=== PATIENT | male | born 1950 | race Caucasian/White ===

== ENCOUNTER 2020-03-29 13:19 | Emergency (ER) | payer OTHER, MEDICARE, SELFPAY ==
[2020-03-29 13:42] VITALS: BP 147/87; PULSE 79; RESP 14; TEMP 36.1; O2SAT 95; BMI 33.4
--- NOTE | 2020-03-29 13:48 | XRR_ITS ---
PROCEDURE INFORMATION: Exam: XR Left Shoulder Exam date and time: 03/29/2020 2:06 PM Age: 70 years old Clinical indication: Injury or trauma; Fall; Initial encounter; Blunt trauma (contusions or hematomas; Shoulder; Left; Injury date: Today; Additional info: Fall, shoulder pain TECHNIQUE: Imaging protocol: XR Left shoulder. Views: 2 or more views. COMPARISON: No relevant prior studies available. FINDINGS: Bones/joints: Negative for acute abnormality Soft tissues: Normal. XR/XR shoulder LT min 2V* [id number] IMPRESSION: No acute findings.
--- NOTE | 2020-03-29 13:48 | XRR_ITS ---
PROCEDURE INFORMATION: Exam: XR Chest, 2 Views Exam date and time: 03/29/2020 2:03 PM Age: 70 years old Clinical indication: Injury or trauma; Fall; Initial encounter; Blunt trauma (contusions or hematomas); Injury date: Today TECHNIQUE: Imaging protocol: XR of the chest Views: 2 views. COMPARISON: CR Chest 1 [place] [id number] 05/21/2017 3:52 PM FINDINGS: Lungs: Unremarkable. No consolidation. Pleural space: Unremarkable. No pleural effusion. No pneumothorax. Heart/Mediastinum: Unremarkable. No cardiomegaly. Bones/joints: Unremarkable. XR/XR chest 2V* [id number] IMPRESSION: No acute findings.
--- NOTE | 2020-03-29 14:27 | W.ED.FALL ---
HPI - Fall General: Chief Complaint: Fall Stated Complaint: fall, shoulder pain Time Seen by Provider: 03/29/20 14:27 Source: patient Mode of arrival: ambulatory Limitations: no limitations History of Present Illness: HPI Narrative: Patient fell 2 days ago while [place]. Patient reports landing on his left shoulder area. Patient's had increased pain and discomfort to the left shoulder area. Patient has some difficulty of range of motion of left shoulder. Patient appears well. No obvious deformity is noted. complaint: fall Review of Systems General: Reports: 10 or more systems reviewed and unremarkable except in HPI and below Musc: Reports: joint pain REPLACED BY [facility] ED PFSH: Medical History (Updated 03/29/20 @ 14:52 by WALT Rogers) Anticoagulation adequate with anticoagulant therapy Xarelto Atrial fibrillation Diabetes 1.5, managed as type 2 HTN (hypertension) Family History Grandmother Cancer MATERNAL Diabetes Grandfather Hypertension MATERNAL Diabetes Social History (Updated 11/09/19 @ 19:29 by Vernell Richardson LPN) Smoking and tobacco status: never smoked Alcohol intake: former Household members: children Marital status: service: Yes 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 Exam Const: COMMON NORMALS: no acute distress and patient oriented x3 GENERAL APPEARANCE: cooperative HENMT: COMMON NORMALS: normocephalic and Normal external nose present HEAD & SCALP: normal to inspection and normocephalic NOSE: Normal external nose present MOUTH: Normal oral and palatal mucosa present THROAT: posterior oropharynx normal Eye: GENERAL EYE: appearance normal, both eyes and all related structures Neck/C-Spine: COMMON NORMALS: full ROM Chest: COMMONS NORMALS: normal inspection of the chest Resp: COMMON NORMALS: normal respiratory effort EFFORT & INSPECTION: Yes able to speak in complete sentences Cardio: COMMON NORMALS: regular rate and regular rhythm RATE: regular rate RHYTHM: regular rhythm GI: COMMON NORMALS: non-tender Back/Pelvis: COMMON NORMALS: thoracic and lumbar spine normal to inspection Extremity: NARRATIVE EXTREMITY EXAM: Passive range of motion is normal for left shoulder. Patient has anterior shoulder tenderness on palpation. No crepitus is noted on palpation. No deformity is noted. Neuro: COMMON NORMALS: patient oriented x3 and moves all extremities Psych: COMMON NORMALS: mental status grossly normal and cooperative Skin: COMMON NORMALS: no rashes or lesions noted GENERAL SKIN EXAM: no rashes or lesions noted Course Vital Signs: Vital signs: Vital Signs Temperature 97.0 F L 03/29/20 13:42 Pulse Rate 79 03/29/20 13:42 Respiratory Rate 14 03/29/20 13:42 Blood Pressure 147/87 03/29/20 13:42 Pulse Oximetry 95 03/29/20 13:42 MDM - Fall MDM Narrative: Medical decision making narrative: Patient comes in today for complaints of injury to the left shoulder area. On exam we note no obvious deformity. No crepitus is noted. Respirations are even lungs are clear to auscultation. Differential diagnosis includes but not limited to fracture, sprain,, contusion. X-ray of the shoulder and the chest were negative for any significant abnormality or fractures. Reviewed exam with patient with recommendations for treatment and follow-up. Patient reported understanding agreed to plan. Discharge Plan Discharge Patient Disposition: Home, Self-Care Clinical Impression: Rotator cuff (capsule) sprain Qualifiers: Encounter type: initial encounter Laterality: left Qualified Code(s): S43.422A - Sprain of left rotator cuff capsule, initial encounter Condition: Stable Prescriptions: New celecoxib 200 mg capsule 200 mg PO BID Qty: 20 RF: 0 hydrocodone-acetaminophen 5-325 mg tablet 1 tab PO Q6H PRN (Reason: pain (scale score 7-10)) Qty: 14 RF: 0 No Action omega-3 fatty acids [Fish Oil Concentrate] 1,000 mg capsule 1,000 mg PO DAILY RF: 0 gabapentin 600 mg tablet 1,200 mg PO TID RF: 0 insulin aspart U-100 [Novolog Flexpen U-100 Insulin] 100 unit/mL (3 mL) insulin pen See Rx Instructions SUBCUT TID RF: 0 metformin 500 mg tablet 500 mg PO BID RF: 0 carvedilol 12.5 mg tablet 6.25 mg PO BID RF: 0 digoxin 250 mcg (0.25 mg) tablet 250 mcg PO DAILY RF: 0 diltiazem HCl 180 mg capsule,extended release 24 hr 180 mg PO DAILY RF: 0 insulin glargine 100 unit/mL solution 15 unit SUBCUT .HS RF: 0 metoprolol tartrate 100 mg tablet 100 mg PO BID RF: 0 cholecalciferol (vitamin D3) [Vitamin D3] 25 mcg (1,000 unit) capsule 1,000 unit PO DAILY RF: 0 Xarelto 20 mg tablet 20 mg PO DAILY RF: 0 Discharge Orders: Discharge Order (Routine); Ordered 03/29/20 Ordered By: Jonnathan Mart Referrals: [facility] [Primary Care Provider] - Discharge Diet: Usual diet Discharge Activity: Increase activity as tolerated Patient Instructions: Shoulder Sprain (ED) Activity Restrictions/Additional Instructions: Increase activity as tolerated. Use medications as directed. Follow-up with primary care in 1 week. Return to the ER for high fever increased shortness of breath. Coding Level of Care Code ED Military Equipment Specialist for Say Fwd Exam Comprehensive
--- NOTE | 2020-03-29 14:30 | PC.NURSE ---
Chavez Mart, ANP in room with patient at this time.
[2020-03-29 15:24] VITALS: BP 142/78; PULSE 88; RESP 18; O2SAT 99
== END 2020-03-29 15:27 | disposition home or self-care (01) ==
PROVIDERS: Emergency Provider Nurse Practitioner Family
DX: S43.422A Sprain of left rotator cuff capsule, initial encounter (principal); Z79.4 Long term (current) use of insulin; W19.XXXA Unspecified fall, initial encounter; I48.91 Unspecified atrial fibrillation; I10 Essential (primary) hypertension; E13.9 Other specified diabetes mellitus without complications
CPT/HCPCS: 12345; 71046; 73030; 99281; 99283

== ENCOUNTER 2020-05-07 15:10 | Observation (INO) | payer OTHER, MEDICARE, SELFPAY ==
[2020-05-07] VITALS (7 sets, daily range): BP systolic 86–140; BP diastolic 59–80; PULSE 79–132; RESP 12–24; TEMP 36.7; O2SAT 94–99; BMI 33.4
--- NOTE | 2020-05-07 15:44 | W.ED.ARRPALP ---
Documented by User: Fermin Mijares DO 05/11/20 15:23 HPI - Arrhythmia/Palpitations General: Chief Complaint: Arrhythmia/Palpitations Stated Complaint: afib rvr, CP Time Seen by Provider: 05/07/20 15:34 History of Present Illness: HPI narrative: 70-year-old male presents the emergency room with complaint of rapid heart rate and chest discomfort began earlier today is gotten progressively worse. He has not missed any medicines or changed any medicines really recently does report that he is on several medications for rate control as well as anticoagulation. He is still having a little bit of chest discomfort today. Did not begin until he noticed a rapid heart rate. He has not had any associated radiation of the chest pain or nausea or vomiting he has had some shortness of breath. He states he has taken all of his medications today. MD complaint: rapid heart beat, heart racing , skipped beats and palpitations Onset (ago): hour(s) Duration: constant Severity: severe Context: occurred during rest Arrhythmia history: atrial fibrillation Associated symptoms: Deny anxiety, cough, diaphoresis, nausea, short of breath, syncope or vomiting Review of Systems Const: Denies: diaphoresis Card: Denies: syncope GI: Denies: nausea or vomiting Psych: Denies: anxiety PFSH ED PFSH: Medical History (Updated 05/09/20 @ 00:00 by ) Anticoagulation adequate with anticoagulant therapy Xarelto Atrial fibrillation Chronic anticoagulation Diabetes 1.5, managed as type 2 Diabetic neuropathy H/O prostate cancer HTN (hypertension) Low back pain Obstructive sleep apnea Refuses CPAP Surgical History (Updated 05/07/20 @ 21:13 by Dev Moreno MD) History of pilonidal cyst S/P appendectomy S/P tonsillectomy Family History Grandmother Cancer MATERNAL Diabetes Grandfather Hypertension MATERNAL Diabetes Social History Smoking and tobacco status: never smoked Alcohol intake: former Household members: children Marital status: service: Yes branch: [employer] 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 Exam Const: COMMON NORMALS: no acute distress GENERAL APPEARANCE: cooperative and comfortable ORIENTATION/CONSCIOUSNESS: Yes awake, Yes oriented to person, Yes oriented to place and Yes oriented to time HENMT: COMMON NORMALS: normocephalic and atraumatic HEAD & SCALP: normocephalic and atraumatic Eye: COMMON NORMALS: Equal, round and reactive pupils present, EOMs intact bilaterally, conjunctivae normal and no scleral icterus CONJUNCTIVA: Yes conjunctivae normal PUPIL: Yes Equal, round and reactive pupils present Neck/C-Spine: COMMON NORMALS: full ROM, no lymphadenopathy and supple Lymph: LYMPHATIC: no lymphadenopathy noted and no lymphedema noted Resp: COMMON NORMALS: normal respiratory effort, No retractions, No use of accessory muscles and clear to auscultation bilaterally AUSCULTATION: clear to auscultation bilaterally Cardio: RATE: tachycardic RHYTHM: abnormal rhythm irregularly irregular GI: COMMON NORMALS: Soft to palpation and No hepatosplenomegaly present AUSCULTATION: Yes normoactive bowel sounds PALPATION: Yes Soft to palpation, No Tenderness to palpation present (GI), No Guarding due to palpation present (GI) and Yes No hepatosplenomegaly present Extremity: COMMON NORMALS: normal to inspection, capillary refill normal, no clubbing, cyanosis or edema, no calf tenderness and no pedal edema Neuro: SENSORIUM/ORIENTATION: Yes oriented to person, Yes oriented to place and Yes oriented to time Skin: COMMON NORMALS: no rashes or lesions noted GENERAL SKIN EXAM: no rashes or lesions noted Course Vital Signs: Vital signs: Vital Signs Temperature 97.0 F L 05/08/20 14:44 Pulse Rate 75 05/08/20 14:44 Respiratory Rate 18 05/08/20 14:44 Blood Pressure 147/73 05/08/20 14:44 Pulse Oximetry 95 05/08/20 14:44 MDM - Arrhythmia/Palpitations MDM Narrative: Medical decision making narrative: Care transferred to Dr. Jackman at change of shift Lab Data: Labs: Lab Results 05/07/20 05/07/20 05/07/20 Range/Units 15:45 15:45 15:45 WBC 14.3 H (4.0-10.0) 10^3/ uL RBC 4.69 (4.1-5.3) 10^6/u L Hgb 14.4 (11.7-16.6) g/dL Hct 42.9 (42.0-52.0) % MCV 91.5 (80-94) fL MCH 30.7 (28.0-34.0) pg MCHC 33.6 (30.0-36.0) g/dL RDW 12.9 (12.1-15.1) % Plt Count 291 (130-400) 10^3/c mm MPV 11.3 H (7.4-10.4) fL Neut % (Auto) 67.2 % Lymph % (Auto) 22.8 % Wake % (Auto) 6.6 % Eos % (Auto) 2.2 % Baso % (Auto) 0.9 % Neut # (Auto) 9.62 H (1.8-7.7) 10^3/u L Lymph # (Auto) 3.3 (0.8-4.8) 10^3/u L Wake # (Auto) 1.0 H (0.2-0.9) 10^3/u L Eos # (Auto) 0.3 (0.0-0.8) 10^3/u L Baso # (Auto) 0.1 (0.0-0.1) 10^3/u L Nucleated RBC % (a uto) 0 % Nucleated RBCs # 0.0 /100WBC Sodium 135 L (136-145) mmol/L Potassium 4.5 (3.5-5.1) mmol/L Chloride 98 (98-107) mmol/L Carbon Dioxide 22 (22-29) mmol/L Anion Gap 19.5 H (5-19) BUN 17 (8-23) mg/dL Creatinine 1.0 (0.7-1.2) mg/dL GFR Calculation Not Reportable Glucose 384 H (65-115) mg/dL Calculated Osmolal ity 292 (285-295) mOsm/k g Calcium 9.7 (8.5-10.5) mg/dL Magnesium (1.7-2.3) mg/dL Total Bilirubin 0.4 (0.15-1.2) mg/dL AST 37 (0-40) U/L ALT 32 (0-41) U/L Alkaline Phosphata se 55 (40-130) IU/L Troponin T Baselin e 43 H (0-15) ng/L Troponin T 120 Min [place] (0-15) ng/L Delta Troponin T (0-10) ABS# Total Protein 6.2 L (6.6-8.7) g/dL Albumin 4.2 (3.5-5.2) g/dL Globulin 2.0 (1.3-4.6) g/dL TSH (0.27-4.20) uIU/ mL Digoxin 1.2 (0.6-1.2) ng/mL 05/07/20 05/07/20 Range/Units 17:39 17:39 WBC (4.0-10.0) 10^3/ uL RBC (4.1-5.3) 10^6/u L Hgb (11.7-16.6) g/dL Hct (42.0-52.0) % MCV (80-94) fL MCH (28.0-34.0) pg MCHC (30.0-36.0) g/dL RDW (12.1-15.1) % Plt Count (130-400) 10^3/c mm MPV (7.4-10.4) fL Neut % (Auto) % Lymph % (Auto) % Wake % (Auto) % Eos % (Auto) % Baso % (Auto) % Neut # (Auto) (1.8-7.7) 10^3/u L Lymph # (Auto) (0.8-4.8) 10^3/u L Wake # (Auto) (0.2-0.9) 10^3/u L Eos # (Auto) (0.0-0.8) 10^3/u L Baso # (Auto) (0.0-0.1) 10^3/u L Nucleated RBC % (a uto) % Nucleated RBCs # /100WBC Sodium (136-145) mmol/L Potassium (3.5-5.1) mmol/L Chloride (98-107) mmol/L Carbon Dioxide (22-29) mmol/L Anion Gap (5-19) BUN (8-23) mg/dL Creatinine (0.7-1.2) mg/dL GFR Calculation Glucose (65-115) mg/dL Calculated Osmolal ity (285-295) mOsm/k g Calcium (8.5-10.5) mg/dL Magnesium 1.7 (1.7-2.3) mg/dL Total Bilirubin (0.15-1.2) mg/dL AST (0-40) U/L ALT (0-41) U/L Alkaline Phosphata se (40-130) IU/L Troponin T Baselin e (0-15) ng/L Troponin T 120 Min [place] 46.36 H (0-15) ng/L Delta Troponin T 3.36 (0-10) ABS# Total Protein (6.6-8.7) g/dL Albumin (3.5-5.2) g/dL Globulin (1.3-4.6) g/dL TSH 0.68 (0.27-4.20) uIU/ mL Digoxin (0.6-1.2) ng/mL Discharge Plan Discharge Patient Disposition: Admitted As Inpatient Admit Provider: Dev Moreno Clinical Impression: Chest pain, Atrial fibrillation with RVR Condition: Stable Referrals: Poli Klein MD [Physician] - 1-3 days (You have an follow-up appointment with Marti Bee on May 10 at 3:00p.m. If you have any questions or need to reschedule. Please call ) [facility] [Primary Care Provider] - (You have an follow-up appointment on May 11 at 10:30a.m. If you have any questions or need to reschedule. ) Discharge Diet: Usual diet Discharge Activity: Resume usual activity Patient Instructions: Atrial Fibrillation (DC), Diabetes Mellitus Type 2 in Adults (DC), Hypertension (DC), Chest Pain Stoplight Discharge Date/Time: 05/07/20 20:40 Sign Out Sign Out Data: Patient Sign Out occurred on 05/07/20 at 18:25. Patient's care was discussed, and care was transferred from to Dara Veliz. Coding Level of Care Code ED Deputy Court Clerk for Ynesg Fuadd Documented by User: Dara Veliz 05/07/20 19:48 HPI - Arrhythmia/Palpitations General: Chief Complaint: Arrhythmia/Palpitations Stated Complaint: afib rvr, CP Time Seen by Provider: 05/07/20 15:34 PFSH ED PFSH: Medical History (Updated 05/09/20 @ 00:00 by ) Anticoagulation adequate with anticoagulant therapy Xarelto Atrial fibrillation Chronic anticoagulation Diabetes 1.5, managed as type 2 Diabetic neuropathy H/O prostate cancer HTN (hypertension) Low back pain Obstructive sleep apnea Refuses CPAP Surgical History (Updated 05/07/20 @ 21:13 by Dev Moreno MD) History of pilonidal cyst S/P appendectomy S/P tonsillectomy Family History Grandmother Cancer MATERNAL Diabetes Grandfather Hypertension MATERNAL Diabetes Social History Smoking and tobacco status: never smoked Alcohol intake: former Household members: children Marital status: service: Yes branch: [employer] Current occupational status: retired 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 Moreno, he will come down to see and evaluate the patient. Lab Data: Labs: Lab Results 05/07/20 05/07/20 05/07/20 Range/Units 15:45 15:45 15:45 WBC 14.3 H (4.0-10.0) 10^3/ uL RBC 4.69 (4.1-5.3) 10^6/u L Hgb 14.4 (11.7-16.6) g/dL Hct 42.9 (42.0-52.0) % MCV 91.5 (80-94) fL MCH 30.7 (28.0-34.0) pg MCHC 33.6 (30.0-36.0) g/dL RDW 12.9 (12.1-15.1) % Plt Count 291 (130-400) 10^3/c mm MPV 11.3 H (7.4-10.4) fL Neut % (Auto) 67.2 % Lymph % (Auto) 22.8 % Wake % (Auto) 6.6 % Eos % (Auto) 2.2 % Baso % (Auto) 0.9 % Neut # (Auto) 9.62 H (1.8-7.7) 10^3/u L Lymph # (Auto) 3.3 (0.8-4.8) 10^3/u L Wake # (Auto) 1.0 H (0.2-0.9) 10^3/u L Eos # (Auto) 0.3 (0.0-0.8) 10^3/u L Baso # (Auto) 0.1 (0.0-0.1) 10^3/u L Nucleated RBC % (a uto) 0 % Nucleated RBCs # 0.0 /100WBC Sodium 135 L (136-145) mmol/L Potassium 4.5 (3.5-5.1) mmol/L Chloride 98 (98-107) mmol/L Carbon Dioxide 22 (22-29) mmol/L Anion Gap 19.5 H (5-19) BUN 17 (8-23) mg/dL Creatinine 1.0 (0.7-1.2) mg/dL GFR Calculation Not Reportable Glucose 384 H (65-115) mg/dL Calculated Osmolal ity 292 (285-295) mOsm/k g Calcium 9.7 (8.5-10.5) mg/dL Magnesium (1.7-2.3) mg/dL Total Bilirubin 0.4 (0.15-1.2) mg/dL AST 37 (0-40) U/L ALT 32 (0-41) U/L Alkaline Phosphata se 55 (40-130) IU/L Troponin T Baselin e 43 H (0-15) ng/L Troponin T 120 Min [place] (0-15) ng/L Delta Troponin T (0-10) ABS# Total Protein 6.2 L (6.6-8.7) g/dL Albumin 4.2 (3.5-5.2) g/dL Globulin 2.0 (1.3-4.6) g/dL TSH (0.27-4.20) uIU/ mL Digoxin 1.2 (0.6-1.2) ng/mL 05/07/20 05/07/20 Range/Units 17:39 17:39 WBC (4.0-10.0) 10^3/ uL RBC (4.1-5.3) 10^6/u L Hgb (11.7-16.6) g/dL Hct (42.0-52.0) % MCV (80-94) fL MCH (28.0-34.0) pg MCHC (30.0-36.0) g/dL RDW (12.1-15.1) % Plt Count (130-400) 10^3/c mm MPV (7.4-10.4) fL Neut % (Auto) % Lymph % (Auto) % Wake % (Auto) % Eos % (Auto) % Baso % (Auto) % Neut # (Auto) (1.8-7.7) 10^3/u L Lymph # (Auto) (0.8-4.8) 10^3/u L Wake # (Auto) (0.2-0.9) 10^3/u L Eos # (Auto) (0.0-0.8) 10^3/u L Baso # (Auto) (0.0-0.1) 10^3/u L Nucleated RBC % (a uto) % Nucleated RBCs # /100WBC Sodium (136-145) mmol/L Potassium (3.5-5.1) mmol/L Chloride (98-107) mmol/L Carbon Dioxide (22-29) mmol/L Anion Gap (5-19) BUN (8-23) mg/dL Creatinine (0.7-1.2) mg/dL GFR Calculation Glucose (65-115) mg/dL Calculated Osmolal ity (285-295) mOsm/k g Calcium (8.5-10.5) mg/dL Magnesium 1.7 (1.7-2.3) mg/dL Total Bilirubin (0.15-1.2) mg/dL AST (0-40) U/L ALT (0-41) U/L Alkaline Phosphata se (40-130) IU/L Troponin T Baselin e (0-15) ng/L Troponin T 120 Min [place] band 46.36 H (0-15) ng/L Delta Troponin T 3.36 (0-10) ABS# Total Protein (6.6-8.7) g/dL Albumin (3.5-5.2) g/dL Globulin (1.3-4.6) g/dL TSH 0.68 (0.27-4.20) uIU/ mL Digoxin (0.6-1.2) ng/mL Discharge Plan Discharge Patient Disposition: Admitted As Inpatient Admit Provider: Dev Moreno Clinical Impression: Chest pain, Atrial fibrillation with RVR Condition: Stable Referrals: Poli Klein MD [Physician] - 1-3 days (You have an follow-up appointment with Marti Bee on May 10 at 3:00p.m. If you have any questions or need to reschedule. Please call ) [facility] [Primary Care Provider] - (You have an follow-up appointment on May 11 at 10:30a.m. If you have any questions or need to reschedule. ) Discharge Diet: Usual diet Discharge Activity: Resume usual activity Patient Instructions: Atrial Fibrillation (DC), Diabetes Mellitus Type 2 in Adults (DC), Hypertension (DC), Chest Pain Stoplight Discharge Date/Time: 05/07/20 20:40 Sign Out Sign Out Data: Patient Sign Out occurred on 05/07/20 at 18:25. Patient's care was discussed, and care was transferred from to Dara Veliz. Coding Level of Care Code ED Deputy Court Clerk for Say Muñoz
--- NOTE | 2020-05-07 15:45 | XRR_ITS ---
PROCEDURE INFORMATION: Exam: XR Chest, 1 View Exam date and time: 05/07/2020 3:47 PM Age: 70 years old Clinical indication: Cough and dyspnea; Additional info: Dyspnea/cough TECHNIQUE: Imaging protocol: XR of the chest Views: 1 view. COMPARISON: CR XR chest 2V* [id number] 03/29/2020 2:01 PM FINDINGS: Lungs: Unremarkable. No consolidation. Pleural space: Unremarkable. No pleural effusion. No pneumothorax. Heart/Mediastinum: Unremarkable. No cardiomegaly. Bones/joints: Unremarkable. XR/XR chest 1V portable [id number] IMPRESSION: No acute findings.
--- NOTE | 2020-05-07 15:45 | ECG_ITS ---
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 Measurements Intervals [place] Rate: 132 P: CO: -1 QRS: 101 QRSD: 130 T: -33 QT: 259 QTc: 385 Interpretive Statements ATRIAL FIBRILLATION WITH RAPID VENTRICULAR RESPONSE MARKED RIGHT AXIS DEVIATION [QRS AXIS > 100] POSSIBLE INFERIOR MYOCARDIAL INFARCTION [30 ms Q WAVE IN II/aVF], PROBABLY OLD WARNING: DATA QUALITY MAY AFFECT INTERPRETATION INTERPRETATION BASED ON A DEFAULT AGE OF 40 YEARS Compared to ECG 05/26/2017 06:18:27 Right-axis deviation now present Myocardial infarct finding now present Sinus rhythm no longer present Right bundle-branch block no longer present Lead V1 is missing Electronically Signed On 05-07-2020 20:33:06 CDT by Meghan Valles M.D. [id number]
[2020-05-07] MEDS: metoprolol tartrate 1 mg/1 mL SDV 5 mL 5 MG IV (16:02)
[2020-05-07] MEDS: carvedilol 12.5 mg Tablet PO ×2 (16:02→17:12)
[2020-05-07 16:03] LABS: Basophils # 0.1 10^3/uL (0.0-0.1); Basophils % 0.9 %; Eosinophils # 0.3 10^3/uL (0.0-0.8); Eosinophils % 2.2 %; Hematocrit 42.9 % (42.0-52.0); Hemoglobin 14.4 g/dL (11.7-16.6); Lymphocytes # 3.3 10^3/uL (0.8-4.8); Lymphocytes % 22.8 %; Mean Corpuscular HGB Conc 33.6 g/dL (30.0-36.0); Mean Corpuscular Hemoglobin 30.7 pg (28.0-34.0); Mean Corpuscular Volume 91.5 fL (80-94); Mean Platelet Volume 11.3 fL (7.4-10.4); Monocytes % 6.6 %; Neutrophils # 9.62 10^3/uL (1.8-7.7); Neutrophils % 67.2 %; Nucleated Red Blood Cells % 0 %; Platelet Count 291 10^3/cmm (130-400); Red Blood Count 4.69 10^6/uL (4.1-5.3); Red Cell Distribution Width 12.9 % (12.1-15.1); White Blood Count 14.3 10^3/uL (4.0-10.0)
[2020-05-07 16:25] LABS: Troponin(5th) Baseline 43 ng/L (0-15)
[2020-05-07 16:39] LABS: Alanine Aminotransferase 32 U/L (0-41); Albumin Level 4.2 g/dL (3.5-5.2); Alkaline Phosphatase 55 IU/L (40-130); Aspartate Amino Transferase 37 U/L (0-40); Blood Urea Nitrogen 17 mg/dL (8-23); Calcium 9.7 mg/dL (8.5-10.5); Carbon Dioxide 22 mmol/L (22-29); Chloride 98 mmol/L (98-107); Creatinine Clr Calc Pharmacy 77.5828; Digoxin 1.2 ng/mL (0.6-1.2); Glucose 384 mg/dL (65-115); Osmolality Calculated 292 mOsm/kg (285-295); Sodium 135 mmol/L (136-145); Total Bilirubin 0.4 mg/dL (0.15-1.2); Total Protein 6.2 g/dL (6.6-8.7)
--- NOTE | 2020-05-07 16:48 | PC.NURSE ---
Second EKG performed at this time, given to Dr. Mijares for review, no new orders recieved, updated the doctor on patient's pain
[2020-05-07 17:01] LABS: Anion Gap 19.5 (5-19); Potassium 4.5 mmol/L (3.5-5.1)
[2020-05-07] MEDS: metoprolol tartrate 1 mg/1 mL SDV 5 mL 2.5 MG IV (17:12)
--- NOTE | 2020-05-07 17:45 | ECG_ITS ---
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 Measurements Intervals [place] Rate: 92 P: GA: -1 QRS: 83 QRSD: 129 T: 42 QT: 355 QTc: 439 Interpretive Statements ATRIAL FLUTTER/TACHYCARDIA RIGHT BUNDLE BRANCH BLOCK [120+ ms QRS DURATION, UPRIGHT V1, 40+ ms S IN I/aVL/V4/V5/V6] Compared to ECG 05/07/2020 15:22:55 Right bundle-branch block now present Atrial fibrillation no longer present Right-axis deviation no longer present Myocardial infarct finding no longer present Electronically Signed On 05-07-2020 20:38:11 CDT by Meghan Valles M.D. [id number]
[2020-05-07 18:01] LABS: Troponin 5 2HR 46.36 ng/L (0-15); Troponin 5 2HR Delta 3.36 ABS# (0-10)
--- NOTE | 2020-05-07 20:08 | P.HP_ITS ---
Providers/Chief Complaint Primary Care Provider: [facility] Chief Complaint: CP History of Present Illness Raphael Deal is a 70 year old male that presented with chest discomfort. He reports this was going on for approximately 3 hours prior to coming. He reports it was chest pressure, substernal. This is similar to what he experienced in 2017 when he was admitted for atrial fibrillation. He did not feel palpitations. Originally, he went to the cardiac clinic to try to get a letter for an upcoming surgery. But he mentioned to them that he had chest discomfort he was directed to the emergency department. There his heart rate was found to be 130. Patient reports no chest discomfort currently. He denies any fever, cough, recent exposure to COVID. He reports his heart rate has been under good control for the last 3 years or so, and he follows up in cardiology clinic with Dr. Klein. He denies any nausea, shortness of breath. 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 While in the emergency department, he received metoprolol IV, and then a dose of carvedilol. Blood pressure was somewhat soft following these medications. Review of Systems General: Reports: 10 or more systems reviewed and unremarkable except in HPI and below Const: Denies: fever(s) or chills Eyes: Denies: change in vision ENMT: Denies: throat pain Card: Reports: chest pain; Denies: palpitations Resp: Denies: dyspnea GI: Denies: abdominal pain : Denies: flank pain Musc: Denies: neck pain Skin/Breast: Denies: rash Neuro: Denies: headache(s) Psych: Denies: anxiety or depression Endo: Reports: polyuria (Urinates frequently at night) Felix/Lymph: Denies: easy bruising All/Imm: Denies: urticaria Medications/Allergies Home Medications Medication Instructions Recorded Confirmed Last Taken Type cholecalciferol (vitamin D3) 25 3,000 unit PO DAILY 11/07/19 05/07/20 Unknown History mcg (1,000 unit) capsule digoxin 250 mcg (0.25 mg) tablet 250 mcg PO DAILY 11/07/19 05/07/20 Unknown History insulin aspart U-100 100 unit/mL See Rx Instructions SUBCUT TID 11/07/19 05/07/20 Unknown History (3 mL) subcutaneous pen insulin glargine 100 unit/mL 100 unit SUBCUT BID ml 11/07/19 05/07/20 Unknown History subcutaneous solution metformin 500 mg tablet 1,000 mg PO BID 11/07/19 05/07/20 Unknown History omega-3 fatty acids 1,000 mg 1,000 mg PO BID 11/07/19 05/07/20 Unknown History capsule rivaroxaban 20 mg tablet 20 mg PO DAILY 11/07/19 05/07/20 05/06/20 History celecoxib 200 mg PO BID #20 cap 03/29/20 05/07/20 Unknown Rx albuterol sulfate [ProAir HFA] 2 puff INHALATION QID PRN 05/07/20 05/07/20 Unknown History benzonatate 100 mg PO TID PRN 05/07/20 05/07/20 Unknown History cinnamon bark [Cinnamon] 1,000 mg PO BID 05/07/20 05/07/20 Unknown History fluticasone propionate [Flonase 2 spray INTRANASAL DAILY PRN 05/07/20 05/07/20 Unknown History Allergy Relief] furosemide [Lasix] 20 mg PO QAM 05/07/20 05/07/20 Unknown History gabapentin 800 mg PO TID 05/07/20 05/07/20 Unknown History ibuprofen 600 mg PO PRN 05/07/20 05/07/20 Unknown History lidocaine See Rx Instructions .ROUTE .COMPLEX 05/07/20 05/07/20 Unknown History lisinopril 10 mg PO DAILY 05/07/20 05/07/20 Unknown History methyl salicylate-menthol [Pain See Rx Instructions .ROUTE .COMPLEX 05/07/20 05/07/20 Unknown History Relieving (m-salic-men)] rosuvastatin [Crestor] 20 mg PO QPM 05/07/20 05/07/20 Unknown History sotalol 80 mg PO BID 05/07/20 05/07/20 Unknown History Allergies Allergy/AdvReac Type Severity Reaction Status Date / Time No Known Allergies Allergy Verified 11/09/19 19:23 PFSH Acute PFSH: Medical History (Updated 05/07/20 @ 21:13 by Dev Moreno MD) Anticoagulation adequate with anticoagulant therapy Xarelto Atrial fibrillation Chronic anticoagulation Diabetes 1.5, managed as type 2 Diabetic neuropathy H/O prostate cancer HTN (hypertension) Low back pain Obstructive sleep apnea Refuses CPAP Surgical History (Updated 05/07/20 @ 21:13 by Dev Moreno MD) History of pilonidal cyst S/P appendectomy S/P tonsillectomy Family History Grandmother Cancer MATERNAL Diabetes Grandfather Hypertension MATERNAL Diabetes Social History Smoking and tobacco status: never smoked Alcohol intake: former Household members: children Marital status: service: Yes branch: [employer] 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 Oropharynx clear. Neck is supple no lymphadenopathy or thyromegaly Cardiovascular currently regular rate and rhythm without murmur Lungs clear no wheezing or crackles Abdomen is soft with positive bowel sounds. No obvious organomegaly deferred Extremities no cyanosis clubbing or edema, cap refill brisk Skin no rash Neuro no obvious focal deficits. Data : 05/07/20 15:45 05/07/20 15:45 Other data: Troponin 43 at baseline, 120 minutes at 46 Digoxin level 1.2 Chest x-ray no infiltrate Initial EKG atrial fibrillation, borderline right axis deviation, nonspecific ST-T wave changes. No evidence of ST elevation. Follow-up shows atrial flutter. Nonspecific ST-T wave changes, inferior leads A&P Assessment and plan (1) Chest pain: Minor elevation in troponin. Secondary to possibility of underlying ischemic disease unmasked by elevated heart rate will arrange for nuclear stress testing tomorrow Observation Status: Acute Qualifiers: Chest pain type: unspecified Qualified Code(s): R07.9 - Chest pain, unspecified (2) Atrial fibrillation with RVR: Check echocardiogram Continue Betapace Add metoprolol 12.5 mg twice daily Continue digoxin Observation Telemetry Check magnesium Check TSH Status: Acute Additional A&P Information Mild leukocytosis. Recheck in the morning. Doubt infection. Check urinalysis. Type II diabetes. Sliding scale insulin. Reduce dose of Lantus as he will be n.p.o. in the morning for stress testing. Hypertension Peripheral neuropathy Chronic low back pain Obstructive sleep apnea for which he refuses treatment Full code Anticoagulation with rivaroxaban will suffice for DVT prophylaxis Attestations Medical Necessity Statement*: Will need less than 2 midnight stay for evaluation and treatment of atrial fibrillation and chest discomfort. 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
[2020-05-07 21:27] LABS: Glucose Point of Care 254 mg/dL (70-110)
[2020-05-07 21:32] LABS: Magnesium 1.7 mg/dL (1.7-2.3); Thyroid Stimulating Hormone 0.68 uIU/mL (0.27-4.20)
--- NOTE | 2020-05-07 21:37 | ECG_ITS ---
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 Interpretive Statements NAME OF STUDY: LEXISCAN SESTAMIBI STRESS TEST INDICATION: [Chest Pain] Procedure: At the baseline blood pressure was 130/70 mmHg, oxygen saturation of 92% with a heart rate of 72. The EKG showed normal sinus rhythm with first-degree AV block and right bundle branch block. The Lexiscan was infused over 20 seconds and total of 0.4 mg of Lexiscan was infused. The stress phase was continued for a total of 5 minutes. Heart rate at the end of stress phase was 77. Oxygen saturation of 92% with a blood pressure of 113/85. Sestamibi was injected 20 seconds after the Lexiscan infusion. Pressure at the end of recovery phase was 125/67 with oxygen saturation of 92% and a heart rate of 77. Conclusion: 1) Normal EKG response to Lexiscan infusion 2) No Lexiscan induced chest pain. PVCs were noted during stress phase 3) Normal blood pressure and heart rate response 4) Sestamibi/sestamibi perfusion scan interpreted separately. The separate report. Electronically Signed On 05-08-2020 18:00:13 CDT by Aleks Narvaez M.D. [id number]
[2020-05-07] MEDS: gabapentin 400 mg Capsule 800 MG PO (21:44)
[2020-05-07] MEDS: insulin glargine 100 units/1 mL 50 UNIT SUBCUT (21:44)
--- NOTE | 2020-05-07 21:45 | ECG_ITS ---
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 Measurements Intervals [place] Rate: 79 P: 142 OR: 208 QRS: 118 QRSD: 136 T: 155 QT: 349 QTc: 400 Interpretive Statements SINUS RHYTHM ARM LEADS REVERSED [INVERTED P AND QRS IN I] Right bundle branch block Compared to ECG 05/07/2020 16:44:08 Atrial flutter no longer present Right bundle-branch block no longer present Electronically Signed On 05-08-2020 12:56:03 CDT by June Hernández M.D. [id number]
[2020-05-07] MEDS: sodium chloride 0.9% 1,000 ML 50 ML IV (21:46)
[2020-05-07 22:22] LABS: Troponin 5 6HR 44.88 ng/L (0-15); Troponin 5 6HR Delta 1.88 ng/L (0-12)
[2020-05-08] VITALS (8 sets, daily range): BP systolic 111–148; BP diastolic 63–80; PULSE 65–81; RESP 16–20; TEMP 36.1–37; O2SAT 92–95
--- NOTE | 2020-05-08 00:34 | PC.NURSE ---
PT ARRIVED TO ROOM 112-2. PT AMBULATED TO BED FROM GARCIA. PT WAS ORIENTATED TO ROOM. PT WAS GIVEN PASSWORD BUT PT STATES THAT THEY HAVE A CELL PHONE AND DON'T NEED IT. VS WNL. PT IS IN A SR IN THE 80'S. WILL CONTINUE TO MONITOR.
--- NOTE | 2020-05-08 04:21 | PC.NURSE ---
PT RESTING IN BED. PT DENIES PAIN AT THIS TIME. V/S WNL. NS RUNNING AT 50ML/HR. WILL GIVE REPORT TO ON COMING NURSE.
[2020-05-08 04:41] LABS: Basophils # 0.1 10^3/uL (0.0-0.1); Eosinophils # 0.4 10^3/uL (0.0-0.8); Eosinophils % 3.3 %; Hematocrit 37.6 % (42.0-52.0); Hemoglobin 12.1 g/dL (11.7-16.6); Lymphocytes # 4.1 10^3/uL (0.8-4.8); Lymphocytes % 35.9 %; Mean Corpuscular HGB Conc 32.2 g/dL (30.0-36.0); Mean Corpuscular Volume 93.1 fL (80-94); Mean Platelet Volume 11.2 fL (7.4-10.4); Monocytes # 0.9 10^3/uL (0.2-0.9); Neutrophils # 5.88 10^3/uL (1.8-7.7); Neutrophils % 51.5 %; Nucleated Red Blood Cells % 0 %; Platelet Count 245 10^3/cmm (130-400); Red Blood Count 4.04 10^6/uL (4.1-5.3); Red Cell Distribution Width 12.8 % (12.1-15.1); White Blood Count 11.4 10^3/uL (4.0-10.0)
[2020-05-08 05:11] LABS: Anion Gap 13.7 (5-19); Blood Urea Nitrogen 17 mg/dL (8-23); Calcium 9.1 mg/dL (8.5-10.5); Carbon Dioxide 23 mmol/L (22-29); Chloride 106 mmol/L (98-107); Creatinine Clr Calc Pharmacy 86.2031; Glucose 144 mg/dL (65-115); Osmolality Calculated 287 mOsm/kg (285-295); Potassium 3.7 mmol/L (3.5-5.1); Sodium 139 mmol/L (136-145)
[2020-05-08 06:10] LABS: Glucose Point of Care 151 mg/dL (70-110)
--- NOTE | 2020-05-08 08:00 | NMCV_ITS ---
NM thony perf SPECT r/s* [id number] Raphael Deal Age: 70 Gender: M : 1950 Exam Date: 05/08/2020 07:53 Ordering Phys: Dev Moreno MD Technologist: TWILA Rivera Exam Location: [facility] Indications: Chest pain STRESS TEST Please see separate stress test report in [facility] for full findings IMAGE PROTOCOL Rest/Stress 1 Lexiscan Day Radiopharmaceutical Dose (mCi) Administration Site Administered by Rest: Tc-99m 11.0 IV TWILA Rivera Sestamibi Stress:Tc-99m 32.3 IV TWILA Sadler Sestamibi Rest: 08-May-2020 60 Discovery 630 Stress: 08-May-2020 60 Discovery 630 0.4mg Lexiscan. Supine position only as patient was unable to lay prone. SPECT RESULTS Technical Quality: Good Raw Data Analysis: Normal Image Corrections: No attenuation or motion correction applied Summed Stress Score: 0 Summed Rest Score: 0 Summed Difference Score: 0 PERFUSION FINDINGS SPECT images demonstrate homogeneous tracer distribution throughout the myocardium. FUNCTIONAL RESULTS (calculated via Gated SPECT) Stress Image LV EF (%): 60 Stress EDV (mL):108 TID: 1.11 Stress ESV (mL):43 FUNCTIONAL FINDINGS: There is normal left ventricular systolic function. IMPRESSIONS Myocardial perfusion imaging is normal. EKG portion of the study will be interpreted separately.ina1! Aleks Narvaez MD (Electronically Signed) Final Date: 08 May 2020 11:02 S
[2020-05-08 08:02] LABS: Bilirubin Urine Neg (NEGATIVE); Blood Urine Neg (Negative); Glucose Urine UA 2+ (Normal); Ketones Urine Negative (Negative); Leukocyte Esterase Urine Negative (Negative); Nitrate Urine Negative (Negative); Protein Urine Trace (Negative); Urine Appearance Clear (CLEAR); Urine Color Yellow (Yellow); Urobilinogen Urine Norm (Negative); pH Urine 5 (5-7)
[2020-05-08 08:07] LABS: Add Urine Culture? No; Amorphous Sediment Urine TRACE; Bacteria Urine TRACE; Hyaline Casts Urine 0-4; Mucus Urine TRACE; Other Casts Urine 0-4 /lpf; RBC Urine 0-4 /hpf (0-2); WBC Urine 0-4 /hpf (0-5)
--- NOTE | 2020-05-08 08:41 | SUR.PREOP ---
Patient reports no pain or discomfort prior to the start of the procedure.
[2020-05-08] MEDS: regadenoson 0.4 Mg/5 ml Syringe IVP (08:47)
[2020-05-08] MEDS: lisinopril 20 mg Tablet 10 MG PO (09:05)
[2020-05-08] MEDS: gabapentin 400 mg Capsule 800 MG PO ×2 (09:06→14:12)
[2020-05-08] MEDS: digoxin 250 mcg Tablet PO (09:06)
[2020-05-08] MEDS: sotalol 80 mg Tablet PO (09:06)
[2020-05-08] MEDS: rivaroxaban 10 mg Tablet 20 MG PO (09:10)
[2020-05-08] MEDS: metoprolol tartrate 25 mg Tablet 12.5 MG PO (09:10)
--- NOTE | 2020-05-08 09:27 | PC.NURSE ---
patient off unit for stress test. 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
--- NOTE | 2020-05-08 10:14 | PC.NURSE ---
patient back form stress test.
--- NOTE | 2020-05-08 10:43 | PC.NURSE ---
Patient reports having loose stools, so far 2 loose stools have been reported. Nurse asked patient to continue to report further loose stools will continue to monitor and report further events to provider
[2020-05-08 11:30] LABS: Glucose Point of Care 213 mg/dL (70-110)
--- NOTE | 2020-05-08 11:46 | PC.CHAP ---
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 floor polisher visit [] Patient/Family/Request visit [] Outpatient visit [] Follow-up visit [] Physician referral [] Code/Alert [x] Routine visit [] Staff referral [] Actively dying [] Patient sleeping [] Family support [] [] Out of room [] Palliative care [] [x] Receiving care in room [] Pre-surgical visit [] Trauma [] Long length of stay [] ICU visit [] Other: Relational/Emotional Strength [] Patient feels connected with others/family/visitors/staff [] Distress [] Loneliness/isolation [] Abandonment Spirituality of Patient [x] Person of Melva [] Attends Catholic of their Melva [x] Believes in Prayer [] Reads Bible or Adventist materials [] There are Spiritual issues to be addressed Patient Support Representative Interventions [x] Prayer [x] Active listening [x] Non-anxious presence [x] Spiritual/emotional support [] Crisis/trauma care [x] Spiritual counseling [] Bereavement support [] Provided bereavement packet [] Provided Bible/devotional materials [] Provided toy/stuffed animal, coloring book to patient or family member [] Provided Communion [] Anointing/[place] [] Salvation [x] Completed spiritual assessment [] Other: Impact on Illness or Injury [] Angry [x] Fearful [x] Anxious [] Often cries [] Exhaustion [] Unable to work [] Unable to attend roman catholic [] Unable to walk/stand [] Unable to read [] Unable to drive [] Unable to eat/drink [] Unable to sleep [] Unable to be with family [] Patient intubated [] Other: Summary Dealing with heart, has had tests doesn't know the results, has back problem / pain has a good attititude, doen't know when can go home Time spent with patient 10 mins
--- NOTE | 2020-05-08 12:25 | P.DS_ITS ---
Discharge Providers Date of Admission: 05/07/20 20:05 Date of Discharge: May 08, 2020 Attending Provider at Admission: Dev Moreno MD Attending Provider at Discharge: Suzi Coats MD Primary Care Provider: [facility] Diagnoses at Discharge Discharge Diagnosis (1) Chest pain: Status: Acute Qualifiers: Chest pain type: unspecified Qualified Code(s): R07.9 - Chest pain, unspecified (2) Atrial fibrillation with RVR: Status: Acute Reason for Visit Reason for Visit: CP Hospital Course Discharge Summary: Raphael Deal is a 70 year old male that presented with chest discomfort. He reports this was going on for approximately 3 hours prior to coming. He reports it was chest pressure, substernal. This is similar to what he experienced in 2017 when he was admitted for atrial fibrillation. Upon presentation his HR was 130s, subsequently has been between 60 to 80 bpm. There were no acute ST-T which wave changes noted. Troponins delta not significant. He remains chest pain-free with heart rate control. He did undergo a stress test this morning due to concern for unstable angina and per report is normal. Echocardiogram was also done which shows LVEF of 65% and no diastolic dysfunction. No regional wall motion abnormalities appreciated. 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 Physical Exam Narrative: EXAM NARRATIVE: GEN: Awake, alert and oriented, no acute distress CVS: S1S2 N RS: CTA B/L Abd: Soft, nt/nd , bs+ MANAGER HIGHW[address]: no focal neuro deficits Discharge Data Data Completed and Pending: Completed Studies During Hospitalization Category Date Time Status Sestamibi Stress Test Request Wilfrido ne Exams 05/07/20 21:37 Draft XR chest 1V johnathan ble [id number] Stat Exams 05/07/20 15:45 Completed NM thony perf SPECT r/s* [id number] Routin e Nuc Med 05/08/20 08:00 Completed CV echo complete* [id number] Routine Ultrasound 05/08/20 21:37 Completed Labs from last 24 hours 05/08/20 05/08/20 05/08/20 11:24 07:30 06:05 WBC RBC Hgb Hct MCV MCH MCHC RDW Plt Count MPV Neut % (Auto) Lymph % (Auto) Kings % (Auto) Eos % (Auto) Baso % (Auto) Neut # (Auto) Lymph # (Auto) Kings # (Auto) Eos # (Auto) Baso # (Auto) Nucleated RBC % (a uto) Nucleated RBCs # Sodium Potassium Chloride Carbon Dioxide Anion Gap BUN Creatinine GFR Calculation Glucose POC Glucose 213 151 Calculated Osmolal ity Calcium Magnesium Total Bilirubin AST ALT Alkaline Phosphata se Troponin T Baselin e Troponin T 120 Min [place] Delta Troponin T Troponin T Hi Sens 6Hr Troponin T Hi Sens 6Hr Delta Total Protein Albumin Globulin TSH Urine Color Yellow Urine Appearance Clear Urine pH 5 Ur Specific Gravit y 1.020 Urine Protein Trace Urine Glucose (UA) 2+ Urine Ketones Negative Urine Blood Neg Urine Nitrate Negative Urine Bilirubin Neg Urine Urobilinogen Norm Ur Leukocyte Mary ase Negative Urine RBC 0-4 H Urine WBC 0-4 H Ur Squamous Epith Cells 5-10 H Amorphous Sediment Trace Urine Bacteria Trace Hyaline Casts 0-4 H Other Casts 0-4 Urine Mucus Trace Digoxin 05/08/20 05/08/20 05/07/20 04:12 04:12 21:43 WBC 11.4 H RBC 4.04 L Hgb 12.1 Hct 37.6 L MCV 93.1 MCH 30.0 MCHC 32.2 RDW 12.8 Plt Count 245 MPV 11.2 H Neut % (Auto) 51.5 Lymph % (Auto) 35.9 Kings % (Auto) 8.0 Eos % (Auto) 3.3 Baso % (Auto) 1.0 Neut # (Auto) 5.88 Lymph # (Auto) 4.1 Kings # (Auto) 0.9 Eos # (Auto) 0.4 Baso # (Auto) 0.1 Nucleated RBC % (a uto) 0 Nucleated RBCs # 0.0 Sodium 139 Potassium 3.7 Chloride 106 Carbon Dioxide 23 Anion Gap 13.7 BUN 17 Creatinine 0.9 GFR Calculation Not Reportable Glucose 144 H POC Glucose Calculated Osmolal ity 287 Calcium 9.1 Magnesium Total Bilirubin AST ALT Alkaline Phosphata se Troponin T Baselin e Troponin T 120 Min [place] Delta Troponin T Troponin T Hi Sens 6Hr 44.88 H Troponin T Hi Sens 6Hr Delta 1.88 Total Protein Albumin Globulin TSH Urine Color Urine Appearance Urine pH Ur Specific Gravit y Urine Protein Urine Glucose (UA) Urine Ketones Urine Blood Urine Nitrate Urine Bilirubin Urine Urobilinogen Ur Leukocyte Mary ase Urine RBC Urine WBC Ur Squamous Epith Cells Amorphous Sediment Urine Bacteria Hyaline Casts Other Casts Urine Mucus Digoxin 05/07/20 05/07/20 05/07/20 21:24 17:39 17:39 WBC RBC Hgb Hct MCV MCH MCHC RDW Plt Count MPV Neut % (Auto) Lymph % (Auto) Kings % (Auto) Eos % (Auto) Baso % (Auto) Neut # (Auto) Lymph # (Auto) Kings # (Auto) Eos # (Auto) Baso # (Auto) Nucleated RBC % (a uto) Nucleated RBCs # Sodium Potassium Chloride Carbon Dioxide Anion Gap BUN Creatinine GFR Calculation Glucose POC Glucose 254 Calculated Osmolal ity Calcium Magnesium 1.7 Total Bilirubin AST ALT Alkaline Phosphata se Troponin T Baselin e Troponin T 120 Min [place] 46.36 H Delta Troponin T 3.36 Troponin T Hi Sens 6Hr Troponin T Hi Sens 6Hr Delta Total Protein Albumin Globulin TSH 0.68 Urine Color Urine Appearance Urine pH Ur Specific Gravit y Urine Protein Urine Glucose (UA) Urine Ketones Urine Blood Urine Nitrate Urine Bilirubin Urine Urobilinogen Ur Leukocyte Mary ase Urine RBC Urine WBC Ur Squamous Epith Cells Amorphous Sediment Urine Bacteria Hyaline Casts Other Casts Urine Mucus Digoxin 05/07/20 05/07/20 05/07/20 15:45 15:45 15:45 WBC 14.3 H RBC 4.69 Hgb 14.4 Hct 42.9 MCV 91.5 MCH 30.7 MCHC 33.6 RDW 12.9 Plt Count 291 MPV 11.3 H Neut % (Auto) 67.2 Lymph % (Auto) 22.8 Kings % (Auto) 6.6 Eos % (Auto) 2.2 Baso % (Auto) 0.9 Neut # (Auto) 9.62 H Lymph # (Auto) 3.3 Kings # (Auto) 1.0 H Eos # (Auto) 0.3 Baso # (Auto) 0.1 Nucleated RBC % (a uto) 0 Nucleated RBCs # 0.0 Sodium 135 L Potassium 4.5 Chloride 98 Carbon Dioxide 22 Anion Gap 19.5 H BUN 17 Creatinine 1.0 GFR Calculation Not Reportable Glucose 384 H POC Glucose Calculated Osmolal ity 292 Calcium 9.7 Magnesium Total Bilirubin 0.4 AST 37 ALT 32 Alkaline Phosphata se 55 Troponin T Baselin e 43 H Troponin T 120 Min [place] Delta Troponin T Troponin T Hi Sens 6Hr Troponin T Hi Sens 6Hr Delta Total Protein 6.2 L Albumin 4.2 Globulin 2.0 TSH Urine Color Urine Appearance Urine pH Ur Specific Gravit y Urine Protein Urine Glucose (UA) Urine Ketones Urine Blood Urine Nitrate Urine Bilirubin Urine Urobilinogen Ur Leukocyte Mary ase Urine RBC Urine WBC Ur Squamous Epith Cells Amorphous Sediment Urine Bacteria Hyaline Casts Other Casts Urine Mucus Digoxin 1.2 Vitals: Last Vital Signs Temp 98.1 F 05/08/20 11:25 Pulse 65 05/08/20 11:25 Resp 16 05/08/20 11:25 BP 111/76 05/08/20 11:25 Pulse Ox 93 05/08/20 11:25 Discharge Plan Discharge Patient Disposition: Home Condition: Stable Prescriptions: Continued omega-3 fatty acids [Fish Oil Concentrate] 1,000 mg capsule 1,000 mg PO BID RF: 0 insulin aspart U-100 [Novolog Flexpen U-100 Insulin] 100 unit/mL (3 mL) insulin pen See Rx Instructions SUBCUT TID RF: 0 metformin 500 mg tablet 1,000 mg PO BID RF: 0 digoxin 250 mcg (0.25 mg) tablet 250 mcg PO DAILY RF: 0 Lantus U-100 Insulin 100 unit/mL solution 100 unit SUBCUT BID RF: 0 cholecalciferol (vitamin D3) [Vitamin D3] 25 mcg (1,000 unit) capsule 3,000 unit PO DAILY RF: 0 Xarelto 20 mg tablet 20 mg PO DAILY RF: 0 sotalol 160 mg Tablet 80 mg PO BID RF: 0 lisinopril 20 mg Tablet 10 mg PO DAILY RF: 0 gabapentin 800 mg Tablet 800 mg PO TID RF: 0 benzonatate 100 mg Capsule 100 mg PO TID PRN (Reason: Cough) RF: 0 ibuprofen 200 mg Tablet 600 mg PO PRN RF: 0 Lasix 20 mg Tablet 20 mg PO QAM RF: 0 ProAir HFA 90 mcg/actuation Hfa Aerosol Inhaler 2 puff INHALATION QID PRN (Reason: Shortness Of Breath) RF: 0 Flonase Allergy Relief 50 mcg/actuation [place],Suspension 2 spray INTRANASAL DAILY PRN (Reason: unknown) RF: 0 Crestor 40 mg Tablet 20 mg PO QPM RF: 0 Cinnamon 500 mg Capsule 1,000 mg PO BID RF: 0 lidocaine 5 % ointment See Rx Instructions .ROUTE .COMPLEX RF: 0 Pain Relieving (m-salic-men) 15-1 % cream See Rx Instructions .ROUTE .COMPLEX RF: 0 celecoxib 200 mg capsule 200 mg PO BID Qty: 20 RF: 0 Discharge Orders: Discharge Order (Routine); Ordered 05/08/20 Ordered By: Suzi Coats Referrals: Poli Klein MD [Physician] - 1-3 days [facility] [Primary Care Provider] - Discharge Diet: Usual diet Discharge Activity: Resume usual activity Discharge Attestations Time Spent in Discharge Care*: less than 30 min Quality Metrics Clinical Quality Measures During this hospital stay, did patient experience: None Coding Level of Care Code 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
--- NOTE | 2020-05-08 12:28 | ECG_ITS ---
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 Measurements Intervals [place] Rate: 69 P: 90 [place]: 220 QRS: 77 QRSD: 136 T: 263 QT: 367 QTc: 393 Interpretive Statements SINUS RHYTHM WITH FIRST DEGREE AV BLOCK RIGHT BUNDLE BRANCH BLOCK MODERATE T-WAVE ABNORMALITY, CONSIDER LATERAL ISCHEMIA Compared to ECG 05/07/2020 23:36:08 First degree AV block now present Right bundle-branch block now present T-wave abnormality now present Possible ischemia now present Electronically Signed On 05-08-2020 12:45:41 CDT by June Hernández M.D. [email or web address] specialty hospital [id number]
--- NOTE | 2020-05-08 15:38 | PC.NURSE ---
1530 Patient discharged home at this time. discharge instructions given and explained patient verbalized understanding. discussed all follow up appointments and if symptoms returned what to do. patient verbalized understanding. IV dc cath intact min bleeding noted dressing applied. Patient assisted to wheel chair and accompanied to private vehicle drov by daughter; all belongings and discharge instructions in hands.
--- NOTE | 2020-05-08 21:37 | USCV_ITS ---
Raphael Deal Age: 70 Gender: M : 1950 Exam Date: 05/08/2020 05:58 Ordering Phys: Dev Moreno MD Technologist: Dewey Michael Exam Location: [facility] [place] Indication: afib BP: 140 / 74 HR: 63 Rhythm: Sinus Technical Quality: Fair MEASUREMENTS (Male / Female) Normal Values 2D ECHO LV Diastolic Diameter PLAX 5.6 cm 4.2 - 5.9 / 3.9 - 5.3 cm LV Systolic Diameter PLAX 5.2 cm IVS Diastolic Thickness 1.1 cm 0.6 - 1.0 / 0.6 - 0.9 cm IVS Systolic Thickness 1.8 cm LVPW Diastolic Thickness 1.1 cm 0.6 - 1.0 / 0.6 - 0.9 cm LVPW Systolic Thickness 1.6 cm LVOT Diameter 2.0 cm LV Ejection Fraction 2D Teich 17.1 % LV Ejection Fraction MOD 2C 68.2 % LV Ejection Fraction 2C AL 68.0 % LA Diameter 4.6 cm LA Width 4.2 cm LA Height 5.4 cm RA Width 4.8 cm RA Height 5.3 cm Aorta at Sinotubular Diameter 1.3 cm M-MODE LV Diastolic Diameter MM 5.7 cm 4.2 - 5.9 / 3.9 - 5.3 cm LV Systolic Diameter MM 3.8 cm LV Ejection Fraction MM Teich 60.1 % IVS Diastolic Thickness MM 1.2 cm 0.6 - 1.0 / 0.6 - 0.9 cm IVS Systolic Thickness MM 1.8 cm LVPW Diastolic Thickness MM 1.4 cm 0.6 - 1.0 / 0.6 - 0.9 cm LVPW Systolic Thickness MM 2.2 cm RV Diastolic Diameter MM 1.4 cm Aortic Annulus Diameter 4.2 cm LA Ao Ratio MM 1.1 MV E Point Septal Separation 1.0 cm DOPPLER AV Peak Velocity 155.0 cm/s LVOT Peak Velocity 113.0 cm/s AV Area Cont Eq vti 2.1 cm squared AV Area Cont Eq pk 2.4 cm squared MV Area PHT 2.4 cm squared Mitral E to A Ratio 0.8 MV E' Velocity 8.0 cm/s Mitral E to MV E' Ratio 7.5 Mitral E to LV E' Lateral Ratio 8.1 Mitral E to LV E' Septal Ratio 7.1 TR Peak Velocity 131.0 cm/s TR Peak Gradient 6.9 mmHg TV Peak E Velocity 98.0 cm/s Right Atrial Pressure 3.0 mmHg Pulmonary Artery Systolic Pressu 9.9 mmHg PV Peak Velocity 100.0 cm/s FINDINGS Left Ventricle Normal left ventricular size, systolic function and wall thickness, with no regional wall motion abnormalities. Normal left ventricular wall thickness. Normal diastolic filling pattern. Right Ventricle The right ventricle is normal in size and function. Right Atrium The right atrium is normal in size. Left Atrium The left atrium is normal in size. Mitral Valve Structurally normal mitral valve without significant stenosis or prolapse. There is no mitral regurgitation. Aortic Valve Structurally normal aortic valve without significant sclerosis or stenosis. There is trace aortic regurgitation. Tricuspid Valve Structurally normal tricuspid valve without significant stenosis or regurgitation. There is insufficient TR jet to measure RVSP. Pulmonic Valve Structurally normal pulmonic valve without significant stenosis. There is no pulmonic regurgitation. Pericardium Normal pericardium without effusion. Aorta Normal ascending aorta dimension. CONCLUSIONS Normal LV systolic function with EF of 60- 65% Diastolic function is normal Aleks Narvaez MD (Electronically Signed) Final Date: 08 May 2020 11:25 S
== END 2020-05-08 15:30 | disposition home or self-care (01) ==
LOC: ER 19:48 → CSU 20:25
PROVIDERS: Family Medicine; Admitting Provider Internal Medicine; Visit Provider Student in an Organized Health Care Education/Training Program
DX: R07.89 Other chest pain (principal); I48.91 Unspecified atrial fibrillation; E13.40 Other specified diabetes mellitus with diabetic neuropathy, unspecified; I10 Essential (primary) hypertension; G47.33 Obstructive sleep apnea (adult) (pediatric); M54.5 Low back pain; G89.29 Other chronic pain; D72.829 Elevated white blood cell count, unspecified; R79.89 Other specified abnormal findings of blood chemistry; Z79.4 Long term (current) use of insulin; Z79.01 Long term (current) use of anticoagulants
CPT/HCPCS: 12345; 36415; 36416; 71045; 78452; 80048; 80053; 80162; 81001; 82962; 83735; 84443; 84484; 85025; 93005; 93017; 93306; 96372; 96374; 96376; 99283; 99285; A9500; G0378; J1815 ×2; J2785; J3490; J7030

== ENCOUNTER 2020-07-20 14:21 | Emergency (ER) | payer OTHER, MEDICARE, SELFPAY ==
[2020-07-20 14:21] VITALS: BP 173/98; PULSE 65; PULSE 74; RESP 20; O2SAT 95
[2020-07-20 14:50] VITALS: BP 176/96; PULSE 73; RESP 18; TEMP 36.5; O2SAT 97; BMI 36.3
[2020-07-20 16:11] VITALS: BP 173/98; PULSE 73; RESP 18; O2SAT 95
--- NOTE | 2020-07-20 16:38 | CTR_ITS ---
PROCEDURE INFORMATION: Exam: CT Lumbar Spine Without Contrast Exam date and time: 07/20/2020 4:47 PM Age: 70 years old Clinical indication: Low back pain and other: Leg pain; Patient HX: No known trauma, HX of prostate CA, PT states early this am RT leg became numb/tingling pain has increased since initially began; Additional info: Right leg heaviness TECHNIQUE: Imaging protocol: Computed tomography images of the lumbar spine without contrast. Radiation optimization: All CT scans at this facility use at least one of these dose optimization techniques: automated exposure control; mA and/or kV adjustment per patient size (includes targeted exams where dose is matched to clinical indication); or iterative reconstruction. COMPARISON: [place] [id number] 04/01/2018 10:10 AM RADIATION DOSE METRICS: Total DLP (mGy-cm): 2286.54 FINDINGS: Vertebrae: No fracture is identified. L1-L2: Prominent anterior osteophytes mild degenerative changes in the facet joints without central canal or foraminal stenosis. L2-L3: There is severe disc degeneration with vacuum disc phenomenon and disc space narrowing and cystic degenerative change and sclerosis of the adjacent endplates with approximately 5 mm of retrolisthesis of L2 on L3. There is hypertrophic degenerative change in the facet joints with medial spur formation, hypertrophy of ligamentum flavum and mild central canal stenosis with subarticular and foraminal narrowing on the right. The degenerative changes have progressed from the prior examination. L3-L4: Posterior disc bulging and disc osteophyte complex not significantly changed. There are degenerative changes in the facet joints. There is hypertrophy of ligamentum flavum which is increased from the previous examination and causes mild central canal stenosis narrowing the sagittal diameter canal to approximately 9 mm. L4-L5: There is posterior disc bulging and hypertrophic degenerative changes in the facet joints with medial spur formation and hypertrophy of ligamentum flavum causing moderate central canal stenosis narrowing the sagittal diameter canal to approximately 8 mm. There is foraminal narrowing on both sides more on the right than on the left. L5-S1: Mild posterior but disc bulging. Degenerative changes in the facets bilaterally with mild foraminal narrowing bilaterally. Sacrum/coccyx: Degenerative changes in the sacroiliac joints is unchanged. Vasculature: Atherosclerotic changes are seen in the abdominal aorta without evidence of aneurysm. Soft tissues: Unremarkable. CT/CT lumbar spine wo con* [id number] IMPRESSION: Degenerative changes in the lumbar spine as described. Findings have progressed compared with 03/24/2018 especially the L2-L3 level. Radiation Dose CTDIVOL = (mGy): DLP = 2286.54 (mGy-cm)
--- NOTE | 2020-07-20 16:47 | ED_ITS ---
Documented by User: WALT Beatty 07/21/20 07:02 HPI - Extremity Problem General: Chief complaint: Extremity Problem,Nontraumatic Stated complaint: LEG NUMBNESS AND TINGLING Time Seen by Provider: 07/20/20 16:31 History of Present Illness: HPI Narrative: Patient is a chronic back pain patient just recently had a physical therapy couple days ago had some neck work done I said that his low back is bothering him so I am having heaviness in his right leg it is hard to move it he said is weak and pain goes down the leg not has some pain going up to the upper aspect of the left leg. Does have good sensation he feels that the physical therapy had done the other day for shoulder and when they stretch his neck possibly causes to happen in his leg [facility] Nerve root cauterized MD Complaint: extremity pain Pain Consistency: constant Location: right and lower extremity Quality: aching Radiation: distal Relieving factors: immobilization Exacerbating factors: range of motion and weight bearing Associated symptoms: Reports no associated symptoms; Deny chest pain, fever(s) or rash Review of Systems Const: Denies: fever(s), chills or body aches Eyes: Denies: change in vision or blurry vision ENMT: Denies: throat pain or nasal congestion Card: Denies: chest pain or dyspnea on exertion Resp: Denies: dyspnea, productive cough or non-productive cough GI: Denies: abdominal pain, nausea or vomiting : Denies: difficulty urinating Musc: Reports: extremity pain and limited range of motion Skin/Breast: Denies: rash Neuro: Denies: headache(s) Psych: Denies: anxiety or depression Felix/Lymph: Denies: easy bruising PFSH ED PFSH: Medical History (Updated 07/20/20 @ 17:56 by WALT Rogers) Anticoagulation adequate with anticoagulant therapy Xarelto Atrial fibrillation Chronic anticoagulation Diabetes 1.5, managed as type 2 Diabetic neuropathy H/O prostate cancer HTN (hypertension) Low back pain Obstructive sleep apnea Refuses CPAP Surgical History History of pilonidal cyst S/P appendectomy S/P tonsillectomy Family History Grandmother Cancer MATERNAL Diabetes Grandfather Hypertension MATERNAL Diabetes Social History Smoking and tobacco status: never smoked Alcohol intake: former Household members: children Marital status: service: Yes branch: [employer] 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 Exam Const: COMMON NORMALS: no acute distress, average body habitus and patient oriented x3 HENMT: COMMON NORMALS: normocephalic HEAD & SCALP: normal to inspection and normocephalic FACE & SINUS: normal facial exam Eye: COMMON NORMALS: conjunctivae normal GENERAL EYE: appearance normal, both eyes and all related structures CONJUNCTIVA: Yes conjunctivae normal Neck/C-Spine: COMMON NORMALS: no JVD Chest: COMMONS NORMALS: normal inspection of the chest Resp: COMMON NORMALS: normal respiratory effort and clear to auscultation bilaterally AUSCULTATION: clear to auscultation bilaterally Cardio: COMMON NORMALS: no JVD, regular rate and regular rhythm RATE: regular rate RHYTHM: regular rhythm GI: COMMON NORMALS: Normal to inspection, nondistended, normoactive bowel sounds present Extremity: COMMON NORMALS: normal to inspection OTHER: Patient has good sensation to the right lower extremity is able to move it some able to pull push toes without any difficulty but has some problem lifting the leg says it hurts up through his hip across his abdomen into the left upper thigh with any movement straight leg leak positive at 30 degrees left less than that on the right is able stand but does have weakness in that right leg. Neuro: COMMON NORMALS: patient oriented x3 Course Vital Signs: Vital signs: Vital Signs Temperature 97.8 F 07/20/20 18:23 Pulse Rate 67 07/20/20 18:23 Respiratory Rate 20 H 07/20/20 18:23 Blood Pressure 181/98 07/20/20 18:23 Pulse Oximetry 95 07/20/20 18:23 Discharge Plan Discharge Patient Disposition: Home Clinical Impression: Intervertebral disc disease, Lumbar radicular pain Condition: Stable Prescriptions: New hydrocodone-acetaminophen 7.5-325 mg tablet 1 tab PO Q8H PRN (Reason: pain) Qty: 14 RF: 0 No Action omega-3 fatty acids [Fish Oil Concentrate] 1,000 mg capsule 1,000 mg PO BID RF: 0 insulin aspart U-100 [Novolog Flexpen U-100 Insulin] 100 unit/mL (3 mL) insulin pen See Rx Instructions SUBCUT TID RF: 0 metformin 500 mg tablet 1,000 mg PO BID RF: 0 digoxin 250 mcg (0.25 mg) tablet 250 mcg PO DAILY RF: 0 Lantus U-100 Insulin 100 unit/mL solution 100 unit SUBCUT BID RF: 0 cholecalciferol (vitamin D3) [Vitamin D3] 25 mcg (1,000 unit) capsule 3,000 unit PO DAILY RF: 0 Xarelto 20 mg tablet 20 mg PO DAILY RF: 0 cyclobenzaprine 10 mg tablet 10 mg PO TID PRN (Reason: muscle spasm) Qty: 8 RF: 0 sotalol 160 mg Tablet 80 mg PO BID RF: 0 lisinopril 20 mg Tablet 10 mg PO DAILY RF: 0 gabapentin 800 mg Tablet 800 mg PO TID RF: 0 benzonatate 100 mg Capsule 100 mg PO TID PRN (Reason: Cough) RF: 0 ibuprofen 200 mg Tablet 600 mg PO PRN RF: 0 Lasix 20 mg Tablet 20 mg PO QAM RF: 0 ProAir HFA 90 mcg/actuation Hfa Aerosol Inhaler 2 puff INHALATION QID PRN (Reason: Shortness Of Breath) RF: 0 Flonase Allergy Relief 50 mcg/actuation [place],Suspension 2 spray INTRANASAL DAILY PRN (Reason: unknown) RF: 0 Crestor 40 mg Tablet 20 mg PO QPM RF: 0 Cinnamon 500 mg Capsule 1,000 mg PO BID RF: 0 lidocaine 5 % ointment See Rx Instructions .ROUTE .COMPLEX RF: 0 Pain Relieving (m-salic-men) 15-1 % cream See Rx Instructions .ROUTE .COMPLEX RF: 0 celecoxib 200 mg capsule 200 mg PO BID Qty: 20 RF: 0 Discharge Orders: Discharge Order (Routine); Ordered 07/20/20 Ordered By: Jonnathan Mart Referrals: Trisha Urena MD [Primary Care Provider] - Discharge Diet: Usual diet Discharge Activity: Increase activity as tolerated Patient Instructions: Lumbar Radiculopathy (ED) Activity Restrictions/Additional Instructions: Home and rest. Activity as tolerated. Gentle stretching and range of motion exercises. Ambulation and walking for discomfort. Continue with routine medications. Follow-up with primary care for further treatment and referral to neurology for further care. Return to the emergency department for new concerns. Discharge Date/Time: 07/20/20 18:30 Coding Level of Care Code ED Refrigerator Car Icer for Chg Fwd Exam Comprehensive Documented by User: WALT Rogers 07/20/20 18:00 HPI - Extremity Problem General: Chief complaint: Extremity Problem,Nontraumatic Stated complaint: LEG NUMBNESS AND TINGLING Time Seen by Provider: 07/20/20 16:31 [facility] ED PFSH: Medical History (Updated 07/20/20 @ 17:56 by WALT Rogers) Anticoagulation adequate with anticoagulant therapy Xarelto Atrial fibrillation Chronic anticoagulation Diabetes 1.5, managed as type 2 Diabetic neuropathy H/O prostate cancer HTN (hypertension) Low back pain Obstructive sleep apnea Refuses CPAP Surgical History History of pilonidal cyst S/P appendectomy S/P tonsillectomy Family History Grandmother Cancer MATERNAL Diabetes Grandfather Hypertension MATERNAL Diabetes Social History Smoking and tobacco status: never smoked Alcohol intake: former Household members: children Marital status: service: Yes branch: [employer] 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 wjw Vital Signs: Vital signs: Vital Signs Temperature 97.8 F 07/20/20 18:23 Pulse Rate 67 07/20/20 18:23 Respiratory Rate 20 H 07/20/20 18:23 Blood Pressure 181/98 07/20/20 18:23 Pulse Oximetry 95 07/20/20 18:23 MDM - Extremity (Nontraumatic) MDM Narrative: Medical decision making narrative: CT scan results noted some increase degeneration of the lumbar spine as compared to previous exam and 2018. No significant spinal cord stenosis is noted. Reviewed exam with patient with recommendations for treatment and follow-up with primary care/neurologist for further care. Patient reported understanding and agreed to plan. Discharge Plan Discharge Patient Disposition: Home Clinical Impression: Intervertebral disc disease, Lumbar radicular pain Condition: Stable Prescriptions: New hydrocodone-acetaminophen 7.5-325 mg tablet 1 tab PO Q8H PRN (Reason: pain) Qty: 14 RF: 0 No Action omega-3 fatty acids [Fish Oil Concentrate] 1,000 mg capsule 1,000 mg PO BID RF: 0 insulin aspart U-100 [Novolog Flexpen U-100 Insulin] 100 unit/mL (3 mL) insulin pen See Rx Instructions SUBCUT TID RF: 0 metformin 500 mg tablet 1,000 mg PO BID RF: 0 digoxin 250 mcg (0.25 mg) tablet 250 mcg PO DAILY RF: 0 Lantus U-100 Insulin 100 unit/mL solution 100 unit SUBCUT BID RF: 0 cholecalciferol (vitamin D3) [Vitamin D3] 25 mcg (1,000 unit) capsule 3,000 unit PO DAILY RF: 0 Xarelto 20 mg tablet 20 mg PO DAILY RF: 0 cyclobenzaprine 10 mg tablet 10 mg PO TID PRN (Reason: muscle spasm) Qty: 8 RF: 0 sotalol 160 mg Tablet 80 mg PO BID RF: 0 lisinopril 20 mg Tablet 10 mg PO DAILY RF: 0 gabapentin 800 mg Tablet 800 mg PO TID RF: 0 benzonatate 100 mg Capsule 100 mg PO TID PRN (Reason: Cough) RF: 0 ibuprofen 200 mg Tablet 600 mg PO PRN RF: 0 Lasix 20 mg Tablet 20 mg PO QAM RF: 0 ProAir HFA 90 mcg/actuation Hfa Aerosol Inhaler 2 puff INHALATION QID PRN (Reason: Shortness Of Breath) RF: 0 Flonase Allergy Relief 50 mcg/actuation [place],Suspension 2 spray INTRANASAL DAILY PRN (Reason: unknown) RF: 0 Crestor 40 mg Tablet 20 mg PO QPM RF: 0 Cinnamon 500 mg Capsule 1,000 mg PO BID RF: 0 lidocaine 5 % ointment See Rx Instructions .ROUTE .COMPLEX RF: 0 Pain Relieving (m-salic-men) 15-1 % cream See Rx Instructions .ROUTE .COMPLEX RF: 0 celecoxib 200 mg capsule 200 mg PO BID Qty: 20 RF: 0 Discharge Orders: Discharge Order (Routine); Ordered 07/20/20 Ordered By: Jonnathan Mart Referrals: Trisha Urena MD [Primary Care Provider] - Discharge Diet: Usual diet Discharge Activity: Increase activity as tolerated Patient Instructions: Lumbar Radiculopathy (ED) Activity Restrictions/Additional Instructions: Home and rest. Activity as tolerated. Gentle stretching and range of motion exercises. Ambulation and walking for discomfort. Continue with routine medications. Follow-up with primary care for further treatment and referral to neurology for further care. Return to the emergency department for new concerns. Discharge Date/Time: 07/20/20 18:30 Coding Level of Care Code ED Refrigerator Car Icer for Chg Fwd Exam Comprehensive
[2020-07-20] MEDS: methylPREDNISolone (DEPO) 80 MG/ML INJ 1 mL IM (17:04)
[2020-07-20 17:06] VITALS: BP 164/90; PULSE 74; RESP 18; O2SAT 96
[2020-07-20] MEDS: HYDROcodone-acetaminophen 10-325 mg Tablet 1 TAB PO (18:21)
[2020-07-20 18:23] VITALS: BP 181/98; PULSE 67; RESP 20; TEMP 36.6; O2SAT 95
== END 2020-07-20 18:30 | disposition home or self-care (01) ==
PROVIDERS: Emergency Provider Nurse Practitioner Family; PCP Family Medicine
DX: M51.16 Intervertebral disc disorders with radiculopathy, lumbar region (principal); Z79.4 Long term (current) use of insulin; I48.91 Unspecified atrial fibrillation; E13.40 Other specified diabetes mellitus with diabetic neuropathy, unspecified; Z85.46 Personal history of malignant neoplasm of prostate; I10 Essential (primary) hypertension
CPT/HCPCS: 12345; 72131; 96372; 99281; 99283; J1040

== ENCOUNTER 2020-09-24 13:29 | Emergency (ER) | payer OTHER, MEDICARE, SELFPAY ==
[2020-09-24 13:50] VITALS: BP 147/90; PULSE 77; RESP 14; TEMP 36.5; O2SAT 95; BMI 33.4
--- NOTE | 2020-09-24 13:52 | ECG_ITS ---
[facility] Test Date: 2020-09-24 Pat Name: Raphael Deal Department: Room: Gender: Male Ehs Specialist: tyler SAEEDB: 1950 Requested By: Fermin Chavez Order Number: [id number] Nilay MD: June Hernández M.D. Measurements Intervals [place] Rate: 73 P: 16 MI: 172 QRS: 87 QRSD: 130 T: -35 QT: 399 QTc: 442 Interpretive Statements SINUS RHYTHM WITH OCCASIONAL ECTOPIC PREMATURE COMPLEXES RIGHT BUNDLE BRANCH BLOCK [120+ ms QRS DURATION, UPRIGHT V1, 40+ ms S IN I/aVL/V4/V5/V6] Compared to ECG 05/08/2020 12:37:35 First degree AV block no longer present T-wave abnormality no longer present Possible ischemia no longer present Electronically Signed On 09-24-2020 20:23:28 POLICE OFFICER by June Hernández M.D. [id number]
--- NOTE | 2020-09-24 18:58 | CTR_ITS ---
PROCEDURE INFORMATION: Exam: CT Lumbar Spine Without Contrast Exam date and time: 09/24/2020 7:08 PM Age: 70 years old Clinical indication: Patient HX: Le weakness x 2 months; Additional info: Pain TECHNIQUE: Imaging protocol: Computed tomography images of the lumbar spine without contrast. Total images: 479 Radiation optimization: All CT scans at this facility use at least one of these dose optimization techniques: automated exposure control; mA and/or kV adjustment per patient size (includes targeted exams where dose is matched to clinical indication); or iterative reconstruction. COMPARISON: CT lumbar spine wo con* [id number] 07/20/2020 4:54 PM RADIATION DOSE METRICS: Total DLP (mGy-cm): 2745.72 FINDINGS: Vertebrae: No visible acute osseous abnormality. Facet arthrosis. 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 Discs/Spinal canal/Neural foramina: Advanced degenerative disc disease with disc space height loss and vacuum disc phenomenon L2/L3. Mild central canal narrowing primarily due to ligamentum flavum hypertrophy and facet arthrosis. Mild central canal stenosis L3/L4 secondary to a posterior disc bulge osteophyte complex aggravated by ligamentum flavum hypertrophy and facet arthrosis. Marked central canal stenosis L4/L5 primarily the resulted of ligamentum flavum hypertrophy aggravated by a mild posterior disc bulge osteophyte complex with a left paramedian to left lateral component. Kidneys and ureters: Nonobstructing calyceal nephrolithiasis focus equator left kidney under 3 mm. Soft tissues: Unremarkable for age. CT/CT lumbar spine wo con* [id number] IMPRESSION: No appreciable significant interval change since last evaluation of 07/20/2020. Radiation Dose CTDIVOL = (mGy): DLP = 2745.72 (mGy-cm)
--- NOTE | 2020-09-24 19:19 | ED_ITS ---
HPI - Extremity Problem General: Chief complaint: Extremity Problem,Nontraumatic Stated complaint: Weakness/Numbness in Legs Time Seen by Provider: 09/24/20 18:50 Source: patient Mode of arrival: ambulatory Limitations: no limitations History of Present Illness: HPI Narrative: 70-year-old male states that he had a fall months ago and has been having bilateral lower extremity tingling paresthesias since then. He states that it seems to come and go but got much worse today. He states earlier that he felt like his legs were heavy. He denies any difficulty walking he walked to the bathroom and back in the hallway with no problems. He denies any bowel or bladder incontinence. He denies any pain currently. He states he just has tingling down both legs. Associated symptoms: Deny chest pain, fever(s) or rash Review of Systems Const: Denies: fever(s), chills, body aches or change in appetite Eyes: Denies: blurry vision or eye discomfort ENMT: Denies: throat pain or dental pain Card: Denies: chest pain Resp: Denies: dyspnea GI: Denies: abdominal pain, nausea, vomiting or diarrhea : Denies: dysuria Musc: Denies: neck pain or back pain Skin/Breast: Denies: rash Neuro: Reports: numbness in extremities Psych: Denies: depression Felix/Lymph: Denies: easy bruising All/Imm: Denies: urticaria PFSH ED PFSH: Medical History (Updated 09/24/20 @ 20:44 by Luis Enrique Nolan MD) Anticoagulation adequate with anticoagulant therapy Xarelto Atrial fibrillation Chronic anticoagulation Diabetes 1.5, managed as type 2 Diabetic neuropathy H/O prostate cancer HTN (hypertension) Low back pain Obstructive sleep apnea Refuses CPAP Surgical History History of pilonidal cyst S/P appendectomy S/P tonsillectomy Family History Grandmother Cancer MATERNAL Diabetes Grandfather Hypertension MATERNAL Diabetes Social History Smoking and tobacco status: never smoked Alcohol intake: former Household members: children Marital status: service: Yes branch: [employer] 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 Exam Const: COMMON NORMALS: no acute distress, patient oriented x3 and healthy appearing HENMT: COMMON NORMALS: normocephalic and atraumatic HEAD & SCALP: normocephalic and atraumatic Eye: COMMON NORMALS: Equal, round and reactive pupils present and EOMs intact bilaterally PUPIL: Yes Equal, round and reactive pupils present Neck/C-Spine: COMMON NORMALS: full ROM and supple Chest: COMMONS NORMALS: normal inspection of the chest and normal palpation of entire chest wall Resp: COMMON NORMALS: normal respiratory effort, No retractions, No use of accessory muscles and clear to auscultation bilaterally AUSCULTATION: clear to auscultation bilaterally Cardio: COMMON NORMALS: regular rate, regular rhythm and No murmurs present (Cardio) RATE: regular rate RHYTHM: regular rhythm GI: COMMON NORMALS: Normal to inspection, nondistended, normoactive bowel sounds present, Soft to palpation, non-tender and no masses PALPATION: Yes Soft to palpation Back/Pelvis: OTHER: No midline tenderness on exam. Patient has no sensation loss but does states he just feels tingling in bilateral legs. No saddle anesthesia. Lower extremity strength is 5 out of 5. Extremity: COMMON NORMALS: normal to inspection and full ROM Neuro: COMMON NORMALS: patient oriented x3, moves all extremities and no focal motor deficits Psych: COMMON NORMALS: mental status grossly normal, Normal thought process present and cooperative THOUGHT PROCESS: Normal thought process present Skin: COMMON NORMALS: no rashes or lesions noted and no wounds GENERAL SKIN EXAM: no rashes or lesions noted Course Vital Signs: Vital signs: Vital Signs Temperature 97.7 F 09/24/20 13:50 Pulse Rate 77 09/24/20 13:50 Respiratory Rate 14 09/24/20 13:50 Blood Pressure 147/90 09/24/20 13:50 Pulse Oximetry 95 09/24/20 13:50 MDM - Extremity (Nontraumatic) MDM Narrative: Medical decision making narrative: Patient presents here with paresthesias of both legs that has been chronic and going on for months. CT scan here is normal his neuro exam is normal as well. He has no signs of epidural abscess or cord compression. He is to follow-up with neurology as scheduled. He is to return if worsening. He understands agrees to plan. Lab Data: Labs: Lab Results 09/24/20 09/24/20 Range/Units 20:20 20:20 WBC 10.7 H (4.0-10.0) 10^3/ uL RBC 4.31 (4.1-5.3) 10^6/u L Hgb 13.6 (11.7-16.6) g/dL Hct 43.7 (42.0-52.0) % MCV 101.4 H (80-94) fL MCH 31.6 (28.0-34.0) pg MCHC 31.1 (30.0-36.0) g/dL RDW 14.6 (12.1-15.1) % Plt Count 271 (130-400) 10^3/c mm MPV 10.6 H (7.4-10.4) fL Neut % (Auto) 56.0 % Lymph % (Auto) 31.1 % [place] % (Auto) 7.3 % Eos % (Auto) 4.1 % Baso % (Auto) 0.9 % Neut # (Auto) 6.00 (1.8-7.7) 10^3/u L Lymph # (Auto) 3.3 (0.8-4.8) 10^3/u L [place] # (Auto) 0.8 (0.2-0.9) 10^3/u L Eos # (Auto) 0.4 (0.0-0.8) 10^3/u L Baso # (Auto) 0.1 (0.0-0.1) 10^3/u L Nucleated RBC % (a uto) 0 % Nucleated RBCs # 0.0 /100WBC Sodium 140 (136-145) mmol/L Potassium 4.0 (3.5-5.1) mmol/L Chloride 104 (98-107) mmol/L Carbon Dioxide 26 (22-29) mmol/L Anion Gap 14.0 (5-19) BUN 11 (8-23) mg/dL Creatinine 0.7 (0.7-1.2) mg/dL GFR Calculation Not Reportable Calcium 9.2 (8.5-10.5) mg/dL Total Bilirubin 0.4 (0.15-1.2) mg/dL AST 20 (0-40) U/L ALT 21 (0-41) U/L Alkaline Phosphata se 63 (40-130) IU/L Total Protein 6.7 (6.6-8.7) g/dL Albumin 3.9 (3.5-5.2) g/dL Globulin 2.8 (1.3-4.6) g/dL Imaging Data^: Other CT: Radiologist's impression: [address] [place] [address] CT Scan Report Signed Patient: Raphael Deal Unit #: [id number] : 1950 Acc t#:[id number] Age/Sex: 70 / M ADM Date: 09/24/20 Loc: ER Room/Bed: Attending Dr: Ordering Provider/Ordering MD: Luis Enrique Nolan MD Date of Service: 09/24/20 Procedure(s): CT lumbar spine wo con* [id number] Accession Number(s): [id number] Report Number: [id number] PROCEDURE INFORMATION: Exam: CT Lumbar Spine Without Contrast Exam date and time: 09/24/2020 7:08 PM Age: 70 years old Clinical indication: Patient HX: Le weakness x 2 months; Additional info: Pain TECHNIQUE: Imaging protocol: Computed tomography images of the lumbar spine without contrast. Total images: 479 Radiation optimization: All CT scans at this facility use at least one of these dose optimization techniques: automated exposure control; mA and/or kV adjustment per patient size (includes targeted exams where dose is matched to clinical indication); or iterative reconstruction. COMPARISON: CT lumbar spine wo con* [id number] 07/20/2020 4:54 PM RADIATION DOSE METRICS: Total DLP (mGy-cm): 2745.72 FINDINGS: Vertebrae: No visible acute osseous abnormality. Facet arthrosis. 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 Discs/Spinal canal/Neural foramina: Advanced degenerative disc disease with disc space height loss and vacuum disc phenomenon L2/L3. Mild central canal narrowing primarily due to ligamentum flavum hypertrophy and facet arthrosis. Mild central canal stenosis L3/L4 secondary to a posterior disc bulge osteophyte complex aggravated by ligamentum flavum hypertrophy and facet arthrosis. Marked central canal stenosis L4/L5 primarily the resulted of ligamentum flavum hypertrophy aggravated by a mild posterior disc bulge osteophyte complex with a left paramedian to left lateral component. Kidneys and ureters: Nonobstructing calyceal nephrolithiasis focus equator left kidney under 3 mm. Soft tissues: Unremarkable for age. CT/CT lumbar spine wo con* [id number] IMPRESSION: No appreciable significant interval change since last evaluation of 07/20/2020. Discharge Plan Discharge Patient Disposition: Home Clinical Impression: Bilateral leg paresthesia Condition: Stable Prescriptions: No Action omega-3 fatty acids [Fish Oil Concentrate] 1,000 mg capsule 1,000 mg PO BID RF: 0 insulin aspart U-100 [Novolog Flexpen U-100 Insulin] 100 unit/mL (3 mL) insulin pen See Rx Instructions SUBCUT TID RF: 0 metformin 500 mg tablet 1,000 mg PO BID RF: 0 digoxin 250 mcg (0.25 mg) tablet 250 mcg PO DAILY RF: 0 Lantus U-100 Insulin 100 unit/mL solution 100 unit SUBCUT BID RF: 0 cholecalciferol (vitamin D3) [Vitamin D3] 25 mcg (1,000 unit) capsule 3,000 unit PO DAILY RF: 0 Xarelto 20 mg tablet 20 mg PO DAILY RF: 0 cyclobenzaprine 10 mg tablet 10 mg PO TID PRN (Reason: muscle spasm) Qty: 8 RF: 0 sotalol 160 mg Tablet 80 mg PO BID RF: 0 lisinopril 20 mg Tablet 10 mg PO DAILY RF: 0 gabapentin 800 mg Tablet 800 mg PO TID RF: 0 benzonatate 100 mg Capsule 100 mg PO TID PRN (Reason: Cough) RF: 0 ibuprofen 200 mg Tablet 600 mg PO PRN RF: 0 Lasix 20 mg Tablet 20 mg PO QAM RF: 0 ProAir HFA 90 mcg/actuation Hfa Aerosol Inhaler 2 puff INHALATION QID PRN (Reason: Shortness Of Breath) RF: 0 Flonase Allergy Relief 50 mcg/actuation [place],Suspension 2 spray INTRANASAL DAILY PRN (Reason: unknown) RF: 0 Crestor 40 mg Tablet 20 mg PO QPM RF: 0 Cinnamon 500 mg Capsule 1,000 mg PO BID RF: 0 lidocaine 5 % ointment See Rx Instructions .ROUTE .COMPLEX RF: 0 Pain Relieving (m-salic-men) 15-1 % cream See Rx Instructions .ROUTE .COMPLEX RF: 0 celecoxib 200 mg capsule 200 mg PO BID Qty: 20 RF: 0 hydrocodone-acetaminophen 7.5-325 mg tablet 1 tab PO Q8H PRN (Reason: pain) Qty: 14 RF: 0 Discharge Orders: Discharge ED (Routine); Ordered 09/24/20 Ordered By: Luis Enrique Nolan Referrals: Trisha Urena MD [Primary Care Provider] - 1-3 days Discharge Diet: Advance as tolerated Discharge Activity: Resume usual activity Patient Instructions: Paresthesia (ED) Coding Level of Care Code ED Process Safety Specialist for Chg Fwd Exam Comprehensive
[2020-09-24 20:28] LABS: Basophils # 0.1 10^3/uL (0.0-0.1); Basophils % 0.9 %; Eosinophils # 0.4 10^3/uL (0.0-0.8); Eosinophils % 4.1 %; Hematocrit 43.7 % (42.0-52.0); Hemoglobin 13.6 g/dL (11.7-16.6); Lymphocytes # 3.3 10^3/uL (0.8-4.8); Lymphocytes % 31.1 %; Mean Corpuscular HGB Conc 31.1 g/dL (30.0-36.0); Mean Corpuscular Hemoglobin 31.6 pg (28.0-34.0); Mean Corpuscular Volume 101.4 fL (80-94); Mean Platelet Volume 10.6 fL (7.4-10.4); Monocytes # 0.8 10^3/uL (0.2-0.9); Monocytes % 7.3 %; Nucleated Red Blood Cells % 0 %; Platelet Count 271 10^3/cmm (130-400); Red Blood Count 4.31 10^6/uL (4.1-5.3); Red Cell Distribution Width 14.6 % (12.1-15.1); White Blood Count 10.7 10^3/uL (4.0-10.0)
[2020-09-24 20:41] LABS: Alanine Aminotransferase 21 U/L (0-41); Albumin Level 3.9 g/dL (3.5-5.2); Alkaline Phosphatase 63 IU/L (40-130); Aspartate Amino Transferase 20 U/L (0-40); Blood Urea Nitrogen 11 mg/dL (8-23); Calcium 9.2 mg/dL (8.5-10.5); Carbon Dioxide 26 mmol/L (22-29); Chloride 104 mmol/L (98-107); Creatinine Clr Calc Pharmacy 96.9785; Globulin 2.8 g/dL (1.3-4.6); Glucose 265 mg/dL (65-115); Osmolality Calculated 299 mOsm/kg (285-295); Sodium 140 mmol/L (136-145); Total Bilirubin 0.4 mg/dL (0.15-1.2); Total Protein 6.7 g/dL (6.6-8.7)
[2020-09-24 21:02] VITALS: BP 191/90; PULSE 65; RESP 18; O2SAT 95
== END 2020-09-24 21:02 | disposition home or self-care (01) ==
PROVIDERS: Emergency Provider Emergency Medicine; PCP Family Medicine
DX: R20.2 Paresthesia of skin (principal); Z79.4 Long term (current) use of insulin; I48.91 Unspecified atrial fibrillation; E13.40 Other specified diabetes mellitus with diabetic neuropathy, unspecified; Z85.46 Personal history of malignant neoplasm of prostate; I10 Essential (primary) hypertension
CPT/HCPCS: 12345; 72131; 80053; 85025; 93005; 99282; 99283

== ENCOUNTER → 2020-12-04 09:06 | Outpatient (BNVA) | payer OTHER, SELFPAY | PROVIDERS: PCP Family Medicine; Referring Provider Family Medicine; Visit Provider Specialist | DX: M48.061 Spinal stenosis, lumbar region without neurogenic claudication (principal); M54.2 Cervicalgia; R20.0 Anesthesia of skin; R20.2 Paresthesia of skin; E11.40 Type 2 diabetes mellitus with diabetic neuropathy, unspecified; Z79.4 Long term (current) use of insulin | CPT/HCPCS: 99204 ==

== ENCOUNTER → 2021-01-15 12:34 | Outpatient (BNVA) | payer OTHER, SELFPAY | PROVIDERS: PCP Family Medicine; Visit Provider Psychiatry & Neurology Neurology | DX: R20.0 Anesthesia of skin (principal); E11.40 Type 2 diabetes mellitus with diabetic neuropathy, unspecified; Z79.4 Long term (current) use of insulin; Z79.01 Long term (current) use of anticoagulants | CPT/HCPCS: 95885; 95908 ==

== ENCOUNTER 2021-01-16 15:31 | Outpatient (CLI) | payer OTHER, SELFPAY ==
--- NOTE | 2021-01-16 16:00 | MR_ITS ---
WS: [id number] MRI CERVICAL SPINE NONCONTRAST HISTORY: M54.2 - Cervicalgia COMPARISON: None available. Technique: Multiplanar, multisequence noncontrast imaging of the cervical spine. Quality of examination is limited by motion and patient size. Straightening of the normal cervical lordosis. Advanced degenerative disc disease and osteophytosis t hroughout the cervical spine. Partial fusion at the C5-C6 disc level. Large bridging anterior osteoph yte at C3-4. There is no additional large bridging osteophyte beginning at C6-T1. No marrow edema or fracture. Increased signal in the cervical cord begins at the mid C6 level through C7-T1 disc. There is very mild narrowing of the foramen magnum. Moderate cerebral and cerebellar atrophy. C2-C3: Mild osteophytic ridging. No stenosis. C3-C4: Diffuse osteophytic ridging with very mild narrowing of the central canal and foramen. C4-C5: Diffuse osteophytic ridging and disc bulging. Mild central and bilateral foraminal stenosis pr edominantly due to osteophyte disease. C5-C6: Diffuse osteophytic ridging with mild posterior displacement of the LEFT thecal sac and LEFT e xiting nerve roots. There is a large bony ridge surrounding the disc resulting in moderate central an d mild bilateral foraminal stenosis. Slightly greater stenosis on the LEFT. C6-C7: Osteophytic ridging and facet arthritis. Mild central and bilateral foraminal stenosis. C7-T1: Mild bilateral foraminal stenosis due to facet and osteophyte disease. Paraspinal soft tissue are normal. MR/MR cervical spin wo con* [id number] IMPRESSION: 1. 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 2. Large anterior bridging osteophytes involving a large portion of the cervic al spine. 3. No fracture. 4. Ankylosis at C5-C6 disc level. 5. Moderate central and bilateral foraminal stenosis at C5-6. 6. Mild central and bilateral foraminal stenosis at C3-4, C4-5 and C6-7. 7. Small cervical syrinx from the mid C6 level through C7-T1 disc space.
--- NOTE | 2021-01-16 16:45 | MR_ITS ---
WS: [id number] MRI LUMBAR SPINE NONCONTRAST HISTORY: R20.0 - Anesthesia of skin COMPARISON: 02/09/[address] 09/24/2020 TECHNIQUE: Sagittal and axial multisequence imaging is submitted. Mild scoliosis lumbar spine. Increased lordosis is mild. L2 retrolisthesis by 6 mm, L3 retrolisthesis by 4 mm, L4 anterolisthesis by 4 mm. Marked disc space narrowing and desiccation from L2-3 to L4-5. Most significant degenerative change a t L2-3. No acute marrow edema to suggest fracture. Conus terminates normally at L1. L1-L2: Mild facet disease. No stenosis. L2-L3: There is marked osteophytic ridging and marked annular disc bulging with facet arthritis. Retr olisthesis of L2 is contributing also to the moderate central stenosis. Disc and osteophyte material encroach into the lateral recesses and subarticular foramen. There is an extruded component of the di sc extending just below the disc level. Severe subarticular recess stenosis and RIGHT foraminal steno sis. Moderate LEFT foraminal stenosis. L3-L4: Diffuse annular disc bulging and osteophytic ridging with facet arthritis. Small central disc protrusion. Moderate central, subarticular recess and bilateral foraminal stenosis. L4-L5: Diffuse annular disc bulging and osteophytic ridging. Severe ligamentum flavum disease and fac et arthritis. Severe encroachment upon the subarticular recesses and the L5 nerve roots bilaterally, LEFT greater than RIGHT. There is moderate to severe central stenosis with mild bilateral foraminal s tenosis. L5-S1: Mild osteophytic ridging. No significant stenosis. Calcification within the visualized aorta. MR/MR lumbar spine wo con* [id number] IMPRESSION: 1. No acute lumbar spine fracture. 2. Severe lumbar spondylosis with multiple levels of stenoses. 3. Moderate to severe central stenosis and mild bilateral foraminal stenosis a t L4-5. Significant encroachment upon the L5 nerve roots bilaterally in the sub articular recesses. 4. Moderate central stenosis at L2-3 severe bilateral subarticular recess and RIGHT foraminal stenosis with moderate LEFT foraminal stenosis at L2-3 due to c ombination of disc disease and osteophytic ridging. 5. Moderate central, bilateral subarticular recess and foraminal stenosis at L 3-4. 6. Retrolisthesis of L2 and L3 and anterolisthesis of L4. 7. As compared to the prior MRI from 2018 there is been a moderate progression of spondylitic changes and stenoses.
== END 2021-01-16 15:32 | disposition home or self-care (01) ==
LOC: RADSHAW 15:36
PROVIDERS: PCP Family Medicine; Visit Provider Specialist
DX: M54.2 Cervicalgia (principal); R20.0 Anesthesia of skin; R20.2 Paresthesia of skin; M47.816 Spondylosis without myelopathy or radiculopathy, lumbar region; M48.061 Spinal stenosis, lumbar region without neurogenic claudication
CPT/HCPCS: 72141; 72148

== ENCOUNTER 2021-02-14 20:00 | Outpatient (CLI) | payer OTHER, SELFPAY | END 2021-02-14 20:01 | disposition home or self-care (01) | LOC: SLEEP 02-15 08:57 | PROVIDERS: PCP Family Medicine; Visit Provider Family Medicine | DX: G47.33 Obstructive sleep apnea (adult) (pediatric) (principal) | CPT/HCPCS: 72110; 95810 ==

== ENCOUNTER → 2021-03-15 15:10 | Outpatient (BNVA) | payer OTHER, SELFPAY | PROVIDERS: PCP Family Medicine; Visit Provider Orthopaedic Surgery | DX: Z01.818 Encounter for other preprocedural examination (principal); Z11.52 Encounter for screening for COVID-19; Z20.822 Contact with and (suspected) exposure to COVID-19 | CPT/HCPCS: 87635 ==

== ENCOUNTER 2021-03-20 11:16 | Day surgery (SDC) | payer OTHER, SELFPAY ==
[2021-03-18 14:03] VITALS: BMI 33.4
--- NOTE | 2021-03-18 14:12 | ECG_ITS ---
[facility] Test Date: 2021-03-18 Pat Name: Raphael Deal Department: Room: Gender: Male Research Staff Member: : 1950 Requested By: Jeff Mosquera Order Number: [id number] Nilay MD: June Hernández M.D. Measurements Intervals [place] Rate: 73 P: 29 FL: 200 QRS: 83 QRSD: 134 T: 56 QT: 410 QTc: 452 Interpretive Statements SINUS RHYTHM POSSIBLE LEFT ATRIAL ENLARGEMENT [-0.1mV P WAVE IN V1/V2] RIGHT BUNDLE BRANCH BLOCK POSSIBLE INFERIOR MYOCARDIAL INFARCTION [30 ms Q WAVE IN II/aVF], PROBABLY OLD Compared to ECG 09/24/2020 14:09:21 Intraventricular conduction delay now present Myocardial infarct finding now present Right bundle-branch block no longer present Electronically Signed On 03-18-2021 22:57:10 CDT by June Hernández M.D. [id number]
[2021-03-18 14:42] LABS: Basophils # 0.1 10^3/uL (0.0-0.1); Basophils % 0.8 %; Eosinophils # 0.4 10^3/uL (0.0-0.8); Eosinophils % 3.7 %; Hemoglobin 13.4 g/dL (11.7-16.6); Lymphocytes # 3.5 10^3/uL (0.8-4.8); Lymphocytes % 30.4 %; Mean Corpuscular HGB Conc 34.4 g/dL (30.0-36.0); Mean Corpuscular Hemoglobin 31.3 pg (28.0-34.0); Mean Corpuscular Volume 91.1 fL (80-94); Mean Platelet Volume 10.9 fL (7.4-10.4); Monocytes # 0.9 10^3/uL (0.2-0.9); Monocytes % 7.4 %; Neutrophils # 6.72 10^3/uL (1.8-7.7); Neutrophils % 57.5 %; Nucleated Red Blood Cells % 0 %; Platelet Count 261 10^3/cmm (130-400); Red Blood Count 4.28 10^6/uL (4.1-5.3); Red Cell Distribution Width 12.9 % (12.1-15.1); White Blood Count 11.7 10^3/uL (4.0-10.0)
[2021-03-18 15:00] LABS: Anion Gap 16.4 (5-19); Blood Urea Nitrogen 15 mg/dL (8-23); Calcium 9.1 mg/dL (8.5-10.5); Carbon Dioxide 25 mmol/L (22-29); Chloride 99 mmol/L (98-107); Glucose 283 mg/dL (65-115); Osmolality Calculated 293 mOsm/kg (285-295); Potassium 4.4 mmol/L (3.5-5.1); Sodium 136 mmol/L (136-145)
[2021-03-20] VITALS (8 sets, daily range): BP systolic 148–193; BP diastolic 80–98; PULSE 62–78; RESP 15–20; TEMP 36.1–36.5; O2SAT 95–99
--- NOTE | 2021-03-20 | SCC_ITS ---
Procedure Done: 1. Bilateral L2/3 laminectomy with partial facetectomies 2. Bilateral L3/4 laminectomy with partial facetectomies 3. Bilateral L4/5 laminectomy with partial facetectomies 57.6 seconds of fluoroscopic guidance, for a cumulative dose of 43.08 mGy, was provided to Dr. Smith by the radiology department. C-arm images of the lumbar spine were saved for the patient's permanent record. [facility]
[2021-03-20 11:50] LABS: Glucose Point of Care 223 mg/dL (70-110)
[2021-03-20] MEDS: sodium chloride 0.9% 1,000 ML 30 ML IV (11:50)
--- NOTE | 2021-03-20 12:25 | ANES.PAUD2 ---
Pre-Anesthetic Update Pre-Anesthetic Assessment: Date of Surgery/Procedure: 03/20/21 Preop Diagnosis: lumbar stenosis with neurgenic claudication Proposed Procedure: Operation Date: 03/20/21 13:00 Proposed Procedures p Lumbar Spine Decompression L2/3 L3/4 L4/5 44351 [id number] 19108 M48.061(Not Applicable) - Aldochanel Lewis Caron, DO Any changes to Pre-Anesthetic Assessment?: No Last Intake: Intake Last Liquid Date 03/19/21 Last Liquid Time 23:00 Last Solid Date 03/19/21 Last Solid Time 23:00 Labs Last 48hrs: Laboratory Results - last 48 hr 03/18/21 03/18/21 03/20/21 14:30 14:30 11:46 WBC 11.7 H RBC 4.28 Hgb 13.4 Hct 39.0 L MCV 91.1 MCH 31.3 MCHC 34.4 RDW 12.9 Plt Count 261 MPV 10.9 H Neut % (Auto) 57.5 Lymph % (Auto) 30.4 [place] % (Auto) 7.4 Eos % (Auto) 3.7 Baso % (Auto) 0.8 Neut # (Auto) 6.72 Lymph # (Auto) 3.5 [place] # (Auto) 0.9 Eos # (Auto) 0.4 Baso # (Auto) 0.1 Nucleated RBC % (a uto) 0 Nucleated RBCs # 0.0 Sodium 136 Potassium 4.4 Chloride 99 Carbon Dioxide 25 Anion Gap 16.4 BUN 15 Creatinine 0.8 GFR Calculation Not Reportable Glucose 283 H POC Glucose 223 H Calculated Osmolal ity 293 Calcium 9.1 Vitals: Temperature 97.7 F 03/20/21 11:35 Pulse Rate 74 03/20/21 11:35 Respiratory Rate 18 03/20/21 11:35 Blood Pressure 193/92 03/20/21 11:35 Blood Pressure Funmi n 125 03/20/21 11:35 Pulse Oximetry 98 03/20/21 11:35 Oxygen Delivery Me thod 03/20/21 11:35 Exam: Pre-Anes Outpt Exam: alert, oriented x 3, clear to auscultation bilaterally and regular rate & rhythm Cardiac Studies: No Data to Display
--- NOTE | 2021-03-20 14:26 | W.PM.OPSUD ---
Surgery/Procedure H&P Update DATE OF PROCEDURE: March 20, 2021 DATE H&P PERFORMED: 03/20/21 H&P UPDATE INFORMATION: I have reviewed H&P completed within last 30 days, I have examined patient prior to procedure and No changes to prior documentation PREOP DIAGNOSIS: lumbar stenosis with neurgenic claudication PLANNED PROCEDURE: Operation Date: 03/20/21 13:00 Proposed Procedures p Lumbar Spine Decompression L2/3 L3/4 L4/5 61441 44992 84136 M48.061(Not Applicable) - Aldo Smith DO
--- NOTE | 2021-03-20 14:27 | P.HP_ITS ---
Providers/Chief Complaint Primary Care Provider: Trisha Urena MD Chief Complaint: lumbar stenosis History of Present Illness Raphael Deal is a 71 year old male 71 year old female here for evaluation of low back pain. He is using a walking cane at this visit. Chief Complaint: low back pain Onset: years, worse today Duration: years Characteristics: numbness, sharp, dull ache Severity: 8/10 Location: low back Radiating symptoms: anterior right thigh, right hip, right leg numbness, numbness to left leg from knee down. Aggravating factors: weather, sitting to long Alleviating factors:Ibuprofen 600mg -1000mg at one time with some relief, hydrocodone for break thgouh pain Neuro deficits: denies numbness, tingling, weakness, incontinence of bowel/bladder, saddle anesthesia. Prior tx: ablation x2 with short term relief, possibly one injection but he is unsure. Review of Systems Narrative: General ROS: negative for weight changes, fever ENT ROS: negative for nasal congestion, drainage or bleeding, sore throat, dysphagia or ear pain Eyes: PERRL Hematological and Lymphatic ROS: negative for swollen glands or abnormal bleeding Endocrine ROS: negative for polyuria/polydpsia or new changes in weight Respiratory ROS: negative for cough, shortness of breath, or wheezing Cardiovascular ROS: negative for chest pain or dyspnea on exertion Gastrointestinal ROS: negative for reflux, abdominal pain, change in bowel habits, or black or bloody stools Musculoskeletal ROS: negative for back pain, neck pain, or joint pain or swelling except for current problem Neurological ROS: negative for TIA or stoke symptoms Skin: no rashes Medications/Allergies Home Medications Medication Instructions Recorded Confirmed Last Taken Type cholecalciferol (vitamin D3) 25 3,000 unit PO DAILY 11/07/19 03/20/21 03/19/21 History mcg (1,000 unit) capsule digoxin 250 mcg (0.25 mg) tablet 250 mcg PO DAILY 11/07/19 03/20/21 03/19/21 History insulin aspart U-100 100 unit/mL See Rx Instructions SUBCUT TID 11/07/19 03/20/21 03/19/21 History (3 mL) subcutaneous pen insulin glargine 100 unit/mL 100 unit SUBCUT BID ml 11/07/19 03/20/21 03/19/21 History subcutaneous solution metformin 500 mg tablet 1,000 mg PO BID 11/07/19 03/20/21 03/19/21 History omega-3 fatty acids 1,000 mg 1,000 mg PO BID 11/07/19 03/20/21 03/19/21 History capsule rivaroxaban 20 mg tablet 20 mg PO DAILY 11/07/19 03/18/21 03/16/21 History celecoxib 200 mg PO BID #20 cap 03/29/20 03/18/21 03/19/21 Rx Pain Relieving (m-salic-men) See Rx Instructions .ROUTE .COMPLEX 05/07/20 03/18/21 Unknown History fluticasone propionate [Flonase 2 spray INTRANASAL DAILY PRN 05/07/20 03/20/21 Unknown History Allergy Relief] furosemide [Lasix] 20 mg PO QAM 05/07/20 03/20/21 03/19/21 History gabapentin 800 mg PO TID 05/07/20 03/20/21 03/19/21 History ibuprofen 600 mg PO PRN 05/07/20 03/18/21 Unknown History lidocaine See Rx Instructions .ROUTE .COMPLEX 05/07/20 03/18/21 Unknown History lisinopril 10 mg PO DAILY 05/07/20 03/20/21 03/19/21 History rosuvastatin [Crestor] 20 mg PO QPM 05/07/20 03/20/21 03/19/21 History sotalol 80 mg PO BID 05/07/20 03/20/21 03/19/21 History hydrocodone-acetaminophen 1 tab PO Q8H PRN #14 tab 07/20/20 03/20/21 03/19/21 Rx Allergies Allergy/AdvReac Type Severity Reaction Status Date / Time No Known Allergies Allergy Verified 03/18/21 14:02 PFSH Acute PFSH: Medical History (Updated 03/20/21 @ 14:28 by Aldo Smith DO) Anticoagulation adequate with anticoagulant therapy Xarelto Atrial fibrillation Chronic anticoagulation Diabetes 1.5, managed as type 2 Diabetic neuropathy H/O prostate cancer HTN (hypertension) Low back pain Lumbar stenosis with neurogenic claudication Obstructive sleep apnea Refuses CPAP Surgical History History of pilonidal cyst S/P appendectomy S/P tonsillectomy Family History Grandmother Cancer MATERNAL Diabetes Grandfather Hypertension MATERNAL Diabetes Social History Smoking and tobacco status: never smoked Alcohol intake: former Household members: children Marital status: service: Yes branch: [employer] 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 GENERAL: Patient in no acute distress. CARDIAC: Regular rate and rhythm. CHEST: Normal inspiratory effort, normal respiratory rate. ABDOMEN: Soft and nontender. SKIN: Clear, warm and intact. NEURO?PSYCH: The patient is alert and oriented to person, place and time. Sensorv /SILT Motor StrengthShoulder abduction C5 5/5Wrist extension C6 5/5Elbow extension C7 5/5Hand Staff Climate Scientist C8 5/5Finger abduction T15/5 Radial/ Ulnar/ Median n intact LowerSensory (SILT)Motor StrengthHin flexion L2/3Ant/inner thigh 5/5Hip adduction L2/3 5/5Knee extension L4 Lat thigh, 5/5Toe dorsiflexion L5 5/5Ankle dorsiflexion L5/ B07Upualjk flexion S1 5/5 DTRBleeps 2+Triceps 2+Brachioradialis 2+Patellar 2+Achilles 2+ MUSCULOSKELETAL: [] UPPEREXTREMITIES: The patient had full active ROM in fingers, wrist, elbow, and shoulder. The patient demonstrated ability to fully flex/extend/abduct/adduct fingers, make ok sign, cross 2nd/3rd digits, extend 1st digit fully.. Radial pulse 2+, CR<2 seconds. LOWER EXTREMITIES: Pt has full, active ROM of toes, ankle, knee, and hip. Dorsalis pedis/posterior tibialis pulses 2+, CR<2 seconds. SPINE: Skin warm, dry, intac Data : 03/18/21 14:30 03/18/21 14:30 A&P Assessment and plan (1) Lumbar stenosis with neurogenic claudication: Lumbar decompresion Status: Acute Attestations Medical Necessity Statement*: failed conservative tx Coding Level of Care Code Acute Bench Mechanic for Chg Fwd Diagnoses Lumbar stenosis with neurogenic claudication M48.062
[2021-03-20] MEDS: gelatin 12-7 mm Sponge 1 EACH TOPICAL (15:43)
--- NOTE | 2021-03-20 17:04 | P.OP_ITS ---
Operative Report Date of procedure: March 20, 2021 Pre-op Diagnosis: lumbar stenosis with neurgenic claudication Post-op diagnosis: same Procedure Done: 1. Bilateral L2/3 laminectomy with partial facetectomies 2. Bilateral L3/4 laminectomy with partial facetectomies 3. Bilateral L4/5 laminectomy with partial facetectomies Surgeon: Aldo Smith Anesthesia: General Estimated blood loss (mL): 20 Condition: stable Disposition: PACU Procedure: 1. Bilateral L2/3 laminectomy with partial facetectomies 2. Bilateral L3/4 laminectomy with partial facetectomies 3. Bilateral L4/5 laminectomy with partial facetectomies Patient is brought to the operative suite. After undergoing anesthesia they are placed in the supine position. All areas of impingement are well padded. Patient is then prepped and draped in the normal sterile fashion. A skin incision is made over the L4/5 level. This is confirmed under c-arm guidance. A series of dilators are passed and the tubular retractor is docked on the L4 lamina. A bovie is used to clear the soft tissue off the lamina and t he L 4/5 facet joint. A high speed jazmín is then used to perform the laminectomy and take down the medial aspect of the L 4/5 facet joint. A kerrison rongeure was then used to take down the remaining lamina and smooth the edged of the laminectomy up to the point where the ligamentum flavum attaches. Attention was then brought to the medial aspect of the facet joint. The remaining medial aspect of the superior and inferior aspect of the facet joint were taken down with the kerrison from the pedicle of L4 to L 5. The facet joint had significant hypertrophy. Attention was then brought to the Ligamentum Flavum. The ligament was taken down from the lamina of L4 to L5 and out medially to the remaining facet joint. The ligament was thick. The dura was then exposed. The dura was in good rep air. The L4 nerve was then traced with a curette out the L4/5 foramen and found to be adequately decompressed. The L5 nerve was traced with a curette around the L5 pedicle. The lateral recess was opened with a kerrison helping to further decompress the L5 nerve. The tubular retractor was then tilted to the contralateral side. The bovie was used to take down the soft tissue on the spinous process. The high speed jazmín was used to take down the spinous process and then the contralateral lamina of L4. The kerrison rongeur was used to take down the remaining lamina to the point where the ligamentum flavum attached and the ligamentum flavum was taken down from L4 to L5. The kerrison rongeur was then used to reach across and take down the medial aspect of the contralateral L4/5 facet joint.The currete was used to trace the contralateral L4 nerve out the L4/5 foramen to make sure it was decompressed adequatesly and the L5 was traced around the L5 pedicle. The lateral recess was opened further with the kerrison to ensure the L5 is adequately decompressed. Wound is then irrigated copiously with saline and surgiflo is used to stop any bleeding. Patient had a small dural tear. A piece of Gelfoam was used to stop the leak and then a piece of DuraGen was placed over the hole and then DuraSeal was used to seal off the leak. The tubular retractor is removed A skin incision is made over the L3/4 level. This is confirmed under c-arm guidance. A series of dilators are passed and the tubular retractor is docked on the L4 lamina. A bovie is used to clear the soft tissue off the lamina and the L 3/4 facet joint. A high speed jazmín is then used to perform the laminectomy and take down the medial aspect of the L 3/4 facet joint. A kerrison rongeure was then used to take down the remaining lamina and smooth the edged of the laminectomy up to the point where the ligamentum flavum attaches. Attention was then brought to the medial aspect of the facet joint. The remaining medial aspect of the superior and inferior aspect of the facet joint were taken down with the kerrison from the pedicle of L4 to L 5. The facet joint had significant hypertrophy. Attention was then brought to the Ligamentum Flavum. The ligament was taken down from the lamina of L4 to L5 and out medially to the remaining facet joint. The ligament was thick. The dura was then exposed. The dura was in good repair. The L3 nerve was then traced with a curette out the L3/4 foramen and found to be adequately decompressed. The L4 nerve was traced with a curette around the L4 pedicle. The lateral recess was opened with a kerrison helping to further decompress the L4 nerve. The tubular retractor was then tilted to the contralateral side. The bovie was used to take down the soft tissue on the spinous process. The high speed jazmín was used to take down the spinous process and then the contralateral lamina of L3. The kerrison rongeur was used to take down the remaining lamina to the point where the ligamentum flavum attached and the ligamentum flavum was taken down from L3 to L4. The kerrison rongeur was then used to reach across and take down the medial aspect of the contralateral L3/4 facet joint.The currete was used to trace the contralateral L3 nerve out the L3/4 foramen to make sure it was decompressed adequatesly and the L4 was traced around the L4 pedicle. The lateral recess was opened further with the kerrison to ensure the L4 is adequately decompressed. Wound is then irrigated copiously with saline and surgiflo is used to stop any bleeding. The tubular retractor is removed A skin incision is made over the L2/3 level. This is confirmed under c-arm guidance. A series of dilators are passed and the tubular retractor is docked on the L2 lamina. A bovie is used to clear the soft tissue off the lamina and the L 2/3 facet joint. A high speed jazmín is then used to perform the laminectomy and take down the medial aspect of the L 4/5 facet joint. A kerrison rongeure was then used to take down the remaining lamina and smooth the edged of the laminectomy up to the point where the ligamentum flavum attaches. Attention was then brought to the medial aspect of the facet joint. The remaining medial aspect of the superior and inferior aspect of the facet joint were taken down with the kerrison from the pedicle of L2 to L3. The facet joint had significant hypertrophy. Attention was then brought to the Ligamentum Flavum. The ligament was taken down from the lamina of L4 to L5 and out medially to the remaining facet joint. The ligament was thick. The dura was then exposed. The dura was in good repair. The L2 nerve was then traced with a curette out the L2/3 foramen and found to be adequately decompressed. The L3 nerve was traced with a curette around the L3 pedicle. The lateral recess was opened with a kerrison helping to further decompress the L3 nerve. The tubular retractor was then tilted to the contralateral side. The bovie was used to take down the soft tissue on the spinous process. The high speed jazmín was used to take down the spinous process and then the contralateral lamina of L2. The kerrison rongeur was used to take down the remaining lamina to the point where the ligamentum flavum attached and the ligamentum flavum was taken down from L2 to L3. The kerrison rongeur was then used to reach across and take down the medial aspect of the contralateral L2/3 facet joint.The currete was used to trace the contralateral L2 nerve out the L2/3 foramen to make sure it was decompressed adequatesly and the L3 was traced around the L3 pedicle. The lateral recess was opened further with the kerrison to ensure the L3 is adequately decompressed. Wound is then irrigated copiously with saline and surgiflo is used to stop any bleeding. The tubular retractor is removed and the wound is closed with vicryl and monocryl suture. Glue is then used to protect the wound. A sterile dressing is then placed. Patient was then placed in the supine position and transferred to the PACU in stable condition. Patient had a small dural leak at the L4-5 level midline in the L3-4 level towards the right side. Both had patches placed and the leak stopped.
--- NOTE | 2021-03-20 17:11 | XR_ITS ---
WS: [id number] Exam: XR lumbar spine 1V [id number] Date/Time of Exam: 03/20/2021 5:11 PM Reason For Exam: LUMBAR STENOSIS A single lateral C-arm intraoperative image of the lumbar spine is submitted. A surgical port appears to be positioned in the region of the posterior soft tissues at the L2-3 disc level. No other signif icant finding on this limited study.
--- NOTE | 2021-03-20 17:30 | ANE.PACU2 ---
Inpatient post-anesthesia follow up: Airway intact: Yes Vital signs: Temperature 97.7 F Pulse Rate 74 Respiratory Rate 18 Blood Pressure 193/92 Pulse Oximetry 98 Oxygen Delivery Me thod Room Air Oxygen Flow Rate Fraction of Inspir ed Oxygen Hydration adequate: Yes Nausea and vomiting: No Pain level: 3 Additional Comments: Sedated
[2021-03-20 17:32] LABS: Glucose Point of Care 170 mg/dL (70-110)
== END 2021-03-20 18:14 | disposition home or self-care (01) ==
PROVIDERS: Anesthesiology; PCP Family Medicine; Visit Provider Orthopaedic Surgery
PROC: (CPT 63005; principal; 2021-03-20 12:40)
DX: M48.062 Spinal stenosis, lumbar region with neurogenic claudication (principal); Z79.01 Long term (current) use of anticoagulants; E11.40 Type 2 diabetes mellitus with diabetic neuropathy, unspecified; Z79.84 Long term (current) use of oral hypoglycemic drugs; I10 Essential (primary) hypertension; G47.33 Obstructive sleep apnea (adult) (pediatric); Z85.46 Personal history of malignant neoplasm of prostate
CPT/HCPCS: 63047; 63048 ×2; 36415; 36416; 72020; 76000; 80048; 82962; 85025; 93005; J0690; J2405; J2704; J2710; J3010; J3490; J7030

== ENCOUNTER 2021-03-23 13:44 | Emergency (ER) | payer OTHER, MEDICARE, SELFPAY ==
[2021-03-23 13:54] VITALS: BP 173/86; PULSE 80; RESP 16; O2SAT 96; BMI 33.4
--- NOTE | 2021-03-23 14:45 | W.ED.BACK ---
HPI - Back Pain/Injury General: Chief Complaint: Back Pain/Injury Stated Complaint: BACK PAIN RECENT SURGERY Time Seen by Provider: 03/23/21 13:45 Source: patient and old records reviewed Mode of arrival: EMS Limitations: no limitations History of Present Illness: HPI Narrative: This is a 71-year-old male with a history of lumbar stenosis who had back surgery 3 days ago. Patient presents to the emergency department with continued pain in his back radiating down his right lower extremity. Patient states that he was told that after 2 days he should be walking without difficulty and that his Medicaid so he is here to be evaluated. On further evaluation the patient was unable to feel any of the pain medication that the spine surgeon wrote for him as [facility] did not fill the prescription he received from a spine surgeon. He states that his prescription has been sent by the [facility] but it has not yet arrived. He denies fecal or urinary incontinence. He thinks he may be weak in his right lower extremity but he is not certain. MD elicited complaint: back pain Pertinent past history: prior back pain and back surgery Timing: constant Severity: severe Quality: sharp Location: lumbar spine Radiation: right upper leg Exacerbating factors: movement and sitting upright Relieving factors: none Associated symptoms: Deny abdominal pain, arthralgias, chills, change in bowel habits, difficulty walking, dysuria, fatigue, fecal incontinence, fever(s), hematuria, myalgias, nausea, numbness, syncope, tingling/numbness/burning, urinary frequency, urinary urgency, vomiting or weakness Review of Systems General: Reports: 10 or more systems reviewed and unremarkable except in HPI and below Const: Denies: fever(s), chills or fatigue Card: Denies: syncope GI: Denies: abdominal pain, nausea, vomiting, fecal incontinence or change in bowel habits : Denies: dysuria, urinary urgency or hematuria Neuro: Denies: difficulty walking PFSH ED PFSH: Medical History Anticoagulation adequate with anticoagulant therapy Xarelto Atrial fibrillation Chronic anticoagulation Diabetes 1.5, managed as type 2 Diabetic neuropathy H/O prostate cancer HTN (hypertension) Low back pain Lumbar stenosis with neurogenic claudication Obstructive sleep apnea Refuses CPAP Surgical History History of pilonidal cyst S/P appendectomy S/P tonsillectomy Family History Grandmother Cancer MATERNAL Diabetes Grandfather Hypertension MATERNAL Diabetes Social History Smoking and tobacco status: never smoked Alcohol intake: former Household members: children Marital status: service: Yes branch: [employer] 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 travel: No Financial difficulty paying for basics: Very Hard Physical Exam Const: COMMON NORMALS: no acute distress, average body habitus, patient oriented x3, no limitations, healthy appearing, alert and well nourished HENMT: COMMON NORMALS: normocephalic, atraumatic and moist oral mucous membranes HEAD & SCALP: normocephalic and atraumatic Neck/C-Spine: COMMON NORMALS: no meningeal signs and no JVD Resp: COMMON NORMALS: normal respiratory effort, No retractions, No use of accessory muscles, clear to auscultation bilaterally and percussion normal AUSCULTATION: clear to auscultation bilaterally PERCUSSION: percussion normal Cardio: COMMON NORMALS: no JVD, regular rate, regular rhythm, S1 normal heart sound present, S2 normal heart sound present, No gallops present (Cardio), No clicks present (Cardio), No murmurs present (Cardio), No rub (Cardio) and Peripheral pulses 2+ throughout RATE: regular rate RHYTHM: regular rhythm HEART SOUNDS: S1 normal heart sound present and S2 normal heart sound present PERIPHERAL PULSES: Peripheral pulses 2+ throughout GI: COMMON NORMALS: Normal to inspection, nondistended, normoactive bowel sounds present, Soft to palpation, non-tender, No hepatosplenomegaly present, no masses and no bruits PALPATION: Yes Soft to palpation and Yes No hepatosplenomegaly present Extremity: COMMON NORMALS: normal to inspection, full ROM, capillary refill normal, no calf tenderness and no pedal edema Neuro: COMMON NORMALS: patient oriented x3 SENSORIUM/ORIENTATION: Yes alert MENINGEAL SIGNS: Yes no meningeal signs Course Reevaluation(s): Reevaluation #1: Discussed my conversation with Dr. Smith. I explained that he will be discharged home on oral corticosteroids. Advised that unfortunately there is not much we can do regarding the pharmacy not filling his medications. He will have to wait for his prescription to arrive at his home. He will also be discharged home with a Medrol Dosepak. He voiced understanding and is in agreement with the plan. Time: 14:45 Consultations: Consultation #1: Discussed patient with Dr. Smith, spine surgeon. He advised that the patient be discharged home with his course of corticosteroids and to follow-up with him on Thursday in the clinic. Time: 14:38 Vital Signs: Vital signs: Vital Signs Pulse Rate 81 03/23/21 15:18 Respiratory Rate 17 03/23/21 15:18 Blood Pressure 166/75 03/23/21 15:18 Pulse Oximetry 97 03/23/21 15:18 MDM - Back Pain/Injury MDM Narrative: Medical decision making narrative: 71-year-old male with postop pain. He had spine surgery 3 days ago but unfortunately was not able to feel his pain medication as [facility] but he has not received them. The pharmacy therefore did not fill the prescription that was written out by the spine surgeon. He is discharged home with a prescription for oral Medrol Dosepak pending receipt of his pain medications. He will follow-up with the spine surgeon on Thursday. Medical Records: Attestation: I reviewed the patient's medical records. Discharge Plan Discharge Patient Disposition: Home Clinical Impression: Post-op pain Lumbar stenosis Qualifiers: Neurogenic claudication status: unspecified Qualified Code(s): M48.061 - Spinal stenosis, lumbar region without neurogenic claudication Condition: Stable Prescriptions: New Medrol (Williams) 4 mg tablets,dose pack See Rx Instructions .ROUTE .COMPLEX Qty: 21 RF: 0 Continued omega-3 fatty acids [Fish Oil Concentrate] 1,000 mg capsule 1,000 mg PO BID RF: 0 insulin aspart U-100 [Novolog Flexpen U-100 Insulin] 100 unit/mL (3 mL) insulin pen See Rx Instructions SUBCUT TID RF: 0 metformin 500 mg tablet 1,000 mg PO BID RF: 0 digoxin 250 mcg (0.25 mg) tablet 250 mcg PO DAILY RF: 0 Lantus U-100 Insulin 100 unit/mL solution 100 unit SUBCUT BID RF: 0 cholecalciferol (vitamin D3) [Vitamin D3] 25 mcg (1,000 unit) capsule 3,000 unit PO DAILY RF: 0 Xarelto 20 mg tablet 20 mg PO DAILY RF: 0 sotalol 160 mg Tablet 80 mg PO BID RF: 0 lisinopril 20 mg Tablet 10 mg PO DAILY RF: 0 gabapentin 800 mg Tablet 800 mg PO TID RF: 0 ibuprofen 200 mg Tablet 600 mg PO PRN RF: 0 furosemide [Lasix] 20 mg Tablet 20 mg PO QAM RF: 0 fluticasone propionate [Flonase Allergy Relief] 50 mcg/actuation [place],Suspension 2 spray INTRANASAL DAILY PRN (Reason: Allergy Symptoms) RF: 0 rosuvastatin [Crestor] 40 mg Tablet 20 mg PO QPM RF: 0 lidocaine 5 % ointment See Rx Instructions .ROUTE .COMPLEX RF: 0 Pain Relieving (m-salic-men) 15-1 % cream See Rx Instructions .ROUTE .COMPLEX RF: 0 hydrocodone-acetaminophen 5-325 mg tablet 1 - 2 tab PO .Q4-6H Qty: 40 RF: 0 celecoxib 200 mg capsule 200 mg PO BID Qty: 20 RF: 0 hydrocodone-acetaminophen 7.5-325 mg tablet 1 tab PO Q8H PRN (Reason: pain) Qty: 14 RF: 0 Discharge Orders: Discharge ED (Routine); Ordered 03/23/21 Ordered By: Tiago Umanzor Referrals: Trisha Urena MD [Primary Care Provider] - 1-3 days Discharge Diet: Usual diet Discharge Activity: Increase activity as tolerated Patient Instructions: Lumbar Spinal Stenosis (ED), Chronic Back Pain (ED), Post Operative Pain Activity Restrictions/Additional Instructions: Return for any new or worsening symptoms. Follow-up with your primary care provider within 1 week. Follow-up with Dr. Smith on Thursday in the clinic. When your pain medications arrive please take them as prescribed. Take the steroid as prescribed. Because you are diabetic I want you to check your blood sugar more frequently and adjust your insulin doses if needed as the steroid may increase your blood sugar levels. Coding Level of Care Code ED Artificial Breeding Technician for Say Muñoz
[2021-03-23] MEDS: morphine 4 mg/mL SDV 1 mL 8 MG IM (15:07)
[2021-03-23 15:08] VITALS: BP 166/75; PULSE 80; O2SAT 97
[2021-03-23 15:18] VITALS: BP 166/75; PULSE 81; RESP 17; O2SAT 97
== END 2021-03-23 15:19 | disposition home or self-care (01) ==
PROVIDERS: Emergency Provider Family Medicine; PCP Family Medicine
DX: M48.061 Spinal stenosis, lumbar region without neurogenic claudication (principal); G89.18 Other acute postprocedural pain; Z79.4 Long term (current) use of insulin; I48.91 Unspecified atrial fibrillation; E13.9 Other specified diabetes mellitus without complications; Z85.46 Personal history of malignant neoplasm of prostate; I10 Essential (primary) hypertension
CPT/HCPCS: 96372; 99283; J2270

== ENCOUNTER → 2021-04-11 13:42 | Outpatient (BNVA) | payer OTHER, MEDICARE, SELFPAY | PROVIDERS: PCP Family Medicine; Visit Provider Orthopaedic Surgery | DX: Z01.818 Encounter for other preprocedural examination (principal); M48.061 Spinal stenosis, lumbar region without neurogenic claudication; M48.062 Spinal stenosis, lumbar region with neurogenic claudication; Z98.890 Other specified postprocedural states | CPT/HCPCS: 72100 ==

== ENCOUNTER → 2021-04-15 11:46 | Outpatient (BNVA) | payer OTHER, MEDICARE, SELFPAY | PROVIDERS: PCP Family Medicine; Visit Provider Registered Nurse Neonatal Intensive Care | DX: R39.9 Unspecified symptoms and signs involving the genitourinary system (principal) | CPT/HCPCS: 81000 ==

== ENCOUNTER 2021-05-10 11:41 | Outpatient (CLI) | payer OTHER, SELFPAY ==
--- NOTE | 2021-05-10 11:54 | MR_ITS ---
WS: [id number] MRI LUMBAR SPINE NONCONTRAST TECHNIQUE: Sagittal T1, T2 and STIR imaging. Axial T1 and T2 imaging. CLINICAL INFORMATION: M48.062 - Spinal stenosis, lumbar region with neurogenic ... COMPARISON: MRI January 16, 2021 FINDINGS: Right L2-3, right L3-4, and right L4-5 hemilaminectomies are new from previous. Mild lumbar curve. No acute compression. Slight retrolisthesis L2 on L3 with disc desiccation. Disc b ulging worse at L2-3 and L3-4. Slight anterolisthesis L4 on L5. L1-L2: Mild annular bulging. Tiny annular tear. Mild facet arthropathy. Spinal canal and foramen are patent. Mild facet arthropathy. L2-L3: Retrolisthesis L2 on L3 with degenerative disc disease. Moderate central canal stenosis has im proved with impingement on the traversing L3 nerve roots bilaterally with moderate facet arthropathy. Severe right and no significant left foraminal narrowing. L3-L4: Mild disc bulging with shallow central disc bulging. Impingement traversing L4 nerve roots molina aterally with moderate residual central canal stenosis. New small right synovial cyst impinges the ri ght dorsal thecal sac contributing to residual central canal stenosis. Moderate right and mild left f oraminal narrowing. Moderate to advanced facet arthropathy. Right hemilaminectomy. L4-L5: Slight anterolisthesis L4 on L5. Mild disc bulging with mild central canal stenosis improved f rom previous. Impingement on the traversing left greater than right L5 nerve roots. Advanced facet ar thropathy. Mild right and no significant left foraminal narrowing. L5-S1: No significant disc bulging. Tiny annular fissure. Spinal canal and foramen are patent. Mild f acet arthropathy. Visualized pelvic bony structures: Normal. Paravertebral soft tissues: Normal. MR/MR lumbar spine wo con* [id number] IMPRESSION: 1. Right L2-3, right L3-4, and right L4-5 hemilaminectomies are new from previ ous. 2. Mild lumbar curve. No acute compression. Slight retrolisthesis L2 on L3 wit h disc desiccation. 3. Central canal stenosis L2-L3 appears improved from previous. 4. Moderate residual central canal stenosis L3-4 appears slightly improved fro m previous. However, new small 10 mm right synovial cyst, just below the kimberly ctomy defects, impinges the right dorsal thecal sac contributing to central can al stenosis. 5. Improved mild central canal stenosis L4-5. 6. Severe right L2-3 foraminal narrowing impinges the exiting right L2 nerve r oot. 7. Mild to moderate right L3-4 foraminal narrowing. Mild right L4-5 foraminal narrowing. 8. Moderate to advanced facet arthropathy L2-L3, L3-L4, L4-L5. This is worse a t L4-5.
== END 2021-05-10 11:42 | disposition home or self-care (01) ==
LOC: RADWPI 11:47
PROVIDERS: PCP Family Medicine; Visit Provider Orthopaedic Surgery
DX: M48.062 Spinal stenosis, lumbar region with neurogenic claudication (principal); M47.816 Spondylosis without myelopathy or radiculopathy, lumbar region; M48.061 Spinal stenosis, lumbar region without neurogenic claudication; M96.1 Postlaminectomy syndrome, not elsewhere classified
CPT/HCPCS: 72148

== ENCOUNTER 2021-06-04 10:06 | Outpatient (RCR) | payer OTHER, SELFPAY | END 2021-06-04 23:59 | disposition home or self-care (01) | LOC: SPT 10:06 | PROVIDERS: PCP Family Medicine; Referring Provider Family Medicine; Visit Provider Family Medicine | DX: M48.062 Spinal stenosis, lumbar region with neurogenic claudication (principal) | CPT/HCPCS: 97110; 97162 ==

== ENCOUNTER 2021-06-05 06:00 | Outpatient (RCR) | payer OTHER, SELFPAY | END 2021-07-04 23:59 | disposition home or self-care (01) | LOC: SPT 06:00 | PROVIDERS: PCP Family Medicine; Referring Provider Family Medicine; Visit Provider Family Medicine | DX: M48.062 Spinal stenosis, lumbar region with neurogenic claudication (principal) | CPT/HCPCS: 97110; 97113 ==

== ENCOUNTER 2021-07-05 06:00 | Outpatient (RCR) | payer OTHER, SELFPAY | END 2021-08-04 23:59 | disposition home or self-care (01) | LOC: SPT 06:00 | PROVIDERS: PCP Family Medicine; Referring Provider Family Medicine; Visit Provider Family Medicine | DX: M48.062 Spinal stenosis, lumbar region with neurogenic claudication (principal) | CPT/HCPCS: 97113 ==

== ENCOUNTER 2021-08-05 06:00 | Outpatient (RCR) | payer OTHER, SELFPAY | END 2021-09-03 23:59 | disposition home or self-care (01) | LOC: SPT 06:00 | PROVIDERS: PCP Family Medicine; Referring Provider Family Medicine; Visit Provider Family Medicine | DX: M48.062 Spinal stenosis, lumbar region with neurogenic claudication (principal) | CPT/HCPCS: 97113; 97164 ==

== ENCOUNTER 2021-08-23 11:57 | Inpatient (IN) | payer OTHER, MEDICARE, SELFPAY ==
[2021-08-23 12:42] VITALS: BP 149/78; PULSE 109; RESP 20; TEMP 37.9; O2SAT 92
[2021-08-23 13:01] VITALS: BP 144/75; PULSE 111; RESP 22; TEMP 37.6; O2SAT 93
--- NOTE | 2021-08-23 13:05 | XR_ITS ---
WS: [id number] Exam: XR chest 1V portable [id number] Date/Time of Exam: 08/23/2021 1:10 PM Reason For Exam: sepsis Comparison 05/07/2020. Findings: The lungs are clear and fully expanded. Costophrenic angles are sharp. No infiltrates. Bronchovascula r relief appears normal. Cardiac silhouette is unremarkable. Bony elements are intact. XR/XR chest 1V portable [id number] IMPRESSION: Unremarkable chest radiograph.
--- NOTE | 2021-08-23 13:08 | ECG_ITS ---
[facility] Test Date: 2021-08-23 Pat Name: Raphael Deal Department: Room: Gender: Male Telehealth Case Manager: : 1950 Requested By: Lawrence Winston Order Number: [id number] Nilya MD: June Hernández M.D. Measurements Intervals [place] Rate: 103 P: 86 [place]: 199 QRS: 81 QRSD: 138 T: 21 QT: 328 QTc: 431 Interpretive Statements SINUS TACHYCARDIA RIGHT BUNDLE BRANCH BLOCK [120+ ms QRS DURATION, UPRIGHT V1, 40+ ms S IN I/aVL/V4/V5/V6] Compared to ECG 03/18/2021 14:21:07 Sinus rhythm no longer present Myocardial infarct finding no longer present Electronically Signed On 08-23-2021 16:03:37 PHYSICAL SCIENCE TEACHER by June Hernández M.D. [id number] [place]
--- NOTE | 2021-08-23 13:17 | XR_ITS ---
WS: [id number] Exam: XR ankle LT 2V [id number] Date/Time of Exam: 08/23/2021 1:19 PM Reason For Exam: infectio Findings: Multiple views of the ankle reveal no fracture or displacements of bone. No soft tissue swelling is present. There are no periosteal reactions noted. The talus and calcaneus are in adequate position. The joint space is smooth and equidistant. XR/XR ankle LT 2V [id number] IMPRESSION: Negative left ankle.
--- NOTE | 2021-08-23 13:17 | XR_ITS ---
WS: [id number] Exam: XR foot LT 2V [id number] Date/Time of Exam: 08/23/2021 1:19 PM Reason For Exam: infection No fracture or dislocation. Soft tissue edema of the forefoot. Prominent plantar heel spur. Joint str uctures are well-maintained. No bone destruction. XR/XR foot LT 2V [id number] IMPRESSION: 1. Soft tissue swelling of the forefoot. 2. No fracture or bone destruction.
[2021-08-23 13:40] LABS: Basophils # 0.1 10^3/uL (0.0-0.1); Basophils % 0.3 %; Eosinophils # 0.1 10^3/uL (0.0-0.8); Eosinophils % 0.3 %; Hematocrit 37.7 % (42.0-52.0); Hemoglobin 12.4 g/dL (11.7-16.6); Lymphocytes # 1.7 10^3/uL (0.8-4.8); Lymphocytes % 7.9 %; Mean Corpuscular HGB Conc 32.9 g/dL (30.0-36.0); Mean Corpuscular Hemoglobin 30.6 pg (28.0-34.0); Mean Corpuscular Volume 93.1 fl (80-94); Mean Platelet Volume 10.7 fL (7.4-10.4); Monocytes # 1.5 10^3/uL (0.2-0.9); Monocytes % 7.2 %; Neutrophils # 17.65 10^3/uL (1.8-7.7); Neutrophils % 83.7 %; Nucleated Red Blood Cells % 0 %; Platelet Count 262 10^3/cmm (130-400); Red Blood Count 4.05 10^6/uL (4.1-5.3); Red Cell Distribution Width 13.8 % (12.1-15.1); White Blood Count 21.1 10^3/uL (4.0-10.0)
[2021-08-23 13:43] LABS: ABG PCO2 37.4 mmHg (35-45); ABG PH Result 7.46 (7.35-7.45); Arterial Blood Gas Hematocrit 36.8 % (42-52); Blood Gas Allen Test Pos; Blood Gas Operator Identificat MONRO; Blood Gas Sample Site Radial, right; Blood Gas Sample Type Arterial; HCO3 ABG 26.8 mmol/L (22-26); Oxygen Device ROOM AIR; PO2 ABG 59.6 mmHg (80.0-100.0)
--- NOTE | 2021-08-23 14:14 | W.ED.WOUNDLC ---
HPI - Wound/Laceration General: Chief Complaint: Wound/Laceration Stated Complaint: Infection in Left Foot Time Seen by Provider: 08/23/21 13:04 History of Present Illness: HPI narrative: Patient is a 71-year-old male here with a past medical history of diabetes. He is here accompanied by his daughter. He has a wound on the base of his left foot between his first and second toes. This was first noticed 2 days ago. He has had increasing redness and swelling up to his mid calf on that foot and ankle. Daughter noticed that he had a fever at home as well seem to be somewhat confused and had a rapid heart rate. Was brought here found to be febrile tachycardic. Does appear to have redness or cellulitis on his foot and a nondraining foot wound. Denies chills nausea vomiting diarrhea abdominal pain chest pain rash headache or neck pain Review of Systems General: Reports: 10 or more systems reviewed and unremarkable except in HPI and below PFSH ED PFSH: Medical History Anticoagulation adequate with anticoagulant therapy Xarelto Atrial fibrillation Chronic anticoagulation Diabetes 1.5, managed as type 2 Diabetic neuropathy H/O prostate cancer HTN (hypertension) Low back pain Lumbar stenosis with neurogenic claudication Obstructive sleep apnea Refuses CPAP Surgical History History of pilonidal cyst S/P appendectomy S/P tonsillectomy Family History Grandmother Cancer MATERNAL Diabetes Grandfather Hypertension MATERNAL Diabetes Social History Smoking and tobacco status: former smoker Alcohol intake: never Household members: children Marital status: service: Yes branch: [employer] 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 travel: No Financial difficulty paying for basics: Very Hard Physical Exam Const: COMMON NORMALS: no acute distress, average body habitus, patient oriented x3, no limitations, alert and well nourished HENMT: COMMON NORMALS: normocephalic and atraumatic HEAD & SCALP: normocephalic and atraumatic Eye: COMMON NORMALS: Equal, round and reactive pupils present, EOMs intact bilaterally and conjunctivae normal CONJUNCTIVA: Yes conjunctivae normal PUPIL: Yes Equal, round and reactive pupils present Neck/C-Spine: COMMON NORMALS: no JVD Resp: COMMON NORMALS: normal respiratory effort, No retractions, No use of accessory muscles, clear to auscultation bilaterally and percussion normal AUSCULTATION: clear to auscultation bilaterally PERCUSSION: percussion normal Cardio: COMMON NORMALS: no JVD, regular rate, regular rhythm, S1 normal heart sound present, S2 normal heart sound present and No murmurs present (Cardio) RATE: regular rate RHYTHM: regular rhythm HEART SOUNDS: S1 normal heart sound present and S2 normal heart sound present GI: COMMON NORMALS: Normal to inspection, nondistended, normoactive bowel sounds present, Soft to palpation, non-tender, No hepatosplenomegaly present, no masses and no bruits PALPATION: Yes Soft to palpation and Yes No hepatosplenomegaly present Extremity: NARRATIVE EXTREMITY EXAM: Patient has a what appears to be a puncture wound nondraining with eschar and purulence under the skin the plantar surface of the left foot. Erythema surrounding up to the lower calf. Does have some mild eczema. Neuro: FARRUKH COMA SCALE: document GCS findings [place] coma scale eye opening: Spontaneous Farrukh coma scale verbal response: Orientated [place] coma scale motor response: Obey commands [place] coma scale total score: 15 COMMON NORMALS: patient oriented x3, CN's II-XII intact bilaterally and moves all extremities SENSORIUM/ORIENTATION: Yes alert Psych: COMMON NORMALS: mental status grossly normal, Normal thought process present and cooperative THOUGHT PROCESS: Normal thought process present Skin: NARRATIVE SKIN EXAM: Area of fluctuation and likely. Purulence under the skin with surrounding erythema on the plantar aspect of the left foot Course ED course: Patient remains normotensive x-rays not show any free air or bony destruction. Lactic acid 2.4 rest of his labs do not need immediate correction. Will discuss hospitalization with hospitalist. Attempted I&D of the area of fluctuance on the plantar aspect of his foot with no drainage. Hospitalist to admit. Live Ammunition Inspector be contacted over the weekend Vital Signs: Vital signs: Vital Signs Temperature 99.6 F 08/23/21 13:01 Pulse Rate 111 H 08/23/21 13:01 Respiratory Rate 22 H 08/23/21 13:01 Blood Pressure 144/75 08/23/21 13:01 Pulse Oximetry 93 08/23/21 13:01 MDM - Wound/Laceration MDM Narrative: Medical decision making narrative: Patient is a 71-year-old patient with diabetes and a foot wound with cellulitis Differential includes osteomyelitis, sepsis, cellulitis Patient does meet sepsis criteria. He is normotensive currently tachycardic with a fever and obvious source of infection. Given his diabetes will start vancomycin and atrezanam, fluids. Will get lactic acid ABG CBC CMP x-rays of the area to look for any free air or gas. Will likely need to have podiatry consult and admitted Lab Data: Labs: Lab Results 08/23/21 08/23/21 08/23/21 13:25 13:25 13:25 WBC 21.1 10^3/uL H 10 ^3/uL (4.0-10.0) RBC 4.05 10^6/uL L 10 ^6/uL (4.1-5.3) Hgb 12.4 g/dL g/dL (11.7-16.6) Hct 37.7 % L % (42.0-52.0) MCV 93.1 fl fl (80-94) MCH 30.6 pg pg (28.0-34.0) MCHC 32.9 g/dL g/dL (30.0-36.0) RDW 13.8 % % (12.1-15.1) Plt Count 262 10^3/cmm 10^3 /cmm (130-400) MPV 10.7 fL H fL (7.4-10.4) Neut % (Auto) 83.7 % % Lymph % (Auto) 7.9 % % Collin % (Auto) 7.2 % % Eos % (Auto) 0.3 % % Baso % (Auto) 0.3 % % Neut # (Auto) 17.65 10^3/uL H 1 0^3/uL (1.8-7.7) Lymph # (Auto) 1.7 10^3/uL 10^3/ uL (0.8-4.8) Collin # (Auto) 1.5 10^3/uL H 10^ 3/uL (0.2-0.9) Eos # (Auto) 0.1 10^3/uL 10^3/ uL (0.0-0.8) Baso # (Auto) 0.1 10^3/uL 10^3/ uL (0.0-0.1) Nucleated RBC % (a uto) 0 % % Nucleated RBCs # 0.0 /100WBC /100W BC Specimen Type Sample Site ABG pH ABG pCO2 ABG pO2 ABG HCO3 ABG Base Excess Stevenson Test Hematocrit O2 Delivery Device FiO2 Seed Potato Arranger ID Sodium 132 mmol/L L mmol /L (136-145) Potassium 4.8 mmol/L mmol/L (3.5-5.1) Chloride 92 mmol/L L mmol/ L (98-107) Carbon Dioxide 22 mmol/L mmol/L (22-29) Anion Gap 22.8 H (5-19) BUN 26 mg/dL H mg/dL (8-23) Creatinine 1.3 mg/dL H mg/dL (0.7-1.2) GFR Calculation Not Reportable Glucose 314 mg/dL H mg/dL (65-115) Calculated Osmolal ity 291 mOsm/kg mOsm/ kg (285-295) Lactic Acid 2.4 mmol/L H mmol /L (0.5-2.2) Calcium 8.9 mg/dL mg/dL (8.5-10.5) Total Bilirubin 0.9 mg/dL mg/dL (0.15-1.2) AST 15 U/L U/L (0-40) ALT 12 U/L U/L (0-41) Alkaline Phosphata se 58 IU/L IU/L (40-130) Troponin T Baselin e Troponin T 120 Min [place] Delta Troponin T Total Protein 6.8 g/dL g/dL (6.6-8.7) Albumin 4.0 g/dL g/dL (3.5-5.2) Globulin 2.8 g/dL g/dL (1.3-4.6) 08/23/21 08/23/21 08/23/21 13:25 13:32 15:45 WBC RBC Hgb Hct MCV MCH MCHC RDW Plt Count MPV Neut % (Auto) Lymph % (Auto) Collin % (Auto) Eos % (Auto) Baso % (Auto) Neut # (Auto) Lymph # (Auto) Collin # (Auto) Eos # (Auto) Baso # (Auto) Nucleated RBC % (a uto) Nucleated RBCs # Specimen Type Arterial Sample Site Radial, right ABG pH 7.46 H (7.35-7.45) ABG pCO2 37.4 mmHg mmHg (35-45) ABG pO2 59.6 mmHg L mmHg (80.0-100.0) ABG HCO3 26.8 mmol/L H mmo l/L (22-26) ABG Base Excess 3.0 mmol/L H mmol /L (-2.0-2.0) Stevenson Test Pos Hematocrit 36.8 % L % (42-52) O2 Delivery Device Room air FiO2 21.0 % % Seed Potato Arranger ID [place] Sodium Potassium Chloride Carbon Dioxide Anion Gap BUN Creatinine GFR Calculation Glucose Calculated Osmolal ity Lactic Acid Calcium Total Bilirubin AST ALT Alkaline Phosphata se Troponin T Baselin e 30 ng/L H ng/L (0-15) Troponin T 120 Min [place] 26.00 ng/L H ng/L (0-15) Delta Troponin T -4.00 ABS# L ABS# (0-10) Total Protein Albumin Globulin Discharge Plan Discharge Patient Disposition: Admitted As Inpatient Clinical Impression: Sepsis Qualifiers: Sepsis type: sepsis due to unspecified organism Sepsis acute organ dysfunction status: without acute organ dysfunction Qualified Code(s): A41.9 - Sepsis, unspecified organism Condition: Stable Coding Level of Care Code ED Chemical Compounder Helper for [facility] Fwd Exam Comprehensive
[2021-08-23 14:18] LABS: Alanine Aminotransferase 12 U/L (0-41); Alkaline Phosphatase 58 IU/L (40-130); Aspartate Amino Transferase 15 U/L (0-40); Blood Urea Nitrogen 26 mg/dL (8-23); Calcium 8.9 mg/dL (8.5-10.5); Carbon Dioxide 22 mmol/L (22-29); Chloride 92 mmol/L (98-107); Globulin 2.8 g/dL (1.3-4.6); Glucose 314 mg/dL (65-115); Lactic Sepsis W/Reflex 2.4 mmol/L (0.5-2.2); Osmolality Calculated 291 mOsm/kg (285-295); Sodium 132 mmol/L (136-145); Total Bilirubin 0.9 mg/dL (0.15-1.2); Total Protein 6.8 g/dL (6.6-8.7); Troponin(5th) Baseline 30 ng/L (0-15)
[2021-08-23 14:20] LABS: Anion Gap 22.8 (5-19); Potassium 4.8 mmol/L (3.5-5.1)
[2021-08-23] MEDS: lactated ringers 1,000 ML 999 ML IV (14:47)
--- NOTE | 2021-08-23 15:08 | ECG_ITS ---
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 Measurements Intervals [place] Rate: 106 P: 93 [place]: 211 QRS: 66 QRSD: 133 T: 21 QT: 344 QTc: 458 Interpretive Statements SINUS TACHYCARDIA WITH FIRST DEGREE AV BLOCK RIGHT BUNDLE BRANCH BLOCK [120+ ms QRS DURATION, UPRIGHT V1, 40+ ms S IN I/aVL/V4/V5/V6] Compared to ECG 08/23/2021 13:32:58 First degree AV block now present Electronically Signed On 08-24-2021 22:07:22 RN DOCUMENT IMPROVEMENT by Meghan Valles M.D. [email or web address]
[2021-08-23] MEDS: aztreonam 2,000 MG in sodium chloride 0.9% (plus) 100 ML 200 MG IV (15:15)
[2021-08-23 15:25] LABS: Reflex Lactate Order REFLEX LACTIC ORDERD
[2021-08-23] MEDS: vancomycin 1,500 MG/300 ML PIGGYBACK 200 MG IV (15:55)
--- NOTE | 2021-08-23 16:03 | P.HP_ITS ---
Providers/Chief Complaint Primary Care Provider: Trisha Urena MD Chief Complaint: Infection in Left Foot History of Present Illness Raphael Deal is a 71 year old male who has history of atrial fibrillation, chronic anticoagulation, presented today for worsening of swelling and redness of his left foot. Patient is stating that for last 1 to 2 weeks he has been noticing bilateral lower extremity swelling. This was gradually getting worse. For last 10 days he has been noticing christina hematuria as well. He does carry history of prostate cancer status post radiotherapy. That was roughly 10 years ago. He never experienced any hematuria in last few years. This was the reason he went to the [place] [facility] where his Lasix dose was increased for worsening leg swelling. He was told to get UA to rule out UTI as a cause for hematuria. Today he presented to the hospital for worsening of left-sided redness and swelling. His also noticed blister on plantar surface of left foot. As per the this blister was not present 48 hours ago. He has not stepped on any sharp object. He did not suffer from any trauma. In the ER he was diagnosed with cellulitis, no drainable abscess was noted, imaging consistent with cellulitis. Patient was started on broad-spectrum antibiotics, ER physician did try to drain fluid around the blister however no abscess was noted Sepsis criteria met with tachycardia, leukocytosis hemodynamically stable Patient does have hypogastric tenderness, requested Villanueva catheter placement Review of Systems Const: Reports: fever(s), chills, body aches and fatigue Eyes: Denies: change in vision ENMT: Denies: throat pain Card: Denies: chest pain Resp: Denies: dyspnea GI: Denies: abdominal pain : Reports: hematuria; Denies: flank pain Musc: Denies: neck pain Skin/Breast: Denies: rash Neuro: Reports: numbness in extremities; Denies: headache(s) or weakness in extremities Psych: Denies: anxiety Endo: Denies: polyuria Felix/Lymph: Denies: easy bruising All/Imm: Denies: urticaria Medications/Allergies Home Medications Medication Instructions Recorded Confirmed Last Taken Type cholecalciferol (vitamin D3) 25 3,000 unit PO DAILY 11/07/19 08/23/21 03/19/21 History mcg (1,000 unit) capsule digoxin 250 mcg (0.25 mg) tablet 250 mcg PO DAILY 11/07/19 08/23/21 03/19/21 History insulin aspart U-100 100 unit/mL 30 unit SUBCUT BID 11/07/19 08/23/21 03/19/21 History (3 mL) subcutaneous pen omega-3 fatty acids 1,000 mg 1,000 mg PO BID 11/07/19 08/23/21 03/19/21 History capsule rivaroxaban 20 mg tablet 20 mg PO DAILY 11/07/19 08/23/21 03/16/21 History Pain Relieving (m-salic-men) See Rx Instructions .ROUTE .COMPLEX 05/07/20 08/23/21 Unknown History fluticasone propionate [Flonase 2 spray INTRANASAL DAILY PRN 05/07/20 08/23/21 Unknown History Allergy Relief] furosemide [Lasix] See Rx Instructions .ROUTE .COMPLEX 05/07/20 08/23/21 08/22/21 History gabapentin 800 mg PO TID 05/07/20 08/23/21 03/19/21 History ibuprofen 600 mg PO Q4H PRN 05/07/20 08/23/21 Unknown History rosuvastatin [Crestor] 20 mg PO QPM 05/07/20 08/23/21 03/19/21 History sotalol 80 mg PO BID 05/07/20 08/23/21 03/19/21 History water aerobics #1 ea 05/09/21 08/23/21 Unknown Rx lisinopril 40 mg tablet 40 mg PO DAILY #30 tab 06/12/21 08/23/21 Unknown Rx cinnamon bark [Cinnamon] 1,500 mg PO DAILY 08/23/21 08/23/21 Unknown History hydrocodone-acetaminophen 1 tab PO BID PRN 08/23/21 08/23/21 Unknown History insulin glargine [Lantus Solostar 80 unit SUBCUT BID 08/23/21 08/23/21 08/23/21 09:00 History U-100 Insulin] metformin 1,000 mg PO BID 08/23/21 08/23/21 Unknown History Allergies Allergy/AdvReac Type Severity Reaction Status Date / Time No Known Allergies Allergy Verified 08/23/21 15:26 PFSH Acute PFSH: Medical History (Updated 08/23/21 @ 17:50 by Carol Juarez MD) Anticoagulation adequate with anticoagulant therapy Xarelto Atrial fibrillation Chronic anticoagulation Diabetes 1.5, managed as type 2 Diabetic neuropathy H/O prostate cancer HTN (hypertension) Low back pain Lumbar stenosis with neurogenic claudication Obstructive sleep apnea Refuses CPAP Surgical History (Updated 08/23/21 @ 17:50 by Carol Juarez MD) History of back surgery History of pilonidal cyst S/P appendectomy S/P tonsillectomy Family History Grandmother Cancer MATERNAL Diabetes Grandfather Hypertension MATERNAL Diabetes Social History Smoking and tobacco status: former smoker Alcohol intake: never Household members: children Marital status: service: Yes branch: [employer] 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 travel: No Financial difficulty paying for basics: Very Hard Vitals/I&O/Wt Last Vital Signs Temp 99.6 F 08/23/21 13:01 Pulse 111 H 08/23/21 13:01 Resp 22 H 08/23/21 13:01 BP 144/75 08/23/21 13:01 Pulse Ox 93 08/23/21 13:01 08/23/21 08/23/21 08/23/21 06:59 14:59 22:59 Intake Total 100 / 100 Balance 100 / 100 Weight last 48 hrs Weight 103.873 kg Physical Exam Narrative: EXAM NARRATIVE: elderly male Appears stated age Does look clinically fluid overloaded Bilateral lower extremity edema Left leg cellulitis extending all the way up to anterior carroll No drainable abscess Blister on plantar surface of left foot EOMI, PERRLA Nonfocal neuro exam Saturating well on room air A. fib RVR EOMI, PERRLA nonfocal neuro exam Appropriate mood and affect at the bedside Abdomen is soft however tenderness in hypogastric region noted No penile trauma noted Data : 08/23/21 13:25 08/23/21 13:25 Micro: Microbiology 08/23/21 13:53 Blood Culture - Preliminary Blood SPECIMEN COLLECTED 08/23/21 13:47 Blood Culture - Preliminary Blood SPECIMEN COLLECTED A&P Assessment and plan (1) Sepsis: Status: Acute Qualifiers: Sepsis acute organ dysfunction status: without acute organ dysfunction Sepsis type: sepsis due to unspecified organism Qualified Code(s): A41.9 - Sepsis, unspecified organism (2) Lumbar stenosis with neurogenic claudication: Status: Acute (3) 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 mellitus: Status: Acute (4) Atrial fibrillation with RVR: Status: Acute (5) Abrasion of left lower leg with infection: Status: Acute (6) HTN (hypertension): Status: Acute (7) Diabetic foot ulcer: Status: Acute (8) Cellulitis: Status: Acute (9) RAI (acute kidney injury): Status: Acute (10) Acute exacerbation of CHF (congestive heart failure): Status: Acute Additional A&P Information Sepsis related to cellulitis Sepsis criteria met with tachycardia, leukocytosis No signs of septic shock Continue broad-spectrum antibiotics No drainable abscess as per the imaging Check CRP, ESR no signs of osteomyelitis He is diabetic he would need outpatient podiatry Check arterial duplex and venous Doppler Check A1c level non purulent cellulitis Hematuria We will request CT abdomen pelvis to rule out kidney stone Patient does have history of prostate cancer which was treated with radiotherapy 10 years ago A. fib RVR Continue AV christie blocking agent Hold anticoagulating agent because of hematuria Preserve ejection fraction acute exacerbation Preserved ejection fraction as per the echo, last year stress test negative No active chest pain Secondary to sepsis judicious use of fluids and diuretics RAI related to cardiorenal DVT prophylaxis: SCDs Consistent carb diet Sliding scale with Lantus Full code Attestations Medical Necessity Statement*: >2midnight required for the cellulitis and sepsis Time Spent in Patient Care: Greater than 35 minutes Coding Level of Care Code Acute Coiled Coil Inspector for g Fwd Diagnoses Sepsis A41.9 Sepsis acute organ dysfunction status: without acute organ dysfunction Sepsis type: sepsis due to unspecified organism Lumbar stenosis with neurogenic claudication M48.062 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 mellitus E11.40 Atrial fibrillation with RVR I48.91 Abrasion of left lower leg with infection S80.812A; L08.9 HTN (hypertension) I10 Diabetic foot ulcer E11.621; L97.509 Cellulitis L03.90 RAI (acute kidney injury) N17.9 Acute exacerbation of CHF (congestive heart failure) I50.9
[2021-08-23 16:38] LABS: Procalcitonin 0.47 ng/mL (0-0.5)
[2021-08-23 17:02] LABS: D Dimer 0.51 ug/mIFEU (0-0.59)
[2021-08-23 17:33] LABS: Lactic Acid level (Lactate) 1.8 mmol/L (0.5-2.2)
--- NOTE | 2021-08-23 18:48 | CTR_ITS ---
PROCEDURE INFORMATION: Exam: CT Abdomen And Pelvis Without Contrast Exam date and time: 08/23/2021 6:48 PM Age: 71 years old Clinical indication: Patient HX: HX of prostate CA C/O hematuria TECHNIQUE: Imaging protocol: Computed tomography of the abdomen and pelvis without contrast. Radiation optimization: All CT scans at this facility use at least one of these dose optimization techniques: automated exposure control; mA and/or kV adjustment per patient size (includes targeted exams where dose is matched to clinical indication); or iterative reconstruction. COMPARISON: CR Hip 2-3v RIGHT wwo Pelv* [id number] 02/07/2017 12:21 PM RADIATION DOSE METRICS: Total DLP (mGy-cm): 1854.67 FINDINGS: Lungs: There is mild bronchiectasis and peribronchial thickening that may reflect mild bronchitis. There is subpleural atelectasis of the dependent portions of the lungs. Heart: There is a small pericardial fluid collection present. Liver: There is a diffuse decrease in hepatic parenchymal density, consistent with fatty infiltration. There is a 10 mm hypodensity in the liver image 13 that is not fully characterized on this noncontrast study. The remainder of the liver is homogeneous with mild fatty infiltration and a few scattered calcified granulomata. Gallbladder and bile ducts: The gallbladder demonstrates layering density consistent with noncalcified stones or sludge. There is no common bile duct dilation. There is no wall thickening or pericholecystic fluid to suggest cholecystitis. Pancreas: The pancreas is normal. Spleen: The spleen is normal. Adrenal glands: There is multilobulated benign adenomatous enlargement of the adrenal glands. Kidneys and ureters: There is nonobstructive nephrolithiasis with the largest calculus on the left measuring 11 mm and the largest calculus on the right measuring 2 mm. There is symmetric mild nonspecific perinephric fat stranding. There is no evidence of hydronephrosis. No calculi are identified in the ureters or bladder. Stomach and bowel: There is no evidence of intestinal perforation or obstruction. Extensive diverticulosis is present in the distal colon. There is no evidence of colitis/diverticulitis. Appendix: A normal appendix is identified. Intraperitoneal space: Unremarkable. No free air. No significant fluid collection. Vasculature: The aorta demonstrates moderate atherosclerotic calcification. There are numerous benign phleboliths in the pelvis. Lymph nodes: Unremarkable.No enlarged lymph nodes. Urinary bladder: There is nonspecific bladder wall thickening. This may be related to cystitis and/or incomplete distention. The bladder is also moderately distended. Reproductive: The prostate demonstrates moderate nonspecific enlargement. The seminal vesicles are normal. Postoperative changes of a probable TURP procedure are noted. Bones/joints: There are moderate to severe degenerative changes in the spine. There is marked disc space narrowing with a vacuum disc and retrolisthesis of L2 on L3 and less prominently at L3 on L4. Very mild degenerative anterolisthesis of L4 on L5 is noted. There is no acute bony abnormality. There is moderate to severe stenosis of the spinal canal and foramina at L4-L5 due to marked bony proliferative changes. There is a laminectomy defect at this level. Soft tissues: Small bilateral fat filled inguinal hernias are noted. There is diffuse induration of the subcutaneous fat and mesenteric fat compatible with anasarca type changes. CT/CT abdomen pelvis wo con [id number] IMPRESSION: 1. No calculi are identified in the ureters or bladder. No hydronephrosis. There is bilateral nephrolithiasis. 2. There is prostatomegaly with nonspecific bladder wall thickening that may reflect chronic outlet obstructive type changes and or cystitis. The bladder is moderately distended. Please correlate if the patient is having difficulty voiding. 3. There is diffuse induration of the subcutaneous fat and mesenteric fat compatible with anasarca type changes. Radiation Dose CTDIVOL = (mGy): DLP = 1854.67 (mGy-cm)
--- NOTE | 2021-08-23 19:08 | ECG_ITS ---
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 Measurements Intervals [place] Rate: 99 P: 112 [place]: 205 QRS: 87 QRSD: 136 T: 25 QT: 357 QTc: 460 Interpretive Statements SINUS RHYTHM WITH OCCASIONAL VENTRICULAR PREMATURE COMPLEXES RIGHT BUNDLE BRANCH BLOCK [120+ ms QRS DURATION, UPRIGHT V1, 40+ ms S IN I/aVL/V4/V5/V6] Compared to ECG 08/23/2021 18:00:24 Ventricular premature complex(es) now present Sinus tachycardia no longer present First degree AV block no longer present Electronically Signed On 08-24-2021 22:07:40 A P SUPERVISOR by Meghan Valles M.D. [id number]
[2021-08-23 19:26] VITALS: BP 144/78; PULSE 102; RESP 18; TEMP 37.6; O2SAT 93
--- NOTE | 2021-08-23 19:50 | PC.NURSE ---
Report called to floor, given to RN. Gustavo Hong will be getting pt but was unable to take report
[2021-08-23 20:15] LABS: Troponin 5 6HR 25.22 ng/L (0-15)
[2021-08-23 20:18] LABS: Troponin 5 6HR Delta -4.78 ng/L (0-12)
[2021-08-23 20:30] LABS: Estmated Average Glucose 212
[2021-08-23] MEDS: piperacillin-tazobactam 3.375 GM in sodium chloride 0.9% (plus) 50 ML IV (21:14)
[2021-08-23] MEDS: sodium chloride 0.9% 1,000 ML 75 ML IV (21:14)
[2021-08-23] MEDS: gabapentin 300 mg Capsule 600 MG PO (21:15)
[2021-08-23 21:16] LABS: Bilirubin Urine Neg (Negative); Blood Urine 3+ (Negative); Glucose Urine UA 4+ (Normal); Ketones Urine 1+ (Negative); Nitrate Urine Negative (Negative); Protein Urine 1+ (Negative); Specific Gravity, Urine 1.015 (1.005-1.030); Urine Color Yellow (Yellow); Urobilinogen Urine Norm (Negative); pH Urine 5 (5-7)
[2021-08-23 21:17] LABS: Add Urine Microscopic? YES; Leukocyte Esterase Urine 1+ (Negative)
[2021-08-23 21:30] LABS: Glucose Point of Care 299 mg/dL (70-110)
[2021-08-23 21:36] LABS: Add Urine Culture? Yes; Bacteria Urine 4+ /hpf; RBC Urine TOO NUMEROUS TO CNT /hpf (0-2); WBC Urine TOO NUMEROUS TO CNT /hpf (0-5)
[2021-08-23] MEDS: insulin lispro 100 unit/1 mL SUBCUT (22:28)
[2021-08-23] MEDS: insulin glargine 100 units/1 mL 75 UNIT SUBCUT (22:28)
[2021-08-24] MEDS: piperacillin-tazobactam 3.375 GM in sodium chloride 0.9% (plus) 50 ML IV ×3 (05:51→21:18)
[2021-08-24 06:39] LABS: Basophils # 0.1 10^3/uL (0.0-0.1); Basophils % 0.5 %; Eosinophils # 0.1 10^3/uL (0.0-0.8); Eosinophils % 0.4 %; Hematocrit 34.8 % (42.0-52.0); Hemoglobin 11.2 g/dL (11.7-16.6); Lymphocytes # 2.2 10^3/uL (0.8-4.8); Lymphocytes % 11.9 %; Mean Corpuscular HGB Conc 32.2 g/dL (30.0-36.0); Mean Corpuscular Hemoglobin 30.8 pg (28.0-34.0); Mean Corpuscular Volume 95.6 fl (80-94); Mean Platelet Volume 10.6 fL (7.4-10.4); Monocytes # 1.5 10^3/uL (0.2-0.9); Monocytes % 8.4 %; Neutrophils # 14.28 10^3/uL (1.8-7.7); Nucleated Red Blood Cells % 0 %; Platelet Count 231 10^3/cmm (130-400); Red Blood Count 3.64 10^6/uL (4.1-5.3); Red Cell Distribution Width 13.8 % (12.1-15.1); White Blood Count 18.3 10^3/uL (4.0-10.0)
[2021-08-24 07:00] LABS: Anion Gap 15.8 (5-19); Blood Urea Nitrogen 18 mg/dL (8-23); C Reactive Protein 320.7 mg/L (0.0-4.9); Calcium 8.7 mg/dL (8.5-10.5); Carbon Dioxide 24 mmol/L (22-29); Chloride 97 mmol/L (98-107); Glucose 246 mg/dL (65-115); Magnesium 1.8 mg/dL (1.7-2.3); Osmolality Calculated 286 mOsm/kg (285-295); Potassium 3.8 mmol/L (3.5-5.1); Sodium 133 mmol/L (136-145)
[2021-08-24 07:10] LABS: Glucose Point of Care 252 mg/dL (70-110)
[2021-08-24 08:00] VITALS: BP 159/84; PULSE 87; RESP 16; TEMP 36.6; O2SAT 92
[2021-08-24] MEDS: digoxin 250 mcg Tablet PO (08:44)
[2021-08-24] MEDS: sotalol 80 mg Tablet PO ×2 (08:44→17:45)
[2021-08-24] MEDS: gabapentin 300 mg Capsule 600 MG PO ×3 (08:44→21:16)
[2021-08-24] MEDS: sennosides-docusate Tablet 1 TAB PO (08:44)
[2021-08-24] MEDS: insulin lispro 100 unit/1 mL SUBCUT ×3 (08:45→17:45)
[2021-08-24 11:04] LABS: Glucose Point of Care 315 mg/dL (70-110)
[2021-08-24 11:28] VITALS: BP 140/72; PULSE 82; RESP 18; TEMP 36.9; O2SAT 95
--- NOTE | 2021-08-24 12:11 | CTR_ITS ---
PROCEDURE INFORMATION: Exam: CT Left Lower Extremity With Contrast; Lower Leg Exam date and time: 08/24/2021 12:11 PM Age: 71 years old Clinical indication: Swelling, leg or foot TECHNIQUE: Imaging protocol: CT of the Left lower extremity with intravenous contrast was performed. Exam focused on the lower leg. Radiation optimization: All CT scans at this facility use at least one of these dose optimization techniques: automated exposure control; mA and/or kV adjustment per patient size (includes targeted exams where dose is matched to clinical indication); or iterative reconstruction. Contrast material: OMNI 300; Contrast volume: 95 ml; Contrast route: INTRAVENOUS (IV); COMPARISON: CR XR foot LT 2V [id number] 08/23/2021 2:04 PM RADIATION DOSE METRICS: Total DLP (mGy-cm): 931.26 FINDINGS: Bones/joints: Normal. No acute fracture or dislocation. Soft tissues: Subcutaneous edema. CT/CT lower leg LT w con [id number] IMPRESSION: No acute abnormality. Radiation Dose CTDIVOL = (mGy): DLP = 931.26 (mGy-cm)
--- NOTE | 2021-08-24 12:11 | CTR_ITS ---
PROCEDURE INFORMATION: Exam: CT Left Lower Extremity With Contrast, Foot Exam date and time: 08/24/2021 12:11 PM Age: 71 years old Clinical indication: Swelling, leg or foot TECHNIQUE: Imaging protocol: CT of the Left lower extremity with intravenous contrast was performed. Exam focused on the foot. Radiation optimization: All CT scans at this facility use at least one of these dose optimization techniques: automated exposure control; mA and/or kV adjustment per patient size (includes targeted exams where dose is matched to clinical indication); or iterative reconstruction. Contrast material: OMNI 300; Contrast volume: 95 ml; Contrast route: INTRAVENOUS (IV); COMPARISON: CR XR foot LT 2V [id number] 08/23/2021 2:04 PM RADIATION DOSE METRICS: Total DLP (mGy-cm): 307.01 FINDINGS: Bones/joints: Normal. No acute fracture or dislocation. Soft tissues: Soft tissue emphysema on the plantar aspect of the 1st, 2nd and 3rd digits and around proximal phalanx of the big toe. Soft tissue emphysema extends over the dorsum of the foot up to the tarsal bones. Soft tissue edema. Skin thickening on the plantar aspect of the big toe. No discrete fluid collections. CT/CT foot LT w con [id number] IMPRESSION: Soft tissue edema and emphysema over the plantar aspect of the 1st 3 digits and over the dorsum of the foot. No discrete fluid collections. Radiation Dose CTDIVOL = (mGy): DLP = 307.01 (mGy-cm)
[2021-08-24] MEDS: iohexol 300 mg/mL 100 mL Btl IV (14:14)
[2021-08-24] MEDS: vancomycin 1,500 MG/300 ML PIGGYBACK 200 MG IV (15:09)
--- NOTE | 2021-08-24 15:34 | PM.PN ---
Subjective Subjective: Interval history: Is endorsing feeling better, will request CT foot and leg to rule out osteomyelitis, venous Doppler and arterial Doppler studies are pending CT abdomen pelvis consistent with nephrolithiasis, no recurrence of hematuria Hemoglobin stable Urinalysis consistent with UTI Vitals/I&O/Wt Last Vital Signs Temp 98.4 F 08/24/21 11:28 Pulse 82 08/24/21 11:28 Resp 18 08/24/21 11:28 BP 140/72 08/24/21 11:28 Pulse Ox 95 08/24/21 11:28 08/24/21 08/24/21 08/24/21 06:59 14:59 22:59 Intake Total 290 / 1690 410 / 410 Output Total 1800 / 1800 Balance 290 / 1690 -1390 / -1390 Weight last 48 hrs Weight 103.873 kg Physical Exam Narrative: EXAM NARRATIVE: Patient laying comfortably in his bed Saturating well on room air No audible stridor or wheezing S1, S2 Abdomen soft Lower extremity hyperemia of left leg seems to be improved around ankle and anterior carroll area however left great toe is more swollen no active signs of cyanosis Foot is warm Trace edema of leg Villanueva catheter draining concentrated urine EOMI, PERRLA Urinary Catheter Management^: Villanueva: Cath Placed During This Visit: yes Reason for Continuing Indwelling Catheter: Acute Urinary Retention or Obstruction Urinary Catheter Date of Insertion: 08/23/21 Urinary Catheter Time of Insertion: 20:45 Data : 08/24/21 05:53 08/24/21 05:53 Micro: Microbiology 08/23/21 13:53 Blood Culture - Preliminary Blood NEGATIVE TO DATE 08/23/21 13:47 Blood Culture - Preliminary Blood NEGATIVE TO DATE A&P Assessment and plan (1) Acute exacerbation of CHF (congestive heart failure): Status: Acute (2) RAI (acute kidney injury): Status: Acute (3) Cellulitis: Status: Acute (4) Diabetic foot ulcer: Status: Acute (5) Sepsis: Status: Acute Qualifiers: Sepsis acute organ dysfunction status: without acute organ dysfunction Sepsis type: sepsis due to unspecified organism Qualified Code(s): A41.9 - Sepsis, unspecified organism (6) Lumbar stenosis with neurogenic claudication: Status: Acute (7) 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 mellitus: Status: Acute Additional A&P Information Sepsis Related to nonpurulent cellulitis UTI Nephrolithiasis Continue broad-spectrum antibiotics Afebrile Leukocytosis trending down clinically later will request CT scan of foot and leg CHF exacerbation Discontinue fluids today Edema of legs seems to be improved however I have not used any diuretics since admission, RAI: Creatinine improved with fluid resuscitation Fluids were given due to sepsis Hematuria: Nephrolithiasis, no hydronephrosis no signs of obstruction, no recurrence of hematuria, in case of recurrence of hematuria will request Dr. Paul consult however for now he is afebrile, leukocytosis improving No flank pain, creatinine has normalized History of prostate cancer and radiotherapy about 10 years ago A. 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
[2021-08-24] MEDS: sodium chloride 0.9% 1,000 ML 75 ML IV (15:43)
[2021-08-24 16:00] VITALS: BP 159/88; PULSE 81; RESP 17; TEMP 36.7; O2SAT 92
[2021-08-24 17:14] LABS: Glucose Point of Care 256 mg/dL (70-110)
--- NOTE | 2021-08-24 17:54 | USCV_ITS ---
Raphael Deal Age: 71 Gender: M : 1950 Exam Date: 08/24/2021 07:00 Ordering Phys: Carol Juarez MD Technologist: Neyda Sofia Exam Location: [facility] [place] Indication: Swelling HISTORY: Lower extremity swelling. PROCEDURES: Comparison: none available. Venous duplex imaging was performed in bilateral lower extremities. The following venous structures were evaluated: common femoral vein, profunda vein, proximal portion of the greater saphenous vein, superficial femoral vein, and the popliteal vein. In addition, the posterior tibial and peroneal trunk were evaluated. Serial compression, augmentation maneuvers, and spectral Doppler flow evaluation were performed. FINDINGS: No evidence of DVT seen in any vessel visualized at this time. The veins were found to be easily compressible with spontaneous blood flow. Non pulsatile flow pattern. CONCLUSIONS No evidence of DVT in the above-mentioned identifiable veins. Dr Meghan Valles MD [facility] (Electronically Signed) Final Date: 24 August 2021 19:27 S
[2021-08-24 20:00] VITALS: BP 131/75; PULSE 76; RESP 17; TEMP 37; O2SAT 91
--- NOTE | 2021-08-24 20:29 | USCV_ITS ---
AlonaRaphael acharya Age: 71 Gender: M : 1950 Exam Date: 08/24/2021 07:01 Ordering Phys: Carol Juarez MD Technologist: Neyda Sofia [place] [facility] [place]: Ulcer Risk Factors: Previous Vascular Surgery: RIGHT LEFT Waveform Velocity (cm/s) Velocity (cm/s) Waveform Triphasic 97.3 Iliac Prox 107.3 Triphasic Triphasic 111.7 Iliac Mid 93.5 Triphasic Triphasic 110.4 Iliac Distal 110.6 Triphasic Triphasic 98.6 GUIDANCE SERVICES COORDINATOR 76.2 Triphasic Triphasic 106.5 SFA Prox 106.5 Triphasic Triphasic 123.6 SFA Mid 102.5 Triphasic Triphasic 111.7 SFA Dist 98.6 Triphasic Triphasic 106.5 POP 129.5 Triphasic Triphasic 111.7 SCHEDULING REPRESENTATIVE 197.2 Monophasic Triphasic 57.2 DPA FINDINGS See measurements listed above. Patent femoral, popliteal, and infrapopliteal vessels bilaterally The right dorsalis pedis artery was not visualized, because of the bandages Elevated velocity in the left posterior tibial artery Mild diffuse plaques are noted in the iliac and femoral arteries bilaterally CONCLUSIONS Patent arteries bilaterally in the lower extremities Slightly elevated velocity and abnormal Doppler waveform in the left posterior tibial artery, may suggest less than 60% stenosis. Left dorsalis pedis artery could not be visualized due to bandages Otherwise no significant arterial obstruction, based on the above findings Dr Meghan Valles MD [facility] (Electronically Signed) Final Date: 24 August 2021 19:22 S
[2021-08-24 21:17] LABS: Glucose Point of Care 267 mg/dL (70-110)
[2021-08-24 21:29] VITALS: PULSE 80; RESP 16; O2SAT 92
[2021-08-25] VITALS (7 sets, daily range): BP systolic 151–172; BP diastolic 69–93; PULSE 67–88; RESP 16–24; TEMP 36.7–37.2; O2SAT 91–94
[2021-08-25] MEDS: piperacillin-tazobactam 3.375 GM in sodium chloride 0.9% (plus) 50 ML IV ×2 (05:03→12:43)
[2021-08-25 05:29] LABS: Basophils # 0.1 10^3/uL (0.0-0.1); Basophils % 0.6 %; Eosinophils # 0.7 10^3/uL (0.0-0.8); Eosinophils % 4.2 %; Hematocrit 34.7 % (42.0-52.0); Hemoglobin 11.2 g/dL (11.7-16.6); Lymphocytes # 2.2 10^3/uL (0.8-4.8); Lymphocytes % 13.4 %; Mean Corpuscular HGB Conc 32.3 g/dL (30.0-36.0); Mean Corpuscular Hemoglobin 30.4 pg (28.0-34.0); Mean Corpuscular Volume 94.3 fl (80-94); Mean Platelet Volume 10.9 fL (7.4-10.4); Monocytes # 1.4 10^3/uL (0.2-0.9); Monocytes % 8.1 %; Neutrophils # 12.11 10^3/uL (1.8-7.7); Neutrophils % 73.1 %; Nucleated Red Blood Cells % 0 %; Platelet Count 271 10^3/cmm (130-400); Red Blood Count 3.68 10^6/uL (4.1-5.3); Red Cell Distribution Width 13.5 % (12.1-15.1); White Blood Count 16.6 10^3/uL (4.0-10.0)
[2021-08-25 05:47] LABS: Procalcitonin 0.52 ng/mL (0-0.5)
[2021-08-25 06:01] LABS: Anion Gap 17.9 (5-19); Blood Urea Nitrogen 17 mg/dL (8-23); Calcium 8.6 mg/dL (8.5-10.5); Carbon Dioxide 24 mmol/L (22-29); Chloride 97 mmol/L (98-107); Glucose 255 mg/dL (65-115); Osmolality Calculated 290 mOsm/kg (285-295); Potassium 3.9 mmol/L (3.5-5.1); Sodium 135 mmol/L (136-145)
[2021-08-25 07:08] LABS: Glucose Point of Care 264 mg/dL (70-110)
[2021-08-25] MEDS: gabapentin 300 mg Capsule 600 MG PO ×3 (08:36→21:54)
[2021-08-25] MEDS: insulin lispro 100 unit/1 mL SUBCUT ×3 (08:37→17:36)
[2021-08-25] MEDS: digoxin 250 mcg Tablet PO (08:37)
[2021-08-25] MEDS: sennosides-docusate Tablet 1 TAB PO (08:37)
[2021-08-25] MEDS: sotalol 80 mg Tablet PO ×2 (08:37→17:20)
[2021-08-25 11:21] LABS: Glucose Point of Care 275 mg/dL (70-110)
--- NOTE | 2021-08-25 14:22 | PM.PN ---
Subjective Subjective: Interval history: Was seen and examined this morning he is endorsing feeling better, no signs of osteomyelitis of foot No signs of DVT no signs of arterial ischemia Leukocytosis improving he has stayed afebrile He will need offloading boot before discharge, podiatry follow-up Vitals/I&O/Wt Last Vital Signs Temp 98.3 F 08/25/21 11:27 Pulse 67 08/25/21 11:27 Resp 16 08/25/21 11:27 BP 151/86 08/25/21 11:27 Pulse Ox 92 08/25/21 11:27 08/24/21 08/25/21 08/25/21 22:59 06:59 14:59 Intake Total 670 / 2080 250 / 2330 290 / 290 Balance 670 / 280 250 / 530 290 / 290 Physical Exam Narrative: EXAM NARRATIVE: Patient was laying comfortably in his bed Hyperemia of right leg has improved I have demarcated the area as well Foot looks less swollen No signs of crepitation Nonpurulent cellulitis S1, S2 Abdomen soft Breathing well on saturating well on room air No acute respiratory distress EOMI, PERRLA nonfocal neuro exam Urinary Catheter Management^: Villanueva: Cath Placed During This Visit: yes Reason for Continuing Indwelling Catheter: Other Urinary Catheter Date of Insertion: 08/23/21 Urinary Catheter Time of Insertion: 20:45 Data : 08/25/21 04:04 08/25/21 04:04 Micro: Microbiology 08/23/21 19:00 Urine Culture - Preliminary Urine Catheterized 08/23/21 13:53 Blood Culture - Preliminary Blood NEGATIVE TO DATE 08/23/21 13:47 Blood Culture - Preliminary Blood NEGATIVE TO DATE A&P Assessment and plan (1) Acute exacerbation of CHF (congestive heart failure): Status: Acute (2) RAI (acute kidney injury): Status: Acute (3) Cellulitis: Status: Acute (4) Diabetic foot ulcer: Status: Acute (5) Sepsis: Status: Acute Qualifiers: Sepsis acute organ dysfunction status: without acute organ dysfunction Sepsis type: sepsis due to unspecified organism Qualified Code(s): A41.9 - Sepsis, unspecified organism (6) Lumbar stenosis with neurogenic claudication: Status: Acute (7) 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 mellitus: Status: Acute (8) Atrial fibrillation: Status: Acute (9) HTN (hypertension): Status: Acute Additional A&P Information Sepsis secondary to nonpurulent cellulitis Cultures sterile Afebrile Leukocytosis improving Continue broad-spectrum antibiotics Will need offloading boot No signs of DVT or arterial ischemia CT scan is showing emphysematous changes without any collection of fluid no drainable abscess No signs of crepitation on physical exam Hyperemia seems to be improving Might benefit from podiatry consult on Thursday Acute CHF exacerbation Discontinue IV fluids, start low-dose diuretics today A. fib: Not in RVR, rate controlled, at home he takes Xarelto which I would continue Hematuria No recurrence of hematuria in the hospital, nephrolithiasis nonobstructive no signs of hydronephrosis creatinine improved with IV fluids will need outpatient follow-up Previous history of prostate cancer which was treated with radiotherapy, check PSA level Consistent carb diet DVT prophylaxis: Xarelto Full code Anticipating discharge after podiatry consult on Thursday, may benefit from Augmentin and doxycycline for MRSA and polymicrobial coverage, cultures are sterile Attestations Medical Necessity Statement*: Plan to discharge in next 24 hours Time Spent in Patient Care: less than 15 minutes Coding Level of Care Code 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
[2021-08-25 16:10] LABS: Prostate Specific Antigen 0.507 ng/mL (0-4)
[2021-08-25] MEDS: amoxicillin-clav 875-125 mg Tablet 1 TAB PO (17:20)
[2021-08-25] MEDS: doxycycline 100 mg Tablet PO (17:21)
[2021-08-25 17:23] LABS: Glucose Point of Care 242 mg/dL (70-110)
[2021-08-25 21:07] LABS: Glucose Point of Care 252 mg/dL (70-110)
[2021-08-25] MEDS: insulin glargine 100 units/1 mL 10 UNIT SUBCUT (21:55)
[2021-08-26] VITALS (9 sets, daily range): BP systolic 137–177; BP diastolic 78–91; PULSE 67–78; RESP 16–18; TEMP 36.4–36.9; O2SAT 92–96
[2021-08-26 03:56] LABS: Basophils # 0.1 10^3/uL (0.0-0.1); Basophils % 0.6 %; Eosinophils # 0.9 10^3/uL (0.0-0.8); Eosinophils % 5.3 %; Hematocrit 37.6 % (42.0-52.0); Hemoglobin 11.9 g/dL (11.7-16.6); Lymphocytes # 2.5 10^3/uL (0.8-4.8); Lymphocytes % 15.1 %; Mean Corpuscular HGB Conc 31.6 g/dL (30.0-36.0); Mean Corpuscular Hemoglobin 30.3 pg (28.0-34.0); Mean Corpuscular Volume 95.7 fl (80-94); Mean Platelet Volume 10.5 fL (7.4-10.4); Monocytes # 1.3 10^3/uL (0.2-0.9); Neutrophils # 11.45 10^3/uL (1.8-7.7); Neutrophils % 70.4 %; Nucleated Red Blood Cells % 0 %; Platelet Count 307 10^3/cmm (130-400); Red Blood Count 3.93 10^6/uL (4.1-5.3); Red Cell Distribution Width 13.3 % (12.1-15.1); White Blood Count 16.3 10^3/uL (4.0-10.0)
[2021-08-26 04:25] LABS: Blood Urea Nitrogen 18 mg/dL (8-23); Calcium 8.3 mg/dL (8.5-10.5); Carbon Dioxide 22 mmol/L (22-29); Chloride 99 mmol/L (98-107); Glucose 258 mg/dL (65-115); Osmolality Calculated 293 mOsm/kg (285-295); Sodium 136 mmol/L (136-145)
[2021-08-26 04:30] LABS: Anion Gap 19.2 (5-19); Potassium 4.2 mmol/L (3.5-5.1)
[2021-08-26 06:22] LABS: Glucose Point of Care 262 mg/dL (70-110)
[2021-08-26] MEDS: insulin lispro 100 unit/1 mL SUBCUT ×3 (09:10→18:12)
[2021-08-26] MEDS: digoxin 250 mcg Tablet PO (09:10)
[2021-08-26] MEDS: FUROsemide 20 mg Tablet PO (09:11)
[2021-08-26] MEDS: doxycycline 100 mg Tablet PO (09:11)
[2021-08-26] MEDS: sotalol 80 mg Tablet PO ×2 (09:11→18:12)
[2021-08-26] MEDS: gabapentin 300 mg Capsule 600 MG PO ×3 (09:11→21:37)
[2021-08-26] MEDS: amoxicillin-clav 875-125 mg Tablet 1 TAB PO (09:11)
[2021-08-26] MEDS: rivaroxaban 10 mg Tablet 20 MG PO (09:11)
--- NOTE | 2021-08-26 09:49 | PC.CHAP ---
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 testing engineer visit [] Patient/Family/Request visit [] Outpatient visit [] Follow-up visit [] Physician referral [] Code/Alert [x] Routine visit [] Staff referral [] Actively dying [] Patient sleeping [] Family support [] [] Out of room [] Palliative care [] [] Receiving care in room [] Pre-surgical visit [] Trauma [] Long length of stay [] ICU visit [] Other: Relational/Emotional Strength x[x] Patient feels connected with others/family/visitors/staff [] Distress [] Loneliness/isolation [] Abandonment Spirituality of Patient [x] Person of Melva [] Attends Church of their Melva x[x] Believes in Prayer [] Reads Bible or Shinto materials [] There are Spiritual issues to be addressed Dressing Room Porter Interventions [x] Prayer [x]x Active listening [x] Non-anxious presence [x] Spiritual/emotional support [] Crisis/trauma care [x] Spiritual counseling [] Bereavement support [] Provided bereavement packet [] Provided Bible/devotional materials [] Provided toy/stuffed animal, coloring book to patient or family member [] Provided Communion [] Anointing/[place] [x] Salvation [x] Completed spiritual assessment [] Other: Impact on Illness or Injury [] Angry [] Fearful [] Anxious [] Often cries [] Exhaustion [] Unable to work [] Unable to attend taoism [] Unable to walk/stand [] Unable to read [] Unable to drive [] Unable to eat/drink [] Unable to sleep [] Unable to be with family [] Patient intubated [] Other: Summary patient has stomach pain Time spent with patient 20 min
--- NOTE | 2021-08-26 11:07 | PC.SOCIAL ---
IMM Update IMM updated with patient. Copy Pg 2 provided. Initialled, dated, timed, and placed in chart.
[2021-08-26 11:34] LABS: Erythrocyte Sedimentation Rate 51 mm/hr (0-10)
[2021-08-26 11:34] LABS: Glucose Point of Care 219 mg/dL (70-110)
--- NOTE | 2021-08-26 12:07 | PM.CONSULT ---
Providers/Reason For Consult Consulting Physician/Specialty*: Arnaldo Johns; orthopedic surgery Reason for Consult*: Cellulitis left foot Attending Physician: Carol Juarez MD Primary Care Provider: Trisha Urena MD History of Present Illness History of Present Illness Raphael Deal is a 71 year old male who was admitted on 08/23/2021 with progressive swelling and erythema of the left foot. He has a history of approximately 2 weeks of bilateral lower extremity swelling. He is diabetic with peripheral neuropathy and recalls no trauma. Apparently over the days prior to admission was noted to have increased left foot pain and swelling. He was admitted to our hospital with a diagnoses of cellulitis. Work-ups IV antibiotics consisting of Zosyn and vancomycin. Orthopedics is consulted today. Meds/Allergies Home Medications and Allergies Home Medications Medication Instructions Recorded Confirmed Last Taken Type cholecalciferol (vitamin D3) 25 3,000 unit PO DAILY 11/07/19 08/23/21 03/19/21 History mcg (1,000 unit) capsule digoxin 250 mcg (0.25 mg) tablet 250 mcg PO DAILY 11/07/19 08/23/21 03/19/21 History insulin aspart U-100 100 unit/mL 30 unit SUBCUT BID 11/07/19 08/23/21 03/19/21 History (3 mL) subcutaneous pen omega-3 fatty acids 1,000 mg 1,000 mg PO BID 11/07/19 08/23/21 03/19/21 History capsule rivaroxaban 20 mg tablet 20 mg PO DAILY 11/07/19 08/23/21 03/16/21 History Pain Relieving (m-salic-men) See Rx Instructions .ROUTE .COMPLEX 05/07/20 08/23/21 Unknown History fluticasone propionate [Flonase 2 spray INTRANASAL DAILY PRN 05/07/20 08/23/21 Unknown History Allergy Relief] furosemide [Lasix] See Rx Instructions .ROUTE .COMPLEX 05/07/20 08/23/21 08/22/21 History gabapentin 800 mg PO TID 05/07/20 08/23/21 03/19/21 History ibuprofen 600 mg PO Q4H PRN 05/07/20 08/23/21 Unknown History rosuvastatin [Crestor] 20 mg PO QPM 05/07/20 08/23/21 03/19/21 History sotalol 80 mg PO BID 05/07/20 08/23/21 03/19/21 History water aerobics #1 ea 05/09/21 08/23/21 Unknown Rx lisinopril 40 mg tablet 40 mg PO DAILY #30 tab 06/12/21 08/23/21 Unknown Rx cinnamon bark [Cinnamon] 1,500 mg PO DAILY 08/23/21 08/23/21 Unknown History hydrocodone-acetaminophen 1 tab PO BID PRN 08/23/21 08/23/21 Unknown History insulin glargine [Lantus Solostar 80 unit SUBCUT BID 08/23/21 08/23/21 08/23/21 09:00 History U-100 Insulin] metformin 1,000 mg PO BID 08/23/21 08/23/21 Unknown History Allergies Allergy/AdvReac Type Severity Reaction Status Date / Time No Known Allergies Allergy Verified 08/23/21 15:26 Current Medications Current Medications Generic Name Dose Route Start Last Admin Trade Name Freq PRN Reason Stop Dose Admin Amoxicillin/Clavulanate Potassium 1 tab 08/25/21 18:00 08/26/21 09:11 Amoxicillin-Clav 875-125 Mg Tablet PO 1 tab BID ROSALBA Administration Protocol Digoxin 250 mcg 08/24/21 09:00 08/26/21 09:10 Digoxin 250 Mcg Tablet PO 250 mcg DAILY ROSALBA Administration Doxycycline Monohydrate 100 mg 08/25/21 18:00 08/26/21 09:11 Doxycycline 100 Mg Tablet PO 100 mg BID ROSALBA Administration Protocol Furosemide 20 mg 08/26/21 08:00 08/26/21 09:11 Furosemide 20 Mg Tablet PO 20 mg DAILY@0800 ROSALBA Administration Gabapentin 600 mg 08/23/21 21:00 08/26/21 09:11 Gabapentin 300 Mg Capsule PO 600 mg TID ROSALBA Administration Insulin Glargine 10 unit 08/25/21 21:00 08/25/21 21:55 Insulin Glargine 100 Units/1 Ml SUBCUT 10 unit BEDTIME ROSALBA Administration Insulin Human Lispro 0 unit 08/23/21 20:26 08/26/21 09:10 Insulin Lispro 100 Unit/1 Ml SUBCUT 10 unit TIDWM ROSALBA Administration Protocol Rivaroxaban 20 mg 08/26/21 09:00 08/26/21 09:11 Rivaroxaban 10 Mg Tablet PO 20 mg DAILY ROSALBA Administration Senna/Docusate Sodium 1 tab 08/24/21 09:00 08/26/21 11:35 Sennosides-Docusate Tablet PO Not Given DAILY ROSALBA Sotalol HCl 80 mg 08/24/21 09:00 08/26/21 09:11 Sotalol 80 Mg Tablet PO 80 mg BID ROSALBA Administration PFSH Acute PFSH: Medical History (Updated 08/26/21 @ 12:18 by Arnaldo Johns MD) Anticoagulation adequate with anticoagulant therapy Xarelto Atrial fibrillation Chronic anticoagulation Diabetes 1.5, managed as type 2 Diabetic neuropathy H/O prostate cancer HTN (hypertension) Low back pain Lumbar stenosis with neurogenic claudication Obstructive sleep apnea Refuses CPAP Surgical History (Updated 08/23/21 @ 17:50 by Carol Juarez MD) History of back surgery History of pilonidal cyst S/P appendectomy S/P tonsillectomy Family History Grandmother Cancer MATERNAL Diabetes Grandfather Hypertension MATERNAL Diabetes Social History Smoking and tobacco status: former smoker Alcohol intake: never Household members: children Marital status: service: Yes branch: [employer] 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 He has erythremia and swelling of his first_third toes with swelling and erythema extending up to the hindfoot. There is areas of super Abel blistering about the big toe. He is tender over the plantar aspect of the foot, he has subjective diminished sensation in both feet consistent with his neuropathy. He will flex extend his toes on the left although is somewhat limited due to to pain. Urinary Catheter Management^: Villanueva: Cath Placed During This Visit: yes Reason for Continuing Indwelling Catheter: Other Urinary Catheter Date of Insertion: 08/23/21 Urinary Catheter Time of Insertion: 20:45 Data Micro: Micro: Microbiology 08/23/21 13:47 Blood Culture - Pr eliminary Blood Staphylococcus sp coag neg 08/23/21 19:00 Urine Culture - Fi nal Urine Catheterize d Imaging^: Xray Ortho: My impression: 3 views of the left foot are personally interpreted dated 08/23/2021. I see no destructive processes of bone. Other CT: My impression: I reviewed images of the left foot dated 08/24/2021. There is soft tissue swelling but no bony destruction. Some emphysematous changes seen about the first toe. No focal fluid collections are noted. A&P Assessment and plan (1) Abscess of left foot: The patient has failed to respond appropriate IV antibiotics. There is quite a bit of induration and tenderness over the plantar foot in the area of that blister. I suspect it was to the puncture wound and there is some retained foreign material or even a small abscess. I discussed treatment options with the patient. I think her only choice at this point would go to the operating room and opened this up remove any foreign material or abscess material present. I certainly made aware of the risk of complications with infected feet in diabetics. I discussed possible need for further procedures. I discussed that in some instances infection can be very hard to control and see things have resulted in amputation. Discussed anesthetic risk with him as well. He understands all these and agrees to proceed. Status: Acute Coding Level of Care Code Acute Director Rehabilitation Program for [facility] Wanda Diagnoses Abscess of left foot L02.612
[2021-08-26 12:34] LABS: Uric Acid 4.7 mg/dL (3.4-7.0)
--- NOTE | 2021-08-26 13:35 | PM.PN ---
Subjective Subjective: Interval history: Seen this morning. Patient's left toe still swollen however erythema has decreased. Otherwise patient feels well and has no complaints at this time. He does have a history of peripheral neuropathy and does not remember bumping his toe or having a puncture wound. Vitals/I&O/Wt Last Vital Signs Temp 97.7 F 08/26/21 11:26 Pulse 67 08/26/21 11:26 Resp 16 08/26/21 11:26 BP 137/88 08/26/21 11:26 Pulse Ox 94 08/26/21 11:26 08/25/21 08/26/21 08/26/21 22:59 06:59 14:59 Intake Total 50 / 580 240 / 240 Output Total 1600 / 1600 1100 / 2700 Balance -1600 / -1070 -1050 / -2120 240 / 240 Physical Exam Narrative: EXAM NARRATIVE: General: Alert oriented x3, seen laying in bed appearing comfortable. HEENT: Normocephalic, atraumatic, EOMI, Cardio: Regular rate rhythm, normal S1-S2, Respiratory: Good bilateral air entry, no wheezes no rhonchi appreciated GI: Abdomen soft, nontender, nondistended, bowel sounds + Behavior: Appropriate and cooperative Extremities: Right foot has a blister over the base of the second metatarsal head, erythema and swelling of second and third toes is also present. Plantar aspect of foot is tender. Patient is able to flex his toes but somewhat limited to pain. Urinary Catheter Management^: Villanueva: Cath Placed During This Visit: yes Reason for Continuing Indwelling Catheter: Other Urinary Catheter Date of Insertion: 08/23/21 Urinary Catheter Time of Insertion: 20:45 Data : 08/26/21 02:37 08/26/21 02:37 Micro: Microbiology 08/23/21 13:47 Blood Culture - Preliminary Blood Staphylococcus sp coag neg 08/23/21 19:00 Urine Culture - Final Urine Catheterized A&P Assessment and plan (1) Abscess of left foot: Status: Acute (2) Acute exacerbation of CHF (congestive heart failure): Status: Acute (3) RAI (acute kidney injury): Status: Acute (4) HTN (hypertension): Status: Acute (5) Diabetes 1.5, managed as type 2: Status: Acute (6) Atrial fibrillation: Status: Acute Additional A&P Information #Sepsis secondary to left foot abscess ?Patient afebrile and leukocytosis improving. Continue broad-spectrum antibiotics. No signs of DVT or arterial ischemia. CT scan shows emphysematous changes without any collection of fluid and there is no apparent drainable abscess but due to CT findings I have consulted orthopedic surgery as podiatry is not available. ?Erythema is improving but has not resolved. ?Plan for patient to go to OR in a.m. for debridement with Dr. Johns #A. fib: Rate controlled on Xarelto, continue #Acute on chronic CHF exacerbation -Seems to be resolved. Patient placed on oral diuretics #History of hematuria ?Nephrolithiasis nonobstructive seen. No signs of hydronephrosis. Creatinine improved with IV fluids. Will need outpatient follow-up. Will give patient referral to Dr. Paul at discharge. Consistent carbohydrate diet N.p.o. at midnight for procedure in a.m. DVT prophylaxis on Xarelto Full code. Attestations Medical Necessity Statement*: Greater than 24-hour stay, patient has debridement in a.m. 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
[2021-08-26] MEDS: vancomycin 1,500 MG/300 ML PIGGYBACK 200 MG IV (15:25)
[2021-08-26] MEDS: piperacillin-tazobactam 3.375 GM in sodium chloride 0.9% (plus) 50 ML IV (15:58)
[2021-08-26 16:50] LABS: Vancomycin Trough < 4.0 ug/mL (10-15)
[2021-08-26 17:14] LABS: Glucose Point of Care 271 mg/dL (70-110)
[2021-08-26] MEDS: benzonatate 100 mg Capsule PO (18:15)
[2021-08-26 20:33] LABS: Glucose Point of Care 211 mg/dL (70-110)
[2021-08-26] MEDS: insulin glargine 100 units/1 mL 10 UNIT SUBCUT (21:35)
[2021-08-27] VITALS (13 sets, daily range): BP systolic 151–181; BP diastolic 73–92; PULSE 64–83; RESP 14–25; TEMP 36.1–36.9; O2SAT 93–100
[2021-08-27] MEDS: piperacillin-tazobactam 3.375 GM in sodium chloride 0.9% (plus) 50 ML IV ×2 (02:51→17:35)
[2021-08-27 06:13] LABS: Basophils # 0.1 10^3/uL (0.0-0.1); Basophils % 0.7 %; Eosinophils # 0.8 10^3/uL (0.0-0.8); Eosinophils % 4.6 %; Hematocrit 37.4 % (42.0-52.0); Hemoglobin 12.4 g/dL (11.7-16.6); Lymphocytes # 2.3 10^3/uL (0.8-4.8); Lymphocytes % 12.9 %; Mean Corpuscular HGB Conc 33.2 g/dL (30.0-36.0); Mean Corpuscular Hemoglobin 30.6 pg (28.0-34.0); Mean Corpuscular Volume 92.3 fl (80-94); Mean Platelet Volume 10.2 fL (7.4-10.4); Monocytes # 1.6 10^3/uL (0.2-0.9); Monocytes % 8.7 %; Neutrophils # 12.96 10^3/uL (1.8-7.7); Neutrophils % 72.5 %; Nucleated Red Blood Cells % 0 %; Platelet Count 365 10^3/cmm (130-400); Red Blood Count 4.05 10^6/uL (4.1-5.3); Red Cell Distribution Width 13.2 % (12.1-15.1); White Blood Count 17.9 10^3/uL (4.0-10.0)
[2021-08-27 06:51] LABS: Glucose Point of Care 265 mg/dL (70-110)
[2021-08-27 06:57] LABS: Procalcitonin 0.22 ng/mL (0-0.5)
[2021-08-27 07:09] LABS: Blood Urea Nitrogen 17 mg/dL (8-23); Calcium 8.4 mg/dL (8.5-10.5); Carbon Dioxide 22 mmol/L (22-29); Chloride 96 mmol/L (98-107); Glucose 261 mg/dL (65-115); Osmolality Calculated 291 mOsm/kg (285-295); Sodium 135 mmol/L (136-145)
[2021-08-27] MEDS: sotalol 80 mg Tablet PO ×2 (09:12→17:37)
[2021-08-27] MEDS: rivaroxaban 10 mg Tablet 20 MG PO (09:13)
[2021-08-27] MEDS: insulin lispro 100 unit/1 mL SUBCUT ×2 (09:13→17:37)
[2021-08-27] MEDS: digoxin 250 mcg Tablet PO (09:13)
[2021-08-27] MEDS: sennosides-docusate Tablet 1 TAB PO (09:13)
[2021-08-27] MEDS: FUROsemide 20 mg Tablet PO (09:13)
[2021-08-27] MEDS: gabapentin 300 mg Capsule 600 MG PO ×3 (09:13→22:07)
[2021-08-27 11:02] LABS: Glucose Point of Care 234 mg/dL (70-110)
--- NOTE | 2021-08-27 11:46 | ANES.PREANE2 ---
Pre-Anesthetic Assessment Pre-Anesthetic Assessment: Height/Weight: Height 1.73 m Weight 103.873 kg Temp Pulse Resp BP Pulse Ox 97.4 F L 69 14 161/82 94 08/27/21 11:31 08/27/21 11:31 08/27/21 11:31 08/27/21 11:31 08/27/21 11:31 Preop Diagnosis: lumbar stenosis with neurgenic claudication Proposed Procedure: Operation Date: 08/27/21 12:00 Proposed Procedures p Incision & Drainage left foot(Left) - Arnaldo Johns MD Familial anesthetic complications: none Was Beta Carmelita taken within 24 hours: Yes Was Clonidine taken within 24 hours: N/A Last intake: Intake Last Liquid Date 08/26/21 Last Liquid Time 17:00 Last Solid Date 08/26/21 Last Solid Time 17:00 Social: Social History: No alcohol and No tobacco Exam: Pre-Anes Outpt Exam: alert, oriented x 3, clear to auscultation bilaterally and regular rate & rhythm Airway: Cervical ROM: WNL MP: 3 Dentition: Partials CV/HEM: CV/HEM: Afib, CHF and HTN GI: GI: GERD Anesthetic Plan: ASA status: 3 Anesthesia: General Risk of > 500 ml blood loss (7ml/kg in children): No Meds/Allergies Current Medications: Current Medications Generic Name Dose Route Start Last Admin Trade Name Freq PRN Reason Stop Dose Admin Benzonatate 100 mg 08/26/21 09:57 08/26/21 18:15 Benzonatate 100 Mg Capsule PO 100 mg TID PRN Administration COUGH Digoxin 250 mcg 08/24/21 09:00 08/27/21 09:13 Digoxin 250 Mcg Tablet PO 250 mcg DAILY ROSALBA Administration Furosemide 20 mg 08/26/21 08:00 08/27/21 09:13 Furosemide 20 Mg Tablet PO 20 mg DAILY@0800 ROSALBA Administration Gabapentin 600 mg 08/23/21 21:00 08/27/21 09:13 Gabapentin 300 M g Capsule PO 600 mg TID ROSALBA Administration Piperacillin Sod/T azobactam 50 mls @ 12.5 mls /hr 08/26/21 15:00 08/27/21 02:51 Sod 3.375 gm/ So dium Chloride IV 12.5 mls/hr Q8H ROSALBA Administration Protocol Vancomycin/PEG/NAD A/Lysine/Water 1,500 mg in 300 m ls @ 200 mls/hr 08/26/21 14:00 08/26/21 15:25 Vancocin IV 200 mls/hr Q24H ROSALBA Administration Insulin Glargine 10 unit 08/25/21 21:00 08/26/21 21:35 Insulin Glargine 100 Units/1 Ml SUBCUT 10 unit BEDTIME ROSALBA Administration Insulin Human Lisp ro 0 unit 08/23/21 20:26 08/27/21 09:13 Insulin Lispro 1 00 Unit/1 Ml SUBCUT 10 unit TIDWM ROSALBA Administration Protocol Rivaroxaban 20 mg 08/26/21 09:00 08/27/21 09:13 Rivaroxaban 10 M g Tablet PO 20 mg DAILY ROSALBA Administration Senna/Docusate Sod ium 1 tab 08/24/21 09:00 08/27/21 09:13 Sennosides-Docus ate Tablet PO 1 tab DAILY ROSALBA Administration Sotalol HCl 80 mg 08/24/21 09:00 08/27/21 09:12 Sotalol 80 Mg Ta blet PO 80 mg BID ROSALBA Administration PFSH Anesthesia PFSH: Medical History (Updated 08/26/21 @ 12:18 by Arnaldo Johns MD) Anticoagulation adequate with anticoagulant therapy Xarelto Atrial fibrillation Chronic anticoagulation Diabetes 1.5, managed as type 2 Diabetic neuropathy H/O prostate cancer HTN (hypertension) Low back pain Lumbar stenosis with neurogenic claudication Obstructive sleep apnea Refuses CPAP Surgical History (Updated 08/23/21 @ 17:50 by Carol Juarez MD) History of back surgery History of pilonidal cyst S/P appendectomy S/P tonsillectomy Family History Grandmother Cancer MATERNAL Diabetes Grandfather Hypertension MATERNAL Diabetes Social History Smoking and tobacco status: former smoker Alcohol intake: never Household members: children Marital status: service: Yes 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: [employer] 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 travel: No Financial difficulty paying for basics: Very Hard Data Anesthesia CBC & Chem 7: 08/27/21 05:22 08/27/21 05:22 Other Labs: Laboratory Results - last 48 hr 08/23/21 08/25/21 08/25/21 13:25 04:04 17:18 WBC RBC Hgb Hct MCV MCH MCHC RDW Plt Count MPV Neut % (Auto) Lymph % (Auto) Nobles % (Auto) Eos % (Auto) Baso % (Auto) Neut # (Auto) Lymph # (Auto) Nobles # (Auto) Eos # (Auto) Baso # (Auto) Nucleated RBC % (auto) Nucleated RBCs # ESR 51 H Sodium Potassium Chloride Carbon Dioxide Anion Gap BUN Creatinine GFR Calculation Glucose POC Glucose 242 H Calculated Osmolality Uric Acid Calcium Prostate Specific Ag 0.507 Procalcitonin Vancomycin Trough 08/25/21 08/26/21 08/26/21 21:05 02:33 02:37 WBC 16.3 H RBC 3.93 L Hgb 11.9 Hct 37.6 L MCV 95.7 H MCH 30.3 MCHC 31.6 RDW 13.3 Plt Count 307 MPV 10.5 H Neut % (Auto) 70.4 Lymph % (Auto) 15.1 Nobles % (Auto) 8.0 Eos % (Auto) 5.3 Baso % (Auto) 0.6 Neut # (Auto) 11.45 H Lymph # (Auto) 2.5 Nobles # (Auto) 1.3 H Eos # (Auto) 0.9 H Baso # (Auto) 0.1 Nucleated RBC % (auto) 0 Nucleated RBCs # 0.0 ESR Sodium Potassium Chloride Carbon Dioxide Anion Gap BUN Creatinine GFR Calculation Glucose POC Glucose 252 H Calculated Osmolality Uric Acid 4.7 Calcium Prostate Specific Ag Procalcitonin Vancomycin Trough 08/26/21 08/26/21 08/26/21 02:37 06:16 11:23 WBC RBC Hgb Hct MCV MCH MCHC RDW Plt Count MPV Neut % (Auto) Lymph % (Auto) Nobles % (Auto) Eos % (Auto) Baso % (Auto) Neut # (Auto) Lymph # (Auto) Nobles # (Auto) Eos # (Auto) Baso # (Auto) Nucleated RBC % (auto) Nucleated RBCs # ESR Sodium 136 Potassium 4.2 Chloride 99 Carbon Dioxide 22 Anion Gap 19.2 H BUN 18 Creatinine 0.7 GFR Calculation Not Reportable Glucose 258 H POC Glucose 262 H 219 H Calculated Osmolality 293 Uric Acid Calcium 8.3 L Prostate Specific Ag Procalcitonin Vancomycin Trough 08/26/21 08/26/21 08/26/21 15:57 17:04 20:31 WBC RBC Hgb Hct MCV MCH MCHC RDW Plt Count MPV Neut % (Auto) Lymph % (Auto) Nobles % (Auto) Eos % (Auto) Baso % (Auto) Neut # (Auto) Lymph # (Auto) Nobles # (Auto) Eos # (Auto) Baso # (Auto) Nucleated RBC % (auto) Nucleated RBCs # ESR Sodium Potassium Chloride Carbon Dioxide Anion Gap BUN Creatinine GFR Calculation Glucose POC Glucose 271 H 211 H Calculated Osmolality Uric Acid Calcium Prostate Specific Ag Procalcitonin Vancomycin Trough < 4.0 L 08/27/21 08/27/21 08/27/21 05:22 05:22 06:48 WBC 17.9 H RBC 4.05 L Hgb 12.4 Hct 37.4 L MCV 92.3 MCH 30.6 MCHC 33.2 D RDW 13.2 Plt Count 365 MPV 10.2 Neut % (Auto) 72.5 Lymph % (Auto) 12.9 Nobles % (Auto) 8.7 Eos % (Auto) 4.6 Baso % (Auto) 0.7 Neut # (Auto) 12.96 H Lymph # (Auto) 2.3 Nobles # (Auto) 1.6 H Eos # (Auto) 0.8 Baso # (Auto) 0.1 Nucleated RBC % (auto) 0 Nucleated RBCs # 0.0 ESR Sodium 135 L Potassium 4.0 Chloride 96 L Carbon Dioxide 22 Anion Gap 21.0 H BUN 17 Creatinine 0.7 GFR Calculation Not Reportable Glucose 261 H POC Glucose 265 H Calculated Osmolality 291 Uric Acid Calcium 8.4 L Prostate Specific Ag Procalcitonin 0.22 Vancomycin Trough 08/27/21 10:57 WBC RBC Hgb Hct MCV MCH MCHC RDW Plt Count MPV Neut % (Auto) Lymph % (Auto) Nobles % (Auto) Eos % (Auto) Baso % (Auto) Neut # (Auto) Lymph # (Auto) Nobles # (Auto) Eos # (Auto) Baso # (Auto) Nucleated RBC % (auto) Nucleated RBCs # ESR Sodium Potassium Chloride Carbon Dioxide Anion Gap BUN Creatinine GFR Calculation Glucose POC Glucose 234 H Calculated Osmolality Uric Acid Calcium Prostate Specific Ag Procalcitonin Vancomycin Trough Micro: Microbiology 08/23/21 13:47 Blood Culture - Preliminary Blood Staphylococcus sp coag neg 08/23/21 19:00 Urine Culture - Final Urine Catheterized Cardiac Studies: No Data to Display
--- NOTE | 2021-08-27 12:18 | W.PM.OPSUD ---
Surgery/Procedure H&P Update DATE OF PROCEDURE: August 27, 2021 DATE H&P PERFORMED: 08/26/21 H&P UPDATE INFORMATION: I have reviewed H&P completed within last 30 days PREOP DIAGNOSIS: lumbar stenosis with neurgenic claudication PLANNED PROCEDURE: Operation Date: 08/27/21 12:00 Proposed Procedures p Incision & Drainage left foot(Left) - Arnaldo Johns MD
--- NOTE | 2021-08-27 13:02 | PM.OP ---
Operative Report Date of procedure: August 27, 2021 Pre-op Diagnosis: Abscess left foot Post-op diagnosis: same Post-op Findings: Same Procedure Done: Irrigation and excisional debridement abscess left foot Specimens removed/disposition: routine and anaerobic cultures of purulent material were sent Pathology: none sent Surgeon: Arnaldo Johns Anesthesia: MAC Estimated blood loss (mL): 2 Findings: The patient has left forefoot beneath the second metatarsal head big toe soft tissues extending dorsally along the medial aspect of the big toe extending to the subcutaneous dorsal medial soft tissue Condition: stable Disposition: PACU Procedure: The patient was taken to the operating room patient was taken to the operating room and a conscious sedation provided by anesthesia. The area of the plantar puncture wound was opened up with a 2 cm long incision revealing a volar abscess cavity. Routine and anaerobic cultures were sent. Dissection was then accomplished with a hemostat following the pair of material. This dissected up in the subcutaneous tissues of the big toe very close to the epidermis. A 1 cm long incision was made through the skin of the medial big toe. Utilized a rongeur small amounts of necrotic material were move from the plantar wound. Incisions were then packed with a saline soaked 4 x 4 and covered with dry 4 x 4's and a Kerlix roll. The patient was transferred to recovery room in stable condition.
--- NOTE | 2021-08-27 13:43 | ANE.PACU2 ---
Inpatient post-anesthesia follow up: Airway intact: Yes Vital signs: Temperature 98 F Pulse Rate 64 Respiratory Rate 18 Blood Pressure 158/83 Pulse Oximetry 96 Oxygen Delivery Me thod Room Air Oxygen Flow Rate 4 Fraction of Inspir ed Oxygen Hydration adequate: Yes Nausea and vomiting: No Pain level: 2 Mental status: Baseline
[2021-08-27] MEDS: vancomycin 1,500 MG/300 ML PIGGYBACK 200 MG IV (15:08)
[2021-08-27] MEDS: benzonatate 100 mg Capsule PO (15:08)
--- NOTE | 2021-08-27 16:42 | PM.PN ---
Subjective Subjective: Interval history: Patient seen today. He is status post incision and drainage of left foot abscess. He states he is doing well but is quite sleepy after anesthesia. Offers no complaints at this time. Vitals/I&O/Wt Last Vital Signs Temp 98 F 08/27/21 13:30 Pulse 64 08/27/21 13:30 Resp 18 08/27/21 13:30 BP 158/83 08/27/21 13:30 Pulse Ox 96 08/27/21 13:30 08/27/21 08/27/21 08/27/21 06:59 14:59 22:59 Intake Total 310 / 930 240 / 240 Output Total Balance 310 / -370 220 / 220 Physical Exam Narrative: EXAM NARRATIVE: General: Appears drowsy after anesthesia., seen laying in bed appearing comfortable. HEENT: Normocephalic, atraumatic, EOMI, Cardio: Regular rate rhythm, normal S1-S2, Respiratory: Good bilateral air entry, no wheezes no rhonchi appreciated GI: Abdomen soft, nontender, nondistended, bowel sounds + Extremities: Foot seen postop. Wrapped with Band-Aid. We will not removed today. Urinary Catheter Management^: Villanueva: Cath Placed During This Visit: yes Reason for Continuing Indwelling Catheter: Not indwelling catheter Urinary Catheter Date of Insertion: 08/23/21 Urinary Catheter Time of Insertion: 20:45 Data : 08/28/21 06:02 08/28/21 06:02 Micro: Microbiology 08/23/21 13:47 Blood Culture - Preliminary Blood Staphylococcus sp coag neg A&P Assessment and plan (1) Abscess of left foot: Status: Acute (2) Acute exacerbation of CHF (congestive heart failure): Status: Acute (3) RAI (acute kidney injury): Status: Acute (4) HTN (hypertension): Status: Acute (5) Diabetes 1.5, managed as type 2: Status: Acute (6) Atrial fibrillation: Status: Acute Additional A&P Information #Sepsis secondary to left foot abscess ?Patient afebrile and leukocytosis improving. Continue broad-spectrum antibiotics. No signs of DVT or arterial ischemia. CT scan shows emphysematous changes without any collection of fluid and there is no apparent drainable abscess but due to CT findings I have consulted orthopedic surgery as podiatry is not available. ?Erythema is improving but has not resolved. ?Patient is status post debridement with Dr. Johns. Will follow recommendations. We will keep him on IV antibiotics for another day. #A. fib: Rate controlled on Xarelto, continue #Acute on chronic CHF exacerbation -Seems to be resolved. Patient placed on oral diuretics #History of hematuria ?Nephrolithiasis nonobstructive seen. No signs of hydronephrosis. Creatinine improved with IV fluids. Will need outpatient follow-up. Will give patient referral to Dr. Paul at discharge. Consistent carbohydrate diet May restart diet. DVT prophylaxis on Xarelto Full code. Attestations Medical Necessity Statement*: Greater than 24-hour stay. 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
[2021-08-27 16:57] LABS: Glucose Point of Care 279 mg/dL (70-110)
[2021-08-27] MEDS: insulin glargine 100 units/1 mL 10 UNIT SUBCUT (22:07)
[2021-08-27 22:10] LABS: Glucose Point of Care 215 mg/dL (70-110)
[2021-08-28] VITALS (9 sets, daily range): BP systolic 146–185; BP diastolic 77–92; PULSE 62–79; RESP 16–18; TEMP 36.5–37.1; O2SAT 92–95
[2021-08-28] MEDS: piperacillin-tazobactam 3.375 GM in sodium chloride 0.9% (plus) 50 ML IV ×3 (02:33→18:28)
[2021-08-28 06:26] LABS: Basophils # 0.1 10^3/uL (0.0-0.1); Basophils % 0.7 %; Eosinophils # 0.5 10^3/uL (0.0-0.8); Eosinophils % 2.7 %; Hematocrit 37.5 % (42.0-52.0); Hemoglobin 12.4 g/dL (11.7-16.6); Lymphocytes # 2.8 10^3/uL (0.8-4.8); Lymphocytes % 15.3 %; Mean Corpuscular HGB Conc 33.1 g/dL (30.0-36.0); Mean Corpuscular Hemoglobin 30.7 pg (28.0-34.0); Mean Corpuscular Volume 92.8 fl (80-94); Mean Platelet Volume 9.7 fL (7.4-10.4); Monocytes # 1.6 10^3/uL (0.2-0.9); Monocytes % 8.7 %; Neutrophils # 13.09 10^3/uL (1.8-7.7); Neutrophils % 71.8 %; Nucleated Red Blood Cells % 0 %; Platelet Count 380 10^3/cmm (130-400); Red Blood Count 4.04 10^6/uL (4.1-5.3); Red Cell Distribution Width 13.2 % (12.1-15.1); White Blood Count 18.3 10^3/uL (4.0-10.0)
[2021-08-28 06:33] LABS: Glucose Point of Care 245 mg/dL (70-110)
[2021-08-28 06:50] LABS: Anion Gap 19.9 (5-19); Blood Urea Nitrogen 17 mg/dL (8-23); Calcium 8.5 mg/dL (8.5-10.5); Carbon Dioxide 22 mmol/L (22-29); Chloride 95 mmol/L (98-107); Glucose 241 mg/dL (65-115); Magnesium 1.8 mg/dL (1.7-2.3); Osmolality Calculated 285 mOsm/kg (285-295); Potassium 3.9 mmol/L (3.5-5.1); Sodium 133 mmol/L (136-145)
--- NOTE | 2021-08-28 08:11 | P.PN_ITS ---
Subjective Subjective: Interval history: No interval complaint Vitals/I&O/Wt Last Vital Signs Temp 9705 F H 08/28/21 04:00 Pulse 62 08/28/21 04:00 Resp 18 08/28/21 04:00 BP 185/92 08/28/21 04:00 Pulse Ox 95 08/28/21 04:00 08/27/21 08/28/21 08/28/21 22:59 06:59 14:59 Intake Total 170 / 410 400 / 810 Output Total 1350 / 1370 900 / 2270 Balance -1180 / -960 -500 / -1460 Physical Exam Narrative: EXAM NARRATIVE: Right foot plantar and dorsal wounds appear clean. May be slight decreased swelling. May be slight decrease in proximal erythema. Urinary Catheter Management^: Villanueva: Cath Placed During This Visit: yes Reason for Continuing Indwelling Catheter: Not indwelling catheter Urinary Catheter Date of Insertion: 08/23/21 Urinary Catheter Time of Insertion: 20:45 Data : 08/28/21 06:02 08/28/21 06:02 A&P Assessment and plan (1) Abscess of left foot: Begin wet-to-dry dressing changes. Patient may follow-up in our wound clinic. Cultures and sensitivities pending. Suspect Staphylococcus with clinical appearance of abscess. 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
[2021-08-28] MEDS: sotalol 80 mg Tablet PO ×2 (08:44→17:23)
[2021-08-28] MEDS: rivaroxaban 10 mg Tablet 20 MG PO (08:44)
[2021-08-28] MEDS: digoxin 250 mcg Tablet PO (08:44)
[2021-08-28] MEDS: sennosides-docusate Tablet 1 TAB PO (08:44)
[2021-08-28] MEDS: gabapentin 300 mg Capsule 600 MG PO ×3 (08:45→22:25)
[2021-08-28] MEDS: lisinopril 20 mg Tablet 40 MG PO (08:45)
[2021-08-28] MEDS: FUROsemide 20 mg Tablet PO (08:45)
[2021-08-28] MEDS: insulin lispro 100 unit/1 mL SUBCUT ×3 (08:45→18:18)
[2021-08-28 11:01] LABS: Glucose Point of Care 244 mg/dL (70-110)
[2021-08-28 14:22] LABS: Vancomycin Trough 6.1 ug/mL (10-15)
--- NOTE | 2021-08-28 14:41 | PM.PN ---
Subjective Subjective: Interval history: Seen this morning. Patient state his pain is well controlled and is foot is not hurting. He still has Villanueva catheter in place. We will remove that to the end of voiding trial. Patient's culture sensitivities still pending. Bacteria has been identified as staph aureus so far. Patient does not offer any complaints this morning. Vitals/I&O/Wt Last Vital Signs Temp 97.8 F 08/28/21 12:00 Pulse 63 08/28/21 12:00 Resp 16 08/28/21 12:00 BP 169/83 08/28/21 12:00 Pulse Ox 93 08/28/21 12:00 08/27/21 08/28/21 08/28/21 22:59 06:59 14:59 Intake Total 170 / 410 400 / 810 550 / 550 Output Total 1350 / 1370 900 / 2270 Balance -1180 / -960 -500 / -1460 550 / 550 Physical Exam Narrative: EXAM NARRATIVE: General: Pleasant, alert oriented x3, seen laying comfortably in bed. HEENT: Normocephalic, atraumatic, EOMI, Cardio: Regular rate rhythm, normal S1-S2, Respiratory: Good bilateral air entry, no wheezes no rhonchi appreciated GI: Abdomen soft, nontender, nondistended, bowel sounds + Extremities: Right foot plantar and dorsal wounds appear clean, swelling has decreased a little bit. Urinary Catheter Management^: Villanueva: Cath Placed During This Visit: yes Reason for Continuing Indwelling Catheter: Not indwelling catheter Urinary Catheter Date of Insertion: 08/23/21 Urinary Catheter Time of Insertion: 20:45 Data : 08/28/21 06:02 08/28/21 06:02 Micro: Microbiology 08/23/21 13:53 Blood Culture - Final Blood NO GROWTH AFTER 5 DAYS 08/27/21 12:40 Wound Culture - Preliminary Foot Left Staphylococcus aureus 08/23/21 13:47 Blood Culture - Final Blood Staphylococcus sp coag neg A&P Assessment and plan (1) Abscess of left foot: Status: Acute (2) Acute exacerbation of CHF (congestive heart failure): Status: Acute (3) RAI (acute kidney injury): Status: Acute (4) HTN (hypertension): Status: Acute (5) Diabetes 1.5, managed as type 2: Status: Acute (6) Atrial fibrillation: Status: Acute Additional A&P Information #Sepsis secondary to left foot abscess ?Patient afebrile and leukocytosis improving. Continue broad-spectrum antibiotics. No signs of DVT or arterial ischemia. CT scan shows emphysematous changes without any collection of fluid and there is no apparent drainable abscess but due to CT findings I have consulted orthopedic surgery as podiatry is not available. ?Erythema is improving but has not resolved. ?Patient is status post debridement with Dr. Johns. Will follow recommendations. We will keep him on IV antibiotics for another day. -We will narrow down antibiotics once we have culture sensitivity back It has been recommended not to put weight on his foot. Patient will need a walker at discharge. ?He will follow with wound care clinic outpatient. #A. fib: Rate controlled on Xarelto, continue #Acute on chronic CHF exacerbation -Seems to be resolved. Patient placed on oral diuretics #History of hematuria ?Nephrolithiasis nonobstructive seen. No signs of hydronephrosis. Creatinine improved with IV fluids. Will need outpatient follow-up. Will give patient referral to Dr. Paul at discharge. Remove Villanueva catheter today and a voiding trial. Consistent carbohydrate diet May restart diet. DVT prophylaxis on Xarelto Full code. Attestations Medical Necessity Statement*: Greater than 48 hours day. 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
[2021-08-28] MEDS: vancomycin 1,000 MG in sodium chloride 0.9% 250 ML 250 MG IV (17:23)
[2021-08-28 17:31] LABS: Glucose Point of Care 257 mg/dL (70-110)
[2021-08-28 21:27] LABS: Glucose Point of Care 265 mg/dL (70-110)
[2021-08-28 21:42] LABS: Glucose Point of Care 229 mg/dL (70-110)
[2021-08-28] MEDS: insulin glargine 100 units/1 mL 10 UNIT SUBCUT (22:26)
[2021-08-29] VITALS (7 sets, daily range): BP systolic 124–178; BP diastolic 66–84; PULSE 67–88; RESP 16–18; TEMP 36.4–36.6; O2SAT 93–97
[2021-08-29] MEDS: piperacillin-tazobactam 3.375 GM in sodium chloride 0.9% (plus) 50 ML IV ×3 (02:47→17:35)
[2021-08-29 05:52] LABS: Blood Urea Nitrogen 17 mg/dL (8-23); Calcium 8.4 mg/dL (8.5-10.5); Carbon Dioxide 18 mmol/L (22-29); Glucose 267 mg/dL (65-115); Magnesium 1.7 mg/dL (1.7-2.3); Osmolality Calculated 291 mOsm/kg (285-295); Sodium 135 mmol/L (136-145)
[2021-08-29 06:00] LABS: Basophils # 0.1 10^3/uL (0.0-0.1); Basophils % 0.8 %; Eosinophils # 0.7 10^3/uL (0.0-0.8); Hematocrit 43.5 % (42.0-52.0); Hemoglobin 14.4 g/dL (11.7-16.6); Lymphocytes # 3.1 10^3/uL (0.8-4.8); Lymphocytes % 18.1 %; Mean Corpuscular HGB Conc 33.1 g/dL (30.0-36.0); Mean Corpuscular Hemoglobin 30.7 pg (28.0-34.0); Mean Corpuscular Volume 92.8 fl (80-94); Monocytes # 1.2 10^3/uL (0.2-0.9); Monocytes % 6.8 %; Neutrophils # 11.77 10^3/uL (1.8-7.7); Neutrophils % 69.1 %; Nucleated Red Blood Cells % 0 %; Platelet Count 374 10^3/cmm (130-400); Red Blood Count 4.69 10^6/uL (4.1-5.3); Red Cell Distribution Width 13.3 % (12.1-15.1)
[2021-08-29 06:01] LABS: Anion Gap 118.9 (5-19); Chloride 3 mmol/L (98-107); Potassium 4.9 mmol/L (3.5-5.1)
[2021-08-29] MEDS: vancomycin 1,000 MG in sodium chloride 0.9% 250 ML 250 MG IV ×2 (06:38→15:03)
[2021-08-29 06:42] LABS: Glucose Point of Care 279 mg/dL (70-110)
[2021-08-29] MEDS: sotalol 80 mg Tablet PO ×2 (08:21→17:36)
[2021-08-29] MEDS: rivaroxaban 10 mg Tablet 20 MG PO (08:21)
[2021-08-29] MEDS: lisinopril 20 mg Tablet 40 MG PO (08:21)
[2021-08-29] MEDS: sennosides-docusate Tablet 1 TAB PO (08:21)
[2021-08-29] MEDS: FUROsemide 20 mg Tablet PO (08:21)
[2021-08-29] MEDS: digoxin 250 mcg Tablet PO (08:22)
[2021-08-29] MEDS: gabapentin 300 mg Capsule 600 MG PO ×3 (08:22→20:51)
[2021-08-29] MEDS: insulin lispro 100 unit/1 mL SUBCUT ×3 (08:23→17:36)
[2021-08-29 09:32] LABS: Anion Gap 19.9 (5-19); Blood Urea Nitrogen 17 mg/dL (8-23); Calcium 8.1 mg/dL (8.5-10.5); Carbon Dioxide 20 mmol/L (22-29); Chloride 98 mmol/L (98-107); Glucose 286 mg/dL (65-115); Osmolality Calculated 290 mOsm/kg (285-295); Potassium 3.9 mmol/L (3.5-5.1); Sodium 134 mmol/L (136-145)
[2021-08-29] MEDS: amlodipine 5 mg Tablet PO (09:37)
--- NOTE | 2021-08-29 10:43 | PM.PN ---
Subjective Subjective: Interval history: Seen this AM. Awaiting culture sensitivity for wound culture. He does not offer complaints. Vitals/I&O/Wt Last Vital Signs Temp 97.6 F 08/29/21 07:09 Pulse 72 08/29/21 08:22 Resp 17 08/29/21 07:09 BP 177/83 08/29/21 07:09 Pulse Ox 93 08/29/21 07:09 08/28/21 08/29/21 08/29/21 22:59 06:59 14:59 Intake Total 780 / 1450 100 / 1550 370 / 370 Output Total 600 / 600 700 / 1300 Balance 180 / 850 -600 / 250 370 / 370 Physical Exam Narrative: EXAM NARRATIVE: General: Pleasant, alert oriented x3, seen laying comfortably in bed. HEENT: Normocephalic, atraumatic, EOMI, Cardio: Regular rate rhythm, normal S1-S2, Respiratory: Good bilateral air entry, no wheezes no rhonchi appreciated GI: Abdomen soft, nontender, nondistended, bowel sounds + Extremities: Right foot plantar and dorsal wounds appear clean, swelling has decreased compared to prior. Urinary Catheter Management^: Villanueva: Cath Placed During This Visit: yes Reason for Continuing Indwelling Catheter: Acute Urinary Retention or Obstruction Urinary Catheter Date of Insertion: 08/23/21 Urinary Catheter Time of Insertion: 20:45 Data : 08/29/21 05:18 08/29/21 08:35 Micro: Microbiology 08/27/21 12:40 Wound Culture - Preliminary Foot Left Staphylococcus aureus 08/27/21 12:40 Anaerobic Culture - Preliminary Foot - Left 08/23/21 13:53 Blood Culture - Final Blood NO GROWTH AFTER 5 DAYS 08/23/21 13:47 Blood Culture - Final Blood Staphylococcus sp coag neg A&P Assessment and plan (1) Abscess of left foot: Status: Acute (2) Acute exacerbation of CHF (congestive heart failure): Status: Acute (3) RAI (acute kidney injury): Status: Acute (4) HTN (hypertension): Status: Acute (5) Diabetes 1.5, managed as type 2: Status: Acute (6) Atrial fibrillation: Status: Acute Additional A&P Information #Sepsis secondary to left foot abscess ?Patient afebrile and leukocytosis improving. Continue broad-spectrum antibiotics. No signs of DVT or arterial ischemia. CT scan shows emphysematous changes without any collection of fluid and there is no apparent drainable abscess but due to CT findings I have consulted orthopedic surgery as podiatry is not available. ?Erythema is improving but has not resolved. ?Patient is status post debridement with Dr. Johns. Will follow recommendations. We will keep him on IV antibiotics for another day. -We will narrow down antibiotics once we have culture sensitivity back It has been recommended not to put weight on his foot. Patient will need a walker at discharge. ?He will follow with wound care clinic outpatient. DISCHARGE PT ONCE CULTURE SENSITIVITY IS BACK. #A. fib: Rate controlled on Xarelto, continue #Acute on chronic CHF exacerbation -Seems to be resolved. Patient placed on oral diuretics #History of hematuria ?Nephrolithiasis nonobstructive seen. No signs of hydronephrosis. Creatinine improved with IV fluids. Will need outpatient follow-up. Will give patient referral to Dr. Paul at discharge. Remove Villanueva catheter today and a voiding trial. Consistent carbohydrate diet May restart diet. DVT prophylaxis on Xarelto Full code. Attestations Medical Necessity Statement*: DIscharge in AM. Coding Level of Care Code Acute Physical Education Instructor for g Fwd Diagnoses Abscess of left foot L02.612 Acute exacerbation of CHF (congestive heart failure) I50.9 RAI (acute kidney injury) N17.9 HTN (hypertension) I10 Diabetes 1.5, managed as type 2 E13.9 Atrial fibrillation I48.91
[2021-08-29 11:24] LABS: Glucose Point of Care 274 mg/dL (70-110)
[2021-08-29 17:23] LABS: Glucose Point of Care 405 mg/dL (70-110)
[2021-08-29] MEDS: insulin glargine 100 units/1 mL 10 UNIT SUBCUT (20:51)
[2021-08-29 21:07] LABS: Glucose Point of Care 206 mg/dL (70-110)
[2021-08-30] VITALS: BP 160/74; PULSE 76; RESP 17; TEMP 36.9; O2SAT 97
[2021-08-30] MEDS: piperacillin-tazobactam 3.375 GM in sodium chloride 0.9% (plus) 50 ML IV ×2 (02:51→12:25)
[2021-08-30 04:00] VITALS: BP 132/78; PULSE 79; RESP 17; TEMP 36.5; O2SAT 95
[2021-08-30 04:25] LABS: Vancomycin Trough 10.2 ug/mL (10-15)
[2021-08-30] MEDS: vancomycin 1,000 MG in sodium chloride 0.9% 250 ML 250 MG IV (04:45)
[2021-08-30 07:13] LABS: Glucose Point of Care 261 mg/dL (70-110)
[2021-08-30 08:00] VITALS: BP 173/82; PULSE 66; RESP 17; TEMP 36.6; O2SAT 95
[2021-08-30 08:15] LABS: Basophils # 0.2 10^3/uL (0.0-0.1); Eosinophils # 1.1 10^3/uL (0.0-0.8); Eosinophils % 6.8 %; Hematocrit 40.9 % (42.0-52.0); Lymphocytes # 3.2 10^3/uL (0.8-4.8); Lymphocytes % 20.6 %; Mean Corpuscular HGB Conc 31.8 g/dL (30.0-36.0); Mean Corpuscular Volume 94.5 fl (80-94); Mean Platelet Volume 9.8 fL (7.4-10.4); Monocytes # 1.1 10^3/uL (0.2-0.9); Monocytes % 6.8 %; Neutrophils # 9.93 10^3/uL (1.8-7.7); Neutrophils % 64.1 %; Nucleated Red Blood Cells % 0 %; Platelet Count 533 10^3/cmm (130-400); Red Blood Count 4.33 10^6/uL (4.1-5.3); Red Cell Distribution Width 13.2 % (12.1-15.1); White Blood Count 15.5 10^3/uL (4.0-10.0)
[2021-08-30] MEDS: gabapentin 300 mg Capsule 600 MG PO ×2 (08:46→15:17)
[2021-08-30] MEDS: rivaroxaban 10 mg Tablet 20 MG PO (08:46)
[2021-08-30] MEDS: FUROsemide 20 mg Tablet PO (08:46)
[2021-08-30 08:47] VITALS: PULSE 79
[2021-08-30] MEDS: digoxin 250 mcg Tablet PO (08:47)
[2021-08-30] MEDS: sotalol 80 mg Tablet PO (08:47)
[2021-08-30] MEDS: sennosides-docusate Tablet 1 TAB PO (08:47)
[2021-08-30] MEDS: amlodipine 5 mg Tablet PO (08:47)
[2021-08-30] MEDS: insulin lispro 100 unit/1 mL SUBCUT ×2 (08:48→12:24)
[2021-08-30] MEDS: lisinopril 20 mg Tablet 40 MG PO (08:49)
[2021-08-30 11:03] LABS: Glucose Point of Care 273 mg/dL (70-110)
[2021-08-30 11:48] VITALS: BP 133/75; PULSE 67; RESP 18; TEMP 36.8; O2SAT 94
--- NOTE | 2021-08-30 11:51 | PC.CHAP ---
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 director business management visit [] Patient/Family/Request visit [] Outpatient visit [xx] Follow-up visit [] Physician referral [] Code/Alert [xx] Routine visit [] Staff referral [] Actively dying [] Patient sleeping [] Family support [] [] Out of room [] Palliative care [] [] Receiving care in room [] Pre-surgical visit [] Trauma [xx] Long length of stay [] ICU visit [] Other: Relational/Emotional Strength [xx] Patient feels connected with others/family/visitors/staff [] Distress [] Loneliness/isolation [] Abandonment Spirituality of Patient [] Person of Melva [] Attends Temple of their Melva [] Believes in Prayer [] Reads Bible or Cheondoism materials [] There are Spiritual issues to be addressed Electroneurodiagnostic Technologist Interventions [xx] Prayer [xx] Active listening [xx] Non-anxious presence [] Spiritual/emotional support [] Crisis/trauma care [] Spiritual counseling [] Bereavement support [] Provided bereavement packet [] Provided Bible/devotional materials [] Provided toy/stuffed animal, coloring book to patient or family member [] Provided Communion [] Anointing/[place] [] Salvation [xx] Completed spiritual assessment [] Other: Impact on Illness or Injury [] Angry [] Fearful [] Anxious [] Often cries [] Exhaustion [] Unable to work [] Unable to attend spiritism [] Unable to walk/stand [] Unable to read [] Unable to drive [] Unable to eat/drink [] Unable to sleep [] Unable to be with family [] Patient intubated [] Other: Summary Patient feeling much better but he does not want to visit much. He fell asleep while director business management was praying. Time spent with patient 4 minutes
--- NOTE | 2021-08-30 15:08 | PM.DCS ---
Discharge Providers Date of Admission: 08/23/21 20:26 Date of Discharge: August 30, 2021 Attending Provider at Admission: Carol Juarez MD Attending Provider at Discharge: Lillian Pascal MD Primary Care Provider: Trisha Urena MD Diagnoses at Discharge Discharge Diagnosis (1) Abscess of left foot: Status: Resolved (2) Acute exacerbation of CHF (congestive heart failure): Status: Resolved (3) RAI (acute kidney injury): Status: Resolved (4) HTN (hypertension): Status: Acute (5) Diabetes 1.5, managed as type 2: Status: Acute (6) Atrial fibrillation: Status: Acute Reason for Visit Reason for Visit: Infection in Left Foot Hospital Course Hospital Course HPI as per Dr. Juarez Raphael Deal is a 71 year old male who has history of atrial fibrillation, chronic anticoagulation, presented today for worsening of swelling and redness of his left foot. Patient is stating that for last 1 to 2 weeks he has been noticing bilateral lower extremity swelling. This was gradually getting worse. For last 10 days he has been noticing christina hematuria as well. He does carry history of prostate cancer status post radiotherapy. That was roughly 10 years ago. He never experienced any hematuria in last few years. This [facility] for worsening leg swelling. He was told to get UA to rule out UTI as a cause for hematuria. Today he presented to the hospital for worsening of left-sided redness and swelling. His also noticed blister on plantar surface of left foot. As per the this blister was not present 48 hours ago. He has not stepped on any sharp object. He did not suffer from any trauma. In the ER he was diagnosed with cellulitis, no drainable abscess was noted, imaging consistent with cellulitis. Patient was started on broad-spectrum antibiotics, ER physician did try to drain fluid around the blister however no abscess was noted Sepsis criteria met with tachycardia, leukocytosis hemodynamically stable Patient does have hypogastric tenderness, requested Villanueva catheter placement Course Patient was admitted for sepsis secondary to left foot abscess. CT scan showed emphysematous changes without any collection of fluid. Orthopedic surgery was consulted. Patient was debrided by Dr. Johns. He was given IV antibiotics during hospital stay. Once final culture sensitivity was back patient was discharged home with follow-up with wound care clinic outpatient and Dr. Johns. It was recommended not to put weight on his foot and he was set up with a walker at discharge. He did receive a Villanueva during hospital stay but that was removed prior to discharge and he was able to void on his own. Patient was a patient [facility] and was on Lantus 80 units twice daily previously but in the hospital he was getting 20 units daily. Also he was getting a very high amount of premeal insulin. Insulin dose was adjusted at discharge. [facility] also called [facility] to let [facility] care provider know regarding the insulin regimen. They said they will follow up with him in the clinic next week. Physical Exam Narrative: EXAM NARRATIVE: General: Pleasant, alert oriented x3, seen laying comfortably in bed. HEENT: Normocephalic, atraumatic, EOMI, Cardio: Regular rate rhythm, normal S1-S2, Respiratory: Good bilateral air entry, no wheezes no rhonchi appreciated GI: Abdomen soft, nontender, nondistended, bowel sounds + Extremities: Right foot plantar and dorsal wounds appear clean, swelling has decreased compared to prior. Urinary Catheter Management^: Villanueva: Cath Placed During This Visit: yes, but has since been removed by the nurse Reason for Continuing Indwelling Catheter: Decision to DC Catheter Urinary Catheter Date of Insertion: 08/23/21 Urinary Catheter Time of Insertion: 20:45 Date Urinary Catheter Removed: 08/29/21 Time Urinary Catheter Discontinued: 09:30 Discharge Data Data Completed and Pending: Completed Studies During Hospitalization Category Date Time Status CT abdomen pelvis wo con [id number] Urge nt Cat Scan 08/23/21 18:[address] foot LT w con [id number] Stat Cat Scan 08/24/21 12:[address] lower leg LT w con [id number] Stat Cat Scan 08/24/21 12:11 Completed XR ankle LT 2V 73 600 Stat Exams 08/23/21 13:17 Completed XR chest 1V johnathan ble [id number] Stat Exams 08/23/21 13:05 Completed XR foot LT 2V 736 20 Stat Exams 08/23/21 13:17 [place] [id number] Rout ine Ultrasound 08/24/21 20:29 [place] [id number] Routin e Ultrasound 08/24/21 17:54 Completed Pending at discharge Category Date Time Status Anaerobic Culture Routine Lab 08/27/21 12:40 Results Labs from last 24 hours 08/30/21 08/30/21 08/30/21 10:56 07:10 03:38 WBC 15.5 H RBC 4.33 Hgb 13.0 Hct 40.9 L MCV 94.5 H MCH 30.0 MCHC 31.8 RDW 13.2 Plt Count 533 H D MPV 9.8 Neut % (Auto) 64.1 Lymph % (Auto) 20.6 [place] % (Auto) 6.8 Eos % (Auto) 6.8 Baso % (Auto) 1.0 Neut # (Auto) 9.93 H Lymph # (Auto) 3.2 [place] # (Auto) 1.1 H Eos # (Auto) 1.1 H Baso # (Auto) 0.2 H Nucleated RBC % (a uto) 0 Nucleated RBCs # 0.0 POC Glucose 273 H 261 H Vancomycin Trough 08/30/21 08/29/21 08/29/21 03:38 20:49 16:54 WBC RBC Hgb Hct MCV MCH MCHC RDW Plt Count MPV Neut % (Auto) Lymph % (Auto) [place] % (Auto) Eos % (Auto) Baso % (Auto) Neut # (Auto) Lymph # (Auto) [place] # (Auto) Eos # (Auto) Baso # (Auto) Nucleated RBC % (a uto) Nucleated RBCs # POC Glucose 206 H 405 H Vancomycin Trough 10.2 Vitals: Last Vital Signs Temp 98.2 F 08/30/21 11:48 Pulse 67 08/30/21 11:48 Resp 18 08/30/21 11:48 BP 133/75 08/30/21 11:48 Pulse Ox 94 08/30/21 11:48 Discharge Plan Discharge Patient Disposition: Home Condition: Stable Prescriptions: New amlodipine 5 mg Tablet 5 mg PO DAILY 30 Days Qty: 30 RF: 0 Novolog Flexpen U-100 Insulin 100 unit/mL (3 mL) insulin pen See Rx Instructions .ROUTE .COMPLEX Qty: 15 RF: 2 Continued omega-3 fatty acids [Fish Oil Concentrate] 1,000 mg capsule 1,000 mg PO BID RF: 0 digoxin 250 mcg (0.25 mg) tablet 250 mcg PO DAILY RF: 0 cholecalciferol (vitamin D3) [Vitamin D3] 25 mcg (1,000 unit) capsule 3,000 unit PO DAILY RF: 0 Xarelto 20 mg tablet 20 mg PO DAILY RF: 0 lisinopril 40 mg tablet 40 mg PO DAILY Qty: 30 RF: 3 sotalol 160 mg Tablet 80 mg PO BID RF: 0 gabapentin 800 mg Tablet 800 mg PO TID RF: 0 ibuprofen 200 mg Tablet 600 mg PO Q4H PRN (Reason: Pain) RF: 0 fluticasone propionate [Flonase Allergy Relief] 50 mcg/actuation Early,Suspension 2 spray INTRANASAL DAILY PRN (Reason: Allergy Symptoms) RF: 0 rosuvastatin [Crestor] 40 mg Tablet 20 mg PO QPM RF: 0 Pain Relieving (m-salic-men) 15-1 % cream See Rx Instructions .ROUTE .COMPLEX RF: 0 hydrocodone-acetaminophen 5-325 mg tablet 1 tab PO BID PRN (Reason: PT STATES HAS BEEN OUT OF THIS MED FOR 3-4 WEEKS) RF: 0 metformin 1,000 mg tablet 1,000 mg PO BID RF: 0 Cinnamon 500 mg Capsule 1,500 mg PO DAILY RF: 0 Changed Lasix 20 mg Tablet 40 mg PO DAILY Qty: 0 RF: 0 Lantus Solostar U-100 Insulin 100 unit/mL (3 mL) insulin pen 20 unit SUBCUT DAILY 30 Days Qty: 20 RF: 0 Discontinued insulin aspart U-100 [Novolog Flexpen U-100 Insulin] 100 unit/mL (3 mL) insulin pen 30 unit SUBCUT BID RF: 0 No Action (DME) water aerobics See Rx Instructions .Route .MEDSUPPLY Qty: 1 RF: 0 Discharge Orders: Discharge Order (Routine); Ordered 08/30/21 Ordered By: Lillian Pascal Referrals: [employer]. [Other] ([facility] is open Thursday- from 8:00 a.m. to 4:30 p.m. and Thursday 8:00 a.m. to 12:00 p.m. (by appointment only). Please contact them at [phone] to see if they can assist you about the ramp for your house.) Trisha Urena MD [Primary Care Provider] - 09/10/21 2:30 pm (Please call on Thursday to schedule an appointment to be seen in one week.) Arnaldo Johns MD [Physician] - 09/10/21 11:15 am (Please call on Thursday to schedule an appointment to be seen in one week.) [facility], [Staff Physician] - 1 week (Please call on Thursday to schedule an appointment to be seen in one week.) Discharge Diet: Cardiac, Diabetic and Low Salt Discharge Activity: Use walker/crutches as instructed and As per PT/OT instructions Patient Instructions: Amoxicillin/Clavulanate Potassium (By mouth) (Augmentin, Augmentin..., Amlodipine (By mouth) (Hypertenipine-2.5, Norvasc), Insulin Aspart, Recombinant (By injection) (NovoLOG, NovoLOG FlexPen), Cellulitis (ED), Opioid Safety Activity Restrictions/Additional Instructions: Blood Glucose Sliding Scale (mg/dL)MODERATE DOSE DOSE 70 - 139 0 units 0 units 140 - 180 3 units subcut 181 - 240 4 units subcut 241 - 300 6 units subcut 301 - 350 8 units subcut 351 - 400 10 units subcut Discharge Attestations Time Spent in Discharge Care*: greater than 30 min Quality Metrics Clinical Quality Measures During this hospital stay, did patient experience: None Coding Level of Care Code Acute [facility] note Diagnoses Abscess of left foot L02.612 Acute exacerbation of CHF (congestive heart failure) I50.9 RAI (acute kidney injury) N17.9 HTN (hypertension) I10 Diabetes 1.5, managed as type 2 E13.9 Atrial fibrillation I48.91
--- NOTE | 2021-08-30 16:17 | PC.SOCIAL ---
IMM updated IMM dated and initialed and copy given to patient
[2021-08-30 17:12] VITALS: BP 133/75; PULSE 67; RESP 18; TEMP 36.8; O2SAT 94
--- NOTE | 2021-09-04 09:23 | PC.SOCIAL ---
discharge summary faxed to wound care for follow up appointment.
== END 2021-08-30 16:45 | disposition home or self-care (01) | DRG 853 ==
LOC: ER 18:05 → MEDSURG 19:16
PROVIDERS: Orthopaedic Surgery; Admitting Provider Internal Medicine; Emergency Provider Family Medicine; PCP Family Medicine; Visit Provider Internal Medicine
PROC: 0JBR0ZZ Excision of Left Foot Subcutaneous Tissue and Fascia, Open Approach (ICD-10-PCS; principal; 2021-08-27 12:00)
DX: A41.9 Sepsis, unspecified organism (principal); I50.33 Acute on chronic diastolic (congestive) heart failure; L97.429 Non-pressure chronic ulcer of left heel and midfoot with unspecified severity; L03.116 Cellulitis of left lower limb; N17.9 Acute kidney failure, unspecified; N39.0 Urinary tract infection, site not specified; L02.612 Cutaneous abscess of left foot; E13.621 Other specified diabetes mellitus with foot ulcer; I48.91 Unspecified atrial fibrillation; E11.42 Type 2 diabetes mellitus with diabetic polyneuropathy; Z85.46 Personal history of malignant neoplasm of prostate; I11.0 Hypertensive heart disease with heart failure; M48.062 Spinal stenosis, lumbar region with neurogenic claudication; G47.33 Obstructive sleep apnea (adult) (pediatric); Z87.891 Personal history of nicotine dependence; Z92.3 Personal history of irradiation; R31.9 Hematuria, unspecified; N20.0 Calculus of kidney; Z79.84 Long term (current) use of oral hypoglycemic drugs; Z79.891 Long term (current) use of opiate analgesic; Z79.01 Long term (current) use of anticoagulants
CPT/HCPCS: 36415; 36416; 36600; 51702; 71045; 73600; 73620; 73701; 74176; 80048; 80053; 80202; 81001; 82803; 82962; 83036; 83605; 83735; 84145; 84153; 84484; 84550; 85025; 85378; 85651; 86140; 87040; 87070; 87075; 87077; 87086; 87186; 87205; 93005; 93926; 93970; 96365; 96366; 96367; 96372; 99291; J1815 ×2; J2543; J2704; J3010; J3370; J3490; J7030; J7050; Q9967

== ENCOUNTER 2021-09-11 13:04 | Outpatient (CLI) | payer OTHER, SELFPAY | END 2021-09-11 13:05 | disposition home or self-care (01) | LOC: WOUND 13:05 | PROVIDERS: PCP Family Medicine; Visit Provider Thoracic Surgery (Cardiothoracic Vascular Surgery) | DX: I96 Gangrene, not elsewhere classified (principal); E11.621 Type 2 diabetes mellitus with foot ulcer; L97.422 Non-pressure chronic ulcer of left heel and midfoot with fat layer exposed; L97.522 Non-pressure chronic ulcer of other part of left foot with fat layer exposed | CPT/HCPCS: 11042; G0463 ==

== ENCOUNTER 2021-09-18 14:48 | Outpatient (CLI) | payer OTHER, SELFPAY | END 2021-09-18 14:49 | disposition home or self-care (01) | LOC: WOUND 14:53 | PROVIDERS: PCP Family Medicine; Visit Provider Thoracic Surgery (Cardiothoracic Vascular Surgery) | DX: E11.621 Type 2 diabetes mellitus with foot ulcer (principal); L97.422 Non-pressure chronic ulcer of left heel and midfoot with fat layer exposed; L97.522 Non-pressure chronic ulcer of other part of left foot with fat layer exposed | CPT/HCPCS: 11042 ==

== ENCOUNTER 2021-09-25 10:15 | Outpatient (CLI) | payer OTHER, SELFPAY | END 2021-09-25 10:16 | disposition home or self-care (01) | LOC: WOUND 10:15 | PROVIDERS: PCP Family Medicine; Visit Provider Nurse Practitioner Family | DX: I96 Gangrene, not elsewhere classified (principal); E11.621 Type 2 diabetes mellitus with foot ulcer; L97.422 Non-pressure chronic ulcer of left heel and midfoot with fat layer exposed | CPT/HCPCS: 11042 ==

== ENCOUNTER 2021-10-02 10:01 | Emergency (ER) | payer OTHER, MEDICARE, SELFPAY ==
[2021-10-02 10:02] VITALS: BP 202/105; PULSE 107; RESP 20; O2SAT 97; BMI 36.5
--- NOTE | 2021-10-02 10:18 | CT_ITS ---
WS: [id number] CT HEAD TECHNIQUE: Noncontrast CT of the head obtained from the skullbase to the vertex. CLINICAL INFORMATION: trauma COMPARISON: None. DLP: 790.[address] scans at [facility] use at least one of these dose optimization techniques: automated e xposure control; mA and/or kV adjustment per patient size (includes targeted exams where dose is matc hed to clinical indication); or iterative reconstruction. FINDINGS: No evidence of intracranial hemorrhage or mass effect. Ventricular system and basal cisterns are sood nt. Mild small vessel changes with moderate parenchymal volume loss. No extra-axial fluid collections . No evidence of mass or mass effect. Normal lazar-white differentiation. Paranasal sinuses and mastoid air cells are well aerated. Mild mucosal thickening ethmoid air cells. Polypoid mucosal thickening right maxillary sinus.. CT/CT head wo con* [id number] IMPRESSION: 1. No evidence of intracranial hemorrhage or mass effect. 2. Mild small vessel changes. Moderate parenchymal volume loss. 3. No acute intracranial findings.
--- NOTE | 2021-10-02 10:18 | XR_ITS ---
WS: [id number] Portable AP upright chest, 10/02/2021 Clinical Data: trauma Comparison: Portable chest, 08/23/2021. Findings: No nodules, masses or effusions are seen. The heart is normal. The pulmonary vascularity is not increased. No pneumonia or pneumothorax is seen. XR/XR chest 1V portable [id number] Impression: Negative chest.
--- NOTE | 2021-10-02 10:18 | XR_ITS ---
WS: [id number] Right hip, 2 views, AP pelvis, 10/02/2021 Clinical Data: trauma Comparison: None. Findings: No fractures or dislocations are seen. The right hip joint is intact. There is a right acetabular lip . The soft tissues are not remarkable. The adjacent pelvis is normal. No left hip fractures are seen. There is a left acetabular lip. The SI joints and pubic symphysis are unremarkable. There is contrast material in the bladder. XR/XR hip RT 2-3V wo/w pel* [id number] Impression: 1. Negative right hip. 2. Negative pelvis.
--- NOTE | 2021-10-02 10:18 | CT_ITS ---
WS: [id number] CT CHEST, ABDOMEN, AND PELVIS TECHNIQUE: Contrast-enhanced CT of the chest, abdomen, and pelvis with coronal and sagittal reformatt ed images. CLINICAL INFORMATION: trauma COMPARISON: CT abdomen pelvis August 23, 2021 DLP: 2208.[address] scans at [facility] use at least one of these dose optimization techniques: automated e xposure control; mA and/or kV adjustment per patient size (includes targeted exams where dose is matc hed to clinical indication); or iterative reconstruction. CT CHEST: The lungs are well aerated. No acute pulmonary infiltrates. Slight bibasilar atelectasis. No pneumoth orax. No focal pneumonia or pleural fluid. Small right lower pole thyroid nodule measuring 10 mm. Normal caliber thoracic aorta. No evidence of acute aortic injury. Normal caliber descending thoracic aorta. No mediastinal or hilar lymphadenopath y. No axillary lymphadenopathy. CT ABDOMEN AND PELVIS: Enlarged right hepatic lobe. Diffuse fatty infiltration of the liver. Incidental small hepatic cysts. Gallbladder is contracted. Normal GE junction. Normal stomach and duodenal C-loop. Normal spleen. Pancreas appears normal. Adrenal glands are normal. Normal renal parenchymal enhanceme nt. No hydronephrosis in the right kidney. Obstructing left proximal ureteral calculus measuring 6.4 mm. Mild left pelvocaliectasis and ureterectasis. Distal left ureter is decompressed. Mild prostate enlargement. Mild diffuse bladder wall thickening likely due to bladder outlet obstruct ion.Sigmoid diverticulosis. No free fluid in the abdomen or pelvis. Normal caliber abdominal aorta. No abdominal or pelvic lymphadenopathy. No inguinal lymphadenopathy. Grade 1 anterolisthesis L4 on L5. Disc space narrowing worse at L2-3 with slight retrolisthesis. Ante rior hypertrophic changes throughout the thoracic spine. Right posterior 10th chronic appearing rib f racture with callus formation. CT/CT chest abd pel w con* IMPRESSION: 1. No pneumothorax. 2. No evidence of acute aortic injury or mediastinal hematoma. 3. No evidence of solid organ injury in the abdomen or pelvis. No free fluid i n the abdomen or pelvis. 4. Obstructing left proximal ureteral calculus measuring 6.4 mm with mild left pelvocaliectasis and ureterectasis. This is new compared to August 23, 2021. 5. Mild prostate enlargement. Notified Cayetano Oropeza MD at 10/02/2021 11:25 AM.
--- NOTE | 2021-10-02 10:21 | CT_ITS ---
WS: [id number] CT CERVICAL TRAUMA TECHNIQUE: Noncontrast CT of the cervical spine with coronal and sagittal reformatted images. CLINICAL INFORMATION: trauma COMPARISON: MRI January 16, 2021 DLP: 872.[address] scans at [facility] use at least one of these dose optimization techniques: automated e xposure control; mA and/or kV adjustment per patient size (includes targeted exams where dose is matc hed to clinical indication); or iterative reconstruction. FINDINGS: Some images degraded by patient motion. Straightening of the normal cervical lordosis. 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 Alignment appe ars unchanged the prior MRI. Mild disc osteophyte complexes worse at C3-C4 and C5-C6. Mild central ca nal stenosis at these levels. Normal craniocervical junction. Normal C1-C2 articulation. Dens is norm al in appearance. Normal occipital condyles. Normal C1 ring. No evidence of acute fracture or disloca tion. Normal prevertebral soft tissues. Mastoids air cells are well aerated. CT/CT cervical spin wo con* [id number] IMPRESSION: No evidence of acute fracture or dislocation.
--- NOTE | 2021-10-02 10:22 | W.ED.FALL ---
HPI - Fall General: Chief Complaint: Fall Stated Complaint: FALL, PAIN LOWER EXT. HIP & SHOULDER Time Seen by Provider: 10/02/21 10:03 History of Present Illness: HPI Narrative: Patient comes in by EMS after a fall this morning. The patient is somewhat somnolent on exam secondary to the fentanyl he received in route. He states that he lost his balance and fell landing on his right hip. He complains of low back pain, right hip pain, and some mild abdominal pain. States he is on a blood thinner but does not know what it is. He denies hitting his head or passing out. Associated symptoms-after fall: Reports abdominal pain; Denies chest pain, headache(s) or neck pain Review of Systems Const: Denies: fever(s) or body aches Eyes: Denies: change in vision or blurry vision ENMT: Denies: throat pain or odynophagia Card: Denies: chest pain or palpitations Resp: Reports: dyspnea; Denies: productive cough GI: Reports: abdominal pain; Denies: nausea or vomiting : Denies: flank pain Musc: Reports: back pain; Denies: neck pain Skin/Breast: Denies: rash or pruritus Neuro: Denies: headache(s) or numbness in extremities Psych: Denies: anxiety or change in appetite Endo: Denies: polyuria or excessive sweating PFSH ED PFSH: Medical History (Updated 10/02/21 @ 15:29 by Cayetano Oropeza MD) Anticoagulation adequate with anticoagulant therapy Xarelto Atrial fibrillation Chronic anticoagulation Diabetes 1.5, managed as type 2 Diabetic neuropathy H/O prostate cancer HTN (hypertension) Low back pain Lumbar stenosis with neurogenic claudication Obstructive sleep apnea Refuses CPAP Surgical History History of back surgery History of pilonidal cyst S/P appendectomy S/P tonsillectomy Family History Grandmother Cancer MATERNAL Diabetes Grandfather Hypertension MATERNAL Diabetes Social History (Updated 10/01/21 @ 11:25 by Linnea Belle LPN) Alcohol intake: never Marital status: service: Yes branch: [employer] 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 travel: No Financial difficulty paying for basics: Very Hard Physical Exam Const: COMMON NORMALS: no acute distress and healthy appearing; negative for alert (Patient is somnolent throughout exam after getting fentanyl in the ambulanc) HENMT: COMMON NORMALS: normocephalic and atraumatic HEAD & SCALP: normocephalic and atraumatic Eye: COMMON NORMALS: Equal, round and reactive pupils present and EOMs intact bilaterally PUPIL: Yes Equal, round and reactive pupils present Neck/C-Spine: CERVICAL SPINE: No pain with cervical ROM and No Cervical spine tenderness Chest: COMMONS NORMALS: normal inspection of the chest Resp: COMMON NORMALS: normal respiratory effort, No retractions and No use of accessory muscles Cardio: COMMON NORMALS: regular rate and regular rhythm RATE: regular rate RHYTHM: regular rhythm GI: COMMON NORMALS: Normal to inspection, nondistended, normoactive bowel sounds present, Soft to palpation and non-tender PALPATION: Yes Soft to palpation Back/Pelvis: LUMBAR SPINE/LOWER BACK: Yes lumbar spinal tenderness PELVIS: Yes Other pelvic findings (Tenderness of right hip to palpation) COCCYX: Other pelvic findings (Tenderness of right hip to palpation) Extremity: COMMON NORMALS: normal to inspection and full ROM Neuro: SENSORIUM/ORIENTATION: No alert (Patient is somnolent throughout exam after getting fentanyl in the ambulanc) Skin: COMMON NORMALS: no rashes or lesions noted and no wounds GENERAL SKIN EXAM: no rashes or lesions noted Course ED course: Patient comes in with pain in his right hip and back after a fall. Upon arrival here the patient had received fentanyl in route and is somewhat somnolent so review of systems and history are difficult to obtain. He does awaken to voice and answers questions mostly. On physical exam he has tenderness to palpation of his right hip and his lower back. According to his chart he is on rivaroxaban. The patient agrees that he is on a blood thinner but does not know which one. Will check labs, x-ray, CT, and reassess. Reevaluation(s): Reevaluation #1: On reassessment I talked to the patient about the test results. He is more awake at this time and states that he has been having worsening back pain. He states he has chronic back pain, however his back pain has been worse recently. Reevaluation #2: On reassessment I talked to the patient about my discussion with urology. I talked him at length about his kidney stone and symptoms which prompt immediate return to the emergency department. Will discharge at this time with urology follow-up. Will encourage him to return to the emergency department for any worsening or changing symptoms. Vital Signs: Vital signs: Vital Signs Pulse Rate 107 H 10/02/21 10:02 Respiratory Rate 20 H 10/02/21 10:02 Blood Pressure 202/105 10/02/21 10:02 Pulse Oximetry 97 10/02/21 10:02 MDM - Fall Lab Data: Labs: Lab Results 10/02/21 10/02/21 10/02/21 11:25 11:25 12:33 WBC 20.4 10^3/uL H 10 ^3/uL (4.0-10.0) RBC 3.65 10^6/uL L 10 ^6/uL (4.1-5.3) Hgb 11.3 g/dL L g/dL (11.7-16.6) Hct 33.9 % L % (42.0-52.0) MCV 92.9 fl fl (80-94) MCH 31.0 pg pg (28.0-34.0) MCHC 33.3 g/dL g/dL (30.0-36.0) RDW 14.4 % % (12.1-15.1) Plt Count 288 10^3/cmm 10^3 /cmm (130-400) MPV 10.6 fL H fL (7.4-10.4) Neut % (Auto) 83.5 % % Lymph % (Auto) 7.1 % % [place] % (Auto) 7.4 % % Eos % (Auto) 0.5 % % Baso % (Auto) 0.5 % % Neut # (Auto) 17.03 10^3/uL H 1 0^3/uL (1.8-7.7) Lymph # (Auto) 1.5 10^3/uL 10^3/ uL (0.8-4.8) [place] # (Auto) 1.5 10^3/uL H 10^ 3/uL (0.2-0.9) Eos # (Auto) 0.1 10^3/uL 10^3/ uL (0.0-0.8) Baso # (Auto) 0.1 10^3/uL 10^3/ uL (0.0-0.1) Nucleated RBC % (a uto) 0 % % Nucleated RBCs # 0.0 /100WBC /100W BC Sodium 135 mmol/L L mmol /L (136-145) Potassium 4.5 mmol/L mmol/L (3.5-5.1) Chloride 98 mmol/L mmol/L (98-107) Carbon Dioxide 22 mmol/L mmol/L (22-29) Anion Gap 19.5 H (5-19) BUN 32 mg/dL H mg/dL (8-23) Creatinine 1.5 mg/dL H mg/dL (0.7-1.2) GFR Calculation Not Reportable Glucose 360 mg/dL H mg/dL (65-115) Calculated Osmolal ity 301 mOsm/kg H mOs m/kg (285-295) Calcium 8.9 mg/dL mg/dL (8.5-10.5) Magnesium 1.6 mg/dL L mg/dL (1.7-2.3) Total Bilirubin 0.6 mg/dL mg/dL (0.15-1.2) AST 11 U/L U/L (0-40) ALT 8 U/L U/L (0-41) Alkaline Phosphata se 60 IU/L IU/L (40-130) Creatine Kinase 161 U/L U/L (39-308) Total Protein 6.4 g/dL L g/dL (6.6-8.7) Albumin 3.6 g/dL g/dL (3.5-5.2) Globulin 2.8 g/dL g/dL (1.3-4.6) Urine Color Red (Yellow) Urine Appearance Cloudy (CLEAR) Urine pH 5 (5-7) Ur Specific Gravit y 1.020 (1.005-1.030) Urine Protein 3+ H (Negative) Urine Glucose (UA) 4+ H (Normal) Urine Ketones 1+ H (Negative) Urine Blood 3+ H (Negative) Urine Nitrate Negative (Negative) Urine Bilirubin Neg (Negative) Urine Urobilinogen Norm mg/dL mg/dL (Negative) Ur Leukocyte [place] Trace H (Negative) Urine RBC Too numerous to c nt /hpf H /hpf (0-2) Urine WBC 0-4 /hpf H /hpf (0-5) Ur Squamous Epith Cells 15-25 /hpf H /hpf (0-5) Amorphous Sediment Not Reportable Urine Bacteria Trace /hpf /hpf (NONE) Discharge Plan Discharge Patient Disposition: Home Clinical Impression: Kidney stone on left side Condition: Stable Prescriptions: New hydrocodone-acetaminophen 5-325 mg tablet 1 tab PO Q6H PRN (Reason: pain) Qty: 20 RF: 0 No Action omega-3 fatty acids [Fish Oil Concentrate] 1,000 mg capsule 1,000 mg PO BID RF: 0 digoxin 250 mcg (0.25 mg) tablet 250 mcg PO DAILY RF: 0 cholecalciferol (vitamin D3) [Vitamin D3] 25 mcg (1,000 unit) capsule 3,000 unit PO DAILY RF: 0 Xarelto 20 mg tablet 20 mg PO DAILY RF: 0 (DME) water aerobics See Rx Instructions .Route .MEDSUPPLY Qty: 1 RF: 0 lisinopril 40 mg tablet 40 mg PO DAILY Qty: 30 RF: 3 sotalol 160 mg Tablet 80 mg PO BID RF: 0 gabapentin 800 mg Tablet 800 mg PO TID RF: 0 ibuprofen 200 mg Tablet 600 mg PO Q4H PRN (Reason: Pain) RF: 0 fluticasone propionate [Flonase Allergy Relief] 50 mcg/actuation [place],Suspension 2 spray INTRANASAL DAILY PRN (Reason: Allergy Symptoms) RF: 0 rosuvastatin [Crestor] 40 mg Tablet 20 mg PO QPM RF: 0 Pain Relieving (m-salic-men) 15-1 % cream See Rx Instructions .ROUTE .COMPLEX RF: 0 hydrocodone-acetaminophen 5-325 mg tablet 1 tab PO BID PRN (Reason: PT STATES HAS BEEN OUT OF THIS MED FOR 3-4 WEEKS) RF: 0 metformin 1,000 mg tablet 1,000 mg PO BID RF: 0 Cinnamon 500 mg Capsule 1,500 mg PO DAILY RF: 0 Lasix 20 mg Tablet 40 mg PO DAILY Qty: 0 RF: 0 Novolog Flexpen U-100 Insulin 100 unit/mL (3 mL) insulin pen See Rx Instructions .ROUTE .COMPLEX Qty: 15 RF: 2 Lantus Solostar U-100 Insulin 100 unit/mL (3 mL) insulin pen 20 unit SUBCUT DAILY 30 Days Qty: 20 RF: 0 Discharge Orders: Discharge ED (Routine); Ordered 10/02/21 Ordered By: Cayetano Oropeza Referrals: Trisha Urena MD [Primary Care Provider] - Patient Instructions: Opioid Safety Activity Restrictions/Additional Instructions: Return to the emergency department for uncontrolled vomiting, difficulty breathing, or uncontrolled pain. Coding Level of Care Code ED Fruit Buyer for Chg Fwd Exam Comprehensive
[2021-10-02] MEDS: iodixanol 320 mg/mL 100mL Btl IV (10:45)
[2021-10-02 11:30] LABS: Basophils # 0.1 10^3/uL (0.0-0.1); Basophils % 0.5 %; Eosinophils # 0.1 10^3/uL (0.0-0.8); Eosinophils % 0.5 %; Hematocrit 33.9 % (42.0-52.0); Hemoglobin 11.3 g/dL (11.7-16.6); Lymphocytes # 1.5 10^3/uL (0.8-4.8); Lymphocytes % 7.1 %; Mean Corpuscular HGB Conc 33.3 g/dL (30.0-36.0); Mean Corpuscular Volume 92.9 fl (80-94); Mean Platelet Volume 10.6 fL (7.4-10.4); Monocytes # 1.5 10^3/uL (0.2-0.9); Monocytes % 7.4 %; Neutrophils # 17.03 10^3/uL (1.8-7.7); Neutrophils % 83.5 %; Nucleated Red Blood Cells % 0 %; Platelet Count 288 10^3/cmm (130-400); Red Blood Count 3.65 10^6/uL (4.1-5.3); Red Cell Distribution Width 14.4 % (12.1-15.1); White Blood Count 20.4 10^3/uL (4.0-10.0)
[2021-10-02 11:47] LABS: Alanine Aminotransferase 8 U/L (0-41); Albumin Level 3.6 g/dL (3.5-5.2); Alkaline Phosphatase 60 IU/L (40-130); Anion Gap 19.5 (5-19); Aspartate Amino Transferase 11 U/L (0-40); Blood Urea Nitrogen 32 mg/dL (8-23); Calcium 8.9 mg/dL (8.5-10.5); Carbon Dioxide 22 mmol/L (22-29); Chloride 98 mmol/L (98-107); Creatine Phosphokinase 161 U/L (39-308); Globulin 2.8 g/dL (1.3-4.6); Glucose 360 mg/dL (65-115); Magnesium 1.6 mg/dL (1.7-2.3); Osmolality Calculated 301 mOsm/kg (285-295); Potassium 4.5 mmol/L (3.5-5.1); Sodium 135 mmol/L (136-145); Total Bilirubin 0.6 mg/dL (0.15-1.2); Total Protein 6.4 g/dL (6.6-8.7)
[2021-10-02 13:10] LABS: Add Urine Microscopic? YES; Bilirubin Urine Neg (Negative); Blood Urine 3+ (Negative); Glucose Urine UA 4+ (Normal); Ketones Urine 1+ (Negative); Leukocyte Esterase Urine Trace (Negative); Nitrate Urine Negative (Negative); Protein Urine 3+ (Negative); Urine Appearance Cloudy (CLEAR); Urine Color Red (Yellow); Urobilinogen Urine Norm (Negative); pH Urine 5 (5-7)
[2021-10-02 13:25] LABS: RBC Urine TOO NUMEROUS TO CNT /hpf (0-2); Squamous Epithelial Cell Urine 15-25 /hpf (0-5); WBC Urine 0-4 /hpf (0-5)
[2021-10-02 13:26] LABS: Add Urine Culture? No; Bacteria Urine TRACE /hpf
[2021-10-02 15:56] VITALS: BP 135/86; PULSE 97; RESP 18; O2SAT 92
--- NOTE | 2021-10-03 07:56 | DCPLANNER ---
Addendum entered by Omaira Vasquez 10/18/21 06:04: Patient had an appointment scheduled with Dr. Paul, appointment was cancelled due to patient having surgery. Original Note: client delivery manager had message to schedule a follow up appointment for patient with Dr. Paul. client delivery manager emailed patients information to Phill Singh and Marti in the office of Dr. Paul. Patients information will be printed and reviewed. Clinic will call patient with appointment information.
== END 2021-10-02 16:09 | disposition home or self-care (01) ==
PROVIDERS: Emergency Provider Emergency Medicine; PCP Family Medicine
DX: N20.0 Calculus of kidney (principal); Z79.4 Long term (current) use of insulin; E13.9 Other specified diabetes mellitus without complications; Z85.46 Personal history of malignant neoplasm of prostate; I10 Essential (primary) hypertension
CPT/HCPCS: 51701; 70450; 71045; 71260; 72125; 73502; 74177; 80053; 81001; 82550; 83735; 85025; 99283; Q9967

== ENCOUNTER 2021-10-03 10:18 | Inpatient (IN) | payer OTHER, MEDICARE, SELFPAY ==
[2021-10-03] VITALS (20 sets, daily range): BP systolic 106–193; BP diastolic 56–88; PULSE 80–100; RESP 15–44; TEMP 37.6–39.2; O2SAT 85–99; BMI 33.4
--- NOTE | 2021-10-03 | SCC_ITS ---
Procedure Done: 1. Cystoscopy with left ureteral stent placement (7 Japanese by 28 cm double-pigtail no string 12.2 seconds of fluoroscopic guidance, for a cumulative dose of 4.49 mGy, was provided to Dr. Paul by the radiology department. C-arm images of the abdomen were saved for the patient's permanent record. [facility]
--- NOTE | 2021-10-03 10:21 | W.ED.MALEGU ---
HPI - Male Genitourinary General: Chief complaint: Shortness of Breath/Dyspnea Stated complaint: KIDNEY STONE, SOB, CONFUSION Time Seen by Provider: 10/03/21 10:20 History of Present Illness: HPI Narrative: 69-year-old male presents to the emergency room via EMS. He is having acute delirium. He was seen yesterday after a fall essentially had castano scan done was found to have a 6.8 mm proximally ureteral stone on the left. He is really not able to give any helpful history he mumbles different responses most of which do not make any sense. Onset (ago): hour(s) Duration: constant Context: other ( left nephrollihiasis) Associated symptoms: Reports fevers/chills Review of Systems General: Reports: ROS unobtainable due to medical condition and ROS unobtainable due to mental status [facility] ED PFSH: Medical History Anticoagulation adequate with anticoagulant therapy Xarelto Atrial fibrillation Chronic anticoagulation Diabetes 1.5, managed as type 2 Diabetic neuropathy H/O prostate cancer HTN (hypertension) Low back pain Lumbar stenosis with neurogenic claudication Obstructive pyelonephritis Obstructive sleep apnea Refuses CPAP Surgical History History of back surgery History of pilonidal cyst S/P appendectomy S/P tonsillectomy Family History Grandmother Cancer MATERNAL Diabetes Grandfather Hypertension MATERNAL Diabetes Social History Smoking and tobacco status: former smoker Alcohol intake: never Marital status: service: Yes branch: [employer] 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 travel: No Financial difficulty paying for basics: Very Hard Physical Exam Const: ORIENTATION/CONSCIOUSNESS: Yes oriented to person, Yes oriented to place and Yes oriented to time HENMT: COMMON NORMALS: normocephalic, atraumatic, hearing grossly normal bilaterally, external ears normal, EAC's normal, TM's normal bilaterally, Normal nasal mucous membranes and turbinates present, moist oral mucous membranes and oropharynx normal HEAD & SCALP: normocephalic and atraumatic NOSE: Normal nasal mucous membranes and turbinates present EXTERNAL EAR: Yes external ears normal EXTERNAL AUDITORY CANAL: EAC's normal TYMPANIC MEMBRANE: TM's normal bilaterally Eye: COMMON NORMALS: Equal, round and reactive pupils present, EOMs intact bilaterally, conjunctivae normal and no scleral icterus CONJUNCTIVA: Yes conjunctivae normal PUPIL: Yes Equal, round and reactive pupils present Neck/C-Spine: COMMON NORMALS: full ROM, no lymphadenopathy, supple and no JVD Lymph: LYMPHATIC: no lymphadenopathy noted and no lymphedema noted Resp: AUSCULTATION: rhonchi and wheezes Cardio: COMMON NORMALS: no JVD GI: COMMON NORMALS: Soft to palpation and No hepatosplenomegaly present AUSCULTATION: Yes normoactive bowel sounds PALPATION: Yes Soft to palpation, No Tenderness to palpation present (GI), No Guarding due to palpation present (GI) and Yes No hepatosplenomegaly present Extremity: COMMON NORMALS: normal to inspection, capillary refill normal, no clubbing, cyanosis or edema, no calf tenderness and no pedal edema Neuro: SENSORIUM/ORIENTATION: Yes oriented to person, Yes oriented to place and Yes oriented to time Skin: COMMON NORMALS: no rashes or lesions noted GENERAL SKIN EXAM: no rashes or lesions noted Course Vital Signs: Vital signs: Vital Signs Temperature 100.5 F H 10/03/21 10:36 Pulse Rate 90 10/03/21 12:04 Respiratory Rate 37 H 10/03/21 12:04 Blood Pressure 140/75 10/03/21 12:04 Pulse Oximetry 95 10/03/21 13:20 MDM - Male [facility] Narrative: Medical decision making narrative: Sepsis secondary to obstructive pyelonephritis. Discussed with Dr. Paul. Patient will proceed directly to the OR from here he is on anticoagulation however given circumstances they will need to proceed regardless. Also discussed with hospitalist they will admit postoperatively to the floor. Antibiotics cultures have not been initiated. Lab Data: Labs: Lab Results 10/03/21 10/03/21 10/03/21 10:36 10:46 10:46 WBC 21.8 10^3/uL H 10 ^3/uL (4.0-10.0) RBC 3.91 10^6/uL L 10 ^6/uL (4.1-5.3) Hgb 12.0 g/dL g/dL (11.7-16.6) Hct 36.2 % L % (42.0-52.0) MCV 92.6 fl fl (80-94) MCH 30.7 pg pg (28.0-34.0) MCHC 33.1 g/dL g/dL (30.0-36.0) RDW 14.6 % % (12.1-15.1) Plt Count 296 10^3/cmm 10^3 /cmm (130-400) MPV 10.7 fL H fL (7.4-10.4) Neut % (Auto) 84.3 % % Lymph % (Auto) 5.7 % % [place] % (Auto) 8.5 % % Eos % (Auto) 0.1 % % Baso % (Auto) 0.4 % % Neut # (Auto) 18.35 10^3/uL H 1 0^3/uL (1.8-7.7) Lymph # (Auto) 1.2 10^3/uL 10^3/ uL (0.8-4.8) [place] # (Auto) 1.9 10^3/uL H 10^ 3/uL (0.2-0.9) Eos # (Auto) 0.0 10^3/uL 10^3/ uL (0.0-0.8) Baso # (Auto) 0.1 10^3/uL 10^3/ uL (0.0-0.1) Nucleated RBC % (a uto) 0 % % Nucleated RBCs # 0.0 /100WBC /100W BC Specimen Type Sample Site ABG pH ABG pCO2 ABG pO2 ABG HCO3 ABG O2 Saturation ABG Base Excess [place] Test A-a O2 Gradient Hematocrit Hgb O2 Saturation Carboxyhemoglobin Methemoglobin Total Hemoglobin Ionized Calcium O2 Delivery Device O2 Liters/Min Package Crimper ID Sodium 134 mmol/L L mmol /L (136-145) Potassium 4.3 mmol/L mmol/L (3.5-5.1) Chloride 96 mmol/L L mmol/ L (98-107) Carbon Dioxide 24 mmol/L mmol/L (22-29) Anion Gap 18.3 (5-19) BUN 35 mg/dL H mg/dL (8-23) Creatinine 1.5 mg/dL H mg/dL (0.7-1.2) GFR Calculation Not Reportable Glucose 437 mg/dL H mg/dL (65-115) POC Glucose 478 mg/dL H mg/dL (70-110) Calculated Osmolal ity 305 mOsm/kg H mOs m/kg (285-295) Lactic Acid Calcium 9.3 mg/dL mg/dL (8.5-10.5) Magnesium 1.9 mg/dL mg/dL (1.7-2.3) Troponin T Baselin e Troponin T 120 Min [place] Troponin T NT-Pro-B Natriuret Pep 3018 pg/mL H pg/m L (0-125) Lipase 56 U/L U/L (13-60) Urine Color Urine Appearance Urine pH Ur Specific Gravit y Urine Protein Urine Glucose (UA) Urine Ketones Urine Blood Urine Nitrate Urine Bilirubin Urine Urobilinogen Ur Leukocyte Mary [place] Urine RBC Urine WBC Ur Squamous Epith Cells Amorphous Sediment Urine Bacteria Urine Yeast Serum Ketones SARS-CoV-2 Ag (Rap id) 10/03/21 10/03/21 10/03/21 10:46 10:46 10:46 WBC RBC Hgb Hct MCV MCH MCHC RDW Plt Count MPV Neut % (Auto) Lymph % (Auto) [place] % (Auto) Eos % (Auto) Baso % (Auto) Neut # (Auto) Lymph # (Auto) [place] # (Auto) Eos # (Auto) Baso # (Auto) Nucleated RBC % (a uto) Nucleated RBCs # Specimen Type Sample Site ABG pH ABG pCO2 ABG pO2 ABG HCO3 ABG O2 Saturation ABG Base Excess [place] Test A-a O2 Gradient Hematocrit Hgb O2 Saturation Carboxyhemoglobin Methemoglobin Total Hemoglobin Ionized Calcium O2 Delivery Device O2 Liters/Min Package Crimper ID Sodium Potassium Chloride Carbon Dioxide Anion Gap BUN Creatinine GFR Calculation Glucose POC Glucose Calculated Osmolal ity Lactic Acid 2.0 mmol/L mmol/L (0.5-2.2) Calcium Magnesium Troponin T Baselin e 54 ng/L H ng/L (0-15) Troponin T 120 Min [place] Troponin T NT-Pro-B Natriuret Pep Lipase Urine Color Urine Appearance Urine pH Ur Specific Gravit y Urine Protein Urine Glucose (UA) Urine Ketones Urine Blood Urine Nitrate Urine Bilirubin Urine Urobilinogen Ur Leukocyte [place] Urine RBC Urine WBC Ur Squamous Epith Cells Amorphous Sediment Urine Bacteria Urine Yeast Serum Ketones Negative (Negative) SARS-CoV-2 Ag (Rap id) 10/03/21 10/03/21 10/03/21 10:52 11:00 11:50 WBC RBC Hgb Hct MCV MCH MCHC RDW Plt Count MPV Neut % (Auto) Lymph % (Auto) [place] % (Auto) Eos % (Auto) Baso % (Auto) Neut # (Auto) Lymph # (Auto) [place] # (Auto) Eos # (Auto) Baso # (Auto) Nucleated RBC % (a uto) Nucleated RBCs # Specimen Type Arterial Sample Site Brachial, right ABG pH 7.32 L (7.35-7.45) ABG pCO2 54.9 mmHg H mmHg (35-45) ABG pO2 283.0 mmHg H mmHg (80.0-100.0) ABG HCO3 28.0 mmol/L H mmo l/L (22-26) ABG O2 Saturation > 100.0 ABG Base Excess 0.9 mmol/L mmol/L (-2.0-2.0) [place] Test Pos A-a O2 Gradient Not Reportable Hematocrit 36.5 % L % (42-52) Hgb O2 Saturation > 100.0 % H % (95-100) Carboxyhemoglobin 1.2 %THgb %THgb (0.4-20.1) Methemoglobin < 0.0 % L % (0.4-1.5) Total Hemoglobin 11.9 g/dL L g/dL (14-18) Ionized Calcium 1.2 mmol/L mmol/L (1.1-1.4) O2 Delivery Device Nrb O2 Liters/Min 15.0 % % Package Crimper ID [place] Sodium 139.0 mmol/L mmol /L (131-143) Potassium 4.3 mmol/L mmol/L (3.5-5.0) Chloride Carbon Dioxide Anion Gap BUN Creatinine GFR Calculation Glucose 467.0 mg/dL H mg/ dL (70-115) POC Glucose Calculated Osmolal ity Lactic Acid Calcium Magnesium Troponin T Baselin e Troponin T 120 Min [place] Troponin T NT-Pro-B Natriuret Pep Lipase Urine Color Yellow (Yellow) Urine Appearance Hazy A (CLEAR) Urine pH 5 (5-7) Ur Specific Gravit y 1.015 (1.005-1.030) Urine Protein 2+ H (Negative) Urine Glucose (UA) 4+ H (Normal) Urine Ketones Negative (Negative) Urine Blood 3+ H (Negative) Urine Nitrate Negative (Negative) Urine Bilirubin Neg (Negative) Urine Urobilinogen Norm mg/dL mg/dL (Negative) Ur Leukocyte [place] Negative (Negative) Urine RBC None /hpf /hpf (0-2) Urine WBC 15-25 /hpf H /hpf (0-5) Ur Squamous Epith Cells 0-4 /hpf H /hpf (0-5) Amorphous Sediment Trace /hpf /hpf Urine Bacteria Trace /hpf /hpf (NONE) Urine Yeast 3+ /hpf H /hpf Serum Ketones SARS-CoV-2 Ag (Rap id) Negative (Negative) 10/03/21 10/03/21 12:47 13:52 WBC RBC Hgb Hct MCV MCH MCHC RDW Plt Count MPV Neut % (Auto) Lymph % (Auto) [place] % (Auto) Eos % (Auto) Baso % (Auto) Neut # (Auto) Lymph # (Auto) [place] # (Auto) Eos # (Auto) Baso # (Auto) Nucleated RBC % (a uto) Nucleated RBCs # Specimen Type Sample Site ABG pH ABG pCO2 ABG pO2 ABG HCO3 ABG O2 Saturation ABG Base Excess [place] Test A-a O2 Gradient Hematocrit Hgb O2 Saturation Carboxyhemoglobin Methemoglobin Total Hemoglobin Ionized Calcium O2 Delivery Device O2 Liters/Min Package Crimper ID Sodium Potassium Chloride Carbon Dioxide Anion Gap BUN Creatinine GFR Calculation Glucose POC Glucose 426 mg/dL H mg/dL (70-110) Calculated Osmolal ity Lactic Acid Calcium Magnesium Troponin T Baselin e Troponin T 120 Min [place] 55.13 ng/L H ng/L (0-15) [place] Troponin T 1.13 ABS# ABS# (0-10) NT-Pro-B Natriuret Pep Lipase Urine Color Urine Appearance Urine pH Ur Specific Gravit y Urine Protein Urine Glucose (UA) Urine Ketones Urine Blood Urine Nitrate Urine Bilirubin Urine Urobilinogen Ur Leukocyte [place] Urine RBC Urine WBC Ur Squamous Epith Cells Amorphous Sediment Urine Bacteria Urine Yeast Serum Ketones SARS-CoV-2 Ag (Rap id) Discharge Plan Discharge Patient Disposition: Admitted As Inpatient Admit Provider: Misael Paul Clinical Impression: Obstructive pyelonephritis, Atrial fibrillation, 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 mellitus, HTN (hypertension), Left ureteral calculus, Anticoagulation adequate with anticoagulant therapy Condition: Stable Coding Level of Care Code ED Mental Health Social Worker for Say Muñoz
--- NOTE | 2021-10-03 10:29 | ECG_ITS ---
[facility] Test Date: 2021-10-03 Pat Name: Raphael Deal Department: Room: Gender: Male Sample Sewer: : 1950 Requested By: Fermin Chavez Order Number: [id number] Nilay MD: Aleks Narvaez M.D. Measurements Intervals Roff Rate: 95 P: 93 MD: 194 QRS: 81 QRSD: 137 T: 14 QT: 418 QTc: 527 Interpretive Statements SINUS RHYTHM RIGHT BUNDLE BRANCH BLOCK [120+ ms QRS DURATION, UPRIGHT V1, 40+ ms S IN I/aVL/V4/V5/V6] Compared to ECG 08/23/2021 21:32:01 Ventricular premature complex(es) no longer present Electronically Signed On 10-03-2021 22:00:58 SUPERVISOR MAINTENANCE by Aleks Narvaez M.D. [email or web address] [facility].[employer]/store/[id number] f
--- NOTE | 2021-10-03 10:29 | XR_ITS ---
WS: [id number] Portable AP upright chest, 10/03/2021 Clinical Data: dyspnea/cough Comparison: Portable chest, 10/02/2021. Findings: No nodules, masses or effusions are seen. The heart is normal. The pulmonary vascularity is not increased. No pneumothorax is seen. Minimal patchy basilar opacities have developed since yester day. The aortic arch and descending aorta show mild tortuosity. XR/XR chest 1V portable [id number] Impression: 1. Minimal basilar patchy opacities recently developed. 2. Atherosclerosis.
--- NOTE | 2021-10-03 10:34 | CT_ITS ---
WS: [id number] CT HEAD TECHNIQUE: Noncontrast CT of the head obtained from the skullbase to the vertex. CLINICAL INFORMATION: Fall anticoagulants COMPARISON: CT September 22, 2021 DLP: 757.[address] scans at [facility] use at least one of these dose optimization techniques: automated e xposure control; mA and/or kV adjustment per patient size (includes targeted exams where dose is matc hed to clinical indication); or iterative reconstruction. FINDINGS: No evidence of intracranial hemorrhage or mass effect. Ventricular system and basal cisterns are sood nt. Mild small vessel changes with moderate parenchymal volume loss. No extra-axial fluid collections . No evidence of mass or mass effect. Normal lazar-white differentiation. Retention cysts right maxillary sinus. Mastoid air cells are well aerated. CT/CT head wo con* [id number] IMPRESSION: 1. No evidence of intracranial hemorrhage or mass effect. 2. Mild small vessel changes. Moderate parenchymal volume loss. 3. No acute intracranial findings.
--- NOTE | 2021-10-03 10:35 | CT_ITS ---
WS: [id number] CT ABDOMEN PELVIS TECHNIQUE: Noncontrast CT of the abdomen and pelvis with coronal and sagittal reformatted images. CLINICAL INFORMATION: L proximal ureterolithiasis - appears septic COMPARISON: CT October 02, 2021 DLP: 1902.[address] scans at [facility] use at least one of these dose optimization techniques: automated e xposure control; mA and/or kV adjustment per patient size (includes targeted exams where dose is matc hed to clinical indication); or iterative reconstruction. FINDINGS: Persistent left renal nephrogram with no significant contrast distal to the left proximal ureteral ca lculus previously described measuring 6.4 mm. Mild left ureterectasis and pelvocaliectasis. Striated left renal parenchymal enhancement consistent with pyelonephritis. Normal excretion of the right kidn ey. No hydronephrosis in right kidney. No other significant changes from October 02, 2021. Slight patchy atelectasis right lower lobe. Hepa tomegaly. Normal GE junction. Adrenal glands are normal. Sigmoid diverticulosis. Normal caliber abdominal aorta. No free fluid in the abdomen or pelvis. Hyper trophic changes thoracic and lumbar spine. CT/CT kidney stone [id number] IMPRESSION: 1. Persistent left renal nephrogram with high-grade obstruction from the 6.4 m m proximal ureteral calculus. Mild ureterectasis and mild hydronephrosis. Stria carmen nephrogram compatible with pyelonephritis. 2. No hydronephrosis in right kidney. 3. No other significant changes since October 02, 2021. Notified Fermin Mijares DO at 10/03/2021 11:36 AM.
[2021-10-03 10:39] LABS: Glucose Point of Care 478 mg/dL (70-110)
[2021-10-03 10:57] LABS: Basophils # 0.1 10^3/uL (0.0-0.1); Basophils % 0.4 %; Eosinophils % 0.1 %; Hematocrit 36.2 % (42.0-52.0); Lymphocytes # 1.2 10^3/uL (0.8-4.8); Lymphocytes % 5.7 %; Mean Corpuscular HGB Conc 33.1 g/dL (30.0-36.0); Mean Corpuscular Hemoglobin 30.7 pg (28.0-34.0); Mean Corpuscular Volume 92.6 fl (80-94); Mean Platelet Volume 10.7 fL (7.4-10.4); Monocytes # 1.9 10^3/uL (0.2-0.9); Monocytes % 8.5 %; Neutrophils # 18.35 10^3/uL (1.8-7.7); Neutrophils % 84.3 %; Nucleated Red Blood Cells % 0 %; Platelet Count 296 10^3/cmm (130-400); Red Blood Count 3.91 10^6/uL (4.1-5.3); Red Cell Distribution Width 14.6 % (12.1-15.1); White Blood Count 21.8 10^3/uL (4.0-10.0)
[2021-10-03 11:12] LABS: Ketone (Acetest) Serum Negative (Negative)
[2021-10-03 11:16] LABS: ABG PCO2 54.9 mmHg (35-45); ABG PH Result 7.32 (7.35-7.45); Arterial Blood Gas Hematocrit 36.5 % (42-52); Base Excess ABG 0.9 mmol/L (-2.0-2.0); Blood Gas Allen Test Pos; Blood Gas Sample Site Brachial, right; Blood Gas Sample Type Arterial; Carboxyhemoglobin 1.2 %THgb (0.4-20.1); HGB O2 Sat > 100.0 % (95-100); Ionized Calcium Level - ABG 1.2 mmol/L (1.1-1.4); Methemoglobin < 0.0 % (0.4-1.5); Oxygen Device NRB; Oxygen Saturation ABG > 100.0; Potassium Level - ABG 4.3 mmol/L (3.5-5.0); Total Hemoglobin 11.9 g/dL (14-18)
[2021-10-03 11:21] LABS: Troponin(5th) Baseline 54 ng/L (0-15)
[2021-10-03 11:29] LABS: SARS Covid-2 Antigen Negative (Negative)
[2021-10-03 11:30] LABS: Anion Gap 18.3 (5-19); Blood Urea Nitrogen 35 mg/dL (8-23); Calcium 9.3 mg/dL (8.5-10.5); Carbon Dioxide 24 mmol/L (22-29); Chloride 96 mmol/L (98-107); Glucose 437 mg/dL (65-115); Lipase 56 U/L (13-60); Magnesium 1.9 mg/dL (1.7-2.3); NT Pro B Type Natriuretic Pept 3018 pg/mL (0-125); Osmolality Calculated 305 mOsm/kg (285-295); Potassium 4.3 mmol/L (3.5-5.1); Sodium 134 mmol/L (136-145)
[2021-10-03] MEDS: cefTRIAXone 1,000 MG in sodium chloride 0.9% (plus) 50 ML 100 MG IV (11:43)
[2021-10-03] MEDS: insulin regular-human 100 units/1 mL 15 UNIT IVP (11:43)
--- NOTE | 2021-10-03 11:59 | P.CONIM_ITS ---
Providers/Reason For Consult Consulting Physician/Specialty*: Paul/urology Reason for Consult*: Evidence of obstructive pyelonephritis Primary Care Provider: Trisha Urena MD History of Present Illness History of Present Illness Raphael Deal is a 71 year old male who was seen in the emergency department yesterday and was found to have an obstructing 6.4 mm left proximal ureteral stone. He had multiple other symptoms that were not directly related to the stone but abdominal pain was present and probably coming from the stone. Did have a mildly elevated white count. Was not septic. Treated conservatively and discharged home but presented back again today with more obtunded status with appearance of sepsis. White count had increased from [address] to over 20,000[address] CT SCAN WITHOUT CONTRAST SHOWED PERSISTENCE OF HIGH-GRADE OBSTRUCTION FROM THE STONE IN THE left proximal ureter. Based on concern for obstructive pyelonephritis I was consulted and have recommended emergency left ureteral stent placement. He looks actually very frail. He will be placed on the hospitalist service likely ICU. Review of Systems Const: Reports: chills and malaise Eyes: Denies: change in vision ENMT: Denies: odynophagia or hoarseness Card: Denies: chest pain or palpitations Resp: Reports: dyspnea, productive cough and stridor GI: Reports: abdominal pain and nausea : Reports: flank pain Musc: Denies: joint redness Skin/Breast: Denies: rash or pruritus Neuro: Reports: weakness in extremities Psych: Denies: anxiety or depression Felix/Lymph: Denies: easy bruising or easy bleeding All/Imm: Denies: urticaria Meds/Allergies Home Medications and Allergies Home Medications Medication Instructions Recorded Confirmed Last Taken Type cholecalciferol (vitamin D3) 25 3,000 unit PO DAILY 11/07/19 10/03/21 03/19/21 History mcg (1,000 unit) capsule digoxin 250 mcg (0.25 mg) tablet 250 mcg PO DAILY 11/07/19 10/03/21 03/19/21 History omega-3 fatty acids 1,000 mg 1,000 mg PO TID 11/07/19 10/03/21 03/19/21 History capsule rivaroxaban 20 mg tablet 20 mg PO DAILY 11/07/19 10/03/21 03/16/21 History fluticasone propionate [Flonase 2 spray INTRANASAL DAILY PRN 05/07/20 10/03/21 Unknown History Allergy Relief] gabapentin 800 mg PO TID 05/07/20 10/03/21 10/03/21 History ibuprofen 600 mg PO Q4H PRN 05/07/20 10/03/21 Unknown History rosuvastatin [Crestor] 20 mg PO QPM 05/07/20 10/03/21 03/19/21 History sotalol 80 mg PO BID 05/07/20 10/03/21 03/19/21 History water aerobics #1 ea 05/09/21 10/03/21 Unknown Rx metformin 1,000 mg PO BID 08/23/21 10/03/21 Unknown History Lantus Solostar U-100 Insulin 20 unit SUBCUT DAILY 30 Days #20 ml 08/30/21 10/03/21 10/03/21 09:00 Rx insulin aspart U-100 [Novolog See Rx Instructions .ROUTE 08/30/21 10/03/21 10/03/21 09:00 Rx Flexpen U-100 Insulin] .COMPLEX #15 ml 6 units hydrocodone-acetaminophen 1 tab PO Q6H PRN #20 tab 10/02/21 10/03/21 Unknown Rx Lasix See Rx Instructions .ROUTE .COMPLEX 10/03/21 10/03/21 Unknown History albuterol sulfate [ProAir HFA] 2 puff INHALATION Q4H PRN 10/03/21 10/03/21 Unknown History amlodipine 5 mg PO DAILY 10/03/21 10/03/21 Unknown History fluticasone propion-salmeterol 1 inh INHALATION BID 10/03/21 10/03/21 Unknown History [Wixela Inhub] lisinopril 40 mg PO QAM 10/03/21 10/03/21 Unknown History sodium chloride See Rx Instructions .ROUTE .COMPLEX 10/03/21 10/03/21 Unknown History tamsulosin 0.4 mg PO QPM 10/03/21 10/03/21 Unknown History Allergies Allergy/AdvReac Type Severity Reaction Status Date / Time No Known Allergies Allergy Verified 10/03/21 11:09 Current Medications Current Medications Generic Name Dose Route Start Last Admin Trade Name Freq PRN Reason Stop Dose Admin Ceftriaxone Sodium 1,000 mg/ 50 mls @ 100 mls/hr 10/03/21 11:31 10/03/21 11:43 Sodium Chloride IV 10/03/21 12:00 100 mls/hr ONCE ONE Administration Protocol PFSH Acute PFSH: Medical History Anticoagulation adequate with anticoagulant therapy Xarelto Atrial fibrillation Chronic anticoagulation Diabetes 1.5, managed as type 2 Diabetic neuropathy H/O prostate cancer HTN (hypertension) Low back pain Lumbar stenosis with neurogenic claudication Obstructive pyelonephritis Obstructive sleep apnea Refuses CPAP Surgical History History of back surgery History of pilonidal cyst S/P appendectomy S/P tonsillectomy Family History Grandmother Cancer MATERNAL Diabetes Grandfather Hypertension MATERNAL Diabetes Social History Alcohol intake: never Marital status: service: Yes branch: [employer] 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 travel: No Financial difficulty paying for basics: Very Hard Vitals/I&O/Wt Last Vital Signs Temp 100.5 F H 10/03/21 10:36 Pulse 93 10/03/21 11:38 Resp 36 H 10/03/21 10:50 BP 193/88 10/03/21 10:50 Pulse Ox 96 10/03/21 11:38 Weight last 48 hrs Weight 220 lb Physical Exam Const: COMMON NORMALS: apparent distress, negative for patient oriented x3 and negative for healthy appearing GENERAL APPEARANCE: cooperative and in distress HENMT: COMMON NORMALS: normocephalic and atraumatic HEAD & SCALP: normocephalic and atraumatic Neck/C-Spine: COMMON NORMALS: full ROM Lymph: LYMPHATIC: no lymphadenopathy noted Resp: COMMON NORMALS: negative for normal respiratory effort and negative for No use of accessory muscles Cardio: COMMON NORMALS: regular rate and regular rhythm RATE: regular rate RHYTHM: regular rhythm GI: PALPATION: Yes Firmness to palpation present (GI) and Yes Tenderness to palpation present (GI) : MALE GROIN/PERINEUM EXAM: Yes other (Poor hygiene) PENIS: normal penis MEATUS: meatus normal SCROTUM: Yes testes descended bilaterally TESTES: Yes testicular lie normal Back/Pelvis: SACRUM: erythema Extremity: OTHER: Open wound sole of left foot Neuro: COMMON NORMALS: negative for patient oriented x3 Psych: APPEARANCE: No grossly normal and Yes disheveled ATTITUDE: Yes calm A&P Assessment and plan (1) Left ureteral calculus: Approximately 8 mm left proximal ureteral stone with high-grade obstruction complicated by UTI. Status: Acute (2) Obstructive pyelonephritis: Left ureteral stone and pyelonephritis. Status: Acute (3) Diabetes 1.5, managed as type 2: Status: Acute (4) HTN (hypertension): Status: Acute (5) Anticoagulation adequate with anticoagulant therapy: Status: Acute (6) 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 mellitus: Status: Acute Consult Attestations Medical Necessity Statement: Critically ill requires surgical intervention with ureteral stent on the left Coding Level of Care Code Acute Frame Table Operator for [facility] Fwd Exam Detailed Diagnoses Left ureteral calculus N20.1 Obstructive pyelonephritis N11.1 Diabetes 1.5, managed as type 2 E13.9 HTN (hypertension) I10 Anticoagulation adequate with anticoagulant therapy Z79.01 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 mellitus E11.40
--- NOTE | 2021-10-03 12:01 | PC.PHAR ---
pts daughter yared [phone] verified pts medications-pt states yared helps him with his medications
--- NOTE | 2021-10-03 12:29 | ECG_ITS ---
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 Measurements Intervals [place] Rate: 89 P: -7 ME: 180 QRS: 78 QRSD: 135 T: 52 QT: 381 QTc: 464 Interpretive Statements SINUS RHYTHM WITH OCCASIONAL SUPRAVENTRICULAR PREMATURE COMPLEXES RIGHT BUNDLE BRANCH BLOCK [120+ ms QRS DURATION, UPRIGHT V1, 40+ ms S IN I/aVL/V4/V5/V6] Compared to ECG 10/03/2021 10:31:56 No significant changes Electronically Signed On 10-03-2021 22:06:31 HOSPITAL MANAGER by Aleks Narvaez M.D. [email or web address]
--- NOTE | 2021-10-03 12:32 | PC.NURSE ---
NURSE TO CHECK ON PATIENT. PATIENT HAD REMOVED BIPAP MASK, PULLED OUT IV LINE, AND REMOVED CARDIAC MONITORING. PATIENT APPEARED TO BE CONFUSED, STATING THAT HE DIDN'T HAVE A URINARY ISSUE, BUT HIS BROTHER DID. 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 IV LINE TO BE RESTARTED.
[2021-10-03 12:35] LABS: Add Urine Microscopic? YES; Bilirubin Urine Neg (Negative); Blood Urine 3+ (Negative); Glucose Urine UA 4+ (Normal); Ketones Urine Negative (Negative); Leukocyte Esterase Urine Negative (Negative); Nitrate Urine Negative (Negative); Protein Urine 2+ (Negative); Specific Gravity, Urine 1.015 (1.005-1.030); Urine Appearance Hazy (CLEAR); Urine Color Yellow (Yellow); Urobilinogen Urine Norm (Negative); pH Urine 5 (5-7)
[2021-10-03 12:36] LABS: Add Urine Culture? Yes; Amorphous Sediment Urine TRACE /hpf; Bacteria Urine TRACE /hpf; Squamous Epithelial Cell Urine 0-4 /hpf (0-5); WBC Urine 15-25 /hpf (0-5)
--- NOTE | 2021-10-03 12:45 | PM.HP ---
Providers/Chief Complaint Primary Care Provider: Trisha Urena MD Chief Complaint: KIDNEY STONE, SOB, CONFUSION History of Present Illness Raphael Deal is a 71 year old male who has multiple comorbid conditions such as A. fib, chronic anticoagulation, recently he was discharged after debridement of left foot abscess by Dr. Johns, he is also diabetic, presented today for chief complaint of not feeling well. Patient was evaluated 10/02 after sustaining a fall at home, at that time no fractures were identified however 6 mm obstructing stone was detected, he was discharged home, presented today with worsening of leukocytosis, he is more somnolent, oriented to himself, not able to provide any history regarding his last dose of Xarelto. I tried to call his daughters. 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 Previous ejection fraction is preserved, no diastolic heart failure, albumin is low he does have third spacing in his legs, will repeat echo in the morning, no preoperative cardiac work-up indicated considering sepsis, obstructive pyelonephritis and urgent nature of urological intervention. I spoke with Dr. Paul and Dr. Vazquez. Review of Systems General: Reports: ROS unobtainable due to medical condition (Hypoactive delirium secondary to obstructive pyelonephritis) Medications/Allergies Home Medications Medication Instructions Recorded Confirmed Last Taken Type cholecalciferol (vitamin D3) 25 3,000 unit PO DAILY 11/07/19 10/03/21 03/19/21 History mcg (1,000 unit) capsule digoxin 250 mcg (0.25 mg) tablet 250 mcg PO DAILY 11/07/19 10/03/21 03/19/21 History omega-3 fatty acids 1,000 mg 1,000 mg PO TID 11/07/19 10/03/21 03/19/21 History capsule rivaroxaban 20 mg tablet 20 mg PO DAILY 11/07/19 10/03/21 03/16/21 History fluticasone propionate [Flonase 2 spray INTRANASAL DAILY PRN 05/07/20 10/03/21 Unknown History Allergy Relief] gabapentin 800 mg PO TID 05/07/20 10/03/21 10/03/21 History ibuprofen 600 mg PO Q4H PRN 05/07/20 10/03/21 Unknown History rosuvastatin [Crestor] 20 mg PO QPM 05/07/20 10/03/21 03/19/21 History sotalol 80 mg PO BID 05/07/20 10/03/21 03/19/21 History water aerobics #1 ea 05/09/21 10/03/21 Unknown Rx metformin 1,000 mg PO BID 08/23/21 10/03/21 Unknown History Lantus Solostar U-100 Insulin 20 unit SUBCUT DAILY 30 Days #20 ml 08/30/21 10/03/21 10/03/21 09:00 Rx insulin aspart U-100 [Novolog See Rx Instructions .ROUTE 08/30/21 10/03/21 10/03/21 09:00 Rx Flexpen U-100 Insulin] .COMPLEX #15 ml 6 units hydrocodone-acetaminophen 1 tab PO Q6H PRN #20 tab 10/02/21 10/03/21 Unknown Rx Lasix See Rx Instructions .ROUTE .COMPLEX 10/03/21 10/03/21 Unknown History albuterol sulfate [ProAir HFA] 2 puff INHALATION Q4H PRN 10/03/21 10/03/21 Unknown History amlodipine 5 mg PO DAILY 10/03/21 10/03/21 Unknown History fluticasone propion-salmeterol 1 inh INHALATION BID 10/03/21 10/03/21 Unknown History [Wixela Inhub] lisinopril 40 mg PO QAM 10/03/21 10/03/21 Unknown History sodium chloride See Rx Instructions .ROUTE .COMPLEX 10/03/21 10/03/21 Unknown History tamsulosin 0.4 mg PO QPM 10/03/21 10/03/21 Unknown History Allergies Allergy/AdvReac Type Severity Reaction Status Date / Time No Known Allergies Allergy Verified 10/03/21 11:09 PFSH Acute PFSH: Medical History Anticoagulation adequate with anticoagulant therapy Xarelto Atrial fibrillation Chronic anticoagulation Diabetes 1.5, managed as type 2 Diabetic neuropathy H/O prostate cancer HTN (hypertension) Low back pain Lumbar stenosis with neurogenic claudication Obstructive pyelonephritis Obstructive sleep apnea Refuses CPAP Surgical History History of back surgery History of pilonidal cyst S/P appendectomy S/P tonsillectomy Family History Grandmother Cancer MATERNAL Diabetes Grandfather Hypertension MATERNAL Diabetes Social History Alcohol intake: never Marital status: service: Yes branch: [employer] 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 travel: No Financial difficulty paying for basics: Very Hard Vitals/I&O/Wt Last Vital Signs Temp 100.5 F H 10/03/21 10:36 Pulse 90 10/03/21 12:04 Resp 37 H 10/03/21 12:04 BP 140/75 10/03/21 12:04 Pulse Ox 95 10/03/21 12:04 Weight last 48 hrs Weight 99.79 kg Physical Exam Narrative: EXAM NARRATIVE: Patient was on BiPAP Oriented to himself Clinically looks dehydrated however signs of third spacing in his legs Left foot plantar wound looks dry no active drainage Assisted bilateral breath sounds S1, S2 variable Abdomen soft with multiple red papules on skin Oriented to himself Nonfocal neuro exam Urinary Catheter Management^: Villanueva: Cath Placed During This Visit: yes Urinary Catheter Date of Insertion: 10/03/21 Urinary Catheter Time of Insertion: 12:00 Data : 10/03/21 10:46 10/03/21 10:46 A&P Assessment and plan (1) Obstructive pyelonephritis: Status: Acute (2) Left ureteral calculus: Status: Acute (3) Kidney stone on left side: Status: Acute (4) Diabetic foot ulcer: Status: Acute (5) 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 mellitus: Status: Acute (6) Cervicalgia of ledfztdi-zbfcqeg-sylkb region: Status: Acute (7) Anticoagulation adequate with anticoagulant therapy: Status: Acute (8) HTN (hypertension): Status: Acute (9) Atrial fibrillation: Status: Acute Additional A&P Information Sepsis Leukocytosis, heart rate 90s, respiratory rate above 20 Creatinine 1.5 Patient is somnolent Septic induced encephalopathy Will need ICU after his intervention will go for urological intervention No need of preop operative work-up considering urgency EF preserved, Urine and blood culture obtained in the ER Continue Zosyn for now Obstructive pyelonephritis going for left ureteral emergency stent placement 10/03 A. fib without RVR not sure when he took his last anticoagulating agent dose Type 2 diabetes: We will keep him on sliding scale after surgery Full code Diet to be advanced after surgery as per Dr. Paul' further recommendations Tried to get in touch with his daughters, no answer Attestations Medical Necessity Statement*: More than 2 midnights anticipated Time Spent in Patient Care: Greater than 35 minutes Coding Level of Care Code Acute Contact Lens Assistant for [facility] Fwd Diagnoses Obstructive pyelonephritis N11.1 Left ureteral calculus N20.1 Kidney stone on left side N20.0 Diabetic foot ulcer E11.621; L97.509 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 mellitus E11.40 Cervicalgia of jhdstlyh-ndbzfka-avjfv region M54.2 Anticoagulation adequate with anticoagulant therapy Z79.01 HTN (hypertension) I10 Atrial fibrillation I48.91
--- NOTE | 2021-10-03 12:56 | SC_ITS ---
WS: [id number] C-arm fluoroscopy for ureteral stent placement, 10/03/2021 Clinical Data: ureteral stent placement Comparison: None. Findings: Dr. Paul placed a left ureteral stent. SC/C-arm FL for Urology Impression: Left ureteral stent.
[2021-10-03] MEDS: LORazepam 2 mg/mL INJ 1 mL 1 MG IM (13:20)
[2021-10-03 13:24] LABS: Troponin 5 2HR 55.13 ng/L (0-15); Troponin 5 2HR Delta 1.13 ABS# (0-10)
--- NOTE | 2021-10-03 13:49 | ANES.PREANE2 ---
Pre-Anesthetic Assessment Pre-Anesthetic Assessment: Height/Weight: Height 1.73 m Weight 99.79 kg Temp Pulse Resp BP Pulse Ox 100.5 F H 90 37 H 140/75 95 10/03/21 10:36 10/03/21 12:04 10/03/21 12:04 10/03/21 12:04 10/03/21 13:20 Preop Diagnosis: Abscess left foot Proposed Procedure: Operation Date: 10/03/21 14:10 Proposed Procedures p Cystoscopy(Not Applicable) - Misael Paul MD s Retrograde Pyelogram(Not Applicable) - MD patsy Beasley Ureteroscopy(Not Applicable) - MD patsy Beasley Ureteral Stent Placement(Not Applicable) - Misael Paul MD Pulmonary: Pulmonary: Sleep apnea CV/HEM: CV/HEM: Afib Comments: 05/08/20 ECHO US CONCLUSIONS Normal LV systolic function with EF of 60- 65% Diastolic function is normal 05/08/20 LEXISCAN STRESS TEST Conclusion: 1) Normal EKG response to Lexiscan infusion 2) No Lexiscan induced chest pain. PVCs were noted during stress phase 3) Normal blood pressure and heart rate response 4) Sestamibi/sestamibi perfusion scan interpreted separately. The separate report. IMPRESSIONS Myocardial perfusion imaging is normal. EKG portion of the study will be interpreted separately.ina1! Metabolic: Metabolic: DM and Morbid obesity Anesthetic Plan: ASA status: 4E Anesthesia: General Risk of > 500 ml blood loss (7ml/kg in children): No Other Pertinent Information: Patient confused, not answering questions appropriately. unable to contact family over phone for consent PFSH Anesthesia PFSH: Medical History Anticoagulation adequate with anticoagulant therapy Xarelto Atrial fibrillation Chronic anticoagulation Diabetes 1.5, managed as type 2 Diabetic neuropathy H/O prostate cancer HTN (hypertension) Low back pain Lumbar stenosis with neurogenic claudication Obstructive pyelonephritis Obstructive sleep apnea Refuses CPAP Surgical History History of back surgery History of pilonidal cyst S/P appendectomy S/P tonsillectomy Family History Grandmother Cancer MATERNAL Diabetes Grandfather Hypertension MATERNAL Diabetes Social History Alcohol intake: never Marital status: service: Yes branch: [employer] 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 travel: No Financial difficulty paying for basics: Very Hard Data Anesthesia CBC & Chem 7: 10/03/21 10:46 10/03/21 10:46 Other Labs: Laboratory Results - last 48 hr 10/03/21 10/03/21 10/03/21 10:36 10:46 10:46 WBC 21.8 H RBC 3.91 L Hgb 12.0 Hct 36.2 L MCV 92.6 MCH 30.7 MCHC 33.1 RDW 14.6 Plt Count 296 MPV 10.7 H Neut % (Auto) 84.3 Lymph % (Auto) 5.7 [place] % (Auto) 8.5 Eos % (Auto) 0.1 Baso % (Auto) 0.4 Neut # (Auto) 18.35 H Lymph # (Auto) 1.2 [place] # (Auto) 1.9 H Eos # (Auto) 0.0 Baso # (Auto) 0.1 Nucleated RBC % (auto) 0 Nucleated RBCs # 0.0 Specimen Type Sample Site ABG pH ABG pCO2 ABG pO2 ABG HCO3 ABG O2 Saturation ABG Base Excess [place] Test A-a O2 Gradient Hematocrit Hgb O2 Saturation Carboxyhemoglobin Methemoglobin Total Hemoglobin Ionized Calcium O2 Delivery Device O2 Liters/Min Receiving Dock Checker ID Sodium 134 L Potassium 4.3 Chloride 96 L Carbon Dioxide 24 Anion Gap 18.3 BUN 35 H Creatinine 1.5 H GFR Calculation Not Reportable Glucose 437 H POC Glucose 478 H Calculated Osmolality 305 H Lactic Acid Calcium 9.3 Magnesium 1.9 Troponin T Baseline Troponin T 120 Minute Delta Troponin T NT-Pro-B Natriuret Pep 3018 H Lipase 56 Urine Color Urine Appearance Urine pH Ur Specific [place] Urine Protein Urine Glucose (UA) Urine Ketones Urine Blood Urine Nitrate Urine Bilirubin Urine Urobilinogen Ur Leukocyte Esterase Urine RBC Urine WBC Ur Squamous Epith Cells Amorphous Sediment Urine Bacteria Urine Yeast Serum Ketones SARS-CoV-2 Ag (Rapid) 10/03/21 10/03/21 10/03/21 10:46 10:46 10:46 WBC RBC Hgb Hct MCV MCH MCHC RDW Plt Count MPV Neut % (Auto) Lymph % (Auto) [place] % (Auto) Eos % (Auto) Baso % (Auto) Neut # (Auto) Lymph # (Auto) [place] # (Auto) Eos # (Auto) Baso # (Auto) Nucleated RBC % (auto) Nucleated RBCs # Specimen Type Sample Site ABG pH ABG pCO2 ABG pO2 ABG HCO3 ABG O2 Saturation ABG Base Excess [place] Test A-a O2 Gradient Hematocrit Hgb O2 Saturation Carboxyhemoglobin Methemoglobin Total Hemoglobin Ionized Calcium O2 Delivery Device O2 Liters/Min Receiving Dock Checker ID Sodium Potassium Chloride Carbon Dioxide Anion Gap BUN Creatinine GFR Calculation Glucose POC Glucose Calculated Osmolality Lactic Acid 2.0 Calcium Magnesium Troponin T Baseline 54 H Troponin T 120 Minute Delta Troponin T NT-Pro-B Natriuret Pep Lipase Urine Color Urine Appearance Urine pH Ur Specific [place] Urine Protein Urine Glucose (UA) Urine Ketones Urine Blood Urine Nitrate Urine Bilirubin Urine Urobilinogen Ur Leukocyte Esterase Urine RBC Urine WBC Ur Squamous Epith Cells Amorphous Sediment Urine Bacteria Urine Yeast Serum Ketones Negative SARS-CoV-2 Ag (Rapid) 10/03/21 10/03/21 10/03/21 10:52 11:00 11:50 WBC RBC Hgb Hct MCV MCH MCHC RDW Plt Count MPV Neut % (Auto) Lymph % (Auto) [place] % (Auto) Eos % (Auto) Baso % (Auto) Neut # (Auto) Lymph # (Auto) [place] # (Auto) Eos # (Auto) Baso # (Auto) Nucleated RBC % (auto) Nucleated RBCs # Specimen Type Arterial Sample Site Brachial, right ABG pH 7.32 L ABG pCO2 54.9 H ABG pO2 283.0 H ABG HCO3 28.0 H ABG O2 Saturation > 100.0 ABG Base Excess 0.9 [place] Test Pos A-a O2 Gradient Not Reportable Hematocrit 36.5 L Hgb O2 Saturation > 100.0 H Carboxyhemoglobin 1.2 Methemoglobin < 0.0 L Total Hemoglobin 11.9 L Ionized Calcium 1.2 O2 Delivery Device Nrb O2 Liters/Min 15.0 Receiving Dock Checker ID Hensa Sodium 139.0 Potassium 4.3 Chloride Carbon Dioxide Anion Gap BUN Creatinine GFR Calculation Glucose 467.0 H POC Glucose Calculated Osmolality Lactic Acid Calcium Magnesium Troponin T Baseline Troponin T 120 Minute Delta Troponin T NT-Pro-B Natriuret Pep Lipase Urine Color Yellow Urine Appearance Hazy A Urine pH 5 Ur Specific [place] 1.015 Urine Protein 2+ H Urine Glucose (UA) 4+ H Urine Ketones Negative Urine Blood 3+ H Urine Nitrate Negative Urine Bilirubin Neg Urine Urobilinogen Norm Ur Leukocyte Esterase Negative Urine RBC None Urine WBC 15-25 H Ur Squamous Epith Cells 0-4 H Amorphous Sediment Trace Urine Bacteria Trace Urine Yeast 3+ H Serum Ketones SARS-CoV-2 Ag (Rapid) Negative 10/03/21 12:47 WBC RBC Hgb Hct MCV MCH MCHC RDW Plt Count MPV Neut % (Auto) Lymph % (Auto) [place] % (Auto) Eos % (Auto) Baso % (Auto) Neut # (Auto) Lymph # (Auto) [place] # (Auto) Eos # (Auto) Baso # (Auto) Nucleated RBC % (auto) Nucleated RBCs # Specimen Type Sample Site ABG pH ABG pCO2 ABG pO2 ABG HCO3 ABG O2 Saturation ABG Base Excess [place] Test A-a O2 Gradient Hematocrit Hgb O2 Saturation Carboxyhemoglobin Methemoglobin Total Hemoglobin Ionized Calcium O2 Delivery Device O2 Liters/Min Receiving Dock Checker ID Sodium Potassium Chloride Carbon Dioxide Anion Gap BUN Creatinine GFR Calculation Glucose POC Glucose Calculated Osmolality Lactic Acid Calcium Magnesium Troponin T Baseline Troponin T 120 Minute 55.13 H Delta Troponin T 1.13 NT-Pro-B Natriuret Pep Lipase Urine Color Urine Appearance Urine pH Ur Specific [place] Urine Protein Urine Glucose (UA) Urine Ketones Urine Blood Urine Nitrate Urine Bilirubin Urine Urobilinogen Ur Leukocyte Esterase Urine RBC Urine WBC Ur Squamous Epith Cells Amorphous Sediment Urine Bacteria Urine Yeast Serum Ketones SARS-CoV-2 Ag (Rapid) Cardiac Studies: Echocardiogram Ultrasound 05/08/20 Sestamibi Stress Test (Cardiology) 05/07/20
[2021-10-03 13:56] LABS: Glucose Point of Care 426 mg/dL (70-110)
[2021-10-03] MEDS: insulin regular-human 100 units/1 mL 10 UNIT IVP (13:59)
[2021-10-03] MEDS: piperacillin-tazobactam 3.375 GM in sodium chloride 0.9% (plus) 50 ML IV ×2 (14:02→21:36)
--- NOTE | 2021-10-03 14:37 | P.OP_ITS ---
Operative Report Date of procedure: October 03, 2021 Pre-op Diagnosis: Left obstructive pyelonephritis Post-op diagnosis: same Procedure Done: 1. Cystoscopy with left ureteral stent placement (7 Mozambican by 28 cm double-pigtail no string Implants: Left ureteral stent, Villanueva catheter Pathology: none sent Surgeon: Humberto Anesthesia: MAC Estimated blood loss: None Urine output: Not measured Complications: None, he remained hemodynamically stable throughout the procedure. Findings: Stone was easily visualized on fluoroscopy. The wire bypassed the stone without difficulty and stent as well was passed bypassing the stone and curling in the collecting system. A lot of purulent drainage immediately efflux from the left ureteral orifice with passage of the wire and more so with the stent. Condition: stable Disposition: ICU Brief History: Raphael is a 71-year-old white male who I evaluated for the first time today in the emergency department for what appeared to be obstructive pyelonephritis. He was seen yesterday in the emergency department with complaints of generalized pain and a CT scan of the abdomen looking for source revealed a 6 mm stone plus in the left proximal ureter. The urine did not look infected he did not look septic and it was felt that he can be managed on outpatient basis. Today he presented back to the ER with an elevated white count above 20,000, septic appearance, shortness of breath, and with increased confusion. Repeat CT scan without contrast showed the stone was in the same position and was resulting in high-grade obstruction given that there was a column of contrast from the kidney down to the stone from the CT scan yesterday and there was still a large amount of contrast within the parenchyma of the left kidney. Urine looked infected. It was recommended to go to the operating room emergently and he was brought to the operating room after evaluation by the hospitalist service for appropriateness to proceed with surgery. Procedure: After emergent evaluation examination and obtaining of informed consent he was taken to the operating suite on 10/03/2021 where general anesthesia was administered without difficulty after appropriate timeout was performed, SCDs confirmed to be functioning, preoperative antibiotics administered, beta-vineet protocol confirmed. Prepped and draped in the usual sterile fashion in dorsolithotomy position paying careful attention to avoiding pressure points. 21 Mozambican cystoscope with 30 degree lens was introduced into the urethral meatus and advanced into the bladder to videoscopy. Enlarged prostate, moderate trabeculation of bladder, normally identified left ureteral orifice. Fluoroscopy easily identified the stone that was seen on the CT scan. The flexible tip guidewire was then advanced up the left ureter easily bypassing the stone and curling in the area the upper pole calyx. Again there was some contrast remaining in the proximal ureter and collecting system from the CT scan performed yesterday. A 7 Mozambican by 28 cm double-pigtail stent was then advanced over the guidewire through the cystoscope into appropriate position as confirmed via fluoroscopy and cystoscopy. The stent was confirmed to be draining purulent material. The bladder was drained with a Villanueva catheter and the procedure was completed. He tolerated the procedure well without complications and was transferred directly from the operating room to ICU for further medical care. I communicated with the hospitalist regarding the findings and that the patient was being transported to ICU.
[2021-10-03] MEDS: sodium chloride 0.9% 1,000 ML 75 ML IV (15:30)
--- NOTE | 2021-10-03 16:22 | ANE.PACU2 ---
Inpatient post-anesthesia follow up: Airway intact: Yes Vital signs: Temperature 100.5 F Pulse Rate 90 Respiratory Rate 37 Blood Pressure 140/75 Pulse Oximetry 95 Oxygen Delivery Me thod Non-Rebreather Oxygen Flow Rate 15 Fraction of Inspir ed Oxygen 30 Hydration adequate: Yes Nausea and vomiting: No Pain level: 3 Mental status: Baseline
--- NOTE | 2021-10-03 16:29 | ECG_ITS ---
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 Measurements Intervals [place] Rate: 94 P: -17 WA: 179 QRS: 61 QRSD: 137 T: 20 QT: 369 QTc: 462 Interpretive Statements SINUS RHYTHM RIGHT BUNDLE BRANCH BLOCK [120+ ms QRS DURATION, UPRIGHT V1, 40+ ms S IN I/aVL/V4/V5/V6] Compared to ECG 10/03/2021 12:37:03 No significant changes Electronically Signed On 10-03-2021 22:04:45 INSURANCE AGENCY MANAGER by Aleks Narvaez M.D. [id number]
[2021-10-03 16:52] LABS: ABG PCO2 45.4 mmHg (35-45); ABG PH Result 7.39 (7.35-7.45); Arterial Blood Gas Hematocrit 36.7 % (42-52); Base Excess ABG 2.1 mmol/L (-2.0-2.0); Blood Gas Operator Identificat GD; Blood Gas Sample Site Brachial, right; Blood Gas Sample Type Arterial; HCO3 ABG 27.5 mmol/L (22-26); Oxygen Device NC; PO2 ABG 68.8 mmHg (80.0-100.0)
[2021-10-03 18:17] LABS: Troponin 5 6HR 51.51 ng/L (0-15)
[2021-10-03 18:20] LABS: Troponin 5 6HR Delta -2.49 ng/L (0-12)
[2021-10-03 18:20] LABS: Glucose Point of Care 362 mg/dL (70-110)
[2021-10-03] MEDS: insulin lispro 100 unit/1 mL SUBCUT (18:33)
[2021-10-03] MEDS: acetaminophen 1,000 MG/100 ML PIGGYBACK 400 MG IV (19:58)
[2021-10-03 22:09] LABS: Glucose Point of Care 351 mg/dL (70-110)
[2021-10-04] VITALS (45 sets, daily range): BP systolic 115–181; BP diastolic 70–114; PULSE 74–105; RESP 0–42; TEMP 36.7–37.7; O2SAT 91–100
[2021-10-04] MEDS: piperacillin-tazobactam 3.375 GM in sodium chloride 0.9% (plus) 50 ML IV ×3 (04:07→22:35)
[2021-10-04 04:19] LABS: Basophils # 0.1 10^3/uL (0.0-0.1); Basophils % 0.5 %; Eosinophils # 0.1 10^3/uL (0.0-0.8); Eosinophils % 0.5 %; Hematocrit 34.2 % (42.0-52.0); Lymphocytes # 1.2 10^3/uL (0.8-4.8); Lymphocytes % 6.6 %; Mean Corpuscular HGB Conc 32.2 g/dL (30.0-36.0); Mean Corpuscular Hemoglobin 30.5 pg (28.0-34.0); Mean Corpuscular Volume 94.7 fl (80-94); Mean Platelet Volume 11.3 fL (7.4-10.4); Monocytes % 10.9 %; Neutrophils # 14.78 10^3/uL (1.8-7.7); Neutrophils % 80.7 %; Nucleated Red Blood Cells % 0 %; Platelet Count 277 10^3/cmm (130-400); Red Blood Count 3.61 10^6/uL (4.1-5.3); Red Cell Distribution Width 14.6 % (12.1-15.1); White Blood Count 18.3 10^3/uL (4.0-10.0)
[2021-10-04 04:33] LABS: Anion Gap 19.1 (5-19); Blood Urea Nitrogen 53 mg/dL (8-23); Calcium 8.9 mg/dL (8.5-10.5); Carbon Dioxide 22 mmol/L (22-29); Chloride 102 mmol/L (98-107); Glucose 393 mg/dL (65-115); Magnesium 2.2 mg/dL (1.7-2.3); Osmolality Calculated 319 mOsm/kg (285-295); Potassium 4.1 mmol/L (3.5-5.1); Sodium 139 mmol/L (136-145)
[2021-10-04 04:47] LABS: C Reactive Protein 468.8 mg/L (0.0-4.9)
[2021-10-04 07:02] LABS: Glucose Point of Care 460 mg/dL (70-110)
[2021-10-04] MEDS: insulin lispro 100 unit/1 mL SUBCUT ×3 (07:05→17:14)
[2021-10-04] MEDS: sodium chloride 0.9% 1,000 ML 75 ML IV ×2 (09:03→22:34)
[2021-10-04] MEDS: insulin glargine 100 units/1 mL 20 UNIT SUBCUT (09:04)
--- NOTE | 2021-10-04 09:32 | PC.NURSE ---
[address] Juarez. Reported elevated blood sugar. Reviewed labs, medications, vital signs, mental status, UOP, and plan of care. Orders received.
--- NOTE | 2021-10-04 10:50 | PM.PN ---
Subjective Subjective: Interval history: Patient is more awake and alert able to follow my commands, still not oriented to time place or person Leukocytosis trending down, low-grade fever overnight Creatinine worsened clinically looks dehydrated Continue normal saline for now Blood pressure stable Currently on 3 L nasal cannula High anion gap hyperglycemia Lantus today, he was able to take a sip of water without any aspiration or choking PCO2 improved yesterday after surgery He did not require BiPAP overnight Vitals/I&O/Wt Last Vital Signs Temp 99.9 F H 10/04/21 07:00 Pulse 93 10/04/21 09:00 Resp 41 H 10/04/21 09:00 BP 156/91 10/04/21 09:00 Pulse Ox 94 10/04/21 09:00 10/03/21 10/04/21 10/04/21 22:59 06:59 14:59 Intake Total 150 / 200 1530.00 / 1730.00 510 / 510 Output Total 650 / 650 1005 / 1655 700 / 700 Balance -500 / -450 525.00 / 75.00 -190 / -190 Weight last 48 hrs Weight 102.058 kg Weight 99.79 kg Physical Exam Narrative: EXAM NARRATIVE: Patient is saturating well on 2 L nasal cannula Clinically looks dehydrated Abdomen soft Bilateral breath sound with mild rhonchi at the bases Awake and alert following commands nonfocal neuro exam however oriented to himself only S1, S2 variable No acute respiratory distress No signs of edema Villanueva catheter draining concentrated urine Urinary Catheter Management^: Villanueva: Cath Placed During This Visit: yes, but has since been removed by the nurse Urinary Catheter Date of Insertion: 10/03/21 Urinary Catheter Time of Insertion: 12:00 Date Urinary Catheter Removed: 10/03/21 Time Urinary Catheter Discontinued: 14:15 Villanueva Latex: Cath Placed During This Visit: yes Reason for Continuing Indwelling Catheter: Acute Urinary Retention or Obstruction Urinary Catheter Date of Insertion: 10/03/21 Urinary Catheter Time of Insertion: 14:44 Data : 10/04/21 03:18 10/04/21 03:18 Micro: Microbiology 10/03/21 11:50 Urine Culture - Preliminary Urine,Clean Catch Yeast 10/03/21 10:46 Blood Culture - Preliminary Blood SPECIMEN COLLECTED 10/03/21 Unknown Blood Culture - Preliminary Blood SPECIMEN COLLECTED A&P Assessment and plan (1) Obstructive pyelonephritis: Status: Acute (2) Left ureteral calculus: Status: Acute (3) Kidney stone on left side: Status: Acute (4) Diabetic foot ulcer: Status: Acute (5) 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 mellitus: Status: Acute (6) Lumbar stenosis: Status: Acute Qualifiers: Neurogenic claudication status: unspecified Qualified Code(s): M48.061 - Spinal stenosis, lumbar region without neurogenic claudication (7) Anticoagulation adequate with anticoagulant therapy: Status: Acute (8) HTN (hypertension): Status: Acute (9) Atrial fibrillation: Status: Acute (10) RAI (acute kidney injury): Status: Acute Additional A&P Information Sepsis related to obstructive pyelonephritis status post intervention on 10/03 Urine culture positive for yeast Concentrated urine Creatinine worsening Clinically dehydrated Hyperglycemia We will give him 500 mL bolus and continue normal saline Added Lantus for hyperglycemia We will do speech evaluation Hypercapnia: Resolved Diabetic foot ulcer no acute worsening A. fib without RVR: Start anticoagulating agent today hemoglobin stable Acute hypoxia: To hypoventilation, post surgery he has history of sleep apnea uses oxygen at night Full code Would use dysphagia diet and advance once he is more awake and alert RAI related to obstructive pyonephritis: I do believe secondary to dehydration there is worsening of creatinine Monitor urine output patient is also on nephrotoxic agents such as antibiotics, plan to change to cefepime after final culture results Attestations Medical Necessity Statement*: Can be transferred out of ICU once mentally more awake and alert Time Spent in Patient Care: 16 - 35 minutes Coding Level of Care Code Acute Insurance Agent for [facility] Fwd Diagnoses Obstructive pyelonephritis N11.1 Left ureteral calculus N20.1 Kidney stone on left side N20.0 Diabetic foot ulcer E11.621; L97.509 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 mellitus E11.40 Lumbar stenosis M48.061 Neurogenic claudication status: unspecified Anticoagulation adequate with anticoagulant therapy Z79.01 HTN (hypertension) I10 Atrial fibrillation I48.91 RAI (acute kidney injury) N17.9
[2021-10-04 11:12] LABS: Glucose Point of Care 410 mg/dL (70-110)
[2021-10-04] MEDS: fluconazole premix 200 MG/100 ML PREMIX 100 MG IV (11:22)
[2021-10-04] MEDS: sodium chloride 0.9% 500 ML 999 ML IV (11:22)
[2021-10-04] MEDS: rivaroxaban 10 mg Tablet 20 MG PO (11:22)
[2021-10-04 17:01] LABS: Glucose Point of Care 332 mg/dL (70-110)
[2021-10-04 20:42] LABS: Glucose Point of Care 342 mg/dL (70-110)
[2021-10-04] MEDS: insulin lispro 100 unit/1 mL 6 UNIT SUBCUT (22:36)
[2021-10-05] VITALS (57 sets, daily range): BP systolic 86–188; BP diastolic 52–97; PULSE 82–163; RESP 0–44; TEMP 36.7–37.7; O2SAT 94–100
[2021-10-05 00:28] LABS: Glucose Point of Care 329 mg/dL (70-110)
[2021-10-05] MEDS: piperacillin-tazobactam 3.375 GM in sodium chloride 0.9% (plus) 50 ML IV (04:12)
[2021-10-05 06:05] LABS: Basophils # 0.1 10^3/uL (0.0-0.1); Basophils % 0.5 %; Eosinophils # 0.3 10^3/uL (0.0-0.8); Eosinophils % 1.6 %; Hematocrit 33.2 % (42.0-52.0); Hemoglobin 10.6 g/dL (11.7-16.6); Lymphocytes # 1.5 10^3/uL (0.8-4.8); Lymphocytes % 8.6 %; Mean Corpuscular HGB Conc 31.9 g/dL (30.0-36.0); Mean Corpuscular Hemoglobin 30.2 pg (28.0-34.0); Mean Corpuscular Volume 94.6 fl (80-94); Mean Platelet Volume 11.3 fL (7.4-10.4); Monocytes # 1.5 10^3/uL (0.2-0.9); Monocytes % 8.5 %; Neutrophils # 14.11 10^3/uL (1.8-7.7); Nucleated Red Blood Cells % 0 %; Platelet Count 335 10^3/cmm (130-400); Red Blood Count 3.51 10^6/uL (4.1-5.3); Red Cell Distribution Width 14.6 % (12.1-15.1); White Blood Count 17.6 10^3/uL (4.0-10.0)
[2021-10-05 06:40] LABS: Glucose Point of Care 385 mg/dL (70-110)
[2021-10-05 08:09] LABS: Anion Gap 22.4 (5-19); Blood Urea Nitrogen 54 mg/dL (8-23); Calcium 8.9 mg/dL (8.5-10.5); Carbon Dioxide 19 mmol/L (22-29); Chloride 106 mmol/L (98-107); Glucose 360 mg/dL (65-115); Lactate Dehydrogenase 333 U/L (135-225); Osmolality Calculated 325 mOsm/kg (285-295); Potassium 4.4 mmol/L (3.5-5.1); Sodium 143 mmol/L (136-145)
[2021-10-05 08:30] LABS: C Reactive Protein 420.2 mg/L (0.0-4.9)
[2021-10-05 09:41] LABS: ABG PCO2 47.9 mmHg (35-45); ABG PH Result 7.33 (7.35-7.45); Arterial Blood Gas Hematocrit 31.9 % (42-52); Base Excess ABG -1.2 mmol/L (-2.0-2.0); Blood Gas Allen Test Pos; Blood Gas Operator Identificat MONRO; Blood Gas Sample Site Radial, left; Blood Gas Sample Type Arterial; HCO3 ABG 25.1 mmol/L (22-26); Oxygen Device NC
[2021-10-05] MEDS: cefepime 2,000 MG in sodium chloride 0.9% (plus) 50 ML 100 MG IV (09:43)
[2021-10-05] MEDS: insulin lispro 100 unit/1 mL SUBCUT (09:43)
[2021-10-05] MEDS: insulin glargine 100 units/1 mL 20 UNIT SUBCUT ×2 (10:33→19:19)
--- NOTE | 2021-10-05 10:52 | PM.PN ---
Subjective Subjective: Interval history: Patient was agitated overnight De-escalate antibiotics to cefepime Creatinine improved with fluid boluses Leukocytosis trending down, afebrile Patient is very drowsy, did not receive any opioids or Ativan overnight,, requested ABG which showed mild hypercapnia and acidosis Positive ketone level, rule out DKA, started on BiPAP I will give him IV thiamine as well Vitals/I&O/Wt Last Vital Signs Temp 98.6 F 10/05/21 07:22 Pulse 110 H 10/05/21 10:39 Resp 22 H 10/05/21 08:14 BP 188/91 10/05/21 07:22 Pulse Ox 96 10/05/21 10:39 10/04/21 10/05/21 10/05/21 22:59 06:59 14:59 Intake Total 1050 / 2360 470 / 2830 Output Total 200 / 1600 1600 / 3200 700 / 700 Balance 850 / 760 -1130 / -370 -700 / -700 Weight last 48 hrs Weight 98.928 kg Weight 102.058 kg Physical Exam Narrative: EXAM NARRATIVE: Patient is oriented to himself Currently on 3 L nasal cannula He is tachypneic He does open his eyes to verbal command, moving his upper and lower extremities No signs of stroke Abdomen is soft Pupils are equal and reactive to light Patient looks dehydrated Villanueva catheter draining concentrated urine with blood-tinged color No signs of edema Urinary Catheter Management^: Villanueva: Cath Placed During This Visit: yes, but has since been removed by the nurse Urinary Catheter Date of Insertion: 10/03/21 Urinary Catheter Time of Insertion: 12:00 Date Urinary Catheter Removed: 10/03/21 Time Urinary Catheter Discontinued: 14:15 Villanueva Latex: Cath Placed During This Visit: yes Reason for Continuing Indwelling Catheter: Acute Urinary Retention or Obstruction Urinary Catheter Date of Insertion: 10/03/21 Urinary Catheter Time of Insertion: 14:44 Data : 10/05/21 04:20 10/05/21 04:20 Micro: Microbiology 10/03/21 10:46 Blood Culture - Preliminary Blood NEGATIVE TO DATE 10/03/21 Unknown Blood Culture - Preliminary Blood NEGATIVE TO DATE 10/03/21 11:50 Urine Culture - Preliminary Urine,Clean Catch Yeast A&P Assessment and plan (1) RAI (acute kidney injury): Status: Acute (2) Obstructive pyelonephritis: Status: Acute (3) Left ureteral calculus: Status: Acute (4) Kidney stone on left side: Status: Acute (5) Diabetic foot ulcer: Status: Acute (6) 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 mellitus: Status: Acute (7) Anticoagulation adequate with anticoagulant therapy: Status: Acute (8) HTN (hypertension): Status: Acute (9) Atrial fibrillation: Status: Acute (10) Delirium: Status: Acute Additional A&P Information Obstructive pyelonephritis Status post intervention on day of admission No perioperative complications He was on BiPAP before going to the surgery for hypercapnia Is been very drowsy since his surgery CT head unremarkable No active neurological focal signs Rule out DKA requested ketone level, ABG does show acidosis, mild hypercapnia, will start him on BiPAP, give IV thiamine for now Uremia has not significant improved Antibiotics deescalated as he has been afebrile, leukocytosis trending down 1 dose of fluconazole was given IV 200 mg yesterday A. fib RVR start AV christie blocking agent, blood-tinged urine, hemodynamically stable Start anticoagulating agent once hematuria improves Still noting clots in his urine RAI related to obstructive pyelonephritis Creatinine is improving, received multiple boluses of fluids yesterday BMP is high however clinically he is extremely dry left Diabetic foot ulcer no acute worsening Acute delirium Due to hypoglycemia, uremia, hypercapnia, multifactorial Does not have active neurological focal deficits Able to open eyes on verbal command moving all of his extremities pupils are equal and reactive to light Full code Advance diet once he is more awake and alert Holding Xarelto because of hematuria SCDs for now Attestations Medical Necessity Statement*: Continue medical management Time Spent in Patient Care: 16 - 35 minutes Coding Level of Care Code Acute Enterprise Analyst for [facility] Fwd Diagnoses RAI (acute kidney injury) N17.9 Obstructive pyelonephritis N11.1 Left ureteral calculus N20.1 Kidney stone on left side N20.0 Diabetic foot ulcer E11.621; L97.509 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 mellitus E11.40 Anticoagulation adequate with anticoagulant therapy Z79.01 HTN (hypertension) I10 Atrial fibrillation I48.91 Delirium R41.0
[2021-10-05 11:01] LABS: Ketone (Acetest) Serum Positive (Negative)
--- NOTE | 2021-10-05 11:01 | CTR_ITS ---
PROCEDURE INFORMATION: Exam: CT Head Without Contrast Exam date and time: 10/05/2021 11:01 AM Age: 71 years old Clinical indication: Altered mental status/memory loss; Confusion or disorientation; Additional info: Drowsy, AMS TECHNIQUE: Imaging protocol: Computed tomography of the head without contrast. Radiation optimization: All CT scans at this facility use at least one of these dose optimization techniques: automated exposure control; mA and/or kV adjustment per patient size (includes targeted exams where dose is matched to clinical indication); or iterative reconstruction. COMPARISON: CT head wo con* [id number] 10/03/2021 11:20 AM RADIATION DOSE METRICS: Total DLP (mGy-cm): 1183.2 FINDINGS: Brain: No hemorrhage. No edema or mass effect. Cerebral ventricles: No ventriculomegaly. Paranasal sinuses: Visualized sinuses are unremarkable. No fluid levels. Mastoid air cells: Unremarkable. Bones/joints: Unremarkable. No acute fracture. Soft tissues: Unremarkable. CT/CT head wo con* [id number] IMPRESSION: No interval change or acute finding.
[2021-10-05 11:29] LABS: Glucose Point of Care 375 mg/dL (70-110)
[2021-10-05 12:01] LABS: Digoxin 0.8 ng/mL (0.6-1.2)
[2021-10-05] MEDS: fluconazole premix 200 MG/100 ML PREMIX 100 MG IV (12:34)
[2021-10-05] MEDS: insulin regular-human 250 UNIT in sodium chloride 0.9% 250 ML 6.36 UNIT IV (14:06)
[2021-10-05] MEDS: sodium chloride 0.9% 1,000 ML 125 ML IV (14:07)
[2021-10-05 15:12] LABS: Blood Gas Allen Test Pos; Blood Gas Operator Identificat BD; Blood Gas Sample Site VEIN; Blood Gas Sample Type Venous; HCO3 VBG 25.2 mmol/L (24-28); Oxygen Device BIPAP; PCO2 VBG 42.4 mmHg (41-51); PO2 VBG 78.9 mmHg (25-40); Venous Blood Gas Hematocrit 29.8 % (42-52); pH VBG 7.38 (7.32-7.42)
[2021-10-05 15:57] LABS: Blood Urea Nitrogen 60 mg/dL (8-23); Calcium 8.4 mg/dL (8.5-10.5); Carbon Dioxide 21 mmol/L (22-29); Chloride 112 mmol/L (98-107); Glucose 324 mg/dL (65-115); Osmolality Calculated 329 mOsm/kg (285-295); Sodium 145 mmol/L (136-145)
--- NOTE | 2021-10-05 18:16 | CTR_ITS ---
PROCEDURE INFORMATION: Exam: CT Angiography Head With Contrast, Arteriography Exam date and time: 10/05/2021 6:16 PM Age: 71 years old Clinical indication: Cognitive deficit; Altered mental status; Prior surgery; Surgery type: Tonsillectomy; Patient HX: Severe confusion and lethargy. ; Additional info: Confused TECHNIQUE: Imaging protocol: Computed tomography angiography of the head with contrast. Exam focused on the arteries. 3D rendering (Not supervised by radiologist): MIP and/or 3D reconstructed images were created by the technologist. Radiation optimization: All CT scans at this facility use at least one of these dose optimization techniques: automated exposure control; mA and/or kV adjustment per patient size (includes targeted exams where dose is matched to clinical indication); or iterative reconstruction. Contrast material: VISI 320; Contrast volume: 95 ml; Contrast route: INTRAVENOUS (IV); COMPARISON: 1. CT head con* [id number] 2021-10-05 13:[address] head con* [id number] 2021-10-03 11:20 RADIATION DOSE METRICS: Total DLP (mGy-cm): 2344.81 FINDINGS: ANTERIOR CIRCULATION: Right internal carotid artery: Mild cavernous and supraclinoid right internal carotid artery atherosclerotic plaque and stenosis. Right middle cerebral artery: Unremarkable. No occlusion or significant stenosis. No aneurysm. Right anterior cerebral artery: Unremarkable. No occlusion or significant stenosis. No aneurysm. Left internal carotid artery: Mild cavernous and supraclinoid left internal carotid artery atherosclerotic plaque and stenosis. Left middle cerebral artery: Unremarkable. No occlusion or significant stenosis. No aneurysm. Left anterior cerebral artery: Unremarkable. No occlusion or significant stenosis. No aneurysm. POSTERIOR CIRCULATION: Right vertebral artery: Minimal right vertebral artery V4 segment stenosis. Left vertebral artery: Mild left vertebral artery V4 segment stenosis. Basilar artery: Unremarkable. No occlusion or significant stenosis. No aneurysm. Right posterior cerebral artery: Unremarkable. No occlusion or significant stenosis. No aneurysm. Left posterior cerebral artery: Unremarkable. No occlusion or significant stenosis. No aneurysm. Brain: Moderate cerebral volume loss and chronic white matter disease. Cerebral ventricles: No ventriculomegaly. Bones/joints: Unremarkable. No acute fracture. Soft tissues: Unremarkable. PROCEDURE INFORMATION: Exam: CT Angiography Neck With Contrast Exam date and time: 10/05/2021 6:16 PM Age: 71 years old Clinical indication: Cognitive deficit; Altered mental status; Prior surgery; Surgery type: Tonsillectomy; Patient HX: Severe confusion and lethargy. ; Additional info: Confused TECHNIQUE: Imaging protocol: Computed tomography angiography of the neck with contrast. 3D rendering (Not supervised by radiologist): MIP and/or 3D reconstructed images were created by the technologist. Radiation optimization: All CT scans at this facility use at least one of these dose optimization techniques: automated exposure control; mA and/or kV adjustment per patient size (includes targeted exams where dose is matched to clinical indication); or iterative reconstruction. Contrast material: VISI 320; Contrast volume: 95 ml; Contrast route: INTRAVENOUS (IV); COMPARISON: 1. CT head wo con* [id number] 2021-10-05 13:[address] head wo con* [id number] 2021-10-03 11:20 RADIATION DOSE METRICS: Total DLP (mGy-cm): 2344.81 FINDINGS: Limitations: Motion artifact does moderately limit the sensitivity of this examination. Right common carotid artery: Mild atherosclerotic plaque in the predominately distal right common carotid artery and the bifurcation. Right internal carotid artery: No stenosis of the extracranial segment. No dissection or occlusion. Right external carotid artery: No occlusion or stenosis of the origin. Left common carotid artery: No stenosis. No dissection or occlusion. Left internal carotid artery: No stenosis of the extracranial segment. No dissection or occlusion. Left external carotid artery: No occlusion or stenosis of the origin. Right vertebral artery: No stenosis. No dissection or occlusion. Left vertebral artery: No stenosis. No dissection or occlusion. Aorta: Patent left vertebral artery arising from the aortic arch. Soft tissues: Normal. No significant soft tissue swelling. Bones/joints: Bulky bridging ventral cervical osteophytes. Multilevel moderate spinal stenosis. CT/CT angio headneck* [id number] IMPRESSION: No large vessel stenosis or occlusion. IMPRESSION: No significant internal carotid or vertebral artery stenosis. REFERENCES: NASCET CRITERIA. The degree of internal carotid artery stenosis is based on NASCET criteria. Normal is no stenosis. Mild is less than 50% stenosis. Moderate is 50-69% stenosis. Severe is 70% to 99% stenosis. Total occlusion is no detectable patent lumen.
[2021-10-05 18:58] LABS: Glucose Point of Care 269 mg/dL (70-110)
[2021-10-05 18:58] LABS: Glucose Point of Care 361 mg/dL (70-110)
[2021-10-05 18:58] LABS: Glucose Point of Care 193 mg/dL (70-110)
[2021-10-05 18:58] LABS: Glucose Point of Care 262 mg/dL (70-110)
[2021-10-05 18:58] LABS: Glucose Point of Care 294 mg/dL (70-110)
[2021-10-05] MEDS: tamsulosin 0.4 mg Capsule PO (19:00)
[2021-10-05] MEDS: sotalol 80 mg Tablet PO (19:00)
--- NOTE | 2021-10-05 19:00 | PC.NURSE ---
Shift Note: Pt to ICU early afternoon. Pt has been lethargic and somnolent throughout the shift. He did wake up at end of shift and ask for a drink of water. He had difficulty understanding how to work a straw. Insulin gtt and Increase in IV fluids started once he reached ICU. Anion gap closed, insulin gtt now off. Lantus admin. He remains on BiPAp at 35 % FIO2. Afebrile and VSS. His urine is pink with sediment. 1240ml output, most of that after Lasix admin around 1700. Frequent safety and comfort rounds continue. Orders and/or nursing care completed as indicated. Patient monitored for response to intervention and treatment(s). Education provided includes insulin gtt, AMS and sepsis, Patient's sales development representative,his daughter, verbalized understanding of pt's progress and continuing plan of care. . Will continue to monitor.
[2021-10-05 19:01] LABS: Blood Urea Nitrogen 58 mg/dL (8-23); Calcium 8.5 mg/dL (8.5-10.5); Carbon Dioxide 21 mmol/L (22-29); Chloride 115 mmol/L (98-107); Glucose 197 mg/dL (65-115); Osmolality Calculated 330 mOsm/kg (285-295); Sodium 149 mmol/L (136-145)
[2021-10-05 19:10] LABS: Anion Gap 16.9 (5-19); Potassium 3.9 mmol/L (3.5-5.1)
[2021-10-05 19:37] LABS: Glucose Point of Care 175 mg/dL (70-110)
[2021-10-05] MEDS: digoxin 250 mcg Tablet PO (21:46)
[2021-10-05 21:58] LABS: Glucose Point of Care 279 mg/dL (70-110)
[2021-10-05] MEDS: pantoprazole 40 mg SDV IVP (22:58)
[2021-10-05] MEDS: iodixanol 320 mg/mL 100mL Btl IV (23:41)
[2021-10-06] VITALS (54 sets, daily range): BP systolic 73–160; BP diastolic 49–133; PULSE 83–168; RESP 9–46; TEMP 36.2–37.4; O2SAT 95–100
[2021-10-06] MEDS: sodium chloride 0.9% 1,000 ML 75 ML IV (01:35)
[2021-10-06 02:46] LABS: Basophils # 0.1 10^3/uL (0.0-0.1); Basophils % 0.3 %; Eosinophils # 0.3 10^3/uL (0.0-0.8); Eosinophils % 1.9 %; Hematocrit 29.2 % (42.0-52.0); Hemoglobin 9.3 g/dL (11.7-16.6); Lymphocytes # 1.8 10^3/uL (0.8-4.8); Lymphocytes % 10.5 %; Mean Corpuscular HGB Conc 31.8 g/dL (30.0-36.0); Mean Corpuscular Hemoglobin 30.1 pg (28.0-34.0); Mean Corpuscular Volume 94.5 fl (80-94); Mean Platelet Volume 10.8 fL (7.4-10.4); Monocytes # 1.5 10^3/uL (0.2-0.9); Monocytes % 8.8 %; Neutrophils % 77.6 %; Nucleated Red Blood Cells % 0 %; Platelet Count 343 10^3/cmm (130-400); Red Blood Count 3.09 10^6/uL (4.1-5.3); Red Cell Distribution Width 14.8 % (12.1-15.1); White Blood Count 16.9 10^3/uL (4.0-10.0)
[2021-10-06 03:04] LABS: Anion Gap 18.2 (5-19); Blood Urea Nitrogen 62 mg/dL (8-23); Calcium 8.2 mg/dL (8.5-10.5); Carbon Dioxide 20 mmol/L (22-29); Chloride 116 mmol/L (98-107); Glucose 334 mg/dL (65-115); Osmolality Calculated 341 mOsm/kg (285-295); Potassium 4.2 mmol/L (3.5-5.1); Sodium 150 mmol/L (136-145)
[2021-10-06] MEDS: metoprolol tartrate 1 mg/1 mL SDV 5 mL 5 MG IVP (03:12)
[2021-10-06 03:39] LABS: ABG PCO2 35.5 mmHg (35-45); Arterial Blood Gas Hematocrit 33.4 % (42-52); Base Excess ABG -2.6 mmol/L (-2.0-2.0); Blood Gas Allen Test Pos; Blood Gas Sample Site Radial, left; Blood Gas Sample Type Arterial; HCO3 ABG 21.8 mmol/L (22-26); Oxygen Device NC
[2021-10-06 06:04] LABS: Glucose Point of Care 334 mg/dL (70-110)
--- NOTE | 2021-10-06 06:08 | PC.NURSE ---
Shift Note Frequent safety and comfort rounds continue. Orders and/or nursing care completed as indicated. Patient monitored for response to intervention and treatment(s). Education provided includes interventions, goals of care, swallow precautions, medications with side effects. Patient not alert or oriented enough at this time to understand education. Patient will answer questions with yes or no but not always appropriately. He will move all extremities but not always to command. Patient with diarrhea, black tarry stools, this was report to covering MD and PPI orders. Patient also developed Afib, notified, see new orders. Will continue to monitor.
[2021-10-06 07:41] LABS: Glucose Point of Care 315 mg/dL (70-110)
[2021-10-06] MEDS: insulin lispro 100 unit/1 mL SUBCUT ×4 (07:44→21:06)
[2021-10-06] MEDS: dextrose 5%-sod chloride 0.45% 1,000 ML 75 ML IV (07:44)
[2021-10-06] MEDS: cefepime 2,000 MG in sodium chloride 0.9% (plus) 50 ML 100 MG IV (07:44)
[2021-10-06] MEDS: digoxin 250 mcg Tablet PO (09:01)
[2021-10-06] MEDS: lactated ringers 500 ML 999 ML IV (09:01)
[2021-10-06] MEDS: sotalol 80 mg Tablet PO ×2 (09:01→17:32)
[2021-10-06] MEDS: insulin glargine 100 units/1 mL 20 UNIT SUBCUT (09:51)
--- NOTE | 2021-10-06 10:23 | PC.SOCIAL ---
IMM update IMM updated with patient's daughter as patient was resting in bed with eyes closed. Daughter verbalized an understanding. Copy Pg 2 left at bedside. Initialled, dated, timed, and placed in chart.
[2021-10-06 10:39] LABS: Hematocrit 29.2 % (42.0-52.0); Hemoglobin 9.3 g/dL (11.7-16.6)
[2021-10-06 11:22] LABS: Glucose Point of Care 347 mg/dL (70-110)
[2021-10-06] MEDS: pantoprazole 40 mg SDV IVP (11:33)
[2021-10-06] MEDS: fluconazole premix 200 MG/100 ML PREMIX 100 MG IV (11:37)
--- NOTE | 2021-10-06 11:40 | PC.NURSE ---
Cardizem gtt off due to hypotension
--- NOTE | 2021-10-06 15:33 | P.PN_ITS ---
Subjective Subjective: Interval history: ADequate UO UC+ carolyn BC prelim GNR WBC trending down DKA resolved Pt is awake and alert and has been asking for water since yesterday Overnight melanotic stool noticed by the nurse w BM CR 1.5 Na 150 : he has not eaten well in last 3 days Today I gave him 2 glasses of water which he drank without any aspiration Vitals/I&O/Wt Last Vital Signs Temp 97.2 F L 10/06/21 07:30 Pulse 101 H 10/06/21 14:00 Resp 46 H 10/06/21 12:30 BP 144/86 10/06/21 12:30 Pulse Ox 97 10/06/21 12:30 10/06/21 10/06/21 10/06/21 06:59 14:59 22:59 Intake Total 364.583 / 2283.831 1808.249 / 1808.249 Output Total 1200 / 2990 675 / 675 Balance -835.417 / -704.582 4534.249 / 1133.249 Weight last 48 hrs Weight 98.928 kg Physical Exam Narrative: EXAM NARRATIVE: Today he is much more awake and alert OAx3 GCS15 Dehydrated facial flusing abd soft BS+ no oedema urine color has improved NON focal neuro exam still fatigues ptosis PERRLA S1,s2 rvr doing well on 3 L NC Urinary Catheter Management^: Villanueva: Cath Placed During This Visit: yes, but has since been removed by the nurse Urinary Catheter Date of Insertion: 10/03/21 Urinary Catheter Time of Insertion: 12:00 Date Urinary Catheter Removed: 10/03/21 Time Urinary Catheter Discontinued: 14:15 Villanueva Latex: Cath Placed During This Visit: yes Reason for Continuing Indwelling Catheter: Accurate Measurement of Urinary Output in Critically Ill Patients Urinary Catheter Date of Insertion: 10/03/21 Urinary Catheter Time of Insertion: 14:44 Data : 10/06/21 09:41 10/06/21 02:26 Micro: Microbiology 10/03/21 11:50 Urine Culture - Final Urine,Clean Catch Carolyn tropicalis 10/06/21 02:26 Blood Culture - Preliminary Blood SPECIMEN COLLECTED 10/06/21 02:26 Blood Culture - Preliminary Blood SPECIMEN COLLECTED 10/03/21 Unknown Blood Culture - Preliminary Blood A&P Assessment and plan (1) Delirium: Status: Acute (2) RAI (acute kidney injury): Status: Acute (3) Obstructive pyelonephritis: Status: Acute (4) Left ureteral calculus: Status: Acute (5) Kidney stone on left side: Status: Acute (6) Diabetic foot ulcer: Status: Acute (7) 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 mellitus: Status: Acute (8) Anticoagulation adequate with anticoagulant therapy: Status: Acute (9) Atrial fibrillation: Status: Acute (10) Dehydration: Status: Acute (11) Hypernatremia: Status: Acute Additional A&P Information PLAN:- S/p stent placement UC+ carolyn BC+ prelim GNR On cefepime Wbc trending down afebirle Delirium DKa related and septic encephalopathy ' Improved on 09/04 CTA head and neck done which is unremarkable Repeat ct head neg B/l Ptosis facial anhydrosis no carotid dissection Dehydration on bipap on and off since admission dec input dec fluid intake today he is asking for water having dysphagia diet Speech eval needed one more time Recheck Na level Type 2 DM DKA resolved Hyperglycemia High SSI and inc lantus continue d5 for now and monitor BG Afib rbr Cardizem tuned off this am keep digoxin and sotalol held AC agent melanotic stool h&H stilghly low Bp stable Full code SPeech eval needed Attestations Medical Necessity Statement*: transfer out of icu tomorrow Time Spent in Patient Care: 16 - 35 minutes Coding Level of Care Code Acute 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
[2021-10-06 16:17] LABS: Sodium 151 mmol/L (136-145)
[2021-10-06 17:25] LABS: Glucose Point of Care 319 mg/dL (70-110)
[2021-10-06] MEDS: tamsulosin 0.4 mg Capsule PO (17:32)
[2021-10-06] MEDS: dextrose 5% 1,000 ML 100 ML IV (17:33)
--- NOTE | 2021-10-06 19:05 | PC.NURSE ---
Shift Note: Pt rested in bed throughout shift. He is becoming more alert. He will answer his date, name, and his daughter's name. He has ate at least 50% of all his meals, he has drank over 1000ml in fluids today. He started the shift off with Cardizem infusing, with a heart rate 130's. He was able to take his PO meds today., Heart rate controlled and Cardizem gtt off at 1130. Urine out put of 1400 ml noted, it is faintly pink tinged at end of shift. Frequent safety and comfort rounds continue. Orders and/or nursing care completed as indicated. Patient monitored for response to intervention and treatment(s). Education provided includes antibiotics, Cardizem, dehydration and drinking fluids, insulin Patient's b2b outside sales representative verbalized understanding of plan of care and medications. . Will continue to monitor.
[2021-10-06 19:40] LABS: Glucose Point of Care 378 mg/dL (70-110)
[2021-10-07] VITALS (47 sets, daily range): BP systolic 105–161; BP diastolic 65–104; PULSE 74–137; RESP 16–37; TEMP 35.8–37; O2SAT 88–100
[2021-10-07] MEDS: pantoprazole 40 mg SDV IVP ×3 (02:16→23:40)
[2021-10-07 04:06] LABS: Basophils # 0.1 10^3/uL (0.0-0.1); Basophils % 0.6 %; Eosinophils # 0.9 10^3/uL (0.0-0.8); Eosinophils % 5.7 %; Hematocrit 34.3 % (42.0-52.0); Hemoglobin 10.1 g/dL (11.7-16.6); Lymphocytes # 2.5 10^3/uL (0.8-4.8); Lymphocytes % 16.6 %; Mean Corpuscular HGB Conc 29.4 g/dL (30.0-36.0); Mean Corpuscular Hemoglobin 29.8 pg (28.0-34.0); Mean Corpuscular Volume 101.2 fl (80-94); Mean Platelet Volume 11.5 fL (7.4-10.4); Monocytes # 1.2 10^3/uL (0.2-0.9); Neutrophils % 67.9 %; Nucleated Red Blood Cells % 0 %; Platelet Count 210 10^3/cmm (130-400); Red Blood Count 3.39 10^6/uL (4.1-5.3); Red Cell Distribution Width 15.3 % (12.1-15.1)
[2021-10-07 04:26] LABS: Blood Urea Nitrogen 43 mg/dL (8-23); Calcium 8.1 mg/dL (8.5-10.5); Carbon Dioxide 18 mmol/L (22-29); Chloride 117 mmol/L (98-107); Glucose 280 mg/dL (65-115); Osmolality Calculated 327 mOsm/kg (285-295); Sodium 148 mmol/L (136-145)
[2021-10-07 04:35] LABS: Anion Gap 16.8 (5-19); Potassium 3.8 mmol/L (3.5-5.1)
[2021-10-07 04:40] LABS: Slide Review Slide Review Perform
[2021-10-07] MEDS: dextrose 5% 1,000 ML 100 ML IV (04:49)
--- NOTE | 2021-10-07 06:02 | PC.NURSE ---
Shift Note Frequent safety and comfort rounds continue. Orders and/or nursing care completed as indicated. Patient monitored for response to intervention and treatment(s). Education provided includes medications with side effects, fall precautions, swallow precautions, rankin care, importance of turning in bed. Patient with confusion but able comprehend education and verbalizes understanding of education. Patients mental status has greatly improved, following commands, speech clear, answering questions appropriately, moving all extremities in bed, adjusting self in bed. Lines and tubes patent. Will continue to monitor.
[2021-10-07 07:45] LABS: Glucose Point of Care 325 mg/dL (70-110)
[2021-10-07] MEDS: digoxin 250 mcg Tablet PO (08:15)
[2021-10-07] MEDS: sotalol 80 mg Tablet PO ×2 (08:15→17:45)
[2021-10-07] MEDS: cefepime 2,000 MG in sodium chloride 0.9% (plus) 50 ML 100 MG IV (08:15)
[2021-10-07] MEDS: amlodipine 5 mg Tablet PO (08:15)
[2021-10-07] MEDS: insulin lispro 100 unit/1 mL SUBCUT ×4 (08:17→21:03)
[2021-10-07] MEDS: insulin glargine 100 units/1 mL 25 UNIT SUBCUT (09:17)
--- NOTE | 2021-10-07 10:07 | PC.CHAP ---
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 finding fastener visit [] Patient/Family/Request visit [] Outpatient visit [] Follow-up visit [] Physician referral [] Code/Alert [x] Routine visit [] Staff referral [] Actively dying [] Patient sleeping [] Family support [] [] Out of room [] Palliative care [] [x] Receiving care in room [] Pre-surgical visit [] Trauma [] Long length of stay [x] ICU visit [] Other: Relational/Emotional Strength [] Patient feels connected with others/family/visitors/staff [] Distress [] Loneliness/isolation [] Abandonment Spirituality of Patient [] Person of Melva [] Attends Faith of their Melva [] Believes in Prayer [] Reads Bible or Congregational materials [] There are Spiritual issues to be addressed Tig Welder Interventions [x] Prayer [x] Active listening [x] Non-anxious presence [x] Spiritual/emotional support [] Crisis/trauma care [] Spiritual counseling [] Bereavement support [] Provided bereavement packet [] Provided Bible/devotional materials [] Provided toy/stuffed animal, coloring book to patient or family member [] Provided Communion [] Anointing/[place] [] Salvation [x] Completed spiritual assessment [] Other: Impact on Illness or Injury [] Angry [] Fearful [] Anxious [] Often cries [] Exhaustion [] Unable to work [] Unable to attend alevism [] Unable to walk/stand [] Unable to read [] Unable to drive [] Unable to eat/drink [] Unable to sleep [] Unable to be with family [] Patient intubated [] Other: Summary patient more alert than usual... eating some food.. staff assisting in feeding.. Time spent with patient 15 min
[2021-10-07] MEDS: insulin glargine 100 units/1 mL 15 UNIT SUBCUT (10:39)
[2021-10-07] MEDS: fluconazole premix 200 MG/100 ML PREMIX 100 MG IV (10:40)
[2021-10-07] MEDS: acetaminophen 500 mg Tablet PO (10:40)
[2021-10-07 11:32] LABS: Glucose Point of Care 379 mg/dL (70-110)
[2021-10-07] MEDS: dextrose 5% 1,000 ML 75 ML IV ×2 (12:34→23:39)
--- NOTE | 2021-10-07 14:26 | P.PN_ITS ---
Subjective Subjective: Interval history: Patient was seen and examined this morning, currently is alert awake, hypernatremia Is improving, leukocyte count is also trending down, serum creatinine is improved, BUN is improving, heart rate is better controlled today. Medications: Medication Review Details: Generic Name Dose Route Start Last Admin Trade Name Freq PRN Reason Stop Dose Admin Acetaminophen 500 mg 10/03/21 12:47 10/07/21 10:40 Acetaminophen 50 0 Mg Tablet PO 500 mg Q4H PRN Administration fever/pain Amlodipine Besylat e 5 mg 10/05/21 09:00 10/07/21 08:15 Amlodipine 5 Mg Tablet PO 5 mg DAILY ROSALBA Administration Digoxin 250 mcg 10/05/21 09:00 10/07/21 08:15 Digoxin 250 Mcg Tablet PO 250 mcg DAILY ROSALBA Administration Cefepime HCl 2,000 mg/ Sodium 50 mls @ 100 mls/ hr 10/05/21 07:45 10/07/21 09:15 Chloride IV Infused Q24H ROSALBA Infusion Protocol Fluconazole 200 mg in 100 mls @ 100 mls/hr 10/05/21 11:15 10/07/21 10:40 Diflucan Premix IV 100 mls/hr Q24H ROSALBA Administration Diltiazem HCl 125 mg/ Sodium 125 mls @ 0 mls/h r 10/06/21 05:45 10/07/21 09:16 Chloride IV Infused .Q0M ROSALBA Titration Protocol Per Protocol Dextrose 1,000 mls @ 75 ml s/hr 10/06/21 16:45 10/07/21 12:34 D5w IV 75 mls/hr .[id number] ROSALBA Administration Insulin Glargine 25 unit 10/07/21 09:00 10/07/21 09:17 Insulin Glargine 100 Units/1 Ml SUBCUT 25 unit DAILY ROSALBA Administration Insulin Human Lisp ro 0 unit 10/06/21 08:00 10/07/21 12:34 Insulin Lispro 1 00 Unit/1 Ml SUBCUT 16 unit WM&BEDTIME ROSALBA Administration Protocol Metoprolol Tartrat e 5 mg 10/05/21 21:02 10/06/21 03:12 Metoprolol Tartr ate 1 Mg/1 Ml Sdv 5 Ml IVP 5 mg Q4H PRN Administration tachycardia >140 Pantoprazole Sodiu m 40 mg 10/05/21 23:00 10/07/21 10:39 Pantoprazole 40 Mg Sdv IVP 40 mg Q12H ROSALBA Administration Rivaroxaban 20 mg 10/04/21 11:00 10/05/21 10:55 Rivaroxaban 10 M g Tablet PO Not Given DAILY [facility] Senna/Docusate Sod ium 1 tab 10/04/21 09:00 10/07/21 08:18 Sennosides-Docus ate Tablet PO Not Given DAILY [facility] Sotalol HCl 80 mg 10/05/21 07:40 10/07/21 08:15 Sotalol 80 Mg Ta blet PO 80 mg BID ROSALBA Administration Tamsulosin HCl 0.4 mg 10/05/21 18:00 10/06/21 17:32 Tamsulosin 0.4 M g Capsule PO 0.4 mg QPM ROSALBA Administration Vitals/I&O/Wt Last Vital Signs Temp 96.4 F L 10/07/21 07:30 Pulse 100 10/07/21 14:00 Resp 16 10/07/21 14:00 BP 135/75 10/07/21 14:00 Pulse Ox 98 10/07/21 14:00 10/06/21 10/07/21 10/07/21 22:59 06:59 14:59 Intake Total 365 / 2273.249 1500 / 3773.249 2637.5 / 2637.5 Output Total 800 / 1475 1275 / 2750 Balance -435 / 798.249 225 / 7914.258 6041.5 / 2637.5 Physical Exam Const: COMMON NORMALS: patient oriented x3 HENMT: COMMON NORMALS: normocephalic and atraumatic HEAD & SCALP: normocephalic and atraumatic Resp: COMMON NORMALS: clear to auscultation bilaterally AUSCULTATION: clear to auscultation bilaterally Cardio: COMMON NORMALS: regular rate, regular rhythm, S1 normal heart sound present, S2 normal heart sound present, No gallops present (Cardio), No murmurs present (Cardio), No rub (Cardio) and Peripheral pulses 2+ throughout RATE: regular rate RHYTHM: regular rhythm HEART SOUNDS: S1 normal heart sound present and S2 normal heart sound present PERIPHERAL PULSES: Peripheral pulses 2+ throughout GI: COMMON NORMALS: Normal to inspection, nondistended, normoactive bowel sounds present, Soft to palpation, non-tender, No hepatosplenomegaly present and no masses AUSCULTATION: Yes normoactive bowel sounds PALPATION: Yes Soft to palpation and Yes No hepatosplenomegaly present RECTAL EXAM: Yes deferred Extremity: COMMON NORMALS: no clubbing, cyanosis or edema and no pedal edema Neuro: COMMON NORMALS: patient oriented x3 Urinary Catheter Management^: Villanueva: Cath Placed During This Visit: yes, but has since been removed by the nurse Urinary Catheter Date of Insertion: 10/03/21 Urinary Catheter Time of Insertion: 12:00 Date Urinary Catheter Removed: 10/03/21 Time Urinary Catheter Discontinued: 14:15 Villanueva Latex: Cath Placed During This Visit: yes Reason for Continuing Indwelling Catheter: Accurate Measurement of Urinary Output in Critically Ill Patients Urinary Catheter Date of Insertion: 10/03/21 Urinary Catheter Time of Insertion: 14:44 Data : 10/07/21 03:33 10/07/21 03:33 Micro: Microbiology 10/05/21 18:55 Urine Culture - Final Urine Catheterized Carolyn tropicalis 10/06/21 02:26 Blood Culture - Preliminary Blood NEGATIVE TO DATE 10/06/21 02:26 Blood Culture - Preliminary Blood NEGATIVE TO DATE 10/03/21 11:50 Urine Culture - Final Urine,Clean Catch Carolyn tropicalis A&P Assessment and plan (1) Acute encephalopathy: Acute metabolic encephalopathy: Secondary to sepsis and DKA CT head without contrast: No acute intracranial pathology CT head and neck: No flow-limiting stenosis. DKA has resolved. Urine culture: Carolyn tropicalis Blood culture:10/07:GNR Repeat blood culture: Xray chest: Minimal basilar patchy opacities CT abdomen and pelvis:persistent left renal nephrogram with high-grade obstruction from the 6.4 mm proximal ureteral calculus. Mild ureterectasis and mild hydronephrosis. Striated nephrogram compatible with pyelonephritis. No hydronephrosis in right kidney. Follow procalcitonin. Continue cefepime and fluconazole for now. Currently on: Status: Acute (2) Sepsis: Sepsis secondary to obstructive pyelonephritis. Antibiotic as above Status: Acute (3) RAI (acute kidney injury): RAI: Secondary to obstructive uropathy, sepsis, as well as prerenal RAI secondary to dehydration. Baseline serum creatinine: 0.8-1 Current serum creatinine:1.3 Need to monitor BMP Avoid nephrotoxic Continue IV hydration Monitor intake output charting Status: Acute (4) Atrial fibrillation: Cardizem tuned off On Sotalol and digoxin Anticoagulation on hold, due to concern for hematuria Follow a.m. serum digoxin level Status: Acute (5) Obstructive pyelonephritis: Status: Acute (6) Left ureteral calculus: Status: Acute (7) Kidney stone on left side: Status: Acute (8) Diabetic foot ulcer: Status: Acute (9) 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 mellitus: Status: Acute (10) Anticoagulation adequate with anticoagulant therapy: Status: Acute (11) Dehydration: Status: Acute (12) Hypernatremia: Status: Acute Additional A&P Information PLAN:- S/p stent placement UC+ carolyn BC+ prelim GNR On cefepime Wbc trending down afebirle Dehydration on bipap on and off since admission dec input dec fluid intake today he is asking for water having dysphagia diet Speech eval needed one more time Recheck Na level Type 2 DM DKA resolved Hyperglycemia High SSI and inc lantus continue d5 for now and monitor BG Afib rbr melanotic stool h&H stilghly low Bp stable Full code SPeech eval needed Attestations Medical Necessity Statement*: Patient needs to be in hospital for management of above defined problems Time Spent in Patient Care: Greater than 35 minutes (>than 50% of time spent in counselling and/or direct pt care on unit) . Critical Care Time: Critical Care Time (min): 40 Other Attestations: The high probability of a clinically significant, sudden or life threatening deterioration of the patient's [] system(s) required my full and direct attention, intervention and personal management. The critical care time is as shown. 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
[2021-10-07 17:04] LABS: Glucose Point of Care 246 mg/dL (70-110)
[2021-10-07] MEDS: tamsulosin 0.4 mg Capsule PO (17:45)
--- NOTE | 2021-10-07 18:43 | PC.NURSE ---
Shift Note Pt much more alert today. Knows he is in the hospital at [place]. He complained of back pain , acetaminophen admin once. He complains at position changes, he does not appreciate that. He still has D5 infusing rate has decreased to 75ml/hr this shift. He received an additional 15 units of Lantus this am. He has had adequate oral fluid intake but has refused most of the meals with a Yuck . He has been up to BSC once this am. PT worked with him this afternoon. pale yellow with a slight pink tinge, 1250 output today. Frequent safety and comfort rounds continue. Orders and/or nursing care completed as indicated. Patient monitored for response to intervention and treatment(s). Education provided includes drinking and eating, Glucerna, working with PT, and Lantus, . Patient and/or high school admissions representative verbalized understanding of medications, progress and plan of care. Pt needs re-enforcement as he is still slightly confused. Will continue to monitor.
[2021-10-07 21:31] LABS: Glucose Point of Care 288 mg/dL (70-110)
[2021-10-08] VITALS (13 sets, daily range): BP systolic 106–128; BP diastolic 56–86; PULSE 72–105; RESP 18–21; TEMP 36.3–36.6; O2SAT 95–98
[2021-10-08 04:44] LABS: Digoxin 0.8 ng/mL (0.6-1.2)
[2021-10-08 04:52] LABS: Hematocrit 29.9 % (42.0-52.0); Hemoglobin 9.5 g/dL (11.7-16.6); Mean Corpuscular HGB Conc 31.8 g/dL (30.0-36.0); Mean Corpuscular Hemoglobin 30.5 pg (28.0-34.0); Mean Corpuscular Volume 96.1 fl (80-94); Mean Platelet Volume 10.9 fL (7.4-10.4); Platelet Count 381 10^3/cmm (130-400); Red Blood Count 3.11 10^6/uL (4.1-5.3); Red Cell Distribution Width 14.9 % (12.1-15.1); White Blood Count 17.5 10^3/uL (4.0-10.0)
[2021-10-08 04:58] LABS: Procalcitonin 0.42 ng/mL (0-0.5)
[2021-10-08 05:10] LABS: Alanine Aminotransferase 52 U/L (0-41); Albumin Level 2.6 g/dL (3.5-5.2); Alkaline Phosphatase 83 IU/L (40-130); Anion Gap 16.4 (5-19); Aspartate Amino Transferase 42 U/L (0-40); Blood Urea Nitrogen 31 mg/dL (8-23); Calcium 7.8 mg/dL (8.5-10.5); Carbon Dioxide 21 mmol/L (22-29); Chloride 107 mmol/L (98-107); Globulin 3.3 g/dL (1.3-4.6); Glucose 209 mg/dL (65-115); Osmolality Calculated 305 mOsm/kg (285-295); Potassium 3.4 mmol/L (3.5-5.1); Sodium 141 mmol/L (136-145); Total Bilirubin 0.3 mg/dL (0.15-1.2); Total Protein 5.9 g/dL (6.6-8.7)
[2021-10-08 07:18] LABS: Slide Review Slide Review Perform
[2021-10-08 07:20] LABS: Eosinophils 5 %; Lymphocytes 16 %; Segmented Neutrophils 60 %
[2021-10-08 07:21] LABS: Platelet Estimate Normal (Normal); Poikilocytosis 1+
[2021-10-08 07:23] LABS: Total Cells Counted 100 (0-100)
[2021-10-08 08:03] LABS: Glucose Point of Care 300 mg/dL (70-110)
[2021-10-08] MEDS: cefepime 2,000 MG in sodium chloride 0.9% (plus) 50 ML 100 MG IV (09:13)
[2021-10-08] MEDS: sodium chloride 0.9% 1,000 ML 100 ML IV ×2 (09:14→21:59)
[2021-10-08] MEDS: insulin lispro 100 unit/1 mL SUBCUT ×3 (09:14→18:00)
[2021-10-08] MEDS: digoxin 250 mcg Tablet PO (09:15)
[2021-10-08] MEDS: sotalol 80 mg Tablet PO ×2 (09:15→18:00)
[2021-10-08] MEDS: lidocaine 1% 5 ML in potassium chloride premix 100 ML 25 ML IV (09:15)
[2021-10-08] MEDS: amlodipine 5 mg Tablet PO (09:15)
[2021-10-08] MEDS: insulin glargine 100 units/1 mL 25 UNIT SUBCUT (09:16)
[2021-10-08] MEDS: acetaminophen 500 mg Tablet PO (11:16)
[2021-10-08] MEDS: pantoprazole 40 mg SDV IVP ×2 (11:16→21:55)
[2021-10-08] MEDS: collagenase oint 30 gm 1 APPLIC TOPICAL (11:17)
[2021-10-08] MEDS: fluconazole premix 200 MG/100 ML PREMIX 100 MG IV (11:17)
[2021-10-08 12:05] LABS: Glucose Point of Care 262 mg/dL (70-110)
--- NOTE | 2021-10-08 13:16 | P.PN_ITS ---
Subjective Subjective: Interval history: Patient was seen and examined this morning, much more alert awake oriented today, Says that he feels slightly weak, hypernatremia has resolved, continue to have robust urine output, is in polyuric phase of ATN, serum creatinine is improving, heart rate is well controlled, continue to remain afebrile. His other vitals and labs have been reviewed. Medications: Medication Review Details: Generic Name Dose Route Start Last Admin Trade Name Janq PRN Reason Stop Dose Admin Acetaminophen 500 mg 10/03/21 12:47 10/07/21 10:40 Acetaminophen 50 0 Mg Tablet PO 500 mg Q4H PRN Administration fever/pain Amlodipine Besylat e 5 mg 10/05/21 09:00 10/07/21 08:15 Amlodipine 5 Mg Tablet PO 5 mg DAILY ROSALBA Administration Digoxin 250 mcg 10/05/21 09:00 10/07/21 08:15 Digoxin 250 Mcg Tablet PO 250 mcg DAILY ROSALBA Administration Cefepime HCl 2,000 mg/ Sodium 50 mls @ 100 mls/ hr 10/05/21 07:45 10/07/21 09:15 Chloride IV Infused Q24H ROSALBA Infusion Protocol Fluconazole 200 mg in 100 mls @ 100 mls/hr 10/05/21 11:15 10/07/21 10:40 Diflucan Premix IV 100 mls/hr Q24H ROSALBA Administration Diltiazem HCl 125 mg/ Sodium 125 mls @ 0 mls/h r 10/06/21 05:45 10/07/21 09:16 Chloride IV Infused .Q0M ROSALBA Titration Protocol Per Protocol Dextrose 1,000 mls @ 75 ml s/hr 10/06/21 16:45 10/07/21 12:34 D5w IV 75 mls/hr .[id number] ROSALBA Administration Insulin Glargine 25 unit 10/07/21 09:00 10/07/21 09:17 Insulin Glargine 100 Units/1 Ml SUBCUT 25 unit DAILY ROSALBA Administration Insulin Human Lisp ro 0 unit 10/06/21 08:00 10/07/21 12:34 Insulin Lispro 1 00 Unit/1 Ml SUBCUT 16 unit WM&BEDTIME ROSALBA Administration Protocol Metoprolol Tartrat e 5 mg 10/05/21 21:02 10/06/21 03:12 Metoprolol Tartr ate 1 Mg/1 Ml Sdv 5 Ml IVP 5 mg Q4H PRN Administration tachycardia >140 Pantoprazole Sodiu m 40 mg 10/05/21 23:00 10/07/21 10:39 Pantoprazole 40 Mg Sdv IVP 40 mg Q12H ROSALBA Administration Rivaroxaban 20 mg 10/04/21 11:00 10/05/21 10:55 Rivaroxaban 10 M g Tablet PO Not Given DAILY [facility] Senna/Docusate Sod ium 1 tab 10/04/21 09:00 10/07/21 08:18 Sennosides-Docus ate Tablet PO Not Given DAILY ROSALBA Sotalol HCl 80 mg 10/05/21 07:40 10/07/21 08:15 Sotalol 80 Mg Ta blet PO 80 mg BID ROSALBA Administration Tamsulosin HCl 0.4 mg 10/05/21 18:00 10/06/21 17:32 Tamsulosin 0.4 M g Capsule PO 0.4 mg QPM ROSALBA Administration Vitals/I&O/Wt Last Vital Signs Temp 97.4 F L 10/08/21 11:20 Pulse 72 10/08/21 11:59 Resp 20 H 10/08/21 11:59 BP 120/80 10/08/21 11:20 Pulse Ox 97 10/08/21 11:59 10/07/21 10/08/21 10/08/21 22:59 06:59 14:59 Intake Total 800 / 3467.5 2150 / 5617.5 Output Total 2350 / 3350 5150 / 8500 Balance -1550 / 117.5 -3000 / -2882.5 Physical Exam Const: COMMON NORMALS: patient oriented x3 HENMT: COMMON NORMALS: normocephalic and atraumatic HEAD & SCALP: normocephalic and atraumatic Resp: COMMON NORMALS: clear to auscultation bilaterally AUSCULTATION: clear to auscultation bilaterally Cardio: COMMON NORMALS: regular rate, regular rhythm, S1 normal heart sound present, S2 normal heart sound present, No gallops present (Cardio), No murmurs present (Cardio), No rub (Cardio) and Peripheral pulses 2+ throughout RATE: regular rate RHYTHM: regular rhythm HEART SOUNDS: S1 normal heart sound present and S2 normal heart sound present PERIPHERAL PULSES: Peripheral pulses 2+ throughout GI: COMMON NORMALS: Normal to inspection, nondistended, normoactive bowel sounds present, Soft to palpation, non-tender, No hepatosplenomegaly present and no masses AUSCULTATION: Yes normoactive bowel sounds PALPATION: Yes Soft to palpation and Yes No hepatosplenomegaly present RECTAL EXAM: Yes deferred Extremity: COMMON NORMALS: no clubbing, cyanosis or edema and no pedal edema Neuro: COMMON NORMALS: patient oriented x3 Urinary Catheter Management^: Villanueva: Cath Placed During This Visit: yes, but has since been removed by the nurse Urinary Catheter Date of Insertion: 10/03/21 Urinary Catheter Time of Insertion: 12:00 Date Urinary Catheter Removed: 10/03/21 Time Urinary Catheter Discontinued: 14:15 Villanueva Latex: Cath Placed During This Visit: yes Reason for Continuing Indwelling Catheter: Accurate Measurement of Urinary Output in Critically Ill Patients Urinary Catheter Date of Insertion: 10/03/21 Urinary Catheter Time of Insertion: 14:44 Data : 10/08/21 03:40 10/08/21 03:40 Micro: Microbiology 10/05/21 18:55 Urine Culture - Final Urine Catheterized Marci tropicalis A&P Assessment and plan (1) Acute encephalopathy: Acute metabolic encephalopathy: Secondary to sepsis and DKA CT head without contrast: No acute intracranial pathology CT head and neck: No flow-limiting stenosis. DKA has resolved. Urine culture: Marci tropicalis Blood culture:10/07:GNR Repeat blood culture: Xray chest: Minimal basilar patchy opacities CT abdomen and pelvis:persistent left renal nephrogram with high-grade obstruction from the 6.4 mm proximal ureteral calculus. Mild ureterectasis and mild hydronephrosis. Striated nephrogram compatible with pyelonephritis. No hydronephrosis in right kidney. Follow procalcitonin. Continue cefepime and fluconazole for now. Currently on: Status: Acute (2) Sepsis: Sepsis secondary to obstructive pyelonephritis. Antibiotic as above Status: Acute (3) RAI (acute kidney injury): RAI: Secondary to obstructive uropathy, sepsis, as well as prerenal RAI secondary to dehydration. Baseline serum creatinine: 0.8-1 Current serum creatinine:1.1 Need to monitor BMP Avoid nephrotoxic Continue IV hydration Monitor intake output charting Status: Acute (4) Atrial fibrillation: Cardizem tuned off On Sotalol and digoxin serum digoxin level : Normal Anticoagulation on hold, due to concern for hematuria, as well as melanotic stool. Monitor H&H FOBT Status: Acute (5) Obstructive pyelonephritis: S/p stent placement Status: Acute (6) Left ureteral calculus: Status: Acute (7) Kidney stone on left side: Status: Acute (8) Diabetic foot ulcer: Status: Acute (9) 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 mellitus: Status: Acute (10) Anticoagulation adequate with anticoagulant therapy: Status: Acute (11) Dehydration: Status: Acute (12) Hypernatremia: Status: Acute Additional A&P Information PLAN:- S/p stent placement UC+ marci BC+ prelim GNR On cefepime Wbc trending down afebirle Dehydration on bipap on and off since admission dec input dec fluid intake today he is asking for water having dysphagia diet Speech eval needed one more time Recheck Na level Type 2 DM DKA resolved Hyperglycemia High SSI and inc lantus continue d5 for now and monitor BG Afib rbr melanotic stool h&H stilghly low Bp stable Full code SPeech eval needed Attestations Medical Necessity Statement*: Patient is to be in hospital for management of sepsis. Coding Level of Care Code Acute Digital Advisor for Chg Fwd Exam Detailed Diagnoses Acute encephalopathy G93.40 Sepsis A41.9 RAI (acute kidney injury) N17.9 Atrial fibrillation I48.91 Obstructive pyelonephritis N11.1 Left ureteral calculus N20.1 Kidney stone on left side N20.0 Diabetic foot ulcer E11.621; L97.509 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 mellitus E11.40 Anticoagulation adequate with anticoagulant therapy Z79.01 Dehydration E86.0 Hypernatremia E87.0
--- NOTE | 2021-10-08 16:20 | PC.NURSE ---
0800 Patient assessed. Alert to self and place, disoriented to time. Speech clear, facial movements symmetrical. Lungs clear. Heart tones normal. Patient swallow am meds without difficulty. Vitals at 0700 BP 107/78, HR 95, and O2 97% on room air; 0800 BP126/70, HR 99, O2 96%; 0900 BP 125/76, HR 94, O2 96%. Patient transferred to the medical floor without any issues.
[2021-10-08 17:17] LABS: Glucose Point of Care 196 mg/dL (70-110)
[2021-10-08] MEDS: tamsulosin 0.4 mg Capsule PO (18:00)
--- NOTE | 2021-10-08 18:38 | PC.NURSE ---
SHIFT SUMMARY PATIENT HAS DONE WELL TODAY. NEW IV PLACED. 900ML OF URINE OUTPUT. PATIENT HAS HAD A SMALL BOWEL MOVEMENT. UP TO BEDSIDE COMMODE WITH ONE PERSON ASSIST. CURRENTLY RESTING IN BED WITH DAUGHTER AT BEDSIDE.
[2021-10-08 21:07] LABS: Glucose Point of Care 300 mg/dL (70-110)
[2021-10-09] VITALS (11 sets, daily range): BP systolic 115–136; BP diastolic 70–85; PULSE 64–89; RESP 16–20; TEMP 36.4–37.1; O2SAT 92–98
[2021-10-09 06:14] LABS: Basophils # 0.1 10^3/uL (0.0-0.1); Basophils % 0.5 %; Eosinophils # 0.7 10^3/uL (0.0-0.8); Eosinophils % 4.1 %; Hematocrit 29.7 % (42.0-52.0); Hemoglobin 9.4 g/dL (11.7-16.6); Lymphocytes # 3.4 10^3/uL (0.8-4.8); Lymphocytes % 19.3 %; Mean Corpuscular HGB Conc 31.6 g/dL (30.0-36.0); Mean Corpuscular Hemoglobin 30.4 pg (28.0-34.0); Mean Corpuscular Volume 96.1 fl (80-94); Mean Platelet Volume 10.7 fL (7.4-10.4); Monocytes # 0.9 10^3/uL (0.2-0.9); Monocytes % 5.2 %; Neutrophils # 12.04 10^3/uL (1.8-7.7); Neutrophils % 69.2 %; Nucleated Red Blood Cells % 0 %; Platelet Count 445 10^3/cmm (130-400); Red Blood Count 3.09 10^6/uL (4.1-5.3); Red Cell Distribution Width 14.6 % (12.1-15.1); White Blood Count 17.4 10^3/uL (4.0-10.0)
[2021-10-09 06:32] LABS: Alanine Aminotransferase 30 U/L (0-41); Albumin Level 2.5 g/dL (3.5-5.2); Alkaline Phosphatase 88 IU/L (40-130); Anion Gap 15.5 (5-19); Aspartate Amino Transferase 17 U/L (0-40); Blood Urea Nitrogen 23 mg/dL (8-23); Calcium 7.6 mg/dL (8.5-10.5); Carbon Dioxide 20 mmol/L (22-29); Chloride 108 mmol/L (98-107); Globulin 3.2 g/dL (1.3-4.6); Glucose 230 mg/dL (65-115); Osmolality Calculated 301 mOsm/kg (285-295); Potassium 3.5 mmol/L (3.5-5.1); Sodium 140 mmol/L (136-145); Total Bilirubin 0.3 mg/dL (0.15-1.2); Total Protein 5.7 g/dL (6.6-8.7)
[2021-10-09 06:43] LABS: Glucose Point of Care 267 mg/dL (70-110)
[2021-10-09 07:05] LABS: Slide Review Slide Review Perform
[2021-10-09] MEDS: sodium chloride 0.9% 1,000 ML 100 ML IV (07:56)
[2021-10-09] MEDS: cefepime 2,000 MG in sodium chloride 0.9% (plus) 50 ML 100 MG IV ×2 (07:56→19:56)
[2021-10-09] MEDS: sennosides-docusate Tablet 1 TAB PO (07:57)
[2021-10-09] MEDS: insulin lispro 100 unit/1 mL SUBCUT ×3 (07:57→17:33)
[2021-10-09] MEDS: digoxin 250 mcg Tablet PO (07:59)
[2021-10-09] MEDS: insulin glargine 100 units/1 mL 25 UNIT SUBCUT (07:59)
[2021-10-09] MEDS: sotalol 80 mg Tablet PO ×2 (08:00→17:25)
[2021-10-09] MEDS: amlodipine 5 mg Tablet PO (08:00)
[2021-10-09] MEDS: collagenase oint 30 gm 1 APPLIC TOPICAL (10:56)
[2021-10-09] MEDS: pantoprazole 40 mg SDV IVP ×2 (10:56→22:04)
[2021-10-09 12:10] LABS: Glucose Point of Care 234 mg/dL (70-110)
[2021-10-09] MEDS: fluconazole premix 200 MG/100 ML PREMIX 100 MG IV (13:46)
--- NOTE | 2021-10-09 14:32 | PC.SOCIAL ---
IMM Update: pg 2 of IMM updated and reviewed w/ patient. Copy provided.
--- NOTE | 2021-10-09 15:22 | P.PN_ITS ---
Subjective Subjective: Interval history: Patient was seen and examined this morning,no acute events overnight, serum sodium and serum creatinine has normalized, WBC count has : Remains high , the patient has continued to remain afebrile, hemodynamically stable.Blood cultures have remained negative. Cefepime dose has been readjusted based on his improved renal function. Currently patient has not passed any stool, hemoglobin has been stable around 9.5. Will plan to resume Xarelto and monitor Hb. Medications: Medication Review Details: Generic Name Dose Route Start Last Admin Trade Name Janq PRN Reason Stop Dose Admin Acetaminophen 500 mg 10/03/21 12:47 10/07/21 10:40 Acetaminophen 50 0 Mg Tablet PO 500 mg Q4H PRN Administration fever/pain Amlodipine Besylat e 5 mg 10/05/21 09:00 10/07/21 08:15 Amlodipine 5 Mg Tablet PO 5 mg DAILY ROSALBA Administration Digoxin 250 mcg 10/05/21 09:00 10/07/21 08:15 Digoxin 250 Mcg Tablet PO 250 mcg DAILY ROSALBA Administration Cefepime HCl 2,000 mg/ Sodium 50 mls @ 100 mls/ hr 10/05/21 07:45 10/07/21 09:15 Chloride IV Infused Q24H ROSALBA Infusion Protocol Fluconazole 200 mg in 100 mls @ 100 mls/hr 10/05/21 11:15 10/07/21 10:40 Diflucan Premix IV 100 mls/hr Q24H ROSALBA Administration Diltiazem HCl 125 mg/ Sodium 125 mls @ 0 mls/h r 10/06/21 05:45 10/07/21 09:16 Chloride IV Infused .Q0M ROSALBA Titration Protocol Per Protocol Dextrose 1,000 mls @ 75 ml s/hr 10/06/21 16:45 10/07/21 12:34 D5w IV 75 mls/hr .[id number] ROSALBA Administration Insulin Glargine 25 unit 10/07/21 09:00 10/07/21 09:17 Insulin Glargine 100 Units/1 Ml SUBCUT 25 unit DAILY ROSALBA Administration Insulin Human Lisp ro 0 unit 10/06/21 08:00 10/07/21 12:34 Insulin Lispro 1 00 Unit/1 Ml SUBCUT 16 unit WM&BEDTIME ROSALBA Administration Protocol Metoprolol Tartrat e 5 mg 10/05/21 21:02 10/06/21 03:12 Metoprolol Tartr ate 1 Mg/1 Ml Sdv 5 Ml IVP 5 mg Q4H PRN Administration tachycardia >140 Pantoprazole Sodiu m 40 mg 10/05/21 23:00 10/07/21 10:39 Pantoprazole 40 Mg Sdv IVP 40 mg Q12H ROSALBA Administration Rivaroxaban 20 mg 10/04/21 11:00 10/05/21 10:55 Rivaroxaban 10 M g Tablet PO Not Given DAILY [facility] Senna/Docusate Sod ium 1 tab 10/04/21 09:00 10/07/21 08:18 Sennosides-Docus ate Tablet PO Not Given DAILY [facility] Sotalol HCl 80 mg 10/05/21 07:40 10/07/21 08:15 Sotalol 80 Mg Ta blet PO 80 mg BID ROSALBA Administration Tamsulosin HCl 0.4 mg 10/05/21 18:00 10/06/21 17:32 Tamsulosin 0.4 M g Capsule PO 0.4 mg QPM ROSALBA Administration Vitals/I&O/Wt Last Vital Signs Temp 98 F 10/09/21 11:56 Pulse 89 10/09/21 11:56 Resp 16 10/09/21 11:56 BP 122/83 10/09/21 11:56 Pulse Ox 96 10/09/21 11:56 10/09/21 10/09/21 10/09/21 06:59 14:59 22:59 Intake Total 1306.667 / 1306.667 Output Total 800 / 1700 Balance -800 / 515 1306.667 / 1306.667 Physical Exam Const: COMMON NORMALS: patient oriented x3 HENMT: COMMON NORMALS: normocephalic and atraumatic HEAD & SCALP: normocephalic and atraumatic Resp: COMMON NORMALS: clear to auscultation bilaterally AUSCULTATION: clear to auscultation bilaterally Cardio: COMMON NORMALS: regular rate, regular rhythm, S1 normal heart sound present, S2 normal heart sound present, No gallops present (Cardio), No murmurs present (Cardio), No rub (Cardio) and Peripheral pulses 2+ throughout RATE: regular rate RHYTHM: regular rhythm HEART SOUNDS: S1 normal heart sound present and S2 normal heart sound present PERIPHERAL PULSES: Peripheral pulses 2+ throughout GI: COMMON NORMALS: Normal to inspection, nondistended, normoactive bowel sounds present, Soft to palpation, non-tender, No hepatosplenomegaly present and no masses AUSCULTATION: Yes normoactive bowel sounds PALPATION: Yes Soft to palpation and Yes No hepatosplenomegaly present RECTAL EXAM: Yes deferred Extremity: COMMON NORMALS: no clubbing, cyanosis or edema and no pedal edema Neuro: COMMON NORMALS: patient oriented x3 Urinary Catheter Management^: Villanueva: Cath Placed During This Visit: yes, but has since been removed by the nurse Urinary Catheter Date of Insertion: 10/03/21 Urinary Catheter Time of Insertion: 12:00 Date Urinary Catheter Removed: 10/03/21 Time Urinary Catheter Discontinued: 14:15 Villanueva Latex: Cath Placed During This Visit: yes Reason for Continuing Indwelling Catheter: Other Urinary Catheter Date of Insertion: 10/03/21 Urinary Catheter Time of Insertion: 14:44 Data : 10/09/21 04:38 10/09/21 04:38 Micro: Microbiology 10/03/21 Unknown Blood Culture - Preliminary Blood 10/03/21 10:46 Blood Culture - Final Blood NO GROWTH AFTER 5 DAYS A&P Assessment and plan (1) Acute encephalopathy: Acute metabolic encephalopathy: Secondary to sepsis and DKA CT head without contrast: No acute intracranial pathology CT head and neck: No flow-limiting stenosis. DKA has resolved. Urine culture: Marci tropicalis Blood culture:10/07:GNR Repeat blood culture: Xray chest: Minimal basilar patchy opacities CT abdomen and pelvis:persistent left renal nephrogram with high-grade obstruction from the 6.4 mm proximal ureteral calculus. Mild ureterectasis and mild hydronephrosis. Striated nephrogram compatible with pyelonephritis. No hydronephrosis in right kidney. Follow procalcitonin. Continue cefepime and fluconazole for now. Currently on: Status: Acute (2) Sepsis: Sepsis secondary to obstructive pyelonephritis. Antibiotic as above Status: Acute (3) RAI (acute kidney injury): RAI: Secondary to obstructive uropathy, sepsis, as well as prerenal RAI secondary to dehydration. Baseline serum creatinine: 0.8-1 Current serum creatinine:1.1 Need to monitor BMP Avoid nephrotoxic Continue IV hydration Monitor intake output charting Status: Acute (4) Atrial fibrillation: Cardizem tuned off On Sotalol and digoxin serum digoxin level : Normal Anticoagulation on hold, due to concern for hematuria, as well as melanotic stool. Monitor H&H FOBT Status: Acute (5) Obstructive pyelonephritis: S/p stent placement Status: Acute (6) Left ureteral calculus: Status: Acute (7) Kidney stone on left side: Status: Acute (8) Diabetic foot ulcer: Status: Acute (9) 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 mellitus: Status: Acute (10) Anticoagulation adequate with anticoagulant therapy: Status: Acute (11) Dehydration: Status: Acute (12) Hypernatremia: Status: Acute Additional A&P Information PLAN:- S/p stent placement UC+ marci BC+ prelim GNR On cefepime Wbc trending down afebirle Dehydration on bipap on and off since admission dec input dec fluid intake today he is asking for water having dysphagia diet Speech eval needed one more time Recheck Na level Type 2 DM DKA resolved Hyperglycemia High SSI and inc lantus continue d5 for now and monitor BG Afib rbr melanotic stool h&H stilghly low Bp stable Full code SPeech eval needed Attestations Medical Necessity Statement*: Patient is to be in hospital for management of sepsis. Coding Level of Care Code Acute Box Office Clerk for Chg Fwd Exam Detailed Diagnoses Acute encephalopathy G93.40 Sepsis A41.9 RAI (acute kidney injury) N17.9 Atrial fibrillation I48.91 Obstructive pyelonephritis N11.1 Left ureteral calculus N20.1 Kidney stone on left side N20.0 Diabetic foot ulcer E11.621; L97.509 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 mellitus E11.40 Anticoagulation adequate with anticoagulant therapy Z79.01 Dehydration E86.0 Hypernatremia E87.0
--- NOTE | 2021-10-09 15:52 | PM.PN ---
Subjective Subjective: Interval history: UROLOGY follow-up: Have followed the chart since intervention on admission. Clearly much better now. Introduced myself to him and reviewed the findings intraoperatively of the stone and the infection. Also reviewed the importance of follow-up since he has a stent in place and the stone will need to be definitively treated with either ESWL or endoscopy. Will need to make plans for him at discharge for follow-up on outpatient basis to assess for readiness to undergo a second procedure to treat the stone. Vitals/I&O/Wt Last Vital Signs Temp 98 F 10/09/21 11:56 Pulse 89 10/09/21 11:56 Resp 16 10/09/21 11:56 BP 122/83 10/09/21 11:56 Pulse Ox 96 10/09/21 11:56 10/09/21 10/09/21 10/09/21 06:59 14:59 22:59 Intake Total 1306.667 / 1306.667 100 / 1406.667 Output Total 800 / 1700 Balance -800 / 515 1306.667 / 1306.667 100 / 1406.667 Physical Exam Narrative: EXAM NARRATIVE: Alert. Appropriate. Cooperative No acute distress. Abdomen is soft without bloating. No labored respiration. Still seems to be a little confused but much better. Urinary Catheter Management^: Villanueva: Cath Placed During This Visit: yes, but has since been removed by the nurse Urinary Catheter Date of Insertion: 10/03/21 Urinary Catheter Time of Insertion: 12:00 Date Urinary Catheter Removed: 10/03/21 Time Urinary Catheter Discontinued: 14:15 Villanueva Latex: Cath Placed During This Visit: yes Reason for Continuing Indwelling Catheter: Other Urinary Catheter Date of Insertion: 10/03/21 Urinary Catheter Time of Insertion: 14:44 Data : 10/09/21 04:38 10/09/21 04:38 Micro: Microbiology 10/03/21 Unknown Blood Culture - Preliminary Blood 10/03/21 10:46 Blood Culture - Final Blood NO GROWTH AFTER 5 DAYS A&P Assessment and plan (1) Left ureteral calculus: Status: Acute (2) Obstructive pyelonephritis: Status: Acute (3) Retained ureteral stent: Status: Acute (4) Sepsis: Status: Acute Attestations Medical Necessity Statement*: See attending Coding Level of Care Code Acute Middle School Music Teacher for Chg Fwd Diagnoses Left ureteral calculus N20.1 Obstructive pyelonephritis N11.1 Retained ureteral stent Z96.0 Sepsis A41.9
[2021-10-09] MEDS: tamsulosin 0.4 mg Capsule PO (17:25)
[2021-10-09 17:26] LABS: Glucose Point of Care 152 mg/dL (70-110)
[2021-10-09 20:03] LABS: Glucose Point of Care 139 mg/dL (70-110)
[2021-10-10 03:46] VITALS: BP 121/74; PULSE 96; RESP 20; TEMP 36.5; O2SAT 96
[2021-10-10 06:40] LABS: Glucose Point of Care 181 mg/dL (70-110)
[2021-10-10 07:22] LABS: Basophils # 0.1 10^3/uL (0.0-0.1); Basophils % 0.6 %; Eosinophils # 0.6 10^3/uL (0.0-0.8); Eosinophils % 3.8 %; Hematocrit 28.9 % (42.0-52.0); Hemoglobin 8.9 g/dL (11.7-16.6); Lymphocytes # 3.2 10^3/uL (0.8-4.8); Lymphocytes % 20.3 %; Mean Corpuscular HGB Conc 30.8 g/dL (30.0-36.0); Mean Corpuscular Hemoglobin 30.3 pg (28.0-34.0); Mean Corpuscular Volume 98.3 fl (80-94); Mean Platelet Volume 10.1 fL (7.4-10.4); Monocytes # 0.8 10^3/uL (0.2-0.9); Monocytes % 5.3 %; Neutrophils # 10.81 10^3/uL (1.8-7.7); Neutrophils % 68.5 %; Nucleated Red Blood Cells % 0 %; Platelet Count 449 10^3/cmm (130-400); Red Blood Count 2.94 10^6/uL (4.1-5.3); Red Cell Distribution Width 14.9 % (12.1-15.1); White Blood Count 15.8 10^3/uL (4.0-10.0)
[2021-10-10 07:35] LABS: Alanine Aminotransferase 20 U/L (0-41); Albumin Level 2.5 g/dL (3.5-5.2); Alkaline Phosphatase 77 IU/L (40-130); Anion Gap 16.7 (5-19); Aspartate Amino Transferase 12 U/L (0-40); Blood Urea Nitrogen 17 mg/dL (8-23); Calcium 7.6 mg/dL (8.5-10.5); Carbon Dioxide 20 mmol/L (22-29); Chloride 109 mmol/L (98-107); Glucose 188 mg/dL (65-115); Osmolality Calculated 301 mOsm/kg (285-295); Potassium 3.7 mmol/L (3.5-5.1); Sodium 142 mmol/L (136-145); Total Bilirubin 0.2 mg/dL (0.15-1.2); Total Protein 5.5 g/dL (6.6-8.7)
[2021-10-10 07:50] VITALS: BP 156/82; PULSE 84; RESP 18; TEMP 36.3; O2SAT 98
[2021-10-10 07:54] VITALS: PULSE 75; RESP 18; O2SAT 96
[2021-10-10] MEDS: sennosides-docusate Tablet 1 TAB PO (08:22)
[2021-10-10] MEDS: cefepime 2,000 MG in sodium chloride 0.9% (plus) 50 ML 100 MG IV ×2 (08:22→19:37)
[2021-10-10] MEDS: digoxin 250 mcg Tablet PO (08:22)
[2021-10-10] MEDS: amlodipine 5 mg Tablet PO (08:30)
[2021-10-10] MEDS: sotalol 80 mg Tablet PO ×2 (08:31→17:22)
[2021-10-10] MEDS: insulin lispro 100 unit/1 mL SUBCUT ×3 (08:40→17:22)
[2021-10-10] MEDS: insulin glargine 100 units/1 mL 25 UNIT SUBCUT (08:42)
[2021-10-10] MEDS: fluconazole premix 200 MG/100 ML PREMIX 100 MG IV (10:06)
[2021-10-10 11:03] LABS: Glucose Point of Care 301 mg/dL (70-110)
[2021-10-10 11:52] VITALS: BP 142/86; PULSE 78; RESP 18; TEMP 36.4; O2SAT 98
[2021-10-10] MEDS: pantoprazole 40 mg SDV IVP ×2 (12:33→22:07)
[2021-10-10 15:47] VITALS: BP 146/89; PULSE 76; RESP 18; TEMP 36.3; O2SAT 99
--- NOTE | 2021-10-10 15:55 | PC.SOCIAL ---
IMM update IMM updated with patient. Verbalized an understanding. Copy Pg 2 provided. Initialled, dated, timed, and placed in chart.
[2021-10-10 17:09] LABS: Glucose Point of Care 189 mg/dL (70-110)
[2021-10-10] MEDS: tamsulosin 0.4 mg Capsule PO (17:22)
[2021-10-10] MEDS: collagenase oint 30 gm 1 APPLIC TOPICAL (17:26)
--- NOTE | 2021-10-10 19:04 | PM.PN ---
Subjective Subjective: Interval history: Patient was seen and examined this morning,Hb has trended down to 8.9, patient is also complaining of dark stool, FOBT is pending, will continue to hold anticoagulation. WBC count is slowly improving. Medications: Medication Review Details: Generic Name Dose Route Start Last Admin Trade Name Freq PRN Reason Stop Dose Admin Acetaminophen 500 mg 10/03/21 12:47 10/07/21 10:40 Acetaminophen 50 0 Mg Tablet PO 500 mg Q4H PRN Administration fever/pain Amlodipine Besylat e 5 mg 10/05/21 09:00 10/07/21 08:15 Amlodipine 5 Mg Tablet PO 5 mg DAILY ROSALBA Administration Digoxin 250 mcg 10/05/21 09:00 10/07/21 08:15 Digoxin 250 Mcg Tablet PO 250 mcg DAILY ROSALBA Administration Cefepime HCl 2,000 mg/ Sodium 50 mls @ 100 mls/ hr 10/05/21 07:45 10/07/21 09:15 Chloride IV Infused Q24H ROSALBA Infusion Protocol Fluconazole 200 mg in 100 mls @ 100 mls/hr 10/05/21 11:15 10/07/21 10:40 Diflucan Premix IV 100 mls/hr Q24H ROSALBA Administration Diltiazem HCl 125 mg/ Sodium 125 mls @ 0 mls/h r 10/06/21 05:45 10/07/21 09:16 Chloride IV Infused .Q0M ROSALBA Titration Protocol Per Protocol Dextrose 1,000 mls @ 75 ml s/hr 10/06/21 16:45 10/07/21 12:34 D5w IV 75 mls/hr .[id number] ROSALBA Administration Insulin Glargine 25 unit 10/07/21 09:00 10/07/21 09:17 Insulin Glargine 100 Units/1 Ml SUBCUT 25 unit DAILY ROSALBA Administration Insulin Human Lisp ro 0 unit 10/06/21 08:00 10/07/21 12:34 Insulin Lispro 1 00 Unit/1 Ml SUBCUT 16 unit WM&BEDTIME ROSALBA Administration Protocol Metoprolol Tartrat e 5 mg 10/05/21 21:02 10/06/21 03:12 Metoprolol Tartr ate 1 Mg/1 Ml Sdv 5 Ml IVP 5 mg Q4H PRN Administration tachycardia >140 Pantoprazole Sodiu m 40 mg 10/05/21 23:00 10/07/21 10:39 Pantoprazole 40 Mg Sdv IVP 40 mg Q12H ROSALBA Administration Rivaroxaban 20 mg 10/04/21 11:00 10/05/21 10:55 Rivaroxaban 10 M g Tablet PO Not Given DAILY [facility] Senna/Docusate Sod ium 1 tab 10/04/21 09:00 10/07/21 08:18 Sennosides-Docus ate Tablet PO Not Given DAILY [facility] Sotalol HCl 80 mg 10/05/21 07:40 10/07/21 08:15 Sotalol 80 Mg Ta blet PO 80 mg BID ROSALBA Administration Tamsulosin HCl 0.4 mg 10/05/21 18:00 10/06/21 17:32 Tamsulosin 0.4 M g Capsule PO 0.4 mg QPM ROSALBA Administration Vitals/I&O/Wt Last Vital Signs Temp 97.4 F L 10/10/21 15:47 Pulse 76 10/10/21 15:47 Resp 18 10/10/21 15:47 BP 146/89 10/10/21 15:47 Pulse Ox 99 10/10/21 15:47 10/10/21 10/10/21 10/10/21 06:59 14:59 22:59 Intake Total 100 / 1556.667 240 / 240 150 / 390 Output Total 750 / 1750 1100 / 1100 Balance -650 / -193.333 240 / 240 -950 / -710 Weight last 48 hrs Weight 101.106 kg Physical Exam Const: COMMON NORMALS: patient oriented x3 HENMT: COMMON NORMALS: normocephalic and atraumatic HEAD & SCALP: normocephalic and atraumatic Resp: COMMON NORMALS: clear to auscultation bilaterally AUSCULTATION: clear to auscultation bilaterally Cardio: COMMON NORMALS: regular rate, regular rhythm, S1 normal heart sound present, S2 normal heart sound present, No gallops present (Cardio), No murmurs present (Cardio), No rub (Cardio) and Peripheral pulses 2+ throughout RATE: regular rate RHYTHM: regular rhythm HEART SOUNDS: S1 normal heart sound present and S2 normal heart sound present PERIPHERAL PULSES: Peripheral pulses 2+ throughout GI: COMMON NORMALS: Normal to inspection, nondistended, normoactive bowel sounds present, Soft to palpation, non-tender, No hepatosplenomegaly present and no masses AUSCULTATION: Yes normoactive bowel sounds PALPATION: Yes Soft to palpation and Yes No hepatosplenomegaly present RECTAL EXAM: Yes deferred Extremity: COMMON NORMALS: no clubbing, cyanosis or edema and no pedal edema Neuro: COMMON NORMALS: patient oriented x3 Urinary Catheter Management^: Villanueva: Cath Placed During This Visit: yes, but has since been removed by the nurse Urinary Catheter Date of Insertion: 10/03/21 Urinary Catheter Time of Insertion: 12:00 Date Urinary Catheter Removed: 10/03/21 Time Urinary Catheter Discontinued: 14:15 Villanueva Latex: Cath Placed During This Visit: yes Reason for Continuing Indwelling Catheter: Acute Urinary Retention or Obstruction Urinary Catheter Date of Insertion: 10/03/21 Urinary Catheter Time of Insertion: 14:44 Data : 10/10/21 07:05 10/10/21 07:05 A&P Assessment and plan (1) Acute encephalopathy: Acute metabolic encephalopathy: Secondary to sepsis and DKA: Resolved CT head without contrast: No acute intracranial pathology CT head and neck: No flow-limiting stenosis. DKA has resolved. Urine culture: Carolyn tropicalis Blood culture:10/07:GNR Repeat blood culture:NTD Xray chest: Minimal basilar patchy opacities CT abdomen and pelvis:persistent left renal nephrogram with high-grade obstruction from the 6.4 mm proximal ureteral calculus. Mild ureterectasis and mild hydronephrosis. Striated nephrogram compatible with pyelonephritis. No hydronephrosis in right kidney. Procalcitonin:0.42 Continue cefepime and fluconazole for now. Will complete 7-10 -days course of antibiotics and then discontinue. Status: Acute (2) Sepsis: Sepsis secondary to obstructive pyelonephritis. Antibiotic as above Status: Acute (3) RAI (acute kidney injury): RAI: Secondary to obstructive uropathy, sepsis, as well as prerenal RAI secondary to dehydration. Baseline serum creatinine: 0.8-1 Current serum creatinine:1.1 Need to monitor BMP Avoid nephrotoxic Continue IV hydration Monitor intake output charting Status: Acute (4) Atrial fibrillation: Cardizem tuned off On Sotalol and digoxin serum digoxin level : Normal Anticoagulation on hold Monitor H&H Status: Acute (5) Anemia: Currently hemoglobin is trending down, there is concern for possible GI bleed. As the patient is complaining of black stool. FOBT Continue to monitor H&H Continue to hold anticoagulation Patient may need EGD Status: Acute (6) Obstructive pyelonephritis: S/p stent placement Status: Acute (7) Left ureteral calculus: Status: Acute (8) Kidney stone on left side: Status: Inactive (9) Diabetic foot ulcer: Status: Acute (10) 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 mellitus: Status: Acute (11) Anticoagulation adequate with anticoagulant therapy: Status: Acute (12) Dehydration: Status: Acute (13) Hypernatremia: Status: Acute Additional A&P Information PLAN:- S/p stent placement UC+ carolyn BC+ prelim GNR On cefepime Wbc trending down afebirle Dehydration on bipap on and off since admission dec input dec fluid intake today he is asking for water having dysphagia diet Speech eval needed one more time Recheck Na level Type 2 DM DKA resolved Hyperglycemia High SSI and inc lantus continue d5 for now and monitor BG Afib rbr melanotic stool h&H stilghly low Bp stable Full code SPeech eval needed Attestations Medical Necessity Statement*: For management of sepsis, waiting mcfp placement. Coding Level of Care Code Acute Java Developer Architect for Chg Fwd Diagnoses Acute encephalopathy G93.40 Sepsis A41.9 RAI (acute kidney injury) N17.9 Atrial fibrillation I48.91 Anemia D64.9 Obstructive pyelonephritis N11.1 Left ureteral calculus N20.1 Kidney stone on left side N20.0 Diabetic foot ulcer E11.621; L97.509 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 mellitus E11.40 Anticoagulation adequate with anticoagulant therapy Z79.01 Dehydration E86.0 Hypernatremia E87.0
[2021-10-10 20:00] VITALS: BP 126/72; PULSE 74; RESP 19; TEMP 37; O2SAT 97
[2021-10-10 21:08] LABS: Glucose Point of Care 148 mg/dL (70-110)
[2021-10-11] VITALS (7 sets, daily range): BP systolic 118–133; BP diastolic 64–79; PULSE 74–103; RESP 16–18; TEMP 36.5–36.9; O2SAT 94–97
[2021-10-11 07:04] LABS: Basophils # 0.1 10^3/uL (0.0-0.1); Basophils % 0.6 %; Eosinophils # 0.5 10^3/uL (0.0-0.8); Eosinophils % 3.3 %; Hematocrit 27.9 % (42.0-52.0); Hemoglobin 8.9 g/dL (11.7-16.6); Lymphocytes # 3.1 10^3/uL (0.8-4.8); Lymphocytes % 18.4 %; Mean Corpuscular HGB Conc 31.9 g/dL (30.0-36.0); Mean Corpuscular Hemoglobin 30.6 pg (28.0-34.0); Mean Corpuscular Volume 95.9 fl (80-94); Mean Platelet Volume 10.2 fL (7.4-10.4); Monocytes # 0.7 10^3/uL (0.2-0.9); Monocytes % 4.5 %; Neutrophils # 11.94 10^3/uL (1.8-7.7); Neutrophils % 71.9 %; Nucleated Red Blood Cells % 0 %; Platelet Count 462 10^3/cmm (130-400); Red Blood Count 2.91 10^6/uL (4.1-5.3); White Blood Count 16.6 10^3/uL (4.0-10.0)
[2021-10-11 07:22] LABS: Anion Gap 16.5 (5-19); Blood Urea Nitrogen 18 mg/dL (8-23); Calcium 8.5 mg/dL (8.5-10.5); Carbon Dioxide 18 mmol/L (22-29); Chloride 110 mmol/L (98-107); Glucose 160 mg/dL (65-115); Osmolality Calculated 297 mOsm/kg (285-295); Potassium 3.5 mmol/L (3.5-5.1); Sodium 141 mmol/L (136-145)
[2021-10-11 07:45] LABS: Glucose Point of Care 169 mg/dL (70-110)
[2021-10-11] MEDS: sennosides-docusate Tablet 1 TAB PO (08:06)
[2021-10-11] MEDS: sotalol 80 mg Tablet PO ×2 (08:06→17:08)
[2021-10-11] MEDS: digoxin 250 mcg Tablet PO (08:06)
[2021-10-11] MEDS: amlodipine 5 mg Tablet PO (08:06)
[2021-10-11] MEDS: cefepime 2,000 MG in sodium chloride 0.9% (plus) 50 ML 100 MG IV ×2 (08:07→21:30)
[2021-10-11] MEDS: collagenase oint 30 gm 1 APPLIC TOPICAL (08:12)
[2021-10-11] MEDS: insulin glargine 100 units/1 mL 25 UNIT SUBCUT (08:26)
[2021-10-11] MEDS: insulin lispro 100 unit/1 mL SUBCUT ×3 (08:26→17:08)
[2021-10-11 11:05] LABS: Glucose Point of Care 216 mg/dL (70-110)
[2021-10-11] MEDS: fluconazole premix 200 MG/100 ML PREMIX 100 MG IV (11:14)
[2021-10-11] MEDS: pantoprazole 40 mg SDV IVP ×2 (11:15→23:05)
--- NOTE | 2021-10-11 16:24 | P.PN_ITS ---
Subjective Subjective: Interval history: Patient was seen and examined this morning,Hb has remained stable at 8.9,deny any other complain. His vitals and labs have been reviewed. WBC has persistently remained elevated.Currently patient has been afebrile and hemodynamically stable. Medications: Medication Review Details: Generic Name Dose Route Start Last Admin Trade Name Janq PRN Reason Stop Dose Admin Acetaminophen 500 mg 10/03/21 12:47 10/07/21 10:40 Acetaminophen 50 0 Mg Tablet PO 500 mg Q4H PRN Administration fever/pain Amlodipine Besylat e 5 mg 10/05/21 09:00 10/07/21 08:15 Amlodipine 5 Mg Tablet PO 5 mg DAILY ROSALBA Administration Digoxin 250 mcg 10/05/21 09:00 10/07/21 08:15 Digoxin 250 Mcg Tablet PO 250 mcg DAILY ROSALBA Administration Cefepime HCl 2,000 mg/ Sodium 50 mls @ 100 mls/ hr 10/05/21 07:45 10/07/21 09:15 Chloride IV Infused Q24H ROSALBA Infusion Protocol Fluconazole 200 mg in 100 mls @ 100 mls/hr 10/05/21 11:15 10/07/21 10:40 Diflucan Premix IV 100 mls/hr Q24H ROSALBA Administration Diltiazem HCl 125 mg/ Sodium 125 mls @ 0 mls/h r 10/06/21 05:45 10/07/21 09:16 Chloride IV Infused .Q0M ROSALBA Titration Protocol Per Protocol Dextrose 1,000 mls @ 75 ml s/hr 10/06/21 16:45 10/07/21 12:34 D5w IV 75 mls/hr .[id number] ROSALBA Administration Insulin Glargine 25 unit 10/07/21 09:00 10/07/21 09:17 Insulin Glargine 100 Units/1 Ml SUBCUT 25 unit DAILY ROSALBA Administration Insulin Human Lisp ro 0 unit 10/06/21 08:00 10/07/21 12:34 Insulin Lispro 1 00 Unit/1 Ml SUBCUT 16 unit WM&BEDTIME ROSALBA Administration Protocol Metoprolol Tartrat e 5 mg 10/05/21 21:02 10/06/21 03:12 Metoprolol Tartr ate 1 Mg/1 Ml Sdv 5 Ml IVP 5 mg Q4H PRN Administration tachycardia >140 Pantoprazole Sodiu m 40 mg 10/05/21 23:00 10/07/21 10:39 Pantoprazole 40 Mg Sdv IVP 40 mg Q12H ROSALBA Administration Rivaroxaban 20 mg 10/04/21 11:00 10/05/21 10:55 Rivaroxaban 10 M g Tablet PO Not Given DAILY [facility] Senna/Docusate Sod ium 1 tab 10/04/21 09:00 10/07/21 08:18 Sennosides-Docus ate Tablet PO Not Given DAILY ROSALBA Sotalol HCl 80 mg 10/05/21 07:40 10/07/21 08:15 Sotalol 80 Mg Ta blet PO 80 mg BID ROSALBA Administration Tamsulosin HCl 0.4 mg 10/05/21 18:00 10/06/21 17:32 Tamsulosin 0.4 M g Capsule PO 0.4 mg QPM ROSALBA Administration Vitals/I&O/Wt Last Vital Signs Temp 98.4 F 10/11/21 16:00 Pulse 76 10/11/21 16:00 Resp 18 10/11/21 16:00 BP 118/65 10/11/21 16:00 Pulse Ox 94 10/11/21 16:00 10/11/21 10/11/21 10/11/21 06:59 14:59 22:59 Intake Total 600 / 600 Balance 600 / 600 Weight last 48 hrs Weight 101.106 kg Physical Exam Const: COMMON NORMALS: patient oriented x3 HENMT: COMMON NORMALS: normocephalic and atraumatic HEAD & SCALP: normocephalic and atraumatic Resp: COMMON NORMALS: clear to auscultation bilaterally AUSCULTATION: clear to auscultation bilaterally Cardio: COMMON NORMALS: regular rate, regular rhythm, S1 normal heart sound present, S2 normal heart sound present, No gallops present (Cardio), No murmurs present (Cardio), No rub (Cardio) and Peripheral pulses 2+ throughout RATE: regular rate RHYTHM: regular rhythm HEART SOUNDS: S1 normal heart sound present and S2 normal heart sound present PERIPHERAL PULSES: Peripheral pulses 2+ throughout GI: COMMON NORMALS: Normal to inspection, nondistended, normoactive bowel sounds present, Soft to palpation, non-tender, No hepatosplenomegaly present and no masses AUSCULTATION: Yes normoactive bowel sounds PALPATION: Yes Soft to palpation and Yes No hepatosplenomegaly present RECTAL EXAM: Yes deferred Extremity: COMMON NORMALS: no clubbing, cyanosis or edema and no pedal edema Neuro: COMMON NORMALS: patient oriented x3 Urinary Catheter Management^: Villanueva: Cath Placed During This Visit: yes, but has since been removed by the nurse Urinary Catheter Date of Insertion: 10/03/21 Urinary Catheter Time of Insertion: 12:00 Date Urinary Catheter Removed: 10/03/21 Time Urinary Catheter Discontinued: 14:15 Villanueva Latex: Cath Placed During This Visit: yes Reason for Continuing Indwelling Catheter: Other Urinary Catheter Date of Insertion: 10/03/21 Urinary Catheter Time of Insertion: 14:44 Data : 10/11/21 06:36 10/11/21 06:36 Micro: Microbiology 10/06/21 02:26 Blood Culture - Final Blood NO GROWTH AFTER 5 DAYS 10/06/21 02:26 Blood Culture - Final Blood NO GROWTH AFTER 5 DAYS A&P Assessment and plan (1) Acute encephalopathy: Acute metabolic encephalopathy: Secondary to sepsis and DKA: Resolved CT head without contrast: No acute intracranial pathology CT head and neck: No flow-limiting stenosis. DKA has resolved. Urine culture: Marci tropicalis Blood culture:10/07:GNR Repeat blood culture:NTD Xray chest: Minimal basilar patchy opacities CT abdomen and pelvis:persistent left renal nephrogram with high-grade obstruction from the 6.4 mm proximal ureteral calculus. Mild ureterectasis and mild hydronephrosis. Striated nephrogram compatible with pyelonephritis. No hydronephrosis in right kidney. Procalcitonin:0.42 Continue cefepime and fluconazole for now. Will complete 7-10 -days course of antibiotics and then discontinue. Status: Acute (2) Sepsis: Sepsis secondary to obstructive pyelonephritis. Antibiotic as above Status: Acute (3) RAI (acute kidney injury): RAI: Secondary to obstructive uropathy, sepsis, as well as prerenal RAI secondary to dehydration. Baseline serum creatinine: 0.8-1 Current serum creatinine:1.1 Need to monitor BMP Avoid nephrotoxic Continue IV hydration Monitor intake output charting Status: Acute (4) Atrial fibrillation: Cardizem tuned off On Sotalol and digoxin serum digoxin level : Normal Anticoagulation on hold Monitor H&H Status: Acute (5) Anemia: Currently hemoglobin is trending down, there is concern for possible GI bleed. As the patient is complaining of black stool. Given that H& H has been around 9. Wll resume xaralto and Continue to monitor H&H. Pending FOBT Patient may need EGD if h&h drops. Status: Acute (6) Obstructive pyelonephritis: S/p stent placement Status: Acute (7) Left ureteral calculus: Status: Acute (8) Kidney stone on left side: Status: Inactive (9) Diabetic foot ulcer: Status: Acute (10) 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 mellitus: Status: Acute (11) Anticoagulation adequate with anticoagulant therapy: Status: Acute (12) Dehydration: Status: Acute (13) Hypernatremia: Status: Acute Additional A&P Information PLAN:- S/p stent placement UC+ marci BC+ prelim GNR On cefepime Wbc trending down afebirle Dehydration on bipap on and off since admission dec input dec fluid intake today he is asking for water having dysphagia diet Speech eval needed one more time Recheck Na level Type 2 DM DKA resolved Hyperglycemia High SSI and inc lantus continue d5 for now and monitor BG Afib rbr melanotic stool h&H stilghly low Bp stable Full code SPeech eval needed Attestations Medical Necessity Statement*: Patient needs to be in hospital for the management of sepsis. anemia. Coding Level of Care Code Acute Public Speaking Instructor for Chg Fwd Exam Detailed Diagnoses Acute encephalopathy G93.40 Sepsis A41.9 RAI (acute kidney injury) N17.9 Atrial fibrillation I48.91 Anemia D64.9 Obstructive pyelonephritis N11.1 Left ureteral calculus N20.1 Kidney stone on left side N20.0 Diabetic foot ulcer E11.621; L97.509 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 mellitus E11.40 Anticoagulation adequate with anticoagulant therapy Z79.01 Dehydration E86.0 Hypernatremia E87.0
[2021-10-11 16:30] LABS: Adenovirus Not Detected (NOT DETECT); Chlamydia Pneumoniae Not Detected (NOT DETECT); Coronavirus 229E,HKU1,NL63,OC4 Not Detected (NOT DETECT); Human Metapneumovirus Not Detected (NOT DETECT); Human Rhinovirus/Enterovirus Not Detected (NOT DETECT); Influenza A Not Detected (NOT DETECT); Influenza A H1 Not Detected (NOT DETECT); Influenza A H1-2009 Not Detected (NOT DETECT); Influenza A H3 Not Detected (NOT DETECT); Influenza B Not Detected (NOT DETECT); Mycoplasma Pneumoniae Not Detected (NOT DETECT); Parainfluenza Virus Type 1 Not Detected (NOT DETECT); Parainfluenza Virus Type 2 Not Detected (NOT DETECT); Parainfluenza Virus Type 3 Not Detected (NOT DETECT); Parainfluenza Virus Type 4 Not Detected (NOT DETECT); Respiratory Syncytial Virus A Not Detected (NOT DETECT); Respiratory Syncytial Virus B Not Detected (NOT DETECT); SARS-COV-2 Not Detected (NOT DETECT)
[2021-10-11 17:00] LABS: Glucose Point of Care 180 mg/dL (70-110)
[2021-10-11] MEDS: tamsulosin 0.4 mg Capsule PO (17:08)
[2021-10-11] MEDS: rivaroxaban 10 mg Tablet 20 MG PO (17:08)
[2021-10-11 21:24] LABS: Glucose Point of Care 141 mg/dL (70-110)
[2021-10-12] VITALS: BP 113/78; PULSE 80; RESP 18; TEMP 36.6; O2SAT 97
[2021-10-12 03:37] VITALS: BP 122/76; PULSE 78; RESP 20; TEMP 36.6; O2SAT 97
[2021-10-12 06:04] LABS: Basophils # 0.1 10^3/uL (0.0-0.1); Basophils % 0.3 %; Eosinophils # 0.4 10^3/uL (0.0-0.8); Eosinophils % 2.8 %; Hematocrit 25.3 % (42.0-52.0); Hemoglobin 8.3 g/dL (11.7-16.6); Lymphocytes # 2.7 10^3/uL (0.8-4.8); Lymphocytes % 17.7 %; Mean Corpuscular HGB Conc 32.8 g/dL (30.0-36.0); Mean Corpuscular Volume 94.4 fl (80-94); Mean Platelet Volume 10.4 fL (7.4-10.4); Monocytes # 0.9 10^3/uL (0.2-0.9); Monocytes % 6.1 %; Neutrophils # 10.79 10^3/uL (1.8-7.7); Neutrophils % 72.3 %; Nucleated Red Blood Cells % 0 %; Platelet Count 440 10^3/cmm (130-400); Red Blood Count 2.68 10^6/uL (4.1-5.3); Red Cell Distribution Width 15.3 % (12.1-15.1); White Blood Count 14.9 10^3/uL (4.0-10.0)
[2021-10-12 06:28] LABS: Anion Gap 16.5 (5-19); Blood Urea Nitrogen 16 mg/dL (8-23); Calcium 7.8 mg/dL (8.5-10.5); Carbon Dioxide 19 mmol/L (22-29); Chloride 110 mmol/L (98-107); Glucose 157 mg/dL (65-115); Osmolality Calculated 298 mOsm/kg (285-295); Potassium 3.5 mmol/L (3.5-5.1); Sodium 142 mmol/L (136-145)
[2021-10-12 08:00] VITALS: BP 126/72; PULSE 69; RESP 18; TEMP 36.8; O2SAT 96
[2021-10-12] MEDS: sennosides-docusate Tablet 1 TAB PO (08:39)
[2021-10-12] MEDS: digoxin 250 mcg Tablet PO (08:39)
[2021-10-12] MEDS: sotalol 80 mg Tablet PO (08:39)
[2021-10-12] MEDS: amlodipine 5 mg Tablet PO (08:39)
[2021-10-12] MEDS: cefepime 2,000 MG in sodium chloride 0.9% (plus) 50 ML 100 MG IV (08:39)
[2021-10-12 08:49] VITALS: PULSE 81; RESP 16; O2SAT 96
[2021-10-12] MEDS: insulin lispro 100 unit/1 mL SUBCUT (08:54)
[2021-10-12] MEDS: insulin glargine 100 units/1 mL 25 UNIT SUBCUT (08:55)
[2021-10-12] MEDS: collagenase oint 30 gm 1 APPLIC TOPICAL (08:56)
[2021-10-12] MEDS: rivaroxaban 10 mg Tablet 20 MG PO (09:55)
--- NOTE | 2021-10-12 11:25 | P.DS_ITS ---
Discharge Providers Date of Admission: 10/03/21 14:20 Date of Discharge: October 12, 2021 Attending Provider at Admission: Misael Paul MD Attending Provider at Discharge: Sarwat Lopez MD Primary Care Provider: Trisha Urena MD Diagnoses at Discharge Discharge Diagnosis (1) Acute encephalopathy: Status: Acute (2) Sepsis: Status: Acute (3) RAI (acute kidney injury): Status: Acute (4) Atrial fibrillation: Status: Acute (5) Anemia: Status: Acute (6) Obstructive pyelonephritis: Status: Acute (7) Left ureteral calculus: Status: Acute (8) Kidney stone on left side: Status: Inactive (9) Diabetic foot ulcer: Status: Acute (10) 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 mellitus: Status: Acute (11) Anticoagulation adequate with anticoagulant therapy: Status: Acute Permanent problem details: Xarelto (12) Dehydration: Status: Acute (13) Hypernatremia: Status: Acute Reason for Visit Reason for Visit: KIDNEY STONE, SOB, CONFUSION Hospital Course Hospital Course 71 year old male who has multiple comorbid conditions presented with chief complaint of not feeling well, upon further work-up he was admitted for the management of sepsis secondary to obstructive pyelonephritis, s/p Cystoscopy with left ureteral stent placement, during the hospital stay was also managed for acute metabolic encephalopathy secondary to sepsis DKA,CT head without contrast: No acute intracranial pathology, CT head and neck: No flow-limiting stenosis. CT abdomen and pelvis:persistent left renal nephrogram with high-grade obstruction from the 6.4 mm proximal ureteral calculus. Mild ureterectasis and mild hydronephrosis. Striated nephrogram compatible with pyelonephritis. No hydronephrosis in right kidney. Urine culture: Carolyn tropicalis , Blood culture:10/07:GNR , Repeat blood culture:NTD. Procalcitonin:0.42. He was kept on broad-spectrum antibiotics, and was discharged on levofloxacin p.o. for additional 7 days, as well as fluconazole 200 mg p.o. daily for additional 7 days.Hospital course was also complicated by development of RAI, secondary to obstructive uropathy as well as prerenal, responded well to IV hydration At the time of discharge serum creatinine was at baseline, he also went into A. fib with RVR during the hospital stay For which she was kept on initially Cardizem drip, but later he was transitioned to home sotalol and digoxin, Anticoagulation was briefly held during the hospital stay due to down trending hemoglobin, but was resumed on discharge, as FOBT was negative, hemoglobin on discharge was 8.3.He Will do repeat CBC in a week to monitor the hemoglobin closely, and if hemoglobin is low, he might need further work-up. Patient responded well to above medical management and is being discharged in stable condition to intermediate due to weakness and further recovery. Patient will continue to follow with Dr. Paul as an outpatient , will also follow-up with his PCP as well as Dr. Jose David Myers if needed for any EGD or colonoscopy. Physical Exam Const: COMMON NORMALS: patient oriented x3 HENMT: COMMON NORMALS: normocephalic and atraumatic HEAD & SCALP: normocephalic and atraumatic Resp: COMMON NORMALS: clear to auscultation bilaterally AUSCULTATION: clear to auscultation bilaterally Cardio: COMMON NORMALS: regular rate, regular rhythm, S1 normal heart sound present, S2 normal heart sound present, No gallops present (Cardio), No murmurs present (Cardio), No rub (Cardio) and Peripheral pulses 2+ throughout RATE: regular rate RHYTHM: regular rhythm HEART SOUNDS: S1 normal heart sound present and S2 normal heart sound present PERIPHERAL PULSES: Peripheral pulses 2+ throughout GI: COMMON NORMALS: Normal to inspection, nondistended, normoactive bowel sounds present, Soft to palpation, non-tender, No hepatosplenomegaly present and no masses AUSCULTATION: Yes normoactive bowel sounds PALPATION: Yes Soft to palpation and Yes No hepatosplenomegaly present RECTAL EXAM: Yes deferred Extremity: COMMON NORMALS: no clubbing, cyanosis or edema and no pedal edema Neuro: COMMON NORMALS: patient oriented x3 Urinary Catheter Management^: Villanueva: Cath Placed During This Visit: yes, but has since been removed by the nurse Urinary Catheter Date of Insertion: 10/03/21 Urinary Catheter Time of Insertion: 12:00 Date Urinary Catheter Removed: 10/03/21 Time Urinary Catheter Discontinued: 14:15 Villanueva Latex: Cath Placed During This Visit: yes Reason for Continuing Indwelling Catheter: Acute Urinary Retention or Obstruction Urinary Catheter Date of Insertion: 10/03/21 Urinary Catheter Time of Insertion: 14:44 Discharge Data Data Completed and Pending: Completed Studies During Hospitalization Category Date Time Status CT angio headneck * 96664/42677 Rout ine Cat Scan 10/05/21 18:[address] head wo con* 7 0450 Routine Cat Scan 10/05/21 11:[address] head wo con* 7 0450 Stat Cat Scan 10/03/21 10:[address] kidney stone 7 5859 Stat Cat Scan 10/03/21 10:35 Completed XR chest 1V johnathan ble 13351 Stat Exams 10/03/21 10:29 Completed Pending at discharge Category Date Time Status Basic Metabolic P lg AM LABS Lab 10/13/21 04:00 Ordered Blood Culture Sta t Lab 10/03/21 10:46 Results Complete Blood Co unt w/Auto AM LABS Lab 10/13/21 04:00 Ordered Immunochemical Fe natalia OCB Routine Lab 10/10/21 10:00 Uncollected Miscellaneous Larua t Routine Lab 10/09/21 08:00 Received Labs from last 24 hours 10/12/21 10/12/21 10/11/21 05:22 05:22 21:07 WBC 14.9 H RBC 2.68 L Hgb 8.3 L Hct 25.3 L MCV 94.4 H MCH 31.0 MCHC 32.8 RDW 15.3 H Plt Count 440 H MPV 10.4 Neut % (Auto) 72.3 Lymph % (Auto) 17.7 Stevens % (Auto) 6.1 Eos % (Auto) 2.8 Baso % (Auto) 0.3 Neut # (Auto) 10.79 H Lymph # (Auto) 2.7 Stevens # (Auto) 0.9 Eos # (Auto) 0.4 Baso # (Auto) 0.1 Nucleated RBC % (a uto) 0 Nucleated RBCs # 0.0 Sodium 142 Potassium 3.5 Chloride 110 H Carbon Dioxide 19 L Anion Gap 16.5 BUN 16 Creatinine 0.8 GFR Calculation Not Reportable Glucose 157 H POC Glucose 141 H Calculated Osmolal ity 298 H Calcium 7.8 L Coronavirus 229E ( PCR) SARS-CoV-2 (PCR) 10/11/21 10/11/21 16:56 14:20 WBC RBC Hgb Hct MCV MCH MCHC RDW Plt Count MPV Neut % (Auto) Lymph % (Auto) Stevens % (Auto) Eos % (Auto) Baso % (Auto) Neut # (Auto) Lymph # (Auto) Stevens # (Auto) Eos # (Auto) Baso # (Auto) Nucleated RBC % (a uto) Nucleated RBCs # Sodium Potassium Chloride Carbon Dioxide Anion Gap BUN Creatinine GFR Calculation Glucose POC Glucose 180 H Calculated Osmolal ity Calcium Coronavirus 229E ( PCR) Not detected SARS-CoV-2 (PCR) Not detected Vitals: Last Vital Signs Temp 98.2 F 10/12/21 08:00 Pulse 81 10/12/21 08:49 Resp 16 10/12/21 08:49 BP 126/72 10/12/21 08:00 Pulse Ox 96 10/12/21 08:49 Discharge Plan Discharge Patient Disposition: Home Condition: Stable Prescriptions: New levofloxacin 750 mg tablet 750 mg PO DAILY 7 Days Qty: 7 RF: 0 fluconazole 200 mg tablet 200 mg PO DAILY 7 Days Qty: 7 RF: 0 Continued omega-3 fatty acids [Fish Oil Concentrate] 1,000 mg capsule 1,000 mg PO TID RF: 0 digoxin 250 mcg (0.25 mg) tablet 250 mcg PO DAILY RF: 0 cholecalciferol (vitamin D3) [Vitamin D3] 25 mcg (1,000 unit) capsule 3,000 unit PO DAILY RF: 0 Xarelto 20 mg tablet 20 mg PO DAILY RF: 0 (DME) water aerobics See Rx Instructions .Route .MEDSUPPLY Qty: 1 RF: 0 sotalol 160 mg Tablet 80 mg PO BID RF: 0 gabapentin 800 mg Tablet 800 mg PO TID RF: 0 fluticasone propionate [Flonase Allergy Relief] 50 mcg/actuation Monon,Suspension 2 spray INTRANASAL DAILY PRN (Reason: Allergy Symptoms) RF: 0 rosuvastatin [Crestor] 40 mg Tablet 20 mg PO QPM RF: 0 amlodipine 5 mg tablet 5 mg PO DAILY RF: 0 sodium chloride 0.9 % solution See Rx Instructions .ROUTE .COMPLEX RF: 0 tamsulosin 0.4 mg capsule 0.4 mg PO QPM RF: 0 Wixela Inhub 100-50 mcg/dose Blister With Device 1 inh INHALATION BID RF: 0 ProAir HFA 90 mcg/actuation HFA aerosol inhaler 2 puff INHALATION Q4H PRN (Reason: Shortness Of Breath) RF: 0 lisinopril 40 mg tablet 40 mg PO QAM RF: 0 metformin 1,000 mg tablet 1,000 mg PO BID RF: 0 insulin aspart U-100 [Novolog Flexpen U-100 Insulin] 100 unit/mL (3 mL) insulin pen See Rx Instructions .ROUTE .COMPLEX Qty: 15 RF: 2 Lantus Solostar U-100 Insulin 100 unit/mL (3 mL) insulin pen 20 unit SUBCUT DAILY 30 Days Qty: 20 RF: 0 hydrocodone-acetaminophen 5-325 mg tablet 1 tab PO Q6H PRN (Reason: pain) Qty: 20 RF: 0 Held Lasix 20 mg tablet See Rx Instructions .ROUTE .COMPLEX RF: 0 Hold Instructions: Resume on 10/26/21. Discontinued ibuprofen 200 mg Tablet 600 mg PO Q4H PRN (Reason: Pain) RF: 0 Discharge Orders: Discharge Order (Routine); Ordered 10/12/21 Ordered By: Sarwat Lopez Other Ambulatory Orders: Complete Blood Count w/Auto (Routine) Timeframe: 1 Week Location: Determined by Patient Ordered By: Sarwat Lopez Referrals: Misael Paul MD [Physician] - 1 week Herman Myers MD [Physician] - 1 week Trisha Urena MD [Primary Care Provider] - 1 week Discharge Diet: Diabetic Discharge Activity: Increase activity as tolerated Patient Instructions: Fluconazole (By mouth), Levofloxacin (By mouth), Anemia (GEN), Opioid Safety Discharge Attestations Time Spent in Discharge Care*: less than 30 min Specific Discharge Activities: educating patient, educating and/or supporting family/caregiver, discussing with pcp/other providers, discussing with block and case maker/social workers/dc planners, documenting/other paperwork and evaluating patient/reviewing data Status at Discharge: Cognitive status at discharge: cognitively intact , Behavioral status at discharge: cooperative , Functional status at discharge: other assisted ambulation Overall status at discharge: patient is back to baseline Quality Metrics Clinical Quality Measures During this hospital stay, did patient experience: None Coding Level of Care Code Acute g FW DC note Exam Detailed Diagnoses Acute encephalopathy G93.40 Sepsis A41.9 RAI (acute kidney injury) N17.9 Atrial fibrillation I48.91 Anemia D64.9 Obstructive pyelonephritis N11.1 Left ureteral calculus N20.1 Kidney stone on left side N20.0 Diabetic foot ulcer E11.621; L97.509 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 mellitus E11.40 Anticoagulation adequate with anticoagulant therapy Z79.01 Dehydration E86.0 Hypernatremia E87.0
[2021-10-12 12:00] VITALS: BP 95/50; PULSE 80; RESP 18; TEMP 36.4; O2SAT 90
--- NOTE | 2021-10-12 13:07 | PC.SOCIAL ---
IMM update IMM updated with patient. Verbalized an understanding. Copy Pg 2 provided. Initialled, dated, timed, and placed in chart.
[2021-10-12 17:25] LABS: Glucose Point of Care 200 mg/dL (70-110)
[2021-10-12 17:25] LABS: Glucose Point of Care 270 mg/dL (70-110)
== END 2021-10-12 14:37 | disposition skilled nursing facility (03) | DRG 853 ==
LOC: ER 11:47 → OPS 12:07 → ICU 14:20 → MEDSURG 10-04 14:24 → ICU 10-05 12:53 → MEDSURG 10-08 10:01
PROVIDERS: Internal Medicine; Admitting Provider Urology; Emergency Provider Family Medicine; PCP Family Medicine; Visit Provider Internal Medicine
PROC: 0TJB8ZZ Inspection of Bladder, Via Natural or Artificial Opening Endoscopic (ICD-10-PCS; CPT 52000; principal; 2021-10-03 13:50)
PROC: 0T778DZ Dilation of Left Ureter with Intraluminal Device, Via Natural or Artificial Opening Endoscopic (ICD-10-PCS; CPT 50605; 2021-10-03 13:50)
DX: A41.9 Sepsis, unspecified organism (principal); E11.10 Type 2 diabetes mellitus with ketoacidosis without coma; G93.41 Metabolic encephalopathy; N20.2 Calculus of kidney with calculus of ureter; F05 Delirium due to known physiological condition; N17.9 Acute kidney failure, unspecified; B37.49 Other urogenital candidiasis; E87.0 Hyperosmolality and hypernatremia; K92.1 Melena; I48.91 Unspecified atrial fibrillation; Z79.01 Long term (current) use of anticoagulants; E11.42 Type 2 diabetes mellitus with diabetic polyneuropathy; Z85.46 Personal history of malignant neoplasm of prostate; I10 Essential (primary) hypertension; M54.50 Low back pain, unspecified; M48.062 Spinal stenosis, lumbar region with neurogenic claudication; G47.33 Obstructive sleep apnea (adult) (pediatric); E11.621 Type 2 diabetes mellitus with foot ulcer; L97.529 Non-pressure chronic ulcer of other part of left foot with unspecified severity; M54.2 Cervicalgia; Z79.4 Long term (current) use of insulin; Z79.84 Long term (current) use of oral hypoglycemic drugs; D64.9 Anemia, unspecified; E86.0 Dehydration
CPT/HCPCS: 36415; 36416; 36600; 51702; 70450; 70496; 70498; 71045; 74176; 76000; 80048; 80051; 80053; 80162; 81001; 82009; 82274; 82330; 82803; 82805; 82962; 83605; 83615; 83690; 83735; 83880; 84145; 84295; 84484; 85007; 85014; 85018; 85025; 86140; 87040; 87077; 87086; 87106; 87205; 87426; 87635; 92507; 92523; 92526; 92610; 93005; 94660; 96365; 96367; 96372; 96375; 97110; 97116; 97162; 97530; 99291; C2625; C9113; J0692; J0696; J1100; J1450; J1815 ×2; J2060; J2405; J2543; J2704; J3010; J3411; J3480; J3490; J7030; J7040; J7050; J7799; Q9967

== ENCOUNTER 2021-10-18 15:59 | Outpatient (CLI) | payer OTHER, MEDICARE, SELFPAY ==
[2021-10-18 16:59] LABS: Basophils # 0.1 10^3/uL (0.0-0.1); Basophils % 0.5 %; Eosinophils # 0.2 10^3/uL (0.0-0.8); Eosinophils % 2.1 %; Hematocrit 24.8 % (42.0-52.0); Hemoglobin 7.7 g/dL (11.7-16.6); Lymphocytes # 2.1 10^3/uL (0.8-4.8); Lymphocytes % 21.6 %; Mean Corpuscular Hemoglobin 29.5 pg (28.0-34.0); Mean Platelet Volume 11.1 fL (7.4-10.4); Monocytes # 0.7 10^3/uL (0.2-0.9); Monocytes % 6.9 %; Neutrophils # 6.73 10^3/uL (1.8-7.7); Neutrophils % 68.5 %; Nucleated Red Blood Cells % 0 %; Platelet Count 398 10^3/cmm (130-400); Red Blood Count 2.61 10^6/uL (4.1-5.3); Red Cell Distribution Width 15.5 % (12.1-15.1); White Blood Count 9.8 10^3/uL (4.0-10.0)
== END 2021-10-18 16:00 | disposition home or self-care (01) ==
LOC: LAB 16:03
PROVIDERS: PCP Family Medicine; Visit Provider Nurse Practitioner Family
DX: D64.9 Anemia, unspecified (principal)
CPT/HCPCS: 85025

== ENCOUNTER 2021-10-22 10:51 | Outpatient (CLI) | payer OTHER, MEDICARE, SELFPAY ==
[2021-10-22 11:12] LABS: Basophils # 0.1 10^3/uL (0.0-0.1); Basophils % 0.9 %; Eosinophils # 0.4 10^3/uL (0.0-0.8); Hematocrit 26.8 % (42.0-52.0); Hemoglobin 8.3 g/dL (11.7-16.6); Lymphocytes % 32.2 %; Mean Corpuscular Hemoglobin 29.4 pg (28.0-34.0); Mean Platelet Volume 11.6 fL (7.4-10.4); Monocytes # 0.7 10^3/uL (0.2-0.9); Monocytes % 7.2 %; Neutrophils # 5.21 10^3/uL (1.8-7.7); Neutrophils % 55.4 %; Nucleated Red Blood Cells % 0 %; Platelet Count 316 10^3/cmm (130-400); Red Blood Count 2.82 10^6/uL (4.1-5.3); White Blood Count 9.4 10^3/uL (4.0-10.0)
== END 2021-10-22 10:52 | disposition home or self-care (01) ==
LOC: LAB 10:53
PROVIDERS: PCP Family Medicine; Visit Provider Family Medicine
DX: D64.9 Anemia, unspecified (principal)
CPT/HCPCS: 85025

== ENCOUNTER → 2021-10-28 14:19 | Outpatient (BNVA) | payer OTHER, SELFPAY | PROVIDERS: PCP Family Medicine; Visit Provider Surgery | DX: D50.9 Iron deficiency anemia, unspecified (principal); Z20.822 Contact with and (suspected) exposure to COVID-19 | CPT/HCPCS: 87635 ==

== ENCOUNTER 2021-10-30 09:49 | Day surgery (SDC) | payer OTHER, SELFPAY ==
[2021-10-29 10:31] VITALS: BMI 16.9
--- NOTE | 2021-10-30 11:22 | ANES.PREANE2 ---
Pre-Anesthetic Assessment Height/Weight: Height 1.73 m Weight 50.349 kg Preop Diagnosis: diagnostic Operation Date: 10/30/21 11:00 Proposed Procedures p EGD 66813/57629(Not Applicable) - Herman Myers MD s Colonoscopy(Not Applicable) - Herman Myers MD Familial anesthetic complications: None Was Beta Carmelita taken within 24 hours: Yes Was Clonidine taken within 24 hours: N/A Social No alcohol and No tobacco Exam alert, oriented x 3, clear to auscultation bilaterally and regular rate & rhythm Airway Submandibular: within normal limits Cervical ROM: within normal limits Mallampati: Class I Dentition: chipped Pulmonary Exertional Dyspnea and Sleep Apnea CV/HEM Atrial Fibrillation, Anemia and Hypertension METS < 4 EKG 09/24 SINUS RHYTHM RIGHT BUNDLE BRANCH BLOCK? [120+ ms QRS DURATION, UPRIGHT V1, 40+ ms S IN I/aVL/V4/V5/V6] Compared to ECG 10/03/2021 12:37:03 No significant changes Electronically Signed On 10-03-2021 22:04:45 DYNAMIC ETCHING PROCESSOR by Aleks Narvaez M.D. [email or web address] 09/23 Stress test Conclusion: 1) Normal EKG response to Lexiscan infusion 2) No Lexiscan induced chest pain.? PVCs were noted during stress phase 3) Normal blood pressure and heart rate response 4) Sestamibi/sestamibi perfusion scan interpreted separately.? The separate report. Nephrolithiasis GI Gastroesophageal Reflux Disease Metabolic Diabetes Mellitus [facility] [place] Lower Back Pain Neuropsych None reported Anesthetic Plan ASA status: 3 (71 year old w/ recent GI bleed, anemia, atrial fibrillation w/ limited functional capacity. ) Anesthesia: Anesthesia Evaluation and MAC Other: I discussed with the patient risks, goals, and benefits of MAC and general anesthesia. We discussed spectrum of MAC anesthesia including conversion to general as well as possibility of recall of intraoperative stimuli including discomfort/pain. Patient agrees to proceed with MAC. Risk of > 500 ml blood loss (7ml/kg in children): No Medications/Allergies Home Medications Medication Instructions Recorded Confirmed Last Taken Type cholecalciferol (vitamin D3) 25 3,000 unit PO DAILY 11/07/19 10/29/21 03/19/21 History mcg (1,000 unit) capsule (Vitamin D3) digoxin 250 mcg (0.25 mg) tablet 250 mcg PO DAILY 11/07/19 10/29/21 03/19/21 History omega-3 fatty acids 1,000 mg 1,000 mg PO TID 11/07/19 10/29/21 03/19/21 History capsule (Fish Oil Concentrate) fluticasone propionate 50 2 spray INTRANASAL DAILY PRN 05/07/20 10/29/21 Unknown History mcg/actuation nasal spray,suspension (Flonase Allergy Relief) gabapentin 800 mg tablet 800 mg PO TID 05/07/20 10/29/21 10/03/21 History sotalol 160 mg tablet 80 mg PO BID 05/07/20 10/29/21 03/19/21 History water aerobics #1 ea 05/09/21 10/28/21 Unknown Rx metformin 1,000 mg tablet 1,000 mg PO BID 08/23/21 10/29/21 Unknown History insulin aspart U-100 100 unit/mL See Rx Instructions .ROUTE 08/30/21 10/29/21 10/03/21 09:00 Rx (3 mL) subcutaneous pen (Novolog .COMPLEX #15 ml 6 units Flexpen U-100 Insulin aspart) insulin glargine 100 unit/mL (3 20 unit (0.2 mL) SUBCUT DAILY 30 08/30/21 10/29/21 10/03/21 09:00 Rx mL) subcutaneous pen (Lantus Days #20 ml Solostar U-100 Insulin) hydrocodone 5 mg-acetaminophen 325 1 tab PO Q6H PRN #20 tab 10/02/21 10/29/21 Unknown Rx mg tablet albuterol sulfate 90 mcg/actuation 2 puff INHALATION Q4H PRN 10/03/21 10/29/21 Unknown History aerosol inhaler (ProAir HFA) amlodipine 5 mg tablet 5 mg PO DAILY 10/03/21 10/29/21 Unknown History fluticasone 100 mcg-salmeterol 50 1 inh INHALATION BID 10/03/21 10/29/21 Unknown History mcg/dose blistr powdr for inhalation (Wixela Inhub) lisinopril 40 mg tablet 40 mg PO QAM 10/03/21 10/29/21 Unknown History sodium chloride 0.9 % irrigation See Rx Instructions .ROUTE .COMPLEX 10/03/21 10/28/21 Unknown History solution tamsulosin 0.4 mg capsule 0.4 mg PO QPM 10/03/21 10/29/21 Unknown History acetaminophen 325 mg tablet 325 mg PO QID PRN 10/29/21 10/29/21 Unknown History (Tylenol) fluconazole 200 mg tablet 200 mg PO DAILY 10/29/21 10/29/21 Unknown History Allergies Allergy/AdvReac Type Severity Reaction Status Date / Time No Known Allergies Allergy Verified 10/29/21 10:20 [facility] Anesthesia Medical History (Updated 10/28/21 @ 13:50 by Herman Myers MD) Anticoagulation adequate with anticoagulant therapy Xarelto Atrial fibrillation Cervicalgia of odqzdsbn-[id number]-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, 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 mellitus H/O prostate cancer HTN (hypertension) Left ureteral calculus Lumbar stenosis Lumbar stenosis with neurogenic claudication Obstructive pyelonephritis Obstructive sleep apnea Refuses CPAP Surgical History (Updated 10/28/21 @ 13:50 by Herman Myers MD) History of back surgery History of colonoscopy History of pilonidal cyst S/P appendectomy S/P tonsillectomy Family History Grandmother Cancer MATERNAL Diabetes Grandfather Hypertension MATERNAL Diabetes Social History Smoking and tobacco status: never smoked Alcohol intake: never Marital status: service: Yes branch: [employer] 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
[2021-10-30 11:38] VITALS: BP 96/52; PULSE 62; RESP 16; TEMP 36.7; O2SAT 98
[2021-10-30] MEDS: sodium chloride 0.9% 1,000 ML 30 ML IV (11:48)
--- NOTE | 2021-10-30 12:37 | P.HP_ITS ---
Same Day Surgery H&P Indication for Procedure/HPI DATE OF PROCEDURE: October 30, 2021 CHIEF COMPLAINT/INDICATIONFOR SURGICAL PROCEDURE: egd/colonoscopy PREOP DIAGNOSIS: diagnostic PLANNED PROCEDURE: Operation Date: 10/30/21 11:00 Proposed Procedures p EGD [id number](Not Applicable) - Herman Myers MD s Colonoscopy(Not Applicable) - Herman Myers MD Medications/Allergies* Home Medications Medication Instructions Recorded Confirmed Type cholecalciferol (vitamin D3) 25 3,000 unit PO DAILY 11/07/19 10/29/21 History mcg (1,000 unit) capsule (Vitamin D3) digoxin 250 mcg (0.25 mg) tablet 250 mcg PO DAILY 11/07/19 10/29/21 History omega-3 fatty acids 1,000 mg 1,000 mg PO TID 11/07/19 10/29/21 History capsule (Fish Oil Concentrate) fluticasone propionate 50 2 spray INTRANASAL DAILY PRN 05/07/20 10/29/21 History mcg/actuation nasal spray,suspension (Flonase Allergy Relief) gabapentin 800 mg tablet 800 mg PO TID 05/07/20 10/29/21 History sotalol 160 mg tablet 80 mg PO BID 05/07/20 10/29/21 History metformin 1,000 mg tablet 1,000 mg PO BID 08/23/21 10/29/21 History albuterol sulfate 90 mcg/actuation 2 puff INHALATION Q4H PRN 10/03/21 10/29/21 History aerosol inhaler (ProAir HFA) amlodipine 5 mg tablet 5 mg PO DAILY 10/03/21 10/29/21 History fluticasone 100 mcg-salmeterol 50 1 inh INHALATION BID 10/03/21 10/29/21 History mcg/dose blistr powdr for inhalation (Wixela Inhub) lisinopril 40 mg tablet 40 mg PO QAM 10/03/21 10/29/21 History sodium chloride 0.9 % irrigation See Rx Instructions .ROUTE .COMPLEX 10/03/21 10/28/21 History solution tamsulosin 0.4 mg capsule 0.4 mg PO QPM 10/03/21 10/29/21 History acetaminophen 325 mg tablet 325 mg PO QID PRN 10/29/21 10/29/21 History (Tylenol) fluconazole 200 mg tablet 200 mg PO DAILY 10/29/21 10/29/21 History Allergies/Adverse Reactions Allergy/AdvReac Type Severity Reaction Status Date / Time No Known Allergies Allergy Verified 10/30/21 11:31 Current Medications: Generic Name Dose Route Start Last Admin Trade Name Tatyana PRN Reason Stop Dose Admin Sodium Chloride 1,000 mls @ 30 mls/hr 10/30/21 10:00 10/30/21 11:48 Sodium Chloride 0.9% IV 10/31/21 09:59 30 mls/hr .Q24H ROSALBA Administration Pertinent History/Comorbid Conditions* Medical History (Updated 10/28/21 @ 13:50 by Herman Myers MD) Anticoagulation adequate with anticoagulant therapy Xarelto Atrial fibrillation Cervicalgia of gxiiqhzh-pipfvkh-girqh region Diabetes 1.5, 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 mellitus H/O prostate cancer HTN (hypertension) Left ureteral calculus Lumbar stenosis Lumbar stenosis with neurogenic claudication Obstructive pyelonephritis Obstructive sleep apnea Refuses CPAP Surgical History (Updated 10/28/21 @ 13:50 by Herman Myers MD) History of back surgery History of colonoscopy History of pilonidal cyst S/P appendectomy S/P tonsillectomy Family History (Updated 11/07/19 @ 15:57 by Estefanía Parrish RN) Diabetes Grandmother Grandfather Cancer Grandmother MATERNAL Hypertension Grandfather MATERNAL Social History Smoking and tobacco status: never smoked Alcohol intake: never Marital status: service: Yes branch: [employer] 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
[2021-10-30 13:18] VITALS: BP 107/50; PULSE 60; RESP 18; TEMP 37; O2SAT 100
--- NOTE | 2021-10-30 13:23 | ANE.PACU2 ---
Documented by User: Lionel Andesron CRNA 10/30/21 13:23 Inpatient post-anesthesia follow up: Airway intact: Yes Vital signs: Temperature 98.1 F Pulse Rate 62 Respiratory Rate 16 Blood Pressure 96/52 Pulse Oximetry 98 Oxygen Delivery Me thod Room Air Oxygen Flow Rate Fraction of Inspir ed Oxygen Hydration adequate: Yes Nausea and vomiting: No Pain level: 1 Mental status: Baseline
[2021-10-30 13:30] VITALS: BP 116/70; PULSE 59; RESP 20; O2SAT 99
== END 2021-10-30 13:00 | disposition home or self-care (01) ==
PROVIDERS: PCP Family Medicine; Visit Provider Surgery
PROC: 0DJ08ZZ Inspection of Upper Intestinal Tract, Via Natural or Artificial Opening Endoscopic (ICD-10-PCS; CPT 43235; principal; 2021-10-30 11:00)
PROC: 0DJD8ZZ Inspection of Lower Intestinal Tract, Via Natural or Artificial Opening Endoscopic (ICD-10-PCS; CPT 45378; 2021-10-30 11:00)
DX: D50.9 Iron deficiency anemia, unspecified (principal); K31.7 Polyp of stomach and duodenum; D12.5 Benign neoplasm of sigmoid colon; D12.8 Benign neoplasm of rectum; K64.8 Other hemorrhoids; I48.91 Unspecified atrial fibrillation; I10 Essential (primary) hypertension; E11.9 Type 2 diabetes mellitus without complications; Z79.4 Long term (current) use of insulin; Z79.84 Long term (current) use of oral hypoglycemic drugs; Z79.01 Long term (current) use of anticoagulants; Z85.46 Personal history of malignant neoplasm of prostate; G47.33 Obstructive sleep apnea (adult) (pediatric)
CPT/HCPCS: 43251; 45380; 88305; J2704; J7030

== ENCOUNTER 2021-11-01 07:12 | Outpatient (CLI) | payer OTHER, SELFPAY ==
--- NOTE | 2021-11-01 07:20 | XRR_ITS ---
PROCEDURE INFORMATION: Exam: XR Abdomen Exam date and time: 11/01/2021 7:20 AM Age: 71 years old Clinical indication: Device placement; Urinary device; Other: Urinary stent; Additional info: Ureteral stent, rojelio amador 11/01/21 @ 7:00 am appt to follow TECHNIQUE: Imaging protocol: XR of the abdomen. Views: Frontal supine view of the abdomen. 1 View. Total images: 2 COMPARISON: CT chest abd pel w con* 10/02/2021 10:51 AM FINDINGS: Gastrointestinal tract: Bowel gas pattern is nondistended and nonobstructive. Organs: A double-J left ureteral stent is visualized and appears appropriately positioned within the left renal pelvis and urinary bladder. 1.3 cm left UPJ stone unchanged from prior CT. Vasculature: Atherosclerosis is evident. Incidental venous phlebolith noted. Bones/joints: Enthesophytes extending off the iliac wings, ischial tuberosities, and greater trochanters. Spinal degenerative changes are evident. Other findings: Mild stool burden. XR/XR KUB [id number] IMPRESSION: 1. A double-J left ureteral stent is visualized and appears appropriately positioned within the left renal pelvis and urinary bladder. 2. Normal bowel gas pattern 3. Mild stool burden. 4. 1.3 cm left UPJ stone unchanged from prior CT.
== END 2021-11-01 07:13 | disposition home or self-care (01) ==
LOC: RAD 07:15
PROVIDERS: PCP Family Medicine; Visit Provider Urology
DX: Z96.0 Presence of urogenital implants (principal); N20.1 Calculus of ureter
CPT/HCPCS: 74018; 87635

== ENCOUNTER 2021-11-06 01:23 | Emergency (ER) | payer OTHER, MEDICARE, SELFPAY ==
[2021-11-06 01:25] VITALS: BP 132/92; PULSE 93; RESP 19; TEMP 36.8; O2SAT 98; BMI 32.1
--- NOTE | 2021-11-06 01:35 | XRR_ITS ---
PROCEDURE INFORMATION: Exam: XR Right Hip Exam date and time: 11/06/2021 1:35 AM Age: 71 years old Clinical indication: Injury or trauma; Blunt trauma (contusions or hematomas); Right; Prior surgery; Surgery type: Ureteral stent. ; Patient HX: Fall last night at home. C/O RT hip pain. ; Additional info: With pelvis, fall injury TECHNIQUE: Imaging protocol: XR Right hip. Views: 1 view hip with pelvis when performed. COMPARISON: CT chest abd pel w con* 10/02/2021 10:51 AM FINDINGS: Tubes, catheters and devices: Visualized portion of left ureteral stent is well positioned. Bones/joints: Unremarkable. No acute fracture. Soft tissues: Unremarkable. XR/XR hip RT 2-3V wo/w pel* [id number] IMPRESSION: No acute findings.
--- NOTE | 2021-11-06 01:38 | W.ED.FALL ---
HPI - Fall General: Chief Complaint: Fall Stated Complaint: FALL/HIP PAIN Time Seen by Provider: 11/06/21 01:32 History of Present Illness: 69-year-old male patient comes in today with injury to the right hip. Injury occurred about 6 hours ago. Patient reports that he went to let his dog out and when he turned to come back from letting his dog out his right leg went out from under him causing him to fall to the side. Patient denies falling hard against the floor. The patient was unable to get himself up off the floor and waited about an hour until his daughter came home to help him up. Patient has a history of diabetes mellitus, BPH, ureteral calculi, cardiac disease, hypertension. Review of Systems : Reports: difficulty urinating (Poor draining Villanueva catheter) Musc: Reports: joint pain (Right hip) PFSH ED PFSH: Medical History Anticoagulation adequate with anticoagulant therapy Xarelto Atrial fibrillation BPH loc w urin obs/LUTS Cervicalgia of uznalyzs-evqtbnb-fnxlk region Diabetes 1.5, 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 mellitus H/O prostate cancer HTN (hypertension) Left ureteral calculus Lumbar stenosis Lumbar stenosis with neurogenic claudication Obstructive pyelonephritis Obstructive sleep apnea Refuses CPAP Surgical History H/O esophagogastroduodenoscopy (10/30/21) History of back surgery History of colonoscopy (10/30/21) History of pilonidal cyst S/P appendectomy S/P tonsillectomy Family History Grandmother Cancer MATERNAL Diabetes Grandfather Hypertension MATERNAL Diabetes Mother Lupus Heart disease Stroke Social History Smoking and tobacco status: never smoked Alcohol intake: current Alcohol intake frequency: few times a month Marital status: service: Yes branch: [employer] 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 travel: No Financial difficulty paying for basics: Very Hard Physical Exam Const: COMMON NORMALS: alert HENMT: COMMON NORMALS: normocephalic and atraumatic HEAD & SCALP: normocephalic and atraumatic Neck/C-Spine: COMMON NORMALS: full ROM Resp: COMMON NORMALS: clear to auscultation bilaterally AUSCULTATION: clear to auscultation bilaterally Cardio: COMMON NORMALS: regular rate and regular rhythm RATE: regular rate RHYTHM: regular rhythm GI: COMMON NORMALS: Soft to palpation and non-tender PALPATION: Yes Soft to palpation : COMMON NORMALS: Yes no CVA tenderness BLADDER/KIDNEY EXAM: Yes no CVA tenderness OTHER: Draining Villanueva catheter Back/Pelvis: COMMON NORMALS: no CVA tenderness Extremity: RIGHT LOWER EXTREMITY: Yes hip joint (Palpable right lateral hip tenderness. Decreased range of motion) Right hip: Yes inspection, Yes palpation, Yes ROM and Yes neurovascular exam Neuro: SENSORIUM/ORIENTATION: Yes alert Course ED course: 249, reviewed x-ray with Dr. Nolan he did not see any signs of fracture at this time recommend we ambulate patient prior to discharge. 0, patient was able to ambulate within room with some pain but was able to tolerate it. Vital Signs: Vital signs: Vital Signs Temperature 98.2 F 11/06/21 01:25 Pulse Rate 93 11/06/21 01:25 Respiratory Rate 14 11/06/21 02:54 Blood Pressure 132/92 11/06/21 01:25 Pulse Oximetry 97 11/06/21 02:14 MDM - Fall Medical Decision Making Patient came in for evaluation of fall at home with injury to the right hip. On exam there is no sign of shortening or rotation of the hip. Patient is able to lift leg off the bed minimally but with complaints of pain with movement. Differential diagnosis includes right hip fracture, contusion, degenerative disc disease. X-rays of the hip showed degenerative changes of the joint but no obvious fracture. Patient was able ambulates with minimal to moderate discomfort. Patient's Villanueva catheter was restarted due to concern of displacement during fall. CBC showed a 12,000 white count, glucose of 279, urinalysis did have a trace of blood and trace of white blood cells. Reviewed exam with patient with recommendations for continuing routine care and follow-up with primary care as needed for worsening or persistent symptoms. Lab Data : 11/06/21 02:30 11/06/21 02:30 Laboratory Results WBC 12.3 10^3/uL (4.0-10.0) H 11/06/21 02:30 RBC 3.63 10^6/uL (4.1-5.3) L 11/06/21 02:30 Hgb 10.2 g/dL (11.7-16.6) L 11/06/21 02:30 Hct 32.0 % (42.0-52.0) L 11/06/21 02:30 MCV 88.2 fl (80-94) 11/06/21 02:30 MCH 28.1 pg (28.0-34.0) 11/06/21 02: MCHC 31.9 g/dL (30.0-36.0) 11/06/21 02: RDW 14.5 % (12.1-15.1) 11/06/21 02: Plt Count 354 10^3/cmm (130-400) 11/06/21 02: MPV 10.2 fL (7.4-10.4) 11/06/21 02: Neut % (Auto) 70.5 % 11/06/21 02:30 Lymph % (Auto) 19.8 % 11/06/21 02:30 [place] % (Auto) 5.5 % 11/06/21 02:30 Eos % (Auto) 3.5 % 11/06/21 02:30 Baso % (Auto) 0.4 % 11/06/21 02:30 Neut # (Auto) 8.69 10^3/uL (1.8-7.7) H 11/06/21 02: Lymph # (Auto) 2.4 10^3/uL (0.8-4.8) 11/06/21 02:30 [place] # (Auto) 0.7 10^3/uL (0.2-0.9) 11/06/21 02:30 Eos # (Auto) 0.4 10^3/uL (0.0-0.8) 11/06/21 02:30 Baso # (Auto) 0.1 10^3/uL (0.0-0.1) 11/06/21 02:30 Nucleated RBC % (auto) 0 % 11/06/21 02:30 Nucleated RBCs # 0.0 /100WBC 11/06/21 02:30 Sodium 137 mmol/L (136-145) 11/06/21 02:30 Potassium 3.5 mmol/L (3.5-5.1) 11/06/21 02:30 Chloride 95 mmol/L (98-107) L 11/06/21 02:30 Carbon Dioxide 25 mmol/L (22-29) 11/06/21 02:30 Anion Gap 20.5 (5-19) H 11/06/21 02:30 BUN 12 mg/dL (8-23) 11/06/21 02:30 Creatinine 1.0 mg/dL (0.7-1.2) 11/06/21 02:30 GFR Calculation Not Reportable 11/06/21 02:30 Glucose 279 mg/dL (65-115) H 11/06/21 02:30 Calculated Osmolality 294 mOsm/kg (285-295) 11/06/21 02:30 Calcium 9.0 mg/dL (8.5-10.5) 11/06/21 02:30 Total Bilirubin 0.5 mg/dL (0.15-1.2) 11/06/21 02:30 AST 9 U/L (0-40) 11/06/21 02:30 ALT 6 U/L (0-41) 11/06/21 02:30 Alkaline Phosphatase 96 IU/L (40-130) 11/06/21 02:30 Total Protein 7.2 g/dL (6.6-8.7) 11/06/21 02:30 Albumin 3.7 g/dL (3.5-5.2) 11/06/21 02:30 Globulin 3.5 g/dL (1.3-4.6) 11/06/21 02:30 Urine Color Yellow (Yellow) 11/06/21 02:12 Urine Appearance Turbid (CLEAR) 11/06/21 02:12 Urine pH 7 (5-7) 11/06/21 02:12 Ur Specific [place] 1.010 (1.005-1.030) 11/06/21 02:12 Urine Protein 2+ (Negative) H 11/06/21 02:12 Urine Glucose (UA) 4+ (Normal) H 11/06/21 02:12 Urine Ketones 2+ (Negative) H 11/06/21 02:12 Urine Blood 3+ (Negative) H 11/06/21 02:12 Urine Nitrate Negative (Negative) 11/06/21 02:12 Urine Bilirubin Neg (Negative) 11/06/21 02:12 Urine Urobilinogen Norm mg/dL (Negative) 11/06/21 02:12 Ur Leukocyte Esterase 2+ (Negative) H 11/06/21 02:12 Urine RBC 40-50 /hpf (0-2) H 11/06/21 02:12 Urine WBC 10-15 /hpf (0-5) H 11/06/21 02:12 Ur Squamous Epith Cells 0-4 /hpf (0-5) H 11/06/21 02:12 Amorphous Sediment Not Reportable 11/06/21 02:12 Urine Bacteria Trace /hpf (NONE) 11/06/21 02:12 Discharge Plan Discharge Patient Disposition: Home Clinical Impression: Contusion of right hip Qualifiers: Encounter type: initial encounter Qualified Code(s): S70.01XA - Contusion of right hip, initial encounter Condition: Stable Prescriptions: No Action omega-3 fatty acids [Fish Oil Concentrate] 1,000 mg capsule 1,000 mg PO TID 0RF digoxin 250 mcg (0.25 mg) tablet 250 mcg PO DAILY 0RF cholecalciferol (vitamin D3) [Vitamin D3] 25 mcg (1,000 unit) capsule 3,000 unit PO DAILY 0RF (DME) water aerobics See Rx Instructions .Route .MEDSUPPLY Qty: 1 0RF Rx Instructions: As directed tamsulosin 0.4 mg capsule 0.4 mg PO .at bedtime Qty: 30 12RF levofloxacin 500 mg tablet 500 mg PO DAILY Qty: 14 1RF hydrocodone-acetaminophen 5-325 mg tablet 1 tab PO Q6H PRN (Reason: pain) 4 Days Qty: 15 0RF sotalol 160 mg Tablet 80 mg PO BID 0RF gabapentin 800 mg Tablet 800 mg PO TID 0RF fluticasone propionate [Flonase Allergy Relief] 50 mcg/actuation [place],Suspension 2 spray INTRANASAL DAILY PRN (Reason: Allergy Symptoms) 0RF fluticasone propion-salmeterol [Wixela Inhub] 100-50 mcg/dose Blister With Device 1 inh INHALATION BID 0RF albuterol sulfate [ProAir HFA] 90 mcg/actuation HFA aerosol inhaler 2 puff INHALATION Q4H PRN (Reason: Shortness Of Breath) 0RF lisinopril 40 mg tablet 40 mg PO QAM 0RF metformin 1,000 mg tablet 1,000 mg PO BID 0RF insulin aspart U-100 [Novolog Flexpen U-100 Insulin] 100 unit/mL (3 mL) insulin pen See Rx Instructions .ROUTE .COMPLEX Qty: 15 2RF Rx Instructions: Sliding scale medium dose Lantus Solostar U-100 Insulin 100 unit/mL (3 mL) insulin pen 20 unit SUBCUT DAILY 30 Days Qty: 20 0RF furosemide 20 mg tablet 20 mg PO BID 0RF Vitamin D3 25 mcg (1,000 unit) Tablet 1 mcg PO DAILY 0RF Discharge Orders: Discharge ED (Routine); Ordered 11/06/21 Ordered By: Jonnathan Mart Referrals: Trisha Urena MD [Primary Care Provider] - Discharge Diet: Usual diet Discharge Activity: Increase activity as tolerated Patient Instructions: Hip Pain (ED) Activity Restrictions/Additional Instructions: Activity as tolerated. Use acetaminophen for pain. Follow-up with primary care for further instruction. Return to the ER for new concerns. Coding Level of Care Code ED Cartography Teacher for Say Fwd Exam Comprehensive
[2021-11-06 02:14] VITALS: O2SAT 97
--- NOTE | 2021-11-06 02:16 | PC.NURSE ---
patient received with pain to hip and is concerned about the rankin being in the wrong place since the fall.
[2021-11-06 02:21] LABS: Urine Appearance Turbid (CLEAR); Urine Color Yellow (Yellow)
[2021-11-06 02:22] LABS: Add Urine Culture? Yes; Bacteria Urine TRACE /hpf; Bilirubin Urine Neg (Negative); Blood Urine 3+ (Negative); Glucose Urine UA 4+ (Normal); Ketones Urine 2+ (Negative); Leukocyte Esterase Urine 2+ (Negative); Nitrate Urine Negative (Negative); Protein Urine 2+ (Negative); RBC Urine 40-50 /hpf (0-2); Squamous Epithelial Cell Urine 0-4 /hpf (0-5); Urobilinogen Urine Norm (Negative); pH Urine 7 (5-7)
[2021-11-06 02:38] LABS: Basophils # 0.1 10^3/uL (0.0-0.1); Basophils % 0.4 %; Eosinophils # 0.4 10^3/uL (0.0-0.8); Eosinophils % 3.5 %; Hemoglobin 10.2 g/dL (11.7-16.6); Lymphocytes # 2.4 10^3/uL (0.8-4.8); Lymphocytes % 19.8 %; Mean Corpuscular HGB Conc 31.9 g/dL (30.0-36.0); Mean Corpuscular Hemoglobin 28.1 pg (28.0-34.0); Mean Corpuscular Volume 88.2 fl (80-94); Mean Platelet Volume 10.2 fL (7.4-10.4); Monocytes # 0.7 10^3/uL (0.2-0.9); Monocytes % 5.5 %; Neutrophils # 8.69 10^3/uL (1.8-7.7); Neutrophils % 70.5 %; Nucleated Red Blood Cells % 0 %; Platelet Count 354 10^3/cmm (130-400); Red Blood Count 3.63 10^6/uL (4.1-5.3); Red Cell Distribution Width 14.5 % (12.1-15.1); White Blood Count 12.3 10^3/uL (4.0-10.0)
[2021-11-06 02:51] LABS: Add Urine Microscopic? YES
[2021-11-06 02:54] VITALS: RESP 14
[2021-11-06] MEDS: morphine 4 mg/mL SDV 1 mL 2 MG IVP (02:54)
[2021-11-06 03:06] LABS: Alanine Aminotransferase 6 U/L (0-41); Albumin Level 3.7 g/dL (3.5-5.2); Alkaline Phosphatase 96 IU/L (40-130); Anion Gap 20.5 (5-19); Aspartate Amino Transferase 9 U/L (0-40); Blood Urea Nitrogen 12 mg/dL (8-23); Carbon Dioxide 25 mmol/L (22-29); Chloride 95 mmol/L (98-107); Creatinine Clr Calc Pharmacy 74.9961; Globulin 3.5 g/dL (1.3-4.6); Glucose 279 mg/dL (65-115); Osmolality Calculated 294 mOsm/kg (285-295); Potassium 3.5 mmol/L (3.5-5.1); Sodium 137 mmol/L (136-145); Total Bilirubin 0.5 mg/dL (0.15-1.2); Total Protein 7.2 g/dL (6.6-8.7)
[2021-11-06 03:58] VITALS: BP 154/79; PULSE 79; RESP 16; TEMP 36.8; O2SAT 98
== END 2021-11-06 03:59 | disposition home or self-care (01) ==
PROVIDERS: Emergency Provider Nurse Practitioner Family; PCP Family Medicine
DX: S70.01XA Contusion of right hip, initial encounter (principal); Z79.4 Long term (current) use of insulin; Z79.84 Long term (current) use of oral hypoglycemic drugs; E13.9 Other specified diabetes mellitus without complications; Z85.46 Personal history of malignant neoplasm of prostate; I10 Essential (primary) hypertension; W01.0XXA Fall on same level from slipping, tripping and stumbling without subsequent striking against object, initial encounter
CPT/HCPCS: 51702; 73502; 80053; 81001; 85025; 87086; 96374; 99284; J0330; J2270; J2405; J2704; J2710; J3010; J3490

== ENCOUNTER 2021-11-06 05:33 | Day surgery (SDC) | payer OTHER, SELFPAY ==
[2021-11-05 14:52] VITALS: BMI 32.1
[2021-11-06] VITALS (7 sets, daily range): BP systolic 105–132; BP diastolic 65–78; PULSE 84–99; RESP 15–20; TEMP 36.4–36.7; O2SAT 97–100
--- NOTE | 2021-11-06 | SCC_ITS ---
1. Cystoscopy, removal of left ureteral stent 2. Left ureteroscopy, laser lithotripsy stent placement 63.5 seconds of fluoroscopic guidance, for a cumulative dose of 12.76 mGy, was provided to Dr. Paul by the radiology department. C-arm images of the abdomen were saved for the patient's permanent record. [facility]
--- NOTE | 2021-11-06 05:52 | SC_ITS ---
WS: [id number] REASON FOR EXAM: Left ureteral stone FINDINGS: Preprocedure abdomen film demonstrated left ureteral stent with angular calculus at the L3 level in t he mid left ureter. Intraprocedural images demonstrate passage of wire from the bladder retrograde through the left urete r into the left kidney. Previously identified calculus is noted on the initial images at 10:30. Calcu sagar not identified on the final image 11:29. [facility] IMPRESSION: Removal of proximal left ureteral calculus as above.
[2021-11-06 07:10] LABS: Glucose Point of Care 308 mg/dL (70-110)
[2021-11-06] MEDS: sodium chloride 0.9% 1,000 ML 30 ML IV (07:25)
[2021-11-06] MEDS: insulin regular-human 100 units/1 mL 4 UNIT IVP (07:30)
--- NOTE | 2021-11-06 08:15 | ANES.PREANE2 ---
Pre-Anesthetic Assessment Height/Weight: Height 1.73 m Weight 95.708 kg Preop Diagnosis: Left ureteral stone Operation Date: 11/06/21 08:35 Proposed Procedures p Cystoscopy 97077/n20.1(Not Applicable) - MD patsy Beasley Ureteral Stent Exchange(Left) - MD patsy Beasley Retrograde Pyelogram(Left) - MD patsy Beasley Laser Lithotripsy(Left) - Misael Paul MD Was Beta Carmelita taken within 24 hours: Yes Was Clonidine taken within 24 hours: N/A Last intake: Intake Last Liquid Date 11/05/21 Last Liquid Time 22:00 Last Solid Date 11/05/21 Last Solid Time 08:00 Social No alcohol and No tobacco Exam alert, oriented x 3 and clear to auscultation bilaterally irregular rate Airway Submandibular: within normal limits Cervical ROM: within normal limits Mallampati: Class II Dentition: chipped Pulmonary Sleep Apnea CV/HEM Atrial Fibrillation, Anemia and Hypertension NSR w/ RBB 2019 TTE Normal EF 2019 Stress test Normal BPH Nephrolithiasis Hepatic None reported GI Gastroesophageal Reflux Disease Metabolic Diabetes Mellitus Musc/skel Lower Back Pain and Osteoarthritis/DJD Cervicalgia Spinal stenosis Neuropsych None reported We discussed risk and benefits of general anesthesia including PONV, sore throat (sometimes severe), corneal abrasion, positioning and peripheral nerve injuries, life threatening allergic reaction, post operative ICU admission requiring prolonged intubation, stroke, heart attack, , and rare incidences of recall. Patient consents to proceed with general anesthesia. Anesthetic Plan ASA status: 3 (71 year old male with uncontrolled diabetes and atrial fibrillation) Anesthesia: Anesthesia Evaluation and General Medications/Allergies Home Medications Medication Instructions Recorded Confirmed Last Taken Type cholecalciferol (vitamin D3) 25 3,000 unit PO DAILY 11/07/19 11/06/21 11/05/21 History mcg (1,000 unit) capsule (Vitamin D3) digoxin 250 mcg (0.25 mg) tablet 250 mcg PO DAILY 11/07/19 11/06/21 11/05/21 History omega-3 fatty acids 1,000 mg 1,000 mg PO TID 11/07/19 11/05/21 03/19/21 History capsule (Fish Oil Concentrate) fluticasone propionate 50 2 spray INTRANASAL DAILY PRN 05/07/20 11/05/21 Unknown History mcg/actuation nasal spray,suspension (Flonase Allergy Relief) gabapentin 800 mg tablet 800 mg PO TID 05/07/20 11/06/21 11/05/21 History sotalol 160 mg tablet 80 mg PO BID 05/07/20 11/05/21 03/19/21 History water aerobics #1 ea 05/09/21 11/01/21 Unknown Rx metformin 1,000 mg tablet 1,000 mg PO BID 08/23/21 11/06/21 11/05/21 08:00 History insulin aspart U-100 100 unit/mL See Rx Instructions .ROUTE 08/30/21 11/06/21 11/05/21 Rx (3 mL) subcutaneous pen (Novolog .COMPLEX #15 ml Flexpen U-100 Insulin aspart) insulin glargine 100 unit/mL (3 20 unit (0.2 mL) SUBCUT DAILY 30 08/30/21 11/06/21 11/04/21 Rx mL) subcutaneous pen (Lantus Days #20 ml Solostar U-100 Insulin) albuterol sulfate 90 mcg/actuation 2 puff INHALATION Q4H PRN 10/03/21 11/05/21 Unknown History aerosol inhaler (ProAir HFA) fluticasone 100 mcg-salmeterol 50 1 inh INHALATION BID 10/03/21 11/05/21 Unknown History mcg/dose blistr powdr for inhalation (Teressaela Inhub) lisinopril 40 mg tablet 40 mg PO QAM 10/03/21 11/06/21 11/05/21 History hydrocodone 5 mg-acetaminophen 325 1 tab PO Q6H PRN 4 Days #15 tab 11/01/21 11/05/21 Unknown Rx mg tablet levofloxacin 500 mg tablet 500 mg PO DAILY #14 tab 11/01/21 11/06/21 11/04/21 Rx tamsulosin 0.4 mg capsule 0.4 mg PO .at bedtime #30 cap 11/01/21 11/05/21 Unknown Rx cholecalciferol (vitamin D3) 25 1 mcg PO DAILY 11/05/21 11/05/21 Unknown History mcg (1,000 unit) tablet (Vitamin D3) furosemide 20 mg tablet 20 mg PO BID 11/05/21 11/06/21 11/05/21 History \ Allergies Allergy/AdvReac Type Severity Reaction Status Date / Time No Known Allergies Allergy Verified 11/05/21 14:42 Current Medications Generic Name Dose Route Start Last Admin Trade Name Janq PRN Reason Stop Dose Admin Sodium Chloride 1,000 mls @ 30 mls/hr 11/06/21 07:00 11/06/21 07:25 Sodium Chloride 0.9% IV 11/07/21 06:59 30 mls/hr .Q24H ROSALBA Administration PFSH Anesthesia Medical History Anticoagulation adequate with anticoagulant therapy Xarelto Atrial fibrillation BPH loc w urin obs/LUTS Cervicalgia of gbvfqgam-zdmhqzw-mzyma region Diabetes 1.5, 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 mellitus H/O prostate cancer HTN (hypertension) Left ureteral calculus Lumbar stenosis Lumbar stenosis with neurogenic claudication Obstructive pyelonephritis Obstructive sleep apnea Refuses CPAP Surgical History H/O esophagogastroduodenoscopy (10/30/21) History of back surgery History of colonoscopy (10/30/21) History of pilonidal cyst S/P appendectomy S/P tonsillectomy Family History Grandmother Cancer MATERNAL Diabetes Grandfather Hypertension MATERNAL Diabetes Mother Lupus Heart disease Stroke Social History Smoking and tobacco status: never smoked Alcohol intake: current Alcohol intake frequency: few times a month Marital status: service: Yes branch: [employer] 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
[2021-11-06 08:27] LABS: Glucose Point of Care 294 mg/dL (70-110)
[2021-11-06] MEDS: insulin regular-human 100 units/1 mL 6 UNIT IVP (08:48)
--- NOTE | 2021-11-06 09:39 | W.PM.OPSUD ---
Surgery/Procedure H&P Update DATE OF PROCEDURE: November 06, 2021 DATE H&P PERFORMED: 11/01/20 H&P UPDATE INFORMATION: I have reviewed H&P completed within last 30 days, I have examined patient prior to procedure, No changes to prior documentation and H&P is in [facility] [place] on date indicated CHANGES TO PREVIOUS DOCUMENTATION: He was seen in the emergency department early this morning after a fall where he fell on his left side. No fractures noted on imaging studies. He was discharged from the ED ambulatory. PREOP DIAGNOSIS: Left ureteral stone PRIMARY INDICATION FOR PROCEDURE: Residual left proximal ureteral stone identified during work-up for obstructive pyelonephritis with emergency stenting. Now back for definitive treatment of the stone. PLANNED PROCEDURE: Operation Date: 11/06/21 08:35 Proposed Procedures p Cystoscopy 86813/n20.1(Not Applicable) - Misael Paul MD s Ureteral Stent Exchange(Left) - Misael Paul MD s Retrograde Pyelogram(Left) - MD patsy Beasley Laser Lithotripsy(Left) - Misael Paul MD
[2021-11-06 09:41] LABS: Glucose Point of Care 294 mg/dL (70-110)
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
[2021-11-06] MEDS: insulin regular-human 100 units/1 mL 10 UNIT IVP (09:58)
[2021-11-06] MEDS: levofloxacin-dextrose 5 % 500 MG/100 ML PREMIX 100 MG IV (10:05)
[2021-11-06 12:07] LABS: Glucose Point of Care 244 mg/dL (70-110)
--- NOTE | 2021-11-06 12:59 | ANE.PACU2 ---
Inpatient post-anesthesia follow up: Airway intact: Yes Vital signs: Temperature 98 F Pulse Rate 84 Respiratory Rate 16 Blood Pressure 114/77 Pulse Oximetry 99 Oxygen Delivery Me thod Room Air Oxygen Flow Rate 8 Fraction of Inspir ed Oxygen Hydration adequate: Yes Nausea and vomiting: No Pain level: 2 Mental status: Baseline
[2021-11-11 14:54] LABS: Stone Source LEFT URETERAL STONE
== END 2021-11-06 12:45 | disposition home or self-care (01) ==
PROVIDERS: PCP Family Medicine; Visit Provider Urology
PROC: 0TJB8ZZ Inspection of Bladder, Via Natural or Artificial Opening Endoscopic (ICD-10-PCS; CPT 52000; principal; 2021-11-06 08:25)
PROC: (CPT 52356; 2021-11-06 08:25)
PROC: (CPT 74420; 2021-11-06 08:25)
PROC: (CPT 52356; 2021-11-06 08:25)
DX: N20.1 Calculus of ureter (principal); G47.30 Sleep apnea, unspecified; I48.91 Unspecified atrial fibrillation; I10 Essential (primary) hypertension; E11.40 Type 2 diabetes mellitus with diabetic neuropathy, unspecified; N40.1 Benign prostatic hyperplasia with lower urinary tract symptoms; N13.8 Other obstructive and reflux uropathy; Z79.4 Long term (current) use of insulin; Z79.01 Long term (current) use of anticoagulants; Z85.46 Personal history of malignant neoplasm of prostate; G47.33 Obstructive sleep apnea (adult) (pediatric); Z82.49 Family history of ischemic heart disease and other diseases of the circulatory system; Z83.3 Family history of diabetes mellitus
CPT/HCPCS: 52356; 36416; 76000; 82365; 82962; 88300; 96365; 96374; 96376; C2625; J1815; J1956; J7030

== ENCOUNTER 2021-11-13 10:05 | Outpatient (CLI) | payer OTHER, SELFPAY | END 2021-11-13 10:06 | disposition home or self-care (01) | LOC: WOUND 10:06 | PROVIDERS: PCP Family Medicine; Visit Provider Thoracic Surgery (Cardiothoracic Vascular Surgery) | DX: I96 Gangrene, not elsewhere classified (principal); E11.621 Type 2 diabetes mellitus with foot ulcer; L97.421 Non-pressure chronic ulcer of left heel and midfoot limited to breakdown of skin | CPT/HCPCS: 97597; 99213 ==

== ENCOUNTER 2021-11-17 19:40 | Emergency (ER) | payer OTHER, MEDICARE, SELFPAY ==
[2021-11-17 19:44] VITALS: BP 122/72; PULSE 74; RESP 18; TEMP 36.6; O2SAT 96; BMI 28.1
--- NOTE | 2021-11-17 20:18 | ED_ITS ---
HPI - General Adult General: Chief complaint: General Medical Stated complaint: HYPOGLYCEMIC COMA Time Seen by Provider: 11/17/21 19:51 Source: patient and family History of Present Illness: 71-year-old diabetic male. Insulin-dependent. He presents after a blood sugar of 29 at home. states he was not responding, and twitching. Sugar improved after administration of D50 in the field. He is up and eating currently. They note that he has had significant decrease in oral intake lately. He says he can eat much at a time. His recent history includes ureteral stone intervention with stenting. No fever, no cough, no diarrhea. Patient states he may be constipated. Onset (ago): minute(s) Radiation: non-radiation Quality: other Relieving factors: other (Glucose) Exacerbating factors: other Associated symptoms: Reports confusion, diaphoresis, decreased appetite and weakness (Generalized); Deny chest pain, cough, dyspnea, fevers/chills, headache(s), nausea, short of br eath or vomiting Treatments prior to arrival: other (D50) Review of Systems Const: Reports: diaphoresis ENMT: Denies: throat pain Card: Denies: chest pain Resp: Denies: dyspnea GI: Denies: nausea or vomiting : Reports: urinary frequency; Denies: dysuria Neuro: Reports: confusion; Denies: headache(s) [facility] PFSH: Medical History Anticoagulation adequate with anticoagulant therapy Xarelto Atrial fibrillation BPH loc w urin obs/LUTS Cervicalgia of osykamfh-yecsvsr-vsjto region Diabetes 1.5, 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 mellitus H/O prostate cancer HTN (hypertension) Left ureteral calculus Lumbar stenosis Lumbar stenosis with neurogenic claudication Obstructive pyelonephritis Obstructive sleep apnea Refuses CPAP Surgical History H/O esophagogastroduodenoscopy (10/30/21) History of back surgery History of colonoscopy (10/30/21) History of pilonidal cyst S/P appendectomy S/P tonsillectomy S/P ureteral stent placement Status post laser lithotripsy of ureteral calculus Family History Grandmother Cancer MATERNAL Diabetes Grandfather Hypertension MATERNAL Diabetes Mother Lupus Heart disease Stroke Social History Smoking and tobacco status: never smoked Alcohol intake: current Alcohol intake frequency: few times a month Marital status: service: Yes branch: [employer] 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 travel: No Financial difficulty paying for basics: Very Hard Physical Exam Const: COMMON NORMALS: no acute distress HENMT: COMMON NORMALS: normocephalic, atraumatic and Normal external nose p resent HEAD & SCALP: normocephalic and atraumatic FACE & SINUS: normal facial exam NOSE: Normal external nose present and Normal nares present MOUTH: Normal oral and palatal mucosa present Eye: COMMON NORMALS: Equal, round and reactive pupils present and EOMs intact bilaterally PUPIL: Yes Equal, round and reactive pupils present Chest: COMMONS NORMALS: normal inspection of the chest Resp: COMMON NORMALS: normal respiratory effort, No use of accessory muscles and clear to auscultation bilaterally AUSCULTATION: clear to auscultation bilaterally Cardio: COMMON NORMALS: regular rate and regular rhythm RATE: regular rate RHYTHM: regular rhythm GI: COMMON NORMALS: Normal to inspection, nondistended, normoactive bowel sounds present, Soft to palpation and non-tender PALPATION: Yes Soft to palpation : COMMON NORMALS: Yes no CVA tenderness BLADDER/KIDNEY EXAM: Yes no CVA tenderness Back/Pelvis: COMMON NORMALS: no CVA tenderness Course Vital Signs: Vital signs: Vital Signs Temperature 97.8 F 11/17/21 19:44 Pulse Rate 74 11/17/21 19:44 Respiratory Rate 18 11/17/21 19:44 Blood Pressure 122/72 11/17/21 19:44 Pulse Oximetry 96 11/17/21 19:44 MDM - General Adult Medical Decision Making White blood cell count is 12.4. No significant left shift. Hemoglobin 10.4. Creatinine is 1. Blood sugar has stayed up so far. Patient has eaten some. Chest x-ray shows a focal airspace opacity in the left lung base according to radiology. He also has what appears to be urinary tract infection on urinalysis. All could be causes of hypoglycemia, along with his decreased intake. pt now has a temp of 100.8. will treat as such. levaquin for both uti and pneumonia. counsleed on 12ing long acting insulin for next 24-48 hours and watching sugar and intake closely to prevent hypoglycemia. will allow home. will test for covid 19 as well given temp. Lab Data : 11/17/21 22:10 11/17/21 22:10 Radiology Impressions Chest X-Ray 11/17/21 20:18 IMPRESSION: 1. Focal airspace opacity in the left lung base is most likely pneumonia. Radiographic follow-up to document resolution recommended. Laboratory Results WBC 12.4 10^3/uL (4.0-10.0) H 11/17/21 22:10 RBC 3.78 10^6/uL (4.1-5.3) L 11/17/21 22:10 Hgb 10.4 g/dL (11.7-16.6) L 11/17/21 22:10 Hct 33.0 % (42.0-52.0) L 11/17/21 22:10 MCV 87.3 fl (80-94) 11/17/21 22:10 MCH 27.5 pg (28.0-34.0) L 11/17/21 22:10 MCHC 31.5 g/dL (30.0-36.0) 11/17/21 22:10 RDW 14.6 % (12.1-15.1) 11/17/21 22:10 Plt Count 468 10^3/cmm (130-400) H 11/17/21 22:10 MPV 9.8 fL (7.4-10.4) 11/17/21 22:10 Neut % (Auto) 75.0 % 11/17/21 22:10 Lymph % (Auto) 14.3 % 11/17/21 22:10 [place] % (Auto) 9.4 % 11/17/21 22:10 Eos % (Auto) 0.5 % 11/17/21 22:10 Baso % (Auto) 0.2 % 11/17/21 22:10 Neut # (Auto) 9.30 10^3/uL (1.8-7.7) H 11/17/21 22:10 Lymph # (Auto) 1.8 10^3/uL (0.8-4.8) 11/17/21 22:10 [place] # (Auto) 1.2 10^3/uL (0.2-0.9) H 11/17/21 22:10 Eos # (Auto) 0.1 10^3/uL (0.0-0.8) 11/17/21 22:10 Baso # (Auto) 0.0 10^3/uL (0.0-0.1) 11/17/21 22:10 Nucleated RBC % (auto) 0 % 11/17/21 22:10 Nucleated RBCs # 0.0 /100WBC 11/17/21 22:10 Sodium 136 mmol/L (136-145) 11/17/21 22:10 Potassium 3.5 mmol/L (3.5-5.1) 11/17/21 22:10 Chloride 96 mmol/L (98-107) L 11/17/21 22:10 Carbon Dioxide 26 mmol/L (22-29) 11/17/21 22:10 Anion Gap 17.5 (5-19) 11/17/21 22:10 BUN 20 mg/dL (8-23) 11/17/21 22:10 Creatinine 1.0 mg/dL (0.7-1.2) 11/17/21 22:10 GFR Calculation Not Reportable 11/17/21 22:10 Glucose 96 mg/dL (65-115) 11/17/21 22:10 Calculated Osmolality 284 mOsm/kg (285-295) L 11/17/21 22:10 Calcium 9.4 mg/dL (8.5-10.5) 11/17/21 22:10 Magnesium 1.4 mg/dL (1.7-2.3) L 11/17/21 22:10 Total Bilirubin 0.3 mg/dL (0.15-1.2) 11/17/21 22:10 AST 56 U/L (0-40) H 11/17/21 22:10 ALT 31 U/L (0-41) 11/17/21 22:10 Alkaline Phosphatase 102 IU/L (40-130) 11/17/21 22:10 Total Protein 7.4 g/dL (6.6-8.7) 11/17/21 22:10 Albumin 3.4 g/dL (3.5-5.2) L 11/17/21 22:10 Globulin 4.0 g/dL (1.3-4.6) 11/17/21 22:10 Urine Color Yellow (Yellow) 11/17/21 21:00 Urine Appearance Clear (CLEAR) 11/17/21 21:00 Urine pH 5 (5-7) 11/17/21 21:00 Ur Specific [place] 1.010 (1.005-1.030) 11/17/21 21:00 Urine Protein 1+ (Negative) H 11/17/21 21:00 Urine Glucose (UA) Trace (Normal) H 11/17/21 21:00 Urine Ketones Negative (Negative) 11/17/21 21:00 Urine Blood Neg (Negative) 11/17/21 21:00 Urine Nitrate Negative (Negative) 11/17/21 21:00 Urine Bilirubin Neg (Negative) 11/17/21 21:00 Urine Urobilinogen Norm mg/dL (Negative) 11/17/21 21:00 Ur Leukocyte Esterase 1+ (Negative) H 11/17/21 21:00 Urine RBC 0-4 /hpf (0-2) H 11/17/21 21:00 Urine WBC 55-80 /hpf (0-5) H 11/17/21 21:00 Ur Squamous Epith Cells 0-4 /hpf (0-5) H 11/17/21 21:00 Amorphous Sediment 1+ /hpf 11/17/21 21:00 Urine Bacteria Trace /hpf (NONE) 11/17/21 21:00 Hyaline Casts 0-4 /lpf H 11/17/21 21:00 Discharge Plan Discharge Patient Disposition: Home Clinical Impression: Hypoglycemia, Urinary tract infection, Pneumonia Condition: Stable Prescriptions: New levofloxacin 750 mg tablet 750 mg PO DAILY 7 Days Qty: 7 0RF Discontinued levofloxacin 500 mg tablet 500 mg PO DAILY Qty: 14 1RF No Action omega-3 fatty acids [Fish Oil Concentrate] 1,000 mg capsule 1,000 mg PO TID 0RF digoxin 250 mcg (0.25 mg) tablet 250 mcg PO DAILY 0RF cholecalciferol (vitamin D3) [Vitamin D3] 25 mcg (1,000 unit) capsule 3,000 unit PO DAILY 0RF (DME) water aerobics See Rx Instructions .Route .MEDSUPPLY Qty: 1 0RF Rx Instructions: As directed tamsulosin 0.4 mg capsule 0.4 mg PO .at bedtime Qty: 30 12RF hydrocodone-acetaminophen 5-325 mg tablet 1 tab PO Q6H PRN (Reason: pain) 4 Days Qty: 15 0RF sotalol 160 mg Tablet 80 mg PO BID 0RF gabapentin 800 mg Tablet 800 mg PO TID 0RF fluticasone propionate [Flonase Allergy Relief] 50 mcg/actuation [place],Suspension 2 spray INTRANASAL DAILY PRN (Reason: Allergy Symptoms) 0RF fluticasone propion-salmeterol [Wixela Inhub] 100-50 mcg/dose Blister With Device 1 inh INHALATION BID 0RF albuterol sulfate [ProAir HFA] 90 mcg/actuation HFA aerosol inhaler 2 puff INHALATION Q4H PRN (Reason: Shortness Of Breath) 0RF lisinopril 40 mg tablet 40 mg PO QAM 0RF metformin 1,000 mg tablet 1,000 mg PO BID 0RF insulin aspart U-100 [Novolog Flexpen U-100 Insulin] 100 unit/mL (3 mL) insulin pen See Rx Instructions .ROUTE .COMPLEX Qty: 15 2RF Rx Instructions: Sliding scale medium dose Lantus Solostar U-100 Insulin 100 unit/mL (3 mL) insulin pen 20 unit SUBCUT DAILY 30 Days Qty: 20 0RF furosemide 20 mg tablet 20 mg PO BID 0RF Vitamin D3 25 mcg (1,000 unit) Tablet 1 mcg PO DAILY 0RF Discharge Orders: Discharge ED (Routine); Ordered 11/17/21 Ordered By: Joaquim Beard Referrals: Trisha Urena MD [Primary Care Provider] - 4-7 days Patient Instructions: Urinary Tract Infection in Men (ED), Hypoglycemia in a Person with Diabetes (ED), Pneumonia (ED) Activity Restrictions/Additional Instructions: Take one half your long-acting insulin dose tomorrow. Watch your blood sugar every 2-3 hours for the next 12 hours or so. Set an alarm to wake you to do so. Antibiotics as directed. Keep your oral intake up. Return for worsening mental status, fever greater than 100 despite 2-3 doses of antibiotics, vomiting liquids or medications, shortness of breath, any other concerning symptoms. Coding Level of Care Code ED Chief Radiology for Chg Fwd Exam Comprehensive
--- NOTE | 2021-11-17 20:18 | XRR_ITS ---
PROCEDURE INFORMATION: Exam: XR Chest Exam date and time: 11/17/2021 8:18 PM Age: 71 years old Clinical indication: Patient HX: Coughing congestion x 2 weeks; Additional info: Altered mental status TECHNIQUE: Imaging protocol: XR of the chest. Views: 1 view. COMPARISON: CR XR chest 1V portable [id number] 10/03/2021 11:13 AM FINDINGS: Lungs: Focal airspace opacity in the left lung base abutting the diaphragm. Right lung is clear. Pleural spaces: Unremarkable. No pleural effusion. No pneumothorax. Heart/Mediastinum: Unremarkable. No cardiomegaly. Bones/joints: Unremarkable. XR/XR chest 1V portable [id number] IMPRESSION: 1. Focal airspace opacity in the left lung base is most likely pneumonia. Radiographic follow-up to document resolution recommended.
[2021-11-17] MEDS: lactated ringers 1,000 ML 999 ML IV (20:29)
[2021-11-17 21:22] LABS: Add Urine Culture? Yes; Add Urine Microscopic? YES; Amorphous Sediment Urine 1+ /hpf; Bacteria Urine TRACE /hpf; Bilirubin Urine Neg (Negative); Blood Urine Neg (Negative); Glucose Urine UA Trace (Normal); Hyaline Casts Urine 0-4 /lpf; Ketones Urine Negative (Negative); Leukocyte Esterase Urine 1+ (Negative); Nitrate Urine Negative (Negative); Protein Urine 1+ (Negative); RBC Urine 0-4 /hpf (0-2); Squamous Epithelial Cell Urine 0-4 /hpf (0-5); Urine Appearance Clear (CLEAR); Urine Color Yellow (Yellow); Urobilinogen Urine Norm (Negative); WBC Urine 55-80 /hpf (0-5); pH Urine 5 (5-7)
[2021-11-17 22:13] LABS: Basophils % 0.2 %; Eosinophils # 0.1 10^3/uL (0.0-0.8); Eosinophils % 0.5 %; Hemoglobin 10.4 g/dL (11.7-16.6); Lymphocytes # 1.8 10^3/uL (0.8-4.8); Lymphocytes % 14.3 %; Mean Corpuscular HGB Conc 31.5 g/dL (30.0-36.0); Mean Corpuscular Hemoglobin 27.5 pg (28.0-34.0); Mean Corpuscular Volume 87.3 fl (80-94); Mean Platelet Volume 9.8 fL (7.4-10.4); Monocytes # 1.2 10^3/uL (0.2-0.9); Monocytes % 9.4 %; Nucleated Red Blood Cells % 0 %; Platelet Count 468 10^3/cmm (130-400); Red Blood Count 3.78 10^6/uL (4.1-5.3); Red Cell Distribution Width 14.6 % (12.1-15.1); White Blood Count 12.4 10^3/uL (4.0-10.0)
[2021-11-17 22:29] LABS: Alanine Aminotransferase 31 U/L (0-41); Albumin Level 3.4 g/dL (3.5-5.2); Alkaline Phosphatase 102 IU/L (40-130); Anion Gap 17.5 (5-19); Aspartate Amino Transferase 56 U/L (0-40); Blood Urea Nitrogen 20 mg/dL (8-23); Calcium 9.4 mg/dL (8.5-10.5); Carbon Dioxide 26 mmol/L (22-29); Chloride 96 mmol/L (98-107); Glucose 96 mg/dL (65-115); Magnesium 1.4 mg/dL (1.7-2.3); Osmolality Calculated 284 mOsm/kg (285-295); Potassium 3.5 mmol/L (3.5-5.1); Sodium 136 mmol/L (136-145); Total Bilirubin 0.3 mg/dL (0.15-1.2); Total Protein 7.4 g/dL (6.6-8.7)
[2021-11-17] MEDS: acetaminophen 500 mg Tablet 1000 MG PO (23:48)
[2021-11-17] MEDS: levoFLOXacin 750 mg Tablet PO (23:48)
[2021-11-18 02:49] LABS: Adenovirus Not Detected (NOT DETECT); Chlamydia Pneumoniae Not Detected (NOT DETECT); Coronavirus 229E,HKU1,NL63,OC4 Not Detected (NOT DETECT); Human Metapneumovirus Not Detected (NOT DETECT); Human Rhinovirus/Enterovirus Not Detected (NOT DETECT); Influenza A Not Detected (NOT DETECT); Influenza A H1 Not Detected (NOT DETECT); Influenza A H1-2009 Not Detected (NOT DETECT); Influenza A H3 Not Detected (NOT DETECT); Influenza B Not Detected (NOT DETECT); Mycoplasma Pneumoniae Not Detected (NOT DETECT); Parainfluenza Virus Type 1 Not Detected (NOT DETECT); Parainfluenza Virus Type 2 Not Detected (NOT DETECT); Parainfluenza Virus Type 3 Not Detected (NOT DETECT); Parainfluenza Virus Type 4 Not Detected (NOT DETECT); Respiratory Syncytial Virus A Not Detected (NOT DETECT); Respiratory Syncytial Virus B Not Detected (NOT DETECT); SARS-COV-2 Detected (NOT DETECT)
[2021-11-18 16:59] LABS: Glucose Point of Care 84 mg/dL (70-110)
[2021-11-18 16:59] LABS: Glucose Point of Care 79 mg/dL (70-110)
[2021-11-18 17:00] LABS: Glucose Point of Care 106 mg/dL (70-110)
== END 2021-11-18 00:22 | disposition home or self-care (01) ==
PROVIDERS: Emergency Provider Emergency Medicine; PCP Family Medicine
DX: E11.649 Type 2 diabetes mellitus with hypoglycemia without coma (principal); N39.0 Urinary tract infection, site not specified; J18.9 Pneumonia, unspecified organism; Z79.4 Long term (current) use of insulin; Z85.46 Personal history of malignant neoplasm of prostate; I10 Essential (primary) hypertension; U07.1 COVID-19
CPT/HCPCS: 36415; 36416; 71045; 80053; 81001; 82962; 83735; 85025; 87086; 87635; 96360; 99283

== ENCOUNTER 2021-12-04 09:45 | Outpatient (CLI) | payer OTHER, SELFPAY | END 2021-12-04 09:46 | disposition home or self-care (01) | LOC: WOUND 09:46 | PROVIDERS: PCP Family Medicine; Visit Provider Thoracic Surgery (Cardiothoracic Vascular Surgery) | DX: I96 Gangrene, not elsewhere classified (principal); L98.499 Non-pressure chronic ulcer of skin of other sites with unspecified severity; E11.621 Type 2 diabetes mellitus with foot ulcer | CPT/HCPCS: 99212 ==

== ENCOUNTER 2021-12-04 10:27 | Inpatient (IN) | payer OTHER, MEDICARE, SELFPAY ==
[2021-12-04] VITALS (9 sets, daily range): BP systolic 95–145; BP diastolic 56–84; PULSE 64–83; RESP 14–20; TEMP 36.3–36.5; O2SAT 94–99; BMI 29.6
--- NOTE | 2021-12-04 11:07 | ED_ITS ---
HPI - Weakness General: Chief complaint: Weakness Stated complaint: HYPOTENSION Time Seen by Provider: 12/04/21 10:37 Source: patient and EMS Mode of arrival: EMS Limitations: no limitations History of Present Illness: See nursing assessment. Patient states that he was at wound care today checking out a wound to his left plantar foot when he had low blood pressure of 90s over 50s. He states he got dizzy when he sat up. He states he normally is able to transfer from bed to motorized wheelchair with assistance. However, when he went to transfer he became dizzy and felt like he might pass out. Denies any fever chills or sweats. He denies any abdominal pain or chest pain. He denies any shortness of breath or cough. He denies any dysuria. He has had problems with hypotension recently has had his blood pressure medication cut in half. Patient states he used to have hypertension but no longer has hypertension. He did test positive for COVID on November 17, 2021. Patient denies any fever cough or shortness of breath at this time. Patient is insulin-dependent diabetic. He states the wound to his left foot has healed. He does have possible history of anemia also. Denies any allergies to medications. Associated symptoms: Reports other (Left foot wound has healed.); Denies chest pain, chills, confusion, melena, decreased appetite, diaphoresis, dysuria, easy bruising, fever(s), headache(s), myalgias, nausea, rash, short of breath, syncope or vomiting Review of Systems Const: Denies: fever(s), chills or diaphoresis Eyes: Denies: change in vision ENMT: Denies: throat pain Card: Reports: lightheadedness; Denies: chest pain, palpitations, edema or syncope Resp: Denies: dyspnea, productive cough, non-productive cough or wheezing GI: Denies: abdominal pain, nausea, vomiting or melena : Denies: flank pain, difficulty urinating or dysuria Musc: Denies: neck pain or back pain Skin/Breast: Denies: rash or pruritus Neuro: Reports: dizziness (Near syncopal); Denies: headache(s) or confusion Psych: Denies: anxiety Felix/Lymph: Denies: easy bruising PFS ED PFSH: Medical History Anticoagulation adequate with anticoagulant therapy Xarelto Atrial fibrillation BPH loc w urin obs/LUTS Cervicalgia of [id number]-[id number]-[id number] region Diabetes 1.5, 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 mellitus H/O prostate cancer HTN (hypertension) Left ureteral calculus Lumbar stenosis Lumbar stenosis with neurogenic claudication Obstructive pyelonephritis Obstructive sleep apnea Refuses CPAP Surgical History H/O esophagogastroduodenoscopy (10/30/21) History of back surgery History of colonoscopy (10/30/21) History of pilonidal cyst S/P appendectomy S/P tonsillectomy S/P ureteral stent placement Status post laser lithotripsy of ureteral calculus Family History Grandmother Cancer MATERNAL Diabetes Grandfather Hypertension MATERNAL Diabetes Mother Lupus Heart disease Stroke Social History Smoking and tobacco status: never smoked Alcohol intake: current Alcohol intake frequency: few times a month Marital status: service: Yes branch: [employer] 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 travel: No Financial difficulty paying for basics: Very Hard Physical Exam Const: COMMON NORMALS: no acute distress, patient oriented x3, no limitations and well nourished GENERAL APPEARANCE: cooperative HENMT: COMMON NORMALS: normocephalic and atraumatic HEAD & SCALP: normocephalic and atraumatic FACE & SINUS: normal facial exam Eye: COMMON NORMALS: EOMs intact bilaterally Neck/C-Spine: COMMON NORMALS: full ROM, no lymphadenopathy, supple and no meningeal signs GENERAL: Yes normal visual inspection Lymph: LYMPHATIC: no lymphadenopathy noted Chest: COMMONS NORMALS: normal inspection of the chest and normal palpation of entire chest wall CHEST: No Ecchymosis present and No rash Resp: COMMON NORMALS: normal respiratory effort, No retractions and clear to auscultation bilaterally EFFORT & INSPECTION: No respiratory distress AUSCULTATION: clear to auscultation bilaterally Cardio: COMMON NORMALS: regular rate, regular rhythm and Peripheral pulses 2+ throughout JUGULAR VENOUS DISTENTION: no JVD RATE: regular rate RHYTHM: regular rhythm PERIPHERAL PULSES: Peripheral pulses 2+ throughout GI: COMMON NORMALS: Normal to inspection, nondistended, normoactive bowel sounds present and non-tender : COMMON NORMALS: Yes no CVA tenderness BLADDER/KIDNEY EXAM: Yes no CVA tenderness Back/Pelvis: COMMON NORMALS: no CVA tenderness Extremity: COMMON NORMALS: normal to inspection, full ROM and capillary refill normal Neuro: COMMON NORMALS: patient oriented x3, CN's II-XII intact bilaterally, no focal motor deficits and no sensory deficits noted MENINGEAL SIGNS: Yes no meningeal signs Psych: COMMON NORMALS: mental status grossly normal and Normal thought process present THOUGHT PROCESS: Normal thought process present Skin: COMMON NORMALS: no rashes or lesions noted GENERAL SKIN EXAM: no rashes or lesions noted OTHER: Well-healed puncture wound to dorsum of left wrist first and second toes. No in creased warmth or cellulitis. No soft tissue swelling. Wound appears well- healed Course Vital Signs: Vital signs: Vital Signs Temperature 97.7 F 12/04/21 10:28 Pulse Rate 69 12/04/21 14:29 Respiratory Rate 16 12/04/21 14:29 Blood Pressure 110/66 12/04/21 14:29 Pulse Oximetry 95 12/04/21 14:29 MDM - Weakness Medical Decision Making generalized fatigue, hypotension, anemia, possible hypothyroidism Lab Data I reviewed the patient's lab results. : 12/04/21 11:48 12/04/21 11:48 Radiology Impressions Chest X-Ray 12/04/21 11:08 Impression: Significant clearing of patchy left lower lobe opacity. Laboratory Results WBC 12.0 10^3/uL (4.0-10.0) H 12/04/21 11:48 RBC 3.96 10^6/uL (4.1-5.3) L 12/04/21 11:48 Hgb 10.8 g/dL (11.7-16.6) L 12/04/21 11:48 Hct 35.4 % (42.0-52.0) L 12/04/21 11:48 MCV 89.4 fl (80-94) 12/04/21 11:48 MCH 27.3 pg (28.0-34.0) L 12/04/21 11:48 MCHC 30.5 g/dL (30.0-36.0) 12/04/21 11:48 RDW 16.2 % (12.1-15.1) H 12/04/21 11:48 Plt Count 251 10^3/cmm (130-400) 12/04/21 11:48 MPV 10.6 fL (7.4-10.4) H 12/04/21 11:48 Neut % (Auto) 62.5 % 12/04/21 11:48 Lymph % (Auto) 27.0 % 12/04/21 11:48 Josephine % (Auto) 5.8 % 12/04/21 11:48 Eos % (Auto) 3.7 % 12/04/21 11:48 Baso % (Auto) 0.7 % 12/04/21 11:48 Neut # (Auto) 7.50 10^3/uL (1.8-7.7) 12/04/21 11:48 Lymph # (Auto) 3.2 10^3/uL (0.8-4.8) 12/04/21 11:48 Josephine # (Auto) 0.7 10^3/uL (0.2-0.9) 12/04/21 11:48 Eos # (Auto) 0.4 10^3/uL (0.0-0.8) 12/04/21 11:48 Baso # (Auto) 0.1 10^3/uL (0.0-0.1) 12/04/21 11:48 Nucleated RBC % (auto) 0 % 12/04/21 11:48 Nucleated RBCs # 0.0 /100WBC 12/04/21 11:48 Sodium 138 mmol/L (136-145) 12/04/21 11:48 Potassium 5.0 mmol/L (3.5-5.1) 12/04/21 11:48 Chloride 97 mmol/L (98-107) L 12/04/21 11:48 Carbon Dioxide 23 mmol/L (22-29) 12/04/21 11:48 Anion Gap 23.0 (5-19) H 12/04/21 11:48 BUN 25 mg/dL (8-23) H 12/04/21 11:48 Creatinine 1.2 mg/dL (0.7-1.2) 12/04/21 11:48 GFR Calculation Not Reportable 12/04/21 11:48 Glucose 209 mg/dL (65-115) H 12/04/21 11:48 Calculated Osmolality 297 mOsm/kg (285-295) H 12/04/21 11:48 Lactate 4.7 mmol/L (0.5-2.2) H* 12/04/21 11:48 Calcium 10.0 mg/dL (8.5-10.5) 12/04/21 11:48 Total Bilirubin 0.4 mg/dL (0.15-1.2) 12/04/21 11:48 AST 18 U/L (0-40) 12/04/21 11:48 ALT 8 U/L (0-41) 12/04/21 11:48 Alkaline Phosphatase 75 IU/L (40-130) 12/04/21 11:48 Troponin T Baseline 49 ng/L (0-15) H 12/04/21 11:48 Troponin T 120 Minute 46.98 ng/L (0-15) H 12/04/21 13:43 Delta Troponin T -2.02 ABS# (0-10) L 12/04/21 13:43 NT-Pro-B Natriuret Pep 482 pg/mL (0-125) H 12/04/21 11:48 Total Protein 6.6 g/dL (6.6-8.7) 12/04/21 11:48 Albumin 3.9 g/dL (3.5-5.2) 12/04/21 11:48 Globulin 2.7 g/dL (1.3-4.6) 12/04/21 11:48 TSH 0.95 uIU/mL (0.27-4.20) 12/04/21 11:48 Urine Color Yellow (Yellow) 12/04/21 13:19 Urine Appearance Cloudy (CLEAR) 12/04/21 13:19 Urine pH 5 (5-7) 12/04/21 13:19 Ur Specific [place] 1.015 (1.005-1.030) 12/04/21 13:19 Urine Protein 1+ (Negative) H 12/04/21 13:19 Urine Glucose (UA) Norm (Normal) 12/04/21 13:19 Urine Ketones Negative (Negative) 12/04/21 13:19 Urine Blood Trace (Negative) H 12/04/21 13:19 Urine Nitrate Negative (Negative) 12/04/21 13:19 Urine Bilirubin Neg (Negative) 12/04/21 13:19 Urine Urobilinogen Norm mg/dL (Negative) 12/04/21 13:19 Ur Leukocyte Esterase 2+ (Negative) H 12/04/21 13:19 Urine RBC None /hpf (0-2) 12/04/21 13:19 Urine WBC 80-100 /hpf (0-5) H 12/04/21 13:19 Ur Squamous Epith Cells None /hpf (0-5) 12/04/21 13:19 Amorphous Sediment Not Reportable 12/04/21 13:19 Urine Bacteria 1+ /hpf (NONE) H 12/04/21 13:19 Digoxin 1.6 ng/mL (0.6-1.2) H 12/04/21 11:48 SARS-CoV-2 Ag (Rapid) Negative (Negative) 12/04/21 11:50 Imaging Data CXR: My impression: Mild atelectasis in the left base Radiologist's impression: Date of Service: 12/04/21 Procedure(s): XR chest 1V portable [id number] Accession Number(s): [id number] Report Number: [id number] WS: [id number] Portable AP upright chest, 12/04/2021 Clinical Data: hypotension; covid 2 wks ago Comparison: Portable chest, 11/17/2021. Findings: No nodules, masses or effusions are seen. The heart is normal. The pulmonary vascularity is not increased. No pneumothorax is seen. There is minimal patchy opacity in the left lower lobe which may represent residual atelectasis or clearing pneumonia. XR/XR chest 1V portable [id number] Impression: Significant clearing of patchy left lower lobe opacity. ? Dictated By: Maryellen Watts MD Signed By: Maryellen Watts MD Signed Date/Time: 12/04/21 1123 EKG Data EKG 1: I personally reviewed and interpreted this EKG as follows: EKG interpretation date: 12/04/21 EKG interpretation time: 11:36 Interpretation: EKG shows normal sinus rhythm with right bundle branch block. Borderline first- degree AV block. Nonspecific ST-T changes. Normal axis. Normal P waves. Normal T waves. Low voltage. No change from previous EKG on 10/03/2021 Other Data 1440: Discussed with hospitalist Dr. Colon. Place patient in observation te lemetry bed. Discharge Plan Discharge Patient Disposition: Placed in Observation Clinical Impression: Chronic hypotension, Acidosis, lactic, Acute UTI (urinary tract infection) Coding Level of Care Code ED Tunnel Heading Inspector for Chg Fwd Exam Comprehensive
--- NOTE | 2021-12-04 11:07 | ECG_ITS ---
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 Measurements Intervals [place] Rate: 76 P: 21 AL: 186 QRS: 66 QRSD: 126 T: 30 QT: 380 QTc: 429 Interpretive Statements SINUS RHYTHM RIGHT BUNDLE BRANCH BLOCK [120+ ms QRS DURATION, UPRIGHT V1, 40+ ms S IN I/aVL/V4/V5/V6] Compared to ECG 10/03/2021 18:26:30 No significant changes Electronically Signed On 12-04-2021 15:59:50 HEMSTITCHER by Aleks Narvaez M.D. [id number]
[2021-12-04] MEDS: sodium chloride 0.9% 1,000 ML 999 ML IV (11:45)
[2021-12-04 12:08] LABS: Basophils # 0.1 10^3/uL (0.0-0.1); Basophils % 0.7 %; Eosinophils # 0.4 10^3/uL (0.0-0.8); Eosinophils % 3.7 %; Hematocrit 35.4 % (42.0-52.0); Hemoglobin 10.8 g/dL (11.7-16.6); Lymphocytes # 3.2 10^3/uL (0.8-4.8); Mean Corpuscular HGB Conc 30.5 g/dL (30.0-36.0); Mean Corpuscular Hemoglobin 27.3 pg (28.0-34.0); Mean Corpuscular Volume 89.4 fl (80-94); Mean Platelet Volume 10.6 fL (7.4-10.4); Monocytes # 0.7 10^3/uL (0.2-0.9); Monocytes % 5.8 %; Neutrophils % 62.5 %; Nucleated Red Blood Cells % 0 %; Platelet Count 251 10^3/cmm (130-400); Red Blood Count 3.96 10^6/uL (4.1-5.3); Red Cell Distribution Width 16.2 % (12.1-15.1)
[2021-12-04 12:35] LABS: Lactate (Lactic Acid level) 4.7 mmol/L (0.5-2.2); Troponin(5th) Baseline 49 ng/L (0-15)
[2021-12-04 12:38] LABS: SARS Covid-2 Antigen Negative (Negative)
[2021-12-04 12:45] LABS: Alanine Aminotransferase 8 U/L (0-41); Albumin Level 3.9 g/dL (3.5-5.2); Alkaline Phosphatase 75 IU/L (40-130); Blood Urea Nitrogen 25 mg/dL (8-23); Carbon Dioxide 23 mmol/L (22-29); Chloride 97 mmol/L (98-107); Globulin 2.7 g/dL (1.3-4.6); Glucose 209 mg/dL (65-115); NT Pro B Type Natriuretic Pept 482 pg/mL (0-125); Osmolality Calculated 297 mOsm/kg (285-295); Sodium 138 mmol/L (136-145); Thyroid Stimulating Hormone 0.95 uIU/mL (0.27-4.20); Total Bilirubin 0.4 mg/dL (0.15-1.2); Total Protein 6.6 g/dL (6.6-8.7)
[2021-12-04 12:48] LABS: Aspartate Amino Transferase 18 U/L (0-40)
[2021-12-04 13:02] LABS: Digoxin 1.6 ng/mL (0.6-1.2)
[2021-12-04 13:33] LABS: Bilirubin Urine Neg (Negative); Blood Urine Trace (Negative); Glucose Urine UA Norm (Normal); Ketones Urine Negative (Negative); Leukocyte Esterase Urine 2+ (Negative); Nitrate Urine Negative (Negative); Protein Urine 1+ (Negative); Specific Gravity, Urine 1.015 (1.005-1.030); Urine Appearance Cloudy (CLEAR); Urine Color Yellow (Yellow); Urobilinogen Urine Norm (Negative); pH Urine 5 (5-7)
[2021-12-04] MEDS: cefTRIAXone 2,000 MG in sodium chloride 0.9% (plus) 50 ML 100 MG IV (13:52)
[2021-12-04 13:53] LABS: Add Urine Culture? Yes; Bacteria Urine 1+ /hpf; WBC Urine 80-100 /hpf (0-5)
[2021-12-04] MEDS: sodium chloride 0.9% 1,000 ML 500 ML IV (13:53)
[2021-12-04] MEDS: sodium chloride 0.9% 250 ML IV (13:53)
[2021-12-04] MEDS: sodium chloride 0.9% 500 ML IV (13:53)
[2021-12-04 14:29] LABS: Troponin 5 2HR 46.98 ng/L (0-15)
[2021-12-04 14:30] LABS: Troponin 5 2HR Delta -2.02 ABS# (0-10)
--- NOTE | 2021-12-04 15:09 | P.HP_ITS ---
Providers/Chief Complaint Admitting Physician: Itzel Colon MD Primary Care Provider: Trisha Urena MD Chief Complaint: HYPOTENSION History of Present Illness Raphael Deal is a 71 year old male who presented to the emergency room directly from wound care clinic because of dizziness and a blood pressure 90s over 50s. He was moving from table to wheelchair or wheelchair to table when he became dizzy. He says that he has problems with dizziness not infrequently and that it has progressively worsened over the last few months. Dizziness is a sensation of the room spinning. He does have frequent falls if he attempts to get up and reports that his legs will not hold him. The symptoms have also been progressively worsening over the last 6 to 9 months ever since he started having problems with his back by his description. Beyond the dizziness today, he does not have any other specific complaints. When specifically questioned he does say that he has some pain in his right hip but it is a chronic pain to some degree, exacerbated by a fall either yesterday or today. If wound care clinic had not directed him to go to the emergency room for evaluation, he does not th ink that he would have come. On arrival to the emergency room heart rate was in the low 100s briefly. Blood pressure was 90s over 50s. Work-up ensued that identified leukocytosis without left shift, stable hemoglobin, elevated digoxin level, elevated lactic acid level, normal blood sugars and elevated BUN and creatinine from recent values, as well as an abnormal urinalysis with leukocytosis and bacteriuria described. It should be noted that patient was hospitalized here from end of September to October with obstructive pyelonephritis. He was identified as having an obstructive stone and had left ureteral stent placement. This was subsequently removed and lithotripsy was performed by Dr. Paul at the beginning of November. Patient had had a Villanueva catheter for a while that appears to been placed for urinary retention at skilled facility, but was transitioned to self-catheterization every 6 hours at home and reports doing well with that over the last month. He has been on Levaquin and fluconazole a couple of times over the last 2 months for urinary coverage. He does have a known history of BPH and takes Flomax. In mid November after being found with decreased responsiveness at home, patient was seen in the emergency room. At the time was noted to have blood sugar as cause for decreased responsiveness. While in the emergency room was noted to have low-grade temperatures and complained of some weakness. COVID PCR was done and ended up coming back positive from a 11/17/2021 swab. Patient denies any respiratory symptoms to speak of and denies having had ongoing fever or other issues. He self isolated. He has not had COVID vaccine. He is on chronic anticoagulation due to history of atrial fibrillation and reports compliant with this medication along with others. His blood sugars were not low today. He is pretty sure he took his antihypertensives that include Lasix and lisinopril and also took his antiarrhythmic sotalol today though a little difficult to get specifics. With recent history and abnormalities found, patient is being admitted for fur ther evaluation and treatment. He received fluid bolus and empiric Rocephin in the ER. Review of Systems Const: Reports: fatigue; Denies: fever(s) or chills Eyes: Denies: change in vision ENMT: Reports: throat pain (Sometimes, not currently, thinks due to dry mouth) and dry mouth; Denies: nasal congestion Card: Reports: edema (Sometimes has swelling in his legs but not recently) and lightheadedness; Denies: chest pain or palpitations Resp: Denies: dyspnea, productive cough, non-productive cough, pain on inspiration or chest congestion GI: Reports: diarrhea (After taking something for constipation), constipation and other (Describes his stool as always red but denies blood in stool); Denies: abdominal pain, nausea or vomiting : Reports: urinary incontinence (None currently but had had for a while before catheter placed) and other (Self-catheterization); Denies: flank pain, urinary dribbling or hematuria Musc: Reports: back pain, extremity pain (Right hip and leg more so than left), muscle cramps, muscle weakness and decrease in muscle mass Skin/Breast: Reports: other (Wound to left foot has healed up); Denies: rash, pruritus or sores (Denies other ulcers or pressure injuries) Neuro: Reports: headache(s), numbness in extremities, weakness in extremities, lack of coordination, difficulty walking, frequent falls and dizziness Psych: Denies: anxiety or depression Felix/Lymph: Reports: easy bruising Medications/Allergies Home Medications Medication Instructions Recorded Confirmed Last Taken Type cholecalciferol (vitamin D3) 25 See Rx Instructions .ROUTE .COMPLEX 0212/04/21 12/04/21 History mcg (1,000 unit) capsule (Vitamin D3) digoxin 250 mcg (0.25 mg) tablet 250 mcg PO QAM 11/07/19 12/04/21 12/04/21 History omega-3 fatty acids 1,000 mg 1,000 mg PO BID 11/07/19 12/04/21 03/19/21 History capsule (Fish Oil Concentrate) fluticasone propionate 50 2 spray INTRANASAL DAILY PRN 05/07/20 12/04/21 Unknown History mcg/actuation nasal spray,suspension (Flonase Allergy Relief) gabapentin 800 mg tablet 800 mg PO TID 05/07/20 12/04/21 12/04/21 08:00 History sotalol 160 mg tablet 80 mg PO BID 05/07/20 12/04/21 12/04/21 History water aerobics #1 ea 05/09/21 12/04/21 Unknown Rx metformin 1,000 mg tablet 1,000 mg PO BID 08/23/21 12/04/21 12/04/21 History insulin aspart U-100 100 unit/mL See Rx Instructions .ROUTE 08/30/21 12/04/21 12/03/21 23:00 Rx (3 mL) subcutaneous pen (Novolog .COMPLEX #15 ml 20 units Flexpen U-100 Insulin aspart) albuterol sulfate 90 mcg/actuation 2 puff INHALATION Q4H PRN 10/03/21 12/04/21 Unknown History aerosol inhaler (ProAir HFA) fluticasone 100 mcg-salmeterol 50 1 inh INHALATION BID 10/03/21 12/04/21 Unknown History mcg/dose blistr powdr for inhalation (Wixela Inhub) lisinopril 40 mg tablet 20 mg PO QAM 10/03/21 12/04/21 12/04/21 History hydrocodone 5 mg-acetaminophen 325 1 tab PO Q6H PRN 4 Days #15 tab 11/01/21 12/04/21 12/03/21 21:00 Rx mg tablet furosemide 20 mg tablet 20 mg PO BID 11/05/21 12/04/21 12/04/21 History cranberry 2 cap PO DAILY 12/04/21 12/04/21 Unknown History insulin glargine 100 unit/mL (3 20 unit SUBCUT BEDTIME PRN 12/04/21 12/04/21 12/03/21 History mL) subcutaneous pen (Lantus Solostar U-100 Insulin) rivaroxaban 15 mg tablet (Xarelto) 15 mg PO BEDTIME 12/04/21 12/04/21 12/03/21 History rosuvastatin 40 mg tablet 20 mg PO BEDTIME 12/04/21 12/04/21 12/03/21 History tamsulosin 0.4 mg capsule 0.4 mg PO BEDTIME 12/04/21 12/04/21 12/03/21 History Allergies Allergy/AdvReac Type Severity Reaction Status Date / Time No Known Allergies Allergy Verified 11/17/21 19:51 PFSH Acute PFSH: Medical History (Updated 12/04/21 @ 19:40 by Itzel Colon MD) Anemia Atrial fibrillation BPH loc w urin obs/LUTS Cervicalgia of zhdcaftx-wsiubuq-bhvyc region Chronic anticoagulation Xarelto secondary to atrial fibrillation Diabetes mellitus, type II Diabetic foot ulcer 08/2021 - treated with I&D, antibiotics and wound care clinic management 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 mellitus H/O prostate cancer History of cardiovascular stress test 05/2021 normal EKG response, perfusion study without findings of ischemia History of Doppler ultrasound 08/2021 venous no DVT BLE 08/2021 arterial patent vessels, left posterior tibial may be less than 60% stenosis, left dorsalis pedis not visualized History of echocardiogram 05/2021 EF 65% History of electromyography 01/23 Interpretation: The study provides electrodiagnostic evidence for an axonal sensorimotor polyneuropathy based on small or absent CMAPs and SNAPs with denervation seen distally on EMG. The study is limited for evaluation of lumbar radiculopathy related to the patient's anticoagulated state. History of sleep study 02/22 limited sleep, no apnea noted but did have nocturnal hypoxemia, recommended to use nocturnal oxygen HTN (hypertension) previously on treatment for high blood pressure Intermittent self-catheterization of bladder due to urinary retention Left ureteral calculus Lumbar stenosis L2/3, L3/4, L4/L5, with radiculopathy right lower extremity Lumbar stenosis with neurogenic claudication Obstructive pyelonephritis 09/2021 required ureteral stent placement Obstructive sleep apnea Refuses CPAP SARS-CoV-2 positive positive test 11/17/2021 symptoms weakness, hypoglycemia, altered mental status and low grade fever Surgical History (Updated 12/04/21 @ 18:18 by Itzel Colon MD) H/O esophagogastroduodenoscopy (10/30/21) 10/2021 pedunculated polyps removed from first portion of duodenum, otherwise normal History of back surgery History of colonoscopy (10/30/21) 11/2021 diverticulosis of sigmoid colon and internal hemorrhoids, sessile polyps removed History of laminectomy 03/25 bilateral with partial facetectomies at L2-3, L3-4, L4-[address] Smith History of pilonidal cyst Other postprocedural status history of radiofrequency ablation for back pain x 2 S/P appendectomy S/P tonsillectomy S/P ureteral stent placement (09/2021) subsequent removal Status post excisional debridement 08/2021 left foot Status post laser lithotripsy of ureteral calculus (11/06/21) Family History (Updated 12/04/21 @ 18:20 by Itzel Colon MD) Grandmother Heart disease Hypertension Grandfather Hypertension MATERNAL Diabetes Mother No problems noted. 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 Financial difficulty paying for basics: Very Hard Vitals/I&O/Wt Last Vital Signs Temp 97.7 F 12/04/21 10:28 Pulse 69 12/04/21 14:29 Resp 16 12/04/21 14:29 BP 110/66 12/04/21 14:29 Pulse Ox 95 12/04/21 14:29 12/04/21 12/04/21 12/04/21 06:59 14:59 22:59 Intake Total 1000 / 1000 Balance 1000 / 1000 Weight last 48 hrs Weight 88.451 kg Physical Exam Narrative: Constitutional: Awake and alert, chronic ill appearance, cooperative HEENT: Normocephalic, atraumatic, extraocular movements intact, nasopharynx is clear, oropharynx with very dry mucous membranes but otherwise clear Neck: Supple Respiratory: Clear to auscultation bilaterally without any rales rhonchi or wheezes noted Cardiovascular: Regular rate and rhythm, no JVD, 1+ distal pulses in the feet, 2+ in the wrist, no murmurs gallops or rubs Abdomen: Soft, nontender, positive but decreased bowel sounds : Inconsistent right flank tenderness, mild erythema in the groin, normal external genitalia Extremities: No pitting edema, no cyanosis or mottling, no calf tenderness, musculature not painful to palpation in the large muscles, tenderness to palpation of the right greater trochanter region, less so on the left Skin: Dry, abrasions in different stages of healing along with some older bruising to lower extremities most notable in the right carroll Neuro: Speech is clear, face symmetric, handgrip is equal, strength is equal but decreased in both lower extremities compared to upper extremities, right more so than left, toes downgoing, no abnormal movements noted, muscle wasting appreciated Psych: Normal affect, poor recall of finer details Data : 12/04/21 11:48 12/04/21 11:48 Other Labs: Radiology Impressions Chest X-Ray 12/04/21 11:08 Impression: Significant clearing of patchy left lower lobe opacity. Laboratory Results WBC 12.0 10^3/uL (4.0-10.0) H 12/04/21 11:48 RBC 3.96 10^6/uL (4.1-5.3) L 12/04/21 11:48 Hgb 10.8 g/dL (11.7-16.6) L 12/04/21 11:48 Hct 35.4 % (42.0-52.0) L 12/04/21 11:48 MCV 89.4 fl (80-94) 12/04/21 11:48 MCH 27.3 pg (28.0-34.0) L 12/04/21 11:48 MCHC 30.5 g/dL (30.0-36.0) 12/04/21 11:48 RDW 16.2 % (12.1-15.1) H 12/04/21 11:48 Plt Count 251 10^3/cmm (130-400) 12/04/21 11:48 MPV 10.6 fL (7.4-10.4) H 12/04/21 11:48 Neut % (Auto) 62.5 % 12/04/21 11:48 Lymph % (Auto) 27.0 % 12/04/21 11:48 Edmunds % (Auto) 5.8 % 12/04/21 11:48 Eos % (Auto) 3.7 % 12/04/21 11:48 Baso % (Auto) 0.7 % 12/04/21 11:48 Neut # (Auto) 7.50 10^3/uL (1.8-7.7) 12/04/21 11:48 Lymph # (Auto) 3.2 10^3/uL (0.8-4.8) 12/04/21 11:48 Edmunds # (Auto) 0.7 10^3/uL (0.2-0.9) 12/04/21 11:48 Eos # (Auto) 0.4 10^3/uL (0.0-0.8) 12/04/21 11:48 Baso # (Auto) 0.1 10^3/uL (0.0-0.1) 12/04/21 11:48 Nucleated RBC % (auto) 0 % 12/04/21 11:48 Nucleated RBCs # 0.0 /100WBC 12/04/21 11:48 Sodium 138 mmol/L (136-145) 12/04/21 11:48 Potassium 5.0 mmol/L (3.5-5.1) 12/04/21 11:48 Chloride 97 mmol/L (98-107) L 12/04/21 11:48 Carbon Dioxide 23 mmol/L (22-29) 12/04/21 11:48 Anion Gap 23.0 (5-19) H 12/04/21 11:48 BUN 25 mg/dL (8-23) H 12/04/21 11:48 Creatinine 1.2 mg/dL (0.7-1.2) 12/04/21 11:48 GFR Calculation Not Reportable 12/04/21 11:48 Glucose 209 mg/dL (65-115) H 12/04/21 11:48 Calculated Osmolality 297 mOsm/kg (285-295) H 12/04/21 11:48 Lactate 4.7 mmol/L (0.5-2.2) H* 12/04/21 11:48 Calcium 10.0 mg/dL (8.5-10.5) 12/04/21 11:48 Total Bilirubin 0.4 mg/dL (0.15-1.2) 12/04/21 11:48 AST 18 U/L (0-40) 12/04/21 11:48 ALT 8 U/L (0-41) 12/04/21 11:48 Alkaline Phosphatase 75 IU/L (40-130) 12/04/21 11:48 Troponin T Baseline 49 ng/L (0-15) H 12/04/21 11:48 Troponin T 120 Minute 46.98 ng/L (0-15) H 12/04/21 13:43 Delta Troponin T -2.02 ABS# (0-10) L 12/04/21 13:43 NT-Pro-B Natriuret Pep 482 pg/mL (0-125) H 12/04/21 11:48 Total Protein 6.6 g/dL (6.6-8.7) 12/04/21 11:48 Albumin 3.9 g/dL (3.5-5.2) 12/04/21 11:48 Globulin 2.7 g/dL (1.3-4.6) 12/04/21 11:48 TSH 0.95 uIU/mL (0.27-4.20) 12/04/21 11:48 Urine Color Yellow (Yellow) 12/04/21 13:19 Urine Appearance Cloudy (CLEAR) 12/04/21 13:19 Urine pH 5 (5-7) 12/04/21 13:19 Ur Specific Somers 1.015 (1.005-1.030) 12/04/21 13:19 Urine Protein 1+ (Negative) H 12/04/21 13:19 Urine Glucose (UA) Norm (Normal) 12/04/21 13:19 Urine Ketones Negative (Negative) 12/04/21 13:19 Urine Blood Trace (Negative) H 12/04/21 13:19 Urine Nitrate Negative (Negative) 12/04/21 13:19 Urine Bilirubin Neg (Negative) 12/04/21 13:19 Urine Urobilinogen Norm mg/dL (Negative) 12/04/21 13:19 Ur Leukocyte Esterase 2+ (Negative) H 12/04/21 13:19 Urine RBC None /hpf (0-2) 12/04/21 13:19 Urine WBC 80-100 /hpf (0-5) H 12/04/21 13:19 Ur Squamous Epith Cells None /hpf (0-5) 12/04/21 13:19 Amorphous Sediment Not Reportable 12/04/21 13:19 Urine Bacteria 1+ /hpf (NONE) H 12/04/21 13:19 Digoxin 1.6 ng/mL (0.6-1.2) H 12/04/21 11:48 SARS-CoV-2 Ag (Rapid) Negative (Negative) 12/04/21 11:50 Micro: Microbiology 12/04/21 13:43 Blood Culture - Preliminary Blood SPECIMEN COLLECTED 12/04/21 12:39 Blood Culture - Preliminary Blood SPECIMEN COLLECTED A&P Assessment and plan (1) Dizziness: Associated with position change. Found to have associated blood pressures around 90/50. From what I can gather this has been a progressively worsening problem over time. There are notations with similar complaints as far back as early 2019 and mentions of adjustment in medications likely contributing. Sounds like it has been difficult to get a clear idea due to patient having [place] [facility] provider [place] and specialist providers here. This has been further challenged by the fact that he has had recurrent medical issues necessitating hospitalization and additional specialty care for the last 6 to 9 months. He has significant weakness and gait instability and activity level has progressively worsened. He is a known diabetic. Suspect that there is both an autonomic component as well as potential medication component causing positional orthostasis. If things have been left to the patient he does not think that he would have come to the emergency room because his symptoms have become something that he is just accustomed to. Challenge with work-up today is that he was found to have associated white count at 12,000, lactic acid at 4.7, digoxin level at 1.6 and a creatinine at 25 which is about double his baseline. He denies recent new urinary symptoms. He describes some diarrhea though it appears it was after being constipated for a bit and taking some medication to relieve that. He denies any upper respiratory symptoms. He did have a positive Covid test in mid November with short duration of symptoms that appeared more related to hypoglycemia at the time. He is chronically on anticoagulation because of a known history of atrial fibrillation but no acute arrhythmia beyond shortly transitive tachycardia has been noted today. He is chronically on sotalol. QT interval is not significantly prolonged on EKG today. There are some nonspecific EKG changes on initial EKG. Serial troponins with downward trending delta. Medications that might contribute to dizziness include digoxin, particularly with toxic level, Flomax, pain medication and antihypertensives including diuretics. Status: Acute (2) Hypotension: Orthostatic and appears to be a progressively worsening problem over the last 6 to 9 months as his ability to ambulate or even stand upright has lessened over time Status: Acute Qualifiers: Hypotension type: orthostatic hypotension Qualified Code(s): I95.1 - Orthostatic hypotension (3) Acidosis, lactic: Noted on initial work-up in the emergency room, repeat values not ordered at presentation, while could be elevated due to infectious process, patient is not that acutely ill-appearing, more chronically ill appearing and without significant new complaints today making interpretation more challenging at this single point in time. Differential includes infection, medications, renal failure, decreased tissue perfusion among others. Status: Acute (4) Abnormal urinalysis: In a patient with a history of recent ureteral stent placement, subsequent removal and lithotripsy for large obstructing stone. He had obstructive p yelonephritis in October of this year. In the past month or so he has been treated with Levaquin and Diflucan for urinary issues according to records reviewed. Last appointment with Dr. Paul was on 11/06/2021. Review of culture specimens lately shows the followin11/17/2021: urine no growth final 11/06/2021: urine with diphtheroids >100,000 cfus 10/06/2021: blood no growth final 10/05/2021: urine marci tropicalis > 100,000 cfus 10/03/2021: urine marci tropicalis > 100,000 cfus 10/03/2021: blood culture 10/07 bottles, when he had the obstructive pyelonephritis grew out a gram-negative emlissa that was identified by [facility] as [place] SP, closely related to [place] varians (resisitent to aztreonam but sensitive to other antibiotics tested, CAMILO for amikacin and zosyn </=8, for rocephin </= 0.5) Status: Acute (5) Intermittent self-catheterization of bladder: Appears to have been started in the last couple of months based on my review of records, patient denies any difficulties, does increased risk of infection Status: Chronic (6) BPH loc w urin obs/LUTS: On flomax chronically Status: Chronic (7) Diabetes mellitus, type II: Chronically on Lantus and sliding scale plus Metformin Chronically on gabapentin for neuropathy Status: Chronic Qualifiers: Diabetes mellitus intermediate teacher insulin use: with fci use Diabetes mellitus complication status: with neurologic complications Diabetes mellitus complication detail: with polyneuropathy Qualified Code(s): E11.42 - Type 2 diabetes mellitus with diabetic polyneuropathy; Z79.4 - intermediate teacher (current) use of insulin (8) Atrial fibrillation: On chronic sotalol and digoxin, in sinus rhythm, is on chronic anticoagulation Status: Chronic Qualifiers: Atrial fibrillation type: paroxysmal Qualified Code(s): I48.0 - Paroxysmal atrial fibrillation (9) Chronic anticoagulation: On Xarelto due to above Status: Chronic (10) Anemia: Stable hemoglobin Status: Chronic Qualifiers: Anemia type: other cause Other causes of anemia: chronic disease, other Qualified Code(s): D63.8 - Anemia in other chronic diseases classified elsewhere (11) Lumbar stenosis: L2-3?4?5, status post laminectomy with partial facetectomy in the summer 2020, never regained ability to walk or noted much improvement in paresthesias/numbness to the lower extremities by his report Qualifiers: Neurogenic claudication status: unspecified Qualified Code(s): M48.061 - Spinal stenosis, lumbar region without neurogenic claudication (12) Gait instability: Has access to a walker and wheelchair, legs do not support him in a standing position much at all at his current baseline. Multifactorial from neuropathy, lumbar spine issues, deconditioning. Status: Acute Plan Patient has some inhaled medications for diagnosis but I am uncertain of at this time, denies tobacco use, does have known nocturnal hypoxemia and sleep apnea but has declined use of CPAP or oxygen at night. Hyperipidemia on statin therapy Healed diabetic foot ulcer Observation admission Continue IV fluids Recheck lactic acid, check CRP and pro calcitonin Received empiric Rocephin in the emergency room Blood and urine cultures have been collected Check KUB Self catheterization as needed Check stool for c diff Continue home sotalol Telemetry monitoring Complete serial cardiac enzymes Repeat EKG Hold home Lasix and lisinopril, would recommend decrease in dose of lisinopril to 2.5 or 5 mg daily, either once daily dosing of Lasix or a trial of holding diuretics Hold home digoxin, it is not clear to me that he definitively needs this medication resumed based on presently available information in the chart and from history, he had been on this prior to introduction of sotalol by Dr. Klein Patient is strongly encouraged to bring his actual medications with him to all appointments and emergency visits both [facility] and [facility] in the future to help ensure the accuracy of documentation of current medication list in all care areas and minimize unintended mediation effect contributing to medical conditions Continue home Xarelto which covers VTE prophylaxis Continue statin therapy Check CK level Continue home gabapentin and hydrocodone Continue home flomax at night, may have to consider alternatives if dizziness and orthostasis continue to be significant problem PT/OT eval and treat Of care otherwise Findings, concerns and plans were discussed with patient and he was given opportunity to ask questions Currently anticipate discharge back home with his daughter Full code per discussion with patient, although he would not want life- sustaining measures for more than 30 days by his description Attestations Medical Necessity Statement*: Currently anticipate a stay less than two midnights in a patient presenting with dizziness/orthostasis at wound care clinic today that was primarily positional in nature. He has had issues with similar symptoms for quite some time that are documented in the medical record. Difficult to ascertain exactly what is new today versus previous. Work-up in the emergency room revealed elevated lactic acid, some increase in white count, elevated digoxin level and elevated BUN from baseline. Patient does not currently appear septic though it is within the differential, particularly given his recent kidney stones and obstructive pyelonephritis necessitating ureteral stent, subsequent removal and lithotripsy within the past couple of months. Also increasing the potential for infection is the fact that he does do self-catheterization regularly. Arrhythmia within the differential but seems less likely to me at this time. Primary consideration is likely medication effect plus progressive autonomic dysfunction in a known diabetic with limited mobility as described. Plan is to monitor him overnight, follow serial labs, treat with IV fluids and empiric antibiotics watching response. Other plans are as noted above. Given comorbid conditions and recent history at high risk of rapid clinical decline without close monito ring and care in the hospital setting at this point in time. 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 [employer] Diagnoses Dizziness R42 Hypotension I95.1 Hypotension type: orthostatic hypotension Acidosis, lactic E87.2 Abnormal urinalysis R82.90 Intermittent self-catheterization of bladder Z78.9 Diabetes mellitus, type II E11.42; Z79.4 Diabetes mellitus fci insulin use: with fci use Diabetes mellitus complication status: with neurologic complications Diabetes mellitus complication detail: with polyneuropathy Atrial fibrillation I48.0 Atrial fibrillation type: paroxysmal Chronic anticoagulation Z79.01 Lumbar stenosis M48.061 Neurogenic claudication status: unspecified BPH loc w urin obs/LUTS N40.1 Gait instability R26.81 Anemia D63.8 Anemia type: other cause Other causes of anemia: chronic disease, other
--- NOTE | 2021-12-04 17:03 | PC.NURSE ---
Patient AAOx4, weak, uses walker at home as a wheelchair. Patient has scabs and bruises on legs and scaly skin, blanchable erythrema on coccyx. C/o diarrhea some pain in legs. Daughter caths patient Q6H.
[2021-12-04 18:00] LABS: Glucose Point of Care 160 mg/dL (70-110)
--- NOTE | 2021-12-04 18:30 | XR_ITS ---
WS: [email or web address] KUB, AP view, 12/04/2021 Clinical Data: history of stone/stent recently Comparison: KUB, 11/01/2021 Findings: No abnormal intraabdominal masses or calcifications are seen. There is no dilatated small bowel or ev idence of obstruction. The left ureteral stent is no longer in position. The proximal left ureteral calculus is not seen. Th ere is osteoarthritis at the L2-L3 level. XR/XR KUB [id number] Impression: Negative KUB.
--- NOTE | 2021-12-04 18:30 | XR_ITS ---
WS: [email or web address] Pelvis, AP view, 12/04/2021 Clinical Data: pain right hip Comparison: Pelvis and right hip, 11/06/2021. Findings: No fractures or dislocations are seen. The SI joints and pubic symphysis are intact. The soft tissues are not remarkable. The right hip shows osteoarthritic change with a prominent acetabular spur. Ther e is minimal osteoarthritis left hip with an acetabular spur. The left urinary/ureteral catheter is no longer present. XR/XR pelvis 1-2V* [id number] Impression: 1. Negative for pelvic or hip fracture. 2. Osteoarthritis of both hips.
[2021-12-04] MEDS: sodium chloride 0.9% 1,000 ML 100 ML IV (18:32)
[2021-12-04 20:34] LABS: Platelet Count 251 10^3/cmm (130-400)
[2021-12-04 20:35] LABS: Glucose Point of Care 164 mg/dL (70-110)
[2021-12-04 20:48] LABS: Ketone (Acetest) Serum Positive (Negative)
[2021-12-04 20:51] LABS: Lactate (Lactic Acid level) 1.8 mmol/L (0.5-2.2)
[2021-12-04 20:55] LABS: Troponin 5 6HR 52.42 ng/L (0-15)
[2021-12-04 20:56] LABS: Troponin 5 6HR Delta 3.42 ng/L (0-12)
[2021-12-04 20:57] LABS: C Reactive Protein 10.7 mg/L (0.0-4.9)
[2021-12-04 20:59] LABS: INR 1.38 (0.8-1.2)
[2021-12-04 21:00] LABS: Partial Thromboplastin Time 33.6 SECONDS (23.9-36.7)
[2021-12-04 21:06] LABS: Fibrinogen 469 mg/dL (174-498)
[2021-12-04 21:14] LABS: Vitamin B12 339 pg/mL (232-1245)
[2021-12-04] MEDS: pyridostigmine 60 mg Tablet 30 MG PO (21:55)
[2021-12-04] MEDS: atorvastatin 40 mg Tablet 80 MG PO (21:56)
[2021-12-04] MEDS: rivaroxaban 10 mg Tablet 15 MG PO (21:57)
[2021-12-04] MEDS: tamsulosin 0.4 mg Capsule PO (21:57)
[2021-12-04] MEDS: gabapentin 300 mg Capsule 600 MG PO (21:57)
[2021-12-04] MEDS: sotalol 80 mg Tablet PO (21:59)
[2021-12-04] MEDS: insulin glargine 100 units/1 mL 10 UNIT SUBCUT (22:09)
[2021-12-04] MEDS: insulin lispro 100 unit/1 mL SUBCUT (22:09)
[2021-12-05] VITALS (8 sets, daily range): BP systolic 113–138; BP diastolic 71–81; PULSE 59–73; RESP 16–22; TEMP 36.4–37.2; O2SAT 95–98
[2021-12-05 03:35] LABS: Basophils # 0.1 10^3/uL (0.0-0.1); Basophils % 0.9 %; Eosinophils # 0.4 10^3/uL (0.0-0.8); Hematocrit 31.1 % (42.0-52.0); Hemoglobin 9.5 g/dL (11.7-16.6); Lymphocytes # 2.1 10^3/uL (0.8-4.8); Lymphocytes % 25.2 %; Mean Corpuscular HGB Conc 30.5 g/dL (30.0-36.0); Mean Corpuscular Volume 88.4 fl (80-94); Mean Platelet Volume 10.7 fL (7.4-10.4); Monocytes # 0.6 10^3/uL (0.2-0.9); Monocytes % 7.4 %; Neutrophils # 5.02 10^3/uL (1.8-7.7); Neutrophils % 61.3 %; Nucleated Red Blood Cells % 0 %; Platelet Count 177 10^3/cmm (130-400); Red Blood Count 3.52 10^6/uL (4.1-5.3); Red Cell Distribution Width 16.2 % (12.1-15.1); White Blood Count 8.2 10^3/uL (4.0-10.0)
[2021-12-05 03:58] LABS: Anion Gap 13.9 (5-19); Blood Urea Nitrogen 21 mg/dL (8-23); Calcium 8.5 mg/dL (8.5-10.5); Carbon Dioxide 26 mmol/L (22-29); Chloride 105 mmol/L (98-107); Glucose 184 mg/dL (65-115); Osmolality Calculated 300 mOsm/kg (285-295); Potassium 3.9 mmol/L (3.5-5.1); Sodium 141 mmol/L (136-145)
[2021-12-05 03:59] LABS: Digoxin 1.6 ng/mL (0.6-1.2); Magnesium 1.5 mg/dL (1.7-2.3); Phosphorus 3.5 mg/dL (2.5-4.5)
[2021-12-05 04:02] LABS: Creatine Phosphokinase 36 U/L (39-308)
[2021-12-05 07:46] LABS: Glucose Point of Care 176 mg/dL (70-110)
[2021-12-05] MEDS: insulin lispro 100 unit/1 mL SUBCUT ×3 (09:57→17:24)
[2021-12-05] MEDS: gabapentin 300 mg Capsule 600 MG PO ×3 (09:58→21:33)
[2021-12-05] MEDS: sotalol 80 mg Tablet PO ×2 (09:58→21:37)
[2021-12-05] MEDS: pyridostigmine 60 mg Tablet 30 MG PO ×3 (09:58→21:34)
--- NOTE | 2021-12-05 11:43 | PC.CHAP ---
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 [] Patient/Family/Request visit [] Outpatient visit [] Follow-up visit [] Physician referral [] Code/Alert [x] Routine visit [] Staff referral [] Actively dying [] Patient sleeping [] Family support [] [] Out of room [] Palliative care [] [x] Receiving care in room [] Pre-surgical visit [] Trauma [x] Long length of stay [] ICU visit [] Other: Relational/Emotional Strength [x] Patient feels connected with others/family/visitors/staff [x] Distress [] Loneliness/isolation [] Abandonment Spirituality of Patient [] Person of Melva [] Attends Roman Catholic of their Melva [] Believes in Prayer [] Reads Bible or Mosque materials [] There are Spiritual issues to be addressed 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 [] Prayer [] Active listening [] Non-anxious presence [] Spiritual/emotional support [] Crisis/trauma care [] Spiritual counseling [] Bereavement support [] Provided bereavement packet [] Provided Bible/devotional materials [] Provided toy/stuffed animal, coloring book to patient or family member [] Provided Communion [] Anointing/[place] [] Salvation [] Completed spiritual assessment [] Other: Impact on Illness or Injury [] Angry [] Fearful [] Anxious [] Often cries [] Exhaustion [x] Unable to work [] Unable to attend orthodox [] Unable to walk/stand [] Unable to read [] Unable to drive [] Unable to eat/drink [] Unable to sleep [] Unable to be with family [] Patient intubated [] Other: Summary feeling better not sure about his health or what needs to be done Time spent with patient 10 mins
[2021-12-05 12:19] LABS: Glucose Point of Care 269 mg/dL (70-110)
--- NOTE | 2021-12-05 14:04 | PM.PN ---
Subjective Subjective: H&P reviewed, my concern is related to Metformin toxicity and myasthenia gravis Patient is stating that after taking few steps his right leg feels like a jelly, floppy leg which gets better at rest He has been experiencing dysphagia and feels like food gets stuck in his throat, he gets tired chewing food I have started pyridostigmine Ketones positive however does not meet criteria for DKA Most likely this is Metformin related toxicity with high ketones however he does not need any active charcoal treatment or dialysis He is hemodynamically stable Please note he did get hypoglycemic event in the past I would definitely recommend discontinuing Metformin My concerns were conveyed to the patient in clear terms I also told him that myasthenia gravis antibodies will not come back in a day or two we have started him on pyridostigmine and he can follow-up with neurology outpatient while waiting for the test results Vitals/I&O/Wt Last Vital Signs Temp 98.1 F 12/05/21 12:00 Pulse 67 12/05/21 12:00 Resp 16 12/05/21 12:00 BP 113/71 12/05/21 12:00 Pulse Ox 96 12/05/21 12:00 12/04/21 12/05/21 12/05/21 22:59 06:59 14:59 Intake Total 1800 / 2800 1240 / 4040 120 / 120 Balance 1800 / 2800 1240 / 4040 120 / 120 Weight last 48 hrs Weight 88.451 kg Physical Exam Narrative: Patient was laying supine I did not appreciate any focal deficits He has good strength of upper and lower extremities Hyperactive reflexes of deep tendon Sensation intact Decreased sensation of right leg No signs of ptosis S1, S2 Abdomen soft Saturating well on room air Looks euvolemic Awake and alert Nonfocal neuro exam Appropriate mood and affect Data : 12/05/21 03:11 12/05/21 03:11 Micro: Microbiology 12/04/21 13:43 Blood Culture - Preliminary Blood NEGATIVE TO DATE 12/04/21 12:39 Blood Culture - Preliminary Blood NEGATIVE TO DATE A&P Assessment and plan (1) Atrial fibrillation: Status: Chronic Qualifiers: Atrial fibrillation type: paroxysmal Qualified Code(s): I48.0 - Paroxysmal atrial fibrillation (2) Acidosis, lactic: Status: Acute (3) BPH loc w urin obs/LUTS: Status: Chronic (4) Retained ureteral stent: Status: Acute (5) Diabetes mellitus, type II: Status: Chronic Qualifiers: Diabetes mellitus shelter insulin use: with shelter use Diabetes mellitus complication status: with neurologic complications Diabetes mellitus complication detail: with polyneuropathy Qualified Code(s): E11.42 - Type 2 diabetes mellitus with diabetic polyneuropathy; 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 (6) Chronic anticoagulation: Status: Chronic (7) Intermittent self-catheterization of bladder: Status: Chronic (8) Dizziness: Status: Acute (9) Hypotension: Status: Acute Qualifiers: Hypotension type: orthostatic hypotension Qualified Code(s): I95.1 - Orthostatic hypotension (10) Gait instability: Status: Acute Plan Patient current symptoms Ataxia Dizziness Orthostatic hypotension Right leg weakness Weakness getting worse after some activity Dysphagia Differential diagnosis myasthenia gravis Metformin toxicity Plan We will send antibody test have him follow-up outpatient with neurology Continue pyridostigmine for possible myasthenia gravis and orthostatic hypotension treatment For Metformin toxicity he does not need any active topical treatment or dialysis Ketones positive, not acidotic This most likely is consistent with Metformin related toxicity He should not take Metformin anymore Metformin is not related to hypotension however with toxicity metabolism changes and patient does show positive ketones and hypoglycemia which he has been doing in last few months Nonfocal neuro deficit Right leg weakness after walking a few steps We can do a cold ice challenge test to see if his weakness would improve that would be diagnostic for myasthenia My other differential would be diabetic neuropathy Sliding scale Consistent carb diet Added pyridostigmine for orthostasis Leukocytosis, lactic acidosis, transaminases: Improved with IV fluid hydration Full code Can be discharged tomorrow Attestations Medical Necessity Statement*: Discharge tomorrow after PT evaluation Time Spent in Patient Care: 30mijn Coding Level of Care Code Acute Compliance Testing Analyst for g Fwd Diagnoses Atrial fibrillation I48.0 Atrial fibrillation type: paroxysmal Acidosis, lactic E87.2 BPH loc w urin obs/LUTS N40.1 Retained ureteral stent Z96.0 Diabetes mellitus, type II E11.42; Z79.4 Diabetes mellitus shelter insulin use: with shelter use Diabetes mellitus complication status: with neurologic complications Diabetes mellitus complication detail: with polyneuropathy Chronic anticoagulation Z79.01 Intermittent self-catheterization of bladder Z78.9 Dizziness R42 Hypotension I95.1 Hypotension type: orthostatic hypotension Gait instability R26.81
[2021-12-05 17:20] LABS: Glucose Point of Care 168 mg/dL (70-110)
[2021-12-05 20:59] LABS: Glucose Point of Care 226 mg/dL (70-110)
[2021-12-05] MEDS: insulin glargine 100 units/1 mL 10 UNIT SUBCUT (21:31)
[2021-12-05] MEDS: rivaroxaban 10 mg Tablet 15 MG PO (21:34)
[2021-12-05] MEDS: tamsulosin 0.4 mg Capsule PO (21:38)
[2021-12-05] MEDS: atorvastatin 40 mg Tablet 80 MG PO (21:38)
[2021-12-06] VITALS (8 sets, daily range): BP systolic 118–150; BP diastolic 66–83; PULSE 59–91; RESP 16–18; TEMP 36.5–36.9; O2SAT 92–98
[2021-12-06 03:02] LABS: Basophils % 0.6 %; Eosinophils # 0.3 10^3/uL (0.0-0.8); Eosinophils % 4.3 %; Hematocrit 33.7 % (42.0-52.0); Hemoglobin 10.4 g/dL (11.7-16.6); Lymphocytes # 1.7 10^3/uL (0.8-4.8); Mean Corpuscular HGB Conc 30.9 g/dL (30.0-36.0); Mean Corpuscular Hemoglobin 27.5 pg (28.0-34.0); Mean Corpuscular Volume 89.2 fl (80-94); Mean Platelet Volume 10.9 fL (7.4-10.4); Monocytes # 0.4 10^3/uL (0.2-0.9); Monocytes % 5.7 %; Neutrophils # 4.13 10^3/uL (1.8-7.7); Neutrophils % 63.1 %; Nucleated Red Blood Cells % 0 %; Platelet Count 220 10^3/cmm (130-400); Red Blood Count 3.78 10^6/uL (4.1-5.3); Red Cell Distribution Width 16.6 % (12.1-15.1); White Blood Count 6.5 10^3/uL (4.0-10.0)
[2021-12-06 03:21] LABS: Alanine Aminotransferase 7 U/L (0-41); Albumin Level 3.5 g/dL (3.5-5.2); Alkaline Phosphatase 81 IU/L (40-130); Anion Gap 16.6 (5-19); Aspartate Amino Transferase 13 U/L (0-40); Blood Urea Nitrogen 16 mg/dL (8-23); Calcium 9.9 mg/dL (8.5-10.5); Carbon Dioxide 25 mmol/L (22-29); Chloride 103 mmol/L (98-107); Globulin 3.4 g/dL (1.3-4.6); Glucose 221 mg/dL (65-115); Osmolality Calculated 300 mOsm/kg (285-295); Potassium 3.6 mmol/L (3.5-5.1); Sodium 141 mmol/L (136-145); Total Bilirubin 0.3 mg/dL (0.15-1.2); Total Protein 6.9 g/dL (6.6-8.7)
[2021-12-06] MEDS: HYDROcodone-acetaminophen 5-325 mg Tablet 1 TAB PO (03:39)
[2021-12-06 06:38] LABS: Glucose Point of Care 240 mg/dL (70-110)
[2021-12-06] MEDS: gabapentin 300 mg Capsule 600 MG PO ×3 (08:49→20:42)
[2021-12-06] MEDS: insulin lispro 100 unit/1 mL SUBCUT ×3 (08:49→17:33)
[2021-12-06] MEDS: sotalol 80 mg Tablet PO (08:49)
[2021-12-06] MEDS: pyridostigmine 60 mg Tablet 30 MG PO ×3 (08:49→20:42)
[2021-12-06] MEDS: cefTRIAXone 1,000 MG in sodium chloride 0.9% (plus) 50 ML 100 MG IV (10:12)
[2021-12-06 10:56] LABS: Add Urine Microscopic? YES; Bilirubin Urine Neg (Negative); Blood Urine 2+ (Negative); Glucose Urine UA 2+ (Normal); Ketones Urine Negative (Negative); Leukocyte Esterase Urine 2+ (Negative); Nitrate Urine Negative (Negative); Protein Urine 1+ (Negative); Specific Gravity, Urine 1.015 (1.005-1.030); Urine Appearance Clear (CLEAR); Urine Color Yellow (Yellow); Urobilinogen Urine Norm (Negative); pH Urine 5 (5-7)
[2021-12-06 11:02] LABS: Glucose Point of Care 218 mg/dL (70-110)
[2021-12-06 11:24] LABS: RBC Urine 15-25 /hpf (0-2); Squamous Epithelial Cell Urine RARE /hpf (0-5); WBC Urine 25-40 /hpf (0-5)
[2021-12-06 11:25] LABS: Add Urine Culture? Yes; Bacteria Urine TRACE /hpf
--- NOTE | 2021-12-06 14:05 | CT_ITS ---
WS: [id number] CT ABDOMEN PELVIS TECHNIQUE: Noncontrast CT of the abdomen and pelvis with coronal and sagittal reformatted images. CLINICAL INFORMATION: renal stone COMPARISON: CT October 03, 2021 DLP: 1399.[address] scans at [facility] use at least one of these dose optimization techniques: automated e xposure control; mA and/or kV adjustment per patient size (includes targeted exams where dose is matc hed to clinical indication); or iterative reconstruction. FINDINGS: Noncontrast liver is normal. Gallbladder is normal. Normal GE junction. Normal spleen. Lung bases are well aerated. Slight atelectasis/fibrosis in the LEFT greater than RIGHT lower lobe. Normal noncontr ast pancreas. Adrenal glands are normal. No hydronephrosis in either kidney. Both ureters are decompressed. No obstructing renal or ureteral calculi. Tiny nonobstructing RIGHT ca lyceal tip calculi. No periaortic or retroperitoneal lymphadenopathy. Normal caliber abdominal aorta. Enlarged prostate measuring 4.2 CM. Sigmoid diverticulosis. No evidence of acute diverticulitis. No e vidence of high-grade small or large bowel obstruction. Normal appendix in the RIGHT lower quadrant. Tiny fat-containing umbilical hernia. Retrolisthesis L2 on L3 and slight anterolisthesis L4 on L5. Disc space narrowing worse at L2-L3. Ant erior hypertrophic changes and ankylosis lower thoracic and lumbar spine. Advanced facet arthropathy lower lumbar spine. Osteopenia pelvic bony structures with a few patchy areas of lucency unchanged fr 2018 CT/CT kidney stone [id number] IMPRESSION: 1. No obstructing renal or ureteral calculi. No hydronephrosis. 2. Sigmoid diverticulosis. No evidence of acute diverticulitis. 3. Prostate enlargement.Correlation PSA. 4. No other acute findings.
--- NOTE | 2021-12-06 14:06 | PM.PN ---
Subjective Subjective: Patient was seen this morning: -He tells me at home his daughter takes care of him, but she is less able to take care of him now, she typically walks behind him wherever he needs to ambulate, has had a few falls in the last few weeks -He tells me that he has a bad back, has had multiple back surgeries, and he thinks that his back is the reason why he is so unsteady on his feet -He tells me that his right leg is more weak than the left, he thinks is from his back surgery, but he has fallen, but his back is no more painful than it usually is -He also tells me that he feels weak in his arms, and he feels weak in his legs -He thinks that it is because he stopped using them, because he is here in the hospital -He thinks that he would benefit from a usp and rehab -Denies any dysuria, any hematuria, any flank pain but does have a history of nephrolithiasis Vitals/I&O/Wt Last Vital Signs Temp 98.2 F 12/06/21 11:23 Pulse 84 12/06/21 11:23 Resp 18 12/06/21 11:23 BP 134/75 12/06/21 11:23 Pulse Ox 97 12/06/21 11:23 12/05/21 12/06/21 12/06/21 22:59 06:59 14:59 Intake Total 300 / 420 50 / 50 Output Total 250 / 600 0 / 0 Balance 50 / -180 50 / 50 Physical Exam Const: COMMON NORMALS: no acute distress and patient oriented x3 Resp: COMMON NORMALS: normal respiratory effort, No retractions, No use of accessory muscles and clear to auscultation bilaterally AUSCULTATION: clear to auscultation bilaterally Cardio: COMMON NORMALS: regular rate, regular rhythm, S1 normal heart sound present and S2 normal heart sound present RATE: regular rate RHYTHM: regular rhythm HEART SOUNDS: S1 normal heart sound present and S2 normal heart sound present GI: COMMON NORMALS: Normal to inspection, nondistended, normoactive bowel sounds present, Soft to palpation, non-tender and No hepatosplenomegaly present PALPATION: Yes Soft to palpation and Yes No hepatosplenomegaly present Extremity: COMMON NORMALS: no pedal edema Neuro: COMMON NORMALS: patient oriented x3 OTHER: Bilateral upper extremity strength 5 out of 5 bilaterally Left shoulder, significant pain with range of motion, No significant flexion contracture that I can notice Right lower extremity strength 4 out of 5 Left lower extremity strength 4 out of 5 Psych: COMMON NORMALS: mental status grossly normal Data : 12/06/21 01:55 12/06/21 01:55 Micro: Microbiology 12/06/21 11:41 Blood Culture - Preliminary Blood SPECIMEN COLLECTED 12/06/21 11:39 Blood Culture - Preliminary Blood SPECIMEN COLLECTED 12/04/21 13:19 Urine Culture - Final Urine,Clean Catch 12/04/21 13:43 Blood Culture - Preliminary Blood NEGATIVE TO DATE 12/04/21 12:39 Blood Culture - Preliminary Blood NEGATIVE TO DATE A&P Assessment and plan (1) Atrial fibrillation: Status: Chronic Qualifiers: Atrial fibrillation type: paroxysmal Qualified Code(s): I48.0 - Paroxysmal atrial fibrillation (2) Acidosis, lactic: Status: Acute (3) BPH loc w urin obs/LUTS: Status: Chronic (4) Retained ureteral stent: Status: Acute (5) Diabetes mellitus, type II: Status: Chronic Qualifiers: Diabetes mellitus 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 Diabetes mellitus complication status: with neurologic complications Diabetes mellitus complication detail: with polyneuropathy Qualified Code(s): E11.42 - Type 2 diabetes mellitus with diabetic polyneuropathy; 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 (6) Chronic anticoagulation: Status: Chronic (7) Intermittent self-catheterization of bladder: Status: Chronic (8) Dizziness: Status: Acute (9) Hypotension: Status: Acute Qualifiers: Hypotension type: orthostatic hypotension Qualified Code(s): I95.1 - Orthostatic hypotension (10) Gait instability: Status: Acute Plan Patient current symptoms Ataxia Dizziness Orthostatic hypotension Right leg weakness Weakness getting worse after some activity Dysphagia Differential diagnosis myasthenia gravis Metformin toxicity Plan We will send antibody test have him follow-up outpatient with neurology Continue pyridostigmine for possible myasthenia gravis and orthostatic hypotension treatment For Metformin toxicity he does not need any active topical treatment or dialysis Ketones positive, not acidotic This most likely is consistent with Metformin related toxicity He should not take Metformin anymore Metformin is not related to hypotension however with toxicity metabolism changes and patient does show positive ketones and hypoglycemia which he has been doing in last few months Nonfocal neuro deficit Right leg weakness after walking a few steps Lumbar MRI shows 1.? Right L2-3, right L3-4, and right L4-5 hemilaminectomies are new from previous. 2.? Mild lumbar curve. No acute compression. Slight retrolisthesis L2 on L3 with disc desiccation. 3.? Central canal stenosis L2-L3 appears improved from previous. 4.? Moderate residual central canal stenosis L3-4 appears slightly improved from previous. However, new small 10 mm right synovial cyst, just below the laminectomy defects, impinges the right dorsal thecal sac contributing to central canal stenosis. 5.? Improved mild central canal stenosis L4-5. 6.? Severe right L2-3 foraminal narrowing impinges the exiting right L2 nerve root. 7.? Mild to moderate right L3-4 foraminal narrowing. Mild right L4-5 foraminal narrowing. 8.? Moderate to advanced facet arthropathy L2-L3, L3-L4, L4-L5. This is worse at L4-5. Likely patient's right lower extremity weakness is from severe nerve impingement on the right He does tell me that he is fallen multiple times, will do a CT of the lumbar spine No urinary incontinence, no bowel incontinence, no saddle or perineal anesthesia We will do CT of the head UA does show significant leukocytosis, RBC, history of stent placement then removal, instructed Adam, will do CT renal stone protocol Sliding scale Consistent carb diet Added pyridostigmine for orthostasis Leukocytosis, lactic acidosis, transaminases: Improved with IV fluid hydration Full code PT OT, speech therapy eval Proceeding with usp placement Attestations Medical Necessity Statement*: Patient requires hospitalization for UTI, right lower extremity weakness Coding Level of Care Code Acute Emergency Management System Director for Chg Fwd Diagnoses Atrial fibrillation I48.0 Atrial fibrillation type: paroxysmal Acidosis, lactic E87.2 BPH loc w urin obs/LUTS N40.1 Retained ureteral stent Z96.0 Diabetes mellitus, type II E11.42; Z79.4 Diabetes mellitus 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
--- NOTE | 2021-12-06 14:12 | CT_ITS ---
WS: [email or web address] CT LUMBAR SPINE TECHNIQUE: Noncontrast CT of the lumbar spine with coronal and sagittal reformatted images. CLINICAL INFORMATION: fall COMPARISON: MRI May 10, 2021 DLP: 2181.[address] scans at [facility] use at least one of these dose optimization techniques: automated e xposure control; mA and/or kV adjustment per patient size (includes targeted exams where dose is matc hed to clinical indication); or iterative reconstruction. FINDINGS: Mild lumbar curve. No acute compression fractures. Prominent anterior hypertrophic changes lumbar spi ne with advanced spondylitic changes. Disc space narrowing worse at L2-L3. Slight retrolisthesis L2 o n L3. Slight anterolisthesis L4 on L5. Small lucent lesions in the lumbar spine appear unchanged sinc e September 24, 2020. Disc osteophyte complexes worse at L2-L3 and L3-L4. L1-L2: Moderate facet arthropathy. Spinal canal and foramen are patent. L2-L3: Slight retrolisthesis L2 on L3 with mild to moderate central canal stenosis. Impingement on th e traversing RIGHT greater than LEFT L3 nerve roots. Advanced facet arthropathy. Severe RIGHT foramin al narrowing. LEFT foramen is patent. L3-L4: Disc osteophyte complex endplate ridging. Moderate central canal stenosis. Narrowing subarticu lar recess bilaterally. Advanced facet arthropathy with ligamentum flavum flavum hypertrophy. Moderat e RIGHT and mild LEFT foraminal narrowing. Impingement on the exiting RIGHT L3 nerve root. L4-L5: Slight anterolisthesis L4 on L5. Moderate central canal stenosis. Advanced facet arthropathy. Mild to moderate RIGHT and mild LEFT foraminal narrowing. L5-S1: No significant disc bulging. Spinal canal and foramen are patent. Moderate facet arthropathy. Patchy lucent lesions within the pelvis about the sacroiliac joints unchanged. Osteopenia. CT/CT lumbar spine wo con* [id number] IMPRESSION: 1. Overall no significant changes compared to the MRI May 10, 2021 2. No acute fractures. 3. Slight anterolisthesis L4 on L5 and retrolisthesis L2 on L3 unchanged from prior studies. Disc space narrowing worse at L2-L3 with endplate degenerative c hanges. 4. Moderate residual central canal stenosis L2-L3 L3-L4 and L4-L5 unchanged si nce the prior MRI 03/25. Prior hemilaminectomies at these levels. 5. Severe RIGHT L2-L3 foraminal narrowing impinges the exiting RIGHT L2 nerve root. Impingement on the traversing RIGHT L3 nerve root. 6. Moderate RIGHT L3-L4 and mild to moderate RIGHT L4-L5 foraminal narrowing. 7. Advanced facet arthropathy L2-L3, L3-L4, and L4-L5.
--- NOTE | 2021-12-06 14:15 | CT_ITS ---
WS: [id number] CT HEAD TECHNIQUE: Noncontrast CT of the head obtained from the skullbase to the vertex. CLINICAL INFORMATION: right lower extrmity strength COMPARISON: October 05, 2021 DLP: 819.[address] scans at [facility] use at least one of these dose optimization techniques: automated e xposure control; mA and/or kV adjustment per patient size (includes targeted exams where dose is matc hed to clinical indication); or iterative reconstruction. FINDINGS: No evidence of intracranial hemorrhage or mass effect. Ventricular system and basal cisterns are sood nt. Mild small vessel changes with mild parenchymal volume loss. Intracranial vascular calcification. No extra-axial fluid collections. No evidence of mass or mass effect. Paranasal sinuses and mastoid air cells are well aerated. .Normal visualized soft tissues. CT/CT head wo con* [id number] IMPRESSION: 1. No evidence of intracranial hemorrhage or mass effect. 2. Mild small vessel changes with moderate parenchymal volume loss. 3. Intracranial vascular calcification. 4. No acute intracranial findings.
[2021-12-06 17:04] LABS: Glucose Point of Care 207 mg/dL (70-110)
[2021-12-06] MEDS: rivaroxaban 10 mg Tablet 15 MG PO (20:41)
[2021-12-06] MEDS: atorvastatin 40 mg Tablet 80 MG PO (20:42)
[2021-12-06] MEDS: tamsulosin 0.4 mg Capsule PO (20:42)
[2021-12-06] MEDS: insulin glargine 100 units/1 mL 10 UNIT SUBCUT (20:43)
[2021-12-07] VITALS: BP 150/82; PULSE 54; RESP 18; TEMP 36.4; O2SAT 98
[2021-12-07 04:00] VITALS: BP 155/82; PULSE 55; RESP 16; TEMP 36.6; O2SAT 96
[2021-12-07 05:59] LABS: Basophils # 0.1 10^3/uL (0.0-0.1); Basophils % 0.8 %; Eosinophils # 0.4 10^3/uL (0.0-0.8); Eosinophils % 5.6 %; Hematocrit 32.3 % (42.0-52.0); Lymphocytes # 2.2 10^3/uL (0.8-4.8); Lymphocytes % 31.3 %; Mean Corpuscular Hemoglobin 27.6 pg (28.0-34.0); Mean Corpuscular Volume 89.2 fl (80-94); Mean Platelet Volume 10.7 fL (7.4-10.4); Monocytes # 0.5 10^3/uL (0.2-0.9); Monocytes % 6.5 %; Neutrophils # 3.95 10^3/uL (1.8-7.7); Neutrophils % 55.5 %; Nucleated Red Blood Cells % 0 %; Platelet Count 192 10^3/cmm (130-400); Red Blood Count 3.62 10^6/uL (4.1-5.3); Red Cell Distribution Width 16.6 % (12.1-15.1); White Blood Count 7.1 10^3/uL (4.0-10.0)
[2021-12-07 06:16] LABS: Alanine Aminotransferase 6 U/L (0-41); Albumin Level 3.3 g/dL (3.5-5.2); Alkaline Phosphatase 75 IU/L (40-130); Anion Gap 14.6 (5-19); Aspartate Amino Transferase 12 U/L (0-40); Blood Urea Nitrogen 13 mg/dL (8-23); Calcium 9.4 mg/dL (8.5-10.5); Carbon Dioxide 26 mmol/L (22-29); Chloride 105 mmol/L (98-107); Glucose 223 mg/dL (65-115); Magnesium 1.6 mg/dL (1.7-2.3); Osmolality Calculated 301 mOsm/kg (285-295); Phosphorus 3.3 mg/dL (2.5-4.5); Potassium 3.6 mmol/L (3.5-5.1); Sodium 142 mmol/L (136-145); Total Bilirubin 0.4 mg/dL (0.15-1.2); Total Protein 6.3 g/dL (6.6-8.7)
[2021-12-07 08:00] VITALS: BP 152/78; PULSE 60; RESP 18; TEMP 36.4; O2SAT 94
[2021-12-07 08:15] LABS: Glucose Point of Care 214 mg/dL (70-110)
[2021-12-07] MEDS: sotalol 80 mg Tablet PO ×2 (08:21→19:42)
[2021-12-07] MEDS: pyridostigmine 60 mg Tablet 30 MG PO ×3 (08:21→19:40)
[2021-12-07] MEDS: gabapentin 300 mg Capsule 600 MG PO ×3 (08:21→19:39)
[2021-12-07] MEDS: insulin lispro 100 unit/1 mL SUBCUT ×3 (08:21→17:51)
[2021-12-07] MEDS: cefTRIAXone 1,000 MG in sodium chloride 0.9% (plus) 50 ML 100 MG IV (09:17)
[2021-12-07 11:05] LABS: Glucose Point of Care 247 mg/dL (70-110)
[2021-12-07 11:37] VITALS: BP 157/76; PULSE 62; RESP 18; TEMP 36.4; O2SAT 95
--- NOTE | 2021-12-07 13:17 | PM.CONSULT ---
Providers/Reason For Consult Consulting Physician/Specialty*: Ortho Spine Reason for Consult*: Leg weakness Attending Physician: Omari Lopez MD Primary Care Provider: Trisha Urena MD History of Present Illness History of Present Illness Raphael Deal is a 71 year old male C/O back pain with Leg weakness. Reports this weakness has been getting worse over the last few months. Denies any recent falls. He reports being able to walk only a few steps before he has the feeling of jelly in my legs . reports back pain for years but his leg weakness has been the biggest problem, Rest gives him some relief but standing, walking make his symptoms much worse. Denies Loss of Bowel or Bladder control. He has had a previous Decompression L2-3,L3-4,L4-5 on 03/[address] Smith. His leg pain has returned with inability to walk more than a few steps. Review of Systems Const: Reports: fatigue; Denies: fever(s) or chills Eyes: Denies: change in vision ENMT: Reports: throat pain (Sometimes, not currently, thinks due to dry mouth) and dry mouth; Denies: nasal congestion Card: Reports: edema (Sometimes has swelling in his legs but not recently) and lightheadedness; Denies: chest pain or palpitations Resp: Denies: dyspnea, productive cough, non-productive cough, pain on inspiration or chest congestion GI: Reports: diarrhea (After taking something for constipation), constipation and other (Describes his stool as always red but denies blood in stool); Denies: abdominal pain, nausea or vomiting : Reports: urinary incontinence (None currently but had had for a while before catheter placed) and other (Self-catheterization); Denies: flank pain, urinary dribbling or hematuria Musc: Reports: back pain, extremity pain (Right hip and leg more so than left), muscle cramps, muscle weakness and decrease in muscle mass Skin/Breast: Reports: other (Wound to left foot has healed up); Denies: rash, pruritus or sores (Denies other ulcers or pressure injuries) Neuro: Reports: headache(s), numbness in extremities, weakness in extremities, lack of coordination, difficulty walking, frequent falls and dizziness Psych: Denies: anxiety or depression Felix/Lymph: Reports: easy bruising Medications/Allergies Home Medications Medication Instructions Recorded Confirmed Last Taken Type cholecalciferol (vitamin D3) 25 See Rx Instructions .ROUTE .COMPLEX 11/07/19 12/04/21 12/04/21 History mcg (1,000 unit) capsule (Vitamin D3) digoxin 250 mcg (0.25 mg) tablet 250 mcg PO QAM 11/07/19 12/04/21 12/04/21 History omega-3 fatty acids 1,000 mg 1,000 mg PO BID 11/07/19 12/04/21 03/19/21 History capsule (Fish Oil Concentrate) fluticasone propionate 50 2 spray INTRANASAL DAILY PRN 05/07/20 12/04/21 Unknown History mcg/actuation nasal spray,suspension (Flonase Allergy Relief) gabapentin 800 mg tablet 800 mg PO TID 05/07/20 12/04/21 12/04/21 08:00 History sotalol 160 mg tablet 80 mg PO BID 05/07/20 12/04/21 12/04/21 History water aerobics #1 ea 05/09/21 12/04/21 Unknown Rx metformin 1,000 mg tablet 1,000 mg PO BID 08/23/21 12/04/21 12/04/21 History insulin aspart U-100 100 unit/mL See Rx Instructions .ROUTE 08/30/21 12/04/21 12/03/21 23:00 Rx (3 mL) subcutaneous pen (Novolog .COMPLEX #15 ml 20 units Flexpen U-100 Insulin aspart) albuterol sulfate 90 mcg/actuation 2 puff INHALATION Q4H PRN 10/03/21 12/04/21 Unknown History aerosol inhaler (ProAir HFA) fluticasone 100 mcg-salmeterol 50 1 inh INHALATION BID 10/03/21 12/04/21 Unknown History mcg/dose blistr powdr for inhalation (Wixela Inhub) lisinopril 40 mg tablet 20 mg PO QAM 10/03/21 12/04/21 12/04/21 History hydrocodone 5 mg-acetaminophen 325 1 tab PO Q6H PRN 4 Days #15 tab 11/01/21 12/04/21 12/03/21 21:00 Rx mg tablet furosemide 20 mg tablet 20 mg PO BID 11/05/21 12/04/21 12/04/21 History cranberry 2 cap PO DAILY 12/04/21 12/04/21 Unknown History insulin glargine 100 unit/mL (3 20 unit SUBCUT BEDTIME PRN 12/04/21 12/04/21 12/03/21 History mL) subcutaneous pen (Lantus Solostar U-100 Insulin) rivaroxaban 15 mg tablet (Xarelto) 15 mg PO BEDTIME 12/04/21 12/04/21 12/03/21 History rosuvastatin 40 mg tablet 20 mg PO BEDTIME 12/04/21 12/04/21 12/03/21 History tamsulosin 0.4 mg capsule 0.4 mg PO BEDTIME 12/04/21 12/04/21 12/03/21 History Allergies Allergy/AdvReac Type Severity Reaction Status Date / Time No Known Allergies Allergy Verified 11/17/21 19:51 Current Medications Generic Name Dose Route Start Last Admin Trade Name Freq PRN Reason Stop Dose Admin Hydrocodone Bitart/Acetaminophen 1 tab 12/04/21 18:23 12/06/21 03:39 Hydrocodone-Acetaminophen 5-325 Mg Tablet PO 1 tab Q6H PRN Administration MODERATE TO SEVERE PAIN Atorvastatin Calcium 80 mg 12/04/21 21:00 12/06/21 20:42 Atorvastatin 40 Mg Tablet PO 80 mg BEDTIME ROSALBA Administration Gabapentin 600 mg 12/04/21 21:00 12/07/21 08:21 Gabapentin 300 Mg Capsule PO 600 mg TID ROSALBA Administration Ceftriaxone Sodium 1,000 mg/ 50 mls @ 100 mls/hr 12/06/21 09:45 12/07/21 10:11 Sodium Chloride IV Infused Q24H ROSALBA Infusion Protocol Insulin Glargine 10 unit 12/04/21 21:00 12/06/21 20:43 Insulin Glargine 100 Units/1 Ml SUBCUT 10 unit BEDTIME ROSALBA Administration Insulin Human Lispro 0 unit 12/04/21 21:00 12/04/21 22:09 Insulin Lispro 100 Unit/1 Ml SUBCUT 1 unit BEDTIME ROSALBA Administration Protocol Insulin Human Lispro 0 unit 12/05/21 08:00 12/07/21 08:21 Insulin Lispro 100 Unit/1 Ml SUBCUT 4 unit TIDWM ROSALBA Administration Protocol Pyridostigmine Clark 30 mg 12/04/21 19:25 12/07/21 08:21 Pyridostigmine 60 Mg Tablet PO 30 mg TID ROSALBA Administration Rivaroxaban 15 mg 12/04/21 21:00 12/06/21 20:41 Rivaroxaban 10 Mg Tablet PO 15 mg BEDTIME ROSALBA Administration Sotalol HCl 80 mg 12/04/21 21:00 12/07/21 08:21 Sotalol 80 Mg Tablet PO 80 mg BID@0900,2100 ROSALBA Administration Tamsulosin HCl 0.4 mg 12/04/21 21:00 12/06/21 20:42 Tamsulosin 0.4 Mg Capsule PO 0.4 mg BEDTIME ROSALBA Administration PFSH Acute PFSH: Medical History (Updated 12/07/21 @ 13:53 by Haider Brown PA-C) Anemia Atrial fibrillation BPH loc w urin obs/LUTS Cervicalgia of ijvsfgog-ooyibws-sazdm region Chronic anticoagulation Xarelto secondary to atrial fibrillation Diabetes mellitus, type II Diabetic foot ulcer 08/2021 - treated with I&D, antibiotics and wound care clinic management 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 mellitus H/O prostate cancer History of cardiovascular stress test 05/2021 normal EKG response, perfusion study without findings of ischemia History of Doppler ultrasound 08/2021 venous no DVT BLE 08/2021 arterial patent vessels, left posterior tibial may be less than 60% stenosis, left dorsalis pedis not visualized History of echocardiogram 05/2021 EF 65% History of electromyography 01/23 Interpretation: The study provides electrodiagnostic evidence for an axonal sensorimotor polyneuropathy based on small or absent CMAPs and SNAPs with denervation seen distally on EMG. The study is limited for evaluation of lumbar radiculopathy related to the patient's anticoagulated state. History of sleep study 02/22 limited sleep, no apnea noted but did have nocturnal hypoxemia, recommended to use nocturnal oxygen HTN (hypertension) previously on treatment for high blood pressure Intermittent self-catheterization of bladder due to urinary retention Left ureteral calculus Lumbar stenosis L2/3, L3/4, L4/L5, with radiculopathy right lower extremity Lumbar stenosis with neurogenic claudication Obstructive pyelonephritis 09/2021 required ureteral stent placement Obstructive sleep apnea Refuses CPAP SARS-CoV-2 positive positive test 11/17/2021 symptoms weakness, hypoglycemia, altered mental status and low grade fever Surgical History (Updated 12/04/21 @ 18:18 by Itzel Colon MD) H/O esophagogastroduodenoscopy (10/30/21) 10/2021 pedunculated polyps removed from first portion of duodenum, otherwise normal History of back surgery History of colonoscopy (10/30/21) 11/2021 diverticulosis of sigmoid colon and internal hemorrhoids, sessile polyps removed History of laminectomy 03/25 bilateral with partial facetectomies at L2-3, L3-4, L4-[address] Smith History of pilonidal cyst Other postprocedural status history of radiofrequency ablation for back pain x 2 S/P appendectomy S/P tonsillectomy S/P ureteral stent placement (09/2021) subsequent removal Status post excisional debridement 08/2021 left foot Status post laser lithotripsy of ureteral calculus (11/06/21) Family History (Updated 12/04/21 @ 18:20 by Itzel Colon MD) Grandmother Heart disease Hypertension Grandfather Hypertension MATERNAL Diabetes Mother No problems noted. 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 Financial difficulty paying for basics: Very Hard Vitals/I&O/Wt Last Vital Signs Temp 97.5 F L 12/07/21 11:37 Pulse 62 12/07/21 11:37 Resp 18 12/07/21 11:37 BP 157/76 12/07/21 11:37 Pulse Ox 95 12/07/21 11:37 12/06/21 12/07/21 12/07/21 22:59 06:59 14:59 Intake Total 290 / 290 Output Total 0 / 0 / Balance 0 / 290 -1 / 289 290 / 290 Physical Exam Const: COMMON NORMALS: no acute distress and patient oriented x3 HENMT: COMMON NORMALS: normocephalic and hearing grossly normal bilaterally HEAD & SCALP: normocephalic Resp: COMMON NORMALS: normal respiratory effort Cardio: COMMON NORMALS: regular rate and regular rhythm RATE: regular rate RHYTHM: regular rhythm GI: COMMON NORMALS: Soft to palpation and non-tender PALPATION: Yes Soft to palpation : COMMON NORMALS: Yes no CVA tenderness BLADDER/KIDNEY EXAM: Yes no CVA tenderness Back/Pelvis: COMMON NORMALS: no CVA tenderness Extremity: NARRATIVE EXTREMITY EXAM: Fires in BLE, feet warm with good cap refill, Calves supple, Neuro: COMMON NORMALS: patient oriented x3 Psych: COMMON NORMALS: mental status grossly normal and cooperative Skin: OTHER: Well healed incision in Midline of Lumbar region from previous Surgery. Data : 12/07/21 05:07 12/07/21 05:07 Micro: Microbiology 12/06/21 11:41 Blood Culture - Preliminary Blood NEGATIVE TO DATE 12/06/21 11:39 Blood Culture - Preliminary Blood NEGATIVE TO DATE 12/06/21 10:42 Urine Culture - Preliminary Urine,Clean Catch 12/04/21 13:19 Urine Culture - Final Urine,Clean Catch Other CT: Radiologist's impression: 1.? Overall no significant changes compared to the MRI May 10, 2021 2.? No acute fractures. 3.? Slight anterolisthesis L4 on L5 and retrolisthesis L2 on L3 unchanged from prior studies. Disc space narrowing worse at L2-L3 with endplate degenerative changes. 4.? Moderate residual central canal stenosis L2-L3 L3-L4 and L4-L5 unchanged since the prior MRI 03/25. Prior hemilaminectomies at these levels. 5.? Severe RIGHT L2-L3 foraminal narrowing impinges the exiting RIGHT L2 nerve root. Impingement on the traversing RIGHT L3 nerve root. 6.? Moderate RIGHT L3-L4 and mild to moderate RIGHT L4-L5 foraminal narrowing. 7.? Advanced facet arthropathy L2-L3, L3-L4, and L4-L5. ? A&P Assessment and plan (1) DDD (degenerative disc disease), lumbar: Compared MRI lumbar spine from 03/[address] L Spine stenosis is severe and causing Neurogenic Claudication. Due to previous decomp next step needs to be Lumbar Fusion with open decompression for stabilization. Will discuss with Dr. Smith and have further discussion with patient to determine treatment options. If medically stable an optiion would be Thursday12/09/21. Status: Acute (2) Spinal stenosis, lumbar region, with neurogenic claudication: Status: Acute Coding Level of Care Code Established Pt Acute Chemical Operations Specialist for Chg Fwd Patient Type Established History Expanded Problem Focused Exam Expanded Problem Focused Medical Decision Making Moderate Complexity Diagnoses DDD (degenerative disc disease), lumbar M51.36 Spinal stenosis, lumbar region, with neurogenic claudication M48.062 Time Spent (min) 45
--- NOTE | 2021-12-07 13:56 | PM.PN ---
Subjective Subjective: Patient was seen this morning, he tells me that he is feeling better this morning, continues to have right lower extremity pain, some back pain, Vitals/I&O/Wt Last Vital Signs Temp 97.5 F L 12/07/21 11:37 Pulse 62 12/07/21 11:37 Resp 18 12/07/21 11:37 BP 157/76 12/07/21 11:37 Pulse Ox 95 12/07/21 11:37 12/06/21 12/07/21 12/07/21 22:59 06:59 14:59 Intake Total 290 / 290 Output Total 0 / 0 Balance 0 / 290 -1 / 289 290 / 290 Physical Exam Const: COMMON NORMALS: no acute distress and patient oriented x3 Resp: COMMON NORMALS: normal respiratory effort, No retractions, No use of accessory muscles and clear to auscultation bilaterally AUSCULTATION: clear to auscultation bilaterally Cardio: COMMON NORMALS: regular rate, regular rhythm, S1 normal heart sound present and S2 normal heart sound present RATE: regular rate RHYTHM: regular rhythm HEART SOUNDS: S1 normal heart sound present and S2 normal heart sound present GI: COMMON NORMALS: Normal to inspection, nondistended, normoactive bowel sounds present, Soft to palpation, non-tender and No hepatosplenomegaly present PALPATION: Yes Soft to palpation and Yes No hepatosplenomegaly present Extremity: COMMON NORMALS: no pedal edema Neuro: COMMON NORMALS: patient oriented x3 Psych: COMMON NORMALS: mental status grossly normal Data : 12/07/21 05:07 12/07/21 05:07 Micro: Microbiology 12/06/21 11:41 Blood Culture - Preliminary Blood NEGATIVE TO DATE 12/06/21 11:39 Blood Culture - Preliminary Blood NEGATIVE TO DATE 12/06/21 10:42 Urine Culture - Preliminary Urine,Clean Catch 12/04/21 13:19 Urine Culture - Final Urine,Clean Catch A&P Assessment and plan (1) Spinal stenosis, lumbar region, with neurogenic claudication: Status: Acute (2) DDD (degenerative disc disease), lumbar: Status: Acute (3) Atrial fibrillation: Status: Chronic Qualifiers: Atrial fibrillation type: paroxysmal Qualified Code(s): I48.0 - Paroxysmal atrial fibrillation (4) Chronic anticoagulation: Status: Chronic (5) Diabetes mellitus, type II: Status: Chronic Qualifiers: Diabetes mellitus ad terminal makeup operator insulin use: with ad terminal makeup operator use Diabetes mellitus complication status: with neurologic complications Diabetes mellitus complication detail: with polyneuropathy Qualified Code(s): E11.42 - Type 2 diabetes mellitus with diabetic polyneuropathy; Z79.4 - shelter (current) use of insulin (6) Intermittent self-catheterization of bladder: Status: Chronic (7) Anemia: Status: Chronic Qualifiers: Anemia type: other cause Other causes of anemia: chronic disease, other Qualified Code(s): D63.8 - Anemia in other chronic diseases classified elsewhere (8) Dizziness: Status: Acute Plan Patient current symptoms Ataxia Dizziness Orthostatic hypotension Right leg weakness Weakness getting worse after some activity Dysphagia Differential diagnosis myasthenia gravis Metformin toxicity Plan We will send antibody test have him follow-up outpatient with neurology Continue pyridostigmine for possible myasthenia gravis and orthostatic hypotension treatment For Metformin toxicity he does not need any active topical treatment or dialysis Ketones positive, not acidotic This most likely is consistent with Metformin related toxicity He should not take Metformin anymore Metformin is not related to hypotension however with toxicity metabolism changes and patient does show positive ketones and hypoglycemia which he has been doing in last few months Nonfocal neuro deficit Right leg weakness after walking a few steps Lumbar MRI shows 1.? Right L2-3, right L3-4, and right L4-5 hemilaminectomies are new from previous. 2.? Mild lumbar curve. No acute compression. Slight retrolisthesis L2 on L3 with disc desiccation. 3.? Central canal stenosis L2-L3 appears improved from previous. 4.? Moderate residual central canal stenosis L3-4 appears slightly improved from previous. However, new small 10 mm right synovial cyst, just below the laminectomy defects, impinges the right dorsal thecal sac contributing to central canal stenosis. 5.? Improved mild central canal stenosis L4-5. 6.? Severe right L2-3 foraminal narrowing impinges the exiting right L2 nerve root. 7.? Mild to moderate right L3-4 foraminal narrowing. Mild right L4-5 foraminal narrowing. 8.? Moderate to advanced facet arthropathy L2-L3, L3-L4, L4-L5. This is worse at L4-5. Likely patient's right lower extremity weakness is from severe nerve impingement on the right He does tell me that he is fallen multiple times, Lumbar spinal CT shows 1.? Overall no significant changes compared to the MRI May 10, 2021 2.? No acute fractures. 3.? Slight anterolisthesis L4 on L5 and retrolisthesis L2 on L3 unchanged from prior studies. Disc space narrowing worse at L2-L3 with endplate degenerative changes. 4.? Moderate residual central canal stenosis L2-L3 L3-L4 and L4-L5 unchanged since the prior MRI 03/25. Prior hemilaminectomies at these levels. 5.? Severe RIGHT L2-L3 foraminal narrowing impinges the exiting RIGHT L2 nerve root. Impingement on the traversing RIGHT L3 nerve root. 6.? Moderate RIGHT L3-L4 and mild to moderate RIGHT L4-L5 foraminal narrowing. 7.? Advanced facet arthropathy L2-L3, L3-L4, and L4-L5. -Likely cause of patient's right leg weakness is severe impingement on the right -Consult Dr. Smith No urinary incontinence, no bowel incontinence, no saddle or perineal anesthesia CT of the head no acute stroke, UA does show significant leukocytosis, RBC, history of stent placement then removal, instructed Adam, CT abdomen negative for renal stone stone, continue Rocephin for antibiotic coverage Atrial fibrillation continue Betapace, continue Xarelto Sliding scale Consistent carb diet Added pyridostigmine for orthostasis Leukocytosis, lactic acidosis, transaminases: Improved with IV fluid hydration, continue to monitor Full code PT OT, speech therapy eval Self-catheterization, continue Proceeding with mcc placement Attestations Medical Necessity Statement*: Patient requires hospitalization for generalized weakness, right lower extremity pain, L1-L5 disease, nerve impingement, Coding Level of Care Code Acute Academic Intern for Chg Fwd Diagnoses Spinal stenosis, lumbar region, with neurogenic claudication M48.062 DDD (degenerative disc disease), lumbar M51.36 Atrial fibrillation I48.0 Atrial fibrillation type: paroxysmal Chronic anticoagulation Z79.01 Diabetes mellitus, type II E11.42; Z79.4 Diabetes mellitus usp insulin use: with usp use Diabetes mellitus complication status: with neurologic complications Diabetes mellitus complication detail: with polyneuropathy Intermittent self-catheterization of bladder Z78.9 Anemia D63.8 Anemia type: other cause Other causes of anemia: chronic disease, other Dizziness R42
--- NOTE | 2021-12-07 15:40 | PC.SOCIAL ---
Pg 2 IMM Explained to pt Pg 2 IMM. No questions voiced. Provided pt a copy. Initialed, dated, & timed a copy & placed in chart.
[2021-12-07 15:58] VITALS: BP 160/78; PULSE 64; RESP 18; TEMP 36.6; O2SAT 97
[2021-12-07 19:23] VITALS: BP 144/76; PULSE 62; RESP 18; TEMP 36.5; O2SAT 97
[2021-12-07] MEDS: atorvastatin 40 mg Tablet 80 MG PO (19:38)
[2021-12-07] MEDS: rivaroxaban 10 mg Tablet 15 MG PO (19:42)
[2021-12-07] MEDS: tamsulosin 0.4 mg Capsule PO (19:44)
[2021-12-07 20:23] LABS: Glucose Point of Care 161 mg/dL (70-110)
[2021-12-07] MEDS: insulin glargine 100 units/1 mL 10 UNIT SUBCUT (20:41)
[2021-12-08] VITALS (9 sets, daily range): BP systolic 127–160; BP diastolic 69–83; PULSE 55–72; RESP 16–19; TEMP 36.4–37; O2SAT 91–98
[2021-12-08 04:51] LABS: Basophils # 0.1 10^3/uL (0.0-0.1); Eosinophils # 0.4 10^3/uL (0.0-0.8); Eosinophils % 5.5 %; Hematocrit 30.7 % (42.0-52.0); Hemoglobin 9.5 g/dL (11.7-16.6); Lymphocytes # 2.2 10^3/uL (0.8-4.8); Lymphocytes % 29.5 %; Mean Corpuscular HGB Conc 30.9 g/dL (30.0-36.0); Mean Corpuscular Hemoglobin 27.2 pg (28.0-34.0); Mean Platelet Volume 10.6 fL (7.4-10.4); Monocytes # 0.5 10^3/uL (0.2-0.9); Monocytes % 6.2 %; Neutrophils # 4.19 10^3/uL (1.8-7.7); Neutrophils % 57.5 %; Nucleated Red Blood Cells % 0 %; Platelet Count 210 10^3/cmm (130-400); Red Blood Count 3.49 10^6/uL (4.1-5.3); Red Cell Distribution Width 16.8 % (12.1-15.1); White Blood Count 7.3 10^3/uL (4.0-10.0)
[2021-12-08 05:07] LABS: Alanine Aminotransferase 7 U/L (0-41); Alkaline Phosphatase 69 IU/L (40-130); Blood Urea Nitrogen 11 mg/dL (8-23); Calcium 8.2 mg/dL (8.5-10.5); Carbon Dioxide 26 mmol/L (22-29); Chloride 105 mmol/L (98-107); Globulin 2.6 g/dL (1.3-4.6); Glucose 212 mg/dL (65-115); Magnesium 1.5 mg/dL (1.7-2.3); Osmolality Calculated 302 mOsm/kg (285-295); Phosphorus 3.8 mg/dL (2.5-4.5); Sodium 143 mmol/L (136-145); Total Bilirubin 0.4 mg/dL (0.15-1.2); Total Protein 5.6 g/dL (6.6-8.7)
[2021-12-08 05:41] LABS: Anion Gap 15.8 (5-19); Aspartate Amino Transferase 19 U/L (0-40); Potassium 3.8 mmol/L (3.5-5.1)
[2021-12-08 06:42] LABS: Glucose Point of Care 213 mg/dL (70-110)
--- NOTE | 2021-12-08 09:11 | P.PN_ITS ---
Subjective Subjective: Pt resting comfortably. Leg pain has improved. Vitals/I&O/Wt Last Vital Signs Temp 98.6 F 12/08/21 07:34 Pulse 72 12/08/21 08:02 Resp 16 12/08/21 08:02 BP 160/79 12/08/21 07:34 Pulse Ox 98 12/08/21 08:02 12/07/21 12/08/21 12/08/21 22:59 06:59 14:59 Intake Total 480 / 1010 Balance 480 / 1010 Physical Exam Narrative: Moves BLE, wiggles toes and fires in all motor groups with 4/5 strength. Feet warm, calves supple, good sensation to light touch. back with mild discomfort to palpation. HENMT: COMMON NORMALS: normocephalic HEAD & SCALP: normocephalic Resp: COMMON NORMALS: normal respiratory effort Cardio: COMMON NORMALS: regular rate and regular rhythm RATE: regular rate RHYTHM: regular rhythm GI: COMMON NORMALS: Soft to palpation PALPATION: Yes Soft to palpation : COMMON NORMALS: Yes no CVA tenderness BLADDER/KIDNEY EXAM: Yes no CVA tenderness Back/Pelvis: COMMON NORMALS: no CVA tenderness Neuro: COMMON NORMALS: moves all extremities Psych: COMMON NORMALS: mental status grossly normal and cooperative Data : 12/08/21 04:24 12/08/21 04:24 Micro: Microbiology 12/06/21 11:41 Blood Culture - Preliminary Blood NEGATIVE TO DATE 12/06/21 11:39 Blood Culture - Preliminary Blood NEGATIVE TO DATE 12/06/21 10:42 Urine Culture - Preliminary Urine,Clean Catch A&P Assessment and plan (1) Spinal stenosis, lumbar region, with neurogenic claudication: Discussed treatment options which involved Injections or Surgical Fusion. Patient would like to discuss with family. Dr shore called [email or web address] to discuss as well. F/U in the office orthopedic spinne office in 1-2 wks to further discuss options. Physical Therapy to Eval. Status: Acute (2) DDD (degenerative disc disease), lumbar: Status: Acute Attestations Medical Necessity Statement*: defer to medical team Coding Level of Care Code Established Pt Acute Senior Technical Manager for [facility] Fwd Patient Type Established History Problem Focused Exam Problem Focused Medical Decision Making Moderate Complexity Diagnoses Spinal stenosis, lumbar region, with neurogenic claudication M48.062 DDD (degenerative disc disease), lumbar M51.36 Time Spent (min) 30
[2021-12-08] MEDS: gabapentin 300 mg Capsule 600 MG PO ×3 (10:35→20:20)
[2021-12-08] MEDS: sotalol 80 mg Tablet PO ×2 (10:35→20:44)
[2021-12-08] MEDS: insulin lispro 100 unit/1 mL SUBCUT ×3 (10:35→18:19)
[2021-12-08] MEDS: pyridostigmine 60 mg Tablet 30 MG PO ×3 (10:36→20:20)
[2021-12-08] MEDS: magnesium sulfate premix 2 GM/50 ML PIGGYBACK IV (10:38)
[2021-12-08 11:11] LABS: Glucose Point of Care 305 mg/dL (70-110)
[2021-12-08] MEDS: cefTRIAXone 1,000 MG in sodium chloride 0.9% (plus) 50 ML 100 MG IV (13:49)
--- NOTE | 2021-12-08 14:23 | P.PN_ITS ---
Subjective Subjective: Patient was seen this morning, he sitting up beside the bed, enjoying breakfast, he is unsure about doing back surgery, he will talk to his daughter, he tells me that he is working well with physical therapy Vitals/I&O/Wt Last Vital Signs Temp 98.6 F 12/08/21 07:34 Pulse 72 12/08/21 08:02 Resp 16 12/08/21 08:02 BP 160/79 12/08/21 07:34 Pulse Ox 98 12/08/21 08:02 12/07/21 12/08/21 12/08/21 22:59 06:59 14:59 Intake Total 480 / 1010 Balance 480 / 1010 Physical Exam Const: COMMON NORMALS: no acute distress and patient oriented x3 Resp: COMMON NORMALS: normal respiratory effort, No retractions, No use of accessory muscles and clear to auscultation bilaterally AUSCULTATION: clear to auscultation bilaterally Cardio: COMMON NORMALS: regular rate, regular rhythm, S1 normal heart sound present and S2 normal heart sound present RATE: regular rate RHYTHM: regular rhythm HEART SOUNDS: S1 normal heart sound present and S2 normal heart sound present GI: COMMON NORMALS: Normal to inspection, nondistended, normoactive bowel sounds present, Soft to palpation, non-tender and No hepatosplenomegaly present PALPATION: Yes Soft to palpation and Yes No hepatosplenomegaly present Extremity: COMMON NORMALS: no pedal edema Neuro: COMMON NORMALS: patient oriented x3 Psych: COMMON NORMALS: mental status grossly normal Data : 12/08/21 04:24 12/08/21 04:24 Micro: Microbiology 12/06/21 10:42 Urine Culture - Final Urine,Clean Catch 12/06/21 11:41 Blood Culture - Preliminary Blood NEGATIVE TO DATE 12/06/21 11:39 Blood Culture - Preliminary Blood NEGATIVE TO DATE A&P Assessment and plan (1) Spinal stenosis, lumbar region, with neurogenic claudication: Status: Acute (2) DDD (degenerative disc disease), lumbar: Status: Acute (3) Atrial fibrillation: Status: Chronic Qualifiers: Atrial fibrillation type: paroxysmal Qualified Code(s): I48.0 - Paroxysmal atrial fibrillation (4) Chronic anticoagulation: Status: Chronic (5) Diabetes mellitus, type II: Status: Chronic Qualifiers: Diabetes mellitus intermediate designer insulin use: with intermediate designer use Diabetes mellitus complication status: with neurologic complications Diabetes mellitus complication detail: with polyneuropathy Qualified Code(s): E11.42 - Type 2 diabetes mellitus with diabetic polyneuropathy; 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 of insulin (6) Intermittent self-catheterization of bladder: Status: Chronic (7) Anemia: Status: Chronic Qualifiers: Anemia type: other cause Other causes of anemia: chronic disease, other Qualified Code(s): D63.8 - Anemia in other chronic diseases classified elsewhere (8) Dizziness: Status: Acute Plan Patient current symptoms Ataxia Dizziness Orthostatic hypotension Right leg weakness Weakness getting worse after some activity Dysphagia Differential diagnosis myasthenia gravis Metformin toxicity Plan We will send antibody test have him follow-up outpatient with neurology Continue pyridostigmine for possible myasthenia gravis and orthostatic hy potension treatment For Metformin toxicity he does not need any active topical treatment or dialysis Ketones positive, not acidotic This most likely is consistent with Metformin related toxicity He should not take Metformin anymore Metformin is not related to hypotension however with toxicity metabolism changes and patient does show positive ketones and hypoglycemia which he has been doing in last few months Nonfocal neuro deficit Right leg weakness after walking a few steps Lumbar MRI shows 1.? Right L2-3, right L3-4, and right L4-5 hemilaminectomies are new from previous. 2.? Mild lumbar curve. No acute compression. Slight retrolisthesis L2 on L3 with disc desiccation. 3.? Central canal stenosis L2-L3 appears improved from previous. 4.? Moderate residual central canal stenosis L3-4 appears slightly improved from previous. However, new small 10 mm right synovial cyst, just below the l aminectomy defects, impinges the right dorsal thecal sac contributing to central canal stenosis. 5.? Improved mild central canal stenosis L4-5. 6.? Severe right L2-3 foraminal narrowing impinges the exiting right L2 nerve root. 7.? Mild to moderate right L3-4 foraminal narrowing. Mild right L4-5 foraminal narrowing. 8.? Moderate to advanced facet arthropathy L2-L3, L3-L4, L4-L5. This is worse at L4-5. Likely patient's right lower extremity weakness is from severe nerve impingement on the right He does tell me that he is fallen multiple times, Lumbar spinal CT shows 1.? Overall no significant changes compared to the MRI May 10, 2021 2.? No acute fractures. 3.? Slight anterolisthesis L4 on L5 and retrolisthesis L2 on L3 unchanged from prior studies. Disc space narrowing worse at L2-L3 with endplate degenerative changes. 4.? Moderate residual central canal stenosis L2-L3 L3-L4 and L4-L5 unchanged since the prior MRI 03/25. Prior hemilaminectomies at these levels. 5.? Severe RIGHT L2-L3 foraminal narrowing impinges the exiting RIGHT L2 nerve root. Impingement on the traversing RIGHT L3 nerve root. 6.? Moderate RIGHT L3-L4 and mild to moderate RIGHT L4-L5 foraminal narrowing. 7.? Advanced facet arthropathy L2-L3, L3-L4, and L4-L5. -Likely cause of patient's right leg weakness is severe impingement on the right -Consult Dr. Smith, medical management will, will consider outpatient surgery No urinary incontinence, no bowel incontinence, no saddle or perineal anesthesia CT of the head no acute stroke, UA does show significant leukocytosis, RBC, history of stent placement then rem oval, instructed Adam, CT abdomen negative for renal stone stone, continue Rocephin for antibiotic coverage Atrial fibrillation continue Betapace, continue Xarelto Sliding scale Consistent carb diet Added pyridostigmine for orthostasis Leukocytosis, lactic acidosis, transaminases: Improved with IV fluid hydration, continue to monitor Full code PT OT, speech therapy eval Self-catheterization, continue Proceeding with prison placement Attestations Medical Necessity Statement*: Patient requires hospitalization for generalized weakness, right lower extremity weakness Coding Level of Care Code Acute Manager Interventional for [facility] Fwd Diagnoses Spinal stenosis, lumbar region, with neurogenic claudication M48.062 DDD (degenerative disc disease), lumbar M51.36 Atrial fibrillation I48.0 Atrial fibrillation type: paroxysmal Chronic anticoagulation Z79.01 Diabetes mellitus, type II E11.42; Z79.4 Diabetes mellitus usp insulin use: with intermediate designer use Diabetes mellitus complication status: with neurologic complications Diabetes mellitus complication detail: with polyneuropathy Intermittent self-catheterization of bladder Z78.9 Anemia D63.8 Anemia type: other cause Other causes of anemia: chronic disease, other Dizziness R42
[2021-12-08 17:05] LABS: Glucose Point of Care 257 mg/dL (70-110)
[2021-12-08 19:17] LABS: Glucose Point of Care 234 mg/dL (70-110)
[2021-12-08] MEDS: tamsulosin 0.4 mg Capsule PO (20:19)
[2021-12-08] MEDS: atorvastatin 40 mg Tablet 80 MG PO (20:19)
[2021-12-08] MEDS: insulin glargine 100 units/1 mL 10 UNIT SUBCUT (20:20)
[2021-12-08] MEDS: rivaroxaban 10 mg Tablet 15 MG PO (20:21)
[2021-12-08 21:34] LABS: Glucose Point of Care 254 mg/dL (70-110)
[2021-12-09] VITALS (7 sets, daily range): BP systolic 113–171; BP diastolic 66–82; PULSE 57–83; RESP 16–20; TEMP 36.4–37.1; O2SAT 95–98
[2021-12-09 04:57] LABS: Basophils # 0.1 10^3/uL (0.0-0.1); Basophils % 0.9 %; Eosinophils # 0.4 10^3/uL (0.0-0.8); Eosinophils % 5.3 %; Hematocrit 29.6 % (42.0-52.0); Hemoglobin 9.1 g/dL (11.7-16.6); Lymphocytes # 2.1 10^3/uL (0.8-4.8); Lymphocytes % 27.8 %; Mean Corpuscular HGB Conc 30.7 g/dL (30.0-36.0); Mean Corpuscular Volume 87.8 fl (80-94); Mean Platelet Volume 10.5 fL (7.4-10.4); Monocytes # 0.6 10^3/uL (0.2-0.9); Monocytes % 7.4 %; Neutrophils # 4.49 10^3/uL (1.8-7.7); Neutrophils % 58.2 %; Nucleated Red Blood Cells % 0 %; Platelet Count 217 10^3/cmm (130-400); Red Blood Count 3.37 10^6/uL (4.1-5.3); White Blood Count 7.7 10^3/uL (4.0-10.0)
[2021-12-09 05:20] LABS: Alanine Aminotransferase 7 U/L (0-41); Albumin Level 3.1 g/dL (3.5-5.2); Alkaline Phosphatase 75 IU/L (40-130); Anion Gap 13.7 (5-19); Aspartate Amino Transferase 11 U/L (0-40); Blood Urea Nitrogen 12 mg/dL (8-23); Calcium 7.9 mg/dL (8.5-10.5); Carbon Dioxide 27 mmol/L (22-29); Chloride 104 mmol/L (98-107); Globulin 2.4 g/dL (1.3-4.6); Glucose 269 mg/dL (65-115); Magnesium 1.8 mg/dL (1.7-2.3); Osmolality Calculated 301 mOsm/kg (285-295); Phosphorus 3.5 mg/dL (2.5-4.5); Potassium 3.7 mmol/L (3.5-5.1); Sodium 141 mmol/L (136-145); Total Bilirubin 0.3 mg/dL (0.15-1.2); Total Protein 5.5 g/dL (6.6-8.7)
[2021-12-09] MEDS: HYDROcodone-acetaminophen 5-325 mg Tablet 1 TAB PO (06:42)
[2021-12-09] MEDS: insulin lispro 100 unit/1 mL SUBCUT ×2 (08:44→19:23)
[2021-12-09] MEDS: pyridostigmine 60 mg Tablet 30 MG PO ×3 (08:45→20:47)
[2021-12-09] MEDS: sotalol 80 mg Tablet PO ×2 (08:45→20:51)
[2021-12-09] MEDS: gabapentin 300 mg Capsule 600 MG PO ×3 (08:45→20:47)
--- NOTE | 2021-12-09 08:54 | PC.SOCIAL ---
Pg 2 IMM. Explained to pt Pg 2 IMM. No questions voiced. Provided pt a copy. Initialed, dated, & timed a copy & placed in chart.
[2021-12-09 11:37] LABS: Glucose Point of Care 266 mg/dL (70-110)
--- NOTE | 2021-12-09 14:33 | P.PN_ITS ---
Subjective Subjective: Patient was seen this morning, sitting up in bed, enjoying breakfast, he tells me that he is doing better with physical therapy, he is awaiting jail placement Vitals/I&O/Wt Last Vital Signs Temp 98.2 F 12/09/21 12:00 Pulse 83 12/09/21 12:00 Resp 18 12/09/21 12:00 BP 113/66 12/09/21 12:00 Pulse Ox 98 12/09/21 12:00 12/08/21 12/09/21 12/09/21 22:59 06:59 14:59 Intake Total 550 / 770 600 / 1370 240 / 240 Balance 550 / 770 600 / 1370 240 / 240 Physical Exam Const: COMMON NORMALS: no acute distress and patient oriented x3 Resp: COMMON NORMALS: normal respiratory effort, No retractions, No use of accessory muscles and clear to auscultation bilaterally AUSCULTATION: clear to auscultation bilaterally Cardio: COMMON NORMALS: regular rate, regular rhythm, S1 normal heart sound present and S2 normal heart sound present RATE: regular rate RHYTHM: re gular rhythm HEART SOUNDS: S1 normal heart sound present and S2 normal heart sound present GI: COMMON NORMALS: Normal to inspection, nondistended, normoactive bowel sounds present, Soft to palpation, non-tender and No hepatosplenomegaly present PALPATION: Yes Soft to palpation and Yes No hepatosplenomegaly present Extremity: COMMON NORMALS: no pedal edema Neuro: COMMON NORMALS: patient oriented x3 Psych: COMMON NORMALS: mental status grossly normal Data : 12/09/21 04:20 12/09/21 04:20 Micro: Microbiology 12/04/21 13:43 Blood Culture - Final Blood NO GROWTH AFTER 5 DAYS 12/04/21 12:39 Blood Culture - Final Blood NO GROWTH AFTER 5 DAYS 12/08/21 01:45 C.difficile Toxin B Gene (PCR) - Final Stool 12/06/21 10:42 Urine Culture - Final Urine,Clean Catch A&P Assessment and plan (1) Spinal stenosis, lumbar region, with neurogenic claudication: Status: Acute (2) DDD (degenerative disc disease), lumbar: Status: Acute (3) Atrial fibrillation: Status: Chronic Qualifiers: Atrial fibrillation type: paroxysmal Qualified Code(s): I48.0 - Paroxysmal atrial fibrillation (4) Chronic anticoagulation: Status: Chronic (5) Diabetes mellitus, type II: Status: Chronic Qualifiers: 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 mellitus 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 insulin use: with 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 use Diabetes mellitus complication status: with neurologic complications Diabetes mellitus complication detail: with polyneuropathy Qualified Code(s): E11.42 - Type 2 diabetes mellitus with diabetic polyneuropathy; Z79.4 - detention (current) use of insulin (6) Intermittent self-catheterization of bladder: Status: Chronic (7) Anemia: Status: Chronic Qualifiers: Anemia type: other cause Other causes of anemia: chronic disease, other Qualified Code(s): D63.8 - Anemia in other chronic diseases classified elsewhere (8) Dizziness: Status: Acute Plan Patient current symptoms Ataxia Dizziness Orthostatic hypotension Right leg weakness Weakness getting worse after some activity Dysphagia Differential diagnosis myasthenia gravis Metformin toxicity Plan We will send antibody test have him follow-up outpatient with neurology Continue pyridostigmine for possible myasthenia gravis and orthostatic hypotension treatment, although I feel unlikely For Metformin toxicity he does not need any active topical treatment or dialysis Ketones positive, not acidotic This most likely is consistent with Metformin related toxicity He should not take Metformin anymore Metformin is not related to hypotension however with toxicity metabolism changes and patient does show positive ketones and hypoglycemia which he has been doing in last few months Nonfocal neuro deficit Right leg weakness after walking a few steps Lumbar MRI shows 1.? Right L2-3, right L3-4, and right L4-5 hemilaminectomies are new from previous. 2.? Mild lumbar curve. No acute compression. Slight retrolisthesis L2 on L3 with disc desiccation. 3.? Central canal stenosis L2-L3 appears improved from previous. 4.? Moderate residual central canal stenosis L3-4 appears slightly improved from previous. However, new small 10 mm right synovial cyst, just below the laminectomy defects, impinges the right dorsal thecal sac contributing to central canal stenosis. 5.? Improved mild central canal stenosis L4-5. 6.? Severe right L2-3 foraminal narrowing impinges the exiting right L2 nerve root. 7.? Mild to moderate right L3-4 foraminal narrowing. Mild right L4-5 foraminal narrowing. 8.? Moderate to advanced facet arthropathy L2-L3, L3-L4, L4-L5. This is worse at L4-5. Likely patient's right lower extremity weakness is from severe nerve impingement on the right He does tell me that he is fallen multiple times, Lumbar spinal CT shows 1.? Overall no significant changes compared to the MRI May 10, 2021 2.? No acute fractures. 3.? Slight anterolisthesis L4 on L5 and retrolisthesis L2 on L3 unchanged from prior studies. Disc space narrowing worse at L2-L3 with endplate degenerative changes. 4.? Moderate residual central canal stenosis L2-L3 L3-L4 and L4-L5 unchanged sin ce the prior MRI 03/25. Prior hemilaminectomies at these levels. 5.? Severe RIGHT L2-L3 foraminal narrowing impinges the exiting RIGHT L2 nerve root. Impingement on the traversing RIGHT L3 nerve root. 6.? Moderate RIGHT L3-L4 and mild to moderate RIGHT L4-L5 foraminal narrowing. 7.? Advanced facet arthropathy L2-L3, L3-L4, and L4-L5. -Likely cause of patient's right leg weakness is severe impingement on the right -Consult Dr. Smith, medical management will, will consider outpatient surgery No urinary incontinence, no bowel incontinence, no saddle or perineal anesthesia CT of the head no acute stroke, UA does show significant leukocytosis, RBC, history of stent placement then removal, instructed Adam, CT abdomen negative for renal stone stone, continue Rocephin for antibiotic coverage has been discontinued as cultures are negative Atrial fibrillation continue Betapace, continue Xarelto Sliding scale Consistent carb diet Added pyridostigmine for orthostasis Leukocytosis, lactic acidosis, transaminases: Improved with IV fluid hydration, continue to monitor Full code PT OT, speech therapy eval Self-catheterization, continue Proceeding with jail placement Attestations Medical Necessity Statement*: Patient requires hospitalization for lower extremity weakness Coding Level of Care Code 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 [employer] Fwd Diagnoses Spinal stenosis, lumbar region, with neurogenic claudication M48.062 DDD (degenerative disc disease), lumbar M51.36 Atrial fibrillation I48.0 Atrial fibrillation type: paroxysmal Chronic anticoagulation Z79.01 Diabetes mellitus, type II E11.42; Z79.4 Diabetes mellitus 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 insulin use: with 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 use Diabetes mellitus complication status: with neurologic complications Diabetes mellitus complication detail: with polyneuropathy Intermittent self-catheterization of bladder Z78.9 Anemia D63.8 Anemia type: other cause Other causes of anemia: chronic disease, other Dizziness R42
[2021-12-09 17:03] LABS: Glucose Point of Care 337 mg/dL (70-110)
[2021-12-09] MEDS: tamsulosin 0.4 mg Capsule PO (20:47)
[2021-12-09] MEDS: atorvastatin 40 mg Tablet 80 MG PO (20:47)
[2021-12-09] MEDS: rivaroxaban 10 mg Tablet 15 MG PO (20:48)
[2021-12-09 21:23] LABS: Glucose Point of Care 236 mg/dL (70-110)
[2021-12-09] MEDS: insulin glargine 100 units/1 mL 10 UNIT SUBCUT (21:49)
[2021-12-10 00:39] VITALS: BP 126/73; PULSE 62; RESP 18; TEMP 37.1; O2SAT 93
[2021-12-10 03:25] LABS: Basophils % 0.4 %; Eosinophils # 0.5 10^3/uL (0.0-0.8); Eosinophils % 5.3 %; Hematocrit 28.8 % (42.0-52.0); Hemoglobin 8.9 g/dL (11.7-16.6); Lymphocytes # 2.6 10^3/uL (0.8-4.8); Lymphocytes % 27.9 %; Mean Corpuscular HGB Conc 30.9 g/dL (30.0-36.0); Mean Corpuscular Hemoglobin 26.9 pg (28.0-34.0); Mean Platelet Volume 10.4 fL (7.4-10.4); Monocytes # 0.7 10^3/uL (0.2-0.9); Monocytes % 7.3 %; Neutrophils # 5.39 10^3/uL (1.8-7.7); Neutrophils % 58.9 %; Nucleated Red Blood Cells % 0 %; Platelet Count 214 10^3/cmm (130-400); Red Blood Count 3.31 10^6/uL (4.1-5.3); White Blood Count 9.2 10^3/uL (4.0-10.0)
[2021-12-10 03:44] LABS: Alanine Aminotransferase 7 U/L (0-41); Albumin Level 3.3 g/dL (3.5-5.2); Alkaline Phosphatase 77 IU/L (40-130); Anion Gap 14.4 (5-19); Aspartate Amino Transferase 10 U/L (0-40); Blood Urea Nitrogen 10 mg/dL (8-23); Calcium 8.7 mg/dL (8.5-10.5); Carbon Dioxide 26 mmol/L (22-29); Chloride 104 mmol/L (98-107); Globulin 2.3 g/dL (1.3-4.6); Glucose 217 mg/dL (65-115); Osmolality Calculated 298 mOsm/kg (285-295); Potassium 3.4 mmol/L (3.5-5.1); Sodium 141 mmol/L (136-145); Total Bilirubin 0.4 mg/dL (0.15-1.2); Total Protein 5.6 g/dL (6.6-8.7)
[2021-12-10 03:58] VITALS: BP 137/68; PULSE 60; RESP 23; TEMP 37.2; O2SAT 97
[2021-12-10 06:38] LABS: Glucose Point of Care 218 mg/dL (70-110)
[2021-12-10 07:43] VITALS: BP 155/72; PULSE 55; RESP 18; TEMP 36.7; O2SAT 97
[2021-12-10 08:00] VITALS: BP 155/72; PULSE 55; RESP 18; TEMP 36.7
[2021-12-10] MEDS: pyridostigmine 60 mg Tablet 30 MG PO (08:26)
[2021-12-10] MEDS: gabapentin 300 mg Capsule 600 MG PO (08:26)
[2021-12-10] MEDS: sotalol 80 mg Tablet PO (08:26)
[2021-12-10] MEDS: insulin lispro 100 unit/1 mL SUBCUT ×2 (08:26→11:06)
[2021-12-10 10:52] VITALS: PULSE 63; RESP 16; O2SAT 96
--- NOTE | 2021-12-10 11:09 | PM.DCS ---
Discharge Providers Date of Admission: 12/06/21 14:06 Date of Discharge: December 10, 2021 Attending Provider at Admission: Itzel Colon MD Attending Provider at Discharge: Omari Lopez MD Primary Care Provider: Trisha Urena MD Diagnoses at Discharge Discharge Diagnosis (1) Spinal stenosis, lumbar region, with neurogenic claudication: Status: Acute (2) DDD (degenerative disc disease), lumbar: Status: Acute (3) Atrial fibrillation: Status: Chronic Qualifiers: Atrial fibrillation type: paroxysmal Qualified Code(s): I48.0 - Paroxysmal atrial fibrillation (4) Chronic anticoagulation: Status: Chronic Permanent problem details: Xarelto secondary to atrial fibrillation (5) Diabetes mellitus, type II: Status: Chronic Qualifiers: Diabetes mellitus 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 renewal inspector insulin use: with termite renewal inspector use Diabetes mellitus complication status: with neurologic complications Diabetes mellitus complication detail: with polyneuropathy Qualified Code(s): E11.42 - Type 2 diabetes mellitus with diabetic polyneuropathy; Z79.4 - senior care (current) use of insulin (6) Intermittent self-catheterization of bladder: Status: Chronic Permanent problem details: due to urinary retention (7) Anemia: Status: Chronic Qualifiers: Anemia type: other cause Other causes of anemia: chronic disease, other Qualified Code(s): D63.8 - Anemia in other chronic diseases classified elsewhere (8) Dizziness: Status: Acute Reason for Visit Reason for Visit: HYPOTENSION Hospital Course Hospital Course This is a 71-year-old male with a past medical history of type 2 diabetes mellitus, atrial fibrillation on anticoagulation Xarelto, degenerative disc disease of the lumbar spine, BPH, who self caths himself, who presents to [facility] due to dizziness and low blood pressures Patient was admitted to [facility] for multiple reasons: -Elevated lactic acidosis, likely secondary to Metformin, ketones positive, not acidotic, likely Metformin related toxicity, Metformin discontinued on discharge Dizziness, low blood pressure, likely secondary to peripheral neuropathy, from severe lumbar disc disease, will need to follow-up with Dr. Glaser as outpatient. He was initially treated for a UTI, urine cultures have been unremarkable, blood cultures unremarkable, CT scan abdomen pelvis shows no obstructive uropathy, CT of the head negative for acute CVA Patient did have complaints of acute on chronic right lower extremity weakness, and in bilateral lower extremity weakness. Also reports chronic falls, related to his weakness, unsteadiness, his daughter ambulates with him with a gait belt Nonfocal neuro deficit Right leg weakness after walking a few steps Lumbar MRI shows 1.? Right L2-3, right L3-4, and right L4-5 hemilaminectomies are new from previous. 2.? Mild lumbar curve. No acute compression. Slight retrolisthesis L2 on L3 with disc desiccation. 3.? Central canal stenosis L2-L3 appears improved from previous. 4.? Moderate residual central canal stenosis L3-4 appears slightly improved from previous. However, new small 10 mm right synovial cyst, just below the laminectomy defects, impinges the right dorsal thecal sac contributing to central canal stenosis. 5.? Improved mild central canal stenosis L4-5. 6.? Severe right L2-3 foraminal narrowing impinges the exiting right L2 nerve root. 7.? Mild to moderate right L3-4 foraminal narrowing. Mild right L4-5 foraminal narrowing. 8.? Moderate to advanced facet arthropathy L2-L3, L3-L4, L4-L5. This is worse at L4-5. Likely patient's right lower extremity weakness is from severe nerve impingement on the right He does tell me that he is fallen multiple times, Lumbar spinal CT shows 1.? Overall no significant changes compared to the MRI May 10, 2021 2.? No acute fractures. 3.? Slight anterolisthesis L4 on L5 and retrolisthesis L2 on L3 unchanged from prior studies. Disc space narrowing worse at L2-L3 with endplate degenerative changes. 4.? Moderate residual central canal stenosis L2-L3 L3-L4 and L4-L5 unchanged since the prior MRI 03/25. Prior hemilaminectomies at these levels. 5.? Severe RIGHT L2-L3 foraminal narrowing impinges the exiting RIGHT L2 nerve root. Impingement on the traversing RIGHT L3 nerve root. 6.? Moderate RIGHT L3-L4 and mild to moderate RIGHT L4-L5 foraminal narrowing. 7.? Advanced facet arthropathy L2-L3, L3-L4, and L4-L5. -Likely cause of patient's right leg weakness is severe impingement on the right -Consult Dr. Smith, after discussion with patient, patient would like to elect for medical management, physical therapy, follow-up with Dr. Smith as outpatient for consideration of surgery No urinary incontinence, no bowel incontinence, no saddle or perineal anesthesia CT of the head no acute stroke, We will discharge patient senior living for PT OT, rehab, with follow-up with Dr. Smith as outpatient During his hospitalization there were concerns for possible myasthenia gravis playing a role in patient's weakness and hypotension. Although I feel unlikely he was nonetheless started on p.o. pyridostigmine, which I will discharge him on a month supply, he will follow-up with Dr. Glaser for consideration of continuing pyridostigmine. He also had myasthenia antibodies ordered, follow-up with Dr. Glaser as outpatient for test results. Physical Exam Const: COMMON NORMALS: no acute distress and patient oriented x3 Resp: COMMON NORMALS: normal respiratory effort, No retractions, No use of accessory muscles and clear to auscultation bilaterally AUSCULTATION: clear to auscultation bilaterally Cardio: COMMON NORMALS: regular rate, regular rhythm, S1 normal heart sound present and S2 normal heart sound present RATE: regular rate RHYTHM: regular rhythm HEART SOUNDS: S1 normal heart sound present and S2 normal heart sound present GI: COMMON NORMALS: Normal to inspection, nondistended, normoactive bowel sounds present, Soft to palpation, non-tender and No hepatosplenomegaly present PALPATION: Yes Soft to palpation and Yes No hepatosplenomegaly present Extremity: COMMON NORMALS: no pedal edema Neuro: COMMON NORMALS: patient oriented x3 Psych: COMMON NORMALS: mental status grossly normal Discharge Data Studies Completed and Pending Completed Studies During Hospitalization Category Date Time Status CT abdomen renal stone [CT kidney stone [id number]] Routine Cat Scan 12/06/21 14:[address] head wo con* [id number] Routine Cat Scan 12/06/21 14:[address] lumbar spine wo con* [id number] Routine Cat Scan 12/06/21 14:12 Completed XR KUB [id number] Routine Exams 12/04/21 18:30 Completed XR chest 1V portable [id number] Urgent Exams 12/04/21 11:08 Completed XR pelvis 1-2V* [id number] Routine Exams 12/04/21 18:30 Completed Pending at discharge Category Date Time Status Acetylcholine Recept Modulatin Routine Lab 12/05/21 15:13 Received Acetylcholine Receptor Binding Routine Lab 12/05/21 15:13 Received Acetylcholine Receptor Block Routine Lab 12/05/21 15:13 Received Beta-Hydroxybutyrate Routine Lab 12/04/21 20:14 Received Blood Culture Stat Lab 12/06/21 11:41 Results COVID [SARS Covid-2 Antigen] Routine Lab 12/10/21 10:50 Uncollected Complete Blood Count w/Auto AM LABS Lab 12/11/21 04:00 Ordered Complete Blood Count w/Auto AM LABS Lab 12/12/21 04:00 Ordered Comprehensive Metabolic Panel AM LABS Lab 12/11/21 04:00 Ordered Comprehensive Metabolic Panel AM LABS Lab 12/12/21 04:00 Ordered Radiology Impressions Chest X-Ray 12/04/21 11:08 Impression: Significant clearing of patchy left lower lobe opacity. KUB X-Ray 12/04/21 18:30 Impression: Negative KUB. Pelvis X-Ray 12/04/21 18:30 Impression: 1. Negative for pelvic or hip fracture. 2. Osteoarthritis of both hips. Abdomen/Pelvis CT 12/06/21 14:05 IMPRESSION: 1. No obstructing renal or ureteral calculi. No hydronephrosis. 2. Sigmoid diverticulosis. No evidence of acute diverticulitis. 3. Prostate enlargement.Correlation PSA. 4. No other acute findings. Lumbar Spine CT 12/06/21 14:12 IMPRESSION: 1. Overall no significant changes compared to the MRI May 10, 2021 2. No acute fractures. 3. Slight anterolisthesis L4 on L5 and retrolisthesis L2 on L3 unchanged from prior studies. Disc space narrowing worse at L2-L3 with endplate degenerative changes. 4. Moderate residual central canal stenosis L2-L3 L3-L4 and L4-L5 unchanged since the prior MRI 03/25. Prior hemilaminectomies at these levels. 5. Severe RIGHT L2-L3 foraminal narrowing impinges the exiting RIGHT L2 nerve root. Impingement on the traversing RIGHT L3 nerve root. 6. Moderate RIGHT L3-L4 and mild to moderate RIGHT L4-L5 foraminal narrowing. 7. Advanced facet arthropathy L2-L3, L3-L4, and L4-L5. Head CT 12/06/21 14:15 IMPRESSION: 1. No evidence of intracranial hemorrhage or mass effect. 2. Mild small vessel changes with moderate parenchymal volume loss. 3. Intracranial vascular calcification. 4. No acute intracranial findings. Laboratory Results WBC 9.2 10^3/uL (4.0-10.0) 12/10/21 03:10 RBC 3.31 10^6/uL (4.1-5.3) L 12/10/21 03:10 Hgb 8.9 g/dL (11.7-16.6) L 12/10/21 03:10 Hct 28.8 % (42.0-52.0) L 12/10/21 03:10 MCV 87.0 fl (80-94) 12/10/21 03:10 MCH 26.9 pg (28.0-34.0) L 12/10/21 03:10 MCHC 30.9 g/dL (30.0-36.0) 12/10/21 03:10 RDW 17.0 % (12.1-15.1) H 12/10/21 03:10 Plt Count 214 10^3/cmm (130-400) 12/10/21 03:10 MPV 10.4 fL (7.4-10.4) 12/10/21 03:10 Neut % (Auto) 58.9 % 12/10/21 03:10 Lymph % (Auto) 27.9 % 12/10/21 03:10 [place] % (Auto) 7.3 % 12/10/21 03:10 Eos % (Auto) 5.3 % 12/10/21 03:10 Baso % (Auto) 0.4 % 12/10/21 03:10 Neut # (Auto) 5.39 10^3/uL (1.8-7.7) 12/10/21 03:10 Lymph # (Auto) 2.6 10^3/uL (0.8-4.8) 12/10/21 03:10 [place] # (Auto) 0.7 10^3/uL (0.2-0.9) 12/10/21 03:10 Eos # (Auto) 0.5 10^3/uL (0.0-0.8) 12/10/21 03:10 Baso # (Auto) 0.0 10^3/uL (0.0-0.1) 12/10/21 03:10 Nucleated RBC % (auto) 0 % 12/10/21 03:10 Nucleated RBCs # 0.0 /100WBC 12/10/21 03:10 PT 17.30 SECONDS (12.1-14.9) H 12/04/21 20:14 INR 1.38 (0.8-1.2) H 12/04/21 20:14 APTT 33.6 SECONDS (23.9-36.7) 12/04/21 20:14 Fibrinogen 469 mg/dL (174-498) 12/04/21 20:14 Sodium 141 mmol/L (136-145) 12/10/21 03:10 Potassium 3.4 mmol/L (3.5-5.1) L 12/10/21 03:10 Chloride 104 mmol/L (98-107) 12/10/21 03:10 Carbon Dioxide 26 mmol/L (22-29) 12/10/21 03:10 Anion Gap 14.4 (5-19) 12/10/21 03:10 BUN 10 mg/dL (8-23) 12/10/21 03:10 Creatinine 0.6 mg/dL (0.7-1.2) L 12/10/21 03:10 GFR Calculation Not Reportable 12/10/21 03:10 Glucose 217 mg/dL (65-115) H 12/10/21 03:10 POC Glucose 218 mg/dL (70-110) H 12/10/21 06:34 Calculated Osmolality 298 mOsm/kg (285-295) H 12/10/21 03:10 Lactate 1.8 mmol/L (0.5-2.2) 12/04/21 20:14 Calcium 8.7 mg/dL (8.5-10.5) 12/10/21 03:10 Phosphorus 3.5 mg/dL (2.5-4.5) 12/09/21 04:20 Magnesium 1.8 mg/dL (1.7-2.3) 12/09/21 04:20 Total Bilirubin 0.4 mg/dL (0.15-1.2) 12/10/21 03:10 AST 10 U/L (0-40) 12/10/21 03:10 ALT 7 U/L (0-41) 12/10/21 03:10 Alkaline Phosphatase 77 IU/L (40-130) 12/10/21 03:10 Creatine Kinase 36 U/L (39-308) L 12/05/21 03:11 Troponin T Baseline 49 ng/L (0-15) H 12/04/21 11:48 Troponin T 120 Minute 46.98 ng/L (0-15) H 12/04/21 13:43 Delta Troponin T -2.02 ABS# (0-10) L 12/04/21 13:43 Troponin T Hi Sens 6Hr 52.42 ng/L (0-15) H 12/04/21 20:14 Troponin T Hi Sens 6Hr Delta 3.42 ng/L (0-12) 12/04/21 20:14 C-Reactive Protein 17.0 mg/L (0.0-4.9) H 12/05/21 03:11 NT-Pro-B Natriuret Pep 482 pg/mL (0-125) H 12/04/21 11:48 Total Protein 5.6 g/dL (6.6-8.7) L 12/10/21 03:10 Albumin 3.3 g/dL (3.5-5.2) L 12/10/21 03:10 Globulin 2.3 g/dL (1.3-4.6) 12/10/21 03:10 Vitamin B12 339 pg/mL (232-1245) 12/04/21 20:14 Procalcitonin 0.10 ng/mL (0-0.5) 12/04/21 20:14 TSH 0.95 uIU/mL (0.27-4.20) 12/04/21 11:48 Urine Color Yellow (Yellow) 12/06/21 10:42 Urine Appearance Clear (CLEAR) 12/06/21 10:42 Urine pH 5 (5-7) 12/06/21 10:42 Ur Specific [place] 1.015 (1.005-1.030) 12/06/21 10:42 Urine Protein 1+ (Negative) H 12/06/21 10:42 Urine Glucose (UA) 2+ (Normal) H 12/06/21 10:42 Urine Ketones Negative (Negative) 12/06/21 10:42 Urine Blood 2+ (Negative) H 12/06/21 10:42 Urine Nitrate Negative (Negative) 12/06/21 10:42 Urine Bilirubin Neg (Negative) 12/06/21 10:42 Urine Urobilinogen Norm mg/dL (Negative) 12/06/21 10:42 Ur Leukocyte Esterase 2+ (Negative) H 12/06/21 10:42 Urine RBC 15-25 /hpf (0-2) H 12/06/21 10:42 Urine WBC 25-40 /hpf (0-5) H 12/06/21 10:42 Ur Squamous Epith Cells Rare /hpf (0-5) 12/06/21 10:42 Amorphous Sediment Not Reportable 12/06/21 10:42 Urine Bacteria Trace /hpf (NONE) 12/06/21 10:42 Digoxin 1.6 ng/mL (0.6-1.2) H 12/05/21 03:11 Serum Ketones Positive (Negative) H 12/04/21 20:14 SARS-CoV-2 Ag (Rapid) Negative (Negative) 12/04/21 11:50 Vitals Last Vital Signs Temp 98.1 F 12/10/21 08:00 Pulse 63 12/10/21 10:52 Resp 16 12/10/21 10:52 BP 155/72 12/10/21 08:00 Pulse Ox 96 12/10/21 10:52 Discharge Plan Discharge Patient Disposition: Xfer SNF Condition: Stable Prescriptions: New pyridostigmine bromide 60 mg Tablet 30 mg PO TID 30 Days Qty: 45 0RF Continued omega-3 fatty acids [Fish Oil Concentrate] 1,000 mg capsule 1,000 mg PO BID 0RF cholecalciferol (vitamin D3) [Vitamin D3] 25 mcg (1,000 unit) capsule See Rx Instructions .ROUTE .COMPLEX 0RF Rx Instructions: 2000 units po qam and 1000 units at bedtime (DME) water aerobics See Rx Instructions .Route .MEDSUPPLY Qty: 1 0RF Rx Instructions: As directed hydrocodone-acetaminophen 5-325 mg tablet 1 tab PO Q6H PRN (Reason: pain) 4 Days Qty: 15 0RF sotalol 160 mg Tablet 80 mg PO BID 0RF gabapentin 800 mg Tablet 800 mg PO TID 0RF fluticasone propionate [Flonase Allergy Relief] 50 mcg/actuation [place],Suspension 2 spray INTRANASAL DAILY PRN (Reason: Allergy Symptoms) 0RF fluticasone propion-salmeterol [Wixela Inhub] 100-50 mcg/dose Blister With Device 1 inh INHALATION BID 0RF albuterol sulfate [ProAir HFA] 90 mcg/actuation HFA aerosol inhaler 2 puff INHALATION Q4H PRN (Reason: Shortness Of Breath) 0RF lisinopril 40 mg tablet 20 mg PO QAM 0RF rosuvastatin 40 mg tablet 20 mg PO BEDTIME 0RF Xarelto 15 mg tablet 15 mg PO BEDTIME 0RF cranberry 2 cap PO DAILY 0RF tamsulosin 0.4 mg capsule 0.4 mg PO BEDTIME 0RF insulin aspart U-100 [Novolog Flexpen U-100 Insulin] 100 unit/mL (3 mL) insulin pen See Rx Instructions .ROUTE .COMPLEX Qty: 15 2RF Rx Instructions: Sliding scale medium dose prn furosemide 20 mg tablet 20 mg PO BID 0RF Changed Lantus Solostar U-100 Insulin 100 unit/mL (3 mL) insulin pen 10 unit SUBCUT BEDTIME PRN (Reason: if blood sugar is above 200) Qty: 0 0RF Discontinued digoxin 250 mcg (0.25 mg) tablet 250 mcg PO QAM 0RF metformin 1,000 mg tablet 1,000 mg PO BID 0RF Discharge Orders: Discharge Order (Routine); Ordered 12/10/21 Ordered By: Omari Lopez Referrals: Gisselle Glaser MD [Physician] - 4-7 days Aldo Smith DO [Physician] - 1 week Trisha Urena MD [Primary Care Provider] - Discharge Diet: Advance as tolerated Discharge Activity: Resume usual activity Patient Instructions: Opioid Safety Activity Restrictions/Additional Instructions: -Needs PTOT at senior living -monitor blood sugars with type 2 diabetes Discharge Attestations Time Spent in Discharge Care*: less than 30 min Status at Discharge: Cognitive status at discharge: cognitively intact, Behavioral status at discharge: cooperative, Quality Metrics Clinical Quality Measures [ No reported AMI, CVA or VTE this stay] Coding Level of Care Code Acute g FW DC note Diagnoses Spinal stenosis, lumbar region, with neurogenic claudication M48.062 DDD (degenerative disc disease), lumbar M51.36 Atrial fibrillation I48.0 Atrial fibrillation type: paroxysmal Chronic anticoagulation Z79.01 Diabetes mellitus, type II E11.42; Z79.4 Diabetes mellitus half-way insulin use: with termite renewal inspector use Diabetes mellitus complication status: with neurologic complications Diabetes mellitus complication detail: with polyneuropathy Intermittent self-catheterization of bladder Z78.9 Anemia D63.8 Anemia type: other cause Other causes of anemia: chronic disease, other Dizziness R42
[2021-12-10 11:17] LABS: Glucose Point of Care 290 mg/dL (70-110)
[2021-12-10 11:19] VITALS: BP 143/78; PULSE 63; RESP 18; TEMP 36.5; O2SAT 96
--- NOTE | 2021-12-10 12:31 | PC.NURSE ---
Called report to [facility]. Awaiting transportation.
--- NOTE | 2021-12-10 14:07 | PC.NURSE ---
SARA mcadams. Pt transferred to , tolerated well. Taken to waiting NH van. Narcotics signed for and sent home with daughter.
[2021-12-11 01:27] LABS: Beta-Hydroxybutyrate 1.18 mmol/L
[2021-12-12 00:03] LABS: Acetylcholine Receptor Block <15 (<15)
[2021-12-12 01:46] LABS: Acetylcholine Receptor Binding <0.30 nmol/L
[2021-12-12 16:48] LABS: Acetylcholine Recept Modulatin 21
== END 2021-12-10 14:08 | disposition skilled nursing facility (03) | DRG 312 ==
LOC: ER 14:41 → MEDSURG 16:13 → ICU 12-06 02:45 → MEDSURG 12-06 02:47
PROVIDERS: Internal Medicine; Admitting Provider Hospitalist; Emergency Provider Family Medicine; PCP Family Medicine; Visit Provider Family Medicine
DX: I95.1 Orthostatic hypotension (principal); E11.42 Type 2 diabetes mellitus with diabetic polyneuropathy; M48.062 Spinal stenosis, lumbar region with neurogenic claudication; M51.36 Other intervertebral disc degeneration, lumbar region; I48.0 Paroxysmal atrial fibrillation; Z79.01 Long term (current) use of anticoagulants; Z79.4 Long term (current) use of insulin; D63.8 Anemia in other chronic diseases classified elsewhere; R42 Dizziness and giddiness; Z79.891 Long term (current) use of opiate analgesic; N40.1 Benign prostatic hyperplasia with lower urinary tract symptoms; I95.9 Hypotension, unspecified; R29.6 Repeated falls; G70.00 Myasthenia gravis without (acute) exacerbation; R33.9 Retention of urine, unspecified; Z86.16 Personal history of COVID-19; E78.5 Hyperlipidemia, unspecified; R26.81 Unsteadiness on feet; Z96.0 Presence of urogenital implants; T38.3X5A Adverse effect of insulin and oral hypoglycemic [antidiabetic] drugs, initial encounter
CPT/HCPCS: 36415; 36416; 51702; 70450; 71045; 72131; 72170; 74018; 74176; 80048; 80053; 80162; 81001; 82009; 82010; 82550; 82607; 82962; 83516; 83519; 83605; 83735; 83880; 84100; 84145; 84443; 84484; 85025; 85049; 85384; 85610; 85730; 86140; 87040; 87086; 87426; 87493; 93005; 96361; 96365; 96372; 96375; 97110; 97116; 97162; 97167; 97530; 97535; 99285; G0378; J0696; J1815 ×2; J3475; J7030; J7040; J7050

== ENCOUNTER → 2021-12-18 14:16 | Outpatient (BNVA) | payer OTHER, SELFPAY | PROVIDERS: PCP Family Medicine; Visit Provider Internal Medicine | DX: E11.42 Type 2 diabetes mellitus with diabetic polyneuropathy (principal); E78.2 Mixed hyperlipidemia; Z79.4 Long term (current) use of insulin | CPT/HCPCS: 99204 ==

== ENCOUNTER → 2022-01-06 11:57 | Outpatient (BNVA) | payer OTHER, MEDICARE, SELFPAY | PROVIDERS: PCP Family Medicine; Visit Provider Specialist | DX: E11.40 Type 2 diabetes mellitus with diabetic neuropathy, unspecified (principal); Z79.4 Long term (current) use of insulin; M48.062 Spinal stenosis, lumbar region with neurogenic claudication; G30.9 Alzheimer's disease, unspecified; F02.80 Dementia in other diseases classified elsewhere, unspecified severity, without behavioral disturbance, psychotic disturbance, mood disturbance, and anxiety; I95.9 Hypotension, unspecified; N40.1 Benign prostatic hyperplasia with lower urinary tract symptoms; N39.41 Urge incontinence; N99.89 Other postprocedural complications and disorders of genitourinary system | CPT/HCPCS: 81003; 87077; 87086; 87184; 99214; 99215 ==

== ENCOUNTER → 2022-01-15 13:02 | Outpatient (BNVA) | payer OTHER, SELFPAY | PROVIDERS: PCP Family Medicine; Visit Provider Nurse Practitioner Family | DX: I95.9 Hypotension, unspecified (principal); I48.0 Paroxysmal atrial fibrillation; Z87.891 Personal history of nicotine dependence; Z79.01 Long term (current) use of anticoagulants | CPT/HCPCS: 99213; 99214 ==

== ENCOUNTER → 2022-01-21 14:53 | Outpatient (BNVA) | payer OTHER, SELFPAY | PROVIDERS: PCP Family Medicine; Visit Provider Internal Medicine | DX: E11.40 Type 2 diabetes mellitus with diabetic neuropathy, unspecified (principal); E11.42 Type 2 diabetes mellitus with diabetic polyneuropathy; E78.2 Mixed hyperlipidemia; Z79.4 Long term (current) use of insulin; Z87.891 Personal history of nicotine dependence | CPT/HCPCS: 99214 ==

== ENCOUNTER → 2022-01-22 09:57 | Outpatient (BNVA) | payer OTHER, SELFPAY | PROVIDERS: PCP Family Medicine; Visit Provider Nurse Practitioner Family | DX: N99.89 Other postprocedural complications and disorders of genitourinary system (principal); R33.8 Other retention of urine; R82.71 Bacteriuria; N39.41 Urge incontinence; N40.1 Benign prostatic hyperplasia with lower urinary tract symptoms | CPT/HCPCS: 81003; 87077; 87086; 87184 ==

== ENCOUNTER → 2022-01-30 15:00 | Outpatient (BNVA) | payer OTHER, SELFPAY | PROVIDERS: PCP Family Medicine; Visit Provider Physician Assistant | DX: M48.062 Spinal stenosis, lumbar region with neurogenic claudication (principal); M51.36 Other intervertebral disc degeneration, lumbar region | CPT/HCPCS: 99213; 99999 ==

== ENCOUNTER 2022-02-13 06:00 | Outpatient (RCR) | payer OTHER, SELFPAY | END 2022-03-04 23:59 | disposition home or self-care (01) | LOC: SPT 06:00 | PROVIDERS: PCP Family Medicine; Referring Provider Family Medicine; Visit Provider Family Medicine | DX: M25.512 Pain in left shoulder (principal) | CPT/HCPCS: 97110; 97161; 99212 ==

== ENCOUNTER → 2022-02-13 07:50 | Outpatient (BNVA) | payer OTHER, SELFPAY | PROVIDERS: PCP Family Medicine; Visit Provider Nurse Practitioner Family | DX: Z09 Encounter for follow-up examination after completed treatment for conditions other than malignant neoplasm (principal) | CPT/HCPCS: 99212 ==

== ENCOUNTER 2022-02-13 10:19 | Outpatient (RCR) | payer OTHER, SELFPAY | END 2022-03-04 23:59 | disposition home or self-care (01) | LOC: SPT 10:19 | PROVIDERS: PCP Family Medicine; Referring Provider Family Medicine; Visit Provider Family Medicine | DX: R26.9 Unspecified abnormalities of gait and mobility (principal) | CPT/HCPCS: 97110; 97161 ==

== ENCOUNTER 2022-03-05 06:00 | Outpatient (RCR) | payer OTHER, SELFPAY | END 2022-04-03 23:59 | disposition home or self-care (01) | LOC: SPT 06:00 | PROVIDERS: PCP Family Medicine; Referring Provider Family Medicine; Visit Provider Family Medicine | DX: R26.9 Unspecified abnormalities of gait and mobility (principal) | CPT/HCPCS: 97110 ==

== ENCOUNTER 2022-03-05 06:00 | Outpatient (RCR) | payer OTHER, SELFPAY | END 2022-04-03 23:59 | disposition home or self-care (01) | LOC: SPT 06:00 | PROVIDERS: PCP Family Medicine; Referring Provider Family Medicine; Visit Provider Family Medicine | DX: M25.512 Pain in left shoulder (principal) | CPT/HCPCS: 97110 ==

== ENCOUNTER → 2022-03-13 08:23 | Outpatient (BNVA) | payer OTHER, SELFPAY | PROVIDERS: PCP Family Medicine; Visit Provider Physician Assistant | DX: M48.062 Spinal stenosis, lumbar region with neurogenic claudication (principal) | CPT/HCPCS: 99213 ==

== ENCOUNTER → 2022-03-18 14:08 | Outpatient (BNVA) | payer OTHER, SELFPAY | PROVIDERS: PCP Family Medicine; Visit Provider Internal Medicine | DX: E11.42 Type 2 diabetes mellitus with diabetic polyneuropathy (principal); E78.2 Mixed hyperlipidemia; Z79.4 Long term (current) use of insulin | CPT/HCPCS: 99214 ==

== ENCOUNTER → 2022-04-01 10:02 | Outpatient (BNVA) | payer OTHER, SELFPAY | PROVIDERS: PCP Family Medicine; Visit Provider Urology | DX: N40.1 Benign prostatic hyperplasia with lower urinary tract symptoms (principal); N99.89 Other postprocedural complications and disorders of genitourinary system; R33.8 Other retention of urine; N39.41 Urge incontinence; R82.71 Bacteriuria | CPT/HCPCS: 51741; 51798; 81003; 87086; 99213 ==

== ENCOUNTER → 2022-04-03 08:38 | Outpatient (BNVA) | payer OTHER, SELFPAY | PROVIDERS: PCP Family Medicine; Visit Provider Anesthesiology Pain Medicine | DX: M48.062 Spinal stenosis, lumbar region with neurogenic claudication (principal); M51.16 Intervertebral disc disorders with radiculopathy, lumbar region; M47.816 Spondylosis without myelopathy or radiculopathy, lumbar region; M79.604 Pain in right leg; M79.605 Pain in left leg; Z79.891 Long term (current) use of opiate analgesic | CPT/HCPCS: 99204 ==

== ENCOUNTER 2022-04-04 06:00 | Outpatient (RCR) | payer OTHER, SELFPAY | END 2022-05-04 23:59 | disposition home or self-care (01) | LOC: SPT 06:00 | PROVIDERS: PCP Family Medicine; Referring Provider Family Medicine; Visit Provider Family Medicine | DX: R26.9 Unspecified abnormalities of gait and mobility (principal) | CPT/HCPCS: 97110 ==

== ENCOUNTER → 2022-04-23 13:51 | Outpatient (BNVA) | payer OTHER, SELFPAY | PROVIDERS: PCP Family Medicine; Visit Provider Anesthesiology Pain Medicine | DX: M54.16 Radiculopathy, lumbar region (principal); M48.062 Spinal stenosis, lumbar region with neurogenic claudication; Z79.891 Long term (current) use of opiate analgesic | CPT/HCPCS: 64483; 64484; J1100; J3490 ==

== ENCOUNTER 2022-05-05 06:00 | Outpatient (RCR) | payer OTHER, SELFPAY | END 2022-06-04 23:59 | disposition home or self-care (01) | LOC: SPT 06:00 | PROVIDERS: PCP Family Medicine; Referring Provider Family Medicine; Visit Provider Family Medicine | DX: G31.84 Mild cognitive impairment of uncertain or unknown etiology (principal); M51.16 Intervertebral disc disorders with radiculopathy, lumbar region; E11.40 Type 2 diabetes mellitus with diabetic neuropathy, unspecified; Z79.4 Long term (current) use of insulin | CPT/HCPCS: 97110; 99213; 99214 ==

== ENCOUNTER → 2022-05-06 10:31 | Outpatient (BNVA) | payer OTHER, SELFPAY | PROVIDERS: PCP Family Medicine; Visit Provider Anesthesiology Pain Medicine | DX: M79.604 Pain in right leg (principal); M79.605 Pain in left leg; Z79.891 Long term (current) use of opiate analgesic; M48.062 Spinal stenosis, lumbar region with neurogenic claudication; M51.16 Intervertebral disc disorders with radiculopathy, lumbar region; M47.816 Spondylosis without myelopathy or radiculopathy, lumbar region; E11.40 Type 2 diabetes mellitus with diabetic neuropathy, unspecified; E11.42 Type 2 diabetes mellitus with diabetic polyneuropathy; E78.2 Mixed hyperlipidemia; Z79.4 Long term (current) use of insulin; Z79.84 Long term (current) use of oral hypoglycemic drugs; Z87.440 Personal history of urinary (tract) infections | CPT/HCPCS: 99214 ==

== ENCOUNTER 2022-06-05 06:00 | Outpatient (RCR) | payer OTHER, SELFPAY | END 2022-07-01 23:59 | disposition home or self-care (01) | LOC: SPT 06:00 | PROVIDERS: PCP Family Medicine; Visit Provider Family Medicine | DX: R26.9 Unspecified abnormalities of gait and mobility (principal) | CPT/HCPCS: 97110; 97112; 97116; 97530 ==

== ENCOUNTER → 2022-06-10 11:05 | Outpatient (BNVA) | payer OTHER, SELFPAY | PROVIDERS: PCP Family Medicine; Visit Provider Anesthesiology Pain Medicine | DX: M48.062 Spinal stenosis, lumbar region with neurogenic claudication (principal); M51.16 Intervertebral disc disorders with radiculopathy, lumbar region; M47.816 Spondylosis without myelopathy or radiculopathy, lumbar region; M79.604 Pain in right leg; M79.605 Pain in left leg | CPT/HCPCS: 99214 ==

== ENCOUNTER → 2022-06-30 12:54 | Outpatient (BNVA) | payer OTHER, SELFPAY | PROVIDERS: PCP Family Medicine; Visit Provider Anesthesiology Pain Medicine | DX: M47.816 Spondylosis without myelopathy or radiculopathy, lumbar region (principal); M48.062 Spinal stenosis, lumbar region with neurogenic claudication | CPT/HCPCS: 64493; 64494; 64495; J3490 ==

== ENCOUNTER → 2022-07-14 10:33 | Outpatient (BNVA) | payer OTHER, SELFPAY | PROVIDERS: PCP Family Medicine; Visit Provider Anesthesiology Pain Medicine | DX: M48.062 Spinal stenosis, lumbar region with neurogenic claudication (principal); M51.16 Intervertebral disc disorders with radiculopathy, lumbar region; M47.816 Spondylosis without myelopathy or radiculopathy, lumbar region; M16.0 Bilateral primary osteoarthritis of hip; Z87.891 Personal history of nicotine dependence; E11.40 Type 2 diabetes mellitus with diabetic neuropathy, unspecified; E11.42 Type 2 diabetes mellitus with diabetic polyneuropathy; E78.2 Mixed hyperlipidemia; Z79.4 Long term (current) use of insulin | CPT/HCPCS: 99214 ==

== ENCOUNTER → 2022-07-23 14:10 | Outpatient (BNVA) | payer OTHER, SELFPAY | PROVIDERS: PCP Family Medicine; Visit Provider Internal Medicine | DX: I48.0 Paroxysmal atrial fibrillation (principal); Z79.01 Long term (current) use of anticoagulants; I10 Essential (primary) hypertension; Z87.891 Personal history of nicotine dependence | CPT/HCPCS: 99213; 99214 ==

== ENCOUNTER 2022-07-27 15:38 | Emergency (ER) | payer OTHER, SELFPAY ==
[2022-07-27] VITALS (14 sets, daily range): BP systolic 169–191; BP diastolic 79–99; PULSE 67–75; RESP 18–20; TEMP 36.7; O2SAT 93–95; BMI 33.4
--- NOTE | 2022-07-27 18:24 | PC.NURSE ---
pt c/o productive cough with green phelgm, and associated sore throat that started today. pt reports today his cough started to have a blood tinge to it. Pt denies recent illnesses or fevers. oral mucosa pink and moist. no swelling or excudate visualized. pt able to swallow own secretions.
--- NOTE | 2022-07-27 18:30 | XRR_ITS ---
PROCEDURE INFORMATION: Exam: XR Chest Exam date and time: 07/27/2022 6:42 PM Age: 72 years old Clinical indication: Cough and shortness of breath TECHNIQUE: Imaging protocol: Radiologic exam of the chest. Views: 1 view. COMPARISON: CR XR chest 1V portable [id number] 12/04/2021 11:18 AM FINDINGS: Lungs: Unremarkable. No consolidation. Pleural spaces: Unremarkable. No pleural effusion. No pneumothorax. Heart/Mediastinum: Unremarkable. No cardiomegaly. Bones/joints: Unremarkable. XR/XR chest 1V portable [id number] IMPRESSION: No acute findings.
--- NOTE | 2022-07-27 18:30 | ED_ITS ---
HPI - SOB/Dyspnea General: Chief Complaint: Shortness of Breath/Dyspnea Stated Complaint: SOB, sore throat Time Seen by Provider: 07/27/22 18:11 Source: patient History of Present Illness: HPI Narrative: 72-year-old male here with 24 hours of sore throat, congestion, and cough. He is mildly short of breath. Unknown if fever. He had some chills last night. He states that pain in his throat makes it hard to swallow. MD elicited complaint: shortness of breath and cough Pertinent past history: other Exacerbating factors: coughing Relieving factors: nothing Associated symptoms: Reports chest congestion and cough; Deny abdominal pain, chest pain, dizziness, fever(s), hemoptysis, nausea or vomiting Treatment prior to arrival: none Review of Systems Const: Denies: fever(s) ENMT: Reports: throat pain, odynophagia and hoarseness Card: Denies: chest pain Resp: Reports: chest congestion; Denies: hemoptysis GI: Denies: abdominal pain, nausea or vomiting Neuro: Denies: dizziness PFSH ED 2 PFSH: Medical History Anemia Atrial fibrillation BPH loc w urin obs/LUTS Cervicalgia of ffvsqizp-mwoaahv-ekhde region Chronic anticoagulation Xarelto secondary to atrial fibrillation Diabetes mellitus, type II Diabetic foot ulcer 08/2021 - treated with I&D, antibiotics and wound care clinic management 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 mellitus H/O prostate cancer History of cardiovascular stress test 05/2021 normal EKG response, perfusion study without findings of ischemia History of Doppler ultrasound 08/2021 venous no DVT BLE 08/2021 arterial patent vessels, left posterior tibial may be less than 60% stenosis, left dorsalis pedis not visualized History of echocardiogram 05/2021 EF 65% History of electromyography 01/23 Interpretation: The study provides electrodiagnostic evidence for an axonal sensorimotor polyneuropathy based on small or absent CMAPs and SNAPs with denervation seen distally on EMG. The study is limited for evaluation of lumbar radiculopathy related to the patient's anticoagulated state. History of sleep study 02/22 limited sleep, no apnea noted but did have nocturnal hypoxemia, recommended to use nocturnal oxygen HTN (hypertension) previously on treatment for high blood pressure Intermittent self-catheterization of bladder due to urinary retention Left ureteral calculus Lumbar stenosis L2/3, L3/4, L4/L5, with radiculopathy right lower extremity Lumbar stenosis with neurogenic claudication Obstructive pyelonephritis 09/2021 required ureteral stent placement Obstructive sleep apnea Refuses CPAP SARS-CoV-2 positive positive test 11/17/2021 symptoms weakness, hypoglycemia, altered mental status and low grade fever Surgical History H/O esophagogastroduodenoscopy (10/30/21) 10/2021 pedunculated polyps removed from first portion of duodenum, otherwise normal History of back surgery History of colonoscopy (10/30/21) 11/2021 diverticulosis of sigmoid colon and internal hemorrhoids, sessile polyps removed History of laminectomy 03/25 bilateral with partial facetectomies at L2-3, L3-4, L4-[address] Smith History of pilonidal cyst Other postprocedural status history of radiofrequency ablation for back pain x 2 S/P appendectomy S/P tonsillectomy S/P ureteral stent placement (09/2021) subsequent removal Status post excisional debridement 08/2021 left foot Status post laser lithotripsy of ureteral calculus (11/06/21) Family History Grandmother Heart disease Hypertension Grandfather Hypertension MATERNAL Diabetes Mother No problems noted. 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 History of recent travel: No Financial difficulty paying for basics: Very Hard Physical Exam Const: COMMON NORMALS: no acute distress GENERAL APPEARANCE: cooperative; not in distress HENMT: COMMON NORMALS: normocephalic, atraumatic and Normal external nose present HEAD & SCALP: normocephalic and atraumatic FACE & SINUS: normal facial exam NOSE: Normal external nose present and Normal nares present MOUTH: Normal oral and palatal mucosa present; no muffled voice THROAT: uvula midline and posterior oropharynx abnormal erythema (Minimal); no cobblstoning, no edema and no exudates; no peritonsillar mass Eye: COMMON NORMALS: Equal, round and reactive pupils present and EOMs intact bilaterally PUPIL: Yes Equal, round and reactive pupils present Neck/C-Spine: COMMON NORMALS: full ROM GENERAL: Yes trachea midline Chest: CHEST: Yes Symmetrical chest wall rise Resp: COMMON NORMALS: normal respiratory effort, No use of accessory muscles and clear to auscultation bilaterally AUSCULTATION: clear to auscultation bilaterally Cardio: COMMON NORMALS: regular rate and regular rhythm RATE: regular rate RHYTHM: regular rhythm GI: COMMON NORMALS: Normal to inspection, nondistended, normoactive bowel sounds present Course Vital Signs: Vital signs: Vital Signs Temperature 98.1 F 07/27/22 16:27 Pulse Rate 70 07/27/22 20:30 Respiratory Rate 18 07/27/22 20:30 Blood Pressure 191/99 07/27/22 20:30 Pulse Oximetry 95 07/27/22 20:30 Oxygen Delivery Me thod 07/27/22 16:27 MDM - SOB/Dyspnea Medical Decision Making Swabs are negative. Patient is improved after GI cocktail. We will treat him symptomatically, will also cover with antibiotics given his advanced age Lab Data Labs/Radiology: Radiology Impressions Chest X-Ray 07/27/22 18:30 IMPRESSION: No acute findings. Laboratory Results Influenza Type A Ag negative (Negative) 07/27/22 19:22 Influenza Type B Ag negative (Negative) 07/27/22 19:22 SARS-CoV-2 Ag (Rapid) negative (Negative) 07/27/22 19:22 Group A Strep Rapid Negative (Negative) 07/27/22 19:22 Discharge Plan Discharge Patient Disposition: Home Clinical Impression: Pharyngitis Condition: Stable Prescriptions: New cephalexin 500 mg capsule 500 mg PO Q6H 7 Days Qty: 28 0RF hydrocodone-guaifenesin 2.5-200 mg/5 mL solution 10 ml PO Q6H Qty: 118 0RF No Action omega-3 fatty acids [Fish Oil Concentrate] 1,000 mg capsule 1,000 mg PO BID cholecalciferol (vitamin D3) [Vitamin D3] 25 mcg (1,000 unit) capsule See Rx Instructions .ROUTE .COMPLEX Rx Instructions: 2000 units po qam and 1000 units at bedtime (DME) Dexcom G6 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 (DME) water aerobics See Rx Instructions .Route .MEDSUPPLY Qty: 1 0RF Rx Instructions: As directed bisacodyl 10 mg suppository 10 mg LA DAILY PRN furosemide 20 mg tablet 10 mg PO BID pyridostigmine bromide 30 mg tablet 30 mg PO TID dexamethasone sodium phos (PF) 10 mg/mL solution 8 mg Infiltration ONCE Qty: 0.8 0RF bupivacaine (PF) 0.25 % (2.5 mg/mL) solution 1 ml Infiltration ONCE Qty: 1 0RF tramadol 50 mg tablet 50 mg PO BID PRN (Reason: pain) Qty: 45 0RF galantamine 4 mg tablet 4 mg PO BID Qty: 90 3RF Rx Instructions: administer with AM and PM meals metformin 1,000 mg tablet extended release 24hr 1,000 mg PO BID (DME) Dexcom G6 Sensor Device See Rx Instructions .Route Qty: 3 3RF Rx Instructions: Change every 10 days. (DME) Dexcom G6 Transmitter Device See Rx Instructions .Route Qty: 1 3RF Rx Instructions: Change every 90 days. lisinopril 40 mg tablet 20 mg PO QAM Qty: 90 3RF insulin aspart U-100 [Novolog Flexpen U-100 Insulin] 100 unit/mL (3 mL) insulin pen 35 unit .ROUTE TID Qty: 30 3RF Rx Instructions: 35 units three times daily; Lantus Solostar U-100 Insulin 100 unit/mL (3 mL) insulin pen 85 unit SUBCUT BEDTIME Qty: 75 3RF sotalol 160 mg Tablet 80 mg PO BID gabapentin 800 mg Tablet 800 mg PO TID fluticasone propionate [Flonase Allergy Relief] 50 mcg/actuation [place],Suspension 2 spray INTRANASAL DAILY PRN (Reason: Allergy Symptoms) fluticasone propion-salmeterol [Wixela Inhub] 100-50 mcg/dose Blister With Device 1 inh INHALATION BID albuterol sulfate [ProAir HFA] 90 mcg/actuation HFA aerosol inhaler 2 puff INHALATION Q4H PRN (Reason: Shortness Of Breath) rosuvastatin 40 mg tablet 20 mg PO BEDTIME Xarelto 15 mg tablet 15 mg PO BEDTIME tamsulosin 0.4 mg capsule 0.4 mg PO BEDTIME Discharge Orders: Discharge ED (Routine); Ordered 07/27/22 Ordered By: Joaquim Beard Referrals: Trisha Urena MD [Primary Care Provider] - 1-3 days Patient Instructions: Pharyngitis (ED), Opioid Safety, Pain Management Activity Restrictions/Additional Instructions: Return for fever despite 3-4 doses of antibiotics, worsening pain despite treatment, worsening shortness of breath, other concerning symptoms Coding Level of Care Code ED Hourly Sales Staff for Chg Fwd Exam Comprehensive
[2022-07-27] MEDS: lidocaine 2% viscous 15 ML, aluminum-mag hydrox-simethicon 30 ML, sucralfate oral liq 1 GM PO (18:57)
--- NOTE | 2022-07-27 19:20 | PC.NURSE ---
report given to SHELLY Pope to assume care
[2022-07-27 19:42] LABS: Rapid Strep A Test Negative (Negative)
[2022-07-27 19:46] LABS: Influenza A by IFA negative (Negative); Influenza B by IFA negative (Negative)
[2022-07-27 19:47] LABS: SARS Covid-2 Antigen negative (Negative)
[2022-07-27] MEDS: cephALEXin 500 mg Capsule PO (20:04)
[2022-07-27] MEDS: dexamethasone 4 mg Tablet 8 MG PO (20:04)
[2022-07-27] MEDS: oxyCODONE-APAP 5-325 mg Tablet 1 TAB PO (20:05)
== END 2022-07-27 20:31 | disposition home or self-care (01) ==
PROVIDERS: Emergency Provider Emergency Medicine; PCP Family Medicine
DX: J02.9 Acute pharyngitis, unspecified (principal); Z79.84 Long term (current) use of oral hypoglycemic drugs; Z79.4 Long term (current) use of insulin; Z20.822 Contact with and (suspected) exposure to COVID-19; Z87.891 Personal history of nicotine dependence; E11.40 Type 2 diabetes mellitus with diabetic neuropathy, unspecified; Z85.46 Personal history of malignant neoplasm of prostate; I10 Essential (primary) hypertension
CPT/HCPCS: 71045; 87081; 87426; 87804; 87880; 99284; J8540

== ENCOUNTER → 2022-08-04 11:47 | Outpatient (BNVA) | payer OTHER, SELFPAY | PROVIDERS: PCP Family Medicine; Visit Provider Anesthesiology Pain Medicine | DX: M47.816 Spondylosis without myelopathy or radiculopathy, lumbar region (principal); M48.062 Spinal stenosis, lumbar region with neurogenic claudication; Z87.891 Personal history of nicotine dependence | CPT/HCPCS: 64635; 64636; J1030 ==

== ENCOUNTER 2022-08-12 06:00 | Outpatient (RCR) | payer OTHER, SELFPAY | END 2022-09-03 23:59 | disposition home or self-care (01) | LOC: MPT 06:00 | PROVIDERS: PCP Family Medicine; Visit Provider Family Medicine | DX: M54.50 Low back pain, unspecified (principal) | CPT/HCPCS: 97110; 97162 ==

== ENCOUNTER → 2022-08-21 09:54 | Outpatient (BNVA) | payer OTHER, SELFPAY | PROVIDERS: PCP Family Medicine; Visit Provider Anesthesiology Pain Medicine | DX: M48.062 Spinal stenosis, lumbar region with neurogenic claudication (principal); M51.16 Intervertebral disc disorders with radiculopathy, lumbar region; M47.816 Spondylosis without myelopathy or radiculopathy, lumbar region; M16.0 Bilateral primary osteoarthritis of hip; Z87.891 Personal history of nicotine dependence | CPT/HCPCS: 99214 ==

== ENCOUNTER 2022-09-04 06:00 | Outpatient (RCR) | payer OTHER, SELFPAY | END 2022-10-04 23:59 | disposition home or self-care (01) | LOC: MPT 06:00 | PROVIDERS: PCP Family Medicine; Visit Provider Family Medicine | DX: M54.50 Low back pain, unspecified (principal) | CPT/HCPCS: 97110; 97113 ==

== ENCOUNTER → 2022-09-29 11:33 | Outpatient (BNVA) | payer MEDICARE, SELFPAY | PROVIDERS: PCP Family Medicine; Visit Provider Family Medicine Adult Medicine | DX: N39.0 Urinary tract infection, site not specified (principal); N30.01 Acute cystitis with hematuria | CPT/HCPCS: 81000 ==

== ENCOUNTER 2022-10-05 06:00 | Outpatient (RCR) | payer OTHER, SELFPAY | END 2022-11-04 23:59 | disposition home or self-care (01) | LOC: MPT 06:00 | PROVIDERS: PCP Family Medicine; Visit Provider Family Medicine | DX: M54.50 Low back pain, unspecified (principal) | CPT/HCPCS: 97110; 97113 ==

== ENCOUNTER 2022-11-05 06:00 | Outpatient (RCR) | payer OTHER, SELFPAY | END 2022-11-21 23:59 | disposition home or self-care (01) | LOC: MPT 06:00 | PROVIDERS: PCP Family Medicine; Visit Provider Family Medicine | DX: M54.50 Low back pain, unspecified (principal) | CPT/HCPCS: 97110 ==

== ENCOUNTER → 2022-11-18 13:58 | Outpatient (BNVA) | payer OTHER, SELFPAY | PROVIDERS: PCP Family Medicine; Visit Provider Emergency Medicine | DX: N39.0 Urinary tract infection, site not specified (principal) | CPT/HCPCS: 81000; 87086 ==

== ENCOUNTER → 2022-11-20 14:13 | Outpatient (BNVA) | payer OTHER, SELFPAY | PROVIDERS: PCP Family Medicine; Visit Provider Anesthesiology Pain Medicine | DX: G89.29 Other chronic pain (principal); M16.11 Unilateral primary osteoarthritis, right hip | CPT/HCPCS: 20610; 77002; J1030; J3490 ==

== ENCOUNTER 2022-11-25 11:09 | Emergency (ER) | payer OTHER, SELFPAY ==
[2022-11-25 11:11] VITALS: BP 156/75; PULSE 63; RESP 18; TEMP 37.1; O2SAT 97; BMI 34.8
--- NOTE | 2022-11-25 13:30 | CT_ITS ---
WS: [id number] CT ABDOMEN PELVIS TECHNIQUE: Contrast-enhanced CT of the abdomen and pelvis with coronal and sagittal reformatted image s. CLINICAL INFORMATION: Hematuria COMPARISON: CT December 06, 2021 DLP: 902.[address] scans at [facility] use at least one of these dose optimization techniques: automated e xposure control; mA and/or kV adjustment per patient size (includes targeted exams where dose is matc hed to clinical indication); or iterative reconstruction. FINDINGS: Lung bases are well aerated. Hepatomegaly. Diffuse fatty infiltration liver. Small hepatic cyst is un changed. Enlarged RIGHT hepatic lobe. Portal vein and splenic vein are patent. Normal spleen. Normal GE junction. Normal gallbladder. Lung bases are well aerated. Adrenal glands are normal. Normal renal parenchymal enhancement. No hydronephrosis. Normal pancreatic parenchymal enhancement. Normal calibe r abdominal aorta. Aortic calcification. Celiac and SMA are patent. Adrenal glands are normal. No obstructing renal or ureteral calculi. No hydronephrosis in either kidn ey. Villanueva catheter with air-fluid level in the bladder. Enlarged prostate measuring 4.5 cm. Diffuse b ladder wall thickening with enhancement suspicious for cystitis. Sigmoid diverticulosis. No evidence of acute diverticulitis. Advanced spondylitic changes lumbar spine. CT/CT abdomen pelvis w con* [id number] IMPRESSION: 1. Sigmoid diverticulosis. No evidence of acute diverticulitis. 2. Diffuse bladder wall thickening with enhancement suspicious for cystitis. F oley catheter in place. Recommend correlation for UTI. 3. No hydronephrosis in either kidney. Normal renal parenchymal enhancement. N o obstructing renal or ureteral calculi. 4. Hepatomegaly with diffuse fatty infiltration liver. 5. Enlarged prostate measuring 4.5 cm. Correlation PSA.
[2022-11-25 13:34] LABS: Basophils # 0.1 10^3/uL (0.0-0.1); Basophils % 0.5 %; Eosinophils # 0.6 10^3/uL (0.0-0.8); Eosinophils % 4.9 %; Hematocrit 40.5 % (42.0-52.0); Hemoglobin 13.7 g/dL (11.7-16.6); Lymphocytes % 23.7 %; Mean Corpuscular HGB Conc 33.8 g/dL (30.0-36.0); Mean Corpuscular Hemoglobin 31.6 pg (28.0-34.0); Mean Corpuscular Volume 93.5 fl (80-94); Mean Platelet Volume 10.8 fL (7.4-10.4); Monocytes # 0.9 10^3/uL (0.2-0.9); Monocytes % 6.8 %; Neutrophils # 8.12 10^3/uL (1.8-7.7); Neutrophils % 63.6 %; Nucleated Red Blood Cells % 0 %; Platelet Count 238 10^3/cmm (130-400); Red Blood Count 4.33 10^6/uL (4.1-5.3); Red Cell Distribution Width 13.5 % (12.1-15.1); White Blood Count 12.8 10^3/uL (4.0-10.0)
[2022-11-25 13:51] VITALS: BP 148/76; PULSE 65; RESP 16; O2SAT 95
--- NOTE | 2022-11-25 13:54 | ED_ITS ---
HPI - Male Genitourinary General: Chief complaint: Urogenital-Male Stated complaint: urinating blood Time Seen by Provider: 11/25/22 13:12 History of Present Illness: This 72-year-old male with a history of A-fib (on Xarelto) presents to the ER with blood in urine. He had gone to see his primary care provider at the [facility] who subsequently sent him to the ER for evaluation. Patient notes that he has been experiencing blood in urine for the last 6 days. However in the last 2 days, blood has been present with every urination. He has no fever, nausea or vomiting. He appears clinically stable. He is on Xarelto for A-fib and has never bled from any orifice before. Associated symptoms: Reports hematuria Review of Systems General: Reports: 10 or more systems reviewed and unremarkable except in HPI and below : Reports: hematuria PFSH ED PFSH: Medical History Anemia Atrial fibrillation BPH loc w urin obs/LUTS Cervicalgia of scmpjgnm-lukonqj-lsdwj region Chronic anticoagulation Xarelto secondary to atrial fibrillation Diabetes mellitus, type II Diabetic foot ulcer 08/2021 - treated with I&D, antibiotics and wound care clinic management 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 mellitus H/O prostate cancer Hematuria due to acute cystitis History of cardiovascular stress test 05/2021 normal EKG response, perfusion study without findings of ischemia History of Doppler ultrasound 08/2021 venous no DVT BLE 08/2021 arterial patent vessels, left posterior tibial may be less than 60% stenosis, left dorsalis pedis not visualized History of echocardiogram 05/2021 EF 65% History of electromyography 01/23 Interpretation: The study provides electrodiagnostic evidence for an axonal sensorimotor polyneuropathy based on small or absent CMAPs and SNAPs with denervation seen distally on EMG. The study is limited for evaluation of lumbar radiculopathy related to the patient's anticoagulated state. History of sleep study 02/22 limited sleep, no apnea noted but did have nocturnal hypoxemia, recommended to use nocturnal oxygen HTN (hypertension) previously on treatment for high blood pressure Intermittent self-catheterization of bladder due to urinary retention Left ureteral calculus Lumbar stenosis L2/3, L3/4, L4/L5, with radiculopathy right lower extremity Lumbar stenosis with neurogenic claudication Obstructive pyelonephritis 09/2021 required ureteral stent placement Obstructive sleep apnea Refuses CPAP SARS-CoV-2 positive positive test 11/17/2021 symptoms weakness, hypoglycemia, altered mental status and low grade fever Surgical History H/O esophagogastroduodenoscopy (10/30/21) 10/2021 pedunculated polyps removed from first portion of duodenum, otherwise normal History of back surgery History of colonoscopy (10/30/21) 11/2021 diverticulosis of sigmoid colon and internal hemorrhoids, sessile polyps removed History of laminectomy 03/25 bilateral with partial facetectomies at L2-3, L3-4, L4-[address] Smith History of pilonidal cyst Other postprocedural status history of radiofrequency ablation for back pain x 2 S/P appendectomy S/P tonsillectomy S/P ureteral stent placement (09/2021) subsequent removal Status post excisional debridement 08/2021 left foot Status post laser lithotripsy of ureteral calculus (11/06/21) Family History Grandmother Heart disease Hypertension Grandfather Hypertension MATERNAL Diabetes Mother No problems noted. 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 Financial difficulty paying for basics: Very Hard Physical Exam Const: COMMON NORMALS: no acute distress, patient oriented x3, no limitations and alert HENMT: COMMON NORMALS: normocephalic HEAD & SCALP: normocephalic Neck/C-Spine: COMMON NORMALS: full ROM and supple Chest: COMMONS NORMALS: normal inspection of the chest Resp: COMMON NORMALS: normal respiratory effort, No retractions, No use of accessory muscles and clear to auscultation bilaterally AUSCULTATION: clear to auscultation bilaterally Cardio: COMMON NORMALS: regular rate, regular rhythm and No murmurs present (Cardio) RATE: regular rate RHYTHM: regular rhythm GI: COMMON NORMALS: Normal to inspection, nondistended, normoactive bowel sounds present OTHER: suprapubic tenderness Extremity: GENERAL: Yes normal exam except as noted Neuro: COMMON NORMALS: patient oriented x3 and no focal motor deficits SENSORIUM/ORIENTATION: Yes alert Course Vital Signs: Vital signs: Vital Signs Temperature 98.7 F 11/25/22 11:11 Pulse Rate 71 11/25/22 17:47 Respiratory Rate 14 11/25/22 17:47 Blood Pressure 148/76 11/25/22 13:51 Pulse Oximetry 93 11/25/22 17:47 Oxygen Delivery Me thod 11/25/22 17:47 MDM - Male Medical Decision Making Medical decision making: Patient presents to the ER with hematuria that has been persistent for the last 2 days. He has been having it off and on for the last 6 days. Villanueva catheter was inserted and after initially evacuating bloody urine, urine cleared up. Hemoglobin is normal (13.7) and his vital signs are stable. Patient is in no acute distress. Case was discussed with Dr. Paul who had initially wanted a three-way catheter and bladder irrigation. However since the urine cleared, he recomm ended that patient be discharged home with an indwelling Villanueva catheter and a leg bag. He will follow-up with patient in the clinic. In the meantime patient should stop taking his Xarelto for the next 3 to 4 days or until the bleeding completely stops. Order entered for case management to schedule a urology follow-up for patient. This was explained to patient who verbalized understanding and agrees with the plan. Reasons to return were discussed. Lab Data 11/25/22 13:23 11/25/22 13:23 Radiology Impressions Abdomen/Pelvis CT 11/25/22 13:30 IMPRESSION: 1. Sigmoid diverticulosis. No evidence of acute diverticulitis. 2. Diffuse bladder wall thickening with enhancement suspicious for cystitis. Villanueva catheter in place. Recommend correlation for UTI. 3. No hydronephrosis in either kidney. Normal renal parenchymal enhancement. No obstructing renal or ureteral calculi. 4. Hepatomegaly with diffuse fatty infiltration liver. 5. Enlarged prostate measuring 4.5 cm. Correlation PSA. Laboratory Results WBC 12.8 10^3/uL (4.0-10.0) H 11/25/22 13:23 RBC 4.33 10^6/uL (4.1-5.3) 11/25/22 13:23 Hgb 13.7 g/dL (11.7-16.6) 11/25/22 13:23 Hct 40.5 % (42.0-52.0) L 11/25/22 13:23 MCV 93.5 fl (80-94) 11/25/22 13:23 MCH 31.6 pg (28.0-34.0) 11/25/22 13:23 MCHC 33.8 g/dL (30.0-36.0) 11/25/22 13:23 RDW 13.5 % (12.1-15.1) 11/25/22 13:23 Plt Count 238 10^3/cmm (130-400) 11/25/22 13:23 MPV 10.8 fL (7.4-10.4) H 11/25/22 13:23 Neut % (Auto) 63.6 % 11/25/22 13:23 Lymph % (Auto) 23.7 % 11/25/22 13:23 [place] % (Auto) 6.8 % 11/25/22 13:23 Eos % (Auto) 4.9 % 11/25/22 13:23 Baso % (Auto) 0.5 % 11/25/22 13:23 Neut # (Auto) 8.12 10^3/uL (1.8-7.7) H 11/25/22 13:23 Lymph # (Auto) 3.0 10^3/uL (0.8-4.8) 11/25/22 13:23 [place] # (Auto) 0.9 10^3/uL (0.2-0.9) 11/25/22 13:23 Eos # (Auto) 0.6 10^3/uL (0.0-0.8) 11/25/22 13:23 Baso # (Auto) 0.1 10^3/uL (0.0-0.1) 11/25/22:23 Nucleated RBC % (auto) 0 % 11/25/22 13:23 Nucleated RBCs # 0.0 /100WBC 11/25/22 13:23 Sodium 134 mmol/L (136-145) L 11/25/22 13:23 Potassium 4.8 mmol/L (3.5-5.1) 11/25/22 13:23 Chloride 98 mmol/L (98-107) 11/25/22 13:23 Carbon Dioxide 25 mmol/L (22-29) 11/25/22 13:23 Anion Gap 15.8 (5-19) 11/25/22 13:23 BUN 32 mg/dL (8-23) H 11/25/22 13:23 Creatinine 1.5 mg/dL (0.7-1.2) H 11/25/22 13:23 GFR Calculation Not Reportable 11/25/22 13:23 Glucose 249 mg/dL (65-115) H 11/25/22 13:23 Calculated Osmolality 293 mOsm/kg (285-295) 11/25/22 13:23 Calcium 9.5 mg/dL (8.5-10.5) 11/25/22 13:23 Total Bilirubin 0.2 mg/dL (0.15-1.2) 11/25/22 13:23 AST 19 U/L (0-40) 11/25/22 13:23 ALT 17 U/L (0-41) 11/25/22 13:23 Alkaline Phosphatase 68 U/L (40-130) 11/25/22 13:23 Total Protein 7.0 g/dL (6.6-8.7) 11/25/22 13:23 Albumin 3.9 g/dL (3.5-5.2) 11/25/22 13:23 Globulin 3.1 g/dL (1.3-4.6) 11/25/22 13:23 Urine Color Red (Yellow) 11/25/22 13:12 Urine Appearance Turbid (CLEAR) A 11/25/22 13:12 Urine pH 5 (5-7) 11/25/22 13:12 Ur Specific [place] 1.015 (1.005-1.030) 11/25/22 13:12 Urine Protein 3+ (Negative) H 11/25/22 13:12 Urine Glucose (UA) Trace (Normal) H 11/25/22 13:12 Urine Ketones 1+ (Negative) H 11/25/22 13:12 Urine Blood 3+ (Negative) H 11/25/22 13:12 Urine Nitrate Positive (Negative) H 11/25/22 13:12 Urine Bilirubin 1+ (Negative) H 11/25/22 13:12 Urine Urobilinogen 1 mg/dL (Negative) H 11/25/22 13:12 Ur Leukocyte Esterase 2+ (Negative) H 11/25/22 13:12 Urine RBC Too numerous to cnt /hpf (0-2) H 11/25/22 13:12 Urine WBC >100 /hpf (0-5) H 11/25/22 13:12 Ur Squamous Epith Cells 0-4 /hpf (0-5) H 11/25/22 13:12 Amorphous Sediment Not Reportable 11/25/22 13:12 Urine Bacteria Trace /hpf (NONE) 11/25/22 13:12 Discharge Plan Discharge Patient Disposition: Home Clinical Impression: Hematuria, Chronic anticoagulation, Atrial fibrillation Condition: Stable Prescriptions: No Action omega-3 fatty acids [Fish Oil Concentrate] 1,000 mg capsule 1,000 mg PO BID (DME) Dexcom G6 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 (DME) water aerobics See Rx Instructions .Route .MEDSUPPLY Qty: 1 0RF Rx Instructions: As directed bisacodyl 10 mg suppository 10 mg [place] DAILY PRN (Reason: Constipation) furosemide 20 mg tablet 20 mg PO BID sulfamethoxazole-trimethoprim [Bactrim DS] 800-160 mg tablet 1 tab PO BID 7 Days Qty: 14 0RF (DME) Dexcom G6 Transmitter Device See Rx Instructions .Route Qty: 1 3RF Rx Instructions: Change every 90 days. insulin aspart U-100 [Novolog FlexPen U-100 Insulin] 100 unit/mL (3 mL) insulin pen 35 unit .ROUTE TID Qty: 30 3RF Rx Instructions: 35 units three times daily; Lantus Solostar U-100 Insulin 100 unit/mL (3 mL) insulin pen 85 unit SUBCUT BEDTIME Qty: 75 3RF (DME) Dexcom G6 Sensor Device See Rx Instructions .Route Qty: 3 3RF Rx Instructions: Change every 10 days. galantamine 4 mg tablet 4 mg PO BID Qty: 90 3RF Rx Instructions: administer with AM and PM meals sotalol 160 mg Tablet 80 mg PO BID gabapentin 800 mg Tablet 800 mg PO TID fluticasone propionate [Flonase Allergy Relief] 50 mcg/actuation [place],Suspension 2 spray INTRANASAL DAILY PRN (Reason: Allergy Symptoms) fluticasone propion-salmeterol [Wixela Inhub] 100-50 mcg/dose Blister With Device 1 inh INHALATION BID albuterol sulfate [ProAir HFA] 90 mcg/actuation HFA aerosol inhaler 2 puff INHALATION Q4H PRN (Reason: Shortness Of Breath) rosuvastatin 40 mg tablet 20 mg PO BEDTIME Xarelto 15 mg tablet 15 mg PO BEDTIME tamsulosin 0.4 mg capsule 0.4 mg PO BEDTIME digoxin 250 mcg (0.25 mg) Tablet 250 mcg PO DAILY methocarbamol 750 mg tablet 750 mg PO QID PRN (Reason: Muscle Spasm) lisinopril 5 mg Tablet 2.5 mg PO DAILY metformin 500 mg tablet extended release 24 hr 500 mg PO BID Vitamin D3 25 mcg (1,000 unit) Tablet 25 mcg PO DAILY Discharge Orders: Discharge ED (Routine); Ordered 11/25/22 Ordered By: Barb Kumar Referrals: Trisha Urena MD [Primary Care Provider] - Discharge Diet: Usual diet Discharge Activity: Resume usual activity Patient Instructions: Opioid Safety, Pain Management Activity Restrictions/Additional Instructions: * Be careful not to pull or tug on your Villanueva catheter. * Drink lots of fluids. Follow-up with Dr. Paul (urology) in the clinic. manager [employer] will set up an appointment for you. * Stop taking Xarelto for the next 3 to 4 days or until the bleeding completely stops. * Return to the ER if bleeding resumes or worsens. Coding Level of Care Code ED Senior Information Systems Architect for Say Muñoz
[2022-11-25 13:57] LABS: Alanine Aminotransferase 17 U/L (0-41); Albumin Level 3.9 g/dL (3.5-5.2); Alkaline Phosphatase 68 U/L (40-130); Anion Gap 15.8 (5-19); Aspartate Amino Transferase 19 U/L (0-40); Blood Urea Nitrogen 32 mg/dL (8-23); Calcium 9.5 mg/dL (8.5-10.5); Carbon Dioxide 25 mmol/L (22-29); Chloride 98 mmol/L (98-107); Globulin 3.1 g/dL (1.3-4.6); Glucose 249 mg/dL (65-115); Osmolality Calculated 293 mOsm/kg (285-295); Potassium 4.8 mmol/L (3.5-5.1); Sodium 134 mmol/L (136-145); Total Bilirubin 0.2 mg/dL (0.15-1.2)
[2022-11-25 14:14] LABS: Bilirubin Urine 1+ (Negative); Blood Urine 3+ (Negative); Glucose Urine UA Trace (Normal); Ketones Urine 1+ (Negative); Leukocyte Esterase Urine 2+ (Negative); Nitrate Urine Positive (Negative); Protein Urine 3+ (Negative); Specific Gravity, Urine 1.015 (1.005-1.030); Urine Appearance Turbid (CLEAR); Urine Color Red (Yellow); Urobilinogen Urine 1 mg/dL (Negative); pH Urine 5 (5-7)
[2022-11-25 14:15] LABS: Add Urine Microscopic? YES
[2022-11-25 14:16] LABS: Bacteria Urine TRACE /hpf; RBC Urine TOO NUMEROUS TO CNT /hpf (0-2); Squamous Epithelial Cell Urine 0-4 /hpf (0-5); WBC Urine >100 /hpf (0-5)
[2022-11-25 14:17] LABS: Add Urine Culture? Yes
[2022-11-25] MEDS: iohexol 350 mg/mL 500 mL Btl (per mL) IV (14:42)
--- NOTE | 2022-11-25 15:00 | PC.PHAR ---
pt states he still takes xarelto 15mg at bedtime- medication not [facility] current [facility] and external shows last filled 03/10/2022 90ds 15mg once daily
[2022-11-25 17:47] VITALS: PULSE 71; RESP 14; O2SAT 93
== END 2022-11-25 18:43 | disposition home or self-care (01) ==
PROVIDERS: Nurse Practitioner Family; Emergency Provider Family Medicine; PCP Family Medicine
DX: R31.9 Hematuria, unspecified (principal); I48.91 Unspecified atrial fibrillation; Z79.01 Long term (current) use of anticoagulants; Z79.4 Long term (current) use of insulin; Z79.84 Long term (current) use of oral hypoglycemic drugs; K57.30 Diverticulosis of large intestine without perforation or abscess without bleeding; K76.0 Fatty (change of) liver, not elsewhere classified; Z87.891 Personal history of nicotine dependence; E11.9 Type 2 diabetes mellitus without complications; Z85.46 Personal history of malignant neoplasm of prostate; I10 Essential (primary) hypertension
CPT/HCPCS: 51798; 74177; 80053; 81001; 85025; 87086; 99285; Q9967

== ENCOUNTER → 2022-12-03 12:08 | Outpatient (BNVA) | payer OTHER, SELFPAY | PROVIDERS: PCP Family Medicine; Visit Provider Urology | DX: N30.01 Acute cystitis with hematuria (principal); R33.8 Other retention of urine | CPT/HCPCS: 52000; 87086; 87106; 99213 ==

== ENCOUNTER → 2023-01-06 09:42 | Outpatient (BNVA) | payer OTHER, SELFPAY | PROVIDERS: PCP Family Medicine; Visit Provider Urology | DX: R33.8 Other retention of urine (principal); R82.71 Bacteriuria; N30.20 Other chronic cystitis without hematuria; N39.41 Urge incontinence | CPT/HCPCS: 51798; 52000; 81003; 87086; 99213 ==

== ENCOUNTER 2023-01-14 10:33 | Outpatient (CLI) | payer OTHER, SELFPAY ==
--- NOTE | 2023-01-14 10:48 | USCV_ITS ---
Raphael Deal Age: 72 Gender: M : 1950 Exam Date: 01/14/2023 11:08 Ordering Phys: Trisha Urena MD Technologist: WILLIS Exam Location: [facility] [place] Indication: AAA Screening HISTORY: Diameter (cm) AP x Transverse x Length Velocity (cm/s) Waveform Prox Aorta: 1.32 x 1.33 x 63.90 Mid Aorta: 1.68 x 2.00 x 41.40 Distal Aorta: 1.44 x 1.81 x 40.80 Right Iliac Prox: 1.00 x 1.30 x 46.70 Left Iliac Prox: 1.08 x 1.27 x 44.00 Stent Prox Landing x x Aneurysmal Sac Max x x Lt Lat Sac Dim Rt Lat Sac Dim Stent Dist Landing x x Right Iliac Stent x x Left Iliac Stent x x Right Renal Art Left Renal Art FINDINGS: CONCLUSIONS No evidence of abdominal aortic or bilateral iliac aneurysm. Dar Chi MD (Electronically Signed) Final Date: 14 January 2023 12:01 S
== END 2023-01-14 10:34 | disposition home or self-care (01) ==
LOC: RAD 10:41
PROVIDERS: PCP Family Medicine; Visit Provider Family Medicine
DX: Z13.6 Encounter for screening for cardiovascular disorders (principal)
CPT/HCPCS: 76706

== ENCOUNTER → 2023-01-21 12:13 | Outpatient (BNVA) | payer OTHER, SELFPAY | PROVIDERS: PCP Family Medicine; Visit Provider Urology | DX: N39.41 Urge incontinence (principal); R33.9 Retention of urine, unspecified; R33.8 Other retention of urine; N30.01 Acute cystitis with hematuria; N30.20 Other chronic cystitis without hematuria; Z78.9 Other specified health status | CPT/HCPCS: 51798; 81003; 87077; 87086; 87186; 99213 ==

== ENCOUNTER 2023-01-27 12:42 | Observation (INO) | payer OTHER, SELFPAY ==
[2023-01-27] VITALS (17 sets, daily range): BP systolic 105–178; BP diastolic 64–90; PULSE 63–86; RESP 14–22; TEMP 36.3–36.4; O2SAT 95–98; BMI 34.2
--- NOTE | 2023-01-27 16:05 | W.ED.MALEGU ---
HPI - Male Genitourinary General: Chief complaint: Urogenital-Male Stated complaint: urinary pain Time Seen by Provider: 01/27/23 16:03 History of Present Illness: Mr. Hernandes is a 72-year-old gentleman with history of urinary retention with intermittent self cath at home and current recurrent UTI presenting to the emergency department for concern over increased pain with catheter use, suprapubic pain, and possible hallucinations. His daughter at bedside reports that he had hallucinations last night though the patient himself does not remember this. Patient denies fevers, headache, nausea, vomiting, other GI symptoms. Overall course of genital symptoms have worsened. Intensity is moderate. No other specific changes in health, exacerbating, or alleviating factors identified. Onset (ago): hour(s) Severity: moderate Exacerbating factors: urination and other Review of Systems General: Reports: 10 or more systems reviewed and unremarkable except in HPI and below PFSH ED PFSH: Medical History Anemia Atrial fibrillation BPH loc w urin obs/LUTS Cervicalgia of sdizvloz-hsmhlgm-qobmn region Chronic anticoagulation Xarelto secondary to atrial fibrillation Diabetes mellitus, type II Diabetic foot ulcer 08/2021 - treated with I&D, antibiotics and wound care clinic management 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 mellitus H/O prostate cancer Hematuria due to acute cystitis History of cardiovascular stress test 05/2021 normal EKG response, perfusion study without findings of ischemia History of Doppler ultrasound 08/2021 venous no DVT BLE 08/2021 arterial patent vessels, left posterior tibial may be less than 60% stenosis, left dorsalis pedis not visualized History of echocardiogram 05/2021 EF 65% History of electromyography 01/23 Interpretation: The study provides electrodiagnostic evidence for an axonal sensorimotor polyneuropathy based on small or absent CMAPs and SNAPs with denervation seen distally on EMG. The study is limited for evaluation of lumbar radiculopathy related to the patient's anticoagulated state. History of sleep study 02/22 limited sleep, no apnea noted but did have nocturnal hypoxemia, recommended to use nocturnal oxygen HTN (hypertension) previously on treatment for high blood pressure Intermittent self-catheterization of bladder due to urinary retention Left ureteral calculus Lumbar stenosis L2/3, L3/4, L4/L5, with radiculopathy right lower extremity Lumbar stenosis with neurogenic claudication Obstructive pyelonephritis 09/2021 required ureteral stent placement Obstructive sleep apnea Refuses CPAP SARS-CoV-2 positive positive test 11/17/2021 symptoms weakness, hypoglycemia, altered mental status and low grade fever Surgical History H/O esophagogastroduodenoscopy (10/30/21) 10/2021 pedunculated polyps removed from first portion of duodenum, otherwise normal History of back surgery History of colonoscopy (10/30/21) 11/2021 diverticulosis of sigmoid colon and internal hemorrhoids, sessile polyps removed History of laminectomy 03/25 bilateral with partial facetectomies at L2-3, L3-4, L4-[address] Smith History of pilonidal cyst Other postprocedural status history of radiofrequency ablation for back pain x 2 S/P appendectomy S/P tonsillectomy S/P ureteral stent placement (09/2021) subsequent removal Status post excisional debridement 08/2021 left foot Status post laser lithotripsy of ureteral calculus (11/06/21) Family History Grandmother Heart disease Hypertension Grandfather Hypertension MATERNAL Diabetes Mother No problems noted. Father No problems noted. 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 Financial difficulty paying for basics: Very Hard Physical Exam Const: COMMON NORMALS: alert GENERAL APPEARANCE: cooperative and well developed HENMT: COMMON NORMALS: normocephalic and atraumatic HEAD & SCALP: normocephalic and atraumatic THROAT: posterior oropharynx normal Eye: COMMON NORMALS: conjunctivae normal CONJUNCTIVA: Yes conjunctivae normal SCLERA: sclerae normal Neck/C-Spine: COMMON NORMALS: supple GENERAL: Yes trachea midline Resp: COMMON NORMALS: normal respiratory effort EFFORT & INSPECTION: Yes able to speak in complete sentences Cardio: COMMON NORMALS: regular rate and regular rhythm RATE: regular rate RHYTHM: regular rhythm GI: COMMON NORMALS: Soft to palpation PALPATION: Yes Soft to palpation, No Tenderness to palpation present (GI), No Guarding due to palpation present (GI) and No Rigid due to palpation : OTHER: Mild amount of blood without active bleeding about the meatus, no other abnormality identified Extremity: GENERAL: Yes normal exam except as noted and No edema Neuro: COMMON NORMALS: moves all extremities SENSORIUM/ORIENTATION: Yes alert and No Orientation impaired Psych: COMMON NORMALS: mental status grossly normal and Normal thought process present THOUGHT PROCESS: Normal thought process present Course Vital Signs: Vital signs: Vital Signs Temperature 98.3 F 01/29/23 15:44 Pulse Rate 75 01/29/23 15:44 Respiratory Rate 17 01/29/23 15:44 Blood Pressure 161/79 01/29/23 15:44 Pulse Oximetry 94 01/29/23 15:44 Oxygen Delivery Me thod Room Air 01/27/23 20:35 MDM - Male Medical Decision Making 73-year-old gentleman with history of intermittent self cath presenting with urinary symptoms and possible complex UTI symptoms. No focal neurologic deficits appreciated on exam. Exam otherwise as above, patient is nontoxic. Labs notable for leukocytosis, normal hemoglobin and platelet count. Metabolic panel with mild dehydration and elevated creatinine. Lactic acid is elevated with improvement on repeat. Urinalysis is concerning for urinary tract infection. CT head negative for acute pathology to explain symptoms. Chest x-ray with no lobar consolidation or pneumothorax. Patient treated with antibiotics and IV fluids. Is likely etiology of patient's symptoms is complicated UTI with RAI and elevated lactic acid. The results of ED evaluation were discussed with the patient including plan for admission due to requirement for level of care not available if discharged to prevent significant worsening/deterioration. Patient agreeable with plan. Discussed with hospitalist service who was agreeable to admit patient. Medical Records I reviewed the patient's medical records. Lab Data I reviewed the patient's lab results. 01/28/23 04:41 01/29/23 09:11 Radiology Impressions Chest X-Ray 01/27/23 16:16 IMPRESSION: No acute findings. Head CT 01/27/23 16:16 IMPRESSION: No acute intracranial abnormality. Laboratory Results WBC 12.3 10^3/uL (4.0-10.0) H 01/27/23 17: RBC 4.38 10^6/uL (4.1-5.3) 01/27/23 17: Hgb 13.5 g/dL (11.7-16.6) 01/27/23 17: Hct 40.1 % (42.0-52.0) L 01/27/23 17: MCV 91.6 fl (80-94) 01/27/23 17: MCH 30.8 pg (28.0-34.0) 01/27/23 17: MCHC 33.7 g/dL (30.0-36.0) 01/27/23 17: RDW 13.3 % (12.1-15.1) 01/27/23 17: Plt Count 366 10^3/cmm (130-400) 01/27/23 17: MPV 10.2 fL (7.4-10.4) 01/27/23 17: Neut % (Auto) 62.7 % 01/27/23 17: Lymph % (Auto) 21.4 % 01/27/23 17: Ness % (Auto) 10.3 % 01/27/23 17: Eos % (Auto) 4.2 % 01/27/23 17: Baso % (Auto) 0.7 % 01/27/23 17: Neut # (Auto) 7.68 10^3/uL (1.8-7.7) 01/27/23 17: Lymph # (Auto) 2.6 10^3/uL (0.8-4.8) 01/27/23 17: Ness # (Auto) 1.3 10^3/uL (0.2-0.9) H 01/27/23 17: Eos # (Auto) 0.5 10^3/uL (0.0-0.8) 01/27/23 17: Baso # (Auto) 0.1 10^3/uL (0.0-0.1) 01/27/23 17: Nucleated RBC % (auto) 0 % 01/27/23 17: Nucleated RBCs # 0.0 /100WBC 01/27/23 17: Sodium 133 mmol/L (136-145) L 01/27/23 17:01 Potassium 4.2 mmol/L (3.5-5.1) 01/27/23 17:01 Chloride 96 mmol/L (98-107) L 01/27/23 17:01 Carbon Dioxide 22 mmol/L (22-29) 01/27/23 17:01 Anion Gap 19.2 (5-19) H 01/27/23 17:01 BUN 52 mg/dL (8-23) H 01/27/23 17:01 Creatinine 1.8 mg/dL (0.7-1.2) H 01/27/23 17:01 GFR Calculation Not Reportable 01/27/23 17: Glucose 288 mg/dL (65-115) H 01/27/23 17:01 Calculated Osmolality 301 mOsm/kg (285-295) H 01/27/23 17:01 Lactic Acid 2.2 mmol/L (0.5-2.2) 01/27/23 19:04 Lactate 2.6 mmol/L (0.5-2.2) H 01/27/23 17:01 Calcium 9.3 mg/dL (8.5-10.5) 01/27/23 17:01 Total Bilirubin 0.3 mg/dL (0.15-1.2) 01/27/23 17:01 AST 11 U/L (0-40) 01/27/23 17:01 ALT 12 U/L (0-41) 01/27/23 17:01 Alkaline Phosphatase 115 U/L (40-130) 01/27/23 17:01 Total Protein 8.0 g/dL (6.6-8.7) 01/27/23 17:01 Albumin 4.1 g/dL (3.5-5.2) 01/27/23 17:01 Globulin 3.9 g/dL (1.3-4.6) 01/27/23 17:01 Procalcitonin 0.16 ng/mL (0-0.5) 01/27/23 17:01 TSH 0.73 uIU/mL (0.27-4.20) 01/27/23 17:01 Urine Color [place] (Yellow) 01/27/23 16:26 Urine Appearance Cloudy (CLEAR) A 01/27/23 16:26 Urine pH 6 (5-7) 01/27/23 16:26 Ur Specific [place] 1.015 (1.005-1.030) 01/27/23 16:26 Urine Protein 3+ (Negative) H 01/27/23 16:26 Urine Glucose (UA) 4+ (Normal) H 01/27/23 16:26 Urine Ketones Negative (Negative) 01/27/23 16:26 Urine Blood 3+ (Negative) H 01/27/23 16:26 Urine Nitrate Positive (Negative) H 01/27/23 16:26 Urine Bilirubin 1+ (Negative) H 01/27/23 16:26 Urine Urobilinogen 1 mg/dL (Negative) H 01/27/23 16:26 Ur Leukocyte Esterase 2+ (Negative) H 01/27/23 16:26 Urine RBC Too numerous to cnt /hpf (0-2) H 01/27/23 16:26 Urine WBC Too numerous to cnt /hpf (0-5) H 01/27/23 16:26 Ur Squamous Epith Cells None /hpf (0-5) 01/27/23 16:26 Amorphous Sediment Not Reportable 01/27/23 16:26 Urine Bacteria 1+ /hpf (NONE) H 01/27/23 16:26 Discharge Plan Discharge Patient Disposition: Placed in Observation Admit Provider: César Price Clinical Impression: Acute UTI, Sepsis, RAI (acute kidney injury) Discharge Diet: Diabetic and Low Salt Discharge Activity: Resume usual activity and Increase activity as tolerated Coding Level of Care Code ED 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
--- NOTE | 2023-01-27 16:16 | XRR_ITS ---
PROCEDURE INFORMATION: Exam: XR Chest Exam date and time: 01/27/2023 4:29 PM Age: 72 years old Clinical indication: Shortness of breath; Additional info: SOB TECHNIQUE: Imaging protocol: Radiologic exam of the chest. Views: 1 view. COMPARISON: CR XR chest 1V portable [id number] 07/27/2022 6:42 PM FINDINGS: Lungs: Unremarkable. No consolidation. Pleural spaces: Unremarkable. No pleural effusion. No pneumothorax. Heart/Mediastinum: Unremarkable. No cardiomegaly. Bones/joints: Unremarkable. XR/XR chest 1V portable [id number] IMPRESSION: No acute findings.
--- NOTE | 2023-01-27 16:16 | CTR_ITS ---
PROCEDURE INFORMATION: Exam: CT Head Without Contrast Exam date and time: 01/27/2023 5:18 PM Age: 72 years old Clinical indication: Altered mental status/memory loss and other: Hallucinations; Additional info: Episode of hallucinations TECHNIQUE: Imaging protocol: Computed tomography of the head without contrast. Radiation optimization: All CT scans at this facility use at least one of these dose optimization techniques: automated exposure control; mA and/or kV adjustment per patient size (includes targeted exams where dose is matched to clinical indication); or iterative reconstruction. REPORTING DATA: Count of CT and Cardiac NM exams in prior 12 months: This patient has received [address] and 0 known cardiac nuclear medicine studies in the 12 months prior to the current study. COMPARISON: CT head wo con* [id number] 12/06/2021 3:12 PM RADIATION DOSE METRICS: Total DLP (mGy-cm): 1170 FINDINGS: Brain: Normal. No hemorrhage. Unremarkable white matter. No mass effect. Cerebral ventricles: No ventriculomegaly. Paranasal sinuses: Visualized sinuses are unremarkable. No fluid levels. Mastoid air cells: Visualized mastoid air cells are well aerated. Bones/joints: Unremarkable. No acute fracture. Soft tissues: Unremarkable. CT/CT head wo con* [id number] IMPRESSION: No acute intracranial abnormality.
[2023-01-27 17:10] LABS: Bilirubin Urine 1+ (Negative); Blood Urine 3+ (Negative); Glucose Urine UA 4+ (Normal); Ketones Urine Negative (Negative); Nitrate Urine Positive (Negative); Protein Urine 3+ (Negative); Specific Gravity, Urine 1.015 (1.005-1.030); Urine Appearance Cloudy (CLEAR); Urine Color Orange (Yellow); Urobilinogen Urine 1 mg/dL (Negative); pH Urine 6 (5-7)
[2023-01-27 17:11] LABS: Add Urine Culture? Yes; Add Urine Microscopic? YES; Bacteria Urine 1+ /hpf; Leukocyte Esterase Urine 2+ (Negative); RBC Urine TOO NUMEROUS TO CNT /hpf (0-2); WBC Urine TOO NUMEROUS TO CNT /hpf (0-5)
[2023-01-27 17:13] LABS: Basophils # 0.1 10^3/uL (0.0-0.1); Basophils % 0.7 %; Eosinophils # 0.5 10^3/uL (0.0-0.8); Eosinophils % 4.2 %; Hematocrit 40.1 % (42.0-52.0); Hemoglobin 13.5 g/dL (11.7-16.6); Lymphocytes # 2.6 10^3/uL (0.8-4.8); Lymphocytes % 21.4 %; Mean Corpuscular HGB Conc 33.7 g/dL (30.0-36.0); Mean Corpuscular Hemoglobin 30.8 pg (28.0-34.0); Mean Corpuscular Volume 91.6 fl (80-94); Mean Platelet Volume 10.2 fL (7.4-10.4); Monocytes # 1.3 10^3/uL (0.2-0.9); Monocytes % 10.3 %; Neutrophils # 7.68 10^3/uL (1.8-7.7); Neutrophils % 62.7 %; Nucleated Red Blood Cells % 0 %; Platelet Count 366 10^3/cmm (130-400); Red Blood Count 4.38 10^6/uL (4.1-5.3); Red Cell Distribution Width 13.3 % (12.1-15.1); White Blood Count 12.3 10^3/uL (4.0-10.0)
[2023-01-27] MEDS: piperacillin-tazobactam 4.5 GM in sodium chloride 0.9% (plus) 50 ML IV (17:28)
[2023-01-27 17:35] LABS: Lactate (Lactic Acid level) 2.6 mmol/L (0.5-2.2)
[2023-01-27 17:45] LABS: Alanine Aminotransferase 12 U/L (0-41); Albumin Level 4.1 g/dL (3.5-5.2); Alkaline Phosphatase 115 U/L (40-130); Aspartate Amino Transferase 11 U/L (0-40); Blood Urea Nitrogen 52 mg/dL (8-23); Calcium 9.3 mg/dL (8.5-10.5); Carbon Dioxide 22 mmol/L (22-29); Chloride 96 mmol/L (98-107); Globulin 3.9 g/dL (1.3-4.6); Glucose 288 mg/dL (65-115); Osmolality Calculated 301 mOsm/kg (285-295); Sodium 133 mmol/L (136-145); Thyroid Stimulating Hormone 0.73 uIU/mL (0.27-4.20); Total Bilirubin 0.3 mg/dL (0.15-1.2)
[2023-01-27 17:47] LABS: Anion Gap 19.2 (5-19); Potassium 4.2 mmol/L (3.5-5.1)
--- NOTE | 2023-01-27 18:13 | P.HP_ITS ---
Providers/Chief Complaint Primary Care Provider: Trisha Urena MD Chief Complaint: urinary pain History of Present Illness Raphael Deal is a 72 year old male with a past medical history significant for atrial fibrillation, BPH, type 2 diabetes mellitus, anemia, spinal stenosis, neuropathy, hyperlipidemia, and urgency incontinence who self caths at home who presents to the emergency department with suprapubic pain and hallucinations, found to have urinary tract infection. He rates the pain as moderate. Palpation worsens the pain. Rest improves the pain. Per family, patient reportedly had hallucinations last night. Patient does not remember this. He does have a history of prior urinary tract infections. He denies other alleviating or aggravating factors. He denies any known fevers, chills, nausea or emesis. Review of Systems Narrative: A complete review of systems was obtained and is negative except as stated in HPI. Medications/Allergies Home Medications Medication Instructions Recorded Confirmed Last Taken Type omega-3 fatty acids 1,000 mg 1,000 mg PO BID 11/07/19 01/21/23 11/25/22 History capsule (Fish Oil Concentrate) fluticasone propionate 50 2 spray intranasal DAILY PRN 05/07/20 01/21/23 Unknown History mcg/actuation nasal Allergy Symptoms spray,suspension (Flonase Allergy Relief) gabapentin 800 mg tablet 800 mg PO TID 05/07/20 01/21/23 11/25/22 History sotalol 160 mg tablet 80 mg PO BID 05/07/20 01/21/23 11/25/22 History water aerobics #1 ea 05/09/21 01/21/23 Unknown Rx albuterol sulfate 90 mcg/actuation 2 puff inhalation Q4H PRN 10/03/21 01/21/23 Unknown History aerosol inhaler (ProAir HFA) Shortness Of Breath fluticasone 100 mcg-salmeterol 50 1 inh inhalation BID 10/03/21 01/21/23 11/25/22 History mcg/dose blistr powdr for inhalation (Wixela Inhub) rivaroxaban 15 mg tablet (Xarelto) 15 mg PO BEDTIME 12/04/21 01/21/23 11/24/22 History rosuvastatin 40 mg tablet 20 mg PO BEDTIME 12/04/21 01/21/23 11/25/22 History tamsulosin 0.4 mg capsule 0.4 mg PO BEDTIME 12/04/21 01/21/23 11/25/22 History blood-glucose meter,continuous #1 ea 12/18/21 01/21/23 Unknown Rx (Dexcom G6 Faculty Support Coordinator) bisacodyl 10 mg rectal suppository 10 mg CO DAILY PRN Constipation 01/22/22 01/21/23 Unknown History furosemide 20 mg tablet 20 mg PO BID 01/22/22 01/21/23 11/25/22 History insulin aspart U-100 100 unit/mL 35 unit (0.35 mL) .Route TID #30 mL 03/25/22 01/21/23 11/25/22 Rx (3 mL) subcutaneous pen (Novolog FlexPen U-100 Insulin aspart) insulin glargine 100 unit/mL (3 85 unit (0.85 mL) SUBCUT BEDTIME 03/25/22 01/21/23 11/24/22 Rx mL) subcutaneous pen (Lantus #75 mL Solostar U-100 Insulin) galantamine 4 mg tablet 4 mg PO BID #90 tabs 09/30/22 01/21/23 11/25/22 Rx cholecalciferol (vitamin D3) 25 25 mcg PO DAILY 11/25/22 01/21/23 Unknown History mcg (1,000 unit) tablet (Vitamin D3) digoxin 250 mcg (0.25 mg) tablet 250 mcg PO DAILY 11/25/22 01/21/23 11/25/22 History lisinopril 5 mg tablet 2.5 mg PO DAILY 11/25/22 01/21/23 11/25/22 History metformin 500 mg tablet,extended 500 mg PO BID 11/25/22 01/21/23 11/25/22 History release 24 hr methocarbamol 750 mg tablet 750 mg PO QID PRN Muscle Spasm 11/25/22 01/21/23 Unknown History blood-glucose sensor (Dexcom G6 #3 ea 12/04/22 01/21/23 Unknown Rx Sensor device) blood-glucose transmitter (Dexcom #1 ea 12/04/22 01/21/23 Unknown Rx G6 Transmitter device) fluconazole 100 mg tablet 100 mg PO DAILY 10 days #10 tabs 12/09/22 01/21/23 Unknown Rx cefuroxime axetil 500 mg tablet 500 mg PO BID #60 tabs 01/06/23 01/21/23 Unknown Rx levofloxacin 500 mg tablet 500 mg PO DAILY #20 tabs 01/27/23 Unknown Rx Allergies Allergy/AdvReac Type Severity Reaction Status Date / Time No Known Allergies Allergy Verified 01/21/23 12:18 PFSH Acute PFSH: Medical History Anemia Atrial fibrillation BPH loc w urin obs/LUTS Cervicalgia of nipcrxrp-oqsnvst-jxhnw region Chronic anticoagulation Xarelto secondary to atrial fibrillation Diabetes mellitus, type II Diabetic foot ulcer 08/2021 - treated with I&D, antibiotics and wound care clinic management 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 mellitus H/O prostate cancer Hematuria due to acute cystitis History of cardiovascular stress test 05/2021 normal EKG response, perfusion study without findings of ischemia History of Doppler ultrasound 08/2021 venous no DVT BLE 08/2021 arterial patent vessels, left posterior tibial may be less than 60% stenosis, left dorsalis pedis not visualized History of echocardiogram 05/2021 EF 65% History of electromyography 01/23 Interpretation: The study provides electrodiagnostic evidence for an axonal sensorimotor polyneuropathy based on small or absent CMAPs and SNAPs with denervation seen distally on EMG. The study is limited for evaluation of lumbar radiculopathy related to the patient's anticoagulated state. History of sleep study 02/22 limited sleep, no apnea noted but did have nocturnal hypoxemia, recommended to use nocturnal oxygen HTN (hypertension) previously on treatment for high blood pressure Intermittent self-catheterization of bladder due to urinary retention Left ureteral calculus Lumbar stenosis L2/3, L3/4, L4/L5, with radiculopathy right lower extremity Lumbar stenosis with neurogenic claudication Obstructive pyelonephritis 09/2021 required ureteral stent placement Obstructive sleep apnea Refuses CPAP SARS-CoV-2 positive positive test 11/17/2021 symptoms weakness, hypoglycemia, altered mental status and low grade fever Surgical History H/O esophagogastroduodenoscopy (10/30/21) 10/2021 pedunculated polyps removed from first portion of duodenum, otherwise normal History of back surgery History of colonoscopy (10/30/21) 11/2021 diverticulosis of sigmoid colon and internal hemorrhoids, sessile polyps removed History of laminectomy 03/25 bilateral with partial facetectomies at L2-3, L3-4, L4-[address] Smith History of pilonidal cyst Other postprocedural status history of radiofrequency ablation for back pain x 2 S/P appendectomy S/P tonsillectomy S/P ureteral stent placement (09/2021) subsequent removal Status post excisional debridement 08/2021 left foot Status post laser lithotripsy of ureteral calculus (11/06/21) Family History Grandmother Heart disease Hypertension Grandfather Hypertension MATERNAL Diabetes Mother No problems noted. Father No problems noted. 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 Appears stated age. Appears fatigued. Head: Normocephalic. Atraumatic. EOM intact. Neck: No JVD. Cardiovascular: RRR. No gallops. No murmurs. No peripheral edema. Lungs: Clear to auscultation, no use of accessory muscles, no crackles or wheezes. Skin: No jaundice. No rashes. Abdomen: Normal bowel sounds, abdomen soft and nontender. Genito Urinary: Genital exam not performed since complaints not related. Rectal: Rectal exam not performed since no symptoms indicated blood loss. Extremities: No cyanosis or clubbing. Musculoskeletal: 5/5 strength, normal range of motion, no swollen or erythematous joints. Neurological: Moves all 4 extremities. No myoclonus. Data 01/27/23 17:01 01/27/23 17:01 A&P Assessment and plan (1) Acute UTI: Prior urine cultures reviewed Urine culture ordered Start Zosyn (2) RAI (acute kidney injury): Suspect to be prerenal in the setting of infection versus ATN Start IV fluids Avoid nephrotoxins Trend renal function Strict I's and O's (3) Atrial fibrillation: Continue Xarelto Continue sotalol (4) BPH loc w urin obs/LUTS: Patient may continue to self intermittent cath Continue Flomax (5) Diabetes mellitus, type II: Continue Lantus at reduced home dose Continue scheduled lispro at reduced home dose Sliding-scale insulin correction Avoid hypoglycemia Qualifiers: Diabetes mellitus intermediate insulin use: with terminal make up operator use Diabetes mellitus complication status: with neurologic complications Diabetes mellitus complication detail: with polyneuropathy Qualified Code(s): E11.42 - Type 2 diabetes mellitus with diabetic polyneuropathy; Z79.4 - [facility] (current) use of insulin (6) 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 mellitus: Continue gabapentin Plan DVT prophylaxis: Xarelto CODE STATUS: Full code Attestations Medical Necessity Statement*: Patient presents with suprapubic pain in the setting of hallucinations, found to have urinary tract infection with expected hospitalization to require cultures, IV fluids, supportive care and IV antibiotics with expected hospitalization not to cross 2 midnights. Coding Level of Care Code Acute Code for [facility] Diagnoses Acute UTI N39.0 RAI (acute kidney injury) N17.9 Atrial fibrillation I48.91 BPH loc w urin obs/LUTS N40.1 Diabetes mellitus, type II E11.42; Z79.4 Diabetes mellitus terminal make up operator insulin use: with terminal make up operator use Diabetes mellitus complication status: with neurologic complications Diabetes mellitus complication detail: with polyneuropathy 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 mellitus E11.40
[2023-01-27 19:41] LABS: Lactic Sepsis W/Reflex 2.2 mmol/L (0.5-2.2)
[2023-01-27 20:58] LABS: Reflex Lactate Order REFLEX LACTIC ORDERD
[2023-01-27 21:17] LABS: Procalcitonin 0.16 ng/mL (0-0.5)
--- NOTE | 2023-01-27 21:20 | PC.NURSE ---
Dr. Pascal notified that patient takes Xarelto at home for A-fib and that it is ordered to give now. Notified of hematuria. Ordered to hold this dose.
[2023-01-27] MEDS: gabapentin 400 mg Capsule 800 MG PO (21:25)
[2023-01-27] MEDS: atorvastatin 40 mg Tablet PO (21:25)
[2023-01-27] MEDS: tamsulosin 0.4 mg Capsule PO (21:25)
[2023-01-27 21:32] LABS: Glucose Point of Care 264 mg/dL (70-110)
[2023-01-27] MEDS: insulin glargine 100 units/1 mL 50 UNIT SUBCUT (21:33)
[2023-01-27] MEDS: sodium chloride 0.9% 1,000 ML 100 ML IV (21:34)
[2023-01-27 22:27] LABS: Lactic Acid level (Lactate) 1.4 mmol/L (0.5-2.2)
[2023-01-28] VITALS (7 sets, daily range): BP systolic 136–168; BP diastolic 62–78; PULSE 71–94; RESP 16–20; TEMP 36.6–37.7; O2SAT 92–98
[2023-01-28] MEDS: HYDROcodone-acetaminophen 5-325 mg Tablet 1 TAB PO (02:17)
--- NOTE | 2023-01-28 05:26 | PC.NURSE ---
Dr. Pascal notified that hematuria has improved.
[2023-01-28 05:28] LABS: Basophils # 0.1 10^3/uL (0.0-0.1); Basophils % 0.6 %; Eosinophils # 0.4 10^3/uL (0.0-0.8); Eosinophils % 3.5 %; Hematocrit 32.9 % (42.0-52.0); Hemoglobin 11.1 g/dL (11.7-16.6); Lymphocytes # 1.3 10^3/uL (0.8-4.8); Lymphocytes % 10.6 %; Mean Corpuscular HGB Conc 33.7 g/dL (30.0-36.0); Mean Corpuscular Hemoglobin 31.3 pg (28.0-34.0); Mean Corpuscular Volume 92.7 fl (80-94); Mean Platelet Volume 10.1 fL (7.4-10.4); Monocytes # 1.2 10^3/uL (0.2-0.9); Monocytes % 9.5 %; Neutrophils # 9.52 10^3/uL (1.8-7.7); Neutrophils % 75.1 %; Nucleated Red Blood Cells % 0 %; Platelet Count 312 10^3/cmm (130-400); Red Blood Count 3.55 10^6/uL (4.1-5.3); Red Cell Distribution Width 13.2 % (12.1-15.1); White Blood Count 12.7 10^3/uL (4.0-10.0)
[2023-01-28 05:46] LABS: Alanine Aminotransferase 9 U/L (0-41); Alkaline Phosphatase 87 U/L (40-130); Anion Gap 17.2 (5-19); Aspartate Amino Transferase 9 U/L (0-40); Blood Urea Nitrogen 41 mg/dL (8-23); Calcium 8.8 mg/dL (8.5-10.5); Carbon Dioxide 17 mmol/L (22-29); Chloride 104 mmol/L (98-107); Globulin 2.9 g/dL (1.3-4.6); Glucose 334 mg/dL (65-115); Magnesium 1.9 mg/dL (1.7-2.3); Osmolality Calculated 301 mOsm/kg (285-295); Phosphorus 2.8 mg/dL (2.5-4.5); Potassium 4.2 mmol/L (3.5-5.1); Sodium 134 mmol/L (136-145); Total Bilirubin 0.3 mg/dL (0.15-1.2); Total Protein 5.9 g/dL (6.6-8.7)
[2023-01-28 06:23] LABS: Glucose Point of Care 366 mg/dL (70-110)
[2023-01-28] MEDS: sodium chloride 0.9% 1,000 ML 100 ML IV ×2 (07:48→17:57)
[2023-01-28] MEDS: sotalol 80 mg Tablet PO ×2 (07:51→17:17)
[2023-01-28] MEDS: gabapentin 400 mg Capsule 800 MG PO ×3 (07:51→20:21)
[2023-01-28] MEDS: digoxin 250 mcg Tablet PO (07:52)
--- NOTE | 2023-01-28 09:11 | PC.PHAR ---
[facility]ed [facility] at [facility]:45- pts contacts are unreachable
--- NOTE | 2023-01-28 09:32 | PC.CHAP ---
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 experiential therapist visit [] Patient/Family/Request visit [] Outpatient visit [] Follow-up visit [] Physician referral [] Code/Alert [x] Routine visit [] Staff referral [] Actively dying [] Patient sleeping [] Family support [] [] Out of room [] Palliative care [] [] Receiving care in room [] Pre-surgical visit [] Trauma [] Long length of stay [] ICU visit [] Other: Relational/Emotional Strength [] Patient feels connected with others/family/visitors/staff [] Distress [] Loneliness/isolation [] Abandonment Spirituality of Patient [] Person of Melva [] Attends Voodoo of their Melva [] Believes in Prayer [] Reads Bible or Amish materials [x] There are Spiritual issues to be addressed Press Set Up Interventions [] Prayer [x] Active listening [x] Non-anxious presence [x] Spiritual/emotional support [] Crisis/trauma care [] Spiritual counseling [] Bereavement support [] Provided bereavement packet [] Provided Bible/devotional materials [] Provided toy/stuffed animal, coloring book to patient or family member [] Provided Communion [] Anointing/[place] [] Salvation [x] Completed spiritual assessment [] Other: Impact on Illness or Injury [] Angry [] Fearful [] Anxious [] Often cries [] Exhaustion [] Unable to work [] Unable to attend anglican [] Unable to walk/stand [] Unable to read [] Unable to drive [] Unable to eat/drink [] Unable to sleep [] Unable to be with family [] Patient intubated [] Other: Summary Pt was sitting on edge of bed trying to eat breakfast but he did not feel well at all. Press Set Up assisted with getting some of his containers on his tray open and also located his phone for him. Time spent with patient 5m
[2023-01-28] MEDS: insulin lispro 100 unit/1 mL SUBCUT ×3 (09:56→17:57)
[2023-01-28 12:06] LABS: Glucose Point of Care 328 mg/dL (70-110)
--- NOTE | 2023-01-28 15:45 | PM.PN ---
Subjective Subjective: Patient endorses generalized malaise and fatigue. Villanueva catheter has been placed. Sediment noted in catheter. He denies fevers or chills. He is unsure about any confusion or hallucinations overnight. Medications: Reviewed: Yes Vitals/I&O/Wt Last Vital Signs Temp 98.0 F 01/28/23 12:00 Pulse 73 01/28/23 12:00 Resp 18 01/28/23 12:00 BP 168/77 01/28/23 12:00 Pulse Ox 93 01/28/23 12:00 O2 Del Method Room Air 01/27/23 20:35 01/28/23 01/28/23 01/28/23 06:59 14:59 22:59 Intake Total 1240 / 1240 Output Total 2200 / 2800 1999 / 1999 Balance -2200 / -578 -760 / -760 Weight last 48 hrs Weight 102.058 kg Weight 99.79 kg Physical Exam Narrative: General: Patient is awake.? Lying in bed. Head:? Normocephalic. Atraumatic. EOM intact. Neck: No JVD. Cardiovascular: RRR. No gallops. No murmurs. Lungs: Clear to auscultation, no use of accessory muscles, no crackles or wheezes. Skin: No jaundice. No rashes. Abdomen: Normal bowel sounds, abdomen soft and nontender. Genito Urinary: Villanueva catheter with sediment present. Rectal: Rectal exam not performed since no symptoms indicated blood loss. Extremities: No cyanosis or clubbing. Musculoskeletal: 5/5 strength, normal range of motion, no swollen or erythematous joints. Neurological: Moves all 4 extremities. No myoclonus. Urinary Catheter Management: Villanueva: Cath Placed During This Visit: no Reason for Continuing Indwelling Catheter: Other Data 01/28/23 04:41 01/28/23 04:41 A&P Assessment and plan (1) Acute UTI: Urine cultures reviewed Continue Zosyn (01/27-P) (2) RAI (acute kidney injury): Associated with metabolic acidosis Patient remains in renal failure Continue normal saline Avoid nephrotoxins Trend renal function Strict I's and O's (3) Atrial fibrillation: Continue Xarelto Continue sotalol (4) BPH loc w urin obs/LUTS: Status post catheter placement Continue Flomax (5) Diabetes mellitus, type II: Continue Lantus at reduced home dose Continue scheduled lispro at reduced home dose Sliding-scale insulin correction Avoid hypoglycemia Qualifiers: Diabetes mellitus long term acute care registered nurse insulin use: with long term acute care registered nurse use Diabetes mellitus complication status: with neurologic complications Diabetes mellitus complication detail: with polyneuropathy Qualified Code(s): E11.42 - Type 2 diabetes mellitus with diabetic polyneuropathy; Z79.4 - FDC (current) use of insulin (6) 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 mellitus: Continue gabapentin Plan DVT prophylaxis: Xarelto CODE STATUS: Full code Attestations Medical Necessity Statement*: Patient requires ongoing care for urine culture, IV antibiotics, IV fluids for renal injury and supportive care. Coding Level of Care Code Acute Code for [facility] Fwd Diagnoses Acute UTI N39.0 RAI (acute kidney injury) N17.9 Atrial fibrillation I48.91 BPH loc w urin obs/LUTS N40.1 Diabetes mellitus, type II E11.42; Z79.4 Diabetes mellitus long term acute care registered nurse insulin use: with long term acute care registered nurse use Diabetes mellitus complication status: with neurologic complications Diabetes mellitus complication detail: with polyneuropathy 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 mellitus E11.40
[2023-01-28 16:35] LABS: Glucose Point of Care 322 mg/dL (70-110)
[2023-01-28] MEDS: atorvastatin 40 mg Tablet PO (20:21)
[2023-01-28] MEDS: rivaroxaban 10 mg Tablet 15 MG PO (20:21)
[2023-01-28] MEDS: tamsulosin 0.4 mg Capsule PO (20:22)
[2023-01-28] MEDS: insulin glargine 100 units/1 mL 50 UNIT SUBCUT (20:23)
[2023-01-29] VITALS: BP 145/75; PULSE 70; RESP 16; TEMP 36.7; O2SAT 96
[2023-01-29 04:00] VITALS: BP 135/73; PULSE 71; RESP 16; TEMP 37; O2SAT 94
[2023-01-29] MEDS: sodium chloride 0.9% 1,000 ML 100 ML IV (04:21)
[2023-01-29 06:22] LABS: Glucose Point of Care 246 mg/dL (70-110)
[2023-01-29 08:00] VITALS: BP 142/64; PULSE 75; RESP 17; TEMP 37; O2SAT 94
[2023-01-29 10:08] LABS: Albumin Level 3.1 g/dL (3.5-5.2); Blood Urea Nitrogen 25 mg/dL (8-23); Calcium 8.2 mg/dL (8.5-10.5); Carbon Dioxide 21 mmol/L (22-29); Chloride 108 mmol/L (98-107); Glucose 238 mg/dL (65-115); Phosphorus 2.7 mg/dL (2.5-4.5); Sodium 139 mmol/L (136-145)
[2023-01-29 10:21] VITALS: PULSE 75
[2023-01-29] MEDS: gabapentin 400 mg Capsule 800 MG PO (10:21)
[2023-01-29] MEDS: digoxin 250 mcg Tablet PO (10:21)
[2023-01-29] MEDS: sotalol 80 mg Tablet PO (10:22)
[2023-01-29] MEDS: insulin lispro 100 unit/1 mL SUBCUT ×2 (10:22→13:34)
[2023-01-29 12:00] VITALS: BP 161/79; PULSE 75; RESP 17; TEMP 36.8; O2SAT 94
--- NOTE | 2023-01-29 12:54 | PM.DCS ---
Discharge Providers Date of Admission: 01/27/23 19:17 Date of Discharge: January 29, 2023 Attending Provider at Admission: César Price MD Attending Provider at Discharge: César Price MD Primary Care Provider: Trisha Urena MD Diagnoses at Discharge Discharge Diagnosis (1) Acute UTI: Status: Acute (2) RAI (acute kidney injury): Status: Acute (3) Atrial fibrillation: Status: Chronic (4) BPH loc w urin obs/LUTS: Status: Chronic (5) Diabetes mellitus, type II: Status: Chronic Qualifiers: Diabetes mellitus intermediate insulin use: with intermediate use Diabetes mellitus complication status: with neurologic complications Diabetes mellitus complication detail: with polyneuropathy Qualified Code(s): E11.42 - Type 2 diabetes mellitus with diabetic polyneuropathy; Z79.4 - skilled nursing (current) use of insulin (6) 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 mellitus: Status: Acute Reason for Visit Reason for Visit: urinary pain Hospital Course Hospital Course Raphael Deal is a 72 year old male with a past medical history significant for atrial fibrillation, BPH, type 2 diabetes mellitus, anemia, spinal stenosis, neuropathy, hyperlipidemia, and urgency incontinence who self caths at home who presents to the emergency department with suprapubic pain and hallucinations, found to have Pseudomonal aureginosa urinary tract infection and acute kidney injury. Villanueva catheter placed. Patient treated with IV levofloxacin and IV fluids resuscitation. Hallucinations resolved. Renal function improved. Patient discussed with Dr Paul who recommended discharge with Villanueva catheter. Patient will follow up with Dr Paul and his PCP in clinic for further management. Physical Exam Narrative: General: Patient is awake.? Alert. Pleasant. Head:? Normocephalic. Atraumatic. EOM intact. Neck: No JVD. Cardiovascular: RRR. No gallops. No murmurs. Lungs: Clear to auscultation, no use of accessory muscles, no crackles or wheezes. Skin: No jaundice. No rashes. Abdomen: Normal bowel sounds, abdomen soft and nontender. Genito Urinary: Villanueva catheter. Rectal: Rectal exam not performed since no symptoms indicated blood loss. Extremities: No cyanosis or clubbing. Musculoskeletal: No swollen or erythematous joints. Neurological: Moves all 4 extremities. No myoclonus. Urinary Catheter Management: Villanueva: Cath Placed During This Visit: no Reason for Continuing Indwelling Catheter: Acute Urinary Retention or Obstruction Discharge Data Studies Completed and Pending Completed Studies During Hospitalization Category Date Time Status CT head wo con* [id number] Stat Cat Scan 01/27/23 16:16 Completed XR chest 1V portable [id number] Stat Exams 01/27/23 16:16 Completed Pending at discharge Category Date Time Status Urine Culture Stat Lab 01/27/23 16:26 Results Radiology Impressions Chest X-Ray 01/27/23 16:16 IMPRESSION: No acute findings. Head CT 01/27/23 16:16 IMPRESSION: No acute intracranial abnormality. Laboratory Results WBC 12.7 10^3/uL (4.0-10.0) H 01/28/23 04:41 RBC 3.55 10^6/uL (4.1-5.3) L 01/28/23 04:41 Hgb 11.1 g/dL (11.7-16.6) L 01/28/23 04:41 Hct 32.9 % (42.0-52.0) L 01/28/23 04:41 MCV 92.7 fl (80-94) 01/28/23 04:41 MCH 31.3 pg (28.0-34.0) 01/28/23 04:41 MCHC 33.7 g/dL (30.0-36.0) 01/28/23 04:41 RDW 13.2 % (12.1-15.1) 01/28/23 04:41 Plt Count 312 10^3/cmm (130-400) 01/28/23 04:41 MPV 10.1 fL (7.4-10.4) 01/28/23 04:41 Neut % (Auto) 75.1 % 01/28/23 04:41 Lymph % (Auto) 10.6 % 01/28/23 04:41 [place] % (Auto) 9.5 % 01/28/23 04:41 Eos % (Auto) 3.5 % 01/28/23 04:41 Baso % (Auto) 0.6 % 01/28/23 04:41 Neut # (Auto) 9.52 10^3/uL (1.8-7.7) H 01/28/23 04:41 Lymph # (Auto) 1.3 10^3/uL (0.8-4.8) 01/28/23 04:41 [place] # (Auto) 1.2 10^3/uL (0.2-0.9) H 01/28/23 04:41 Eos # (Auto) 0.4 10^3/uL (0.0-0.8) 01/28/23 04:41 Baso # (Auto) 0.1 10^3/uL (0.0-0.1) 01/28/23 04:41 Nucleated RBC % (auto) 0 % 01/28/23 04:41 Nucleated RBCs # 0.0 /100WBC 01/28/23 04:41 Sodium 139 mmol/L (136-145) 01/29/23 09:11 Potassium 4.0 mmol/L (3.5-5.1) 01/29/23 09:11 Chloride 108 mmol/L (98-107) H 01/29/23 09:11 Carbon Dioxide 21 mmol/L (22-29) L 01/29/23 09:11 Anion Gap 14.0 (5-19) 01/29/23 09:11 BUN 25 mg/dL (8-23) H 01/29/23 09:11 Creatinine 1.1 mg/dL (0.7-1.2) 01/29/23 09:11 GFR Calculation Not Reportable 01/29/23 09:11 Glucose 238 mg/dL (65-115) H 01/29/23 09:11 POC Glucose 246 mg/dL (70-110) H 01/29/23 06:12 Calculated Osmolality 301 mOsm/kg (285-295) H 01/28/23 04:41 Lactic Acid 2.2 mmol/L (0.5-2.2) 01/27/23 19:04 Lactic Acid (Sepsis) 1.4 mmol/L (0.5-2.2) 01/27/23 22:06 Lactate 2.6 mmol/L (0.5-2.2) H 01/27/23 17:01 Calcium 8.2 mg/dL (8.5-10.5) L 01/29/23 09:11 Phosphorus 2.7 mg/dL (2.5-4.5) 01/29/23 09:11 Magnesium 1.9 mg/dL (1.7-2.3) 01/28/23 04:41 Total Bilirubin 0.3 mg/dL (0.15-1.2) 01/28/23 04:41 AST 9 U/L (0-40) 01/28/23 04:41 ALT 9 U/L (0-41) 01/28/23 04:41 Alkaline Phosphatase 87 U/L (40-130) 01/28/23 04:41 Total Protein 5.9 g/dL (6.6-8.7) L D 01/28/23 04:41 Albumin 3.1 g/dL (3.5-5.2) L 01/29/23 09:11 Globulin 2.9 g/dL (1.3-4.6) 01/28/23 04:41 Procalcitonin 0.16 ng/mL (0-0.5) 01/27/23 17:01 TSH 0.73 uIU/mL (0.27-4.20) 01/27/23 17:01 Urine Color [place] (Yellow) 01/27/23 16:26 Urine Appearance Cloudy (CLEAR) A 01/27/23 16:26 Urine pH 6 (5-7) 01/27/23 16:26 Ur Specific [place] 1.015 (1.005-1.030) 01/27/23 16:26 Urine Protein 3+ (Negative) H 01/27/23 16:26 Urine Glucose (UA) 4+ (Normal) H 01/27/23 16:26 Urine Ketones Negative (Negative) 01/27/23 16:26 Urine Blood 3+ (Negative) H 01/27/23 16:26 Urine Nitrate Positive (Negative) H 01/27/23 16:26 Urine Bilirubin 1+ (Negative) H 01/27/23 16:26 Urine Urobilinogen 1 mg/dL (Negative) H 01/27/23 16:26 Ur Leukocyte Esterase 2+ (Negative) H 01/27/23 16:26 Urine RBC Too numerous to cnt /hpf (0-2) H 01/27/23 16:26 Urine WBC Too numerous to cnt /hpf (0-5) H 01/27/23 16:26 Ur Squamous Epith Cells None /hpf (0-5) 01/27/23 16:26 Amorphous Sediment Not Reportable 01/27/23 16:26 Urine Bacteria 1+ /hpf (NONE) H 01/27/23 16:26 Procedures Performed None Vitals Last Vital Signs Temp 98.3 F 01/29/23 12:00 Pulse 75 01/29/23 12:00 Resp 17 01/29/23 12:00 BP 161/79 01/29/23 12:00 Pulse Ox 94 01/29/23 12:00 O2 Del Method Room Air 01/27/23 20:35 Discharge Plan Discharge Condition: Stable Prescriptions: New levofloxacin 750 mg tablet 750 mg PO DAILY 12 Days Qty: 12 0RF Continued omega-3 fatty acids [Fish Oil Concentrate] 1,000 mg capsule 1,000 mg PO BID (DME) Dexcom G6 [employer] [place] Misc See Rx Instructions .Route Qty: 1 0RF Rx Instructions: Check BS 4-6 times a day. (DME) water aerobics See Rx Instructions .Route .MEDSUPPLY Qty: 1 0RF Rx Instructions: As directed furosemide 20 mg tablet 20 mg PO BID insulin aspart U-100 [Novolog FlexPen U-100 Insulin] 100 unit/mL (3 mL) insulin pen 35 unit .ROUTE TID Qty: 30 3RF Rx Instructions: 35 units three times daily; Lantus Solostar U-100 Insulin 100 unit/mL (3 mL) insulin pen 85 unit SUBCUT BEDTIME Qty: 75 3RF galantamine 4 mg tablet 4 mg PO BID Qty: 90 3RF Rx Instructions: administer with AM and PM meals (DME) Dexcom G6 Sensor Device See Rx Instructions .Route Qty: 3 3RF Rx Instructions: Change every 10 days. (DME) Dexcom G6 Transmitter Device See Rx Instructions .Route Qty: 1 3RF Rx Instructions: Change every 90 days. sotalol 160 mg Tablet 80 mg PO BID gabapentin 800 mg Tablet 800 mg PO TID fluticasone propionate [Flonase Allergy Relief] 50 mcg/actuation [place],Suspension 2 spray INTRANASAL DAILY PRN (Reason: Allergy Symptoms) fluticasone propion-salmeterol [Wixela Inhub] 100-50 mcg/dose Blister With Device 1 inh INHALATION BID albuterol sulfate [ProAir HFA] 90 mcg/actuation HFA aerosol inhaler 2 puff INHALATION Q4H PRN (Reason: Shortness Of Breath) rosuvastatin 40 mg tablet 20 mg PO BEDTIME tamsulosin 0.4 mg capsule 0.4 mg PO BEDTIME digoxin 250 mcg (0.25 mg) Tablet 250 mcg PO DAILY methocarbamol 750 mg tablet 750 mg PO QID PRN (Reason: Muscle Spasm) lisinopril 5 mg Tablet 2.5 mg PO DAILY metformin 500 mg tablet extended release 24 hr 500 mg PO BID cholecalciferol (vitamin D3) [Vitamin D3] 25 mcg (1,000 unit) Tablet 25 mcg PO DAILY phenazopyridine 100 mg Tablet 100 mg PO BID PRN (Reason: Pain) Discontinued cefuroxime axetil 500 mg tablet 500 mg PO BID Qty: 60 1RF levofloxacin 500 mg tablet 500 mg PO DAILY Qty: 20 1RF Discharge Orders: Discharge Order (Routine); Ordered 01/29/23 Ordered By: César Price Referrals: Misael Paul MD [Physician] - 2 weeks Trisha Urena MD [Primary Care Provider] - 4-7 days Discharge Diet: Diabetic and Low Salt Discharge Activity: Resume usual activity and Increase activity as tolerated Patient Instructions: Opioid Safety Activity Restrictions/Additional Instructions: 1. Take medications as prescribed. 2. Follow up with PCP. 3. Follow up with Urology. 4. Routine Villanueva catheter care Discharge Attestations Time Spent in Discharge Care*: greater than 30 min Status at Discharge: Cognitive status at discharge: cognitively intact, Behavioral status at discharge: cooperative, Overall status at discharge: patient is progressing back to baseline Quality Metrics Clinical Quality Measures [ No reported AMI, CVA or VTE this stay] Coding Level of Care Code Acute Code for g Fwd Diagnoses Acute UTI N39.0 RAI (acute kidney injury) N17.9 Atrial fibrillation I48.91 BPH loc w urin obs/LUTS N40.1 Diabetes mellitus, type II E11.42; Z79.4 Diabetes mellitus intermediate insulin use: with rat exterminator use Diabetes mellitus complication status: with neurologic complications Diabetes mellitus complication detail: with polyneuropathy 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 mellitus E11.40
[2023-01-29 14:26] LABS: Glucose Point of Care 273 mg/dL (70-110)
[2023-01-29 15:44] VITALS: BP 161/79; PULSE 75; RESP 17; TEMP 36.8; O2SAT 94
== END 2023-01-29 15:15 | disposition home health service (06) ==
LOC: ER 18:30 → MEDSURG 19:37 → CSU 01-29 12:59 → MEDSURG 01-29 12:59
PROVIDERS: Physician Assistant; Admitting Provider Internal Medicine; Emergency Provider Emergency Medicine; PCP Family Medicine; Visit Provider Internal Medicine
DX: N39.0 Urinary tract infection, site not specified (principal); B96.5 Pseudomonas (aeruginosa) (mallei) (pseudomallei) as the cause of diseases classified elsewhere; A41.9 Sepsis, unspecified organism; R65.20 Severe sepsis without septic shock; N17.9 Acute kidney failure, unspecified; E11.42 Type 2 diabetes mellitus with diabetic polyneuropathy; I10 Essential (primary) hypertension; E78.5 Hyperlipidemia, unspecified; G47.33 Obstructive sleep apnea (adult) (pediatric); I48.20 Chronic atrial fibrillation, unspecified; N40.1 Benign prostatic hyperplasia with lower urinary tract symptoms; Z86.16 Personal history of COVID-19; Z87.891 Personal history of nicotine dependence; Z79.4 Long term (current) use of insulin; Z79.84 Long term (current) use of oral hypoglycemic drugs; Z79.01 Long term (current) use of anticoagulants; Z79.899 Other long term (current) drug therapy; N13.8 Other obstructive and reflux uropathy
CPT/HCPCS: 36415; 36416; 70450; 71045; 80053; 80069; 81001; 82962; 83605; 83735; 84100; 84145; 84443; 85025; 87086; 96361; 96365; 96372; 97110; 97116; 97161; 97530; 99285; G0378; J1815; J2543; J7030

== ENCOUNTER 2023-02-03 16:00 | Emergency (ER) | payer OTHER, SELFPAY ==
[2023-02-03 16:14] VITALS: BP 128/69; PULSE 76; RESP 14; TEMP 36.8; O2SAT 95; BMI 32.8
--- NOTE | 2023-02-03 16:17 | ECG_ITS ---
[facility] Test Date: 2023-02-03 Pat Name: Raphael Deal Department: Room: Gender: Male Certified Travel Counselor: : 1950 Requested By: Fermin Chavez Order Number: [id number] Nilay MD: Meghan Valles M.D. Measurements Intervals [place] Rate: 72 P: 103 NC: 213 QRS: 53 QRSD: 143 T: 29 QT: 432 QTc: 473 Interpretive Statements SINUS RHYTHM WITH FIRST DEGREE AV BLOCK WITH FREQUENT SUPRAVENTRICULAR PREMATURE COMPLEXES RIGHT BUNDLE BRANCH BLOCK [120+ ms QRS DURATION, UPRIGHT V1, 40+ ms S IN I/aVL/V4/V5/V6] Compared to ECG 12/04/2021 11:30:48 First degree AV block now present Electronically Signed On 02-04-2023 0:22:10 CDT by Meghan Valles M.D. [email or web address]
--- NOTE | 2023-02-03 16:19 | W.ED.WEAKNES ---
Documented by User: Fermin Mijares DO 02/05/23 06:29 HPI - Weakness General: Chief complaint: Weakness Time Seen by Provider: 02/03/23 16:17 Source: patient Mode of arrival: ambulatory History of Present Illness: 72-year-old male presents emergency room with complaints of dizziness when he sits up or walks. Its better when he lays down and rest. He is also complaining of low back pain. He has no fever sweats or chills. He was recently hospitalized and discharged 1 week ago at that time he had urinary retention and discharged home with a Villanueva catheter. He denies any vomiting or diarrhea. MD Complaint: generalized weakness Onset (ago): day(s) Location: generalized Severity: moderate Relieving factors: none Exacerbating factors: none Associated symptoms: Reports headache(s) and nausea; Denies chest pain, chills, confusion, melena, decreased appetite, diaphoresis, dysuria, easy bruising, fever(s), myalgias, rash, short of breath, syncope or vomiting Review of Systems Const: Denies: fever(s), chills or diaphoresis ENMT: Denies: throat pain, ear or mastoid pain, nasal discharge or nasal congestion Card: Denies: chest pain or syncope Resp: Denies: dyspnea, productive cough or non-productive cough GI: Reports: nausea; Denies: vomiting or melena : Denies: dysuria Musc: Denies: neck pain or back pain Skin/Breast: Denies: rash or pruritus Neuro: Reports: headache(s); Denies: confusion Psych: Reports: other (Dizziness) Felix/Lymph: Denies: easy bruising [facility] ED PFSH: Medical History Anemia Atrial fibrillation BPH loc w urin obs/LUTS Cervicalgia of xjfaigav-rgpaavb-cxsdd region Chronic anticoagulation Xarelto secondary to atrial fibrillation Diabetes mellitus, type II Diabetic foot ulcer 08/2021 - treated with I&D, antibiotics and wound care clinic management 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 mellitus H/O prostate cancer Hematuria due to acute cystitis History of cardiovascular stress test 05/2021 normal EKG response, perfusion study without findings of ischemia History of Doppler ultrasound 08/2021 venous no DVT BLE 08/2021 arterial patent vessels, left posterior tibial may be less than 60% stenosis, left dorsalis pedis not visualized History of echocardiogram 05/2021 EF 65% History of electromyography 01/23 Interpretation: The study provides electrodiagnostic evidence for an axonal sensorimotor polyneuropathy based on small or absent CMAPs and SNAPs with denervation seen distally on EMG. The study is limited for evaluation of lumbar radiculopathy related to the patient's anticoagulated state. History of sleep study 02/22 limited sleep, no apnea noted but did have nocturnal hypoxemia, recommended to use nocturnal oxygen HTN (hypertension) previously on treatment for high blood pressure Intermittent self-catheterization of bladder due to urinary retention Left ureteral calculus Lumbar stenosis L2/3, L3/4, L4/L5, with radiculopathy right lower extremity Lumbar stenosis with neurogenic claudication Obstructive pyelonephritis 09/2021 required ureteral stent placement Obstructive sleep apnea Refuses CPAP SARS-CoV-2 positive positive test 11/17/2021 symptoms weakness, hypoglycemia, altered mental status and low grade fever Surgical History H/O esophagogastroduodenoscopy (10/30/21) 10/2021 pedunculated polyps removed from first portion of duodenum, otherwise normal History of back surgery History of colonoscopy (10/30/21) 11/2021 diverticulosis of sigmoid colon and internal hemorrhoids, sessile polyps removed History of laminectomy 03/25 bilateral with partial facetectomies at L2-3, L3-4, L4-[address] Smith History of pilonidal cyst Other postprocedural status history of radiofrequency ablation for back pain x 2 S/P appendectomy S/P tonsillectomy S/P ureteral stent placement (09/2021) subsequent removal Status post excisional debridement 08/2021 left foot Status post laser lithotripsy of ureteral calculus (11/06/21) Family History Grandmother Heart disease Hypertension Grandfather Hypertension MATERNAL Diabetes Mother No problems noted. Father No problems noted. 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 Financial difficulty paying for basics: Very Hard Physical Exam Const: GENERAL APPEARANCE: cooperative and comfortable ORIENTATION/CONSCIOUSNESS: Yes awake, Yes oriented to person, Yes oriented to place and Yes oriented to time HENMT: COMMON NORMALS: normocephalic, atraumatic and hearing grossly normal bilaterally HEAD & SCALP: normocephalic and atraumatic Resp: COMMON NORMALS: normal respiratory effort, No retractions, No use of accessory muscles and clear to auscultation bilaterally AUSCULTATION: clear to auscultation bilaterally Cardio: COMMON NORMALS: regular rate, regular rhythm and No murmurs present (Cardio) RATE: regular rate RHYTHM: regular rhythm GI: COMMON NORMALS: Soft to palpation and No hepatosplenomegaly present AUSCULTATION: Yes normoactive bowel sounds PALPATION: Yes Soft to palpation, No Tenderness to palpation present (GI), No Guarding due to palpation present (GI) and Yes No hepatosplenomegaly present Extremity: COMMON NORMALS: normal to inspection, capillary refill normal, no clubbing, cyanosis or edema, no calf tenderness and no pedal edema Neuro: SENSORIUM/ORIENTATION: Yes oriented to person, Yes oriented to place and Yes oriented to time Skin: COMMON NORMALS: no rashes or lesions noted GENERAL SKIN EXAM: no rashes or lesions noted Course Vital Signs: Vital signs: Vital Signs Temperature 98.3 F 02/03/23 16:14 Pulse Rate 71 02/03/23 18:34 Respiratory Rate 16 02/03/23 18:34 Blood Pressure 130/67 02/03/23 18:34 Pulse Oximetry 96 02/03/23 18:34 Oxygen Delivery Me thod Room Air 02/03/23 17:30 MDM - Weakness Medical Decision Making Care signed out to Dr. Nolan at change of shift. See final notes for diagnosis and disposition. Patient presents here with some generalized weakness he is feeling improved here patient's care was turned to Dr. Vazquez following CT scan of his head with likely discharge of normal head CT is normal blood work is normal we will culture his urine he is to follow-up his PCP and return if worsening he understands agrees to plan. Medical Records I reviewed the patient's medical records. Lab Data 02/03/23 16:40 02/03/23 16:[address] 02/03/23 16:32 IMPRESSION: No acute intracranial abnormality. Laboratory Results WBC 14.6 10^3/uL (4.0-10.0) H 02/03/23 16:40 RBC 3.54 10^6/uL (4.1-5.3) L 02/03/23 16:40 Hgb 10.9 g/dL (11.7-16.6) L 02/03/23 16:40 Hct 32.3 % (42.0-52.0) L 02/03/23 16:40 MCV 91.2 fl (80-94) 02/03/23 16:40 MCH 30.8 pg (28.0-34.0) 02/03/23 16:40 MCHC 33.7 g/dL (30.0-36.0) 02/03/23 16:40 RDW 13.3 % (12.1-15.1) 02/03/23 16:40 Plt Count 347 10^3/cmm (130-400) 02/03/23 16:40 MPV 9.6 fL (7.4-10.4) 02/03/23 16:40 Neut % (Auto) 70.6 % 02/03/23 16:40 Lymph % (Auto) 17.0 % 02/03/23 16:40 [place] % (Auto) 6.8 % 02/03/23 16:40 Eos % (Auto) 4.2 % 02/03/23 16:40 Baso % (Auto) 0.5 % 02/03/23 16:40 Neut # (Auto) 10.33 10^3/uL (1.8-7.7) H 02/03/23 16:40 Lymph # (Auto) 2.5 10^3/uL (0.8-4.8) 02/03/23 16:40 [place] # (Auto) 1.0 10^3/uL (0.2-0.9) H 02/03/23 16:40 Eos # (Auto) 0.6 10^3/uL (0.0-0.8) 02/03/23 16:40 Baso # (Auto) 0.1 10^3/uL (0.0-0.1) 02/03/23 16:40 Nucleated RBC % (auto) 0 % 02/03/23 16:40 Nucleated RBCs # 0.0 /100WBC 02/03/23 16:40 Sodium 137 mmol/L (136-145) 02/03/23 16:40 Potassium 3.5 mmol/L (3.5-5.1) 02/03/23 16:40 Chloride 99 mmol/L (98-107) 02/03/23 16:40 Carbon Dioxide 21 mmol/L (22-29) L 02/03/23 16:40 Anion Gap 20.5 (5-19) H 02/03/23 16:40 BUN 31 mg/dL (8-23) H 02/03/23 16:40 Creatinine 1.7 mg/dL (0.7-1.2) H 02/03/23 16:40 GFR Calculation Not Reportable 02/03/23 16:40 Glucose 172 mg/dL (65-115) H 02/03/23 16:40 Calculated Osmolality 295 mOsm/kg (285-295) 02/03/23 16:40 Calcium 9.4 mg/dL (8.5-10.5) 02/03/23 16:40 Total Bilirubin 0.3 mg/dL (0.15-1.2) 02/03/23 16:40 AST 12 U/L (0-40) 02/03/23 16:40 ALT 11 U/L (0-41) 02/03/23 16:40 Alkaline Phosphatase 91 U/L (40-130) 02/03/23 16:40 Total Protein 6.2 g/dL (6.6-8.7) L 02/03/23 16:40 Albumin 3.4 g/dL (3.5-5.2) L 02/03/23 16:40 Globulin 2.8 g/dL (1.3-4.6) 02/03/23 16:40 Urine Color [place] (Yellow) 02/03/23 16:21 Urine Appearance Cloudy (CLEAR) A 02/03/23 16:21 Urine pH TNP 02/03/23 16:21 Ur Specific [place] TNP 02/03/23 16:21 Urine Protein TNP 02/03/23 16:21 Urine Glucose (UA) TNP 02/03/23 16:21 Urine Ketones TNP 02/03/23 16:21 Urine Blood TNP 02/03/23 16:21 Urine Nitrate TNP 02/03/23 16:21 Urine Bilirubin TNP 02/03/23 16:21 Urine Urobilinogen TNP 02/03/23 16:21 Ur Leukocyte Esterase TNP 02/03/23 16:21 Urine RBC 10-15 /hpf (0-2) H 02/03/23 16:21 Urine WBC >100 /hpf (0-5) H 02/03/23 16:21 Ur Squamous Epith Cells 0-4 /hpf (0-5) H 02/03/23 16:21 Amorphous Sediment Not Reportable 02/03/23 16:21 Urine Bacteria 1+ /hpf (NONE) H 02/03/23 16:21 Urine Yeast 1+ /hpf H 02/03/23 16:21 Discharge Plan Discharge Patient Disposition: Home Clinical Impression: Weakness Condition: Stable Prescriptions: No Action omega-3 fatty acids [Fish Oil Concentrate] 1,000 mg capsule 1,000 mg PO BID (DME) Dexcom G6 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 (DME) water aerobics See Rx Instructions .Route .MEDSUPPLY Qty: 1 0RF Rx Instructions: As directed furosemide 20 mg tablet 20 mg PO BID insulin aspart U-100 [Novolog FlexPen U-100 Insulin] 100 unit/mL (3 mL) insulin pen 35 unit .ROUTE TID Qty: 30 3RF Rx Instructions: 35 units three times daily; galantamine 4 mg tablet 4 mg PO BID Qty: 90 3RF Rx Instructions: administer with AM and PM meals (DME) Dexcom G6 Sensor Device See Rx Instructions .Route Qty: 3 3RF Rx Instructions: Change every 10 days. (DME) Dexcom G6 Transmitter Device See Rx Instructions .Route Qty: 1 3RF Rx Instructions: Change every 90 days. sotalol 160 mg Tablet 80 mg PO BID gabapentin 800 mg Tablet 800 mg PO TID fluticasone propionate [Flonase Allergy Relief] 50 mcg/actuation [place],Suspension 2 spray INTRANASAL DAILY PRN (Reason: Allergy Symptoms) fluticasone propion-salmeterol [Wixela Inhub] 100-50 mcg/dose Blister With Device 1 inh INHALATION BID albuterol sulfate [ProAir HFA] 90 mcg/actuation HFA aerosol inhaler 2 puff INHALATION Q4H PRN (Reason: Shortness Of Breath) rosuvastatin 40 mg tablet 20 mg PO BEDTIME tamsulosin 0.4 mg capsule 0.4 mg PO BEDTIME digoxin 250 mcg (0.25 mg) Tablet 250 mcg PO DAILY methocarbamol 750 mg tablet 750 mg PO QID PRN (Reason: Muscle Spasm) lisinopril 5 mg Tablet 2.5 mg PO DAILY metformin 500 mg tablet extended release 24 hr 500 mg PO BID cholecalciferol (vitamin D3) [Vitamin D3] 25 mcg (1,000 unit) Tablet 25 mcg PO DAILY phenazopyridine 100 mg Tablet 100 mg PO BID PRN (Reason: Pain) levofloxacin 750 mg tablet 750 mg PO DAILY 12 Days Qty: 12 0RF multivitamin Tablet 1 tab PO DAILY coenzyme Q10 10 mg Capsule 10 mg PO DAILY cyanocobalamin (vitamin B-12) 1,000 mcg/mL Solution 1,000 mcg IM Q30D cranberry 500 mg Capsule 500 mg PO DAILY Rx Instructions: administer with meals Glucerna Liquid 1 ea PO DAILY Lantus Solostar U-100 Insulin 100 unit/mL (3 mL) insulin pen 80 unit SUBCUT BEDTIME Discharge Orders: Discharge ED (Routine); Ordered 02/03/23 Ordered By: Luis Enrique Nolan Referrals: Trisha Urena MD [Primary Care Provider] - 1-3 days Discharge Diet: Advance as tolerated Discharge Activity: Resume usual activity Patient Instructions: Weakness (ED) Coding Level of Care Code ED Meal Attendant for Chg Fwd Documented by User: Luis Enrique Nolan MD 02/03/23 18:24 HPI - Weakness General: Chief complaint: Weakness Time Seen by Provider: 02/03/23 16:17 PFS ED PFSH: Medical History Anemia Atrial fibrillation BPH loc w urin obs/LUTS Cervicalgia of lphpudmw-wdrubiw-aljnp region Chronic anticoagulation Xarelto secondary to atrial fibrillation Diabetes mellitus, type II Diabetic foot ulcer 08/2021 - treated with I&D, antibiotics and wound care clinic management 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 mellitus H/O prostate cancer Hematuria due to acute cystitis History of cardiovascular stress test 05/2021 normal EKG response, perfusion study without findings of ischemia History of Doppler ultrasound 08/2021 venous no DVT BLE 08/2021 arterial patent vessels, left posterior tibial may be less than 60% stenosis, left dorsalis pedis not visualized History of echocardiogram 05/2021 EF 65% History of electromyography 01/23 Interpretation: The study provides electrodiagnostic evidence for an axonal sensorimotor polyneuropathy based on small or absent CMAPs and SNAPs with denervation seen distally on EMG. The study is limited for evaluation of lumbar radiculopathy related to the patient's anticoagulated state. History of sleep study 02/22 limited sleep, no apnea noted but did have nocturnal hypoxemia, recommended to use nocturnal oxygen HTN (hypertension) previously on treatment for high blood pressure Intermittent self-catheterization of bladder due to urinary retention Left ureteral calculus Lumbar stenosis L2/3, L3/4, L4/L5, with radiculopathy right lower extremity Lumbar stenosis with neurogenic claudication Obstructive pyelonephritis 09/2021 required ureteral stent placement Obstructive sleep apnea Refuses CPAP SARS-CoV-2 positive positive test 11/17/2021 symptoms weakness, hypoglycemia, altered mental status and low grade fever Surgical History H/O esophagogastroduodenoscopy (10/30/21) 10/2021 pedunculated polyps removed from first portion of duodenum, otherwise normal History of back surgery History of colonoscopy (10/30/21) 11/2021 diverticulosis of sigmoid colon and internal hemorrhoids, sessile polyps removed History of laminectomy 03/25 bilateral with partial facetectomies at L2-3, L3-4, L4-[address] Smith History of pilonidal cyst Other postprocedural status history of radiofrequency ablation for back pain x 2 S/P appendectomy S/P tonsillectomy S/P ureteral stent placement (09/2021) subsequent removal Status post excisional debridement 08/2021 left foot Status post laser lithotripsy of ureteral calculus (11/06/21) Family History Grandmother Heart disease Hypertension Grandfather Hypertension MATERNAL Diabetes Mother No problems noted. Father No problems noted. 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 Vazquez following CT scan of his head with likely discharge of normal head CT is normal blood work is normal we will culture his urine he is to follow-up his PCP and return if worsening he understands agrees to plan. Lab Data 02/03/23 16:40 02/03/23 16:[address] 02/03/23 16:32 IMPRESSION: No acute intracranial abnormality. Laboratory Results WBC 14.6 10^3/uL (4.0-10.0) H 02/03/23 16:40 RBC 3.54 10^6/uL (4.1-5.3) L 02/03/23 16:40 Hgb 10.9 g/dL (11.7-16.6) L 02/03/23 16:40 Hct 32.3 % (42.0-52.0) L 02/03/23 16:40 MCV 91.2 fl (80-94) 02/03/23 16:40 MCH 30.8 pg (28.0-34.0) 02/03/23 16:40 MCHC 33.7 g/dL (30.0-36.0) 02/03/23 16:40 RDW 13.3 % (12.1-15.1) 02/03/23 16:40 Plt Count 347 10^3/cmm (130-400) 02/03/23 16:40 MPV 9.6 fL (7.4-10.4) 02/03/23 16:40 Neut % (Auto) 70.6 % 02/03/23 16:40 Lymph % (Auto) 17.0 % 02/03/23 16:40 [place] % (Auto) 6.8 % 02/03/23 16:40 Eos % (Auto) 4.2 % 02/03/23 16:40 Baso % (Auto) 0.5 % 02/03/23 16:40 Neut # (Auto) 10.33 10^3/uL (1.8-7.7) H 02/03/23 16:40 Lymph # (Auto) 2.5 10^3/uL (0.8-4.8) 02/03/23 16:40 [place] # (Auto) 1.0 10^3/uL (0.2-0.9) H 02/03/23 16:40 Eos # (Auto) 0.6 10^3/uL (0.0-0.8) 02/03/23 16:40 Baso # (Auto) 0.1 10^3/uL (0.0-0.1) 02/03/23 16:40 Nucleated RBC % (auto) 0 % 02/03/23 16:40 Nucleated RBCs # 0.0 /100WBC 02/03/23 16:40 Sodium 137 mmol/L (136-145) 02/03/23 16:40 Potassium 3.5 mmol/L (3.5-5.1) 02/03/23 16:40 Chloride 99 mmol/L (98-107) 02/03/23 16:40 Carbon Dioxide 21 mmol/L (22-29) L 02/03/23 16:40 Anion Gap 20.5 (5-19) H 02/03/23 16:40 BUN 31 mg/dL (8-23) H 02/03/23 16:40 Creatinine 1.7 mg/dL (0.7-1.2) H 02/03/23 16:40 GFR Calculation Not Reportable 02/03/23 16:40 Glucose 172 mg/dL (65-115) H 02/03/23 16:40 Calculated Osmolality 295 mOsm/kg (285-295) 02/03/23 16:40 Calcium 9.4 mg/dL (8.5-10.5) 02/03/23 16:40 Total Bilirubin 0.3 mg/dL (0.15-1.2) 02/03/23 16:40 AST 12 U/L (0-40) 02/03/23 16:40 ALT 11 U/L (0-41) 02/03/23 16:40 Alkaline Phosphatase 91 U/L (40-130) 02/03/23 16:40 Total Protein 6.2 g/dL (6.6-8.7) L 02/03/23 16:40 Albumin 3.4 g/dL (3.5-5.2) L 02/03/23 16:40 Globulin 2.8 g/dL (1.3-4.6) 02/03/23 16:40 Urine Color [place] (Yellow) 02/03/23 16:21 Urine Appearance Cloudy (CLEAR) A 02/03/23 16:21 Urine pH TNP 02/03/23 16:21 Ur Specific [place] TNP 02/03/23 16:21 Urine Protein TNP 02/03/23 16:21 Urine Glucose (UA) TNP 02/03/23 16:21 Urine Ketones TNP 02/03/23 16:21 Urine Blood TNP 02/03/23 16:21 Urine Nitrate TNP 02/03/23 16:21 Urine Bilirubin TNP 02/03/23 16:21 Urine Urobilinogen TNP 02/03/23 16:21 Ur Leukocyte Esterase TNP 02/03/23 16:21 Urine RBC 10-15 /hpf (0-2) H 02/03/23 16:21 Urine WBC >100 /hpf (0-5) H 02/03/23 16:21 Ur Squamous Epith Cells 0-4 /hpf (0-5) H 02/03/23 16:21 Amorphous Sediment Not Reportable 02/03/23 16:21 Urine Bacteria 1+ /hpf (NONE) H 02/03/23 16:21 Urine Yeast 1+ /hpf H 02/03/23 16:21 Discharge Plan Discharge Patient Disposition: Home Clinical Impression: Weakness Condition: Stable Prescriptions: No Action omega-3 fatty acids [Fish Oil Concentrate] 1,000 mg capsule 1,000 mg PO BID (DME) Dexcom G6 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 (DME) water aerobics See Rx Instructions .Route .MEDSUPPLY Qty: 1 0RF Rx Instructions: As directed furosemide 20 mg tablet 20 mg PO BID insulin aspart U-100 [Novolog FlexPen U-100 Insulin] 100 unit/mL (3 mL) insulin pen 35 unit .ROUTE TID Qty: 30 3RF Rx Instructions: 35 units three times daily; galantamine 4 mg tablet 4 mg PO BID Qty: 90 3RF Rx Instructions: administer with AM and PM meals (DME) Dexcom G6 Sensor Device See Rx Instructions .Route Qty: 3 3RF Rx Instructions: Change every 10 days. (DME) Dexcom G6 Transmitter Device See Rx Instructions .Route Qty: 1 3RF Rx Instructions: Change every 90 days. sotalol 160 mg Tablet 80 mg PO BID gabapentin 800 mg Tablet 800 mg PO TID fluticasone propionate [Flonase Allergy Relief] 50 mcg/actuation [place],Suspension 2 spray INTRANASAL DAILY PRN (Reason: Allergy Symptoms) fluticasone propion-salmeterol [Wixela Inhub] 100-50 mcg/dose Blister With Device 1 inh INHALATION BID albuterol sulfate [ProAir HFA] 90 mcg/actuation HFA aerosol inhaler 2 puff INHALATION Q4H PRN (Reason: Shortness Of Breath) rosuvastatin 40 mg tablet 20 mg PO BEDTIME tamsulosin 0.4 mg capsule 0.4 mg PO BEDTIME digoxin 250 mcg (0.25 mg) Tablet 250 mcg PO DAILY methocarbamol 750 mg tablet 750 mg PO QID PRN (Reason: Muscle Spasm) lisinopril 5 mg Tablet 2.5 mg PO DAILY metformin 500 mg tablet extended release 24 hr 500 mg PO BID cholecalciferol (vitamin D3) [Vitamin D3] 25 mcg (1,000 unit) Tablet 25 mcg PO DAILY phenazopyridine 100 mg Tablet 100 mg PO BID PRN (Reason: Pain) levofloxacin 750 mg tablet 750 mg PO DAILY 12 Days Qty: 12 0RF multivitamin Tablet 1 tab PO DAILY coenzyme Q10 10 mg Capsule 10 mg PO DAILY cyanocobalamin (vitamin B-12) 1,000 mcg/mL Solution 1,000 mcg IM Q30D cranberry 500 mg Capsule 500 mg PO DAILY Rx Instructions: administer with meals Glucerna Liquid 1 ea PO DAILY Lantus Solostar U-100 Insulin 100 unit/mL (3 mL) insulin pen 80 unit SUBCUT BEDTIME Discharge Orders: Discharge ED (Routine); Ordered 02/03/23 Ordered By: Luis Enrique Nolan Referrals: Trisha Urena MD [Primary Care Provider] - 1-3 days Discharge Diet: Advance as tolerated Discharge Activity: Resume usual activity Patient Instructions: Weakness (ED) Coding Level of Care Code ED Meal Attendant for Say Muñoz
--- NOTE | 2023-02-03 16:32 | CTR_ITS ---
PROCEDURE INFORMATION: Exam: CT Head Without Contrast Exam date and time: 02/03/2023 5:21 PM Age: 72 years old Clinical indication: Dizziness TECHNIQUE: Imaging protocol: Computed tomography of the head without contrast. Radiation optimization: All CT scans at this facility use at least one of these dose optimization techniques: automated exposure control; mA and/or kV adjustment per patient size (includes targeted exams where dose is matched to clinical indication); or iterative reconstruction. REPORTING DATA: Count of CT and Cardiac NM exams in prior 12 months: This patient has received 2 known CTs and 0 known cardiac nuclear medicine studies in the 12 months prior to the current study. COMPARISON: CT head wo con* [id number] 01/27/2023 5:18 PM RADIATION DOSE METRICS: Total DLP (mGy-cm): 1244.99 FINDINGS: Brain: Chronic lacunar-type infarct right basal ganglia is unchanged. No acute infarct. No hemorrhage. Stable involutional changes of the brain. No mass effect. Cerebral ventricles: Stable ventricular size. No ventriculomegaly. Paranasal sinuses: Visualized sinuses are unremarkable. No fluid levels. Mastoid air cells: Visualized mastoid air cells are well aerated. Bones/joints: Unremarkable. No acute fracture. Soft tissues: Unremarkable. CT/CT head wo con* [id number] IMPRESSION: No acute intracranial abnormality.
[2023-02-03 16:47] LABS: Basophils # 0.1 10^3/uL (0.0-0.1); Basophils % 0.5 %; Eosinophils # 0.6 10^3/uL (0.0-0.8); Eosinophils % 4.2 %; Hematocrit 32.3 % (42.0-52.0); Hemoglobin 10.9 g/dL (11.7-16.6); Lymphocytes # 2.5 10^3/uL (0.8-4.8); Mean Corpuscular HGB Conc 33.7 g/dL (30.0-36.0); Mean Corpuscular Hemoglobin 30.8 pg (28.0-34.0); Mean Corpuscular Volume 91.2 fl (80-94); Mean Platelet Volume 9.6 fL (7.4-10.4); Monocytes % 6.8 %; Neutrophils # 10.33 10^3/uL (1.8-7.7); Neutrophils % 70.6 %; Nucleated Red Blood Cells % 0 %; Platelet Count 347 10^3/cmm (130-400); Red Blood Count 3.54 10^6/uL (4.1-5.3); Red Cell Distribution Width 13.3 % (12.1-15.1); White Blood Count 14.6 10^3/uL (4.0-10.0)
[2023-02-03 16:48] LABS: Add Urine Microscopic? YES; Urine Appearance Cloudy (CLEAR); Urine Color Orange (Yellow)
[2023-02-03] MEDS: sodium chloride 0.9% 1,000 ML 999 ML IV (16:49)
[2023-02-03 16:50] LABS: Bacteria Urine 1+ /hpf; Squamous Epithelial Cell Urine 0-4 /hpf (0-5); WBC Urine >100 /hpf (0-5)
[2023-02-03 16:51] LABS: Add Urine Culture? Yes; Other Sediment, Urine BUD YEAST W/HYPHAE
[2023-02-03 17:00] VITALS: BP 110/63; BP 110/68; BP 112/60; PULSE 76; PULSE 79; PULSE 84
[2023-02-03 17:06] LABS: Alanine Aminotransferase 11 U/L (0-41); Albumin Level 3.4 g/dL (3.5-5.2); Alkaline Phosphatase 91 U/L (40-130); Anion Gap 20.5 (5-19); Aspartate Amino Transferase 12 U/L (0-40); Blood Urea Nitrogen 31 mg/dL (8-23); Calcium 9.4 mg/dL (8.5-10.5); Carbon Dioxide 21 mmol/L (22-29); Chloride 99 mmol/L (98-107); Globulin 2.8 g/dL (1.3-4.6); Glucose 172 mg/dL (65-115); Osmolality Calculated 295 mOsm/kg (285-295); Potassium 3.5 mmol/L (3.5-5.1); Sodium 137 mmol/L (136-145); Total Bilirubin 0.3 mg/dL (0.15-1.2); Total Protein 6.2 g/dL (6.6-8.7)
[2023-02-03 17:30] VITALS: BP 133/68; PULSE 73; RESP 16; O2SAT 95
[2023-02-03 18:34] VITALS: BP 130/67; PULSE 71; RESP 16; O2SAT 96
== END 2023-02-03 18:40 | disposition home or self-care (01) ==
PROVIDERS: Family Medicine; Emergency Provider Emergency Medicine; PCP Family Medicine
DX: R53.1 Weakness (principal); Z79.4 Long term (current) use of insulin; Z79.84 Long term (current) use of oral hypoglycemic drugs; Z87.891 Personal history of nicotine dependence; E11.9 Type 2 diabetes mellitus without complications; Z85.46 Personal history of malignant neoplasm of prostate; I10 Essential (primary) hypertension
CPT/HCPCS: 36415; 70450; 80053; 81001; 85025; 87086; 87106; 93005; 96360; 99285; J7030

== ENCOUNTER → 2023-02-12 08:03 | Outpatient (BNVA) | payer OTHER, SELFPAY | PROVIDERS: PCP Family Medicine; Visit Provider Urology | DX: R33.9 Retention of urine, unspecified (principal); N30.20 Other chronic cystitis without hematuria; B37.49 Other urogenital candidiasis; Z78.9 Other specified health status | CPT/HCPCS: 52000; 87086; 99213 ==

== ENCOUNTER → 2023-03-10 16:14 | Outpatient (BNVA) | payer OTHER, SELFPAY | PROVIDERS: PCP Family Medicine; Visit Provider Urology | DX: N13.8 Other obstructive and reflux uropathy (principal); R33.9 Retention of urine, unspecified; N39.41 Urge incontinence; B37.49 Other urogenital candidiasis; N30.20 Other chronic cystitis without hematuria; Z90.49 Acquired absence of other specified parts of digestive tract; N40.1 Benign prostatic hyperplasia with lower urinary tract symptoms | CPT/HCPCS: 51798; 81003; 87086; 99213 ==

== ENCOUNTER → 2023-03-26 13:55 | Outpatient (BNVA) | payer OTHER, SELFPAY | PROVIDERS: PCP Family Medicine; Visit Provider Internal Medicine | DX: E11.42 Type 2 diabetes mellitus with diabetic polyneuropathy (principal); E11.40 Type 2 diabetes mellitus with diabetic neuropathy, unspecified; E78.2 Mixed hyperlipidemia; Z79.84 Long term (current) use of oral hypoglycemic drugs; Z79.4 Long term (current) use of insulin | CPT/HCPCS: 99214 ==

== ENCOUNTER → 2023-03-31 09:33 | Outpatient (BNVA) | payer OTHER, SELFPAY | PROVIDERS: PCP Family Medicine; Visit Provider Urology | DX: N40.1 Benign prostatic hyperplasia with lower urinary tract symptoms (principal); N30.20 Other chronic cystitis without hematuria; N32.89 Other specified disorders of bladder | CPT/HCPCS: 81003; 99213 ==

== ENCOUNTER → 2023-04-21 10:03 | Outpatient (BNVA) | payer OTHER, SELFPAY | PROVIDERS: PCP Family Medicine; Visit Provider Anesthesiology Pain Medicine | DX: M48.062 Spinal stenosis, lumbar region with neurogenic claudication (principal); M51.16 Intervertebral disc disorders with radiculopathy, lumbar region; M47.816 Spondylosis without myelopathy or radiculopathy, lumbar region; M16.0 Bilateral primary osteoarthritis of hip | CPT/HCPCS: 99214 ==

== ENCOUNTER 2023-05-14 00:21 | Inpatient (IN) | payer OTHER, SELFPAY ==
[2023-05-14] VITALS (11 sets, daily range): BP systolic 112–169; BP diastolic 63–104; PULSE 81–97; RESP 16–37; TEMP 36.6–38; O2SAT 92–96; BMI 31.7
--- NOTE | 2023-05-14 00:34 | ECG_ITS ---
[facility] Test Date: 2023-05-14 Pat Name: Raphael Deal Department: Room: Gender: Male Kitchen Steward: : 1950 Requested By: Jonnathan Romero Order Number: [id number] Nilay MD: Aleks Narvaez M.D. Measurements Intervals [place] Rate: 95 P: 105 NE: 206 QRS: 83 QRSD: 129 T: 67 QT: 354 QTc: 447 Interpretive Statements SINUS RHYTHM RIGHT BUNDLE BRANCH BLOCK [120+ ms QRS DURATION, UPRIGHT V1, 40+ ms S IN I/aVL/V4/V5/V6] Compared to ECG 02/03/2023 17:04:00 First degree AV block no longer present Electronically Signed On 05-15-2023 9:28:13 CDT by Aleks Narvaez M.D. [id number] f
--- NOTE | 2023-05-14 00:45 | XRR_ITS ---
PROCEDURE INFORMATION: Exam: XR Chest Exam date and time: 05/14/2023 2:06 AM Age: 73 years old Clinical indication: Fever TECHNIQUE: Imaging protocol: Radiologic exam of the chest. Views: 1 view. COMPARISON: CR XR chest 1V portable [id number] 01/27/2023 4:29 PM FINDINGS: Lungs: Unremarkable. No consolidation. Pleural spaces: Unremarkable. No pleural effusion. No pneumothorax. Heart/Mediastinum: Unremarkable. No cardiomegaly. Bones/joints: Unremarkable. XR/XR chest 1V portable [id number] IMPRESSION: No acute findings.
--- NOTE | 2023-05-14 00:47 | W.ED.FEVER ---
HPI - Fever General: Chief Complaint: Fever Stated Complaint: high bp, fever Time Seen by Provider: 05/14/23 00:39 History of Present Illness: 73-year-old male patient was brought in by his spouse for concerns of high fever and altered mental status. Spouse said that she went to bean pick[employer] groceries at 8:00 when she got off work and had talked to him and at that time he seemed normal. After picking up the groceries and leaving she had called him again and he seemed out of it . When she arrived home she checked his blood sugar and noted that he had a blood glucose above 400 and gave him his insulin about 35 units. She then checked his temperature and noted it was over 101. She believes he had taken some ibuprofen because he said he had. Patient reports generalized body pain. Patient does have a history of recurrent urinary tract infections. Patient has been taking a antibiotic levofloxacin for the last 20 days along with Diflucan. Patient has a history of diabetes mellitus, atrial fibs, chronic back pain, BPH, anemia, ALONSO, hypertension. Patient is only answering yes or no. Respirations are even. Patient is warm to the touch. Associated symptoms: Reports vomiting (1 episode); Deny chest pain, diarrhea or nausea Review of Systems General: Reports: 10 or more systems reviewed and unremarkable except in HPI and below Const: Reports: fever(s) and body aches Eyes: Denies: change in vision ENMT: Denies: throat pain Card: Denies: chest pain Resp: Denies: dyspnea GI: Reports: vomiting (1 episode); Denies: nausea, diarrhea or excessive flatus : Reports: other (History of urinary stones and severe urinary tract infection) Musc: Denies: neck pain or back pain Skin/Breast: Denies: rash Neuro: Reports: other (Altered mental status) Endo: Reports: other (Elevated blood glucose) PFS ED PFSH: Medical History Anemia Atrial fibrillation BPH loc w urin obs/LUTS Cervicalgia of xskntqae-zbykccd-fhmjt region Chronic anticoagulation Xarelto secondary to atrial fibrillation Diabetes mellitus, type II Diabetic foot ulcer 08/2021 - treated with I&D, antibiotics and wound care clinic management 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 mellitus H/O prostate cancer Hematuria due to acute cystitis History of cardiovascular stress test 05/2021 normal EKG response, perfusion study without findings of ischemia History of Doppler ultrasound 08/2021 venous no DVT BLE 08/2021 arterial patent vessels, left posterior tibial may be less than 60% stenosis, left dorsalis pedis not visualized History of echocardiogram 05/2021 EF 65% History of electromyography 01/23 Interpretation: The study provides electrodiagnostic evidence for an axonal sensorimotor polyneuropathy based on small or absent CMAPs and SNAPs with denervation seen distally on EMG. The study is limited for evaluation of lumbar radiculopathy related to the patient's anticoagulated state. History of sleep study 02/22 limited sleep, no apnea noted but did have nocturnal hypoxemia, recommended to use nocturnal oxygen HTN (hypertension) previously on treatment for high blood pressure Intermittent self-catheterization of bladder due to urinary retention Left ureteral calculus Lumbar stenosis L2/3, L3/4, L4/L5, with radiculopathy right lower extremity Lumbar stenosis with neurogenic claudication Obstructive pyelonephritis 09/2021 required ureteral stent placement Obstructive sleep apnea Refuses CPAP SARS-CoV-2 positive positive test 11/17/2021 symptoms weakness, hypoglycemia, altered mental status and low grade fever Surgical History H/O esophagogastroduodenoscopy (10/30/21) 10/2021 pedunculated polyps removed from first portion of duodenum, otherwise normal History of back surgery History of colonoscopy (10/30/21) 11/2021 diverticulosis of sigmoid colon and internal hemorrhoids, sessile polyps removed History of laminectomy 03/25 bilateral with partial facetectomies at L2-3, L3-4, L4-[address] Smith History of pilonidal cyst Other postprocedural status history of radiofrequency ablation for back pain x 2 S/P appendectomy S/P tonsillectomy S/P ureteral stent placement (09/2021) subsequent removal Status post excisional debridement 08/2021 left foot Status post laser lithotripsy of ureteral calculus (11/06/21) Family History Grandmother Heart disease Hypertension Grandfather Hypertension MATERNAL Diabetes Mother No problems noted. Father No problems noted. 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 Financial difficulty paying for basics: Very Hard Physical Exam Const: COMMON NORMALS: alert HENMT: COMMON NORMALS: normocephalic HEAD & SCALP: normocephalic MOUTH: Normal oral and palatal mucosa present Eye: GENERAL EYE: appearance normal, both eyes and all related structures Neck/C-Spine: COMMON NORMALS: full ROM Chest: COMMONS NORMALS: normal inspection of the chest Resp: COMMON NORMALS: clear to auscultation bilaterally EFFORT & INSPECTION: Yes tachypneic AUSCULTATION: clear to auscultation bilaterally Cardio: COMMON NORMALS: regular rate and regular rhythm RATE: regular rate RHYTHM: regular rhythm GI: COMMON NORMALS: Soft to palpation and non-tender PALPATION: Yes Soft to palpation Back/Pelvis: COMMON NORMALS: thoracic and lumbar spine normal to inspection Extremity: COMMON NORMALS: no pedal edema Neuro: SENSORIUM/ORIENTATION: Yes alert Skin: COMMON NORMALS: turgor normal GENERAL SKIN EXAM: turgor normal Course ED course: 0247, patient is more alert and responds to questions. Patient was able to state that he was in the hospital report his name. Patient did not know the year and cannot recall the president's name. Patient complained of some right hip pain but it is his normal pain. Vital Signs: Vital signs: Vital Signs Temperature 98.4 F 05/14/23 02:29 Pulse Rate 91 05/14/23 02:55 Respiratory Rate 28 H 05/14/23 02:55 Blood Pressure 130/75 05/14/23 02:55 Pulse Oximetry 94 05/14/23 02:55 Oxygen Delivery Me thod Room Air 05/14/23 02:55 MDM - Fever Medical Decision Making Patient was brought in by spouse for concerns of fever and altered mental status. On exam patient has clear lung sounds with tachypneic breathing. Abdomen soft nontender. Vital signs noted 99.7 temperature respirations in the 30s and blood pressure 136/104. No edema is noted in extremities. Abdomen soft nontender. Skin is dry and face is flushed. Differential diagnosis includes diabetic ketoacidosis, hyperosmolar acidosis, urinary sepsis, pneumonia, viral syndrome. CBC had a leukocytosis of 15,000, CMP had a 133 sodium, creatinine was stable at 1.7, glucose was high at 409. Chest x-ray was unremarkable. CT of the chest abdomen pelvis noted hydro ureteral nephrothis and bladder wall thickening. Urinalysis had increased white blood cells. Patient was treated for urinary tract infection and altered mental status. Reviewed exam with Dr. Nolan who agreed with plan. Patient was discussed with Dr Juarez who agreed to admit patient to inpatient services for treatment. Patient was started on antibiotics including vancomycin 1 g and Zosyn . Patient needs admission for repeat labs, antibiotic therapy, and reassessment of mental status. Lab Data 05/14/23 01:10 05/14/23 01:10 Radiology Impressions Chest X-Ray 05/14/23 00:45 IMPRESSION: No acute findings. Chest/Abdomen/Pelvis CT 05/14/23 00:55 IMPRESSION: Negative CT chest. IMPRESSION: 1. Bilateral hydroureteronephrosis new from comparison imaging. Consider UVJ strictures given the bladder wall thickening. Consider chronic bladder outlet obstruction. 2. Consider cystitis given the perivesical fat stranding changes. Head CT 05/14/23 00:55 IMPRESSION: 1. No evidence of acute intracranial hemorrhage, mass effect, or midline shift. 2. Please note that CT is insensitive to nonhemorrhagic strokes and MRI of the brain should be considered if there is clinical concern for acute cerebral infarction. Laboratory Results WBC 14.9 10^3/uL (4.0-10.0) H 05/14/23 01:10 RBC 3.92 10^6/uL (4.1-5.3) L 05/14/23 01:10 Hgb 12.0 g/dL (11.7-16.6) 05/14/23 01:10 Hct 35.3 % (42.0-52.0) L 05/14/23 01:10 MCV 90.1 fl (80-94) 05/14/23 01:10 MCH 30.6 pg (28.0-34.0) 05/14/23 01:10 MCHC 34.0 g/dL (30.0-36.0) 05/14/23 01:10 RDW 13.6 % (12.1-15.1) 05/14/23 01:10 Plt Count 361 10^3/cmm (130-400) 05/14/23 01:10 MPV 9.3 fL (7.4-10.4) 05/14/23 01:10 Neut % (Auto) 82.2 % 05/14/23 01:10 Lymph % (Auto) 6.0 % 05/14/23 01:10 [place] % (Auto) 7.2 % 05/14/23 01:10 Eos % (Auto) 3.0 % 05/14/23 01:10 Baso % (Auto) 0.7 % 05/14/23 01:10 Neut # (Auto) 12.25 10^3/uL (1.8-7.7) H 05/14/23 01:10 Lymph # (Auto) 0.9 10^3/uL (0.8-4.8) 05/14/23 01:10 [place] # (Auto) 1.1 10^3/uL (0.2-0.9) H 05/14/23 01:10 Eos # (Auto) 0.5 10^3/uL (0.0-0.8) 05/14/23 01:10 Baso # (Auto) 0.1 10^3/uL (0.0-0.1) 05/14/23 01:10 Nucleated RBC % (auto) 0 % 05/14/23 01:10 Nucleated RBCs # 0.0 /100WBC 05/14/23 01:10 Specimen Type Arterial 05/14/23 00:49 Sample Site Radial, right 05/14/23 00:49 ABG pH 7.43 (7.35-7.45) 05/14/23 00:49 ABG pCO2 32.7 mmHg (35-45) L 05/14/23 00:49 ABG pO2 63.4 mmHg (80.0-100.0) L 05/14/23 00:49 ABG HCO3 21.6 mmol/L (22-26) L 05/14/23 00:49 ABG Base Excess -2.1 mmol/L (-2.0-2.0) L 05/14/23 00:49 Stevenson Test Pos 05/14/23 00:49 Hematocrit 35.0 % (42-52) L 05/14/23 00:49 O2 Delivery Device Room air 08 00:49 FiO2 21.0 % 05/14/23 00:49 Hearing Consultant ID [place] 05/14/23 00:49 Sodium 133 mmol/L (136-145) L 05/14/23 01:10 Potassium 4.8 mmol/L (3.5-5.1) 05/14/23 01:10 Chloride 97 mmol/L (98-107) L 05/14/23 01:10 Carbon Dioxide 23 mmol/L (22-29) 05/14/23 01:10 Anion Gap 17.8 (5-19) 05/14/23 01:10 BUN 33 mg/dL (8-23) H 05/14/23 01:10 Creatinine 1.7 mg/dL (0.7-1.2) H 05/14/23 01:10 GFR Calculation Not Reportable 05/14/23 01:10 Glucose 409 mg/dL (65-115) H 05/14/23 01:10 Calculated Osmolality 301 mOsm/kg (285-295) H 05/14/23 01:10 Lactic Acid 2.2 mmol/L (0.5-2.2) 05/14/23 01:10 Calcium 9.2 mg/dL (8.5-10.5) 05/14/23 01:10 Total Bilirubin 0.2 mg/dL (0.15-1.2) 05/14/23 01:10 AST 13 U/L (0-40) 05/14/23 01:10 ALT 11 U/L (0-41) 05/14/23 01:10 Alkaline Phosphatase 114 U/L (40-130) 05/14/23 01:10 Troponin T Baseline 40 ng/L (0-15) H 05/14/23 01:10 Total Protein 7.2 g/dL (6.6-8.7) 05/14/23 01:10 Albumin 3.8 g/dL (3.5-5.2) 05/14/23 01:10 Globulin 3.4 g/dL (1.3-4.6) 05/14/23 01:10 Urine Color Yellow (Yellow) 05/14/23 01:46 Urine Appearance Sl hazy (CLEAR) A 05/14/23 01:46 Urine pH 6 (5-7) 05/14/23 01:46 Ur Specific Igo 1.010 (1.005-1.030) 05/14/23 01:46 Urine Protein 2+ (Negative) H 05/14/23 01:46 Urine Glucose (UA) 4+ (Normal) H 05/14/23 01:46 Urine Ketones Negative (Negative) 05/14/23 01:46 Urine Blood 3+ (Negative) H 05/14/23 01:46 Urine Nitrate Negative (Negative) 05/14/23 01:46 Urine Bilirubin Neg (Negative) 05/14/23 01:46 Urine Urobilinogen Neg mg/dL (Negative) 05/14/23 01:46 Ur Leukocyte Esterase 2+ (Negative) H 05/14/23 01:46 Urine RBC 10-15 /hpf (0-2) H 05/14/23 01:46 Urine WBC 15-25 /hpf (0-5) H 05/14/23 01:46 Ur Squamous Epith Cells None /hpf (0-5) 05/14/23 01:46 Amorphous Sediment Not Reportable 05/14/23 01:46 Urine Bacteria 3+ /hpf (NONE) H 05/14/23 01:46 Serum Ketones Negative (Negative) 05/14/23 01:10 EKG Data EKG 1: EKG interpretation date: 05/14/23 EKG interpretation time: 00:50 Prior EKG tracings: not available for review Interpretation: EKG shows a sinus rhythm with a regular rate of [address] elevation or ectopy otherwise as noted. Computer generated interpretation: Sinus rhythm, right bundle branch block, compared to EKG of 02-03-2023 first-degree AV block is no longer present. EKG 2: EKG interpretation date: 05/14/23 EKG interpretation time: 02:41 Prior EKG tracings: available for review Interpretation: SinusEKG shows him with a first-degree AV block, regular rate at 92 bpm. No ectopy or ST elevation is noted at this time. Computer generated interpretation: Sinus rhythm first-degree AV block, right bundle branch block, abnormal EKG, unconfirmed report. 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
--- NOTE | 2023-05-14 00:55 | CTR_ITS ---
PROCEDURE INFORMATION: Exam: CT Head Without Contrast Exam date and time: 05/14/2023 2:16 AM Age: 73 years old Clinical indication: Altered mental status/memory loss; Other: Unsure; Additional info: AMS, fever TECHNIQUE: Imaging protocol: Computed tomography of the head without contrast. Radiation optimization: All CT scans at this facility use at least one of these dose optimization techniques: automated exposure control; mA and/or kV adjustment per patient size (includes targeted exams where dose is matched to clinical indication); or iterative reconstruction. REPORTING DATA: Count of CT and Cardiac NM exams in prior 12 months: This patient has received 3 known CTs and 0 known cardiac nuclear medicine studies in the 12 months prior to the current study. COMPARISON: CT head wo con* [id number] 02/03/2023 5:21 PM RADIATION DOSE METRICS: Total DLP (mGy-cm): 1295.88 FINDINGS: Brain: No acute intra- or extra axial fluid collections are identified. The basal cisterns are patent. No mass effect or midline shift is seen. The lazar-white matter differentiation is normal. Periventricular hypoattenuation are nonspecific but likely the sequela of chronic small vessel ischemic disease. Cerebral ventricles: Mild cerebral volume loss and ex vacuo dilation of the ventricles and mild dilation of the subarachnoid spaces. Mild cerebellar volume loss is also noted. Paranasal sinuses: Impacted tooth within the anterior nasal septum. The nasal septum is deviated to the left with a septal spur in contact with the medial wall of the left maxillary sinus. There is mild paranasal sinus disease. Mastoid air cells: The mastoid air cells appear grossly clear. Orbital cavities: The patient is status post cataract extraction.. Bones/joints: No acute calvarial fracture is identified. Soft tissues: No soft tissue abnormalities identified. Vasculature: There are atherosclerotic calcifications of the carotid siphons and the V4 segments of the vertebral arteries. CT/CT head wo con* [id number] IMPRESSION: 1. No evidence of acute intracranial hemorrhage, mass effect, or midline shift. 2. Please note that CT is insensitive to nonhemorrhagic strokes and MRI of the brain should be considered if there is clinical concern for acute cerebral infarction.
--- NOTE | 2023-05-14 00:55 | CTR_ITS ---
PROCEDURE INFORMATION: Exam: CT Chest Without Contrast; Diagnostic Exam date and time: 05/14/2023 2:17 AM Age: 73 years old Clinical indication: Fever; Other: AMS; Additional info: AMS, fever TECHNIQUE: Imaging protocol: Diagnostic computed tomography of the chest without contrast. Radiation optimization: All CT scans at this facility use at least one of these dose optimization techniques: automated exposure control; mA and/or kV adjustment per patient size (includes targeted exams where dose is matched to clinical indication); or iterative reconstruction. REPORTING DATA: Count of CT and Cardiac NM exams in prior 12 months: This patient has received 3 known CTs and 0 known cardiac nuclear medicine studies in the 12 months prior to the current study. COMPARISON: CT chest abdpel w/*[id number] 10/02/2021 10:51 AM RADIATION DOSE METRICS: Total DLP (mGy-cm): 0.01 FINDINGS: Thyroid: Unremarkable thyroid lobes. Lungs: Unremarkable. No consolidation. No masses. Pleural spaces: Unremarkable. No pneumothorax. No pleural effusion. Heart: Unremarkable. No cardiomegaly. No pericardial effusion. Coronary arteries: Large volume coronary artery calcifications. Mediastinal space: Unremarkable thoracic esophagus. Lymph nodes: Unremarkable. No enlarged lymph nodes. Vasculature: Unremarkable. No aortic aneurysm. Bones/joints: Unremarkable. No acute fracture. Soft tissues: Unremarkable. PROCEDURE INFORMATION: Exam: CT Abdomen And Pelvis Without Contrast Exam date and time: 05/14/2023 2:17 AM Age: 73 years old Clinical indication: Fever; Other: AMS; Additional info: AMS, fever TECHNIQUE: Imaging protocol: Computed tomography of the abdomen and pelvis without contrast. Radiation optimization: All CT scans at this facility use at least one of these dose optimization techniques: automated exposure control; mA and/or kV adjustment per patient size (includes targeted exams where dose is matched to clinical indication); or iterative reconstruction. REPORTING DATA: Count of CT and Cardiac NM exams in prior 12 months: This patient has received 3 known CTs and 0 known cardiac nuclear medicine studies in the 12 months prior to the current study. COMPARISON: 1. CT abdomen pelvis w con* [id number] 11/25/2022 2:[address] kidney stone [id number] 12/06/2021 3:17 PM RADIATION DOSE METRICS: Total DLP (mGy-cm): 1299.78 FINDINGS: Liver: Normal. No mass. Gallbladder and bile ducts: Normal. No calcified stones. No ductal dilation. Pancreas: Normal. No ductal dilation. Spleen: Normal. No splenomegaly. Adrenal glands: Normal. No mass. Kidneys and ureters: Small nonobstructing right renal lower pole stones. Moderate severity diffuse bilateral hydroureteronephrosis. Stomach and bowel: Diverticulosis coli. Negative for focal bowel wall inflammatory changes. Negative for bowel obstruction. Negative for bowel perforation. Appendix: Normal appendix. Intraperitoneal space: Unremarkable. No free air. No significant fluid collection. Vasculature: Unremarkable. No abdominal aortic aneurysm. Lymph nodes: Unremarkable. No enlarged lymph nodes. Urinary bladder: Diffuse bladder wall thickening. Perivesical fat stranding. Reproductive: Mild severity prostatomegaly. Bones/joints: The lumbar spine demonstrates marked discogenic and apophyseal joint degenerative changes at multiple levels. Negative for acute lumbar spine fracture. Negative for acute pelvic fracture. Soft tissues: Unremarkable. CT/CT chest abdpel [id number] IMPRESSION: Negative CT chest. IMPRESSION: 1. Bilateral hydroureteronephrosis new from comparison imaging. Consider UVJ strictures given the bladder wall thickening. Consider chronic bladder outlet obstruction. 2. Consider cystitis given the perivesical fat stranding changes.
[2023-05-14 01:04] LABS: ABG PCO2 32.7 mmHg (35-45); ABG PH Result 7.43 (7.35-7.45); Base Excess ABG -2.1 mmol/L (-2.0-2.0); Blood Gas Allen Test Pos; Blood Gas Operator Identificat MONRO; Blood Gas Sample Site Radial, right; Blood Gas Sample Type Arterial; HCO3 ABG 21.6 mmol/L (22-26); Oxygen Device ROOM AIR; PO2 ABG 63.4 mmHg (80.0-100.0)
[2023-05-14 01:26] LABS: Basophils # 0.1 10^3/uL (0.0-0.1); Basophils % 0.7 %; Eosinophils # 0.5 10^3/uL (0.0-0.8); Hematocrit 35.3 % (42.0-52.0); Lymphocytes # 0.9 10^3/uL (0.8-4.8); Mean Corpuscular Hemoglobin 30.6 pg (28.0-34.0); Mean Corpuscular Volume 90.1 fl (80-94); Mean Platelet Volume 9.3 fL (7.4-10.4); Monocytes # 1.1 10^3/uL (0.2-0.9); Monocytes % 7.2 %; Neutrophils # 12.25 10^3/uL (1.8-7.7); Neutrophils % 82.2 %; Nucleated Red Blood Cells % 0 %; Platelet Count 361 10^3/cmm (130-400); Red Blood Count 3.92 10^6/uL (4.1-5.3); Red Cell Distribution Width 13.6 % (12.1-15.1); White Blood Count 14.9 10^3/uL (4.0-10.0)
[2023-05-14 01:41] LABS: Ketone (Acetest) Serum Negative (Negative)
[2023-05-14] MEDS: acetaminophen 1,000 MG/100 ML PIGGYBACK 400 MG IV (01:47)
[2023-05-14] MEDS: sodium chloride 0.9% 500 ML 999 ML IV (01:47)
[2023-05-14 01:48] LABS: Troponin(5th) Baseline 40 ng/L (0-15)
[2023-05-14 01:49] LABS: Alanine Aminotransferase 11 U/L (0-41); Albumin Level 3.8 g/dL (3.5-5.2); Alkaline Phosphatase 114 U/L (40-130); Anion Gap 17.8 (5-19); Aspartate Amino Transferase 13 U/L (0-40); Blood Urea Nitrogen 33 mg/dL (8-23); Calcium 9.2 mg/dL (8.5-10.5); Carbon Dioxide 23 mmol/L (22-29); Chloride 97 mmol/L (98-107); Globulin 3.4 g/dL (1.3-4.6); Glucose 409 mg/dL (65-115); Osmolality Calculated 301 mOsm/kg (285-295); Potassium 4.8 mmol/L (3.5-5.1); Sodium 133 mmol/L (136-145); Total Bilirubin 0.2 mg/dL (0.15-1.2); Total Protein 7.2 g/dL (6.6-8.7)
[2023-05-14 01:50] LABS: Lactic Sepsis W/Reflex 2.2 mmol/L (0.5-2.2)
[2023-05-14] MEDS: piperacillin-tazobactam 3.375 GM in sodium chloride 0.9% (plus) 50 ML IV ×4 (02:09→22:45)
[2023-05-14 02:24] LABS: Bilirubin Urine Neg (Negative); Blood Urine 3+ (Negative); Glucose Urine UA 4+ (Normal); Ketones Urine Negative (Negative); Leukocyte Esterase Urine 2+ (Negative); Nitrate Urine Negative (Negative); Protein Urine 2+ (Negative); Urine Appearance SL Hazy (CLEAR); Urine Color Yellow (Yellow); Urobilinogen Urine Neg (Negative); pH Urine 6 (5-7)
[2023-05-14 02:25] LABS: Add Urine Culture? Yes; Add Urine Microscopic? YES; Bacteria Urine 3+ /hpf; WBC Urine 15-25 /hpf (0-5)
--- NOTE | 2023-05-14 02:34 | ECG_ITS ---
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 Measurements Intervals [place] Rate: 92 P: 100 MS: 211 QRS: 87 QRSD: 134 T: 67 QT: 370 QTc: 458 Interpretive Statements SINUS RHYTHM WITH FIRST DEGREE AV BLOCK RIGHT BUNDLE BRANCH BLOCK [120+ ms QRS DURATION, UPRIGHT V1, 40+ ms S IN I/aVL/V4/V5/V6] Compared to ECG 05/14/2023 00:40:22 First degree AV block now present Electronically Signed On 05-15-2023 9:31:40 CDT by Aleks Narvaez M.D. [id number]
[2023-05-14] MEDS: vancomycin 1,000 MG in sodium chloride 0.9% 250 ML 250 MG IV (02:39)
[2023-05-14 02:56] LABS: C Reactive Protein 63.2 mg/L (0.0-4.9)
[2023-05-14 03:08] LABS: Reflex Lactate Order REFLEX LACTIC ORDERD
[2023-05-14 03:17] LABS: Erythrocyte Sedimentation Rate 23 mm/hr (0-10)
[2023-05-14 03:51] LABS: Adenovirus Not Detected (NOT DETECT); Chlamydia Pneumoniae Not Detected (NOT DETECT); Coronavirus 229E,HKU1,NL63,OC4 Not Detected (NOT DETECT); Human Metapneumovirus Not Detected (NOT DETECT); Human Rhinovirus/Enterovirus Not Detected (NOT DETECT); Influenza A Not Detected (NOT DETECT); Influenza A H1 Not Detected (NOT DETECT); Influenza A H1-2009 Not Detected (NOT DETECT); Influenza A H3 Not Detected (NOT DETECT); Influenza B Not Detected (NOT DETECT); Mycoplasma Pneumoniae Not Detected (NOT DETECT); Parainfluenza Virus Type 1 Not Detected (NOT DETECT); Parainfluenza Virus Type 2 Not Detected (NOT DETECT); Parainfluenza Virus Type 3 Not Detected (NOT DETECT); Parainfluenza Virus Type 4 Not Detected (NOT DETECT); Respiratory Syncytial Virus A Not Detected (NOT DETECT); Respiratory Syncytial Virus B Not Detected (NOT DETECT); SARS-COV-2 Not Detected (NOT DETECT)
[2023-05-14 05:13] LABS: Glucose Point of Care 419 mg/dL (70-110)
[2023-05-14 06:21] LABS: Glucose Point of Care 366 mg/dL (70-110)
[2023-05-14 06:26] LABS: Lactic Acid level (Lactate) 1.6 mmol/L (0.5-2.2)
--- NOTE | 2023-05-14 06:34 | ECG_ITS ---
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 Measurements Intervals [place] Rate: 87 P: 92 HI: 213 QRS: 69 QRSD: 132 T: 58 QT: 378 QTc: 456 Interpretive Statements SINUS RHYTHM WITH FIRST DEGREE AV BLOCK WITH OCCASIONAL VENTRICULAR PREMATURE COMPLEXES RIGHT BUNDLE BRANCH BLOCK [120+ ms QRS DURATION, UPRIGHT V1, 40+ ms S IN I/aVL/V4/V5/V6] Compared to ECG 05/14/2023 02:35:11 Ventricular premature complex(es) now present Electronically Signed On 05-15-2023 9:31:34 CDT by Aleks Narvaez M.D. [id number]
--- NOTE | 2023-05-14 06:36 | P.HP_ITS ---
Providers/Chief Complaint Admitting Physician: Carol Juarez MD Primary Care Provider: Trisha Urena MD Chief Complaint: high bp, fever History of Present Illness Raphael Deal is a 73 year old male with history of type 2 diabetes, BPH, previous history of ureteral stent removed by Dr. Paul, presented to hospital with chief complaint of fever and altered mental status. Patient lives with his daughter. Patient also has history of A-fib not on anticoagulation for hematuria in the past. Patient at the time of evaluation is awake and alert however not able to recall events at home. As per the ER physician daughter sent him here when he was concern for confusion with fever of 101 despite antifungal and levofloxacin for last 20 days for recurrent UTIs. In the ER his white count is 14, he is afebrile no signs of sepsis however there is bilateral hydronephrosis with concern for ureterovesical junction stricture creatinine 1.7 Patient is awake and alert without any signs of stroke He is complaining of burning sensation in his feet asking for ibuprofen Review of Systems Narrative: Endorsing fatigue and lethargy Endorsing fever No active chest pain Loose stools today Burning sensation in feet No abdominal pain No chest pain No shortness of breath No weakness of extremities No skin rash Swelling of extremities positive No vision change No dysuria Medications/Allergies Home Medications Medication Instructions Recorded Confirmed Last Taken Type omega-3 fatty acids 1,000 mg 1,000 mg PO BID 11/07/19 04/21/23 02/03/23 History capsule (Fish Oil Concentrate) fluticasone propionate 50 2 spray intranasal DAILY PRN 05/07/20 04/21/23 Unknown History mcg/actuation nasal Allergy Symptoms spray,suspension (Flonase Allergy Relief) gabapentin 800 mg tablet 800 mg PO TID 05/07/20 04/21/23 02/03/23 History sotalol 160 mg tablet 80 mg PO BID 05/07/20 04/21/23 02/03/23 History water aerobics #1 ea 05/09/21 04/21/23 Unknown Rx albuterol sulfate 90 mcg/actuation 2 puff inhalation Q4H PRN 10/03/21 04/21/23 Unknown History aerosol inhaler (ProAir HFA) Shortness Of Breath fluticasone 100 mcg-salmeterol 50 1 inh inhalation BID 10/03/21 04/21/2311/25/2 3 History mcg/dose blistr powdr for inhalation (Zaidaxela Inhub) rosuvastatin 40 mg tablet 20 mg PO BEDTIME 12/04/21 04/21/23 02/02/23 History tamsulosin 0.4 mg capsule 0.4 mg PO BEDTIME 12/04/21 04/21/23 02/02/23 History blood-glucose meter,continuous #1 ea 12/18/21 04/21/23 Unknown Rx (Dexcom G6 Automatic Glove Turner And Former) furosemide 20 mg tablet 20 mg PO BID 01/22/22 04/21/23 02/03/23 History insulin aspart U-100 100 unit/mL 35 unit (0.35 mL) .Route TID #30 mL 03/25/22 04/21/23 02/03/23 Rx (3 mL) subcutaneous pen (Novolog FlexPen U-100 Insulin aspart) cholecalciferol (vitamin D3) 25 25 mcg PO DAILY 11/25/22 04/21/23 02/03/23 History mcg (1,000 unit) tablet (Vitamin D3) digoxin 250 mcg (0.25 mg) tablet 250 mcg PO DAILY 11/25/22 04/21/23 02/03/23 History lisinopril 5 mg tablet 2.5 mg PO DAILY 11/25/22 04/21/23 02/03/23 History metformin 500 mg tablet,extended 500 mg PO BID 11/25/22 04/21/23 02/03/23 History release 24 hr methocarbamol 750 mg tablet 750 mg PO QID PRN Muscle Spasm 11/25/22 04/21/23 Unknown History blood-glucose transmitter (Dexcom #1 ea 12/04/22 04/21/23 Unknown Rx G6 Transmitter device) phenazopyridine 100 mg tablet 100 mg PO BID PRN Pain 01/28/23 04/21/23 02/03/23 History coenzyme Q10 10 mg capsule 10 mg PO DAILY 02/03/23 04/21/23 02/03/23 History cranberry 500 mg capsule 500 mg PO DAILY 02/03/23 04/21/23 02/03/23 History cyanocobalamin (vitamin B-12) 1,000 mcg IM Q30D 02/03/23 04/21/23 Unknown H istory 1,000 mcg/mL injection solution insulin glargine 100 unit/mL (3 80 unit SUBCUT BEDTIME 02/03/23 04/21/23 02/02/23 History mL) subcutaneous pen (Lantus Solostar U-100 Insulin) multivitamin 1 tab PO DAILY 02/03/23 04/21/23 02/03/23 History nut.tx.gluc.intol,lac-free,soy 1 ea PO DAILY 02/03/23 04/21/23 Unknown History (Glucerna oral liquid) fluconazole 100 mg tablet 100 mg PO DAILY 21 days #21 tabs 02/12/23 04/21/23 Unknown Rx krill oil 500 mg capsule mg PO DAILY 03/10/23 04/21/23 Unknown History methenamine hippurate 1 gram tablet 1 g PO BID Recurrent UTI #60 tabs 03/10/23 04/21/23 Unknown Rx levofloxacin 500 mg tablet 500 mg PO DAILY #20 tabs 03/26/23 04/21/23 Unknown Rx galantamine 4 mg tablet See Rx Instructions .Route 04/14/23 04/21/23 Unknown Rx .COMPLEX #90 tabs blood-glucose sensor (Dexcom G6 #9 ea 05/01/23 Unknown Rx Sensor device) Allergies Allergy/AdvReac Type Severity Reaction Status Date / Time No Known Allergies Allergy Verified 05/14/23 00:44 PFSH Acute PFSH: Medical History (Updated 05/14/23 @ 07:03 by Carol Juarez MD) Anemia Atrial fibrillation BPH loc w urin obs/LUTS Cervicalgia of giprfuim-jnrkusu-idmcv region Chronic anticoagulation Taken off Xarelto secondary to hematuria Diabetes mellitus, type II Diabetic foot ulcer 08/2021 - treated with I&D, antibiotics and wound care clinic management 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 mellitus H/O prostate cancer Hematuria due to acute cystitis History of cardiovascular stress test 05/2021 normal EKG response, perfusion study without findings of ischemia History of Doppler ultrasound 08/2021 venous no DVT BLE 08/2021 arterial patent vessels, left posterior tibial may be less than 60% stenosis, left dorsalis pedis not visualized History of echocardiogram 05/2021 EF 65% History of electromyography 01/23 Interpretation: The study provides electrodiagnostic evidence for an axonal sensorimotor polyneuropathy based on small or absent CMAPs and SNAPs with denervation seen distally on EMG. The study is limited for evaluation of lumbar radiculopathy related to the patient's anticoagulated state. History of sleep study 02/22 limited sleep, no apnea noted but did have nocturnal hypoxemia, recommended to use nocturnal oxygen HTN (hypertension) previously on treatment for high blood pressure Intermittent self-catheterization of bladder due to urinary retention Left ureteral calculus Lumbar stenosis L2/3, L3/4, L4/L5, with radiculopathy right lower extremity Lumbar stenosis with neurogenic claudication Obstructive pyelonephritis 09/2021 required ureteral stent placement Obstructive sleep apnea Refuses CPAP SARS-CoV-2 positive positive test 11/17/2021 symptoms weakness, hypoglycemia, altered mental status and low grade fever Surgical History H/O esophagogastroduodenoscopy (10/30/21) 10/2021 pedunculated polyps removed from first portion of duodenum, otherwise normal History of back surgery History of colonoscopy (10/30/21) 11/2021 diverticulosis of sigmoid colon and internal hemorrhoids, sessile polyps removed History of laminectomy 03/25 bilateral with partial facetectomies at L2-3, L3-4, L4-[address] Smith History of pilonidal cyst Other postprocedural status history of radiofrequency ablation for back pain x 2 S/P appendectomy S/P tonsillectomy S/P ureteral stent placement (09/2021) subsequent removal Status post excisional debridement 08/2021 left foot Status post laser lithotripsy of ureteral calculus (11/06/21) Family History Grandmother Heart disease Hypertension Grandfather Hypertension MATERNAL Diabetes Mother No problems noted. Father No problems noted. 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 Financial difficulty paying for basics: Very Hard Vitals/I&O/Wt Last Vital Signs Temp 98.1 F 05/14/23 04:02 Pulse 87 05/14/23 04:02 Resp 16 05/14/23 04:02 BP 130/76 05/14/23 04:02 Pulse Ox 92 05/14/23 04:02 O2 Del Method Room Air 05/14/23 04:02 05/13/23 05/13/23 05/14/23 14:59 22:59 06:59 Intake Total 900 / 900 Balance 900 / 900 Weight last 48 hrs Weight 94.801 kg Physical Exam Narrative: Patient has signs of fluid overload Currently on room air GCS 15 S1, S2 regular Abdomen soft Pleasant and cooperative Nonfocal neuroexam Lower extremity edema, pedal edema Appears stated age Patient is not confused AOx3 Data 05/14/23 01:10 05/14/23 01:10 Micro: Microbiology 05/14/23 01:10 Blood Culture - Preliminary Blood SPECIMEN COLLECTED 05/14/23 01:00 Blood Culture - Preliminary Blood SPECIMEN COLLECTED A&P Assessment and plan (1) Atrial fibrillation: (2) BPH loc w urin obs/LUTS: (3) Chronic anticoagulation: (4) Diabetes mellitus, type II: Qualifiers: 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 mellitus filler leaf cutter long insulin use: with filler leaf cutter long use Diabetes mellitus complication status: with neurologic complications Diabetes mellitus complication detail: with polyneuropathy Qualified Code(s): E11.42 - Type 2 diabetes mellitus with diabetic polyneuropathy; Z79.4 - [employer] (current) use of insulin (5) Intermittent self-catheterization of bladder: (6) Gait instability: (7) 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 mellitus: (8) AMS (altered mental status): Qualifiers: Altered mental status type: somnolence Qualified Code(s): R40.0 - Somnolence (9) Bladder spasms: (10) Yeast UTI: (11) RAI (acute kidney injury): (12) Acute UTI: (13) Chronic cystitis: (14) Mild cognitive impairment with memory loss: (15) Bacteriuria: (16) Alzheimer disease: Plan Recurrent UTIs Chronic suppressive therapy Levaquin for chronic cystitis Patient was encouraged for self cath at home by Dr. Paul Previous urine culture showed cryptococcus, Pseudomonas, Patient has been taking fluconazole and levofloxacin for last [address] Paul in the past patient stating that he has not seen any new urologist I will put him on Zosyn, he has received enough days of antifungal outpatient He has unusual growth of cryptococcus neoformans in his urine, at the time of my evaluation I am not seeing any signs of stroke or meningitis my concern for cryptococcal dissemination is low at this point Patient is not septic, afebrile however noticed leukocytosis Blood cultures obtained Bilateral hydronephrosis which is new, in case of further worsening he may need urology inpatient RAI related to worsening bilateral hydronephrosis and ibuprofen, hold lisinopril patient may need urology inpatient in case of further worsening persistent fever or worsening of kidney function A-fib without RVR Patient takes digoxin and sotalol Considering worsening of kidney function I will hold digoxin continue sotalol Xarelto was held secondary to hematuria hemoglobin is stable I will put him on therapeutic Lovenox once a day regimen Type 2 diabetes: Neuropathy: I will slightly reduce the dose of gabapentin due to RAI Continue Lantus 60 units patient takes glargine 80 units at home I will keep him on high intensity sliding scale Patient seems to have Alzheimer's, experiences hallucinations as well Patient lives with his daughter at home, does have home health Full code Previous history of ureteral stent Attestations Medical Necessity Statement*: More than 2 midnights anticipated Diagnoses Atrial fibrillation I48.91 BPH loc w urin obs/LUTS N40.1 Chronic anticoagulation Z79.01 Diabetes mellitus, type II E11.42; Z79.4 Diabetes mellitus longterm insulin use: with longterm use Diabetes mellitus complication status: with neurologic complications Diabetes mellitus complication detail: with polyneuropathy Intermittent self-catheterization of bladder Z78.9 Gait instability R26.81 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 mellitus E11.40 AMS (altered mental status) R40.0 Altered mental status type: somnolence Bladder spasms N32.89 Yeast UTI B37.49 RAI (acute kidney injury) N17.9 Acute UTI N39.0 Chronic cystitis N30.20 Mild cognitive impairment with memory loss G31.84 Bacteriuria R82.71 Alzheimer disease G30.9; F02.80
--- NOTE | 2023-05-14 06:43 | PC.NURSE ---
Checked pts glucose at approx 0630 and it was 366. No orders since tx to floor from ER. Called Larry and made aware; no new orders at this time.
[2023-05-14 07:02] LABS: D Dimer 0.76 ug/mIFEU (0-0.59)
[2023-05-14] MEDS: lactated ringers 500 ML 999 ML IV (07:38)
[2023-05-14] MEDS: gabapentin 300 mg Capsule 600 MG PO ×4 (07:42→21:22)
[2023-05-14] MEDS: enoxaparin 100 mg/mL Syringe 90 MG SUBCUT ×2 (07:42→17:40)
--- NOTE | 2023-05-14 08:04 | PC.PHAR ---
FAXED [facility] AT 7:40 AM FOR MED LIST
[2023-05-14 08:06] LABS: Troponin 5 6HR 38.98 ng/L (0-15)
[2023-05-14 08:16] LABS: Troponin 5 6HR Delta -1.02 ng/L (0-12)
[2023-05-14] MEDS: sennosides-docusate Tablet 1 TAB PO (08:19)
[2023-05-14] MEDS: insulin lispro 100 unit/1 mL SUBCUT ×4 (08:19→21:22)
[2023-05-14] MEDS: sotalol 80 mg Tablet PO ×2 (08:19→17:40)
[2023-05-14] MEDS: sodium chloride 0.9% 1,000 ML 75 ML IV ×2 (08:19→21:20)
[2023-05-14] MEDS: morphine IR 15 mg Tablet PO (08:34)
[2023-05-14 10:53] LABS: Iron 20 ug/dL (59-158); Percent Saturation 6.6 % (20-50); Total Iron Binding Capacity 302 mcg/dl; Unsaturated Iron Binding 282 ug/dL (112-347)
[2023-05-14 11:04] LABS: HIV 1 & 2 Antibody Non-Reactive (Non-Reactiv); HIV 1 & 2 Antigen Non-Reactive (Non-Reactiv)
[2023-05-14 11:08] LABS: Vitamin B12 288 pg/mL (232-1245)
[2023-05-14 11:42] LABS: Glucose Point of Care 238 mg/dL (70-110)
--- NOTE | 2023-05-14 11:54 | W.PM.EVENTAC ---
Event Note Event Note: Admitted overnight. H&P and labs appreciated. Admitted with complaint of nausea and vomiting along with difficulty in urination and symptoms of dysuria ongoing for last 1 week with fevers for last 3 days while patient was taking outpatient Levaquin and fluconazole. In the ER found to have bilateral hydroureteronephrosis with acute kidney injury and creatinine of 1.7. CT abdomen pelvis concerning for UVJ stricture versus bladder outlet obstruction. Villanueva catheter placed. Minimal urine output since placement of Villanueva catheterization. Old urine cultures appreciated for a possible Enterobacter VRE, Pseudomonas, Carolyn and cryptococcus neoformans one-time. Plan: Questionable cryptococcus seen in the past. Cannot rule out misidentification of Carolyn. Patient not showing symptoms of disseminated cryptococcus for now. Check HIV, cryptococcus antigen. Continue Villanueva catheterization for now. Check BMP daily. Will plan for KUB ultrasound within next 48 hours for further monitoring of hydroureteronephrosis. If BMP does not improve within next 48 hours or does not improve on ultrasound patient would most likely need a urology consultation for possible stricture workup with cystoscopy. Follow-up blood culture and urine culture. Patient having on and off hematuria ongoing for last couple of months. Patient has not taking his Xarelto for last 2 weeks and now his hematuria has resolved. Discussed in detail that unfortunately patient is always at a risk of hematuria given his friable urinary bladder in setting of chronic cystitis. Discussed risk of stroke given history of A-fib. After lengthy discussion patient wants to continue anticoagulation for now. For now continue with Lovenox twice daily started on admission. Moderate MDM (Prolonged discussion regarding anticoagulation, etiology of presentation requiring Villanueva catheterization and antibiotics.) includes number and complexity of problems actively addressed during encounter, amount and/or complexity of data reviewed/ordered [ previous or external records, resulted lab(s)/test(s), ordered lab(s)/test(s), independent test interpretation and other healthcare professional discussion] and described risk of complication, morbidity or mortality of management as documented
[2023-05-14] MEDS: cyanocobalamin 1,000 mcg/mL SDV 1000 MCG IM (12:20)
[2023-05-14] MEDS: acetaminophen 500 mg Tablet PO (15:37)
[2023-05-14 16:39] LABS: Glucose Point of Care 225 mg/dL (70-110)
[2023-05-14 20:52] LABS: Glucose Point of Care 236 mg/dL (70-110)
[2023-05-14] MEDS: insulin glargine 100 units/1 mL 60 UNIT SUBCUT (21:23)
[2023-05-15] VITALS (9 sets, daily range): BP systolic 122–167; BP diastolic 71–90; PULSE 71–78; RESP 16–20; TEMP 36.7–37.3; O2SAT 93–98
[2023-05-15 05:00] LABS: Basophils # 0.1 10^3/uL (0.0-0.1); Basophils % 0.6 %; Eosinophils # 0.4 10^3/uL (0.0-0.8); Eosinophils % 2.6 %; Hematocrit 31.5 % (42.0-52.0); Lymphocytes # 2.8 10^3/uL (0.8-4.8); Lymphocytes % 18.3 %; Mean Corpuscular HGB Conc 31.7 g/dL (30.0-36.0); Mean Corpuscular Hemoglobin 29.5 pg (28.0-34.0); Mean Corpuscular Volume 92.9 fl (80-94); Mean Platelet Volume 9.4 fL (7.4-10.4); Monocytes # 1.4 10^3/uL (0.2-0.9); Monocytes % 9.4 %; Neutrophils # 10.38 10^3/uL (1.8-7.7); Neutrophils % 68.4 %; Nucleated Red Blood Cells % 0 %; Platelet Count 304 10^3/cmm (130-400); Red Blood Count 3.39 10^6/uL (4.1-5.3); Red Cell Distribution Width 13.7 % (12.1-15.1); White Blood Count 15.2 10^3/uL (4.0-10.0)
[2023-05-15 05:09] LABS: Estmated Average Glucose 240
[2023-05-15 05:15] LABS: Alanine Aminotransferase 11 U/L (0-41); Albumin Level 3.3 g/dL (3.5-5.2); Alkaline Phosphatase 74 U/L (40-130); Anion Gap 15.5 (5-19); Aspartate Amino Transferase 29 U/L (0-40); Blood Urea Nitrogen 22 mg/dL (8-23); Calcium 8.5 mg/dL (8.5-10.5); Carbon Dioxide 25 mmol/L (22-29); Chloride 104 mmol/L (98-107); Globulin 2.3 g/dL (1.3-4.6); Glucose 217 mg/dL (65-115); Osmolality Calculated 300 mOsm/kg (285-295); Potassium 4.5 mmol/L (3.5-5.1); Sodium 140 mmol/L (136-145); Total Bilirubin 0.3 mg/dL (0.15-1.2); Total Protein 5.6 g/dL (6.6-8.7)
[2023-05-15 05:17] LABS: Chol HDL Ratio 4.55 mg/dL (1.0-5.00); Cholesterol 141 mg/dL (0-200); HDL Cholesterol 31 mg/dL (60-100); LDL Cholesterol Calculated 34 mg/dL (50-129); Triglycerides 382 mg/dL (0-150); VLDL Cholestrol Calculation 76 mg/dL (0-30)
[2023-05-15 05:20] LABS: Magnesium 1.7 mg/dL (1.7-2.3); Phosphorus 3.2 mg/dL (2.5-4.5)
[2023-05-15 05:33] LABS: Folate Level 13.5 ng/mL (4.5-32.2)
[2023-05-15] MEDS: enoxaparin 100 mg/mL Syringe 90 MG SUBCUT ×2 (06:21→17:22)
[2023-05-15] MEDS: piperacillin-tazobactam 3.375 GM in sodium chloride 0.9% (plus) 50 ML IV (06:23)
[2023-05-15 06:46] LABS: Glucose Point of Care 209 mg/dL (70-110)
[2023-05-15] MEDS: insulin lispro 100 unit/1 mL SUBCUT ×4 (08:39→22:01)
[2023-05-15] MEDS: gabapentin 300 mg Capsule 600 MG PO ×3 (08:40→22:02)
[2023-05-15] MEDS: cyanocobalamin 1,000 mcg/mL SDV 1000 MCG IM (08:40)
[2023-05-15] MEDS: sennosides-docusate Tablet 1 TAB PO (08:40)
[2023-05-15] MEDS: sotalol 80 mg Tablet PO ×2 (08:40→17:22)
[2023-05-15] MEDS: sodium chloride 0.9% 1,000 ML 75 ML IV (10:38)
[2023-05-15] MEDS: meropenem 1,000 MG in sodium chloride 0.9% (plus) 50 ML 100 MG IV ×2 (10:59→18:58)
[2023-05-15 11:56] LABS: Glucose Point of Care 184 mg/dL (70-110)
--- NOTE | 2023-05-15 14:56 | P.PN_ITS ---
Subjective Subjective: No acute events overnight. Patient clinically improving. Today morning sitting up in chair. More awake and alert. Denies any nausea vomiting, headache. Blood work consistent with worsening of leukocytosis mildly to 15.2, hemoglobin down to 10 from 12, no hematuria, BMP showing sodium of 140, creatinine improving to 1.3, A1c of 10, CRP worsening to 221. Vitals/I&O/Wt Last Vital Signs Temp 98.6 F 05/15/23 11:13 Pulse 74 05/15/23 11:13 Resp 18 05/15/23 11:13 BP 153/83 05/15/23 11:13 Pulse Ox 94 05/15/23 11:13 O2 Del Method Room Air 05/15/23 11:13 05/14/23 05/15/23 05/15/23 22:59 06:59 14:59 Intake Total 1026.25 / 1576.25 50 / 1626.25 1580 / 1580 Output Total 1125 / 1125 650 / 1775 400 / 400 Balance -98.75 / 451.25 -600 / -148.75 1180 / 1180 Weight last 48 hrs Weight 94.801 kg Physical Exam Narrative: General: No acute distress, AO x3, mildly anemic HEENT: PERRLA, pupils bilaterally equal and reactive Chest: Normal vesicular breath sounds, no added sounds, equal good air entry bilaterally CVS: S1-S2 regular, no murmurs, no tachycardia, no gallops, no rubs Abdomen: Soft, nontender, no organomegaly, bowel sounds present Neuro: No focal deficits, no facial deformity, AO x3, power 5/5 in all limbs Urinary Catheter Management: Villanueva: Cath Placed During This Visit: yes Reason for Continuing Indwelling Catheter: Acute Urinary Retention or Obstruction Urinary Catheter Date of Insertion: 05/14/23 Urinary Catheter Time of Insertion: 09:00 Data 05/15/23 04:36 05/15/23 04:36 Micro: Microbiology 05/14/23 18:12 MRSA Culture - Final Nose 05/14/23 01:10 Blood Culture - Preliminary Blood NEGATIVE TO DATE 05/14/23 01:00 Blood Culture - Preliminary Blood NEGATIVE TO DATE A&P Assessment and plan (1) AMS (altered mental status): Qualifiers: Altered mental status type: somnolence Qualified Code(s): R40.0 - Somnolence (2) Acute UTI: (3) Bilateral hydronephrosis: (4) ARI (acute kidney injury): (5) Atrial fibrillation: (6) Chronic anticoagulation: (7) BPH loc w urin obs/LUTS: (8) Intermittent self-catheterization of bladder: (9) Diabetes mellitus, type II: Qualifiers: Diabetes mellitus 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 Cystitis: Patient with history of recurrent UTIs along with hematuria with past history of ureteral stent placement and removal. Appreciate CT abdomen pelvis results with bilateral hydroureteronephrosis with concerns of possible bladder outlet obstruction versus UPJ stricture. Urine culture in past growing possible Enterobacter VRE, Pseudomonas, Carolyn a nd cryptococcus neoformans 1 time. Follow-up urine culture, cryptococcus antigen. HIV negative. Patient has persistent leukocytosis. For now switch from Zosyn to meropenem given history of pneumonitis and Enterobacter VRE. MRSA negative, blood cultures so far negative. Acute kidney injury: With worsening bilateral hydroureteronephrosis. Medical reconciliation done for nephrotoxic drugs. Creatinine improving. Plan for KUB ultrasound in a.m. to monitor hydroureteronephrosis. Hoping for improvement in the ureter nephrosis with Villanueva catheterization. If worsening or persistent might have to look for transfer to hospital with urology in place for possible stent placement. Monitor BMP daily for now. No record normality. Continue with IV fluids. Atrial fibrillation: Rate controlled. Continue on home dose of digoxin and sotalol. Patient having on and off hematuria ongoing for last couple of months.? Patient has not taking his Xarelto for last 2 weeks and now his hematuria has resolved.? Discussed in detail that unfortunately patient is always at a risk of hematuria given his friable urinary bladder in setting of chronic cystitis.? Discussed risk of stroke given history of A-fib.? After lengthy discussion patient wants to continue anticoagulation for now. For now continue with Lovenox twice daily started on admission. Type 2 diabetes: Neuropathy: HbA1c 10. I will slightly reduce the dose of gabapentin due to RAI Continue Lantus 60 units along with insulin sliding scale high-dose protocol. Patient seems to have Alzheimer's, experiences hallucinations as well Patient lives with his daughter at home, does have home health Full code Full dose Lovenox will suffice as DVT prophylaxis. Cardiac carb consistent diet. Attestations Medical Necessity Statement*: Require further hospitalization for management of altered mental status in setting of cystitis, acute kidney injury in a patient with bilateral hydroureteronephrosis in setting of possible bladder outlet obstruction while renal functions are monitored Diagnoses AMS (altered mental status) R40.0 Altered mental status type: somnolence Acute UTI N39.0 Bilateral hydronephrosis N13.30 RAI (acute kidney injury) N17.9 Atrial fibrillation I48.91 Chronic anticoagulation Z79.01 BPH loc w urin obs/LUTS N40.1 Intermittent self-catheterization of bladder Z78.9 Diabetes mellitus, type II E11.42; Z79.4 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
[2023-05-15 16:38] LABS: Glucose Point of Care 157 mg/dL (70-110)
[2023-05-15 21:31] LABS: Glucose Point of Care 194 mg/dL (70-110)
[2023-05-15] MEDS: insulin glargine 100 units/1 mL 60 UNIT SUBCUT (22:02)
[2023-05-16] VITALS (9 sets, daily range): BP systolic 158–188; BP diastolic 69–102; PULSE 67–75; RESP 16–20; TEMP 36.1–37.2; O2SAT 94–97
[2023-05-16] MEDS: sodium chloride 0.9% 1,000 ML 75 ML IV (00:42)
[2023-05-16] MEDS: meropenem 1,000 MG in sodium chloride 0.9% (plus) 50 ML 100 MG IV ×3 (02:53→18:02)
[2023-05-16 05:00] LABS: Basophils # 0.1 10^3/uL (0.0-0.1); Basophils % 0.5 %; Eosinophils # 0.4 10^3/uL (0.0-0.8); Eosinophils % 3.3 %; Hemoglobin 9.9 g/dL (11.7-16.6); Lymphocytes # 2.4 10^3/uL (0.8-4.8); Lymphocytes % 18.1 %; Mean Corpuscular HGB Conc 31.9 g/dL (30.0-36.0); Mean Corpuscular Hemoglobin 29.2 pg (28.0-34.0); Mean Corpuscular Volume 91.4 fl (80-94); Mean Platelet Volume 9.5 fL (7.4-10.4); Monocytes % 7.6 %; Neutrophils # 9.22 10^3/uL (1.8-7.7); Neutrophils % 69.8 %; Nucleated Red Blood Cells % 0 %; Platelet Count 309 10^3/cmm (130-400); Red Blood Count 3.39 10^6/uL (4.1-5.3); Red Cell Distribution Width 13.6 % (12.1-15.1); White Blood Count 13.2 10^3/uL (4.0-10.0)
[2023-05-16 05:23] LABS: Alanine Aminotransferase 16 U/L (0-41); Albumin Level 2.6 g/dL (3.5-5.2); Alkaline Phosphatase 69 U/L (40-130); Anion Gap 14.7 (5-19); Aspartate Amino Transferase 34 U/L (0-40); Blood Urea Nitrogen 17 mg/dL (8-23); Calcium 8.2 mg/dL (8.5-10.5); Carbon Dioxide 21 mmol/L (22-29); Chloride 105 mmol/L (98-107); Globulin 3.5 g/dL (1.3-4.6); Glucose 155 mg/dL (65-115); Osmolality Calculated 289 mOsm/kg (285-295); Potassium 3.7 mmol/L (3.5-5.1); Sodium 137 mmol/L (136-145); Total Bilirubin 0.3 mg/dL (0.15-1.2); Total Protein 6.1 g/dL (6.6-8.7)
[2023-05-16] MEDS: enoxaparin 100 mg/mL Syringe 90 MG SUBCUT ×2 (06:14→17:40)
[2023-05-16 06:55] LABS: Glucose Point of Care 162 mg/dL (70-110)
[2023-05-16] MEDS: sennosides-docusate Tablet 1 TAB PO (08:16)
[2023-05-16] MEDS: gabapentin 300 mg Capsule 600 MG PO ×3 (08:17→21:45)
[2023-05-16] MEDS: insulin lispro 100 unit/1 mL SUBCUT ×4 (08:17→21:44)
[2023-05-16] MEDS: cyanocobalamin 1,000 mcg/mL SDV 1000 MCG IM (08:17)
[2023-05-16] MEDS: sotalol 80 mg Tablet PO ×2 (08:17→17:40)
[2023-05-16] MEDS: morphine IR 15 mg Tablet PO (10:57)
[2023-05-16 11:33] LABS: Glucose Point of Care 245 mg/dL (70-110)
[2023-05-16] MEDS: digoxin 250 mcg Tablet PO (13:32)
[2023-05-16] MEDS: amlodipine 5 mg Tablet PO (13:32)
--- NOTE | 2023-05-16 15:38 | PM.PN ---
Subjective Subjective: No acute event overnight. Today morning examination patient comfortably in bed. States he is feeling a lot better. Denies any nausea, and, headache. Has remained afebrile. Blood pressures trending up. Blood work done today shows leukocytosis of 13.2 which is trending down, stable hemoglobin of 9.9, CMP showing creatinine back to baseline of 1.1, no electrolyte abnormality, urine culture showing superficial negrito. Blood sugars trending up. Overall received 6 units of Lantus and 30 units of Humalog in last 24 hours. Vitals/I&O/Wt Last Vital Signs Temp 98.5 F 05/16/23 12:00 Pulse 75 05/16/23 13:32 Resp 16 05/16/23 12:00 BP 158/69 05/16/23 12:00 Pulse Ox 96 05/16/23 12:00 O2 Del Method Room Air 05/16/23 08:00 05/16/23 05/16/23 05/16/23 06:59 14:59 22:59 Intake Total 1050 / 2920 1417.5 / 1417.5 240 / 1657.5 Output Total 1850 / 2650 900 / 900 Balance -800 / 270 517.5 / 517.5 240 / 757.5 Physical Exam Narrative: General: No acute distress, AO x3, mildly anemic, Villanueva catheter in place HEENT: PERRLA, pupils bilaterally equal and reactive Chest: Normal vesicular breath sounds, no added sounds, equal good air entry bilaterally CVS: S1-S2 regular, no murmurs, no tachycardia, no gallops, no rubs Abdomen: Soft, nontender, no organomegaly, bowel sounds present Neuro: No focal deficits, no facial deformity, AO x3, power 5/5 in all limbs Urinary Catheter Management: Villanueva: Cath Placed During This Visit: yes Reason for Continuing Indwelling Catheter: Other Urinary Catheter Date of Insertion: 05/14/23 Urinary Catheter Time of Insertion: 09:00 Data 05/16/23 04:34 05/16/23 04:34 Micro: Microbiology 05/15/23 09:30 Sputum Culture - Preliminary Sputum - Expectorated Sputum 05/16/23 04:34 Cryptococcal Antigen (Serum) - Final Blood 05/14/23 01:46 Urine Culture - Final Urine,Clean Catch 05/14/23 18:12 MRSA Culture - Final Nose A&P Assessment and plan (1) AMS (altered mental status): Qualifiers: Altered mental status type: somnolence Qualified Code(s): R40.0 - Somnolence (2) Acute UTI: (3) Bilateral hydronephrosis: (4) RAI (acute kidney injury): (5) Atrial fibrillation: (6) Chronic anticoagulation: (7) BPH loc w urin obs/LUTS: (8) Intermittent self-catheterization of bladder: (9) Diabetes mellitus, type II: Qualifiers: Diabetes mellitus intermodal customer service insulin use: with residential use Diabetes mellitus complication status: with neurologic complications Diabetes mellitus complication detail: with polyneuropathy Qualified Code(s): E11.42 - Type 2 diabetes mellitus with diabetic polyneuropathy; 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 Cystitis: Patient with history of recurrent UTIs along with hematuria with past history of ureteral stent placement and removal. Appreciate CT abdomen pelvis results with bilateral hydroureteronephrosis with concerns of possible bladder outlet obstruction versus UPJ stricture. Urine culture in past growing possible Enterobacter VRE, Pseudomonas, Carolyn and cryptococcus neoformans 1 time. Follow-up urine culture, cryptococcus antigen. HIV negative. Patient has persistent leukocytosis. For now switch from Zosyn to meropenem given history of pneumonitis and Enterobacter VRE. MRSA negative, blood cultures so far negative. Acute kidney injury: With worsening bilateral hydroureteronephrosis. Medical reconciliation done for nephrotoxic drugs. Creatinine improving. Plan for KUB ultrasound in a.m. to monitor hydroureteronephrosis. Hoping for improvement in the ureter nephrosis with Villanueva catheterization. If worsening or persistent might have to look for transfer to hospital with urology in place for possible stent placement. Monitor BMP daily for now. No record normality. Continue with IV fluids. Atrial fibrillation: Rate controlled. Continue on home dose of digoxin and sotalol. Patient having on and off hematuria ongoing for last couple of months.? Patient has not taking his Xarelto for last 2 weeks and now his hematuria has resolved.? Discussed in detail that unfortunately patient is always at a risk of hematuria given his friable urinary bladder in setting of chronic cystitis.? Discussed risk of stroke given history of A-fib.? After lengthy discussion patient wants to continue anticoagulation for now. For now continue with Lovenox twice daily started on admission. Type 2 diabetes: Neuropathy: HbA1c 10. I will slightly reduce the dose of gabapentin due to RAI Continue Lantus 60 units along with insulin sliding scale high-dose protocol. Patient seems to have Alzheimer's, experiences hallucinations as well Patient lives with his daughter at home, does have home health Full code Full dose Lovenox will suffice as DVT prophylaxis. Cardiac carb consistent diet. Plan for the day: Urine culture negative most likely in setting of oral antibiotic as an outpatient along with fluconazole. For now plan to continue antibiotics to overall finish a 5-day course. Day 3 today. Follow-up cryptococcal antigen serology. Kidney functions back to baseline. Stop IV fluids. Continue with Villanueva catheterization. Repeat ultrasound KUB for further evaluation and monitoring of hydroureteronephrosis. Increase Lantus to home dose of 80 units. Continue sliding scale. Goal blood pressure less than 140/90 mmHg. Blood pressures trending up. Continue with home dose of sotalol. Add amlodipine 5 mg oral daily. Stopping IV fluids as above which would also help. Discharge planning: If KUB shows improvement in hydroureteronephrosis plan to discharge with Villanueva catheterization within next 24 hours. Attestations Medical Necessity Statement*: Requires further hospitalization for management of cystitis, acute kidney injury in setting of bilateral hydroureteronephrosis with concerns for bladder outlet obstruction versus UVJ stricture Diagnoses AMS (altered mental status) R40.0 Altered mental status type: somnolence Acute UTI N39.0 Bilateral hydronephrosis N13.30 RAI (acute kidney injury) N17.9 Atrial fibrillation I48.91 Chronic anticoagulation Z79.01 BPH loc w urin obs/LUTS N40.1 Intermittent self-catheterization of bladder Z78.9 Diabetes mellitus, type II E11.42; Z79.4 Diabetes mellitus intermodal customer service insulin use: with intermodal customer service use Diabetes mellitus complication status: with neurologic complications Diabetes mellitus complication detail: with polyneuropathy Bladder spasms N32.89 Yeast UTI B37.49 Mild cognitive impairment with memory loss G31.84 Alzheimer disease G30.9; F02.80
[2023-05-16 17:23] LABS: Glucose Point of Care 215 mg/dL (70-110)
[2023-05-16 20:51] LABS: Glucose Point of Care 248 mg/dL (70-110)
[2023-05-16] MEDS: insulin glargine 100 units/1 mL 80 UNIT SUBCUT (21:44)
[2023-05-16] MEDS: atorvastatin 40 mg Tablet 80 MG PO (21:45)
[2023-05-16] MEDS: tamsulosin 0.4 mg Capsule PO (21:45)
[2023-05-17] VITALS (8 sets, daily range): BP systolic 137–181; BP diastolic 74–91; PULSE 67–82; RESP 16–18; TEMP 36.4–36.9; O2SAT 94–98
[2023-05-17] MEDS: meropenem 1,000 MG in sodium chloride 0.9% (plus) 50 ML 100 MG IV ×2 (02:07→10:16)
[2023-05-17 06:05] LABS: Basophils # 0.1 10^3/uL (0.0-0.1); Basophils % 0.7 %; Eosinophils # 0.6 10^3/uL (0.0-0.8); Eosinophils % 5.5 %; Hematocrit 32.2 % (42.0-52.0); Hemoglobin 10.3 g/dL (11.7-16.6); Lymphocytes # 2.2 10^3/uL (0.8-4.8); Lymphocytes % 19.6 %; Mean Corpuscular Hemoglobin 29.3 pg (28.0-34.0); Mean Corpuscular Volume 91.7 fl (80-94); Mean Platelet Volume 9.5 fL (7.4-10.4); Monocytes # 0.8 10^3/uL (0.2-0.9); Monocytes % 7.4 %; Neutrophils # 7.45 10^3/uL (1.8-7.7); Neutrophils % 66.2 %; Nucleated Red Blood Cells % 0 %; Platelet Count 329 10^3/cmm (130-400); Red Blood Count 3.51 10^6/uL (4.1-5.3); Red Cell Distribution Width 13.6 % (12.1-15.1); White Blood Count 11.3 10^3/uL (4.0-10.0)
[2023-05-17] MEDS: enoxaparin 100 mg/mL Syringe 90 MG SUBCUT (06:20)
[2023-05-17 06:28] LABS: Alanine Aminotransferase 15 U/L (0-41); Albumin Level 2.9 g/dL (3.5-5.2); Alkaline Phosphatase 81 U/L (40-130); Anion Gap 14.9 (5-19); Aspartate Amino Transferase 21 U/L (0-40); Blood Urea Nitrogen 18 mg/dL (8-23); Calcium 8.8 mg/dL (8.5-10.5); Carbon Dioxide 24 mmol/L (22-29); Chloride 102 mmol/L (98-107); Globulin 3.3 g/dL (1.3-4.6); Glucose 257 mg/dL (65-115); Osmolality Calculated 295 mOsm/kg (285-295); Potassium 3.9 mmol/L (3.5-5.1); Sodium 137 mmol/L (136-145); Total Bilirubin 0.2 mg/dL (0.15-1.2); Total Protein 6.2 g/dL (6.6-8.7)
[2023-05-17 06:41] LABS: Glucose Point of Care 228 mg/dL (70-110)
[2023-05-17] MEDS: amlodipine 5 mg Tablet PO ×2 (08:50→12:39)
[2023-05-17] MEDS: gabapentin 300 mg Capsule 600 MG PO (08:50)
[2023-05-17] MEDS: cyanocobalamin 1,000 mcg/mL SDV 1000 MCG IM (08:50)
[2023-05-17] MEDS: digoxin 250 mcg Tablet PO (08:50)
[2023-05-17] MEDS: sotalol 80 mg Tablet PO (08:50)
[2023-05-17] MEDS: sennosides-docusate Tablet 1 TAB PO (08:50)
[2023-05-17] MEDS: insulin lispro 100 unit/1 mL SUBCUT ×2 (08:51→12:03)
[2023-05-17] MEDS: losartan 50 mg Tablet PO (10:16)
[2023-05-17 11:00] LABS: Glucose Point of Care 392 mg/dL (70-110)
--- NOTE | 2023-05-17 11:45 | USR_ITS ---
PROCEDURE INFORMATION: Exam: US Retroperitoneal; Complete; Kidneys and Bladder Exam date and time: 05/17/2023 11:41 AM Age: 73 years old Clinical indication: Condition or disease; Kidney or ureter condition; Hydroureter; Additional info: Hydrouretronephrosis TECHNIQUE: Imaging protocol: Real-time ultrasound of the retroperitoneum with image documentation. Complete exam focused on the kidneys and bladder. COMPARISON: [place] [id number] 05/14/2023 2:17 AM FINDINGS: Right kidney: Measures 12 x 6.7 x 6.2 cm. No stones. No hydronephrosis. Left kidney: Measures 10.6 x 5.6 x 4.7 cm. No stones. No hydronephrosis. Urinary bladder: There is a Villanueva catheter in a decompressed bladder. US/US renal BI* [id number] IMPRESSION: Unremarkable kidneys and bladder.
--- NOTE | 2023-05-17 12:18 | PM.DCS ---
Discharge Providers Date of Admission: 05/14/23 03:10 Date of Discharge: May 17, 2023 Attending Provider at Admission: Carol Juarez MD Attending Provider at Discharge: Mike Tipton MD Primary Care Provider: Trisha Urena MD Diagnoses at Discharge Discharge Diagnosis (1) AMS (altered mental status): Status: Acute Qualifiers: Altered mental status type: somnolence Qualified Code(s): R40.0 - Somnolence (2) Acute UTI: Status: Acute (3) Bilateral hydronephrosis: Status: Acute (4) RAI (acute kidney injury): Status: Acute (5) Atrial fibrillation: Status: Chronic (6) Chronic anticoagulation: Status: Chronic Permanent problem details: Taken off Xarelto secondary to hematuria (7) BPH loc w urin obs/LUTS: Status: Chronic (8) Intermittent self-catheterization of bladder: Status: Chronic Permanent problem details: due to urinary retention (9) Diabetes mellitus, type II: Status: Chronic Qualifiers: Diabetes mellitus complication detail: with polyneuropathy Diabetes mellitus complication status: with neurologic complications Diabetes mellitus usp insulin use: with usp use Qualified Code(s): E11.42 - Type 2 diabetes mellitus with diabetic polyneuropathy; Z79.4 - intermission coordinator (current) use of insulin (10) Bladder spasms: Status: Acute (11) Yeast UTI: Status: Acute (12) Mild cognitive impairment with memory loss: Status: Acute (13) Alzheimer disease: Status: Acute Reason for Visit Reason for Visit: high bp, fever Brief History: History as per HPI: Raphael Deal is a 73 year old male with history of type 2 diabetes, BPH, previous history of ureteral stent removed by Dr. Paul, presented to hospital with chief complaint of fever and altered mental status.? Patient lives with his daughter.? Patient also has history of A-fib not on anticoagulation for hematuria in the past.? Patient at the time of evaluation is awake and alert however not able to recall events at home.? As per the ER physician daughter sent him here when he was concern for confusion with fever of 101 despite antifungal and levofloxacin for last 20 days for recurrent UTIs. In the ER his white count is 14, he is afebrile no signs of sepsis however there is bilateral hydronephrosis with concern for ureterovesical junction stricture creatinine 1.7 Patient is awake and alert without any signs of stroke He is complaining of burning sensation in his feet asking for ibuprofen Hospital Course Hospital Course Patient was admitted to the hospital for further evaluation and management of bilateral hydroureteronephrosis with concern for possible bladder outlet obstruction UVJ stricture, acute kidney injury, cystitis. Started on broad-spectrum antibiotics as per old cultures history. Started on IV fluid for patient along with Villanueva catheter placement. He responded well to the treatment and his RAI resolved with improvement in urine output. Repeat renal ultrasound was done which showed resolution of hydroureteronephrosis. Given the clinical improvement in both RAI and hydronephrosis etiology is most likely in setting of bladder outlet obstruction which was treated with Villanueva catheterization. During hospitalization his blood cultures remain negative and urine culture also remained negative which is most likely because of patient being on fluconazole prior to admission. Patient has been having on and off hematuria ongoing for last couple of months.? Patient has not taking his Xarelto for last 2 weeks and now his hematuria has resolved.? Discussed in detail that unfortunately patient is always at a risk of hematuria given his friable urinary bladder in setting of chronic cystitis.? Discussed risk of stroke given history of A-fib.? After lengthy discussion patient wants to continue anticoagulation for now. During hospitalization he was found to have an elevated blood pressure for which he was started on 10 mg of amlodipine along with continuation of home dose of losartan, sotalol and digoxin. He has been discharged with a Villanueva catheter in place on oral Keflex for 5 more days. He is to follow-up with urology as an outpatient. A Villanueva catheter remains in place for more than 1 month and should be replaced. Physical Exam Narrative: General: No acute distress, AO x3, mildly anemic, Villanueva catheter in place HEENT: PERRLA, pupils bilaterally equal and reactive Chest: Normal vesicular breath sounds, no added sounds, equal good air entry bilaterally CVS: S1-S2 regular, no murmurs, no tachycardia, no gallops, no rubs Abdomen: Soft, nontender, no organomegaly, bowel sounds present Neuro: No focal deficits, no facial deformity, AO x3, power 5/5 in all limbs Urinary Catheter Management: Villanueva: Cath Placed During This Visit: yes Reason for Continuing Indwelling Catheter: Other Urinary Catheter Date of Insertion: 05/14/23 Urinary Catheter Time of Insertion: 09:00 Discharge Data Studies Completed and Pending Completed Studies During Hospitalization Category [place] [id number] Stat Cat Scan 05/14/23 00:[address] head wo con* [id number] Stat Cat Scan 05/14/23 00:55 Completed XR chest 1V portable [id number] Stat Exams 05/14/23 00:45 Completed Pending at discharge Category Date Time Status Blood Culture Stat Lab 05/14/23 01:10 Results Cryptococcal Antigen w/ Reflex Routine Lab 05/14/23 01:10 Received Sputum Culture Routine Lab 05/15/23 09:30 Results US renal BI* [id number] Routine Ultrasound 05/17/23 11:45 Taken Radiology Impressions Chest X-Ray 05/14/23 00:45 IMPRESSION: No acute findings. Chest/Abdomen/Pelvis CT 05/14/23 00:55 IMPRESSION: Negative CT chest. IMPRESSION: 1. Bilateral hydroureteronephrosis new from comparison imaging. Consider UVJ strictures given the bladder wall thickening. Consider chronic bladder outlet obstruction. 2. Consider cystitis given the perivesical fat stranding changes. Head CT 05/14/23 00:55 IMPRESSION: 1. No evidence of acute intracranial hemorrhage, mass effect, or midline shift. 2. Please note that CT is insensitive to nonhemorrhagic strokes and MRI of the brain should be considered if there is clinical concern for acute cerebral infarction. Renal ultrasound: FINDINGS: Right kidney:? Measures 12 x 6.7 x 6.2 cm.? No stones. No hydronephrosis.? Left kidney:? Measures 10.6 x 5.6 x 4.7 cm.? No stones. No hydronephrosis.? Urinary bladder:? There is a Villanueva catheter in a decompressed bladder. US/US renal BI* [id number] IMPRESSION: Unremarkable kidneys and bladder. Microbiology 05/15/23 09:30 Sputum - Expectorated Sputum Sputum Culture - Preliminary 05/16/23 04:34 Blood Cryptococcal Antigen (Serum) - Final 05/14/23 01:46 Urine,Clean Catch Urine Culture - Final 05/14/23 18:12 Nose MRSA Culture - Final 05/14/23 01:10 Blood Blood Culture - Preliminary NEGATIVE TO DATE 05/14/23 01:00 Blood Blood Culture - Preliminary NEGATIVE TO DATE Laboratory Results WBC 11.3 10^3/uL (4.0-10.0) H 05/17/23 05:52 RBC 3.51 10^6/uL (4.1-5.3) L 05/17/23 05:52 Hgb 10.3 g/dL (11.7-16.6) L 05/17/23 05:52 Hct 32.2 % (42.0-52.0) L 05/17/23 05:52 MCV 91.7 fl (80-94) 05/17/23 05:52 MCH 29.3 pg (28.0-34.0) 05/17/23 05:52 MCHC 32.0 g/dL (30.0-36.0) 05/17/23 05:52 RDW 13.6 % (12.1-15.1) 05/17/23 05:52 Plt Count 329 10^3/cmm (130-400) 05/17/23 05:52 MPV 9.5 fL (7.4-10.4) 05/17/23 05:52 Neut % (Auto) 66.2 % 05/17/23 05:52 Lymph % (Auto) 19.6 % 05/17/23 05:52 [place] % (Auto) 7.4 % 05/17/23 05:52 Eos % (Auto) 5.5 % 05/17/23 05:52 Baso % (Auto) 0.7 % 05/17/23 05:52 Neut # (Auto) 7.45 10^3/uL (1.8-7.7) 05/17/23 05:52 Lymph # (Auto) 2.2 10^3/uL (0.8-4.8) 05/17/23 05:52 [place] # (Auto) 0.8 10^3/uL (0.2-0.9) 05/17/23 05:52 Eos # (Auto) 0.6 10^3/uL (0.0-0.8) 05/17/23 05:52 Baso # (Auto) 0.1 10^3/uL (0.0-0.1) 05/17/23 05:52 Nucleated RBC % (auto) 0 % 05/17/23 05:52 Nucleated RBCs # 0.0 /100WBC 05/17/23 05:52 ESR 23 mm/hr (0-10) H 05/14/23 01:10 D-Dimer 0.76 ug/mIFEU (0-0.59) H 05/14/23 01:10 Specimen Type Arterial 05/14/23 00:49 Sample Site Radial, right 05/14/23 00:49 ABG pH 7.43 (7.35-7.45) 05/14/23 00:49 ABG pCO2 32.7 mmHg (35-45) L 05/14/23 00:49 ABG pO2 63.4 mmHg (80.0-100.0) L 05/14/23 00:49 ABG HCO3 21.6 mmol/L (22-26) L 05/14/23 00:49 ABG Base Excess -2.1 mmol/L (-2.0-2.0) L 05/14/23 00:49 [place] Test Pos 05/14/23 00:49 Hematocrit 35.0 % (42-52) L 05/14/23 00:49 O2 Delivery Device Room air 05/14/23 00:49 FiO2 21.0 % 05/14/23 00:49 Spring Clipper ID [place] 05/14/23 00:49 Sodium 137 mmol/L (136-145) 05/17/23 05:52 Potassium 3.9 mmol/L (3.5-5.1) 05/17/23 05:52 Chloride 102 mmol/L (98-107) 05/17/23 05:52 Carbon Dioxide 24 mmol/L (22-29) 05/17/23 05:52 Anion Gap 14.9 (5-19) 05/17/23 05:52 BUN 18 mg/dL (8-23) 05/17/23 05:52 Creatinine 1.0 mg/dL (0.7-1.2) 05/17/23 05:52 GFR Calculation Not Reportable 05/17/23 05:52 Glucose 257 mg/dL (65-115) H 05/17/23 05:52 POC Glucose 392 mg/dL (70-110) H 05/17/23 10:51 Estimat Average Glucose 240 05/15/23 04:36 Hemoglobin A1c 10.0 % (4.0-6.0) H 05/15/23 04:36 Calculated Osmolality 295 mOsm/kg (285-295) 05/17/23 05:52 Lactic Acid 2.2 mmol/L (0.5-2.2) 05/14/23 01:10 Lactic Acid (Sepsis) 1.6 mmol/L (0.5-2.2) 05/14/23 06:00 Calcium 8.8 mg/dL (8.5-10.5) 05/17/23 05:52 Phosphorus 3.2 mg/dL (2.5-4.5) 05/15/23 04:36 Magnesium 1.7 mg/dL (1.7-2.3) 05/15/23 04:36 Iron 20 ug/dL (59-158) L 05/14/23 01:10 TIBC 302 mcg/dl 05/14/23 01:10 % Saturation 6.6 % (20-50) L 05/14/23 01:10 Unsat Iron Binding 282 ug/dL (112-347) 05/14/23 01:10 Total Bilirubin 0.2 mg/dL (0.15-1.2) 05/17/23 05:52 AST 21 U/L (0-40) 05/17/23 05:52 ALT 15 U/L (0-41) 05/17/23 05:52 Alkaline Phosphatase 81 U/L (40-130) 05/17/23 05:52 Troponin T Baseline 40 ng/L (0-15) H 05/14/23 01:10 Troponin T 120 Minute 42.00 ng/L (0-15) H 05/14/23 03:00 Delta Troponin T 2.00 ABS# (0-10) 05/14/23 03:00 Troponin T Hi Sens 6Hr 38.98 ng/L (0-15) H 05/14/23 07:25 Troponin T Hi Sens 6Hr Delta -1.02 ng/L (0-12) L 05/14/23 07:25 C-Reactive Protein 221.0 mg/L (0.0-4.9) H 05/15/23 04:36 Total Protein 6.2 g/dL (6.6-8.7) L 05/17/23 05:52 Albumin 2.9 g/dL (3.5-5.2) L 05/17/23 05:52 Globulin 3.3 g/dL (1.3-4.6) 05/17/23 05:52 Triglycerides 382 mg/dL (0-150) H 05/15/23 04:36 Cholesterol 141 mg/dL (0-200) 05/15/23 04:36 LDL Cholesterol, Calc 34 mg/dL (50-129) L 05/15/23 04:36 Total VLDL Cholesterol 76 mg/dL (0-30) H 05/15/23 04:36 HDL Cholesterol 31 mg/dL (60-100) L 05/15/23 04:36 Cholesterol/HDL Ratio 4.55 mg/dL (1.0-5.00) 05/15/23 04:36 Vitamin B12 288 pg/mL (232-1245) 05/14/23 01:10 Folate 13.5 ng/mL (4.5-32.2) 05/15/23 04:36 Urine Color Yellow (Yellow) 05/14/23 01:46 Urine Appearance Sl hazy (CLEAR) A 05/14/23 01:46 Urine pH 6 (5-7) 05/14/23 01:46 Ur Specific [place] 1.010 (1.005-1.030) 05/14/23 01:46 Urine Protein 2+ (Negative) H 05/14/23 01:46 Urine Glucose (UA) 4+ (Normal) H 05/14/23 01:46 Urine Ketones Negative (Negative) 05/14/23 01:46 Urine Blood 3+ (Negative) H 05/14/23 01:46 Urine Nitrate Negative (Negative) 05/14/23 01:46 Urine Bilirubin Neg (Negative) 05/14/23 01:46 Urine Urobilinogen Neg mg/dL (Negative) 05/14/23 01:46 Ur Leukocyte Esterase 2+ (Negative) H 05/14/23 01:46 Urine RBC 10-15 /hpf (0-2) H 05/14/23 01:46 Urine WBC 15-25 /hpf (0-5) H 05/14/23 01:46 Ur Squamous Epith Cells None /hpf (0-5) 05/14/23 01:46 Amorphous Sediment Not Reportable 05/14/23 01:46 Urine Bacteria 3+ /hpf (NONE) H 05/14/23 01:46 Nasal Influ A H1 2009 PCR Not detected (NOT DETECT) 05/14/23 02:03 Serum Ketones Negative (Negative) 05/14/23 01:10 Adenovirus (PCR) Not detected (NOT DETECT) 05/14/23 02:03 C. pneumoniae DNA (PCR) Not detected (NOT DETECT) 05/14/23 02:03 Coronavirus 229E (PCR) Not detected (NOT DETECT) 05/14/23 02:03 HIV 1&2 Ab & HIV 1 Ag Non-reactive (Non-Reactiv) 05/14/23 01:10 HIV 1&2 Antibody Non-reactive (Non-Reactiv) 05/14/23 01:10 Human Metapneumovir PCR Not detected (NOT DETECT) 05/14/23 02:03 Influenza A (H1) PCR Not detected (NOT DETECT) 05/14/23 02:03 Influenza A (H3) PCR Not detected (NOT DETECT) 05/14/23 02:03 Influenza Type A (PCR) Not detected (NOT DETECT) 05/14/23 02:03 Influenza Type B (PCR) Not detected (NOT DETECT) 05/14/23 02:03 M. pneumoniae (PCR) Not detected (NOT DETECT) 05/14/23 02:03 Parainfluenza 1 (PCR) Not detected (NOT DETECT) 05/14/23 02:03 Parainfluenza 2 (PCR) Not detected (NOT DETECT) 05/14/23 02:03 Parainfluenza 3 (PCR) Not detected (NOT DETECT) 05/14/23 02:03 Parainfluenza 4 (PCR) Not detected (NOT DETECT) 05/14/23 02:03 RSV Type A (PCR) Not detected (NOT DETECT) 05/14/23 02:03 RSV Type B (PCR) Not detected (NOT DETECT) 05/14/23 02:03 Entero/Rhino (PCR) Not detected (NOT DETECT) 05/14/23 02:03 SARS-CoV-2 (PCR) Not detected (NOT DETECT) 05/14/23 02:03 Vitals Last Vital Signs Temp 98.5 F 05/17/23 08:00 Pulse 82 05/17/23 08:50 Resp 18 05/17/23 08:00 BP 149/80 05/17/23 10:16 Pulse Ox 95 05/17/23 08:00 O2 Del Method Room Air 05/17/23 08:00 Discharge Plan Discharge Patient Disposition: Home Condition: Stable Prescriptions: New cephalexin 500 mg capsule 500 mg PO BID Qty: 6 0RF losartan 50 mg Tablet 50 mg PO DAILY Qty: 30 0RF amlodipine 10 mg Tablet 10 mg PO DAILY Qty: 30 0RF Xarelto 15 mg tablet 15 mg PO QPM Qty: 30 0RF Rx Instructions: must administer with evening meal Continued (DME) Dexcom G6 Service Desk Agent Misc See Rx Instructions .Route Qty: 1 0RF Rx Instructions: Check BS 4-6 times a day. (DME) water aerobics See Rx Instructions .Route .MEDSUPPLY Qty: 1 0RF Rx Instructions: As directed krill oil 500 mg capsule 500 mg PO DAILY insulin aspart U-100 [Novolog FlexPen U-100 Insulin] 100 unit/mL (3 mL) insulin pen 35 unit .ROUTE TID Qty: 30 3RF Rx Instructions: 35 units three times daily; (DME) Dexcom G6 Transmitter Device See Rx Instructions .Route Qty: 1 3RF Rx Instructions: Change every 90 days. galantamine 4 mg tablet See Rx Instructions .ROUTE .COMPLEX Qty: 90 0RF Dose Instruction: TAKE ONE TABLET BY MOUTH TWICE A DAY TAKE MORNING AND EVENING WITH FOOD AND WATER. Rx Instructions: TAKE ONE TABLET BY MOUTH TWICE A DAY TAKE MORNING AND EVENING WITH FOOD AND WATER. (DME) Dexcom G6 Sensor Device See Rx Instructions .ROUTE .COMPLEX Qty: 9 0RF Dose Instruction: USE 1 SENSOR UNDER THE SKIN EVERY 10 DAYS CHANGE SENSOR/SITE EVERY 10 DAYS. CONTACT [facility] CUST[facility]ER [facility] AT FOR REPLACEMENT OF DAMAGED/MALFUNCTIONING SENSORS. Rx Instructions: Change every 10 days gabapentin 800 mg Tablet 800 mg PO TID fluticasone propionate [Flonase Allergy Relief] 50 mcg/actuation [place],Suspension 2 spray INTRANASAL DAILY PRN (Reason: Allergy Symptoms) fluticasone propion-salmeterol [Wixela Inhub] 100-50 mcg/dose Blister With Device 1 inh INHALATION BID albuterol sulfate [ProAir HFA] 90 mcg/actuation HFA aerosol inhaler 2 puff INHALATION Q4H PRN (Reason: Shortness Of Breath) rosuvastatin 40 mg tablet 20 mg PO BEDTIME tamsulosin 0.4 mg capsule 0.4 mg PO BEDTIME digoxin 250 mcg (0.25 mg) Tablet 250 mcg PO DAILY methocarbamol 750 mg tablet 750 mg PO QID PRN (Reason: Muscle Spasm) metformin 500 mg tablet extended release 24 hr 500 mg PO BID cholecalciferol (vitamin D3) [Vitamin D3] 25 mcg (1,000 unit) Tablet 25 mcg PO DAILY multivitamin Tablet 1 tab PO DAILY coenzyme Q10 10 mg Capsule 10 mg PO DAILY cyanocobalamin (vitamin B-12) 1,000 mcg/mL Solution 1,000 mcg IM Q30D cranberry 500 mg Capsule 500 mg PO DAILY Rx Instructions: administer with meals Glucerna Liquid 1 ea PO DAILY Changed furosemide 20 mg tablet 20 mg PO BID PRN (Reason: Edema) Qty: 10 0RF Lantus Solostar U-100 Insulin 100 unit/mL (3 mL) insulin pen 45 unit SUBCUT BID Qty: 15 0RF Discontinued fluconazole 100 mg tablet 100 mg PO DAILY 21 Days Qty: 21 1RF Discharge Orders: Discharge Order (Routine); Ordered 05/17/23 Ordered By: Mike Tipton Referrals: Padilla Matthews [Referring] - 7-10 days (Fax sent to office for referral.) Trisha Urena MD [Primary Care Provider] - 7-10 days (Please call Thursday to schedule an appointment with Dr. Urena.) Discharge Diet: Regular, Cardiac and Diabetic Discharge Activity: Resume usual activity and Increase activity as tolerated Patient Instructions: Cephalexin (By mouth), Amlodipine (By mouth), Losartan (By mouth), Villanueva Catheter Care, Hydronephrosis (DC), Opioid Safety Activity Restrictions/Additional Instructions: Amlodipine and losartan has been added to your medication list for high blood pressure. Please check your blood pressures daily at home and maintain a blood pressure diary and follow-up with your primary care provider within the next 10 days for further adjustment of antihypertensives. He should have a repeat BMP in 1 week. Continue antibiotic which you should take for the next 5 days. Please keep Villanueva catheter in place. Follow-up with urology within the next 2 weeks for a voiding trial. If Villanueva catheter remains in place for more than 1 month which will be replaced. Discharge Attestations Time Spent in Discharge Care*: greater than 30 min Specific Discharge Activities: educating patient, educating and/or supporting family/caregiver, discussing with pcp/other providers, discussing with case technician/social workers/dc planners, documenting/other paperwork and evaluating patient/reviewing data Status at Discharge: Cognitive status at discharge: cognitively intact, Behavioral status at discharge: cooperative, Quality Metrics Clinical Quality Measures [ No reported AMI, CVA or VTE this stay] Coding Level of Care Code 52922 Total time (in minutes) for Discharge: 60 Diagnoses AMS (altered mental status) R40.0 Altered mental status type: somnolence Acute UTI N39.0 Bilateral hydronephrosis N13.30 RAI (acute kidney injury) N17.9 Atrial fibrillation I48.91 Chronic anticoagulation Z79.01 BPH loc w urin obs/LUTS N40.1 Intermittent self-catheterization of bladder Z78.9 Diabetes mellitus, type II E11.42; Z79.4 Diabetes mellitus complication detail: with polyneuropathy Diabetes mellitus complication status: with neurologic complications Diabetes mellitus usp insulin use: with director long term care use Bladder spasms N32.89 Yeast UTI B37.49 Mild cognitive impairment with memory loss G31.84 Alzheimer disease G30.9; F02.80
--- NOTE | 2023-05-17 14:51 | PC.NURSE ---
Patient and family education provided regarding rankin catheter leg bag and main drainage bag. Education provided on hygiene, catheter care, emptying, and exchanging the bag. Patient and family verbalized understanding.
[2023-05-20 14:44] LABS: Cryptococcal Source SERUM
== END 2023-05-17 15:13 | disposition home or self-care (01) | DRG 683 ==
LOC: ER 03:03 → MEDSURG 03:10
PROVIDERS: Admitting Provider Internal Medicine; Emergency Provider Nurse Practitioner Family; PCP Family Medicine; Visit Provider Student in an Organized Health Care Education/Training Program
DX: N17.9 Acute kidney failure, unspecified (principal); B37.49 Other urogenital candidiasis; N13.8 Other obstructive and reflux uropathy; N30.21 Other chronic cystitis with hematuria; E11.42 Type 2 diabetes mellitus with diabetic polyneuropathy; N40.1 Benign prostatic hyperplasia with lower urinary tract symptoms; R33.8 Other retention of urine; I48.91 Unspecified atrial fibrillation; Z87.440 Personal history of urinary (tract) infections; N13.30 Unspecified hydronephrosis; I10 Essential (primary) hypertension; Z79.4 Long term (current) use of insulin; Z79.51 Long term (current) use 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; Z79.84 Long term (current) use of oral hypoglycemic drugs; Z87.891 Personal history of nicotine dependence; Z85.46 Personal history of malignant neoplasm of prostate; G47.33 Obstructive sleep apnea (adult) (pediatric); Z86.16 Personal history of COVID-19; G30.9 Alzheimer's disease, unspecified; F02.80 Dementia in other diseases classified elsewhere, unspecified severity, without behavioral disturbance, psychotic disturbance, mood disturbance, and anxiety; R26.89 Other abnormalities of gait and mobility; N32.89 Other specified disorders of bladder
CPT/HCPCS: 36415; 36416; 36600; 51701; 51702; 70450; 71045; 71250; 74176; 76770; 80053; 80061; 81001; 82009; 82607; 82746; 82803; 82962; 83036; 83540; 83550; 83605; 83735; 84100; 84484; 85025; 85378; 85651; 86140; 86403; 87040; 87070; 87086; 87486; 87581; 87633; 87641; 87806; 93005; 96365; 96367; 96372; 96375; 99285; J0131; J1650; J1815; J2185; J2543; J3370; J3420; J7030; J7040; J7050; J7120

== ENCOUNTER 2023-05-20 13:57 | Emergency (ER) | payer OTHER, SELFPAY ==
[2023-05-20] VITALS (84 sets, daily range): BP systolic 87–153; BP diastolic 41–106; PULSE 88–163; RESP 18–36; TEMP 36.8; O2SAT 68–98; BMI 32.6
--- NOTE | 2023-05-20 14:50 | PC.PHAR ---
FAXED NM FOR MED LIST 2:50 PM 05/20/23
--- NOTE | 2023-05-20 15:01 | ECG_ITS ---
[facility] Test Date: 2023-05-20 Pat Name: Raphael Deal Department: Room: Gender: Male [employer]: : 1950 Requested By: Rob Johnson Order Number: [id number] Nilay MD: Aleks Narvaez M.D. Measurements Intervals [place] Rate: 148 P: 0 AR: 0 QRS: 96 QRSD: 126 T: -43 QT: 262 QTc: 411 Interpretive Statements ATRIAL FIBRILLATION WITH RAPID VENTRICULAR RESPONSE RIGHT BUNDLE BRANCH BLOCK [120+ ms QRS DURATION, UPRIGHT V1, 40+ ms S IN I/aVL/V4/V5/V6] ST DEPRESSION, CONSIDER SUBENDOCARDIAL INJURY [0.1+ mV ST DEPRESSION] Compared to ECG 05/14/2023 06:08:49 ST (T wave) deviation now present Sinus rhythm no longer present First degree AV block no longer present Electronically Signed On 05-21-2023 8:00:37 CDT by Aleks Narvaez M.D. [email or web address]
[2023-05-20] MEDS: dilTIAZem 5 mg/mL SDV 5 mL 10 MG IVP (15:16)
[2023-05-20] MEDS: sodium chloride 0.9% 1,000 ML 999 ML IV ×3 (15:19→18:02)
[2023-05-20 15:23] LABS: Basophils # 0.1 10^3/uL (0.0-0.1); Basophils % 0.5 %; Eosinophils # 0.2 10^3/uL (0.0-0.8); Eosinophils % 0.8 %; Hematocrit 39.3 % (42.0-52.0); Hemoglobin 12.7 g/dL (11.7-16.6); Lymphocytes % 7.6 %; Mean Corpuscular HGB Conc 32.3 g/dL (30.0-36.0); Mean Corpuscular Hemoglobin 29.2 pg (28.0-34.0); Mean Corpuscular Volume 90.3 fl (80-94); Mean Platelet Volume 9.6 fL (7.4-10.4); Monocytes % 7.8 %; Neutrophils # 21.67 10^3/uL (1.8-7.7); Neutrophils % 82.6 %; Nucleated Red Blood Cells % 0 %; Platelet Count 586 10^3/cmm (130-400); Red Blood Count 4.35 10^6/uL (4.1-5.3); Red Cell Distribution Width 13.7 % (12.1-15.1); White Blood Count 26.2 10^3/uL (4.0-10.0)
--- NOTE | 2023-05-20 15:29 | W.ED.GENADLT ---
HPI - General Adult General: Chief complaint: General Medical Stated complaint: sent by ia bp fluct Time Seen by Provider: 05/20/23 14:42 History of Present Illness: Patient presents to the ER with complaints of increased confusion. states he woke up this morning and he kept forgetting how he was. Patient is currently alert and oriented x4 at 1 moment the next moment he is alert to 0. Patient was sent here from the [facility] for low blood pressure. Blood pressure at the [facility] was reportedly in the 60s. Upon arrival here was 90/54 with a pulse 115 bpm. Patient was recently in his hospital for UTI per the . Review of Systems General: Reports: 10 or more systems reviewed and unremarkable except in HPI and below PFSH ED PFSH: Medical History Alzheimer disease Anemia Atrial fibrillation Bacteriuria BPH loc w urin obs/LUTS Cervicalgia of pzcbdinz-visdxtr-tgdbc region Chronic anticoagulation Taken off Xarelto secondary to hematuria Diabetes mellitus, type II Diabetic foot ulcer 08/2021 - treated with I&D, antibiotics and wound care clinic management 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 mellitus 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 mellitus Gait instability H/O prostate cancer Hematuria due to acute cystitis History of cardiovascular stress test 05/2021 normal EKG response, perfusion study without findings of ischemia History of Doppler ultrasound 08/2021 venous no DVT BLE 08/2021 arterial patent vessels, left posterior tibial may be less than 60% stenosis, left dorsalis pedis not visualized History of echocardiogram 05/2021 EF 65% History of electromyography 01/23 Interpretation: The study provides electrodiagnostic evidence for an axonal sensorimotor polyneuropathy based on small or absent CMAPs and SNAPs with denervation seen distally on EMG. The study is limited for evaluation of lumbar radiculopathy related to the patient's anticoagulated state. History of sleep study 02/22 limited sleep, no apnea noted but did have nocturnal hypoxemia, recommended to use nocturnal oxygen HTN (hypertension) previously on treatment for high blood pressure Intermittent self-catheterization of bladder due to urinary retention Left ureteral calculus Lumbar stenosis L2/3, L3/4, L4/L5, with radiculopathy right lower extremity Lumbar stenosis with neurogenic claudication Mild cognitive impairment with memory loss Obstructive pyelonephritis 09/2021 required ureteral stent placement Obstructive sleep apnea Refuses CPAP SARS-CoV-2 positive positive test 11/17/2021 symptoms weakness, hypoglycemia, altered mental status and low grade fever Yeast UTI Surgical History H/O esophagogastroduodenoscopy (10/30/21) 10/2021 pedunculated polyps removed from first portion of duodenum, otherwise normal History of back surgery History of colonoscopy (10/30/21) 11/2021 diverticulosis of sigmoid colon and internal hemorrhoids, sessile polyps removed History of laminectomy 03/25 bilateral with partial facetectomies at L2-3, L3-4, L4-[address] Smith History of pilonidal cyst Other postprocedural status history of radiofrequency ablation for back pain x 2 S/P appendectomy S/P tonsillectomy S/P ureteral stent placement (09/2021) subsequent removal Status post excisional debridement 08/2021 left foot Status post laser lithotripsy of ureteral calculus (11/06/21) Family History Grandmother Heart disease Hypertension Grandfather Hypertension MATERNAL Diabetes Mother No problems noted. Father No problems noted. 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 Financial difficulty paying for basics: Very Hard Physical Exam Const: COMMON NORMALS: no acute distress, average body habitus, healthy appearing, alert and well nourished HENMT: COMMON NORMALS: normocephalic, atraumatic, hearing grossly normal bilaterally, external ears normal, Normal external nose present and moist oral mucous membranes HEAD & SCALP: normocephalic and atraumatic NOSE: Normal external nose present EXTERNAL EAR: Yes external ears normal Eye: COMMON NORMALS: Equal, round and reactive pupils present, EOMs intact bilaterally, conjunctivae normal and no scleral icterus CONJUNCTIVA: Yes conjunctivae normal PUPIL: Yes Equal, round and reactive pupils present Neck/C-Spine: COMMON NORMALS: full ROM, no lymphadenopathy, supple, no meningeal signs, no JVD and Thyroid normal THYROID: Thyroid normal Chest: COMMONS NORMALS: normal inspection of the chest and normal palpation of entire chest wall Resp: COMMON NORMALS: normal respiratory effort, No retractions, No use of accessory muscles and clear to auscultation bilaterally AUSCULTATION: clear to auscultation bilaterally Cardio: COMMON NORMALS: no JVD; negative for regular rate (Irregularly irregular rhythm) RATE: abnormal rate (Irregularly irregular rhythm) GI: COMMON NORMALS: Normal to inspection, nondistended, normoactive bowel sounds present, Soft to palpation, non-tender, No hepatosplenomegaly present and no masses PALPATION: Yes Soft to palpation and Yes No hepatosplenomegaly present : COMMON NORMALS: Yes no CVA tenderness BLADDER/KIDNEY EXAM: Yes no CVA tenderness Back/Pelvis: COMMON NORMALS: no CVA tenderness Neuro: SENSORIUM/ORIENTATION: Yes alert MENINGEAL SIGNS: Yes no meningeal signs Course Vital Signs: Vital signs: Vital Signs Temperature 98.2 F 05/20/23 14:11 Pulse Rate 95 05/20/23 19:25 Respiratory Rate 35 H 05/20/23 19:25 Blood Pressure 102/72 05/20/23 19:25 Pulse Oximetry 94 05/20/23 19:25 Oxygen Delivery Me thod Room Air 05/20/23 14:11 [facility] - General Adult Medical Decision Making Presented to the ER with complaints of altered mental status hypotension and tachycardia. Upon further work-up patient was found to be in A-fib with RVR and eventually was put on a Cardizem drip maxed out at 15 mg, urine was obtained which showed too numerous white cells to count lab work was obtained which showed a a white blood cell count of 26 a creatinine of 2.3 and an elevated lactic acid of 3.2. Patient was bolused 30 L/kg normal saline. Patient was given 3.[address] scan of the abdomen pelvis was obtained which showed bilateral hydroureter process. Dr. Navarro was consulted and he has seen this patient before and remembered the patient has a ureteral stricture and since we do not have urology he he suggested that we transfer him due to his urosepsis and possible need for stent. Bety Hardy was called Dr. Dowling hospitalist was consulted who agreed to accept the patient in transfer for further evaluation and treatment. Differential Diagnosis UTI, A-fib with RVR, pneumonia, altered mental status, Medical Records I reviewed the patient's medical records. Lab Data I reviewed the patient's lab results. 05/20/23 15:18 05/20/23 15:18 Radiology Impressions Chest X-Ray 05/20/23 16:30 IMPRESSION: No acute findings. Abdomen/Pelvis CT 05/20/23 16:49 IMPRESSION: 1. Continued findings of bilateral hydroureteronephrosis when correlated with previous exam, with presence Villanueva catheter within the urinary bladder with today's exam with decompressed urinary bladder with continued mild perivesical stranding. 2. Zfru-ar-pzhardjo prostate enlargement again noted. 3. Couple of small nonobstructing right renal calculi again noted. No ureteral calculus. 4. Diverticulosis coli again noted, without findings of diverticulitis. Laboratory Results WBC 26.2 10^3/uL (4.0-10.0) H 05/20/23 15:18 RBC 4.35 10^6/uL (4.1-5.3) 05/20/23 15:18 Hgb 12.7 g/dL (11.7-16.6) 05/20/23 15:18 Hct 39.3 % (42.0-52.0) L 05/20/23 15:18 MCV 90.3 fl (80-94) 05/20/23 15:18 MCH 29.2 pg (28.0-34.0) 05/20/23 15:18 MCHC 32.3 g/dL (30.0-36.0) 05/20/23 15:18 RDW 13.7 % (12.1-15.1) 05/20/23 15:18 Plt Count 586 10^3/cmm (130-400) H 05/20/23 15:18 MPV 9.6 fL (7.4-10.4) 05/20/23 15:18 Neut % (Auto) 82.6 % 05/20/23 15:18 Lymph % (Auto) 7.6 % 05/20/23 15:18 [place] % (Auto) 7.8 % 05/20/23 15:18 Eos % (Auto) 0.8 % 05/20/23 15:18 Baso % (Auto) 0.5 % 05/20/23 15:18 Neut # (Auto) 21.67 10^3/uL (1.8-7.7) H 05/20/23 15:18 Lymph # (Auto) 2.0 10^3/uL (0.8-4.8) 05/20/23 15:18 [place] # (Auto) 2.0 10^3/uL (0.2-0.9) H 05/20/23 15:18 Eos # (Auto) 0.2 10^3/uL (0.0-0.8) 05/20/23 15:18 Baso # (Auto) 0.1 10^3/uL (0.0-0.1) 05/20/23 15:18 Nucleated RBC % (auto) 0 % 05/20/23 15:18 Nucleated RBCs # 0.0 /100WBC 05/20/23 15:18 Sodium 131 mmol/L (136-145) L 05/20/23 15:18 Potassium 4.2 mmol/L (3.5-5.1) 05/20/23 15:18 Chloride 94 mmol/L (98-107) L 05/20/23 15:18 Carbon Dioxide 20 mmol/L (22-29) L 05/20/23 15:18 Anion Gap 21.2 (5-19) H 05/20/23 15:18 BUN 30 mg/dL (8-23) H 05/20/23 15:18 Creatinine 2.3 mg/dL (0.7-1.2) H 05/20/23 15:18 GFR Calculation Not Reportable 05/20/23 15:18 Glucose 290 mg/dL (65-115) H 05/20/23 15:18 Calculated Osmolality 289 mOsm/kg (285-295) 05/20/23 15:18 Lactic Acid 3.2 mmol/L (0.5-2.2) H 05/20/23 17:50 Calcium 9.5 mg/dL (8.5-10.5) 05/20/23 15:18 Magnesium 1.9 mg/dL (1.7-2.3) 05/20/23 15:18 Total Bilirubin 0.4 mg/dL (0.15-1.2) 05/20/23 15:18 AST 15 U/L (0-40) 05/20/23 15:18 ALT 15 U/L (0-41) 05/20/23 15:18 Alkaline Phosphatase 98 U/L (40-130) 05/20/23 15:18 Troponin T Baseline 56 ng/L (0-15) H 05/20/23 15:18 Troponin T 120 Minute 44.08 ng/L (0-15) H 05/20/23 18:00 Delta Troponin T -11.92 ABS# (0-10) L 05/20/23 18:00 C-Reactive Protein 96.7 mg/L (0.0-4.9) H 05/20/23 15:18 Total Protein 6.7 g/dL (6.6-8.7) 05/20/23 15:18 Albumin 3.8 g/dL (3.5-5.2) 05/20/23 15:18 Globulin 2.9 g/dL (1.3-4.6) 05/20/23 15:18 Procalcitonin 0.35 ng/mL (0-0.5) 05/20/23 15:18 TSH 0.86 uIU/mL (0.27-4.20) 05/20/23 15:18 Urine Color Yellow (Yellow) 05/20/23 17:52 Urine Appearance Cloudy (CLEAR) A 05/20/23 17:52 Urine pH 5 (5-7) 05/20/23 17:52 Ur Specific [place] 1.015 (1.005-1.030) 05/20/23 17:52 Urine Protein 3+ (Negative) H 05/20/23 17:52 Urine Glucose (UA) 1+ (Normal) H 05/20/23 17:52 Urine Ketones Negative (Negative) 05/20/23 17:52 Urine Blood 3+ (Negative) H 05/20/23 17:52 Urine Nitrate Negative (Negative) 05/20/23 17:52 Urine Bilirubin Neg (Negative) 05/20/23 17:52 Urine Urobilinogen Norm mg/dL (Negative) 05/20/23 17:52 Ur Leukocyte Esterase 2+ (Negative) H 05/20/23 17:52 Urine RBC 0-4 /hpf (0-2) H 05/20/23 17:52 Urine WBC Too numerous to cnt /hpf (0-5) H 05/20/23 17:52 Ur Squamous Epith Cells None /hpf (0-5) 05/20/23 17:52 Amorphous Sediment Not Reportable 05/20/23 17:52 Urine Bacteria Trace /hpf (NONE) 05/20/23 17:52 Digoxin 0.9 ng/mL (0.6-1.2) 05/20/23 15:18 EKG Data EKG 1: I personally reviewed and interpreted this EKG as follows: EKG interpretation date: 05/20/23 EKG interpretation time: 14:44 Prior EKG tracings: not available for review Interpretation: EKG showed atrial fibrillation with RVR with a rate of 117 beats a minute, possible right bundle branch block, moderate T wave abnormality, QRS duration 130, QTc of 369 Computer generated interpretation: Chest X-Ray 05/20/23 16:30 IMPRESSION: No acute findings. Abdomen/Pelvis CT 05/20/23 16:49 IMPRESSION: 1. Continued findings of bilateral hydroureteronephrosis when correlated with previous exam, with presence Villanueva catheter within the urinary bladder with today's exam with decompressed urinary bladder with continued mild perivesical stranding. 2. Zxrt-xt-urhgekpu prostate enlargement again noted. 3. Couple of small nonobstructing right renal calculi again noted. No ureteral calculus. 4. Diverticulosis coli again noted, without findings of diverticulitis. EKG 2: I personally reviewed and interpreted this EKG as follows: EKG interpretation date: 05/20/23 EKG interpretation time: 15:01 Prior EKG tracings: available for review Interpretation: EKG showed A-fib with an RVR type pattern with a ventricular rate 148 beats a minute, right bundle branch block, QRS duration 126, QTc 347 Computer generated interpretation: Chest X-Ray 05/20/23 16:30 IMPRESSION: No acute findings. Abdomen/Pelvis CT 05/20/23 16:49 IMPRESSION: 1. Continued findings of bilateral hydroureteronephrosis when correlated with previous exam, with presence Villanueva catheter within the urinary bladder with today's exam with decompressed urinary bladder with continued mild perivesical stranding. 2. Dzjb-xd-cgaeeyfb prostate enlargement again noted. 3. Couple of small nonobstructing right renal calculi again noted. No ureteral calculus. 4. Diverticulosis coli again noted, without findings of diverticulitis. Discharge Plan Discharge Patient Disposition: Xfer Short-Term Hosp Clinical Impression: Atrial fibrillation with rapid ventricular response, Acute kidney injury, Acute alteration in mental status Leukocytosis Qualifiers: Leukocytosis type: unspecified Qualified Code(s): D72.829 - Elevated white blood cell count, unspecified Sepsis Qualifiers: Sepsis type: sepsis due to unspecified organism Sepsis acute organ dysfunction status: with acute organ dysfunction Severe sepsis acute organ dysfunction type: acute renal failure Acute renal failure type: with other specified pathological lesion Severe sepsis shock status: unspecified Qualified Code(s): A41.9 - Sepsis, unspecified organism Condition: Stable Referrals: Trisha Urena MD [Primary Care Provider] - Coding Level of Care Code ED Instrument Repair Specialist for Say Muñoz
[2023-05-20 15:39] LABS: Lactic Sepsis W/Reflex 3.2 mmol/L (0.5-2.2)
[2023-05-20] MEDS: dilTIAZem 100 MG in sodium chloride 0.9% (add-van) 100 ML IV (15:48)
[2023-05-20 15:52] LABS: Troponin(5th) Baseline 56 ng/L (0-15)
[2023-05-20 16:02] LABS: Alanine Aminotransferase 15 U/L (0-41); Albumin Level 3.8 g/dL (3.5-5.2); Alkaline Phosphatase 98 U/L (40-130); Aspartate Amino Transferase 15 U/L (0-40); Blood Urea Nitrogen 30 mg/dL (8-23); Calcium 9.5 mg/dL (8.5-10.5); Carbon Dioxide 20 mmol/L (22-29); Chloride 94 mmol/L (98-107); Globulin 2.9 g/dL (1.3-4.6); Glucose 290 mg/dL (65-115); Magnesium 1.9 mg/dL (1.7-2.3); Osmolality Calculated 289 mOsm/kg (285-295); Sodium 131 mmol/L (136-145); Thyroid Stimulating Hormone 0.86 uIU/mL (0.27-4.20); Total Bilirubin 0.4 mg/dL (0.15-1.2); Total Protein 6.7 g/dL (6.6-8.7)
[2023-05-20 16:05] LABS: Anion Gap 21.2 (5-19); Potassium 4.2 mmol/L (3.5-5.1)
--- NOTE | 2023-05-20 16:13 | PC.PHAR ---
PT BROUGHT IN BIG BAG OF MEDICATIONS- MEDS VERIFIED USING HOME MED LIST, [facility] MED LIST, BAG OF MEDICATIONS AND PT RELATIVE
[2023-05-20 16:16] LABS: Digoxin 0.9 ng/mL (0.6-1.2)
--- NOTE | 2023-05-20 16:30 | XRR_ITS ---
PROCEDURE INFORMATION: Exam: XR Chest Exam date and time: 05/20/2023 4:35 PM Age: 73 years old Clinical indication: Other: Leukocytosis, tachycardia TECHNIQUE: Imaging protocol: Radiologic exam of the chest. Views: 1 view. COMPARISON: CT chest abdpel [id number] 05/14/2023 2:17 AM FINDINGS: Lungs: Unremarkable. No consolidation. Pleural spaces: Unremarkable. No pleural effusion. No pneumothorax. Heart/Mediastinum: Unremarkable. No cardiomegaly. Bones/joints: Unremarkable. XR/XR chest 1V portable [id number] IMPRESSION: No acute findings.
--- NOTE | 2023-05-20 16:31 | PC.NURSE ---
CARDIAZEM TITRATED BY NATANAEL BRAVO AND DOCUMENTED ON MY COMPUTER
[2023-05-20] MEDS: rivaroxaban 10 mg Tablet 15 MG PO (16:44)
--- NOTE | 2023-05-20 16:49 | CTR_ITS ---
PROCEDURE INFORMATION: Exam: CT Abdomen And Pelvis Without Contrast Exam date and time: 05/20/2023 5:04 PM Age: 73 years old Clinical indication: Abdominal tenderness and bloating; Additional info: Leukocytosis, alfreda, sepsis, possible obstructive uropathy TECHNIQUE: Imaging protocol: Computed tomography of the abdomen and pelvis without contrast. Radiation optimization: All CT scans at this facility use at least one of these dose optimization techniques: automated exposure control; mA and/or kV adjustment per patient size (includes targeted exams where dose is matched to clinical indication); or iterative reconstruction. REPORTING DATA: Count of CT and Cardiac NM exams in prior 12 months: This patient has received 5 known CTs and 0 known cardiac nuclear medicine studies in the 12 months prior to the current study. COMPARISON: [place] [id number] 05/14/2023 2:17 AM RADIATION DOSE METRICS: Total DLP (mGy-cm): 1018.53 FINDINGS: Lungs: No significant infiltrate or effusion is seen within the visualized lung bases. Coronary arteries: Coronary artery calcification. Tiny pericardial effusion. Liver: Right lobe of the liver measures borderline. Small right hepatic cyst appears unchanged with prior exam. Liver appears unremarkable for unenhanced exam otherwise. Next spleen appears unremarkable unenhanced exam. Gallbladder and bile ducts: Question of minimal gallbladder sludge. Gallbladder appears unremarkable otherwise. No biliary ductal dilatation. Pancreas: Normal. No ductal dilation. Spleen: See Liver finding. Adrenal glands: Normal. No mass. Kidneys and ureters: A couple of small nonobstructing right renal calculi, as seen with prior exam. Bilateral moderate severity hydroureteronephrosis, as seen with prior exam. Stomach and bowel: Unremarkable. No obstruction. No mucosal thickening. Diverticulosis coli, particularly left and sigmoid colon. Inflammatory change or focal mesenteric stranding. Appendix: No evidence of appendicitis. Intraperitoneal space: Unremarkable. No free air. No significant fluid collection. Vasculature: Atherosclerotic vascular disease without significant aneurysmal dilatation of the abdominal aorta. Lymph nodes: Unremarkable. No enlarged lymph nodes. Urinary bladder: A Villanueva catheter seen within the urinary bladder which is suboptimally distended. Mild perivesical stranding as noted with. Reproductive: Kyav-zk-kresqlyu prostate enlargement, as noted with prior exam. Bones/joints: Degenerative bony changes particularly lumbar spine, as noted with prior exam. Soft tissues: Unremarkable. CT/CT abdomen pelvis wo con [id number] IMPRESSION: 1. Continued findings of bilateral hydroureteronephrosis when correlated with previous exam, with presence Villanueva catheter within the urinary bladder with today's exam with decompressed urinary bladder with continued mild perivesical stranding. 2. Wdtn-aa-mkjnsqhn prostate enlargement again noted. 3. Couple of small nonobstructing right renal calculi again noted. No ureteral calculus. 4. Diverticulosis coli again noted, without findings of diverticulitis.
[2023-05-20 17:09] LABS: Reflex Lactate Order REFLEX LACTIC ORDERD
[2023-05-20] MEDS: piperacillin-tazobactam 3.375 GM in sodium chloride 0.9% (plus) 50 ML IV (18:02)
--- NOTE | 2023-05-20 18:07 | P.HP_ITS ---
Providers/Chief Complaint Primary Care Provider: Trisha Urena MD Chief Complaint: sent by ri bp fluct History of Present Illness Raphael Deal is a 73 year old male type 2 diabetes mellitus, insulin- dependent type 2 diabetes mellitus BPH, history of urinary stent, history of atrial fibrillation who was recently admitted to [facility] for concerns for bladder outlet obstruction, concerns for UVJ stricture, RAI, cystitis, atrial fibrillation on Xarelto, on sotalol and digoxin who presents to [facility] due to low blood pressures, altered mental status, tachycardia. Currently patient is alert to person, not to place, not to time, he is able to follow some commands, such as smiling for me, wiggling his toes squeezing my fingers, but he is not able to provide a history he tells me he is feeling fine, most of the history was obtained by at bedside, who tells me that since his hospital discharge he has been doing well, before his hospital discharge his Villanueva catheter was changed, nothing out of the ordinary, but this morning, he was confused, was not acting appropriately, so she brought him to [facility] for evaluation and his blood pressures were in the 70s over 40s so patient was sent over to [facility] for evaluation. On admission patient was hypotensive, pale, diaphoretic, with altered mentation, found to have A-fib with RVR, placed on Cardizem drip, chronically at 15, heart rates in the 110's, has received a 2 L fluid bolus, blood pressures 110s over 40s, currently is on room air, afebrile, tachypneic respiratory rate 20. Patient does tell me that he was complaining of chills yesterday possible fevers, no nausea, no vomiting, he does tell me that his abdomen is hurting him, and he points to both sides of his abdomen. His DP PT pulses are diminished bilaterally, does have 2+ pitting edema, looks pale, diaphoretic, cap refill greater than 4 seconds, has mild mot tling of both feet, patient appears to be in septic shock on blood work his white blood cell count is 26,000, creatinine is 2.3, sodium 131, lactic acid 3.[address] Johnson as patient's chest x-ray does not show any evidence of pneumonia, and he is on room air, given his chronic Villanueva, and his recent hospitalization for concerns for bladder outlet obstruction I was highly concerned for the possibility of obstructive uropathy, UTI, possible pyelonephritis, possible nephrolithiasis as an etiology behind his septic shock. Advised Dr. Johnson to order a CT of the abdomen pelvis. Patient had a CT ordered, when patient returned back from CT I had extensive discussion with patient's family. Currently he is in A-fib, on Cardizem drip appears as if he is in septic shock I think the source is the urine, the question is is that does he have a component of obstructive uropathy if so he needs to have urology evaluation which we do not have here in the hospital. Given the morbidity and mortality associate with obstructive uropathy, and not having urology backup I would recommend for him to transfer to tertiary level center, patient's family voiced understanding, all questions answered, agreed to proceed. CAT scan findings as below 1. Continued findings of bilateral hydroureteronephrosis when correlated with previous exam, with presence Villanueva catheter within the urinary bladder with today's exam with decompressed urinary bladder with continued mild perivesical stranding. 2. Ckem-eb-urglbnur prostate enlargement again noted. 3. Couple of small nonobstructing right renal calculi again noted.? No ureteral calculus. 4. Diverticulosis coli again noted, without findings of diverticulitis.? -Given findings of bilateral hydroureteronephrosis, especially as his Villanueva catheter has been changed, and chronic bladder outlet obstruction has been ruled out as a possibility I am worried as possibly UVJ strictures or obstructive uropathy playing a role in patient's septic shock. -I concerning admit him here at [facility] place him on IV antibiotic therapy and monitor him -However if this truly is an obstructive process, I do not have urology backup and he has a significant risk of morbidity and mortality here in the hospital without urology backup -Thus in the best interest of the patient, I have recommended Dr. Johnson for patient to be transferred to tertiary level center 1 with urology backup and urology evaluation as this is patient's second hospitalization in the last week, there is been concerns for obstructive uropathy -Blood work also shows metabolic acidosis -Shows NSTEMI baseline troponin 56 likely type II, no complains of chest pain -And as his CAT scan shows bilateral moderate severity hydroureteronephrosis without a good etiology and has a Villanueva catheter has been changed in its role has been essentially ruled out -After discussing the risk and benefits of transfer, patient's family voiced understanding, all questions are, great to proceed -As he is here in the ER, Zosyn has been ordered -Continue Cardizem, he was given a dose of Xarelto -We will consider Levophed based on clinical progress -Order Pro-Vik, CRP -Order blood cultures -Order urine cultures ? Medications/Allergies Home Medications Medication Instructions Recorded Confirmed Last Taken Type gabapentin 800 mg tablet 800 mg PO TID 05/07/20 05/20/23 05/20/23 History water aerobics #1 ea 05/09/21 05/20/23 Unknown Rx albuterol sulfate 90 mcg/actuation 2 puff inhalation Q4H PRN 10/03/21 05/20/23 Unknown History aerosol inhaler (ProAir HFA) Shortness Of Breath fluticasone 100 mcg-salmeterol 50 1 inh inhalation BID 10/03/21 05/20/23 11/25/22 History mcg/dose blistr powdr for inhalation (Wixela Inhub) rosuvastatin 40 mg tablet 20 mg PO BEDTIME 12/04/21 05/20/23 05/19/23 History tamsulosin 0.4 mg capsule 0.4 mg PO BEDTIME 12/04/21 05/20/23 05/19/23 History blood-glucose meter,continuous #1 ea 12/18/21 05/20/23 Unknown Rx (Dexcom G6 [employer] 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) insulin aspart U-100 100 unit/mL 35 unit (0.35 mL) .Route TID #30 mL 03/25/22 05/20/23 05/20/23 Rx (3 mL) subcutaneous pen (Novolog FlexPen U-100 Insulin aspart) cholecalciferol (vitamin D3) 25 25 mcg PO DAILY 11/25/22 05/20/23 05/19/23 History mcg (1,000 unit) tablet (Vitamin D3) digoxin 250 mcg (0.25 mg) tablet 250 mcg PO DAILY 11/25/22 05/20/23 05/20/23 History metformin 500 mg tablet,extended 500 mg PO BID 11/25/22 05/20/23 05/20/23 History release 24 hr methocarbamol 750 mg tablet 750 mg PO QID PRN Muscle Spasm 11/25/22 05/20/23 05/20/23 History blood-glucose transmitter (Dexcom #1 ea 12/04/22 05/20/23 Unknown Rx G6 Transmitter device) coenzyme Q10 10 mg capsule 10 mg PO DAILY 02/03/23 05/20/23 05/19/23 History cranberry 500 mg capsule 500 mg PO DAILY 02/03/23 05/20/23 05/19/23 History cyanocobalamin (vitamin B-12) 1,000 mcg IM Q30D 02/03/23 05/20/23 Unknown History 1,000 mcg/mL injection solution multivitamin 1 tab PO DAILY 02/03/23 05/20/23 05/19/23 History nut.tx.gluc.intol,lac-free,soy 1 ea PO DAILY 02/03/23 05/20/23 05/20/23 History (Glucerna oral liquid) krill oil 500 mg capsule 500 mg PO DAILY 03/10/23 05/20/23 05/20/23 History amlodipine 10 mg tablet 10 mg PO DAILY #30 tabs 05/17/23 05/20/23 05/20/23 Rx cephalexin 500 mg capsule 500 mg PO BID #6 caps 05/17/23 05/20/23 05/20/23 Rx furosemide 20 mg tablet 20 mg PO BID PRN Edema #10 tabs 05/17/23 05/20/23 05/20/23 Rx insulin glargine 100 unit/mL (3 45 unit (0.45 mL) SUBCUT BID #15 mL 05/17/23 05/20/23 05/20/23 Rx mL) subcutaneous pen (Lantus Solostar U-100 Insulin) losartan 50 mg tablet 50 mg PO DAILY #30 tabs 05/17/23 05/20/23 05/20/23 Rx rivaroxaban 15 mg tablet (Xarelto) 15 mg PO QPM #30 tabs 05/17/23 05/20/23 05/19/23 Rx blood-glucose sensor (Dexcom G6 #9 ea 05/18/23 05/20/23 Unknown Rx Sensor device) galantamine 4 mg tablet 4 mg PO BID 05/20/23 05/20/23 05/19/23 History sotalol 160 mg tablet 80 mg PO BID 05/20/23 05/20/23 05/20/23 History Allergies Allergy/AdvReac Type Severity Reaction Status Date / Time No Known Allergies Allergy Verified 05/14/23 00:44 PFSH Acute PFSH: Medical History Alzheimer disease Anemia Atrial fibrillation Bacteriuria BPH loc w urin obs/LUTS Cervicalgia of oimhcvki-owjfvke-xukap region Chronic anticoagulation Taken off Xarelto secondary to hematuria Diabetes mellitus, type II Diabetic foot ulcer 08/2021 - treated with I&D, antibiotics and wound care clinic management 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 mellitus 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 mellitus Gait instability H/O prostate cancer Hematuria due to acute cystitis History of cardiovascular stress test 05/2021 normal EKG response, perfusion study without findings of ischemia History of Doppler ultrasound 08/2021 venous no DVT BLE 08/2021 arterial patent vessels, left posterior tibial may be less than 60% stenosis, left dorsalis pedis not visualized History of echocardiogram 05/2021 EF 65% History of electromyography 01/23 Interpretation: The study provides electrodiagnostic evidence for an axonal sensorimotor polyneuropathy based on small or absent CMAPs and SNAPs with denervation seen distally on EMG. The study is limited for evaluation of lumbar radiculopathy related to the patient's anticoagulated state. History of sleep study 02/22 limited sleep, no apnea noted but did have nocturnal hypoxemia, recommended to use nocturnal oxygen HTN (hypertension) previously on treatment for high blood pressure Intermittent self-catheterization of bladder due to urinary retention Left ureteral calculus Lumbar stenosis L2/3, L3/4, L4/L5, with radiculopathy right lower extremity Lumbar stenosis with neurogenic claudication Mild cognitive impairment with memory loss Obstructive pyelonephritis 09/2021 required ureteral stent placement Obstructive sleep apnea Refuses CPAP SARS-CoV-2 positive positive test 11/17/2021 symptoms weakness, hypoglycemia, altered mental status and low grade fever Yeast UTI Surgical History H/O esophagogastroduodenoscopy (10/30/21) 10/2021 pedunculated polyps removed from first portion of duodenum, otherwise normal History of back surgery History of colonoscopy (10/30/21) 11/2021 diverticulosis of sigmoid colon and internal hemorrhoids, sessile polyps removed History of laminectomy 03/25 bilateral with partial facetectomies at L2-3, L3-4, L4-[address] Smith History of pilonidal cyst Other postprocedural status history of radiofrequency ablation for back pain x 2 S/P appendectomy S/P tonsillectomy S/P ureteral stent placement (09/2021) subsequent removal Status post excisional debridement 08/2021 left foot Status post laser lithotripsy of ureteral calculus (11/06/21) Family History Grandmother Heart disease Hypertension Grandfather Hypertension MATERNAL Diabetes Mother No problems noted. Father No problems noted. 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 Weight last 48 hrs Weight 97.522 kg Physical Exam Const: COMMON NORMALS: no acute distress EXAM LIMITATIONS: altered mental status ORIENTATION/CONSCIOUSNESS: Yes awake and Yes oriented to person; not oriented to place and not oriented to time Resp: COMMON NORMALS: normal respiratory effort, No retractions, No use of accessory muscles and clear to auscultation bilaterally AUSCULTATION: clear to auscultation bilaterally Cardio: COMMON NORMALS: regular rate, regular rhythm, S1 normal heart sound present and S2 normal heart sound present RATE: regular rate RHYTHM: regular rhythm HEART SOUNDS: S1 normal heart sound present and S2 normal heart sound present GI: COMMON NORMALS: Normal to inspection, nondistended, normoactive bowel sounds present, Soft to palpation and non-tender : OTHER: Bilateral CVA tenderness Extremity: NARRATIVE EXTREMITY EXAM: 1+ pitting edema Data 05/20/23 15:18 05/20/23 15:18 A&P Assessment and plan (1) Atrial fibrillation with rapid ventricular response: (2) AMS (altered mental status): Qualifiers: Altered mental status type: somnolence Qualified Code(s): R40.0 - Somnolence (3) Septic shock: (4) Urinary tract infection: (5) Acute bilateral obstructive uropathy: (6) NSTEMI (non-ST elevated myocardial infarction): (7) Hydroureteronephrosis: (8) Metabolic acidosis: Attestations Medical Necessity Statement*: Patient requires transfer to tertiary level center for concerns for UTI, septic shock, bilateral hydroureteronephrosis, concerns for obstructive uropathy, metabolic acidosis, need for urology, A-fib with RVR, encephalopathy Coding Level of Care Code Critical Care >/= 30 minutes Critical care time (in minutes): 30 The high probability of a clinically significant, sudden or life threatening deterioration, as referenced in this documentation, required my full and direct attention, intervention and personal management. The critical care time shown is in addition to time spent performing any reported separately billable procedures and includes the following: [x] Data and vital sign review and interpretation [x ] Patient assessment, examination and intervention [x] Medication orders and management [x] Patient/Family updates as able [x] Care Coordination and Documentation. Diagnoses Atrial fibrillation with rapid ventricular response I48.91 AMS (altered mental status) R40.0 Altered mental status type: somnolence Septic shock A41.9; R65.21 Urinary tract infection N39.0 Acute bilateral obstructive uropathy N13.9 NSTEMI (non-ST elevated myocardial infarction) I21.4 Hydroureteronephrosis N13.30 Metabolic acidosis E87.20
[2023-05-20 18:27] LABS: Add Urine Microscopic? YES; Bilirubin Urine Neg (Negative); Blood Urine 3+ (Negative); Glucose Urine UA 1+ (Normal); Ketones Urine Negative (Negative); Leukocyte Esterase Urine 2+ (Negative); Nitrate Urine Negative (Negative); Protein Urine 3+ (Negative); Specific Gravity, Urine 1.015 (1.005-1.030); Urine Appearance Cloudy (CLEAR); Urine Color Yellow (Yellow); Urobilinogen Urine Norm (Negative); pH Urine 5 (5-7)
[2023-05-20 18:28] LABS: Add Urine Culture? Yes; Bacteria Urine TRACE /hpf; RBC Urine 0-4 /hpf (0-2); WBC Urine TOO NUMEROUS TO CNT /hpf (0-5)
[2023-05-20 18:30] LABS: Troponin 5 2HR 44.08 ng/L (0-15)
[2023-05-20 19:06] LABS: Lactic Sepsis W/Reflex 3.2 mmol/L (0.5-2.2)
[2023-05-20 19:09] LABS: C Reactive Protein 96.7 mg/L (0.0-4.9)
[2023-05-20 19:15] LABS: Procalcitonin 0.35 ng/mL (0-0.5)
[2023-05-20 20:33] LABS: Reflex Lactate Order REFLEX LACTIC ORDERD
--- NOTE | 2023-05-20 20:51 | ECG_ITS ---
[facility] Test Date: 2023-05-20 Pat Name: Raphael Deal Department: Room: Gender: Male Alterations Supervisor: : 1950 Requested By: Rob Johnson Order Number: [id number] Nilay MD: Aleks Narvaez M.D. Measurements Intervals [place] Rate: 107 P: 0 GA: 0 QRS: 86 QRSD: 128 T: 267 QT: 340 QTc: 455 Interpretive Statements ATRIAL FIBRILLATION WITH RAPID VENTRICULAR RESPONSE RIGHT BUNDLE BRANCH BLOCK [120+ ms QRS DURATION, UPRIGHT V1, 40+ ms S IN I/aVL/V4/V5/V6] MODERATE T-WAVE ABNORMALITY, CONSIDER INFERIOR ISCHEMIA [-0.1+ mV T-WAVE IN II/aVF] Compared to ECG 05/20/2023 15:01:00 T-wave abnormality now present Possible ischemia now present ST (T wave) deviation no longer present Electronically Signed On 05-21-2023 7:59:52 CDT by Aleks Narvaez M.D. [id number]
[2023-05-20 22:00] LABS: Lactic Acid level (Lactate) 1.8 mmol/L (0.5-2.2)
[2023-05-20 22:02] LABS: Troponin 5 6HR 47.91 ng/L (0-15)
[2023-05-20 22:09] LABS: Troponin 5 6HR Delta -8.09 ng/L (0-12)
[2023-05-20] MEDS: sodium chloride 0.9% 1,000 ML 150 ML IV (22:25)
--- NOTE | 2023-05-20 22:25 | PC.NURSE ---
CARDIZEM SWITCHED TO LEFT AC IV AND MAINTENANCE FLUIDS STARTED ON RIGHT AC IV
== END 2023-05-20 23:26 | disposition short-term general hospital (02) ==
PROVIDERS: Family Medicine; Emergency Provider Emergency Medicine; PCP Family Medicine
DX: A41.9 Sepsis, unspecified organism (principal); I48.20 Chronic atrial fibrillation, unspecified; N17.9 Acute kidney failure, unspecified; N20.0 Calculus of kidney; Z87.891 Personal history of nicotine dependence; G30.9 Alzheimer's disease, unspecified; F02.80 Dementia in other diseases classified elsewhere, unspecified severity, without behavioral disturbance, psychotic disturbance, mood disturbance, and anxiety; E11.9 Type 2 diabetes mellitus without complications; Z85.46 Personal history of malignant neoplasm of prostate; I10 Essential (primary) hypertension; Z87.442 Personal history of urinary calculi
CPT/HCPCS: 36415; 71045; 74176; 80053; 80162; 81001; 83605; 83735; 84145; 84443; 84484; 85025; 86140; 87040; 87086; 87106; 93005; 96365; 96366; 96367; 96375; 99285; J2543; J3490; J7030

== ENCOUNTER 2023-07-02 13:02 | Emergency (ER) | payer OTHER, SELFPAY ==
[2023-07-02 13:12] VITALS: BP 116/79; PULSE 116; RESP 18; TEMP 36.6; O2SAT 99; BMI 34.3
[2023-07-02 13:20] VITALS: BP 116/79; PULSE 107; RESP 18; O2SAT 98
[2023-07-02 13:33] LABS: Basophils # 0.1 10^3/uL (0.0-0.1); Basophils % 0.6 %; Eosinophils # 0.5 10^3/uL (0.0-0.8); Eosinophils % 4.4 %; Hematocrit 29.5 % (37-53); Lymphocytes # 2.3 10^3/uL (0.8-4.8); Lymphocytes % 19.4 %; Mean Corpuscular HGB Conc 31.5 g/dL (30-55); Mean Corpuscular Hemoglobin 28.5 pg (27-33); Mean Corpuscular Volume 90.5 fl (82-101); Mean Platelet Volume 9.6 fL (7.4-10.4); Monocytes # 0.8 10^3/uL (0.2-0.9); Monocytes % 6.4 %; Neutrophils % 68.9 %; Nucleated Red Blood Cells % 0 %; Platelet Count 400 10^3/cmm (157-399); Red Blood Count 3.26 10^6/uL (3.85-5.65); White Blood Count 12.04 10^3/uL (3.29-11.43)
[2023-07-02 13:50] LABS: Alanine Aminotransferase 9 U/L (0-41); Albumin Level 3.6 g/dL (3.5-5.2); Alkaline Phosphatase 81 U/L (40-130); Anion Gap 16.3 (5-19); Aspartate Amino Transferase 11 U/L (0-40); Blood Urea Nitrogen 32 mg/dL (8-23); Carbon Dioxide 25 mmol/L (22-29); Chloride 101 mmol/L (98-107); Globulin 3.1 g/dL (1.3-4.6); Glucose 271 mg/dL (65-115); Osmolality Calculated 302 mOsm/kg (285-295); Potassium 4.3 mmol/L (3.5-5.1); Sodium 138 mmol/L (136-145); Total Bilirubin 0.2 mg/dL (0.15-1.2); Total Protein 6.7 g/dL (6.6-8.7)
[2023-07-02 14:21] VITALS: BP 112/78; PULSE 124; RESP 18; O2SAT 99
--- NOTE | 2023-07-02 14:43 | PC.PHAR ---
pt is from [facility]-mar has gabapentin 800mg tid dced 06/18/23,lasix 40mg daily dced 06/30/23,robaxin 750mg qid dced 06/18/23,kcl er 20meq daily dced on 06/30/23-medications entered are from the pts mar from [facility]
[2023-07-02 15:15] LABS: Protein Urine 1+ (Negative); Urine Appearance Cloudy (CLEAR); Urine Color Amber (Yellow); pH Urine 6.5 (5-7)
[2023-07-02 15:16] LABS: Add Urine Microscopic? YES; Bilirubin Urine Neg (Negative); Blood Urine 3+ (Negative); Glucose Urine UA 4+ (Normal); Ketones Urine Negative (Negative); Leukocyte Esterase Urine 2+ (Negative); Nitrate Urine Positive (Negative); Urobilinogen Urine Norm (Negative)
[2023-07-02 15:22] LABS: Add Urine Culture? Yes; Bacteria Urine TRACE /hpf; Oval Fat Bodies Urine RARE /hpf; RBC Urine 40-50 /hpf (0-2); Squamous Epithelial Cell Urine 0-4 /hpf (0-5); WBC Urine 15-25 /hpf (0-5)
[2023-07-02 15:33] VITALS: BP 109/85; PULSE 107; RESP 18; O2SAT 97
--- NOTE | 2023-07-02 15:43 | ED_ITS ---
Documented by User: Stella Padilla, KNITTER MACHINE-C 07/02/23 15:56 HPI - Male Genitourinary General: Chief complaint: Urogenital-Male Stated complaint: uti Time Seen by Provider: 07/02/23 13:14 History of Present Illness: Patient is in today for concerns of urinary tract infection. Patient is brought in by his daughter. They report that patient was hospitalized at the end of May for septic shock. They report that just prior to that hospitalization the patient had been hospitalized and had been given a urinary catheter. They stated that then they were hospitalized at the end of May for the second time and transferred to [place] where they had a urologist. They reported that the urologist told them that he needed surgery on his prostate however they did not want to do it at that time because he had just started blood thinning medications for the A-fib. They report that the urologist told him he would need surgery within the next couple of weeks. The patient's daughter states that the patient went back to the skilled nursing and had his follow-up appointment with urology in [place] today however when they arrived the appointments have been messed up and they were not seen. She reports [facility] and his lab work showed that he is septic and he needed to go to the hospital. She reports that the skilled nursing physician said that they would just start him on antibiotics and he did not need to go to the hospital at this time. Patient's daughter reports that he completed the round of antibiotics but the patient is still reporting some discomfort with the catheter and some bloody looking urine. Patient states that he had tripped on the bag approximately 2 weeks ago and had blood in his urine and then it cleared up a few days ago and now it is back to bloody again. He denies fever but states that he has had chills. After they went to the urology appointment today and was not seen they decided to just come to the ER because they are very uncomfortable. Associated symptoms: Reports hematuria; Deny nausea or vomiting Review of Systems Const: Reports: chills; Denies: fever(s) Card: Reports: irregular heart rhythm; Denies: chest pain or palpitations Resp: Denies: dyspnea, productive cough or non-productive cough GI: Denies: abdominal pain, nausea or vomiting : Reports: hematuria and other (Indwelling catheter with some pain) [facility] Medical History Alzheimer disease Anemia Atrial fibrillation Bacteriuria BPH loc w urin obs/LUTS Cervicalgia of nabrumto-lidhgdl-otldl region Chronic anticoagulation Taken off Xarelto secondary to hematuria Diabetes mellitus, type II Diabetic foot ulcer 08/2021 - treated with I&D, antibiotics and wound care clinic management 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 mellitus 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 mellitus Gait instability H/O prostate cancer Hematuria due to acute cystitis History of cardiovascular stress test 05/2021 normal EKG response, perfusion study without findings of ischemia History of Doppler ultrasound 08/2021 venous no DVT BLE 08/2021 arterial patent vessels, left posterior tibial may be less than 60% stenosis, left dorsalis pedis not visualized History of echocardiogram 05/2021 EF 65% History of electromyography 01/23 Interpretation: The study provides electrodiagnostic evidence for an axonal sensorimotor polyneuropathy based on small or absent CMAPs and SNAPs with denervation seen distally on EMG. The study is limited for evaluation of lumbar radiculopathy related to the patient's anticoagulated state. History of sleep study 02/22 limited sleep, no apnea noted but did have nocturnal hypoxemia, recommended to use nocturnal oxygen HTN (hypertension) previously on treatment for high blood pressure Intermittent self-catheterization of bladder due to urinary retention Left ureteral calculus Lumbar stenosis L2/3, L3/4, L4/L5, with radiculopathy right lower extremity Lumbar stenosis with neurogenic claudication Mild cognitive impairment with memory loss Obstructive pyelonephritis 09/2021 required ureteral stent placement Obstructive sleep apnea Refuses CPAP SARS-CoV-2 positive positive test 11/17/2021 symptoms weakness, hypoglycemia, altered mental status and low grade fever Yeast UTI Surgical History H/O esophagogastroduodenoscopy (10/30/21) 10/2021 pedunculated polyps removed from first portion of duodenum, otherwise normal History of back surgery History of colonoscopy (10/30/21) 11/2021 diverticulosis of sigmoid colon and internal hemorrhoids, sessile polyps removed History of laminectomy 03/25 bilateral with partial facetectomies at L2-3, L3-4, L4-[address] Smith History of pilonidal cyst Other postprocedural status history of radiofrequency ablation for back pain x 2 S/P appendectomy S/P tonsillectomy S/P ureteral stent placement (09/2021) subsequent removal Status post excisional debridement 08/2021 left foot Status post laser lithotripsy of ureteral calculus (11/06/21) Family History Grandmother Heart disease Hypertension Grandfather Hypertension MATERNAL Diabetes Mother No problems noted. Father No problems noted. 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 Financial difficulty paying for basics: Very Hard Physical Exam Const: COMMON NORMALS: no acute distress, patient oriented x3 and alert Neck/C-Spine: COMMON NORMALS: no JVD Resp: COMMON NORMALS: normal respiratory effort, No use of accessory muscles and clear to auscultation bilaterally AUSCULTATION: clear to auscultation bilaterally Cardio: COMMON NORMALS: no JVD RATE: tachycardic RHYTHM: abnormal rhythm irregularly irregular GI: COMMON NORMALS: Normal to inspection, nondistended, normoactive bowel sounds present, Soft to palpation and non-tender PALPATION: Yes Soft to palpation : COMMON NORMALS: Yes no CVA tenderness BLADDER/KIDNEY EXAM: Yes catheter in place Catheter type (Male): urethral and Yes no CVA tenderness Back/Pelvis: COMMON NORMALS: no CVA tenderness Neuro: COMMON NORMALS: patient oriented x3 SENSORIUM/ORIENTATION: Yes alert Course Vital Signs: Vital signs: Vital Signs Temperature 97.8 F 07/02/23 13:12 Pulse Rate 107 H 07/02/23 15:33 Respiratory Rate 18 07/02/23 15:33 Blood Pressure 109/85 07/02/23 15:33 Pulse Oximetry 97 07/02/23 15:33 Oxygen Delivery Me thod Room Air 07/02/23 15:33 MDM - Male Medical Decision Making Patient was diagnosed with septic shock at the end of May and transferred to [place] for urine outlet obstruction concerns. White blood cell count at that time was 26,000. Also, at that time the patient was noted to be altered mental status. Today patient is alert and oriented x3. White blood cell count is 12,000 and he is afebrile with stable vital signs. Patient appears in no acute distress. He and his daughter are mostly concerned and feel like they are not getting to urology as they are supposed to. Urine does still show bacteria, hematuria. Positive glucose urea patient reports that his sugar is high he just had a very large lunch before coming here. Patient brings in previous labs in which his hemoglobin A1c was 9.5%. Patient recently completed a round of Augmentin antibiotic I am not sure what his last urine culture showed as it was done at an outside facility. Patient on adjusted creatinine clearance based on his weight is greater than 30 so no dose adjustment needs to be made to the Bactrim at this time. Placed patient on Bactrim twice a day x14 days. Await urine culture and sensitivity. Message to case management to help facilitate patient getting in with urology for ongoing monitoring and evaluation. Advised patient to return to the ER for new or worsening symptoms. Patient and daughter verbalized understanding and are agreeable with plan of care. Discharged home in stable condition Lab Data 07/02/23 13:25 07/02/23 13:25 Laboratory Results WBC 12.04 10^3/uL (3.29-11.43) H 07/02/23 13:25 RBC 3.26 10^6/uL (3.85-5.65) L 07/02/23 13:25 Hgb 9.30 g/dL (11.27-16.99) L 07/02/23 13:25 Hct 29.5 % (37-53) L 07/02/23 13:25 MCV 90.5 fl (82-101) 07/02/23 13:25 MCH 28.5 pg (27-33) 07/02/23 13:25 MCHC 31.5 g/dL (30-55) 07/02/23 13:25 RDW 15.0 % (12.1-15.1) 07/02/23 13:25 Plt Count 400 10^3/cmm (157-399) H 07/02/23 13:25 MPV 9.6 fL (7.4-10.4) 07/02/23 13:25 Neut % (Auto) 68.9 % 07/02/23 13:25 Lymph % (Auto) 19.4 % 07/02/23 13:25 [place] % (Auto) 6.4 % 07/02/23 13:25 Eos % (Auto) 4.4 % 07/02/23 13:25 Baso % (Auto) 0.6 % 07/02/23 13:25 Neut # (Auto) 8.30 10^3/uL (1.8-7.7) H 07/02/23 13:25 Lymph # (Auto) 2.3 10^3/uL (0.8-4.8) 07/02/23 13:25 [place] # (Auto) 0.8 10^3/uL (0.2-0.9) 07/02/23 13:25 Eos # (Auto) 0.5 10^3/uL (0.0-0.8) 07/02/23 13:25 Baso # (Auto) 0.1 10^3/uL (0.0-0.1) 07/02/23 13:25 Nucleated RBC % (auto) 0 % 07/02/23 13:25 Nucleated RBCs # 0.0 /100WBC 07/02/23 13:25 Sodium 138 mmol/L (136-145) 07/02/23 13:25 Potassium 4.3 mmol/L (3.5-5.1) 07/02/23 13:25 Chloride 101 mmol/L (98-107) 07/02/23 13:25 Carbon Dioxide 25 mmol/L (22-29) 07/02/23 13:25 Anion Gap 16.3 (5-19) 07/02/23 13:25 BUN 32 mg/dL (8-23) H 07/02/23 13:25 Creatinine 1.7 mg/dL (0.7-1.2) H 07/02/23 13:25 GFR Calculation Not Reportable 07/02/23 13:25 Glucose 271 mg/dL (65-115) H 07/02/23 13:25 Calculated Osmolality 302 mOsm/kg (285-295) H 07/02/23 13:25 Calcium 9.0 mg/dL (8.5-10.5) 07/02/23 13:25 Total Bilirubin 0.2 mg/dL (0.15-1.2) 07/02/23 13:25 AST 11 U/L (0-40) 07/02/23 13:25 ALT 9 U/L (0-41) 07/02/23 13:25 Alkaline Phosphatase 81 U/L (40-130) 07/02/23 13:25 Total Protein 6.7 g/dL (6.6-8.7) 07/02/23 13:25 Albumin 3.6 g/dL (3.5-5.2) 07/02/23 13:25 Globulin 3.1 g/dL (1.3-4.6) 07/02/23 13:25 Urine Color Radha (Yellow) 07/02/23 14:20 Urine Appearance Cloudy (CLEAR) A 07/02/23 14:20 Urine pH 6.5 (5-7) 07/02/23 14:20 Ur Specific [place] 1.010 (1.005-1.030) 07/02/23 14:20 Urine Protein 1+ (Negative) H 07/02/23 14:20 Urine Glucose (UA) 4+ (Normal) H 07/02/23 14:20 Urine Ketones Negative (Negative) 07/02/23 14:20 Urine Blood 3+ (Negative) H 07/02/23 14:20 Urine Nitrate Positive (Negative) H 07/02/23 14:20 Urine Bilirubin Neg (Negative) 07/02/23 14:20 Urine Urobilinogen Norm mg/dL (Negative) 07/02/23 14:20 Ur Leukocyte Esterase 2+ (Negative) H 07/02/23 14:20 Urine RBC 40-50 /hpf (0-2) H 07/02/23 14:20 Urine WBC 15-25 /hpf (0-5) H 07/02/23 14:20 Ur Squamous Epith Cells 0-4 /hpf (0-5) H 07/02/23 14:20 Amorphous Sediment Not Reportable 07/02/23 14:20 Urine Bacteria Trace /hpf (NONE) 07/02/23 14:20 Urine Mucus None /hpf 07/02/23 14:20 Ur Oval Fat Bodies Rare /hpf 07/02/23 14:20 No radiology studies performed this visit Discharge Plan Discharge Patient Disposition: Home Clinical Impression: Urinary tract infection Condition: Stable Prescriptions: New Bactrim 400-80 mg tablet 1 tab PO Q12H 14 Days Qty: 28 0RF No Action (DME) Dexcom G6 Helicopter Repairer Misc See Rx Instructions .Route Qty: 1 0RF Rx Instructions: Check BS 4-6 times a day. (DME) water aerobics See Rx Instructions .Route .MEDSUPPLY Qty: 1 0RF Rx Instructions: As directed (DME) Dexcom G6 Sensor Device See Rx Instructions .ROUTE .COMPLEX Qty: 9 0RF Dose Instruction: USE 1 SENSOR UNDER THE SKIN EVERY 10 DAYS CHANGE SENSOR/SITE EVERY 10 DAYS. CONTACT [employer] AT FOR REPLACEMENT OF DAMAGED/MALFUNCTIONING SENSORS. Rx Instructions: as directed (DME) Dexcom G6 Transmitter Device See Rx Instructions .Route Qty: 1 3RF Rx Instructions: Change every 90 days. fluticasone propion-salmeterol [Wixela Inhub] 100-50 mcg/dose Blister With Device 1 inh INHALATION BID albuterol sulfate [ProAir HFA] 90 mcg/actuation HFA aerosol inhaler 2 puff INHALATION Q4H PRN (Reason: Shortness Of Breath) rosuvastatin 40 mg tablet 40 mg PO BEDTIME@19 tamsulosin 0.4 mg capsule 0.4 mg PO BEDTIME@19 methocarbamol 750 mg tablet 750 mg PO BID Coricidin HBP Chest Theron-Cough 10-200 mg Capsule 1 cap PO DAILY@07 gabapentin 400 mg Capsule 400 mg PO TID Vitamin B-12 1,000 mcg Tablet 1,000 mcg PO DAILY@07 Dulcolax (bisacodyl) 10 mg Suppository [address] DAILY PRN (Reason: Constipation) Rx Instructions: if no bm x 3 days Colace 100 mg Capsule 100 mg PO BID PRN (Reason: Constipation) diltiazem HCl 60 mg tablet 60 mg PO Q8H Flonase 50 mcg/actuation [place],Suspension 2 spray INTRANASAL DAILY@07 Rx Instructions: administer into each nostril finasteride 5 mg Tablet 5 mg PO DAILY@07 coenzyme Q10 30 mg Capsule 30 mg PO DAILY@07 menthol-zinc oxide [Calmoseptine] 0.44-20.6 % ointment See Rx Instructions .ROUTE .COMPLEX Rx Instructions: apply to bilateral buttocks every shift for prevention Tylenol 325 mg Tablet 650 mg PO Q6H PRN (Reason: Pain) metoprolol tartrate 100 mg Tablet 100 mg PO BID@07,19 Thera Tablet 1 tab PO DAILY@07 melatonin 1 mg Tablet 1 mg PO BEDTIME@1930 Vitamin D3 25 mcg (1,000 unit) Tablet 25 mcg PO DAILY@07 Xarelto 20 mg Tablet 20 mg PO DAILY@16 Rx Instructions: must administer with evening meal losartan 50 mg tablet 50 mg PO DAILY@07 Novolog FlexPen U-100 Insulin 100 unit/mL (3 mL) insulin pen 35 unit SUBCUT TID Rx Instructions: before meals insulin glargine [Lantus Solostar U-100 Insulin] 100 unit/mL (3 mL) insulin pen 45 unit SUBCUT BID Qty: 15 0RF galantamine 4 mg tablet 4 mg PO BID Discharge Orders: Discharge ED (Routine); Ordered 07/02/23 Ordered By: Stella Padilla Referrals: Trisha Urena MD [Primary Care Provider] - Discharge Diet: Usual diet Discharge Activity: Resume usual activity Patient Instructions: Opioid Safety, Pain Management Activity Restrictions/Additional Instructions: Follow-up with urology. Take antibiotics as directed. Return to the emergency department for any new or worsening symptoms. Coding Level of Care Code ED [employer] for [employer] Wanda Documented by User: Fermin Mijares DO 07/03/23 06:30 HPI - Male Genitourinary General: Chief complaint: Urogenital-Male Stated complaint: uti Time Seen by Provider: 07/02/23 13:14 PFSH ED PFSH: Medical History Alzheimer disease Anemia Atrial fibrillation Bacteriuria BPH loc w urin obs/LUTS Cervicalgia of icshskdp-iocbbft-mqnfv region Chronic anticoagulation Taken off Xarelto secondary to hematuria Diabetes mellitus, type II Diabetic foot ulcer 08/2021 - treated with I&D, antibiotics and wound care clinic management 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 mellitus 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 mellitus Gait instability H/O prostate cancer Hematuria due to acute cystitis History of cardiovascular stress test 05/2021 normal EKG response, perfusion study without findings of ischemia History of Doppler ultrasound 08/2021 venous no DVT BLE 08/2021 arterial patent vessels, left posterior tibial may be less than 60% stenosis, left dorsalis pedis not visualized History of echocardiogram 05/2021 EF 65% History of electromyography 01/23 Interpretation: The study provides electrodiagnostic evidence for an axonal sensorimotor polyneuropathy based on small or absent CMAPs and SNAPs with denervation seen distally on EMG. The study is limited for evaluation of lumbar radiculopathy related to the patient's anticoagulated state. History of sleep study 02/22 limited sleep, no apnea noted but did have nocturnal hypoxemia, recommended to use nocturnal oxygen HTN (hypertension) previously on treatment for high blood pressure Intermittent self-catheterization of bladder due to urinary retention Left ureteral calculus Lumbar stenosis L2/3, L3/4, L4/L5, with radiculopathy right lower extremity Lumbar stenosis with neurogenic claudication Mild cognitive impairment with memory loss Obstructive pyelonephritis 09/2021 required ureteral stent placement Obstructive sleep apnea Refuses CPAP SARS-CoV-2 positive positive test 11/17/2021 symptoms weakness, hypoglycemia, altered mental status and low grade fever Yeast UTI Surgical History H/O esophagogastroduodenoscopy (10/30/21) 10/2021 pedunculated polyps removed from first portion of duodenum, otherwise normal History of back surgery History of colonoscopy (10/30/21) 11/2021 diverticulosis of sigmoid colon and internal hemorrhoids, sessile polyps removed History of laminectomy 03/25 bilateral with partial facetectomies at L2-3, L3-4, L4-[address] Smith History of pilonidal cyst Other postprocedural status history of radiofrequency ablation for back pain x 2 S/P appendectomy S/P tonsillectomy S/P ureteral stent placement (09/2021) subsequent removal Status post excisional debridement 08/2021 left foot Status post laser lithotripsy of ureteral calculus (02/02/22) Family History Grandmother Heart disease Hypertension Grandfather Hypertension MATERNAL Diabetes Mother No problems noted. Father No problems noted. 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 White blood cell count at t hat time was 26,000. Also, at that time the patient was noted to be altered mental status. Today patient is alert and oriented x3. White blood cell count is 12,000 and he is afebrile with stable vital signs. Patient appears in no acute distress. He and his daughter are mostly concerned and feel like they are not getting to urology as they are supposed to. Urine does still show bacteria, hematuria. Positive glucose urea patient reports that his sugar is high he just had a very large lunch before coming here. Patient brings in previous labs in which his hemoglobin A1c was 9.5%. Patient recently completed a round of Augmentin antibiotic I am not sure what his last urine culture showed as it was done at an outside facility. Patient on adjusted creatinine clearance based on his weight is greater than 30 so no dose adjustment needs to be made to the Bactrim at this time. Placed patient on Bactrim twice a day x14 days. Await urine culture and sensitivity. Message to case management to help facilitate patient getting in with urology for ongoing monitoring and evaluation. Advised patient to return to the ER for new or worsening symptoms. Patient and daughter verbalized understanding and are agreeable with plan of care. Discharged home in stable condition Chart reviewed and patient discussed with midlevel. creatinine 1.7. Nursing staff has been asked to contact the patient DC Bactrim and instead placed on Cipro 500 twice daily for 7 days Medical Records I reviewed the patient's medical records. Lab Data I reviewed the patient's lab results. 07/02/23 13:25 07/02/23 13:25 Laboratory Results WBC 12.04 10^3/uL (3.29-11.43) H 07/02/23 13:25 RBC 3.26 10^6/uL (3.85-5.65) L 07/02/23 13:25 Hgb 9.30 g/dL (11.27-16.99) L 07/02/23 13:25 Hct 29.5 % (37-53) L 07/02/23 13:25 MCV 90.5 fl (82-101) 07/02/23 13:25 MCH 28.5 pg (27-33) 07/02/23 13:25 MCHC 31.5 g/dL (30-55) 07/02/23 13:25 RDW 15.0 % (12.1-15.1) 07/02/23 13:25 Plt Count 400 10^3/cmm (157-399) H 07/02/23 13:25 MPV 9.6 fL (7.4-10.4) 07/02/23 13:25 Neut % (Auto) 68.9 % 07/02/23 13:25 Lymph % (Auto) 19.4 % 07/02/23 13:25 [place] % (Auto) 6.4 % 07/02/23 13:25 Eos % (Auto) 4.4 % 07/02/23 13:25 Baso % (Auto) 0.6 % 07/02/23 13:25 Neut # (Auto) 8.30 10^3/uL (1.8-7.7) H 07/02/23 13:25 Lymph # (Auto) 2.3 10^3/uL (0.8-4.8) 07/02/23 13:25 [place] # (Auto) 0.8 10^3/uL (0.2-0.9) 07/02/23 13:25 Eos # (Auto) 0.5 10^3/uL (0.0-0.8) 07/02/23 13:25 Baso # (Auto) 0.1 10^3/uL (0.0-0.1) 07/02/23 13:25 Nucleated RBC % (auto) 0 % 07/02/23 13:25 Nucleated RBCs # 0.0 /100WBC 07/02/23 13:25 Sodium 138 mmol/L (136-145) 07/02/23 13:25 Potassium 4.3 mmol/L (3.5-5.1) 07/02/23 13:25 Chloride 101 mmol/L (98-107) 07/02/23 13:25 Carbon Dioxide 25 mmol/L (22-29) 07/02/23 13:25 Anion Gap 16.3 (5-19) 07/02/23 13:25 BUN 32 mg/dL (8-23) H 07/02/23 13:25 Creatinine 1.7 mg/dL (0.7-1.2) H 07/02/23 13:25 GFR Calculation Not Reportable 07/02/23 13:25 Glucose 271 mg/dL (65-115) H 07/02/23 13:25 Calculated Osmolality 302 mOsm/kg (285-295) H 07/02/23 13:25 Calcium 9.0 mg/dL (8.5-10.5) 07/02/23 13:25 Total Bilirubin 0.2 mg/dL (0.15-1.2) 07/02/23 13:25 AST 11 U/L (0-40) 07/02/23 13:25 ALT 9 U/L (0-41) 07/02/23 13:25 Alkaline Phosphatase 81 U/L (40-130) 07/02/23 13:25 Total Protein 6.7 g/dL (6.6-8.7) 07/02/23 13:25 Albumin 3.6 g/dL (3.5-5.2) 07/02/23 13:25 Globulin 3.1 g/dL (1.3-4.6) 07/02/23 13:25 Urine Color Radha (Yellow) 07/02/23 14:20 Urine Appearance Cloudy (CLEAR) A 07/02/23 14:20 Urine pH 6.5 (5-7) 07/02/23 14:20 Ur Specific [place] 1.010 (1.005-1.030) 07/02/23 14:20 Urine Protein 1+ (Negative) H 07/02/23 14:20 Urine Glucose (UA) 4+ (Normal) H 07/02/23 14:20 Urine Ketones Negative (Negative) 07/02/23 14:20 Urine Blood 3+ (Negative) H 07/02/23 14:20 Urine Nitrate Positive (Negative) H 07/02/23 14:20 Urine Bilirubin Neg (Negative) 07/02/23 14:20 Urine Urobilinogen Norm mg/dL (Negative) 07/02/23 14:20 Ur Leukocyte Esterase 2+ (Negative) H 07/02/23 14:20 Urine RBC 40-50 /hpf (0-2) H 07/02/23 14:20 Urine WBC 15-25 /hpf (0-5) H 07/02/23 14:20 Ur Squamous Epith Cells 0-4 /hpf (0-5) H 07/02/23 14:20 Amorphous Sediment Not Reportable 07/02/23 14:20 Urine Bacteria Trace /hpf (NONE) 07/02/23 14:20 Urine Mucus None /hpf 07/02/23 14:20 Ur Oval Fat Bodies Rare /hpf 07/02/23 14:20 Discharge Plan Discharge Patient Disposition: Home Clinical Impression: Urinary tract infection Condition: Stable Prescriptions: New Bactrim 400-80 mg tablet 1 tab PO Q12H 14 Days Qty: 28 0RF No Action (DME) SeamBLiSS G6 Helicopter Repairer Misc See Rx Instructions .Route Qty: 1 0RF Rx Instructions: Check BS 4-6 times a day. (DME) water aerobics See Rx Instructions .Route .MEDSUPPLY Qty: 1 0RF Rx Instructions: As directed (DME) SeamBLiSS G6 Sensor Device See Rx Instructions .ROUTE .COMPLEX Qty: 9 0RF Dose Instruction: USE 1 SENSOR UNDER THE SKIN EVERY 10 DAYS CHANGE SENSOR/SITE EVERY 10 DAYS. CONTACT [employer] AT FOR REPLACEMENT OF DAMAGED/MALFUNCTIONING SENSORS. Rx Instructions: as directed (DME) SeamBLiSS G6 Transmitter Device See Rx Instructions .Route Qty: 1 3RF Rx Instructions: Change every 90 days. fluticasone propion-salmeterol [Wixela Inhub] 100-50 mcg/dose Blister With Device 1 inh INHALATION BID albuterol sulfate [ProAir HFA] 90 mcg/actuation HFA aerosol inhaler 2 puff INHALATION Q4H PRN (Reason: Shortness Of Breath) rosuvastatin 40 mg tablet 40 mg PO BEDTIME@19 tamsulosin 0.4 mg capsule 0.4 mg PO BEDTIME@19 methocarbamol 750 mg tablet 750 mg PO BID Coricidin HBP Chest Theron-Cough 10-200 mg Capsule 1 cap PO DAILY@07 gabapentin 400 mg Capsule 400 mg PO TID Vitamin B-12 1,000 mcg Tablet 1,000 mcg PO DAILY@07 Dulcolax (bisacodyl) 10 mg Suppository [address] DAILY PRN (Reason: Constipation) Rx Instructions: if no bm x 3 days Colace 100 mg Capsule 100 mg PO BID PRN (Reason: Constipation) diltiazem HCl 60 mg tablet 60 mg PO Q8H Flonase 50 mcg/actuation [place],Suspension 2 spray INTRANASAL DAILY@07 Rx Instructions: administer into each nostril finasteride 5 mg Tablet 5 mg PO DAILY@07 coenzyme Q10 30 mg Capsule 30 mg PO DAILY@07 menthol-zinc oxide [Calmoseptine] 0.44-20.6 % ointment See Rx Instructions .ROUTE .COMPLEX Rx Instructions: apply to bilateral buttocks every shift for prevention Tylenol 325 mg Tablet 650 mg PO Q6H PRN (Reason: Pain) metoprolol tartrate 100 mg Tablet 100 mg PO BID@07, Thera Tablet 1 tab PO DAILY@07 melatonin 1 mg Tablet 1 mg PO BEDTIME@1930 Vitamin D3 25 mcg (1,000 unit) Tablet 25 mcg PO DAILY@07 Xarelto 20 mg Tablet 20 mg PO DAILY@16 Rx Instructions: must administer with evening meal losartan 50 mg tablet 50 mg PO DAILY@07 Novolog FlexPen U-100 Insulin 100 unit/mL (3 mL) insulin pen 35 unit SUBCUT TID Rx Instructions: before meals insulin glargine [Lantus Solostar U-100 Insulin] 100 unit/mL (3 mL) insulin pen 45 unit SUBCUT BID Qty: 15 0RF galantamine 4 mg tablet 4 mg PO BID Discharge Orders: Discharge ED (Routine); Ordered 07/02/23 Ordered By: Stella Padilla Referrals: Trisha Urena MD [Primary Care Provider] - Discharge Diet: Usual diet Discharge Activity: Resume usual activity Patient Instructions: Opioid Safety, Pain Management Activity Restrictions/Additional Instructions: Follow-up with urology. Take antibiotics as directed. Return to the emergency department for any new or worsening symptoms. 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
--- NOTE | 2023-07-05 16:30 | PC.SOCIAL ---
Urology Referral. Referral faxed to [facility] in [place]. Clinic will contact patient with appt date/time. Clinic phone number [phone].
== END 2023-07-02 16:07 | disposition home or self-care (01) ==
PROVIDERS: Emergency Provider Nurse Practitioner Family; PCP Family Medicine
DX: N39.0 Urinary tract infection, site not specified (principal); Z79.4 Long term (current) use of insulin; Z87.891 Personal history of nicotine dependence; G30.9 Alzheimer's disease, unspecified; F02.80 Dementia in other diseases classified elsewhere, unspecified severity, without behavioral disturbance, psychotic disturbance, mood disturbance, and anxiety; E11.9 Type 2 diabetes mellitus without complications; Z85.46 Personal history of malignant neoplasm of prostate; Z87.440 Personal history of urinary (tract) infections; I10 Essential (primary) hypertension
CPT/HCPCS: 36415; 80053; 81001; 85025; 87077; 87086; 87186; 99283

== ENCOUNTER 2023-07-05 23:32 | Emergency (ER) | payer OTHER, SELFPAY ==
[2023-07-05 23:36] VITALS: BP 95/56; PULSE 103; RESP 30; TEMP 37.4; O2SAT 96
--- NOTE | 2023-07-05 23:41 | XRR_ITS ---
PROCEDURE INFORMATION: Exam: XR Chest Exam date and time: 07/05/2023 11:48 PM Age: 73 years old Clinical indication: Fever; Additional info: Fever, hypotension TECHNIQUE: Imaging protocol: Radiologic exam of the chest. Views: 1 view. COMPARISON: CR XR chest 1V portable [id number] 05/20/2023 4:35 PM FINDINGS: Lungs: No consolidation, mass, or pulmonary edema. Pleural spaces: Unremarkable. No pleural effusion. No pneumothorax. Heart/Mediastinum: Cardiomediastinal silhouette is stable and unremarkable. Bones/joints: No acute osseous abnormality. XR/XR chest 1V portable [id number] IMPRESSION: No acute findings.
--- NOTE | 2023-07-05 23:44 | ECG_ITS ---
[facility] Test Date: 2023-07-05 Pat Name: Raphael Deal Department: Room: Gender: Male Sap Senior Developer: : 1950 Requested By: Joaquim Lindsey Order Number: [id number] Nilay MD: Aleks Narvaez M.D. Measurements Intervals [place] Rate: 105 P: 0 [place]: 0 QRS: 95 QRSD: 119 T: 34 QT: 336 QTc: 445 Interpretive Statements ATRIAL FIBRILLATION WITH RAPID VENTRICULAR RESPONSE WITH ABERRANT CONDUCTION OR VENTRICULAR PREMATURE COMPLEXES BORDERLINE RIGHT AXIS DEVIATION [QRS AXIS > 90] LOW QRS VOLTAGE IN PRECORDIAL LEADS [QRS DEFLECTION < 1.0 mV IN CHEST LEADS] INCOMPLETE RIGHT BUNDLE BRANCH BLOCK [90+ ms QRS DURATION, TERMINAL R IN V1/V2, 40+ ms S IN I/aVL/V4/V5/V6] Compared to ECG 05/20/2023 20:55:25 Ventricular premature complex(es) now present Aberrant conduction of supraventricular beat(s) now present Low QRS voltage now present Incomplete right bundle-branch block now present Right bundle-branch block no longer present T-wave abnormality no longer present Possible ischemia no longer present Electronically Signed On 07-06-2023 8:20:33 CDT by Aleks Narvaez M.D. [id number]
[2023-07-06] VITALS (8 sets, daily range): BP systolic 92–126; BP diastolic 55–81; PULSE 101–114; RESP 20–33; TEMP 36.5; O2SAT 93–100
[2023-07-06] MEDS: cefTRIAXone 1,000 MG in sodium chloride 0.9% (plus) 50 ML 100 MG IV (00:14)
[2023-07-06] MEDS: sodium chloride 0.9% 1,000 ML 999 ML IV ×3 (00:14→02:20)
--- NOTE | 2023-07-06 00:18 | CTR_ITS ---
PROCEDURE INFORMATION: Exam: CT Abdomen And Pelvis Without Contrast Exam date and time: 07/06/2023 1:08 AM Age: 73 years old Clinical indication: Other: UTI; Additional info: UTI HX of hydronephrosis TECHNIQUE: Imaging protocol: Computed tomography of the abdomen and pelvis without contrast. Radiation optimization: All CT scans at this facility use at least one of these dose optimization techniques: automated exposure control; mA and/or kV adjustment per patient size (includes targeted exams where dose is matched to clinical indication); or iterative reconstruction. REPORTING DATA: Count of CT and Cardiac NM exams in prior 12 months: This patient has received 6 known CTs and 0 known cardiac nuclear medicine studies in the 12 months prior to the current study. COMPARISON: CT abdomen pelvis wo con [id number] 05/20/2023 5:04 PM RADIATION DOSE METRICS: Total DLP (mGy-cm): 1070.16 FINDINGS: Lungs: Minimal right basilar atelectasis. Coronary arteries: Severe coronary artery calcifications. Liver: Hepatic steatosis. Tiny calcified granuloma in the right lobe of the liver. Gallbladder and bile ducts: A few small calcified gallstones with new gallbladder wall edema. No biliary dilatation. Pancreas: Normal pancreas. No ductal dilation. Spleen: Normal spleen. No splenomegaly. Adrenal glands: Adrenal glands are normal. Kidneys and ureters: Mild right hydronephrosis and cwfw-ts-sqhbgstb hydroureter, slightly improved from 05/20/2023. Moderate left hydronephrosis and hydroureter, slightly increased from 05/20/2023. Couple of stable small nonobstructive calculi in the right kidney. No obstructive calculi on either side. Stomach and bowel: Colonic diverticulosis without evidence of diverticulitis. No bowel wall thickening. No evidence of bowel obstruction. Appendix: Normal appendix. Intraperitoneal space: Trace free fluid. No free air. Vasculature: No abdominal aortic aneurysm. Scattered atherosclerotic calcifications. Lymph nodes: No adenopathy. Urinary bladder: Urinary bladder completely decompressed, with a Villanueva catheter present. Reproductive: Unremarkable as visualized. Bones/joints: No acute fracture. Stable chronic degenerative changes in the lumbar spine. Soft tissues: Mild diffuse subcutaneous edema. Small fat containing bilateral inguinal hernias. CT/CT kidney stone [id number] IMPRESSION: 1. A few small calcified gallstones with new gallbladder wall edema. Correlate for acute cholecystitis. 2. No biliary dilatation. 3. Mild right hydronephrosis and msaq-ji-lcdwwmtb hydroureter, slightly improved from 05/20/2023. 4. Moderate left hydronephrosis and hydroureter, slightly increased from 05/20/2023. 5. Couple of stable small nonobstructive calculi in the right kidney. No obstructive calculi on either side. 6. Urinary bladder completely decompressed, with a Villanueva catheter present. 7. Hepatic steatosis. 8. Colonic diverticulosis without evidence of diverticulitis. 9. Trace free fluid. 10. Small fat containing bilateral inguinal hernias.
[2023-07-06 00:30] LABS: Basophils # 0.1 10^3/uL (0.0-0.1); Basophils % 0.4 %; Eosinophils # 0.4 10^3/uL (0.0-0.8); Eosinophils % 2.3 %; Hematocrit 29.7 % (37-53); Lymphocytes # 2.3 10^3/uL (0.8-4.8); Lymphocytes % 14.4 %; Mean Corpuscular Hemoglobin 27.8 pg (27-33); Mean Corpuscular Volume 89.7 fl (82-101); Mean Platelet Volume 10.1 fL (7.4-10.4); Monocytes # 1.7 10^3/uL (0.2-0.9); Monocytes % 10.6 %; Neutrophils # 11.26 10^3/uL (1.8-7.7); Neutrophils % 71.9 %; Nucleated Red Blood Cells % 0 %; Platelet Count 329 10^3/cmm (157-399); Red Blood Count 3.31 10^6/uL (3.85-5.65); Red Cell Distribution Width 15.4 % (12.1-15.1); White Blood Count 15.67 10^3/uL (3.29-11.43)
--- NOTE | 2023-07-06 00:44 | XRR_ITS ---
PROCEDURE INFORMATION: Exam: XR Chest Exam date and time: 07/06/2023 12:58 AM Age: 73 years old Clinical indication: Other vascular access device placement or adjustment; Central line, non-tunnelled; Additional info: Line placement TECHNIQUE: Imaging protocol: Radiologic exam of the chest. Views: 1 view. COMPARISON: CR (CHEST, ) 07/05/2023 11:48 PM FINDINGS: Tubes, catheters and devices: Status post right IJ central venous line placement, with tip projecting near the cavoatrial junction. Lungs: Unremarkable. No consolidation. Pleural spaces: Unremarkable. No pleural effusion. No pneumothorax. Heart/Mediastinum: Unremarkable. No cardiomegaly. Bones/joints: Unremarkable. XR/XR chest 1V portable [id number] IMPRESSION: Status post right IJ central venous line placement, with tip projecting near the cavoatrial junction.
--- NOTE | 2023-07-06 00:52 | W.ED.MALEGU ---
HPI - Male Genitourinary General: Chief complaint: Urogenital-Male Stated complaint: possible sepsis Time Seen by Provider: 07/05/23 23:36 History of Present Illness: 73-year-old male with an indwelling Rankin catheter. He has a history of urosepsis last month. He also has a history of atrial fibrillation. He has been in [facility] recovering from urosepsis. He presents with a fever that started today. Mom mental status changes. He is having chills and body aches. Associated symptoms: Deny nausea or vomiting Review of Systems Const: Reports: fever(s), chills and body aches Eyes: Denies: change in vision ENMT: Denies: throat pain Card: Denies: chest pain or swelling of feet/ankles Resp: Denies: dyspnea, productive cough or non-productive cough GI: Denies: abdominal pain, nausea or vomiting : Reports: difficulty urinating Neuro: Reports: confusion; Denies: headache(s) PFS ED PFSH: Medical History Alzheimer disease Anemia Atrial fibrillation Bacteriuria BPH loc w urin obs/LUTS Cervicalgia of ahkyqrho-bybqcks-dvzeb region Chronic anticoagulation Taken off Xarelto secondary to hematuria Diabetes mellitus, type II Diabetic foot ulcer 08/2021 - treated with I&D, antibiotics and wound care clinic management 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 mellitus 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 mellitus Gait instability H/O prostate cancer Hematuria due to acute cystitis History of cardiovascular stress test 05/2021 normal EKG response, perfusion study without findings of ischemia History of Doppler ultrasound 08/2021 venous no DVT BLE 08/2021 arterial patent vessels, left posterior tibial may be less than 60% stenosis, left dorsalis pedis not visualized History of echocardiogram 05/2021 EF 65% History of electromyography 01/23 Interpretation: The study provides electrodiagnostic evidence for an axonal sensorimotor polyneuropathy based on small or absent CMAPs and SNAPs with denervation seen distally on EMG. The study is limited for evaluation of lumbar radiculopathy related to the patient's anticoagulated state. History of sleep study 02/22 limited sleep, no apnea noted but did have nocturnal hypoxemia, recommended to use nocturnal oxygen HTN (hypertension) previously on treatment for high blood pressure Intermittent self-catheterization of bladder due to urinary retention Left ureteral calculus Lumbar stenosis L2/3, L3/4, L4/L5, with radiculopathy right lower extremity Lumbar stenosis with neurogenic claudication Mild cognitive impairment with memory loss Obstructive pyelonephritis 09/2021 required ureteral stent placement Obstructive sleep apnea Refuses CPAP SARS-CoV-2 positive positive test 11/17/2021 symptoms weakness, hypoglycemia, altered mental status and low grade fever Yeast UTI Surgical History H/O esophagogastroduodenoscopy (10/30/21) 10/2021 pedunculated polyps removed from first portion of duodenum, otherwise normal History of back surgery History of colonoscopy (10/30/21) 11/2021 diverticulosis of sigmoid colon and internal hemorrhoids, sessile polyps removed History of laminectomy 03/25 bilateral with partial facetectomies at L2-3, L3-4, L4-[address] Smith History of pilonidal cyst Other postprocedural status history of radiofrequency ablation for back pain x 2 S/P appendectomy S/P tonsillectomy S/P ureteral stent placement (09/2021) subsequent removal Status post excisional debridement 08/2021 left foot Status post laser lithotripsy of ureteral calculus (11/06/21) Family History Grandmother Heart disease Hypertension Grandfather Hypertension MATERNAL Diabetes Mother No problems noted. Father No problems noted. 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 Financial difficulty paying for basics: Very Hard Physical Exam Const: GENERAL APPEARANCE: cooperative, ill appearing and frail appearing HENMT: COMMON NORMALS: normocephalic, atraumatic and Normal external nose present HEAD & SCALP: normocephalic and atraumatic NOSE: Normal external nose present and Normal nares present MOUTH: Abnormal oral and palatal mucosa present (dry) Eye: COMMON NORMALS: Equal, round and reactive pupils present and EOMs intact bilaterally PUPIL: Yes Equal, round and reactive pupils present Neck/C-Spine: GENERAL: Yes trachea midline Chest: COMMONS NORMALS: normal inspection of the chest CHEST: Yes Symmetrical chest wall rise Resp: COMMON NORMALS: clear to auscultation bilaterally EFFORT & INSPECTION: Yes tachypneic and No respiratory distress AUSCULTATION: clear to auscultation bilaterally Cardio: RATE: tachycardic RHYTHM: abnormal rhythm irregularly irregular GI: COMMON NORMALS: Normal to inspection, nondistended, normoactive bowel sounds present and Soft to palpation PALPATION: Yes Soft to palpation and Yes Tenderness to palpation present (GI) Details: LLQ : OTHER: rankin in place Extremity: GENERAL: Yes edema (2-3+ bilateral) Neuro: FARRKUH COMA SCALE: document GCS findings Farrukh coma scale eye opening: Spontaneous [place] coma scale verbal response: Confused Farrukh coma scale motor response: Obey commands [place] coma scale total score: 14 Skin: COMMON NORMALS: no mottling Course Vital Signs: Vital signs: Vital Signs Temperature 99.3 F 07/05/23 23:36 Pulse Rate 114 H 07/06/23 05:13 Respiratory Rate 24 H 07/06/23 05:13 Blood Pressure 110/81 07/06/23 05:13 Pulse Oximetry 98 07/06/23 05:13 Oxygen Delivery Me thod Room Air 07/06/23 05:13 [facility] - Male Medical Decision Making 73-year-old gentleman presenting febrile and tachycardic. He has a history of urosepsis. He was seen 3 days ago with urinary tract infection symptoms. He was placed on Cipro at that point. Looking back, it appears his urine grew ESBL E. coli from the other day. He is given a 30 mL/kg bolus in the ER Central line is placed he is receiving IV meropenem and Zosyn. Rocephin was Ordered but not administered. White blood cell count is 16. Hemoglobin is 9.2 which is stable from prior heart rate currently 107, blood pressure 102/61. Patient has bilateral hydronephrosis, still. Right side is worse than it was last month. Still no evidence of obstructing stones. No urology service here. Clinical significance of the hydronephrosis at this point from urological standpoint is unknown. Patient's blood pressure is marginal currently 92/55 with a MAP of 67. If MAP falls below 65, pressors will be needed. Because of questionable need for urology, the patient will be transferred to [facility], where he was seen last month. Spoke with hospitalist there, and they have agreed to take in transfer to stepdown provided the patient does not end up on pressors. No beds available currently, but they anticipate he will be able to go in the morning. Lab Data 07/06/23 00:22 07/06/23:22 Radiology Impressions Abdomen/Pelvis CT 07/06/23:18 IMPRESSION: 1. A few small calcified gallstones with new gallbladder wall edema. Correlate for acute cholecystitis. 2. No biliary dilatation. 3. Mild right hydronephrosis and iqgu-go-yayajjcq hydroureter, slightly improved from 05/20/2023. 4. Moderate left hydronephrosis and hydroureter, slightly increased from 05/20/2023. 5. Couple of stable small nonobstructive calculi in the right kidney. No obstructive calculi on either side. 6. Urinary bladder completely decompressed, with a Rankin catheter present. 7. Hepatic steatosis. 8. Colonic diverticulosis without evidence of diverticulitis. 9. Trace free fluid. 10. Small fat containing bilateral inguinal hernias. Chest X-Ray 07/06/23 00:44 IMPRESSION: Status post right IJ central venous line placement, with tip projecting near the cavoatrial junction. Laboratory Results WBC 15.67 10^3/uL (3.29-11.43) H 07/06/23: RBC 3.31 10^6/uL (3.85-5.65) L 07/06/23:22 Hgb 9.20 g/dL (11.27-16.99) L 07/06/23: Hct 29.7 % (37-53) L 07/06/23: MCV 89.7 fl (82-101) 07/06/23: MCH 27.8 pg (27-33) 07/06/23: MCHC 31.0 g/dL (30-55) 07/06/23: RDW 15.4 % (12.1-15.1) H 10/02/23 00:22 Plt Count 329 10^3/cmm (157-399) 07/06/23 00: MPV 10.1 fL (7.4-10.4) 07/06/23 00: Neut % (Auto) 71.9 % 07/06/23 00:22 Lymph % (Auto) 14.4 % 07/06/23 00:22 Noble % (Auto) 10.6 % 07/06/23 00: Eos % (Auto) 2.3 % 07/06/23 00:22 Baso % (Auto) 0.4 % 07/06/23 00:22 Neut # (Auto) 11.26 10^3/uL (1.8-7.7) H 07/06/23 00:22 Lymph # (Auto) 2.3 10^3/uL (0.8-4.8) 07/06/23 00:22 Noble # (Auto) 1.7 10^3/uL (0.2-0.9) H 07/06/23 00:22 Eos # (Auto) 0.4 10^3/uL (0.0-0.8) 07/06/23 00:22 Baso # (Auto) 0.1 10^3/uL (0.0-0.1) 07/06/23 00: Nucleated RBC % (auto) 0 % 07/06/23 00: Nucleated RBCs # 0.0 /100WBC 07/06/23 00:22 Sodium 137 mmol/L (136-145) 07/06/23 00: Potassium 4.8 mmol/L (3.5-5.1) 07/06/23 00: Chloride 101 mmol/L (98-107) 07/06/23 00:22 Carbon Dioxide 22 mmol/L (22-29) 07/06/23 00:22 Anion Gap 18.8 (5-19) 07/06/23 00:22 BUN 43 mg/dL (8-23) H 07/06/23 00:22 Creatinine 2.7 mg/dL (0.7-1.2) H 07/06/23 00:22 GFR Calculation Not Reportable 07/06/23 00:22 Glucose 116 mg/dL (65-115) H 07/06/23 00:22 POC Glucose 106 mg/dL (70-110) 07/06/23 05:10 Calculated Osmolality 296 mOsm/kg (285-295) H 07/06/23 00:22 Lactic Acid 1.1 mmol/L (0.5-2.2) 07/06/23 00:22 Calcium 9.2 mg/dL (8.5-10.5) 07/06/23 00:22 Total Bilirubin 0.3 mg/dL (0.15-1.2) 07/06/23 00:22 AST 14 U/L (0-40) 07/06/23 00:22 ALT 11 U/L (0-41) 07/06/23 00:22 Alkaline Phosphatase 89 U/L (40-130) 07/06/23 00:22 C-Reactive Protein 107.6 mg/L (0.0-4.9) H 07/06/23 00:22 NT-Pro-B Natriuret Pep 3295 pg/mL (0-125) H 07/06/23 00:22 Total Protein 7.3 g/dL (6.6-8.7) 07/06/23 00:22 Albumin 4.1 g/dL (3.5-5.2) 07/06/23 00:22 Globulin 3.2 g/dL (1.3-4.6) 07/06/23 00:22 Lipase 46 U/L (13-60) 07/06/23 00:22 Procalcitonin 0.13 ng/mL (0-0.5) 07/06/23 00:22 Urine Color Red (Yellow) A 07/06/23 01:19 Urine Appearance Cloudy (CLEAR) A 07/06/23 01:19 Urine pH 5 (5-7) 07/06/23 01:19 Ur Specific [place] 1.015 (1.005-1.030) 07/06/23 01:19 Urine Protein 3+ (Negative) H 07/06/23 01:19 Urine Glucose (UA) Norm (Normal) 07/06/23 01:19 Urine Ketones 1+ (Negative) H 07/06/23 01:19 Urine Blood 3+ (Negative) H 07/06/23 01:19 Urine Nitrate Positive (Negative) H 07/06/23 01:19 Urine Bilirubin Neg (Negative) 07/06/23 01:19 Urine Urobilinogen Neg mg/dL (Negative) 07/06/23 01:19 Ur Leukocyte Esterase 2+ (Negative) H 07/06/23 01:19 Urine RBC Too numerous to cnt /hpf (0-2) H 07/06/23 01:19 Urine WBC Too numerous to cnt /hpf (0-5) H 07/06/23 01:19 Ur Squamous Epith Cells None /hpf (0-5) 07/06/23 01:19 Amorphous Sediment Not Reportable 07/06/23 01:19 Urine Bacteria 1+ /hpf (NONE) H 07/06/23 01:19 All radiology interpretation(s) finalized by discharge Critical Care Time Critical Care Time: Critical Care Time: Yes Total Critical Care Time: 40 Attestation: This case had a high probability of a clinically significant, sudden, or life threatening deterioration of this patient's condition which required my full and direct attention, intervention and personal management. Time is independent of any procedures performed. Discharge Plan Discharge Patient Disposition: Xfer Short-Term Hosp Clinical Impression: Acute UTI, Sepsis, Hydronephrosis, Atrial fibrillation with RVR Condition: Fair Referrals: Trisha Urena MD [Primary Care Provider] - Coding Level of Care Code ED Optoelectronic Technician for Say Muñoz
[2023-07-06 00:56] LABS: Lactic Sepsis W/Reflex 1.1 mmol/L (0.5-2.2)
[2023-07-06] MEDS: meropenem 1,000 MG in sodium chloride 0.9% (plus) 50 ML 100 MG IV (01:01)
[2023-07-06 01:06] LABS: NT Pro B Type Natriuretic Pept 3295 pg/mL (0-125); Procalcitonin 0.13 ng/mL (0-0.5)
[2023-07-06 01:17] LABS: Alanine Aminotransferase 11 U/L (0-41); Albumin Level 4.1 g/dL (3.5-5.2); Alkaline Phosphatase 89 U/L (40-130); Anion Gap 18.8 (5-19); Aspartate Amino Transferase 14 U/L (0-40); Blood Urea Nitrogen 43 mg/dL (8-23); C Reactive Protein 107.6 mg/L (0.0-4.9); Calcium 9.2 mg/dL (8.5-10.5); Carbon Dioxide 22 mmol/L (22-29); Chloride 101 mmol/L (98-107); Globulin 3.2 g/dL (1.3-4.6); Glucose 116 mg/dL (65-115); Lipase 46 U/L (13-60); Osmolality Calculated 296 mOsm/kg (285-295); Potassium 4.8 mmol/L (3.5-5.1); Sodium 137 mmol/L (136-145); Total Bilirubin 0.3 mg/dL (0.15-1.2); Total Protein 7.3 g/dL (6.6-8.7)
[2023-07-06] MEDS: piperacillin-tazobactam 4.5 GM in sodium chloride 0.9% (plus) 50 ML IV (01:31)
[2023-07-06 01:47] LABS: Bilirubin Urine Neg (Negative); Blood Urine 3+ (Negative); Glucose Urine UA Norm (Normal); Ketones Urine 1+ (Negative); Leukocyte Esterase Urine 2+ (Negative); Nitrate Urine Positive (Negative); Protein Urine 3+ (Negative); Specific Gravity, Urine 1.015 (1.005-1.030); Urine Appearance Cloudy (CLEAR); Urine Color Red (Yellow); Urobilinogen Urine Neg (Negative); pH Urine 5 (5-7)
[2023-07-06 01:48] LABS: Add Urine Culture? Yes; Add Urine Microscopic? YES; Bacteria Urine 1+ /hpf; RBC Urine TOO NUMEROUS TO CNT /hpf (0-2); WBC Urine TOO NUMEROUS TO CNT /hpf (0-5)
[2023-07-06] MEDS: sodium chloride 0.9% 1,000 ML 100 ML IV (04:57)
[2023-07-06 05:14] LABS: Glucose Point of Care 106 mg/dL (70-110)
--- NOTE | 2023-07-06 07:18 | DCPLANNER ---
Called transfer center at [facility] and spoke with Mike for an update for a room. Mike advised still on the waitlist, but should have something available closer to noon. Call was placed at 07:19.
[2023-07-06] MEDS: piperacillin-tazobactam 3.375 GM in sodium chloride 0.9% (plus) 50 ML IV (07:22)
--- NOTE | 2023-07-06 07:24 | PC.PHAR ---
pt is from pending sale to [facility] [phone] banuelos nurse will fax mar and tar-mar and tar was not in chart this am-pt is being transferred [facility] will try to get fax soon
--- NOTE | 2023-07-06 07:27 | PC.NURSE ---
pt resting in room 11, in no acute distress at this time.
[2023-07-06 09:32] LABS: SARS Covid-2 Antigen negative (Negative)
[2023-07-06 09:33] LABS: Influenza A by IFA negative (Negative); Influenza B by IFA negative (Negative)
== END 2023-07-06 11:35 | disposition short-term general hospital (02) ==
PROVIDERS: Family Medicine; Emergency Provider Emergency Medicine; PCP Family Medicine
DX: A41.9 Sepsis, unspecified organism (principal); N39.0 Urinary tract infection, site not specified; I48.20 Chronic atrial fibrillation, unspecified; K80.20 Calculus of gallbladder without cholecystitis without obstruction; N13.2 Hydronephrosis with renal and ureteral calculous obstruction; K57.30 Diverticulosis of large intestine without perforation or abscess without bleeding; Z87.891 Personal history of nicotine dependence; G30.9 Alzheimer's disease, unspecified; F02.80 Dementia in other diseases classified elsewhere, unspecified severity, without behavioral disturbance, psychotic disturbance, mood disturbance, and anxiety; E11.9 Type 2 diabetes mellitus without complications; Z85.46 Personal history of malignant neoplasm of prostate; I10 Essential (primary) hypertension; Z87.440 Personal history of urinary (tract) infections; Z11.52 Encounter for screening for COVID-19
CPT/HCPCS: 36416; 71045; 74176; 80053; 81001; 82962; 83605; 83690; 83880; 84145; 85025; 86140; 87040; 87086; 87186; 87426; 87804; 93005; 96365; 96367; 99285; C1751; J0696; J2185; J2543; J7030

== ENCOUNTER → 2023-07-22 13:36 | Outpatient (BNVA) | payer OTHER, SELFPAY | PROVIDERS: PCP Family Medicine; Visit Provider Internal Medicine | DX: I10 Essential (primary) hypertension (principal); I48.91 Unspecified atrial fibrillation; Z79.01 Long term (current) use of anticoagulants; Z87.891 Personal history of nicotine dependence | CPT/HCPCS: 99214 ==

== ENCOUNTER 2023-08-03 07:45 | Outpatient (CLI) | payer OTHER, SELFPAY ==
--- NOTE | 2023-08-03 08:00 | USCV_ITS ---
Raphael Deal Age: 73 Gender: M : 1950 Exam Date: 08/03/2023 08:22 Ordering Phys: Aleks Narvaez M.D ([email or web address]) Technologist: RENA [place] [facility] [place]: afib sob, cp BP: 140 / 90 HR: 89 Rhythm: Atrial fibrillation Technical Quality: Adequate MEASUREMENTS (Male / Female) Normal Values 2D ECHO LV Diastolic Diameter PLAX 4.0 cm 4.2 - 5.9 / 3.9 - 5.3 cm LV Systolic Diameter PLAX 2.4 cm IVS Diastolic Thickness 1.7 cm 0.6 - 1.0 / 0.6 - 0.9 cm IVS Systolic Thickness 2.0 cm LVPW Diastolic Thickness 1.6 cm 0.6 - 1.0 / 0.6 - 0.9 cm LVPW Systolic Thickness 2.0 cm LVOT Diameter 2.1 cm LV Ejection Fraction 2D Teich 72.7 % LV Ejection Fraction MOD 2C 72.3 % LV Ejection Fraction 2C AL 76.9 % LA Diameter 3.7 cm LA Width 4.7 cm LA Height 5.7 cm RA Width 4.3 cm RA Height 4.3 cm Aorta at Sinotubular Diameter 3.7 cm IVC Diameter 1.7 cm M-MODE Aortic Annulus Diameter 4.4 cm LA Ao Ratio MM 0.9 MV E Point Septal Separation 0.3 cm DOPPLER AV Peak Velocity 127.0 cm/s LVOT Peak Velocity 106.0 cm/s AV Area Cont Eq vti 2.8 cm squared AV Area Cont Eq pk 2.9 cm squared MV Peak Velocity 132.0 cm/s MV Area PHT 4.5 cm squared Mitral E to A Ratio 11.4 MV E' Velocity 100.0 cm/s TR Peak Velocity 213.3 cm/s TR Peak Gradient 18.2 mmHg Right Atrial Pressure 5.0 mmHg Pulmonary Artery Systolic Pressu 23.2 mmHg PV Peak Velocity 88.0 cm/s RV Acceleration Time 0.1 s RV Ejection Time 0.3 s RV AcT/ET 0.4 FINDINGS Left Ventricle Left ventricle is normal in size. LV systolic function is normal with EF of 55 to 60%. No regional wall motion abnormalities are seen. Diastolic function is indeterminate. Right Ventricle Normal in size and function Right Atrium Normal in size Left Atrium Dilated Mitral Valve Structurally normal mitral valve. Mild mitral regurgitation. Aortic Valve Aortic valve is thickened. No significant stenosis Tricuspid Valve Trace tricuspid regurgitation. RVSP is 35 to 40 mmHg. This is consistent with mild pulmonary hypertension. Pulmonic Valve Not well-visualized Pericardium Normal Aorta Mildly dilated aortic root. IVC Appears to be normal CONCLUSIONS Technically limited quality echocardiogram because of poor ultrasonic windows. LV systolic function is normal with EF of 55 to 60%. Diastolic function is indeterminate because of atrial fibrillation. Left atrial dilation. Mild mitral regurgitation. Trace tricuspid regurgitation. Mild pulmonary hypertension. Mildly dilated aortic root. Compared to prior echocardiogram from 2019, patient now has dilated left atrium and mild pulmonary hypertension Aleks Narvaez MD (Electronically Signed) Final Date: 03 August 2023 09:51 S
== END 2023-08-03 07:46 | disposition home or self-care (01) ==
LOC: RAD 07:45
PROVIDERS: PCP Family Medicine; Visit Provider Internal Medicine
DX: R06.02 Shortness of breath (principal); R07.9 Chest pain, unspecified; I48.91 Unspecified atrial fibrillation; I34.0 Nonrheumatic mitral (valve) insufficiency; I27.20 Pulmonary hypertension, unspecified; I77.810 Thoracic aortic ectasia; I51.7 Cardiomegaly
CPT/HCPCS: 93306

== ENCOUNTER 2023-08-03 19:36 | Inpatient (IN) | payer OTHER, SELFPAY ==
[2023-08-03] VITALS (10 sets, daily range): BP systolic 94–162; BP diastolic 66–92; PULSE 127–174; RESP 23–37; TEMP 36.9–39.4; O2SAT 92–98; BMI 34.9
--- NOTE | 2023-08-03 19:46 | ECG_ITS ---
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 Measurements Intervals [place] Rate: 152 P: 0 HI: 0 QRS: 110 QRSD: 113 T: 43 QT: 293 QTc: 466 Interpretive Statements ATRIAL FIBRILLATION WITH RAPID VENTRICULAR RESPONSE WITH ABERRANT CONDUCTION OR VENTRICULAR PREMATURE COMPLEXES LOW QRS VOLTAGE IN PRECORDIAL LEADS [QRS DEFLECTION < 1.0 mV IN CHEST LEADS] RIGHT BUNDLE BRANCH BLOCK [120+ ms QRS DURATION, UPRIGHT V1, 40+ ms S IN I/aVL/V4/V5/V6] LEFT POSTERIOR FASCICULAR BLOCK [QRS AXIS > 109, INFERIOR Q] Compared to ECG 07/05/2023 23:44:49 Right bundle-branch block now present Left posterior fascicular block now present Incomplete right bundle-branch block no longer present Electronically Signed On 08-03-2023 23:32:00 CDT by Aleks Narvaez M.D. [id number]
--- NOTE | 2023-08-03 19:46 | XRR_ITS ---
PROCEDURE INFORMATION: Exam: XR Chest Exam date and time: 08/03/2023 8:15 PM Age: 73 years old Clinical indication: Fever TECHNIQUE: Imaging protocol: Radiologic exam of the chest. Views: 1 view. COMPARISON: CR (CHEST, ) 07/06/2023 12:58 AM FINDINGS: Lungs: See Heart/Mediastinum finding. Pleural spaces: Unremarkable. No pleural effusion. No pneumothorax. Heart/Mediastinum: Cardiomegaly and minimal pulmonary vascular congestion. Bones/joints: Unremarkable. XR/XR chest 1V portable [id number] IMPRESSION: Cardiomegaly and minimal pulmonary vascular congestion.
--- NOTE | 2023-08-03 19:48 | CTR_ITS ---
PROCEDURE INFORMATION: Exam: CT Head Without Contrast Exam date and time: 08/03/2023 9:32 PM Age: 73 years old Clinical indication: Altered mental status/memory loss; Patient HX: Lethargy with sepsis. ; Additional info: AMS TECHNIQUE: Imaging protocol: Computed tomography of the head without contrast. Radiation optimization: All CT scans at this facility use at least one of these dose optimization techniques: automated exposure control; mA and/or kV adjustment per patient size (includes targeted exams where dose is matched to clinical indication); or iterative reconstruction. REPORTING DATA: Count of CT and Cardiac NM exams in prior 12 months: This patient has received 7 known CTs and 0 known cardiac nuclear medicine studies in the 12 months prior to the current study. COMPARISON: CT head wo con* [id number] 05/14/2023 2:16 AM RADIATION DOSE METRICS: Total DLP (mGy-cm): 687.21 FINDINGS: Brain: Moderate diffuse white matter disease likely reflecting chronic microvascular ischemic changes. Cerebral ventricles: No ventriculomegaly. Paranasal sinuses: Paranasal sinus opacifications. Mastoid air cells: Visualized mastoid air cells are well aerated. Bones/joints: Unremarkable. No acute fracture. Soft tissues: Unremarkable. CT/CT head wo con* [id number] IMPRESSION: Negative for intracranial hemorrhage or mass effect.
--- NOTE | 2023-08-03 19:48 | CTR_ITS ---
PROCEDURE INFORMATION: Exam: CT Abdomen And Pelvis Without Contrast Exam date and time: 08/03/2023 9:35 PM Age: 73 years old Clinical indication: Patient HX: Vomiting with sepsis. Villanueva in place. TECHNIQUE: Imaging protocol: Computed tomography of the abdomen and pelvis without contrast. Radiation optimization: All CT scans at this facility use at least one of these dose optimization techniques: automated exposure control; mA and/or kV adjustment per patient size (includes targeted exams where dose is matched to clinical indication); or iterative reconstruction. REPORTING DATA: Count of CT and Cardiac NM exams in prior 12 months: This patient has received 7 known CTs and 0 known cardiac nuclear medicine studies in the 12 months prior to the current study. COMPARISON: CT kidney stone [id number] 07/06/2023 1:08 AM RADIATION DOSE METRICS: Total DLP (mGy-cm): 730.86 FINDINGS: Lungs: Right lower lobe atelectasis versus minimal infiltrate. Pleural spaces: Small bilateral right greater than left pleural effusions. Heart: Small pericardial effusion measuring 6.6 mm in thickness. Coronary arteries: Coronary artery atherosclerotic calcifications. Liver: Hepatic steatosis. Gallbladder and bile ducts: Cholelithiasis. Pancreas: Normal. No ductal dilation. Spleen: Normal. No splenomegaly. Adrenal glands: Normal. No mass. Kidneys and ureters: Perinephric edema bilaterally may reflect renal sufficiency, please correlate for pyelonephritis. Right kidney nonobstructing calyceal stone. Stomach and bowel: Diverticulosis without diverticulitis. Appendix: No evidence of appendicitis. Intraperitoneal space: Unremarkable. No free air. No significant fluid collection. Vasculature: Unremarkable. No abdominal aortic aneurysm. Lymph nodes: Unremarkable. No enlarged lymph nodes. Urinary bladder: Urinary bladder wall thickening with surrounding edema may reflect a cystitis, nondistention is also a consideration. Villanueva catheter in the urinary bladder. Reproductive: Unremarkable as visualized. Bones/joints: Unremarkable. No acute fracture. Soft tissues: Anasarca. CT/CT abdomen pelvis wo con [id number] IMPRESSION: 1. Perinephric edema bilaterally may reflect renal sufficiency, please correlate for pyelonephritis. 2. Right kidney nonobstructing calyceal stone. 3. Urinary bladder wall thickening with surrounding edema may reflect a cystitis, nondistention is also a consideration. 4. Villanueva catheter in the urinary bladder. 5. Diverticulosis without diverticulitis. 6. Anasarca. 7. Small bilateral right greater than left pleural effusions. 8. Small pericardial effusion measuring 6.6 mm in thickness. 9. Coronary artery atherosclerotic calcifications. 10. Right lower lobe atelectasis versus minimal infiltrate. 11. Hepatic steatosis. 12. Cholelithiasis.
[2023-08-03] MEDS: acetaminophen 1,000 MG/100 ML PIGGYBACK 400 MG IV (20:05)
[2023-08-03] MEDS: ondansetron 2 mg/ML SDV 2 mL 4 MG IVP (20:05)
[2023-08-03] MEDS: piperacillin-tazobactam 3.375 GM in sodium chloride 0.9% (plus) 50 ML IV (20:13)
[2023-08-03 20:24] LABS: Basophils # 0.1 10^3/uL (0.0-0.1); Basophils % 0.4 %; Eosinophils # 0.3 10^3/uL (0.0-0.8); Eosinophils % 1.5 %; Hematocrit 29.4 % (37-53); Lymphocytes % 5.9 %; Mean Corpuscular HGB Conc 31.3 g/dL (30-55); Mean Corpuscular Hemoglobin 27.3 pg (27-33); Mean Corpuscular Volume 87.2 fl (82-101); Monocytes % 5.6 %; Neutrophils % 86.2 %; Nucleated Red Blood Cells % 0 %; Platelet Count 378 10^3/cmm (157-399); Red Blood Count 3.37 10^6/uL (3.85-5.65); Red Cell Distribution Width 15.9 % (12.1-15.1); White Blood Count 17.41 10^3/uL (3.29-11.43)
[2023-08-03 20:37] LABS: Urine Appearance Cloudy (CLEAR); Urine Color Yellow (Yellow); pH Urine 5 (5-7)
[2023-08-03 20:38] LABS: Add Urine Microscopic? YES; Bilirubin Urine Neg (Negative); Blood Urine 3+ (Negative); Glucose Urine UA Norm (Normal); Ketones Urine 1+ (Negative); Leukocyte Esterase Urine 2+ (Negative); Nitrate Urine Negative (Negative); Protein Urine 3+ (Negative); Urobilinogen Urine Neg (Negative)
[2023-08-03 20:39] LABS: RBC Urine 40-50 /hpf (0-2); WBC Urine 80-100 /hpf (0-5)
[2023-08-03 20:40] LABS: Add Urine Culture? Yes; Bacteria Urine 2+ /hpf
[2023-08-03 20:42] LABS: INR 2.49 (0.8-1.2)
--- NOTE | 2023-08-03 20:42 | W.ED.FEVER ---
HPI - Fever General: Chief Complaint: Fever Stated Complaint: possible sepsis Time Seen by Provider: 08/03/23 19:38 Source: EMS Mode of arrival: EMS Limitations: altered mental status History of Present Illness: 73-year-old male is here from long-term with a fever he states that today at the long-term he had some increased confusion he did have a temperature 103. Said history of urinary tract infections in the past he is also had a slight cough as well. Per EMS he was answering their questions but here he is quite confused with me he is able to tell me his name but is not aware of the year or where he lives. He denies any pain anywhere he has had vomiting today as well. Does have a history of A-fib he is in A-fib with RVR his blood pressure here has been normal Review of Systems General: Reports: ROS unobtainable due to mental status PFS ED PFSH: Medical History Alzheimer disease Anemia Atrial fibrillation Bacteriuria BPH loc w urin obs/LUTS Cervicalgia of [id number] region Chronic anticoagulation Taken off Xarelto secondary to hematuria Diabetes mellitus, type II Diabetic foot ulcer 08/2021 - treated with I&D, antibiotics and wound care clinic management 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 mellitus 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 mellitus Gait instability H/O prostate cancer Hematuria due to acute cystitis History of cardiovascular stress test 05/2021 normal EKG response, perfusion study without findings of ischemia History of Doppler ultrasound 08/2021 venous no DVT BLE 08/2021 arterial patent vessels, left posterior tibial may be less than 60% stenosis, left dorsalis pedis not visualized History of echocardiogram 05/2021 EF 65% History of electromyography 01/23 Interpretation: The study provides electrodiagnostic evidence for an axonal sensorimotor polyneuropathy based on small or absent CMAPs and SNAPs with denervation seen distally on EMG. The study is limited for evaluation of lumbar radiculopathy related to the patient's anticoagulated state. History of sleep study 02/22 limited sleep, no apnea noted but did have nocturnal hypoxemia, recommended to use nocturnal oxygen HTN (hypertension) previously on treatment for high blood pressure Intermittent self-catheterization of bladder due to urinary retention Left ureteral calculus Lumbar stenosis L2/3, L3/4, L4/L5, with radiculopathy right lower extremity Lumbar stenosis with neurogenic claudication Mild cognitive impairment with memory loss Obstructive pyelonephritis 09/2021 required ureteral stent placement Obstructive sleep apnea Refuses CPAP SARS-CoV-2 positive positive test 11/17/2021 symptoms weakness, hypoglycemia, altered mental status and low grade fever Yeast UTI Surgical History H/O esophagogastroduodenoscopy (10/30/21) 10/2021 pedunculated polyps removed from first portion of duodenum, otherwise normal History of back surgery History of colonoscopy (10/30/21) 11/2021 diverticulosis of sigmoid colon and internal hemorrhoids, sessile polyps removed History of laminectomy 03/25 bilateral with partial facetectomies at L2-3, L3-4, L4-[address] Smith History of pilonidal cyst Other postprocedural status history of radiofrequency ablation for back pain x 2 S/P appendectomy S/P tonsillectomy S/P ureteral stent placement (09/2021) subsequent removal Status post excisional debridement 08/2021 left foot Status post laser lithotripsy of ureteral calculus (11/06/21) Family History Grandmother Heart disease Hypertension Grandfather Hypertension MATERNAL Diabetes Mother No problems noted. Father No problems noted. 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 Exam Const: COMMON NORMALS: negative for patient oriented x3 GENERAL APPEARANCE: ill appearing ORIENTATION/CONSCIOUSNESS: Yes oriented to person; not oriented to place HENMT: COMMON NORMALS: normocephalic and atraumatic HEAD & SCALP: normocephalic and atraumatic Eye: COMMON NORMALS: Equal, round and reactive pupils present and EOMs intact bilaterally PUPIL: Yes Equal, round and reactive pupils present Neck/C-Spine: COMMON NORMALS: full ROM and supple Chest: COMMONS NORMALS: normal inspection of the chest and normal palpation of entire chest wall Resp: COMMON NORMALS: normal respiratory effort, No retractions, No use of accessory muscles and clear to auscultation bilaterally AUSCULTATION: clear to auscultation bilaterally Cardio: COMMON NORMALS: No murmurs present (Cardio) RATE: tachycardic RHYTHM: abnormal rhythm irregularly irregular GI: COMMON NORMALS: Normal to inspection, nondistended, normoactive bowel sounds present, Soft to palpation, non-tender and no masses PALPATION: Yes Soft to palpation Extremity: COMMON NORMALS: normal to inspection and full ROM Neuro: COMMON NORMALS: moves all extremities and no focal motor deficits; negative for patient oriented x3 SENSORIUM/ORIENTATION: Yes oriented to person and No oriented to place Psych: COMMON NORMALS: mental status grossly normal, Normal thought process present and cooperative THOUGHT PROCESS: Normal thought process present Skin: COMMON NORMALS: no rashes or lesions noted and no wounds GENERAL SKIN EXAM: no rashes or lesions noted Course Vital Signs: Vital signs: Vital Signs Temperature 98.5 F 08/03/23 21:20 Pulse Rate 130 H 08/03/23 22:44 Respiratory Rate 37 H 08/03/23 19:45 Blood Pressure 112/84 08/03/23 22:44 Pulse Oximetry 95 08/03/23 22:44 Oxygen Delivery Me thod Room Air 08/03/23 22:44 MDM - Fever Medical Decision Making Patient presents for long-term with a fever he is found to have a cystitis possible pyelonephritis. Does have elevated white count and lactate consistent with sepsis. Did give him 2 L of IV fluids his blood pressure here has been normal did not give him the full sepsis bolus as he appears to be fluid overloaded and does have a BNP that is elevated as well believe that more fluids will cause more harm. Did started on amiodarone his heart rate is improving as well give him IV antibiotics spoke to the hospitalist will admit the ICU Medical Records I reviewed the patient's medical records. Lab Data I reviewed the patient's lab results. 08/03/23 20:05 08/03/23 20:05 Radiology Impressions Chest X-Ray 08/03/23 19:46 IMPRESSION: Cardiomegaly and minimal pulmonary vascular congestion. Abdomen/Pelvis CT 08/03/23 19:48 IMPRESSION: 1. Perinephric edema bilaterally may reflect renal sufficiency, please correlate for pyelonephritis. 2. Right kidney nonobstructing calyceal stone. 3. Urinary bladder wall thickening with surrounding edema may reflect a cystitis, nondistention is also a consideration. 4. Villanueva catheter in the urinary bladder. 5. Diverticulosis without diverticulitis. 6. Anasarca. 7. Small bilateral right greater than left pleural effusions. 8. Small pericardial effusion measuring 6.6 mm in thickness. 9. Coronary artery atherosclerotic calcifications. 10. Right lower lobe atelectasis versus minimal infiltrate. 11. Hepatic steatosis. 12. Cholelithiasis. Head CT 08/03/23 19:48 IMPRESSION: Negative for intracranial hemorrhage or mass effect. Laboratory Results WBC 17.41 10^3/uL (3.29-11.43) H 08/03/23 20:05 RBC 3.37 10^6/uL (3.85-5.65) L 08/03/23 20:05 Hgb 9.20 g/dL (11.27-16.99) L 08/03/23 20:05 Hct 29.4 % (37-53) L 08/03/23 20:05 MCV 87.2 fl (82-101) 08/03/23 20:05 MCH 27.3 pg (27-33) 08/03/23 20:05 MCHC 31.3 g/dL (30-55) 08/03/23 20:05 RDW 15.9 % (12.1-15.1) H 08/03/23 20:05 Plt Count 378 10^3/cmm (157-399) 08/03/23 20:05 MPV 10.0 fL (7.4-10.4) 08/03/23 20:05 Neut % (Auto) 86.2 % 08/03/23 20:05 Lymph % (Auto) 5.9 % 08/03/23 20:05 Irwin % (Auto) 5.6 % 08/03/23 20:05 Eos % (Auto) 1.5 % 08/03/23 20:05 Baso % (Auto) 0.4 % 08/03/23 20:05 Neut # (Auto) 15.00 10^3/uL (1.8-7.7) H 08/03/23 20:05 Lymph # (Auto) 1.0 10^3/uL (0.8-4.8) 08/03/23 20:05 Irwin # (Auto) 1.0 10^3/uL (0.2-0.9) H 08/03/23 20:05 Eos # (Auto) 0.3 10^3/uL (0.0-0.8) 08/03/23 20:05 Baso # (Auto) 0.1 10^3/uL (0.0-0.1) 08/03/23 20:05 Nucleated RBC % (auto) 0 % 08/03/23 20:05 Nucleated RBCs # 0.0 /100WBC 08/03/23 20:05 PT 27.80 SECONDS (12.1-14.9) H 08/03/23 20:05 INR 2.49 (0.8-1.2) H 08/03/23 20:05 Sodium 139 mmol/L (136-145) 08/03/23 20:05 Potassium 4.7 mmol/L (3.5-5.1) 08/03/23 20:05 Chloride 106 mmol/L (98-107) 08/03/23 20:05 Carbon Dioxide 20 mmol/L (22-29) L 08/03/23 20:05 Anion Gap 17.7 (5-19) 08/03/23 20:05 BUN 25 mg/dL (8-23) H 08/03/23 20:05 Creatinine 1.7 mg/dL (0.7-1.2) H 08/03/23 20:05 GFR Calculation Not Reportable 08/03/23 20:05 Glucose 210 mg/dL (65-115) H 08/03/23 20:05 Calculated Osmolality 299 mOsm/kg (285-295) H 08/03/23 20:05 Lactic Acid 2.8 mmol/L (0.5-2.2) H 08/03/23 20:05 Lactic Acid (Sepsis) 1.7 mmol/L (0.5-2.2) 08/03/23 22:18 Calcium 9.0 mg/dL (8.5-10.5) 08/03/23 20:05 Total Bilirubin 0.3 mg/dL (0.15-1.2) 08/03/23 20:05 AST 12 U/L (0-40) 08/03/23 20:05 ALT 8 U/L (0-41) 08/03/23 20:05 Alkaline Phosphatase 82 U/L (40-130) 08/03/23 20:05 NT-Pro-B Natriuret Pep 2619 pg/mL (0-125) H 08/03/23 20:05 Total Protein 6.7 g/dL (6.6-8.7) 08/03/23 20:05 Albumin 3.8 g/dL (3.5-5.2) 08/03/23 20:05 Globulin 2.9 g/dL (1.3-4.6) 08/03/23 20:05 Urine Color Yellow (Yellow) 08/03/23 20:24 Urine Appearance Cloudy (CLEAR) A 08/03/23 20:24 Urine pH 5 (5-7) 08/03/23 20:24 Ur Specific Kress 1.010 (1.005-1.030) 08/03/23 20:24 Urine Protein 3+ (Negative) H 08/03/23 20:24 Urine Glucose (UA) Norm (Normal) 08/03/23 20:24 Urine Ketones 1+ (Negative) H 08/03/23 20:24 Urine Blood 3+ (Negative) H 08/03/23 20:24 Urine Nitrate Negative (Negative) 08/03/23 20:24 Urine Bilirubin Neg (Negative) 08/03/23 20:24 Urine Urobilinogen Neg mg/dL (Negative) 08/03/23 20:24 Ur Leukocyte Esterase 2+ (Negative) H 08/03/23 20:24 Urine RBC 40-50 /hpf (0-2) H 08/03/23 20:24 Urine WBC 80-100 /hpf (0-5) H 08/03/23 20:24 Ur Squamous Epith Cells None /hpf (0-5) 08/03/23 20:24 Amorphous Sediment Not Reportable 08/03/23 20:24 Urine Bacteria 2+ /hpf (NONE) H 08/03/23 20:24 Urine Yeast 2+ /hpf H 08/03/23 20:24 Influenza Type A Ag Negative (Negative) 08/03/23 20:24 Influenza Type B Ag Negative (Negative) 10/30/23 20:24 SARS-CoV-2 Ag (Rapid) Negative (Negative) 08/03/23 20:24 All radiology interpretation(s) finalized by discharge Critical Care Time Critical Care Time: Critical Care Time: Yes Total Critical Care Time: 50 Attestation: The high probability of a clinically significant, sudden or life threatening deterioration of the patient's cv/gu system(s) required my full and direct attention, intervention and personal management. The critical care time is as shown. This time is in addition to time spent performing any reported procedures but includes the following: [x] Data and vital sign review and interpretation [x] Patient assessment, examination and intervention [x] Documentation [x] Medication orders and management Discharge Plan Discharge Patient Disposition: Admitted As Inpatient Admit Provider: Suzi Coats Clinical Impression: Acute UTI, Sepsis, Atrial fibrillation with rapid ventricular response Condition: Stable Coding Level of Care Code ED Hot Kettle Tender for Say Muñoz
[2023-08-03 20:48] LABS: Lactic Sepsis W/Reflex 2.8 mmol/L (0.5-2.2)
[2023-08-03] MEDS: vancomycin 1,000 MG in sodium chloride 0.9% 250 ML 250 MG IV (20:50)
[2023-08-03 20:57] LABS: Alanine Aminotransferase 8 U/L (0-41); Albumin Level 3.8 g/dL (3.5-5.2); Alkaline Phosphatase 82 U/L (40-130); Anion Gap 17.7 (5-19); Aspartate Amino Transferase 12 U/L (0-40); Blood Urea Nitrogen 25 mg/dL (8-23); Carbon Dioxide 20 mmol/L (22-29); Chloride 106 mmol/L (98-107); Globulin 2.9 g/dL (1.3-4.6); Glucose 210 mg/dL (65-115); NT Pro B Type Natriuretic Pept 2619 pg/mL (0-125); Osmolality Calculated 299 mOsm/kg (285-295); Potassium 4.7 mmol/L (3.5-5.1); Sodium 139 mmol/L (136-145); Total Bilirubin 0.3 mg/dL (0.15-1.2); Total Protein 6.7 g/dL (6.6-8.7)
[2023-08-03 20:58] LABS: Influenza A by IFA Negative (Negative); Influenza B by IFA Negative (Negative); SARS Covid-2 Antigen Negative (Negative)
--- NOTE | 2023-08-03 21:13 | PC.NURSE ---
Patient was cleaned up per request of patient's daughter. Patient's bedding was changed; depends were changed. Patient was also given socks per request of daughter.
[2023-08-03 22:08] LABS: Reflex Lactate Order REFLEX LACTIC ORDERD
[2023-08-03] MEDS: ketorolac 30 mg/mL INJ 15 MG IVP (22:36)
[2023-08-03 22:53] LABS: Lactic Acid level (Lactate) 1.7 mmol/L (0.5-2.2)
--- NOTE | 2023-08-03 23:00 | PC.NURSE ---
Report called to Rosamaria BRAVO. All questions and concerns addressed at time of report.
--- NOTE | 2023-08-03 23:42 | PM.HP ---
Providers/Chief Complaint Admitting Physician: Suzi Coats MD Primary Care Provider: Trisha Urena MD Chief Complaint: possible sepsis History of Present Illness Raphael Deal is a 73 year old male with history of type 2 diabetes, BPH, previous history of ureteral stent removed by Dr. Paul, presented to hospital from [facility] with chief complaint of fever and altered mental status.? No direct history is available from the patient as he is currently confused. Per report from EMS, patient has been having fever for the last 2 to 3 days, he has had a slight cough and has overall been appearing unwell. Upon presentation to the ER he had temperature up to 103 Fahrenheit. He was also noted to be in A-fib with RVR with a heart rate of 160/min. He was started on amiodarone infusion after receiving a 150 mg bolus in the ER. He is pleasantly confused. Denies any pain at this time. He is able to correctly state his name and the fact that he is in a hospital but not much else. Review of Systems General: Reports: ROS unobtainable due to mental status Medications/Allergies Home Medications Medication Instructions Recorded Confirmed Last Taken Type albuterol sulfate 90 mcg/actuation 2 puff inhalation Q4H PRN 10/03/21 08/04/23 06/22/23 12:00 History aerosol inhaler (ProAir HFA) Shortness Of Breath fluticasone 100 mcg-salmeterol 50 1 inh inhalation BID 10/03/21 08/04/23 08/03/23 12:05 History mcg/dose blistr powdr for inhalation (Wixela Inhub) rosuvastatin 40 mg tablet 40 mg PO BEDTIME@12/04/21 08/04/23 08/02/23 23:00 History tamsulosin 0.4 mg capsule 0.4 mg PO BEDTIME@12/04/21 08/04/23 08/02/23 22:55 History blood-glucose meter,continuous #1 ea 12/18/21 07/06/23 Unknown Rx (Dexcom G6 Chief Operator Lock Tender) methocarbamol 750 mg tablet 750 mg PO QID 11/25/22 08/04/23 08/03/23 17:50 History insulin glargine 100 unit/mL (3 45 unit (0.45 mL) SUBCUT BID #15 mL 05/17/23 07/22/23 07/02/23 07:16 Rx mL) subcutaneous pen (Lantus Solostar U-100 Insulin) blood-glucose sensor (Dexcom G6 #9 ea 05/18/23 07/06/23 Unknown Rx Sensor device) galantamine 4 mg tablet 4 mg PO BID 05/20/23 08/04/23 08/03/23 12:05 History blood-glucose transmitter (Dexcom #1 ea 05/25/23 07/06/23 Unknown Rx G6 Transmitter device) acetaminophen 325 mg tablet 650 mg PO Q6H PRN Pain 07/02/23 08/04/23 07/31/23 07:00 History (Tylenol) bisacodyl 10 mg rectal suppository 10 mg [place] DAILY PRN Constipation 07/02/23 08/04/23 Unknown History (Dulcolax (bisacodyl)) cholecalciferol (vitamin D3) 25 25 mcg PO DAILY@07/02/23 08/04/23 08/03/23 11:59 History mcg (1,000 unit) tablet (Vitamin D3) coenzyme Q10 30 mg capsule 30 mg PO DAILY@07/02/23 08/04/23 08/03/23 12:05 History cyanocobalamin (vitamin B-12) 1,000 mcg PO DAILY@07/02/23 08/04/23 08/03/23 12:05 History 1,000 mcg tablet (Vitamin B-12) diltiazem HCl 60 mg tablet 60 mg PO Q8H 07/02/23 08/04/23 08/03/23 14:00 History finasteride 5 mg tablet 5 mg PO DAILY@07/02/23 08/04/23 08/03/23 12:05 History fluticasone propionate 50 2 spray intranasal DAILY@07/02/23 08/04/23 08/03/23 12:05 History mcg/actuation nasal spray,suspension gabapentin 400 mg capsule 400 mg PO TID 07/02/23 08/04/23 07/30/23 04:00 History insulin aspart U-100 100 unit/mL 35 unit SUBCUT TID 07/02/23 07/22/23 07/02/23 History (3 mL) subcutaneous pen (Novolog FlexPen U-100 Insulin aspart) melatonin 1 mg tablet 1 mg PO BEDTIME@1930 07/02/23 08/04/23 08/03/23 10:55 History menthol 0.44 %-zinc oxide 20.6 % See Rx Instructions .Route .COMPLEX 07/02/23 08/04/23 08/03/23 12:05 History topical ointment (Calmoseptine) metoprolol tartrate 100 mg tablet 100 mg PO BID@07,19 07/02/23 08/04/23 08/03/23 12:05 History rivaroxaban 20 mg tablet (Xarelto) 20 mg PO DAILY@16 07/02/23 08/04/23 08/03/23 17:50 History therapeutic multivitamin 1 tab PO DAILY@07 07/02/23 07/06/23 07/02/23 History metformin 500 mg tablet 500 mg PO DAILY 07/22/23 08/04/23 08/03/23 12:05 History mometasone 50 mcg/actuation nasal 1 spray intranasal BID 08/04/23 08/04/23 08/03/23 12:05 History spray Allergies Allergy/AdvReac Type Severity Reaction Status Date / Time No Known Allergies Allergy Verified 07/22/23 14:01 PFSH Acute PFSH: Medical History Alzheimer disease Anemia Atrial fibrillation Bacteriuria BPH loc w urin obs/LUTS Cervicalgia of [place] region Chronic anticoagulation Taken off Xarelto secondary to hematuria Diabetes mellitus, type II Diabetic foot ulcer 08/2021 - treated with I&D, antibiotics and wound care clinic management 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 mellitus 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 mellitus Gait instability H/O prostate cancer Hematuria due to acute cystitis History of cardiovascular stress test 05/2021 normal EKG response, perfusion study without findings of ischemia History of Doppler ultrasound 08/2021 venous no DVT BLE 08/2021 arterial patent vessels, left posterior tibial may be less than 60% stenosis, left dorsalis pedis not visualized History of echocardiogram 05/2021 EF 65% History of electromyography 01/23 Interpretation: The study provides electrodiagnostic evidence for an axonal sensorimotor polyneuropathy based on small or absent CMAPs and SNAPs with denervation seen distally on EMG. The study is limited for evaluation of lumbar radiculopathy related to the patient's anticoagulated state. History of sleep study 02/22 limited sleep, no apnea noted but did have nocturnal hypoxemia, recommended to use nocturnal oxygen HTN (hypertension) previously on treatment for high blood pressure Intermittent self-catheterization of bladder due to urinary retention Left ureteral calculus Lumbar stenosis L2/3, L3/4, L4/L5, with radiculopathy right lower extremity Lumbar stenosis with neurogenic claudication Mild cognitive impairment with memory loss Obstructive pyelonephritis 09/2021 required ureteral stent placement Obstructive sleep apnea Refuses CPAP SARS-CoV-2 positive positive test 11/17/2021 symptoms weakness, hypoglycemia, altered mental status and low grade fever Yeast UTI Surgical History H/O esophagogastroduodenoscopy (10/30/21) 10/2021 pedunculated polyps removed from first portion of duodenum, otherwise normal History of back surgery History of colonoscopy (10/30/21) 11/2021 diverticulosis of sigmoid colon and internal hemorrhoids, sessile polyps removed History of laminectomy 03/25 bilateral with partial facetectomies at L2-3, L3-4, L4-[address] Smith History of pilonidal cyst Other postprocedural status history of radiofrequency ablation for back pain x 2 S/P appendectomy S/P tonsillectomy S/P ureteral stent placement (09/2021) subsequent removal Status post excisional debridement 08/2021 left foot Status post laser lithotripsy of ureteral calculus (11/06/21) Family History Grandmother Heart disease Hypertension Grandfather Hypertension MATERNAL Diabetes Mother No problems noted. Father No problems noted. 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 Vitals/I&O/Wt Last Vital Signs Temp 98.5 F 08/03/23 21:20 Pulse 130 H 08/03/23 22:44 Resp 37 H 08/03/23 19:45 BP 112/84 08/03/23 22:44 Pulse Ox 95 08/03/23 22:44 O2 Del Method Room Air 08/03/23 22:44 08/03/23 08/03/23 08/04/23 14:59 22:59 06:59 Intake Total 400 / 400 Balance 400 / 400 Weight last 48 hrs Weight 104.326 kg Physical Exam Narrative: General: No acute distress, AO x1 HEENT: PERRLA, pupils bilaterally equal and reactive, pallors not present Chest: Normal vesicular breath sounds, no added sounds, equal good air entry bilaterally CVS: S1-S2 regular, no murmurs, no tachycardia, no gallops, no rubs Abdomen: Soft, nontender, no organomegaly, bowel sounds present Neuro: No focal deficits, no facial deformity, AO x1-2 Data 08/03/23 20:05 08/03/23 20:05 Micro: Microbiology 08/03/23 20:06 Blood Culture - Preliminary Blood SPECIMEN COLLECTED 08/03/23 20:05 Blood Culture - Preliminary Blood SPECIMEN COLLECTED Other data: Radiology Impressions Chest X-Ray 08/03/23 19:46 IMPRESSION: Cardiomegaly and minimal pulmonary vascular congestion. Abdomen/Pelvis CT 08/03/23 19:48 IMPRESSION: 1. Perinephric edema bilaterally may reflect renal sufficiency, please correlate for pyelonephritis. 2. Right kidney nonobstructing calyceal stone. 3. Urinary bladder wall thickening with surrounding edema may reflect a cystitis, nondistention is also a consideration. 4. Villanueva catheter in the urinary bladder. 5. Diverticulosis without diverticulitis. 6. Anasarca. 7. Small bilateral right greater than left pleural effusions. 8. Small pericardial effusion measuring 6.6 mm in thickness. 9. Coronary artery atherosclerotic calcifications. 10. Right lower lobe atelectasis versus minimal infiltrate. 11. Hepatic steatosis. 12. Cholelithiasis. Head CT 08/03/23 19:48 IMPRESSION: Negative for intracranial hemorrhage or mass effect. Laboratory Results WBC 17.41 10^3/uL (3.29-11.43) H 08/03/23 20:05 RBC 3.37 10^6/uL (3.85-5.65) L 08/03/23 20:05 Hgb 9.20 g/dL (11.27-16.99) L 08/03/23 20:05 Hct 29.4 % (37-53) L 08/03/23 20:05 MCV 87.2 fl (82-101) 08/03/23 20:05 MCH 27.3 pg (27-33) 08/03/23 20:05 MCHC 31.3 g/dL (30-55) 08/03/23 20:05 RDW 15.9 % (12.1-15.1) H 08/03/23 20:05 Plt Count 378 10^3/cmm (157-399) 08/03/23 20:05 MPV 10.0 fL (7.4-10.4) 08/03/23 20:05 Neut % (Auto) 86.2 % 08/03/23 20:05 Lymph % (Auto) 5.9 % 08/03/23 20:05 Bacon % (Auto) 5.6 % 08/03/23 20:05 Eos % (Auto) 1.5 % 08/03/23 20:05 Baso % (Auto) 0.4 % 08/03/23 20:05 Neut # (Auto) 15.00 10^3/uL (1.8-7.7) H 08/03/23 20:05 Lymph # (Auto) 1.0 10^3/uL (0.8-4.8) 08/03/23 20:05 Bacon # (Auto) 1.0 10^3/uL (0.2-0.9) H 08/03/23 20:05 Eos # (Auto) 0.3 10^3/uL (0.0-0.8) 08/03/23 20:05 Baso # (Auto) 0.1 10^3/uL (0.0-0.1) 08/03/23 20:05 Nucleated RBC % (auto) 0 % 08/03/23 20:05 Nucleated RBCs # 0.0 /100WBC 08/03/23 20:05 PT 27.80 SECONDS (12.1-14.9) H 08/03/23 20:05 INR 2.49 (0.8-1.2) H 08/03/23 20:05 Sodium 139 mmol/L (136-145) 08/03/23 20:05 Potassium 4.7 mmol/L (3.5-5.1) 08/03/23 20:05 Chloride 106 mmol/L (98-107) 08/03/23 20:05 Carbon Dioxide 20 mmol/L (22-29) L 08/03/23 20:05 Anion Gap 17.7 (5-19) 08/03/23 20:05 BUN 25 mg/dL (8-23) H 08/03/23 20:05 Creatinine 1.7 mg/dL (0.7-1.2) H 08/03/23 20:05 GFR Calculation Not Reportable 08/03/23 20:05 Glucose 210 mg/dL (65-115) H 08/03/23 20:05 Calculated Osmolality 299 mOsm/kg (285-295) H 08/03/23 20:05 Lactic Acid 2.8 mmol/L (0.5-2.2) H 08/03/23 20:05 Lactic Acid (Sepsis) 1.7 mmol/L (0.5-2.2) 08/03/23 22:18 Calcium 9.0 mg/dL (8.5-10.5) 08/03/23 20:05 Total Bilirubin 0.3 mg/dL (0.15-1.2) 08/03/23 20:05 AST 12 U/L (0-40) 08/03/23 20:05 ALT 8 U/L (0-41) 08/03/23 20:05 Alkaline Phosphatase 82 U/L (40-130) 08/03/23 20:05 NT-Pro-B Natriuret Pep 2619 pg/mL (0-125) H 08/03/23 20:05 Total Protein 6.7 g/dL (6.6-8.7) 08/03/23 20:05 Albumin 3.8 g/dL (3.5-5.2) 08/03/23 20:05 Globulin 2.9 g/dL (1.3-4.6) 08/03/23 20:05 Urine Color Yellow (Yellow) 08/03/23 20:24 Urine Appearance Cloudy (CLEAR) A 08/03/23 20:24 Urine pH 5 (5-7) 08/03/23 20:24 Ur Specific [place] 1.010 (1.005-1.030) 08/03/23 20:24 Urine Protein 3+ (Negative) H 08/03/23 20:24 Urine Glucose (UA) Norm (Normal) 08/03/23 20:24 Urine Ketones 1+ (Negative) H 08/03/23 20:24 Urine Blood 3+ (Negative) H 08/03/23 20:24 Urine Nitrate Negative (Negative) 08/03/23 20:24 Urine Bilirubin Neg (Negative) 08/03/23 20:24 Urine Urobilinogen Neg mg/dL (Negative) 08/03/23 20:24 Ur Leukocyte Esterase 2+ (Negative) H 08/03/23 20:24 Urine RBC 40-50 /hpf (0-2) H 08/03/23 20:24 Urine WBC 80-100 /hpf (0-5) H 08/03/23 20:24 Ur Squamous Epith Cells None /hpf (0-5) 08/03/23 20:24 Amorphous Sediment Not Reportable 08/03/23 20:24 Urine Bacteria 2+ /hpf (NONE) H 08/03/23 20:24 Urine Yeast 2+ /hpf H 08/03/23 20:24 Influenza Type A Ag Negative (Negative) 08/03/23 20:24 Influenza Type B Ag Negative (Negative) 08/03/23 20:24 SARS-CoV-2 Ag (Rapid) Negative (Negative) 08/03/23 20:24 A&P Assessment and plan (1) Sepsis: Sepsis as evidenced by leukocytosis, fever of 103 Fahrenheit and source of infection by way of likely UTI. Complicated by metabolic encephalopathy. Lactate upon admission at 2.8. Resolved at 1.7 after fluid bolus. Received 2 L IV fluid bolus in the emergency room. Further fluids have not been continued due to elevated BNP, concern for precipitating heart failure with rapid A-fib RVR. He has received piperacillin/tazobactam and vancomycin in the ER. We will change antibiotic coverage to meropenem 1 g IV every 8 hours in keeping with prior urine culture results with ESBL E. coli, Pseudomonas aeruginosa and Klebsiella pneumonia. Blood cultures taken prior to initiating antibiotics. Perfusion status is adequate. CT of the abdomen and pelvis without any obstruction along the urinary tract. Echocardiogram taken earlier today showing EF of 55 to 60%, indeterminant diastolic dysfunction. Compared to prior patient has in the interim developed a dilated left atrium and mild pulmonary hypertension. Tricuspid valve regurgitation noted. Qualifiers: Sepsis type: sepsis due to unspecified organism Sepsis acute organ dysfunction status: with acute organ dysfunction Severe sepsis acute organ dysfunction type: encephalopathy Severe sepsis shock status: without septic shock Qualified Code(s): A41.9 - Sepsis, unspecified organism; R65.20 - Severe sepsis without septic shock; G93.41 - Metabolic encephalopathy (2) Atrial fibrillation with rapid ventricular response: A-fib with RVR, with heart rate ranging between 1 60-1 80 upon admission. Thereafter has been started on amiodarone infusion which is continued at this time. Denies any chest pain. Continue Xarelto (3) Acute UTI: Urinary tract infection as evidenced by positive UA, awaiting urine culture. Background history of recurrent chronic cystitis. Currently on empiric coverage with meropenem as above. Await urine and blood cultures. (4) AMS (altered mental status): Suspect metabolic encephalopathy from sepsis as a result of UTI. Continue other home medications including statins, finasteride galantamine All antihypertensives and Cardizem due to soft blood pressure. Qualifiers: Altered mental status type: somnolence Qualified Code(s): R40.0 - Somnolence Plan Diabetes mellitus: Insulin sliding scale DVT prophylaxis: On Xarelto which will suffice Full code PUD prophylaxis: Protonix Attestations Medical Necessity Statement*: Greater than 2 midnight admission is anticipated for management of sepsis, UTI, A-fib RVR needing amiodarone infusion, IV antibiotics Coding Level of Care Code Acute Code for Chg Fwd High MDM includes number and complexity of problems actively addressed during encounter, amount and/or complexity of data reviewed/ordered and described risk of complication, morbidity or mortality of management as documented Diagnoses Sepsis A41.9; R65.20; G93.41 Sepsis type: sepsis due to unspecified organism Sepsis acute organ dysfunction status: with acute organ dysfunction Severe sepsis acute organ dysfunction type: encephalopathy Severe sepsis shock status: without septic shock Atrial fibrillation with rapid ventricular response I48.91 Acute UTI N39.0 AMS (altered mental status) R40.0 Altered mental status type: somnolence
[2023-08-04] VITALS (22 sets, daily range): BP systolic 88–138; BP diastolic 66–100; PULSE 88–154; RESP 21–54; TEMP 36.6–38.4; O2SAT 89–100
[2023-08-04] MEDS: metoprolol tartrate 1 mg/1 mL SDV 5 mL 2.5 MG IVP (00:14)
[2023-08-04] MEDS: meropenem 1,000 MG in sodium chloride 0.9% (plus) 50 ML 100 MG IV ×3 (00:14→20:17)
[2023-08-04 05:13] LABS: Basophils # 0.1 10^3/uL (0.0-0.1); Basophils % 0.6 %; Eosinophils # 0.1 10^3/uL (0.0-0.8); Eosinophils % 0.7 %; Hematocrit 28.7 % (37-53); Lymphocytes % 5.4 %; Mean Corpuscular HGB Conc 29.3 g/dL (30-55); Mean Corpuscular Hemoglobin 27.1 pg (27-33); Mean Corpuscular Volume 92.6 fl (82-101); Mean Platelet Volume 10.2 fL (7.4-10.4); Monocytes # 1.2 10^3/uL (0.2-0.9); Monocytes % 6.2 %; Neutrophils # 16.16 10^3/uL (1.8-7.7); Neutrophils % 86.6 %; Nucleated Red Blood Cells % 0 %; Platelet Count 277 10^3/cmm (157-399); Red Cell Distribution Width 16.1 % (12.1-15.1); White Blood Count 18.67 10^3/uL (3.29-11.43)
[2023-08-04 05:32] LABS: Alanine Aminotransferase 6 U/L (0-41); Albumin Level 3.2 g/dL (3.5-5.2); Alkaline Phosphatase 65 U/L (40-130); Anion Gap 14.7 (5-19); Aspartate Amino Transferase 11 U/L (0-40); Blood Urea Nitrogen 29 mg/dL (8-23); Calcium 8.6 mg/dL (8.5-10.5); Carbon Dioxide 20 mmol/L (22-29); Chloride 105 mmol/L (98-107); Globulin 2.9 g/dL (1.3-4.6); Glucose 196 mg/dL (65-115); Osmolality Calculated 291 mOsm/kg (285-295); Potassium 4.7 mmol/L (3.5-5.1); Sodium 135 mmol/L (136-145); Total Bilirubin 0.4 mg/dL (0.15-1.2); Total Protein 6.1 g/dL (6.6-8.7)
[2023-08-04] MEDS: finasteride 5 mg Tablet PO (06:37)
[2023-08-04] MEDS: metoprolol tartrate 50 mg Tablet 100 MG PO ×2 (06:37→18:30)
[2023-08-04 07:51] LABS: Glucose Point of Care 161 mg/dL (70-110)
[2023-08-04] MEDS: insulin lispro 100 unit/1 mL SUBCUT ×2 (08:13→22:00)
[2023-08-04] MEDS: pantoprazole DR 40 mg Tablet PO (08:13)
[2023-08-04 11:48] LABS: Glucose Point of Care 168 mg/dL (70-110)
[2023-08-04] MEDS: FUROsemide 10 mg/mL SDV 4mL 40 MG IVP (11:58)
--- NOTE | 2023-08-04 11:59 | XRR_ITS ---
PROCEDURE INFORMATION: Exam: XR Chest Exam date and time: 08/04/2023 12:31 PM Age: 73 years old Clinical indication: Shortness of breath; Additional info: SOB TECHNIQUE: Imaging protocol: Radiologic exam of the chest. Views: 1 view. COMPARISON: CR (CHEST, ) 08/03/2023 8:15 PM FINDINGS: Lungs: Unremarkable. No consolidation. Pleural spaces: Unremarkable. No pleural effusion. No pneumothorax. Heart/Mediastinum: Cardiac silhouette appears mildly enlarged on this portable chest. Bones/joints: Unremarkable for age. XR/XR chest 1V portable [id number] IMPRESSION: Mild cardiomegaly otherwise negative chest.
[2023-08-04 12:18] LABS: ABG PCO2 37.6 mmHg (35-45); ABG PH Result 7.37 (7.35-7.45); Alveolar-Arterial Oxygen Gradi 3.4 mmHg (5-10); Arterial Blood Gas Hematocrit 24.9 % (42-52); Base Excess ABG -3.5 mmol/L (-2.0-2.0); Blood Gas Allen Test Pos; Blood Gas Operator Identificat CAK; Blood Gas Sample Site Radial, left; Blood Gas Sample Type Arterial; Carboxyhemoglobin 2.3 %THgb (0.4-20.1); HCO3 ABG 21.5 mmol/L (22-26); HGB O2 Sat 93.8 % (95-100); Ionized Calcium Level - ABG 1.2 mmol/L (1.1-1.4); Methemoglobin 0.3 % (0.4-1.5); Oxygen Device ROOM AIR; Oxygen Saturation ABG 96.3; PO2 ABG 77.7 mmHg (80.0-100.0); Potassium Level - ABG 4.6 mmol/L (3.5-5.0); Total Hemoglobin 8.1 g/dL (14-18)
--- NOTE | 2023-08-04 13:18 | ECG_ITS ---
[facility] Test Date: 2023-08-04 Pat Name: Raphael Deal Department: Room: ICU06 Gender: Male Inspector Tubes: : 1950 Requested By: Omari Lopez Order Number: [id number] Nilay MD: June Hernández M.D. Measurements Intervals [place] Rate: 105 P: 0 NV: 0 QRS: 82 QRSD: 134 T: 38 QT: 371 QTc: 490 Interpretive Statements ATRIAL FIBRILLATION WITH RAPID VENTRICULAR RESPONSE RIGHT BUNDLE BRANCH BLOCK [120+ ms QRS DURATION, UPRIGHT V1, 40+ ms S IN I/aVL/V4/V5/V6] Compared to ECG 08/03/2023 19:46:21 Aberrant conduction of supraventricular beat(s) no longer present Ventricular premature complex(es) no longer present Left posterior fascicular block no longer present Electronically Signed On 08-04-2023 16:31:05 CDT by June Hernández M.D. [id number]
[2023-08-04 14:31] LABS: Troponin(5th) Baseline 57 ng/L (0-15)
[2023-08-04 14:41] LABS: NT Pro B Type Natriuretic Pept 4215 pg/mL (0-125)
--- NOTE | 2023-08-04 15:02 | P.PN_ITS ---
Subjective Subjective: Patient was seen this morning, he is alert to person, to place, not to time, denies any fevers, no chills, no flank pain, I had a discussion about his transfer to [facility] few months ago, for similar UTI and sepsis like picture, he was found to have bilateral hydronephrosis, which on today CT scan is not evident, he does not tell me that he had any surgery, or any specific evaluation, but they kept him for a few days and he received antibiotics, currently denying any fevers or chills or have a nonproductive cough, Vitals/I&O/Wt Last Vital Signs Temp 101.1 F H 08/04/23 08:00 Pulse 105 H 08/04/23 13:34 Resp 29 H 08/04/23 12:00 BP 119/76 08/04/23 12:00 Pulse Ox 99 08/04/23 13:34 O2 Del Method Room Air 08/04/23 06:40 FiO2 24 08/04/23 13:34 08/04/23 08/04/23 08/04/23 06:59 14:59 22:59 Intake Total 254.303 / 538.091 8332.78 / 3522.78 Output Total 400 / 400 Balance -145.697 / 858.830 0484.78 / 3522.78 Weight last 48 hrs Weight 104.326 kg Physical Exam Const: COMMON NORMALS: no acute distress ORIENTATION/CONSCIOUSNESS: Yes awake, Yes oriented to person and Yes oriented to place; not oriented to time Resp: COMMON NORMALS: normal respiratory effort, No retractions and No use of accessory muscles AUSCULTATION: crackles OTHER: Crackles in lung parikh bilaterally Cardio: COMMON NORMALS: S1 normal heart sound present and S2 normal heart sound present RATE: tachycardic RHYTHM: abnormal rhythm irregularly irregular HEART SOUNDS: S1 normal heart sound present and S2 normal heart sound present GI: COMMON NORMALS: Normal to inspection, nondistended, normoactive bowel sounds present and non-tender Extremity: COMMON NORMALS: no pedal edema Neuro: SENSORIUM/ORIENTATION: Yes oriented to person, Yes oriented to place and No oriented to time Psych: COMMON NORMALS: mental status grossly normal Data 08/04/23 04:47 08/04/23 04:47 Micro: Microbiology 08/03/23 20:06 Blood Culture - Preliminary Blood SPECIMEN COLLECTED 08/03/23 20:05 Blood Culture - Preliminary Blood SPECIMEN COLLECTED A&P Assessment and plan (1) Sepsis: Qualifiers: Sepsis acute organ dysfunction status: with acute organ dysfunction Sepsis type: sepsis due to unspecified organism Severe sepsis acute organ dysfunction type: encephalopathy Severe sepsis shock status: without septic s hock Qualified Code(s): A41.9 - Sepsis, unspecified organism; R65.20 - Severe sepsis without septic shock; G93.41 - Metabolic encephalopathy (2) Atrial fibrillation with rapid ventricular response: (3) Acute UTI: Urinary tract infection as evidenced by positive UA, awaiting urine culture. Background history of recurrent chronic cystitis. Currently on empiric coverage with meropenem as above. Await urine and blood cultures. (4) AMS (altered mental status): Qualifiers: Altered mental status type: somnolence Qualified Code(s): R40.0 - Somnolence (5) Urinary tract infection: (6) Systolic CHF, acute: (7) Acute exacerbation of CHF (congestive heart failure): (8) NSTEMI (non-ST elevated myocardial infarction): (9) BPH loc w urin obs/LUTS: (10) Diabetes mellitus, type II: Qualifiers: Diabetes mellitus intermediate designer insulin use: with intermediate designer use Diabetes mellitus complication status: with neurologic complications Diabetes mellitus complication detail: with polyneuropathy Qualified Code(s): E11.42 - Type 2 diabetes mellitus with diabetic polyneuropathy; Z79.4 - terminal makeup operator (current) use of insulin (11) Hyperlipemia, mixed: (12) Hyperlipemia, mixed: (13) Acidosis, lactic: (14) Pyelonephritis: Plan Altered mental status ? Secondary to urinary tract infection, ?, Neurochecks, aspiration precautions -will keep n.p.o., speech therapy eval Sepsis secondary to UTI ? Patient meets sepsis criteria given creatinine 2.0, A-fib with RVR, elevated lactic acid, febrile 101.1, CRP 151, Pro-Vik 12.3, white blood cell count 18.67 UTI/bilateral pyelonephritis ? History of bilateral hydroureteronephrosis ? History of urinary retention ? History of ESBL infections ?1. ? Perinephric edema bilaterally may reflect renal sufficiency, please correlate for pyelonephritis. 2. ? Right kidney nonobstructing calyceal stone. 3. ? Urinary bladder wall thickening with surrounding edema may reflect a cystitis, nondistention is also a consideration. 4. ? Villanueva catheter in the urinary bladder. 5. ? Diverticulosis without diverticulitis. 6. ? Anasarca. 7. ? Small bilateral right greater than left pleural effusions. 8. ? Small pericardial effusion measuring 6.6 mm in thickness. 9. ? Coronary artery atherosclerotic calcifications. 10. ? Right lower lobe atelectasis versus minimal infiltrate. 11. ? Hepatic steatosis. 12. ? Cholelithiasis. Plan ? Fever control ? Follow urine culture, blood cultures, ? Continue meropenem, ? Add vancomycin A-fib with RVR, ? Continue Xarelto -Continue metoprolol ? Continue amiodarone drip Systolic CHF exacerbation, pulmonary edema, fluid overload, ? ABG ? BiPAP therapy ? Monitor respiratory status closely ? 1 dose of Lasix IV, monitor urine output, NSTEMI ? Type I versus type II, likely associate with sepsis, ? Serial EKGs, troponins, telemetry monitoring Lactic acidosis, secondary to sepsis as above, History of BPH, Diabetes mellitus: Insulin sliding scale DVT prophylaxis: On Xarelto which will suffice Full code PUD prophylaxis: Protonix Attestations Medical Necessity Statement*: Patient requires hospitalization, for UTI, pyelonephritis, sepsis, A-fib, NSTEMI, systolic CHF, ICU admission, acute encephalopathy, Diagnoses Sepsis A41.9; R65.20; G93.41 Sepsis acute organ dysfunction status: with acute organ dysfunction Sepsis type: sepsis due to unspecified organism Severe sepsis acute organ dysfunction type: encephalopathy Severe sepsis shock status: without septic shock Atrial fibrillation with rapid ventricular response I48.91 Acute UTI N39.0 AMS (altered mental status) R40.0 Altered mental status type: somnolence Urinary tract infection N39.0 Systolic CHF, acute I50.21 Acute exacerbation of CHF (congestive heart failure) I50.9 NSTEMI (non-ST elevated myocardial infarction) I21.4 BPH loc w urin obs/LUTS N40.1 Diabetes mellitus, type II E11.42; Z79.4 Diabetes mellitus intermediate designer insulin use: with mcc use Diabetes mellitus complication status: with neurologic complications Diabetes mellitus complication detail: with polyneuropathy Hyperlipemia, mixed E78.2 Acidosis, lactic E87.2 Pyelonephritis N12
--- NOTE | 2023-08-04 15:21 | ECG_ITS ---
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 Measurements Intervals [place] Rate: 98 P: 0 MI: 0 QRS: 85 QRSD: 132 T: 45 QT: 363 QTc: 465 Interpretive Statements ATRIAL FIBRILLATION RIGHT BUNDLE BRANCH BLOCK [120+ ms QRS DURATION, UPRIGHT V1, 40+ ms S IN I/aVL/V4/V5/V6] SEPTAL MYOCARDIAL INFARCTION , OF INDETERMINATE AGE [40+ ms Q WAVE IN V1/V2] Compared to ECG 08/04/2023 13:39:21 Myocardial infarct finding now present Electronically Signed On 08-04-2023 16:32:31 CDT by June Hernández M.D. [id number]
[2023-08-04 17:08] LABS: Glucose Point of Care 149 mg/dL (70-110)
[2023-08-04 17:13] LABS: Troponin 5 2HR 51.44 ng/L (0-15)
[2023-08-04 17:15] LABS: Troponin 5 2HR Delta -5.56 ABS# (0-10)
[2023-08-04] MEDS: rivaroxaban 10 mg Tablet 20 MG PO (17:29)
[2023-08-04] MEDS: vancomycin 1,500 MG/300 ML PIGGYBACK 200 MG IV (17:29)
[2023-08-04] MEDS: tamsulosin 0.4 mg Capsule PO (18:30)
[2023-08-04] MEDS: atorvastatin 40 mg Tablet PO (18:30)
[2023-08-04 21:50] LABS: Glucose Point of Care 143 mg/dL (70-110)
--- NOTE | 2023-08-04 22:37 | PC.NURSE ---
Contacted hospitalist on duty regarding ICU 6 Raphael Deal Amiodarone infusion. We are at the 18 hr rocio of the 0.5 mg infusion. Patient is not on oral amiodarone. He was given oral metoprolol today. He is now NPO based on speech therapy eval. HR 96-102 BP 130/84. Dr. Coats, hospitalist stated to continue amiodarone infusion overnight.
--- NOTE | 2023-08-04 22:53 | ECG_ITS ---
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 Measurements Intervals [place] Rate: 102 P: 0 NM: 0 QRS: 68 QRSD: 90 T: 30 QT: 365 QTc: 476 Interpretive Statements ATRIAL FIBRILLATION WITH RAPID VENTRICULAR RESPONSE WITH ABERRANT CONDUCTION OR VENTRICULAR PREMATURE COMPLEXES LOW QRS VOLTAGE [QRS DEFLECTION < 0.5/1.0 mV IN LIMB/CHEST LEADS] POSSIBLE RIGHT VENTRICULAR CONDUCTION DELAY [RSR (QR) IN V1/V2] JUNCTIONAL ST DEPRESSION, CONSIDER NORMAL VARIANT [0.1+ mV JUNCTIONAL DEPRESSION] Compared to ECG 08/04/2023 15:21:43 Ventricular premature complex(es) now present Aberrant conduction of supraventricular beat(s) now present Low QRS voltage now present ST (T wave) deviation now present Right bundle-branch block no longer present Myocardial infarct finding no longer present Electronically Signed On 08-04-2023 22:56:58 CDT by June Hernández M.D. [id number]
[2023-08-05] VITALS (75 sets, daily range): BP systolic 102–128; BP diastolic 57–91; PULSE 92–128; RESP 18–53; TEMP 36.8–37; O2SAT 93–100
[2023-08-05] MEDS: morphine 4 mg/mL SDV 1 mL 2 MG IVP ×3 (01:26→16:37)
[2023-08-05 05:52] LABS: Basophils # 0.1 10^3/uL (0.0-0.1); Basophils % 0.5 %; Eosinophils # 0.3 10^3/uL (0.0-0.8); Eosinophils % 2.2 %; Hematocrit 25.6 % (37-53); Lymphocytes # 1.8 10^3/uL (0.8-4.8); Lymphocytes % 12.7 %; Mean Corpuscular HGB Conc 29.3 g/dL (30-55); Mean Corpuscular Hemoglobin 27.2 pg (27-33); Mean Corpuscular Volume 92.8 fl (82-101); Mean Platelet Volume 10.5 fL (7.4-10.4); Monocytes # 1.1 10^3/uL (0.2-0.9); Monocytes % 7.8 %; Neutrophils # 10.69 10^3/uL (1.8-7.7); Neutrophils % 76.4 %; Nucleated Red Blood Cells % 0 %; Platelet Count 247 10^3/cmm (157-399); Red Blood Count 2.76 10^6/uL (3.85-5.65); Red Cell Distribution Width 16.1 % (12.1-15.1); White Blood Count 13.99 10^3/uL (3.29-11.43)
[2023-08-05 06:18] LABS: Alanine Aminotransferase 9 U/L (0-41); Albumin Level 3.1 g/dL (3.5-5.2); Alkaline Phosphatase 62 U/L (40-130); Aspartate Amino Transferase 16 U/L (0-40); Blood Urea Nitrogen 32 mg/dL (8-23); C Reactive Protein 169.1 mg/L (0.0-4.9); Calcium 8.5 mg/dL (8.5-10.5); Carbon Dioxide 19 mmol/L (22-29); Chloride 107 mmol/L (98-107); Globulin 3.1 g/dL (1.3-4.6); Glucose 117 mg/dL (65-115); Magnesium 1.8 mg/dL (1.7-2.3); Osmolality Calculated 292 mOsm/kg (285-295); Phosphorus 3.7 mg/dL (2.5-4.5); Sodium 137 mmol/L (136-145); Total Bilirubin 0.4 mg/dL (0.15-1.2); Total Protein 6.2 g/dL (6.6-8.7)
[2023-08-05 06:23] LABS: Anion Gap 15.6 (5-19); Potassium 4.6 mmol/L (3.5-5.1)
[2023-08-05 06:31] LABS: NT Pro B Type Natriuretic Pept 3450 pg/mL (0-125); Procalcitonin 8.38 ng/mL (0-0.5)
[2023-08-05 06:51] LABS: Creatine Phosphokinase 55 U/L (39-308)
--- NOTE | 2023-08-05 07:00 | XRR_ITS ---
PROCEDURE INFORMATION: Exam: XR Chest Exam date and time: 08/05/2023 6:59 AM Age: 73 years old Clinical indication: Shortness of breath; Additional info: SOB TECHNIQUE: Imaging protocol: Radiologic exam of the chest. Views: 1 view. COMPARISON: CR (CHEST, ) 08/04/2023 12:31 PM FINDINGS: Lungs: Ground-glass densities in the right lung base concerning for possible pneumonia. Pleural spaces: No pneumothorax. No pleural effusion. Heart/Mediastinum: The cardiomediastinal silhouette is within normal limits. Bones/joints: Unremarkable. XR/XR chest 1V portable [id number] IMPRESSION: Ground-glass densities in the right lung base concerning for possible pneumonia.
[2023-08-05] MEDS: meropenem 1,000 MG in sodium chloride 0.9% (plus) 50 ML 100 MG IV ×2 (07:43→19:13)
[2023-08-05 08:40] LABS: Ferritin 103 ng/mL (30-400); Iron 20 ug/dL (59-158); Percent Saturation 9.1 % (20-50); Total Iron Binding Capacity 218 mcg/dl; Unsaturated Iron Binding 198 ug/dL (112-347)
[2023-08-05] MEDS: amiodarone 200 mg Tablet 400 MG PO ×2 (08:41→17:35)
[2023-08-05] MEDS: pantoprazole DR 40 mg Tablet PO (08:41)
[2023-08-05 09:24] LABS: Hematocrit 25.3 % (37-53)
--- NOTE | 2023-08-05 09:55 | PC.NURSE ---
Upon arrival, patient appears pale, HGB has dropped from 9.2 on arrival to 7.5 this morning. Radial and dorsal pedalis pulses are faint. Nurse alerted Dr artis and received orders to hold Xarelto.
[2023-08-05 11:43] LABS: Glucose Point of Care 141 mg/dL (70-110)
[2023-08-05 12:01] LABS: Glucose Point of Care 118 mg/dL (70-110)
[2023-08-05 12:16] LABS: Hematocrit 25.4 % (37-53)
[2023-08-05] MEDS: insulin lispro 100 unit/1 mL SUBCUT ×2 (12:23→17:36)
--- NOTE | 2023-08-05 12:33 | PC.SOCIAL ---
Pg 2 IMM Explained to pt Pg 2 IMM. No questions voiced. Provided pt a copy. Initialed, dated, & timed a copy & placed in chart.
--- NOTE | 2023-08-05 16:38 | P.PN_ITS ---
Subjective Subjective: Patient was seen this morning, patient is alert to person, to place, to time he follows commands, does report generalized weakness, he reports repeated coughing, I am worried that he is aspirated, as his chest x-ray shows right lower lobe infiltrate, concerning for aspiration pneumonitis, will can have speech therapy take a look at him, he is still on amiodarone drip, heart rate in the 120s, A-fib, he is not on any pressors, he is responding well to Lasix therapy, does not look fluid overloaded we will hold off on Lasix therapy, his hemoglobin has gone down to 7.5, we discussed holding his anticoagulant therapy he is agreeable Vitals/I&O/Wt Last Vital Signs Temp 98.6 F 08/05/23 12:15 Pulse 113 H 08/05/23 16:00 Resp 25 H 08/05/23 16:00 BP 109/78 08/05/23 16:00 Pulse Ox 100 08/05/23 16:00 O2 Del Method Room Air 08/05/23 12:15 O2 Flow Rate 2 08/04/23 20:32 FiO2 24 08/04/23 16:36 08/05/23 08/05/23 08/05/23 06:59 14:59 22:59 Intake Total 313.697 / 4186.477 671.275 / 671.275 Output Total 920 / 2420 750 / 750 Balance -606.303 / 1766.477 -78.725 / -78.725 Weight last 48 hrs Weight 104.326 kg Physical Exam Const: COMMON NORMALS: no acute distress and patient oriented x3 Resp: COMMON NORMALS: normal respiratory effort, No retractions, No use of accessory muscles and clear to auscultation bilaterally AUSCULTATION: clear to auscultation bilaterally Cardio: COMMON NORMALS: regular rate, regular rhythm, S1 normal heart sound present and S2 normal heart sound present RATE: regular rate RHYTHM: regular rhythm HEART SOUNDS: S1 normal heart sound present and S2 normal heart sound present GI: COMMON NORMALS: Normal to inspection, nondistended, normoactive bowel sounds present and non-tender Extremity: COMMON NORMALS: no pedal edema Neuro: COMMON NORMALS: patient oriented x3 Psych: COMMON NORMALS: mental status grossly normal Urinary Catheter Management: Villanueva: Cath Placed During This Visit: no Reason for Continuing Indwelling Catheter: Accurate Measurement of Urinary Output in Critically Ill Patients Data 08/05/23 12:08 08/05/23 03:00 Micro: Microbiology 08/03/23 20:24 Urine Culture - Preliminary Urine,Clean Catch Gram Negative Rods 08/03/23 20:06 Blood Culture - Preliminary Blood NEGATIVE TO DATE 08/03/23 20:05 Blood Culture - Preliminary Blood NEGATIVE TO DATE A&P Assessment and plan (1) Sepsis: Qualifiers: Sepsis acute organ dysfunction status: with acute organ dysfunction Sepsis type: sepsis due to unspecified organism Severe sepsis acute organ dysfunction type: encephalopathy Severe sepsis shock status: without septic shock Qualified Code(s): A41.9 - Sepsis, unspecified organism; R65.20 - Severe sepsis without septic shock; G93.41 - Metabolic encephalopathy (2) Atrial fibrillation with rapid ventricular response: (3) Acute UTI: Urinary tract infection as evidenced by positive UA, awaiting urine culture. Background history of recurrent chronic cystitis. Currently on empiric coverage with meropenem as above. Await urine and blood cultures. (4) AMS (altered mental status): Qualifiers: Altered mental status type: somnolence Qualified Code(s): R40.0 - Somnolence (5) Urinary tract infection: (6) Systolic CHF, acute: (7) Acute exacerbation of CHF (congestive heart failure): (8) NSTEMI (non-ST elevated myocardial infarction): (9) BPH loc w urin obs/LUTS: (10) Diabetes mellitus, type II: Qualifiers: Diabetes mellitus prison insulin use: with prison use Diabetes mellitus complication status: with neurologic complications Diabetes mellitus complication detail: with polyneuropathy Qualified Code(s): E11.42 - Type 2 diabetes mellitus with diabetic polyneuropathy; 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 Secondary to urinary tract infection, ? Neurochecks, aspiration precautions -will keep n.p.o., speech therapy eval Right lower lobe pneumonia -Continue broad-spectrum antibiotic therapy -Aspiration precautions -Speech therapy eval Sepsis secondary to UTI ? Patient meets sepsis criteria given creatinine 2.0, A-fib with RVR, elevated lactic acid, febrile 101.1, CRP 151, Pro-Vik 12.3, white blood cell count 18.67 UTI/bilateral pyelonephritis ? History of bilateral hydroureteronephrosis ? History of urinary retention ? History of ESBL infections ?1. ? Perinephric edema bilaterally may reflect renal sufficiency, please correlate for pyelonephritis. 2. ? Right kidney nonobstructing calyceal stone. 3. ? Urinary bladder wall thickening with surrounding edema may reflect a cystitis, nondistention is also a consideration. 4. ? Villanueva catheter in the urinary bladder. 5. ? Diverticulosis without diverticulitis. 6. ? Anasarca. 7. ? Small bilateral right greater than left pleural effusions. 8. ? Small pericardial effusion measuring 6.6 mm in thickness. 9. ? Coronary artery atherosclerotic calcifications. 10. ? Right lower lobe atelectasis versus minimal infiltrate. 11. ? Hepatic steatosis. 12. ? Cholelithiasis. Plan ? Fever control ? Follow urine culture, blood cultures, ? Continue meropenem, ? Add vancomycin A-fib with RVR, ? Anemia Xarelto on hold -Continue metoprolol ? Continue amiodarone drip, wean off to p.o. amiodarone Systolic CHF exacerbation, pulmonary edema, fluid overload, ? ABG ? BiPAP therapy ? Monitor respiratory status closely ? Monitor fluid status NSTEMI ? Type I versus type II, likely associate with sepsis, ? Serial EKGs, troponins, telemetry monitoring Lactic acidosis, secondary to sepsis as above, History of BPH, Diabetes mellitus: Insulin sliding scale Acute anemia ? Monitor hemoglobin closely ? Iron studies, ?, Hold Xarelto ? DVT prophylaxis: SCDs, Xarelto on hold Full code PUD prophylaxis: Protonix Attestations Medical Necessity Statement*: Patient with hospitalization secondary to A-fib remains on amiodarone drip, now with right lower lobe pneumonia aspiration on antibiotics, UTI, on antibiotics, hold off on further Lasix therapy Coding Level of Care Code Acute Code for Chg Fwd Diagnoses Sepsis A41.9; R65.20; G93.41 Sepsis acute organ dysfunction status: with acute organ dysfunction Sepsis type: sepsis due to unspecified organism Severe sepsis acute organ dysfunction type: encephalopathy Severe sepsis shock status: without septic shock Atrial fibrillation with rapid ventricular response I48.91 Acute UTI N39.0 AMS (altered mental status) R40.0 Altered mental status type: somnolence Urinary tract infection N39.0 Systolic CHF, acute I50.21 Acute exacerbation of CHF (congestive heart failure) I50.9 NSTEMI (non-ST elevated myocardial infarction) I21.4 BPH loc w urin obs/LUTS N40.1 Diabetes mellitus, type II E11.42; Z79.4 Diabetes mellitus 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
[2023-08-05 16:46] LABS: Glucose Point of Care 188 mg/dL (70-110)
--- NOTE | 2023-08-05 16:49 | PC.NURSE ---
SHift SUmmary: uneventful shift. Patient rested in bed for about half of the day, up to a chair for other half. Started on Dysphagia level 6 diet which he tolerated well. Amiodarone drip discontinued, continues to have a heart rhythm varying between afib and normal sinus, mostly normal sinus. Heart rate usually between 105-115. 1300 mL of urine output. Urine has had varying appearance, usually brown and purulent, occasionally clear and blood tinged.
[2023-08-05 16:51] LABS: Hematocrit 25.2 % (37-53)
[2023-08-05] MEDS: vancomycin 1,500 MG/300 ML PIGGYBACK 200 MG IV (17:37)
[2023-08-05] MEDS: tamsulosin 0.4 mg Capsule PO (19:12)
[2023-08-05] MEDS: atorvastatin 40 mg Tablet PO (19:13)
[2023-08-05] MEDS: metoprolol tartrate 50 mg Tablet 100 MG PO (19:13)
[2023-08-05] MEDS: acetaminophen 325 mg Tablet 650 MG PO (19:29)
[2023-08-05 20:03] LABS: Glucose Point of Care 115 mg/dL (70-110)
[2023-08-05 20:07] LABS: Hematocrit 25.3 % (37-53)
--- NOTE | 2023-08-05 20:22 | NUR.SHIFT ---
0-- Assumed care of patient. Resting in bed, reporting pain to bilat feel. Elevated on pillow and will give pain medication as ordered. Patient reports that he is feeling a little hungry because he was unable to eat his tray that was brought to him earlier because he was not feeling hungry at that time. V/S stable. Villanueva patent with dark cloudy urine noted.
--- NOTE | 2023-08-05 20:25 | PC.NURSE ---
Milton and chocolate glucerna given to patient. Blood glucose .
[2023-08-06] VITALS (19 sets, daily range): BP systolic 105–156; BP diastolic 72–103; PULSE 88–124; RESP 16–28; TEMP 36.8–37; O2SAT 94–98
[2023-08-06] MEDS: morphine 4 mg/mL SDV 1 mL 2 MG IVP ×2 (00:08→13:04)
[2023-08-06 00:24] LABS: Hematocrit 24.6 % (37-53)
[2023-08-06 05:21] LABS: Basophils # 0.1 10^3/uL (0.0-0.1); Basophils % 0.6 %; Eosinophils # 0.5 10^3/uL (0.0-0.8); Eosinophils % 4.9 %; Hematocrit 25.2 % (37-53); Lymphocytes # 1.7 10^3/uL (0.8-4.8); Lymphocytes % 16.3 %; Mean Corpuscular HGB Conc 30.6 g/dL (30-55); Mean Corpuscular Hemoglobin 27.3 pg (27-33); Mean Corpuscular Volume 89.4 fl (82-101); Mean Platelet Volume 10.4 fL (7.4-10.4); Monocytes % 8.9 %; Neutrophils # 7.37 10^3/uL (1.8-7.7); Neutrophils % 68.9 %; Nucleated Red Blood Cells % 0 %; Platelet Count 258 10^3/cmm (157-399); Red Blood Count 2.82 10^6/uL (3.85-5.65); White Blood Count 10.68 10^3/uL (3.29-11.43)
[2023-08-06 05:47] LABS: Alanine Aminotransferase 9 U/L (0-41); Albumin Level 3.2 g/dL (3.5-5.2); Alkaline Phosphatase 74 U/L (40-130); Anion Gap 13.3 (5-19); Aspartate Amino Transferase 11 U/L (0-40); Blood Urea Nitrogen 34 mg/dL (8-23); Calcium 8.8 mg/dL (8.5-10.5); Carbon Dioxide 22 mmol/L (22-29); Chloride 105 mmol/L (98-107); Globulin 2.8 g/dL (1.3-4.6); Glucose 171 mg/dL (65-115); Magnesium 1.9 mg/dL (1.7-2.3); NT Pro B Type Natriuretic Pept 2551 pg/mL (0-125); Osmolality Calculated 294 mOsm/kg (285-295); Phosphorus 3.6 mg/dL (2.5-4.5); Potassium 4.3 mmol/L (3.5-5.1); Procalcitonin 5.23 ng/mL (0-0.5); Sodium 136 mmol/L (136-145); Total Bilirubin 0.2 mg/dL (0.15-1.2)
[2023-08-06 05:58] LABS: Creatine Phosphokinase 28 U/L (39-308)
[2023-08-06] MEDS: finasteride 5 mg Tablet PO (06:07)
[2023-08-06] MEDS: metoprolol tartrate 50 mg Tablet 100 MG PO ×2 (06:07→18:17)
[2023-08-06] MEDS: pantoprazole DR 40 mg Tablet PO (08:59)
[2023-08-06] MEDS: amiodarone 200 mg Tablet 400 MG PO ×2 (08:59→16:55)
[2023-08-06] MEDS: meropenem 1,000 MG in sodium chloride 0.9% (plus) 50 ML 100 MG IV ×2 (08:59→20:15)
[2023-08-06 09:13] LABS: Glucose Point of Care 185 mg/dL (70-110)
[2023-08-06] MEDS: insulin lispro 100 unit/1 mL SUBCUT ×3 (09:59→21:24)
[2023-08-06] MEDS: FUROsemide 10 mg/mL SDV 4mL 40 MG IVP (12:12)
[2023-08-06] MEDS: gabapentin 400 mg Capsule PO ×2 (12:12→18:18)
[2023-08-06 12:27] LABS: Glucose Point of Care 225 mg/dL (70-110)
--- NOTE | 2023-08-06 14:03 | PM.PN ---
Subjective Subjective: Patient was seen this morning, he denies any fevers, no chills, no nausea, no vomiting, his appetite is improving, continues to complain of a cough, off amiodarone, not on any pressors, Vitals/I&O/Wt Last Vital Signs Temp 98.3 F 08/06/23 09:00 Pulse 108 H 08/06/23 13:00 Resp 20 H 08/06/23 13:04 BP 130/90 08/06/23 13:00 Pulse Ox 97 08/06/23 13:00 O2 Del Method Room Air 08/06/23 09:00 O2 Flow Rate 2 08/04/23 20:32 FiO2 21 08/05/23 20:26 08/05/23 08/06/23 08/06/23 22:59 06:59 14:59 Intake Total 650 / 1321.275 250 / 1571.275 50 / 50 Output Total 550 / 1300 1350 / 2650 1600 / 1600 Balance 100 / 21.275 -1100 / -1078.725 -1550 / -1550 Weight last 48 hrs Weight 103.782 kg Physical Exam Const: COMMON NORMALS: no acute distress and patient oriented x3 Resp: COMMON NORMALS: normal respiratory effort, No retractions, No use of accessory muscles and clear to auscultation bilaterally AUSCULTATION: clear to auscultation bilaterally Cardio: COMMON NORMALS: regular rate, regular rhythm, S1 normal heart sound present and S2 normal heart sound present RATE: regular rate RHYTHM: regular rhythm HEART SOUNDS: S1 normal heart sound present and S2 normal heart sound present GI: COMMON NORMALS: Normal to inspection, nondistended, normoactive bowel sounds present and non-tender Extremity: COMMON NORMALS: no pedal edema Neuro: COMMON NORMALS: patient oriented x3 Psych: COMMON NORMALS: mental status grossly normal Urinary Catheter Management: Villanueva: Cath Placed During This Visit: no Reason for Continuing Indwelling Catheter: Accurate Measurement of Urinary Output in Critically Ill Patients Data 08/06/23 04:30 08/06/23 04:30 Micro: Microbiology 08/03/23 20:24 Urine Culture - Final Urine,Clean Catch Escherichia coli esbl A&P Assessment and plan (1) Sepsis: Qualifiers: Sepsis acute organ dysfunction status: with acute organ dysfunction Sepsis type: sepsis due to unspecified organism Severe sepsis acute organ dysfunction type: encephalopathy Severe sepsis shock status: without septic shock Qualified Code(s): A41.9 - Sepsis, unspecified organism; R65.20 - Severe sepsis without septic shock; G93.41 - Metabolic encephalopathy (2) Atrial fibrillation with rapid ventricular response: (3) Acute UTI: Urinary tract infection as evidenced by positive UA, awaiting urine culture. Background history of recurrent chronic cystitis. Currently on empiric coverage with meropenem as above. Await urine and blood cultures. (4) AMS (altered mental status): Qualifiers: Altered mental status type: somnolence Qualified Code(s): R40.0 - Somnolence (5) Urinary tract infection: (6) Systolic CHF, acute: (7) Acute exacerbation of CHF (congestive heart failure): (8) NSTEMI (non-ST elevated myocardial infarction): (9) BPH loc w urin obs/LUTS: (10) Diabetes mellitus, type II: Qualifiers: Diabetes mellitus residential insulin use: with residential use Diabetes mellitus complication status: with neurologic complications Diabetes mellitus complication detail: with polyneuropathy Qualified Code(s): E11.42 - Type 2 diabetes mellitus with diabetic polyneuropathy; 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 Secondary to urinary tract infection, ? Neurochecks, aspiration precautions -Advance diet as tolerated Right lower lobe pneumonia -Continue broad-spectrum antibiotic therapy -Aspiration precautions -Speech therapy eval Sepsis secondary to UTI, resolved ? Patient meets sepsis criteria given creatinine 2.0, A-fib with RVR, elevated lactic acid, febrile 101.1, CRP 151, Pro-Vik 12.3, white blood cell count 18.67 UTI/bilateral pyelonephritis ? History of bilateral hydroureteronephrosis ? History of urinary retention ? History of ESBL infections ?1. ? Perinephric edema bilaterally may reflect renal sufficiency, please correlate for pyelonephritis. 2. ? Right kidney nonobstructing calyceal stone. 3. ? Urinary bladder wall thickening with surrounding edema may reflect a cystitis, nondistention is also a consideration. 4. ? Villanueva catheter in the urinary bladder. 5. ? Diverticulosis without diverticulitis. 6. ? Anasarca. 7. ? Small bilateral right greater than left pleural effusions. 8. ? Small pericardial effusion measuring 6.6 mm in thickness. 9. ? Coronary artery atherosclerotic calcifications. 10. ? Right lower lobe atelectasis versus minimal infiltrate. 11. ? Hepatic steatosis. 12. ? Cholelithiasis. Plan ? Fever control ? Follow urine culture, blood cultures, ? Continue meropenem, ? Continue vancomycin A-fib with RVR, ? Anemia Xarelto on hold -Continue metoprolol ? Continue amiodarone drip, wean off to p.o. amiodarone Systolic CHF exacerbation, pulmonary edema, fluid overload, ? ABG ? BiPAP therapy ? Monitor respiratory status closely ? Monitor fluid status NSTEMI ? Type I versus type II, likely associate with sepsis, ? Serial EKGs, troponins, telemetry monitoring Lactic acidosis, secondary to sepsis as above, History of BPH, Diabetes mellitus: Insulin sliding scale Acute anemia ? Monitor hemoglobin closely ? Iron studies, evidence of early iron deficiency anemia ?, Hold Xarelto ? DVT prophylaxis: SCDs, Xarelto on hold Full code PUD prophylaxis: Protonix Attestations Medical Necessity Statement*: Patient requires hospitalization for altered mental status, UTI, NSTEMI, bilateral pyelonephritis, pneumonia, afib Diagnoses Sepsis A41.9; R65.20; G93.41 Sepsis acute organ dysfunction status: with acute organ dysfunction Sepsis type: sepsis due to unspecified organism Severe sepsis acute organ dysfunction type: encephalopathy Severe sepsis shock status: without septic shock Atrial fibrillation with rapid ventricular response I48.91 Acute UTI N39.0 AMS (altered mental status) R40.0 Altered mental status type: somnolence Urinary tract infection N39.0 Systolic CHF, acute I50.21 Acute exacerbation of CHF (congestive heart failure) I50.9 NSTEMI (non-ST elevated myocardial infarction) I21.4 BPH loc w urin obs/LUTS N40.1 Diabetes mellitus, type II E11.42; Z79.4 Diabetes mellitus residential insulin use: with residential use Diabetes mellitus complication status: with neurologic complications Diabetes mellitus complication detail: with polyneuropathy Hyperlipemia, mixed E78.2 Acidosis, lactic E87.2 Pyelonephritis N12 Right lower lobe pneumonia J18.9
--- NOTE | 2023-08-06 16:50 | PC.NURSE ---
Transfer Note Patient transferred to med-surg room 252-2 from ICU via wheelchair. Handoff report given to SHELLY Little. Patient oriented to environment and equipment. Covering service notified. Orders reviewed and will continue to monitor. Family notified.
[2023-08-06] MEDS: vancomycin 1,500 MG/300 ML PIGGYBACK 200 MG IV (16:55)
[2023-08-06 17:05] LABS: Glucose Point of Care 138 mg/dL (70-110)
[2023-08-06] MEDS: tamsulosin 0.4 mg Capsule PO (18:17)
[2023-08-06] MEDS: atorvastatin 40 mg Tablet PO (18:18)
[2023-08-06 20:55] LABS: Glucose Point of Care 199 mg/dL (70-110)
[2023-08-06] MEDS: benzonatate 100 mg Capsule 200 MG PO (22:15)
[2023-08-07 03:11] VITALS: BP 142/97; PULSE 107; RESP 14; TEMP 36.9; O2SAT 96
[2023-08-07] MEDS: gabapentin 400 mg Capsule PO ×2 (03:37→13:09)
[2023-08-07 04:54] LABS: Basophils # 0.1 10^3/uL (0.0-0.1); Basophils % 0.6 %; Eosinophils # 0.5 10^3/uL (0.0-0.8); Eosinophils % 5.2 %; Hematocrit 24.3 % (37-53); Lymphocytes % 19.8 %; Mean Corpuscular HGB Conc 31.7 g/dL (30-55); Mean Corpuscular Hemoglobin 27.1 pg (27-33); Mean Corpuscular Volume 85.6 fl (82-101); Monocytes # 0.9 10^3/uL (0.2-0.9); Monocytes % 8.6 %; Neutrophils # 6.55 10^3/uL (1.8-7.7); Neutrophils % 65.4 %; Nucleated Red Blood Cells % 0 %; Platelet Count 282 10^3/cmm (157-399); Red Blood Count 2.84 10^6/uL (3.85-5.65); Red Cell Distribution Width 15.9 % (12.1-15.1); White Blood Count 10.01 10^3/uL (3.29-11.43)
[2023-08-07 05:13] LABS: Lactate (Lactic Acid level) 0.7 mmol/L (0.5-2.2)
[2023-08-07 05:14] LABS: Alanine Aminotransferase 8 U/L (0-41); Albumin Level 3.3 g/dL (3.5-5.2); Alkaline Phosphatase 66 U/L (40-130); Anion Gap 15.9 (5-19); Aspartate Amino Transferase 9 U/L (0-40); Blood Urea Nitrogen 29 mg/dL (8-23); C Reactive Protein 64.6 mg/L (0.0-4.9); Calcium 9.2 mg/dL (8.5-10.5); Carbon Dioxide 22 mmol/L (22-29); Chloride 103 mmol/L (98-107); Globulin 3.1 g/dL (1.3-4.6); Glucose 148 mg/dL (65-115); Magnesium 1.9 mg/dL (1.7-2.3); Osmolality Calculated 293 mOsm/kg (285-295); Phosphorus 3.4 mg/dL (2.5-4.5); Potassium 3.9 mmol/L (3.5-5.1); Sodium 137 mmol/L (136-145); Total Bilirubin 0.3 mg/dL (0.15-1.2); Total Protein 6.4 g/dL (6.6-8.7)
[2023-08-07 05:27] LABS: NT Pro B Type Natriuretic Pept 3320 pg/mL (0-125)
[2023-08-07 05:44] LABS: Creatine Phosphokinase 29 U/L (39-308)
[2023-08-07] MEDS: metoprolol tartrate 50 mg Tablet 100 MG PO (06:08)
[2023-08-07] MEDS: finasteride 5 mg Tablet PO (06:08)
[2023-08-07 06:35] LABS: Procalcitonin 2.62 ng/mL (0-0.5)
[2023-08-07 06:56] LABS: Glucose Point of Care 161 mg/dL (70-110)
[2023-08-07 07:22] VITALS: BP 116/76; PULSE 102; RESP 18; TEMP 36.8; O2SAT 95
[2023-08-07] MEDS: benzonatate 100 mg Capsule 200 MG PO (08:26)
[2023-08-07] MEDS: pantoprazole DR 40 mg Tablet PO (08:26)
[2023-08-07] MEDS: amiodarone 200 mg Tablet 400 MG PO (08:26)
[2023-08-07] MEDS: insulin lispro 100 unit/1 mL SUBCUT ×2 (08:26→13:09)
[2023-08-07] MEDS: methocarbamol 750 mg Tablet PO (08:26)
[2023-08-07] MEDS: acetaminophen 325 mg Tablet 650 MG PO (08:27)
[2023-08-07] MEDS: meropenem 1,000 MG in sodium chloride 0.9% (plus) 50 ML 100 MG IV (08:27)
[2023-08-07 08:40] VITALS: PULSE 100; O2SAT 95
--- NOTE | 2023-08-07 08:50 | PC.SOCIAL ---
IMM Updated Updated pt on IMM. No questions voiced. Provided pt a copy. Initialed, dated, & timed copy in chart.
--- NOTE | 2023-08-07 10:14 | XR_ITS ---
WS: [id number] CHEST XRAY TECHNIQUE: Portable chest. CLINICAL INFORMATION: post PICC insertion COMPARISON: 08/05/2023 FINDINGS: RIGHT PICC line with tip in the distal SVC. Heart: Normal cardiac silhouette. Lungs: Lungs are clear. No consolidation or pleural effusion. Bones: Normal visualized bony structures. IMPRESSION: RIGHT PICC line with tip in the distal SVC. No pneumothorax.
--- NOTE | 2023-08-07 11:00 | PC.NURSE ---
Single lumen PICC placed to right basilic vein. Referred for PICC placement due to need for IV antibiotics greater than 14 days. Risks and benefits discussed and informed consent obtained from patient. Right arm assessed with right basilic vein measuring 6.0 mm, straight, and apparent best choice for placement. Using sterile technique and MST, right basilic vein accessed x 1 stick. Mid-arm circumference measured 10 cm from right AC 30.5 cm. Trimmed cath 45 cm with 0 cm external length noted. CXR shows tip in distal SVC, in good position for use per radiologist. Line secured with stat-lock. Insertion site covered with Biopatch and TSM. Report given to bedside nurseEle.
[2023-08-07 11:37] LABS: Glucose Point of Care 203 mg/dL (70-110)
[2023-08-07 12:21] VITALS: BP 127/68; PULSE 78; RESP 18; TEMP 36.6; O2SAT 96
--- NOTE | 2023-08-07 12:27 | PM.DCS ---
Discharge Providers Date of Admission: 08/03/23 22:45 Date of Discharge: August 07, 2023 Attending Provider at Admission: Suzi Coats MD Attending Provider at Discharge: Omari Lopez MD Primary Care Provider: Trisha Urena MD Diagnoses at Discharge Discharge Diagnosis (1) Sepsis: Status: Acute Qualifiers: Sepsis acute organ dysfunction status: with acute organ dysfunction Sepsis type: sepsis due to unspecified organism Severe sepsis acute organ dysfunction type: encephalopathy Severe sepsis shock status: without septic shock Qualified Code(s): A41.9 - Sepsis, unspecified organism; R65.20 - Severe sepsis without septic shock; G93.41 - Metabolic encephalopathy (2) Atrial fibrillation with rapid ventricular response: Status: Acute (3) Acute UTI: Status: Acute (4) AMS (altered mental status): Status: Acute Qualifiers: Altered mental status type: somnolence Qualified Code(s): R40.0 - Somnolence (5) Urinary tract infection: Status: Inactive (6) Systolic CHF, acute: Status: Acute (7) Acute exacerbation of CHF (congestive heart failure): Status: Resolved (8) NSTEMI (non-ST elevated myocardial infarction): Status: Acute (9) BPH loc w urin obs/LUTS: Status: Chronic (10) Diabetes mellitus, type II: Status: Chronic Qualifiers: Diabetes mellitus complication detail: with polyneuropathy Diabetes mellitus complication status: with neurologic complications Diabetes mellitus iron molder helper insulin use: with iron molder helper use Qualified Code(s): E11.42 - Type 2 diabetes mellitus with diabetic polyneuropathy; Z79.4 - intermediate (current) use of insulin (11) Hyperlipemia, mixed: Status: Acute (12) Acidosis, lactic: Status: Resolved (13) Pyelonephritis: Status: Acute (14) Right lower lobe pneumonia: Status: Acute Reason for Visit Reason for Visit: possible sepsis Hospital Course Hospital Course Raphael Deal is a 73 year old male with history of type 2 diabetes, BPH, previous history of ureteral stent removed by Dr. Paul, presented to hospital from SNF with chief complaint of fever and altered mental status.? No direct history is available from the patient as he is currently confused.? Per report from EMS, patient has been having fever for the last 2 to 3 days, he has had a slight cough and has overall been appearing unwell.? Upon presentation to the ER he had temperature up to 103 Fahrenheit.? He was also noted to be in A-fib with RVR with a heart rate of 160/min.? He was started on amiodarone infusion after receiving a 150 mg bolus in the ER. He is pleasantly confused.? Denies any pain at this time.? He is able to correctly state his name and the fact that he is in a hospital but not much else.? Patient requires hospitalization for altered mental status secondary to UTI, pneumonia, resolved on discharge Right lower lobe pneumonia, managed with antibiotic therapy, For sepsis secondary to UTI, pyelonephritis, history of ESBL infections, had ESBL E. coli in urine, managed with meropenem as inpatient, blood cultures so far negative, discharged on Invanz for 10 days, A-fib with RVR, went in to A-fib with RVR during hospitalization required amiodarone drip, discharged on amiodarone taper as outpatient For patient's lactic acidosis secondary sepsis, resolved Patient had anemia during his hospitalization hemoglobin down to 7.5, no blood required, he is on Xarelto, this has been held on discharge, could be multifactorial from bone marrow suppression from his sepsis secondary to UTI, meropenem, denies any bloody or black stools, no hemodynamic compromise, nonetheless I have held his Xarelto for at least a week, follow-up with primary care as outpatient or cardiology to repeat hemoglobin, decision to resume anticoagulation is based on shared decision making between patient and cardiology or primary care, at discharge, Protonix, Carafate, nonetheless recheck hemoglobin in 1 week, I had extensive discussion with patient about his risk of strokes not on anticoagulation, shared decision making, after discussing risk and benefits, he boisterously, all consents are, agreed to hold Xarelto given his acute anemia, decision to resume again based upon consultation and discussion with cardiology and primary care. I have also have had an appointment general surgery to consider EGD colonoscopy in 1 month. NSTEMI, likely secondary to sepsis, resolved CHF exacerbation during his hospitalization pulm edema fluid overload requiring BiPAP therapy, received diuresis as inpatient, overall improved Physical Exam Const: COMMON NORMALS: no acute distress and patient oriented x3 Resp: COMMON NORMALS: normal respiratory effort, No retractions, No use of accessory muscles and clear to auscultation bilaterally AUSCULTATION: clear to auscultation bilaterally Cardio: COMMON NORMALS: regular rate, regular rhythm, S1 normal heart sound present and S2 normal heart sound present RATE: regular rate RHYTHM: regular rhythm HEART SOUNDS: S1 normal heart sound present and S2 normal heart sound present GI: COMMON NORMALS: Normal to inspection, nondistended, normoactive bowel sounds present and non-tender Extremity: COMMON NORMALS: no pedal edema Neuro: COMMON NORMALS: patient oriented x3 Psych: COMMON NORMALS: mental status grossly normal Urinary Catheter Management: Villanueva: Cath Placed During This Visit: no Reason for Continuing Indwelling Catheter: Chronic Indwelling Urinary Catheter on Admission Discharge Data Studies Completed and Pending Completed Studies During Hospitalization Category Date Time Status CT abdomen pelvis wo con [id number] Stat Cat Scan 08/03/23 19:[address] head wo con* [id number] Stat Cat Scan 08/03/23 19:48 Completed CXRP [XR chest 1V portable [id number]] Routine Exams 08/07/23 10:14 Completed XR chest 1V portable [id number] Routine Exams 08/04/23 11:59 Completed XR chest 1V portable [id number] Routine Exams 08/05/23 07:00 Completed XR chest 1V portable [id number] Stat Exams 08/03/23 19:46 Completed Pending at discharge Category Date Time Status Blood Culture Stat Lab 08/03/23 20:06 Results Occult Blood Stool [Immunochemical Fecal OCB] Routine Lab 08/05/23 08:14 Uncollected Radiology Impressions Abdomen/Pelvis CT 08/03/23 19:48 IMPRESSION: 1. Perinephric edema bilaterally may reflect renal sufficiency, please correlate for pyelonephritis. 2. Right kidney nonobstructing calyceal stone. 3. Urinary bladder wall thickening with surrounding edema may reflect a cystitis, nondistention is also a consideration. 4. Villanueva catheter in the urinary bladder. 5. Diverticulosis without diverticulitis. 6. Anasarca. 7. Small bilateral right greater than left pleural effusions. 8. Small pericardial effusion measuring 6.6 mm in thickness. 9. Coronary artery atherosclerotic calcifications. 10. Right lower lobe atelectasis versus minimal infiltrate. 11. Hepatic steatosis. 12. Cholelithiasis. Head CT 08/03/23 19:48 IMPRESSION: Negative for intracranial hemorrhage or mass effect. Laboratory Results WBC 10.01 10^3/uL (3.29-11.43) 08/07/23 04:47 RBC 2.84 10^6/uL (3.85-5.65) L 08/07/23 04:47 Hgb 7.70 g/dL (11.27-16.99) L 08/07/23 04:47 Hct 24.3 % (37-53) L 08/07/23 04:47 MCV 85.6 fl (82-101) 08/07/23 04:47 MCH 27.1 pg (27-33) 08/07/23 04:47 MCHC 31.7 g/dL (30-55) 08/07/23 04:47 RDW 15.9 % (12.1-15.1) H 08/07/23 04:47 Plt Count 282 10^3/cmm (157-399) 08/07/23 04:47 MPV 10.0 fL (7.4-10.4) 08/07/23 04:47 Neut % (Auto) 65.4 % 08/07/23 04:47 Lymph % (Auto) 19.8 % 08/07/23 04:47 [place] % (Auto) 8.6 % 08/07/23 04:47 Eos % (Auto) 5.2 % 08/07/23 04:47 Baso % (Auto) 0.6 % 08/07/23 04:47 Neut # (Auto) 6.55 10^3/uL (1.8-7.7) 08/07/23 04:47 Lymph # (Auto) 2.0 10^3/uL (0.8-4.8) 08/07/23 04:47 [place] # (Auto) 0.9 10^3/uL (0.2-0.9) 08/07/23 04:47 Eos # (Auto) 0.5 10^3/uL (0.0-0.8) 08/07/23 04:47 Baso # (Auto) 0.1 10^3/uL (0.0-0.1) 08/07/23 04:47 Nucleated RBC % (auto) 0 % 08/07/23 04:47 Nucleated RBCs # 0.0 /100WBC 08/07/23 04:47 PT 27.80 SECONDS (12.1-14.9) H 08/03/23 20:05 INR 2.49 (0.8-1.2) H 08/03/23 20:05 Specimen Type Arterial 08/04/23 12:07 Sample Site Radial, left 08/04/23 12:07 ABG pH 7.37 (7.35-7.45) 08/04/23 12:07 ABG pCO2 37.6 mmHg (35-45) 08/04/23 12:07 ABG pO2 77.7 mmHg (80.0-100.0) L 08/04/23 12:07 ABG HCO3 21.5 mmol/L (22-26) L 08/04/23 12:07 ABG O2 Saturation 96.3 08/04/23 12:07 ABG Base Excess -3.5 mmol/L (-2.0-2.0) L 08/04/23 12:07 Stevenson Test Pos 08/04/23 12:07 A-a O2 Gradient 3.4 mmHg (5-10) L 08/04/23 12:07 Hematocrit 24.9 % (42-52) L 08/04/23 12:07 Hgb O2 Saturation 93.8 % (95-100) L 08/04/23 12:07 Carboxyhemoglobin 2.3 %THgb (0.4-20.1) 08/04/23 12:07 Methemoglobin 0.3 % (0.4-1.5) L 08/04/23 12:07 Total Hemoglobin 8.1 g/dL (14-18) L 08/04/23 12:07 Sodium 138.0 mmol/L (131-143) 08/04/23 12:07 Potassium 4.6 mmol/L (3.5-5.0) 08/04/23 12:07 Glucose 159.0 mg/dL (70-115) H 08/04/23 12:07 Ionized Calcium 1.2 mmol/L (1.1-1.4) 08/04/23 12:07 O2 Delivery Device Room air 08/04/23 12:07 FiO2 21.0 % 08/04/23 12:07 Correctional Officer Lieutenant ID Cak 08/04/23 12:07 Sodium 137 mmol/L (136-145) 08/07/23 04:47 Potassium 3.9 mmol/L (3.5-5.1) 08/07/23 04:47 Chloride 103 mmol/L (98-107) 08/07/23 04:47 Carbon Dioxide 22 mmol/L (22-29) 08/07/23 04:47 Anion Gap 15.9 (5-19) 08/07/23 04:47 BUN 29 mg/dL (8-23) H 08/07/23 04:47 Creatinine 1.5 mg/dL (0.7-1.2) H 08/07/23 04:47 GFR Calculation Not Reportable 08/07/23 04:47 Glucose 148 mg/dL (65-115) H 08/07/23 04:47 POC Glucose 203 mg/dL (70-110) H 08/07/23 11:26 Calculated Osmolality 293 mOsm/kg (285-295) 08/07/23 04:47 Lactic Acid 2.8 mmol/L (0.5-2.2) H 08/03/23 20:05 Lactic Acid (Sepsis) 1.7 mmol/L (0.5-2.2) 08/03/23 22:18 Lactate 0.7 mmol/L (0.5-2.2) 08/07/23 04:47 Calcium 9.2 mg/dL (8.5-10.5) 08/07/23 04:47 Phosphorus 3.4 mg/dL (2.5-4.5) 08/07/23 04:47 Magnesium 1.9 mg/dL (1.7-2.3) 08/07/23 04:47 Iron 20 ug/dL (59-158) L 08/05/23 05:00 TIBC 218 mcg/dl 08/05/23 05:00 % Saturation 9.1 % (20-50) L 08/05/23 05:00 Unsat Iron Binding 198 ug/dL (112-347) 08/05/23 05:00 Ferritin 103 ng/mL (30-400) 08/05/23 05:00 Total Bilirubin 0.3 mg/dL (0.15-1.2) 08/07/23 04:47 AST 9 U/L (0-40) 08/07/23 04:47 ALT 8 U/L (0-41) 08/07/23 04:47 Alkaline Phosphatase 66 U/L (40-130) 08/07/23 04:47 Creatine Kinase 29 U/L (39-308) L 08/07/23 04:47 Troponin T Baseline 57 ng/L (0-15) H 08/04/23 13:35 Troponin T 120 Minute 51.44 ng/L (0-15) H 08/04/23 16:00 Delta Troponin T -5.56 ABS# (0-10) L 08/04/23 16:00 Troponin T Hi Sens 6Hr 49.50 ng/L (0-15) H 08/04/23 20:00 Troponin T Hi Sens 6Hr Delta -7.50 ng/L (0-12) L 08/04/23 20:00 C-Reactive Protein 64.6 mg/L (0.0-4.9) H 08/07/23 04:47 NT-Pro-B Natriuret Pep 3320 pg/mL (0-125) H 08/07/23 04:47 Total Protein 6.4 g/dL (6.6-8.7) L 08/07/23 04:47 Albumin 3.3 g/dL (3.5-5.2) L 08/07/23 04:47 Globulin 3.1 g/dL (1.3-4.6) 08/07/23 04:47 Procalcitonin 2.62 ng/mL (0-0.5) H 08/07/23 04:47 Urine Color Yellow (Yellow) 08/03/23 20:24 Urine Appearance Cloudy (CLEAR) A 08/03/23 20:24 Urine pH 5 (5-7) 08/03/23 20:24 Ur Specific [place] 1.010 (1.005-1.030) 08/03/23 20:24 Urine Protein 3+ (Negative) H 08/03/23 20:24 Urine Glucose (UA) Norm (Normal) 08/03/23 20:24 Urine Ketones 1+ (Negative) H 08/03/23 20:24 Urine Blood 3+ (Negative) H 08/03/23 20:24 Urine Nitrate Negative (Negative) 08/03/23 20:24 Urine Bilirubin Neg (Negative) 08/03/23 20:24 Urine Urobilinogen Neg mg/dL (Negative) 08/03/23 20:24 Ur Leukocyte Esterase 2+ (Negative) H 08/03/23 20:24 Urine RBC 40-50 /hpf (0-2) H 08/03/23 20:24 Urine WBC 80-100 /hpf (0-5) H 08/03/23 20:24 Ur Squamous Epith Cells None /hpf (0-5) 08/03/23 20:24 Amorphous Sediment Not Reportable 08/03/23 20:24 Urine Bacteria 2+ /hpf (NONE) H 08/03/23 20:24 Urine Yeast 2+ /hpf H 08/03/23 20:24 Influenza Type A Ag Negative (Negative) 08/03/23 20:24 Influenza Type B Ag Negative (Negative) 08/03/23 20:24 SARS-CoV-2 Ag (Rapid) Negative (Negative) 08/03/23 20:24 Vitals Last Vital Signs Temp 97.8 F 08/07/23 12:21 Pulse 78 08/07/23 12:21 Resp 18 08/07/23 12:21 BP 127/68 08/07/23 12:21 Pulse Ox 96 08/07/23 12:21 O2 Del Method Room Air 08/07/23 12:21 O2 Flow Rate 2 08/04/23 20:32 FiO2 21 08/05/23 20:26 Discharge Plan Discharge Patient Disposition: Xfer SNF Condition: Stable Prescriptions: New pantoprazole 40 mg Tablet,Delayed Release (Dr/Ec) 40 mg PO BIDWM 30 Days Qty: 60 0RF amiodarone [Pacerone] 200 mg Tablet See Rx Instructions .ROUTE .COMPLEX Qty: 60 0RF Rx Instructions: 1 tab bid for 15 days, then 1 tab daily ertapenem 1 gram recon soln 1 g IV DAILY 10 Days Qty: 10 0RF Continued (DME) Dexcom G6 Supervisory Investigative Specialist Misc See Rx Instructions .Route Qty: 1 0RF Rx Instructions: Check BS 4-6 times a day. metformin 500 mg tablet 500 mg PO DAILY (DME) Dexcom G6 Sensor Device See Rx Instructions .ROUTE .COMPLEX Qty: 9 0RF Dose Instruction: USE 1 SENSOR UNDER THE SKIN EVERY 10 DAYS CHANGE SENSOR/SITE EVERY 10 DAYS. CONTACT [facility] AT FOR REPLACEMENT OF DAMAGED/MALFUNCTIONING SENSORS. Rx Instructions: as directed (DME) Dexcom G6 Transmitter Device See Rx Instructions .Route Qty: 1 3RF Rx Instructions: Change every 90 days. fluticasone propion-salmeterol [Wixela Inhub] 100-50 mcg/dose Blister With Device 1 inh INHALATION BID albuterol sulfate [ProAir HFA] 90 mcg/actuation HFA aerosol inhaler 2 puff INHALATION Q4H PRN (Reason: Shortness Of Breath) rosuvastatin 40 mg tablet 40 mg PO BEDTIME@19 tamsulosin 0.4 mg capsule 0.4 mg PO BEDTIME@19 gabapentin 400 mg Capsule 400 mg PO TID cyanocobalamin (vitamin B-12) [Vitamin B-12] 1,000 mcg Tablet 1,000 mcg PO DAILY@07 bisacodyl [Dulcolax (bisacodyl)] 10 mg Suppository 10 mg CA DAILY PRN (Reason: Constipation) Rx Instructions: if no bm x 3 days fluticasone propionate [Flonase] 50 mcg/actuation [place],Suspension 2 spray INTRANASAL DAILY@07 Rx Instructions: administer into each nostril finasteride 5 mg Tablet 5 mg PO DAILY@07 coenzyme Q10 30 mg Capsule 30 mg PO DAILY@07 menthol-zinc oxide [Calmoseptine] 0.44-20.6 % ointment See Rx Instructions .ROUTE .COMPLEX Rx Instructions: apply to bilateral buttocks every shift for prevention acetaminophen [Tylenol] 325 mg Tablet 650 mg PO Q6H PRN (Reason: Pain) metoprolol tartrate 100 mg Tablet 100 mg PO BID@07, Thera Tablet 1 tab PO DAILY@07 melatonin 1 mg Tablet 1 mg PO BEDTIME@1930 cholecalciferol (vitamin D3) [Vitamin D3] 25 mcg (1,000 unit) Tablet 25 mcg PO DAILY@07 galantamine 4 mg tablet 4 mg PO BID mometasone 50 mcg/actuation [place],Non-Aerosol 1 spray INTRANASAL BID Rx Instructions: administer into each nostril Changed methocarbamol 750 mg tablet 750 mg PO Q12H PRN (Reason: muscle spasm) 5 Days Qty: 10 0RF insulin aspart U-100 [Novolog FlexPen U-100 Insulin] 100 unit/mL (3 mL) insulin pen See Rx Instructions .ROUTE .COMPLEX Qty: 15 0RF Rx Instructions: inject, subcut, tid after meals, based on insulin sliding scale insulin glargine [Lantus Solostar U-100 Insulin] 100 unit/mL (3 mL) insulin pen 5 unit SUBCUT Q24H 30 Days Qty: 15 0RF Held Xarelto 20 mg Tablet 20 mg PO DAILY@16 Hold Instructions: Resume on 08/17/23. hold for at least 1 week, resume once hgb resonable, ofllo wup with crdilogy Rx Instructions: must administer with evening meal Discontinued diltiazem HCl 60 mg tablet 60 mg PO Q8H Discharge Orders: Discharge Order (Routine); Ordered 08/07/23 Ordered By: Omari Lopez Referrals: Jose May MD [Physician] - 1 month (anemia, egd and colonsocpy) Aleks Narvaez M.D [Physician] - 1 week Trisha Urena MD [Primary Care Provider] - Discharge Diet: Cardiac Discharge Activity: Resume usual activity Patient Instructions: Opioid Safety Activity Restrictions/Additional Instructions: -Ertapenem, 1 g every 24 hours, for the 10 remaining days, thereafter remove PICC line, ? Recheck CBC and CMP in 7 days -Please monitor your blood sugars closely -Monitor your blood sugars 3 times daily as after meals -Please record your blood sugars, and a blood sugar log -For your NovoLog -Please inject blood sugar after meals based on sliding scale provided -Do not inject insulin if you do not eat as hypoglycemia kills -This is a NovoLog sliding scale -Insulin sliding ?fingerstick? Insulin ?141-180?0 units/sq 181-220?2 units/sq ?221-260?4 units/sq ?261-300 6 units/sq ?301-350?8 units/sq ?351-400 10 units/sq ?401-450?12 units/sq >450? 14units/sq -If your blood sugar is greater than 500 go to the emergency room -If your blood sugar is less than 60 or at anytime you feel lightheaded or dizzy or diaphoretic or have chest palpitations check your blood sugar, and eat a hard candy or drink orange juice and go immediately to the emergency room -Remember hypoglycemia kills, so?if his blood sugar is less than 60 we have to increase it by taking in a sugary meal such as a hard candy or orange juice and go to the emergency room -If you have any questions please call us where here to help -Hold Xarelto, for at least 1 week, recheck hemoglobin in 1 week, have patient follow-up with cardiology, decision when to resume anticoagulation based on shared decision making with patient and cardiology based on hemoglobin ? Follow-up with general surgery in 2 weeks Discharge Attestations Time Spent in Discharge Care*: greater than 30 min Status at Discharge: Cognitive status at discharge: cognitively intact, Behavioral status at discharge: cooperative, Quality Metrics Clinical Quality Measures [ No reported AMI, CVA or VTE this stay] Coding Level of Care Code Acute Code for Chg Fwd Diagnoses Sepsis A41.9; R65.20; G93.41 Sepsis acute organ dysfunction status: with acute organ dysfunction Sepsis type: sepsis due to unspecified organism Severe sepsis acute organ dysfunction type: encephalopathy Severe sepsis shock status: without septic shock Atrial fibrillation with rapid ventricular response I48.91 Acute UTI N39.0 AMS (altered mental status) R40.0 Altered mental status type: somnolence Urinary tract infection N39.0 Systolic CHF, acute I50.21 Acute exacerbation of CHF (congestive heart failure) I50.9 NSTEMI (non-ST elevated myocardial infarction) I21.4 BPH loc w urin obs/LUTS N40.1 Diabetes mellitus, type II E11.42; Z79.4 Diabetes mellitus complication detail: with polyneuropathy Diabetes mellitus complication status: with neurologic complications Diabetes mellitus iron molder helper insulin use: with chcf use Hyperlipemia, mixed E78.2 Acidosis, lactic E87.2 Pyelonephritis N12 Right lower lobe pneumonia J18.9
[2023-08-07] MEDS: FUROsemide 10 mg/mL SDV 4mL 40 MG IVP (13:09)
[2023-08-07 16:13] VITALS: BP 127/68; PULSE 78; RESP 18; TEMP 36.6; O2SAT 96
== END 2023-08-07 15:20 | disposition skilled nursing facility (03) | DRG 871 ==
LOC: ER 22:27 → ICU 22:46 → MEDSURG 08-06 17:20
PROVIDERS: Admitting Provider Student in an Organized Health Care Education/Training Program; Emergency Provider Emergency Medicine; PCP Family Medicine; Visit Provider Family Medicine
DX: A41.9 Sepsis, unspecified organism (principal); G93.41 Metabolic encephalopathy; J18.9 Pneumonia, unspecified organism; I21.4 Non-ST elevation (NSTEMI) myocardial infarction; I50.23 Acute on chronic systolic (congestive) heart failure; N12 Tubulo-interstitial nephritis, not specified as acute or chronic; E87.20 Acidosis, unspecified; N13.8 Other obstructive and reflux uropathy; R65.20 Severe sepsis without septic shock; D64.9 Anemia, unspecified; Z86.16 Personal history of COVID-19; G47.33 Obstructive sleep apnea (adult) (pediatric); I11.0 Hypertensive heart disease with heart failure; E11.42 Type 2 diabetes mellitus with diabetic polyneuropathy; Z79.4 Long term (current) use of insulin; N40.1 Benign prostatic hyperplasia with lower urinary tract symptoms; G30.9 Alzheimer's disease, unspecified; F02.80 Dementia in other diseases classified elsewhere, unspecified severity, without behavioral disturbance, psychotic disturbance, mood disturbance, and anxiety; I48.91 Unspecified atrial fibrillation
CPT/HCPCS: 36415; 36416; 36573; 36600; 70450; 71045; 74176; 80051; 80053; 81001; 82330; 82550; 82728; 82805; 82962; 83540; 83550; 83605; 83735; 83880; 84100; 84145; 84484; 85014; 85018; 85025; 85610; 86140; 87040; 87077; 87086; 87186; 87426; 87804; 92526; 92610; 93005; 94660; 96365; 96366; 96367; 96372; 96375; 96376; 97110; 97116; 97161; 97167; 97530; 99291; A4222; J0131; J0282; J1815; J1885; J1940; J2185; J2270; J2405; J2543; J3370; J3490; J7030; J7050; J7060

== ENCOUNTER 2023-09-18 20:52 | Emergency (ER) | payer OTHER, SELFPAY ==
[2023-09-18 20:56] VITALS: BP 112/74; PULSE 113; RESP 25; TEMP 37.2; O2SAT 95; BMI 33.4
[2023-09-18 21:01] LABS: Glucose Point of Care 395 mg/dL (70-110)
--- NOTE | 2023-09-18 21:04 | XRR_ITS ---
PROCEDURE INFORMATION: Exam: XR Chest Exam date and time: 09/18/2023 9:18 PM Age: 73 years old Clinical indication: Patient HX: AMS; Cough; Diabetes TECHNIQUE: Imaging protocol: Radiologic exam of the chest. Views: 1 view. COMPARISON: CR XR chest 1V portable [id number] 08/07/2023 10:59 AM FINDINGS: Lungs: Unremarkable. No consolidation. Pleural spaces: Unremarkable. No pleural effusion. No pneumothorax. Heart/Mediastinum: Mild cardiomegaly. Bones/joints: Unremarkable. XR/XR chest 1V portable [id number] IMPRESSION: 1. No acute findings. 2. Mild cardiomegaly.
--- NOTE | 2023-09-18 21:12 | ED_ITS ---
HPI - Altered Mental Status 2 General: Chief Complaint: Altered Mental Status Stated Complaint: AMS Time Seen by Provider: 09/18/23 21:04 History of Present Illness: 73-year-old male presents to the emergen cy department from his long-term care facility via EMS personnel. The long-term care facility staff state that he appears to be slightly more confused than usual they state that he is just finished an antibiotic for urinary tract infection. He does appear to have an indwelling Villanueva catheter and the urine does appear to be significantly cloudy. He does appear to be pleasantly confused and is following commands appropriately. He denies pain. He denies nausea vomiting fevers chills or night sweats. He states he feels fine and is unsure as to why he is here in the emergency department. Review of Systems 2 General: Reports: 10 or more systems reviewed and unremarkable except in HPI and below Const: Reports: malaise : Reports: other (Cloudy urine in his Villanueva); Denies: difficulty urinating, dysuria or urinary frequency PFSH ED 2 PFSH: Medical History Alzheimer disease Anemia Atrial fibrillation Bacteriuria BPH loc w urin obs/LUTS Cervicalgia of svotrcid-gktozbs-unbyx region Chronic anticoagulation Taken off Xarelto secondary to hematuria Diabetes mellitus, type II Diabetic foot ulcer 08/2021 - treated with I&D, antibiotics and wound care clinic management 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 mellitus 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 mellitus Gait instability H/O prostate cancer Hematuria due to acute cystitis History of cardiovascular stress test 05/2021 normal EKG response, perfusion study without findings of ischemia History of Doppler ultrasound 08/2021 venous no DVT BLE 08/2021 arterial patent vessels, left posterior tibial may be less than 60% stenosis, left dorsalis pedis not visualized History of echocardiogram 05/2021 EF 65% History of electromyography 01/23 Interpretation: The study provides electrodiagnostic evidence for an axonal sensorimotor polyneuropathy based on small or absent CMAPs and SNAPs with denervation seen distally on EMG. The study is limited for evaluation of lumbar radiculopathy related to the patient's anticoagulated state. History of sleep study 02/22 limited sleep, no apnea noted but did have nocturnal hypoxemia, recommended to use nocturnal oxygen HTN (hypertension) previously on treatment for high blood pressure Intermittent self-catheterization of bladder due to urinary retention Left ureteral calculus Lumbar stenosis L2/3, L3/4, L4/L5, with radiculopathy right lower extremity Lumbar stenosis with neurogenic claudication Mild cognitive impairment with memory loss Obstructive pyelonephritis 09/2021 required ureteral stent placement Obstructive sleep apnea Refuses CPAP SARS-CoV-2 positive positive test 11/17/2021 symptoms weakness, hypoglycemia, altered mental status and low grade fever Yeast UTI Surgical History H/O esophagogastroduodenoscopy (10/30/21) 10/2021 pedunculated polyps removed from first portion of duodenum, otherwise normal History of back surgery History of colonoscopy (10/30/21) 11/2021 diverticulosis of sigmoid colon and internal hemorrhoids, sessile polyps removed History of laminectomy 03/25 bilateral with partial facetectomies at L2-3, L3-4, L4-[address] Smith History of pilonidal cyst Other postprocedural status history of radiofrequency ablation for back pain x 2 S/P appendectomy S/P tonsillectomy S/P ureteral stent placement (09/2021) subsequent removal Status post excisional debridement 08/2021 left foot Status post laser lithotripsy of ureteral calculus (11/06/21) Family History Grandmother Heart disease Hypertension Grandfather Hypertension MATERNAL Diabetes Mother No problems noted. Father No problems noted. 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 Vital signs as documented. No acute distress at present. Alert and oriented-to person, place, and situation. He is very pleasant and cooperative Head, eyes, ears, nose, mouth, throat: Normocephalic, atraumatic. Pupils-equal, round, reactive to light. No scleral icterus. Normal-appearing external ears. Normal appearing nasal turbinates, no drainage. No obvious oral lesions, posterior oropharynx without erythema or exudates. Neck: Supple, trachea is midline, no lymphadenopathy, no jugular venous distension, thyromegaly, or carotid bruits. Carotid upstrokes are brisk bilaterally. Lungs: clear to auscultation to all lung parikh. Symmetrical rise and fall of chest, no obvious signs of increased work of breathing at present. Cardiac: Regular rate and rhythm, positive S1, S2. No murmurs, rubs or gallops that I can appreciate Abdomen: Soft, non-tender to palpation, normal active bowel sounds to all quadrants. No palpable masses, no organomegaly and abdominal bruits. He does have an indwelling Villanueva catheter that has significantly cloudy urine with sediment noted. Extremities: 2+ pulses in the upper extremities that are equal bilaterally, 2+ pulses in the lower extremities that are equal bilaterally. Non-edematous. Moves all extremities well, sensation to all extremities are noted. Skin: Warm, dry, intact. Course 2 Vital Signs: Vital signs: Vital Signs Temperature 99 F 09/18/23 20:56 Pulse Rate 102 H 09/19/23 00:00 Respiratory Rate 26 H 09/18/23 22:32 Blood Pressure 142/84 09/19/23 00:00 Pulse Oximetry 97 09/19/23 00:00 Oxygen Delivery Me thod Room Air 09/19/23 00:00 MDM - Altered Mental Status Medical Decision Making Physical exam completed and documented, I will obtain a CBC, CMP, urinalysis and request that we change the Villanueva catheter out for this patient I suspect that most likely some of his decreased mentation per the long-term care facility staff is from a residual urinary tract infection. Medical Records I reviewed the patient's medical records. Lab Data I reviewed the patient's lab results. 09/18/23 21:06 09/18/23 21:06 Radiology Impressions Chest X-Ray 09/18/23 21:04 IMPRESSION: 1. No acute findings. 2. Mild cardiomegaly. Laboratory Results WBC 15.71 10^3/uL (3.29-11.43) H 09/18/23 21:06 RBC 4.30 10^6/uL (3.85-5.65) 09/18/23 21:06 Hgb 10.90 g/dL (11.27-16.99) L 09/18/23 21:06 Hct 35.1 % (37-53) L 09/18/23 21:06 MCV 81.6 fl (82-101) L 09/18/23 21:06 MCH 25.3 pg (27-33) L 09/18/23 21:06 MCHC 31.1 g/dL (30-55) 09/18/23 21:06 RDW 16.7 % (12.1-15.1) H 09/18/23 21:06 Plt Count 299 10^3/cmm (157-399) 09/18/23 21:06 MPV 10.0 fL (7.4-10.4) 09/18/23 21:06 Neut % (Auto) 77.5 % 09/18/23 21:06 Lymph % (Auto) 12.7 % 09/18/23 21:06 [place] % (Auto) 8.5 % 09/18/23 21:06 Eos % (Auto) 0.5 % 09/18/23 21:06 Baso % (Auto) 0.4 % 09/18/23 21:06 Neut # (Auto) 12.17 10^3/uL (1.8-7.7) H 09/18/23 21:06 Lymph # (Auto) 2.0 10^3/uL (0.8-4.8) 09/18/23 21:06 [place] # (Auto) 1.3 10^3/uL (0.2-0.9) H 09/18/23 21:06 Eos # (Auto) 0.1 10^3/uL (0.0-0.8) 09/18/23 21:06 Baso # (Auto) 0.1 10^3/uL (0.0-0.1) 09/18/23 21:06 Nucleated RBC % (auto) 0 % 09/18/23 21:06 Nucleated RBCs # 0.0 /100WBC 09/18/23 21:06 PT 15.40 SECONDS (12.1-14.9) H 09/18/23 21:06 INR 1.18 (0.8-1.2) 12/15/23 21:06 APTT 29.6 SECONDS (23.9-36.7) 09/18/23 21:06 Sodium 132 mmol/L (136-145) L 09/18/23 21:06 Potassium 4.1 mmol/L (3.5-5.1) 09/18/23 21:06 Chloride 96 mmol/L (98-107) L 09/18/23 21:06 Carbon Dioxide 25 mmol/L (22-29) 09/18/23 21:06 Anion Gap 15.1 (5-19) 09/18/23 21:06 BUN 26 mg/dL (8-23) H 09/18/23 21:06 Creatinine 2.1 mg/dL (0.7-1.2) H 09/18/23 21:06 GFR Calculation Not Reportable 09/18/23 21:06 Glucose 376 mg/dL (65-115) H 09/18/23 21:06 POC Glucose 395 mg/dL (70-110) H 09/18/23 20:59 Calculated Osmolality 294 mOsm/kg (285-295) 09/18/23 21:06 Lactic Acid 1.9 mmol/L (0.5-2.2) 09/18/23 21:06 Calcium 9.5 mg/dL (8.5-10.5) 09/18/23 21:06 Total Bilirubin 0.6 mg/dL (0.15-1.2) 09/18/23 21:06 AST 10 U/L (0-40) 09/18/23 21:06 ALT 7 U/L (0-41) 09/18/23 21:06 Alkaline Phosphatase 77 U/L (40-130) 09/18/23 21:06 NT-Pro-B Natriuret Pep 3216 pg/mL (0-125) H 09/18/23 21:06 Total Protein 7.5 g/dL (6.6-8.7) 09/18/23 21:06 Albumin 3.9 g/dL (3.5-5.2) 09/18/23 21:06 Globulin 3.6 g/dL (1.3-4.6) 09/18/23 21:06 Procalcitonin 0.35 ng/mL (0-0.5) 09/18/23 21:06 Urine Color Yellow (Yellow) 09/18/23 21:19 Urine Appearance Cloudy (CLEAR) A 09/18/23 21:19 Urine pH 6.5 (5-7) 09/18/23 21:19 Ur Specific [place] 1.005 (1.005-1.030) 09/18/23 21:19 Urine Protein 3+ (Negative) H 09/18/23 21:19 Urine Glucose (UA) 4+ (Normal) H 09/18/23 21:19 Urine Ketones Negative (Negative) 09/18/23 21:19 Urine Blood 3+ (Negative) H 09/18/23 21:19 Urine Nitrate Positive (Negative) H 09/18/23 21:19 Urine Bilirubin Neg (Negative) 09/18/23 21: Urine Urobilinogen Norm mg/dL (Negative) 09/18/23 21:19 Ur Leukocyte Esterase 2+ (Negative) H 09/18/23 21:19 Urine RBC 25-40 /hpf (0-2) H 09/18/23 21:19 Urine WBC 40-55 /hpf (0-5) H 09/18/23 21:19 Ur Squamous Epith Cells 0-4 /hpf (0-5) H 09/18/23 21:19 Amorphous Sediment Not Reportable 09/18/23 21:19 Urine Bacteria 2+ /hpf (NONE) H 09/18/23 21:19 All radiology interpretation(s) finalized by discharge Discharge Plan Discharge Patient Disposition: Home Clinical Impression: Altered mental status, Bacterial UTI Condition: Stable Prescriptions: No Action (DME) Dexcom G6 Face Painter Misc See Rx Instructions .Route Qty: 1 0RF Rx Instructions: Check BS 4-6 times a day. metformin 500 mg tablet 500 mg PO DAILY (DME) FreeStyle Jimi 2 Sensor Kit See Rx Instructions .ROUTE .MEDSUPPLY Qty: 6 0RF Rx Instructions: change every 14 days (DME) FreeStyle Jimi 2 [place] Misc See Rx Instructions .Route Qty: 1 0RF Rx Instructions: As directed (DME) Dexcom G6 Sensor Device See Rx Instructions .ROUTE .COMPLEX Qty: 9 0RF Dose Instruction: USE 1 SENSOR UNDER THE SKIN EVERY 10 DAYS CHANGE SENSOR/SITE EVERY 10 DAYS. CONTACT [facility] AT FOR REPLACEMENT OF DAMAGED/MALFUNCTIONING SENSORS. Rx Instructions: as directed (DME) Dexcom G6 Transmitter Device See Rx Instructions .Route Qty: 1 3RF Rx Instructions: Change every 90 days. fluticasone propion-salmeterol [Wixela Inhub] 100-50 mcg/dose Blister With Device 1 inh INHALATION BID albuterol sulfate [ProAir HFA] 90 mcg/actuation HFA aerosol inhaler 2 puff INHALATION Q4H PRN (Reason: Shortness Of Breath) rosuvastatin 40 mg tablet 40 mg PO BEDTIME@19 tamsulosin 0.4 mg capsule 0.4 mg PO BEDTIME@19 gabapentin 400 mg Capsule 400 mg PO TID cyanocobalamin (vitamin B-12) [Vitamin B-12] 1,000 mcg Tablet 1,000 mcg PO DAILY@07 bisacodyl [Dulcolax (bisacodyl)] 10 mg Suppository 10 mg IA DAILY PRN (Reason: Constipation) Rx Instructions: if no bm x 3 days fluticasone propionate 50 mcg/actuation [place],Suspension 2 spray INTRANASAL DAILY@07 Rx Instructions: administer into each nostril finasteride 5 mg Tablet 5 mg PO DAILY@07 coenzyme Q10 30 mg Capsule 30 mg PO DAILY@07 menthol-zinc oxide [Calmoseptine] 0.44-20.6 % ointment See Rx Instructions .ROUTE .COMPLEX Rx Instructions: apply to bilateral buttocks every shift for prevention acetaminophen [Tylenol] 325 mg Tablet 650 mg PO Q6H PRN (Reason: Pain) metoprolol tartrate 100 mg Tablet 100 mg PO BID@07,19 therapeutic multivitamin Tablet 1 tab PO DAILY@07 melatonin 1 mg Tablet 1 mg PO BEDTIME@1930 cholecalciferol (vitamin D3) [Vitamin D3] 25 mcg (1,000 unit) Tablet 25 mcg PO DAILY@07 Xarelto 20 mg Tablet 20 mg PO DAILY@16 Hold Instructions: Resume on 08/17/23. hold for at least 1 week, resume once hgb resonable, ofllo wup with crdilogy Rx Instructions: must administer with evening meal galantamine 4 mg tablet 4 mg PO BID mometasone 50 mcg/actuation [place],Non-Aerosol 1 spray INTRANASAL BID Rx Instructions: administer into each nostril Pacerone 200 mg Tablet See Rx Instructions .ROUTE .COMPLEX Qty: 60 0RF Rx Instructions: 1 tab bid for 15 days, then 1 tab daily methocarbamol 750 mg tablet 750 mg PO Q12H PRN (Reason: muscle spasm) 5 Days Qty: 10 0RF Lantus Solostar U-100 Insulin 100 unit/mL (3 mL) insulin pen 5 unit SUBCUT Q24H 30 Days Qty: 15 0RF Novolog FlexPen U-100 Insulin 100 unit/mL (3 mL) insulin pen See Rx Instructions .ROUTE .COMPLEX Qty: 15 0RF Rx Instructions: inject, subcut, tid after meals, based on insulin sliding scale Discharge Orders: Discharge ED (Routine); Ordered 09/19/23 Ordered By: Darwin Chun Referrals: Trisha Urena MD [Primary Care Provider] - Discharge Diet: Advance as tolerated Discharge Activity: Resume usual activity Patient Instructions: Altered Mental Status (ED), Opioid Safety, Pain Management Coding Level of Care Code ED 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
[2023-09-18 21:15] LABS: Basophils # 0.1 10^3/uL (0.0-0.1); Basophils % 0.4 %; Eosinophils # 0.1 10^3/uL (0.0-0.8); Eosinophils % 0.5 %; Hematocrit 35.1 % (37-53); Lymphocytes % 12.7 %; Mean Corpuscular HGB Conc 31.1 g/dL (30-55); Mean Corpuscular Hemoglobin 25.3 pg (27-33); Mean Corpuscular Volume 81.6 fl (82-101); Monocytes # 1.3 10^3/uL (0.2-0.9); Monocytes % 8.5 %; Neutrophils # 12.17 10^3/uL (1.8-7.7); Neutrophils % 77.5 %; Nucleated Red Blood Cells % 0 %; Platelet Count 299 10^3/cmm (157-399); Red Cell Distribution Width 16.7 % (12.1-15.1); White Blood Count 15.71 10^3/uL (3.29-11.43)
[2023-09-18] MEDS: sodium chloride 0.9% 1,000 ML 999 ML IV (21:24)
[2023-09-18 21:33] VITALS: PULSE 115; RESP 25; O2SAT 94
[2023-09-18 21:34] LABS: INR 1.18 (0.8-1.2); Partial Thromboplastin Time 29.6 SECONDS (23.9-36.7)
[2023-09-18 21:38] LABS: Lactic Sepsis W/Reflex 1.9 mmol/L (0.5-2.2)
[2023-09-18 21:48] LABS: NT Pro B Type Natriuretic Pept 3216 pg/mL (0-125); Procalcitonin 0.35 ng/mL (0-0.5)
[2023-09-18 21:58] LABS: Bilirubin Urine Neg (Negative); Blood Urine 3+ (Negative); Glucose Urine UA 4+ (Normal); Ketones Urine Negative (Negative); Nitrate Urine Positive (Negative); Protein Urine 3+ (Negative); Specific Gravity, Urine 1.005 (1.005-1.030); Urine Appearance Cloudy (CLEAR); Urine Color Yellow (Yellow); pH Urine 6.5 (5-7)
[2023-09-18 21:59] LABS: Alanine Aminotransferase 7 U/L (0-41); Albumin Level 3.9 g/dL (3.5-5.2); Alkaline Phosphatase 77 U/L (40-130); Anion Gap 15.1 (5-19); Aspartate Amino Transferase 10 U/L (0-40); Blood Urea Nitrogen 26 mg/dL (8-23); Calcium 9.5 mg/dL (8.5-10.5); Carbon Dioxide 25 mmol/L (22-29); Chloride 96 mmol/L (98-107); Globulin 3.6 g/dL (1.3-4.6); Glucose 376 mg/dL (65-115); Osmolality Calculated 294 mOsm/kg (285-295); Potassium 4.1 mmol/L (3.5-5.1); Sodium 132 mmol/L (136-145); Total Bilirubin 0.6 mg/dL (0.15-1.2); Total Protein 7.5 g/dL (6.6-8.7)
[2023-09-18 21:59] LABS: Add Urine Culture? Yes; Add Urine Microscopic? YES; Bacteria Urine 2+ /hpf; Leukocyte Esterase Urine 2+ (Negative); RBC Urine 25-40 /hpf (0-2); Squamous Epithelial Cell Urine 0-4 /hpf (0-5); Urobilinogen Urine Norm (Negative); WBC Urine 40-55 /hpf (0-5)
[2023-09-18] MEDS: insulin regular-human 100 units/1 mL 10 UNIT IVP (22:00)
[2023-09-18 22:32] VITALS: BP 141/89; PULSE 116; RESP 26; O2SAT 96
[2023-09-18 23:00] VITALS: BP 149/79; PULSE 105; O2SAT 95
[2023-09-18 23:31] VITALS: BP 137/82; PULSE 108; O2SAT 95
[2023-09-19] VITALS: BP 142/84; PULSE 102; O2SAT 97
[2023-09-19] MEDS: piperacillin-tazobactam 3.375 GM in sodium chloride 0.9% (plus) 50 ML IV (00:53)
== END 2023-09-19 01:31 | disposition home or self-care (01) ==
PROVIDERS: Emergency Provider Internal Medicine; PCP Family Medicine
DX: R41.82 Altered mental status, unspecified (principal); N39.0 Urinary tract infection, site not specified; B96.89 Other specified bacterial agents as the cause of diseases classified elsewhere; Z79.84 Long term (current) use of oral hypoglycemic drugs; Z79.4 Long term (current) use of insulin; I11.9 Hypertensive heart disease without heart failure; G30.9 Alzheimer's disease, unspecified; F02.80 Dementia in other diseases classified elsewhere, unspecified severity, without behavioral disturbance, psychotic disturbance, mood disturbance, and anxiety; E11.40 Type 2 diabetes mellitus with diabetic neuropathy, unspecified; Z85.46 Personal history of malignant neoplasm of prostate; Z87.440 Personal history of urinary (tract) infections; Z87.891 Personal history of nicotine dependence
CPT/HCPCS: 36415; 36416; 51702; 71045; 80053; 81001; 82962; 83605; 83880; 84145; 85025; 85610; 85730; 87040; 87077; 87086; 87186; 96361; 96374; 96375; 99284; J1815; J2543; J7030

== ENCOUNTER → 2023-11-05 08:02 | Outpatient (BNVA) | payer OTHER, SELFPAY | PROVIDERS: PCP Family Medicine; Visit Provider Internal Medicine | DX: E11.42 Type 2 diabetes mellitus with diabetic polyneuropathy (principal); Z79.4 Long term (current) use of insulin; E78.2 Mixed hyperlipidemia; Z79.84 Long term (current) use of oral hypoglycemic drugs | CPT/HCPCS: 99214 ==

== ENCOUNTER 2023-11-15 16:24 | Emergency (ER) | payer OTHER, SELFPAY ==
[2023-11-15 16:26] VITALS: BP 127/88; PULSE 121; TEMP 36.8; O2SAT 95; BMI 33.0
--- NOTE | 2023-11-15 16:32 | XRR_ITS ---
PROCEDURE INFORMATION: Exam: XR Chest Exam date and time: 11/15/2023 5:07 PM Age: 73 years old Clinical indication: Cough TECHNIQUE: Imaging protocol: Radiologic exam of the chest. Views: 1 view. COMPARISON: CR XR chest 1V portable [id number] 09/18/2023 9:18 PM FINDINGS: Lungs: No focal consolidation. Moderate-severe emphysematous changes. Right basilar hazy opacities compatible with atelectasis or developing infection in the proper clinical setting. Pleural spaces: No evidence of pneumothorax. No evidence of pleural effusion. Heart/Mediastinum: Cardiomediastinal silhouette is within normal limits. Bones/joints: No evidence of acute osseous abnormality. XR/XR chest 1V portable [id number] IMPRESSION: 1. Right basilar hazy opacities compatible with atelectasis or developing infection in the proper clinical setting. 2. Emphysematous changes.
--- NOTE | 2023-11-15 16:36 | ED_ITS ---
Documented by User: Torres Hernandez MD 11/15/23 18:04 HPI - Altered Mental Status 2 General: Chief Complaint: Altered Mental Status Stated Complaint: AMS Time Seen by Provider: 11/15/23 16:28 History of Present Illness: This patient is a 73-year-old white male who presents to the emergency department stating that he has been coughing up green phlegm. He has not noticed a fever. Is not having any chest pain or shortness of breath. He has been having some hallucinations over the past couple of days. He does have a history of Alzheimer's dementia, diabetes and atrial fibrillation. Associated symptoms: Reports visual hallucinations Review of Systems 2 General: Reports: 10 or more systems reviewed and unremarkable except in HPI and below Resp: Reports: productive cough Psych: Reports: visual hallucinations PFSH ED 2 PFSH: Medical History Yeast UTI Hematuria due to acute cystitis Mild cognitive impairment with memory loss Bacteriuria Alzheimer disease 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 mellitus History of Doppler ultrasound 08/2021 venous no DVT BLE 08/2021 arterial patent vessels, left posterior tibial may be less than 60% stenosis, left dorsalis pedis not visualized Gait instability SARS-CoV-2 positive positive test 11/17/2021 symptoms weakness, hypoglycemia, altered mental status and low grade fever Anemia Intermittent self-catheterization of bladder due to urinary retention History of sleep study 02/22 limited sleep, no apnea noted but did have nocturnal hypoxemia, recommended to use nocturnal oxygen History of electromyography 01/23 Interpretation: The study provides electrodiagnostic evidence for an axonal sensorimotor polyneuropathy based on small or absent CMAPs and SNAPs with denervation seen distally on EMG. The study is limited for evaluation of lumbar radiculopathy related to the patient's anticoagulated state. History of echocardiogram 05/2021 EF 65% History of cardiovascular stress test 05/2021 normal EKG response, perfusion study without findings of ischemia Diabetes mellitus, type II Chronic anticoagulation Taken off Xarelto secondary to hematuria BPH loc w urin obs/LUTS Obstructive pyelonephritis 09/2021 required ureteral stent placement Left ureteral calculus Diabetic foot ulcer 08/2021 - treated with I&D, antibiotics and wound care clinic management Lumbar stenosis with neurogenic claudication 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 mellitus Cervicalgia of aipwzprk-lywkafc-hmlnd region Lumbar stenosis L2/3, L3/4, L4/L5, with radiculopathy right lower extremity H/O prostate cancer Obstructive sleep apnea Refuses CPAP HTN (hypertension) previously on treatment for high blood pressure Atrial fibrillation Surgical History Status post excisional debridement 08/2021 left foot History of laminectomy 03/25 bilateral with partial facetectomies at L2-3, L3-4, L4-[address] Smith Other postprocedural status history of radiofrequency ablation for back pain x 2 Status post laser lithotripsy of ureteral calculus (11/06/21) S/P ureteral stent placement (09/2021) subsequent removal H/O esophagogastroduodenoscopy (10/30/21) 10/2021 pedunculated polyps removed from first portion of duodenum, otherwise normal History of colonoscopy (10/30/21) 11/2021 diverticulosis of sigmoid colon and internal hemorrhoids, sessile polyps removed History of back surgery S/P tonsillectomy S/P appendectomy History of pilonidal cyst Family History Grandmother Heart disease Hypertension Grandfather Hypertension MATERNAL Diabetes Mother No problems noted. Father No problems noted. 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 Exam 2 Const: COMMON NORMALS: no acute distress, patient oriented x3 and no limitations GENERAL APPEARANCE: cooperative and comfortable HENMT: COMMON NORMALS: normocephalic, atraumatic, Normal nasal mucous membranes and turbinates present, moist oral mucous membranes and oropharynx normal HEAD & SCALP: normal to inspection, normocephalic and atraumatic F GEO & SINUS: normal facial exam NOSE: Normal nasal mucous membranes and turbinates present Eye: COMMON NORMALS: Equal, round and reactive pupils present, EOMs intact bilaterally and conjunctivae normal GENERAL EYE: appearance normal, both eyes and all related structures CONJUNCTIVA: Yes conjunctivae normal PUPIL: Yes Equal, round and reactive pupils present Neck/C-Spine: COMMON NORMALS: supple and no JVD Chest: COMMONS NORMALS: normal inspection of the chest Resp: COMMON NORMALS: normal respiratory effort and clear to auscultation bilaterally AUSCULTATION: clear to auscultation bilaterally Cardio: COMMON NORMALS: no JVD, regular rate, regular rhythm, No gallops present (Cardio), No murmurs present (Cardio) and No rub (Cardio) RATE: r egular rate RHYTHM: regular rhythm GI: COMMON NORMALS: Normal to inspection, nondistended, normoactive bowel sounds present, Soft to palpation and non-tender AUSCULTATION: Yes normoactive bowel sounds PALPATION: Yes Soft to palpation : COMMON NORMALS: Yes no CVA tenderness BLADDER/KIDNEY EXAM: Yes no CVA tenderness Back/Pelvis: COMMON NORMALS: no CVA tenderness and thoracic and lumbar spine normal to inspection Extremity: COMMON NORMALS: normal to inspection Neuro: COMMON NORMALS: patient oriented x3 and CN's II-XII intact bilaterally Psych: COMMON NORMALS: mental status grossly normal, Normal thought process present and cooperative THOUGHT PROCESS: Normal thought process present Skin: COMMON NORMALS: no rashes or lesions noted, turgor normal and no jaundice GENERAL SKIN EXAM: no rashes or lesions noted and turgor normal Course 2 Vital Signs: Vital signs: Vital Signs Temperature 98.2 F 11/15/23 16:26 Pulse Rate 117 H 11/15/23 18:32 Blood Pressure 117/89 11/15/23 17:32 Pulse Oximetry 93 11/15/23 18:32 Oxygen Delivery Me thod Room Air 11/15/23 17:02 MDM - Altered Mental Status Medical Decision Making EKG revealed atrial fibrillation with a rapid ventricular response. Ventricular rate was 123. Patient does have history of atrial fibrillation. CBC reveals a white blood cell count of 11.9 and hemoglobin of 10.2. CMP was normal. Urinalysis is pending. Influenza and COVID-negative. Chest x-ray was read by the radiologist. There are right basilar opacities consistent with either atelectasis or developing infection. Patient is currently getting a bolus of normal saline to see if that brings his heart rate down. Patient care will be transferred to Dr. Beard at shift change. He is stable. Lab Data 11/15/23 16:41 11/15/23 16:41 Radiology Impressions Chest X-Ray 11/15/23 16:32 IMPRESSION: 1. Right basilar hazy opacities compatible with atelectasis or developing infection in the proper clinical setting. 2. Emphysematous changes. Laboratory Results WBC 11.86 10^3/uL (3.29-11.43) H 11/15/23 16:41 RBC 4.05 10^6/uL (3.85-5.65) 11/15/23 16:41 Hgb 10.20 g/dL (11.27-16.99) L 11/15/23 16:41 Hct 33.1 % (37-53) L 11/15/23 16:41 MCV 81.7 fl (82-101) L 11/15/23 16:41 MCH 25.2 pg (27-33) L 11/15/23 16:41 MCHC 30.8 g/dL (30-55) 11/15/23 16:41 RDW 17.7 % (12.1-15.1) H 11/15/23 16:41 Plt Count 448 10^3/cmm (157-399) H 11/15/23 16:41 MPV 9.5 fL (7.4-10.4) 11/15/23 16:41 Neut % (Auto) 68.3 % 11/15/23 16:41 Lymph % (Auto) 18.0 % 11/15/23 16:41 [place] % (Auto) 9.7 % 11/15/23 16:41 Eos % (Auto) 3.1 % 11/15/23 16:41 Baso % (Auto) 0.5 % 11/15/23 16:41 Neut # (Auto) 8.10 10^3/uL (1.8-7.7) H 11/15/23 16:41 Lymph # (Auto) 2.1 10^3/uL (0.8-4.8) 11/15/23 16:41 [place] # (Auto) 1.2 10^3/uL (0.2-0.9) H 11/15/23 16:41 Eos # (Auto) 0.4 10^3/uL (0.0-0.8) 11/15/23 16:41 Baso # (Auto) 0.1 10^3/uL (0.0-0.1) 11/15/23 16:41 Nucleated RBC % (auto) 0 % 11/15/23 16:41 Nucleated RBCs # 0.0 /100WBC 11/15/23 16:41 Sodium 137 mmol/L (136-145) 11/15/23 16:41 Potassium 3.8 mmol/L (3.5-5.1) 11/15/23 16:41 Chloride 98 mmol/L (98-107) 11/15/23 16:41 Carbon Dioxide 24 mmol/L (22-29) 11/15/23 16:41 Anion Gap 18.8 (5-19) 11/15/23 16:41 BUN 27 mg/dL (8-23) H 11/15/23 16:41 Creatinine 2.0 mg/dL (0.7-1.2) H 11/15/23 16:41 GFR Calculation Not Reportable 11/15/23 16:41 Glucose 267 mg/dL (65-115) H 11/15/23 16:41 Calculated Osmolality 298 mOsm/kg (285-295) H 11/15/23 16:41 Calcium 8.9 mg/dL (8.5-10.5) 11/15/23 16:41 Total Bilirubin 0.4 mg/dL (0.15-1.2) 11/15/23 16:41 AST 50 U/L (0-40) H 11/15/23 16:41 ALT 38 U/L (0-41) 11/15/23 16:41 Alkaline Phosphatase 113 U/L (40-130) 11/15/23 16:41 Total Protein 7.7 g/dL (6.6-8.7) 11/15/23 16:41 Albumin 3.5 g/dL (3.5-5.2) 11/15/23 16:41 Globulin 4.2 g/dL (1.3-4.6) 11/15/23 16:41 Urine Color Yellow (Yellow) 11/15/23 18:03 Urine Appearance Cloudy (CLEAR) A 11/15/23 18:03 Urine pH 6 (5-7) 11/15/23 18:03 Ur Specific [place] 1.010 (1.005-1.030) 11/15/23 18:03 Urine Protein 2+ (Negative) H 11/15/23 18:03 Urine Glucose (UA) 2+ (Normal) H 11/15/23 18:03 Urine Ketones 1+ (Negative) H 11/15/23 18:03 Urine Blood 3+ (Negative) H 11/15/23 18:03 Urine Nitrate Negative (Negative) 11/15/23 18:03 Urine Bilirubin Neg (Negative) 11/15/23 18:03 Urine Urobilinogen Norm mg/dL (Negative) 11/15/23 18:03 Ur Leukocyte Esterase 2+ (Negative) H 11/15/23 18:03 Urine RBC 10-15 /hpf (0-2) H 11/15/23 18:03 Urine WBC Too numerous to cnt /hpf (0-5) H 11/15/23 18:03 Ur Squamous Epith Cells None /hpf (0-5) 11/15/23 18:03 Amorphous Sediment Not Reportable 11/15/23 18:03 Urine Bacteria 1+ /hpf (NONE) H 11/15/23 18:03 Influenza Type A Ag negative (Negative) 11/15/23 16:42 Influenza Type B Ag negative (Negative) 11/15/23 16:42 SARS-CoV-2 Ag (Rapid) negative (Negative) 11/15/23 16:42 All radiology interpretation(s) finalized by discharge Discharge Plan Discharge Patient Disposition: Home Clinical Impression: Acute UTI, Pneumonia Condition: Stable Prescriptions: New levofloxacin 500 mg tablet 500 mg PO DAILY 7 Days Qty: 7 0RF No Action metformin 500 mg tablet 500 mg PO DAILY (DME) FreeStyle Jimi 2 Sensor Kit See Rx Instructions .ROUTE .MEDSUPPLY Qty: 6 0RF Rx Instructions: change every 14 days (DME) FreeStyle Jimi 2 Stacy Misc See Rx Instructions .Route Qty: 1 0RF Rx Instructions: As directed fluticasone propion-salmeterol [Wixela Inhub] 100-50 mcg/dose Blister With Device 1 inh INHALATION BID albuterol sulfate [ProAir HFA] 90 mcg/actuation HFA aerosol inhaler 2 puff INHALATION Q4H PRN (Reason: Shortness Of Breath) rosuvastatin 40 mg tablet 40 mg PO BEDTIME@19 tamsulosin 0.4 mg capsule 0.4 mg PO BEDTIME@19 gabapentin 400 mg Capsule 400 mg PO TID cyanocobalamin (vitamin B-12) [Vitamin B-12] 1,000 mcg Tablet 1,000 mcg PO DAILY@07 bisacodyl [Dulcolax (bisacodyl)] 10 mg Suppository 10 mg NM DAILY PRN (Reason: Constipation) Rx Instructions: if no bm x 3 days fluticasone propionate 50 mcg/actuation [place],Suspension 2 spray INTRANASAL DAILY@07 Rx Instructions: administer into each nostril finasteride 5 mg Tablet 5 mg PO DAILY@07 coenzyme Q10 30 mg Capsule 30 mg PO DAILY@07 menthol-zinc oxide [Calmoseptine] 0.44-20.6 % ointment See Rx Instructions .ROUTE .COMPLEX Rx Instructions: apply to bilateral buttocks every shift for prevention acetaminophen [Tylenol] 325 mg Tablet 650 mg PO Q6H PRN (Reason: Pain) metoprolol tartrate 100 mg Tablet 100 mg PO BID@07,19 therapeutic multivitamin Tablet 1 tab PO DAILY@07 melatonin 1 mg Tablet 1 mg PO BEDTIME@1930 cholecalciferol (vitamin D3) [Vitamin D3] 25 mcg (1,000 unit) Tablet 25 mcg PO DAILY@07 Xarelto 20 mg Tablet 20 mg PO DAILY@16 Hold Instructions: Resume on 08/17/23. hold for at least 1 week, resume once hgb resonable, ofllo wup with crdilogy Rx Instructions: must administer with evening meal galantamine 4 mg tablet 4 mg PO BID mometasone 50 mcg/actuation [place],Non-Aerosol 1 spray INTRANASAL BID Rx Instructions: administer into each nostril Pacerone 200 mg Tablet See Rx Instructions .ROUTE .COMPLEX Qty: 60 0RF Rx Instructions: 1 tab bid for 15 days, then 1 tab daily methocarbamol 750 mg tablet 750 mg PO Q12H PRN (Reason: muscle spasm) 5 Days Qty: 10 0RF Lantus Solostar U-100 Insulin 100 unit/mL (3 mL) insulin pen 5 unit SUBCUT Q24H 30 Days Qty: 15 0RF Novolog FlexPen U-100 Insulin 100 unit/mL (3 mL) insulin pen See Rx Instructions .ROUTE .COMPLEX Qty: 15 0RF Rx Instructions: inject, subcut, tid after meals, based on insulin sliding scale Discharge Orders: Discharge ED (Routine); Ordered 11/15/23 Ordered By: Joaquim Beard Referrals: Trisha Urena MD [Primary Care Provider] - 1-3 days Patient Instructions: Altered Mental Status (ED), Pneumonia (ED), Urinary Tract Infection in Older Adults (ED), Opioid Safety, Pain Management Activity Restrictions/Additional Instructions: Return for fever despite 2-3 doses of antibiotics, worsening mental status, worsening shortness of breath, any other concerning symptoms. Coding Level of Care Code ED Fur Dry Cleaner for Chg Fwd Documented by User: Joaquim Beard, 11/15/23 20:00 HPI - Altered Mental Status 2 General: Chief Complaint: Altered Mental Status Stated Complaint: AMS Time Seen by Provider: 11/15/23 16:28 [facility] ED 2 PFSH: Medical History Yeast UTI Hematuria due to acute cystitis Mild cognitive impairment with memory loss Bacteriuria Alzheimer disease 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 mellitus History of Doppler ultrasound 08/2021 venous no DVT BLE 08/2021 arterial patent vessels, left posterior tibial may be less than 60% stenosis, left dorsalis pedis not visualized Gait instability SARS-CoV-2 positive positive test 11/17/2021 symptoms weakness, hypoglycemia, altered mental status and low grade fever Anemia Intermittent self-catheterization of bladder due to urinary retention History of sleep study 02/22 limited sleep, no apnea noted but did have nocturnal hypoxemia, recommended to use nocturnal oxygen History of electromyography 01/23 Interpretation: The study provides electrodiagnostic evidence for an axonal sensorimotor polyneuropathy based on small or absent CMAPs and SNAPs with denervation seen distally on EMG. The study is limited for evaluation of lumbar radiculopathy related to the patient's anticoagulated state. History of echocardiogram 05/2021 EF 65% History of cardiovascular stress test 05/2021 normal EKG response, perfusion study without findings of ischemia Diabetes mellitus, type II Chronic anticoagulation Taken off Xarelto secondary to hematuria BPH loc w urin obs/LUTS Obstructive pyelonephritis 09/2021 required ureteral stent placement Left ureteral calculus Diabetic foot ulcer 08/2021 - treated with I&D, antibiotics and wound care clinic management Lumbar stenosis with neurogenic claudication 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 mellitus Cervicalgia of orgmetxy-qjwotii-gekyx region Lumbar stenosis L2/3, L3/4, L4/L5, with radiculopathy right lower extremity H/O prostate cancer Obstructive sleep apnea Refuses CPAP HTN (hypertension) previously on treatment for high blood pressure Atrial fibrillation Surgical History Status post excisional debridement 08/2021 left foot History of laminectomy 03/25 bilateral with partial facetectomies at L2-3, L3-4, L4-[address] Smith Other postprocedural status history of radiofrequency ablation for back pain x 2 Status post laser lithotripsy of ureteral calculus (11/06/21) S/P ureteral stent placement (09/2021) subsequent removal H/O esophagogastroduodenoscopy (10/30/21) 10/2021 pedunculated polyps removed from first portion of duodenum, otherwise normal History of colonoscopy (10/30/21) 11/2021 diverticulosis of sigmoid colon and internal hemorrhoids, sessile polyps removed History of back surgery S/P tonsillectomy S/P appendectomy History of pilonidal cyst Family History Grandmother Heart disease Hypertension Grandfather Hypertension MATERNAL Diabetes Mother No problems noted. Father No problems noted. 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 Ventricular rate was 123. Patient does have history of atrial fibrillation. CBC reveals a white blood cell count of 11.9 and hemoglobin of 10.2. CMP was normal. Urinalysis is pending. Influenza and COVID-negative. Chest x-ray was read by the radiologist. There are right basilar opacities consistent with either atelectasis or developing infection. Patient is currently getting a bolus of normal saline to see if that brings his heart rate down. Patient care will be transferred to Dr. Beard at shift change. He is stable. Heart rate has improved significantly after fluids. Urinalysis shows significant urinary tract infection. Likely the cause of mental status changes. He is given Levaquin here after fluids. He has been up and walked to the bathroom with a walker. He feels improved. Mental status is improved. He will be allowed back to the snf on antibiotics to cover UTI plus or minus early pneumonia. To return for worsening. Lab Data 11/15/23 16:41 11/15/23 16:41 Radiology Impressions Chest X-Ray 11/15/23 16:32 IMPRESSION: 1. Right basilar hazy opacities compatible with atelectasis or developing infection in the proper clinical setting. 2. Emphysematous changes. Laboratory Results WBC 11.86 10^3/uL (3.29-11.43) H 11/15/23 16:41 RBC 4.05 10^6/uL (3.85-5.65) 11/15/23 16:41 Hgb 10.20 g/dL (11.27-16.99) L 11/15/23 16:41 Hct 33.1 % (37-53) L 11/15/23 16:41 MCV 81.7 fl (82-101) L 11/15/23 16:41 MCH 25.2 pg (27-33) L 11/15/23 16:41 MCHC 30.8 g/dL (30-55) 11/15/23 16:41 RDW 17.7 % (12.1-15.1) H 11/15/23 16:41 Plt Count 448 10^3/cmm (157-399) H 11/15/23 16:41 MPV 9.5 fL (7.4-10.4) 11/15/23 16:41 Neut % (Auto) 68.3 % 11/15/23 16:41 Lymph % (Auto) 18.0 % 11/15/23 16:41 [place] % (Auto) 9.7 % 11/15/23 16:41 Eos % (Auto) 3.1 % 11/15/23 16:41 Baso % (Auto) 0.5 % 11/15/23 16:41 Neut # (Auto) 8.10 10^3/uL (1.8-7.7) H 11/15/23 16:41 Lymph # (Auto) 2.1 10^3/uL (0.8-4.8) 11/15/23 16:41 [place] # (Auto) 1.2 10^3/uL (0.2-0.9) H 11/15/23 16:41 Eos # (Auto) 0.4 10^3/uL (0.0-0.8) 11/15/23 16:41 Baso # (Auto) 0.1 10^3/uL (0.0-0.1) 11/15/23 16:41 Nucleated RBC % (auto) 0 % 11/15/23 16:41 Nucleated RBCs # 0.0 /100WBC 11/15/23 16:41 Sodium 137 mmol/L (136-145) 11/15/23 16:41 Potassium 3.8 mmol/L (3.5-5.1) 11/15/23 16:41 Chloride 98 mmol/L (98-107) 11/15/23 16:41 Carbon Dioxide 24 mmol/L (22-29) 11/15/23 16:41 Anion Gap 18.8 (5-19) 11/15/23 16:41 BUN 27 mg/dL (8-23) H 11/15/23 16:41 Creatinine 2.0 mg/dL (0.7-1.2) H 11/15/23 16:41 GFR Calculation Not Reportable 11/15/23 16:41 Glucose 267 mg/dL (65-115) H 11/15/23 16:41 Calculated Osmolality 298 mOsm/kg (285-295) H 11/15/23 16:41 Calcium 8.9 mg/dL (8.5-10.5) 11/15/23 16:41 Total Bilirubin 0.4 mg/dL (0.15-1.2) 11/15/23 16:41 AST 50 U/L (0-40) H 11/15/23 16:41 ALT 38 U/L (0-41) 11/15/23 16:41 Alkaline Phosphatase 113 U/L (40-130) 11/15/23 16:41 Total Protein 7.7 g/dL (6.6-8.7) 11/15/23 16:41 Albumin 3.5 g/dL (3.5-5.2) 11/15/23 16:41 Globulin 4.2 g/dL (1.3-4.6) 11/15/23 16:41 Urine Color Yellow (Yellow) 11/15/23 18:03 Urine Appearance Cloudy (CLEAR) A 11/15/23 18:03 Urine pH 6 (5-7) 11/15/23 18:03 Ur Specific [place] 1.010 (1.005-1.030) 11/15/23 18:03 Urine Protein 2+ (Negative) H 11/15/23 18:03 Urine Glucose (UA) 2+ (Normal) H 11/15/23 18:03 Urine Ketones 1+ (Negative) H 11/15/23 18:03 Urine Blood 3+ (Negative) H 11/15/23 18:03 Urine Nitrate Negative (Negative) 11/15/23 18: Urine Bilirubin Neg (Negative) 11/15/23 18:03 Urine Urobilinogen Norm mg/dL (Negative) 11/15/23 18:03 Ur Leukocyte Esterase 2+ (Negative) H 11/15/23 18:03 Urine RBC 10-15 /hpf (0-2) H 11/15/23 18:03 Urine WBC Too numerous to cnt /hpf (0-5) H 11/15/23 18:03 Ur Squamous Epith Cells None /hpf (0-5) 11/15/23 18:03 Amorphous Sediment Not Reportable 11/15/23 18:03 Urine Bacteria 1+ /hpf (NONE) H 11/15/23 18:03 Influenza Type A Ag negative (Negative) 11/15/23 16:42 Influenza Type B Ag negative (Negative) 11/15/23 16:42 SARS-CoV-2 Ag (Rapid) negative (Negative) 11/15/23 16:42 Discharge Plan Discharge Patient Disposition: Home Clinical Impression: Acute UTI, Pneumonia Condition: Stable Prescriptions: New levofloxacin 500 mg tablet 500 mg PO DAILY 7 Days Qty: 7 0RF No Action metformin 500 mg tablet 500 mg PO DAILY (DME) FreeStyle Jimi 2 Sensor Kit See Rx Instructions .ROUTE .MEDSUPPLY Qty: 6 0RF Rx Instructions: change every 14 days (DME) FreeStyle Jimi 2 Stacy Misc See Rx Instructions .Route Qty: 1 0RF Rx Instructions: As directed fluticasone propion-salmeterol [Wixela Inhub] 100-50 mcg/dose Blister With Device 1 inh INHALATION BID albuterol sulfate [ProAir HFA] 90 mcg/actuation HFA aerosol inhaler 2 puff INHALATION Q4H PRN (Reason: Shortness Of Breath) rosuvastatin 40 mg tablet 40 mg PO BEDTIME@19 tamsulosin 0.4 mg capsule 0.4 mg PO BEDTIME@19 gabapentin 400 mg Capsule 400 mg PO TID cyanocobalamin (vitamin B-12) [Vitamin B-12] 1,000 mcg Tablet 1,000 mcg PO DAILY@07 bisacodyl [Dulcolax (bisacodyl)] 10 mg Suppository 10 mg NM DAILY PRN (Reason: Constipation) Rx Instructions: if no bm x 3 days fluticasone propionate 50 mcg/actuation [place],Suspension 2 spray INTRANASAL DAILY@07 Rx Instructions: administer into each nostril finasteride 5 mg Tablet 5 mg PO DAILY@07 coenzyme Q10 30 mg Capsule 30 mg PO DAILY@07 menthol-zinc oxide [Calmoseptine] 0.44-20.6 % ointment See Rx Instructions .ROUTE .COMPLEX Rx Instructions: apply to bilateral buttocks every shift for prevention acetaminophen [Tylenol] 325 mg Tablet 650 mg PO Q6H PRN (Reason: Pain) metoprolol tartrate 100 mg Tablet 100 mg PO BID@07,19 therapeutic multivitamin Tablet 1 tab PO DAILY@07 melatonin 1 mg Tablet 1 mg PO BEDTIME@1930 cholecalciferol (vitamin D3) [Vitamin D3] 25 mcg (1,000 unit) Tablet 25 mcg PO DAILY@07 Xarelto 20 mg Tablet 20 mg PO DAILY@16 Hold Instructions: Resume on 08/17/23. hold for at least 1 week, resume once hgb resonable, ofllo wup with crdilogy Rx Instructions: must administer with evening meal galantamine 4 mg tablet 4 mg PO BID mometasone 50 mcg/actuation [place],Non-Aerosol 1 spray INTRANASAL BID Rx Instructions: administer into each nostril Pacerone 200 mg Tablet See Rx Instructions .ROUTE .COMPLEX Qty: 60 0RF Rx Instructions: 1 tab bid for 15 days, then 1 tab daily methocarbamol 750 mg tablet 750 mg PO Q12H PRN (Reason: muscle spasm) 5 Days Qty: 10 0RF Lantus Solostar U-100 Insulin 100 unit/mL (3 mL) insulin pen 5 unit SUBCUT Q24H 30 Days Qty: 15 0RF Novolog FlexPen U-100 Insulin 100 unit/mL (3 mL) insulin pen See Rx Instructions .ROUTE .COMPLEX Qty: 15 0RF Rx Instructions: inject, subcut, tid after meals, based on insulin sliding scale Discharge Orders: Discharge ED (Routine); Ordered 11/15/23 Ordered By: Joaquim Beard Referrals: Trisha Urena MD [Primary Care Provider] - 1-3 days Patient Instructions: Altered Mental Status (ED), Pneumonia (ED), Urinary Tract Infection in Older Adults (ED), Opioid Safety, Pain Management Activity Restrictions/Additional Instructions: Return for fever despite 2-3 doses of antibiotics, worsening mental status, worsening shortness of breath, any other concerning symptoms. Coding Level of Care Code ED Fur Dry Cleaner for Say Muñoz
[2023-11-15 16:46] LABS: Basophils # 0.1 10^3/uL (0.0-0.1); Basophils % 0.5 %; Eosinophils # 0.4 10^3/uL (0.0-0.8); Eosinophils % 3.1 %; Hematocrit 33.1 % (37-53); Lymphocytes # 2.1 10^3/uL (0.8-4.8); Mean Corpuscular HGB Conc 30.8 g/dL (30-55); Mean Corpuscular Hemoglobin 25.2 pg (27-33); Mean Corpuscular Volume 81.7 fl (82-101); Mean Platelet Volume 9.5 fL (7.4-10.4); Monocytes # 1.2 10^3/uL (0.2-0.9); Monocytes % 9.7 %; Neutrophils % 68.3 %; Nucleated Red Blood Cells % 0 %; Platelet Count 448 10^3/cmm (157-399); Red Blood Count 4.05 10^6/uL (3.85-5.65); Red Cell Distribution Width 17.7 % (12.1-15.1); White Blood Count 11.86 10^3/uL (3.29-11.43)
[2023-11-15 17:02] VITALS: PULSE 115; O2SAT 89
[2023-11-15 17:07] LABS: Alanine Aminotransferase 38 U/L (0-41); Albumin Level 3.5 g/dL (3.5-5.2); Alkaline Phosphatase 113 U/L (40-130); Anion Gap 18.8 (5-19); Aspartate Amino Transferase 50 U/L (0-40); Blood Urea Nitrogen 27 mg/dL (8-23); Calcium 8.9 mg/dL (8.5-10.5); Carbon Dioxide 24 mmol/L (22-29); Chloride 98 mmol/L (98-107); Globulin 4.2 g/dL (1.3-4.6); Glucose 267 mg/dL (65-115); Osmolality Calculated 298 mOsm/kg (285-295); Potassium 3.8 mmol/L (3.5-5.1); Sodium 137 mmol/L (136-145); Total Bilirubin 0.4 mg/dL (0.15-1.2); Total Protein 7.7 g/dL (6.6-8.7)
[2023-11-15] MEDS: sodium chloride 0.9% 1,000 ML 999 ML IV (17:07)
[2023-11-15 17:13] LABS: Influenza A by IFA negative (Negative); Influenza B by IFA negative (Negative); SARS Covid-2 Antigen negative (Negative)
[2023-11-15 17:32] VITALS: BP 117/89; PULSE 114; O2SAT 91
[2023-11-15 18:02] VITALS: PULSE 113; O2SAT 93
[2023-11-15 18:16] LABS: Bilirubin Urine Neg (Negative); Blood Urine 3+ (Negative); Glucose Urine UA 2+ (Normal); Ketones Urine 1+ (Negative); Nitrate Urine Negative (Negative); Protein Urine 2+ (Negative); Urine Appearance Cloudy (CLEAR); Urine Color Yellow (Yellow); Urobilinogen Urine Norm (Negative); pH Urine 6 (5-7)
[2023-11-15 18:17] LABS: Add Urine Culture? Yes; Add Urine Microscopic? YES; Bacteria Urine 1+ /hpf; Leukocyte Esterase Urine 2+ (Negative); WBC Urine TOO NUMEROUS TO CNT /hpf (0-5)
[2023-11-15 18:32] VITALS: PULSE 117; O2SAT 93
[2023-11-15] MEDS: levoFLOXacin 500 mg Tablet PO (19:48)
[2023-11-15 20:03] VITALS: BP 125/84; RESP 18; O2SAT 94
== END 2023-11-15 20:06 | disposition home or self-care (01) ==
PROVIDERS: Emergency Medicine; Emergency Provider Emergency Medicine; PCP Family Medicine
DX: N39.0 Urinary tract infection, site not specified (principal); J18.9 Pneumonia, unspecified organism; Z79.4 Long term (current) use of insulin; Z79.84 Long term (current) use of oral hypoglycemic drugs; Z11.52 Encounter for screening for COVID-19; Z87.891 Personal history of nicotine dependence; Z87.440 Personal history of urinary (tract) infections; G30.9 Alzheimer's disease, unspecified; F02.80 Dementia in other diseases classified elsewhere, unspecified severity, without behavioral disturbance, psychotic disturbance, mood disturbance, and anxiety; E11.42 Type 2 diabetes mellitus with diabetic polyneuropathy; I10 Essential (primary) hypertension; Z85.46 Personal history of malignant neoplasm of prostate
CPT/HCPCS: 36415; 71045; 80053; 81001; 85025; 87086; 87426; 87804; 96360; 96361; 99284; J7030

== ENCOUNTER → 2023-11-18 10:39 | Outpatient (BNVA) | payer OTHER, SELFPAY | PROVIDERS: PCP Family Medicine; Visit Provider Anesthesiology Pain Medicine | DX: M48.062 Spinal stenosis, lumbar region with neurogenic claudication (principal); M51.16 Intervertebral disc disorders with radiculopathy, lumbar region; M47.816 Spondylosis without myelopathy or radiculopathy, lumbar region; M16.0 Bilateral primary osteoarthritis of hip | CPT/HCPCS: 99214 ==

== ENCOUNTER → 2024-02-08 11:45 | Outpatient (BNVA) | payer OTHER, SELFPAY | PROVIDERS: PCP Family Medicine; Visit Provider Internal Medicine | DX: E11.42 Type 2 diabetes mellitus with diabetic polyneuropathy (principal); Z79.4 Long term (current) use of insulin; E78.2 Mixed hyperlipidemia; E11.65 Type 2 diabetes mellitus with hyperglycemia; Z79.84 Long term (current) use of oral hypoglycemic drugs | CPT/HCPCS: 99214 ==

== ENCOUNTER 2024-03-09 04:29 | Emergency (ER) | payer OTHER, MEDICARE, SELFPAY ==
[2024-03-09] VITALS (29 sets, daily range): BP systolic 69–101; BP diastolic 46–67; PULSE 82–126; RESP 14–33; TEMP 36.4–39.6; O2SAT 95–99; BMI 31.7
--- NOTE | 2024-03-09 04:32 | XRR_ITS ---
PROCEDURE INFORMATION: Exam: XR Chest Exam date and time: 03/09/2024 4:43 AM Age: 74 years old Clinical indication: Shortness of breath; Patient HX: Renal stent placed yesterday TECHNIQUE: Imaging protocol: Radiologic exam of the chest. Views: 1 view. COMPARISON: CR XR chest 1V portable [id number] 11/15/2023 5:07 PM FINDINGS: Lungs: Ill-defined opacity of the right lung apex. Bibasilar, yirj-okbgpxw-tmjw-right atelectasis. Pleural spaces: Unremarkable. No pleural effusion. No pneumothorax. Heart/Mediastinum: Unremarkable. No cardiomegaly. Bones/joints: Diffuse degenerative change of the visualized osseous structures. XR/XR chest 1V portable [id number] IMPRESSION: 1. Ill-defined opacity in the right lung apex. Recommend CT of the chest for further assessment. 2. Bibasilar atelectasis, superimposed infection cannot be excluded by imaging.
--- NOTE | 2024-03-09 04:33 | ECG_ITS ---
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 Measurements Intervals [place] Rate: 92 P: 0 CA: 0 QRS: 106 QRSD: 141 T: 29 QT: 408 QTc: 506 Interpretive Statements ATRIAL FIBRILLATION RIGHT AXIS DEVIATION [QRS AXIS > 100] RIGHT BUNDLE BRANCH BLOCK [120+ ms QRS DURATION, UPRIGHT V1, 40+ ms S IN I/aVL/V4/V5/V6] Compared to ECG 08/04/2023 22:53:21 Right-axis deviation now present Right bundle-branch block now present Aberrant conduction of supraventricular beat(s) no longer present Ventricular premature complex(es) no longer present ST (T wave) deviation no longer present Electronically Signed On 03-09-2024 18:15:23 CDT by Aleks Narvaez M.D. [id number]
[2024-03-09 04:39] LABS: ABG PCO2 44.2 mmHg (35-45); ABG PH Result 7.31 (7.35-7.45); Base Excess ABG -4.2 mmol/L (-2.0-2.0); Blood Gas Allen Test Pos; Blood Gas Sample Site Radial, left; Blood Gas Sample Type Arterial; Carboxyhemoglobin 1.5 %THgb (0.4-20.1); HGB O2 Sat 98.6 % (95-100); Ionized Calcium Level - ABG 1.2 mmol/L (1.1-1.4); Methemoglobin 0.3 % (0.4-1.5); Oxygen Saturation ABG > 100.0; Potassium Level - ABG 4.1 mmol/L (3.5-5.0); Total Hemoglobin 9.8 g/dL (14-18)
--- NOTE | 2024-03-09 04:40 | ED_ITS ---
HPI - Altered Mental Status 2 General: Chief Complaint: Altered Mental Status Stated Complaint: resp distress Time Seen by Provider: 03/09/24 04:31 History of Present Illness: 74-year-old man with a history of A-fib on Xarelto, type 2 diabetes, COPD, congestive heart failure, hyperlipidemia, obesity, and chronic urinary retention and urinary problems that have required urinary stents. He follows with urology in [place]. Apparently yesterday he had gone and had 1 stent replaced and it was discussion of having a nephrostomy tube placed as they could not get a stent in the other side. With talking to family at I am unclear what the cause of his need for stents are. She says he does have a small bladder. This morning he presents by ambulance as he was found unresponsive. He was hypoxemic. On presentation here he is febrile and was brought on a nonrebreather. He is no longer requiring that is his blood gas on presentation has an oxygen saturation of over 300. He is a bit more responsive on presentation here and will tell me his name had will follow some commands. He does not have any apparent focal motor deficits. He does have a temp of 103. He is also hypotensive. [facility] ED 2 PFSH: Medical History Yeast UTI Hematuria due to acute cystitis Mild cognitive impairment with memory loss Bacteriuria Alzheimer disease 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 mellitus History of Doppler ultrasound 08/2021 venous no DVT BLE 08/2021 arterial patent vessels, left posterior tibial may be less than 60% stenosis, left dorsalis pedis not visualized Gait instability SARS-CoV-2 positive positive test 11/17/2021 symptoms weakness, hypoglycemia, altered mental status and low grade fever Anemia Intermittent self-catheterization of bladder due to urinary retention History of sleep study 02/22 limited sleep, no apnea noted but did have nocturnal hypoxemia, recommended to use nocturnal oxygen History of electromyography 01/23 Interpretation: The study provides electrodiagnostic evidence for an axonal sensorimotor polyneuropathy based on small or absent CMAPs and SNAPs with denervation seen distally on EMG. The study is limited for evaluation of lumbar radiculopathy related to the patient's anticoagulated state. History of echocardiogram 05/2021 EF 65% History of cardiovascular stress test 05/2021 normal EKG response, perfusion study without findings of ischemia Diabetes mellitus, type II Chronic anticoagulation Taken off Xarelto secondary to hematuria BPH loc w urin obs/LUTS Obstructive pyelonephritis 09/2021 required ureteral stent placement Left ureteral calculus Diabetic foot ulcer 08/2021 - treated with I&D, antibiotics and wound care clinic management Lumbar stenosis with neurogenic claudication 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 mellitus Cervicalgia of ettccibq-rzpuymb-rorhs region Lumbar stenosis L2/3, L3/4, L4/L5, with radiculopathy right lower extremity H/O prostate cancer Obstructive sleep apnea Refuses CPAP HTN (hypertension) previously on treatment for high blood pressure Atrial fibrillation Surgical History Status post excisional debridement 08/2021 left foot History of laminectomy 03/25 bilateral with partial facetectomies at L2-3, L3-4, L4-[address] Smith Other postprocedural status history of radiofrequency ablation for back pain x 2 Status post laser lithotripsy of ureteral calculus (11/06/21) S/P ureteral stent placement (09/2021) subsequent removal H/O esophagogastroduodenoscopy (10/30/21) 10/2021 pedunculated polyps removed from first portion of duodenum, otherwise normal History of colonoscopy (10/30/21) 11/2021 diverticulosis of sigmoid colon and internal hemorrhoids, sessile polyps removed History of back surgery S/P tonsillectomy S/P appendectomy History of pilonidal cyst Family History Grandmother Heart disease Hypertension Grandfather Hypertension MATERNAL Diabetes Mother No problems noted. Father No problems noted. 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 Patient does appear to be more awake than he was described when he was at the alf. He is febrile with a temp of 103. Skin: Warm, dry Head: Normocephalic, atraumatic. Neck: Supple, trachea midline. Eye: Extraocular movements are intact. Ears, nose, mouth and throat: Dry oral mucosa. Cardiovascular: Regular rate and rhythm, Normal peripheral perfusion. Respiratory: Lungs are coarse, slight tachypnea. Gastrointestinal: Soft, Nontender, Non distended, Normal bowel sounds. Musculoskeletal: no deformity. Neurological: Somnolent but oriented when awakened, No obvious focal neurological deficit observed. Psychiatric: unable to assess. Course 2 Vital Signs: Vital signs: Vital Signs Temperature 101.4 F H 03/09/24 05:50 Pulse Rate 112 H 03/09/24 05:55 Respiratory Rate 26 H 03/09/24 05:47 Blood Pressure 85/53 03/09/24 05:46 Pulse Oximetry 96 03/09/24 05:47 Oxygen Delivery Me thod Nasal Cannula 03/09/24 05:47 Oxygen Flow Rate 3 03/09/24 05:47 MDM - Altered Mental Status Medical Decision Making Medical decision making: Differential diagnosis including but not limited to and based on the above HPI, review of systems and physical exam: In this patient with altered mental status: Stroke. Hypoglycemia. Metabolic encephalopathy. Infections such as pneumonia, urinary tract infection, Covid-19, Influenza. Electrolyte abnormalities such as hypernatremia. Renal failure / uremia. Hepatic encephalopathy. Hypoxemia. Hypercapnic respiratory failure. Psychosis. Drug or alcohol intoxication. Medication overdose. Orders placed to evaluate differential diagnosis based on the above differential, HPI and physical exam ABG ordered upon arrival: 7.3 /258 on a nonrebreather. No CO2 retention. pO2 was elevated and so his oxygen has been decreased. Lab Review: Laboratory results were reviewed and interpreted by myself the emergency room physician. Patient with leukocytosis with a white count of 28,000. Acute on chronic renal failure with BUN and creatinine of 32 and 4.1. His baseline is usually around 2-3. Urine has not yet been collected. X-ray of the chest: No obvious focal infiltrates, however his heart size does appear a bit bigger than previous I have concern he has some acute heart failure. This was reviewed and interpreted by myself the emergency room physician. I reviewed the patient's medical record. Consultation: I initially spoke with Dr. Cartwright with urology at [place]. He recommended a noncontrast CT if there is any hydronephrosis which she had. However after further discussion we decided was best just to send the patient. Patient likely will need nephrostomy tube. We discussed no placement of a Villanueva catheter. Consultation: I spoke with Dr. Damon with the hospitalist service at [place] [facility]. At this time he recommends transfer to the ICU in case the patient needs emergent surgical intervention. Consultation: I spoke with Dr. Liao in the emergency room at [facility]. He is excepted the patient to the emergency room. Assessment and plan: Severe sepsis Septic shock Hypotension Fever Tachycardia Presumed source is urinary tract infection. - -3 L normal saline bolus. Fluid volumes based on ideal body weight. -Broad-spectrum antibiotics were administered. Zyvox and meropenem -Sepsis quality measures. -Lactic acid with a reflex was ordered. -Blood cultures were ordered. - Discussed findings and plan with patient. Answered any questions. - All laboratory values were reviewed and interpreted personally by myself, the ER physician - All imaging was reviewed and interpreted personally by myself, the ER physician. - Evaluation and treatment of this problem were appropriate in the emergency setting -I spent a total of >35 minutes of critical care time managing the patient, independent of any other practitioner. -The time involved in the performance of separately reportable procedures was not counted towards critical care time. Lab Data 03/09/24 04:38 03/09/24 04:38 Radiology Impressions Chest X-Ray 03/09/24 04:32 IMPRESSION: 1. Ill-defined opacity in the right lung apex. Recommend CT of the chest for further assessment. 2. Bibasilar atelectasis, superimposed infection cannot be excluded by imaging. Laboratory Results WBC 28.00 10^3/uL (3.29-11.43) H 03/09/24 04:38 RBC 4.01 10^6/uL (3.85-5.65) 03/09/24 04:38 Hgb 10.10 g/dL (11.27-16.99) L 03/09/24 04:38 Hct 34.1 % (37-53) L 03/09/24 04:38 MCV 85.0 fl (82-101) 03/09/24 04:38 MCH 25.2 pg (27-33) L 03/09/24 04:38 MCHC 29.6 g/dL (30-55) L 03/09/24 04:38 RDW 17.5 % (12.1-15.1) H 03/09/24 04:38 Plt Count 359 10^3/cmm (157-399) 03/09/24 04:38 MPV 10.5 fL (7.4-10.4) H 03/09/24 04:38 Neut % (Auto) 93.2 % 03/09/24 04:38 Lymph % (Auto) 1.0 % 03/09/24 04:38 [place] % (Auto) 3.9 % 03/09/24 04:38 Eos % (Auto) 0.3 % 03/09/24 04:38 Baso % (Auto) 0.3 % 03/09/24 04:38 Neut # (Auto) 26.10 10^3/uL (1.8-7.7) H 03/09/24 04:38 Lymph # (Auto) 0.3 10^3/uL (0.8-4.8) L 03/09/24 04:38 [place] # (Auto) 1.1 10^3/uL (0.2-0.9) H 03/09/24 04:38 Eos # (Auto) 0.1 10^3/uL (0.0-0.8) 03/09/24 04:38 Baso # (Auto) 0.1 10^3/uL (0.0-0.1) 03/09/24 04:38 Nucleated RBC % (auto) 0 % 03/09/24 04:38 Nucleated RBCs # 0.0 /100WBC 03/09/24 04:38 Specimen Type Arterial 03/09/24 04:27 Sample Site Radial, left 03/09/24 04:27 ABG pH 7.31 (7.35-7.45) L 03/09/24 04:27 ABG pCO2 44.2 mmHg (35-45) 03/09/24 04:27 ABG pO2 258.0 mmHg (80.0-100.0) H 03/09/24 04:27 ABG PO2/FiO2 Ratio 0 03/09/24 04:27 ABG HCO3 22.0 mmol/L (22-26) 03/09/24 04:27 ABG O2 Saturation > 100.0 03/09/24 04:27 ABG Base Excess -4.2 mmol/L (-2.0-2.0) L 03/09/24 04:27 Stevenson Test Pos 03/09/24 04:27 A-a O2 Gradient 50.3 mmHg (5-10) H 03/09/24 04:27 Hematocrit 30.0 % (42-52) L 03/09/24 04:27 Hgb O2 Saturation 98.6 % (95-100) 03/09/24 04:27 Carboxyhemoglobin 1.5 %THgb (0.4-20.1) 03/09/24 04:27 Methemoglobin 0.3 % (0.4-1.5) L 03/09/24 04:27 Total Hemoglobin 9.8 g/dL (14-18) L 03/09/24 04:27 Sodium 139.0 mmol/L (131-143) 03/09/24 04:27 Potassium 4.1 mmol/L (3.5-5.0) 03/09/24 04:27 Glucose 191.0 mg/dL (70-115) H 03/09/24 04:27 Ionized Calcium 1.2 mmol/L (1.1-1.4) 03/09/24 04:27 O2 Delivery Device Nrb 03/09/24 04:27 O2 Liters/Min 15.0 % 03/09/24 04:27 FiO2 100.0 % 03/09/24 04:27 [employer] [place] 03/09/24 04:27 Sodium 140 mmol/L (136-145) 03/09/24 04:38 Potassium 4.4 mmol/L (3.5-5.1) 03/09/24 04:38 Chloride 102 mmol/L (98-107) 03/09/24 04:38 Carbon Dioxide 19 mmol/L (22-29) L 03/09/24 04:38 Anion Gap 23.4 (5-19) H 03/09/24 04:38 BUN 32 mg/dL (8-23) H 03/09/24 04:38 Creatinine 4.1 mg/dL (0.7-1.2) H 03/09/24 04:38 GFR Calculation Not Reportable 03/09/24 04:38 Glucose 187 mg/dL (65-115) H 03/09/24 04:38 POC Glucose 199 mg/dL (70-110) H 03/09/24 04:39 Calculated Osmolality 302 mOsm/kg (285-295) H 03/09/24 04:38 Lactic Acid 3.1 mmol/L (0.5-2.2) H 03/09/24 04:38 Calcium 8.6 mg/dL (8.5-10.5) 03/09/24 04:38 Total Bilirubin 0.5 mg/dL (0.15-1.2) 03/09/24 04:38 AST 22 U/L (0-40) 03/09/24 04:38 ALT 10 U/L (0-41) 03/09/24 04:38 Alkaline Phosphatase 64 U/L (40-130) 03/09/24 04:38 Troponin T Baseline 64 ng/L (0-15) H 03/09/24 04:38 C-Reactive Protein 116.4 mg/L (0.0-4.9) H 03/09/24 04:38 NT-Pro-B Natriuret Pep 32176 pg/mL (0-450) H 03/09/24 04:38 Total Protein 6.7 g/dL (6.6-8.7) 03/09/24 04:38 Albumin 3.6 g/dL (3.5-5.2) 03/09/24 04:38 Globulin 3.1 g/dL (1.3-4.6) 03/09/24 04:38 Procalcitonin 82.58 ng/mL (0-0.5) H 03/09/24 04:38 All radiology interpretation(s) finalized by discharge Discharge Plan Discharge Patient Disposition: Xfer Short-Term Hosp Clinical Impression: Acute metabolic encephalopathy Sepsis Qualifiers: Sepsis type: sepsis due to unspecified organism Sepsis acute organ dysfunction status: with acute organ dysfunction Severe sepsis acute organ dysfunction type: acute renal failure Acute renal failure type: unspecified Severe sepsis shock status: with septic shock Qualified Code(s): A41.9 - Sepsis, unspecified organism Urinary tract infection Qualifiers: Urinary tract infection type: site unspecified Hematuria presence: without hematuria Qualified Code(s): N39.0 - Urinary tract infection, site not specified Condition: Stable Referrals: Trisha Urena MD [Primary Care Provider] - Patient Instructions: Altered Mental Status (ED) Coding Level of Care Code ED Warehouse Supervisor 3Rd Shift for Say Muñoz
[2024-03-09 04:41] LABS: Alveolar-Arterial Oxygen Gradi 50.3 mmHg (5-10); Blood Gas Operator Identificat MONRO; Oxygen Device NRB; PO2 FiO2 Ratio Arterial Blood 0
[2024-03-09] MEDS: sodium chloride 0.9% 1,000 ML 999 ML IV ×2 (04:41→05:48)
[2024-03-09] MEDS: methylPREDNISolone sod succ 125 mg/2 mL INJ IVP (04:41)
[2024-03-09 04:42] LABS: Glucose Point of Care 199 mg/dL (70-110)
[2024-03-09] MEDS: meropenem 500 MG in sodium chloride 0.9% (plus) 50 ML 100 MG IV (04:42)
[2024-03-09] MEDS: sodium chloride 0.9% 500 ML 999 ML IV (04:42)
[2024-03-09 04:47] LABS: Basophils # 0.1 10^3/uL (0.0-0.1); Basophils % 0.3 %; Eosinophils # 0.1 10^3/uL (0.0-0.8); Eosinophils % 0.3 %; Hematocrit 34.1 % (37-53); Lymphocytes # 0.3 10^3/uL (0.8-4.8); Mean Corpuscular HGB Conc 29.6 g/dL (30-55); Mean Corpuscular Hemoglobin 25.2 pg (27-33); Mean Platelet Volume 10.5 fL (7.4-10.4); Monocytes # 1.1 10^3/uL (0.2-0.9); Monocytes % 3.9 %; Neutrophils % 93.2 %; Nucleated Red Blood Cells % 0 %; Platelet Count 359 10^3/cmm (157-399); Red Blood Count 4.01 10^6/uL (3.85-5.65); Red Cell Distribution Width 17.5 % (12.1-15.1)
[2024-03-09] MEDS: linezolid premix 600 MG/300 ML PREMIX 300 MG IV (04:48)
[2024-03-09] MEDS: acetaminophen 650 mg Supp PR (04:54)
[2024-03-09 05:06] LABS: Lactic Sepsis W/Reflex 3.1 mmol/L (0.5-2.2)
[2024-03-09 05:08] LABS: Troponin(5th) Baseline 64 ng/L (0-15)
[2024-03-09 05:17] LABS: NT Pro B Type Natriuretic Pept 10649 pg/mL (0-450); Procalcitonin 82.58 ng/mL (0-0.5)
[2024-03-09 05:28] LABS: Alanine Aminotransferase 10 U/L (0-41); Albumin Level 3.6 g/dL (3.5-5.2); Alkaline Phosphatase 64 U/L (40-130); Anion Gap 23.4 (5-19); Aspartate Amino Transferase 22 U/L (0-40); Blood Urea Nitrogen 32 mg/dL (8-23); C Reactive Protein 116.4 mg/L (0.0-4.9); Calcium 8.6 mg/dL (8.5-10.5); Carbon Dioxide 19 mmol/L (22-29); Chloride 102 mmol/L (98-107); Globulin 3.1 g/dL (1.3-4.6); Glucose 187 mg/dL (65-115); Osmolality Calculated 302 mOsm/kg (285-295); Potassium 4.4 mmol/L (3.5-5.1); Sodium 140 mmol/L (136-145); Total Bilirubin 0.5 mg/dL (0.15-1.2); Total Protein 6.7 g/dL (6.6-8.7)
--- NOTE | 2024-03-09 05:28 | CTR_ITS ---
PROCEDURE INFORMATION: Exam: CT Abdomen And Pelvis Without Contrast Exam date and time: 03/09/2024 5:38 AM Age: 74 years old Clinical indication: Other: Renal failure; Prior surgery; Surgery date: Post-operative (0-2 days); Surgery type: Renal stent; Additional info: Renal failure, R/O obstructive uropathy per hospitalist TECHNIQUE: Imaging protocol: Computed tomography of the abdomen and pelvis without contrast. Radiation optimization: All CT scans at this facility use at least one of these dose optimization techniques: automated exposure control; mA and/or kV adjustment per patient size (includes targeted exams where dose is matched to clinical indication); or iterative reconstruction. COMPARISON: CT abdomen pelvis wo con [id number] 08/03/2023 9:35 PM RADIATION DOSE METRICS: Total DLP (mGy-cm): 1132.8 FINDINGS: Lungs: Lung bases are clear as visualized. Heart: Small volume pericardial effusion. Coronary arteries: Severe calcified atherosclerotic disease of the visualized coronary vasculature. Liver: Normal. No mass. Gallbladder and bile ducts: Vicarious excretion of the contrast in the gallbladder. Pancreas: Normal. No ductal dilation. Spleen: Normal. No splenomegaly. Adrenal glands: Normal. No mass. Kidneys and ureters: Double J stent present within the right ureter. Small volume air is present within the right renal collecting system. Nonobstructive punctate right nephrolithiasis is present in the posterior calices of the lower renal pole. Redemonstrated and unchanged diffuse left ureterectasis. Unchanged moderate to severe left hydronephrosis. Symmetric bilateral perinephric stranding. Stomach and bowel: Diverticulosis without evidence of diverticulitis. Appendix: No evidence of appendicitis. Intraperitoneal space: Unremarkable. No free air. No significant fluid collection. Vasculature: Moderate to severe calcified atherosclerotic disease of the visualized aorta and its major branches. Lymph nodes: Unremarkable. No enlarged lymph nodes. Urinary bladder: Urinary bladder is decompressed. Reproductive: Unremarkable as visualized. Bones/joints: Unremarkable. No acute fracture. Soft tissues: Unremarkable. CT/CT abdomen pelvis wo con [id number] IMPRESSION: 1. Patient is status post right ureteral stent placement without obvious evidence for acute surgical complication. Small volume of air is present within the right renal collecting system and urinary bladder, urinary tract infection cannot be entirely excluded, correlate with laboratory and clinical findings. 2. Redemonstrated left ureterectasis and left moderate to severe hydronephrosis of similar caliber to prior comparisons, no obvious obstructing mass or lesion. 3. Additional findings as above.
[2024-03-09 05:30] LABS: Creatinine Clr Calc Pharmacy 19.6005
[2024-03-09] MEDS: ipratropium-albuterol 3 mL Neb INHALATION (05:46)
[2024-03-09] MEDS: albuterol 2.5 mg/3 mL Neb INHALATION (05:46)
[2024-03-09 06:31] LABS: Reflex Lactate Order REFLEX LACTIC ORDERD
[2024-03-09 06:41] LABS: Adenovirus Not Detected (NOT DETECT); Chlamydia Pneumoniae Not Detected (NOT DETECT); Coronavirus 229E,HKU1,NL63,OC4 Not Detected (NOT DETECT); Human Metapneumovirus Not Detected (NOT DETECT); Human Rhinovirus/Enterovirus Not Detected (NOT DETECT); Influenza A Not Detected (NOT DETECT); Influenza A H1 Not Detected (NOT DETECT); Influenza A H1-2009 Not Detected (NOT DETECT); Influenza A H3 Not Detected (NOT DETECT); Influenza B Not Detected (NOT DETECT); Mycoplasma Pneumoniae Not Detected (NOT DETECT); Parainfluenza Virus Type 1 Not Detected (NOT DETECT); Parainfluenza Virus Type 2 Not Detected (NOT DETECT); Parainfluenza Virus Type 3 Not Detected (NOT DETECT); Parainfluenza Virus Type 4 Not Detected (NOT DETECT); Respiratory Syncytial Virus A Not Detected (NOT DETECT); Respiratory Syncytial Virus B Not Detected (NOT DETECT); SARS-COV-2 Not Detected (NOT DETECT)
[2024-03-09 07:03] LABS: Troponin 5 2HR 49.42 ng/L (0-15)
[2024-03-09 07:09] LABS: Troponin 5 2HR Delta -14.58 ABS# (0-10)
--- NOTE | 2024-03-09 07:09 | PC.NURSE ---
Vital Signs: b/p 69/51, Dr. Maxwell notified and at bedside.
[2024-03-09 08:26] LABS: Lactic Acid level (Lactate) 3.1 mmol/L (0.5-2.2)
--- NOTE | 2024-03-09 08:38 | NUR.SHIFT ---
Report given to [facility] @[phone]
--- NOTE | 2024-03-09 08:55 | PC.NURSE ---
pt left facility at approx [phone]
== END 2024-03-09 08:50 | disposition short-term general hospital (02) ==
PROVIDERS: Emergency Provider Emergency Medicine; PCP Family Medicine
DX: A41.9 Sepsis, unspecified organism (principal); N39.0 Urinary tract infection, site not specified; R65.21 Severe sepsis with septic shock; N17.9 Acute kidney failure, unspecified; G93.41 Metabolic encephalopathy; Z87.891 Personal history of nicotine dependence; G30.9 Alzheimer's disease, unspecified; F02.80 Dementia in other diseases classified elsewhere, unspecified severity, without behavioral disturbance, psychotic disturbance, mood disturbance, and anxiety; Z87.440 Personal history of urinary (tract) infections; E11.40 Type 2 diabetes mellitus with diabetic neuropathy, unspecified; I10 Essential (primary) hypertension; Z85.46 Personal history of malignant neoplasm of prostate
CPT/HCPCS: 36415; 36416; 36600; 71045; 74176; 80051; 80053; 82330; 82805; 82962; 83605; 83880; 84145; 84484; 85025; 86140; 87486; 87581; 87633; 93005; 94640; 96365; 96366; 96367; 96375; 99285; J2020; J2185; J2919; J7030; J7040; J7613

== ENCOUNTER 2024-03-26 21:27 | Emergency (ER) | payer OTHER, MEDICARE, SELFPAY ==
[2024-03-26 21:31] VITALS: BP 103/63; PULSE 91; RESP 16; TEMP 37.4; O2SAT 96; BMI 36.3
--- NOTE | 2024-03-26 22:09 | XRR_ITS ---
PROCEDURE INFORMATION: Exam: XR Chest Exam date and time: 03/26/2024 10:16 PM Age: 74 years old Clinical indication: Fever; Additional info: AMS; Fever; Nephrostomy tube TECHNIQUE: Imaging protocol: Radiologic exam of the chest. Views: 1 view. COMPARISON: CR (CHEST, ) 03/09/2024 4:43 AM FINDINGS: Tubes, catheters and devices: Left-sided PICC line with tip at the atrial caval junction. Lungs: Unremarkable. No consolidation. Pleural spaces: Unremarkable. No pleural effusion. No pneumothorax. Heart/Mediastinum: Unremarkable. No cardiomegaly. Bones/joints: Unremarkable. XR/XR chest 1V portable [id number] IMPRESSION: Left-sided PICC line with tip at the atrial caval junction.
--- NOTE | 2024-03-26 22:10 | CTR_ITS ---
PROCEDURE INFORMATION: Exam: CT Abdomen And Pelvis Without Contrast Exam date and time: 03/26/2024 10:23 PM Age: 74 years old Clinical indication: Prior surgery; Surgery date: 6+ months; Surgery type: RT ureteral stent. Left nephrostomy. Appy. Patient HX: EMS arrival from [facility] with fever. History of recurrent nephrolithiasis and UTI. Prostate cancer. ; Additional info: AMS, fever, nephrostomy tube TECHNIQUE: Imaging protocol: Computed tomography of the abdomen and pelvis without contrast. Radiation optimization: All CT scans at this facility use at least one of these dose optimization techniques: automated exposure control; mA and/or kV adjustment per patient size (includes targeted exams where dose is matched to clinical indication); or iterative reconstruction. COMPARISON: CT abdomen pelvis wo con [id number] 03/09/2024 5:38 AM RADIATION DOSE METRICS: Total DLP (mGy-cm): 1030.03 FINDINGS: Tubes, catheters and devices: Left percutaneous nephrostomy to seen in place. Lungs: Emphysematous changes. Bibasilar right greater left atelectasis versus minimal infiltrate. Heart: Trace pericardial effusion. Coronary arteries: Coronary artery atherosclerotic calcifications. Liver: Normal. No mass. Gallbladder and biliary ducts: Normal. No calcified stones. No ductal dilation. Pancreas: Normal. No ductal dilation. Spleen: Normal. No splenomegaly. Adrenal glands: Normal. No mass. Kidneys and ureters: Bilateral perinephric edema bilaterally likely reflecting renal insufficiency, please correlate pyelonephritis. Right ureteral stent place. Right kidney nonobstructing calyceal stone. Stomach and bowel: Diverticulosis without diverticulitis. Appendix: No evidence of appendicitis. Intraperitoneal space: Unremarkable. No free air. No significant fluid collection. Vasculature: Unremarkable. No abdominal aortic aneurysm. Lymph nodes: Unremarkable. No enlarged lymph nodes. Urinary bladder: Unremarkable as visualized. Reproductive: Unremarkable as visualized. Bones/joints: Multilevel degenerative changes throughout the spine with few sclerosis of the vertebral bodies, likely related to degenerative changes and possibly associated chronic renal disease. Soft tissues: Small bilateral fat containing inguinal hernias without bowel or inflammation. CT/CT kidney stone [id number] IMPRESSION: 1. Bilateral perinephric edema bilaterally likely reflecting renal insufficiency, please correlate pyelonephritis. 2. Multilevel degenerative changes throughout the spine with few sclerosis of the vertebral bodies, likely related to degenerative changes and possibly associated chronic renal disease. 3. Diverticulosis without diverticulitis. 4. Emphysematous changes. 5. Bibasilar right greater left atelectasis versus minimal infiltrate. 6. Trace pericardial effusion. 7. Coronary artery atherosclerotic calcifications. 8. Right ureteral stent place. 9. Right kidney nonobstructing calyceal stone. 10. Left percutaneous nephrostomy to seen in place. 11. Small bilateral fat containing inguinal hernias without bowel or inflammation.
[2024-03-26 22:36] LABS: Basophils # 0.1 10^3/uL (0.0-0.1); Basophils % 0.9 %; Eosinophils # 0.4 10^3/uL (0.0-0.8); Eosinophils % 3.9 %; Hematocrit 30.9 % (37-53); Lymphocytes # 2.4 10^3/uL (0.8-4.8); Lymphocytes % 22.8 %; Mean Corpuscular HGB Conc 29.8 g/dL (30-55); Mean Corpuscular Hemoglobin 24.5 pg (27-33); Mean Corpuscular Volume 82.4 fl (82-101); Mean Platelet Volume 10.1 fL (7.4-10.4); Monocytes # 0.9 10^3/uL (0.2-0.9); Monocytes % 9.1 %; Neutrophils # 6.52 10^3/uL (1.8-7.7); Neutrophils % 63.1 %; Nucleated Red Blood Cells % 0 %; Platelet Count 400 10^3/cmm (157-399); Red Blood Count 3.75 10^6/uL (3.85-5.65); Red Cell Distribution Width 17.3 % (12.1-15.1); White Blood Count 10.32 10^3/uL (3.29-11.43)
[2024-03-26 22:51] LABS: Lactic Sepsis W/Reflex 1.2 mmol/L (0.5-2.2)
[2024-03-26 22:52] LABS: Alanine Aminotransferase 19 U/L (0-41); Albumin Level 3.1 g/dL (3.5-5.2); Alkaline Phosphatase 123 U/L (40-130); Anion Gap 17.4 (5-19); Aspartate Amino Transferase 25 U/L (0-40); Blood Urea Nitrogen 27 mg/dL (8-23); C Reactive Protein 106.4 mg/L (0.0-4.9); Calcium 9.6 mg/dL (8.5-10.5); Carbon Dioxide 27 mmol/L (22-29); Chloride 100 mmol/L (98-107); Creatinine Clr Calc Pharmacy 47.7395; Glucose 129 mg/dL (65-115); Magnesium 1.9 mg/dL (1.7-2.3); Osmolality Calculated 297 mOsm/kg (285-295); Potassium 4.4 mmol/L (3.5-5.1); Sodium 140 mmol/L (136-145); Total Bilirubin 0.4 mg/dL (0.15-1.2); Total Protein 7.1 g/dL (6.6-8.7)
[2024-03-26] MEDS: piperacillin-tazobactam 3.375 GM in sodium chloride 0.9% (plus) 50 ML IV (22:56)
[2024-03-26] MEDS: MEROPENEM 2,000 MG in sodium chloride 0.9% (plus) 50 ML 100 MG IV (22:56)
[2024-03-26] MEDS: sodium chloride 0.9% 1,000 ML 999 ML IV (22:57)
[2024-03-27] VITALS (16 sets, daily range): BP systolic 98–131; BP diastolic 64–96; PULSE 82–106; RESP 14–18; O2SAT 93–100
--- NOTE | 2024-03-27 00:46 | ED_ITS ---
HPI - Altered Mental Status 2 General: Chief Complaint: Altered Mental Status Stated Complaint: AMS Time Seen by Provider: 03/26/24 21:42 History of Present Illness: 74-year-old male with a history of multi ple episodes of urinary tract infection. He has had bladder tumor removal in the past. Currently, he has a right ureteral stent in place, and a left nephrostomy tube. He has been on antibiotics through a PICC line. Usually, his first sign of infection is confusion. [facility] staff noted he was more confused today. He was running a temperature around 99-100. The patient himself says that he has had some chills today. He feels as if he may be more confused than normal today. Review of Systems 2 Const: Reports: fever(s) and chills ENMT: Denies: throat pain Card: Denies: chest pain Resp: Denies: dyspnea GI: Denies: abdominal pain, nausea or vomiting Musc: Reports: back pain PFSH ED 2 PFSH: Medical History Yeast UTI Hematuria due to acute cystitis Mild cognitive impairment with memory loss Bacteriuria Alzheimer disease 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 mellitus History of Doppler ultrasound 08/2021 venous no DVT BLE 08/2021 arterial patent vessels, left posterior tibial may be less than 60% stenosis, left dorsalis pedis not visualized Gait instability SARS-CoV-2 positive positive test 11/17/2021 symptoms weakness, hypoglycemia, altered mental status and low grade fever Anemia Intermittent self-catheterization of bladder due to urinary retention History of sleep study 02/22 limited sleep, no apnea noted but did have nocturnal hypoxemia, recommended to use nocturnal oxygen History of electromyography 01/23 Interpretation: The study provides electrodiagnostic evidence for an axonal sensorimotor polyneuropathy based on small or absent CMAPs and SNAPs with denervation seen distally on EMG. The study is limited for evaluation of lumbar radiculopathy related to the patient's anticoagulated state. History of echocardiogram 05/2021 EF 65% History of cardiovascular stress test 05/2021 normal EKG response, perfusion study without findings of ischemia Diabetes mellitus, type II Chronic anticoagulation Taken off Xarelto secondary to hematuria BPH loc w urin obs/LUTS Obstructive pyelonephritis 09/2021 required ureteral stent placement Left ureteral calculus Diabetic foot ulcer 08/2021 - treated with I&D, antibiotics and wound care clinic management Lumbar stenosis with neurogenic claudication 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 mellitus Cervicalgia of ywzmnvgo-[id number]-xeftg region Lumbar stenosis L2/3, L3/4, L4/L5, with radiculopathy right lower extremity H/O prostate cancer Obstructive sleep apnea Refuses CPAP HTN (hypertension) previously on treatment for high blood pressure Atrial fibrillation Surgical History Status post excisional debridement 08/2021 left foot History of laminectomy 03/25 bilateral with partial facetectomies at L2-3, L3-4, L4-[address] Smith Other postprocedural status history of radiofrequency ablation for back pain x 2 Status post laser lithotripsy of ureteral calculus (11/06/21) S/P ureteral stent placement (09/2021) subsequent removal H/O esophagogastroduodenoscopy (10/30/21) 10/2021 pedunculated polyps removed from first portion of duodenum, otherwise normal History of colonoscopy (10/30/21) 11/2021 diverticulosis of sigmoid colon and internal hemorrhoids, sessile polyps removed History of back surgery S/P tonsillectomy S/P appendectomy History of pilonidal cyst Family History Grandmother Heart disease Hypertension Grandfather Hypertension MATERNAL Diabetes Mother No problems noted. Father No problems noted. 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 Exam 2 Const: GENERAL APPEARANCE: ill appearing (Mildly) and frail appearing (Mildly) HENMT: COMMON NORMALS: normocephalic, atraumatic and Normal external nose present HEAD & SCALP: normocephalic and atraumatic NOSE: Normal external nose present Eye: COMMON NORMALS: EOMs intact bilaterally Neck/C-Spine: GENERAL: Yes trachea midline Chest: COMMONS NORMALS: normal inspection of the chest CHEST: Yes Symmetrical chest wall rise Resp: COMMON NORMALS: normal respiratory effort, No use of accessory muscles and clear to auscultation bilaterally AUSCULTATION: clear to auscultation bilaterally Cardio: COMMON NORMALS: regular rate and regular rhythm RATE: regular rate RHYTHM: regular rhythm GI: COMMON NORMALS: Normal to inspection, nondistended, normoactive bowel sounds present Neuro: FARRUKH COMA SCALE: document GCS findings Aurora coma scale eye opening: Spontaneous Aurora coma scale verbal response: Confused Aurora coma scale motor response: Obey commands Farrukh coma scale total score: 14 Skin: COMMON NORMALS: no rashes or lesions noted GENERAL SKIN EXAM: no rashes or lesions noted Course 2 Vital Signs: Vital signs: Vital Signs Temperature 99.3 F 03/26/24 21:31 Pulse Rate 91 03/26/24 21:31 Respiratory Rate 18 03/27/24 01:18 Blood Pressure 103/63 03/26/24 21:31 Pulse Oximetry 94 03/27/24 01:18 MDM - Altered Mental Status Medical Decision Making 74-year-old male with ureter stent on the right, and nephrostomy tube on the left. He has had multiple urological problems, with urinary tract infections to grow resistant organisms such as ESBL E. coli. He is running a fever, and having delusions despite being on IV antibiotics through his PICC line in the intermediate. He is afebrile here, although his temperature is mildly elevated. His hemoglobin is 9.2, white blood cell count 10.3. His lactic acid is normal. His CRP is elevated at 106. Chest x-ray is nonacute. Belly CT shows perinephric edema bilaterally. He has received Zosyn and meropenem here. We do not have urology services here. He was treated at [facility] by his urologist and the hospitalist team on his last hospitalization a couple of weeks ago for this. We have spoken with them, and they do not have urological coverage until 7 AM. They are requesting we call back at that time to speak to urology. He will go by ground ambulance to [facility] once accepted. Lab Data 03/26/24 21:45 03/26/24 21:45 Radiology Impressions Chest X-Ray 03/26/24 22:09 IMPRESSION: Left-sided PICC line with tip at the atrial caval junction. Abdomen/Pelvis CT 03/26/24 22:10 IMPRESSION: 1. Bilateral perinephric edema bilaterally likely reflecting renal insufficiency, please correlate pyelonephritis. 2. Multilevel degenerative changes throughout the spine with few sclerosis of the vertebral bodies, likely related to degenerative changes and possibly associated chronic renal disease. 3. Diverticulosis without diverticulitis. 4. Emphysematous changes. 5. Bibasilar right greater left atelectasis versus minimal infiltrate. 6. Trace pericardial effusion. 7. Coronary artery atherosclerotic calcifications. 8. Right ureteral stent place. 9. Right kidney nonobstructing calyceal stone. 10. Left percutaneous nephrostomy to seen in place. 11. Small bilateral fat containing inguinal hernias without bowel or inflammation. Laboratory Results WBC 10.32 10^3/uL (3.29-11.43) 03/26/24 21:45 RBC 3.75 10^6/uL (3.85-5.65) L 03/26/24 21:45 Hgb 9.20 g/dL (11.27-16.99) L 03/26/24 21:45 Hct 30.9 % (37-53) L 03/26/24 21:45 MCV 82.4 fl (82-101) 03/26/24 21:45 MCH 24.5 pg (27-33) L 03/26/24 21:45 MCHC 29.8 g/dL (30-55) L 03/26/24 21:45 RDW 17.3 % (12.1-15.1) H 03/26/24 21:45 Plt Count 400 10^3/cmm (157-399) H 03/26/24 21:45 MPV 10.1 fL (7.4-10.4) 03/26/24 21:45 Neut % (Auto) 63.1 % 03/26/24 21:45 Lymph % (Auto) 22.8 % 03/26/24 21:45 Mcpherson % (Auto) 9.1 % 03/26/24 21:45 Eos % (Auto) 3.9 % 03/26/24 21:45 Baso % (Auto) 0.9 % 03/26/24 21:45 Neut # (Auto) 6.52 10^3/uL (1.8-7.7) 03/26/24 21:45 Lymph # (Auto) 2.4 10^3/uL (0.8-4.8) 03/26/24 21:45 Mcpherson # (Auto) 0.9 10^3/uL (0.2-0.9) 03/26/24 21:45 Eos # (Auto) 0.4 10^3/uL (0.0-0.8) 03/26/24 21:45 Baso # (Auto) 0.1 10^3/uL (0.0-0.1) 03/26/24 21:45 Nucleated RBC % (auto) 0 % 03/26/24 21:45 Nucleated RBCs # 0.0 /100WBC 03/26/24 21:45 Sodium 140 mmol/L (136-145) 03/26/24 21:45 Potassium 4.4 mmol/L (3.5-5.1) 03/26/24 21:45 Chloride 100 mmol/L (98-107) 03/26/24 21:45 Carbon Dioxide 27 mmol/L (22-29) 03/26/24 21:45 Anion Gap 17.4 (5-19) 03/26/24 21:45 BUN 27 mg/dL (8-23) H 03/26/24 21:45 Creatinine 1.8 mg/dL (0.7-1.2) H 03/26/24 21:45 GFR Calculation Not Reportable 03/26/24 21:45 Glucose 129 mg/dL (65-115) H 03/26/24 21:45 Calculated Osmolality 297 mOsm/kg (285-295) H 03/26/24 21:45 Lactic Acid 1.2 mmol/L (0.5-2.2) 03/26/24 21:45 Calcium 9.6 mg/dL (8.5-10.5) 03/26/24 21:45 Magnesium 1.9 mg/dL (1.7-2.3) 03/26/24 21:45 Total Bilirubin 0.4 mg/dL (0.15-1.2) 03/26/24 21:45 AST 25 U/L (0-40) 03/26/24 21:45 ALT 19 U/L (0-41) 03/26/24 21:45 Alkaline Phosphatase 123 U/L (40-130) 03/26/24 21:45 C-Reactive Protein 106.4 mg/L (0.0-4.9) H 03/26/24 21:45 Total Protein 7.1 g/dL (6.6-8.7) 03/26/24 21:45 Albumin 3.1 g/dL (3.5-5.2) L 03/26/24 21:45 Globulin 4.0 g/dL (1.3-4.6) 03/26/24 21:45 Urine Color Yellow (Yellow) 03/27/24 01:05 Urine Appearance Cloudy (CLEAR) A 03/27/24 01:05 Urine pH 9 (5-7) H 03/27/24 01:05 Ur Specific [place] 1.010 (1.005-1.030) 03/27/24 01:05 Urine Protein 1+ (Negative) H 03/27/24 01:05 Urine Glucose (UA) Norm (Normal) 03/27/24 01:05 Urine Ketones Negative (Negative) 03/27/24 01:05 Urine Blood 3+ (Negative) H 03/27/24 01:05 Urine Nitrate Negative (Negative) 03/27/24 01:05 Urine Bilirubin Neg (Negative) 03/27/24 01:05 Prot Sulfosalicylic Acd Positive (Negative) 03/27/24 01:05 Urine Urobilinogen Neg mg/dL (Negative) 03/27/24 01:05 Ur Leukocyte Esterase 2+ (Negative) H 03/27/24 01:05 Urine RBC 15-25 /hpf (0-2) H 03/27/24 01:05 Urine WBC 25-40 /hpf (0-5) H 03/27/24 01:05 Ur Squamous Epith Cells 0-4 /hpf (0-5) H 03/27/24 01:05 Amorphous Sediment Not Reportable 03/27/24 01:05 Urine Bacteria 2+ /hpf (NONE) H 03/27/24 01:05 All radiology interpretation(s) finalized by discharge Discharge Plan Discharge Patient Disposition: Xfer Short-Term Hosp Clinical Impression: Bilateral hydronephrosis, Urinary tract infection Condition: Serious Prescriptions: No Action (DME) Dexcom G7 Sensor Device See Rx Instructions .Route Qty: 3 1RF Rx Instructions: As directed (DME) Dexcom G7 [address] Magistrate Misc See Rx Instructions .ROUTE Qty: 1 0RF Rx Instructions: As directed metformin 500 mg tablet 500 mg PO DAILY (DME) FreeStyle Jimi 2 [place] Misc See Rx Instructions .Route Qty: 1 0RF Rx Instructions: As directed (DME) FreeStyle Jimi 2 Sensor Kit See Rx Instructions .ROUTE .MEDSUPPLY Qty: 6 1RF Rx Instructions: change every 14 days fluticasone propion-salmeterol [Wixela Inhub] 100-50 mcg/dose Blister With Device 1 inh INHALATION BID albuterol sulfate [ProAir HFA] 90 mcg/actuation HFA aerosol inhaler 2 puff INHALATION Q4H PRN (Reason: Shortness Of Breath) rosuvastatin 40 mg tablet 40 mg PO BEDTIME@19 tamsulosin 0.4 mg capsule 0.4 mg PO BEDTIME@19 gabapentin 400 mg Capsule 400 mg PO TID cyanocobalamin (vitamin B-12) [Vitamin B-12] 1,000 mcg Tablet 1,000 mcg PO DAILY@07 bisacodyl [Dulcolax (bisacodyl)] 10 mg Suppository 10 mg MS DAILY PRN (Reason: Constipation) Rx Instructions: if no bm x 3 days fluticasone propionate 50 mcg/actuation [place],Suspension 2 spray INTRANASAL DAILY@07 Rx Instructions: administer into each nostril finasteride 5 mg Tablet 5 mg PO DAILY@07 coenzyme Q10 30 mg Capsule 30 mg PO DAILY@07 menthol-zinc oxide [Calmoseptine] 0.44-20.6 % ointment See Rx Instructions .ROUTE .COMPLEX Rx Instructions: apply to bilateral buttocks every shift for prevention acetaminophen [Tylenol] 325 mg Tablet 650 mg PO Q6H PRN (Reason: Pain) metoprolol tartrate 100 mg Tablet 100 mg PO BID@07,19 therapeutic multivitamin Tablet 1 tab PO DAILY@07 melatonin 1 mg Tablet 1 mg PO BEDTIME@1930 cholecalciferol (vitamin D3) [Vitamin D3] 25 mcg (1,000 unit) Tablet 25 mcg PO DAILY@07 Xarelto 20 mg Tablet 20 mg PO DAILY@16 Hold Instructions: Resume on 08/17/23. hold for at least 1 week, resume once hgb resonable, ofllo wup with crdilogy Rx Instructions: must administer with evening meal galantamine 4 mg tablet 4 mg PO BID mometasone 50 mcg/actuation [place],Non-Aerosol 1 spray INTRANASAL BID Rx Instructions: administer into each nostril amiodarone [Pacerone] 200 mg Tablet See Rx Instructions .ROUTE .COMPLEX Qty: 60 0RF Rx Instructions: 1 tab bid for 15 days, then 1 tab daily methocarbamol 750 mg tablet 750 mg PO Q12H PRN (Reason: muscle spasm) 5 Days Qty: 10 0RF insulin glargine [Lantus Solostar U-100 Insulin] 100 unit/mL (3 mL) insulin pen 5 unit SUBCUT Q24H 30 Days Qty: 15 0RF insulin aspart U-100 [Novolog FlexPen U-100 Insulin] 100 unit/mL (3 mL) insulin pen See Rx Instructions .ROUTE .COMPLEX Qty: 15 0RF Rx Instructions: inject, subcut, tid after meals, based on insulin sliding scale Referrals: Trisha Urena MD [Primary Care Provider] - Patient Instructions: Altered Mental Status (ED) Coding Level of Care Code ED [employer] Consult[employer] for [employer]
[2024-03-27] MEDS: morphine 4 mg/mL SDV 1 mL 2 MG IVP (01:18)
[2024-03-27] MEDS: ondansetron 2 mg/ML SDV 2 mL 4 MG IVP (01:19)
[2024-03-27 01:33] LABS: Bilirubin Urine Neg (Negative); Blood Urine 3+ (Negative); Glucose Urine UA Norm (Normal); Ketones Urine Negative (Negative); Nitrate Urine Negative (Negative); Protein Urine 1+ (Negative); Urine Appearance Cloudy (CLEAR); Urine Color Yellow (Yellow); pH Urine 9 (5-7)
[2024-03-27 01:34] LABS: Add Urine Microscopic? YES; Bacteria Urine 2+ /hpf; Leukocyte Esterase Urine 2+ (Negative); RBC Urine 15-25 /hpf (0-2); Squamous Epithelial Cell Urine 0-4 /hpf (0-5); Sulfosalicylic Acid Urine Positive (Negative); Urobilinogen Urine Neg (Negative); WBC Urine 25-40 /hpf (0-5)
[2024-03-27 01:35] LABS: Add Urine Culture? Yes
[2024-03-27] MEDS: haloperidol inj 5 mg/mL INJ 1 mL 3 MG IVP (03:33)
[2024-03-27] MEDS: MEROPENEM 2,000 MG in sodium chloride 0.9% (plus) 50 ML 100 MG IV (06:10)
[2024-03-27] MEDS: piperacillin-tazobactam 3.375 GM in sodium chloride 0.9% (plus) 50 ML IV (06:11)
[2024-03-27] MEDS: sodium chloride 0.9% 1,000 ML 75 ML IV (08:58)
== END 2024-03-27 11:49 | disposition short-term general hospital (02) ==
PROVIDERS: Emergency Provider Emergency Medicine; PCP Family Medicine
DX: N39.0 Urinary tract infection, site not specified (principal); N13.2 Hydronephrosis with renal and ureteral calculous obstruction; Z79.4 Long term (current) use of insulin; Z79.84 Long term (current) use of oral hypoglycemic drugs; Z87.891 Personal history of nicotine dependence; G30.9 Alzheimer's disease, unspecified; F02.80 Dementia in other diseases classified elsewhere, unspecified severity, without behavioral disturbance, psychotic disturbance, mood disturbance, and anxiety; E11.40 Type 2 diabetes mellitus with diabetic neuropathy, unspecified; Z87.442 Personal history of urinary calculi; I10 Essential (primary) hypertension; Z85.46 Personal history of malignant neoplasm of prostate
CPT/HCPCS: 71045; 74176; 80053; 81001; 83605; 83735; 85025; 86140; 87040; 87086; 96365; 96366; 96367; 96375; 99285; J1630; J2185; J2270; J2405; J2543; J7030

== ENCOUNTER 2024-04-01 15:57 | Emergency (ER) | payer OTHER, MEDICARE, SELFPAY ==
[2024-04-01] VITALS (8 sets, daily range): BP systolic 103–153; BP diastolic 78–92; PULSE 71–88; RESP 13–18; O2SAT 95–100
--- NOTE | 2024-04-01 16:00 | CTR_ITS ---
PROCEDURE INFORMATION: Exam: CT Head Without Contrast Exam date and time: 04/01/2024 4:30 PM Age: 74 years old Clinical indication: Altered mental status/memory loss; Confusion or disorientation; Additional info: Encephalopathy, altered mental status TECHNIQUE: Imaging protocol: Computed tomography of the head without contrast. COMPARISON: CT head wo con* [id number] 08/03/2023 9:32 PM RADIATION DOSE METRICS: Total DLP (mGy-cm): 1008.5 FINDINGS: Brain: Mild cerebral atrophy. Mild areas of low-attenuation in the white matter most likely representing small vessel ischemic change. No evidence of mass effect, intracranial hemorrhage or extra-axial collection. No acute infarct. Cerebral ventricles: Unremarkable for age. Paranasal sinuses: No significant pathology. Mastoid air cells: Mastoids are within normal limits. Orbital cavities: Orbits are within normal limits. Nasal cavity: Nasal septal deviation to the left. Left nasal septal spur also noted. Bones: Unremarkable. No acute fracture. Soft tissues: No significant pathology. CT/CT head wo con* [id number] IMPRESSION: No acute pathology or significant interval change.
--- NOTE | 2024-04-01 16:00 | XRR_ITS ---
PROCEDURE INFORMATION: Exam: XR Chest Exam date and time: 04/01/2024 4:21 PM Age: 74 years old Clinical indication: Shortness of breath; Additional info: Weakness TECHNIQUE: Imaging protocol: Radiologic exam of the chest. Views: 1 view. COMPARISON: CR (CHEST, ) 03/26/2024 10:16 PM FINDINGS: Tubes, catheters and devices: Interval removal of the left-sided PICC line. Lungs: No active pulmonary pathology. Pleural spaces: No pleural effusion. Heart/Mediastinum: Cardiomediastinal contours accentuated by AP technique. Bones/joints: No significant pathology. XR/XR chest 1V portable [id number] IMPRESSION: No acute pathology. Interval PICC line removal.
[2024-04-01 16:04] LABS: Glucose Point of Care 168 mg/dL (70-110)
--- NOTE | 2024-04-01 16:08 | ECG_ITS ---
[facility] Test Date: 2024-04-01 Pat Name: Raphael Deal Department: Room: Gender: Male Corsetier: : 1950 Requested By: Ricarda Chavez Order Number: [id number] Nilay MD: Meghan Valles M.D. Measurements Intervals [place] Rate: 83 P: 0 [place]: 0 QRS: 91 QRSD: 155 T: 31 QT: 447 QTc: 526 Interpretive Statements ATRIAL FIBRILLATION RIGHT BUNDLE BRANCH BLOCK [120+ ms QRS DURATION, UPRIGHT V1, 40+ ms S IN I/aVL/V4/V5/V6] Compared to ECG 03/09/2024 04:46:27 Right-axis deviation no longer present Electronically Signed On 04-01-2024 20:44:13 CDT by Meghan Valles M.D. [email or web address]
--- NOTE | 2024-04-01 16:12 | W.ED.AMS ---
HPI - Altered Mental Status General: Chief Complaint: Altered Mental Status Stated Complaint: hypoglycemic, ams Time Seen by Provider: 04/01/24 15:59 History of Present Illness: 74-year-old man with a history of a suprapubic catheter Alzheimer's disease, type 2 diabetes, BPH, hypertension, A-fib, who presents to the emergency room by ambulance from the care home with altered mental status and hypoglycemia. They report a glucose of 41. This was treated at the care home and EMS reports that their blood glucose level was 190s. Confrontation here he is able to answer some questions but remains fairly somnolent at times. Unclear if this is his baseline. Nursing saw him earlier in the week and say that this was similar to his presentation at that time as well. Review of Systems General: Reports: ROS unobtainable due to medical condition and ROS unobtainable due to mental status [facility] PFSH: Medical History Yeast UTI Hematuria due to acute cystitis Mild cognitive impairment with memory loss Bacteriuria Alzheimer disease 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 mellitus History of Doppler ultrasound 08/2021 venous no DVT BLE 08/2021 arterial patent vessels, left posterior tibial may be less than 60% stenosis, left dorsalis pedis not visualized Gait instability SARS-CoV-2 positive positive test 11/17/2021 symptoms weakness, hypoglycemia, altered mental status and low grade fever Anemia Intermittent self-catheterization of bladder due to urinary retention History of sleep study 02/22 limited sleep, no apnea noted but did have nocturnal hypoxemia, recommended to use nocturnal oxygen History of electromyography 01/23 Interpretation: The study provides electrodiagnostic evidence for an axonal sensorimotor polyneuropathy based on small or absent CMAPs and SNAPs with denervation seen distally on EMG. The study is limited for evaluation of lumbar radiculopathy related to the patient's anticoagulated state. History of echocardiogram 05/2021 EF 65% History of cardiovascular stress test 05/2021 normal EKG response, perfusion study without findings of ischemia Diabetes mellitus, type II Chronic anticoagulation Taken off Xarelto secondary to hematuria BPH loc w urin obs/LUTS Obstructive pyelonephritis 09/2021 required ureteral stent placement Left ureteral calculus Diabetic foot ulcer 08/2021 - treated with I&D, antibiotics and wound care clinic management Lumbar stenosis with neurogenic claudication 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 mellitus Cervicalgia of nrgwpsgt-hbdktol-hyvhj region Lumbar stenosis L2/3, L3/4, L4/L5, with radiculopathy right lower extremity H/O prostate cancer Obstructive sleep apnea Refuses CPAP HTN (hypertension) previously on treatment for high blood pressure Atrial fibrillation Surgical History Status post excisional debridement 08/2021 left foot History of laminectomy 03/25 bilateral with partial facetectomies at L2-3, L3-4, L4-[address] Smith Other postprocedural status history of radiofrequency ablation for back pain x 2 Status post laser lithotripsy of ureteral calculus (11/06/21) S/P ureteral stent placement (09/2021) subsequent removal H/O esophagogastroduodenoscopy (10/30/21) 10/2021 pedunculated polyps removed from first portion of duodenum, otherwise normal History of colonoscopy (10/30/21) 11/2021 diverticulosis of sigmoid colon and internal hemorrhoids, sessile polyps removed History of back surgery S/P tonsillectomy S/P appendectomy History of pilonidal cyst Family History Grandmother Heart disease Hypertension Grandfather Hypertension MATERNAL Diabetes Mother No problems noted. Father No problems noted. 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 Skin: Warm, dry. Head: Normocephalic, atraumatic. Neck: Supple, trachea midline. Eye: Extraocular movements are intact. Ears, nose, mouth and throat: mucosa moist. Cardiovascular: Regular, Normal peripheral perfusion. Respiratory: Lungs are clear to auscultation, respirations are non-labored, breath sounds are equal, Symmetrical chest wall expansion. Gastrointestinal: Soft, Nontender, Non distended Musculoskeletal: Normal ROM, no deformity. Neurological: Somnolent but arousable, no focal neurological deficit observed. Psychiatric: Cooperative Course Vital Signs: Vital signs: Vital Signs Pulse Rate 71 04/01/24 18:16 Respiratory Rate 17 04/01/24 18:16 Blood Pressure 139/92 04/01/24 17:42 Pulse Oximetry 98 04/01/24 18:16 MDM - Altered Mental Status Medical Decision Making Medical decision making: Differential diagnosis for the patient with hyperglycemia would include but not be limited to and would be based on the above HPI review of systems and physical exam: DKA. Dehydration. Renal failure. Concern for electrolyte abnormalities. Concern for underlying infection that might result in hyperglycemia. Medical non-compliance Orders placed to evaluate differential diagnosis of the patient with hyperglycemia are based on the above differential, HPI and physical exam. Lab Review: Laboratory results were reviewed and interpreted by myself the emergency room physician. Lab work is fairly unremarkable. No leukocytosis. White count is 8. Hemoglobin stable at 9. Initial glucose is 153. He dropped again 1 more time. Was given some insulin and now has remained stable around 140. Creatinine is 1.7 today which is actually low for him recently. As low as it has been in about a year. Usually hovering in the mid twos. I reviewed the patient's medical record. Reexamination: Patient still a bit somnolent but he awakens and can tell me his name. No increased work of breathing. No focal motor deficits. Assessment and plan: Hypoglycemia Dehydration Urinary tract infection ?Blood sugar now stable after receiving a 250 mill bolus of D10. -Will advised to hold metformin and I am going to go ahead and treat him for urinary tract infection although this is likely just colonization of his suprapubic catheter. ? Normal saline bolus ? IV Rocephin - Discharged home - Discussed findings and plan with patient. Answered any questions. - All laboratory values were reviewed and interpreted personally by myself, the ER physician - All imaging was reviewed and interpreted personally by myself, the ER physician. - Evaluation and treatment of this problem were appropriate in the emergency setting Lab Data 04/01/24 16:06 04/01/24 16:06 Radiology Impressions Chest X-Ray 04/01/24 16:00 IMPRESSION: No acute pathology. Interval PICC line removal. Head CT 04/01/24 16:00 IMPRESSION: No acute pathology or significant interval change. Laboratory Results WBC 8.39 10^3/uL (3.29-11.43) 04/01/24 16:06 RBC 3.77 10^6/uL (3.85-5.65) L 04/01/24 16:06 Hgb 9.10 g/dL (11.27-16.99) L 04/01/24 16:06 Hct 31.2 % (37-53) L 04/01/24 16:06 MCV 82.8 fl (82-101) 04/01/24 16:06 MCH 24.1 pg (27-33) L 04/01/24 16:06 MCHC 29.2 g/dL (30-55) L 04/01/24 16:06 RDW 17.1 % (12.1-15.1) H 04/01/24 16:06 Plt Count 408 10^3/cmm (157-399) H 04/01/24 16:06 MPV 9.6 fL (7.4-10.4) 04/01/24 16:06 Neut % (Auto) 68.0 % 04/01/24 16:06 Lymph % (Auto) 16.7 % 04/01/24 16:06 [place] % (Auto) 8.6 % 04/01/24 16:06 Eos % (Auto) 5.1 % 04/01/24 16:06 Baso % (Auto) 1.2 % 04/01/24 16:06 Neut # (Auto) 5.71 10^3/uL (1.8-7.7) 04/01/24 16:06 Lymph # (Auto) 1.4 10^3/uL (0.8-4.8) 04/01/24 16:06 [place] # (Auto) 0.7 10^3/uL (0.2-0.9) 04/01/24 16:06 Eos # (Auto) 0.4 10^3/uL (0.0-0.8) 04/01/24 16:06 Baso # (Auto) 0.1 10^3/uL (0.0-0.1) 04/01/24 16:06 Nucleated RBC % (auto) 0 % 04/01/24 16:06 Nucleated RBCs # 0.0 /100WBC 04/01/24 16:06 Specimen Type Arterial 04/01/24 16:16 Sample Site Radial, right 04/01/24 16:16 ABG pH 7.43 (7.35-7.45) 04/01/24 16:16 ABG pCO2 41.7 mmHg (35-45) 04/01/24 16:16 ABG pO2 77.8 mmHg (80.0-100.0) L 04/01/24 16:16 ABG PO2/FiO2 Ratio 370 04/01/24 16:16 ABG HCO3 28.0 mmol/L (22-26) H 04/01/24 16:16 ABG O2 Saturation 96.2 04/01/24 16:16 ABG Base Excess 3.4 mmol/L (-2.0-2.0) H 04/01/24 16:16 [place] Test Pos 04/01/24 16:16 A-a O2 Gradient 2.5 mmHg (5-10) L 04/01/24 16:16 Hematocrit 33.9 % (42-52) L 04/01/24 16:16 Hgb O2 Saturation 94.5 % (95-100) L 04/01/24 16:16 Carboxyhemoglobin 1.6 %THgb (0.4-20.1) 04/01/24 16:16 Methemoglobin 0.2 % (0.4-1.5) L 04/01/24 16:16 Total Hemoglobin 11.1 g/dL (14-18) L 04/01/24 16:16 Sodium 141.0 mmol/L (131-143) 04/01/24 16:16 Potassium 3.9 mmol/L (3.5-5.0) 04/01/24 16:16 Glucose 132.0 mg/dL (70-115) H 04/01/24 16:16 Ionized Calcium 1.2 mmol/L (1.1-1.4) 04/01/24 16:16 O2 Delivery Device Room air 04/01/24 16:16 FiO2 21.0 % 04/01/24 16:16 Human Anatomy Teacher ID glc 04/01/24 16:16 Sodium 140 mmol/L (136-145) 04/01/24 16:06 Potassium 4.0 mmol/L (3.5-5.1) 04/01/24 16:06 Chloride 100 mmol/L (98-107) 04/01/24 16:06 Carbon Dioxide 29 mmol/L (22-29) 04/01/24 16:06 Anion Gap 15.0 (5-19) 04/01/24 16:06 BUN 33 mg/dL (8-23) H 04/01/24 16:06 Creatinine 1.7 mg/dL (0.7-1.2) H 04/01/24 16:06 GFR Calculation Not Reportable 04/01/24 16:06 Glucose 153 mg/dL (65-115) H 04/01/24 16:06 POC Glucose 125 mg/dL (70-110) H 04/01/24 19:55 Calculated Osmolality 300 mOsm/kg (285-295) H 04/01/24 16:06 Lactic Acid 1.0 mmol/L (0.5-2.2) 04/01/24 16:06 Calcium 8.6 mg/dL (8.5-10.5) 04/01/24 16:06 Total Bilirubin 0.3 mg/dL (0.15-1.2) 04/01/24 16:06 AST 22 U/L (0-40) 04/01/24 16:06 ALT 17 U/L (0-41) 04/01/24 16:06 Alkaline Phosphatase 128 U/L (40-130) 04/01/24 16:06 C-Reactive Protein 82.2 mg/L (0.0-4.9) H 04/01/24 16:06 Total Protein 7.0 g/dL (6.6-8.7) 04/01/24 16:06 Albumin 3.2 g/dL (3.5-5.2) L 04/01/24 16:06 Globulin 3.8 g/dL (1.3-4.6) 04/01/24 16:06 Urine Color Yellow (Yellow) 04/01/24 16:08 Urine Appearance Clear (CLEAR) 04/01/24 16:08 Urine pH 7 (5-7) 04/01/24 16:08 Ur Specific [place] 1.005 (1.005-1.030) 04/01/24 16:08 Urine Protein 1+ (Negative) H 04/01/24 16:08 Urine Glucose (UA) Norm (Normal) 04/01/24 16:08 Urine Ketones Negative (Negative) 04/01/24 16:08 Urine Blood 2+ (Negative) H 04/01/24 16:08 Urine Nitrate Negative (Negative) 04/01/24 16:08 Urine Bilirubin Neg (Negative) 04/01/24 16:08 Urine Urobilinogen Norm mg/dL (Negative) 04/01/24 16:08 Ur Leukocyte Esterase 2+ (Negative) H 04/01/24 16:08 Urine RBC 10-15 /hpf (0-2) H 04/01/24 16:08 Urine WBC 15-25 /hpf (0-5) H 04/01/24 16:08 Ur Squamous Epith Cells None /hpf (0-5) 04/01/24 16:08 Amorphous Sediment Not Reportable 04/01/24 16:08 Urine Bacteria 1+ /hpf (NONE) H 04/01/24 16:08 All radiology interpretation(s) finalized by discharge Discharge Plan Discharge Patient Disposition: Home Clinical Impression: Hypoglycemia Condition: Stable Prescriptions: New cefdinir 300 mg capsule 300 mg PO BID 10 Days Qty: 20 0RF No Action (DME) Dexcom G7 Sensor Device See Rx Instructions .Route Qty: 3 1RF Rx Instructions: As directed (DME) Dexcom G7 Medical Record Specialist Misc See Rx Instructions .ROUTE Qty: 1 0RF Rx Instructions: As directed metformin 500 mg tablet 500 mg PO DAILY (DME) FreeStyle Jimi 2 [place] Misc See Rx Instructions .Route Qty: 1 0RF Rx Instructions: As directed (DME) FreeStyle Jimi 2 Sensor Kit See Rx Instructions .ROUTE .MEDSUPPLY Qty: 6 1RF Rx Instructions: change every 14 days fluticasone propion-salmeterol [Wixela Inhub] 100-50 mcg/dose Blister With Device 1 inh INHALATION BID albuterol sulfate [ProAir HFA] 90 mcg/actuation HFA aerosol inhaler 2 puff INHALATION Q4H PRN (Reason: Shortness Of Breath) rosuvastatin 40 mg tablet 40 mg PO BEDTIME@19 tamsulosin 0.4 mg capsule 0.4 mg PO BEDTIME@19 gabapentin 400 mg Capsule 400 mg PO TID cyanocobalamin (vitamin B-12) [Vitamin B-12] 1,000 mcg Tablet 1,000 mcg PO DAILY@07 bisacodyl [Dulcolax (bisacodyl)] 10 mg Suppository 10 mg IN DAILY PRN (Reason: Constipation) Rx Instructions: if no bm x 3 days fluticasone propionate 50 mcg/actuation [place],Suspension 2 spray INTRANASAL DAILY@07 Rx Instructions: administer into each nostril finasteride 5 mg Tablet 5 mg PO DAILY@07 coenzyme Q10 30 mg Capsule 30 mg PO DAILY@07 menthol-zinc oxide [Calmoseptine] 0.44-20.6 % ointment See Rx Instructions .ROUTE .COMPLEX Rx Instructions: apply to bilateral buttocks every shift for prevention acetaminophen [Tylenol] 325 mg Tablet 650 mg PO Q6H PRN (Reason: Pain) metoprolol tartrate 100 mg Tablet 100 mg PO BID@07,19 therapeutic multivitamin Tablet 1 tab PO DAILY@07 melatonin 1 mg Tablet 1 mg PO BEDTIME@1930 cholecalciferol (vitamin D3) [Vitamin D3] 25 mcg (1,000 unit) Tablet 25 mcg PO DAILY@07 Xarelto 20 mg Tablet 20 mg PO DAILY@16 Hold Instructions: Resume on 08/17/23. hold for at least 1 week, resume once hgb resonable, ofllo wup with crdilogy Rx Instructions: must administer with evening meal galantamine 4 mg tablet 4 mg PO BID mometasone 50 mcg/actuation [place],Non-Aerosol 1 spray INTRANASAL BID Rx Instructions: administer into each nostril amiodarone [Pacerone] 200 mg Tablet See Rx Instructions .ROUTE .COMPLEX Qty: 60 0RF Rx Instructions: 1 tab bid for 15 days, then 1 tab daily methocarbamol 750 mg tablet 750 mg PO Q12H PRN (Reason: muscle spasm) 5 Days Qty: 10 0RF insulin glargine [Lantus Solostar U-100 Insulin] 100 unit/mL (3 mL) insulin pen 5 unit SUBCUT Q24H 30 Days Qty: 15 0RF insulin aspart U-100 [Novolog FlexPen U-100 Insulin] 100 unit/mL (3 mL) insulin pen See Rx Instructions .ROUTE .COMPLEX Qty: 15 0RF Rx Instructions: inject, subcut, tid after meals, based on insulin sliding scale Discharge Orders: Discharge ED (Routine); Ordered 04/01/24 Ordered By: Ricarda Elias Referrals: Trisha Urena MD [Primary Care Provider] - 4-7 days Discharge Diet: Usual diet Discharge Activity: Increase activity as tolerated Patient Instructions: Hypoglycemia in a Person with Diabetes (DC), Altered Mental Status (ED) Activity Restrictions/Additional Instructions: Hold either the patient's metformin for the next couple of days until his sugars improved. Or until his primary provider reinstate the medication Thank you for choosing [facility] for your healthcare needs today. Please realize this is an emergency room and that we are providing you with a medical screening exam and this may not be complete and all inclusive of all the testing and or work up that you may need to determine your ailment or severity of your illness. You have been screened and evaluated and felt safe for discharge. Health conditions do change or evolve sometimes and as such it is important that you follow up with your Primary Doctor to be re checked, 3-5 days is a general good time frame for follow up. You are always welcome to return to the ED for re assessment if your symptoms are worsening or you have new concerns Coding Level of Care Code ED Bell Clerk for Say Muñoz
[2024-04-01 16:26] LABS: Basophils # 0.1 10^3/uL (0.0-0.1); Basophils % 1.2 %; Eosinophils # 0.4 10^3/uL (0.0-0.8); Eosinophils % 5.1 %; Hematocrit 31.2 % (37-53); Lymphocytes # 1.4 10^3/uL (0.8-4.8); Lymphocytes % 16.7 %; Mean Corpuscular HGB Conc 29.2 g/dL (30-55); Mean Corpuscular Hemoglobin 24.1 pg (27-33); Mean Corpuscular Volume 82.8 fl (82-101); Mean Platelet Volume 9.6 fL (7.4-10.4); Monocytes # 0.7 10^3/uL (0.2-0.9); Monocytes % 8.6 %; Neutrophils # 5.71 10^3/uL (1.8-7.7); Nucleated Red Blood Cells % 0 %; Platelet Count 408 10^3/cmm (157-399); Red Blood Count 3.77 10^6/uL (3.85-5.65); Red Cell Distribution Width 17.1 % (12.1-15.1); White Blood Count 8.39 10^3/uL (3.29-11.43)
[2024-04-01 16:28] LABS: ABG PCO2 41.7 mmHg (35-45); ABG PH Result 7.43 (7.35-7.45); Alveolar-Arterial Oxygen Gradi 2.5 mmHg (5-10); Arterial Blood Gas Hematocrit 33.9 % (42-52); Base Excess ABG 3.4 mmol/L (-2.0-2.0); Blood Gas Allen Test Pos; Blood Gas Operator Identificat glc; Blood Gas Sample Site Radial, right; Blood Gas Sample Type Arterial; Carboxyhemoglobin 1.6 %THgb (0.4-20.1); HGB O2 Sat 94.5 % (95-100); Ionized Calcium Level - ABG 1.2 mmol/L (1.1-1.4); Methemoglobin 0.2 % (0.4-1.5); Oxygen Device ROOM AIR; Oxygen Saturation ABG 96.2; PO2 ABG 77.8 mmHg (80.0-100.0); PO2 FiO2 Ratio Arterial Blood 370; Potassium Level - ABG 3.9 mmol/L (3.5-5.0); Total Hemoglobin 11.1 g/dL (14-18)
[2024-04-01 16:53] LABS: Bilirubin Urine Neg (Negative); Blood Urine 2+ (Negative); Glucose Urine UA Norm (Normal); Ketones Urine Negative (Negative); Leukocyte Esterase Urine 2+ (Negative); Nitrate Urine Negative (Negative); Protein Urine 1+ (Negative); Specific Gravity, Urine 1.005 (1.005-1.030); Urine Appearance Clear (CLEAR); Urine Color Yellow (Yellow); Urobilinogen Urine Norm (Negative); pH Urine 7 (5-7)
[2024-04-01 16:54] LABS: Alanine Aminotransferase 17 U/L (0-41); Albumin Level 3.2 g/dL (3.5-5.2); Alkaline Phosphatase 128 U/L (40-130); Aspartate Amino Transferase 22 U/L (0-40); Blood Urea Nitrogen 33 mg/dL (8-23); C Reactive Protein 82.2 mg/L (0.0-4.9); Calcium 8.6 mg/dL (8.5-10.5); Carbon Dioxide 29 mmol/L (22-29); Chloride 100 mmol/L (98-107); Globulin 3.8 g/dL (1.3-4.6); Glucose 153 mg/dL (65-115); Osmolality Calculated 300 mOsm/kg (285-295); Sodium 140 mmol/L (136-145); Total Bilirubin 0.3 mg/dL (0.15-1.2)
[2024-04-01 16:55] LABS: Add Urine Culture? Yes; Bacteria Urine 1+ /hpf; WBC Urine 15-25 /hpf (0-5)
[2024-04-01 16:57] LABS: Glucose Point of Care 104 mg/dL (70-110)
--- NOTE | 2024-04-01 16:57 | PC.NURSE ---
Glucose via Fingerstick 104, decreased 64 points in approx [address] Elias notified.
[2024-04-01] MEDS: dextrose 10% 250 ML 1000 ML IV (17:18)
--- NOTE | 2024-04-01 18:00 | PC.NURSE ---
Glucose via Fingerstick 148 @1800
[2024-04-01 18:02] LABS: Glucose Point of Care 148 mg/dL (70-110)
--- NOTE | 2024-04-01 18:44 | PC.NURSE ---
Glucose via Fingerstick 138 @1840
[2024-04-01 18:45] LABS: Glucose Point of Care 138 mg/dL (70-110)
[2024-04-01] MEDS: sodium chloride 0.9% 1,000 ML 999 ML IV (19:46)
[2024-04-01] MEDS: cefTRIAXone 1,000 MG in sodium chloride 0.9% (plus) 50 ML 100 MG IV (19:51)
[2024-04-01 20:02] LABS: Glucose Point of Care 125 mg/dL (70-110)
== END 2024-04-01 22:33 | disposition home or self-care (01) ==
PROVIDERS: Emergency Provider Emergency Medicine; PCP Family Medicine
DX: E11.649 Type 2 diabetes mellitus with hypoglycemia without coma (principal); G30.9 Alzheimer's disease, unspecified; F02.80 Dementia in other diseases classified elsewhere, unspecified severity, without behavioral disturbance, psychotic disturbance, mood disturbance, and anxiety; Z85.46 Personal history of malignant neoplasm of prostate; I10 Essential (primary) hypertension; E11.40 Type 2 diabetes mellitus with diabetic neuropathy, unspecified; Z79.84 Long term (current) use of oral hypoglycemic drugs; Z79.4 Long term (current) use of insulin; Z87.891 Personal history of nicotine dependence
CPT/HCPCS: 36416; 36600; 70450; 71045; 80051; 80053; 81001; 82330; 82805; 82962; 83605; 85025; 86140; 87040; 87086; 93005; 96361; 96365; 99285; J0696; J7030; J7799

== ENCOUNTER → 2024-04-20 11:41 | Outpatient (BNVA) | payer OTHER, SELFPAY | PROVIDERS: PCP Family Medicine; Visit Provider Internal Medicine | DX: I10 Essential (primary) hypertension (principal); I48.91 Unspecified atrial fibrillation | CPT/HCPCS: 99214 ==

== ENCOUNTER 2024-04-27 10:03 | Inpatient (IN) | payer OTHER, SELFPAY ==
[2024-04-27] VITALS (12 sets, daily range): BP systolic 90–122; BP diastolic 50–77; PULSE 70–84; RESP 15–21; TEMP 36.3–36.6; O2SAT 95–99; BMI 32.5
--- NOTE | 2024-04-27 10:22 | CT_ITS ---
WS: [id number] CT ABDOMEN AND PELVIS WITH CONTRAST HISTORY: flank pain TECHNIQUE: Imaging performed of the abdomen and pelvis with IV contrast. Single phase imaging of the abdomen. Coronal and sagittal reformats are submitted. All CT scans at [facility] use at [address] one of these dose optimization techniques: automated exposure control; mA and/or kV adjustment per patient size (includes targeted exams where dose is matched to clinical indication); or iterative re construction. IV CONTRAST: Omnipaque 350; 100 mL IV. Oral contrast: No DLP: 824.10 mGy.cm COMPARISON: 03/26/2024 Lower thorax: Improved aeration at the lung bases. No pneumonia. Heart is normal size. No hiatal iggy ia. Liver/biliary system: Normal size with no intrahepatic dilatation. Gallbladder: Well-distended gallbladder. There is slight increased attenuation within the gallbladder which may be a small amount of sludge. No adjacent inflammation. Pancreas: Normal size pancreas and pancreatic duct. No adjacent inflammation. Spleen: Normal size spleen. No mass or infarct. Adrenal glands: Normal. Right kidney: No hydronephrosis. RIGHT percutaneous nephrostomy tube has been inserted since the prio r study. There is also a RIGHT ureteral stent. Distal stent is coiled in the renal pelvis. Mild perin ephric stranding. Nonobstructing renal calcifications. Left kidney: Percutaneous nephrostomy tube with pigtail coiled in the renal pelvis. No obstruction. V brett slight dilatation of the distal ureter. Mild perinephric stranding. Aorta: Mild atherosclerosis with no aneurysm. Lymphadenopathy: None. Free fluid: None. GI tract: Nondistended stomach. No small bowel obstruction. Moderate diffuse constipation. Moderate d iverticular burden in the distal colon. No acute diverticulitis. Abdominal wall: Unremarkable abdominal wall. No hernia. Pelvis: Nondistended urinary bladder. Distal RIGHT pigtail catheter is coiled in the bladder. Bones: Advanced degenerative changes throughout the lumbar spine and lower thoracic spine. Mild loss of vertebral body endplates at L3 and L4 similar to the most recent study. Slow progression of lytic changes and destruction involving the endplates of L3 and L4. There is significant muscle atrophy. Psoas muscles are atrophied, RIGHT greater than LEFT. CT/CT abdomen pelvis w con* [id number] IMPRESSION: 1. Status post bilateral percutaneous nephrostomy tubes with no residual hydro nephrosis. 2. RIGHT ureteral pigtail stent is also noted in good position. 3. Mild perinephric stranding. 4. Improved aeration at the lung bases. 5. Diffuse constipation. 6. Moderate diverticular disease without acute diverticulitis. 7. Mild progressive loss of the the normal endplates at L3 and L4. This could represent an indolent osteomyelitis. Increasing lucency and lytic changes. Mild paravertebral soft tissue stranding. MRI lumbar spine with and without contras t would provide additional information concerning acute discitis/osteomyelitis. Notified Luis Enrique Nolan MD at 04/27/2024 12:20 PM.
--- NOTE | 2024-04-27 10:41 | W.ED.BACK ---
HPI - Back Pain/Injury General: Chief Complaint: Back Pain/Injury Stated Complaint: back pain Time Seen by Provider: 04/27/24 10:04 Source: patient Mode of arrival: ambulatory Limitations: no limitations History of Present Illness: 74-year-old male has had a history of kidney stones 1 month ago he had bilateral nephrostomy tubes placed at [place] he has a urology appointment tomorrow [place]. He states he had back pain for months states it has been worse since he had his nephrostomy tubes placed. He states that he had generalized weakness for months as well and is he states he is practically bedbound at the [facility]. He denies any fevers he had good urine output out of the nephrostomies. He had no bowel incontinence Associated symptoms: Deny abdominal pain, chills, fever(s), nausea or vomiting Review of Systems Const: Denies: fever(s), chills, body aches or change in appetite ENMT: Denies: throat pain or dental pain Card: Denies: chest pain Resp: Denies: dyspnea GI: Denies: abdominal pain, nausea, vomiting or diarrhea Musc: Reports: back pain; Denies: neck pain Skin/Breast: Denies: rash Neuro: Denies: headache(s) PFSH ED PFSH: Medical History Yeast UTI Hematuria due to acute cystitis Mild cognitive impairment with memory loss Bacteriuria Alzheimer disease 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 mellitus History of Doppler ultrasound 08/2021 venous no DVT BLE 08/2021 arterial patent vessels, left posterior tibial may be less than 60% stenosis, left dorsalis pedis not visualized Gait instability SARS-CoV-2 positive positive test 11/17/2021 symptoms weakness, hypoglycemia, altered mental status and low grade fever Anemia Intermittent self-catheterization of bladder due to urinary retention History of sleep study 02/22 limited sleep, no apnea noted but did have nocturnal hypoxemia, recommended to use nocturnal oxygen History of electromyography 01/23 Interpretation: The study provides electrodiagnostic evidence for an axonal sensorimotor polyneuropathy based on small or absent CMAPs and SNAPs with denervation seen distally on EMG. The study is limited for evaluation of lumbar radiculopathy related to the patient's anticoagulated state. History of echocardiogram 05/2021 EF 65% History of cardiovascular stress test 05/2021 normal EKG response, perfusion study without findings of ischemia Diabetes mellitus, type II Chronic anticoagulation Taken off Xarelto secondary to hematuria BPH loc w urin obs/LUTS Obstructive pyelonephritis 09/2021 required ureteral stent placement Left ureteral calculus Diabetic foot ulcer 08/2021 - treated with I&D, antibiotics and wound care clinic management Lumbar stenosis with neurogenic claudication 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 mellitus Cervicalgia of ighoxebb-gybtqcd-lxoki region Lumbar stenosis L2/3, L3/4, L4/L5, with radiculopathy right lower extremity H/O prostate cancer Obstructive sleep apnea Refuses CPAP HTN (hypertension) previously on treatment for high blood pressure Atrial fibrillation Surgical History Status post excisional debridement 08/2021 left foot History of laminectomy 03/25 bilateral with partial facetectomies at L2-3, L3-4, L4-[address] Smith Other postprocedural status history of radiofrequency ablation for back pain x 2 Status post laser lithotripsy of ureteral calculus (11/06/21) S/P ureteral stent placement (09/2021) subsequent removal H/O esophagogastroduodenoscopy (10/30/21) 10/2021 pedunculated polyps removed from first portion of duodenum, otherwise normal History of colonoscopy (10/30/21) 11/2021 diverticulosis of sigmoid colon and internal hemorrhoids, sessile polyps removed History of back surgery S/P tonsillectomy S/P appendectomy History of pilonidal cyst Family History Grandmother Heart disease Hypertension Grandfather Hypertension MATERNAL Diabetes Mother No problems noted. Father No problems noted. 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 Physical Exam Const: COMMON NORMALS: no acute distress, patient oriented x3 and healthy appearing HENMT: COMMON NORMALS: normocephalic and atraumatic HEAD & SCALP: normocephalic and atraumatic Neck/C-Spine: COMMON NORMALS: full ROM and supple Chest: COMMONS NORMALS: normal inspection of the chest Resp: COMMON NORMALS: normal respiratory effort, No retractions, No use of accessory muscles and clear to auscultation bilaterally AUSCULTATION: clear to auscultation bilaterally Cardio: COMMON NORMALS: regular rate, regular rhythm and No murmurs present (Cardio) RATE: regular rate RHYTHM: regular rhythm GI: COMMON NORMALS: Normal to inspection, nondistended, normoactive bowel sounds present, Soft to palpation, non-tender and no masses PALPATION: Yes Soft to palpation Extremity: COMMON NORMALS: normal to inspection and full ROM Neuro: COMMON NORMALS: patient oriented x3, moves all extremities and no focal motor deficits Psych: COMMON NORMALS: mental status grossly normal, Normal thought process present and cooperative THOUGHT PROCESS: Normal thought process present Skin: COMMON NORMALS: no rashes or lesions noted and no wounds GENERAL SKIN EXAM: no rashes or lesions noted Course Vital Signs: Vital signs: Vital Signs Temperature 97.7 F 04/27/24 10:05 Pulse Rate 76 04/27/24 15:11 Respiratory Rate 15 04/27/24 10:59 Blood Pressure 109/62 04/27/24 12:30 Pulse Oximetry 99 04/27/24 15:11 Oxygen Delivery Me thod Room Air 04/27/24 15:11 MDM - Back Pain/Injury Medical Decision Making Patient presents with back pain CT MRI show discitis with an osteomyelitis I have spoke to our spine surgeon Dr. Viramontes who is consulted spoke to the hospitalist and will admit at this time patient started on IV antibiotics and have blood cultures. Medical Records I reviewed the patient's medical records. Labs I reviewed the patient's lab results. 04/27/24 10:48 04/27/24 10:48 Radiology Impressions Abdomen/Pelvis CT 04/27/24 10:22 IMPRESSION: 1. Status post bilateral percutaneous nephrostomy tubes with no residual hydronephrosis. 2. RIGHT ureteral pigtail stent is also noted in good position. 3. Mild perinephric stranding. 4. Improved aeration at the lung bases. 5. Diffuse constipation. 6. Moderate diverticular disease without acute diverticulitis. 7. Mild progressive loss of the the normal endplates at L3 and L4. This could represent an indolent osteomyelitis. Increasing lucency and lytic changes. Mild paravertebral soft tissue stranding. MRI lumbar spine with and without contrast would provide additional information concerning acute discitis/osteomyelitis. Notified Luis Enrique Nolan MD at 04/27/2024 12:20 PM. Lumbar Spine MRI 04/27/24 12:16 IMPRESSION: 1. Interval development of discitis centered at the L3-4 level with endplate osteomyelitis described above. 2. Diffuse paravertebral soft tissue enhancement worse at the L3-4 levels. 3. Small amount of thin ventral epidural enhancement and thickening likely due to developing phlegmon/abscess at the L3-4 levels. No high-grade central canal stenosis. 4. Chronic disc space narrowing L2-3 is unchanged. Notified Luis Enrique Nolan MD at 04/27/2024 2:27 PM. Laboratory Results WBC 14.84 10^3/uL (3.29-11.43) H 04/27/24 10:48 RBC 4.19 10^6/uL (3.85-5.65) 04/27/24 10:48 Hgb 10.10 g/dL (11.27-16.99) L 04/27/24 10:48 Hct 33.6 % (37-53) L 04/27/24 10:48 MCV 80.2 fl (82-101) L 04/27/24 10:48 MCH 24.1 pg (27-33) L 04/27/24 10:48 MCHC 30.1 g/dL (30-55) 04/27/24 10:48 RDW 17.2 % (12.1-15.1) H 04/27/24 10:48 Plt Count 553 10^3/cmm (157-399) H 04/27/24 10:48 MPV 9.5 fL (7.4-10.4) 04/27/24 10:48 Neut % (Auto) 70.3 % 04/27/24 10:48 Lymph % (Auto) 17.3 % 04/27/24 10:48 [place] % (Auto) 7.1 % 04/27/24 10:48 Eos % (Auto) 4.2 % 04/27/24 10:48 Baso % (Auto) 0.6 % 04/27/24 10:48 Neut # (Auto) 10.43 10^3/uL (1.8-7.7) H 04/27/24 10:48 Lymph # (Auto) 2.6 10^3/uL (0.8-4.8) 04/27/24 10:48 [place] # (Auto) 1.1 10^3/uL (0.2-0.9) H 04/27/24 10:48 Eos # (Auto) 0.6 10^3/uL (0.0-0.8) 04/27/24 10:48 Baso # (Auto) 0.1 10^3/uL (0.0-0.1) 04/27/24 10:48 Nucleated RBC % (auto) 0 % 04/27/24 10:48 Nucleated RBCs # 0.0 /100WBC 04/27/24 10:48 ESR 42 mm/hr (0-10) H 04/27/24 10:48 Sodium 138 mmol/L (136-145) 04/27/24 10:48 Potassium 4.4 mmol/L (3.5-5.1) 04/27/24 10:48 Chloride 103 mmol/L (98-107) 04/27/24 10:48 Carbon Dioxide 25 mmol/L (22-29) 04/27/24 10:48 Anion Gap 14.4 (5-19) 04/27/24 10:48 BUN 21 mg/dL (8-23) 04/27/24 10:48 Creatinine 1.6 mg/dL (0.7-1.2) H 04/27/24 10:48 GFR Calculation Not Reportable 04/27/24 10:48 Glucose 135 mg/dL (65-115) H 04/27/24 10:48 Calculated Osmolality 291 mOsm/kg (285-295) 04/27/24 10:48 Calcium 9.1 mg/dL (8.5-10.5) 04/27/24 10:48 Total Bilirubin 0.4 mg/dL (0.15-1.2) 04/27/24 10:48 AST 20 U/L (0-40) 04/27/24 10:48 ALT 30 U/L (0-41) 04/27/24 10:48 Alkaline Phosphatase 163 U/L (40-130) H 04/27/24 10:48 C-Reactive Protein 86.9 mg/L (0.0-4.9) H 04/27/24 10:48 Total Protein 7.4 g/dL (6.6-8.7) 04/27/24 10:48 Albumin 3.2 g/dL (3.5-5.2) L 04/27/24 10:48 Globulin 4.2 g/dL (1.3-4.6) 04/27/24 10:48 Lipase 56 U/L (13-60) 04/27/24 10:48 All radiology interpretation(s) finalized by discharge Discharge Plan Discharge Patient Disposition: Admitted As Inpatient Clinical Impression: Discitis of lumbar region, Acute osteomyelitis of lumbar spine, Back pain Condition: Stable Prescriptions: No Action (DME) Dexcom G7 Sensor Device See Rx Instructions .Route Qty: 3 1RF Rx Instructions: As directed (DME) Dexcom G7 Assisted Living Assistant Misc See Rx Instructions .ROUTE Qty: 1 0RF Rx Instructions: As directed (DME) FreeStyle Jimi 2 Rebuck Misc See Rx Instructions .Route Qty: 1 0RF Rx Instructions: As directed (DME) FreeStyle Jimi 2 Sensor Kit See Rx Instructions .ROUTE .MEDSUPPLY Qty: 6 1RF Rx Instructions: change every 14 days fluticasone propion-salmeterol [Wixela Inhub] 100-50 mcg/dose Blister With Device 1 inh INHALATION BID rosuvastatin 40 mg tablet 40 mg PO BEDTIME@19 tamsulosin 0.4 mg capsule 0.4 mg PO BEDTIME@19 gabapentin 400 mg Capsule 400 mg PO TID bisacodyl [Dulcolax (bisacodyl)] 10 mg Suppository 10 mg NM DAILY PRN (Reason: Constipation) Rx Instructions: if no bm x 3 days finasteride 5 mg Tablet 5 mg PO DAILY@07 menthol-zinc oxide [Calmoseptine] 0.44-20.6 % ointment See Rx Instructions .ROUTE .COMPLEX Rx Instructions: apply to bilateral buttocks every shift for prevention acetaminophen [Tylenol] 325 mg Tablet 650 mg PO Q6H PRN (Reason: Pain) therapeutic multivitamin Tablet 1 tab PO DAILY@07 hydrocodone-acetaminophen 5-325 mg tablet 1 tab PO Q6H PRN (Reason: Pain) buspirone 10 mg tablet 10 mg PO BID PRN (Reason: Anxiety) metoprolol tartrate 50 mg Tablet 100 mg PO BID Colace 100 mg Capsule 100 mg PO BID furosemide 20 mg tablet 20 mg PO DAILY albuterol sulfate 90 mcg/actuation HFA aerosol inhaler 2 puff INHALATION Q4H PRN (Reason: Dyspnea) potassium chloride 10 mEq tablet extended release 10 meq PO DAILY tramadol 50 mg tablet 50 mg PO Q6H PRN (Reason: Pain) pantoprazole 40 mg tablet,delayed release (DR/EC) 40 mg PO BID Pacerone 200 mg tablet 200 mg PO DAILY Lantus Solostar U-100 Insulin 100 unit/mL (3 mL) insulin pen 60 unit SUBCUT Q24H galantamine 4 mg tablet 4 mg PO BID mometasone 50 mcg/actuation [place],Non-Aerosol 1 spray INTRANASAL BID Rx Instructions: administer into each nostril insulin aspart U-100 [Novolog FlexPen U-100 Insulin] 100 unit/mL (3 mL) insulin pen See Rx Instructions .ROUTE .COMPLEX Qty: 15 0RF Rx Instructions: , INJECT 24 UNITS BY SUBCUTANEOUS INJECTION BEFORE MEALS PLUS SLIDING SCALE: BS 141-180=0 UNITS, 181-220=2 UNITS, 221-260=4 UNITS, 261-300=6 UNITS, 301-350=8 UNITS, 351-400=10 UNITS, 401-450=12 UNITS. IF BS GREATER THAN 450 GIVE 14 UNITS, IF BS GREATER THAN 500 CALL MD AND SEND TO ER IF LOWER THAN 60 AT ANY TIME. Referrals: Trisha Urena MD [Primary Care Provider] - Coding Level of Care Code ED Psychological Operations Specialist for Say Muñoz
[2024-04-27] MEDS: ondansetron 2 mg/ML SDV 2 mL 4 MG IVP (10:59)
[2024-04-27] MEDS: morphine 4 mg/mL SDV 1 mL IVP (10:59)
[2024-04-27] MEDS: sodium chloride 0.9% 500 ML 999 ML IV (10:59)
[2024-04-27 11:12] LABS: Basophils # 0.1 10^3/uL (0.0-0.1); Basophils % 0.6 %; Eosinophils # 0.6 10^3/uL (0.0-0.8); Eosinophils % 4.2 %; Hematocrit 33.6 % (37-53); Lymphocytes # 2.6 10^3/uL (0.8-4.8); Lymphocytes % 17.3 %; Mean Corpuscular HGB Conc 30.1 g/dL (30-55); Mean Corpuscular Hemoglobin 24.1 pg (27-33); Mean Corpuscular Volume 80.2 fl (82-101); Mean Platelet Volume 9.5 fL (7.4-10.4); Monocytes # 1.1 10^3/uL (0.2-0.9); Monocytes % 7.1 %; Neutrophils # 10.43 10^3/uL (1.8-7.7); Neutrophils % 70.3 %; Nucleated Red Blood Cells % 0 %; Platelet Count 553 10^3/cmm (157-399); Red Blood Count 4.19 10^6/uL (3.85-5.65); Red Cell Distribution Width 17.2 % (12.1-15.1); White Blood Count 14.84 10^3/uL (3.29-11.43)
[2024-04-27 11:21] LABS: Alanine Aminotransferase 30 U/L (0-41); Albumin Level 3.2 g/dL (3.5-5.2); Alkaline Phosphatase 163 U/L (40-130); Anion Gap 14.4 (5-19); Aspartate Amino Transferase 20 U/L (0-40); Blood Urea Nitrogen 21 mg/dL (8-23); Calcium 9.1 mg/dL (8.5-10.5); Carbon Dioxide 25 mmol/L (22-29); Chloride 103 mmol/L (98-107); Globulin 4.2 g/dL (1.3-4.6); Glucose 135 mg/dL (65-115); Lipase 56 U/L (13-60); Osmolality Calculated 291 mOsm/kg (285-295); Potassium 4.4 mmol/L (3.5-5.1); Sodium 138 mmol/L (136-145); Total Bilirubin 0.4 mg/dL (0.15-1.2); Total Protein 7.4 g/dL (6.6-8.7)
[2024-04-27 11:22] LABS: Creatinine Clr Calc Pharmacy 50.8404
[2024-04-27] MEDS: iohexol 350 mg/mL 500 mL Btl (per mL) IV (11:43)
--- NOTE | 2024-04-27 12:16 | MR_ITS ---
WS: [id number] MRI LUMBAR SPINE WITH CONTRAST TECHNIQUE: Sagittal T1, T2 and STIR imaging. Axial T1 and T2 imaging. Post gadolinium imaging was obt ained. CLINICAL INFORMATION: back pain COMPARISON: CT 12/06/2021 and MRI 05/10/2021 FINDINGS: Interval development of discitis at the L3-4 level with destructive endplate type changes and phlegmo n in the displace. This is new since the prior MRI and CT. Endplate edema with enhancement compatible with osteomyelitis at the L3-4 abutting endplates. Associated paravertebral soft tissue enhancement extending into the psoas LEFT greater than RIGHT. No drainable psoas abscess visualized. Small amount of epidural phlegmon or developing abscess at the L3 and L4 levels with prominent ventra l epidural enhancement. Epidural enhancement extends up to the L2 level although no signal abnormalit y in the L2-3 interspace. Chronic space narrowing L2-3 is unchanged in appearance. Chronic appearing hemilaminectomies at RIGHT L3-4 and L4-5. L1-L2: Mild facet arthropathy. Spinal canal and foramen are patent. L2-L3: Slight retrolisthesis. Chronic disc space narrowing. Mild central canal stenosis. Moderate fac et arthropathy. Mild RIGHT foraminal narrowing. L3-L4: Evidence of discitis with endplate osteomyelitis at this level. Prior RIGHT hemilaminectomy. M oderate facet arthropathy. Mild central canal stenosis. Paravertebral soft tissue enhancement. Mild b ilateral foraminal narrowing. L4-L5: Slight anterolisthesis. Mild disc bulging with osteophytic ridging. Moderate facet arthropathy . Foramen are patent. L5-S1: Mild facet arthropathy. Spinal canal and foramina are patent. Visualized pelvic bony structures: Normal. Paravertebral soft tissues: Normal. MR/MR lumbar spine wo/w con [id number] IMPRESSION: 1. Interval development of discitis centered at the L3-4 level with endplate o steomyelitis described above. 2. Diffuse paravertebral soft tissue enhancement worse at the L3-4 levels. 3. Small amount of thin ventral epidural enhancement and thickening likely due to developing phlegmon/abscess at the L3-4 levels. No high-grade central canal stenosis. 4. Chronic disc space narrowing L2-3 is unchanged. Notified Luis Enrique Nolan MD at 04/27/2024 2:27 PM.
[2024-04-27 12:30] LABS: Erythrocyte Sedimentation Rate 42 mm/hr (0-10)
[2024-04-27 12:44] LABS: C Reactive Protein 86.9 mg/L (0.0-4.9)
[2024-04-27] MEDS: gadobenate dimeglumine 20 mL vial IV (13:29)
[2024-04-27] MEDS: piperacillin-tazobactam 3.375 GM in sodium chloride 0.9% (plus) 50 ML IV (15:05)
--- NOTE | 2024-04-27 15:13 | P.HP_ITS ---
Providers/Chief Complaint 2 Primary Care Provider: Trisha Urena MD Chief Complaint: back pain History of Present Illness Raphael Deal is a 74 year old male with a past medical history of type 2 diabetes mellitus, history of recurrent UTIs, history of bilateral nephrostomy tubes currently in place, managed by urology in [place], chronic pain, systolic CHF, BPH, atrial fibrillation, on Xarelto, which currently is on hold due to his nephrostomy tube placement? Who presents [facility] due to acute low back pain. Patient had nephrostomy tubes placed at [facility] about [facility], he was reporting increased back pain, after his nephrostomy tube placement, does report bilateral lower extremity weakness, he has not been able to walk for the last month he tells me, no urinary incontinence, no bowel incontinence, no saddle or perianal anesthesia, no fevers, no chills, no falls, no injuries Review of Systems 2 Const: Reports: fatigue and malaise Card: Denies: chest pain Resp: Denies: dyspnea GI: Denies: abdominal pain : Denies: flank pain Medications/Allergies Home Medications Medication Instructions Recorded Confirmed Last Taken Type fluticasone 100 mcg-salmeterol 50 1 inh inhalation BID 10/03/21 04/27/24 04/27/24 History mcg/dose blistr powdr for inhalation (Wixela Inhub) rosuvastatin 40 mg tablet 40 mg PO BEDTIME@12/04/21 04/27/24 04/26/24 History tamsulosin 0.4 mg capsule 0.4 mg PO BEDTIME@12/04/21 04/27/24 04/26/24 History galantamine 4 mg tablet 4 mg PO BID 05/20/23 04/27/24 04/27/24 History acetaminophen 325 mg tablet 650 mg PO Q6H PRN Pain 07/02/23 04/27/24 04/20/24 History (Tylenol) bisacodyl 10 mg rectal suppository 10 mg [place] DAILY PRN Constipation 07/02/23 04/27/24 03/31/24 History (Dulcolax (bisacodyl)) finasteride 5 mg tablet 5 mg PO DAILY@07/02/23 04/27/24 04/27/24 History gabapentin 400 mg capsule 400 mg PO TID 07/02/23 04/27/24 04/27/24 History menthol 0.44 %-zinc oxide 20.6 % See Rx Instructions .Route .COMPLEX 07/02/23 04/27/24 04/26/24 History topical ointment (Calmoseptine) therapeutic multivitamin 1 tab PO DAILY@07 07/02/23 04/27/24 04/27/24 History mometasone 50 mcg/actuation nasal 1 spray intranasal BID 08/04/23 04/27/24 04/27/24 History spray insulin aspart U-100 100 unit/mL See Rx Instructions .Route 08/07/23 04/27/24 04/26/24 Rx (3 mL) subcutaneous pen (Novolog .COMPLEX #15 mL FlexPen U-100 Insulin aspart) flash glucose scanning reader #1 ea 08/25/23 04/27/24 Unknown Rx (FreeStyle Jimi 2 [place]) FreeStyle Jimi 2 Sensor (flash #6 ea 12/11/23 04/27/24 Unknown Rx glucose sensor) blood-glucose meter,continuous #1 ea 02/08/24 04/27/24 Unknown Rx (Dexcom G7 Big Data Hadoop Developer) blood-glucose sensor (Dexcom G7 #3 ea 02/08/24 04/27/24 Unknown Rx Sensor device) albuterol sulfate 90 mcg/actuation 2 puff inhalation Q4H PRN Dyspnea 04/27/24 04/27/24 06/22/23 History aerosol inhaler amiodarone 200 mg tablet (Pacerone) 200 mg PO DAILY 04/27/24 04/27/24 04/27/24 History buspirone 10 mg tablet 10 mg PO BID PRN Anxiety 04/27/24 04/27/24 04/26/24 History docusate sodium 100 mg capsule 100 mg PO BID 04/27/24 04/27/24 04/27/24 History (Colace) furosemide 20 mg tablet 20 mg PO DAILY 04/27/24 04/27/24 04/27/24 History hydrocodone 5 mg-acetaminophen 325 1 tab PO Q6H PRN Pain 04/27/24 04/27/24 04/26/24 History mg tablet insulin glargine 100 unit/mL (3 60 unit SUBCUT Q24H 04/27/24 04/27/24 04/26/24 History mL) subcutaneous pen (Lantus Solostar U-100 Insulin) metoprolol tartrate 50 mg tablet 100 mg PO BID 04/27/24 04/27/24 04/27/24 History pantoprazole 40 mg tablet,delayed 40 mg PO BID 04/27/24 04/27/24 04/27/24 History release potassium chloride 10 mEq 10 meq PO DAILY 04/27/24 04/27/24 04/27/24 History tablet,extended release tramadol 50 mg tablet 50 mg PO Q6H PRN Pain 04/27/24 04/27/24 04/26/24 History Allergies Allergy/AdvReac Type Severity Reaction Status Date / Time pollen extracts Allergy Unknown Verified 04/27/24 10:20 PFSH Acute 2 PFSH: Medical History Yeast UTI Hematuria due to acute cystitis Mild cognitive impairment with memory loss Bacteriuria Alzheimer disease 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 mellitus History of Doppler ultrasound 08/2021 venous no DVT BLE 08/2021 arterial patent vessels, left posterior tibial may be less than 60% stenosis, left dorsalis pedis not visualized Gait instability SARS-CoV-2 positive positive test 11/17/2021 symptoms weakness, hypoglycemia, altered mental status and low grade fever Anemia Intermittent self-catheterization of bladder due to urinary retention History of sleep study 02/22 limited sleep, no apnea noted but did have nocturnal hypoxemia, recommended to use nocturnal oxygen History of electromyography 01/23 Interpretation: The study provides electrodiagnostic evidence for an axonal sensorimotor polyneuropathy based on small or absent CMAPs and SNAPs with denervation seen distally on EMG. The study is limited for evaluation of lumbar radiculopathy related to the patient's anticoagulated state. History of echocardiogram 05/2021 EF 65% History of cardiovascular stress test 05/2021 normal EKG response, perfusion study without findings of ischemia Diabetes mellitus, type II Chronic anticoagulation Taken off Xarelto secondary to hematuria BPH loc w urin obs/LUTS Obstructive pyelonephritis 09/2021 required ureteral stent placement Left ureteral calculus Diabetic foot ulcer 08/2021 - treated with I&D, antibiotics and wound care clinic management Lumbar stenosis with neurogenic claudication 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 mellitus Cervicalgia of qmlwhstb-lenqtek-bvzsl region Lumbar stenosis L2/3, L3/4, L4/L5, with radiculopathy right lower extremity H/O prostate cancer Obstructive sleep apnea Refuses CPAP HTN (hypertension) previously on treatment for high blood pressure Atrial fibrillation Surgical History Status post excisional debridement 08/2021 left foot History of laminectomy 03/25 bilateral with partial facetectomies at L2-3, L3-4, L4-[address] Smith Other postprocedural status history of radiofrequency ablation for back pain x 2 Status post laser lithotripsy of ureteral calculus (11/06/21) S/P ureteral stent placement (09/2021) subsequent removal H/O esophagogastroduodenoscopy (10/30/21) 10/2021 pedunculated polyps removed from first portion of duodenum, otherwise normal History of colonoscopy (10/30/21) 11/2021 diverticulosis of sigmoid colon and internal hemorrhoids, sessile polyps removed History of back surgery S/P tonsillectomy S/P appendectomy History of pilonidal cyst Family History Grandmother Heart disease Hypertension Grandfather Hypertension MATERNAL Diabetes Mother No problems noted. Father No problems noted. 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/Wt Last Vital Signs Temp 97.7 F 04/27/24 10:05 Pulse 76 04/27/24 15:11 Resp 15 04/27/24 10:59 BP 109/62 04/27/24 12:30 Pulse Ox 99 04/27/24 15:11 O2 Del Method Room Air 04/27/24 15:11 Weight last 48 hrs Weight 108.862 kg Physical Exam 2 Const: COMMON NORMALS: no acute distress and patient oriented x3 HENMT: COMMON NORMALS: normocephalic HEAD & SCALP: normocephalic Eye: COMMON NORMALS: Equal, round and reactive pupils present Neck/C-Spine: COMMON NORMALS: full ROM and no lymphadenopathy Resp: COMMON NORMALS: normal respiratory effort, No retractions, No use of accessory muscles and clear to auscultation bilaterally AUSCULTATION: clear to auscultation bilaterally Cardio: COMMON NORMALS: regular rate, regular rhythm, S1 normal heart sound present and S2 normal heart sound present RATE: regular rate RHYTHM: r egular rhythm HEART SOUNDS: S1 normal heart sound present and S2 normal heart sound present GI: COMMON NORMALS: Normal to inspection, nondistended, normoactive bowel sounds present, Soft to palpation and non-tender Extremity: COMMON NORMALS: no calf tenderness and no pedal edema Neuro: COMMON NORMALS: patient oriented x3, CN's II-XII intact bilaterally and moves all extremities OTHER: bilateral lower extremity weakness, 3/5 bilaterally, has bilateral inversion, eversion of foot, dorsi and plantar flexion Psych: COMMON NORMALS: mental status grossly normal Data 04/27/24 10:48 04/27/24 10:48 A&P Assessment and plan (1) Discitis of lumbar region: (2) Vertebral osteomyelitis, acute: (3) Intractable back pain: Plan Lumbar vertebral discitis, with vertebral osteomyelitis MR/MR lumbar spine wo/w con [id number] IMPRESSION: 1. Interval development of discitis centered at the L3-4 level with endplate osteomyelitis described above. 2. Diffuse paravertebral soft tissue enhancement worse at the L3-4 levels. 3. Small amount of thin ventral epidural enhancement and thickening likely due to developing phlegmon/abscess at the L3-4 levels. No high-grade central canal stenosis. 4. Chronic disc space narrowing L2-3 is unchanged. Plan ? Orthopedic spine service has been consulted by ER ? Will speak to infectious disease ? Start vancomycin -Start meropenem ? Monitor inflammatory markers ? Blood cultures -Type 2 diabetes mellitus, monitor moderate dose scale, Lantus 30 units every 24 hours -Pain control Dilaudid 1 mg IV push every 4 hours -Continue gabapentin -Bilateral nephrostomy tubes, history of UTIs will get urinalysis, urine culture ? Has a history of atrial fibrillation, Xarelto currently on hold due to nephrostomy tube placement after procedures? Will have to get further records from [facility], will hold Xarelto for now ?full code -lovenox for dvt prophylaxis Attestations 2 Medical Necessity Statement*: Patient requires hospitalization, inpatient, greater than 2 minutes, discitis, vertebral osteomyelitis, requiring IV antibiotics, evaluation by orthopedic spine Diagnoses Discitis of lumbar region M46.46 Vertebral osteomyelitis, acute M46.20 Intractable back pain M54.9
[2024-04-27 15:35] LABS: Lactic Sepsis W/Reflex 0.9 mmol/L (0.5-2.2)
[2024-04-27 16:00] LABS: Bilirubin Urine Neg (Negative); Blood Urine 2+ (Negative); Glucose Urine UA Norm (Normal); Ketones Urine Negative (Negative); Leukocyte Esterase Urine 2+ (Negative); Nitrate Urine Positive (Negative); Protein Urine 1+ (Negative); Specific Gravity, Urine 1.005 (1.005-1.030); Urine Appearance Slightly Cloudy (CLEAR); Urine Color Yellow (Yellow); Urobilinogen Urine Norm (Negative); pH Urine 6 (5-7)
[2024-04-27 16:01] LABS: Add Urine Microscopic? YES; Bacteria Urine 1+ /hpf; RBC Urine 0-4 /hpf (0-2); WBC Urine 55-80 /hpf (0-5)
[2024-04-27 16:03] LABS: Add Urine Culture? No
[2024-04-27 16:47] LABS: Glucose Point of Care 88 mg/dL (70-110)
[2024-04-27 17:23] LABS: Thyroid Stimulating Hormone 1.29 uIU/mL (0.27-4.20)
[2024-04-27 17:25] LABS: INR 1.19 (0.8-1.2)
[2024-04-27] MEDS: enoxaparin 40 mg/0.4 mL Syringe SUBCUT (17:28)
[2024-04-27] MEDS: sodium chloride 0.9% 1,000 ML 50 ML IV (17:30)
--- NOTE | 2024-04-27 17:30 | P.CONIM_ITS ---
Providers/Reason For Consult 2 Consulting Physician/Specialty*: Hospitalist Reason for Consult*: Discitis Attending Physician: Omari Lopez MD Primary Care Provider: Trisha Urena MD History of Present Illness History of Present Illness Raphael Deal is a 74 year old male presents the ER today with back pain and discitis. I did surgery on this patient back in March 2021. He had a minimally invasive decompression at L2-L5. At this point when patient lays flat the pain is controlled when he sits up the pain is intense does not radiate into his legs. Review of Systems 2 Const: Reports: fatigue and malaise Card: Denies: chest pain Resp: Denies: dyspnea GI: Denies: abdominal pain : Denies: flank pain Medications/Allergies Home Medications Medication Instructions Recorded Confirmed Last Taken Type fluticasone 100 mcg-salmeterol 50 1 inh inhalation BID 10/03/21 04/27/24 04/27/24 History mcg/dose blistr powdr for inhalation (Wixela Inhub) rosuvastatin 40 mg tablet 40 mg PO BEDTIME@12/04/21 04/27/24 04/26/24 History tamsulosin 0.4 mg capsule 0.4 mg PO BEDTIME@12/04/21 04/27/24 04/26/24 History galantamine 4 mg tablet 4 mg PO BID 05/20/23 04/27/24 04/27/24 History acetaminophen 325 mg tablet 650 mg PO Q6H PRN Pain 07/02/23 04/27/24 04/20/24 History (Tylenol) bisacodyl 10 mg rectal suppository 10 mg [place] DAILY PRN Constipation 07/02/23 04/27/24 03/31/24 History (Dulcolax (bisacodyl)) finasteride 5 mg tablet 5 mg PO DAILY@07/02/23 04/27/24 04/27/24 History gabapentin 400 mg capsule 400 mg PO TID 07/02/23 04/27/24 04/27/24 History menthol 0.44 %-zinc oxide 20.6 % See Rx Instructions .Route .COMPLEX 07/02/23 04/27/24 04/26/24 History topical ointment (Calmoseptine) therapeutic multivitamin 1 tab PO DAILY@07/02/23 04/27/2424/24 History mometasone 50 mcg/actuation nasal 1 spray intranasal BID 08/04/23 04/27/24 04/27/24 History spray insulin aspart U-100 100 unit/mL See Rx Instructions .Route 08/07/23 04/27/24 04/26/24 Rx (3 mL) subcutaneous pen (Novolog .COMPLEX #15 mL FlexPen U-100 Insulin aspart) flash glucose scanning reader #1 ea 08/25/23 04/27/24 Unknown Rx (FreeStyle Jimi 2 [place]) FreeStyle Jimi 2 Sensor (flash #6 ea 12/11/23 04/27/24 Unknown Rx glucose sensor) blood-glucose meter,continuous #1 ea 02/08/24 04/27/24 Unknown Rx (Dexcom G7 Carpentry Supervisor) blood-glucose sensor (Dexcom G7 #3 ea 02/08/24 04/27/24 Unknown Rx Sensor device) albuterol sulfate 90 mcg/actuation 2 puff inhalation Q4H PRN Dyspnea 04/27/24 04/27/24 06/22/23 History aerosol inhaler amiodarone 200 mg tablet (Pacerone) 200 mg PO DAILY 04/27/24 04/27/24 04/27/24 History buspirone 10 mg tablet 10 mg PO BID PRN Anxiety 04/27/24 04/27/24 04/26/24 History docusate sodium 100 mg capsule 100 mg PO BID 04/27/24 04/27/24 04/27/24 History (Colace) furosemide 20 mg tablet 20 mg PO DAILY 04/27/24 04/27/24 04/27/24 History hydrocodone 5 mg-acetaminophen 325 1 tab PO Q6H PRN Pain 04/27/24 04/27/24 04/26/24 History mg tablet insulin glargine 100 unit/mL (3 60 unit SUBCUT Q24H 04/27/24 04/27/24 04/26/24 History mL) subcutaneous pen (Lantus Solostar U-100 Insulin) metoprolol tartrate 50 mg tablet 100 mg PO BID 04/27/24 04/27/24 04/27/24 History pantoprazole 40 mg tablet,delayed 40 mg PO BID 04/27/24 04/27/24 04/27/24 History release potassium chloride 10 mEq 10 meq PO DAILY 04/27/24 04/27/24 04/27/24 History tablet,extended release tramadol 50 mg tablet 50 mg PO Q6H PRN Pain 04/27/24 04/27/24 04/26/24 History Allergies Allergy/AdvReac Type Severity Reaction Status Date / Time pollen extracts Allergy Unknown Verified 04/27/24 10:20 PFSH Acute 2 PFSH: Medical History Yeast UTI Hematuria due to acute cystitis Mild cognitive impairment with memory loss Bacteriuria Alzheimer disease 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 mellitus History of Doppler ultrasound 08/2021 venous no DVT BLE 08/2021 arterial patent vessels, left posterior tibial may be less than 60% stenosis, left dorsalis pedis not visualized Gait instability SARS-CoV-2 positive positive test 11/17/2021 symptoms weakness, hypoglycemia, altered mental status and low grade fever Anemia Intermittent self-catheterization of bladder due to urinary retention History of sleep study 02/22 limited sleep, no apnea noted but did have nocturnal hypoxemia, recommended to use nocturnal oxygen History of electromyography 01/23 Interpretation: The study provides electrodiagnostic evidence for an axonal sensorimotor polyneuropathy based on small or absent CMAPs and SNAPs with denervation seen distally on EMG. The study is limited for evaluation of lumbar radiculopathy related to the patient's anticoagulated state. History of echocardiogram 05/2021 EF 65% History of cardiovascular stress test 05/2021 normal EKG response, perfusion study without findings of ischemia Diabetes mellitus, type II Chronic anticoagulation Taken off Xarelto secondary to hematuria BPH loc w urin obs/LUTS Obstructive pyelonephritis 09/2021 required ureteral stent placement Left ureteral calculus Diabetic foot ulcer 08/2021 - treated with I&D, antibiotics and wound care clinic management Lumbar stenosis with neurogenic claudication 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 mellitus Cervicalgia of msnwezdo-wffwdgf-pxyyr region Lumbar stenosis L2/3, L3/4, L4/L5, with radiculopathy right lower extremity H/O prostate cancer Obstructive sleep apnea Refuses CPAP HTN (hypertension) previously on treatment for high blood pressure Atrial fibrillation Surgical History Status post excisional debridement 08/2021 left foot History of laminectomy 03/25 bilateral with partial facetectomies at L2-3, L3-4, L4-[address] Smith Other postprocedural status history of radiofrequency ablation for back pain x 2 Status post laser lithotripsy of ureteral calculus (11/06/21) S/P ureteral stent placement (09/2021) subsequent removal H/O esophagogastroduodenoscopy (10/30/21) 10/2021 pedunculated polyps removed from first portion of duodenum, otherwise normal History of colonoscopy (10/30/21) 11/2021 diverticulosis of sigmoid colon and internal hemorrhoids, sessile polyps removed History of back surgery S/P tonsillectomy S/P appendectomy History of pilonidal cyst Family History Grandmother Heart disease Hypertension Grandfather Hypertension MATERNAL Diabetes Mother No problems noted. Father No problems noted. 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 Patient's sensation is intact. MRI is reviewed mostly shows discitis at L2-3 L3-4. Do not see any epidural abscess. Data 04/27/24 10:48 04/27/24 10:48 Micro: Microbiology 04/27/24 14:56 Blood Culture - Preliminary Blood SPECIMEN COLLECTED 04/27/24 15:05 Blood Culture - Preliminary Blood SPECIMEN COLLECTED A&P Assessment and plan (1) Discitis of lumbar region: Do not see any significant epidural abscess. At this point we will treat with antibiotics. And continue to monitor. Consult Attestations 2 Medical Necessity Statement: Per primary service Coding Level of Care Code Acute Code for [facility] Diagnoses Discitis of lumbar region M46.46
[2024-04-27] MEDS: metoprolol tartrate 50 mg Tablet 100 MG PO (17:36)
[2024-04-27] MEDS: docusate sodium 100 mg Capsule PO (17:36)
[2024-04-27] MEDS: pantoprazole DR 40 mg Tablet PO (17:37)
[2024-04-27] MEDS: vancomycin 1,000 MG in sodium chloride 0.9% 250 ML 250 MG IV (18:10)
[2024-04-27] MEDS: atorvastatin 40 mg Tablet PO (18:12)
[2024-04-27] MEDS: tamsulosin 0.4 mg Capsule PO (18:12)
[2024-04-27 20:25] LABS: Glucose Point of Care 144 mg/dL (70-110)
[2024-04-27 21:01] LABS: Estmated Average Glucose 157; Hemoglobin A1C 7.1 % (4.0-6.0)
[2024-04-27] MEDS: gabapentin 400 mg Capsule PO (21:10)
[2024-04-27] MEDS: insulin lispro 100 unit/1 mL SUBCUT (21:10)
[2024-04-27] MEDS: sodium chloride 0.9% 250 ML IV (21:11)
[2024-04-27] MEDS: meropenem 500 mg SDV IVP (22:51)
[2024-04-28] VITALS (10 sets, daily range): BP systolic 85–104; BP diastolic 61–69; PULSE 67–93; RESP 16–18; TEMP 36.3–36.8; O2SAT 90–95
--- NOTE | 2024-04-28 03:25 | PC.NURSE ---
1999 VS pt bp was 90/50 manual, Dr. juarez notified, order recieved for 250 ML NS bolus and recheck Bp, bolus given rechecked bp 93/60, Dr. Juarez notified, and message received that as long as map is 65 and above we are okay.
[2024-04-28 05:06] LABS: Basophils # 0.1 10^3/uL (0.0-0.1); Eosinophils # 0.7 10^3/uL (0.0-0.8); Eosinophils % 5.9 %; Hematocrit 30.3 % (37-53); Lymphocytes # 2.3 10^3/uL (0.8-4.8); Lymphocytes % 20.2 %; Mean Corpuscular HGB Conc 29.4 g/dL (30-55); Mean Corpuscular Hemoglobin 23.9 pg (27-33); Mean Corpuscular Volume 81.5 fl (82-101); Mean Platelet Volume 9.6 fL (7.4-10.4); Monocytes # 0.9 10^3/uL (0.2-0.9); Monocytes % 7.4 %; Neutrophils # 7.51 10^3/uL (1.8-7.7); Neutrophils % 65.2 %; Nucleated Red Blood Cells % 0 %; Platelet Count 452 10^3/cmm (157-399); Red Blood Count 3.72 10^6/uL (3.85-5.65); Red Cell Distribution Width 17.2 % (12.1-15.1); White Blood Count 11.51 10^3/uL (3.29-11.43)
[2024-04-28 05:29] LABS: Anion Gap 15.3 (5-19); Blood Urea Nitrogen 22 mg/dL (8-23); Calcium 8.7 mg/dL (8.5-10.5); Carbon Dioxide 23 mmol/L (22-29); Chloride 106 mmol/L (98-107); Creatinine Clr Calc Pharmacy 51.4124; Glucose 85 mg/dL (65-115); Osmolality Calculated 293 mOsm/kg (285-295); Potassium 4.3 mmol/L (3.5-5.1); Sodium 140 mmol/L (136-145)
[2024-04-28 06:38] LABS: Glucose Point of Care 76 mg/dL (70-110)
[2024-04-28] MEDS: meropenem 500 mg SDV IVP ×3 (06:39→22:30)
[2024-04-28] MEDS: multivitamin therapeutic Tablet 1 TAB PO (06:40)
[2024-04-28] MEDS: finasteride 5 mg Tablet PO (06:40)
[2024-04-28] MEDS: FUROsemide 20 mg Tablet PO (09:03)
[2024-04-28] MEDS: potassium chloride ER 10 mEq Tablet PO (09:03)
[2024-04-28] MEDS: docusate sodium 100 mg Capsule PO ×2 (09:03→18:21)
[2024-04-28] MEDS: gabapentin 400 mg Capsule PO ×3 (09:03→21:22)
[2024-04-28] MEDS: pantoprazole DR 40 mg Tablet PO ×2 (09:03→18:21)
--- NOTE | 2024-04-28 09:36 | PC.CHAP ---
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 chicken buyer visit [] Patient/Family/Request visit [] Outpatient visit [] Follow-up visit [] Physician referral [] Code/Alert [] Routine visit [] Staff referral [] Actively dying [x] Patient sleeping [] Family support [] [] Out of room [] Palliative care [] [] Receiving care in room [] Pre-surgical visit [] Trauma [] Long length of stay [] ICU visit [] Other: Relational/Emotional Strength [] Patient feels connected with others/family/visitors/staff [] Distress [] Loneliness/isolation [] Abandonment Spirituality of Patient [] Person of Melva [] Attends Tenriism of their Melva [] Believes in Prayer [] Reads Bible or Yazidi materials [] There are Spiritual issues to be addressed Case Management Rn Interventions [] Prayer [] Active listening [] Non-anxious presence [] Spiritual/emotional support [] Crisis/trauma care [] Spiritual counseling [] Bereavement support [] Provided bereavement packet [] Provided Bible/devotional materials [] Provided toy/stuffed animal, coloring book to patient or family member [] Provided Communion [] Anointing/Heber [] Salvation [] Completed spiritual assessment [] Other: Impact on Illness or Injury [] Angry [] Fearful [] Anxious [] Often cries [] Exhaustion [] Unable to work [] Unable to attend cheondoism [] Unable to walk/stand [] Unable to read [] Unable to drive [] Unable to eat/drink [] Unable to sleep [] Unable to be with family [] Patient intubated [] Other: Summary Time spent with patient
[2024-04-28] MEDS: amiodarone 200 mg Tablet PO (10:54)
[2024-04-28 11:10] LABS: Glucose Point of Care 123 mg/dL (70-110)
--- NOTE | 2024-04-28 13:27 | P.PN_ITS ---
Subjective 2 Subjective: Patient was seen this morning, continues to complain of back pain, but no well- controlled with IV medications, no nausea, no vomiting, no fevers, no chills, he tells me that the mobility in his bilateral extremities is improving, but remains reduced denies any lack of sensation in bilateral legs, he tells me that about a month ago he was ambulating, but over the last month his ambulation is to increase due to back pain and weakness in both his legs, no urinary incontinence, no bowel incontinence Vitals/I&O/Wt Last Vital Signs Temp 97.9 F 04/28/24 11:35 Pulse 86 04/28/24 11:35 Resp 16 04/28/24 11:35 BP 102/66 04/28/24 11:35 Pulse Ox 92 04/28/24 11:35 O2 Del Method Room Air 04/28/24 11:35 04/27/24 04/28/24 04/28/24 22:59 06:59 14:59 Intake Total 1050 / 1050 0 / 1050 490 / 490 Output Total 450 / 450 400 / 850 Balance 600 / 600 -400 / 200 490 / 490 Weight last 48 hrs Weight 97.159 kg Weight 108.862 kg Physical Exam 2 Const: COMMON NORMALS: no acute distress and patient oriented x3 Resp: COMMON NORMALS: normal respiratory effort, No retractions, No use of accessory muscles and clear to auscultation bilaterally AUSCULTATION: clear to auscultation bilaterally Cardio: COMMON NORMALS: regular rate, regular rhythm, S1 normal heart sound present and S2 normal heart sound present RATE: regular rate RHYTHM: r egular rhythm HEART SOUNDS: S1 normal heart sound present and S2 normal heart sound present GI: COMMON NORMALS: Normal to inspection, nondistended, normoactive bowel sounds present and non-tender Extremity: COMMON NORMALS: no pedal edema Neuro: COMMON NORMALS: patient oriented x3 Psych: COMMON NORMALS: mental status grossly normal Data 04/28/24 04:39 04/28/24 04:39 Micro: Microbiology 04/27/24 15:09 Urine Culture - Preliminary Urine Kidney Gram Negative Rods 04/27/24 14:56 Blood Culture - Preliminary Blood SPECIMEN COLLECTED 04/27/24 15:05 Blood Culture - Preliminary Blood SPECIMEN COLLECTED A&P Assessment and plan (1) Discitis of lumbar region: (2) Vertebral osteomyelitis, acute: (3) Intractable back pain: Plan Lumbar vertebral discitis, with vertebral osteomyelitis MR/MR lumbar spine wo/w con [id number] IMPRESSION: 1. Interval development of discitis centered at the L3-4 level with endplate osteomyelitis described above. 2. Diffuse paravertebral soft tissue enhancement worse at the L3-4 levels. 3. Small amount of thin ventral epidural enhancement and thickening likely due to developing phlegmon/abscess at the L3-4 levels. No high-grade central canal stenosis. 4. Chronic disc space narrowing L2-3 is unchanged. Plan ? Orthopedic spine service has been consulted by ER ? Will speak to infectious disease, will speak to Dr. Smith/IR about potential biopsy to guide antibiotic regimen ? Start vancomycin -Start meropenem ? Monitor inflammatory markers ? Blood cultures -Type 2 diabetes mellitus, monitor moderate dose scale, Lantus 30 units every 24 hours -Pain control Dilaudid 1 mg IV push every 4 hours -Continue gabapentin -Bilateral nephrostomy tubes, history of UTIs will get urinalysis, urine culture pending ? Has a history of atrial fibrillation, -Will hold Xarelto for now, will resume after procedure ?full code -lovenox for dvt prophylaxis, SCDs -Plan for today ? Spoke to Dr. Cartwright's urology's, nurse, about patient's nephrostomy tube, clinical left nephrostomy tube, April 05, he had a right nephrostomy tube placed, for reasons possibly secondary to chronic hydronephrosis, but it is not exactly clear, he was supposed to follow-up 2 weeks after, no plans on changing out, no plans on removal, he is set to follow-up with Dr. Cartwright in May, unfortunately Dr. Cartwright is on vacation, and there is no urologist covering for him, and he is no longer associated with [facility], I provided my number, so once he is back from vacation, I can get more information, from him directly, requested medical records -Spoke to infectious disease, recommend tissue biopsy to guide antibiotic regimen, -Spoke to Dr. Smith, he recommended to reach out to IR, however if IR cannot do biopsy he will certainly be available -Waiting for callback from Dr. Chi ? Plan for today continue IV antibiotics ? Hold Lovenox DVT prophylaxis, last dose yesterday Attestations 2 Medical Necessity Statement*: Patient requires hospitalization for routine osteomyelitis, discitis, inpatient, greater than 2 minutes, requiring IV antibiotics, surgical consultation for tissue sampling Coding Level of Care Code Acute Code for [facility] Diagnoses Discitis of lumbar region M46.46 Vertebral osteomyelitis, acute M46.20 Intractable back pain M54.9
[2024-04-28] MEDS: sodium chloride 0.9% 1,000 ML 50 ML IV (15:13)
--- NOTE | 2024-04-28 16:05 | PC.OT ---
OT EVALUATION ATTEMPTED. PATIENT WILLING TO PERFORM BUT STATES TOO MUCH BACK PAIN AT THIS TIME. REQUESTS EVALUATION TOMORROW WITH P.T. AND PRE-MEDICATION WITH PAIN MEDS.
[2024-04-28 17:25] LABS: Glucose Point of Care 170 mg/dL (70-110)
--- NOTE | 2024-04-28 17:59 | P.CONIM_ITS ---
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 He is currently admitted to the hospital since April 27, 2024 after presenting here with back pain. He has a previous history of L1-L5 decompression performed by Dr. Smith in 2020. Review of chart shows he has followed with Dr. Duke from pain management previously due to difficulty ambulating and back pain. He underwent lumbar spine MRI on admission which showed development of discitis centered at the L3-L4 level with endplate osteomyelitis along with diffuse paravertebral soft tissue enhancement worse at the L3-L4 levels. There was a small amount of ventral epidural enhancement likely due to developing phlegmon/abscess. These findings appear to be new compared to CT and MRIs dated 2020 and 2021. ESR 42, CRP 86, comparative CRP values from March 2024 at 82, from August 2023 at 64, July 2023 at 151, May 2023 at 221, from 2020 as high as 468. He has leukocytosis 14.8. Patient had bilateral nephrostomies placed about 1 month ago at [facility]. Records are currently awaited from this hospital admission. Patient states he was admitted for about a week and had IV antibiotics. As far as he is aware he did not have any bacteremia at that time. He was not discharged with any long-term antibiotics. He went to [facility] afterwards for rehab until being sent here with worsening back pain. Review of Systems 2 General: Reports: 10 or more systems reviewed and unremarkable except in HPI and below Const: Denies: fever(s), chills or body aches Eyes: Denies: change in vision, blurry vision or photophobia ENMT: Reports: hoarseness; Denies: throat pain, enlarged tonsils, odynophagia or nasal congestion Card: Denies: chest pain, palpitations, irregular heart rhythm, edema, swelling of feet/ankles, lightheadedness, pre-syncope, dyspnea on exertion or orthopnea Resp: Denies: dyspnea, productive cough, non-productive cough, wheezing, stridor, pain on inspiration, change in phlegm color, hemoptysis or chest congestion GI: Denies: abdominal pain, nausea, vomiting, hematemesis, coffee ground emesis, dysphagia, heartburn, diarrhea, constipation, GI cramping, change in stool character, hematochezia or melena : Denies: flank pain, dysuria, urinary frequency, urinary urgency, urinary hesitancy or hematuria Musc: Denies: neck pain, back pain, extremity pain, joint swelling, joint warmth or deformity Neuro: Denies: headache(s), numbness in extremities, weakness in extremities, sensory changes, difficulty walking, frequent falls, dizziness, vertigo, behavioral changes, Slurred speech present or seizure-like activity Psych: Denies: anxiety, depression, suicidal ideation or homicidal ideation Endo: Denies: polyuria, polydipsia, tired all the time, cold intolerance or hot flashes Felix/Lymph: Denies: easy bruising or easy bleeding Medications/Allergies Home Medications Medication Instructions Recorded Confirmed Last Taken Type fluticasone 100 mcg-salmeterol 50 1 inh inhalation BID 10/03/21 04/27/24 04/27/24 History mcg/dose blistr powdr for inhalation (Wixela Inhub) rosuvastatin 40 mg tablet 40 mg PO BEDTIME@12/04/21 04/27/24 04/26/24 History tamsulosin 0.4 mg capsule 0.4 mg PO BEDTIME@12/04/21 04/27/24 04/26/24 History galantamine 4 mg tablet 4 mg PO BID 05/20/23 04/27/24 04/27/24 History acetaminophen 325 mg tablet 650 mg PO Q6H PRN Pain 07/02/23 04/27/24 04/20/24 History (Tylenol) bisacodyl 10 mg rectal suppository 10 mg UT DAILY PRN Constipation 07/02/23 04/27/24 03/31/24 History (Dulcolax (bisacodyl)) finasteride 5 mg tablet 5 mg PO DAILY@07/02/23 04/27/24 04/27/24 History gabapentin 400 mg capsule 400 mg PO TID 07/02/23 04/27/24 04/27/24 History menthol 0.44 %-zinc oxide 20.6 % See Rx Instructions .Route .COMPLEX 07/02/23 04/27/24 04/26/24 History topical ointment (Calmoseptine) therapeutic multivitamin 1 tab PO DAILY@07 07/02/23 04/27/24 04/27/24 History mometasone 50 mcg/actuation nasal 1 spray intranasal BID 08/04/23 04/27/24 04/27/24 History spray insulin aspart U-100 100 unit/mL See Rx Instructions .Route 08/07/23 04/27/24 04/26/24 Rx (3 mL) subcutaneous pen (Novolog .COMPLEX #15 mL FlexPen U-100 Insulin aspart) flash glucose scanning reader #1 ea 08/25/23 04/27/24 Unknown Rx (FreeStyle Jimi 2 [place]) FreeStyle Jimi 2 Sensor (flash #6 ea 12/11/23 04/27/24 Unknown Rx glucose sensor) blood-glucose meter,continuous #1 ea 02/08/24 04/27/24 Unknown Rx (Dexcom G7 [facility]inator) blood-glucose sensor (Dexcom G7 #3 ea 02/08/24 04/27/24 Unknown Rx Sensor device) albuterol sulfate 90 mcg/actuation 2 puff inhalation Q4H PRN Dyspnea 04/27/24 04/27/24 06/22/23 History aerosol inhaler amiodarone 200 mg tablet (Pacerone) 200 mg PO DAILY 04/27/24 04/27/24 04/27/24 History buspirone 10 mg tablet 10 mg PO BID PRN Anxiety 04/27/24 04/27/24 04/26/24 History docusate sodium 100 mg capsule 100 mg PO BID 04/27/24 04/27/24 04/27/24 History (Colace) furosemide 20 mg tablet 20 mg PO DAILY 04/27/24 04/27/24 04/27/24 History hydrocodone 5 mg-acetaminophen 325 1 tab PO Q6H PRN Pain 04/27/24 04/27/24 04/26/24 History mg tablet insulin glargine 100 unit/mL (3 60 unit SUBCUT Q24H 04/27/24 04/27/24 04/26/24 History mL) subcutaneous pen (Lantus Solostar U-100 Insulin) metoprolol tartrate 50 mg tablet 100 mg PO BID 04/27/24 04/27/24 04/27/24 History pantoprazole 40 mg tablet,delayed 40 mg PO BID 04/27/24 04/27/24 04/27/24 History release potassium chloride 10 mEq 10 meq PO DAILY 04/27/24 04/27/24 04/27/24 History tablet,extended release tramadol 50 mg tablet 50 mg PO Q6H PRN Pain 04/27/24 04/27/24 04/26/24 History Allergies Allergy/AdvReac Type Severity Reaction Status Date / Time pollen extracts Allergy Unknown Verified 04/27/24 10:20 Current Medications Generic Name Dose Route Start Last Admin Trade Name Freq PRN Reason Stop Dose Admin Amiodarone HCl 200 mg 04/28/24 09:00 04/28/24 10:54 Amiodarone 200 Mg Tablet PO 200 mg DAILY ROSALBA Administration Atorvastatin Calcium 40 mg 04/27/24 19:00 04/27/24 18:12 Atorvastatin 40 Mg Tablet PO 40 mg BEDTIME@19 ROSALBA Administration Docusate Sodium 100 mg 04/27/24 18:00 04/28/24 09:03 Docusate Sodium 100 Mg Capsule PO 100 mg BID ROSALBA Administration Finasteride 5 mg 04/28/24 07:00 04/28/24 06:40 Finasteride 5 Mg Tablet PO 5 mg DAILY@07 ROSALBA Administration Furosemide 20 mg 04/28/24 09:00 04/28/24 09:03 Furosemide 20 Mg Tablet PO 20 mg DAILY ROSALBA Administration Gabapentin 400 mg 04/27/24 21:00 04/28/24 15:13 Gabapentin 400 Mg Capsule PO 400 mg TID ROSALBA Administration Sodium Chloride 1,000 mls @ 50 mls/hr 04/27/24 16:30 04/28/24 15:13 Sodium Chloride 0.9% IV 50 mls/hr .Q20H ROSALBA Administration Insulin Human Lispro 0 unit 04/27/24 18:00 04/28/24 12:36 Insulin Lispro 100 Unit/1 Ml SUBCUT Not Given WM&BEDTIME ROSALBA Protocol Meropenem 500 mg 04/27/24 23:00 04/28/24 15:12 Meropenem 500 Mg Sdv IVP 500 mg Q8H ROSALBA Administration Protocol Multivitamins Therapeutic 1 tab 04/28/24 07:00 04/28/24 06:40 Multivitamin Therapeutic Tablet PO 1 tab DAILY@07 ROSALBA Administration Pantoprazole Sodium 40 mg 04/27/24 18:00 04/28/24 09:[address] 40 Mg Tablet PO 40 mg BID ROSALBA Administration Potassium Chloride 10 meq 04/28/24 09:00 04/28/24 09:03 Potassium Chloride Er 10 Meq Tablet PO 10 meq DAILY ROSALBA Administration Tamsulosin HCl 0.4 mg 04/27/24 19:00 04/27/24 18:12 Tamsulosin 0.4 Mg Capsule PO 0.4 mg BEDTIME@19 ROSALBA Administration PFSH Acute 2 PFSH: Medical History Yeast UTI Hematuria due to acute cystitis Mild cognitive impairment with memory loss Bacteriuria Alzheimer disease 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 mellitus History of Doppler ultrasound 08/2021 venous no DVT BLE 08/2021 arterial patent vessels, left posterior tibial may be less than 60% stenosis, left dorsalis pedis not visualized Gait instability SARS-CoV-2 positive positive test 11/17/2021 symptoms weakness, hypoglycemia, altered mental status and low grade fever Anemia Intermittent self-catheterization of bladder due to urinary retention History of sleep study 02/22 limited sleep, no apnea noted but did have nocturnal hypoxemia, recommended to use nocturnal oxygen History of electromyography 01/23 Interpretation: The study provides electrodiagnostic evidence for an axonal sensorimotor polyneuropathy based on small or absent CMAPs and SNAPs with denervation seen distally on EMG. The study is limited for evaluation of lumbar radiculopathy related to the patient's anticoagulated state. History of echocardiogram 05/2021 EF 65% History of cardiovascular stress test 05/2021 normal EKG response, perfusion study without findings of ischemia Diabetes mellitus, type II Chronic anticoagulation Taken off Xarelto secondary to hematuria BPH loc w urin obs/LUTS Obstructive pyelonephritis 09/2021 required ureteral stent placement Left ureteral calculus Diabetic foot ulcer 08/2021 - treated with I&D, antibiotics and wound care clinic management Lumbar stenosis with neurogenic claudication 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 mellitus Cervicalgia of [id number]-[id number] region Lumbar stenosis L2/3, L3/4, L4/L5, with radiculopathy right lower extremity H/O prostate cancer Obstructive sleep apnea Refuses CPAP HTN (hypertension) previously on treatment for high blood pressure Atrial fibrillation Surgical History Status post excisional debridement 08/2021 left foot History of laminectomy 03/25 bilateral with partial facetectomies at L2-3, L3-4, L4-[address] Smith Other postprocedural status history of radiofrequency ablation for back pain x 2 Status post laser lithotripsy of ureteral calculus (11/06/21) S/P ureteral stent placement (09/2021) subsequent removal H/O esophagogastroduodenoscopy (10/30/21) 10/2021 pedunculated polyps removed from first portion of duodenum, otherwise normal History of colonoscopy (10/30/21) 11/2021 diverticulosis of sigmoid colon and internal hemorrhoids, sessile polyps removed History of back surgery S/P tonsillectomy S/P appendectomy History of pilonidal cyst Family History Grandmother Heart disease Hypertension Grandfather Hypertension MATERNAL Diabetes Mother No problems noted. Father No problems noted. 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/Wt Last Vital Signs Temp 97.9 F 04/28/24 15:24 Pulse 87 04/28/24 15:24 Resp 16 04/28/24 15:24 BP 104/68 04/28/24 15:24 Pulse Ox 93 04/28/24 15:24 O2 Del Method Room Air 04/28/24 15:24 04/28/24 04/28/24 04/28/24 06:59 14:59 22:59 Intake Total 0 / 1050 490 / 490 1000 / 1490 Output Total 400 / 850 1100 / 1100 Balance -400 / 200 -610 / -610 1000 / 390 Weight last 48 hrs Weight 97.159 kg Weight 108.862 kg Physical Exam 2 Narrative: General: No acute distress, AO x3 HEENT: PERRLA, pupils bilaterally equal and reactive, pallors not present Chest: Normal vesicular breath sounds, no added sounds, equal good air entry bilaterally CVS: S1-S2 regular, no murmurs, no tachycardia, no gallops, no rubs Abdomen: Soft, nontender, no organomegaly, bowel sounds present; B/L nephrostomies in place. Neuro: No focal deficits, no facial deformity, AO x3, power 5/5 in all limbs Data 04/29/24 05:25 04/29/24 05:25 Micro: Microbiology 04/27/24 15:05 Blood Culture - Preliminary Blood NEGATIVE TO DATE 04/27/24 14:56 Blood Culture - Preliminary Blood NEGATIVE TO DATE 04/27/24 15:09 Urine Culture - Preliminary Urine Kidney Gram Negative Rods Other data: Date of Service: 04/27/24 Procedure(s): MR lumbar spine wo/w con [id number] MR/MR lumbar spine wo/w con [id number] IMPRESSION: 1. Interval development of discitis centered at the L3-4 level with endplate osteomyelitis described above. 2. Diffuse paravertebral soft tissue enhancement worse at the L3-4 levels. 3. Small amount of thin ventral epidural enhancement and thickening likely due to developing phlegmon/abscess at the L3-4 levels. No high-grade central canal stenosis. 4. Chronic disc space narrowing L2-3 is unchanged. A&P Assessment and plan (1) Discitis of lumbar region: 74-year-old male with past medical history as above, recent history of pyelonephritis with bilateral nephrostomies in place. Records have been requested from [facility] where patient underwent the procedure Uncertain if patient may have been bacteremic around the time of the procedure which would explain the lumbar discitis. Currently admitted here with worsening back pain and found to have interval development of discitis at the L3-L4 level with endplate osteomyelitis. There is diffuse paravertebral soft tissue enhancement at the L3-L4 level. Question of ventral epidural enhancement and thickening due to developing phlegmon/abscess. Patient CRP is noted to be elevated, however it is actually lower when trended over the past several years. Review of chart shows that patient has a history of chronic back pain and neuropathic pain for which she has followed with pain management in the past. He denies any recent trauma or any injections into the spine. History of Bilateral L2/3 L3/4 L4/5laminectomy with partial facetectomies DOS: 03/20/21 Plan: Discitis and osteomyelitis as noted above. Elevated inflammatory markers, however these are actually lower than what they have been previously over several years. Recommend biopsy and cultures from the spine to confirm diagnosis of osteomyelitis and guide further antibiotic treatment. Will request recent records from [facility], potentially if patient had been bacteremic at some point during his recent hospitalization, hematogenous dissemination and osteomyelitis would be a strong consideration. Blood cultures taken on April 27 currently pending. Reviewed spine surgery consult. Discontinue vancomycin, minimize risk of compromising cultures. Can continue meropenem for now given gram-negative rods seen on urine culture, concern for UTI. follow urine cx Will follow Consult Attestations 2 Medical Necessity Statement: per admitting Coding Level of Care Code Acute Code for Chg Fwd High MDM includes number and complexity of problems actively addressed during encounter, amount and/or complexity of data reviewed/ordered and described risk of complication, morbidity or mortality of management as documented Diagnoses Discitis of lumbar region M46.46
[2024-04-28] MEDS: insulin lispro 100 unit/1 mL SUBCUT ×2 (18:21→21:22)
[2024-04-28 21:14] LABS: Glucose Point of Care 195 mg/dL (70-110)
[2024-04-28] MEDS: acetaminophen 325 mg Tablet 650 MG PO (21:21)
[2024-04-28] MEDS: atorvastatin 40 mg Tablet PO (21:22)
[2024-04-28] MEDS: tamsulosin 0.4 mg Capsule PO (21:22)
[2024-04-29] VITALS (20 sets, daily range): BP systolic 94–125; BP diastolic 62–86; PULSE 93–123; RESP 16–20; TEMP 36.1–36.9; O2SAT 92–100
[2024-04-29 05:48] LABS: Basophils # 0.1 10^3/uL (0.0-0.1); Basophils % 1.1 %; Eosinophils # 0.7 10^3/uL (0.0-0.8); Eosinophils % 7.1 %; Hematocrit 32.5 % (37-53); Lymphocytes # 2.1 10^3/uL (0.8-4.8); Lymphocytes % 20.5 %; Mean Corpuscular HGB Conc 29.2 g/dL (30-55); Mean Corpuscular Volume 82.1 fl (82-101); Mean Platelet Volume 9.4 fL (7.4-10.4); Monocytes # 0.7 10^3/uL (0.2-0.9); Monocytes % 6.7 %; Neutrophils # 6.57 10^3/uL (1.8-7.7); Neutrophils % 64.3 %; Nucleated Red Blood Cells % 0 %; Platelet Count 487 10^3/cmm (157-399); Red Blood Count 3.96 10^6/uL (3.85-5.65); Red Cell Distribution Width 17.1 % (12.1-15.1); White Blood Count 10.21 10^3/uL (3.29-11.43)
[2024-04-29 06:10] LABS: Anion Gap 16.2 (5-19); Blood Urea Nitrogen 23 mg/dL (8-23); Calcium 8.9 mg/dL (8.5-10.5); Carbon Dioxide 23 mmol/L (22-29); Chloride 103 mmol/L (98-107); Creatinine Clr Calc Pharmacy 51.4124; Glucose 162 mg/dL (65-115); Osmolality Calculated 293 mOsm/kg (285-295); Potassium 4.2 mmol/L (3.5-5.1); Sodium 138 mmol/L (136-145)
[2024-04-29] MEDS: finasteride 5 mg Tablet PO (06:10)
[2024-04-29] MEDS: multivitamin therapeutic Tablet 1 TAB PO (06:10)
[2024-04-29] MEDS: meropenem 500 mg SDV IVP ×3 (06:10→22:58)
[2024-04-29 08:23] LABS: Glucose Point of Care 173 mg/dL (70-110)
[2024-04-29] MEDS: potassium chloride ER 10 mEq Tablet PO (09:22)
[2024-04-29] MEDS: amiodarone 200 mg Tablet PO (09:22)
[2024-04-29] MEDS: sodium chloride 0.9% 1,000 ML 50 ML IV (09:22)
[2024-04-29] MEDS: gabapentin 400 mg Capsule PO ×2 (09:22→21:22)
[2024-04-29] MEDS: FUROsemide 20 mg Tablet PO (09:22)
[2024-04-29] MEDS: docusate sodium 100 mg Capsule PO (09:22)
[2024-04-29] MEDS: pantoprazole DR 40 mg Tablet PO (09:22)
--- NOTE | 2024-04-29 09:23 | W.PM.OPSUD ---
Surgery/Procedure H&P Update DATE OF PROCEDURE: April 29, 2024 DATE H&P PERFORMED: 04/28/24 H&P UPDATE INFORMATION: I have reviewed H&P completed within last 30 days, I have examined patient prior to procedure and No changes to prior documentation PLANNED PROCEDURE: Operation Date: 04/29/24 14:45 Proposed Procedures p Lumbar Biopsy - L4(Not Applicable) - Aldo Smith DO
[2024-04-29] MEDS: HYDROmorphone 1 mg/mL INJ 1 mL 0.5 MG IVP ×2 (09:29→22:58)
--- NOTE | 2024-04-29 09:44 | PC.SOCIAL ---
IMM Update pg 2 of IMM Updated and reviewed w/ patient. Copy provided and copy dated, initialed and placed in chart.
--- NOTE | 2024-04-29 11:04 | PC.CHAP ---
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 cripple cutter visit [] Patient/Family/Request visit [] Outpatient visit [] Follow-up visit [] Physician referral [] Code/Alert [] Routine visit [] Staff referral [] Actively dying [x] Patient sleeping [] Family support [] [] Out of room [] Palliative care [] [] Receiving care in room [] Pre-surgical visit [] Trauma [] Long length of stay [] ICU visit [] Other: Relational/Emotional Strength [] Patient feels connected with others/family/visitors/staff [] Distress [] Loneliness/isolation [] Abandonment Spirituality of Patient [] Person of Melva [] Attends Quaker of their Melva [] Believes in Prayer [] Reads Bible or Moravian materials [] There are Spiritual issues to be addressed Inside Technical Sales Representative Interventions [] Prayer [] Active listening [] Non-anxious presence [] Spiritual/emotional support [] Crisis/trauma care [] Spiritual counseling [] Bereavement support [] Provided bereavement packet [] Provided Bible/devotional materials [] Provided toy/stuffed animal, coloring book to patient or family member [] Provided Communion [] Anointing/[place] [] Salvation [] Completed spiritual assessment [] Other: Impact on Illness or Injury [] Angry [] Fearful [] Anxious [] Often cries [] Exhaustion [] Unable to work [] Unable to attend mosque [] Unable to walk/stand [] Unable to read [] Unable to drive [] Unable to eat/drink [] Unable to sleep [] Unable to be with family [] Patient intubated [] Other: Summary x 2 Time spent with patient
[2024-04-29 11:14] LABS: Glucose Point of Care 174 mg/dL (70-110)
--- NOTE | 2024-04-29 11:42 | PC.OT ---
OT EVALUATION ATTEMPTED WITH PATIENT SLEEPING SOUNDLY; WILL ATTEMPT AGAIN AT LATER TIME.
--- NOTE | 2024-04-29 13:53 | P.PN_ITS ---
Subjective 2 Subjective: Patient was seen this morning, he is alert oriented x 3, following all commands, he has worked with physical therapy, no fevers overnight, he does report that his lower extremity weakness is improving, he is able to with the help of physical therapy and me, move up in bed, Vitals/I&O/Wt Last Vital Signs Temp 98.3 F 04/29/24 11:38 Pulse 100 04/29/24 13:38 Resp 16 04/29/24 11:38 BP 114/78 04/29/24 11:38 Pulse Ox 95 04/29/24 11:38 O2 Del Method Room Air 04/29/24 11:38 04/28/24 04/29/24 04/29/24 22:59 06:59 14:59 Intake Total 1120 / 1610 907.5 / 907.5 Output Total 1000 / 2100 350 / 2450 550 / 550 Balance 120 / -490 -350 / -840 357.5 / 357.5 Weight last 48 hrs Weight 97.664 kg Weight 97.159 kg Physical Exam 2 Const: COMMON NORMALS: no acute distress and patient oriented x3 Resp: COMMON NORMALS: normal respiratory effort, No retractions, No use of accessory muscles and clear to auscultation bilaterally AUSCULTATION: clear to auscultation bilaterally Cardio: COMMON NORMALS: regular rate, regular rhythm, S1 normal heart sound present and S2 normal heart sound present RATE: regular rate RHYTHM: r egular rhythm HEART SOUNDS: S1 normal heart sound present and S2 normal heart sound present GI: COMMON NORMALS: Normal to inspection, nondistended, normoactive bowel sounds present and non-tender Extremity: COMMON NORMALS: no pedal edema Neuro: COMMON NORMALS: patient oriented x3 Psych: COMMON NORMALS: mental status grossly normal Data 04/29/24 05:25 04/29/24 05:25 Micro: Microbiology 04/27/24 15:05 Blood Culture - Preliminary Blood NEGATIVE TO DATE 04/27/24 14:56 Blood Culture - Preliminary Blood NEGATIVE TO DATE 04/27/24 15:09 Urine Culture - Preliminary Urine Kidney Gram Negative Rods A&P Assessment and plan (1) Discitis of lumbar region: (2) Vertebral osteomyelitis, acute: (3) Intractable back pain: Plan Lumbar vertebral discitis, with vertebral osteomyelitis MR/MR lumbar spine wo/w con [id number] IMPRESSION: 1. Interval development of discitis centered at the L3-4 level with endplate osteomyelitis described above. 2. Diffuse paravertebral soft tissue enhancement worse at the L3-4 levels. 3. Small amount of thin ventral epidural enhancement and thickening likely due to developing phlegmon/abscess at the L3-4 levels. No high-grade central canal stenosis. 4. Chronic disc space narrowing L2-3 is unchanged. Plan ? Orthopedic spine service, plan on OR today for biopsy/cultures ?Infectious disease consultation -Continue meropenem ? Monitor inflammatory markers ? Blood cultures, so far negative ? Urine cultures gram-negative rods -Type 2 diabetes mellitus, monitor moderate dose scale, Lantus 30 units every 24 hours -Pain control Dilaudid 1 mg IV push every 4 hours -Continue gabapentin -Bilateral nephrostomy tubes, history of UTIs will get urinalysis, urine culture pending ? Has a history of atrial fibrillation, -Will hold Xarelto for now, will resume after procedure ?full code -lovenox for dvt prophylaxis, SCDs -Plan for today ? Will monitor closely, continue meropenem, continue Dilaudid for pain control, plan on surgical biopsy for cultures today Attestations 2 Medical Necessity Statement*: Patient requires hospitalization for discitis/vertebral osteomyelitis Diagnoses Discitis of lumbar region M46.46 Vertebral osteomyelitis, acute M46.20 Intractable back pain M54.9
[2024-04-29 16:35] LABS: Glucose Point of Care 148 mg/dL (70-110)
[2024-04-29] MEDS: sodium chloride 0.9% 1,000 ML 30 ML IV (16:35)
--- NOTE | 2024-04-29 17:00 | XR_ITS ---
WS: [id number] C-ARM RADIOGRAPHS LUMBAR SPINE; 6 IMAGES HISTORY: L4 BONE BIOPSY; OR PICS COMPARISON: 04/27/2024 Intraoperative imaging during biopsy of the L4 vertebral body. There is a marker at the site of the b iopsy at the L4 level. Images are not labeled LEFT or RIGHT. XR/XR lumbar spine 2-3V* [id number] IMPRESSION: Intraoperative imaging during biopsy at L4.
--- NOTE | 2024-04-29 17:18 | ANES.PREANE2 ---
Pre-Anesthetic Assessment Height/Weight: Height 1.83 m Weight 97.664 kg Temp Pulse Resp BP Pulse Ox O2 Del Method 97.0 F L 118 H 18 107/79 96 Room Air 04/29/24 16:24 04/29/24 16:24 04/29/24 16:24 04/29/24 16:24 04/29/24 16:24 04/29/24 16:24 Operation Date: 04/29/24 12:55 Proposed Procedures p Lumbar Biopsy - L4(Not Applicable) - Aldo Smith DO Familial anesthetic complications: None Was Beta Carmelita taken within 24 hours: N/A Was Clonidine taken within 24 hours: N/A Last intake: Intake Last Liquid Date 04/28/24 Last Liquid Time 18:00 Last Solid Date 04/28/24 Last Solid Time 12:00 Social No alcohol and No tobacco Exam alert, oriented x 3, clear to auscultation bilaterally and regular rate & rhythm Airway Mallampati: Class II Dentition: chipped CV/HEM Atrial Fibrillation Chronic Renal Insufficiency Metabolic Diabetes Mellitus Anesthetic Plan ASA status: 3 Anesthesia: General Risk of > 500 ml blood loss (7ml/kg in children): No Medications/Allergies Home Medications Medication Instructions Recorded Confirmed Last Taken Type fluticasone 100 mcg-salmeterol 50 1 inh inhalation BID 10/03/21 04/27/24 04/27/24 History mcg/dose blistr powdr for inhalation (Wixela Inhub) rosuvastatin 40 mg tablet 40 mg PO BEDTIME@12/04/21 04/27/24 04/26/24 History tamsulosin 0.4 mg capsule 0.4 mg PO BEDTIME@12/04/21 04/27/24 04/26/24 History galantamine 4 mg tablet 4 mg PO BID 05/20/23 04/27/24 04/27/24 History acetaminophen 325 mg tablet 650 mg PO Q6H PRN Pain 07/02/23 04/27/24 04/20/24 History (Tylenol) bisacodyl 10 mg rectal suppository 10 mg MS DAILY PRN Constipation 07/02/23 04/27/24 03/31/24 History (Dulcolax (bisacodyl)) finasteride 5 mg tablet 5 mg PO DAILY@07/02/23 04/27/24 04/27/24 History gabapentin 400 mg capsule 400 mg PO TID 07/02/23 04/27/24 04/27/24 History menthol 0.44 %-zinc oxide 20.6 % See Rx Instructions .Route .COMPLEX 07/02/23 04/27/24 04/26/24 History topical ointment (Calmoseptine) therapeutic multivitamin 1 tab PO DAILY@07 07/02/23 04/27/24 04/27/24 History mometasone 50 mcg/actuation nasal 1 spray intranasal BID 08/04/23 04/27/24 04/27/24 History spray insulin aspart U-100 100 unit/mL See Rx Instructions .Route 08/07/23 04/27/24 04/26/24 Rx (3 mL) subcutaneous pen (Novolog .COMPLEX #15 mL FlexPen U-100 Insulin aspart) flash glucose scanning reader #1 ea 08/25/23 04/27/24 Unknown Rx (FreeStyle Jimi 2 [place]) FreeStyle Jimi 2 Sensor (flash #6 ea 12/11/23 04/27/24 Unknown Rx glucose sensor) blood-glucose meter,continuous #1 ea 02/08/24 04/27/24 Unknown Rx (Dexcom G7 [employer]) blood-glucose sensor (Dexcom G7 #3 ea 02/08/24 04/27/24 Unknown Rx Sensor device) albuterol sulfate 90 mcg/actuation 2 puff inhalation Q4H PRN Dyspnea 04/27/24 04/27/24 06/22/23 History aerosol inhaler amiodarone 200 mg tablet (Pacerone) 200 mg PO DAILY 04/27/24 04/27/24 04/27/24 History buspirone 10 mg tablet 10 mg PO BID PRN Anxiety 04/27/24 04/27/24 04/26/24 History docusate sodium 100 mg capsule 100 mg PO BID 04/27/24 04/27/24 04/27/24 History (Colace) furosemide 20 mg tablet 20 mg PO DAILY 04/27/24 04/27/24 04/27/24 History hydrocodone 5 mg-acetaminophen 325 1 tab PO Q6H PRN Pain 04/27/24 04/27/24 04/26/24 History mg tablet insulin glargine 100 unit/mL (3 60 unit SUBCUT Q24H 04/27/24 04/27/24 04/26/24 History mL) subcutaneous pen (Lantus Solostar U-100 Insulin) metoprolol tartrate 50 mg tablet 100 mg PO BID 04/27/24 04/27/24 04/27/24 History pantoprazole 40 mg tablet,delayed 40 mg PO BID 04/27/24 04/27/24 04/27/24 History release potassium chloride 10 mEq 10 meq PO DAILY 04/27/24 04/27/24 04/27/24 History tablet,extended release tramadol 50 mg tablet 50 mg PO Q6H PRN Pain 04/27/24 04/27/24 04/26/24 History Allergies Allergy/AdvReac Type Severity Reaction Status Date / Time pollen extracts Allergy Unknown Verified 04/27/24 10:20 Current Medications Generic Name Dose Route Start Last Admin Trade Name Freq PRN Reason Stop Dose Admin Acetaminophen 650 mg 04/27/24 16:30 04/28/24 21:21 Acetaminophen 325 Mg Tablet PO 650 mg Q6H PRN Administration Pain Amiodarone HCl 200 mg 04/28/24 09:00 04/29/24 09:22 Amiodarone 200 Mg Tablet PO 200 mg DAILY ROSALBA Administration Atorvastatin Calcium 40 mg 04/27/24 19:00 04/28/24 21:22 Atorvastatin 40 Mg Tablet PO 40 mg BEDTIME@19 ROSALBA Administration Docusate Sodium 100 mg 04/27/24 18:00 04/29/24 09:22 Docusate Sodium 100 Mg Capsule PO 100 mg BID ROSALBA Administration Finasteride 5 mg 04/28/24 07:00 04/29/24 06:10 Finasteride 5 Mg Tablet PO 5 mg DAILY@07 ROSALBA Administration Furosemide 20 mg 04/28/24 09:00 04/29/24 09:22 Furosemide 20 Mg Tablet PO 20 mg DAILY ROSALBA Administration Gabapentin 400 mg 04/27/24 21:00 04/29/24 15:12 Gabapentin 400 Mg Capsule PO Not Given TID ROSALBA Hydromorphone HCl 0.5 mg 04/29/24 08:31 04/29/24 09:29 Hydromorphone 1 Mg/Ml Inj 1 Ml IVP 0.5 mg Q4H PRN Administration PAIN Sodium Chloride 1,000 mls @ 30 mls/hr 04/29/24 16:30 04/29/24 16:35 Sodium Chloride 0.9% IV 04/30/24 16:29 30 mls/hr .Q24H ROSALBA Administration Insulin Human Lispro 0 unit 04/27/24 18:00 04/29/24 12:24 Insulin Lispro 100 Unit/1 Ml SUBCUT Not Given WM&BEDTIME ROSALBA Protocol Meropenem 500 mg 04/27/24 23:00 04/29/24 15:11 Meropenem 500 Mg Sdv IVP 500 mg Q8H ROSALBA Administration Protocol Multivitamins Therapeutic 1 tab 04/28/24 07:00 04/29/24 06:10 Multivitamin Therapeutic Tablet PO 1 tab DAILY@07 ROSALBA Administration Pantoprazole Sodium 40 mg 04/27/24 18:00 04/29/24 09:[address] 40 Mg Tablet PO 40 mg BID ROSALBA Administration Potassium Chloride 10 meq 04/28/24 09:00 04/29/24 09:22 Potassium Chloride Er 10 Meq Tablet PO 10 meq DAILY ROSALBA Administration Tamsulosin HCl 0.4 mg 04/27/24 19:00 04/28/24 21:22 Tamsulosin 0.4 Mg Capsule PO 0.4 mg BEDTIME@19 ROSALBA Administration [facility] Anesthesia Medical History Yeast UTI Hematuria due to acute cystitis Mild cognitive impairment with memory loss Bacteriuria Alzheimer disease 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 mellitus History of Doppler ultrasound 08/2021 venous no DVT BLE 08/2021 arterial patent vessels, left posterior tibial may be less than 60% stenosis, left dorsalis pedis not visualized Gait instability SARS-CoV-2 positive positive test 11/17/2021 symptoms weakness, hypoglycemia, altered mental status and low grade fever Anemia Intermittent self-catheterization of bladder due to urinary retention History of sleep study 02/22 limited sleep, no apnea noted but did have nocturnal hypoxemia, recommended to use nocturnal oxygen History of electromyography 01/23 Interpretation: The study provides electrodiagnostic evidence for an axonal sensorimotor polyneuropathy based on small or absent CMAPs and SNAPs with denervation seen distally on EMG. The study is limited for evaluation of lumbar radiculopathy related to the patient's anticoagulated state. History of echocardiogram 05/2021 EF 65% History of cardiovascular stress test 05/2021 normal EKG response, perfusion study without findings of ischemia Diabetes mellitus, type II Chronic anticoagulation Taken off Xarelto secondary to hematuria BPH loc w urin obs/LUTS Obstructive pyelonephritis 09/2021 required ureteral stent placement Left ureteral calculus Diabetic foot ulcer 08/2021 - treated with I&D, antibiotics and wound care clinic management Lumbar stenosis with neurogenic claudication 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 mellitus Cervicalgia of veprglqw-vrmavya-tjpzw region Lumbar stenosis L2/3, L3/4, L4/L5, with radiculopathy right lower extremity H/O prostate cancer Obstructive sleep apnea Refuses CPAP HTN (hypertension) previously on treatment for high blood pressure Atrial fibrillation Surgical History Status post excisional debridement 08/2021 left foot History of laminectomy 03/25 bilateral with partial facetectomies at L2-3, L3-4, L4-[address] Other postprocedural status history of radiofrequency ablation for back pain x 2 Status post laser lithotripsy of ureteral calculus (11/06/21) S/P ureteral stent placement (09/2021) subsequent removal H/O esophagogastroduodenoscopy (10/30/21) 10/2021 pedunculated polyps removed from first portion of duodenum, otherwise normal History of colonoscopy (10/30/21) 11/2021 diverticulosis of sigmoid colon and internal hemorrhoids, sessile polyps removed History of back surgery S/P tonsillectomy S/P appendectomy History of pilonidal cyst Family History Grandmother Heart disease Hypertension Grandfather Hypertension MATERNAL Diabetes Mother No problems noted. Father No problems noted. 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 Data Anesthesia 04/29/24 05:25 04/29/24 05:25 Short CBC 04/28/24 04/29/24 Range/Units 04:39 05:25 WBC 11.51 H 10.21 (3.29-11.43) 10^3/uL Hgb 8.90 L 9.50 L (11.27-16.99) g/dL Hct 30.3 L 32.5 L (37-53) % MCV 81.5 L 82.1 (82-101) fl Plt Count 452 H 487 H (157-399) 10^3/cmm Neut % (Auto) 65.2 64.3 % Neut # (Auto) 7.51 6.57 (1.8-7.7) 10^3/uL BMP 04/28/24 04/29/24 04:39 05:25 Sodium 140 138 Potassium 4.3 4.2 Chloride 106 103 Carbon Dioxide 23 23 BUN 22 23 Creatinine 1.5 H 1.5 H Glucose 85 162 H Calcium 8.7 8.9 Coags 04/27/24 16:26 PT 15.50 H INR 1.19 Microbiology 04/27/24 15:09 Urine Culture - Final Urine Kidney Pseudomonas aeruginosa 04/27/24 15:05 Blood Culture - Preliminary Blood NEGATIVE TO DATE 04/27/24 14:56 Blood Culture - Preliminary Blood NEGATIVE TO DATE Cardiac Studies: Echocardiogram 08/03/23 Echocardiogram Ultrasound 05/08/20 Sestamibi Stress Test (Cardiology) 05/07/20
[2024-04-29] MEDS: lidocaine-epi 2% PF 1:200,000 20 mL SDV XX (17:19)
--- NOTE | 2024-04-29 18:10 | PM.OP ---
Operative Report Date of procedure: April 29, 2024 Pre-op diagnosis: Osteomyelitis of the L4 endplate Post-op diagnosis: same Procedure done: Biopsy of the L4 endplate Pathology: Culture sent Surgeon: Aldo Smith DO Estimated blood loss (mL): 5 Procedure: Biopsy of the L4 endplate Patient will demonstrate after going anesthesia patient was placed in the prone position. All areas impingement well-padded. Patient's prepped draped also fashion. Skin incision made over the L4 pedicle. The awl was inserted the lateral edge of the L4 pedicle on the left side. The awl was malleted into the pedicle. This was followed on AP and lateral fluoroscopy. Once the awl was already into the vertebral body a biopsy call was taken from the L4 endplate. The scope was then taken for cultures and sensitivity. Blood was aspirated from this area as well this was also sent and aerobic and anaerobic cultures were taken as well. Wounds were irrigated and closed with nylon suture. Sterile dressings applied patient transferred to the PACU in stable condition.
--- NOTE | 2024-04-29 18:36 | SUR.OPER ---
dressing changed on bilateral stomas.
--- NOTE | 2024-04-29 18:55 | ANE.PACU2 ---
Inpatient post-anesthesia follow up: Airway intact: Yes Vital signs: Temperature 97.6 F Pulse Rate 106 Respiratory Rate 18 Blood Pressure 126/81 Pulse Oximetry 94 Oxygen Delivery Me thod Room Air Oxygen Flow Rate 2 Fraction of Inspir ed Oxygen Hydration adequate: Yes Nausea and vomiting: No Pain level: 1 Mental status: Baseline
[2024-04-29] MEDS: lactated ringers 1,000 ML 90 ML IV (19:28)
[2024-04-29] MEDS: ceFAZolin 2,000 mg SDV 2000 MG IVP (19:30)
[2024-04-29 21:28] LABS: Glucose Point of Care 224 mg/dL (70-110)
[2024-04-29] MEDS: insulin lispro 100 unit/1 mL SUBCUT (22:01)
[2024-04-29] MEDS: water for injection-sterile 10 ML (22:58)
[2024-04-30] VITALS (18 sets, daily range): BP systolic 98–128; BP diastolic 62–79; PULSE 85–112; RESP 16–18; TEMP 36.6–36.9; O2SAT 91–96
[2024-04-30] MEDS: ceFAZolin 2,000 mg SDV 2000 MG IVP ×2 (02:27→10:07)
[2024-04-30 03:45] LABS: Basophils % 0.1 %; Hematocrit 30.8 % (37-53); Lymphocytes # 0.7 10^3/uL (0.8-4.8); Lymphocytes % 10.1 %; Mean Corpuscular HGB Conc 29.2 g/dL (30-55); Mean Corpuscular Hemoglobin 23.9 pg (27-33); Mean Corpuscular Volume 81.9 fl (82-101); Mean Platelet Volume 10.1 fL (7.4-10.4); Monocytes # 0.1 10^3/uL (0.2-0.9); Neutrophils # 6.15 10^3/uL (1.8-7.7); Neutrophils % 87.5 %; Nucleated Red Blood Cells % 0 %; Platelet Count 431 10^3/cmm (157-399); Red Blood Count 3.76 10^6/uL (3.85-5.65); White Blood Count 7.03 10^3/uL (3.29-11.43)
[2024-04-30 04:16] LABS: Anion Gap 17.5 (5-19); Blood Urea Nitrogen 24 mg/dL (8-23); Calcium 8.4 mg/dL (8.5-10.5); Carbon Dioxide 22 mmol/L (22-29); Chloride 100 mmol/L (98-107); Creatinine Clr Calc Pharmacy 55.2149; Glucose 268 mg/dL (65-115); Osmolality Calculated 293 mOsm/kg (285-295); Potassium 4.5 mmol/L (3.5-5.1); Sodium 135 mmol/L (136-145)
[2024-04-30] MEDS: multivitamin therapeutic Tablet 1 TAB PO (06:23)
[2024-04-30] MEDS: finasteride 5 mg Tablet PO (06:23)
[2024-04-30] MEDS: meropenem 500 mg SDV IVP ×2 (06:24→15:02)
[2024-04-30] MEDS: lactated ringers 1,000 ML 90 ML IV (06:24)
[2024-04-30 06:30] LABS: Glucose Point of Care 267 mg/dL (70-110)
[2024-04-30] MEDS: docusate sodium 100 mg Capsule PO ×2 (08:40→17:47)
[2024-04-30] MEDS: pantoprazole DR 40 mg Tablet PO ×2 (08:40→17:47)
[2024-04-30] MEDS: amiodarone 200 mg Tablet PO (08:40)
[2024-04-30] MEDS: potassium chloride ER 10 mEq Tablet PO (08:40)
[2024-04-30] MEDS: FUROsemide 20 mg Tablet PO (08:40)
[2024-04-30] MEDS: gabapentin 400 mg Capsule PO ×3 (08:40→20:24)
[2024-04-30] MEDS: insulin lispro 100 unit/1 mL SUBCUT ×4 (08:44→20:50)
[2024-04-30] MEDS: HYDROmorphone 1 mg/mL INJ 1 mL 0.5 MG IVP ×2 (08:46→22:59)
--- NOTE | 2024-04-30 10:14 | P.PN_ITS ---
Subjective 2 Subjective: Patient's resting bed comfortably. Low back pain is sore. Vitals/I&O/Wt Last Vital Signs Temp 98.1 F 04/30/24 07:42 Pulse 90 04/30/24 07:42 Resp 18 04/30/24 07:42 BP 117/74 04/30/24 07:42 Pulse Ox 91 04/30/24 07:42 O2 Del Method Room Air 04/30/24 07:42 O2 Flow Rate 2 04/29/24 19:39 04/29/24 04/30/24 04/30/24 22:59 06:59 14:59 Intake Total 50 / 957.5 994 / 1951.5 240 / 240 Output Total 2302 / 2852 200 / 3052 Balance -2252 / -1894.5 794 / -1100.5 240 / 240 Weight last 48 hrs Weight 221 lb 8 oz Weight 215 lb 5 oz Physical Exam 2 Narrative: Resting in bed comfortably. Data 04/30/24 02:37 04/30/24 02:37 Micro: Microbiology 04/27/24 15:09 Urine Culture - Final Urine Kidney Pseudomonas aeruginosa A&P Assessment and plan (1) Vertebral osteomyelitis, acute: Postop day #1 from biopsy of the L4 vertebra superior endplate. Follow-up Ortho clinic in 2 weeks Await cultures and sensitivity Attestations 2 Medical Necessity Statement*: Per primary service Coding Level of Care Code Acute Code for [facility] Fwd Diagnoses Vertebral osteomyelitis, acute M46.20
--- NOTE | 2024-04-30 10:30 | PC.NURSE ---
Patient had 300 ml from right urostomy and 200 ml from left urostomy
[2024-04-30 11:32] LABS: Glucose Point of Care 266 mg/dL (70-110)
--- NOTE | 2024-04-30 16:13 | P.PN_ITS ---
Subjective 2 Subjective: Patient was seen this morning, he does report pain but it is under control with Dilaudid, no fevers overnight, no chills Vitals/I&O/Wt Last Vital Signs Temp 98.2 F 04/30/24 15:42 Pulse 93 04/30/24 15:42 Resp 17 04/30/24 15:42 BP 128/79 04/30/24 15:42 Pulse Ox 95 04/30/24 15:42 O2 Del Method Room Air 04/30/24 11:56 O2 Flow Rate 2 04/29/24 19:39 04/30/24 04/30/24 04/30/24 06:59 14:59 22:59 Intake Total 994 / 1951.5 480 / 480 Output Total 200 / 3052 500 / 500 Balance 794 / -1100.5 -20 / -20 Weight last 48 hrs Weight 100.471 kg Weight 97.664 kg Physical Exam 2 Const: COMMON NORMALS: no acute distress and patient oriented x3 Resp: COMMON NORMALS: normal respiratory effort, No retractions, No use of accessory muscles and clear to auscultation bilaterally AUSCULTATION: clear to auscultation bilaterally Cardio: COMMON NORMALS: regular rate, regular rhythm, S1 normal heart sound present and S2 normal heart sound present RATE: regular rate RHYTHM: r egular rhythm HEART SOUNDS: S1 normal heart sound present and S2 normal heart sound present GI: COMMON NORMALS: Normal to inspection, nondistended, normoactive bowel sounds present, Soft to palpation and non-tender PALPATION: Yes Soft to palpation Extremity: COMMON NORMALS: no pedal edema Neuro: COMMON NORMALS: patient oriented x3 Psych: COMMON NORMALS: mental status grossly normal Data 04/30/24 02:37 04/30/24 02:37 Micro: Microbiology 04/29/24 17:55 Gram Stain - Final Back Anaerobic Culture - Preliminary Wound Culture - Preliminary Tissue Culture - Preliminary 04/27/24 15:09 Urine Culture - Final Urine Kidney Pseudomonas aeruginosa A&P Assessment and plan (1) Discitis of lumbar region: (2) Vertebral osteomyelitis, acute: (3) Intractable back pain: Plan Lumbar vertebral discitis, with vertebral osteomyelitis MR/MR lumbar spine wo/w con [id number] IMPRESSION: 1. Interval development of discitis centered at the L3-4 level with endplate osteomyelitis described above. 2. Diffuse paravertebral soft tissue enhancement worse at the L3-4 levels. 3. Small amount of thin ventral epidural enhancement and thickening likely due to developing phlegmon/abscess at the L3-4 levels. No high-grade central canal stenosis. 4. Chronic disc space narrowing L2-3 is unchanged. Plan ? Orthopedic spine service, status post biopsy ? Gram stain and cultures pending ?Infectious disease consultation -Continue meropenem ? Monitor inflammatory markers ? Blood cultures, so far negative ? Urine cultures gram-negative rods -Type 2 diabetes mellitus, monitor moderate dose scale, Lantus 30 units every 24 hours -Pain control Dilaudid 1 mg IV push every 4 hours -Continue gabapentin -Bilateral nephrostomy tubes, history of UTIs will get urinalysis, urine culture pending ? Has a history of atrial fibrillation, -Resume Xarelto tonight ?full code -lovenox for dvt prophylaxis, SCDs -Plan for today ? Will monitor closely, continue meropenem, continue Dilaudid for pain control, follow surgical cultures Attestations 2 Medical Necessity Statement*: Patient requires hospitalization for lumbar vertebral discitis, vertebral osteomyelitis Diagnoses Discitis of lumbar region M46.46 Vertebral osteomyelitis, acute M46.20 Intractable back pain M54.9
[2024-04-30 16:43] LABS: Glucose Point of Care 205 mg/dL (70-110)
[2024-04-30] MEDS: cefepime 2,000 MG in sodium chloride 0.9% (plus) 50 ML 100 MG IV (17:46)
[2024-04-30] MEDS: rivaroxaban 10 mg Tablet 20 MG PO (17:47)
[2024-04-30] MEDS: atorvastatin 40 mg Tablet PO (20:24)
[2024-04-30] MEDS: tamsulosin 0.4 mg Capsule PO (20:25)
[2024-04-30] MEDS: oxyCODONE 5 mg IR Tab/Cap PO (20:28)
[2024-04-30 20:47] LABS: Glucose Point of Care 307 mg/dL (70-110)
[2024-05-01] VITALS (14 sets, daily range): BP systolic 100–111; BP diastolic 66–73; PULSE 86–116; RESP 16–19; TEMP 36.4–36.8; O2SAT 93–95
[2024-05-01] MEDS: cefepime 2,000 MG in sodium chloride 0.9% (plus) 50 ML 100 MG IV ×2 (05:00→18:28)
[2024-05-01] MEDS: oxyCODONE 5 mg IR Tab/Cap PO ×2 (05:11→09:41)
[2024-05-01 05:17] LABS: Basophils # 0.1 10^3/uL (0.0-0.1); Basophils % 0.6 %; Eosinophils # 0.4 10^3/uL (0.0-0.8); Eosinophils % 3.7 %; Hematocrit 31.3 % (37-53); Lymphocytes # 2.8 10^3/uL (0.8-4.8); Lymphocytes % 23.7 %; Mean Corpuscular Volume 80.1 fl (82-101); Mean Platelet Volume 9.3 fL (7.4-10.4); Monocytes % 8.3 %; Neutrophils # 7.35 10^3/uL (1.8-7.7); Neutrophils % 63.2 %; Nucleated Red Blood Cells % 0 %; Platelet Count 482 10^3/cmm (157-399); Red Blood Count 3.91 10^6/uL (3.85-5.65); Red Cell Distribution Width 17.2 % (12.1-15.1); White Blood Count 11.64 10^3/uL (3.29-11.43)
[2024-05-01 05:58] LABS: Anion Gap 16.7 (5-19); Blood Urea Nitrogen 24 mg/dL (8-23); C Reactive Protein 25.1 mg/L (0.0-4.9); Calcium 8.6 mg/dL (8.5-10.5); Carbon Dioxide 25 mmol/L (22-29); Chloride 100 mmol/L (98-107); Glucose 192 mg/dL (65-115); Osmolality Calculated 295 mOsm/kg (285-295); Potassium 3.7 mmol/L (3.5-5.1); Sodium 138 mmol/L (136-145)
[2024-05-01] MEDS: finasteride 5 mg Tablet PO (06:14)
[2024-05-01] MEDS: multivitamin therapeutic Tablet 1 TAB PO (06:14)
[2024-05-01 06:35] LABS: Glucose Point of Care 215 mg/dL (70-110)
[2024-05-01] MEDS: amiodarone 200 mg Tablet PO (08:04)
[2024-05-01] MEDS: pantoprazole DR 40 mg Tablet PO ×2 (08:04→18:28)
[2024-05-01] MEDS: docusate sodium 100 mg Capsule PO ×2 (08:05→18:28)
[2024-05-01] MEDS: insulin lispro 100 unit/1 mL SUBCUT ×4 (08:05→22:46)
[2024-05-01] MEDS: FUROsemide 20 mg Tablet PO (08:05)
[2024-05-01] MEDS: potassium chloride ER 10 mEq Tablet PO (08:05)
[2024-05-01] MEDS: gabapentin 400 mg Capsule PO ×3 (08:05→20:22)
[2024-05-01] MEDS: metoprolol tartrate 25 mg Tablet PO (10:33)
[2024-05-01 11:05] LABS: Glucose Point of Care 253 mg/dL (70-110)
--- NOTE | 2024-05-01 15:50 | P.PN_ITS ---
Subjective 2 Subjective: Patient was seen this morning, denies any fevers, no chills, his strength in his lower extremities is improving Vitals/I&O/Wt Last Vital Signs Temp 97.8 F 05/01/24 12:00 Pulse 103 H 05/01/24 12:00 Resp 17 05/01/24 12:00 BP 111/73 05/01/24 12:00 Pulse Ox 94 05/01/24 11:38 O2 Del Method Room Air 05/01/24 08:02 O2 Flow Rate 2 04/29/24 19:39 05/01/24 05/01/24 05/01/24 06:59 14:59 22:59 Intake Total 50 / 1700 200 / 200 Output Total 250 / 1900 450 / 450 Balance -200 / -200 -250 / -250 Weight last 48 hrs Weight 101.208 kg Weight 100.471 kg Physical Exam 2 Const: COMMON NORMALS: no acute distress and patient oriented x3 Resp: COMMON NORMALS: normal respiratory effort, No retractions, No use of accessory muscles and clear to auscultation bilaterally AUSCULTATION: clear to auscultation bilaterally Cardio: COMMON NORMALS: regular rate, regular rhythm, S1 normal heart sound present and S2 normal heart sound present RATE: regular rate RHYTHM: r egular rhythm HEART SOUNDS: S1 normal heart sound present and S2 normal heart sound present GI: COMMON NORMALS: Normal to inspection, nondistended, normoactive bowel sounds present and non-tender Extremity: COMMON NORMALS: no pedal edema Neuro: COMMON NORMALS: patient oriented x3 Psych: COMMON NORMALS: mental status grossly normal Data 05/01/24 04:47 05/01/24 04:47 Micro: Microbiology 04/29/24 17:55 Gram Stain - Final Back Anaerobic Culture - Preliminary Wound Culture - Preliminary Tissue Culture - Preliminary A&P Assessment and plan (1) Discitis of lumbar region: (2) Vertebral osteomyelitis, acute: (3) Intractable back pain: Plan Lumbar vertebral discitis, with vertebral osteomyelitis MR/MR lumbar spine wo/w con [id number] IMPRESSION: 1. Interval development of discitis centered at the L3-4 level with endplate osteomyelitis described above. 2. Diffuse paravertebral soft tissue enhancement worse at the L3-4 levels. 3. Small amount of thin ventral epidural enhancement and thickening likely due to developing phlegmon/abscess at the L3-4 levels. No high-grade central canal stenosis. 4. Chronic disc space narrowing L2-3 is unchanged. Plan ? Orthopedic spine service, status post biopsy ? Gram stain and cultures pending ?Infectious disease consultation -Switch to cefepime ? Monitor inflammatory markers ? Blood cultures, so far negative ? Urine cultures gram-negative rods, Pseudomonas, resistant to meropenem, switch to cefepime -Type 2 diabetes mellitus, monitor moderate dose scale, Lantus 30 units every 24 hours -Pain control Dilaudid 1 mg IV push every 4 hours -Continue gabapentin -Bilateral nephrostomy tubes, history of UTIs will get urinalysis, urine culture pending ? Has a history of atrial fibrillation, -Resume Xarelto tonight ?full code -lovenox for dvt prophylaxis, SCDs -Plan for today ? Will monitor closely, continue meropenem, follow surgical cultures Attestations 2 Medical Necessity Statement*: Patient requires hospitalization for lumbar vertebral discitis, vertebral osteomyelitis, status post surgical invention, on IV antibiotics, with UTI Pseudomonas Diagnoses Discitis of lumbar region M46.46 Vertebral osteomyelitis, acute M46.20 Intractable back pain M54.9
[2024-05-01 17:23] LABS: Glucose Point of Care 241 mg/dL (70-110)
[2024-05-01] MEDS: rivaroxaban 10 mg Tablet 20 MG PO (18:28)
[2024-05-01] MEDS: tamsulosin 0.4 mg Capsule PO (20:22)
[2024-05-01] MEDS: atorvastatin 40 mg Tablet PO (20:22)
[2024-05-01 21:21] LABS: Glucose Point of Care 265 mg/dL (70-110)
[2024-05-02] VITALS (11 sets, daily range): BP systolic 102–126; BP diastolic 68–82; PULSE 96–119; RESP 15–20; TEMP 36.4–37; O2SAT 91–94
[2024-05-02] MEDS: cefepime 2,000 MG in sodium chloride 0.9% (plus) 50 ML 100 MG IV ×2 (04:41→17:24)
[2024-05-02 05:11] LABS: Basophils # 0.1 10^3/uL (0.0-0.1); Basophils % 0.9 %; Eosinophils # 0.7 10^3/uL (0.0-0.8); Eosinophils % 6.2 %; Hematocrit 29.8 % (37-53); Lymphocytes # 2.7 10^3/uL (0.8-4.8); Lymphocytes % 25.9 %; Mean Corpuscular HGB Conc 29.5 g/dL (30-55); Mean Corpuscular Hemoglobin 23.8 pg (27-33); Mean Corpuscular Volume 80.8 fl (82-101); Monocytes # 0.9 10^3/uL (0.2-0.9); Monocytes % 8.2 %; Neutrophils # 6.15 10^3/uL (1.8-7.7); Neutrophils % 58.3 %; Nucleated Red Blood Cells % 0 %; Platelet Count 414 10^3/cmm (157-399); Red Blood Count 3.69 10^6/uL (3.85-5.65); Red Cell Distribution Width 17.2 % (12.1-15.1); White Blood Count 10.55 10^3/uL (3.29-11.43)
[2024-05-02 05:29] LABS: Anion Gap 14.8 (5-19); Blood Urea Nitrogen 26 mg/dL (8-23); Calcium 8.2 mg/dL (8.5-10.5); Carbon Dioxide 25 mmol/L (22-29); Chloride 104 mmol/L (98-107); Creatinine Clr Calc Pharmacy 71.2098; Glucose 128 mg/dL (65-115); Osmolality Calculated 296 mOsm/kg (285-295); Potassium 3.8 mmol/L (3.5-5.1); Sodium 140 mmol/L (136-145)
[2024-05-02 05:35] LABS: Procalcitonin 0.13 ng/mL (0-0.5)
[2024-05-02 05:44] LABS: C Reactive Protein 24.9 mg/L (0.0-4.9)
[2024-05-02] MEDS: multivitamin therapeutic Tablet 1 TAB PO (06:04)
[2024-05-02] MEDS: finasteride 5 mg Tablet PO (06:04)
[2024-05-02 07:28] LABS: Glucose Point of Care 152 mg/dL (70-110)
[2024-05-02] MEDS: pantoprazole DR 40 mg Tablet PO ×2 (08:51→17:25)
[2024-05-02] MEDS: insulin lispro 100 unit/1 mL SUBCUT ×4 (08:51→21:29)
[2024-05-02] MEDS: oxyCODONE 5 mg IR Tab/Cap PO ×3 (08:52→21:29)
[2024-05-02] MEDS: gabapentin 400 mg Capsule PO ×3 (08:52→20:40)
[2024-05-02] MEDS: amiodarone 200 mg Tablet PO (08:53)
[2024-05-02] MEDS: FUROsemide 20 mg Tablet PO (08:53)
[2024-05-02] MEDS: potassium chloride ER 10 mEq Tablet PO (08:53)
[2024-05-02] MEDS: docusate sodium 100 mg Capsule PO ×2 (08:54→17:24)
--- NOTE | 2024-05-02 09:58 | PC.CHAP ---
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 tennis court attendant visit [] Patient/Family/Request visit [] Outpatient visit [] Follow-up visit [] Physician referral [] Code/Alert [x] Routine visit [] Staff referral [] Actively dying [] Patient sleeping [] Family support [] [] Out of room [] Palliative care [] [] Receiving care in room [] Pre-surgical visit [] Trauma [] Long length of stay [] ICU visit [] Other: Relational/Emotional Strength [] Patient feels connected with others/family/visitors/staff [] Distress [] Loneliness/isolation [] Abandonment Spirituality of Patient [x] Person of Melva [] Attends Holiness of their Melva [x] Believes in Prayer [] Reads Bible or Druze materials [] There are Spiritual issues to be addressed 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 Driver Interventions [x] Prayer [x] Active listening [] Non-anxious presence [] Spiritual/emotional support [] Crisis/trauma care [] Spiritual counseling [] Bereavement support [] Provided bereavement packet [x] Provided Bible/devotional materials [] Provided toy/stuffed animal, coloring book to patient or family member [] Provided Communion [] Anointing/[place] [] Salvation [x] Completed spiritual assessment [] Other: Impact on Illness or Injury [] Angry [] Fearful [] Anxious [] Often cries [] Exhaustion [] Unable to work [] Unable to attend uatsdin [] Unable to walk/stand [] Unable to read [] Unable to drive [] Unable to eat/drink [] Unable to sleep [] Unable to be with family [] Patient intubated [] Other: Summary Time spent with patient 10 min
[2024-05-02 10:58] LABS: Glucose Point of Care 234 mg/dL (70-110)
--- NOTE | 2024-05-02 13:32 | XR_ITS ---
WS: [id number] PORTABLE CHEST HISTORY: Post PICC insertion COMPARISON: 04/01/2024 Right-sided PICC line with tip terminating at the caval atrial junction. Lungs are clear and well expanded. No pleural effusion or pneumothorax. Cardiac size: Normal. Mediastinum/Aorta: Normal mediastinum. No osseous abnormality seen. XR/XR chest 1V portable [id number] IMPRESSION: Satisfactory position RIGHT PICC line.
--- NOTE | 2024-05-02 13:48 | P.PN_ITS ---
Subjective 2 Subjective: Patient was seen this morning, has no complaints, no fevers, chills, does have blood-tinged output from urostomy, is on Xarelto, he tells me that this was an issue in the past with Xarelto had to be held, we discussed continued monitoring, he has an increased risk of DVTs and PEs, hypercoagulable events, as he remains bedbound with concerns for discitis and vertebral osteomyelitis, will continue to monitor closely Vitals/I&O/Wt Last Vital Signs Temp 98.2 F 05/02/24 12:00 Pulse 105 H 05/02/24 12:00 Resp 16 05/02/24 12:00 BP 108/79 05/02/24 12:00 Pulse Ox 93 05/02/24 12:00 O2 Del Method Room Air 05/02/24 08:55 O2 Flow Rate 2 04/29/24 19:39 05/01/24 05/02/24 05/02/24 22:59 06:59 14:59 Intake Total 290 / 490 50 / 540 480 / 480 Output Total 850 / 1300 600 / 1900 Balance -560 / -810 -550 / -1360 480 / 480 Weight last 48 hrs Weight 100.516 kg Weight 101.208 kg Physical Exam 2 Const: COMMON NORMALS: no acute distress and patient oriented x3 Resp: COMMON NORMALS: normal respiratory effort, No retractions, No use of accessory muscles and clear to auscultation bilaterally AUSCULTATION: clear to auscultation bilaterally Cardio: COMMON NORMALS: regular rate, regular rhythm, S1 normal heart sound present and S2 normal heart sound present RATE: regular rate RHYTHM: r egular rhythm HEART SOUNDS: S1 normal heart sound present and S2 normal heart sound present GI: COMMON NORMALS: Normal to inspection, nondistended, normoactive bowel sounds present and non-tender Extremity: COMMON NORMALS: no pedal edema Neuro: COMMON NORMALS: patient oriented x3 Psych: COMMON NORMALS: mental status grossly normal Skin: NARRATIVE SKIN EXAM: Bilateral urostomy is in place Data 05/02/24 04:10 05/02/24 04:10 Micro: Microbiology 04/29/24 17:55 Gram Stain - Final Back Anaerobic Culture - Preliminary Wound Culture - Final Tissue Culture - Final A&P Assessment and plan (1) Discitis of lumbar region: (2) Vertebral osteomyelitis, acute: (3) Intractable back pain: Plan Lumbar vertebral discitis, with vertebral osteomyelitis MR/MR lumbar spine wo/w con [id number] IMPRESSION: 1. Interval development of discitis centered at the L3-4 level with endplate osteomyelitis described above. 2. Diffuse paravertebral soft tissue enhancement worse at the L3-4 levels. 3. Small amount of thin ventral epidural enhancement and thickening likely due to developing phlegmon/abscess at the L3-4 levels. No high-grade central canal stenosis. 4. Chronic disc space narrowing L2-3 is unchanged. Plan ? Orthopedic spine service, status post biopsy ? Gram stain and cultures pending ?Infectious disease consultation -Switch to cefepime ? Monitor inflammatory markers ? Blood cultures, so far negative ? Urine cultures gram-negative rods, Pseudomonas, resistant to meropenem, switch to cefepime, 2 g IV push every 12 hours 6 weeks, stop date June 06, 2024 -Type 2 diabetes mellitus, monitor moderate dose scale, Lantus 30 units every 24 hours -Pain control oxycodone 5 mg p.o. every 4 hours. -Continue gabapentin -Bilateral nephrostomy tubes, history of UTIs will get urinalysis, urine culture as above ? Has a history of atrial fibrillation, -Resume Xarelto, monitor hematuria ?full code -lovenox for dvt prophylaxis, SCDs -Plan for today ? Follow surgical cultures PICC line to be placed, cefepime to be arranged, monitor for urine/hematuria, Attestations 2 Medical Necessity Statement*: Patient requires hospitalization for lumbar vertebral discitis, vertebral osteomyelitis Diagnoses Discitis of lumbar region M46.46 Vertebral osteomyelitis, acute M46.20 Intractable back pain M54.9
--- NOTE | 2024-05-02 14:58 | PICC.NOTE ---
Double lumen PICC placed to right basilic vein. Referred to vascular access nurse for PICC placement due to IV Vancomycin and Ertapenem x 6 weeks for osteo. Risks and benefits discussed and informed consent obtained from patient. Right arm assessed with right basilic vein measuring 3.3 mm, straight, and apparent best choice for placement. Using sterile technique and MST, right basilic vein accessed x 1 stick. Mid-arm circumference measured 10 cm from right AC 29 cm. Trimmed cath 47 cm with 1 cm external length noted. CXR shows tip in cavoatrial junction, in good position for use per radiologist. Line secured with stat-lock. Insertion site covered with Biopatch and TSM. Report given to bedside nurseLisa.
--- NOTE | 2024-05-02 16:31 | PC.OT ---
OT TREATMENT ATTEMPTED. PATIENT IS SLEEPING SOUNDLY.
[2024-05-02 16:54] LABS: Glucose Point of Care 255 mg/dL (70-110)
[2024-05-02] MEDS: rivaroxaban 10 mg Tablet 20 MG PO (17:25)
[2024-05-02] MEDS: tamsulosin 0.4 mg Capsule PO (20:39)
[2024-05-02] MEDS: atorvastatin 40 mg Tablet PO (20:39)
[2024-05-02 21:15] LABS: Glucose Point of Care 333 mg/dL (70-110)
[2024-05-03] VITALS (7 sets, daily range): BP systolic 113–129; BP diastolic 67–81; PULSE 105–113; RESP 16–20; TEMP 33.9–37.1; O2SAT 92–95
[2024-05-03 04:56] LABS: Basophils # 0.1 10^3/uL (0.0-0.1); Basophils % 0.8 %; Eosinophils # 0.7 10^3/uL (0.0-0.8); Eosinophils % 5.6 %; Hematocrit 28.4 % (37-53); Lymphocytes # 2.8 10^3/uL (0.8-4.8); Lymphocytes % 22.4 %; Mean Corpuscular HGB Conc 29.9 g/dL (30-55); Mean Corpuscular Hemoglobin 24.1 pg (27-33); Mean Corpuscular Volume 80.5 fl (82-101); Mean Platelet Volume 9.7 fL (7.4-10.4); Monocytes % 8.2 %; Neutrophils # 7.67 10^3/uL (1.8-7.7); Neutrophils % 62.6 %; Nucleated Red Blood Cells % 0 %; Platelet Count 389 10^3/cmm (157-399); Red Blood Count 3.53 10^6/uL (3.85-5.65); Red Cell Distribution Width 17.4 % (12.1-15.1); White Blood Count 12.27 10^3/uL (3.29-11.43)
[2024-05-03] MEDS: cefepime 2,000 MG in sodium chloride 0.9% (plus) 50 ML 100 MG IV (05:07)
[2024-05-03 05:18] LABS: C Reactive Protein 30.3 mg/L (0.0-4.9)
[2024-05-03 05:19] LABS: Blood Urea Nitrogen 26 mg/dL (8-23); Calcium 8.4 mg/dL (8.5-10.5); Carbon Dioxide 26 mmol/L (22-29); Chloride 103 mmol/L (98-107); Creatinine Clr Calc Pharmacy 71.2098; Glucose 182 mg/dL (65-115); Osmolality Calculated 297 mOsm/kg (285-295); Sodium 139 mmol/L (136-145)
[2024-05-03 05:24] LABS: Procalcitonin 0.12 ng/mL (0-0.5)
[2024-05-03 05:26] LABS: Anion Gap 14.8 (5-19); Potassium 4.8 mmol/L (3.5-5.1)
[2024-05-03 05:43] LABS: SARS Covid-2 Antigen negative (Negative)
[2024-05-03 06:06] LABS: Glucose Point of Care 197 mg/dL (70-110)
[2024-05-03] MEDS: multivitamin therapeutic Tablet 1 TAB PO (06:15)
[2024-05-03] MEDS: finasteride 5 mg Tablet PO (06:15)
--- NOTE | 2024-05-03 08:00 | PM.DCS ---
Discharge Providers Date of Admission: 04/27/24 15:24 Date of Discharge: May 03, 2024 Attending Provider at Admission: Omari Lopez MD Attending Provider at Discharge: Omari Lopez MD Primary Care Provider: Trisha Urena MD Diagnoses at Discharge Discharge Diagnosis (1) Discitis of lumbar region: Status: Acute (2) Vertebral osteomyelitis, acute: Status: Acute (3) Intractable back pain: Status: Acute Reason for Visit Reason for Visit: back pain Hospital Course Hospital Course Raphael Deal is a 74 year old male with a past medical history of type 2 diabetes mellitus, history of recurrent UTIs, history of bilateral nephrostomy tubes currently in place, managed by urology in [place], chronic pain, systolic CHF, BPH, atrial fibrillation, on Xarelto, which currently is on hold due to his nephrostomy tube placement? Who presents [facility] due to acute low back pain. Patient had nephrostomy tubes placed at [facility] about [facility], he was reporting increased back pain, after his nephrostomy tube placement, does report bilateral lower extremity weakness, he has not been able to walk for the last month he tells me, no urinary incontinence, no bowel incontinence, no saddle or perianal anesthesia, no fevers, no chills, no falls, no injuries Patient was admitted for Lumbar vertebral discitis, with vertebral osteomyelitis MR/MR lumbar spine wo/w con [id number] IMPRESSION: 1. Interval development of discitis centered at the L3-4 level with endplate osteomyelitis described above. 2. Diffuse paravertebral soft tissue enhancement worse at the L3-4 levels. 3. Small amount of thin ventral epidural enhancement and thickening likely due to developing phlegmon/abscess at the L3-4 levels. No high-grade central canal stenosis. 4. Chronic disc space narrowing L2-3 is unchanged. ? Orthopedic spine service consulted, status post biopsy, biopsy results so far no growth ? Gram stain and cultures so far no growth ?Infectious disease consultation ? Blood cultures, so far negative ? Urine cultures gram-negative rods, Pseudomonas, resistant to meropenem -switch to cefepime, 2 g IV push every 12 hours 6 weeks, stop date June 06, 2024 -Will have patient follow-up with Dr. Smith in 2 weeks, follow-up with infectious disease in 2 weeks, repeat CBC and CMP in 1 week, weekly CBCs and CMP ? Continue home Xarelto for DVT prophylaxis ? For his bilateral nephrostomy tubes, follow-up with Dr. Pederson, in 1 week -Patient did have intermittent hematuria from nephrostomy tubes we will have to monitor this, hemoglobin has remained stable, I discussed this in detail with patient, as his risk of developing hypercoagulable events DVTs/PEs is quite high given that he is relatively bedbound after his lumbar vertebral discitis, on the other hand he does develop to see him intermittent hematuria and his hemoglobin has been monitored closely. Certainly this is a difficult situation, for now continue Xarelto monitor hemoglobin as outpatient monitor hematuria from nephrostomy tubes, follow with Dr. Cartwright Physical Exam Const: COMMON NORMALS: no acute distress and patient oriented x3 Resp: COMMON NORMALS: normal respiratory effort, No retractions, No use of accessory muscles and clear to auscultation bilaterally AUSCULTATION: clear to auscultation bilaterally Cardio: COMMON NORMALS: regular rate, regular rhythm, S1 normal heart sound present and S2 normal heart sound present RATE: regular rate RHYTHM: regular rhythm HEART SOUNDS: S1 normal heart sound present and S2 normal heart sound present GI: COMMON NORMALS: Normal to inspection, nondistended, normoactive bowel sounds present and non-tender Extremity: COMMON NORMALS: no pedal edema Neuro: COMMON NORMALS: patient oriented x3 Psych: COMMON NORMALS: mental status grossly normal Discharge Data Studies Completed and Pending Completed Studies During Hospitalization Category Date Time Status CT abdomen pelvis w con* [id number] Stat Cat Scan 04/27/24 10:22 Completed CXRP [XR chest 1V portable [id number]] Routine Exams 05/02/24 13:32 Completed XR lumbar spine 2-3V* [id number] Routine Exams 04/29/24 17:00 Completed MR lumbar spine wo/w con [id number] Stat MRI 04/27/24 12:16 Completed Pending at discharge Category Date Time Status Anaerobic Culture Routine Lab 04/29/24 17:55 Results Tissue Culture and Gram Stain Routine Lab 04/29/24 17:55 Results Wound Culture Routine Lab 04/29/24 17:55 Results Pathology: Surgical [PTH] Routine Pth 04/29/24 18:39 Received Radiology Impressions Abdomen/Pelvis CT 04/27/24 10:22 IMPRESSION: 1. Status post bilateral percutaneous nephrostomy tubes with no residual hydronephrosis. 2. RIGHT ureteral pigtail stent is also noted in good position. 3. Mild perinephric stranding. 4. Improved aeration at the lung bases. 5. Diffuse constipation. 6. Moderate diverticular disease without acute diverticulitis. 7. Mild progressive loss of the the normal endplates at L3 and L4. This could represent an indolent osteomyelitis. Increasing lucency and lytic changes. Mild paravertebral soft tissue stranding. MRI lumbar spine with and without contrast would provide additional information concerning acute discitis/osteomyelitis. Notified Luis Enrique Nolan MD at 04/27/2024 12:20 PM. Lumbar Spine MRI 04/27/24 12:16 IMPRESSION: 1. Interval development of discitis centered at the L3-4 level with endplate osteomyelitis described above. 2. Diffuse paravertebral soft tissue enhancement worse at the L3-4 levels. 3. Small amount of thin ventral epidural enhancement and thickening likely due to developing phlegmon/abscess at the L3-4 levels. No high-grade central canal stenosis. 4. Chronic disc space narrowing L2-3 is unchanged. Notified Luis Enrique Nolan MD at 04/27/2024 2:27 PM. Lumbar Spine X-Ray 04/29/24 17:00 IMPRESSION: Intraoperative imaging during biopsy at L4. Chest X-Ray 05/02/24 13:32 IMPRESSION: Satisfactory position RIGHT PICC line. Laboratory Results WBC 12.27 10^3/uL (3.29-11.43) H 05/03/24 04:27 RBC 3.53 10^6/uL (3.85-5.65) L 05/03/24 04:27 Hgb 8.50 g/dL (11.27-16.99) L 05/03/24 04:27 Hct 28.4 % (37-53) L 05/03/24 04:27 MCV 80.5 fl (82-101) L 05/03/24 04:27 MCH 24.1 pg (27-33) L 05/03/24 04:27 MCHC 29.9 g/dL (30-55) L 05/03/24 04:27 RDW 17.4 % (12.1-15.1) H 05/03/24 04:27 Plt Count 389 10^3/cmm (157-399) 05/03/24 04:27 MPV 9.7 fL (7.4-10.4) 05/03/24 04:27 Neut % (Auto) 62.6 % 05/03/24 04:27 Lymph % (Auto) 22.4 % 05/03/24 04:27 [place] % (Auto) 8.2 % 05/03/24 04:27 Eos % (Auto) 5.6 % 05/03/24 04:27 Baso % (Auto) 0.8 % 05/03/24 04:27 Neut # (Auto) 7.67 10^3/uL (1.8-7.7) 05/03/24 04:27 Lymph # (Auto) 2.8 10^3/uL (0.8-4.8) 05/03/24 04:27 [place] # (Auto) 1.0 10^3/uL (0.2-0.9) H 05/03/24 04:27 Eos # (Auto) 0.7 10^3/uL (0.0-0.8) 05/03/24 04:27 Baso # (Auto) 0.1 10^3/uL (0.0-0.1) 05/03/24 04:27 Nucleated RBC % (auto) 0 % 05/03/24 04:27 Nucleated RBCs # 0.0 /100WBC 05/03/24 04:27 ESR 42 mm/hr (0-10) H 04/27/24 10:48 PT 15.50 SECONDS (12.1-14.9) H 04/27/24 16:26 INR 1.19 (0.8-1.2) 04/27/24 16:26 Sodium 139 mmol/L (136-145) 05/03/24 04:27 Potassium 4.8 mmol/L (3.5-5.1) 05/03/24 04:27 Chloride 103 mmol/L (98-107) 05/03/24 04:27 Carbon Dioxide 26 mmol/L (22-29) 05/03/24 04:27 Anion Gap 14.8 (5-19) 05/03/24 04:27 BUN 26 mg/dL (8-23) H 05/03/24 04:27 Creatinine 1.1 mg/dL (0.7-1.2) 05/03/24 04:27 GFR Calculation Not Reportable 05/03/24 04:27 Glucose 182 mg/dL (65-115) H 05/03/24 04:27 POC Glucose 197 mg/dL (70-110) H 05/03/24 06:03 Estimat Average Glucose 157 04/27/24 10:48 Hemoglobin A1c 7.1 % (4.0-6.0) H 04/27/24 10:48 Calculated Osmolality 297 mOsm/kg (285-295) H 05/03/24 04:27 Lactic Acid 0.9 mmol/L (0.5-2.2) 04/27/24 14:56 Calcium 8.4 mg/dL (8.5-10.5) L 05/03/24 04:27 Total Bilirubin 0.4 mg/dL (0.15-1.2) 04/27/24 10:48 AST 20 U/L (0-40) 04/27/24 10:48 ALT 30 U/L (0-41) 04/27/24 10:48 Alkaline Phosphatase 163 U/L (40-130) H 04/27/24 10:48 C-Reactive Protein 30.3 mg/L (0.0-4.9) H 05/03/24 04:27 Total Protein 7.4 g/dL (6.6-8.7) 04/27/24 10:48 Albumin 3.2 g/dL (3.5-5.2) L 04/27/24 10:48 Globulin 4.2 g/dL (1.3-4.6) 04/27/24 10:48 Lipase 56 U/L (13-60) 04/27/24 10:48 Procalcitonin 0.12 ng/mL (0-0.5) 05/03/24 04:27 TSH 1.29 uIU/mL (0.27-4.20) 04/27/24 10:48 Urine Color Yellow (Yellow) 04/27/24 15:09 Urine Appearance Slightly cloudy (CLEAR) 04/27/24 15:09 Urine pH 6 (5-7) 04/27/24 15:09 Ur Specific [place] 1.005 (1.005-1.030) 04/27/24 15:09 Urine Protein 1+ (Negative) H 04/27/24 15:09 Urine Glucose (UA) Norm (Normal) 04/27/24 15:09 Urine Ketones Negative (Negative) 04/27/24 15:09 Urine Blood 2+ (Negative) H 04/27/24 15:09 Urine Nitrate Positive (Negative) A 04/27/24 15:09 Urine Bilirubin Neg (Negative) 04/27/24 15:09 Urine Urobilinogen Norm mg/dL (Negative) 04/27/24 15:09 Ur Leukocyte Esterase 2+ (Negative) H 04/27/24 15:09 Urine RBC 0-4 /hpf (0-2) H 04/27/24 15:09 Urine WBC 55-80 /hpf (0-5) H 04/27/24 15:09 Ur Squamous Epith Cells None /hpf (0-5) 04/27/24 15:09 Amorphous Sediment Not Reportable 04/27/24 15:09 Urine Bacteria 1+ /hpf (NONE) H 04/27/24 15:09 Urine Yeast 1+ /hpf H 04/27/24 15:09 SARS-CoV-2 Ag (Rapid) negative (Negative) 05/03/24 05:12 Vitals Last Vital Signs Temp 98.8 F 05/03/24 07:14 Pulse 109 H 05/03/24 07:14 Resp 17 05/03/24 07:14 BP 121/81 05/03/24 07:14 Pulse Ox 92 05/03/24 07:14 O2 Del Method Room Air 05/03/24 07:14 O2 Flow Rate 2 04/29/24 19:39 Discharge Plan Discharge Patient Disposition: Xfer SNF Condition: Stable Prescriptions: New Xarelto 10 mg Tablet 20 mg PO QPM 30 Days Qty: 60 0RF cefepime 2 gram recon soln 2 g IV Q12H 34 Days oxycodone 5 mg tablet 5 mg PO Q4H PRN (Reason: pain) 7 Days Qty: 42 0RF Continued (DME) Dexcom G7 Sensor Device See Rx Instructions .Route Qty: 3 1RF Rx Instructions: As directed (DME) 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 See Rx Instructions .ROUTE Qty: 1 0RF Rx Instructions: As directed (DME) FreeStyle Jimi 2 [place] Misc See Rx Instructions .Route Qty: 1 0RF Rx Instructions: As directed (DME) FreeStyle Jimi 2 Sensor Kit See Rx Instructions .ROUTE .MEDSUPPLY Qty: 6 1RF Rx Instructions: change every 14 days fluticasone propion-salmeterol [Wixela Inhub] 100-50 mcg/dose Blister With Device 1 inh INHALATION BID rosuvastatin 40 mg tablet 40 mg PO BEDTIME@19 tamsulosin 0.4 mg capsule 0.4 mg PO BEDTIME@19 gabapentin 400 mg Capsule 400 mg PO TID bisacodyl [Dulcolax (bisacodyl)] 10 mg Suppository 10 mg DC DAILY PRN (Reason: Constipation) Rx Instructions: if no bm x 3 days finasteride 5 mg Tablet 5 mg PO DAILY@07 menthol-zinc oxide [Calmoseptine] 0.44-20.6 % ointment See Rx Instructions .ROUTE .COMPLEX Rx Instructions: apply to bilateral buttocks every shift for prevention acetaminophen [Tylenol] 325 mg Tablet 650 mg PO Q6H PRN (Reason: Pain) therapeutic multivitamin Tablet 1 tab PO DAILY@07 buspirone 10 mg tablet 10 mg PO BID PRN (Reason: Anxiety) Colace 100 mg Capsule 100 mg PO BID furosemide 20 mg tablet 20 mg PO DAILY albuterol sulfate 90 mcg/actuation HFA aerosol inhaler 2 puff INHALATION Q4H PRN (Reason: Dyspnea) potassium chloride 10 mEq tablet extended release 10 meq PO DAILY pantoprazole 40 mg tablet,delayed release (DR/EC) 40 mg PO BID Pacerone 200 mg tablet 200 mg PO DAILY galantamine 4 mg tablet 4 mg PO BID mometasone 50 mcg/actuation Cardinal,Non-Aerosol 1 spray INTRANASAL BID Rx Instructions: administer into each nostril Changed metoprolol tartrate 50 mg Tablet 12.5 mg PO BID 30 Days Qty: 15 0RF Novolog FlexPen U-100 Insulin 100 unit/mL (3 mL) insulin pen See Rx Instructions .ROUTE .COMPLEX Qty: 15 0RF Rx Instructions: Inject, subcut, 3 times daily, after meals based on sliding scale BS 141-180=0 UNITS, 181-220=2 UNITS, 221-260=4 UNITS, 261-300=6 UNITS, 301-350=8 UNITS, 351-400=10 UNITS, 401-450=12 UNITS. IF BS GREATER THAN 450 GIVE 14 UNITS, IF BS GREATER THAN 500 CALL MD AND SEND TO ER IF LOWER THAN 60 AT ANY TIME. Lantus Solostar U-100 Insulin 100 unit/mL (3 mL) insulin pen 30 unit SUBCUT Q24H Qty: 15 0RF Discontinued hydrocodone-acetaminophen 5-325 mg tablet 1 tab PO Q6H PRN (Reason: Pain) tramadol 50 mg tablet 50 mg PO Q6H PRN (Reason: Pain) Discharge Orders: Discharge Order (Routine); Ordered 05/03/24 Ordered By: Omari Lopez Referrals: Aldo Smith DO [Physician] - 05/17/24 10:30 am () Suzi Coats MD [Hospitalist] - 2 weeks (We have notified your physician's clinic of the need for a follow-up appointment to be scheduled. If you have not heard from them within the next 2 business days, please call them directly. ) Trisha Urena MD [Primary Care Provider] - Frankie Pederson MD [Referring] - 05/10/24 2:10 pm () Discharge Diet: Cardiac Discharge Activity: As per PT/OT instructions Patient Instructions: Oxycodone, Rapid Release (By mouth), Cefepime (By injection), Rivaroxaban (By mouth), Acute Wound Care (DC), PICC (Peripherally Inserted Central Catheter) (GEN), Opioid Safety, Post Anesthesia Care Activity Restrictions/Additional Instructions: -Please use oxycodone sparingly for pain -Cefepime 2 g IV every 12 hours, for a total of 6 weeks, stop date June 06, 2024, remove PICC line thereafter -Monitor blood sugars closely -For patient's bilateral Nephrostomy tubes, please follow-up with, Dr. Cartwright from [place], please call for appointment Thank you for [facility] for your care! The following is a list of instructions, from your provider, to follow upon your discharge to ensure you have the optimal recovery from your recent injury orsurgery. Follow-up care is a ramsey part of your treatment and safety. Be sure to make and go to all appointments, and call your doctor if you are having problems. If you do not already have a follow-up appointment made, call Dr. Smith office in the next 1-3 days to make follow up appointment for 2 weeks at [phone]. It is also a good idea to know your test results and keep a list of the medicines you take. Medications will be prescribed for you at your provider's discretion. These medications are to be used as instructed; if they are taken more often that prescribed they will not be refilled early and in most cases will not be refilled at all. > When a refill is needed,you should contact [facility] 2-3 business days before your prescription runs out. Medications will NOT be refilled by sales assistant institutional sales providers after hours! > Many pain medications contain Tylenol (Acetaminophen). Do not consume more than 4,000 mg of Tylenol per day in total with any combination ofmedications. > Pain medications can cause constipation. Please use an over the counter stool softener as directed, while taking pain medications. Consulty our local pharmacist with questions or recommendations on stool softeners. If constipation persists, contact our office or your primary care provider. > While under our care,you are not to receive pain medications or other controlled substances from any other provider unless our office is notified and approves. Any attempts to do so will result in refusal to prescribe any further pain medications and possible dismissal from our practice. ? Your wound and/or dressing should remain clean and dry for 2 days after surgery. On postoperative day 2 (48 hours after your surgery) the dressing (if present) should be removed and it is okay to shower and get the incision wet. Pad dry afterwards. No further dressing should be required from that point on. Do not put any creams or ointments on theincision > It is normal for there to be a small amount of discharge (bloody or blood tinged) present from a surgical wound for the first 1-3days. > The wound should be examined twice a day for signs of infection. Mild redness or bruising is to be expected but indications that an infection maybe starting would include; An increase in redness, swelling, or discharge, a foul odor present around the incision, and/or a fever greater than 101 ?F ? Showering is permitted, however we ask that you do not take a bath, sit in a whirlpool / Jacuzzi, or go swimming for 1 month. For only the first 2 days after surgery, lt wilt be necessary for you to cover your wound/dressing with plastic and tape to keep it dry. ? Walking is essential for the healing process after surgery. We would like you to slowly advance your walking. This should be done on relatively flat clear ground (inside or out) or can be done on a treadmill. Remember this goal does not have to happen all at once, slowly increase your distance and duration. This can be broken into more more than one walk per day as tolerated. Patients who walk as directed after surgery rarely require Physical Therapy. In the unlikely event this issue arises your provider will direct hospital staff to make the appropriate arrangements. ? No lifting over 5 pounds {a gallon of milk) or bending/twisting until further notice. Each of these activities places an unnecessary amount of stress onto the body and can impede the delicate healing process. > Instead of bending at the waist, keep your back straight and bend at the knees. > Instead of twisting your torso, keep your back straight and turn your entire body with your feet. ? You may sleep in any position which makes you comfortable. Many patients find comfort sleeping in a reclining chair. It is not abnormal to have difficulty sleeping for the first several weeks following your surgery. We recommend trying Benadry! or Tylenol PM as directed to help with your sleeping difficulties. Both medications are over the counter and available withoutprescription. ? NO SMOKING!!! Smoking dramatically increases the probability of developing postoperative wound infections. ? Common complaints after lumbar and/or thoracic spine surgery include, but are not limited to: numbness and/or tingling in the legs, pain around the incision and surrounding tissues, muscle spasms, or stiffness of the middle to low back. Contact our office if these symptoms persist or if an acute change occurs. ? No driving for the first 3-5days, and not while taking narcotics until seen at your follow-up appointment and cleared. There are no restrictions for riding on short trips, however if you take a longer trip, arrangements should be made to make regular stops to get out of the vehicle and stretch . ? Swelling is an unfortunate event that will take place with any surgery and is the primary source of your postoperative discomfort. While walking and regular approved activities helps control inflammation, there are additional steps you can take to minimizeswelling. > Place ice over the surgical site and surrounding tissue for twenty minutes, followed by applying a low/medium heat (heating pad) for an additional twenty minutes every 1-2 hours as needed for painrelief. > You may use of over the counter anti-inflammatory medications (Ibuprofen, Motrin, Aleve, Advil, etc) as directed on the package label. These types of medicines wm significantly reduce the amount of discomfort you experience after surgery from swelling. It should be noted that if you have and allergy to any of these medications, or a history of ulcers or kidney disease you should consult you primary care provider prior to starting these medications. Discharge Attestations Time Spent in Discharge Care*: greater than 30 min Status at Discharge: Cognitive status at discharge: cognitively intact, Behavioral status at discharge: cooperative, Quality Metrics Clinical Quality Measures [ No reported AMI, CVA or VTE this stay] Coding Level of Care Code 02099 Total time (in minutes) for Discharge: 45 Diagnoses Discitis of lumbar region M46.46 Vertebral osteomyelitis, acute M46.20 Intractable back pain M54.9
[2024-05-03] MEDS: potassium chloride ER 10 mEq Tablet PO (08:26)
[2024-05-03] MEDS: FUROsemide 20 mg Tablet PO (08:26)
[2024-05-03] MEDS: insulin lispro 100 unit/1 mL SUBCUT (08:26)
[2024-05-03] MEDS: amiodarone 200 mg Tablet PO (08:27)
[2024-05-03] MEDS: pantoprazole DR 40 mg Tablet PO (08:27)
[2024-05-03] MEDS: docusate sodium 100 mg Capsule PO (08:27)
[2024-05-03] MEDS: gabapentin 400 mg Capsule PO (08:27)
[2024-05-03] MEDS: oxyCODONE 5 mg IR Tab/Cap PO (08:28)
== END 2024-05-03 10:50 | disposition skilled nursing facility (03) | DRG 478 ==
LOC: ER 15:14 → MEDSURG 15:24
PROVIDERS: Orthopaedic Surgery; Admitting Provider Family Medicine; Emergency Provider Emergency Medicine; PCP Family Medicine; Visit Provider Family Medicine
PROC: 0QB03ZX Excision of Lumbar Vertebra, Percutaneous Approach, Diagnostic (ICD-10-PCS; CPT 20251; principal; 2024-04-29 12:45)
DX: M46.26 Osteomyelitis of vertebra, lumbar region (principal); I50.22 Chronic systolic (congestive) heart failure; N39.0 Urinary tract infection, site not specified; M46.46 Discitis, unspecified, lumbar region; Z11.52 Encounter for screening for COVID-19; E11.40 Type 2 diabetes mellitus with diabetic neuropathy, unspecified; Z96.0 Presence of urogenital implants; G89.29 Other chronic pain; I11.0 Hypertensive heart disease with heart failure; N40.0 Benign prostatic hyperplasia without lower urinary tract symptoms; I48.91 Unspecified atrial fibrillation; G30.9 Alzheimer's disease, unspecified; F06.70 Mild neurocognitive disorder due to known physiological condition without behavioral disturbance; G47.33 Obstructive sleep apnea (adult) (pediatric); R31.9 Hematuria, unspecified; B96.5 Pseudomonas (aeruginosa) (mallei) (pseudomallei) as the cause of diseases classified elsewhere; Z79.4 Long term (current) use of insulin; Z79.01 Long term (current) use of anticoagulants; Z93.50 Unspecified cystostomy status; Z86.16 Personal history of COVID-19; Z87.440 Personal history of urinary (tract) infections
CPT/HCPCS: 36415; 36416; 36573; 71045; 72100; 72158; 74177; 76000; 80048; 80053; 81001; 82962; 83036; 83605; 83690; 84145; 84443; 85025; 85610; 85651; 86140; 87040; 87070; 87075; 87077; 87086; 87176; 87186; 87205; 87426; 88307; 88311; 94664; 96365; 96367; 96372; 96375; 97110; 97161; 97165; 97530; 97535; 99285; A9577; C1751; J0330; J0690; J0692; J1100; J1170; J1650; J1815; J2185; J2270; J2405; J2543; J2704; J3010; J3370; J7030; J7040; J7050; J7120; Q9967

== ENCOUNTER 2024-05-15 22:45 | Emergency (ER) | payer OTHER, MEDICARE, SELFPAY ==
[2024-05-15 22:47] VITALS: BP 120/71; PULSE 98; RESP 16; TEMP 36.5; O2SAT 97; BMI 25.0
--- NOTE | 2024-05-15 22:54 | ED_ITS ---
Documented by User: WALT Rogers 05/16/24 00:56 HPI - Back Pain/Injury 2 General: Chief Complaint: Back Pain/Injury Stated Complaint: back pain Time Seen by Provider: 05/15/24 22:48 History of Present Illness: 74-year-old male patient was [facility] in by EMS [facility] for concerns of hallucinations. Patient has a history of bilateral nephrostomy tubes and osteomyelitis of the spine. Patient at this time is on cefepime for the next 34 days. Daughter was visiting with father franki and noticed that he seemed in more pain and had episodes of hallucination. Daughter was concerned that there was something being missed and that he may have a new infection. Patient is alert and reports concerns of back pain and difficulty with activity level. Related Data Home Medications Medication Instructions Recorded Confirmed fluticasone 100 mcg-salmeterol 50 1 inh inhalation BID 10/03/21 04/27/24 mcg/dose blistr powdr for inhalation (Wixela Inhub) rosuvastatin 40 mg tablet 40 mg PO BEDTIME@12/04/21 04/27/24 tamsulosin 0.4 mg capsule 0.4 mg PO BEDTIME@12/04/21 04/27/24 galantamine 4 mg tablet 4 mg PO BID 05/20/23 04/27/24 acetaminophen 325 mg tablet 650 mg PO Q6H PRN Pain 07/02/23 04/27/24 (Tylenol) bisacodyl 10 mg rectal suppository 10 mg SD DAILY PRN Constipation 07/02/23 04/27/24 (Dulcolax (bisacodyl)) finasteride 5 mg tablet 5 mg PO DAILY@07/02/23 04/27/24 gabapentin 400 mg capsule 400 mg PO TID 07/02/23 04/27/24 menthol 0.44 %-zinc oxide 20.6 % See Rx Instructions .Route .COMPLEX 07/02/23 04/27/24 topical ointment (Calmoseptine) therapeutic multivitamin 1 tab PO DAILY@07/02/23 04/27/24 mometasone 50 mcg/actuation nasal 1 spray intranasal BID 08/04/23 04/27/24 spray albuterol sulfate 90 mcg/actuation 2 puff inhalation Q4H PRN Dyspnea 04/27/24 04/27/24 aerosol inhaler amiodarone 200 mg tablet (Pacerone) 200 mg PO DAILY 04/27/24 04/27/24 buspirone 10 mg tablet 10 mg PO BID PRN Anxiety 04/27/24 04/27/24 docusate sodium 100 mg capsule 100 mg PO BID 04/27/24 04/27/24 (Colace) furosemide 20 mg tablet 20 mg PO DAILY 04/27/24 04/27/24 pantoprazole 40 mg tablet,delayed 40 mg PO BID 04/27/24 04/27/24 release potassium chloride 10 mEq 10 meq PO DAILY 04/27/24 04/27/24 tablet,extended release Previous Rx's Medication Instructions Recorded flash glucose scanning reader #1 ea 08/25/23 (FreeStyle Jimi 2 [place]) FreeStyle Jimi 2 Sensor (flash #6 ea 12/11/23 glucose sensor) blood-glucose meter,continuous #1 ea 02/08/24 (Dexcom G7 Fur Clipper) blood-glucose sensor (Dexcom G7 #3 ea 02/08/24 Sensor device) cefepime 2 gram solution for 2 g IV Q12H 34 days 05/03/24 injection insulin aspart U-100 100 unit/mL See Rx Instructions .Route 05/03/24 (3 mL) subcutaneous pen (Novolog .COMPLEX #15 mL FlexPen U-100 Insulin aspart) insulin glargine 100 unit/mL (3 30 unit (0.3 mL) SUBCUT Q24H #15 mL 05/03/24 mL) subcutaneous pen (Lantus Solostar U-100 Insulin) metoprolol tartrate 50 mg tablet 12.5 mg (1/4 x 50 mg) PO BID 30 05/03/24 days #15 tabs rivaroxaban 10 mg tablet (Xarelto) 20 mg (2 x 10 mg) PO QPM 30 days 05/03/24 #60 tabs magnesium hydroxide 400 mg/5 mL 20 ml PO BID PRN constipation #355 05/16/24 oral suspension (Milk of Magnesia) mL Allergies Allergy/AdvReac Type Severity Reaction Status Date / Time pollen extracts Allergy Unknown Verified 04/27/24 10:20 Review of Systems 2 General: Reports: 10 or more systems reviewed and unremarkable except in HPI and below Musc: Reports: back pain Neuro: Reports: other (Altered mental status) PFSH ED 2 PFSH: Medical History Yeast UTI Hematuria due to acute cystitis Mild cognitive impairment with memory loss Bacteriuria Alzheimer disease 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 mellitus History of Doppler ultrasound 08/2021 venous no DVT BLE 08/2021 arterial patent vessels, left posterior tibial may be less than 60% stenosis, left dorsalis pedis not visualized Gait instability SARS-CoV-2 positive positive test 11/17/2021 symptoms weakness, hypoglycemia, altered mental status and low grade fever Anemia Intermittent self-catheterization of bladder due to urinary retention History of sleep study 02/22 limited sleep, no apnea noted but did have nocturnal hypoxemia, recommended to use nocturnal oxygen History of electromyography 01/23 Interpretation: The study provides electrodiagnostic evidence for an axonal sensorimotor polyneuropathy based on small or absent CMAPs and SNAPs with denervation seen distally on EMG. The study is limited for evaluation of lumbar radiculopathy related to the patient's anticoagulated state. History of echocardiogram 05/2021 EF 65% History of cardiovascular stress test 05/2021 normal EKG response, perfusion study without findings of ischemia Diabetes mellitus, type II Chronic anticoagulation Taken off Xarelto secondary to hematuria BPH loc w urin obs/LUTS Obstructive pyelonephritis 09/2021 required ureteral stent placement Left ureteral calculus Diabetic foot ulcer 08/2021 - treated with I&D, antibiotics and wound care clinic management Lumbar stenosis with neurogenic claudication 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 mellitus Cervicalgia of jdomropx-wiwmtjz-hakre region Lumbar stenosis L2/3, L3/4, L4/L5, with radiculopathy right lower extremity H/O prostate cancer Obstructive sleep apnea Refuses CPAP HTN (hypertension) previously on treatment for high blood pressure Atrial fibrillation Surgical History Status post excisional debridement 08/2021 left foot History of laminectomy 03/25 bilateral with partial facetectomies at L2-3, L3-4, L4-[address] Smith Other postprocedural status history of radiofrequency ablation for back pain x 2 Status post laser lithotripsy of ureteral calculus (11/06/21) S/P ureteral stent placement (09/2021) subsequent removal H/O esophagogastroduodenoscopy (10/30/21) 10/2021 pedunculated polyps removed from first portion of duodenum, otherwise normal History of colonoscopy (10/30/21) 11/2021 diverticulosis of sigmoid colon and internal hemorrhoids, sessile polyps removed History of back surgery S/P tonsillectomy S/P appendectomy History of pilonidal cyst Family History Grandmother Heart disease Hypertension Grandfather Hypertension MATERNAL Diabetes Mother No problems noted. Father No problems noted. 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 Const: COMMON NORMALS: alert HENMT: COMMON NORMALS: normocephalic HEAD & SCALP: normocephalic Neck/C-Spine: COMMON NORMALS: full ROM Resp: COMMON NORMALS: normal respiratory effort and clear to auscultation bilaterally AUSCULTATION: clear to auscultation bilaterally Cardio: COMMON NORMALS: regular rate and regular rhythm RATE: regular rate RHYTHM: regular rhythm GI: COMMON NORMALS: Soft to palpation and non-tender PALPATION: Yes Soft to palpation Neuro: SENSORIUM/ORIENTATION: Yes alert Skin: NARRATIVE SKIN EXAM: Skin is dry and flaking Course 2 Vital Signs: Vital signs: Vital Signs Temperature 97.7 F 05/15/24 22:47 Pulse Rate 97 05/16/24 03:00 Respiratory Rate 16 05/15/24 22:47 Blood Pressure 97/63 05/16/24 03:00 Pulse Oximetry 95 05/16/24 03:00 Oxygen Delivery Me thod Room Air 05/16/24 03:00 MDM - Back Pain/Injury Medical Decision Making Patient was brought in by EMS from jail for concerns of of altered mental status and increased back pain. Patient at this time is not hallucinating and is alert and appropriate. Patient does admit that he has had increased back pain that does not seem to be well-controlled. Patient at this time is being treated for osteomyelitis and has bilateral nephrostomy tubes. Vital signs are normal. Differential diagnosis includes but not limited to worsening osteomyelitis of the spine, urinary tract infection, dehydration, anxiety. CBC and CMP unremarkable. Urine sent for culture. CT showed no worsening of renal system or spine infection. CT did not rectal wall thickening with large amount of stool. Recommended Milk of Mag for constipation. Recommend more fluids. F/U otherwise, family and patient report understanding. Labs 05/15/24 23:05 05/15/24 23:05 Radiology Impressions Abdomen/Pelvis CT 05/15/24 23:01 IMPRESSION: 1. Similar appearance of bilateral percutaneous nephrostomy tubes with a double-J catheter within the right kidney. Mild bilateral hydroureter without hydronephrosis. Mild nonspecific bilateral perinephric fat stranding. Punctate nonobstructive calculus within lower pole of the right kidney. 2. There is rectal wall thickening with surrounding fat stranding concerning for stercoral colitis. Diverticulosis without evidence diverticulitis. 3. Mild pericystic fat stranding concerning for cystitis in the appropriate clinical setting. 4. Advanced degenerative changes of the lumbar spine. Laboratory Results WBC 15.51 10^3/uL (3.29-11.43) H 05/15/24 23:05 RBC 3.70 10^6/uL (3.85-5.65) L 05/15/24 23:05 Hgb 9.00 g/dL (11.27-16.99) L 05/15/24 23:05 Hct 30.4 % (37-53) L 05/15/24 23:05 MCV 82.2 fl (82-101) 05/15/24 23:05 MCH 24.3 pg (27-33) L 05/15/24 23:05 MCHC 29.6 g/dL (30-55) L 05/15/24 23:05 RDW 18.5 % (12.1-15.1) H 05/15/24 23:05 Plt Count 370 10^3/cmm (157-399) 05/15/24 23:05 MPV 9.8 fL (7.4-10.4) 05/15/24 23:05 Neut % (Auto) 69.3 % 05/15/24 23:05 Lymph % (Auto) 15.8 % 05/15/24 23:05 [place] % (Auto) 8.7 % 05/15/24 23:05 Eos % (Auto) 5.2 % 05/15/24 23:05 Baso % (Auto) 0.6 % 05/15/24 23:05 Neut # (Auto) 10.75 10^3/uL (1.8-7.7) H 05/15/24 23:05 Lymph # (Auto) 2.5 10^3/uL (0.8-4.8) 05/15/24 23:05 [place] # (Auto) 1.4 10^3/uL (0.2-0.9) H 05/15/24 23:05 Eos # (Auto) 0.8 10^3/uL (0.0-0.8) 05/15/24 23:05 Baso # (Auto) 0.1 10^3/uL (0.0-0.1) 05/15/24 23:05 Nucleated RBC % (auto) 0 % 05/15/24 23:05 Nucleated RBCs # 0.0 /100WBC 05/15/24 23:05 Sodium 134 mmol/L (136-145) L 05/15/24 23:05 Potassium 4.3 mmol/L (3.5-5.1) 05/15/24 23:05 Chloride 100 mmol/L (98-107) 05/15/24 23:05 Carbon Dioxide 23 mmol/L (22-29) 05/15/24 23:05 Anion Gap 15.3 (5-19) 05/15/24 23:05 BUN 29 mg/dL (8-23) H 05/15/24 23:05 Creatinine 1.4 mg/dL (0.7-1.2) H 05/15/24 23:05 GFR Calculation Not Reportable 05/15/24 23:05 Glucose 161 mg/dL (65-115) H 05/15/24 23:05 Calculated Osmolality 287 mOsm/kg (285-295) 05/15/24 23:05 Lactic Acid 1.1 mmol/L (0.5-2.2) 05/15/24 23:05 Calcium 8.4 mg/dL (8.5-10.5) L 05/15/24 23:05 Total Bilirubin 0.3 mg/dL (0.15-1.2) 05/15/24 23:05 AST 16 U/L (0-40) 05/15/24 23:05 ALT 12 U/L (0-41) 05/15/24 23:05 Alkaline Phosphatase 132 U/L (40-130) H 05/15/24 23:05 Total Protein 6.6 g/dL (6.6-8.7) 05/15/24 23:05 Albumin 2.9 g/dL (3.5-5.2) L 05/15/24 23:05 Globulin 3.7 g/dL (1.3-4.6) 05/15/24 23:05 Urine Color Red (Yellow) A 05/16/24 00:49 Urine Appearance Turbid (CLEAR) A 05/16/24 00:49 Urine pH 6.5 (5-7) 05/16/24 00:49 Ur Specific [place] 1.025 (1.005-1.030) 05/16/24 00:49 Urine Protein 3+ (Negative) A 05/16/24 00:49 Urine Glucose (UA) Negative (Normal) 05/16/24 00:49 Urine Ketones Negative (Negative) 05/16/24 00:49 Urine Blood 3+ (Negative) A 05/16/24 00:49 Urine Nitrate Negative (Negative) 05/16/24 00:49 Urine Bilirubin Negative (Negative) 05/16/24 00:49 Urine Urobilinogen 1.0 mg/dL (Negative) 08 00:49 Ur Leukocyte Esterase 3+ (Negative) A 05/16/24 00:49 Urine RBC >100 /hpf (0-2) H 05/16/24 00:49 Urine WBC >100 /hpf (0-5) H 05/16/24 00:49 Ur Squamous Epith Cells 0-5 /hpf (0-5) 05/16/24 00:49 Amorphous Sediment Not Reportable 05/16/24 00:49 Urine Bacteria 1+ /hpf (NONE) H 05/16/24 00:49 Hyaline Casts 16.96 /lpf 05/16/24 00:49 Urine Yeast Trace /hpf 05/16/24 00:49 Serum Ketones Negative (Negative) 05/15/24 23:05 All radiology interpretation(s) finalized by discharge Discharge Plan Discharge Patient Disposition: Home Clinical Impression: Constipation Qualifiers: Constipation type: unspecified constipation type Qualified Code(s): K59.00 - Constipation, unspecified Condition: Stable Prescriptions: New Milk of Magnesia 400 mg/5 mL suspension 20 ml PO BID PRN (Reason: constipation) Qty: 355 0RF No Action (DME) Dexcom G7 Sensor Device See Rx Instructions .Route Qty: 3 1RF Rx Instructions: As directed (DME) Dexcom G7 Fur Clipper Misc See Rx Instructions .ROUTE Qty: 1 0RF Rx Instructions: As directed (DME) FreeStyle Jimi 2 [place] Misc See Rx Instructions .Route Qty: 1 0RF Rx Instructions: As directed (DME) FreeStyle Jimi 2 Sensor Kit See Rx Instructions .ROUTE .MEDSUPPLY Qty: 6 1RF Rx Instructions: change every 14 days fluticasone propion-salmeterol [Wixela Inhub] 100-50 mcg/dose Blister With Device 1 inh INHALATION BID rosuvastatin 40 mg tablet 40 mg PO BEDTIME@19 tamsulosin 0.4 mg capsule 0.4 mg PO BEDTIME@19 gabapentin 400 mg Capsule 400 mg PO TID bisacodyl [Dulcolax (bisacodyl)] 10 mg Suppository 10 mg SD DAILY PRN (Reason: Constipation) Rx Instructions: if no bm x 3 days finasteride 5 mg Tablet 5 mg PO DAILY@07 menthol-zinc oxide [Calmoseptine] 0.44-20.6 % ointment See Rx Instructions .ROUTE .COMPLEX Rx Instructions: apply to bilateral buttocks every shift for prevention acetaminophen [Tylenol] 325 mg Tablet 650 mg PO Q6H PRN (Reason: Pain) therapeutic multivitamin Tablet 1 tab PO DAILY@07 buspirone 10 mg tablet 10 mg PO BID PRN (Reason: Anxiety) Colace 100 mg Capsule 100 mg PO BID furosemide 20 mg tablet 20 mg PO DAILY albuterol sulfate 90 mcg/actuation HFA aerosol inhaler 2 puff INHALATION Q4H PRN (Reason: Dyspnea) potassium chloride 10 mEq tablet extended release 10 meq PO DAILY pantoprazole 40 mg tablet,delayed release (DR/EC) 40 mg PO BID Pacerone 200 mg tablet 200 mg PO DAILY Xarelto 10 mg Tablet 20 mg PO QPM 30 Days Qty: 60 0RF metoprolol tartrate 50 mg Tablet 12.5 mg PO BID 30 Days Qty: 15 0RF Novolog FlexPen U-100 Insulin 100 unit/mL (3 mL) insulin pen See Rx Instructions .ROUTE .COMPLEX Qty: 15 0RF Rx Instructions: Inject, subcut, 3 times daily, after meals based on sliding scale BS 141-180=0 UNITS, 181-220=2 UNITS, 221-260=4 UNITS, 261-300=6 UNITS, 301- 350=8 UNITS, 351-400=10 UNITS, 401-450=12 UNITS. IF BS GREATER THAN 450 GIVE 14 UNITS, IF BS GREATER THAN 500 CALL MD AND SEND TO ER IF LOWER THAN 60 AT ANY TIME. Lantus Solostar U-100 Insulin 100 unit/mL (3 mL) insulin pen 30 unit SUBCUT Q24H Qty: 15 0RF cefepime 2 gram [place] 2 g IV Q12H 34 Days galantamine 4 mg tablet 4 mg PO BID mometasone 50 mcg/actuation [place],Non-Aerosol 1 spray INTRANASAL BID Rx Instructions: administer into each nostril Discharge Orders: Discharge ED (Routine); Ordered 05/16/24 Ordered By: Jonnathan Mart Referrals: Trisha Urena MD [Primary Care Provider] - Discharge Diet: Usual diet Discharge Activity: Increase activity as tolerated Patient Instructions: Constipation (ED) Activity Restrictions/Additional Instructions: Drink plenty of fluids, Return to ER for Fever greater than 100.4 or new concerns. Coding Level of Care Code ED [place] [employer]r for Chg Fwd Documented by User: Joaquim Beard DO 05/16/24 04:03 HPI - Back Pain/Injury 2 General: Chief Complaint: Back Pain/Injury Stated Complaint: back pain Time Seen by Provider: 05/15/24 22:48 Related Data Home Medications Medication Instructions Recorded Confirmed fluticasone 100 mcg-salmeterol 50 1 inh inhalation BID 10/03/21 04/27/24 mcg/dose blistr powdr for inhalation (Wixela Inhub) rosuvastatin 40 mg tablet 40 mg PO BEDTIME@19 12/04/21 04/27/24 tamsulosin 0.4 mg capsule 0.4 mg PO BEDTIME@12/04/21 04/27/24 galantamine 4 mg tablet 4 mg PO BID 05/20/23 04/27/24 acetaminophen 325 mg tablet 650 mg PO Q6H PRN Pain 07/02/23 04/27/24 (Tylenol) bisacodyl 10 mg rectal suppository 10 mg SD DAILY PRN Constipation 07/02/23 04/27/24 (Dulcolax (bisacodyl)) finasteride 5 mg tablet 5 mg PO DAILY@07/02/23 04/27/24 gabapentin 400 mg capsule 400 mg PO TID 07/02/23 04/27/24 menthol 0.44 %-zinc oxide 20.6 % See Rx Instructions .Route .COMPLEX 07/02/23 04/27/24 topical ointment (Calmoseptine) therapeutic multivitamin 1 tab PO DAILY@07/02/23 04/27/24 mometasone 50 mcg/actuation nasal 1 spray intranasal BID 08/04/23 04/27/24 spray albuterol sulfate 90 mcg/actuation 2 puff inhalation Q4H PRN Dyspnea 04/27/24 04/27/24 aerosol inhaler amiodarone 200 mg tablet (Pacerone) 200 mg PO DAILY 04/27/24 04/27/24 buspirone 10 mg tablet 10 mg PO BID PRN Anxiety 04/27/24 04/27/24 docusate sodium 100 mg capsule 100 mg PO BID 04/27/24 04/27/24 (Colace) furosemide 20 mg tablet 20 mg PO DAILY 04/27/24 04/27/24 pantoprazole 40 mg tablet,delayed 40 mg PO BID 04/27/24 04/27/24 release potassium chloride 10 mEq 10 meq PO DAILY 04/27/24 04/27/24 tablet,extended release Previous Rx's Medication Instructions Recorded flash glucose scanning reader #1 ea 08/25/23 (FreeStyle Jimi 2 [place]) FreeStyle Jimi 2 Sensor (flash #6 ea 12/11/23 glucose sensor) blood-glucose meter,continuous #1 ea 02/08/24 (Dexcom G7 Fur Clipper) blood-glucose sensor (Dexcom G7 #3 ea 02/08/24 Sensor device) cefepime 2 gram solution for 2 g IV Q12H 34 days 05/03/24 injection insulin aspart U-100 100 unit/mL See Rx Instructions .Route 05/03/24 (3 mL) subcutaneous pen (Novolog .COMPLEX #15 mL FlexPen U-100 Insulin aspart) insulin glargine 100 unit/mL (3 30 unit (0.3 mL) SUBCUT Q24H #15 mL 05/03/24 mL) subcutaneous pen (Lantus Solostar U-100 Insulin) metoprolol tartrate 50 mg tablet 12.5 mg (1/4 x 50 mg) PO BID 30 05/03/24 days #15 tabs rivaroxaban 10 mg tablet (Xarelto) 20 mg (2 x 10 mg) PO QPM 30 days 05/03/24 #60 tabs magnesium hydroxide 400 mg/5 mL 20 ml PO BID PRN constipation #355 05/16/24 oral suspension (Milk of Magnesia) mL Allergies Allergy/AdvReac Type Severity Reaction Status Date / Time pollen extracts Allergy Unknown Verified 04/27/24 10:20 [facility] ED 2 PFSH: Medical History Yeast UTI Hematuria due to acute cystitis Mild cognitive impairment with memory loss Bacteriuria Alzheimer disease 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 mellitus History of Doppler ultrasound 08/2021 venous no DVT BLE 08/2021 arterial patent vessels, left posterior tibial may be less than 60% stenosis, left dorsalis pedis not visualized Gait instability SARS-CoV-2 positive positive test 11/17/2021 symptoms weakness, hypoglycemia, altered mental status and low grade fever Anemia Intermittent self-catheterization of bladder due to urinary retention History of sleep study 02/22 limited sleep, no apnea noted but did have nocturnal hypoxemia, recommended to use nocturnal oxygen History of electromyography 01/23 Interpretation: The study provides electrodiagnostic evidence for an axonal sensorimotor polyneuropathy based on small or absent CMAPs and SNAPs with denervation seen distally on EMG. The study is limited for evaluation of lumbar radiculopathy related to the patient's anticoagulated state. History of echocardiogram 05/2021 EF 65% History of cardiovascular stress test 05/2021 normal EKG response, perfusion study without findings of ischemia Diabetes mellitus, type II Chronic anticoagulation Taken off Xarelto secondary to hematuria BPH loc w urin obs/LUTS Obstructive pyelonephritis 09/2021 required ureteral stent placement Left ureteral calculus Diabetic foot ulcer 08/2021 - treated with I&D, antibiotics and wound care clinic management Lumbar stenosis with neurogenic claudication 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 mellitus Cervicalgia of gcfrpnbt-khjvkua-imrpz region Lumbar stenosis L2/3, L3/4, L4/L5, with radiculopathy right lower extremity H/O prostate cancer Obstructive sleep apnea Refuses CPAP HTN (hypertension) previously on treatment for high blood pressure Atrial fibrillation Surgical History Status post excisional debridement 08/2021 left foot History of laminectomy 03/25 bilateral with partial facetectomies at L2-3, L3-4, L4-[address] Smith Other postprocedural status history of radiofrequency ablation for back pain x 2 Status post laser lithotripsy of ureteral calculus (11/06/21) S/P ureteral stent placement (09/2021) subsequent removal H/O esophagogastroduodenoscopy (10/30/21) 10/2021 pedunculated polyps removed from first portion of duodenum, otherwise normal History of colonoscopy (10/30/21) 11/2021 diverticulosis of sigmoid colon and internal hemorrhoids, sessile polyps removed History of back surgery S/P tonsillectomy S/P appendectomy History of pilonidal cyst Family History Grandmother Heart disease Hypertension Grandfather Hypertension MATERNAL Diabetes Mother No problems noted. Father No problems noted. 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 Patient at this time is not hallucinating and is alert and appropriate. Patient does admit that he has had increased back pain that does not seem to be well-controlled. Patient at this time is being treated for osteomyelitis and has bilateral nephrostomy tubes. Vital signs are normal. Differential diagnosis includes but not limited to worsening osteomyelitis of the spine, urinary tract infection, dehydration, anxiety. CBC and CMP unremarkable. Urine sent for culture. CT showed no worsening of renal system or spine infection. CT did not rectal wall thickening with large amount of stool. Recommended Milk of Mag for constipation. Recommend more fluids. F/U otherwise, family and patient report understanding. This patient was originally seen by WALT Roberts.? I agree with his history, evaluation, and treatment. Labs 05/15/24 23:05 05/15/24 23:05 Radiology Impressions Abdomen/Pelvis CT 05/15/24 23:01 IMPRESSION: 1. Similar appearance of bilateral percutaneous nephrostomy tubes with a double-J catheter within the right kidney. Mild bilateral hydroureter without hydronephrosis. Mild nonspecific bilateral perinephric fat stranding. Punctate nonobstructive calculus within lower pole of the right kidney. 2. There is rectal wall thickening with surrounding fat stranding concerning for stercoral colitis. Diverticulosis without evidence diverticulitis. 3. Mild pericystic fat stranding concerning for cystitis in the appropriate clinical setting. 4. Advanced degenerative changes of the lumbar spine. Laboratory Results WBC 15.51 10^3/uL (3.29-11.43) H 05/15/24 23:05 RBC 3.70 10^6/uL (3.85-5.65) L 05/15/24 23:05 Hgb 9.00 g/dL (11.27-16.99) L 05/15/24 23:05 Hct 30.4 % (37-53) L 05/15/24 23:05 MCV 82.2 fl (82-101) 05/15/24 23:05 MCH 24.3 pg (27-33) L 05/15/24 23:05 MCHC 29.6 g/dL (30-55) L 05/15/24 23:05 RDW 18.5 % (12.1-15.1) H 05/15/24 23:05 Plt Count 370 10^3/cmm (157-399) 05/15/24 23:05 MPV 9.8 fL (7.4-10.4) 05/15/24 23:05 Neut % (Auto) 69.3 % 05/15/24 23:05 Lymph % (Auto) 15.8 % 05/15/24 23:05 [place] % (Auto) 8.7 % 05/15/24 23:05 Eos % (Auto) 5.2 % 05/15/24 23:05 Baso % (Auto) 0.6 % 05/15/24 23:05 Neut # (Auto) 10.75 10^3/uL (1.8-7.7) H 05/15/24 23:05 Lymph # (Auto) 2.5 10^3/uL (0.8-4.8) 05/15/24 23:05 [place] # (Auto) 1.4 10^3/uL (0.2-0.9) H 05/15/24 23:05 Eos # (Auto) 0.8 10^3/uL (0.0-0.8) 05/15/24 23:05 Baso # (Auto) 0.1 10^3/uL (0.0-0.1) 05/15/24 23:05 Nucleated RBC % (auto) 0 % 05/15/24 23:05 Nucleated RBCs # 0.0 /100WBC 05/15/24 23:05 Sodium 134 mmol/L (136-145) L 05/15/24 23:05 Potassium 4.3 mmol/L (3.5-5.1) 05/15/24 23:05 Chloride 100 mmol/L (98-107) 05/15/24 23:05 Carbon Dioxide 23 mmol/L (22-29) 05/15/24 23:05 Anion Gap 15.3 (5-19) 05/15/24 23:05 BUN 29 mg/dL (8-23) H 05/15/24 23:05 Creatinine 1.4 mg/dL (0.7-1.2) H 05/15/24 23:05 GFR Calculation Not Reportable 05/15/24 23:05 Glucose 161 mg/dL (65-115) H 05/15/24 23:05 Calculated Osmolality 287 mOsm/kg (285-295) 05/15/24 23:05 Lactic Acid 1.1 mmol/L (0.5-2.2) 05/15/24 23:05 Calcium 8.4 mg/dL (8.5-10.5) L 05/15/24 23:05 Total Bilirubin 0.3 mg/dL (0.15-1.2) 05/15/24 23:05 AST 16 U/L (0-40) 05/15/24 23:05 ALT 12 U/L (0-41) 05/15/24 23:05 Alkaline Phosphatase 132 U/L (40-130) H 05/15/24 23:05 Total Protein 6.6 g/dL (6.6-8.7) 05/15/24 23:05 Albumin 2.9 g/dL (3.5-5.2) L 05/15/24 23:05 Globulin 3.7 g/dL (1.3-4.6) 05/15/24 23:05 Urine Color Red (Yellow) A 05/16/24 00:49 Urine Appearance Turbid (CLEAR) A 05/16/24 00:49 Urine pH 6.5 (5-7) 05/16/24 00:49 Ur Specific [place] 1.025 (1.005-1.030) 05/16/24 00:49 Urine Protein 3+ (Negative) A 05/16/24 00:49 Urine Glucose (UA) Negative (Normal) 05/16/24 00:49 Urine Ketones Negative (Negative) 05/16/24 00:49 Urine Blood 3+ (Negative) A 05/16/24 00:49 Urine Nitrate Negative (Negative) 05/16/24 00:49 Urine Bilirubin Negative (Negative) 05/16/24 00:49 Urine Urobilinogen 1.0 mg/dL (Negative) 05/16/24 00:49 Ur Leukocyte Esterase 3+ (Negative) A 05/16/24 00:49 Urine RBC >100 /hpf (0-2) H 05/16/24 00:49 Urine WBC >100 /hpf (0-5) H 05/16/24 00:49 Ur Squamous Epith Cells 0-5 /hpf (0-5) 05/16/24 00:49 Amorphous Sediment Not Reportable 05/16/24 00:49 Urine Bacteria 1+ /hpf (NONE) H 05/16/24 00:49 Hyaline Casts 16.96 /lpf 05/16/24 00:49 Urine Yeast Trace /hpf 05/16/24 00:49 Serum Ketones Negative (Negative) 05/15/24 23:05 Discharge Plan Discharge Patient Disposition: Home Clinical Impression: Constipation Qualifiers: Constipation type: unspecified constipation type Qualified Code(s): K59.00 - Constipation, unspecified Condition: Stable Prescriptions: New Milk of Magnesia 400 mg/5 mL suspension 20 ml PO BID PRN (Reason: constipation) Qty: 355 0RF No Action (DME) Dexcom G7 Sensor Device See Rx Instructions .Route Qty: 3 1RF Rx Instructions: As directed (DME) Dexcom G7 Fur Clipper Misc See Rx Instructions .ROUTE Qty: 1 0RF Rx Instructions: As directed (DME) FreeStyle Jimi 2 [place] Misc See Rx Instructions .Route Qty: 1 0RF Rx Instructions: As directed (DME) FreeStyle Jimi 2 Sensor Kit See Rx Instructions .ROUTE .MEDSUPPLY Qty: 6 1RF Rx Instructions: change every 14 days fluticasone propion-salmeterol [Wixela Inhub] 100-50 mcg/dose Blister With Device 1 inh INHALATION BID rosuvastatin 40 mg tablet 40 mg PO BEDTIME@19 tamsulosin 0.4 mg capsule 0.4 mg PO BEDTIME@19 gabapentin 400 mg Capsule 400 mg PO TID bisacodyl [Dulcolax (bisacodyl)] 10 mg Suppository 10 mg SD DAILY PRN (Reason: Constipation) Rx Instructions: if no bm x 3 days finasteride 5 mg Tablet 5 mg PO DAILY@07 menthol-zinc oxide [Calmoseptine] 0.44-20.6 % ointment See Rx Instructions .ROUTE .COMPLEX Rx Instructions: apply to bilateral buttocks every shift for prevention acetaminophen [Tylenol] 325 mg Tablet 650 mg PO Q6H PRN (Reason: Pain) therapeutic multivitamin Tablet 1 tab PO DAILY@07 buspirone 10 mg tablet 10 mg PO BID PRN (Reason: Anxiety) Colace 100 mg Capsule 100 mg PO BID furosemide 20 mg tablet 20 mg PO DAILY albuterol sulfate 90 mcg/actuation HFA aerosol inhaler 2 puff INHALATION Q4H PRN (Reason: Dyspnea) potassium chloride 10 mEq tablet extended release 10 meq PO DAILY pantoprazole 40 mg tablet,delayed release (DR/EC) 40 mg PO BID Pacerone 200 mg tablet 200 mg PO DAILY Xarelto 10 mg Tablet 20 mg PO QPM 30 Days Qty: 60 0RF metoprolol tartrate 50 mg Tablet 12.5 mg PO BID 30 Days Qty: 15 0RF Novolog FlexPen U-100 Insulin 100 unit/mL (3 mL) insulin pen See Rx Instructions .ROUTE .COMPLEX Qty: 15 0RF Rx Instructions: Inject, subcut, 3 times daily, after meals based on sliding scale BS 141-180=0 UNITS, 181-220=2 UNITS, 221-260=4 UNITS, 261-300=6 UNITS, 301- 350=8 UNITS, 351-400=10 UNITS, 401-450=12 UNITS. IF BS GREATER THAN 450 GIVE 14 UNITS, IF BS GREATER THAN 500 CALL MD AND SEND TO ER IF LOWER THAN 60 AT ANY TIME. Lantus Solostar U-100 Insulin 100 unit/mL (3 mL) insulin pen 30 unit SUBCUT Q24H Qty: 15 0RF cefepime 2 gram [place] 2 g IV Q12H 34 Days galantamine 4 mg tablet 4 mg PO BID mometasone 50 mcg/actuation [place],Non-Aerosol 1 spray INTRANASAL BID Rx Instructions: administer into each nostril Discharge Orders: Discharge ED (Routine); Ordered 05/16/24 Ordered By: Jonnathan Mart Referrals: Trisha Urena MD [Primary Care Provider] - Discharge Diet: Usual diet Discharge Activity: Increase activity as tolerated Patient Instructions: Constipation (ED) Activity Restrictions/Additional Instructions: Drink plenty of fluids, Return to ER for Fever greater than 100.4 or new concerns. Coding Level of Care Code ED [place] [employer] for Say Muñoz
[2024-05-15 23:00] VITALS: BP 108/72; PULSE 108; O2SAT 95
--- NOTE | 2024-05-15 23:01 | CTR_ITS ---
PROCEDURE INFORMATION: Exam: CT Abdomen And Pelvis With Contrast Exam date and time: 05/15/2024 11:54 PM Age: 74 years old Clinical indication: Abdominal pain; Generalized; Prior surgery; Surgery date: 6+ months; Surgery type: Appy. Lumbar laminectomy. Bilat nephrostomy. Ureteral stent. Patient HX: C/O abd and worsening low back pain. History of osteomyelitis and prostate cancer. ; Additional info: Increased back pain, HX of osteomyelitis TECHNIQUE: Imaging protocol: Computed tomography of the abdomen and pelvis with contrast. Radiation optimization: All CT scans at this facility use at least one of these dose optimization techniques: automated exposure control; mA and/or kV adjustment per patient size (includes targeted exams where dose is matched to clinical indication); or iterative reconstruction. Contrast material: OMNI 350; Contrast volume: 80 ml; Contrast route: INTRAVENOUS (IV); COMPARISON: CT abdomen pelvis w con* [id number] 04/27/2024 11:39 AM RADIATION DOSE METRICS: Total DLP (mGy-cm): 1918.64 FINDINGS: Heart: Cardiomegaly. Small pericardial effusion. Coronary arteries: Coronary artery calcifications. Liver: Normal. No mass. Gallbladder and biliary ducts: Normal. No calcified stones. No ductal dilation. Pancreas: Normal. No ductal dilation. Spleen: Normal. No splenomegaly. Adrenal glands: Normal. No mass. Kidneys and ureters: Bilateral percutaneous nephrostomy tubes in place. There is a double-J catheter within the right kidney. Mild bilateral hydroureter. No hydronephrosis bilaterally. Mild nonspecific bilateral perinephric fat stranding. Punctate nonobstructive calculus within lower pole of the right kidney. Stomach and bowel: Diverticulosis without evidence diverticulitis. There is rectal wall thickening with surrounding fat stranding concerning for stercoral colitis. Appendix: Status post appendectomy. Intraperitoneal space: Unremarkable. No free air. No significant fluid collection. Vasculature: Moderate atherosclerotic calcifications. No abdominal aortic aneurysm. Lymph nodes: Unremarkable. No enlarged lymph nodes. Urinary bladder: Pigtail catheter in place. Mild pericystic fat stranding concerning for cystitis in the appropriate clinical setting. Reproductive: Unremarkable as visualized. Bones/joints: Advanced degenerative changes throughout the lumbar spine and lower thoracic spine. Mild loss. of vertebral body endplates at L3 and L4 similar to the most recent study. Slow progression of lytic. changes and destruction involving the endplates of L3 and L4. Soft tissues: Anasarca most pronounced along the flanks. CT/CT abdomen pelvis w con* [id number] IMPRESSION: 1. Similar appearance of bilateral percutaneous nephrostomy tubes with a double-J catheter within the right kidney. Mild bilateral hydroureter without hydronephrosis. Mild nonspecific bilateral perinephric fat stranding. Punctate nonobstructive calculus within lower pole of the right kidney. 2. There is rectal wall thickening with surrounding fat stranding concerning for stercoral colitis. Diverticulosis without evidence diverticulitis. 3. Mild pericystic fat stranding concerning for cystitis in the appropriate clinical setting. 4. Advanced degenerative changes of the lumbar spine.
[2024-05-15 23:09] LABS: Basophils # 0.1 10^3/uL (0.0-0.1); Basophils % 0.6 %; Eosinophils # 0.8 10^3/uL (0.0-0.8); Eosinophils % 5.2 %; Hematocrit 30.4 % (37-53); Lymphocytes # 2.5 10^3/uL (0.8-4.8); Lymphocytes % 15.8 %; Mean Corpuscular HGB Conc 29.6 g/dL (30-55); Mean Corpuscular Hemoglobin 24.3 pg (27-33); Mean Corpuscular Volume 82.2 fl (82-101); Mean Platelet Volume 9.8 fL (7.4-10.4); Monocytes # 1.4 10^3/uL (0.2-0.9); Monocytes % 8.7 %; Neutrophils # 10.75 10^3/uL (1.8-7.7); Neutrophils % 69.3 %; Nucleated Red Blood Cells % 0 %; Platelet Count 370 10^3/cmm (157-399); Red Cell Distribution Width 18.5 % (12.1-15.1); White Blood Count 15.51 10^3/uL (3.29-11.43)
[2024-05-15 23:18] LABS: Ketone (Acetest) Serum Negative (Negative)
[2024-05-15 23:26] LABS: Alanine Aminotransferase 12 U/L (0-41); Albumin Level 2.9 g/dL (3.5-5.2); Alkaline Phosphatase 132 U/L (40-130); Anion Gap 15.3 (5-19); Aspartate Amino Transferase 16 U/L (0-40); Blood Urea Nitrogen 29 mg/dL (8-23); Calcium 8.4 mg/dL (8.5-10.5); Carbon Dioxide 23 mmol/L (22-29); Chloride 100 mmol/L (98-107); Creatinine Clr Calc Pharmacy 51.6686; Globulin 3.7 g/dL (1.3-4.6); Glucose 161 mg/dL (65-115); Osmolality Calculated 287 mOsm/kg (285-295); Potassium 4.3 mmol/L (3.5-5.1); Sodium 134 mmol/L (136-145); Total Bilirubin 0.3 mg/dL (0.15-1.2); Total Protein 6.6 g/dL (6.6-8.7)
[2024-05-15 23:27] LABS: Lactic Sepsis W/Reflex 1.1 mmol/L (0.5-2.2)
[2024-05-15] MEDS: iohexol 350 mg/mL 500 mL Btl (per mL) IV (23:58)
[2024-05-16] VITALS (7 sets, daily range): BP systolic 96–107; BP diastolic 63–72; PULSE 92–97; O2SAT 94–97
[2024-05-16 00:55] LABS: Charge for UA Resulting for Rev
[2024-05-16 00:56] LABS: Bilirubin Urine Negative (Negative); Blood Urine 3+ (Negative); Glucose Urine UA Negative (Normal); Ketones Urine Negative (Negative); Leukocyte Esterase Urine 3+ (Negative); Nitrate Urine Negative (Negative); Protein Urine 3+ (Negative); Specific Gravity, Urine 1.025 (1.005-1.030); Urine Appearance Turbid (CLEAR); pH Urine 6.5 (5-7)
[2024-05-16 01:01] LABS: Bacteria Urine 1+ /hpf; Hyaline Casts Urine 16.96 /lpf; Squamous Epithelial Cell Urine 0-5 /hpf (0-5); WBC Urine >100 /hpf (0-5)
[2024-05-16 01:03] LABS: Urine Color Red (Yellow)
[2024-05-16 01:11] LABS: Add Urine Culture? Yes; RBC Urine >100 /hpf (0-2)
[2024-05-16] MEDS: magnesium hydroxide 30 mL UDC PO (01:20)
== END 2024-05-16 03:32 | disposition home or self-care (01) ==
PROVIDERS: Emergency Provider Nurse Practitioner Family; PCP Family Medicine
DX: K59.00 Constipation, unspecified (principal); Z79.4 Long term (current) use of insulin; G30.9 Alzheimer's disease, unspecified; F02.80 Dementia in other diseases classified elsewhere, unspecified severity, without behavioral disturbance, psychotic disturbance, mood disturbance, and anxiety; E11.40 Type 2 diabetes mellitus with diabetic neuropathy, unspecified; Z85.46 Personal history of malignant neoplasm of prostate; I10 Essential (primary) hypertension
CPT/HCPCS: 74177; 80053; 81003; 81015; 82009; 83605; 85025; 87077; 87086; 87186; 99285; Q9967

== ENCOUNTER → 2024-05-17 10:09 | Outpatient (BNVA) | payer OTHER, MEDICARE, SELFPAY | PROVIDERS: PCP Family Medicine; Visit Provider Orthopaedic Surgery | DX: M48.062 Spinal stenosis, lumbar region with neurogenic claudication (principal) | CPT/HCPCS: 99024 ==

== ENCOUNTER 2024-05-21 01:12 | Emergency (ER) | payer OTHER, MEDICARE, SELFPAY ==
[2024-05-21 01:13] VITALS: BP 118/76; PULSE 113; RESP 18; TEMP 36.7; O2SAT 97; BMI 29.5
--- NOTE | 2024-05-21 01:16 | XRR_ITS ---
PROCEDURE INFORMATION: Exam: XR Chest Exam date and time: 05/21/2024 1:20 AM Age: 74 years old Clinical indication: Patient HX: EMS arrival for general weakness. PT has picc in place. TECHNIQUE: Imaging protocol: Radiologic exam of the chest. Views: 1 view. COMPARISON: CR XR chest 1V portable [id number] 05/02/2024 2:12 PM FINDINGS: Tubes, catheters and devices: PICC line is seen on the right with its tip overlying the SVC. Lungs: Unremarkable. No consolidation. Pleural spaces: Unremarkable. No pleural effusion. No pneumothorax. Heart/Mediastinum: Heart size is normal. There is calcified plaque involving the aorta. Bones/joints: Unremarkable. XR/XR chest 1V portable [id number] IMPRESSION: 1. No acute cardiopulmonary findings.
--- NOTE | 2024-05-21 01:17 | W.ED.WEAKNES ---
HPI - Weakness General: Chief complaint: Back Pain/Injury Stated complaint: Sepsis Time Seen by Provider: 05/21/24 01:13 History of Present Illness: 74-year-old man with a history of vertebral osteomyelitis and a recent cyst removal off of his spine (about 2 weeks ago, difficulty walking, A-fib, chronic urinary obstruction, pressure ulcers, hypertension, and chronic anticoagulation on Xarelto who presents emergency room by ambulance. half-way and reported that he seemed cold and sweaty and was refusing to take his meds. Upon arrival here he is completely awake alert and oriented and says he thinks that he double ordered his [place] and that basically he had been overdosed on it. No fevers. No abdominal pain. No chest pain. No nausea or vomiting. Review of Systems Narrative: Constitutional symptoms: Negative except as documented in HPI. Skin symptoms: Negative except as documented in HPI. Eye symptoms: Negative except as documented in HPI. ENMT symptoms: Negative except as documented in HPI. Respiratory symptoms: Negative except as documented in HPI. Cardiovascular symptoms: Negative except as documented in HPI. Gastrointestinal symptoms: Negative except as documented in HPI. Genitourinary symptoms: Negative except as documented in HPI. Musculoskeletal symptoms: Negative except as documented in HPI. Neurologic symptoms: Negative except as documented in HPI. Psychiatric symptoms: Negative except as documented in HPI. Endocrine symptoms: Negative except as documented in HPI. [facility] PFSH: Medical History Yeast UTI Hematuria due to acute cystitis Mild cognitive impairment with memory loss Bacteriuria Alzheimer disease 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 mellitus History of Doppler ultrasound 08/2021 venous no DVT BLE 08/2021 arterial patent vessels, left posterior tibial may be less than 60% stenosis, left dorsalis pedis not visualized Gait instability SARS-CoV-2 positive positive test 11/17/2021 symptoms weakness, hypoglycemia, altered mental status and low grade fever Anemia Intermittent self-catheterization of bladder due to urinary retention History of sleep study 02/22 limited sleep, no apnea noted but did have nocturnal hypoxemia, recommended to use nocturnal oxygen History of electromyography 01/23 Interpretation: The study provides electrodiagnostic evidence for an axonal sensorimotor polyneuropathy based on small or absent CMAPs and SNAPs with denervation seen distally on EMG. The study is limited for evaluation of lumbar radiculopathy related to the patient's anticoagulated state. History of echocardiogram 05/2021 EF 65% History of cardiovascular stress test 05/2021 normal EKG response, perfusion study without findings of ischemia Diabetes mellitus, type II Chronic anticoagulation Taken off Xarelto secondary to hematuria BPH loc w urin obs/LUTS Obstructive pyelonephritis 09/2021 required ureteral stent placement Left ureteral calculus Diabetic foot ulcer 08/2021 - treated with I&D, antibiotics and wound care clinic management Lumbar stenosis with neurogenic claudication 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 mellitus Cervicalgia of bdfemkka-[place]tm[place]-kixpu region Lumbar stenosis L2/3, L3/4, L4/L5, with radiculopathy right lower extremity H/O prostate cancer Obstructive sleep apnea Refuses CPAP HTN (hypertension) previously on treatment for high blood pressure Atrial fibrillation Surgical History Status post excisional debridement 08/2021 left foot History of laminectomy 03/25 bilateral with partial facetectomies at L2-3, L3-4, L4-[address] Smith Other postprocedural status history of radiofrequency ablation for back pain x 2 Status post laser lithotripsy of ureteral calculus (11/06/21) S/P ureteral stent placement (09/2021) subsequent removal H/O esophagogastroduodenoscopy (10/30/21) 10/2021 pedunculated polyps removed from first portion of duodenum, otherwise normal History of colonoscopy (10/30/21) 11/2021 diverticulosis of sigmoid colon and internal hemorrhoids, sessile polyps removed History of back surgery S/P tonsillectomy S/P appendectomy History of pilonidal cyst Family History Grandmother Heart disease Hypertension Grandfather Hypertension MATERNAL Diabetes Mother No problems noted. Father No problems noted. 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 Skin: Warm, dry. Head: Normocephalic, atraumatic. Neck: Supple, trachea midline. Eye: Extraocular movements are intact. Ears, nose, mouth and throat: mucosa moist. Cardiovascular: Regular, Normal peripheral perfusion. Respiratory: Lungs are clear to auscultation, respirations are non-labored, breath sounds are equal, Symmetrical chest wall expansion. Gastrointestinal: Soft, Nontender, Non distended. He has bilateral nephrostomy tubes. Musculoskeletal: Normal ROM, no deformity. Neurological: Alert and oriented, No focal neurological deficit observed. Psychiatric: Cooperative, appropriate mood & affect. Course Vital Signs: Vital signs: Vital Signs Temperature 98.0 F 05/21/24 01:13 Pulse Rate 113 H 05/21/24 01:13 Respiratory Rate 18 05/21/24 01:13 Blood Pressure 118/76 05/21/24 01:13 Pulse Oximetry 97 05/21/24 01:13 Oxygen Delivery Me thod Room Air 05/21/24 01:13 MDM - Weakness Medical Decision Making Medical decision making: Differential diagnosis for patient presenting with generalized weakness including but not limited to and based on the above HPI, review of systems and physical exam: Sepsis. Dehydration. Renal failure. Electrolyte abnormalities. Anemia. Congestive heart failure. Hypotension. Coronary syndrome. Hepatitis. Cirrhosis. Infections such as pneumonia, urinary tract infection, [place] illness, Cellulitis, Viral infections including influenza and Covid-19. Workup: labwork and lab/exam driven imaging ordered to evaluate, rule in and rule out above pathologies. Chest x-ray: No acute process. No infiltrate. No pneumothorax. This was reviewed and interpreted by myself the ER physician. Lab Review: Laboratory results were reviewed and interpreted by myself the emergency room physician. Patient has no leukocytosis. Stable anemia. BUN and creatinine are 27 and 1.4 which are at or slightly above his baseline. He does appear a little bit dehydrated and was a little tachycardic initially so fluids are being given. Unable to obtain a urinalysis but given that he is having some back pain and he has nephrostomy tubes we are going to treat him empirically for urinary tract infection. Again patient does not appear septic. No leukocytosis. No elevation in his lactate. I reviewed the patient's medical record. Reexamination: Patient remained stable. No increased work of breathing. No altered mental status. No focal motor deficits. Assessment and plan: Urinary tract infection Dehydration - Discharged home - Discussed findings and plan with patient. Answered any questions. - All laboratory values were reviewed and interpreted personally by myself, the ER physician - All imaging was reviewed and interpreted personally by myself, the ER physician. - Evaluation and treatment of this problem were appropriate in the emergency setting Lab Data 05/21/24 01:20 05/21/24 01:20 Laboratory Results WBC 11.04 10^3/uL (3.29-11.43) 05/21/24 01:20 RBC 3.76 10^6/uL (3.85-5.65) L 05/21/24 01:20 Hgb 9.00 g/dL (11.27-16.99) L 05/21/24 01:20 Hct 30.3 % (37-53) L 05/21/24 01:20 MCV 80.6 fl (82-101) L 05/21/24 01:20 MCH 23.9 pg (27-33) L 05/21/24 01:20 MCHC 29.7 g/dL (30-55) L 05/21/24 01:20 RDW 18.3 % (12.1-15.1) H 05/21/24 01:20 Plt Count 373 10^3/cmm (157-399) 05/21/24 01:20 MPV 9.9 fL (7.4-10.4) 05/21/24 01:20 Neut % (Auto) 61.9 % 05/21/24 01:20 Lymph % (Auto) 17.3 % 05/21/24 01:20 [place] % (Auto) 9.1 % 05/21/24 01:20 Eos % (Auto) 10.1 % 05/21/24 01:20 Baso % (Auto) 1.1 % 05/21/24 01:20 Neut # (Auto) 6.83 10^3/uL (1.8-7.7) 05/21/24 01:20 Lymph # (Auto) 1.9 10^3/uL (0.8-4.8) 05/21/24 01:20 [place] # (Auto) 1.0 10^3/uL (0.2-0.9) H 05/21/24 01:20 Eos # (Auto) 1.1 10^3/uL (0.0-0.8) H 05/21/24 01:20 Baso # (Auto) 0.1 10^3/uL (0.0-0.1) 05/21/24 01:20 Nucleated RBC % (auto) 0 % 05/21/24 01:20 Nucleated RBCs # 0.0 /100WBC 05/21/24 01:20 Sodium 138 mmol/L (136-145) 05/21/24 01:20 Potassium 4.2 mmol/L (3.5-5.1) 05/21/24 01:20 Chloride 103 mmol/L (98-107) 05/21/24 01:20 Carbon Dioxide 22 mmol/L (22-29) 05/21/24 01:20 Anion Gap 17.2 (5-19) 05/21/24 01:20 BUN 27 mg/dL (8-23) H 05/21/24 01:20 Creatinine 1.4 mg/dL (0.7-1.2) H 05/21/24 01:20 GFR Calculation Not Reportable 05/21/24 01:20 Glucose 191 mg/dL (65-115) H 05/21/24 01:20 Calculated Osmolality 296 mOsm/kg (285-295) H 05/21/24 01:20 Lactic Acid 1.4 mmol/L (0.5-2.2) 05/21/24 01:20 Calcium 8.7 mg/dL (8.5-10.5) 05/21/24 01:20 Total Bilirubin 0.3 mg/dL (0.15-1.2) 05/21/24 01:20 AST 18 U/L (0-40) 05/21/24 01:20 ALT 13 U/L (0-41) 05/21/24 01:20 Alkaline Phosphatase 122 U/L (40-130) 05/21/24 01:20 C-Reactive Protein 33.0 mg/L (0.0-4.9) H 05/21/24 01:20 Total Protein 6.6 g/dL (6.6-8.7) 05/21/24 01:20 Albumin 3.1 g/dL (3.5-5.2) L 05/21/24 01:20 Globulin 3.5 g/dL (1.3-4.6) 05/21/24 01:20 Procalcitonin 0.19 ng/mL (0-0.5) 05/21/24 01:20 XR interpretation done by ED provider, pending radiology final review Discharge Plan Discharge Patient Disposition: Home Clinical Impression: Urinary tract infection, Dehydration Condition: Stable Prescriptions: New cefdinir 300 mg capsule 300 mg PO BID 7 Days Qty: 14 0RF No Action (DME) Dexcom G7 Sensor Device See Rx Instructions .Route Qty: 3 1RF Rx Instructions: As directed (DME) Dexcom G7 Bending Frame Operator Misc See Rx Instructions .Route Qty: 1 0RF Rx Instructions: As directed (DME) FreeStyle Jimi 2 Hi Hat Misc See Rx Instructions .Route Qty: 1 0RF Rx Instructions: As directed (DME) FreeStyle Jimi 2 Sensor Kit See Rx Instructions .ROUTE .MEDSUPPLY Qty: 6 1RF Rx Instructions: change every 14 days fluticasone propion-salmeterol [Wixela Inhub] 100-50 mcg/dose Blister With Device 1 inh INHALATION BID rosuvastatin 40 mg tablet 40 mg PO BEDTIME@19 tamsulosin 0.4 mg capsule 0.4 mg PO BEDTIME@19 gabapentin 400 mg Capsule 400 mg PO TID bisacodyl [Dulcolax (bisacodyl)] 10 mg Suppository 10 mg [place] DAILY PRN (Reason: Constipation) Rx Instructions: if no bm x 3 days finasteride 5 mg Tablet 5 mg PO DAILY@07 menthol-zinc oxide [Calmoseptine] 0.44-20.6 % ointment See Rx Instructions .ROUTE .COMPLEX Rx Instructions: apply to bilateral buttocks every shift for prevention acetaminophen [Tylenol] 325 mg Tablet 650 mg PO Q6H PRN (Reason: Pain) therapeutic multivitamin Tablet 1 tab PO DAILY@07 buspirone 10 mg tablet 10 mg PO BID PRN (Reason: Anxiety) Colace 100 mg Capsule 100 mg PO BID furosemide 20 mg tablet 20 mg PO DAILY albuterol sulfate 90 mcg/actuation HFA aerosol inhaler 2 puff INHALATION Q4H PRN (Reason: Dyspnea) potassium chloride 10 mEq tablet extended release 10 meq PO DAILY pantoprazole 40 mg tablet,delayed release (DR/EC) 40 mg PO BID Pacerone 200 mg tablet 200 mg PO DAILY Xarelto 10 mg Tablet 20 mg PO QPM 30 Days Qty: 60 0RF metoprolol tartrate 50 mg Tablet 12.5 mg PO BID 30 Days Qty: 15 0RF Novolog FlexPen U-100 Insulin 100 unit/mL (3 mL) insulin pen See Rx Instructions .ROUTE .COMPLEX Qty: 15 0RF Rx Instructions: Inject, subcut, 3 times daily, after meals based on sliding scale BS 141-180=0 UNITS, 181-220=2 UNITS, 221-260=4 UNITS, 261-300=6 UNITS, 301-350=8 UNITS, 351-400=10 UNITS, 401-450=12 UNITS. IF BS GREATER THAN 450 GIVE 14 UNITS, IF BS GREATER THAN 500 CALL MD AND SEND TO ER IF LOWER THAN 60 AT ANY TIME. Lantus Solostar U-100 Insulin 100 unit/mL (3 mL) insulin pen 30 unit SUBCUT Q24H Qty: 15 0RF cefepime 2 gram recon soln 2 g IV Q12H 34 Days galantamine 4 mg tablet 4 mg PO BID mometasone 50 mcg/actuation [place],Non-Aerosol 1 spray INTRANASAL BID Rx Instructions: administer into each nostril Milk of Magnesia 400 mg/5 mL suspension 20 ml PO BID PRN (Reason: constipation) Qty: 355 0RF Discharge Orders: Discharge ED (Routine); Ordered 05/21/24 Ordered By: Ricarda Elias Referrals: Trisha Urena MD [Primary Care Provider] - Discharge Diet: Usual diet Patient Instructions: Urinary Tract Infection in Men (ED) Activity Restrictions/Additional Instructions: Thank you for choosing [facility] for your healthcare needs today. Please realize this is an emergency room and that we are providing you with a medical screening exam and this may not be complete and all inclusive of all the testing and or work up that you may need to determine your ailment or severity of your illness. You have been screened and evaluated and felt safe for discharge. Health conditions do change or evolve sometimes and as such it is important that you follow up with your Primary Doctor to be re checked, 3-5 days is a general good time frame for follow up. You are always welcome to return to the ED for re assessment if your symptoms are worsening or you have new concerns Coding Level of Care Code ED Brazing Machine Operator Helper for Chg Fwd Related Data Home Medications Medication Instructions Recorded Confirmed fluticasone 100 mcg-salmeterol 50 1 inh inhalation BID 10/03/21 05/17/24 mcg/dose blistr powdr for inhalation (Wixela Inhub) rosuvastatin 40 mg tablet 40 mg PO BEDTIME@12/04/21 05/17/24 tamsulosin 0.4 mg capsule 0.4 mg PO BEDTIME@12/04/21 05/17/24 galantamine 4 mg tablet 4 mg PO BID 05/20/23 05/17/24 acetaminophen 325 mg tablet 650 mg PO Q6H PRN Pain 07/02/23 05/17/24 (Tylenol) bisacodyl 10 mg rectal suppository 10 mg [place] DAILY PRN Constipation 07/02/23 05/17/24 (Dulcolax (bisacodyl)) finasteride 5 mg tablet 5 mg PO DAILY@07/02/23 05/17/24 gabapentin 400 mg capsule 400 mg PO TID 07/02/23 05/17/24 menthol 0.44 %-zinc oxide 20.6 % See Rx Instructions .Route .COMPLEX 07/02/23 05/17/24 topical ointment (Calmoseptine) therapeutic multivitamin 1 tab PO DAILY@07/02/23 05/17/24 mometasone 50 mcg/actuation nasal 1 spray intranasal BID 08/04/23 05/17/24 spray albuterol sulfate 90 mcg/actuation 2 puff inhalation Q4H PRN Dyspnea 04/27/24 05/17/24 aerosol inhaler amiodarone 200 mg tablet (Pacerone) 200 mg PO DAILY 04/27/24 05/17/24 buspirone 10 mg tablet 10 mg PO BID PRN Anxiety 04/27/24 05/17/24 docusate sodium 100 mg capsule 100 mg PO BID 04/27/24 05/17/24 (Colace) furosemide 20 mg tablet 20 mg PO DAILY 04/27/24 05/17/24 pantoprazole 40 mg tablet,delayed 40 mg PO BID 04/27/24 05/17/24 release potassium chloride 10 mEq 10 meq PO DAILY 04/27/24 05/17/24 tablet,extended release Previous Rx's Medication Instructions Recorded flash glucose scanning reader #1 ea 08/25/23 (FreeStyle Jimi 2 Hi Hat) FreeStyle Jimi 2 Sensor (flash #6 ea 12/11/23 glucose sensor) blood-glucose meter,continuous #1 ea 02/08/24 (Dexcom G7 Bending Frame Operator) blood-glucose sensor (Dexcom G7 #3 ea 02/08/24 Sensor device) cefepime 2 gram solution for 2 g IV Q12H 34 days 05/03/24 injection insulin aspart U-100 100 unit/mL See Rx Instructions .Route 05/03/24 (3 mL) subcutaneous pen (Novolog .COMPLEX #15 mL FlexPen U-100 Insulin aspart) insulin glargine 100 unit/mL (3 30 unit (0.3 mL) SUBCUT Q24H #15 mL 05/03/24 mL) subcutaneous pen (Lantus Solostar U-100 Insulin) metoprolol tartrate 50 mg tablet 12.5 mg (1/4 x 50 mg) PO BID 30 05/03/24 days #15 tabs rivaroxaban 10 mg tablet (Xarelto) 20 mg (2 x 10 mg) PO QPM 30 days 05/03/24 #60 tabs magnesium hydroxide 400 mg/5 mL 20 ml PO BID PRN constipation #355 05/16/24 oral suspension (Milk of Magnesia) mL cefdinir 300 mg capsule 300 mg PO BID 7 days #14 caps 05/21/24 Allergies Allergy/AdvReac Type Severity Reaction Status Date / Time pollen extracts Allergy Unknown Verified 04/27/24 10:20
[2024-05-21 01:31] LABS: Basophils # 0.1 10^3/uL (0.0-0.1); Basophils % 1.1 %; Eosinophils # 1.1 10^3/uL (0.0-0.8); Eosinophils % 10.1 %; Hematocrit 30.3 % (37-53); Lymphocytes # 1.9 10^3/uL (0.8-4.8); Lymphocytes % 17.3 %; Mean Corpuscular HGB Conc 29.7 g/dL (30-55); Mean Corpuscular Hemoglobin 23.9 pg (27-33); Mean Corpuscular Volume 80.6 fl (82-101); Mean Platelet Volume 9.9 fL (7.4-10.4); Monocytes % 9.1 %; Neutrophils # 6.83 10^3/uL (1.8-7.7); Neutrophils % 61.9 %; Nucleated Red Blood Cells % 0 %; Platelet Count 373 10^3/cmm (157-399); Red Blood Count 3.76 10^6/uL (3.85-5.65); Red Cell Distribution Width 18.3 % (12.1-15.1); White Blood Count 11.04 10^3/uL (3.29-11.43)
[2024-05-21 01:58] LABS: Alanine Aminotransferase 13 U/L (0-41); Albumin Level 3.1 g/dL (3.5-5.2); Alkaline Phosphatase 122 U/L (40-130); Anion Gap 17.2 (5-19); Aspartate Amino Transferase 18 U/L (0-40); Blood Urea Nitrogen 27 mg/dL (8-23); Calcium 8.7 mg/dL (8.5-10.5); Carbon Dioxide 22 mmol/L (22-29); Chloride 103 mmol/L (98-107); Creatinine Clr Calc Pharmacy 49.1619; Globulin 3.5 g/dL (1.3-4.6); Glucose 191 mg/dL (65-115); Lactic Sepsis W/Reflex 1.4 mmol/L (0.5-2.2); Osmolality Calculated 296 mOsm/kg (285-295); Potassium 4.2 mmol/L (3.5-5.1); Sodium 138 mmol/L (136-145); Total Bilirubin 0.3 mg/dL (0.15-1.2); Total Protein 6.6 g/dL (6.6-8.7)
[2024-05-21 02:03] LABS: Procalcitonin 0.19 ng/mL (0-0.5)
[2024-05-21] MEDS: cefTRIAXone 1,000 mg SDV 1000 MG IVP (02:30)
[2024-05-21] MEDS: sodium chloride 0.9% 1,000 ML 999 ML IV (02:32)
[2024-05-21 02:33] VITALS: BP 111/60; PULSE 106; O2SAT 99
[2024-05-21 04:08] VITALS: BP 114/78; PULSE 99; O2SAT 100
--- NOTE | 2024-05-21 04:21 | PC.NURSE ---
Report given to Elke Lopez at [facility]. Nurse informed of discharge instruction and new medication.
[2024-05-21 06:02] VITALS: BP 123/85; PULSE 100; O2SAT 94
--- NOTE | 2024-05-21 06:05 | PC.NURSE ---
Patient's depends soiled; nursing staff removed soiled depends, cleaned patient, and patient was placed in clean dry depends and repositioned in bed.
== END 2024-05-21 08:59 | disposition home or self-care (01) ==
PROVIDERS: Emergency Provider Emergency Medicine; PCP Family Medicine
DX: N39.0 Urinary tract infection, site not specified (principal); E86.0 Dehydration; Z79.4 Long term (current) use of insulin; E11.40 Type 2 diabetes mellitus with diabetic neuropathy, unspecified; G30.9 Alzheimer's disease, unspecified; F02.80 Dementia in other diseases classified elsewhere, unspecified severity, without behavioral disturbance, psychotic disturbance, mood disturbance, and anxiety; Z85.46 Personal history of malignant neoplasm of prostate; I10 Essential (primary) hypertension
CPT/HCPCS: 71045; 80053; 83605; 84145; 85025; 86140; 87040; 87150; 87205; 96361; 96374; 99284; J0696; J7030

== ENCOUNTER 2024-06-01 13:14 | Emergency (ER) | payer OTHER, MEDICARE, SELFPAY ==
[2024-06-01] VITALS (10 sets, daily range): BP systolic 97–147; BP diastolic 65–89; PULSE 68–115; RESP 16–25; TEMP 36.8; O2SAT 90–100; BMI 33.4
--- NOTE | 2024-06-01 13:20 | CT_ITS ---
WS: [id number] CT ABDOMEN PELVIS TECHNIQUE: Noncontrast CT of the abdomen and pelvis with coronal and sagittal reformatted images. CLINICAL INFORMATION: Abdominal pain, bilateral nephrostomy tubes COMPARISON: CT 05/15/2024 DLP: 973.[address] scans at [facility] use at least one of these dose optimization techniques: automated e xposure control; mA and/or kV adjustment per patient size (includes targeted exams where dose is matc hed to clinical indication); or iterative reconstruction. FINDINGS: Bilateral percutaneous nephrostomy tubes are similar in appearance compared to previous. RIGHT double -J ureteral stent with tip in the bladder appears stable. Mild dilatation of the RIGHT renal pelvis i s new compared to previous. Recommend correlation with RIGHT nephrostomy drainage. Bladder appears de compressed. Noncontrast liver is normal. Normal GE junction. Noncontrast spleen is normal. Lung bases are well ae rated. Noncontrast pancreas appears normal. Adrenal glands are normal. Normal caliber abdominal aorta . Aortic calcification. Few sigmoid diverticuli. No evidence of acute diverticulitis. Transverse colo n constipation. Normal appendix in the RIGHT lower quadrant. Erosion of the endplates at L3-4 similar to previous suspicious for discitis. Recommend correlation with clinical history. This is unchanged since the recent study but progressed compared to 03/09/2024. Stable appearance of previously described rectal wall thickening with surrounding induration which ca n be seen with stercoral proctocolitis Small pericardial effusion. CT/CT abdomen pelvis wo con [id number] IMPRESSION: 1. Increased dilatation the RIGHT renal pelvis compared to previous. Recommend correlation with RIGHT nephrostomy tube drainage. Double-J ureteral stent appe ars in place. 2. No hydronephrosis in the LEFT kidney. 3. Destruction of the endplates at L3-4 suspicious for discitis. This is progr essed since 03/09/2024 and is unchanged since 05/15/2024. Recommend correlation wi th history of infection and back pain. Notified Ricarda Elias MD at 06/01/2024 2:35 PM.
--- NOTE | 2024-06-01 13:56 | W.ED.MALEGU ---
HPI - Male Genitourinary General: Chief complaint: Urogenital-Male Stated complaint: Urinary Time Seen by Provider: 06/01/24 13:18 History of Present Illness: 74-year-old man with a history ofHypertension, diabetes, A-fib on Xarelto, chronic nephrostomy tubes secondary to a chronic bladder problem. Apparently has a very small bladder that does not drain so has had to have nephrostomy tubes. The last couple of times he has been areas been transferred to [facility] in [place]. However there is plans for specialist and urology to do some sort of procedure that we will eliminate the nephrostomy tubes but the last couple of times he has not been able to secondary to complications. Most recently he developed discitis and has been on cefepime at the care home. Today he presents from the care home by ambulance with decreased urine output from his right nephrostomy tube and the presence of blood in that nephrostomy bag. He is complaining of worsening back pain. Initially on presentation his vitals are stable.. No altered mental status. No focal motor deficits. No chest pain. No shortness of breath. Related Data Home Medications Medication Instructions Recorded Confirmed fluticasone 100 mcg-salmeterol 50 1 inh inhalation BID 10/03/21 06/01/24 mcg/dose blistr powdr for inhalation (Wixela Inhub) rosuvastatin 40 mg tablet 40 mg PO BEDTIME@19 12/04/21 06/01/24 galantamine 4 mg tablet 4 mg PO BID 05/20/23 06/01/24 acetaminophen 325 mg tablet 650 mg PO Q6H PRN Pain 07/02/23 06/01/24 (Tylenol) bisacodyl 10 mg rectal suppository 10 mg ND DAILY PRN Constipation 07/02/23 06/01/24 (Dulcolax (bisacodyl)) menthol 0.44 %-zinc oxide 20.6 % See Rx Instructions .Route .COMPLEX 07/02/23 06/01/24 topical ointment (Calmoseptine) therapeutic multivitamin 1 tab PO DAILY@07 07/02/23 06/01/24 mometasone 50 mcg/actuation nasal 1 spray intranasal BID 08/04/23 06/01/24 spray albuterol sulfate 90 mcg/actuation 2 puff inhalation Q4H PRN Dyspnea 04/27/24 06/01/24 aerosol inhaler amiodarone 200 mg tablet (Pacerone) 200 mg PO DAILY 04/27/24 06/01/24 buspirone 10 mg tablet 10 mg PO BID PRN Anxiety 04/27/24 06/01/24 docusate sodium 100 mg capsule 100 mg PO BID 04/27/24 06/01/24 (Colace) furosemide 20 mg tablet 20 mg PO DAILY 04/27/24 06/01/24 pantoprazole 40 mg tablet,delayed 40 mg PO BID 04/27/24 06/01/24 release potassium chloride 10 mEq 10 meq PO DAILY 04/27/24 06/01/24 tablet,extended release insulin glargine 100 unit/mL (3 33 unit SUBCUT Q24H 06/01/24 06/01/24 mL) subcutaneous pen (Lantus Solostar U-100 Insulin) oxycodone 5 mg tablet 5 mg PO BID PRN Pain 06/01/24 06/01/24 Previous Rx's Medication Instructions Recorded flash glucose scanning reader #1 ea 08/25/23 (FreeStyle Jimi 2 Ettrick) FreeStyle Jimi 2 Sensor (flash #6 ea 12/11/23 glucose sensor) blood-glucose meter,continuous #1 ea 02/08/24 (Dexcom G7 [employer]) blood-glucose sensor (Dexcom G7 #3 ea 02/08/24 Sensor device) cefepime 2 gram solution for 2 g IV Q12H 34 days 05/03/24 injection insulin aspart U-100 100 unit/mL See Rx Instructions .Route 05/03/24 (3 mL) subcutaneous pen (Novolog .COMPLEX #15 mL FlexPen U-100 Insulin aspart) metoprolol tartrate 50 mg tablet 12.5 mg (1/4 x 50 mg) PO BID 30 05/03/24 days #15 tabs rivaroxaban 10 mg tablet (Xarelto) 20 mg (2 x 10 mg) PO QPM 30 days 05/03/24 #60 tabs magnesium hydroxide 400 mg/5 mL 20 ml PO BID PRN constipation #355 05/16/24 oral suspension (Milk of Magnesia) mL Allergies Allergy/AdvReac Type Severity Reaction Status Date / Time pollen extracts Allergy Unknown Verified 04/27/24 10:20 Review of Systems Narrative: Constitutional symptoms: Negative except as documented in HPI. Skin symptoms: Negative except as documented in HPI. Eye symptoms: Negative except as documented in HPI. ENMT symptoms: Negative except as documented in HPI. Respiratory symptoms: Negative except as documented in HPI. Cardiovascular symptoms: Negative except as documented in HPI. Gastrointestinal symptoms: Negative except as documented in HPI. Genitourinary symptoms: Negative except as documented in HPI. Musculoskeletal symptoms: Negative except as documented in HPI. Neurologic symptoms: Negative except as documented in HPI. Psychiatric symptoms: Negative except as documented in HPI. Endocrine symptoms: Negative except as documented in HPI. PFSH ED PFSH: Medical History Yeast UTI Hematuria due to acute cystitis Mild cognitive impairment with memory loss Bacteriuria Alzheimer disease 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 mellitus History of Doppler ultrasound 08/2021 venous no DVT BLE 08/2021 arterial patent vessels, left posterior tibial may be less than 60% stenosis, left dorsalis pedis not visualized Gait instability SARS-CoV-2 positive positive test 11/17/2021 symptoms weakness, hypoglycemia, altered mental status and low grade fever Anemia Intermittent self-catheterization of bladder due to urinary retention History of sleep study 02/22 limited sleep, no apnea noted but did have nocturnal hypoxemia, recommended to use nocturnal oxygen History of electromyography 01/23 Interpretation: The study provides electrodiagnostic evidence for an axonal sensorimotor polyneuropathy based on small or absent CMAPs and SNAPs with denervation seen distally on EMG. The study is limited for evaluation of lumbar radiculopathy related to the patient's anticoagulated state. History of echocardiogram 05/2021 EF 65% History of cardiovascular stress test 05/2021 normal EKG response, perfusion study without findings of ischemia Diabetes mellitus, type II Chronic anticoagulation Taken off Xarelto secondary to hematuria BPH loc w urin obs/LUTS Obstructive pyelonephritis 09/2021 required ureteral stent placement Left ureteral calculus Diabetic foot ulcer 08/2021 - treated with I&D, antibiotics and wound care clinic management Lumbar stenosis with neurogenic claudication 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 mellitus Cervicalgia of miobqgtx-lhdiswx-tdsvw region Lumbar stenosis L2/3, L3/4, L4/L5, with radiculopathy right lower extremity H/O prostate cancer Obstructive sleep apnea Refuses CPAP HTN (hypertension) previously on treatment for high blood pressure Atrial fibrillation Surgical History Status post excisional debridement 08/2021 left foot History of laminectomy 03/25 bilateral with partial facetectomies at L2-3, L3-4, L4-[address] Smith Other postprocedural status history of radiofrequency ablation for back pain x 2 Status post laser lithotripsy of ureteral calculus (11/06/21) S/P ureteral stent placement (09/2021) subsequent removal H/O esophagogastroduodenoscopy (10/30/21) 10/2021 pedunculated polyps removed from first portion of duodenum, otherwise normal History of colonoscopy (10/30/21) 11/2021 diverticulosis of sigmoid colon and internal hemorrhoids, sessile polyps removed History of back surgery S/P tonsillectomy S/P appendectomy History of pilonidal cyst Family History Grandmother Heart disease Hypertension Grandfather Hypertension MATERNAL Diabetes Mother No problems noted. Father No problems noted. 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 Head: Normocephalic, atraumatic. Neck: Supple, trachea midline. Eye: Extraocular movements are intact. Ears, nose, mouth and throat: Tacky oral mucosa Cardiovascular: Regular, Normal peripheral perfusion. Respiratory: Lungs are clear to auscultation, respirations are non-labored, breath sounds are equal, Symmetrical chest wall expansion. Gastrointestinal: Soft, Nontender, Non distended bilateral nephrostomy tubes. The right has blood in the bag. Musculoskeletal: Normal ROM, no deformity. Neurological: Alert and oriented, No focal neurological deficit observed. Psychiatric: Cooperative, appropriate mood & affect. Course Vital Signs: Vital signs: Vital Signs Temperature 98.2 F 06/01/24 13:18 Pulse Rate 111 H 06/01/24 18:24 Respiratory Rate 16 06/01/24 18:24 Blood Pressure 105/78 06/01/24 18:24 Pulse Oximetry 100 06/01/24 17:43 MDM - Male Medical Decision Making Medical decision making: Differential diagnosis including but not limited to and based on the above HPI, review of systems and physical exam: Would have concern for nephrostomy tube displacement, worsening urinary tract infection, renal failure. Sepsis. Orders placed to evaluate differential diagnosis based on the above differential, HPI and physical exam Lab Review: Laboratory results were reviewed and interpreted by myself the emergency room physician. Patient has moderate leukocytosis. Renal function is elevated over his baseline at 31 and 1.8. Sugars elevated at 347. CT of the abdomen pelvis without contrast: Increased dilatation of the right renal pelvis compared to previous. He does have decreased drainage in that right urostomy and increased blood. No left hydronephrosis. Destruction of the endplate of L3-L4 this suspicious for discitis. He is currently being treated for discitis. This was reviewed and interpreted by myself the emergency room physician. I also reviewed the radiology report. Consultation: I initially consulted Dr. Cartwright and he agrees that attempt at transfer to [place] if patient needs admitted. At the time patient's vitals were normal. However shortly after he became more septic appearing. I spoke again with Dr. Cartwright after attempting to have the patient transferred without success. There was a 1 week wait. He does recommend transfer to the hospitalist service and treatment for sepsis. Consultation: I spoke with Dr. Funez with the hospitalist service at [facility]. He accepts the patient to his service. I reviewed the patient's medical record. Reexamination: Went back to speak with patient and he had become more hypotensive and tachycardic. He seems like his pain is getting worse. He appears more ill. I believe he is becoming septic. Reexamination: Patient has stabilized some. His heart rate has come down quite a bit. He is less ill-appearing. He has responded to fluids and antibiotics. Assessment and plan: Chronic urinary obstruction/bladder issues Urinary tract infection Sepsis Malfunctioning nephrostomy tube Discitis ?Patient has become septic and has overtly infected appearing urine with leukocytosis. He is already on cephalosporin. I have advanced his antibiotic coverage to -2.5 L normal saline bolus. Fluid volumes based on ideal body weight. -Broad-spectrum antibiotics were administered. -Sepsis quality measures. -Lactic acid with a reflex was ordered. -Blood cultures were ordered. -I discussed the patient with the hospitalist on-call who is admitting the patient. - Discussed findings and plan with patient. Answered any questions. - All laboratory values were reviewed and interpreted personally by myself, the ER physician - All imaging was reviewed and interpreted personally by myself, the ER physician. - Evaluation and treatment of this problem were appropriate in the emergency setting -I spent a total of >35 minutes of critical care time managing the patient, independent of any other practitioner. -The time involved in the performance of separately reportable procedures was not counted towards critical care time. Lab Data 06/01/24 14:30 06/01/24 14:30 Radiology Impressions Abdomen/Pelvis CT 06/01/24 13:20 IMPRESSION: 1. Increased dilatation the RIGHT renal pelvis compared to previous. Recommend correlation with RIGHT nephrostomy tube drainage. Double-J ureteral stent appears in place. 2. No hydronephrosis in the LEFT kidney. 3. Destruction of the endplates at L3-4 suspicious for discitis. This is progressed since 03/09/2024 and is unchanged since 05/15/2024. Recommend correlation with history of infection and back pain. Notified Ricarda Elias MD at 06/01/2024 2:35 PM. Laboratory Results WBC 14.46 10^3/uL (3.29-11.43) H 06/01/24 14:30 RBC 4.39 10^6/uL (3.85-5.65) 06/01/24 14:30 Hgb 10.90 g/dL (11.27-16.99) L 06/01/24 14:30 Hct 36.9 % (37-53) L 06/01/24 14:30 MCV 84.1 fl (82-101) 06/01/24 14:30 MCH 24.8 pg (27-33) L 06/01/24 14:30 MCHC 29.5 g/dL (30-55) L 06/01/24 14:30 RDW 20.2 % (12.1-15.1) H 06/01/24 14:30 Plt Count 303 10^3/cmm (157-399) 06/01/24 14:30 MPV 10.0 fL (7.4-10.4) 06/01/24 14:30 Neut % (Auto) 69.5 % 06/01/24 14:30 Lymph % (Auto) 15.6 % 06/01/24 14:30 Carroll % (Auto) 7.6 % 06/01/24 14:30 Eos % (Auto) 5.8 % 06/01/24 14:30 Baso % (Auto) 0.9 % 06/01/24 14:30 Neut # (Auto) 10.05 10^3/uL (1.8-7.7) H 06/01/24 14:30 Lymph # (Auto) 2.3 10^3/uL (0.8-4.8) 06/01/24 14:30 Carroll # (Auto) 1.1 10^3/uL (0.2-0.9) H 06/01/24 14:30 Eos # (Auto) 0.8 10^3/uL (0.0-0.8) 06/01/24 14:30 Baso # (Auto) 0.1 10^3/uL (0.0-0.1) 06/01/24 14:30 Nucleated RBC % (auto) 0 % 06/01/24 14:30 Nucleated RBCs # 0.0 /100WBC 06/01/24 14:30 Sodium 132 mmol/L (136-145) L 06/01/24 14:30 Potassium 4.2 mmol/L (3.5-5.1) 06/01/24 14:30 Chloride 97 mmol/L (98-107) L 06/01/24 14:30 Carbon Dioxide 18 mmol/L (22-29) L 06/01/24 14:30 Anion Gap 21.2 (5-19) H 06/01/24 14:30 BUN 31 mg/dL (8-23) H 06/01/24 14:30 Creatinine 1.8 mg/dL (0.7-1.2) H 06/01/24 14:30 GFR Calculation Not Reportable 06/01/24 14:30 Glucose 347 mg/dL (65-115) H 06/01/24 14:30 POC Glucose 222 mg/dL (70-110) H 06/01/24 19:31 Calculated Osmolality 294 mOsm/kg (285-295) 06/01/24 14:30 Lactic Acid 3.8 mmol/L (0.5-2.2) H 06/01/24 14:30 Lactic Acid (Sepsis) 2.9 mmol/L (0.5-2.2) H 06/01/24 16:43 Calcium 9.0 mg/dL (8.5-10.5) 06/01/24 14:30 Total Bilirubin 0.3 mg/dL (0.15-1.2) 06/01/24 14:30 AST 17 U/L (0-40) 06/01/24 14:30 ALT 13 U/L (0-41) 06/01/24 14:30 Alkaline Phosphatase 137 U/L (40-130) H 06/01/24 14:30 C-Reactive Protein 29.5 mg/L (0.0-4.9) H 06/01/24 14:30 Total Protein 7.4 g/dL (6.6-8.7) 06/01/24 14:30 Albumin 3.1 g/dL (3.5-5.2) L 06/01/24 14:30 Globulin 4.3 g/dL (1.3-4.6) 06/01/24 14:30 Procalcitonin 0.21 ng/mL (0-0.5) 06/01/24 14:30 Urine Color Red (Yellow) A 06/01/24 17:16 Urine Color Yellow (Yellow) 06/01/24 17:16 Urine Appearance Cloudy (CLEAR) A 06/01/24 17:16 Urine Appearance Turbid (CLEAR) A 06/01/24 17:16 Urine pH 6.5 (5-7) 06/01/24 17:16 Urine pH 7.5 (5-7) 06/01/24 17:16 Ur Specific Sargeant 1.011 (1.005-1.030) 06/01/24 17:16 Ur Specific Sargeant 1.012 (1.005-1.030) 06/01/24 17:16 Urine Protein 2+ (Negative) A 06/01/24 17:16 Urine Protein 2+ (Negative) A 06/01/24 17:16 Urine Glucose (UA) 2+ (Normal) H 06/01/24 17:16 Urine Glucose (UA) 2+ (Normal) H 06/01/24 17:16 Urine Ketones Negative (Negative) 06/01/24 17:16 Urine Ketones Negative (Negative) 06/01/24 17:16 Urine Blood 3+ (Negative) A 06/01/24 17:16 Urine Blood 3+ (Negative) A 06/01/24 17:16 Urine Nitrate Negative (Negative) 06/01/24 17:16 Urine Nitrate Positive (Negative) A 06/01/24 17:16 Urine Bilirubin Negative (Negative) 06/01/24 17:16 Urine Bilirubin Negative (Negative) 06/01/24 17:16 Urine Urobilinogen 0.2 mg/dL (Negative) 06/01/24 17:16 Urine Urobilinogen 1.0 mg/dL (Negative) 06/01/24 17:16 Ur Leukocyte Esterase 3+ (Negative) A 06/01/24 17:16 Ur Leukocyte Esterase 3+ (Negative) A 06/01/24 17:16 Urine RBC 51-100 /hpf (0-2) H 06/01/24 17:16 Urine RBC >100 /hpf (0-2) H 06/01/24 17:16 Urine WBC >100 /hpf (0-5) H 06/01/24 17:16 Urine WBC >100 /hpf (0-5) H 06/01/24 17:16 Ur Squamous Epith Cells 0-4 /hpf (0-5) H 06/01/24 17:16 Ur Squamous Epith Cells 0-4 /hpf (0-5) H 06/01/24 17:16 Amorphous Sediment Not Reportable 06/01/24 17:16 Amorphous Sediment Not Reportable 06/01/24 17:16 Urine Bacteria 1+ /hpf (NONE) H 06/01/24 17:16 Urine Bacteria None /hpf (NONE) 06/01/24 17:16 Hyaline Casts 0-4 /lpf H 06/01/24 17:16 Hyaline Casts 5-10 /lpf H 06/01/24 17:16 Urine Mucus None /hpf 06/01/24 17:16 Urine Mucus Trace /hpf 06/01/24 17:16 Urine Yeast 3+ /hpf H 06/01/24 17:16 Urine Yeast Trace /hpf 06/01/24 17:16 All radiology interpretation(s) finalized by discharge Discharge Plan Discharge Patient Disposition: Xfer Short-Term Hosp Clinical Impression: Urinary tract infection, Sepsis, Malfunction of nephrostomy tube, Acute on chronic urinary retention, Discitis Condition: Stable Referrals: Trisha Urena MD [Primary Care Provider] - Coding 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
--- NOTE | 2024-06-01 14:20 | PC.PHAR ---
[facility] faxing med list-Gabriella stated she sent it but it is not in room and not in pt chart. 2:21pm
[2024-06-01 14:37] LABS: Basophils # 0.1 10^3/uL (0.0-0.1); Basophils % 0.9 %; Eosinophils # 0.8 10^3/uL (0.0-0.8); Eosinophils % 5.8 %; Hematocrit 36.9 % (37-53); Lymphocytes # 2.3 10^3/uL (0.8-4.8); Lymphocytes % 15.6 %; Mean Corpuscular HGB Conc 29.5 g/dL (30-55); Mean Corpuscular Hemoglobin 24.8 pg (27-33); Mean Corpuscular Volume 84.1 fl (82-101); Monocytes # 1.1 10^3/uL (0.2-0.9); Monocytes % 7.6 %; Neutrophils # 10.05 10^3/uL (1.8-7.7); Neutrophils % 69.5 %; Nucleated Red Blood Cells % 0 %; Platelet Count 303 10^3/cmm (157-399); Red Blood Count 4.39 10^6/uL (3.85-5.65); Red Cell Distribution Width 20.2 % (12.1-15.1); White Blood Count 14.46 10^3/uL (3.29-11.43)
[2024-06-01 14:59] LABS: Alanine Aminotransferase 13 U/L (0-41); Albumin Level 3.1 g/dL (3.5-5.2); Alkaline Phosphatase 137 U/L (40-130); Aspartate Amino Transferase 17 U/L (0-40); Blood Urea Nitrogen 31 mg/dL (8-23); C Reactive Protein 29.5 mg/L (0.0-4.9); Carbon Dioxide 18 mmol/L (22-29); Chloride 97 mmol/L (98-107); Creatinine Clr Calc Pharmacy 40.6029; Globulin 4.3 g/dL (1.3-4.6); Glucose 347 mg/dL (65-115); Lactic Sepsis W/Reflex 3.8 mmol/L (0.5-2.2); Osmolality Calculated 294 mOsm/kg (285-295); Sodium 132 mmol/L (136-145); Total Bilirubin 0.3 mg/dL (0.15-1.2); Total Protein 7.4 g/dL (6.6-8.7)
[2024-06-01 15:00] LABS: Anion Gap 21.2 (5-19); Potassium 4.2 mmol/L (3.5-5.1)
[2024-06-01 15:06] LABS: Procalcitonin 0.21 ng/mL (0-0.5)
[2024-06-01] MEDS: sodium chloride 0.9% 1,000 ML 999 ML IV ×2 (15:39→17:00)
[2024-06-01] MEDS: meropenem 500 mg SDV IVP (15:40)
[2024-06-01] MEDS: linezolid premix 600 MG/300 ML PREMIX 300 MG IV (15:42)
[2024-06-01 16:22] LABS: Reflex Lactate Order REFLEX LACTIC ORDERD
[2024-06-01] MEDS: sodium chloride 0.9% 500 ML 999 ML IV (17:07)
[2024-06-01 17:08] LABS: Lactic Acid level (Lactate) 2.9 mmol/L (0.5-2.2)
[2024-06-01 17:40] LABS: Bilirubin Urine Negative (Negative); Blood Urine 3+ (Negative); Glucose Urine UA 2+ (Normal); Ketones Urine Negative (Negative); Leukocyte Esterase Urine 3+ (Negative); Nitrate Urine Negative (Negative); Nitrate Urine Positive (Negative); Protein Urine 2+ (Negative); Specific Gravity, Urine 1.011 (1.005-1.030); Specific Gravity, Urine 1.012 (1.005-1.030); Urine Appearance Cloudy (CLEAR); Urine Appearance Turbid (CLEAR); Urine Color Yellow (Yellow); Urobilinogen Urine 0.2 mg/dL (Negative); pH Urine 6.5 (5-7); pH Urine 7.5 (5-7)
[2024-06-01 18:04] LABS: Urine Color Red (Yellow)
[2024-06-01 18:05] LABS: UA Manual Slide Review YES; UA Slide Review UA Slide Review Perf
[2024-06-01 18:06] LABS: Add Urine Culture? Yes; Bacteria Urine 1+ /hpf; Hyaline Casts Urine 0-4 /lpf; Mucus Urine TRACE /hpf; RBC Urine >100 /hpf (0-2); Squamous Epithelial Cell Urine 0-4 /hpf (0-5); WBC Urine >100 /hpf (0-5)
[2024-06-01 18:10] LABS: UA Manual Slide Review YES; UA Slide Review UA Slide Review Perf
[2024-06-01 18:11] LABS: Add Urine Culture? Yes; RBC Urine 51-100 /hpf (0-2); Squamous Epithelial Cell Urine 0-4 /hpf (0-5); WBC Urine >100 /hpf (0-5)
[2024-06-01] MEDS: HYDROcodone-acetaminophen 5-325 mg Tablet 1 TAB PO (19:27)
[2024-06-01 19:34] LABS: Glucose Point of Care 222 mg/dL (70-110)
[2024-06-01] MEDS: sodium chloride 0.9% 1,000 ML 75 ML IV (20:03)
[2024-06-01] MEDS: morphine 4 mg/mL SDV 1 mL 2 MG IVP (21:21)
== END 2024-06-01 22:07 | disposition short-term general hospital (02) ==
PROVIDERS: Emergency Provider Emergency Medicine; PCP Family Medicine
DX: N39.0 Urinary tract infection, site not specified (principal); A41.9 Sepsis, unspecified organism; M46.40 Discitis, unspecified, site unspecified; R33.8 Other retention of urine; N99.522 Malfunction of incontinent external stoma of urinary tract; G30.9 Alzheimer's disease, unspecified; F02.80 Dementia in other diseases classified elsewhere, unspecified severity, without behavioral disturbance, psychotic disturbance, mood disturbance, and anxiety; E11.40 Type 2 diabetes mellitus with diabetic neuropathy, unspecified; Z85.46 Personal history of malignant neoplasm of prostate; I10 Essential (primary) hypertension
CPT/HCPCS: 36415; 36416; 74176; 80053; 81001; 82962; 83605; 84145; 85025; 86140; 87040; 87086; 87106; 96361; 96365; 96375; 99285; J2020; J2185; J2270; J7030; J7040

== ENCOUNTER 2024-11-25 22:08 | Inpatient (IN) | payer OTHER, SELFPAY ==
[2024-11-25 22:19] VITALS: BP 99/60; PULSE 113; RESP 20; TEMP 37.2; O2SAT 99; BMI 27.3
--- NOTE | 2024-11-25 22:20 | XRR_ITS ---
PROCEDURE INFORMATION: Exam: XR Chest Exam date and time: 11/25/2024 10:22 PM Age: 74 years old Clinical indication: Other: Altered mental status TECHNIQUE: Imaging protocol: Radiologic exam of the chest. Views: 1 view. COMPARISON: CR XR chest 1V portable [id number] 06/21/2024 8:21 PM FINDINGS: Tubes, catheters and devices: Partially visualized catheter overlying the right hemidiaphragm. Lungs: Unremarkable. Pleural spaces: Unremarkable. Heart/Mediastinum: Nonenlarged heart. Bones/joints: No acute fracture. XR/XR chest 1V portable [id number] IMPRESSION: No acute abnormality.
--- NOTE | 2024-11-25 22:21 | W.ED.AMS ---
HPI - Altered Mental Status General: Chief Complaint: Altered Mental Status Stated Complaint: AMS, confusion Time Seen by Provider: 11/25/24 22:11 Source: EMS Mode of arrival: EMS Limitations: altered mental status History of Present Illness: Patient presents from [facility] with altered mental status and confusion. Patient is very poor historian and cannot give us any history. Related Data Home Medications ?Medication ?Instructions ?Recorded ?Confirmed fluticasone 100 mcg-salmeterol 50 1 inh inhalation BID 10/03/21 06/22/24 mcg/dose blistr powdr for inhalation (Wixela Inhub) rosuvastatin 40 mg tablet 40 mg PO BEDTIME@12/04/21 06/22/24 galantamine 4 mg tablet 4 mg PO BID 05/20/23 06/22/24 acetaminophen 325 mg tablet 650 mg PO Q6H PRN Pain 07/02/23 06/22/24 (Tylenol) bisacodyl 10 mg rectal suppository 10 mg RI DAILY PRN Constipation 07/02/23 06/22/24 (Dulcolax (bisacodyl)) menthol 0.44 %-zinc oxide 20.6 % See Rx Instructions .Route .COMPLEX 07/02/23 06/22/24 topical ointment (Calmoseptine) therapeutic multivitamin 1 tab PO DAILY@07/02/23 06/22/24 mometasone 50 mcg/actuation nasal 1 spray intranasal BID 08/04/23 06/22/24 spray albuterol sulfate 90 mcg/actuation 2 puff inhalation Q4H PRN Dyspnea 04/27/24 06/22/24 aerosol inhaler amiodarone 200 mg tablet (Pacerone) 200 mg PO DAILY 04/27/24 06/22/24 buspirone 10 mg tablet 10 mg PO BID PRN Anxiety 04/27/24 06/22/24 docusate sodium 100 mg capsule 100 mg PO BID 04/27/24 06/22/24 (Colace) furosemide 20 mg tablet 20 mg PO DAILY 04/27/24 06/22/24 pantoprazole 40 mg tablet,delayed 40 mg PO BID 04/27/24 06/22/24 release potassium chloride 10 mEq 10 meq PO DAILY 04/27/24 06/22/24 tablet,extended release insulin glargine 100 unit/mL (3 33 unit SUBCUT Q24H 06/01/24 06/22/24 mL) subcutaneous pen (Lantus Solostar U-100 Insulin) oxycodone 5 mg tablet 5 mg PO BID PRN Pain 06/01/24 06/22/24 Previous Rx's ?Medication ?Instructions ?Recorded flash glucose scanning reader #1 ea 08/25/23 (FreeStyle Jimi 2 Bland) FreeStyle Jimi 2 Sensor (flash #6 ea 12/11/23 glucose sensor) blood-glucose meter,continuous #1 ea 02/08/24 (Dexcom G7 Firefighter Type One) blood-glucose sensor (Dexcom G7 #3 ea 02/08/24 Sensor device) insulin aspart U-100 100 unit/mL See Rx Instructions .Route 05/03/24 (3 mL) subcutaneous pen (Novolog .COMPLEX #15 mL FlexPen U-100 Insulin aspart) metoprolol tartrate 50 mg tablet 12.5 mg (1/4 x 50 mg) PO BID 30 05/03/24 days #15 tabs magnesium hydroxide 400 mg/5 mL 20 ml PO BID PRN constipation #355 05/16/24 oral suspension (Milk of Magnesia) mL Allergies Allergy/AdvReac Type Severity Reaction Status Date / Time pollen extracts Allergy Unknown Verified 06/21/24 20:10 Review of Systems General: Reports: 10 or more systems reviewed and unremarkable except in HPI and below PFSH ED PFSH: Medical History Yeast UTI Hematuria due to acute cystitis Mild cognitive impairment with memory loss Bacteriuria Alzheimer disease 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 mellitus History of Doppler ultrasound 08/2021 venous no DVT BLE 08/2021 arterial patent vessels, left posterior tibial may be less than 60% stenosis, left dorsalis pedis not visualized Gait instability SARS-CoV-2 positive positive test 11/17/2021 symptoms weakness, hypoglycemia, altered mental status and low grade fever Anemia Intermittent self-catheterization of bladder due to urinary retention History of sleep study 02/22 limited sleep, no apnea noted but did have nocturnal hypoxemia, recommended to use nocturnal oxygen History of electromyography 01/23 Interpretation: The study provides electrodiagnostic evidence for an axonal sensorimotor polyneuropathy based on small or absent CMAPs and SNAPs with denervation seen distally on EMG. The study is limited for evaluation of lumbar radiculopathy related to the patient's anticoagulated state. History of echocardiogram 05/2021 EF 65% History of cardiovascular stress test 05/2021 normal EKG response, perfusion study without findings of ischemia Diabetes mellitus, type II Chronic anticoagulation Taken off Xarelto secondary to hematuria BPH loc w urin obs/LUTS Obstructive pyelonephritis 09/2021 required ureteral stent placement Left ureteral calculus Diabetic foot ulcer 08/2021 - treated with I&D, antibiotics and wound care clinic management Lumbar stenosis with neurogenic claudication 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 mellitus Cervicalgia of riskkjkl-nfugzms-spxid region Lumbar stenosis L2/3, L3/4, L4/L5, with radiculopathy right lower extremity H/O prostate cancer Obstructive sleep apnea Refuses CPAP HTN (hypertension) previously on treatment for high blood pressure Atrial fibrillation Surgical History Status post excisional debridement 08/2021 left foot History of laminectomy 03/25 bilateral with partial facetectomies at L2-3, L3-4, L4-[address] Smith Other postprocedural status history of radiofrequency ablation for back pain x 2 Status post laser lithotripsy of ureteral calculus (11/06/21) S/P ureteral stent placement (09/2021) subsequent removal H/O esophagogastroduodenoscopy (10/30/21) 10/2021 pedunculated polyps removed from first portion of duodenum, otherwise normal History of colonoscopy (10/30/21) 11/2021 diverticulosis of sigmoid colon and internal hemorrhoids, sessile polyps removed History of back surgery S/P tonsillectomy S/P appendectomy History of pilonidal cyst Family History Grandmother Heart disease Hypertension Grandfather Hypertension MATERNAL Diabetes Mother No problems noted. Father No problems noted. 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 Physical Exam Const: COMMON NORMALS: no acute distress, average body habitus, healthy appearing, alert and well nourished HENMT: COMMON NORMALS: normocephalic, atraumatic, hearing grossly normal bilaterally, external ears normal, Normal external nose present, moist oral mucous membranes and oropharynx normal HEAD & SCALP: normocephalic and atraumatic NOSE: Normal external nose present EXTERNAL EAR: Yes external ears normal Neck/C-Spine: COMMON NORMALS: no JVD Chest: COMMONS NORMALS: normal inspection of the chest and normal palpation of entire chest wall Resp: COMMON NORMALS: normal respiratory effort, No retractions, No use of accessory muscles and clear to auscultation bilaterally AUSCULTATION: clear to auscultation bilaterally Cardio: COMMON NORMALS: no JVD, regular rate, regular rhythm, S1 normal heart sound present, S2 normal heart sound present, No gallops present (Cardio), No clicks present (Cardio), No murmurs present (Cardio) and No rub (Cardio) RATE: regular rate RHYTHM: regular rhythm HEART SOUNDS: S1 normal heart sound present and S2 normal heart sound present GI: COMMON NORMALS: Normal to inspection, nondistended, normoactive bowel sounds present, Soft to palpation, non-tender, No hepatosplenomegaly present and no masses PALPATION: Yes Soft to palpation and Yes No hepatosplenomegaly present Neuro: SENSORIUM/ORIENTATION: Yes alert Course Vital Signs: Vital signs: Vital Signs Temperature 99 F 11/25/24 22:19 Pulse Rate 97 11/26/24 04:00 Respiratory Rate 18 11/26/24 04:00 Blood Pressure 107/70 11/26/24 03:45 Pulse Oximetry 93 11/26/24 04:00 MDM - Altered Mental Status Medical Decision Making Patient presents with altered mental status, white blood cell count 16.9, BUN/creatinine 21 and 1.3, chest x-ray no acute abnormality, baseline troponin 83, 2-hour troponin 81, CRP 121, initial lactic 5.0, repeat lactic 2.9, patient was given sepsis bolus and Zosyn. Urinalysis showed 2+ blood, 3+ leukocyte esterase, greater than 100 red cells and too numerous to count white cells, Dr. Juarez was consulted and requested to abdomen pelvis CT to rule out renal stones. Medical Records I reviewed the patient's medical records. Lab Data I reviewed the patient's lab results. 11/26/24 00:14 11/26/24 00:14 Radiology Impressions Chest X-Ray 11/25/24 22:20 IMPRESSION: No acute abnormality. Laboratory Results WBC 16.90 10^3/uL (3.29-11.43) H 11/26/24 00:14 Corrected WBC Cancelled 11/25/24 00:14 RBC 4.91 10^6/uL (3.85-5.65) 11/26/24 00:14 Hgb 13.30 g/dL (11.27-16.99) 11/26/24 00:14 Hct 41.5 % (37-53) 11/26/24 00:14 MCV 84.5 fl (82-101) 11/26/24 00:14 MCH 27.1 pg (27-33) 11/26/24 00:14 MCHC 32.0 g/dL (30-55) 11/26/24 00:14 RDW 17.8 % (12.1-15.1) H 11/26/24 00:14 Plt Count 427 10^3/cmm (157-399) H 11/26/24 00:14 MPV 10.1 fL (7.4-10.4) 11/26/24 00:14 Gran % Cancelled 11/25/24 00:14 Neut % (Auto) 74.2 % 11/26/24 00:14 Lymph % (Auto) 17.8 % 11/26/24 00:14 [place] % (Auto) 6.0 % 11/26/24 00:14 Eos % (Auto) 1.1 % 11/26/24 00:14 Baso % (Auto) 0.5 % 11/26/24 00:14 Neut # (Auto) 12.54 10^3/uL (1.8-7.7) H 11/26/24 00:14 Lymph # (Auto) 3.0 10^3/uL (0.8-4.8) 11/26/24 00:14 [place] # (Auto) 1.0 10^3/uL (0.2-0.9) H 11/26/24 00:14 Eos # (Auto) 0.2 10^3/uL (0.0-0.8) 11/26/24 00:14 Baso # (Auto) 0.1 10^3/uL (0.0-0.1) 11/26/24 00:14 Absolute Gran (auto) Cancelled 11/25/24 00:14 Nucleated RBC % (auto) 0 % 11/26/24 00:14 Nucleated RBCs # 0.0 /100WBC 11/26/24 00:14 Sodium 138 mmol/L (136-145) 11/26/24 00:14 Potassium 3.8 mmol/L (3.5-5.1) 11/26/24 00:14 Chloride 97 mmol/L (98-107) L 11/26/24 00:14 Carbon Dioxide 23 mmol/L (22-29) 11/26/24 00:14 Anion Gap 21.8 (5-19) H 11/26/24 00:14 BUN 21 mg/dL (8-23) 11/26/24 00:14 Creatinine 1.3 mg/dL (0.7-1.2) H 11/26/24 00:14 GFR Calculation Not Reportable 11/26/24 00:14 Glucose 187 mg/dL (65-115) H 11/26/24 00:14 Calculated Osmolality 294 mOsm/kg (285-295) 11/26/24 00:14 Lactic Acid 5.0 mmol/L (0.5-2.2) H* 11/26/24 00:14 Lactic Acid (Sepsis) 2.9 mmol/L (0.5-2.2) H 11/26/24 02:51 Calcium 9.5 mg/dL (8.5-10.5) 11/26/24 00:14 Magnesium 1.7 mg/dL (1.7-2.3) 11/26/24 00:14 Total Bilirubin 1.0 mg/dL (0.15-1.2) 11/26/24 00:14 AST 13 U/L (0-40) 11/26/24 00:14 ALT 9 U/L (0-41) 11/26/24 00:14 Alkaline Phosphatase 136 U/L (40-130) H 11/26/24 00:14 Troponin T Baseline 83 ng/L (0-15) H 11/26/24 00:14 Troponin T 120 Minute 81.79 ng/L (0-15) H 11/26/24 02:51 Delta Troponin T -1.21 ABS# (0-10) L 11/26/24 02:51 C-Reactive Protein 121.7 mg/L (0.0-4.9) H 11/26/24 00:14 Total Protein 6.6 g/dL (6.6-8.7) 11/26/24 00:14 Albumin 3.4 g/dL (3.5-5.2) L 11/26/24 00:14 Globulin 3.2 g/dL (1.3-4.6) 11/26/24 00:14 Lipase 27 U/L (13-60) 11/26/24 00:14 Procalcitonin 0.50 ng/mL (0-0.5) 11/26/24 00:14 Urine Color Yellow (Yellow) 11/26/24 03:38 Urine Appearance Turbid (CLEAR) A 11/26/24 03:38 Urine pH 8.0 (5-7) A 11/26/24 03:38 Ur Specific [place] 1.019 (1.005-1.030) 11/26/24 03:38 Urine Protein 3+ (Negative) A 11/26/24 03:38 Urine Glucose (UA) Negative (Normal) 11/26/24 03:38 Urine Ketones Trace (Negative) 11/26/24 03:38 Urine Blood 2+ (Negative) A 11/26/24 03:38 Urine Nitrate Negative (Negative) 11/26/24 03:38 Urine Bilirubin Negative (Negative) 11/26/24 03:38 Urine Urobilinogen 1.0 mg/dL (Negative) 11/26/24 03:38 Ur Leukocyte Esterase 3+ (Negative) A 11/26/24 03:38 Urine RBC >100 /hpf (0-2) H 11/26/24 03:38 Urine WBC Too numerous to cnt /hpf (0-5) H 11/26/24 03:38 Ur Squamous Epith Cells 0-4 /hpf (0-5) H 11/26/24 03:38 Amorphous Sediment Not Reportable 11/26/24 03:38 Urine Bacteria 1+ /hpf (NONE) H 11/26/24 03:38 Influenza A (PCR) Negative (Negative) 11/25/24 23:03 Influenza Type B (PCR) Negative (Negative) 11/25/24 23:03 RSV (PCR) Negative (Negative) 11/25/24 23:03 SARS-CoV-2 (PCR) Negative (Negative) 11/25/24 23:03 All radiology interpretation(s) finalized by discharge Discharge Plan Discharge Condition: Stable Prescriptions: No Action (DME) Dexcom G7 Sensor Device See Rx Instructions .Route Qty: 3 1RF Rx Instructions: As directed (DME) Dexcom G7 Firefighter Type One Misc See Rx Instructions .Route Qty: 1 0RF Rx Instructions: As directed (DME) FreeStyle Jimi 2 Bland Misc See Rx Instructions .Route Qty: 1 0RF Rx Instructions: As directed (DME) FreeStyle Jimi 2 Sensor Kit See Rx Instructions .ROUTE .MEDSUPPLY Qty: 6 1RF Rx Instructions: change every 14 days fluticasone propion-salmeterol [Wixela Inhub] 100-50 mcg/dose Blister With Device 1 inh INHALATION BID rosuvastatin 40 mg tablet 40 mg PO BEDTIME@19 bisacodyl [Dulcolax (bisacodyl)] 10 mg Suppository 10 mg RI DAILY PRN (Reason: Constipation) Rx Instructions: if no bm x 3 days menthol-zinc oxide [Calmoseptine] 0.44-20.6 % ointment See Rx Instructions .ROUTE .COMPLEX Rx Instructions: apply to bilateral buttocks every shift for prevention acetaminophen [Tylenol] 325 mg Tablet 650 mg PO Q6H PRN (Reason: Pain) therapeutic multivitamin Tablet 1 tab PO DAILY@07 buspirone 10 mg tablet 10 mg PO BID PRN (Reason: Anxiety) docusate sodium [Colace] 100 mg Capsule 100 mg PO BID furosemide 20 mg tablet 20 mg PO DAILY albuterol sulfate 90 mcg/actuation HFA aerosol inhaler 2 puff INHALATION Q4H PRN (Reason: Dyspnea) potassium chloride 10 mEq tablet extended release 10 meq PO DAILY pantoprazole 40 mg tablet,delayed release (DR/EC) 40 mg PO BID amiodarone [Pacerone] 200 mg tablet 200 mg PO DAILY metoprolol tartrate 50 mg Tablet 12.5 mg PO BID 30 Days Qty: 15 0RF insulin aspart U-100 [Novolog FlexPen U-100 Insulin] 100 unit/mL (3 mL) insulin pen See Rx Instructions .ROUTE .COMPLEX Qty: 15 0RF Rx Instructions: Inject, subcut, 3 times daily, after meals based on sliding scale BS 141-180=0 UNITS, 181-220=2 UNITS, 221-260=4 UNITS, 261-300=6 UNITS, 301-350=8 UNITS, 351-400=10 UNITS, 401-450=12 UNITS. IF BS GREATER THAN 450 GIVE 14 UNITS, IF BS GREATER THAN 500 CALL MD AND SEND TO ER IF LOWER THAN 60 AT ANY TIME. 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
[2024-11-25 22:49] VITALS: O2SAT 100
[2024-11-25 23:00] VITALS: PULSE 98; RESP 21; O2SAT 99
--- NOTE | 2024-11-25 23:00 | ECG_ITS ---
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1950 Requested By: Rob Johnson Order Number: [id number] Nilay MD: RAMANDEEP HYLTON Measurements Intervals [place] Rate: 100 P: 0 SC: 0 QRS: 112 QRSD: 123 T: 22 QT: 350 QTc: 452 Interpretive Statements ATRIAL FIBRILLATION WITH RAPID VENTRICULAR RESPONSE RIGHT BUNDLE BRANCH BLOCK [120+ ms QRS DURATION, UPRIGHT V1, 40+ ms S IN I/aVL/V4/V5/V6] LEFT POSTERIOR FASCICULAR BLOCK [QRS AXIS > 109, INFERIOR Q] Compared to ECG 06/22/2024 02:16:03 Left posterior fascicular block now present Atrial flutter no longer present Electronically Signed On 11-29-2024 23:42:13 HAND HEEL SEAT FITTER by RAMANDEEP HYLTON [id number]
[2024-11-25 23:15] VITALS: BP 112/77; RESP 19
[2024-11-25 23:46] VITALS: PULSE 95; RESP 19
[2024-11-26] VITALS (141 sets, daily range): BP systolic 87–169; BP diastolic 57–107; PULSE 70–126; RESP 12–31; TEMP 36.7; O2SAT 87–100
[2024-11-26 00:04] LABS: Influenza A NEGATIVE (Negative); Influenza B NEGATIVE (Negative); Respiratory Syncytial Virus Ce NEGATIVE (Negative); SARS-CoV-2 PCR NEGATIVE (Negative)
--- NOTE | 2024-11-26 00:20 | ECG_ITS ---
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1950 Requested By: Rob Johnson Order Number: [id number] Nilay MD: RAMANDEEP HYLTON Measurements Intervals [place] Rate: 113 P: 0 NV: 0 QRS: 83 QRSD: 110 T: 47 QT: 334 QTc: 459 Interpretive Statements ATRIAL FIBRILLATION WITH RAPID VENTRICULAR RESPONSE LOW QRS VOLTAGE IN PRECORDIAL LEADS [QRS DEFLECTION < 1.0 mV IN CHEST LEADS] RIGHT BUNDLE BRANCH BLOCK [120+ ms QRS DURATION, UPRIGHT V1, 40+ ms S IN I/aVL/V4/V5/V6] Compared to ECG 06/22/2024 02:16:03 Low QRS voltage now present Atrial flutter no longer present Electronically Signed On 11-29-2024 23:51:38 MANAGER LAB by RAMANDEEP HYLTON [id number]
--- NOTE | 2024-11-26 00:34 | PC.NURSE ---
Patient altered and becoming agitated. Patient repeatedly states to this RN You don't understand they're trying to kill me with visual hallucination as well. This nurse attempted to redirect patient. Dr. Johnson notified. Patient also refusing blood pressure at this time.
--- NOTE | 2024-11-26 00:44 | PC.NURSE ---
Attempted to call patient's daughter for an update with no answer.
[2024-11-26 01:04] LABS: Troponin(5th) Baseline 83 ng/L (0-15)
[2024-11-26 01:05] LABS: Alanine Aminotransferase 9 U/L (0-41); Albumin Level 3.4 g/dL (3.5-5.2); Alkaline Phosphatase 136 U/L (40-130); Anion Gap 21.8 (5-19); Aspartate Amino Transferase 13 U/L (0-40); Basophils # 0.1 10^3/uL (0.0-0.1); Basophils % 0.5 %; Blood Urea Nitrogen 21 mg/dL (8-23); C Reactive Protein 121.7 mg/L (0.0-4.9); Calcium 9.5 mg/dL (8.5-10.5); Carbon Dioxide 23 mmol/L (22-29); Chloride 97 mmol/L (98-107); Creatinine Clr Calc Pharmacy 51.1797; Eosinophils # 0.2 10^3/uL (0.0-0.8); Eosinophils % 1.1 %; Globulin 3.2 g/dL (1.3-4.6); Glucose 187 mg/dL (65-115); Hematocrit 41.5 % (37-53); Lipase 27 U/L (13-60); Lymphocytes % 17.8 %; Magnesium 1.7 mg/dL (1.7-2.3); Mean Corpuscular Hemoglobin 27.1 pg (27-33); Mean Corpuscular Volume 84.5 fl (82-101); Mean Platelet Volume 10.1 fL (7.4-10.4); Neutrophils # 12.54 10^3/uL (1.8-7.7); Neutrophils % 74.2 %; Nucleated Red Blood Cells % 0 %; Osmolality Calculated 294 mOsm/kg (285-295); Platelet Count 427 10^3/cmm (157-399); Potassium 3.8 mmol/L (3.5-5.1); Red Blood Count 4.91 10^6/uL (3.85-5.65); Red Cell Distribution Width 17.8 % (12.1-15.1); Reflex Lactate Order REFLEX LACTIC ORDERD; Sodium 138 mmol/L (136-145); Total Protein 6.6 g/dL (6.6-8.7)
[2024-11-26 03:21] LABS: Lactic Acid level (Lactate) 2.9 mmol/L (0.5-2.2); Troponin 5 2HR 81.79 ng/L (0-15)
[2024-11-26] MEDS: piperacillin-tazobactam 3.375 GM in sodium chloride 0.9% (plus) 50 ML IV ×3 (03:24→19:37)
[2024-11-26 03:27] LABS: Troponin 5 2HR Delta -1.21 ABS# (0-10)
--- NOTE | 2024-11-26 04:02 | PC.NURSE ---
0130: Patient pulled his IV out, Lactic 5. Dr. Johnson notified with no new orders.
--- NOTE | 2024-11-26 04:12 | PC.NURSE ---
0352: Purulent drainage and scant amounts blood coming from urethra after placement of straight catheter for urine sample. Catheter removed, lori care preformed and Dr. Johnson notified with no new orders.
[2024-11-26 04:20] LABS: Bilirubin Urine Negative (Negative); Blood Urine 2+ (Negative); Glucose Urine UA Negative (Normal); Ketones Urine Trace (Negative); Leukocyte Esterase Urine 3+ (Negative); Nitrate Urine Negative (Negative); Protein Urine 3+ (Negative); Specific Gravity, Urine 1.019 (1.005-1.030); Urine Appearance Turbid (CLEAR); Urine Color Yellow (Yellow)
[2024-11-26 04:47] LABS: Add Urine Culture? Yes; Add Urine Microscopic? YES; Bacteria Urine 1+ /hpf; RBC Urine >100 /hpf (0-2); Squamous Epithelial Cell Urine 0-4 /hpf (0-5); UA Manual Slide Review YES; WBC Urine TOO NUMEROUS TO CNT /hpf (0-5)
--- NOTE | 2024-11-26 04:57 | CTR_ITS ---
PROCEDURE INFORMATION: Exam: CT Abdomen And Pelvis Without Contrast Exam date and time: 11/26/2024 5:49 AM Age: 74 years old Clinical indication: Other: Hematuria/uti; Prior surgery; Surgery date: 1-6 months; Surgery type: Bilat nephrostomy. Appy; Hematuria with UTI; Additional info: Hematuria, UTI, altered mental status TECHNIQUE: Imaging protocol: Computed tomography of the abdomen and pelvis without contrast. Radiation optimization: All CT scans at this facility use at least one of these dose optimization techniques: automated exposure control; mA and/or kV adjustment per patient size (includes targeted exams where dose is matched to clinical indication); or iterative reconstruction. COMPARISON: CT abdomen pelvis wo con [id number] 06/22/2024 1:31 AM RADIATION DOSE METRICS: Total DLP (mGy-cm): 793.68 FINDINGS: Tubes, catheters and devices: Bilateral nephrostomy tubes are appropriately positioned. Heart: Trace pericardial effusion not significantly changed. Liver: Normal. No mass. Gallbladder and biliary ducts: Gallstones are noted. Pancreas: There is new stranding and induration about the pancreatic head concerning for pancreatitis and less likely duodenitis. Please correlate clinically. Spleen: Normal. No splenomegaly. Adrenal glands: Normal. No mass. Kidneys and ureters: No hydronephrosis. There is new mild stranding in the right renal hilum. This may represent scarring versus inflammatory changes possibly from urinary tract infection. Small nonobstructive right renal stone. Stomach and bowel: The rectum is moderately Appendix: No evidence of appendicitis. Intraperitoneal space: Unremarkable. No free air. No significant fluid collection. Vasculature: Calcified atherosclerotic plaque noted. Lymph nodes: Unremarkable. No enlarged lymph nodes. Urinary bladder: Bladder appears contracted very small and is not well-visualized. This is not significantly changed. Reproductive: Unremarkable as visualized. 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 This is unchanged. distended with retained stool. Soft tissues: Unremarkable. CT/CT kidney stone [id number] IMPRESSION: 1. There is new stranding and induration about the pancreatic head concerning for pancreatitis and less likely duodenitis. Please correlate clinically. 2. There is new mild stranding in the right renal hilum. This may represent scarring versus inflammatory changes possibly from urinary tract infection. 3. Bladder appears contracted very small and is not well-visualized. This is not significantly changed. 4. 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 This is unchanged. 5. The rectum is moderately distended with retained stool. Please correlate clinically for impaction.
[2024-11-26] MEDS: morphine 4 mg/mL SDV 1 mL 2 MG IVP (07:43)
[2024-11-26 07:58] LABS: Troponin 5 6HR 74.06 ng/L (0-15)
[2024-11-26 08:10] LABS: Troponin 5 6HR Delta -8.94 ng/L (0-12)
[2024-11-26 09:19] LABS: Erythrocyte Sedimentation Rate 23 mm/hr (0-10)
[2024-11-26 09:46] LABS: Thyroid Stimulating Hormone 1.17 uIU/mL (0.27-4.20)
[2024-11-26 09:57] LABS: Chol HDL Ratio 2.97 mg/dL (1.0-5.00); Cholesterol 98 mg/dL (0-200); HDL Cholesterol 33 mg/dL (60-100); LDL Cholesterol Calculated 32 mg/dL (50-129); LDL HDL Ratio 0.97 RATIO (0.00-3.22); Triglycerides 165 mg/dL (0-150)
[2024-11-26] MEDS: enoxaparin 40 mg/0.4 mL Syringe SUBCUT (10:00)
[2024-11-26] MEDS: acetaminophen 325 mg Tablet 650 MG PO (10:01)
[2024-11-26] MEDS: linezolid premix 600 MG/300 ML PREMIX 300 MG IV ×2 (10:01→22:17)
[2024-11-26] MEDS: pantoprazole 40 mg SDV IVP (10:01)
[2024-11-26 10:47] LABS: Estmated Average Glucose 203; Hemoglobin A1C 8.7 % (4.0-6.0)
[2024-11-26 11:17] LABS: Glucose Point of Care 250 mg/dL (70-110)
[2024-11-26] MEDS: HYDROMORPHONE HCL 0.5 MG/0.5 ML INJ 1 MG IVP ×3 (11:17→20:59)
--- NOTE | 2024-11-26 12:15 | CTR_ITS ---
PROCEDURE INFORMATION: Exam: CT Lumbar Spine Without Contrast Exam date and time: 11/26/2024 2:42 PM Age: 74 years old Clinical indication: Low back pain; Additional info: Discitis TECHNIQUE: Imaging protocol: Computed tomography of the lumbar spine without contrast. Radiation optimization: All CT scans at this facility use at least one of these dose optimization techniques: automated exposure control; mA and/or kV adjustment per patient size (includes targeted exams where dose is matched to clinical indication); or iterative reconstruction. COMPARISON: CT lumbar spine wo con* [id number] 06/22/2024 1:34 AM RADIATION DOSE METRICS: Total DLP (mGy-cm): 901.78 FINDINGS: Tubes, catheters and devices: Bilateral nephrostomy tubes are observed. Bones/joints: No acute fracture. Mild retrolisthesis of L3 onto L4 with multilevel anterior osteophyte bridging. Fusion of L2 and L3 vertebral bodies. Destructive endplate changes at inferior L3 and superior L4 with widening of the intervertebral space, raising concern for active discitis; osteomyelitis cannot be excluded. Diffuse sclerotic changes of L2-L5 vertebral bodies. Grade 1 anterolisthesis of L4 onto L5. Mild disc bulging at L1-L2 with mild central canal stenosis and bilateral neural foramina narrowing. Posterior osteophyte bridging at L3-L4 with ligamentous thickening and facet arthropathy, resulting in moderate stenosis and bilateral moderate neural foramina narrowing. Diffuse disc bulging at L3-L4 causing chrzhfyr-[id number]-drhqix central canal stenosis and marked bilateral neural foramina narrowing. Pancreas: Mild soft tissue stranding along the head of the pancreas; correlate with lipase levels to exclude acute pancreatitis. Soft tissues: Significant soft tissue stranding along L3-L4. CT/CT lumbar spine wo con* [id number] IMPRESSION: 1. Findings concerning for discitis/osteomyelitis at L3-L4 with destructive endplate changes, Advanced degenerative lumbar disease is present with retrolisthesis, anterolisthesis, fusion, and severe stenosis at L3-L4. Consider lumbar MRI with and without contrast for further evaluation. 2. Incidental mild pancreatic head stranding concerning for acute pancreatitis; correlate with lipase levels to exclude acute pancreatitis.
[2024-11-26] MEDS: insulin lispro 100 unit/1 mL SUBCUT ×2 (12:29→22:17)
--- NOTE | 2024-11-26 12:51 | PM.HP ---
Providers/Chief Complaint Admitting Physician: Omari Lopez MD Primary Care Provider: Trisha Urena MD Chief Complaint: AMS, confusion History of Present Illness Raphael Deal is a 74 year old male with a past medical history of bilateral nephrostomy tubes, history of recurrent UTIs, type 2 diabetes, history of atrial fibrillation not on anticoagulant therapy, due to history of hematuria/bleeding, history of vertebral osteomyelitis, who presents [facility] for altered mental status. Currently patient is alert to person, not to place, not to time, can follow commands at times but is easily confused. His only complaint is abdominal pain Review of Systems Const: Reports: fever(s) Resp: Denies: dyspnea GI: Reports: abdominal pain Medications/Allergies Home Medications ?Medication ?Instructions ?Recorded ?Confirmed ?Last Taken ?Type fluticasone 100 mcg-salmeterol 50 1 inh inhalation BID 10/03/21 11/26/24 11/25/24 06:00 History mcg/dose blistr powdr for inhalation (Wixela Inhub) acetaminophen 325 mg tablet 650 mg PO Q6H PRN Pain 07/02/23 11/26/24 11/21/24 19:45 History (Tylenol) bisacodyl 10 mg rectal suppository 10 mg AR DAILY PRN Constipation 07/02/23 11/26/24 03/31/24 History (Dulcolax (bisacodyl)) flash glucose scanning reader #1 ea 08/25/23 11/26/24 Unknown Rx (FreeStyle Jimi 2 [place]) FreeStyle Jimi 2 Sensor (flash #6 ea 12/11/23 11/26/24 Unknown Rx glucose sensor) blood-glucose meter,continuous #1 ea 02/08/24 11/26/24 Unknown Rx (Dexcom G7 Mononitrotoluene Operator) blood-glucose sensor (Dexcom G7 #3 ea 02/08/24 11/26/24 Unknown Rx Sensor device) albuterol sulfate 90 mcg/actuation 2 puff inhalation Q4H PRN Dyspnea 04/27/24 11/26/24 06/22/23 History aerosol inhaler docusate sodium 100 mg capsule 100 mg PO BID 04/27/24 11/26/24 06/01/24 History (Colace) furosemide 20 mg tablet 20 mg PO DAILY 04/27/24 11/26/24 11/25/24 06:00 History magnesium hydroxide 400 mg/5 mL 20 ml PO BID PRN constipation #355 05/16/24 11/26/24 Unknown Rx oral suspension (Milk of Magnesia) mL insulin glargine 100 unit/mL (3 15 unit SUBCUT DAILY 06/01/24 11/26/24 11/25/24 06:00 History mL) subcutaneous pen (Lantus Solostar U-100 Insulin) atorvastatin 80 mg tablet 80 mg PO DAILY 11/26/24 11/26/24 11/25/24 06:00 History cholecalciferol (vitamin D3) 25 25 mcg PO DAILY 11/26/24 11/26/24 11/25/24 06:05 History mcg (1,000 unit) tablet cyanocobalamin (vitamin B-12) 1,000 mcg PO DAILY 11/26/24 11/26/24 11/25/24 06:05 History 1,000 mcg tablet dextromethorphan-guaifenesin 10 5 - 10 ml PO Q6H PRN Congestion 11/26/24 11/26/24 Unknown History mg-100 mg/5 mL oral liquid digoxin 125 mcg (0.125 mg) tablet 125 mcg PO DAILY 11/26/24 11/26/24 11/25/24 06:00 History donepezil 5 mg tablet 5 mg PO DAILY 11/26/24 11/26/24 11/25/24 06:00 History ferrous sulfate 325 mg (65 mg 325 mg PO DAILY 11/26/24 11/26/24 11/25/24 06:00 History iron) tablet (FeroSul) finasteride 5 mg tablet 5 mg PO DAILY 11/26/24 11/26/24 11/25/24 06:00 History fluticasone propionate 50 1 spray intranasal DAILY 11/26/24 11/26/24 11/25/24 06:00 History mcg/actuation nasal spray,suspension hydrocodone 7.5 mg-acetaminophen 1 tab PO Q4H PRN Pain 11/26/24 11/26/24 11/25/24 11:45 History 325 mg tablet insulin lispro 100 unit/mL See Rx Instructions .Route .COMPLEX 11/26/24 11/26/24 11/25/24 16:00 History subcutaneous pen melatonin 1 mg tablet 1 mg PO DAILY PRN Sleep 11/26/24 11/26/24 11/24/24 18:50 History metformin 500 mg tablet 500 mg PO DAILY 11/26/24 11/26/24 11/25/24 06:00 History metoprolol tartrate 25 mg tablet 25 mg PO BID 11/26/24 11/26/24 11/25/24 06:00 History multivitamin with folic acid 400 1 tab PO DAILY 11/26/24 11/26/24 11/25/24 06:05 History mcg tablet (Daily-Marylou (with folic acid)) omeprazole 20 mg capsule,delayed 20 mg PO DAILY 11/26/24 11/26/24 11/25/24 06:00 History release ondansetron HCl 4 mg tablet 4 mg PO .BEFORE MEALS PRN Nausea 11/26/24 11/26/24 11/25/24 16:00 History And Vomiting silver sulfadiazine 1 % topical See Rx Instructions .Route .COMPLEX 11/26/24 11/26/24 11/25/24 07:00 History cream tamsulosin 0.4 mg capsule 0.4 mg PO BEDTIME 11/26/24 11/26/24 11/25/24 18:55 History Allergies Allergy/AdvReac Type Severity Reaction Status Date / Time pollen extracts Allergy Unknown Verified 06/21/24 20:10 PFSH Acute PFSH: Medical History Yeast UTI Hematuria due to acute cystitis Mild cognitive impairment with memory loss Bacteriuria Alzheimer disease 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 mellitus History of Doppler ultrasound 08/2021 venous no DVT BLE 08/2021 arterial patent vessels, left posterior tibial may be less than 60% stenosis, left dorsalis pedis not visualized Gait instability SARS-CoV-2 positive positive test 11/17/2021 symptoms weakness, hypoglycemia, altered mental status and low grade fever Anemia Intermittent self-catheterization of bladder due to urinary retention History of sleep study 02/22 limited sleep, no apnea noted but did have nocturnal hypoxemia, recommended to use nocturnal oxygen History of electromyography 01/23 Interpretation: The study provides electrodiagnostic evidence for an axonal sensorimotor polyneuropathy based on small or absent CMAPs and SNAPs with denervation seen distally on EMG. The study is limited for evaluation of lumbar radiculopathy related to the patient's anticoagulated state. History of echocardiogram 05/2021 EF 65% History of cardiovascular stress test 05/2021 normal EKG response, perfusion study without findings of ischemia Diabetes mellitus, type II Chronic anticoagulation Taken off Xarelto secondary to hematuria BPH loc w urin obs/LUTS Obstructive pyelonephritis 09/2021 required ureteral stent placement Left ureteral calculus Diabetic foot ulcer 08/2021 - treated with I&D, antibiotics and wound care clinic management Lumbar stenosis with neurogenic claudication 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 mellitus Cervicalgia of nuefvraq-wunzqkn-cwkys region Lumbar stenosis L2/3, L3/4, L4/L5, with radiculopathy right lower extremity H/O prostate cancer Obstructive sleep apnea Refuses CPAP HTN (hypertension) previously on treatment for high blood pressure Atrial fibrillation Surgical History Status post excisional debridement 08/2021 left foot History of laminectomy 03/25 bilateral with partial facetectomies at L2-3, L3-4, L4-[address] Smith Other postprocedural status history of radiofrequency ablation for back pain x 2 Status post laser lithotripsy of ureteral calculus (11/06/21) S/P ureteral stent placement (09/2021) subsequent removal H/O esophagogastroduodenoscopy (10/30/21) 10/2021 pedunculated polyps removed from first portion of duodenum, otherwise normal History of colonoscopy (10/30/21) 11/2021 diverticulosis of sigmoid colon and internal hemorrhoids, sessile polyps removed History of back surgery S/P tonsillectomy S/P appendectomy History of pilonidal cyst Family History Grandmother Heart disease Hypertension Grandfather Hypertension MATERNAL Diabetes Mother No problems noted. Father No problems noted. 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 Vitals/I&O/Wt Last Vital Signs Temp 99 F 11/25/24 22:19 Pulse 99 11/26/24 10:45 Resp 19 H 11/26/24 10:45 BP 129/68 11/26/24 10:45 Pulse Ox 97 11/26/24 12:13 O2 Del Method Room Air 11/26/24 12:13 11/25/24 11/26/24 11/26/24 22:59 06:59 14:59 Intake Total 0 / 0 50 / 50 300 / 300 Balance 0 / 0 50 / 50 300 / 300 Weight last 48 hrs Weight 81.647 kg Physical Exam Const: COMMON NORMALS: no acute distress HENMT: COMMON NORMALS: normocephalic HEAD & SCALP: normocephalic Eye: COMMON NORMALS: Equal, round and reactive pupils present Neck/C-Spine: COMMON NORMALS: no JVD Resp: COMMON NORMALS: normal respiratory effort, No retractions, No use of accessory muscles and clear to auscultation bilaterally AUSCULTATION: clear to auscultation bilaterally Cardio: COMMON NORMALS: regular rate, regular rhythm, S1 normal heart sound present and S2 normal heart sound present RATE: regular rate RHYTHM: regular rhythm HEART SOUNDS: S1 normal heart sound present and S2 normal heart sound present GI: COMMON NORMALS: Normal to inspection, nondistended, normoactive bowel sounds present, Soft to palpation and non-tender Back/Pelvis: OTHER: Bilateral nephrostomy tubes Extremity: COMMON NORMALS: no pedal edema Neuro: COMMON NORMALS: patient oriented x3, CN's II-XII intact bilaterally and moves all extremities Psych: COMMON NORMALS: mental status grossly normal Data 11/26/24 00:14 11/26/24 00:14 Micro: Microbiology 11/26/24 02:51 Blood Culture - Preliminary Blood SPECIMEN COLLECTED 11/26/24 01:52 Blood Culture - Preliminary Blood SPECIMEN COLLECTED A&P Assessment and plan (1) Acute encephalopathy: (2) ARI (acute kidney injury): (3) Acidosis, lactic: (4) Complicated UTI (urinary tract infection): Plan Sepsis -Sepsis features met given evidence of urinary tract infection, elevated lactic acid, encephalopathy, leukocytosis -Source is likely UTI Complicated UTI -With history of bilateral nephrostomy tubes - CT/CT kidney stone 90840 IMPRESSION: 1. There is new stranding and induration about the pancreatic head concerning for pancreatitis and less likely duodenitis. Please correlate clinically. 2. There is new mild stranding in the right renal hilum. This may represent scarring versus inflammatory changes possibly from urinary tract infection. 3. Bladder appears contracted very small and is not well-visualized. This is not significantly changed. 4. 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 This is unchanged. 5. The rectum is moderately distended with retained stool. Please correlate clinically for impaction. 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 -Orders sed rate, CRP, Pro-Vik -Does complain of back pain, CT lumbar spine -Broad-spectrum antibiotic therapy Atrial fibrillation, continue digoxin History of anemia, hematuria, not on anticoagulant therapy elevated troponins, serial EKGs, troponins, telemetry monitoring Full code Lovenox for DVT prophylaxis PDMP PDMP Reviewed: Not Reviewed Attestations Medical Necessity Statement*: Patient requires hospitalization, inpatient, greater than 2 midnights, for acute encephalopathy, recurrent UTI, lactic acidosis, NSTEMI Diagnoses Acute encephalopathy G93.40 RAI (acute kidney injury) N17.9 Acidosis, lactic E87.2 Complicated UTI (urinary tract infection) N39.0
[2024-11-26] MEDS: lactated ringers 500 ML 999 ML IV (15:50)
[2024-11-26 17:20] LABS: Lactate (Lactic Acid level) 1.3 mmol/L (0.5-2.2)
--- OUTSIDE RECORDS SUMMARY | 2024-11-26 18:45 | XMS_ITS | Continuity of Care Document ---
Author Organization [facility] Address [address] [place] [address] Care Team Providers Care Processing Manager Name Role Phone Omar ROBIN, Dr. Mckeon Attending Physician Medications Medication Frequency Instructions Diagnosis Start Date End Date Last Administered albuterol sulfate 90 mcg/actuation HFA aerosol inhaler Every 4 Hours - PRN 2 puffs, inhalation, Every 4 Hours - PRN, SOB OR WHEEZING atorvastatin 80 mg tablet Once A Day 1 tab, oral, Once A Day, TI for rosuvastatin 025 10/30/2024 10:04 AM cholecalciferol (vitamin D3) 25 mcg (1,000 unit) tablet Once A Day 1 tab, oral, Once A Day 025 10/30/2024 10:04 AM cyanocobalamin (vitamin B-12) 1,000 mcg tablet Once A Day 1 tab, oral, Once A Day 025 10/30/2024 10:04 AM digoxin 125 mcg (0.125 mg) tablet Once A Day 1 tab, oral, Once A Day 025 10/30/2024 10:04 AM donepezil 5 mg tablet Once A Day 1 tab, oral, Once A Day, TI for galantamine 025 10/30/2024 10:04 AM ferrous sulfate 325 mg (65 mg iron) tablet Once A Day Every Other Day 1 tab, oral, Once A Day Every Other Day, Dosing per TI 025 10/27/2024 09:41 AM finasteride 5 mg tablet Once A Day 1 tab, oral, Once A Day 10/30/2024 10:04 AM fluticasone propion-salmeterol 100-50 mcg/dose blister with device Twice A Day 1 inhalation, inhalation, Twice A Day, rinse mouth with water and spit after use 10/29/2024 09:19 PM fluticasone propionate 50 mcg/actuation spray,suspension Once A Day 1 spray both nostrils, nasal, Once A Day, TI for mometasone 10/28/2024 09:39 AM furosemide 20 mg tablet Twice A Day - PRN 1 tab, oral, Twice A Day - PRN, for edema Gemini-Tussin DM (dextromethorphan- guaifenesin) 10-100 mg/5 mL liquid Every 6 Hours - PRN 1-2 tsp, oral, Every 6 Hours - PRN 025 hydrocodone-acetam inophen 7.5-325 mg tablet Every 4 Hours - PRN 1 tab, oral, Every 4 Hours - PRN, for pain exempt R52 10/30/2024 09:07 AM insulin glargine-yfgn 100 unit/mL (3 mL) insulin pen Once A Day 12 units, subcutaneous, Once A Day 10/30/2024 07:34 AM insulin lispro 100 unit/mL insulin pen Before Meals and At Bedtime Per Sliding Scale, subcutaneous, Before Meals and At Bedtime, If Blood Sugar is 150 to 200, give 2 Units.If Blood Sugar is 201 to 250, give 4 Units.If Blood Sugar is 251 to 300, give 6 Units.If Blood Sugar is 301 to 350, give 8 Units.If Blood Sugar is 351 to 400, give 10 Units.If Blood Sugar is greater than 400, call MD. 10/30/2024 04:00 PM melatonin 1 mg tablet At Bedtime 1 tab, oral, At Bedtime 025 10/29/2024 09:19 PM metformin 500 mg tablet Once A Day 1 tab, oral, Once A Day, 8am 10/30/2024 10:04 AM metoprolol tartrate 25 mg tablet Twice A Day 1 tab, oral, Twice A Day 10/30/2024 10:04 AM omeprazole 20 mg capsule,delayed release(DR/EC) Once A Day 1 cap, oral, Once A Day, TI for pantoprazole 10/30/2024 05:53 AM tamsulosin 0.4 mg capsule At Bedtime 1 cap, oral, At Bedtime 10/29/2024 09:19 PM Thera-M (tlevkhlc-qaw-xgyl fum-folic ac) 19 mg iron- 400 mcg tablet Once A Day 1 tab, oral, Once A Day, TI for MVI with folic acid 10/30/2024 10:04 AM Advair Diskus (fluticasone propion-salmeterol ) 100-50 mcg/dose blister with device Twice A Day 1 puff, inhalation, Twice A Day 202410/04/2024 08:49 PM albuterol sulfate 90 mcg/actuation HFA aerosol inhaler As Needed 2 puffs, inhalation, As Needed, PRN Q 4 hrs. SOB 2024 cholecalciferol (vitamin D3) 25 mcg (1,000 unit) tablet Once A Day 1 tab, oral, Once A Day 202410/04/2024 09:42 AM coenzyme Q10 30 mg capsule Once A Day 1, oral, Once A Day 202410/04/2024 09:42 AM cyanocobalamin (vitamin B-12) 1,000 mcg tablet Once A Day 1 tab, oral, Once A Day 202410/04/2024 09:42 AM Daily-Marylou (with folic acid) (multivitamin with folic acid) 400 mcg tablet Once A Day 1 tab, oral, Once A Day 202410/04/2024 09:42 AM ertapenem 1 gram recon soln Once A Day 1 gram, intravenous, Once A Day, 5 day auto stop per TI 025 202410/18/2024 09:50 AM finasteride 5 mg tablet Once A Day 1 tab, oral, Once A Day N40.1 : Benign prostatic hyperplasia with lower urinary tract symptoms 202410/04/2024 09:42 AM furosemide 20 mg tablet As Needed 1 tab, oral, As Needed, PRN BID Edema 2024 gabapentin 400 mg capsule Three Times A Day 1, oral, Three Times A Day 202410/04/2024 08:49 PM galantamine 4 mg tablet Twice A Day 1 tab, oral, Twice A Day 202410/04/2024 08:49 PM hydrocodone-acetam inophen 7.5-325 mg tablet As Needed 1 tab, oral, As Needed, Q 4 hours PRN pain 202410/05/2024 06:44 AM insulin glargine-yfgn 100 unit/mL (3 mL) insulin pen Once A Morning 12 units, subcutaneous, Once A Morning 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 202410/04/2024 09:42 AM methocarbamol 750 mg tablet Every 6 Hours 1 tab, oral, Every 6 Hours 202410/05/2024 06:41 AM metoprolol tartrate 100 mg tablet Twice A Day 1 tab, oral, Twice A Day I12.9 : Hypertensive chronic kidney disease with stage 1 through stage 4 chronic kidney disease, or unspecified chronic kidney disease 202410/04/2024 08:49 PM pantoprazole 40 mg tablet,delayed release (DR/EC) Once A Day 1 tab, oral, Once A Day 202410/05/2024 06:41 AM rosuvastatin 40 mg tablet At Bedtime 1 tab, oral, At Bedtime 202410/04/2024 08:49 PM Tab-A-Marylou Multivitamin w-iron (multivitamin-iron -folic acid) 18-400 mg-mcg tablet Once A Day 1 tab, oral, Once A Day, TI for MVI with folic acid 025 202410/14/2024 09:52 AM tamsulosin 0.4 mg capsule At Bedtime 1 tab, oral, At Bedtime N40.1 : Benign prostatic hyperplasia with lower urinary tract symptoms 024 202410/04/2024 08:49 PM Problems Code Type Problem ICD Code Effective Date Status ICD-10 Osteomyelitis of vertebra, lumbar region M46.26 07/08/2024 Active ICD-10 Retention of urine, unspecified R33.9 06/2025 Active ICD-10 Anemia, unspecified D64.9 10/13/2024 Activ e ICD-10 Unspecified diastoli c (congestive) heart failure I50.30 10/13/2024 Active ICD-10 Urinary tract infection, site not specified N39 .0 10/13/2024 Active ICD-10 Personal history of malignant neoplasm of prostate Z85.46 10/13/2024 Active ICD-10 Unspecified urethral stricture, male, unspecified site N35.919 10/13/2024 Active ICD-10 Chronic obstructive pulmonary disease, unspecified J44.9 10/13/2024 Active ICD-10 Methicillin resistan t Staphylococcus aureus infection as the cause of diseases classified elsewhere B95.62 10/13/2024 Active ICD-10 Unspecified Escheric hia coli [E. 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 10/13/2024 Active ICD-10 Chronic kidney disease, unspecified N18.9 08/23/2024 Active ICD-10 Muscle weakness (generalized) M62.81 2023 Active ICD-10 Discitis, unspecified, lumbar region M46.46 07/08/2024 Active ICD-10 Enterocolitis due to Clostridium difficile, not specified as recurrent A04.72 07/08/2024 Active ICD-10 Paroxysmal atrial fibrillation I48.0 07/08 Active ICD-10 Benign prostatic hyp erplasia with lower urinary tract symptoms N40.1 07/08/2024 Active ICD-10 Unspecified hydronephrosis N13.30 Active ICD-10 Alzheimer's disease, unspecified G30.9 01/2024 Active ICD-10 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 07/08/2024 Active ICD-10 Hypertensive chronic kidney disease with stage 1 through stage 4 chronic kidney disease, or unspecified chronic kidney disease I12.9 07/08/2024 Active ICD-10 Other low back pain M54.59 07/08/2024 Activ e ICD-10 [facility]FP (current) use of insulin Z79.4 1 Active ICD-10 [employer] (current) use of oral hypoglycemic drugs Z79.84 07/08/2024 Active Current Allergies and Intolerances No known allergies Vital Signs Height: 68.0 in Date / Time Temperature Pulse (per minute) Respirations (per minute) Systolic BP (mmHg) Diastolic BP (mmHg) O2 Saturation (%) Weight BMI 2024 10:29 AM 180.0 lbs 27.3 7 2024 02:50 PM 95.9 F 78 18 130 72 98.0 186.8 lbs 28.4 2023 09:40 AM 90 128 62 2023 11:37 PM 88 134 74 2023 09:04 PM 87 145 73 2023 09:17 AM 84 124 64 2023 08:53 PM 80 130 76 2023 09:40 AM 77 126 77 2023 08:07 PM 64 110 72 2023 10:17 AM 61 102 67 2023 09:14 PM 88 123 64 2023 07:39 AM 97.9 F 20 95.0 200.8 lbs 30.5 3 2023 10:42 AM 203.8 lbs 30.9 8 2023 11:33 AM 200.8 lbs 30.5 3 2023 10:38 AM 97.3 F 18 94.0 2023 09:36 AM 198.8 lbs 30.2 2 2023 02:41 PM 97.6 F 16 97.0 2023 10:29 AM 98.3 F 18 97.0 2023 10:13 AM 195.8 lbs 29.7 7 2023 06:40 PM 98.0 F 14 99.0 2023 12:23 PM 98.5 F 18 96.0 2023 02:25 PM 97.5 F 16 98.0 2023 10:59 PM 98.3 F 17 96.0 2023 12:29 PM 98.7 F 2023 10:56 AM 18 97.0 Advance Directives Directive Note Full Code Insurance Providers Payer Policy type Group Name Group number Policy ID Address one [facility] [employer] [id number] Phone: Fax: Private Private Phone: Fax: Private Interest Private Phone: Fax: Immunizations No Immunizations are on file for this resident Procedures Not available for this record Results Name Date Time Positive/Negative Value Unit Range Blood Sugar 10/30/2024 04:00 PM 176.0 mg/dL Blood Sugar 10/30/2024 10:33 AM 204.0 mg/dL Blood Sugar 10/30/2024 06:48 AM 210.0 mg/dL Blood Sugar 10/29/2024 04:07 PM 180.0 mg/dL Blood Sugar 10/29/2024 10:46 AM 252.0 mg/dL Blood Sugar 10/29/2024 05:29 AM 249.0 mg/dL Blood Sugar 10/28/2024 11:01 PM 224.0 mg/dL Blood Sugar 10/28/2024 04:46 PM 245.0 mg/dL Blood Sugar 10/28/2024 11:44 AM 285.0 mg/dL Blood Sugar 10/28/2024 05:54 AM 240.0 mg/dL Blood Sugar 10/27/2024 11:28 PM 318.0 mg/dL Blood Sugar 10/27/2024 04:22 PM 234.0 mg/dL Blood Sugar 10/27/2024 11:12 AM 344.0 mg/dL Blood Sugar 10/27/2024 05:43 AM 245.0 mg/dL Blood Sugar 10/26/2024 10:02 PM 241.0 mg/dL Blood Sugar 10/26/2024 04:41 PM 216.0 mg/dL Blood Sugar 10/26/2024 11:22 AM 228.0 mg/dL Blood Sugar 10/26/2024 08:09 AM 225.0 mg/dL Blood Sugar 10/25/2024 04:34 PM 210.0 mg/dL Blood Sugar 10/25/2024 11:08 AM 253.0 mg/dL Blood Sugar 10/25/2024 06:53 AM 268.0 mg/dL Blood Sugar 10/24/2024 04:35 PM 265.0 mg/dL Blood Sugar 10/24/2024 11:01 AM 204.0 mg/dL Blood Sugar 10/24/2024 06:24 AM 237.0 mg/dL Blood Sugar 10/23/2024 08:04 PM 199.0 mg/dL Blood Sugar 10/23/2024 04:36 PM 228.0 mg/dL Blood Sugar 10/23/2024 10:17 AM 287.0 mg/dL Blood Sugar 10/23/2024 06:11 AM 224.0 mg/dL Blood Sugar 10/22/2024 08:51 PM 297.0 mg/dL Blood Sugar 10/22/2024 04:13 PM 244.0 mg/dL Blood Sugar 10/22/2024 11:55 AM 244.0 mg/dL Blood Sugar 10/22/2024 07:11 AM 178.0 mg/dL Blood Sugar 10/22/2024 01:56 AM 149.0 mg/dL Blood Sugar 10/21/2024 04:20 PM 210.0 mg/dL Blood Sugar 10/21/2024 10:57 AM 267.0 mg/dL Blood Sugar 10/21/2024 08:35 AM 94.0 mg/dL Blood Sugar 10/21/2024 12:16 AM 150.0 mg/dL Blood Sugar 10/20/2024 04:02 PM 165.0 mg/dL Blood Sugar 10/20/2024 10:56 AM 267.0 mg/dL Blood Sugar 10/20/2024 06:27 AM 158.0 mg/dL Blood Sugar 10/19/2024 08:34 PM 266.0 mg/dL Blood Sugar 10/19/2024 04:07 PM 321.0 mg/dL Blood Sugar 10/19/2024 10:53 AM 261.0 mg/dL Blood Sugar 10/19/2024 06:05 AM 144.0 mg/dL Blood Sugar 10/18/2024 04:52 PM 220.0 mg/dL Blood Sugar 10/18/2024 11:54 AM 264.0 mg/dL Blood Sugar 10/18/2024 06:06 AM 255.0 mg/dL Blood Sugar 10/17/2024 10:20 PM 192.0 mg/dL Blood Sugar 10/17/2024 04:33 PM 218.0 mg/dL Blood Sugar 10/17/2024 11:22 AM 227.0 mg/dL Blood Sugar 10/17/2024 11:22 AM 178.0 mg/dL Blood Sugar 10/17/2024 01:18 AM 267.0 mg/dL Blood Sugar 10/16/2024 04:30 PM 197.0 mg/dL Blood Sugar 10/16/2024 12:54 PM 216.0 mg/dL Blood Sugar 10/16/2024 06:10 AM 166.0 mg/dL Blood Sugar 10/15/2024 10:38 PM 229.0 mg/dL Blood Sugar 10/15/2024 03:20 PM 223.0 mg/dL Blood Sugar 10/15/2024 10:55 AM 221.0 mg/dL Blood Sugar 10/15/2024 06:37 AM 202.0 mg/dL Blood Sugar 10/14/2024 09:20 PM 289.0 mg/dL Blood Sugar 10/14/2024 04:15 PM 87.0 mg/dL Blood Sugar 10/14/2024 01:09 PM 270.0 mg/dL Blood Sugar 10/14/2024 10:17 AM 176.0 mg/dL Blood Sugar 10/13/2024 10:29 PM 229.0 mg/dL Blood Sugar 10/13/2024 06:53 PM 164.0 mg/dL Blood Sugar 10/05/2024 08:49 AM 257.0 mg/dL Blood Sugar 10/04/2024 08:48 PM 245.0 mg/dL Blood Sugar 10/04/2024 06:18 PM 235.0 mg/dL Blood Sugar 10/04/2024 11:31 AM 287.0 mg/dL Blood Sugar 10/04/2024 06:08 AM 286.0 mg/dL Blood Sugar 10/04/2024 06:08 AM 286.0 mg/dL Blood Sugar 10/03/2024 09:13 PM 250.0 mg/dL Blood Sugar 10/03/2024 04:58 PM 312.0 mg/dL Blood Sugar 10/03/2024 05:27 AM 190.0 mg/dL Blood Sugar 10/02/2024 11:03 PM 210.0 mg/dL Blood Sugar 10/02/2024 04:10 PM 252.0 mg/dL Blood Sugar 10/02/2024 12:32 PM 293.0 mg/dL Blood Sugar 10/02/2024 07:58 AM 339.0 mg/dL Blood Sugar 10/01/2024 10:44 PM 295.0 mg/dL Blood Sugar 10/01/2024 04:14 PM 301.0 mg/dL Blood Sugar 10/01/2024 11:12 AM 343.0 mg/dL Blood Sugar 10/01/2024 08:03 AM 252.0 mg/dL Blood Sugar 09/30/2024 07:47 PM 300.0 mg/dL Blood Sugar 09/30/2024 07:46 PM 300.0 mg/dL Blood Sugar 09/30/2024 06:51 PM 399.0 mg/dL Blood Sugar 09/30/2024 11:36 AM 255.0 mg/dL Blood Sugar 09/30/2024 05:36 AM 275.0 mg/dL Blood Sugar 09/29/2024 09:14 PM 292.0 mg/dL Blood Sugar 09/29/2024 09:13 PM 292.0 mg/dL Blood Sugar 09/29/2024 04:22 PM 227.0 mg/dL Blood Sugar 09/29/2024 11:27 AM 340.0 mg/dL Blood Sugar 09/29/2024 06:24 AM 328.0 mg/dL Blood Sugar 09/28/2024 10:49 PM 287.0 mg/dL Blood Sugar 09/28/2024 07:02 PM 199.0 mg/dL Blood Sugar 09/28/2024 12:47 PM 286.0 mg/dL Blood Sugar 09/28/2024 06:18 AM 254.0 mg/dL Blood Sugar 09/28/2024 03:06 AM 220.0 mg/dL Blood Sugar 09/27/2024 03:42 PM 320.0 mg/dL Blood Sugar 09/27/2024 11:20 AM 299.0 mg/dL Blood Sugar 09/27/2024 06:04 AM 174.0 mg/dL Blood Sugar 09/26/2024 10:47 PM 257.0 mg/dL Blood Sugar 09/26/2024 04:16 PM 233.0 mg/dL Blood Sugar 09/26/2024 11:33 AM 267.0 mg/dL Blood Sugar 09/26/2024 08:09 AM 293.0 mg/dL Blood Sugar 09/25/2024 08:35 PM 263.0 mg/dL Blood Sugar 09/25/2024 06:41 PM 335.0 mg/dL Blood Sugar 09/25/2024 11:28 AM 246.0 mg/dL Blood Sugar 09/25/2024 08:34 AM 242.0 mg/dL Blood Sugar 09/25/2024 08:34 AM 242.0 mg/dL Blood Sugar 09/24/2024 09:47 PM 239.0 mg/dL Blood Sugar 09/24/2024 06:48 PM 226.0 mg/dL Blood Sugar 09/24/2024 06:35 PM 239.0 mg/dL Blood Sugar 09/24/2024 12:50 PM 333.0 mg/dL Blood Sugar 09/24/2024 07:52 AM 306.0 mg/dL Blood Sugar 09/23/2024 10:18 PM 292.0 mg/dL Blood Sugar 09/23/2024 04:28 PM 216.0 mg/dL Blood Sugar 09/23/2024 11:09 AM 309.0 mg/dL Blood Sugar 09/23/2024 06:02 AM 271.0 mg/dL Blood Sugar 09/22/2024 10:58 PM 294.0 mg/dL Blood Sugar 09/22/2024 04:30 PM 207.0 mg/dL Blood Sugar 09/22/2024 12:02 PM 279.0 mg/dL Blood Sugar 09/22/2024 06:41 AM 170.0 mg/dL Blood Sugar 09/21/2024 10:01 PM 218.0 mg/dL Blood Sugar 09/21/2024 04:53 PM 262.0 mg/dL Blood Sugar 09/21/2024 11:41 AM 333.0 mg/dL Blood Sugar 09/21/2024 05:18 AM 263.0 mg/dL Blood Sugar 09/21/2024 05:17 AM 263.0 mg/dL Blood Sugar 09/20/2024 08:34 PM 300.0 mg/dL Blood Sugar 09/20/2024 08:32 PM 300.0 mg/dL Blood Sugar 09/20/2024 07:35 PM 352.0 mg/dL Blood Sugar 09/20/2024 07:34 PM 171.0 mg/dL Blood Sugar 09/20/2024 06:33 AM 220.0 mg/dL Blood Sugar 09/19/2024 11:21 PM 228.0 mg/dL Blood Sugar 09/19/2024 09:24 PM 228.0 mg/dL Blood Sugar 09/19/2024 07:58 PM 240.0 mg/dL Blood Sugar 09/19/2024 12:44 PM 284.0 mg/dL Blood Sugar 09/19/2024 05:43 AM 154.0 mg/dL Blood Sugar 09/18/2024 08:45 PM 246.0 mg/dL Blood Sugar 09/18/2024 04:29 PM 260.0 mg/dL Blood Sugar 09/18/2024 11:00 AM 252.0 mg/dL Blood Sugar 09/18/2024 07:35 AM 99.0 mg/dL Blood Sugar 09/18/2024 05:56 AM 99.0 mg/dL Blood Sugar 09/17/2024 08:31 PM 293.0 mg/dL Blood Sugar 09/17/2024 04:36 PM 240.0 mg/dL Blood Sugar 09/17/2024 11:07 AM 203.0 mg/dL Blood Sugar 09/17/2024 08:12 AM 193.0 mg/dL Blood Sugar 09/17/2024 06:01 AM 193.0 mg/dL Blood Sugar 09/16/2024 08:42 PM 220.0 mg/dL Blood Sugar 09/16/2024 06:40 PM 164.0 mg/dL Blood Sugar 09/16/2024 12:20 PM 235.0 mg/dL Blood Sugar 09/16/2024 05:41 AM 183.0 mg/dL Blood Sugar 09/15/2024 08:33 PM 221.0 mg/dL Blood Sugar 09/15/2024 04:06 PM 212.0 mg/dL Blood Sugar 09/15/2024 11:43 AM 297.0 mg/dL Blood Sugar 09/15/2024 06:19 AM 213.0 mg/dL Blood Sugar 09/14/2024 10:02 PM 177.0 mg/dL Blood Sugar 09/14/2024 03:59 PM 234.0 mg/dL Blood Sugar 09/14/2024 10:43 AM 183.0 mg/dL Blood Sugar 09/14/2024 07:40 AM 186.0 mg/dL Blood Sugar 09/13/2024 08:33 PM 158.0 mg/dL Blood Sugar 09/13/2024 03:36 PM 324.0 mg/dL Blood Sugar 09/13/2024 10:52 AM 309.0 mg/dL Blood Sugar 09/13/2024 07:35 AM 441.0 mg/dL Blood Sugar 09/12/2024 08:13 PM 180.0 mg/dL Blood Sugar 09/12/2024 06:16 PM 174.0 mg/dL Blood Sugar 09/12/2024 11:23 AM 313.0 mg/dL Blood Sugar 09/12/2024 05:21 AM 191.0 mg/dL Blood Sugar 09/11/2024 09:06 PM 308.0 mg/dL Blood Sugar 09/11/2024 03:43 PM 288.0 mg/dL Blood Sugar 09/11/2024 03:43 PM 288.0 mg/dL Blood Sugar 09/11/2024 11:03 AM 237.0 mg/dL Blood Sugar 09/11/2024 11:02 AM 237.0 mg/dL Blood Sugar 09/11/2024 07:50 AM 199.0 mg/dL Blood Sugar 09/11/2024 07:49 AM 199.0 mg/dL Blood Sugar 09/10/2024 08:31 PM 299.0 mg/dL Blood Sugar 09/10/2024 04:27 PM 271.0 mg/dL Blood Sugar 09/10/2024 11:25 AM 357.0 mg/dL Blood Sugar 09/10/2024 07:55 AM 120.0 mg/dL Blood Sugar 09/09/2024 08:39 PM 240.0 mg/dL Blood Sugar 09/09/2024 04:28 PM 265.0 mg/dL Blood Sugar 09/09/2024 08:18 AM 189.0 mg/dL Blood Sugar 09/09/2024 08:17 AM 189.0 mg/dL Blood Sugar 09/08/2024 08:43 PM 227.0 mg/dL Blood Sugar 09/08/2024 04:35 PM 203.0 mg/dL Blood Sugar 09/08/2024 10:33 AM 225.0 mg/dL Blood Sugar 09/08/2024 07:17 AM 242.0 mg/dL Blood Sugar 09/07/2024 08:24 PM 281.0 mg/dL Blood Sugar 09/07/2024 03:40 PM 308.0 mg/dL Blood Sugar 09/07/2024 11:01 AM 292.0 mg/dL Blood Sugar 09/07/2024 06:19 AM 184.0 mg/dL Blood Sugar 09/06/2024 09:52 PM 241.0 mg/dL Blood Sugar 09/06/2024 04:22 PM 189.0 mg/dL Blood Sugar 09/06/2024 11:30 AM 305.0 mg/dL Blood Sugar 09/06/2024 06:19 AM 216.0 mg/dL Blood Sugar 09/05/2024 08:33 PM 255.0 mg/dL Blood Sugar 09/05/2024 06:58 PM 234.0 mg/dL Blood Sugar 09/05/2024 12:50 PM 251.0 mg/dL Blood Sugar 09/05/2024 06:01 AM 285.0 mg/dL Blood Sugar 09/04/2024 07:58 PM 300.0 mg/dL Blood Sugar 09/04/2024 04:26 PM 299.0 mg/dL Blood Sugar 09/04/2024 04:26 PM 299.0 mg/dL Blood Sugar 09/04/2024 11:19 AM 210.0 mg/dL Blood Sugar 09/04/2024 11:18 AM 210.0 mg/dL Blood Sugar 09/04/2024 08:16 AM 184.0 mg/dL Blood Sugar 09/04/2024 08:16 AM 184.0 mg/dL Blood Sugar 09/03/2024 05:09 PM 141.0 mg/dL Blood Sugar 09/03/2024 11:25 AM 207.0 mg/dL Blood Sugar 09/03/2024 11:25 AM 203.0 mg/dL Blood Sugar 09/03/2024 07:24 AM 207.0 mg/dL Blood Sugar 09/02/2024 06:20 PM 169.0 mg/dL Blood Sugar 09/02/2024 12:12 PM 222.0 mg/dL Blood Sugar 09/02/2024 05:40 AM 176.0 mg/dL Blood Sugar 09/01/2024 08:43 PM 249.0 mg/dL Blood Sugar 09/01/2024 04:46 PM 240.0 mg/dL Blood Sugar 09/01/2024 04:46 PM 240.0 mg/dL Blood Sugar 09/01/2024 04:45 PM 275.0 mg/dL Blood Sugar 09/01/2024 05:16 AM 154.0 mg/dL Blood Sugar 08/31/2024 08:49 PM 231.0 mg/dL Blood Sugar 08/31/2024 08:49 PM 231.0 mg/dL Blood Sugar 08/31/2024 04:43 PM 234.0 mg/dL Blood Sugar 08/31/2024 11:51 AM 194.0 mg/dL Blood Sugar 08/31/2024 07:20 AM 239.0 mg/dL Blood Sugar 08/30/2024 08:59 PM 178.0 mg/dL Blood Sugar 08/30/2024 06:44 PM 219.0 mg/dL Blood Sugar 08/30/2024 12:57 PM 228.0 mg/dL Blood Sugar 08/30/2024 06:12 AM 180.0 mg/dL Blood Sugar 08/29/2024 08:33 PM 170.0 mg/dL Blood Sugar 08/29/2024 06:30 PM 273.0 mg/dL Blood Sugar 08/29/2024 11:57 AM 300.0 mg/dL Blood Sugar 08/29/2024 08:27 AM 274.0 mg/dL Blood Sugar 08/28/2024 09:44 PM 194.0 mg/dL Blood Sugar 08/28/2024 04:37 PM 275.0 mg/dL Blood Sugar 08/28/2024 11:36 AM 227.0 mg/dL Blood Sugar 08/28/2024 04:54 AM 275.0 mg/dL Blood Sugar 08/27/2024 08:49 PM 232.0 mg/dL Blood Sugar 08/27/2024 04:21 PM 199.0 mg/dL Blood Sugar 08/27/2024 11:21 AM 214.0 mg/dL Blood Sugar 08/27/2024 08:05 AM 272.0 mg/dL Blood Sugar 08/26/2024 09:06 PM 218.0 mg/dL Blood Sugar 08/26/2024 04:01 PM 277.0 mg/dL Blood Sugar 08/26/2024 11:24 AM 225.0 mg/dL Blood Sugar 08/26/2024 06:41 AM 204.0 mg/dL Blood Sugar 08/25/2024 08:59 PM 220.0 mg/dL Blood Sugar 08/25/2024 07:48 PM 277.0 mg/dL Blood Sugar 08/25/2024 11:05 AM 280.0 mg/dL Blood Sugar 08/25/2024 05:05 AM 197.0 mg/dL Blood Sugar 08/25/2024 03:48 AM 199.0 mg/dL Blood Sugar 08/25/2024 03:47 AM 199.0 mg/dL Blood Sugar 08/24/2024 04:50 PM 201.0 mg/dL Blood Sugar 08/24/2024 11:38 AM 231.0 mg/dL Blood Sugar 08/24/2024 06:38 AM 145.0 mg/dL Blood Sugar 08/23/2024 08:00 PM 0.0 mg/dL Blood Sugar 08/23/2024 08:00 PM 139.0 mg/dL Blood Sugar 08/23/2024 11:10 AM 216.0 mg/dL Blood Sugar 08/23/2024 06:49 AM 158.0 mg/dL Blood Sugar 08/22/2024 09:51 PM 275.0 mg/dL Blood Sugar 08/22/2024 03:51 PM 200.0 mg/dL Blood Sugar 08/22/2024 03:50 PM 200.0 mg/dL Blood Sugar 08/22/2024 11:47 AM 205.0 mg/dL Blood Sugar 08/22/2024 11:47 AM 205.0 mg/dL Blood Sugar 08/22/2024 08:08 AM 156.0 mg/dL Blood Sugar 08/22/2024 07:13 AM 156.0 mg/dL Blood Sugar 08/22/2024 07:13 AM 156.0 mg/dL Blood Sugar 08/21/2024 08:42 PM 224.0 mg/dL Blood Sugar 08/21/2024 04:21 PM 218.0 mg/dL Blood Sugar 08/21/2024 10:40 AM 251.0 mg/dL Blood Sugar 08/21/2024 05:40 AM 160.0 mg/dL Blood Sugar 08/20/2024 09:34 PM 201.0 mg/dL Blood Sugar 08/20/2024 04:34 PM 208.0 mg/dL Blood Sugar 08/20/2024 03:37 PM 143.0 mg/dL Blood Sugar 08/20/2024 06:40 AM 184.0 mg/dL Blood Sugar 08/19/2024 08:16 PM 286.0 mg/dL Blood Sugar 08/19/2024 07:20 PM 192.0 mg/dL Blood Sugar 08/19/2024 07:20 PM 192.0 mg/dL Blood Sugar 08/19/2024 02:34 PM 185.0 mg/dL Blood Sugar 08/19/2024 06:02 AM 155.0 mg/dL Blood Sugar 08/18/2024 10:54 PM 262.0 mg/dL Blood Sugar 08/18/2024 04:47 PM 256.0 mg/dL Blood Sugar 08/18/2024 11:14 AM 227.0 mg/dL Blood Sugar 08/18/2024 05:22 AM 224.0 mg/dL Blood Sugar 08/17/2024 08:46 PM 249.0 mg/dL Blood Sugar 08/17/2024 05:56 PM 233.0 mg/dL Blood Sugar 08/17/2024 11:52 AM 150.0 mg/dL Blood Sugar 08/17/2024 11:50 AM 150.0 mg/dL Blood Sugar 08/17/2024 06:02 AM 195.0 mg/dL Blood Sugar 08/16/2024 07:36 PM 253.0 mg/dL Blood Sugar 08/16/2024 04:36 PM 241.0 mg/dL Blood Sugar 08/16/2024 11:04 AM 284.0 mg/dL Blood Sugar 08/16/2024 11:02 AM 284.0 mg/dL Blood Sugar 08/16/2024 07:19 AM 275.0 mg/dL Blood Sugar 08/16/2024 05:27 AM 275.0 mg/dL Blood Sugar 08/15/2024 11:11 PM 265.0 mg/dL Blood Sugar 08/15/2024 11:00 PM 265.0 mg/dL Blood Sugar 08/15/2024 07:09 PM 299.0 mg/dL Blood Sugar 08/15/2024 11:28 AM 233.0 mg/dL Blood Sugar 08/15/2024 06:34 AM 169.0 mg/dL Blood Sugar 08/14/2024 10:55 PM 280.0 mg/dL Blood Sugar 08/14/2024 04:07 PM 281.0 mg/dL Blood Sugar 08/14/2024 11:21 AM 230.0 mg/dL Blood Sugar 08/14/2024 06:40 AM 168.0 mg/dL Blood Sugar 08/13/2024 11:25 PM 253.0 mg/dL Blood Sugar 08/13/2024 05:51 PM 220.0 mg/dL Blood Sugar 08/13/2024 04:51 PM 279.0 mg/dL Blood Sugar 08/13/2024 05:55 AM 259.0 mg/dL Blood Sugar 08/12/2024 10:15 PM 299.0 mg/dL Blood Sugar 08/12/2024 04:59 PM 262.0 mg/dL Blood Sugar 08/12/2024 11:12 AM 217.0 mg/dL Blood Sugar 08/12/2024 06:15 AM 184.0 mg/dL Blood Sugar 08/11/2024 10:58 PM 290.0 mg/dL Blood Sugar 08/11/2024 03:19 PM 251.0 mg/dL Blood Sugar 08/11/2024 11:32 AM 236.0 mg/dL Blood Sugar 08/11/2024 05:47 AM 222.0 mg/dL Blood Sugar 08/10/2024 10:11 PM 281.0 mg/dL Blood Sugar 08/10/2024 07:32 PM 273.0 mg/dL Blood Sugar 08/10/2024 01:11 PM 255.0 mg/dL Blood Sugar 08/10/2024 06:35 AM 218.0 mg/dL Blood Sugar 08/09/2024 11:19 PM 209.0 mg/dL Blood Sugar 08/09/2024 04:04 PM 342.0 mg/dL Blood Sugar 08/09/2024 10:51 AM 311.0 mg/dL Blood Sugar 08/09/2024 06:16 AM 282.0 mg/dL Blood Sugar 08/08/2024 07:29 PM 276.0 mg/dL Blood Sugar 08/08/2024 03:37 PM 258.0 mg/dL Blood Sugar 08/08/2024 06:41 AM 196.0 mg/dL Blood Sugar 08/07/2024 08:09 PM 237.0 mg/dL Blood Sugar 08/07/2024 04:27 PM 265.0 mg/dL Blood Sugar 08/07/2024 10:58 AM 256.0 mg/dL Blood Sugar 08/07/2024 05:14 AM 286.0 mg/dL Blood Sugar 08/06/2024 09:10 PM 300.0 mg/dL Blood Sugar 08/06/2024 09:08 PM 300.0 mg/dL Blood Sugar 08/06/2024 03:08 PM 258.0 mg/dL Blood Sugar 08/06/2024 10:18 AM 253.0 mg/dL Blood Sugar 08/06/2024 05:46 AM 199.0 mg/dL Blood Sugar 08/05/2024 08:30 PM 300.0 mg/dL Blood Sugar 08/05/2024 04:38 PM 276.0 mg/dL Blood Sugar 08/05/2024 12:28 PM 251.0 mg/dL Blood Sugar 08/05/2024 06:20 AM 226.0 mg/dL Blood Sugar 08/05/2024 06:17 AM 226.0 mg/dL Blood Sugar 08/04/2024 08:20 PM 337.0 mg/dL Blood Sugar 08/04/2024 06:24 PM 326.0 mg/dL Blood Sugar 08/04/2024 11:55 AM 290.0 mg/dL Blood Sugar 08/04/2024 06:18 AM 202.0 mg/dL Blood Sugar 08/03/2024 10:39 PM 305.0 mg/dL Blood Sugar 08/03/2024 10:39 PM 195.0 mg/dL Blood Sugar 08/03/2024 04:51 PM 256.0 mg/dL Blood Sugar 08/03/2024 11:41 AM 221.0 mg/dL Blood Sugar 08/03/2024 06:38 AM 217.0 mg/dL Blood Sugar 08/02/2024 09:05 PM 334.0 mg/dL Blood Sugar 08/02/2024 10:48 AM 250.0 mg/dL Blood Sugar 08/02/2024 05:08 AM 191.0 mg/dL Blood Sugar 08/01/2024 09:05 PM 221.0 mg/dL Goals Goal Date Raphael will maintain adequate nutrition al concerns through next review. 10/18/2024 Will be able to express simp le wants/needs to staff daily for 120 days from update/last review AND/OR Will continue to make eye contact when spoken to daily thru 120 days from update/last review AND/OR Will continue to respond verbally to others daily thru 120 days from update/last review AND/OR Will have needs anticipated by staff daily thru 120days from update/last review AND/OR Will make simple choices daily thru 120 days from update/last review AND/OR Will not exhibit complications r/t s/sx of delirium thru 120days from update/last review AND/OR Will not express distress r/t hallucinations/delusions thru 120 days from update/last review AND/OR Will participate in at least one out of room activity daily thru 120days from update/last review AND/OR Will remain oriented to self thru 120 days from update/last review 10/18/2024 Will have a BM at least ever y 3 days for 120 days since update/last review AND/OR will not experience any complications r/t to colostomy for 120 days from update/ last review 01/14/2025 Wish for resuscitation will be honored thru 120days from update/last review 01/14/2025 Will continue to gain indepe ndence with therapy to perform mobility, self-care. Will have clean, neat appearance daily. Will participate in self-care as able daily thru 120days from update/last review 01/14/2025 Will have urinary diversion managed appropriately as evidence by: drainage appropriate amount/ type/ color/ odor; stoma the correct size, pink, free of breakdown, or infection; surrounding skin remaining free of breakdown, rash, or infection. 01/14/2025 Will not exhibit any s/sx of UTI thru 120 days from update/ last review AND/OR Will not exhibit s/sx sepsis r/t UTI thru 120 days from update/last review 01/14/2025 Raphael will have blood gluc ose ranging WNL and absence of signs of hypoglycemia or hyperglycemia. 01/14/2025 Raphael 's ulcer will heal without compl ications. 01/14/2025 Raphael will verbalize reduction of pain . 01/14/2025 Raphael will not exhibit respiratory dis tress. 01/14/2025 Raphael will get rest and sleep at night 01/14/2025 Social History Subject Status Smoking status Never smoker Encounters Admission Date Discharge Date Description MRN Visit Count 07/08/2024 13:35 LTPAC Admission [id number]
--- OUTSIDE RECORDS SUMMARY | 2024-11-26 18:46 | XMS_ITS | Continuity of Care Document ---
Author Organization [facility] Address [address] [place] [address] Care Team Providers Care Spice Room Worker Name Role Phone Dr. Vinnie Garcia DO Attending Physician Medications Medication Frequency Instructions Diagnosis Start Date End Date Last Administered albuterol sulfate 90 mcg/actuation HFA aerosol inhaler Every 4 Hours - PRN 2 puff, inhalation, Every 4 Hours - PRN, for shortness of breath or wheezing 11/18/19 atorvastatin 80 mg tablet Once A Day 1 tab, oral, Once A Day 11/18/1911/20/2024 07:58 AM cholecalciferol (vitamin D3) 25 mcg (1,000 unit) tablet Once A Day 1 tab, oral, Once A Day 11/18/1911/20/2024 07:58 AM cyanocobalamin (vitamin B-12) 1,000 mcg tablet Once A Day 1 tab, oral, Once A Day 11/18/19 25 11/20/2024 07:58 AM Daily-Marylou (with folic acid) (multivitamin with folic acid) 400 mcg tablet Once A Day 1 tab, oral, Once A Day 11/18/1911/20/2024 07:58 AM dextromethorphan-g uaifenesin 10-100 mg/5 mL liquid Every 6 Hours - PRN 5-10 mL, oral, Every 6 Hours - PRN, for congestion 11/18/19 digoxin 125 mcg (0.125 mg) tablet Once A Day 1 tab, oral, Once A Day 11/18/1911/20/2024 07:58 AM donepezil 5 mg tablet Once A Day 1 tab, oral, Once A Day 11/18/1911/20/2024 07:58 AM Dulcolax (bisacodyl) (bisacodyl) 10 mg suppository Once A Day - PRN 1 suppository, rectal, Once A Day - PRN, Give rectally if can't take p/o, if no results from MOM 11/17/19 ferrous sulfate 325 mg (65 mg iron) tablet Once A Day Every Other Day 1 tab, oral, Once A Day Every Other Day 11/19/1911/19/2024 08:56 AM finasteride 5 mg tablet Once A Day 1 tab, oral, Once A Day 11/18/1911/20/2024 07:58 AM fluticasone propion-salmeterol 100-50 mcg/dose blister with device Twice A Day 1 inhalation, inhalation, Twice A Day, rinse mouth with water and spit after use 11/18/1911/20/2024 07:58 AM fluticasone propionate 50 mcg/actuation spray,suspension Once A Day 1 spray, nasal, Once A Day, in each nostril 11/18/1911/20/2024 07:58 AM furosemide 20 mg tablet Twice A Day - PRN 1 tab, oral, Twice A Day - PRN, for edema 11/18/19 hydrocodone-acetam inophen 7.5-325 mg tablet Every 4 Hours - PRN 1 tab, oral, Every 4 Hours - PRN, for pain Exempt [id number] 11/18/1911/20/2024 08:21 AM insulin glargine-yfgn 100 unit/mL (3 mL) insulin pen Once A Day 12 units, subcutaneous, Once A Day 11/18/1911/20/2024 07:20 AM insulin lispro 100 unit/mL insulin pen Before Meals and At Bedtime Per Sliding Scale, subcutaneous, Before Meals and At Bedtime, If Blood Sugar is less than 60, call MD.If Blood Sugar is 201 to 250, give 2 Units.If Blood Sugar is 251 to 300, give 4 Units.If Blood Sugar is 301 to 350, give 6 Units.If Blood Sugar is 351 to 400, give 8 Units. 11/18/1911/20/2024 01:30 PM melatonin 1 mg tablet At Bedtime 1 tab, oral, At Bedtime 11/18/1911/19/2024 09:34 PM metformin 500 mg tablet Once A Day 1 tab, oral, Once A Day 11/18/1911/20/2024 07:58 AM metoprolol tartrate 25 mg tablet Twice A Day 1 tab, oral, Twice A Day 11/18/1911/20/2024 07:58 AM omeprazole 20 mg capsule,delayed release(DR/EC) Once A Day 1 cap, oral, Once A Day 11/18/1911/20/2024 07:54 AM silver sulfadiazine 1 % cream Every Shift as directed, topical, Every Shift, Right buttock: Apply to right buttock open area q shift and saji 11/18/1911/19/2024 09:48 PM tamsulosin 0.4 mg capsule At Bedtime 1 cap, oral, At Bedtime 11/18/1911/19/2024 09:34 PM Tylenol (acetaminophen) 325 mg tablet Every 6 Hours - PRN 2 tabs/650mg, oral, Every 6 Hours - PRN, as needed for PRN pain/increased temp May give rectally if necessary 11/17/19 insulin lispro 100 unit/mL insulin pen Before Meals and At Bedtime Per Sliding Scale, subcutaneous, Before Meals and At Bedtime, If Blood Sugar is less than 60, call MD.If Blood Sugar is 201 to 250, give 2 Units.If Blood Sugar is 251 to 300, give 4 Units.If Blood Sugar is 301 to 350, give 6 Units.If Blood Sugar is 351 to 400, give 0 Units.If Blood Sugar is greater than 400, call MD. 11/18/19 025 11/18/2024 04:21 PM Problems No ICD problems have been recorded Current Allergies and Intolerances Category Substance Type Reaction Severity Begin Date Status Drug Allergy No known drug allergies Allergy 05/2022 Active Vital Signs Height: 68.0 in Date / Time Temperature Pulse (per minute) Respirations (per minute) Systolic BP (mmHg) Diastolic BP (mmHg) O2 Saturation (%) Weight BMI 2024 01:08 PM 184.2 lbs 28.0 2024 07:57 AM 97.3 F 96 18 106 73 97.0 2024 09:48 PM 98.0 F 70 16 136 78 95.0 2024 03:05 PM 185.8 lbs 28.2 5 2024 10:46 AM 98.0 F 79 18 104 46 98.0 2024 04:19 AM 98.0 F 70 16 112 80 95.0 2024 03:03 PM 97.7 F 91 20 159 97 99.0 186.4 lbs 28.3 4 2023 07:40 AM 97.6 F 105 18 107 69 99.0 2023 07:31 PM 98.2 F 105 20 104 69 95.0 2023 07:54 AM 97.4 F 86 16 120 74 97.0 2023 10:46 PM 97.0 F 70 16 112 78 95.0 2023 07:18 AM 97.3 F 68 19 109 63 94.0 Advance Directives Directive Note Full Code Insurance Providers Payer Policy type Group Name Group number Policy ID Address Ph one Medicare Part A Medicare Part A [id number] Phone: Fax: [facility] Like Medicare Part A [id number] Phone: Fax: Private Private Phone: Fax: Private Interest Private Phone: Fax: Private Co A Private Phone: Fax: Immunizations Vaccine Histotechnician Date Status Dose Series Complete COVID-19 Vaccine 11/18/2024 Refused Influenza Vaccine Alfuria Quadrivalent 07/29/2023 Completed Influenza Vaccine 11/17/2024 Refused Pneumococcal Vaccine 07/30/2023 Completed RSV Vaccine Pfizer 07/30/2023 Completed Procedures Not available for this record Results Name Date Time Positive/Negative Value Unit Range Blood Sugar 11/20/2024 10:41 AM 250.0 mg/dL Blood Sugar 11/20/2024 06:21 AM 268.0 mg/dL Blood Sugar 11/19/2024 09:47 PM 181.0 mg/dL Blood Sugar 11/19/2024 03:40 PM 249.0 mg/dL Blood Sugar 11/19/2024 11:30 AM 208.0 mg/dL Blood Sugar 11/19/2024 06:22 AM 292.0 mg/dL Blood Sugar 11/18/2024 07:02 PM 374.0 mg/dL Blood Sugar 11/18/2024 04:21 PM 232.0 mg/dL Goals Goal Date ADL approaches will meet the resident?s needs to enhance ability, maintain abilities, or provide quality. 09/14/2024 Will have positive responses to activities of my choice weekly through next assessment. 09/14/2024 Raphael will remain safe and happy withi n the facility. 09/14/2024 Comfort needs will be met thru 120 days from update/last review 09/14/2024 Raphael will have no in faci lity falls through next lookback period/ review. 09/14/2024 Advanced directives will be honored as outlined by patient/family on daily basis thru 120days from update/last review 09/14/2024 Will adjust to change in rel ationships and accept support from staff for 120days from update/last review AND/OR Will be at ease interacting with others, expressing preferences daily for 120days from update/last review 09/14/2024 Resident will improve muscle tone and st rength of BLE's. 09/14/2024 Will have a BM at least ever y 3 days for 120 days since update/last review AND/OR will not experience any complications r/t to colostomy for 120 days from update/ last review AND/OR Will not experience any GI complications for 120 days since update/last review AND/OR Will remain clean, dry between incontinent episodes thru 120days from update/last review 09/14/2024 Raphael will maintain nutritional status through next review 09/14/2024 Resident will return to pre-delirium sta tus. 09/14/2024 Resident's skin will remain intact. 09/04 Encounters Admission Date Discharge Date Description MRN Visit Count 11/18/2024 13:03 LTPAC Admission [id number]
--- OUTSIDE RECORDS SUMMARY | 2024-11-26 18:46 | XMS_ITS | Clinical Summary ---
Author Organization [facility] [address] [place] [address] Drive Address [address] [place] [address] [place] [address] Care Team Providers Care Saw Edge Fuser Circular Name Role Phone Unavailable Primary Care Provider Unavailabl e Allergies No known active allergies Medications antipyrine-farrukh ocaine (AURODEX) 5.4-1.4 % DropsIndication s:Allergic rhinitis Administer 3 Drops in both ears every 3 hours as needed for Pain. 10 mL 0 5 Active mometasone (NASONEX) 50 mcg/actuation [place], Non-AerosolIndi cations:Allergi c rhinitis Administer 1 [place] in each nostril 2 times daily. 17 Gram 0 5 Active Active Problems No known active problems Social History Tobacco Use Types Packs/Day Years Used Date Smoking Tobacco: Never Assessed Sex and Gender Information Value Date Recorded Sex Assigned at Not on file Legal Sex Male 5:52 PM [employer] Gender Identity Not on file Sexual Orientation Not on file Last Filed Vital Signs Vital Sign Reading Time Taken Comments Blood Pressure 111/73 10/17/2014 5:38 PM [employer] Pulse 107 10/17/2014 5:38 PM [employer] Temperature 37.1 ??C (98.8 ??F) 10/17/2014 5:38 PM CS T Respiratory Rate 18 10/17/2014 5:38 PM [employer] Oxygen Saturation 99% 10/17/2014 5:38 PM [employer] Inhaled Oxygen Concentration - - Weight 108.6 kg (239 lb 6.4 oz) 10/17/2014 5:38 PM [employer] Height 172.7 cm (5' 8 ) 10/17/2014 5:38 PM [employer] Body Mass Index 36.4 10/17/2014 5:38 PM [employer] Plan of Treatment Health Maintenance Due Date Last Done Comments DTAP/TDAP/TD VACCINES (1 - Tdap) 02/10/1968 COLORECTAL SCREENING 1994 Colorectal Cancer Screening 1994 FIT-DNA Q 3 years 1994 FIT/FOBT Q 1 year 1994 Flex Sig/CT Colonography Q 5 years 1994 PNEUMOCOCCAL VACCINE 65+ YEARS (1 of 1 - PCV) 02/09/19 99 ZOSTER VACCINE (1 of 2) 1999 RSV VACCINE (60+ or ) (1 - 1-dose 75+ series) 02/10/2024 INFLUENZA VACCINE (#1) 2024 Insurance MEDICARE PART A AND B
--- OUTSIDE RECORDS SUMMARY | 2024-11-26 18:46 | XMS_ITS | Encounter Summary ---
Author Organization [facility] Address [address] [place] [address] Care Team Providers Care Rougher For Cement Name Role Phone Unavailable Primary Care Provider Unavailabl e Encounter Details Date Type Department Care Team (Late st Contact Info) Description 11/22/2024 External Device Data [facility] ABSTRACTION Provider, Abstract NO ADDRESS ON FILE Social History Tobacco Use Types Packs/Day Years Used Date Smoking Tobacco: Never Smokeless Tobacco: Never Alcohol Use Standard Drinks/Week Comments Never 0 (1 standard drink = 0.6 oz pur e alcohol) Feeling Safe Answer Date Recorded Are you in a relationship wi th someone who hurts you emotionally and/or physically? 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
--- OUTSIDE RECORDS SUMMARY | 2024-11-26 18:46 | XMS_ITS ---
Author Organization Unknown Medications Date Medication Dosage DosageUnit StartDate StopDate StopReason Active DoseQuantity DoseUnit Dispense DispenseUnit Refills NdcCode DrugCode PharmacyId IsPrescription MappedMedication Srcstatus 05/26 00:00 :00 Galantamine Hydrobromid e 4 MG Tablet 1 [id number] 0 406 Taking 04/04 00:00 :00 Galantamine Hydrobromid e 4 MG Tablet 1 [id number] 0 406 Taking 03/23 00:00 :00 Galantamine Hydrobromid e 4 MG Tablet 1 [id number] 0 406 Taking 05/26 00:00 :00 MiraLax 17 GM/SCOO P Powder 1 [id number] 454 Not Taking 04/04 00:00 :00 MiraLax 17 GM/SCOO P Powder 1 [id number] 454 Taking 03/23 00:00 :00 MiraLax 17 GM/SCOO P Powder 1 [id number] 454 Taking 05/26 00:00 :00 traMADol HCl 50 MG Tablet 03/23/2024 00:00:00 1 [id number] 0 101 P Not Taking 04/04 00:00 :00 traMADol HCl 50 MG Tablet 03/23/2024 00:00:00 1 [id number] 0 101 P Taking 03/23 00:00 :00 traMADol HCl 50 MG Tablet 03/23/2024 00:00:00 1 [id number] 0 101 P Taking
--- OUTSIDE RECORDS SUMMARY | 2024-11-26 18:46 | XMS_ITS | Continuity of Care Document ---
Author Organization [employer] ([facility]) Address [address] [place] [address] Insurance Providers Payer Plan Claims Address Claims Phone Policy Number Group Number Relation Employer Guarantor Name Guarantor Guarantor Address Guarantor Phone MEDIC ARE tel:[phone] Self Raphael Deal [address] [place] [id number] [facility] ARE MEDIC ARE [place]IN [place]ANDAE [address] [address], [place] [address] tel:[phone] [id number] Self Raphael Deal [address] [place] [id number] [employer] [address], [place] [address] [id number] Self Raphael Deal [address] [place] [id number] Problems Condition ICD9 code ICD10 code SNOMED code Start Date End Date S tatus Paroxysmal atrial fibrillation I48.0 05/27/2023 Active oil heaterman (current) use of anticoagulants Z79.01 06/14/2024 Active Muscle weakness (generalized) M62.81 05/04/2024 Active Difficulty in walking, not elsewhere classified R26.2 05/04/2024 Active Need for assistance with personal care Z74.1 05/04/2024 Active Pressure ulcer of right buttock, stage 3 L89.313 06/04/2024 Active Acute pyelonephritis N10 03/15/2024 Active Encounter for attention to other artificial openings of urinary tract Z43.6 03/15/2024 Active Hydronephrosis with ureteral stricture, not elsewhere classified N13.1 10/15/2023 Acti ve Other specified disorders of bladder N32.89 10/15/2023 Active Presence of urogenital implants Z96.0 10/15/2023 Active Tubulo-interstitial nephritis, not specified as acute or chronic N12 08/07/2023 Activ e Hypertensive heart and chronic kidney disease with heart failure and stage 1 through stage 4 chronic kidney disease, or unspecified chronic kidney disease I13.0 05/27/2023 Active Nonrheumatic mitral (valve) insufficiency I34.0 03/29/2024 Act arsenio Nonrheumatic tricuspid (valve) insufficiency I36.1 03/29/2024 Act arsenio Other hypertrophic cardiomyopathy I42.2 03/29/2024 Active 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 05/03/2024 Active Chronic obstructive pulmonary disease, unspecified J44.9 06/02/2023 Active oil heaterman (current) use 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 Z79.51 05/27/2023 Activ e Obstructive sleep apnea (adult) (pediatric) G47.33 05/27/2023 Activ e Chronic kidney disease, stage 3 unspecified N18.30 03/15/2024 Activ e Urinary tract infection, site not specified N39.0 05/21/2024 Active Alzheimer's disease, unspecified G30.9 03/15/2024 Active Dementia in other diseases classified elsewhere without behavioral disturbance F02.80 03/15/2024 Ac tive Type 2 diabetes mellitus with hyperglycemia E11.65 05/27/2023 Active Type 2 diabetes mellitus with 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 05/27/2023 Active Type 2 diabetes mellitus with diabetic neuropathy, unspecified E11.40 06/02/2023 Active oil heaterman (current) use of insulin Z79.4 05/27/2023 Active oil heaterman (current) use of oral hypoglycemic drugs Z79.84 07/17/2023 Active Spinal stenosis, lumbar region with neurogenic claudication M48.062 05/28/2023 Active Mixed hyperlipidemia E78.2 08/07/2023 Active Anemia, unspecified D64.9 07/17/2023 A ctive Insomnia, unspecified G47.00 06/04/2023 Active Obesity, unspecified E66.9 05/27/2023 Active Body mass index (BMI) 34.0-34.9, adult Z68.34 02/06/2024 Active Neuromuscular dysfunction of bladder, 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 05/28/2023 A ctive Personal history of urinary (tract) infections Z87.440 07/17/2023 Active Benign prostatic hyperplasia with lower urinary tract symptoms N40.1 05/27/2023 Ac tive Other obstructive and reflux uropathy N13.8 05/27/2023 Active Other muscle spasm M62.838 07/08/2023 Ac tive Mild cognitive impairment, so stated G31.84 07/08/2023 Act arsenio Constipation, unspecified K59.00 05/15/2024 Active Gastro-esophageal reflux disease without esophagitis K21.9 11/05/2023 Active Other seasonal allergic rhinitis J30.2 07/08/2023 Active Paroxysmal atrial fibrillation I48.0 11/18/2024 Active Malignant neoplasm of prostate C61 11/18/2024 Active Benign prostatic hyperplasia without lower urinary tract symptoms N40.0 11/18/2024 Ac tive Presence of urogenital implants Z96.0 11/18/2024 Active Pressure ulcer of right buttock, stage 2 L89.312 11/18/2024 Active Type 2 diabetes mellitus with 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 11/18/2024 Active oil heaterman (current) use of insulin Z79.4 11/18/2024 Active oil heaterman (current) use of oral hypoglycemic drugs Z79.84 11/18/2024 Active Hypertensive heart and chronic kidney disease with heart failure and stage 1 through stage 4 chronic kidney disease, or unspecified chronic kidney disease I13.0 11/18/2024 Active Heart failure, unspecified I50.9 11/18/2024 Active Chronic kidney disease, stage 3 unspecified N18.30 11/18/2024 Activ e Chronic obstructive pulmonary disease, unspecified J44.9 11/18/2024 Active detention (current) use 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 Z79.51 11/18/2024 Activ e Alzheimer's disease, unspecified G30.9 11/18/2024 Active Other iron deficiency anemias D50.8 11/18/2024 Active Mixed hyperlipidemia E78.2 11/18/2024 Active Insomnia, unspecified G47.00 11/18/2024 Active Moderate protein-calorie malnutrition E44.0 11/18/2024 Active Gastro-esophageal reflux disease without esophagitis K21.9 11/18/2024 Active Type 2 diabetes mellitus with hyperglycemia E11.65 11/21/2024 Active Results Test Value / Unit Interpretation Reference Ran ge Blood chemistry[[id number]]? Glucose [Mass/volume] in Ser um or Plasma [2345-7] 385 mg/dL N Blood chemistry[[id number]]? Glucose [Mass/volume] in Ser um or Plasma [2345-7] 267 mg/dL N Blood chemistry[[id number]]? Glucose [Mass/volume] in Ser um or Plasma [2345-7] 222 mg/dL N Blood chemistry[[id number]]? Glucose [Mass/volume] in Ser um or Plasma [2345-7] 215 mg/dL N Blood chemistry[[id number]]? Glucose [Mass/volume] in Ser um or Plasma [2345-7] 213 mg/dL N Blood chemistry[[id number]]? Glucose [Mass/volume] in Ser um or Plasma [2345-7] 395 mg/dL N Blood chemistry[[id number]]? Glucose [Mass/volume] in Ser um or Plasma [2345-7] 222 mg/dL N Blood chemistry[[id number]]? Glucose [Mass/volume] in Ser um or Plasma [2345-7] 275 mg/dL N Blood chemistry[[id number]]? Glucose [Mass/volume] in Ser um or Plasma [2345-7] 248 mg/dL N Blood chemistry[[id number]]? Glucose [Mass/volume] in Ser um or Plasma [2345-7] 193 mg/dL N Blood chemistry[[id number]]? Glucose [Mass/volume] in Ser um or Plasma [2345-7] 218 mg/dL N Blood chemistry[[id number]]? Glucose [Mass/volume] in Ser um or Plasma [2345-7] 256 mg/dL N Blood chemistry[[id number]]? Glucose [Mass/volume] in Ser um or Plasma [2345-7] 359 mg/dL N Blood chemistry[[id number]]? Glucose [Mass/volume] in Ser um or Plasma [2345-7] 312 mg/dL N Blood chemistry[[id number]]? Glucose [Mass/volume] in Ser um or Plasma [2345-7] 294 mg/dL N Blood chemistry[[id number]]? Glucose [Mass/volume] in Ser um or Plasma [2345-7] 258 mg/dL N Blood chemistry[[id number]]? Glucose [Mass/volume] in Ser um or Plasma [2345-7] 246 mg/dL N Blood chemistry[[id number]]? Glucose [Mass/volume] in Ser um or Plasma [2345-7] 335 mg/dL N Blood chemistry[[id number]]? Glucose [Mass/volume] in Ser um or Plasma [2345-7] 227 mg/dL N Blood chemistry[[id number]]? Glucose [Mass/volume] in Ser um or Plasma [2345-7] 156 mg/dL N Blood chemistry[[id number]]? Glucose [Mass/volume] in Ser um or Plasma [2345-7] 364 mg/dL N Blood chemistry[[id number]]? Glucose [Mass/volume] in Ser um or Plasma [2345-7] 338 mg/dL N Blood chemistry[[id number]]? Glucose [Mass/volume] in Ser um or Plasma [2345-7] 250 mg/dL N Blood chemistry[[id number]]? Glucose [Mass/volume] in Ser um or Plasma [2345-7] 268 mg/dL N Blood chemistry[[id number]]? Glucose [Mass/volume] in Ser um or Plasma [2345-7] 208 mg/dL N Blood chemistry[[id number]]? Glucose [Mass/volume] in Ser um or Plasma [2345-7] 181 mg/dL N Blood chemistry[[id number]]? Glucose [Mass/volume] in Ser um or Plasma [2345-7] 292 mg/dL N Blood chemistry[[id number]]? Glucose [Mass/volume] in Ser um or Plasma [2345-7] 249 mg/dL N Blood chemistry[[id number]]? Glucose [Mass/volume] in Ser um or Plasma [2345-7] 374 mg/dL N Blood chemistry[[id number]]? Glucose [Mass/volume] in Ser um or Plasma [2345-7] 232 mg/dL N Allergies, adverse reactions, alerts No known allergies and adverse reactions Immunizations Vaccine Route Date Status Influenza Vaccine Unassigned Route of Administration 1 Completed Pneumococcal Vaccine Unassigned Route of Administratio n 07/30/2023 Completed Influenza Vaccine Unassigned Route of Administration 0 11/17/2024 Refused COVID-19 Vaccine Unassigned Route of Administration Refused Medications Medication Instructions Route Dosage Frequency Start Date Stop Date Indications Status Abrysvo (rsv vac, pref a and pref b(pf)) 120 mcg/0.5 mL recon soln (Abrysvo (rsv vac, pref a and pref b(pf))) 0.5ml, intramuscular , Once - One Time, Clinical indication: RSV vaccination intramuscu lar 1.0 06/21 Active Afluria Qd 2022-(3yr up)(PF) (flu vac [id number] 36mos up(pf)) 60 mcg (15 mcg x 4)/0.5 mL syringe (Afluria Qd 2022-(3yr up)(PF) (flu vac [id number] 36mos up(pf))) 0.5ml, intramuscular , Once - One Time, clinical indication: flu vaccination intramuscu lar 1.0 06/21 Active albuterol sulfate 90 mcg/actuation HFA aerosol inhaler (albuterol sulfate) 2 puffs, inhalation, Every 4 Hours - PRN, clinical indication: dyspnea inhalation 1.0 4.0 h 07/08 Active albuterol sulfate 0.63 mg/3 mL solution for nebulization (albuterol sulfate) 1 vial, inhalation, Three Times A Day, clinical indication: wheezing inhalation 1.0 8.0 h 06/21 Active amiodarone 200 mg tablet (amiodarone) 1 tab, oral, Twice A Day oral 1.0 12.0 h 06/21 Active amiodarone 200 mg tablet (amiodarone) 1 tab, oral, Once A Day oral 1.0 1.0 d 07/08 Active amoxicillin 500 mg capsule (amoxicillin) 1, oral, Three Times A Day oral 1.0 8.0 h 06/21 Active amoxicillin-pot clavulanate 875-125 mg tablet (amoxicillin-po t clavulanate) 1, oral, Twice A Day oral 1.0 12.0 h 06/21 Active Augmentin (amoxicillin-po t clavulanate) 500-125 mg tablet (Augmentin (amoxicillin-po t clavulanate)) 1, oral, Twice A Day oral 1.0 12.0 h 06/21 Active augmentin 875mg 875mg tablet (augmentin 875mg) 875mg, oral, Twice A Day, clinical indication: UTI oral 1.0 12.0 h 06/21 Other obstructive and reflux uropathy Active Bactoshield CHG (chlorhexidine gluconate) 4 % liquid (Bactoshield CHG (chlorhexidine gluconate)) as directed, topical, Every Shift, shower evening before surgery and morning of surgery, wash hair per usual, and use the chg from jaw down topical 1.0 8.0 h 06/21 Active buspirone 10 mg tablet (buspirone) 1, oral, As Needed, Given 1 tab BID PRN as needed for anxiety oral 1.0 1.0 d 06/21 Active cefdinir 300 mg capsule (cefdinir) 1, oral, Twice A Day oral 1.0 12.0 h 06/21 Active cefdinir 300 mg capsule (cefdinir) 1, oral, Twice A Day, Cefdinir 300 mg PO BID X 10 days for UTI oral 1.0 12.0 h 06/21 Active cefdinir 300 mg capsule (cefdinir) 1, oral, Twice A Day oral 1.0 12.0 h 06/21 Active cefepime 2 gram recon soln (cefepime) 2 gram, intravenous, Every 12 Hours intravenou s 1.0 12.0 h 06/21 Active Cipro (ciprofloxacin hcl) 500 mg tablet (Cipro (ciprofloxacin hcl)) 1, oral, Twice A Day oral 1.0 12.0 h 06/21 Active Colace (docusate sodium) 100 mg capsule (Colace (docusate sodium)) 1 cap, oral, Twice A Day, administer 1 cap BID oral 1.0 12.0 h 07/08 Active Diflucan (fluconazole) 100 mg tablet (Diflucan (fluconazole)) 1, oral, Once A Day oral 1.0 1.0 d 06/21 Active doxycycline monohydrate 100 mg tablet (doxycycline monohydrate) 1, oral, Twice A Day oral 1.0 12.0 h 06/21 Active Dulcolax (bisacodyl) (bisacodyl) 10 mg suppository (Dulcolax (bisacodyl) (bisacodyl)) 1 suppository, rectal, Once A Day - PRN, if no BM x 3 days rectal 1.0 1.0 d 07/08 Active ertapenem 1 gram recon soln (ertapenem) 1 gram, intravenous, Once A Day, clinical indication: esbl Urine intravenou s 1.0 1.0 d 06/21 Active ertapenem 1 gram recon soln (ertapenem) 1 gram, intravenous, Once A Day intravenou s 1.0 1.0 d 06/21 Active finasteride 5 mg tablet (finasteride) 1 tab, oral, Once A Day oral 1.0 1.0 d 05/26 Active fluconazole 150 mg tablet (fluconazole) 1 tab, oral, Once A Day, x 2 days oral 1.0 1.0 d 06/21 Active fluconazole 150 mg tablet (fluconazole) 1, oral, Once A Day oral 1.0 1.0 d 06/21 Active fluconazole 200 mg tablet (fluconazole) 1, oral, Once A Day oral 1.0 1.0 d 06/21 Active fluconazole 200 mg tablet (fluconazole) 2, oral, Once A Day oral 1.0 1.0 d 06/21 Active fluticasone propion-salmete rol 100-50 mcg/dose blister with device (fluticasone propion-salmete rol) 1 puff, inhalation, Twice A Day, rinse mouth after use inhalation 1.0 12.0 h 07/08 Active galantamine 4 mg tablet (galantamine) 1 tab, oral, Twice A Day oral 1.0 12.0 h 07/08 Active Gas Relief (simethicone) (simethicone) 80 mg tablet,chewable (Gas Relief (simethicone) (simethicone)) 1, oral, After Meals, Take one tablet after meals oral 1.0 07/08 Active Glutose-15 (dextrose) 40 % gel (Glutose-15 (dextrose)) 1, oral, Once - One Time oral 1.0 06/21 Active Heparin LockFlush(Porci ne)(PF) (heparin, porcine (pf)) 100 unit/mL syringe (Heparin LockFlush(Porci ne)(PF) (heparin, porcine (pf))) 5ml, intravenous, Every Shift, Flush johnathan-cath with Heparinized NS before and after each use intravenou s 1.0 8.0 h 06/21 Active insulin glargine-yfgn 100 unit/mL solution (insulin glargine-yfgn) 30 units, subcutaneous, Once A Day subcutaneo us 1.0 1.0 d 05/24 Active insulin glargine-yfgn 100 unit/mL solution (insulin glargine-yfgn) 33 units, subcutaneous, Once A Day subcutaneo us 1.0 1.0 d 07/08 Active Lasix (furosemide) 40 mg tablet (Lasix (furosemide)) 1, oral, Once A Day oral 1.0 1.0 d 06/21 Active Lasix (furosemide) 20 mg tablet (Lasix (furosemide)) 1 tab, oral, Once A Day, Take one tablet daily oral 1.0 1.0 d 07/08 Active levofloxacin 500 mg tablet (levofloxacin) 1, oral, Once A Day oral 1.0 1.0 d 06/21 Active linezolid 600 mg tablet (linezolid) 1, oral, Twice A Day oral 1.0 12.0 h 06/21 Active Macrobid (nitrofurantoin monohyd/m-cryst ) 100 mg capsule (Macrobid (nitrofurantoin monohyd/m-cryst )) 1, oral, Twice A Day oral 1.0 12.0 h 06/21 Active melatonin 1 mg tablet (melatonin) 1 tab, oral, At Bedtime - PRN, clinical indication: insomnia oral 1.0 06/21 Active melatonin 1 mg tablet (melatonin) 1 tab, oral, At Bedtime oral 1.0 07/08 Active menthol-zinc oxide 0.44-20.6 % ointment (menthol-zinc oxide) 1 application, topical, Twice A Day, to L buttocks topical 1.0 12.0 h 07/08 Active metoprolol tartrate 25 mg tablet (metoprolol tartrate) 1/2 tab, oral, Twice A Day oral 1.0 12.0 h 07/08 Active Miralax (polyethylene glycol 3350) 17 gram/dose powder (Miralax (polyethylene glycol 3350)) 17 gram, oral, Once A Day, hold if lose stools oral 1.0 1.0 d 06/21 Active mometasone 50 mcg/actuation spray,non-aeros ol (mometasone) 1 spray, nasal, Twice A Day, Each nostril nasal 1.0 12.0 h 07/08 Active Normal Saline Flush (sodium chloride 0.9 %) - syringe (Normal Saline Flush (sodium chloride 0.9 %)) 10 ml, injection, Every Shift - PRN, Flush johnathan-cath before and after use 1.0 8.0 h 06/21 Active Normal Saline Flush (sodium chloride 0.9 %) - syringe (Normal Saline Flush (sodium chloride 0.9 %)) 5ml, injection, Every Shift, Flush picc with 5ml NS before and after use(SASH) 1.0 8.0 h 06/14 Active Novolog FlexPen U-100 Insulin (insulin aspart u-100) 100 unit/mL (3 mL) insulin pen (Novolog FlexPen U-100 Insulin (insulin aspart u-100)) 24 units, subcutaneous, With Meals subcutaneo us 1.0 05/24 Active Novolog FlexPen U-100 Insulin (insulin aspart u-100) 100 unit/mL (3 mL) insulin pen (Novolog FlexPen U-100 Insulin (insulin aspart u-100)) 26 units, subcutaneous, With Meals subcutaneo us 1.0 06/14 Active Novolog FlexPen U-100 Insulin (insulin aspart u-100) 100 unit/mL (3 mL) insulin pen (Novolog FlexPen U-100 Insulin (insulin aspart u-100)) 26 units, subcutaneous, With Meals subcutaneo us 1.0 07/08 Active Novolog U-100 Insulin aspart (insulin aspart u-100) 100 unit/mL solution (Novolog U-100 Insulin aspart (insulin aspart u-100)) Per Sliding Scale, subcutaneous, Before Meals, If Blood Sugar is 141 to 180, give 0 Units.If Blood Sugar is 181 to 220, give 2 Units.If Blood Sugar is 221 to 260, give 4 Units.If Blood Sugar is 261 to 300, give 6 Units.If Blood Sugar is 301 to 350, give 8 Units.If Blood Sugar is 351 to 400, give 10 Units.If Blood Sugar is 401 to 450, give 12 Units.If Blood Sugar is greater than 450, give 14 Units.If Blood Sugar is greater than 500, call MD., if blood sugar is greater than 500 call for order to ship to ER if lower than 60 at any time lightheaded dizzy or diaphoretic or have chest palpitations eat hard candy or drink orange juice and recheck if not rising and call pcp for er order [facility] us 1.0 05/24 Active oxycodone 5 mg capsule (oxycodone) 1, oral, Twice A Day - PRN, Clinical indication: pain oral 1.0 12.0 h 07/08 Active pantoprazole 40 mg tablet,delayed release (DR/EC) (pantoprazole) 1 tab, oral, Twice A Day oral 1.0 12.0 h 07/08 Active potassium chloride 20 mEq tablet extended release (potassium chloride) 1, oral, Once A Day oral 1.0 1.0 d 06/21 Active potassium chloride 10 mEq tablet extended release (potassium chloride) 1 tab, oral, Once A Day oral 1.0 1.0 d 06/21 Active potassium CL ER 10 meq tablet, extended release (potassium CL ER) 10meq, oral, Once A Day, Potassium CL ER 10 meq take one by mouth daily oral 1.0 1.0 d 07/08 Acute systolic (congestive) heart failure Active Prevnar 20 (PF) (pneumoc 20-zenon conj-dip cr(pf)) 0.5 mL syringe (Prevnar 20 (PF) (pneumoc 20-zenon conj-dip cr(pf))) 0.5ml, intramuscular , Once - One Time, clinical indication: PNU vaccination intramuscu lar 1.0 06/21 Active Probiotic (lactobacillus acidophilus) 10 billion cell capsule (Probiotic (lactobacillus acidophilus)) 1, oral, Twice A Day oral 1.0 12.0 h 06/21 Active rosuvastatin 40 mg tablet (rosuvastatin) 1 tab, oral, At Bedtime oral 1.0 07/08 Active Silvadene (silver sulfadiazine) 1 % cream (Silvadene (silver sulfadiazine)) as directed, topical, Once A Day, rt buttock: Cleanse with ns ang gauze, apply Silvadene cream to open area and cover with bordered foam daily and prn topical 1.0 1.0 d 06/20 Active Silvadene (silver sulfadiazine) 1 % cream (Silvadene (silver sulfadiazine)) as directed, topical, Once A Day, rt buttock: Cleanse with ns and gauze, apply Silvadene cream to open area and cover with loose abd daily and prn topical 1.0 1.0 d 07/08 Active tamsulosin 0.4 mg capsule (tamsulosin) 1 capsule, oral, At Bedtime oral 1.0 05/26 Active Thera (multivitamin with folic acid) 400 mcg tablet (Thera (multivitamin with folic acid)) 1 tab, oral, Once A Day oral 1.0 1.0 d 07/08 Active Triad Wound Dressing (wound dressings) - paste (Triad Wound Dressing (wound dressings)) as directed, topical, Every Shift, Rt Buttock: Remove old triad with baby oil and gauze, cleanse with NS and gauze, apply triad and saji topical 1.0 8.0 h 06/03 Active Tubersol (tuberculin ppd) 5 tub. unit /0.1 mL solution (Tubersol (tuberculin ppd)) 0.1ml, intradermal, Once - One Time, Administer the morning after admission intraderma l 1.0 06/21 Active Tubersol (tuberculin ppd) 5 tub. unit /0.1 mL solution (Tubersol (tuberculin ppd)) 0.1ml, intradermal, Once - One Time, Administer on the day shift intraderma l 1.0 06/21 Active Tylenol (acetaminophen) 325 mg tablet (Tylenol (acetaminophen) ) 2 tabs/650mg, oral, Every 6 Hours - PRN, as needed for PRN pain/increase d tempMay give rectally if necessary oral 1.0 6.0 h 07/08 Active Xarelto (rivaroxaban) 20 mg tablet (Xarelto (rivaroxaban)) 1, oral, Once An Evening oral 1.0 06/09 Active Xarelto (rivaroxaban) 20 mg tablet (Xarelto (rivaroxaban)) 1, oral, Once An Evening oral 1.0 07/08 Active Xtampza ER (oxycodone myristate) 9 mg cap,sprinkl,ER1 2hr(DONT CRUSH) (Xtampza ER (oxycodone myristate)) 1, oral, Twice A Day oral 1.0 12.0 h 07/08 Active albuterol sulfate 90 mcg/actuation HFA aerosol inhaler (albuterol sulfate) 2 puff, inhalation, Every 4 Hours - PRN, for shortness of breath or wheezing inhalation 1.0 4.0 h 2024 Active atorvastatin 80 mg tablet (atorvastatin) 1 tab, oral, Once A Day oral 1.0 1.0 d 2024 Active cholecalciferol (vitamin D3) 25 mcg (1,000 unit) tablet (cholecalcifero l (vitamin D3)) 1 tab, oral, Once A Day oral 1.0 1.0 d 2024 Active cyanocobalamin (vitamin B-12) 1,000 mcg tablet (cyanocobalamin (vitamin B-12)) 1 tab, oral, Once A Day oral 1.0 1.0 d 2024 Active Daily-Marylou (with folic acid) (multivitamin with folic acid) 400 mcg tablet (Daily-Marylou (with folic acid) (multivitamin with folic acid)) 1 tab, oral, Once A Day oral 1.0 1.0 d 2024 Active dextromethorpha n-guaifenesin 10-100 mg/5 mL liquid (dextromethorph an-guaifenesin) 5-10 mL, oral, Every 6 Hours - PRN, for congestion oral 1.0 6.0 h 2024 Active digoxin 125 mcg (0.125 mg) tablet (digoxin) 1 tab, oral, Once A Day oral 1.0 1.0 d 2024 Active donepezil 5 mg tablet (donepezil) 1 tab, oral, Once A Day oral 1.0 1.0 d 2024 Active Dulcolax (bisacodyl) (bisacodyl) 10 mg suppository (Dulcolax (bisacodyl) (bisacodyl)) 1 suppository, rectal, Once A Day - PRN, Give rectally if can't take p/o, if no results from MOM rectal 1.0 1.0 d 2024 Active finasteride 5 mg tablet (finasteride) 1 tab, oral, Once A Day oral 1.0 1.0 d 2024 Active fluticasone propion-salmete rol 100-50 mcg/dose blister with device (fluticasone propion-salmete rol) 1 inhalation, inhalation, Twice A Day, rinse mouth with water and spit after use inhalation 1.0 12.0 h 2024 Active fluticasone propionate 50 mcg/actuation spray,suspensio n (fluticasone propionate) 1 spray, nasal, Once A Day, in each nostril nasal 1.0 1.0 d 2024 Active furosemide 20 mg tablet (furosemide) 1 tab, oral, Twice A Day - PRN, for edema oral 1.0 12.0 h 11/21 Active hydrocodone-delphine taminophen 7.5-325 mg tablet (hydrocodone-ac etaminophen) 1 tab, oral, Every 4 Hours - PRN, for pain Exempt R52 oral 1.0 4.0 h 2024 Active insulin glargine-yfgn 100 unit/mL (3 mL) insulin pen (insulin glargine-yfgn) 12 units, subcutaneous, Once A Day subcutaneo us 1.0 1.0 d 11/21 Active insulin lispro 100 unit/mL insulin pen (insulin lispro) Per Sliding Scale, subcutaneous, Before Meals and At Bedtime, If Blood Sugar is less than 60, call MD.If Blood Sugar is 201 to 250, give 2 Units.If Blood Sugar is 251 to 300, give 4 Units.If Blood Sugar is 301 to 350, give 6 Units.If Blood Sugar is 351 to 400, give 0 Units.If Blood Sugar is greater than 400, call MD. subcutaneo us 1.0 11/18 Active melatonin 1 mg tablet (melatonin) 1 tab, oral, At Bedtime oral 1.0 2024 Active metformin 500 mg tablet (metformin) 1 tab, oral, Once A Day oral 1.0 1.0 d 2024 Active metoprolol tartrate 25 mg tablet (metoprolol tartrate) 1 tab, oral, Twice A Day oral 1.0 12.0 h 2024 Active omeprazole 20 mg capsule,delayed release(DR/EC) (omeprazole) 1 cap, oral, Once A Day oral 1.0 1.0 d 2024 Active tamsulosin 0.4 mg capsule (tamsulosin) 1 cap, oral, At Bedtime oral 1.0 2024 Active Tylenol (acetaminophen) 325 mg tablet (Tylenol (acetaminophen) ) 2 tabs/650mg, oral, Every 6 Hours - PRN, as needed for PRN pain/increase d tempMay give rectally if necessary oral 1.0 6.0 h 2024 Active ferrous sulfate 325 mg (65 mg iron) tablet (ferrous sulfate) 1 tab, oral, Once A Day Every Other Day oral 1.0 1.0 d 2024 Active silver sulfadiazine 1 % cream (silver sulfadiazine) as directed, topical, Every Shift, Right buttock: Apply to right buttock open area q shift and saji topical 1.0 8.0 h 2024 Active furosemide 20 mg tablet (furosemide) 1 tab, oral, Once A Day, for edema oral 1.0 1.0 d 2024 Active insulin glargine-yfgn 100 unit/mL (3 mL) insulin pen (insulin glargine-yfgn) 15 units, subcutaneous, Once A Day subcutaneo us 1.0 1.0 d 2024 Active ondansetron 4 mg tablet,disinteg rating (ondansetron) 1 tab, oral, Before Meals, 1 tab before meals to prevent nausea oral 1.0 2024 Active Vital Signs Date Vital Result Comment 06/21/2024 07:40 AM Temperature 97.6 [degF] Oxygen Saturation 99 % Respiratory Rate 18 /min Heart Rate 105 /min Blood Pressure Systolic 107 mm[Hg] Blood Pressure Diastolic 69 mm[Hg] 06/20/2024 07:31 PM Temperature 98.2 [degF] Oxygen Saturation 95 % Respiratory Rate 20 /min Heart Rate 105 /min Blood Pressure Systolic 104 mm[Hg] Blood Pressure Diastolic 69 mm[Hg] 06/20/2024 07:54 AM Temperature 97.4 [degF] Oxygen Saturation 97 % Respiratory Rate 16 /min Heart Rate 86 /min Blood Pressure Systolic 120 mm[Hg] Blood Pressure Diastolic 74 mm[Hg] 06/19/2024 10:46 PM Temperature 97 [degF] Oxygen Saturation 95 % Respiratory Rate 16 /min Heart Rate 70 /min Blood Pressure Systolic 112 mm[Hg] Blood Pressure Diastolic 78 mm[Hg] 06/19/2024 07:18 AM Temperature 97.3 [degF] Oxygen Saturation 94 % Respiratory Rate 19 /min Heart Rate 68 /min Blood Pressure Systolic 109 mm[Hg] Blood Pressure Diastolic 63 mm[Hg] 06/18/2024 11:55 PM Temperature 98 [degF] Oxygen Saturation 95 % Respiratory Rate 18 /min Heart Rate 70 /min Blood Pressure Systolic 130 mm[Hg] Blood Pressure Diastolic 78 mm[Hg] 06/18/2024 07:37 AM Temperature 98 [degF] Oxygen Saturation 100 % Respiratory Rate 18 /min Heart Rate 97 /min Blood Pressure Systolic 102 mm[Hg] Blood Pressure Diastolic 61 mm[Hg] 06/17/2024 10:05 PM Temperature 98 [degF] Oxygen Saturation 96 % Respiratory Rate 16 /min Heart Rate 76 /min Blood Pressure Systolic 132 mm[Hg] Blood Pressure Diastolic 88 mm[Hg] 06/17/2024 06:57 AM Temperature 97.4 [degF] Oxygen Saturation 93 % Respiratory Rate 16 /min Heart Rate 82 /min Blood Pressure Systolic 108 mm[Hg] Blood Pressure Diastolic 71 mm[Hg] 06/16/2024 08:22 PM Temperature 98.4 [degF] Oxygen Saturation 94 % Respiratory Rate 20 /min Heart Rate 92 /min Blood Pressure Systolic 110 mm[Hg] Blood Pressure Diastolic 79 mm[Hg] 06/14/2024 11:04 PM Body Height 68 [in_us] Body Weight 202 [lb_av] Body Mass Index 30.71 kg/m2 05/25/2024 10:58 AM Body Weight 202.4 [lb_av] Body Mass Index 30.77 kg/m2 04/20/2024 11:06 AM Body Weight 201 [lb_av] Body Mass Index 30.56 kg/m2 04/13/2024 09:23 AM Body Weight 210.4 [lb_av] Body Mass Index 31.99 kg/m2 05/04/2024 10:54 AM Body Weight 204 [lb_av] Body Mass Index 31.01 kg/m2 06/16/2024 06:33 AM Body Weight 198 [lb_av] Body Mass Index 30.1 kg/m2 05/05/2024 10:28 AM Body Weight 204 [lb_av] Body Mass Index 31.01 kg/m2 04/04/2024 02:53 PM Body Weight 215 [lb_av] Body Mass Index 32.69 kg/m2 05/18/2024 07:21 AM Body Weight 202.8 [lb_av] Body Mass Index 30.83 kg/m2 04/12/2024 12:14 PM Body Weight 210 [lb_av] Body Mass Index 31.93 kg/m2 06/05/2024 12:53 PM Body Weight 202.2 [lb_av] Body Mass Index 30.74 kg/m2 06/15/2024 10:07 AM Body Weight 198.2 [lb_av] Body Mass Index 30.13 kg/m2 05/08/2024 02:35 PM Body Weight 208.2 [lb_av] Body Mass Index 31.65 kg/m2 06/17/2024 11:18 AM Body Weight 198 [lb_av] Body Mass Index 30.1 kg/m2 05/10/2024 09:17 AM Body Weight 204.6 [lb_av] Body Mass Index 31.11 kg/m2 05/07/2024 09:36 AM Body Weight 203.2 [lb_av] Body Mass Index 30.89 kg/m2 04/27/2024 10:11 AM Body Weight 204.4 [lb_av] Body Mass Index 31.08 kg/m2 04/08/2024 08:13 PM Body Weight 216 [lb_av] Body Mass Index 32.84 kg/m2 04/01/2024 11:23 AM Body Weight 216 [lb_av] Body Mass Index 32.84 kg/m2 03/30/2024 10:08 AM Body Weight 218.4 [lb_av] Body Mass Index 33.2 kg/m2 04/02/2024 04:15 PM Body Weight 216 [lb_av] Body Mass Index 32.84 kg/m2 11/18/2024 03:03 PM Temperature 97.7 [degF] Oxygen Saturation 99 % Respiratory Rate 20 /min Heart Rate 91 /min Blood Pressure Systolic 159 mm[Hg] Blood Pressure Diastolic 97 mm[Hg] Body Weight 186.4 [lb_av] Body Mass Index 28.34 kg/m2 11/19/2024 04:19 AM Temperature 98 [degF] Oxygen Saturation 95 % Respiratory Rate 16 /min Heart Rate 70 /min Blood Pressure Systolic 112 mm[Hg] Blood Pressure Diastolic 80 mm[Hg] 11/19/2024 09:48 PM Temperature 98 [degF] Oxygen Saturation 95 % Respiratory Rate 16 /min Heart Rate 70 /min Blood Pressure Systolic 136 mm[Hg] Blood Pressure Diastolic 78 mm[Hg] 11/19/2024 03:05 PM Body Weight 185.8 [lb_av] Body Mass Index 28.25 kg/m2 11/19/2024 10:46 AM Temperature 98 [degF] Oxygen Saturation 98 % Respiratory Rate 18 /min Heart Rate 79 /min Blood Pressure Systolic 104 mm[Hg] Blood Pressure Diastolic 46 mm[Hg] 11/20/2024 01:08 PM Body Weight 184.2 [lb_av] Body Mass Index 28 kg/m2 11/20/2024 07:57 AM Temperature 97.3 [degF] Oxygen Saturation 97 % Respiratory Rate 18 /min Heart Rate 96 /min Blood Pressure Systolic 106 mm[Hg] Blood Pressure Diastolic 73 mm[Hg] 11/21/2024 02:24 AM Temperature 97 [degF] Oxygen Saturation 96 % Respiratory Rate 16 /min Heart Rate 80 /min Blood Pressure Systolic 120 mm[Hg] Blood Pressure Diastolic 88 mm[Hg] 11/21/2024 09:25 PM Temperature 97.7 [degF] Oxygen Saturation 93 % Respiratory Rate 20 /min Heart Rate 79 /min Blood Pressure Systolic 104 mm[Hg] Blood Pressure Diastolic 66 mm[Hg] 11/21/2024 05:39 PM Temperature 98.2 [degF] Oxygen Saturation 93 % Respiratory Rate 20 /min Heart Rate 72 /min Blood Pressure Systolic 140 mm[Hg] Blood Pressure Diastolic 68 mm[Hg] 11/22/2024 09:55 AM Temperature 98.1 [degF] Oxygen Saturation 96 % Respiratory Rate 18 /min Heart Rate 67 /min Blood Pressure Systolic 98 mm[Hg] Blood Pressure Diastolic 62 mm[Hg] 11/23/2024 05:54 AM Temperature 96.9 [degF] Oxygen Saturation 96 % Respiratory Rate 18 /min Heart Rate 94 /min Blood Pressure Systolic 120 mm[Hg] Blood Pressure Diastolic 71 mm[Hg] 11/22/2024 06:42 PM Temperature 97.1 [degF] Oxygen Saturation 97 % Respiratory Rate 22 /min Heart Rate 95 /min Blood Pressure Systolic 100 mm[Hg] Blood Pressure Diastolic 52 mm[Hg] 11/24/2024 07:06 AM Temperature 98 [degF] Oxygen Saturation 98 % Respiratory Rate 20 /min Heart Rate 62 /min Blood Pressure Systolic 145 mm[Hg] Blood Pressure Diastolic 65 mm[Hg] 11/23/2024 07:50 PM Temperature 97.1 [degF] Oxygen Saturation 99 % Respiratory Rate 19 /min Heart Rate 60 /min Blood Pressure Systolic 160 mm[Hg] Blood Pressure Diastolic 58 mm[Hg] 11/25/2024 07:04 AM Temperature 97.6 [degF] Oxygen Saturation 96 % Respiratory Rate 18 /min Heart Rate 72 /min Blood Pressure Systolic 142 mm[Hg] Blood Pressure Diastolic 76 mm[Hg] 11/24/2024 08:50 PM Temperature 97 [degF] Oxygen Saturation 95 % Respiratory Rate 16 /min Heart Rate 80 /min Blood Pressure Systolic 130 mm[Hg] Blood Pressure Diastolic 80 mm[Hg] 11/25/2024 10:07 PM Temperature 99.9 [degF] Oxygen Saturation 98 % Respiratory Rate 18 /min Heart Rate 88 /min Blood Pressure Systolic 96 mm[Hg] Blood Pressure Diastolic 70 mm[Hg] Social History No smoking Hx information available Encounters Type CPT Code Date Location Provider Indication s encounter report 11/03/2024 05:4 4 PM - 11/03/2024 05:47 PM Vinnie Garcia DO 03 encounter report 05/27/2023 10:5 3 PM - 06/21/2024 07:38 PM Vinnie Garcia DO 02 encounter report 11/18/2024 01:0 3 PM - 11/25/2024 10:08 PM Vinnie Garcia DO 03 Advance Directives Directive Description Verification Date Supporting Document(s) Other Directive
--- OUTSIDE RECORDS SUMMARY | 2024-11-26 18:46 | XMS_ITS | Encounter Summary ---
Author Organization [facility] [employer] Address 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
--- OUTSIDE RECORDS SUMMARY | 2024-11-26 18:46 | XMS_ITS | Encounter Summary ---
Author Organization [facility] Address [address] [place] [address] Care Team Providers Care Painter And Grader Cork Name Role Phone Unavailable Primary Care Provider Unavailabl e Encounter Details Date Type Department Care Team (Latest Contact Info) Description 12/10/2017 Ancillary Orders [facility] Centralized Scheduling [address] [place] [address] Jose Luis Chavez MD [address] [place] [id number] Radiculopathy, lumbar region Social History Tobacco Use Types Packs/Day Years Used Date Smoking Tobacco: Never Assessed Sex and Gender Information Value Date Recorded Sex Assigned at Not on file 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
--- OUTSIDE RECORDS SUMMARY | 2024-11-26 18:46 | XMS_ITS | Encounter Summary ---
Author Organization [employer] Address 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
--- OUTSIDE RECORDS SUMMARY | 2024-11-26 18:47 | XMS_ITS | Patient Health Record ---
Author Organization [employer] [facility] Address [address] [place] [address] Care Team Providers Care Food Preservation Scientist Name Role Phone Trisha Maxwell MD Primary Care Provider Unavaila ble Reason For Referral No Information Plan Of Treatment No Information
--- OUTSIDE RECORDS SUMMARY | 2024-11-26 18:48 | XMS_ITS | Data Portability ---
Author Organization [facility] Fang [place] [facility] Kayla Marr [facility] Address [address] [place] [phone] Assessment No assessment recorded. Plan of Treatment Reminders Order Date Submit Date Provider Last Modified By Organization Details Last Modified Time Details Appointments None record ed. Lab None record ed. Referral None record ed. Procedures None record ed. Surgeries None record ed. Imaging None record ed. Medication Orders None record ed. Patient TargetsNo targets recorded. Patient Instructions Encounter Date Encounter Id Patient Instructions Last Modified By Organization Details Last Modified Time 05/31/2024 [id number] decreased urinar y output and blood in nephrostomy tubes. will encourage hydration and monitor staff to discuss with daughter [email or web address] Not available 06/01/2024 08:50:35 06/07/2024 [id number] Difficulty sleeping, will start melatonin 1mg at hs. Talking with daughter about possibly moving to [place]. [email or web address] Not available 06/07/2024 13:37:04 06/16/2024 [id number] Pain improved on xtampza, discussed buspar, agreed not to re-start. Blood pressure on the lower side, staff to monitor. 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 d/c prn lasix. schedule lasix 20mg daily. schedule cbc,bmp,a1c q 3 monhts. [email or web address] Not available 11/22/2024 14:18:52 Reason for Referral None Reported. Problems Name Problem SNOMED Code Status Onset Date Resolution Date Notes Provider Name and Address Organization Details Recorded Time Hospital inpatient stay within past 30 days 5701932872037 Active 2022 EVENS TODD [place], [facility] 3 12:23:24 Spinal stenosis of lumbar region 97249433 Active 2022 EVENS TODD [place], [facility] 3 12:23:25 Atrial fibrillati on 34262052 Active 2022 EVENS TODD [place], [facility] 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 3 12:23:27 Neurogenic urinary bladder 040069855 Active 2022 EVENS TODD [place], [facility] 3 12:23:29 Essential hypertensi on 44369866 Active 2022 EVENS TODD [place], [facility] 3 12:23:30 Difficulty sleeping 413425424 Active 2022 EVENS TODD [place], [facility] 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 3 12:10:22 Uncontroll ed type 2 diabetes mellitus 832267350 Active 2022 EVENS TODD [place], [facility] 3 12:10:23 Acute urinary tract infection 608137167 Active 2022 EVENS TODD [facility] 3 12:10:26 Sepsis 08344835 Active 2022 EVENS TODD [place], [facility] 3 15:15:01 Metabolic encephalop athy 80955754 Active 2022 EVENS TODD [place], [facility] 3 15:15:02 Pneumonia 032720287 Active 2022 EVENS TODD [facility] 3 15:15:02 Acute pyelonephr itis 44650636 Active 2022 EVENS TODD [place], [facility] 3 15:15:04 Anemia due to blood loss 232847993 Active 2022 EVENS TODD [place], [facility] 3 15:15:06 Need for personal care assistance 5607553191171 9106 Active 2023 EVENS TODD [facility] 4 13:09:05 Chronic pain 04035800 Active 2023 EVENS TODD [facility] 4 15:47:08 Osteomyeli tis 43770402 Active 2023 EVENS TODD [facility] 4 12:18:14 Lumbar discitis 661735891 Active 2023 EVENS TODD [facility] 4 12:18:29 Problem Notes None recorded. Medical Equipment None Reported. Medications Name Sig Start Date Stop Date Status Note LastModified by Organization Details LastModified Time losartan 50 mg tablet active Not Available Not Available Not Available amoxicill in 500 mg capsule active Not Available Not Available Not Available furosemid e 40 mg tablet active Not Available Not Available Not Available fluconazo le 100 mg tablet TAKE 1 TABLET BY MOUTH ONCE DAILY FOR 21 DAYS active Not Available Not Available No t Available silver sulfadiaz ine 1 % topical cream active Not Available Not Available Not Available metformin 500 mg tablet active Not Available Not Available Not Available albuterol sulfate 0.63 mg/3 mL solution for nebulizat ion active Not Available Not Available Not Available cefepime 1 gram solution for injection active Not Available Not Available No t Available Normal Saline Flush 0.9 % injection syringe active Not Available Not Available Not Available cetirizin e 10 mg tablet active Not Available Not Available Not Available metoprolo l tartrate 100 mg tablet active Not Available Not Available Not Available fluconazo le 150 mg tablet TAKE 1 TABLET BY MOUTH ONCE DAILY FOR 14 DAYS active Not Available Not Available No t Available amiodaron e 200 mg tablet active Not Available Not Available Not Available benzonata te 200 mg capsule active Not Available Not Available Not Available sulfameth oxazole 400 mg-trimet hoprim 80 mg tablet active Not Available Not Available No t Available hydrocodo ne 5 mg-acetam inophen 325 mg tablet every four hours, as needed active Not Available Not Available No t Available fluconazo le 200 mg tablet active Not Available Not Available Not Available dextromet horphan-g uaifenesi n 10 mg-100 mg/5 mL oral liquid active Not Available Not Available Not Available cefepime 2 gram solution for injection active Not Available Not Available No t Available polyvinyl alcohol 1.4 % eye drops active Not Available Not Available Not Available gabapenti n 400 mg capsule active Not Available Not Available Not Available galantami ne 4 mg tablet active Not Available Not Available Not Available Lantus U-100 Insulin 100 unit/mL subcutane ous solution at bedtime 2021 active recorded , not sent to pharmacy . *dose increase *; 98418; Recorded 01/22/20 12:43PM by Catalino Todd RN (Authori zed through Vinnie Garcia DO), Office Visit; Refill Quantity : 0; Not Available Not Available Not Available cyanocoba neema (vit B-12) 1,000 mcg tablet active Not Available Not Available Not Available potassium chloride ER 10 mEq tablet,ex tended release active Not Available Not Available Not Available levofloxa neel 250 mg tablet active Not Available Not Available No t Available digoxin 250 mcg (0.25 mg) tablet active Not Available Not Available Not Available ciproflox acin 500 mg tablet TAKE 1 TABLET BY MOUTH TWICE DAILY FOR UTI active Not Available Not Available No t Available sulfameth oxazole 800 mg-trimet hoprim 160 mg tablet TAKE 1 TABLET BY MOUTH TWICE DAILY FOR 7 DAYS active Not Available Not Available No t Available aspirin 81 mg tablet,de layed release daily active 0; Recorded 01/22/20 22 8:07AM by Catalino Todd, SHELLY, Office Visit; Not Available Not Available Not Available tramadol 50 mg tablet Take 1 tablet every 6 hours by oral route as needed for 30 days. active Not Available Not Available No t Available acetamino phen 500 mg tablet active Not Available Not Available No t Available potassium chloride ER 20 mEq tablet,ex tended release(p art/cryst ) active Not Available Not Available Not Available methocarb rehan 750 mg tablet active Not Available Not Available No t Available Co Q-10 30 mg capsule active Not Available Not Available Not Available Triad Wound Dressing paste active Not Available Not Available Not Available tamsulosi n 0.4 mg capsule active Not Available Not Available Not Available gabapenti n 800 mg tablet active Not Available Not Available Not Available linezolid 600 mg tablet active Not Available Not Available Not Available Humalog U-100 Insulin 100 unit/mL subcutane ous solution active Not Available Not Available Not Available amlodipin e 10 mg tablet active Not Available Not Available Not Available doxycycli ne monohydra te 100 mg capsule active Not Available Not Available Not Available insulin aspart U-100 100 unit/mL subcutane ous solution active Not Available Not Available Not Available hydrocodo ne 7.5 mg-acetam inophen 325 mg tablet active Not Available Not Available Not Available bisacodyl 10 mg rectal supposito ry active Not Available Not Available Not Available cephalexi n 500 mg capsule TAKE 1 CAPSULE BY MOUTH EVERY 6 HOURS active Not Available Not Available No t Available pantopraz ole 40 mg tablet,de layed release active Not Available Not Available Not Available cyanocoba neema (vit B-12) 1,000 mcg/mL injection solution active Not Available Not Available Not Available fluconazo le 50 mg tablet active Not Available Not Available Not Available buspirone 10 mg tablet active Not Available Not Available Not Available metoprolo l tartrate 50 mg tablet active Not Available Not Available Not Available docusate sodium 100 mg capsule active Not Available Not Available Not Available mometason e 50 mcg/actua tion nasal spray active Not Available Not Available Not Available amoxicill in 250 mg capsule active Not Available Not Available Not Available furosemid e 20 mg tablet active Not Available Not Available Not Available sodium chloride 0.9 % intraveno us solution active Not Available Not Available Not Available fluticaso ne 100 mcg-salme terol 50 mcg/dose blistr powdr for inhalatio n active Not Available Not Available Not Available cefuroxim e axetil 500 mg tablet TAKE 1 TABLET BY MOUTH TWICE DAILY active Not Available Not Available No t Available levofloxa neel 500 mg tablet TAKE 1 TABLET BY MOUTH ONCE DAILY FOR 10 DAYS active Not Available Not Available No t Available levofloxa neel 750 mg tablet TAKE 1 TABLET BY MOUTH ONCE DAILY FOR 12 DAYS active Not Available Not Available No t Available albuterol sulfate HFA 90 mcg/actua tion aerosol inhaler active Not Available Not Available Not Available lisinopri l 40 mg tablet active Not Available Not Available Not Available cefdinir 300 mg capsule active Not Available Not Available Not Available losartan 100 mg tablet active Not Available Not Available Not Available diltiazem 60 mg tablet active Not Available Not Available Not Available fluticaso ne propionat e 50 mcg/actua tion nasal spray,sanchez pension active Not Available Not Available Not Available metformin ER 500 mg tablet,ex tended release 24 hr active Not Available Not Available Not Available chlorhexi dine gluconate 4 % topical liquid active Not Available Not Available Not Available finasteri de 5 mg tablet active Not Available Not Available Not Available galantami ne 8 mg tablet active Not Available Not Available Not Available amoxicill in 875 mg-potass ium clavulana te 125 mg tablet active Not Available Not Available Not Available amoxicill in 500 mg-potass ium clavulana te 125 mg tablet 03/23 completed Not Available Not Available Not Available simethico ne 80 mg chewable tablet active Not Available Not Available Not Available oxycodone 5 mg tablet Take 1 tablet twice a day by oral route as needed for 30 days. active Not Available Not Available No t Available ertapenem 1 gram solution for injection active Not Available Not Available No t Available insulin lispro (U-100) 100 unit/mL subcutane ous pen active Not Available Not Available Not Available Novolog FlexPen U-100 Insulin aspart 100 unit/mL (3 mL) subcutane ous active Not Available Not Available Not Available rosuvasta tin 40 mg tablet active Not Available Not Available Not Available melatonin 1 mg tablet active Not Available Not Available Not Available metoprolo l tartrate 25 mg tablet active Not Available Not Available Not Available nitrofura ntoin monohydra te/macroc rystals 100 mg capsule active Not Available Not Available Not Available carvedilo l two times daily active 0; Recorded 01/22/20 22 8:07AM by Catalino Todd RN, Office Visit; Not Available Not Available Not Available lisinopri l daily active 0; Recorded 01/22/20 22 8:07AM by Catalino Todd RN, Office Visit; Not Available Not Available Not Available metformin two times daily active 0; Recorded 01/22/20 22 8:07AM by Catalino Todd RN, Office Visit; Not Available Not Available Not Available Novolog FlexPen U-100 Insulin active 0; Recorded 01/22/20 22 8:07AM by Catalino Todd RN, Office Visit; Not Available Not Available Not Available heparin, porcine (PF) 100 unit/mL intraveno us syringe active Not Available Not Available Not Available cholecalc iferol (vitamin D3) 25 mcg (1,000 unit) tablet active Not Available Not Available Not Available Lantus Solostar U-100 Insulin 100 unit/mL (3 mL) subcutane ous pen active Not Available Not Available Not Available Coricidin HBP Chest Congestio n-Cough 10 mg-200 mg capsule active Not Available Not Available Not Available Culturell e Digestive Health 10 billion cell-200 mg sprinkle capsule active Not Available Not Available Not Available Calmosept ine 0.44 %-20.6 % topical ointment active Not Available Not Available Not Available Xarelto 15 mg tablet active Not Available Not Available Not Available Xarelto 20 mg tablet active Not Available Not Available Not Available Xtampza ER 9 mg capsule sprinkle Take 1 capsule every 12 hours by oral route for 30 days. active Not Available Not Available No t Available ferrous sulfate 220 mg (44 mg iron)/5 mL oral elixir active Not Available Not Available Not Available Daily-Vit e (with folic acid) 400 mcg tablet active Not Available Not Available Not Available insulin glargine- yfgn (U-100) 100 unit/mL (3 mL) subcutane ous pen active Not Available Not Available Not Available insulin glargine- yfgn (U-100) 100 unit/mL subcutane ous solution active Not Available Not Available Not Available Paxlovid 300 mg (150 mg x 2)-100 mg tablets in a dose pack active Not Available Not Available Not Available metronida zole, micronize d (bulk) 100 % powder active Not Available Not Available Not Available Thera-M 19 mg iron-400 mcg tablet active Not Available Not Available Not Available Vitals Date Recorded Body height Body mass index (BMI) Body weight Heart rate Respiratory rate Body temperature Oxygen saturation Oxygen saturation in Arterial blood by Pulse oximetry Systolic blood pressure Diastolic blood pressure Provider Name and Address Organization Details Last Updated DateTime 4 172.72 cm 30.7 kg/m2 19586.6 6 g 77 /min 21 /min 97.8 [degF] 98 % 98 % 112 mm[Hg] 72 mm[Hg] [facility] 4 15:15:38 Date Recorded Body height Body mass index (BMI) Body weight Heart rate Respiratory rate Body temperature Oxygen saturation Oxygen saturation in Arterial blood by Pulse oximetry Systolic blood pressure Diastolic blood pressure Provider Name and Address Organization Details Last Updated DateTime 4 172.72 cm 30.7 kg/m2 40369.6 6 g 78 /min 18 /min 98.1 [degF] 95 % 95 % 110 mm[Hg] 62 mm[Hg] [facility] 4 13:35:29 Date Recorded Body height Body mass index (BMI) Body weight Heart rate Respiratory rate Body temperature Oxygen saturation Oxygen saturation in Arterial blood by Pulse oximetry Systolic blood pressure Diastolic blood pressure Provider Name and Address Organization Details Last Updated DateTime 4 172.72 cm 30.1 kg/m2 02562.2 9 g 89 /min 19 /min 97.6 [degF] 94 % 94 % 102 mm[Hg] 59 mm[Hg] [facility] 4 14:24:47 Date Recorded Body height Body mass index (BMI) Body weight Heart rate Respiratory rate Body temperature Oxygen saturation Oxygen saturation in Arterial blood by Pulse oximetry Systolic blood pressure Diastolic blood pressure Provider Name and Address Organization Details Last Updated DateTime 5 172.72 cm 28 kg/m2 26573 g 67 /min 18 /min 98.1 [degF] 96 % 96 % 98 mm[Hg] 62 mm[Hg] CATALINO TODD [facility] 5 13:50:44 Social History None recorded. Functional Status None recorded. Mental Status None recorded. Family History Nothing Reported. Medical History No medical history recorded. Immunizations Vaccine Type Date Status Note Provider Nam e and Address Organization Details Recorded Time Influenza, split virus, trivalent, preservative 0 completed Not Available [facility] 05/02/2023 02:33:15 Past Encounters Encounter ID Performer Location Encounter Start Date Encounter Closed Date Diagnosis/Indication Diagnosis SNOMED-CT Code Diagnosis ICD10 Code Diagnosis Note [id number] Vinnie Garcia DO [facility]) [address] [place] [id number] 05/28/2023 12:14:45 05/28/2023 12:32:08 Hospital inpatient stay within past 30 days [id number] 106 Z76.89 Spinal marga nosis of lumbar region 84311425 M48.062 Atrial fibrillation 4943 6004 I48.91 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 5495470001 67798 E11.65 Neurogenic urinary bladder 183120713 N31.9 Essential hypertension 60785007 I10 [id number] Vinnie Garcia DO [facility]) [address] [place] [id number] 5 06/04/2023 09:49:04 06/14/2023 17:41:25 Difficulty sleeping 861463967 Z72.883 [id number] Vinnie Garcia DO [facility] ([facility]) [address] [place] [id number] 5 06/23/2023 08:28:47 06/25/2023 15:01:57 Spinal stenosis of lumbar region 11839195 M48.062 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 0872200725 71141 E11.65 Atrial fibrillation 4943 6004 I48.91 Neurogenic urinary bladder 464155584 N31.9 [id number] Vinnie Garcia DO [facility] ([facility]) [address] [place] [phone] 5 07/21/2023 09:10:19 08/02/2023 19:30:15 Hospital inpatient stay within past 30 days 1726835826 106 Z76.89 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 8393351 I11.0 Uncontroll ed type 2 diabetes mellitus 897406654 E11.65 Atrial fibrillation 4943 6004 I48.91 Acute urin viola tract infection 436529853 N39.0 [id number] Vinnie Garcia DO [facility] ([facility]) [address] [place] [id number] 08/04/2023 13:51:30 08/05/2023 08:38:35 Spinal stenosis of lumbar region 42857613 M48.062 Difficulty sleeping 3013 98911 Z72.322 [id number] Vinnie Garcia DO [facility] ([facility]) [address] [place] [id number] 5 08/11/2023 08:12:12 08/17/2023 15:36:55 Hospital inpatient stay within past 30 days [id number] 106 Z76.89 Sepsis 09669166 A41.9 Metabolic encephalopathy 60529130 G93.41 Pneumonia 020540632 J18. 9 Acute pyelonephritis 366 29994 N10 Anemia due to blood loss 408647693 D50.0 [id number] Vinnie Garcia DO [facility] ([facility]) [address] [place] [id number] 5 08/13/2023 08:23:16 08/23/2023 20:29:11 Spinal stenosis of lumbar region 08832754 M48.062 Difficulty sleeping 3013 51432 Z72.820 Acute pyelonephritis 366 26091 N10 Atrial fibrillation 4943 6004 I48.91 [id number] Vinnie Garcia DO [facility] ([facility]) [address] [place] [id number] 5 09/08/2023 08:20:56 09/11/2023 13:25:11 Spinal stenosis of lumbar region 46049029 M48.062 Neurogenic urinary bladder 500220457 N31.9 Atrial fibrillation 4943 6004 I48.91 Essential hypertension 42466118 I10 [id number] Vinnie Garcia DO [facility] ([facility]) [address] [place] [address] 09/22/2023 08:49:25 10/11/2023 20:20:29 Acute urinary tract infection 294221506 N39.0 [id number] Vinnie Garcia DO [facility] ([facility]) [address] [place] [id number] 5 10/13/2023 07:55:28 10/14/2023 09:02:24 [id number] Vinnie Garcia DO [facility] ([facility]) [address] [place] [phone] 5 10/20/2023 12:08:00 10/21/2023 14:19:12 Hospital inpatient stay within past 30 days [id number] 106 Z76.89 Acute pyelonephritis 366 86338 N10 Essential hypertension 70947475 I10 Neurogenic urinary bladder 469313986 N31.9 Jose Luis hematuria 04682567 5 R31.0 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 7545751284 19286 E11.65 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 6251058 I11.0 Atrial fibrillation 4943 6004 I48.91 Need for [facility] care assistance [id number] Z74.1 [id number] Vinnie Garcia DO [facility] ([facility]) [address] [place] [id number] 5 11/03/2023 08:40:18 11/17/2023 08:02:09 Spinal stenosis of lumbar region 28946939 M48.062 Difficulty sleeping 3013 31612 Z72.820 Atrial fibrillation 4943 6004 I48.91 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 3155035 I11.0 Metabolic encephalopathy 27940430 G93.41 [id number] Vinnie Garcia DO [facility] ([facility]) [address] [place] [id number] 5 11/17/2023 08:11:46 11/23/2023 12:00:37 Acute urinary tract infection 765146929 N39.0 [id number] Vinnie Garcia DO [facility] ([facility]) [address] [place] [address] 12/22/2023 08:17:30 12/24/2023 10:58:55 Uncontrolled type 2 diabetes mellitus 397445755 E11.65 Atrial fibrillation 4943 6004 I48.91 [id number] Vinnie Garcia DO [facility] ([facility]) [address] [place] [address] 12/31/2023 08:25:54 12/31/2023 14:23:43 [id number] Vinnie Garcia DO [facility] ([facility]) [address] [place] [address] 01/12/2024 08:56:47 01/13/2024 10:08:49 [id number] Vinnie Garcia DO [facility] ([facility]) [address] [place] [address] 01/12/2024 11:36:10 01/14/2024 10:54:27 Need for personal care assistance [id number] 4885136 Z74.1 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 1822512048 70943 E11.65 Atrial fibrillation 4943 6004 I48.91 Neurogenic urinary bladder 508085443 N31.9 [id number] Vinnie Garcia DO [facility] ([facility]) [address] [place] [address] 02/16/2024 08:06:58 02/17/2024 08:34:42 [id number] Vinnie Garcia DO [facility] ([facility]) [address] [place] [id number] 5 03/03/2024 14:43:36 03/08/2024 10:00:49 Hypertensive heart disease with congestive heart failure 3969538 I11.0 [id number] Vinnie Garcia DO [facility] ([facility]) [address] [place] [address] 03/17/2024 09:35:21 03/21/2024 11:43:22 [id number] Vinnie Garcia DO [facility] ([facility]) [address] [place] [address] 03/22/2024 13:32:15 08/17/2024 12:52:07 [id number] [facility] ([facility]) [address] [place] [address] 03/23/2024 12:47:26 04/10/2024 22:57:16 Sepsis 02653686 A41.9 etapenem and fluconazol e Acute urin viola tract infection 411093184 N39.0 hospital records reviewed and meds reconciled . pt is doing well. continue current meds and therapy [id number] Vinnie Garcia DO [facility] ([facility]) [address] [place] [address] 03/29/2024 08:20:20 03/30/2024 08:39:55 [id number] Vinnie Garcia DO [facility] ([facility]) [address] [place] [address] 03/31/2024 11:01:06 03/31/2024 17:44:40 Hospital inpatient stay within past 30 days 0678220285 106 Z76.89 Metabolic encephalopathy 92382245 G93.41 Acute urin viola tract infection 510209772 N39.0 [id number] Vinnie Garcia DO [facility] ([facility]) [address] [place] [address] 04/12/2024 08:14:54 04/12/2024 18:01:31 Hospital inpatient stay within past 30 days [id number] 106 Z76.89 Acute pyelonephritis 366 84088 N10 Acute urin viola tract infection 271882054 N39.0 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 8152968 I11.0 [id number] Vinnie Garcia DO [facility] ([facility]) [address] [place] [address] 04/26/2024 12:28:28 04/26/2024 15:48:19 Neurogenic urinary bladder 546739854 N31.9 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 0882303439 16513 E11.65 Atrial fibrillation 4943 6004 I48.91 Essential hypertension 89774604 I10 [id number] Vinnie Garcia DO [facility] ([facility]) [address] [place] [address] 05/03/2024 08:14:45 05/04/2024 08:41:49 [id number] Vinnie Garcia DO [facility] ([facility]) [address] [place] [address] 05/05/2024 08:27:21 05/05/2024 15:42:04 Hospital inpatient stay within past 30 days 3910730412 106 Z76.89 Osteomyelitis 05808173 M 86.9 Lumbar discitis 54831701 2 M46.46 Neurogenic urinary bladder 602049659 N31.9 [id number] Vinnie Garcia DO [facility] ([facility]) [address] [place] [address] 05/17/2024 08:30:30 05/17/2024 15:38:29 Hyperglycemia due to type 2 diabetes mellitus 2607373363 63795 E11.65 Lumbar discitis 77235760 2 M46.46 Atrial fibrillation 4943 6004 I48.91 [id number] Vinnie Garcia DO [facility] ([facility]) [address] [place] [address] 05/24/2024 08:53:24 05/24/2024 17:01:30 Acute urinary tract infection 832683871 N39.0 Atrial fibrillation 4943 6004 I48.91 Chronic pain 05255120 G8 9.29 [id number] Vinnie Garcia DO [facility] ([facility]) [address] [place] [address] 05/31/2024 13:56:48 05/31/2024 16:31:26 Neurogenic urinary bladder 894360442 N31.9 [id number] Vinnie Garcia DO [facility] ([facility]) [address] [place] [address] 06/07/2024 12:03:54 06/07/2024 16:23:12 Lumbar discitis 959416443 M46.46 Difficulty sleeping 3013 74798 Z72.820 Atrial fibrillation 4943 6004 I48.91 [id number] Vinnie Garcia DO [facility] ([facility]) [address] [place] [address] 06/16/2024 08:27:14 06/16/2024 16:12:57 Neurogenic urinary bladder 320993745 N31.9 [id number] Vinnie DO Jose [facility] ([facility]) [address] [place] [address] 06/30/2024 08:12:55 07/03/2024 13:51:10 [id number] Vinnie GarciaDO [facility] ([facility]) [address] [place] [address] 11/21/2024 14:33:52 11/22/2024 14:19:13 Hospital inpatient stay within past 30 days 5184198553 106 Z76.89 Essential hypertension 35049364 I10 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 0912558329 53161 E11.65 Health Concerns Section Related Observation LastModified by Organization Detai ls LastModified Time None Recorded Concern Status LastModified by Organization Details LastModified Time None Recorded Advance Directives Directive None Recorded Payers Encounter Date Sequence Insurance Name Policy Number Policy Mueller Covered Member ID Mueller Member ID Guarantor Name 05/31/2024 [facility] Raphael Deal [id number] Raphael Deal 06/07/2024 [facility] Raphael Deal [id number] Raphael Deal 06/16/2024 [facility] Raphael Deal [id number] Raphael Deal 06/30/2024 [facility] Raphael Deal [id number] Raphael Deal 11/21/2024 1 [employer] (MEDICARE REPLACEMENT/ ADVANTAGE - PPO) Raphael Deal [id number] Raphael Deal Notes Date Note Type Note Provider Name and Address Organization Details Recorded Time 4 text/html HypertensionReported bypatient.Severity:Grade 1 (130-139/80-89) Duration:has noted for years Alleviating Factors:medication Vinnie Garcia DO [address] [place] [address], [phone], [facility] Leoncio Pascual [facility]/01/2024 08:51:11 4 text/html HypertensionReported bypatient.Severity:Grade 1 (130-139/80-89) Duration:has noted for years Alleviating Factors:medication Vinnie Garcia DO [address] [place] [address], [phone], [facility], Kayla 06/08/2024 08:46:05 4 text/html HypertensionReported bypatient.Severity:Grade 1 (130-139/80-89) Duration:has noted for years Alleviating Factors:medication Vinnie Garcia [address], [address], [facility] Tejinder, Kayla 06/20/2024 14:43:04 5 text/html HypertensionReported bypatient.Severity:Grade 1 (130-139/80-89) Duration:has noted for years Alleviating Factors:medication Vinnie Garcia DO [address] [place] [address], [address], [facility], Kayla 11/22/2024 14:19:10
--- OUTSIDE RECORDS SUMMARY | 2024-11-26 18:49 | XMS_ITS | Continuity of Care Document ---
Author Organization [facility] Tejinder, Kayla, [facility] ([facility]) Address [address] [address] Assessment No assessment recorded. Plan of Treatment [...] Modified By Organization Details Last Modified Time 11/21/2024 [id number] transferred back from outside facility; continue to [place] wounds; sugars too high; increase glargine to 15 units. d/c prn lasix. schedule lasix 20mg daily. schedule cbc,bmp,a1c q 3 monhts. Not available 11/22/2024 14:18:52 Reason for Referral None Reported. 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 3 12:23:27 Neurogenic urinary bladder 984891311 Active 2022 [facility], [facility] 3 12:23:29 Essential hypertensi on 89294385 Active 2022 [facility], [facility] 3 12:23:30 Difficulty sleeping 817596914 Active 2022 [facility], [facility] 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 3 12:10:22 Uncontroll ed type 2 diabetes mellitus 273603650 Active 2022 [facility], [facility] 3 12:10:23 Acute urinary tract infection 680772312 Active 2022 [facility], [facility] 3 12:10:26 Sepsis 41572079 Active 2022 [facility], [facility] 3 15:15:01 Metabolic encephalop athy 95904612 Active 2022 [facility], [facility] 3 15:15:02 Pneumonia 223047876 Active 2022 [facility], [facility] 3 15:15:02 Acute pyelonephr itis 47151840 Active 2022 [facility], [facility] 3 15:15:04 Anemia due to blood loss 272244836 Active 2022 [facility], [facility] 3 15:15:06 Need for personal care assistance 5293839729971 9106 Active 2023 [facility], [facility] 4 13:09:05 Chronic pain 59199378 Active 2023 [facility], [facility] 4 15:47:08 Osteomyeli tis 93732308 [facility] 12:18:14 Lumbar discitis 870740140 [facility] 12:18:29 Problem Notes None recorded. [...] sent to pharmacy . *dose increase *; 96524; Recorded 01/22/20 22 12:43PM by Jackeline Todd, RN (Authori zed through Vinnie Garcia DO), [...] active 0; Recorded 01/22/20 22 8:07AM by Jackeline Todd RN, Office Visit; Not Available Not [...] active 0; Recorded 01/22/20 22 8:07AM by Jackeline Todd RN, Office Visit; Not Available Not Available Not Available lisinopri l daily active 0; Recorded 01/22/20 22 8:07AM by Jackeline Todd RN, Office Visit; Not Available Not Available Not Available metformin two times daily active 0; Recorded 01/22/20 22 8:07AM by Jackeline Todd RN, Office Visit; Not Available Not Available Not Available Novolog FlexPen U-100 Insulin active 0; Recorded 01/22/20 22 8:07AM by Jackeline Todd RN, Office Visit; Not Available Not [...] Updated DateTime 5 172.72 cm 28 kg/m2 41739 g 67 /min 18 /min 98.1 [degF] 96 % 96 % 98 mm[Hg] 62 mm[Hg] JACKELINE Arnett TODD [facility] 13:50:44 Social History None recorded. Functional Status None recorded. Mental Status None recorded. Family History Nothing Reported. Medical History No medical history recorded. Immunizations Vaccine Type Date Status Note Provider Nam e and Address Organization Details Recorded Time Influenza, split virus, trivalent, preservative 0 completed Not Available [facility] 02:33:15 Past Encounters Encounter ID Performer Location Encounter Start Date Encounter Closed Date Diagnosis/Indication Diagnosis SNOMED-CT Code Diagnosis ICD10 Code Diagnosis Note [id number] Vinnie Garcia DO [facility] ([facility]) [address] [place] [address] 11/21/2024 14:33:52 11/22/2024 14:19:13 Hospital inpatient stay within past 30 days 3794352304 106 Z76.89 Essential hypertension 30629581 I10 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 9614756008 12356 E11.65 Health Concerns Section Related Observation LastModified by Organization Detai ls LastModified Time None Recorded Concern Status LastModified by Organization Details LastModified Time None Recorded Payers Encounter Date Sequence Insurance Name Policy Number Policy Mueller Covered Member ID Mueller Member ID Guarantor Name 11/21/2024 1 [employer] (MEDICARE REPLACEMENT/ ADVANTAGE - PPO) Raphael Deal [id number] Raphael Deal Notes Date Note Type Note Provider Name and Address Organization Details Recorded Time text/html HypertensionReported bypatient.Severity:Grade 1 (130-139/80-89) Duration:has noted for years Alleviating Factors:medication Vinnie Garcia DO [address] [place] [address], [phone], [facility] 11/22/2024 14:19:10
--- OUTSIDE RECORDS SUMMARY | 2024-11-26 18:50 | XMS_ITS | Clinical Summary ---
Author Organization [facility] Address [address] [facility] Attn: Epic Prelude ADT WILLEM PAUL [address] Care Team Providers Care Last Sawyer Name Role Phone Unavailable Primary Care Provider Unavailabl e Allergies No known active allergies Medications mometasone (NASONEX) 50 mcg/actuation Union, Non-AerosolIndi cations:Allergi c rhinitis Administer 1 Union in each nostril 2 times daily. 17 Gram 0 5 Active albuterol sulfate HFA 90 mcg/actuation aerosol inhaler Take 2 Puffs by inhalation every 4 hours as needed for Shortness of Breath. Active cholecalciferol , vitamin D3, 1,000 unit Take 1,000 Units by mouth daily. Active coenzyme Q10 Capsule Take 10 mg by mouth daily. Active Cranberry 500 mg Capsule Take 500 mg by mouth daily. Active cyanocobalamin 1,000 mcg Tablet Take 1,000 mcg by mouth daily. Active fluticasone propion-salmete roL (ADVAIR DISKUS,WIXELA INHUB) 100-50 mcg/dose disk inhaler Take 1 Puff by inhalation 2 times daily. Active fluticasone propionate (FLONASE) 50 mcg/spray Union, Suspension nasal inhaler Administer 2 Sprays in each nostril daily. Active gabapentin (NEURONTIN) 800 mg tablet Take 400 mg by mouth 3 times daily. Active galantamine (RAZADYNE) 4 mg tablet Take 4 mg by mouth 2 times daily. Active metFORMIN (GLUCOPHAGE XR) 500 mg Extended Release 24 hour tablet Take 500 mg by mouth daily. Active methocarbamoL (ROBAXIN) 750 mg tablet Take 750 mg by mouth 4 times daily. Active multivitamin (DAILY-ANA) tablet Take 1 Tablet by mouth daily. Active rosuvastatin (CRESTOR) 40 mg tablet Take 40 mg by mouth daily at bedtime. Active tamsulosin (FLOMAX) 0.4 mg capsule Take 0.4 mg by mouth daily. At bedtime Active furosemide (LASIX) 20 mg tablet Take 20 mg by mouth 2 times daily. PRN Active finasteride (Proscar) 5 mg tablet Take 1 Tablet (5 mg) by mouth daily. 3 Active metoprolol tartrate (LOPRESSOR) 100 mg tablet Take 1 Tablet (100 mg) by mouth 2 times daily. 3 Active Menthol-Zinc Oxide (CALMOSEPTINE) 0.44-20.6 % Ointment Apply to affected area daily. Apply to bilateral buttocks for prevention of skin breakdown Active melatonin 1 mg Tablet Take 1 mg by mouth daily at bedtime. Active pantoprazole (PROTONIX) 40 mg Tablet, Delayed Release (E.C.) Take 1 Tablet (40 mg) by mouth daily. 4 Active insulin glargine-yfgn 100 unit/mL pen syringe Inject 12 Units by subcutaneous injection daily with breakfast. 4 Active insulin lispro (HumaLOG,ADMELO G) 100 unit/mL pen syringe Inject 0-12 Units by subcutaneous injection 3 times daily with meals. 4 Active insulin lispro (HumaLOG,ADMELO G) 100 unit/mL pen syringe Inject 0-6 Units by subcutaneous injection daily at bedtime. 4 Active HYDROcodone-delphine taminophen (NORCO) 7.5-325 mg TabletIndicatio ns:Lumbar discitis Take 1 Tablet by mouth every 4 hours as needed for Pain, Pain, Moderate or Pain, Severe. Max Daily Amount: 6 Tablets 4 Active Active Problems Problem Noted Date Diagnosed Date Lumbar discitis 06/24/2024 Protein-calorie malnutrition, moderate 4 Nephrostomy status 06/22/2024 C. difficile colitis 06/22/2024 Acute kidney injury superimposed on CKD 07/08/20 23 Sepsis without acute organ dysfunction 3 Acute on chronic diastolic heart failure 023 Persistent atrial fibrillation 05/25/2023 Paroxysmal atrial fibrillation 05/24/2023 Severe sepsis with septic shock 05/21/2023 UTI (urinary tract infection) 05/21/2023 Atrial fibrillation with RVR 05/21/2023 CKD (chronic kidney disease) 05/21/2023 Type 2 diabetes mellitus with hyperglycemia 05/05 Congestive heart failure 05/21/2023 Essential hypertension 05/21/2023 Urinary obstruction 05/21/2023 Acute metabolic encephalopathy 05/21/[address] prior to arrival 023 Bilateral hydronephrosis 05/21/2023 BPH with obstruction/lower urinary tract symptom s 05/21/2023 H/O prostate cancer 05/21/2023 ALONSO (obstructive sleep apnea) 05/21/2023 Class 2 severe obesity with serious comorbidity in adult 05/21/2023 Encounters Date Type Department Care Team Description 11/22/2024 External Device Data [facility] Provider, Abstract 11/15/2024 External Device Data [facility] Provider, Abstract 10/27/2024 External Device Data [facility] Provider, Abstract 10/25/2024 External Device Data [facility] Provider, Abstract 10/18/2024 External Device Data [facility] Provider, Abstract 09/12/2024 Orders Only [facility] [address] [place] [id number] Provider, Abstract 08/30/2024 External Device Data [facility] Provider, Abstract 08/29/2024 10:45 AM RESPITE COORDINATOR Video Visit [facility] [address] [place] [phone] Teri Gonzláes, RACIEL Encounter for medication management (Primary Dx); Nephrostomy status ([facility]); Lumbar discitis; Urinary tract infection associated with catheterization of urinary tract, unspecified indwelling urinary catheter type, subsequent encounter from Last 3 Months Family History Medical History Relation Name Comments Cancer Maternal Grandmother Heart Disease Mother Stroke Mother Relation Name Status Comments Maternal Grandmother Mother Social History Tobacco Use Types Packs/Day Years Used Date Smoking Tobacco: Never Smokeless Tobacco: Never Tobacco Cessation:Counseling Given: Not Answered Alcohol Use Standard Drinks/Week Comments Never 0 [...] on file Legal Sex Male 2:43 AM RESPITE COORDINATOR Gender Identity Not on file Sexual Orientation Not on file Last Filed Vital Signs Vital Sign Reading Time Taken Comments Blood Pressure 126/89 07/08/2024 9:39 AM CDT Pulse 98 07/08/2024 9:39 AM CDT Temperature 36.2 ??C (97.1 ??F) 07/08/2024 7:13 AM CD T Respiratory Rate 15 07/08/2024 7:13 AM CDT Oxygen Saturation 96% 07/08/2024 7:13 AM CDT Inhaled Oxygen Concentration - - Weight 86.6 kg (191 lb) 08/29/2024 10:31 AM RESPITE COORDINATOR Height 172.7 cm (5' 8 ) 08/29/2024 10:31 AM RESPITE COORDINATOR Body Mass Index 29.04 08/29/2024 10:31 AM RESPITE COORDINATOR Plan of Treatment Health Maintenance Due Date Last Done Comments DIABETES ANNUAL FOOT EXAM 1967 DIABETES ANNUAL RETINAL EXAM 1967 DIABETES MICROALBUMIN ANNUAL SCREEN 1967 LDL CHOLESTEROL ANNUAL 1967 COLORECTAL SCREENING 1994 Colorectal Cancer Screening 1994 FIT-DNA Q 3 years 1994 FIT/FOBT Q 1 year 1994 Flex Sig/CT Colonography Q 5 years 1994 RSV VACCINE (60+ or ) (1 - 1-dose 75+ series) 02/10/2024 INFLUENZA VACCINE (#1) 2024 3, 06/27/2021, 07/13/2020, Additional history exists DIABETES HBA1C Q 6 MONTHS 12/23/2024 06/25/2024, 11/2022 DTAP/TDAP/TD VACCINES (5 - T d or Tdap) 11/11/2031 11/11/2021, 05/04/2014, 08/05/2007, Additional history exists PNEUMOCOCCAL VACCINE 65+ YEARS Completed 0 03/13/2016, 08/14/2015, 05/04/2014, Additional history exists ZOSTER VACCINE Completed 11/25/2022, 05/2022, 07/17/2009 Medical Devices Implanted Type Area Flight Technician Device Identifier Shelf Expiration Date Model / Serial / Lot 8f Flexima Nephrostomy- Implanted:Qty: 1 on 06/24/2024 by Delvin Everett MD Catheter Right: Kidney 02/24/2027 / / [id number] Flexima Nephrostomy- Implanted:Qty: 1 on 06/24/2024 by Delvin Everett MD Catheter Left: Kidney 04/04/2027 / / [id number] Procedures Procedure Name Priority Date/Time Associated Diagnosis Comments HEMOGLOBIN A1C Routine 06/25/2024 5:01 AM CDT from Last 3 Months or Most Recently Relevant to Health Maintenance Results * (ABNORMAL) HEMOGLOBIN A1C (06/25/2024 5:01 AM CDT) HEMOGLOBIN A1C 7.0(H) <=5.6 % 06/27/2024 11:[address] [facility] [email or web address] [facility] EST. AVG GLUCOSE, A1C 154 mg/dL 06/27/2024 11:01 AM CDT [facility] Blood Venipuncture / Unknown 06/25/2024 5:01 AM CDT 06/25/2024 5:[address] [facility] - 06/27/2024 11:01 AM CDT HGB A1C INTERPRETATION NORMAL: ? <5.7% PRE-DIABETES: 5.7 - 6.4% DIABETES: ? 6.5% OR GREATER us Michael White MD CHEMISTRY ORDERABLES Final Resul t [facility] [email or web address] [facility] CLIA # [id number] [facility] [address] from Last 3 Months or Most Recently Relevant to Health Maintenance [facility] [employer] [facility] [employer] Advance Directives For more information, please contact: [phone] Documents on File Type Date Recorded Patient Supervisor Taping Expl anation Advance Directive POA 05/22/2023 3:04 PM A dvance Directive POA * Full Code (Latest Code Status on File) Date Activated Date Inactivated Comments 06/22/2024 10:50 AM 07/08/2024 1:13 PM * Full Code Date Activated Date Inactivated Comments 07/06/2023 3:06 PM 07/17/2023 1:09 AM * Full Code Date Activated Date Inactivated Comments 05/21/2023 1:51 AM 05/27/2023 7:43 PM
--- OUTSIDE RECORDS SUMMARY | 2024-11-26 18:51 | XMS_ITS ---
Author Organization [facility] Address [address] [place] [address] Care Team Providers Care Hot Oiler Name Role Phone Trisha Maxwell MD Primary Care Provider ALISA Hernandez Unavailable [phone] REASON FOR VISIT Referral- Urinary Outlet Obstruction Encounters Encounter Location Date Provider Diagnosis [facility] [address] [place] [facility] [place] [address] 07/07/2023 ALISA MANZANO Plan Of Treatment No Information Progress Notes * LOBITO RaphaelDOB:[birth year] (73 yo M)Acc No.[id number]:07/07/2023 Patient:?ALONARaphael GÓMEZ :1950???Age:73 Y???Sex:Male Address:[address] [place] [address], [place] [address] * true * Date:? Generated for Nai irwin/Cyndie/eTransmitting on:?11/26/2024 06:50 PM PEOPLESOFT ANALYST
--- OUTSIDE RECORDS SUMMARY | 2024-11-26 18:51 | XMS_ITS ---
Author Organization [facility] Address Unknown Problems Problem Status Start Date End Date CANDIDIASIS, UNSPECIFIED (B37.9 - ICD-10-CM) ACTIVE 10/15/2021 ENCEPHALOPATHY, UNSPECIFIED (G93.40 - ICD-10-CM) ACTIV E 10/11/2021 SEPSIS, UNSPECIFIED ORGANISM (A41.9 - ICD-10-CM) ACTIV E 10/11/2021 NON-PRESSURE CHRONIC ULCER O F OTHER PART OF LEFT FOOT WITH UNSPECIFIED SEVERITY (L97.529 - ICD-10-CM) ACTIVE 10/11/2021 TYPE 2 DIABETES MELLITUS WIT H FOOT ULCER (E11.621 - ICD-10-CM) ACTIVE 10/11/2021 CHRONIC OBSTRUCTIVE PYELONEPHRITIS (N11.1 - ICD-10-CM) ACTIVE 10/11/2021 TYPE 2 DIABETES MELLITUS WIT H DIABETIC NEUROPATHY, UNSPECIFIED (E11.40 - ICD-10-CM) ACTIVE 10/11/2021 ESSENTIAL (PRIMARY) HYPERTENSION (I10 - ICD-10-CM) ACT MARITZA 10/11/2021 UNSPECIFIED ATRIAL FIBRILLATION (I48.91 - ICD-10-CM) A CTIVE 10/11/2021 CALCULUS OF KIDNEY (N20.0 - ICD-10-CM) ACTIVE CERVICALGIA (M54.2 - ICD-10-CM) ACTIVE 2 DEHYDRATION (E86.0 - ICD-10-CM) ACTIVE 2 HYPEROSMOLALITY AND HYPERNATREMIA (E87.0 - ICD-10-CM) ACTIVE 10/11/2021 ANEMIA, UNSPECIFIED (D64.9 - ICD-10-CM) ACTIVE 0 10/11/2021 OBSTRUCTIVE SLEEP APNEA (RUDI LT) (PEDIATRIC) (G47.33 - ICD-10-CM) ACTIVE 10/03/2021 SPINAL STENOSIS, LUMBAR CALLI ON WITH NEUROGENIC CLAUDICATION (M48.062 - ICD-10-CM) ACTIVE 10/03/2021 CHRONIC PAIN SYNDROME (G89.4 - ICD-10-CM) ACTIVE 10/03/2021 HYPERLIPIDEMIA, UNSPECIFIED (E78.5 - ICD-10-CM) ACTIVE 10/03/2021 PENITENTIARY (CURRENT) USE OF A NTICOAGULANTS (Z79.01 - ICD-10-CM) ACTIVE 10/03/2021 OTHER SPECIFIED DISEASES OF THE DIGESTIVE SYSTEM (K92.89 - ICD-10-CM) ACTIVE 10/03/2021 DELIRIUM DUE TO KNOWN PHYSIO LOGICAL CONDITION (F05 - ICD-10-CM) ACTIVE 10/03/2021 HISTORY OF FALLING (Z91.81 - ICD-10-CM) ACTIVE 1 OTHER SPECIFIED DISORDERS OF WHITE BLOOD CELLS (D72.89 - ICD-10-CM) ACTIVE 10/03/2021 ALLERGIC RHINITIS, UNSPECIFIED (J30.9 - ICD-10-CM) ACT MARITZA 10/03/2021 ACUTE KIDNEY FAILURE, UNSPECIFIED (N17.9 - ICD-10-CM) ACTIVE 10/03/2021 ANOREXIA (R63.0 - ICD-10-CM) ACTIVE 10/03/2021 Encounters Encounter Performer Performer Role Encounter Diagnoses Location Date Discharge - Discharged to home or self care [facility] 10/12/2021 01:00 am EST - 11/01/2021 11:00 am EST Social History
--- OUTSIDE RECORDS SUMMARY | 2024-11-26 18:51 | XMS_ITS | Continuity of Care Document ---
Author Organization [facility] ([facility]) Address [address] [place] [id number] Insurance Providers Payer Plan Claims Address Claims Phone Policy Number Group Number Relation Employer Guarantor Name Guarantor Guarantor Address Guarantor Phone [facility] [employer] [address] [address], [place] [address] tel:[phone] [id number] Self Raphael Deal [address] [place] [id number] [employer] [address] [address] [id number] Self Raphael Deal [address] [place] [id number] [facility] [address] [address] tel:[phone] Self Raphael Deal [address] [place] [address] Problems Condition ICD9 code ICD10 code SNOMED code Start Date End Date S tatus Osteomyelitis of vertebra, lumbar region M46.26 07/08/2024 A ctive Muscle weakness (generalized) M62.81 07/22/2024 Active Alzheimer's disease, unspecified G30.9 07/08/2024 Active Type 2 diabetes mellitus with 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 07/08/2024 Active Hypertensive chronic kidney disease with stage 1 through stage 4 chronic kidney disease, or unspecified chronic kidney disease I12.9 07/08/2024 Active Other low back pain M54.59 07/08/2024 A ctive nursing home (current) use of insulin Z79.4 07/08/2024 Active nursing home (current) use of oral hypoglycemic drugs Z79.84 07/08/2024 Active Retention of urine, unspecified R33.9 10/13/2024 Active Anemia, unspecified D64.9 10/13/2024 A ctive Unspecified diastolic (congestive) heart failure I50.30 10/13/2024 Active Urinary tract infection, site not specified N39.0 10/13/2024 Active Personal history of malignant neoplasm of prostate Z85.46 10/13/2024 Active Unspecified urethral stricture, male, unspecified site N35.919 10/13/2024 Active Chronic obstructive pulmonary disease, unspecified J44.9 10/13/2024 Active Methicillin resistant Staphylococcus aureus infection as the cause of diseases classified elsewhere B95.62 10/13/2024 Active Unspecified Escherichia coli [E. 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 10/13/2024 Active Urinary tract infection, site not specified N39.0 10/13/2024 Active Personal history of malignant neoplasm of prostate Z85.46 10/13/2024 Active Chronic kidney disease, unspecified N18.9 08/23/2024 Active Discitis, unspecified, lumbar region M46.46 07/08/2024 Active Enterocolitis due to Clostridium difficile, not specified as recurrent A04.72 07/08/2024 Active Paroxysmal atrial fibrillation I48.0 07/08/2024 Active Benign prostatic hyperplasia with lower urinary tract symptoms N40.1 07/08/2024 Ac tive Unspecified hydronephrosis N13.30 07/08/2024 Active Type 2 diabetes mellitus with 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 07/08/2024 Active Results Test Value / Unit Interpretation Reference Ran ge Blood chemistry[[id number]]? Glucose [Mass/volume] in Ser um or Plasma [2345-7] 273 mg/dL N Blood chemistry[[id number]]? Glucose [Mass/volume] in Ser um or Plasma [2345-7] 204 mg/dL N Blood chemistry[[id number]]? Glucose [Mass/volume] in Ser um or Plasma [2345-7] 260 mg/dL N Blood chemistry[[id number]]? Glucose [Mass/volume] in Ser um or Plasma [2345-7] 220 mg/dL N Blood chemistry[[id number]]? Glucose [Mass/volume] in Ser um or Plasma [2345-7] 253 mg/dL N Blood chemistry[[id number]]? Glucose [Mass/volume] in Ser um or Plasma [2345-7] 174 mg/dL N Blood chemistry[[id number]]? Glucose [Mass/volume] in Ser um or Plasma [2345-7] 229 mg/dL N Blood chemistry[[id number]]? Glucose [Mass/volume] in Ser um or Plasma [2345-7] 229 mg/dL N Blood chemistry[[id number]]? Glucose [Mass/volume] in Ser um or Plasma [2345-7] 227 mg/dL N Blood chemistry[[id number]]? Glucose [Mass/volume] in Ser um or Plasma [2345-7] 372 mg/dL N Blood chemistry[[id number]]? Glucose [Mass/volume] in Ser um or Plasma [2345-7] 280 mg/dL N Blood chemistry[[id number]]? Glucose [Mass/volume] in Ser um or Plasma [2345-7] 239 mg/dL N Blood chemistry[[id number]]? Glucose [Mass/volume] in Ser um or Plasma [2345-7] 252 mg/dL N Blood chemistry[[id number]]? Glucose [Mass/volume] in Ser um or Plasma [2345-7] 340 mg/dL N Blood chemistry[[id number]]? Glucose [Mass/volume] in Ser um or Plasma [2345-7] 304 mg/dL N Blood chemistry[[id number]]? Glucose [Mass/volume] in Ser um or Plasma [2345-7] 375 mg/dL N Blood chemistry[[id number]]? Glucose [Mass/volume] in Ser um or Plasma [2345-7] 302 mg/dL N Blood chemistry[[id number]]? Glucose [Mass/volume] in Ser um or Plasma [2345-7] 264 mg/dL N Blood chemistry[[id number]]? Glucose [Mass/volume] in Ser um or Plasma [2345-7] 217 mg/dL N Blood chemistry[[id number]]? Glucose [Mass/volume] in Ser um or Plasma [2345-7] 363 mg/dL N Blood chemistry[[id number]]? Glucose [Mass/volume] in Ser um or Plasma [2345-7] 252 mg/dL N Blood chemistry[[id number]]? Glucose [Mass/volume] in Ser um or Plasma [2345-7] 325 mg/dL N Blood chemistry[[id number]]? Glucose [Mass/volume] in Ser um or Plasma [2345-7] 249 mg/dL N Blood chemistry[[id number]]? Glucose [Mass/volume] in Ser um or Plasma [2345-7] 227 mg/dL N Blood chemistry[[id number]]? Glucose [Mass/volume] in Ser um or Plasma [2345-7] 217 mg/dL N Blood chemistry[[id number]]? Glucose [Mass/volume] in Ser um or Plasma [2345-7] 267 mg/dL N Blood chemistry[[id number]]? Glucose [Mass/volume] in Ser um or Plasma [2345-7] 200 mg/dL N Blood chemistry[[id number]]? Glucose [Mass/volume] in Ser um or Plasma [2345-7] 266 mg/dL N Blood chemistry[[id number]]? Glucose [Mass/volume] in Ser um or Plasma [2345-7] 180 mg/dL N Blood chemistry[[id number]]? Glucose [Mass/volume] in Ser um or Plasma [2345-7] 252 mg/dL N Blood chemistry[[id number]]? Glucose [Mass/volume] in Ser um or Plasma [2345-7] 251 mg/dL N Blood chemistry[[id number]]? Glucose [Mass/volume] in Ser um or Plasma [2345-7] 222 mg/dL N Blood chemistry[[id number]]? Glucose [Mass/volume] in Ser um or Plasma [2345-7] 230 mg/dL N Blood chemistry[[id number]]? Glucose [Mass/volume] in Ser um or Plasma [2345-7] 265 mg/dL N Blood chemistry[[id number]]? Glucose [Mass/volume] in Ser um or Plasma [2345-7] 251 mg/dL N Blood chemistry[[id number]]? Glucose [Mass/volume] in Ser um or Plasma [2345-7] 230 mg/dL N Blood chemistry[[id number]]? Glucose [Mass/volume] in Ser um or Plasma [2345-7] 191 mg/dL N Blood chemistry[[id number]]? Glucose [Mass/volume] in Ser um or Plasma [2345-7] 182 mg/dL N Blood chemistry[[id number]]? Glucose [Mass/volume] in Ser um or Plasma [2345-7] 180 mg/dL N Blood chemistry[[id number]]? Glucose [Mass/volume] in Ser um or Plasma [2345-7] 295 mg/dL N Blood chemistry[[id number]]? Glucose [Mass/volume] in Ser um or Plasma [2345-7] 193 mg/dL N Blood chemistry[[id number]]? Glucose [Mass/volume] in Ser um or Plasma [2345-7] 233 mg/dL N Blood chemistry[[id number]]? Glucose [Mass/volume] in Ser um or Plasma [2345-7] 291 mg/dL N Blood chemistry[[id number]]? Glucose [Mass/volume] in Ser um or Plasma [2345-7] 177 mg/dL N Blood chemistry[[id number]]? Glucose [Mass/volume] in Ser um or Plasma [2345-7] 190 mg/dL N Blood chemistry[[id number]]? Glucose [Mass/volume] in Ser um or Plasma [2345-7] 200 mg/dL N Blood chemistry[[id number]]? Glucose [Mass/volume] in Ser um or Plasma [2345-7] 223 mg/dL N Blood chemistry[[id number]]? Glucose [Mass/volume] in Ser um or Plasma [2345-7] 351 mg/dL N Blood chemistry[[id number]]? Glucose [Mass/volume] in Ser um or Plasma [2345-7] 251 mg/dL N Blood chemistry[[id number]]? Glucose [Mass/volume] in Ser um or Plasma [2345-7] 285 mg/dL N Blood chemistry[[id number]]? Glucose [Mass/volume] in Ser um or Plasma [2345-7] 298 mg/dL N Blood chemistry[[id number]]? Glucose [Mass/volume] in Ser um or Plasma [2345-7] 296 mg/dL N Blood chemistry[[id number]]? Glucose [Mass/volume] in Ser um or Plasma [2345-7] 107 mg/dL N Blood chemistry[[id number]]? Glucose [Mass/volume] in Ser um or Plasma [2345-7] 273 mg/dL N Blood chemistry[[id number]]? Glucose [Mass/volume] in Ser um or Plasma [2345-7] 327 mg/dL N Blood chemistry[[id number]]? Glucose [Mass/volume] in Ser um or Plasma [2345-7] 176 mg/dL N Blood chemistry[[id number]]? Glucose [Mass/volume] in Ser um or Plasma [2345-7] 278 mg/dL N Blood chemistry[[id number]]? Glucose [Mass/volume] in Ser um or Plasma [2345-7] 199 mg/dL N Blood chemistry[[id number]]? Glucose [Mass/volume] in Ser um or Plasma [2345-7] 253 mg/dL N Blood chemistry[[id number]]? Glucose [Mass/volume] in Ser um or Plasma [2345-7] 241 mg/dL N Blood chemistry[[id number]]? Glucose [Mass/volume] in Ser um or Plasma [2345-7] 258 mg/dL N Blood chemistry[[id number]]? Glucose [Mass/volume] in Ser um or Plasma [2345-7] 169 mg/dL N Blood chemistry[[id number]]? Glucose [Mass/volume] in Ser um or Plasma [2345-7] 223 mg/dL N Blood chemistry[[id number]]? Glucose [Mass/volume] in Ser um or Plasma [2345-7] 227 mg/dL N Blood chemistry[[id number]]? Glucose [Mass/volume] in Ser um or Plasma [2345-7] 263 mg/dL N Blood chemistry[[id number]]? Glucose [Mass/volume] in Ser um or Plasma [2345-7] 239 mg/dL N Blood chemistry[[id number]]? Glucose [Mass/volume] in Ser um or Plasma [2345-7] 276 mg/dL N Blood chemistry[[id number]]? Glucose [Mass/volume] in Ser um or Plasma [2345-7] 214 mg/dL N Blood chemistry[[id number]]? Glucose [Mass/volume] in Ser um or Plasma [2345-7] 313 mg/dL N Blood chemistry[[id number]]? Glucose [Mass/volume] in Ser um or Plasma [2345-7] 256 mg/dL N Blood chemistry[[id number]]? Glucose [Mass/volume] in Ser um or Plasma [2345-7] 86 mg/dL N Blood chemistry[[id number]]? Glucose [Mass/volume] in Ser um or Plasma [2345-7] 181 mg/dL N Blood chemistry[[id number]]? Glucose [Mass/volume] in Ser um or Plasma [2345-7] 205 mg/dL N Blood chemistry[[id number]]? Glucose [Mass/volume] in Ser um or Plasma [2345-7] 204 mg/dL N Blood chemistry[[id number]]? Glucose [Mass/volume] in Ser um or Plasma [2345-7] 210 mg/dL N Blood chemistry[[id number]]? Glucose [Mass/volume] in Ser um or Plasma [2345-7] 176 mg/dL N Blood chemistry[[id number]]? Glucose [Mass/volume] in Ser um or Plasma [2345-7] 180 mg/dL N Blood chemistry[[id number]]? Glucose [Mass/volume] in Ser um or Plasma [2345-7] 252 mg/dL N Blood chemistry[[id number]]? Glucose [Mass/volume] in Ser um or Plasma [2345-7] 249 mg/dL N Blood chemistry[[id number]]? Glucose [Mass/volume] in Ser um or Plasma [2345-7] 224 mg/dL N Blood chemistry[[id number]]? Glucose [Mass/volume] in Ser um or Plasma [2345-7] 245 mg/dL N Blood chemistry[[id number]]? Glucose [Mass/volume] in Ser um or Plasma [2345-7] 285 mg/dL N Blood chemistry[[id number]]? Glucose [Mass/volume] in Ser um or Plasma [2345-7] 240 mg/dL N Blood chemistry[[id number]]? Glucose [Mass/volume] in Ser um or Plasma [2345-7] 318 mg/dL N Blood chemistry[[id number]]? Glucose [Mass/volume] in Ser um or Plasma [2345-7] 234 mg/dL N Blood chemistry[[id number]]? Glucose [Mass/volume] in Ser um or Plasma [2345-7] 344 mg/dL N Blood chemistry[[id number]]? Glucose [Mass/volume] in Ser um or Plasma [2345-7] 245 mg/dL N Blood chemistry[[id number]]? Glucose [Mass/volume] in Ser um or Plasma [2345-7] 241 mg/dL N Blood chemistry[[id number]]? Glucose [Mass/volume] in Ser um or Plasma [2345-7] 216 mg/dL N Blood chemistry[[id number]]? Glucose [Mass/volume] in Ser um or Plasma [2345-7] 228 mg/dL N Blood chemistry[[id number]]? Glucose [Mass/volume] in Ser um or Plasma [2345-7] 225 mg/dL N Blood chemistry[[id number]]? Glucose [Mass/volume] in Ser um or Plasma [2345-7] 210 mg/dL N Blood chemistry[[id number]]? Glucose [Mass/volume] in Ser um or Plasma [2345-7] 253 mg/dL N Blood chemistry[[id number]]? Glucose [Mass/volume] in Ser um or Plasma [2345-7] 268 mg/dL N Blood chemistry[[id number]]? Glucose [Mass/volume] in Ser um or Plasma [2345-7] 204 mg/dL N Blood chemistry[[id number]]? Glucose [Mass/volume] in Ser um or Plasma [2345-7] 237 mg/dL N Blood chemistry[[id number]]? Glucose [Mass/volume] in Ser um or Plasma [2345-7] 265 mg/dL N Blood chemistry[[id number]]? Glucose [Mass/volume] in Ser um or Plasma [2345-7] 199 mg/dL N Blood chemistry[[id number]]? Glucose [Mass/volume] in Ser um or Plasma [2345-7] 228 mg/dL N Blood chemistry[[id number]]? Glucose [Mass/volume] in Ser um or Plasma [2345-7] 287 mg/dL N Blood chemistry[[id number]]? Glucose [Mass/volume] in Ser um or Plasma [2345-7] 224 mg/dL N Blood chemistry[[id number]]? Glucose [Mass/volume] in Ser um or Plasma [2345-7] 244 mg/dL N Blood chemistry[[id number]]? Glucose [Mass/volume] in Ser um or Plasma [2345-7] 297 mg/dL N Blood chemistry[[id number]]? Glucose [Mass/volume] in Ser um or Plasma [2345-7] 178 mg/dL N Blood chemistry[[id number]]? Glucose [Mass/volume] in Ser um or Plasma [2345-7] 244 mg/dL N Blood chemistry[[id number]]? Glucose [Mass/volume] in Ser um or Plasma [2345-7] 149 mg/dL N Blood chemistry[[id number]]? Glucose [Mass/volume] in Ser um or Plasma [2345-7] 210 mg/dL N Blood chemistry[[id number]]? Glucose [Mass/volume] in Ser um or Plasma [2345-7] 150 mg/dL N Blood chemistry[[id number]]? Glucose [Mass/volume] in Ser um or Plasma [2345-7] 267 mg/dL N Blood chemistry[[id number]]? Glucose [Mass/volume] in Ser um or Plasma [2345-7] 94 mg/dL N Blood chemistry[[id number]]? Glucose [Mass/volume] in Ser um or Plasma [2345-7] 165 mg/dL N Blood chemistry[[id number]]? Glucose [Mass/volume] in Ser um or Plasma [2345-7] 267 mg/dL N Blood chemistry[[id number]]? Glucose [Mass/volume] in Ser um or Plasma [2345-7] 158 mg/dL N Blood chemistry[[id number]]? Glucose [Mass/volume] in Ser um or Plasma [2345-7] 266 mg/dL N Blood chemistry[[id number]]? Glucose [Mass/volume] in Ser um or Plasma [2345-7] 321 mg/dL N Blood chemistry[[id number]]? Glucose [Mass/volume] in Ser um or Plasma [2345-7] 261 mg/dL N Blood chemistry[[id number]]? Glucose [Mass/volume] in Ser um or Plasma [2345-7] 144 mg/dL N Blood chemistry[[id number]]? Glucose [Mass/volume] in Ser um or Plasma [2345-7] 220 mg/dL N Blood chemistry[[id number]]? Glucose [Mass/volume] in Ser um or Plasma [2345-7] 264 mg/dL N Blood chemistry[[id number]]? Glucose [Mass/volume] in Ser um or Plasma [2345-7] 255 mg/dL N Blood chemistry[[id number]]? Glucose [Mass/volume] in Ser um or Plasma [2345-7] 192 mg/dL N Blood chemistry[[id number]]? Glucose [Mass/volume] in Ser um or Plasma [2345-7] 218 mg/dL N Blood chemistry[[id number]]? Glucose [Mass/volume] in Ser um or Plasma [2345-7] 227 mg/dL N Glucose [Mass/volume] in Ser um or Plasma [2345-7] 178 mg/dL N Blood chemistry[[id number]]? Glucose [Mass/volume] in Ser um or Plasma [2345-7] 267 mg/dL N Blood chemistry[[id number]]? Glucose [Mass/volume] in Ser um or Plasma [2345-7] 216 mg/dL N Blood chemistry[[id number]]? Glucose [Mass/volume] in Ser um or Plasma [2345-7] 166 mg/dL N Blood chemistry[[id number]]? Glucose [Mass/volume] in Ser um or Plasma [2345-7] 197 mg/dL N Blood chemistry[[id number]]? Glucose [Mass/volume] in Ser um or Plasma [2345-7] 229 mg/dL N Blood chemistry[[id number]]? Glucose [Mass/volume] in Ser um or Plasma [2345-7] 223 mg/dL N Blood chemistry[[id number]]? Glucose [Mass/volume] in Ser um or Plasma [2345-7] 221 mg/dL N Blood chemistry[[id number]]? Glucose [Mass/volume] in Ser um or Plasma [2345-7] 202 mg/dL N Blood chemistry[[id number]]? Glucose [Mass/volume] in Ser um or Plasma [2345-7] 289 mg/dL N Blood chemistry[[id number]]? Glucose [Mass/volume] in Ser um or Plasma [2345-7] 87 mg/dL N Blood chemistry[[id number]]? Glucose [Mass/volume] in Ser um or Plasma [2345-7] 176 mg/dL N Blood chemistry[[id number]]? Glucose [Mass/volume] in Ser um or Plasma [2345-7] 270 mg/dL N Blood chemistry[[id number]]? Glucose [Mass/volume] in Ser um or Plasma [2345-7] 229 mg/dL N Blood chemistry[[id number]]? Glucose [Mass/volume] in Ser um or Plasma [2345-7] 164 mg/dL N Blood chemistry[[id number]]? Glucose [Mass/volume] in Ser um or Plasma [2345-7] 257 mg/dL N Blood chemistry[[id number]]? Glucose [Mass/volume] in Ser um or Plasma [2345-7] 245 mg/dL N Blood chemistry[[id number]]? Glucose [Mass/volume] in Ser um or Plasma [2345-7] 235 mg/dL N Blood chemistry[[id number]]? Glucose [Mass/volume] in Ser um or Plasma [2345-7] 287 mg/dL N Blood chemistry[[id number]]? Glucose [Mass/volume] in Ser um or Plasma [2345-7] 286 mg/dL N Glucose [Mass/volume] in Ser um or Plasma [2345-7] 286 mg/dL N Blood chemistry[[id number]]? Glucose [Mass/volume] in Ser um or Plasma [2345-7] 250 mg/dL N Blood chemistry[[id number]]? Glucose [Mass/volume] in Ser um or Plasma [2345-7] 312 mg/dL N Blood chemistry[[id number]]? Glucose [Mass/volume] in Ser um or Plasma [2345-7] 190 mg/dL N Blood chemistry[[id number]]? Glucose [Mass/volume] in Ser um or Plasma [2345-7] 210 mg/dL N Blood chemistry[[id number]]? Glucose [Mass/volume] in Ser um or Plasma [2345-7] 293 mg/dL N Blood chemistry[[id number]]? Glucose [Mass/volume] in Ser um or Plasma [2345-7] 339 mg/dL N Blood chemistry[[id number]]? Glucose [Mass/volume] in Ser um or Plasma [2345-7] 252 mg/dL N Blood chemistry[[id number]]? Glucose [Mass/volume] in Ser um or Plasma [2345-7] 295 mg/dL N Blood chemistry[[id number]]? Glucose [Mass/volume] in Ser um or Plasma [2345-7] 301 mg/dL N Blood chemistry[[id number]]? Glucose [Mass/volume] in Ser um or Plasma [2345-7] 343 mg/dL N Blood chemistry[[id number]]? Glucose [Mass/volume] in Ser um or Plasma [2345-7] 252 mg/dL N Blood chemistry[[id number]]? Glucose [Mass/volume] in Ser um or Plasma [2345-7] 300 mg/dL N Blood chemistry[[id number]]? Glucose [Mass/volume] in Ser um or Plasma [2345-7] 300 mg/dL N Blood chemistry[[id number]]? Glucose [Mass/volume] in Ser um or Plasma [2345-7] 399 mg/dL N Blood chemistry[[id number]]? Glucose [Mass/volume] in Ser um or Plasma [2345-7] 255 mg/dL N Blood chemistry[[id number]]? Glucose [Mass/volume] in Ser um or Plasma [2345-7] 275 mg/dL N Blood chemistry[[id number]]? Glucose [Mass/volume] in Ser um or Plasma [2345-7] 340 mg/dL N Blood chemistry[[id number]]? Glucose [Mass/volume] in Ser um or Plasma [2345-7] 292 mg/dL N Blood chemistry[[id number]]? Glucose [Mass/volume] in Ser um or Plasma [2345-7] 292 mg/dL N Blood chemistry[[id number]]? Glucose [Mass/volume] in Ser um or Plasma [2345-7] 328 mg/dL N Blood chemistry[[id number]]? Glucose [Mass/volume] in Ser um or Plasma [2345-7] 227 mg/dL N Blood chemistry[[id number]]? Glucose [Mass/volume] in Ser um or Plasma [2345-7] 287 mg/dL N Blood chemistry[[id number]]? Glucose [Mass/volume] in Ser um or Plasma [2345-7] 199 mg/dL N Blood chemistry[[id number]]? Glucose [Mass/volume] in Ser um or Plasma [2345-7] 286 mg/dL N Blood chemistry[[id number]]? Glucose [Mass/volume] in Ser um or Plasma [2345-7] 254 mg/dL N Blood chemistry[[id number]]? Glucose [Mass/volume] in Ser um or Plasma [2345-7] 220 mg/dL N Blood chemistry[[id number]]? Glucose [Mass/volume] in Ser um or Plasma [2345-7] 320 mg/dL N Blood chemistry[[id number]]? Glucose [Mass/volume] in Ser um or Plasma [2345-7] 299 mg/dL N Blood chemistry[[id number]]? Glucose [Mass/volume] in Ser um or Plasma [2345-7] 174 mg/dL N Blood chemistry[[id number]]? Glucose [Mass/volume] in Ser um or Plasma [2345-7] 257 mg/dL N Blood chemistry[[id number]]? Glucose [Mass/volume] in Ser um or Plasma [2345-7] 233 mg/dL N Blood chemistry[[id number]]? Glucose [Mass/volume] in Ser um or Plasma [2345-7] 267 mg/dL N Blood chemistry[[id number]]? Glucose [Mass/volume] in Ser um or Plasma [2345-7] 293 mg/dL N Blood chemistry[[id number]]? Glucose [Mass/volume] in Ser um or Plasma [2345-7] 263 mg/dL N Blood chemistry[[id number]]? Glucose [Mass/volume] in Ser um or Plasma [2345-7] 246 mg/dL N Blood chemistry[[id number]]? Glucose [Mass/volume] in Ser um or Plasma [2345-7] 242 mg/dL N Glucose [Mass/volume] in Ser um or Plasma [2345-7] 242 mg/dL N Blood chemistry[[id number]]? Glucose [Mass/volume] in Ser um or Plasma [2345-7] 335 mg/dL N Blood chemistry[[id number]]? Glucose [Mass/volume] in Ser um or Plasma [2345-7] 333 mg/dL N Blood chemistry[[id number]]? Glucose [Mass/volume] in Ser um or Plasma [2345-7] 239 mg/dL N Blood chemistry[[id number]]? Glucose [Mass/volume] in Ser um or Plasma [2345-7] 226 mg/dL N Blood chemistry[[id number]]? Glucose [Mass/volume] in Ser um or Plasma [2345-7] 239 mg/dL N Blood chemistry[[id number]]? Glucose [Mass/volume] in Ser um or Plasma [2345-7] 306 mg/dL N Blood chemistry[[id number]]? Glucose [Mass/volume] in Ser um or Plasma [2345-7] 292 mg/dL N Blood chemistry[[id number]]? Glucose [Mass/volume] in Ser um or Plasma [2345-7] 309 mg/dL N Blood chemistry[[id number]]? Glucose [Mass/volume] in Ser um or Plasma [2345-7] 271 mg/dL N Blood chemistry[[id number]]? Glucose [Mass/volume] in Ser um or Plasma [2345-7] 216 mg/dL N Blood chemistry[[id number]]? Glucose [Mass/volume] in Ser um or Plasma [2345-7] 279 mg/dL N Blood chemistry[[id number]]? Glucose [Mass/volume] in Ser um or Plasma [2345-7] 294 mg/dL N Blood chemistry[[id number]]? Glucose [Mass/volume] in Ser um or Plasma [2345-7] 170 mg/dL N Blood chemistry[[id number]]? Glucose [Mass/volume] in Ser um or Plasma [2345-7] 207 mg/dL N Blood chemistry[[id number]]? Glucose [Mass/volume] in Ser um or Plasma [2345-7] 333 mg/dL N Blood chemistry[[id number]]? Glucose [Mass/volume] in Ser um or Plasma [2345-7] 218 mg/dL N Blood chemistry[[id number]]? Glucose [Mass/volume] in Ser um or Plasma [2345-7] 263 mg/dL N Blood chemistry[[id number]]? Glucose [Mass/volume] in Ser um or Plasma [2345-7] 263 mg/dL N Blood chemistry[[id number]]? Glucose [Mass/volume] in Ser um or Plasma [2345-7] 262 mg/dL N Blood chemistry[[id number]]? Glucose [Mass/volume] in Ser um or Plasma [2345-7] 300 mg/dL N Blood chemistry[[id number]]? Glucose [Mass/volume] in Ser um or Plasma [2345-7] 300 mg/dL N Blood chemistry[[id number]]? Glucose [Mass/volume] in Ser um or Plasma [2345-7] 352 mg/dL N Blood chemistry[[id number]]? Glucose [Mass/volume] in Ser um or Plasma [2345-7] 171 mg/dL N Blood chemistry[[id number]]? Glucose [Mass/volume] in Ser um or Plasma [2345-7] 220 mg/dL N Blood chemistry[[id number]]? Glucose [Mass/volume] in Ser um or Plasma [2345-7] 284 mg/dL N Blood chemistry[[id number]]? Glucose [Mass/volume] in Ser um or Plasma [2345-7] 228 mg/dL N Blood chemistry[[id number]]? Glucose [Mass/volume] in Ser um or Plasma [2345-7] 228 mg/dL N Blood chemistry[[id number]]? Glucose [Mass/volume] in Ser um or Plasma [2345-7] 240 mg/dL N Blood chemistry[[id number]]? Glucose [Mass/volume] in Ser um or Plasma [2345-7] 154 mg/dL N Blood chemistry[[id number]]? Glucose [Mass/volume] in Ser um or Plasma [2345-7] 246 mg/dL N Blood chemistry[[id number]]? Glucose [Mass/volume] in Ser um or Plasma [2345-7] 260 mg/dL N Blood chemistry[[id number]]? Glucose [Mass/volume] in Ser um or Plasma [2345-7] 252 mg/dL N Blood chemistry[[id number]]? Glucose [Mass/volume] in Ser um or Plasma [2345-7] 99 mg/dL N Blood chemistry[[id number]]? Glucose [Mass/volume] in Ser um or Plasma [2345-7] 99 mg/dL N Blood chemistry[[id number]]? Glucose [Mass/volume] in Ser um or Plasma [2345-7] 293 mg/dL N Blood chemistry[[id number]]? Glucose [Mass/volume] in Ser um or Plasma [2345-7] 240 mg/dL N Blood chemistry[[id number]]? Glucose [Mass/volume] in Ser um or Plasma [2345-7] 203 mg/dL N Blood chemistry[[id number]]? Glucose [Mass/volume] in Ser um or Plasma [2345-7] 193 mg/dL N Blood chemistry[[id number]]? Glucose [Mass/volume] in Ser um or Plasma [2345-7] 193 mg/dL N Blood chemistry[[id number]]? Glucose [Mass/volume] in Ser um or Plasma [2345-7] 220 mg/dL N Blood chemistry[[id number]]? Glucose [Mass/volume] in Ser um or Plasma [2345-7] 164 mg/dL N Blood chemistry[[id number]]? Glucose [Mass/volume] in Ser um or Plasma [2345-7] 235 mg/dL N Blood chemistry[[id number]]? Glucose [Mass/volume] in Ser um or Plasma [2345-7] 183 mg/dL N Blood chemistry[[id number]]? Glucose [Mass/volume] in Ser um or Plasma [2345-7] 297 mg/dL N Blood chemistry[[id number]]? Glucose [Mass/volume] in Ser um or Plasma [2345-7] 221 mg/dL N Blood chemistry[[id number]]? Glucose [Mass/volume] in Ser um or Plasma [2345-7] 213 mg/dL N Blood chemistry[[id number]]? Glucose [Mass/volume] in Ser um or Plasma [2345-7] 212 mg/dL N Blood chemistry[[id number]]? Glucose [Mass/volume] in Ser um or Plasma [2345-7] 177 mg/dL N Blood chemistry[[id number]]? Glucose [Mass/volume] in Ser um or Plasma [2345-7] 234 mg/dL N Blood chemistry[[id number]]? Glucose [Mass/volume] in Ser um or Plasma [2345-7] 183 mg/dL N Blood chemistry[[id number]]? Glucose [Mass/volume] in Ser um or Plasma [2345-7] 186 mg/dL N Blood chemistry[[id number]]? Glucose [Mass/volume] in Ser um or Plasma [2345-7] 309 mg/dL N Blood chemistry[[id number]]? Glucose [Mass/volume] in Ser um or Plasma [2345-7] 158 mg/dL N Blood chemistry[[id number]]? Glucose [Mass/volume] in Ser um or Plasma [2345-7] 441 mg/dL N Blood chemistry[[id number]]? Glucose [Mass/volume] in Ser um or Plasma [2345-7] 324 mg/dL N Blood chemistry[[id number]]? Glucose [Mass/volume] in Ser um or Plasma [2345-7] 313 mg/dL N Blood chemistry[[id number]]? Glucose [Mass/volume] in Ser um or Plasma [2345-7] 180 mg/dL N Blood chemistry[[id number]]? Glucose [Mass/volume] in Ser um or Plasma [2345-7] 174 mg/dL N Blood chemistry[[id number]]? Glucose [Mass/volume] in Ser um or Plasma [2345-7] 191 mg/dL N Blood chemistry[[id number]]? Glucose [Mass/volume] in Ser um or Plasma [2345-7] 237 mg/dL N Blood chemistry[[id number]]? Glucose [Mass/volume] in Ser um or Plasma [2345-7] 237 mg/dL N Blood chemistry[[id number]]? Glucose [Mass/volume] in Ser um or Plasma [2345-7] 308 mg/dL N Blood chemistry[[id number]]? Glucose [Mass/volume] in Ser um or Plasma [2345-7] 199 mg/dL N Blood chemistry[[id number]]? Glucose [Mass/volume] in Ser um or Plasma [2345-7] 199 mg/dL N Blood chemistry[[id number]]? Glucose [Mass/volume] in Ser um or Plasma [2345-7] 288 mg/dL N Glucose [Mass/volume] in Ser um or Plasma [2345-7] 288 mg/dL N Blood chemistry[[id number]]? Glucose [Mass/volume] in Ser um or Plasma [2345-7] 357 mg/dL N Blood chemistry[[id number]]? Glucose [Mass/volume] in Ser um or Plasma [2345-7] 299 mg/dL N Blood chemistry[[id number]]? Glucose [Mass/volume] in Ser um or Plasma [2345-7] 120 mg/dL N Blood chemistry[[id number]]? Glucose [Mass/volume] in Ser um or Plasma [2345-7] 271 mg/dL N Blood chemistry[[id number]]? Glucose [Mass/volume] in Ser um or Plasma [2345-7] 240 mg/dL N Blood chemistry[[id number]]? Glucose [Mass/volume] in Ser um or Plasma [2345-7] 189 mg/dL N Blood chemistry[[id number]]? Glucose [Mass/volume] in Ser um or Plasma [2345-7] 189 mg/dL N Blood chemistry[[id number]]? Glucose [Mass/volume] in Ser um or Plasma [2345-7] 265 mg/dL N Blood chemistry[[id number]]? Glucose [Mass/volume] in Ser um or Plasma [2345-7] 225 mg/dL N Blood chemistry[[id number]]? Glucose [Mass/volume] in Ser um or Plasma [2345-7] 227 mg/dL N Blood chemistry[[id number]]? Glucose [Mass/volume] in Ser um or Plasma [2345-7] 242 mg/dL N Blood chemistry[[id number]]? Glucose [Mass/volume] in Ser um or Plasma [2345-7] 203 mg/dL N Blood chemistry[[id number]]? Glucose [Mass/volume] in Ser um or Plasma [2345-7] 292 mg/dL N Blood chemistry[[id number]]? Glucose [Mass/volume] in Ser um or Plasma [2345-7] 281 mg/dL N Blood chemistry[[id number]]? Glucose [Mass/volume] in Ser um or Plasma [2345-7] 184 mg/dL N Blood chemistry[[id number]]? Glucose [Mass/volume] in Ser um or Plasma [2345-7] 308 mg/dL N Blood chemistry[[id number]]? Glucose [Mass/volume] in Ser um or Plasma [2345-7] 305 mg/dL N Blood chemistry[[id number]]? Glucose [Mass/volume] in Ser um or Plasma [2345-7] 241 mg/dL N Blood chemistry[[id number]]? Glucose [Mass/volume] in Ser um or Plasma [2345-7] 216 mg/dL N Blood chemistry[[id number]]? Glucose [Mass/volume] in Ser um or Plasma [2345-7] 189 mg/dL N Blood chemistry[[id number]]? Glucose [Mass/volume] in Ser um or Plasma [2345-7] 251 mg/dL N Blood chemistry[[id number]]? Glucose [Mass/volume] in Ser um or Plasma [2345-7] 255 mg/dL N Blood chemistry[[id number]]? Glucose [Mass/volume] in Ser um or Plasma [2345-7] 234 mg/dL N Blood chemistry[[id number]]? Glucose [Mass/volume] in Ser um or Plasma [2345-7] 285 mg/dL N Blood chemistry[[id number]]? Glucose [Mass/volume] in Ser um or Plasma [2345-7] 210 mg/dL N Blood chemistry[[id number]]? Glucose [Mass/volume] in Ser um or Plasma [2345-7] 210 mg/dL N Blood chemistry[[id number]]? Glucose [Mass/volume] in Ser um or Plasma [2345-7] 184 mg/dL N Glucose [Mass/volume] in Ser um or Plasma [2345-7] 184 mg/dL N Blood chemistry[[id number]]? Glucose [Mass/volume] in Ser um or Plasma [2345-7] 300 mg/dL N Blood chemistry[[id number]]? Glucose [Mass/volume] in Ser um or Plasma [2345-7] 299 mg/dL N Glucose [Mass/volume] in Ser um or Plasma [2345-7] 299 mg/dL N Blood chemistry[[id number]]? Glucose [Mass/volume] in Ser um or Plasma [2345-7] 207 mg/dL N Glucose [Mass/volume] in Ser um or Plasma [2345-7] 203 mg/dL N Blood chemistry[[id number]]? Glucose [Mass/volume] in Ser um or Plasma [2345-7] 207 mg/dL N Blood chemistry[[id number]]? Glucose [Mass/volume] in Ser um or Plasma [2345-7] 141 mg/dL N Blood chemistry[[id number]]? Glucose [Mass/volume] in Ser um or Plasma [2345-7] 222 mg/dL N Blood chemistry[[id number]]? Glucose [Mass/volume] in Ser um or Plasma [2345-7] 169 mg/dL N Blood chemistry[[id number]]? Glucose [Mass/volume] in Ser um or Plasma [2345-7] 176 mg/dL N Blood chemistry[[id number]]? Glucose [Mass/volume] in Ser um or Plasma [2345-7] 249 mg/dL N Blood chemistry[[id number]]? Glucose [Mass/volume] in Ser um or Plasma [2345-7] 154 mg/dL N Blood chemistry[[id number]]? Glucose [Mass/volume] in Ser um or Plasma [2345-7] 240 mg/dL N Glucose [Mass/volume] in Ser um or Plasma [2345-7] 240 mg/dL N Blood chemistry[[id number]]? Glucose [Mass/volume] in Ser um or Plasma [2345-7] 275 mg/dL N Blood chemistry[[id number]]? Glucose [Mass/volume] in Ser um or Plasma [2345-7] 194 mg/dL N Blood chemistry[[id number]]? Glucose [Mass/volume] in Ser um or Plasma [2345-7] 231 mg/dL N Glucose [Mass/volume] in Ser um or Plasma [2345-7] 231 mg/dL N Blood chemistry[[id number]]? Glucose [Mass/volume] in Ser um or Plasma [2345-7] 239 mg/dL N Blood chemistry[[id number]]? Glucose [Mass/volume] in Ser um or Plasma [2345-7] 234 mg/dL N Blood chemistry[[id number]]? Glucose [Mass/volume] in Ser um or Plasma [2345-7] 228 mg/dL N Blood chemistry[[id number]]? Glucose [Mass/volume] in Ser um or Plasma [2345-7] 178 mg/dL N Blood chemistry[[id number]]? Glucose [Mass/volume] in Ser um or Plasma [2345-7] 219 mg/dL N Blood chemistry[[id number]]? Glucose [Mass/volume] in Ser um or Plasma [2345-7] 180 mg/dL N Blood chemistry[[id number]]? Glucose [Mass/volume] in Ser um or Plasma [2345-7] 300 mg/dL N Blood chemistry[[id number]]? Glucose [Mass/volume] in Ser um or Plasma [2345-7] 170 mg/dL N Blood chemistry[[id number]]? Glucose [Mass/volume] in Ser um or Plasma [2345-7] 274 mg/dL N Blood chemistry[[id number]]? Glucose [Mass/volume] in Ser um or Plasma [2345-7] 273 mg/dL N Blood chemistry[[id number]]? Glucose [Mass/volume] in Ser um or Plasma [2345-7] 227 mg/dL N Blood chemistry[[id number]]? Glucose [Mass/volume] in Ser um or Plasma [2345-7] 194 mg/dL N Blood chemistry[[id number]]? Glucose [Mass/volume] in Ser um or Plasma [2345-7] 275 mg/dL N Blood chemistry[[id number]]? Glucose [Mass/volume] in Ser um or Plasma [2345-7] 275 mg/dL N Blood chemistry[[id number]]? Glucose [Mass/volume] in Ser um or Plasma [2345-7] 214 mg/dL N Blood chemistry[[id number]]? Glucose [Mass/volume] in Ser um or Plasma [2345-7] 232 mg/dL N Blood chemistry[[id number]]? Glucose [Mass/volume] in Ser um or Plasma [2345-7] 272 mg/dL N Blood chemistry[[id number]]? Glucose [Mass/volume] in Ser um or Plasma [2345-7] 199 mg/dL N Blood chemistry[[id number]]? Glucose [Mass/volume] in Ser um or Plasma [2345-7] 225 mg/dL N Blood chemistry[[id number]]? Glucose [Mass/volume] in Ser um or Plasma [2345-7] 218 mg/dL N Blood chemistry[[id number]]? Glucose [Mass/volume] in Ser um or Plasma [2345-7] 204 mg/dL N Blood chemistry[[id number]]? Glucose [Mass/volume] in Ser um or Plasma [2345-7] 277 mg/dL N Blood chemistry[[id number]]? Glucose [Mass/volume] in Ser um or Plasma [2345-7] 280 mg/dL N Blood chemistry[[id number]]? Glucose [Mass/volume] in Ser um or Plasma [2345-7] 220 mg/dL N Blood chemistry[[id number]]? Glucose [Mass/volume] in Ser um or Plasma [2345-7] 277 mg/dL N Blood chemistry[[id number]]? Glucose [Mass/volume] in Ser um or Plasma [2345-7] 197 mg/dL N Blood chemistry[[id number]]? Glucose [Mass/volume] in Ser um or Plasma [2345-7] 199 mg/dL N Blood chemistry[[id number]]? Glucose [Mass/volume] in Ser um or Plasma [2345-7] 199 mg/dL N Blood chemistry[[id number]]? Glucose [Mass/volume] in Ser um or Plasma [2345-7] 231 mg/dL N Blood chemistry[[id number]]? Glucose [Mass/volume] in Ser um or Plasma [2345-7] 145 mg/dL N Blood chemistry[[id number]]? Glucose [Mass/volume] in Ser um or Plasma [2345-7] 201 mg/dL N Blood chemistry[[id number]]? Glucose [Mass/volume] in Ser um or Plasma [2345-7] 216 mg/dL N Blood chemistry[[id number]]? Glucose [Mass/volume] in Ser um or Plasma [2345-7] 0 mg/dL N Glucose [Mass/volume] in Ser um or Plasma [2345-7] 139 mg/dL N Blood chemistry[[id number]]? Glucose [Mass/volume] in Ser um or Plasma [2345-7] 158 mg/dL N Blood chemistry[[id number]]? Glucose [Mass/volume] in Ser um or Plasma [2345-7] 205 mg/dL N Glucose [Mass/volume] in Ser um or Plasma [2345-7] 205 mg/dL N Blood chemistry[[id number]]? Glucose [Mass/volume] in Ser um or Plasma [2345-7] 275 mg/dL N Blood chemistry[[id number]]? Glucose [Mass/volume] in Ser um or Plasma [2345-7] 156 mg/dL N Blood chemistry[[id number]]? Glucose [Mass/volume] in Ser um or Plasma [2345-7] 156 mg/dL N Glucose [Mass/volume] in Ser um or Plasma [2345-7] 156 mg/dL N Blood chemistry[[id number]]? Glucose [Mass/volume] in Ser um or Plasma [2345-7] 200 mg/dL N Blood chemistry[[id number]]? Glucose [Mass/volume] in Ser um or Plasma [2345-7] 200 mg/dL N Blood chemistry[[id number]]? Glucose [Mass/volume] in Ser um or Plasma [2345-7] 251 mg/dL N Blood chemistry[[id number]]? Glucose [Mass/volume] in Ser um or Plasma [2345-7] 224 mg/dL N Blood chemistry[[id number]]? Glucose [Mass/volume] in Ser um or Plasma [2345-7] 160 mg/dL N Blood chemistry[[id number]]? Glucose [Mass/volume] in Ser um or Plasma [2345-7] 218 mg/dL N Blood chemistry[[id number]]? Glucose [Mass/volume] in Ser um or Plasma [2345-7] 201 mg/dL N Blood chemistry[[id number]]? Glucose [Mass/volume] in Ser um or Plasma [2345-7] 184 mg/dL N Blood chemistry[[id number]]? Glucose [Mass/volume] in Ser um or Plasma [2345-7] 208 mg/dL N Blood chemistry[[id number]]? Glucose [Mass/volume] in Ser um or Plasma [2345-7] 143 mg/dL N Blood chemistry[[id number]]? Glucose [Mass/volume] in Ser um or Plasma [2345-7] 286 mg/dL N Blood chemistry[[id number]]? Glucose [Mass/volume] in Ser um or Plasma [2345-7] 192 mg/dL N Glucose [Mass/volume] in Ser um or Plasma [2345-7] 192 mg/dL N Blood chemistry[[id number]]? Glucose [Mass/volume] in Ser um or Plasma [2345-7] 155 mg/dL N Blood chemistry[[id number]]? Glucose [Mass/volume] in Ser um or Plasma [2345-7] 185 mg/dL N Blood chemistry[[id number]]? Glucose [Mass/volume] in Ser um or Plasma [2345-7] 227 mg/dL N Blood chemistry[[id number]]? Glucose [Mass/volume] in Ser um or Plasma [2345-7] 262 mg/dL N Blood chemistry[[id number]]? Glucose [Mass/volume] in Ser um or Plasma [2345-7] 224 mg/dL N Blood chemistry[[id number]]? Glucose [Mass/volume] in Ser um or Plasma [2345-7] 256 mg/dL N Blood chemistry[[id number]]? Glucose [Mass/volume] in Ser um or Plasma [2345-7] 150 mg/dL N Blood chemistry[[id number]]? Glucose [Mass/volume] in Ser um or Plasma [2345-7] 150 mg/dL N Blood chemistry[[id number]]? Glucose [Mass/volume] in Ser um or Plasma [2345-7] 249 mg/dL N Blood chemistry[[id number]]? Glucose [Mass/volume] in Ser um or Plasma [2345-7] 195 mg/dL N Blood chemistry[[id number]]? Glucose [Mass/volume] in Ser um or Plasma [2345-7] 233 mg/dL N Blood chemistry[[id number]]? Glucose [Mass/volume] in Ser um or Plasma [2345-7] 284 mg/dL N Blood chemistry[[id number]]? Glucose [Mass/volume] in Ser um or Plasma [2345-7] 284 mg/dL N Blood chemistry[[id number]]? Glucose [Mass/volume] in Ser um or Plasma [2345-7] 253 mg/dL N Blood chemistry[[id number]]? Glucose [Mass/volume] in Ser um or Plasma [2345-7] 275 mg/dL N Blood chemistry[[id number]]? Glucose [Mass/volume] in Ser um or Plasma [2345-7] 275 mg/dL N Blood chemistry[[id number]]? Glucose [Mass/volume] in Ser um or Plasma [2345-7] 241 mg/dL N Blood chemistry[[id number]]? Glucose [Mass/volume] in Ser um or Plasma [2345-7] 233 mg/dL N Blood chemistry[[id number]]? Glucose [Mass/volume] in Ser um or Plasma [2345-7] 265 mg/dL N Blood chemistry[[id number]]? Glucose [Mass/volume] in Ser um or Plasma [2345-7] 265 mg/dL N Blood chemistry[[id number]]? Glucose [Mass/volume] in Ser um or Plasma [2345-7] 299 mg/dL N Blood chemistry[[id number]]? Glucose [Mass/volume] in Ser um or Plasma [2345-7] 169 mg/dL N Blood chemistry[[id number]]? Glucose [Mass/volume] in Ser um or Plasma [2345-7] 230 mg/dL N Blood chemistry[[id number]]? Glucose [Mass/volume] in Ser um or Plasma [2345-7] 280 mg/dL N Blood chemistry[[id number]]? Glucose [Mass/volume] in Ser um or Plasma [2345-7] 168 mg/dL N Blood chemistry[[id number]]? Glucose [Mass/volume] in Ser um or Plasma [2345-7] 281 mg/dL N Blood chemistry[[id number]]? Glucose [Mass/volume] in Ser um or Plasma [2345-7] 253 mg/dL N Blood chemistry[[id number]]? Glucose [Mass/volume] in Ser um or Plasma [2345-7] 259 mg/dL N Blood chemistry[[id number]]? Glucose [Mass/volume] in Ser um or Plasma [2345-7] 220 mg/dL N Blood chemistry[[id number]]? Glucose [Mass/volume] in Ser um or Plasma [2345-7] 279 mg/dL N Blood chemistry[[id number]]? Glucose [Mass/volume] in Ser um or Plasma [2345-7] 217 mg/dL N Blood chemistry[[id number]]? Glucose [Mass/volume] in Ser um or Plasma [2345-7] 299 mg/dL N Blood chemistry[[id number]]? Glucose [Mass/volume] in Ser um or Plasma [2345-7] 184 mg/dL N Blood chemistry[[id number]]? Glucose [Mass/volume] in Ser um or Plasma [2345-7] 262 mg/dL N Blood chemistry[[id number]]? Glucose [Mass/volume] in Ser um or Plasma [2345-7] 236 mg/dL N Blood chemistry[[id number]]? Glucose [Mass/volume] in Ser um or Plasma [2345-7] 290 mg/dL N Blood chemistry[[id number]]? Glucose [Mass/volume] in Ser um or Plasma [2345-7] 222 mg/dL N Blood chemistry[[id number]]? Glucose [Mass/volume] in Ser um or Plasma [2345-7] 251 mg/dL N Blood chemistry[[id number]]? Glucose [Mass/volume] in Ser um or Plasma [2345-7] 281 mg/dL N Blood chemistry[[id number]]? Glucose [Mass/volume] in Ser um or Plasma [2345-7] 273 mg/dL N Blood chemistry[[id number]]? Glucose [Mass/volume] in Ser um or Plasma [2345-7] 218 mg/dL N Blood chemistry[[id number]]? Glucose [Mass/volume] in Ser um or Plasma [2345-7] 255 mg/dL N Blood chemistry[[id number]]? Glucose [Mass/volume] in Ser um or Plasma [2345-7] 209 mg/dL N Blood chemistry[[id number]]? Glucose [Mass/volume] in Ser um or Plasma [2345-7] 311 mg/dL N Blood chemistry[[id number]]? Glucose [Mass/volume] in Ser um or Plasma [2345-7] 282 mg/dL N Blood chemistry[[id number]]? Glucose [Mass/volume] in Ser um or Plasma [2345-7] 342 mg/dL N Blood chemistry[[id number]]? Glucose [Mass/volume] in Ser um or Plasma [2345-7] 276 mg/dL N Blood chemistry[[id number]]? Glucose [Mass/volume] in Ser um or Plasma [2345-7] 196 mg/dL N Blood chemistry[[id number]]? Glucose [Mass/volume] in Ser um or Plasma [2345-7] 258 mg/dL N Blood chemistry[[id number]]? Glucose [Mass/volume] in Ser um or Plasma [2345-7] 256 mg/dL N Blood chemistry[[id number]]? Glucose [Mass/volume] in Ser um or Plasma [2345-7] 237 mg/dL N Blood chemistry[[id number]]? Glucose [Mass/volume] in Ser um or Plasma [2345-7] 286 mg/dL N Blood chemistry[[id number]]? Glucose [Mass/volume] in Ser um or Plasma [2345-7] 265 mg/dL N Blood chemistry[[id number]]? Glucose [Mass/volume] in Ser um or Plasma [2345-7] 253 mg/dL N Blood chemistry[[id number]]? Glucose [Mass/volume] in Ser um or Plasma [2345-7] 300 mg/dL N Blood chemistry[[id number]]? Glucose [Mass/volume] in Ser um or Plasma [2345-7] 300 mg/dL N Blood chemistry[[id number]]? Glucose [Mass/volume] in Ser um or Plasma [2345-7] 199 mg/dL N Blood chemistry[[id number]]? Glucose [Mass/volume] in Ser um or Plasma [2345-7] 258 mg/dL N Blood chemistry[[id number]]? Glucose [Mass/volume] in Ser um or Plasma [2345-7] 251 mg/dL N Blood chemistry[[id number]]? Glucose [Mass/volume] in Ser um or Plasma [2345-7] 300 mg/dL N Blood chemistry[[id number]]? Glucose [Mass/volume] in Ser um or Plasma [2345-7] 226 mg/dL N Blood chemistry[[id number]]? Glucose [Mass/volume] in Ser um or Plasma [2345-7] 226 mg/dL N Blood chemistry[[id number]]? Glucose [Mass/volume] in Ser um or Plasma [2345-7] 276 mg/dL N Blood chemistry[[id number]]? Glucose [Mass/volume] in Ser um or Plasma [2345-7] 290 mg/dL N Blood chemistry[[id number]]? Glucose [Mass/volume] in Ser um or Plasma [2345-7] 337 mg/dL N Blood chemistry[[id number]]? Glucose [Mass/volume] in Ser um or Plasma [2345-7] 326 mg/dL N Blood chemistry[[id number]]? Glucose [Mass/volume] in Ser um or Plasma [2345-7] 202 mg/dL N Blood chemistry[[id number]]? Glucose [Mass/volume] in Ser um or Plasma [2345-7] 221 mg/dL N Blood chemistry[[id number]]? Glucose [Mass/volume] in Ser um or Plasma [2345-7] 305 mg/dL N Glucose [Mass/volume] in Ser um or Plasma [2345-7] 195 mg/dL N Blood chemistry[[id number]]? Glucose [Mass/volume] in Ser um or Plasma [2345-7] 217 mg/dL N Blood chemistry[[id number]]? Glucose [Mass/volume] in Ser um or Plasma [2345-7] 256 mg/dL N Blood chemistry[[id number]]? Glucose [Mass/volume] in Ser um or Plasma [2345-7] 250 mg/dL N Blood chemistry[[id number]]? Glucose [Mass/volume] in Ser um or Plasma [2345-7] 334 mg/dL N Blood chemistry[[id number]]? Glucose [Mass/volume] in Ser um or Plasma [2345-7] 191 mg/dL N Blood chemistry[[id number]]? Glucose [Mass/volume] in Ser um or Plasma [2345-7] 186 mg/dL N Blood chemistry[[id number]]? Glucose [Mass/volume] in Ser um or Plasma [2345-7] 221 mg/dL N Blood chemistry[[id number]]? Glucose [Mass/volume] in Ser um or Plasma [2345-7] 226 mg/dL N Blood chemistry[[id number]]? Glucose [Mass/volume] in Ser um or Plasma [2345-7] 281 mg/dL N Blood chemistry[[id number]]? Glucose [Mass/volume] in Ser um or Plasma [2345-7] 246 mg/dL N Blood chemistry[[id number]]? Glucose [Mass/volume] in Ser um or Plasma [2345-7] 300 mg/dL N Blood chemistry[[id number]]? Glucose [Mass/volume] in Ser um or Plasma [2345-7] 182 mg/dL N Blood chemistry[[id number]]? Glucose [Mass/volume] in Ser um or Plasma [2345-7] 192 mg/dL N Blood chemistry[[id number]]? Glucose [Mass/volume] in Ser um or Plasma [2345-7] 244 mg/dL N Blood chemistry[[id number]]? Glucose [Mass/volume] in Ser um or Plasma [2345-7] 191 mg/dL N Glucose [Mass/volume] in Ser um or Plasma [2345-7] 191 mg/dL N Blood chemistry[[id number]]? Glucose [Mass/volume] in Ser um or Plasma [2345-7] 216 mg/dL N Blood chemistry[[id number]]? Glucose [Mass/volume] in Ser um or Plasma [2345-7] 306 mg/dL N Blood chemistry[[id number]]? Glucose [Mass/volume] in Ser um or Plasma [2345-7] 253 mg/dL N Blood chemistry[[id number]]? Glucose [Mass/volume] in Ser um or Plasma [2345-7] 294 mg/dL N Blood chemistry[[id number]]? Glucose [Mass/volume] in Ser um or Plasma [2345-7] 399 mg/dL N Blood chemistry[[id number]]? Glucose [Mass/volume] in Ser um or Plasma [2345-7] 300 mg/dL N Blood chemistry[[id number]]? Glucose [Mass/volume] in Ser um or Plasma [2345-7] 266 mg/dL N Blood chemistry[[id number]]? Glucose [Mass/volume] in Ser um or Plasma [2345-7] 174 mg/dL N Blood chemistry[[id number]]? Glucose [Mass/volume] in Ser um or Plasma [2345-7] 254 mg/dL N Blood chemistry[[id number]]? Glucose [Mass/volume] in Ser um or Plasma [2345-7] 258 mg/dL N Blood chemistry[[id number]]? Glucose [Mass/volume] in Ser um or Plasma [2345-7] 295 mg/dL N Blood chemistry[[id number]]? Glucose [Mass/volume] in Ser um or Plasma [2345-7] 292 mg/dL N Blood chemistry[[id number]]? Glucose [Mass/volume] in Ser um or Plasma [2345-7] 221 mg/dL N Blood chemistry[[id number]]? Glucose [Mass/volume] in Ser um or Plasma [2345-7] 293 mg/dL N Blood chemistry[[id number]]? Glucose [Mass/volume] in Ser um or Plasma [2345-7] 355 mg/dL N Blood chemistry[[id number]]? Glucose [Mass/volume] in Ser um or Plasma [2345-7] 263 mg/dL N Blood chemistry[[id number]]? Glucose [Mass/volume] in Ser um or Plasma [2345-7] 290 mg/dL N Blood chemistry[[id number]]? Glucose [Mass/volume] in Ser um or Plasma [2345-7] 253 mg/dL N Blood chemistry[[id number]]? Glucose [Mass/volume] in Ser um or Plasma [2345-7] 313 mg/dL N Blood chemistry[[id number]]? Glucose [Mass/volume] in Ser um or Plasma [2345-7] 297 mg/dL N Blood chemistry[[id number]]? Glucose [Mass/volume] in Ser um or Plasma [2345-7] 214 mg/dL N Blood chemistry[[id number]]? Glucose [Mass/volume] in Ser um or Plasma [2345-7] 271 mg/dL N Blood chemistry[[id number]]? Glucose [Mass/volume] in Ser um or Plasma [2345-7] 232 mg/dL N Blood chemistry[[id number]]? Glucose [Mass/volume] in Ser um or Plasma [2345-7] 271 mg/dL N Blood chemistry[[id number]]? Glucose [Mass/volume] in Ser um or Plasma [2345-7] 210 mg/dL N Blood chemistry[[id number]]? Glucose [Mass/volume] in Ser um or Plasma [2345-7] 238 mg/dL N Blood chemistry[[id number]]? Glucose [Mass/volume] in Ser um or Plasma [2345-7] 266 mg/dL N Blood chemistry[[id number]]? Glucose [Mass/volume] in Ser um or Plasma [2345-7] 300 mg/dL N Blood chemistry[[id number]]? Glucose [Mass/volume] in Ser um or Plasma [2345-7] 345 mg/dL N Blood chemistry[[id number]]? Glucose [Mass/volume] in Ser um or Plasma [2345-7] 278 mg/dL N Blood chemistry[[id number]]? Glucose [Mass/volume] in Ser um or Plasma [2345-7] 265 mg/dL N Blood chemistry[[id number]]? Glucose [Mass/volume] in Ser um or Plasma [2345-7] 225 mg/dL N Blood chemistry[[id number]]? Glucose [Mass/volume] in Ser um or Plasma [2345-7] 295 mg/dL N Blood chemistry[[id number]]? Glucose [Mass/volume] in Ser um or Plasma [2345-7] 225 mg/dL N Blood chemistry[[id number]]? Glucose [Mass/volume] in Ser um or Plasma [2345-7] 321 mg/dL N Blood chemistry[[id number]]? Glucose [Mass/volume] in Ser um or Plasma [2345-7] 218 mg/dL N Blood chemistry[[id number]]? Glucose [Mass/volume] in Ser um or Plasma [2345-7] 200 mg/dL N Blood chemistry[[id number]]? Glucose [Mass/volume] in Ser um or Plasma [2345-7] 294 mg/dL N Blood chemistry[[id number]]? Glucose [Mass/volume] in Ser um or Plasma [2345-7] 315 mg/dL N Blood chemistry[[id number]]? Glucose [Mass/volume] in Ser um or Plasma [2345-7] 226 mg/dL N Blood chemistry[[id number]]? Glucose [Mass/volume] in Ser um or Plasma [2345-7] 300 mg/dL N Glucose [Mass/volume] in Ser um or Plasma [2345-7] 375 mg/dL N Blood chemistry[[id number]]? Glucose [Mass/volume] in Ser um or Plasma [2345-7] 205 mg/dL N Blood chemistry[[id number]]? Glucose [Mass/volume] in Ser um or Plasma [2345-7] 170 mg/dL N Blood chemistry[[id number]]? Glucose [Mass/volume] in Ser um or Plasma [2345-7] 256 mg/dL N Blood chemistry[[id number]]? Glucose [Mass/volume] in Ser um or Plasma [2345-7] 461 mg/dL N Blood chemistry[[id number]]? Glucose [Mass/volume] in Ser um or Plasma [2345-7] 203 mg/dL N Blood chemistry[[id number]]? Glucose [Mass/volume] in Ser um or Plasma [2345-7] 220 mg/dL N Blood chemistry[[id number]]? Glucose [Mass/volume] in Ser um or Plasma [2345-7] 250 mg/dL N Blood chemistry[[id number]]? Glucose [Mass/volume] in Ser um or Plasma [2345-7] 247 mg/dL N Blood chemistry[[id number]]? Glucose [Mass/volume] in Ser um or Plasma [2345-7] 174 mg/dL N Blood chemistry[[id number]]? Glucose [Mass/volume] in Ser um or Plasma [2345-7] 246 mg/dL N Blood chemistry[[id number]]? Glucose [Mass/volume] in Ser um or Plasma [2345-7] 192 mg/dL N Blood chemistry[[id number]]? Glucose [Mass/volume] in Ser um or Plasma [2345-7] 199 mg/dL N Blood chemistry[[id number]]? Glucose [Mass/volume] in Ser um or Plasma [2345-7] 206 mg/dL N Blood chemistry[[id number]]? Glucose [Mass/volume] in Ser um or Plasma [2345-7] 288 mg/dL N Blood chemistry[[id number]]? Glucose [Mass/volume] in Ser um or Plasma [2345-7] 222 mg/dL N Blood chemistry[[id number]]? Glucose [Mass/volume] in Ser um or Plasma [2345-7] 180 mg/dL N Glucose [Mass/volume] in Ser um or Plasma [2345-7] 180 mg/dL N Blood chemistry[[id number]]? Glucose [Mass/volume] in Ser um or Plasma [2345-7] 273 mg/dL N Blood chemistry[[id number]]? Glucose [Mass/volume] in Ser um or Plasma [2345-7] 340 mg/dL N Blood chemistry[[id number]]? Glucose [Mass/volume] in Ser um or Plasma [2345-7] 218 mg/dL N Blood chemistry[[id number]]? Glucose [Mass/volume] in Ser um or Plasma [2345-7] 387 mg/dL N Blood chemistry[[id number]]? Glucose [Mass/volume] in Ser um or Plasma [2345-7] 387 mg/dL N Blood chemistry[[id number]]? Glucose [Mass/volume] in Ser um or Plasma [2345-7] 226 mg/dL N Blood chemistry[[id number]]? Glucose [Mass/volume] in Ser um or Plasma [2345-7] 269 mg/dL N Blood chemistry[[id number]]? Glucose [Mass/volume] in Ser um or Plasma [2345-7] 187 mg/dL N Blood chemistry[[id number]]? Glucose [Mass/volume] in Ser um or Plasma [2345-7] 314 mg/dL N Blood chemistry[[id number]]? Glucose [Mass/volume] in Ser um or Plasma [2345-7] 314 mg/dL N Blood chemistry[[id number]]? Glucose [Mass/volume] in Ser um or Plasma [2345-7] 221 mg/dL N Blood chemistry[[id number]]? Glucose [Mass/volume] in Ser um or Plasma [2345-7] 204 mg/dL N Blood chemistry[[id number]]? Glucose [Mass/volume] in Ser um or Plasma [2345-7] 254 mg/dL N Blood chemistry[[id number]]? Glucose [Mass/volume] in Ser um or Plasma [2345-7] 256 mg/dL N Glucose [Mass/volume] in Ser um or Plasma [2345-7] 256 mg/dL N Blood chemistry[[id number]]? Glucose [Mass/volume] in Ser um or Plasma [2345-7] 381 mg/dL N Blood chemistry[[id number]]? Glucose [Mass/volume] in Ser um or Plasma [2345-7] 381 mg/dL N Blood chemistry[[id number]]? Glucose [Mass/volume] in Ser um or Plasma [2345-7] 227 mg/dL N Blood chemistry[[id number]]? Glucose [Mass/volume] in Ser um or Plasma [2345-7] 286 mg/dL N Blood chemistry[[id number]]? Glucose [Mass/volume] in Ser um or Plasma [2345-7] 225 mg/dL N Blood chemistry[[id number]]? Glucose [Mass/volume] in Ser um or Plasma [2345-7] 205 mg/dL N Glucose [Mass/volume] in Ser um or Plasma [2345-7] 205 mg/dL N Blood chemistry[[id number]]? Glucose [Mass/volume] in Ser um or Plasma [2345-7] 315 mg/dL N Glucose [Mass/volume] in Ser um or Plasma [2345-7] 315 mg/dL N Blood chemistry[[id number]]? Glucose [Mass/volume] in Ser um or Plasma [2345-7] 287 mg/dL N Blood chemistry[[id number]]? Glucose [Mass/volume] in Ser um or Plasma [2345-7] 287 mg/dL N Blood chemistry[[id number]]? Glucose [Mass/volume] in Ser um or Plasma [2345-7] 343 mg/dL N Blood chemistry[[id number]]? Glucose [Mass/volume] in Ser um or Plasma [2345-7] 225 mg/dL N Blood chemistry[[id number]]? Glucose [Mass/volume] in Ser um or Plasma [2345-7] 169 mg/dL N Tuberculosis reaction wheal[ 87268-1]? Tuberculosis reaction wheal [82918-4] 0 mm NEG Blood chemistry[[id number]]? Glucose [Mass/volume] in Ser um or Plasma [2345-7] 285 mg/dL N Blood chemistry[[id number]]? Glucose [Mass/volume] in Ser um or Plasma [2345-7] 322 mg/dL N Blood chemistry[[id number]]? Glucose [Mass/volume] in Ser um or Plasma [2345-7] 182 mg/dL N Blood chemistry[[id number]]? Glucose [Mass/volume] in Ser um or Plasma [2345-7] 286 mg/dL N Blood chemistry[[id number]]? Glucose [Mass/volume] in Ser um or Plasma [2345-7] 247 mg/dL N Blood chemistry[[id number]]? Glucose [Mass/volume] in Ser um or Plasma [2345-7] 218 mg/dL N Blood chemistry[[id number]]? Glucose [Mass/volume] in Ser um or Plasma [2345-7] 218 mg/dL N Tuberculosis reaction wheal[ 98424-9]? Tuberculosis reaction wheal [76481-9] 0 mm NEG Blood chemistry[[id number]]? Glucose [Mass/volume] in Ser um or Plasma [2345-7] 216 mg/dL N Glucose [Mass/volume] in Ser um or Plasma [2345-7] 216 mg/dL N Blood chemistry[[id number]]? Glucose [Mass/volume] in Ser um or Plasma [2345-7] 267 mg/dL N Blood chemistry[[id number]]? Glucose [Mass/volume] in Ser um or Plasma [2345-7] 299 mg/dL N Blood chemistry[[id number]]? Glucose [Mass/volume] in Ser um or Plasma [2345-7] 337 mg/dL N Allergies, adverse reactions, alerts No known allergies and adverse reactions Medications Medication Instructions Route Dosage Frequency Start Date Stop Date Indications Status Advair Diskus (fluticasone propion-salmete rol) 100-50 mcg/dose blister with device (Advair Diskus (fluticasone propion-salmete rol)) 1 puff, inhalation, Twice A Day inhalatio n 1.0 12.0 h 10/06 Active albuterol sulfate 90 mcg/actuation HFA aerosol inhaler (albuterol sulfate) 2 puffs, inhalation, As Needed, PRN Q 4 hrs. SOB inhalatio n 1.0 1.0 d 10/06 Active cholecalciferol (vitamin D3) 25 mcg (1,000 unit) tablet (cholecalcifero l (vitamin D3)) 1 tab, oral, Once A Day oral 1.0 1.0 d 10/06 Active coenzyme Q10 30 mg capsule (coenzyme Q10) 1, oral, Once A Day oral 1.0 1.0 d 10/06 Active cyanocobalamin (vitamin B-12) 1,000 mcg tablet (cyanocobalamin (vitamin B-12)) 1 tab, oral, Once A Day oral 1.0 1.0 d 10/06 Active Daily-Marylou (with folic acid) (multivitamin with folic acid) 400 mcg tablet (Daily-Marylou (with folic acid) (multivitamin with folic acid)) 1 tab, oral, Once A Day oral 1.0 1.0 d 10/06 Active finasteride 5 mg tablet (finasteride) 1 tab, oral, Once A Day oral 1.0 1.0 d 10/06 Benign prostatic hyperplasia with lower urinary tract symptoms Active furosemide 20 mg tablet (furosemide) 1 tab, oral, As Needed, PRN BID Edema oral 1.0 1.0 d 10/06 Active gabapentin 400 mg capsule (gabapentin) 1, oral, Three Times A Day oral 1.0 8.0 h 10/06 Active galantamine 4 mg tablet (galantamine) 1 tab, oral, Twice A Day oral 1.0 12.0 h 10/06 Active hydrocodone-delphine taminophen 7.5-325 mg tablet (hydrocodone-ac etaminophen) 1 tab, oral, As Needed, Q 4 hours PRN pain oral 1.0 1.0 d 10/06 Active insulin glargine-yfgn 100 unit/mL (3 mL) insulin pen (insulin glargine-yfgn) 12 units, subcutaneous, Once A Morning subcutane ous 1.0 10/06 Type 2 diabetes mellitus with diabetic chronic kidney disease Active insulin lispro 100 unit/mL insulin pen (insulin lispro) Per Sliding Scale, subcutaneous, Before Meals, If [...] Blood Sugar is greater than 450, call MD. subcutane ous 1.0 10/06 Type 2 diabetes mellitus with diabetic chronic kidney disease Active Iron (ferrous sulfate) (ferrous sulfate) 325 mg (65 mg iron) tablet (Iron (ferrous sulfate) (ferrous sulfate)) 1 tab, oral, Twice A Day oral 1.0 12.0 h 10/06 Active melatonin 1 mg tablet (melatonin) 1 tab, oral, At Bedtime oral 1.0 10/06 Active metformin 500 mg tablet extended release 24 hr (metformin) 1 tab, oral, Once A Day oral 1.0 1.0 d 10/06 Type 2 diabetes mellitus with diabetic chronic kidney disease Active methocarbamol 750 mg tablet (methocarbamol) 1 tab, oral, Every 6 Hours oral 1.0 6.0 h 10/06 Active metoprolol tartrate 100 mg tablet (metoprolol tartrate) 1 tab, oral, Twice A Day oral 1.0 12.0 h 10/06 Hypertensive chronic kidney disease with stage 1 through stage 4 chronic kidney disease, or unspecified chronic kidney disease Active mometasone 50 mcg/actuation spray,non-aeros ol (mometasone) 1 spray each nare, nasal, Twice A Day nasal 1.0 12.0 h 09/22 Active pantoprazole 40 mg tablet,delayed release (DR/EC) (pantoprazole) 1 tab, oral, Once A Day oral 1.0 1.0 d 10/06 Active rosuvastatin 40 mg tablet (rosuvastatin) 1 tab, oral, At Bedtime oral 1.0 10/06 Active tamsulosin 0.4 mg capsule (tamsulosin) 1 tab, oral, At Bedtime oral 1.0 10/06 Benign prostatic hyperplasia with lower urinary tract symptoms Active Advair Diskus (fluticasone propion-salmete rol) 100-50 mcg/dose blister with device (Advair Diskus (fluticasone propion-salmete rol)) 1 puff, inhalation, Twice A Day inhalatio n 1.0 12.0 h 08/23 Active albuterol sulfate 90 mcg/actuation HFA aerosol inhaler (albuterol sulfate) 2 puffs, inhalation, As Needed, PRN Q 4 hrs. SOB inhalatio n 1.0 1.0 d 08/23 Active Aplisol (tuberculin ppd) 5 tub. unit /0.1 mL solution (Aplisol (tuberculin ppd)) 0.1ml, intradermal, Once - One Time, Administer on day shift intraderm al 1.0 08/23 Active cefepime 100 gram recon soln (cefepime) 2000 MG, intravenous, Every 12 Hours intraveno us 1.0 12.0 h 08/23 Active cholecalciferol (vitamin D3) 25 mcg (1,000 unit) tablet (cholecalcifero l (vitamin D3)) 1 tab, oral, Once A Day oral 1.0 1.0 d 08/23 Active coenzyme Q10 30 mg capsule (coenzyme Q10) 1, oral, Once A Day oral 1.0 1.0 d 08/23 Active cranberry 450 mg tablet (cranberry) 1, oral, Once A Day oral 1.0 1.0 d 08/23 Active cyanocobalamin (vitamin B-12) 1,000 mcg tablet (cyanocobalamin (vitamin B-12)) 1 tab, oral, Once A Day oral 1.0 1.0 d 08/23 Active Daily Multi-Vitamin (multivitamin) - tablet (Daily Multi-Vitamin (multivitamin)) 1 tab, oral, Once A Day oral 1.0 1.0 d 08/23 Active Daily Multi-Vitamin (multivitamin) - tablet (Daily Multi-Vitamin (multivitamin)) 1 tab, oral, Once A Day oral 1.0 1.0 d 08/24 Active finasteride 5 mg tablet (finasteride) 1 tab, oral, Once A Day oral 1.0 1.0 d 08/23 Active Flonase Allergy Relief (fluticasone propionate) 50 mcg/actuation spray,suspensio n (Flonase Allergy Relief (fluticasone propionate)) 2 sprays, nasal, Once A Day, each nare nasal 1.0 1.0 d 08/23 Active Flonase Allergy Relief (fluticasone propionate) 50 mcg/actuation spray,suspensio n (Flonase Allergy Relief (fluticasone propionate)) 2 sprays, nasal, Once A Day, each nare nasal 1.0 1.0 d 08/24 Active furosemide 20 mg tablet (furosemide) 1 tab, oral, As Needed, PRN BID Edema oral 1.0 1.0 d 08/23 Active gabapentin 400 mg capsule (gabapentin) 1, oral, Three Times A Day oral 1.0 8.0 h 08/23 Active gabapentin 400 mg capsule (gabapentin) 1, oral, Three Times A Day oral 1.0 8.0 h 08/24 Active galantamine 4 mg tablet (galantamine) 1 tab, oral, Twice A Day oral 1.0 12.0 h 08/234 Active galantamine 4 mg tablet (galantamine) 1 tab, oral, Twice A Day oral 1.0 12.0 h 08/24 Active Heparin LockFlush(Porci ne)(PF) (heparin, porcine (pf)) 100 unit/mL syringe (Heparin LockFlush(Porci ne)(PF) (heparin, porcine (pf))) 5ml, intravenous, Every Shift, Flush with Heparinized NS after each use intraveno us 1.0 8.0 h 08/17 Active Heparin LockFlush(Porci ne)(PF) (heparin, porcine (pf)) 100 unit/mL syringe (Heparin LockFlush(Porci ne)(PF) (heparin, porcine (pf))) 5ml, intravenous, Every Shift, Flush every shift with NS then Heparin until PICC line is removed intraveno us 1.0 8.0 h 08/19 Active Humalog U-100 Insulin (insulin lispro) 100 unit/mL solution (Humalog U-100 Insulin (insulin lispro)) Per Sliding Scale, subcutaneous, Before Meals, If [...] Blood Sugar is greater than 450, call MD. rajan goldman 1.0 08/23 Active Humalog U-100 Insulin (insulin lispro) 100 unit/mL solution (Humalog U-100 Insulin (insulin lispro)) Per Sliding Scale, subcutaneous, Before Meals, If [...] Blood Sugar is greater than 450, call MD. subcutane ous 1.0 08/24 Type 2 diabetes mellitus with diabetic chronic kidney disease Active hydrocodone-delphine taminophen 7.5-325 mg tablet (hydrocodone-ac etaminophen) 1 tab, oral, As Needed, Q 4 hours PRN pain oral 1.0 1.0 d 08/23 Active Hydrogel (gel base no.41 (bulk)) - gel (Hydrogel (gel base no.41 (bulk))) small amount, miscellaneous , Once A Day Give 3 Days Hold 1 Day, Sacral area- Cleanse with wound cleanser, apply skin prep to lori- wound. Apply hydrogel to wound bed. Cover with bordered dressing Q 3 days and PRN 1.0 1.0 d 08/15 Active insulin glargine-yfgn 100 unit/mL (3 mL) insulin pen (insulin glargine-yfgn) 12 units, subcutaneous, Once A Morning subcutane ous 1.0 08/23 Active Iron (ferrous sulfate) (ferrous sulfate) 325 mg (65 mg iron) tablet (Iron (ferrous sulfate) (ferrous sulfate)) 1 tab, oral, Twice A Day oral 1.0 12.0 h 08/23 Active levofloxacin 750 mg tablet (levofloxacin) 1 tab, oral, Once A Day, X 14 daysDx of Wound infection oral 1.0 1.0 d 08/23 Active levofloxacin 750 mg tablet (levofloxacin) 1 tab, oral, Once A Day, X 14 daysDx of Wound infection oral 1.0 1.0 d 08/24 Active levofloxacin 750 mg tablet (levofloxacin) 1 tab, oral, Once A Day, X 14 daysDx of Wound infection oral 1.0 1.0 d 08/25 Active melatonin 1 mg tablet (melatonin) 1 tab, oral, At Bedtime oral 1.0 08/23 Active metformin 500 mg tablet extended release 24 hr (metformin) 1 tab, oral, Once A Day oral 1.0 1.0 d 08/23 Active methocarbamol 750 mg tablet (methocarbamol) 1 tab, oral, Every 6 Hours oral 1.0 6.0 h 08/23 Active metoprolol tartrate 100 mg tablet (metoprolol tartrate) 1 tab, oral, Twice A Day oral 1.0 12.0 h 08/23 Active micafungin 100 mg recon soln (micafungin) 1 infusion, intravenous, Once A Day intraveno us 1.0 1.0 d 08/23 Active mometasone 50 mcg/actuation spray,non-aeros ol (mometasone) 1 spray each nare, nasal, Twice A Day nasal 1.0 12.0 h 08/23 Active mometasone 50 mcg/actuation spray,non-aeros ol (mometasone) 1 spray each nare, nasal, Twice A Day nasal 1.0 12.0 h 08/24 Active Normal Saline Flush (sodium chloride 0.9 %) - syringe (Normal Saline Flush (sodium chloride 0.9 %)) 3ml, injection, Every Shift, Flush IV with 3ml NS before and after use 1.0 8.0 h 08/17 Active Normal Saline Flush (sodium chloride 0.9 %) - syringe (Normal Saline Flush (sodium chloride 0.9 %)) 10 ml, injection, As Needed, Flush before and after use 1.0 1.0 d 08/18 Active Normal Saline Flush (sodium chloride 0.9 %) - syringe (Normal Saline Flush (sodium chloride 0.9 %)) 10 ml, injection, Every Shift, Flush before and after use 1.0 8.0 h 08/19 Active pantoprazole 40 mg tablet,delayed release (DR/EC) (pantoprazole) 1 tab, oral, Once A Day oral 1.0 1.0 d 08/23 Active rosuvastatin 40 mg tablet (rosuvastatin) 1 tab, oral, At Bedtime oral 1.0 08/23 Active tamsulosin 0.4 mg capsule (tamsulosin) 1 tab, oral, At Bedtime oral 1.0 08/23 Active levofloxacin 750 mg tablet (levofloxacin) 1 tab, oral, Once A Day, X 14 daysDx of Wound infection oral 1.0 1.0 d 10/05 Active albuterol sulfate 90 mcg/actuation HFA aerosol inhaler (albuterol sulfate) 2 puffs, inhalation, Every 4 Hours - PRN, SOB OR WHEEZING inhalatio n 1.0 4.0 h 11/19 Active atorvastatin 80 mg tablet (atorvastatin) 1 tab, oral, Once A Day, TI for rosuvastatin oral 1.0 1.0 d 11/19 Active cholecalciferol (vitamin D3) 25 mcg (1,000 unit) tablet (cholecalcifero l (vitamin D3)) 1 tab, oral, Once A Day oral 1.0 1.0 d 11/19 Active cyanocobalamin (vitamin B-12) 1,000 mcg tablet (cyanocobalamin (vitamin B-12)) 1 tab, oral, Once A Day oral 1.0 1.0 d 11/19 Active digoxin 125 mcg (0.125 mg) tablet (digoxin) 1 tab, oral, Once A Day oral 1.0 1.0 d 11/19 Active donepezil 5 mg tablet (donepezil) 1 tab, oral, Once A Day, TI for galantamine oral 1.0 1.0 d 11/19 Active ertapenem 1 gram recon soln (ertapenem) 1 gram, intravenous, Once A Day, 5 day auto stop per TI intraveno us 1.0 1.0 d 10/18 Active ferrous sulfate 325 mg (65 mg iron) tablet (ferrous sulfate) 1 tab, oral, Once A Day Every Other Day, Dosing per TI oral 1.0 1.0 d 11/19 Active finasteride 5 mg tablet (finasteride) 1 tab, oral, Once A Day oral 1.0 1.0 d 11/19 Active fluticasone propion-salmete rol 100-50 mcg/dose blister with device (fluticasone propion-salmete rol) 1 inhalation, inhalation, Twice A Day, rinse mouth with water and spit after use inhalatio n 1.0 12.0 h 11/19 Active fluticasone propionate 50 mcg/actuation spray,suspensio n (fluticasone propionate) 1 spray both nostrils, nasal, Once A Day, TI for mometasone nasal 1.0 1.0 d 11/19 Active furosemide 20 mg tablet (furosemide) 1 tab, oral, Twice A Day - PRN, for edema oral 1.0 12.0 h 11/19 Active hydrocodone-delphine taminophen 7.5-325 mg tablet (hydrocodone-ac etaminophen) 1 tab, oral, Every 4 Hours - PRN, for painexempt R52 oral 1.0 4.0 h 11/19 Active insulin glargine-yfgn 100 unit/mL (3 mL) insulin pen (insulin glargine-yfgn) 12 units, subcutaneous, Once A Day subcutane ous 1.0 1.0 d 11/19 Active insulin lispro 100 unit/mL insulin pen [...] Sugar is greater than 400, call MD. subcutane ous 1.0 11/19 Active melatonin 1 mg tablet (melatonin) 1 tab, oral, At Bedtime oral 1.0 11/19 Active metformin 500 mg tablet (metformin) 1 tab, oral, Once A Day, 8am oral 1.0 1.0 d 11/19 Active metoprolol tartrate 25 mg tablet (metoprolol tartrate) 1 tab, oral, Twice A Day oral 1.0 12.0 h 11/19 Active omeprazole 20 mg capsule,delayed release(DR/EC) (omeprazole) 1 cap, oral, Once A Day, TI for pantoprazole oral 1.0 1.0 d 11/19 Active tamsulosin 0.4 mg capsule (tamsulosin) 1 cap, oral, At Bedtime oral 1.0 11/19 Active Thera-M (pqvpnctu-dqj-a dennise fum-folic ac) 19 mg iron- 400 mcg tablet (Thera-M (jxrtqlhh-jqs-n dennise fum-folic ac)) 1 tab, oral, Once A Day, TI for MVI with folic acid oral 1.0 1.0 d 11/19 Active Tab-A-Marylou Multivitamin w-iron (multivitamin-i dennise-folic acid) 18-400 mg-mcg tablet (Tab-A-Marylou Multivitamin w-iron (multivitamin-i dennise-folic acid)) 1 tab, oral, Once A Day, TI for MVI with folic acid oral 1.0 1.0 d 10/14 Active Gemini-Tussin DM (dextromethorph an-guaifenesin) 10-100 mg/5 mL liquid (Gemini-Tussin DM (dextromethorph an-guaifenesin) ) 1-2 tsp, oral, Every 6 Hours - PRN oral 1.0 6.0 h 11/19 Active Acidophilus (lactobacillus acidophilus) - capsule (Acidophilus (lactobacillus acidophilus)) 1 cap, oral, Once A Day oral 1.0 1.0 d 11/14 Active Lactobacillus acidophilus 500 million cell capsule (Lactobacillus acidophilus) 1 cap, oral, Once A Day oral 1.0 1.0 d 11/14 Active Acidophilus (lactobacillus acidophilus) - capsule (Acidophilus (lactobacillus acidophilus)) 1 cap, oral, Once A Day oral 1.0 1.0 d 11/08 Active ertapenem 1 gram recon soln (ertapenem) 1 gram, intravenous, Once A Day, 5 day auto stop per TI intraveno us 1.0 1.0 d 11/18 Active Lactobacillus acidophilus 500 million cell capsule (Lactobacillus acidophilus) 1 cap, oral, Once A Day oral 1.0 1.0 d 11/18 Active Vital Signs Date Vital Result Comment 09/13/2024 08:35 PM Heart Rate 110 /min Blood Pressure Systolic 102 mm[Hg] Blood Pressure Diastolic 62 mm[Hg] 09/13/2024 11:09 AM Heart Rate 116 /min Blood Pressure Systolic 98 mm[Hg] Blood Pressure Diastolic 48 mm[Hg] 09/12/2024 08:19 PM Heart Rate 94 /min Blood Pressure Systolic 134 mm[Hg] Blood Pressure Diastolic 82 mm[Hg] 09/12/2024 10:36 AM Heart Rate 102 /min Blood Pressure Systolic 125 mm[Hg] Blood Pressure Diastolic 81 mm[Hg] 09/11/2024 09:09 PM Heart Rate 86 /min Blood Pressure Systolic 132 mm[Hg] Blood Pressure Diastolic 72 mm[Hg] 09/11/2024 10:01 AM Heart Rate 100 /min Blood Pressure Systolic 120 mm[Hg] Blood Pressure Diastolic 78 mm[Hg] 09/10/2024 09:55 AM Heart Rate 104 /min Blood Pressure Systolic 117 mm[Hg] Blood Pressure Diastolic 85 mm[Hg] 09/09/2024 08:59 PM Heart Rate 88 /min Blood Pressure Systolic 124 mm[Hg] Blood Pressure Diastolic 71 mm[Hg] 09/09/2024 10:29 AM Heart Rate 76 /min Blood Pressure Systolic 118 mm[Hg] Blood Pressure Diastolic 65 mm[Hg] 09/08/2024 08:57 PM Heart Rate 89 /min Blood Pressure Systolic 128 mm[Hg] Blood Pressure Diastolic 71 mm[Hg] 09/08/2024 07:39 AM Temperature 97.9 [degF] Oxygen Saturation 95 % Respiratory Rate 20 /min Body Weight 200.8 [lb_av] Body Mass Index 30.53 kg/m2 08/30/2024 10:42 AM Body Weight 203.8 [lb_av] Body Mass Index 30.98 kg/m2 08/23/2024 11:33 AM Body Weight 200.8 [lb_av] Body Mass Index 30.53 kg/m2 08/16/2024 10:38 AM Temperature 97.3 [degF] Oxygen Saturation 94 % Respiratory Rate 18 /min 08/16/2024 09:36 AM Body Weight 198.8 [lb_av] Body Mass Index 30.22 kg/m2 08/14/2024 02:41 PM Temperature 97.6 [degF] Oxygen Saturation 97 % Respiratory Rate 16 /min 08/11/2024 10:29 AM Temperature 98.3 [degF] Oxygen Saturation 97 % Respiratory Rate 18 /min 08/09/2024 10:13 AM Body Weight 195.8 [lb_av] Body Mass Index 29.77 kg/m2 08/07/2024 06:40 PM Temperature 98 [degF] Oxygen Saturation 99 % Respiratory Rate 14 /min 08/01/2024 12:23 PM Temperature 98.5 [degF] Oxygen Saturation 96 % Respiratory Rate 18 /min 07/30/2024 02:25 PM Temperature 97.5 [degF] Oxygen Saturation 98 % Respiratory Rate 16 /min 07/28/2024 10:59 PM Temperature 98.3 [degF] Oxygen Saturation 96 % Respiratory Rate 17 /min 07/27/2024 12:29 PM Temperature 98.7 [degF] 07/27/2024 03:06 AM Temperature 97.1 [degF] 07/24/2024 10:56 AM Oxygen Saturation 97 % Respiratory Rate 18 /min 07/20/2024 01:46 AM Oxygen Saturation 96 % Respiratory Rate 16 /min 07/08/2024 09:27 PM Body Height 68 [in_us] 07/08/2024 07:20 PM Body Weight 185 [lb_av] Body Mass Index 28.13 kg/m2 09/14/2024 10:02 AM Heart Rate 102 /min Blood Pressure Systolic 119 mm[Hg] Blood Pressure Diastolic 86 mm[Hg] 09/14/2024 09:36 PM Heart Rate 88 /min Blood Pressure Systolic 122 mm[Hg] Blood Pressure Diastolic 76 mm[Hg] 09/16/2024 09:49 AM Heart Rate 90 /min Blood Pressure Systolic 89 mm[Hg] Blood Pressure Diastolic 58 mm[Hg] 09/15/2024 08:28 PM Heart Rate 81 /min Blood Pressure Systolic 120 mm[Hg] Blood Pressure Diastolic 74 mm[Hg] 09/15/2024 10:37 AM Heart Rate 84 /min Blood Pressure Systolic 126 mm[Hg] Blood Pressure Diastolic 78 mm[Hg] 09/17/2024 09:58 AM Heart Rate 116 /min Blood Pressure Systolic 112 mm[Hg] Blood Pressure Diastolic 77 mm[Hg] 09/16/2024 08:45 PM Heart Rate 88 /min Blood Pressure Systolic 102 mm[Hg] Blood Pressure Diastolic 62 mm[Hg] 09/18/2024 09:46 AM Heart Rate 95 /min Blood Pressure Systolic 115 mm[Hg] Blood Pressure Diastolic 74 mm[Hg] 09/17/2024 08:34 PM Heart Rate 102 /min Blood Pressure Systolic 108 mm[Hg] Blood Pressure Diastolic 74 mm[Hg] 09/18/2024 08:47 PM Heart Rate 86 /min Blood Pressure Systolic 110 mm[Hg] Blood Pressure Diastolic 63 mm[Hg] 09/19/2024 09:51 PM Heart Rate 100 /min Blood Pressure Systolic 113 mm[Hg] Blood Pressure Diastolic 73 mm[Hg] 09/19/2024 09:47 AM Heart Rate 78 /min Blood Pressure Systolic 122 mm[Hg] Blood Pressure Diastolic 58 mm[Hg] 09/20/2024 09:30 PM Heart Rate 104 /min Blood Pressure Systolic 88 mm[Hg] Blood Pressure Diastolic 50 mm[Hg] 09/20/2024 09:58 AM Heart Rate 91 /min Blood Pressure Systolic 123 mm[Hg] Blood Pressure Diastolic 55 mm[Hg] 09/21/2024 08:42 PM Heart Rate 98 /min Blood Pressure Systolic 121 mm[Hg] Blood Pressure Diastolic 64 mm[Hg] 09/21/2024 09:41 AM Heart Rate 110 /min Blood Pressure Systolic 106 mm[Hg] Blood Pressure Diastolic 68 mm[Hg] 09/22/2024 09:31 PM Heart Rate 102 /min Blood Pressure Systolic 129 mm[Hg] Blood Pressure Diastolic 70 mm[Hg] 09/22/2024 10:08 AM Heart Rate 112 /min Blood Pressure Systolic 102 mm[Hg] Blood Pressure Diastolic 61 mm[Hg] 09/23/2024 09:00 PM Heart Rate 82 /min Blood Pressure Systolic 113 mm[Hg] Blood Pressure Diastolic 65 mm[Hg] 09/23/2024 10:21 AM Heart Rate 81 /min Blood Pressure Systolic 110 mm[Hg] Blood Pressure Diastolic 60 mm[Hg] 09/24/2024 09:37 AM Heart Rate 78 /min Blood Pressure Systolic 122 mm[Hg] Blood Pressure Diastolic 68 mm[Hg] 09/24/2024 09:47 PM Heart Rate 78 /min Blood Pressure Systolic 127 mm[Hg] Blood Pressure Diastolic 74 mm[Hg] 09/25/2024 09:12 AM Heart Rate 76 /min Blood Pressure Systolic 132 mm[Hg] Blood Pressure Diastolic 78 mm[Hg] 09/26/2024 09:37 AM Heart Rate 78 /min Blood Pressure Systolic 116 mm[Hg] Blood Pressure Diastolic 60 mm[Hg] 09/25/2024 08:36 PM Heart Rate 83 /min Blood Pressure Systolic 99 mm[Hg] Blood Pressure Diastolic 40 mm[Hg] 09/27/2024 09:30 AM Heart Rate 76 /min Blood Pressure Systolic 132 mm[Hg] Blood Pressure Diastolic 74 mm[Hg] 09/26/2024 09:01 PM Blood Pressure Systolic 127 mm[Hg] Blood Pressure Diastolic 69 mm[Hg] 09/28/2024 10:12 AM Heart Rate 99 /min Blood Pressure Systolic 115 mm[Hg] Blood Pressure Diastolic 73 mm[Hg] 09/27/2024 08:48 PM Heart Rate 107 /min Blood Pressure Systolic 126 mm[Hg] Blood Pressure Diastolic 80 mm[Hg] 09/28/2024 09:33 PM Heart Rate 97 /min Blood Pressure Systolic 114 mm[Hg] Blood Pressure Diastolic 76 mm[Hg] 09/29/2024 09:14 PM Heart Rate 88 /min Blood Pressure Systolic 123 mm[Hg] Blood Pressure Diastolic 64 mm[Hg] 09/29/2024 09:58 AM Heart Rate 98 /min Blood Pressure Systolic 117 mm[Hg] Blood Pressure Diastolic 75 mm[Hg] 09/30/2024 10:17 AM Heart Rate 61 /min Blood Pressure Systolic 102 mm[Hg] Blood Pressure Diastolic 67 mm[Hg] 10/01/2024 09:40 AM Heart Rate 77 /min Blood Pressure Systolic 126 mm[Hg] Blood Pressure Diastolic 77 mm[Hg] 09/30/2024 08:07 PM Heart Rate 64 /min Blood Pressure Systolic 110 mm[Hg] Blood Pressure Diastolic 72 mm[Hg] 10/01/2024 08:53 PM Heart Rate 80 /min Blood Pressure Systolic 130 mm[Hg] Blood Pressure Diastolic 76 mm[Hg] 10/02/2024 09:17 AM Heart Rate 84 /min Blood Pressure Systolic 124 mm[Hg] Blood Pressure Diastolic 64 mm[Hg] 10/02/2024 09:04 PM Heart Rate 87 /min Blood Pressure Systolic 145 mm[Hg] Blood Pressure Diastolic 73 mm[Hg] 10/04/2024 09:40 AM Heart Rate 90 /min Blood Pressure Systolic 128 mm[Hg] Blood Pressure Diastolic 62 mm[Hg] 10/03/2024 11:37 PM Heart Rate 88 /min Blood Pressure Systolic 134 mm[Hg] Blood Pressure Diastolic 74 mm[Hg] 10/13/2024 02:50 PM Temperature 95.9 [degF] Oxygen Saturation 98 % Respiratory Rate 18 /min Heart Rate 78 /min Blood Pressure Systolic 130 mm[Hg] Blood Pressure Diastolic 72 mm[Hg] Body Weight 186.8 [lb_av] Body Mass Index 28.4 kg/m2 10/26/2024 10:29 AM Body Weight 180 [lb_av] Body Mass Index 27.37 kg/m2 10/31/2024 09:32 AM Body Weight 175.8 [lb_av] Body Mass Index 26.73 kg/m2 11/18/2024 10:23 AM Oxygen Saturation 98 % 11/18/2024 10:00 AM Temperature 98.2 [degF] Respiratory Rate 17 /min Heart Rate 74 /min Blood Pressure Systolic 128 mm[Hg] Blood Pressure Diastolic 72 mm[Hg] Social History No smoking Hx information available Encounters Type CPT Code Date Location Provider Indication s encounter report 07/08/2024 01:3 5 PM - 10/05/2024 10:15 AM Mike Nelson MD encounter report 07/08/2024 01:3 5 PM - 11/18/2024 10:00 AM Mike Nelson MD Advance Directives Directive Description Verification Date Supporting Document(s) Other Directive
[2024-11-26] MEDS: simethicone 40 mg/0.6 mL Bottle 30mL PO (19:05)
[2024-11-26] MEDS: docusate sodium 100 mg Capsule PO (19:37)
[2024-11-26 19:51] LABS: Glucose Point of Care 158 mg/dL (70-110)
[2024-11-26 21:07] LABS: Glucose Point of Care 191 mg/dL (70-110)
[2024-11-26] MEDS: budesonide 0.5 mg/2 mL Neb INHALATION (21:31)
[2024-11-26] MEDS: tamsulosin 0.4 mg Capsule PO (22:17)
[2024-11-27] VITALS (14 sets, daily range): BP systolic 107–155; BP diastolic 68–77; PULSE 68–108; RESP 14–19; TEMP 36.5–37.7; O2SAT 90–100
[2024-11-27] MEDS: HYDROMORPHONE HCL 0.5 MG/0.5 ML INJ 1 MG IVP ×5 (01:12→19:49)
[2024-11-27] MEDS: piperacillin-tazobactam 3.375 GM in sodium chloride 0.9% (plus) 50 ML IV ×3 (01:12→17:35)
[2024-11-27 04:28] LABS: Basophils # 0.1 10^3/uL (0.0-0.1); Basophils % 0.7 %; Eosinophils # 0.6 10^3/uL (0.0-0.8); Eosinophils % 3.9 %; Hematocrit 37.7 % (37-53); Lymphocytes # 1.7 10^3/uL (0.8-4.8); Lymphocytes % 12.1 %; Mean Corpuscular HGB Conc 30.5 g/dL (30-55); Mean Corpuscular Hemoglobin 27.1 pg (27-33); Mean Corpuscular Volume 88.9 fl (82-101); Mean Platelet Volume 10.2 fL (7.4-10.4); Monocytes # 0.8 10^3/uL (0.2-0.9); Monocytes % 5.4 %; Neutrophils # 11.04 10^3/uL (1.8-7.7); Neutrophils % 77.3 %; Nucleated Red Blood Cells % 0 %; Platelet Count 255 10^3/cmm (157-399); Red Blood Count 4.24 10^6/uL (3.85-5.65); Red Cell Distribution Width 17.6 % (12.1-15.1); White Blood Count 14.26 10^3/uL (3.29-11.43)
[2024-11-27 05:00] LABS: Blood Urea Nitrogen 16 mg/dL (8-23); Calcium 8.6 mg/dL (8.5-10.5); Carbon Dioxide 24 mmol/L (22-29); Chloride 104 mmol/L (98-107); Creatinine Clr Calc Pharmacy 66.5539; Glucose 167 mg/dL (65-115); Lipase 18 U/L (13-60); Magnesium 1.6 mg/dL (1.7-2.3); NT Pro B Type Natriuretic Pept 5482 pg/mL (0-450); Osmolality Calculated 297 mOsm/kg (285-295); Phosphorus 3.4 mg/dL (2.5-4.5); Sodium 141 mmol/L (136-145)
[2024-11-27 05:03] LABS: Anion Gap 16.9 (5-19); Potassium 3.9 mmol/L (3.5-5.1)
[2024-11-27 06:24] LABS: Glucose Point of Care 173 mg/dL (70-110)
[2024-11-27] MEDS: insulin lispro 100 unit/1 mL SUBCUT ×4 (08:19→20:33)
[2024-11-27] MEDS: pantoprazole 40 mg SDV IVP (08:19)
[2024-11-27] MEDS: enoxaparin 40 mg/0.4 mL Syringe SUBCUT (08:19)
[2024-11-27] MEDS: finasteride 5 mg Tablet PO (08:20)
[2024-11-27] MEDS: docusate sodium 100 mg Capsule PO ×2 (08:20→17:35)
[2024-11-27] MEDS: cyanocobalamin 1,000 mcg Tablet 1000 MCG PO (08:20)
[2024-11-27] MEDS: digoxin 125 mcg Tablet PO (08:20)
[2024-11-27] MEDS: donepezil 5 MG Tablet PO (08:20)
[2024-11-27] MEDS: atorvastatin 40 mg Tablet 80 MG PO (08:21)
[2024-11-27] MEDS: linezolid premix 600 MG/300 ML PREMIX 300 MG IV ×2 (08:21→20:33)
[2024-11-27] MEDS: budesonide 0.5 mg/2 mL Neb INHALATION ×2 (08:26→20:19)
--- NOTE | 2024-11-27 11:00 | MRR_ITS ---
PROCEDURE INFORMATION: Exam: MR Lumbar Spine Without and With Contrast Exam date and time: 11/27/2024 11:28 AM Age: 74 years old Clinical indication: Low back pain. Abnormal CT scan suspicious for L3-L4 discitis/osteomyelitis. Pain and abnormal findings; Abnormal xray or scan of thoracolumbar spine; Low back pain; Prior surgery; Surgery date: <1 month; Surgery type: Bilateral nephrostomy tubes; Additional info: Discitis? TECHNIQUE: Imaging protocol: Magnetic resonance imaging of the lumbar spine without and with contrast. Contrast material: MULTIHANCE; Contrast volume: 20 ml; Contrast route: INTRAVENOUS (IV); COMPARISON: CT lumbar spine 11/26/2024 2:42 PM FINDINGS: Bones/joints: Enhancing marrow edema is present in the posterior aspe there is L2-L3 interbody fusion with fixed grade 1 retrolisthesis. Trace anterolisthesis of L4 relative to L3 and L5. ct of the L4 vertebral body. There is extensive enhancement of the L3-L4 disc space, but no significant enhancement of the L3 vertebral marrow. Spinal cord: Grossly normal size and contour of the conus medullaris. No abnormal intradural enhancement. L1-L2: No significant disc bulge or herniation. No severe spinal canal stenosis. No significant neural foraminal narrowing. L2-L3: The retrolisthesis reduces hbzz-he-[id number] ventral impression on thecal sac and contributes to narrowing of L2 foramina, greater on right than left. L3-L4: Concentric central canal stenosis secondary to posterior disc osteophyte complex and facet arthropathy. There is moderate compression of the thecal sac there is bilateral L3 foraminal stenosis. L4-L5: Borderline central canal stenosis secondary to mild disc bulge and severe facet hypertrophy. Moderate L4 foraminal narrowing bilaterally. L5-S1: Tiny tear of the posterior annulus without significant bulge or focal disc protrusion. No central canal or foraminal stenosis at this level. Soft tissues: There is a paucity of inflammatory reaction in the soft tissues at the L3-L4 level, but there is a small rim enhancing fluid collection at the lateral margin of the L3-L4 disc space (series [id number], image 23) that might be amenable to image guided aspiration, if warranted. MR/MR lumbar spine wo/w con [id number] IMPRESSION: Possibility of infectious discitis at L3-L4 and posterior L4 osteomyelitis is not excluded with certainty. However, given very similar appearance of findings on CT exam of 11/26/[address] exam 5 months earlier on 06/22/2024, aggressive infection is highly unlikely. Indolent infection, or noninfectious etiology for spondylodiscitis should be considered. In the absence of a history of chronic renal failure/dialysis, consider CPPD spondyloarthropathy or chronically increased stress at the L3-L4 level resulting from L2-L3 ankylosis.
[2024-11-27 11:10] LABS: Glucose Point of Care 214 mg/dL (70-110)
[2024-11-27] MEDS: gadobenate dimeglumine 20 mL vial IV (12:25)
[2024-11-27 17:15] LABS: Glucose Point of Care 198 mg/dL (70-110)
--- NOTE | 2024-11-27 17:43 | P.PN_ITS ---
Subjective 2 Subjective: Patient was seen this morning he is alert to person, to place, not to time he follows commands continues to complain of abdominal pain, back pain no fevers, no chills, Vitals/I&O/Wt Last Vital Signs Temp 98.5 F 11/27/24 16:00 Pulse 68 11/27/24 16:00 Resp 14 11/27/24 16:00 BP 155/68 11/27/24 16:00 Pulse Ox 95 11/27/24 16:00 O2 Del Method Room Air 11/27/24 16:00 11/27/24 11/27/24 11/27/24 06:59 14:59 22:59 Intake Total 350 / 1250.0 750 / 750 Output Total 400 / 850 Balance -50 / 400.0 750 / 750 Weight last 48 hrs Weight 87.589 kg Weight 81.703 kg Weight 81.647 kg Physical Exam 2 Const: COMMON NORMALS: no acute distress ORIENTATION/CONSCIOUSNESS: Yes awake, Yes oriented to person and Yes oriented to place; not oriented to time Resp: COMMON NORMALS: normal respiratory effort, No retractions, No use of accessory muscles and clear to auscultation bilaterally AUSCULTATION: clear to auscultation bilaterally Cardio: COMMON NORMALS: regular rate, regular rhythm, S1 normal heart sound present and S2 normal heart sound present RATE: regular rate RHYTHM: r egular rhythm HEART SOUNDS: S1 normal heart sound present and S2 normal heart sound present GI: COMMON NORMALS: Normal to inspection, nondistended, normoactive bowel sounds present and non-tender Extremity: COMMON NORMALS: no pedal edema Neuro: SENSORIUM/ORIENTATION: Yes oriented to person, Yes oriented to place and No oriented to time Psych: COMMON NORMALS: mental status grossly normal Data 11/27/24 04:13 11/27/24 04:13 Micro: Microbiology 11/26/24 03:38 Urine Culture - Preliminary Urine,Clean Catch Gram Negative Rods 11/26/24 02:51 Blood Culture - Preliminary Blood NEGATIVE TO DATE 11/26/24 01:52 Blood Culture - Preliminary Blood NEGATIVE TO DATE A&P Assessment and plan (1) Acute encephalopathy: (2) RAI (acute kidney injury): (3) Acidosis, lactic: (4) Complicated UTI (urinary tract infection): Plan Sepsis -Sepsis features met given evidence of urinary tract infection, elevated lactic acid, encephalopathy, leukocytosis -Source is likely UTI -However does have history of vertebral osteomyelitis, recurrent evidence seen on CT scan Complicated UTI -With history of bilateral nephrostomy tubes - CT/CT kidney stone [id number] IMPRESSION: 1. There is new stranding and induration about the pancreatic head concerning for pancreatitis and less likely duodenitis. Please correlate clinically. 2. There is new mild stranding in the right renal hilum. This may represent scarring versus inflammatory changes possibly from urinary tract infection. 3. Bladder appears contracted very small and is not well-visualized. This is not significantly changed. 4. 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 This is unchanged. 5. The rectum is moderately distended with retained stool. Please correlate clinically for impaction. Plan -Follow urine cultures -Follow blood cultures -Continue Zyvox -Continue meropenem Acute encephalopathy, resolving -Likely secondary UTI -Monitor mentation closely Elevated lactic acid -Likely from sepsis, History of vertebral osteomyelitis -CT scan shows bone loss about the L3-L4 disc likely from chronic discitis osteomyelitis CT/CT lumbar spine wo con* [id number] IMPRESSION: 1. Findings concerning for discitis/osteomyelitis at L3-L4 with destructive endplate changes, Advanced degenerative lumbar disease is present with retrolisthesis, anterolisthesis, fusion, and severe stenosis at L3-L4. Consider lumbar MRI with and without contrast for further evaluation. 2. Incidental mild pancreatic head stranding concerning for acute pancreatitis; correlate with lipase levels to exclude acute pancreatitis. -Sed rate 23 -Blood cultures -MRI lumbar spine ordered -Broad-spectrum antibiotic therapy Atrial fibrillation, continue digoxin History of anemia, hematuria, not on anticoagulant therapy elevated troponins, serial EKGs, troponins, telemetry monitoring Full code Lovenox for DVT prophylaxis PDMP PDMP Reviewed: Not Reviewed Attestations 2 Medical Necessity Statement*: Patient requires hospitalization for altered mental status, UTI, concern for acute cardiac vertebral osteomyelitis Diagnoses Acute encephalopathy G93.40 RAI (acute kidney injury) N17.9 Acidosis, lactic E87.2 Complicated UTI (urinary tract infection) N39.0
[2024-11-27 20:26] LABS: Glucose Point of Care 169 mg/dL (70-110)
[2024-11-27] MEDS: tamsulosin 0.4 mg Capsule PO (20:33)
[2024-11-28] VITALS (10 sets, daily range): BP systolic 95–120; BP diastolic 59–67; PULSE 72–92; RESP 15–18; TEMP 36.6–37; O2SAT 94–97
[2024-11-28] MEDS: HYDROMORPHONE HCL 0.5 MG/0.5 ML INJ 1 MG IVP ×5 (00:46→21:23)
[2024-11-28] MEDS: piperacillin-tazobactam 3.375 GM in sodium chloride 0.9% (plus) 50 ML IV ×3 (00:46→16:20)
[2024-11-28 04:28] LABS: Basophils # 0.1 10^3/uL (0.0-0.1); Basophils % 0.7 %; Eosinophils # 0.7 10^3/uL (0.0-0.8); Eosinophils % 4.9 %; Lymphocytes # 2.1 10^3/uL (0.8-4.8); Lymphocytes % 15.7 %; Mean Corpuscular HGB Conc 30.6 g/dL (30-55); Mean Corpuscular Hemoglobin 27.7 pg (27-33); Mean Corpuscular Volume 90.4 fl (82-101); Mean Platelet Volume 10.1 fL (7.4-10.4); Monocytes # 0.9 10^3/uL (0.2-0.9); Monocytes % 6.5 %; Neutrophils # 9.57 10^3/uL (1.8-7.7); Neutrophils % 71.6 %; Nucleated Red Blood Cells % 0 %; Platelet Count 265 10^3/cmm (157-399); Red Blood Count 3.76 10^6/uL (3.85-5.65); Red Cell Distribution Width 17.4 % (12.1-15.1); White Blood Count 13.37 10^3/uL (3.29-11.43)
[2024-11-28 04:44] LABS: Anion Gap 14.4 (5-19); Blood Urea Nitrogen 12 mg/dL (8-23); Calcium 8.2 mg/dL (8.5-10.5); Carbon Dioxide 22 mmol/L (22-29); Chloride 104 mmol/L (98-107); Creatinine Clr Calc Pharmacy 85.8492; Glucose 167 mg/dL (65-115); Magnesium 1.7 mg/dL (1.7-2.3); Osmolality Calculated 288 mOsm/kg (285-295); Potassium 3.4 mmol/L (3.5-5.1); Sodium 137 mmol/L (136-145)
[2024-11-28 05:47] LABS: Glucose Point of Care 173 mg/dL (70-110)
[2024-11-28] MEDS: enoxaparin 40 mg/0.4 mL Syringe SUBCUT (07:52)
[2024-11-28] MEDS: insulin lispro 100 unit/1 mL SUBCUT ×4 (07:52→21:23)
[2024-11-28] MEDS: finasteride 5 mg Tablet PO (07:55)
[2024-11-28] MEDS: pantoprazole 40 mg SDV IVP (07:55)
[2024-11-28] MEDS: docusate sodium 100 mg Capsule PO ×2 (07:55→17:23)
[2024-11-28] MEDS: donepezil 5 MG Tablet PO (07:56)
[2024-11-28] MEDS: cyanocobalamin 1,000 mcg Tablet 1000 MCG PO (07:56)
[2024-11-28] MEDS: digoxin 125 mcg Tablet PO (07:56)
[2024-11-28] MEDS: atorvastatin 40 mg Tablet 80 MG PO (07:56)
[2024-11-28] MEDS: linezolid premix 600 MG/300 ML PREMIX 300 MG IV ×2 (08:35→21:24)
--- NOTE | 2024-11-28 09:47 | PC.CHAP ---
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 cable rigger visit [] Patient/Family/Request visit [] Outpatient visit [] Follow-up visit [] Physician referral [] Code/Alert [x] Routine visit [] Staff referral [] Actively dying [] Patient sleeping [] Family support [] [] Out of room [] Palliative care [] [] Receiving care in room [] Pre-surgical visit [] Trauma [] Long length of stay [] ICU visit [] Other: Relational/Emotional Strength [] Patient feels connected with others/family/visitors/staff [] Distress [] Loneliness/isolation [] Abandonment Spirituality of Patient [x] Person of Melva [] Attends Congregational of their Melva [x] Believes in Prayer [] Reads Bible or Caodaism materials [] There are Spiritual issues to be addressed Management Professionals Interventions [x] Prayer [x] Active listening [] Non-anxious presence [] Spiritual/emotional support [] Crisis/trauma care [] Spiritual counseling [] Bereavement support [] Provided bereavement packet [] Provided Bible/devotional materials [] Provided toy/stuffed animal, coloring book to patient or family member [] Provided Communion [] Anointing/Traer [] Salvation [x] Completed spiritual assessment [] Other: Impact on Illness or Injury [] Angry [] Fearful [] Anxious [] Often cries [] Exhaustion [] Unable to work [] Unable to attend cheondoism [] Unable to walk/stand [] Unable to read [] Unable to drive [] Unable to eat/drink [] Unable to sleep [] Unable to be with family [] Patient intubated [] Other: Summary Time spent with patient 5 min
[2024-11-28] MEDS: ondansetron 2 mg/ML SDV 2 mL 4 MG IVP (10:49)
[2024-11-28 11:42] LABS: Glucose Point of Care 185 mg/dL (70-110)
--- NOTE | 2024-11-28 12:41 | PC.NURSE ---
Per patients daughter, Keerthi, he last had his nephrostomy tubes replaced [address] Cortés at [facility].
[2024-11-28 15:53] LABS: Glucose Point of Care 179 mg/dL (70-110)
--- NOTE | 2024-11-28 16:07 | PC.SOCIAL ---
IMM Update pg 2 of IMM Updated and reviewed w/ patient. Copy provided and copy dated, initialed and placed in chart.
--- NOTE | 2024-11-28 17:08 | PM.CONSULT ---
Providers/Reason For Consult Consulting Physician/Specialty*: Hospitalist Reason for Consult*: History of discitis osteomyelitis of the lumbar spine Attending Physician: Omari Lopez MD Primary Care Provider: Trisha Urena MD History of Present Illness History of Present Illness Raphael Deal is a 74 year old male presented the hospital 2 days ago for confusion. I was consulted for the history of his infection. Patient is not complaining of back pain when laying in bed however when he gets up he has severe pain in his back and weakness in his legs. Patient is now alert and oriented x 3 Review of Systems Const: Reports: fever(s) Resp: Denies: dyspnea GI: Reports: abdominal pain Medications/Allergies Home Medications ?Medication ?Instructions ?Recorded ?Confirmed ?Last Taken ?Type fluticasone 100 mcg-salmeterol 50 1 inh inhalation BID 10/03/21 11/26/24 11/25/24 06:00 History mcg/dose blistr powdr for inhalation (Wixela Inhub) acetaminophen 325 mg tablet 650 mg PO Q6H PRN Pain 07/02/23 11/26/24 11/21/24 19:45 History (Tylenol) bisacodyl 10 mg rectal suppository 10 mg MD DAILY PRN Constipation 07/02/23 11/26/24 03/31/24 History (Dulcolax (bisacodyl)) flash glucose scanning reader #1 ea 08/25/23 11/26/24 Unknown Rx (FreeStyle Jimi 2 [place]) FreeStyle Jimi 2 Sensor (flash #6 ea 12/11/23 11/26/24 Unknown Rx glucose sensor) blood-glucose meter,continuous #1 ea 02/08/24 11/26/24 Unknown Rx (Dexcom G7 Orthopedic Nurse Practitioner) blood-glucose sensor (Dexcom G7 #3 ea 02/08/24 11/26/24 Unknown Rx Sensor device) albuterol sulfate 90 mcg/actuation 2 puff inhalation Q4H PRN Dyspnea 04/27/24 11/26/24 06/22/23 History aerosol inhaler docusate sodium 100 mg capsule 100 mg PO BID 04/27/24 11/26/24 06/01/24 History (Colace) furosemide 20 mg tablet 20 mg PO DAILY 04/27/24 11/26/24 11/25/24 06:00 History magnesium hydroxide 400 mg/5 mL 20 ml PO BID PRN constipation #355 05/16/24 11/26/24 Unknown Rx oral suspension (Milk of Magnesia) mL insulin glargine 100 unit/mL (3 15 unit SUBCUT DAILY 06/01/24 11/26/24 11/25/24 06:00 History mL) subcutaneous pen (Lantus Solostar U-100 Insulin) atorvastatin 80 mg tablet 80 mg PO DAILY 11/26/24 11/26/24 11/25/24 06:00 History cholecalciferol (vitamin D3) 25 25 mcg PO DAILY 11/26/24 11/26/24 11/25/24 06:05 History mcg (1,000 unit) tablet cyanocobalamin (vitamin B-12) 1,000 mcg PO DAILY 11/26/24 11/26/24 11/25/24 06:05 History 1,000 mcg tablet dextromethorphan-guaifenesin 10 5 - 10 ml PO Q6H PRN Congestion 11/26/24 11/26/24 Unknown History mg-100 mg/5 mL oral liquid digoxin 125 mcg (0.125 mg) tablet 125 mcg PO DAILY 11/26/24 11/26/24 11/25/24 06:00 History donepezil 5 mg tablet 5 mg PO DAILY 11/26/24 11/26/24 11/25/24 06:00 History ferrous sulfate 325 mg (65 mg 325 mg PO DAILY 11/26/24 11/26/24 11/25/24 06:00 History iron) tablet (FeroSul) finasteride 5 mg tablet 5 mg PO DAILY 11/26/24 11/26/24 11/25/24 06:00 History fluticasone propionate 50 1 spray intranasal DAILY 11/26/24 11/26/24 11/25/24 06:00 History mcg/actuation nasal spray,suspension hydrocodone 7.5 mg-acetaminophen 1 tab PO Q4H PRN Pain 11/26/24 11/26/24 11/25/24 11:45 History 325 mg tablet insulin lispro 100 unit/mL See Rx Instructions .Route .COMPLEX 11/26/24 11/26/24 11/25/24 16:00 History subcutaneous pen melatonin 1 mg tablet 1 mg PO DAILY PRN Sleep 11/26/24 11/26/24 11/24/24 18:50 History metformin 500 mg tablet 500 mg PO DAILY 11/26/24 11/26/24 11/25/24 06:00 History metoprolol tartrate 25 mg tablet 25 mg PO BID 11/26/24 11/26/24 11/25/24 06:00 History multivitamin with folic acid 400 1 tab PO DAILY 11/26/24 11/26/24 11/25/24 06:05 History mcg tablet (Daily-Marylou (with folic acid)) omeprazole 20 mg capsule,delayed 20 mg PO DAILY 11/26/24 11/26/24 11/25/24 06:00 History release ondansetron HCl 4 mg tablet 4 mg PO .BEFORE MEALS PRN Nausea 11/26/24 11/26/24 11/25/24 16:00 History And Vomiting silver sulfadiazine 1 % topical See Rx Instructions .Route .COMPLEX 11/26/24 11/26/24 11/25/24 07:00 History cream tamsulosin 0.4 mg capsule 0.4 mg PO BEDTIME 11/26/24 11/26/24 11/25/24 18:55 History Allergies Allergy/AdvReac Type Severity Reaction Status Date / Time pollen extracts Allergy Unknown Verified 11/27/24 02:06 Current Medications Generic Name Dose Route Start Last Admin Trade Name Freq PRN Reason Stop Dose Admin Acetaminophen 650 mg 11/26/24 08:54 11/26/24 10:01 Acetaminophen 325 Mg Tablet PO 650 mg Q6H PRN Administration Mild/Mod Pain Or Temp >/= 101 Atorvastatin Calcium 80 mg 11/27/24 09:00 11/28/24 07:56 Atorvastatin 40 Mg Tablet PO 80 mg DAILY ROSALBA Administration Budesonide 0.5 mg 11/26/24 20:00 11/28/24 09:55 Budesonide 0.5 Mg/2 Ml Neb INHALATION Not Given BID.RESPIRATORY ROSALBA Cyanocobalamin 1,000 mcg 11/27/24 09:00 11/28/24 07:56 Cyanocobalamin 1,000 Mcg Tablet PO 1,000 mcg DAILY ROSALBA Administration Digoxin 125 mcg 11/27/24 09:00 11/28/24 07:56 Digoxin 125 Mcg Tablet PO 125 mcg DAILY ROSALBA Administration Docusate Sodium 100 mg 11/26/24 18:00 11/28/24 07:55 Docusate Sodium 100 Mg Capsule PO 100 mg BID ROSALBA Administration Donepezil HCl 5 mg 11/27/24 09:00 11/28/24 07:56 Donepezil 5 Mg Tablet PO 5 mg DAILY ROSALBA Administration Enoxaparin Sodium 40 mg 11/26/24 09:00 11/28/24 07:52 Enoxaparin 40 Mg/0.4 Ml Syringe SUBCUT 40 mg Q24H ROSALBA Administration Finasteride 5 mg 11/27/24 09:00 11/28/24 07:55 Finasteride 5 Mg Tablet PO 5 mg DAILY ROSALBA Administration Hydromorphone HCl 1 mg 11/26/24 10:56 11/28/24 16:19 Hydromorphone Hcl 0.5 Mg/0.5 Ml Inj IVP 1 mg Q4H PRN Administration PAIN Linezolid 600 mg in 300 mls @ 300 mls/hr 11/26/24 09:00 11/28/24 09:40 Zyvox Premix IV Infused Q12H ROSALBA Infusion Protocol Piperacillin Sod/Tazobactam 50 mls @ 12.5 mls/hr 11/26/24 09:30 11/28/24 16:20 Sod 3.375 gm/ Sodium Chloride IV 12.5 mls/hr Q8H ROSALBA Administration Insulin Human Lispro 0 unit 11/26/24 12:00 11/28/24 12:03 Insulin Lispro 100 Unit/1 Ml SUBCUT 6 unit WM&BEDTIME ROSALBA Administration Protocol Ondansetron HCl 4 mg 11/26/24 08:54 11/28/24 10:49 Ondansetron 2 Mg/Ml Sdv 2 Ml IVP 4 mg Q8H PRN Administration vomiting, or N/V if npo Pantoprazole Sodium 40 mg 11/26/24 09:00 11/28/24 07:55 Pantoprazole 40 Mg Sdv IVP 40 mg Q24H ROSALBA Administration Simethicone 40 mg 11/26/24 15:24 11/26/24 19:05 Simethicone 40 Mg/0.6 Ml Bottle 30ml PO 40 mg QID PRN Administration FLATULENCE Tamsulosin HCl 0.4 mg 11/26/24 21:00 11/27/24 20:33 Tamsulosin 0.4 Mg Capsule PO 0.4 mg BEDTIME ROSALBA Administration PFSH Acute PFSH: Medical History Yeast UTI Hematuria due to acute cystitis Mild cognitive impairment with memory loss Bacteriuria Alzheimer disease 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 mellitus History of Doppler ultrasound 08/2021 venous no DVT BLE 08/2021 arterial patent vessels, left posterior tibial may be less than 60% stenosis, left dorsalis pedis not visualized Gait instability SARS-CoV-2 positive positive test 11/17/2021 symptoms weakness, hypoglycemia, altered mental status and low grade fever Anemia Intermittent self-catheterization of bladder due to urinary retention History of sleep study 02/22 limited sleep, no apnea noted but did have nocturnal hypoxemia, recommended to use nocturnal oxygen History of electromyography 01/23 Interpretation: The study provides electrodiagnostic evidence for an axonal sensorimotor polyneuropathy based on small or absent CMAPs and SNAPs with denervation seen distally on EMG. The study is limited for evaluation of lumbar radiculopathy related to the patient's anticoagulated state. History of echocardiogram 05/2021 EF 65% History of cardiovascular stress test 05/2021 normal EKG response, perfusion study without findings of ischemia Diabetes mellitus, type II Chronic anticoagulation Taken off Xarelto secondary to hematuria BPH loc w urin obs/LUTS Obstructive pyelonephritis 09/2021 required ureteral stent placement Left ureteral calculus Diabetic foot ulcer 08/2021 - treated with I&D, antibiotics and wound care clinic management Lumbar stenosis with neurogenic claudication 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 mellitus Cervicalgia of onfangzy-jgmlymp-auoyh region Lumbar stenosis L2/3, L3/4, L4/L5, with radiculopathy right lower extremity H/O prostate cancer Obstructive sleep apnea Refuses CPAP HTN (hypertension) previously on treatment for high blood pressure Atrial fibrillation Surgical History Status post excisional debridement 08/2021 left foot History of laminectomy 03/25 bilateral with partial facetectomies at L2-3, L3-4, L4-[address] Smith Other postprocedural status history of radiofrequency ablation for back pain x 2 Status post laser lithotripsy of ureteral calculus (11/06/21) S/P ureteral stent placement (09/2021) subsequent removal H/O esophagogastroduodenoscopy (10/30/21) 10/2021 pedunculated polyps removed from first portion of duodenum, otherwise normal History of colonoscopy (10/30/21) 11/2021 diverticulosis of sigmoid colon and internal hemorrhoids, sessile polyps removed History of back surgery S/P tonsillectomy S/P appendectomy History of pilonidal cyst Family History Grandmother Heart disease Hypertension Grandfather Hypertension MATERNAL Diabetes Mother No problems noted. Father No problems noted. 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 Vitals/I&O/Wt Last Vital Signs Temp 97.9 F 11/28/24 16:00 Pulse 77 11/28/24 16:00 Resp 16 11/28/24 16:00 BP 118/67 11/28/24 16:00 Pulse Ox 96 11/28/24 16:00 O2 Del Method Room Air 11/28/24 16:00 11/28/24 11/28/24 11/28/24 06:59 14:59 22:59 Intake Total 50 / 1730 830.000 / 830.000 Output Total 300 / 1100 Balance -250 / 630 830.000 / 830.000 Weight last 48 hrs Weight 196 lb 3.2 oz Weight 193 lb 1.6 oz Weight 180 lb 2 oz Physical Exam Narrative: Alert and oriented x 3 Head is normocephalic atraumatic Respirations are intact No evidence of any rashes or infection Moving bilateral lower extremities Sensation intact in all extremities MRI reviewed:Possibility of infectious discitis at L3-L4 and posterior L4 osteomyelitis is not excluded with certainty. However, given very similar appearance of findings on CT exam of 11/26/[address] exam 5 months earlier on 06/22/2024, aggressive infection is highly unlikely. Indolent infection, or noninfectious etiology for spondylodiscitis should be considered. In the absence of a history of chronic renal failure/dialysis, consider CPPD spondyloarthropathy or chronically increased stress at the L3-L4 level resulting from L2-L3 ankylosis. Data 11/28/24 03:20 11/28/24 03:20 Micro: Microbiology 11/26/24 03:38 Urine Culture - Final Urine,Clean Catch Proteus mirabilis A&P Assessment and plan (1) Spinal stenosis, lumbar region, with neurogenic claudication: L3-4 discitis patient has lumbar stenosis well at this point continue to treat medically. No indication for surgery at this point. PDMP PDMP Reviewed: Not Reviewed Coding Level of Care Code Acute Code for Chg Fwd Diagnoses Spinal stenosis, lumbar region, with neurogenic claudication M48.062
--- NOTE | 2024-11-28 18:56 | P.PN_ITS ---
Subjective 2 Subjective: Patient was seen this morning, he is alert oriented x 2, following all commands, denies any fevers, chills, no cough, does complain of flank pain -Patient does not remember where he had his nephrostomy tubes placed -We discussed his UTI, discussed his george dence of vertebral osteomyelitis -I spoke to patient's daughter, she tell s me that nephrostomy tubes were placed placed at [facility], he was supposed to follow-up, however he ended up in the hospital -He also has a bit intermittently follow ing with Dr. Cartwright in [place], but has not seen him in approximately a year -He followed up with Vinnie tracy of [facility] -His vertebral osteomyelitis, he followe d up with infectious disease in [place], ? I reached out to infectious disease at [facility], have not heard back as of yet -Spoke to Dr. 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 Vinnie Cortés [place] spoke to his nurse, left them my contact Vitals/I&O/Wt Last Vital Signs Temp 97.9 F 11/28/24 16:00 Pulse 77 11/28/24 16:00 Resp 16 11/28/24 16:00 BP 118/67 11/28/24 16:00 Pulse Ox 96 11/28/24 16:00 O2 Del Method Room Air 11/28/24 16:00 11/28/24 11/28/24 11/28/24 06:59 14:59 22:59 Intake Total 50 / 1730 830.000 / 830.000 Output Total 300 / 1100 Balance -250 / 630 830.000 / 830.000 Weight last 48 hrs Weight 88.995 kg Weight 87.589 kg Weight 81.703 kg Physical Exam 2 Const: COMMON NORMALS: no acute distress ORIENTATION/CONSCIOUSNESS: Yes awake, Yes oriented to person and Yes oriented to place; not oriented to time Resp: COMMON NORMALS: normal respiratory effort, No retractions, No use of accessory muscles and clear to auscultation bilaterally AUSCULTATION: clear to auscultation bilaterally Cardio: COMMON NORMALS: regular rate, regular rhythm, S1 normal heart sound present and S2 normal heart sound present RATE: regular rate RHYTHM: r egular rhythm HEART SOUNDS: S1 normal heart sound present and S2 normal heart sound present GI: COMMON NORMALS: Normal to inspection, nondistended, normoactive bowel sounds present and non-tender Extremity: COMMON NORMALS: no pedal edema Neuro: SENSORIUM/ORIENTATION: Yes oriented to person, Yes oriented to place and No oriented to time Psych: COMMON NORMALS: mental status grossly normal Data 11/28/24 03:20 11/28/24 03:20 Micro: Microbiology 11/26/24 03:38 Urine Culture - Final Urine,Clean Catch Proteus mirabilis A&P Assessment and plan (1) Acute encephalopathy: (2) RAI (acute kidney injury): (3) Acidosis, lactic: (4) Complicated UTI (urinary tract infection): Plan Sepsis -Sepsis features met given evidence of urinary tract infection, elevated lactic acid, encephalopathy, leukocytosis -Source is likely UTI -However does have history of vertebral osteomyelitis, recurrent evidence seen on CT scan Complicated UTI -With history of bilateral nephrostomy tubes - CT/CT kidney stone [id number] IMPRESSION: 1. There is new stranding and induration about the pancreatic head concerning for pancreatitis and less likely duodenitis. Please correlate clinically. 2. There is new mild stranding in the right renal hilum. This may represent scarring versus inflammatory changes possibly from urinary tract infection. 3. Bladder appears contracted very small and is not well-visualized. This is not significantly changed. 4. 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 This is unchanged. 5. The rectum is moderately distended with retained stool. Please correlate clinically for impaction. Plan -Follow urine cultures -Follow blood cultures -Continue Zyvox -Continue meropenem Acute encephalopathy, resolving -Likely secondary UTI -Monitor mentation closely Elevated lactic acid -Likely from sepsis, History of vertebral osteomyelitis -Concerns for acute on chronic osteomyelitis -CT scan shows bone loss about the L3-L4 disc likely from chronic discitis osteomyelitis CT/CT lumbar spine wo con* [id number] IMPRESSION: 1. Findings concerning for discitis/osteomyelitis at L3-L4 with destructive endplate changes, Advanced degenerative lumbar disease is present with retrolisthesis, anterolisthesis, fusion, and severe stenosis at L3-L4. Consider lumbar MRI with and without contrast for further evaluation. 2. Incidental mild pancreatic head stranding concerning for acute pancreatitis; correlate with lipase levels to exclude acute pancreatitis. -MRI spine MR/MR lumbar spine wo/w con [id number] IMPRESSION: Possibility of infectious discitis at L3-L4 and posterior L4 osteomyelitis is not excluded with certainty. However, given very similar appearance of findings on CT exam of 11/26/[address] exam 5 months earlier on 06/22/2024, aggressive infection is highly unlikely. Indolent infection, or noninfectious etiology for spondylodiscitis should be considered. In the absence of a history of chronic renal failure/dialysis, consider CPPD spondyloarthropathy or chronically increased stress at the L3-L4 level resulting from L2-L3 ankylosis. -Sed rate 23 -Blood cultures -Broad-spectrum antibiotic therapy Atrial fibrillation, continue digoxin History of anemia, hematuria, not on anticoagulant therapy elevated troponins, serial EKGs, troponins, telemetry monitoring Full code Lovenox for DVT prophylaxis Plan for today create antibiotics, consult Dr. Smith, reached out to urology, infectious disease PDMP PDMP Reviewed: Not Reviewed Attestations 2 Medical Necessity Statement*: Patient requires hospitalization for urinary tract infection complicated with bilateral nephrostomy tube, with evidence of lumbar discitis Diagnoses Acute encephalopathy G93.40 RAI (acute kidney injury) N17.9 Acidosis, lactic E87.2 Complicated UTI (urinary tract infection) N39.0
[2024-11-28 20:18] LABS: Glucose Point of Care 181 mg/dL (70-110)
[2024-11-28] MEDS: budesonide 0.5 mg/2 mL Neb INHALATION (20:27)
[2024-11-28] MEDS: tamsulosin 0.4 mg Capsule PO (21:24)
--- NOTE | 2024-11-28 21:49 | PC.NURSE ---
250ml dark yellow, cloudy urine out of right nephrostomy tube, 200ml dark yellow, cloudy urine out of left nephrostomy tube.
[2024-11-29] VITALS (13 sets, daily range): BP systolic 102–128; BP diastolic 59–76; PULSE 72–112; RESP 16–20; TEMP 36.4–36.7; O2SAT 93–97; BMI 29.8
[2024-11-29] MEDS: acetaminophen 325 mg Tablet 650 MG PO (00:41)
[2024-11-29] MEDS: piperacillin-tazobactam 3.375 GM in sodium chloride 0.9% (plus) 50 ML IV ×3 (00:41→17:02)
[2024-11-29] MEDS: HYDROMORPHONE HCL 0.5 MG/0.5 ML INJ 1 MG IVP ×5 (02:17→21:07)
[2024-11-29 04:51] LABS: Basophils # 0.1 10^3/uL (0.0-0.1); Basophils % 0.5 %; Eosinophils # 0.4 10^3/uL (0.0-0.8); Eosinophils % 3.7 %; Hematocrit 31.7 % (37-53); Lymphocytes # 1.8 10^3/uL (0.8-4.8); Lymphocytes % 15.2 %; Mean Corpuscular HGB Conc 31.5 g/dL (30-55); Mean Corpuscular Hemoglobin 27.2 pg (27-33); Mean Corpuscular Volume 86.1 fl (82-101); Mean Platelet Volume 9.5 fL (7.4-10.4); Monocytes # 0.8 10^3/uL (0.2-0.9); Monocytes % 6.9 %; Neutrophils # 8.58 10^3/uL (1.8-7.7); Neutrophils % 73.2 %; Nucleated Red Blood Cells % 0 %; Platelet Count 296 10^3/cmm (157-399); Red Blood Count 3.68 10^6/uL (3.85-5.65); Red Cell Distribution Width 17.1 % (12.1-15.1); White Blood Count 11.74 10^3/uL (3.29-11.43)
[2024-11-29 05:07] LABS: Anion Gap 15.1 (5-19); Blood Urea Nitrogen 10 mg/dL (8-23); Calcium 7.8 mg/dL (8.5-10.5); Carbon Dioxide 21 mmol/L (22-29); Chloride 105 mmol/L (98-107); Creatinine Clr Calc Pharmacy 76.8745; Glucose 192 mg/dL (65-115); Magnesium 1.6 mg/dL (1.7-2.3); Osmolality Calculated 290 mOsm/kg (285-295); Phosphorus 2.6 mg/dL (2.5-4.5); Potassium 3.1 mmol/L (3.5-5.1); Sodium 138 mmol/L (136-145)
[2024-11-29 05:47] LABS: Glucose Point of Care 184 mg/dL (70-110)
[2024-11-29] MEDS: budesonide 0.5 mg/2 mL Neb INHALATION ×2 (07:52→22:04)
[2024-11-29] MEDS: atorvastatin 40 mg Tablet 80 MG PO (08:09)
[2024-11-29] MEDS: donepezil 5 MG Tablet PO (08:09)
[2024-11-29] MEDS: docusate sodium 100 mg Capsule PO (08:09)
[2024-11-29] MEDS: cyanocobalamin 1,000 mcg Tablet 1000 MCG PO (08:09)
[2024-11-29] MEDS: finasteride 5 mg Tablet PO (08:09)
[2024-11-29] MEDS: enoxaparin 40 mg/0.4 mL Syringe SUBCUT (08:09)
[2024-11-29] MEDS: digoxin 125 mcg Tablet PO (08:09)
[2024-11-29] MEDS: linezolid premix 600 MG/300 ML PREMIX 300 MG IV (08:10)
[2024-11-29] MEDS: insulin lispro 100 unit/1 mL SUBCUT ×3 (08:10→17:01)
[2024-11-29] MEDS: pantoprazole 40 mg SDV IVP (08:10)
[2024-11-29] MEDS: potassium chloride ER 20 mEq Tablet 40 MEQ PO (08:16)
[2024-11-29 11:21] LABS: Glucose Point of Care 187 mg/dL (70-110)
[2024-11-29 16:04] LABS: Glucose Point of Care 166 mg/dL (70-110)
--- NOTE | 2024-11-29 17:31 | PM.PN ---
Subjective Subjective: Patient was seen this morning, he is alert awake following all commands, denies any fevers, chills, no cough, he does complain of nausea, we discussed trying a scopolamine patch -I spoke to patient's urologist [facility] Dr. Lamine Cortés, he recommended patient's nephrostomy tubes to be exchanged however he does not do them, and it was IR in [facility] that was doing exchanges -I reached out to the interventional radiology team at [facility] however have not heard back -I have reached out to Dr. Cartwright's office however his office is closed but did leave a message for him on Thursday have not heard back -I reached out to infectious disease?[facility] however her back Vitals/I&O/Wt Last Vital Signs Temp 97.9 F 11/29/24 16:00 Pulse 72 11/29/24 16:00 Resp 17 11/29/24 16:00 BP 128/76 11/29/24 16:00 Pulse Ox 96 11/29/24 16:00 O2 Del Method Room Air 11/29/24 16:00 11/29/24 11/29/24 11/29/24 06:59 14:59 22:59 Intake Total 170 / 1350.000 710 / 710 Output Total 200 / 650 800 / 800 Balance -30 / 700.000 710 / 710 -800 / -90 Weight last 48 hrs Weight 88.989 kg Weight 88.995 kg Physical Exam Const: COMMON NORMALS: no acute distress and patient oriented x3 Resp: COMMON NORMALS: normal respiratory effort, No retractions, No use of accessory muscles and clear to auscultation bilaterally AUSCULTATION: clear to auscultation bilaterally Cardio: COMMON NORMALS: regular rate, regular rhythm, S1 normal heart sound present and S2 normal heart sound present RATE: regular rate RHYTHM: regular rhythm HEART SOUNDS: S1 normal heart sound present and S2 normal heart sound present GI: COMMON NORMALS: Normal to inspection, nondistended, normoactive bowel sounds present and non-tender Extremity: COMMON NORMALS: no pedal edema Neuro: COMMON NORMALS: patient oriented x3 and CN's II-XII intact bilaterally Psych: COMMON NORMALS: mental status grossly normal Data 11/29/24 04:36 11/29/24 04:36 Micro: Microbiology 11/26/24 03:38 Urine Culture - Final Urine,Clean Catch Proteus mirabilis A&P Assessment and plan (1) Acute encephalopathy: (2) RAI (acute kidney injury): (3) Acidosis, lactic: (4) Complicated UTI (urinary tract infection): (5) Vertebral osteomyelitis: Plan Sepsis -Sepsis features met given evidence of urinary tract infection, elevated lactic acid, encephalopathy, leukocytosis -Source is likely UTI -However does have history of vertebral osteomyelitis, recurrent evidence seen on CT scan Complicated UTI -With history of bilateral nephrostomy tubes - CT/CT kidney stone [id number] IMPRESSION: 1. There is new stranding and induration about the pancreatic head concerning for pancreatitis and less likely duodenitis. Please correlate clinically. 2. There is new mild stranding in the right renal hilum. This may represent scarring versus inflammatory changes possibly from urinary tract infection. 3. Bladder appears contracted very small and is not well-visualized. This is not significantly changed. 4. 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 This is unchanged. 5. The rectum is moderately distended with retained stool. Please correlate clinically for impaction. Plan -Follow urine cultures -Follow blood cultures -Continue Zyvox -Continue meropenem Acute encephalopathy, resolving -Likely secondary UTI -Monitor mentation closely Elevated lactic acid -Likely from sepsis, History of vertebral osteomyelitis -Concerns for acute on chronic osteomyelitis -CT scan shows bone loss about the L3-L4 disc likely from chronic discitis osteomyelitis CT/CT lumbar spine wo con* [id number] IMPRESSION: 1. Findings concerning for discitis/osteomyelitis at L3-L4 with destructive endplate changes, Advanced degenerative lumbar disease is present with retrolisthesis, anterolisthesis, fusion, and severe stenosis at L3-L4. Consider lumbar MRI with and without contrast for further evaluation. 2. Incidental mild pancreatic head stranding concerning for acute pancreatitis; correlate with lipase levels to exclude acute pancreatitis. -MRI spine MR/MR lumbar spine wo/w con [id number] IMPRESSION: Possibility of infectious discitis at L3-L4 and posterior L4 osteomyelitis is not excluded with certainty. However, given very similar appearance of findings on CT exam of 11/26/[address] exam 5 months earlier on 06/22/2024, aggressive infection is highly unlikely. Indolent infection, or noninfectious etiology for spondylodiscitis should be considered. In the absence of a history of chronic renal failure/dialysis, consider CPPD spondyloarthropathy or chronically increased stress at the L3-L4 level resulting from L2-L3 ankylosis. -Sed rate 23 -Blood cultures -Broad-spectrum antibiotic therapy Atrial fibrillation, continue digoxin History of anemia, hematuria, not on anticoagulant therapy elevated troponins, serial EKGs, troponins, telemetry monitoring Full code Lovenox for DVT prophylaxis Plan for today create antibiotics, consult Dr. Smith, reached out to urology, infectious disease PDMP PDMP Reviewed: Not Reviewed Attestations Medical Necessity Statement*: Patient requires hospitalization for complicated UTI with bilateral nephrostomy tubes, requiring IV antibiotics, vertebral osteomyelitis requiring IV antibiotics Diagnoses Acute encephalopathy G93.40 RAI (acute kidney injury) N17.9 Acidosis, lactic E87.2 Complicated UTI (urinary tract infection) N39.0 Vertebral osteomyelitis M46.20
--- NOTE | 2024-11-29 17:42 | PHA.VACGOAL ---
Vancomycin Goal - Goal Vancomycin Goal:: 15-20 mg/L Vancomycin Indication:: Other (Vertebral osteomyelitis) - Therapy Day of therpy:: Day []of [] . Actual body weight (kg): 88.989 kg - Data Labs: WBC 11.74 10^3/uL (3.29-11.43) H 11/29/24 04:36 Corrected WBC Cancelled 11/25/24 00:14 RBC 3.68 10^6/uL (3.85-5.65) L 11/29/24 04:36 Hgb 10.00 g/dL (11.27-16.99) L 11/29/24 04:36 Hct 31.7 % (37-53) L 11/29/24 04:36 MCV 86.1 fl (82-101) 11/29/24 04:36 MCH 27.2 pg (27-33) 11/29/24 04:36 MCHC 31.5 g/dL (30-55) 11/29/24 04:36 RDW 17.1 % (12.1-15.1) H 11/29/24 04:36 Sodium 138 mmol/L (136-145) 11/29/24 04:36 Potassium 3.1 mmol/L (3.5-5.1) L 11/29/24 04:36 Chloride 105 mmol/L (98-107) 11/29/24 04:36 Carbon Dioxide 21 mmol/L (22-29) L 11/29/24 04:36 Anion Gap 15.1 (5-19) 11/29/24 04:36 BUN 10 mg/dL (8-23) 11/29/24 04:36 Creatinine 0.9 mg/dL (0.7-1.2) 11/29/24 04:36 GFR Calculation Not Reportable 11/29/24 04:36 Treatment plan:: new consult Regimen:: New start vancomycin for Vertebral osteomyelitis. No history of vancomycin found. Received 2000 mg load dose. Started on maintenance dose of 1000 mg q12h based on population based pharmacokinetic nomogram.
[2024-11-29] MEDS: scopolamine 1 mg PATCH 1 PATCH TRANSDERMA (17:53)
[2024-11-29] MEDS: cefTRIAXone 1,000 mg SDV 1000 MG IVP (17:54)
[2024-11-29] MEDS: vancomycin 2,000 MG/400 ML PIGGYBACK 200 MG IV (17:55)
[2024-11-29] MEDS: tamsulosin 0.4 mg Capsule PO (20:48)
[2024-11-29 21:00] LABS: Glucose Point of Care 133 mg/dL (70-110)
[2024-11-30] VITALS (14 sets, daily range): BP systolic 102–135; BP diastolic 66–84; PULSE 65–94; RESP 16–20; TEMP 36.3–36.9; O2SAT 94–99; BMI 29.7
[2024-11-30 05:20] LABS: Basophils # 0.1 10^3/uL (0.0-0.1); Basophils % 0.5 %; Eosinophils # 0.5 10^3/uL (0.0-0.8); Eosinophils % 3.9 %; Hematocrit 32.8 % (37-53); Lymphocytes # 1.8 10^3/uL (0.8-4.8); Mean Corpuscular HGB Conc 30.8 g/dL (30-55); Mean Corpuscular Hemoglobin 26.9 pg (27-33); Mean Corpuscular Volume 87.2 fl (82-101); Mean Platelet Volume 9.6 fL (7.4-10.4); Monocytes # 0.7 10^3/uL (0.2-0.9); Monocytes % 5.7 %; Neutrophils # 9.59 10^3/uL (1.8-7.7); Neutrophils % 75.4 %; Nucleated Red Blood Cells % 0 %; Platelet Count 299 10^3/cmm (157-399); Red Blood Count 3.76 10^6/uL (3.85-5.65); Red Cell Distribution Width 17.2 % (12.1-15.1); White Blood Count 12.74 10^3/uL (3.29-11.43)
[2024-11-30 05:40] LABS: Alanine Aminotransferase < 5 U/L (0-41); Albumin Level 2.5 g/dL (3.5-5.2); Alkaline Phosphatase 91 U/L (40-130); Anion Gap 15.5 (5-19); Aspartate Amino Transferase 10 U/L (0-40); Blood Urea Nitrogen 9 mg/dL (8-23); Calcium 8.1 mg/dL (8.5-10.5); Carbon Dioxide 23 mmol/L (22-29); Chloride 106 mmol/L (98-107); Creatinine Clr Calc Pharmacy 76.8721; Glucose 183 mg/dL (65-115); Osmolality Calculated 295 mOsm/kg (285-295); Potassium 3.5 mmol/L (3.5-5.1); Sodium 141 mmol/L (136-145); Total Bilirubin 0.3 mg/dL (0.15-1.2); Total Protein 5.5 g/dL (6.6-8.7)
[2024-11-30] MEDS: VANCOMYCIN ADD-Vantage 1,000 MG in 0.9% NaCl ADD-Vantage 250 ML 250 MG IV ×2 (06:05→17:17)
[2024-11-30] MEDS: HYDROMORPHONE HCL 0.5 MG/0.5 ML INJ 1 MG IVP ×3 (06:08→23:10)
[2024-11-30 08:01] LABS: Glucose Point of Care 165 mg/dL (70-110)
[2024-11-30] MEDS: finasteride 5 mg Tablet PO (09:16)
[2024-11-30] MEDS: digoxin 125 mcg Tablet PO (09:16)
[2024-11-30] MEDS: atorvastatin 40 mg Tablet 80 MG PO (09:16)
[2024-11-30] MEDS: donepezil 5 MG Tablet PO (09:17)
[2024-11-30] MEDS: docusate sodium 100 mg Capsule PO (09:17)
[2024-11-30] MEDS: cyanocobalamin 1,000 mcg Tablet 1000 MCG PO (09:17)
[2024-11-30] MEDS: insulin lispro 100 unit/1 mL SUBCUT ×4 (09:18→21:09)
[2024-11-30] MEDS: enoxaparin 40 mg/0.4 mL Syringe SUBCUT (09:19)
[2024-11-30] MEDS: pantoprazole 40 mg SDV IVP (09:19)
[2024-11-30 11:29] LABS: Glucose Point of Care 186 mg/dL (70-110)
--- NOTE | 2024-11-30 11:55 | XR_ITS ---
WS: [id number] Portable AP upright chest, 11/30/2024 Clinical Data: PICC PLACEMENT Comparison: Portable chest, 11/25/2024 Findings: The right PICC line shows no pneumothorax and ends in the superior vena cava. XR/XR chest 1V portable [id number] Impression: Satisfactory insertion of right PICC line.
--- NOTE | 2024-11-30 13:21 | PC.SLP ---
[employer] F[employer] attempted to assess, however, the patient is not in his room at the present time. Patient's bed is not in the room.
--- NOTE | 2024-11-30 13:26 | PC.SOCIAL ---
IMM Update pg 2 of IMM updated and reviewed w/ patient. Copy provided and copy dated, initialed and placed in chart.
--- NOTE | 2024-11-30 15:42 | P.PN_ITS ---
Subjective 2 Subjective: Patient was seen this morning, he is alert to person, to place, not to time but follows all commands, has complaints of back pain, no fevers, no chills, PICC line to be placed today, continue IV antibiotics -Spoke to Dr. Cartwright office in [facility] spoke to his nurse, they are agreeable to see patient in [place] for change out of his bilateral nephrostomy tube, they will communicate with patient's senior care -I also communicated with infectious dis ease at [facility], Dr. Man potentially they are agreeable to follow patient's IV antibiotics, pulm will have to confirm with Dr. Man awaiting a call callback Vitals/I&O/Wt Last Vital Signs Temp 98.2 F 11/30/24 11:57 Pulse 94 11/30/24 14:00 Resp 16 11/30/24 11:57 BP 119/72 11/30/24 11:57 Pulse Ox 99 11/30/24 11:57 O2 Del Method Room Air 11/30/24 11:57 11/30/24 11/30/24 11/30/24 06:59 14:59 22:59 Intake Total 450 / 1691.667 730 / 730 Output Total 414 / 1614 Balance 36 / 77.667 730 / 730 Weight last 48 hrs Weight 88.904 kg Weight 88.989 kg Physical Exam 2 Const: COMMON NORMALS: no acute distress and patient oriented x3 Resp: COMMON NORMALS: normal respiratory effort, No retractions, No use of accessory muscles and clear to auscultation bilaterally AUSCULTATION: clear to auscultation bilaterally Cardio: COMMON NORMALS: regular rate, regular rhythm, S1 normal heart sound present and S2 normal heart sound present RATE: regular rate RHYTHM: r egular rhythm HEART SOUNDS: S1 normal heart sound present and S2 normal heart sound present GI: COMMON NORMALS: Normal to inspection, nondistended, normoactive bowel sounds present and non-tender Back/Pelvis: OTHER: Bilateral nephrostomy tubes in place Extremity: COMMON NORMALS: no pedal edema Neuro: COMMON NORMALS: patient oriented x3 Psych: COMMON NORMALS: mental status grossly normal Data 11/30/24 04:01 11/30/24 04:01 A&P Assessment and plan (1) Acute encephalopathy: (2) RAI (acute kidney injury): (3) Acidosis, lactic: (4) Complicated UTI (urinary tract infection): (5) Vertebral osteomyelitis: Plan Sepsis, resolved -Sepsis features met given evidence of urinary tract infection, elevated lactic acid, encephalopathy, leukocytosis -Source is likely UTI -However does have history of vertebral osteomyelitis, recurrent evidence seen on CT scan Complicated UTI -With history of bilateral nephrostomy tubes - CT/CT kidney stone [id number] IMPRESSION: 1. There is new stranding and induration about the pancreatic head concerning for pancreatitis and less likely duodenitis. Please correlate clinically. 2. There is new mild stranding in the right renal hilum. This may represent scarring versus inflammatory changes possibly from urinary tract infection. 3. Bladder appears contracted very small and is not well-visualized. This is not significantly changed. 4. 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 This is unchanged. 5. The rectum is moderately distended with retained stool. Please correlate clinically for impaction. Plan -Follow urine cultures showing Proteus species sensitive to Rocephin -Follow blood cultures, so far negative -De-escalate to Rocephin -Spoke to Dr. Cartwright nurse in [place], she will set up an appointment with senior care for patient to follow-up for change out of bilateral nephrostomy tubes Acute encephalopathy, resolving -Likely secondary UTI -Monitor mentation closely Elevated lactic acid, resolving -Likely from sepsis, History of vertebral osteomyelitis -Concerns for acute on chronic osteomyelitis -CT scan shows bone loss about the L3-L4 disc likely from chronic discitis osteomyelitis CT/CT lumbar spine wo con* [id number] IMPRESSION: 1. Findings concerning for discitis/osteomyelitis at L3-L4 with destructive endplate changes, Advanced degenerative lumbar disease is present with retrolisthesis, anterolisthesis, fusion, and severe stenosis at L3-L4. Consider lumbar MRI with and without contrast for further evaluation. 2. Incidental mild pancreatic head stranding concerning for acute pancreatitis; correlate with lipase levels to exclude acute pancreatitis. -MRI spine MR/MR lumbar spine wo/w con [id number] IMPRESSION: Possibility of infectious discitis at L3-L4 and posterior L4 osteomyelitis is not excluded with certainty. However, given very similar appearance of findings on CT exam of 11/26/[address] exam 5 months earlier on 06/22/2024, aggressive infection is highly unlikely. Indolent infection, or noninfectious etiology for spondylodiscitis should be considered. In the absence of a history of chronic renal failure/dialysis, consider CPPD spondyloarthropathy or chronically increased stress at the L3-L4 level resulting from L2-L3 ankylosis. -Sed rate 23 -Blood cultures -Broad-spectrum antibiotic therapy -Will need 6 weeks of IV vancomycin -Will need 6 weeks of IV Rocephin -PICC line placed -Reached out to Dr. Hood office to follow IV antibiotics, will await callback for confirmation Atrial fibrillation, continue digoxin History of anemia, hematuria, not on anticoagulant therapy elevated troponins, serial EKGs, troponins, telemetry monitoring Full code Lovenox for DVT prophylaxis Plan for today IV antibiotics, IV PICC line, arrange follow-up with specialist PDMP PDMP Reviewed: Not Reviewed Attestations 2 Medical Necessity Statement*: Patient requires hospitalization for complicated UTI, vertebral osteomyelitis, requiring IV antibiotics Diagnoses Acute encephalopathy G93.40 RAI (acute kidney injury) N17.9 Acidosis, lactic E87.2 Complicated UTI (urinary tract infection) N39.0 Vertebral osteomyelitis M46.20
--- NOTE | 2024-11-30 15:54 | PC.NURSE ---
nephrostomy urine output 300 each side
[2024-11-30 17:17] LABS: Glucose Point of Care 177 mg/dL (70-110)
[2024-11-30] MEDS: cefTRIAXone 1,000 mg SDV 1000 MG IVP (17:17)
[2024-11-30 20:26] LABS: Glucose Point of Care 244 mg/dL (70-110)
[2024-11-30] MEDS: tamsulosin 0.4 mg Capsule PO (21:09)
[2024-12-01] VITALS (8 sets, daily range): BP systolic 101–126; BP diastolic 64–76; PULSE 66–80; RESP 15–19; TEMP 36.8–36.9; O2SAT 96–98
[2024-12-01] MEDS: HYDROMORPHONE HCL 0.5 MG/0.5 ML INJ 1 MG IVP ×3 (03:56→23:13)
[2024-12-01 04:44] LABS: Basophils # 0.1 10^3/uL (0.0-0.1); Basophils % 0.4 %; Eosinophils # 0.4 10^3/uL (0.0-0.8); Eosinophils % 3.2 %; Hematocrit 27.5 % (37-53); Lymphocytes # 2.1 10^3/uL (0.8-4.8); Lymphocytes % 18.5 %; Mean Corpuscular HGB Conc 31.3 g/dL (30-55); Mean Corpuscular Hemoglobin 27.3 pg (27-33); Mean Corpuscular Volume 87.3 fl (82-101); Mean Platelet Volume 9.4 fL (7.4-10.4); Monocytes # 0.7 10^3/uL (0.2-0.9); Monocytes % 6.1 %; Neutrophils # 7.95 10^3/uL (1.8-7.7); Neutrophils % 71.4 %; Nucleated Red Blood Cells % 0 %; Platelet Count 255 10^3/cmm (157-399); Red Blood Count 3.15 10^6/uL (3.85-5.65); Red Cell Distribution Width 17.3 % (12.1-15.1); White Blood Count 11.16 10^3/uL (3.29-11.43)
[2024-12-01 05:09] LABS: Alanine Aminotransferase < 5 U/L (0-41); Albumin Level 2.3 g/dL (3.5-5.2); Alkaline Phosphatase 78 U/L (40-130); Aspartate Amino Transferase 11 U/L (0-40); Blood Urea Nitrogen 10 mg/dL (8-23); Calcium 7.3 mg/dL (8.5-10.5); Carbon Dioxide 21 mmol/L (22-29); Chloride 108 mmol/L (98-107); Creatinine Clr Calc Pharmacy 86.4017; Globulin 2.5 g/dL (1.3-4.6); Glucose 178 mg/dL (65-115); Osmolality Calculated 289 mOsm/kg (285-295); Sodium 138 mmol/L (136-145); Total Bilirubin 0.2 mg/dL (0.15-1.2); Total Protein 4.8 g/dL (6.6-8.7)
[2024-12-01] MEDS: VANCOMYCIN ADD-Vantage 1,000 MG in 0.9% NaCl ADD-Vantage 250 ML 250 MG IV ×2 (05:09→16:57)
[2024-12-01 05:13] LABS: Anion Gap 12.4 (5-19); Potassium 3.4 mmol/L (3.5-5.1)
[2024-12-01 06:35] LABS: Glucose Point of Care 184 mg/dL (70-110)
[2024-12-01] MEDS: albuterol 2.5 mg/3 mL Neb INHALATION (08:31)
[2024-12-01] MEDS: budesonide 0.5 mg/2 mL Neb INHALATION (08:31)
[2024-12-01] MEDS: enoxaparin 40 mg/0.4 mL Syringe SUBCUT (08:51)
[2024-12-01] MEDS: insulin lispro 100 unit/1 mL SUBCUT ×4 (08:51→21:29)
[2024-12-01] MEDS: docusate sodium 100 mg Capsule PO (08:52)
[2024-12-01] MEDS: digoxin 125 mcg Tablet PO (08:52)
[2024-12-01] MEDS: cyanocobalamin 1,000 mcg Tablet 1000 MCG PO (08:52)
[2024-12-01] MEDS: donepezil 5 MG Tablet PO (08:52)
[2024-12-01] MEDS: finasteride 5 mg Tablet PO (08:52)
[2024-12-01] MEDS: atorvastatin 40 mg Tablet 80 MG PO (08:52)
[2024-12-01] MEDS: pantoprazole 40 mg SDV IVP (08:54)
[2024-12-01 11:11] LABS: Glucose Point of Care 195 mg/dL (70-110)
--- NOTE | 2024-12-01 16:16 | PM.PN ---
Subjective Subjective: Patient was seen this morning, he denies any fevers, no chills, no cough, discussed the positive IV antibiotics for 6 weeks, he is in agreement, Vitals/I&O/Wt Last Vital Signs Temp 98.2 F 12/01/24 11:48 Pulse 80 12/01/24 11:48 Resp 19 H 12/01/24 11:48 BP 101/64 12/01/24 11:48 Pulse Ox 98 12/01/24 11:48 O2 Del Method Room Air 12/01/24 11:48 12/01/24 12/01/24 12/01/24 06:59 14:59 22:59 Intake Total 610 / 2070 480 / 480 Balance 610 / 1170 480 / 480 Weight last 48 hrs Weight 88.813 kg Weight 88.904 kg Physical Exam Const: COMMON NORMALS: no acute distress and patient oriented x3 Resp: COMMON NORMALS: normal respiratory effort, No retractions, No use of accessory muscles and clear to auscultation bilaterally AUSCULTATION: clear to auscultation bilaterally Cardio: COMMON NORMALS: regular rate, regular rhythm, S1 normal heart sound present and S2 normal heart sound present RATE: regular rate RHYTHM: regular rhythm HEART SOUNDS: S1 normal heart sound present and S2 normal heart sound present GI: COMMON NORMALS: Normal to inspection, nondistended, normoactive bowel sounds present and non-tender Extremity: COMMON NORMALS: no pedal edema Neuro: COMMON NORMALS: patient oriented x3 Psych: COMMON NORMALS: mental status grossly normal Data 12/01/24 04:35 12/01/24 04:35 Micro: Microbiology 11/26/24 02:51 Blood Culture - Final Blood NO GROWTH AFTER 5 DAYS 11/26/24 01:52 Blood Culture - Final Blood NO GROWTH AFTER 5 DAYS A&P Assessment and plan (1) Acute encephalopathy: (2) RAI (acute kidney injury): (3) Acidosis, lactic: (4) Complicated UTI (urinary tract infection): (5) Vertebral osteomyelitis: Plan Sepsis, resolved -Sepsis features met given evidence of urinary tract infection, elevated lactic acid, encephalopathy, leukocytosis -Source is likely UTI -However does have history of vertebral osteomyelitis, recurrent evidence seen on CT scan Complicated UTI -With history of bilateral nephrostomy tubes - CT/CT kidney stone [id number] IMPRESSION: 1. There is new stranding and induration about the pancreatic head concerning for pancreatitis and less likely duodenitis. Please correlate clinically. 2. There is new mild stranding in the right renal hilum. This may represent scarring versus inflammatory changes possibly from urinary tract infection. 3. Bladder appears contracted very small and is not well-visualized. This is not significantly changed. 4. 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 This is unchanged. 5. The rectum is moderately distended with retained stool. Please correlate clinically for impaction. Plan -Follow urine cultures showing Proteus species sensitive to Rocephin -Follow blood cultures, so far negative -De-escalate to Rocephin -Spoke to Dr. Cartwright nurse in [place], she will set up an appointment with senior care for patient to follow-up for change out of bilateral nephrostomy tubes Acute encephalopathy, resolving -Likely secondary UTI -Monitor mentation closely Elevated lactic acid, resolving -Likely from sepsis, History of vertebral osteomyelitis -Concerns for acute on chronic osteomyelitis -CT scan shows bone loss about the L3-L4 disc likely from chronic discitis osteomyelitis CT/CT lumbar spine wo con* [id number] IMPRESSION: 1. Findings concerning for discitis/osteomyelitis at L3-L4 with destructive endplate changes, Advanced degenerative lumbar disease is present with retrolisthesis, anterolisthesis, fusion, and severe stenosis at L3-L4. Consider lumbar MRI with and without contrast for further evaluation. 2. Incidental mild pancreatic head stranding concerning for acute pancreatitis; correlate with lipase levels to exclude acute pancreatitis. -MRI spine MR/MR lumbar spine wo/w con [id number] IMPRESSION: Possibility of infectious discitis at L3-L4 and posterior L4 osteomyelitis is not excluded with certainty. However, given very similar appearance of findings on CT exam of 11/26/[address] exam 5 months earlier on 06/22/2024, aggressive infection is highly unlikely. Indolent infection, or noninfectious etiology for spondylodiscitis should be considered. In the absence of a history of chronic renal failure/dialysis, consider CPPD spondyloarthropathy or chronically increased stress at the L3-L4 level resulting from L2-L3 ankylosis. -Sed rate 23 -Blood cultures -Broad-spectrum antibiotic therapy -Will need 6 weeks of IV vancomycin -Will need 6 weeks of IV Rocephin -PICC line placed -Reached out to Dr. Hood office to follow IV antibiotics, will await callback for confirmation versus infectious disease here at [facility] Atrial fibrillation, continue digoxin History of anemia, hematuria, not on anticoagulant therapy elevated troponins, serial EKGs, troponins, telemetry monitoring Full code Lovenox for DVT prophylaxis Plan for today IV antibiotics, arrange follow-up with specialist PDMP PDMP Reviewed: Not Reviewed Attestations Medical Necessity Statement*: Patient requires hospitalization for vertebral osteomyelitis, complicated UTI Diagnoses Acute encephalopathy G93.40 RAI (acute kidney injury) N17.9 Acidosis, lactic E87.2 Complicated UTI (urinary tract infection) N39.0 Vertebral osteomyelitis M46.20
[2024-12-01 16:27] LABS: Glucose Point of Care 195 mg/dL (70-110)
[2024-12-01] MEDS: cefTRIAXone 1,000 mg SDV 1000 MG IVP (16:57)
[2024-12-01 18:35] LABS: Vancomycin Trough 26.2 ug/mL (10-15)
[2024-12-01 20:54] LABS: Glucose Point of Care 244 mg/dL (70-110)
[2024-12-01] MEDS: tamsulosin 0.4 mg Capsule PO (21:29)
[2024-12-02] VITALS: BP 115/71; PULSE 70; RESP 17; TEMP 36.5; O2SAT 96
[2024-12-02 04:00] VITALS: BP 123/72; PULSE 68; RESP 18; TEMP 36.1; O2SAT 98
[2024-12-02 05:45] LABS: Basophils # 0.1 10^3/uL (0.0-0.1); Basophils % 0.5 %; Eosinophils # 0.5 10^3/uL (0.0-0.8); Eosinophils % 3.5 %; Hematocrit 30.1 % (37-53); Lymphocytes # 2.2 10^3/uL (0.8-4.8); Lymphocytes % 17.2 %; Mean Corpuscular HGB Conc 31.6 g/dL (30-55); Mean Corpuscular Hemoglobin 27.8 pg (27-33); Mean Platelet Volume 9.4 fL (7.4-10.4); Monocytes % 7.3 %; Neutrophils # 9.22 10^3/uL (1.8-7.7); Neutrophils % 70.9 %; Nucleated Red Blood Cells % 0 %; Platelet Count 278 10^3/cmm (157-399); Red Blood Count 3.42 10^6/uL (3.85-5.65); Red Cell Distribution Width 17.3 % (12.1-15.1); White Blood Count 13.01 10^3/uL (3.29-11.43)
[2024-12-02 06:00] VITALS: BMI 29.9
[2024-12-02 06:19] LABS: Vancomycin Trough 23.5 ug/mL (10-15)
[2024-12-02 06:21] LABS: Alanine Aminotransferase < 5 U/L (0-41); Albumin Level 2.6 g/dL (3.5-5.2); Alkaline Phosphatase 92 U/L (40-130); Anion Gap 13.4 (5-19); Aspartate Amino Transferase 11 U/L (0-40); Blood Urea Nitrogen 9 mg/dL (8-23); Calcium 7.9 mg/dL (8.5-10.5); Carbon Dioxide 22 mmol/L (22-29); Chloride 106 mmol/L (98-107); Creatinine Clr Calc Pharmacy 86.7244; Globulin 2.3 g/dL (1.3-4.6); Glucose 177 mg/dL (65-115); Osmolality Calculated 289 mOsm/kg (285-295); Potassium 3.4 mmol/L (3.5-5.1); Sodium 138 mmol/L (136-145); Total Bilirubin 0.2 mg/dL (0.15-1.2); Total Protein 4.9 g/dL (6.6-8.7)
[2024-12-02 06:32] LABS: Glucose Point of Care 184 mg/dL (70-110)
[2024-12-02] MEDS: insulin lispro 100 unit/1 mL SUBCUT ×2 (08:06→11:35)
[2024-12-02] MEDS: pantoprazole 40 mg SDV IVP (08:06)
[2024-12-02] MEDS: docusate sodium 100 mg Capsule PO (08:07)
[2024-12-02] MEDS: digoxin 125 mcg Tablet PO (08:07)
[2024-12-02] MEDS: donepezil 5 MG Tablet PO (08:07)
[2024-12-02] MEDS: cyanocobalamin 1,000 mcg Tablet 1000 MCG PO (08:07)
[2024-12-02] MEDS: atorvastatin 40 mg Tablet 80 MG PO (08:07)
[2024-12-02] MEDS: finasteride 5 mg Tablet PO (08:07)
[2024-12-02] MEDS: enoxaparin 40 mg/0.4 mL Syringe SUBCUT (08:08)
[2024-12-02] MEDS: HYDROMORPHONE HCL 0.5 MG/0.5 ML INJ 1 MG IVP (08:28)
[2024-12-02 08:29] VITALS: BP 115/74; PULSE 74; RESP 18; TEMP 36.5; O2SAT 97
--- NOTE | 2024-12-02 10:22 | PC.SOCIAL ---
IMM Update pg 2 of IMM updated and reviewed w/ patient. Copy provided and copy dated, initialed and placed in chart.
[2024-12-02 10:57] LABS: Glucose Point of Care 173 mg/dL (70-110)
--- NOTE | 2024-12-02 11:06 | PM.DCS ---
Discharge Providers Date of Admission: 11/26/24 07:31 Date of Discharge: December 02, 2024 Attending Provider at Admission: Omari Lopez MD Attending Provider at Discharge: Omari Lopez MD Primary Care Provider: Trisha Urena MD Diagnoses at Discharge Discharge Diagnosis (1) Acute encephalopathy: Status: Resolved (2) RAI (acute kidney injury): Status: Acute (3) Acidosis, lactic: Status: Resolved (4) Complicated UTI (urinary tract infection): Status: Acute (5) Vertebral osteomyelitis: Status: Acute Reason for Visit Reason for Visit: AMS, confusion Hospital Course Hospital Course Raphael Deal is a 74 year old male with a past medical history of bilateral nephrostomy tubes, history of recurrent UTIs, type 2 diabetes, history of atrial fibrillation not on anticoagulant therapy, due to history of hematuria/bleeding, history of vertebral osteomyelitis, who presents [facility] for altered mental status. Currently patient is alert to person, not to place, not to time, can follow commands at times but is easily confused. His only complaint is abdominal pain Patient was admitted to [facility] for sepsis multifactorial from UTI, acute osteomyelitis, For his encephalopathy, resolved on discharge For his complicated UTI, with history of bilateral nephrostomy tubes, is receiving antibiotic therapy as inpatient, will receive antibiotic therapy as outpatient, follow-up with Dr. Cartwright in [place] for exchange of nephrostomy tubes. I have reached out to Dr. Cartwright's team, who will be in touch with patient's longterm to arrange follow-up For his history of vertebral osteomyelitis, with a history of osteomyelitis in the past, he was managed with broad-spectrum antibiotic therapy MRI performed, orthopedic service was consulted. Patient will be managed with 6 weeks of IV vancomycin, IV Rocephin, discharged to shelter facility, follow-up with Dr. Man infectious disease in [place]. I spoke to Dr. Man's team in [place], will have patient follow-up Atrial fibrillation continue digoxin History of anemia, thrombocytopenia, not on anticoagulant therapy. Discussed with patient has increased risk of hypercoagulable events, continue mobility at shelter facility Physical Exam Const: COMMON NORMALS: no acute distress and patient oriented x3 Resp: COMMON NORMALS: normal respiratory effort, No retractions, No use of accessory muscles and clear to auscultation bilaterally AUSCULTATION: clear to auscultation bilaterally Cardio: COMMON NORMALS: regular rate, regular rhythm, S1 normal heart sound present and S2 normal heart sound present RATE: regular rate RHYTHM: regular rhythm HEART SOUNDS: S1 normal heart sound present and S2 normal heart sound present GI: COMMON NORMALS: Normal to inspection, nondistended, normoactive bowel sounds present and non-tender Extremity: COMMON NORMALS: no pedal edema Neuro: COMMON NORMALS: patient oriented x3 Psych: COMMON NORMALS: mental status grossly normal Discharge Data Studies Completed and Pending Completed Studies During Hospitalization Category Date Time Status CT abdomen renal stone [CT kidney stone [id number]] Stat Cat Scan 11/26/24 04:[address] lumbar spine wo con* [id number] Routine Cat Scan 11/26/24 12:15 Completed CXRP [XR chest 1V portable [id number]] Routine Exams 11/30/24 11:55 Completed XR chest 1V portable [id number] Stat Exams 11/25/24 22:20 Completed MR lumbar spine wo/w con [id number] Routine MRI 11/27/24 11:00 Completed Pending at discharge Category Date Time Status SARS Covid-2 Antigen Routine Lab 12/02/24 10:36 Uncollected Radiology Impressions Abdomen/Pelvis CT 11/26/24 04:57 IMPRESSION: 1. There is new stranding and induration about the pancreatic head concerning for pancreatitis and less likely duodenitis. Please correlate clinically. 2. There is new mild stranding in the right renal hilum. This may represent scarring versus inflammatory changes possibly from urinary tract infection. 3. Bladder appears contracted very small and is not well-visualized. This is not significantly changed. 4. 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 This is unchanged. 5. The rectum is moderately distended with retained stool. Please correlate clinically for impaction. Lumbar Spine CT 11/26/24 12:15 IMPRESSION: 1. Findings concerning for discitis/osteomyelitis at L3-L4 with destructive endplate changes, Advanced degenerative lumbar disease is present with retrolisthesis, anterolisthesis, fusion, and severe stenosis at L3-L4. Consider lumbar MRI with and without contrast for further evaluation. 2. Incidental mild pancreatic head stranding concerning for acute pancreatitis; correlate with lipase levels to exclude acute pancreatitis. Lumbar Spine MRI 11/27/24 11:00 IMPRESSION: Possibility of infectious discitis at L3-L4 and posterior L4 osteomyelitis is not excluded with certainty. However, given very similar appearance of findings on CT exam of 11/26/[address] exam 5 months earlier on 06/22/2024, aggressive infection is highly unlikely. Indolent infection, or noninfectious etiology for spondylodiscitis should be considered. In the absence of a history of chronic renal failure/dialysis, consider CPPD spondyloarthropathy or chronically increased stress at the L3-L4 level resulting from L2-L3 ankylosis. Chest X-Ray 11/30/24 11:55 Impression: Satisfactory insertion of right PICC line. Laboratory Results WBC 13.01 10^3/uL (3.29-11.43) H 12/02/24 05:16 Corrected WBC Cancelled 11/25/24 00:14 RBC 3.42 10^6/uL (3.85-5.65) L 12/02/24 05:16 Hgb 9.50 g/dL (11.27-16.99) L 12/02/24 05:16 Hct 30.1 % (37-53) L 12/02/24 05:16 MCV 88.0 fl (82-101) 12/02/24 05:16 MCH 27.8 pg (27-33) 12/02/24 05:16 MCHC 31.6 g/dL (30-55) 12/02/24 05:16 RDW 17.3 % (12.1-15.1) H 12/02/24 05:16 Plt Count 278 10^3/cmm (157-399) 12/02/24 05:16 MPV 9.4 fL (7.4-10.4) 12/02/24 05:16 Gran % Cancelled 11/25/24 00:14 Neut % (Auto) 70.9 % 12/02/24 05:16 Lymph % (Auto) 17.2 % 12/02/24 05:16 Garfield % (Auto) 7.3 % 12/02/24 05:16 Eos % (Auto) 3.5 % 12/02/24 05:16 Baso % (Auto) 0.5 % 12/02/24 05:16 Neut # (Auto) 9.22 10^3/uL (1.8-7.7) H 12/02/24 05:16 Lymph # (Auto) 2.2 10^3/uL (0.8-4.8) 12/02/24 05:16 Garfield # (Auto) 1.0 10^3/uL (0.2-0.9) H 12/02/24 05:16 Eos # (Auto) 0.5 10^3/uL (0.0-0.8) 12/02/24 05:16 Baso # (Auto) 0.1 10^3/uL (0.0-0.1) 12/02/24 05:16 Absolute Gran (auto) Cancelled 11/25/24 00:14 Nucleated RBC % (auto) 0 % 12/02/24 05:16 Nucleated RBCs # 0.0 /100WBC 12/02/24 05:16 ESR 23 mm/hr (0-10) H 11/26/24 00:14 Sodium 138 mmol/L (136-145) 12/02/24 05:16 Potassium 3.4 mmol/L (3.5-5.1) L 12/02/24 05:16 Chloride 106 mmol/L (98-107) 12/02/24 05:16 Carbon Dioxide 22 mmol/L (22-29) 12/02/24 05:16 Anion Gap 13.4 (5-19) 12/02/24 05:16 BUN 9 mg/dL (8-23) 12/02/24 05:16 Creatinine 0.7 mg/dL (0.7-1.2) 12/02/24 05:16 GFR Calculation Not Reportable 12/02/24 05:16 Glucose 177 mg/dL (65-115) H 12/02/24 05:16 POC Glucose 173 mg/dL (70-110) H 12/02/24 10:49 Estimat Average Glucose 203 11/26/24 00:14 Hemoglobin A1c 8.7 % (4.0-6.0) H 11/26/24 00:14 Calculated Osmolality 289 mOsm/kg (285-295) 12/02/24 05:16 Lactic Acid 5.0 mmol/L (0.5-2.2) H* 11/26/24 00:14 Lactic Acid (Sepsis) 2.9 mmol/L (0.5-2.2) H 11/26/24 02:51 Lactate 1.3 mmol/L (0.5-2.2) 11/26/24 16:59 Calcium 7.9 mg/dL (8.5-10.5) L 12/02/24 05:16 Phosphorus 2.6 mg/dL (2.5-4.5) 11/29/24 04:36 Magnesium 1.6 mg/dL (1.7-2.3) L 11/29/24 04:36 Total Bilirubin 0.2 mg/dL (0.15-1.2) 12/02/24 05:16 AST 11 U/L (0-40) 12/02/24 05:16 ALT < 5 U/L (0-41) 12/02/24 05:16 Alkaline Phosphatase 92 U/L (40-130) 12/02/24 05:16 Troponin T Baseline 83 ng/L (0-15) H 11/26/24 00:14 Troponin T 120 Minute 81.79 ng/L (0-15) H 11/26/24 02:51 Delta Troponin T -1.21 ABS# (0-10) L 11/26/24 02:51 Troponin T Hi Sens 6Hr 74.06 ng/L (0-15) H 11/26/24 07:31 Troponin T Hi Sens 6Hr Delta -8.94 ng/L (0-12) L 11/26/24 07:31 C-Reactive Protein 122.0 mg/L (0.0-4.9) H 11/26/24 07:31 NT-Pro-B Natriuret Pep 5482 pg/mL (0-450) H 11/27/24 04:13 Total Protein 4.9 g/dL (6.6-8.7) L 12/02/24 05:16 Albumin 2.6 g/dL (3.5-5.2) L 12/02/24 05:16 Globulin 2.3 g/dL (1.3-4.6) 12/02/24 05:16 Triglycerides 165 mg/dL (0-150) H 11/26/24 07:31 Cholesterol 98 mg/dL (0-200) 11/26/24 07:31 LDL Cholesterol, Calc 32 mg/dL (50-129) L 11/26/24 07:31 HDL Cholesterol 33 mg/dL (60-100) L 11/26/24 07:31 LDL/HDL Ratio 0.97 RATIO (0.00-3.22) 11/26/24 07:31 Cholesterol/HDL Ratio 2.97 mg/dL (1.0-5.00) 11/26/24 07:31 Lipase 18 U/L (13-60) 11/27/24 04:13 Procalcitonin 0.40 ng/mL (0-0.5) 11/26/24 07: TSH 1.17 uIU/mL (0.27-4.20) 11/26/24 07:31 Urine Color Yellow (Yellow) 11/26/24 03:38 Urine Appearance Turbid (CLEAR) A 11/26/24 03:38 Urine pH 8.0 (5-7) A 11/26/24 03:38 Ur Specific [place] 1.019 (1.005-1.030) 11/26/24 03:38 Urine Protein 3+ (Negative) A 11/26/24 03:38 Urine Glucose (UA) Negative (Normal) 11/26/24 03:38 Urine Ketones Trace (Negative) 11/26/24 03:38 Urine Blood 2+ (Negative) A 11/26/24 03:38 Urine Nitrate Negative (Negative) 11/26/24 03:38 Urine Bilirubin Negative (Negative) 11/26/24 03:38 Urine Urobilinogen 1.0 mg/dL (Negative) 11/26/24 03:38 Ur Leukocyte Esterase 3+ (Negative) A 11/26/24 03:38 Urine RBC >100 /hpf (0-2) H 11/26/24 03:38 Urine WBC Too numerous to cnt /hpf (0-5) H 11/26/24 03:38 Ur Squamous Epith Cells 0-4 /hpf (0-5) H 11/26/24 03:38 Amorphous Sediment Not Reportable 11/26/24 03:38 Urine Bacteria 1+ /hpf (NONE) H 11/26/24 03:38 Vancomycin Trough 23.5 ug/mL (10-15) H 12/02/24 05:16 Influenza A (PCR) Negative (Negative) 11/25/24 23:03 Influenza Type B (PCR) Negative (Negative) 11/25/24 23:03 RSV (PCR) Negative (Negative) 11/25/24 23:03 SARS-CoV-2 (PCR) Negative (Negative) 11/25/24 23:03 Vitals Last Vital Signs Temp 97.7 F 12/02/24 08:29 Pulse 74 12/02/24 08:29 Resp 18 12/02/24 08:29 BP 115/74 12/02/24 08:29 Pulse Ox 97 12/02/24 08:29 O2 Del Method Room Air 12/02/24 08:29 Discharge Plan Discharge Patient Disposition: Xfer SNF Condition: Stable Prescriptions: New ceftriaxone 1 gram recon soln 1 g IV DAILY 42 Days Rx Instructions: stop 01/10/2025 vancomycin 1,000 mg recon soln 1,000 mg IV Q18H 42 Days Qty: 10 0RF Continued (DME) Dexcom G7 Sensor Device See Rx Instructions .Route Qty: 3 1RF Rx Instructions: As directed (DME) Dexcom G7 Director Speech And Hearing Misc See Rx Instructions .Route Qty: 1 0RF Rx Instructions: As directed (DME) FreeStyle Jimi 2 [place] Misc See Rx Instructions .Route Qty: 1 0RF Rx Instructions: As directed (DME) FreeStyle Jimi 2 Sensor Kit See Rx Instructions .ROUTE .MEDSUPPLY Qty: 6 1RF Rx Instructions: change every 14 days fluticasone propion-salmeterol [Wixela Inhub] 100-50 mcg/dose Blister With Device 1 inh INHALATION BID bisacodyl [Dulcolax (bisacodyl)] 10 mg Suppository 10 mg WI DAILY PRN (Reason: Constipation) Rx Instructions: if no bm x 3 days acetaminophen [Tylenol] 325 mg Tablet 650 mg PO Q6H PRN (Reason: Pain) docusate sodium [Colace] 100 mg Capsule 100 mg PO BID furosemide 20 mg tablet 20 mg PO DAILY albuterol sulfate 90 mcg/actuation HFA aerosol inhaler 2 puff INHALATION Q4H PRN (Reason: Dyspnea) magnesium hydroxide [Milk of Magnesia] 400 mg/5 mL suspension 20 ml PO BID PRN (Reason: constipation) Qty: 355 0RF atorvastatin 80 mg tablet 80 mg PO DAILY donepezil 5 mg tablet 5 mg PO DAILY dextromethorphan-guaifenesin 10-100 mg/5 mL liquid 5 - 10 ml PO Q6H PRN (Reason: Congestion) cyanocobalamin (vitamin B-12) 1,000 mcg tablet 1,000 mcg PO DAILY hydrocodone-acetaminophen 7.5-325 mg tablet 1 tab PO Q4H PRN (Reason: Pain) ferrous sulfate [FeroSul] 325 mg (65 mg iron) tablet 325 mg PO DAILY digoxin 125 mcg (0.125 mg) tablet 125 mcg PO DAILY fluticasone propionate 50 mcg/actuation spray,suspension 1 spray INTRANASAL DAILY finasteride 5 mg tablet 5 mg PO DAILY insulin lispro 100 unit/mL insulin pen See Rx Instructions .ROUTE .COMPLEX Rx Instructions: Per sliding scale; Before meals and at bedtime ;if blood sugar is less than 60 call md; 201-250 give 2 units ;251-300 =4units ; [id number] ;350-400 =8units cholecalciferol (vitamin D3) 25 mcg (1,000 unit) tablet 25 mcg PO DAILY multivitamin with folic acid [Daily-Marylou (with folic acid)] 400 mcg tablet 1 tab PO DAILY silver sulfadiazine 1 % cream See Rx Instructions .ROUTE .COMPLEX Rx Instructions: apply to right buttock open area at every shift . metformin 500 mg tablet 500 mg PO DAILY ondansetron HCl [Zofran] 4 mg Tablet 4 mg PO .BEFORE MEALS PRN (Reason: Nausea And Vomiting) tamsulosin 0.4 mg capsule 0.4 mg PO BEDTIME omeprazole 20 mg capsule,delayed release(DR/EC) 20 mg PO DAILY melatonin 1 mg tablet 1 mg PO DAILY PRN (Reason: Sleep) Changed insulin glargine [Lantus Solostar U-100 Insulin] 100 unit/mL (3 mL) insulin pen 5 unit SUBCUT DAILY Qty: 15 0RF Discontinued metoprolol tartrate 25 mg tablet 25 mg PO BID Discharge Orders: Discharge Order (Routine); Ordered 12/02/24 Ordered By: Omari Lopez Referrals: [facility] [Outside] Trisha Urena MD [Primary Care Provider] - Frankie Hendrix MD [Referring] - (Dr Lopez had spoke to Dr Hendrix who agreed to change patients nephrostomy tubes next week. Patient is a resident at [facility]. Phone number to facility is [phone] and address is [address] [place] [address] [place] [address]. If there is anything you need from us please call [phone] or fax [phone].) John Man [Referring] - 1-3 days (discitis) Discharge Diet: Cardiac Discharge Activity: Resume usual activity Patient Instructions: Altered Mental Status (ED), Opioid Safety Activity Restrictions/Additional Instructions: - Follow-up with Dr. Man in [place] in 1 to 3 days -Follow-up with Dr. Cartwright next week for change out of bilateral nephrostomy tubes -Weekly CBC, CMP, bank trough -Rocephin 1 g IV every 24 hours for total of 6 weeks, stop date 01/10/2025 -Vancomycin 1 g IV every 18 hours for total 6 weeks, stop date 01/10/2025, dosing based upon vancomycin trough -Remove PICC line after patient has completed IV antibiotics Discharge Attestations Time Spent in Discharge Care*: greater than 30 min Status at Discharge: Cognitive status at discharge: cognitively intact, Behavioral status at discharge: cooperative, Quality Metrics Clinical Quality Measures [ No reported AMI, CVA or VTE this stay] Coding Level of Care Code 10897 Total time (in minutes) for Discharge: 45 Diagnoses Acute encephalopathy G93.40 RAI (acute kidney injury) N17.9 Acidosis, lactic E87.2 Complicated UTI (urinary tract infection) N39.0 Vertebral osteomyelitis M46.20
[2024-12-02 11:59] LABS: SARS Covid-2 Antigen Negative (Negative)
[2024-12-02 12:06] VITALS: BP 106/72; PULSE 74; RESP 18; TEMP 36.5; O2SAT 97
--- NOTE | 2024-12-02 12:32 | PC.NURSE ---
Report called to Yoselin at [facility]. PCS form completed.
--- NOTE | 2024-12-02 13:56 | PC.NURSE ---
[facility] notified of need of ride.
[2024-12-02 14:43] VITALS: BP 106/72; PULSE 74; RESP 18; TEMP 36.5; O2SAT 97
== END 2024-12-02 14:44 | disposition skilled nursing facility (03) | DRG 872 ==
LOC: ER 11-26 06:18 → ER IP 11-26 08:26 → MEDSURG 11-26 18:43
PROVIDERS: Emergency Medicine; Admitting Provider Family Medicine; Emergency Provider Family Medicine; PCP Family Medicine; Visit Provider Family Medicine
DX: A41.9 Sepsis, unspecified organism (principal); N39.0 Urinary tract infection, site not specified; N17.9 Acute kidney failure, unspecified; E87.20 Acidosis, unspecified; M46.26 Osteomyelitis of vertebra, lumbar region; M86.9 Osteomyelitis, unspecified; G93.40 Encephalopathy, unspecified; R65.20 Severe sepsis without septic shock; E11.69 Type 2 diabetes mellitus with other specified complication; Z79.4 Long term (current) use of insulin; Z79.84 Long term (current) use of oral hypoglycemic drugs; I48.91 Unspecified atrial fibrillation; I10 Essential (primary) hypertension; G47.33 Obstructive sleep apnea (adult) (pediatric); N40.0 Benign prostatic hyperplasia without lower urinary tract symptoms; G30.9 Alzheimer's disease, unspecified; F02.80 Dementia in other diseases classified elsewhere, unspecified severity, without behavioral disturbance, psychotic disturbance, mood disturbance, and anxiety; M48.062 Spinal stenosis, lumbar region with neurogenic claudication; R79.89 Other specified abnormal findings of blood chemistry; Z87.440 Personal history of urinary (tract) infections; Z93.6 Other artificial openings of urinary tract status
CPT/HCPCS: 36415; 36416; 36573; 36592; 51701; 71045; 72131; 72158; 74176; 80048; 80053; 80061; 80202; 81001; 82962; 83036; 83605; 83690; 83735; 83880; 84100; 84145; 84443; 84484; 85025; 85651; 86140; 87040; 87077; 87086; 87186; 87426; 87637; 92507; 92523; 92526; 92610; 93005; 94640; 94664; 96372; 99285; J0696; J1171; J1650; J1815; J2020; J2270; J2405; J2470; J2543; J3370; J3372; J7030; J7050; J7120; J7613; J7626

== ENCOUNTER → 2025-02-24 09:15 | Outpatient (BNVA) | payer OTHER, SELFPAY | PROVIDERS: PCP Family Medicine; Visit Provider Nurse Practitioner Family | DX: I48.0 Paroxysmal atrial fibrillation (principal); I10 Essential (primary) hypertension | CPT/HCPCS: 99213 ==

== ENCOUNTER 2025-03-02 12:09 | Outpatient (CLI) | payer OTHER, SELFPAY ==
--- NOTE | 2025-03-02 12:17 | CTR_ITS ---
PROCEDURE INFORMATION: Exam: CT Abdomen And Pelvis Without And With Contrast Exam date and time: 03/02/2025 12:42 PM Age: 75 years old Clinical indication: Abdominal pain; Prior surgery; Surgery date: 6+ months; Surgery type: Appy, bilateral nephrostomy; HX of prostate cancer, generalized abd pain and bloating TECHNIQUE: Imaging protocol: Computed tomography of the abdomen and pelvis without and with contrast. 3D rendering (Not supervised by radiologist): MIP and/or 3D reconstructed images were created by the technologist. Radiation optimization: All CT scans at this facility use at least one of these dose optimization techniques: automated exposure control; mA and/or kV adjustment per patient size (includes targeted exams where dose is matched to clinical indication); or iterative reconstruction. Contrast material: OMNI 350; Contrast volume: 100 ml; Contrast route: INTRAVENOUS (IV); COMPARISON: CT kidney stone [id number] 11/26/2024 5:49 AM RADIATION DOSE METRICS: Total DLP (mGy-cm): 1795.35 FINDINGS: Tubes, catheters and devices: Bilateral percutaneous nephrostomy drains are stable in position. Stable mild bilateral hydroureteronephrosis. Stable persistent mild inflammation around the right renal pelvis concerning for right pyelitis. Lungs: Visualized lungs are clear. Pleural spaces: No pleural effusion. Heart: Stable small pericardial effusion. Stable mild enlargement of the visualized portions of the heart. Coronary arteries: Stable moderate atherosclerotic calcification in the visualized coronary arteries. Liver: Single calcified granuloma in the liver. Gallbladder and biliary ducts: Multiple stones in the gallbladder. Findings are stable. No gallbladder wall thickening. No biliary ductal dilatation. Pancreas: The pancreas is unremarkable. No pancreatic ductal dilatation. Spleen: The spleen is unremarkable. Adrenal glands: The right and left adrenal glands are unremarkable. Kidneys and ureters: Stable non-obstructing stone in the right kidney measuring 2.9 mm. Subcentimeter hypodense foci in both right and left kidneys that are too small to characterize, however likely represent small cysts. 1.2 x 1.1 cm enhancing focus at the lower pole of the right kidney is stable in size compared with 05/15/2024 (series 8, image 47). Stomach and bowel: Numerous diverticula in the sigmoid colon. No evidence for diverticulitis. No acute abnormality in the stomach. No acute abnormality in the small bowel. Stable wall thickening with surrounding inflammation involving the rectum suspicious for colitis. Appendix: The appendix is visualized and is unremarkable. No findings to suggest acute appendicitis. Intraperitoneal space: No free intraperitoneal air. No ascites. No loculated fluid collections to suggest an abscess. Vasculature: No evidence for aortic aneurysm or aortic dissection. Moderate atherosclerotic changes in the visualized arteries. Hepatic veins are poorly opacified and not well-visualized. Portal veins, splenic vein, and SMV are patent. Lymph nodes: No lymphadenopathy. Urinary bladder: The bladder is unremarkable for the degree of distension. Reproductive: The prostate gland is mildly enlarged. Bones/joints: Stable marked changes in the spine, sacroiliac joints, and hips with grade 1 retrolisthesis of L2 on L3 and grade 1 anterolisthesis of L4 on L5.. Stable destructive endplate changes at L3-L4 suspicious for discitis/osteomyelitis. Soft tissues: Mild body wall edema. CT/CT abdomen pelvis wo/w [id number] IMPRESSION: 1. Bilateral percutaneous nephrostomy drains are stable in position. Stable mild bilateral hydroureteronephrosis. Stable persistent mild inflammation around the right renal pelvis concerning for right pyelitis. 2. Stable destructive endplate changes at L3-L4 suspicious for discitis/osteomyelitis. 3. Stable wall thickening with surrounding inflammation involving the rectum suspicious for colitis. 4. Stable small pericardial effusion. 5. Stable cholelithiasis. 6. Stable nonobstructing right renal stone. 7. 1.2 x 1.1 cm enhancing focus at the lower pole of the right kidney is stable in size compared with 05/15/2024. Recommend further evaluation with prompt nonemergent MRI of the kidneys without and with contrast, if the patient has no contraindication 2 MRI. 8. Sigmoid diverticulosis. No evidence for diverticulitis. 9. Mild body wall edema. 10. Incidental/nonacute findings are listed in the report. COMMENTS: Consistent with the [place] [employer]'s Incidental Findings Committee white paper (J Am Kevin Radiol 2018): Any incidental renal lesion less than 1 cm or classified as too small to characterize, or any incidental cystic renal lesion characterized as simple-appearing, is likely benign. No follow-up imaging is recommended for these lesions per consensus recommendations based on imaging criteria.
[2025-03-02] MEDS: iohexol 350 mg/mL 500 mL Btl (per mL) IV (12:49)
[2025-03-02 15:06] LABS: Blood Urea Nitrogen 13 mg/dL (8-23)
== END 2025-03-02 12:10 | disposition home or self-care (01) ==
PROVIDERS: Radiology Neuroradiology; PCP Family Medicine; Visit Provider Nurse Practitioner Family
DX: I48.0 Paroxysmal atrial fibrillation (principal); I31.39 Other pericardial effusion (noninflammatory); K80.20 Calculus of gallbladder without cholecystitis without obstruction; N20.0 Calculus of kidney; K57.30 Diverticulosis of large intestine without perforation or abscess without bleeding
CPT/HCPCS: 74178; 82565; 84520

== ENCOUNTER 2025-04-10 15:07 | Emergency (ER) | payer OTHER, SELFPAY ==
--- OUTSIDE RECORDS SUMMARY | 2025-03-22 05:00 | XMS_ITS ---
Author Organization [facility] Address [address] [place] [address] Care Team Providers Care Help Desk Rep Name Role Phone Vinnie Garcia DO Primary Care Provider UnavailFrankie Gaines Unavailable [phone] Ila Fischer Unavailable REASON FOR VISIT 3m f/u w Christelle Encounters Encounter Location Date Provider Diagnosis [facility] [address] [place] [address] [facility] [address] [place] [address] 03/22/2025 Ila Fischer Plan Of Treatment Next Appt Details Provider Name:Ila Godwin, 06/28/2025 02:10:00 PM, [address] , [facility] 100, [place], [address], Progress Notes * WISAMRaphael ALMENDAREZDOB:[birth year] (75 yo M)Acc No.[id number]:03/22/2025 Progress Notes Patient: Raphael BANKS Provider: WALT Rod :1950 A ge:75 Y S ex:Male Date:03/22/2025 Address:[address], [id number] Pcp:Vinnie Garcia DO Subjective: * Chief Complaints: * 1 . 3m f/u w Christelle. * HPI: P tom Note: 74 year old male who presents to the clinic for follow up Last seen in December [address] 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 He was referred to [facility]. He was told he was not medically [...] nephrostomy tube exchange with interventional radiology at [facility]. He was to have CBC, CMP, [...] hospital and will be added to visit. * Medical History: Objective: * Vitals: Assessment: Plan: * Treatment: * Billing Information: * Visit Code: * Procedure Codes: * Electronic signature of WALT Wall on 04/10/2025 at 03:16 PM CDT Sign off status: Pending * Provider: WALT Rod Date: 03/22/2025 Generated for Nai López/Yann on: 04/10/2025 03:16 PM CDT History and Physical Notes * HPI (History [...] June 13, 2024. He was referred to [facility]. He was told he was not medically [...] nephrostomy tube exchange with interventional radiology at [facility]. He was to have CBC, CMP, [...]
[2025-04-10 15:16] VITALS: TEMP 36.7; BMI 27.3
--- OUTSIDE RECORDS SUMMARY | 2025-04-10 15:16 | XMS_ITS | Patient Health Record ---
Author Organization [facility] Address [address] [place] [address] Care Team Providers Care Scientific Database Curator Name Role Phone Vinnie Garcia DO Primary Care Provider Unavaila Frankie Devi Unavailable [phone] Migration, Provider Unavailable Unavailable John Man JR Unavailable [phone] Nury Flores Unavailable [phone] Ila Fischer Unavailable [phone] Allergies Allergen (clinical drug ingredient) Drug/Non Drug Allergy documented on EMR Reaction Allergy Type Onset Date Status atorvastatin Lipitor Unknown Drug Allergy Acti ve pravastatin Pravachol Unknown Drug Allergy Activ e gemfibrozil Gemfibrozil Unknown Drug Allergy Act arsenio pravastatin Pravastatin Unknown Drug Allergy Act arsenio Results Component Value Reference Range Notes Culture Urine [id number] Reviewed date:05/30/2024 07:43:36 AM Interpretation: Performing Lab: Notes/Report: Culture Urine AYUSH Kelly AEL D Culture Urine t: Culture Urine Culture Urine Access [id number] Culture Urine n: Culture Urine Microbiology Culture Urine PROCEDURE: Culture Urine [] Culture Urine SOURCE: Urine BODY SITE: Kidney L Culture Urine COLLECTED DATE/TIME: 05/26/2024 13:01 CDT RECEIVED DATE/TIME: 05/26/2024 19:36 CDT Culture Urine START DATE/TIME: 05/26/2024 19:36 CDT FREE TEXT SOURCE: l kidney nephrastomy Culture Urine tube Culture Urine FINAL REPORT Culture Urine Final Report [] Culture Urine Verified Date/Time: 05/28/2024 05:11 CDT Culture Urine > 10,000 cfu/ml mixe d superficial negrito Culture Urine Multiple microorgani sms present Culture Urine Probable contamination UA W/O Microscopic [id number] Reviewed date:05/26/2024 11:37:35 AM Interpretation: Performing Lab: Notes/Report: Color UA red Clarity UA poor Specific gravity UA 1.025 Urine pH 6.0 Urine Glucose 0 Urine Bilirubin 0 Urine Ketone 0 Urine Blood 3+ Urine Protein 3+ Urobilinogen 0 Urine Nitrite + Urine Leukocyte 3+ CBC w\ Auto Diff [id number] Reviewed date:01/26/2025 02:23:47 PM Interpretation: Performing Lab: Notes/Report: Diagnosis Description: Tubulo-interstitial nephritis, not specified as acute or chronic WBC 10.3 4.5-11.0 X10'3 RBC 4.23 4.50-5.90 X10'6 Hgb 12.0 13.5-17.5 G/DL Hct 39.1 41.0-53.0 % MCV 92.4 80.0-100.0 FL MCH 28.4 27.0-31.0 PG MCHC 30.7 31.0-37.0 G/DL Platelet 365 150-400 X10'3 RDW-SD 56.7 35.0-49.0 FL RDW-CV 16.6 12.2-15.6 % MPV 10.9 9.2-12.0 FL Neutro Auto% 64.9 40.0-70.0 % Lymph Auto% 23.9 22.0-44.0 % Winn Auto% 6.4 3.0-7.0 % Eos Auto% 3.7 2.0-4.0 % Baso Auto% 0.8 0.0-1.0 % Imm Gran% .3 .0-.4 % Neutro Abs 6.70 .80-7.70 Absolute Neutrophil Count 6700 Lymph Abs 2.47 .10-4.10 Winn Abs .66 .20-1.00 Eos Abs .38 .00-.40 Baso Abs .08 .00-.20 Imm Gran Abs .03 .00-.10 NRBC# .00 .00-.20 NRBC% .00 .00-.20 /100 intact WBC's Comprehensive Metabolic Pane l (CMP) [id number] Reviewed date:01/26/2025 02:23:47 PM Interpretation: Performing Lab: Notes/Report: Diagnosis Description: Tubulo-interstitial nephritis, not specified as acute or chronic Glucose Serum 280 71-110 MG/DL Testing perfor med at [facility], [address] [place] [address] [place] [address]. CLIA ID#: [id number] BUN 14 7-21 MG/DL Creat .77 .57-1.17 MG/DL E-ohxukd-l-benzoquino ne imine (NAPQI) is a metabolite of acetaminophen, NAPQI concentrations of apparoximately 10 mg/L correlation to toxic levels of acetaminophen demonstrates a greater than or equil to 10% change in results. NAPQI concentrations greater than this may lead to falsely depressed results for patient samples. Use of this assay is not recommended for patients undergoing treatment with phenindione, due to the potential for falsely depressed results. GFR 92.7 Calculation per formed from GFR calculator provided by the National Kid[employer]. Glomerular Filtration rate(GRF) is the best overall index of kidney function. Normal GFR varies according to age,sex, body size, and declines with age. The National Kidney Foundation recommends using the CKD-EPI Creatinine Equation(2020) to estimate GFR. BUN/Creat Ratio 18.2 12.0-20.0 % Total Protein 6.0 5.8-8.0 G/DL Albumin 3.6 3.2-4.8 G/DL Globulin 2.4 2.3-3.5 G/DL Alb/Glob 1.5 0.8-2.2 Calcium 8.8 8.7-10.4 MG/DL Sodium 142 136-145 MMOL/L Potassium 2.5 3.5-5.1 MMOL/L Chloride 107 98-107 MMOL/L CO2 21.7 20.0-31.0 MMOL/L Anion Gap 16 5-15 Alk Phos 114 46-116 Bili Total <.2 .3-1.2 MG/DL Use of this ass ay is not recommended for patients undergoing treatment with eltrombopag due to the potential for falsely elevated results. AST/SGOT 10 15-37 UNIT/L ALT/SGPT <7 12-78 UNIT/L Osmo Serum,Calculated 304 280-300 MOSM/KG CRP 41331 Reviewed date:01/26/2025 02:23:47 PM Interpretation: Performing Lab: Notes/Report: Diagnosis Description: Tubulo-interstitial nephritis, not specified as acute or chronic CRP .83 .40-1.00 MG/DL Glucometer WBG--[id number] Reviewed date:06/17/2024 08:04:54 PM Interpretation: Performing Lab: Notes/Report: Glucometer WBG 161 65-110 MG/DL Asymptomatic~ Meter: [id number]~Merchandising Stock Associate: [id number] KIKI ELIZALDE Glucometer WBG--48869 Reviewed date:06/17/2024 08:05:05 PM Interpretation: Performing Lab: Notes/Report: Glucometer WBG 338 65-110 MG/DL Sliding Scale Given~Meter: [id number]~Merchandising Stock Associate: [id number] HOLOWELL BRIELLE Glucometer WBG--17941 Reviewed date:06/17/2024 08:05:05 PM Interpretation: Performing Lab: Notes/Report: Glucometer WBG 351 65-110 MG/DL Sliding Scale Given~Meter: [id number]~Merchandising Stock Associate: [id number] HOLOWELL BRIELLE Glucometer WBG--35855 Reviewed date:06/17/2024 08:05:05 PM Interpretation: Performing Lab: Notes/Report: Glucometer WBG 240 65-110 MG/DL See Documentation~Meter: [id number]~Merchandising Stock Associate: [id number] YEIMY KATHARINA Glucometer WBG--00181 Reviewed date:06/17/2024 08:05:05 PM Interpretation: Performing Lab: Notes/Report: Glucometer WBG 245 65-110 MG/DL Notify SHELLY~Met er: [id number]~Merchandising Stock Associate: [id number] BIANCA ROSALES Prothrombin Time 21196 Reviewed date:12/23/2024 08:46:20 PM Interpretation: Performing Lab: Notes/Report: 5407 @ 2045; Report attempt @2049 5407 @ 2045 ProTime 11.8 9.1-11.9 SEC Normal Range: 9 .1-11.9 INR 1.12 .90-1.20 Therapeutic Range: 2.0-3.0 Therapaeutic Range for heart valve replacement: 2.5-3.50 Partial Thromboplastin Time 49870 Reviewed date:12/23/2024 08:46:50 PM Interpretation: Performing Lab: Notes/Report: 5407 @ 2045; Report attempt @2049 540 @ 2045 PTT 28.9 22.6-31.8 SEC Therapeutic Range: 60-100. Critical Value Starting at > 100. MRI Lumbar Spine w/ + w/o Co nt-[id number] Reviewed date:02/01/2025 08:19:31 AM Interpretation: Performing Lab: Notes/Report: qwr=[id number]&org=iSite MRI Lumbar Spine w/ + w/o Co nt-[id number] Reviewed date:01/31/2025 08:29:45 AM Interpretation: Performing Lab: Notes/Report: See Below For Report Technique: Sagittal and axial T2 and pre and post contrast T1 and 5407 @ 2045; Report attempt @2049 Read See Below For Report Urinalysis--51503 Reviewed date:01/31/2025 08:27:55 AM Interpretation: Performing Lab: Notes/Report: need microscopic 5407 @ 2045; Report attempt @2049 5407 @ 2045 Color UA Yellow Clarity UA Turbid Specific gravity UA 1.021 1.005-1.030 Urine pH 5.5 5.0-8.0 Urine Glucose Trace Urine Bilirubin Negative Urine Ketone Negative Urine Blood 3+ Urine Protein 2+ Urobilinogen 0.2 0.1-1.0 Urine Nitrite Negative Urine Leukocyte 3+ Normal UA No UA Microscopic--[id number] Reviewed date:01/31/2025 08:27:52 AM Interpretation: Performing Lab: Notes/Report: Micro UA ordered by [employer] Rules system. 5407 @ 2045; Report attempt @2049 5407 @ 2045 RBC U 655 WBC U >999 0-5 /HPF Bacteria 1+ Hyaline Casts 3 Granular Casts Present SQ EPI 1 Budding Yeast Present Urinalysis--73790 Reviewed date:01/05/2025 11:46:37 AM Interpretation: Performing Lab: Notes/Report: need repeat urine for microscopic, thanks ELIZABETH ROBIN 5407 @ 2045; Report attempt @2049 5407 @ 2045 Color UA Yellow Clarity UA Cloudy Specific gravity UA 1.013 1.005-1.030 Urine pH 7.5 5.0-8.0 Urine Glucose 1+ Urine Bilirubin Negative Urine Ketone Negative Urine Blood 1+ Urine Protein 1+ Urobilinogen 0.2 0.1-1.0 Urine Nitrite Negative Urine Leukocyte 3+ Normal UA No UA Microscopic--85603 Reviewed date:01/05/2025 11:46:34 AM Interpretation: Performing Lab: Notes/Report: Micro UA ordered by [employer] Rules system. 5407 @ 2045; Report attempt @20497 @ 2045 RBC U 3 WBC U 375 0-5 /HPF Bacteria None Seen Hyaline Casts 3 SQ EPI <1 Culture Urine 48717 Reviewed date:01/05/2025 11:43:08 AM Interpretation: Performing Lab: Notes/Report: Culture Urine Lei DEAL, AYUSH AEL D Culture Urine t: Culture Urine Culture Urine Accessio [id number] Culture Urine n: Culture Urine Microbiology Culture Urine PROCEDURE: Culture Urine [] Culture Urine SOURCE: U CC BODY SITE: Culture Urine COLLECTED DATE/TIME: 12/25/2024 05:24 CDT RECEIVED DATE/TIME: 12/25/2024 08:17 CDT Culture Urine START DATE/TIME: 12/25/2024 08:17 CDT FREE TEXT SOURCE: Culture Urine FINAL REPORT Culture Urine Final Report [] Culture Urine Verified Date/Time: 12/27/2024 08:41 CDT Culture Urine 900 CFU/ML of yeast Culture Urine [place] [address] Reviewed date:01/05/2025 11:43:12 AM Interpretation: Performing Lab: Notes/Report: 5407 @ 2045; Report attempt @2049 5406 @ 2045 CRP 1.44 .40-1.00 MG/DL CRP 33698 Reviewed date:01/05/2025 11:41:55 AM Interpretation: Performing Lab: Notes/Report: LINE 5407 @ 2045; Report attempt @20497 @ 2045 CRP .94 .40-1.00 MG/DL Basic Metabolic Panel (BMP) 21438 Reviewed date:01/02/2025 09:13:51 AM Interpretation: Performing Lab: Notes/Report: 5407 @ 2045; Report attempt @2049 5406 @ 2045 Sodium 138 136-145 MMOL/L Potassium 4.5 3.5-5.1 MMOL/L Chloride 105 98-107 MMOL/L CO2 28.0 20.0-31.0 MMOL/L Glucose Serum 147 71-110 MG/DL Testing perfor med at [address] [place] [address]. CLIA ID#: [id number] BUN 24 7-21 MG/DL Creat .84 .57-1.17 MG/DL W-cxhaow-t-benzoquino ne imine (NAPQI) is a metabolite of acetaminophen, NAPQI concentrations of apparoximately 10 mg/L correlation to toxic levels of acetaminophen demonstrates a greater than or equil to 10% change in results. NAPQI concentrations greater than this may lead to falsely depressed results for patient samples. Use of this assay is not recommended for patients undergoing treatment with phenindione, due to the potential for falsely depressed results. GFR 90.6 Calculation per formed from GFR calculator provided by the National Kidney Foundation. Glomerular Filtration rate(GRF) is the best overall index of kidney function. Normal GFR varies according to age,sex, body size, and declines with age. The National Kidney Foundation recommends using the CKD-EPI Creatinine Equation(2020) to estimate GFR. Anion Gap 10 5-15 BUN/Creat Ratio 28.6 12.0-20.0 % Calcium 8.9 8.7-10.4 MG/DL Osmo Serum,Calculated 293 280-300 MOSM/KG Phosphorus (B) 12516 Reviewed date:01/02/2025 09:13:47 AM Interpretation: Performing Lab: Notes/Report: 5407 @ 2045; Report attempt @2049 5407 @ 2045 Phos 3.2 2.4-5.1 MG/DL CRP 34244 Reviewed date:01/02/2025 09:12:14 AM Interpretation: Performing Lab: Notes/Report: 5407 @ 6; Report attempt @2049 5407 @ 2045 CRP .62 .40-1.00 MG/DL Culture Urine 60358 Reviewed date:12/23/2024 09:25:47 AM Interpretation: Performing Lab: Notes/Report: Culture Urine AYUSH Kelly AEL D Culture Urine t: Culture Urine Culture Urine [facility] [id number] Culture Urine n: Culture Urine Microbiology Culture Urine PROCEDURE: Culture Urine [O1] Culture Urine SOURCE: Urine BODY SITE: Culture Urine COLLECTED DATE/TIME: 12/20/2024 11:11 CDT RECEIVED DATE/TIME: 12/20/2024 14:59 CDT Culture Urine START DATE/TIME: 12/20/2024 14:59 CDT FREE TEXT SOURCE: Right perc tube Culture Urine FINAL REPORT Culture Urine Final Report [] Culture Urine Verified Date/Time: 12/23/2024 09:02 CDT Culture Urine >10,000 cfu/ml Laurie da tropicalis Culture Urine No further work-up i s indicated Culture Urine Order Comments Culture Urine O1: Culture Urine (Culture Urine 07016) Culture Urine Diagnosis Descriptio n: Other abnormal findings in urine Culture Urine 92432 Reviewed date:12/23/2024 09:24:51 AM Interpretation: Performing Lab: Notes/Report: Culture Urine Lei DEAL, AYUSH AEL D Culture Urine t: Culture Urine Culture Urine Accessio [id number] Culture Urine n: Culture Urine Microbiology Culture Urine PROCEDURE: Culture Urine [O1] Culture Urine SOURCE: Urine BODY SITE: Culture Urine COLLECTED DATE/TIME: 12/20/2024 11:10 CDT RECEIVED DATE/TIME: 12/20/2024 14:59 CDT Culture Urine START DATE/TIME: 12/20/2024 14:59 CDT FREE TEXT SOURCE: Left perc tube Culture Urine FINAL REPORT Culture Urine Final Report [] Culture Urine Verified Date/Time: 12/23/2024 09:02 CDT Culture Urine >10,000 cfu/ml Laurie da tropicalis Culture Urine No further work-up i s indicated Culture Urine Order Comments Culture Urine O1: Culture Urine (Culture Urine 06839) Culture Urine Right perc tube Culture Urine Diagnosis Descriptio n: Other abnormal findings in urine CRP [id number] Reviewed date:01/02/2025 09:13:54 AM Interpretation: Performing Lab: Notes/Report: Pt is a line draw 12/26/2024 23:09:44 chutson 5407 @ 2045; Report attempt @2049 5407 @ 2045 CRP .79 .40-1.00 MG/DL CRP 04348 Reviewed date:01/05/2025 11:54:59 AM Interpretation: Performing Lab: Notes/Report: 5407 @ 2045; Report attempt @2049 5407 @ 2045 CRP 5.22 .40-1.00 MG/DL Culture Urine 76815 Reviewed date:01/31/2025 08:27:40 AM Interpretation: Performing Lab: Notes/Report: Culture Urine AYUSH Kelly D Culture Urine t: Culture Urine Culture Urine Accessio [id number] Culture Urine n: Culture Urine Microbiology Culture Urine PROCEDURE: Culture Urine [] Culture Urine SOURCE: Urine BODY SITE: Culture Urine COLLECTED DATE/TIME: 12/22/2024 09:20 CDT RECEIVED DATE/TIME: 12/22/2024 10:11 CDT Culture Urine START DATE/TIME: 12/22/2024 10:11 CDT FREE TEXT SOURCE: Culture Urine FINAL REPORT Culture Urine Final Report [] Culture Urine Verified Date/Time: 12/24/2024 08:12 CDT Culture Urine >100,000 cfu/ml. Marci tropicalis Culture Urine No further work-up i s indicated Vancomycin Trough 38322 Reviewed date:02/01/2025 08:19:38 AM Interpretation: Performing Lab: Notes/Report: Vanco Tr 36.4 8.0-20.0 MCG/ML called to elena freeman 12/21/2024 13:23:48 dg Glucometer WBG--40313 Reviewed date:06/17/2024 08:05:05 PM Interpretation: Performing Lab: Notes/Report: Glucometer WBG 315 65-110 MG/DL Notify SHELLY~Met er: [id number]~Merchandising Stock Associate: [id number] BIANCA BOBBY Glucometer WBG--80659 Reviewed date:06/17/2024 08:04:54 PM Interpretation: Performing Lab: Notes/Report: Glucometer WBG 179 65-110 MG/DL Notify ~Met er: [id number]~Merchandising Stock Associate: [id number] EFRA BREWER Culture Urine 65713 Reviewed date:05/30/2024 07:43:09 AM Interpretation: Performing Lab: Notes/Report: Culture Urine AYUSH Kelly AEScott D Culture Urine t: Culture Urine Culture Urine Accessio [id number] Culture Urine n: Culture Urine Microbiology Culture Urine PROCEDURE: Culture Urine [O1] Culture Urine SOURCE: Urine BODY SITE: Culture Urine COLLECTED DATE/TIME: 05/26/2024 13:01 CDT RECEIVED DATE/TIME: 05/26/2024 19:36 CDT Culture Urine START DATE/TIME: 05/26/2024 19:36 CDT FREE TEXT SOURCE: Right Nephrostomy Tube Culture Urine FINAL REPORT Culture Urine Final Report [] Culture Urine Verified Date/Time: 05/28/2024 05:10 CDT Culture Urine > 10,000 cfu/ml mixe d superficial negrito Culture Urine Multiple microorgani sms present Culture Urine Probable contamination Culture Urine Order Comments Culture Urine O1: Culture Urine (Culture Urine 11780) Culture Urine Diagnosis Descriptio n: Personal history of malignant neoplasm of prostate Reason For Referral Reason Personal history of prostate cancer Referring Provider First Name Carla bettencourt Referring Provider Last Name [place] Referring Provider [facility] Referred Organization [facility] Referred Provider Frankie Hendrix Referred Address [address],[place], [place],[address], Referred Provider Specialty Urology Referral Priority Routine Reason UTI (Expires 6) 12/20 Diagnosis 1 UTI symptoms (R39.9) Referring Provider First Name Judy Referring Provider Last Name Ernestine [facility] Referred Provider Nury Flores Referred Address [address] [place] [address],[place], [place],[address],[place] Referred Provider Specialty Nurse Tolu elizalde Referral Priority Routine Reason Urinary tract infect ion Diagnosis 1 Urinary tract infect ion (N39.0) Referring Provider First Name Carla bettencourt Referring Provider Last Name [place] Referring Provider [facility] Referred Organization [facility] Referred Provider Frankie Hendrix Referred Address [address],[place],[address],[place] Referred Provider Specialty Urology Referral Priority Routine Reason Nephrostomy tubes Diagnosis 1 Nephrostomy status ( Z93.6) Referring Provider First Name Trisha Referring Provider Last Name [facility] Referring Provider [facility] icine Referred Organization [facility] Referred Provider Frankie Hendrix Referred Address [address],[place],[address],[place] Referred Provider Specialty Urology Referral Priority Routine Medications Medication SIG (Take, Route, Frequency, Duration) Notes Start Date End Date Status Galantamine Hydrobromide 4 MG 1 tablet with meals Orally Twice a day Active Linezolid Active Insulin Glargine 100 UNIT/ML as directed Subcutaneous Active menthol 0.0044 MG/MG / zinc oxide 0.206 MG/MG Topical Ointment *Reorder from [facility] for eRx and Interaction Alerts* 09/25/2023 Active Melatonin 1 MG Oral Tablet ORAL *Reorder from [facility] for eRx and Interaction Alerts* 07/23/2023 Active Cranberry 250 MG as directed Orally Active Dulcolax 10 MG 1 suppository as needed Rectal Once a day Not-Taking Coenzyme Q10 10 MG as directed Orally Active Diltiazem Hydrochloride 60 MG Oral Tablet ORAL *Reorder from [facility] for eRx and Interaction Alerts* 07/23/2023 Not-Taking Fish Oil 1000 MG 1 capsule Orally Three times a day Active fluticasone propionate 0.1 MG/ACTUAT / salmeterol 0.05 MG/ACTUAT Dry Powder Inhaler INTRAPULMONARY *Reorder from [facility] for eRx and Interaction Alerts* 07/23/2023 Not-Taking traMADol HCl 50 MG 1 tablet as needed Orally every 6 hours 03/23/2024 Not-Taking Finasteride 5 MG Oral 07/23/2023 Ac tive Fluconazole 200 MG 1 tablet Orally 03/23/2024 Not-Taking Furosemide 20 MG Oral Tablet ORAL *Reorder from [facility] for eRx and Interaction Alerts* 07/23/2023 Active vitamin B12 1 MG Sublingual Tablet *Reorder from [facility] for eRx and Interaction Alerts* 07/23/2023 Not-Taking Fosfomycin Tromethamine 3 GM as directed Orally 02/01/2025 Acti ve ubidecarenone 30 MG Oral Capsule ORAL *Reorder from [facility] for eRx and Interaction Alerts* 07/23/2023 Not-Taking Rosuvastatin Calcium 40 MG Oral Tablet ORAL *Reorder from [facility] for eRx and Interaction Alerts* 07/23/2023 Active rivaroxaban 20 MG Oral Tablet [Xarelto] ORAL *Reorder from [facility] for eRx and Interaction Alerts* 07/23/2023 Active Amiodarone HCl 200 MG 1 tablet Orally Once a day Active Tylenol 325 MG 1 tablet as needed Orally every 6 hrs 03/23/2024 Active Albuterol Sulfate 108 (90 Base) MCG/ACT 1 puff as needed Inhalation every 4 hrs Active Tamsulosin HCl 0.4 MG 1 capsule Orally Once a day Active Carvedilol 6.25 MG 1 tablet with food Orally Twice a day Active Colace 100 MG 1 capsule as needed Orally Once a day Not-Taking bisacodyl 10 MG Rectal Suppository [Dulcolax] RECTAL *Reorder from [email or web address] for eRx and Interaction Alerts* 07/23/2023 Active cholecalciferol 1.25 MG Oral Tablet ORAL *Reorder from [email or web address] for eRx and Interaction Alerts* 07/23/2023 Not-Taking NovoLOG 100 UNIT/ML as directed Injection Active Metoprolol Tartrate 50 MG 1 tablet with food Orally Twice a day Active Pantoprazole Sodium 40 MG 1 tablet Orally BID 03/23/2024 Active oxyCODONE HCl 5 mg Active insulin aspart, human 100 UNT/ML Injectable Solution [NovoLog] *Reorder from [email or web address] for eRx and Interaction Alerts* 09/25/2023 Not-Taking Potassium Chloride ER 10 MEQ 1 tablet with food Orally once daily Active Gabapentin 400 MG 1 capsule Orally Once a day Not-Taking Melatonin 1 MG/4ML 4 mL at bedtime as needed Orally Once a day Not-Taking Losartan Potassium 50 MG Oral Tablet ORAL *Reorder from [email or web address] for eRx and Interaction Alerts* 07/23/2023 Not-Taking Methocarbamol 750 MG Oral Tablet ORAL *Reorder from [email or web address] for eRx and Interaction Alerts* 07/23/2023 Not-Taking metFORMIN HCl 500 MG Oral 07/23/2023 Not-Taking Mometasone Furoate 50 MCG/ACT 4 sprays (2 sprays in each nostril) Nasally Once a day Not-Taking MiraLax 17 GM/SCOOP 1 scoop mixed with 8 ounces of fluid Orally Once a day Not-Taking Tamsulosin HCl 0.4 MG Oral 07/23/2023 Not-Taking mometasone furoate 0.05 MG/ACTUAT Metered Dose Nasal Rolfe *Reorder from [email or web address] for eRx and Interaction Alerts* 07/23/2023 Not-Taking Problems Problem Type SNOMED Code ICD Code Onset Dates Problem Status W/U Status Risk Notes Problem Malignant tumor of prostate (396651675) Malignant neoplasm of prostate (C61) Active confirmed Problem 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 Problem 84101993 Type 2 diabetes mellitus with diabetic chronic kidney disease (E11.22) Active confirmed Problem 865073340 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 Problem Chronic kidney disease (861232483) Chronic kidney disease, unspecified (N18.9) Active confirmed Problem 68661907 Other specified disorders of bladder (N32.89) Active confirmed Problem Disorder of urinary bladder (70896672) Bladder disorder, unspecified (N32.9) Active confirmed Problem 9294447 Hallucinations, unspecified (R44.3) Active confirmed Problem 849469093 Personal history of malignant neoplasm of prostate (Z85.46) Active confirmed Problem 712335871 Other artificial openings of urinary tract status (Z93.6) Active confirmed Problem Urogenital implant (051300874) Presence of urogenital implants (Z96.0) Active confirmed Problem 629411127 Altered mental status, unspecified altered mental status type (R41.82) Active confirmed Problem History of malignant neoplasm of prostate (814892514) Personal history of prostate cancer (Z85.46) Active confirmed Problem History of radiation therapy (279011282) History of radiation therapy (Z92.3) Active confirmed Problem 043349994 Nephrostomy status (Z93.6) Active confirmed Problem 609682604 Chronic kidney disease, stage 3 unspecified (N18.30) Active confirmed Problem History of external beam radiation therapy (66879766291444) History of external beam radiation therapy (Z92.3) Active confirmed Problem 846944385 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) Active confirmed Problem Ureteral stent present (Z96.0) Active confirmed Problem Obstructive pyelonephritis (4200566936482) Obstructive pyelonephritis (N11.1) Active confirmed Problem 87644882948984 Nephrostomy present (Z93.6) Active confirmed Vital Signs Heart Rate 81 /min 03/31/2025 Temperature 98.3 degrees Fahrenheit 03/31/2025 Oximetry 99 % 02/01/2025 Height-cm 172.72 cm 03/31/2025 Blood pressure diastolic 66 mm Hg 03/31/2025 Weight-kg 44.57 kg 12/20/2024 Height 68.00 in 03/31/2025 Blood pressure systolic 111 mm Hg 03/31/2025 Weight 98.26 lbs 12/20/2024 BMI 14.94 kg/m2 12/20/2024 Encounters Encounter Location Date Provider Diagnosis Migrated_Facility 0 0 07/30/2024 Provider Migration Migrated_Facility 0 0 07/31/2024 Provider Migration [facility] [address] [place] [address] 05/26/2024 [facility] [address] [place] [address] 05/26/2024 [facility] [facility] [address] [place] [address] 05/26/2024 [facility] [address] [place] [address] 05/26/2024 Frankie Jacksay Elevated prostate specific antigen [PSA] R97.20 [facility] [address] [place] [address] 05/30/2024 [facility] [address] [place] [address] 06/01/2024 [facility] [address] [place] [address] 06/07/2024 [facility] [address] [place] [address] 07/19/2024 [facility] [address] [place] [address] 07/25/2024 [facility] [address] [place] [address] 10/14/2024 [facility] [address] [place] [address] 12/02/2024 [facility] [address] [place] [address] 12/07/2024 Frankie Jacksay [facility] [address] [place] [address] 12/19/2024 Frankie Jacksay [facility] [address] [place] [address] 12/20/2024 Frankie Hendrix [facility] [address] [place] [address] 12/20/2024 Frankie Hendrix Other abnormal findings in urine R82.998 [facility] [address] [place] [address] 12/20/2024 Frankie Jacksay [facility] [address] [place] [address] 12/21/2024 Frankie Jacksay [facility] [address] [place] [address] 12/22/2024 [facility] [address] [place] [address] 01/09/2025 Nury Flores [facility] [address] [place] [address] 03/21/2025 Frankie Jacksay [facility] [address] [place] [address] 03/22/2025 Frankie Jacksay [facility] [address] [place] [address] 03/31/2025 Frankie Hendrix 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46 ; Bladder disorder N32.9 ; Other abnormal findings in urine R82.998 and Unspecified abnormal findings in urine R82.90 [facility] [address] [place] [address] [place] [address] 03/31/2025 Ila Fischer Nephrostomy status Z93.6 ; Hydronephrosis, unspecified hydronephrosis type N13.30 ; Personal history of malignant neoplasm of prostate Z85.46 ; History of external beam radiation therapy Z92.3 and 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 coli] as the cause of diseases classified elsewhere (ICD-10 - B96.20) 1. R ureter obstruction, severe hydronephrosis , chronic contracted bladder - s/p Right ureteral stent exchange on March 08, 2024. - to be seen this week at [facility] for ileal conduit and urinary diversion 2. Last seen here in clinic April 2024 Patient [place] [facility] [place] to [place], per patient and daughter UTI sepsis and back infection I will request records 3. Nephrostomy tubes in place bilaterally, seen by Dr. Hendrix today Per patient report seen by [facility], not stable for ileal conduit surgery at this time 4. Intractable back pain abdominal pain hip pain, will refer patient to the emergency room for evaluation He will need close follow-up in the clinic 12/20/2024 Bilateral hydronephrosis (ICD-10 - N13.30) 12/20/2024 Personal history of prostate cancer (ICD-10 - Z85.46) 12/20/2024 Pyelonephritis (ICD-10 - N12) 1. R ureter obstruction, severe hydronephrosis , chronic contracted bladder - s/p Right ureteral stent exchange on March 08, 2024. - to be seen this week at [facility] for ileal conduit and urinary diversion 2. Last seen here in clinic April 2024 Patient recently [place] [facility] [place] medical records to review, per patient and daughter UTI sepsis and back infection I will request records 3. Nephrostomy tubes in place bilaterally, seen by Dr. Hendrix today Per patient report seen by [facility], not stable for ileal conduit surgery at this time 4. Intractable back pain abdominal pain hip pain, will refer patient to the emergency room for evaluation He will need close follow-up in the clinic 01/25/2025 Pyelonephritis (ICD-10 - N12) 1. 74 yo white male with a history of T2DM, COPD, HTN, GERD, HLD, neuropathy, PTSD 2. End-stage contracted bladder and right hydronephrosis , secondary to radiation therapy for prostate cancer - He had placement of nephrostomy tube 6-02-25- 12-21-24; Exchange of bilateral percutaneous nephrostomy tubes 3. History of complicated UTI's - ESBL E coli, urine and blood with marci tropicalis -12-20-24; UC with Yeast- 12-20-24 U WBC >999 - the combination of obstruction, nephrostomy tubes, marked pyuria, and symptomatic complicated UTI symptoms requires therapy 4. Discitis, L3,4- 12-22-24; MRI progressive discitis L3,4 5. Antibiotics: Vancomycin, Fortaz, Micagungin (began 12-22-24) day #35 - duration Discitis 6 weeks IV - duration complicated marci UTI 3 weeks 6. U WBC down now to 375 in patient, an indication of therapeutic effectiveness Nursing facility records reviewed, medication list reviewed and reconciled Check labs in house today follow-up in 1 week 02/01/2025 Pyelonephritis (ICD-10 - N12) 1. 74 yo white male with a history of T2DM, COPD, HTN, GERD, HLD, neuropathy, PTSD 2. End-stage contracted bladder and right hydronephrosis , secondary to radiation therapy for prostate cancer [...] complicated marci UTI 3 weeks 6. 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 coli] as the cause of diseases classified elsewhere (ICD-10 - B96.20) 1. 74 yo white male with a history of T2DM, COPD, HTN, GERD, HLD, neuropathy, PTSD 2. End-stage contracted bladder and right hydronephrosis , secondary to radiation therapy for prostate cancer - He had placement of nephrostomy tube 03-09-24- 12-21-24; Exchange of bilateral percutaneous nephrostomy tubes 3. History of complicated UTI's - ESBL E coli, urine and blood with marci tropicalis -12-20-24; UC with Yeast- 12-20-24 U WBC >999 - the combination of obstruction, nephrostomy tubes, marked pyuria, and symptomatic complicated UTI symptoms requires therapy 4. Discitis, L3,4- 12-22-24; MRI progressive discitis L3,4 5. Antibiotics: Vancomycin, Fortaz, Micagungin (began 12-22-24) day #35 - duration Discitis 6 weeks IV - duration complicated marci UTI 3 weeks 6. U WBC down now to 375 in patient, an indication of therapeutic effectiveness Nursing facility records reviewed, medication list reviewed and reconciled Check labs in house today follow-up in 1 week 02/01/2025 Unspecified Escherichia coli [E. coli] as the cause of diseases classified elsewhere (ICD-10 - B96.20) 1. 74 yo white male with a history of T2DM, COPD, HTN, GERD, HLD, neuropathy, PTSD 2. End-stage contracted bladder and right hydronephrosis , secondary to radiation therapy for prostate cancer [...] complicated marci UTI 3 weeks 6. 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 R ureter obstruction, severe hydronephrosis , chronic contracted bladder - s/p Right ureteral stent exchange on March 08, 2024. - to be seen this week at [facility] for ileal conduit and urinary diversion 2. Last seen here in clinic April 2024 Patient recently [place] [facility] [place] medical [place] to review, per patient and daughter UTI sepsis and back infection I will request records 3. Nephrostomy tubes in place bilaterally, seen by Dr. Hendrix today Per patient report seen by [facility], not stable for ileal conduit surgery at this time 4. Intractable back pain abdominal pain hip pain, will refer patient to the emergency room for evaluation He will need close follow-up in the clinic 05/26/2024 Bladder disorder, unspecified (ICD-10 - N32.9) 12/20/2024 Hydronephrosis, unspecified hydronephrosis type (ICD-10 - N13.30) 1. R ureter obstruction, severe hydronephrosis , chronic contracted bladder - s/p Right ureteral stent exchange on March 08, 2024. - to be seen this week at [facility] for ileal conduit and urinary diversion 2. Last seen here in clinic April 2024 Patient recently released [place] [facility] [place] medical records to review, per patient and daughter UTI sepsis and back infection I will request records 3. Nephrostomy tubes in place bilaterally, seen by Dr. Hendrix today Per patient report seen by [facility], not stable for ileal conduit surgery at this time 4. 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 74 yo white male with a history of T2DM, COPD, HTN, GERD, HLD, neuropathy, PTSD 2. End-stage contracted bladder and right hydronephrosis , secondary to radiation therapy for prostate cancer [...] complicated marci UTI 3 weeks 6. 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 74 yo white male with a history of T2DM, COPD, HTN, GERD, HLD, neuropathy, PTSD 2. End-stage contracted bladder and right hydronephrosis , secondary to radiation therapy for prostate cancer - He had placement of nephrostomy tube 03-09-24- 12-21-24; Exchange of bilateral percutaneous nephrostomy tubes 3. History of complicated UTI's - ESBL E coli, urine and blood with marci tropicalis -12-20-24; UC with Yeast- 12-20-24 U WBC >999 - the combination of obstruction, nephrostomy tubes, marked pyuria, and symptomatic complicated UTI symptoms requires therapy 4. Discitis, L3,4- 12-22-24; MRI progressive discitis L3,4 5. Antibiotics: Vancomycin, Fortaz, Micagungin (began 12-22-24) day #35 - duration Discitis 6 weeks IV - duration complicated marci UTI 3 weeks 6. U WBC down now to 375 in patient, an indication of therapeutic effectiveness Nursing facility records reviewed, medication list reviewed and reconciled Check labs in house today follow-up in 1 week 03/31/2025 History of external beam radiation therapy (ICD-10 - Z92.3) SEE ABOVE NOTE 03/31/2025 Ureteral stent present (ICD-10 - Z96.0) 03/31/2025 Malignant neoplasm of right ureter (ICD-10 - C66.1) SMALL 12 MM MASS FOUND IN RIGHT URETER AND LOWER RIGHT KIDNEY 12/20/2024 Ureteral stent present (ICD-10 - Z96.0) 1. R ureter obstruction, severe hydronephrosis , chronic contracted bladder - s/p Right ureteral stent exchange on March 08, 2024. - to be seen this week at [facility] for ileal conduit and urinary diversion 2. Last seen here in clinic April 2024 Patient recently released [place] [facility] [place] medical records to review, per patient and daughter UTI sepsis and back infection I will request records 3. Nephrostomy tubes in place bilaterally, seen by Dr. Hendrix today Per patient report seen by [facility], not stable for ileal conduit surgery at this time 4. Intractable back pain abdominal pain hip pain, will refer patient to the emergency room for evaluation He will need close follow-up in the clinic 01/25/2025 Hydronephrosis, unspecified hydronephrosis type (ICD-10 - N13.30) 1. 74 yo white male with a history of T2DM, COPD, HTN, GERD, HLD, neuropathy, PTSD 2. End-stage contracted bladder and right hydronephrosis , secondary to radiation therapy for prostate cancer - He had placement of nephrostomy tube -02-25- 12-21-24; Exchange of bilateral percutaneous nephrostomy tubes 3. History of complicated UTI's - ESBL E coli, urine and blood with marci tropicalis -12-20-24; UC with Yeast- 12-20-24 U WBC >999 - the combination of obstruction, nephrostomy tubes, marked pyuria, and symptomatic complicated UTI symptoms requires therapy 4. Discitis, L3,4- 12-22-24; MRI progressive discitis L3,4 5. Antibiotics: Vancomycin, Fortaz, Micagungin (began 12-22-24) day #35 - duration Discitis 6 weeks IV - duration complicated marci UTI 3 weeks 6. U WBC down now to 375 in patient, an indication of therapeutic effectiveness Nursing facility records reviewed, medication list reviewed and reconciled Check labs in house today follow-up in 1 week 02/01/2025 Hydronephrosis, unspecified hydronephrosis type (ICD-10 - N13.30) 1. 74 yo white male with a history of T2DM, COPD, HTN, GERD, HLD, neuropathy, PTSD 2. End-stage contracted bladder and right hydronephrosis , secondary to radiation therapy for prostate cancer [...] complicated marci UTI 3 weeks 6. Prophylaxis; -02-01-25 begin Fosfomycin 1 packet weekly (start date 02-01-25) Labs 01-25-25 W 10.3, Technical Data Analyst .77, CRP .83 Follow up; 1 month Maria Alejandra Degroot 12/20/2024 Other abnormal findings in urine (ICD-10 - R82.998) 12/20/2024 Unspecified abnormal findings in urine (ICD-10 - R82.90) 12/20/2024 Intractable pain (ICD-10 - R52) 1. R ureter obstruction, severe hydronephrosis , chronic contracted bladder - s/p Right ureteral stent exchange on March 08, 2024. - to be seen this week at [facility] for ileal conduit and urinary diversion 2. Last seen here in clinic April 2024 Patient recently released [place] [facility] [place] medical [place] to review, per patient and daughter UTI sepsis and back infection I will request records 3. Nephrostomy tubes in place bilaterally, seen by Dr. Hendrix today Per patient report seen by [facility], not stable for ileal conduit surgery at this time 4. Intractable back pain abdominal pain hip pain, will refer patient to the emergency room for evaluation He will need close follow-up in the clinic 01/25/2025 Ureteral stent present (ICD-10 - Z96.0) 1. 74 yo white male with a history of T2DM, COPD, HTN, GERD, HLD, neuropathy, PTSD 2. End-stage contracted bladder and right hydronephrosis , secondary to radiation therapy for prostate cancer - He had placement of nephrostomy tube 03-09-24- 12-21-24; Exchange of bilateral percutaneous nephrostomy tubes 3. History of complicated UTI's - ESBL E coli, urine and blood with marci tropicalis -12-20-24; UC with Yeast- 12-20-24 U WBC >999 - the combination of obstruction, nephrostomy tubes, marked pyuria, and symptomatic complicated UTI symptoms requires therapy 4. Discitis, L3,4- 12-22-24; MRI progressive discitis L3,4 5. Antibiotics: Vancomycin, Fortaz, Micagungin (began 12-22-24) day #35 - duration Discitis 6 weeks IV - duration complicated marci UTI 3 weeks 6. U WBC down now to 375 in patient, an indication of therapeutic effectiveness Nursing facility records reviewed, medication list reviewed and reconciled Check labs in house today follow-up in 1 week 02/01/2025 Ureteral stent present (ICD-10 - Z96.0) 1. 74 yo white male with a history of T2DM, COPD, HTN, GERD, HLD, neuropathy, PTSD 2. End-stage contracted bladder and right hydronephrosis , secondary to radiation therapy for prostate cancer [...] complicated marci UTI 3 weeks 6. Prophylaxis; -02-01-25 begin Fosfomycin 1 packet weekly (start date 02-01-25) Labs 01-25-25 W 10.3, Technical Data Analyst .77, CRP .83 [facility] Intractable pain (ICD-10 - R52) 1. 74 yo white male with a history of T2DM, COPD, HTN, GERD, HLD, neuropathy, PTSD 2. End-stage contracted bladder and right hydronephrosis , secondary to radiation therapy for prostate cancer [...] complicated marci UTI 3 weeks 6. Prophylaxis; -02-01-25 begin Fosfomycin 1 packet weekly (start date 02-01-25) Labs 01-25-25 W 10.3, Technical Data Analyst .77, CRP .83 [facility]; [facility] Intractable pain (ICD-10 - R52) 1. 74 yo white male with a history of T2DM, COPD, HTN, GERD, HLD, neuropathy, PTSD 2. End-stage contracted bladder and right hydronephrosis , secondary to radiation therapy for prostate cancer - He had placement of nephrostomy tube 03-09-2412-21-24; Exchange of bilateral percutaneous nephrostomy tubes 3. History of complicated UTI's - ESBL E coli, urine and blood with marci tropicalis -12-20-24; UC with Yeast- 12-20-24 U WBC >999 - the combination of obstruction, nephrostomy tubes, marked pyuria, and symptomatic complicated UTI symptoms requires therapy 4. Discitis, L3,4- 12-22-24; MRI progressive discitis L3,4 5. Antibiotics: Vancomycin, Fortaz, Micagungin (began 12-22-24) day #35 - duration Discitis 6 weeks IV - duration complicated marci UTI 3 weeks 6. U WBC down now to 375 in patient, an indication of therapeutic effectiveness Nursing facility records reviewed, medication list reviewed and reconciled Check labs in house today follow-up in 1 week 12/20/2024 Nephrostomy status (ICD-10 - Z93.6) 1. R ureter obstruction, severe hydronephrosis , chronic contracted bladder - s/p Right ureteral stent exchange on March 08, 2024. - to be seen this week at [facility] for ileal conduit and urinary diversion 2. Last seen here in clinic April 2024 Patient recently [place] [facility] [place] medical [place] to review, per patient and daughter UTI sepsis and back infection I will request records 3. Nephrostomy tubes in place bilaterally, seen by Dr. Hendrix today Per patient report seen by [facility], not stable for ileal conduit surgery at this time 4. Intractable back pain abdominal pain hip pain, will refer patient to the emergency room for evaluation He will need close follow-up in the clinic 02/01/2025 Nephrostomy status (ICD-10 - Z93.6) 1. 74 yo white male with a history of T2DM, COPD, HTN, GERD, HLD, neuropathy, PTSD 2. End-stage contracted bladder and right hydronephrosis , secondary to radiation therapy for prostate cancer [...] complicated marci UTI 3 weeks 6. Prophylaxis; -02-01-25 begin Fosfomycin 1 packet weekly (start date 02-01-25) Labs 01-25-25 W 10.3, Technical Data Analyst .77, CRP .83 Follow up; 1 month Maria Alejandra Degroot 01/25/2025 Nephrostomy status (ICD-10 - Z93.6) 1. 74 yo white male with a history of T2DM, COPD, HTN, GERD, HLD, neuropathy, PTSD 2. End-stage contracted bladder and right hydronephrosis , secondary to radiation therapy for prostate cancer - He had placement of nephrostomy tube 03-09-2412-21-24; Exchange of bilateral percutaneous nephrostomy tubes 3. History of complicated UTI's - ESBL E coli, urine and blood with marci tropicalis -12-20-24; UC with Yeast- 12-20-24 U WBC >999 - the combination of obstruction, nephrostomy tubes, marked pyuria, and symptomatic complicated UTI symptoms requires therapy 4. Discitis, L3,4- 12-22-24; MRI progressive discitis L3,4 5. Antibiotics: Vancomycin, Fortaz, Micagungin (began 12-22-24) day #35 - duration Discitis 6 weeks IV - duration complicated marci UTI 3 weeks 6. U WBC down now to 375 in patient, an indication of therapeutic effectiveness Nursing facility records reviewed, medication list reviewed and reconciled Check labs in house today follow-up in 1 week 05/26/2024 Other culture urine from each perc tube stop finasteride stop tamsulosin continue follow up with Dr. Hood for IV antibiotics. Schedule cysto with right ureteral stent removal in the main OR [facility]. current PSA. Schedule bilateral perc tube exchange in 2-3 weeks. 12/20/2024 Other Schedule bilateral percutaneous nephrostomy tube exchange with interventional radiology at [facility]. These will need to be changed every 3 months. cbc, bmp, PSA now. [facility] today. Please obtain and if it is that is fine. follow up 3 months with nurse pracdtitioner. Cutlure urine from each PCNL. 12/20/[address] Man, referring patient to the emergency room for intractable pain evaluation No medical records [place] [facility] [place] 1. R ureter obstruction, severe hydronephrosis , chronic contracted bladder - s/p Right ureteral stent exchange on March 08, 2024. - to be seen this week at [facility] for ileal conduit and urinary diversion 2. Last seen here in clinic April 2024 Patient recently released from [facility] [place] medical records to review, per patient and daughter UTI sepsis and back infection I will request records 3. Nephrostomy tubes in place bilaterally, seen by Dr. Hendrix today Per patient report seen by [facility], not stable for ileal conduit surgery at this time 4. Intractable back pain abdominal pain hip pain, will refer patient to the emergency room for evaluation He will need close follow-up in the clinic 01/25/2025 Other 1. 74 yo white male with a history of T2DM, COPD, HTN, GERD, HLD, neuropathy, PTSD 2. End-stage contracted bladder and right hydronephrosis , secondary to radiation therapy for prostate cancer - He had placement of nephrostomy tube 03-09-24- 12-21-24; Exchange of bilateral percutaneous nephrostomy tubes 3. History of complicated UTI's - ESBL E coli, urine and blood with marci tropicalis -12-20-24; UC with Yeast- 12-20-24 U WBC >999 - the combination of obstruction, nephrostomy tubes, marked pyuria, and symptomatic complicated UTI symptoms requires therapy 4. Discitis, L3,4- 12-22-24; MRI progressive discitis L3,4 5. Antibiotics: Vancomycin, Fortaz, Micagungin (began 12-22-24) day #35 - duration Discitis 6 weeks IV - duration complicated marci UTI 3 weeks 6. U WBC down now to 375 in patient, an indication of therapeutic effectiveness Nursing facility records reviewed, medication list reviewed and reconciled Check labs in house today follow-up in 1 week 03/31/2025 Other FOLLOW UP IN 3 MONTHS UA, CT ABDOMEN NO CONTRAST, CBC, CMP - IMAGING MUST BE DONE AT [facility], [facility] SEND ORDER FOR NEPHROSTOMY TUBE EXCHANGE OUTPATIENT TO BE COMPLETED IN EARLY MAY TO RADIOLOGY FOR DR CAMACHO OR DR HOUSER 12/22/2024 1. R ureter obstruction, severe hydronephrosis , chronic contracted bladder - s/p Right ureteral stent exchange on March 08, 2024. - to be seen this week at [facility] for ileal conduit and urinary diversion 2. Last seen here in clinic April 2024 [place] [facility] [place] to review, per patient and daughter UTI sepsis and back infection I will request records 3. Nephrostomy tubes in place bilaterally, seen by Dr. Hendrix today Per patient report seen by [facility], not stable for ileal conduit surgery at this time 4. Intractable back pain abdominal pain hip pain, will refer patient to the emergency room for evaluation He will need close follow-up in the clinic 03/01/2025 1. 74 yo white male with a history of T2DM, COPD, HTN, GERD, HLD, neuropathy, PTSD 2. End-stage contracted bladder and right hydronephrosis , secondary to radiation therapy for prostate cancer - He had placement of nephrostomy tube 03-09-24 12-21-24; Exchange of bilateral percutaneous nephrostomy tubes [...] (start date 02-01-25) Labs 01-25-25 W 10.3, Technical Data Analyst .77, CRP .83 Follow up; Maria Alejandra Degroot Plan Of Treatment Pending Test Test Name Order Date PSA Diagnostic--[id number] 05/26/2024 Next Appt Details Provider Name:Ila Godwin, 06/28/2025 02:10:00 PM, [address], [place], [address], Insurance Providers Payer Name Payer Address Payer Phone Subscriber Number Group Number Insured Name Patient Relationship to Insured Coverage Start Date Coverage End Date [employer] [address] [place] [phone] [id number] Raphael Deal Self - patient is the insured Out of Network [facility] Medicare Replacement [address] [address] [place] [address] [id number] Raphael Deal Self - patient is the insured Medical (General) History Medical History History ICD Code osteomyelitis Muscle weakness Paroxysmal a-fib acute pyelonephritis hydronephrosis w/ urethral stricture pressure ulcer of right buttock HTN Chronic kidney disease Heart faliure Nonrheumatic mitral valve insufficiency other hypertrophic cardiomyopathy COPD Obstructive Sleep apnea Alzheimer's Dementia Psychotic disturbance mood disturbance anxiety Diabetes Type 2 Diabetic Neuropathy Anemia Insomnia Obesity Neuromuscular dysfunction of bladder BPH w/ LUTS GERD Surgical History Surgery Date(Month/Year) Unable to obtain
--- OUTSIDE RECORDS SUMMARY | 2025-04-10 15:16 | XMS_ITS | Continuity of Care Document ---
Author Organization [employer] ([facility]) Address [address] [place] [id number] Insurance Providers Payer Plan Claims Address Claims Phone Policy Number Group Number Relation Employer Guarantor Name Guarantor Guarantor Address Guarantor Phone MED[employer] RE MEDIC ARE tel:[phone] [employer] RE ADVANT AGE [facility] ARE MEDIC ARE [employer] TAGE [address] [address], [place] [address] tel:[phone] [id number] TRICAR E TRICA RE [address] [address] [id number] Problems Condition ICD9 code ICD10 code SNOMED code Start Date End Date S tatus Paroxysmal atrial fibrillation I48.0 05/27/2023 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 06/14/2024 Active [...] obstructive pulmonary disease, unspecified J44.9 06/02/2023 Active 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 Z79.51 05/27/2023 [...] with diabetic neuropathy, unspecified E11.40 06/02/2023 Active [facility] (current) use of insulin Z79.4 05/27/2023 Active [facility] (current) use of oral hypoglycemic drugs Z79.84 [...] 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 11/18/2024 Active [facility] (current) use of insulin Z79.4 11/18/2024 Active [facility] (current) use of oral hypoglycemic drugs Z79.84 11/18/2024 Active Hypertensive heart and chronic kidney disease with heart failure and stage 1 through stage 4 chronic kidney disease, or unspecified chronic kidney disease I13.0 11/18/2024 Active Heart failure, unspecified I50.9 11/18/2024 Active Chronic kidney disease, stage 3 unspecified N18.30 11/18/2024 Activ e Chronic obstructive pulmonary disease, unspecified J44.9 11/18/2024 Active 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 Z79.51 11/18/2024 Activ e Alzheimer's disease, unspecified G30.9 11/18/2024 Active Other iron deficiency anemias D50.8 11/18/2024 Active Mixed hyperlipidemia E78.2 11/18/2024 Active Insomnia, unspecified G47.00 11/18/2024 Active Moderate protein-calorie malnutrition E44.0 11/18/2024 Active Gastro-esophageal reflux disease without esophagitis K21.9 11/18/2024 Active Type 2 diabetes mellitus with hyperglycemia E11.65 11/21/2024 Active Crossing vessel and stricture of ureter without hydronephrosis N13.5 11/18/2024 Ac tive Other artificial openings of urinary tract status Z93.6 11/18/2024 A ctive Osteomyelitis of vertebra, lumbar region M46.26 12/02/2024 A ctive Urinary tract infection, site not specified N39.0 12/02/2024 Active Encounter for adjustment and management of vascular access device Z45.2 12/02/2024 Ac tive Spinal stenosis, lumbar region with neurogenic claudication M48.062 12/02/2024 Active Muscle weakness (generalized) M62.81 12/09/2024 Active Pressure ulcer of sacral region, stage 2 L89.152 12/06/2024 Active Personal history of malignant neoplasm of prostate Z85.46 11/18/2024 Active Personal history of irradiation Z92.3 12/28/2024 Active Other specified disorders of bladder N32.89 12/28/2024 Active Hydronephrosis with ureteral stricture, not elsewhere classified N13.1 12/28/2024 Acti ve Other chronic pain G89.29 12/28/2024 Ac tive Chronic diastolic (congestive) heart failure I50.32 12/28/2024 Active Dementia 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 Refere nce Range Blood chemistry[[id number]] Glucose [Mass/volume] in Serum or Plasma [2345-7] 02/06/2025 05:39 PM 204 mg/dL N Blood chemistry[] Glucose [Mass/volume] in Serum or Plasma [5-7] 02/06/2025 09:47 AM 199 mg/dL N Blood chemistry[[id number]] Glucose [Mass/volume] in Serum or Plasma [2345-7] 02/06/2025 01:18 PM 147 mg/dL N Blood chemistry[[id number]] Glucose [Mass/volume] in Serum or Plasma [2345-7] 02/05/2025 01:07 PM 264 mg/dL N Blood chemistry[[id number]] Glucose [Mass/volume] in Serum or Plasma [2345-7] 02/05/2025 03:58 PM 251 mg/dL N Blood chemistry[[id number]] Glucose [Mass/volume] in Serum or Plasma [2345-7] 02/05/2025 09:28 AM 231 mg/dL N Blood chemistry[[id number]] Glucose [Mass/volume] in Serum or Plasma [2345-7] 02/05/2025 11:24 AM 207 mg/dL N Blood chemistry[[id number]] Glucose [Mass/volume] in Serum or Plasma [2345-7] 02/04/2025 12:58 PM 255 mg/dL N Blood chemistry[[id number]] Glucose [Mass/volume] in Serum or Plasma [2345-7] 02/04/2025 04:34 PM 280 mg/dL N Blood chemistry[[id number]] Glucose [Mass/volume] in Serum or Plasma [2345-7] 02/04/2025 09:16 AM 252 mg/dL N Blood chemistry[[id number]] Glucose [Mass/volume] in Serum or Plasma [2345-7] 02/04/2025 11:47 AM 177 mg/dL N Blood chemistry[[id number]] Glucose [Mass/volume] in Serum or Plasma [2345-7] 02/03/2025 12:37 PM 274 mg/dL N Blood chemistry[[id number]] Glucose [Mass/volume] in Serum or Plasma [2345-7] 02/03/2025 04:21 PM 265 mg/dL N Blood chemistry[[id number]] Glucose [Mass/volume] in Serum or Plasma [2345-7] 02/03/2025 09:29 AM 262 mg/dL N Blood chemistry[[id number]] Glucose [Mass/volume] in Serum or Plasma [2345-7] 02/03/2025 11:12 AM 263 mg/dL N Blood chemistry[[id number]] Glucose [Mass/volume] in Serum or Plasma [2345-7] 02/02/2025 01:06 PM 279 mg/dL N Blood chemistry[[id number]] Glucose [Mass/volume] in Serum or Plasma [2345-7] 02/02/2025 04:15 PM 229 mg/dL N Blood chemistry[[id number]] Glucose [Mass/volume] in Serum or Plasma [2345-7] 02/02/2025 09:47 AM 306 mg/dL N Blood chemistry[[id number]] Glucose [Mass/volume] in Serum or Plasma [2345-7] 02/02/2025 11:22 AM 208 mg/dL N Blood chemistry[[id number]] Glucose [Mass/volume] in Serum or Plasma [2345-7] 02/01/2025 12:17 PM 223 mg/dL N Blood chemistry[[id number]] Glucose [Mass/volume] in Serum or Plasma [2345-7] 02/01/2025 04:44 PM 268 mg/dL N Blood chemistry[[id number]] Glucose [Mass/volume] in Serum or Plasma [2345-7] 02/01/2025 11:03 AM 212 mg/dL N Blood chemistry[[id number]] Glucose [Mass/volume] in Serum or Plasma [2345-7] 01/31/2025 02:13 PM 243 mg/dL N Blood chemistry[[id number]] Glucose [Mass/volume] in Serum or Plasma [2345-7] 01/31/2025 04:50 PM 270 mg/dL N Blood chemistry[[id number]] Glucose [Mass/volume] in Serum or Plasma [2345-7] 01/31/2025 09:30 AM 252 mg/dL N Blood chemistry[[id number]] Glucose [Mass/volume] in Serum or Plasma [2345-7] 01/31/2025 12:47 PM 182 mg/dL N Blood chemistry[[id number]] Glucose [Mass/volume] in Serum or Plasma [2345-7] 01/31/2025 08:01 AM 196 mg/dL N Blood chemistry[[id number]] Glucose [Mass/volume] in Serum or Plasma [2345-7] 01/30/2025 04:31 PM 230 mg/dL N Blood chemistry[[id number]] Glucose [Mass/volume] in Serum or Plasma [2345-7] 01/30/2025 09:23 AM 243 mg/dL N Blood chemistry[[id number]] Glucose [Mass/volume] in Serum or Plasma [2345-7] 01/30/2025 12:05 PM 213 mg/dL N Blood chemistry[[id number]] Glucose [Mass/volume] in Serum or Plasma [2345-7] 01/29/2025 01:49 PM 278 mg/dL N Blood chemistry[[id number]] Glucose [Mass/volume] in Serum or Plasma [2345-7] 01/29/2025 10:40 AM 201 mg/dL N Blood chemistry[[id number]] Glucose [Mass/volume] in Serum or Plasma [2345-7] 01/29/2025 05:07 PM 287 mg/dL N Blood chemistry[[id number]] Glucose [Mass/volume] in Serum or Plasma [2345-7] 01/29/2025 01:36 PM 199 mg/dL N Blood chemistry[[id number]] Glucose [Mass/volume] in Serum or Plasma [2345-7] 01/28/2025 02:28 PM 204 mg/dL N Blood chemistry[[id number]] Glucose [Mass/volume] in Serum or Plasma [2345-7] 01/28/2025 04:35 PM 293 mg/dL N Blood chemistry[[id number]] Glucose [Mass/volume] in Serum or Plasma [2345-7] 01/28/2025 10:07 AM 232 mg/dL N Blood chemistry[[id number]] Glucose [Mass/volume] in Serum or Plasma [2345-7] 01/28/2025 01:30 PM 231 mg/dL N Blood chemistry[[id number]] Glucose [Mass/volume] in Serum or Plasma [2345-7] 01/27/2025 01:57 PM 289 mg/dL N Blood chemistry[[id number]] Glucose [Mass/volume] in Serum or Plasma [2345-7] 01/27/2025 05:11 PM 320 mg/dL N Blood chemistry[[id number]] Glucose [Mass/volume] in Serum or Plasma [2345-7] 01/27/2025 09:50 AM 211 mg/dL N Blood chemistry[[id number]] Glucose [Mass/volume] in Serum or Plasma [2345-7] 01/27/2025 12:50 PM 256 mg/dL N Blood chemistry[[id number]] Glucose [Mass/volume] in Serum or Plasma [2345-7] 01/26/2025 12:40 PM 292 mg/dL N Blood chemistry[[id number]] Glucose [Mass/volume] in Serum or Plasma [2345-7] 01/26/2025 04:26 PM 262 mg/dL N Blood chemistry[[id number]] Glucose [Mass/volume] in Serum or Plasma [2345-7] 01/26/2025 09:09 AM 263 mg/dL N Blood chemistry[[id number]] Glucose [Mass/volume] in Serum or Plasma [2345-7] 01/26/2025 11:30 AM 232 mg/dL N Blood chemistry[[id number]] Glucose [Mass/volume] in Serum or Plasma [2345-7] 01/25/2025 02:51 PM 261 mg/dL N Blood chemistry[[id number]] Glucose [Mass/volume] in Serum or Plasma [2345-7] 01/25/2025 04:20 PM 290 mg/dL N Blood chemistry[[id number]] Glucose [Mass/volume] in Serum or Plasma [2345-7] 01/25/2025 09:17 AM 250 mg/dL N Blood chemistry[[id number]] Glucose [Mass/volume] in Serum or Plasma [2345-7] 01/25/2025 11:24 AM 286 mg/dL N Blood chemistry[[id number]] Glucose [Mass/volume] in Serum or Plasma [2345-7] 01/24/2025 12:59 PM 232 mg/dL N Blood chemistry[[id number]] Glucose [Mass/volume] in Serum or Plasma [2345-7] 01/24/2025 04:09 PM 220 mg/dL N Blood chemistry[[id number]] Glucose [Mass/volume] in Serum or Plasma [2345-7] 01/24/2025 09:13 AM 236 mg/dL N Blood chemistry[[id number]] Glucose [Mass/volume] in Serum or Plasma [2345-7] 01/24/2025 12:02 PM 200 mg/dL N Blood chemistry[[id number]] Glucose [Mass/volume] in Serum or Plasma [2345-7] 01/23/2025 11:57 AM 235 mg/dL N Blood chemistry[[id number]] Glucose [Mass/volume] in Serum or Plasma [2345-7] 01/23/2025 04:32 PM 204 mg/dL N Blood chemistry[[id number]] Glucose [Mass/volume] in Serum or Plasma [2345-7] 01/23/2025 09:27 AM 193 mg/dL N Blood chemistry[[id number]] Glucose [Mass/volume] in Serum or Plasma [2345-7] 01/23/2025 12:33 PM 199 mg/dL N Blood chemistry[[id number]] Glucose [Mass/volume] in Serum or Plasma [2345-7] 01/22/2025 01:42 PM 180 mg/dL N Blood chemistry[[id number]] Glucose [Mass/volume] in Serum or Plasma [2345-7] 01/22/2025 04:08 PM 246 mg/dL N Blood chemistry[[id number]] Glucose [Mass/volume] in Serum or Plasma [2345-7] 01/22/2025 09:01 AM 193 mg/dL N Blood chemistry[[id number]] Glucose [Mass/volume] in Serum or Plasma [2345-7] 01/22/2025 11:26 AM 194 mg/dL N Blood chemistry[[id number]] Glucose [Mass/volume] in Serum or Plasma [2345-7] 01/21/2025 01:27 PM 226 mg/dL N Blood chemistry[[id number]] Glucose [Mass/volume] in Serum or Plasma [2345-7] 01/21/2025 04:16 PM 212 mg/dL N Blood chemistry[[id number]] Glucose [Mass/volume] in Serum or Plasma [2345-7] 01/21/2025 09:12 AM 187 mg/dL N Blood chemistry[[id number]] Glucose [Mass/volume] in Serum or Plasma [2345-7] 01/21/2025 11:24 AM 181 mg/dL N Blood chemistry[[id number]] Glucose [Mass/volume] in Serum or Plasma [2345-7] 01/20/2025 01:15 PM 209 mg/dL N Blood chemistry[[id number]] Glucose [Mass/volume] in Serum or Plasma [2345-7] 01/20/2025 04:17 PM 250 mg/dL N Blood chemistry[[id number]] Glucose [Mass/volume] in Serum or Plasma [2345-7] 01/20/2025 09:23 AM 228 mg/dL N Blood chemistry[[id number]] Glucose [Mass/volume] in Serum or Plasma [2345-7] 01/20/2025 11:38 AM 179 mg/dL N Blood chemistry[[id number]] Glucose [Mass/volume] in Serum or Plasma [2345-7] 01/19/2025 01:30 PM 335 mg/dL N Blood chemistry[[id number]] Glucose [Mass/volume] in Serum or Plasma [2345-7] 01/19/2025 04:32 PM 222 mg/dL N Blood chemistry[[id number]] Glucose [Mass/volume] in Serum or Plasma [2345-7] 01/19/2025 09:24 AM 284 mg/dL N Blood chemistry[[id number]] Glucose [Mass/volume] in Serum or Plasma [2345-7] 01/19/2025 11:36 AM 166 mg/dL N Blood chemistry[[id number]] Glucose [Mass/volume] in Serum or Plasma [2345-7] 01/18/2025 03:56 PM 194 mg/dL N Blood chemistry[[id number]] Glucose [Mass/volume] in Serum or Plasma [2345-7] 01/18/2025 05:21 PM 178 mg/dL N Blood chemistry[[id number]] Glucose [Mass/volume] in Serum or Plasma [2345-7] 01/18/2025 09:43 AM 183 mg/dL N Blood chemistry[[id number]] Glucose [Mass/volume] in Serum or Plasma [2345-7] 01/18/2025 11:25 AM 156 mg/dL N Blood chemistry[[id number]] Glucose [Mass/volume] in Serum or Plasma [2345-7] 01/17/2025 01:33 PM 169 mg/dL N Blood chemistry[[id number]] Glucose [Mass/volume] in Serum or Plasma [2345-7] 01/17/2025 04:53 PM 200 mg/dL N Blood chemistry[[id number]] Glucose [Mass/volume] in Serum or Plasma [2345-7] 01/17/2025 09:01 AM 229 mg/dL N Blood chemistry[[id number]] Glucose [Mass/volume] in Serum or Plasma [2345-7] 01/17/2025 01:40 PM 180 mg/dL N Blood chemistry[[id number]] Glucose [Mass/volume] in Serum or Plasma [2345-7] 01/16/2025 11:40 AM 173 mg/dL N Blood chemistry[[id number]] Glucose [Mass/volume] in Serum or Plasma [2345-7] 01/16/2025 05:58 PM 198 mg/dL N Blood chemistry[[id number]] Glucose [Mass/volume] in Serum or Plasma [2345-7] 01/16/2025 09:41 AM 199 mg/dL N Blood chemistry[[id number]] Glucose [Mass/volume] in Serum or Plasma [2345-7] 01/16/2025 12:20 PM 187 mg/dL N Blood chemistry[[id number]] Glucose [Mass/volume] in Serum or Plasma [2345-7] 01/15/2025 01:57 PM 171 mg/dL N Blood chemistry[[id number]] Glucose [Mass/volume] in Serum or Plasma [2345-7] 01/15/2025 04:33 PM 220 mg/dL N Blood chemistry[[id number]] Glucose [Mass/volume] in Serum or Plasma [2345-7] 01/15/2025 09:24 AM 204 mg/dL N Blood chemistry[[id number]] Glucose [Mass/volume] in Serum or Plasma [2345-7] 01/15/2025 11:49 AM 170 mg/dL N Blood chemistry[[id number]] Glucose [Mass/volume] in Serum or Plasma [2345-7] 01/14/2025 02:42 PM 174 mg/dL N Blood chemistry[[id number]] Glucose [Mass/volume] in Serum or Plasma [2345-7] 01/14/2025 03:57 PM 233 mg/dL N Blood chemistry[[id number]] Glucose [Mass/volume] in Serum or Plasma [2345-7] 01/14/2025 09:21 AM 232 mg/dL N Blood chemistry[[id number]] Glucose [Mass/volume] in Serum or Plasma [2345-7] 01/14/2025 12:00 PM 126 mg/dL N Blood chemistry[[id number]] Glucose [Mass/volume] in Serum or Plasma [2345-7] 01/13/2025 04:03 PM 151 mg/dL N Blood chemistry[[id number]] Glucose [Mass/volume] in Serum or Plasma [2345-7] 01/13/2025 04:04 PM 233 mg/dL N Blood chemistry[[id number]] Glucose [Mass/volume] in Serum or Plasma [2345-7] 01/13/2025 09:33 AM 166 mg/dL N Blood chemistry[[id number]] Glucose [Mass/volume] in Serum or Plasma [2345-7] 01/13/2025 12:55 PM 179 mg/dL N Blood chemistry[[id number]] Glucose [Mass/volume] in Serum or Plasma [2345-7] 01/12/2025 01:41 PM 271 mg/dL N Blood chemistry[[id number]] Glucose [Mass/volume] in Serum or Plasma [2345-7] 01/12/2025 04:28 PM 239 mg/dL N Blood chemistry[[id number]] Glucose [Mass/volume] in Serum or Plasma [2345-7] 01/12/2025 09:00 AM 248 mg/dL N Blood chemistry[[id number]] Glucose [Mass/volume] in Serum or Plasma [2345-7] 01/12/2025 11:26 AM 237 mg/dL N Blood chemistry[[id number]] Glucose [Mass/volume] in Serum or Plasma [2345-7] 01/11/2025 01:44 PM 217 mg/dL N Blood chemistry[[id number]] Glucose [Mass/volume] in Serum or Plasma [2345-7] 01/11/2025 03:59 PM 312 mg/dL N Blood chemistry[[id number]] Glucose [Mass/volume] in Serum or Plasma [2345-7] 01/11/2025 09:09 AM 250 mg/dL N Blood chemistry[[id number]] Glucose [Mass/volume] in Serum or Plasma [2345-7] 01/11/2025 11:35 AM 243 mg/dL N Blood chemistry[[id number]] Glucose [Mass/volume] in Serum or Plasma [2345-7] 01/10/2025 01:11 PM 263 mg/dL N Blood chemistry[[id number]] Glucose [Mass/volume] in Serum or Plasma [2345-7] 01/10/2025 04:07 PM 311 mg/dL N Blood chemistry[[id number]] Glucose [Mass/volume] in Serum or Plasma [2345-7] 01/10/2025 09:31 AM 322 mg/dL N Blood chemistry[[id number]] Glucose [Mass/volume] in Serum or Plasma [2345-7] 01/10/2025 11:30 AM 252 mg/dL N Blood chemistry[[id number]] Glucose [Mass/volume] in Serum or Plasma [2345-7] 01/09/2025 03:34 PM 323 mg/dL N Blood chemistry[[id number]] Glucose [Mass/volume] in Serum or Plasma [2345-7] 01/09/2025 10:48 AM 359 mg/dL N Blood chemistry[[id number]] Glucose [Mass/volume] in Serum or Plasma [2345-7] 01/09/2025 04:56 PM 332 mg/dL N Blood chemistry[[id number]] Glucose [Mass/volume] in Serum or Plasma [2345-7] 01/09/2025 12:39 PM 242 mg/dL N Blood chemistry[[id number]] Glucose [Mass/volume] in Serum or Plasma [2345-7] 01/08/2025 01:51 PM 217 mg/dL N Blood chemistry[[id number]] Glucose [Mass/volume] in Serum or Plasma [2345-7] 01/08/2025 04:12 PM 234 mg/dL N Blood chemistry[[id number]] Glucose [Mass/volume] in Serum or Plasma [2345-7] 01/08/2025 09:05 AM 283 mg/dL N Blood chemistry[[id number]] Glucose [Mass/volume] in Serum or Plasma [2345-7] 01/08/2025 11:37 AM 210 mg/dL N Blood chemistry[[id number]] Glucose [Mass/volume] in Serum or Plasma [2345-7] 01/07/2025 02:34 PM 241 mg/dL N Blood chemistry[[id number]] Glucose [Mass/volume] in Serum or Plasma [2345-7] 01/07/2025 04:09 PM 213 mg/dL N Blood chemistry[[id number]] Glucose [Mass/volume] in Serum or Plasma [2345-7] 01/07/2025 09:13 AM 267 mg/dL N Blood chemistry[[id number]] Glucose [Mass/volume] in Serum or Plasma [2345-7] 01/06/2025 04:18 PM 323 mg/dL N Blood chemistry[[id number]] Glucose [Mass/volume] in Serum or Plasma [2345-7] 01/06/2025 11:50 AM 217 mg/dL N Blood chemistry[[id number]] Glucose [Mass/volume] in Serum or Plasma [2345-7] 01/05/2025 01:21 PM 228 mg/dL N Blood chemistry[[id number]] Glucose [Mass/volume] in Serum or Plasma [2345-7] 01/05/2025 04:15 PM 270 mg/dL N Blood chemistry[[id number]] Glucose [Mass/volume] in Serum or Plasma [2345-7] 01/05/2025 09:14 AM 216 mg/dL N Blood chemistry[[id number]] Glucose [Mass/volume] in Serum or Plasma [2345-7] 01/05/2025 11:31 AM 265 mg/dL N Blood chemistry[[id number]] Glucose [Mass/volume] in Serum or Plasma [2345-7] 01/04/2025 12:39 PM 270 mg/dL N Blood chemistry[[id number]] Glucose [Mass/volume] in Serum or Plasma [2345-7] 01/04/2025 03:56 PM 188 mg/dL N Blood chemistry[[id number]] Glucose [Mass/volume] in Serum or Plasma [2345-7] 01/04/2025 10:39 AM 289 mg/dL N Blood chemistry[[id number]] Glucose [Mass/volume] in Serum or Plasma [2345-7] 01/04/2025 01:15 PM 190 mg/dL N Blood chemistry[[id number]] Glucose [Mass/volume] in Serum or Plasma [2345-7] 01/04/2025 05:09 PM 234 mg/dL N Blood chemistry[[id number]] Glucose [Mass/volume] in Serum or Plasma [2345-7] 01/03/2025 04:36 PM 223 mg/dL N Blood chemistry[[id number]] Glucose [Mass/volume] in Serum or Plasma [2345-7] 01/03/2025 08:58 AM 219 mg/dL N Blood chemistry[[id number]] Glucose [Mass/volume] in Serum or Plasma [2345-7] 01/03/2025 11:28 AM 222 mg/dL N Blood chemistry[[id number]] Glucose [Mass/volume] in Serum or Plasma [2345-7] 01/02/2025 12:03 PM 267 mg/dL N Blood chemistry[[id number]] Glucose [Mass/volume] in Serum or Plasma [2345-7] 01/02/2025 04:39 PM 292 mg/dL N Blood chemistry[[id number]] Glucose [Mass/volume] in Serum or Plasma [2345-7] 01/02/2025 09:14 AM 137 mg/dL N Blood chemistry[[id number]] Glucose [Mass/volume] in Serum or Plasma [2345-7] 01/02/2025 02:11 PM 103 mg/dL N Blood chemistry[[id number]] Glucose [Mass/volume] in Serum or Plasma [2345-7] 01/01/2025 12:42 PM 200 mg/dL N Blood chemistry[[id number]] Glucose [Mass/volume] in Serum or Plasma [2345-7] 01/01/2025 05:13 PM 282 mg/dL N Blood chemistry[[id number]] Glucose [Mass/volume] in Serum or Plasma [2345-7] 01/01/2025 12:11 PM 225 mg/dL N Blood chemistry[[id number]] Glucose [Mass/volume] in Serum or Plasma [2345-7] 01/01/2025 09:59 AM 311 mg/dL N Blood chemistry[[id number]] Glucose [Mass/volume] in Serum or Plasma [2345-7] 12/31/2024 01:45 PM 241 mg/dL N Blood chemistry[[id number]] Glucose [Mass/volume] in Serum or Plasma [2345-7] 12/31/2024 12:03 PM 295 mg/dL N Blood chemistry[[id number]] Glucose [Mass/volume] in Serum or Plasma [2345-7] 12/31/2024 09:29 AM 286 mg/dL N Blood chemistry[[id number]] Glucose [Mass/volume] in Serum or Plasma [2345-7] 12/31/2024 06:39 AM 368 mg/dL N Tuberculosis reaction wheal[ 48285-2] Tuberculosis reaction wheal [60288-3] 12/29/2024 01:55 PM 0 mm NEG Blood chemistry[[id number]] Glucose [Mass/volume] in Serum or Plasma [2345-7] 12/30/2024 11:47 AM 299 mg/dL N Blood chemistry[[id number]] Glucose [Mass/volume] in Serum or Plasma [2345-7] 12/30/2024 03:33 PM 391 mg/dL N Blood chemistry[[id number]] Glucose [Mass/volume] in Serum or Plasma [2345-7] 12/30/2024 09:14 AM 394 mg/dL N Blood chemistry[[id number]] Glucose [Mass/volume] in Serum or Plasma [2345-7] 12/30/2024 11:36 AM 248 mg/dL N Blood chemistry[[id number]] Glucose [Mass/volume] in Serum or Plasma [2345-7] 12/29/2024 01:19 PM 299 mg/dL N Blood chemistry[[id number]] Glucose [Mass/volume] in Serum or Plasma [2345-7] 12/29/2024 04:17 PM 311 mg/dL N Blood chemistry[[id number]] Glucose [Mass/volume] in Serum or Plasma [2345-7] 12/29/2024 09:16 AM 335 mg/dL N Tuberculosis reaction wheal[ 32626-9] Tuberculosis reaction wheal [09155-6] 12/29/2024 01:55 PM See note TB test Blood chemistry[[id number]] Glucose [Mass/volume] in Serum or Plasma [2345-7] 12/29/2024 10:21 AM 311 mg/dL N Blood chemistry[[id number]] Glucose [Mass/volume] in Serum or Plasma [2345-7] 12/20/2024 11:30 AM 245 mg/dL N Blood chemistry[[id number]] Glucose [Mass/volume] in Serum or Plasma [2345-7] 12/19/2024 01:23 PM 249 mg/dL N Blood chemistry[[id number]] Glucose [Mass/volume] in Serum or Plasma [2345-7] 12/19/2024 04:13 PM 286 mg/dL N Blood chemistry[[id number]] Glucose [Mass/volume] in Serum or Plasma [2345-7] 12/19/2024 08:24 AM 193 mg/dL N Blood chemistry[[id number]] Glucose [Mass/volume] in Serum or Plasma [2345-7] 12/19/2024 01:16 PM 200 mg/dL N Blood chemistry[[id number]] Glucose [Mass/volume] in Serum or Plasma [2345-7] 12/18/2024 12:48 PM 288 mg/dL N Blood chemistry[[id number]] Glucose [Mass/volume] in Serum or Plasma [2345-7] 12/18/2024 10:35 AM 194 mg/dL N Blood chemistry[[id number]] Glucose [Mass/volume] in Serum or Plasma [2345-7] 12/18/2024 04:18 PM 238 mg/dL N Blood chemistry[[id number]] Glucose [Mass/volume] in Serum or Plasma [2345-7] 12/18/2024 12:56 PM 214 mg/dL N Blood chemistry[[id number]] Glucose [Mass/volume] in Serum or Plasma [2345-7] 12/17/2024 12:58 PM 200 mg/dL N Blood chemistry[[id number]] Glucose [Mass/volume] in Serum or Plasma [2345-7] 12/17/2024 04:59 PM 235 mg/dL N Blood chemistry[[id number]] Glucose [Mass/volume] in Serum or Plasma [2345-7] 12/17/2024 10:19 AM 228 mg/dL N Blood chemistry[[id number]] Glucose [Mass/volume] in Serum or Plasma [2345-7] 12/17/2024 11:45 AM 198 mg/dL N Blood chemistry[[id number]] Glucose [Mass/volume] in Serum or Plasma [2345-7] 12/17/2024 06:47 AM 189 mg/dL N Blood chemistry[[id number]] Glucose [Mass/volume] in Serum or Plasma [2345-7] 12/16/2024 04:49 PM 152 mg/dL N Blood chemistry[[id number]] Glucose [Mass/volume] in Serum or Plasma [2345-7] 12/16/2024 09:26 AM 172 mg/dL N Blood chemistry[[id number]] Glucose [Mass/volume] in Serum or Plasma [2345-7] 12/16/2024 11:56 AM 227 mg/dL N Blood chemistry[[id number]] Glucose [Mass/volume] in Serum or Plasma [2345-7] 12/15/2024 01:02 PM 235 mg/dL N Blood chemistry[[id number]] Glucose [Mass/volume] in Serum or Plasma [2345-7] 12/15/2024 04:51 PM 202 mg/dL N Blood chemistry[[id number]] Glucose [Mass/volume] in Serum or Plasma [2345-7] 12/15/2024 09:10 AM 209 mg/dL N Blood chemistry[[id number]] Glucose [Mass/volume] in Serum or Plasma [2345-7] 12/15/2024 11:44 AM 200 mg/dL N Blood chemistry[[id number]] Glucose [Mass/volume] in Serum or Plasma [2345-7] 12/14/2024 03:10 PM 191 mg/dL N Blood chemistry[[id number]] Glucose [Mass/volume] in Serum or Plasma [2345-7] 12/14/2024 04:16 PM 159 mg/dL N Blood chemistry[[id number]] Glucose [Mass/volume] in Serum or Plasma [2345-7] 12/14/2024 09:12 AM 188 mg/dL N Blood chemistry[[id number]] Glucose [Mass/volume] in Serum or Plasma [2345-7] 12/14/2024 11:48 AM 256 mg/dL N Blood chemistry[[id number]] Glucose [Mass/volume] in Serum or Plasma [2345-7] 12/13/2024 11:12 AM 201 mg/dL N Blood chemistry[[id number]] Glucose [Mass/volume] in Serum or Plasma [2345-7] 12/13/2024 09:03 AM 242 mg/dL N Blood chemistry[[id number]] Glucose [Mass/volume] in Serum or Plasma [2345-7] 12/13/2024 04:04 PM 281 mg/dL N Blood chemistry[[id number]] Glucose [Mass/volume] in Serum or Plasma [2345-7] 12/13/2024 11:54 AM 212 mg/dL N Blood chemistry[[id number]] Glucose [Mass/volume] in Serum or Plasma [2345-7] 12/13/2024 09:06 AM 305 mg/dL N Blood chemistry[[id number]] Glucose [Mass/volume] in Serum or Plasma [2345-7] 12/12/2024 04:42 PM 269 mg/dL N Blood chemistry[[id number]] Glucose [Mass/volume] in Serum or Plasma [2345-7] 12/12/2024 11:33 AM 203 mg/dL N Blood chemistry[[id number]] Glucose [Mass/volume] in Serum or Plasma [2345-7] 12/12/2024 09:04 AM 275 mg/dL N Blood chemistry[[id number]] Glucose [Mass/volume] in Serum or Plasma [2345-7] 12/11/2024 03:02 PM 278 mg/dL N Blood chemistry[[id number]] Glucose [Mass/volume] in Serum or Plasma [2345-7] 12/11/2024 09:17 AM 248 mg/dL N Blood chemistry[[id number]] Glucose [Mass/volume] in Serum or Plasma [2345-7] 12/11/2024 04:53 PM 250 mg/dL N Blood chemistry[[id number]] Glucose [Mass/volume] in Serum or Plasma [2345-7] 12/11/2024 11:52 AM 259 mg/dL N Blood chemistry[[id number]] Glucose [Mass/volume] in Serum or Plasma [2345-7] 12/10/2024 05:50 PM 263 mg/dL N Blood chemistry[[id number]] Glucose [Mass/volume] in Serum or Plasma [2345-7] 12/10/2024 03:17 PM 284 mg/dL N Blood chemistry[[id number]] Glucose [Mass/volume] in Serum or Plasma [2345-7] 12/10/2024 12:38 PM 221 mg/dL N Blood chemistry[[id number]] Glucose [Mass/volume] in Serum or Plasma [2345-7] 12/10/2024 10:54 AM 245 mg/dL N Blood chemistry[[id number]] Glucose [Mass/volume] in Serum or Plasma [2345-7] 12/09/2024 02:23 PM 214 mg/dL N Blood chemistry[[id number]] Glucose [Mass/volume] in Serum or Plasma [2345-7] 12/09/2024 09:57 AM 223 mg/dL N Blood chemistry[[id number]] Glucose [Mass/volume] in Serum or Plasma [2345-7] 12/09/2024 05:07 PM 225 mg/dL N Blood chemistry[[id number]] Glucose [Mass/volume] in Serum or Plasma [2345-7] 12/09/2024 12:42 PM 233 mg/dL N Blood chemistry[[id number]] Glucose [Mass/volume] in Serum or Plasma [2345-7] 12/08/2024 12:54 PM 297 mg/dL N Blood chemistry[[id number]] Glucose [Mass/volume] in Serum or Plasma [2345-7] 12/08/2024 10:19 AM 234 mg/dL N Blood chemistry[[id number]] Glucose [Mass/volume] in Serum or Plasma [2345-7] 12/08/2024 06:40 PM 229 mg/dL N Blood chemistry[[id number]] Glucose [Mass/volume] in Serum or Plasma [2345-7] 12/08/2024 05:22 PM 189 mg/dL N Blood chemistry[[id number]] Glucose [Mass/volume] in Serum or Plasma [2345-7] 12/08/2024 12:40 PM 227 mg/dL N Blood chemistry[[id number]] Glucose [Mass/volume] in Serum or Plasma [2345-7] 12/07/2024 11:23 AM 199 mg/dL N Blood chemistry[[id number]] Glucose [Mass/volume] in Serum or Plasma [2345-7] 12/07/2024 06:30 PM 186 mg/dL N Blood chemistry[[id number]] Glucose [Mass/volume] in Serum or Plasma [2345-7] 12/07/2024 02:55 PM 306 mg/dL N Blood chemistry[[id number]] Glucose [Mass/volume] in Serum or Plasma [2345-7] 12/06/2024 02:00 PM 316 mg/dL N Blood chemistry[[id number]] Glucose [Mass/volume] in Serum or Plasma [2345-7] 12/06/2024 10:16 AM 317 mg/dL N Blood chemistry[[id number]] Glucose [Mass/volume] in Serum or Plasma [2345-7] 12/06/2024 05:22 PM 205 mg/dL N Blood chemistry[[id number]] Glucose [Mass/volume] in Serum or Plasma [2345-7] 12/06/2024 01:56 PM 281 mg/dL N Blood chemistry[[id number]] Glucose [Mass/volume] in Serum or Plasma [2345-7] 12/05/2024 06:08 PM 217 mg/dL N Blood chemistry[[id number]] Glucose [Mass/volume] in Serum or Plasma [2345-7] 12/05/2024 03:22 PM 326 mg/dL N Blood chemistry[[id number]] Glucose [Mass/volume] in Serum or Plasma [2345-7] 12/05/2024 01:52 PM 188 mg/dL N Blood chemistry[[id number]] Glucose [Mass/volume] in Serum or Plasma [2345-7] 12/05/2024 11:03 AM 288 mg/dL N Blood chemistry[[id number]] Glucose [Mass/volume] in Serum or Plasma [2345-7] 12/04/2024 03:22 PM 378 mg/dL N Blood chemistry[[id number]] Glucose [Mass/volume] in Serum or Plasma [2345-7] 12/04/2024 11:50 AM 326 mg/dL N Blood chemistry[[id number]] Glucose [Mass/volume] in Serum or Plasma [2345-7] 12/04/2024 06:03 PM 318 mg/dL N Blood chemistry[[id number]] Glucose [Mass/volume] in Serum or Plasma [2345-7] 12/04/2024 01:47 PM 346 mg/dL N Blood chemistry[[id number]] Glucose [Mass/volume] in Serum or Plasma [2345-7] 12/03/2024 02:46 PM 300 mg/dL N Blood chemistry[[id number]] Glucose [Mass/volume] in Serum or Plasma [2345-7] 12/03/2024 11:02 AM 398 mg/dL N Blood chemistry[[id number]] Glucose [Mass/volume] in Serum or Plasma [2345-7] 12/03/2024 06:00 PM 400 mg/dL N Blood chemistry[[id number]] Glucose [Mass/volume] in Serum or Plasma [2345-7] 12/03/2024 02:45 PM 270 mg/dL N Blood chemistry[[id number]] Glucose [Mass/volume] in Serum or Plasma [2345-7] 12/02/2024 01:49 PM 281 mg/dL N Blood chemistry[[id number]] Glucose [Mass/volume] in Serum or Plasma [2345-7] 11/25/2024 04:06 PM 385 mg/dL N Blood chemistry[[id number]] Glucose [Mass/volume] in Serum or Plasma [2345-7] 11/25/2024 10:03 AM 267 mg/dL N Blood chemistry[[id number]] Glucose [Mass/volume] in Serum or Plasma [2345-7] 11/25/2024 05:14 PM 222 mg/dL N Blood chemistry[[id number]] Glucose [Mass/volume] in Serum or Plasma [2345-7] 11/25/2024 11:57 AM 215 mg/dL N Blood chemistry[[id number]] Glucose [Mass/volume] in Serum or Plasma [2345-7] 11/24/2024 12:53 PM 213 mg/dL N Blood chemistry[[id number]] Glucose [Mass/volume] in Serum or Plasma [2345-7] 11/24/2024 10:16 AM 395 mg/dL N Blood chemistry[[id number]] Glucose [Mass/volume] in Serum or Plasma [2345-7] 11/24/2024 05:39 PM 222 mg/dL N Blood chemistry[[id number]] Glucose [Mass/volume] in Serum or Plasma [2345-7] 11/24/2024 12:52 PM 275 mg/dL N Blood chemistry[[id number]] Glucose [Mass/volume] in Serum or Plasma [2345-7] 11/23/2024 02:43 PM 248 mg/dL N Blood chemistry[[id number]] Glucose [Mass/volume] in Serum or Plasma [2345-7] 11/23/2024 09:57 AM 193 mg/dL N Blood chemistry[[id number]] Glucose [Mass/volume] in Serum or Plasma [2345-7] 11/23/2024 04:28 PM 218 mg/dL N Blood chemistry[[id number]] Glucose [Mass/volume] in Serum or Plasma [2345-7] 11/23/2024 11:36 AM 256 mg/dL N Blood chemistry[[id number]] Glucose [Mass/volume] in Serum or Plasma [2345-7] 11/22/2024 01:06 PM 359 mg/dL N Blood chemistry[[id number]] Glucose [Mass/volume] in Serum or Plasma [2345-7] 11/22/2024 11:07 AM 312 mg/dL N Blood chemistry[[id number]] Glucose [Mass/volume] in Serum or Plasma [2345-7] 11/22/2024 06:11 PM 294 mg/dL N Blood chemistry[[id number]] Glucose [Mass/volume] in Serum or Plasma [2345-7] 11/22/2024 03:53 PM 258 mg/dL N Blood chemistry[[id number]] Glucose [Mass/volume] in Serum or Plasma [2345-7] 11/21/2024 06:03 PM 246 mg/dL N Blood chemistry[[id number]] Glucose [Mass/volume] in Serum or Plasma [2345-7] 11/21/2024 04:01 PM 335 mg/dL N Blood chemistry[[id number]] Glucose [Mass/volume] in Serum or Plasma [2345-7] 11/21/2024 01:48 PM 227 mg/dL N Blood chemistry[[id number]] Glucose [Mass/volume] in Serum or Plasma [2345-7] 11/21/2024 11:39 AM 156 mg/dL N Blood chemistry[[id number]] Glucose [Mass/volume] in Serum or Plasma [2345-7] 11/20/2024 01:20 PM 364 mg/dL N Blood chemistry[[id number]] Glucose [Mass/volume] in Serum or Plasma [2345-7] 11/20/2024 10:11 AM 338 mg/dL N Blood chemistry[[id number]] Glucose [Mass/volume] in Serum or Plasma [2345-7] 11/20/2024 04:41 PM 250 mg/dL N Blood chemistry[[id number]] Glucose [Mass/volume] in Serum or Plasma [2345-7] 11/20/2024 12:21 PM 268 mg/dL N Blood chemistry[[id number]] Glucose [Mass/volume] in Serum or Plasma [2345-7] 11/19/2024 05:30 PM 208 mg/dL N Blood chemistry[[id number]] Glucose [Mass/volume] in Serum or Plasma [2345-7] 11/19/2024 03:47 PM 181 mg/dL N Blood chemistry[[id number]] Glucose [Mass/volume] in Serum or Plasma [2345-7] 11/19/2024 12:22 PM 292 mg/dL N Blood chemistry[[id number]] Glucose [Mass/volume] in Serum or Plasma [2345-7] 11/19/2024 09:40 AM 249 mg/dL N Blood chemistry[[id number]] Glucose [Mass/volume] in Serum or Plasma [2345-7] 11/18/2024 01:02 PM 374 mg/dL N Blood chemistry[[id number]] Glucose [Mass/volume] in Serum or Plasma [2345-7] 11/18/2024 10:21 AM 232 mg/dL N Allergies, adverse reactions, alerts [...] Active Afluria Qd 2022-(3yr up)(PF) (flu vac [id number] 36mos up(pf)) 60 mcg (15 mcg x 4)/0.5 mL syringe (Afluria Qd (3yr up)(PF) (flu vac [id number] 36mos up(pf))) 0.5ml, intramuscular , Once - [...] rising and call pcp for er order subcutaneo us 1.0 05/24 Active oxycodone 5 mg [...] breath or wheezing inhalation 1.0 4.0 h 11/27 Active atorvastatin 80 mg tablet (atorvastatin) 1 tab, oral, Once A Day oral 1.0 1.0 d 11/27 Active cholecalciferol (vitamin D3) 25 mcg (1,000 unit) tablet (cholecalcifero l (vitamin D3)) 1 tab, oral, Once A Day oral 1.0 1.0 d 11/27 Active cyanocobalamin (vitamin B-12) 1,000 mcg tablet (cyanocobalamin (vitamin B-12)) 1 tab, oral, Once A Day oral 1.0 1.0 d 11/27 Active Daily-Marylou (with folic acid) (multivitamin with folic acid) 400 mcg tablet (Daily-Marylou (with folic acid) (multivitamin with folic acid)) 1 tab, oral, Once A Day oral 1.0 1.0 d 11/27 Active dextromethorpha n-guaifenesin 10-100 mg/5 mL liquid (dextromethorph an-guaifenesin) 5-10 mL, oral, Every 6 Hours - PRN, for congestion oral 1.0 6.0 h 11/27 Active digoxin 125 mcg (0.125 mg) tablet (digoxin) 1 tab, oral, Once A Day oral 1.0 1.0 d 11/27 Active donepezil 5 mg tablet (donepezil) 1 tab, oral, Once A Day oral 1.0 1.0 d 11/27 Active Dulcolax (bisacodyl) (bisacodyl) 10 mg suppository (Dulcolax (bisacodyl) (bisacodyl)) 1 suppository, rectal, Once A Day - PRN, Give rectally if can't take p/o, if no results from MOM rectal 1.0 1.0 d 11/27 Active finasteride 5 mg tablet (finasteride) 1 tab, oral, Once A Day oral 1.0 1.0 d 11/27 Active fluticasone propion-salmete rol 100-50 mcg/dose blister with device (fluticasone propion-salmete rol) 1 inhalation, inhalation, Twice A Day, rinse mouth with water and spit after use inhalation 1.0 12.0 h 11/27 Active fluticasone propionate 50 mcg/actuation spray,suspensio n (fluticasone propionate) 1 spray, nasal, Once A Day, in each nostril nasal 1.0 1.0 d 11/27 Active furosemide 20 mg tablet (furosemide) 1 tab, oral, Twice A Day - PRN, for edema oral 1.0 12.0 h 11/21 Active hydrocodone-delphine taminophen 7.5-325 mg tablet (hydrocodone-ac etaminophen) 1 tab, oral, Every 4 Hours - PRN, for pain Exempt R52 oral 1.0 4.0 h 11/27 Active insulin glargine-yfgn 100 unit/mL (3 mL) [...] Sugar is greater than 400, [facility] 11/18 Active melatonin 1 mg tablet (melatonin) 1 tab, oral, At Bedtime oral 1.0 11/27 Active metformin 500 mg tablet (metformin) 1 tab, oral, Once A Day oral 1.0 1.0 d 11/27 Active metoprolol tartrate 25 mg tablet (metoprolol tartrate) 1 tab, oral, Twice A Day oral 1.0 12.0 h 11/27 Active omeprazole 20 mg capsule,delayed release(DR/EC) (omeprazole) 1 cap, oral, Once A Day oral 1.0 1.0 d 11/27 Active tamsulosin 0.4 mg capsule (tamsulosin) 1 cap, oral, At Bedtime oral 1.0 11/27 Active Tylenol (acetaminophen) 325 mg tablet (Tylenol (acetaminophen) ) 2 tabs/650mg, oral, Every 6 Hours - PRN, as needed for PRN pain/increase d tempMay give rectally if necessary oral 1.0 6.0 h 11/27 Active ferrous sulfate 325 mg (65 mg iron) tablet (ferrous sulfate) 1 tab, oral, Once A Day Every Other Day oral 1.0 1.0 d 11/27 Active silver sulfadiazine 1 % cream (silver sulfadiazine) as directed, topical, Every Shift, Right buttock: Apply to right buttock open area q shift and saji topical 1.0 8.0 h 11/27 Active furosemide 20 mg tablet (furosemide) 1 tab, oral, Once A Day, for edema oral 1.0 1.0 d 11/27 Active insulin glargine-yfgn 100 unit/mL (3 mL) insulin pen (insulin glargine-yfgn) 15 units, subcutaneous, Once A Day subcutaneo us 1.0 1.0 d 11/27 Active ondansetron 4 mg tablet,disinteg rating (ondansetron) 1 tab, oral, Before Meals, 1 tab before meals to prevent nausea oral 1.0 11/27 Active insulin lispro 100 unit/mL insulin pen (insulin lispro) Per Sliding Scale, subcutaneous, Before Meals and At Bedtime, If Blood Sugar is less than 60, call MD.If Blood Sugar is 201 to 250, give 2 Units.If Blood Sugar is 251 to 300, give 4 Units.If Blood Sugar is 301 to 350, give 6 Units.If Blood Sugar is 351 to 400, give 8 Units. subcutaneo us 1.0 11/27 Active acetaminophen 325 mg tablet (acetaminophen) 2 tabs (650mg), oral, Every 6 Hours - PRN, For pain/fever oral 1.0 6.0 h 12/21 Active albuterol sulfate 90 mcg/actuation HFA aerosol inhaler (albuterol sulfate) 2 inhalations, inhalation, Every 4 Hours - PRN, For Dyspnea inhalation 1.0 4.0 h 12/21 Active atorvastatin 80 mg tablet (atorvastatin) 1 tab, oral, Once A Day oral 1.0 1.0 d 12/21 Active ceftriaxone 1 gram recon soln (ceftriaxone) 1 gram, intravenous, Once A Day, Through 01/10/2025 intravenou s 1.0 1.0 d 01/10 Active cholecalciferol (vitamin D3) 25 mcg (1,000 unit) tablet (cholecalcifero l (vitamin D3)) 1 tab, oral, Once A Day oral 1.0 1.0 d 12/21 Active cyanocobalamin (vitamin B-12) 1,000 mcg tablet (cyanocobalamin (vitamin B-12)) 1 tab, oral, Once A Day oral 1.0 1.0 d 12/21 Active dextromethorpha n-guaifenesin 10-100 mg/5 mL liquid (dextromethorph an-guaifenesin) 5-10mL, oral, Every 6 Hours - PRN, For congestion oral 1.0 6.0 h 12/21 Active digoxin 125 mcg (0.125 mg) tablet (digoxin) 1 tab, oral, Once A Day oral 1.0 1.0 d 12/21 Active docusate sodium 100 mg tablet (docusate sodium) 1 tab, oral, Twice A Day oral 1.0 12.0 h 12/21 Active donepezil 5 mg tablet (donepezil) 1 tab, oral, Once A Day oral 1.0 1.0 d 12/19 Active ferrous sulfate 325 mg (65 mg iron) tablet (ferrous sulfate) 1 tab, oral, Once A Day Every Other Day, TI for ferrous sulfate oral 1.0 1.0 d 12/19 Active finasteride 5 mg tablet (finasteride) 1 tab, oral, Once A Day oral 1.0 1.0 d 12/21 Active fluticasone propion-salmete rol 100-50 mcg/dose blister with device (fluticasone propion-salmete rol) 1 inhalation, inhalation, Twice A Day, rinse mouth with water and spit after use inhalation 1.0 12.0 h 12/21 Active fluticasone propionate 50 mcg/actuation spray,suspensio n (fluticasone propionate) 1 spray each nostril, nasal, Once A Day nasal 1.0 1.0 d 12/21 Active furosemide 20 mg tablet (furosemide) 1 tab, oral, Once A Day oral 1.0 1.0 d 12/21 Active hydrocodone-delphine taminophen 7.5-325 mg tablet (hydrocodone-ac etaminophen) 1 tab, oral, Every 4 Hours - PRN, For pain, Exempt R52 oral 1.0 4.0 h 12/21 Active insulin glargine-yfgn 100 unit/mL (3 mL) insulin pen (insulin glargine-yfgn) 5 units, subcutaneous, Once A Day, [facility].0 1.0 d 12/21 Active insulin lispro 100 unit/mL insulin pen [...] than 400, call MD. subcutaneo us 1.0 12/06 Active melatonin 1 mg tablet (melatonin) 1 tab, oral, At Bedtime - PRN, For sleep with a 14 day auto stop per TI oral 1.0 12/16 Active metformin 500 mg tablet (metformin) 1 tab, oral, Once A Day oral 1.0 1.0 d 12/21 Active omeprazole 20 mg capsule,delayed release(DR/EC) (omeprazole) 1 cap, oral, Once A Day oral 1.0 1.0 d 12/21 Active ondansetron HCl 4 mg tablet (ondansetron HCl) 1 tab, oral, Before Meals - PRN, For n/v oral 1.0 12/21 Active silver sulfadiazine 1 % cream (silver sulfadiazine) 1 application, topical, Twice A Day, Apply to right buttocks open area topical 1.0 12.0 h 12/06 Active tamsulosin 0.4 mg capsule (tamsulosin) 1 cap, oral, At Bedtime oral 1.0 12/21 Active Thera-M (multivitamin,t n-uhxu-pb-fa-mi n) 27-0.4 mg tablet (Thera-M (multivitamin,t y-lpsy-hl-fa-mi n)) 1 tab, oral, Once A Day, TI for multivitamin with folic acid oral 1.0 1.0 d 12/05 Active vancomycin 1,000 mg recon soln (vancomycin) 1000mg, intravenous, Every 18 Hours, For 42 days, [facility] to dose. intravenou s 1.0 18.0 h 12/13 Active ceftriaxone 1 gram recon soln (ceftriaxone) 1 gm, intravenous, Once A Day, through 01/10/25 intravenou s 1.0 1.0 d 12/01 Active Dulcolax (bisacodyl) (bisacodyl) 10 mg suppository (Dulcolax (bisacodyl) (bisacodyl)) 1 suppository, rectal, Once A Day - PRN, Give rectally if can't take p/o, if no results from MOM rectal 1.0 1.0 d 12/01 Active Heparin LockFlush(Porci ne)(PF) (heparin, porcine (pf)) 100 unit/mL syringe (Heparin LockFlush(Porci ne)(PF) (heparin, porcine (pf))) 5ml, intravenous, Every Shift, Flush johnathan-cath with Heparinized NS before and after each use intravenou s 1.0 8.0 h 12/01 Active Normal Saline Flush (sodium chloride 0.9 %) - syringe (Normal Saline Flush (sodium chloride 0.9 %)) 10 ml, injection, Every Shift - PRN, Flush johnathan-cath before and after use 1.0 8.0 h 12/01 Active silver sulfadiazine 1 % cream (silver sulfadiazine) as directed, topical, Every Shift, Right buttock: Apply to right buttock open area q shift and saji topical 1.0 8.0 h 12/01 Active Tylenol (acetaminophen) 325 mg tablet (Tylenol (acetaminophen) ) 2 tabs/650mg, oral, Every 6 Hours - PRN, as needed for PRN pain/increase d tempMay give rectally if necessary oral 1.0 6.0 h 12/01 Active vancomycin 1,000 mg recon soln (vancomycin) 1 gm, intravenous, Every 12 Hours, through 01/10/25, [facility] to dose intravenou s 1.0 12.0 h 12/01 Active Thera-M (amdemvfg-wyf-c dennise fum-folic ac) 19 mg iron- 400 mcg tablet (Thera-M (vkkobrle-unw-t dennise fum-folic ac)) 1 tab, oral, Once A Day, TI for multivitamin with folic acid oral 1.0 1.0 d 12/21 Active insulin lispro 100 unit/mL insulin pen (insulin lispro) Per Sliding Scale, subcutaneous, Before Meals and At Bedtime, If Blood Sugar is less than 60, call MD.If Blood Sugar is 201 to 250, give 2 Units.If Blood Sugar is 251 to 300, give 4 Units.If Blood Sugar is 301 to 350, give 8 Units. subcutaneo us 1.0 12/21 Active nystatin 100,000 unit/gram powder (nystatin) as directed, topical, Every Shift, Apply to lori-area q shift till healed then dc topical 1.0 8.0 h 12/21 Active silver sulfadiazine 1 % cream (silver sulfadiazine) 1 application, topical, Twice A Day, Apply to sacrum open area and saji topical 1.0 12.0 h 12/06 Active vancomycin 1,000 mg recon soln (vancomycin) 1000mg, intravenous, Every 18 Hours, For 42 days, [facility] to dose. intravenou s 1.0 18.0 h 01/13 Active vancomycin 1,000 mg recon soln (vancomycin) 1000mg, intravenous, Every 18 Hours, For 42 days, [facility] to dose. intravenou s 1.0 18.0 h 12/09 Active sucralfate 1 gram tablet (sucralfate) 1, oral, Three Times A Day, 1 tablet AC TID oral 1.0 8.0 h 12/21 Active vancomycin 1,000 mg recon soln (vancomycin) 1000mg, intravenous, Every 24 Hours, For 42 days, [facility] to dose. intravenou s 1.0 24.0 h 01/13 Active silver sulfadiazine 1 % cream (silver sulfadiazine) 1 application, topical, Twice A Day, Apply to sacrum open area and saji topical 1.0 12.0 h 12/20 Active vancomycin 1,000 mg recon soln (vancomycin) 1000mg, intravenous, Every 18 Hours, For 42 days, [facility] to dose. intravenou s 1.0 18.0 h 12/20 Active ceftriaxone 1 gram recon soln (ceftriaxone) 1 gram, intravenous, Once A Day, Through 01/10/2025 intravenou s 1.0 1.0 d 12/21 Active melatonin 1 mg tablet (melatonin) 1 tab, oral, At Bedtime - PRN, For sleep with a 14 day auto stop per TI oral 1.0 12/20 Active vancomycin 1,000 mg recon soln (vancomycin) 1000mg, intravenous, Every 24 Hours, For 42 days, [facility] to dose. intravenou s 1.0 24.0 h 12/21 Active albuterol sulfate 90 mcg/actuation HFA aerosol inhaler (albuterol sulfate) 2 puffs, inhalation, Every 4 Hours - PRN, for SOB or wheezing inhalation 1.0 4.0 h 2024 Active amiodarone 200 mg tablet (amiodarone) 1 tab, oral, Once A Day oral 1.0 1.0 d 2024 Active atorvastatin 80 mg tablet (atorvastatin) 1 tab, oral, Once A Day oral 1.0 1.0 d 2024 Active buspirone 10 mg tablet (buspirone) 1 tab, oral, Every 12 Hours - PRN, for anxiety auto stop for 14 days per TI oral 1.0 12.0 h 01/11 Active ceftazidime 2 gram recon soln (ceftazidime) 2 Gm, intravenous, Every 8 Hours, for 34 days intravenou s 1.0 8.0 h 01/31 Active cholecalciferol (vitamin D3) 25 mcg (1,000 [...] Once A Day oral 1.0 1.0 d 12/29 Active dextromethorpha n-guaifenesin 10-100 mg/5 mL liquid (dextromethorph an-guaifenesin) 5mL, oral, Every 4 Hours - PRN, for cough oral 1.0 4.0 h 2024 Active digoxin 125 mcg (0.125 mg) tablet (digoxin) 1 tab, oral, Once A Day oral 1.0 1.0 d 2024 Active docusate sodium 100 mg tablet (docusate sodium) 1 tab, oral, Twice A Day oral 1.0 12.0 h 2024 Active donepezil 5 mg tablet (donepezil) 1 tab, oral, Once A Day, TI for galantmine oral 1.0 1.0 d 2024 Active Dulcolax (bisacodyl) (bisacodyl) 5 mg tablet,delayed release (DR/EC) (Dulcolax (bisacodyl) (bisacodyl)) 2 tabs/10mg, oral, Once A Day - PRN, Give if no results from MOM oral 1.0 1.0 d 2024 Active Dulcolax (bisacodyl) (bisacodyl) 10 mg suppository (Dulcolax (bisacodyl) (bisacodyl)) 1 suppository, rectal, Once A Day - PRN, Give rectally if can't take p/o, if no results from MOM rectal 1.0 1.0 d 2024 Active finasteride 5 mg tablet (finasteride) 1 tab, oral, Once A Day oral 1.0 1.0 d 2024 Active Fleet Enema (sodium phosphates) 19-7 gram/118 mL enema (Fleet Enema (sodium phosphates)) 1 application, rectal, Once A Day - PRN, Give fleets if no results from MOM and Dulcolax rectal 1.0 1.0 d 2024 Active fluconazole 200 mg tablet (fluconazole) 1 tab, oral, Once A Day, for 14 days oral 1.0 1.0 d 01/11 Active fluticasone propion-salmete rol 100-50 mcg/dose blister with device (fluticasone propion-salmete rol) 1 inhalation, inhalation, Twice A Day, rinse mouth with water and spit after use inhalation 1.0 12.0 h 2024 Active fluticasone propionate 50 mcg/actuation spray,suspensio n (fluticasone propionate) 1 spray, nasal, Once A Day, both nostrils. TI for mometasone nasal 1.0 1.0 d 2024 Active furosemide 20 mg tablet (furosemide) 1 tab, oral, Once A Day oral 1.0 1.0 d 2024 Active hydrocodone-delphine taminophen 7.5-325 mg tablet (hydrocodone-ac etaminophen) 1 tab, oral, Every 4 Hours - PRN, for pain exempt R52 oral 1.0 4.0 h 2024 Active insulin glargine-yfgn 100 unit/mL (3 mL) insulin pen (insulin glargine-yfgn) 5 units, subcutaneous, Once A Day subcutaneo us 1.0 1.0 d 2024 Active insulin lispro 100 unit/mL insulin pen [...] than 400, call MD. subcutaneo us 1.0 2024 Active metformin 500 mg tablet (metformin) 1 tab, oral, Once A Day oral 1.0 1.0 d 2024 Active Milk of Magnesia (magnesium hydroxide) 400 mg/5 mL suspension (Milk of Magnesia (magnesium hydroxide)) 30 ml, oral, Every 72 Hours - PRN, if no BM in 3 daysDO NOT GIVE TO RENAL PATIENTS--GO TO [facility] ORDERS oral 1.0 72.0 h 2024 Active Normal Saline Flush (sodium chloride 0.9 %) - syringe (Normal Saline Flush (sodium chloride 0.9 %)) 10 ml, injection, Twice A Day, Flush johnathan-cath before and after use 1.0 12.0 h 02/01 Active nystatin 100,000 unit/gram powder (nystatin) 1 tab, topical, Three Times A Day, apply to affected area topical 1.0 8.0 h 12/30 Active omeprazole 20 mg capsule,delayed release(DR/EC) (omeprazole) 1 cap, oral, Once A Day oral 1.0 1.0 d 2024 Active ondansetron HCl 4 mg tablet (ondansetron HCl) 1 tab, oral, Every 6 Hours - PRN, for nausea/vomiti ng oral 1.0 6.0 h 2024 Active silver sulfadiazine 1 % cream (silver sulfadiazine) 1 ana, topical, Twice A Day, apply to affected area topical 1.0 12.0 h 2024 Active sucralfate 1 gram tablet (sucralfate) 1 tab, oral, Before Meals oral 1.0 2024 Active tamsulosin 0.4 mg capsule (tamsulosin) 1 cap, oral, Once A Day oral 1.0 1.0 d 2024 Active Tylenol (acetaminophen) 325 mg tablet (Tylenol (acetaminophen) ) 2 tabs/650mg, oral, Every 6 Hours - PRN, as needed for PRN pain/increase d tempMay give rectally if necessary oral 1.0 6.0 h 2024 Active vancomycin 1,000 mg recon soln (vancomycin) 750 mg, intravenous, Once A Day, for 34 days, [facility] to Dose intravenou s 1.0 1.0 d 01/31 Active Tubersol (tuberculin ppd) 5 tub. unit /0.1 mL solution (Tubersol (tuberculin ppd)) 0.1ml, intradermal, Once - One Time, Administer the morning after admission intraderma l 1.0 12/29 Active Thera-M (ddskqnej-dtz-g dennise fum-folic ac) 19 mg iron- 400 mcg tablet (Thera-M (hnsqalpq-hpc-j dennise fum-folic ac)) 1 tab, oral, Once A Day oral 1.0 1.0 d 2024 Active nystatin 100,000 unit/gram powder (nystatin) 1 tab, topical, Every Shift, apply to affected area topical 1.0 8.0 h 2024 Active Tubersol (tuberculin ppd) 5 tub. unit /0.1 mL solution (Tubersol (tuberculin ppd)) 0.1ml, intradermal, Once - One Time - PRN, Administer on the day shift intraderma l 1.0 01/06 Active vancomycin 1,000 mg recon soln (vancomycin) 1000mg, intravenous, Once A Day, [facility] Dose intravenou s 1.0 1.0 d 01/31 Active vancomycin 1,000 mg recon soln (vancomycin) 750 mg, intravenous, Once A Day, for 34 days, [facility] Dose intravenou s 1.0 1.0 d 01/13 Active Probiotic (lactobacillus acidophilus) 10 billion cell capsule (Probiotic (lactobacillus acidophilus)) 1, oral, Once A Day oral 1.0 1.0 d 01/17 Active [facility] (lactobac. rhamnosus gg-inulin) 10 billion cell -200 mg capsule, sprinkle ([facility] (lactobac. rhamnosus gg-inulin)) 1 cap, oral, Once A Day oral 1.0 1.0 d 2024 Active ceftazidime 2 gram recon soln (ceftazidime) 2 Gm, intravenous, Every 8 Hours intravenou s 1.0 8.0 h 02/01 Active vancomycin 1,000 mg recon soln (vancomycin) 1000mg, intravenous, Once A Day, [facility] Dose intravenou s 1.0 1.0 d 02/01 Active ceftazidime 2 gram recon soln (ceftazidime) 2 Gm, intravenous, Every 8 Hours, for 34 days intravenou s 1.0 8.0 h 01/25 Active vancomycin 1,000 mg recon soln (vancomycin) 1000mg, intravenous, Once A Day, [facility] Dose intravenou s 1.0 1.0 d 01/25 Active fosfomycin tromethamine 3 gram packet (fosfomycin tromethamine) 3 gram, oral, Once a Day on Thu oral 1.0 1.0 d 2024 Active potassium chloride 20 mEq tablet extended release (potassium chloride) 2 tab= 40 meq b, oral, Once A Day oral 1.0 1.0 d 02/02 Active potassium chloride 20 mEq tablet extended release (potassium chloride) 1 tab, oral, At Bedtime oral 1.0 1.0 d 2024 Active Vital Signs Date Vital Result Comment 06/21/2024 07:40 AM Temperature (8310-5) 97.6 [degF] Oxygen Saturation (08489-3) 99 % Respiratory Rate (9279-1) 18 /min Heart Rate (8867-4) 105 /min Blood Pressure Systolic (8480-6) 107 mm[Hg] Blood Pressure Diastolic (8462-4) 69 mm[Hg] 06/20/2024 07:31 PM Temperature (8310-5) 98.2 [degF] Oxygen Saturation (57116-2) 95 % Respiratory Rate (9279-1) 20 /min Heart Rate (8867-4) 105 /min Blood Pressure Systolic (8480-6) 104 mm[Hg] Blood Pressure Diastolic (8462-4) 69 mm[Hg] 06/20/2024 07:54 AM Temperature (8310-5) 97.4 [degF] Oxygen Saturation (49279-2) 97 % Respiratory Rate (9279-1) 16 /min Heart Rate (8867-4) 86 /min Blood Pressure Systolic (8480-6) 120 mm[Hg] Blood Pressure Diastolic (8462-4) 74 mm[Hg] 06/19/2024 10:46 PM Temperature (8310-5) 97 [degF] Oxygen Saturation (59186-7) 95 % Respiratory Rate (9279-1) 16 /min Heart Rate (8867-4) 70 /min Blood Pressure Systolic (8480-6) 112 mm[Hg] Blood Pressure Diastolic (8462-4) 78 mm[Hg] 06/19/2024 07:18 AM Temperature (8310-5) 97.3 [degF] Oxygen Saturation (47168-3) 94 % Respiratory Rate (9279-1) 19 /min Heart Rate (8867-4) 68 /min Blood Pressure Systolic (8480-6) 109 mm[Hg] Blood Pressure Diastolic (8462-4) 63 mm[Hg] 06/18/2024 11:55 PM Temperature (8310-5) 98 [degF] Oxygen Saturation (12064-7) 95 % Respiratory Rate (9279-1) 18 /min Heart Rate (8867-4) 70 /min Blood Pressure Systolic (8480-6) 130 mm[Hg] Blood Pressure Diastolic (8462-4) 78 mm[Hg] 06/18/2024 07:37 AM Temperature (8310-5) 98 [degF] Oxygen Saturation (98854-0) 100 % Respiratory Rate (9279-1) 18 /min Heart Rate (8867-4) 97 /min Blood Pressure Systolic (8480-6) 102 mm[Hg] Blood Pressure Diastolic (8462-4) 61 mm[Hg] 06/17/2024 10:05 PM Temperature (8310-5) 98 [degF] Oxygen Saturation (28813-4) 96 % Respiratory Rate (9279-1) 16 /min Heart Rate (8867-4) 76 /min Blood Pressure Systolic (8480-6) 132 mm[Hg] Blood Pressure Diastolic (8462-4) 88 mm[Hg] 06/17/2024 06:57 AM Temperature (8310-5) 97.4 [degF] Oxygen Saturation (66122-2) 93 % Respiratory Rate (9279-1) 16 /min Heart Rate (8867-4) 82 /min Blood Pressure Systolic (8480-6) 108 mm[Hg] Blood Pressure Diastolic (8462-4) 71 mm[Hg] 06/16/2024 08:22 PM Temperature (8310-5) 98.4 [degF] Oxygen Saturation (72597-7) 94 % Respiratory Rate (9279-1) 20 /min Heart Rate (8867-4) 92 /min Blood Pressure Systolic (8480-6) 110 mm[Hg] Blood Pressure Diastolic (8462-4) 79 mm[Hg] 06/14/2024 11:04 PM Body Height (8302-2) 68 [in_us] Body Weight (34645-2) 202 [lb_av] Body Mass Index (16925-2) 30.71 kg/m2 05/25/2024 10:58 AM Body Weight (61991-6) 202.4 [lb_av ] Body Mass Index (84596-9) 30.77 kg/m2 04/20/2024 11:06 AM Body Weight (47533-2) 201 [lb_av] Body Mass Index (09047-8) 30.56 kg/m2 04/13/2024 09:23 AM Body Weight (29559-2) 210.4 [lb_av ] Body Mass Index (52028-7) 31.99 kg/m2 05/04/2024 10:54 AM Body Weight (81892-1) 204 [lb_av] Body Mass Index (64206-9) 31.01 kg/m2 06/16/2024 06:33 AM Body Weight (82236-9) 198 [lb_av] Body Mass Index (13417-6) 30.1 kg/m2 05/05/2024 10:28 AM Body Weight (65630-9) 204 [lb_av] Body Mass Index (91539-7) 31.01 kg/m2 04/04/2024 02:53 PM Body Weight (42634-3) 215 [lb_av] Body Mass Index (22304-3) 32.69 kg/m2 05/18/2024 07:21 AM Body Weight (58106-2) 202.8 [lb_av ] Body Mass Index (63029-8) 30.83 kg/m2 04/12/2024 12:14 PM Body Weight (89245-6) 210 [lb_av] Body Mass Index (33010-1) 31.93 kg/m2 06/05/2024 12:53 PM Body Weight (24073-0) 202.2 [lb_av ] Body Mass Index (03049-5) 30.74 kg/m2 06/15/2024 10:07 AM Body Weight (42820-9) 198.2 [lb_av ] Body Mass Index (99663-9) 30.13 kg/m2 05/08/2024 02:35 PM Body Weight (24117-1) 208.2 [lb_av ] Body Mass Index (90023-9) 31.65 kg/m2 06/17/2024 11:18 AM Body Weight (15799-0) 198 [lb_av] Body Mass Index (08237-1) 30.1 kg/m2 05/10/2024 09:17 AM Body Weight (86539-3) 204.6 [lb_av ] Body Mass Index (81279-8) 31.11 kg/m2 05/07/2024 09:36 AM Body Weight (76920-7) 203.2 [lb_av ] Body Mass Index (97018-8) 30.89 kg/m2 04/27/2024 10:11 AM Body Weight (28709-2) 204.4 [lb_av ] Body Mass Index (49865-8) 31.08 kg/m2 04/08/2024 08:13 PM Body Weight (99119-2) 216 [lb_av] Body Mass Index (09196-0) 32.84 kg/m2 04/01/2024 11:23 AM Body Weight (75200-8) 216 [lb_av] Body Mass Index (98665-2) 32.84 kg/m2 03/30/2024 10:08 AM Body Weight (96575-4) 218.4 [lb_av ] Body Mass Index (62258-7) 33.2 kg/m2 04/02/2024 04:15 PM Body Weight (08265-3) 216 [lb_av] Body Mass Index (34254-6) 32.84 kg/m2 11/18/2024 03:03 PM Temperature (8310-5) 97.7 [degF] Oxygen Saturation (60982-5) 99 % Respiratory Rate (9279-1) 20 /min Heart Rate (8867-4) 91 /min Blood Pressure Systolic (8480-6) 159 mm[Hg] Blood Pressure Diastolic (8462-4) 97 mm[Hg] Body Weight (64056-3) 186.4 [lb_av] Body Mass Index (14289-7) 28.34 kg/m2 11/19/2024 04:19 AM Temperature (8310-5) 98 [degF] Oxygen Saturation (63166-4) 95 % Respiratory Rate (9279-1) 16 /min Heart Rate (8867-4) 70 /min Blood Pressure Systolic (8480-6) 112 mm[Hg] Blood Pressure Diastolic (8462-4) 80 mm[Hg] 11/19/2024 09:48 PM Temperature (8310-5) 98 [degF] Oxygen Saturation (62723-7) 95 % Respiratory Rate (9279-1) 16 /min Heart Rate (8867-4) 70 /min Blood Pressure Systolic (8480-6) 136 mm[Hg] Blood Pressure Diastolic (8462-4) 78 mm[Hg] 11/19/2024 03:05 PM Body Weight (42687-3) 185.8 [lb_av ] Body Mass Index (12122-5) 28.25 kg/m2 11/19/2024 10:46 AM Temperature (8310-5) 98 [degF] Oxygen Saturation (48360-2) 98 % Respiratory Rate (9279-1) 18 /min Heart Rate (8867-4) 79 /min Blood Pressure Systolic (8480-6) 104 mm[Hg] Blood Pressure Diastolic (8462-4) 46 mm[Hg] 11/20/2024 01:08 PM Body Weight (92736-6) 184.2 [lb_av ] Body Mass Index (55126-7) 28 kg/m2 11/20/2024 07:57 AM Temperature (8310-5) 97.3 [degF] Oxygen Saturation (44606-1) 97 % Respiratory Rate (9279-1) 18 /min Heart Rate (8867-4) 96 /min Blood Pressure Systolic (8480-6) 106 mm[Hg] Blood Pressure Diastolic (8462-4) 73 mm[Hg] 11/21/2024 02:24 AM Temperature (8310-5) 97 [degF] Oxygen Saturation (94501-3) 96 % Respiratory Rate (9279-1) 16 /min Heart Rate (8867-4) 80 /min Blood Pressure Systolic (8480-6) 120 mm[Hg] Blood Pressure Diastolic (8462-4) 88 mm[Hg] 11/21/2024 09:25 PM Temperature (8310-5) 97.7 [degF] Oxygen Saturation (71291-8) 93 % Respiratory Rate (9279-1) 20 /min Heart Rate (8867-4) 79 /min Blood Pressure Systolic (8480-6) 104 mm[Hg] Blood Pressure Diastolic (8462-4) 66 mm[Hg] 11/21/2024 05:39 PM Temperature (8310-5) 98.2 [degF] Oxygen Saturation (13962-5) 93 % Respiratory Rate (9279-1) 20 /min Heart Rate (8867-4) 72 /min Blood Pressure Systolic (8480-6) 140 mm[Hg] Blood Pressure Diastolic (8462-4) 68 mm[Hg] 11/22/2024 09:55 AM Temperature (8310-5) 98.1 [degF] Oxygen Saturation (71830-2) 96 % Respiratory Rate (9279-1) 18 /min Heart Rate (8867-4) 67 /min Blood Pressure Systolic (8480-6) 98 mm[Hg] Blood Pressure Diastolic (8462-4) 62 mm[Hg] 11/23/2024 05:54 AM Temperature (8310-5) 96.9 [degF] Oxygen Saturation (05102-6) 96 % Respiratory Rate (9279-1) 18 /min Heart Rate (8867-4) 94 /min Blood Pressure Systolic (8480-6) 120 mm[Hg] Blood Pressure Diastolic (8462-4) 71 mm[Hg] 11/22/2024 06:42 PM Temperature (8310-5) 97.1 [degF] Oxygen Saturation (77123-9) 97 % Respiratory Rate (9279-1) 22 /min Heart Rate (8867-4) 95 /min Blood Pressure Systolic (8480-6) 100 mm[Hg] Blood Pressure Diastolic (8462-4) 52 mm[Hg] 11/24/2024 07:06 AM Temperature (8310-5) 98 [degF] Oxygen Saturation (68627-6) 98 % Respiratory Rate (9279-1) 20 /min Heart Rate (8867-4) 62 /min Blood Pressure Systolic (8480-6) 145 mm[Hg] Blood Pressure Diastolic (8462-4) 65 mm[Hg] 11/23/2024 07:50 PM Temperature (8310-5) 97.1 [degF] Oxygen Saturation (43125-7) 99 % Respiratory Rate (9279-1) 19 /min Heart Rate (8867-4) 60 /min Blood Pressure Systolic (8480-6) 160 mm[Hg] Blood Pressure Diastolic (8462-4) 58 mm[Hg] 11/25/2024 07:04 AM Temperature (8310-5) 97.6 [degF] Oxygen Saturation (17261-9) 96 % Respiratory Rate (9279-1) 18 /min Heart Rate (8867-4) 72 /min Blood Pressure Systolic (8480-6) 142 mm[Hg] Blood Pressure Diastolic (8462-4) 76 mm[Hg] 11/24/2024 08:50 PM Temperature (8310-5) 97 [degF] Oxygen Saturation (91219-4) 95 % Respiratory Rate (9279-1) 16 /min Heart Rate (8867-4) 80 /min Blood Pressure Systolic (8480-6) 130 mm[Hg] Blood Pressure Diastolic (8462-4) 80 mm[Hg] 11/25/2024 10:07 PM Temperature (8310-5) 99.9 [degF] Oxygen Saturation (56993-3) 98 % Respiratory Rate (9279-1) 18 /min Heart Rate (8867-4) 88 /min Blood Pressure Systolic (8480-6) 96 mm[Hg] Blood Pressure Diastolic (8462-4) 70 mm[Hg] 12/03/2024 09:56 AM Temperature (8310-5) 98.1 [degF] Oxygen Saturation (99020-0) 97 % Respiratory Rate (9279-1) 19 /min Heart Rate (8867-4) 83 /min Blood Pressure Systolic (8480-6) 112 mm[Hg] Blood Pressure Diastolic (8462-4) 68 mm[Hg] 12/02/2024 11:39 PM Temperature (8310-5) 97 [degF] Oxygen Saturation (34059-7) 95 % Respiratory Rate (9279-1) 16 /min Heart Rate (8867-4) 70 /min Blood Pressure Systolic (8480-6) 112 mm[Hg] Blood Pressure Diastolic (8462-4) 80 mm[Hg] 12/04/2024 09:15 AM Temperature (8310-5) 98.2 [degF] Oxygen Saturation (56828-9) 98 % Respiratory Rate (9279-1) 20 /min Heart Rate (8867-4) 84 /min Blood Pressure Systolic (8480-6) 138 mm[Hg] Blood Pressure Diastolic (8462-4) 73 mm[Hg] 12/03/2024 09:53 PM Temperature (8310-5) 97 [degF] Oxygen Saturation (40382-6) 95 % Respiratory Rate (9279-1) 16 /min Heart Rate (8867-4) 64 /min Blood Pressure Systolic (8480-6) 138 mm[Hg] Blood Pressure Diastolic (8462-4) 70 mm[Hg] 12/04/2024 09:21 PM Oxygen Saturation (57623-7) 98 % 12/04/2024 09:20 PM Blood Pressure Systolic (8480-6) 1 24 mm[Hg] Blood Pressure Diastolic (8462-4) 80 mm[Hg] 12/04/2024 09:18 PM Temperature (8310-5) 97 [degF] Respiratory Rate (9279-1) 18 /min Heart Rate (8867-4) 80 /min 12/05/2024 06:51 PM Temperature (8310-5) 97.1 [degF] Oxygen Saturation (12011-5) 99 % Respiratory Rate (9279-1) 14 /min Heart Rate (8867-4) 84 /min Blood Pressure Systolic (8480-6) 88 mm[Hg] Blood Pressure Diastolic (8462-4) 53 mm[Hg] 12/05/2024 09:58 AM Temperature (8310-5) 98 [degF] Oxygen Saturation (16912-6) 97 % Respiratory Rate (9279-1) 17 /min Heart Rate (8867-4) 98 /min Blood Pressure Systolic (8480-6) 117 mm[Hg] Blood Pressure Diastolic (8462-4) 78 mm[Hg] 12/06/2024 11:21 AM Temperature (8310-5) 98.1 [degF] Oxygen Saturation (97091-2) 97 % Respiratory Rate (9279-1) 16 /min Heart Rate (8867-4) 70 /min Blood Pressure Systolic (8480-6) 128 mm[Hg] Blood Pressure Diastolic (8462-4) 70 mm[Hg] 12/06/2024 07:51 PM Temperature (8310-5) 97.2 [degF] Oxygen Saturation (49598-3) 97 % Respiratory Rate (9279-1) 16 /min Heart Rate (8867-4) 78 /min Blood Pressure Systolic (8480-6) 88 mm[Hg] Blood Pressure Diastolic (8462-4) 52 mm[Hg] 12/08/2024 10:40 AM Temperature (8310-5) 97.8 [degF] Oxygen Saturation (89798-2) 97 % Respiratory Rate (9279-1) 18 /min Heart Rate (8867-4) 88 /min Blood Pressure Systolic (8480-6) 124 mm[Hg] Blood Pressure Diastolic (8462-4) 66 mm[Hg] 12/08/2024 12:40 AM Temperature (8310-5) 96.8 [degF] Oxygen Saturation (96742-7) 98 % Respiratory Rate (9279-1) 16 /min Heart Rate (8867-4) 85 /min Blood Pressure Systolic (8480-6) 103 mm[Hg] Blood Pressure Diastolic (8462-4) 78 mm[Hg] 12/07/2024 05:24 PM Temperature (8310-5) 97.7 [degF] Oxygen Saturation (47677-5) 92 % Respiratory Rate (9279-1) 20 /min Heart Rate (8867-4) 72 /min Blood Pressure Systolic (8480-6) 114 mm[Hg] Blood Pressure Diastolic (8462-4) 63 mm[Hg] 12/09/2024 07:31 AM Temperature (8310-5) 97.2 [degF] Oxygen Saturation (06076-9) 96 % Respiratory Rate (9279-1) 18 /min Heart Rate (8867-4) 62 /min Blood Pressure Systolic (8480-6) 136 mm[Hg] Blood Pressure Diastolic (8462-4) 72 mm[Hg] 12/09/2024 12:00 AM Temperature (8310-5) 98 [degF] Oxygen Saturation (92265-9) 95 % Respiratory Rate (9279-1) 16 /min Heart Rate (8867-4) 80 /min Blood Pressure Systolic (8480-6) 132 mm[Hg] Blood Pressure Diastolic (8462-4) 87 mm[Hg] 12/09/2024 10:44 PM Temperature (8310-5) 98 [degF] Oxygen Saturation (62518-8) 96 % Respiratory Rate (9279-1) 16 /min Heart Rate (8867-4) 80 /min Blood Pressure Systolic (8480-6) 134 mm[Hg] Blood Pressure Diastolic (8462-4) 80 mm[Hg] 12/10/2024 09:46 PM Temperature (8310-5) 97 [degF] Oxygen Saturation (34732-6) 95 % Respiratory Rate (9279-1) 16 /min Heart Rate (8867-4) 80 /min Blood Pressure Systolic (8480-6) 122 mm[Hg] Blood Pressure Diastolic (8462-4) 70 mm[Hg] 12/10/2024 07:05 AM Temperature (8310-5) 97.6 [degF] Oxygen Saturation (28790-1) 95 % Respiratory Rate (9279-1) 18 /min Heart Rate (8867-4) 62 /min Blood Pressure Systolic (8480-6) 118 mm[Hg] Blood Pressure Diastolic (8462-4) 72 mm[Hg] 12/11/2024 07:29 AM Temperature (8310-5) 97.2 [degF] Oxygen Saturation (27549-8) 96 % Respiratory Rate (9279-1) 18 /min Heart Rate (8867-4) 74 /min Blood Pressure Systolic (8480-6) 118 mm[Hg] Blood Pressure Diastolic (8462-4) 62 mm[Hg] 12/11/2024 10:03 PM Temperature (8310-5) 98 [degF] Oxygen Saturation (08788-2) 95 % Respiratory Rate (9279-1) 16 /min Heart Rate (8867-4) 80 /min Blood Pressure Systolic (8480-6) 132 mm[Hg] Blood Pressure Diastolic (8462-4) 80 mm[Hg] 12/12/2024 08:23 PM Temperature (8310-5) 97.1 [degF] Oxygen Saturation (50463-9) 97 % Respiratory Rate (9279-1) 18 /min Heart Rate (8867-4) 74 /min Blood Pressure Systolic (8480-6) 120 mm[Hg] Blood Pressure Diastolic (8462-4) 80 mm[Hg] 12/12/2024 09:41 AM Temperature (8310-5) 97 [degF] Oxygen Saturation (19340-3) 99 % Respiratory Rate (9279-1) 19 /min Heart Rate (8867-4) 84 /min Blood Pressure Systolic (8480-6) 102 mm[Hg] Blood Pressure Diastolic (8462-4) 73 mm[Hg] 12/13/2024 07:26 AM Temperature (8310-5) 97.1 [degF] Oxygen Saturation (31710-0) 93 % Respiratory Rate (9279-1) 17 /min Heart Rate (8867-4) 80 /min Blood Pressure Systolic (8480-6) 118 mm[Hg] Blood Pressure Diastolic (8462-4) 77 mm[Hg] 12/13/2024 06:27 PM Temperature (8310-5) 97.7 [degF] Oxygen Saturation (91909-3) 97 % Respiratory Rate (9279-1) 17 /min Heart Rate (8867-4) 80 /min Blood Pressure Systolic (8480-6) 115 mm[Hg] Blood Pressure Diastolic (8462-4) 83 mm[Hg] 12/14/2024 08:07 AM Temperature (8310-5) 97.9 [degF] Oxygen Saturation (88424-7) 95 % Respiratory Rate (9279-1) 16 /min Heart Rate (8867-4) 90 /min Blood Pressure Systolic (8480-6) 127 mm[Hg] Blood Pressure Diastolic (8462-4) 62 mm[Hg] 12/14/2024 10:11 PM Temperature (8310-5) 97.5 [degF] Oxygen Saturation (00614-7) 98 % Respiratory Rate (9279-1) 16 /min Heart Rate (8867-4) 85 /min Blood Pressure Systolic (8480-6) 131 mm[Hg] Blood Pressure Diastolic (8462-4) 66 mm[Hg] 12/15/2024 07:10 AM Temperature (8310-5) 98.1 [degF] Oxygen Saturation (84866-3) 97 % Respiratory Rate (9279-1) 18 /min Heart Rate (8867-4) 73 /min Blood Pressure Systolic (8480-6) 145 mm[Hg] Blood Pressure Diastolic (8462-4) 99 mm[Hg] 12/15/2024 09:00 PM Temperature (8310-5) 97 [degF] Oxygen Saturation (19292-8) 99 % Respiratory Rate (9279-1) 20 /min Heart Rate (8867-4) 91 /min Blood Pressure Systolic (8480-6) 118 mm[Hg] Blood Pressure Diastolic (8462-4) 80 mm[Hg] 12/16/2024 12:12 PM Temperature (8310-5) 97.3 [degF] Oxygen Saturation (87510-5) 99 % Respiratory Rate (9279-1) 21 /min Heart Rate (8867-4) 86 /min Blood Pressure Systolic (8480-6) 120 mm[Hg] Blood Pressure Diastolic (8462-4) 78 mm[Hg] 12/17/2024 08:59 AM Temperature (8310-5) 97.6 [degF] Oxygen Saturation (97320-2) 99 % Respiratory Rate (9279-1) 18 /min Heart Rate (8867-4) 66 /min Blood Pressure Systolic (8480-6) 148 mm[Hg] Blood Pressure Diastolic (8462-4) 84 mm[Hg] 12/17/2024 01:51 AM Temperature (8310-5) 97 [degF] Oxygen Saturation (17433-7) 95 % Respiratory Rate (9279-1) 16 /min Heart Rate (8867-4) 70 /min Blood Pressure Systolic (8480-6) 132 mm[Hg] Blood Pressure Diastolic (8462-4) 78 mm[Hg] 12/17/2024 07:59 PM Temperature (8310-5) 98 [degF] Oxygen Saturation (34501-6) 95 % Respiratory Rate (9279-1) 16 /min Heart Rate (8867-4) 70 /min Blood Pressure Systolic (8480-6) 122 mm[Hg] Blood Pressure Diastolic (8462-4) 80 mm[Hg] 12/18/2024 08:44 AM Temperature (8310-5) 97.5 [degF] Oxygen Saturation (56189-0) 99 % Respiratory Rate (9279-1) 14 /min Heart Rate (8867-4) 80 /min Blood Pressure Systolic (8480-6) 111 mm[Hg] Blood Pressure Diastolic (8462-4) 57 mm[Hg] 12/19/2024 05:02 AM Temperature (8310-5) 98 [degF] Oxygen Saturation (62865-3) 98 % Respiratory Rate (9279-1) 16 /min Heart Rate (8867-4) 80 /min Blood Pressure Systolic (8480-6) 120 mm[Hg] Blood Pressure Diastolic (8462-4) 78 mm[Hg] 12/19/2024 01:04 PM Temperature (8310-5) 98.2 [degF] Oxygen Saturation (85329-4) 97 % Respiratory Rate (9279-1) 20 /min Heart Rate (8867-4) 76 /min Blood Pressure Systolic (8480-6) 126 mm[Hg] Blood Pressure Diastolic (8462-4) 76 mm[Hg] 12/19/2024 08:24 PM Temperature (8310-5) 97.5 [degF] Oxygen Saturation (55431-2) 98 % Respiratory Rate (9279-1) 18 /min Heart Rate (8867-4) 82 /min Blood Pressure Systolic (8480-6) 92 mm[Hg] Blood Pressure Diastolic (8462-4) 56 mm[Hg] 12/20/2024 08:20 AM Temperature (8310-5) 97.1 [degF] Oxygen Saturation (29632-7) 97 % Respiratory Rate (9279-1) 16 /min Heart Rate (8867-4) 71 /min Blood Pressure Systolic (8480-6) 113 mm[Hg] Blood Pressure Diastolic (8462-4) 67 mm[Hg] 12/29/2024 12:26 AM Temperature (8310-5) 98.2 [degF] Oxygen Saturation (76854-3) 97 % Respiratory Rate (9279-1) 17 /min Heart Rate (8867-4) 101 /min Blood Pressure Systolic (8480-6) 127 mm[Hg] Blood Pressure Diastolic (8462-4) 84 mm[Hg] Body Weight (86002-0) 185 [lb_av] Body Mass Index (72589-5) 28.13 kg/m2 12/29/2024 06:31 AM Temperature (8310-5) 98.4 [degF] Oxygen Saturation (79240-2) 98 % Respiratory Rate (9279-1) 18 /min Heart Rate (8867-4) 96 /min Blood Pressure Systolic (8480-6) 132 mm[Hg] Blood Pressure Diastolic (8462-4) 58 mm[Hg] 12/29/2024 08:19 PM Temperature (8310-5) 98.3 [degF] Oxygen Saturation (05237-8) 95 % Respiratory Rate (9279-1) 15 /min Heart Rate (8867-4) 104 /min Blood Pressure Systolic (8480-6) 121 mm[Hg] Blood Pressure Diastolic (8462-4) 78 mm[Hg] 12/30/2024 10:28 AM Temperature (8310-5) 97.2 [degF] Oxygen Saturation (61191-4) 98 % Respiratory Rate (9279-1) 20 /min Heart Rate (8867-4) 85 /min Blood Pressure Systolic (8480-6) 113 mm[Hg] Blood Pressure Diastolic (8462-4) 62 mm[Hg] 12/30/2024 10:52 PM Heart Rate (8867-4) 78 /min 12/30/2024 10:51 PM Temperature (8310-5) 97 [degF] Oxygen Saturation (03080-6) 95 % Respiratory Rate (9279-1) 16 /min Blood Pressure Systolic (8480-6) 112 mm[Hg] Blood Pressure Diastolic (8462-4) 80 mm[Hg] 12/31/2024 03:52 PM Temperature (8310-5) 98 [degF] Oxygen Saturation (89646-1) 96 % Respiratory Rate (9279-1) 20 /min Heart Rate (8867-4) 109 /min Blood Pressure Systolic (8480-6) 90 mm[Hg] Blood Pressure Diastolic (8462-4) 71 mm[Hg] 12/31/2024 01:40 PM Body Weight (53600-2) 186 [lb_av] Body Mass Index (46508-3) 28.28 kg/m2 12/31/2024 08:46 PM Temperature (8310-5) 98 [degF] Oxygen Saturation (69695-9) 95 % Respiratory Rate (9279-1) 18 /min Heart Rate (8867-4) 70 /min Blood Pressure Systolic (8480-6) 114 mm[Hg] Blood Pressure Diastolic (8462-4) 80 mm[Hg] 01/01/2025 10:36 AM Temperature (8310-5) 97.8 [degF] Oxygen Saturation (43426-5) 97 % Respiratory Rate (9279-1) 19 /min Heart Rate (8867-4) 95 /min Blood Pressure Systolic (8480-6) 111 mm[Hg] Blood Pressure Diastolic (8462-4) 70 mm[Hg] 01/01/2025 07:41 PM Temperature (8310-5) 98 [degF] Oxygen Saturation (90218-1) 95 % Respiratory Rate (9279-1) 16 /min Heart Rate (8867-4) 88 /min Blood Pressure Systolic (8480-6) 122 mm[Hg] Blood Pressure Diastolic (8462-4) 80 mm[Hg] 01/02/2025 12:59 PM Oxygen Saturation (49909-1) 97 % 01/02/2025 12:57 PM Temperature (8310-5) 97.3 [degF] Respiratory Rate (9279-1) 16 /min Heart Rate (8867-4) 96 /min Blood Pressure Systolic (8480-6) 90 mm[Hg] Blood Pressure Diastolic (8462-4) 60 mm[Hg] 01/02/2025 07:07 PM Temperature (8310-5) 98.6 [degF] Oxygen Saturation (30029-8) 98 % Respiratory Rate (9279-1) 16 /min Heart Rate (8867-4) 111 /min Blood Pressure Systolic (8480-6) 114 mm[Hg] Blood Pressure Diastolic (8462-4) 64 mm[Hg] 01/03/2025 06:28 AM Temperature (8310-5) 97.7 [degF] Oxygen Saturation (52529-7) 96 % Respiratory Rate (9279-1) 19 /min Heart Rate (8867-4) 111 /min Blood Pressure Systolic (8480-6) 116 mm[Hg] Blood Pressure Diastolic (8462-4) 88 mm[Hg] 01/03/2025 11:35 AM Body Weight (11680-1) 182.4 [lb_av ] Body Mass Index (01100-3) 27.73 kg/m2 01/04/2025 12:10 AM Temperature (8310-5) 97.6 [degF] Oxygen Saturation (59507-2) 97 % Respiratory Rate (9279-1) 15 /min Heart Rate (8867-4) 114 /min Blood Pressure Systolic (8480-6) 121 mm[Hg] Blood Pressure Diastolic (8462-4) 82 mm[Hg] 01/04/2025 09:26 AM Temperature (8310-5) 97.3 [degF] Oxygen Saturation (05171-3) 100 % Respiratory Rate (9279-1) 18 /min Heart Rate (8867-4) 84 /min Blood Pressure Systolic (8480-6) 115 mm[Hg] Blood Pressure Diastolic (8462-4) 71 mm[Hg] 01/04/2025 11:29 PM Temperature (8310-5) 98.1 [degF] Oxygen Saturation (49795-3) 96 % Respiratory Rate (9279-1) 14 /min Heart Rate (8867-4) 87 /min Blood Pressure Systolic (8480-6) 118 mm[Hg] Blood Pressure Diastolic (8462-4) 70 mm[Hg] 01/05/2025 06:32 AM Temperature (8310-5) 98.6 [degF] Oxygen Saturation (81166-0) 95 % Respiratory Rate (9279-1) 19 /min Heart Rate (8867-4) 72 /min Blood Pressure Systolic (8480-6) 122 mm[Hg] Blood Pressure Diastolic (8462-4) 66 mm[Hg] 01/06/2025 12:39 AM Temperature (8310-5) 98.6 [degF] Oxygen Saturation (10190-3) 97 % Respiratory Rate (9279-1) 18 /min Heart Rate (8867-4) 88 /min Blood Pressure Systolic (8480-6) 110 mm[Hg] Blood Pressure Diastolic (8462-4) 69 mm[Hg] 01/06/2025 06:50 AM Temperature (8310-5) 98.2 [degF] Oxygen Saturation (07853-2) 98 % Respiratory Rate (9279-1) 16 /min Heart Rate (8867-4) 80 /min Blood Pressure Systolic (8480-6) 118 mm[Hg] Blood Pressure Diastolic (8462-4) 58 mm[Hg] 01/07/2025 11:02 AM Temperature (8310-5) 98 [degF] Oxygen Saturation (47645-3) 97 % Respiratory Rate (9279-1) 18 /min Heart Rate (8867-4) 65 /min Blood Pressure Systolic (8480-6) 128 mm[Hg] Blood Pressure Diastolic (8462-4) 60 mm[Hg] 01/07/2025 09:35 PM Temperature (8310-5) 98 [degF] Oxygen Saturation (73297-2) 95 % Respiratory Rate (9279-1) 16 /min Heart Rate (8867-4) 78 /min Blood Pressure Systolic (8480-6) 120 mm[Hg] Blood Pressure Diastolic (8462-4) 78 mm[Hg] 01/08/2025 06:38 AM Temperature (8310-5) 98.2 [degF] Oxygen Saturation (76597-6) 96 % Respiratory Rate (9279-1) 18 /min Heart Rate (8867-4) 88 /min Blood Pressure Systolic (8480-6) 132 mm[Hg] Blood Pressure Diastolic (8462-4) 72 mm[Hg] 01/08/2025 08:53 PM Temperature (8310-5) 97 [degF] Oxygen Saturation (39570-8) 95 % Respiratory Rate (9279-1) 16 /min Heart Rate (8867-4) 88 /min Blood Pressure Systolic (8480-6) 132 mm[Hg] Blood Pressure Diastolic (8462-4) 70 mm[Hg] 01/09/2025 10:35 PM Temperature (8310-5) 98.6 [degF] Oxygen Saturation (37696-3) 96 % Respiratory Rate (9279-1) 20 /min Heart Rate (8867-4) 77 /min Blood Pressure Systolic (8480-6) 92 mm[Hg] Blood Pressure Diastolic (8462-4) 71 mm[Hg] 01/09/2025 06:26 PM Temperature (8310-5) 98 [degF] Oxygen Saturation (76371-8) 95 % Respiratory Rate (9279-1) 18 /min Heart Rate (8867-4) 94 /min Blood Pressure Systolic (8480-6) 117 mm[Hg] Blood Pressure Diastolic (8462-4) 89 mm[Hg] 01/10/2025 06:31 AM Temperature (8310-5) 98 [degF] Oxygen Saturation (51082-9) 97 % Respiratory Rate (9279-1) 16 /min Heart Rate (8867-4) 68 /min Blood Pressure Systolic (8480-6) 112 mm[Hg] Blood Pressure Diastolic (8462-4) 68 mm[Hg] 01/10/2025 10:10 PM Temperature (8310-5) 98.1 [degF] Oxygen Saturation (27587-8) 96 % Respiratory Rate (9279-1) 16 /min Heart Rate (8867-4) 75 /min Blood Pressure Systolic (8480-6) 98 mm[Hg] Blood Pressure Diastolic (8462-4) 63 mm[Hg] 01/11/2025 06:36 AM Temperature (8310-5) 97.4 [degF] Oxygen Saturation (93806-9) 97 % Respiratory Rate (9279-1) 19 /min Heart Rate (8867-4) 83 /min Blood Pressure Systolic (8480-6) 120 mm[Hg] Blood Pressure Diastolic (8462-4) 73 mm[Hg] 01/11/2025 08:44 PM Temperature (8310-5) 98.2 [degF] Oxygen Saturation (93589-8) 98 % Respiratory Rate (9279-1) 15 /min Heart Rate (8867-4) 76 /min Blood Pressure Systolic (8480-6) 110 mm[Hg] Blood Pressure Diastolic (8462-4) 62 mm[Hg] 01/12/2025 06:27 AM Temperature (8310-5) 98 [degF] Oxygen Saturation (97936-4) 96 % Respiratory Rate (9279-1) 18 /min Heart Rate (8867-4) 80 /min Blood Pressure Systolic (8480-6) 118 mm[Hg] Blood Pressure Diastolic (8462-4) 66 mm[Hg] 01/12/2025 08:41 PM Temperature (8310-5) 98.2 [degF] Oxygen Saturation (55326-8) 97 % Respiratory Rate (9279-1) 18 /min Heart Rate (8867-4) 95 /min Blood Pressure Systolic (8480-6) 117 mm[Hg] Blood Pressure Diastolic (8462-4) 77 mm[Hg] 01/14/2025 07:48 AM Temperature (8310-5) 97.3 [degF] Oxygen Saturation (67643-4) 96 % Respiratory Rate (9279-1) 19 /min Heart Rate (8867-4) 74 /min Blood Pressure Systolic (8480-6) 111 mm[Hg] Blood Pressure Diastolic (8462-4) 60 mm[Hg] 01/14/2025 02:18 AM Temperature (8310-5) 97 [degF] Oxygen Saturation (73913-3) 96 % Respiratory Rate (9279-1) 16 /min Heart Rate (8867-4) 80 /min Blood Pressure Systolic (8480-6) 132 mm[Hg] Blood Pressure Diastolic (8462-4) 80 mm[Hg] 01/14/2025 09:43 PM Temperature (8310-5) 98 [degF] Oxygen Saturation (61234-3) 95 % Respiratory Rate (9279-1) 16 /min Heart Rate (8867-4) 80 /min Blood Pressure Systolic (8480-6) 124 mm[Hg] Blood Pressure Diastolic (8462-4) 78 mm[Hg] 01/15/2025 07:52 AM Temperature (8310-5) 97.7 [degF] Oxygen Saturation (77711-7) 95 % Respiratory Rate (9279-1) 18 /min Heart Rate (8867-4) 90 /min Blood Pressure Systolic (8480-6) 134 mm[Hg] Blood Pressure Diastolic (8462-4) 70 mm[Hg] 01/15/2025 08:59 PM Temperature (8310-5) 97 [degF] Oxygen Saturation (11626-4) 96 % Respiratory Rate (9279-1) 18 /min Heart Rate (8867-4) 88 /min Blood Pressure Systolic (8480-6) 120 mm[Hg] Blood Pressure Diastolic (8462-4) 78 mm[Hg] 01/16/2025 01:34 PM Temperature (8310-5) 97.1 [degF] Oxygen Saturation (50974-2) 96 % Respiratory Rate (9279-1) 16 /min Heart Rate (8867-4) 77 /min Blood Pressure Systolic (8480-6) 140 mm[Hg] Blood Pressure Diastolic (8462-4) 71 mm[Hg] 01/16/2025 11:40 PM Temperature (8310-5) 98.1 [degF] Oxygen Saturation (84629-9) 94 % Respiratory Rate (9279-1) 15 /min Heart Rate (8867-4) 74 /min Blood Pressure Systolic (8480-6) 107 mm[Hg] Blood Pressure Diastolic (8462-4) 66 mm[Hg] 01/17/2025 10:22 AM Temperature (8310-5) 97.7 [degF] Oxygen Saturation (09963-5) 99 % Respiratory Rate (9279-1) 18 /min Heart Rate (8867-4) 90 /min Blood Pressure Systolic (8480-6) 129 mm[Hg] Blood Pressure Diastolic (8462-4) 87 mm[Hg] 01/18/2025 02:50 AM Temperature (8310-5) 96.8 [degF] Oxygen Saturation (65703-8) 95 % Respiratory Rate (9279-1) 16 /min Heart Rate (8867-4) 90 /min Blood Pressure Systolic (8480-6) 120 mm[Hg] Blood Pressure Diastolic (8462-4) 59 mm[Hg] 01/18/2025 01:05 PM Temperature (8310-5) 97 [degF] Oxygen Saturation (49095-3) 98 % Respiratory Rate (9279-1) 16 /min Heart Rate (8867-4) 86 /min Blood Pressure Systolic (8480-6) 98 mm[Hg] Blood Pressure Diastolic (8462-4) 61 mm[Hg] 01/18/2025 10:57 PM Temperature (8310-5) 97.8 [degF] Oxygen Saturation (82454-3) 90 % Respiratory Rate (9279-1) 17 /min Heart Rate (8867-4) 57 /min Blood Pressure Systolic (8480-6) 103 mm[Hg] Blood Pressure Diastolic (8462-4) 89 mm[Hg] 01/19/2025 06:34 AM Temperature (8310-5) 97.9 [degF] Oxygen Saturation (54276-8) 95 % Respiratory Rate (9279-1) 18 /min Heart Rate (8867-4) 68 /min Blood Pressure Systolic (8480-6) 116 mm[Hg] Blood Pressure Diastolic (8462-4) 61 mm[Hg] 01/19/2025 11:39 PM Temperature (8310-5) 98 [degF] Oxygen Saturation (24643-9) 95 % Respiratory Rate (9279-1) 18 /min Heart Rate (8867-4) 78 /min Blood Pressure Systolic (8480-6) 122 mm[Hg] Blood Pressure Diastolic (8462-4) 88 mm[Hg] 01/20/2025 06:39 AM Temperature (8310-5) 97.5 [degF] Oxygen Saturation (09899-4) 94 % Respiratory Rate (9279-1) 16 /min Heart Rate (8867-4) 66 /min Blood Pressure Systolic (8480-6) 132 mm[Hg] Blood Pressure Diastolic (8462-4) 64 mm[Hg] 01/20/2025 08:18 PM Temperature (8310-5) 98 [degF] Oxygen Saturation (48280-3) 96 % Respiratory Rate (9279-1) 16 /min Heart Rate (8867-4) 70 /min Blood Pressure Systolic (8480-6) 114 mm[Hg] Blood Pressure Diastolic (8462-4) 80 mm[Hg] 01/21/2025 09:27 AM Temperature (8310-5) 97.9 [degF] Oxygen Saturation (22961-7) 100 % Respiratory Rate (9279-1) 20 /min Heart Rate (8867-4) 79 /min Blood Pressure Systolic (8480-6) 109 mm[Hg] Blood Pressure Diastolic (8462-4) 58 mm[Hg] 01/21/2025 08:29 PM Temperature (8310-5) 98.2 [degF] Oxygen Saturation (76814-4) 95 % Respiratory Rate (9279-1) 16 /min Heart Rate (8867-4) 70 /min Blood Pressure Systolic (8480-6) 132 mm[Hg] Blood Pressure Diastolic (8462-4) 80 mm[Hg] 01/22/2025 09:20 AM Temperature (8310-5) 98 [degF] Oxygen Saturation (37408-1) 96 % Respiratory Rate (9279-1) 18 /min Heart Rate (8867-4) 85 /min Blood Pressure Systolic (8480-6) 176 mm[Hg] Blood Pressure Diastolic (8462-4) 85 mm[Hg] 01/22/2025 08:43 PM Temperature (8310-5) 97 [degF] Oxygen Saturation (78519-0) 95 % Respiratory Rate (9279-1) 16 /min Heart Rate (8867-4) 68 /min Blood Pressure Systolic (8480-6) 126 mm[Hg] Blood Pressure Diastolic (8462-4) 80 mm[Hg] 01/23/2025 09:40 AM Temperature (8310-5) 97.8 [degF] Oxygen Saturation (53213-3) 99 % Respiratory Rate (9279-1) 18 /min Heart Rate (8867-4) 76 /min Blood Pressure Systolic (8480-6) 116 mm[Hg] Blood Pressure Diastolic (8462-4) 68 mm[Hg] 01/23/2025 08:02 PM Temperature (8310-5) 97.6 [degF] Oxygen Saturation (37252-4) 98 % Respiratory Rate (9279-1) 18 /min Heart Rate (8867-4) 71 /min Blood Pressure Systolic (8480-6) 151 mm[Hg] Blood Pressure Diastolic (8462-4) 105 mm[Hg] 01/24/2025 07:03 AM Temperature (8310-5) 98 [degF] Oxygen Saturation (70714-3) 97 % Respiratory Rate (9279-1) 16 /min Heart Rate (8867-4) 70 /min Blood Pressure Systolic (8480-6) 132 mm[Hg] Blood Pressure Diastolic (8462-4) 66 mm[Hg] 01/24/2025 07:58 PM Temperature (8310-5) 98.3 [degF] Oxygen Saturation (03336-1) 97 % Respiratory Rate (9279-1) 15 /min Heart Rate (8867-4) 74 /min Blood Pressure Systolic (8480-6) 138 mm[Hg] Blood Pressure Diastolic (8462-4) 93 mm[Hg] 01/25/2025 06:28 AM Temperature (8310-5) 98 [degF] Oxygen Saturation (14898-3) 97 % Respiratory Rate (9279-1) 17 /min Heart Rate (8867-4) 65 /min Blood Pressure Systolic (8480-6) 141 mm[Hg] Blood Pressure Diastolic (8462-4) 85 mm[Hg] 01/25/2025 01:45 PM Body Weight (04756-6) 179.6 [lb_av ] Body Mass Index (43584-2) 27.31 kg/m2 01/25/2025 09:52 PM Temperature (8310-5) 98.3 [degF] Oxygen Saturation (62587-6) 97 % Respiratory Rate (9279-1) 15 /min Heart Rate (8867-4) 77 /min Blood Pressure Systolic (8480-6) 93 mm[Hg] Blood Pressure Diastolic (8462-4) 55 mm[Hg] 01/26/2025 06:34 AM Temperature (8310-5) 98 [degF] Oxygen Saturation (90778-6) 95 % Respiratory Rate (9279-1) 16 /min Heart Rate (8867-4) 70 /min Blood Pressure Systolic (8480-6) 118 mm[Hg] Blood Pressure Diastolic (8462-4) 62 mm[Hg] 01/27/2025 03:23 AM Temperature (8310-5) 97.8 [degF] Oxygen Saturation (10576-2) 94 % Respiratory Rate (9279-1) 18 /min Heart Rate (8867-4) 73 /min Blood Pressure Systolic (8480-6) 120 mm[Hg] Blood Pressure Diastolic (8462-4) 69 mm[Hg] 01/27/2025 09:14 AM Temperature (8310-5) 98.2 [degF] Oxygen Saturation (48330-5) 99 % Respiratory Rate (9279-1) 18 /min Heart Rate (8867-4) 78 /min Blood Pressure Systolic (8480-6) 105 mm[Hg] Blood Pressure Diastolic (8462-4) 60 mm[Hg] 01/27/2025 09:08 PM Temperature (8310-5) 98 [degF] Oxygen Saturation (57127-7) 95 % Respiratory Rate (9279-1) 18 /min Heart Rate (8867-4) 88 /min Blood Pressure Systolic (8480-6) 132 mm[Hg] Blood Pressure Diastolic (8462-4) 78 mm[Hg] 01/28/2025 11:34 AM Temperature (8310-5) 97.7 [degF] Oxygen Saturation (41244-7) 92 % Respiratory Rate (9279-1) 16 /min Heart Rate (8867-4) 70 /min Blood Pressure Systolic (8480-6) 109 mm[Hg] Blood Pressure Diastolic (8462-4) 55 mm[Hg] 01/28/2025 10:17 PM Temperature (8310-5) 97 [degF] Oxygen Saturation (73846-2) 95 % Respiratory Rate (9279-1) 16 /min Heart Rate (8867-4) 88 /min Blood Pressure Systolic (8480-6) 132 mm[Hg] Blood Pressure Diastolic (8462-4) 88 mm[Hg] 01/29/2025 10:28 AM Temperature (8310-5) 97.6 [degF] Oxygen Saturation (94590-8) 94 % Respiratory Rate (9279-1) 22 /min Heart Rate (8867-4) 62 /min Blood Pressure Systolic (8480-6) 122 mm[Hg] Blood Pressure Diastolic (8462-4) 67 mm[Hg] 01/29/2025 08:55 PM Temperature (8310-5) 98 [degF] Oxygen Saturation (27186-2) 96 % Respiratory Rate (9279-1) 18 /min Heart Rate (8867-4) 80 /min Blood Pressure Systolic (8480-6) 132 mm[Hg] Blood Pressure Diastolic (8462-4) 88 mm[Hg] 01/30/2025 10:00 AM Temperature (8310-5) 96.8 [degF] Oxygen Saturation (93127-0) 99 % Respiratory Rate (9279-1) 20 /min Heart Rate (8867-4) 64 /min Blood Pressure Systolic (8480-6) 100 mm[Hg] Blood Pressure Diastolic (8462-4) 68 mm[Hg] 01/31/2025 01:20 AM Temperature (8310-5) 97 [degF] Oxygen Saturation (14263-3) 98 % Respiratory Rate (9279-1) 15 /min Heart Rate (8867-4) 85 /min Blood Pressure Systolic (8480-6) 123 mm[Hg] Blood Pressure Diastolic (8462-4) 62 mm[Hg] 01/31/2025 05:21 PM Temperature (8310-5) 98 [degF] Oxygen Saturation (23989-4) 96 % Respiratory Rate (9279-1) 16 /min Heart Rate (8867-4) 73 /min Blood Pressure Systolic (8480-6) 129 mm[Hg] Blood Pressure Diastolic (8462-4) 68 mm[Hg] 02/01/2025 04:22 AM Respiratory Rate (9279-1) 17 /min Blood Pressure Systolic (8480-6) 128 mm[Hg] Blood Pressure Diastolic (8462-4) 72 mm[Hg] 02/01/2025 04:17 AM Temperature (8310-5) 96.8 [degF] 02/01/2025 05:47 AM Temperature (8310-5) 97 [degF] Oxygen Saturation (43335-9) 96 % Respiratory Rate (9279-1) 18 /min Heart Rate (8867-4) 63 /min Blood Pressure Systolic (8480-6) 115 mm[Hg] Blood Pressure Diastolic (8462-4) 69 mm[Hg] 02/01/2025 04:23 AM Oxygen Saturation (50753-9) 98 % 02/01/2025 04:21 AM Heart Rate (8867-4) 65 /min 02/01/2025 09:44 PM Temperature (8310-5) 97.3 [degF] Heart Rate (8867-4) 65 /min 02/01/2025 09:48 PM Oxygen Saturation (78700-3) 97 % 02/01/2025 09:45 PM Respiratory Rate (9279-1) 17 /min 02/01/2025 09:46 PM Blood Pressure Systolic (8480-6) 1 18 mm[Hg] Blood Pressure Diastolic (8462-4) 67 mm[Hg] 02/02/2025 07:18 AM Body Weight (23517-3) 184.8 [lb_av ] Body Mass Index (28149-9) 28.1 kg/m2 02/02/2025 06:23 AM Temperature (8310-5) 98 [degF] Oxygen Saturation (46264-2) 97 % Respiratory Rate (9279-1) 18 /min Heart Rate (8867-4) 60 /min Blood Pressure Systolic (8480-6) 120 mm[Hg] Blood Pressure Diastolic (8462-4) 62 mm[Hg] 02/02/2025 08:06 PM Temperature (8310-5) 98.3 [degF] Oxygen Saturation (18217-9) 94 % Respiratory Rate (9279-1) 20 /min Heart Rate (8867-4) 62 /min Blood Pressure Systolic (8480-6) 107 mm[Hg] Blood Pressure Diastolic (8462-4) 56 mm[Hg] 02/03/2025 06:12 AM Temperature (8310-5) 98 [degF] Oxygen Saturation (68674-9) 96 % Respiratory Rate (9279-1) 16 /min Heart Rate (8867-4) 66 /min Blood Pressure Systolic (8480-6) 118 mm[Hg] Blood Pressure Diastolic (8462-4) 66 mm[Hg] 02/03/2025 07:26 PM Temperature (8310-5) 98.1 [degF] Oxygen Saturation (38945-9) 95 % Respiratory Rate (9279-1) 14 /min Heart Rate (8867-4) 66 /min Blood Pressure Systolic (8480-6) 112 mm[Hg] Blood Pressure Diastolic (8462-4) 62 mm[Hg] 02/04/2025 06:48 AM Temperature (8310-5) 98.2 [degF] Oxygen Saturation (56408-1) 96 % Respiratory Rate (9279-1) 16 /min Heart Rate (8867-4) 70 /min Blood Pressure Systolic (8480-6) 120 mm[Hg] Blood Pressure Diastolic (8462-4) 68 mm[Hg] 02/04/2025 07:54 PM Temperature (8310-5) 97.1 [degF] Oxygen Saturation (64488-7) 98 % Respiratory Rate (9279-1) 18 /min Heart Rate (8867-4) 62 /min Blood Pressure Systolic (8480-6) 135 mm[Hg] Blood Pressure Diastolic (8462-4) 77 mm[Hg] 02/05/2025 06:25 AM Temperature (8310-5) 97.5 [degF] Oxygen Saturation (60325-2) 94 % Respiratory Rate (9279-1) 16 /min Heart Rate (8867-4) 66 /min Blood Pressure Systolic (8480-6) 120 mm[Hg] Blood Pressure Diastolic (8462-4) 68 mm[Hg] 02/05/2025 08:01 PM Temperature (8310-5) 96.8 [degF] Oxygen Saturation (37832-6) 97 % Respiratory Rate (9279-1) 16 /min Heart Rate (8867-4) 70 /min Blood Pressure Systolic (8480-6) 98 mm[Hg] Blood Pressure Diastolic (8462-4) 61 mm[Hg] 02/06/2025 05:11 PM Temperature (8310-5) 97.1 [degF] Oxygen Saturation (75281-5) 97 % Respiratory Rate (9279-1) 19 /min Heart Rate (8867-4) 70 /min Blood Pressure Systolic (8480-6) 106 mm[Hg] Blood Pressure Diastolic (8462-4) 66 mm[Hg] Social History No smoking Hx information available Encounters Type CPT Code Date Location Provider Indication s encounter report 11/03/2024 05:4 4 PM - 11/03/2024 05:47 PM Vinnie N Garcia DO 03 encounter report 05/27/2023 10:5 3 PM - 06/21/2024 07:38 PM Vinnie N Garcia DO 02 encounter report 11/18/2024 01:0 3 PM - 11/25/2024 10:08 PM Vinnie N Garcia DO 03 encounter report 11/18/2024 01:0 3 PM - 12/20/2024 11:25 PM Vinnie N Garcia DO 03 encounter report 11/18/2024 01:0 3 PM - 01/06/2025 12:42 PM Vinnie N Garcia DO 03 Advance Directives Directive Description Verification Date Supporting Document(s) Other Directive
--- OUTSIDE RECORDS SUMMARY | 2025-04-10 15:16 | XMS_ITS ---
Author Organization Unknown Medications Date Medication Dosage DosageUnit StartDate StopDate StopReason Active DoseQuantity DoseUnit Dispense DispenseUnit Refills NdcCode DrugCode PharmacyId IsPrescription MappedMedication Srcstatus Custom 03/31 00:00 :00 Albuterol Sulfate 108 (90 Base) MCG/ACT Aerosol Powder Breath Activated 1 Taking 03/01 00:00 :00 Albuterol Sulfate 108 (90 Base) MCG/ACT Aerosol Powder Breath Activated 1 Taking 02/01 00:00 :00 Albuterol Sulfate 108 (90 Base) MCG/ACT Aerosol Powder Breath Activated 1 Taking 01/25 00:00 :00 Albuterol Sulfate 108 (90 Base) MCG/ACT Aerosol Powder Breath Activated 1 Taking 12/20 00:00 :00 Albuterol Sulfate 108 (90 Base) MCG/ACT Aerosol Powder Breath Activated 1 Taking 12/20 00:00 :00 Albuterol Sulfate 108 (90 Base) MCG/ACT Aerosol Powder Breath Activated 1 Taking 05/26 00:00 :00 Albuterol Sulfate 108 (90 Base) MCG/ACT Aerosol Powder Breath Activated 1 Taking 03/31 00:00 :00 Amiodarone HCl 200 MG Tablet 1 [id number] 20 392 Taking 03/01 00:00 :00 Amiodarone HCl 200 MG Tablet 1 [id number] 20 392 Taking 02/01 00:00 :00 Amiodarone HCl 200 MG Tablet 1 778041 20 392 Taking 01/25 00:00 :00 Amiodarone HCl 200 MG Tablet 1 [id number] 20 392 Taking 12/20 00:00 :00 Amiodarone HCl 200 MG Tablet 1 [id number] 20 392 Taking 12/20 00:00 :00 Amiodarone HCl 200 MG Tablet 1 001998 20 392 Taking 05/26 00:00 :00 Amiodarone HCl 200 MG Tablet 1 [id number] 20 392 Taking 03/31 00:00 :00 bisacodyl 10 MG Rectal Suppository [Dulcolax] 07/23/2023 00:00:00 1 0 Taking 03/01 00:00 :00 bisacodyl 10 MG Rectal Suppository [Dulcolax] 07/23/2023 00:00:00 1 0 Taking 02/01 00:00 :00 bisacodyl 10 MG Rectal Suppository [Dulcolax] 07/23/2023 00:00:00 1 0 Taking 01/25 00:00 :00 bisacodyl 10 MG Rectal Suppository [Dulcolax] 07/23/2023 00:00:00 1 0 Taking 12/20 00:00 :00 bisacodyl 10 MG Rectal Suppository [Dulcolax] 07/23/2023 00:00:00 1 0 Taking 12/20 00:00 :00 bisacodyl 10 MG Rectal Suppository [Dulcolax] 07/23/2023 00:00:00 1 0 Taking 05/26 00:00 :00 bisacodyl 10 MG Rectal Suppository [Dulcolax] 07/23/2023 00:00:00 1 0 Taking 03/31 00:00 :00 Carvedilol 6.25 MG Tablet 1 0009 3013 501 Taking 03/01 00:00 :00 Carvedilol 6.25 MG Tablet 1 0009 3013 501 Taking 02/01 00:00 :00 Carvedilol 6.25 MG Tablet 1 0009 3013 501 Taking 01/25 00:00 :00 Carvedilol 6.25 MG Tablet 1 0009 3013 501 Taking 12/20 00:00 :00 Carvedilol 6.25 MG Tablet 1 0009 3013 501 Taking 03/31 00:00 :00 cholecalcif pricilla 1.25 MG Oral Tablet 07/23/2023 00:00:00 0 0 [facility] 03/01 00:00 :00 cholecalcif pricilla 1.25 MG Oral Tablet 07/23/2023 00:00:00 0 0 Not [facility] 02/01 00:00 :00 cholecalcif pricilla 1.25 MG Oral Tablet 07/23/2023 00:00:00 0 0 Not [facility] 01/25 00:00 :00 cholecalcif pricilla 1.25 MG Oral Tablet 07/23/2023 00:00:00 0 0 Not [facility] 12/20 00:00 :00 cholecalcif pricilla 1.25 MG Oral Tablet 07/23/2023 00:00:00 0 0 Not [facility] 12/20 00:00 :00 cholecalcif pricilla 1.25 MG Oral Tablet 07/23/2023 00:00:00 0 0 Not [facility] 05/26 00:00 :00 cholecalcif pricilla 1.25 MG Oral Tablet 07/23/2023 00:00:00 0 0 Not [facility] 03/31 00:00 :00 Coenzyme Q10 10 MG Capsule 1 [id number] 80 042 Taking 03/01 00:00 :00 Coenzyme Q10 10 MG Capsule 1 762487 80 042 Taking 02/01 00:00 :00 Coenzyme Q10 10 MG Capsule 1 228031 80 042 Taking 01/25 00:00 :00 Coenzyme Q10 10 MG Capsule 1 341718 80 042 Taking 12/20 00:00 :00 Coenzyme Q10 10 MG Capsule 1 442758 80 042 Taking 03/31 00:00 :00 Colace 100 MG Capsule 0 [id number] 101 Not Taking 03/01 00:00 :00 Colace 100 MG Capsule 0 94361822 101 Not Taking 02/01 00:00 :00 Colace 100 MG Capsule 0 97117584 101 Not Taking 01/25 00:00 :00 Colace 100 MG Capsule 0 [id number] 101 Not Taking 12/20 00:00 :00 Colace 100 MG Capsule 0 45052084 101 Not Taking 12/20 00:00 :00 Colace 100 MG Capsule 0 [id number] 101 Not Taking 05/26 00:00 :00 Colace 100 MG Capsule 0 [id number] 101 Not Taking 03/31 00:00 :00 Cranberry 250 MG Tablet 1 Taking 03/01 00:00 :00 Cranberry 250 MG Tablet 1 Taking 02/01 00:00 :00 Cranberry 250 MG Tablet 1 Taking 01/25 00:00 :00 Cranberry 250 MG Tablet 1 Taking 12/20 00:00 :00 Cranberry 250 MG Tablet 1 Taking 03/31 00:00 :00 Diltiazem Hydrochlori de 60 MG Oral Tablet 07/23/2023 00:00:00 0 0 Not [facility] 03/01 00:00 :00 Diltiazem Hydrochlori de 60 MG Oral Tablet 07/23/2023 00:00:00 0 0 Not [facility] 02/01 00:00 :00 Diltiazem Hydrochlori de 60 MG Oral Tablet 07/23/2023 00:00:00 0 0 [facility] 01/25 00:00 :00 Diltiazem Hydrochlori de 60 MG Oral Tablet 07/23/2023 00:00:00 0 0 [facility] 12/20 00:00 :00 Diltiazem Hydrochlori de 60 MG Oral Tablet 07/23/2023 00:00:00 0 0 My [facility] 12/20 00:00 :00 Diltiazem Hydrochlori de 60 MG Oral Tablet 07/23/2023 00:00:00 0 0 [facility] 05/26 00:00 :00 Diltiazem Hydrochlori de 60 MG Oral Tablet 07/23/2023 00:00:00 0 0 [facility] 03/31 00:00 :00 Dulcolax 10 MG Suppository 0 814 46343 101 Not Taking 03/01 00:00 :00 Dulcolax 10 MG Suppository 0 814 61454 101 Not Taking 02/01 00:00 :00 Dulcolax 10 MG Suppository 0 814 74034 101 Not Taking 01/25 00:00 :00 Dulcolax 10 MG Suppository 0 814 20844 101 Not Taking 12/20 00:00 :00 Dulcolax 10 MG Suppository 0 814 36652 101 Not Taking 12/20 00:00 :00 Dulcolax 10 MG Suppository 0 814 27779 101 Not Taking 05/26 00:00 :00 Dulcolax 10 MG Suppository 0 814 12155 101 Not Taking 12/20 00:00 :00 Ertapenem Sodium 1 GM Solution Reconstitut ed 03/23/2024 00:00:00 0 1089401 9 801 P Discontinu ed 12/20 00:00 :00 Ertapenem Sodium 1 GM Solution Reconstitut ed 03/23/2024 00:00:00 1 6843096 9 801 P Taking 05/26 00:00 :00 Ertapenem Sodium 1 GM Solution Reconstitut ed 03/23/2024 00:00:00 1 [id number] 9 801 P Taking 03/31 00:00 :00 Finasteride 5 MG Tablet 07/23/2023 00:00:00 1 0 5960554 6 105 Taking 03/01 00:00 :00 Finasteride 5 MG Tablet 07/23/2023 00:00:00 1 0 [id number] 6 105 Taking 02/01 00:00 :00 Finasteride 5 MG Tablet 07/23/2023 00:00:00 1 0 [id number] 6 105 Taking 01/25 00:00 :00 Finasteride 5 MG Tablet 07/23/2023 00:00:00 1 0 [id number] 6 105 Taking 12/20 00:00 :00 Finasteride 5 MG Tablet 07/23/2023 00:00:00 1 0 5652627 6 105 Taking 12/20 00:00 :00 Finasteride 5 MG Tablet 07/23/2023 00:00:00 1 0 [id number] 6 105 Taking 05/26 00:00 :00 Finasteride 5 MG Tablet 07/23/2023 00:00:00 1 0 [id number] 6 105 Taking 03/31 00:00 :00 Fish Oil 1000 MG Capsule 1 50146 017 140 Taking 03/01 00:00 :00 Fish Oil 1000 MG Capsule 1 72196 017 140 Taking 02/01 00:00 :00 Fish Oil 1000 MG Capsule 1 56005 017 140 Taking 01/25 00:00 :00 Fish Oil 1000 MG Capsule 1 35649 017 140 Taking 12/20 00:00 :00 Fish Oil 1000 MG Capsule 1 62759 017 140 Taking 03/31 00:00 :00 Fluconazole 200 MG Tablet 03/23/2024 00:00:00 0 [id number] 0 106 P Not Taking 03/01 00:00 :00 Fluconazole 200 MG Tablet 03/23/2024 00:00:00 0 [id number] 0 106 P Not Taking 02/01 00:00 :00 Fluconazole 200 MG Tablet 03/23/2024 00:00:00 0 [id number] 0 106 P Not Taking 01/25 00:00 :00 Fluconazole 200 MG Tablet 03/23/2024 00:00:00 0 [id number] 0 106 P Not Taking 12/20 00:00 :00 Fluconazole 200 MG Tablet 03/23/2024 00:00:00 0 [id number] 0 106 P Not Taking 12/20 00:00 :00 Fluconazole 200 MG Tablet 03/23/2024 00:00:00 0 [id number] 0 106 P Not Taking 05/26 00:00 :00 Fluconazole 200 MG Tablet 03/23/2024 00:00:00 0 [id number] 0 106 P Not Taking 03/31 00:00 :00 fluticasone propionate 0.1 MG/ACTUAT / salmeterol 0.05 MG/ACTUAT Dry Powder Inhaler 07/23/2023 00:00:00 0 0 [facility] 03/01 00:00 :00 fluticasone propionate 0.1 MG/ACTUAT / salmeterol 0.05 MG/ACTUAT Dry Powder Inhaler 07/23/2023 00:00:00 0 0 [facility] 02/01 00:00 :00 fluticasone propionate 0.1 MG/ACTUAT / salmeterol 0.05 MG/ACTUAT Dry Powder Inhaler 07/23/2023 00:00:00 0 0 [facility] 01/25 00:00 :00 fluticasone propionate 0.1 MG/ACTUAT / salmeterol 0.05 MG/ACTUAT Dry Powder Inhaler 07/23/2023 00:00:00 0 0 My [facility] 12/20 00:00 :00 fluticasone propionate 0.1 MG/ACTUAT / salmeterol 0.05 MG/ACTUAT Dry Powder Inhaler 07/23/2023 00:00:00 0 0 My [facility] 12/20 00:00 :00 fluticasone propionate 0.1 MG/ACTUAT / salmeterol 0.05 MG/ACTUAT Dry Powder Inhaler 07/23/2023 00:00:00 0 0 My [facility] 05/26 00:00 :00 fluticasone propionate 0.1 MG/ACTUAT / salmeterol 0.05 MG/ACTUAT Dry Powder Inhaler 07/23/2023 00:00:00 0 0 My [facility] 03/31 00:00 :00 Fosfomycin Tromethamin e 3 GM Packet 02/01/2025 00:00:00 1 [id number] 5 501 P Taking 03/01 00:00 :00 Fosfomycin Tromethamin e 3 GM Packet 02/01/2025 00:00:00 1 [id number] 5 501 P Taking 02/01 00:00 :00 Fosfomycin Tromethamin e 3 GM Packet 02/01/2025 00:00:00 1 [id number] 5 501 P Start 03/31 00:00 :00 Furosemide 20 MG Oral Tablet 07/23/2023 00:00:00 1 0 Taking 03/01 00:00 :00 Furosemide 20 MG Oral Tablet 07/23/2023 00:00:00 1 0 Taking 02/01 00:00 :00 Furosemide 20 MG Oral Tablet 07/23/2023 00:00:00 1 0 Taking 01/25 00:00 :00 Furosemide 20 MG Oral Tablet 07/23/2023 00:00:00 1 0 Taking 12/20 00:00 :00 Furosemide 20 MG Oral Tablet 07/23/2023 00:00:00 1 0 Taking 12/20 00:00 :00 Furosemide 20 MG Oral Tablet 07/23/2023 00:00:00 1 0 Taking 05/26 00:00 :00 Furosemide 20 MG Oral Tablet 07/23/2023 00:00:00 1 0 Taking 03/31 00:00 :00 Gabapentin 400 MG Capsule 0 0090 4666 761 Not Taking 03/01 00:00 :00 Gabapentin 400 MG Capsule 0 0090 4666 761 Not Taking 02/01 00:00 :00 Gabapentin 400 MG Capsule 0 0090 4666 761 Not Taking 01/25 00:00 :00 Gabapentin 400 MG Capsule 0 0090 4666 761 Not Taking 12/20 00:00 :00 Gabapentin 400 MG Capsule 0 0090 4666 761 Not Taking 12/20 00:00 :00 Gabapentin 400 MG Capsule 0 0090 4666 761 Not Taking 05/26 00:00 :00 Gabapentin 400 MG Capsule 0 0090 4666 761 Not Taking 03/31 00:00 :00 Galantamine Hydrobromid e 4 MG Tablet 1 8349893 0 406 Taking 03/01 00:00 :00 Galantamine Hydrobromid e 4 MG Tablet 1 0299391 0 406 Taking 02/01 00:00 :00 Galantamine Hydrobromid e 4 MG Tablet 1 0451272 0 406 Taking 01/25 00:00 :00 Galantamine Hydrobromid e 4 MG Tablet 1 6523256 0 406 Taking 12/20 00:00 :00 Galantamine Hydrobromid e 4 MG Tablet 1 7076520 0 406 Taking 12/20 00:00 :00 Galantamine Hydrobromid e 4 MG Tablet 1 7158680 0 406 Taking 05/26 00:00 :00 Galantamine Hydrobromid e 4 MG Tablet 1 8864053 0 406 Taking 03/31 00:00 :00 insulin aspart, human 100 UNT/ML Injectable Solution [NovoLog] 09/25/2023 00:00:00 8 00:00:00 0 0 Not Taking 03/01 00:00 :00 insulin aspart, human 100 UNT/ML Injectable Solution [NovoLog] 09/25/2023 00:00:00 8 00:00:00 0 0 Not Taking 02/01 00:00 :00 insulin aspart, human 100 UNT/ML Injectable Solution [NovoLog] 09/25/2023 00:00:00 8 00:00:00 0 0 Not Taking 01/25 00:00 :00 insulin aspart, human 100 UNT/ML Injectable Solution [NovoLog] 09/25/2023 00:00:00 8 00:00:00 0 0 Not Taking 12/20 00:00 :00 insulin aspart, human 100 UNT/ML Injectable Solution [NovoLog] 09/25/2023 00:00:00 8 00:00:00 0 0 Not Taking 12/20 00:00 :00 insulin aspart, human 100 UNT/ML Injectable Solution [NovoLog] 09/25/2023 00:00:00 8 00:00:00 0 0 Not Taking 05/26 00:00 :00 insulin aspart, human 100 UNT/ML Injectable Solution [NovoLog] 09/25/2023 00:00:00 8 00:00:00 0 0 Not Taking 03/31 00:00 :00 Insulin Glargine 100 UNIT/ML Solution Pen-injecto r 1 Taking 03/01 00:00 :00 Insulin Glargine 100 UNIT/ML Solution Pen-injecto r 1 Taking 02/01 00:00 :00 Insulin Glargine 100 UNIT/ML Solution Pen-injecto r 1 Taking 01/25 00:00 :00 Insulin Glargine 100 UNIT/ML Solution Pen-injecto r 1 Taking 12/20 00:00 :00 Insulin Glargine 100 UNIT/ML Solution Pen-injecto r 1 Taking 12/20 00:00 :00 Insulin Glargine 100 UNIT/ML Solution Pen-injecto r 1 Taking 05/26 00:00 :00 Insulin Glargine 100 UNIT/ML Solution Pen-injecto r 1 Taking 03/31 00:00 :00 Linezolid 1 [facility] 03/01 00:00 :00 Linezolid 1 [facility] 02/01 00:00 :00 Linezolid 1 [facility] 01/25 00:00 :00 Linezolid 1 [facility] 12/20 00:00 :00 Linezolid 1 [facility] 12/20 00:00 :00 Linezolid 1 Yao [facility] 05/26 00:00 :00 Linezolid 1 Y[facility] 03/31 00:00 :00 Losartan Potassium 50 MG Oral Tablet 07/23/2023 00:00:00 0 0 Not [facility] 03/01 00:00 :00 Losartan Potassium 50 MG Oral Tablet 07/23/2023 00:00:00 0 0 Not [facility] 02/01 00:00 :00 Losartan Potassium 50 MG Oral Tablet 07/23/2023 00:00:00 0 0 Not [facility] 01/25 00:00 :00 Losartan Potassium 50 MG Oral Tablet 07/23/2023 00:00:00 0 0 Not [facility] 12/20 00:00 :00 Losartan Potassium 50 MG Oral Tablet 07/23/2023 00:00:00 0 0 Not [facility] 12/20 00:00 :00 Losartan Potassium 50 MG Oral Tablet 07/23/2023 00:00:00 0 0 Not [facility] 05/26 00:00 :00 Losartan Potassium 50 MG Oral Tablet 07/23/2023 00:00:00 0 0 Not [facility] 03/31 00:00 :00 Melatonin 1 MG/4ML Liquid 0 [id number] 402 Not Taking 03/01 00:00 :00 Melatonin 1 MG/4ML Liquid 0 40255696 402 Not Taking 02/01 00:00 :00 Melatonin 1 MG/4ML Liquid 0 [id number] 402 Not Taking 01/25 00:00 :00 Melatonin 1 MG/4ML Liquid 0 51284056 402 Not Taking 12/20 00:00 :00 Melatonin 1 MG/4ML Liquid 0 [id number] 402 Not Taking 12/20 00:00 :00 Melatonin 1 MG/4ML Liquid 0 [id number] 402 Not Taking 05/26 00:00 :00 Melatonin 1 MG/4ML Liquid 0 [id number] 402 Not Taking 03/31 00:00 :00 Melatonin 1 MG Oral Tablet 07/23/2023 00:00:00 1 0 Taking 03/01 00:00 :00 Melatonin 1 MG Oral Tablet 07/23/2023 00:00:00 1 0 Taking 02/01 00:00 :00 Melatonin 1 MG Oral Tablet 07/23/2023 00:00:00 1 0 Taking 01/25 00:00 :00 Melatonin 1 MG Oral Tablet 07/23/2023 00:00:00 1 0 Taking 12/20 00:00 :00 Melatonin 1 MG Oral Tablet 07/23/2023 00:00:00 1 0 Taking 12/20 00:00 :00 Melatonin 1 MG Oral Tablet 07/23/2023 00:00:00 0 0 My [facility] 05/26 00:00 :00 Melatonin 1 MG Oral Tablet 07/23/2023 00:00:00 0 0 My [facility] 03/31 00:00 :00 menthol 0.0044 MG/MG / zinc oxide 0.206 MG/MG Topical Ointment 09/25/2023 00:00:00 00:00:00 0 0 Taking 03/01 00:00 :00 menthol 0.0044 MG/MG / zinc oxide 0.206 MG/MG Topical Ointment 09/25/2023 00:00:00 00:00:00 0 0 Taking 02/01 00:00 :00 menthol 0.0044 MG/MG / zinc oxide 0.206 MG/MG Topical Ointment 09/25/2023 00:00:00 00:00:00 0 0 Taking 01/25 00:00 :00 menthol 0.0044 MG/MG / zinc oxide 0.206 MG/MG Topical Ointment 09/25/2023 00:00:00 00:00:00 0 0 Taking 12/20 00:00 :00 menthol 0.0044 MG/MG / zinc oxide 0.206 MG/MG Topical Ointment 09/25/2023 00:00:00 00:00:00 0 0 Taking 12/20 00:00 :00 menthol 0.0044 MG/MG / zinc oxide 0.206 MG/MG Topical Ointment 09/25/2023 00:00:00 00:00:00 0 0 Taking 05/26 00:00 :00 menthol 0.0044 MG/MG / zinc oxide 0.206 MG/MG Topical Ointment 09/25/2023 00:00:00 00:00:00 0 0 Taking 03/31 00:00 :00 metFORMIN HCl 500 MG Tablet 07/23/2023 00:00:00 0 0 [id number] 0 803 Not Taking 03/01 00:00 :00 metFORMIN HCl 500 MG Tablet 07/23/2023 00:00:00 0 0 [id number] 0 803 Not Taking 02/01 00:00 :00 metFORMIN HCl 500 MG Tablet 07/23/2023 00:00:00 0 0 [id number] 0 803 Not Taking 01/25 00:00 :00 metFORMIN HCl 500 MG Tablet 07/23/2023 00:00:00 0 0 [id number] 0 803 Not Taking 12/20 00:00 :00 metFORMIN HCl 500 MG Tablet 07/23/2023 00:00:00 0 0 [id number] 0 803 Not Taking 12/20 00:00 :00 metFORMIN HCl 500 MG Tablet 07/23/2023 00:00:00 0 0 [id number] 0 803 Not Taking 05/26 00:00 :00 metFORMIN HCl 500 MG Tablet 07/23/2023 00:00:00 0 0 [id number] 0 803 Not Taking 03/31 00:00 :00 Methocarbam ol 750 MG Oral Tablet 07/23/2023 00:00:00 0 0 My [facility] 03/01 00:00 :00 Methocarbam ol 750 MG Oral Tablet 07/23/2023 00:00:00 0 0 My [facility] 02/01 00:00 :00 Methocarbam ol 750 MG Oral Tablet 07/23/2023 00:00:00 0 0 My [facility] 01/25 00:00 :00 Methocarbam ol 750 MG Oral Tablet 07/23/2023 00:00:00 0 0 My [facility] 12/20 00:00 :00 Methocarbam ol 750 MG Oral Tablet 07/23/2023 00:00:00 0 0 My [facility] 12/20 00:00 :00 Methocarbam ol 750 MG Oral Tablet 07/23/2023 00:00:00 0 0 My [facility] 05/26 00:00 :00 Methocarbam ol 750 MG Oral Tablet 07/23/2023 00:00:00 0 0 My [facility] 03/31 00:00 :00 Metoprolol Tartrate 50 MG Tablet 1 0037 8003 201 Taking 03/01 00:00 :00 Metoprolol Tartrate 50 MG Tablet 1 7 8003 201 Taking 02/01 00:00 :00 Metoprolol Tartrate 50 MG Tablet 1 7 800 201 Taking 01/25 00:00 :00 Metoprolol Tartrate 50 MG Tablet 1 7 800 201 Taking 12/20 00:00 :00 Metoprolol Tartrate 50 MG Tablet 1 7 8003 201 Taking 12/20 00:00 :00 Metoprolol Tartrate 50 MG Tablet 1 7 8003 201 Taking 05/26 00:00 :00 Metoprolol Tartrate 50 MG Tablet 1 7 8003 201 Taking 03/31 00:00 :00 MiraLax 17 GM/SCOO P Powder 0 [id number] 454 Not Taking 03/01 00:00 :00 MiraLax 17 GM/SCOO P Powder 0 49773415 454 Not Taking 02/01 00:00 :00 MiraLax 17 GM/SCOO P Powder 0 81042585 454 Not Taking 01/25 00:00 :00 MiraLax 17 GM/SCOO P Powder 0 82393547 454 Not Taking 12/20 00:00 :00 MiraLax 17 GM/SCOO P Powder 0 [id number] 454 Not Taking 12/20 00:00 :00 MiraLax 17 GM/SCOO P Powder 0 35085365 454 Not Taking 05/26 00:00 :00 MiraLax 17 GM/SCOO P Powder 0 94557867 454 Not Taking 03/31 00:00 :00 Mometasone Furoate 50 MCG/ACT Suspension 0 8604699 8 130 Not Taking 03/01 00:00 :00 Mometasone Furoate 50 MCG/ACT Suspension 0 4583845 8 130 Not Taking 02/01 00:00 :00 Mometasone Furoate 50 MCG/ACT Suspension 0 5147140 8 130 Not Taking 01/25 00:00 :00 Mometasone Furoate 50 MCG/ACT Suspension 0 8881820 8 130 Not Taking 12/20 00:00 :00 Mometasone Furoate 50 MCG/ACT Suspension 0 6259774 8 130 Not Taking 12/20 00:00 :00 Mometasone Furoate 50 MCG/ACT Suspension 0 9414639 8 130 Not Taking 05/26 00:00 :00 Mometasone Furoate 50 MCG/ACT Suspension 0 1448951 8 130 Not Taking 03/31 00:00 :00 mometasone furoate 0.05 MG/ACTUAT Metered Dose Nasal [place] 07/23/2023 00:00:00 0 0 Not [facility] 03/01 00:00 :00 mometasone furoate 0.05 MG/ACTUAT Metered Dose Nasal [place] 07/23/2023 00:00:00 0 0 My [facility] 02/01 00:00 :00 mometasone furoate 0.05 MG/ACTUAT Metered Dose Nasal [place] 07/23/2023 00:00:00 0 0 My [facility] 01/25 00:00 :00 mometasone furoate 0.05 MG/ACTUAT Metered Dose Nasal [place] 07/23/2023 00:00:00 0 0 My [facility] 12/20 00:00 :00 mometasone furoate 0.05 MG/ACTUAT Metered Dose Nasal [place] 07/23/2023 00:00:00 0 0 My [facility] 12/20 00:00 :00 mometasone furoate 0.05 MG/ACTUAT Metered Dose Nasal [place] 07/23/2023 00:00:00 0 0 My [facility] 05/26 00:00 :00 mometasone furoate 0.05 MG/ACTUAT Metered Dose Nasal [place] 07/23/2023 00:00:00 0 0 My [facility] 03/31 00:00 :00 NovoLOG 100 UNIT/ML Solution 1 [id number] 111 Taking 03/01 00:00 :00 NovoLOG 100 UNIT/ML Solution 1 [id number] 111 Taking 02/01 00:00 :00 NovoLOG 100 UNIT/ML Solution 1 [id number] 111 Taking 01/25 00:00 :00 NovoLOG 100 UNIT/ML Solution 1 [id number] 111 Taking 12/20 00:00 :00 NovoLOG 100 UNIT/ML Solution 1 [id number] 111 Taking 12/20 00:00 :00 NovoLOG 100 UNIT/ML Solution 1 [id number] 111 Taking 05/26 00:00 :00 NovoLOG 100 UNIT/ML Solution 1 [id number] 111 Taking 03/31 00:00 :00 oxyCODONE HCl 1 Taking 03/01 00:00 :00 oxyCODONE HCl 1 Taking 02/01 00:00 :00 oxyCODONE HCl 1 Taking 01/25 00:00 :00 oxyCODONE HCl 1 Taking 12/20 00:00 :00 oxyCODONE HCl 1 Taking 12/20 00:00 :00 oxyCODONE HCl 1 Taking 05/26 00:00 :00 oxyCODONE HCl 1 Taking 03/31 00:00 :00 Pantoprazol e Sodium 40 MG Tablet Delayed Release 03/23/2024 00:00:00 1 [id number] 8 910 P Taking 03/01 00:00 :00 Pantoprazol e Sodium 40 MG Tablet Delayed Release 03/23/2024 00:00:00 1 [id number] 8 910 P Taking 02/01 00:00 :00 Pantoprazol e Sodium 40 MG Tablet Delayed Release 03/23/2024 00:00:00 1 9710899 8 910 P Taking 01/25 00:00 :00 Pantoprazol e Sodium 40 MG Tablet Delayed Release 03/23/2024 00:00:00 1 4554066 8 910 P Taking 12/20 00:00 :00 Pantoprazol e Sodium 40 MG Tablet Delayed Release 03/23/2024 00:00:00 1 [id number] 8 910 P Taking 12/20 00:00 :00 Pantoprazol e Sodium 40 MG Tablet Delayed Release 03/23/2024 00:00:00 1 [id number] 8 910 P Taking 05/26 00:00 :00 Pantoprazol e Sodium 40 MG Tablet Delayed Release 03/23/2024 00:00:00 1 5320753 8 910 P Taking 03/31 00:00 :00 Potassium Chloride ER 10 MEQ Tablet Extended Release 1 [id number] 105 Taking 03/01 00:00 :00 Potassium Chloride ER 10 MEQ Tablet Extended Release 1 [id number] 105 Taking 02/01 00:00 :00 Potassium Chloride ER 10 MEQ Tablet Extended Release 1 [id number] 105 Taking 01/25 00:00 :00 Potassium Chloride ER 10 MEQ Tablet Extended Release 1 [id number] 105 Taking 12/20 00:00 :00 Potassium Chloride ER 10 MEQ Tablet Extended Release 1 [id number] 105 Taking 12/20 00:00 :00 Potassium Chloride ER 10 MEQ Tablet Extended Release 1 [id number] 105 Taking 05/26 00:00 :00 Potassium Chloride ER 10 MEQ Tablet Extended Release 1 [id number] 105 Taking 03/31 00:00 :00 rivaroxaban 20 MG Oral Tablet [Xarelto] 07/23/2023 00:00:00 1 0 Taking 03/01 00:00 :00 rivaroxaban 20 MG Oral Tablet [Xarelto] 07/23/2023 00:00:00 1 0 Taking 02/01 00:00 :00 rivaroxaban 20 MG Oral Tablet [Xarelto] 07/23/2023 00:00:00 1 0 Taking 01/25 00:00 :00 rivaroxaban 20 MG Oral Tablet [Xarelto] 07/23/2023 00:00:00 1 0 Taking 12/20 00:00 :00 rivaroxaban 20 MG Oral Tablet [Xarelto] 07/23/2023 00:00:00 1 0 Taking 12/20 00:00 :00 rivaroxaban 20 MG Oral Tablet [Xarelto] 07/23/2023 00:00:00 0 0 My [facility] 05/26 00:00 :00 rivaroxaban 20 MG Oral Tablet [Xarelto] 07/23/2023 00:00:00 0 0 My [facility] 03/31 00:00 :00 Rosuvastati n Calcium 40 MG Oral Tablet 07/23/2023 00:00:00 1 0 Taking 03/01 00:00 :00 Rosuvastati n Calcium 40 MG Oral Tablet 07/23/2023 00:00:00 1 0 Taking 02/01 00:00 :00 Rosuvastati n Calcium 40 MG Oral Tablet 07/23/2023 00:00:00 1 0 Taking 01/25 00:00 :00 Rosuvastati n Calcium 40 MG Oral Tablet 07/23/2023 00:00:00 1 0 Taking 12/20 00:00 :00 Rosuvastati n Calcium 40 MG Oral Tablet 07/23/2023 00:00:00 1 0 Taking 12/20 00:00 :00 Rosuvastati n Calcium 40 MG Oral Tablet 07/23/2023 00:00:00 1 0 Taking 05/26 00:00 :00 Rosuvastati n Calcium 40 MG Oral Tablet 07/23/2023 00:00:00 1 0 Taking 03/31 00:00 :00 Tamsulosin HCl 0.4 MG Capsule 1 85400 207 601 Taking 03/31 00:00 :00 Tamsulosin HCl 0.4 MG Capsule 07/23/2023 00:00:00 0 0 [id number] 2 510 Not Taking 03/01 00:00 :00 Tamsulosin HCl 0.4 MG Capsule 1 15906 207 601 Taking 03/01 00:00 :00 Tamsulosin HCl 0.4 MG Capsule 07/23/2023 00:00:00 0 0 [id number] 2 510 Not Taking 02/01 00:00 :00 Tamsulosin HCl 0.4 MG Capsule 1 17483 207 601 Taking 02/01 00:00 :00 Tamsulosin HCl 0.4 MG Capsule 07/23/2023 00:00:00 0 0 [id number] 2 510 Not Taking 01/25 00:00 :00 Tamsulosin HCl 0.4 MG Capsule 1 14846 207 601 Taking 01/25 00:00 :00 Tamsulosin HCl 0.4 MG Capsule 07/23/2023 00:00:00 0 0 [id number] 2 510 Not Taking 12/20 00:00 :00 Tamsulosin HCl 0.4 MG Capsule 1 04207 207 601 Taking 12/20 00:00 :00 Tamsulosin HCl 0.4 MG Capsule 07/23/2023 00:00:00 0 0 [id number] 2 510 Not Taking 12/20 00:00 :00 Tamsulosin HCl 0.4 MG Capsule 1 95584 207 601 Taking 12/20 00:00 :00 Tamsulosin HCl 0.4 MG Capsule 07/23/2023 00:00:00 0 0 [id number] 2 510 Not Taking 05/26 00:00 :00 Tamsulosin HCl 0.4 MG Capsule 1 47165 207 601 Taking 05/26 00:00 :00 Tamsulosin HCl 0.4 MG Capsule 07/23/2023 00:00:00 0 0 [id number] 2 510 Not Taking 03/31 00:00 :00 traMADol HCl 50 MG Tablet 03/23/2024 00:00:00 0 [id number] 0 101 P Not Taking 03/01 00:00 :00 traMADol HCl 50 MG Tablet 03/23/2024 00:00:00 0 [id number] 0 101 P Not Taking 02/01 00:00 :00 traMADol HCl 50 MG Tablet 03/23/2024 00:00:00 0 [id number] 0 101 P Not Taking 01/25 00:00 :00 traMADol HCl 50 MG Tablet 03/23/2024 00:00:00 0 [id number] 0 101 P Not Taking 12/20 00:00 :00 traMADol HCl 50 MG Tablet 03/23/2024 00:00:00 0 [id number] 0 101 P Not Taking 12/20 00:00 :00 traMADol HCl 50 MG Tablet 03/23/2024 00:00:00 0 [id number] 0 101 P Not Taking 05/26 00:00 :00 traMADol HCl 50 MG Tablet 03/23/2024 00:00:00 0 [id number] 0 101 P Not Taking 03/31 00:00 :00 Tylenol 325 MG Tablet 03/23/2024 00:00:00 1 [id number] 5 810 P Taking 03/01 00:00 :00 Tylenol 325 MG Tablet 03/23/2024 00:00:00 1 [id number] 5 810 P Taking 02/01 00:00 :00 Tylenol 325 MG Tablet 03/23/2024 00:00:00 1 [id number] 5 810 P Taking 01/25 00:00 :00 Tylenol 325 MG Tablet 03/23/2024 00:00:00 1 [id number] 5 810 P Taking 12/20 00:00 :00 Tylenol 325 MG Tablet 03/23/2024 00:00:00 1 [id number] 5 810 P Taking 12/20 00:00 :00 Tylenol 325 MG Tablet 03/23/2024 00:00:00 1 [id number] 5 810 P Taking 05/26 00:00 :00 Tylenol 325 MG Tablet 03/23/2024 00:00:00 1 [id number] 5 810 P Taking 03/31 00:00 :00 ubidecareno ne 30 MG Oral Capsule 07/23/2023 00:00:00 0 0 Not Yao maldonado 03/01 00:00 :00 ubidecareno ne 30 MG Oral Capsule 07/23/2023 00:00:00 0 0 My maldonado 02/01 00:00 :00 ubidecareno ne 30 MG Oral Capsule 07/23/2023 00:00:00 0 0 My maldonado 01/25 00:00 :00 ubidecareno ne 30 MG Oral Capsule 07/23/2023 00:00:00 0 0 My maldonado 12/20 00:00 :00 ubidecareno ne 30 MG Oral Capsule 07/23/2023 00:00:00 0 0 My maldonado 12/20 00:00 :00 ubidecareno ne 30 MG Oral Capsule 07/23/2023 00:00:00 0 0 My maldonado 05/26 00:00 :00 ubidecareno ne 30 MG Oral Capsule 07/23/2023 00:00:00 0 0 My maldonado 03/31 00:00 :00 vitamin B12 1 MG Sublingual Tablet 07/23/2023 00:00:00 0 0 Not Yao maldonado 03/01 00:00 :00 vitamin B12 1 MG Sublingual Tablet 07/23/2023 00:00:00 0 0 My maldonado 02/01 00:00 :00 vitamin B12 1 MG Sublingual Tablet 07/23/2023 00:00:00 0 0 My maldonado 01/25 00:00 :00 vitamin B12 1 MG Sublingual Tablet 07/23/2023 00:00:00 0 0 My maldonado 12/20 00:00 :00 vitamin B12 1 MG Sublingual Tablet 07/23/2023 00:00:00 0 0 My maldonado 12/20 00:00 :00 vitamin B12 1 MG Sublingual Tablet 07/23/2023 00:00:00 0 0 My maldonado 05/26 00:00 :00 vitamin B12 1 MG Sublingual Tablet 07/23/2023 00:00:00 0 0 My maldonado
--- OUTSIDE RECORDS SUMMARY | 2025-04-10 15:17 | XMS_ITS | Continuity of Care Document ---
Author Organization [employer] ([facility]) Address [address] [place] [id number] Insurance Providers Payer Plan Claims Address Claims Phone Policy Number Group Number Relation Employer Guarantor Name Guarantor Guarantor Address Guarantor Phone [id number] [employer] [address] [address], [place] [address] tel:[phone] Self Raphael Deal [address] [place] [phone] [employer]ICA RE [address], [place] [address] [id number] Self Raphael Deal [address] [place] [phone] [email or web address] [address] [address] tel:[phone] Self Raphael Deal [address] [place] [phone] Problems Condition ICD9 code ICD10 code SNOMED [...] low back pain M54.59 07/08/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 Z79.84 [...] / Unit Interpretation Reference Ran ge Blood chemistry[[id number]] Glucose [Mass/volume] in Ser um or Plasma [2345-7] 273 mg/dL N Blood chemistry[[id number]] Glucose [Mass/volume] in Ser um or Plasma [2345-7] 204 mg/dL N Blood chemistry[[id number]] Glucose [Mass/volume] in Ser um or Plasma [2345-7] 260 mg/dL N Blood chemistry[[id number]] Glucose [Mass/volume] in Ser um or Plasma [2345-7] 220 mg/dL N Blood chemistry[] Glucose [Mass/volume] in Ser um or Plasma [2345-7] 253 mg/dL N Blood chemistry[] Glucose [Mass/volume] in Ser um or Plasma [2345-7] 174 mg/dL N Blood chemistry[] Glucose [Mass/volume] in Ser um or Plasma [2345-7] 229 mg/dL N Blood chemistry[] Glucose [Mass/volume] in Ser um or Plasma [2345-7] 229 mg/dL N Blood chemistry[] Glucose [Mass/volume] in Ser um or Plasma [2345-7] 227 mg/dL N Blood chemistry[] Glucose [Mass/volume] in Ser um or Plasma [2345-7] 372 mg/dL N Blood chemistry[] Glucose [Mass/volume] in Ser um or Plasma [2345-7] 280 mg/dL N Blood chemistry[] Glucose [Mass/volume] in Ser um or Plasma [2345-7] 239 mg/dL N Blood chemistry[] Glucose [Mass/volume] in Ser um or Plasma [2345-7] 252 mg/dL N Blood chemistry[] Glucose [Mass/volume] in Ser um or Plasma [2345-7] 340 mg/dL N Blood chemistry[] Glucose [Mass/volume] in Ser um or Plasma [2345-7] 304 mg/dL N Blood chemistry[] Glucose [Mass/volume] in Ser um or Plasma [2345-7] 375 mg/dL N Blood chemistry[] Glucose [Mass/volume] in Ser um or Plasma [2345-7] 302 mg/dL N Blood chemistry[[id number]] Glucose [Mass/volume] in Ser um or Plasma [2345-7] 264 mg/dL N Blood chemistry[] Glucose [Mass/volume] in Ser um or Plasma [2345-7] 217 mg/dL N Blood chemistry[] Glucose [Mass/volume] in Ser um or Plasma [2345-7] 363 mg/dL N Blood chemistry[] Glucose [Mass/volume] in Ser um or Plasma [2345-7] 252 mg/dL N Blood chemistry[] Glucose [Mass/volume] in Ser um or Plasma [2345-7] 325 mg/dL N Blood chemistry[] Glucose [Mass/volume] in Ser um or Plasma [2345-7] 249 mg/dL N Blood chemistry[] Glucose [Mass/volume] in Ser um or Plasma [2345-7] 227 mg/dL N Blood chemistry[] Glucose [Mass/volume] in Ser um or Plasma [2345-7] 217 mg/dL N Blood chemistry[] Glucose [Mass/volume] in Ser um or Plasma [2345-7] 267 mg/dL N Blood chemistry[] Glucose [Mass/volume] in Ser um or Plasma [2345-7] 200 mg/dL N Blood chemistry[] Glucose [Mass/volume] in Ser um or Plasma [2345-7] 266 mg/dL N Blood chemistry[] Glucose [Mass/volume] in Ser um or Plasma [2345-7] 180 mg/dL N Blood chemistry[] Glucose [Mass/volume] in Ser um or Plasma [2345-7] 252 mg/dL N Blood chemistry[] Glucose [Mass/volume] in Ser um or Plasma [2345-7] 251 mg/dL N Blood chemistry[] Glucose [Mass/volume] in Ser um or Plasma [2345-7] 222 mg/dL N Blood chemistry[] Glucose [Mass/volume] in Ser um or Plasma [2345-7] 230 mg/dL N Blood chemistry[] Glucose [Mass/volume] in Ser um or Plasma [2345-7] 265 mg/dL N Blood chemistry[[id number]] Glucose [Mass/volume] in Ser um or Plasma [2345-7] 251 mg/dL N Blood chemistry[] Glucose [Mass/volume] in Ser um or Plasma [2345-7] 230 mg/dL N Blood chemistry[] Glucose [Mass/volume] in Ser um or Plasma [2345-7] 191 mg/dL N Blood chemistry[] Glucose [Mass/volume] in Ser um or Plasma [2345-7] 182 mg/dL N Blood chemistry[] Glucose [Mass/volume] in Ser um or Plasma [2345-7] 180 mg/dL N Blood chemistry[] Glucose [Mass/volume] in Ser um or Plasma [2345-7] 295 mg/dL N Blood chemistry[] Glucose [Mass/volume] in Ser um or Plasma [2345-7] 193 mg/dL N Blood chemistry[] Glucose [Mass/volume] in Ser um or Plasma [2345-7] 233 mg/dL N Blood chemistry[] Glucose [Mass/volume] in Ser um or Plasma [2345-7] 291 mg/dL N Blood chemistry[] Glucose [Mass/volume] in Ser um or Plasma [2345-7] 177 mg/dL N Blood chemistry[] Glucose [Mass/volume] in Ser um or Plasma [2345-7] 190 mg/dL N Blood chemistry[] Glucose [Mass/volume] in Ser um or Plasma [2345-7] 200 mg/dL N Blood chemistry[] Glucose [Mass/volume] in Ser um or Plasma [2345-7] 223 mg/dL N Blood chemistry[] Glucose [Mass/volume] in Ser um or Plasma [2345-7] 351 mg/dL N Blood chemistry[] Glucose [Mass/volume] in Ser um or Plasma [2345-7] 251 mg/dL N Blood chemistry[] Glucose [Mass/volume] in Ser um or Plasma [2345-7] 285 mg/dL N Blood chemistry[] Glucose [Mass/volume] in Ser um or Plasma [2345-7] 298 mg/dL N Blood chemistry[] Glucose [Mass/volume] in Ser um or Plasma [2345-7] 296 mg/dL N Blood chemistry[] Glucose [Mass/volume] in Ser um or Plasma [2345-7] 107 mg/dL N Blood chemistry[] Glucose [Mass/volume] in Ser um or Plasma [2345-7] 273 mg/dL N Blood chemistry[] Glucose [Mass/volume] in Ser um or Plasma [2345-7] 327 mg/dL N Blood chemistry[] Glucose [Mass/volume] in Ser um or Plasma [2345-7] 176 mg/dL N Blood chemistry[] Glucose [Mass/volume] in Ser um or Plasma [2345-7] 278 mg/dL N Blood chemistry[] Glucose [Mass/volume] in Ser um or Plasma [2345-7] 199 mg/dL N Blood chemistry[] Glucose [Mass/volume] in Ser um or Plasma [2345-7] 253 mg/dL N Blood chemistry[] Glucose [Mass/volume] in Ser um or Plasma [2345-7] 241 mg/dL N Blood chemistry[] Glucose [Mass/volume] in Ser um or Plasma [2345-7] 258 mg/dL N Blood chemistry[] Glucose [Mass/volume] in Ser um or Plasma [2345-7] 169 mg/dL N Blood chemistry[] Glucose [Mass/volume] in Ser um or Plasma [2345-7] 223 mg/dL N Blood chemistry[] Glucose [Mass/volume] in Ser um or Plasma [2345-7] 227 mg/dL N Blood chemistry[] Glucose [Mass/volume] in Ser um or Plasma [2345-7] 263 mg/dL N Blood chemistry[] Glucose [Mass/volume] in Ser um or Plasma [2345-7] 239 mg/dL N Blood chemistry[] Glucose [Mass/volume] in Ser um or Plasma [2345-7] 276 mg/dL N Blood chemistry[] Glucose [Mass/volume] in Ser um or Plasma [2345-7] 214 mg/dL N Blood chemistry[] Glucose [Mass/volume] in Ser um or Plasma [2345-7] 313 mg/dL N Blood chemistry[] Glucose [Mass/volume] in Ser um or Plasma [2345-7] 256 mg/dL N Blood chemistry[] Glucose [Mass/volume] in Ser um or Plasma [2345-7] 86 mg/dL N Blood chemistry[] Glucose [Mass/volume] in Ser um or Plasma [2345-7] 181 mg/dL N Blood chemistry[] Glucose [Mass/volume] in Ser um or Plasma [2345-7] 205 mg/dL N Blood chemistry[] Glucose [Mass/volume] in Ser um or Plasma [2345-7] 204 mg/dL N Blood chemistry[] Glucose [Mass/volume] in Ser um or Plasma [2345-7] 210 mg/dL N Blood chemistry[] Glucose [Mass/volume] in Ser um or Plasma [2345-7] 176 mg/dL N Blood chemistry[] Glucose [Mass/volume] in Ser um or Plasma [2345-7] 180 mg/dL N Blood chemistry[] Glucose [Mass/volume] in Ser um or Plasma [2345-7] 252 mg/dL N Blood chemistry[] Glucose [Mass/volume] in Ser um or Plasma [2345-7] 249 mg/dL N Blood chemistry[] Glucose [Mass/volume] in Ser um or Plasma [2345-7] 224 mg/dL N Blood chemistry[] Glucose [Mass/volume] in Ser um or Plasma [2345-7] 245 mg/dL N Blood chemistry[] Glucose [Mass/volume] in Ser um or Plasma [2345-7] 285 mg/dL N Blood chemistry[] Glucose [Mass/volume] in Ser um or Plasma [2345-7] 240 mg/dL N Blood chemistry[[id number]] Glucose [Mass/volume] in Ser um or Plasma [2345-7] 318 mg/dL N Blood chemistry[[id number]] Glucose [Mass/volume] in Ser um or Plasma [2345-7] 234 mg/dL N Blood chemistry[] Glucose [Mass/volume] in Ser um or Plasma [2345-7] 344 mg/dL N Blood chemistry[[id number]] Glucose [Mass/volume] in Ser um or Plasma [2345-7] 245 mg/dL N Blood chemistry[] Glucose [Mass/volume] in Ser um or Plasma [2345-7] 241 mg/dL N Blood chemistry[] Glucose [Mass/volume] in Ser um or Plasma [2345-7] 216 mg/dL N Blood chemistry[] Glucose [Mass/volume] in Ser um or Plasma [2345-7] 228 mg/dL N Blood chemistry[] Glucose [Mass/volume] in Ser um or Plasma [2345-7] 225 mg/dL N Blood chemistry[] Glucose [Mass/volume] in Ser um or Plasma [2345-7] 210 mg/dL N Blood chemistry[] Glucose [Mass/volume] in Ser um or Plasma [2345-7] 253 mg/dL N Blood chemistry[] Glucose [Mass/volume] in Ser um or Plasma [2345-7] 268 mg/dL N Blood chemistry[] Glucose [Mass/volume] in Ser um or Plasma [2345-7] 204 mg/dL N Blood chemistry[] Glucose [Mass/volume] in Ser um or Plasma [2345-7] 237 mg/dL N Blood chemistry[] Glucose [Mass/volume] in Ser um or Plasma [2345-7] 265 mg/dL N Blood chemistry[] Glucose [Mass/volume] in Ser um or Plasma [2345-7] 199 mg/dL N Blood chemistry[] Glucose [Mass/volume] in Ser um or Plasma [2345-7] 228 mg/dL N Blood chemistry[] Glucose [Mass/volume] in Ser um or Plasma [2345-7] 287 mg/dL N Blood chemistry[] Glucose [Mass/volume] in Ser um or Plasma [2345-7] 224 mg/dL N Blood chemistry[] Glucose [Mass/volume] in Ser um or Plasma [2345-7] 244 mg/dL N Blood chemistry[] Glucose [Mass/volume] in Ser um or Plasma [2345-7] 297 mg/dL N Blood chemistry[] Glucose [Mass/volume] in Ser um or Plasma [2345-7] 178 mg/dL N Blood chemistry[[id number]] Glucose [Mass/volume] in Ser um or Plasma [2345-7] 244 mg/dL N Blood chemistry[] Glucose [Mass/volume] in Ser um or Plasma [2345-7] 149 mg/dL N Blood chemistry[] Glucose [Mass/volume] in Ser um or Plasma [2345-7] 210 mg/dL N Blood chemistry[] Glucose [Mass/volume] in Ser um or Plasma [2345-7] 150 mg/dL N Blood chemistry[] Glucose [Mass/volume] in Ser um or Plasma [2345-7] 267 mg/dL N Blood chemistry[] Glucose [Mass/volume] in Ser um or Plasma [2345-7] 94 mg/dL N Blood chemistry[] Glucose [Mass/volume] in Ser um or Plasma [2345-7] 165 mg/dL N Blood chemistry[] Glucose [Mass/volume] in Ser um or Plasma [2345-7] 267 mg/dL N Blood chemistry[[id number]] Glucose [Mass/volume] in Ser um or Plasma [2345-7] 158 mg/dL N Blood chemistry[[id number]] Glucose [Mass/volume] in Ser um or Plasma [2345-7] 266 mg/dL N Blood chemistry[[id number]] Glucose [Mass/volume] in Ser um or Plasma [2345-7] 321 mg/dL N Blood chemistry[] Glucose [Mass/volume] in Ser um or Plasma [2345-7] 261 mg/dL N Blood chemistry[[id number]] Glucose [Mass/volume] in Ser um or Plasma [2345-7] 144 mg/dL N Blood chemistry[[id number]] Glucose [Mass/volume] in Ser um or Plasma [2345-7] 220 mg/dL N Blood chemistry[] Glucose [Mass/volume] in Ser um or Plasma [2345-7] 264 mg/dL N Blood chemistry[[id number]] Glucose [Mass/volume] in Ser um or Plasma [2345-7] 255 mg/dL N Blood chemistry[] Glucose [Mass/volume] in Ser um or Plasma [2345-7] 192 mg/dL N Blood chemistry[] Glucose [Mass/volume] in Ser um or Plasma [2345-7] 218 mg/dL N Blood chemistry[] Glucose [Mass/volume] in Ser um or Plasma [2345-7] 227 mg/dL N Glucose [Mass/volume] in Ser um or Plasma [2345-7] 178 mg/dL N Blood chemistry[] Glucose [Mass/volume] in Ser um or Plasma [2345-7] 267 mg/dL N Blood chemistry[] Glucose [Mass/volume] in Ser um or Plasma [2345-7] 216 mg/dL N Blood chemistry[] Glucose [Mass/volume] in Ser um or Plasma [2345-7] 166 mg/dL N Blood chemistry[] Glucose [Mass/volume] in Ser um or Plasma [2345-7] 197 mg/dL N Blood chemistry[] Glucose [Mass/volume] in Ser um or Plasma [2345-7] 229 mg/dL N Blood chemistry[] Glucose [Mass/volume] in Ser um or Plasma [2345-7] 223 mg/dL N Blood chemistry[[id number]] Glucose [Mass/volume] in Ser um or Plasma [2345-7] 221 mg/dL N Blood chemistry[] Glucose [Mass/volume] in Ser um or Plasma [2345-7] 202 mg/dL N Blood chemistry[] Glucose [Mass/volume] in Ser um or Plasma [2345-7] 289 mg/dL N Blood chemistry[[id number]] Glucose [Mass/volume] in Ser um or Plasma [2345-7] 87 mg/dL N Blood chemistry[[id number]] Glucose [Mass/volume] in Ser um or Plasma [2345-7] 176 mg/dL N Blood chemistry[] Glucose [Mass/volume] in Ser um or Plasma [2345-7] 270 mg/dL N Blood chemistry[[id number]] Glucose [Mass/volume] in Ser um or Plasma [2345-7] 229 mg/dL N Blood chemistry[[id number]] Glucose [Mass/volume] in Ser um or Plasma [2345-7] 164 mg/dL N Blood chemistry[] Glucose [Mass/volume] in Ser um or Plasma [2345-7] 257 mg/dL N Blood chemistry[] Glucose [Mass/volume] in Ser um or Plasma [2345-7] 245 mg/dL N Blood chemistry[] Glucose [Mass/volume] in Ser um or Plasma [2345-7] 235 mg/dL N Blood chemistry[] Glucose [Mass/volume] in Ser um or Plasma [2345-7] 287 mg/dL N Blood chemistry[] Glucose [Mass/volume] in Ser um or Plasma [2345-7] 286 mg/dL N Glucose [Mass/volume] in Ser um or Plasma [2345-7] 286 mg/dL N Blood chemistry[] Glucose [Mass/volume] in Ser um or Plasma [2345-7] 250 mg/dL N Blood chemistry[] Glucose [Mass/volume] in Ser um or Plasma [2345-7] 312 mg/dL N Blood chemistry[] Glucose [Mass/volume] in Ser um or Plasma [2345-7] 190 mg/dL N Blood chemistry[] Glucose [Mass/volume] in Ser um or Plasma [2345-7] 210 mg/dL N Blood chemistry[] Glucose [Mass/volume] in Ser um or Plasma [2345-7] 293 mg/dL N Blood chemistry[] Glucose [Mass/volume] in Ser um or Plasma [2345-7] 339 mg/dL N Blood chemistry[] Glucose [Mass/volume] in Ser um or Plasma [2345-7] 252 mg/dL N Blood chemistry[] Glucose [Mass/volume] in Ser um or Plasma [2345-7] 295 mg/dL N Blood chemistry[] Glucose [Mass/volume] in Ser um or Plasma [2345-7] 301 mg/dL N Blood chemistry[] Glucose [Mass/volume] in Ser um or Plasma [2345-7] 343 mg/dL N Blood chemistry[] Glucose [Mass/volume] in Ser um or Plasma [2345-7] 252 mg/dL N Blood chemistry[] Glucose [Mass/volume] in Ser um or Plasma [2345-7] 300 mg/dL N Blood chemistry[] Glucose [Mass/volume] in Ser um or Plasma [2345-7] 300 mg/dL N Blood chemistry[] Glucose [Mass/volume] in Ser um or Plasma [2345-7] 399 mg/dL N Blood chemistry[] Glucose [Mass/volume] in Ser um or Plasma [2345-7] 255 mg/dL N Blood chemistry[] Glucose [Mass/volume] in Ser um or Plasma [2345-7] 275 mg/dL N Blood chemistry[] Glucose [Mass/volume] in Ser um or Plasma [2345-7] 340 mg/dL N Blood chemistry[] Glucose [Mass/volume] in Ser um or Plasma [2345-7] 292 mg/dL N Blood chemistry[] Glucose [Mass/volume] in Ser um or Plasma [2345-7] 292 mg/dL N Blood chemistry[] Glucose [Mass/volume] in Ser um or Plasma [2345-7] 328 mg/dL N Blood chemistry[] Glucose [Mass/volume] in Ser um or Plasma [2345-7] 227 mg/dL N Blood chemistry[] Glucose [Mass/volume] in Ser um or Plasma [2345-7] 287 mg/dL N Blood chemistry[] Glucose [Mass/volume] in Ser um or Plasma [2345-7] 199 mg/dL N Blood chemistry[] Glucose [Mass/volume] in Ser um or Plasma [2345-7] 286 mg/dL N Blood chemistry[] Glucose [Mass/volume] in Ser um or Plasma [2345-7] 254 mg/dL N Blood chemistry[] Glucose [Mass/volume] in Ser um or Plasma [2345-7] 220 mg/dL N Blood chemistry[] Glucose [Mass/volume] in Ser um or Plasma [2345-7] 320 mg/dL N Blood chemistry[] Glucose [Mass/volume] in Ser um or Plasma [2345-7] 299 mg/dL N Blood chemistry[] Glucose [Mass/volume] in Ser um or Plasma [2345-7] 174 mg/dL N Blood chemistry[] Glucose [Mass/volume] in Ser um or Plasma [2345-7] 257 mg/dL N Blood chemistry[] Glucose [Mass/volume] in Ser um or Plasma [2345-7] 233 mg/dL N Blood chemistry[] Glucose [Mass/volume] in Ser um or Plasma [2345-7] 267 mg/dL N Blood chemistry[] Glucose [Mass/volume] in Ser um or Plasma [2345-7] 293 mg/dL N Blood chemistry[] Glucose [Mass/volume] in Ser um or Plasma [2345-7] 263 mg/dL N Blood chemistry[] Glucose [Mass/volume] in Ser um or Plasma [2345-7] 246 mg/dL N Blood chemistry[] Glucose [Mass/volume] in Ser um or Plasma [2345-7] 242 mg/dL N Glucose [Mass/volume] in Ser um or Plasma [2345-7] 242 mg/dL N Blood chemistry[] Glucose [Mass/volume] in Ser um or Plasma [2345-7] 335 mg/dL N Blood chemistry[] Glucose [Mass/volume] in Ser um or Plasma [2345-7] 333 mg/dL N Blood chemistry[] Glucose [Mass/volume] in Ser um or Plasma [2345-7] 239 mg/dL N Blood chemistry[] Glucose [Mass/volume] in Ser um or Plasma [2345-7] 226 mg/dL N Blood chemistry[] Glucose [Mass/volume] in Ser um or Plasma [2345-7] 239 mg/dL N Blood chemistry[] Glucose [Mass/volume] in Ser um or Plasma [2345-7] 306 mg/dL N Blood chemistry[] Glucose [Mass/volume] in Ser um or Plasma [2345-7] 292 mg/dL N Blood chemistry[] Glucose [Mass/volume] in Ser um or Plasma [2345-7] 309 mg/dL N Blood chemistry[] Glucose [Mass/volume] in Ser um or Plasma [2345-7] 271 mg/dL N Blood chemistry[] Glucose [Mass/volume] in Ser um or Plasma [2345-7] 216 mg/dL N Blood chemistry[] Glucose [Mass/volume] in Ser um or Plasma [2345-7] 279 mg/dL N Blood chemistry[] Glucose [Mass/volume] in Ser um or Plasma [2345-7] 294 mg/dL N Blood chemistry[] Glucose [Mass/volume] in Ser um or Plasma [2345-7] 170 mg/dL N Blood chemistry[] Glucose [Mass/volume] in Ser um or Plasma [2345-7] 207 mg/dL N Blood chemistry[] Glucose [Mass/volume] in Ser um or Plasma [2345-7] 333 mg/dL N Blood chemistry[] Glucose [Mass/volume] in Ser um or Plasma [2345-7] 218 mg/dL N Blood chemistry[] Glucose [Mass/volume] in Ser um or Plasma [2345-7] 263 mg/dL N Blood chemistry[] Glucose [Mass/volume] in Ser um or Plasma [2345-7] 263 mg/dL N Blood chemistry[] Glucose [Mass/volume] in Ser um or Plasma [2345-7] 262 mg/dL N Blood chemistry[] Glucose [Mass/volume] in Ser um or Plasma [2345-7] 300 mg/dL N Blood chemistry[] Glucose [Mass/volume] in Ser um or Plasma [2345-7] 300 mg/dL N Blood chemistry[] Glucose [Mass/volume] in Ser um or Plasma [2345-7] 352 mg/dL N Blood chemistry[] Glucose [Mass/volume] in Ser um or Plasma [2345-7] 171 mg/dL N Blood chemistry[] Glucose [Mass/volume] in Ser um or Plasma [2345-7] 220 mg/dL N Blood chemistry[] Glucose [Mass/volume] in Ser um or Plasma [2345-7] 284 mg/dL N Blood chemistry[] Glucose [Mass/volume] in Ser um or Plasma [2345-7] 228 mg/dL N Blood chemistry[] Glucose [Mass/volume] in Ser um or Plasma [2345-7] 228 mg/dL N Blood chemistry[] Glucose [Mass/volume] in Ser um or Plasma [2345-7] 240 mg/dL N Blood chemistry[] Glucose [Mass/volume] in Ser um or Plasma [2345-7] 154 mg/dL N Blood chemistry[] Glucose [Mass/volume] in Ser um or Plasma [2345-7] 246 mg/dL N Blood chemistry[] Glucose [Mass/volume] in Ser um or Plasma [2345-7] 260 mg/dL N Blood chemistry[] Glucose [Mass/volume] in Ser um or Plasma [2345-7] 252 mg/dL N Blood chemistry[] Glucose [Mass/volume] in Ser um or Plasma [2345-7] 99 mg/dL N Blood chemistry[] Glucose [Mass/volume] in Ser um or Plasma [2345-7] 99 mg/dL N Blood chemistry[] Glucose [Mass/volume] in Ser um or Plasma [2345-7] 293 mg/dL N Blood chemistry[] Glucose [Mass/volume] in Ser um or Plasma [2345-7] 240 mg/dL N Blood chemistry[] Glucose [Mass/volume] in Ser um or Plasma [2345-7] 203 mg/dL N Blood chemistry[] Glucose [Mass/volume] in Ser um or Plasma [2345-7] 193 mg/dL N Blood chemistry[] Glucose [Mass/volume] in Ser um or Plasma [2345-7] 193 mg/dL N Blood chemistry[] Glucose [Mass/volume] in Ser um or Plasma [2345-7] 220 mg/dL N Blood chemistry[] Glucose [Mass/volume] in Ser um or Plasma [2345-7] 164 mg/dL N Blood chemistry[] Glucose [Mass/volume] in Ser um or Plasma [2345-7] 235 mg/dL N Blood chemistry[] Glucose [Mass/volume] in Ser um or Plasma [2345-7] 183 mg/dL N Blood chemistry[] Glucose [Mass/volume] in Ser um or Plasma [2345-7] 297 mg/dL N Blood chemistry[] Glucose [Mass/volume] in Ser um or Plasma [2345-7] 221 mg/dL N Blood chemistry[] Glucose [Mass/volume] in Ser um or Plasma [2345-7] 213 mg/dL N Blood chemistry[] Glucose [Mass/volume] in Ser um or Plasma [2345-7] 212 mg/dL N Blood chemistry[] Glucose [Mass/volume] in Ser um or Plasma [2345-7] 177 mg/dL N Blood chemistry[] Glucose [Mass/volume] in Ser um or Plasma [2345-7] 234 mg/dL N Blood chemistry[] Glucose [Mass/volume] in Ser um or Plasma [2345-7] 183 mg/dL N Blood chemistry[] Glucose [Mass/volume] in Ser um or Plasma [2345-7] 186 mg/dL N Blood chemistry[] Glucose [Mass/volume] in Ser um or Plasma [2345-7] 309 mg/dL N Blood chemistry[] Glucose [Mass/volume] in Ser um or Plasma [2345-7] 158 mg/dL N Blood chemistry[] Glucose [Mass/volume] in Ser um or Plasma [2345-7] 441 mg/dL N Blood chemistry[] Glucose [Mass/volume] in Ser um or Plasma [2345-7] 324 mg/dL N Blood chemistry[] Glucose [Mass/volume] in Ser um or Plasma [2345-7] 313 mg/dL N Blood chemistry[] Glucose [Mass/volume] in Ser um or Plasma [2345-7] 180 mg/dL N Blood chemistry[] Glucose [Mass/volume] in Ser um or Plasma [2345-7] 174 mg/dL N Blood chemistry[] Glucose [Mass/volume] in Ser um or Plasma [2345-7] 191 mg/dL N Blood chemistry[] Glucose [Mass/volume] in Ser um or Plasma [2345-7] 237 mg/dL N Blood chemistry[] Glucose [Mass/volume] in Ser um or Plasma [2345-7] 237 mg/dL N Blood chemistry[] Glucose [Mass/volume] in Ser um or Plasma [2345-7] 308 mg/dL N Blood chemistry[] Glucose [Mass/volume] in Ser um or Plasma [2345-7] 199 mg/dL N Blood chemistry[] Glucose [Mass/volume] in Ser um or Plasma [2345-7] 199 mg/dL N Blood chemistry[] Glucose [Mass/volume] in Ser um or Plasma [2345-7] 288 mg/dL N Glucose [Mass/volume] in Ser um or Plasma [2345-7] 288 mg/dL N Blood chemistry[] Glucose [Mass/volume] in Ser um or Plasma [2345-7] 357 mg/dL N Blood chemistry[] Glucose [Mass/volume] in Ser um or Plasma [2345-7] 299 mg/dL N Blood chemistry[] Glucose [Mass/volume] in Ser um or Plasma [2345-7] 120 mg/dL N Blood chemistry[] Glucose [Mass/volume] in Ser um or Plasma [2345-7] 271 mg/dL N Blood chemistry[] Glucose [Mass/volume] in Ser um or Plasma [2345-7] 240 mg/dL N Blood chemistry[] Glucose [Mass/volume] in Ser um or Plasma [2345-7] 189 mg/dL N Blood chemistry[] Glucose [Mass/volume] in Ser um or Plasma [2345-7] 189 mg/dL N Blood chemistry[] Glucose [Mass/volume] in Ser um or Plasma [2345-7] 265 mg/dL N Blood chemistry[] Glucose [Mass/volume] in Ser um or Plasma [2345-7] 225 mg/dL N Blood chemistry[] Glucose [Mass/volume] in Ser um or Plasma [2345-7] 227 mg/dL N Blood chemistry[] Glucose [Mass/volume] in Ser um or Plasma [2345-7] 242 mg/dL N Blood chemistry[] Glucose [Mass/volume] in Ser um or Plasma [2345-7] 203 mg/dL N Blood chemistry[] Glucose [Mass/volume] in Ser um or Plasma [2345-7] 292 mg/dL N Blood chemistry[] Glucose [Mass/volume] in Ser um or Plasma [2345-7] 281 mg/dL N Blood chemistry[] Glucose [Mass/volume] in Ser um or Plasma [2345-7] 184 mg/dL N Blood chemistry[] Glucose [Mass/volume] in Ser um or Plasma [2345-7] 308 mg/dL N Blood chemistry[] Glucose [Mass/volume] in Ser um or Plasma [2345-7] 305 mg/dL N Blood chemistry[] Glucose [Mass/volume] in Ser um or Plasma [2345-7] 241 mg/dL N Blood chemistry[] Glucose [Mass/volume] in Ser um or Plasma [2345-7] 216 mg/dL N Blood chemistry[] Glucose [Mass/volume] in Ser um or Plasma [2345-7] 189 mg/dL N Blood chemistry[] Glucose [Mass/volume] in Ser um or Plasma [2345-7] 251 mg/dL N Blood chemistry[] Glucose [Mass/volume] in Ser um or Plasma [2345-7] 255 mg/dL N Blood chemistry[] Glucose [Mass/volume] in Ser um or Plasma [2345-7] 234 mg/dL N Blood chemistry[] Glucose [Mass/volume] in Ser um or Plasma [2345-7] 285 mg/dL N Blood chemistry[] Glucose [Mass/volume] in Ser um or Plasma [2345-7] 210 mg/dL N Blood chemistry[] Glucose [Mass/volume] in Ser um or Plasma [2345-7] 210 mg/dL N Blood chemistry[] Glucose [Mass/volume] in Ser um or Plasma [2345-7] 184 mg/dL N Glucose [Mass/volume] in Ser um or Plasma [2345-7] 184 mg/dL N Blood chemistry[] Glucose [Mass/volume] in Ser um or Plasma [2345-7] 300 mg/dL N Blood chemistry[] Glucose [Mass/volume] in Ser um or Plasma [2345-7] 299 mg/dL N Glucose [Mass/volume] in Ser um or Plasma [2345-7] 299 mg/dL N Blood chemistry[] Glucose [Mass/volume] in Ser um or Plasma [2345-7] 207 mg/dL N Glucose [Mass/volume] in Ser um or Plasma [2345-7] 203 mg/dL N Blood chemistry[] Glucose [Mass/volume] in Ser um or Plasma [2345-7] 207 mg/dL N Blood chemistry[] Glucose [Mass/volume] in Ser um or Plasma [2345-7] 141 mg/dL N Blood chemistry[] Glucose [Mass/volume] in Ser um or Plasma [2345-7] 222 mg/dL N Blood chemistry[] Glucose [Mass/volume] in Ser um or Plasma [2345-7] 169 mg/dL N Blood chemistry[] Glucose [Mass/volume] in Ser um or Plasma [2345-7] 176 mg/dL N Blood chemistry[] Glucose [Mass/volume] in Ser um or Plasma [2345-7] 249 mg/dL N Blood chemistry[] Glucose [Mass/volume] in Ser um or Plasma [2345-7] 154 mg/dL N Blood chemistry[] Glucose [Mass/volume] in Ser um or Plasma [2345-7] 240 mg/dL N Glucose [Mass/volume] in Ser um or Plasma [2345-7] 240 mg/dL N Blood chemistry[] Glucose [Mass/volume] in Ser um or Plasma [2345-7] 275 mg/dL N Blood chemistry[] Glucose [Mass/volume] in Ser um or Plasma [2345-7] 194 mg/dL N Blood chemistry[] Glucose [Mass/volume] in Ser um or Plasma [2345-7] 231 mg/dL N Glucose [Mass/volume] in Ser um or Plasma [2345-7] 231 mg/dL N Blood chemistry[] Glucose [Mass/volume] in Ser um or Plasma [2345-7] 239 mg/dL N Blood chemistry[] Glucose [Mass/volume] in Ser um or Plasma [2345-7] 234 mg/dL N Blood chemistry[] Glucose [Mass/volume] in Ser um or Plasma [2345-7] 228 mg/dL N Blood chemistry[] Glucose [Mass/volume] in Ser um or Plasma [2345-7] 178 mg/dL N Blood chemistry[] Glucose [Mass/volume] in Ser um or Plasma [2345-7] 219 mg/dL N Blood chemistry[] Glucose [Mass/volume] in Ser um or Plasma [2345-7] 180 mg/dL N Blood chemistry[] Glucose [Mass/volume] in Ser um or Plasma [2345-7] 300 mg/dL N Blood chemistry[] Glucose [Mass/volume] in Ser um or Plasma [2345-7] 170 mg/dL N Blood chemistry[] Glucose [Mass/volume] in Ser um or Plasma [2345-7] 274 mg/dL N Blood chemistry[] Glucose [Mass/volume] in Ser um or Plasma [2345-7] 273 mg/dL N Blood chemistry[] Glucose [Mass/volume] in Ser um or Plasma [2345-7] 227 mg/dL N Blood chemistry[] Glucose [Mass/volume] in Ser um or Plasma [2345-7] 194 mg/dL N Blood chemistry[] Glucose [Mass/volume] in Ser um or Plasma [2345-7] 275 mg/dL N Blood chemistry[] Glucose [Mass/volume] in Ser um or Plasma [2345-7] 275 mg/dL N Blood chemistry[] Glucose [Mass/volume] in Ser um or Plasma [2345-7] 214 mg/dL N Blood chemistry[] Glucose [Mass/volume] in Ser um or Plasma [2345-7] 232 mg/dL N Blood chemistry[] Glucose [Mass/volume] in Ser um or Plasma [2345-7] 272 mg/dL N Blood chemistry[] Glucose [Mass/volume] in Ser um or Plasma [2345-7] 199 mg/dL N Blood chemistry[] Glucose [Mass/volume] in Ser um or Plasma [2345-7] 225 mg/dL N Blood chemistry[] Glucose [Mass/volume] in Ser um or Plasma [2345-7] 218 mg/dL N Blood chemistry[] Glucose [Mass/volume] in Ser um or Plasma [2345-7] 204 mg/dL N Blood chemistry[] Glucose [Mass/volume] in Ser um or Plasma [2345-7] 277 mg/dL N Blood chemistry[] Glucose [Mass/volume] in Ser um or Plasma [2345-7] 280 mg/dL N Blood chemistry[] Glucose [Mass/volume] in Ser um or Plasma [2345-7] 220 mg/dL N Blood chemistry[] Glucose [Mass/volume] in Ser um or Plasma [2345-7] 277 mg/dL N Blood chemistry[] Glucose [Mass/volume] in Ser um or Plasma [2345-7] 197 mg/dL N Blood chemistry[] Glucose [Mass/volume] in Ser um or Plasma [2345-7] 199 mg/dL N Blood chemistry[] Glucose [Mass/volume] in Ser um or Plasma [2345-7] 199 mg/dL N Blood chemistry[] Glucose [Mass/volume] in Ser um or Plasma [2345-7] 231 mg/dL N Blood chemistry[] Glucose [Mass/volume] in Ser um or Plasma [2345-7] 145 mg/dL N Blood chemistry[] Glucose [Mass/volume] in Ser um or Plasma [2345-7] 201 mg/dL N Blood chemistry[] Glucose [Mass/volume] in Ser um or Plasma [2345-7] 216 mg/dL N Blood chemistry[] Glucose [Mass/volume] in Ser um or Plasma [2345-7] 0 mg/dL N Glucose [Mass/volume] in Ser um or Plasma [2345-7] 139 mg/dL N Blood chemistry[] Glucose [Mass/volume] in Ser um or Plasma [2345-7] 158 mg/dL N Blood chemistry[] Glucose [Mass/volume] in Ser um or Plasma [2345-7] 205 mg/dL N Glucose [Mass/volume] in Ser um or Plasma [2345-7] 205 mg/dL N Blood chemistry[] Glucose [Mass/volume] in Ser um or Plasma [2345-7] 275 mg/dL N Blood chemistry[] Glucose [Mass/volume] in Ser um or Plasma [2345-7] 156 mg/dL N Blood chemistry[] Glucose [Mass/volume] in Ser um or Plasma [2345-7] 156 mg/dL N Glucose [Mass/volume] in Ser um or Plasma [2345-7] 156 mg/dL N Blood chemistry[] Glucose [Mass/volume] in Ser um or Plasma [2345-7] 200 mg/dL N Blood chemistry[] Glucose [Mass/volume] in Ser um or Plasma [2345-7] 200 mg/dL N Blood chemistry[] Glucose [Mass/volume] in Ser um or Plasma [2345-7] 251 mg/dL N Blood chemistry[] Glucose [Mass/volume] in Ser um or Plasma [2345-7] 224 mg/dL N Blood chemistry[] Glucose [Mass/volume] in Ser um or Plasma [2345-7] 160 mg/dL N Blood chemistry[] Glucose [Mass/volume] in Ser um or Plasma [2345-7] 218 mg/dL N Blood chemistry[] Glucose [Mass/volume] in Ser um or Plasma [2345-7] 201 mg/dL N Blood chemistry[] Glucose [Mass/volume] in Ser um or Plasma [2345-7] 184 mg/dL N Blood chemistry[] Glucose [Mass/volume] in Ser um or Plasma [2345-7] 208 mg/dL N Blood chemistry[] Glucose [Mass/volume] in Ser um or Plasma [2345-7] 143 mg/dL N Blood chemistry[] Glucose [Mass/volume] in Ser um or Plasma [2345-7] 286 mg/dL N Blood chemistry[] Glucose [Mass/volume] in Ser um or Plasma [2345-7] 192 mg/dL N Glucose [Mass/volume] in Ser um or Plasma [2345-7] 192 mg/dL N Blood chemistry[] Glucose [Mass/volume] in Ser um or Plasma [2345-7] 155 mg/dL N Blood chemistry[] Glucose [Mass/volume] in Ser um or Plasma [2345-7] 185 mg/dL N Blood chemistry[] Glucose [Mass/volume] in Ser um or Plasma [2345-7] 227 mg/dL N Blood chemistry[] Glucose [Mass/volume] in Ser um or Plasma [2345-7] 262 mg/dL N Blood chemistry[] Glucose [Mass/volume] in Ser um or Plasma [2345-7] 224 mg/dL N Blood chemistry[] Glucose [Mass/volume] in Ser um or Plasma [2345-7] 256 mg/dL N Blood chemistry[] Glucose [Mass/volume] in Ser um or Plasma [2345-7] 150 mg/dL N Blood chemistry[] Glucose [Mass/volume] in Ser um or Plasma [2345-7] 150 mg/dL N Blood chemistry[] Glucose [Mass/volume] in Ser um or Plasma [2345-7] 249 mg/dL N Blood chemistry[] Glucose [Mass/volume] in Ser um or Plasma [2345-7] 195 mg/dL N Blood chemistry[] Glucose [Mass/volume] in Ser um or Plasma [2345-7] 233 mg/dL N Blood chemistry[] Glucose [Mass/volume] in Ser um or Plasma [2345-7] 284 mg/dL N Blood chemistry[] Glucose [Mass/volume] in Ser um or Plasma [2345-7] 284 mg/dL N Blood chemistry[] Glucose [Mass/volume] in Ser um or Plasma [2345-7] 253 mg/dL N Blood chemistry[] Glucose [Mass/volume] in Ser um or Plasma [2345-7] 275 mg/dL N Blood chemistry[] Glucose [Mass/volume] in Ser um or Plasma [2345-7] 275 mg/dL N Blood chemistry[] Glucose [Mass/volume] in Ser um or Plasma [2345-7] 241 mg/dL N Blood chemistry[] Glucose [Mass/volume] in Ser um or Plasma [2345-7] 233 mg/dL N Blood chemistry[] Glucose [Mass/volume] in Ser um or Plasma [2345-7] 265 mg/dL N Blood chemistry[] Glucose [Mass/volume] in Ser um or Plasma [2345-7] 265 mg/dL N Blood chemistry[] Glucose [Mass/volume] in Ser um or Plasma [2345-7] 299 mg/dL N Blood chemistry[] Glucose [Mass/volume] in Ser um or Plasma [2345-7] 169 mg/dL N Blood chemistry[] Glucose [Mass/volume] in Ser um or Plasma [2345-7] 230 mg/dL N Blood chemistry[] Glucose [Mass/volume] in Ser um or Plasma [2345-7] 280 mg/dL N Blood chemistry[] Glucose [Mass/volume] in Ser um or Plasma [2345-7] 168 mg/dL N Blood chemistry[] Glucose [Mass/volume] in Ser um or Plasma [2345-7] 281 mg/dL N Blood chemistry[] Glucose [Mass/volume] in Ser um or Plasma [2345-7] 253 mg/dL N Blood chemistry[] Glucose [Mass/volume] in Ser um or Plasma [2345-7] 259 mg/dL N Blood chemistry[] Glucose [Mass/volume] in Ser um or Plasma [2345-7] 220 mg/dL N Blood chemistry[] Glucose [Mass/volume] in Ser um or Plasma [2345-7] 279 mg/dL N Blood chemistry[] Glucose [Mass/volume] in Ser um or Plasma [2345-7] 217 mg/dL N Blood chemistry[] Glucose [Mass/volume] in Ser um or Plasma [2345-7] 299 mg/dL N Blood chemistry[] Glucose [Mass/volume] in Ser um or Plasma [2345-7] 184 mg/dL N Blood chemistry[] Glucose [Mass/volume] in Ser um or Plasma [2345-7] 262 mg/dL N Blood chemistry[] Glucose [Mass/volume] in Ser um or Plasma [2345-7] 236 mg/dL N Blood chemistry[] Glucose [Mass/volume] in Ser um or Plasma [2345-7] 290 mg/dL N Blood chemistry[] Glucose [Mass/volume] in Ser um or Plasma [2345-7] 222 mg/dL N Blood chemistry[] Glucose [Mass/volume] in Ser um or Plasma [2345-7] 251 mg/dL N Blood chemistry[] Glucose [Mass/volume] in Ser um or Plasma [2345-7] 281 mg/dL N Blood chemistry[] Glucose [Mass/volume] in Ser um or Plasma [2345-7] 273 mg/dL N Blood chemistry[] Glucose [Mass/volume] in Ser um or Plasma [2345-7] 218 mg/dL N Blood chemistry[] Glucose [Mass/volume] in Ser um or Plasma [2345-7] 255 mg/dL N Blood chemistry[] Glucose [Mass/volume] in Ser um or Plasma [2345-7] 209 mg/dL N Blood chemistry[] Glucose [Mass/volume] in Ser um or Plasma [2345-7] 311 mg/dL N Blood chemistry[] Glucose [Mass/volume] in Ser um or Plasma [2345-7] 282 mg/dL N Blood chemistry[] Glucose [Mass/volume] in Ser um or Plasma [2345-7] 342 mg/dL N Blood chemistry[] Glucose [Mass/volume] in Ser um or Plasma [2345-7] 276 mg/dL N Blood chemistry[] Glucose [Mass/volume] in Ser um or Plasma [2345-7] 196 mg/dL N Blood chemistry[] Glucose [Mass/volume] in Ser um or Plasma [2345-7] 258 mg/dL N Blood chemistry[] Glucose [Mass/volume] in Ser um or Plasma [2345-7] 256 mg/dL N Blood chemistry[] Glucose [Mass/volume] in Ser um or Plasma [2345-7] 237 mg/dL N Blood chemistry[] Glucose [Mass/volume] in Ser um or Plasma [2345-7] 286 mg/dL N Blood chemistry[] Glucose [Mass/volume] in Ser um or Plasma [2345-7] 265 mg/dL N Blood chemistry[] Glucose [Mass/volume] in Ser um or Plasma [2345-7] 253 mg/dL N Blood chemistry[] Glucose [Mass/volume] in Ser um or Plasma [2345-7] 300 mg/dL N Blood chemistry[] Glucose [Mass/volume] in Ser um or Plasma [2345-7] 300 mg/dL N Blood chemistry[] Glucose [Mass/volume] in Ser um or Plasma [2345-7] 199 mg/dL N Blood chemistry[] Glucose [Mass/volume] in Ser um or Plasma [2345-7] 258 mg/dL N Blood chemistry[] Glucose [Mass/volume] in Ser um or Plasma [2345-7] 251 mg/dL N Blood chemistry[] Glucose [Mass/volume] in Ser um or Plasma [2345-7] 300 mg/dL N Blood chemistry[] Glucose [Mass/volume] in Ser um or Plasma [2345-7] 226 mg/dL N Blood chemistry[] Glucose [Mass/volume] in Ser um or Plasma [2345-7] 226 mg/dL N Blood chemistry[] Glucose [Mass/volume] in Ser um or Plasma [2345-7] 276 mg/dL N Blood chemistry[] Glucose [Mass/volume] in Ser um or Plasma [2345-7] 290 mg/dL N Blood chemistry[] Glucose [Mass/volume] in Ser um or Plasma [2345-7] 337 mg/dL N Blood chemistry[] Glucose [Mass/volume] in Ser um or Plasma [2345-7] 326 mg/dL N Blood chemistry[] Glucose [Mass/volume] in Ser um or Plasma [2345-7] 202 mg/dL N Blood chemistry[] Glucose [Mass/volume] in Ser um or Plasma [2345-7] 221 mg/dL N Blood chemistry[] Glucose [Mass/volume] in Ser um or Plasma [2345-7] 305 mg/dL N Glucose [Mass/volume] in Ser um or Plasma [2345-7] 195 mg/dL N Blood chemistry[] Glucose [Mass/volume] in Ser um or Plasma [2345-7] 217 mg/dL N Blood chemistry[] Glucose [Mass/volume] in Ser um or Plasma [2345-7] 256 mg/dL N Blood chemistry[] Glucose [Mass/volume] in Ser um or Plasma [2345-7] 250 mg/dL N Blood chemistry[] Glucose [Mass/volume] in Ser um or Plasma [2345-7] 334 mg/dL N Blood chemistry[] Glucose [Mass/volume] in Ser um or Plasma [2345-7] 191 mg/dL N Blood chemistry[] Glucose [Mass/volume] in Ser um or Plasma [2345-7] 186 mg/dL N Blood chemistry[] Glucose [Mass/volume] in Ser um or Plasma [2345-7] 221 mg/dL N Blood chemistry[] Glucose [Mass/volume] in Ser um or Plasma [2345-7] 226 mg/dL N Blood chemistry[] Glucose [Mass/volume] in Ser um or Plasma [2345-7] 281 mg/dL N Blood chemistry[] Glucose [Mass/volume] in Ser um or Plasma [2345-7] 246 mg/dL N Blood chemistry[] Glucose [Mass/volume] in Ser um or Plasma [2345-7] 300 mg/dL N Blood chemistry[] Glucose [Mass/volume] in Ser um or Plasma [2345-7] 182 mg/dL N Blood chemistry[] Glucose [Mass/volume] in Ser um or Plasma [2345-7] 192 mg/dL N Blood chemistry[] Glucose [Mass/volume] in Ser um or Plasma [2345-7] 244 mg/dL N Blood chemistry[] Glucose [Mass/volume] in Ser um or Plasma [2345-7] 191 mg/dL N Glucose [Mass/volume] in Ser um or Plasma [2345-7] 191 mg/dL N Blood chemistry[] Glucose [Mass/volume] in Ser um or Plasma [2345-7] 216 mg/dL N Blood chemistry[] Glucose [Mass/volume] in Ser um or Plasma [2345-7] 306 mg/dL N Blood chemistry[] Glucose [Mass/volume] in Ser um or Plasma [2345-7] 253 mg/dL N Blood chemistry[] Glucose [Mass/volume] in Ser um or Plasma [2345-7] 294 mg/dL N Blood chemistry[] Glucose [Mass/volume] in Ser um or Plasma [2345-7] 399 mg/dL N Blood chemistry[] Glucose [Mass/volume] in Ser um or Plasma [2345-7] 300 mg/dL N Blood chemistry[] Glucose [Mass/volume] in Ser um or Plasma [2345-7] 266 mg/dL N Blood chemistry[] Glucose [Mass/volume] in Ser um or Plasma [2345-7] 174 mg/dL N Blood chemistry[] Glucose [Mass/volume] in Ser um or Plasma [2345-7] 254 mg/dL N Blood chemistry[] Glucose [Mass/volume] in Ser um or Plasma [2345-7] 258 mg/dL N Blood chemistry[] Glucose [Mass/volume] in Ser um or Plasma [2345-7] 295 mg/dL N Blood chemistry[] Glucose [Mass/volume] in Ser um or Plasma [2345-7] 292 mg/dL N Blood chemistry[] Glucose [Mass/volume] in Ser um or Plasma [2345-7] 221 mg/dL N Blood chemistry[] Glucose [Mass/volume] in Ser um or Plasma [2345-7] 293 mg/dL N Blood chemistry[] Glucose [Mass/volume] in Ser um or Plasma [2345-7] 355 mg/dL N Blood chemistry[] Glucose [Mass/volume] in Ser um or Plasma [2345-7] 263 mg/dL N Blood chemistry[] Glucose [Mass/volume] in Ser um or Plasma [2345-7] 290 mg/dL N Blood chemistry[] Glucose [Mass/volume] in Ser um or Plasma [2345-7] 253 mg/dL N Blood chemistry[] Glucose [Mass/volume] in Ser um or Plasma [2345-7] 313 mg/dL N Blood chemistry[] Glucose [Mass/volume] in Ser um or Plasma [2345-7] 297 mg/dL N Blood chemistry[] Glucose [Mass/volume] in Ser um or Plasma [2345-7] 214 mg/dL N Blood chemistry[] Glucose [Mass/volume] in Ser um or Plasma [2345-7] 271 mg/dL N Blood chemistry[] Glucose [Mass/volume] in Ser um or Plasma [2345-7] 232 mg/dL N Blood chemistry[] Glucose [Mass/volume] in Ser um or Plasma [2345-7] 271 mg/dL N Blood chemistry[] Glucose [Mass/volume] in Ser um or Plasma [2345-7] 210 mg/dL N Blood chemistry[] Glucose [Mass/volume] in Ser um or Plasma [2345-7] 238 mg/dL N Blood chemistry[] Glucose [Mass/volume] in Ser um or Plasma [2345-7] 266 mg/dL N Blood chemistry[] Glucose [Mass/volume] in Ser um or Plasma [2345-7] 300 mg/dL N Blood chemistry[] Glucose [Mass/volume] in Ser um or Plasma [2345-7] 345 mg/dL N Blood chemistry[] Glucose [Mass/volume] in Ser um or Plasma [2345-7] 278 mg/dL N Blood chemistry[] Glucose [Mass/volume] in Ser um or Plasma [2345-7] 265 mg/dL N Blood chemistry[] Glucose [Mass/volume] in Ser um or Plasma [2345-7] 225 mg/dL N Blood chemistry[] Glucose [Mass/volume] in Ser um or Plasma [2345-7] 295 mg/dL N Blood chemistry[] Glucose [Mass/volume] in Ser um or Plasma [2345-7] 225 mg/dL N Blood chemistry[] Glucose [Mass/volume] in Ser um or Plasma [2345-7] 321 mg/dL N Blood chemistry[] Glucose [Mass/volume] in Ser um or Plasma [2345-7] 218 mg/dL N Blood chemistry[] Glucose [Mass/volume] in Ser um or Plasma [2345-7] 200 mg/dL N Blood chemistry[] Glucose [Mass/volume] in Ser um or Plasma [2345-7] 294 mg/dL N Blood chemistry[] Glucose [Mass/volume] in Ser um or Plasma [2345-7] 315 mg/dL N Blood chemistry[] Glucose [Mass/volume] in Ser um or Plasma [2345-7] 226 mg/dL N Blood chemistry[] Glucose [Mass/volume] in Ser um or Plasma [2345-7] 300 mg/dL N Glucose [Mass/volume] in Ser um or Plasma [2345-7] 375 mg/dL N Blood chemistry[[id number]] Glucose [Mass/volume] in Ser um or Plasma [2345-7] 205 mg/dL N Blood chemistry[] Glucose [Mass/volume] in Ser um or Plasma [2345-7] 170 mg/dL N Blood chemistry[] Glucose [Mass/volume] in Ser um or Plasma [2345-7] 256 mg/dL N Blood chemistry[] Glucose [Mass/volume] in Ser um or Plasma [2345-7] 461 mg/dL N Blood chemistry[] Glucose [Mass/volume] in Ser um or Plasma [2345-7] 203 mg/dL N Blood chemistry[] Glucose [Mass/volume] in Ser um or Plasma [2345-7] 220 mg/dL N Blood chemistry[] Glucose [Mass/volume] in Ser um or Plasma [2345-7] 250 mg/dL N Blood chemistry[] Glucose [Mass/volume] in Ser um or Plasma [2345-7] 247 mg/dL N Blood chemistry[] Glucose [Mass/volume] in Ser um or Plasma [2345-7] 174 mg/dL N Blood chemistry[] Glucose [Mass/volume] in Ser um or Plasma [2345-7] 246 mg/dL N Blood chemistry[] Glucose [Mass/volume] in Ser um or Plasma [2345-7] 192 mg/dL N Blood chemistry[] Glucose [Mass/volume] in Ser um or Plasma [2345-7] 199 mg/dL N Blood chemistry[] Glucose [Mass/volume] in Ser um or Plasma [2345-7] 206 mg/dL N Blood chemistry[] Glucose [Mass/volume] in Ser um or Plasma [2345-7] 288 mg/dL N Blood chemistry[] Glucose [Mass/volume] in Ser um or Plasma [2345-7] 222 mg/dL N Blood chemistry[] Glucose [Mass/volume] in Ser um or Plasma [2345-7] 180 mg/dL N Glucose [Mass/volume] in Ser um or Plasma [2345-7] 180 mg/dL N Blood chemistry[] Glucose [Mass/volume] in Ser um or Plasma [2345-7] 273 mg/dL N Blood chemistry[] Glucose [Mass/volume] in Ser um or Plasma [2345-7] 340 mg/dL N Blood chemistry[] Glucose [Mass/volume] in Ser um or Plasma [2345-7] 218 mg/dL N Blood chemistry[] Glucose [Mass/volume] in Ser um or Plasma [2345-7] 387 mg/dL N Blood chemistry[] Glucose [Mass/volume] in Ser um or Plasma [2345-7] 387 mg/dL N Blood chemistry[] Glucose [Mass/volume] in Ser um or Plasma [2345-7] 226 mg/dL N Blood chemistry[] Glucose [Mass/volume] in Ser um or Plasma [2345-7] 269 mg/dL N Blood chemistry[] Glucose [Mass/volume] in Ser um or Plasma [2345-7] 187 mg/dL N Blood chemistry[] Glucose [Mass/volume] in Ser um or Plasma [2345-7] 314 mg/dL N Blood chemistry[] Glucose [Mass/volume] in Ser um or Plasma [2345-7] 314 mg/dL N Blood chemistry[] Glucose [Mass/volume] in Ser um or Plasma [2345-7] 221 mg/dL N Blood chemistry[] Glucose [Mass/volume] in Ser um or Plasma [2345-7] 204 mg/dL N Blood chemistry[] Glucose [Mass/volume] in Ser um or Plasma [2345-7] 254 mg/dL N Blood chemistry[] Glucose [Mass/volume] in Ser um or Plasma [2345-7] 256 mg/dL N Glucose [Mass/volume] in Ser um or Plasma [2345-7] 256 mg/dL N Blood chemistry[] Glucose [Mass/volume] in Ser um or Plasma [2345-7] 381 mg/dL N Blood chemistry[] Glucose [Mass/volume] in Ser um or Plasma [2345-7] 381 mg/dL N Blood chemistry[[id number]] Glucose [Mass/volume] in Ser um or Plasma [2345-7] 227 mg/dL N Blood chemistry[] Glucose [Mass/volume] in Ser um or Plasma [2345-7] 286 mg/dL N Blood chemistry[[id number]] Glucose [Mass/volume] in Ser um or Plasma [2345-7] 225 mg/dL N Blood chemistry[] Glucose [Mass/volume] in Ser um or Plasma [2345-7] 205 mg/dL N Glucose [Mass/volume] in Ser um or Plasma [2345-7] 205 mg/dL N Blood chemistry[] Glucose [Mass/volume] in Ser um or Plasma [2345-7] 315 mg/dL N Glucose [Mass/volume] in Ser um or Plasma [2345-7] 315 mg/dL N Blood chemistry[[id number]] Glucose [Mass/volume] in Ser um or Plasma [2345-7] 287 mg/dL N Blood chemistry[[id number]] Glucose [Mass/volume] in Ser um or Plasma [2345-7] 287 mg/dL N Blood chemistry[[id number]] Glucose [Mass/volume] in Ser um or Plasma [2345-7] 343 mg/dL N Blood chemistry[[id number]] Glucose [Mass/volume] in Ser um or Plasma [2345-7] 225 mg/dL N Blood chemistry[[id number]] Glucose [Mass/volume] in Ser um or Plasma [2345-7] 169 mg/dL N Tuberculosis reaction wheal[ 57180-9] Tuberculosis reaction wheal [23329-7] 0 mm NEG Blood chemistry[[id number]] Glucose [Mass/volume] in Ser um or Plasma [2345-7] 285 mg/dL N Blood chemistry[[id number]] Glucose [Mass/volume] in Ser um or Plasma [2345-7] 322 mg/dL N Blood chemistry[[id number]] Glucose [Mass/volume] in Ser um or Plasma [2345-7] 182 mg/dL N Blood chemistry[[id number]] Glucose [Mass/volume] in Ser um or Plasma [2345-7] 286 mg/dL N Blood chemistry[[id number]] Glucose [Mass/volume] in Ser um or Plasma [2345-7] 247 mg/dL N Blood chemistry[[id number]] Glucose [Mass/volume] in Ser um or Plasma [2345-7] 218 mg/dL N Blood chemistry[[id number]] Glucose [Mass/volume] in Ser um or Plasma [2345-7] 218 mg/dL N Tuberculosis reaction wheal[ 47694-5] Tuberculosis reaction wheal [51515-1] 0 mm NEG Blood chemistry[[id number]] Glucose [Mass/volume] in Ser um or Plasma [2345-7] 216 mg/dL N Glucose [Mass/volume] in Ser um or Plasma [2345-7] 216 mg/dL N Blood chemistry[[id number]] Glucose [Mass/volume] in Ser um or Plasma [2345-7] 267 mg/dL N Blood chemistry[[id number]] Glucose [Mass/volume] in Ser um or Plasma [2345-7] 299 mg/dL N Blood chemistry[[id number]] Glucose [Mass/volume] in Ser um or Plasma [...] Blood Sugar is greater than 450, call subcutaeliot ous 1.0 10/06 Type 2 diabetes mellitus [...] Day oral 1.0 12.0 h 08/23 Active galantamine 4 mg tablet (galantamine) 1 [...] Sugar is greater than 450, call MD. tolentino ous 1.0 08/23 Active Humalog U-100 Insulin (insulin [...] Sugar is greater than 450, call MD. tolentino ous 1.0 08/24 Type 2 diabetes mellitus [...] At Bedtime oral 1.0 11/19 Active Thera-M (hrnnvyhk-ilo-j dennise fum-folic ac) 19 mg iron- 400 mcg tablet (Thera-M (bzzbzilf-dzc-w dennise fum-folic ac)) 1 tab, oral, Once A Day, TI for MVI with folic acid oral 1.0 1.0 d 11/19 Active Tab-A-Marylou Multivitamin w-iron (multivitamin-i dennsie-folic acid) 18-400 mg-mcg tablet (Tab-A-Marylou Multivitamin w-iron [...]
[2025-04-10 15:18] VITALS: BP 141/75; PULSE 84; RESP 16; TEMP 36.7; O2SAT 99
[2025-04-10 15:21] LABS: Hematocrit 36.2 % (37-53); Hemoglobin 11.60 g/dL (11.27-16.99); Mean Corpuscular HGB Conc 32.0 g/dL (30-55); Mean Corpuscular Hemoglobin 28.9 pg (27-33); Mean Corpuscular Volume 90.0 fl (82-101); Nucleated Red Blood Cells % 0 %; Platelet Count 360 10^3/cmm (157-399); Red Blood Count 4.02 10^6/uL (3.85-5.65); White Blood Count 12.73 10^3/uL (3.29-11.43)
--- NOTE | 2025-04-10 15:26 | CT_ITS ---
WS: [id number] Exam: CT kidney stone [id number] Date/Time of Exam: 04/10/2025 3:36 PM Reason For Exam: flank pain DLP: 726.[address] scans at [facility] use at least one of these dose optimization techniques: automated exposure control; mA and/or kV adjustment per patient size (includes targeted exams where dose is matched to clinical indication); or iterative reconstruction. Comparison 03/02/2025. Bronchiectasis noted in the bilateral lower lung zones. Small pericardial effusion noted. Coronary artery calcifications. There are percutaneous bilateral nephrostomy tubes in place both in satisfactory location. There is new mild dilatation of the LEFT renal pelvis and LEFT ureter no obstructing calculus is seen. The right renal collecting system is nondilated. Inflammatory changes about the RIGHT renal hilum that may represent chronic pyelonephritis. This is stable in appearance. Small nonobstructing calculus again noted in the RIGHT kidney. The liver, spleen and stomach are unremarkable. The pancreas appears normal. There is sludge and/or small stones in the gallbladder. No sign of acute cholecystitis. The abdominal aorta is normal in caliber. Normal adrenal glands. No lymphadenopathy or free air. Nondilated small bowel loops. Normal appendix. Diverticulosis of the sigmoid and LEFT colon. No sign of acute diverticulitis. No pelvic mass or lymphadenopathy. The urinary bladder appears almost totally collapsed and difficult to define. Again noted are advanced degenerative and destructive changes in the lumbar spine which are stable. Marked degenerative changes in the hips. CT/CT kidney stone [id number] IMPRESSION: 1. Interim dilatation of the LEFT renal pelvis and LEFT ureter however no defin ite obstructing stone is identified. The ureter is dilated to the urinary bladd er. 2. Bilateral percutaneous nephrostomy tubes remain in good position. 3. Small nonobstructing RIGHT renal stone. Inflammatory change about the RIGHT renal pelvis that may indicate chronic pyelonephritis. 4. Advanced degenerative changes of the lumbar spine. Stable appearing osseous destructive changes at L3-4 which might represent discitis or osteomyelitis. 5. Additional nonacute chronic findings.
--- NOTE | 2025-04-10 15:26 | W.ED.ABDPA2 ---
HPI - Abdominal Pain General: Chief Complaint: Abdominal Pain Stated Complaint: abd pain Time Seen by Provider: 04/10/25 15:15 History of Present Illness: 75-year-old male presents to the emergency room complaining of left flank pain. Patient has bilateral nephrostomy tubes these were placed because he developed a neurogenic bladder after prostate cancer his bladder was contracted with no longer expanded he had a ureteral stent in for a time that did not help the issue and he ultimately had the nephrostomy tubes placed. He has had several exchanges in the past. Currently he has been being seen in [place]. He is a resident of a local group home. Associated Symptoms: Denies chills, dysuria and fever(s) Related Data Home Medications ?Medication ?Instructions ?Recorded ?Confirmed fluticasone 100 mcg-salmeterol 50 1 inh inhalation BID 10/03/21 02/24/25 mcg/dose blistr powdr for inhalation (Wixela Inhub) acetaminophen 325 mg tablet 650 mg PO Q6H PRN Pain 07/02/23 02/24/25 (Tylenol) bisacodyl 10 mg rectal suppository 10 mg PA DAILY PRN Constipation 07/02/23 02/24/25 (Dulcolax (bisacodyl)) albuterol sulfate 90 mcg/actuation 2 puff inhalation Q4H PRN Dyspnea 04/27/24 02/24/25 aerosol inhaler docusate sodium 100 mg capsule 100 mg PO BID 04/27/24 02/24/25 (Colace) furosemide 20 mg tablet 20 mg PO DAILY 04/27/24 02/24/25 atorvastatin 80 mg tablet 80 mg PO DAILY 11/26/24 02/24/25 cholecalciferol (vitamin D3) 25 25 mcg PO DAILY 11/26/24 02/24/25 mcg (1,000 unit) tablet cyanocobalamin (vitamin B-12) 1,000 mcg PO DAILY 11/26/24 02/24/25 1,000 mcg tablet dextromethorphan-guaifenesin 10 5 - 10 ml PO Q6H PRN Congestion 11/26/24 02/24/25 mg-100 mg/5 mL oral liquid digoxin 125 mcg (0.125 mg) tablet 125 mcg PO DAILY 11/26/24 02/24/25 donepezil 5 mg tablet 5 mg PO DAILY 11/26/24 02/24/25 ferrous sulfate 325 mg (65 mg 325 mg PO DAILY 11/26/24 02/24/25 iron) tablet (FeroSul) finasteride 5 mg tablet 5 mg PO DAILY 11/26/24 02/24/25 fluticasone propionate 50 1 spray intranasal DAILY 11/26/24 02/24/25 mcg/actuation nasal spray,suspension hydrocodone 7.5 mg-acetaminophen 1 tab PO Q4H PRN Pain 11/26/24 02/24/25 325 mg tablet insulin lispro 100 unit/mL See Rx Instructions .Route .COMPLEX 11/26/24 02/24/25 subcutaneous pen melatonin 1 mg tablet 1 mg PO DAILY PRN Sleep 11/26/24 02/24/25 metformin 500 mg tablet 500 mg PO DAILY 11/26/24 02/24/25 multivitamin with folic acid 400 1 tab PO DAILY 11/26/24 02/24/25 mcg tablet (Daily-Marylou (with folic acid)) omeprazole 20 mg capsule,delayed 20 mg PO DAILY 11/26/24 02/24/25 release ondansetron HCl 4 mg tablet 4 mg PO .BEFORE MEALS PRN Nausea 11/26/24 02/24/25 And Vomiting silver sulfadiazine 1 % topical See Rx Instructions .Route .COMPLEX 11/26/24 02/24/25 cream tamsulosin 0.4 mg capsule 0.4 mg PO BEDTIME 11/26/24 02/24/25 amiodarone 200 mg tablet 200 mg PO DAILY 02/24/25 02/24/25 potassium chloride 10 mEq 10 meq PO DAILY 02/24/25 02/24/25 tablet,extended release(part/cryst) (Klor-Con M) Previous Rx's ?Medication ?Instructions ?Recorded flash glucose scanning reader #1 ea 08/25/23 (FreeStyle Jimi 2 Pedro) FreeStyle Jimi 2 Sensor (flash #6 ea 12/11/23 glucose sensor) blood-glucose sensor (Dexcom G7 #3 ea 02/08/24 Sensor device) blood-glucose,wafer batter mixer,cont #1 ea 02/08/24 (Dexcom G7 Lens Grinder Rough) magnesium hydroxide 400 mg/5 mL 20 ml PO BID PRN constipation #355 05/16/24 oral suspension (Milk of Magnesia) mL insulin glargine 100 unit/mL (3 5 unit (0.05 mL) SUBCUT DAILY #15 12/02/24 mL) subcutaneous pen (Lantus mL Solostar U-100 Insulin) Allergies Allergy/AdvReac Type Severity Reaction Status Date / Time pollen extracts Allergy Unknown Verified 02/24/25 09:23 Review of Systems Const: Denies: fever(s) or chills Card: Denies: chest pain Resp: Denies: dyspnea GI: Denies: abdominal pain : Reports: flank pain; Denies: dysuria, urinary frequency or urinary urgency Musc: Denies: neck pain or back pain Skin/Breast: Denies: rash PFSH ED PFSH: Medical History Yeast UTI Hematuria due to acute cystitis Mild cognitive impairment with memory loss Bacteriuria Alzheimer disease 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 mellitus History of Doppler ultrasound 08/2021 venous no DVT BLE 08/2021 arterial patent vessels, left posterior tibial may be less than 60% stenosis, left dorsalis pedis not visualized Gait instability SARS-CoV-2 positive positive test 11/17/2021 symptoms weakness, hypoglycemia, altered mental status and low grade fever Anemia Intermittent self-catheterization of bladder due to urinary retention History of sleep study 02/22 limited sleep, no apnea noted but did have nocturnal hypoxemia, recommended to use nocturnal oxygen History of electromyography 01/23 Interpretation: The study provides electrodiagnostic evidence for an axonal sensorimotor polyneuropathy based on small or absent CMAPs and SNAPs with denervation seen distally on EMG. The study is limited for evaluation of lumbar radiculopathy related to the patient's anticoagulated state. History of echocardiogram 05/2021 EF 65% History of cardiovascular stress test 05/2021 normal EKG response, perfusion study without findings of ischemia Diabetes mellitus, type II Chronic anticoagulation Taken off Xarelto secondary to hematuria BPH loc w urin obs/LUTS Obstructive pyelonephritis 09/2021 required ureteral stent placement Left ureteral calculus Diabetic foot ulcer 08/2021 - treated with I&D, antibiotics and wound care clinic management Lumbar stenosis with neurogenic claudication 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 mellitus Cervicalgia of [id number] region Lumbar stenosis L2/3, L3/4, L4/L5, with radiculopathy right lower extremity H/O prostate cancer Obstructive sleep apnea Refuses CPAP HTN (hypertension) previously on treatment for high blood pressure Atrial fibrillation Surgical History Status post excisional debridement 08/2021 left foot History of laminectomy 03/25 bilateral with partial facetectomies at L2-3, L3-4, L4-[address] Smith Other postprocedural status history of radiofrequency ablation for back pain x 2 Status post laser lithotripsy of ureteral calculus (11/06/21) S/P ureteral stent placement (09/2021) subsequent removal H/O esophagogastroduodenoscopy (10/30/21) 10/2021 pedunculated polyps removed from first portion of duodenum, otherwise normal History of colonoscopy (10/30/21) 11/2021 diverticulosis of sigmoid colon and internal hemorrhoids, sessile polyps removed History of back surgery S/P tonsillectomy S/P appendectomy History of pilonidal cyst Family History Grandmother Heart disease Hypertension Grandfather Hypertension MATERNAL Diabetes Mother No problems noted. Father No problems noted. 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 Physical Exam Const: COMMON NORMALS: no acute distress GENERAL APPEARANCE: cooperative and comfortable ORIENTATION/CONSCIOUSNESS: Yes awake, Yes oriented to person, Yes oriented to place and Yes oriented to time HENMT: COMMON NORMALS: normocephalic, atraumatic and hearing grossly normal bilaterally HEAD & SCALP: normocephalic and atraumatic Resp: COMMON NORMALS: normal respiratory effort, No retractions, No use of accessory muscles and clear to auscultation bilaterally AUSCULTATION: clear to auscultation bilaterally Cardio: COMMON NORMALS: regular rate, regular rhythm and No murmurs present (Cardio) RATE: regular rate RHYTHM: regular rhythm GI: COMMON NORMALS: Soft to palpation and No hepatosplenomegaly present AUSCULTATION: Yes normoactive bowel sounds PALPATION: Yes Soft to palpation, No Tenderness to palpation present (GI), No Guarding due to palpation present (GI) and Yes No hepatosplenomegaly present : BLADDER/KIDNEY EXAM: Yes CVA tenderness Back/Pelvis: GENERAL BACK: Yes CVA tenderness CVA tenderness: left Extremity: COMMON NORMALS: normal to inspection, capillary refill normal, no clubbing, cyanosis or edema, no calf tenderness and no pedal edema Neuro: SENSORIUM/ORIENTATION: Yes oriented to person, Yes oriented to place and Yes oriented to time Skin: COMMON NORMALS: no rashes or lesions noted GENERAL SKIN EXAM: no rashes or lesions noted Course Vital Signs: Vital signs: Vital Signs Temperature 98.1 F 04/10/25 15:18 Pulse Rate 66 04/10/25 23:30 Respiratory Rate 17 04/10/25 23:30 Blood Pressure 135/66 04/10/25 23:30 Pulse Oximetry 96 04/10/25 23:30 Oxygen Delivery Me thod Room Air 04/10/25 20:03 MDM - Abdominal Pain Medical Decision Making CT shows dilated left renal pelvis which is new corresponding to his decreased output and flank pain. Urine shows signs of infection antibiotics started. Patient remained stable. [facility] does not have urology coverage making arrangements for other potential transfer. Patient accepted by Dr. Mitchell at [facility]. Transfer by [facility] ambulance. Medical Records I reviewed the patient's medical records. Lab Data I reviewed the patient's lab results. 04/10/25 15:00 04/10/25 15:00 Labs/Radiology: Radiology Impressions Abdomen/Pelvis CT 04/10/25 15:26 IMPRESSION: 1. Interim dilatation of the LEFT renal pelvis and LEFT ureter however no definite obstructing stone is identified. The ureter is dilated to the urinary bladder. 2. Bilateral percutaneous nephrostomy tubes remain in good position. 3. Small nonobstructing RIGHT renal stone. Inflammatory change about the RIGHT renal pelvis that may indicate chronic pyelonephritis. 4. Advanced degenerative changes of the lumbar spine. Stable appearing osseous destructive changes at L3-4 which might represent discitis or osteomyelitis. 5. Additional nonacute chronic findings. Laboratory Results WBC 12.73 10^3/uL (3.29-11.43) H 04/10/25 15:00 RBC 4.02 10^6/uL (3.85-5.65) 04/10/25 15:00 Hgb 11.60 g/dL (11.27-16.99) 04/10/25 15:00 Hct 36.2 % (37-53) L 04/10/25 15:00 MCV 90.0 fl (82-101) 04/10/25 15:00 MCH 28.9 pg (27-33) 04/10/25 15:00 MCHC 32.0 g/dL (30-55) 04/10/25 15:00 RDW 15.1 % (12.1-15.1) 04/10/25 15:00 Plt Count 360 10^3/cmm (157-399) 04/10/25 15:00 MPV 10.1 fL (7.4-10.4) 04/10/25 15:00 Neut % (Auto) 72.8 % 04/10/25 15:00 Lymph % (Auto) 16.6 % 04/10/25 15:00 [place] % (Auto) 5.7 % 04/10/25 15:00 Eos % (Auto) 3.7 % 04/10/25 15:00 Baso % (Auto) 0.7 % 04/10/25 15:00 Neut # (Auto) 9.27 10^3/uL (1.8-7.7) H 04/10/25 15:00 Lymph # (Auto) 2.1 10^3/uL (0.8-4.8) 04/10/25 15:00 [place] # (Auto) 0.7 10^3/uL (0.2-0.9) 04/10/25 15:00 Eos # (Auto) 0.5 10^3/uL (0.0-0.8) 04/10/25 15:00 Baso # (Auto) 0.1 10^3/uL (0.0-0.1) 04/10/25 15:00 Nucleated RBC % (auto) 0 % 04/10/25 15:00 Nucleated RBCs # 0.0 /100WBC 04/10/25 15:00 Sodium 139 mmol/L (136-145) 04/10/25 15:00 Potassium 3.9 mmol/L (3.5-5.1) 04/10/25 15:00 Chloride 101 mmol/L (98-107) 04/10/25 15:00 Carbon Dioxide 25 mmol/L (22-29) 04/10/25 15:00 Anion Gap 16.9 (5-19) 04/10/25 15:00 BUN 15 mg/dL (8-23) 04/10/25 15:00 Creatinine 0.9 mg/dL (0.7-1.2) 04/10/25 15:00 GFR Calculation Not Reportable 04/10/25 15:00 Glucose 185 mg/dL (65-115) H 04/10/25 15:00 Calculated Osmolality 294 mOsm/kg (285-295) 04/10/25 15:00 Lactic Acid 2.4 mmol/L (0.5-2.2) H 04/10/25 16:26 Lactic Acid (Sepsis) 1.6 mmol/L (0.5-2.2) 04/10/25 19:20 Calcium 9.2 mg/dL (8.5-10.5) 04/10/25 15:00 Total Bilirubin 0.4 mg/dL (0.15-1.2) 04/10/25 15:00 AST 15 U/L (0-40) 04/10/25 15:00 ALT 12 U/L (0-41) 04/10/25 15:00 Alkaline Phosphatase 108 U/L (40-130) 04/10/25 15:00 Total Protein 6.9 g/dL (6.6-8.7) 04/10/25 15:00 Albumin 3.6 g/dL (3.5-5.2) 04/10/25 15:00 Globulin 3.3 g/dL (1.3-4.6) 04/10/25 15:00 Lipase 41 U/L (13-60) 04/10/25 15:00 Urine Color Yellow (Yellow) 04/10/25 17:18 Urine Appearance Cloudy (CLEAR) A 04/10/25 17:18 Urine pH 6.5 (5-7) 04/10/25 17:18 Ur Specific [place] 1.010 (1.005-1.030) 04/10/25 17:18 Urine Protein 1+ (Negative) A 04/10/25 17:18 Urine Glucose (UA) Trace (Normal) H 04/10/25 17:18 Urine Ketones Negative (Negative) 04/10/25 17:18 Urine Blood 2+ (Negative) A 04/10/25 17:18 Urine Nitrate Negative (Negative) 04/10/25 17:18 Urine Bilirubin Negative (Negative) 04/10/25 17:18 Urine Urobilinogen 1.0 mg/dL (Negative) 04/10/25 17:18 Ur Leukocyte Esterase 3+ (Negative) A 04/10/25 17:18 Urine RBC 21-50 /hpf (0-2) H 04/10/25 17:18 Urine WBC >100 /hpf (0-5) H 04/10/25 17:18 Ur Squamous Epith Cells 0-5 /hpf (0-5) 04/10/25 17:18 Amorphous Sediment Not Reportable 04/10/25 17:18 Urine Bacteria None seen /hpf (NONE) 04/10/25 17:18 Hyaline Casts 2.46 /lpf 04/10/25 17:18 Digoxin 1.8 ng/mL (0.6-1.2) H 04/10/25 15:00 All radiology interpretation(s) finalized by discharge Discharge Plan Discharge Patient Disposition: Xfer Short-Term Hosp Clinical Impression: Complication of nephrostomy, Acute UTI Condition: Stable Referrals: Trisha Urena MD [Primary Care Provider, [facility]] Print Language: Maori Coding Level of Care Code ED Popped Corn Oven Attendant for Say Muñoz
[2025-04-10 15:47] LABS: Alanine Aminotransferase 12 U/L (0-41); Albumin Level 3.6 g/dL (3.5-5.2); Alkaline Phosphatase 108 U/L (40-130); Anion Gap 16.9 (5-19); Aspartate Amino Transferase 15 U/L (0-40); Blood Urea Nitrogen 15 mg/dL (8-23); Calcium 9.2 mg/dL (8.5-10.5); Carbon Dioxide 25 mmol/L (22-29); Chloride 101 mmol/L (98-107); Creatinine Clr Calc Pharmacy 72.7889; Globulin 3.3 g/dL (1.3-4.6); Glucose 185 mg/dL (65-115); Lipase 41 U/L (13-60); Osmolality Calculated 294 mOsm/kg (285-295); Potassium 3.9 mmol/L (3.5-5.1); Sodium 139 mmol/L (136-145); Total Protein 6.9 g/dL (6.6-8.7)
[2025-04-10 16:54] LABS: Lactic Sepsis W/Reflex 2.4 mmol/L (0.5-2.2)
[2025-04-10 17:11] VITALS: BP 144/73; PULSE 73; RESP 16; O2SAT 99
[2025-04-10 17:25] LABS: Glucose Urine UA Trace (Normal); Nitrate Urine Negative (Negative); Specific Gravity, Urine 1.010 (1.005-1.030)
[2025-04-10 17:30] LABS: Add Urine Microscopic? YES
[2025-04-10] MEDS: piperacillin-tazobactam 3.375 GM in sodium chloride 0.9% (plus) 50 ML IV (17:38)
[2025-04-10 18:00] VITALS: BP 127/75; PULSE 78; RESP 16; O2SAT 99
[2025-04-10 18:22] LABS: Reflex Lactate Order REFLEX LACTIC ORDERD
[2025-04-10 19:49] LABS: Lactic Acid level (Lactate) 1.6 mmol/L (0.5-2.2)
[2025-04-10] MEDS: HYDROmorphone 0.5 MG/0.5 ML INJ IVP ×2 (20:01→23:22)
[2025-04-10 20:03] VITALS: BP 120/71; PULSE 67; RESP 17; O2SAT 98
--- NOTE | 2025-04-10 20:04 | PC.NURSE ---
1944- called to patients room for call light. pt requesting to have brief changed. per myself and Korina Chen patients rolled and cleaned and linens and breif changed. pt bilateral nephrostomys emptied with left producing approx 75 ml and right side approx 450 ml of urine drained with no difficulties.
[2025-04-10 21:27] LABS: Digoxin 1.8 ng/mL (0.6-1.2)
[2025-04-10 23:30] VITALS: BP 135/66; PULSE 66; RESP 17; O2SAT 96
== END 2025-04-10 23:30 | disposition short-term general hospital (02) ==
PROVIDERS: Emergency Provider Family Medicine; PCP Family Medicine
DX: T83.512A Infection and inflammatory reaction due to nephrostomy catheter, initial encounter (principal); X58.XXXA Exposure to other specified factors, initial encounter; E11.40 Type 2 diabetes mellitus with diabetic neuropathy, unspecified; I10 Essential (primary) hypertension
CPT/HCPCS: 36415; 74176; 80053; 80162; 81001; 83605; 83690; 85025; 87040; 87077; 87086; 87106; 87186; 96365; 96366; 96375; 99285; J1171; J2543

== ENCOUNTER 2025-06-05 22:33 | Inpatient (IN) | payer OTHER, SELFPAY ==
[2025-06-05 22:33] VITALS: BP 126/85; PULSE 82; RESP 18; TEMP 37.3; O2SAT 100; BMI 27.2
--- NOTE | 2025-06-05 22:52 | CTR_ITS ---
PROCEDURE INFORMATION: Exam: CT Abdomen And Pelvis Without Contrast Exam date and time: 06/05/2025 11:00 PM Age: 75 years old Clinical indication: Abdominal pain; Localized; Left lower quadrant (llq); Prior surgery; Surgery date: 6+ months; Surgery type: Appy. Bilateral nephrostomy; EMS arrival from [facility] for llq pain. TECHNIQUE: Imaging protocol: Computed tomography of the abdomen and pelvis without contrast. Radiation optimization: All CT scans at this facility use at least one of these dose optimization techniques: automated exposure control; mA and/or kV adjustment per patient size (includes targeted exams where dose is matched to clinical indication); or iterative reconstruction. COMPARISON: CT kidney stone [id number] 04/10/2025 3:35 PM RADIATION DOSE METRICS: Total DLP (mGy-cm): 1319.63 FINDINGS: Tubes, catheters and devices: Bilateral antegrade percutaneous nephrostomy catheter positioning is unremarkable. Liver: Normal. No mass. Gallbladder and biliary ducts: Cholelithiasis. Negative for gallbladder wall thickening. Negative for biliary system dilation. Pancreas: Normal. No ductal dilation. Spleen: Normal. No splenomegaly. Adrenal glands: Normal. No mass. Kidneys and ureters: Bilateral renal cortical thinning redemonstrated. Mild severity bilateral hydronephrosis reduced from comparison. Minimal gas present bilaterally in the proximal collecting systems. 3 mm diameter nonobstructing right inferior kidney stone. Stomach and bowel: Scattered diverticulosis coli. Moderate colonic fecal volume. Negative for bowel wall inflammatory changes. Negative for pneumatosis intestinalis. Negative for bowel obstruction. Negative for bowel perforation. Appendix: Normal appendix. Intraperitoneal space: Unremarkable. No free air. No significant fluid collection. Vasculature: Unremarkable. No abdominal aortic aneurysm. Lymph nodes: Unremarkable. No enlarged lymph nodes. Urinary bladder: Unremarkable as visualized. Reproductive: Unremarkable as visualized. Bones/joints: Extensive pre-existing degenerative changes throughout the lumbar spine. Erosive vertebral endplate changes across L3-L4 with widening of the disc space without interval change. Negative for acute fractures. Soft tissues: Unremarkable. CT/CT abdomen pelvis wo con [id number] IMPRESSION: Negative for acute abdominopelvic pathology.
--- NOTE | 2025-06-05 22:52 | W.ED.ABDPA2 ---
Documented by User: DESIREE Edwards 06/06/25 01:02 HPI - Abdominal Pain General: Chief Complaint: Abdominal Pain Stated Complaint: possible uti Time Seen by Provider: 06/05/25 22:34 History of Present Illness: Patient is a 75-year-old male with h/o prostate cancer, inability to empty bladder, ultimately bilateral nephrostomy tubes for several years, resides at [facility], frequent UTIs, presents to the emergency room with seeing green leprechaun's, sediment in his urine, and question of temperature. Patient does admit to seeing things. Denies any auditory hallucinations only visual. This has happened in the past and is typically associated with UTI and/or renal colic. He does have a history of nephrolithiasis. This has been dealt with in the past by [facility], which patient has been transferred to multiple times. Associated Symptoms: Denies chills, fever(s), nausea and vomiting Related Data Home Medications ?Medication ?Instructions ?Recorded ?Confirmed fluticasone 100 mcg-salmeterol 50 1 inh inhalation BID 10/03/21 02/24/25 mcg/dose blistr powdr for inhalation (Wixela Inhub) acetaminophen 325 mg tablet 650 mg PO Q6H PRN Pain 07/02/23 02/24/25 (Tylenol) bisacodyl 10 mg rectal suppository 10 mg KS DAILY PRN Constipation 07/02/23 02/24/25 (Dulcolax (bisacodyl)) albuterol sulfate 90 mcg/actuation 2 puff inhalation Q4H PRN Dyspnea 04/27/24 02/24/25 aerosol inhaler docusate sodium 100 mg capsule 100 mg PO BID 04/27/24 02/24/25 (Colace) furosemide 20 mg tablet 20 mg PO DAILY 04/27/24 02/24/25 atorvastatin 80 mg tablet 80 mg PO DAILY 11/26/24 02/24/25 cholecalciferol (vitamin D3) 25 25 mcg PO DAILY 11/26/24 02/24/25 mcg (1,000 unit) tablet cyanocobalamin (vitamin B-12) 1,000 mcg PO DAILY 11/26/24 02/24/25 1,000 mcg tablet dextromethorphan-guaifenesin 10 5 - 10 ml PO Q6H PRN Congestion 11/26/24 02/24/25 mg-100 mg/5 mL oral liquid digoxin 125 mcg (0.125 mg) tablet 125 mcg PO DAILY 11/26/24 02/24/25 donepezil 5 mg tablet 5 mg PO DAILY 11/26/24 02/24/25 ferrous sulfate 325 mg (65 mg 325 mg PO DAILY 11/26/24 02/24/25 iron) tablet (FeroSul) finasteride 5 mg tablet 5 mg PO DAILY 11/26/24 02/24/25 fluticasone propionate 50 1 spray intranasal DAILY 11/26/24 02/24/25 mcg/actuation nasal spray,suspension hydrocodone 7.5 mg-acetaminophen 1 tab PO Q4H PRN Pain 11/26/24 02/24/25 325 mg tablet insulin lispro 100 unit/mL See Rx Instructions .Route .COMPLEX 11/26/24 02/24/25 subcutaneous pen melatonin 1 mg tablet 1 mg PO DAILY PRN Sleep 11/26/24 02/24/25 metformin 500 mg tablet 500 mg PO DAILY 11/26/24 02/24/25 multivitamin with folic acid 400 1 tab PO DAILY 11/26/24 02/24/25 mcg tablet (Daily-Marylou (with folic acid)) omeprazole 20 mg capsule,delayed 20 mg PO DAILY 11/26/24 02/24/25 release ondansetron HCl 4 mg tablet 4 mg PO .BEFORE MEALS PRN Nausea 11/26/24 02/24/25 And Vomiting silver sulfadiazine 1 % topical See Rx Instructions .Route .COMPLEX 11/26/24 02/24/25 cream tamsulosin 0.4 mg capsule 0.4 mg PO BEDTIME 11/26/24 02/24/25 amiodarone 200 mg tablet 200 mg PO DAILY 02/24/25 02/24/25 potassium chloride 10 mEq 10 meq PO DAILY 02/24/25 02/24/25 tablet,extended release(part/cryst) (Klor-Con M) Previous Rx's ?Medication ?Instructions ?Recorded flash glucose scanning reader #1 ea 08/25/23 (FreeStyle Jimi 2 [place]) FreeStyle Jimi 2 Sensor (flash #6 ea 12/11/23 glucose sensor) blood-glucose sensor (Track G7 #3 ea 02/08/24 Sensor device) blood-glucose,science liaison,cont #1 ea 02/08/24 (Dexcom G7 Commercial Pest Control Technician) magnesium hydroxide 400 mg/5 mL 20 ml PO BID PRN constipation #355 05/16/24 oral suspension (Milk of Magnesia) mL insulin glargine 100 unit/mL (3 5 unit (0.05 mL) SUBCUT DAILY #15 12/02/24 mL) subcutaneous pen (Lantus mL Solostar U-100 Insulin) Allergies Allergy/AdvReac Type Severity Reaction Status Date / Time pollen extracts Allergy Unknown Verified 02/24/25 09:23 Review of Systems General: Reports: 10 or more systems reviewed and unremarkable except in HPI and below and ROS unobtainable due to medical condition Const: Denies: fever(s) or chills Eyes: Denies: change in vision or blurry vision ENMT: Denies: throat pain or dry mouth Card: Denies: chest pain or palpitations Resp: Denies: dyspnea or non-productive cough GI: Denies: abdominal pain, nausea or vomiting : Denies: flank pain or difficulty urinating Musc: Denies: neck pain, back pain or extremity pain Skin/Breast: Denies: rash or pruritus Neuro: Denies: headache(s), numbness in extremities or weakness in extremities Psych: Reports: visual hallucinations PFSH ED PFSH: Medical History (Updated 06/06/25 @ 00:44 by DESIREE Edwards) Yeast UTI Hematuria due to acute cystitis Mild cognitive impairment with memory loss Bacteriuria Alzheimer disease 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 mellitus History of Doppler ultrasound 08/2021 venous no DVT BLE 08/2021 arterial patent vessels, left posterior tibial may be less than 60% stenosis, left dorsalis pedis not visualized Gait instability SARS-CoV-2 positive positive test 11/17/2021 symptoms weakness, hypoglycemia, altered mental status and low grade fever Anemia Intermittent self-catheterization of bladder due to urinary retention History of sleep study 02/22 limited sleep, no apnea noted but did have nocturnal hypoxemia, recommended to use nocturnal oxygen History of electromyography 01/23 Interpretation: The study provides electrodiagnostic evidence for an axonal sensorimotor polyneuropathy based on small or absent CMAPs and SNAPs with denervation seen distally on EMG. The study is limited for evaluation of lumbar radiculopathy related to the patient's anticoagulated state. History of echocardiogram 05/2021 EF 65% History of cardiovascular stress test 05/2021 normal EKG response, perfusion study without findings of ischemia Diabetes mellitus, type II Chronic anticoagulation Taken off Xarelto secondary to hematuria BPH loc w urin obs/LUTS Obstructive pyelonephritis 09/2021 required ureteral stent placement Left ureteral calculus Diabetic foot ulcer 08/2021 - treated with I&D, antibiotics and wound care clinic management Lumbar stenosis with neurogenic claudication 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 mellitus Cervicalgia of kwwqntin-bvxpxen-csvlc region Lumbar stenosis L2/3, L3/4, L4/L5, with radiculopathy right lower extremity H/O prostate cancer Obstructive sleep apnea Refuses CPAP HTN (hypertension) previously on treatment for high blood pressure Atrial fibrillation Surgical History Status post excisional debridement 08/2021 left foot History of laminectomy 03/25 bilateral with partial facetectomies at L2-3, L3-4, L4-[address] Smith Other postprocedural status history of radiofrequency ablation for back pain x 2 Status post laser lithotripsy of ureteral calculus (11/06/21) S/P ureteral stent placement (09/2021) subsequent removal H/O esophagogastroduodenoscopy (10/30/21) 10/2021 pedunculated polyps removed from first portion of duodenum, otherwise normal History of colonoscopy (10/30/21) 11/2021 diverticulosis of sigmoid colon and internal hemorrhoids, sessile polyps removed History of back surgery S/P tonsillectomy S/P appendectomy History of pilonidal cyst Family History Grandmother Heart disease Hypertension Grandfather Hypertension MATERNAL Diabetes Mother No problems noted. Father No problems noted. 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 Physical Exam Const: COMMON NORMALS: no acute distress, average body habitus, patient oriented x3 and no limitations HENMT: COMMON NORMALS: normocephalic and atraumatic HEAD & SCALP: normocephalic and atraumatic Neck/C-Spine: COMMON NORMALS: full ROM, no lymphadenopathy, supple and no meningeal signs Lymph: LYMPHATIC: no lymphadenopathy noted Chest: COMMONS NORMALS: normal inspection of the chest and normal palpation of entire chest wall Resp: COMMON NORMALS: normal respiratory effort, No retractions and clear to auscultation bilaterally AUSCULTATION: clear to auscultation bilaterally Cardio: COMMON NORMALS: regular rate and regular rhythm RATE: regular rate RHYTHM: regular rhythm GI: COMMON NORMALS: Normal to inspection, nondistended, normoactive bowel sounds present, Soft to palpation, non-tender and No hepatosplenomegaly present PALPATION: Yes Soft to palpation and Yes No hepatosplenomegaly present : COMMON NORMALS: Yes no CVA tenderness BLADDER/KIDNEY EXAM: Yes no CVA tenderness Back/Pelvis: COMMON NORMALS: no CVA tenderness Extremity: COMMON NORMALS: normal to inspection, full ROM and capillary refill normal Neuro: COMMON NORMALS: patient oriented x3 MENINGEAL SIGNS: Yes no meningeal signs Psych: COMMON NORMALS: mental status grossly normal, Normal thought process present, cooperative, normal affect, speech normal and activity/motor behavior normal APPEARANCE: Yes grossly normal ATTITUDE: Yes calm SPEECH: Yes normal speech THOUGHT PROCESS: Normal thought process present Course Reevaluation(s): Reevaluation #1: No change at bedside. Patient is calm and oriented to events at this time Consultations: Consultation #1: Discussed with Dr. Curtis, hospitalist, that excepted admission. Vital Signs: Vital signs: Vital Signs Temperature 99.1 F 06/05/25 22:33 Pulse Rate 90 06/06/25 00:42 Respiratory Rate 16 06/06/25 00:42 Blood Pressure 130/62 06/06/25 00:42 Pulse Oximetry 95 06/06/25 00:42 Oxygen Delivery Me thod Room Air 06/05/25 22:33 MDM - Abdominal Pain Medical Decision Making Patient is a 75-year-old male with bilateral nephrostomy tubes, sediment in his urine, hallucinations, that presents to the ED. He has a longstanding history of multiple UTIs, as well as renal colic. Last biogram was reviewed, Enterococcus faecalis, however only 40,000 CFU/mL which is most likely a colonization, as well as Carolyn. This was however drug-resistant, and sensitive to penicillin, for which I added Zosyn. Will await CT of the abdomen pelvis for further decision-making. Patient does have elevation lactic acid at 2.8, WBC of 19, however his vital signs have remained stable, and he did not have obstructive uropathy. Will obtain a consultation from hospitalist for possible admission. He does not have sepsis by criteria, and does not have acute organ failure.. Updated daughter regarding admission Medical Records I reviewed the patient's medical records. Lab Data I reviewed the patient's lab results. 06/05/25 22:56 06/05/25 22:56 Labs/Radiology: Radiology Impressions Abdomen/Pelvis CT 06/05/25 22:52 IMPRESSION: Negative for acute abdominopelvic pathology. Laboratory Results WBC 19.21 10^3/uL (3.29-11.43) H 06/05/25 22:56 RBC 4.30 10^6/uL (3.85-5.65) 06/05/25 22:56 Hgb 11.90 g/dL (11.27-16.99) 06/05/25 22:56 Hct 37.2 % (37-53) 06/05/25 22:56 MCV 86.5 fl (82-101) 06/05/25 22:56 MCH 27.7 pg (27-33) 06/05/25 22:56 MCHC 32.0 g/dL (30-55) 06/05/25 22:56 RDW 15.5 % (12.1-15.1) H 06/05/25 22:56 Plt Count 370 10^3/cmm (157-399) 06/05/25 22:56 MPV 9.9 fL (7.4-10.4) 06/05/25 22:56 Neut % (Auto) 82.2 % 06/05/25 22:56 Lymph % (Auto) 8.7 % 06/05/25 22:56 [place] % (Auto) 7.0 % 06/05/25 22:56 Eos % (Auto) 1.1 % 06/05/25 22:56 Baso % (Auto) 0.6 % 06/05/25 22:56 Neut # (Auto) 15.79 10^3/uL (1.8-7.7) H 06/05/25 22:56 Lymph # (Auto) 1.7 10^3/uL (0.8-4.8) 06/05/25 22:56 [place]inn # (Auto) 1.4 10^3/uL (0.2-0.9) H 06/05/25 22:56 Eos # (Auto) 0.2 10^3/uL (0.0-0.8) 06/05/25 22:56 Baso # (Auto) 0.1 10^3/uL (0.0-0.1) 06/05/25 22:56 Nucleated RBC % (auto) 0 % 06/05/25 22:56 Nucleated RBCs # 0.0 /100WBC 06/05/25 22:56 Sodium 136 mmol/L (136-145) 06/05/25 22:56 Potassium 4.0 mmol/L (3.5-5.1) 06/05/25 22:56 Chloride 98 mmol/L (98-107) 06/05/25 22:56 Carbon Dioxide 24 mmol/L (22-29) 06/05/25 22:56 Anion Gap 18.0 (5-19) 06/05/25 22:56 BUN 18 mg/dL (8-23) 06/05/25 22:56 Creatinine 1.2 mg/dL (0.7-1.2) 06/05/25 22:56 GFR Calculation Not Reportable 06/05/25 22:56 Glucose 167 mg/dL (65-115) H 06/05/25 22:56 Calculated Osmolality 288 mOsm/kg (285-295) 06/05/25 22:56 Lactic Acid 2.8 mmol/L (0.5-2.2) H 06/05/25 22:56 Calcium 9.1 mg/dL (8.5-10.5) 06/05/25 22:56 Total Bilirubin 1.0 mg/dL (0.15-1.2) 06/05/25 22:56 AST 16 U/L (0-40) 06/05/25 22:56 ALT 15 U/L (0-41) 06/05/25 22:56 Alkaline Phosphatase 119 U/L (40-130) 06/05/25 22:56 C-Reactive Protein 99.3 mg/L (0.0-4.9) H 06/05/25 22:56 Total Protein 7.1 g/dL (6.6-8.7) 06/05/25 22:56 Albumin 3.3 g/dL (3.5-5.2) L 06/05/25 22:56 Globulin 3.8 g/dL (1.3-4.6) 06/05/25 22:56 Urine Color Yellow (Yellow) 06/06/25 00:01 Urine Appearance Turbid (CLEAR) A 06/06/25 00:01 Urine pH 6.5 (5-7) 06/06/25 00:01 Ur Specific Baldwin 1.015 (1.005-1.030) 06/06/25 00:01 Urine Protein 2+ (Negative) A 06/06/25 00:01 Urine Glucose (UA) Negative (Normal) 06/06/25 00:01 Urine Ketones Trace (Negative) 06/06/25 00:01 Urine Blood 3+ (Negative) A 06/06/25 00:01 Urine Nitrate Positive (Negative) A 06/06/25 00:01 Urine Bilirubin Negative (Negative) 06/06/25 00:01 Urine Urobilinogen 1.0 mg/dL (Negative) 06/06/25 00:01 Ur Leukocyte Esterase 3+ (Negative) A 06/06/25 00:01 Urine RBC >100 /hpf (0-2) H 06/06/25 00:01 Urine WBC >100 /hpf (0-5) H 06/06/25 00:01 Ur Squamous Epith Cells 0-5 /hpf (0-5) 06/06/25 00:01 Amorphous Sediment Not Reportable 06/06/25 00:01 Urine Bacteria 4+ /hpf (NONE) H 06/06/25 00:01 Hyaline Casts 63.22 /lpf 06/06/25 00:01 All radiology interpretation(s) finalized by discharge Discharge Plan Discharge Patient Disposition: Admitted As Inpatient Clinical Impression: Acute encephalopathy, Pyuria, Acute lactic acidosis Condition: Stable Coding Level of Care Code ED Media Analytics Manager for Chg Fwd Documented by User: Fermin Mijares DO 06/06/25 01:38 HPI - Abdominal Pain General: Chief Complaint: Abdominal Pain Stated Complaint: possible uti Time Seen by Provider: 06/05/25 22:34 Related Data Home Medications ?Medication ?Instructions ?Recorded ?Confirmed fluticasone 100 mcg-salmeterol 50 1 inh inhalation BID 10/03/21 02/24/25 mcg/dose blistr powdr for inhalation (Wixela Inhub) acetaminophen 325 mg tablet 650 mg PO Q6H PRN Pain 07/02/23 02/24/25 (Tylenol) bisacodyl 10 mg rectal suppository 10 mg KS DAILY PRN Constipation 07/02/23 02/24/25 (Dulcolax (bisacodyl)) albuterol sulfate 90 mcg/actuation 2 puff inhalation Q4H PRN Dyspnea 04/27/24 02/24/25 aerosol inhaler docusate sodium 100 mg capsule 100 mg PO BID 04/27/24 02/24/25 (Colace) furosemide 20 mg tablet 20 mg PO DAILY 04/27/24 02/24/25 atorvastatin 80 mg tablet 80 mg PO DAILY 11/26/24 02/24/25 cholecalciferol (vitamin D3) 25 25 mcg PO DAILY 11/26/24 02/24/25 mcg (1,000 unit) tablet cyanocobalamin (vitamin B-12) 1,000 mcg PO DAILY 11/26/24 02/24/25 1,000 mcg tablet dextromethorphan-guaifenesin 10 5 - 10 ml PO Q6H PRN Congestion 11/26/24 02/24/25 mg-100 mg/5 mL oral liquid digoxin 125 mcg (0.125 mg) tablet 125 mcg PO DAILY 11/26/24 02/24/25 donepezil 5 mg tablet 5 mg PO DAILY 11/26/24 02/24/25 ferrous sulfate 325 mg (65 mg 325 mg PO DAILY 11/26/24 02/24/25 iron) tablet (FeroSul) finasteride 5 mg tablet 5 mg PO DAILY 11/26/24 02/24/25 fluticasone propionate 50 1 spray intranasal DAILY 11/26/24 02/24/25 mcg/actuation nasal spray,suspension hydrocodone 7.5 mg-acetaminophen 1 tab PO Q4H PRN Pain 11/26/24 02/24/25 325 mg tablet insulin lispro 100 unit/mL See Rx Instructions .Route .COMPLEX 11/26/24 02/24/25 subcutaneous pen melatonin 1 mg tablet 1 mg PO DAILY PRN Sleep 11/26/24 02/24/25 metformin 500 mg tablet 500 mg PO DAILY 11/26/24 02/24/25 multivitamin with folic acid 400 1 tab PO DAILY 11/26/24 02/24/25 mcg tablet (Daily-Marylou (with folic acid)) omeprazole 20 mg capsule,delayed 20 mg PO DAILY 11/26/24 02/24/25 release ondansetron HCl 4 mg tablet 4 mg PO .BEFORE MEALS PRN Nausea 11/26/24 02/24/25 And Vomiting silver sulfadiazine 1 % topical See Rx Instructions .Route .COMPLEX 11/26/24 02/24/25 cream tamsulosin 0.4 mg capsule 0.4 mg PO BEDTIME 11/26/24 02/24/25 amiodarone 200 mg tablet 200 mg PO DAILY 02/24/25 02/24/25 potassium chloride 10 mEq 10 meq PO DAILY 02/24/25 02/24/25 tablet,extended release(part/cryst) (Klor-Con M) Previous Rx's ?Medication ?Instructions ?Recorded flash glucose scanning reader #1 ea 08/25/23 (FreeStyle Jimi 2 [place]) FreeStyle Jimi 2 Sensor (flash #6 ea 12/11/23 glucose sensor) blood-glucose sensor (Dexcom G7 #3 ea 02/08/24 Sensor device) blood-glucose,science liaison,cont #1 ea 02/08/24 (Dexcom G7 Commercial Pest Control Technician) magnesium hydroxide 400 mg/5 mL 20 ml PO BID PRN constipation #355 05/16/24 oral suspension (Milk of Magnesia) mL insulin glargine 100 unit/mL (3 5 unit (0.05 mL) SUBCUT DAILY #15 12/02/24 mL) subcutaneous pen (Lantus mL Solostar U-100 Insulin) Allergies Allergy/AdvReac Type Severity Reaction Status Date / Time pollen extracts Allergy Unknown Verified 02/24/25 09:23 [facility] Medical History (Updated 06/06/25 @ 00:44 by DESIREE Edwards) Yeast UTI Hematuria due to acute cystitis Mild cognitive impairment with memory loss Bacteriuria Alzheimer disease 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 mellitus History of Doppler ultrasound 08/2021 venous no DVT BLE 08/2021 arterial patent vessels, left posterior tibial may be less than 60% stenosis, left dorsalis pedis not visualized Gait instability SARS-CoV-2 positive positive test 11/17/2021 symptoms weakness, hypoglycemia, altered mental status and low grade fever Anemia Intermittent self-catheterization of bladder due to urinary retention History of sleep study 02/22 limited sleep, no apnea noted but did have nocturnal hypoxemia, recommended to use nocturnal oxygen History of electromyography 01/23 Interpretation: The study provides electrodiagnostic evidence for an axonal sensorimotor polyneuropathy based on small or absent CMAPs and SNAPs with denervation seen distally on EMG. The study is limited for evaluation of lumbar radiculopathy related to the patient's anticoagulated state. History of echocardiogram 05/2021 EF 65% History of cardiovascular stress test 05/2021 normal EKG response, perfusion study without findings of ischemia Diabetes mellitus, type II Chronic anticoagulation Taken off Xarelto secondary to hematuria BPH loc w urin obs/LUTS Obstructive pyelonephritis 09/2021 required ureteral stent placement Left ureteral calculus Diabetic foot ulcer 08/2021 - treated with I&D, antibiotics and wound care clinic management Lumbar stenosis with neurogenic claudication 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 mellitus Cervicalgia of osbqxady-qlbvcsx-cqyap region Lumbar stenosis L2/3, L3/4, L4/L5, with radiculopathy right lower extremity H/O prostate cancer Obstructive sleep apnea Refuses CPAP HTN (hypertension) previously on treatment for high blood pressure Atrial fibrillation Surgical History Status post excisional debridement 08/2021 left foot History of laminectomy 03/25 bilateral with partial facetectomies at L2-3, L3-4, L4-[address] Smith Other postprocedural status history of radiofrequency ablation for back pain x 2 Status post laser lithotripsy of ureteral calculus (11/06/21) S/P ureteral stent placement (09/2021) subsequent removal H/O esophagogastroduodenoscopy (10/30/21) 10/2021 pedunculated polyps removed from first portion of duodenum, otherwise normal History of colonoscopy (10/30/21) 11/2021 diverticulosis of sigmoid colon and internal hemorrhoids, sessile polyps removed History of back surgery S/P tonsillectomy S/P appendectomy History of pilonidal cyst Family History Grandmother Heart disease Hypertension Grandfather Hypertension MATERNAL Diabetes Mother No problems noted. Father No problems noted. 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 He has a longstanding history of multiple UTIs, as well as renal colic. Last biogram was reviewed, Enterococcus faecalis, however only 40,000 CFU/mL which is most likely a colonization, as well as Carolyn. This was however drug-resistant, and sensitive to penicillin, for which I added Zosyn. Will await CT of the abdomen pelvis for further decision-making. Patient does have elevation lactic acid at 2.8, WBC of 19, however his vital signs have remained stable, and he did not have obstructive uropathy. Will obtain a consultation from hospitalist for possible admission. He does not have sepsis by criteria, and does not have acute organ failure.. Updated daughter regarding admission Chart reviewed and patient discussed with midlevel. Agree with assessment and plan. Lab Data 06/05/25 22:56 06/05/25 22:56 Labs/Radiology: Radiology Impressions Abdomen/Pelvis CT 06/05/25 22:52 IMPRESSION: Negative for acute abdominopelvic pathology. Laboratory Results WBC 19.21 10^3/uL (3.29-11.43) H 06/05/25 22:56 RBC 4.30 10^6/uL (3.85-5.65) 06/05/25 22:56 Hgb 11.90 g/dL (11.27-16.99) 06/05/25 22:56 Hct 37.2 % (37-53) 06/05/25 22:56 MCV 86.5 fl (82-101) 06/05/25 22:56 MCH 27.7 pg (27-33) 06/05/25 22:56 MCHC 32.0 g/dL (30-55) 06/05/25 22:56 RDW 15.5 % (12.1-15.1) H 06/05/25 22:56 Plt Count 370 10^3/cmm (157-399) 06/05/25 22:56 MPV 9.9 fL (7.4-10.4) 06/05/25 22:56 Neut % (Auto) 82.2 % 06/05/25 22:56 Lymph % (Auto) 8.7 % 06/05/25 22:56 [place] % (Auto) 7.0 % 06/05/25 22:56 Eos % (Auto) 1.1 % 06/05/25 22:56 Baso % (Auto) 0.6 % 06/05/25 22:56 Neut # (Auto) 15.79 10^3/uL (1.8-7.7) H 06/05/25 22:56 Lymph # (Auto) 1.7 10^3/uL (0.8-4.8) 06/05/25 22:56 [place] # (Auto) 1.4 10^3/uL (0.2-0.9) H 06/05/25 22:56 Eos # (Auto) 0.2 10^3/uL (0.0-0.8) 06/05/25 22:56 Baso # (Auto) 0.1 10^3/uL (0.0-0.1) 06/05/25 22:56 Nucleated RBC % (auto) 0 % 06/05/25 22:56 Nucleated RBCs # 0.0 /100WBC 06/05/25 22:56 Sodium 136 mmol/L (136-145) 06/05/25 22:56 Potassium 4.0 mmol/L (3.5-5.1) 06/05/25 22:56 Chloride 98 mmol/L (98-107) 06/05/25 22:56 Carbon Dioxide 24 mmol/L (22-29) 06/05/25 22:56 Anion Gap 18.0 (5-19) 06/05/25 22:56 BUN 18 mg/dL (8-23) 06/05/25 22:56 Creatinine 1.2 mg/dL (0.7-1.2) 06/05/25 22:56 GFR Calculation Not Reportable 06/05/25 22:56 Glucose 167 mg/dL (65-115) H 06/05/25 22:56 Calculated Osmolality 288 mOsm/kg (285-295) 06/05/25 22:56 Lactic Acid 2.8 mmol/L (0.5-2.2) H 06/05/25 22:56 Calcium 9.1 mg/dL (8.5-10.5) 06/05/25 22:56 Total Bilirubin 1.0 mg/dL (0.15-1.2) 06/05/25 22:56 AST 16 U/L (0-40) 06/05/25 22:56 ALT 15 U/L (0-41) 06/05/25 22:56 Alkaline Phosphatase 119 U/L (40-130) 06/05/25 22:56 C-Reactive Protein 99.3 mg/L (0.0-4.9) H 06/05/25 22:56 Total Protein 7.1 g/dL (6.6-8.7) 06/05/25 22:56 Albumin 3.3 g/dL (3.5-5.2) L 06/05/25 22:56 Globulin 3.8 g/dL (1.3-4.6) 06/05/25 22:56 Urine Color Yellow (Yellow) 06/06/25 00:01 Urine Appearance Turbid (CLEAR) A 06/06/25 00:01 Urine pH 6.5 (5-7) 06/06/25 00:01 Ur Specific [place] 1.015 (1.005-1.030) 06/06/25 00: Urine Protein 2+ (Negative) A 06/06/25 00: Urine Glucose (UA) Negative (Normal) 06/06/25 00: Urine Ketones Trace (Negative) 06/06/25 00: Urine Blood 3+ (Negative) A 06/06/25 00: Urine Nitrate Positive (Negative) A 06/06/25 00: Urine Bilirubin Negative (Negative) 06/06/25 00: Urine Urobilinogen 1.0 mg/dL (Negative) 06/06/25 00: Ur Leukocyte Esterase 3+ (Negative) A 06/06/25 00: Urine RBC >100 /hpf (0-2) H 06/06/25 00:01 Urine WBC >100 /hpf (0-5) H 06/06/25 00: Ur Squamous Epith Cells 0-5 /hpf (0-5) 06/06/25 00: Amorphous Sediment Not Reportable 06/06/25 00: Urine Bacteria 4+ /hpf (NONE) H 06/06/25 00: Hyaline Casts 63.22 /lpf 06/06/25 00: Discharge Plan Discharge Patient Disposition: Admitted As Inpatient Clinical Impression: Acute encephalopathy, Pyuria, Acute lactic acidosis Condition: Stable Coding Level of Care Code ED [employer] for [employer]
--- OUTSIDE RECORDS SUMMARY | 2025-06-05 22:57 | XMS_ITS | Continuity of Care Document ---
Author Organization [facility] ([facility]) Address [address] [place] [id number] Insurance Providers Payer Plan Claims Address Claims Phone Policy Number Group Number Relation Employer Guarantor Name Guarantor Guarantor Address Guarantor Phone MEDICA RE MEDIC ARE tel:[phone] [employer] MEDICA RE ADVANT AGE [facility] ARE MEDIC ARE ADVAN TAGE [address] [address], [place] [address] tel:[phone] TRICAR E [place] RE [address] [address] [id number] Problems Condition ICD9 code ICD10 code SNOMED code Start Date End Date S tatus Paroxysmal atrial fibrillation I48.0 05/27/2023 Active [facility] (current) use of anticoagulants Z79.01 06/14/2024 Active [...] obstructive pulmonary disease, unspecified J44.9 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 05/27/2023 [...] (current) use of insulin Z79.4 05/27/2023 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 Z79.84 [...] 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 11/18/2024 Active 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 11/18/2024 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 Z79.84 11/18/2024 Active Hypertensive heart and chronic kidney disease with heart failure and stage 1 through stage 4 chronic kidney disease, or unspecified chronic kidney disease I13.0 11/18/2024 Active Heart failure, unspecified I50.9 11/18/2024 Active Chronic kidney disease, stage 3 unspecified N18.30 11/18/2024 Activ e Chronic obstructive pulmonary disease, unspecified J44.9 11/18/2024 Active [facility] (current) use 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 Z79.51 11/18/2024 [...] Active Anxiety disorder, unspecified F41.9 12/28/2024 Active [facility] (current) use of antibiotics Z79.2 02/02/2025 Active Results Test Result Date/Time Value / Unit Interp. Refere nce Range Blood chemistry[[id number]] Glucose [Mass/volume] in Serum or Plasma [2345-7] 02/06/2025 05:39 PM 204 mg/dL N Blood chemistry[] Glucose [Mass/volume] in Serum or Plasma [5-7] 02/06/2025 09:47 AM 199 mg/dL N Blood chemistry[[id number]] Glucose [Mass/volume] in Serum or Plasma [2345-7] 02/06/2025 01:18 PM 147 mg/dL N Blood chemistry[[id number]] Glucose [Mass/volume] in Serum or Plasma [2345-7] 02/05/2025 01:07 PM 264 mg/dL N Blood chemistry[[id number]] Glucose [Mass/volume] in Serum or Plasma [2345-7] 02/05/2025 03:58 PM 251 mg/dL N Blood chemistry[[id number]] Glucose [Mass/volume] in Serum or Plasma [2345-7] 02/05/2025 09:28 AM 231 mg/dL N Blood chemistry[[id number]] Glucose [Mass/volume] in Serum or Plasma [2345-7] 02/05/2025 11:24 AM 207 mg/dL N Blood chemistry[[id number]] Glucose [Mass/volume] in Serum or Plasma [2345-7] 02/04/2025 12:58 PM 255 mg/dL N Blood chemistry[[id number]] Glucose [Mass/volume] in Serum or Plasma [2345-7] 02/04/2025 04:34 PM 280 mg/dL N Blood chemistry[[id number]] Glucose [Mass/volume] in Serum or Plasma [2345-7] 02/04/2025 09:16 AM 252 mg/dL N Blood chemistry[[id number]] Glucose [Mass/volume] in Serum or Plasma [2345-7] 02/04/2025 11:47 AM 177 mg/dL N Blood chemistry[[id number]] Glucose [Mass/volume] in Serum or Plasma [2345-7] 02/03/2025 12:37 PM 274 mg/dL N Blood chemistry[[id number]] Glucose [Mass/volume] in Serum or Plasma [2345-7] 02/03/2025 04:21 PM 265 mg/dL N Blood chemistry[[id number]] Glucose [Mass/volume] in Serum or Plasma [2345-7] 02/03/2025 09:29 AM 262 mg/dL N Blood chemistry[[id number]] Glucose [Mass/volume] in Serum or Plasma [2345-7] 02/03/2025 11:12 AM 263 mg/dL N Blood chemistry[[id number]] Glucose [Mass/volume] in Serum or Plasma [2345-7] 02/02/2025 01:06 PM 279 mg/dL N Blood chemistry[[id number]] Glucose [Mass/volume] in Serum or Plasma [2345-7] 02/02/2025 04:15 PM 229 mg/dL N Blood chemistry[[id number]] Glucose [Mass/volume] in Serum or Plasma [2345-7] 02/02/2025 09:47 AM 306 mg/dL N Blood chemistry[[id number]] Glucose [Mass/volume] in Serum or Plasma [2345-7] 02/02/2025 11:22 AM 208 mg/dL N Blood chemistry[[id number]] Glucose [Mass/volume] in Serum or Plasma [2345-7] 02/01/2025 12:17 PM 223 mg/dL N Blood chemistry[[id number]] Glucose [Mass/volume] in Serum or Plasma [2345-7] 02/01/2025 04:44 PM 268 mg/dL N Blood chemistry[[id number]] Glucose [Mass/volume] in Serum or Plasma [2345-7] 02/01/2025 11:03 AM 212 mg/dL N Blood chemistry[[id number]] Glucose [Mass/volume] in Serum or Plasma [2345-7] 01/31/2025 02:13 PM 243 mg/dL N Blood chemistry[[id number]] Glucose [Mass/volume] in Serum or Plasma [2345-7] 01/31/2025 04:50 PM 270 mg/dL N Blood chemistry[[id number]] Glucose [Mass/volume] in Serum or Plasma [2345-7] 01/31/2025 09:30 AM 252 mg/dL N Blood chemistry[[id number]] Glucose [Mass/volume] in Serum or Plasma [2345-7] 01/31/2025 12:47 PM 182 mg/dL N Blood chemistry[[id number]] Glucose [Mass/volume] in Serum or Plasma [2345-7] 01/31/2025 08:01 AM 196 mg/dL N Blood chemistry[[id number]] Glucose [Mass/volume] in Serum or Plasma [2345-7] 01/30/2025 04:31 PM 230 mg/dL N Blood chemistry[[id number]] Glucose [Mass/volume] in Serum or Plasma [2345-7] 01/30/2025 09:23 AM 243 mg/dL N Blood chemistry[[id number]] Glucose [Mass/volume] in Serum or Plasma [2345-7] 01/30/2025 12:05 PM 213 mg/dL N Blood chemistry[[id number]] Glucose [Mass/volume] in Serum or Plasma [2345-7] 01/29/2025 01:49 PM 278 mg/dL N Blood chemistry[[id number]] Glucose [Mass/volume] in Serum or Plasma [2345-7] 01/29/2025 10:40 AM 201 mg/dL N Blood chemistry[[id number]] Glucose [Mass/volume] in Serum or Plasma [2345-7] 01/29/2025 05:07 PM 287 mg/dL N Blood chemistry[[id number]] Glucose [Mass/volume] in Serum or Plasma [2345-7] 01/29/2025 01:36 PM 199 mg/dL N Blood chemistry[[id number]] Glucose [Mass/volume] in Serum or Plasma [2345-7] 01/28/2025 02:28 PM 204 mg/dL N Blood chemistry[[id number]] Glucose [Mass/volume] in Serum or Plasma [2345-7] 01/28/2025 04:35 PM 293 mg/dL N Blood chemistry[[id number]] Glucose [Mass/volume] in Serum or Plasma [2345-7] 01/28/2025 10:07 AM 232 mg/dL N Blood chemistry[[id number]] Glucose [Mass/volume] in Serum or Plasma [2345-7] 01/28/2025 01:30 PM 231 mg/dL N Blood chemistry[[id number]] Glucose [Mass/volume] in Serum or Plasma [2345-7] 01/27/2025 01:57 PM 289 mg/dL N Blood chemistry[[id number]] Glucose [Mass/volume] in Serum or Plasma [2345-7] 01/27/2025 05:11 PM 320 mg/dL N Blood chemistry[[id number]] Glucose [Mass/volume] in Serum or Plasma [2345-7] 01/27/2025 09:50 AM 211 mg/dL N Blood chemistry[[id number]] Glucose [Mass/volume] in Serum or Plasma [2345-7] 01/27/2025 12:50 PM 256 mg/dL N Blood chemistry[[id number]] Glucose [Mass/volume] in Serum or Plasma [2345-7] 01/26/2025 12:40 PM 292 mg/dL N Blood chemistry[[id number]] Glucose [Mass/volume] in Serum or Plasma [2345-7] 01/26/2025 04:26 PM 262 mg/dL N Blood chemistry[[id number]] Glucose [Mass/volume] in Serum or Plasma [2345-7] 01/26/2025 09:09 AM 263 mg/dL N Blood chemistry[[id number]] Glucose [Mass/volume] in Serum or Plasma [2345-7] 01/26/2025 11:30 AM 232 mg/dL N Blood chemistry[[id number]] Glucose [Mass/volume] in Serum or Plasma [2345-7] 01/25/2025 02:51 PM 261 mg/dL N Blood chemistry[[id number]] Glucose [Mass/volume] in Serum or Plasma [2345-7] 01/25/2025 04:20 PM 290 mg/dL N Blood chemistry[[id number]] Glucose [Mass/volume] in Serum or Plasma [2345-7] 01/25/2025 09:17 AM 250 mg/dL N Blood chemistry[[id number]] Glucose [Mass/volume] in Serum or Plasma [2345-7] 01/25/2025 11:24 AM 286 mg/dL N Blood chemistry[[id number]] Glucose [Mass/volume] in Serum or Plasma [2345-7] 01/24/2025 12:59 PM 232 mg/dL N Blood chemistry[[id number]] Glucose [Mass/volume] in Serum or Plasma [2345-7] 01/24/2025 04:09 PM 220 mg/dL N Blood chemistry[[id number]] Glucose [Mass/volume] in Serum or Plasma [2345-7] 01/24/2025 09:13 AM 236 mg/dL N Blood chemistry[[id number]] Glucose [Mass/volume] in Serum or Plasma [2345-7] 01/24/2025 12:02 PM 200 mg/dL N Blood chemistry[[id number]] Glucose [Mass/volume] in Serum or Plasma [2345-7] 01/23/2025 11:57 AM 235 mg/dL N Blood chemistry[[id number]] Glucose [Mass/volume] in Serum or Plasma [2345-7] 01/23/2025 04:32 PM 204 mg/dL N Blood chemistry[[id number]] Glucose [Mass/volume] in Serum or Plasma [2345-7] 01/23/2025 09:27 AM 193 mg/dL N Blood chemistry[[id number]] Glucose [Mass/volume] in Serum or Plasma [2345-7] 01/23/2025 12:33 PM 199 mg/dL N Blood chemistry[[id number]] Glucose [Mass/volume] in Serum or Plasma [2345-7] 01/22/2025 01:42 PM 180 mg/dL N Blood chemistry[[id number]] Glucose [Mass/volume] in Serum or Plasma [2345-7] 01/22/2025 04:08 PM 246 mg/dL N Blood chemistry[[id number]] Glucose [Mass/volume] in Serum or Plasma [2345-7] 01/22/2025 09:01 AM 193 mg/dL N Blood chemistry[[id number]] Glucose [Mass/volume] in Serum or Plasma [2345-7] 01/22/2025 11:26 AM 194 mg/dL N Blood chemistry[[id number]] Glucose [Mass/volume] in Serum or Plasma [2345-7] 01/21/2025 01:27 PM 226 mg/dL N Blood chemistry[[id number]] Glucose [Mass/volume] in Serum or Plasma [2345-7] 01/21/2025 04:16 PM 212 mg/dL N Blood chemistry[[id number]] Glucose [Mass/volume] in Serum or Plasma [2345-7] 01/21/2025 09:12 AM 187 mg/dL N Blood chemistry[[id number]] Glucose [Mass/volume] in Serum or Plasma [2345-7] 01/21/2025 11:24 AM 181 mg/dL N Blood chemistry[[id number]] Glucose [Mass/volume] in Serum or Plasma [2345-7] 01/20/2025 01:15 PM 209 mg/dL N Blood chemistry[[id number]] Glucose [Mass/volume] in Serum or Plasma [2345-7] 01/20/2025 04:17 PM 250 mg/dL N Blood chemistry[[id number]] Glucose [Mass/volume] in Serum or Plasma [2345-7] 01/20/2025 09:23 AM 228 mg/dL N Blood chemistry[[id number]] Glucose [Mass/volume] in Serum or Plasma [2345-7] 01/20/2025 11:38 AM 179 mg/dL N Blood chemistry[[id number]] Glucose [Mass/volume] in Serum or Plasma [2345-7] 01/19/2025 01:30 PM 335 mg/dL N Blood chemistry[[id number]] Glucose [Mass/volume] in Serum or Plasma [2345-7] 01/19/2025 04:32 PM 222 mg/dL N Blood chemistry[[id number]] Glucose [Mass/volume] in Serum or Plasma [2345-7] 01/19/2025 09:24 AM 284 mg/dL N Blood chemistry[[id number]] Glucose [Mass/volume] in Serum or Plasma [2345-7] 01/19/2025 11:36 AM 166 mg/dL N Blood chemistry[[id number]] Glucose [Mass/volume] in Serum or Plasma [2345-7] 01/18/2025 03:56 PM 194 mg/dL N Blood chemistry[[id number]] Glucose [Mass/volume] in Serum or Plasma [2345-7] 01/18/2025 05:21 PM 178 mg/dL N Blood chemistry[[id number]] Glucose [Mass/volume] in Serum or Plasma [2345-7] 01/18/2025 09:43 AM 183 mg/dL N Blood chemistry[[id number]] Glucose [Mass/volume] in Serum or Plasma [2345-7] 01/18/2025 11:25 AM 156 mg/dL N Blood chemistry[[id number]] Glucose [Mass/volume] in Serum or Plasma [2345-7] 01/17/2025 01:33 PM 169 mg/dL N Blood chemistry[[id number]] Glucose [Mass/volume] in Serum or Plasma [2345-7] 01/17/2025 04:53 PM 200 mg/dL N Blood chemistry[[id number]] Glucose [Mass/volume] in Serum or Plasma [2345-7] 01/17/2025 09:01 AM 229 mg/dL N Blood chemistry[[id number]] Glucose [Mass/volume] in Serum or Plasma [2345-7] 01/17/2025 01:40 PM 180 mg/dL N Blood chemistry[[id number]] Glucose [Mass/volume] in Serum or Plasma [2345-7] 01/16/2025 11:40 AM 173 mg/dL N Blood chemistry[[id number]] Glucose [Mass/volume] in Serum or Plasma [2345-7] 01/16/2025 05:58 PM 198 mg/dL N Blood chemistry[[id number]] Glucose [Mass/volume] in Serum or Plasma [2345-7] 01/16/2025 09:41 AM 199 mg/dL N Blood chemistry[[id number]] Glucose [Mass/volume] in Serum or Plasma [2345-7] 01/16/2025 12:20 PM 187 mg/dL N Blood chemistry[[id number]] Glucose [Mass/volume] in Serum or Plasma [2345-7] 01/15/2025 01:57 PM 171 mg/dL N Blood chemistry[[id number]] Glucose [Mass/volume] in Serum or Plasma [2345-7] 01/15/2025 04:33 PM 220 mg/dL N Blood chemistry[[id number]] Glucose [Mass/volume] in Serum or Plasma [2345-7] 01/15/2025 09:24 AM 204 mg/dL N Blood chemistry[[id number]] Glucose [Mass/volume] in Serum or Plasma [2345-7] 01/15/2025 11:49 AM 170 mg/dL N Blood chemistry[[id number]] Glucose [Mass/volume] in Serum or Plasma [2345-7] 01/14/2025 02:42 PM 174 mg/dL N Blood chemistry[[id number]] Glucose [Mass/volume] in Serum or Plasma [2345-7] 01/14/2025 03:57 PM 233 mg/dL N Blood chemistry[[id number]] Glucose [Mass/volume] in Serum or Plasma [2345-7] 01/14/2025 09:21 AM 232 mg/dL N Blood chemistry[[id number]] Glucose [Mass/volume] in Serum or Plasma [2345-7] 01/14/2025 12:00 PM 126 mg/dL N Blood chemistry[[id number]] Glucose [Mass/volume] in Serum or Plasma [2345-7] 01/13/2025 04:03 PM 151 mg/dL N Blood chemistry[[id number]] Glucose [Mass/volume] in Serum or Plasma [2345-7] 01/13/2025 04:04 PM 233 mg/dL N Blood chemistry[[id number]] Glucose [Mass/volume] in Serum or Plasma [2345-7] 01/13/2025 09:33 AM 166 mg/dL N Blood chemistry[[id number]] Glucose [Mass/volume] in Serum or Plasma [2345-7] 01/13/2025 12:55 PM 179 mg/dL N Blood chemistry[[id number]] Glucose [Mass/volume] in Serum or Plasma [2345-7] 01/12/2025 01:41 PM 271 mg/dL N Blood chemistry[[id number]] Glucose [Mass/volume] in Serum or Plasma [2345-7] 01/12/2025 04:28 PM 239 mg/dL N Blood chemistry[[id number]] Glucose [Mass/volume] in Serum or Plasma [2345-7] 01/12/2025 09:00 AM 248 mg/dL N Blood chemistry[[id number]] Glucose [Mass/volume] in Serum or Plasma [2345-7] 01/12/2025 11:26 AM 237 mg/dL N Blood chemistry[[id number]] Glucose [Mass/volume] in Serum or Plasma [2345-7] 01/11/2025 01:44 PM 217 mg/dL N Blood chemistry[[id number]] Glucose [Mass/volume] in Serum or Plasma [2345-7] 01/11/2025 03:59 PM 312 mg/dL N Blood chemistry[[id number]] Glucose [Mass/volume] in Serum or Plasma [2345-7] 01/11/2025 09:09 AM 250 mg/dL N Blood chemistry[[id number]] Glucose [Mass/volume] in Serum or Plasma [2345-7] 01/11/2025 11:35 AM 243 mg/dL N Blood chemistry[[id number]] Glucose [Mass/volume] in Serum or Plasma [2345-7] 01/10/2025 01:11 PM 263 mg/dL N Blood chemistry[[id number]] Glucose [Mass/volume] in Serum or Plasma [2345-7] 01/10/2025 04:07 PM 311 mg/dL N Blood chemistry[[id number]] Glucose [Mass/volume] in Serum or Plasma [2345-7] 01/10/2025 09:31 AM 322 mg/dL N Blood chemistry[[id number]] Glucose [Mass/volume] in Serum or Plasma [2345-7] 01/10/2025 11:30 AM 252 mg/dL N Blood chemistry[[id number]] Glucose [Mass/volume] in Serum or Plasma [2345-7] 01/09/2025 03:34 PM 323 mg/dL N Blood chemistry[[id number]] Glucose [Mass/volume] in Serum or Plasma [2345-7] 01/09/2025 10:48 AM 359 mg/dL N Blood chemistry[[id number]] Glucose [Mass/volume] in Serum or Plasma [2345-7] 01/09/2025 04:56 PM 332 mg/dL N Blood chemistry[[id number]] Glucose [Mass/volume] in Serum or Plasma [2345-7] 01/09/2025 12:39 PM 242 mg/dL N Blood chemistry[[id number]] Glucose [Mass/volume] in Serum or Plasma [2345-7] 01/08/2025 01:51 PM 217 mg/dL N Blood chemistry[[id number]] Glucose [Mass/volume] in Serum or Plasma [2345-7] 01/08/2025 04:12 PM 234 mg/dL N Blood chemistry[[id number]] Glucose [Mass/volume] in Serum or Plasma [2345-7] 01/08/2025 09:05 AM 283 mg/dL N Blood chemistry[[id number]] Glucose [Mass/volume] in Serum or Plasma [2345-7] 01/08/2025 11:37 AM 210 mg/dL N Blood chemistry[[id number]] Glucose [Mass/volume] in Serum or Plasma [2345-7] 01/07/2025 02:34 PM 241 mg/dL N Blood chemistry[[id number]] Glucose [Mass/volume] in Serum or Plasma [2345-7] 01/07/2025 04:09 PM 213 mg/dL N Blood chemistry[[id number]] Glucose [Mass/volume] in Serum or Plasma [2345-7] 01/07/2025 09:13 AM 267 mg/dL N Blood chemistry[[id number]] Glucose [Mass/volume] in Serum or Plasma [2345-7] 01/06/2025 04:18 PM 323 mg/dL N Blood chemistry[[id number]] Glucose [Mass/volume] in Serum or Plasma [2345-7] 01/06/2025 11:50 AM 217 mg/dL N Blood chemistry[[id number]] Glucose [Mass/volume] in Serum or Plasma [2345-7] 01/05/2025 01:21 PM 228 mg/dL N Blood chemistry[[id number]] Glucose [Mass/volume] in Serum or Plasma [2345-7] 01/05/2025 04:15 PM 270 mg/dL N Blood chemistry[[id number]] Glucose [Mass/volume] in Serum or Plasma [2345-7] 01/05/2025 09:14 AM 216 mg/dL N Blood chemistry[[id number]] Glucose [Mass/volume] in Serum or Plasma [2345-7] 01/05/2025 11:31 AM 265 mg/dL N Blood chemistry[[id number]] Glucose [Mass/volume] in Serum or Plasma [2345-7] 01/04/2025 12:39 PM 270 mg/dL N Blood chemistry[[id number]] Glucose [Mass/volume] in Serum or Plasma [2345-7] 01/04/2025 03:56 PM 188 mg/dL N Blood chemistry[[id number]] Glucose [Mass/volume] in Serum or Plasma [2345-7] 01/04/2025 10:39 AM 289 mg/dL N Blood chemistry[[id number]] Glucose [Mass/volume] in Serum or Plasma [2345-7] 01/04/2025 01:15 PM 190 mg/dL N Blood chemistry[[id number]] Glucose [Mass/volume] in Serum or Plasma [2345-7] 01/04/2025 05:09 PM 234 mg/dL N Blood chemistry[[id number]] Glucose [Mass/volume] in Serum or Plasma [2345-7] 01/03/2025 04:36 PM 223 mg/dL N Blood chemistry[[id number]] Glucose [Mass/volume] in Serum or Plasma [2345-7] 01/03/2025 08:58 AM 219 mg/dL N Blood chemistry[[id number]] Glucose [Mass/volume] in Serum or Plasma [2345-7] 01/03/2025 11:28 AM 222 mg/dL N Blood chemistry[[id number]] Glucose [Mass/volume] in Serum or Plasma [2345-7] 01/02/2025 12:03 PM 267 mg/dL N Blood chemistry[[id number]] Glucose [Mass/volume] in Serum or Plasma [2345-7] 01/02/2025 04:39 PM 292 mg/dL N Blood chemistry[[id number]] Glucose [Mass/volume] in Serum or Plasma [2345-7] 01/02/2025 09:14 AM 137 mg/dL N Blood chemistry[[id number]] Glucose [Mass/volume] in Serum or Plasma [2345-7] 01/02/2025 02:11 PM 103 mg/dL N Blood chemistry[[id number]] Glucose [Mass/volume] in Serum or Plasma [2345-7] 01/01/2025 12:42 PM 200 mg/dL N Blood chemistry[[id number]] Glucose [Mass/volume] in Serum or Plasma [2345-7] 01/01/2025 05:13 PM 282 mg/dL N Blood chemistry[[id number]] Glucose [Mass/volume] in Serum or Plasma [2345-7] 01/01/2025 12:11 PM 225 mg/dL N Blood chemistry[[id number]] Glucose [Mass/volume] in Serum or Plasma [2345-7] 01/01/2025 09:59 AM 311 mg/dL N Blood chemistry[[id number]] Glucose [Mass/volume] in Serum or Plasma [2345-7] 12/31/2024 01:45 PM 241 mg/dL N Blood chemistry[[id number]] Glucose [Mass/volume] in Serum or Plasma [2345-7] 12/31/2024 12:03 PM 295 mg/dL N Blood chemistry[[id number]] Glucose [Mass/volume] in Serum or Plasma [2345-7] 12/31/2024 09:29 AM 286 mg/dL N Blood chemistry[[id number]] Glucose [Mass/volume] in Serum or Plasma [2345-7] 12/31/2024 06:39 AM 368 mg/dL N Tuberculosis reaction wheal[ 72825-7] Tuberculosis reaction wheal [82840-5] 12/29/2024 01:55 PM 0 mm NEG Blood chemistry[[id number]] Glucose [Mass/volume] in Serum or Plasma [2345-7] 12/30/2024 11:47 AM 299 mg/dL N Blood chemistry[[id number]] Glucose [Mass/volume] in Serum or Plasma [2345-7] 12/30/2024 03:33 PM 391 mg/dL N Blood chemistry[[id number]] Glucose [Mass/volume] in Serum or Plasma [2345-7] 12/30/2024 09:14 AM 394 mg/dL N Blood chemistry[[id number]] Glucose [Mass/volume] in Serum or Plasma [2345-7] 12/30/2024 11:36 AM 248 mg/dL N Blood chemistry[[id number]] Glucose [Mass/volume] in Serum or Plasma [2345-7] 12/29/2024 01:19 PM 299 mg/dL N Blood chemistry[[id number]] Glucose [Mass/volume] in Serum or Plasma [2345-7] 12/29/2024 04:17 PM 311 mg/dL N Blood chemistry[[id number]] Glucose [Mass/volume] in Serum or Plasma [2345-7] 12/29/2024 09:16 AM 335 mg/dL N Tuberculosis reaction wheal[ 75474-9] Tuberculosis reaction wheal [57669-3] 12/29/2024 01:55 PM See note TB test Blood chemistry[[id number]] Glucose [Mass/volume] in Serum or Plasma [2345-7] 12/29/2024 10:21 AM 311 mg/dL N Blood chemistry[[id number]] Glucose [Mass/volume] in Serum or Plasma [2345-7] 12/20/2024 11:30 AM 245 mg/dL N Blood chemistry[[id number]] Glucose [Mass/volume] in Serum or Plasma [2345-7] 12/19/2024 01:23 PM 249 mg/dL N Blood chemistry[[id number]] Glucose [Mass/volume] in Serum or Plasma [2345-7] 12/19/2024 04:13 PM 286 mg/dL N Blood chemistry[[id number]] Glucose [Mass/volume] in Serum or Plasma [2345-7] 12/19/2024 08:24 AM 193 mg/dL N Blood chemistry[[id number]] Glucose [Mass/volume] in Serum or Plasma [2345-7] 12/19/2024 01:16 PM 200 mg/dL N Blood chemistry[[id number]] Glucose [Mass/volume] in Serum or Plasma [2345-7] 12/18/2024 12:48 PM 288 mg/dL N Blood chemistry[[id number]] Glucose [Mass/volume] in Serum or Plasma [2345-7] 12/18/2024 10:35 AM 194 mg/dL N Blood chemistry[[id number]] Glucose [Mass/volume] in Serum or Plasma [2345-7] 12/18/2024 04:18 PM 238 mg/dL N Blood chemistry[[id number]] Glucose [Mass/volume] in Serum or Plasma [2345-7] 12/18/2024 12:56 PM 214 mg/dL N Blood chemistry[[id number]] Glucose [Mass/volume] in Serum or Plasma [2345-7] 12/17/2024 12:58 PM 200 mg/dL N Blood chemistry[[id number]] Glucose [Mass/volume] in Serum or Plasma [2345-7] 12/17/2024 04:59 PM 235 mg/dL N Blood chemistry[[id number]] Glucose [Mass/volume] in Serum or Plasma [2345-7] 12/17/2024 10:19 AM 228 mg/dL N Blood chemistry[[id number]] Glucose [Mass/volume] in Serum or Plasma [2345-7] 12/17/2024 11:45 AM 198 mg/dL N Blood chemistry[[id number]] Glucose [Mass/volume] in Serum or Plasma [2345-7] 12/17/2024 06:47 AM 189 mg/dL N Blood chemistry[[id number]] Glucose [Mass/volume] in Serum or Plasma [2345-7] 12/16/2024 04:49 PM 152 mg/dL N Blood chemistry[[id number]] Glucose [Mass/volume] in Serum or Plasma [2345-7] 12/16/2024 09:26 AM 172 mg/dL N Blood chemistry[[id number]] Glucose [Mass/volume] in Serum or Plasma [2345-7] 12/16/2024 11:56 AM 227 mg/dL N Blood chemistry[[id number]] Glucose [Mass/volume] in Serum or Plasma [2345-7] 12/15/2024 01:02 PM 235 mg/dL N Blood chemistry[[id number]] Glucose [Mass/volume] in Serum or Plasma [2345-7] 12/15/2024 04:51 PM 202 mg/dL N Blood chemistry[[id number]] Glucose [Mass/volume] in Serum or Plasma [2345-7] 12/15/2024 09:10 AM 209 mg/dL N Blood chemistry[[id number]] Glucose [Mass/volume] in Serum or Plasma [2345-7] 12/15/2024 11:44 AM 200 mg/dL N Blood chemistry[[id number]] Glucose [Mass/volume] in Serum or Plasma [2345-7] 12/14/2024 03:10 PM 191 mg/dL N Blood chemistry[[id number]] Glucose [Mass/volume] in Serum or Plasma [2345-7] 12/14/2024 04:16 PM 159 mg/dL N Blood chemistry[[id number]] Glucose [Mass/volume] in Serum or Plasma [2345-7] 12/14/2024 09:12 AM 188 mg/dL N Blood chemistry[[id number]] Glucose [Mass/volume] in Serum or Plasma [2345-7] 12/14/2024 11:48 AM 256 mg/dL N Blood chemistry[[id number]] Glucose [Mass/volume] in Serum or Plasma [2345-7] 12/13/2024 11:12 AM 201 mg/dL N Blood chemistry[[id number]] Glucose [Mass/volume] in Serum or Plasma [2345-7] 12/13/2024 09:03 AM 242 mg/dL N Blood chemistry[[id number]] Glucose [Mass/volume] in Serum or Plasma [2345-7] 12/13/2024 04:04 PM 281 mg/dL N Blood chemistry[[id number]] Glucose [Mass/volume] in Serum or Plasma [2345-7] 12/13/2024 11:54 AM 212 mg/dL N Blood chemistry[[id number]] Glucose [Mass/volume] in Serum or Plasma [2345-7] 12/13/2024 09:06 AM 305 mg/dL N Blood chemistry[[id number]] Glucose [Mass/volume] in Serum or Plasma [2345-7] 12/12/2024 04:42 PM 269 mg/dL N Blood chemistry[[id number]] Glucose [Mass/volume] in Serum or Plasma [2345-7] 12/12/2024 11:33 AM 203 mg/dL N Blood chemistry[[id number]] Glucose [Mass/volume] in Serum or Plasma [2345-7] 12/12/2024 09:04 AM 275 mg/dL N Blood chemistry[[id number]] Glucose [Mass/volume] in Serum or Plasma [2345-7] 12/11/2024 03:02 PM 278 mg/dL N Blood chemistry[[id number]] Glucose [Mass/volume] in Serum or Plasma [2345-7] 12/11/2024 09:17 AM 248 mg/dL N Blood chemistry[[id number]] Glucose [Mass/volume] in Serum or Plasma [2345-7] 12/11/2024 04:53 PM 250 mg/dL N Blood chemistry[[id number]] Glucose [Mass/volume] in Serum or Plasma [2345-7] 12/11/2024 11:52 AM 259 mg/dL N Blood chemistry[[id number]] Glucose [Mass/volume] in Serum or Plasma [2345-7] 12/10/2024 05:50 PM 263 mg/dL N Blood chemistry[[id number]] Glucose [Mass/volume] in Serum or Plasma [2345-7] 12/10/2024 03:17 PM 284 mg/dL N Blood chemistry[[id number]] Glucose [Mass/volume] in Serum or Plasma [2345-7] 12/10/2024 12:38 PM 221 mg/dL N Blood chemistry[[id number]] Glucose [Mass/volume] in Serum or Plasma [2345-7] 12/10/2024 10:54 AM 245 mg/dL N Blood chemistry[[id number]] Glucose [Mass/volume] in Serum or Plasma [2345-7] 12/09/2024 02:23 PM 214 mg/dL N Blood chemistry[[id number]] Glucose [Mass/volume] in Serum or Plasma [2345-7] 12/09/2024 09:57 AM 223 mg/dL N Blood chemistry[[id number]] Glucose [Mass/volume] in Serum or Plasma [2345-7] 12/09/2024 05:07 PM 225 mg/dL N Blood chemistry[[id number]] Glucose [Mass/volume] in Serum or Plasma [2345-7] 12/09/2024 12:42 PM 233 mg/dL N Blood chemistry[[id number]] Glucose [Mass/volume] in Serum or Plasma [2345-7] 12/08/2024 12:54 PM 297 mg/dL N Blood chemistry[[id number]] Glucose [Mass/volume] in Serum or Plasma [2345-7] 12/08/2024 10:19 AM 234 mg/dL N Blood chemistry[[id number]] Glucose [Mass/volume] in Serum or Plasma [2345-7] 12/08/2024 06:40 PM 229 mg/dL N Blood chemistry[[id number]] Glucose [Mass/volume] in Serum or Plasma [2345-7] 12/08/2024 05:22 PM 189 mg/dL N Blood chemistry[[id number]] Glucose [Mass/volume] in Serum or Plasma [2345-7] 12/08/2024 12:40 PM 227 mg/dL N Blood chemistry[[id number]] Glucose [Mass/volume] in Serum or Plasma [2345-7] 12/07/2024 11:23 AM 199 mg/dL N Blood chemistry[[id number]] Glucose [Mass/volume] in Serum or Plasma [2345-7] 12/07/2024 06:30 PM 186 mg/dL N Blood chemistry[[id number]] Glucose [Mass/volume] in Serum or Plasma [2345-7] 12/07/2024 02:55 PM 306 mg/dL N Blood chemistry[[id number]] Glucose [Mass/volume] in Serum or Plasma [2345-7] 12/06/2024 02:00 PM 316 mg/dL N Blood chemistry[[id number]] Glucose [Mass/volume] in Serum or Plasma [2345-7] 12/06/2024 10:16 AM 317 mg/dL N Blood chemistry[[id number]] Glucose [Mass/volume] in Serum or Plasma [2345-7] 12/06/2024 05:22 PM 205 mg/dL N Blood chemistry[[id number]] Glucose [Mass/volume] in Serum or Plasma [2345-7] 12/06/2024 01:56 PM 281 mg/dL N Blood chemistry[[id number]] Glucose [Mass/volume] in Serum or Plasma [2345-7] 12/05/2024 06:08 PM 217 mg/dL N Blood chemistry[[id number]] Glucose [Mass/volume] in Serum or Plasma [2345-7] 12/05/2024 03:22 PM 326 mg/dL N Blood chemistry[[id number]] Glucose [Mass/volume] in Serum or Plasma [2345-7] 12/05/2024 01:52 PM 188 mg/dL N Blood chemistry[[id number]] Glucose [Mass/volume] in Serum or Plasma [2345-7] 12/05/2024 11:03 AM 288 mg/dL N Blood chemistry[[id number]] Glucose [Mass/volume] in Serum or Plasma [2345-7] 12/04/2024 03:22 PM 378 mg/dL N Blood chemistry[[id number]] Glucose [Mass/volume] in Serum or Plasma [2345-7] 12/04/2024 11:50 AM 326 mg/dL N Blood chemistry[[id number]] Glucose [Mass/volume] in Serum or Plasma [2345-7] 12/04/2024 06:03 PM 318 mg/dL N Blood chemistry[[id number]] Glucose [Mass/volume] in Serum or Plasma [2345-7] 12/04/2024 01:47 PM 346 mg/dL N Blood chemistry[[id number]] Glucose [Mass/volume] in Serum or Plasma [2345-7] 12/03/2024 02:46 PM 300 mg/dL N Blood chemistry[[id number]] Glucose [Mass/volume] in Serum or Plasma [2345-7] 12/03/2024 11:02 AM 398 mg/dL N Blood chemistry[[id number]] Glucose [Mass/volume] in Serum or Plasma [2345-7] 12/03/2024 06:00 PM 400 mg/dL N Blood chemistry[[id number]] Glucose [Mass/volume] in Serum or Plasma [2345-7] 12/03/2024 02:45 PM 270 mg/dL N Blood chemistry[[id number]] Glucose [Mass/volume] in Serum or Plasma [2345-7] 12/02/2024 01:49 PM 281 mg/dL N Blood chemistry[[id number]] Glucose [Mass/volume] in Serum or Plasma [2345-7] 11/25/2024 04:06 PM 385 mg/dL N Blood chemistry[[id number]] Glucose [Mass/volume] in Serum or Plasma [2345-7] 11/25/2024 10:03 AM 267 mg/dL N Blood chemistry[[id number]] Glucose [Mass/volume] in Serum or Plasma [2345-7] 11/25/2024 05:14 PM 222 mg/dL N Blood chemistry[[id number]] Glucose [Mass/volume] in Serum or Plasma [2345-7] 11/25/2024 11:57 AM 215 mg/dL N Blood chemistry[[id number]] Glucose [Mass/volume] in Serum or Plasma [2345-7] 11/24/2024 12:53 PM 213 mg/dL N Blood chemistry[[id number]] Glucose [Mass/volume] in Serum or Plasma [2345-7] 11/24/2024 10:16 AM 395 mg/dL N Blood chemistry[[id number]] Glucose [Mass/volume] in Serum or Plasma [2345-7] 11/24/2024 05:39 PM 222 mg/dL N Blood chemistry[[id number]] Glucose [Mass/volume] in Serum or Plasma [2345-7] 11/24/2024 12:52 PM 275 mg/dL N Blood chemistry[[id number]] Glucose [Mass/volume] in Serum or Plasma [2345-7] 11/23/2024 02:43 PM 248 mg/dL N Blood chemistry[[id number]] Glucose [Mass/volume] in Serum or Plasma [2345-7] 11/23/2024 09:57 AM 193 mg/dL N Blood chemistry[[id number]] Glucose [Mass/volume] in Serum or Plasma [2345-7] 11/23/2024 04:28 PM 218 mg/dL N Blood chemistry[[id number]] Glucose [Mass/volume] in Serum or Plasma [2345-7] 11/23/2024 11:36 AM 256 mg/dL N Blood chemistry[[id number]] Glucose [Mass/volume] in Serum or Plasma [2345-7] 11/22/2024 01:06 PM 359 mg/dL N Blood chemistry[[id number]] Glucose [Mass/volume] in Serum or Plasma [2345-7] 11/22/2024 11:07 AM 312 mg/dL N Blood chemistry[[id number]] Glucose [Mass/volume] in Serum or Plasma [2345-7] 11/22/2024 06:11 PM 294 mg/dL N Blood chemistry[[id number]] Glucose [Mass/volume] in Serum or Plasma [2345-7] 11/22/2024 03:53 PM 258 mg/dL N Blood chemistry[[id number]] Glucose [Mass/volume] in Serum or Plasma [2345-7] 11/21/2024 06:03 PM 246 mg/dL N Blood chemistry[[id number]] Glucose [Mass/volume] in Serum or Plasma [2345-7] 11/21/2024 04:01 PM 335 mg/dL N Blood chemistry[[id number]] Glucose [Mass/volume] in Serum or Plasma [2345-7] 11/21/2024 01:48 PM 227 mg/dL N Blood chemistry[[id number]] Glucose [Mass/volume] in Serum or Plasma [2345-7] 11/21/2024 11:39 AM 156 mg/dL N Blood chemistry[[id number]] Glucose [Mass/volume] in Serum or Plasma [2345-7] 11/20/2024 01:20 PM 364 mg/dL N Blood chemistry[[id number]] Glucose [Mass/volume] in Serum or Plasma [2345-7] 11/20/2024 10:11 AM 338 mg/dL N Blood chemistry[[id number]] Glucose [Mass/volume] in Serum or Plasma [2345-7] 11/20/2024 04:41 PM 250 mg/dL N Blood chemistry[[id number]] Glucose [Mass/volume] in Serum or Plasma [2345-7] 11/20/2024 12:21 PM 268 mg/dL N Blood chemistry[[id number]] Glucose [Mass/volume] in Serum or Plasma [2345-7] 11/19/2024 05:30 PM 208 mg/dL N Blood chemistry[[id number]] Glucose [Mass/volume] in Serum or Plasma [2345-7] 11/19/2024 03:47 PM 181 mg/dL N Blood chemistry[[id number]] Glucose [Mass/volume] in Serum or Plasma [2345-7] 11/19/2024 12:22 PM 292 mg/dL N Blood chemistry[[id number]] Glucose [Mass/volume] in Serum or Plasma [2345-7] 11/19/2024 09:40 AM 249 mg/dL N Blood chemistry[[id number]] Glucose [Mass/volume] in Serum or Plasma [2345-7] 11/18/2024 01:02 PM 374 mg/dL N Blood chemistry[[id number]] Glucose [Mass/volume] in Serum or Plasma [2345-7] [...] Active Afluria Qd 2022-(3yr up)(PF) (flu vac [id number] 36mos up(pf)) 60 mcg (15 mcg x 4)/0.5 mL syringe (Afluria Qd (3yr up)(PF) (flu vac gy4211-49 36mos up(pf))) 0.5ml, intramuscular , Once - [...] Sugar is greater than 400, [facility]18 Active melatonin 1 mg [...] subcutaneous, Once A Day, [facility].0 1.0 d 12/21 Active insulin [...] Bedtime oral 1.0 12/21 Active Thera-M (multivitamin,t g-oqdh-vu-fa-mi n) 27-0.4 mg tablet (Thera-M (multivitamin,t o-dfhh-yk-fa-mi n)) 1 tab, oral, Once A Day, [...] s 1.0 12.0 h 12/01 Active Thera-M (aeywyjgj-wbm-v dennise fum-folic ac) 19 mg iron- 400 mcg tablet (Thera-M (kqswsgao-rts-u dennise fum-folic ac)) 1 tab, oral, Once [...] daysDO NOT GIVE TO RENAL PATIENTS--GO TO [facility] ORDERS oral 1.0 72.0 h 2024 Active [...] admission intraderma l 1.0 12/29 Active Thera-M (hmgbsxgo-fiv-z dennise fum-folic ac) 19 mg iron- 400 mcg tablet (Thera-M (zllgrcnq-aub-z dennise fum-folic ac)) 1 tab, oral, Once [...] Day oral 1.0 1.0 d 01/17 Active CultureQuikly (lactobac. rhamnosus gg-inulin) 10 billion cell -200 [...] AM Temperature (8310-5) 97.6 [degF] Oxygen Saturation (39795-8) 99 % Respiratory Rate (9279-1) 18 /min Heart Rate (8867-4) 105 /min Blood Pressure Systolic (8480-6) 107 mm[Hg] Blood Pressure Diastolic (8462-4) 69 mm[Hg] 06/20/2024 07:31 PM Temperature (8310-5) 98.2 [degF] Oxygen Saturation (31475-8) 95 % Respiratory Rate (9279-1) 20 /min Heart Rate (8867-4) 105 /min Blood Pressure Systolic (8480-6) 104 mm[Hg] Blood Pressure Diastolic (8462-4) 69 mm[Hg] 06/20/2024 07:54 AM Temperature (8310-5) 97.4 [degF] Oxygen Saturation (33838-5) 97 % Respiratory Rate (9279-1) 16 /min Heart Rate (8867-4) 86 /min Blood Pressure Systolic (8480-6) 120 mm[Hg] Blood Pressure Diastolic (8462-4) 74 mm[Hg] 06/19/2024 10:46 PM Temperature (8310-5) 97 [degF] Oxygen Saturation (22994-4) 95 % Respiratory Rate (9279-1) 16 /min Heart Rate (8867-4) 70 /min Blood Pressure Systolic (8480-6) 112 mm[Hg] Blood Pressure Diastolic (8462-4) 78 mm[Hg] 06/19/2024 07:18 AM Temperature (8310-5) 97.3 [degF] Oxygen Saturation (71806-9) 94 % Respiratory Rate (9279-1) 19 /min Heart Rate (8867-4) 68 /min Blood Pressure Systolic (8480-6) 109 mm[Hg] Blood Pressure Diastolic (8462-4) 63 mm[Hg] 06/18/2024 11:55 PM Temperature (8310-5) 98 [degF] Oxygen Saturation (17602-4) 95 % Respiratory Rate (9279-1) 18 /min Heart Rate (8867-4) 70 /min Blood Pressure Systolic (8480-6) 130 mm[Hg] Blood Pressure Diastolic (8462-4) 78 mm[Hg] 06/18/2024 07:37 AM Temperature (8310-5) 98 [degF] Oxygen Saturation (83110-3) 100 % Respiratory Rate (9279-1) 18 /min Heart Rate (8867-4) 97 /min Blood Pressure Systolic (8480-6) 102 mm[Hg] Blood Pressure Diastolic (8462-4) 61 mm[Hg] 06/17/2024 10:05 PM Temperature (8310-5) 98 [degF] Oxygen Saturation (75633-6) 96 % Respiratory Rate (9279-1) 16 /min Heart Rate (8867-4) 76 /min Blood Pressure Systolic (8480-6) 132 mm[Hg] Blood Pressure Diastolic (8462-4) 88 mm[Hg] 06/17/2024 06:57 AM Temperature (8310-5) 97.4 [degF] Oxygen Saturation (58523-1) 93 % Respiratory Rate (9279-1) 16 /min Heart Rate (8867-4) 82 /min Blood Pressure Systolic (8480-6) 108 mm[Hg] Blood Pressure Diastolic (8462-4) 71 mm[Hg] 06/16/2024 08:22 PM Temperature (8310-5) 98.4 [degF] Oxygen Saturation (47929-4) 94 % Respiratory Rate (9279-1) 20 /min Heart Rate (8867-4) 92 /min Blood Pressure Systolic (8480-6) 110 mm[Hg] Blood Pressure Diastolic (8462-4) 79 mm[Hg] 06/14/2024 11:04 PM Body Height (8302-2) 68 [in_us] Body Weight (13552-7) 202 [lb_av] Body Mass Index (83327-3) 30.71 kg/m2 05/25/2024 10:58 AM Body Weight (81275-2) 202.4 [lb_av ] Body Mass Index (88286-0) 30.77 kg/m2 04/20/2024 11:06 AM Body Weight (57758-1) 201 [lb_av] Body Mass Index (27032-8) 30.56 kg/m2 04/13/2024 09:23 AM Body Weight (12269-3) 210.4 [lb_av ] Body Mass Index (92577-8) 31.99 kg/m2 05/04/2024 10:54 AM Body Weight (39187-9) 204 [lb_av] Body Mass Index (65615-1) 31.01 kg/m2 06/16/2024 06:33 AM Body Weight (74325-4) 198 [lb_av] Body Mass Index (23428-8) 30.1 kg/m2 05/05/2024 10:28 AM Body Weight (60007-4) 204 [lb_av] Body Mass Index (47800-1) 31.01 kg/m2 04/04/2024 02:53 PM Body Weight (35112-7) 215 [lb_av] Body Mass Index (54938-3) 32.69 kg/m2 05/18/2024 07:21 AM Body Weight (35907-7) 202.8 [lb_av ] Body Mass Index (25866-3) 30.83 kg/m2 04/12/2024 12:14 PM Body Weight (24333-0) 210 [lb_av] Body Mass Index (36021-6) 31.93 kg/m2 06/05/2024 12:53 PM Body Weight (76364-7) 202.2 [lb_av ] Body Mass Index (00313-0) 30.74 kg/m2 06/15/2024 10:07 AM Body Weight (91858-9) 198.2 [lb_av ] Body Mass Index (91173-3) 30.13 kg/m2 05/08/2024 02:35 PM Body Weight (84109-9) 208.2 [lb_av ] Body Mass Index (61398-7) 31.65 kg/m2 06/17/2024 11:18 AM Body Weight (81608-8) 198 [lb_av] Body Mass Index (80735-2) 30.1 kg/m2 05/10/2024 09:17 AM Body Weight (47996-9) 204.6 [lb_av ] Body Mass Index (53561-3) 31.11 kg/m2 05/07/2024 09:36 AM Body Weight (06178-5) 203.2 [lb_av ] Body Mass Index (18359-0) 30.89 kg/m2 04/27/2024 10:11 AM Body Weight (88846-2) 204.4 [lb_av ] Body Mass Index (74826-6) 31.08 kg/m2 04/08/2024 08:13 PM Body Weight (64096-1) 216 [lb_av] Body Mass Index (25944-6) 32.84 kg/m2 04/01/2024 11:23 AM Body Weight (75713-0) 216 [lb_av] Body Mass Index (45213-6) 32.84 kg/m2 03/30/2024 10:08 AM Body Weight (86496-2) 218.4 [lb_av ] Body Mass Index (21058-1) 33.2 kg/m2 04/02/2024 04:15 PM Body Weight (68871-4) 216 [lb_av] Body Mass Index (60916-3) 32.84 kg/m2 11/18/2024 03:03 PM Temperature (8310-5) 97.7 [degF] Oxygen Saturation (88153-4) 99 % Respiratory Rate (9279-1) 20 /min Heart Rate (8867-4) 91 /min Blood Pressure Systolic (8480-6) 159 mm[Hg] Blood Pressure Diastolic (8462-4) 97 mm[Hg] Body Weight (94611-8) 186.4 [lb_av] Body Mass Index (11406-5) 28.34 kg/m2 11/19/2024 04:19 AM Temperature (8310-5) 98 [degF] Oxygen Saturation (75603-5) 95 % Respiratory Rate (9279-1) 16 /min Heart Rate (8867-4) 70 /min Blood Pressure Systolic (8480-6) 112 mm[Hg] Blood Pressure Diastolic (8462-4) 80 mm[Hg] 11/19/2024 09:48 PM Temperature (8310-5) 98 [degF] Oxygen Saturation (59796-1) 95 % Respiratory Rate (9279-1) 16 /min Heart Rate (8867-4) 70 /min Blood Pressure Systolic (8480-6) 136 mm[Hg] Blood Pressure Diastolic (8462-4) 78 mm[Hg] 11/19/2024 03:05 PM Body Weight (40311-7) 185.8 [lb_av ] Body Mass Index (87499-7) 28.25 kg/m2 11/19/2024 10:46 AM Temperature (8310-5) 98 [degF] Oxygen Saturation (91073-6) 98 % Respiratory Rate (9279-1) 18 /min Heart Rate (8867-4) 79 /min Blood Pressure Systolic (8480-6) 104 mm[Hg] Blood Pressure Diastolic (8462-4) 46 mm[Hg] 11/20/2024 01:08 PM Body Weight (70249-1) 184.2 [lb_av ] Body Mass Index (17288-1) 28 kg/m2 11/20/2024 07:57 AM Temperature (8310-5) 97.3 [degF] Oxygen Saturation (11283-6) 97 % Respiratory Rate (9279-1) 18 /min Heart Rate (8867-4) 96 /min Blood Pressure Systolic (8480-6) 106 mm[Hg] Blood Pressure Diastolic (8462-4) 73 mm[Hg] 11/21/2024 02:24 AM Temperature (8310-5) 97 [degF] Oxygen Saturation (91365-0) 96 % Respiratory Rate (9279-1) 16 /min Heart Rate (8867-4) 80 /min Blood Pressure Systolic (8480-6) 120 mm[Hg] Blood Pressure Diastolic (8462-4) 88 mm[Hg] 11/21/2024 09:25 PM Temperature (8310-5) 97.7 [degF] Oxygen Saturation (17021-6) 93 % Respiratory Rate (9279-1) 20 /min Heart Rate (8867-4) 79 /min Blood Pressure Systolic (8480-6) 104 mm[Hg] Blood Pressure Diastolic (8462-4) 66 mm[Hg] 11/21/2024 05:39 PM Temperature (8310-5) 98.2 [degF] Oxygen Saturation (50874-7) 93 % Respiratory Rate (9279-1) 20 /min Heart Rate (8867-4) 72 /min Blood Pressure Systolic (8480-6) 140 mm[Hg] Blood Pressure Diastolic (8462-4) 68 mm[Hg] 11/22/2024 09:55 AM Temperature (8310-5) 98.1 [degF] Oxygen Saturation (16830-0) 96 % Respiratory Rate (9279-1) 18 /min Heart Rate (8867-4) 67 /min Blood Pressure Systolic (8480-6) 98 mm[Hg] Blood Pressure Diastolic (8462-4) 62 mm[Hg] 11/23/2024 05:54 AM Temperature (8310-5) 96.9 [degF] Oxygen Saturation (55505-0) 96 % Respiratory Rate (9279-1) 18 /min Heart Rate (8867-4) 94 /min Blood Pressure Systolic (8480-6) 120 mm[Hg] Blood Pressure Diastolic (8462-4) 71 mm[Hg] 11/22/2024 06:42 PM Temperature (8310-5) 97.1 [degF] Oxygen Saturation (61332-5) 97 % Respiratory Rate (9279-1) 22 /min Heart Rate (8867-4) 95 /min Blood Pressure Systolic (8480-6) 100 mm[Hg] Blood Pressure Diastolic (8462-4) 52 mm[Hg] 11/24/2024 07:06 AM Temperature (8310-5) 98 [degF] Oxygen Saturation (94583-9) 98 % Respiratory Rate (9279-1) 20 /min Heart Rate (8867-4) 62 /min Blood Pressure Systolic (8480-6) 145 mm[Hg] Blood Pressure Diastolic (8462-4) 65 mm[Hg] 11/23/2024 07:50 PM Temperature (8310-5) 97.1 [degF] Oxygen Saturation (29105-1) 99 % Respiratory Rate (9279-1) 19 /min Heart Rate (8867-4) 60 /min Blood Pressure Systolic (8480-6) 160 mm[Hg] Blood Pressure Diastolic (8462-4) 58 mm[Hg] 11/25/2024 07:04 AM Temperature (8310-5) 97.6 [degF] Oxygen Saturation (03805-0) 96 % Respiratory Rate (9279-1) 18 /min Heart Rate (8867-4) 72 /min Blood Pressure Systolic (8480-6) 142 mm[Hg] Blood Pressure Diastolic (8462-4) 76 mm[Hg] 11/24/2024 08:50 PM Temperature (8310-5) 97 [degF] Oxygen Saturation (86081-2) 95 % Respiratory Rate (9279-1) 16 /min Heart Rate (8867-4) 80 /min Blood Pressure Systolic (8480-6) 130 mm[Hg] Blood Pressure Diastolic (8462-4) 80 mm[Hg] 11/25/2024 10:07 PM Temperature (8310-5) 99.9 [degF] Oxygen Saturation (42220-3) 98 % Respiratory Rate (9279-1) 18 /min Heart Rate (8867-4) 88 /min Blood Pressure Systolic (8480-6) 96 mm[Hg] Blood Pressure Diastolic (8462-4) 70 mm[Hg] 12/03/2024 09:56 AM Temperature (8310-5) 98.1 [degF] Oxygen Saturation (81064-7) 97 % Respiratory Rate (9279-1) 19 /min Heart Rate (8867-4) 83 /min Blood Pressure Systolic (8480-6) 112 mm[Hg] Blood Pressure Diastolic (8462-4) 68 mm[Hg] 12/02/2024 11:39 PM Temperature (8310-5) 97 [degF] Oxygen Saturation (14159-7) 95 % Respiratory Rate (9279-1) 16 /min Heart Rate (8867-4) 70 /min Blood Pressure Systolic (8480-6) 112 mm[Hg] Blood Pressure Diastolic (8462-4) 80 mm[Hg] 12/04/2024 09:15 AM Temperature (8310-5) 98.2 [degF] Oxygen Saturation (51994-1) 98 % Respiratory Rate (9279-1) 20 /min Heart Rate (8867-4) 84 /min Blood Pressure Systolic (8480-6) 138 mm[Hg] Blood Pressure Diastolic (8462-4) 73 mm[Hg] 12/03/2024 09:53 PM Temperature (8310-5) 97 [degF] Oxygen Saturation (07005-1) 95 % Respiratory Rate (9279-1) 16 /min Heart Rate (8867-4) 64 /min Blood Pressure Systolic (8480-6) 138 mm[Hg] Blood Pressure Diastolic (8462-4) 70 mm[Hg] 12/04/2024 09:21 PM Oxygen Saturation (60493-8) 98 % 12/04/2024 09:20 PM Blood Pressure Systolic (8480-6) 1 24 mm[Hg] Blood Pressure Diastolic (8462-4) 80 mm[Hg] 12/04/2024 09:18 PM Temperature (8310-5) 97 [degF] Respiratory Rate (9279-1) 18 /min Heart Rate (8867-4) 80 /min 12/05/2024 06:51 PM Temperature (8310-5) 97.1 [degF] Oxygen Saturation (92267-6) 99 % Respiratory Rate (9279-1) 14 /min Heart Rate (8867-4) 84 /min Blood Pressure Systolic (8480-6) 88 mm[Hg] Blood Pressure Diastolic (8462-4) 53 mm[Hg] 12/05/2024 09:58 AM Temperature (8310-5) 98 [degF] Oxygen Saturation (24172-8) 97 % Respiratory Rate (9279-1) 17 /min Heart Rate (8867-4) 98 /min Blood Pressure Systolic (8480-6) 117 mm[Hg] Blood Pressure Diastolic (8462-4) 78 mm[Hg] 12/06/2024 11:21 AM Temperature (8310-5) 98.1 [degF] Oxygen Saturation (67273-3) 97 % Respiratory Rate (9279-1) 16 /min Heart Rate (8867-4) 70 /min Blood Pressure Systolic (8480-6) 128 mm[Hg] Blood Pressure Diastolic (8462-4) 70 mm[Hg] 12/06/2024 07:51 PM Temperature (8310-5) 97.2 [degF] Oxygen Saturation (93090-1) 97 % Respiratory Rate (9279-1) 16 /min Heart Rate (8867-4) 78 /min Blood Pressure Systolic (8480-6) 88 mm[Hg] Blood Pressure Diastolic (8462-4) 52 mm[Hg] 12/08/2024 10:40 AM Temperature (8310-5) 97.8 [degF] Oxygen Saturation (85604-5) 97 % Respiratory Rate (9279-1) 18 /min Heart Rate (8867-4) 88 /min Blood Pressure Systolic (8480-6) 124 mm[Hg] Blood Pressure Diastolic (8462-4) 66 mm[Hg] 12/08/2024 12:40 AM Temperature (8310-5) 96.8 [degF] Oxygen Saturation (33086-1) 98 % Respiratory Rate (9279-1) 16 /min Heart Rate (8867-4) 85 /min Blood Pressure Systolic (8480-6) 103 mm[Hg] Blood Pressure Diastolic (8462-4) 78 mm[Hg] 12/07/2024 05:24 PM Temperature (8310-5) 97.7 [degF] Oxygen Saturation (43641-6) 92 % Respiratory Rate (9279-1) 20 /min Heart Rate (8867-4) 72 /min Blood Pressure Systolic (8480-6) 114 mm[Hg] Blood Pressure Diastolic (8462-4) 63 mm[Hg] 12/09/2024 07:31 AM Temperature (8310-5) 97.2 [degF] Oxygen Saturation (06731-6) 96 % Respiratory Rate (9279-1) 18 /min Heart Rate (8867-4) 62 /min Blood Pressure Systolic (8480-6) 136 mm[Hg] Blood Pressure Diastolic (8462-4) 72 mm[Hg] 12/09/2024 12:00 AM Temperature (8310-5) 98 [degF] Oxygen Saturation (62931-0) 95 % Respiratory Rate (9279-1) 16 /min Heart Rate (8867-4) 80 /min Blood Pressure Systolic (8480-6) 132 mm[Hg] Blood Pressure Diastolic (8462-4) 87 mm[Hg] 12/09/2024 10:44 PM Temperature (8310-5) 98 [degF] Oxygen Saturation (52117-7) 96 % Respiratory Rate (9279-1) 16 /min Heart Rate (8867-4) 80 /min Blood Pressure Systolic (8480-6) 134 mm[Hg] Blood Pressure Diastolic (8462-4) 80 mm[Hg] 12/10/2024 09:46 PM Temperature (8310-5) 97 [degF] Oxygen Saturation (72006-6) 95 % Respiratory Rate (9279-1) 16 /min Heart Rate (8867-4) 80 /min Blood Pressure Systolic (8480-6) 122 mm[Hg] Blood Pressure Diastolic (8462-4) 70 mm[Hg] 12/10/2024 07:05 AM Temperature (8310-5) 97.6 [degF] Oxygen Saturation (84014-1) 95 % Respiratory Rate (9279-1) 18 /min Heart Rate (8867-4) 62 /min Blood Pressure Systolic (8480-6) 118 mm[Hg] Blood Pressure Diastolic (8462-4) 72 mm[Hg] 12/11/2024 07:29 AM Temperature (8310-5) 97.2 [degF] Oxygen Saturation (50895-4) 96 % Respiratory Rate (9279-1) 18 /min Heart Rate (8867-4) 74 /min Blood Pressure Systolic (8480-6) 118 mm[Hg] Blood Pressure Diastolic (8462-4) 62 mm[Hg] 12/11/2024 10:03 PM Temperature (8310-5) 98 [degF] Oxygen Saturation (77475-3) 95 % Respiratory Rate (9279-1) 16 /min Heart Rate (8867-4) 80 /min Blood Pressure Systolic (8480-6) 132 mm[Hg] Blood Pressure Diastolic (8462-4) 80 mm[Hg] 12/12/2024 08:23 PM Temperature (8310-5) 97.1 [degF] Oxygen Saturation (94206-8) 97 % Respiratory Rate (9279-1) 18 /min Heart Rate (8867-4) 74 /min Blood Pressure Systolic (8480-6) 120 mm[Hg] Blood Pressure Diastolic (8462-4) 80 mm[Hg] 12/12/2024 09:41 AM Temperature (8310-5) 97 [degF] Oxygen Saturation (89591-2) 99 % Respiratory Rate (9279-1) 19 /min Heart Rate (8867-4) 84 /min Blood Pressure Systolic (8480-6) 102 mm[Hg] Blood Pressure Diastolic (8462-4) 73 mm[Hg] 12/13/2024 07:26 AM Temperature (8310-5) 97.1 [degF] Oxygen Saturation (14108-7) 93 % Respiratory Rate (9279-1) 17 /min Heart Rate (8867-4) 80 /min Blood Pressure Systolic (8480-6) 118 mm[Hg] Blood Pressure Diastolic (8462-4) 77 mm[Hg] 12/13/2024 06:27 PM Temperature (8310-5) 97.7 [degF] Oxygen Saturation (12491-7) 97 % Respiratory Rate (9279-1) 17 /min Heart Rate (8867-4) 80 /min Blood Pressure Systolic (8480-6) 115 mm[Hg] Blood Pressure Diastolic (8462-4) 83 mm[Hg] 12/14/2024 08:07 AM Temperature (8310-5) 97.9 [degF] Oxygen Saturation (78334-6) 95 % Respiratory Rate (9279-1) 16 /min Heart Rate (8867-4) 90 /min Blood Pressure Systolic (8480-6) 127 mm[Hg] Blood Pressure Diastolic (8462-4) 62 mm[Hg] 12/14/2024 10:11 PM Temperature (8310-5) 97.5 [degF] Oxygen Saturation (31998-0) 98 % Respiratory Rate (9279-1) 16 /min Heart Rate (8867-4) 85 /min Blood Pressure Systolic (8480-6) 131 mm[Hg] Blood Pressure Diastolic (8462-4) 66 mm[Hg] 12/15/2024 07:10 AM Temperature (8310-5) 98.1 [degF] Oxygen Saturation (09370-3) 97 % Respiratory Rate (9279-1) 18 /min Heart Rate (8867-4) 73 /min Blood Pressure Systolic (8480-6) 145 mm[Hg] Blood Pressure Diastolic (8462-4) 99 mm[Hg] 12/15/2024 09:00 PM Temperature (8310-5) 97 [degF] Oxygen Saturation (43126-5) 99 % Respiratory Rate (9279-1) 20 /min Heart Rate (8867-4) 91 /min Blood Pressure Systolic (8480-6) 118 mm[Hg] Blood Pressure Diastolic (8462-4) 80 mm[Hg] 12/16/2024 12:12 PM Temperature (8310-5) 97.3 [degF] Oxygen Saturation (39936-8) 99 % Respiratory Rate (9279-1) 21 /min Heart Rate (8867-4) 86 /min Blood Pressure Systolic (8480-6) 120 mm[Hg] Blood Pressure Diastolic (8462-4) 78 mm[Hg] 12/17/2024 08:59 AM Temperature (8310-5) 97.6 [degF] Oxygen Saturation (33866-6) 99 % Respiratory Rate (9279-1) 18 /min Heart Rate (8867-4) 66 /min Blood Pressure Systolic (8480-6) 148 mm[Hg] Blood Pressure Diastolic (8462-4) 84 mm[Hg] 12/17/2024 01:51 AM Temperature (8310-5) 97 [degF] Oxygen Saturation (28333-8) 95 % Respiratory Rate (9279-1) 16 /min Heart Rate (8867-4) 70 /min Blood Pressure Systolic (8480-6) 132 mm[Hg] Blood Pressure Diastolic (8462-4) 78 mm[Hg] 12/17/2024 07:59 PM Temperature (8310-5) 98 [degF] Oxygen Saturation (89133-0) 95 % Respiratory Rate (9279-1) 16 /min Heart Rate (8867-4) 70 /min Blood Pressure Systolic (8480-6) 122 mm[Hg] Blood Pressure Diastolic (8462-4) 80 mm[Hg] 12/18/2024 08:44 AM Temperature (8310-5) 97.5 [degF] Oxygen Saturation (91697-3) 99 % Respiratory Rate (9279-1) 14 /min Heart Rate (8867-4) 80 /min Blood Pressure Systolic (8480-6) 111 mm[Hg] Blood Pressure Diastolic (8462-4) 57 mm[Hg] 12/19/2024 05:02 AM Temperature (8310-5) 98 [degF] Oxygen Saturation (35756-0) 98 % Respiratory Rate (9279-1) 16 /min Heart Rate (8867-4) 80 /min Blood Pressure Systolic (8480-6) 120 mm[Hg] Blood Pressure Diastolic (8462-4) 78 mm[Hg] 12/19/2024 01:04 PM Temperature (8310-5) 98.2 [degF] Oxygen Saturation (80514-2) 97 % Respiratory Rate (9279-1) 20 /min Heart Rate (8867-4) 76 /min Blood Pressure Systolic (8480-6) 126 mm[Hg] Blood Pressure Diastolic (8462-4) 76 mm[Hg] 12/19/2024 08:24 PM Temperature (8310-5) 97.5 [degF] Oxygen Saturation (88600-9) 98 % Respiratory Rate (9279-1) 18 /min Heart Rate (8867-4) 82 /min Blood Pressure Systolic (8480-6) 92 mm[Hg] Blood Pressure Diastolic (8462-4) 56 mm[Hg] 12/20/2024 08:20 AM Temperature (8310-5) 97.1 [degF] Oxygen Saturation (51418-1) 97 % Respiratory Rate (9279-1) 16 /min Heart Rate (8867-4) 71 /min Blood Pressure Systolic (8480-6) 113 mm[Hg] Blood Pressure Diastolic (8462-4) 67 mm[Hg] 12/29/2024 12:26 AM Temperature (8310-5) 98.2 [degF] Oxygen Saturation (89255-2) 97 % Respiratory Rate (9279-1) 17 /min Heart Rate (8867-4) 101 /min Blood Pressure Systolic (8480-6) 127 mm[Hg] Blood Pressure Diastolic (8462-4) 84 mm[Hg] Body Weight (88567-7) 185 [lb_av] Body Mass Index (73817-2) 28.13 kg/m2 12/29/2024 06:31 AM Temperature (8310-5) 98.4 [degF] Oxygen Saturation (37725-2) 98 % Respiratory Rate (9279-1) 18 /min Heart Rate (8867-4) 96 /min Blood Pressure Systolic (8480-6) 132 mm[Hg] Blood Pressure Diastolic (8462-4) 58 mm[Hg] 12/29/2024 08:19 PM Temperature (8310-5) 98.3 [degF] Oxygen Saturation (31704-1) 95 % Respiratory Rate (9279-1) 15 /min Heart Rate (8867-4) 104 /min Blood Pressure Systolic (8480-6) 121 mm[Hg] Blood Pressure Diastolic (8462-4) 78 mm[Hg] 12/30/2024 10:28 AM Temperature (8310-5) 97.2 [degF] Oxygen Saturation (31949-4) 98 % Respiratory Rate (9279-1) 20 /min Heart Rate (8867-4) 85 /min Blood Pressure Systolic (8480-6) 113 mm[Hg] Blood Pressure Diastolic (8462-4) 62 mm[Hg] 12/30/2024 10:52 PM Heart Rate (8867-4) 78 /min 12/30/2024 10:51 PM Temperature (8310-5) 97 [degF] Oxygen Saturation (97511-2) 95 % Respiratory Rate (9279-1) 16 /min Blood Pressure Systolic (8480-6) 112 mm[Hg] Blood Pressure Diastolic (8462-4) 80 mm[Hg] 12/31/2024 03:52 PM Temperature (8310-5) 98 [degF] Oxygen Saturation (44718-3) 96 % Respiratory Rate (9279-1) 20 /min Heart Rate (8867-4) 109 /min Blood Pressure Systolic (8480-6) 90 mm[Hg] Blood Pressure Diastolic (8462-4) 71 mm[Hg] 12/31/2024 01:40 PM Body Weight (43772-3) 186 [lb_av] Body Mass Index (43266-5) 28.28 kg/m2 12/31/2024 08:46 PM Temperature (8310-5) 98 [degF] Oxygen Saturation (60170-8) 95 % Respiratory Rate (9279-1) 18 /min Heart Rate (8867-4) 70 /min Blood Pressure Systolic (8480-6) 114 mm[Hg] Blood Pressure Diastolic (8462-4) 80 mm[Hg] 01/01/2025 10:36 AM Temperature (8310-5) 97.8 [degF] Oxygen Saturation (62012-4) 97 % Respiratory Rate (9279-1) 19 /min Heart Rate (8867-4) 95 /min Blood Pressure Systolic (8480-6) 111 mm[Hg] Blood Pressure Diastolic (8462-4) 70 mm[Hg] 01/01/2025 07:41 PM Temperature (8310-5) 98 [degF] Oxygen Saturation (42300-4) 95 % Respiratory Rate (9279-1) 16 /min Heart Rate (8867-4) 88 /min Blood Pressure Systolic (8480-6) 122 mm[Hg] Blood Pressure Diastolic (8462-4) 80 mm[Hg] 01/02/2025 12:59 PM Oxygen Saturation (21545-8) 97 % 01/02/2025 12:57 PM Temperature (8310-5) 97.3 [degF] Respiratory Rate (9279-1) 16 /min Heart Rate (8867-4) 96 /min Blood Pressure Systolic (8480-6) 90 mm[Hg] Blood Pressure Diastolic (8462-4) 60 mm[Hg] 01/02/2025 07:07 PM Temperature (8310-5) 98.6 [degF] Oxygen Saturation (06946-7) 98 % Respiratory Rate (9279-1) 16 /min Heart Rate (8867-4) 111 /min Blood Pressure Systolic (8480-6) 114 mm[Hg] Blood Pressure Diastolic (8462-4) 64 mm[Hg] 01/03/2025 06:28 AM Temperature (8310-5) 97.7 [degF] Oxygen Saturation (09682-3) 96 % Respiratory Rate (9279-1) 19 /min Heart Rate (8867-4) 111 /min Blood Pressure Systolic (8480-6) 116 mm[Hg] Blood Pressure Diastolic (8462-4) 88 mm[Hg] 01/03/2025 11:35 AM Body Weight (45019-0) 182.4 [lb_av ] Body Mass Index (00077-2) 27.73 kg/m2 01/04/2025 12:10 AM Temperature (8310-5) 97.6 [degF] Oxygen Saturation (75737-0) 97 % Respiratory Rate (9279-1) 15 /min Heart Rate (8867-4) 114 /min Blood Pressure Systolic (8480-6) 121 mm[Hg] Blood Pressure Diastolic (8462-4) 82 mm[Hg] 01/04/2025 09:26 AM Temperature (8310-5) 97.3 [degF] Oxygen Saturation (95713-1) 100 % Respiratory Rate (9279-1) 18 /min Heart Rate (8867-4) 84 /min Blood Pressure Systolic (8480-6) 115 mm[Hg] Blood Pressure Diastolic (8462-4) 71 mm[Hg] 01/04/2025 11:29 PM Temperature (8310-5) 98.1 [degF] Oxygen Saturation (82260-5) 96 % Respiratory Rate (9279-1) 14 /min Heart Rate (8867-4) 87 /min Blood Pressure Systolic (8480-6) 118 mm[Hg] Blood Pressure Diastolic (8462-4) 70 mm[Hg] 01/05/2025 06:32 AM Temperature (8310-5) 98.6 [degF] Oxygen Saturation (70720-2) 95 % Respiratory Rate (9279-1) 19 /min Heart Rate (8867-4) 72 /min Blood Pressure Systolic (8480-6) 122 mm[Hg] Blood Pressure Diastolic (8462-4) 66 mm[Hg] 01/06/2025 12:39 AM Temperature (8310-5) 98.6 [degF] Oxygen Saturation (00345-8) 97 % Respiratory Rate (9279-1) 18 /min Heart Rate (8867-4) 88 /min Blood Pressure Systolic (8480-6) 110 mm[Hg] Blood Pressure Diastolic (8462-4) 69 mm[Hg] 01/06/2025 06:50 AM Temperature (8310-5) 98.2 [degF] Oxygen Saturation (07030-7) 98 % Respiratory Rate (9279-1) 16 /min Heart Rate (8867-4) 80 /min Blood Pressure Systolic (8480-6) 118 mm[Hg] Blood Pressure Diastolic (8462-4) 58 mm[Hg] 01/07/2025 11:02 AM Temperature (8310-5) 98 [degF] Oxygen Saturation (86163-8) 97 % Respiratory Rate (9279-1) 18 /min Heart Rate (8867-4) 65 /min Blood Pressure Systolic (8480-6) 128 mm[Hg] Blood Pressure Diastolic (8462-4) 60 mm[Hg] 01/07/2025 09:35 PM Temperature (8310-5) 98 [degF] Oxygen Saturation (72094-7) 95 % Respiratory Rate (9279-1) 16 /min Heart Rate (8867-4) 78 /min Blood Pressure Systolic (8480-6) 120 mm[Hg] Blood Pressure Diastolic (8462-4) 78 mm[Hg] 01/08/2025 06:38 AM Temperature (8310-5) 98.2 [degF] Oxygen Saturation (71095-2) 96 % Respiratory Rate (9279-1) 18 /min Heart Rate (8867-4) 88 /min Blood Pressure Systolic (8480-6) 132 mm[Hg] Blood Pressure Diastolic (8462-4) 72 mm[Hg] 01/08/2025 08:53 PM Temperature (8310-5) 97 [degF] Oxygen Saturation (00033-0) 95 % Respiratory Rate (9279-1) 16 /min Heart Rate (8867-4) 88 /min Blood Pressure Systolic (8480-6) 132 mm[Hg] Blood Pressure Diastolic (8462-4) 70 mm[Hg] 01/09/2025 10:35 PM Temperature (8310-5) 98.6 [degF] Oxygen Saturation (28131-6) 96 % Respiratory Rate (9279-1) 20 /min Heart Rate (8867-4) 77 /min Blood Pressure Systolic (8480-6) 92 mm[Hg] Blood Pressure Diastolic (8462-4) 71 mm[Hg] 01/09/2025 06:26 PM Temperature (8310-5) 98 [degF] Oxygen Saturation (52775-6) 95 % Respiratory Rate (9279-1) 18 /min Heart Rate (8867-4) 94 /min Blood Pressure Systolic (8480-6) 117 mm[Hg] Blood Pressure Diastolic (8462-4) 89 mm[Hg] 01/10/2025 06:31 AM Temperature (8310-5) 98 [degF] Oxygen Saturation (20579-2) 97 % Respiratory Rate (9279-1) 16 /min Heart Rate (8867-4) 68 /min Blood Pressure Systolic (8480-6) 112 mm[Hg] Blood Pressure Diastolic (8462-4) 68 mm[Hg] 01/10/2025 10:10 PM Temperature (8310-5) 98.1 [degF] Oxygen Saturation (29679-5) 96 % Respiratory Rate (9279-1) 16 /min Heart Rate (8867-4) 75 /min Blood Pressure Systolic (8480-6) 98 mm[Hg] Blood Pressure Diastolic (8462-4) 63 mm[Hg] 01/11/2025 06:36 AM Temperature (8310-5) 97.4 [degF] Oxygen Saturation (47051-4) 97 % Respiratory Rate (9279-1) 19 /min Heart Rate (8867-4) 83 /min Blood Pressure Systolic (8480-6) 120 mm[Hg] Blood Pressure Diastolic (8462-4) 73 mm[Hg] 01/11/2025 08:44 PM Temperature (8310-5) 98.2 [degF] Oxygen Saturation (47223-5) 98 % Respiratory Rate (9279-1) 15 /min Heart Rate (8867-4) 76 /min Blood Pressure Systolic (8480-6) 110 mm[Hg] Blood Pressure Diastolic (8462-4) 62 mm[Hg] 01/12/2025 06:27 AM Temperature (8310-5) 98 [degF] Oxygen Saturation (46847-5) 96 % Respiratory Rate (9279-1) 18 /min Heart Rate (8867-4) 80 /min Blood Pressure Systolic (8480-6) 118 mm[Hg] Blood Pressure Diastolic (8462-4) 66 mm[Hg] 01/12/2025 08:41 PM Temperature (8310-5) 98.2 [degF] Oxygen Saturation (02085-6) 97 % Respiratory Rate (9279-1) 18 /min Heart Rate (8867-4) 95 /min Blood Pressure Systolic (8480-6) 117 mm[Hg] Blood Pressure Diastolic (8462-4) 77 mm[Hg] 01/14/2025 07:48 AM Temperature (8310-5) 97.3 [degF] Oxygen Saturation (85078-0) 96 % Respiratory Rate (9279-1) 19 /min Heart Rate (8867-4) 74 /min Blood Pressure Systolic (8480-6) 111 mm[Hg] Blood Pressure Diastolic (8462-4) 60 mm[Hg] 01/14/2025 02:18 AM Temperature (8310-5) 97 [degF] Oxygen Saturation (49876-3) 96 % Respiratory Rate (9279-1) 16 /min Heart Rate (8867-4) 80 /min Blood Pressure Systolic (8480-6) 132 mm[Hg] Blood Pressure Diastolic (8462-4) 80 mm[Hg] 01/14/2025 09:43 PM Temperature (8310-5) 98 [degF] Oxygen Saturation (37787-9) 95 % Respiratory Rate (9279-1) 16 /min Heart Rate (8867-4) 80 /min Blood Pressure Systolic (8480-6) 124 mm[Hg] Blood Pressure Diastolic (8462-4) 78 mm[Hg] 01/15/2025 07:52 AM Temperature (8310-5) 97.7 [degF] Oxygen Saturation (19621-8) 95 % Respiratory Rate (9279-1) 18 /min Heart Rate (8867-4) 90 /min Blood Pressure Systolic (8480-6) 134 mm[Hg] Blood Pressure Diastolic (8462-4) 70 mm[Hg] 01/15/2025 08:59 PM Temperature (8310-5) 97 [degF] Oxygen Saturation (38155-0) 96 % Respiratory Rate (9279-1) 18 /min Heart Rate (8867-4) 88 /min Blood Pressure Systolic (8480-6) 120 mm[Hg] Blood Pressure Diastolic (8462-4) 78 mm[Hg] 01/16/2025 01:34 PM Temperature (8310-5) 97.1 [degF] Oxygen Saturation (20548-7) 96 % Respiratory Rate (9279-1) 16 /min Heart Rate (8867-4) 77 /min Blood Pressure Systolic (8480-6) 140 mm[Hg] Blood Pressure Diastolic (8462-4) 71 mm[Hg] 01/16/2025 11:40 PM Temperature (8310-5) 98.1 [degF] Oxygen Saturation (77313-2) 94 % Respiratory Rate (9279-1) 15 /min Heart Rate (8867-4) 74 /min Blood Pressure Systolic (8480-6) 107 mm[Hg] Blood Pressure Diastolic (8462-4) 66 mm[Hg] 01/17/2025 10:22 AM Temperature (8310-5) 97.7 [degF] Oxygen Saturation (52077-5) 99 % Respiratory Rate (9279-1) 18 /min Heart Rate (8867-4) 90 /min Blood Pressure Systolic (8480-6) 129 mm[Hg] Blood Pressure Diastolic (8462-4) 87 mm[Hg] 01/18/2025 02:50 AM Temperature (8310-5) 96.8 [degF] Oxygen Saturation (85799-1) 95 % Respiratory Rate (9279-1) 16 /min Heart Rate (8867-4) 90 /min Blood Pressure Systolic (8480-6) 120 mm[Hg] Blood Pressure Diastolic (8462-4) 59 mm[Hg] 01/18/2025 01:05 PM Temperature (8310-5) 97 [degF] Oxygen Saturation (11397-1) 98 % Respiratory Rate (9279-1) 16 /min Heart Rate (8867-4) 86 /min Blood Pressure Systolic (8480-6) 98 mm[Hg] Blood Pressure Diastolic (8462-4) 61 mm[Hg] 01/18/2025 10:57 PM Temperature (8310-5) 97.8 [degF] Oxygen Saturation (05277-5) 90 % Respiratory Rate (9279-1) 17 /min Heart Rate (8867-4) 57 /min Blood Pressure Systolic (8480-6) 103 mm[Hg] Blood Pressure Diastolic (8462-4) 89 mm[Hg] 01/19/2025 06:34 AM Temperature (8310-5) 97.9 [degF] Oxygen Saturation (54635-7) 95 % Respiratory Rate (9279-1) 18 /min Heart Rate (8867-4) 68 /min Blood Pressure Systolic (8480-6) 116 mm[Hg] Blood Pressure Diastolic (8462-4) 61 mm[Hg] 01/19/2025 11:39 PM Temperature (8310-5) 98 [degF] Oxygen Saturation (33928-2) 95 % Respiratory Rate (9279-1) 18 /min Heart Rate (8867-4) 78 /min Blood Pressure Systolic (8480-6) 122 mm[Hg] Blood Pressure Diastolic (8462-4) 88 mm[Hg] 01/20/2025 06:39 AM Temperature (8310-5) 97.5 [degF] Oxygen Saturation (64619-4) 94 % Respiratory Rate (9279-1) 16 /min Heart Rate (8867-4) 66 /min Blood Pressure Systolic (8480-6) 132 mm[Hg] Blood Pressure Diastolic (8462-4) 64 mm[Hg] 01/20/2025 08:18 PM Temperature (8310-5) 98 [degF] Oxygen Saturation (10745-3) 96 % Respiratory Rate (9279-1) 16 /min Heart Rate (8867-4) 70 /min Blood Pressure Systolic (8480-6) 114 mm[Hg] Blood Pressure Diastolic (8462-4) 80 mm[Hg] 01/21/2025 09:27 AM Temperature (8310-5) 97.9 [degF] Oxygen Saturation (01797-9) 100 % Respiratory Rate (9279-1) 20 /min Heart Rate (8867-4) 79 /min Blood Pressure Systolic (8480-6) 109 mm[Hg] Blood Pressure Diastolic (8462-4) 58 mm[Hg] 01/21/2025 08:29 PM Temperature (8310-5) 98.2 [degF] Oxygen Saturation (22856-7) 95 % Respiratory Rate (9279-1) 16 /min Heart Rate (8867-4) 70 /min Blood Pressure Systolic (8480-6) 132 mm[Hg] Blood Pressure Diastolic (8462-4) 80 mm[Hg] 01/22/2025 09:20 AM Temperature (8310-5) 98 [degF] Oxygen Saturation (88475-9) 96 % Respiratory Rate (9279-1) 18 /min Heart Rate (8867-4) 85 /min Blood Pressure Systolic (8480-6) 176 mm[Hg] Blood Pressure Diastolic (8462-4) 85 mm[Hg] 01/22/2025 08:43 PM Temperature (8310-5) 97 [degF] Oxygen Saturation (11571-9) 95 % Respiratory Rate (9279-1) 16 /min Heart Rate (8867-4) 68 /min Blood Pressure Systolic (8480-6) 126 mm[Hg] Blood Pressure Diastolic (8462-4) 80 mm[Hg] 01/23/2025 09:40 AM Temperature (8310-5) 97.8 [degF] Oxygen Saturation (00394-3) 99 % Respiratory Rate (9279-1) 18 /min Heart Rate (8867-4) 76 /min Blood Pressure Systolic (8480-6) 116 mm[Hg] Blood Pressure Diastolic (8462-4) 68 mm[Hg] 01/23/2025 08:02 PM Temperature (8310-5) 97.6 [degF] Oxygen Saturation (46070-5) 98 % Respiratory Rate (9279-1) 18 /min Heart Rate (8867-4) 71 /min Blood Pressure Systolic (8480-6) 151 mm[Hg] Blood Pressure Diastolic (8462-4) 105 mm[Hg] 01/24/2025 07:03 AM Temperature (8310-5) 98 [degF] Oxygen Saturation (93108-3) 97 % Respiratory Rate (9279-1) 16 /min Heart Rate (8867-4) 70 /min Blood Pressure Systolic (8480-6) 132 mm[Hg] Blood Pressure Diastolic (8462-4) 66 mm[Hg] 01/24/2025 07:58 PM Temperature (8310-5) 98.3 [degF] Oxygen Saturation (02767-2) 97 % Respiratory Rate (9279-1) 15 /min Heart Rate (8867-4) 74 /min Blood Pressure Systolic (8480-6) 138 mm[Hg] Blood Pressure Diastolic (8462-4) 93 mm[Hg] 01/25/2025 06:28 AM Temperature (8310-5) 98 [degF] Oxygen Saturation (28775-4) 97 % Respiratory Rate (9279-1) 17 /min Heart Rate (8867-4) 65 /min Blood Pressure Systolic (8480-6) 141 mm[Hg] Blood Pressure Diastolic (8462-4) 85 mm[Hg] 01/25/2025 01:45 PM Body Weight (65426-8) 179.6 [lb_av ] Body Mass Index (37244-2) 27.31 kg/m2 01/25/2025 09:52 PM Temperature (8310-5) 98.3 [degF] Oxygen Saturation (86758-1) 97 % Respiratory Rate (9279-1) 15 /min Heart Rate (8867-4) 77 /min Blood Pressure Systolic (8480-6) 93 mm[Hg] Blood Pressure Diastolic (8462-4) 55 mm[Hg] 01/26/2025 06:34 AM Temperature (8310-5) 98 [degF] Oxygen Saturation (79178-4) 95 % Respiratory Rate (9279-1) 16 /min Heart Rate (8867-4) 70 /min Blood Pressure Systolic (8480-6) 118 mm[Hg] Blood Pressure Diastolic (8462-4) 62 mm[Hg] 01/27/2025 03:23 AM Temperature (8310-5) 97.8 [degF] Oxygen Saturation (81315-7) 94 % Respiratory Rate (9279-1) 18 /min Heart Rate (8867-4) 73 /min Blood Pressure Systolic (8480-6) 120 mm[Hg] Blood Pressure Diastolic (8462-4) 69 mm[Hg] 01/27/2025 09:14 AM Temperature (8310-5) 98.2 [degF] Oxygen Saturation (72545-1) 99 % Respiratory Rate (9279-1) 18 /min Heart Rate (8867-4) 78 /min Blood Pressure Systolic (8480-6) 105 mm[Hg] Blood Pressure Diastolic (8462-4) 60 mm[Hg] 01/27/2025 09:08 PM Temperature (8310-5) 98 [degF] Oxygen Saturation (98586-0) 95 % Respiratory Rate (9279-1) 18 /min Heart Rate (8867-4) 88 /min Blood Pressure Systolic (8480-6) 132 mm[Hg] Blood Pressure Diastolic (8462-4) 78 mm[Hg] 01/28/2025 11:34 AM Temperature (8310-5) 97.7 [degF] Oxygen Saturation (81478-5) 92 % Respiratory Rate (9279-1) 16 /min Heart Rate (8867-4) 70 /min Blood Pressure Systolic (8480-6) 109 mm[Hg] Blood Pressure Diastolic (8462-4) 55 mm[Hg] 01/28/2025 10:17 PM Temperature (8310-5) 97 [degF] Oxygen Saturation (67123-1) 95 % Respiratory Rate (9279-1) 16 /min Heart Rate (8867-4) 88 /min Blood Pressure Systolic (8480-6) 132 mm[Hg] Blood Pressure Diastolic (8462-4) 88 mm[Hg] 01/29/2025 10:28 AM Temperature (8310-5) 97.6 [degF] Oxygen Saturation (16652-3) 94 % Respiratory Rate (9279-1) 22 /min Heart Rate (8867-4) 62 /min Blood Pressure Systolic (8480-6) 122 mm[Hg] Blood Pressure Diastolic (8462-4) 67 mm[Hg] 01/29/2025 08:55 PM Temperature (8310-5) 98 [degF] Oxygen Saturation (62113-8) 96 % Respiratory Rate (9279-1) 18 /min Heart Rate (8867-4) 80 /min Blood Pressure Systolic (8480-6) 132 mm[Hg] Blood Pressure Diastolic (8462-4) 88 mm[Hg] 01/30/2025 10:00 AM Temperature (8310-5) 96.8 [degF] Oxygen Saturation (53519-1) 99 % Respiratory Rate (9279-1) 20 /min Heart Rate (8867-4) 64 /min Blood Pressure Systolic (8480-6) 100 mm[Hg] Blood Pressure Diastolic (8462-4) 68 mm[Hg] 01/31/2025 01:20 AM Temperature (8310-5) 97 [degF] Oxygen Saturation (88094-9) 98 % Respiratory Rate (9279-1) 15 /min Heart Rate (8867-4) 85 /min Blood Pressure Systolic (8480-6) 123 mm[Hg] Blood Pressure Diastolic (8462-4) 62 mm[Hg] 01/31/2025 05:21 PM Temperature (8310-5) 98 [degF] Oxygen Saturation (86056-7) 96 % Respiratory Rate (9279-1) 16 /min Heart Rate (8867-4) 73 /min Blood Pressure Systolic (8480-6) 129 mm[Hg] Blood Pressure Diastolic (8462-4) 68 mm[Hg] 02/01/2025 04:22 AM Respiratory Rate (9279-1) 17 /min Blood Pressure Systolic (8480-6) 128 mm[Hg] Blood Pressure Diastolic (8462-4) 72 mm[Hg] 02/01/2025 04:17 AM Temperature (8310-5) 96.8 [degF] 02/01/2025 05:47 AM Temperature (8310-5) 97 [degF] Oxygen Saturation (87166-0) 96 % Respiratory Rate (9279-1) 18 /min Heart Rate (8867-4) 63 /min Blood Pressure Systolic (8480-6) 115 mm[Hg] Blood Pressure Diastolic (8462-4) 69 mm[Hg] 02/01/2025 04:23 AM Oxygen Saturation (93906-3) 98 % 02/01/2025 04:21 AM Heart Rate (8867-4) 65 /min 02/01/2025 09:44 PM Temperature (8310-5) 97.3 [degF] Heart Rate (8867-4) 65 /min 02/01/2025 09:48 PM Oxygen Saturation (07798-1) 97 % 02/01/2025 09:45 PM Respiratory Rate (9279-1) 17 /min 02/01/2025 09:46 PM Blood Pressure Systolic (8480-6) 1 18 mm[Hg] Blood Pressure Diastolic (8462-4) 67 mm[Hg] 02/02/2025 07:18 AM Body Weight (27078-9) 184.8 [lb_av ] Body Mass Index (66488-5) 28.1 kg/m2 02/02/2025 06:23 AM Temperature (8310-5) 98 [degF] Oxygen Saturation (94239-7) 97 % Respiratory Rate (9279-1) 18 /min Heart Rate (8867-4) 60 /min Blood Pressure Systolic (8480-6) 120 mm[Hg] Blood Pressure Diastolic (8462-4) 62 mm[Hg] 02/02/2025 08:06 PM Temperature (8310-5) 98.3 [degF] Oxygen Saturation (62131-2) 94 % Respiratory Rate (9279-1) 20 /min Heart Rate (8867-4) 62 /min Blood Pressure Systolic (8480-6) 107 mm[Hg] Blood Pressure Diastolic (8462-4) 56 mm[Hg] 02/03/2025 06:12 AM Temperature (8310-5) 98 [degF] Oxygen Saturation (52748-1) 96 % Respiratory Rate (9279-1) 16 /min Heart Rate (8867-4) 66 /min Blood Pressure Systolic (8480-6) 118 mm[Hg] Blood Pressure Diastolic (8462-4) 66 mm[Hg] 02/03/2025 07:26 PM Temperature (8310-5) 98.1 [degF] Oxygen Saturation (03892-5) 95 % Respiratory Rate (9279-1) 14 /min Heart Rate (8867-4) 66 /min Blood Pressure Systolic (8480-6) 112 mm[Hg] Blood Pressure Diastolic (8462-4) 62 mm[Hg] 02/04/2025 06:48 AM Temperature (8310-5) 98.2 [degF] Oxygen Saturation (05627-3) 96 % Respiratory Rate (9279-1) 16 /min Heart Rate (8867-4) 70 /min Blood Pressure Systolic (8480-6) 120 mm[Hg] Blood Pressure Diastolic (8462-4) 68 mm[Hg] 02/04/2025 07:54 PM Temperature (8310-5) 97.1 [degF] Oxygen Saturation (76669-8) 98 % Respiratory Rate (9279-1) 18 /min Heart Rate (8867-4) 62 /min Blood Pressure Systolic (8480-6) 135 mm[Hg] Blood Pressure Diastolic (8462-4) 77 mm[Hg] 02/05/2025 06:25 AM Temperature (8310-5) 97.5 [degF] Oxygen Saturation (08278-2) 94 % Respiratory Rate (9279-1) 16 /min Heart Rate (8867-4) 66 /min Blood Pressure Systolic (8480-6) 120 mm[Hg] Blood Pressure Diastolic (8462-4) 68 mm[Hg] 02/05/2025 08:01 PM Temperature (8310-5) 96.8 [degF] Oxygen Saturation (33399-3) 97 % Respiratory Rate (9279-1) 16 /min Heart Rate (8867-4) 70 /min Blood Pressure Systolic (8480-6) 98 mm[Hg] Blood Pressure Diastolic (8462-4) 61 mm[Hg] 02/06/2025 05:11 PM Temperature (8310-5) 97.1 [degF] Oxygen Saturation (06518-4) 97 % Respiratory Rate (9279-1) 19 /min [...]
[2025-06-05 23:05] LABS: Hematocrit 37.2 % (37-53); Hemoglobin 11.90 g/dL (11.27-16.99); Mean Corpuscular HGB Conc 32.0 g/dL (30-55); Mean Corpuscular Hemoglobin 27.7 pg (27-33); Mean Corpuscular Volume 86.5 fl (82-101); Nucleated Red Blood Cells % 0 %; Platelet Count 370 10^3/cmm (157-399); Red Blood Count 4.30 10^6/uL (3.85-5.65); White Blood Count 19.21 10^3/uL (3.29-11.43)
[2025-06-05 23:20] LABS: Alanine Aminotransferase 15 U/L (0-41); Albumin Level 3.3 g/dL (3.5-5.2); Alkaline Phosphatase 119 U/L (40-130); Anion Gap 18.0 (5-19); Aspartate Amino Transferase 16 U/L (0-40); Blood Urea Nitrogen 18 mg/dL (8-23); Calcium 9.1 mg/dL (8.5-10.5); Carbon Dioxide 24 mmol/L (22-29); Chloride 98 mmol/L (98-107); Creatinine Clr Calc Pharmacy 54.4572; Globulin 3.8 g/dL (1.3-4.6); Glucose 167 mg/dL (65-115); Osmolality Calculated 288 mOsm/kg (285-295); Potassium 4.0 mmol/L (3.5-5.1); Sodium 136 mmol/L (136-145); Total Protein 7.1 g/dL (6.6-8.7)
[2025-06-05 23:21] LABS: Lactic Sepsis W/Reflex 2.8 mmol/L (0.5-2.2)
[2025-06-06] VITALS (12 sets, daily range): BP systolic 114–130; BP diastolic 62–71; PULSE 67–90; RESP 16–20; TEMP 36.6–37.1; O2SAT 95–100
[2025-06-06 00:08] LABS: Glucose Urine UA Negative (Normal); Nitrate Urine Positive (Negative); Specific Gravity, Urine 1.015 (1.005-1.030)
[2025-06-06 00:11] LABS: Add Urine Microscopic? YES
[2025-06-06] MEDS: piperacillin-tazobactam 4.5 GM in sodium chloride 0.9% (plus) 50 ML IV (00:22)
[2025-06-06 00:24] LABS: UA Slide Review UA Slide Review Perf
[2025-06-06 00:46] LABS: Reflex Lactate Order REFLEX LACTIC ORDERD
[2025-06-06] MEDS: morphine 4 mg/mL SDV 1 mL IVP ×2 (02:26→08:32)
[2025-06-06 02:46] LABS: Lactic Acid level (Lactate) 1.8 mmol/L (0.5-2.2)
--- NOTE | 2025-06-06 03:17 | PM.HP ---
Providers/Chief Complaint Admitting Physician: Nadia Valdes MD--- patient seen and evaluated after 12 midnight Primary Care Provider: Trisha Urena MD Chief Complaint: possible uti History of Present Illness Raphael Deal is a 75 year old male with medical history significant for prostate cancer with bilateral nephrostomy coming in because of confusion being encephalopathic patient has UTI. Patient lives at the shelter and comes from shelter because he was noted to be confused. A review of medical items white count was 19,000 urinalysis significant for urinary tract infection. Patient had had UTI in the recent past and it was significant for Enterococcus faecalis VRE. He does not have fever does not have any pneumonia does not have anything. Patient does have Villanueva to gravity chronically. And nurse just called me that this patient said he feels like jumping in front of a truck and killing himself. I feel that this is a suicidal ideation and the psychiatric will have to talk with him and evaluate him and see what they need to do. The Zosyn for UTI to cover the gram-negative and gram-positive. And follow culture and optimize accordingly. All other like Review of Systems Narrative: System review upon 10 organ review we are significant for systemic illness with confusion in the setting of UTI. Medications/Allergies Home Medications ?Medication ?Instructions ?Recorded ?Confirmed ?Last Taken ?Type fluticasone 100 mcg-salmeterol 50 1 inh inhalation BID 10/03/21 06/06/25 06/05/25 20:04 History mcg/dose blistr powdr for inhalation (Wixela Inhub) acetaminophen 325 mg tablet 650 mg PO Q6H PRN Pain 07/02/23 06/06/25 06/05/25 06:34 History (Tylenol) flash glucose scanning reader #1 ea 08/25/23 02/24/25 Unknown Rx (FreeStyle Jimi 2 [place]) FreeStyle Jimi 2 Sensor (flash #6 ea 12/11/23 02/24/25 Unknown Rx glucose sensor) blood-glucose sensor (Dexcom G7 #3 ea 02/08/24 02/24/25 Unknown Rx Sensor device) blood-glucose,natural resources instructor,cont #1 ea 02/08/24 02/24/25 Unknown Rx (Dexcom G7 Culinary Director) albuterol sulfate 90 mcg/actuation 2 puff inhalation Q4H PRN Dyspnea 04/27/24 06/06/25 06/22/23 History aerosol inhaler furosemide 20 mg tablet 20 mg PO DAILY 04/27/24 06/06/25 06/05/25 06:37 History atorvastatin 80 mg tablet 80 mg PO DAILY 11/26/24 06/06/25 06/05/25 06:37 History digoxin 125 mcg (0.125 mg) tablet 125 mcg PO DAILY 11/26/24 06/06/25 06/05/25 06:37 History fluticasone propionate 50 1 spray intranasal DAILY 11/26/24 06/06/25 06/05/25 06:37 History mcg/actuation nasal spray,suspension hydrocodone 7.5 mg-acetaminophen 1 tab PO BID PRN Pain 11/26/24 06/06/25 06/04/25 19:18 History 325 mg tablet insulin lispro 100 unit/mL See Rx Instructions .Route .COMPLEX 11/26/24 06/06/25 1 Day Ago History subcutaneous pen ~06/05/25 metformin 500 mg tablet 500 mg PO DAILY 11/26/24 06/06/25 06/05/25 06:37 History omeprazole 20 mg capsule,delayed 20 mg PO DAILY 11/26/24 06/06/25 06/05/25 06:37 History release ondansetron HCl 4 mg tablet 4 mg PO TID PRN Nausea And Vomiting 11/26/24 06/06/25 05/26/25 21:25 History silver sulfadiazine 1 % topical 1 applic topical BID 11/26/24 06/06/25 06/05/25 08:00 History cream amiodarone 200 mg tablet 200 mg PO DAILY 02/24/25 06/06/25 06/05/25 06:37 History fentanyl 100 mcg/hr transdermal 100 mcg transdermal 3XD 06/06/25 06/06/25 06/04/25 13:09 History patch fosfomycin tromethamine 3 gram See Rx Instructions .Route .COMPLEX 06/06/25 06/06/25 06/05/25 06:37 History oral packet insulin glargine 100 unit/mL (3 25 unit SUBCUT DAILY 06/06/25 06/06/25 06/05/25 06:37 History mL) subcutaneous pen (Lantus Solostar U-100 Insulin) insulin lispro 100 unit/mL 10 unit SUBCUT TIDWM 06/06/25 06/06/25 Unknown History subcutaneous pen nystatin 100,000 unit/gram topical 1 applic topical TID 06/06/25 06/06/25 06/05/25 20:04 History powder simethicone 125 mg capsule See Rx Instructions .Route 06/06/25 06/06/25 Unknown History .COMPLEX PRN Gas Allergies Allergy/AdvReac Type Severity Reaction Status Date / Time pollen extracts Allergy Unknown Verified 02/24/25 09:23 PFSH Acute PFSH: Medical History Yeast UTI Hematuria due to acute cystitis Mild cognitive impairment with memory loss Bacteriuria Alzheimer disease 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 mellitus History of Doppler ultrasound 08/2021 venous no DVT BLE 08/2021 arterial patent vessels, left posterior tibial may be less than 60% stenosis, left dorsalis pedis not visualized Gait instability SARS-CoV-2 positive positive test 11/17/2021 symptoms weakness, hypoglycemia, altered mental status and low grade fever Anemia Intermittent self-catheterization of bladder due to urinary retention History of sleep study 02/22 limited sleep, no apnea noted but did have nocturnal hypoxemia, recommended to use nocturnal oxygen History of electromyography 01/23 Interpretation: The study provides electrodiagnostic evidence for an axonal sensorimotor polyneuropathy based on small or absent CMAPs and SNAPs with denervation seen distally on EMG. The study is limited for evaluation of lumbar radiculopathy related to the patient's anticoagulated state. History of echocardiogram 05/2021 EF 65% History of cardiovascular stress test 05/2021 normal EKG response, perfusion study without findings of ischemia Diabetes mellitus, type II Chronic anticoagulation Taken off Xarelto secondary to hematuria BPH loc w urin obs/LUTS Obstructive pyelonephritis 09/2021 required ureteral stent placement Left ureteral calculus Diabetic foot ulcer 08/2021 - treated with I&D, antibiotics and wound care clinic management Lumbar stenosis with neurogenic claudication 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 mellitus Cervicalgia of [id number]-[id number] region Lumbar stenosis L2/3, L3/4, L4/L5, with radiculopathy right lower extremity H/O prostate cancer Obstructive sleep apnea Refuses CPAP HTN (hypertension) previously on treatment for high blood pressure Atrial fibrillation Surgical History Status post excisional debridement 08/2021 left foot History of laminectomy 03/25 bilateral with partial facetectomies at L2-3, L3-4, L4-[address] Smith Other postprocedural status history of radiofrequency ablation for back pain x 2 Status post laser lithotripsy of ureteral calculus (11/06/21) S/P ureteral stent placement (09/2021) subsequent removal H/O esophagogastroduodenoscopy (10/30/21) 10/2021 pedunculated polyps removed from first portion of duodenum, otherwise normal History of colonoscopy (10/30/21) 11/2021 diverticulosis of sigmoid colon and internal hemorrhoids, sessile polyps removed History of back surgery S/P tonsillectomy S/P appendectomy History of pilonidal cyst Family History Grandmother Heart disease Hypertension Grandfather Hypertension MATERNAL Diabetes Mother No problems noted. Father No problems noted. 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 Data 06/06/25 04:12 06/06/25 04:12 Micro: Microbiology 06/05/25 23:50 Blood Culture - Preliminary Blood SPECIMEN COLLECTED 06/05/25 23:42 Blood Culture - Preliminary Blood SPECIMEN COLLECTED A&P Assessment and plan 1. Acute lactic acidosis: 2. Pyuria: 3. Acute encephalopathy: 4. Vertebral osteomyelitis: 5. Complicated UTI (urinary tract infection): 6. Metabolic acidosis: 7. Hydroureteronephrosis: Plan: Acute cystitis with encephalopathy Sent urine and blood for cultures and follow-up cultures and optimize accordingly - Gentle hydration of fluid - Must continue to monitor - Antibiotics with Zosyn had been ordered for care to cover broad-spectrum with UTI and any other microorganism in this line Because of infection patient has lactic acidosis - Will repeat lactate make sure that is coming down Mental illness - Will consult psychiatry because of suicidal ideation Continue to follow through. Patient needs counseling and medication optimization most likely. And patient is actually overdosing on his medicine he is on Depakote he is on propranolol he is on all this medicine that he is overdosing and these are not medicine that can be very lethal he just does not know what to do he is frustrated. PDMP PDMP Reviewed: Last Reviewed 06/06/25 08:25 by Nadia Valdes MD Attestations Medical Necessity Statement*: Patient is with UTI and has encephalopathy with confusion. Will need at least 2 midnights for optimization of care. Patient is a constipation as well. Coding Level of Care Code 19975 Diagnoses Acute lactic acidosis E87.21 Pyuria R82.81 Acute encephalopathy G93.40 Vertebral osteomyelitis M46.20 Complicated UTI (urinary tract infection) N39.0 Metabolic acidosis E87.20 Hydroureteronephrosis N13.30 Time Spent (min) 60
--- NOTE | 2025-06-06 03:18 | PC.NURSE ---
pt resides in intermediate
--- NOTE | 2025-06-06 03:46 | PC.NURSE ---
Admission questions completed to the best of this nurse's ability. Pt presents fairly altered in mentation and making suicidal comments including, I want to jump off a bridge, I can't take this pain anymore Upon further questioning, pt states if his pain was away he would not have those thoughts. Pt also states I currently do not have a plan and you do not need to worry about me hurting myself was contacted for SI and psych consult. Lucio verbalized understanding and stated she will order a consult for psych to evaluate pt.
[2025-06-06 04:43] LABS: Hematocrit 32.7 % (37-53); Hemoglobin 10.50 g/dL (11.27-16.99); Mean Corpuscular HGB Conc 32.1 g/dL (30-55); Mean Corpuscular Hemoglobin 27.8 pg (27-33); Mean Corpuscular Volume 86.5 fl (82-101); Nucleated Red Blood Cells % 0 %; Platelet Count 294 10^3/cmm (157-399); Red Blood Count 3.78 10^6/uL (3.85-5.65); White Blood Count 17.16 10^3/uL (3.29-11.43)
[2025-06-06 05:06] LABS: Alanine Aminotransferase 13 U/L (0-41); Albumin Level 3.2 g/dL (3.5-5.2); Alkaline Phosphatase 107 U/L (40-130); Anion Gap 14.0 (5-19); Aspartate Amino Transferase 15 U/L (0-40); Blood Urea Nitrogen 18 mg/dL (8-23); Calcium 8.5 mg/dL (8.5-10.5); Carbon Dioxide 26 mmol/L (22-29); Chloride 103 mmol/L (98-107); Creatinine Clr Calc Pharmacy 65.6711; Globulin 3.1 g/dL (1.3-4.6); Glucose 189 mg/dL (65-115); Magnesium 1.6 mg/dL (1.7-2.3); Osmolality Calculated 295 mOsm/kg (285-295); Potassium 4.0 mmol/L (3.5-5.1); Sodium 139 mmol/L (136-145); Total Protein 6.3 g/dL (6.6-8.7)
--- NOTE | 2025-06-06 09:04 | PC.CHAP ---
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 vp of technology visit [] Patient/Family/Request visit [] Outpatient visit [] Follow-up visit [] Physician referral [] Code/Alert [] Routine visit [] Staff referral [] Actively dying [] Patient sleeping [] Family support [] [] Out of room [] Palliative care [] [] Receiving care in room [] Pre-surgical visit [] Trauma [] Long length of stay [] ICU visit [] Other: Relational/Emotional Strength [] Patient feels connected with others/family/visitors/staff [] Distress [] Loneliness/isolation [] Abandonment Spirituality of Patient [] Person of Melva [] Attends Congregational of their Melva [] Believes in Prayer [] Reads Bible or Hinduism materials [] There are Spiritual issues to be addressed 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 [] Prayer [] Active listening [] Non-anxious presence [] Spiritual/emotional support [] Crisis/trauma care [] Spiritual counseling [] Bereavement support [] Provided bereavement packet [] Provided Bible/devotional materials [] Provided toy/stuffed animal, coloring book to patient or family member [] Provided Communion [] Anointing/[place] [] Salvation [] Completed spiritual assessment [] Other: Impact on Illness or Injury [] Angry [] Fearful [] Anxious [] Often cries [] Exhaustion [] Unable to work [] Unable to attend orthodox [] Unable to walk/stand [] Unable to read [] Unable to drive [] Unable to eat/drink [] Unable to sleep [] Unable to be with family [] Patient intubated [] Other: Summary Time spent with patient
--- NOTE | 2025-06-06 10:12 | PC.PHAR ---
Pt is from [facility]. Pt has 2 orders for short acting insulin: 1st is 10 units tid, 2nd is Sliding scale dosing.
[2025-06-06] MEDS: piperacillin-tazobactam 3.375 GM in sodium chloride 0.9% (plus) 50 ML IV ×2 (11:35→18:03)
--- NOTE | 2025-06-06 14:23 | PM.MISC ---
Miscellaneous Note Note: Patient resting comfortably in bed at this time. WBC count 17,000, hemoglobin 10.5, creatinine 1.0. Magnesium 1.6 this morning. Nephrostomy tubes draining urine. Patient states he had a really high fever at home and that is the reason of his visit. He generally knows why he is in the hospital and was going home however has difficulty remembering dates. He states he last time had his nephrostomy tubes exchanged at [facility]. He is unable to tell me the name of his urologist.
--- NOTE | 2025-06-06 15:06 | W.PM.PSYCONS ---
Providers/Reason for Consult Consulting Physican/Specialty*: [facility]/Psychiatry Reason for Consult*: suicidal ideation Attending Physician: Lillian Pascal MD Primary Care Provider: Trisha Urena MD Psych Consult HPI History of Present Illness Raphael Deal is a 75 year old male admitted with acute cystitis with encephalopathy who had been residing at a halfway and has had a recent urinary tract infection. The patient had acknowledged that he is in substantial pain and reported that when he had arrived here he had stated that the pain was bad enough that he had felt like jumping in front of a truck and killing himself. On interview today, the patient reports that his pain has been better managed and states that he does not have any thoughts of hurting himself or others. He reports that he has never seen a psychiatrist before. He indicates that he has problems with his memory. He reports that he is in the halfway because of his problems with being able to care for himself as he had stated that his daughter was no longer able to help him. He denied any drug or alcohol use. The patient had denied any past history of having any PTSD symptoms. He had denied any psychotic symptoms. Previous records indicate that the patient has had a history of acute mental status changes at times when hospitalized. He denied any feelings of hopelessness or worthlessness. He denied any history of taylor. He had reported no prior history of suicide attempts. Psychiatric history: None reported Substance abuse history: None reported history: Patient reported having served 21 years in the [employer] with an honorable discharge. Legal history: None Medical history: As stated Surgical history: As stated Medications: See below Family psychiatric history: None reported Social history: Patient reports that he had grown up living in multiple states. He had served in the [employer] and states that he had graduated high school. 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 He reports that he is and has children. He states that he is currently in a halfway. Meds Home Medications and Allergies Home Medications ?Medication ?Instructions ?Recorded ?Confirmed ?Last Taken ?Type fluticasone 100 mcg-salmeterol 50 1 inh inhalation BID 10/03/21 06/06/25 06/05/25 20:04 History mcg/dose blistr powdr for inhalation (Wixela Inhub) acetaminophen 325 mg tablet 650 mg PO Q6H PRN Pain 07/02/23 06/06/25 06/05/25 06:34 History (Tylenol) flash glucose scanning reader #1 ea 08/25/23 06/06/25 Unknown Rx (FreeStyle Jimi 2 [place]) FreeStyle Jimi 2 Sensor (flash #6 ea 12/11/23 06/06/25 Unknown Rx glucose sensor) blood-glucose sensor (Dexcom G7 #3 ea 02/08/24 06/06/25 Unknown Rx Sensor device) blood-glucose,ham pumper,cont #1 ea 02/08/24 06/06/25 Unknown Rx (Dexcom G7 [facility] [place]) albuterol sulfate 90 mcg/actuation 2 puff inhalation Q4H PRN Dyspnea 04/27/24 06/06/25 06/22/23 History aerosol inhaler furosemide 20 mg tablet 20 mg PO DAILY 04/27/24 06/06/25 06/05/25 06:37 History atorvastatin 80 mg tablet 80 mg PO DAILY 11/26/24 06/06/25 06/05/25 06:37 History digoxin 125 mcg (0.125 mg) tablet 125 mcg PO DAILY 11/26/24 06/06/25 06/05/25 06:37 History fluticasone propionate 50 1 spray intranasal DAILY 11/26/24 06/06/25 06/05/25 06:37 History mcg/actuation nasal spray,suspension hydrocodone 7.5 mg-acetaminophen 1 tab PO BID PRN Pain 11/26/24 06/06/25 06/04/25 19:18 History 325 mg tablet insulin lispro 100 unit/mL See Rx Instructions .Route .COMPLEX 11/26/24 06/06/25 1 Day Ago History subcutaneous pen ~06/05/25 metformin 500 mg tablet 500 mg PO DAILY 11/26/24 06/06/25 06/05/25 06:37 History omeprazole 20 mg capsule,delayed 20 mg PO DAILY 11/26/24 06/06/25 06/05/25 06:37 History release ondansetron HCl 4 mg tablet 4 mg PO TID PRN Nausea And Vomiting 11/26/24 06/06/25 05/26/25 21:25 History amiodarone 200 mg tablet 200 mg PO DAILY 02/24/25 06/06/25 06/05/25 06:37 History fentanyl 100 mcg/hr transdermal 100 mcg transdermal 3XD 06/06/25 06/06/25 06/04/25 13:09 History patch fosfomycin tromethamine 3 gram See Rx Instructions .Route .COMPLEX 06/06/25 06/06/25 06/05/25 06:37 History oral packet insulin glargine 100 unit/mL (3 25 unit SUBCUT DAILY 06/06/25 06/06/25 06/05/25 06:37 History mL) subcutaneous pen (Lantus Solostar U-100 Insulin) insulin lispro 100 unit/mL 10 unit SUBCUT TIDWM 06/06/25 06/06/25 06/05/25 History subcutaneous pen nystatin 100,000 unit/gram topical 1 applic topical TID 06/06/25 06/06/25 06/05/25 20:04 History powder polyethylene glycol 3350 17 17 g PO DAILY PRN Constipation 06/06/25 06/06/25 04/22/25 History gram/dose oral powder (Miralax) simethicone 125 mg capsule See Rx Instructions .Route 06/06/25 06/06/25 Unknown History .COMPLEX PRN Gas Allergies Allergy/AdvReac Type Severity Reaction Status Date / Time pollen extracts Allergy Unknown Verified 02/24/25 09:23 Current Medications Current Medications Generic Name Dose Route Start Last Admin Trade Name Freq PRN Reason Stop Dose Admin Docusate Sodium 100 mg 06/06/25 09:00 06/06/25 08:32 Docusate Sodium 100 Mg Capsule PO 100 mg BID ROSALBA Administration Fondaparinux 2.5 mg 06/06/25 12:15 06/06/25 13:58 Fondaparinux 2.5 Mg/0.5 Ml Syringe SUBCUT 2.5 mg DAILY ROSALBA Administration Sodium Chloride 1,000 mls @ 100 mls/hr 06/06/25 03:16 06/06/25 13:58 Sodium Chloride 0.9% IV 100 mls/hr .Q10H ROSALBA Administration Piperacillin Sod/Tazobactam 50 mls @ 12.5 mls/hr 06/06/25 11:00 06/06/25 13:58 Sod 3.375 gm/ Sodium Chloride IV Infused Q8H ROSALBA Infusion Protocol Morphine Sulfate 4 mg 06/06/25 03:16 06/06/25 08:32 Morphine 4 Mg/Ml Sdv 1 Ml IVP 4 mg Q4H PRN Administration SEVERE PAIN Pantoprazole Sodium 40 mg 06/06/25 09:00 06/06/25 08:[address] 40 Mg Tablet PO 40 mg DAILY ROSALBA Administration PFSH NPU PFSH: Medical History (Updated 06/06/25 @ 15:26 by Abdiel Pettit MD) Yeast UTI Hematuria due to acute cystitis Mild cognitive impairment with memory loss Bacteriuria Alzheimer disease 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 mellitus History of Doppler ultrasound 08/2021 venous no DVT BLE 08/2021 arterial patent vessels, left posterior tibial may be less than 60% stenosis, left dorsalis pedis not visualized Gait instability SARS-CoV-2 positive positive test 11/17/2021 symptoms weakness, hypoglycemia, altered mental status and low grade fever Anemia Intermittent self-catheterization of bladder due to urinary retention History of sleep study 02/22 limited sleep, no apnea noted but did have nocturnal hypoxemia, recommended to use nocturnal oxygen History of electromyography 01/23 Interpretation: The study provides electrodiagnostic evidence for an axonal sensorimotor polyneuropathy based on small or absent CMAPs and SNAPs with denervation seen distally on EMG. The study is limited for evaluation of lumbar radiculopathy related to the patient's anticoagulated state. History of echocardiogram 05/2021 EF 65% History of cardiovascular stress test 05/2021 normal EKG response, perfusion study without findings of ischemia Diabetes mellitus, type II Chronic anticoagulation Taken off Xarelto secondary to hematuria BPH loc w urin obs/LUTS Obstructive pyelonephritis 09/2021 required ureteral stent placement Left ureteral calculus Diabetic foot ulcer 08/2021 - treated with I&D, antibiotics and wound care clinic management Lumbar stenosis with neurogenic claudication 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 mellitus Cervicalgia of tunfytwe-gpgfsjp-elgjy region Lumbar stenosis L2/3, L3/4, L4/L5, with radiculopathy right lower extremity H/O prostate cancer Obstructive sleep apnea Refuses CPAP HTN (hypertension) previously on treatment for high blood pressure Atrial fibrillation Surgical History Status post excisional debridement 08/2021 left foot History of laminectomy 03/25 bilateral with partial facetectomies at L2-3, L3-4, L4-[address] Sarah Other postprocedural status history of radiofrequency ablation for back pain x 2 Status post laser lithotripsy of ureteral calculus (11/06/21) S/P ureteral stent placement (09/2021) subsequent removal H/O esophagogastroduodenoscopy (10/30/21) 10/2021 pedunculated polyps removed from first portion of duodenum, otherwise normal History of colonoscopy (10/30/21) 11/2021 diverticulosis of sigmoid colon and internal hemorrhoids, sessile polyps removed History of back surgery S/P tonsillectomy S/P appendectomy History of pilonidal cyst Family History Grandmother Heart disease Hypertension Grandfather Hypertension MATERNAL Diabetes Mother No problems noted. Father No problems noted. 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 He had stated that the pain was under better control with medications currently. He was alert and oriented to person and place but not date. He thought today's date was May 21, 2013. His speech was somewhat slowed with normal volume and some word finding difficulties. His mood was described as better. His affect appeared somewhat restricted as he appeared to be in some noticeable difficulty discomfort particularly described in his back. His attention span was variable. He is immediate recall of words was 2 out of 3. He had 0 out of 3 words recalled after 5 minutes. There was no evidence of delusional thinking. He did not appear to be responding to internal stimuli. He denied any homicidal or suicidal ideation. His insight is limited. His judgment appeared guarded. His impulse control appeared fair. Vitals/I&O/Wt Last Vital Signs Temp 97.8 F 06/06/25 11:34 Pulse 80 06/06/25 11:34 Resp 17 06/06/25 11:34 BP 115/71 06/06/25 11:34 Pulse Ox 95 06/06/25 11:34 O2 Del Method Room Air 06/06/25 11:34 06/06/25 06/06/25 06/06/25 06:59 14:59 22:59 Intake Total 1050 / 1050 1770 / 1770 Output Total 1700 / 1700 500 / 500 Balance -650 / -650 1270 / 1270 Weight last 48 hrs Weight 82.1 kg Weight 82.1 kg Weight 81.193 kg Data NPU 06/06/25 04:12 06/06/25 04:12 Micro: Microbiology 06/05/25 23:50 Blood Culture - Preliminary Blood SPECIMEN COLLECTED 06/05/25 23:42 Blood Culture - Preliminary Blood SPECIMEN COLLECTED Microbiology 06/05/25 23:50 Blood Blood Culture - Preliminary SPECIMEN COLLECTED 06/05/25 23:42 Blood Blood Culture - Preliminary SPECIMEN COLLECTED A&P Assessment and plan 1. Dementia: 2. Anxiety disorder: Plan: 75-year-old male with no psychiatric history reported who reports that he may have felt suicidal initially when arriving here with pain but states that he is currently feeling better and is no longer suicidal with no prior history of suicidal attempts. The patient may have a dementia process as well as possible encephalopathy. #1. Will continue to follow but hold on any addition of any medications at this time as I do not feel like the patient is an acute threat to harm himself. #2. Hopefully the patient's confusion will resolve. Evaluate dementia versus delirium. #3. Will attempt to gather collateral information. PDMP PDMP Reviewed: Not Reviewed Attestations NPU Medical Necessity Statement*: Continue medical stay here, inpatient hospitalization not medically necessary. Coding Level of Care Code Acute Code for g Fwd Diagnoses Dementia F03.90 Anxiety disorder F41.9
[2025-06-06 20:47] LABS: Bacillus cereus group Not Detected (NOT DETECT); Bacillus subtillis group Not Detected (NOT DETECT); Corynebacterium Not Detected (NOT DETECT); Cutibacterium acnes (P.acnes) Not Detected (NOT DETECT); Enterococcus faecalis Not Detected (NOT DETECT); Enterococcus faecium Not Detected (NOT DETECT); Listeria Not Detected (NOT DETECT); Micrococcus Not Detected (NOT DETECT); Pan Candida Not Detected (NOT DETECT); Pan Gram-Negative Not Detected (NOT DETECT); Staphylococcus epidermidis Detected (NOT DETECT); Staphylococcus lugdunensis Not Detected (NOT DETECT); Staphylococcus species Detected (NOT DETECT); Streptococcus anginosus group Not Detected (NOT DETECT); Streptococcus pyogenes Not Detected (NOT DETECT); Streptococcus species Not Detected (NOT DETECT); mecA Detected (NOT DETECT); mecC Not Detected (NOT DETECT)
[2025-06-07] VITALS (10 sets, daily range): BP systolic 101–128; BP diastolic 50–74; PULSE 66–79; RESP 16–18; TEMP 36.4–37.3; O2SAT 95–99
[2025-06-07] MEDS: piperacillin-tazobactam 3.375 GM in sodium chloride 0.9% (plus) 50 ML IV ×3 (02:44→17:39)
[2025-06-07 05:06] LABS: Hematocrit 29.7 % (37-53); Hemoglobin 9.40 g/dL (11.27-16.99); Mean Corpuscular HGB Conc 31.6 g/dL (30-55); Mean Corpuscular Hemoglobin 27.7 pg (27-33); Mean Corpuscular Volume 87.6 fl (82-101); Nucleated Red Blood Cells % 0 %; Platelet Count 270 10^3/cmm (157-399); Red Blood Count 3.39 10^6/uL (3.85-5.65); White Blood Count 14.10 10^3/uL (3.29-11.43)
[2025-06-07 05:33] LABS: Anion Gap 14.8 (5-19); Blood Urea Nitrogen 19 mg/dL (8-23); Calcium 8.0 mg/dL (8.5-10.5); Carbon Dioxide 23 mmol/L (22-29); Chloride 104 mmol/L (98-107); Creatinine Clr Calc Pharmacy 65.6711; Glucose 203 mg/dL (65-115); Osmolality Calculated 294 mOsm/kg (285-295); Potassium 3.8 mmol/L (3.5-5.1); Sodium 138 mmol/L (136-145)
[2025-06-07 05:34] LABS: Magnesium 1.6 mg/dL (1.7-2.3)
[2025-06-07] MEDS: ondansetron 2 mg/ML SDV 2 mL 4 MG IVP (08:34)
[2025-06-07] MEDS: morphine 4 mg/mL SDV 1 mL IVP ×3 (08:37→17:36)
--- NOTE | 2025-06-07 08:39 | PC.NURSE ---
Patient has a Fentanyl patch to right chest and is dated 06/04/25. Will talk to physician about continuing order.
--- NOTE | 2025-06-07 11:53 | MR_ITS ---
WS: [id number] MRI LUMBAR SPINE WITH CONTRAST TECHNIQUE: Sagittal T1, T2 and STIR imaging. Axial T1 and T2 imaging. Post gadolinium imaging was obtained. CLINICAL INFORMATION: r/o osteomyelitis , bacteremia COMPARISON: Multiple prior MRIs dating back to 2018. FINDINGS: Some images limited due to motion artifact Mild lumbar curve. No acute compression. Endplate edema with enhancement at L3-4 with suspected phlegmon in the disc space. Findings suspicious for discitis/osteomyelitis. Associated paravertebral soft tissue edema and enhancement extending into the psoas LEFT greater than RIGHT. No drainable fluid collections. Chronic disc desiccation at L2-3 with a small amount of endplate enhancement suspicious for discitis/osteomyelitis at this level. This has a similar appearance compared to the prior examinations and may be partially treated. L1-L2: Normal. L2-L3: Chronic disc space narrowing. Moderate facet arthropathy. Moderate RIGHT and mild LEFT foraminal narrowing. L3-L4: Mild to moderate central canal stenosis. Shallow central protrusion impinges the subarticular recess. Moderate facet arthropathy. Moderate bilateral foraminal narrowing. L4-L5: Grade 1 anterolisthesis. Mild central canal stenosis. Impingement on the traversing LEFT L5 nerve root. Moderate facet arthropathy. Mild LEFT greater than RIGHT foraminal narrowing. L5-S1: Mild annular bulging. Small annular fissure. Mild facet arthropathy. Narrowing of the RIGHT subarticular recess. Foramen are patent. Visualized pelvic bony structures: Normal. Paravertebral soft tissues: Normal. Small bilateral renal cysts. MR/MR lumbar spine wo/w con [id number] IMPRESSION: Some images are limited due to motion artifact 1. Endplate edema with paravertebral soft tissue edema and enhancement suspici ous for discitis/osteomyelitis at the L3-4 level. 2. Small amount of enhancement at the L2-3 level also suspicious for discitis/ osteomyelitis although similar in appearance to the prior studies at this level . 3. No drainable abscess or drainable fluid collection. 4. Chronic mild to moderate central canal stenosis L3-4 due to disc bulging wi th facet arthropathy and ligamentum flavum hypertrophy.
--- NOTE | 2025-06-07 11:55 | MR_ITS ---
WS: [id number] MRI HEAD WITHOUT CONTRAST TECHNIQUE: Sagittal T1, T2 axial, T2 axial FLAIR, axial and coronal T1 images, axial susceptibility weighted imaging, axial diffusion weighted images, and coronal T2 images were obtained. CLINICAL INFORMATION: encephalopathy COMPARISON: None. FINDINGS: No evidence of restricted diffusion to suggest acute ischemia. Minimal small vessel changes. Mild parenchymal volume loss. Tiny chronic lacunar infarct RIGHT cerebellum. Normal vascular flow voids at the skull base. No extra-axial fluid collections. Paranasal sinuses and mastoid air cells are well aerated. No hemosiderin. Moderate symmetric atrophy temporal lobes and hippocampal formations. No other acute findings. MR/MR head wo con* [id number] IMPRESSION: 1. No evidence of restricted diffusion to suggest acute ischemia. 2. Minimal small vessel changes. Mild parenchymal volume loss. 3. Tiny chronic lacunar infarct RIGHT cerebellum. 4. No other acute findings
--- NOTE | 2025-06-07 12:40 | P.PN_ITS ---
Subjective 2 Subjective: seen today able to answer more questions today, mental status improving Vitals/I&O/Wt Last Vital Signs Temp 98.2 F 06/08/25 15:36 Pulse 57 L 06/08/25 15:36 Resp 17 06/08/25 15:48 BP 128/75 06/08/25 15:36 Pulse Ox 96 06/08/25 15:36 O2 Del Method Room Air 06/08/25 15:36 O2 Flow Rate 2 06/08/25 00:00 06/08/25 06/09/25 06/09/25 22:59 06:59 14:59 Intake Total 50 / 160.833 Output Total 700 / 1575 Balance -650 / -1414.167 Weight last 48 hrs Weight 84.425 kg Physical Exam 2 Narrative: AO x2-3, mental status improved, able to answer more questions today, knows where he is HEENT normocephalic/atraumatic neck neck is supple cardiovascular heart rate is regular lungs are pretty much clear abdomen soft nontender nondistended unremarkable extremities are intact no edema has good pulses neurology has no focality lab studies lab studies reviewed and noted. Nephrostomy tubes draining urine bilaterally. Abdomen soft nontender. Data 06/08/25 02:24 06/08/25 02:24 Micro: Microbiology 06/05/25 23:50 Blood Culture - Final Blood Staphylococcus epidermidis Klebsiella pneumonia esbl 06/06/25 00:01 Urine Culture - Final Urine,Clean Catch Klebsiella pneumoniae A&P Assessment and plan 1. Acute lactic acidosis: Resolved 2. Pyuria: 3. Acute encephalopathy: 4. Vertebral osteomyelitis: 5. Complicated UTI (urinary tract infection): 6. Metabolic acidosis: 7. Hydroureteronephrosis: 8. Bacteremia: 9. Discitis: Plan: Acute cystitis with encephalopathy Sent urine and blood for cultures and follow-up cultures and optimize accordingly - Gentle hydration of fluid - Must continue to monitor - Antibiotics with Zosyn had been ordered for care to cover broad-spectrum with UTI and any other microorganism in this line Because of infection patient has lactic acidosis - Will repeat lactate make sure that is coming down Mental illness - Will consult psychiatry because of suicidal ideation Continue to follow through. Patient needs counseling and medication optimization most likely. And patient is actually overdosing on his medicine he is on Depakote he is on propranolol he is on all this medicine that he is overdosing and these are not medicine that can be very lethal he just does not know what to do he is frustrated. 06/07/2025 urine culture positive for gram neg rods blood culture positive but sensitivity pending complains of chronic back pain today mental status improving . Appreciate psychiatry recommendations. Patient is not suicidal. Continue sliding scale insulin. Continue on vancomycin at this time. Continue amiodarone atorvastatin digoxin. Continue Lasix 20 daily. consult ID may need urology referral/transfer to higher level of care PDMP PDMP Reviewed: Not Reviewed Attestations 2 Medical Necessity Statement*: bacteremia, UTI Diagnoses Acute lactic acidosis E87.21 Pyuria R82.81 Acute encephalopathy G93.40 Vertebral osteomyelitis M46.20 Complicated UTI (urinary tract infection) N39.0 Metabolic acidosis E87.20 Hydroureteronephrosis N13.30 Bacteremia R78.81 Discitis M46.40
[2025-06-07] MEDS: gadobenate dimeglumine 20 mL vial 18 ML IV (14:16)
--- NOTE | 2025-06-07 17:12 | PC.NURSE ---
Patient s asks that patient be sent to [facility] Pro[facility] because his stomach hurts a lot after antibiotic's and he will not eat Dr. Pascal notified.
[2025-06-08] VITALS (9 sets, daily range): BP systolic 112–132; BP diastolic 66–78; PULSE 57–79; RESP 16–18; TEMP 36.3–36.8; O2SAT 93–97
[2025-06-08] MEDS: piperacillin-tazobactam 3.375 GM in sodium chloride 0.9% (plus) 50 ML IV ×2 (03:45→11:10)
[2025-06-08 04:19] LABS: Hematocrit 28.8 % (37-53); Hemoglobin 9.00 g/dL (11.27-16.99); Mean Corpuscular HGB Conc 31.3 g/dL (30-55); Mean Corpuscular Hemoglobin 27.4 pg (27-33); Mean Corpuscular Volume 87.5 fl (82-101); Nucleated Red Blood Cells % 0 %; Platelet Count 280 10^3/cmm (157-399); Red Blood Count 3.29 10^6/uL (3.85-5.65); White Blood Count 11.82 10^3/uL (3.29-11.43)
[2025-06-08 04:51] LABS: Anion Gap 14.6 (5-19); Blood Urea Nitrogen 18 mg/dL (8-23); Calcium 8.1 mg/dL (8.5-10.5); Carbon Dioxide 23 mmol/L (22-29); Chloride 103 mmol/L (98-107); Creatinine Clr Calc Pharmacy 55.6667; Glucose 264 mg/dL (65-115); Magnesium 1.6 mg/dL (1.7-2.3); Osmolality Calculated 295 mOsm/kg (285-295); Potassium 3.6 mmol/L (3.5-5.1); Sodium 137 mmol/L (136-145)
[2025-06-08] MEDS: morphine 4 mg/mL SDV 1 mL IVP ×3 (05:17→15:48)
[2025-06-08] MEDS: polyethylene glycol 3350 Pkt 17 gm PO (12:47)
--- NOTE | 2025-06-08 13:00 | P.PN_ITS ---
Subjective 2 Subjective: Seen this morning.. Does complain of mild abdominal pain which he says is chronic for him. Also states he has back pain which is also chronic. Afebrile overnight. White count 11,000 this morning. Nephrostomy tubes draining clear yellow urine. Vitals/I&O/Wt Last Vital Signs Temp 97.9 F 06/08/25 11:41 Pulse 67 06/08/25 11:41 Resp 17 06/08/25 11:41 BP 132/71 06/08/25 11:41 Pulse Ox 96 06/08/25 11:41 O2 Del Method Room Air 06/08/25 11:41 O2 Flow Rate 2 06/08/25 00:00 06/07/25 06/08/25 06/08/25 22:59 06:59 14:59 Intake Total 340 / 1970 110.833 / 110.833 Output Total 1350 / 1350 1000 / 2350 875 / 875 Balance -1010 / 620 -1000 / -380 -764.167 / -764.167 Weight last 48 hrs Weight 84.425 kg Weight 85.275 kg Physical Exam 2 Narrative: Patient is not ill-appearing HEENT normocephalic/atraumatic neck neck is supple cardiovascular heart rate is regular lungs are pretty much clear abdomen soft nontender nondistended unremarkable extremities are intact no edema has good pulses neurology has no focality lab studies lab studies reviewed and noted. Nephrostomy tubes draining urine bilaterally. Abdomen soft nontender. Data 06/08/25 02:24 06/08/25 02:24 Micro: Microbiology 06/06/25 00:01 Urine Culture - Final Urine,Clean Catch Klebsiella pneumoniae 06/05/25 23:50 Blood Culture - Preliminary Blood Staphylococcus epidermidis Staphylococcus species 06/07/25 04:53 Blood Culture - Preliminary Blood NEGATIVE TO DATE 06/07/25 04:48 Blood Culture - Preliminary Blood NEGATIVE TO DATE A&P Assessment and plan 1. Acute lactic acidosis: Resolved 2. Pyuria: 3. Acute encephalopathy: 4. Vertebral osteomyelitis: 5. Complicated UTI (urinary tract infection): 6. Metabolic acidosis: 7. Hydroureteronephrosis: 8. Bacteremia: 9. Discitis: Plan: Acute cystitis with encephalopathy Sent urine and blood for cultures and follow-up cultures and optimize accordingly - Gentle hydration of fluid - Must continue to monitor - Antibiotics with Zosyn had been ordered for care to cover broad-spectrum with UTI and any other microorganism in this line Because of infection patient has lactic acidosis - Will repeat lactate make sure that is coming down Mental illness - Will consult psychiatry because of suicidal ideation Continue to follow through. Patient needs counseling and medication optimization most likely. And patient is actually overdosing on his medicine he is on Depakote he is on propranolol he is on all this medicine that he is overdosing and these are not medicine that can be very lethal he just does not know what to do he is frustrated. 06/08/2025 Patient has bacteremia in 2 out of 4 bottles positive blood cultures Urine culture positive Klebsiella pneumonia sensitivities pending Consult ID. MRI spine shows discitis osteomyelitis as well. Await recommendations from ID. Nephrostomy tubes draining freely. Patient mental status has improved Appreciate psychiatry recommendations. Patient is not suicidal. Continue sliding scale insulin. Continue on vancomycin at this time. Continue amiodarone atorvastatin digoxin. Continue Lasix 20 daily. Will require continued hospitalization and eventually possibly IV antibiotics depending upon ID recommendations. PDMP PDMP Reviewed: Not Reviewed Attestations 2 Medical Necessity Statement*: Active infection discitis, bacteremia, UTI Diagnoses Acute lactic acidosis E87.21 Pyuria R82.81 Acute encephalopathy G93.40 Vertebral osteomyelitis M46.20 Complicated UTI (urinary tract infection) N39.0 Metabolic acidosis E87.20 Hydroureteronephrosis N13.30 Bacteremia R78.81 Discitis M46.40
--- NOTE | 2025-06-08 14:18 | P.TS_ITS ---
Transfer Summary Providers Date of Admission: 06/06/25 01:31 Date of Discharge/Transfer: 06/08/25 Attending Provider at Admission: Nadia Valdes MD Attending Provider at Transfer: Lillian Pascal MD Primary Care Provider: Trisha Urena MD Transfer Plans: Anticipated date of transfer: 06/08/25 . Receiving Facility: [facility] . Receiving Provider: Dr. Mccartney . Diagnoses at Discharge Discharge Diagnosis 1. Acute lactic acidosis: 2. Pyuria: 3. Acute encephalopathy: 4. Vertebral osteomyelitis: 5. Complicated UTI (urinary tract infection): 6. Metabolic acidosis: 7. Hydroureteronephrosis: 8. Bacteremia: 9. Discitis: Reason for Visit Reason for Visit possible uti Brief History: Per Dr. Gonzales Raphael Deal is a 75 year old male with medical history significant for prostate cancer with bilateral nephrostomy coming in because of confusion being encephalopathic patient has UTI. [facility] and comes [facility] prison because he was noted to be confused. A review of medical items white count was 19,000 urinalysis significant for urinary tract infection. Patient had had UTI in the recent past and it was significant for Enterococcus faecalis VRE. He does not have fever does not have any pneumonia does not have anything. Patient does have Villanueva to gravity chronically. And nurse just called me that this patient said he feels like jumping in front of a truck and killing himself. I feel that this is a suicidal ideation and the psychiatric will have to talk with him and evaluate him and see what they need to do. The Zosyn for UTI to cover the gram-negative and gram-positive. And follow culture and optimize accordingly. All other like Hospital Course Hospital Course Patient was admitted for UTI altered mental status. Altered mental status is improved. Initially when he first came in he also threatened to commit suicide. He was seen by psychiatry and cleared from that standpoint. Was complaining of back pain. MRI lumbar spine was done which showed 1. Endplate edema with paravertebral soft tissue edema and enhancement suspicious for discitis/osteomyelitis at the L3-4 level. 2. Small amount of enhancement at the L2-3 level also suspicious for discitis/osteomyelitis although similar in appearance to the prior studies at this level. 3. No drainable abscess or drainable fluid collection. 4. Chronic mild to moderate central canal stenosis L3-4 due to disc bulging with facet arthropathy and ligamentum flavum hypertrophy. ID was consulted. They recommend transfer to higher level of care for placement of nephrostomy tubes, urological evaluation, ID. Will also need spine surgery evaluation. Patient is bacteremic. Urine culture growing Klebsiella pneumonia. Case discussed with hospitalist at [facility]. Patient accepted to hospitalist service. Physical Exam Narrative: AO x 3 HEENT normocephalic/atraumatic neck neck is supple cardiovascular heart rate is regular lungs are pretty much clear abdomen soft nontender nondistended unremarkable extremities are intact no edema has good pulses neurology has no focality lab studies lab studies reviewed and noted. Nephrostomy tubes draining urine bilaterally. mild crusting noted at left nephrostomy insertion site Abdomen soft nontender. TS Data Studies Completed and Pending Pending at discharge Category Date Time Status Basic Metabolic Panel AM LABS Lab 06/09/25 04:00 Ordered Blood Culture Stat Lab 06/05/25 23:50 Results Blood Culture Timed Lab 06/07/25 04:53 Results Complete Blood Count w/Auto AM LABS Lab 06/09/25 04:00 Ordered Magnesium AM LABS Lab 06/09/25 04:00 Ordered Completed Studies During Hospitalization Category Date Time Status CT abdomen pelvis wo con [id number] Stat Cat Scan 06/05/25 22:52 Completed MR head wo con* [id number] Routine MRI 06/07/25 11:55 Completed MR lumbar spine wo/w con [id number] Routine MRI 06/07/25 11:53 Completed Laboratory Last Values WBC 11.82 10^3/uL (3.29-11.43) H 06/08/25 02:24 RBC 3.29 10^6/uL (3.85-5.65) L 06/08/25 02:24 Hgb 9.00 g/dL (11.27-16.99) L 06/08/25 02:24 Hct 28.8 % (37-53) L 06/08/25 02:24 MCV 87.5 fl (82-101) 06/08/25 02:24 MCH 27.4 pg (27-33) 06/08/25 02:24 MCHC 31.3 g/dL (30-55) 06/08/25 02:24 RDW 15.2 % (12.1-15.1) H 06/08/25 02:24 Plt Count 280 10^3/cmm (157-399) 06/08/25 02:24 MPV 10.9 fL (7.4-10.4) H 06/08/25 02:24 Neut % (Auto) 69.4 % 06/08/25 02:24 Lymph % (Auto) 19.0 % 06/08/25 02:24 [place] % (Auto) 6.8 % 06/08/25 02:24 Eos % (Auto) 3.9 % 06/08/25 02:24 Baso % (Auto) 0.6 % 06/08/25 02:24 Neut # (Auto) 8.20 10^3/uL (1.8-7.7) H 06/08/25 02:24 Lymph # (Auto) 2.3 10^3/uL (0.8-4.8) 06/08/25 02:24 [place] # (Auto) 0.8 10^3/uL (0.2-0.9) 06/08/25 02:24 Eos # (Auto) 0.5 10^3/uL (0.0-0.8) 06/08/25 02:24 Baso # (Auto) 0.1 10^3/uL (0.0-0.1) 06/08/25 02:24 Nucleated RBC % (auto) 0 % 06/08/25 02:24 Nucleated RBCs # 0.0 /100WBC 06/08/25 02:24 Sodium 137 mmol/L (136-145) 06/08/25 02:24 Potassium 3.6 mmol/L (3.5-5.1) 06/08/25 02:24 Chloride 103 mmol/L (98-107) 06/08/25 02:24 Carbon Dioxide 23 mmol/L (22-29) 06/08/25 02:24 Anion Gap 14.6 (5-19) 06/08/25 02:24 BUN 18 mg/dL (8-23) 06/08/25 02:24 Creatinine 1.2 mg/dL (0.7-1.2) 06/08/25 02:24 GFR Calculation Not Reportable 06/08/25 02:24 Glucose 264 mg/dL (65-115) H 06/08/25 02:24 POC Glucose 165 mg/dL (70-110) H 06/06/25 06:27 Calculated Osmolality 295 mOsm/kg (285-295) 06/08/25 02:24 Lactic Acid 2.8 mmol/L (0.5-2.2) H 06/05/25 22:56 Lactic Acid (Sepsis) 1.8 mmol/L (0.5-2.2) 06/06/25 02:22 Calcium 8.1 mg/dL (8.5-10.5) L 06/08/25 02:24 Phosphorus 3.1 mg/dL (2.5-4.5) 06/06/25 04:12 Magnesium 1.6 mg/dL (1.7-2.3) L 06/08/25 02:24 Total Bilirubin 0.9 mg/dL (0.15-1.2) 06/06/25 04:12 AST 15 U/L (0-40) 06/06/25 04:12 ALT 13 U/L (0-41) 06/06/25 04:12 Alkaline Phosphatase 107 U/L (40-130) 06/06/25 04:12 C-Reactive Protein 99.3 mg/L (0.0-4.9) H 06/05/25 22:56 Total Protein 6.3 g/dL (6.6-8.7) L 06/06/25 04:12 Albumin 3.2 g/dL (3.5-5.2) L 06/06/25 04:12 Globulin 3.1 g/dL (1.3-4.6) 06/06/25 04:12 Urine Color Yellow (Yellow) 06/06/25 00:01 Urine Appearance Turbid (CLEAR) A 06/06/25 00:01 Urine pH 6.5 (5-7) 06/06/25 00:01 Ur Specific [place] 1.015 (1.005-1.030) 06/06/25 00:01 Urine Protein 2+ (Negative) A 06/06/25 00:01 Urine Glucose (UA) Negative (Normal) 06/06/25 00:01 Urine Ketones Trace (Negative) 06/06/25 00:01 Urine Blood 3+ (Negative) A 06/06/25 00:01 Urine Nitrate Positive (Negative) A 06/06/25 00:01 Urine Bilirubin Negative (Negative) 06/06/25 00:01 Urine Urobilinogen 1.0 mg/dL (Negative) 06/06/25 00:01 Ur Leukocyte Esterase 3+ (Negative) A 06/06/25 00:01 Urine RBC >100 /hpf (0-2) H 06/06/25 00:01 Urine WBC >100 /hpf (0-5) H 06/06/25 00:01 Ur Squamous Epith Cells 0-5 /hpf (0-5) 06/06/25 00:01 Amorphous Sediment Not Reportable 06/06/25 00:01 Urine Bacteria 4+ /hpf (NONE) H 06/06/25 00:01 Hyaline Casts 63.22 /lpf 06/06/25 00:01 Radiology Impressions Abdomen/Pelvis CT 06/05/25 22:52 IMPRESSION: Negative for acute abdominopelvic pathology. Lumbar Spine MRI 06/07/25 11:53 IMPRESSION: Some images are limited due to motion artifact 1. Endplate edema with paravertebral soft tissue edema and enhancement suspicious for discitis/osteomyelitis at the L3-4 level. 2. Small amount of enhancement at the L2-3 level also suspicious for discitis/osteomyelitis although similar in appearance to the prior studies at this level. 3. No drainable abscess or drainable fluid collection. 4. Chronic mild to moderate central canal stenosis L3-4 due to disc bulging with facet arthropathy and ligamentum flavum hypertrophy. Head MRI 06/07/25 11:55 IMPRESSION: 1. No evidence of restricted diffusion to suggest acute ischemia. 2. Minimal small vessel changes. Mild parenchymal volume loss. 3. Tiny chronic lacunar infarct RIGHT cerebellum. 4. No other acute findings Recent Clincial Data Last Vital Signs Temp 97.9 F 06/08/25 11:41 Pulse 67 06/08/25 11:41 Resp 17 06/08/25 11:41 BP 132/71 06/08/25 11:41 Pulse Ox 96 06/08/25 11:41 O2 Del Method Room Air 06/08/25 11:41 O2 Flow Rate 2 06/08/25 00:00 Vital Signs Temp Pulse Resp BP Pulse Ox O2 Del Method 06/08/25 11:41 97.9 F 67 17 132/71 96 Room Air 06/08/25 09:13 17 06/08/25 09:03 64 06/08/25 07:29 97.4 F L 64 16 124/75 94 Room Air 06/08/25 05:17 18 06/08/25 04:00 97.7 F 76 16 128/78 97 Room Air Intake & Output/Weight 06/06/25 06/07/25 06/08/25 06/09/25 06:59 06:59 06:59 06:59 Intake Total 1050 / 1050 3230.000 / 3230.000 1970 / 1970 110.833 / 110.833 Output Total 1700 / 1700 1900 / 1900 2350 / 2350 875 / 875 Balance -650 / -650 1330.000 / 1330.000 -380 / -380 -764.167 / -764.167 Weight 82.1 kg 85.275 kg 84.425 kg Vitals Last Vital Signs Temp 97.9 F 06/08/25 11:41 Pulse 67 06/08/25 11:41 Resp 17 06/08/25 11:41 BP 132/71 06/08/25 11:41 Pulse Ox 96 06/08/25 11:41 O2 Del Method Room Air 06/08/25 11:41 O2 Flow Rate 2 06/08/25 00:00 TS Medications Medications Acetaminophen (Acetaminophen 325 Mg Tablet) 650 mg PO Q6H PRN PRN Reason: Mild/Mod Pain Or Temp >/= 101 Last Admin: 06/08/25 12:47 Dose: 650 mg Acetaminophen (Acetaminophen 325 Mg Tablet) 650 mg PO Q6H PRN PRN Reason: PAIN Amiodarone HCl (Amiodarone 200 Mg Tablet) 200 mg PO DAILY [facility] Last Admin: 06/08/25 09:03 Dose: 200 mg Atorvastatin Calcium (Atorvastatin 40 Mg Tablet) 80 mg PO BEDTIME [facility] Last Admin: 06/07/25 20:17 Dose: 80 mg Digoxin (Digoxin 125 Mcg Tablet) 125 mcg PO DAILY [facility] Last Admin: 06/08/25 09:03 Dose: 125 mcg Docusate Sodium (Docusate Sodium 100 Mg Capsule) 100 mg PO BID@0500,1700 [facility] Last Admin: 06/08/25 05:17 Dose: 100 mg Fentanyl (Fentanyl 25 Mcg Patch) 1 patch TRANSDERMA Q72H [facility] Last Admin: 06/07/25 10:56 Dose: 1 patch Fondaparinux (Fondaparinux 2.5 Mg/0.5 Ml Syringe) 2.5 mg SUBCUT DAILY [facility] Last Admin: 06/08/25 09:06 Dose: 2.5 mg Furosemide (Furosemide 20 Mg Tablet) 20 mg PO DAILY [facility] Last Admin: 06/08/25 09:03 Dose: 20 mg Piperacillin Sod/Tazobactam (Sod 3.375 gm/ Sodium Chloride) 50 mls @ 12.5 mls/hr IV Q8H [facility]; Protocol Last Infusion: 06/08/25 11:32 Dose: 12.5 mls/hr Morphine Sulfate (Morphine 4 Mg/Ml Sdv 1 Ml) 4 mg IVP Q4H PRN PRN Reason: SEVERE PAIN Last Admin: 06/08/25 09:13 Dose: 4 mg Ondansetron HCl (Ondansetron 2 Mg/Ml Sdv 2 Ml) 4 mg IVP Q6H PRN PRN Reason: NAUSEA AND VOMITING Last Admin: 06/07/25 08:34 Dose: 4 mg Pantoprazole Sodium (Pantoprazole Dr 40 Mg Tablet) 40 mg PO DAILY [facility] Last Admin: 06/08/25 09:03 Dose: 40 mg Pantoprazole Sodium (Pantoprazole Dr 40 Mg Tablet) 40 mg PO DAILY [facility] Last Admin: 06/08/25 09:16 Dose: Not Given Polyethylene Glycol (Polyethylene Glycol 3350 Pkt 17 Gm) 17 gm PO DAILY PRN PRN Reason: Constipation Last Admin: 06/08/25 12:47 Dose: 17 gm Discontinued Medications Docusate Sodium (Docusate Sodium 100 Mg Capsule) 100 mg PO BID [facility] Last Admin: 06/07/25 08:24 Dose: 100 mg Gadobenate Dimeglumine (Gadobenate Dimeglumine 20 Ml Vial) 18 ml IV ONCE ONE Stop: 06/07/25 14:16 Last Admin: 06/07/25 14:16 Dose: 18 ml Heparin Sodium (Porcine) (Heparin 5,000 Unit/Ml Inj 1 Ml) 5,000 unit SUBCUT Q12H [facility] Last Admin: 06/06/25 13:36 Dose: Not Given Sodium Chloride (Sodium Chloride 0.9%) 1,000 mls @ 999 mls/hr IV .Q1H1M ONE Stop: 06/06/25 00:22 Last Infusion: 06/06/25 03:42 Dose: Infused Piperacillin Sod/Tazobactam (Sod 4.5 gm/ Sodium Chloride) 50 mls @ 100 mls/hr IV 3D DESIGNER ONE; Protocol Stop: 06/05/25 23:56 Last Infusion: 06/06/25 03:20 Dose: Infused Sodium Chloride (Sodium Chloride 0.9%) 1,000 mls @ 100 mls/hr IV .Q10H [facility] Last Admin: 06/06/25 03:53 Dose: Not Given Sodium Chloride (Sodium Chloride 0.9%) 1,000 mls @ 100 mls/hr IV .Q10H [facility] Last Infusion: 06/07/25 12:26 Dose: Infused Morphine Sulfate (Morphine 4 Mg/Ml Sdv 1 Ml) 4 mg IVP ONCE ONE Stop: 06/06/25 02:20 Last Admin: 06/06/25 02:26 Dose: 4 mg Ondansetron HCl (Ondansetron 2 Mg/Ml Sdv 2 Ml) 4 mg IVP Q4H PRN PRN Reason: vomiting, or N/V if npo Allergies pollen extracts Allergy (Verified 02/24/25 09:23) Unknown Home Medications fluticasone 100 mcg-salmeterol 50 mcg/dose blistr powdr for inhalation (Wixela Inhub) 1 inh inhalation BID 10/03/21 [History Confirmed 06/06/25] acetaminophen 325 mg tablet (Tylenol) 650 mg PO Q6H PRN Pain 07/02/23 [History Confirmed 06/06/25] flash glucose scanning reader (HexaditeStyle Jimi 2 [place]) #1 ea 08/25/23 [Rx Confirmed 06/06/25] FreeStyle Jimi 2 Sensor (flash glucose sensor) #6 ea 12/11/23 [Rx Confirmed 06/06/25] blood-glucose sensor (Dexcom G7 Sensor device) #3 ea 02/08/24 [Rx Confirmed 06/06/25] blood-glucose,librarian special collections,cont (Dexcom G7 Predatory Animal Hunter) #1 ea 02/08/24 [Rx Confirmed 06/06/25] albuterol sulfate 90 mcg/actuation aerosol inhaler 2 puff inhalation Q4H PRN Dyspnea 04/27/24 [History Confirmed 06/06/25] furosemide 20 mg tablet 20 mg PO DAILY 04/27/24 [History Confirmed 06/06/25] atorvastatin 80 mg tablet 80 mg PO DAILY 11/26/24 [History Confirmed 06/06/25] digoxin 125 mcg (0.125 mg) tablet 125 mcg PO DAILY 11/26/24 [History Confirmed 06/06/25] fluticasone propionate 50 mcg/actuation nasal spray,suspension 1 spray intranasal DAILY 11/26/24 [History Confirmed 06/06/25] hydrocodone 7.5 mg-acetaminophen 325 mg tablet 1 tab PO BID PRN Pain 11/26/24 [History Confirmed 06/06/25] insulin lispro 100 unit/mL subcutaneous pen See Rx Instructions .Route .COMPLEX 11/26/24 [History Confirmed 06/06/25] metformin 500 mg tablet 500 mg PO DAILY 11/26/24 [History Confirmed 06/06/25] omeprazole 20 mg capsule,delayed release 20 mg PO DAILY 11/26/24 [History Confirmed 06/06/25] ondansetron HCl 4 mg tablet 4 mg PO TID PRN Nausea And Vomiting 11/26/24 [History Confirmed 06/06/25] amiodarone 200 mg tablet 200 mg PO DAILY 02/24/25 [History Confirmed 06/06/25] fentanyl 100 mcg/hr transdermal patch 100 mcg transdermal 3XD 06/06/25 [History Confirmed 06/06/25] fosfomycin tromethamine 3 gram oral packet See Rx Instructions .Route .COMPLEX 06/06/25 [History Confirmed 06/06/25] insulin glargine 100 unit/mL (3 mL) subcutaneous pen (Lantus Solostar U-100 Insulin) 25 unit SUBCUT DAILY 06/06/25 [History Confirmed 06/06/25] insulin lispro 100 unit/mL subcutaneous pen 10 unit SUBCUT TIDWM 06/06/25 [History Confirmed 06/06/25] nystatin 100,000 unit/gram topical powder 1 applic topical TID 06/06/25 [History Confirmed 06/06/25] polyethylene glycol 3350 17 gram/dose oral powder (Miralax) 17 g PO DAILY PRN Constipation 06/06/25 [History Confirmed 06/06/25] simethicone 125 mg capsule See Rx Instructions .Route .COMPLEX PRN Gas 06/06/25 [History Confirmed 06/06/25] Discharge Plan Discharge Patient Disposition: Xfer Short-Term Hosp Condition: Stable Prescriptions: No Action (DME) Dexcom G7 Sensor Device See Rx Instructions .Route Qty: 3 1RF Rx Instructions: As directed (DME) Dexcom G7 Predatory Animal Hunter Misc See Rx Instructions .Route Qty: 1 0RF Rx Instructions: As directed amiodarone 200 mg tablet 200 mg PO DAILY (DME) FreeStyle Jimi 2 [place] Misc See Rx Instructions .Route Qty: 1 0RF Rx Instructions: As directed (DME) FreeStyle Jimi 2 Sensor Kit See Rx Instructions .ROUTE .MEDSUPPLY Qty: 6 1RF Rx Instructions: change every 14 days fluticasone propion-salmeterol [Wixela Inhub] 100-50 mcg/dose Blister With Device 1 inh INHALATION BID acetaminophen [Tylenol] 325 mg Tablet 650 mg PO Q6H PRN (Reason: Pain) furosemide 20 mg tablet 20 mg PO DAILY albuterol sulfate 90 mcg/actuation HFA aerosol inhaler 2 puff INHALATION Q4H PRN (Reason: Dyspnea) insulin glargine [Lantus Solostar U-100 Insulin] 100 unit/mL (3 mL) insulin pen 25 unit SUBCUT DAILY fentanyl 100 mcg/hr patch 72 hour 100 mcg transdermal 3XD fosfomycin tromethamine 3 gram packet See Rx Instructions .ROUTE .COMPLEX Rx Instructions: 3 g orally on Thursday nystatin 100,000 unit/gram powder 1 applic TOPICAL TID simethicone 125 mg Capsule See Rx Instructions .ROUTE .COMPLEX PRN (Reason: Gas) Rx Instructions: Give 1-2 capsules by mouth four times daily after meals and at bedtime as needed for gas. No more than 4 in 24 hours. insulin lispro 100 unit/mL Insulin Pen 10 unit SUBCUT TIDWM polyethylene glycol 3350 [Miralax] 17 gram/dose Powder 17 g PO DAILY PRN (Reason: Constipation) atorvastatin 80 mg tablet 80 mg PO DAILY hydrocodone-acetaminophen 7.5-325 mg tablet 1 tab PO BID PRN (Reason: Pain) digoxin 125 mcg (0.125 mg) tablet 125 mcg PO DAILY fluticasone propionate 50 mcg/actuation spray,suspension 1 spray INTRANASAL DAILY insulin lispro 100 unit/mL insulin pen See Rx Instructions .ROUTE .COMPLEX Rx Instructions: Injecr per sliding scale: bs<60, call MD. Bs 201-250=2 units, 251-300=4 units, 301-350=6 units, 351-400=8 units, bs greater than 400=8 units. Bs less than 60 or greater than 400x 3 consecutive times or symptomatic, call MD. metformin 500 mg tablet 500 mg PO DAILY ondansetron HCl 4 mg Tablet 4 mg PO TID PRN (Reason: Nausea And Vomiting) omeprazole 20 mg capsule,delayed release(DR/EC) 20 mg PO DAILY Referrals: Trisha Urena MD [Primary Care Provider, [facility]] Transfer Attestations Time Spent in Transfer Care: greater than 30 min Status at Transfer: Cognitive status at transfer: cognitively intact ; Behavioral status at transfer: cooperative ; Quality Metrics Clinical Quality Measures [ No reported AMI, CVA or VTE this stay] Coding Level of Care Code Acute Code for g Fwd Diagnoses Acute lactic acidosis E87.21 Pyuria R82.81 Acute encephalopathy G93.40 Vertebral osteomyelitis M46.20 Complicated UTI (urinary tract infection) N39.0 Metabolic acidosis E87.20 Hydroureteronephrosis N13.30 Bacteremia R78.81 Discitis M46.40
--- NOTE | 2025-06-08 15:46 | PM.CONSULT ---
Providers/Reason For Consult Consulting Physician/Specialty*: Suzi Coats MD/Infectious Disease Reason for Consult*: pyelonephritis, discitis Requesting Physician: Lillian Pascal MD Attending Physician: Lillian Pascal MD Primary Care Provider: Trisha Urena MD History of Present Illness History of Present Illness Raphael Deal is a 75 year old male history of type 2 diabetes, BPH, history of prostate cancer with radiation treatment that led to bladder scarring. Patient reports that he has bilateral nephrostomies at least for the past 3 to 4 years as a result of having anatomical issues with his urinary bladder. He has been assessed for neobladder surgery in the past however has not had surgery as he has been deemed to be a high risk candidate. Additionally patient has a history of discitis at the L3-L4 level and endplate osteomyelitis 1 year ago in April 2024. He was treated with 6 weeks of IV cefepime and ? Vancomycin at that time.He is followed by Dr. Cartwright at [place] for urology and undergoes nephrostomy exchanges anywhere between 1 to 3 months. He was previously treated by Dr. Man from infectious disease at [place] for his discitis. Patient is currently admitted here on June 06, 2025 with chief complaints of altered mental status and metabolic encephalopathy. He was noted to have an elevated WBC count of 19,000. His blood cultures have been reported positive for Staph epidermidis. Per discussion with [employer] there is also an additional gram-negative melissa that has been identified on his blood culture today. It is awaiting further identification at this time. Urine culture is with Klebsiella pneumoniae. On examination the site of his right nephrostomy has puslike discharge and crusting along the insertion site. Area at the insertion site is tender I am concerned he may have a small abscess in this area. Lumbar spine MRI has shown endplate edema with paravertebral soft tissue edema and enhancement suspicious for discitis/osteomyelitis at the L3-L4 level. Small amount of enhancement is also encountered at the L2-L3 level suspicious for discitis osteomyelitis, though the latter is appearing similar to prior studies. Review of Systems General: Reports: 10 or more systems reviewed and unremarkable except in HPI and below Const: Denies: fever(s), chills or body aches Eyes: Denies: change in vision, blurry vision or photophobia ENMT: Reports: hoarseness; Denies: throat pain, enlarged tonsils, odynophagia or nasal congestion Card: Denies: chest pain, palpitations, irregular heart rhythm, edema, swelling of feet/ankles, lightheadedness, pre-syncope, dyspnea on exertion or orthopnea Resp: Denies: dyspnea, productive cough, non-productive cough, wheezing, stridor, pain on inspiration, change in phlegm color, hemoptysis or chest congestion GI: Denies: abdominal pain, nausea, vomiting, hematemesis, coffee ground emesis, dysphagia, heartburn, diarrhea, constipation, GI cramping, change in stool character, hematochezia or melena : Denies: flank pain, dysuria, urinary frequency, urinary urgency, urinary hesitancy or hematuria Musc: Denies: neck pain, back pain, extremity pain, joint swelling, joint warmth or deformity Neuro: Denies: headache(s), numbness in extremities, weakness in extremities, sensory changes, difficulty walking, frequent falls, dizziness, vertigo, behavioral changes, Slurred speech present or seizure-like activity Psych: Denies: anxiety, depression, suicidal ideation or homicidal ideation Endo: Denies: polyuria, polydipsia, tired all the time, cold intolerance or hot flashes Felix/Lymph: Denies: easy bruising or easy bleeding Medications/Allergies Home Medications ?Medication ?Instructions ?Recorded ?Confirmed ?Last Taken ?Type fluticasone 100 mcg-salmeterol 50 1 inh inhalation BID 10/03/21 06/06/25 06/05/25 20:04 History mcg/dose blistr powdr for inhalation (Wixela Inhub) acetaminophen 325 mg tablet 650 mg PO Q6H PRN Pain 07/02/23 06/06/25 06/05/25 06:34 History (Tylenol) flash glucose scanning reader #1 ea 08/25/23 06/06/25 Unknown Rx (FreeStyle Jimi 2 [place]) FreeStyle Jimi 2 Sensor (flash #6 ea 12/11/23 06/06/25 Unknown Rx glucose sensor) blood-glucose sensor (Dexcom G7 #3 ea 02/08/24 06/06/25 Unknown Rx Sensor device) blood-glucose,marine photographer,cont #1 ea 02/08/24 06/06/25 Unknown Rx (Dexcom G7 [employer]) albuterol sulfate 90 mcg/actuation 2 puff inhalation Q4H PRN Dyspnea 04/27/24 06/06/25 06/22/23 History aerosol inhaler furosemide 20 mg tablet 20 mg PO DAILY 04/27/24 06/06/25 06/05/25 06:37 History atorvastatin 80 mg tablet 80 mg PO DAILY 11/26/24 06/06/25 06/05/25 06:37 History digoxin 125 mcg (0.125 mg) tablet 125 mcg PO DAILY 11/26/24 06/06/25 06/05/25 06:37 History fluticasone propionate 50 1 spray intranasal DAILY 11/26/24 06/06/25 06/05/25 06:37 History mcg/actuation nasal spray,suspension hydrocodone 7.5 mg-acetaminophen 1 tab PO BID PRN Pain 11/26/24 06/06/25 06/04/25 19:18 History 325 mg tablet insulin lispro 100 unit/mL See Rx Instructions .Route .COMPLEX 11/26/24 06/06/25 1 Day Ago History subcutaneous pen ~06/05/25 metformin 500 mg tablet 500 mg PO DAILY 11/26/24 06/06/25 06/05/25 06:37 History omeprazole 20 mg capsule,delayed 20 mg PO DAILY 11/26/24 06/06/25 06/05/25 06:37 History release ondansetron HCl 4 mg tablet 4 mg PO TID PRN Nausea And Vomiting 11/26/24 06/06/25 05/26/25 21:25 History amiodarone 200 mg tablet 200 mg PO DAILY 02/24/25 06/06/25 06/05/25 06:37 History fentanyl 100 mcg/hr transdermal 100 mcg transdermal 3XD 06/06/25 06/06/25 06/04/25 13:09 History patch fosfomycin tromethamine 3 gram See Rx Instructions .Route .COMPLEX 06/06/25 06/06/25 06/05/25 06:37 History oral packet insulin glargine 100 unit/mL (3 25 unit SUBCUT DAILY 06/06/25 06/06/25 06/05/25 06:37 History mL) subcutaneous pen (Lantus Solostar U-100 Insulin) insulin lispro 100 unit/mL 10 unit SUBCUT TIDWM 06/06/25 06/06/2506/05/25 History subcutaneous pen nystatin 100,000 unit/gram topical 1 applic topical TID 06/06/25 06/06/25 06/05/25 20:04 History powder polyethylene glycol 3350 17 17 g PO DAILY PRN Constipation 06/06/25 06/06/25 04/22/25 History gram/dose oral powder (Miralax) simethicone 125 mg capsule See Rx Instructions .Route 06/06/25 06/06/25 Unknown History .COMPLEX PRN Gas Allergies Allergy/AdvReac Type Severity Reaction Status Date / Time pollen extracts Allergy Unknown Verified 02/24/25 09:23 Current Medications Generic Name Dose Route Start Last Admin Trade Name Freq PRN Reason Stop Dose Admin Acetaminophen 650 mg 06/06/25 03:16 06/08/25 12:47 Acetaminophen 325 Mg Tablet PO 650 mg Q6H PRN Administration Mild/Mod Pain Or Temp >/= 101 Amiodarone HCl 200 mg 06/07/25 12:00 06/08/25 09:03 Amiodarone 200 Mg Tablet PO 200 mg DAILY ROSALBA Administration Atorvastatin Calcium 80 mg 06/07/25 21:00 06/07/25 20:17 Atorvastatin 40 Mg Tablet PO 80 mg BEDTIME ROSALBA Administration Digoxin 125 mcg 06/07/25 12:00 06/08/25 09:03 Digoxin 125 Mcg Tablet PO 125 mcg DAILY ROSALBA Administration Docusate Sodium 100 mg 06/07/25 17:00 06/08/25 05:17 Docusate Sodium 100 Mg Capsule PO 100 mg BID@0500,1700 ROSALBA Administration Fentanyl 1 patch 06/07/25 10:45 06/07/25 10:56 Fentanyl 25 Mcg Patch TRANSDERMA 1 patch Q72H ROSALBA Administration Fondaparinux 2.5 mg 06/06/25 12:15 06/08/25 09:06 Fondaparinux 2.5 Mg/0.5 Ml Syringe SUBCUT 2.5 mg DAILY ROSALBA Administration Furosemide 20 mg 06/07/25 12:00 06/08/25 09:03 Furosemide 20 Mg Tablet PO 20 mg DAILY ROSALBA Administration Piperacillin Sod/Tazobactam 50 mls @ 12.5 mls/hr 06/06/25 11:00 06/08/25 15:37 Sod 3.375 gm/ Sodium Chloride IV Infused Q8H ROSALBA Infusion Protocol Morphine Sulfate 4 mg 06/06/25 03:16 06/08/25 09:13 Morphine 4 Mg/Ml Sdv 1 Ml IVP 4 mg Q4H PRN Administration SEVERE PAIN Ondansetron HCl 4 mg 06/06/25 03:16 06/07/25 08:34 Ondansetron 2 Mg/Ml Sdv 2 Ml IVP 4 mg Q6H PRN Administration NAUSEA AND VOMITING Pantoprazole Sodium 40 mg 06/06/25 09:00 06/08/25 09:[address] 40 Mg Tablet PO 40 mg DAILY ROSALBA Administration Pantoprazole Sodium 40 mg 06/08/25 09:00 06/08/25 09:[address] 40 Mg Tablet PO Not Given DAILY ROSALBA Polyethylene Glycol 17 gm 06/07/25 12:32 06/08/25 12:47 Polyethylene Glycol 3350 Pkt 17 Gm PO 17 gm DAILY PRN Administration Constipation PFSH Acute PFSH: Medical History Yeast UTI Hematuria due to acute cystitis Mild cognitive impairment with memory loss Bacteriuria Alzheimer disease 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 mellitus History of Doppler ultrasound 08/2021 venous no DVT BLE 08/2021 arterial patent vessels, left posterior tibial may be less than 60% stenosis, left dorsalis pedis not visualized Gait instability SARS-CoV-2 positive positive test 11/17/2021 symptoms weakness, hypoglycemia, altered mental status and low grade fever Anemia Intermittent self-catheterization of bladder due to urinary retention History of sleep study 02/22 limited sleep, no apnea noted but did have nocturnal hypoxemia, recommended to use nocturnal oxygen History of electromyography 01/23 Interpretation: The study provides electrodiagnostic evidence for an axonal sensorimotor polyneuropathy based on small or absent CMAPs and SNAPs with denervation seen distally on EMG. The study is limited for evaluation of lumbar radiculopathy related to the patient's anticoagulated state. History of echocardiogram 05/2021 EF 65% History of cardiovascular stress test 05/2021 normal EKG response, perfusion study without findings of ischemia Diabetes mellitus, type II Chronic anticoagulation Taken off Xarelto secondary to hematuria BPH loc w urin obs/LUTS Obstructive pyelonephritis 09/2021 required ureteral stent placement Left ureteral calculus Diabetic foot ulcer 08/2021 - treated with I&D, antibiotics and wound care clinic management Lumbar stenosis with neurogenic claudication 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 mellitus Cervicalgia of vajov[place]qh-llfcoyd-[place] region Lumbar stenosis L2/3, L3/4, L4/L5, with radiculopathy right lower extremity H/O prostate cancer Obstructive sleep apnea Refuses CPAP HTN (hypertension) previously on treatment for high blood pressure Atrial fibrillation Surgical History Status post excisional debridement 08/2021 left foot History of laminectomy 03/25 bilateral with partial facetectomies at L2-3, L3-4, L4-[address] Smith Other postprocedural status history of radiofrequency ablation for back pain x 2 Status post laser lithotripsy of ureteral calculus (11/06/21) S/P ureteral stent placement (09/2021) subsequent removal H/O esophagogastroduodenoscopy (10/30/21) 10/2021 pedunculated polyps removed from first portion of duodenum, otherwise normal History of colonoscopy (10/30/21) 11/2021 diverticulosis of sigmoid colon and internal hemorrhoids, sessile polyps removed History of back surgery S/P tonsillectomy S/P appendectomy History of pilonidal cyst Family History Grandmother Heart disease Hypertension Grandfather Hypertension MATERNAL Diabetes Mother No problems noted. Father No problems noted. 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/Wt Last Vital Signs Temp 98.2 F 06/08/25 15:36 Pulse 57 L 06/08/25 15:36 Resp 16 06/08/25 15:36 BP 128/75 06/08/25 15:36 Pulse Ox 96 06/08/25 15:36 O2 Del Method Room Air 06/08/25 15:36 O2 Flow Rate 2 06/08/25 00:00 06/08/25 06/08/25 06/08/25 06:59 14:59 22:59 Intake Total 110.833 / 110.833 50 / 160.833 Output Total 1000 / 2350 875 / 875 700 / 1575 Balance -1000 / -380 -764.167 / -764.167 -650 / -1414.167 Weight last 48 hrs Weight 84.425 kg Weight 85.275 kg Physical Exam Narrative: General: No acute distress, AO x3 HEENT: PERRLA, pupils bilaterally equal and reactive, pallors not present Chest: Normal vesicular breath sounds, no added sounds, equal good air entry bilaterally CVS: S1-S2 regular, no murmurs, no tachycardia, no gallops, no rubs Abdomen: Soft, nontender, no organomegaly, bowel sounds present Neuro: No focal deficits, no facial deformity, AO x3, power 5/5 in all limbs Data 06/08/25 02:24 06/08/25 02:24 Other Labs: Ordering Provider/Ordering MD: Lillian Pascal MD Date of Service: 06/07/25 Procedure(s): MR head wo con* [id number] Accession Number(s): [id number] Report Number: [id number] WS: [id number] MRI HEAD WITHOUT CONTRAST TECHNIQUE: Sagittal T1, T2 axial, T2 axial FLAIR, axial and coronal T1 images, axial susceptibility weighted imaging, axial diffusion weighted images, and coronal T2 images were obtained. CLINICAL INFORMATION: encephalopathy COMPARISON: None. FINDINGS: No evidence of restricted diffusion to suggest acute ischemia. Minimal small vessel changes. Mild parenchymal volume loss. Tiny chronic lacunar infarct RIGHT cerebellum. Normal vascular flow voids at the skull base. No extra-axial fluid collections. Paranasal sinuses and mastoid air cells are well aerated. No hemosiderin. Moderate symmetric atrophy temporal lobes and hippocampal formations. No other acute findings. MR/MR head wo con* [id number] IMPRESSION: 1. No evidence of restricted diffusion to suggest acute ischemia. 2. Minimal small vessel changes. Mild parenchymal volume loss. 3. Tiny chronic lacunar infarct RIGHT cerebellum. 4. No other acute findings Ordering Provider/Ordering MD: Lillian Pascal MD Date of Service: 06/07/25 Procedure(s): MR lumbar spine wo/w con [id number] Accession Number(s): [id number] Report Number: [id number] WS: [id number] MRI LUMBAR SPINE WITH CONTRAST TECHNIQUE: Sagittal T1, T2 and STIR imaging. Axial T1 and T2 imaging. Post gadolinium imaging was obtained. CLINICAL INFORMATION: r/o osteomyelitis , bacteremia COMPARISON: Multiple prior MRIs dating back to 2018. FINDINGS: Some images limited due to motion artifact Mild lumbar curve. No acute compression. Endplate edema with enhancement at L3-4 with suspected phlegmon in the disc space. Findings suspicious for discitis/osteomyelitis. Associated paravertebral soft tissue edema and enhancement extending into the psoas LEFT greater than RIGHT. No drainable fluid collections. Chronic disc desiccation at L2-3 with a small amount of endplate enhancement suspicious for discitis/osteomyelitis at this level. This has a similar appearance compared to the prior examinations and may be partially treated. L1-L2: Normal. L2-L3: Chronic disc space narrowing. Moderate facet arthropathy. Moderate RIGHT and mild LEFT foraminal narrowing. L3-L4: Mild to moderate central canal stenosis. Shallow central protrusion impinges the subarticular recess. Moderate facet arthropathy. Moderate bilateral foraminal narrowing. L4-L5: Grade 1 anterolisthesis. Mild central canal stenosis. Impingement on the traversing LEFT L5 nerve root. Moderate facet arthropathy. Mild LEFT greater than RIGHT foraminal narrowing. L5-S1: Mild annular bulging. Small annular fissure. Mild facet arthropathy. Narrowing of the RIGHT subarticular recess. Foramen are patent. Visualized pelvic bony structures: Normal. Paravertebral soft tissues: Normal. Small bilateral renal cysts. MR/MR lumbar spine wo/w con [id number] IMPRESSION: Some images are limited due to motion artifact 1. Endplate edema with paravertebral soft tissue edema and enhancement suspicious for discitis/osteomyelitis at the L3-4 level. 2. Small amount of enhancement at the L2-3 level also suspicious for discitis/osteomyelitis although similar in appearance to the prior studies at this level. 3. No drainable abscess or drainable fluid collection. 4. Chronic mild to moderate central canal stenosis L3-4 due to disc bulging with facet arthropathy and ligamentum flavum hypertrophy. Ordering Provider/Ordering MD: Daphne Meyer Date of Service: 06/05/25 Procedure(s): CT abdomen pelvis wo con [id number] Accession Number(s): [id number] Report Number: [id number] PROCEDURE INFORMATION: Exam: CT Abdomen And Pelvis Without Contrast Exam date and time: 06/05/2025 11:00 PM Age: 75 years old Clinical indication: Abdominal pain; Localized; Left lower quadrant (llq); Prior surgery; Surgery date: 6+ months; Surgery type: Appy. Bilateral nephrostomy; EMS arrival from residential for llq pain. TECHNIQUE: Imaging protocol: Computed tomography of the abdomen and pelvis without contrast. Radiation optimization: All CT scans at this facility use at least one of these dose optimization techniques: automated exposure control; mA and/or kV adjustment per patient size (includes targeted exams where dose is matched to clinical indication); or iterative reconstruction. COMPARISON: CT kidney stone [id number] 04/10/2025 3:35 PM RADIATION DOSE METRICS: Total DLP (mGy-cm): 1319.63 FINDINGS: Tubes, catheters and devices: Bilateral antegrade percutaneous nephrostomy catheter positioning is unremarkable. Liver: Normal. No mass. Gallbladder and biliary ducts: Cholelithiasis. Negative for gallbladder wall thickening. Negative for biliary system dilation. Pancreas: Normal. No ductal dilation. Spleen: Normal. No splenomegaly. Adrenal glands: Normal. No mass. Kidneys and ureters: Bilateral renal cortical thinning redemonstrated. Mild severity bilateral hydronephrosis reduced from comparison. Minimal gas present bilaterally in the proximal collecting systems. 3 mm diameter nonobstructing right inferior kidney stone. Stomach and bowel: Scattered diverticulosis coli. Moderate colonic fecal volume. Negative for bowel wall inflammatory changes. Negative for pneumatosis intestinalis. Negative for bowel obstruction. Negative for bowel perforation. Appendix: Normal appendix. Intraperitoneal space: Unremarkable. No free air. No significant fluid collection. Vasculature: Unremarkable. No abdominal aortic aneurysm. Lymph nodes: Unremarkable. No enlarged lymph nodes. Urinary bladder: Unremarkable as visualized. Reproductive: Unremarkable as visualized. Bones/joints: Extensive pre-existing degenerative changes throughout the lumbar spine. Erosive vertebral endplate changes across L3-L4 with widening of the disc space without interval change. Negative for acute fractures. Soft tissues: Unremarkable. CT/CT abdomen pelvis wo con [id number] IMPRESSION: Negative for acute abdominopelvic pathology. Micro: Microbiology 06/05/25 23:50 Blood Culture - Preliminary Blood Staphylococcus epidermidis Staphylococcus species Gram Negative Rods 06/06/25 00:01 Urine Culture - Final Urine,Clean Catch Klebsiella pneumoniae Urine Culture Final 06/08/25-0958 Organism 1 Klebsiella pneumoniae [place] Count >100,000 CFU/ml DAY 2 Kleb pneum M.I.C. RX --------- ------ * Amikacin <=16 S * Amoxicillin/Clavulanate <=8/4 S * Ampicillin/Sulbactam <=8/4 S * Aztreonam <=4 S * Cefepime <=8 S * Ceftriaxone <=1 S * Cefuroxime <=4 S * Ciprofloxacin <=1 S * Gentamicin <=2 S * Imipenem <=1 S * Levofloxacin <=2 S * Nitrofurantoin 64 I * Tetracycline <=4 S * Trimethoprim/Sulfamethoxazole <=2/38 S * Piperacillin/Tazobactam <=16 S Urine Culture Preliminary (changed) 06/07/25-1124 Organism 1 Gram Negative Rods [place] Count >100,000 CFU/ml 06/07/25 04:53 Blood Culture - Preliminary Blood NEGATIVE TO DATE 06/07/25 04:48 Blood Culture - Preliminary Blood NEGATIVE TO DATE A&P Assessment and plan 1. Vertebral osteomyelitis: 2. Gram-negative bacteremia: 3. Coag negative Staphylococcus bacteremia: Plan: 75 year old with PMH as above Blood cx positive for staphylococcus sp which has been identified as staph epidermidis Per discussion with [employer], additional GNR identified on blood cx today pending further identification Cx from nephrostomy tube is with Klebsiella Pneumoniae With crusting and tenderness around the nephrostomy insertion site, recommend that nephrostomy be exchanged, assess for abscess around insertion site With noted crusting as above and Discitis as noted on Spinal imaging, would consider CoNs to be true pathogen in this scenario and not a contaminant Recommend to continue iv abx Zosyn. Add iv vancomycin. Consider transfer for urology/nephrostomy exchange. PDMP PDMP Reviewed: Not Reviewed Consult Attestations Medical Necessity Statement: per admitting Coding Level of Care Code Acute Code for Chg Fwd High MDM includes number and complexity of problems actively addressed during encounter, amount and/or complexity of data reviewed/ordered and described risk of complication, morbidity or mortality of management as documented Diagnoses Vertebral osteomyelitis M46.20 Gram-negative bacteremia R78.81 Coag negative Staphylococcus bacteremia R78.81; B95.7
--- NOTE | 2025-06-08 17:54 | PC.NURSE ---
Report was called to Ana Spencer RN at [facility].
== END 2025-06-08 17:54 | disposition short-term general hospital (02) | DRG 689 ==
LOC: ER 06-06 01:42 → MEDSURG 06-06 02:00
PROVIDERS: Admitting Provider Internal Medicine; Emergency Provider Physician Assistant; PCP Family Medicine; Visit Provider Internal Medicine
DX: N30.00 Acute cystitis without hematuria (principal); G93.41 Metabolic encephalopathy; E87.21 Acute metabolic acidosis; M46.26 Osteomyelitis of vertebra, lumbar region; N13.30 Unspecified hydronephrosis; R78.81 Bacteremia; R45.851 Suicidal ideations; B96.1 Klebsiella pneumoniae [K. pneumoniae] as the cause of diseases classified elsewhere; M46.46 Discitis, unspecified, lumbar region; G47.33 Obstructive sleep apnea (adult) (pediatric); G30.9 Alzheimer's disease, unspecified; F02.80 Dementia in other diseases classified elsewhere, unspecified severity, without behavioral disturbance, psychotic disturbance, mood disturbance, and anxiety; E11.9 Type 2 diabetes mellitus without complications; I48.91 Unspecified atrial fibrillation; F41.9 Anxiety disorder, unspecified; Z85.46 Personal history of malignant neoplasm of prostate; Z92.3 Personal history of irradiation; Z87.440 Personal history of urinary (tract) infections; Z79.4 Long term (current) use of insulin; Z79.84 Long term (current) use of oral hypoglycemic drugs; Z93.6 Other artificial openings of urinary tract status
CPT/HCPCS: 36415; 36416; 70551; 72158; 74176; 80048; 80053; 81001; 82962; 83605; 83735; 84100; 85025; 86140; 87040; 87077; 87086; 87150; 87186; 87205; 96365; 96372; 99285; J1652; J2270; J2405; J2543; J7030; J9999

== ENCOUNTER 2025-06-20 00:40 | Emergency (ER) | payer OTHER, SELFPAY ==
--- OUTSIDE RECORDS SUMMARY | 2025-03-01 08:30 | XMS_ITS ---
Author Organization [facility] Address [address] [place] [address] Care Team Providers Care Ground Water Technician Name Role Phone Vinnie Garcia DO Primary Care Provider John Andrews JR [phone] REASON FOR VISIT [id number] WEEK F/U - UTI Medications Medication [...] MG Rectal Suppository [Dulcolax] RECTAL *Reorder from [employer] for eRx and Interaction Alerts* 07/23/2023 Active Carvedilol 6.25 MG Tablet 1 tablet with food Orally Twice a day Active traMADol HCl 50 MG Tablet 1 tablet as needed Orally every 6 hours 03/23/2024 Not-Taking ubidecarenone 30 MG Oral Capsule ORAL *Reorder from [employer] for eRx and Interaction Alerts* 07/23/2023 Not-Taking vitamin B12 1 MG Sublingual Tablet *Reorder from [employer] for eRx and Interaction Alerts* 07/23/2023 Not-Taking mometasone furoate 0.05 MG/ACTUAT Metered Dose Nasal [place] *Reorder from [employer] for eRx and Interaction Alerts* 07/23/2023 Not-Taking Tamsulosin HCl 0.4 MG Capsule Oral 07/23/2023 Not-Taking Melatonin 1 MG/4ML Liquid 4 mL at bedtime as needed Orally Once a day Not-Taking metFORMIN HCl 500 MG Tablet Oral 07/23/2023 Not-Taking Methocarbamol 750 MG Oral Tablet ORAL *Reorder from [employer] for eRx and Interaction Alerts* 07/23/2023 Not-Taking MiraLax 17 GM/SCOOP Powder 1 scoop mixed with 8 ounces of fluid Orally Once a day Not-Taking Mometasone Furoate 50 MCG/ACT Suspension 4 sprays (2 sprays in each nostril) Nasally Once a day Not-Taking Gabapentin 400 MG Capsule 1 capsule Orally Once a day Not-Taking insulin aspart, human 100 UNT/ML Injectable Solution [NovoLog] *Reorder from [employer] for eRx and Interaction Alerts* 09/25/2023 Not-Taking Losartan Potassium 50 MG Oral Tablet ORAL *Reorder from [employer] for eRx and Interaction Alerts* 07/23/2023 Not-Taking Fluconazole 200 MG Tablet 1 tablet Orally 03/23/2024 Not-Taking fluticasone propionate 0.1 MG/ACTUAT / salmeterol 0.05 MG/ACTUAT Dry Powder Inhaler INTRAPULMONARY *Reorder from [employer] for eRx and Interaction Alerts* 07/23/2023 Not-Taking Tylenol 325 MG Tablet 1 tablet as needed Orally every 6 hrs 03/23/2024 Active cholecalciferol 1.25 MG Oral Tablet ORAL *Reorder from [employer] for eRx and Interaction Alerts* 07/23/2023 Not-Taking Colace 100 MG Capsule 1 capsule as needed Orally Once a day Not-Taking Diltiazem Hydrochloride 60 MG Oral Tablet ORAL *Reorder from [employer] for eRx and Interaction Alerts* 07/23/2023 Not-Taking Dulcolax 10 MG Suppository 1 suppository as needed Rectal Once a day Not-Taking rivaroxaban 20 MG Oral Tablet [Xarelto] ORAL *Reorder from [employer] for eRx and Interaction Alerts* 07/23/2023 Active Rosuvastatin Calcium 40 MG Oral Tablet ORAL *Reorder from [employer] for eRx and Interaction Alerts* 07/23/2023 Active Tamsulosin HCl 0.4 MG Capsule 1 capsule Orally Once a day Active Pantoprazole Sodium 40 MG Tablet Delayed Release 1 tablet Orally BID 03/23/2024 Active Potassium Chloride ER 10 MEQ Tablet Extended Release 1 tablet with food Orally once daily Active Melatonin 1 MG Oral Tablet ORAL *Reorder from [facility] for eRx and Interaction Alerts* 07/23/2023 Active menthol 0.0044 MG/MG / zinc oxide 0.206 MG/MG Topical Ointment *Reorder from [facility] for eRx and Interaction Alerts* 09/25/2023 Active Metoprolol Tartrate 50 MG Tablet 1 tablet with food Orally Twice a day Active NovoLOG 100 UNIT/ML Solution as directed Injection Active oxyCODONE HCl 5 mg Active Furosemide 20 MG Oral Tablet ORAL *Reorder from [facility] for eRx and Interaction Alerts* 07/23/2023 Active [...] Active Encounters Encounter Location Date Provider Diagnosis [facility] [address] [place] [id number] 03/01/2025 Johncecile aMn Pyelonephritis N12 ; Unspecified Escherichia coli [E. [...] - He had placement of nephrostomy tube --24- 12-21-24; Exchange of bilateral percutaneous nephrostomy tubes [...] (start date 02-01-25) Labs 01-25-25 W 10.3, Home Appliance Tech .77, CRP .83 [facility] 03/01/2025 Unspecified Escherichia coli [E. coli] as [...] (start date 02-01-25) Labs 01-25-25 W 10.3, Home Appliance Tech .77, CRP .83 Follow up; [facility] 03/01/2025 Extended spectrum beta lactamase (ESBL) resistance [...] (start date 02-01-25) Labs 01-25-25 W 10.3, Home Appliance Tech .77, CRP .83 Follow up; [facility] 03/01/2025 Hydronephrosis, unspecified hydronephrosis type (ICD-10 - [...] (start date 02-01-25) Labs 01-25-25 W 10.3, Home Appliance Tech .77, CRP .83 Follow up; [facility] 03/01/2025 Ureteral stent present (ICD-10 - Z96.0) [...] (start date 02-01-25) Labs 01-25-25 W 10.3, Home Appliance Tech .77, CRP .83 Follow up; [facility] 03/01/2025 Intractable pain (ICD-10 - R52) 1. [...] (start date 02-01-25) Labs 01-25-25 W 10.3, Home Appliance Tech .77, CRP .83 [facility] 03/01/2025 Nephrostomy status (ICD-10 - Z93.6) 1. [...] (start date 02-01-25) Labs 01-25-25 W 10.3, Home Appliance Tech .77, CRP .83 Follow up; [facility] Plan Of Treatment Next Appt Details Provider Name:Ila Sabiha Godwin, 06/28/2025 02:10:00 PM, [address], [place] [address], [place], [address], Progress Notes * Raphael DEALDOB:[birth year] (75 yo M)Acc No.[id number]:03/01/2025 Progress Notes Patient: Raphael Meyer Provider: Lavern Man MD :1950 A ge:75 Y S ex:Male Date:03/01/2025 Address:Formerly named [facility] [address], [facility] [place], [id number] Pcp:Vinnie Garcia DO Subjective: * Chief Complaints: * [id number] WEEK F/U - UTI * HPI: P rovider Note: HFU 74-year-old male who was admitted for urosepsis at [place] 03/2024, history of COPD, BPH, 2DM, GRC, [...] reports he has recently been released from [facility] for sepsis reports he had infection [...] RECTAL , Notes to Pharmacist: *Reorder from [employer] for eRx and Interaction Alerts*Carvedilol 6.25 MG Tablet 1 tablet with food Orally Twice a day Coenzyme Q10 10 MG Capsule as directed Orally Cranberry 250 MG Tablet as directed Orally Finasteride 5 MG Tablet Oral Fish Oil 1000 MG Capsule 1 capsule Orally Three times a day Furosemide 20 MG Oral Tablet ORAL , Notes to Pharmacist: *Reorder from [employer] for eRx and Interaction Alerts*Galantamine Hydrobromide 4 MG Tablet 1 tablet with meals Orally Twice a day Insulin Glargine 100 UNIT/ML Solution Pen-injector as directed Subcutaneous Linezolid Melatonin 1 MG Oral Tablet ORAL , Notes to Pharmacist: *Reorder from [employer] for eRx and Interaction Alerts*menthol 0.0044 MG/MG / zinc oxide 0.206 MG/MG Topical Ointment , stop date 06/30/2025, Notes to Pharmacist: *Reorder from [facility] for eRx and Interaction Alerts*Metoprolol Tartrate 50 [...] ORAL , Notes to Pharmacist: *Reorder from [facility] for eRx and Interaction Alerts*Rosuvastatin Calcium 40 MG Oral Tablet ORAL , Notes to Pharmacist: *Reorder from [facility] for eRx and Interaction Alerts*Tamsulosin HCl 0.4 [...] RECTAL , Notes to Pharmacist: *Reorder from [facility] for eRx and Interaction Alerts*Taking Carvedilol 6.25 [...] ORAL , Notes to Pharmacist: *Reorder from [facility] for eRx and Interaction Alerts*Taking Galantamine Hydrobromide 4 MG Tablet 1 tablet with meals Orally Twice a day Taking Insulin Glargine 100 UNIT/ML Solution Pen-injector as directed Subcutaneous Taking Linezolid Taking Melatonin 1 MG Oral Tablet ORAL , Notes to Pharmacist: *Reorder from [facility] for eRx and Interaction Alerts*Taking menthol 0.0044 MG/MG / zinc oxide 0.206 MG/MG Topical Ointment , stop date 06/30/2025, Notes to Pharmacist: *Reorder from [facility] for eRx and Interaction Alerts*Taking Metoprolol Tartrate [...] ORAL , Notes to Pharmacist: *Reorder from [facility] for eRx and Interaction Alerts*Taking Rosuvastatin Calcium 40 MG Oral Tablet ORAL , Notes to Pharmacist: *Reorder from [facility] for eRx and Interaction Alerts*Taking Tamsulosin HCl 0.4 MG Capsule 1 capsule Orally Once a day Taking Tylenol 325 MG Tablet 1 tablet as needed Orally every 6 hrs Taking Fosfomycin Tromethamine 3 GM Packet as directed Orally Not-Takingcholecalciferol 1.25 MG Oral Tablet ORAL , Notes to Pharmacist: *Reorder from [facility] for eRx and Interaction Alerts*Colace 100 MG Capsule 1 capsule as needed Orally Once a day Diltiazem Hydrochloride 60 MG Oral Tablet ORAL , Notes to Pharmacist: *Reorder from [facility] for eRx and Interaction Alerts*Dulcolax 10 MG Suppository 1 suppository as needed Rectal Once a day Fluconazole 200 MG Tablet 1 tablet Orally fluticasone propionate 0.1 MG/ACTUAT / salmeterol 0.05 MG/ACTUAT Dry Powder Inhaler INTRAPULMONARY , Notes to Pharmacist: *Reorder from [facility] for eRx and Interaction Alerts*Gabapentin 400 MG Capsule 1 capsule Orally Once a day insulin aspart, human 100 UNT/ML Injectable Solution [NovoLog] , stop date 11/03/2027, Notes to Pharmacist: *Reorder from [facility] for eRx and Interaction Alerts*Losartan Potassium 50 MG Oral Tablet ORAL , Notes to Pharmacist: *Reorder from [facility] for eRx and Interaction Alerts*Melatonin 1 MG/4ML Liquid 4 mL at bedtime as needed Orally Once a day metFORMIN HCl 500 MG Tablet Oral Methocarbamol 750 MG Oral Tablet ORAL , Notes to Pharmacist: *Reorder from [facility] for eRx and Interaction Alerts*MiraLax 17 GM/SCOOP Powder 1 scoop mixed with 8 ounces of fluid Orally Once a day Mometasone Furoate 50 MCG/ACT Suspension 4 sprays (2 sprays in each nostril) Nasally Once a day mometasone furoate 0.05 MG/ACTUAT Metered Dose Nasal [place] , Notes to Pharmacist: *Reorder from [facility] for eRx and Interaction Alerts*Tamsulosin HCl 0.4 MG Capsule Oral traMADol HCl 50 MG Tablet 1 tablet as needed Orally every 6 hours ubidecarenone 30 MG Oral Capsule ORAL , Notes to Pharmacist: *Reorder from [facility] for eRx and Interaction Alerts*vitamin B12 1 MG Sublingual Tablet , Notes to Pharmacist: *Reorder from [facility] for eRx and Interaction Alerts*Not-Taking cholecalciferol 1.25 MG Oral Tablet ORAL , Notes to Pharmacist: *Reorder from [facility] for eRx and Interaction Alerts*Not-Taking Colace 100 MG Capsule 1 capsule as needed Orally Once a day Not-Taking Diltiazem Hydrochloride 60 MG Oral Tablet ORAL , Notes to Pharmacist: *Reorder from [facility] for eRx and Interaction Alerts*Not-Taking Dulcolax 10 MG Suppository 1 suppository as needed Rectal Once a day Not-Taking Fluconazole 200 MG Tablet 1 tablet Orally Not-Taking fluticasone propionate 0.1 MG/ACTUAT / salmeterol 0.05 MG/ACTUAT Dry Powder Inhaler INTRAPULMONARY , Notes to Pharmacist: *Reorder from [facility] for eRx and Interaction Alerts*Not-Taking Gabapentin 400 MG Capsule 1 capsule Orally Once a day Not-Taking insulin aspart, human 100 UNT/ML Injectable Solution [NovoLog] , stop date 11/03/2027, Notes to Pharmacist: *Reorder from [facility] for eRx and Interaction Alerts*Not-Taking Losartan Potassium 50 MG Oral Tablet ORAL , Notes to Pharmacist: *Reorder from [facility] for eRx and Interaction Alerts*Not-Taking Melatonin 1 MG/4ML Liquid 4 mL at bedtime as needed Orally Once a day Not-Taking metFORMIN HCl 500 MG Tablet Oral Not-Taking Methocarbamol 750 MG Oral Tablet ORAL , Notes to Pharmacist: *Reorder from [facility] for eRx and Interaction Alerts*Not-Taking MiraLax 17 GM/SCOOP Powder 1 scoop mixed with 8 ounces of fluid Orally Once a day Not-Taking Mometasone Furoate 50 MCG/ACT Suspension 4 sprays (2 sprays in each nostril) Nasally Once a day Not-Taking mometasone furoate 0.05 MG/ACTUAT Metered Dose Nasal [place] , Notes to Pharmacist: *Reorder from [facility] for eRx and Interaction Alerts*Not-Taking Tamsulosin HCl 0.4 MG Capsule Oral Not- Taking traMADol HCl 50 MG Tablet 1 tablet as needed Orally every 6 hours Not-Taking ubidecarenone 30 MG Oral Capsule ORAL , Notes to Pharmacist: *Reorder from [facility] for eRx and Interaction Alerts*Not-Taking vitamin B12 1 MG Sublingual Tablet , Notes to Pharmacist: *Reorder from [facility] for eRx and Interaction Alerts* Assessment: * [...] (start date 02-01-25) Labs 01-25-25 W 10.3, Home Appliance Tech .77, CRP .83 Follow up; [facility] Billing Information: * Procedure Codes: Care Plan Details* * Electronic signature of Lisa Man JR, MD on 06/20/2025 at 12:54 AM CDT Sign off status: Pending * Provider: Lavern Man MD Date: 0 03/01/2025 Generated for Nai irwin/Cyndie/Yann on: 0 06/20/2025 12:54 AM CDT
--- OUTSIDE RECORDS SUMMARY | 2025-03-22 05:00 | XMS_ITS ---
Author Organization [facility] Address [address] [place] [address] Care Team Providers Care Sericulturist Name Role Phone Vinnie Garcia DO Primary Care Provider John Andrews JR Unavailable [phone] Ila Fischer Unavailable [phone] REASON FOR VISIT 3m f/u w Christelle Encounters Encounter Location Date Provider Diagnosis [facility] [address] [place] [address] [address] 03/22/2025 Ila Fischer Plan Of Treatment Next Appt Details Provider Name:Ila Godwin, 06/28/2025 02:10:00 PM, [address] , [facility] [address], [place], [address], History and Physical Notes * HPI (History [...] June 13, 2024. He was referred to [facility]. He was told he was not medically [...] exchange with interventional radiology at [facility]. He was to have CBC, CMP, PSA [...] added to visit. Progress Notes * Raphael ROBINDOB:[birth year] (75 yo M)Acc No.[id number]:03/22/2025 Progress Notes Patient: Raphael Meyer Provider: WALT Rod :1950 A ge:75 Y S ex:Male Date:03/22/2025 Address:[address], [facility] [place], [id number] Pcp:Vinnie Garcia, Subjective: * Chief Complaints: * [...] June 13, 2024. He was referred to [facility]. He was told he was not medically [...] exchange with interventional radiology at [facility]. He was to have CBC, CMP, PSA [...] * Electronic signature of WALT Wall on 06/20/2025 at 12:55 AM CDT Sign off status: Pending * Provider: WALT Rod Date: 03/22/2025 Generated for Nai irwin/Cyndie/Abdonitting on: 06/20/2025 12:55 AM CDT
--- NOTE | 2025-06-20 00:41 | XRR_ITS ---
PROCEDURE INFORMATION: Exam: XR Chest Exam date and time: 06/20/2025 12:41 AM Age: 75 years old Clinical indication: Device placement; Picc; Prior surgery; Surgery date: 6+ months; Additional info: Picc issues TECHNIQUE: Imaging protocol: Radiologic exam of the chest. Views: 1 view. COMPARISON: CR XR chest 1V portable [id number] 11/30/2024 1:45 PM FINDINGS: Tubes, catheters and devices: A right upper extremity approach peripherally inserted central catheter is identified. The tip terminates at the superior cavoatrial junction. Lungs: No acute pulmonary process is identified. Pleural spaces: Unremarkable. No pleural effusion. No pneumothorax. Heart/Mediastinum: The heart is normal in size. Vasculature: Atherosclerotic changes of the aorta are noted. Bones/joints: Unremarkable. XR/XR chest 1V portable [id number] IMPRESSION: No acute pulmonary process.
[2025-06-20 00:51] VITALS: BP 127/63; PULSE 66; RESP 18; TEMP 36.5; O2SAT 100; BMI 27.3
--- NOTE | 2025-06-20 00:51 | ED_ITS ---
HPI - General Adult General: Stated complaint: PICC LINE Time Seen by Provider: 06/20/25 00:41 History of Present Illness: 75-year-old man who presents emergency r oom by ambulance from al[place] with PICC line problems. PICC line was occluded and they could not get it to flush. He has no complaints at this time. Related Data Home Medications ?Medication ?Instructions ?Recorded ?Confirmed fluticasone 100 mcg-salmeterol 50 1 inh inhalation BID 10/03/21 06/06/25 mcg/dose blistr powdr for inhalation (Wixela Inhub) acetaminophen 325 mg tablet 650 mg PO Q6H PRN Pain 06/06/25 (Tylenol) albuterol sulfate 90 mcg/actuation 2 puff inhalation Q 4H PRN Dyspnea 04/27/24 06/06/25 aerosol inhaler furosemide 20 mg tablet 20 mg PO DAILY 04/27/2411/29 atorvastatin 80 mg tablet 80 mg PO DAILY 11/26/2411/29 digoxin 125 mcg (0.125 mg) tablet 125 mcg PO DAILY 06/06/25 fluticasone propionate 50 1 spray intranasal DAILY 06/06/25 mcg/actuation nasal spray,suspension hydrocodone 7.5 mg-acetaminophen 1 tab PO BID PRN Pain 11/26/24 06/06/25 325 mg tablet insulin lispro 100 unit/mL See Rx Instructions .Route .COMPLEX 11/26/24 06/06/25 subcutaneous pen metformin 500 mg tablet 500 mg PO DAILY 11/26/2411/29 omeprazole 20 mg capsule,delayed 20 mg PO DAILY 06/06/25 release ondansetron HCl 4 mg tablet 4 mg PO TID PRN Nausea And Vomiting 11/26/24 06/06/25 amiodarone 200 mg tablet 200 mg PO DAILY 02/24/2511/29 fentanyl 100 mcg/hr transdermal 100 mcg transdermal 3X D 06/06/25 06/06/25 patch fosfomycin tromethamine 3 gram See Rx Instructions .Ro deann .COMPLEX 06/06/25 06/06/25 oral packet insulin glargine 100 unit/mL (3 25 unit SUBCUT DAILY 0 06/06/25 06/06/25 mL) subcutaneous pen (Lantus Solostar U-100 Insulin) insulin lispro 100 unit/mL 10 unit SUBCUT TIDWM 06/06/25 subcutaneous pen nystatin 100,000 unit/gram topical 1 applic topical TI D 06/06/25 06/06/25 powder polyethylene glycol 3350 17 17 g PO DAILY PRN Constipa tion 06/06/25 06/06/25 gram/dose oral powder (Miralax) simethicone 125 mg capsule See Rx Instructions .Route 06/06/25 06/06/25 .COMPLEX PRN Gas Previous Rx's ?Medication ?Instructions ?Recorded flash glucose scanning reader #1 ea 08/25/23 (FreeStyle Jimi 2 [place]) FreeStyle Jimi 2 Sensor (flash #6 ea 12/11/23 glucose sensor) blood-glucose sensor (Dexcom G7 #3 ea 02/08/24 Sensor device) 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 Skin symptoms: Negative except as documented in HPI. Eye symptoms: Negative except as documented in HPI. ENMT symptoms: Negative except as documented in HPI. Respiratory symptoms: Negative except as documented in HPI. Cardiovascular symptoms: Negative except as documented in HPI. Gastrointestinal symptoms: Negative except as documented in HPI. Genitourinary symptoms: Negative except as documented in HPI. Musculoskeletal symptoms: Negative except as documented in HPI. Neurologic symptoms: Negative except as documented in HPI. Psychiatric symptoms: Negative except as documented in HPI. Endocrine symptoms: Negative except as documented in HPI. [facility] ED PFSH: Medical History (Updated 06/20/25 @ 00:51 by Ricarda Elias MD) Yeast UTI Hematuria due to acute cystitis Mild cognitive impairment with memory loss Bacteriuria Alzheimer disease 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 mellitus History of Doppler ultrasound 08/2021 venous no DVT BLE 08/2021 arterial patent vessels, left posterior tibial may be less than 60% stenosis, left dorsalis pedis not visualized Gait instability SARS-CoV-2 positive positive test 11/17/2021 symptoms weakness, hypoglycemia, altered mental status and low grade fever Anemia Intermittent self-catheterization of bladder due to urinary retention History of sleep study 02/22 limited sleep, no apnea noted but did have nocturnal hypoxemia, recommended to use nocturnal oxygen History of electromyography 01/23 Interpretation: The study provides electrodiagnostic evidence for an axonal sensorimotor polyneuropathy based on small or absent CMAPs and SNAPs with denervation seen distally on EMG. The study is limited for evaluation of lumbar radiculopathy related to the patient's anticoagulated state. History of echocardiogram 05/2021 EF 65% History of cardiovascular stress test 05/2021 normal EKG response, perfusion study without findings of ischemia Diabetes mellitus, type II Chronic anticoagulation Taken off Xarelto secondary to hematuria BPH loc w urin obs/LUTS Obstructive pyelonephritis 09/2021 required ureteral stent placement Left ureteral calculus Diabetic foot ulcer 08/2021 - treated with I&D, antibiotics and wound care clinic management Lumbar stenosis with neurogenic claudication 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 mellitus Cervicalgia of [id number] region Lumbar stenosis L2/3, L3/4, L4/L5, with radiculopathy right lower extremity H/O prostate cancer Obstructive sleep apnea Refuses CPAP HTN (hypertension) previously on treatment for high blood pressure Atrial fibrillation Surgical History Status post excisional debridement 08/2021 left foot History of laminectomy 03/25 bilateral with partial facetectomies at L2-3, L3-4, L4-[address] Smith Other postprocedural status history of radiofrequency ablation for back pain x 2 Status post laser lithotripsy of ureteral calculus (11/06/21) S/P ureteral stent placement (09/2021) subsequent removal H/O esophagogastroduodenoscopy (10/30/21) 10/2021 pedunculated polyps removed from first portion of duodenum, otherwise normal History of colonoscopy (10/30/21) 11/2021 diverticulosis of sigmoid colon and internal hemorrhoids, sessile polyps removed History of back surgery S/P tonsillectomy S/P appendectomy History of pilonidal cyst Family History Grandmother Heart disease Hypertension Grandfather Hypertension MATERNAL Diabetes Mother No problems noted. Father No problems noted. 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 Skin: warm and dry. PICC line is in place in the right arm. Head: Normocephalic Neck: Trachea midline Eye: Extraocular movements are intact. Ears, nose, mouth and throat: Oral mucosa moist Respiratory: Respirations are non-labored Musculoskeletal: Normal ROM Gastrointestinal: Abdomen does not appear distended Neurological: Alert and oriented, No focal neurological deficit observed. Psychiatric: Cooperative, appropriate mood & affect. MDM - General Adult Medical Decision Making Medical decision making: Differential diagnosis including but not limited to and based on the above HPI, review of systems and physical exam: Either clot occlusion or mechanical occlusion. Orders placed to evaluate differential diagnosis based on the above differential, HPI and physical exam. Chest x-ray was ordered to evaluate PICC line placement. Chest x-ray: PICC line in place and appears normal. No acute process. No infiltrate. No pneumothorax. Films were interpreted by myself the emergency room provider and pending final radiology review. Assessment and plan: PICC line occlusion ?Heparin and line was flushed. - Discharged home - Discussed plan with patient. Answered any questions. - Evaluation and treatment of this problem were appropriate in the emergency setting. 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 [employer] Services Misc See Rx Instructions .Route Qty: 1 0RF Rx Instructions: As directed amiodarone 200 mg tablet 200 mg PO DAILY (DME) FreeStyle Jimi 2 [place] Misc See Rx Instructions .Route Qty: 1 0RF Rx Instructions: As directed (DME) FreeStyle Jimi 2 Sensor Kit See Rx Instructions .ROUTE .MEDSUPPLY Qty: 6 1RF Rx Instructions: change every 14 days fluticasone propion-salmeterol [Wixela Inhub] 100-50 mcg/dose Blister With Device 1 inh INHALATION BID acetaminophen [Tylenol] 325 mg Tablet 650 mg PO Q6H PRN (Reason: Pain) furosemide 20 mg tablet 20 mg PO DAILY albuterol sulfate 90 mcg/actuation HFA aerosol inhaler 2 puff INHALATION Q4H PRN (Reason: Dyspnea) insulin glargine [Lantus Solostar U-100 Insulin] 100 unit/mL (3 mL) insulin pen 25 unit SUBCUT DAILY fentanyl 100 mcg/hr patch 72 hour 100 mcg transdermal 3XD fosfomycin tromethamine 3 gram packet See Rx Instructions .ROUTE .COMPLEX Rx Instructions: 3 g orally on Thursday nystatin 100,000 unit/gram powder 1 applic TOPICAL TID simethicone 125 mg Capsule See Rx Instructions .ROUTE .COMPLEX PRN (Reason: Gas) Rx Instructions: Give 1-2 capsules by mouth four times daily after meals and at bedtime as needed for gas. No more than 4 in 24 hours. insulin lispro 100 unit/mL Insulin Pen 10 unit SUBCUT TIDWM polyethylene glycol 3350 [Miralax] 17 gram/dose Powder 17 g PO DAILY PRN (Reason: Constipation) atorvastatin 80 mg tablet 80 mg PO DAILY hydrocodone-acetaminophen 7.5-325 mg tablet 1 tab PO BID PRN (Reason: Pain) digoxin 125 mcg (0.125 mg) tablet 125 mcg PO DAILY fluticasone propionate 50 mcg/actuation spray,suspension 1 spray INTRANASAL DAILY insulin lispro 100 unit/mL insulin pen See Rx Instructions .ROUTE .COMPLEX Rx Instructions: Injecr per sliding scale: bs<60, call MD. Bs 201-250=2 units, 251-300=4 units, 301-350=6 units, 351-400=8 units, bs greater than 400=8 units. Bs less than 60 or greater than 400x 3 consecutive times or symptomatic, call MD. metformin 500 mg tablet 500 mg PO DAILY ondansetron HCl 4 mg Tablet 4 mg PO TID PRN (Reason: Nausea And Vomiting) omeprazole 20 mg capsule,delayed release(DR/EC) 20 mg PO DAILY Discharge Orders: Discharge ED (Routine); Ordered 06/20/25 Ordered By: Ricarda Elias Referrals: Trisha Urena MD [Primary Care Provider, [facility]] Discharge Diet: Usual diet Discharge Activity: Increase activity as tolerated Patient Instructions: How to Flush Your PICC (Peripherally Inserted Central Catheter) (ED), Opioid Safety, Pain Management, Patient Portal & Jamie Instructions Activity Restrictions/Additional Instructions: Thank you for choosing [facility] for your healthcare needs today. You have been screened and evaluated and felt safe for discharge. Health conditions do change or evolve sometimes and as such it is important that you follow up with your Primary Doctor to be re checked, 3-5 days is a general good time frame for follow up. 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
--- OUTSIDE RECORDS SUMMARY | 2025-06-20 00:53 | XMS_ITS | Patient Health Record ---
Author Organization [facility] Address [address] [place] [address] Care Team Providers Care Anthropology Faculty Member Name Role Phone Garcia Vinnie SAEED Primary Care Provider UnavailJohn Good JR Unavailable [phone] Migration, Provider Unavailable Unavailable Nury Flores Unavailable [phone] Frankie Hendrix Unavailable [phone] Ila Fischer Unavailable [phone] Allergies Allergen (clinical drug ingredient) Drug/Non Drug Allergy documented on EMR Reaction Allergy Type Onset Date Status atorvastatin Lipitor Unknown Drug Allergy Acti ve pravastatin Pravachol Unknown Drug Allergy Activ e gemfibrozil Gemfibrozil Unknown Drug Allergy Act arsenio pravastatin Pravastatin Unknown Drug Allergy Act arsenio Results Component Value Reference Range Flag Notes Prothrombin Time [id number] Reviewed date:12/23/2024 08:46:20 PM Interpretation: Performing Lab: Notes/Report: 5407 @ 2045; Report attempt @2049 5407 @ 2045 ProTime 11.8 9.1-11.9 SEC Normal Range : 9.1-11.9 INR 1.12 .90-1.20 Therapeutic Range: 2.0-3.0 Therapaeutic Range for heart valve replacement: 2.5-3.50 Culture Urine [id number] Reviewed date:12/23/2024 09:24:51 AM Interpretation: Performing Lab: Notes/Report: Culture Urine AKI Kelly Culture Urine t: Culture Urine Culture Urine Accessio [id number] Culture Urine n: Culture Urine Microbiology Culture Urine PROCEDURE: Culture Urine [O1] Culture Urine SOURCE: Urine BODY SITE: Culture Urine COLLECTED DATE/TIME: 12/20/2024 11:10 CDT RECEIVED DATE/TIME: 12/20/2024 14:59 CDT Culture Urine START DATE/TIME: 12/20/2024 14:59 CDT FREE TEXT SOURCE: Left perc tube Culture Urine FINAL REPORT Culture Urine Final Report [] Culture Urine Verified Date/Time: 12/23/2024 09:02 CDT Culture Urine >10,000 cfu/ml Marci tropicalis Culture Urine No further work-up is indicated Culture Urine Order Comments Culture Urine O1: Culture Urine (Culture Urine [id number]) Culture Urine Right perc tube Culture Urine Diagnosis Description: Other abnormal findings in urine Culture Urine [id number] Reviewed date:12/23/2024 09:25:47 AM Interpretation: Performing Lab: Notes/Report: Culture Urine AKI Kelly Culture Urine t: Culture Urine Culture Urine Accessio [id number] Culture Urine n: Culture Urine Microbiology Culture Urine PROCEDURE: Culture Urine [O1] Culture Urine SOURCE: Urine BODY SITE: Culture Urine COLLECTED DATE/TIME: 12/20/2024 11:11 CDT RECEIVED DATE/TIME: 12/20/2024 14:59 CDT Culture Urine START DATE/TIME: 12/20/2024 14:59 CDT FREE TEXT SOURCE: Right perc tube Culture Urine FINAL REPORT Culture Urine Final Report [] Culture Urine Verified Date/Time: 12/23/2024 09:02 CDT Culture Urine >10,000 cfu/ml Marci tropicalis Culture Urine No further work-up is indicated Culture Urine Order Comments Culture Urine O1: Culture Urine (Culture Urine [id number]) Culture Urine Diagnosis Description: Other abnormal findings in urine Culture Urine [id number] (Not yet reviewed by provider) Interpretation: Performing Lab: Notes/Report: Culture Urine AKI Kelly Culture Urine t: Culture Urine Culture Urine Accessio [id number] Culture Urine n: Culture Urine Microbiology Culture Urine PROCEDURE: Culture Urine [] Culture Urine SOURCE: U Cath BODY SITE: Culture Urine COLLECTED DATE/TIME: 06/11/2025 12:10 CDT RECEIVED DATE/TIME: 06/11/2025 13:59 CDT Culture Urine START DATE/TIME: 06/11/2025 13:59 CDT FREE TEXT SOURCE: Culture Urine FINAL REPORT Culture Urine Final Report [] Culture Urine Verified Date/Time: 06/14/2025 08:31 CDT Culture Urine >10,000 cfu/ml Marci tropicalis Culture Urine No further work-up is indicated Culture Urine [id number] Reviewed date:01/31/2025 08:27:40 AM Interpretation: Performing Lab: Notes/Report: Culture Urine AKI Kelly Culture Urine t: Culture Urine Culture Urine Accessio [id number] Culture Urine n: Culture Urine Microbiology Culture [...] Marci tropicalis Culture Urine No further work-up is indicated Culture Urine 73145 Reviewed date:01/05/2025 11:43:08 AM Interpretation: Performing Lab: Notes/Report: Culture Urine AKI Kelly Culture Urine t: Culture Urine Culture Urine Accessio [id number] Culture Urine n: Culture Urine Microbiology Culture [...] of yeast Culture Urine No further work-up is indicated Basic Metabolic Panel (BMP) 86293 Reviewed date:01/02/2025 09:13:51 AM Interpretation: Performing Lab: Notes/Report: 5407 @ 2045; Report attempt @2049 5407 @ 2045 Sodium 138 136-145 MMOL/L Potassium 4.5 3.5-5.1 MMOL/L Chloride 105 98-107 MMOL/L CO2 28.0 20.0-31.0 MMOL/L Glucose Serum 147 71-110 MG/DL HI Testing p erformed at [facility], [address] [place] [address] [place] [address]. CLIA ID#: [id number] BUN 24 7-21 MG/DL HI Creat .84 .57-1.17 MG/DL Use of this assay is not recommended for patients undergoing treatment with phenindione, due to the potential for falsely depressed results. H-aofpck-i-benzoquin one imine (NAPQI) is a metabolite of acetaminophen, NAPQI concentrations of apparoximately 10 mg/L correlation to toxic levels of acetaminophen demonstrates a greater than or equil to 10% change in results. NAPQI concentrations greater than this may lead to falsely depressed results for patient samples. GFR 90.6 NA Calculation pe rformed from GFR calculator provided by the [employer]. Glomerular Filtration rate(GRF) is the best overall index of kidney function. Normal GFR varies according to age,sex, body size, and declines with age. The National [employer] recommends using the CKD-EPI Creatinine Equation(2020) to estimate GFR. Anion Gap 10 5-15 BUN/Creat Ratio 28.6 12.0-20.0 % HI Calcium 8.9 8.7-10.4 MG/DL Osmo Serum,Calculated 293 280-300 MOSM/KG CBC w\ Auto Diff [id number] Reviewed date:06/14/2025 08:10:19 AM Interpretation: Performing Lab: Notes/Report: WBC 11.6 4.5-11.0 X10'3 HI RBC 3.39 4.50-5.90 X10'6 LOW Hgb 9.2 13.5-17.5 G/DL LOW Hct 28.9 41.0-53.0 % LOW MCV 85.3 80.0-100.0 FL MCH 27.1 27.0-31.0 PG MCHC 31.8 31.0-37.0 G/DL Platelet 383 150-400 X10'3 RDW-SD 47.8 35.0-49.0 FL RDW-CV 15.6 12.2-15.6 % MPV 9.8 9.2-12.0 FL Neutro Auto% 63.5 40.0-70.0 % Lymph Auto% 25.3 22.0-44.0 % [place] Auto% 5.9 3.0-7.0 % Eos Auto% 4.0 2.0-4.0 % Baso Auto% 0.8 0.0-1.0 % Imm Gran% .5 .0-.4 % HI Neutro Abs 7.35 .80-7.70 Absolute Neutrophil Count 7350 NA Lymph Abs 2.93 .10-4.10 [place] Abs .68 .20-1.00 Eos Abs .46 .00-.40 HI Baso Abs .09 .00-.20 Imm Gran Abs .06 .00-.10 NRBC# .00 .00-.20 NRBC% .00 .00-.20 /100 intact WBC's CBC w\ Auto Diff [id number] Reviewed date:01/26/2025 02:23:47 PM Interpretation: Performing Lab: Notes/Report: Diagnosis Description: Tubulo-interstitial nephritis, not specified as acute or chronic WBC 10.3 4.5-11.0 X10'3 RBC 4.23 4.50-5.90 X10'6 LOW Hgb 12.0 13.5-17.5 G/DL LOW Hct 39.1 41.0-53.0 % LOW MCV 92.4 80.0-100.0 FL MCH 28.4 27.0-31.0 PG MCHC 30.7 31.0-37.0 G/DL LOW Platelet 365 150-400 X10'3 RDW-SD 56.7 35.0-49.0 FL HI RDW-CV 16.6 12.2-15.6 % HI MPV 10.9 9.2-12.0 FL Neutro Auto% 64.9 40.0-70.0 % Lymph Auto% 23.9 22.0-44.0 % [place] Auto% 6.4 3.0-7.0 % Eos Auto% 3.7 2.0-4.0 % Baso Auto% 0.8 0.0-1.0 % Imm Gran% .3 .0-.4 % Neutro Abs 6.70 .80-7.70 Absolute Neutrophil Count 6700 NA Lymph Abs 2.47 .10-4.10 [place] Abs .66 .20-1.00 Eos Abs .38 .00-.40 Baso Abs .08 .00-.20 Imm Gran Abs .03 .00-.10 NRBC# .00 .00-.20 NRBC% .00 .00-.20 /100 intact WBC's CBC w\ Auto Diff [id number] Reviewed date:06/14/2025 08:10:19 AM Interpretation: Performing Lab: Notes/Report: WBC 13.1 4.5-11.0 X10'3 HI RBC 3.34 4.50-5.90 X10'6 LOW Hgb 9.1 13.5-17.5 G/DL LOW Hct 29.6 41.0-53.0 % LOW MCV 88.6 80.0-100.0 FL MCH 27.2 27.0-31.0 PG MCHC 30.7 31.0-37.0 G/DL LOW Platelet 390 150-400 X10'3 RDW-SD 50.3 35.0-49.0 FL HI RDW-CV 15.5 12.2-15.6 % MPV 10.3 9.2-12.0 FL Neutro Auto% 68.8 40.0-70.0 % Lymph Auto% 19.7 22.0-44.0 % LOW [place] Auto% 6.9 3.0-7.0 % Eos Auto% 3.4 2.0-4.0 % Baso Auto% 0.8 0.0-1.0 % Imm Gran% .4 .0-.4 % Neutro Abs 8.99 .80-7.70 HI Absolute Neutrophil Count 8990 NA Lymph Abs 2.58 .10-4.10 [place] Abs .90 .20-1.00 Eos Abs .44 .00-.40 HI Baso Abs .11 .00-.20 Imm Gran Abs .05 .00-.10 NRBC# .00 .00-.20 NRBC% .00 .00-.20 /100 intact WBC's Comprehensive Metabolic Pane l (CMP) 73549 Reviewed date:01/26/2025 02:23:47 PM Interpretation: Performing Lab: Notes/Report: Diagnosis Description: Tubulo-interstitial nephritis, not specified as acute or chronic Glucose Serum 280 71-110 MG/DL HI Testing p erformed at [facility], [address] [place] [address] Dr. Edi [place], [place] [address]. CLIA ID#: [id number] BUN 14 7-21 MG/DL Creat .77 .57-1.17 MG/DL Y-apbmni-u-benzoquin one imine (NAPQI) is a metabolite of acetaminophen, [...] potential for falsely depressed results. GFR 92.7 NA Calculation pe rformed from GFR calculator provided by the National [...] 142 136-145 MMOL/L Potassium 2.5 3.5-5.1 MMOL/L LOW Chloride 107 98-107 MMOL/L CO2 21.7 20.0-31.0 MMOL/L Anion Gap 16 5-15 HI Alk Phos 114 46-116 Bili Total <.2 .3-1.2 MG/DL LOW Use of this assay is not recommended for patients undergoing treatment with eltrombopag due to the potential for falsely elevated results. AST/SGOT 10 15-37 UNIT/L LOW ALT/SGPT <7 12-78 UNIT/L LOW Osmo Serum,Calculated 304 280-300 MOSM/KG HI Partial Thromboplastin Time 31501 Reviewed date:12/23/2024 08:46:50 PM Interpretation: Performing Lab: Notes/Report: 5407 @ 2045; Report attempt @2049 5406 @ 2045 PTT 28.9 22.6-31.8 SEC Critical Value Starting at > 100. Therapeutic Range: 60-100. Phosphorus (B) 18934 Reviewed date:01/02/2025 09:13:47 AM Interpretation: Performing Lab: Notes/Report: 5407 @ 2045; Report attempt @2049 5406 @ 2045 Phos 3.2 2.4-5.1 MG/DL Vancomycin Trough 98231 Reviewed date:02/01/2025 08:19:38 AM Interpretation: Performing Lab: Notes/Report: Vanco Tr 36.4 8.0-20.0 MCG/ML CRIT called to belen freeman 12/21/2024 13:23:48 dg CRP 74454 Reviewed date:01/05/2025 11:54:59 AM Interpretation: Performing Lab: Notes/Report: 5407 @ 2045; Report attempt @2049 5406 @ 2045 CRP 5.22 .40-1.00 MG/DL HI CRP 26928 Reviewed date:01/26/2025 02:23:47 PM Interpretation: Performing Lab: Notes/Report: Diagnosis Description: Tubulo-interstitial nephritis, not specified as acute or chronic CRP .83 .40-1.00 MG/DL CRP 13074 Reviewed date:06/14/2025 08:10:19 AM Interpretation: Performing Lab: Notes/Report: CRP 4.79 .40-1.00 MG/DL HI CRP 56267 Reviewed date:01/02/2025 09:12:14 AM Interpretation: Performing Lab: Notes/Report: 5407 @ 2045; Report attempt @2049 5406 @ 2045 CRP .62 .40-1.00 MG/DL CRP 22230 Reviewed date:01/02/2025 09:13:54 AM Interpretation: Performing Lab: Notes/Report: Pt is a line draw 12/26/2024 23:09:44 chutson 5407 @ 2045; Report attempt @2049 5406 @ 2045 CRP .79 .40-1.00 MG/DL CRP 33461 Reviewed date:01/05/2025 11:41:55 AM Interpretation: Performing Lab: Notes/Report: LINE 5407 @ 2045; Report attempt @2049 5406 @ 2045 CRP .94 .40-1.00 MG/DL CRP 54033 Reviewed date:01/05/2025 11:43:12 AM Interpretation: Performing Lab: Notes/Report: 5407 @ 2045; Report attempt @2049 5406 @ 2045 CRP 1.44 .40-1.00 MG/DL [place] MRI Lumbar Spine w/ + w/o Co nt-[id number] Reviewed date:02/01/2025 08:19:31 AM Interpretation: Performing Lab: Notes/Report: iai=[id number]&org=[facility] MRI Lumbar Spine w/ + w/o Co nt-[id number] Reviewed date:01/31/2025 08:29:45 AM Interpretation: Performing Lab: Notes/Report: See Below For Report Technique: Sagittal and axial T2 and pre and post contrast T1 and 5406 @ 2045; Report attempt @2049 Read See Below For Report Urinalysis--09521 Reviewed date:06/14/2025 08:10:19 AM Interpretation: Performing Lab: Notes/Report: Color UA Yellow NA Clarity UA Clear NA Specific gravity UA 1.009 1.005-1.030 Urine pH 6.5 5.0-8.0 NA Urine Glucose Trace NA Urine Bilirubin Negative NA Urine Ketone Negative NA Urine Blood 2+ NA Urine Protein 1+ NA Urobilinogen 0.2 0.1-1.0 NA Urine Nitrite Negative NA Urine Leukocyte 3+ NA Normal UA No Urinalysis--71218 Reviewed date:01/05/2025 11:46:37 AM Interpretation: Performing Lab: Notes/Report: need repeat urine for microscopic, thanks ELIZABETH ROBIN 5406 @ 2045; Report attempt @2049 540 @ 2045 Color UA Yellow NA Clarity UA Cloudy NA Specific gravity UA 1.013 1.005-1.030 Urine pH 7.5 5.0-8.0 NA Urine Glucose 1+ NA Urine Bilirubin Negative NA Urine Ketone Negative NA Urine Blood 1+ NA Urine Protein 1+ NA Urobilinogen 0.2 0.1-1.0 NA Urine Nitrite Negative NA Urine Leukocyte 3+ NA Normal UA No Urinalysis--83125 Reviewed date:01/31/2025 08:27:55 AM Interpretation: Performing Lab: Notes/Report: need microscopic 5407 @ 2045; Report attempt @2049 5407 @ 2045 Color UA Yellow NA Clarity UA Turbid NA Specific gravity UA 1.021 1.005-1.030 Urine pH 5.5 5.0-8.0 NA Urine Glucose Trace NA Urine Bilirubin Negative NA Urine Ketone Negative NA Urine Blood 3+ NA Urine Protein 2+ NA Urobilinogen 0.2 0.1-1.0 NA Urine Nitrite Negative NA Urine Leukocyte 3+ NA Normal UA No UA Microscopic--77384 Reviewed date:01/05/2025 11:46:34 AM Interpretation: Performing Lab: Notes/Report: Micro UA ordered by [employer] Expert Rules system. 5407 @ 2045; Report attempt @2049 5407 @ 2045 RBC U 3 NA WBC U 375 0-5 /HPF HI Bacteria None Seen Hyaline Casts 3 NA SQ EPI <1 NA UA Microscopic--12318 Reviewed date:01/31/2025 08:27:52 AM Interpretation: Performing Lab: Notes/Report: Micro UA ordered by [employer] Expert Rules system. 5407 @ 2045; Report attempt @2049 5407 @ 2045 RBC U 655 NA WBC U >999 0-5 /HPF HI Bacteria 1+ Hyaline Casts 3 NA Granular Casts Present SQ EPI 1 NA Budding Yeast Present UA Microscopic--12610 Reviewed date:06/14/2025 08:10:19 AM Interpretation: Performing Lab: Notes/Report: Micro UA ordered by [employer] Expert Rules system. RBC U 47 NA WBC U 90 0-5 /HPF HI Bacteria None Seen SQ EPI 2 NA Budding Yeast Present zzzCT Outside CD Reviewed date:06/11/2025 11:56:54 AM Interpretation: Performing Lab: Notes/Report: [id number]&org=[facility] zsanjuMRI Outside CD Reviewed date:06/11/2025 11:56:54 AM Interpretation: Performing Lab: Notes/Report: [id number]&org=[facility] zzzMRI Outside CD Reviewed date:06/11/2025 11:56:54 AM Interpretation: Performing Lab: Notes/Report: cwy=[id number]&[facility] MRI Lumbar Spine w/ + w/ o Cont-[id number] Reviewed date:06/11/2025 11:56:54 AM Interpretation: Performing Lab: Notes/Report: [id number]&org=[facility] MRI Lumbar Spine w/ + w/ o Cont-[id number] Reviewed date:06/11/2025 11:56:54 AM Interpretation: Performing Lab: Notes/Report: See Below For Report MRI Lumbar Spine w/ + w/o Cont Read See Below For Report Reason For Referral Reason UTI (Expires 12/07/ 6) 12/20 Diagnosis 1 UTI symptoms (R39.9) Referring Provider First Name Judy Referring Provider Last Name Ernestine [facility]erred Organization [facility]ious Disease Referred Provider Nury Flores Referred Address [address],[place], [place],[address], Referred Provider Specialty Nurse Tolu elizalde Referral Priority Routine Reason Urinary tract infect ion Diagnosis 1 Urinary tract infect ion (N39.0) Referring Provider First Name Carla bettencourt Referring Provider Last Name [place] Referring Provider [facility] Referred Organization [facility] Referred Provider Frankie Hendrix Referred Address [address], [place],[address], Referred Provider Specialty Urology Referral Priority Routine Reason Nephrostomy tubes Diagnosis 1 Nephrostomy status ( Z93.6) Referring Provider First Name Trisha Referring Provider Last Name [facility] Referring Provider [facility] jeniffer Referred Organization [facility] Referred Provider Frankie Hendrix Referred Address [address],[place], [place],[address], Referred Provider Specialty Urology Referral Priority Routine Reason Hydronephrosis Diagnosis 1 Hydronephrosis (N13. 30) Referring Provider First Name Carla Bee ff Referring Provider Last Name [place] Referring Provider [facility] Referred Organization [facility] Referred Provider Frankie Hendrix Referred Address [address],[place], [place],[address], Referred Provider Specialty Urology Referral Priority Routine Medications Medication SIG (Take, Route, Frequency, Duration) Notes Start Date End Date Status Galantamine Hydrobromide 4 MG Tablet 1 tablet with meals Orally Twice a day Active Linezolid Active Insulin Glargine 100 UNIT/ML Solution Pen-injector as directed Subcutaneous Active menthol 0.0044 MG/MG / zinc oxide 0.206 MG/MG Topical Ointment *Reorder from [facility] for eRx and Interaction Alerts* 09/25/2023 Active Melatonin 1 MG Oral Tablet ORAL *Reorder from [facility] for eRx and Interaction Alerts* 07/23/2023 Active Cranberry 250 MG Tablet as directed Orally Active Dulcolax 10 MG Suppository 1 suppository as needed Rectal Once a day Not-Taking Coenzyme Q10 10 MG Capsule as directed Orally Active Diltiazem Hydrochloride 60 MG Oral Tablet ORAL *Reorder from [facility] for eRx and Interaction Alerts* 07/23/2023 Not-Taking Fish Oil 1000 MG Capsule 1 capsule Orally Three times a day Active fluticasone propionate 0.1 MG/ACTUAT / salmeterol 0.05 MG/ACTUAT Dry Powder Inhaler INTRAPULMONARY *Reorder from [facility] for eRx and Interaction Alerts* 07/23/2023 Not-Taking traMADol HCl 50 MG Tablet 1 tablet as needed Orally every 6 hours 03/23/2024 Not-Taking Finasteride 5 MG Tablet Oral 07/23/2023 Active Fluconazole 200 MG Tablet 1 tablet Orally 03/23/2024 Not-Taking Furosemide 20 MG Oral Tablet ORAL *Reorder from [facility] for eRx and Interaction Alerts* 07/23/2023 Active vitamin B12 1 MG Sublingual Tablet *Reorder from [facility] for eRx and Interaction Alerts* 07/23/2023 Not-Taking Fosfomycin Tromethamine 3 GM Packet as directed Orally 02/01/2025 Active ubidecarenone 30 MG Oral Capsule ORAL *Reorder from [facility] for eRx and Interaction Alerts* 07/23/2023 Not-Taking Rosuvastatin Calcium 40 MG Oral Tablet ORAL *Reorder from [facility] for eRx and Interaction Alerts* 07/23/2023 Active rivaroxaban 20 MG Oral Tablet [Xarelto] ORAL *Reorder from [facility] for eRx and Interaction Alerts* 07/23/2023 Active Amiodarone HCl 200 MG Tablet 1 tablet Orally Once a day Active Tylenol 325 MG Tablet 1 tablet as needed Orally every 6 hrs 03/23/2024 Active Albuterol Sulfate 108 (90 Base) MCG/ACT Aerosol Powder Breath Activated 1 puff as needed Inhalation every 4 hrs Active Tamsulosin HCl 0.4 MG Capsule 1 capsule Orally Once a day Active Carvedilol 6.25 MG Tablet 1 tablet with food Orally Twice a day Active Colace 100 MG Capsule 1 capsule as needed Orally Once a day Not-Taking bisacodyl 10 MG Rectal Suppository [Dulcolax] RECTAL *Reorder from [facility] for eRx and Interaction Alerts* 07/23/2023 Active cholecalciferol 1.25 MG Oral Tablet ORAL *Reorder from [facility] for eRx and Interaction Alerts* 07/23/2023 Not-Taking NovoLOG 100 UNIT/ML Solution as directed Injection Active Metoprolol Tartrate 50 MG Tablet 1 tablet with food Orally Twice a day Active Pantoprazole Sodium 40 MG Tablet Delayed Release 1 tablet Orally BID 03/23/2024 Active oxyCODONE HCl 5 mg Active insulin aspart, human 100 UNT/ML Injectable Solution [NovoLog] *Reorder from [facility] for eRx and Interaction Alerts* 09/25/2023 Not-Taking Potassium Chloride ER 10 MEQ Tablet Extended Release 1 tablet with food Orally once daily Active Gabapentin 400 MG Capsule 1 capsule Orally Once a day Not-Taking Melatonin 1 MG/4ML Liquid 4 mL at bedtime as needed Orally Once a day Not-Taking Losartan Potassium 50 MG Oral Tablet ORAL *Reorder from [facility] for eRx and Interaction Alerts* 07/23/2023 Not-Taking Methocarbamol 750 MG Oral Tablet ORAL *Reorder from [facility] for eRx and Interaction Alerts* 07/23/2023 Not-Taking metFORMIN HCl 500 MG Tablet Oral 07/23/2023 Not-Taking Mometasone Furoate 50 MCG/ACT Suspension 4 sprays (2 sprays in each nostril) Nasally Once a day Not-Taking MiraLax 17 GM/SCOOP Powder 1 scoop mixed with 8 ounces of fluid Orally Once a day Not-Taking Tamsulosin HCl 0.4 MG Capsule Oral 07/23/2023 Not-Taking mometasone furoate 0.05 MG/ACTUAT Metered Dose Nasal [place] *Reorder from [facility] for eRx and Interaction Alerts* 07/23/2023 Not-Taking Social History Section Notes: Non smoker Non smoker Non smoker Non smoker Non smoker Non smoker Problems Problem Type SNOMED Code ICD Code Onset Dates Problem Status W/U Status Risk Notes Problem Malignant neoplasm of prostate (278165284) Malignant neoplasm of prostate (C61) Active confirmed Problem 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 Problem 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 Problem 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 Problem Chronic kidney disease (572964082) Chronic kidney disease, unspecified (N18.9) Active confirmed Problem Disorder of urinary bladder (75593044) Other specified disorders of bladder (N32.89) Active confirmed Problem Disorder of urinary bladder (90982821) Bladder disorder, unspecified (N32.9) Active confirmed Problem Hallucinations (6383302) Hallucinations, unspecified (R44.3) Active confirmed Problem History of malignant neoplasm of prostate (244931590) Personal history of malignant neoplasm of prostate (Z85.46) Active confirmed Problem Urostomy present (658049975) Other artificial openings of urinary tract status (Z93.6) Active confirmed Problem Urogenital implant (120838667) Presence of urogenital implants (Z96.0) Active confirmed Problem Altered mental status (014370851) Altered mental status, unspecified altered mental status type (R41.82) Active confirmed Problem Discitis of lumbar region (430133421) 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) Active confirmed Problem History of malignant neoplasm of prostate (981872168) Personal history of prostate cancer (Z85.46) Active confirmed Problem History of radiation therapy (656510212) History of radiation therapy (Z92.3) Active confirmed Problem Nephrostomy (95004483) Nephrostomy status (Z93.6) Active confirmed Problem Chronic kidney disease stage 3 (disorder) (504802566) Chronic kidney disease, stage 3 unspecified (N18.30) Active confirmed Problem History of external beam radiation therapy (79157885481398) History of external beam radiation therapy (Z92.3) Active confirmed Problem Lumbar discitis (138364674) 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) Active confirmed Problem Ureteral stent present (Z96.0) Active confirmed Problem Obstructive pyelonephritis (6301922333281) Obstructive pyelonephritis (N11.1) Active confirmed Problem Nephrostomy present (70940378483995) Nephrostomy present (Z93.6) Active confirmed Vital Signs Heart Rate 81 /min 03/31/2025 Temperature 98.3 degrees Fahrenheit 03/31/2025 Oximetry 99 % 02/01/2025 Height-cm 172.72 cm 03/31/2025 Blood pressure diastolic 66 mm Hg 03/31/2025 Weight-kg 44.57 kg 12/20/2024 Height 68.00 in 03/31/2025 Blood pressure systolic 111 mm Hg 03/31/2025 Weight 98.26 lbs 12/20/2024 BMI 14.94 kg/m2 12/20/2024 Encounters Encounter Location Date Provider Diagnosis [facility] [address] [place] [address], [place] [address] 12/20/2024 Frankie Ruma Bilateral hydronephrosis N13.30 ; Personal history of prostate cancer Z85.46 ; Bladder disorder N32.9 ; Other abnormal findings in urine R82.998 and Unspecified abnormal findings in urine R82.90 [facility] [address] [place] [address], [place] [address] 12/20/2024 Nury [place] Pyelonephritis N12 ; Unspecified Escherichia coli [E. 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 ; Hydronephrosis, unspecified hydronephrosis type N13.30 ; Ureteral stent present Z96.0 ; Intractable pain R52 and Nephrostomy status Z93.6 [facility] [address] [place] [address], [place] [address] 01/25/2025 Nury [place] Pyelonephritis N12 ; Unspecified Escherichia coli [E. 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 ; Hydronephrosis, unspecified hydronephrosis type N13.30 ; Ureteral stent present Z96.0 ; Intractable pain R52 and Nephrostomy status Z93.6 [facility] [address] [place] [address], [place] [address] 02/01/2025 Johncecile Man Pyelonephritis N12 ; Unspecified Escherichia coli [E. 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 Migrated_Facility 0 0 07/30/2024 Provider Migration Migrated_Facility 0 0 07/31/2024 Provider Migration [facility] [address] [place] [address] 07/19/2024 [facility] [address] [place] [address] [address] [place] [address] 07/25/2024 [facility] [address] [place] [address] [address] [place] [address] 10/14/2024 [facility] [address] [place] [address] [address] [place] [address] 12/02/2024 [facility] [address] [place] [address] [address] [place] [address] 12/07/2024 [facility] [address] [place] [address] [address] [place] [address] 12/19/2024 [facility] [address] [place] [address] [address] [place] [address] 12/20/2024 [facility] [address] [place] [address] [address] [place] [address] 12/20/2024 Frankie Hendrix Other abnormal findings in urine R82.998 [facility] [address] [place] [address] [address] [place] [address] 12/20/2024 Frankie Jacksay [facility] [address] [place] [address] [address] [place] [address] 12/21/2024 Frankie Hendrix [facility] [address] [place] [address] [address] [place] [address] 12/22/2024 [facility] [address] [place] [address] 01/09/2025 Nury Flores [facility] [address] [place] [address] 03/21/2025 Frankie Hendrix [facility] [address] [place] [address] [address] [place] [address] 03/22/2025 Frankie Jacksay [facility] [address] [place] [address] [address] [place] [address] 03/31/2025 Frankie Hendrix Malignant neoplasm o f right ureter C66.1 ; Nephrostomy status Z93.6 and Ureteral stent present Z96.0 [facility] [address] [place] [address] [address] [place] [address] 04/10/2025 Frankie Jacksay [facility] [address] [place] [address] [address] [place] [address] 05/05/2025 Frankie Hendrix Assessments Encounter Date Diagnosis (ICD Code) Assessment Notes Treatment Notes Treatment Clinical Notes Section Notes 12/20/2024 Other abnormal findings in urine (ICD-10 - R82.998) 12/20/2024 Pyelonephritis (ICD-10 - N12) 1. R ureter obstruction, severe hydronephrosis , chronic contracted bladder - s/p Right ureteral stent exchange on March 08, 2024. - to be seen this week at [facility] for ileal conduit and urinary diversion 2. Last seen here in clinic April 2024 Patient recently released from [facility], no medical records to review, per patient and daughter UTI sepsis and back infection I will request records 3. Nephrostomy tubes in place bilaterally, seen by Dr. Hendrix today Per patient report seen by [facility], not stable for ileal conduit surgery at this time 4. Intractable back pain abdominal pain hip pain, will refer patient to the emergency room for evaluation He will need close follow-up in the clinic 12/20/2024 Unspecified Escherichia coli [E. coli] as the cause of diseases classified elsewhere (ICD-10 - B96.20) 1. R ureter obstruction, severe hydronephrosis , chronic contracted bladder - s/p Right ureteral stent exchange on March 08, 2024. - to be seen this week at [facility] for ileal conduit and urinary diversion 2. Last seen here in clinic April 2024 Patient recently released from [facility], no medical records to review, per patient and daughter UTI sepsis and back infection I will request records 3. Nephrostomy tubes in place bilaterally, seen by Dr. Hendrix today Per patient report seen by [facility], not stable for ileal conduit surgery at this time 4. Intractable back pain abdominal pain hip pain, will refer patient to the emergency room for evaluation He will need close follow-up in the clinic 12/20/2024 Bilateral hydronephrosis (ICD-10 - N13.30) 12/20/2024 Personal history of prostate cancer (ICD-10 - Z85.46) 01/25/2025 Pyelonephritis (ICD-10 - N12) 1. 74 [...] (start date 02-01-25) Labs 01-25-25 W 10.3, [employer] .77, CRP .83 Follow up; 1 month Maria Alejandra Degroot 03/31/2025 Nephrostomy status (ICD-10 - Z93.6) NEEDS NEPHROSTOMY TUBE CHANGE IN EARLY 03/31/2025 Hydronephrosis, unspecified hydronephrosis type (ICD-10 - N13.30) HX OF THIS DUE TO UROPATHY 03/31/2025 Malignant neoplasm of right ureter (ICD-10 - C66.1) 03/31/2025 Nephrostomy status (ICD-10 - Z93.6) 03/31/2025 Personal history of malignant neoplasm of prostate (ICD-10 - Z85.46) EBRT IN THE PAST, HAS CAUSED ISSUES WITH BLADDER 02/01/2025 Unspecified Escherichia coli [E. coli] as [...] (start date 02-01-25) Labs 01-25-25 W 10.3, [employer] .77, CRP .83 Follow up; 1 month Maria Alejandra Degroot 01/25/2025 Unspecified Escherichia coli [E. 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 R ureter obstruction, severe hydronephrosis , chronic contracted bladder - s/p Right ureteral stent exchange on March 08, 2024. - to be seen this week at [facility] for ileal conduit and urinary diversion 2. Last seen here in clinic April 2024 Patient recently released from [facility], no medical records to review, per patient and daughter UTI sepsis and back infection I will request records 3. Nephrostomy tubes in place bilaterally, seen by Dr. Hendrix today Per patient report seen by [facility], not stable for ileal conduit surgery at this time 4. Intractable back pain abdominal pain hip pain, will refer patient to the emergency room for evaluation He will need close follow-up in the clinic 12/20/2024 Hydronephrosis, unspecified hydronephrosis type (ICD-10 - N13.30) 1. R ureter obstruction, severe hydronephrosis , chronic contracted bladder - s/p Right ureteral stent exchange on March 08, 2024. - to be seen this week at [facility] for ileal conduit and urinary diversion 2. Last seen here in clinic April 2024 Patient recently released from [facility], no medical records to review, per patient and daughter UTI sepsis and back infection I will request records 3. Nephrostomy tubes in place bilaterally, seen by Dr. Hendrix today Per patient report seen by [facility], not stable for ileal conduit surgery at this time 4. Intractable back pain abdominal pain hip pain, will refer patient to the emergency room for evaluation He will need close follow-up in the clinic 01/25/2025 Extended spectrum beta lactamase (ESBL) resistance [...] house today follow-up in 1 week 02/01/2025 Extended spectrum beta lactamase (ESBL) resistance [...] (start date 02-01-25) Labs 01-25-25 W 10.3, [employer] .77, CRP .83 Follow up; 1 month Maria Alejandra Degroot 03/31/2025 History of external beam radiation therapy (ICD-10 - Z92.3) SEE ABOVE NOTE 03/31/2025 Ureteral stent present (ICD-10 - Z96.0) 03/31/2025 Malignant neoplasm of right ureter (ICD-10 - C66.1) SMALL 12 MM MASS FOUND IN RIGHT URETER AND LOWER RIGHT KIDNEY 02/01/2025 Hydronephrosis, unspecified hydronephrosis type (ICD-10 - [...] (start date 02-01-25) Labs 01-25-25 W 10.3, [employer] .77, CRP .83 Follow up; 1 month Maria Alejandra Degroot 01/25/2025 Hydronephrosis, unspecified hydronephrosis type (ICD-10 - [...] house today follow-up in 1 week 12/20/2024 Other abnormal findings in urine (ICD-10 - R82.998) 12/20/2024 Ureteral stent present (ICD-10 - Z96.0) 1. R ureter obstruction, severe hydronephrosis , chronic contracted bladder - s/p Right ureteral stent exchange on March 08, 2024. - to be seen this week at [facility] for ileal conduit and urinary diversion 2. Last seen here in clinic April 2024 Patient recently released from [facility], no medical records to review, per patient and daughter UTI sepsis and back infection I will request records 3. Nephrostomy tubes in place bilaterally, seen by Dr. Hendrix today Per patient report seen by [facility], not stable for ileal conduit surgery at this time 4. Intractable back pain abdominal pain hip pain, will refer patient to the emergency room for evaluation He will need close follow-up in the clinic 12/20/2024 Intractable pain (ICD-10 - R52) 1. R ureter obstruction, severe hydronephrosis , chronic contracted bladder - s/p Right ureteral stent exchange on March 08, 2024. - to be seen this week at [facility] for ileal conduit and urinary diversion 2. Last seen here in clinic April 2024 Patient recently released from [facility], no medical records to review, per patient and daughter UTI sepsis and back infection I will request records 3. Nephrostomy tubes in place bilaterally, seen by Dr. Hendrix today Per patient report seen by [facility], not stable for ileal conduit surgery at this time 4. Intractable back pain abdominal pain hip pain, will refer patient to the emergency room for evaluation He will need close follow-up in the clinic 12/20/2024 Unspecified abnormal findings in urine (ICD-10 - R82.90) 01/25/2025 Ureteral stent present (ICD-10 - Z96.0) [...] (start date 02-01-25) Labs 01-25-25 W 10.3, [employer] .77, CRP .83 Follow up; 1 month [facility] 02/01/2025 Intractable pain (ICD-10 - R52) 1. [...] (start date 02-01-25) Labs 01-25-25 W 10.3, [employer] .77, CRP .83 Follow up; 1 month [facility] 01/25/2025 Intractable pain (ICD-10 - R52) 1. [...] - to be seen this week at [facility] for ileal conduit and urinary diversion 2. Last seen here in clinic April 2024 Patient recently released from [facility], no medical records to review, per patient and daughter UTI sepsis and back infection I will request records 3. Nephrostomy tubes in place bilaterally, seen by Dr. Hendrix today Per patient report seen by [facility], not stable for ileal conduit surgery at this time 4. Intractable back pain abdominal pain hip pain, will refer patient to the emergency room for evaluation He will need close follow-up in the clinic 01/25/2025 Nephrostomy status (ICD-10 - Z93.6) 1. [...] house today follow-up in 1 week 02/01/2025 Nephrostomy status (ICD-10 - Z93.6) 1. [...] (start date 02-01-25) Labs 01-25-25 W 10.3, [employer] .77, CRP .83 Follow up; 1 month Maria Alejandra Degroot 12/20/2024 Other Schedule bilateral percutaneous nephrostomy [facility] These will need to be changed every 3 months. cbc, bmp, PSA now. [facility] today. Please obtain and if it is that is fine. follow up 3 months with nurse pracdtitioner. Cutlure urine from each [facility]. 12/20/[address] Man, referring patient to the emergency room for intractable pain evaluation No medical records from [facility] to review 1. R ureter obstruction, severe hydronephrosis , chronic contracted bladder - s/p Right ureteral stent exchange on March 08, 2024. - to be seen this week at [facility] for ileal conduit and urinary diversion 2. Last seen here in clinic April 2024 Patient recently released from [facility], no medical records to review, per patient and daughter UTI sepsis and back infection I will request records 3. Nephrostomy tubes in place bilaterally, seen by Dr. Hendrix today Per patient report seen by [facility], not stable for ileal conduit surgery at this time 4. Intractable back pain abdominal pain hip pain, will refer patient to the emergency room for evaluation He will need close follow-up in the clinic 03/31/2025 Other FOLLOW UP IN 3 MONTHS UA, CT ABDOMEN NO CONTRAST, CBC, CMP - IMAGING MUST BE DONE AT [facility] SEND ORDER FOR NEPHROSTOMY TUBE EXCHANGE OUTPATIENT TO BE COMPLETED IN EARLY MAY TO RADIOLOGY FOR DR CAMACHO OR DR HOUSER Plan Of Treatment Pending Test Test Name Order Date Culture Urine [id number] 06/11/2025 PSA Diagnostic--[id number] 05/26/2024 Future Test Test Name Order Date CBC w\ Auto Diff [id number] 06/05/2025 Comprehensive Metabolic Panel (CMP) [id number] 3 06/05/2025 CT Abdomen w/o Contrast-[id number] 06/05/2025 Next Appt Details Provider Name:Ila Godwin, 06/28/2025 02:10:00 PM, [address], [place], [address], Insurance Providers Payer Name Payer Address Payer Phone Subscriber Number Group Number Insured Name Patient Relationship to Insured Coverage Start Date Coverage End Date Out of Network [facility] Medicare Replacement [address] [address] [place] [address] [phone] [id number] Aki Deal Self - patient is the insured [employer] [address] [place] [phone] [id number] RegisAki fiore Self - patient is the insured Medical [...]
--- OUTSIDE RECORDS SUMMARY | 2025-06-20 00:53 | XMS_ITS | Continuity of Care Document ---
Author Organization [facility] Address [address] [place] [address] Care Team Providers Care Attending Psychiatrist Name Role Phone Dr. Vinnie Garcia DO Attending Physician Medications Medication Frequency Instructions Diagnosis Start Date End Date Last Administered acetaminophen 325 mg tablet Every 6 Hours - PRN 2 tabs (650 mg), oral, Every 6 Hours - PRN, For pain/fever 06/14/20 25 albuterol sulfate 90 mcg/actuation HFA aerosol inhaler Every 4 Hours - PRN 2 puffs, inhalation, Every 4 Hours - PRN, For SOB or wheezing 06/14/20 25 atorvastatin 80 mg tablet Once A Day 1 tab, oral, Once A Day 06/14/20 25 06/15/2025 06:42 AM ceftazidime 2 gram recon soln Every 8 Hours 2 gram, intravenous, Every 8 Hours, Through 06/23/25 06/14/20 25 025 06/15/2025 06:42 AM digoxin 125 mcg (0.125 mg) tablet Once A Day 1 tab, oral, Once A Day 06/14/20 25 06/15/2025 06:42 AM fentanyl 100 mcg/hr patch 72 hour Every 72 Hours 1 patch, transdermal, Every 72 Hours, Remove old patch before placing new patch. 06/14/20 fluconazole 200 mg tablet Once A Day 2 tabs (400 mg), oral, Once A Day, 5 day auto stop per TI 06/14/20 025 06/15/2025 06:42 AM fluticasone propion-salmetero l 100-50 mcg/dose blister with device Twice A Day 1 puff, inhalation, Twice A Day, Have pt rinse mouth with water and spit after use. 06/14/2006/15/2025 06:42 AM fluticasone propionate 50 mcg/actuation spray,suspension Once A Day 1 spray, nasal, Once A Day, Each nostril 06/14/2006/15/2025 06:42 AM fosfomycin tromethamine 3 gram packet Once A Day on Thu 1 packet, oral, Once A Day on Thu, Mix as directed. 06/14/20 furosemide 20 mg tablet Once A Day 1 tab, oral, Once A Day 06/14/2006/15/2025 06:42 AM hydrocodone-aceta minophen 7.5-325 mg tablet Every 12 Hours - PRN 1 tab, oral, Every 12 Hours - PRN, For pain, exempt R52 06/14/20 insulin glargine-yfgn 100 unit/mL (3 mL) insulin pen Once A Day 25 units, subcutaneous, Once A Day 06/14/20 25 06/15/2025 06:42 AM insulin lispro 100 unit/mL insulin pen Before Meals 10 units, subcutaneous, Before Meals 06/14/20 25 06/15/2025 06:49 AM insulin lispro 100 unit/mL insulin pen [...] is 351 to 400, give 8 Units. 06/14/2006/15/2025 06:49 AM metformin 500 mg tablet Once A Day 1 tab, oral, Once A Day 06/14/2006/15/2025 06:42 AM Normal Saline Flush (sodium chloride 0.9 %) - syringe Every Shift 5ml, injection, Every Shift, Flush with 5ml NS before and after use(SAS) 06/14/2006/15/2025 06:42 AM nystatin 100,000 unit/gram powder Three Times A Day 1 ana, topical, Three Times A Day 06/14/2006/15/2025 06:42 AM omeprazole 20 mg capsule,delayed release(DR/EC) Once A Day 1 cap, oral, Once A Day 06/14/2006/15/2025 06:42 AM ondansetron HCl 4 mg tablet Three Times A Day - PRN 1 tab, oral, Three Times A Day - PRN, For nausea/vomiting , take before meals 06/14/20 silver sulfadiazine 1 % cream Twice A Day 1 ana, topical, Twice A Day, Apply buttock and cover with foam dressing. 06/14/2006/15/2025 06:42 AM simethicone 125 mg capsule Before Meals and At Bedtime 2 caps (250 mg), oral, Before Meals and At Bedtime 06/14/2006/15/2025 06:42 AM acetaminophen 325 mg tablet Every 6 Hours - PRN 2 tabs (650 mg), oral, Every 6 Hours - PRN, for pain or fever 04/14/20 025 06/05/2025 06:34 AM albuterol sulfate 90 mcg/actuation HFA aerosol inhaler Every 4 Hours - PRN 2 puffs, inhalation, Every 4 Hours - PRN, SOB OR WHEEZING 04/14/20 amiodarone 200 mg tablet Once A Day 1 tab, oral, Once A Day 04/14/20 025 06/05/2025 06:37 AM atorvastatin 80 mg tablet Once A Day 1 tab, oral, Once A Day 04/14/2006/05/2025 06:37 AM digoxin 125 mcg (0.125 mg) tablet Once A Day 1 tab, oral, Once A Day 04/14/2006/05/2025 06:37 AM fentanyl 75 mcg/hr patch 72 hour Once A Day Every 3 Days 1, transdermal, Once A Day Every 3 Days 05/20/2005/29/2025 09:10 AM fentanyl 100 mcg/hr patch 72 hour Once A Day Every 3 Days 1 patch, transdermal, Once A Day Every 3 Days 05/29/2006/04/2025 01:09 PM fluticasone propion-salmetero l 100-50 mcg/dose blister with device Twice A Day 1 inhalation, inhalation, Twice A Day, rinse mouth with water and spit after use, TI for Advair HFA 04/14/2006/05/2025 08:04 PM fluticasone propionate 50 mcg/actuation spray,suspension Once A Day 1 spray both nostrils, nasal, Once A Day 04/14/2006/05/2025 06:37 AM fosfomycin tromethamine 3 gram packet Once A Day on Thu 1 packet, oral, Once A Day on Thu, Mix as directed 04/14/2006/05/2025 06:37 AM furosemide 20 mg tablet Once A Day 1 tab, oral, Once A Day 04/14/2006/05/2025 06:37 AM hydrocodone-aceta minophen 7.5-325 mg tablet Every 12 Hours - PRN 1 tab, oral, Every 12 Hours - PRN, for pain; exempt R52 04/14/2006/04/2025 07:18 PM insulin glargine-yfgn 100 unit/mL (3 mL) insulin pen Once A Day 15 units, subcutaneous, Once A Day 04/14/2005/29/2025 08:45 AM insulin glargine-yfgn 100 unit/mL (3 mL) insulin pen Once A Day 25 units, subcutaneous, Once A Day 05/29/2006/05/2025 06:37 AM insulin lispro 100 unit/mL insulin pen With Meals 5 units, subcutaneous, With Meals 04/14/2005/29/2025 08:45 AM insulin lispro 100 unit/mL insulin pen Three Times A Day Per Sliding Scale, subcutaneous, Three Times A Day, If Blood Sugar is less than 60, call MD.If Blood Sugar is 201 to 250, give 2 Units.If Blood Sugar is 251 to 300, give 4 Units.If Blood Sugar is 301 to 350, give 6 Units.If Blood Sugar is 351 to 400, give 8 Units.If Blood Sugar is greater than 400, give 8 Units., if less 60 or greater than 400 x 3 consecutive times or symptomatic call 04/26/2006/05/2025 05:05 PM insulin lispro 100 unit/mL insulin pen With Meals 10 units, subcutaneous, With Meals 05/29/20 025 06/05/2025 05:05 PM metformin 500 mg tablet Once A Day 1 tab, oral, Once A Day 04/14/2006/05/2025 06:37 AM Miralax (polyethylene glycol 3350) 17 gram/dose powder Once A Day - PRN 17g, oral, Once A Day - PRN, Mix 17gm with 8oz of fluid daily PRN for constipation 04/22/2004/22/2025 07:54 PM nystatin 100,000 unit/gram powder Three Times A Day 1 ana, topical, Three Times A Day 04/14/2006/05/2025 08:04 PM omeprazole 20 mg capsule,delayed release(DR/EC) Once A Day 1 cap, oral, Once A Day 04/14/2006/05/2025 06:37 AM ondansetron HCl 4 mg tablet Three Times A Day - PRN 1 tab, oral, Three Times A Day - PRN, N/V 04/14/20 025 05/26/2025 09:25 PM silver sulfadiazine 1 % cream Twice A Day 1 ana, topical, Twice A Day, Sacrum: Cleanse with ns and gauze, apply silvadene cream to buttock and cover with foam dressing q shift 04/14/20 25 025 06/05/2025 08:04 PM simethicone 125 mg capsule Four Times A Day - PRN 1 -2 caps, oral, Four Times A Day - PRN, May have 1-2 caps after meals and at HS PRN for gas, but no more than 4 caps in 24hrs. 04/22/20 25 025 05/27/2025 05:51 AM Problems Code Type Problem ICD Code Effective Date Status ICD-10 Paroxysmal atrial fibrillation I48.0 11/18 Active ICD-10 shelter (current) use of antibiotics Z79.2 02/02/2025 Active ICD-10 Acute pyelonephritis N10 06/14/2025 Acti ve ICD-10 Encounter for adjust ment and management of vascular access device Z45.2 06/14/2025 Active ICD-10 Spinal stenosis, lum bar region with neurogenic claudication M48.062 12/02/2024 Active ICD-10 Personal history of malignant neoplasm of prostate Z85.46 11/18/2024 Active ICD-10 Personal history of irradiation Z92.3 12/04 Active ICD-10 Neuromuscular dysfun ction of bladder, 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 04/14/2025 Active ICD-10 Other specified disorders of bladder N32.89 12/28/2024 Active ICD-10 Hydronephrosis with ureteral stricture, not elsewhere classified N13.1 12/28/2024 Active ICD-10 Benign prostatic hyp erplasia without lower urinary tract symptoms N40.0 11/18/2024 Active ICD-10 Other artificial ope nings of urinary tract status Z93.6 11/18/2024 Active ICD-10 Presence of urogenital implants Z96.0 11/05 Active ICD-10 Other chronic pain G89.29 12/28/2024 Active 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 03/16/2025 Active ICD-10 Type 2 diabetes mellitus with hyperglycemia E11 .65 11/21/2024 Active ICD-10 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 11/18/2024 Active ICD-10 shelter (current) use of insulin Z79.4 0 11/18/2024 Active ICD-10 shelter (current) use of oral hypoglycemic drugs Z79.84 04/14/2025 Active ICD-10 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 and stage 1 through stage 4 chronic kidney disease, or unspecified chronic kidney disease I13.0 11/18/2024 Activ e ICD-10 Chronic diastolic (congestive) heart failure I5 0.32 12/28/2024 Active ICD-10 Chronic kidney disease, stage 3 unspecified N18 .30 11/18/2024 Active ICD-10 Chronic obstructive pulmonary disease, unspecified J44.9 11/18/2024 Active ICD-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 11/18/2024 Active ICD-10 Alzheimer's disease, unspecified G30.9 Active ICD-10 Dementia in other di seases classified elsewhere, unspecified severity, without behavioral disturbance, psychotic disturbance, mood disturbance, and anxiety F02.80 12/28/2024 Active ICD-10 Other iron deficiency anemias D50.8 2024 Active ICD-10 Mixed hyperlipidemia E78.2 11/18/2024 Acti ve ICD-10 Moderate protein-calorie malnutrition E44.0 11/18/2024 Active ICD-10 Gastro-esophageal re flux disease without esophagitis K21.9 11/18/2024 Active ICD-10 Personal history of urinary (tract) infections Z87.440 12/28/2024 Active Current Allergies and Intolerances Category Substance Type Reaction Severity Begin Date Status Drug Allergy No known drug allergies Allergy Active Vital Signs Height: 68.0 in Date / Time Temperature Pulse (per minute) Respirations (per minute) Systolic BP (mmHg) Diastolic BP (mmHg) O2 Saturation (%) Weight BMI 2024 06:40 AM 98.0 F 75 16 118 52 98.0 2024 05:13 AM 175.6 lbs 26.7 2024 06:52 AM 179.0 lbs 27.2 1 2024 06:51 AM 83 16 122 71 99.0 2024 06:32 AM 96.0 F 2024 06:28 AM 98.0 F 84 16 130 72 98.0 2024 07:09 PM 97.6 F 2024 09:24 AM 97.8 F 79 18 142 68 96.0 2024 08:17 AM 97.9 F 81 18 131 77 98.0 2024 06:36 AM 98.0 F 72 16 129 74 99.0 2024 10:47 AM 98.6 F 16 132 69 98.0 2024 06:29 AM 64 2024 06:31 AM 98.0 F 77 19 135 72 97.0 2024 03:50 PM 97.3 F 70 16 156 66 98.0 2024 06:58 AM 70 15 125 62 97.0 2024 10:44 AM 180.2 lbs 27.4 2024 01:37 PM 180.0 lbs 27.3 7 2024 11:32 AM 179.4 lbs 27.2 7 2024 08:53 AM 176.8 lbs 26.8 8 2024 12:49 PM 176.3 lbs 26.8 Advance Directives Directive Note Full Code Insurance Providers Payer Policy type Group Name Group number Policy ID Address Ph one Medicare Part A Medicare Part A [id number] Phone: Fax: [facility] Medicare Part A [id number] Phone: Fax: Private Private Phone: Fax: Private Interest Private Phone: Fax: Private Co A Private Phone: Fax: Immunizations Vaccine Ware[employer] Work[employer] Date Status Dose Series Complete COVID-19 Vaccine 05/19/2025 Refused COVID-19 Vaccine 11/18/2024 Refused Influenza Vaccine Alfuria Quadrivalent 07/29/2023 Completed Influenza Vaccine 11/17/2024 Refused Pneumococcal Vaccine 07/30/2023 Completed RSV Vaccine Pfizer 07/30/2023 Completed Procedures Not available for this record Results Name Date Time Positive/Negative Value Unit Range Blood Sugar 06/15/2025 06:49 AM 220.0 mg/dL Blood Sugar 06/15/2025 12:49 AM 302.0 mg/dL Blood Sugar 06/05/2025 05:05 PM 203.0 mg/dL Blood Sugar 06/05/2025 11:52 AM 174.0 mg/dL Blood Sugar 06/05/2025 06:39 AM 308.0 mg/dL Blood Sugar 06/04/2025 04:51 PM 262.0 mg/dL Blood Sugar 06/04/2025 12:08 PM 341.0 mg/dL Blood Sugar 06/04/2025 06:29 AM 280.0 mg/dL Blood Sugar 06/03/2025 04:16 PM 245.0 mg/dL Blood Sugar 06/03/2025 11:30 AM 270.0 mg/dL Blood Sugar 06/03/2025 07:31 AM 331.0 mg/dL Blood Sugar 06/02/2025 04:46 PM 176.0 mg/dL Blood Sugar 06/02/2025 12:00 PM 160.0 mg/dL Blood Sugar 06/02/2025 08:16 AM 261.0 mg/dL Blood Sugar 06/01/2025 04:21 PM 186.0 mg/dL Blood Sugar 06/01/2025 11:08 AM 292.0 mg/dL Blood Sugar 06/01/2025 06:39 AM 299.0 mg/dL Blood Sugar 05/31/2025 04:31 PM 250.0 mg/dL Blood Sugar 05/31/2025 11:28 AM 322.0 mg/dL Blood Sugar 05/31/2025 06:31 AM 426.0 mg/dL Blood Sugar 05/30/2025 04:12 PM 340.0 mg/dL Blood Sugar 05/30/2025 11:28 AM 340.0 mg/dL Blood Sugar 05/30/2025 06:32 AM 221.0 mg/dL Blood Sugar 05/29/2025 05:39 PM 187.0 mg/dL Blood Sugar 05/29/2025 01:03 PM 305.0 mg/dL Blood Sugar 05/29/2025 08:22 AM 279.0 mg/dL Blood Sugar 05/28/2025 04:12 PM 290.0 mg/dL Blood Sugar 05/28/2025 11:01 AM 417.0 mg/dL Blood Sugar 05/28/2025 06:59 AM 349.0 mg/dL Blood Sugar 05/27/2025 04:09 PM 258.0 mg/dL Blood Sugar 05/27/2025 11:05 AM 371.0 mg/dL Blood Sugar 05/27/2025 06:30 AM 263.0 mg/dL Blood Sugar 05/26/2025 04:03 PM 383.0 mg/dL Blood Sugar 05/26/2025 11:46 AM 437.0 mg/dL Blood Sugar 05/26/2025 06:37 AM 305.0 mg/dL Blood Sugar 05/25/2025 04:28 PM 351.0 mg/dL Blood Sugar 05/25/2025 11:08 AM 273.0 mg/dL Blood Sugar 05/25/2025 06:33 AM 251.0 mg/dL Blood Sugar 05/24/2025 04:27 PM 408.0 mg/dL Blood Sugar 05/24/2025 01:12 PM 509.0 mg/dL Blood Sugar 05/24/2025 04:11 AM 369.0 mg/dL Blood Sugar 05/23/2025 04:20 PM 257.0 mg/dL Blood Sugar 05/23/2025 12:03 PM 335.0 mg/dL Blood Sugar 05/23/2025 08:10 AM 342.0 mg/dL Blood Sugar 05/22/2025 04:17 PM 356.0 mg/dL Blood Sugar 05/22/2025 02:13 PM 252.0 mg/dL Blood Sugar 05/22/2025 06:51 AM 269.0 mg/dL Blood Sugar 05/21/2025 04:24 PM 320.0 mg/dL Blood Sugar 05/21/2025 11:48 AM 361.0 mg/dL Blood Sugar 05/21/2025 07:54 AM 297.0 mg/dL Blood Sugar 05/20/2025 04:22 PM 252.0 mg/dL Blood Sugar 05/20/2025 11:45 AM 234.0 mg/dL Blood Sugar 05/20/2025 07:17 AM 246.0 mg/dL Blood Sugar 05/19/2025 05:19 PM 269.0 mg/dL Blood Sugar 05/19/2025 11:27 AM 341.0 mg/dL Blood Sugar 05/19/2025 07:39 AM 215.0 mg/dL Blood Sugar 05/18/2025 04:16 PM 306.0 mg/dL Blood Sugar 05/18/2025 11:00 AM 268.0 mg/dL Blood Sugar 05/18/2025 06:30 AM 302.0 mg/dL Blood Sugar 05/17/2025 04:36 PM 310.0 mg/dL Blood Sugar 05/17/2025 11:11 AM 341.0 mg/dL Blood Sugar 05/17/2025 06:48 AM 295.0 mg/dL Blood Sugar 05/16/2025 03:58 PM 308.0 mg/dL Blood Sugar 05/16/2025 11:37 AM 311.0 mg/dL Blood Sugar 05/16/2025 07:06 AM 332.0 mg/dL Blood Sugar 05/15/2025 04:26 PM 224.0 mg/dL Blood Sugar 05/15/2025 12:11 PM 285.0 mg/dL Blood Sugar 05/15/2025 08:45 AM 241.0 mg/dL Blood Sugar 05/14/2025 04:17 PM 268.0 mg/dL Blood Sugar 05/14/2025 11:06 AM 359.0 mg/dL Blood Sugar 05/14/2025 06:27 AM 244.0 mg/dL Blood Sugar 05/13/2025 05:24 PM 352.0 mg/dL Blood Sugar 05/13/2025 11:17 AM 366.0 mg/dL Blood Sugar 05/13/2025 06:36 AM 246.0 mg/dL Blood Sugar 05/12/2025 04:13 PM 263.0 mg/dL Blood Sugar 05/12/2025 11:37 AM 237.0 mg/dL Blood Sugar 05/12/2025 06:57 AM 278.0 mg/dL Blood Sugar 05/11/2025 04:40 PM 220.0 mg/dL Blood Sugar 05/11/2025 11:34 AM 287.0 mg/dL Blood Sugar 05/11/2025 06:30 AM 343.0 mg/dL Blood Sugar 05/10/2025 04:30 PM 182.0 mg/dL Blood Sugar 05/10/2025 11:21 AM 209.0 mg/dL Blood Sugar 05/10/2025 07:18 AM 310.0 mg/dL Blood Sugar 05/09/2025 04:20 PM 332.0 mg/dL Blood Sugar 05/09/2025 11:38 AM 297.0 mg/dL Blood Sugar 05/09/2025 07:23 AM 196.0 mg/dL Blood Sugar 05/08/2025 04:21 PM 267.0 mg/dL Blood Sugar 05/08/2025 11:52 AM 321.0 mg/dL Blood Sugar 05/08/2025 06:46 AM 239.0 mg/dL Blood Sugar 05/07/2025 04:02 PM 193.0 mg/dL Blood Sugar 05/07/2025 12:18 PM 304.0 mg/dL Blood Sugar 05/07/2025 07:28 AM 329.0 mg/dL Blood Sugar 05/06/2025 04:55 PM 317.0 mg/dL Blood Sugar 05/06/2025 02:03 PM 369.0 mg/dL Blood Sugar 05/06/2025 09:14 AM 268.0 mg/dL Blood Sugar 05/05/2025 05:20 PM 256.0 mg/dL Blood Sugar 05/05/2025 10:46 AM 336.0 mg/dL Blood Sugar 05/05/2025 08:04 AM 260.0 mg/dL Blood Sugar 05/04/2025 04:20 PM 182.0 mg/dL Blood Sugar 05/04/2025 11:01 AM 240.0 mg/dL Blood Sugar 05/04/2025 06:40 AM 278.0 mg/dL Blood Sugar 05/03/2025 04:20 PM 214.0 mg/dL Blood Sugar 05/03/2025 12:53 PM 308.0 mg/dL Blood Sugar 05/03/2025 06:50 AM 269.0 mg/dL Blood Sugar 05/02/2025 04:09 PM 221.0 mg/dL Blood Sugar 05/02/2025 11:18 AM 292.0 mg/dL Blood Sugar 05/02/2025 06:23 AM 218.0 mg/dL Blood Sugar 05/01/2025 05:31 PM 254.0 mg/dL Blood Sugar 05/01/2025 12:34 PM 306.0 mg/dL Blood Sugar 05/01/2025 08:57 AM 421.0 mg/dL Blood Sugar 04/30/2025 04:24 PM 303.0 mg/dL Blood Sugar 04/30/2025 11:09 AM 399.0 mg/dL Blood Sugar 04/30/2025 06:17 AM 417.0 mg/dL Blood Sugar 04/29/2025 05:11 PM 244.0 mg/dL Blood Sugar 04/29/2025 11:34 AM 359.0 mg/dL Blood Sugar 04/29/2025 06:32 AM 355.0 mg/dL Blood Sugar 04/28/2025 04:24 PM 395.0 mg/dL Blood Sugar 04/28/2025 11:46 AM 491.0 mg/dL Blood Sugar 04/28/2025 06:54 AM 463.0 mg/dL Blood Sugar 04/27/2025 04:40 PM 406.0 mg/dL Blood Sugar 04/27/2025 11:14 AM 317.0 mg/dL Blood Sugar 04/27/2025 06:51 AM 263.0 mg/dL Blood Sugar 04/26/2025 04:21 PM 329.0 mg/dL Blood Sugar 04/26/2025 11:19 AM 274.0 mg/dL Blood Sugar 04/26/2025 07:04 AM 253.0 mg/dL Blood Sugar 04/25/2025 04:54 PM 337.0 mg/dL Blood Sugar 04/25/2025 12:55 PM 316.0 mg/dL Blood Sugar 04/25/2025 07:55 AM 317.0 mg/dL Blood Sugar 04/24/2025 04:57 PM 377.0 mg/dL Blood Sugar 04/24/2025 11:35 AM 328.0 mg/dL Blood Sugar 04/24/2025 06:29 AM 411.0 mg/dL Blood Sugar 04/23/2025 05:40 PM 285.0 mg/dL Blood Sugar 04/23/2025 11:13 AM 299.0 mg/dL Blood Sugar 04/23/2025 07:54 AM 328.0 mg/dL Blood Sugar 04/22/2025 05:00 PM 267.0 mg/dL Blood Sugar 04/22/2025 12:25 PM 393.0 mg/dL Blood Sugar 04/22/2025 07:59 AM 226.0 mg/dL Blood Sugar 04/21/2025 05:05 PM 297.0 mg/dL Blood Sugar 04/21/2025 12:16 PM 326.0 mg/dL Blood Sugar 04/21/2025 07:32 AM 226.0 mg/dL Blood Sugar 04/20/2025 04:02 PM 252.0 mg/dL Blood Sugar 04/20/2025 11:06 AM 328.0 mg/dL Blood Sugar 04/20/2025 06:40 AM 258.0 mg/dL Blood Sugar 04/19/2025 04:09 PM 291.0 mg/dL Blood Sugar 04/19/2025 11:15 AM 329.0 mg/dL Blood Sugar 04/19/2025 06:52 AM 310.0 mg/dL Blood Sugar 04/18/2025 04:11 PM 387.0 mg/dL Blood Sugar 04/18/2025 11:50 AM 402.0 mg/dL Blood Sugar 04/18/2025 06:34 AM 311.0 mg/dL Blood Sugar 04/17/2025 04:31 PM 324.0 mg/dL Blood Sugar 04/17/2025 10:51 AM 383.0 mg/dL Blood Sugar 04/17/2025 07:39 AM 356.0 mg/dL Blood Sugar 04/16/2025 03:59 PM 350.0 mg/dL Blood Sugar 04/16/2025 01:09 PM 341.0 mg/dL Blood Sugar 04/16/2025 06:43 AM 327.0 mg/dL Blood Sugar 04/15/2025 04:00 PM 316.0 mg/dL Blood Sugar 04/15/2025 01:23 PM 392.0 mg/dL Blood Sugar 04/15/2025 06:43 AM 422.0 mg/dL Blood Sugar 04/15/2025 12:48 AM 212.0 mg/dL Blood Sugar 04/10/2025 12:44 PM 293.0 mg/dL Blood Sugar 04/10/2025 07:05 AM 195.0 mg/dL Blood Sugar 04/09/2025 09:04 PM 202.0 mg/dL Blood Sugar 04/09/2025 04:04 PM 231.0 mg/dL Blood Sugar 04/09/2025 11:06 AM 246.0 mg/dL Blood Sugar 04/09/2025 05:42 AM 213.0 mg/dL Blood Sugar 04/08/2025 08:46 PM 175.0 mg/dL Blood Sugar 04/08/2025 05:37 PM 177.0 mg/dL Blood Sugar 04/08/2025 11:55 AM 273.0 mg/dL Blood Sugar 04/08/2025 05:53 AM 243.0 mg/dL Blood Sugar 04/07/2025 08:26 PM 257.0 mg/dL Blood Sugar 04/07/2025 05:19 PM 226.0 mg/dL Blood Sugar 04/07/2025 05:13 PM 226.0 mg/dL Blood Sugar 04/07/2025 11:50 AM 229.0 mg/dL Blood Sugar 04/07/2025 11:47 AM 229.0 mg/dL Blood Sugar 04/07/2025 08:34 AM 182.0 mg/dL Blood Sugar 04/07/2025 08:27 AM 182.0 mg/dL Blood Sugar 04/06/2025 07:21 PM 230.0 mg/dL Blood Sugar 04/06/2025 04:04 PM 278.0 mg/dL Blood Sugar 04/06/2025 11:11 AM 353.0 mg/dL Blood Sugar 04/06/2025 06:44 AM 267.0 mg/dL Blood Sugar 04/05/2025 07:04 PM 245.0 mg/dL Blood Sugar 04/05/2025 04:09 PM 237.0 mg/dL Blood Sugar 04/05/2025 10:55 AM 302.0 mg/dL Blood Sugar 04/05/2025 06:33 AM 292.0 mg/dL Blood Sugar 04/04/2025 07:09 PM 279.0 mg/dL Blood Sugar 04/04/2025 04:18 PM 239.0 mg/dL Blood Sugar 04/04/2025 11:33 AM 357.0 mg/dL Blood Sugar 04/04/2025 06:29 AM 250.0 mg/dL Blood Sugar 04/03/2025 07:19 PM 250.0 mg/dL Blood Sugar 04/03/2025 05:42 PM 271.0 mg/dL Blood Sugar 04/03/2025 05:05 PM 271.0 mg/dL Blood Sugar 04/03/2025 12:35 PM 318.0 mg/dL Blood Sugar 04/03/2025 08:19 AM 215.0 mg/dL Blood Sugar 04/02/2025 09:03 PM 374.0 mg/dL Blood Sugar 04/02/2025 03:34 PM 283.0 mg/dL Blood Sugar 04/02/2025 11:09 AM 261.0 mg/dL Blood Sugar 04/02/2025 06:37 AM 250.0 mg/dL Blood Sugar 04/01/2025 08:00 PM 278.0 mg/dL Blood Sugar 04/01/2025 04:36 PM 262.0 mg/dL Blood Sugar 04/01/2025 04:15 PM 262.0 mg/dL Blood Sugar 04/01/2025 11:31 AM 237.0 mg/dL Blood Sugar 04/01/2025 06:41 AM 231.0 mg/dL Blood Sugar 03/31/2025 08:13 PM 389.0 mg/dL Blood Sugar 03/31/2025 04:26 PM 337.0 mg/dL Blood Sugar 03/31/2025 06:50 AM 220.0 mg/dL Blood Sugar 03/30/2025 08:32 PM 241.0 mg/dL Blood Sugar 03/30/2025 04:35 PM 283.0 mg/dL Blood Sugar 03/30/2025 11:32 AM 281.0 mg/dL Blood Sugar 03/30/2025 07:13 AM 231.0 mg/dL Blood Sugar 03/29/2025 07:33 PM 332.0 mg/dL Blood Sugar 03/29/2025 10:16 AM 253.0 mg/dL Blood Sugar 03/29/2025 06:39 AM 326.0 mg/dL Blood Sugar 03/29/2025 12:38 AM 267.0 mg/dL Blood Sugar 03/28/2025 06:52 PM 234.0 mg/dL Blood Sugar 03/28/2025 05:07 PM 264.0 mg/dL Blood Sugar 03/28/2025 12:28 PM 258.0 mg/dL Blood Sugar 03/28/2025 08:11 AM 328.0 mg/dL Blood Sugar 03/28/2025 07:45 AM 328.0 mg/dL Blood Sugar 03/27/2025 06:40 PM 263.0 mg/dL Blood Sugar 03/27/2025 04:10 PM 210.0 mg/dL Blood Sugar 03/27/2025 12:33 PM 286.0 mg/dL Blood Sugar 03/27/2025 07:18 AM 312.0 mg/dL Blood Sugar 03/26/2025 07:07 PM 281.0 mg/dL Blood Sugar 03/26/2025 05:15 PM 287.0 mg/dL Blood Sugar 03/26/2025 03:21 PM 287.0 mg/dL Blood Sugar 03/26/2025 10:56 AM 331.0 mg/dL Blood Sugar 03/26/2025 08:56 AM 341.0 mg/dL Blood Sugar 03/26/2025 05:39 AM 341.0 mg/dL Blood Sugar 03/25/2025 09:04 PM 194.0 mg/dL Blood Sugar 03/25/2025 04:22 PM 203.0 mg/dL Blood Sugar 03/25/2025 11:12 AM 389.0 mg/dL Blood Sugar 03/25/2025 08:02 AM 261.0 mg/dL Blood Sugar 03/25/2025 07:15 AM 251.0 mg/dL Blood Sugar 03/24/2025 04:56 PM 287.0 mg/dL Blood Sugar 03/24/2025 03:53 PM 271.0 mg/dL Blood Sugar 03/24/2025 11:04 AM 374.0 mg/dL Blood Sugar 03/24/2025 10:39 AM 374.0 mg/dL Blood Sugar 03/24/2025 06:48 AM 165.0 mg/dL Blood Sugar 03/23/2025 07:01 PM 262.0 mg/dL Blood Sugar 03/23/2025 03:47 PM 167.0 mg/dL Blood Sugar 03/23/2025 11:28 AM 220.0 mg/dL Blood Sugar 03/23/2025 06:24 AM 169.0 mg/dL Blood Sugar 03/23/2025 01:02 AM 224.0 mg/dL Blood Sugar 03/22/2025 03:29 PM 186.0 mg/dL Blood Sugar 03/22/2025 10:28 AM 272.0 mg/dL Blood Sugar 03/22/2025 06:10 AM 212.0 mg/dL Blood Sugar 03/21/2025 07:45 PM 236.0 mg/dL Blood Sugar 03/21/2025 03:54 PM 234.0 mg/dL Blood Sugar 03/21/2025 10:38 AM 249.0 mg/dL Blood Sugar 03/21/2025 07:15 AM 172.0 mg/dL Blood Sugar 03/21/2025 04:36 AM 168.0 mg/dL Blood Sugar 03/20/2025 05:17 PM 242.0 mg/dL Blood Sugar 03/20/2025 04:19 PM 242.0 mg/dL Blood Sugar 03/20/2025 12:22 PM 241.0 mg/dL Blood Sugar 03/20/2025 12:17 PM 241.0 mg/dL Blood Sugar 03/20/2025 07:07 AM 182.0 mg/dL Blood Sugar 03/19/2025 11:28 PM 226.0 mg/dL Blood Sugar 03/19/2025 05:24 PM 267.0 mg/dL Blood Sugar 03/19/2025 11:04 AM 210.0 mg/dL Blood Sugar 03/19/2025 11:04 AM 210.0 mg/dL Blood Sugar 03/19/2025 08:57 AM 181.0 mg/dL Blood Sugar 03/19/2025 06:45 AM 181.0 mg/dL Blood Sugar 03/18/2025 09:40 PM 167.0 mg/dL Blood Sugar 03/18/2025 04:26 PM 253.0 mg/dL Blood Sugar 03/18/2025 10:53 AM 250.0 mg/dL Blood Sugar 03/18/2025 08:15 AM 239.0 mg/dL Blood Sugar 03/18/2025 06:46 AM 239.0 mg/dL Blood Sugar 03/18/2025 01:07 AM 315.0 mg/dL Blood Sugar 03/17/2025 05:38 PM 235.0 mg/dL Blood Sugar 03/17/2025 12:21 PM 218.0 mg/dL Goals Goal Date ADL approaches will meet the resident?s needs to enhance ability, maintain abilities, or provide quality. 08/30/2025 Will have positive responses to activities of my choice weekly through next assessment. 08/30/2025 Raphael will remain safe and happy withi n the facility. 08/30/2025 Comfort needs will be met thru 120 days from update/last review 08/30/2025 Raphael will have no in faci lity falls through next lookback period/ review. 08/30/2025 Advanced directives will be honored as outlined by patient/family on daily basis thru 120days from update/last review 08/30/2025 Will adjust to change in rel ationships and accept support from staff for 120days from update/last review AND/OR Will be at ease interacting with others, expressing preferences daily for 120days from update/last review 08/30/2025 Will have a BM at least ever y 3 days for 120 days since update/last review AND/OR will not experience any complications r/t to colostomy for 120 days from update/ last review AND/OR Will not experience any GI complications for 120 days since update/last review AND/OR Will remain clean, dry between incontinent episodes thru 120days from update/last review 08/30/2025 Raphael will maintain or improve nutriti onal status through next review 08/30/2025 Resident will return to pre-delirium sta tus. 08/30/2025 Resident's skin will remain intact. 08/06 Restorative program to maint ain and improve PROM / AROM to assist with transfers and ADLs. 08/30/2025 Social History Subject Status Smoking status Never smoker Encounters Admission Date Discharge Date Description MRN Visit Count 11/18/2024 13:03 LTPAC Admission [id number]
--- OUTSIDE RECORDS SUMMARY | 2025-06-20 00:54 | XMS_ITS | CCD ---
Author Name Interface, [id number] [address] Organization [facility] [place] [address] Reason for Visit Social History Date Name Value 04/12/2025 Sex Male
--- OUTSIDE RECORDS SUMMARY | 2025-06-20 00:56 | XMS_ITS | Continuity of Care Document ---
Author Organization [employer] ([facility]) Address [address] [place] [id number] Insurance Providers Payer Plan Claims Address Claims Phone Policy Number Group Number Relation Employer Guarantor Name Guarantor Guarantor Address Guarantor Phone MEDICA RE MEDIC ARE tel:[phone] [employer] RE ADVANT AGE WE[employer] ARE MEDIC ARE ADVAN TAGE [address] [address], [place] [address] tel:[phone] [id number] TRICAR E TRICA RE [address] [address] [address] [id number] Problems Condition ICD9 code ICD10 code SNOMED code Start Date End Date S tatus Paroxysmal atrial fibrillation I48.0 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 06/14/2024 Active [...] obstructive pulmonary disease, unspecified J44.9 06/02/2023 Active care home (current) use 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 Z79.51 05/27/2023 [...] with diabetic neuropathy, unspecified E11.40 06/02/2023 Active care home (current) use of insulin Z79.4 05/27/2023 Active care home (current) use of oral hypoglycemic drugs [...] 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 11/18/2024 Active care home (current) use of insulin Z79.4 11/18/2024 Active care home (current) use of oral hypoglycemic drugs Z79.84 11/18/2024 Active Hypertensive heart and chronic kidney disease with heart failure and stage 1 through stage 4 chronic kidney disease, or unspecified chronic kidney disease I13.0 11/18/2024 Active Heart failure, unspecified I50.9 11/18/2024 Active Chronic kidney disease, stage 3 unspecified N18.30 11/18/2024 Activ e Chronic obstructive pulmonary disease, unspecified J44.9 11/18/2024 Active care home (current) use 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 Z79.51 11/18/2024 [...] Active Anxiety disorder, unspecified F41.9 12/28/2024 Active care home (current) use of antibiotics Z79.2 02/02/2025 Active Neuromuscular dysfunction of bladder, 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 04/14/2025 A ctive care home (current) use of opiate analgesic Z79.891 03/16/2025 Activ e care home (current) use of oral hypoglycemic drugs Z79.84 04/14/2025 Active Acute pyelonephritis N10 06/14/2025 Active Encounter for adjustment and management of vascular access device Z45.2 06/14/2025 Ac tive Results Test Result Date/Time Value / Unit Interp. Refere nce Range Blood chemistry[[id number]] Glucose [Mass/volume] in Serum or Plasma [2345-7] 06/19/2025 04:56 PM 234 mg/dL N Blood chemistry[[id number]] Glucose [Mass/volume] in Serum or Plasma [2345-7] 06/19/2025 09:41 AM 143 mg/dL N Blood chemistry[[id number]] Glucose [Mass/volume] in Serum or Plasma [2345-7] 06/19/2025 12:22 PM 248 mg/dL N Blood chemistry[[id number]] Glucose [Mass/volume] in Serum or Plasma [2345-7] 06/18/2025 11:32 AM 169 mg/dL N Blood chemistry[[id number]] Glucose [Mass/volume] in Serum or Plasma [2345-7] 06/18/2025 08:04 AM 209 mg/dL N Blood chemistry[[id number]] Glucose [Mass/volume] in Serum or Plasma [2345-7] 06/18/2025 12:22 PM 135 mg/dL N Blood chemistry[[id number]] Glucose [Mass/volume] in Serum or Plasma [2345-7] 06/17/2025 12:32 PM 216 mg/dL N Blood chemistry[[id number]] Glucose [Mass/volume] in Serum or Plasma [2345-7] 06/17/2025 10:27 AM 139 mg/dL N Blood chemistry[[id number]] Glucose [Mass/volume] in Serum or Plasma [2345-7] 06/17/2025 05:48 PM 213 mg/dL N Blood chemistry[[id number]] Glucose [Mass/volume] in Serum or Plasma [2345-7] 06/17/2025 01:42 PM 170 mg/dL N Blood chemistry[[id number]] Glucose [Mass/volume] in Serum or Plasma [2345-7] 06/16/2025 12:39 PM 178 mg/dL N Blood chemistry[[id number]] Glucose [Mass/volume] in Serum or Plasma [2345-7] 06/16/2025 04:07 PM 220 mg/dL N Blood chemistry[[id number]] Glucose [Mass/volume] in Serum or Plasma [2345-7] 06/16/2025 08:43 AM 189 mg/dL N Blood chemistry[[id number]] Glucose [Mass/volume] in Serum or Plasma [2345-7] 06/16/2025 11:39 AM 194 mg/dL N Blood chemistry[[id number]] Glucose [Mass/volume] in Serum or Plasma [2345-7] 06/15/2025 11:18 AM 192 mg/dL N Blood chemistry[[id number]] Glucose [Mass/volume] in Serum or Plasma [2345-7] 06/15/2025 04:33 PM 204 mg/dL N Blood chemistry[[id number]] Glucose [Mass/volume] in Serum or Plasma [2345-7] 06/15/2025 09:13 AM 202 mg/dL N Blood chemistry[[id number]] Glucose [Mass/volume] in Serum or Plasma [2345-7] 06/15/2025 11:49 AM 220 mg/dL N Blood chemistry[[id number]] Glucose [Mass/volume] in Serum or Plasma [2345-7] 06/15/2025 05:49 PM 302 mg/dL N Blood chemistry[[id number]] Glucose [Mass/volume] in Serum or Plasma [2345-7] 06/05/2025 04:52 PM 174 mg/dL N Blood chemistry[[id number]] Glucose [Mass/volume] in Serum or Plasma [2345-7] 06/05/2025 11:39 AM 308 mg/dL N Blood chemistry[[id number]] Glucose [Mass/volume] in Serum or Plasma [2345-7] 06/05/2025 10:05 AM 203 mg/dL N Blood chemistry[[id number]] Glucose [Mass/volume] in Serum or Plasma [2345-7] 06/04/2025 05:08 PM 341 mg/dL N Blood chemistry[[id number]] Glucose [Mass/volume] in Serum or Plasma [2345-7] 06/04/2025 11:29 AM 280 mg/dL N Blood chemistry[[id number]] Glucose [Mass/volume] in Serum or Plasma [2345-7] 06/04/2025 09:51 AM 262 mg/dL N Blood chemistry[[id number]] Glucose [Mass/volume] in Serum or Plasma [2345-7] 06/03/2025 04:30 PM 270 mg/dL N Blood chemistry[[id number]] Glucose [Mass/volume] in Serum or Plasma [2345-7] 06/03/2025 12:31 PM 331 mg/dL N Blood chemistry[[id number]] Glucose [Mass/volume] in Serum or Plasma [2345-7] 06/03/2025 09:16 AM 245 mg/dL N Blood chemistry[[id number]] Glucose [Mass/volume] in Serum or Plasma [2345-7] 06/02/2025 05:00 PM 160 mg/dL N Blood chemistry[[id number]] Glucose [Mass/volume] in Serum or Plasma [2345-7] 06/02/2025 01:16 PM 261 mg/dL N Blood chemistry[[id number]] Glucose [Mass/volume] in Serum or Plasma [2345-7] 06/02/2025 09:46 AM 176 mg/dL N Blood chemistry[[id number]] Glucose [Mass/volume] in Serum or Plasma [2345-7] 06/01/2025 04:08 PM 292 mg/dL N Blood chemistry[[id number]] Glucose [Mass/volume] in Serum or Plasma [2345-7] 06/01/2025 11:39 AM 299 mg/dL N Blood chemistry[[id number]] Glucose [Mass/volume] in Serum or Plasma [2345-7] 06/01/2025 09:21 AM 186 mg/dL N Blood chemistry[[id number]] Glucose [Mass/volume] in Serum or Plasma [2345-7] 05/31/2025 04:28 PM 322 mg/dL N Blood chemistry[[id number]] Glucose [Mass/volume] in Serum or Plasma [2345-7] 05/31/2025 11:31 AM 426 mg/dL N Blood chemistry[[id number]] Glucose [Mass/volume] in Serum or Plasma [2345-7] 05/31/2025 09:31 AM 250 mg/dL N Blood chemistry[[id number]] Glucose [Mass/volume] in Serum or Plasma [2345-7] 05/30/2025 04:28 PM 340 mg/dL N Blood chemistry[[id number]] Glucose [Mass/volume] in Serum or Plasma [2345-7] 05/30/2025 11:32 AM 221 mg/dL N Blood chemistry[[id number]] Glucose [Mass/volume] in Serum or Plasma [2345-7] 05/30/2025 09:12 AM 340 mg/dL N Blood chemistry[[id number]] Glucose [Mass/volume] in Serum or Plasma [2345-7] 05/29/2025 01:22 PM 279 mg/dL N Blood chemistry[[id number]] Glucose [Mass/volume] in Serum or Plasma [2345-7] 05/29/2025 10:39 AM 187 mg/dL N Blood chemistry[[id number]] Glucose [Mass/volume] in Serum or Plasma [2345-7] 05/29/2025 06:03 AM 305 mg/dL N Blood chemistry[[id number]] Glucose [Mass/volume] in Serum or Plasma [2345-7] 05/28/2025 04:01 PM 417 mg/dL N Blood chemistry[[id number]] Glucose [Mass/volume] in Serum or Plasma [2345-7] 05/28/2025 11:59 AM 349 mg/dL N Blood chemistry[[id number]] Glucose [Mass/volume] in Serum or Plasma [2345-7] 05/28/2025 09:12 AM 290 mg/dL N Blood chemistry[[id number]] Glucose [Mass/volume] in Serum or Plasma [2345-7] 05/27/2025 04:05 PM 371 mg/dL N Blood chemistry[[id number]] Glucose [Mass/volume] in Serum or Plasma [2345-7] 05/27/2025 11:30 AM 263 mg/dL N Blood chemistry[[id number]] Glucose [Mass/volume] in Serum or Plasma [2345-7] 05/27/2025 09:09 AM 258 mg/dL N Blood chemistry[[id number]] Glucose [Mass/volume] in Serum or Plasma [2345-7] 05/26/2025 04:46 PM 437 mg/dL N Blood chemistry[[id number]] Glucose [Mass/volume] in Serum or Plasma [2345-7] 05/26/2025 11:37 AM 305 mg/dL N Blood chemistry[[id number]] Glucose [Mass/volume] in Serum or Plasma [2345-7] 05/26/2025 09:03 AM 383 mg/dL N Blood chemistry[[id number]] Glucose [Mass/volume] in Serum or Plasma [2345-7] 05/25/2025 04:08 PM 273 mg/dL N Blood chemistry[[id number]] Glucose [Mass/volume] in Serum or Plasma [2345-7] 05/25/2025 11:33 AM 251 mg/dL N Blood chemistry[[id number]] Glucose [Mass/volume] in Serum or Plasma [2345-7] 05/25/2025 09:28 AM 351 mg/dL N Blood chemistry[[id number]] Glucose [Mass/volume] in Serum or Plasma [2345-7] 05/24/2025 09:27 AM 408 mg/dL N Blood chemistry[[id number]] Glucose [Mass/volume] in Serum or Plasma [2345-7] 05/24/2025 09:11 AM 369 mg/dL N Blood chemistry[[id number]] Glucose [Mass/volume] in Serum or Plasma [2345-7] 05/24/2025 06:12 AM 509 mg/dL N Blood chemistry[[id number]] Glucose [Mass/volume] in Serum or Plasma [2345-7] 05/23/2025 05:03 PM 335 mg/dL N Blood chemistry[[id number]] Glucose [Mass/volume] in Serum or Plasma [2345-7] 05/23/2025 01:10 PM 342 mg/dL N Blood chemistry[[id number]] Glucose [Mass/volume] in Serum or Plasma [2345-7] 05/23/2025 09:20 AM 257 mg/dL N Blood chemistry[[id number]] Glucose [Mass/volume] in Serum or Plasma [2345-7] 05/22/2025 11:51 AM 269 mg/dL N Blood chemistry[[id number]] Glucose [Mass/volume] in Serum or Plasma [2345-7] 05/22/2025 09:17 AM 356 mg/dL N Blood chemistry[[id number]] Glucose [Mass/volume] in Serum or Plasma [2345-7] 05/22/2025 07:13 AM 252 mg/dL N Blood chemistry[[id number]] Glucose [Mass/volume] in Serum or Plasma [2345-7] 05/21/2025 04:48 PM 361 mg/dL N Blood chemistry[[id number]] Glucose [Mass/volume] in Serum or Plasma [2345-7] 05/21/2025 12:54 PM 297 mg/dL N Blood chemistry[[id number]] Glucose [Mass/volume] in Serum or Plasma [2345-7] 05/21/2025 09:24 AM 320 mg/dL N Blood chemistry[[id number]] Glucose [Mass/volume] in Serum or Plasma [2345-7] 05/20/2025 04:45 PM 234 mg/dL N Blood chemistry[[id number]] Glucose [Mass/volume] in Serum or Plasma [2345-7] 05/20/2025 12:17 PM 246 mg/dL N Blood chemistry[[id number]] Glucose [Mass/volume] in Serum or Plasma [2345-7] 05/20/2025 09:22 AM 252 mg/dL N Blood chemistry[[id number]] Glucose [Mass/volume] in Serum or Plasma [2345-7] 05/19/2025 04:27 PM 341 mg/dL N Blood chemistry[[id number]] Glucose [Mass/volume] in Serum or Plasma [2345-7] 05/19/2025 12:39 PM 215 mg/dL N Blood chemistry[[id number]] Glucose [Mass/volume] in Serum or Plasma [2345-7] 05/19/2025 10:19 AM 269 mg/dL N Blood chemistry[[id number]] Glucose [Mass/volume] in Serum or Plasma [2345-7] 05/18/2025 04:00 PM 268 mg/dL N Blood chemistry[[id number]] Glucose [Mass/volume] in Serum or Plasma [2345-7] 05/18/2025 11:30 AM 302 mg/dL N Blood chemistry[[id number]] Glucose [Mass/volume] in Serum or Plasma [2345-7] 05/18/2025 09:16 AM 306 mg/dL N Blood chemistry[[id number]] Glucose [Mass/volume] in Serum or Plasma [2345-7] 05/17/2025 04:11 PM 341 mg/dL N Blood chemistry[[id number]] Glucose [Mass/volume] in Serum or Plasma [2345-7] 05/17/2025 11:48 AM 295 mg/dL N Blood chemistry[[id number]] Glucose [Mass/volume] in Serum or Plasma [2345-7] 05/17/2025 09:36 AM 310 mg/dL N Blood chemistry[[id number]] Glucose [Mass/volume] in Serum or Plasma [2345-7] 05/16/2025 04:37 PM 311 mg/dL N Blood chemistry[[id number]] Glucose [Mass/volume] in Serum or Plasma [2345-7] 05/16/2025 12:06 PM 332 mg/dL N Blood chemistry[[id number]] Glucose [Mass/volume] in Serum or Plasma [2345-7] 05/16/2025 08:58 AM 308 mg/dL N Blood chemistry[[id number]] Glucose [Mass/volume] in Serum or Plasma [2345-7] 05/15/2025 05:11 PM 285 mg/dL N Blood chemistry[[id number]] Glucose [Mass/volume] in Serum or Plasma [2345-7] 05/15/2025 01:45 PM 241 mg/dL N Blood chemistry[[id number]] Glucose [Mass/volume] in Serum or Plasma [2345-7] 05/15/2025 09:26 AM 224 mg/dL N Blood chemistry[[id number]] Glucose [Mass/volume] in Serum or Plasma [2345-7] 05/14/2025 04:06 PM 359 mg/dL N Blood chemistry[[id number]] Glucose [Mass/volume] in Serum or Plasma [2345-7] 05/14/2025 11:27 AM 244 mg/dL N Blood chemistry[[id number]] Glucose [Mass/volume] in Serum or Plasma [2345-7] 05/14/2025 09:17 AM 268 mg/dL N Blood chemistry[[id number]] Glucose [Mass/volume] in Serum or Plasma [2345-7] 05/13/2025 04:17 PM 366 mg/dL N Blood chemistry[[id number]] Glucose [Mass/volume] in Serum or Plasma [2345-7] 05/13/2025 11:36 AM 246 mg/dL N Blood chemistry[[id number]] Glucose [Mass/volume] in Serum or Plasma [2345-7] 05/13/2025 10:24 AM 352 mg/dL N Blood chemistry[[id number]] Glucose [Mass/volume] in Serum or Plasma [2345-7] 05/12/2025 04:37 PM 237 mg/dL N Blood chemistry[[id number]] Glucose [Mass/volume] in Serum or Plasma [2345-7] 05/12/2025 11:57 AM 278 mg/dL N Blood chemistry[[id number]] Glucose [Mass/volume] in Serum or Plasma [2345-7] 05/12/2025 09:13 AM 263 mg/dL N Blood chemistry[[id number]] Glucose [Mass/volume] in Serum or Plasma [2345-7] 05/11/2025 04:34 PM 287 mg/dL N Blood chemistry[[id number]] Glucose [Mass/volume] in Serum or Plasma [2345-7] 05/11/2025 11:30 AM 343 mg/dL N Blood chemistry[[id number]] Glucose [Mass/volume] in Serum or Plasma [2345-7] 05/11/2025 09:40 AM 220 mg/dL N Blood chemistry[[id number]] Glucose [Mass/volume] in Serum or Plasma [2345-7] 05/10/2025 04:21 PM 209 mg/dL N Blood chemistry[[id number]] Glucose [Mass/volume] in Serum or Plasma [2345-7] 05/10/2025 12:18 PM 310 mg/dL N Blood chemistry[[id number]] Glucose [Mass/volume] in Serum or Plasma [2345-7] 05/10/2025 09:30 AM 182 mg/dL N Blood chemistry[[id number]] Glucose [Mass/volume] in Serum or Plasma [2345-7] 05/09/2025 04:38 PM 297 mg/dL N Blood chemistry[[id number]] Glucose [Mass/volume] in Serum or Plasma [2345-7] 05/09/2025 12:23 PM 196 mg/dL N Blood chemistry[[id number]] Glucose [Mass/volume] in Serum or Plasma [2345-7] 05/09/2025 09:20 AM 332 mg/dL N Blood chemistry[[id number]] Glucose [Mass/volume] in Serum or Plasma [2345-7] 05/08/2025 04:52 PM 321 mg/dL N Blood chemistry[[id number]] Glucose [Mass/volume] in Serum or Plasma [2345-7] 05/08/2025 11:46 AM 239 mg/dL N Blood chemistry[[id number]] Glucose [Mass/volume] in Serum or Plasma [2345-7] 05/08/2025 09:21 AM 267 mg/dL N Blood chemistry[[id number]] Glucose [Mass/volume] in Serum or Plasma [2345-7] 05/07/2025 05:18 PM 304 mg/dL N Blood chemistry[[id number]] Glucose [Mass/volume] in Serum or Plasma [2345-7] 05/07/2025 12:28 PM 329 mg/dL N Blood chemistry[[id number]] Glucose [Mass/volume] in Serum or Plasma [2345-7] 05/07/2025 09:02 AM 193 mg/dL N Blood chemistry[[id number]] Glucose [Mass/volume] in Serum or Plasma [2345-7] 05/06/2025 02:14 PM 268 mg/dL N Blood chemistry[[id number]] Glucose [Mass/volume] in Serum or Plasma [2345-7] 05/06/2025 09:55 AM 317 mg/dL N Blood chemistry[[id number]] Glucose [Mass/volume] in Serum or Plasma [2345-7] 05/06/2025 07:03 AM 369 mg/dL N Blood chemistry[[id number]] Glucose [Mass/volume] in Serum or Plasma [2345-7] 05/05/2025 03:46 PM 336 mg/dL N Blood chemistry[[id number]] Glucose [Mass/volume] in Serum or Plasma [2345-7] 05/05/2025 01:04 PM 260 mg/dL N Blood chemistry[[id number]] Glucose [Mass/volume] in Serum or Plasma [2345-7] 05/05/2025 10:20 AM 256 mg/dL N Blood chemistry[[id number]] Glucose [Mass/volume] in Serum or Plasma [2345-7] 05/04/2025 04:01 PM 240 mg/dL N Blood chemistry[[id number]] Glucose [Mass/volume] in Serum or Plasma [2345-7] 05/04/2025 11:40 AM 278 mg/dL N Blood chemistry[[id number]] Glucose [Mass/volume] in Serum or Plasma [2345-7] 05/04/2025 09:20 AM 182 mg/dL N Blood chemistry[[id number]] Glucose [Mass/volume] in Serum or Plasma [2345-7] 05/03/2025 05:53 PM 308 mg/dL N Blood chemistry[[id number]] Glucose [Mass/volume] in Serum or Plasma [2345-7] 05/03/2025 11:50 AM 269 mg/dL N Blood chemistry[[id number]] Glucose [Mass/volume] in Serum or Plasma [2345-7] 05/03/2025 09:20 AM 214 mg/dL N Blood chemistry[[id number]] Glucose [Mass/volume] in Serum or Plasma [2345-7] 05/02/2025 04:18 PM 292 mg/dL N Blood chemistry[[id number]] Glucose [Mass/volume] in Serum or Plasma [2345-7] 05/02/2025 11:23 AM 218 mg/dL N Blood chemistry[[id number]] Glucose [Mass/volume] in Serum or Plasma [2345-7] 05/02/2025 09:09 AM 221 mg/dL N Blood chemistry[[id number]] Glucose [Mass/volume] in Serum or Plasma [2345-7] 05/01/2025 05:34 PM 306 mg/dL N Blood chemistry[[id number]] Glucose [Mass/volume] in Serum or Plasma [2345-7] 05/01/2025 01:57 PM 421 mg/dL N Blood chemistry[[id number]] Glucose [Mass/volume] in Serum or Plasma [2345-7] 05/01/2025 10:31 AM 254 mg/dL N Blood chemistry[[id number]] Glucose [Mass/volume] in Serum or Plasma [2345-7] 04/30/2025 04:09 PM 399 mg/dL N Blood chemistry[[id number]] Glucose [Mass/volume] in Serum or Plasma [2345-7] 04/30/2025 11:17 AM 417 mg/dL N Blood chemistry[[id number]] Glucose [Mass/volume] in Serum or Plasma [2345-7] 04/30/2025 09:24 AM 303 mg/dL N Blood chemistry[[id number]] Glucose [Mass/volume] in Serum or Plasma [2345-7] 04/29/2025 04:34 PM 359 mg/dL N Blood chemistry[[id number]] Glucose [Mass/volume] in Serum or Plasma [2345-7] 04/29/2025 11:32 AM 355 mg/dL N Blood chemistry[[id number]] Glucose [Mass/volume] in Serum or Plasma [2345-7] 04/29/2025 10:11 AM 244 mg/dL N Blood chemistry[[id number]] Glucose [Mass/volume] in Serum or Plasma [2345-7] 04/28/2025 04:46 PM 491 mg/dL N Blood chemistry[[id number]] Glucose [Mass/volume] in Serum or Plasma [2345-7] 04/28/2025 11:54 AM 463 mg/dL N Blood chemistry[[id number]] Glucose [Mass/volume] in Serum or Plasma [2345-7] 04/28/2025 09:24 AM 395 mg/dL N Blood chemistry[[id number]] Glucose [Mass/volume] in Serum or Plasma [2345-7] 04/27/2025 04:14 PM 317 mg/dL N Blood chemistry[[id number]] Glucose [Mass/volume] in Serum or Plasma [2345-7] 04/27/2025 11:51 AM 263 mg/dL N Blood chemistry[[id number]] Glucose [Mass/volume] in Serum or Plasma [2345-7] 04/27/2025 09:40 AM 406 mg/dL N Blood chemistry[[id number]] Glucose [Mass/volume] in Serum or Plasma [2345-7] 04/26/2025 04:19 PM 274 mg/dL N Blood chemistry[[id number]] Glucose [Mass/volume] in Serum or Plasma [2345-7] 04/26/2025 12:04 PM 253 mg/dL N Blood chemistry[[id number]] Glucose [Mass/volume] in Serum or Plasma [2345-7] 04/26/2025 09:21 AM 329 mg/dL N Blood chemistry[[id number]] Glucose [Mass/volume] in Serum or Plasma [2345-7] 04/25/2025 05:55 PM 316 mg/dL N Blood chemistry[[id number]] Glucose [Mass/volume] in Serum or Plasma [2345-7] 04/25/2025 12:55 PM 317 mg/dL N Blood chemistry[[id number]] Glucose [Mass/volume] in Serum or Plasma [2345-7] 04/25/2025 09:54 AM 337 mg/dL N Blood chemistry[[id number]] Glucose [Mass/volume] in Serum or Plasma [2345-7] 04/24/2025 04:35 PM 328 mg/dL N Blood chemistry[[id number]] Glucose [Mass/volume] in Serum or Plasma [2345-7] 04/24/2025 11:29 AM 411 mg/dL N Blood chemistry[[id number]] Glucose [Mass/volume] in Serum or Plasma [2345-7] 04/24/2025 09:57 AM 377 mg/dL N Blood chemistry[[id number]] Glucose [Mass/volume] in Serum or Plasma [2345-7] 04/23/2025 04:13 PM 299 mg/dL N Blood chemistry[[id number]] Glucose [Mass/volume] in Serum or Plasma [2345-7] 04/23/2025 12:54 PM 328 mg/dL N Blood chemistry[[id number]] Glucose [Mass/volume] in Serum or Plasma [2345-7] 04/23/2025 10:40 AM 285 mg/dL N Blood chemistry[[id number]] Glucose [Mass/volume] in Serum or Plasma [2345-7] 04/22/2025 05:25 PM 393 mg/dL N Blood chemistry[[id number]] Glucose [Mass/volume] in Serum or Plasma [2345-7] 04/22/2025 12:59 PM 226 mg/dL N Blood chemistry[[id number]] Glucose [Mass/volume] in Serum or Plasma [2345-7] 04/22/2025 10:00 AM 267 mg/dL N Blood chemistry[[id number]] Glucose [Mass/volume] in Serum or Plasma [2345-7] 04/21/2025 05:16 PM 326 mg/dL N Blood chemistry[[id number]] Glucose [Mass/volume] in Serum or Plasma [2345-7] 04/21/2025 12:32 PM 226 mg/dL N Blood chemistry[[id number]] Glucose [Mass/volume] in Serum or Plasma [2345-7] 04/21/2025 10:05 AM 297 mg/dL N Blood chemistry[[id number]] Glucose [Mass/volume] in Serum or Plasma [2345-7] 04/20/2025 04:06 PM 328 mg/dL N Blood chemistry[[id number]] Glucose [Mass/volume] in Serum or Plasma [2345-7] 04/20/2025 11:40 AM 258 mg/dL N Blood chemistry[[id number]] Glucose [Mass/volume] in Serum or Plasma [2345-7] 04/20/2025 09:02 AM 252 mg/dL N Blood chemistry[[id number]] Glucose [Mass/volume] in Serum or Plasma [2345-7] 04/19/2025 04:15 PM 329 mg/dL N Blood chemistry[[id number]] Glucose [Mass/volume] in Serum or Plasma [2345-7] 04/19/2025 11:52 AM 310 mg/dL N Blood chemistry[[id number]] Glucose [Mass/volume] in Serum or Plasma [2345-7] 04/19/2025 09:09 AM 291 mg/dL N Blood chemistry[[id number]] Glucose [Mass/volume] in Serum or Plasma [2345-7] 04/18/2025 04:50 PM 402 mg/dL N Blood chemistry[[id number]] Glucose [Mass/volume] in Serum or Plasma [2345-7] 04/18/2025 11:34 AM 311 mg/dL N Blood chemistry[[id number]] Glucose [Mass/volume] in Serum or Plasma [2345-7] 04/18/2025 09:11 AM 387 mg/dL N Blood chemistry[[id number]] Glucose [Mass/volume] in Serum or Plasma [2345-7] 04/17/2025 03:51 PM 383 mg/dL N Blood chemistry[[id number]] Glucose [Mass/volume] in Serum or Plasma [2345-7] 04/17/2025 12:39 PM 356 mg/dL N Blood chemistry[[id number]] Glucose [Mass/volume] in Serum or Plasma [2345-7] 04/17/2025 09:31 AM 324 mg/dL N Blood chemistry[[id number]] Glucose [Mass/volume] in Serum or Plasma [2345-7] 04/16/2025 11:43 AM 327 mg/dL N Blood chemistry[[id number]] Glucose [Mass/volume] in Serum or Plasma [2345-7] 04/16/2025 08:59 AM 350 mg/dL N Blood chemistry[[id number]] Glucose [Mass/volume] in Serum or Plasma [2345-7] 04/16/2025 06:09 AM 341 mg/dL N Blood chemistry[[id number]] Glucose [Mass/volume] in Serum or Plasma [2345-7] 04/15/2025 05:48 PM 212 mg/dL N Blood chemistry[[id number]] Glucose [Mass/volume] in Serum or Plasma [2345-7] 04/15/2025 11:43 AM 422 mg/dL N Blood chemistry[[id number]] Glucose [Mass/volume] in Serum or Plasma [2345-7] 04/15/2025 09:00 AM 316 mg/dL N Blood chemistry[[id number]] Glucose [Mass/volume] in Serum or Plasma [2345-7] 04/15/2025 06:23 AM 392 mg/dL N Blood chemistry[[id number]] Glucose [Mass/volume] in Serum or Plasma [2345-7] 04/10/2025 05:44 PM 293 mg/dL N Blood chemistry[[id number]] Glucose [Mass/volume] in Serum or Plasma [2345-7] 04/10/2025 12:05 PM 195 mg/dL N Blood chemistry[[id number]] Glucose [Mass/volume] in Serum or Plasma [2345-7] 04/09/2025 04:06 PM 246 mg/dL N Blood chemistry[[id number]] Glucose [Mass/volume] in Serum or Plasma [2345-7] 04/09/2025 02:04 PM 202 mg/dL N Blood chemistry[[id number]] Glucose [Mass/volume] in Serum or Plasma [2345-7] 04/09/2025 10:42 AM 213 mg/dL N Blood chemistry[[id number]] Glucose [Mass/volume] in Serum or Plasma [2345-7] 04/09/2025 09:04 AM 231 mg/dL N Blood chemistry[[id number]] Glucose [Mass/volume] in Serum or Plasma [2345-7] 04/08/2025 04:55 PM 273 mg/dL N Blood chemistry[[id number]] Glucose [Mass/volume] in Serum or Plasma [2345-7] 04/08/2025 01:46 PM 175 mg/dL N Blood chemistry[[id number]] Glucose [Mass/volume] in Serum or Plasma [2345-7] 04/08/2025 10:53 AM 243 mg/dL N Blood chemistry[[id number]] Glucose [Mass/volume] in Serum or Plasma [2345-7] 04/08/2025 10:37 AM 177 mg/dL N Blood chemistry[[id number]] Glucose [Mass/volume] in Serum or Plasma [2345-7] 04/07/2025 04:50 PM 229 mg/dL N Blood chemistry[[id number]] Glucose [Mass/volume] in Serum or Plasma [2345-7] 04/07/2025 04:47 PM 229 mg/dL N Blood chemistry[[id number]] Glucose [Mass/volume] in Serum or Plasma [2345-7] 04/07/2025 01:34 PM 182 mg/dL N Blood chemistry[[id number]] Glucose [Mass/volume] in Serum or Plasma [2345-7] 04/07/2025 01:27 PM 182 mg/dL N Blood chemistry[[id number]] Glucose [Mass/volume] in Serum or Plasma [2345-7] 04/07/2025 01:26 PM 257 mg/dL N Blood chemistry[[id number]] Glucose [Mass/volume] in Serum or Plasma [2345-7] 04/07/2025 10:19 AM 226 mg/dL N Blood chemistry[[id number]] Glucose [Mass/volume] in Serum or Plasma [2345-7] 04/07/2025 10:13 AM 226 mg/dL N Blood chemistry[[id number]] Glucose [Mass/volume] in Serum or Plasma [2345-7] 04/06/2025 04:11 PM 353 mg/dL N Blood chemistry[[id number]] Glucose [Mass/volume] in Serum or Plasma [2345-7] 04/06/2025 12:21 PM 230 mg/dL N Blood chemistry[[id number]] Glucose [Mass/volume] in Serum or Plasma [2345-7] 04/06/2025 11:44 AM 267 mg/dL N Blood chemistry[[id number]] Glucose [Mass/volume] in Serum or Plasma [2345-7] 04/06/2025 09:04 AM 278 mg/dL N Blood chemistry[[id number]] Glucose [Mass/volume] in Serum or Plasma [2345-7] 04/05/2025 03:55 PM 302 mg/dL N Blood chemistry[[id number]] Glucose [Mass/volume] in Serum or Plasma [2345-7] 04/05/2025 12:04 PM 245 mg/dL N Blood chemistry[[id number]] Glucose [Mass/volume] in Serum or Plasma [2345-7] 04/05/2025 11:33 AM 292 mg/dL N Blood chemistry[[id number]] Glucose [Mass/volume] in Serum or Plasma [2345-7] 04/05/2025 09:09 AM 237 mg/dL N Blood chemistry[[id number]] Glucose [Mass/volume] in Serum or Plasma [2345-7] 04/04/2025 04:33 PM 357 mg/dL N Blood chemistry[[id number]] Glucose [Mass/volume] in Serum or Plasma [2345-7] 04/04/2025 12:09 PM 279 mg/dL N Blood chemistry[[id number]] Glucose [Mass/volume] in Serum or Plasma [2345-7] 04/04/2025 11:29 AM 250 mg/dL N Blood chemistry[[id number]] Glucose [Mass/volume] in Serum or Plasma [2345-7] 04/04/2025 09:18 AM 239 mg/dL N Blood chemistry[[id number]] Glucose [Mass/volume] in Serum or Plasma [2345-7] 04/03/2025 05:35 PM 318 mg/dL N Blood chemistry[[id number]] Glucose [Mass/volume] in Serum or Plasma [2345-7] 04/03/2025 01:19 PM 215 mg/dL N Blood chemistry[[id number]] Glucose [Mass/volume] in Serum or Plasma [2345-7] 04/03/2025 12:19 PM 250 mg/dL N Blood chemistry[[id number]] Glucose [Mass/volume] in Serum or Plasma [2345-7] 04/03/2025 10:42 AM 271 mg/dL N Blood chemistry[[id number]] Glucose [Mass/volume] in Serum or Plasma [2345-7] 04/03/2025 10:05 AM 271 mg/dL N Blood chemistry[[id number]] Glucose [Mass/volume] in Serum or Plasma [2345-7] 04/02/2025 04:09 PM 261 mg/dL N Blood chemistry[[id number]] Glucose [Mass/volume] in Serum or Plasma [2345-7] 04/02/2025 02:03 PM 374 mg/dL N Blood chemistry[[id number]] Glucose [Mass/volume] in Serum or Plasma [2345-7] 04/02/2025 11:37 AM 250 mg/dL N Blood chemistry[[id number]] Glucose [Mass/volume] in Serum or Plasma [2345-7] 04/02/2025 08:34 AM 283 mg/dL N Blood chemistry[[id number]] Glucose [Mass/volume] in Serum or Plasma [2345-7] 04/01/2025 04:31 PM 237 mg/dL N Blood chemistry[[id number]] Glucose [Mass/volume] in Serum or Plasma [2345-7] 04/01/2025 01:00 PM 278 mg/dL N Blood chemistry[[id number]] Glucose [Mass/volume] in Serum or Plasma [2345-7] 04/01/2025 11:41 AM 231 mg/dL N Blood chemistry[[id number]] Glucose [Mass/volume] in Serum or Plasma [2345-7] 04/01/2025 09:36 AM 262 mg/dL N Blood chemistry[[id number]] Glucose [Mass/volume] in Serum or Plasma [2345-7] 04/01/2025 09:15 AM 262 mg/dL N Blood chemistry[[id number]] Glucose [Mass/volume] in Serum or Plasma [2345-7] 03/31/2025 01:13 PM 389 mg/dL N Blood chemistry[[id number]] Glucose [Mass/volume] in Serum or Plasma [2345-7] 03/31/2025 11:50 AM 220 mg/dL N Blood chemistry[[id number]] Glucose [Mass/volume] in Serum or Plasma [2345-7] 03/31/2025 09:26 AM 337 mg/dL N Blood chemistry[[id number]] Glucose [Mass/volume] in Serum or Plasma [2345-7] 03/30/2025 04:32 PM 281 mg/dL N Blood chemistry[[id number]] Glucose [Mass/volume] in Serum or Plasma [2345-7] 03/30/2025 01:32 PM 241 mg/dL N Blood chemistry[[id number]] Glucose [Mass/volume] in Serum or Plasma [2345-7] 03/30/2025 12:13 PM 231 mg/dL N Blood chemistry[[id number]] Glucose [Mass/volume] in Serum or Plasma [2345-7] 03/30/2025 09:35 AM 283 mg/dL N Blood chemistry[[id number]] Glucose [Mass/volume] in Serum or Plasma [2345-7] 03/29/2025 05:38 PM 267 mg/dL N Blood chemistry[[id number]] Glucose [Mass/volume] in Serum or Plasma [2345-7] 03/29/2025 03:16 PM 253 mg/dL N Blood chemistry[[id number]] Glucose [Mass/volume] in Serum or Plasma [2345-7] 03/29/2025 12:33 PM 332 mg/dL N Blood chemistry[[id number]] Glucose [Mass/volume] in Serum or Plasma [2345-7] 03/29/2025 11:39 AM 326 mg/dL N Blood chemistry[[id number]] Glucose [Mass/volume] in Serum or Plasma [2345-7] 03/28/2025 05:28 PM 258 mg/dL N Blood chemistry[[id number]] Glucose [Mass/volume] in Serum or Plasma [2345-7] 03/28/2025 01:11 PM 328 mg/dL N Blood chemistry[[id number]] Glucose [Mass/volume] in Serum or Plasma [2345-7] 03/28/2025 12:45 PM 328 mg/dL N Blood chemistry[[id number]] Glucose [Mass/volume] in Serum or Plasma [2345-7] 03/28/2025 11:52 AM 234 mg/dL N Blood chemistry[[id number]] Glucose [Mass/volume] in Serum or Plasma [2345-7] 03/28/2025 10:07 AM 264 mg/dL N Blood chemistry[[id number]] Glucose [Mass/volume] in Serum or Plasma [2345-7] 03/27/2025 05:33 PM 286 mg/dL N Blood chemistry[[id number]] Glucose [Mass/volume] in Serum or Plasma [2345-7] 03/27/2025 12:18 PM 312 mg/dL N Blood chemistry[[id number]] Glucose [Mass/volume] in Serum or Plasma [2345-7] 03/27/2025 11:40 AM 263 mg/dL N Blood chemistry[[id number]] Glucose [Mass/volume] in Serum or Plasma [2345-7] 03/27/2025 09:10 AM 210 mg/dL N Blood chemistry[[id number]] Glucose [Mass/volume] in Serum or Plasma [2345-7] 03/26/2025 03:56 PM 331 mg/dL N Blood chemistry[[id number]] Glucose [Mass/volume] in Serum or Plasma [2345-7] 03/26/2025 01:56 PM 341 mg/dL N Blood chemistry[[id number]] Glucose [Mass/volume] in Serum or Plasma [2345-7] 03/26/2025 12:07 PM 281 mg/dL N Blood chemistry[[id number]] Glucose [Mass/volume] in Serum or Plasma [2345-7] 03/26/2025 10:39 AM 341 mg/dL N Blood chemistry[[id number]] Glucose [Mass/volume] in Serum or Plasma [2345-7] 03/26/2025 10:15 AM 287 mg/dL N Blood chemistry[[id number]] Glucose [Mass/volume] in Serum or Plasma [2345-7] 03/26/2025 08:21 AM 287 mg/dL N Blood chemistry[[id number]] Glucose [Mass/volume] in Serum or Plasma [2345-7] 03/25/2025 04:12 PM 389 mg/dL N Blood chemistry[[id number]] Glucose [Mass/volume] in Serum or Plasma [2345-7] 03/25/2025 02:04 PM 194 mg/dL N Blood chemistry[[id number]] Glucose [Mass/volume] in Serum or Plasma [2345-7] 03/25/2025 01:02 PM 261 mg/dL N Blood chemistry[[id number]] Glucose [Mass/volume] in Serum or Plasma [2345-7] 03/25/2025 12:15 PM 251 mg/dL N Blood chemistry[[id number]] Glucose [Mass/volume] in Serum or Plasma [2345-7] 03/25/2025 09:22 AM 203 mg/dL N Blood chemistry[[id number]] Glucose [Mass/volume] in Serum or Plasma [2345-7] 03/24/2025 04:04 PM 374 mg/dL N Blood chemistry[[id number]] Glucose [Mass/volume] in Serum or Plasma [2345-7] 03/24/2025 03:39 PM 374 mg/dL N Blood chemistry[[id number]] Glucose [Mass/volume] in Serum or Plasma [2345-7] 03/24/2025 11:48 AM 165 mg/dL N Blood chemistry[[id number]] Glucose [Mass/volume] in Serum or Plasma [2345-7] 03/24/2025 09:56 AM 287 mg/dL N Blood chemistry[[id number]] Glucose [Mass/volume] in Serum or Plasma [2345-7] 03/24/2025 08:53 AM 271 mg/dL N Blood chemistry[[id number]] Glucose [Mass/volume] in Serum or Plasma [2345-7] 03/23/2025 04:28 PM 220 mg/dL N Blood chemistry[[id number]] Glucose [Mass/volume] in Serum or Plasma [2345-7] 03/23/2025 12:01 PM 262 mg/dL N Blood chemistry[[id number]] Glucose [Mass/volume] in Serum or Plasma [2345-7] 03/23/2025 11:24 AM 169 mg/dL N Blood chemistry[[id number]] Glucose [Mass/volume] in Serum or Plasma [2345-7] 03/23/2025 08:47 AM 167 mg/dL N Blood chemistry[[id number]] Glucose [Mass/volume] in Serum or Plasma [2345-7] 03/23/2025 06:02 AM 224 mg/dL N Blood chemistry[[id number]] Glucose [Mass/volume] in Serum or Plasma [2345-7] 03/22/2025 03:28 PM 272 mg/dL N Blood chemistry[[id number]] Glucose [Mass/volume] in Serum or Plasma [2345-7] 03/22/2025 11:10 AM 212 mg/dL N Blood chemistry[[id number]] Glucose [Mass/volume] in Serum or Plasma [2345-7] 03/22/2025 08:29 AM 186 mg/dL N Blood chemistry[[id number]] Glucose [Mass/volume] in Serum or Plasma [2345-7] 03/21/2025 03:38 PM 249 mg/dL N Blood chemistry[[id number]] Glucose [Mass/volume] in Serum or Plasma [2345-7] 03/21/2025 12:45 PM 236 mg/dL N Blood chemistry[[id number]] Glucose [Mass/volume] in Serum or Plasma [2345-7] 03/21/2025 12:15 PM 172 mg/dL N Blood chemistry[[id number]] Glucose [Mass/volume] in Serum or Plasma [2345-7] 03/21/2025 09:36 AM 168 mg/dL N Blood chemistry[[id number]] Glucose [Mass/volume] in Serum or Plasma [2345-7] 03/21/2025 08:54 AM 234 mg/dL N Blood chemistry[[id number]] Glucose [Mass/volume] in Serum or Plasma [2345-7] 03/20/2025 05:22 PM 241 mg/dL N Blood chemistry[[id number]] Glucose [Mass/volume] in Serum or Plasma [2345-7] 03/20/2025 05:17 PM 241 mg/dL N Blood chemistry[[id number]] Glucose [Mass/volume] in Serum or Plasma [2345-7] 03/20/2025 12:07 PM 182 mg/dL N Blood chemistry[[id number]] Glucose [Mass/volume] in Serum or Plasma [2345-7] 03/20/2025 10:17 AM 242 mg/dL N Blood chemistry[[id number]] Glucose [Mass/volume] in Serum or Plasma [2345-7] 03/20/2025 09:19 AM 242 mg/dL N Blood chemistry[[id number]] Glucose [Mass/volume] in Serum or Plasma [2345-7] 03/19/2025 04:28 PM 226 mg/dL N Blood chemistry[[id number]] Glucose [Mass/volume] in Serum or Plasma [2345-7] 03/19/2025 04:04 PM 210 mg/dL N Glucose [Mass/volume] in Serum or Plasma [2345-7] 03/19/2025 04:04 PM 210 mg/dL N Blood chemistry[[id number]] Glucose [Mass/volume] in Serum or Plasma [2345-7] 03/19/2025 01:57 PM 181 mg/dL N Blood chemistry[[id number]] Glucose [Mass/volume] in Serum or Plasma [2345-7] 03/19/2025 11:45 AM 181 mg/dL N Blood chemistry[[id number]] Glucose [Mass/volume] in Serum or Plasma [2345-7] 03/19/2025 10:24 AM 267 mg/dL N Blood chemistry[[id number]] Glucose [Mass/volume] in Serum or Plasma [2345-7] 03/18/2025 03:53 PM 250 mg/dL N Blood chemistry[[id number]] Glucose [Mass/volume] in Serum or Plasma [2345-7] 03/18/2025 02:40 PM 167 mg/dL N Blood chemistry[[id number]] Glucose [Mass/volume] in Serum or Plasma [2345-7] 03/18/2025 01:15 PM 239 mg/dL N Blood chemistry[[id number]] Glucose [Mass/volume] in Serum or Plasma [2345-7] 03/18/2025 11:46 AM 239 mg/dL N Blood chemistry[[id number]] Glucose [Mass/volume] in Serum or Plasma [2345-7] 03/18/2025 09:26 AM 253 mg/dL N Blood chemistry[[id number]] Glucose [Mass/volume] in Serum or Plasma [2345-7] 03/18/2025 06:07 AM 315 mg/dL N Blood chemistry[[id number]] Glucose [Mass/volume] in Serum or Plasma [2345-7] 03/17/2025 05:21 PM 218 mg/dL N Blood chemistry[[id number]] Glucose [Mass/volume] in Serum or Plasma [2345-7] 03/17/2025 01:13 PM 216 mg/dL N Blood chemistry[[id number]] Glucose [Mass/volume] in Serum or Plasma [2345-7] 03/17/2025 10:38 AM 235 mg/dL N Blood chemistry[[id number]] Glucose [Mass/volume] in Serum or Plasma [2345-7] 03/16/2025 01:32 PM 287 mg/dL N Blood chemistry[[id number]] Glucose [Mass/volume] in Serum or Plasma [2345-7] 02/06/2025 05:39 PM 204 mg/dL N Blood chemistry[[id number]] Glucose [Mass/volume] in Serum or Plasma [2345-7] 02/06/2025 09:47 AM 199 mg/dL N Blood chemistry[[id number]] Glucose [Mass/volume] in Serum or Plasma [2345-7] 02/06/2025 01:18 PM 147 mg/dL N Blood chemistry[[id number]] Glucose [Mass/volume] in Serum or Plasma [2345-7] 02/05/2025 01:07 PM 264 mg/dL N Blood chemistry[[id number]] Glucose [Mass/volume] in Serum or Plasma [2345-7] 02/05/2025 03:58 PM 251 mg/dL N Blood chemistry[[id number]] Glucose [Mass/volume] in Serum or Plasma [2345-7] 02/05/2025 09:28 AM 231 mg/dL N Blood chemistry[[id number]] Glucose [Mass/volume] in Serum or Plasma [2345-7] 02/05/2025 11:24 AM 207 mg/dL N Blood chemistry[[id number]] Glucose [Mass/volume] in Serum or Plasma [2345-7] 02/04/2025 12:58 PM 255 mg/dL N Blood chemistry[[id number]] Glucose [Mass/volume] in Serum or Plasma [2345-7] 02/04/2025 04:34 PM 280 mg/dL N Blood chemistry[[id number]] Glucose [Mass/volume] in Serum or Plasma [2345-7] 02/04/2025 09:16 AM 252 mg/dL N Blood chemistry[[id number]] Glucose [Mass/volume] in Serum or Plasma [2345-7] 02/04/2025 11:47 AM 177 mg/dL N Blood chemistry[[id number]] Glucose [Mass/volume] in Serum or Plasma [2345-7] 02/03/2025 12:37 PM 274 mg/dL N Blood chemistry[[id number]] Glucose [Mass/volume] in Serum or Plasma [2345-7] 02/03/2025 04:21 PM 265 mg/dL N Blood chemistry[[id number]] Glucose [Mass/volume] in Serum or Plasma [2345-7] 02/03/2025 09:29 AM 262 mg/dL N Blood chemistry[[id number]] Glucose [Mass/volume] in Serum or Plasma [2345-7] 02/03/2025 11:12 AM 263 mg/dL N Blood chemistry[[id number]] Glucose [Mass/volume] in Serum or Plasma [2345-7] 02/02/2025 01:06 PM 279 mg/dL N Blood chemistry[[id number]] Glucose [Mass/volume] in Serum or Plasma [2345-7] 02/02/2025 04:15 PM 229 mg/dL N Blood chemistry[[id number]] Glucose [Mass/volume] in Serum or Plasma [2345-7] 02/02/2025 09:47 AM 306 mg/dL N Blood chemistry[[id number]] Glucose [Mass/volume] in Serum or Plasma [2345-7] 02/02/2025 11:22 AM 208 mg/dL N Blood chemistry[[id number]] Glucose [Mass/volume] in Serum or Plasma [2345-7] 02/01/2025 12:17 PM 223 mg/dL N Blood chemistry[[id number]] Glucose [Mass/volume] in Serum or Plasma [2345-7] 02/01/2025 04:44 PM 268 mg/dL N Blood chemistry[[id number]] Glucose [Mass/volume] in Serum or Plasma [2345-7] 02/01/2025 11:03 AM 212 mg/dL N Blood chemistry[[id number]] Glucose [Mass/volume] in Serum or Plasma [2345-7] 01/31/2025 02:13 PM 243 mg/dL N Blood chemistry[[id number]] Glucose [Mass/volume] in Serum or Plasma [2345-7] 01/31/2025 04:50 PM 270 mg/dL N Blood chemistry[[id number]] Glucose [Mass/volume] in Serum or Plasma [2345-7] 01/31/2025 09:30 AM 252 mg/dL N Blood chemistry[[id number]] Glucose [Mass/volume] in Serum or Plasma [2345-7] 01/31/2025 12:47 PM 182 mg/dL N Blood chemistry[[id number]] Glucose [Mass/volume] in Serum or Plasma [2345-7] 01/31/2025 08:01 AM 196 mg/dL N Blood chemistry[[id number]] Glucose [Mass/volume] in Serum or Plasma [2345-7] 01/30/2025 04:31 PM 230 mg/dL N Blood chemistry[[id number]] Glucose [Mass/volume] in Serum or Plasma [2345-7] 01/30/2025 09:23 AM 243 mg/dL N Blood chemistry[[id number]] Glucose [Mass/volume] in Serum or Plasma [2345-7] 01/30/2025 12:05 PM 213 mg/dL N Blood chemistry[[id number]] Glucose [Mass/volume] in Serum or Plasma [2345-7] 01/29/2025 01:49 PM 278 mg/dL N Blood chemistry[[id number]] Glucose [Mass/volume] in Serum or Plasma [2345-7] 01/29/2025 10:40 AM 201 mg/dL N Blood chemistry[[id number]] Glucose [Mass/volume] in Serum or Plasma [2345-7] 01/29/2025 05:07 PM 287 mg/dL N Blood chemistry[[id number]] Glucose [Mass/volume] in Serum or Plasma [2345-7] 01/29/2025 01:36 PM 199 mg/dL N Blood chemistry[[id number]] Glucose [Mass/volume] in Serum or Plasma [2345-7] 01/28/2025 02:28 PM 204 mg/dL N Blood chemistry[[id number]] Glucose [Mass/volume] in Serum or Plasma [2345-7] 01/28/2025 04:35 PM 293 mg/dL N Blood chemistry[[id number]] Glucose [Mass/volume] in Serum or Plasma [2345-7] 01/28/2025 10:07 AM 232 mg/dL N Blood chemistry[[id number]] Glucose [Mass/volume] in Serum or Plasma [2345-7] 01/28/2025 01:30 PM 231 mg/dL N Blood chemistry[[id number]] Glucose [Mass/volume] in Serum or Plasma [2345-7] 01/27/2025 01:57 PM 289 mg/dL N Blood chemistry[[id number]] Glucose [Mass/volume] in Serum or Plasma [2345-7] 01/27/2025 05:11 PM 320 mg/dL N Blood chemistry[[id number]] Glucose [Mass/volume] in Serum or Plasma [2345-7] 01/27/2025 09:50 AM 211 mg/dL N Blood chemistry[[id number]] Glucose [Mass/volume] in Serum or Plasma [2345-7] 01/27/2025 12:50 PM 256 mg/dL N Blood chemistry[[id number]] Glucose [Mass/volume] in Serum or Plasma [2345-7] 01/26/2025 12:40 PM 292 mg/dL N Blood chemistry[[id number]] Glucose [Mass/volume] in Serum or Plasma [2345-7] 01/26/2025 04:26 PM 262 mg/dL N Blood chemistry[[id number]] Glucose [Mass/volume] in Serum or Plasma [2345-7] 01/26/2025 09:09 AM 263 mg/dL N Blood chemistry[[id number]] Glucose [Mass/volume] in Serum or Plasma [2345-7] 01/26/2025 11:30 AM 232 mg/dL N Blood chemistry[[id number]] Glucose [Mass/volume] in Serum or Plasma [2345-7] 01/25/2025 02:51 PM 261 mg/dL N Blood chemistry[[id number]] Glucose [Mass/volume] in Serum or Plasma [2345-7] 01/25/2025 04:20 PM 290 mg/dL N Blood chemistry[[id number]] Glucose [Mass/volume] in Serum or Plasma [2345-7] 01/25/2025 09:17 AM 250 mg/dL N Blood chemistry[[id number]] Glucose [Mass/volume] in Serum or Plasma [2345-7] 01/25/2025 11:24 AM 286 mg/dL N Blood chemistry[[id number]] Glucose [Mass/volume] in Serum or Plasma [2345-7] 01/24/2025 12:59 PM 232 mg/dL N Blood chemistry[[id number]] Glucose [Mass/volume] in Serum or Plasma [2345-7] 01/24/2025 04:09 PM 220 mg/dL N Blood chemistry[[id number]] Glucose [Mass/volume] in Serum or Plasma [2345-7] 01/24/2025 09:13 AM 236 mg/dL N Blood chemistry[[id number]] Glucose [Mass/volume] in Serum or Plasma [2345-7] 01/24/2025 12:02 PM 200 mg/dL N Blood chemistry[[id number]] Glucose [Mass/volume] in Serum or Plasma [2345-7] 01/23/2025 11:57 AM 235 mg/dL N Blood chemistry[[id number]] Glucose [Mass/volume] in Serum or Plasma [2345-7] 01/23/2025 04:32 PM 204 mg/dL N Blood chemistry[[id number]] Glucose [Mass/volume] in Serum or Plasma [2345-7] 01/23/2025 09:27 AM 193 mg/dL N Blood chemistry[[id number]] Glucose [Mass/volume] in Serum or Plasma [2345-7] 01/23/2025 12:33 PM 199 mg/dL N Blood chemistry[[id number]] Glucose [Mass/volume] in Serum or Plasma [2345-7] 01/22/2025 01:42 PM 180 mg/dL N Blood chemistry[[id number]] Glucose [Mass/volume] in Serum or Plasma [2345-7] 01/22/2025 04:08 PM 246 mg/dL N Blood chemistry[[id number]] Glucose [Mass/volume] in Serum or Plasma [2345-7] 01/22/2025 09:01 AM 193 mg/dL N Blood chemistry[[id number]] Glucose [Mass/volume] in Serum or Plasma [2345-7] 01/22/2025 11:26 AM 194 mg/dL N Blood chemistry[[id number]] Glucose [Mass/volume] in Serum or Plasma [2345-7] 01/21/2025 01:27 PM 226 mg/dL N Blood chemistry[[id number]] Glucose [Mass/volume] in Serum or Plasma [2345-7] 01/21/2025 04:16 PM 212 mg/dL N Blood chemistry[[id number]] Glucose [Mass/volume] in Serum or Plasma [2345-7] 01/21/2025 09:12 AM 187 mg/dL N Blood chemistry[[id number]] Glucose [Mass/volume] in Serum or Plasma [2345-7] 01/21/2025 11:24 AM 181 mg/dL N Blood chemistry[[id number]] Glucose [Mass/volume] in Serum or Plasma [2345-7] 01/20/2025 01:15 PM 209 mg/dL N Blood chemistry[[id number]] Glucose [Mass/volume] in Serum or Plasma [2345-7] 01/20/2025 04:17 PM 250 mg/dL N Blood chemistry[[id number]] Glucose [Mass/volume] in Serum or Plasma [2345-7] 01/20/2025 09:23 AM 228 mg/dL N Blood chemistry[[id number]] Glucose [Mass/volume] in Serum or Plasma [2345-7] 01/20/2025 11:38 AM 179 mg/dL N Blood chemistry[[id number]] Glucose [Mass/volume] in Serum or Plasma [2345-7] 01/19/2025 01:30 PM 335 mg/dL N Blood chemistry[[id number]] Glucose [Mass/volume] in Serum or Plasma [2345-7] 01/19/2025 04:32 PM 222 mg/dL N Blood chemistry[[id number]] Glucose [Mass/volume] in Serum or Plasma [2345-7] 01/19/2025 09:24 AM 284 mg/dL N Blood chemistry[[id number]] Glucose [Mass/volume] in Serum or Plasma [2345-7] 01/19/2025 11:36 AM 166 mg/dL N Blood chemistry[[id number]] Glucose [Mass/volume] in Serum or Plasma [2345-7] 01/18/2025 03:56 PM 194 mg/dL N Blood chemistry[[id number]] Glucose [Mass/volume] in Serum or Plasma [2345-7] 01/18/2025 05:21 PM 178 mg/dL N Blood chemistry[[id number]] Glucose [Mass/volume] in Serum or Plasma [2345-7] 01/18/2025 09:43 AM 183 mg/dL N Blood chemistry[[id number]] Glucose [Mass/volume] in Serum or Plasma [2345-7] 01/18/2025 11:25 AM 156 mg/dL N Blood chemistry[[id number]] Glucose [Mass/volume] in Serum or Plasma [2345-7] 01/17/2025 01:33 PM 169 mg/dL N Blood chemistry[[id number]] Glucose [Mass/volume] in Serum or Plasma [2345-7] 01/17/2025 04:53 PM 200 mg/dL N Blood chemistry[[id number]] Glucose [Mass/volume] in Serum or Plasma [2345-7] 01/17/2025 09:01 AM 229 mg/dL N Blood chemistry[[id number]] Glucose [Mass/volume] in Serum or Plasma [2345-7] 01/17/2025 01:40 PM 180 mg/dL N Blood chemistry[[id number]] Glucose [Mass/volume] in Serum or Plasma [2345-7] 01/16/2025 11:40 AM 173 mg/dL N Blood chemistry[[id number]] Glucose [Mass/volume] in Serum or Plasma [2345-7] 01/16/2025 05:58 PM 198 mg/dL N Blood chemistry[[id number]] Glucose [Mass/volume] in Serum or Plasma [2345-7] 01/16/2025 09:41 AM 199 mg/dL N Blood chemistry[[id number]] Glucose [Mass/volume] in Serum or Plasma [2345-7] 01/16/2025 12:20 PM 187 mg/dL N Blood chemistry[[id number]] Glucose [Mass/volume] in Serum or Plasma [2345-7] 01/15/2025 01:57 PM 171 mg/dL N Blood chemistry[[id number]] Glucose [Mass/volume] in Serum or Plasma [2345-7] 01/15/2025 04:33 PM 220 mg/dL N Blood chemistry[[id number]] Glucose [Mass/volume] in Serum or Plasma [2345-7] 01/15/2025 09:24 AM 204 mg/dL N Blood chemistry[[id number]] Glucose [Mass/volume] in Serum or Plasma [2345-7] 01/15/2025 11:49 AM 170 mg/dL N Blood chemistry[[id number]] Glucose [Mass/volume] in Serum or Plasma [2345-7] 01/14/2025 02:42 PM 174 mg/dL N Blood chemistry[[id number]] Glucose [Mass/volume] in Serum or Plasma [2345-7] 01/14/2025 03:57 PM 233 mg/dL N Blood chemistry[[id number]] Glucose [Mass/volume] in Serum or Plasma [2345-7] 01/14/2025 09:21 AM 232 mg/dL N Blood chemistry[[id number]] Glucose [Mass/volume] in Serum or Plasma [2345-7] 01/14/2025 12:00 PM 126 mg/dL N Blood chemistry[[id number]] Glucose [Mass/volume] in Serum or Plasma [2345-7] 01/13/2025 04:03 PM 151 mg/dL N Blood chemistry[[id number]] Glucose [Mass/volume] in Serum or Plasma [2345-7] 01/13/2025 04:04 PM 233 mg/dL N Blood chemistry[[id number]] Glucose [Mass/volume] in Serum or Plasma [2345-7] 01/13/2025 09:33 AM 166 mg/dL N Blood chemistry[[id number]] Glucose [Mass/volume] in Serum or Plasma [2345-7] 01/13/2025 12:55 PM 179 mg/dL N Blood chemistry[[id number]] Glucose [Mass/volume] in Serum or Plasma [2345-7] 01/12/2025 01:41 PM 271 mg/dL N Blood chemistry[[id number]] Glucose [Mass/volume] in Serum or Plasma [2345-7] 01/12/2025 04:28 PM 239 mg/dL N Blood chemistry[[id number]] Glucose [Mass/volume] in Serum or Plasma [2345-7] 01/12/2025 09:00 AM 248 mg/dL N Blood chemistry[[id number]] Glucose [Mass/volume] in Serum or Plasma [2345-7] 01/12/2025 11:26 AM 237 mg/dL N Blood chemistry[[id number]] Glucose [Mass/volume] in Serum or Plasma [2345-7] 01/11/2025 01:44 PM 217 mg/dL N Blood chemistry[[id number]] Glucose [Mass/volume] in Serum or Plasma [2345-7] 01/11/2025 03:59 PM 312 mg/dL N Blood chemistry[[id number]] Glucose [Mass/volume] in Serum or Plasma [2345-7] 01/11/2025 09:09 AM 250 mg/dL N Blood chemistry[[id number]] Glucose [Mass/volume] in Serum or Plasma [2345-7] 01/11/2025 11:35 AM 243 mg/dL N Blood chemistry[[id number]] Glucose [Mass/volume] in Serum or Plasma [2345-7] 01/10/2025 01:11 PM 263 mg/dL N Blood chemistry[[id number]] Glucose [Mass/volume] in Serum or Plasma [2345-7] 01/10/2025 04:07 PM 311 mg/dL N Blood chemistry[[id number]] Glucose [Mass/volume] in Serum or Plasma [2345-7] 01/10/2025 09:31 AM 322 mg/dL N Blood chemistry[[id number]] Glucose [Mass/volume] in Serum or Plasma [2345-7] 01/10/2025 11:30 AM 252 mg/dL N Blood chemistry[[id number]] Glucose [Mass/volume] in Serum or Plasma [2345-7] 01/09/2025 03:34 PM 323 mg/dL N Blood chemistry[[id number]] Glucose [Mass/volume] in Serum or Plasma [2345-7] 01/09/2025 10:48 AM 359 mg/dL N Blood chemistry[[id number]] Glucose [Mass/volume] in Serum or Plasma [2345-7] 01/09/2025 04:56 PM 332 mg/dL N Blood chemistry[[id number]] Glucose [Mass/volume] in Serum or Plasma [2345-7] 01/09/2025 12:39 PM 242 mg/dL N Blood chemistry[[id number]] Glucose [Mass/volume] in Serum or Plasma [2345-7] 01/08/2025 01:51 PM 217 mg/dL N Blood chemistry[[id number]] Glucose [Mass/volume] in Serum or Plasma [2345-7] 01/08/2025 04:12 PM 234 mg/dL N Blood chemistry[[id number]] Glucose [Mass/volume] in Serum or Plasma [2345-7] 01/08/2025 09:05 AM 283 mg/dL N Blood chemistry[[id number]] Glucose [Mass/volume] in Serum or Plasma [2345-7] 01/08/2025 11:37 AM 210 mg/dL N Blood chemistry[[id number]] Glucose [Mass/volume] in Serum or Plasma [2345-7] 01/07/2025 02:34 PM 241 mg/dL N Blood chemistry[[id number]] Glucose [Mass/volume] in Serum or Plasma [2345-7] 01/07/2025 04:09 PM 213 mg/dL N Blood chemistry[[id number]] Glucose [Mass/volume] in Serum or Plasma [2345-7] 01/07/2025 09:13 AM 267 mg/dL N Blood chemistry[[id number]] Glucose [Mass/volume] in Serum or Plasma [2345-7] 01/06/2025 04:18 PM 323 mg/dL N Blood chemistry[[id number]] Glucose [Mass/volume] in Serum or Plasma [2345-7] 01/06/2025 11:50 AM 217 mg/dL N Blood chemistry[[id number]] Glucose [Mass/volume] in Serum or Plasma [2345-7] 01/05/2025 01:21 PM 228 mg/dL N Blood chemistry[[id number]] Glucose [Mass/volume] in Serum or Plasma [2345-7] 01/05/2025 04:15 PM 270 mg/dL N Blood chemistry[[id number]] Glucose [Mass/volume] in Serum or Plasma [2345-7] 01/05/2025 09:14 AM 216 mg/dL N Blood chemistry[[id number]] Glucose [Mass/volume] in Serum or Plasma [2345-7] 01/05/2025 11:31 AM 265 mg/dL N Blood chemistry[[id number]] Glucose [Mass/volume] in Serum or Plasma [2345-7] 01/04/2025 12:39 PM 270 mg/dL N Blood chemistry[[id number]] Glucose [Mass/volume] in Serum or Plasma [2345-7] 01/04/2025 03:56 PM 188 mg/dL N Blood chemistry[[id number]] Glucose [Mass/volume] in Serum or Plasma [2345-7] 01/04/2025 10:39 AM 289 mg/dL N Blood chemistry[[id number]] Glucose [Mass/volume] in Serum or Plasma [2345-7] 01/04/2025 01:15 PM 190 mg/dL N Blood chemistry[[id number]] Glucose [Mass/volume] in Serum or Plasma [2345-7] 01/04/2025 05:09 PM 234 mg/dL N Blood chemistry[[id number]] Glucose [Mass/volume] in Serum or Plasma [2345-7] 01/03/2025 04:36 PM 223 mg/dL N Blood chemistry[[id number]] Glucose [Mass/volume] in Serum or Plasma [2345-7] 01/03/2025 08:58 AM 219 mg/dL N Blood chemistry[[id number]] Glucose [Mass/volume] in Serum or Plasma [2345-7] 01/03/2025 11:28 AM 222 mg/dL N Blood chemistry[[id number]] Glucose [Mass/volume] in Serum or Plasma [2345-7] 01/02/2025 12:03 PM 267 mg/dL N Blood chemistry[[id number]] Glucose [Mass/volume] in Serum or Plasma [2345-7] 01/02/2025 04:39 PM 292 mg/dL N Blood chemistry[[id number]] Glucose [Mass/volume] in Serum or Plasma [2345-7] 01/02/2025 09:14 AM 137 mg/dL N Blood chemistry[[id number]] Glucose [Mass/volume] in Serum or Plasma [2345-7] 01/02/2025 02:11 PM 103 mg/dL N Blood chemistry[[id number]] Glucose [Mass/volume] in Serum or Plasma [2345-7] 01/01/2025 12:42 PM 200 mg/dL N Blood chemistry[[id number]] Glucose [Mass/volume] in Serum or Plasma [2345-7] 01/01/2025 05:13 PM 282 mg/dL N Blood chemistry[[id number]] Glucose [Mass/volume] in Serum or Plasma [2345-7] 01/01/2025 12:11 PM 225 mg/dL N Blood chemistry[[id number]] Glucose [Mass/volume] in Serum or Plasma [2345-7] 01/01/2025 09:59 AM 311 mg/dL N Blood chemistry[[id number]] Glucose [Mass/volume] in Serum or Plasma [2345-7] 12/31/2024 01:45 PM 241 mg/dL N Blood chemistry[[id number]] Glucose [Mass/volume] in Serum or Plasma [2345-7] 12/31/2024 12:03 PM 295 mg/dL N Blood chemistry[[id number]] Glucose [Mass/volume] in Serum or Plasma [2345-7] 12/31/2024 09:29 AM 286 mg/dL N Blood chemistry[[id number]] Glucose [Mass/volume] in Serum or Plasma [2345-7] 12/31/2024 06:39 AM 368 mg/dL N Tuberculosis reaction wheal[ 05488-4] Tuberculosis reaction wheal [75176-1] 12/29/2024 01:55 PM 0 mm NEG Blood chemistry[[id number]] Glucose [Mass/volume] in Serum or Plasma [2345-7] 12/30/2024 11:47 AM 299 mg/dL N Blood chemistry[[id number]] Glucose [Mass/volume] in Serum or Plasma [2345-7] 12/30/2024 03:33 PM 391 mg/dL N Blood chemistry[[id number]] Glucose [Mass/volume] in Serum or Plasma [2345-7] 12/30/2024 09:14 AM 394 mg/dL N Blood chemistry[[id number]] Glucose [Mass/volume] in Serum or Plasma [2345-7] 12/30/2024 11:36 AM 248 mg/dL N Blood chemistry[[id number]] Glucose [Mass/volume] in Serum or Plasma [2345-7] 12/29/2024 01:19 PM 299 mg/dL N Blood chemistry[[id number]] Glucose [Mass/volume] in Serum or Plasma [2345-7] 12/29/2024 04:17 PM 311 mg/dL N Blood chemistry[[id number]] Glucose [Mass/volume] in Serum or Plasma [2345-7] 12/29/2024 09:16 AM 335 mg/dL N Tuberculosis reaction wheal[ 44769-3] Tuberculosis reaction wheal [13332-1] 12/29/2024 01:55 PM See note TB test Blood chemistry[[id number]] Glucose [Mass/volume] in Serum or Plasma [2345-7] 12/29/2024 10:21 AM 311 mg/dL N Blood chemistry[[id number]] Glucose [Mass/volume] in Serum or Plasma [2345-7] 12/20/2024 11:30 AM 245 mg/dL N Blood chemistry[[id number]] Glucose [Mass/volume] in Serum or Plasma [2345-7] 12/19/2024 01:23 PM 249 mg/dL N Blood chemistry[[id number]] Glucose [Mass/volume] in Serum or Plasma [2345-7] 12/19/2024 04:13 PM 286 mg/dL N Blood chemistry[[id number]] Glucose [Mass/volume] in Serum or Plasma [2345-7] 12/19/2024 08:24 AM 193 mg/dL N Blood chemistry[[id number]] Glucose [Mass/volume] in Serum or Plasma [2345-7] 12/19/2024 01:16 PM 200 mg/dL N Blood chemistry[[id number]] Glucose [Mass/volume] in Serum or Plasma [2345-7] 12/18/2024 12:48 PM 288 mg/dL N Blood chemistry[[id number]] Glucose [Mass/volume] in Serum or Plasma [2345-7] 12/18/2024 10:35 AM 194 mg/dL N Blood chemistry[[id number]] Glucose [Mass/volume] in Serum or Plasma [2345-7] 12/18/2024 04:18 PM 238 mg/dL N Blood chemistry[[id number]] Glucose [Mass/volume] in Serum or Plasma [2345-7] 12/18/2024 12:56 PM 214 mg/dL N Blood chemistry[[id number]] Glucose [Mass/volume] in Serum or Plasma [2345-7] 12/17/2024 12:58 PM 200 mg/dL N Blood chemistry[[id number]] Glucose [Mass/volume] in Serum or Plasma [2345-7] 12/17/2024 04:59 PM 235 mg/dL N Blood chemistry[[id number]] Glucose [Mass/volume] in Serum or Plasma [2345-7] 12/17/2024 10:19 AM 228 mg/dL N Blood chemistry[[id number]] Glucose [Mass/volume] in Serum or Plasma [2345-7] 12/17/2024 11:45 AM 198 mg/dL N Blood chemistry[[id number]] Glucose [Mass/volume] in Serum or Plasma [2345-7] 12/17/2024 06:47 AM 189 mg/dL N Blood chemistry[[id number]] Glucose [Mass/volume] in Serum or Plasma [2345-7] 12/16/2024 04:49 PM 152 mg/dL N Blood chemistry[[id number]] Glucose [Mass/volume] in Serum or Plasma [2345-7] 12/16/2024 09:26 AM 172 mg/dL N Blood chemistry[[id number]] Glucose [Mass/volume] in Serum or Plasma [2345-7] 12/16/2024 11:56 AM 227 mg/dL N Blood chemistry[[id number]] Glucose [Mass/volume] in Serum or Plasma [2345-7] 12/15/2024 01:02 PM 235 mg/dL N Blood chemistry[[id number]] Glucose [Mass/volume] in Serum or Plasma [2345-7] 12/15/2024 04:51 PM 202 mg/dL N Blood chemistry[[id number]] Glucose [Mass/volume] in Serum or Plasma [2345-7] 12/15/2024 09:10 AM 209 mg/dL N Blood chemistry[[id number]] Glucose [Mass/volume] in Serum or Plasma [2345-7] 12/15/2024 11:44 AM 200 mg/dL N Blood chemistry[[id number]] Glucose [Mass/volume] in Serum or Plasma [2345-7] 12/14/2024 03:10 PM 191 mg/dL N Blood chemistry[[id number]] Glucose [Mass/volume] in Serum or Plasma [2345-7] 12/14/2024 04:16 PM 159 mg/dL N Blood chemistry[[id number]] Glucose [Mass/volume] in Serum or Plasma [2345-7] 12/14/2024 09:12 AM 188 mg/dL N Blood chemistry[[id number]] Glucose [Mass/volume] in Serum or Plasma [2345-7] 12/14/2024 11:48 AM 256 mg/dL N Blood chemistry[[id number]] Glucose [Mass/volume] in Serum or Plasma [2345-7] 12/13/2024 11:12 AM 201 mg/dL N Blood chemistry[[id number]] Glucose [Mass/volume] in Serum or Plasma [2345-7] 12/13/2024 09:03 AM 242 mg/dL N Blood chemistry[[id number]] Glucose [Mass/volume] in Serum or Plasma [2345-7] 12/13/2024 04:04 PM 281 mg/dL N Blood chemistry[[id number]] Glucose [Mass/volume] in Serum or Plasma [2345-7] 12/13/2024 11:54 AM 212 mg/dL N Blood chemistry[[id number]] Glucose [Mass/volume] in Serum or Plasma [2345-7] 12/13/2024 09:06 AM 305 mg/dL N Blood chemistry[[id number]] Glucose [Mass/volume] in Serum or Plasma [2345-7] 12/12/2024 04:42 PM 269 mg/dL N Blood chemistry[[id number]] Glucose [Mass/volume] in Serum or Plasma [2345-7] 12/12/2024 11:33 AM 203 mg/dL N Blood chemistry[[id number]] Glucose [Mass/volume] in Serum or Plasma [2345-7] 12/12/2024 09:04 AM 275 mg/dL N Blood chemistry[[id number]] Glucose [Mass/volume] in Serum or Plasma [2345-7] 12/11/2024 03:02 PM 278 mg/dL N Blood chemistry[[id number]] Glucose [Mass/volume] in Serum or Plasma [2345-7] 12/11/2024 09:17 AM 248 mg/dL N Blood chemistry[[id number]] Glucose [Mass/volume] in Serum or Plasma [2345-7] 12/11/2024 04:53 PM 250 mg/dL N Blood chemistry[[id number]] Glucose [Mass/volume] in Serum or Plasma [2345-7] 12/11/2024 11:52 AM 259 mg/dL N Blood chemistry[[id number]] Glucose [Mass/volume] in Serum or Plasma [2345-7] 12/10/2024 05:50 PM 263 mg/dL N Blood chemistry[[id number]] Glucose [Mass/volume] in Serum or Plasma [2345-7] 12/10/2024 03:17 PM 284 mg/dL N Blood chemistry[[id number]] Glucose [Mass/volume] in Serum or Plasma [2345-7] 12/10/2024 12:38 PM 221 mg/dL N Blood chemistry[[id number]] Glucose [Mass/volume] in Serum or Plasma [2345-7] 12/10/2024 10:54 AM 245 mg/dL N Blood chemistry[[id number]] Glucose [Mass/volume] in Serum or Plasma [2345-7] 12/09/2024 02:23 PM 214 mg/dL N Blood chemistry[[id number]] Glucose [Mass/volume] in Serum or Plasma [2345-7] 12/09/2024 09:57 AM 223 mg/dL N Blood chemistry[[id number]] Glucose [Mass/volume] in Serum or Plasma [2345-7] 12/09/2024 05:07 PM 225 mg/dL N Blood chemistry[[id number]] Glucose [Mass/volume] in Serum or Plasma [2345-7] 12/09/2024 12:42 PM 233 mg/dL N Blood chemistry[[id number]] Glucose [Mass/volume] in Serum or Plasma [2345-7] 12/08/2024 12:54 PM 297 mg/dL N Blood chemistry[[id number]] Glucose [Mass/volume] in Serum or Plasma [2345-7] 12/08/2024 10:19 AM 234 mg/dL N Blood chemistry[[id number]] Glucose [Mass/volume] in Serum or Plasma [2345-7] 12/08/2024 06:40 PM 229 mg/dL N Blood chemistry[[id number]] Glucose [Mass/volume] in Serum or Plasma [2345-7] 12/08/2024 05:22 PM 189 mg/dL N Blood chemistry[[id number]] Glucose [Mass/volume] in Serum or Plasma [2345-7] 12/08/2024 12:40 PM 227 mg/dL N Blood chemistry[[id number]] Glucose [Mass/volume] in Serum or Plasma [2345-7] 12/07/2024 11:23 AM 199 mg/dL N Blood chemistry[[id number]] Glucose [Mass/volume] in Serum or Plasma [2345-7] 12/07/2024 06:30 PM 186 mg/dL N Blood chemistry[[id number]] Glucose [Mass/volume] in Serum or Plasma [2345-7] 12/07/2024 02:55 PM 306 mg/dL N Blood chemistry[[id number]] Glucose [Mass/volume] in Serum or Plasma [2345-7] 12/06/2024 02:00 PM 316 mg/dL N Blood chemistry[[id number]] Glucose [Mass/volume] in Serum or Plasma [2345-7] 12/06/2024 10:16 AM 317 mg/dL N Blood chemistry[[id number]] Glucose [Mass/volume] in Serum or Plasma [2345-7] 12/06/2024 05:22 PM 205 mg/dL N Blood chemistry[[id number]] Glucose [Mass/volume] in Serum or Plasma [2345-7] 12/06/2024 01:56 PM 281 mg/dL N Blood chemistry[[id number]] Glucose [Mass/volume] in Serum or Plasma [2345-7] 12/05/2024 06:08 PM 217 mg/dL N Blood chemistry[[id number]] Glucose [Mass/volume] in Serum or Plasma [2345-7] 12/05/2024 03:22 PM 326 mg/dL N Blood chemistry[[id number]] Glucose [Mass/volume] in Serum or Plasma [2345-7] 12/05/2024 01:52 PM 188 mg/dL N Blood chemistry[[id number]] Glucose [Mass/volume] in Serum or Plasma [2345-7] 12/05/2024 11:03 AM 288 mg/dL N Blood chemistry[[id number]] Glucose [Mass/volume] in Serum or Plasma [2345-7] 12/04/2024 03:22 PM 378 mg/dL N Blood chemistry[[id number]] Glucose [Mass/volume] in Serum or Plasma [2345-7] 12/04/2024 11:50 AM 326 mg/dL N Blood chemistry[[id number]] Glucose [Mass/volume] in Serum or Plasma [2345-7] 12/04/2024 06:03 PM 318 mg/dL N Blood chemistry[[id number]] Glucose [Mass/volume] in Serum or Plasma [2345-7] 12/04/2024 01:47 PM 346 mg/dL N Blood chemistry[[id number]] Glucose [Mass/volume] in Serum or Plasma [2345-7] 12/03/2024 02:46 PM 300 mg/dL N Blood chemistry[[id number]] Glucose [Mass/volume] in Serum or Plasma [2345-7] 12/03/2024 11:02 AM 398 mg/dL N Blood chemistry[[id number]] Glucose [Mass/volume] in Serum or Plasma [2345-7] 12/03/2024 06:00 PM 400 mg/dL N Blood chemistry[[id number]] Glucose [Mass/volume] in Serum or Plasma [2345-7] 12/03/2024 02:45 PM 270 mg/dL N Blood chemistry[[id number]] Glucose [Mass/volume] in Serum or Plasma [2345-7] 12/02/2024 01:49 PM 281 mg/dL N Blood chemistry[[id number]] Glucose [Mass/volume] in Serum or Plasma [2345-7] 11/25/2024 04:06 PM 385 mg/dL N Blood chemistry[[id number]] Glucose [Mass/volume] in Serum or Plasma [2345-7] 11/25/2024 10:03 AM 267 mg/dL N Blood chemistry[[id number]] Glucose [Mass/volume] in Serum or Plasma [2345-7] 11/25/2024 05:14 PM 222 mg/dL N Blood chemistry[[id number]] Glucose [Mass/volume] in Serum or Plasma [2345-7] 11/25/2024 11:57 AM 215 mg/dL N Blood chemistry[[id number]] Glucose [Mass/volume] in Serum or Plasma [2345-7] 11/24/2024 12:53 PM 213 mg/dL N Blood chemistry[[id number]] Glucose [Mass/volume] in Serum or Plasma [2345-7] 11/24/2024 10:16 AM 395 mg/dL N Blood chemistry[[id number]] Glucose [Mass/volume] in Serum or Plasma [2345-7] 11/24/2024 05:39 PM 222 mg/dL N Blood chemistry[[id number]] Glucose [Mass/volume] in Serum or Plasma [2345-7] 11/24/2024 12:52 PM 275 mg/dL N Blood chemistry[[id number]] Glucose [Mass/volume] in Serum or Plasma [2345-7] 11/23/2024 02:43 PM 248 mg/dL N Blood chemistry[[id number]] Glucose [Mass/volume] in Serum or Plasma [2345-7] 11/23/2024 09:57 AM 193 mg/dL N Blood chemistry[[id number]] Glucose [Mass/volume] in Serum or Plasma [2345-7] 11/23/2024 04:28 PM 218 mg/dL N Blood chemistry[[id number]] Glucose [Mass/volume] in Serum or Plasma [2345-7] 11/23/2024 11:36 AM 256 mg/dL N Blood chemistry[[id number]] Glucose [Mass/volume] in Serum or Plasma [2345-7] 11/22/2024 01:06 PM 359 mg/dL N Blood chemistry[[id number]] Glucose [Mass/volume] in Serum or Plasma [2345-7] 11/22/2024 11:07 AM 312 mg/dL N Blood chemistry[[id number]] Glucose [Mass/volume] in Serum or Plasma [2345-7] 11/22/2024 06:11 PM 294 mg/dL N Blood chemistry[[id number]] Glucose [Mass/volume] in Serum or Plasma [2345-7] 11/22/2024 03:53 PM 258 mg/dL N Blood chemistry[[id number]] Glucose [Mass/volume] in Serum or Plasma [2345-7] 11/21/2024 06:03 PM 246 mg/dL N Blood chemistry[[id number]] Glucose [Mass/volume] in Serum or Plasma [2345-7] 11/21/2024 04:01 PM 335 mg/dL N Blood chemistry[[id number]] Glucose [Mass/volume] in Serum or Plasma [2345-7] 11/21/2024 01:48 PM 227 mg/dL N Blood chemistry[[id number]] Glucose [Mass/volume] in Serum or Plasma [2345-7] 11/21/2024 11:39 AM 156 mg/dL N Blood chemistry[[id number]] Glucose [Mass/volume] in Serum or Plasma [2345-7] 11/20/2024 01:20 PM 364 mg/dL N Blood chemistry[[id number]] Glucose [Mass/volume] in Serum or Plasma [2345-7] 11/20/2024 10:11 AM 338 mg/dL N Blood chemistry[[id number]] Glucose [Mass/volume] in Serum or Plasma [2345-7] 11/20/2024 04:41 PM 250 mg/dL N Blood chemistry[[id number]] Glucose [Mass/volume] in Serum or Plasma [2345-7] 11/20/2024 12:21 PM 268 mg/dL N Blood chemistry[[id number]] Glucose [Mass/volume] in Serum or Plasma [2345-7] 11/19/2024 05:30 PM 208 mg/dL N Blood chemistry[[id number]] Glucose [Mass/volume] in Serum or Plasma [2345-7] 11/19/2024 03:47 PM 181 mg/dL N Blood chemistry[[id number]] Glucose [Mass/volume] in Serum or Plasma [2345-7] 11/19/2024 12:22 PM 292 mg/dL N Blood chemistry[[id number]] Glucose [Mass/volume] in Serum or Plasma [2345-7] 11/19/2024 09:40 AM 249 mg/dL N Blood chemistry[[id number]] Glucose [Mass/volume] in Serum or Plasma [2345-7] 11/18/2024 01:02 PM 374 mg/dL N Blood chemistry[[id number]] Glucose [Mass/volume] in Serum or Plasma [2345-7] 11/18/2024 10:21 AM 232 mg/dL N Allergies, adverse reactions, alerts No known allergies and adverse reactions Immunizations Vaccine Route Date Status Influenza Vaccine Unassigned Route of Administration 1 Completed Pneumococcal Vaccine Unassigned Route of Administratio n 07/30/2023 Completed Influenza Vaccine Unassigned Route of Administration 0 11/17/2024 Refused COVID-19 Vaccine Unassigned Route of Administration Refused COVID-19 Vaccine Unassigned Route of Administration Refused Medications Medication Instructions Route Dosage Frequency Start Date Stop Date Indications Status Abrysvo (rsv vac, pref a and pref b(pf)) 120 mcg/0.5 mL recon soln (Abrysvo (rsv vac, pref a and pref b(pf))) 0.5ml, intramuscular , Once - One Time, Clinical indication: RSV vaccination intramuscu lar 1.0 06/21 Active Afluria Qd (3yr up)(PF) (flu vac [id number] 36mos up(pf)) 60 mcg (15 mcg x 4)/0.5 mL syringe (Afluria Qd (3yr up)(PF) (flu vac [id number] 36mos up(pf))) 0.5ml, intramuscular , Once - [...] clinical indication: UTI oral 1.0 12.0 h 06/214 Other obstructive and reflux uropathy Active Bactoshield [...] Twice A Day oral 1.0 12.0 h 06/214 Active Dulcolax (bisacodyl) (bisacodyl) 10 mg suppository [...] rising and [facility]/24 Active oxycodone 5 mg [...] glargine-yfgn) 12 units, subcutaneous, Once A [facility] 1.0 1.0 d 11/21 Active insulin [...] Once A Day oral 1.0 1.0 d 12/215 Active docusate sodium 100 mg tablet (docusate [...] subcutaneous, Once A Day, TI for Lantus subcutaneo us 1.0 1.0 d 12/21 Active insulin [...] Bedtime oral 1.0 12/21 Active Thera-M (multivitamin,t b-itwe-xh-fa-mi n) 27-0.4 mg tablet (Thera-M (multivitamin,t d-xzpf-ya-fa-mi n)) 1 tab, oral, Once A Day, TI for multivitamin with folic acid oral 1.0 1.0 d 12/05 Active vancomycin 1,000 mg recon soln (vancomycin) 1000mg, intravenous, Every 18 Hours, For 42 days, [facility] to dose. intravenou s 1.0 18.0 h 02/28/ 2025 03/11 /2025 Active ceftriaxone 1 gram recon soln (ceftriaxone) [...] s 1.0 12.0 h 12/01 Active Thera-M (ydkbsdbs-xfg-g dennise fum-folic ac) 19 mg iron- 400 mcg tablet (Thera-M (rumandim-uri-c dennise fum-folic ac)) 1 tab, oral, Once [...] glargine-yfgn) 5 units, subcutaneous, [facility] 1.0 d 2024 Active insulin [...] daysDO NOT GIVE TO RENAL PATIENTS--GO TO DULCOLAHollie ORDERS oral 1.0 72.0 h 2024 Active [...] admission intraderma l 1.0 12/29 Active Thera-M (xurssrzh-nrq-g dennise fum-folic ac) 19 mg iron- 400 mcg tablet (Thera-M (hyreniau-jix-m dennise fum-folic ac)) 1 tab, oral, Once A Day oral 1.0 1.0 d 2024 Active nystatin 100,000 unit/gram powder (nystatin) 1 tab, topical, Every Shift, apply to affected area topical 1.0 8.0 h 2024 Active Tubersol (tuberculin ppd) 5 tub. unit /0.1 mL solution (Tubersol (tuberculin ppd)) 0.1ml, intradermal, Once - One Time - PRN, Administer on the day shift intraderma l 1.0 5 01/06 Active vancomycin 1,000 mg recon soln [...] Day oral 1.0 1.0 d 01/17 Active [facility] (lactobac. rhamnosus gg-inulin) 10 billion cell -200 [...] Bedtime oral 1.0 1.0 d 2024 Active acetaminophen 325 mg tablet (acetaminophen) 2 tabs (650 mg), oral, Every 6 Hours - PRN, for pain or fever oral 1.0 6.0 h 06/14 Active albuterol sulfate 90 mcg/actuation HFA aerosol inhaler (albuterol sulfate) 2 puffs, inhalation, Every 4 Hours - PRN, SOB OR WHEEZING inhalation 1.0 4.0 h 06/14 Active amiodarone 200 mg tablet (amiodarone) 1 tab, oral, Once A Day oral 1.0 1.0 d 06/14 Active atorvastatin 80 mg tablet (atorvastatin) 1 tab, oral, Once A Day oral 1.0 1.0 d 06/14 Active digoxin 125 mcg (0.125 mg) tablet (digoxin) 1 tab, oral, Once A Day oral 1.0 1.0 d 06/14 Active fentanyl 75 mcg/hr patch 72 hour (fentanyl) 1, transdermal, Once A Day Every 3 Days transderma l 1.0 1.0 d 05/16 Active fentanyl 75 mcg/hr patch 72 hour (fentanyl) 1, transdermal, Once A Day Every 3 Days transderma l 1.0 1.0 d 05/29 Active fentanyl 100 mcg/hr patch 72 hour (fentanyl) 1 patch, transdermal, Once A Day Every 3 Days transderma l 1.0 1.0 d 06/14 Active fluticasone propion-salmete rol 100-50 mcg/dose blister with device (fluticasone propion-salmete rol) 1 inhalation, inhalation, Twice A Day, rinse mouth with water and spit after use, TI for Advair HFA inhalation 1.0 12.0 h 06/14 Active fluticasone propionate 50 mcg/actuation spray,suspensio n (fluticasone propionate) 1 spray both nostrils, nasal, Once A Day nasal 1.0 1.0 d 06/14 Active fosfomycin tromethamine 3 gram packet (fosfomycin tromethamine) 1 packet, oral, Once A Day on Mon, Mix as directed oral 1.0 1.0 d 06/14 Active furosemide 20 mg tablet (furosemide) 1 tab, oral, Once A Day oral 1.0 1.0 d 06/14 Active hydrocodone-delphine taminophen 7.5-325 mg tablet (hydrocodone-ac etaminophen) 1 tab, oral, Every 12 Hours - PRN, for pain; exempt R52 oral 1.0 12.0 h 06/14 Active insulin glargine-yfgn 100 unit/mL (3 mL) insulin pen (insulin glargine-yfgn) 15 units, subcutaneous, Once A Day subcutaneo us 1.0 1.0 d 05/29 Active insulin glargine-yfgn 100 unit/mL (3 mL) insulin pen (insulin glargine-yfgn) 25 units, subcutaneous, Once A Day subcutaneo us 1.0 1.0 d 06/14 Active insulin lispro 100 unit/mL insulin pen (insulin lispro) 5 units, subcutaneous, With Meals subcutaneo us 1.0 05/29 Active insulin lispro 100 unit/mL insulin pen (insulin lispro) Per Sliding Scale, subcutaneous, Three Times A [...] x 3 consecutive times or symptomatic call md subcutaneo us 1.0 8.0 h 06/14 Active insulin lispro 100 unit/mL insulin pen (insulin lispro) 10 units, subcutaneous, With Meals subcutaneo us 1.0 06/14 Active metformin 500 mg tablet (metformin) 1 tab, oral, Once A Day oral 1.0 1.0 d 06/14 Active Miralax (polyethylene glycol 3350) 17 gram/dose powder (Miralax (polyethylene glycol 3350)) 17g, oral, Once A Day - PRN, Mix 17gm with 8oz of fluid daily PRN for constipation oral 1.0 1.0 d 06/14 Active nystatin 100,000 unit/gram powder (nystatin) 1 ana, topical, Three Times A Day topical 1.0 8.0 h 06/14 Active omeprazole 20 mg capsule,delayed release(DR/EC) (omeprazole) 1 cap, oral, Once A Day oral 1.0 1.0 d 06/14 Active ondansetron HCl 4 mg tablet (ondansetron HCl) 1 tab, oral, Three Times A Day - PRN, N/V oral 1.0 8.0 h 06/14 Active silver sulfadiazine 1 % cream (silver sulfadiazine) 1 ana, topical, Twice A Day, Sacrum: Cleanse with ns and gauze, apply silvadene cream to buttock and cover with foam dressing q shift topical 1.0 12.0 h 06/14 Active simethicone 125 mg capsule (simethicone) 1 -2 caps, oral, Four Times A Day - PRN, May have 1-2 caps after meals and at HS PRN for gas, but no more than 4 caps in 24hrs. oral 1.0 6.0 h 06/14 Active acetaminophen 325 mg tablet (acetaminophen) 2 tabs (650 mg), oral, Every 6 Hours - PRN, For pain/fever oral 1.0 6.0 h 2024 Active albuterol sulfate 90 mcg/actuation HFA aerosol inhaler (albuterol sulfate) 2 puffs, inhalation, Every 4 Hours - PRN, For SOB or wheezing inhalation 1.0 4.0 h 2024 Active atorvastatin 80 mg tablet (atorvastatin) 1 tab, oral, Once A Day oral 1.0 1.0 d 2024 Active ceftazidime 2 gram recon soln (ceftazidime) 2 gram, intravenous, Every 8 Hours, Through 06/23/25 intravenou s 1.0 8.0 h 06/23 Active digoxin 125 mcg (0.125 mg) tablet (digoxin) 1 tab, oral, Once A Day oral 1.0 1.0 d 2024 Active fentanyl 100 mcg/hr patch 72 hour (fentanyl) 1 patch, transdermal, Every 72 Hours, Remove old patch before placing new patch. transderma l 1.0 72.0 h 2024 Active fluconazole 200 mg tablet (fluconazole) 2 tabs (400 mg), oral, Once A Day, 5 day auto stop per TI oral 1.0 1.0 d 06/19 Active fluticasone propion-salmete rol 100-50 mcg/dose blister with device (fluticasone propion-salmete rol) 1 puff, inhalation, Twice A Day, Have pt rinse mouth with water and spit after use. inhalation 1.0 12.0 h 2024 Active fluticasone propionate 50 mcg/actuation spray,suspensio n (fluticasone propionate) 1 spray, nasal, Once A Day, Each nostril nasal 1.0 1.0 d 2024 Active fosfomycin tromethamine 3 gram packet (fosfomycin tromethamine) 1 packet, oral, Once A Day on Mon, Mix as directed. oral 1.0 1.0 d 2024 Active furosemide 20 mg tablet (furosemide) 1 tab, oral, Once A Day oral 1.0 1.0 d 2024 Active hydrocodone-delphine taminophen 7.5-325 mg tablet (hydrocodone-ac etaminophen) 1 tab, oral, Every 12 Hours - PRN, For pain, exempt R52 oral 1.0 12.0 h 2024 Active insulin glargine-yfgn 100 unit/mL (3 mL) insulin pen (insulin glargine-yfgn) 25 units, subcutaneous, Once A Day subcutaneo us 1.0 1.0 d 2024 Active insulin lispro 100 unit/mL insulin pen (insulin lispro) 10 units, subcutaneous, Before Meals subcutaneo us 1.0 2024 Active metformin 500 mg tablet (metformin) 1 tab, oral, Once A Day oral 1.0 1.0 d 2024 Active Normal Saline Flush (sodium chloride 0.9 %) - syringe (Normal Saline Flush (sodium chloride 0.9 %)) 5ml, injection, Every Shift, Flush with 5ml NS before and after use(SASH) 1.0 8.0 h 2024 Active nystatin 100,000 unit/gram powder (nystatin) 1 ana, topical, Three Times A Day topical 1.0 8.0 h 2024 Active omeprazole 20 mg capsule,delayed release(DR/EC) (omeprazole) 1 cap, oral, Once A Day oral 1.0 1.0 d 2024 Active ondansetron HCl 4 mg tablet (ondansetron HCl) 1 tab, oral, Three Times A Day - PRN, For nausea/vomiti ng, take before meals oral 1.0 8.0 h 2024 Active silver sulfadiazine 1 % cream (silver sulfadiazine) 1 ana, topical, Twice A Day, Apply buttock and cover with foam dressing. topical 1.0 12.0 h 2024 Active simethicone 125 mg capsule (simethicone) 2 caps (250 mg), oral, Before Meals and At Bedtime oral 1.0 2024 Active Vital Signs Date Vital Result Comment 06/21/2024 07:40 AM Temperature (8310-5) 97.6 [degF] Oxygen Saturation (47102-4) 99 % Respiratory Rate (9279-1) 18 /min Heart Rate (8867-4) 105 /min Blood Pressure Systolic (8480-6) 107 mm[Hg] Blood Pressure Diastolic (8462-4) 69 mm[Hg] 06/20/2024 07:31 PM Temperature (8310-5) 98.2 [degF] Oxygen Saturation (11081-5) 95 % Respiratory Rate (9279-1) 20 /min Heart Rate (8867-4) 105 /min Blood Pressure Systolic (8480-6) 104 mm[Hg] Blood Pressure Diastolic (8462-4) 69 mm[Hg] 06/20/2024 07:54 AM Temperature (8310-5) 97.4 [degF] Oxygen Saturation (75967-7) 97 % Respiratory Rate (9279-1) 16 /min Heart Rate (8867-4) 86 /min Blood Pressure Systolic (8480-6) 120 mm[Hg] Blood Pressure Diastolic (8462-4) 74 mm[Hg] 06/19/2024 10:46 PM Temperature (8310-5) 97 [degF] Oxygen Saturation (84706-8) 95 % Respiratory Rate (9279-1) 16 /min Heart Rate (8867-4) 70 /min Blood Pressure Systolic (8480-6) 112 mm[Hg] Blood Pressure Diastolic (8462-4) 78 mm[Hg] 06/19/2024 07:18 AM Temperature (8310-5) 97.3 [degF] Oxygen Saturation (66262-1) 94 % Respiratory Rate (9279-1) 19 /min Heart Rate (8867-4) 68 /min Blood Pressure Systolic (8480-6) 109 mm[Hg] Blood Pressure Diastolic (8462-4) 63 mm[Hg] 06/18/2024 11:55 PM Temperature (8310-5) 98 [degF] Oxygen Saturation (41111-4) 95 % Respiratory Rate (9279-1) 18 /min Heart Rate (8867-4) 70 /min Blood Pressure Systolic (8480-6) 130 mm[Hg] Blood Pressure Diastolic (8462-4) 78 mm[Hg] 06/18/2024 07:37 AM Temperature (8310-5) 98 [degF] Oxygen Saturation (96257-1) 100 % Respiratory Rate (9279-1) 18 /min Heart Rate (8867-4) 97 /min Blood Pressure Systolic (8480-6) 102 mm[Hg] Blood Pressure Diastolic (8462-4) 61 mm[Hg] 06/17/2024 10:05 PM Temperature (8310-5) 98 [degF] Oxygen Saturation (04045-3) 96 % Respiratory Rate (9279-1) 16 /min Heart Rate (8867-4) 76 /min Blood Pressure Systolic (8480-6) 132 mm[Hg] Blood Pressure Diastolic (8462-4) 88 mm[Hg] 06/17/2024 06:57 AM Temperature (8310-5) 97.4 [degF] Oxygen Saturation (62428-0) 93 % Respiratory Rate (9279-1) 16 /min Heart Rate (8867-4) 82 /min Blood Pressure Systolic (8480-6) 108 mm[Hg] Blood Pressure Diastolic (8462-4) 71 mm[Hg] 06/16/2024 08:22 PM Temperature (8310-5) 98.4 [degF] Oxygen Saturation (05431-6) 94 % Respiratory Rate (9279-1) 20 /min Heart Rate (8867-4) 92 /min Blood Pressure Systolic (8480-6) 110 mm[Hg] Blood Pressure Diastolic (8462-4) 79 mm[Hg] 06/14/2024 11:04 PM Body Height (8302-2) 68 [in_us] Body Weight (23342-7) 202 [lb_av] Body Mass Index (69933-7) 30.71 kg/m2 05/25/2024 10:58 AM Body Weight (14485-3) 202.4 [lb_av ] Body Mass Index (25641-8) 30.77 kg/m2 04/20/2024 11:06 AM Body Weight (71244-6) 201 [lb_av] Body Mass Index (56699-9) 30.56 kg/m2 04/13/2024 09:23 AM Body Weight (05911-5) 210.4 [lb_av ] Body Mass Index (34702-3) 31.99 kg/m2 05/04/2024 10:54 AM Body Weight (02432-1) 204 [lb_av] Body Mass Index (39684-0) 31.01 kg/m2 06/16/2024 06:33 AM Body Weight (25186-6) 198 [lb_av] Body Mass Index (13523-3) 30.1 kg/m2 05/05/2024 10:28 AM Body Weight (40057-1) 204 [lb_av] Body Mass Index (22111-3) 31.01 kg/m2 04/04/2024 02:53 PM Body Weight (47103-8) 215 [lb_av] Body Mass Index (12483-7) 32.69 kg/m2 05/18/2024 07:21 AM Body Weight (21399-8) 202.8 [lb_av ] Body Mass Index (40310-6) 30.83 kg/m2 04/12/2024 12:14 PM Body Weight (51852-6) 210 [lb_av] Body Mass Index (33928-1) 31.93 kg/m2 06/05/2024 12:53 PM Body Weight (40451-3) 202.2 [lb_av ] Body Mass Index (85749-8) 30.74 kg/m2 06/15/2024 10:07 AM Body Weight (73640-1) 198.2 [lb_av ] Body Mass Index (15681-3) 30.13 kg/m2 05/08/2024 02:35 PM Body Weight (84959-6) 208.2 [lb_av ] Body Mass Index (20284-7) 31.65 kg/m2 06/17/2024 11:18 AM Body Weight (85845-6) 198 [lb_av] Body Mass Index (04816-5) 30.1 kg/m2 05/10/2024 09:17 AM Body Weight (13945-9) 204.6 [lb_av ] Body Mass Index (96069-5) 31.11 kg/m2 05/07/2024 09:36 AM Body Weight (75757-0) 203.2 [lb_av ] Body Mass Index (37230-4) 30.89 kg/m2 04/27/2024 10:11 AM Body Weight (03212-0) 204.4 [lb_av ] Body Mass Index (20990-7) 31.08 kg/m2 04/08/2024 08:13 PM Body Weight (13627-4) 216 [lb_av] Body Mass Index (01374-2) 32.84 kg/m2 04/01/2024 11:23 AM Body Weight (16926-3) 216 [lb_av] Body Mass Index (35115-8) 32.84 kg/m2 03/30/2024 10:08 AM Body Weight (87276-6) 218.4 [lb_av ] Body Mass Index (53386-3) 33.2 kg/m2 04/02/2024 04:15 PM Body Weight (77987-6) 216 [lb_av] Body Mass Index (78756-8) 32.84 kg/m2 11/18/2024 03:03 PM Temperature (8310-5) 97.7 [degF] Oxygen Saturation (07355-9) 99 % Respiratory Rate (9279-1) 20 /min Heart Rate (8867-4) 91 /min Blood Pressure Systolic (8480-6) 159 mm[Hg] Blood Pressure Diastolic (8462-4) 97 mm[Hg] Body Weight (68468-3) 186.4 [lb_av] Body Mass Index (14470-9) 28.34 kg/m2 11/19/2024 04:19 AM Temperature (8310-5) 98 [degF] Oxygen Saturation (70718-0) 95 % Respiratory Rate (9279-1) 16 /min Heart Rate (8867-4) 70 /min Blood Pressure Systolic (8480-6) 112 mm[Hg] Blood Pressure Diastolic (8462-4) 80 mm[Hg] 11/19/2024 09:48 PM Temperature (8310-5) 98 [degF] Oxygen Saturation (87136-2) 95 % Respiratory Rate (9279-1) 16 /min Heart Rate (8867-4) 70 /min Blood Pressure Systolic (8480-6) 136 mm[Hg] Blood Pressure Diastolic (8462-4) 78 mm[Hg] 11/19/2024 03:05 PM Body Weight (04268-3) 185.8 [lb_av ] Body Mass Index (10162-2) 28.25 kg/m2 11/19/2024 10:46 AM Temperature (8310-5) 98 [degF] Oxygen Saturation (31680-1) 98 % Respiratory Rate (9279-1) 18 /min Heart Rate (8867-4) 79 /min Blood Pressure Systolic (8480-6) 104 mm[Hg] Blood Pressure Diastolic (8462-4) 46 mm[Hg] 11/20/2024 01:08 PM Body Weight (70028-3) 184.2 [lb_av ] Body Mass Index (52824-2) 28 kg/m2 11/20/2024 07:57 AM Temperature (8310-5) 97.3 [degF] Oxygen Saturation (22915-5) 97 % Respiratory Rate (9279-1) 18 /min Heart Rate (8867-4) 96 /min Blood Pressure Systolic (8480-6) 106 mm[Hg] Blood Pressure Diastolic (8462-4) 73 mm[Hg] 11/21/2024 02:24 AM Temperature (8310-5) 97 [degF] Oxygen Saturation (66702-9) 96 % Respiratory Rate (9279-1) 16 /min Heart Rate (8867-4) 80 /min Blood Pressure Systolic (8480-6) 120 mm[Hg] Blood Pressure Diastolic (8462-4) 88 mm[Hg] 11/21/2024 09:25 PM Temperature (8310-5) 97.7 [degF] Oxygen Saturation (30234-2) 93 % Respiratory Rate (9279-1) 20 /min Heart Rate (8867-4) 79 /min Blood Pressure Systolic (8480-6) 104 mm[Hg] Blood Pressure Diastolic (8462-4) 66 mm[Hg] 11/21/2024 05:39 PM Temperature (8310-5) 98.2 [degF] Oxygen Saturation (67094-8) 93 % Respiratory Rate (9279-1) 20 /min Heart Rate (8867-4) 72 /min Blood Pressure Systolic (8480-6) 140 mm[Hg] Blood Pressure Diastolic (8462-4) 68 mm[Hg] 11/22/2024 09:55 AM Temperature (8310-5) 98.1 [degF] Oxygen Saturation (99297-8) 96 % Respiratory Rate (9279-1) 18 /min Heart Rate (8867-4) 67 /min Blood Pressure Systolic (8480-6) 98 mm[Hg] Blood Pressure Diastolic (8462-4) 62 mm[Hg] 11/23/2024 05:54 AM Temperature (8310-5) 96.9 [degF] Oxygen Saturation (75605-8) 96 % Respiratory Rate (9279-1) 18 /min Heart Rate (8867-4) 94 /min Blood Pressure Systolic (8480-6) 120 mm[Hg] Blood Pressure Diastolic (8462-4) 71 mm[Hg] 11/22/2024 06:42 PM Temperature (8310-5) 97.1 [degF] Oxygen Saturation (03399-9) 97 % Respiratory Rate (9279-1) 22 /min Heart Rate (8867-4) 95 /min Blood Pressure Systolic (8480-6) 100 mm[Hg] Blood Pressure Diastolic (8462-4) 52 mm[Hg] 11/24/2024 07:06 AM Temperature (8310-5) 98 [degF] Oxygen Saturation (53129-6) 98 % Respiratory Rate (9279-1) 20 /min Heart Rate (8867-4) 62 /min Blood Pressure Systolic (8480-6) 145 mm[Hg] Blood Pressure Diastolic (8462-4) 65 mm[Hg] 11/23/2024 07:50 PM Temperature (8310-5) 97.1 [degF] Oxygen Saturation (03757-4) 99 % Respiratory Rate (9279-1) 19 /min Heart Rate (8867-4) 60 /min Blood Pressure Systolic (8480-6) 160 mm[Hg] Blood Pressure Diastolic (8462-4) 58 mm[Hg] 11/25/2024 07:04 AM Temperature (8310-5) 97.6 [degF] Oxygen Saturation (44910-1) 96 % Respiratory Rate (9279-1) 18 /min Heart Rate (8867-4) 72 /min Blood Pressure Systolic (8480-6) 142 mm[Hg] Blood Pressure Diastolic (8462-4) 76 mm[Hg] 11/24/2024 08:50 PM Temperature (8310-5) 97 [degF] Oxygen Saturation (10490-0) 95 % Respiratory Rate (9279-1) 16 /min Heart Rate (8867-4) 80 /min Blood Pressure Systolic (8480-6) 130 mm[Hg] Blood Pressure Diastolic (8462-4) 80 mm[Hg] 11/25/2024 10:07 PM Temperature (8310-5) 99.9 [degF] Oxygen Saturation (20631-4) 98 % Respiratory Rate (9279-1) 18 /min Heart Rate (8867-4) 88 /min Blood Pressure Systolic (8480-6) 96 mm[Hg] Blood Pressure Diastolic (8462-4) 70 mm[Hg] 12/03/2024 09:56 AM Temperature (8310-5) 98.1 [degF] Oxygen Saturation (32357-1) 97 % Respiratory Rate (9279-1) 19 /min Heart Rate (8867-4) 83 /min Blood Pressure Systolic (8480-6) 112 mm[Hg] Blood Pressure Diastolic (8462-4) 68 mm[Hg] 12/02/2024 11:39 PM Temperature (8310-5) 97 [degF] Oxygen Saturation (58875-8) 95 % Respiratory Rate (9279-1) 16 /min Heart Rate (8867-4) 70 /min Blood Pressure Systolic (8480-6) 112 mm[Hg] Blood Pressure Diastolic (8462-4) 80 mm[Hg] 12/04/2024 09:15 AM Temperature (8310-5) 98.2 [degF] Oxygen Saturation (20902-7) 98 % Respiratory Rate (9279-1) 20 /min Heart Rate (8867-4) 84 /min Blood Pressure Systolic (8480-6) 138 mm[Hg] Blood Pressure Diastolic (8462-4) 73 mm[Hg] 12/03/2024 09:53 PM Temperature (8310-5) 97 [degF] Oxygen Saturation (30420-5) 95 % Respiratory Rate (9279-1) 16 /min Heart Rate (8867-4) 64 /min Blood Pressure Systolic (8480-6) 138 mm[Hg] Blood Pressure Diastolic (8462-4) 70 mm[Hg] 12/04/2024 09:21 PM Oxygen Saturation (11361-1) 98 % 12/04/2024 09:20 PM Blood Pressure Systolic (8480-6) 1 24 mm[Hg] Blood Pressure Diastolic (8462-4) 80 mm[Hg] 12/04/2024 09:18 PM Temperature (8310-5) 97 [degF] Respiratory Rate (9279-1) 18 /min Heart Rate (8867-4) 80 /min 12/05/2024 06:51 PM Temperature (8310-5) 97.1 [degF] Oxygen Saturation (66394-9) 99 % Respiratory Rate (9279-1) 14 /min Heart Rate (8867-4) 84 /min Blood Pressure Systolic (8480-6) 88 mm[Hg] Blood Pressure Diastolic (8462-4) 53 mm[Hg] 12/05/2024 09:58 AM Temperature (8310-5) 98 [degF] Oxygen Saturation (13365-6) 97 % Respiratory Rate (9279-1) 17 /min Heart Rate (8867-4) 98 /min Blood Pressure Systolic (8480-6) 117 mm[Hg] Blood Pressure Diastolic (8462-4) 78 mm[Hg] 12/06/2024 11:21 AM Temperature (8310-5) 98.1 [degF] Oxygen Saturation (56593-8) 97 % Respiratory Rate (9279-1) 16 /min Heart Rate (8867-4) 70 /min Blood Pressure Systolic (8480-6) 128 mm[Hg] Blood Pressure Diastolic (8462-4) 70 mm[Hg] 12/06/2024 07:51 PM Temperature (8310-5) 97.2 [degF] Oxygen Saturation (08375-2) 97 % Respiratory Rate (9279-1) 16 /min Heart Rate (8867-4) 78 /min Blood Pressure Systolic (8480-6) 88 mm[Hg] Blood Pressure Diastolic (8462-4) 52 mm[Hg] 12/08/2024 10:40 AM Temperature (8310-5) 97.8 [degF] Oxygen Saturation (06789-7) 97 % Respiratory Rate (9279-1) 18 /min Heart Rate (8867-4) 88 /min Blood Pressure Systolic (8480-6) 124 mm[Hg] Blood Pressure Diastolic (8462-4) 66 mm[Hg] 12/08/2024 12:40 AM Temperature (8310-5) 96.8 [degF] Oxygen Saturation (71027-6) 98 % Respiratory Rate (9279-1) 16 /min Heart Rate (8867-4) 85 /min Blood Pressure Systolic (8480-6) 103 mm[Hg] Blood Pressure Diastolic (8462-4) 78 mm[Hg] 12/07/2024 05:24 PM Temperature (8310-5) 97.7 [degF] Oxygen Saturation (71130-3) 92 % Respiratory Rate (9279-1) 20 /min Heart Rate (8867-4) 72 /min Blood Pressure Systolic (8480-6) 114 mm[Hg] Blood Pressure Diastolic (8462-4) 63 mm[Hg] 12/09/2024 07:31 AM Temperature (8310-5) 97.2 [degF] Oxygen Saturation (51702-3) 96 % Respiratory Rate (9279-1) 18 /min Heart Rate (8867-4) 62 /min Blood Pressure Systolic (8480-6) 136 mm[Hg] Blood Pressure Diastolic (8462-4) 72 mm[Hg] 12/09/2024 12:00 AM Temperature (8310-5) 98 [degF] Oxygen Saturation (01497-5) 95 % Respiratory Rate (9279-1) 16 /min Heart Rate (8867-4) 80 /min Blood Pressure Systolic (8480-6) 132 mm[Hg] Blood Pressure Diastolic (8462-4) 87 mm[Hg] 12/09/2024 10:44 PM Temperature (8310-5) 98 [degF] Oxygen Saturation (18208-5) 96 % Respiratory Rate (9279-1) 16 /min Heart Rate (8867-4) 80 /min Blood Pressure Systolic (8480-6) 134 mm[Hg] Blood Pressure Diastolic (8462-4) 80 mm[Hg] 12/10/2024 09:46 PM Temperature (8310-5) 97 [degF] Oxygen Saturation (62277-3) 95 % Respiratory Rate (9279-1) 16 /min Heart Rate (8867-4) 80 /min Blood Pressure Systolic (8480-6) 122 mm[Hg] Blood Pressure Diastolic (8462-4) 70 mm[Hg] 12/10/2024 07:05 AM Temperature (8310-5) 97.6 [degF] Oxygen Saturation (79194-6) 95 % Respiratory Rate (9279-1) 18 /min Heart Rate (8867-4) 62 /min Blood Pressure Systolic (8480-6) 118 mm[Hg] Blood Pressure Diastolic (8462-4) 72 mm[Hg] 12/11/2024 07:29 AM Temperature (8310-5) 97.2 [degF] Oxygen Saturation (31600-0) 96 % Respiratory Rate (9279-1) 18 /min Heart Rate (8867-4) 74 /min Blood Pressure Systolic (8480-6) 118 mm[Hg] Blood Pressure Diastolic (8462-4) 62 mm[Hg] 12/11/2024 10:03 PM Temperature (8310-5) 98 [degF] Oxygen Saturation (80668-9) 95 % Respiratory Rate (9279-1) 16 /min Heart Rate (8867-4) 80 /min Blood Pressure Systolic (8480-6) 132 mm[Hg] Blood Pressure Diastolic (8462-4) 80 mm[Hg] 12/12/2024 08:23 PM Temperature (8310-5) 97.1 [degF] Oxygen Saturation (89266-7) 97 % Respiratory Rate (9279-1) 18 /min Heart Rate (8867-4) 74 /min Blood Pressure Systolic (8480-6) 120 mm[Hg] Blood Pressure Diastolic (8462-4) 80 mm[Hg] 12/12/2024 09:41 AM Temperature (8310-5) 97 [degF] Oxygen Saturation (87372-4) 99 % Respiratory Rate (9279-1) 19 /min Heart Rate (8867-4) 84 /min Blood Pressure Systolic (8480-6) 102 mm[Hg] Blood Pressure Diastolic (8462-4) 73 mm[Hg] 12/13/2024 07:26 AM Temperature (8310-5) 97.1 [degF] Oxygen Saturation (49878-5) 93 % Respiratory Rate (9279-1) 17 /min Heart Rate (8867-4) 80 /min Blood Pressure Systolic (8480-6) 118 mm[Hg] Blood Pressure Diastolic (8462-4) 77 mm[Hg] 12/13/2024 06:27 PM Temperature (8310-5) 97.7 [degF] Oxygen Saturation (10810-0) 97 % Respiratory Rate (9279-1) 17 /min Heart Rate (8867-4) 80 /min Blood Pressure Systolic (8480-6) 115 mm[Hg] Blood Pressure Diastolic (8462-4) 83 mm[Hg] 12/14/2024 08:07 AM Temperature (8310-5) 97.9 [degF] Oxygen Saturation (97837-0) 95 % Respiratory Rate (9279-1) 16 /min Heart Rate (8867-4) 90 /min Blood Pressure Systolic (8480-6) 127 mm[Hg] Blood Pressure Diastolic (8462-4) 62 mm[Hg] 12/14/2024 10:11 PM Temperature (8310-5) 97.5 [degF] Oxygen Saturation (56417-5) 98 % Respiratory Rate (9279-1) 16 /min Heart Rate (8867-4) 85 /min Blood Pressure Systolic (8480-6) 131 mm[Hg] Blood Pressure Diastolic (8462-4) 66 mm[Hg] 12/15/2024 07:10 AM Temperature (8310-5) 98.1 [degF] Oxygen Saturation (70561-9) 97 % Respiratory Rate (9279-1) 18 /min Heart Rate (8867-4) 73 /min Blood Pressure Systolic (8480-6) 145 mm[Hg] Blood Pressure Diastolic (8462-4) 99 mm[Hg] 12/15/2024 09:00 PM Temperature (8310-5) 97 [degF] Oxygen Saturation (30254-3) 99 % Respiratory Rate (9279-1) 20 /min Heart Rate (8867-4) 91 /min Blood Pressure Systolic (8480-6) 118 mm[Hg] Blood Pressure Diastolic (8462-4) 80 mm[Hg] 12/16/2024 12:12 PM Temperature (8310-5) 97.3 [degF] Oxygen Saturation (26388-7) 99 % Respiratory Rate (9279-1) 21 /min Heart Rate (8867-4) 86 /min Blood Pressure Systolic (8480-6) 120 mm[Hg] Blood Pressure Diastolic (8462-4) 78 mm[Hg] 12/17/2024 08:59 AM Temperature (8310-5) 97.6 [degF] Oxygen Saturation (59491-5) 99 % Respiratory Rate (9279-1) 18 /min Heart Rate (8867-4) 66 /min Blood Pressure Systolic (8480-6) 148 mm[Hg] Blood Pressure Diastolic (8462-4) 84 mm[Hg] 12/17/2024 01:51 AM Temperature (8310-5) 97 [degF] Oxygen Saturation (53952-8) 95 % Respiratory Rate (9279-1) 16 /min Heart Rate (8867-4) 70 /min Blood Pressure Systolic (8480-6) 132 mm[Hg] Blood Pressure Diastolic (8462-4) 78 mm[Hg] 12/17/2024 07:59 PM Temperature (8310-5) 98 [degF] Oxygen Saturation (51985-2) 95 % Respiratory Rate (9279-1) 16 /min Heart Rate (8867-4) 70 /min Blood Pressure Systolic (8480-6) 122 mm[Hg] Blood Pressure Diastolic (8462-4) 80 mm[Hg] 12/18/2024 08:44 AM Temperature (8310-5) 97.5 [degF] Oxygen Saturation (57508-0) 99 % Respiratory Rate (9279-1) 14 /min Heart Rate (8867-4) 80 /min Blood Pressure Systolic (8480-6) 111 mm[Hg] Blood Pressure Diastolic (8462-4) 57 mm[Hg] 12/19/2024 05:02 AM Temperature (8310-5) 98 [degF] Oxygen Saturation (69983-7) 98 % Respiratory Rate (9279-1) 16 /min Heart Rate (8867-4) 80 /min Blood Pressure Systolic (8480-6) 120 mm[Hg] Blood Pressure Diastolic (8462-4) 78 mm[Hg] 12/19/2024 01:04 PM Temperature (8310-5) 98.2 [degF] Oxygen Saturation (73402-8) 97 % Respiratory Rate (9279-1) 20 /min Heart Rate (8867-4) 76 /min Blood Pressure Systolic (8480-6) 126 mm[Hg] Blood Pressure Diastolic (8462-4) 76 mm[Hg] 12/19/2024 08:24 PM Temperature (8310-5) 97.5 [degF] Oxygen Saturation (05115-9) 98 % Respiratory Rate (9279-1) 18 /min Heart Rate (8867-4) 82 /min Blood Pressure Systolic (8480-6) 92 mm[Hg] Blood Pressure Diastolic (8462-4) 56 mm[Hg] 12/20/2024 08:20 AM Temperature (8310-5) 97.1 [degF] Oxygen Saturation (83198-5) 97 % Respiratory Rate (9279-1) 16 /min Heart Rate (8867-4) 71 /min Blood Pressure Systolic (8480-6) 113 mm[Hg] Blood Pressure Diastolic (8462-4) 67 mm[Hg] 12/29/2024 12:26 AM Temperature (8310-5) 98.2 [degF] Oxygen Saturation (92683-1) 97 % Respiratory Rate (9279-1) 17 /min Heart Rate (8867-4) 101 /min Blood Pressure Systolic (8480-6) 127 mm[Hg] Blood Pressure Diastolic (8462-4) 84 mm[Hg] Body Weight (40139-1) 185 [lb_av] Body Mass Index (20507-9) 28.13 kg/m2 12/29/2024 06:31 AM Temperature (8310-5) 98.4 [degF] Oxygen Saturation (54006-1) 98 % Respiratory Rate (9279-1) 18 /min Heart Rate (8867-4) 96 /min Blood Pressure Systolic (8480-6) 132 mm[Hg] Blood Pressure Diastolic (8462-4) 58 mm[Hg] 12/29/2024 08:19 PM Temperature (8310-5) 98.3 [degF] Oxygen Saturation (63182-9) 95 % Respiratory Rate (9279-1) 15 /min Heart Rate (8867-4) 104 /min Blood Pressure Systolic (8480-6) 121 mm[Hg] Blood Pressure Diastolic (8462-4) 78 mm[Hg] 12/30/2024 10:28 AM Temperature (8310-5) 97.2 [degF] Oxygen Saturation (70849-6) 98 % Respiratory Rate (9279-1) 20 /min Heart Rate (8867-4) 85 /min Blood Pressure Systolic (8480-6) 113 mm[Hg] Blood Pressure Diastolic (8462-4) 62 mm[Hg] 12/30/2024 10:52 PM Heart Rate (8867-4) 78 /min 12/30/2024 10:51 PM Temperature (8310-5) 97 [degF] Oxygen Saturation (90392-8) 95 % Respiratory Rate (9279-1) 16 /min Blood Pressure Systolic (8480-6) 112 mm[Hg] Blood Pressure Diastolic (8462-4) 80 mm[Hg] 12/31/2024 03:52 PM Temperature (8310-5) 98 [degF] Oxygen Saturation (49168-3) 96 % Respiratory Rate (9279-1) 20 /min Heart Rate (8867-4) 109 /min Blood Pressure Systolic (8480-6) 90 mm[Hg] Blood Pressure Diastolic (8462-4) 71 mm[Hg] 12/31/2024 01:40 PM Body Weight (60216-2) 186 [lb_av] Body Mass Index (15679-8) 28.28 kg/m2 12/31/2024 08:46 PM Temperature (8310-5) 98 [degF] Oxygen Saturation (50704-2) 95 % Respiratory Rate (9279-1) 18 /min Heart Rate (8867-4) 70 /min Blood Pressure Systolic (8480-6) 114 mm[Hg] Blood Pressure Diastolic (8462-4) 80 mm[Hg] 01/01/2025 10:36 AM Temperature (8310-5) 97.8 [degF] Oxygen Saturation (41864-9) 97 % Respiratory Rate (9279-1) 19 /min Heart Rate (8867-4) 95 /min Blood Pressure Systolic (8480-6) 111 mm[Hg] Blood Pressure Diastolic (8462-4) 70 mm[Hg] 01/01/2025 07:41 PM Temperature (8310-5) 98 [degF] Oxygen Saturation (22928-9) 95 % Respiratory Rate (9279-1) 16 /min Heart Rate (8867-4) 88 /min Blood Pressure Systolic (8480-6) 122 mm[Hg] Blood Pressure Diastolic (8462-4) 80 mm[Hg] 01/02/2025 12:59 PM Oxygen Saturation (78940-5) 97 % 01/02/2025 12:57 PM Temperature (8310-5) 97.3 [degF] Respiratory Rate (9279-1) 16 /min Heart Rate (8867-4) 96 /min Blood Pressure Systolic (8480-6) 90 mm[Hg] Blood Pressure Diastolic (8462-4) 60 mm[Hg] 01/02/2025 07:07 PM Temperature (8310-5) 98.6 [degF] Oxygen Saturation (76354-4) 98 % Respiratory Rate (9279-1) 16 /min Heart Rate (8867-4) 111 /min Blood Pressure Systolic (8480-6) 114 mm[Hg] Blood Pressure Diastolic (8462-4) 64 mm[Hg] 01/03/2025 06:28 AM Temperature (8310-5) 97.7 [degF] Oxygen Saturation (01522-1) 96 % Respiratory Rate (9279-1) 19 /min Heart Rate (8867-4) 111 /min Blood Pressure Systolic (8480-6) 116 mm[Hg] Blood Pressure Diastolic (8462-4) 88 mm[Hg] 01/03/2025 11:35 AM Body Weight (35420-8) 182.4 [lb_av ] Body Mass Index (48610-1) 27.73 kg/m2 01/04/2025 12:10 AM Temperature (8310-5) 97.6 [degF] Oxygen Saturation (67217-8) 97 % Respiratory Rate (9279-1) 15 /min Heart Rate (8867-4) 114 /min Blood Pressure Systolic (8480-6) 121 mm[Hg] Blood Pressure Diastolic (8462-4) 82 mm[Hg] 01/04/2025 09:26 AM Temperature (8310-5) 97.3 [degF] Oxygen Saturation (72949-7) 100 % Respiratory Rate (9279-1) 18 /min Heart Rate (8867-4) 84 /min Blood Pressure Systolic (8480-6) 115 mm[Hg] Blood Pressure Diastolic (8462-4) 71 mm[Hg] 01/04/2025 11:29 PM Temperature (10-5) 98.1 [degF] Oxygen Saturation (66607-6) 96 % Respiratory Rate (9279-1) 14 /min Heart Rate (8867-4) 87 /min Blood Pressure Systolic (8480-6) 118 mm[Hg] Blood Pressure Diastolic (8462-4) 70 mm[Hg] 01/05/2025 06:32 AM Temperature (8310-5) 98.6 [degF] Oxygen Saturation (58906-4) 95 % Respiratory Rate (9279-1) 19 /min Heart Rate (8867-4) 72 /min Blood Pressure Systolic (8480-6) 122 mm[Hg] Blood Pressure Diastolic (8462-4) 66 mm[Hg] 01/06/2025 12:39 AM Temperature (8310-5) 98.6 [degF] Oxygen Saturation (28483-2) 97 % Respiratory Rate (9279-1) 18 /min Heart Rate (8867-4) 88 /min Blood Pressure Systolic (8480-6) 110 mm[Hg] Blood Pressure Diastolic (8462-4) 69 mm[Hg] 01/06/2025 06:50 AM Temperature (10-5) 98.2 [degF] Oxygen Saturation (96290-2) 98 % Respiratory Rate (9279-1) 16 /min Heart Rate (8867-4) 80 /min Blood Pressure Systolic (8480-6) 118 mm[Hg] Blood Pressure Diastolic (8462-4) 58 mm[Hg] 01/07/2025 11:02 AM Temperature (8310-5) 98 [degF] Oxygen Saturation (35835-8) 97 % Respiratory Rate (9279-1) 18 /min Heart Rate (8867-4) 65 /min Blood Pressure Systolic (8480-6) 128 mm[Hg] Blood Pressure Diastolic (8462-4) 60 mm[Hg] 01/07/2025 09:35 PM Temperature (8310-5) 98 [degF] Oxygen Saturation (02663-0) 95 % Respiratory Rate (9279-1) 16 /min Heart Rate (8867-4) 78 /min Blood Pressure Systolic (8480-6) 120 mm[Hg] Blood Pressure Diastolic (8462-4) 78 mm[Hg] 01/08/2025 06:38 AM Temperature (8310-5) 98.2 [degF] Oxygen Saturation (23064-9) 96 % Respiratory Rate (9279-1) 18 /min Heart Rate (8867-4) 88 /min Blood Pressure Systolic (8480-6) 132 mm[Hg] Blood Pressure Diastolic (8462-4) 72 mm[Hg] 01/08/2025 08:53 PM Temperature (8310-5) 97 [degF] Oxygen Saturation (38692-0) 95 % Respiratory Rate (9279-1) 16 /min Heart Rate (8867-4) 88 /min Blood Pressure Systolic (8480-6) 132 mm[Hg] Blood Pressure Diastolic (8462-4) 70 mm[Hg] 01/09/2025 10:35 PM Temperature (8310-5) 98.6 [degF] Oxygen Saturation (99168-5) 96 % Respiratory Rate (9279-1) 20 /min Heart Rate (8867-4) 77 /min Blood Pressure Systolic (8480-6) 92 mm[Hg] Blood Pressure Diastolic (8462-4) 71 mm[Hg] 01/09/2025 06:26 PM Temperature (8310-5) 98 [degF] Oxygen Saturation (77836-1) 95 % Respiratory Rate (9279-1) 18 /min Heart Rate (8867-4) 94 /min Blood Pressure Systolic (8480-6) 117 mm[Hg] Blood Pressure Diastolic (8462-4) 89 mm[Hg] 01/10/2025 06:31 AM Temperature (8310-5) 98 [degF] Oxygen Saturation (62803-6) 97 % Respiratory Rate (9279-1) 16 /min Heart Rate (8867-4) 68 /min Blood Pressure Systolic (8480-6) 112 mm[Hg] Blood Pressure Diastolic (8462-4) 68 mm[Hg] 01/10/2025 10:10 PM Temperature (8310-5) 98.1 [degF] Oxygen Saturation (07175-0) 96 % Respiratory Rate (9279-1) 16 /min Heart Rate (8867-4) 75 /min Blood Pressure Systolic (8480-6) 98 mm[Hg] Blood Pressure Diastolic (8462-4) 63 mm[Hg] 01/11/2025 06:36 AM Temperature (8310-5) 97.4 [degF] Oxygen Saturation (91420-8) 97 % Respiratory Rate (9279-1) 19 /min Heart Rate (8867-4) 83 /min Blood Pressure Systolic (8480-6) 120 mm[Hg] Blood Pressure Diastolic (8462-4) 73 mm[Hg] 01/11/2025 08:44 PM Temperature (8310-5) 98.2 [degF] Oxygen Saturation (97557-8) 98 % Respiratory Rate (9279-1) 15 /min Heart Rate (8867-4) 76 /min Blood Pressure Systolic (8480-6) 110 mm[Hg] Blood Pressure Diastolic (8462-4) 62 mm[Hg] 01/12/2025 06:27 AM Temperature (8310-5) 98 [degF] Oxygen Saturation (55457-4) 96 % Respiratory Rate (9279-1) 18 /min Heart Rate (8867-4) 80 /min Blood Pressure Systolic (8480-6) 118 mm[Hg] Blood Pressure Diastolic (8462-4) 66 mm[Hg] 01/12/2025 08:41 PM Temperature (8310-5) 98.2 [degF] Oxygen Saturation (30118-1) 97 % Respiratory Rate (9279-1) 18 /min Heart Rate (8867-4) 95 /min Blood Pressure Systolic (8480-6) 117 mm[Hg] Blood Pressure Diastolic (8462-4) 77 mm[Hg] 01/14/2025 07:48 AM Temperature (8310-5) 97.3 [degF] Oxygen Saturation (82611-6) 96 % Respiratory Rate (9279-1) 19 /min Heart Rate (8867-4) 74 /min Blood Pressure Systolic (8480-6) 111 mm[Hg] Blood Pressure Diastolic (8462-4) 60 mm[Hg] 01/14/2025 02:18 AM Temperature (8310-5) 97 [degF] Oxygen Saturation (13920-7) 96 % Respiratory Rate (9279-1) 16 /min Heart Rate (8867-4) 80 /min Blood Pressure Systolic (8480-6) 132 mm[Hg] Blood Pressure Diastolic (8462-4) 80 mm[Hg] 01/14/2025 09:43 PM Temperature (8310-5) 98 [degF] Oxygen Saturation (96226-7) 95 % Respiratory Rate (9279-1) 16 /min Heart Rate (8867-4) 80 /min Blood Pressure Systolic (8480-6) 124 mm[Hg] Blood Pressure Diastolic (8462-4) 78 mm[Hg] 01/15/2025 07:52 AM Temperature (8310-5) 97.7 [degF] Oxygen Saturation (11172-9) 95 % Respiratory Rate (9279-1) 18 /min Heart Rate (8867-4) 90 /min Blood Pressure Systolic (8480-6) 134 mm[Hg] Blood Pressure Diastolic (8462-4) 70 mm[Hg] 01/15/2025 08:59 PM Temperature (8310-5) 97 [degF] Oxygen Saturation (91027-5) 96 % Respiratory Rate (9279-1) 18 /min Heart Rate (8867-4) 88 /min Blood Pressure Systolic (8480-6) 120 mm[Hg] Blood Pressure Diastolic (8462-4) 78 mm[Hg] 01/16/2025 01:34 PM Temperature (8310-5) 97.1 [degF] Oxygen Saturation (85350-1) 96 % Respiratory Rate (9279-1) 16 /min Heart Rate (8867-4) 77 /min Blood Pressure Systolic (8480-6) 140 mm[Hg] Blood Pressure Diastolic (8462-4) 71 mm[Hg] 01/16/2025 11:40 PM Temperature (8310-5) 98.1 [degF] Oxygen Saturation (31079-8) 94 % Respiratory Rate (9279-1) 15 /min Heart Rate (8867-4) 74 /min Blood Pressure Systolic (8480-6) 107 mm[Hg] Blood Pressure Diastolic (8462-4) 66 mm[Hg] 01/17/2025 10:22 AM Temperature (8310-5) 97.7 [degF] Oxygen Saturation (81064-7) 99 % Respiratory Rate (9279-1) 18 /min Heart Rate (8867-4) 90 /min Blood Pressure Systolic (8480-6) 129 mm[Hg] Blood Pressure Diastolic (8462-4) 87 mm[Hg] 01/18/2025 02:50 AM Temperature (8310-5) 96.8 [degF] Oxygen Saturation (92836-4) 95 % Respiratory Rate (9279-1) 16 /min Heart Rate (8867-4) 90 /min Blood Pressure Systolic (8480-6) 120 mm[Hg] Blood Pressure Diastolic (8462-4) 59 mm[Hg] 01/18/2025 01:05 PM Temperature (8310-5) 97 [degF] Oxygen Saturation (11668-4) 98 % Respiratory Rate (9279-1) 16 /min Heart Rate (8867-4) 86 /min Blood Pressure Systolic (8480-6) 98 mm[Hg] Blood Pressure Diastolic (8462-4) 61 mm[Hg] 01/18/2025 10:57 PM Temperature (8310-5) 97.8 [degF] Oxygen Saturation (85465-3) 90 % Respiratory Rate (9279-1) 17 /min Heart Rate (8867-4) 57 /min Blood Pressure Systolic (8480-6) 103 mm[Hg] Blood Pressure Diastolic (8462-4) 89 mm[Hg] 01/19/2025 06:34 AM Temperature (8310-5) 97.9 [degF] Oxygen Saturation (94794-8) 95 % Respiratory Rate (9279-1) 18 /min Heart Rate (8867-4) 68 /min Blood Pressure Systolic (8480-6) 116 mm[Hg] Blood Pressure Diastolic (8462-4) 61 mm[Hg] 01/19/2025 11:39 PM Temperature (8310-5) 98 [degF] Oxygen Saturation (51287-7) 95 % Respiratory Rate (9279-1) 18 /min Heart Rate (8867-4) 78 /min Blood Pressure Systolic (8480-6) 122 mm[Hg] Blood Pressure Diastolic (8462-4) 88 mm[Hg] 01/20/2025 06:39 AM Temperature (8310-5) 97.5 [degF] Oxygen Saturation (66494-9) 94 % Respiratory Rate (9279-1) 16 /min Heart Rate (8867-4) 66 /min Blood Pressure Systolic (8480-6) 132 mm[Hg] Blood Pressure Diastolic (8462-4) 64 mm[Hg] 01/20/2025 08:18 PM Temperature (8310-5) 98 [degF] Oxygen Saturation (13771-3) 96 % Respiratory Rate (9279-1) 16 /min Heart Rate (8867-4) 70 /min Blood Pressure Systolic (8480-6) 114 mm[Hg] Blood Pressure Diastolic (8462-4) 80 mm[Hg] 01/21/2025 09:27 AM Temperature (8310-5) 97.9 [degF] Oxygen Saturation (43408-1) 100 % Respiratory Rate (9279-1) 20 /min Heart Rate (8867-4) 79 /min Blood Pressure Systolic (8480-6) 109 mm[Hg] Blood Pressure Diastolic (8462-4) 58 mm[Hg] 01/21/2025 08:29 PM Temperature (8310-5) 98.2 [degF] Oxygen Saturation (84785-6) 95 % Respiratory Rate (9279-1) 16 /min Heart Rate (8867-4) 70 /min Blood Pressure Systolic (8480-6) 132 mm[Hg] Blood Pressure Diastolic (8462-4) 80 mm[Hg] 01/22/2025 09:20 AM Temperature (8310-5) 98 [degF] Oxygen Saturation (40124-4) 96 % Respiratory Rate (9279-1) 18 /min Heart Rate (8867-4) 85 /min Blood Pressure Systolic (8480-6) 176 mm[Hg] Blood Pressure Diastolic (8462-4) 85 mm[Hg] 01/22/2025 08:43 PM Temperature (8310-5) 97 [degF] Oxygen Saturation (51061-0) 95 % Respiratory Rate (9279-1) 16 /min Heart Rate (8867-4) 68 /min Blood Pressure Systolic (8480-6) 126 mm[Hg] Blood Pressure Diastolic (8462-4) 80 mm[Hg] 01/23/2025 09:40 AM Temperature (8310-5) 97.8 [degF] Oxygen Saturation (90493-4) 99 % Respiratory Rate (9279-1) 18 /min Heart Rate (8867-4) 76 /min Blood Pressure Systolic (8480-6) 116 mm[Hg] Blood Pressure Diastolic (8462-4) 68 mm[Hg] 01/23/2025 08:02 PM Temperature (8310-5) 97.6 [degF] Oxygen Saturation (41918-1) 98 % Respiratory Rate (9279-1) 18 /min Heart Rate (8867-4) 71 /min Blood Pressure Systolic (8480-6) 151 mm[Hg] Blood Pressure Diastolic (8462-4) 105 mm[Hg] 01/24/2025 07:03 AM Temperature (8310-5) 98 [degF] Oxygen Saturation (86163-2) 97 % Respiratory Rate (9279-1) 16 /min Heart Rate (8867-4) 70 /min Blood Pressure Systolic (8480-6) 132 mm[Hg] Blood Pressure Diastolic (8462-4) 66 mm[Hg] 01/24/2025 07:58 PM Temperature (8310-5) 98.3 [degF] Oxygen Saturation (42316-6) 97 % Respiratory Rate (9279-1) 15 /min Heart Rate (8867-4) 74 /min Blood Pressure Systolic (8480-6) 138 mm[Hg] Blood Pressure Diastolic (8462-4) 93 mm[Hg] 01/25/2025 06:28 AM Temperature (8310-5) 98 [degF] Oxygen Saturation (57887-7) 97 % Respiratory Rate (9279-1) 17 /min Heart Rate (8867-4) 65 /min Blood Pressure Systolic (8480-6) 141 mm[Hg] Blood Pressure Diastolic (8462-4) 85 mm[Hg] 01/25/2025 01:45 PM Body Weight (54304-7) 179.6 [lb_av ] Body Mass Index (24820-7) 27.31 kg/m2 01/25/2025 09:52 PM Temperature (8310-5) 98.3 [degF] Oxygen Saturation (28847-6) 97 % Respiratory Rate (9279-1) 15 /min Heart Rate (8867-4) 77 /min Blood Pressure Systolic (8480-6) 93 mm[Hg] Blood Pressure Diastolic (8462-4) 55 mm[Hg] 01/26/2025 06:34 AM Temperature (8310-5) 98 [degF] Oxygen Saturation (03902-0) 95 % Respiratory Rate (9279-1) 16 /min Heart Rate (8867-4) 70 /min Blood Pressure Systolic (8480-6) 118 mm[Hg] Blood Pressure Diastolic (8462-4) 62 mm[Hg] 01/27/2025 03:23 AM Temperature (8310-5) 97.8 [degF] Oxygen Saturation (37197-9) 94 % Respiratory Rate (9279-1) 18 /min Heart Rate (8867-4) 73 /min Blood Pressure Systolic (8480-6) 120 mm[Hg] Blood Pressure Diastolic (8462-4) 69 mm[Hg] 01/27/2025 09:14 AM Temperature (8310-5) 98.2 [degF] Oxygen Saturation (41435-0) 99 % Respiratory Rate (9279-1) 18 /min Heart Rate (8867-4) 78 /min Blood Pressure Systolic (8480-6) 105 mm[Hg] Blood Pressure Diastolic (8462-4) 60 mm[Hg] 01/27/2025 09:08 PM Temperature (8310-5) 98 [degF] Oxygen Saturation (50666-7) 95 % Respiratory Rate (9279-1) 18 /min Heart Rate (8867-4) 88 /min Blood Pressure Systolic (8480-6) 132 mm[Hg] Blood Pressure Diastolic (8462-4) 78 mm[Hg] 01/28/2025 11:34 AM Temperature (8310-5) 97.7 [degF] Oxygen Saturation (30457-1) 92 % Respiratory Rate (9279-1) 16 /min Heart Rate (8867-4) 70 /min Blood Pressure Systolic (8480-6) 109 mm[Hg] Blood Pressure Diastolic (8462-4) 55 mm[Hg] 01/28/2025 10:17 PM Temperature (8310-5) 97 [degF] Oxygen Saturation (04008-9) 95 % Respiratory Rate (9279-1) 16 /min Heart Rate (8867-4) 88 /min Blood Pressure Systolic (8480-6) 132 mm[Hg] Blood Pressure Diastolic (8462-4) 88 mm[Hg] 01/29/2025 10:28 AM Temperature (8310-5) 97.6 [degF] Oxygen Saturation (68074-9) 94 % Respiratory Rate (9279-1) 22 /min Heart Rate (8867-4) 62 /min Blood Pressure Systolic (8480-6) 122 mm[Hg] Blood Pressure Diastolic (8462-4) 67 mm[Hg] 01/29/2025 08:55 PM Temperature (8310-5) 98 [degF] Oxygen Saturation (63530-5) 96 % Respiratory Rate (9279-1) 18 /min Heart Rate (8867-4) 80 /min Blood Pressure Systolic (8480-6) 132 mm[Hg] Blood Pressure Diastolic (8462-4) 88 mm[Hg] 01/30/2025 10:00 AM Temperature (8310-5) 96.8 [degF] Oxygen Saturation (47942-7) 99 % Respiratory Rate (9279-1) 20 /min Heart Rate (8867-4) 64 /min Blood Pressure Systolic (8480-6) 100 mm[Hg] Blood Pressure Diastolic (8462-4) 68 mm[Hg] 01/31/2025 01:20 AM Temperature (8310-5) 97 [degF] Oxygen Saturation (62034-2) 98 % Respiratory Rate (9279-1) 15 /min Heart Rate (8867-4) 85 /min Blood Pressure Systolic (8480-6) 123 mm[Hg] Blood Pressure Diastolic (8462-4) 62 mm[Hg] 01/31/2025 05:21 PM Temperature (8310-5) 98 [degF] Oxygen Saturation (84365-9) 96 % Respiratory Rate (9279-1) 16 /min Heart Rate (8867-4) 73 /min Blood Pressure Systolic (8480-6) 129 mm[Hg] Blood Pressure Diastolic (8462-4) 68 mm[Hg] 02/01/2025 04:22 AM Respiratory Rate (9279-1) 17 /min Blood Pressure Systolic (8480-6) 128 mm[Hg] Blood Pressure Diastolic (8462-4) 72 mm[Hg] 02/01/2025 04:17 AM Temperature (8310-5) 96.8 [degF] 02/01/2025 05:47 AM Temperature (8310-5) 97 [degF] Oxygen Saturation (38569-9) 96 % Respiratory Rate (9279-1) 18 /min Heart Rate (8867-4) 63 /min Blood Pressure Systolic (8480-6) 115 mm[Hg] Blood Pressure Diastolic (8462-4) 69 mm[Hg] 02/01/2025 04:23 AM Oxygen Saturation (84863-9) 98 % 02/01/2025 04:21 AM Heart Rate (8867-4) 65 /min 02/01/2025 09:44 PM Temperature (8310-5) 97.3 [degF] Heart Rate (8867-4) 65 /min 02/01/2025 09:48 PM Oxygen Saturation (07046-3) 97 % 02/01/2025 09:45 PM Respiratory Rate (9279-1) 17 /min 02/01/2025 09:46 PM Blood Pressure Systolic (8480-6) 1 18 mm[Hg] Blood Pressure Diastolic (8462-4) 67 mm[Hg] 02/02/2025 07:18 AM Body Weight (93491-8) 184.8 [lb_av ] Body Mass Index (45990-2) 28.1 kg/m2 02/02/2025 06:23 AM Temperature (8310-5) 98 [degF] Oxygen Saturation (55021-6) 97 % Respiratory Rate (9279-1) 18 /min Heart Rate (8867-4) 60 /min Blood Pressure Systolic (8480-6) 120 mm[Hg] Blood Pressure Diastolic (8462-4) 62 mm[Hg] 02/02/2025 08:06 PM Temperature (8310-5) 98.3 [degF] Oxygen Saturation (79268-9) 94 % Respiratory Rate (9279-1) 20 /min Heart Rate (8867-4) 62 /min Blood Pressure Systolic (8480-6) 107 mm[Hg] Blood Pressure Diastolic (8462-4) 56 mm[Hg] 02/03/2025 06:12 AM Temperature (8310-5) 98 [degF] Oxygen Saturation (01064-5) 96 % Respiratory Rate (9279-1) 16 /min Heart Rate (8867-4) 66 /min Blood Pressure Systolic (8480-6) 118 mm[Hg] Blood Pressure Diastolic (8462-4) 66 mm[Hg] 02/03/2025 07:26 PM Temperature (8310-5) 98.1 [degF] Oxygen Saturation (75101-1) 95 % Respiratory Rate (9279-1) 14 /min Heart Rate (8867-4) 66 /min Blood Pressure Systolic (8480-6) 112 mm[Hg] Blood Pressure Diastolic (8462-4) 62 mm[Hg] 02/04/2025 06:48 AM Temperature (8310-5) 98.2 [degF] Oxygen Saturation (76752-8) 96 % Respiratory Rate (9279-1) 16 /min Heart Rate (8867-4) 70 /min Blood Pressure Systolic (8480-6) 120 mm[Hg] Blood Pressure Diastolic (8462-4) 68 mm[Hg] 02/04/2025 07:54 PM Temperature (8310-5) 97.1 [degF] Oxygen Saturation (20438-2) 98 % Respiratory Rate (9279-1) 18 /min Heart Rate (8867-4) 62 /min Blood Pressure Systolic (8480-6) 135 mm[Hg] Blood Pressure Diastolic (8462-4) 77 mm[Hg] 02/05/2025 06:25 AM Temperature (8310-5) 97.5 [degF] Oxygen Saturation (62680-6) 94 % Respiratory Rate (9279-1) 16 /min Heart Rate (8867-4) 66 /min Blood Pressure Systolic (8480-6) 120 mm[Hg] Blood Pressure Diastolic (8462-4) 68 mm[Hg] 02/05/2025 08:01 PM Temperature (8310-5) 96.8 [degF] Oxygen Saturation (99392-6) 97 % Respiratory Rate (9279-1) 16 /min Heart Rate (8867-4) 70 /min Blood Pressure Systolic (8480-6) 98 mm[Hg] Blood Pressure Diastolic (8462-4) 61 mm[Hg] 02/06/2025 05:11 PM Temperature (8310-5) 97.1 [degF] Oxygen Saturation (71174-7) 97 % Respiratory Rate (9279-1) 19 /min Heart Rate (8867-4) 70 /min Blood Pressure Systolic (8480-6) 106 mm[Hg] Blood Pressure Diastolic (8462-4) 66 mm[Hg] 04/04/2025 11:32 AM Body Weight (57794-6) 179.4 [lb_av ] Body Mass Index (08378-4) 27.27 kg/m2 06/04/2025 06:28 AM Temperature (8310-5) 98 [degF] Oxygen Saturation (77489-1) 98 % Respiratory Rate (9279-1) 16 /min Heart Rate (8867-4) 84 /min Blood Pressure Systolic (8480-6) 130 mm[Hg] Blood Pressure Diastolic (8462-4) 72 mm[Hg] 03/22/2025 12:49 PM Body Weight (87412-3) 176.3 [lb_av ] Body Mass Index (29679-3) 26.8 kg/m2 05/28/2025 06:58 AM Temperature (8310-5) 98.5 [degF] Oxygen Saturation (25074-8) 97 % Respiratory Rate (9279-1) 15 /min Heart Rate (8867-4) 70 /min Blood Pressure Systolic (8480-6) 125 mm[Hg] Blood Pressure Diastolic (8462-4) 62 mm[Hg] 06/05/2025 06:32 AM Temperature (8310-5) 96 [degF] 06/02/2025 08:17 AM Temperature (8310-5) 97.9 [degF] Oxygen Saturation (96504-1) 98 % Respiratory Rate (9279-1) 18 /min Heart Rate (8867-4) 81 /min Blood Pressure Systolic (8480-6) 131 mm[Hg] Blood Pressure Diastolic (8462-4) 77 mm[Hg] 04/05/2025 01:37 PM Body Weight (68330-6) 180 [lb_av] Body Mass Index (75291-6) 27.37 kg/m2 05/29/2025 03:50 PM Temperature (8310-5) 97.3 [degF] Oxygen Saturation (64917-3) 98 % Respiratory Rate (9279-1) 16 /min Heart Rate (8867-4) 70 /min Blood Pressure Systolic (8480-6) 156 mm[Hg] Blood Pressure Diastolic (8462-4) 66 mm[Hg] 06/03/2025 07:09 PM Temperature (8310-5) 97.6 [degF] 05/30/2025 06:31 AM Temperature (8310-5) 98 [degF] Oxygen Saturation (17179-4) 97 % Respiratory Rate (9279-1) 19 /min Heart Rate (8867-4) 77 /min Blood Pressure Systolic (8480-6) 135 mm[Hg] Blood Pressure Diastolic (8462-4) 72 mm[Hg] 06/05/2025 06:51 AM Oxygen Saturation (71182-2) 99 % Respiratory Rate (9279-1) 16 /min Heart Rate (8867-4) 83 /min Blood Pressure Systolic (8480-6) 122 mm[Hg] Blood Pressure Diastolic (8462-4) 71 mm[Hg] 03/29/2025 08:53 AM Body Weight (12284-0) 176.8 [lb_av ] Body Mass Index (30254-4) 26.88 kg/m2 03/16/2025 02:05 PM Body Weight (05326-8) 177.8 [lb_av ] Body Mass Index (49816-8) 27.03 kg/m2 05/31/2025 10:47 AM Temperature (8310-5) 98.6 [degF] Oxygen Saturation (72759-4) 98 % Respiratory Rate (9279-1) 16 /min Blood Pressure Systolic (8480-6) 132 mm[Hg] Blood Pressure Diastolic (8462-4) 69 mm[Hg] 03/09/2025 09:05 AM Body Weight (93822-5) 176 [lb_av] Body Mass Index (69517-1) 26.76 kg/m2 03/08/2025 02:25 PM Body Weight (74722-4) 176.2 [lb_av ] Body Mass Index (80789-5) 26.79 kg/m2 06/03/2025 09:24 AM Temperature (8310-5) 97.8 [degF] Oxygen Saturation (11578-3) 96 % Respiratory Rate (9279-1) 18 /min Heart Rate (8867-4) 79 /min Blood Pressure Systolic (8480-6) 142 mm[Hg] Blood Pressure Diastolic (8462-4) 68 mm[Hg] 05/27/2025 06:27 AM Oxygen Saturation (65335-4) 96 % Respiratory Rate (9279-1) 16 /min Heart Rate (8867-4) 75 /min Blood Pressure Systolic (8480-6) 120 mm[Hg] Blood Pressure Diastolic (8462-4) 58 mm[Hg] 05/05/2025 10:44 AM Body Weight (72295-9) 180.2 [lb_av ] Body Mass Index (28953-5) 27.4 kg/m2 06/01/2025 06:36 AM Temperature (8310-5) 98 [degF] Oxygen Saturation (83419-6) 99 % Respiratory Rate (9279-1) 16 /min Heart Rate (8867-4) 72 /min Blood Pressure Systolic (8480-6) 129 mm[Hg] Blood Pressure Diastolic (8462-4) 74 mm[Hg] 05/31/2025 06:29 AM Heart Rate (8867-4) 64 /min 03/14/2025 04:47 AM Body Weight (50722-1) 177.4 [lb_av ] Body Mass Index (36872-7) 26.97 kg/m2 06/05/2025 06:52 AM Body Weight (15167-9) 179 [lb_av] Body Mass Index (97678-6) 27.21 kg/m2 06/15/2025 05:13 AM Body Weight (39701-3) 175.6 [lb_av ] Body Mass Index (11644-3) 26.7 kg/m2 06/15/2025 06:40 AM Temperature (8310-5) 98 [degF] Oxygen Saturation (57601-3) 98 % Respiratory Rate (9279-1) 16 /min Heart Rate (8867-4) 75 /min Blood Pressure Systolic (8480-6) 118 mm[Hg] Blood Pressure Diastolic (8462-4) 52 mm[Hg] 06/16/2025 06:41 AM Temperature (8310-5) 98.2 [degF] Oxygen Saturation (16374-2) 97 % Respiratory Rate (9279-1) 18 /min Heart Rate (8867-4) 70 /min Blood Pressure Systolic (8480-6) 122 mm[Hg] Blood Pressure Diastolic (8462-4) 69 mm[Hg] 06/17/2025 01:44 PM Temperature (8310-5) 98.7 [degF] Oxygen Saturation (88829-2) 96 % Respiratory Rate (9279-1) 20 /min Heart Rate (8867-4) 64 /min Blood Pressure Systolic (8480-6) 140 mm[Hg] Blood Pressure Diastolic (8462-4) 61 mm[Hg] 06/18/2025 03:06 PM Temperature (8310-5) 98.5 [degF] Oxygen Saturation (55717-6) 94 % Respiratory Rate (9279-1) 17 /min Heart Rate (8867-4) 60 /min Blood Pressure Systolic (8480-6) 102 mm[Hg] Blood Pressure Diastolic (8462-4) 60 mm[Hg] 06/19/2025 09:33 AM Temperature (8310-5) 98.3 [degF] Oxygen Saturation (42319-0) 96 % Respiratory Rate (9279-1) 20 /min Heart Rate (8867-4) 71 /min Blood Pressure Systolic (8480-6) 173 mm[Hg] Blood Pressure Diastolic (8462-4) 57 mm[Hg] Social History No smoking Hx information [...] 12:42 PM Vinnie N Garcia DO 03 encounter report 11/18/2024 01:0 3 PM - 06/05/2025 10:23 PM Vinnie N Garcia DO 03 Advance Directives Directive Description Verification Date Supporting Document(s) Other Directive
[2025-06-20 01:01] VITALS: BP 157/79; PULSE 68; RESP 18; O2SAT 100
== END 2025-06-20 01:04 | disposition home or self-care (01) ==
LOC: ER 00:52
PROVIDERS: Emergency Provider Emergency Medicine; PCP Family Medicine
DX: T82.898A Other specified complication of vascular prosthetic devices, implants and grafts, initial encounter (principal); Z79.4 Long term (current) use of insulin; Z79.84 Long term (current) use of oral hypoglycemic drugs; I10 Essential (primary) hypertension; Z85.46 Personal history of malignant neoplasm of prostate; E11.40 Type 2 diabetes mellitus with diabetic neuropathy, unspecified; X58.XXXA Exposure to other specified factors, initial encounter
CPT/HCPCS: 71045; 96374; 99284; J1642

== ENCOUNTER 2025-08-06 19:04 | Emergency (ER) | payer OTHER, SELFPAY ==
--- OUTSIDE RECORDS SUMMARY | 2025-03-01 07:30 | XMS_ITS ---
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 Name Role Phone Vinnie Garcia DO Primary Care Provider John Andrews JR [facility] [phone] REASON FOR VISIT [id number] WEEK F/U - UTI Medications Medication SIG (Take, Route, Frequency, Duration) Notes Start Date End Date Status Albuterol Sulfate 108 (90 Base) MCG/ACT Aerosol Powder Breath Activated 1 puff as needed Inhalation every 4 hrs Active Amiodarone HCl 200 MG Tablet 1 tablet Orally Once a day Active Fosfomycin Tromethamine 3 GM Packet as directed Orally 02/01/2025 Active bisacodyl 10 MG Rectal Suppository [Dulcolax] RECTAL *Reorder from [facility] for eRx and Interaction Alerts* 07/23/2023 Active Carvedilol 6.25 MG Tablet 1 tablet with food Orally Twice a day Active traMADol HCl 50 MG Tablet 1 tablet as needed Orally every 6 hours 03/23/2024 Not-Taking ubidecarenone 30 MG Oral Capsule ORAL *Reorder from [facility] for eRx and Interaction Alerts* 07/23/2023 Not-Taking vitamin B12 1 MG Sublingual Tablet *Reorder from [facility] for eRx and Interaction Alerts* 07/23/2023 Not-Taking mometasone furoate 0.05 MG/ACTUAT Metered Dose Nasal [place] *Reorder from [facility] for eRx and Interaction Alerts* 07/23/2023 Not-Taking Tamsulosin HCl 0.4 MG Capsule Oral 07/23/2023 Not-Taking Melatonin 1 MG/4ML Liquid 4 mL at bedtime as needed Orally Once a day Not-Taking metFORMIN HCl 500 MG Tablet Oral 07/23/2023 Not-Taking Methocarbamol 750 MG Oral Tablet ORAL *Reorder from [facility] for eRx and Interaction Alerts* 07/23/2023 Not-Taking MiraLax 17 GM/SCOOP Powder 1 scoop mixed with 8 ounces of fluid Orally Once a day Not-Taking Mometasone Furoate 50 MCG/ACT Suspension 4 sprays (2 sprays in each nostril) Nasally Once a day Not-Taking Gabapentin 400 MG Capsule 1 capsule Orally Once a day Not-Taking insulin aspart, human 100 UNT/ML Injectable Solution [NovoLog] *Reorder from [facility] for eRx and Interaction Alerts* 09/25/2023 Not-Taking Losartan Potassium 50 MG Oral Tablet ORAL *Reorder from [facility] for eRx and Interaction Alerts* 07/23/2023 Not-Taking Fluconazole 200 MG Tablet 1 tablet Orally 03/23/2024 Not-Taking fluticasone propionate 0.1 MG/ACTUAT / salmeterol 0.05 MG/ACTUAT Dry Powder Inhaler INTRAPULMONARY *Reorder from [facility] for eRx and Interaction Alerts* 07/23/2023 Not-Taking Tylenol 325 MG Tablet 1 tablet as needed Orally every 6 hrs 03/23/2024 Active cholecalciferol 1.25 MG Oral Tablet ORAL *Reorder from [facility] for eRx and Interaction Alerts* 07/23/2023 Not-Taking Colace 100 MG Capsule 1 capsule as needed Orally Once a day Not-Taking Diltiazem Hydrochloride 60 MG Oral Tablet ORAL *Reorder from [facility] for eRx and Interaction Alerts* 07/23/2023 Not-Taking Dulcolax 10 MG Suppository 1 suppository as needed Rectal Once a day Not-Taking rivaroxaban 20 MG Oral Tablet [Xarelto] ORAL *Reorder from [facility] for eRx and Interaction Alerts* 07/23/2023 Active Rosuvastatin Calcium 40 MG Oral Tablet ORAL *Reorder from [facility] for eRx and Interaction Alerts* 07/23/2023 Active Tamsulosin HCl 0.4 MG Capsule 1 capsule Orally Once a day Active Pantoprazole Sodium 40 MG Tablet Delayed Release 1 tablet Orally BID 03/23/2024 Active Potassium Chloride ER 10 MEQ Tablet Extended Release 1 tablet with food Orally once daily Active Melatonin 1 MG Oral Tablet ORAL *Reorder from [facility] for eRx and Interaction Alerts* 07/23/2023 Active menthol 0.0044 MG/MG / zinc oxide 0.206 MG/MG Topical Ointment *Reorder from [facility] for eRx and Interaction Alerts* 09/25/2023 Active Metoprolol Tartrate 50 MG Tablet 1 tablet with food Orally Twice a day Active NovoLOG 100 UNIT/ML Solution as directed Injection Active oxyCODONE HCl 5 mg Active Furosemide 20 MG Oral Tablet ORAL *Reorder from [facility] for eRx and Interaction Alerts* 07/23/2023 Active Galantamine Hydrobromide 4 MG Tablet 1 tablet with meals Orally Twice a day Active Insulin Glargine 100 UNIT/ML Solution Pen-injector as directed Subcutaneous Active Linezolid Active Fish Oil 1000 MG Capsule 1 capsule Orally Three times a day Active Coenzyme Q10 10 MG Capsule as directed Orally Active Cranberry 250 MG Tablet as directed Orally Active Finasteride 5 MG Tablet Oral 07/23/2023 Active Encounters Encounter Location Date Provider Diagnosis [facility] [address] [place] [id number] 03/01/2025 John Dnoovan Pyelonephritis N12 ; Unspecified Escherichia coli [E. 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 ; Hydronephrosis, unspecified hydronephrosis type N13.30 ; Ureteral stent present Z96.0 ; Intractable pain R52 and Nephrostomy status Z93.6 Assessments Encounter Date Diagnosis (ICD Code) Assessment Notes Treatment Notes Treatment Clinical Notes Section Notes 03/01/2025 Pyelonephritis (ICD-10 - N12) 1. 74 yo white male with a history of T2DM, COPD, HTN, GERD, HLD, neuropathy, PTSD 2. End-stage contracted bladder and right hydronephrosis, secondary to radiation therapy for prostate cancer - He had placement of nephrostomy tube -5-24- 3-; Exchange of bilateral percutaneous nephrostomy tubes 3. Complicated UTI resolved 02-01-25 4. Discitis, resolved 02-01-25 - although pt has sciatica. Referred back to his PCP 5. Antibiotics: IV Abx completed Day# 42 02-01-25 DC'd IV Vancomycin, Fortaz, Micagungin (start date 12-22-24) day #42 AET 02-01-25 - duration for Discitis is 6 weeks IV - duration complicated marci UTI 3 weeks 6. Prophylaxis; 03-01-25 continue Fosfomycin 1 packet weekly (start date 02-01-25) Labs 01-25-25 W 10.3, Redipper .77, CRP .83 [facility] 03/01/2025 Unspecified Escherichia coli [E. coli] as the cause of diseases classified elsewhere (ICD-10 - B96.20) 1. 74 yo white male with a history of T2DM, COPD, HTN, GERD, HLD, neuropathy, PTSD 2. End-stage contracted bladder and right hydronephrosis, secondary to radiation therapy for prostate cancer - He had placement of nephrostomy tube 03-09-2412-21-24; Exchange of bilateral percutaneous nephrostomy tubes 3. Complicated UTI resolved 02-01-25 4. Discitis, resolved 02-01-25 - although pt has sciatica. Referred back to his PCP 5. Antibiotics: IV Abx completed Day# 42 02-01-25 DC'd IV Vancomycin, Fortaz, Micagungin (start date 12-22-24) day #42 AET 02-01-25 - duration for Discitis is 6 weeks IV - duration complicated marci UTI 3 weeks 6. Prophylaxis; 03-01-25 continue Fosfomycin 1 packet weekly (start date 02-01-25) Labs 01-25-25 W 10.3, Redipper .77, CRP .83 Follow up; [facility] 03/01/2025 Extended spectrum beta lactamase (ESBL) resistance (ICD-10 - Z16.12) 1. 74 yo white male with a history of T2DM, COPD, HTN, GERD, HLD, neuropathy, PTSD 2. End-stage contracted bladder and right hydronephrosis, secondary to radiation therapy for prostate cancer - He had placement of nephrostomy tube 03-09-2412-21-24; Exchange of bilateral percutaneous nephrostomy tubes 3. Complicated UTI resolved 02-01-25 4. Discitis, resolved 02-01-25 - although pt has sciatica. Referred back to his PCP 5. Antibiotics: IV Abx completed Day# 42 02-01-25 DC'd IV Vancomycin, Fortaz, Micagungin (start date 12-22-24) day #42 AET 02-01-25 - duration for Discitis is 6 weeks IV - duration complicated marci UTI 3 weeks 6. Prophylaxis; 03-01-25 continue Fosfomycin 1 packet weekly (start date 02-01-25) Labs 01-25-25 W 10.3, Redipper .77, CRP .83 Follow up; [facility] 03/01/2025 Hydronephrosis, unspecified hydronephrosis type (ICD-10 - N13.30) 1. 74 yo white male with a history of T2DM, COPD, HTN, GERD, HLD, neuropathy, PTSD 2. End-stage contracted bladder and right hydronephrosis, secondary to radiation therapy for prostate cancer - He had placement of nephrostomy tube 03-09-24- 12-21-24; Exchange of bilateral percutaneous nephrostomy tubes 3. Complicated UTI resolved 02-01-25 4. Discitis, resolved 02-01-25 - although pt has sciatica. Referred back to his PCP 5. Antibiotics: IV Abx completed Day# 42 -02-01-25 DC'd IV Vancomycin, Fortaz, Micagungin (start date 12-22-24) day #42 AET 02-01-25 - duration for Discitis is 6 weeks IV - duration complicated marci UTI 3 weeks 6. Prophylaxis; 03-01-25 continue Fosfomycin 1 packet weekly (start date 02-01-25) Labs 01-25-25 W 10.3, Redipper .77, CRP .83 Follow up; [facility] 03/01/2025 Ureteral stent present (ICD-10 - Z96.0) 1. 74 yo white male with a history of T2DM, COPD, HTN, GERD, HLD, neuropathy, PTSD 2. End-stage contracted bladder and right hydronephrosis, secondary to radiation therapy for prostate cancer - He had placement of nephrostomy tube 03-09-24- 12-21-24; Exchange of bilateral percutaneous nephrostomy tubes 3. Complicated UTI resolved 02-01-25 4. Discitis, resolved 02-01-25 - although pt has sciatica. Referred back to his PCP 5. Antibiotics: IV Abx completed Day# 42 02-01-25 DC'd IV Vancomycin, Fortaz, Micagungin (start date 12-22-24) day #42 AET 02-01-25 - duration for Discitis is 6 weeks IV - duration complicated marci UTI 3 weeks 6. Prophylaxis; 03-01-25 continue Fosfomycin 1 packet weekly (start date 02-01-25) Labs 01-25-25 W 10.3, Redipper .77, CRP .83 Follow up; [facility] 03/01/2025 Intractable pain (ICD-10 - R52) 1. 74 yo white male with a history of T2DM, COPD, HTN, GERD, HLD, neuropathy, PTSD 2. End-stage contracted bladder and right hydronephrosis, secondary to radiation therapy for prostate cancer - He had placement of nephrostomy tube 03-09-24- 12-21-24; Exchange of bilateral percutaneous nephrostomy tubes 3. Complicated UTI resolved 02-01-25 4. Discitis, resolved 02-01-25 - although pt has sciatica. Referred back to his PCP 5. Antibiotics: IV Abx completed Day# 42 02-01-25 DC'd IV Vancomycin, Fortaz, Micagungin (start date 12-22-24) day #42 AET 02-01-25 - duration for Discitis is 6 weeks IV - duration complicated marci UTI 3 weeks 6. Prophylaxis; 03-01-25 continue Fosfomycin 1 packet weekly (start date 02-01-25) Labs 01-25-25 W 10.3, Redipper .77, CRP .83 [facility] 03/01/2025 Nephrostomy status (ICD-10 - Z93.6) 1. 74 yo white male with a history of T2DM, COPD, HTN, GERD, HLD, neuropathy, PTSD 2. End-stage contracted bladder and right hydronephrosis, secondary to radiation therapy for prostate cancer - He had placement of nephrostomy tube 03-09-24- 12-21-24; Exchange of bilateral percutaneous nephrostomy tubes 3. Complicated UTI resolved 02-01-25 4. Discitis, resolved 02-01-25 - although pt has sciatica. Referred back to his PCP 5. Antibiotics: IV Abx completed Day# 42 02-01-25 DC'd IV Vancomycin, Fortaz, Micagungin (start date 12-22-24) day #42 AET 02-01-25 - duration for Discitis is 6 weeks IV - duration complicated marci UTI 3 weeks 6. Prophylaxis; -03-01-25 continue Fosfomycin 1 packet weekly (start date 02-01-25) Labs 01-25-25 W 10.3, Redipper .77, CRP .83 Follow up; [facility] Plan Of Treatment Next Appt Details Provider Name:John buchanan, 08/15/2025 01:00:00 PM, [address] [place] [address], [place], [address], Provider Name:Ila Godwin, 10/24/2025 01:00:00 PM, [address] , [address], [id number], Progress Notes * Raphael DEAL DDOB:1949 (75 yo M)Acc No.[id number]:03/01/2025 Progress Notes Patient: Raphael Meyer Felisa Provider: Lavern Man MD :1950 A ge:75 Y S ex:Male Date:03/01/2025 Address:[address] [place] [address] , [facility], [id number] Pcp:Vinnie Garcia, DO Subjective: * Chief Complaints: * [id number] WEEK F/U - UTI * HPI: P roblade Note: HFU 74-year-old male who was admitted for urosepsis at [place] 03/2024, history of COPD, BPH, 2DM, GRC, HTN, alzheimer's. He has a history of very small noncompliant bladder that is secondary to external beam radiation therapy for prostate cancer. He has a h/o Right ureteral stent exchange on March 08, 2024. This was secondary to end-stage contracted bladder and right hydronephrosis.Last seen in clinic here with Dr. Man April 2024. He was to follow-up with [facility] for ileal conduit. He was told he was not medically stable for further procedures. He is present with his daughter today reports he has recently been released from [facility] for sepsis reports he had infection in his back colon and kidneys. He was seen by Dr. Cartwright this morning, the last time his percutaneous nephrostomy tubes were changed was May 2024. Patient is tearful during visit reports increased back pain abdominal pain and hip pain. Medication list reviewed from nursing facility he is on vancomycin and Rocephin IV. 01-25-25; HFU - he was sent to the ER from the clinic for intractable pain and admitted from 12-20-24 through 12-28-24. 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 He has bilateral hydronephrosis with continued bilateral percutaneous nephrostomy tubes he will have these tubes changed every 3 months. Urology evaluated patient, he will have a repeat CT scan in 3 months of the neoplasm of the right kidney/ureter. His IV antibiotics were continued for discitis and pyelonephritis. He remains at the nursing facility, his pain is a 3 out of 10 today he is feeling significantly better, doing well with his IV antibiotics. 02-01-25; right hip pain radiating to the front. 03-01-25;. * Medications: T akingAlbuterol Sulfate 108 (90 Base) MCG/ACT Aerosol Powder Breath Activated 1 puff as needed Inhalation every 4 hrs Amiodarone HCl 200 MG Tablet 1 tablet Orally Once a day bisacodyl 10 MG Rectal Suppository [Dulcolax] RECTAL , Notes to Pharmacist: *Reorder from [facility] for eRx and Interaction Alerts*Carvedilol 6.25 MG Tablet 1 tablet with food Orally Twice a day Coenzyme Q10 10 MG Capsule as directed Orally Cranberry 250 MG Tablet as directed Orally Finasteride 5 MG Tablet Oral Fish Oil 1000 MG Capsule 1 capsule Orally Three times a day Furosemide 20 MG Oral Tablet ORAL , Notes to Pharmacist: *Reorder from [facility] for eRx and Interaction Alerts*Galantamine Hydrobromide 4 MG Tablet 1 tablet with meals Orally Twice a day Insulin Glargine 100 UNIT/ML Solution Pen-injector as directed Subcutaneous Linezolid Melatonin 1 MG Oral Tablet ORAL , Notes to Pharmacist: *Reorder from [facility] for eRx and Interaction Alerts*menthol 0.0044 MG/MG / zinc oxide 0.206 MG/MG Topical Ointment , stop date 06/30/2025, Notes to Pharmacist: *Reorder from [facility] for eRx and Interaction Alerts*Metoprolol Tartrate 50 MG Tablet 1 tablet with food Orally Twice a day NovoLOG 100 UNIT/ML Solution as directed Injection oxyCODONE HCl , Notes to Pharmacist: 5 mgPantoprazole Sodium 40 MG Tablet Delayed Release 1 tablet Orally BID Potassium Chloride ER 10 MEQ Tablet Extended Release 1 tablet with food Orally once daily rivaroxaban 20 MG Oral Tablet [Xarelto] ORAL , Notes to Pharmacist: *Reorder from [facility] for eRx and Interaction Alerts*Rosuvastatin Calcium 40 MG Oral Tablet ORAL , Notes to Pharmacist: *Reorder from [facility] for eRx and Interaction Alerts*Tamsulosin HCl 0.4 MG Capsule 1 capsule Orally Once a day Tylenol 325 MG Tablet 1 tablet as needed Orally every 6 hrs Fosfomycin Tromethamine 3 GM Packet as directed Orally Taking Albuterol Sulfate 108 (90 Base) MCG/ACT Aerosol Powder Breath Activated 1 puff as needed Inhalation every 4 hrs Taking Amiodarone HCl 200 MG Tablet 1 tablet Orally Once a day Taking bisacodyl 10 MG Rectal Suppository [Dulcolax] RECTAL , Notes to Pharmacist: *Reorder from [facility] for eRx and Interaction Alerts*Taking Carvedilol 6.25 MG Tablet 1 tablet with food Orally Twice a day Taking Coenzyme Q10 10 MG Capsule as directed Orally Taking Cranberry 250 MG Tablet as directed Orally Taking Finasteride 5 MG Tablet Oral Taking Fish Oil 1000 MG Capsule 1 capsule Orally Three times a day Taking Furosemide 20 MG Oral Tablet ORAL , Notes to Pharmacist: *Reorder from [facility] for eRx and Interaction Alerts*Taking Galantamine Hydrobromide 4 MG Tablet 1 tablet with meals Orally Twice a day Taking Insulin Glargine 100 UNIT/ML Solution Pen-injector as directed Subcutaneous Taking Linezolid Taking Melatonin 1 MG Oral Tablet ORAL , Notes to Pharmacist: *Reorder from [facility] for eRx and Interaction Alerts*Taking menthol 0.0044 MG/MG / zinc oxide 0.206 MG/MG Topical Ointment , stop date 06/30/2025, Notes to Pharmacist: *Reorder from [facility] for eRx and Interaction Alerts*Taking Metoprolol Tartrate 50 MG Tablet 1 tablet with food Orally Twice a day Taking NovoLOG 100 UNIT/ML Solution as directed Injection Taking oxyCODONE HCl , Notes to Pharmacist: 5 mgTaking Pantoprazole Sodium 40 MG Tablet Delayed Release 1 tablet Orally BID Taking Potassium Chloride ER 10 MEQ Tablet Extended Release 1 tablet with food Orally once daily Taking rivaroxaban 20 MG Oral Tablet [Xarelto] ORAL , Notes to Pharmacist: *Reorder from [facility] for eRx and Interaction Alerts*Taking Rosuvastatin Calcium 40 MG Oral Tablet ORAL , Notes to Pharmacist: *Reorder from [facility] for eRx and Interaction Alerts*Taking Tamsulosin HCl 0.4 MG Capsule 1 capsule Orally Once a day Taking Tylenol 325 MG Tablet 1 tablet as needed Orally every 6 hrs Taking Fosfomycin Tromethamine 3 GM Packet as directed Orally Not-Takingcholecalciferol 1.25 MG Oral Tablet ORAL , Notes to Pharmacist: *Reorder from [facility] for eRx and Interaction Alerts*Colace 100 MG Capsule 1 capsule as needed Orally Once a day Diltiazem Hydrochloride 60 MG Oral Tablet ORAL , Notes to Pharmacist: *Reorder from [facility] for eRx and Interaction Alerts*Dulcolax 10 MG Suppository 1 suppository as needed Rectal Once a day Fluconazole 200 MG Tablet 1 tablet Orally fluticasone propionate 0.1 MG/ACTUAT / salmeterol 0.05 MG/ACTUAT Dry Powder Inhaler INTRAPULMONARY , Notes to Pharmacist: *Reorder from [facility] for eRx and Interaction Alerts*Gabapentin 400 MG Capsule 1 capsule Orally Once a day insulin aspart, human 100 UNT/ML Injectable Solution [NovoLog] , stop date 11/03/2027, Notes to Pharmacist: *Reorder from [facility] for eRx and Interaction Alerts*Losartan Potassium 50 MG Oral Tablet ORAL , Notes to Pharmacist: *Reorder from [facility] for eRx and Interaction Alerts*Melatonin 1 MG/4ML Liquid 4 mL at bedtime as needed Orally Once a day metFORMIN HCl 500 MG Tablet Oral Methocarbamol 750 MG Oral Tablet ORAL , Notes to Pharmacist: *Reorder from [facility] for eRx and Interaction Alerts*MiraLax 17 GM/SCOOP Powder 1 scoop mixed with 8 ounces of fluid Orally Once a day Mometasone Furoate 50 MCG/ACT Suspension 4 sprays (2 sprays in each nostril) Nasally Once a day mometasone furoate 0.05 MG/ACTUAT Metered Dose Nasal [place] , Notes to Pharmacist: *Reorder from [facility] for eRx and Interaction Alerts*Tamsulosin HCl 0.4 MG Capsule Oral traMADol HCl 50 MG Tablet 1 tablet as needed Orally every 6 hours ubidecarenone 30 MG Oral Capsule ORAL , Notes to Pharmacist: *Reorder from [facility] for eRx and Interaction Alerts*vitamin B12 1 MG Sublingual Tablet , Notes to Pharmacist: *Reorder from [facility] for eRx and Interaction Alerts*Not-Taking cholecalciferol 1.25 MG Oral Tablet ORAL , Notes to Pharmacist: *Reorder from [facility] for eRx and Interaction Alerts*Not-Taking Colace 100 MG Capsule 1 capsule as needed Orally Once a day Not-Taking Diltiazem Hydrochloride 60 MG Oral Tablet ORAL , Notes to Pharmacist: *Reorder from [facility] for eRx and Interaction Alerts*Not-Taking Dulcolax 10 MG Suppository 1 suppository as needed Rectal Once a day Not-Taking Fluconazole 200 MG Tablet 1 tablet Orally Not-Taking fluticasone propionate 0.1 MG/ACTUAT / salmeterol 0.05 MG/ACTUAT Dry Powder Inhaler INTRAPULMONARY , Notes to Pharmacist: *Reorder from [facility] for eRx and Interaction Alerts*Not-Taking Gabapentin 400 MG Capsule 1 capsule Orally Once a day Not-Taking insulin aspart, human 100 UNT/ML Injectable Solution [NovoLog] , stop date 11/03/2027, Notes to Pharmacist: *Reorder from [facility] for eRx and Interaction Alerts*Not-Taking Losartan Potassium 50 MG Oral Tablet ORAL , Notes to Pharmacist: *Reorder from [facility] for eRx and Interaction Alerts*Not-Taking Melatonin 1 MG/4ML Liquid 4 mL at bedtime as needed Orally Once a day Not-Taking metFORMIN HCl 500 MG Tablet Oral Not-Taking Methocarbamol 750 MG Oral Tablet ORAL , Notes to Pharmacist: *Reorder from [facility] for eRx and Interaction Alerts*Not-Taking MiraLax 17 GM/SCOOP Powder 1 scoop mixed with 8 ounces of fluid Orally Once a day Not-Taking Mometasone Furoate 50 MCG/ACT Suspension 4 sprays (2 sprays in each nostril) Nasally Once a day Not-Taking mometasone furoate 0.05 MG/ACTUAT Metered Dose Nasal [place] , Notes to Pharmacist: *[facility] and Interaction Alerts*Not-Taking Tamsulosin HCl 0.4 MG Capsule Oral Not- Taking traMADol HCl 50 MG Tablet 1 tablet as needed Orally every 6 hours Not-Taking ubidecarenone 30 MG Oral Capsule ORAL , Notes to Pharmacist: *Reorder from [facility] for eRx and Interaction Alerts*Not-Taking vitamin B12 1 MG Sublingual Tablet , Notes to Pharmacist: *[facility] and Interaction Alerts* Assessment: * Assessment: 1. P yelonephritis - N12 (Primary) 2 . U nspecified Escherichia coli [E. coli] as the cause of diseases classified elsewhere - B96.20 3 . E xtended spectrum beta lactamase (ESBL) resistance - Z16.12 4 . H ydronephrosis, unspecified hydronephrosis type - N13.30 5 . U reteral stent present - Z96.0 6 . I ntractable pain - R52 7 . N ephrostomy status - Z93.6 1. 74 yo white male with a h istory of T2DM, COPD, HTN, GERD, HLD, neuropathy, PTSD 2. End-stage contracted bladder and right hydronephrosis, secondary to radiation therapy for prostate cancer - He had placement of nephrostomy tube 03-09-24- 12-21-24; Exchange of bilateral percutaneous nephrostomy tubes 3. Complicated UTI resolved 02-01-25 4. Discitis, resolved 02-01-25 - although pt has sciatica. Referred back to his PCP 5. Antibiotics: IV Abx completed Day# 42 -02-01-25 DC'd IV Vancomycin, Fortaz, Micagungin (start date 12-22-24) day #42 AET 02-01-25 - duration for Discitis is 6 weeks IV - duration complicated marci UTI 3 weeks 6. Prophylaxis; -03-01-25 continue Fosfomycin 1 packet weekly (start date 02-01-25) Labs 01-25-25 W 10.3, Redipper .77, CRP .83 Follow up; [facility] Billing Information: * Procedure Codes: Care Plan Details* * Electronic signature of Lisa Man JR, MD on 08/06/2025 at 07:10 PM [facility] Sign off status: Pending * Provider: Lavern Man MD Date: 0 03/01/2025 Generated for Nai irwin/Cyndie/Abdonitting on: 1 10/06/2024 07:10 PM E [facility]
--- OUTSIDE RECORDS SUMMARY | 2025-03-22 04:00 | XMS_ITS ---
Author Organization [facility] Address [address] [place] [address] Care Team Providers Care Recreation Therapist Name Role Phone Vinnie Garcia DO Primary Care Provider John Andrews JR Unavailable [phone] Ila Fischer Unavailable REASON FOR VISIT 3m f/u w Christelle Encounters Encounter Location Date Provider Diagnosis [facility] [address] [place] [address] [facility] [address] [place] [address] 03/22/2025 Ila Fischer Plan Of Treatment Next Appt Details Provider Name:John buchanan, 08/15/2025 01:00:00 PM, [address] [facility], [facility], [place], [address], Provider Name:Ila Godwin, 10/24/2025 01:00:00 PM, [address] , [facility] [address], [place], [address], History and Physical Notes * HPI (History [...] June 13, 2024. He was referred to [facility]. He was told he was not [...] nephrostomy tube exchange with interventional radiology at [facility]. He was to have CBC, CMP, PSA [...] * Raphael DEAL DDOB:1949 (75 yo M)Acc No.[id number]:03/22/2025 Progress Notes Patient: Raphael Meyer Provider: WALT Rod :1950 A ge:75 Y S ex:Male Date:03/22/2025 Address:[address], [place] [id number] Pcp:Vinnie Garcia, Subjective: * Chief Complaints: * 3 m f/u w Christelle * HPI: P tom Note: 74 year old male who presents to the clinic for follow up Last seen in December [address] 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 He was referred to [facility]. He was told he was not [...] nephrostomy tube exchange with interventional radiology at [facility]. He was to have CBC, CMP, PSA [...] * Electronic signature of WALT Wall on 08/06/2025 at 07:11 PM FORGING MACHINE HAND Sign off status: Pending * Provider: WALT Rod Date: 0 03/22/2025 Generated for Nai irwin/Cyndie/Yann on: 1 10/06/2024 07:11 PM FORGING MACHINE HAND
--- OUTSIDE RECORDS SUMMARY | 2025-06-28 08:10 | XMS_ITS ---
Author Organization [facility] Address [address] [place] [address] Care Team Providers Care Lbd Teacher Name Role Phone Vinnie Garcia DO Primary Care Provider John Andrews JR Unavailable [phone] Ila Fischer Unavailable REASON FOR VISIT 3m f/u w CT abd,/pelv w/o, cbc, cmp. Encounters Encounter Location Date Provider Diagnosis [facility] [address] [address] 06/28/2025 Ila Fischer Plan Of Treatment Next Appt Details Provider Name:John buchanan, 08/15/2025 01:00:00 PM, [address] [place] [address], [facility], [place], [address], Provider Name:Ila Godwin, 10/24/2025 01:00:00 PM, [address] [place] [address] , [place] [address], [place], [address], Progress Notes * Raphael DEAL DDOB:1949 (75 yo M)Acc No.[id number]:06/28/2025 Progress Notes Patient: Felisa Raphael petit Provider: WALT Rod :1950 A ge:75 Y S ex:Male Date:06/28/2025 Address:[address], [place] Pcp:Vinnie Garcia DO Subjective: * Chief Complaints: * 3 m f/u w CT abd,/pelv w/o, cbc, cmp. Billing Information: * Procedure Codes: * Electronic signature of WALT Wall on 08/06/2025 at 07:10 PM STATISTICAL MACHINE SERVICER Sign off status: Pending * Provider: WALT Rod Date: 0 06/28/2025 Generated for Nai López/Yann on: 10/06/2024 07:10 PM STATISTICAL MACHINE SERVICER
[2025-08-06] VITALS (10 sets, daily range): BP systolic 110–146; BP diastolic 63–77; PULSE 77–90; RESP 20; TEMP 36.8; O2SAT 92–100; BMI 26.4
--- OUTSIDE RECORDS SUMMARY | 2025-08-06 19:10 | XMS_ITS | CCD ---
Author Name Interface, I4Rckoaaj lity Address [place], [facility] [place] [address] Organization [facility] Address [facility], [facility] [place] [address] Reason for Visit Social History Date Name Value 04/12/2025 Sex Male
--- OUTSIDE RECORDS SUMMARY | 2025-08-06 19:10 | XMS_ITS | Data Portability ---
Author Organization [facility] Address [address] [place] [address] [address] [place] [address] Assessment No assessment recorded. Plan of Treatment [...] Modified By Organization Details Last Modified Time 04/10/2025 [id number] D/c several meds that could be contributing to pain. Vitals stable. [email or web address] Not available 04/10/2025 16:17:58 05/29/2025 [id number] Sugars too high. Increase glargine to 25 and lispro to 10 units. Pain uncontrolled, will increase fentanyl to 100mcg. [email or web address] Not available 05/29/2025 15:26:32 06/15/2025 [id number] will request records from [facility]; doing well; pain controlled; Labs on Thursday. Not available 06/19/2025 14:46:41 06/22/2025 [id number] patient evaluate d in ER as PICC line was occluded. Replaced and working properly now. [email or web address] Not available 06/28/2025 12:25:11 07/10/2025 [id number] Pain worse over the weekend, but improved now. Staff to monitor. Not available 07/10/2025 14:39:50 Reason for Referral None Reported. Problems Name Problem SNOMED Code Status Onset Date Resolution Date Notes Provider Name and Address Organization Details Recorded Time Hospital inpatient stay within past 30 days [id number] Active 2022 EVENS birch, [facility] 3 12:23:24 Spinal stenosis of lumbar region 97635724 Active 2022 EVENS birch, [facility] 3 12:23:25 Atrial fibrillati on 57223673 Active 2022 EVENS birch, [facility] 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 3 12:23:27 Neurogenic urinary bladder 753271761 Active 2022 EVENS birch, [facility] 3 12:23:29 Essential hypertensi on 67766403 Active 2022 EVENS TODD [facility], [facility] 3 12:23:30 Difficulty sleeping 643468911 Active 2022 EVENS TODD [facility], [facility] 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 3 12:10:22 Uncontroll ed type 2 diabetes mellitus 530202149 Active 2022 EVENS TODD [facility], [facility] 3 12:10:23 Acute urinary tract infection 925887053 Active 2022 EVENS birch, [facility] 3 12:10:26 [facility]epsis 61150487 [facility] 15:15:01 Metabolic encephalop athy 17632233 Active 2022 EVENS TODD [facility], [facility] 3 15:15:02 Pneumonia 903579907 Active 2022 EVENS TODD [facility] 3 15:15:02 Acute pyelonephr itis 14582643 Active 2022 EVENS TODD [facility], [facility] 3 15:15:04 Anemia due to blood loss 517817219 Active 2022 EVENS TODD [facility] 3 15:15:06 Need for personal care assistance 6341106428033 9106 Active 2023 EVENS TODD [facility] 4 13:09:05 Chronic pain 20929546 Active 2023 EVENS TODD [facility] 4 15:47:08 Osteomyeli tis 32873186 Active 2023 EEVNS TODD [facility] 4 12:18:14 Lumbar discitis 160087635 Active 2023 EVENS TODD [facility] 4 12:18:29 Problem Notes None recorded. Medical Equipment None Reported. Medications Name Sig Start Date Stop Date Status Note LastModified by Organization Details LastModified Time Prescript ion - Renewal active Not Available Not Available Not Available losartan 50 mg tablet active Not Available [...] Not Available Not Available No t Available cetirizin e 10 mg tablet active [...] sent to pharmacy . *dose increase *; 80273; Recorded 01/22/20 22 12:43PM by Jackeline Todd RN (Authori maranda through Vinnie Garcia DO), Office Visit; Refill [...] 0; Recorded 01/22/20 22 8:07AM by Jackeline Todd, RN, Office Visit; Not Available Not Available [...] ne 7.5 mg-acetam inophen 325 mg tablet Take 1 tablet every 4 hours by oral route as needed for 30 days. active Not Available Not Available No t Available bisacodyl 10 mg rectal supposito ry [...] active Not Available Not Available Not Available fentanyl 75 mcg/hr transderm al patch Apply 1 patch every 72 hours by transder mal route. active Not Available Not Available No t Available lisinopri l 40 mg tablet active [...] Visit; Not Available Not Available Not Available cholecalc iferol (vitamin D3) 25 mcg (1,000 unit) tablet active Not Available Not Available Not Available Lantus Solostar U-100 Insulin 100 unit/mL (3 mL) subcutane ous pen active Not Available Not Available Not Available BD PosiFlush Normal Saline 0.9 % injection syringe active Not Available Not Available Not Available Coricidin HBP Chest Congestio n-Cough 10 mg-200 mg capsule active Not Available Not Available Not Available Culturell e Digestive Health 10 billion cell-200 mg sprinkle capsule active Not Available Not Available Not Available Calmosept ine 0.44 %-20.6 % topical ointment active Not Available Not Available Not Available Heparin Lock Flush (Porcine) (PF) 100 unit/mL intraveno us syringe active [...] in Arterial blood by Pulse oximetry Systolic And Diastolic Provider Name and Address Organization Details Last Updated DateTime 5 172.72 cm 27.4 kg/m2 66135.6 3 g 76 /min 18 /min 98.3 [degF] 96 % 96 % 127/72 mm[Hg] [facility] 5 16:15:38 Date Recorded Body height Body mass index (BMI) Body weight Heart rate Respiratory rate Body temperature Oxygen saturation Oxygen saturation in Arterial blood by Pulse oximetry Systolic And Diastolic Provider Name and Address Organization Details Last Updated DateTime 5 172.72 cm 27.4 kg/m2 81495.6 3 g 70 /min 15 /min 98.5 [degF] 97 % 97 % 125/62 mm[Hg] [facility] 5 15:24:33 Date Recorded Body height Body mass index (BMI) Body weight Heart rate Respiratory rate Body temperature Oxygen saturation Oxygen saturation in Arterial blood by Pulse oximetry Systolic And Diastolic Provider Name and Address Organization Details Last Updated DateTime 5 172.72 cm 26.6 kg/m2 24644.6 6 g 75 /min 16 /min 98 [degF] 98 % 98 % 118/52 mm[Hg] [facility] 5 14:39:53 Date Recorded Body height Body mass index (BMI) Body weight Heart rate Respiratory rate Body temperature Oxygen saturation Oxygen saturation in Arterial blood by Pulse oximetry Systolic And Diastolic Provider Name and Address Organization Details Last Updated DateTime 5 172.72 cm 26.6 kg/m2 89438.6 6 g 77 /min 16 /min 98 [degF] 97 % 97 % 132/66 mm[Hg] [facility] 5 12:44:14 Date Recorded Body height Body mass index (BMI) Body weight Heart rate Respiratory rate Body temperature Oxygen saturation Oxygen saturation in Arterial blood by Pulse oximetry Systolic And Diastolic Provider Name and Address Organization Details Last Updated DateTime 5 172.72 cm 26.8 kg/m2 30279.2 6 g 73 /min 20 /min 98.3 [degF] 99 % 99 % 134/75 mm[Hg] EVENS [facility] 5 14:37:45 Social History None recorded. Functional Status None recorded. Mental Status None recorded. Family History Nothing Reported. Medical History No medical history recorded. Immunizations Vaccine Type Date Status Note Provider Nam e and Address Organization Details Recorded Time zoster live 9 completed Not Available [facility] 07/10/2025 14:20:45 pneumococcal polysaccharide PPV23 1 completed Not Available [facility] 07/10/2025 14:20:45 pneumococcal polysaccharide PPV23 4 completed Not Available [facility] 07/10/2025 14:20:45 Tdap 4 completed Not Available [facility] 07/10/2025 14:20:45 Pneumococcal conjugate PCV 13 5 completed Not Available [facility] 07/10/2025 14:20:45 pneumococcal polysaccharide PPV23 6 completed Not Available [facility] 07/10/2025 14:20:45 Tdap 2 completed Not Available [facility] 07/10/2025 14:20:45 zoster recombinant 2 completed Not Available [facility] 07/10/2025 14:20:45 zoster recombinant 3 completed Not Available [facility] 07/10/2025 14:20:45 Influenza, split virus, quadrivalent, PF 3 completed Not Available [facility] 07/10/2025 14:20:45 Influenza, split virus, trivalent, preservative 0 completed Not Available [facility] 05/02/2023 02:33:15 Past Encounters Encounter ID Performer Location Encounter Start Date Encounter Closed Date Diagnosis/Indication Diagnosis SNOMED-CT Code Diagnosis ICD10 Code Diagnosis IMO Codes Diagnosis Note [id number] Vinnie Garcia DO [facility] ([facility]) [address] [place] [address] 5 05/28/2023 12:14:45 05/28/2023 12:32:08 Hospital inpatient stay within past 30 days [id number] 106 Z76.89 Spinal marga nosis of lumbar region 03090619 M48.062 Atrial fibrillation 4943 6004 I48.91 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 8043584185 89947 E11.65 Neurogenic urinary bladder 659882339 N31.9 Essential hypertension 66232122 I10 [id number] Vinnie Garcia [facility]) [address] [place] [address] 98048-238 5 06/04/2023 09:49:04 06/14/2023 17:41:25 Difficulty sleeping 310934692 Z72.514 [id number] Vinnie Garcia [facility]) [address] [place] [address] 09547-815 5 06/23/2023 08:28:47 06/25/2023 15:01:57 Spinal stenosis of lumbar region 05558986 M48.062 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 0986202455 68217 E11.65 Atrial fibrillation 4943 6004 I48.91 Neurogenic urinary bladder 611346608 N31.9 [id number] Vinnie Garcia [facility]) [address] [place] [address]326 5 07/21/2023 09:10:19 08/02/2023 19:30:15 Hospital inpatient stay within past 30 days [id number] 106 Z76.89 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 2748780 I11.0 Uncontroll ed type 2 diabetes mellitus 926338987 E11.65 Atrial fibrillation 4943 6004 I48.91 Acute urin viola tract infection 807296956 N39.0 [id number] Vinnie Garcia DO [facility] ([facility]) [address] [place] [address] 91669-586 5 08/04/2023 13:51:30 08/05/2023 08:38:35 Spinal stenosis of lumbar region 46042901 M48.062 Difficulty sleeping 3013 46435 Z72.209 [id number] Vinnie Garcia DO [facility] ([facility]) [address] [place] [id number] 5 08/11/2023 08:12:12 08/17/2023 15:36:55 Hospital inpatient stay within past 30 days 9052654497 106 Z76.89 Sepsis 33376580 A41.9 Metabolic encephalopathy 08289567 G93.41 Pneumonia 657423258 J18. 9 Acute pyelonephritis 366 16694 N10 Anemia due to blood loss 747474615 D50.0 [id number] Vinnie Garcia DO [facility] ([facility]) [address] [place] [address] 06094-757 5 08/13/2023 08:23:16 08/23/2023 20:29:11 Spinal stenosis of lumbar region 31752941 M48.062 Difficulty sleeping 3013 03880 Z72.820 Acute pyelonephritis 366 62320 N10 Atrial fibrillation 4943 6004 I48.91 [id number] Vinnie Garcia DO [facility] ([facility]) [address] [place] [address] 00435-278 5 09/08/2023 08:20:56 09/11/2023 13:25:11 Spinal stenosis of lumbar region 81899313 M48.062 Neurogenic urinary bladder 508758293 N31.9 Atrial fibrillation 4943 6004 I48.91 Essential hypertension 82717829 I10 [id number] Vinnie Garcia DO [facility] ([facility]) [address] [place] [address] 27173-035 5 09/22/2023 08:49:25 10/11/2023 20:20:29 Acute urinary tract infection 258909550 N39.0 [id number] Vinnie Garcia DO [facility] ([facility]) [address] [place] [address] [id number] 5 10/13/2023 07:55:28 10/14/2023 09:02:24 [id number] Vinnie Garcia DO [facility] ([facility]) [address] [place] [address] [id number] 5 10/20/2023 12:08:00 10/21/2023 14:19:12 Hospital inpatient stay within past 30 days [id number] 106 Z76.89 Acute pyelonephritis 366 53117 N10 Essential hypertension 18165666 I10 Neurogenic urinary bladder 991838332 N31.9 Jose Luis hematuria 36652316 5 R31.0 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 0678429214 51277 E11.65 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 3624996 I11.0 Atrial fibrillation 4943 6004 I48.91 Need for [facility] care assistance [id number] [id number] Z74.1 [id number] Vinnie Garcia DO [facility] ([facility]) [address] [place] [address] [id number] 5 11/03/2023 08:40:18 11/17/2023 08:02:09 Spinal stenosis of lumbar region 51184892 M48.062 Difficulty sleeping 3013 35268 Z72.820 Atrial fibrillation 4943 6004 I48.91 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 2130186 I11.0 Metabolic encephalopathy 67087200 G93.41 [id number] Vinnie Garcia DO [facility] ([facility]) [address] [place] [address] [id number] 5 11/17/2023 08:11:46 11/23/2023 12:00:37 Acute urinary tract infection 820282105 N39.0 [id number] Vinnie Garcia DO [facility] ([facility]) [address] [place] [address] [id number] 5 12/22/2023 08:17:30 12/24/2023 10:58:55 Uncontrolled type 2 diabetes mellitus 702570067 E11.65 Atrial fibrillation 4943 6004 I48.91 [id number] Vinnie Garcia DO [facility] ([facility]) [address] [place] [address] [id number] 5 12/31/2023 08:25:54 12/31/2023 14:23:43 [id number] Vinnie Garcia DO [facility] ([facility]) [address] [place] [address] 01/12/2024 08:56:47 01/13/2024 10:08:49 [id number] Vinnie Garcia DO [facility] ([facility]) [address] [place] [address] 01/12/2024 11:36:10 01/14/2024 10:54:27 Need for personal care assistance [phone] 7667343 Z74.1 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 4347058489 88831 E11.65 Atrial fibrillation 4943 6004 I48.91 Neurogenic urinary bladder 591533843 N31.9 [id number] Vinnie Garcia DO [facility] ([facility]) [address] [place] [address] 5 02/16/2024 08:06:58 02/17/2024 08:34:42 [id number] Vinnie Garcia DO [facility] ([facility]) [address] [place] [address] 5 03/03/2024 14:43:36 03/08/2024 10:00:49 Hypertensive heart disease with congestive heart failure 2634660 I11.0 [id number] Vinnie Garcia DO [facility] ([facility]) [address] [place] [address] 5 03/17/2024 09:35:21 03/21/2024 11:43:22 [id number] Vinnie Garcai DO [facility] ([facility]) [address] [place] [address] 5 03/22/2024 13:32:15 08/17/2024 12:52:07 [id number] NATA JUAREZ PA-C [facility] ([facility]) [address] [place] [address] 5 03/23/2024 12:47:26 04/10/2024 22:57:16 Sepsis 57657592 A41.9 etapenem and fluconazol e Acute urin viola tract infection 674753819 N39.0 hospital records reviewed and meds reconciled . pt is doing well. continue current meds and therapy [id number] Vinnie Garcia DO [facility] ([facility]) [address] [place] [address] 5 03/29/2024 08:20:20 03/30/2024 08:39:55 [id number] Vinnie Garcia DO [facility] ([facility]) [address] [place] [address] 5 03/31/2024 11:01:06 03/31/2024 17:44:40 Hospital inpatient stay within past 30 days 2650143395 106 Z76.89 Metabolic encephalopathy 14569952 G93.41 Acute urin viola tract infection 777146714 N39.0 [id number] Vinnie Garcia DO [facility] ([facility]) [address] [place] [address] 5 04/12/2024 08:14:54 04/12/2024 18:01:31 Hospital inpatient stay within past 30 days 9390887486 106 Z76.89 Acute pyelonephritis 366 77354 N10 Acute urin viola tract infection 823262412 N39.0 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 4483730 I11.0 [id number] Vinnie Garcia DO [facility] ([facility]) [address] [place] [id number] 5 04/26/2024 12:28:28 04/26/2024 15:48:19 Neurogenic urinary bladder 826388651 N31.9 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 0024049430 46339 E11.65 Atrial fibrillation 4943 6004 I48.91 Essential hypertension 11736230 I10 [id number] Vinnie Garcia DO [facility] ([facility]) [address] [place] [address] 5 05/03/2024 08:14:45 05/04/2024 08:41:49 [id number] Vinnie Garcia DO [facility] ([facility]) [address] [place] [address] 5 05/05/2024 08:27:21 05/05/2024 15:42:04 Hospital inpatient stay within past 30 days 2546959423 106 Z76.89 Osteomyelitis 21991685 M 86.9 Lumbar discitis 57689367 2 M46.46 Neurogenic urinary bladder 639589749 N31.9 [id number] Vinnie Garcia DO [facility] ([facility]) [address] [place] [address] 92655-763 5 05/17/2024 08:30:30 05/17/2024 15:38:29 Hyperglycemia due to type 2 diabetes mellitus 5736085318 20152 E11.65 Lumbar discitis 18411826 2 M46.46 Atrial fibrillation 4943 6004 I48.91 [id number] Vinnie Garcia DO [facility] ([facility]) [address] [place] [address]-241 5 05/24/2024 08:53:24 05/24/2024 17:01:30 Acute urinary tract infection 309941888 N39.0 Atrial fibrillation 4943 6004 I48.91 Chronic pain 54478348 G8 9.29 [id number] Vinnie Garcia DO [facility] ([facility]) [address] [place] [address]13-740 5 05/31/2024 13:56:48 05/31/2024 16:31:26 Neurogenic urinary bladder 333383387 N31.9 [id number] Vinnie Garcia DO [facility] ([facility]) [address] [place] [address] 86415-982 5 06/07/2024 12:03:54 06/07/2024 16:23:12 Lumbar discitis 363673948 M46.46 Difficulty sleeping 3013 40895 Z72.820 Atrial fibrillation 4943 6004 I48.91 [id number] Vinnie Garcia DO [facility] ([facility]) [address] [place] [address] 02507-522 5 06/16/2024 08:27:14 06/16/2024 16:12:57 Neurogenic urinary bladder 876951829 N31.9 [id number] Vinnie Garcia DO [facility] ([facility]) [address] [place] [address] [id number] 5 06/30/2024 08:12:55 07/03/2024 13:51:10 [id number] Vinnie Garcia DO [facility] ([facility]) [address] [place] [address]-868 5 11/21/2024 14:33:52 11/29/2024 07:36:51 Hospital inpatient stay within past 30 days 2418797966 106 Z76.89 Essential hypertension 13106148 I10 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 2419217353 93644 E11.65 [id number] Vinnie Garcia DO [facility] ([facility]) [address] [place] [address] 79018-192 5 12/05/2024 14:47:47 12/09/2024 07:25:39 Hospital inpatient stay within past 30 days 3655120847 106 Z76.89 Metabolic encephalopathy 09248460 G93.41 Acute kidney injury 1466 9001 N17.9 Acute urin viola tract infection 013913311 N39.0 Osteomyelitis 12722177 M 86.9 vertebral [id number] Vinnie Garcia DO [facility] ([facility]) [address] [place] [address] 90483-816 5 12/19/2024 14:48:31 12/21/2024 06:52:41 Flatulence, eructation and gas pain 840744650 R14.1 Abdominal pain 97500378 R10.9 [id number] Vinnie Garcia DO [facility] ([facility]) [address] [place] [address] 76075-902 5 12/29/2024 09:31:53 01/03/2025 07:10:38 Hospital inpatient stay within past 30 days 8295419932 106 Z76.89 Lumbar discitis 77793334 2 M46.46 Metabolic encephalopathy 10161779 G93.41 Uncontroll ed type 2 diabetes mellitus 744863450 E11.65 [id number] Vinnie Garcia DO [facility] ([facility]) [address] [place] [address] 14298-745 5 2025 12:25:55 02/14/2025 17:18:12 Chronic pain 33254703 G89.29 Generalize d abdominal pain 383758968 R10.84 [id number] Vinnie Garcia [facility]) [address] [place] [address] 69264-345 5 03/16/2025 11:01:51 03/27/2025 16:54:18 Spinal stenosis of lumbar region 82745877 M48.062 Lumbar discitis 55722497 2 M46.46 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 7074412503 86312 E11.65 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 3187985 I11.0 [id number] Vinnie Garcia DO [facility] ([facility]) [address] [place], [place] [address] 5 04/10/2025 08:33:14 04/11/2025 10:29:30 Spinal stenosis of lumbar region 18935445 M48.062 Lumbar discitis 64861017 2 M46.46 Difficulty sleeping 3013 02175 Z72.833 [id number] Vinnie Garcia DO [facility] ([facility]) [address] [place] [address] 5 05/29/2025 14:25:03 05/30/2025 09:20:22 Hyperglycemia due to type 2 diabetes mellitus 0777314897 35297 E11.65 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 4264314 I11.0 Essential hypertension 92905024 I10 Atrial fibrillation 4943 6004 I48.91 [id number] Vinnie Garcia DO [facility] ([facility]) [address] [place], [place] [address] 5 06/15/2025 12:16:39 06/20/2025 10:33:14 Hospital inpatient stay within past 30 days 1617322356 106 Z76.89 Acute urin viola tract infection 822744144 N39.0 692210 [id number] Vinnie Garcia DO [facility] ([facility]) [address] [place], [place] [address] 5 06/22/2025 09:39:44 06/28/2025 12:52:37 Spinal stenosis of lumbar region 43220839 M48.062 Atrial fibrillation 4943 6004 I48.91 Essential hypertension 93372092 I10 Displaceme nt of nephrostomy tube 914439079 T83.022A [id number] Blocked catheter 6387597 005 T82.898D [id number] Vinnie Garcia [facility] ([facility]) [address] [place], [place] [address] 5 07/10/2025 14:20:27 07/11/2025 15:26:48 Lumbar discitis 132070693 M46.46 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 4903218364 79588 E11.65 Neurogenic urinary bladder 934948242 N31.9 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 8939233 I11.0 Atrial fibrillation 4943 6004 I48.91 Health Concerns Section Related Observation LastModified by Organization Detai ls LastModified Time None Recorded Concern Status LastModified by Organization Details LastModified Time None Recorded Advance Directives Directive None Recorded Payers Insurance Date Sequence Insurance Name Policy Number Policy Mueller Covered Member ID Mueller Member ID Guarantor Name 05/28/2023 1 *SELF PAY* Mi domenico Felisa Deal 06/15/2025 [facility] Raphael Deal [id number] Raphael Deal 06/15/2025 1 [employer] (MEDICARE REPLACEMENT/ ADVANTAGE - PPO) Raphael Deal [id number] Raphael Deal Notes Date Note Type Note Provider Name and Address Organization Details Recorded Time 5 text/html HypertensionReported by PatientHPIFor severity, patient reportsgrade 1 (130-139/80-89). For duration, patient reportshas noted for years. For alleviating factors, patient reportsmedication.ROS as noted in the HPI no issues per staff. Vinnie Garcia DO [address] [place] [address], [phone], [facility] 04/10/2025 16:52:26 5 text/html HypertensionReported by PatientHPIFor severity, patient reportsgrade 1 (130-139/80-89). For duration, patient reportshas noted for years. For alleviating factors, patient reportsmedication.ROS as noted in the HPI no issues per staff. Vinnie Garcia DO [address] [place] [address], [phone], [facility] 05/29/2025 17:06:13 5 text/html HypertensionReported by PatientHPIFor severity, patient reportsgrade 1 (130-139/80-89). For duration, patient reportshas noted for years. For alleviating factors, patient reportsmedication.ROS as noted in the HPI new admit to SNF after hospital stay. Vinnie Garcia DO [address] [place] [address], [phone], [facility] 06/19/2025 14:46:53 5 text/html HypertensionReported by PatientHPIFor severity, patient reportsgrade 1 (130-139/80-89). For duration, patient reportshas noted for years. For alleviating factors, patient reportsmedication.ROS as noted in the HPI ER follow up Vinnie Garcia DO [address] [place] [address], [phone], [facility] 06/28/2025 12:25:39 5 text/html HypertensionReported by PatientHPIFor severity, patient reportsgrade 1 (130-139/80-89). For duration, patient reportshas noted for years. For alleviating factors, patient reportsmedication.ROS as noted in the HPI no complains per staff, patient complains of worsening pain over the weekend. Vinnie Garcia DO [address] [place] [address], [phone], [facility] 07/10/2025 14:41:06
--- OUTSIDE RECORDS SUMMARY | 2025-08-06 19:10 | XMS_ITS | Patient Health Record ---
Author Organization [facility] Address [address] [place] [address] Care Team Providers Care Market Manager Name Role Phone Garcia Vinnie SAEED Primary Care Provider John Andrews JR Unavailable [phone] Nury Flores Unavailable [phone] Frankie Hendrix Unavailable [phone] Ila Fischer Unavailable Allergies Allergen (clinical drug ingredient) Drug/Non Drug Allergy documented on EMR Reaction Allergy Type Onset Date Status atorvastatin Lipitor Unknown Drug Allergy Acti ve pravastatin Pravachol Unknown Drug Allergy Activ e gemfibrozil Gemfibrozil Unknown Drug Allergy Act arsenio pravastatin Pravastatin Unknown Drug Allergy Act arsenio Results Component Value Reference Range Flag Notes Culture Urine 27401 Reviewed date:12/23/2024 09:24:51 AM Interpretation: Performing Lab: Notes/Report: Culture Urine AKI Kelly Culture Urine t: Culture Urine Culture Urine [facility] [id number] Culture Urine n: Culture Urine Microbiology Culture [...] Culture Urine O1: Culture Urine (Culture Urine [id number]) Culture Urine Right perc tube Culture Urine Diagnosis Description: Other abnormal findings in urine Vancomycin Trough 64380 Reviewed date:02/01/2025 08:19:38 AM Interpretation: Performing Lab: Notes/Report: Clementine Tr 36.4 8.0-20.0 MCG/ML CRIT called to belen freeman 12/21/2024 13:23:48 dg CRP 93708 Reviewed date:01/05/2025 11:54:59 AM Interpretation: Performing Lab: Notes/Report: 5407 @ 2045; Report attempt @2049 5407 @ 2045 CRP 5.22 .40-1.00 MG/DL HI Urinalysis--58759 Reviewed date:01/05/2025 11:46:37 AM Interpretation: Performing Lab: [...] Leukocyte 3+ NA Normal UA No UA Microscopic--51448 Reviewed date:01/05/2025 11:46:34 AM Interpretation: Performing Lab: Notes/Report: Micro UA ordered by [employer] Rules system. 5407 @ 2045; Report attempt @2049 5407 @ 2045 RBC U 3 NA WBC U 375 0-5 /HPF HI Bacteria None Seen Hyaline Casts 3 NA SQ EPI <1 NA Culture Urine 25073 (Not yet reviewed by provider) Interpretation: Performing Lab: Notes/Report: Culture Urine AKI Kelly Culture Urine t: Culture Urine Culture Urine Access [id number] Culture Urine n: Culture Urine Microbiology Culture [...] Urine No further work-up i s indicated UA Microscopic--76754 Reviewed date:06/14/2025 08:10:19 AM Interpretation: Performing Lab: Notes/Report: Micro UA ordered by [employer] Rules system. RBC U 47 NA WBC U 90 0-5 /HPF HI Bacteria None Seen SQ EPI 2 NA Budding Yeast Present IMH MRI Lumbar Spine w/ + w/ o Cont-[id number] Reviewed date:06/11/2025 11:56:54 AM Interpretation: Performing Lab: Notes/Report: See Below For Report MRI Lumbar Spine w/ + w/o Cont Read See Below For Report CBC w\ Auto Diff 01756 Reviewed date:06/14/2025 08:10:19 AM Interpretation: Performing Lab: [...] 40.0-70.0 % Lymph Auto% 25.3 22.0-44.0 % Crawford Auto% 5.9 3.0-7.0 % Eos Auto% 4.0 2.0-4.0 % Baso Auto% 0.8 0.0-1.0 % Imm Gran% .5 .0-.4 % HI Neutro Abs 7.35 .80-7.70 Absolute Neutrophil Count 7350 NA Lymph Abs 2.93 .10-4.10 Crawford Abs .68 .20-1.00 Eos Abs .46 .00-.40 HI Baso Abs .09 .00-.20 Imm Gran Abs .06 .00-.10 NRBC# .00 .00-.20 NRBC% .00 .00-.20 /100 intact WBC's CRP 44975 Reviewed date:01/26/2025 02:23:47 PM Interpretation: Performing Lab: Notes/Report: Diagnosis Description: Tubulo-interstitial nephritis, not specified as acute or chronic CRP .83 .40-1.00 MG/DL CBC w\ Auto Diff 81882 Reviewed date:01/26/2025 02:23:47 PM Interpretation: Performing Lab: [...] 40.0-70.0 % Lymph Auto% 23.9 22.0-44.0 % Crawford Auto% 6.4 3.0-7.0 % Eos Auto% 3.7 2.0-4.0 % Baso Auto% 0.8 0.0-1.0 % Imm Gran% .3 .0-.4 % Neutro Abs 6.70 .80-7.70 Absolute Neutrophil Count 6700 NA Lymph Abs 2.47 .10-4.10 Crawford Abs .66 .20-1.00 Eos Abs .38 .00-.40 Baso Abs .08 .00-.20 Imm Gran Abs .03 .00-.10 NRBC# .00 .00-.20 NRBC% .00 .00-.20 /100 intact WBC's Comprehensive Metabolic Pane l (CMP) 52430 Reviewed date:01/26/2025 02:23:47 PM Interpretation: Performing Lab: Notes/Report: Diagnosis Description: Tubulo-interstitial nephritis, not specified as acute or chronic Glucose Serum 280 71-110 MG/DL HI Testing steve smith at [address] Edi [place], [place] [address]. CLIA ID#: [id number] BUN 14 7-21 MG/DL Creat .77 .57-1.17 MG/DL G-akgmxg-q-benzoquin one imine (NAPQI) is a metabolite of [...] LOW Osmo Serum,Calculated 304 280-300 MOSM/[place] [address] Reviewed date:01/02/2025 09:13:54 AM Interpretation: Performing Lab: Notes/Report: Pt is a line draw 12/26/2024 23:09:44 chutson 5407 @ 2045; Report attempt @2049 5407 @ 2045 CRP .79 .40-1.00 MG/DL Culture Urine 07743 Reviewed date:01/05/2025 11:43:08 AM Interpretation: Performing Lab: Notes/Report: Culture Urine AKI Kelly Felisa Culture Urine t: Culture Urine Culture Urine Accessio [id number] Culture Urine n: Culture Urine Microbiology Culture [...] No further work[place] 8[address]96 Reviewed date:01/05/2025 11:41:55 AM Interpretation: Performing Lab: Notes/Report: LINE 5407 @ 2045; Report attempt @2049 5407 @ 2045 CRP .94 .40-1.00 MG/DL CRP 24356 Reviewed date:01/05/2025 11:43:12 AM Interpretation: Performing Lab: Notes/Report: 5407 @ 2045; Report attempt @2049 5407 @ 2045 CRP 1.44 .40-1.00 MG/DL HI Culture Urine 44867 Reviewed date:01/31/2025 08:27:40 AM Interpretation: Performing Lab: Notes/Report: Culture Urine Lei DEALAKI Culture Urine t: Culture Urine Culture Urine Accessio [id number] Culture Urine n: Culture Urine Microbiology Culture [...] Urine No further work-up i s indicated UA Microscopic--18164 Reviewed date:01/31/2025 08:27:52 AM Interpretation: Performing Lab: Notes/Report: Micro UA ordered by [employer] Rules system. 5407 @ 2045; Report attempt @2049 5407 @ 2045 RBC U 655 NA WBC U >999 0-5 /HPF HI Bacteria 1+ Hyaline Casts 3 NA Granular Casts Present SQ EPI 1 NA Budding Yeast Present Urinalysis--77701 Reviewed date:01/31/2025 08:27:55 AM Interpretation: Performing Lab: [...] Urine Leukocyte 3+ NA Normal UA No MRI Lumbar Spine w/ + w/o Co nt-[id number] Reviewed date:01/31/2025 08:29:45 AM Interpretation: Performing Lab: Notes/Report: See Below For Report Technique: Sagittal and axial T2 and pre and post contrast T1 and 5407 @ 2045; Report attempt @2049 Read See Below For Report MRI Lumbar Spine w/ + w/o Co nt-[id number] Reviewed date:02/01/2025 08:19:31 AM Interpretation: Performing Lab: Notes/Report: [id number]&org=iSite Partial Thromboplastin Time 37085 Reviewed date:12/23/2024 08:46:50 PM Interpretation: Performing Lab: Notes/Report: 5407 @ 2045; Report attempt @2049 5407 @ 2045 PTT 28.9 22.6-31.8 SEC Critical Value Starting at > 100. Therapeutic Range: 60-100. Prothrombin Time 10475 Reviewed date:12/23/2024 08:46:20 PM Interpretation: Performing Lab: Notes/Report: 5407 @ 2045; Report attempt @2049 5407 @ 2045 ProTime 11.8 9.1-11.9 SEC Normal Range : 9.1-11.9 INR 1.12 .90-1.20 Therapeutic Range: 2.0-3.0 Therapaeutic Range for heart valve replacement: 2.5-3.50 Culture Urine 20248 Reviewed date:12/23/2024 09:25:47 AM Interpretation: Performing Lab: Notes/Report: Culture Urine AKI Kelly Culture Urine t: Culture Urine Culture Urine Accessio [id number] Culture Urine n: Culture Urine Microbiology Culture [...] Culture Urine O1: Culture Urine (Culture Urine 02925) Culture Urine Diagnosis Description: Other abnormal findings in urine Basic Metabolic Panel (BMP) 43948 Reviewed date:01/02/2025 09:13:51 AM Interpretation: Performing Lab: Notes/Report: 5407 @ 2045; Report attempt @2049 5407 @ 2045 Sodium 138 136-145 MMOL/L Potassium 4.5 3.5-5.1 MMOL/L Chloride 105 98-107 MMOL/L CO2 28.0 20.0-31.0 MMOL/L Glucose Serum 147 71-110 MG/DL HI Testing p erformed at [facility], [address] [place] [address] [place] [address]. CLIA ID#: [id number] BUN 24 7-21 MG/DL HI Creat .84 .57-1.17 MG/DL Use of this assay is not recommended for patients undergoing treatment with phenindione, due to the potential for falsely depressed results. M-rpqaag-q-benzoquin one imine (NAPQI) is a metabolite of [...] Osmo Serum,Calculated 293 280-300 MOSM/KG Phosphorus (B) 19999 Reviewed date:01/02/2025 09:13:47 AM Interpretation: Performing Lab: Notes/Report: 5407 @ 2045; Report attempt @2049 5407 @ 2045 Phos 3.2 2.4-5.1 MG/DL CRP 21593 Reviewed date:01/02/2025 09:12:14 AM Interpretation: Performing Lab: Notes/Report: 5407 @ 6; Report attempt @2049 5407 @ 2045 CRP .62 .40-1.00 MG/DL [facility] MRI Lumbar Spine w/ + w/ o Cont-[id number] Reviewed date:06/11/2025 11:56:54 AM Interpretation: Performing Lab: Notes/Report: [email or web address]=[id number]&org=iSite Urinalysis--29076 Reviewed date:06/14/2025 08:10:19 AM Interpretation: Performing Lab: Notes/Report: Color UA Yellow NA Clarity UA Clear NA Specific gravity UA 1.009 1.005-1.030 Urine pH 6.5 5.0-8.0 NA Urine Glucose Trace NA Urine Bilirubin Negative NA Urine Ketone Negative NA Urine Blood 2+ NA Urine Protein 1+ NA Urobilinogen 0.2 0.1-1.0 NA Urine Nitrite Negative NA Urine Leukocyte 3+ NA [place] 40426 Reviewed date:06/14/2025 08:10:19 AM Interpretation: Performing Lab: Notes/Report: CRP 4.79 .40-1.00 MG/DL HI Microscopic Urine 54299 Reviewed date:07/05/2025 08:18:39 AM Interpretation: Performing Lab: Notes/Report: Diagnosis Description: Chronic obstructive pyelonephritis RBC U 3 NA WBC U 12 0-5 /HPF HI Bacteria None Seen NA Hyaline Casts 4 NA SQ EPI <1 NA Culture Urine 67677 Reviewed date:07/05/2025 08:18:39 AM Interpretation: Performing Lab: Notes/Report: Culture Urine Lei DEAL, AKI CHURCH Culture Urine t: Culture Urine Culture Urine Accessio [id number] Culture Urine n: Culture Urine Microbiology Culture Urine PROCEDURE: Culture Urine [O1] Culture Urine SOURCE: Urine BODY SITE: Culture Urine COLLECTED DATE/TIME: 07/03/2025 16:13 CDT RECEIVED DATE/TIME: 07/03/2025 20:56 CDT Culture Urine START DATE/TIME: 07/03/2025 20:56 CDT FREE TEXT SOURCE: Culture Urine FINAL REPORT Culture Urine Final Report [] Culture Urine Verified Date/Time: 07/05/2025 06:11 CDT Culture Urine No growth at 48 hours Culture Urine Order Comments Culture Urine O1: Culture Urine (Culture Urine 71288) Culture Urine Diagnosis Description: Chronic obstructive pyelonephritis CBC w\ Auto Diff 61180 Reviewed date:06/14/2025 08:10:19 AM Interpretation: Performing Lab: [...] % Lymph Auto% 19.7 22.0-44.0 % LOW Crawford Auto% 6.9 3.0-7.0 % Eos Auto% 3.4 2.0-4.0 % Baso Auto% 0.8 0.0-1.0 % Imm Gran% .4 .0-.4 % Neutro Abs 8.99 .80-7.70 HI Absolute Neutrophil Count 8990 NA Lymph Abs 2.58 .10-4.10 Crawford Abs .90 .20-1.00 Eos Abs .44 .00-.40 HI Baso Abs .11 .00-.20 Imm Gran Abs .05 .00-.10 NRBC# .00 .00-.20 NRBC% .00 .00-.20 /100 intact WBC's zzzMRI Outside CD Reviewed date:06/11/2025 11:56:54 AM Interpretation: Performing Lab: Notes/Report: [id number]&org=iSite zzzCT Outside CD Reviewed date:06/11/2025 11:56:54 AM Interpretation: Performing Lab: Notes/Report: eur=[id number]&org=iSite zzzMRI Outside CD Reviewed date:06/11/2025 11:56:54 AM Interpretation: Performing Lab: Notes/Report: rca=[id number]=iSite Reason For Referral Reason UTI (Expires 6) 12/20 Diagnosis 1 UTI symptoms (R39.9) Referring Provider First Name Judy Referring Provider Last Name Ernestine Referring Provider Speciality Family Med icine Referred Organization [facility] Referred Provider Nury Flores Referred Address [address] [place] [address],[place], [place],[address], Referred Provider Specialty Nurse Tolu elizalde Referral Priority Routine Reason Urinary tract infect ion Diagnosis 1 Urinary tract infect ion (N39.0) Referring Provider First Name Carla Douglasu ff Referring Provider Last Name [place] Referring Provider Speciality [place] Affairs Referred Organization [facility] Referred Provider Frankie Hendrix Referred Address [address],[place],[address],[place] Referred Provider Specialty Urology Referral Priority Routine Reason Nephrostomy tubes Diagnosis 1 Nephrostomy status ( Z93.6) Referring Provider First Name Trisha Referring Provider Last Name [facility] Referring Provider [facility] Referred Provider Frankie Hendrix Referred Address [address],[place],[address],[place] Referred Provider Specialty Urology Referral Priority Routine Reason hydronephrosis Diagnosis 1 Hydronephrosis (N13. 30) Referring Provider First Name Carla bettencourt Referring Provider Last Name [place] Referring Provider [facility] Referred Organization [facility] Referred Provider Frankie Hendrix Referred Address [address],[place],[address],[place] Referred Provider Specialty Urology Referral Priority Routine Medications Medication SIG (Take, Route, Frequency, Duration) Notes Start Date End Date Status Finasteride 5 MG Tablet Oral 07/23/2023 Active Fluconazole 200 MG Tablet 1 tablet Orally 03/23/2024 Not-Taking traMADol HCl 50 MG Tablet 1 tablet as needed Orally every 6 hours 03/23/2024 Not-Taking Digoxin 250 MCG Tablet 1 tablet Orally Once a day Active Dulcolax 10 MG Suppository 1 suppository as needed Rectal Once a day Not-Taking Fosfomycin Tromethamine 3 GM Packet as directed Orally 02/01/2025 Active Gabapentin 400 MG Capsule 1 capsule Orally Once a day Not-Taking ubidecarenone 30 MG Oral Capsule ORAL *Reorder from [facility] for eRx and Interaction Alerts* 07/23/2023 Not-Taking Fish Oil 1000 MG Capsule 1 capsule Orally Three times a day Active fluticasone propionate 0.1 MG/ACTUAT / salmeterol 0.05 MG/ACTUAT Dry Powder Inhaler INTRAPULMONARY *Reorder from [facility] for eRx and Interaction Alerts* 07/23/2023 Not-Taking mometasone furoate 0.05 MG/ACTUAT Metered Dose Nasal [place] *Reorder from [facility] for eRx and Interaction Alerts* 07/23/2023 Not-Taking Diltiazem Hydrochloride 60 MG Oral Tablet ORAL *Reorder from [facility] for eRx and Interaction Alerts* 07/23/2023 Not-Taking Tamsulosin HCl 0.4 MG Capsule Oral 07/23/2023 Not-Taking Colace 100 MG Capsule 1 capsule as needed Orally Once a day Not-Taking Metoprolol Tartrate 50 MG Tablet 1 tablet with food Orally Twice a day Active Melatonin 1 MG Oral Tablet ORAL *Reorder from [facility] for eRx and Interaction Alerts* 07/23/2023 Active insulin aspart, human 100 UNT/ML Injectable Solution [NovoLog] *Reorder from [facility] for eRx and Interaction Alerts* 09/25/2023 Not-Taking Galantamine Hydrobromide 4 MG Tablet 1 tablet with meals Orally Twice a day Active vitamin B12 1 MG Sublingual Tablet *Reorder from [facility] for eRx and Interaction Alerts* 07/23/2023 Not-Taking Furosemide 20 MG Oral Tablet ORAL *Reorder from [facility] for eRx and Interaction Alerts* 07/23/2023 Active Linezolid Active Losartan Potassium 50 MG Oral Tablet ORAL *Reorder from [facility] for eRx and Interaction Alerts* 07/23/2023 Not-Taking Insulin Glargine 100 UNIT/ML Solution Pen-injector as directed Subcutaneous Active HYDROcodone-Acetamin ophen 7.5-325 MG Tablet 1 tablet as needed Orally every 6 hrs Active Pantoprazole Sodium 40 MG Tablet Delayed Release 1 tablet Orally BID 03/23/2024 Active Methocarbamol 750 MG Oral Tablet ORAL *Reorder from [facility] for eRx and Interaction Alerts* 07/23/2023 Not-Taking oxyCODONE HCl 5 mg Active Fluticasone Propionate (Inhal) 100 MCG/ACT Aerosol Powder Breath Activated 1 puff Inhalation Twice a day Active rivaroxaban 20 MG Oral Tablet [Xarelto] ORAL [facility]* 07/23/2023 Active MiraLax 17 GM/SCOOP Powder 1 scoop mixed with 8 ounces of fluid Orally Once a day Not-Taking Fluticasone Propionate 50 MCG/ACT Suspension 1 spray in each nostril Nasally Twice a day Active Potassium Chloride ER 10 MEQ Tablet Extended Release 1 tablet with food Orally once daily Active Melatonin 1 MG/4ML Liquid 4 mL at bedtime as needed Orally Once a day Not-Taking NovoLOG 100 UNIT/ML Solution as directed Injection Active metFORMIN HCl 500 MG Tablet Oral 07/23/2023 Not-Taking Coenzyme Q10 10 MG Capsule as directed Orally Active Carvedilol 6.25 MG Tablet 1 tablet with food Orally Twice a day Active cholecalciferol 1.25 MG Oral Tablet ORAL *Reorder from [facility] for eRx and Interaction Alerts* 07/23/2023 Not-Taking Cranberry 250 MG Tablet as directed Orally Active Atorvastatin Calcium 80 MG Tablet 1 tablet Orally Once a day Active Tamsulosin HCl 0.4 MG Capsule 1 capsule Orally Once a day Active Mometasone Furoate 50 MCG/ACT Suspension 4 sprays (2 sprays in each nostril) Nasally Once a day Not-Taking fentaNYL 100 MCG/HR Patch 72 Hour 1 patch to skin Transdermal Active Rosuvastatin Calcium 40 MG Oral Tablet ORAL *Reorder from [facility] for eRx and Interaction Alerts* 07/23/2023 Active Amiodarone HCl 200 MG Tablet 1 tablet Orally Once a day Not-Taking bisacodyl 10 MG Rectal Suppository [Dulcolax] RECTAL *Reorder from [facility] for eRx and Interaction Alerts* 07/23/2023 Not-Taking Albuterol Sulfate 108 (90 Base) MCG/ACT Aerosol Powder Breath Activated 1 puff as needed Inhalation every 4 hrs Active Tylenol 325 MG Tablet 1 tablet as needed Orally every 6 hrs 03/23/2024 Active Social History Section Notes: Non smoker Non smoker Non smoker Non smoker Non smoker Non smoker Non smoker Non smoker Non smoker Problems Problem Type SNOMED Code ICD Code Onset Dates Problem Status W/U Status Risk Notes Problem Malignant neoplasm of prostate (036423451) Malignant neoplasm of prostate (C61) Active confirmed Problem Malignant tumor of ureter (456587948) 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 Problem 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 Problem Chronic obstructive pyelonephritis (694655155) 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 Problem Chronic kidney disease (983679453) Chronic kidney disease, unspecified (N18.9) Active confirmed Problem Disorder of urinary bladder (97253217) Other specified disorders of bladder (N32.89) Active confirmed Problem Disorder of urinary bladder (16937377) Bladder disorder, unspecified (N32.9) Active confirmed Problem Hallucinations (5470117) Hallucinations, unspecified (R44.3) Active confirmed Problem History of malignant neoplasm of prostate (106622730) Personal history of malignant neoplasm of prostate (Z85.46) Active confirmed Problem Urostomy present (797987657) Other artificial openings of urinary tract status (Z93.6) Active confirmed Problem Urogenital implant (735770550) Presence of urogenital implants (Z96.0) Active confirmed Problem Altered mental status (352401521) Altered mental status, unspecified altered mental status type (R41.82) Active confirmed Problem Discitis of lumbar region (641719838) 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) Active confirmed Problem History of malignant neoplasm of prostate (684582944) Personal history of prostate cancer (Z85.46) Active confirmed Problem History of radiation therapy (973347430) History of radiation therapy (Z92.3) Active confirmed Problem Nephrostomy (87651005) Nephrostomy status (Z93.6) Active confirmed Problem Chronic kidney disease stage 3 (disorder) (687354645) Chronic kidney disease, stage 3 unspecified (N18.30) Active confirmed Problem History of external beam radiation therapy (34658177233746) History of external beam radiation therapy (Z92.3) Active confirmed Problem Lumbar discitis (345418620) 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) Active confirmed Problem Ureteral stent present (Z96.0) Active confirmed Problem Obstructive pyelonephritis (3996135028185) Obstructive pyelonephritis (N11.1) Active confirmed Problem Nephrostomy present (08953180870529) Nephrostomy present (Z93.6) Active confirmed Vital Signs Heart Rate 97 /min 07/24/2025 Temperature 98.6 degrees Fahrenheit 07/24/2025 Respiratory Rate 18 /min 07/03/2025 Oximetry 98 % 07/17/2025 Blood pressure diastolic 69 mm Hg 07/24/2025 Height-cm 172.72 cm 07/24/2025 Weight-kg 79.38 kg 07/24/2025 Height 68.00 in 07/24/2025 Blood pressure systolic 100 mm Hg 07/24/2025 Weight 175.0 lbs 07/24/2025 BMI 26.61 kg/m2 07/24/2025 Encounters Encounter Location Date Provider Diagnosis [facility] [address] [place] [address], [place] [address] 02/01/2025 John Man Pyelonephritis N12 ; Unspecified Escherichia coli [E. 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 ; Hydronephrosis, unspecified hydronephrosis type N13.30 ; Ureteral stent present Z96.0 ; Intractable pain R52 and Nephrostomy status Z93.6 [facility] [address] [place] [address] Dr Berry [address] [place] [address], [place] [address] 07/24/2025 Ila Fischer Nephrostomy status Z93.6 ; Pyelonephritis N12 ; 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 ; Personal history of malignant neoplasm of prostate Z85.46 and History of radiation therapy Z92.3 [facility] [address] [place] [address] Dr Berry [address] [place] [address], [place] [address] 03/31/2025 Ila Fischer Nephrostomy status Z93.6 ; Hydronephrosis, unspecified hydronephrosis type N13.30 ; Personal history of malignant neoplasm of prostate Z85.46 ; History of external beam radiation therapy Z92.3 and 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 [facility] [address] [place] [address] Dr Berry [address] [place] [address], [place] [address] 12/20/2024 Frankie Hendrix Bilateral hydronephrosis N13.30 ; Personal history of prostate cancer Z85.46 ; Bladder disorder N32.9 ; Other abnormal findings in urine R82.998 and Unspecified abnormal findings in urine R82.90 [facility] [address] [place] [address], [place] [address] 07/03/2025 Nury La Harpe Nephrostomy status Z93.6 ; Type 2 diabetes mellitus with 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 and Obstructive pyelonephritis N11.1 [facility] [address] [place] [address], [place] [address] 01/25/2025 Nury La Harpe Pyelonephritis N12 ; Unspecified Escherichia coli [E. 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 ; Hydronephrosis, unspecified hydronephrosis type N13.30 ; Ureteral stent present Z96.0 ; Intractable pain R52 and Nephrostomy status Z93.6 [facility] [address] [place] [address], [place] [address] 07/17/2025 John Donovan Nephrostomy status Z93.6 ; Type 2 diabetes mellitus with 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 and Obstructive pyelonephritis N11.1 [facility] [address] [place] [address], [place] [address] 12/20/2024 Nury Nicholeol Pyelonephritis N12 ; Unspecified Escherichia coli [E. 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 ; Hydronephrosis, unspecified hydronephrosis type N13.30 ; Ureteral stent present Z96.0 ; Intractable pain R52 and Nephrostomy status Z93.6 [facility] [address] [place] [address] Dr [address] [place] [address] 05/05/2025 Frankie Ruma [facility] [address] [place] [address] Dr [address] [place] [address] 04/10/2025 Frankie [facility] [address] [place] [address] Dr [address] [place] [address] 08/03/2025 Frankie Jacksay [facility] [address] [place] [address] Dr Berry [address] [place] [address] 03/31/2025 Frankie Hendrix Malignant neoplasm o f right ureter C66.1 ; Nephrostomy status Z93.6 and Ureteral stent present Z96.0 [facility] [address] [place] [address] Dr Berry [address] [place] [address] 03/22/2025 Frankie [facility] [address] [place] [address] Dr [address] [place], [place] [id number] 03/21/2025 [facility] [address] [place] [address], [place] [address] 01/09/2025 Nury Flores [facility] [address] [place] [address] 12/22/2024 [facility] [address] [place] [address] 12/21/2024 [facility] [address] [place] [address] 12/20/2024 [facility] [address] [place] [address] 12/20/2024 Frankie Hendrix Other abnormal findings in urine R82.998 [facility] [address] [place] [address] 12/20/2024 [facility] [address] [place] [address] 12/19/2024 [facility] [address] [place] [address] 12/07/2024 [facility] [address] [place] [address] 12/02/2024 [facility] [address] [place] [address] 10/14/2024 [facility] [address] [place] [address] 08/02/2025 Frankie Ruma [facility] [address] [place] [address] 07/24/2025 Frankie Jacksay Ureteral stent prese nt Z96.0 and Malignant neoplasm of prostate C61 [facility] [address] [place] [address] 07/24/2025 Ila Fischer [facility] [address] [place] [address] 07/20/2025 [facility] [address] [place] [address] 06/28/2025 Frankie Hendrix [facility] [address] [place] [address] [address] [place] [address] 06/28/2025 Frankie Hendrix [facility] [address] [place] [address] [address] [place] [address] 06/27/2025 Frankie Hendrix Assessments Encounter Date Diagnosis (ICD Code) Assessment Notes Treatment Notes Treatment Clinical Notes Section Notes 12/20/2024 Unspecified Escherichia coli [E. coli] as the cause of diseases classified elsewhere (ICD-10 - B96.20) 1. R ureter obstruction, severe hydronephrosis, chronic contracted bladder - s/p Right ureteral stent exchange on March 08, 2024. - to be seen this week at [facility] for ileal conduit and urinary diversion 2. Last seen here in clinic April 2024 Patient recently released from [facility], no medical records to review, per patient and daughter UTI sepsis and back infection I will request records 3. Nephrostomy tubes in place bilaterally, seen by Dr. Hendrix today Per patient report seen by [facility], not stable for ileal conduit surgery at this time 4. Intractable back pain abdominal pain hip pain, will refer patient to the emergency room for evaluation He will need close follow-up in the clinic 12/20/2024 Pyelonephritis (ICD-10 - N12) 1. R ureter obstruction, severe hydronephrosis, chronic contracted bladder - s/p Right ureteral stent exchange on March 08, 2024. - to be seen this week at [facility] for ileal conduit and urinary diversion 2. Last seen here in clinic April 2024 Patient recently released from [facility], no medical records to review, per patient and daughter UTI sepsis and back infection I will request records 3. Nephrostomy tubes in place bilaterally, seen by Dr. Hendrix today Per patient report seen by [facility], not stable for ileal conduit surgery at this time 4. Intractable back pain abdominal pain hip pain, will refer patient to the emergency room for evaluation He will need close follow-up in the clinic 02/01/2025 Pyelonephritis (ICD-10 - N12) 1. 74 [...] (start date 02-01-25) Labs 01-25-25 W 10.3, Horticultural Manager .77, CRP .83 Follow up; 1 month Maria Alejandra Degroot 07/03/2025 Type 2 diabetes mellitus with diabetic chronic kidney disease (ICD-10 - E11.22) 1. 75 yo white male with a history of T2DM, COPD, HTN, GERD, HLD, neuropathy, PTSD 2. History of bladder cancer, ureteral stents, and nephrostomy tubes bilaterally since 03-09-24 3. The patient has R sided abdominal pain, and R sided flank pain, UTI/pyelonephri tis, marci has been isolated -06-11-25; U WBC 90 - urine culture negative frm 06-11-25 (preiously received antibiotics) - 06-12-25; Nephrostomy tubes changed out - U WBC 03-11-25 987 - urine culture 03-11-25 marci tropicalis - 06-09-25; CT scan; Bilateral percutaneous nephrostomy tube which appear to be in good 2) air in the right and left pelvicalyceal systems which is not significantly changed compared to 06/05/2025 but has progressed since 03/11/2025. This may be a sign of infection. 3) stranding around the right pelvicaliceal system which is unchanged - consult urology about changing out the nephrostomy tubes 4. s/p therapy for L3,4 discitis -2024. MRI here is negative for active discitis, he is asymptomatic, low probability for progressive, or recurrent discitis 5. Antibiotics (s/p Nephrostomy changes 06-12-25) day #14: home on fortaz, and PO fluconazole - duration of therapy, both 14 days s/p nephrostomy change Completed 07-03-25 6. UTI prophylaxis, DC fosfomycin, Begin methenamine hippurate 1 g twice daily with vitamin C 500 mg twice daily Recheck labs and urine studies and follow-up with Dr. Man in 2 weeks 07/03/2025 Nephrostomy status (ICD-10 - Z93.6) 1. 75 yo white male with a history of T2DM, COPD, HTN, GERD, HLD, neuropathy, PTSD 2. History of bladder cancer, ureteral stents, and nephrostomy tubes bilaterally since 03-09-24 3. The patient has R sided abdominal pain, and R sided flank pain, UTI/pyelonephri tis, marci has been isolated -06-11-25; U WBC 90 - urine culture negative frm 06-11-25 (preiously received antibiotics) - 06-12-25; Nephrostomy tubes changed out - U WBC 03-11-25 987 - urine culture 03-11-25 marci tropicalis - 06-09-25; CT scan; Bilateral percutaneous nephrostomy tube which appear to be in good 2) air in the right and left pelvicalyceal systems which is not significantly changed compared to 06/05/2025 but has progressed since 03/11/2025. This may be a sign of infection. 3) stranding around the right pelvicaliceal system which is unchanged - consult urology about changing out the nephrostomy tubes 4. s/p therapy for L3,4 discitis -2024. MRI here is negative for active discitis, he is asymptomatic, low probability for progressive, or recurrent discitis 5. Antibiotics (s/p Nephrostomy changes 06-12-25) day #14: home on fortaz, and PO fluconazole - duration of therapy, both 14 days s/p nephrostomy change Completed 07-03-25 6. UTI prophylaxis, DC fosfomycin, Begin methenamine hippurate 1 g twice daily with vitamin C 500 mg twice daily Recheck labs and urine studies and follow-up with Dr. Man in 2 weeks 07/17/2025 Type 2 diabetes mellitus with diabetic chronic kidney disease (ICD-10 - E11.22) 1. 75 yo white male with a history of T2DM, COPD, HTN, GERD, HLD, neuropathy, PTSD 2. History of bladder cancer, ureteral stents, and nephrostomy tubes bilaterally since 03-09-24 3. , UTI/pyelonephri tis, marci has been isolated - resolved - urine culture 03-11-25 marci tropicalis - 06-09-25; CT scan; Bilateral percutaneous nephrostomy tube which appear to be in good 2) air in the right and left pelvicalyceal systems which is not significantly changed compared to 06/05/2025 but has progressed since 03/11/2025. This may be a sign of infection. 3) stranding around the right pelvicaliceal system which is unchanged - consult urology about changing out the nephrostomy tubes 4. s/p therapy for L3,4 discitis . MRI here is negative for active discitis, he is asymptomatic, low probability for progressive, or recurrent discitis 5. Antibiotic for prophylaxis -completed Fortaz, and PO fluconazole on 07-03-25 at day 14 -duration of therapy, both 14 days s/p nephrostomy change on 07-02-25 6. UTI prophylaxis; - Methenamine continue methenamine hippurate 1 g twice daily with vitamin C 500 mg twice daily (started 07-03-25) Labs 07-03-25 UC Neg, UM WBC U 12 Follow up; Maria Alejandra Degroot 07/17/2025 Nephrostomy status (ICD-10 - Z93.6) 1. 75 yo white male with a history of T2DM, COPD, HTN, GERD, HLD, neuropathy, PTSD 2. History of bladder cancer, ureteral stents, and nephrostomy tubes bilaterally since 03-09-24 3. , UTI/pyelonephri tis, marci has been isolated - resolved - urine culture 03-11-25 marci tropicalis - 06-09-25; CT scan; Bilateral percutaneous nephrostomy tube which appear to be in good 2) air in the right and left pelvicalyceal systems which is not significantly changed compared to 06/05/2025 but has progressed since 03/11/2025. This may be a sign of infection. 3) stranding around the right pelvicaliceal system which is unchanged - consult urology about changing out the nephrostomy tubes 4. s/p therapy for L3,4 discitis . MRI here is negative for active discitis, he is asymptomatic, low probability for progressive, or recurrent discitis 5. Antibiotic for prophylaxis -completed Fortaz, and PO fluconazole on 07-03-25 at day 14 -duration of therapy, both 14 days s/p nephrostomy change on 07-02-25 6. 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 74 [...] findings in urine (ICD-10 - R82.998) 12/20/2024 Bilateral hydronephrosis (ICD-10 - N13.30) 12/20/2024 Personal history of prostate cancer (ICD-10 - Z85.46) 12/20/2024 Bladder disorder (ICD-10 - N32.9) 03/31/2025 Personal history of malignant neoplasm of prostate (ICD-10 - Z85.46) EBRT IN THE PAST, HAS CAUSED ISSUES WITH BLADDER 03/31/2025 Nephrostomy status (ICD-10 - Z93.6) 01/25/2025 Unspecified Escherichia coli [E. coli] as [...] in house today follow-up in 1 week 07/24/2025 Malignant neoplasm of prostate (ICD-10 - C61) 07/17/2025 Obstructive pyelonephritis (ICD-10 - N11.1) 1. 75 yo white male with a history of T2DM, COPD, HTN, GERD, HLD, neuropathy, PTSD 2. History of bladder cancer, ureteral stents, and nephrostomy tubes bilaterally since 03-09-24 3. , UTI/pyelonephri tis, marci has been isolated - resolved - urine culture 6-7-25 marci tropicalis - 06-09-25; CT scan; Bilateral percutaneous nephrostomy tube which appear to be in good 2) air in the right and left pelvicalyceal systems which is not significantly changed compared to 06/05/2025 but has progressed since 03/11/2025. This may be a sign of infection. 3) stranding around the right pelvicaliceal system which is unchanged - consult urology about changing out the nephrostomy tubes 4. s/p therapy for L3,4 discitis -2024. MRI here is negative for active discitis, he is asymptomatic, low probability for progressive, or recurrent discitis 5. Antibiotic for prophylaxis -completed Fortaz, and PO fluconazole on 07-03-25 at day 14 -duration of therapy, both 14 days s/p nephrostomy change on 07-02-25 6. 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 75 yo white male with a history of T2DM, COPD, HTN, GERD, HLD, neuropathy, PTSD 2. History of bladder cancer, ureteral stents, and nephrostomy tubes bilaterally since 03-09-24 3. The patient has R sided abdominal pain, and R sided flank pain, UTI/pyelonephri tis, marci has been isolated -06-11-25; U WBC 90 - urine culture negative fr 06-11-25 (preiously received antibiotics) - 06-12-25; Nephrostomy tubes changed out - U WBC 03-11-25 987 - urine culture 03-11-25 marci tropicalis - 06-09-25; CT scan; Bilateral percutaneous nephrostomy tube which appear to be in good 2) air in the right and left pelvicalyceal systems which is not significantly changed compared to 06/05/2025 but has progressed since 03/11/2025. This may be a sign of infection. 3) stranding around the right pelvicaliceal system which is unchanged - consult urology about changing out the nephrostomy tubes 4. s/p therapy for L3,4 discitis -2024. MRI here is negative for active discitis, he is asymptomatic, low probability for progressive, or recurrent discitis 5. Antibiotics (s/p Nephrostomy changes 06-12-25) day #14: home on fortaz, and PO fluconazole - duration of therapy, both 14 days s/p nephrostomy change Completed 07-03-25 6. UTI prophylaxis, DC fosfomycin, Begin methenamine hippurate 1 g twice daily with vitamin C 500 mg twice daily Recheck labs and urine studies and follow-up with Dr. Man in 2 weeks 02/01/2025 Unspecified Escherichia coli [E. 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 R ureter obstruction, severe hydronephrosis, chronic contracted bladder - s/p Right ureteral stent exchange on March 08, 2024. - to be seen this week at [facility] for ileal conduit and urinary diversion 2. Last seen here in clinic April 2024 Patient recently released from [facility], no medical records to review, per patient and daughter UTI sepsis and back infection I will request records 3. Nephrostomy tubes in place bilaterally, seen by Dr. Hendrix today Per patient report seen by [facility], not stable for ileal conduit surgery at this time 4. Intractable back pain abdominal pain hip pain, will refer patient to the emergency room for evaluation He will need close follow-up in the clinic 12/20/2024 Hydronephrosis, unspecified hydronephrosis type (ICD-10 - N13.30) 1. R ureter obstruction, severe hydronephrosis, chronic contracted bladder - s/p Right ureteral stent exchange on March 08, 2024. - to be seen this week at [facility] for ileal conduit and urinary diversion 2. Last seen here in clinic April 2024 Patient recently released from [facility], no medical records to review, per patient and daughter UTI sepsis and back infection I will request records 3. Nephrostomy tubes in place bilaterally, seen by Dr. Hendrix today Per patient report seen by [facility], not stable for ileal conduit surgery [...] (start date 02-01-25) Labs 01-25-25 W 10.3, Horticultural Manager .77, CRP .83 Follow up; 1 month Maria Alejandra Jims 07/24/2025 Personal history of malignant neoplasm of prostate (ICD-10 - Z85.46) 01/25/2025 Extended spectrum beta lactamase (ESBL) resistance [...] with marci tropicalis -12-20-24; UC with Yeast- 3-18-25 U WBC >999 - the combination of [...] house today follow-up in 1 week 03/31/2025 Ureteral stent present (ICD-10 - Z96.0) 03/31/2025 History of external beam radiation therapy (ICD-10 - Z92.3) SEE ABOVE NOTE 03/31/2025 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 R ureter obstruction, severe hydronephrosis, chronic contracted bladder - s/p Right ureteral stent exchange on March 08, 2024. - to be seen this week at [facility] for ileal conduit and urinary diversion 2. Last seen here in clinic April 2024 Patient recently released from [facility], no medical records to review, per patient and daughter UTI sepsis and back infection I will request records 3. Nephrostomy tubes in place bilaterally, seen by Dr. Hendrix today Per patient report seen by [facility], not stable for ileal conduit surgery at this time 4. Intractable back pain abdominal pain hip pain, will refer patient to the emergency room for evaluation He will need close follow-up in the clinic 12/20/2024 Other abnormal findings in urine (ICD-10 [...] house today follow-up in 1 week 12/20/2024 Intractable pain (ICD-10 - R52) 1. R ureter obstruction, severe hydronephrosis, chronic contracted bladder - s/p Right ureteral stent exchange on March 08, 2024. - to be seen this week at [facility] for ileal conduit and urinary diversion 2. Last seen here in clinic April 2024 Patient recently released from [facility], no medical records to review, per patient and daughter UTI sepsis and back infection I will request records 3. Nephrostomy tubes in place bilaterally, seen by Dr. Hendrix today Per patient report seen by [facility], not stable for ileal conduit surgery at this time 4. Intractable back pain abdominal pain hip pain, will refer patient to the emergency room for evaluation He will need close follow-up in the clinic 02/01/2025 Ureteral stent present (ICD-10 - Z96.0) [...] (start date 02-01-25) Labs 01-25-25 W 10.3, Horticultural Manager .77, CRP .83 Follow up; 1 month Maria Alejandra Degroot 01/25/2025 Intractable pain (ICD-10 - R52) 1. [...] house today follow-up in 1 week 02/01/2025 Intractable pain (ICD-10 - R52) 1. [...] (start date 02-01-25) Labs 01-25-25 W 10.3, Horticultural Manager .77, CRP .83 Follow up; 1 month Maria Alejandra Degroot 12/20/2024 Nephrostomy status (ICD-10 - Z93.6) 1. R ureter obstruction, severe hydronephrosis, chronic contracted bladder - s/p Right ureteral stent exchange on March 08, 2024. - to be seen this week at [facility] for ileal conduit and urinary diversion 2. Last seen here in clinic April 2024 Patient recently released from [facility], no medical records to review, per patient and daughter UTI sepsis and back infection I will request records 3. Nephrostomy tubes in place bilaterally, seen by Dr. Hendrix today Per patient report seen by [facility], not stable for ileal conduit surgery [...] (start date 02-01-25) Labs 01-25-25 W 10.3, Horticultural Manager .77, CRP .83 Follow up; 1 month [...] today follow-up in 1 week 12/20/2024 Other Schedule bilateral percutaneous nephrostomy tube exchange with interventional radiology at [facility]. These will need to be changed every 3 months. cbc, bmp, PSA now. It may have been at the [facility] today. Please obtain and if it is that is fine. follow up 3 months with nurse pracdtitioner. Emi urine from each PCNL. 12/20/[address] Man, referring patient to the emergency room for intractable pain evaluation No medical records from [facility] to review 1. R ureter obstruction, severe hydronephrosis, chronic contracted bladder - s/p Right ureteral stent exchange on March 08, 2024. - to be seen this week at [facility] for ileal conduit and urinary diversion 2. Last seen here in clinic April 2024 Patient recently released from [facility], no medical records to review, per patient and daughter UTI sepsis and back infection I will request records 3. Nephrostomy tubes in place bilaterally, seen by Dr. Hendrix today Per patient report seen by [facility], not stable for ileal conduit surgery at this time 4. Intractable back pain abdominal pain hip pain, will refer patient to the emergency room for evaluation He will need close follow-up in the clinic 03/31/2025 Other FOLLOW UP IN 3 MONTHS UA, CT ABDOMEN NO CONTRAST, CBC, CMP - IMAGING MUST BE DONE AT [facility], ON LICENSE OF [facility] SEND ORDER FOR NEPHROSTOMY TUBE EXCHANGE OUTPATIENT TO BE COMPLETED IN EARLY MAY TO RADIOLOGY FOR DR CAMACHO OR DR HOUSER 07/03/2025 Other Hospital record s reviewed, medication list reviewed and reconciled 1. 75 yo white male with a history of T2DM, COPD, HTN, GERD, HLD, neuropathy, PTSD 2. History of bladder cancer, ureteral stents, and nephrostomy tubes bilaterally since 03-09-24 3. The patient has R sided abdominal pain, and R sided flank pain, UTI/pyelonephri tis, marci has been isolated -06-11-25; U WBC 90 - urine culture negative frm 06-11-25 (preiously received antibiotics) - 06-12-25; Nephrostomy tubes changed out - U WBC 03-11-25 987 - urine culture 03-11-25 marci tropicalis - 06-09-25; CT scan; Bilateral percutaneous nephrostomy tube which appear to be in good 2) air in the right and left pelvicalyceal systems which is not significantly changed compared to 06/05/2025 but has progressed since 03/11/2025. This may be a sign of infection. 3) stranding around the right pelvicaliceal system which is unchanged - consult urology about changing out the nephrostomy tubes 4. s/p therapy for L3,4 discitis -2024. MRI here is negative for active discitis, he is asymptomatic, low probability for progressive, or recurrent discitis 5. Antibiotics (s/p Nephrostomy changes 06-12-25) day #14: home on fortaz, and PO fluconazole - duration of therapy, both 14 days s/p nephrostomy change Completed 07-03-25 6. UTI prophylaxis, DC fosfomycin, Begin methenamine hippurate 1 g twice daily with vitamin C 500 mg twice daily Recheck labs and urine studies and follow-up with Dr. Man in 2 weeks 07/24/2025 Other PATIENT HAD NEPHROSTOMY TUBES CHANGED ON 06/12/2025 - WILL NEED PATIENT TO BE SET UP FOR NEPHROSTOMY TUBES TO BE EXCHANGES AROUND 1ST TO 2ND WEEK OF AUGUST PATIENT TO CONTINUE TO FOLLOW DR MAN, AND NURY VIZCAINO STANDARD OF CARE. TAKE PROPHYLAXIS DEEMED APPROPRIATE, AND IF INFECTION IS SUSPECTED, FOLLOW THEIR PLAN THEY HAVE LAID OUT. PATIENT TO HAVE PSA, CBC, CMP, RANJANA ALL COMPLETED AT [facility] - NO LABS OR IMAGING TO BE COMPLETED AT [facility], THEY WILL NOT BE ACCEPTED FOLLOW UP IN 3 MONTHS Plan Of Treatment Pending Test Test Name Order Date Culture Urine [id number] 06/11/2025 PSA Diagnostic--[id number] 05/26/2024 Future Test Test Name Order Date CBC w\ Auto Diff [id number] 06/05/2025 Comprehensive Metabolic Panel (CMP) 8005 3 06/05/2025 CT Abdomen w/o Contrast-[id number] 06/05/2025 CBC w\ Auto Diff [id number] 10/05/2025 Comprehensive Metabolic Panel (CMP) 8005 3 10/05/2025 PSA Diagnostic--[id number] 10/05/2025 US Renal w/bladder-[id number] 10/05/2025 Next Appt Details Provider Name:John buchanan, 08/15/2025 01:00:00 PM, [address], [address], [place], [address], Provider Name:Ila Godwin, 10/24/2025 01:00:00 PM, [address], [place], [address], Insurance Providers Payer Name Payer Address Payer Phone Subscriber Number Group Number Insured Name Patient Relationship to Insured Coverage Start Date Coverage End Date [employer] [address] [place] [address] [id number] Toyin Aki Self - patient is the insured Out of Network [facility] Medicare Replacement [address] [address] [place] [address] [phone] [id number] Toyin Aki Self - patient is the insured Medical [...]
--- OUTSIDE RECORDS SUMMARY | 2025-08-06 19:11 | XMS_ITS | Continuity of Care Document ---
Author Organization [employer] ([facility]) Address [address] [place] [address] Insurance Providers Payer Plan Claims Address Claims Phone Policy Number Group Number Relation Employer Guarantor Name Guarantor Guarantor Address Guarantor Phone MEDICA RE MEDIC ARE tel:[phone] [employer] RE ADVANT AGE [facility] ARE MEDIC ARE [address] [address]AGE [address] [address], [place] [address] tel:[phone] TRICAR E TRICA RE [address], [place] [address] [id number] Problems Condition ICD9 code ICD10 code SNOMED code Start Date End Date S tatus Paroxysmal atrial fibrillation I48.0 05/27/2023 Active half-way (current) use of anticoagulants Z79.01 06/14/2024 Active [...] obstructive pulmonary disease, unspecified J44.9 06/02/2023 Active half-way (current) use 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 Z79.51 05/27/2023 [...] with diabetic neuropathy, unspecified E11.40 06/02/2023 Active 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 05/27/2023 Active 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) use of oral hypoglycemic drugs Z79.84 [...] 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 11/18/2024 Active 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 11/18/2024 Active half-way (current) use of oral hypoglycemic drugs Z79.84 11/18/2024 Active Hypertensive heart and chronic kidney disease with heart failure and stage 1 through stage 4 chronic kidney disease, or unspecified chronic kidney disease I13.0 11/18/2024 Active Heart failure, unspecified I50.9 11/18/2024 Active Chronic kidney disease, stage 3 unspecified N18.30 11/18/2024 Activ e Chronic obstructive pulmonary disease, unspecified J44.9 11/18/2024 Active half-way (current) use 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 Z79.51 11/18/2024 [...] Active Anxiety disorder, unspecified F41.9 12/28/2024 Active half-way (current) use of antibiotics Z79.2 02/02/2025 Active Neuromuscular dysfunction of bladder, 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 Refere nce Range Blood chemistry[[id number]] Glucose [Mass/volume] in Serum or Plasma [2345-7] 08/06/2025 05:26 PM 244 mg/dL N Blood chemistry[[id number]] Glucose [Mass/volume] in Serum or Plasma [2345-7] 08/06/2025 10:03 AM 129 mg/dL N Blood chemistry[[id number]] Glucose [Mass/volume] in Serum or Plasma [2345-7] 08/06/2025 12:32 PM 148 mg/dL N Blood chemistry[[id number]] Glucose [Mass/volume] in Serum or Plasma [2345-7] 08/05/2025 02:48 PM 188 mg/dL N Blood chemistry[[id number]] Glucose [Mass/volume] in Serum or Plasma [2345-7] 08/05/2025 04:15 PM 320 mg/dL N Blood chemistry[[id number]] Glucose [Mass/volume] in Serum or Plasma [2345-7] 08/05/2025 09:20 AM 253 mg/dL N Blood chemistry[[id number]] Glucose [Mass/volume] in Serum or Plasma [2345-7] 08/05/2025 11:43 AM 235 mg/dL N Blood chemistry[[id number]] Glucose [Mass/volume] in Serum or Plasma [2345-7] 08/04/2025 03:52 PM 215 mg/dL N Blood chemistry[[id number]] Glucose [Mass/volume] in Serum or Plasma [2345-7] 08/04/2025 04:02 PM 146 mg/dL N Blood chemistry[[id number]] Glucose [Mass/volume] in Serum or Plasma [2345-7] 08/04/2025 08:28 AM 227 mg/dL N Blood chemistry[[id number]] Glucose [Mass/volume] in Serum or Plasma [2345-7] 08/04/2025 11:30 AM 180 mg/dL N Blood chemistry[[id number]] Glucose [Mass/volume] in Serum or Plasma [2345-7] 08/03/2025 03:51 PM 195 mg/dL N Blood chemistry[[id number]] Glucose [Mass/volume] in Serum or Plasma [2345-7] 08/03/2025 04:44 PM 148 mg/dL N Blood chemistry[[id number]] Glucose [Mass/volume] in Serum or Plasma [2345-7] 08/03/2025 09:21 AM 125 mg/dL N Blood chemistry[[id number]] Glucose [Mass/volume] in Serum or Plasma [2345-7] 08/03/2025 11:29 AM 233 mg/dL N Blood chemistry[[id number]] Glucose [Mass/volume] in Serum or Plasma [2345-7] 08/02/2025 01:00 PM 217 mg/dL N Blood chemistry[[id number]] Glucose [Mass/volume] in Serum or Plasma [2345-7] 08/02/2025 04:24 PM 286 mg/dL N Blood chemistry[[id number]] Glucose [Mass/volume] in Serum or Plasma [2345-7] 08/02/2025 10:06 AM 259 mg/dL N Blood chemistry[[id number]] Glucose [Mass/volume] in Serum or Plasma [2345-7] 08/02/2025 11:27 AM 231 mg/dL N Blood chemistry[[id number]] Glucose [Mass/volume] in Serum or Plasma [2345-7] 08/01/2025 12:24 PM 230 mg/dL N Blood chemistry[[id number]] Glucose [Mass/volume] in Serum or Plasma [2345-7] 08/01/2025 04:03 PM 208 mg/dL N Blood chemistry[[id number]] Glucose [Mass/volume] in Serum or Plasma [2345-7] 08/01/2025 09:16 AM 191 mg/dL N Blood chemistry[[id number]] Glucose [Mass/volume] in Serum or Plasma [2345-7] 08/01/2025 12:29 PM 246 mg/dL N Blood chemistry[[id number]] Glucose [Mass/volume] in Serum or Plasma [2345-7] 07/31/2025 12:45 PM 284 mg/dL N Blood chemistry[[id number]] Glucose [Mass/volume] in Serum or Plasma [2345-7] 07/31/2025 10:52 AM 175 mg/dL N Blood chemistry[[id number]] Glucose [Mass/volume] in Serum or Plasma [2345-7] 07/31/2025 04:18 PM 244 mg/dL N Blood chemistry[[id number]] Glucose [Mass/volume] in Serum or Plasma [2345-7] 07/31/2025 11:27 AM 200 mg/dL N Blood chemistry[[id number]] Glucose [Mass/volume] in Serum or Plasma [2345-7] 07/30/2025 12:42 PM 101 mg/dL N Blood chemistry[[id number]] Glucose [Mass/volume] in Serum or Plasma [2345-7] 07/30/2025 05:15 PM 357 mg/dL N Blood chemistry[[id number]] Glucose [Mass/volume] in Serum or Plasma [2345-7] 07/30/2025 09:07 AM 105 mg/dL N Blood chemistry[[id number]] Glucose [Mass/volume] in Serum or Plasma [2345-7] 07/30/2025 01:17 PM 177 mg/dL N Blood chemistry[[id number]] Glucose [Mass/volume] in Serum or Plasma [2345-7] 07/29/2025 03:38 PM 171 mg/dL N Blood chemistry[[id number]] Glucose [Mass/volume] in Serum or Plasma [2345-7] 07/29/2025 10:18 AM 134 mg/dL N Blood chemistry[[id number]] Glucose [Mass/volume] in Serum or Plasma [2345-7] 07/29/2025 04:55 PM 305 mg/dL N Blood chemistry[[id number]] Glucose [Mass/volume] in Serum or Plasma [2345-7] 07/29/2025 12:56 PM 190 mg/dL N Blood chemistry[[id number]] Glucose [Mass/volume] in Serum or Plasma [2345-7] 07/28/2025 04:50 PM 171 mg/dL N Blood chemistry[[id number]] Glucose [Mass/volume] in Serum or Plasma [2345-7] 07/28/2025 05:33 PM 151 mg/dL N Blood chemistry[[id number]] Glucose [Mass/volume] in Serum or Plasma [2345-7] 07/28/2025 12:38 PM 223 mg/dL N Blood chemistry[[id number]] Glucose [Mass/volume] in Serum or Plasma [2345-7] 07/28/2025 09:42 AM 249 mg/dL N Blood chemistry[[id number]] Glucose [Mass/volume] in Serum or Plasma [2345-7] 07/28/2025 07:18 AM 175 mg/dL N Blood chemistry[[id number]] Glucose [Mass/volume] in Serum or Plasma [2345-7] 07/27/2025 10:32 AM 256 mg/dL N Blood chemistry[[id number]] Glucose [Mass/volume] in Serum or Plasma [2345-7] 07/27/2025 04:05 PM 270 mg/dL N Blood chemistry[[id number]] Glucose [Mass/volume] in Serum or Plasma [2345-7] 07/27/2025 11:38 AM 252 mg/dL N Blood chemistry[[id number]] Glucose [Mass/volume] in Serum or Plasma [2345-7] 07/26/2025 01:33 PM 279 mg/dL N Blood chemistry[[id number]] Glucose [Mass/volume] in Serum or Plasma [2345-7] 07/26/2025 04:20 PM 236 mg/dL N Blood chemistry[[id number]] Glucose [Mass/volume] in Serum or Plasma [2345-7] 07/26/2025 09:16 AM 284 mg/dL N Blood chemistry[[id number]] Glucose [Mass/volume] in Serum or Plasma [2345-7] 07/26/2025 11:45 AM 257 mg/dL N Blood chemistry[[id number]] Glucose [Mass/volume] in Serum or Plasma [2345-7] 07/25/2025 04:23 PM 266 mg/dL N Blood chemistry[[id number]] Glucose [Mass/volume] in Serum or Plasma [2345-7] 07/25/2025 03:52 PM 301 mg/dL N Blood chemistry[[id number]] Glucose [Mass/volume] in Serum or Plasma [2345-7] 07/25/2025 08:55 AM 296 mg/dL N Blood chemistry[[id number]] Glucose [Mass/volume] in Serum or Plasma [2345-7] 07/25/2025 11:28 AM 174 mg/dL N Blood chemistry[[id number]] Glucose [Mass/volume] in Serum or Plasma [2345-7] 07/24/2025 12:51 PM 148 mg/dL N Blood chemistry[[id number]] Glucose [Mass/volume] in Serum or Plasma [2345-7] 07/24/2025 10:45 AM 112 mg/dL N Blood chemistry[[id number]] Glucose [Mass/volume] in Serum or Plasma [2345-7] 07/24/2025 05:15 PM 122 mg/dL N Blood chemistry[[id number]] Glucose [Mass/volume] in Serum or Plasma [2345-7] 07/24/2025 02:03 PM 246 mg/dL N Blood chemistry[[id number]] Glucose [Mass/volume] in Serum or Plasma [2345-7] 07/23/2025 04:26 PM 319 mg/dL N Blood chemistry[[id number]] Glucose [Mass/volume] in Serum or Plasma [2345-7] 07/23/2025 09:36 AM 171 mg/dL N Blood chemistry[[id number]] Glucose [Mass/volume] in Serum or Plasma [2345-7] 07/23/2025 12:56 PM 274 mg/dL N Blood chemistry[[id number]] Glucose [Mass/volume] in Serum or Plasma [2345-7] 07/22/2025 04:06 PM 213 mg/dL N Blood chemistry[[id number]] Glucose [Mass/volume] in Serum or Plasma [2345-7] 07/22/2025 10:02 AM 236 mg/dL N Blood chemistry[[id number]] Glucose [Mass/volume] in Serum or Plasma [2345-7] 07/22/2025 11:24 AM 302 mg/dL N Blood chemistry[[id number]] Glucose [Mass/volume] in Serum or Plasma [2345-7] 07/21/2025 04:46 PM 226 mg/dL N Blood chemistry[[id number]] Glucose [Mass/volume] in Serum or Plasma [2345-7] 07/21/2025 09:19 AM 186 mg/dL N Blood chemistry[[id number]] Glucose [Mass/volume] in Serum or Plasma [2345-7] 07/21/2025 11:32 AM 227 mg/dL N Blood chemistry[[id number]] Glucose [Mass/volume] in Serum or Plasma [2345-7] 07/20/2025 11:54 AM 226 mg/dL N Blood chemistry[[id number]] Glucose [Mass/volume] in Serum or Plasma [2345-7] 07/20/2025 04:14 PM 224 mg/dL N Blood chemistry[[id number]] Glucose [Mass/volume] in Serum or Plasma [2345-7] 07/20/2025 09:03 AM 192 mg/dL N Blood chemistry[[id number]] Glucose [Mass/volume] in Serum or Plasma [2345-7] 07/20/2025 11:59 AM 221 mg/dL N Blood chemistry[[id number]] Glucose [Mass/volume] in Serum or Plasma [2345-7] 07/19/2025 01:43 PM 108 mg/dL N Blood chemistry[[id number]] Glucose [Mass/volume] in Serum or Plasma [2345-7] 07/19/2025 04:24 PM 164 mg/dL N Blood chemistry[[id number]] Glucose [Mass/volume] in Serum or Plasma [2345-7] 07/19/2025 09:43 AM 185 mg/dL N Blood chemistry[[id number]] Glucose [Mass/volume] in Serum or Plasma [2345-7] 07/19/2025 11:52 AM 184 mg/dL N Blood chemistry[[id number]] Glucose [Mass/volume] in Serum or Plasma [2345-7] 07/19/2025 06:54 AM 174 mg/dL N Blood chemistry[[id number]] Glucose [Mass/volume] in Serum or Plasma [2345-7] 07/18/2025 04:51 PM 257 mg/dL N Blood chemistry[[id number]] Glucose [Mass/volume] in Serum or Plasma [2345-7] 07/18/2025 08:57 AM 124 mg/dL N Blood chemistry[[id number]] Glucose [Mass/volume] in Serum or Plasma [2345-7] 07/18/2025 12:20 PM 257 mg/dL N Blood chemistry[[id number]] Glucose [Mass/volume] in Serum or Plasma [2345-7] 07/18/2025 05:25 PM 222 mg/dL N Blood chemistry[[id number]] Glucose [Mass/volume] in Serum or Plasma [2345-7] 07/17/2025 09:36 AM 208 mg/dL N Blood chemistry[[id number]] Glucose [Mass/volume] in Serum or Plasma [2345-7] 07/17/2025 04:12 PM 309 mg/dL N Blood chemistry[[id number]] Glucose [Mass/volume] in Serum or Plasma [2345-7] 07/17/2025 12:48 PM 313 mg/dL N Blood chemistry[[id number]] Glucose [Mass/volume] in Serum or Plasma [2345-7] 07/16/2025 04:32 PM 317 mg/dL N Blood chemistry[[id number]] Glucose [Mass/volume] in Serum or Plasma [2345-7] 07/16/2025 09:47 AM 214 mg/dL N Blood chemistry[[id number]] Glucose [Mass/volume] in Serum or Plasma [2345-7] 07/16/2025 12:15 PM 197 mg/dL N Blood chemistry[[id number]] Glucose [Mass/volume] in Serum or Plasma [2345-7] 07/15/2025 04:44 PM 191 mg/dL N Blood chemistry[[id number]] Glucose [Mass/volume] in Serum or Plasma [2345-7] 07/15/2025 04:26 PM 280 mg/dL N Blood chemistry[[id number]] Glucose [Mass/volume] in Serum or Plasma [2345-7] 07/15/2025 09:52 AM 118 mg/dL N Blood chemistry[[id number]] Glucose [Mass/volume] in Serum or Plasma [2345-7] 07/15/2025 12:25 PM 209 mg/dL N Blood chemistry[[id number]] Glucose [Mass/volume] in Serum or Plasma [2345-7] 07/14/2025 04:10 PM 209 mg/dL N Blood chemistry[[id number]] Glucose [Mass/volume] in Serum or Plasma [2345-7] 07/14/2025 10:14 AM 207 mg/dL N Blood chemistry[[id number]] Glucose [Mass/volume] in Serum or Plasma [2345-7] 07/14/2025 12:12 PM 211 mg/dL N Blood chemistry[[id number]] Glucose [Mass/volume] in Serum or Plasma [2345-7] 07/14/2025 06:28 AM 205 mg/dL N Blood chemistry[[id number]] Glucose [Mass/volume] in Serum or Plasma [2345-7] 07/13/2025 03:46 PM 283 mg/dL N Blood chemistry[[id number]] Glucose [Mass/volume] in Serum or Plasma [2345-7] 07/13/2025 09:01 AM 315 mg/dL N Blood chemistry[[id number]] Glucose [Mass/volume] in Serum or Plasma [2345-7] 07/13/2025 11:23 AM 239 mg/dL N Blood chemistry[[id number]] Glucose [Mass/volume] in Serum or Plasma [2345-7] 07/12/2025 03:58 PM 233 mg/dL N Blood chemistry[[id number]] Glucose [Mass/volume] in Serum or Plasma [2345-7] 07/12/2025 04:16 PM 315 mg/dL N Blood chemistry[[id number]] Glucose [Mass/volume] in Serum or Plasma [2345-7] 07/12/2025 09:12 AM 261 mg/dL N Blood chemistry[[id number]] Glucose [Mass/volume] in Serum or Plasma [2345-7] 07/12/2025 11:27 AM 300 mg/dL N Blood chemistry[[id number]] Glucose [Mass/volume] in Serum or Plasma [2345-7] 07/11/2025 12:42 PM 183 mg/dL N Blood chemistry[[id number]] Glucose [Mass/volume] in Serum or Plasma [2345-7] 07/11/2025 04:14 PM 285 mg/dL N Blood chemistry[[id number]] Glucose [Mass/volume] in Serum or Plasma [2345-7] 07/11/2025 08:26 AM 198 mg/dL N Blood chemistry[[id number]] Glucose [Mass/volume] in Serum or Plasma [2345-7] 07/11/2025 11:36 AM 232 mg/dL N Blood chemistry[[id number]] Glucose [Mass/volume] in Serum or Plasma [2345-7] 07/10/2025 01:08 PM 327 mg/dL N Blood chemistry[[id number]] Glucose [Mass/volume] in Serum or Plasma [2345-7] 07/10/2025 03:49 PM 299 mg/dL N Blood chemistry[[id number]] Glucose [Mass/volume] in Serum or Plasma [2345-7] 07/10/2025 09:37 AM 274 mg/dL N Blood chemistry[[id number]] Glucose [Mass/volume] in Serum or Plasma [2345-7] 07/10/2025 11:33 AM 204 mg/dL N Blood chemistry[[id number]] Glucose [Mass/volume] in Serum or Plasma [2345-7] 07/09/2025 11:08 AM 174 mg/dL N Blood chemistry[[id number]] Glucose [Mass/volume] in Serum or Plasma [2345-7] 07/09/2025 04:10 PM 287 mg/dL N Blood chemistry[[id number]] Glucose [Mass/volume] in Serum or Plasma [2345-7] 07/09/2025 08:44 AM 241 mg/dL N Blood chemistry[[id number]] Glucose [Mass/volume] in Serum or Plasma [2345-7] 07/09/2025 10:58 AM 315 mg/dL N Blood chemistry[[id number]] Glucose [Mass/volume] in Serum or Plasma [2345-7] 07/08/2025 12:11 PM 225 mg/dL N Blood chemistry[[id number]] Glucose [Mass/volume] in Serum or Plasma [2345-7] 07/08/2025 04:07 PM 192 mg/dL N Blood chemistry[[id number]] Glucose [Mass/volume] in Serum or Plasma [2345-7] 07/08/2025 08:49 AM 215 mg/dL N Blood chemistry[[id number]] Glucose [Mass/volume] in Serum or Plasma [2345-7] 07/08/2025 11:40 AM 229 mg/dL N Blood chemistry[[id number]] Glucose [Mass/volume] in Serum or Plasma [2345-7] 07/07/2025 11:36 AM 262 mg/dL N Blood chemistry[[id number]] Glucose [Mass/volume] in Serum or Plasma [2345-7] 07/07/2025 04:04 PM 249 mg/dL N Blood chemistry[[id number]] Glucose [Mass/volume] in Serum or Plasma [2345-7] 07/07/2025 09:19 AM 215 mg/dL N Blood chemistry[[id number]] Glucose [Mass/volume] in Serum or Plasma [2345-7] 07/07/2025 11:27 AM 210 mg/dL N Blood chemistry[[id number]] Glucose [Mass/volume] in Serum or Plasma [2345-7] 07/06/2025 01:55 PM 247 mg/dL N Blood chemistry[[id number]] Glucose [Mass/volume] in Serum or Plasma [2345-7] 07/06/2025 04:34 PM 242 mg/dL N Blood chemistry[[id number]] Glucose [Mass/volume] in Serum or Plasma [2345-7] 07/06/2025 08:43 AM 244 mg/dL N Blood chemistry[[id number]] Glucose [Mass/volume] in Serum or Plasma [2345-7] 07/06/2025 11:32 AM 271 mg/dL N Blood chemistry[[id number]] Glucose [Mass/volume] in Serum or Plasma [2345-7] 07/05/2025 03:55 PM 275 mg/dL N Blood chemistry[[id number]] Glucose [Mass/volume] in Serum or Plasma [2345-7] 07/05/2025 04:40 PM 297 mg/dL N Blood chemistry[[id number]] Glucose [Mass/volume] in Serum or Plasma [2345-7] 07/05/2025 09:11 AM 229 mg/dL N Blood chemistry[[id number]] Glucose [Mass/volume] in Serum or Plasma [2345-7] 07/05/2025 11:12 AM 194 mg/dL N Blood chemistry[[id number]] Glucose [Mass/volume] in Serum or Plasma [2345-7] 07/04/2025 02:26 PM 261 mg/dL N Blood chemistry[[id number]] Glucose [Mass/volume] in Serum or Plasma [2345-7] 07/04/2025 04:19 PM 173 mg/dL N Blood chemistry[[id number]] Glucose [Mass/volume] in Serum or Plasma [2345-7] 07/04/2025 09:08 AM 146 mg/dL N Blood chemistry[[id number]] Glucose [Mass/volume] in Serum or Plasma [2345-7] 07/04/2025 11:18 AM 163 mg/dL N Blood chemistry[[id number]] Glucose [Mass/volume] in Serum or Plasma [2345-7] 07/04/2025 07:49 AM 185 mg/dL N Blood chemistry[[id number]] Glucose [Mass/volume] in Serum or Plasma [2345-7] 07/03/2025 10:46 AM 180 mg/dL N Blood chemistry[[id number]] Glucose [Mass/volume] in Serum or Plasma [2345-7] 07/03/2025 04:16 PM 272 mg/dL N Blood chemistry[[id number]] Glucose [Mass/volume] in Serum or Plasma [2345-7] 07/03/2025 11:50 AM 198 mg/dL N Blood chemistry[[id number]] Glucose [Mass/volume] in Serum or Plasma [2345-7] 07/02/2025 11:13 AM 165 mg/dL N Blood chemistry[[id number]] Glucose [Mass/volume] in Serum or Plasma [2345-7] 07/02/2025 05:26 PM 168 mg/dL N Blood chemistry[[id number]] Glucose [Mass/volume] in Serum or Plasma [2345-7] 07/02/2025 02:33 PM 158 mg/dL N Blood chemistry[[id number]] Glucose [Mass/volume] in Serum or Plasma [2345-7] 07/02/2025 09:02 AM 166 mg/dL N Blood chemistry[[id number]] Glucose [Mass/volume] in Serum or Plasma [2345-7] 07/01/2025 01:24 PM 149 mg/dL N Blood chemistry[[id number]] Glucose [Mass/volume] in Serum or Plasma [2345-7] 07/01/2025 05:48 PM 297 mg/dL N Blood chemistry[[id number]] Glucose [Mass/volume] in Serum or Plasma [2345-7] 07/01/2025 09:34 AM 117 mg/dL N Blood chemistry[[id number]] Glucose [Mass/volume] in Serum or Plasma [2345-7] 07/01/2025 12:06 PM 209 mg/dL N Blood chemistry[[id number]] Glucose [Mass/volume] in Serum or Plasma [5-7] 06/30/2025 12:58 PM 290 mg/dL N Blood chemistry[[id number]] Glucose [Mass/volume] in Serum or Plasma [5-7] 06/30/2025 04:03 PM 248 mg/dL N Blood chemistry[[id number]] Glucose [Mass/volume] in Serum or Plasma [2344-7] 06/30/2025 08:56 AM 277 mg/dL N Blood chemistry[[id number]] Glucose [Mass/volume] in Serum or Plasma [2344-7] 06/30/2025 11:32 AM 261 mg/dL N Blood chemistry[[id number]] Glucose [Mass/volume] in Serum or Plasma [5-7] 06/29/2025 12:19 PM 131 mg/dL N Blood chemistry[[id number]] Glucose [Mass/volume] in Serum or Plasma [5-7] 06/29/2025 04:25 PM 273 mg/dL N Blood chemistry[[id number]] Glucose [Mass/volume] in Serum or Plasma [5-7] 06/29/2025 09:05 AM 95 mg/dL N Blood chemistry[[id number]] Glucose [Mass/volume] in Serum or Plasma [5-7] 06/29/2025 11:34 AM 210 mg/dL N Blood chemistry[[id number]] Glucose [Mass/volume] in Serum or Plasma [5-7] 06/28/2025 12:49 PM 346 mg/dL N Blood chemistry[[id number]] Glucose [Mass/volume] in Serum or Plasma [5-7] 06/28/2025 03:55 PM 282 mg/dL N Blood chemistry[[id number]] Glucose [Mass/volume] in Serum or Plasma [2345-7] 06/28/2025 08:56 AM 242 mg/dL N Blood chemistry[[id number]] Glucose [Mass/volume] in Serum or Plasma [2345-7] 06/28/2025 12:11 PM 178 mg/dL N Blood chemistry[[id number]] Glucose [Mass/volume] in Serum or Plasma [2345-7] 06/27/2025 03:51 PM 219 mg/dL N Blood chemistry[[id number]] Glucose [Mass/volume] in Serum or Plasma [2345-7] 06/27/2025 04:12 PM 201 mg/dL N Blood chemistry[[id number]] Glucose [Mass/volume] in Serum or Plasma [2345-7] 06/27/2025 09:21 AM 261 mg/dL N Blood chemistry[[id number]] Glucose [Mass/volume] in Serum or Plasma [2345-7] 06/27/2025 11:39 AM 128 mg/dL N Blood chemistry[[id number]] Glucose [Mass/volume] in Serum or Plasma [2345-7] 06/27/2025 07:59 AM 120 mg/dL N Blood chemistry[[id number]] Glucose [Mass/volume] in Serum or Plasma [2345-7] 06/26/2025 10:41 AM 89 mg/dL N Blood chemistry[[id number]] Glucose [Mass/volume] in Serum or Plasma [2345-7] 06/26/2025 05:31 PM 180 mg/dL N Blood chemistry[[id number]] Glucose [Mass/volume] in Serum or Plasma [2345-7] 06/26/2025 01:20 PM 189 mg/dL N Blood chemistry[[id number]] Glucose [Mass/volume] in Serum or Plasma [2345-7] 06/25/2025 01:52 PM 230 mg/dL N Blood chemistry[[id number]] Glucose [Mass/volume] in Serum or Plasma [2345-7] 06/25/2025 04:17 PM 249 mg/dL N Blood chemistry[[id number]] Glucose [Mass/volume] in Serum or Plasma [2345-7] 06/25/2025 08:59 AM 193 mg/dL N Blood chemistry[[id number]] Glucose [Mass/volume] in Serum or Plasma [2345-7] 06/25/2025 11:31 AM 207 mg/dL N Blood chemistry[[id number]] Glucose [Mass/volume] in Serum or Plasma [2345-7] 06/24/2025 11:13 AM 122 mg/dL N Blood chemistry[[id number]] Glucose [Mass/volume] in Serum or Plasma [2345-7] 06/24/2025 04:02 PM 244 mg/dL N Blood chemistry[[id number]] Glucose [Mass/volume] in Serum or Plasma [2345-7] 06/24/2025 08:56 AM 114 mg/dL N Blood chemistry[[id number]] Glucose [Mass/volume] in Serum or Plasma [2345-7] 06/24/2025 11:22 AM 183 mg/dL N Blood chemistry[[id number]] Glucose [Mass/volume] in Serum or Plasma [2345-7] 06/23/2025 03:36 PM 178 mg/dL N Blood chemistry[[id number]] Glucose [Mass/volume] in Serum or Plasma [2345-7] 06/23/2025 04:06 PM 220 mg/dL N Blood chemistry[[id number]] Glucose [Mass/volume] in Serum or Plasma [2345-7] 06/23/2025 09:14 AM 144 mg/dL N Blood chemistry[[id number]] Glucose [Mass/volume] in Serum or Plasma [2345-7] 06/23/2025 11:22 AM 193 mg/dL N Blood chemistry[[id number]] Glucose [Mass/volume] in Serum or Plasma [2345-7] 06/22/2025 12:26 PM 217 mg/dL N Blood chemistry[[id number]] Glucose [Mass/volume] in Serum or Plasma [2345-7] 06/22/2025 04:24 PM 266 mg/dL N Blood chemistry[[id number]] Glucose [Mass/volume] in Serum or Plasma [2345-7] 06/22/2025 09:01 AM 251 mg/dL N Blood chemistry[[id number]] Glucose [Mass/volume] in Serum or Plasma [2345-7] 06/22/2025 10:25 AM 219 mg/dL N Blood chemistry[[id number]] Glucose [Mass/volume] in Serum or Plasma [2345-7] 06/21/2025 11:37 AM 203 mg/dL N Blood chemistry[[id number]] Glucose [Mass/volume] in Serum or Plasma [2345-7] 06/21/2025 04:24 PM 255 mg/dL N Blood chemistry[[id number]] Glucose [Mass/volume] in Serum or Plasma [2345-7] 06/21/2025 09:02 AM 204 mg/dL N Blood chemistry[[id number]] Glucose [Mass/volume] in Serum or Plasma [2345-7] 06/21/2025 12:16 PM 184 mg/dL N Blood chemistry[[id number]] Glucose [Mass/volume] in Serum or Plasma [2345-7] 06/20/2025 03:28 PM 222 mg/dL N Blood chemistry[[id number]] Glucose [Mass/volume] in Serum or Plasma [2345-7] 06/20/2025 05:51 PM 331 mg/dL N Blood chemistry[[id number]] Glucose [Mass/volume] in Serum or Plasma [2345-7] 06/20/2025 04:19 PM 331 mg/dL N Blood chemistry[[id number]] Glucose [Mass/volume] in Serum or Plasma [2345-7] 06/20/2025 01:56 PM 301 mg/dL N Blood chemistry[[id number]] Glucose [Mass/volume] in Serum or Plasma [2345-7] 06/19/2025 11:58 AM 111 mg/dL N Blood chemistry[[id number]] Glucose [Mass/volume] in Serum or Plasma [2345-7] 06/19/2025 04:56 PM 234 mg/dL N Blood chemistry[[id number]] Glucose [Mass/volume] in Serum or Plasma [2345-7] 06/19/2025 09:41 AM 143 mg/dL N Blood chemistry[[id number]] Glucose [Mass/volume] in Serum or Plasma [2345-7] 06/19/2025 12:22 PM 248 mg/dL N Blood chemistry[[id number]] Glucose [Mass/volume] in Serum or Plasma [2345-7] 06/18/2025 11:32 AM 169 mg/dL N Blood chemistry[[id number]] Glucose [Mass/volume] in Serum or Plasma [2345-7] 06/18/2025 08:04 AM 209 mg/dL N Blood chemistry[[id number]] Glucose [Mass/volume] in Serum or Plasma [2345-7] 06/18/2025 12:22 PM 135 mg/dL N Blood chemistry[[id number]] Glucose [Mass/volume] in Serum or Plasma [2345-7] 06/17/2025 12:32 PM 216 mg/dL N Blood chemistry[[id number]] Glucose [Mass/volume] in Serum or Plasma [2345-7] 06/17/2025 10:27 AM 139 mg/dL N Blood chemistry[[id number]] Glucose [Mass/volume] in Serum or Plasma [2345-7] 06/17/2025 05:48 PM 213 mg/dL N Blood chemistry[[id number]] Glucose [Mass/volume] in Serum or Plasma [2345-7] 06/17/2025 01:42 PM 170 mg/dL N Blood chemistry[[id number]] Glucose [Mass/volume] in Serum or Plasma [2345-7] 06/16/2025 12:39 PM 178 mg/dL N Blood chemistry[[id number]] Glucose [Mass/volume] in Serum or Plasma [2345-7] 06/16/2025 04:07 PM 220 mg/dL N Blood chemistry[[id number]] Glucose [Mass/volume] in Serum or Plasma [2345-7] 06/16/2025 08:43 AM 189 mg/dL N Blood chemistry[[id number]] Glucose [Mass/volume] in Serum or Plasma [2345-7] 06/16/2025 11:39 AM 194 mg/dL N Blood chemistry[[id number]] Glucose [Mass/volume] in Serum or Plasma [2345-7] 06/15/2025 11:18 AM 192 mg/dL N Blood chemistry[[id number]] Glucose [Mass/volume] in Serum or Plasma [2345-7] 06/15/2025 04:33 PM 204 mg/dL N Blood chemistry[[id number]] Glucose [Mass/volume] in Serum or Plasma [2345-7] 06/15/2025 09:13 AM 202 mg/dL N Blood chemistry[[id number]] Glucose [Mass/volume] in Serum or Plasma [2345-7] 06/15/2025 11:49 AM 220 mg/dL N Blood chemistry[[id number]] Glucose [Mass/volume] in Serum or Plasma [2345-7] 06/15/2025 05:49 PM 302 mg/dL N Blood chemistry[[id number]] Glucose [Mass/volume] in Serum or Plasma [2345-7] 06/05/2025 04:52 PM 174 mg/dL N Blood chemistry[[id number]] Glucose [Mass/volume] in Serum or Plasma [2345-7] 06/05/2025 11:39 AM 308 mg/dL N Blood chemistry[[id number]] Glucose [Mass/volume] in Serum or Plasma [2345-7] 06/05/2025 10:05 AM 203 mg/dL N Blood chemistry[[id number]] Glucose [Mass/volume] in Serum or Plasma [2345-7] 06/04/2025 05:08 PM 341 mg/dL N Blood chemistry[[id number]] Glucose [Mass/volume] in Serum or Plasma [2345-7] 06/04/2025 11:29 AM 280 mg/dL N Blood chemistry[[id number]] Glucose [Mass/volume] in Serum or Plasma [2345-7] 06/04/2025 09:51 AM 262 mg/dL N Blood chemistry[[id number]] Glucose [Mass/volume] in Serum or Plasma [2345-7] 06/03/2025 04:30 PM 270 mg/dL N Blood chemistry[[id number]] Glucose [Mass/volume] in Serum or Plasma [2345-7] 06/03/2025 12:31 PM 331 mg/dL N Blood chemistry[[id number]] Glucose [Mass/volume] in Serum or Plasma [2345-7] 06/03/2025 09:16 AM 245 mg/dL N Blood chemistry[[id number]] Glucose [Mass/volume] in Serum or Plasma [2345-7] 06/02/2025 05:00 PM 160 mg/dL N Blood chemistry[[id number]] Glucose [Mass/volume] in Serum or Plasma [2345-7] 06/02/2025 01:16 PM 261 mg/dL N Blood chemistry[[id number]] Glucose [Mass/volume] in Serum or Plasma [2345-7] 06/02/2025 09:46 AM 176 mg/dL N Blood chemistry[[id number]] Glucose [Mass/volume] in Serum or Plasma [2345-7] 06/01/2025 04:08 PM 292 mg/dL N Blood chemistry[[id number]] Glucose [Mass/volume] in Serum or Plasma [2345-7] 06/01/2025 11:39 AM 299 mg/dL N Blood chemistry[[id number]] Glucose [Mass/volume] in Serum or Plasma [2345-7] 06/01/2025 09:21 AM 186 mg/dL N Blood chemistry[[id number]] Glucose [Mass/volume] in Serum or Plasma [2345-7] 05/31/2025 04:28 PM 322 mg/dL N Blood chemistry[[id number]] Glucose [Mass/volume] in Serum or Plasma [2345-7] 05/31/2025 11:31 AM 426 mg/dL N Blood chemistry[[id number]] Glucose [Mass/volume] in Serum or Plasma [2345-7] 05/31/2025 09:31 AM 250 mg/dL N Blood chemistry[[id number]] Glucose [Mass/volume] in Serum or Plasma [2345-7] 05/30/2025 04:28 PM 340 mg/dL N Blood chemistry[[id number]] Glucose [Mass/volume] in Serum or Plasma [2345-7] 05/30/2025 11:32 AM 221 mg/dL N Blood chemistry[[id number]] Glucose [Mass/volume] in Serum or Plasma [2345-7] 05/30/2025 09:12 AM 340 mg/dL N Blood chemistry[[id number]] Glucose [Mass/volume] in Serum or Plasma [2345-7] 05/29/2025 01:22 PM 279 mg/dL N Blood chemistry[[id number]] Glucose [Mass/volume] in Serum or Plasma [2345-7] 05/29/2025 10:39 AM 187 mg/dL N Blood chemistry[[id number]] Glucose [Mass/volume] in Serum or Plasma [2345-7] 05/29/2025 06:03 AM 305 mg/dL N Blood chemistry[[id number]] Glucose [Mass/volume] in Serum or Plasma [2345-7] 05/28/2025 04:01 PM 417 mg/dL N Blood chemistry[[id number]] Glucose [Mass/volume] in Serum or Plasma [2345-7] 05/28/2025 11:59 AM 349 mg/dL N Blood chemistry[[id number]] Glucose [Mass/volume] in Serum or Plasma [2345-7] 05/28/2025 09:12 AM 290 mg/dL N Blood chemistry[[id number]] Glucose [Mass/volume] in Serum or Plasma [2345-7] 05/27/2025 04:05 PM 371 mg/dL N Blood chemistry[[id number]] Glucose [Mass/volume] in Serum or Plasma [2345-7] 05/27/2025 11:30 AM 263 mg/dL N Blood chemistry[[id number]] Glucose [Mass/volume] in Serum or Plasma [2345-7] 05/27/2025 09:09 AM 258 mg/dL N Blood chemistry[[id number]] Glucose [Mass/volume] in Serum or Plasma [2345-7] 05/26/2025 04:46 PM 437 mg/dL N Blood chemistry[[id number]] Glucose [Mass/volume] in Serum or Plasma [2345-7] 05/26/2025 11:37 AM 305 mg/dL N Blood chemistry[[id number]] Glucose [Mass/volume] in Serum or Plasma [2345-7] 05/26/2025 09:03 AM 383 mg/dL N Blood chemistry[[id number]] Glucose [Mass/volume] in Serum or Plasma [2345-7] 05/25/2025 04:08 PM 273 mg/dL N Blood chemistry[[id number]] Glucose [Mass/volume] in Serum or Plasma [2345-7] 05/25/2025 11:33 AM 251 mg/dL N Blood chemistry[[id number]] Glucose [Mass/volume] in Serum or Plasma [2345-7] 05/25/2025 09:28 AM 351 mg/dL N Blood chemistry[[id number]] Glucose [Mass/volume] in Serum or Plasma [2345-7] 05/24/2025 09:27 AM 408 mg/dL N Blood chemistry[[id number]] Glucose [Mass/volume] in Serum or Plasma [2345-7] 05/24/2025 09:11 AM 369 mg/dL N Blood chemistry[[id number]] Glucose [Mass/volume] in Serum or Plasma [2345-7] 05/24/2025 06:12 AM 509 mg/dL N Blood chemistry[[id number]] Glucose [Mass/volume] in Serum or Plasma [2345-7] 05/23/2025 05:03 PM 335 mg/dL N Blood chemistry[[id number]] Glucose [Mass/volume] in Serum or Plasma [2345-7] 05/23/2025 01:10 PM 342 mg/dL N Blood chemistry[[id number]] Glucose [Mass/volume] in Serum or Plasma [2345-7] 05/23/2025 09:20 AM 257 mg/dL N Blood chemistry[[id number]] Glucose [Mass/volume] in Serum or Plasma [2345-7] 05/22/2025 11:51 AM 269 mg/dL N Blood chemistry[[id number]] Glucose [Mass/volume] in Serum or Plasma [2345-7] 05/22/2025 09:17 AM 356 mg/dL N Blood chemistry[[id number]] Glucose [Mass/volume] in Serum or Plasma [2345-7] 05/22/2025 07:13 AM 252 mg/dL N Blood chemistry[[id number]] Glucose [Mass/volume] in Serum or Plasma [2345-7] 05/21/2025 04:48 PM 361 mg/dL N Blood chemistry[[id number]] Glucose [Mass/volume] in Serum or Plasma [2345-7] 05/21/2025 12:54 PM 297 mg/dL N Blood chemistry[[id number]] Glucose [Mass/volume] in Serum or Plasma [2345-7] 05/21/2025 09:24 AM 320 mg/dL N Blood chemistry[[id number]] Glucose [Mass/volume] in Serum or Plasma [2345-7] 05/20/2025 04:45 PM 234 mg/dL N Blood chemistry[[id number]] Glucose [Mass/volume] in Serum or Plasma [2345-7] 05/20/2025 12:17 PM 246 mg/dL N Blood chemistry[[id number]] Glucose [Mass/volume] in Serum or Plasma [2345-7] 05/20/2025 09:22 AM 252 mg/dL N Blood chemistry[[id number]] Glucose [Mass/volume] in Serum or Plasma [2345-7] 05/19/2025 04:27 PM 341 mg/dL N Blood chemistry[[id number]] Glucose [Mass/volume] in Serum or Plasma [2345-7] 05/19/2025 12:39 PM 215 mg/dL N Blood chemistry[[id number]] Glucose [Mass/volume] in Serum or Plasma [2345-7] 05/19/2025 10:19 AM 269 mg/dL N Blood chemistry[[id number]] Glucose [Mass/volume] in Serum or Plasma [2345-7] 05/18/2025 04:00 PM 268 mg/dL N Blood chemistry[[id number]] Glucose [Mass/volume] in Serum or Plasma [2345-7] 05/18/2025 11:30 AM 302 mg/dL N Blood chemistry[[id number]] Glucose [Mass/volume] in Serum or Plasma [2345-7] 05/18/2025 09:16 AM 306 mg/dL N Blood chemistry[[id number]] Glucose [Mass/volume] in Serum or Plasma [2345-7] 05/17/2025 04:11 PM 341 mg/dL N Blood chemistry[[id number]] Glucose [Mass/volume] in Serum or Plasma [2345-7] 05/17/2025 11:48 AM 295 mg/dL N Blood chemistry[[id number]] Glucose [Mass/volume] in Serum or Plasma [2345-7] 05/17/2025 09:36 AM 310 mg/dL N Blood chemistry[[id number]] Glucose [Mass/volume] in Serum or Plasma [2345-7] 05/16/2025 04:37 PM 311 mg/dL N Blood chemistry[[id number]] Glucose [Mass/volume] in Serum or Plasma [2345-7] 05/16/2025 12:06 PM 332 mg/dL N Blood chemistry[[id number]] Glucose [Mass/volume] in Serum or Plasma [2345-7] 05/16/2025 08:58 AM 308 mg/dL N Blood chemistry[[id number]] Glucose [Mass/volume] in Serum or Plasma [2345-7] 05/15/2025 05:11 PM 285 mg/dL N Blood chemistry[[id number]] Glucose [Mass/volume] in Serum or Plasma [2345-7] 05/15/2025 01:45 PM 241 mg/dL N Blood chemistry[[id number]] Glucose [Mass/volume] in Serum or Plasma [2345-7] 05/15/2025 09:26 AM 224 mg/dL N Blood chemistry[[id number]] Glucose [Mass/volume] in Serum or Plasma [2345-7] 05/14/2025 04:06 PM 359 mg/dL N Blood chemistry[[id number]] Glucose [Mass/volume] in Serum or Plasma [2345-7] 05/14/2025 11:27 AM 244 mg/dL N Blood chemistry[[id number]] Glucose [Mass/volume] in Serum or Plasma [2345-7] 05/14/2025 09:17 AM 268 mg/dL N Blood chemistry[[id number]] Glucose [Mass/volume] in Serum or Plasma [2345-7] 05/13/2025 04:17 PM 366 mg/dL N Blood chemistry[[id number]] Glucose [Mass/volume] in Serum or Plasma [2345-7] 05/13/2025 11:36 AM 246 mg/dL N Blood chemistry[[id number]] Glucose [Mass/volume] in Serum or Plasma [2345-7] 05/13/2025 10:24 AM 352 mg/dL N Blood chemistry[[id number]] Glucose [Mass/volume] in Serum or Plasma [2345-7] 05/12/2025 04:37 PM 237 mg/dL N Blood chemistry[[id number]] Glucose [Mass/volume] in Serum or Plasma [2345-7] 05/12/2025 11:57 AM 278 mg/dL N Blood chemistry[[id number]] Glucose [Mass/volume] in Serum or Plasma [2345-7] 05/12/2025 09:13 AM 263 mg/dL N Blood chemistry[[id number]] Glucose [Mass/volume] in Serum or Plasma [2345-7] 05/11/2025 04:34 PM 287 mg/dL N Blood chemistry[[id number]] Glucose [Mass/volume] in Serum or Plasma [2345-7] 05/11/2025 11:30 AM 343 mg/dL N Blood chemistry[[id number]] Glucose [Mass/volume] in Serum or Plasma [2345-7] 05/11/2025 09:40 AM 220 mg/dL N Blood chemistry[[id number]] Glucose [Mass/volume] in Serum or Plasma [2345-7] 05/10/2025 04:21 PM 209 mg/dL N Blood chemistry[[id number]] Glucose [Mass/volume] in Serum or Plasma [2345-7] 05/10/2025 12:18 PM 310 mg/dL N Blood chemistry[[id number]] Glucose [Mass/volume] in Serum or Plasma [2345-7] 05/10/2025 09:30 AM 182 mg/dL N Blood chemistry[[id number]] Glucose [Mass/volume] in Serum or Plasma [2345-7] 05/09/2025 04:38 PM 297 mg/dL N Blood chemistry[[id number]] Glucose [Mass/volume] in Serum or Plasma [2345-7] 05/09/2025 12:23 PM 196 mg/dL N Blood chemistry[[id number]] Glucose [Mass/volume] in Serum or Plasma [2345-7] 05/09/2025 09:20 AM 332 mg/dL N Blood chemistry[[id number]] Glucose [Mass/volume] in Serum or Plasma [2345-7] 05/08/2025 04:52 PM 321 mg/dL N Blood chemistry[[id number]] Glucose [Mass/volume] in Serum or Plasma [2345-7] 05/08/2025 11:46 AM 239 mg/dL N Blood chemistry[[id number]] Glucose [Mass/volume] in Serum or Plasma [2345-7] 05/08/2025 09:21 AM 267 mg/dL N Blood chemistry[[id number]] Glucose [Mass/volume] in Serum or Plasma [2345-7] 05/07/2025 05:18 PM 304 mg/dL N Blood chemistry[[id number]] Glucose [Mass/volume] in Serum or Plasma [2345-7] 05/07/2025 12:28 PM 329 mg/dL N Blood chemistry[[id number]] Glucose [Mass/volume] in Serum or Plasma [2345-7] 05/07/2025 09:02 AM 193 mg/dL N Blood chemistry[[id number]] Glucose [Mass/volume] in Serum or Plasma [2345-7] 05/06/2025 02:14 PM 268 mg/dL N Blood chemistry[[id number]] Glucose [Mass/volume] in Serum or Plasma [2345-7] 05/06/2025 09:55 AM 317 mg/dL N Blood chemistry[[id number]] Glucose [Mass/volume] in Serum or Plasma [2345-7] 05/06/2025 07:03 AM 369 mg/dL N Blood chemistry[[id number]] Glucose [Mass/volume] in Serum or Plasma [2345-7] 05/05/2025 03:46 PM 336 mg/dL N Blood chemistry[[id number]] Glucose [Mass/volume] in Serum or Plasma [2345-7] 05/05/2025 01:04 PM 260 mg/dL N Blood chemistry[[id number]] Glucose [Mass/volume] in Serum or Plasma [2345-7] 05/05/2025 10:20 AM 256 mg/dL N Blood chemistry[[id number]] Glucose [Mass/volume] in Serum or Plasma [2345-7] 05/04/2025 04:01 PM 240 mg/dL N Blood chemistry[[id number]] Glucose [Mass/volume] in Serum or Plasma [2345-7] 05/04/2025 11:40 AM 278 mg/dL N Blood chemistry[[id number]] Glucose [Mass/volume] in Serum or Plasma [2345-7] 05/04/2025 09:20 AM 182 mg/dL N Blood chemistry[[id number]] Glucose [Mass/volume] in Serum or Plasma [2345-7] 05/03/2025 05:53 PM 308 mg/dL N Blood chemistry[[id number]] Glucose [Mass/volume] in Serum or Plasma [2345-7] 05/03/2025 11:50 AM 269 mg/dL N Blood chemistry[[id number]] Glucose [Mass/volume] in Serum or Plasma [2345-7] 05/03/2025 09:20 AM 214 mg/dL N Blood chemistry[[id number]] Glucose [Mass/volume] in Serum or Plasma [2345-7] 05/02/2025 04:18 PM 292 mg/dL N Blood chemistry[[id number]] Glucose [Mass/volume] in Serum or Plasma [2345-7] 05/02/2025 11:23 AM 218 mg/dL N Blood chemistry[[id number]] Glucose [Mass/volume] in Serum or Plasma [2345-7] 05/02/2025 09:09 AM 221 mg/dL N Blood chemistry[[id number]] Glucose [Mass/volume] in Serum or Plasma [2345-7] 05/01/2025 05:34 PM 306 mg/dL N Blood chemistry[[id number]] Glucose [Mass/volume] in Serum or Plasma [2345-7] 05/01/2025 01:57 PM 421 mg/dL N Blood chemistry[[id number]] Glucose [Mass/volume] in Serum or Plasma [2345-7] 05/01/2025 10:31 AM 254 mg/dL N Blood chemistry[[id number]] Glucose [Mass/volume] in Serum or Plasma [2345-7] 04/30/2025 04:09 PM 399 mg/dL N Blood chemistry[[id number]] Glucose [Mass/volume] in Serum or Plasma [2345-7] 04/30/2025 11:17 AM 417 mg/dL N Blood chemistry[[id number]] Glucose [Mass/volume] in Serum or Plasma [2345-7] 04/30/2025 09:24 AM 303 mg/dL N Blood chemistry[[id number]] Glucose [Mass/volume] in Serum or Plasma [2345-7] 04/29/2025 04:34 PM 359 mg/dL N Blood chemistry[[id number]] Glucose [Mass/volume] in Serum or Plasma [2345-7] 04/29/2025 11:32 AM 355 mg/dL N Blood chemistry[[id number]] Glucose [Mass/volume] in Serum or Plasma [2345-7] 04/29/2025 10:11 AM 244 mg/dL N Blood chemistry[[id number]] Glucose [Mass/volume] in Serum or Plasma [2345-7] 04/28/2025 04:46 PM 491 mg/dL N Blood chemistry[[id number]] Glucose [Mass/volume] in Serum or Plasma [2345-7] 04/28/2025 11:54 AM 463 mg/dL N Blood chemistry[[id number]] Glucose [Mass/volume] in Serum or Plasma [2345-7] 04/28/2025 09:24 AM 395 mg/dL N Blood chemistry[[id number]] Glucose [Mass/volume] in Serum or Plasma [2345-7] 04/27/2025 04:14 PM 317 mg/dL N Blood chemistry[[id number]] Glucose [Mass/volume] in Serum or Plasma [2345-7] 04/27/2025 11:51 AM 263 mg/dL N Blood chemistry[[id number]] Glucose [Mass/volume] in Serum or Plasma [2345-7] 04/27/2025 09:40 AM 406 mg/dL N Blood chemistry[[id number]] Glucose [Mass/volume] in Serum or Plasma [2345-7] 04/26/2025 04:19 PM 274 mg/dL N Blood chemistry[[id number]] Glucose [Mass/volume] in Serum or Plasma [2345-7] 04/26/2025 12:04 PM 253 mg/dL N Blood chemistry[[id number]] Glucose [Mass/volume] in Serum or Plasma [2345-7] 04/26/2025 09:21 AM 329 mg/dL N Blood chemistry[[id number]] Glucose [Mass/volume] in Serum or Plasma [2345-7] 04/25/2025 05:55 PM 316 mg/dL N Blood chemistry[[id number]] Glucose [Mass/volume] in Serum or Plasma [2345-7] 04/25/2025 12:55 PM 317 mg/dL N Blood chemistry[[id number]] Glucose [Mass/volume] in Serum or Plasma [2345-7] 04/25/2025 09:54 AM 337 mg/dL N Blood chemistry[[id number]] Glucose [Mass/volume] in Serum or Plasma [2345-7] 04/24/2025 04:35 PM 328 mg/dL N Blood chemistry[[id number]] Glucose [Mass/volume] in Serum or Plasma [2345-7] 04/24/2025 11:29 AM 411 mg/dL N Blood chemistry[[id number]] Glucose [Mass/volume] in Serum or Plasma [2345-7] 04/24/2025 09:57 AM 377 mg/dL N Blood chemistry[[id number]] Glucose [Mass/volume] in Serum or Plasma [2345-7] 04/23/2025 04:13 PM 299 mg/dL N Blood chemistry[[id number]] Glucose [Mass/volume] in Serum or Plasma [2345-7] 04/23/2025 12:54 PM 328 mg/dL N Blood chemistry[[id number]] Glucose [Mass/volume] in Serum or Plasma [2345-7] 04/23/2025 10:40 AM 285 mg/dL N Blood chemistry[[id number]] Glucose [Mass/volume] in Serum or Plasma [2345-7] 04/22/2025 05:25 PM 393 mg/dL N Blood chemistry[[id number]] Glucose [Mass/volume] in Serum or Plasma [2345-7] 04/22/2025 12:59 PM 226 mg/dL N Blood chemistry[[id number]] Glucose [Mass/volume] in Serum or Plasma [2345-7] 04/22/2025 10:00 AM 267 mg/dL N Blood chemistry[[id number]] Glucose [Mass/volume] in Serum or Plasma [2345-7] 04/21/2025 05:16 PM 326 mg/dL N Blood chemistry[[id number]] Glucose [Mass/volume] in Serum or Plasma [2345-7] 04/21/2025 12:32 PM 226 mg/dL N Blood chemistry[[id number]] Glucose [Mass/volume] in Serum or Plasma [2345-7] 04/21/2025 10:05 AM 297 mg/dL N Blood chemistry[[id number]] Glucose [Mass/volume] in Serum or Plasma [2345-7] 04/20/2025 04:06 PM 328 mg/dL N Blood chemistry[[id number]] Glucose [Mass/volume] in Serum or Plasma [2345-7] 04/20/2025 11:40 AM 258 mg/dL N Blood chemistry[[id number]] Glucose [Mass/volume] in Serum or Plasma [2345-7] 04/20/2025 09:02 AM 252 mg/dL N Blood chemistry[[id number]] Glucose [Mass/volume] in Serum or Plasma [2345-7] 04/19/2025 04:15 PM 329 mg/dL N Blood chemistry[[id number]] Glucose [Mass/volume] in Serum or Plasma [2345-7] 04/19/2025 11:52 AM 310 mg/dL N Blood chemistry[[id number]] Glucose [Mass/volume] in Serum or Plasma [2345-7] 04/19/2025 09:09 AM 291 mg/dL N Blood chemistry[[id number]] Glucose [Mass/volume] in Serum or Plasma [2345-7] 04/18/2025 04:50 PM 402 mg/dL N Blood chemistry[[id number]] Glucose [Mass/volume] in Serum or Plasma [2345-7] 04/18/2025 11:34 AM 311 mg/dL N Blood chemistry[[id number]] Glucose [Mass/volume] in Serum or Plasma [2345-7] 04/18/2025 09:11 AM 387 mg/dL N Blood chemistry[[id number]] Glucose [Mass/volume] in Serum or Plasma [2345-7] 04/17/2025 03:51 PM 383 mg/dL N Blood chemistry[[id number]] Glucose [Mass/volume] in Serum or Plasma [2345-7] 04/17/2025 12:39 PM 356 mg/dL N Blood chemistry[[id number]] Glucose [Mass/volume] in Serum or Plasma [2345-7] 04/17/2025 09:31 AM 324 mg/dL N Blood chemistry[[id number]] Glucose [Mass/volume] in Serum or Plasma [2345-7] 04/16/2025 11:43 AM 327 mg/dL N Blood chemistry[[id number]] Glucose [Mass/volume] in Serum or Plasma [2345-7] 04/16/2025 08:59 AM 350 mg/dL N Blood chemistry[[id number]] Glucose [Mass/volume] in Serum or Plasma [2345-7] 04/16/2025 06:09 AM 341 mg/dL N Blood chemistry[[id number]] Glucose [Mass/volume] in Serum or Plasma [2345-7] 04/15/2025 05:48 PM 212 mg/dL N Blood chemistry[[id number]] Glucose [Mass/volume] in Serum or Plasma [2345-7] 04/15/2025 11:43 AM 422 mg/dL N Blood chemistry[[id number]] Glucose [Mass/volume] in Serum or Plasma [2345-7] 04/15/2025 09:00 AM 316 mg/dL N Blood chemistry[[id number]] Glucose [Mass/volume] in Serum or Plasma [2345-7] 04/15/2025 06:23 AM 392 mg/dL N Blood chemistry[[id number]] Glucose [Mass/volume] in Serum or Plasma [2345-7] 04/10/2025 05:44 PM 293 mg/dL N Blood chemistry[[id number]] Glucose [Mass/volume] in Serum or Plasma [2345-7] 04/10/2025 12:05 PM 195 mg/dL N Blood chemistry[[id number]] Glucose [Mass/volume] in Serum or Plasma [2345-7] 04/09/2025 04:06 PM 246 mg/dL N Blood chemistry[[id number]] Glucose [Mass/volume] in Serum or Plasma [2345-7] 04/09/2025 02:04 PM 202 mg/dL N Blood chemistry[[id number]] Glucose [Mass/volume] in Serum or Plasma [2345-7] 04/09/2025 10:42 AM 213 mg/dL N Blood chemistry[[id number]] Glucose [Mass/volume] in Serum or Plasma [2345-7] 04/09/2025 09:04 AM 231 mg/dL N Blood chemistry[[id number]] Glucose [Mass/volume] in Serum or Plasma [2345-7] 04/08/2025 04:55 PM 273 mg/dL N Blood chemistry[[id number]] Glucose [Mass/volume] in Serum or Plasma [2345-7] 04/08/2025 01:46 PM 175 mg/dL N Blood chemistry[[id number]] Glucose [Mass/volume] in Serum or Plasma [2345-7] 04/08/2025 10:53 AM 243 mg/dL N Blood chemistry[[id number]] Glucose [Mass/volume] in Serum or Plasma [2345-7] 04/08/2025 10:37 AM 177 mg/dL N Blood chemistry[[id number]] Glucose [Mass/volume] in Serum or Plasma [2345-7] 04/07/2025 04:50 PM 229 mg/dL N Blood chemistry[[id number]] Glucose [Mass/volume] in Serum or Plasma [2345-7] 04/07/2025 04:47 PM 229 mg/dL N Blood chemistry[[id number]] Glucose [Mass/volume] in Serum or Plasma [2345-7] 04/07/2025 01:34 PM 182 mg/dL N Blood chemistry[[id number]] Glucose [Mass/volume] in Serum or Plasma [2345-7] 04/07/2025 01:27 PM 182 mg/dL N Blood chemistry[[id number]] Glucose [Mass/volume] in Serum or Plasma [2345-7] 04/07/2025 01:26 PM 257 mg/dL N Blood chemistry[[id number]] Glucose [Mass/volume] in Serum or Plasma [2345-7] 04/07/2025 10:19 AM 226 mg/dL N Blood chemistry[[id number]] Glucose [Mass/volume] in Serum or Plasma [2345-7] 04/07/2025 10:13 AM 226 mg/dL N Blood chemistry[[id number]] Glucose [Mass/volume] in Serum or Plasma [2345-7] 04/06/2025 04:11 PM 353 mg/dL N Blood chemistry[[id number]] Glucose [Mass/volume] in Serum or Plasma [2345-7] 04/06/2025 12:21 PM 230 mg/dL N Blood chemistry[[id number]] Glucose [Mass/volume] in Serum or Plasma [2345-7] 04/06/2025 11:44 AM 267 mg/dL N Blood chemistry[[id number]] Glucose [Mass/volume] in Serum or Plasma [2345-7] 04/06/2025 09:04 AM 278 mg/dL N Blood chemistry[[id number]] Glucose [Mass/volume] in Serum or Plasma [2345-7] 04/05/2025 03:55 PM 302 mg/dL N Blood chemistry[[id number]] Glucose [Mass/volume] in Serum or Plasma [2345-7] 04/05/2025 12:04 PM 245 mg/dL N Blood chemistry[[id number]] Glucose [Mass/volume] in Serum or Plasma [2345-7] 04/05/2025 11:33 AM 292 mg/dL N Blood chemistry[[id number]] Glucose [Mass/volume] in Serum or Plasma [2345-7] 04/05/2025 09:09 AM 237 mg/dL N Blood chemistry[[id number]] Glucose [Mass/volume] in Serum or Plasma [2345-7] 04/04/2025 04:33 PM 357 mg/dL N Blood chemistry[[id number]] Glucose [Mass/volume] in Serum or Plasma [2345-7] 04/04/2025 12:09 PM 279 mg/dL N Blood chemistry[[id number]] Glucose [Mass/volume] in Serum or Plasma [2345-7] 04/04/2025 11:29 AM 250 mg/dL N Blood chemistry[[id number]] Glucose [Mass/volume] in Serum or Plasma [2345-7] 04/04/2025 09:18 AM 239 mg/dL N Blood chemistry[[id number]] Glucose [Mass/volume] in Serum or Plasma [2345-7] 04/03/2025 05:35 PM 318 mg/dL N Blood chemistry[[id number]] Glucose [Mass/volume] in Serum or Plasma [2345-7] 04/03/2025 01:19 PM 215 mg/dL N Blood chemistry[[id number]] Glucose [Mass/volume] in Serum or Plasma [2345-7] 04/03/2025 12:19 PM 250 mg/dL N Blood chemistry[[id number]] Glucose [Mass/volume] in Serum or Plasma [2345-7] 04/03/2025 10:42 AM 271 mg/dL N Blood chemistry[[id number]] Glucose [Mass/volume] in Serum or Plasma [2345-7] 04/03/2025 10:05 AM 271 mg/dL N Blood chemistry[[id number]] Glucose [Mass/volume] in Serum or Plasma [2345-7] 04/02/2025 04:09 PM 261 mg/dL N Blood chemistry[[id number]] Glucose [Mass/volume] in Serum or Plasma [2345-7] 04/02/2025 02:03 PM 374 mg/dL N Blood chemistry[[id number]] Glucose [Mass/volume] in Serum or Plasma [2345-7] 04/02/2025 11:37 AM 250 mg/dL N Blood chemistry[[id number]] Glucose [Mass/volume] in Serum or Plasma [2345-7] 04/02/2025 08:34 AM 283 mg/dL N Blood chemistry[[id number]] Glucose [Mass/volume] in Serum or Plasma [2345-7] 04/01/2025 04:31 PM 237 mg/dL N Blood chemistry[[id number]] Glucose [Mass/volume] in Serum or Plasma [2345-7] 04/01/2025 01:00 PM 278 mg/dL N Blood chemistry[[id number]] Glucose [Mass/volume] in Serum or Plasma [2345-7] 04/01/2025 11:41 AM 231 mg/dL N Blood chemistry[[id number]] Glucose [Mass/volume] in Serum or Plasma [2345-7] 04/01/2025 09:36 AM 262 mg/dL N Blood chemistry[[id number]] Glucose [Mass/volume] in Serum or Plasma [2345-7] 04/01/2025 09:15 AM 262 mg/dL N Blood chemistry[[id number]] Glucose [Mass/volume] in Serum or Plasma [2345-7] 03/31/2025 01:13 PM 389 mg/dL N Blood chemistry[[id number]] Glucose [Mass/volume] in Serum or Plasma [2345-7] 03/31/2025 11:50 AM 220 mg/dL N Blood chemistry[[id number]] Glucose [Mass/volume] in Serum or Plasma [2345-7] 03/31/2025 09:26 AM 337 mg/dL N Blood chemistry[[id number]] Glucose [Mass/volume] in Serum or Plasma [2345-7] 03/30/2025 04:32 PM 281 mg/dL N Blood chemistry[[id number]] Glucose [Mass/volume] in Serum or Plasma [2345-7] 03/30/2025 01:32 PM 241 mg/dL N Blood chemistry[[id number]] Glucose [Mass/volume] in Serum or Plasma [2345-7] 03/30/2025 12:13 PM 231 mg/dL N Blood chemistry[[id number]] Glucose [Mass/volume] in Serum or Plasma [2345-7] 03/30/2025 09:35 AM 283 mg/dL N Blood chemistry[[id number]] Glucose [Mass/volume] in Serum or Plasma [2345-7] 03/29/2025 05:38 PM 267 mg/dL N Blood chemistry[[id number]] Glucose [Mass/volume] in Serum or Plasma [2345-7] 03/29/2025 03:16 PM 253 mg/dL N Blood chemistry[[id number]] Glucose [Mass/volume] in Serum or Plasma [2345-7] 03/29/2025 12:33 PM 332 mg/dL N Blood chemistry[[id number]] Glucose [Mass/volume] in Serum or Plasma [2345-7] 03/29/2025 11:39 AM 326 mg/dL N Blood chemistry[[id number]] Glucose [Mass/volume] in Serum or Plasma [2345-7] 03/28/2025 05:28 PM 258 mg/dL N Blood chemistry[[id number]] Glucose [Mass/volume] in Serum or Plasma [2345-7] 03/28/2025 01:11 PM 328 mg/dL N Blood chemistry[[id number]] Glucose [Mass/volume] in Serum or Plasma [2345-7] 03/28/2025 12:45 PM 328 mg/dL N Blood chemistry[[id number]] Glucose [Mass/volume] in Serum or Plasma [2345-7] 03/28/2025 11:52 AM 234 mg/dL N Blood chemistry[[id number]] Glucose [Mass/volume] in Serum or Plasma [2345-7] 03/28/2025 10:07 AM 264 mg/dL N Blood chemistry[[id number]] Glucose [Mass/volume] in Serum or Plasma [2345-7] 03/27/2025 05:33 PM 286 mg/dL N Blood chemistry[[id number]] Glucose [Mass/volume] in Serum or Plasma [2345-7] 03/27/2025 12:18 PM 312 mg/dL N Blood chemistry[[id number]] Glucose [Mass/volume] in Serum or Plasma [2345-7] 03/27/2025 11:40 AM 263 mg/dL N Blood chemistry[[id number]] Glucose [Mass/volume] in Serum or Plasma [2345-7] 03/27/2025 09:10 AM 210 mg/dL N Blood chemistry[[id number]] Glucose [Mass/volume] in Serum or Plasma [2345-7] 03/26/2025 03:56 PM 331 mg/dL N Blood chemistry[[id number]] Glucose [Mass/volume] in Serum or Plasma [2345-7] 03/26/2025 01:56 PM 341 mg/dL N Blood chemistry[[id number]] Glucose [Mass/volume] in Serum or Plasma [2345-7] 03/26/2025 12:07 PM 281 mg/dL N Blood chemistry[[id number]] Glucose [Mass/volume] in Serum or Plasma [2345-7] 03/26/2025 10:39 AM 341 mg/dL N Blood chemistry[[id number]] Glucose [Mass/volume] in Serum or Plasma [2345-7] 03/26/2025 10:15 AM 287 mg/dL N Blood chemistry[[id number]] Glucose [Mass/volume] in Serum or Plasma [2345-7] 03/26/2025 08:21 AM 287 mg/dL N Blood chemistry[[id number]] Glucose [Mass/volume] in Serum or Plasma [2345-7] 03/25/2025 04:12 PM 389 mg/dL N Blood chemistry[[id number]] Glucose [Mass/volume] in Serum or Plasma [2345-7] 03/25/2025 02:04 PM 194 mg/dL N Blood chemistry[[id number]] Glucose [Mass/volume] in Serum or Plasma [2345-7] 03/25/2025 01:02 PM 261 mg/dL N Blood chemistry[[id number]] Glucose [Mass/volume] in Serum or Plasma [2345-7] 03/25/2025 12:15 PM 251 mg/dL N Blood chemistry[[id number]] Glucose [Mass/volume] in Serum or Plasma [2345-7] 03/25/2025 09:22 AM 203 mg/dL N Blood chemistry[[id number]] Glucose [Mass/volume] in Serum or Plasma [2345-7] 03/24/2025 04:04 PM 374 mg/dL N Blood chemistry[[id number]] Glucose [Mass/volume] in Serum or Plasma [2345-7] 03/24/2025 03:39 PM 374 mg/dL N Blood chemistry[[id number]] Glucose [Mass/volume] in Serum or Plasma [2345-7] 03/24/2025 11:48 AM 165 mg/dL N Blood chemistry[[id number]] Glucose [Mass/volume] in Serum or Plasma [2345-7] 03/24/2025 09:56 AM 287 mg/dL N Blood chemistry[[id number]] Glucose [Mass/volume] in Serum or Plasma [2345-7] 03/24/2025 08:53 AM 271 mg/dL N Blood chemistry[[id number]] Glucose [Mass/volume] in Serum or Plasma [2345-7] 03/23/2025 04:28 PM 220 mg/dL N Blood chemistry[[id number]] Glucose [Mass/volume] in Serum or Plasma [2345-7] 03/23/2025 12:01 PM 262 mg/dL N Blood chemistry[[id number]] Glucose [Mass/volume] in Serum or Plasma [2345-7] 03/23/2025 11:24 AM 169 mg/dL N Blood chemistry[[id number]] Glucose [Mass/volume] in Serum or Plasma [2345-7] 03/23/2025 08:47 AM 167 mg/dL N Blood chemistry[[id number]] Glucose [Mass/volume] in Serum or Plasma [2345-7] 03/23/2025 06:02 AM 224 mg/dL N Blood chemistry[[id number]] Glucose [Mass/volume] in Serum or Plasma [2345-7] 03/22/2025 03:28 PM 272 mg/dL N Blood chemistry[[id number]] Glucose [Mass/volume] in Serum or Plasma [2345-7] 03/22/2025 11:10 AM 212 mg/dL N Blood chemistry[[id number]] Glucose [Mass/volume] in Serum or Plasma [2345-7] 03/22/2025 08:29 AM 186 mg/dL N Blood chemistry[[id number]] Glucose [Mass/volume] in Serum or Plasma [2345-7] 03/21/2025 03:38 PM 249 mg/dL N Blood chemistry[[id number]] Glucose [Mass/volume] in Serum or Plasma [2345-7] 03/21/2025 12:45 PM 236 mg/dL N Blood chemistry[[id number]] Glucose [Mass/volume] in Serum or Plasma [2345-7] 03/21/2025 12:15 PM 172 mg/dL N Blood chemistry[[id number]] Glucose [Mass/volume] in Serum or Plasma [2345-7] 03/21/2025 09:36 AM 168 mg/dL N Blood chemistry[[id number]] Glucose [Mass/volume] in Serum or Plasma [2345-7] 03/21/2025 08:54 AM 234 mg/dL N Blood chemistry[[id number]] Glucose [Mass/volume] in Serum or Plasma [2345-7] 03/20/2025 05:22 PM 241 mg/dL N Blood chemistry[[id number]] Glucose [Mass/volume] in Serum or Plasma [2345-7] 03/20/2025 05:17 PM 241 mg/dL N Blood chemistry[[id number]] Glucose [Mass/volume] in Serum or Plasma [2345-7] 03/20/2025 12:07 PM 182 mg/dL N Blood chemistry[[id number]] Glucose [Mass/volume] in Serum or Plasma [2345-7] 03/20/2025 10:17 AM 242 mg/dL N Blood chemistry[[id number]] Glucose [Mass/volume] in Serum or Plasma [2345-7] 03/20/2025 09:19 AM 242 mg/dL N Blood chemistry[[id number]] Glucose [Mass/volume] in Serum or Plasma [2345-7] 03/19/2025 04:28 PM 226 mg/dL N Blood chemistry[[id number]] Glucose [Mass/volume] in Serum or Plasma [2345-7] 03/19/2025 04:04 PM 210 mg/dL N Glucose [Mass/volume] in Serum or Plasma [2345-7] 03/19/2025 04:04 PM 210 mg/dL N Blood chemistry[[id number]] Glucose [Mass/volume] in Serum or Plasma [2345-7] 03/19/2025 01:57 PM 181 mg/dL N Blood chemistry[[id number]] Glucose [Mass/volume] in Serum or Plasma [2345-7] 03/19/2025 11:45 AM 181 mg/dL N Blood chemistry[[id number]] Glucose [Mass/volume] in Serum or Plasma [2345-7] 03/19/2025 10:24 AM 267 mg/dL N Blood chemistry[[id number]] Glucose [Mass/volume] in Serum or Plasma [2345-7] 03/18/2025 03:53 PM 250 mg/dL N Blood chemistry[[id number]] Glucose [Mass/volume] in Serum or Plasma [2345-7] 03/18/2025 02:40 PM 167 mg/dL N Blood chemistry[[id number]] Glucose [Mass/volume] in Serum or Plasma [2345-7] 03/18/2025 01:15 PM 239 mg/dL N Blood chemistry[[id number]] Glucose [Mass/volume] in Serum or Plasma [2345-7] 03/18/2025 11:46 AM 239 mg/dL N Blood chemistry[[id number]] Glucose [Mass/volume] in Serum or Plasma [2345-7] 03/18/2025 09:26 AM 253 mg/dL N Blood chemistry[[id number]] Glucose [Mass/volume] in Serum or Plasma [2345-7] 03/18/2025 06:07 AM 315 mg/dL N Blood chemistry[[id number]] Glucose [Mass/volume] in Serum or Plasma [2345-7] 03/17/2025 05:21 PM 218 mg/dL N Blood chemistry[[id number]] Glucose [Mass/volume] in Serum or Plasma [2345-7] 03/17/2025 01:13 PM 216 mg/dL N Blood chemistry[[id number]] Glucose [Mass/volume] in Serum or Plasma [2345-7] 03/17/2025 10:38 AM 235 mg/dL N Blood chemistry[[id number]] Glucose [Mass/volume] in Serum or Plasma [2345-7] 03/16/2025 01:32 PM 287 mg/dL N Blood chemistry[[id number]] Glucose [Mass/volume] in Serum or Plasma [2345-7] 02/06/2025 05:39 PM 204 mg/dL N Blood chemistry[[id number]] Glucose [Mass/volume] in Serum or Plasma [2345-7] 02/06/2025 09:47 AM 199 mg/dL N Blood chemistry[[id number]] Glucose [Mass/volume] in Serum or Plasma [2345-7] 02/06/2025 01:18 PM 147 mg/dL N Blood chemistry[[id number]] Glucose [Mass/volume] in Serum or Plasma [2345-7] 02/05/2025 01:07 PM 264 mg/dL N Blood chemistry[[id number]] Glucose [Mass/volume] in Serum or Plasma [2345-7] 02/05/2025 03:58 PM 251 mg/dL N Blood chemistry[[id number]] Glucose [Mass/volume] in Serum or Plasma [2345-7] 02/05/2025 09:28 AM 231 mg/dL N Blood chemistry[[id number]] Glucose [Mass/volume] in Serum or Plasma [2345-7] 02/05/2025 11:24 AM 207 mg/dL N Blood chemistry[[id number]] Glucose [Mass/volume] in Serum or Plasma [2345-7] 02/04/2025 12:58 PM 255 mg/dL N Blood chemistry[[id number]] Glucose [Mass/volume] in Serum or Plasma [2345-7] 02/04/2025 04:34 PM 280 mg/dL N Blood chemistry[[id number]] Glucose [Mass/volume] in Serum or Plasma [2345-7] 02/04/2025 09:16 AM 252 mg/dL N Blood chemistry[[id number]] Glucose [Mass/volume] in Serum or Plasma [2345-7] 02/04/2025 11:47 AM 177 mg/dL N Blood chemistry[[id number]] Glucose [Mass/volume] in Serum or Plasma [2345-7] 02/03/2025 12:37 PM 274 mg/dL N Blood chemistry[[id number]] Glucose [Mass/volume] in Serum or Plasma [2345-7] 02/03/2025 04:21 PM 265 mg/dL N Blood chemistry[[id number]] Glucose [Mass/volume] in Serum or Plasma [2345-7] 02/03/2025 09:29 AM 262 mg/dL N Blood chemistry[[id number]] Glucose [Mass/volume] in Serum or Plasma [2345-7] 02/03/2025 11:12 AM 263 mg/dL N Blood chemistry[[id number]] Glucose [Mass/volume] in Serum or Plasma [2345-7] 02/02/2025 01:06 PM 279 mg/dL N Blood chemistry[[id number]] Glucose [Mass/volume] in Serum or Plasma [2345-7] 02/02/2025 04:15 PM 229 mg/dL N Blood chemistry[[id number]] Glucose [Mass/volume] in Serum or Plasma [2345-7] 02/02/2025 09:47 AM 306 mg/dL N Blood chemistry[[id number]] Glucose [Mass/volume] in Serum or Plasma [2345-7] 02/02/2025 11:22 AM 208 mg/dL N Blood chemistry[[id number]] Glucose [Mass/volume] in Serum or Plasma [2345-7] 02/01/2025 12:17 PM 223 mg/dL N Blood chemistry[[id number]] Glucose [Mass/volume] in Serum or Plasma [2345-7] 02/01/2025 04:44 PM 268 mg/dL N Blood chemistry[[id number]] Glucose [Mass/volume] in Serum or Plasma [2345-7] 02/01/2025 11:03 AM 212 mg/dL N Blood chemistry[[id number]] Glucose [Mass/volume] in Serum or Plasma [2345-7] 01/31/2025 02:13 PM 243 mg/dL N Blood chemistry[[id number]] Glucose [Mass/volume] in Serum or Plasma [2345-7] 01/31/2025 04:50 PM 270 mg/dL N Blood chemistry[[id number]] Glucose [Mass/volume] in Serum or Plasma [2345-7] 01/31/2025 09:30 AM 252 mg/dL N Blood chemistry[] Glucose [Mass/volume] in Serum or Plasma [2345-7] 01/31/2025 12:47 PM 182 mg/dL N Blood chemistry[[id number]] Glucose [Mass/volume] in Serum or Plasma [2345-7] 01/31/2025 08:01 AM 196 mg/dL N Blood chemistry[[id number]] Glucose [Mass/volume] in Serum or Plasma [2345-7] 01/30/2025 04:31 PM 230 mg/dL N Blood chemistry[[id number]] Glucose [Mass/volume] in Serum or Plasma [2345-7] 01/30/2025 09:23 AM 243 mg/dL N Blood chemistry[[id number]] Glucose [Mass/volume] in Serum or Plasma [2345-7] 01/30/2025 12:05 PM 213 mg/dL N Blood chemistry[[id number]] Glucose [Mass/volume] in Serum or Plasma [2345-7] 01/29/2025 01:49 PM 278 mg/dL N Blood chemistry[[id number]] Glucose [Mass/volume] in Serum or Plasma [2345-7] 01/29/2025 10:40 AM 201 mg/dL N Blood chemistry[[id number]] Glucose [Mass/volume] in Serum or Plasma [2345-7] 01/29/2025 05:07 PM 287 mg/dL N Blood chemistry[[id number]] Glucose [Mass/volume] in Serum or Plasma [2345-7] 01/29/2025 01:36 PM 199 mg/dL N Blood chemistry[[id number]] Glucose [Mass/volume] in Serum or Plasma [2345-7] 01/28/2025 02:28 PM 204 mg/dL N Blood chemistry[] Glucose [Mass/volume] in Serum or Plasma [2345-7] 01/28/2025 04:35 PM 293 mg/dL N Blood chemistry[[id number]] Glucose [Mass/volume] in Serum or Plasma [2345-7] 01/28/2025 10:07 AM 232 mg/dL N Blood chemistry[] Glucose [Mass/volume] in Serum or Plasma [2345-7] 01/28/2025 01:30 PM 231 mg/dL N Blood chemistry[] Glucose [Mass/volume] in Serum or Plasma [2345-7] 01/27/2025 01:57 PM 289 mg/dL N Blood chemistry[] Glucose [Mass/volume] in Serum or Plasma [2345-7] 01/27/2025 05:11 PM 320 mg/dL N Blood chemistry[[id number]] Glucose [Mass/volume] in Serum or Plasma [2345-7] 01/27/2025 09:50 AM 211 mg/dL N Blood chemistry[] Glucose [Mass/volume] in Serum or Plasma [2345-7] 01/27/2025 12:50 PM 256 mg/dL N Blood chemistry[[id number]] Glucose [Mass/volume] in Serum or Plasma [2345-7] 01/26/2025 12:40 PM 292 mg/dL N Blood chemistry[[id number]] Glucose [Mass/volume] in Serum or Plasma [2345-7] 01/26/2025 04:26 PM 262 mg/dL N Blood chemistry[[id number]] Glucose [Mass/volume] in Serum or Plasma [2345-7] 01/26/2025 09:09 AM 263 mg/dL N Blood chemistry[[id number]] Glucose [Mass/volume] in Serum or Plasma [2345-7] 01/26/2025 11:30 AM 232 mg/dL N Blood chemistry[[id number]] Glucose [Mass/volume] in Serum or Plasma [2345-7] 01/25/2025 02:51 PM 261 mg/dL N Blood chemistry[[id number]] Glucose [Mass/volume] in Serum or Plasma [2345-7] 01/25/2025 04:20 PM 290 mg/dL N Blood chemistry[[id number]] Glucose [Mass/volume] in Serum or Plasma [2345-7] 01/25/2025 09:17 AM 250 mg/dL N Blood chemistry[[id number]] Glucose [Mass/volume] in Serum or Plasma [2345-7] 01/25/2025 11:24 AM 286 mg/dL N Blood chemistry[[id number]] Glucose [Mass/volume] in Serum or Plasma [2345-7] 01/24/2025 12:59 PM 232 mg/dL N Blood chemistry[[id number]] Glucose [Mass/volume] in Serum or Plasma [2345-7] 01/24/2025 04:09 PM 220 mg/dL N Blood chemistry[[id number]] Glucose [Mass/volume] in Serum or Plasma [2345-7] 01/24/2025 09:13 AM 236 mg/dL N Blood chemistry[[id number]] Glucose [Mass/volume] in Serum or Plasma [2345-7] 01/24/2025 12:02 PM 200 mg/dL N Blood chemistry[[id number]] Glucose [Mass/volume] in Serum or Plasma [2345-7] 01/23/2025 11:57 AM 235 mg/dL N Blood chemistry[[id number]] Glucose [Mass/volume] in Serum or Plasma [2345-7] 01/23/2025 04:32 PM 204 mg/dL N Blood chemistry[[id number]] Glucose [Mass/volume] in Serum or Plasma [2345-7] 01/23/2025 09:27 AM 193 mg/dL N Blood chemistry[[id number]] Glucose [Mass/volume] in Serum or Plasma [2345-7] 01/23/2025 12:33 PM 199 mg/dL N Blood chemistry[[id number]] Glucose [Mass/volume] in Serum or Plasma [2345-7] 01/22/2025 01:42 PM 180 mg/dL N Blood chemistry[[id number]] Glucose [Mass/volume] in Serum or Plasma [2345-7] 01/22/2025 04:08 PM 246 mg/dL N Blood chemistry[[id number]] Glucose [Mass/volume] in Serum or Plasma [2345-7] 01/22/2025 09:01 AM 193 mg/dL N Blood chemistry[[id number]] Glucose [Mass/volume] in Serum or Plasma [2345-7] 01/22/2025 11:26 AM 194 mg/dL N Blood chemistry[[id number]] Glucose [Mass/volume] in Serum or Plasma [2345-7] 01/21/2025 01:27 PM 226 mg/dL N Blood chemistry[[id number]] Glucose [Mass/volume] in Serum or Plasma [2345-7] 01/21/2025 04:16 PM 212 mg/dL N Blood chemistry[[id number]] Glucose [Mass/volume] in Serum or Plasma [2345-7] 01/21/2025 09:12 AM 187 mg/dL N Blood chemistry[[id number]] Glucose [Mass/volume] in Serum or Plasma [2345-7] 01/21/2025 11:24 AM 181 mg/dL N Blood chemistry[[id number]] Glucose [Mass/volume] in Serum or Plasma [2345-7] 01/20/2025 01:15 PM 209 mg/dL N Blood chemistry[[id number]] Glucose [Mass/volume] in Serum or Plasma [2345-7] 01/20/2025 04:17 PM 250 mg/dL N Blood chemistry[[id number]] Glucose [Mass/volume] in Serum or Plasma [2345-7] 01/20/2025 09:23 AM 228 mg/dL N Blood chemistry[[id number]] Glucose [Mass/volume] in Serum or Plasma [2345-7] 01/20/2025 11:38 AM 179 mg/dL N Blood chemistry[[id number]] Glucose [Mass/volume] in Serum or Plasma [2345-7] 01/19/2025 01:30 PM 335 mg/dL N Blood chemistry[[id number]] Glucose [Mass/volume] in Serum or Plasma [2345-7] 01/19/2025 04:32 PM 222 mg/dL N Blood chemistry[[id number]] Glucose [Mass/volume] in Serum or Plasma [2345-7] 01/19/2025 09:24 AM 284 mg/dL N Blood chemistry[[id number]] Glucose [Mass/volume] in Serum or Plasma [2345-7] 01/19/2025 11:36 AM 166 mg/dL N Blood chemistry[[id number]] Glucose [Mass/volume] in Serum or Plasma [2345-7] 01/18/2025 03:56 PM 194 mg/dL N Blood chemistry[[id number]] Glucose [Mass/volume] in Serum or Plasma [2345-7] 01/18/2025 05:21 PM 178 mg/dL N Blood chemistry[[id number]] Glucose [Mass/volume] in Serum or Plasma [2345-7] 01/18/2025 09:43 AM 183 mg/dL N Blood chemistry[[id number]] Glucose [Mass/volume] in Serum or Plasma [2345-7] 01/18/2025 11:25 AM 156 mg/dL N Blood chemistry[[id number]] Glucose [Mass/volume] in Serum or Plasma [2345-7] 01/17/2025 01:33 PM 169 mg/dL N Blood chemistry[[id number]] Glucose [Mass/volume] in Serum or Plasma [2345-7] 01/17/2025 04:53 PM 200 mg/dL N Blood chemistry[[id number]] Glucose [Mass/volume] in Serum or Plasma [2345-7] 01/17/2025 09:01 AM 229 mg/dL N Blood chemistry[[id number]] Glucose [Mass/volume] in Serum or Plasma [2345-7] 01/17/2025 01:40 PM 180 mg/dL N Blood chemistry[[id number]] Glucose [Mass/volume] in Serum or Plasma [2345-7] 01/16/2025 11:40 AM 173 mg/dL N Blood chemistry[[id number]] Glucose [Mass/volume] in Serum or Plasma [2345-7] 01/16/2025 05:58 PM 198 mg/dL N Blood chemistry[[id number]] Glucose [Mass/volume] in Serum or Plasma [2345-7] 01/16/2025 09:41 AM 199 mg/dL N Blood chemistry[[id number]] Glucose [Mass/volume] in Serum or Plasma [2345-7] 01/16/2025 12:20 PM 187 mg/dL N Blood chemistry[[id number]] Glucose [Mass/volume] in Serum or Plasma [2345-7] 01/15/2025 01:57 PM 171 mg/dL N Blood chemistry[[id number]] Glucose [Mass/volume] in Serum or Plasma [2345-7] 01/15/2025 04:33 PM 220 mg/dL N Blood chemistry[[id number]] Glucose [Mass/volume] in Serum or Plasma [2345-7] 01/15/2025 09:24 AM 204 mg/dL N Blood chemistry[[id number]] Glucose [Mass/volume] in Serum or Plasma [2345-7] 01/15/2025 11:49 AM 170 mg/dL N Blood chemistry[[id number]] Glucose [Mass/volume] in Serum or Plasma [2345-7] 01/14/2025 02:42 PM 174 mg/dL N Blood chemistry[[id number]] Glucose [Mass/volume] in Serum or Plasma [2345-7] 01/14/2025 03:57 PM 233 mg/dL N Blood chemistry[[id number]] Glucose [Mass/volume] in Serum or Plasma [2345-7] 01/14/2025 09:21 AM 232 mg/dL N Blood chemistry[[id number]] Glucose [Mass/volume] in Serum or Plasma [2345-7] 01/14/2025 12:00 PM 126 mg/dL N Blood chemistry[[id number]] Glucose [Mass/volume] in Serum or Plasma [2345-7] 01/13/2025 04:03 PM 151 mg/dL N Blood chemistry[[id number]] Glucose [Mass/volume] in Serum or Plasma [2345-7] 01/13/2025 04:04 PM 233 mg/dL N Blood chemistry[[id number]] Glucose [Mass/volume] in Serum or Plasma [2345-7] 01/13/2025 09:33 AM 166 mg/dL N Blood chemistry[[id number]] Glucose [Mass/volume] in Serum or Plasma [2345-7] 01/13/2025 12:55 PM 179 mg/dL N Blood chemistry[[id number]] Glucose [Mass/volume] in Serum or Plasma [2345-7] 01/12/2025 01:41 PM 271 mg/dL N Blood chemistry[[id number]] Glucose [Mass/volume] in Serum or Plasma [2345-7] 01/12/2025 04:28 PM 239 mg/dL N Blood chemistry[[id number]] Glucose [Mass/volume] in Serum or Plasma [2345-7] 01/12/2025 09:00 AM 248 mg/dL N Blood chemistry[[id number]] Glucose [Mass/volume] in Serum or Plasma [2345-7] 01/12/2025 11:26 AM 237 mg/dL N Blood chemistry[[id number]] Glucose [Mass/volume] in Serum or Plasma [2345-7] 01/11/2025 01:44 PM 217 mg/dL N Blood chemistry[[id number]] Glucose [Mass/volume] in Serum or Plasma [2345-7] 01/11/2025 03:59 PM 312 mg/dL N Blood chemistry[[id number]] Glucose [Mass/volume] in Serum or Plasma [2345-7] 01/11/2025 09:09 AM 250 mg/dL N Blood chemistry[[id number]] Glucose [Mass/volume] in Serum or Plasma [2345-7] 01/11/2025 11:35 AM 243 mg/dL N Blood chemistry[[id number]] Glucose [Mass/volume] in Serum or Plasma [2345-7] 01/10/2025 01:11 PM 263 mg/dL N Blood chemistry[[id number]] Glucose [Mass/volume] in Serum or Plasma [2345-7] 01/10/2025 04:07 PM 311 mg/dL N Blood chemistry[[id number]] Glucose [Mass/volume] in Serum or Plasma [2345-7] 01/10/2025 09:31 AM 322 mg/dL N Blood chemistry[[id number]] Glucose [Mass/volume] in Serum or Plasma [2345-7] 01/10/2025 11:30 AM 252 mg/dL N Blood chemistry[[id number]] Glucose [Mass/volume] in Serum or Plasma [2345-7] 01/09/2025 03:34 PM 323 mg/dL N Blood chemistry[[id number]] Glucose [Mass/volume] in Serum or Plasma [2345-7] 01/09/2025 10:48 AM 359 mg/dL N Blood chemistry[[id number]] Glucose [Mass/volume] in Serum or Plasma [2345-7] 01/09/2025 04:56 PM 332 mg/dL N Blood chemistry[[id number]] Glucose [Mass/volume] in Serum or Plasma [2345-7] 01/09/2025 12:39 PM 242 mg/dL N Blood chemistry[[id number]] Glucose [Mass/volume] in Serum or Plasma [2345-7] 01/08/2025 01:51 PM 217 mg/dL N Blood chemistry[[id number]] Glucose [Mass/volume] in Serum or Plasma [2345-7] 01/08/2025 04:12 PM 234 mg/dL N Blood chemistry[[id number]] Glucose [Mass/volume] in Serum or Plasma [2345-7] 01/08/2025 09:05 AM 283 mg/dL N Blood chemistry[[id number]] Glucose [Mass/volume] in Serum or Plasma [2345-7] 01/08/2025 11:37 AM 210 mg/dL N Blood chemistry[[id number]] Glucose [Mass/volume] in Serum or Plasma [2345-7] 01/07/2025 02:34 PM 241 mg/dL N Blood chemistry[[id number]] Glucose [Mass/volume] in Serum or Plasma [2345-7] 01/07/2025 04:09 PM 213 mg/dL N Blood chemistry[[id number]] Glucose [Mass/volume] in Serum or Plasma [2345-7] 01/07/2025 09:13 AM 267 mg/dL N Blood chemistry[[id number]] Glucose [Mass/volume] in Serum or Plasma [2345-7] 01/06/2025 04:18 PM 323 mg/dL N Blood chemistry[[id number]] Glucose [Mass/volume] in Serum or Plasma [2345-7] 01/06/2025 11:50 AM 217 mg/dL N Blood chemistry[[id number]] Glucose [Mass/volume] in Serum or Plasma [2345-7] 01/05/2025 01:21 PM 228 mg/dL N Blood chemistry[[id number]] Glucose [Mass/volume] in Serum or Plasma [2345-7] 01/05/2025 04:15 PM 270 mg/dL N Blood chemistry[[id number]] Glucose [Mass/volume] in Serum or Plasma [2345-7] 01/05/2025 09:14 AM 216 mg/dL N Blood chemistry[[id number]] Glucose [Mass/volume] in Serum or Plasma [2345-7] 01/05/2025 11:31 AM 265 mg/dL N Blood chemistry[[id number]] Glucose [Mass/volume] in Serum or Plasma [2345-7] 01/04/2025 12:39 PM 270 mg/dL N Blood chemistry[[id number]] Glucose [Mass/volume] in Serum or Plasma [2345-7] 01/04/2025 03:56 PM 188 mg/dL N Blood chemistry[[id number]] Glucose [Mass/volume] in Serum or Plasma [2345-7] 01/04/2025 10:39 AM 289 mg/dL N Blood chemistry[[id number]] Glucose [Mass/volume] in Serum or Plasma [2345-7] 01/04/2025 01:15 PM 190 mg/dL N Blood chemistry[[id number]] Glucose [Mass/volume] in Serum or Plasma [2345-7] 01/04/2025 05:09 PM 234 mg/dL N Blood chemistry[[id number]] Glucose [Mass/volume] in Serum or Plasma [2345-7] 01/03/2025 04:36 PM 223 mg/dL N Blood chemistry[[id number]] Glucose [Mass/volume] in Serum or Plasma [2345-7] 01/03/2025 08:58 AM 219 mg/dL N Blood chemistry[[id number]] Glucose [Mass/volume] in Serum or Plasma [2345-7] 01/03/2025 11:28 AM 222 mg/dL N Blood chemistry[[id number]] Glucose [Mass/volume] in Serum or Plasma [2345-7] 01/02/2025 12:03 PM 267 mg/dL N Blood chemistry[[id number]] Glucose [Mass/volume] in Serum or Plasma [2345-7] 01/02/2025 04:39 PM 292 mg/dL N Blood chemistry[[id number]] Glucose [Mass/volume] in Serum or Plasma [2345-7] 01/02/2025 09:14 AM 137 mg/dL N Blood chemistry[[id number]] Glucose [Mass/volume] in Serum or Plasma [2345-7] 01/02/2025 02:11 PM 103 mg/dL N Blood chemistry[[id number]] Glucose [Mass/volume] in Serum or Plasma [2345-7] 01/01/2025 12:42 PM 200 mg/dL N Blood chemistry[[id number]] Glucose [Mass/volume] in Serum or Plasma [2345-7] 01/01/2025 05:13 PM 282 mg/dL N Blood chemistry[[id number]] Glucose [Mass/volume] in Serum or Plasma [2345-7] 01/01/2025 12:11 PM 225 mg/dL N Blood chemistry[[id number]] Glucose [Mass/volume] in Serum or Plasma [2345-7] 01/01/2025 09:59 AM 311 mg/dL N Blood chemistry[[id number]] Glucose [Mass/volume] in Serum or Plasma [2345-7] 12/31/2024 01:45 PM 241 mg/dL N Blood chemistry[[id number]] Glucose [Mass/volume] in Serum or Plasma [2345-7] 12/31/2024 12:03 PM 295 mg/dL N Blood chemistry[[id number]] Glucose [Mass/volume] in Serum or Plasma [2345-7] 12/31/2024 09:29 AM 286 mg/dL N Blood chemistry[[id number]] Glucose [Mass/volume] in Serum or Plasma [2345-7] 12/31/2024 06:39 AM 368 mg/dL N Tuberculosis reaction wheal[ 86911-5] Tuberculosis reaction wheal [30760-3] 12/29/2024 01:55 PM 0 mm NEG Blood chemistry[[id number]] Glucose [Mass/volume] in Serum or Plasma [2345-7] 12/30/2024 11:47 AM 299 mg/dL N Blood chemistry[[id number]] Glucose [Mass/volume] in Serum or Plasma [2345-7] 12/30/2024 03:33 PM 391 mg/dL N Blood chemistry[[id number]] Glucose [Mass/volume] in Serum or Plasma [2345-7] 12/30/2024 09:14 AM 394 mg/dL N Blood chemistry[[id number]] Glucose [Mass/volume] in Serum or Plasma [2345-7] 12/30/2024 11:36 AM 248 mg/dL N Blood chemistry[[id number]] Glucose [Mass/volume] in Serum or Plasma [2345-7] 12/29/2024 01:19 PM 299 mg/dL N Blood chemistry[[id number]] Glucose [Mass/volume] in Serum or Plasma [2345-7] 12/29/2024 04:17 PM 311 mg/dL N Blood chemistry[[id number]] Glucose [Mass/volume] in Serum or Plasma [2345-7] 12/29/2024 09:16 AM 335 mg/dL N Tuberculosis reaction wheal[ 51247-0] Tuberculosis reaction wheal [00257-1] 12/29/2024 01:55 PM See note TB test Blood chemistry[[id number]] Glucose [Mass/volume] in Serum or Plasma [2345-7] 12/29/2024 10:21 AM 311 mg/dL N Blood chemistry[[id number]] Glucose [Mass/volume] in Serum or Plasma [2345-7] 12/20/2024 11:30 AM 245 mg/dL N Blood chemistry[[id number]] Glucose [Mass/volume] in Serum or Plasma [2345-7] 12/19/2024 01:23 PM 249 mg/dL N Blood chemistry[[id number]] Glucose [Mass/volume] in Serum or Plasma [2345-7] 12/19/2024 04:13 PM 286 mg/dL N Blood chemistry[[id number]] Glucose [Mass/volume] in Serum or Plasma [2345-7] 12/19/2024 08:24 AM 193 mg/dL N Blood chemistry[[id number]] Glucose [Mass/volume] in Serum or Plasma [2345-7] 12/19/2024 01:16 PM 200 mg/dL N Blood chemistry[[id number]] Glucose [Mass/volume] in Serum or Plasma [2345-7] 12/18/2024 12:48 PM 288 mg/dL N Blood chemistry[[id number]] Glucose [Mass/volume] in Serum or Plasma [2345-7] 12/18/2024 10:35 AM 194 mg/dL N Blood chemistry[[id number]] Glucose [Mass/volume] in Serum or Plasma [2345-7] 12/18/2024 04:18 PM 238 mg/dL N Blood chemistry[[id number]] Glucose [Mass/volume] in Serum or Plasma [2345-7] 12/18/2024 12:56 PM 214 mg/dL N Blood chemistry[[id number]] Glucose [Mass/volume] in Serum or Plasma [2345-7] 12/17/2024 12:58 PM 200 mg/dL N Blood chemistry[[id number]] Glucose [Mass/volume] in Serum or Plasma [2345-7] 12/17/2024 04:59 PM 235 mg/dL N Blood chemistry[[id number]] Glucose [Mass/volume] in Serum or Plasma [2345-7] 12/17/2024 10:19 AM 228 mg/dL N Blood chemistry[[id number]] Glucose [Mass/volume] in Serum or Plasma [2345-7] 12/17/2024 11:45 AM 198 mg/dL N Blood chemistry[[id number]] Glucose [Mass/volume] in Serum or Plasma [2345-7] 12/17/2024 06:47 AM 189 mg/dL N Blood chemistry[[id number]] Glucose [Mass/volume] in Serum or Plasma [2345-7] 12/16/2024 04:49 PM 152 mg/dL N Blood chemistry[[id number]] Glucose [Mass/volume] in Serum or Plasma [2345-7] 12/16/2024 09:26 AM 172 mg/dL N Blood chemistry[[id number]] Glucose [Mass/volume] in Serum or Plasma [2345-7] 12/16/2024 11:56 AM 227 mg/dL N Blood chemistry[[id number]] Glucose [Mass/volume] in Serum or Plasma [2345-7] 12/15/2024 01:02 PM 235 mg/dL N Blood chemistry[[id number]] Glucose [Mass/volume] in Serum or Plasma [2345-7] 12/15/2024 04:51 PM 202 mg/dL N Blood chemistry[[id number]] Glucose [Mass/volume] in Serum or Plasma [2345-7] 12/15/2024 09:10 AM 209 mg/dL N Blood chemistry[[id number]] Glucose [Mass/volume] in Serum or Plasma [2345-7] 12/15/2024 11:44 AM 200 mg/dL N Blood chemistry[[id number]] Glucose [Mass/volume] in Serum or Plasma [2345-7] 12/14/2024 03:10 PM 191 mg/dL N Blood chemistry[[id number]] Glucose [Mass/volume] in Serum or Plasma [2345-7] 12/14/2024 04:16 PM 159 mg/dL N Blood chemistry[[id number]] Glucose [Mass/volume] in Serum or Plasma [2345-7] 12/14/2024 09:12 AM 188 mg/dL N Blood chemistry[[id number]] Glucose [Mass/volume] in Serum or Plasma [2345-7] 12/14/2024 11:48 AM 256 mg/dL N Blood chemistry[[id number]] Glucose [Mass/volume] in Serum or Plasma [2345-7] 12/13/2024 11:12 AM 201 mg/dL N Blood chemistry[[id number]] Glucose [Mass/volume] in Serum or Plasma [2345-7] 12/13/2024 09:03 AM 242 mg/dL N Blood chemistry[[id number]] Glucose [Mass/volume] in Serum or Plasma [2345-7] 12/13/2024 04:04 PM 281 mg/dL N Blood chemistry[[id number]] Glucose [Mass/volume] in Serum or Plasma [2345-7] 12/13/2024 11:54 AM 212 mg/dL N Blood chemistry[[id number]] Glucose [Mass/volume] in Serum or Plasma [2345-7] 12/13/2024 09:06 AM 305 mg/dL N Blood chemistry[[id number]] Glucose [Mass/volume] in Serum or Plasma [2345-7] 12/12/2024 04:42 PM 269 mg/dL N Blood chemistry[[id number]] Glucose [Mass/volume] in Serum or Plasma [2345-7] 12/12/2024 11:33 AM 203 mg/dL N Blood chemistry[[id number]] Glucose [Mass/volume] in Serum or Plasma [2345-7] 12/12/2024 09:04 AM 275 mg/dL N Blood chemistry[[id number]] Glucose [Mass/volume] in Serum or Plasma [2345-7] 12/11/2024 03:02 PM 278 mg/dL N Blood chemistry[[id number]] Glucose [Mass/volume] in Serum or Plasma [2345-7] 12/11/2024 09:17 AM 248 mg/dL N Blood chemistry[[id number]] Glucose [Mass/volume] in Serum or Plasma [2345-7] 12/11/2024 04:53 PM 250 mg/dL N Blood chemistry[[id number]] Glucose [Mass/volume] in Serum or Plasma [2345-7] 12/11/2024 11:52 AM 259 mg/dL N Blood chemistry[[id number]] Glucose [Mass/volume] in Serum or Plasma [2345-7] 12/10/2024 05:50 PM 263 mg/dL N Blood chemistry[[id number]] Glucose [Mass/volume] in Serum or Plasma [2345-7] 12/10/2024 03:17 PM 284 mg/dL N Blood chemistry[[id number]] Glucose [Mass/volume] in Serum or Plasma [2345-7] 12/10/2024 12:38 PM 221 mg/dL N Blood chemistry[[id number]] Glucose [Mass/volume] in Serum or Plasma [2345-7] 12/10/2024 10:54 AM 245 mg/dL N Blood chemistry[[id number]] Glucose [Mass/volume] in Serum or Plasma [2345-7] 12/09/2024 02:23 PM 214 mg/dL N Blood chemistry[[id number]] Glucose [Mass/volume] in Serum or Plasma [2345-7] 12/09/2024 09:57 AM 223 mg/dL N Blood chemistry[[id number]] Glucose [Mass/volume] in Serum or Plasma [2345-7] 12/09/2024 05:07 PM 225 mg/dL N Blood chemistry[[id number]] Glucose [Mass/volume] in Serum or Plasma [2345-7] 12/09/2024 12:42 PM 233 mg/dL N Blood chemistry[[id number]] Glucose [Mass/volume] in Serum or Plasma [2345-7] 12/08/2024 12:54 PM 297 mg/dL N Blood chemistry[[id number]] Glucose [Mass/volume] in Serum or Plasma [2345-7] 12/08/2024 10:19 AM 234 mg/dL N Blood chemistry[[id number]] Glucose [Mass/volume] in Serum or Plasma [2345-7] 12/08/2024 06:40 PM 229 mg/dL N Blood chemistry[[id number]] Glucose [Mass/volume] in Serum or Plasma [2345-7] 12/08/2024 05:22 PM 189 mg/dL N Blood chemistry[[id number]] Glucose [Mass/volume] in Serum or Plasma [2345-7] 12/08/2024 12:40 PM 227 mg/dL N Blood chemistry[[id number]] Glucose [Mass/volume] in Serum or Plasma [2345-7] 12/07/2024 11:23 AM 199 mg/dL N Blood chemistry[[id number]] Glucose [Mass/volume] in Serum or Plasma [2345-7] 12/07/2024 06:30 PM 186 mg/dL N Blood chemistry[[id number]] Glucose [Mass/volume] in Serum or Plasma [2345-7] 12/07/2024 02:55 PM 306 mg/dL N Blood chemistry[[id number]] Glucose [Mass/volume] in Serum or Plasma [2345-7] 12/06/2024 02:00 PM 316 mg/dL N Blood chemistry[[id number]] Glucose [Mass/volume] in Serum or Plasma [2345-7] 12/06/2024 10:16 AM 317 mg/dL N Blood chemistry[[id number]] Glucose [Mass/volume] in Serum or Plasma [2345-7] 12/06/2024 05:22 PM 205 mg/dL N Blood chemistry[[id number]] Glucose [Mass/volume] in Serum or Plasma [2345-7] 12/06/2024 01:56 PM 281 mg/dL N Blood chemistry[[id number]] Glucose [Mass/volume] in Serum or Plasma [2345-7] 12/05/2024 06:08 PM 217 mg/dL N Blood chemistry[[id number]] Glucose [Mass/volume] in Serum or Plasma [2345-7] 12/05/2024 03:22 PM 326 mg/dL N Blood chemistry[[id number]] Glucose [Mass/volume] in Serum or Plasma [2345-7] 12/05/2024 01:52 PM 188 mg/dL N Blood chemistry[[id number]] Glucose [Mass/volume] in Serum or Plasma [2345-7] 12/05/2024 11:03 AM 288 mg/dL N Blood chemistry[[id number]] Glucose [Mass/volume] in Serum or Plasma [2345-7] 12/04/2024 03:22 PM 378 mg/dL N Blood chemistry[[id number]] Glucose [Mass/volume] in Serum or Plasma [2345-7] 12/04/2024 11:50 AM 326 mg/dL N Blood chemistry[[id number]] Glucose [Mass/volume] in Serum or Plasma [2345-7] 12/04/2024 06:03 PM 318 mg/dL N Blood chemistry[[id number]] Glucose [Mass/volume] in Serum or Plasma [2345-7] 12/04/2024 01:47 PM 346 mg/dL N Blood chemistry[[id number]] Glucose [Mass/volume] in Serum or Plasma [2345-7] 12/03/2024 02:46 PM 300 mg/dL N Blood chemistry[[id number]] Glucose [Mass/volume] in Serum or Plasma [2345-7] 12/03/2024 11:02 AM 398 mg/dL N Blood chemistry[[id number]] Glucose [Mass/volume] in Serum or Plasma [2345-7] 12/03/2024 06:00 PM 400 mg/dL N Blood chemistry[[id number]] Glucose [Mass/volume] in Serum or Plasma [2345-7] 12/03/2024 02:45 PM 270 mg/dL N Blood chemistry[[id number]] Glucose [Mass/volume] in Serum or Plasma [2345-7] 12/02/2024 01:49 PM 281 mg/dL N Blood chemistry[[id number]] Glucose [Mass/volume] in Serum or Plasma [2345-7] 11/25/2024 04:06 PM 385 mg/dL N Blood chemistry[[id number]] Glucose [Mass/volume] in Serum or Plasma [2345-7] 11/25/2024 10:03 AM 267 mg/dL N Blood chemistry[[id number]] Glucose [Mass/volume] in Serum or Plasma [2345-7] 11/25/2024 05:14 PM 222 mg/dL N Blood chemistry[[id number]] Glucose [Mass/volume] in Serum or Plasma [2345-7] 11/25/2024 11:57 AM 215 mg/dL N Blood chemistry[[id number]] Glucose [Mass/volume] in Serum or Plasma [2345-7] 11/24/2024 12:53 PM 213 mg/dL N Blood chemistry[[id number]] Glucose [Mass/volume] in Serum or Plasma [2345-7] 11/24/2024 10:16 AM 395 mg/dL N Blood chemistry[[id number]] Glucose [Mass/volume] in Serum or Plasma [2345-7] 11/24/2024 05:39 PM 222 mg/dL N Blood chemistry[[id number]] Glucose [Mass/volume] in Serum or Plasma [2345-7] 11/24/2024 12:52 PM 275 mg/dL N Blood chemistry[[id number]] Glucose [Mass/volume] in Serum or Plasma [2345-7] 11/23/2024 02:43 PM 248 mg/dL N Blood chemistry[[id number]] Glucose [Mass/volume] in Serum or Plasma [2345-7] 11/23/2024 09:57 AM 193 mg/dL N Blood chemistry[[id number]] Glucose [Mass/volume] in Serum or Plasma [2345-7] 11/23/2024 04:28 PM 218 mg/dL N Blood chemistry[[id number]] Glucose [Mass/volume] in Serum or Plasma [2345-7] 11/23/2024 11:36 AM 256 mg/dL N Blood chemistry[[id number]] Glucose [Mass/volume] in Serum or Plasma [2345-7] 11/22/2024 01:06 PM 359 mg/dL N Blood chemistry[[id number]] Glucose [Mass/volume] in Serum or Plasma [2345-7] 11/22/2024 11:07 AM 312 mg/dL N Blood chemistry[[id number]] Glucose [Mass/volume] in Serum or Plasma [2345-7] 11/22/2024 06:11 PM 294 mg/dL N Blood chemistry[[id number]] Glucose [Mass/volume] in Serum or Plasma [2345-7] 11/22/2024 03:53 PM 258 mg/dL N Blood chemistry[[id number]] Glucose [Mass/volume] in Serum or Plasma [2345-7] 11/21/2024 06:03 PM 246 mg/dL N Blood chemistry[[id number]] Glucose [Mass/volume] in Serum or Plasma [2345-7] 11/21/2024 04:01 PM 335 mg/dL N Blood chemistry[[id number]] Glucose [Mass/volume] in Serum or Plasma [2345-7] 11/21/2024 01:48 PM 227 mg/dL N Blood chemistry[[id number]] Glucose [Mass/volume] in Serum or Plasma [2345-7] 11/21/2024 11:39 AM 156 mg/dL N Blood chemistry[[id number]] Glucose [Mass/volume] in Serum or Plasma [2345-7] 11/20/2024 01:20 PM 364 mg/dL N Blood chemistry[[id number]] Glucose [Mass/volume] in Serum or Plasma [2345-7] 11/20/2024 10:11 AM 338 mg/dL N Blood chemistry[[id number]] Glucose [Mass/volume] in Serum or Plasma [2345-7] 11/20/2024 04:41 PM 250 mg/dL N Blood chemistry[[id number]] Glucose [Mass/volume] in Serum or Plasma [2345-7] 11/20/2024 12:21 PM 268 mg/dL N Blood chemistry[[id number]] Glucose [Mass/volume] in Serum or Plasma [2345-7] 11/19/2024 05:30 PM 208 mg/dL N Blood chemistry[[id number]] Glucose [Mass/volume] in Serum or Plasma [2345-7] 11/19/2024 03:47 PM 181 mg/dL N Blood chemistry[[id number]] Glucose [Mass/volume] in Serum or Plasma [2345-7] 11/19/2024 12:22 PM 292 mg/dL N Blood chemistry[[id number]] Glucose [Mass/volume] in Serum or Plasma [2345-7] 11/19/2024 09:40 AM 249 mg/dL N Blood chemistry[[id number]] Glucose [Mass/volume] in Serum or Plasma [2345-7] 11/18/2024 01:02 PM 374 mg/dL N Blood chemistry[[id number]] Glucose [Mass/volume] in Serum or Plasma [2345-7] [...] COVID-19 Vaccine Unassigned Route of Administration Refused Influenza Vaccine Unassigned Route of Administration 1 Completed Medications Medication Instructions Route Dosage Frequency Start Date Stop Date Indications Status Abrysvo (rsv vac, pref a and pref b(pf)) 120 mcg/0.5 mL recon soln (Abrysvo (rsv vac, pref a and pref b(pf))) 0.5ml, intramuscular , Once - One Time, Clinical indication: RSV vaccination intramuscu lar 1.0 06/21 Active Afluria Qd 2022-(3yr up)(PF) (flu vac [id number] 36mos up(pf)) 60 mcg (15 mcg x 4)/0.5 mL syringe (Afluria Qd 2022-(3yr up)(PF) (flu vac sr1524-09 36mos up(pf))) 0.5ml, intramuscular , Once - [...] rising and call pcp for er order [facility] 1.0 05/24 Active oxycodone 5 mg capsule [...] PRN, For pain/fever oral 1.0 6.0 h 02/28/ 2025 03/19 /2025 Active albuterol sulfate 90 mcg/actuation HFA aerosol [...] Bedtime oral 1.0 12/21 Active Thera-M (multivitamin,t x-xyxf-vd-fa-mi n) 27-0.4 mg tablet (Thera-M (multivitamin,t p-tell-za-fa-mi n)) 1 tab, oral, Once A Day, [...] s 1.0 12.0 h 12/01 Active Thera-M (zebwhlxx-rns-m dennise fum-folic ac) 19 mg iron- 400 mcg tablet (Thera-M (swovrjer-wsu-w dennise fum-folic ac)) 1 tab, oral, Once [...] daysDO NOT GIVE TO RENAL PATIENTS--GO TO DULCOLAX ORDERS oral 1.0 72.0 h 2024 Active [...] admission intraderma l 1.0 12/29 Active Thera-M (tugvnbog-qto-d dennise fum-folic ac) 19 mg iron- 400 mcg tablet (Thera-M (mfqmioas-sgg-y dennise fum-folic ac)) 1 tab, oral, Once [...] new patch. transderma l 1.0 72.0 h 07/24 Active fluconazole 200 mg tablet (fluconazole) 2 [...] Mix as directed. oral 1.0 1.0 d 07/04 Active furosemide 20 mg tablet (furosemide) 1 tab, oral, Once A Day oral 1.0 1.0 d 2024 Active hydrocodone-delphine taminophen 7.5-325 mg tablet (hydrocodone-ac etaminophen) 1 tab, oral, Every 12 Hours - PRN, For pain, exempt R52 oral 1.0 12.0 h 07/12 Active insulin glargine-yfgn 100 unit/mL (3 mL) [...] before and after use(SASH) 1.0 8.0 h 06/27 Active nystatin 100,000 unit/gram powder (nystatin) 1 [...] with foam dressing. topical 1.0 12.0 h 06/22 Active simethicone 125 mg capsule (simethicone) 2 caps (250 mg), oral, Before Meals and At Bedtime oral 1.0 2024 Active Triad Wound Dressing (wound dressings) - paste (Triad Wound Dressing (wound dressings)) as directed, topical, Every Shift, buttock: Cleanse with ns and gauze apply triad and cover with bordered foam topical 1.0 8.0 h 06/26 Active MediHoney (honey) (honey) 80 % gel (MediHoney (honey) (honey)) to sacrum, topical, Once A Day, Sacrum: Cleanse with ns and gauze, apply medi-honey to wound bed and cover with foam dressing topical 1.0 1.0 d 07/18 Active Miralax (polyethylene glycol 3350) 17 gram/dose powder (Miralax (polyethylene glycol 3350)) 5ml, oral, Other oral 1.0 07/04 Active methenamine hippurate 1 gram tablet (methenamine hippurate) 1 gram, oral, Twice A Day oral 1.0 12.0 h 2024 Active Miralax (polyethylene glycol 3350) 17 gram/dose powder (Miralax (polyethylene glycol 3350)) 17gram, oral, Once A Day - PRN, Mix with 8 oz of water or juice prn constipation oral 1.0 1.0 d 2024 Active hydrocodone-delphine taminophen 7.5-325 mg tablet (hydrocodone-ac etaminophen) 1 tab, oral, Every 12 Hours - PRN, For pain, exempt R52 oral 1.0 12.0 h 07/20 Active Silvadene (silver sulfadiazine) 1 % cream (Silvadene (silver sulfadiazine)) as directed, topical, Every Shift, Buttock: Apply silvadene cream to buttock and saji topical 1.0 8.0 h 2024 Active Afluria 2150-3592 (3yr up)(PF) (flu vac rn0235-17 36mos up(pf)) 45 mcg (15 mcg x 3)/0.5 m syringe (Afluria 2856-3247 (3yr up)(PF) (flu vac yd0767-25 36mos up(pf))) 0.5ml, intramuscular , Once - One Time intramuscu lar 1.0 07/18 Active Afluria 2238-8091 (3yr up)(PF) (flu vac km9962-78 36mos up(pf)) 45 mcg (15 mcg x 3)/0.5 m syringe (Afluria 0066-1595 (3yr up)(PF) (flu vac ir2761-54 36mos up(pf))) 0.5ml, intramuscular , Once - One Time intramuscu lar 1.0 07/18 Active hydrocodone-delphine taminophen 7.5-325 mg tablet (hydrocodone-ac etaminophen) 1 tab, oral, Every 12 Hours - PRN, For pain, exempt R52 oral 1.0 12.0 h 07/28 Active fentanyl 100 mcg/hr patch 72 hour (fentanyl) 1 patch, transdermal, Every 72 Hours, Remove old patch before placing new patch. transderma l 1.0 72.0 h 2024 Active hydrocodone-delphine taminophen 7.5-325 mg tablet (hydrocodone-ac etaminophen) 1 tab, oral, Every 12 Hours, For pain, exempt R52 oral 1.0 12.0 h 2024 Active MediHoney (honey) (honey) 80 % gel (MediHoney (honey) (honey)) as directed, topical, Once A Day, Buttock: Clean with ns and gauze, apply medi-honey to wound bed and cover with foam dressing topical 1.0 1.0 d 2024 Active Vital Signs Date Vital Result Comment 06/21/2024 07:40 AM Temperature (8310-5) 97.6 [degF] Oxygen Saturation (12616-5) 99 % Respiratory Rate (9279-1) 18 /min Heart Rate (8867-4) 105 /min Blood Pressure Systolic (8480-6) 107 mm[Hg] Blood Pressure Diastolic (8462-4) 69 mm[Hg] 06/20/2024 07:31 PM Temperature (8310-5) 98.2 [degF] Oxygen Saturation (84652-7) 95 % Respiratory Rate (9279-1) 20 /min Heart Rate (8867-4) 105 /min Blood Pressure Systolic (8480-6) 104 mm[Hg] Blood Pressure Diastolic (8462-4) 69 mm[Hg] 06/20/2024 07:54 AM Temperature (8310-5) 97.4 [degF] Oxygen Saturation (30505-3) 97 % Respiratory Rate (9279-1) 16 /min Heart Rate (8867-4) 86 /min Blood Pressure Systolic (8480-6) 120 mm[Hg] Blood Pressure Diastolic (8462-4) 74 mm[Hg] 06/19/2024 10:46 PM Temperature (8310-5) 97 [degF] Oxygen Saturation (06252-5) 95 % Respiratory Rate (9279-1) 16 /min Heart Rate (8867-4) 70 /min Blood Pressure Systolic (8480-6) 112 mm[Hg] Blood Pressure Diastolic (8462-4) 78 mm[Hg] 06/19/2024 07:18 AM Temperature (8310-5) 97.3 [degF] Oxygen Saturation (58407-0) 94 % Respiratory Rate (9279-1) 19 /min Heart Rate (8867-4) 68 /min Blood Pressure Systolic (8480-6) 109 mm[Hg] Blood Pressure Diastolic (8462-4) 63 mm[Hg] 06/18/2024 11:55 PM Temperature (8310-5) 98 [degF] Oxygen Saturation (40051-6) 95 % Respiratory Rate (9279-1) 18 /min Heart Rate (8867-4) 70 /min Blood Pressure Systolic (8480-6) 130 mm[Hg] Blood Pressure Diastolic (8462-4) 78 mm[Hg] 06/18/2024 07:37 AM Temperature (8310-5) 98 [degF] Oxygen Saturation (99074-0) 100 % Respiratory Rate (9279-1) 18 /min Heart Rate (8867-4) 97 /min Blood Pressure Systolic (8480-6) 102 mm[Hg] Blood Pressure Diastolic (8462-4) 61 mm[Hg] 06/17/2024 10:05 PM Temperature (8310-5) 98 [degF] Oxygen Saturation (06330-6) 96 % Respiratory Rate (9279-1) 16 /min Heart Rate (8867-4) 76 /min Blood Pressure Systolic (8480-6) 132 mm[Hg] Blood Pressure Diastolic (8462-4) 88 mm[Hg] 06/17/2024 06:57 AM Temperature (8310-5) 97.4 [degF] Oxygen Saturation (73034-3) 93 % Respiratory Rate (9279-1) 16 /min Heart Rate (8867-4) 82 /min Blood Pressure Systolic (8480-6) 108 mm[Hg] Blood Pressure Diastolic (8462-4) 71 mm[Hg] 06/16/2024 08:22 PM Temperature (8310-5) 98.4 [degF] Oxygen Saturation (06839-3) 94 % Respiratory Rate (9279-1) 20 /min Heart Rate (8867-4) 92 /min Blood Pressure Systolic (8480-6) 110 mm[Hg] Blood Pressure Diastolic (8462-4) 79 mm[Hg] 06/14/2024 11:04 PM Body Height (8302-2) 68 [in_us] Body Weight (28926-1) 202 [lb_av] Body Mass Index (19348-2) 30.71 kg/m2 05/25/2024 10:58 AM Body Weight (60494-9) 202.4 [lb_av ] Body Mass Index (47316-9) 30.77 kg/m2 04/20/2024 11:06 AM Body Weight (23694-9) 201 [lb_av] Body Mass Index (68182-9) 30.56 kg/m2 04/13/2024 09:23 AM Body Weight (91299-9) 210.4 [lb_av ] Body Mass Index (36668-3) 31.99 kg/m2 05/04/2024 10:54 AM Body Weight (24390-7) 204 [lb_av] Body Mass Index (34362-7) 31.01 kg/m2 06/16/2024 06:33 AM Body Weight (90251-1) 198 [lb_av] Body Mass Index (90289-9) 30.1 kg/m2 05/05/2024 10:28 AM Body Weight (85757-4) 204 [lb_av] Body Mass Index (95307-0) 31.01 kg/m2 04/04/2024 02:53 PM Body Weight (73951-7) 215 [lb_av] Body Mass Index (40130-0) 32.69 kg/m2 05/18/2024 07:21 AM Body Weight (74364-3) 202.8 [lb_av ] Body Mass Index (81084-2) 30.83 kg/m2 04/12/2024 12:14 PM Body Weight (94577-9) 210 [lb_av] Body Mass Index (34579-3) 31.93 kg/m2 06/05/2024 12:53 PM Body Weight (66078-3) 202.2 [lb_av ] Body Mass Index (96152-9) 30.74 kg/m2 06/15/2024 10:07 AM Body Weight (33062-7) 198.2 [lb_av ] Body Mass Index (53348-2) 30.13 kg/m2 05/08/2024 02:35 PM Body Weight (40690-8) 208.2 [lb_av ] Body Mass Index (83079-0) 31.65 kg/m2 06/17/2024 11:18 AM Body Weight (24621-5) 198 [lb_av] Body Mass Index (53239-3) 30.1 kg/m2 05/10/2024 09:17 AM Body Weight (94518-5) 204.6 [lb_av ] Body Mass Index (53670-7) 31.11 kg/m2 05/07/2024 09:36 AM Body Weight (47154-9) 203.2 [lb_av ] Body Mass Index (42872-0) 30.89 kg/m2 04/27/2024 10:11 AM Body Weight (33277-4) 204.4 [lb_av ] Body Mass Index (65364-7) 31.08 kg/m2 04/08/2024 08:13 PM Body Weight (99478-4) 216 [lb_av] Body Mass Index (42711-3) 32.84 kg/m2 04/01/2024 11:23 AM Body Weight (58875-7) 216 [lb_av] Body Mass Index (02208-5) 32.84 kg/m2 03/30/2024 10:08 AM Body Weight (48864-9) 218.4 [lb_av ] Body Mass Index (36507-3) 33.2 kg/m2 04/02/2024 04:15 PM Body Weight (63950-1) 216 [lb_av] Body Mass Index (39147-9) 32.84 kg/m2 11/18/2024 03:03 PM Temperature (8310-5) 97.7 [degF] Oxygen Saturation (62810-7) 99 % Respiratory Rate (9279-1) 20 /min Heart Rate (8867-4) 91 /min Blood Pressure Systolic (8480-6) 159 mm[Hg] Blood Pressure Diastolic (8462-4) 97 mm[Hg] Body Weight (32379-6) 186.4 [lb_av] Body Mass Index (64850-9) 28.34 kg/m2 11/19/2024 04:19 AM Temperature (8310-5) 98 [degF] Oxygen Saturation (68951-2) 95 % Respiratory Rate (9279-1) 16 /min Heart Rate (8867-4) 70 /min Blood Pressure Systolic (8480-6) 112 mm[Hg] Blood Pressure Diastolic (8462-4) 80 mm[Hg] 11/19/2024 09:48 PM Temperature (8310-5) 98 [degF] Oxygen Saturation (26106-8) 95 % Respiratory Rate (9279-1) 16 /min Heart Rate (8867-4) 70 /min Blood Pressure Systolic (8480-6) 136 mm[Hg] Blood Pressure Diastolic (8462-4) 78 mm[Hg] 11/19/2024 03:05 PM Body Weight (96784-5) 185.8 [lb_av ] Body Mass Index (10756-1) 28.25 kg/m2 11/19/2024 10:46 AM Temperature (8310-5) 98 [degF] Oxygen Saturation (37422-6) 98 % Respiratory Rate (9279-1) 18 /min Heart Rate (8867-4) 79 /min Blood Pressure Systolic (8480-6) 104 mm[Hg] Blood Pressure Diastolic (8462-4) 46 mm[Hg] 11/20/2024 01:08 PM Body Weight (20393-0) 184.2 [lb_av ] Body Mass Index (65764-9) 28 kg/m2 11/20/2024 07:57 AM Temperature (8310-5) 97.3 [degF] Oxygen Saturation (22070-6) 97 % Respiratory Rate (9279-1) 18 /min Heart Rate (8867-4) 96 /min Blood Pressure Systolic (8480-6) 106 mm[Hg] Blood Pressure Diastolic (8462-4) 73 mm[Hg] 11/21/2024 02:24 AM Temperature (8310-5) 97 [degF] Oxygen Saturation (20364-6) 96 % Respiratory Rate (9279-1) 16 /min Heart Rate (8867-4) 80 /min Blood Pressure Systolic (8480-6) 120 mm[Hg] Blood Pressure Diastolic (8462-4) 88 mm[Hg] 11/21/2024 09:25 PM Temperature (8310-5) 97.7 [degF] Oxygen Saturation (44520-7) 93 % Respiratory Rate (9279-1) 20 /min Heart Rate (8867-4) 79 /min Blood Pressure Systolic (8480-6) 104 mm[Hg] Blood Pressure Diastolic (8462-4) 66 mm[Hg] 11/21/2024 05:39 PM Temperature (8310-5) 98.2 [degF] Oxygen Saturation (91971-3) 93 % Respiratory Rate (9279-1) 20 /min Heart Rate (8867-4) 72 /min Blood Pressure Systolic (8480-6) 140 mm[Hg] Blood Pressure Diastolic (8462-4) 68 mm[Hg] 11/22/2024 09:55 AM Temperature (8310-5) 98.1 [degF] Oxygen Saturation (51139-3) 96 % Respiratory Rate (9279-1) 18 /min Heart Rate (8867-4) 67 /min Blood Pressure Systolic (8480-6) 98 mm[Hg] Blood Pressure Diastolic (8462-4) 62 mm[Hg] 11/23/2024 05:54 AM Temperature (8310-5) 96.9 [degF] Oxygen Saturation (26159-1) 96 % Respiratory Rate (9279-1) 18 /min Heart Rate (8867-4) 94 /min Blood Pressure Systolic (8480-6) 120 mm[Hg] Blood Pressure Diastolic (8462-4) 71 mm[Hg] 11/22/2024 06:42 PM Temperature (8310-5) 97.1 [degF] Oxygen Saturation (44984-6) 97 % Respiratory Rate (9279-1) 22 /min Heart Rate (8867-4) 95 /min Blood Pressure Systolic (8480-6) 100 mm[Hg] Blood Pressure Diastolic (8462-4) 52 mm[Hg] 11/24/2024 07:06 AM Temperature (8310-5) 98 [degF] Oxygen Saturation (80661-3) 98 % Respiratory Rate (9279-1) 20 /min Heart Rate (8867-4) 62 /min Blood Pressure Systolic (8480-6) 145 mm[Hg] Blood Pressure Diastolic (8462-4) 65 mm[Hg] 11/23/2024 07:50 PM Temperature (8310-5) 97.1 [degF] Oxygen Saturation (74679-5) 99 % Respiratory Rate (9279-1) 19 /min Heart Rate (8867-4) 60 /min Blood Pressure Systolic (8480-6) 160 mm[Hg] Blood Pressure Diastolic (8462-4) 58 mm[Hg] 11/25/2024 07:04 AM Temperature (8310-5) 97.6 [degF] Oxygen Saturation (86694-5) 96 % Respiratory Rate (9279-1) 18 /min Heart Rate (8867-4) 72 /min Blood Pressure Systolic (8480-6) 142 mm[Hg] Blood Pressure Diastolic (8462-4) 76 mm[Hg] 11/24/2024 08:50 PM Temperature (8310-5) 97 [degF] Oxygen Saturation (61696-8) 95 % Respiratory Rate (9279-1) 16 /min Heart Rate (8867-4) 80 /min Blood Pressure Systolic (8480-6) 130 mm[Hg] Blood Pressure Diastolic (8462-4) 80 mm[Hg] 11/25/2024 10:07 PM Temperature (8310-5) 99.9 [degF] Oxygen Saturation (73720-2) 98 % Respiratory Rate (9279-1) 18 /min Heart Rate (8867-4) 88 /min Blood Pressure Systolic (8480-6) 96 mm[Hg] Blood Pressure Diastolic (8462-4) 70 mm[Hg] 12/03/2024 09:56 AM Temperature (8310-5) 98.1 [degF] Oxygen Saturation (54520-4) 97 % Respiratory Rate (9279-1) 19 /min Heart Rate (8867-4) 83 /min Blood Pressure Systolic (8480-6) 112 mm[Hg] Blood Pressure Diastolic (8462-4) 68 mm[Hg] 12/02/2024 11:39 PM Temperature (8310-5) 97 [degF] Oxygen Saturation (50602-0) 95 % Respiratory Rate (9279-1) 16 /min Heart Rate (8867-4) 70 /min Blood Pressure Systolic (8480-6) 112 mm[Hg] Blood Pressure Diastolic (8462-4) 80 mm[Hg] 12/04/2024 09:15 AM Temperature (8310-5) 98.2 [degF] Oxygen Saturation (39714-6) 98 % Respiratory Rate (9279-1) 20 /min Heart Rate (8867-4) 84 /min Blood Pressure Systolic (8480-6) 138 mm[Hg] Blood Pressure Diastolic (8462-4) 73 mm[Hg] 12/03/2024 09:53 PM Temperature (8310-5) 97 [degF] Oxygen Saturation (18109-9) 95 % Respiratory Rate (9279-1) 16 /min Heart Rate (8867-4) 64 /min Blood Pressure Systolic (8480-6) 138 mm[Hg] Blood Pressure Diastolic (8462-4) 70 mm[Hg] 12/04/2024 09:21 PM Oxygen Saturation (40758-7) 98 % 12/04/2024 09:20 PM Blood Pressure Systolic (8480-6) 1 24 mm[Hg] Blood Pressure Diastolic (8462-4) 80 mm[Hg] 12/04/2024 09:18 PM Temperature (8310-5) 97 [degF] Respiratory Rate (9279-1) 18 /min Heart Rate (8867-4) 80 /min 12/05/2024 06:51 PM Temperature (8310-5) 97.1 [degF] Oxygen Saturation (92179-2) 99 % Respiratory Rate (9279-1) 14 /min Heart Rate (8867-4) 84 /min Blood Pressure Systolic (8480-6) 88 mm[Hg] Blood Pressure Diastolic (8462-4) 53 mm[Hg] 12/05/2024 09:58 AM Temperature (8310-5) 98 [degF] Oxygen Saturation (12228-9) 97 % Respiratory Rate (9279-1) 17 /min Heart Rate (8867-4) 98 /min Blood Pressure Systolic (8480-6) 117 mm[Hg] Blood Pressure Diastolic (8462-4) 78 mm[Hg] 12/06/2024 11:21 AM Temperature (8310-5) 98.1 [degF] Oxygen Saturation (06152-7) 97 % Respiratory Rate (9279-1) 16 /min Heart Rate (8867-4) 70 /min Blood Pressure Systolic (8480-6) 128 mm[Hg] Blood Pressure Diastolic (8462-4) 70 mm[Hg] 12/06/2024 07:51 PM Temperature (8310-5) 97.2 [degF] Oxygen Saturation (12967-8) 97 % Respiratory Rate (9279-1) 16 /min Heart Rate (8867-4) 78 /min Blood Pressure Systolic (8480-6) 88 mm[Hg] Blood Pressure Diastolic (8462-4) 52 mm[Hg] 12/08/2024 10:40 AM Temperature (8310-5) 97.8 [degF] Oxygen Saturation (38544-9) 97 % Respiratory Rate (9279-1) 18 /min Heart Rate (8867-4) 88 /min Blood Pressure Systolic (8480-6) 124 mm[Hg] Blood Pressure Diastolic (8462-4) 66 mm[Hg] 12/08/2024 12:40 AM Temperature (8310-5) 96.8 [degF] Oxygen Saturation (83515-0) 98 % Respiratory Rate (9279-1) 16 /min Heart Rate (8867-4) 85 /min Blood Pressure Systolic (8480-6) 103 mm[Hg] Blood Pressure Diastolic (8462-4) 78 mm[Hg] 12/07/2024 05:24 PM Temperature (8310-5) 97.7 [degF] Oxygen Saturation (71100-6) 92 % Respiratory Rate (9279-1) 20 /min Heart Rate (8867-4) 72 /min Blood Pressure Systolic (8480-6) 114 mm[Hg] Blood Pressure Diastolic (8462-4) 63 mm[Hg] 12/09/2024 07:31 AM Temperature (8310-5) 97.2 [degF] Oxygen Saturation (55564-1) 96 % Respiratory Rate (9279-1) 18 /min Heart Rate (8867-4) 62 /min Blood Pressure Systolic (8480-6) 136 mm[Hg] Blood Pressure Diastolic (8462-4) 72 mm[Hg] 12/09/2024 12:00 AM Temperature (8310-5) 98 [degF] Oxygen Saturation (39547-4) 95 % Respiratory Rate (9279-1) 16 /min Heart Rate (8867-4) 80 /min Blood Pressure Systolic (8480-6) 132 mm[Hg] Blood Pressure Diastolic (8462-4) 87 mm[Hg] 12/09/2024 10:44 PM Temperature (8310-5) 98 [degF] Oxygen Saturation (17551-5) 96 % Respiratory Rate (9279-1) 16 /min Heart Rate (8867-4) 80 /min Blood Pressure Systolic (8480-6) 134 mm[Hg] Blood Pressure Diastolic (8462-4) 80 mm[Hg] 12/10/2024 09:46 PM Temperature (8310-5) 97 [degF] Oxygen Saturation (63557-9) 95 % Respiratory Rate (9279-1) 16 /min Heart Rate (8867-4) 80 /min Blood Pressure Systolic (8480-6) 122 mm[Hg] Blood Pressure Diastolic (8462-4) 70 mm[Hg] 12/10/2024 07:05 AM Temperature (8310-5) 97.6 [degF] Oxygen Saturation (96895-9) 95 % Respiratory Rate (9279-1) 18 /min Heart Rate (8867-4) 62 /min Blood Pressure Systolic (8480-6) 118 mm[Hg] Blood Pressure Diastolic (8462-4) 72 mm[Hg] 12/11/2024 07:29 AM Temperature (8310-5) 97.2 [degF] Oxygen Saturation (80359-8) 96 % Respiratory Rate (9279-1) 18 /min Heart Rate (8867-4) 74 /min Blood Pressure Systolic (8480-6) 118 mm[Hg] Blood Pressure Diastolic (8462-4) 62 mm[Hg] 12/11/2024 10:03 PM Temperature (8310-5) 98 [degF] Oxygen Saturation (60717-3) 95 % Respiratory Rate (9279-1) 16 /min Heart Rate (8867-4) 80 /min Blood Pressure Systolic (8480-6) 132 mm[Hg] Blood Pressure Diastolic (8462-4) 80 mm[Hg] 12/12/2024 08:23 PM Temperature (8310-5) 97.1 [degF] Oxygen Saturation (59826-5) 97 % Respiratory Rate (9279-1) 18 /min Heart Rate (8867-4) 74 /min Blood Pressure Systolic (8480-6) 120 mm[Hg] Blood Pressure Diastolic (8462-4) 80 mm[Hg] 12/12/2024 09:41 AM Temperature (8310-5) 97 [degF] Oxygen Saturation (15077-8) 99 % Respiratory Rate (9279-1) 19 /min Heart Rate (8867-4) 84 /min Blood Pressure Systolic (8480-6) 102 mm[Hg] Blood Pressure Diastolic (8462-4) 73 mm[Hg] 12/13/2024 07:26 AM Temperature (8310-5) 97.1 [degF] Oxygen Saturation (99859-1) 93 % Respiratory Rate (9279-1) 17 /min Heart Rate (8867-4) 80 /min Blood Pressure Systolic (8480-6) 118 mm[Hg] Blood Pressure Diastolic (8462-4) 77 mm[Hg] 12/13/2024 06:27 PM Temperature (8310-5) 97.7 [degF] Oxygen Saturation (55999-9) 97 % Respiratory Rate (9279-1) 17 /min Heart Rate (8867-4) 80 /min Blood Pressure Systolic (8480-6) 115 mm[Hg] Blood Pressure Diastolic (8462-4) 83 mm[Hg] 12/14/2024 08:07 AM Temperature (8310-5) 97.9 [degF] Oxygen Saturation (51878-3) 95 % Respiratory Rate (9279-1) 16 /min Heart Rate (8867-4) 90 /min Blood Pressure Systolic (8480-6) 127 mm[Hg] Blood Pressure Diastolic (8462-4) 62 mm[Hg] 12/14/2024 10:11 PM Temperature (8310-5) 97.5 [degF] Oxygen Saturation (37783-3) 98 % Respiratory Rate (9279-1) 16 /min Heart Rate (8867-4) 85 /min Blood Pressure Systolic (8480-6) 131 mm[Hg] Blood Pressure Diastolic (8462-4) 66 mm[Hg] 12/15/2024 07:10 AM Temperature (8310-5) 98.1 [degF] Oxygen Saturation (99132-6) 97 % Respiratory Rate (9279-1) 18 /min Heart Rate (8867-4) 73 /min Blood Pressure Systolic (8480-6) 145 mm[Hg] Blood Pressure Diastolic (8462-4) 99 mm[Hg] 12/15/2024 09:00 PM Temperature (8310-5) 97 [degF] Oxygen Saturation (38403-6) 99 % Respiratory Rate (9279-1) 20 /min Heart Rate (8867-4) 91 /min Blood Pressure Systolic (8480-6) 118 mm[Hg] Blood Pressure Diastolic (8462-4) 80 mm[Hg] 12/16/2024 12:12 PM Temperature (8310-5) 97.3 [degF] Oxygen Saturation (78395-6) 99 % Respiratory Rate (9279-1) 21 /min Heart Rate (8867-4) 86 /min Blood Pressure Systolic (8480-6) 120 mm[Hg] Blood Pressure Diastolic (8462-4) 78 mm[Hg] 12/17/2024 08:59 AM Temperature (8310-5) 97.6 [degF] Oxygen Saturation (37015-2) 99 % Respiratory Rate (9279-1) 18 /min Heart Rate (8867-4) 66 /min Blood Pressure Systolic (8480-6) 148 mm[Hg] Blood Pressure Diastolic (8462-4) 84 mm[Hg] 12/17/2024 01:51 AM Temperature (8310-5) 97 [degF] Oxygen Saturation (72199-5) 95 % Respiratory Rate (9279-1) 16 /min Heart Rate (8867-4) 70 /min Blood Pressure Systolic (8480-6) 132 mm[Hg] Blood Pressure Diastolic (8462-4) 78 mm[Hg] 12/17/2024 07:59 PM Temperature (8310-5) 98 [degF] Oxygen Saturation (37984-5) 95 % Respiratory Rate (9279-1) 16 /min Heart Rate (8867-4) 70 /min Blood Pressure Systolic (8480-6) 122 mm[Hg] Blood Pressure Diastolic (8462-4) 80 mm[Hg] 12/18/2024 08:44 AM Temperature (8310-5) 97.5 [degF] Oxygen Saturation (14480-0) 99 % Respiratory Rate (9279-1) 14 /min Heart Rate (8867-4) 80 /min Blood Pressure Systolic (8480-6) 111 mm[Hg] Blood Pressure Diastolic (8462-4) 57 mm[Hg] 12/19/2024 05:02 AM Temperature (8310-5) 98 [degF] Oxygen Saturation (60447-6) 98 % Respiratory Rate (9279-1) 16 /min Heart Rate (8867-4) 80 /min Blood Pressure Systolic (8480-6) 120 mm[Hg] Blood Pressure Diastolic (8462-4) 78 mm[Hg] 12/19/2024 01:04 PM Temperature (8310-5) 98.2 [degF] Oxygen Saturation (63669-5) 97 % Respiratory Rate (9279-1) 20 /min Heart Rate (8867-4) 76 /min Blood Pressure Systolic (8480-6) 126 mm[Hg] Blood Pressure Diastolic (8462-4) 76 mm[Hg] 12/19/2024 08:24 PM Temperature (8310-5) 97.5 [degF] Oxygen Saturation (60706-4) 98 % Respiratory Rate (9279-1) 18 /min Heart Rate (8867-4) 82 /min Blood Pressure Systolic (8480-6) 92 mm[Hg] Blood Pressure Diastolic (8462-4) 56 mm[Hg] 12/20/2024 08:20 AM Temperature (8310-5) 97.1 [degF] Oxygen Saturation (43932-5) 97 % Respiratory Rate (9279-1) 16 /min Heart Rate (8867-4) 71 /min Blood Pressure Systolic (8480-6) 113 mm[Hg] Blood Pressure Diastolic (8462-4) 67 mm[Hg] 12/29/2024 12:26 AM Temperature (8310-5) 98.2 [degF] Oxygen Saturation (20510-4) 97 % Respiratory Rate (9279-1) 17 /min Heart Rate (8867-4) 101 /min Blood Pressure Systolic (8480-6) 127 mm[Hg] Blood Pressure Diastolic (8462-4) 84 mm[Hg] Body Weight (77057-7) 185 [lb_av] Body Mass Index (49518-1) 28.13 kg/m2 12/29/2024 06:31 AM Temperature (8310-5) 98.4 [degF] Oxygen Saturation (07108-3) 98 % Respiratory Rate (9279-1) 18 /min Heart Rate (8867-4) 96 /min Blood Pressure Systolic (8480-6) 132 mm[Hg] Blood Pressure Diastolic (8462-4) 58 mm[Hg] 12/29/2024 08:19 PM Temperature (8310-5) 98.3 [degF] Oxygen Saturation (41055-0) 95 % Respiratory Rate (9279-1) 15 /min Heart Rate (8867-4) 104 /min Blood Pressure Systolic (8480-6) 121 mm[Hg] Blood Pressure Diastolic (8462-4) 78 mm[Hg] 12/30/2024 10:28 AM Temperature (8310-5) 97.2 [degF] Oxygen Saturation (65470-9) 98 % Respiratory Rate (9279-1) 20 /min Heart Rate (8867-4) 85 /min Blood Pressure Systolic (8480-6) 113 mm[Hg] Blood Pressure Diastolic (8462-4) 62 mm[Hg] 12/30/2024 10:52 PM Heart Rate (8867-4) 78 /min 12/30/2024 10:51 PM Temperature (8310-5) 97 [degF] Oxygen Saturation (60962-0) 95 % Respiratory Rate (9279-1) 16 /min Blood Pressure Systolic (8480-6) 112 mm[Hg] Blood Pressure Diastolic (8462-4) 80 mm[Hg] 12/31/2024 03:52 PM Temperature (8310-5) 98 [degF] Oxygen Saturation (58708-9) 96 % Respiratory Rate (9279-1) 20 /min Heart Rate (8867-4) 109 /min Blood Pressure Systolic (8480-6) 90 mm[Hg] Blood Pressure Diastolic (8462-4) 71 mm[Hg] 12/31/2024 01:40 PM Body Weight (22327-3) 186 [lb_av] Body Mass Index (16681-8) 28.28 kg/m2 12/31/2024 08:46 PM Temperature (8310-5) 98 [degF] Oxygen Saturation (26615-5) 95 % Respiratory Rate (9279-1) 18 /min Heart Rate (8867-4) 70 /min Blood Pressure Systolic (8480-6) 114 mm[Hg] Blood Pressure Diastolic (8462-4) 80 mm[Hg] 01/01/2025 10:36 AM Temperature (8310-5) 97.8 [degF] Oxygen Saturation (54206-5) 97 % Respiratory Rate (9279-1) 19 /min Heart Rate (8867-4) 95 /min Blood Pressure Systolic (8480-6) 111 mm[Hg] Blood Pressure Diastolic (8462-4) 70 mm[Hg] 01/01/2025 07:41 PM Temperature (8310-5) 98 [degF] Oxygen Saturation (42672-0) 95 % Respiratory Rate (9279-1) 16 /min Heart Rate (8867-4) 88 /min Blood Pressure Systolic (8480-6) 122 mm[Hg] Blood Pressure Diastolic (8462-4) 80 mm[Hg] 01/02/2025 12:59 PM Oxygen Saturation (66789-3) 97 % 01/02/2025 12:57 PM Temperature (8310-5) 97.3 [degF] Respiratory Rate (9279-1) 16 /min Heart Rate (8867-4) 96 /min Blood Pressure Systolic (8480-6) 90 mm[Hg] Blood Pressure Diastolic (8462-4) 60 mm[Hg] 01/02/2025 07:07 PM Temperature (8310-5) 98.6 [degF] Oxygen Saturation (78743-0) 98 % Respiratory Rate (9279-1) 16 /min Heart Rate (8867-4) 111 /min Blood Pressure Systolic (8480-6) 114 mm[Hg] Blood Pressure Diastolic (8462-4) 64 mm[Hg] 01/03/2025 06:28 AM Temperature (8310-5) 97.7 [degF] Oxygen Saturation (50231-9) 96 % Respiratory Rate (9279-1) 19 /min Heart Rate (8867-4) 111 /min Blood Pressure Systolic (8480-6) 116 mm[Hg] Blood Pressure Diastolic (8462-4) 88 mm[Hg] 01/03/2025 11:35 AM Body Weight (01842-9) 182.4 [lb_av ] Body Mass Index (57033-4) 27.73 kg/m2 01/04/2025 12:10 AM Temperature (8310-5) 97.6 [degF] Oxygen Saturation (04326-8) 97 % Respiratory Rate (9279-1) 15 /min Heart Rate (8867-4) 114 /min Blood Pressure Systolic (8480-6) 121 mm[Hg] Blood Pressure Diastolic (8462-4) 82 mm[Hg] 01/04/2025 09:26 AM Temperature (8310-5) 97.3 [degF] Oxygen Saturation (83868-1) 100 % Respiratory Rate (9279-1) 18 /min Heart Rate (8867-4) 84 /min Blood Pressure Systolic (8480-6) 115 mm[Hg] Blood Pressure Diastolic (8462-4) 71 mm[Hg] 01/04/2025 11:29 PM Temperature (8310-5) 98.1 [degF] Oxygen Saturation (51037-7) 96 % Respiratory Rate (9279-1) 14 /min Heart Rate (8867-4) 87 /min Blood Pressure Systolic (8480-6) 118 mm[Hg] Blood Pressure Diastolic (8462-4) 70 mm[Hg] 01/05/2025 06:32 AM Temperature (8310-5) 98.6 [degF] Oxygen Saturation (74544-5) 95 % Respiratory Rate (9279-1) 19 /min Heart Rate (8867-4) 72 /min Blood Pressure Systolic (8480-6) 122 mm[Hg] Blood Pressure Diastolic (8462-4) 66 mm[Hg] 01/06/2025 12:39 AM Temperature (8310-5) 98.6 [degF] Oxygen Saturation (42868-2) 97 % Respiratory Rate (9279-1) 18 /min Heart Rate (8867-4) 88 /min Blood Pressure Systolic (8480-6) 110 mm[Hg] Blood Pressure Diastolic (8462-4) 69 mm[Hg] 01/06/2025 06:50 AM Temperature (8310-5) 98.2 [degF] Oxygen Saturation (75704-6) 98 % Respiratory Rate (9279-1) 16 /min Heart Rate (8867-4) 80 /min Blood Pressure Systolic (8480-6) 118 mm[Hg] Blood Pressure Diastolic (8462-4) 58 mm[Hg] 01/07/2025 11:02 AM Temperature (8310-5) 98 [degF] Oxygen Saturation (23970-0) 97 % Respiratory Rate (9279-1) 18 /min Heart Rate (8867-4) 65 /min Blood Pressure Systolic (8480-6) 128 mm[Hg] Blood Pressure Diastolic (8462-4) 60 mm[Hg] 01/07/2025 09:35 PM Temperature (8310-5) 98 [degF] Oxygen Saturation (70609-7) 95 % Respiratory Rate (9279-1) 16 /min Heart Rate (8867-4) 78 /min Blood Pressure Systolic (8480-6) 120 mm[Hg] Blood Pressure Diastolic (8462-4) 78 mm[Hg] 01/08/2025 06:38 AM Temperature (8310-5) 98.2 [degF] Oxygen Saturation (76414-8) 96 % Respiratory Rate (9279-1) 18 /min Heart Rate (8867-4) 88 /min Blood Pressure Systolic (8480-6) 132 mm[Hg] Blood Pressure Diastolic (8462-4) 72 mm[Hg] 01/08/2025 08:53 PM Temperature (8310-5) 97 [degF] Oxygen Saturation (60784-0) 95 % Respiratory Rate (9279-1) 16 /min Heart Rate (8867-4) 88 /min Blood Pressure Systolic (8480-6) 132 mm[Hg] Blood Pressure Diastolic (8462-4) 70 mm[Hg] 01/09/2025 10:35 PM Temperature (8310-5) 98.6 [degF] Oxygen Saturation (00832-5) 96 % Respiratory Rate (9279-1) 20 /min Heart Rate (8867-4) 77 /min Blood Pressure Systolic (8480-6) 92 mm[Hg] Blood Pressure Diastolic (8462-4) 71 mm[Hg] 01/09/2025 06:26 PM Temperature (8310-5) 98 [degF] Oxygen Saturation (41480-1) 95 % Respiratory Rate (9279-1) 18 /min Heart Rate (8867-4) 94 /min Blood Pressure Systolic (8480-6) 117 mm[Hg] Blood Pressure Diastolic (8462-4) 89 mm[Hg] 01/10/2025 06:31 AM Temperature (8310-5) 98 [degF] Oxygen Saturation (63510-0) 97 % Respiratory Rate (9279-1) 16 /min Heart Rate (8867-4) 68 /min Blood Pressure Systolic (8480-6) 112 mm[Hg] Blood Pressure Diastolic (8462-4) 68 mm[Hg] 01/10/2025 10:10 PM Temperature (8310-5) 98.1 [degF] Oxygen Saturation (84679-4) 96 % Respiratory Rate (9279-1) 16 /min Heart Rate (8867-4) 75 /min Blood Pressure Systolic (8480-6) 98 mm[Hg] Blood Pressure Diastolic (8462-4) 63 mm[Hg] 01/11/2025 06:36 AM Temperature (8310-5) 97.4 [degF] Oxygen Saturation (25845-6) 97 % Respiratory Rate (9279-1) 19 /min Heart Rate (8867-4) 83 /min Blood Pressure Systolic (8480-6) 120 mm[Hg] Blood Pressure Diastolic (8462-4) 73 mm[Hg] 01/11/2025 08:44 PM Temperature (8310-5) 98.2 [degF] Oxygen Saturation (23482-3) 98 % Respiratory Rate (9279-1) 15 /min Heart Rate (8867-4) 76 /min Blood Pressure Systolic (8480-6) 110 mm[Hg] Blood Pressure Diastolic (8462-4) 62 mm[Hg] 01/12/2025 06:27 AM Temperature (8310-5) 98 [degF] Oxygen Saturation (51329-7) 96 % Respiratory Rate (9279-1) 18 /min Heart Rate (8867-4) 80 /min Blood Pressure Systolic (8480-6) 118 mm[Hg] Blood Pressure Diastolic (8462-4) 66 mm[Hg] 01/12/2025 08:41 PM Temperature (8310-5) 98.2 [degF] Oxygen Saturation (35392-2) 97 % Respiratory Rate (9279-1) 18 /min Heart Rate (8867-4) 95 /min Blood Pressure Systolic (8480-6) 117 mm[Hg] Blood Pressure Diastolic (8462-4) 77 mm[Hg] 01/14/2025 07:48 AM Temperature (8310-5) 97.3 [degF] Oxygen Saturation (73520-1) 96 % Respiratory Rate (9279-1) 19 /min Heart Rate (8867-4) 74 /min Blood Pressure Systolic (8480-6) 111 mm[Hg] Blood Pressure Diastolic (8462-4) 60 mm[Hg] 01/14/2025 02:18 AM Temperature (8310-5) 97 [degF] Oxygen Saturation (91816-6) 96 % Respiratory Rate (9279-1) 16 /min Heart Rate (8867-4) 80 /min Blood Pressure Systolic (8480-6) 132 mm[Hg] Blood Pressure Diastolic (8462-4) 80 mm[Hg] 01/14/2025 09:43 PM Temperature (8310-5) 98 [degF] Oxygen Saturation (13829-3) 95 % Respiratory Rate (9279-1) 16 /min Heart Rate (8867-4) 80 /min Blood Pressure Systolic (8480-6) 124 mm[Hg] Blood Pressure Diastolic (8462-4) 78 mm[Hg] 01/15/2025 07:52 AM Temperature (8310-5) 97.7 [degF] Oxygen Saturation (60465-4) 95 % Respiratory Rate (9279-1) 18 /min Heart Rate (8867-4) 90 /min Blood Pressure Systolic (8480-6) 134 mm[Hg] Blood Pressure Diastolic (8462-4) 70 mm[Hg] 01/15/2025 08:59 PM Temperature (8310-5) 97 [degF] Oxygen Saturation (99586-3) 96 % Respiratory Rate (9279-1) 18 /min Heart Rate (8867-4) 88 /min Blood Pressure Systolic (8480-6) 120 mm[Hg] Blood Pressure Diastolic (8462-4) 78 mm[Hg] 01/16/2025 01:34 PM Temperature (8310-5) 97.1 [degF] Oxygen Saturation (21972-1) 96 % Respiratory Rate (9279-1) 16 /min Heart Rate (8867-4) 77 /min Blood Pressure Systolic (8480-6) 140 mm[Hg] Blood Pressure Diastolic (8462-4) 71 mm[Hg] 01/16/2025 11:40 PM Temperature (8310-5) 98.1 [degF] Oxygen Saturation (14010-2) 94 % Respiratory Rate (9279-1) 15 /min Heart Rate (8867-4) 74 /min Blood Pressure Systolic (8480-6) 107 mm[Hg] Blood Pressure Diastolic (8462-4) 66 mm[Hg] 01/17/2025 10:22 AM Temperature (8310-5) 97.7 [degF] Oxygen Saturation (70321-2) 99 % Respiratory Rate (9279-1) 18 /min Heart Rate (8867-4) 90 /min Blood Pressure Systolic (8480-6) 129 mm[Hg] Blood Pressure Diastolic (8462-4) 87 mm[Hg] 01/18/2025 02:50 AM Temperature (8310-5) 96.8 [degF] Oxygen Saturation (74654-0) 95 % Respiratory Rate (9279-1) 16 /min Heart Rate (8867-4) 90 /min Blood Pressure Systolic (8480-6) 120 mm[Hg] Blood Pressure Diastolic (8462-4) 59 mm[Hg] 01/18/2025 01:05 PM Temperature (8310-5) 97 [degF] Oxygen Saturation (26437-6) 98 % Respiratory Rate (9279-1) 16 /min Heart Rate (8867-4) 86 /min Blood Pressure Systolic (8480-6) 98 mm[Hg] Blood Pressure Diastolic (8462-4) 61 mm[Hg] 01/18/2025 10:57 PM Temperature (8310-5) 97.8 [degF] Oxygen Saturation (18323-4) 90 % Respiratory Rate (9279-1) 17 /min Heart Rate (8867-4) 57 /min Blood Pressure Systolic (8480-6) 103 mm[Hg] Blood Pressure Diastolic (8462-4) 89 mm[Hg] 01/19/2025 06:34 AM Temperature (8310-5) 97.9 [degF] Oxygen Saturation (50033-1) 95 % Respiratory Rate (9279-1) 18 /min Heart Rate (8867-4) 68 /min Blood Pressure Systolic (8480-6) 116 mm[Hg] Blood Pressure Diastolic (8462-4) 61 mm[Hg] 01/19/2025 11:39 PM Temperature (8310-5) 98 [degF] Oxygen Saturation (05306-4) 95 % Respiratory Rate (9279-1) 18 /min Heart Rate (8867-4) 78 /min Blood Pressure Systolic (8480-6) 122 mm[Hg] Blood Pressure Diastolic (8462-4) 88 mm[Hg] 01/20/2025 06:39 AM Temperature (8310-5) 97.5 [degF] Oxygen Saturation (80151-4) 94 % Respiratory Rate (9279-1) 16 /min Heart Rate (8867-4) 66 /min Blood Pressure Systolic (8480-6) 132 mm[Hg] Blood Pressure Diastolic (8462-4) 64 mm[Hg] 01/20/2025 08:18 PM Temperature (8310-5) 98 [degF] Oxygen Saturation (28057-9) 96 % Respiratory Rate (9279-1) 16 /min Heart Rate (8867-4) 70 /min Blood Pressure Systolic (8480-6) 114 mm[Hg] Blood Pressure Diastolic (8462-4) 80 mm[Hg] 01/21/2025 09:27 AM Temperature (8310-5) 97.9 [degF] Oxygen Saturation (64638-5) 100 % Respiratory Rate (9279-1) 20 /min Heart Rate (8867-4) 79 /min Blood Pressure Systolic (8480-6) 109 mm[Hg] Blood Pressure Diastolic (8462-4) 58 mm[Hg] 01/21/2025 08:29 PM Temperature (8310-5) 98.2 [degF] Oxygen Saturation (75896-6) 95 % Respiratory Rate (9279-1) 16 /min Heart Rate (8867-4) 70 /min Blood Pressure Systolic (8480-6) 132 mm[Hg] Blood Pressure Diastolic (8462-4) 80 mm[Hg] 01/22/2025 09:20 AM Temperature (8310-5) 98 [degF] Oxygen Saturation (70913-9) 96 % Respiratory Rate (9279-1) 18 /min Heart Rate (8867-4) 85 /min Blood Pressure Systolic (8480-6) 176 mm[Hg] Blood Pressure Diastolic (8462-4) 85 mm[Hg] 01/22/2025 08:43 PM Temperature (8310-5) 97 [degF] Oxygen Saturation (88936-2) 95 % Respiratory Rate (9279-1) 16 /min Heart Rate (8867-4) 68 /min Blood Pressure Systolic (8480-6) 126 mm[Hg] Blood Pressure Diastolic (8462-4) 80 mm[Hg] 01/23/2025 09:40 AM Temperature (8310-5) 97.8 [degF] Oxygen Saturation (53318-2) 99 % Respiratory Rate (9279-1) 18 /min Heart Rate (8867-4) 76 /min Blood Pressure Systolic (8480-6) 116 mm[Hg] Blood Pressure Diastolic (8462-4) 68 mm[Hg] 01/23/2025 08:02 PM Temperature (8310-5) 97.6 [degF] Oxygen Saturation (50254-8) 98 % Respiratory Rate (9279-1) 18 /min Heart Rate (8867-4) 71 /min Blood Pressure Systolic (8480-6) 151 mm[Hg] Blood Pressure Diastolic (8462-4) 105 mm[Hg] 01/24/2025 07:03 AM Temperature (8310-5) 98 [degF] Oxygen Saturation (67859-1) 97 % Respiratory Rate (9279-1) 16 /min Heart Rate (8867-4) 70 /min Blood Pressure Systolic (8480-6) 132 mm[Hg] Blood Pressure Diastolic (8462-4) 66 mm[Hg] 01/24/2025 07:58 PM Temperature (8310-5) 98.3 [degF] Oxygen Saturation (65992-1) 97 % Respiratory Rate (9279-1) 15 /min Heart Rate (8867-4) 74 /min Blood Pressure Systolic (8480-6) 138 mm[Hg] Blood Pressure Diastolic (8462-4) 93 mm[Hg] 01/25/2025 06:28 AM Temperature (8310-5) 98 [degF] Oxygen Saturation (45214-5) 97 % Respiratory Rate (9279-1) 17 /min Heart Rate (8867-4) 65 /min Blood Pressure Systolic (8480-6) 141 mm[Hg] Blood Pressure Diastolic (8462-4) 85 mm[Hg] 01/25/2025 01:45 PM Body Weight (82889-4) 179.6 [lb_av ] Body Mass Index (69386-0) 27.31 kg/m2 01/25/2025 09:52 PM Temperature (8310-5) 98.3 [degF] Oxygen Saturation (53735-9) 97 % Respiratory Rate (9279-1) 15 /min Heart Rate (8867-4) 77 /min Blood Pressure Systolic (8480-6) 93 mm[Hg] Blood Pressure Diastolic (8462-4) 55 mm[Hg] 01/26/2025 06:34 AM Temperature (8310-5) 98 [degF] Oxygen Saturation (07870-5) 95 % Respiratory Rate (9279-1) 16 /min Heart Rate (8867-4) 70 /min Blood Pressure Systolic (8480-6) 118 mm[Hg] Blood Pressure Diastolic (8462-4) 62 mm[Hg] 01/27/2025 03:23 AM Temperature (8310-5) 97.8 [degF] Oxygen Saturation (27022-4) 94 % Respiratory Rate (9279-1) 18 /min Heart Rate (8867-4) 73 /min Blood Pressure Systolic (8480-6) 120 mm[Hg] Blood Pressure Diastolic (8462-4) 69 mm[Hg] 01/27/2025 09:14 AM Temperature (8310-5) 98.2 [degF] Oxygen Saturation (71748-4) 99 % Respiratory Rate (9279-1) 18 /min Heart Rate (8867-4) 78 /min Blood Pressure Systolic (8480-6) 105 mm[Hg] Blood Pressure Diastolic (8462-4) 60 mm[Hg] 01/27/2025 09:08 PM Temperature (8310-5) 98 [degF] Oxygen Saturation (05531-1) 95 % Respiratory Rate (9279-1) 18 /min Heart Rate (8867-4) 88 /min Blood Pressure Systolic (8480-6) 132 mm[Hg] Blood Pressure Diastolic (8462-4) 78 mm[Hg] 01/28/2025 11:34 AM Temperature (8310-5) 97.7 [degF] Oxygen Saturation (98950-6) 92 % Respiratory Rate (9279-1) 16 /min Heart Rate (8867-4) 70 /min Blood Pressure Systolic (8480-6) 109 mm[Hg] Blood Pressure Diastolic (8462-4) 55 mm[Hg] 01/28/2025 10:17 PM Temperature (8310-5) 97 [degF] Oxygen Saturation (52865-3) 95 % Respiratory Rate (9279-1) 16 /min Heart Rate (8867-4) 88 /min Blood Pressure Systolic (8480-6) 132 mm[Hg] Blood Pressure Diastolic (8462-4) 88 mm[Hg] 01/29/2025 10:28 AM Temperature (8310-5) 97.6 [degF] Oxygen Saturation (67739-5) 94 % Respiratory Rate (9279-1) 22 /min Heart Rate (8867-4) 62 /min Blood Pressure Systolic (8480-6) 122 mm[Hg] Blood Pressure Diastolic (8462-4) 67 mm[Hg] 01/29/2025 08:55 PM Temperature (8310-5) 98 [degF] Oxygen Saturation (61848-8) 96 % Respiratory Rate (9279-1) 18 /min Heart Rate (8867-4) 80 /min Blood Pressure Systolic (8480-6) 132 mm[Hg] Blood Pressure Diastolic (8462-4) 88 mm[Hg] 01/30/2025 10:00 AM Temperature (8310-5) 96.8 [degF] Oxygen Saturation (95085-8) 99 % Respiratory Rate (9279-1) 20 /min Heart Rate (8867-4) 64 /min Blood Pressure Systolic (8480-6) 100 mm[Hg] Blood Pressure Diastolic (8462-4) 68 mm[Hg] 01/31/2025 01:20 AM Temperature (8310-5) 97 [degF] Oxygen Saturation (94486-1) 98 % Respiratory Rate (9279-1) 15 /min Heart Rate (8867-4) 85 /min Blood Pressure Systolic (8480-6) 123 mm[Hg] Blood Pressure Diastolic (8462-4) 62 mm[Hg] 01/31/2025 05:21 PM Temperature (8310-5) 98 [degF] Oxygen Saturation (43018-2) 96 % Respiratory Rate (9279-1) 16 /min Heart Rate (8867-4) 73 /min Blood Pressure Systolic (8480-6) 129 mm[Hg] Blood Pressure Diastolic (8462-4) 68 mm[Hg] 02/01/2025 04:22 AM Respiratory Rate (9279-1) 17 /min Blood Pressure Systolic (8480-6) 128 mm[Hg] Blood Pressure Diastolic (8462-4) 72 mm[Hg] 02/01/2025 04:17 AM Temperature (8310-5) 96.8 [degF] 02/01/2025 05:47 AM Temperature (8310-5) 97 [degF] Oxygen Saturation (73172-1) 96 % Respiratory Rate (9279-1) 18 /min Heart Rate (8867-4) 63 /min Blood Pressure Systolic (8480-6) 115 mm[Hg] Blood Pressure Diastolic (8462-4) 69 mm[Hg] 02/01/2025 04:23 AM Oxygen Saturation (85105-0) 98 % 02/01/2025 04:21 AM Heart Rate (8867-4) 65 /min 02/01/2025 09:44 PM Temperature (8310-5) 97.3 [degF] Heart Rate (8867-4) 65 /min 02/01/2025 09:48 PM Oxygen Saturation (36749-8) 97 % 02/01/2025 09:45 PM Respiratory Rate (9279-1) 17 /min 02/01/2025 09:46 PM Blood Pressure Systolic (8480-6) 1 18 mm[Hg] Blood Pressure Diastolic (8462-4) 67 mm[Hg] 02/02/2025 07:18 AM Body Weight (64603-5) 184.8 [lb_av ] Body Mass Index (20509-3) 28.1 kg/m2 02/02/2025 06:23 AM Temperature (8310-5) 98 [degF] Oxygen Saturation (83439-6) 97 % Respiratory Rate (9279-1) 18 /min Heart Rate (8867-4) 60 /min Blood Pressure Systolic (8480-6) 120 mm[Hg] Blood Pressure Diastolic (8462-4) 62 mm[Hg] 02/02/2025 08:06 PM Temperature (8310-5) 98.3 [degF] Oxygen Saturation (65149-4) 94 % Respiratory Rate (9279-1) 20 /min Heart Rate (8867-4) 62 /min Blood Pressure Systolic (8480-6) 107 mm[Hg] Blood Pressure Diastolic (8462-4) 56 mm[Hg] 02/03/2025 06:12 AM Temperature (8310-5) 98 [degF] Oxygen Saturation (46900-5) 96 % Respiratory Rate (9279-1) 16 /min Heart Rate (8867-4) 66 /min Blood Pressure Systolic (8480-6) 118 mm[Hg] Blood Pressure Diastolic (8462-4) 66 mm[Hg] 02/03/2025 07:26 PM Temperature (8310-5) 98.1 [degF] Oxygen Saturation (76604-4) 95 % Respiratory Rate (9279-1) 14 /min Heart Rate (8867-4) 66 /min Blood Pressure Systolic (8480-6) 112 mm[Hg] Blood Pressure Diastolic (8462-4) 62 mm[Hg] 02/04/2025 06:48 AM Temperature (8310-5) 98.2 [degF] Oxygen Saturation (45297-1) 96 % Respiratory Rate (9279-1) 16 /min Heart Rate (8867-4) 70 /min Blood Pressure Systolic (8480-6) 120 mm[Hg] Blood Pressure Diastolic (8462-4) 68 mm[Hg] 02/04/2025 07:54 PM Temperature (8310-5) 97.1 [degF] Oxygen Saturation (86445-6) 98 % Respiratory Rate (9279-1) 18 /min Heart Rate (8867-4) 62 /min Blood Pressure Systolic (8480-6) 135 mm[Hg] Blood Pressure Diastolic (8462-4) 77 mm[Hg] 02/05/2025 06:25 AM Temperature (8310-5) 97.5 [degF] Oxygen Saturation (65367-2) 94 % Respiratory Rate (9279-1) 16 /min Heart Rate (8867-4) 66 /min Blood Pressure Systolic (8480-6) 120 mm[Hg] Blood Pressure Diastolic (8462-4) 68 mm[Hg] 02/05/2025 08:01 PM Temperature (8310-5) 96.8 [degF] Oxygen Saturation (51361-7) 97 % Respiratory Rate (9279-1) 16 /min Heart Rate (8867-4) 70 /min Blood Pressure Systolic (8480-6) 98 mm[Hg] Blood Pressure Diastolic (8462-4) 61 mm[Hg] 02/06/2025 05:11 PM Temperature (8310-5) 97.1 [degF] Oxygen Saturation (79166-2) 97 % Respiratory Rate (9279-1) 19 /min Heart Rate (8867-4) 70 /min Blood Pressure Systolic (8480-6) 106 mm[Hg] Blood Pressure Diastolic (8462-4) 66 mm[Hg] 04/04/2025 11:32 AM Body Weight (02677-9) 179.4 [lb_av ] Body Mass Index (47306-6) 27.27 kg/m2 06/04/2025 06:28 AM Temperature (8310-5) 98 [degF] Oxygen Saturation (87385-3) 98 % Respiratory Rate (9279-1) 16 /min Heart Rate (8867-4) 84 /min Blood Pressure Systolic (8480-6) 130 mm[Hg] Blood Pressure Diastolic (8462-4) 72 mm[Hg] 03/22/2025 12:49 PM Body Weight (37153-0) 176.3 [lb_av ] Body Mass Index (87575-6) 26.8 kg/m2 05/28/2025 06:58 AM Temperature (8310-5) 98.5 [degF] Oxygen Saturation (70426-9) 97 % Respiratory Rate (9279-1) 15 /min Heart Rate (8867-4) 70 /min Blood Pressure Systolic (8480-6) 125 mm[Hg] Blood Pressure Diastolic (8462-4) 62 mm[Hg] 06/05/2025 06:32 AM Temperature (8310-5) 96 [degF] 06/02/2025 08:17 AM Temperature (8310-5) 97.9 [degF] Oxygen Saturation (23705-6) 98 % Respiratory Rate (9279-1) 18 /min Heart Rate (8867-4) 81 /min Blood Pressure Systolic (8480-6) 131 mm[Hg] Blood Pressure Diastolic (8462-4) 77 mm[Hg] 04/05/2025 01:37 PM Body Weight (59668-1) 180 [lb_av] Body Mass Index (79906-1) 27.37 kg/m2 05/29/2025 03:50 PM Temperature (8310-5) 97.3 [degF] Oxygen Saturation (91479-2) 98 % Respiratory Rate (9279-1) 16 /min Heart Rate (8867-4) 70 /min Blood Pressure Systolic (8480-6) 156 mm[Hg] Blood Pressure Diastolic (8462-4) 66 mm[Hg] 06/03/2025 07:09 PM Temperature (8310-5) 97.6 [degF] 05/30/2025 06:31 AM Temperature (8310-5) 98 [degF] Oxygen Saturation (52559-9) 97 % Respiratory Rate (9279-1) 19 /min Heart Rate (8867-4) 77 /min Blood Pressure Systolic (8480-6) 135 mm[Hg] Blood Pressure Diastolic (8462-4) 72 mm[Hg] 06/05/2025 06:51 AM Oxygen Saturation (05425-0) 99 % Respiratory Rate (9279-1) 16 /min Heart Rate (8867-4) 83 /min Blood Pressure Systolic (8480-6) 122 mm[Hg] Blood Pressure Diastolic (8462-4) 71 mm[Hg] 03/29/2025 08:53 AM Body Weight (01171-4) 176.8 [lb_av ] Body Mass Index (40295-0) 26.88 kg/m2 03/16/2025 02:05 PM Body Weight (38956-3) 177.8 [lb_av ] Body Mass Index (07581-2) 27.03 kg/m2 05/31/2025 10:47 AM Temperature (8310-5) 98.6 [degF] Oxygen Saturation (71784-2) 98 % Respiratory Rate (9279-1) 16 /min Blood Pressure Systolic (8480-6) 132 mm[Hg] Blood Pressure Diastolic (8462-4) 69 mm[Hg] 03/09/2025 09:05 AM Body Weight (65910-5) 176 [lb_av] Body Mass Index (47189-2) 26.76 kg/m2 03/08/2025 02:25 PM Body Weight (57379-3) 176.2 [lb_av ] Body Mass Index (68965-5) 26.79 kg/m2 06/03/2025 09:24 AM Temperature (8310-5) 97.8 [degF] Oxygen Saturation (59156-3) 96 % Respiratory Rate (9279-1) 18 /min Heart Rate (8867-4) 79 /min Blood Pressure Systolic (8480-6) 142 mm[Hg] Blood Pressure Diastolic (8462-4) 68 mm[Hg] 05/27/2025 06:27 AM Oxygen Saturation (44164-1) 96 % Respiratory Rate (9279-1) 16 /min Heart Rate (8867-4) 75 /min Blood Pressure Systolic (8480-6) 120 mm[Hg] Blood Pressure Diastolic (8462-4) 58 mm[Hg] 05/05/2025 10:44 AM Body Weight (09860-0) 180.2 [lb_av ] Body Mass Index (67781-3) 27.4 kg/m2 06/01/2025 06:36 AM Temperature (8310-5) 98 [degF] Oxygen Saturation (06699-1) 99 % Respiratory Rate (9279-1) 16 /min Heart Rate (8867-4) 72 /min Blood Pressure Systolic (8480-6) 129 mm[Hg] Blood Pressure Diastolic (8462-4) 74 mm[Hg] 05/31/2025 06:29 AM Heart Rate (8867-4) 64 /min 03/14/2025 04:47 AM Body Weight (53231-6) 177.4 [lb_av ] Body Mass Index (68197-8) 26.97 kg/m2 06/05/2025 06:52 AM Body Weight (50088-5) 179 [lb_av] Body Mass Index (08961-0) 27.21 kg/m2 06/15/2025 05:13 AM Body Weight (10766-8) 175.6 [lb_av ] Body Mass Index (31634-3) 26.7 kg/m2 06/15/2025 06:40 AM Temperature (8310-5) 98 [degF] Oxygen Saturation (87947-4) 98 % Respiratory Rate (9279-1) 16 /min Heart Rate (8867-4) 75 /min Blood Pressure Systolic (8480-6) 118 mm[Hg] Blood Pressure Diastolic (8462-4) 52 mm[Hg] 06/16/2025 06:41 AM Temperature (8310-5) 98.2 [degF] Oxygen Saturation (74150-4) 97 % Respiratory Rate (9279-1) 18 /min Heart Rate (8867-4) 70 /min Blood Pressure Systolic (8480-6) 122 mm[Hg] Blood Pressure Diastolic (8462-4) 69 mm[Hg] 06/17/2025 01:44 PM Temperature (8310-5) 98.7 [degF] Oxygen Saturation (55695-5) 96 % Respiratory Rate (9279-1) 20 /min Heart Rate (8867-4) 64 /min Blood Pressure Systolic (8480-6) 140 mm[Hg] Blood Pressure Diastolic (8462-4) 61 mm[Hg] 06/18/2025 03:06 PM Temperature (8310-5) 98.5 [degF] Oxygen Saturation (40485-2) 94 % Respiratory Rate (9279-1) 17 /min Heart Rate (8867-4) 60 /min Blood Pressure Systolic (8480-6) 102 mm[Hg] Blood Pressure Diastolic (8462-4) 60 mm[Hg] 06/19/2025 09:33 AM Temperature (8310-5) 98.3 [degF] Oxygen Saturation (72791-7) 96 % Respiratory Rate (9279-1) 20 /min Heart Rate (8867-4) 71 /min Blood Pressure Systolic (8480-6) 173 mm[Hg] Blood Pressure Diastolic (8462-4) 57 mm[Hg] 06/20/2025 09:12 AM Temperature (8310-5) 98.7 [degF] Oxygen Saturation (71772-2) 98 % Respiratory Rate (9279-1) 20 /min Heart Rate (8867-4) 76 /min Blood Pressure Systolic (8480-6) 144 mm[Hg] Blood Pressure Diastolic (8462-4) 81 mm[Hg] 06/21/2025 12:25 PM Temperature (8310-5) 97.6 [degF] Oxygen Saturation (03381-2) 96 % Respiratory Rate (9279-1) 18 /min Heart Rate (8867-4) 72 /min Blood Pressure Systolic (8480-6) 134 mm[Hg] Blood Pressure Diastolic (8462-4) 78 mm[Hg] 06/22/2025 06:26 AM Temperature (8310-5) 98 [degF] Oxygen Saturation (93160-8) 97 % Respiratory Rate (9279-1) 16 /min Heart Rate (8867-4) 77 /min Blood Pressure Systolic (8480-6) 132 mm[Hg] Blood Pressure Diastolic (8462-4) 66 mm[Hg] 06/23/2025 06:23 AM Temperature (8310-5) 98.6 [degF] Oxygen Saturation (99504-7) 98 % Respiratory Rate (9279-1) 18 /min Heart Rate (8867-4) 66 /min Blood Pressure Systolic (8480-6) 126 mm[Hg] Blood Pressure Diastolic (8462-4) 68 mm[Hg] 06/24/2025 06:23 AM Temperature (8310-5) 98 [degF] Oxygen Saturation (80986-5) 99 % Respiratory Rate (9279-1) 16 /min Heart Rate (8867-4) 75 /min Blood Pressure Systolic (8480-6) 126 mm[Hg] Blood Pressure Diastolic (8462-4) 74 mm[Hg] 06/25/2025 06:32 AM Temperature (8310-5) 98.2 [degF] Oxygen Saturation (23443-8) 98 % Respiratory Rate (9279-1) 18 /min Heart Rate (8867-4) 77 /min Blood Pressure Systolic (8480-6) 120 mm[Hg] Blood Pressure Diastolic (8462-4) 66 mm[Hg] 06/26/2025 02:22 PM Temperature (8310-5) 97.7 [degF] Oxygen Saturation (85563-0) 97 % Respiratory Rate (9279-1) 20 /min Heart Rate (8867-4) 70 /min Blood Pressure Systolic (8480-6) 117 mm[Hg] Blood Pressure Diastolic (8462-4) 69 mm[Hg] 06/27/2025 07:23 AM Temperature (8310-5) 98.3 [degF] Oxygen Saturation (42779-7) 98 % Respiratory Rate (9279-1) 16 /min Heart Rate (8867-4) 78 /min Blood Pressure Systolic (8480-6) 126 mm[Hg] Blood Pressure Diastolic (8462-4) 70 mm[Hg] 06/28/2025 07:43 AM Temperature (8310-5) 98.2 [degF] Oxygen Saturation (45027-5) 94 % Respiratory Rate (9279-1) 20 /min Heart Rate (8867-4) 76 /min Blood Pressure Systolic (8480-6) 118 mm[Hg] Blood Pressure Diastolic (8462-4) 72 mm[Hg] 06/29/2025 06:40 AM Temperature (8310-5) 98.1 [degF] Oxygen Saturation (93816-8) 98 % Respiratory Rate (9279-1) 15 /min Heart Rate (8867-4) 63 /min Blood Pressure Systolic (8480-6) 136 mm[Hg] Blood Pressure Diastolic (8462-4) 79 mm[Hg] 06/30/2025 06:28 AM Temperature (8310-5) 97.7 [degF] Oxygen Saturation (30008-7) 98 % Respiratory Rate (9279-1) 16 /min Heart Rate (8867-4) 63 /min Blood Pressure Systolic (8480-6) 130 mm[Hg] Blood Pressure Diastolic (8462-4) 68 mm[Hg] 07/01/2025 07:09 AM Temperature (8310-5) 97.2 [degF] Oxygen Saturation (91634-8) 99 % Respiratory Rate (9279-1) 20 /min Heart Rate (8867-4) 73 /min Blood Pressure Systolic (8480-6) 136 mm[Hg] Blood Pressure Diastolic (8462-4) 77 mm[Hg] 07/01/2025 12:50 PM Temperature (8310-5) 97.5 [degF] 07/01/2025 06:08 PM Temperature (8310-5) 98.6 [degF] 07/02/2025 04:02 PM Temperature (8310-5) 98.1 [degF] 07/02/2025 09:41 AM Temperature (8310-5) 98.2 [degF] Oxygen Saturation (88068-0) 97 % Respiratory Rate (9279-1) 20 /min Heart Rate (8867-4) 63 /min Blood Pressure Systolic (8480-6) 134 mm[Hg] Blood Pressure Diastolic (8462-4) 77 mm[Hg] 07/03/2025 06:52 AM Temperature (8310-5) 98.2 [degF] Oxygen Saturation (17311-7) 98 % Respiratory Rate (9279-1) 16 /min Heart Rate (8867-4) 72 /min Blood Pressure Systolic (8480-6) 120 mm[Hg] Blood Pressure Diastolic (8462-4) 69 mm[Hg] 07/04/2025 08:46 AM Temperature (8310-5) 98.1 [degF] Oxygen Saturation (33371-1) 98 % Respiratory Rate (9279-1) 17 /min Heart Rate (8867-4) 63 /min Blood Pressure Systolic (8480-6) 112 mm[Hg] Blood Pressure Diastolic (8462-4) 70 mm[Hg] 07/05/2025 11:12 AM Body Weight (37973-1) 176 [lb_av] Body Mass Index (55802-1) 26.76 kg/m2 07/05/2025 09:33 AM Temperature (8310-5) 98.3 [degF] Oxygen Saturation (61499-1) 95 % Respiratory Rate (9279-1) 18 /min Heart Rate (8867-4) 92 /min Blood Pressure Systolic (8480-6) 124 mm[Hg] Blood Pressure Diastolic (8462-4) 72 mm[Hg] 07/05/2025 11:39 PM Oxygen Saturation (50387-9) 96 % Respiratory Rate (9279-1) 18 /min Heart Rate (8867-4) 77 /min Blood Pressure Systolic (8480-6) 157 mm[Hg] Blood Pressure Diastolic (8462-4) 75 mm[Hg] 07/05/2025 11:38 PM Temperature (8310-5) 97.2 [degF] 07/06/2025 06:48 AM Temperature (8310-5) 97.8 [degF] Oxygen Saturation (17716-8) 99 % Respiratory Rate (9279-1) 20 /min Heart Rate (8867-4) 74 /min Blood Pressure Systolic (8480-6) 158 mm[Hg] Blood Pressure Diastolic (8462-4) 70 mm[Hg] 07/07/2025 06:24 AM Temperature (8310-5) 97.9 [degF] Oxygen Saturation (15954-4) 97 % Respiratory Rate (9279-1) 18 /min Heart Rate (8867-4) 68 /min Blood Pressure Systolic (8480-6) 142 mm[Hg] Blood Pressure Diastolic (8462-4) 59 mm[Hg] 07/07/2025 03:24 AM Oxygen Saturation (71622-3) 96 % 07/07/2025 03:23 AM Respiratory Rate (9279-1) 17 /min Blood Pressure Systolic (8480-6) 159 mm[Hg] Blood Pressure Diastolic (8462-4) 82 mm[Hg] 07/07/2025 03:22 AM Temperature (8310-5) 97.5 [degF] Heart Rate (8867-4) 76 /min 07/08/2025 06:33 AM Temperature (8310-5) 98.5 [degF] Oxygen Saturation (64989-5) 98 % Respiratory Rate (9279-1) 16 /min Heart Rate (8867-4) 70 /min Blood Pressure Systolic (8480-6) 136 mm[Hg] Blood Pressure Diastolic (8462-4) 62 mm[Hg] 07/08/2025 11:44 PM Temperature (8310-5) 98.5 [degF] 07/09/2025 06:06 AM Temperature (8310-5) 97.9 [degF] Oxygen Saturation (39524-7) 97 % Respiratory Rate (9279-1) 16 /min Heart Rate (8867-4) 66 /min Blood Pressure Systolic (8480-6) 120 mm[Hg] Blood Pressure Diastolic (8462-4) 76 mm[Hg] 07/10/2025 10:45 AM Temperature (8310-5) 98.3 [degF] Oxygen Saturation (69505-8) 99 % Respiratory Rate (9279-1) 20 /min Heart Rate (8867-4) 73 /min Blood Pressure Systolic (8480-6) 134 mm[Hg] Blood Pressure Diastolic (8462-4) 75 mm[Hg] 07/10/2025 08:15 PM Oxygen Saturation (30913-0) 98 % 07/10/2025 08:14 PM Temperature (8310-5) 97.2 [degF] Respiratory Rate (9279-1) 18 /min Heart Rate (8867-4) 100 /min Blood Pressure Systolic (8480-6) 134 mm[Hg] Blood Pressure Diastolic (8462-4) 66 mm[Hg] 07/11/2025 06:35 AM Temperature (8310-5) 98.2 [degF] Oxygen Saturation (13861-7) 99 % Respiratory Rate (9279-1) 20 /min Heart Rate (8867-4) 75 /min Blood Pressure Systolic (8480-6) 119 mm[Hg] Blood Pressure Diastolic (8462-4) 73 mm[Hg] 07/11/2025 07:36 PM Oxygen Saturation (96125-3) 98 % 07/11/2025 07:35 PM Respiratory Rate (9279-1) 18 /min Heart Rate (8867-4) 63 /min Blood Pressure Systolic (8480-6) 122 mm[Hg] Blood Pressure Diastolic (8462-4) 76 mm[Hg] 07/11/2025 07:34 PM Temperature (8310-5) 97.2 [degF] 07/12/2025 07:12 AM Temperature (8310-5) 98 [degF] Oxygen Saturation (95370-1) 95 % Respiratory Rate (9279-1) 20 /min Heart Rate (8867-4) 70 /min Blood Pressure Systolic (8480-6) 139 mm[Hg] Blood Pressure Diastolic (8462-4) 74 mm[Hg] 07/12/2025 09:55 PM Oxygen Saturation (37667-2) 98 % 07/12/2025 09:53 PM Blood Pressure Systolic (8480-6) 1 25 mm[Hg] Blood Pressure Diastolic (8462-4) 90 mm[Hg] 07/12/2025 09:42 PM Respiratory Rate (9279-1) 18 /min Heart Rate (8867-4) 96 /min 07/13/2025 07:04 AM Temperature (8310-5) 98.6 [degF] Oxygen Saturation (25248-7) 99 % Respiratory Rate (9279-1) 19 /min Heart Rate (8867-4) 69 /min Blood Pressure Systolic (8480-6) 131 mm[Hg] Blood Pressure Diastolic (8462-4) 79 mm[Hg] 07/13/2025 07:03 PM Temperature (8310-5) 98.4 [degF] Oxygen Saturation (38353-5) 98 % Respiratory Rate (9279-1) 19 /min Heart Rate (8867-4) 79 /min Blood Pressure Systolic (8480-6) 115 mm[Hg] Blood Pressure Diastolic (8462-4) 74 mm[Hg] 07/14/2025 09:59 AM Temperature (8310-5) 97.4 [degF] Oxygen Saturation (92215-1) 95 % Respiratory Rate (9279-1) 20 /min Heart Rate (8867-4) 75 /min Blood Pressure Systolic (8480-6) 129 mm[Hg] Blood Pressure Diastolic (8462-4) 69 mm[Hg] 07/15/2025 07:31 AM Temperature (8310-5) 97.5 [degF] 07/15/2025 08:53 AM Temperature (8310-5) 98.9 [degF] Oxygen Saturation (21867-2) 99 % Respiratory Rate (9279-1) 20 /min Heart Rate (8867-4) 75 /min Blood Pressure Systolic (8480-6) 128 mm[Hg] Blood Pressure Diastolic (8462-4) 70 mm[Hg] 07/16/2025 07:40 AM Oxygen Saturation (12614-8) 95 % Respiratory Rate (9279-1) 17 /min Heart Rate (8867-4) 86 /min Blood Pressure Systolic (8480-6) 143 mm[Hg] Blood Pressure Diastolic (8462-4) 96 mm[Hg] 07/16/2025 07:17 AM Temperature (8310-5) 97.5 [degF] 07/17/2025 09:57 AM Temperature (8310-5) 98 [degF] Oxygen Saturation (90206-0) 99 % Respiratory Rate (9279-1) 20 /min Heart Rate (8867-4) 62 /min Blood Pressure Systolic (8480-6) 134 mm[Hg] Blood Pressure Diastolic (8462-4) 82 mm[Hg] 07/18/2025 08:03 AM Temperature (8310-5) 98.5 [degF] Oxygen Saturation (73565-4) 98 % Respiratory Rate (9279-1) 16 /min Heart Rate (8867-4) 99 /min Blood Pressure Systolic (8480-6) 123 mm[Hg] Blood Pressure Diastolic (8462-4) 62 mm[Hg] 07/19/2025 06:57 AM Temperature (8310-5) 98.6 [degF] Oxygen Saturation (12075-3) 98 % Respiratory Rate (9279-1) 20 /min Heart Rate (8867-4) 100 /min Blood Pressure Systolic (8480-6) 126 mm[Hg] Blood Pressure Diastolic (8462-4) 66 mm[Hg] 07/20/2025 08:29 AM Temperature (8310-5) 98.1 [degF] Oxygen Saturation (09594-8) 98 % Respiratory Rate (9279-1) 18 /min Heart Rate (8867-4) 72 /min Blood Pressure Systolic (8480-6) 136 mm[Hg] Blood Pressure Diastolic (8462-4) 81 mm[Hg] 07/21/2025 06:33 AM Temperature (8310-5) 98.2 [degF] Oxygen Saturation (33673-2) 97 % Respiratory Rate (9279-1) 16 /min Heart Rate (8867-4) 77 /min Blood Pressure Systolic (8480-6) 126 mm[Hg] Blood Pressure Diastolic (8462-4) 66 mm[Hg] 07/22/2025 07:52 AM Temperature (8310-5) 97.3 [degF] Oxygen Saturation (72194-1) 97 % Respiratory Rate (9279-1) 18 /min Heart Rate (8867-4) 92 /min Blood Pressure Systolic (8480-6) 114 mm[Hg] Blood Pressure Diastolic (8462-4) 72 mm[Hg] 07/22/2025 05:02 PM Temperature (8310-5) 98.2 [degF] 07/23/2025 10:40 AM Blood Pressure Systolic (8480-6) 1 37 mm[Hg] Blood Pressure Diastolic (8462-4) 76 mm[Hg] 07/23/2025 10:39 AM Temperature (8310-5) 98.6 [degF] Respiratory Rate (9279-1) 18 /min Heart Rate (8867-4) 64 /min 07/23/2025 10:41 AM Oxygen Saturation (14290-0) 98 % 07/24/2025 10:50 AM Oxygen Saturation (39669-1) 96 % 07/24/2025 10:49 AM Temperature (8310-5) 97.5 [degF] Respiratory Rate (9279-1) 18 /min Heart Rate (8867-4) 77 /min Blood Pressure Systolic (8480-6) 120 mm[Hg] Blood Pressure Diastolic (8462-4) 60 mm[Hg] 07/25/2025 08:21 AM Temperature (8310-5) 98.6 [degF] Oxygen Saturation (95056-4) 94 % Respiratory Rate (9279-1) 20 /min Heart Rate (8867-4) 72 /min Blood Pressure Systolic (8480-6) 132 mm[Hg] Blood Pressure Diastolic (8462-4) 70 mm[Hg] 07/26/2025 09:41 AM Temperature (8310-5) 97.8 [degF] Oxygen Saturation (41066-5) 98 % Respiratory Rate (9279-1) 20 /min Heart Rate (8867-4) 86 /min Blood Pressure Systolic (8480-6) 111 mm[Hg] Blood Pressure Diastolic (8462-4) 63 mm[Hg] 07/26/2025 07:02 PM Temperature (8310-5) 97.8 [degF] 07/27/2025 06:48 AM Temperature (8310-5) 96.4 [degF] Oxygen Saturation (73165-5) 94 % Respiratory Rate (9279-1) 20 /min Heart Rate (8867-4) 67 /min Blood Pressure Systolic (8480-6) 120 mm[Hg] Blood Pressure Diastolic (8462-4) 72 mm[Hg] 07/28/2025 10:00 AM Oxygen Saturation (13106-7) 95 % Respiratory Rate (9279-1) 17 /min Heart Rate (8867-4) 70 /min Blood Pressure Systolic (8480-6) 110 mm[Hg] Blood Pressure Diastolic (8462-4) 70 mm[Hg] 07/28/2025 07:41 AM Temperature (8310-5) 98.1 [degF] 07/29/2025 09:22 AM Temperature (8310-5) 97.3 [degF] Oxygen Saturation (59787-0) 99 % Respiratory Rate (9279-1) 22 /min Heart Rate (8867-4) 59 /min Blood Pressure Systolic (8480-6) 105 mm[Hg] Blood Pressure Diastolic (8462-4) 64 mm[Hg] 07/29/2025 05:21 PM Temperature (8310-5) 97.5 [degF] 07/30/2025 08:26 AM Temperature (8310-5) 98.3 [degF] Oxygen Saturation (33342-2) 98 % Respiratory Rate (9279-1) 13 /min Heart Rate (8867-4) 79 /min Blood Pressure Systolic (8480-6) 144 mm[Hg] Blood Pressure Diastolic (8462-4) 68 mm[Hg] 07/31/2025 07:21 PM Temperature (8310-5) 97.5 [degF] 07/31/2025 07:22 PM Oxygen Saturation (67721-5) 95 % Respiratory Rate (9279-1) 18 /min Heart Rate (8867-4) 89 /min Blood Pressure Systolic (8480-6) 112 mm[Hg] Blood Pressure Diastolic (8462-4) 72 mm[Hg] 08/01/2025 07:30 AM Temperature (8310-5) 98.2 [degF] Oxygen Saturation (39336-1) 97 % Respiratory Rate (9279-1) 20 /min Heart Rate (8867-4) 77 /min Blood Pressure Systolic (8480-6) 118 mm[Hg] Blood Pressure Diastolic (8462-4) 53 mm[Hg] 08/02/2025 01:21 PM Temperature (8310-5) 97.8 [degF] Oxygen Saturation (70575-6) 97 % Respiratory Rate (9279-1) 20 /min Heart Rate (8867-4) 69 /min Blood Pressure Systolic (8480-6) 108 mm[Hg] Blood Pressure Diastolic (8462-4) 56 mm[Hg] 08/03/2025 08:16 AM Temperature (8310-5) 97.5 [degF] Oxygen Saturation (42473-2) 97 % Respiratory Rate (9279-1) 20 /min Heart Rate (8867-4) 61 /min Blood Pressure Systolic (8480-6) 115 mm[Hg] Blood Pressure Diastolic (8462-4) 65 mm[Hg] 08/04/2025 06:31 AM Temperature (8310-5) 98.2 [degF] Oxygen Saturation (30886-6) 98 % Respiratory Rate (9279-1) 16 /min Heart Rate (8867-4) 66 /min Blood Pressure Systolic (8480-6) 123 mm[Hg] Blood Pressure Diastolic (8462-4) 68 mm[Hg] 08/05/2025 06:38 AM Temperature (8310-5) 98 [degF] Oxygen Saturation (13950-1) 97 % Respiratory Rate (9279-1) 18 /min Heart Rate (8867-4) 60 /min Blood Pressure Systolic (8480-6) 135 mm[Hg] Blood Pressure Diastolic (8462-4) 62 mm[Hg] 08/05/2025 01:36 PM Body Weight (40012-5) 174 [lb_av] Body Mass Index (89037-0) 26.45 kg/m2 08/06/2025 06:44 AM Temperature (8310-5) 97.7 [degF] Oxygen Saturation (18066-1) 90 % Respiratory Rate (9279-1) 17 /min Blood Pressure Systolic (8480-6) 152 mm[Hg] Blood Pressure Diastolic (8462-4) 84 mm[Hg] 08/06/2025 06:27 AM Heart Rate (8867-4) 62 /min Social History No smoking Hx information available Encounters Type CPT Code Date Location Provider Indication s encounter report 11/03/2024 05:4 4 PM - 11/03/2024 05:47 PM Vinnie N Garcia DO 03 encounter report 05/27/2023 10:5 3 PM - 06/21/2024 07:38 PM Vinnie Landis Garcia DO 02 encounter report 11/18/2024 01:0 3 PM - 11/25/2024 10:08 PM Vinnie Landis Garcia DO 03 encounter report 11/18/2024 01:0 3 PM - 12/20/2024 11:25 PM Vinnie Landis Garcia DO 03 encounter report 11/18/2024 01:0 3 PM - 01/06/2025 12:42 PM Vinnie Landis Garcia DO 03 encounter report 11/18/2024 01:0 3 PM - 06/05/2025 10:23 PM Vinnie Landis Garcia DO 03 Advance Directives Directive Description Verification Date Supporting Document(s) Other Directive
--- NOTE | 2025-08-06 19:12 | ECG_ITS ---
[facility] [place] [facility] 2025-08[facility]06 Pat Name: Raphael Deal Department: Room: Gender: Male [employer]: : 1950 Requested By: Joaquim Lindsey Order Number: [id number] Pemberton MD: Meghan Valles M.D. Measurements Intervals [place] Rate: 86 P: 0 UT: 0 QRS: 99 QRSD: 121 T: -14 QT: 385 QTc: 461 Interpretive Statements ATRIAL FIBRILLATION RIGHT BUNDLE BRANCH BLOCK [120+ ms QRS DURATION, UPRIGHT V1, 40+ ms S IN I/aVL/V4/V5/V6] Compared to ECG 11/25/2024 23:00:13 Left posterior fascicular block no longer present Electronically Signed On 08-08-2025 22:16:16 [employer] by Meghan Valles M.D. [email or web address]
--- NOTE | 2025-08-06 19:36 | ED_ITS ---
HPI - Altered Mental Status 2 General: Chief Complaint: Altered Mental Status Stated Complaint: AMS Time Seen by Provider: 08/06/25 19:09 History of Present Illness: 75-year-old male gentleman who evidently was delusional in the longterm, stating that he was a werewolf, and stopped eating hemin few days ago . He has a history of chronic urinary outlet obstruction with bilateral nephrostomy tubes. He tells me that was post to be changed tomorrow. He denies any fever. He states that he never gets a fever. He complains of being cold. He complains of chronic low back and hip pain. He at one point evidently had an MRI at this facility showing possible discitis/osteomyelitis of the spine. He was transferred from here to [facility] in [place] for urology and spine surgery consultations. He ended up with a PICC line and antibiotics. He does have a history of hallucinations, when ill. Related Data Home Medications ?Medication ?Instructions ?Recorded ?Confirmed fluticasone 100 mcg-salmeterol 50 1 inh inhalation BID 10/03/21 06/06/25 mcg/dose blistr powdr for inhalation (Wixela Inhub) acetaminophen 325 mg tablet 650 mg PO Q6H PRN Pain 06/06/25 (Tylenol) albuterol sulfate 90 mcg/actuation 2 puff inhalation Q 4H PRN Dyspnea 04/27/24 06/06/25 aerosol inhaler furosemide 20 mg tablet 20 mg PO DAILY 04/27/2411/29 atorvastatin 80 mg tablet 80 mg PO DAILY 11/26/2411/29 digoxin 125 mcg (0.125 mg) tablet 125 mcg PO DAILY 06/06/25 fluticasone propionate 50 1 spray intranasal DAILY 06/06/25 mcg/actuation nasal spray,suspension hydrocodone 7.5 mg-acetaminophen 1 tab PO BID PRN Pain 11/26/24 06/06/25 325 mg tablet insulin lispro 100 unit/mL See Rx Instructions .Route .COMPLEX 11/26/24 06/06/25 subcutaneous pen metformin 500 mg tablet 500 mg PO DAILY 11/26/2411/29 omeprazole 20 mg capsule,delayed 20 mg PO DAILY 06/06/25 release ondansetron HCl 4 mg tablet 4 mg PO TID PRN Nausea And Vomiting 11/26/24 06/06/25 amiodarone 200 mg tablet 200 mg PO DAILY 02/24/2511/29 fentanyl 100 mcg/hr transdermal 100 mcg transdermal 3X D 06/06/25 06/06/25 patch fosfomycin tromethamine 3 gram See Rx Instructions .Ro [place] .COMPLEX 06/06/25 06/06/25 oral packet insulin glargine 100 unit/mL (3 25 unit SUBCUT DAILY 0 06/06/25 06/06/25 mL) subcutaneous pen (Lantus Solostar U-100 Insulin) insulin lispro 100 unit/mL 10 unit SUBCUT TIDWM 06/06/25 subcutaneous pen nystatin 100,000 unit/gram topical 1 applic topical TI D 06/06/25 06/06/25 powder polyethylene glycol 3350 17 17 g PO DAILY PRN Constipa tion 06/06/25 06/06/25 gram/dose oral powder (Miralax) simethicone 125 mg capsule See Rx Instructions .Route 06/06/25 06/06/25 .COMPLEX PRN Gas Previous Rx's ?Medication ?Instructions ?Recorded flash glucose scanning reader #1 ea 08/25/23 (FreeStyle Jimi 2 Lucinda) FreeStyle Jimi 2 Sensor (flash #6 ea 12/11/23 glucose sensor) blood-glucose sensor (Dexcom G7 #3 ea 02/08/24 Sensor device) blood-glucose,guest services attendant,cont #1 ea 02/08/24 (Dexcom G7 Cake Tester) Allergies Allergy/AdvReac Type Severity Reaction Status Date / Time pollen extracts Allergy Unknown Verified 02/24/25 09:23 [facility] ED 2 [facility]: Medical History Yeast UTI Hematuria due to acute cystitis Mild cognitive impairment with memory loss Bacteriuria Alzheimer disease 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 mellitus History of Doppler ultrasound 08/2021 venous no DVT BLE 08/2021 arterial patent vessels, left posterior tibial may be less than 60% stenosis, left dorsalis pedis not visualized Gait instability SARS-CoV-2 positive positive test 11/17/2021 symptoms weakness, hypoglycemia, altered mental status and low grade fever Anemia Intermittent self-catheterization of bladder due to urinary retention History of sleep study 02/22 limited sleep, no apnea noted but did have nocturnal hypoxemia, recommended to use nocturnal oxygen History of electromyography 01/23 Interpretation: The study provides electrodiagnostic evidence for an axonal sensorimotor polyneuropathy based on small or absent CMAPs and SNAPs with denervation seen distally on EMG. The study is limited for evaluation of lumbar radiculopathy related to the patient's anticoagulated state. History of echocardiogram 05/2021 EF 65% History of cardiovascular stress test 05/2021 normal EKG response, perfusion study without findings of ischemia Diabetes mellitus, type II Chronic anticoagulation Taken off Xarelto secondary to hematuria BPH loc w urin obs/LUTS Obstructive pyelonephritis 09/2021 required ureteral stent placement Left ureteral calculus Diabetic foot ulcer 08/2021 - treated with I&D, antibiotics and wound care clinic management Lumbar stenosis with neurogenic claudication 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 mellitus Cervicalgia of qgdejccw-fabqddx-gikta region Lumbar stenosis L2/3, L3/4, L4/L5, with radiculopathy right lower extremity H/O prostate cancer Obstructive sleep apnea Refuses CPAP HTN (hypertension) previously on treatment for high blood pressure Atrial fibrillation Surgical History Status post excisional debridement 08/2021 left foot History of laminectomy 03/25 bilateral with partial facetectomies at L2-3, L3-4, L4-[address] Smith Other postprocedural status history of radiofrequency ablation for back pain x 2 Status post laser lithotripsy of ureteral calculus (11/06/21) S/P ureteral stent placement (09/2021) subsequent removal H/O esophagogastroduodenoscopy (10/30/21) 10/2021 pedunculated polyps removed from first portion of duodenum, otherwise normal History of colonoscopy (10/30/21) 11/2021 diverticulosis of sigmoid colon and internal hemorrhoids, sessile polyps removed History of back surgery S/P tonsillectomy S/P appendectomy History of pilonidal cyst Family History Grandmother Heart disease Hypertension Grandfather Hypertension MATERNAL Diabetes Mother No problems noted. Father No problems noted. 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 Physical Exam 2 Const: COMMON NORMALS: no acute distress GENERAL APPEARANCE: cooperative and frail appearing HENMT: COMMON NORMALS: normocephalic, atraumatic and Normal external nose present HEAD & SCALP: normocephalic and atraumatic FACE & SINUS: normal facial exam and face symmetric NOSE: Normal external nose present Eye: COMMON NORMALS: Equal, round and reactive pupils present and EOMs intact bilaterally PUPIL: Yes Equal, round and reactive pupils present Neck/C-Spine: GENERAL: Yes trachea midline Chest: CHEST: Yes Symmetrical chest wall rise Resp: COMMON NORMALS: normal respiratory effort, No retractions, No use of accessory muscles and clear to auscultation bilaterally AUSCULTATION: clear to auscultation bilaterally Cardio: COMMON NORMALS: regular rate and regular rhythm RATE: regular rate RHYTHM: regular rhythm GI: COMMON NORMALS: Normal to inspection, nondistended, normoactive bowel sounds present Extremity: COMMON NORMALS: no pedal edema Neuro: FARRUKH COMA SCALE: document GCS findings [place] coma scale eye opening: Spontaneous Farrukh coma scale verbal response: Confused Farrukh coma scale motor response: Obey commands [place] coma scale total score: 14 S ENSORY EXAM: Yes extremities (intact) Psych: COMMON NORMALS: speech normal SPEECH: Yes normal speech Skin: COMMON NORMALS: no rashes or lesions noted GENERAL SKIN EXAM: no rashes or lesions noted Course 2 Vital Signs: Vital signs: Vital Signs Temperature 98.2 F 08/06/25 19:05 Pulse Rate 89 08/07/25 00:30 Respiratory Rate 20 H 08/06/25 19:05 Blood Pressure 138/76 08/07/25 00:30 Pulse Oximetry 100 08/07/25 00:30 Oxygen Delivery Me thod Room Air 08/07/25 00:30 MDM - Altered Mental Status Medical Decision Making The patient is normotensive here. He is not tachycardic. Initial lactate however was 3.3. White blood cell count of 14. He is given a sepsis bolus, Zosyn after blood cultures are drawn. Creatinine is 1.1. Bicarb 20. Repeat lactic after fluid bolus is 1.1. Urinalyses are obtained from each nephrostomy tube. The right side showing greater than 100 whites and 4+ bacteria. The left side showing greater than 100 whites 0 bacteria. Both show 3+ leukocyte esterase. CT shows bilateral nephrostomy tubes in appropriate and stable position with inflammation adjacent to the right renal pelvis. There is no definite obstruction. The patient's mental status does seem a bit better. I spoke with our hospitalist here. We do not have urology services here, and so they are unwilling to take the patient as the patient is scheduled for nephrostomy tube replacement at [facility] in [place] tomorrow. I spoke with the urologist on-call in [place]. He states that he is the patient can be transferred to [place], or get IV antibiotics here, be discharged or transferred in a couple of days when improved. I spoke with our hospitalist team again at this facility, and they are nervous about taking the patient in case there is a need to replace the nephrostomy tubes as scheduled. We have a call out to the hospitalist at [facility] in [place]. Currently the patient is stable. He has grown both Klebsiella and VRE that was evidently susceptible to penicillin in the past on urine culture. [place] has accepted. He is stable for transport. Lab Data 08/06/25 19:40 08/06/25 19:40 Radiology Impressions Abdomen/Pelvis CT 08/06/25 20:44 IMPRESSION: 1. Bilateral percutaneous nephrostomy tubes in stable position. Unchanged inflammation adjacent to the right renal pelvis. Unchanged mild bilateral hydroureteronephrosis. 2. Unchanged decompression of the urinary bladder with mild wall thickening and adjacent inflammation, possible cystitis. 3. No new intra-abdominal pathology identified relative to the comparison exam from 06/05/2025. 4. Unchanged cholelithiasis. Laboratory Results WBC 14.13 10^3/uL (3.29-11.43) H 08/06/25 19:40 RBC 4.38 10^6/uL (3.85-5.65) 08/06/25 19:40 Hgb 11.80 g/dL (11.27-16.99) 08/06/25 19:40 Hct 36.4 % (37-53) L 08/06/25 19:40 MCV 83.1 fl (82-101) 08/06/25 19:40 MCH 26.9 pg (27-33) L 08/06/25 19:40 MCHC 32.4 g/dL (30-55) 08/06/25 19:40 RDW 15.2 % (12.1-15.1) H 08/06/25 19:40 Plt Count 417 10^3/cmm (157-399) H 08/06/25 19:40 MPV 10.3 fL (7.4-10.4) 08/06/25 19:40 Neut % (Auto) 79.1 % 08/06/25 19:40 Lymph % (Auto) 12.7 % 08/06/25 19:40 [place] % (Auto) 5.1 % 08/06/25 19:40 Eos % (Auto) 2.2 % 08/06/25 19:40 Baso % (Auto) 0.6 % 08/06/25 19:40 Neut # (Auto) 11.18 10^3/uL (1.8-7.7) H 08/06/25 19:40 Lymph # (Auto) 1.8 10^3/uL (0.8-4.8) 08/06/25 19:40 [place] # (Auto) 0.7 10^3/uL (0.2-0.9) 08/06/25 19:40 Eos # (Auto) 0.3 10^3/uL (0.0-0.8) 08/06/25 19:40 Baso # (Auto) 0.1 10^3/uL (0.0-0.1) 08/06/25 19:40 Nucleated RBC % (auto) 0 % 08/06/25 19:40 Nucleated RBCs # 0.0 /100WBC 08/06/25 19:40 ESR 10 mm/hr (0-10) 08/06/25 19:40 Sodium 137 mmol/L (136-145) 08/06/25 19:40 Potassium 3.8 mmol/L (3.5-5.1) 08/06/25 19:40 Chloride 102 mmol/L (98-107) 08/06/25 19:40 Carbon Dioxide 20 mmol/L (22-29) L 08/06/25 19:40 Anion Gap 18.8 (5-19) 08/06/25 19:40 BUN 17 mg/dL (8-23) 08/06/25 19:40 Creatinine 1.1 mg/dL (0.7-1.2) 08/06/25 19:40 GFR Calculation Not Reportable 08/06/25 19:40 Glucose 191 mg/dL (65-115) H 08/06/25 19:40 Calculated Osmolality 291 mOsm/kg (285-295) 08/06/25 19:40 Lactic Acid 3.3 mmol/L (0.5-2.2) H 08/06/25 19:40 Lactic Acid (Sepsis) 1.1 mmol/L (0.5-2.2) 08/06/25 22:30 Calcium 9.2 mg/dL (8.5-10.5) 08/06/25 19:40 Magnesium 1.4 mg/dL (1.7-2.3) L 08/06/25 19:40 Total Bilirubin 0.7 mg/dL (0.15-1.2) 08/06/25 19:40 AST 15 U/L (0-40) 08/06/25 19:40 ALT 12 U/L (0-41) 08/06/25 19:40 Alkaline Phosphatase 125 U/L (40-130) 08/06/25 19:40 C-Reactive Protein 46.5 mg/L (0.0-4.9) H 08/06/25 19:40 Total Protein 6.9 g/dL (6.6-8.7) 08/06/25 19:40 Albumin 3.6 g/dL (3.5-5.2) 08/06/25 19:40 Globulin 3.3 g/dL (1.3-4.6) 08/06/25 19:40 Urine Color Yellow (Yellow) 08/06/25 20:45 Urine Color Yellow (Yellow) 08/06/25 20:45 Urine Appearance Turbid (CLEAR) A 08/06/25 20:45 Urine Appearance Turbid (CLEAR) A 08/06/25 20:45 Urine pH 6.5 (5-7) 08/06/25 20:45 Urine pH 7.0 (5-7) 08/06/25 20:45 Ur Specific [place] 1.012 (1.005-1.030) 08/06/25 20:45 Ur Specific [place] 1.016 (1.005-1.030) 08/06/25 20:45 Urine Protein 2+ (Negative) A 08/06/25 20:45 Urine Protein 2+ (Negative) A 08/06/25 20:45 Urine Glucose (UA) Negative (Normal) 08/06/25 20:45 Urine Glucose (UA) Trace (Normal) H 08/06/25 20:45 Urine Ketones Negative (Negative) 08/06/25 20:45 Urine Ketones Negative (Negative) 08/06/25 20:45 Urine Blood 2+ (Negative) A 08/06/25: Urine Blood 2+ (Negative) A 08/06/25 20:45 Urine Nitrate Negative (Negative) 08/06/25 20:45 Urine Nitrate Negative (Negative) 08/06/25 20:45 Urine Bilirubin Negative (Negative) 08/06/25 20: Urine Bilirubin Negative (Negative) 08/06/25 20:45 Urine Urobilinogen 1.0 mg/dL (Negative) 08/06/25 20:45 Urine Urobilinogen 1.0 mg/dL (Negative) 08/06/25 20:45 Ur Leukocyte Esterase 3+ (Negative) A 08/06/25 20:45 Ur Leukocyte Esterase 3+ (Negative) A 08/06/25 20:45 Urine RBC 6-10 /hpf (0-2) 08/06/25 20:45 Urine RBC 51-100 /hpf (0-2) H 08/06/25 20:45 Urine WBC >100 /hpf (0-5) H 08/06/25 20:45 Urine WBC >100 /hpf (0-5) H 08/06/25 20:45 Ur Squamous Epith Cells 0-5 /hpf (0-5) 08/06/25 20:45 Ur Squamous Epith Cells 0-5 /hpf (0-5) 08/06/25 20:45 Amorphous Sediment Not Reportable 08/06/25 20:45 Amorphous Sediment Not Reportable 08/06/25 20:45 Urine Bacteria 4+ /hpf (NONE) H 08/06/25 20:45 Urine Bacteria None seen /hpf (NONE) 08/06/25 20:45 Hyaline Casts 2.87 /lpf 08/06/25 20:45 Hyaline Casts 12.81 /lpf 08/06/25 20:45 Urine Yeast 3+ /hpf H 08/06/25 20:45 All radiology interpretation(s) finalized by discharge Discharge Plan Discharge Patient Disposition: Xfer Short-Term Hosp Clinical Impression: Acute pyelonephritis, Sepsis, Acute alteration in mental status Condition: Stable Referrals: Trisha Urena MD [Primary Care Provider, [facility]] Patient Instructions: Altered Mental Status (ED) Print Language: Yoruba Coding Level of Care Code 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
[2025-08-06 20:04] LABS: Hematocrit 36.4 % (37-53); Hemoglobin 11.80 g/dL (11.27-16.99); Mean Corpuscular HGB Conc 32.4 g/dL (30-55); Mean Corpuscular Hemoglobin 26.9 pg (27-33); Mean Corpuscular Volume 83.1 fl (82-101); Nucleated Red Blood Cells % 0 %; Platelet Count 417 10^3/cmm (157-399); Red Blood Count 4.38 10^6/uL (3.85-5.65); White Blood Count 14.13 10^3/uL (3.29-11.43)
[2025-08-06 20:13] LABS: Glucose Urine UA Negative (Normal); Glucose Urine UA Trace (Normal); Nitrate Urine Negative (Negative); Specific Gravity, Urine 1.012 (1.005-1.030); Specific Gravity, Urine 1.016 (1.005-1.030)
[2025-08-06 20:18] LABS: Add Urine Microscopic? YES; Universal Test for UA Present (0)
[2025-08-06 20:19] LABS: Add Urine Microscopic? YES; Universal Test for UA Present (0)
[2025-08-06 20:24] LABS: Lactic Sepsis W/Reflex 3.3 mmol/L (0.5-2.2)
[2025-08-06 20:25] LABS: Alanine Aminotransferase 12 U/L (0-41); Albumin Level 3.6 g/dL (3.5-5.2); Alkaline Phosphatase 125 U/L (40-130); Anion Gap 18.8 (5-19); Aspartate Amino Transferase 15 U/L (0-40); Blood Urea Nitrogen 17 mg/dL (8-23); Calcium 9.2 mg/dL (8.5-10.5); Carbon Dioxide 20 mmol/L (22-29); Chloride 102 mmol/L (98-107); Creatinine Clr Calc Pharmacy 58.6747; Globulin 3.3 g/dL (1.3-4.6); Glucose 191 mg/dL (65-115); Magnesium 1.4 mg/dL (1.7-2.3); Osmolality Calculated 291 mOsm/kg (285-295); Potassium 3.8 mmol/L (3.5-5.1); Sodium 137 mmol/L (136-145); Total Protein 6.9 g/dL (6.6-8.7)
--- NOTE | 2025-08-06 20:44 | CTR_ITS ---
PROCEDURE INFORMATION: Exam: CT Abdomen And Pelvis With Contrast Exam date and time: 08/06/2025 10:17 PM Age: 75 years old Clinical indication: Abnormal findings; Abnormal lab test; Elevated wbc; Fever and other: UTI; Prior surgery; Surgery date: 6+ months; Surgery type: Bilat nephrostomy. Appy; Leukocytosis with fever and UTI. History of prostate cancer. ; Additional info: Fever, UTI, nephrostomy tube TECHNIQUE: Imaging protocol: Computed tomography of the abdomen and pelvis with contrast. Radiation optimization: All CT scans at this facility use at least one of these dose optimization techniques: automated exposure control; mA and/or kV adjustment per patient size (includes targeted exams where dose is matched to clinical indication); or iterative reconstruction. Contrast material: OMNI 350; Contrast volume: 100 ml; Contrast route: INTRAVENOUS (IV); COMPARISON: CT abdomen pelvis wo con [id number] 06/05/2025 11:00 PM RADIATION DOSE METRICS: Total DLP (mGy-cm): 1556.96 FINDINGS: Tubes, catheters and devices: Bilateral percutaneous nephrostomy tubes, stable in position. Mild bilateral hydronephrosis, [id number], similar to the comparison. Bilateral ureteral dilation, unchanged. Inflammation adjacent to the right renal pelvis, grossly unchanged. Nonobstructing 3 mm stone within the lower pole collecting system of the right kidney, unchanged. Lungs: Mild bilateral lower lung scarring/atelectasis, grossly unchanged. Heart: Heart normal in size. Small volume posterior pericardial effusion, partially imaged, measuring 8 mm. Liver: Normal. No mass. Gallbladder and biliary ducts: Small stones and/or sludge layering within the gallbladder lumen near the neck. No gallbladder wall thickening or pericholecystic fluid. Pancreas: Normal. No ductal dilation. Spleen: Normal. No splenomegaly. Adrenal glands: Normal. No mass. Kidneys and ureters: See Tubes, catheters and devices finding. Stomach and bowel: Unremarkable. No obstruction. No mucosal thickening. Appendix: No evidence of appendicitis. Intraperitoneal space: Unremarkable. No free air. No significant fluid collection. Vasculature: Moderate to severe atherosclerotic calcification of the aorta and major branch vessels without aneurysm. Lymph nodes: Unremarkable. No enlarged lymph nodes. Urinary bladder: Unchanged decompression of the urinary bladder with mild wall thickening and adjacent inflammation. Reproductive: Unremarkable as visualized. Bones/joints: Severe degenerative changes of the lumbosacral spine, stable. No identified acute osseous abnormality. Soft tissues: Unremarkable. CT/CT abdomen pelvis w con* [id number] IMPRESSION: 1. Bilateral percutaneous nephrostomy tubes in stable position. Unchanged inflammation adjacent to the right renal pelvis. Unchanged mild bilateral hydroureteronephrosis. 2. Unchanged decompression of the urinary bladder with mild wall thickening and adjacent inflammation, possible cystitis. 3. No new intra-abdominal pathology identified relative to the comparison exam from 06/05/2025. 4. Unchanged cholelithiasis.
[2025-08-06] MEDS: iohexol 350 mg/mL 500 mL Btl (per mL) IV (21:22)
[2025-08-06] MEDS: piperacillin-tazobactam 3.375 GM in sodium chloride 0.9% (plus) 50 ML IV (21:40)
[2025-08-06 21:52] LABS: Reflex Lactate Order REFLEX LACTIC ORDERD
[2025-08-06 22:56] LABS: Lactic Acid level (Lactate) 1.1 mmol/L (0.5-2.2)
[2025-08-06] MEDS: HYDROcodone-acetaminophen 7.5-325 mg Tablet 1 TAB PO (23:26)
[2025-08-07 00:06] VITALS: BP 137/76; PULSE 78; O2SAT 100
[2025-08-07 00:30] VITALS: BP 138/76; PULSE 89; O2SAT 100
[2025-08-07 01:30] VITALS: BP 136/78; PULSE 89; O2SAT 100
[2025-08-07 02:36] VITALS: BP 140/61; PULSE 92; O2SAT 94
== END 2025-08-07 02:48 | disposition short-term general hospital (02) ==
PROVIDERS: Emergency Provider Emergency Medicine; PCP Family Medicine
DX: N10 Acute pyelonephritis (principal); R41.82 Altered mental status, unspecified; A41.9 Sepsis, unspecified organism; I10 Essential (primary) hypertension; E11.40 Type 2 diabetes mellitus with diabetic neuropathy, unspecified
CPT/HCPCS: 36415; 74177; 80053; 81001; 83605; 83735; 85025; 85651; 86140; 87040; 87077; 87086; 87186; 93005; 96365; 96366; 99285; J2543; J7030; J9999

== ENCOUNTER → 2025-08-30 08:49 | Outpatient (BNVA) | payer OTHER, SELFPAY | PROVIDERS: PCP Family Medicine; Visit Provider Internal Medicine | DX: I48.91 Unspecified atrial fibrillation (principal); I10 Essential (primary) hypertension | CPT/HCPCS: 99213 ==

== ENCOUNTER 2025-09-08 15:43 | Emergency (ER) | payer OTHER, SELFPAY ==
[2025-09-08 15:43] VITALS: BP 124/78; PULSE 87; RESP 18; TEMP 37; O2SAT 99; BMI 26.6
--- NOTE | 2025-09-08 16:08 | W.ED.SKABFB ---
HPI - Skin/Abscess/Foreign Bdy General: Chief complaint: Skin/Abscess/Foreign Body Stated complaint: rectal bed sore Time Seen by Provider: 09/08/25 15:45 History of Present Illness: Patient is a 75-year-old male with history of A-fib, not on AC, on dig, DM, bilateral nephrostomy tubes x 5 years after prostate cancer, presents to the emergency room due to sacral decub. Patient has been under care for sacral decub for a while. He states that at the correction where he is rehabbing, sometimes they wipe him too hard and there was white drainage today. No fevers. No chills. No recent cold, virus, or illness. No shortness of breath. He does have ongoing ambulatory dysfunction and is working through rehab with this. No nausea, or vomiting. No change in stool. Location: buttocks Associated symptoms: Deny chills, fever(s), nausea or vomiting Related Data Home Medications ?Medication ?Instructions ?Recorded ?Confirmed fluticasone 100 mcg-salmeterol 50 1 inh inhalation BID 10/03/21 09/08/25 mcg/dose blistr powdr for inhalation (Wixela Inhub) acetaminophen 325 mg tablet 650 mg PO Q6H PRN Pain 07/02/23 09/08/25 (Tylenol) albuterol sulfate 90 mcg/actuation 2 puff inhalation Q4H PRN Dyspnea 04/27/24 09/08/25 aerosol inhaler furosemide 20 mg tablet 20 mg PO DAILY 04/27/24 09/08/25 atorvastatin 80 mg tablet 80 mg PO DAILY 11/26/24 09/08/25 digoxin 125 mcg (0.125 mg) tablet 125 mcg PO DAILY 11/26/24 09/08/25 fluticasone propionate 50 1 spray intranasal DAILY 11/26/24 09/08/25 mcg/actuation nasal spray,suspension hydrocodone 7.5 mg-acetaminophen 1 tab PO BID PRN Pain 11/26/24 09/08/25 325 mg tablet insulin lispro 100 unit/mL See Rx Instructions .Route .COMPLEX 11/26/24 09/08/25 subcutaneous pen metformin 500 mg tablet 500 mg PO DAILY 11/26/24 09/08/25 omeprazole 20 mg capsule,delayed 20 mg PO DAILY 11/26/24 09/08/25 release ondansetron HCl 4 mg tablet 4 mg PO TID PRN Nausea And Vomiting 11/26/24 09/08/25 fentanyl 100 mcg/hr transdermal 100 mcg transdermal .Q3D 06/06/25 09/08/25 patch fosfomycin tromethamine 3 gram See Rx Instructions .Route .COMPLEX 06/06/25 08/30/25 oral packet insulin glargine 100 unit/mL (3 25 unit SUBCUT DAILY 06/06/25 09/08/25 mL) subcutaneous pen (Lantus Solostar U-100 Insulin) insulin lispro 100 unit/mL 10 unit SUBCUT TIDWM 06/06/25 09/08/25 subcutaneous pen nystatin 100,000 unit/gram topical 1 applic topical TID 06/06/25 09/08/25 powder polyethylene glycol 3350 17 17 g PO DAILY PRN Constipation 06/06/25 09/08/25 gram/dose oral powder (Miralax) simethicone 125 mg capsule See Rx Instructions .Route 06/06/25 09/08/25 .COMPLEX PRN Gas ciprofloxacin HCl 500 mg tablet 500 mg PO .three times a week 08/30/25 09/08/25 (Cipro) ascorbic acid (vitamin C) 500 mg 1,000 mg PO DAILY 09/08/25 09/08/25 tablet (Vitamin C) honey 80 % topical gel (MediHoney 1 applic topical BID 09/08/25 09/08/25 (honey)) methenamine hippurate 1 gram tablet 1 g PO BID 09/08/25 09/08/25 Previous Rx's ?Medication ?Instructions ?Recorded flash glucose scanning reader #1 ea 08/25/23 (FreeStyle Jimi 2 [place]) FreeStyle Jimi 2 Sensor (flash #6 ea 12/11/23 glucose sensor) blood-glucose sensor (Dexcom G7 #3 ea 02/08/24 Sensor device) blood-glucose,computer training specialist,cont #1 ea 02/08/24 (Dexcom G7 Religion Instructor) Lactobacillus acidophilus 25 25 cell (0 x 25 million cell) PO 09/08/25 million cell capsule DAILY 30 days #30 caps cephalexin 500 mg capsule 500 mg PO TID 10 days #30 caps 09/08/25 Allergies Allergy/AdvReac Type Severity Reaction Status Date / Time pollen extracts Allergy Unknown Verified 05/23/25 09:23 Review of Systems General: Reports: 10 or more systems reviewed and unremarkable except in HPI and below Const: Denies: fever(s) or chills Eyes: Denies: change in vision or blurry vision Card: Denies: chest pain, palpitations, irregular heart rhythm, lightheadedness, syncope, pre-syncope, dyspnea on exertion, orthopnea or leg pain with exertion Resp: Denies: dyspnea, productive cough or non-productive cough GI: Denies: abdominal pain, nausea, vomiting, heartburn, diarrhea or constipation : Reports: other (Bilateral nephrostomy tubes); Denies: flank pain or difficulty urinating Musc: Denies: extremity pain or extremity swelling Skin/Breast: Reports: skin tenderness, sores and changing lesions Neuro: Denies: headache(s) or numbness in extremities Psych: Denies: anxiety or depression PFS ED PFSH: Medical History (Updated 09/08/25 @ 17:17 by DESIREE Edwards) Yeast UTI Hematuria due to acute cystitis Mild cognitive impairment with memory loss Bacteriuria Alzheimer disease 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 mellitus History of Doppler ultrasound 08/2021 venous no DVT BLE 08/2021 arterial patent vessels, left posterior tibial may be less than 60% stenosis, left dorsalis pedis not visualized Gait instability SARS-CoV-2 positive positive test 11/17/2021 symptoms weakness, hypoglycemia, altered mental status and low grade fever Anemia Intermittent self-catheterization of bladder due to urinary retention History of sleep study 02/22 limited sleep, no apnea noted but did have nocturnal hypoxemia, recommended to use nocturnal oxygen History of electromyography 01/23 Interpretation: The study provides electrodiagnostic evidence for an axonal sensorimotor polyneuropathy based on small or absent CMAPs and SNAPs with denervation seen distally on EMG. The study is limited for evaluation of lumbar radiculopathy related to the patient's anticoagulated state. History of echocardiogram 05/2021 EF 65% History of cardiovascular stress test 05/2021 normal EKG response, perfusion study without findings of ischemia Diabetes mellitus, type II Chronic anticoagulation Taken off Xarelto secondary to hematuria BPH loc w urin obs/LUTS Obstructive pyelonephritis 09/2021 required ureteral stent placement Left ureteral calculus Diabetic foot ulcer 08/2021 - treated with I&D, antibiotics and wound care clinic management Lumbar stenosis with neurogenic claudication 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 mellitus Cervicalgia of nlobahtl-[id number]-[id number] region Lumbar stenosis L2/3, L3/4, L4/L5, with radiculopathy right lower extremity H/O prostate cancer Obstructive sleep apnea Refuses CPAP HTN (hypertension) Atrial fibrillation Surgical History Status post excisional debridement 08/2021 left foot History of laminectomy 03/25 bilateral with partial facetectomies at L2-3, L3-4, L4-[address] Smith Other postprocedural status history of radiofrequency ablation for back pain x 2 Status post laser lithotripsy of ureteral calculus (11/06/21) S/P ureteral stent placement (09/2021) subsequent removal H/O esophagogastroduodenoscopy (10/30/21) 10/2021 pedunculated polyps removed from first portion of duodenum, otherwise normal History of colonoscopy (10/30/21) 11/2021 diverticulosis of sigmoid colon and internal hemorrhoids, sessile polyps removed History of back surgery S/P tonsillectomy S/P appendectomy History of pilonidal cyst Family History Grandmother Heart disease Hypertension Grandfather Hypertension MATERNAL Diabetes Mother No problems noted. Father No problems noted. 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 Physical Exam Const: COMMON NORMALS: no acute distress, average body habitus, patient oriented x3, no limitations, healthy appearing, alert and well nourished EXAM LIMITATIONS: no altered mental status, no behavioral limitations and no physical limitations GENERAL APPEARANCE: cooperative and well kempt; not in distress HENMT: COMMON NORMALS: normocephalic and atraumatic HEAD & SCALP: normocephalic and atraumatic Lymph: LYMPHATIC: no lymphadenopathy noted Chest: COMMONS NORMALS: normal inspection of the chest and normal palpation of entire chest wall Resp: COMMON NORMALS: normal respiratory effort, No retractions and clear to auscultation bilaterally AUSCULTATION: clear to auscultation bilaterally Cardio: COMMON NORMALS: regular rate, regular rhythm, S1 normal heart sound present and S2 normal heart sound present RATE: regular rate RHYTHM: regular rhythm HEART SOUNDS: S1 normal heart sound present and S2 normal heart sound present GI: COMMON NORMALS: Normal to inspection, nondistended, normoactive bowel sounds present, Soft to palpation, non-tender and No hepatosplenomegaly present PALPATION: Yes Soft to palpation and Yes No hepatosplenomegaly present : COMMON NORMALS: Yes no CVA tenderness and Yes scrotum normal BLADDER/KIDNEY EXAM: Yes no CVA tenderness Back/Pelvis: COMMON NORMALS: no CVA tenderness and thoracic and lumbar spine normal to inspection THORACIC SPINE/UPPER BACK: Yes normal to inspection LUMBAR SPINE/LOWER BACK: Yes normal to inspection SACROILIAC JOINTS: Yes SI joints normal COCCYX: Coccyx tenderness present on direct palpation and other (bedsore stage III, no fistula, red, clear drainage) Neuro: COMMON NORMALS: patient oriented x3 SENSORIUM/ORIENTATION: Yes alert Psych: APPEARANCE: Yes well kempt Course Vital Signs: Vital signs: Vital Signs Temperature 98.6 F 09/08/25 15:43 Pulse Rate 87 09/08/25 15:43 Respiratory Rate 18 09/08/25 15:43 Blood Pressure 124/78 09/08/25 15:43 Pulse Oximetry 99 09/08/25 15:43 Oxygen Delivery Me thod Room Air 09/08/25 15:43 MDM - Skin/Abscess/Foreign Bdy Medicial Decision Making Patient is a 75-year-old gentleman with disability, ambulatory dysfunction, and detention facility obtaining rehab, which patient states is improved. He has multiple comorbidities. As far as with his sacral decubitus, stage III, he does not have a fistula, smell, abscess, or any additional concern to draining. This area needs to be Dry, silver AG wound care, and DuoDERM, as well as antibiotic coverage. Recommend going to wound care, for consultation, and possibly referral to a surgeon. Offloading by turning, and air mattress. As far as his anemia, patient has been running 11.8, 9, 9.4, 10.5 respectively the last 5 visits. Today, this is 10.7. He does have some mild leukocytosis of 14.5, with neutropenia. No other red flags are noted. Mild low potassium, metabolic acidosis with CO2 of 21. CRP is elevated at 45. Will advise increase protein/wound care. Medical Records I reviewed the patient's medical records. Lab Data I reviewed the patient's lab results. 09/08/25 16:12 09/08/25 16:12 Laboratory Results WBC 14.50 10^3/uL (3.29-11.43) H 09/08/25 16:12 RBC 3.89 10^6/uL (3.85-5.65) 09/08/25 16:12 Hgb 10.70 g/dL (11.27-16.99) L 09/08/25 16:12 Hct 33.5 % (37-53) L 09/08/25 16:12 MCV 86.1 fl (82-101) 09/08/25 16:12 MCH 27.5 pg (27-33) 09/08/25 16:12 MCHC 31.9 g/dL (30-55) 09/08/25 16:12 RDW 15.9 % (12.1-15.1) H 09/08/25 16:12 Plt Count 378 10^3/cmm (157-399) 09/08/25 16:12 MPV 10.2 fL (7.4-10.4) 09/08/25 16:12 Neut % (Auto) 70.7 % 09/08/25 16:12 Lymph % (Auto) 18.5 % 09/08/25 16:12 Mcpherson % (Auto) 6.5 % 09/08/25 16:12 Eos % (Auto) 3.4 % 09/08/25 16:12 Baso % (Auto) 0.6 % 09/08/25 16:12 Neut # (Auto) 10.26 10^3/uL (1.8-7.7) H 09/08/25 16:12 Lymph # (Auto) 2.7 10^3/uL (0.8-4.8) 09/08/25 16:12 Mcpherson # (Auto) 0.9 10^3/uL (0.2-0.9) 09/08/25 16:12 Eos # (Auto) 0.5 10^3/uL (0.0-0.8) 09/08/25 16:12 Baso # (Auto) 0.1 10^3/uL (0.0-0.1) 09/08/25 16:12 Nucleated RBC % (auto) 0 % 09/08/25 16:12 Nucleated RBCs # 0.0 /100WBC 09/08/25 16:12 Sodium 140 mmol/L (136-145) 09/08/25 16:12 Potassium 3.4 mmol/L (3.5-5.1) L 09/08/25 16:12 Chloride 102 mmol/L (98-107) 09/08/25 16:12 Carbon Dioxide 21 mmol/L (22-29) L 09/08/25 16:12 Anion Gap 20.4 (5-19) H 09/08/25 16:12 BUN 17 mg/dL (8-23) 09/08/25 16:12 Creatinine 1.2 mg/dL (0.7-1.2) 09/08/25 16:12 GFR Calculation Not Reportable 09/08/25 16:12 Glucose 133 mg/dL (65-115) H 09/08/25 16:12 Calculated Osmolality 293 mOsm/kg (285-295) 09/08/25 16:12 Calcium 9.2 mg/dL (8.5-10.5) 09/08/25 16:12 Total Bilirubin 0.5 mg/dL (0.15-1.2) 09/08/25 16:12 AST 10 U/L (0-40) 09/08/25 16:12 ALT 7 U/L (0-41) 09/08/25 16:12 Alkaline Phosphatase 113 U/L (40-130) 09/08/25 16:12 C-Reactive Protein 45.4 mg/L (0.0-4.9) H 09/08/25 16:12 Total Protein 6.9 g/dL (6.6-8.7) 09/08/25 16:12 Albumin 3.4 g/dL (3.5-5.2) L 09/08/25 16:12 Globulin 3.5 g/dL (1.3-4.6) 09/08/25 16:12 Digoxin 1.0 ng/mL (0.6-1.2) 09/08/25 16:12 No radiology studies performed this visit Discharge Plan Discharge Patient Disposition: Home Clinical Impression: Decubitus ulcer of coccygeal region, stage 3, Hypokalemia Condition: Stable Prescriptions: New cephalexin 500 mg capsule 500 mg PO TID 10 Days Qty: 30 0RF Lactobacillus acidophilus 25 million cell capsule 25 cell PO DAILY 30 Days Qty: 30 0RF No Action (DME) Dexcom G7 Sensor Device See Rx Instructions .Route Qty: 3 1RF Rx Instructions: As directed (DME) Dexcom G7 Religion Instructor Misc See Rx Instructions .Route Qty: 1 0RF Rx Instructions: As directed (DME) FreeStyle Jimi 2 [place] Misc See Rx Instructions .Route Qty: 1 0RF Rx Instructions: As directed ciprofloxacin HCl [Cipro] 500 mg tablet 500 mg PO .three times a week (DME) FreeStyle Jimi 2 Sensor Kit See Rx Instructions .ROUTE .MEDSUPPLY Qty: 6 1RF Rx Instructions: change every 14 days fluticasone propion-salmeterol [Wixela Inhub] 100-50 mcg/dose Blister With Device 1 inh INHALATION BID acetaminophen [Tylenol] 325 mg Tablet 650 mg PO Q6H PRN (Reason: Pain) furosemide 20 mg tablet 20 mg PO DAILY albuterol sulfate 90 mcg/actuation HFA aerosol inhaler 2 puff INHALATION Q4H PRN (Reason: Dyspnea) insulin glargine [Lantus Solostar U-100 Insulin] 100 unit/mL (3 mL) insulin pen 25 unit SUBCUT DAILY fentanyl 100 mcg/hr patch 72 hour 100 mcg transdermal .Q3D fosfomycin tromethamine 3 gram packet See Rx Instructions .ROUTE .COMPLEX Rx Instructions: 3 g orally on Thursday nystatin 100,000 unit/gram powder 1 applic TOPICAL TID simethicone 125 mg Capsule See Rx Instructions .ROUTE .COMPLEX PRN (Reason: Gas) Rx Instructions: Give 1-2 capsules by mouth four times daily after meals and at bedtime as needed for gas. No more than 4 in 24 hours. insulin lispro 100 unit/mL Insulin Pen 10 unit SUBCUT TIDWM polyethylene glycol 3350 [Miralax] 17 gram/dose Powder 17 g PO DAILY PRN (Reason: Constipation) ascorbic acid (vitamin C) [Vitamin C] 500 mg Tablet 1,000 mg PO DAILY methenamine hippurate 1 gram tablet 1 g PO BID MediHoney (honey) 80 % Gel 1 applic TOPICAL BID atorvastatin 80 mg tablet 80 mg PO DAILY hydrocodone-acetaminophen 7.5-325 mg tablet 1 tab PO BID PRN (Reason: Pain) digoxin 125 mcg (0.125 mg) tablet 125 mcg PO DAILY fluticasone propionate 50 mcg/actuation spray,suspension 1 spray INTRANASAL DAILY insulin lispro 100 unit/mL insulin pen See Rx Instructions .ROUTE .COMPLEX Rx Instructions: Injecr per sliding scale: bs<60, call MD. Bs 201-250=2 units, 251-300=4 units, 301-350=6 units, 351-400=8 units, bs greater than 400=8 units. Bs less than 60 or greater than 400x 3 consecutive times or symptomatic, call MD. metformin 500 mg tablet 500 mg PO DAILY ondansetron HCl 4 mg Tablet 4 mg PO TID PRN (Reason: Nausea And Vomiting) omeprazole 20 mg capsule,delayed release(DR/EC) 20 mg PO DAILY Discharge Orders: Discharge ED (Routine); Ordered 09/08/25 Ordered By: Daphne Meyer Referrals: Trisha Urena MD [Primary Care Provider, Family Practice] Discharge Diet: Diabetic Discharge Activity: Resume usual activity Patient Instructions: Opioid Safety, Pain Management, Patient Portal & Jamie Instructions, Decubitus Ulcers Activity Restrictions/Additional Instructions: - Wound care referral has been made. In the interim, follow your current wound care instructions -Offloading: Turn every 2 hours -Offloading: Obtain a air pressure bed for offloading. - Antibiotics were sent to the pharmacy: Cephalexin. Use 3 times a day. Take a probiotic or eat active culture yogurt to avoid infectious diarrhea. - Silvino ensure for wound healing drink daily - Return to ED with fever, chills, worsening decubitus ulcer. - Wound care will discuss any additional debridement, or surgery referral/additional management recommendation. Thank you for choosing [facility] for your healthcare needs today. You have been screened and evaluated and felt safe for discharge. Health conditions do change or evolve sometimes and as such it is important that you follow up with your Primary Doctor to be re checked, 3-5 days is a general good time frame for follow up. You are always welcome to return to the ED for re assessment if your symptoms are worsening or you have new concerns Print Language: Khmer Coding Level of Care Code ED Computer Technical Specialist for Say Muñoz
[2025-09-08 16:18] LABS: Hematocrit 33.5 % (37-53); Hemoglobin 10.70 g/dL (11.27-16.99); Mean Corpuscular HGB Conc 31.9 g/dL (30-55); Mean Corpuscular Hemoglobin 27.5 pg (27-33); Mean Corpuscular Volume 86.1 fl (82-101); Nucleated Red Blood Cells % 0 %; Platelet Count 378 10^3/cmm (157-399); Red Blood Count 3.89 10^6/uL (3.85-5.65); White Blood Count 14.50 10^3/uL (3.29-11.43)
--- NOTE | 2025-09-08 16:33 | PC.PHAR ---
Addendum entered by Madelyn Blake 09/08/25 16:45: Waiting for [facility] to fax med list. Nurse states pt takes [place] 7.5/325 tid prn and is currently wearing a Fentanyl patch Original Note: Pt is resident at [facility] B [place]
[2025-09-08 16:41] LABS: Alanine Aminotransferase 7 U/L (0-41); Albumin Level 3.4 g/dL (3.5-5.2); Alkaline Phosphatase 113 U/L (40-130); Anion Gap 20.4 (5-19); Aspartate Amino Transferase 10 U/L (0-40); Blood Urea Nitrogen 17 mg/dL (8-23); Calcium 9.2 mg/dL (8.5-10.5); Carbon Dioxide 21 mmol/L (22-29); Chloride 102 mmol/L (98-107); Globulin 3.5 g/dL (1.3-4.6); Glucose 133 mg/dL (65-115); Osmolality Calculated 293 mOsm/kg (285-295); Potassium 3.4 mmol/L (3.5-5.1); Sodium 140 mmol/L (136-145); Total Protein 6.9 g/dL (6.6-8.7)
[2025-09-08 16:42] LABS: Digoxin 1.0 ng/mL (0.6-1.2)
[2025-09-08] MEDS: HYDROcodone-acetaminophen 5-325 mg Tablet 1 TAB PO (16:54)
--- NOTE | 2025-09-11 10:41 | DCPLANNER ---
messaged wound care for er f/u
== END 2025-09-08 17:54 | disposition home or self-care (01) ==
PROVIDERS: Emergency Provider Physician Assistant; PCP Family Medicine
DX: L89.153 Pressure ulcer of sacral region, stage 3 (principal); E87.6 Hypokalemia; Z79.4 Long term (current) use of insulin; Z79.84 Long term (current) use of oral hypoglycemic drugs; Z85.46 Personal history of malignant neoplasm of prostate; I10 Essential (primary) hypertension; E11.40 Type 2 diabetes mellitus with diabetic neuropathy, unspecified
CPT/HCPCS: 36415; 80053; 80162; 85025; 86140; 99283; J9999

== ENCOUNTER 2025-09-16 17:11 | Emergency (ER) | payer OTHER, SELFPAY ==
--- OUTSIDE RECORDS SUMMARY | 2025-03-22 04:00 | XMS_ITS ---
Author Organization [facility] Address [address] [place] [address] Care Team Providers Care Evening Anchor Name Role Phone Vinnie Garcia DO Primary Care Provider John Andrews JR Unavailable [phone] Ila Fischer Unavailable [phone] REASON FOR VISIT 3m f/u w Christelle Encounters Encounter Location Date Provider Diagnosis [facility] [address] [place] [address] 03/22/2025 Ila Fischer Plan Of Treatment Next Appt Details Provider Name:Nury andrews, 10/19/2025 01:15:00 PM, [address], [address], [place], [address], Provider Name:Ila Godwin, 10/24/2025 01:00:00 PM, [address], [place], [address], History and Physical Notes * HPI (History [...] June 13, 2024. He was referred to [facility]. He was told he was not medically [...] nephrostomy tube exchange with interventional radiology at [facility]. He was to have CBC, CMP, PSA [...] * Raphael DEAL DDOB:1949 (75 yo M)Acc No.[id number]:03/22/2025 Progress Notes Patient: Raphael Meyer Provider: WALT Rod :1950 A ge:75 Y S ex:Male Date:03/22/2025 Address:[address], [place] [id number] Pcp:Vinnie Garcia, Subjective: * Chief Complaints: * [...] June 13, 2024. He was referred to [facility]. He was told he was not medically [...] nephrostomy tube exchange with interventional radiology at [facility]. He was to have CBC, CMP, PSA [...] * Electronic signature of WALT Wall on 09/16/2025 at 05:14 PM SLIDE FASTENER REPAIRER Sign off status: Pending * Provider: WALT Rod Date: 0 03/22/2025 Generated for Nai irwin/Cyndie/Yann on: 1 11/17/2024 05:14 PM SLIDE FASTENER REPAIRER
--- OUTSIDE RECORDS SUMMARY | 2025-06-28 08:10 | XMS_ITS ---
Author Organization [facility] Address [address] [place] [address] Care Team Providers Care Duct Layer Supervisor Name Role Phone Vinnie Garcia DO Primary Care Provider John Andrews JR Unavailable [phone] Ila Fischer Unavailable REASON FOR VISIT 3m f/u w CT abd,/pelv w/o, cbc, cmp. Encounters Encounter Location Date Provider Diagnosis [facility] [address] [place] [address] [address] [place] [address] 06/28/2025 Ila Fischer Plan Of Treatment Next Appt Details Provider Name:Nury andrews, 10/19/2025 01:15:00 PM, [address] [facility], [facility], [place], [address], Provider Name:Ila Godwin, 10/24/2025 01:00:00 PM, [address] [place] [address] Dr, [place] [address], [place], [address], Progress Notes * Raphael DEAL DDOB:1949 (75 yo M)Acc No.[id number]:06/28/2025 Progress Notes Patient: Raphael Meyer Provider: WALT Rod :1950 A ge:75 Y S ex:Male Date:06/28/2025 Address:[address], [place] Pcp:Vinnie Garcia DO Subjective: * Chief Complaints: * 3 m f/u w CT abd,/pelv w/o, cbc, cmp. Billing Information: * Procedure Codes: * Electronic signature of WALT Wall on 09/16/2025 at 05:16 PM SURVEY INTERVIEWER Sign off status: Pending * Provider: WALT Rod Date: 0 06/28/2025 Generated for Nai irwin/Cyndie/Yann on: 1 11/17/2024 05:16 PM SURVEY INTERVIEWER
--- OUTSIDE RECORDS SUMMARY | 2025-09-14 08:00 | XMS_ITS ---
Author Organization [facility] Address [address] [place] [address] Care Team Providers Care Supply Crib Attendant Name Role Phone Vinnie Garcia DO Primary Care Provider John Andrews JR Unavailable [phone] Nury Flores Unavailable [phone] Allergies Allergen (clinical drug ingredient) Drug/Non Drug Allergy documented on EMR Reaction Allergy Type Onset Date Status atorvastatin Lipitor Unknown Drug Allergy Acti ve pravastatin Pravachol Unknown Drug Allergy Activ e gemfibrozil Gemfibrozil Unknown Drug Allergy Act arsenio pravastatin Pravastatin Unknown Drug Allergy Act arsenio Results Component Value Reference Range Flag Notes CRP [id number] Reviewed date:09/15/2025 12:52:01 PM Interpretation: Performing Lab: Notes/Report: Diagnosis Description: Type 2 diabetes mellitus with diabetic chronic kidney disease CRP 3.38 .40-1.00 MG/DL HI CBC w\ Auto Diff 80012 Reviewed date:09/15/2025 12:52:00 PM Interpretation: Performing Lab: Notes/Report: Diagnosis Description: Type 2 diabetes mellitus with diabetic chronic kidney disease WBC 13.2 4.5-11.0 X10'3 HI RBC 4.22 4.50-5.90 X10'6 LOW Hgb 11.0 13.5-17.5 G/DL LOW Hct 36.9 41.0-53.0 % LOW MCV 87.4 80.0-100.0 FL MCH 26.1 27.0-31.0 PG LOW MCHC 29.8 31.0-37.0 G/DL LOW Platelet 521 150-400 X10'3 HI RDW-SD 51.3 35.0-49.0 FL HI RDW-CV 16.2 12.2-15.6 % HI MPV 10.5 9.2-12.0 FL Neutro Auto% 73.9 40.0-70.0 % HI Lymph Auto% 17.1 22.0-44.0 % LOW [place] Auto% 5.6 3.0-7.0 % Eos Auto% 2.1 2.0-4.0 % Baso Auto% 0.7 0.0-1.0 % Imm Gran% .6 .0-.4 % HI Neutro Abs 9.79 .80-7.70 HI Absolute Neutrophil Count 9790 NA Lymph Abs 2.27 .10-4.10 [place] Abs .74 .20-1.00 Eos Abs .28 .00-.40 Baso Abs .09 .00-.20 Imm Gran Abs .08 .00-.10 NRBC# .00 .00-.20 NRBC% .00 .00-.20 /100 int act WBC's Comprehensive Metabolic Pane l (CMP) [id number] Reviewed date:09/15/2025 12:52:00 PM Interpretation: Performing Lab: Notes/Report: Diagnosis Description: Type 2 diabetes mellitus with diabetic chronic kidney disease Glucose Serum 276 71-110 MG/DL HI Testing p erformed at [facility], [address] [place] [address] [place] [address]. CLIA ID#: [id number] BUN 19 7-21 MG/DL Creat 1.19 .57-1.17 MG/DL HI V-trtfzy-o-benzoquinone imine (NAPQI) is a metabolite of acetaminophen, [...] the potential for falsely depressed results. GFR 62.9 NA Calculation pe rformed from GFR calculator provided by the [employer]. Glomerular Filtration rate(GRF) is the best overall index of kidney function. Normal GFR varies according to age,sex, body size, and declines with age. The National Kid[employer] Foundation recommends using the CKD-EPI Creatinine Equation(2020) to estimate GFR. BUN/Creat Ratio 16.0 12.0-20.0 % Total Protein 7.0 5.8-8.0 G/DL Albumin 4.0 3.2-4.8 G/DL Globulin 3.0 2.3-3.5 G/DL Alb/Glob 1.3 0.8-2.2 Calcium 9.4 8.7-10.4 MG/DL Sodium 141 136-145 MMOL/L Potassium 4.0 3.5-5.1 MMOL/L Chloride 104 98-107 MMOL/L CO2 21.0 20.0-31.0 MMOL/L Anion Gap 20 5-15 HI Alk Phos 126 46-116 HI Bili Total .4 .3-1.2 MG/DL Use of this assay is not recommended for patients undergoing treatment with eltrombopag due to the potential for falsely elevated results. AST/SGOT 17 15-37 UNIT/L ALT/SGPT 14 12-78 UNIT/L Osmo Serum,Calculated 304 280-300 MOSM/KG HI REASON FOR VISIT [id number] 4 week - UTI Medications Medication SIG (Take, Route, Frequency, Duration) Notes Start Date End Date Status Galantamine Hydrobromide 4 MG Tablet 1 tablet with meals Orally Twice a day Not-Taking Linezolid Not-Taking insulin aspart, human 100 UNT/ML Injectable Solution [NovoLog] *Reorder from ASSET4 for eRx and Interaction Alerts* 09/25/2023 Not-Taking Melatonin 1 MG/4ML Liquid 4 mL at bedtime as needed Orally Once a day Not-Taking Losartan Potassium 50 MG Oral Tablet ORAL *Reorder from ASSET4 for eRx and Interaction Alerts* 07/23/2023 Not-Taking Gabapentin 400 MG Capsule 1 capsule Orally Once a day Not-Taking Fluconazole 200 MG Tablet 1 tablet Orally 03/23/2024 Not-Taking Fish Oil 1000 MG Capsule 1 capsule Orally Three times a day Not-Taking Fosfomycin Tromethamine 3 GM Packet as directed Orally 02/01/2025 Not-Takin g fluticasone propionate 0.1 MG/ACTUAT / salmeterol 0.05 MG/ACTUAT Dry Powder Inhaler INTRAPULMONARY *Reorder from ASSET4 for eRx and Interaction Alerts* 07/23/2023 Not-Taking Cranberry 250 MG Tablet as directed Orally Not-Takin g Colace 100 MG Capsule 1 capsule as needed Orally Once a day Not-Taking Dulcolax 10 MG Suppository 1 suppository as needed Rectal Once a day Not-Taking Diltiazem Hydrochloride 60 MG Oral Tablet ORAL *Reorder from [employer] for eRx and Interaction Alerts* 07/23/2023 Not-Taking Finasteride 5 MG Tablet Oral 07/23/2023 Not-Taking Coenzyme Q10 10 MG Capsule as directed Orally Not-Takin g cholecalciferol 1.25 MG Oral Tablet ORAL *Reorder from [employer] for eRx and Interaction Alerts* 07/23/2023 Not-Taking Amiodarone HCl 200 MG Tablet 1 tablet Orally Once a day Not-Taking Carvedilol 6.25 MG Tablet 1 tablet with food Orally Twice a day Not-Taking bisacodyl 10 MG Rectal Suppository [Dulcolax] RECTAL *Reorder from [employer] for eRx and Interaction Alerts* 07/23/2023 Not-Taking Nystatin Active Methenamine Hippurate 1 GM Tablet 1 tablet Orally Twice a day Active Ondansetron 4 MG Tablet Disintegrating 1 tablet on the tongue and allow to dissolve Orally Once a day Active Omeprazole 20 MG Capsule Delayed Release 1 capsule 1/2 to 1 hour before morning meal Orally Once a day Active Simethicone 125 MG Tablet Chewable 1 tablet after meals and at bedtime as needed Orally Four times a day Active Insulin Glargine 100 UNIT/ML Solution Pen-injector as directed Subcutaneous Active Lantus 100 UNIT/ML Solution as directed Subcutaneous Active Lactobacillus Active metFORMIN HCl 500 MG Tablet Oral 07/23/2023 Active [facility] Wound/Burn Dressing - Gel as directed Externally Active fentaNYL 100 MCG/HR Patch 72 Hour 1 patch to skin Transdermal Active Fluticasone Propionate (Inhal) 100 MCG/ACT Aerosol Powder Breath Activated 1 puff Inhalation Twice a day Active Fluticasone Propionate 50 MCG/ACT Suspension 1 spray in each nostril Nasally Twice a day Active HYDROcodone-Acetamin ophen 7.5-325 MG Tablet 1 tablet as needed Orally every 6 hrs Active Furosemide 20 MG Oral Tablet ORAL *Reorder from [employer] for eRx and Interaction Alerts* 07/23/2023 Active Cephalexin 500 MG Capsule 1 capsule Orally every 6 hrs Active Atorvastatin Calcium 80 MG Tablet 1 tablet Orally Once a day Active Digoxin 250 MCG Tablet 1 tablet Orally Once a day Active Cipro 500 MG Tablet 1 tablet Orally every 12 hrs Active Docusate Sodium 100 MG Capsule 1 capsule as needed Orally Once a day Active vitamin B12 1 MG Sublingual Tablet *Reorder from ASSET4 for eRx and Interaction Alerts* 07/23/2023 Not-Taking Acetaminophen 325 MG Tablet 1 tablet as needed Orally every 6 hrs Active Albuterol Sulfate 108 (90 Base) MCG/ACT Aerosol Powder Breath Activated 1 puff as needed Inhalation every 4 hrs Active Acidophilus Active Ascorbic Acid 500 MG Tablet Chewable 1 tablet Orally Once a day Active ubidecarenone 30 MG Oral Capsule ORAL *Reorder from ASSET4 for eRx and Interaction Alerts* 07/23/2023 Not-Taking Tylenol 325 MG Tablet 1 tablet as needed Orally every 6 hrs 03/23/2024 Not-Taking Tamsulosin HCl 0.4 MG Capsule Oral 07/23/2023 Not-Taking Tamsulosin HCl 0.4 MG Capsule 1 capsule Orally Once a day Not-Taking traMADol HCl 50 MG Tablet 1 tablet as needed Orally every 6 hours 03/23/2024 Not-Taking Pantoprazole Sodium 40 MG Tablet Delayed Release 1 tablet Orally BID 03/23/2024 Not-Taki ng oxyCODONE HCl 5 mg Not-Ta joel Potassium Chloride ER 10 MEQ Tablet Extended Release 1 tablet with food Orally once daily Not-Taking Rosuvastatin Calcium 40 MG Oral Tablet ORAL *Reorder from ASSET4 for eRx and Interaction Alerts* 07/23/2023 Not-Taking rivaroxaban 20 MG Oral Tablet [Xarelto] ORAL *Reorder from ASSET4 for eRx and Interaction Alerts* 07/23/2023 Not-Taking NovoLOG 100 UNIT/ML Solution as directed Injection Not-Taking mometasone furoate 0.05 MG/ACTUAT Metered Dose Nasal [place] *Reorder from ASSET4 for eRx and Interaction Alerts* 07/23/2023 Not-Taking Metoprolol Tartrate 50 MG Tablet 1 tablet with food Orally Twice a day Not-Taking Mometasone Furoate 50 MCG/ACT Suspension 4 sprays (2 sprays in each nostril) Nasally Once a day Not-Taking MiraLax 17 GM/SCOOP Powder 1 scoop mixed with 8 ounces of fluid Orally Once a day Not-Taking Melatonin 1 MG Oral Tablet ORAL *Reorder from ASSET4 for eRx and Interaction Alerts* 07/23/2023 Not-Taking Methocarbamol 750 MG Oral Tablet ORAL *Reorder from ASSET4 for eRx and Interaction Alerts* 07/23/2023 Not-Taking Social History Section Notes: Non smoker Problems Problem Type SNOMED Code ICD Code Onset Dates Problem Status W/U Status Risk Notes Problem Pressure injury of coccygeal region, 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 Vital Signs Temperature 98.2 degrees Fahrenheit 09/14/20 25 Blood pressure systolic 94 mm Hg 09/14/20 25 Blood pressure diastolic 60 mm Hg 025 Heart Rate 112 /min 09/14/2025 Height 68.00 in 09/14/2025 Weight 172.9 lbs 09/14/2025 BMI 26.29 kg/m2 09/14/2025 Oximetry 99 % 09/14/2025 Height-cm 172.72 cm 09/14/2025 Weight-kg 78.43 kg 09/14/2025 Encounters Encounter Location Date Provider Diagnosis [facility] Internal Medicine & Infectious Disease [address] [place] [id number] 09/14/2025 Nury Kebedepool Nephrostomy status Z93.6 ; Pressure injury of coccygeal region, stage 3 L89.153 ; Type 2 diabetes mellitus with 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 ; Obstructive pyelonephritis N11.1 and Chronic kidney disease, stage 3 unspecified N18.30 Assessments Encounter Date Diagnosis (ICD Code) Assessment Notes Treatment Notes Treatment Clinical Notes Section Notes 09/14/2025 Nephrostomy status (ICD-10 - Z93.6) 1. 75 yo white male with a history of T2DM, COPD, HTN, GERD, HLD, neuropathy, PTSD 2. History of bladder cancer s/p radiation therapy, ureteral stents, and nephrostomy tubes bilaterally since 03-09-24 3. , UTI/pyelonephri tis, marci has been isolated - resolved 4. s/p therapy for L3,4 discitis -2024. MRI here is negative for active discitis, he is asymptomatic, low probability for progressive, or recurrent discitis 5. Antibiotics; 09-14-25; With stage III coccyx left gluteal pressure ulceration skin and soft tissue infection, begin doxycycline p.o. twice daily and check MRI of the pelvis 09-14-25; 6. UTI prophylaxis; - Methenamine continue methenamine hippurate 1 g twice daily with vitamin C 500 mg twice daily (started 07-03-25) -(08-15-25); Cipro intermittent prophylaxis Thursday to regime once 14 day therapy completed Labs 07-03-25 UC Neg, UM WBC U 08-07-25; UC >100,000 K. pneumonia, UM WBC 286 08-08-25 W 14.0 CERTIFIED FIRST ASSISTANT 1.12 08-09-25 W 12.7 CERTIFIED FIRST ASSISTANT 1.08 08-10-25 W 11.7 CERTIFIED FIRST ASSISTANT 1.13 09-14-25; Check CBC, CMP, CRP in office [facility] for continued care of chronic kidney disease Follow up; in 4 weeks 09/14/2025 Pressure injury of coccygeal region, stage 3 (ICD-10 - L89.153) 1. 75 yo white male with a history of T2DM, COPD, HTN, GERD, HLD, neuropathy, PTSD 2. History of bladder cancer s/p radiation therapy, ureteral stents, and nephrostomy tubes bilaterally since 03-09-24 3. , UTI/pyelonephri tis, marci has been isolated - resolved 4. s/p therapy for L3,4 discitis -2024. MRI here is negative for active discitis, he is asymptomatic, low probability for progressive, or recurrent discitis 5. Antibiotics; 09-14-25; With stage III coccyx left gluteal pressure ulceration skin and soft tissue infection, begin doxycycline p.o. twice daily and check MRI of the pelvis 09-14-25; 6. UTI prophylaxis; - Methenamine continue methenamine hippurate 1 g twice daily with vitamin C 500 mg twice daily (started 07-03-25) -(08-15-25); Cipro intermittent prophylaxis Thursday to regime once 14 day therapy completed Labs 07-03-25 UC Neg, UM WBC U 08-07-25; UC >100,000 K. pneumonia, UM WBC 286 08-08-25 W 14.0 CERTIFIED FIRST ASSISTANT 1.12 08-09-25 W 12.7 CERTIFIED FIRST ASSISTANT 1.08 08-10-25 W 11.7 CERTIFIED FIRST ASSISTANT 1.13 09-14-25; Check CBC, CMP, CRP in office [facility] for continued care of chronic kidney disease Follow up; in 4 weeks 09/14/2025 Type 2 diabetes mellitus with diabetic chronic kidney disease (ICD-10 - E11.22) 1. 75 yo white male with a history of T2DM, COPD, HTN, GERD, HLD, neuropathy, PTSD 2. History of bladder cancer s/p radiation therapy, ureteral stents, and nephrostomy tubes bilaterally since 03-09-24 3. , UTI/pyelonephri tis, marci has been isolated - resolved 4. s/p therapy for L3,4 discitis . MRI here is negative for active discitis, he is asymptomatic, low probability for progressive, or recurrent discitis 5. Antibiotics; 09-14-25; With stage III coccyx left gluteal pressure ulceration skin and soft tissue infection, begin doxycycline p.o. twice daily and check MRI of the pelvis 09-14-25; 6. UTI prophylaxis; - Methenamine continue methenamine hippurate 1 g twice daily with vitamin C 500 mg twice daily (started 07-03-25) -(08-15-25); Cipro intermittent prophylaxis Thursday to regime once 14 day therapy completed Labs 07-03-25 UC Neg, UM WBC U 12 08-07-25; UC >100,000 K. pneumonia, UM WBC 286 08-08-25 W 14.0 CERTIFIED FIRST ASSISTANT 1.12 08-09-25 W 12.7 CERTIFIED FIRST ASSISTANT 1.08 08-10-25 W 11.7 CERTIFIED FIRST ASSISTANT 1.13 09-14-25; Check CBC, CMP, CRP in office [facility] for continued care of chronic kidney disease Follow up; in 4 weeks 09/14/2025 Obstructive pyelonephritis (ICD-10 - N11.1) 1. 75 yo white male with a history of T2DM, COPD, HTN, GERD, HLD, neuropathy, PTSD 2. History of bladder cancer s/p radiation therapy, ureteral stents, and nephrostomy tubes bilaterally since 03-09-24 3. , UTI/pyelonephri tis, marci has been isolated - resolved 4. s/p therapy for L3,4 discitis . MRI here is negative for active discitis, he is asymptomatic, low probability for progressive, or recurrent discitis 5. Antibiotics; 09-14-25; With stage III coccyx left gluteal pressure ulceration skin and soft tissue infection, begin doxycycline p.o. twice daily and check MRI of the pelvis 09-14-25; 6. UTI prophylaxis; - Methenamine continue methenamine hippurate 1 g twice daily with vitamin C 500 mg twice daily (started 07-03-25) -(08-15-25); Cipro intermittent prophylaxis Thursday to regime once 14 day therapy completed Labs 07-03-25 UC Neg, UM WBC U 12 08-07-25; UC >100,000 K. pneumonia, UM WBC 286 08-08-25 W 14.0 CERTIFIED FIRST ASSISTANT 1.12 08-09-25 W 12.7 CERTIFIED FIRST ASSISTANT 1.08 08-10-25 W 11.7 CERTIFIED FIRST ASSISTANT 1.13 09-14-25; Check CBC, CMP, CRP in office [facility] for continued care of chronic kidney disease Follow up; in 4 weeks 09/14/2025 Chronic kidney disease, stage 3 unspecified (ICD-10 - N18.30) 1. 75 yo white male with a history of T2DM, COPD, HTN, GERD, HLD, neuropathy, PTSD 2. History of bladder cancer s/p radiation therapy, ureteral stents, and nephrostomy tubes bilaterally since 03-09-24 3. , UTI/pyelonephri tis, marci has been isolated - resolved 4. s/p therapy for L3,4 discitis -2024. MRI here is negative for active discitis, he is asymptomatic, low probability for progressive, or recurrent discitis 5. Antibiotics; 09-14-25; With stage III coccyx left gluteal pressure ulceration skin and soft tissue infection, begin doxycycline p.o. twice daily and check MRI of the pelvis 09-14-25; 6. UTI prophylaxis; - Methenamine continue methenamine hippurate 1 g twice daily with vitamin C 500 mg twice daily (started 07-03-25) -(08-15-25); Cipro intermittent prophylaxis Thursday to regime once 14 day therapy completed Labs 07-03-25 UC Neg, UM WBC U 12 08-07-25; UC >100,000 K. pneumonia, UM WBC 286 08-08-25 W 14.0 CERTIFIED FIRST ASSISTANT 1.12 08-09-25 W 12.7 CERTIFIED FIRST ASSISTANT 1.08 08-10-25 W 11.7 CERTIFIED FIRST ASSISTANT 1.13 09-14-25; Check CBC, CMP, CRP in office [facility] for continued care of chronic kidney disease Follow up; in 4 weeks 09/14/2025 Other Hospital records reviewed, medication list reviewed and reconciled 1. 75 yo white male with a history of T2DM, COPD, HTN, GERD, HLD, neuropathy, PTSD 2. History of bladder cancer s/p radiation therapy, ureteral stents, and nephrostomy tubes bilaterally since 03-09-24 3. , UTI/pyelonephri tis, marci has been isolated - resolved 4. s/p therapy for L3,4 discitis -2024. MRI here is negative for active discitis, he is asymptomatic, low probability for progressive, or recurrent discitis 5. Antibiotics; 09-14-25; With stage III coccyx left gluteal pressure ulceration skin and soft tissue infection, begin doxycycline p.o. twice daily and check MRI of the pelvis 09-14-25; 6. UTI prophylaxis; - Methenamine continue methenamine hippurate 1 g twice daily with vitamin C 500 mg twice daily (started 07-03-25) -(08-15-25); Cipro intermittent prophylaxis Thursday to regime once 14 day therapy completed Labs 07-03-25 UC Neg, UM WBC U 12 08-07-25; UC >100,000 K. pneumonia, UM WBC 286 08-08-25 W 14.0 CERTIFIED FIRST ASSISTANT 1.12 08-09-25 W 12.7 CERTIFIED FIRST ASSISTANT 1.08 08-10-25 W 11.7 CERTIFIED FIRST ASSISTANT 1.13 09-14-25; Check CBC, CMP, CRP in office [facility] for continued care of chronic kidney disease Follow up; in 4 weeks Plan Of Treatment Treatment Notes Assessment Notes Other Hospital records rev iewed, medication list reviewed and reconciled Pending Test Test Name Order Date MRI Pelvis w/ + w/o [id number] Next Appt Details Follow Up: 4 Weeks, Reason: pressure wound/UTI f/u Provider Name:Nury andrews, 10/19/2025 01:15:00 PM, [address] [place] [address] Drive, [place], [phone], Provider Name:Ila Godwin, 10/24/2025 01:00:00 PM, [address], [place], [phone], History and Physical Notes * Examination Category Sub-Category Detail Notes Category Not es General Examination GENERAL APPEARANCE: alert, w ell hydrated, in no distress HEAD: normocephalic, atrau matic HEART: regular rate and rhy thm, S1, S2 normal, no heaves, lifts or gallops. PMI at/near 5th left intercostal space at anterior axillary line CHEST: atraumatic, no defor mities, no pain to palpation LUNGS: clear anteriorly and posteriorly ABDOMEN: bowel sounds present , soft, nontender, nondistended NEUROLOGIC: alert and oriented, cognitive exam grossly normal, bilateral nephrostomy tubes appear to be wnl SKIN: Stage III pressure u lceration overlying the left gluteal coccyx region, some purulence noted Progress Notes * Raphael DEAL DDOB:1949 (75 yo M)Acc No.[id number]:09/14/2025 Progress Notes Patient: Felisa Raphael petit Provider: Ly Flores APRN :1950 A ge:75 Y S ex:Male Date:09/14/2025 Address:[facility] [address], [place], [id number] Pcp:Vinnie Garcia DO Check Out:03:07 PM PER DIEM INTERPRETER Subjective: * Chief Complaints: * 6 [id number] 4 week - UTI * HPI: [place] santos Note: U 07-03-25-seen by Mark VIZCAINO; Jennifer he patient is a 75 yo white male with a history of T2DM, COPD, HTN, GERD, HLD, neuropathy, PTSD. We have seen in the past for recurrent complicated UTI's. However he has not been compliant with f/u or with prophylaxis. Right ureteral stent exchange on March 08, 2024. This was secondary to end-stage contracted bladder and right hydronephrosis. He has been seen, and scheduled to be seen at [facility]. for ileal conduit and urinary diversion. He had placement of nephrostomy tube 03-09-24. History of ESBL E. coli, and candidemia- 03-09-24; BC with marci tropicalis. Also treated in the past for discitis at the L3-4 level.\line 12-21-24; Exchange of bilateral percutaneous nephrostomy tubes. 12-22-24; MRI progressive discitis L3,4. Complicated UTI resolved 02-01-25. Discitis, resolved 02-01-25. He was lost to OP f/u bilateral nephrostomy tubes. Seen at outside facility where MRI L-spine show signs concerning for lumbar discitis. His MRI here at [facility] was negative for active discitis. He was having severe flank pain, Concern for UTI/pyelonephritis possibly from Marci. He was treated with antifungals and Nephrostomy tubes were exchanged. Discharged back to nursing facility in [place]. He is asymptomatic today. Daughter is present with patient. 07-17-25;finished antibiotics, but no further antibiotics 08-15-25; HFU - Patient was readmitted on 08-07-25 with metabolic encephalopathy from Referred to [facility] from [place]. He was found to have a Klebsiella UTI, he had his nephrostomy tubes exchanged during his hospital stay. He was given Cipro p.o. He is asymptomatic today. Clear yellow urine draining in nephrostomy bags. Daughter is present with patient she would like a referral to see Dr. Nova for Nephrology evga. 09-14-25; He will see a [facility] from [facility] they will go to his facility. He is asymptomatic today nephrostomy tubes intact. He has a pressure ulceration, they are using [facility] and wound care comes to the facility. * ROS: G eneral - Multi System: Constitutional D enies, fever, chills, weakness, fatigue, poor appetite, unexplained weight loss. E ar, Nose, Mouth, Throat D enies, ear pain, sore throat, sinus congestion, nasal drainage. C ardiovascular D enies any recent chest pain, palpitations or syncope. R espiratory D enies any shortness of breath, cough, or hemoptysis. G astrointestinal D enies heartburn, constipation, diarrhea, nausea, blood in stools, or abdominal pain. G enitourinary D enies dysuria, urinary frequency, or hematuria. M usculoskeletal R EPORTS sores on his tail bone but unable to get out of chair. . I ntegumentary D enies any rashes, bruising, or skin changes. * Medical History: Osteomyelitis Muscle weakness Paroxysmal a-fib Acute pyelonephritis Hydronephrosis w/ urethral stricture Pressure ulcer of right buttock HTN Chronic kidney disease Heart faliure Nonrheumatic mitral valve insufficiency Other hypertrophic cardiomyopathy COPD Obstructive Sleep apnea Alzheimer's Dementia Psychotic disturbance Mood disturbance Anxiety Diabetes Type 2 Diabetic Neuropathy Anemia Insomnia Obesity Neuromuscular dysfunction of bladder BPH w/ LUTS GERD Medical History Verified * Surgical History: Unable to obtain Surgical History verified. * Hospitalization/Major Diagno stic Procedure: No Hospitalization Documented. Hospitalization Verified. * Family History: F ather: . M other: alive, stroke, Lupus, Heart attack. M aternal Grand Mother: MGRPRN - Maternal Grandmother: :: Ischemic heart disease,,known absent , :: Cancer,,known absent .?Family History Verified.. * Social History: Social History Verified. N on smoker. * Medications: T akingAlbuterol Sulfate 108 (90 Base) MCG/ACT Aerosol Powder Breath Activated 1 puff as needed Inhalation every 4 hrs Atorvastatin Calcium 80 MG Tablet 1 tablet Orally Once a day Digoxin 250 MCG Tablet 1 tablet Orally Once a day fentaNYL 100 MCG/HR Patch 72 Hour 1 patch to skin Transdermal Fluticasone Propionate 50 MCG/ACT Suspension 1 spray in each nostril Nasally Twice a day Fluticasone Propionate (Inhal) 100 MCG/ACT Aerosol Powder Breath Activated 1 puff Inhalation Twice a day Furosemide 20 MG Oral Tablet ORAL , Notes to Pharmacist: *Reorder from [employer] for eRx and Interaction Alerts*HYDROcodone-Acetaminophen 7.5-325 MG Tablet 1 tablet as needed Orally every 6 hrs Insulin Glargine 100 UNIT/ML Solution Pen-injector as directed Subcutaneous metFORMIN HCl 500 MG Tablet Oral Acetaminophen 325 MG Tablet 1 tablet as needed Orally every 6 hrs Ascorbic Acid 500 MG Tablet Chewable 1 tablet Orally Once a day Cephalexin 500 MG Capsule 1 capsule Orally every 6 hrs Cipro 500 MG Tablet 1 tablet Orally every 12 hrs Docusate Sodium 100 MG Capsule 1 capsule as needed Orally Once a day Lactobacillus Lantus 100 UNIT/ML Solution as directed Subcutaneous [facility] Wound/Burn Dressing - Gel as directed Externally Methenamine Hippurate 1 GM Tablet 1 tablet Orally Twice a day Nystatin Omeprazole 20 MG Capsule Delayed Release 1 capsule 1/2 to 1 hour before morning meal Orally Once a day Ondansetron 4 MG Tablet Disintegrating 1 tablet on the tongue and allow to dissolve Orally Once a day Simethicone 125 MG Tablet Chewable 1 tablet after meals and at bedtime as needed Orally Four times a day Acidophilus Taking Albuterol Sulfate 108 (90 Base) MCG/ACT Aerosol Powder Breath Activated 1 puff as needed Inhalation every 4 hrs Taking Atorvastatin Calcium 80 MG Tablet 1 tablet Orally Once a day Taking Digoxin 250 MCG Tablet 1 tablet Orally Once a day Taking fentaNYL 100 MCG/HR Patch 72 Hour 1 patch to skin Transdermal Taking Fluticasone Propionate 50 MCG/ACT Suspension 1 spray in each nostril Nasally Twice a day Taking Fluticasone Propionate (Inhal) 100 MCG/ACT Aerosol Powder Breath Activated 1 puff Inhalation Twice a day Taking Furosemide 20 MG Oral Tablet ORAL , Notes to Pharmacist: *[facility]*Taking HYDROcodone-Acetaminophen 7.5-325 MG Tablet 1 tablet as needed Orally every 6 hrs Taking Insulin Glargine 100 UNIT/ML Solution Pen-injector as directed Subcutaneous Taking metFORMIN HCl 500 MG Tablet Oral Taking Acetaminophen 325 MG Tablet 1 tablet as needed Orally every 6 hrs Taking Ascorbic Acid 500 MG Tablet Chewable 1 tablet Orally Once a day Taking Cephalexin 500 MG Capsule 1 capsule Orally every 6 hrs Taking Cipro 500 MG Tablet 1 tablet Orally every 12 hrs Taking Docusate Sodium 100 MG Capsule 1 capsule as needed Orally Once a day Taking Lactobacillus Taking Lantus 100 UNIT/ML Solution as directed Subcutaneous Taking [facility] Wound/Burn Dressing - Gel as directed Externally Taking Methenamine Hippurate 1 GM Tablet 1 tablet Orally Twice a day Taking Nystatin Taking Omeprazole 20 MG Capsule Delayed Release 1 capsule 1/2 to 1 hour before morning meal Orally Once a day Taking Ondansetron 4 MG Tablet Disintegrating 1 tablet on the tongue and allow to dissolve Orally Once a day Taking Simethicone 125 MG Tablet Chewable 1 tablet after meals and at bedtime as needed Orally Four times a day Taking Acidophilus Not- TakingAmiodarone HCl 200 MG Tablet 1 tablet Orally Once a day bisacodyl 10 MG Rectal Suppository [Dulcolax] RECTAL , Notes to Pharmacist: *Reorder from [facility] for eRx and Interaction Alerts*Carvedilol 6.25 MG Tablet 1 tablet with food Orally Twice a day cholecalciferol 1.25 MG Oral Tablet ORAL , Notes to Pharmacist: *Reorder from [facility] for eRx and Interaction Alerts*Coenzyme Q10 10 MG Capsule as directed Orally Colace 100 MG Capsule 1 capsule as needed Orally Once a day Cranberry 250 MG Tablet as directed Orally Diltiazem Hydrochloride 60 MG Oral Tablet ORAL , Notes to Pharmacist: *Reorder from [facility] for eRx and Interaction Alerts*Dulcolax 10 MG Suppository 1 suppository as needed Rectal Once a day Finasteride 5 MG Tablet Oral Fish Oil 1000 MG Capsule 1 capsule Orally Three times a day Fluconazole 200 MG Tablet 1 tablet Orally fluticasone propionate 0.1 MG/ACTUAT / salmeterol 0.05 MG/ACTUAT Dry Powder Inhaler INTRAPULMONARY , Notes to Pharmacist: *Reorder from [facility] for eRx and Interaction Alerts*Fosfomycin Tromethamine 3 GM Packet as directed Orally Gabapentin 400 MG Capsule 1 capsule Orally Once a day Galantamine Hydrobromide 4 MG Tablet 1 tablet with meals Orally Twice a day insulin aspart, human 100 UNT/ML Injectable Solution [NovoLog] , stop date 11/03/2027, Notes to Pharmacist: *Reorder from [facility] for eRx and Interaction Alerts*Linezolid Losartan Potassium 50 MG Oral Tablet ORAL , Notes to Pharmacist: *Reorder from [facility] for eRx and Interaction Alerts*Melatonin 1 MG/4ML Liquid 4 mL at bedtime as needed Orally Once a day Melatonin 1 MG Oral Tablet ORAL , Notes to Pharmacist: *Reorder from [facility] for eRx and Interaction Alerts*Methocarbamol 750 MG Oral Tablet ORAL , Notes to Pharmacist: *Reorder from [facility] for eRx and Interaction Alerts*Metoprolol Tartrate 50 MG Tablet 1 tablet with food Orally Twice a day MiraLax 17 GM/SCOOP Powder 1 scoop mixed with 8 ounces of fluid Orally Once a day Mometasone Furoate 50 MCG/ACT Suspension 4 sprays (2 sprays in each nostril) Nasally Once a day mometasone furoate 0.05 MG/ACTUAT Metered Dose Nasal [place] , Notes to Pharmacist: *Reorder from [facility] for eRx and Interaction Alerts*NovoLOG 100 UNIT/ML Solution as directed Injection oxyCODONE HCl , Notes to Pharmacist: 5 mgPantoprazole Sodium 40 MG Tablet Delayed Release 1 tablet Orally BID Potassium Chloride ER 10 MEQ Tablet Extended Release 1 tablet with food Orally once daily rivaroxaban 20 MG Oral Tablet [Xarelto] ORAL , Notes to Pharmacist: *Reorder from [facility] for eRx and Interaction Alerts*Rosuvastatin Calcium 40 MG Oral Tablet ORAL , Notes to Pharmacist: *Reorder from [facility] for eRx and Interaction Alerts*Tamsulosin HCl 0.4 MG Capsule 1 capsule Orally Once a day Tamsulosin HCl 0.4 MG Capsule Oral traMADol HCl 50 MG Tablet 1 tablet as needed Orally every 6 hours Tylenol 325 MG Tablet 1 tablet as needed Orally every 6 hrs ubidecarenone 30 MG Oral Capsule ORAL , Notes to Pharmacist: *Reorder from [facility] for eRx and Interaction Alerts*vitamin B12 1 MG Sublingual Tablet , Notes to Pharmacist: *Reorder from [facility] for eRx and Interaction Alerts*Medication List reviewed and reconciled with the patientNot-Taking Amiodarone HCl 200 MG Tablet 1 tablet Orally Once a day Not-Taking bisacodyl 10 MG Rectal Suppository [Dulcolax] RECTAL , Notes to Pharmacist: *Reorder from [facility] for eRx and Interaction Alerts*Not-Taking Carvedilol 6.25 MG Tablet 1 tablet with food Orally Twice a day Not-Taking cholecalciferol 1.25 MG Oral Tablet ORAL , Notes to Pharmacist: *Reorder from [facility] for eRx and Interaction Alerts*Not-Taking Coenzyme Q10 10 MG Capsule as directed Orally Not-Taking Colace 100 MG Capsule 1 capsule as needed Orally Once a day Not-Taking Cranberry 250 MG Tablet as directed Orally Not-Taking Diltiazem Hydrochloride 60 MG Oral Tablet ORAL , Notes to Pharmacist: *Reorder from [facility] for eRx and Interaction Alerts*Not-Taking Dulcolax 10 MG Suppository 1 suppository as needed Rectal Once a day Not-Taking Finasteride 5 MG Tablet Oral Not-Taking Fish Oil 1000 MG Capsule 1 capsule Orally Three times a day Not-Taking Fluconazole 200 MG Tablet 1 tablet Orally Not-Taking fluticasone propionate 0.1 MG/ACTUAT / salmeterol 0.05 MG/ACTUAT Dry Powder Inhaler INTRAPULMONARY , Notes to Pharmacist: *Reorder from [facility] for eRx and Interaction Alerts*Not-Taking Fosfomycin Tromethamine 3 GM Packet as directed Orally Not-Taking Gabapentin 400 MG Capsule 1 capsule Orally Once a day Not-Taking Galantamine Hydrobromide 4 MG Tablet 1 tablet with meals Orally Twice a day Not-Taking insulin aspart, human 100 UNT/ML Injectable Solution [NovoLog] , stop date 11/03/2027, Notes to Pharmacist: *Reorder from [facility] for eRx and Interaction Alerts*Not-Taking Linezolid Not-Taking Losartan Potassium 50 MG Oral Tablet ORAL , Notes to Pharmacist: *Reorder from [facility] for eRx and Interaction Alerts*Not-Taking Melatonin 1 MG/4ML Liquid 4 mL at bedtime as needed Orally Once a day Not-Taking Melatonin 1 MG Oral Tablet ORAL , Notes to Pharmacist: *Reorder from [facility] for eRx and Interaction Alerts*Not-Taking Methocarbamol 750 MG Oral Tablet ORAL , Notes to Pharmacist: *Reorder from [facility] for eRx and Interaction Alerts*Not-Taking Metoprolol Tartrate 50 MG Tablet 1 tablet with food Orally Twice a day Not-Taking MiraLax 17 GM/SCOOP Powder 1 scoop mixed with 8 ounces of fluid Orally Once a day Not-Taking Mometasone Furoate 50 MCG/ACT Suspension 4 sprays (2 sprays in each nostril) Nasally Once a day Not-Taking mometasone furoate 0.05 MG/ACTUAT Metered Dose Nasal [place] , Notes to Pharmacist: *Reorder from [facility] for eRx and Interaction Alerts*Not-Taking NovoLOG 100 UNIT/ML Solution as directed Injection Not-Taking oxyCODONE HCl , Notes to Pharmacist: 5 mgNot-Taking Pantoprazole Sodium 40 MG Tablet Delayed Release 1 tablet Orally BID Not-Taking Potassium Chloride ER 10 MEQ Tablet Extended Release 1 tablet with food Orally once daily Not-Taking rivaroxaban 20 MG Oral Tablet [Xarelto] ORAL , Notes to Pharmacist: *Reorder from [facility] for eRx and Interaction Alerts*Not-Taking Rosuvastatin Calcium 40 MG Oral Tablet ORAL , Notes to Pharmacist: *Reorder from [facility] for eRx and Interaction Alerts*Not- Taking Tamsulosin HCl 0.4 MG Capsule 1 capsule Orally Once a day Not-Taking Tamsulosin HCl 0.4 MG Capsule Oral Not-Taking traMADol HCl 50 MG Tablet 1 tablet as needed Orally every 6 hours Not-Taking Tylenol 325 MG Tablet 1 tablet as needed Orally every 6 hrs Not-Taking ubidecarenone 30 MG Oral Capsule ORAL , Notes to Pharmacist: *[facility]*Not-Taking vitamin B12 1 MG Sublingual Tablet , Notes to Pharmacist: *[facility]*Medication List reviewed and reconciled with the patient * Allergies: G emfibrozilLipitorPravacholPravastatinyesAllergies Verified. Objective: * Vitals: H t: 68.00 in, Wt:172.9lbs, Wt-k.43 kg, BMI:26.29Index, Temp:98.2F, BP:94/60mm Hg, HR:112/min, Oxygen sat %:99%, Ht-cm: 172.72 cm. * Examination: G eneral Examination: GENERAL APPEARANCE: a lert, well hydrated, in no distress.? HEAD: n ormocephalic, atraumatic. SKIN: S tage III pressure ulceration overlying the left gluteal coccyx region, some purulence noted. HEART: r egular rate and rhythm, S1, S2 normal, no heaves, lifts or gallops. PMI at/near 5th left intercostal space at anterior axillary line. LUNGS: c lear anteriorly and posteriorly. CHEST: a traumatic, no deformities, no pain to palpation.? ABDOMEN: b owel sounds present, soft, nontender, nondistended. NEUROLOGIC: a lert and oriented, c ognitive exam grossly normal, bilateral nephrostomy tubes appear to be wnl. Assessment: * Assessment: 1. P ressure injury of coccygeal region, stage 3 - L89.153 (Primary) 2 . N ephrostomy status - Z93.6 3 . 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 O bstructive pyelonephritis - N11.1 5 . C hronic kidney disease, stage 3 unspecified - N18.30 1 . 75 yo white male with a history of T2DM, COPD, HTN, GERD, HLD, neuropathy, PTSD 2. History of bladder cancer s/p radiation therapy, ureteral stents, and nephrostomy tubes bilaterally since 03-09-24 3 . , UTI/pyelonephritis, marci has been isolated - resolved 4 . s/p therapy for L3,4 discitis . MRI here is negative for active discitis, he is asymptomatic, low probability for progressive, or recurrent discitis 5. Antibiotics; 09-14-25; With stage III coccyx left gluteal pressure ulceration skin and soft tissue infection, begin doxycycline p.o. twice daily and check MRI of the pelvis 09-14-25; 6. UTI prophylaxis; - Methenamine c ontinue methenamine hippurate 1 g twice daily with vitamin C 500 mg twice daily (started 07-03-25) -(08-15-25); Cipro intermittent prophylaxis Thursday to regime once 14 day therapy completed Labs 07-03-25 UC Neg, UM WBC U 12 08-07-25; UC >100,000 K. pneumonia, UM WBC 286 08-08-25 W 14.0 CERTIFIED FIRST ASSISTANT 1.12 08-09-25 W 12.7 CERTIFIED FIRST ASSISTANT 1.08 08-10-25 W 11.7 CERTIFIED FIRST ASSISTANT 1.13 09-14-25; Check CBC, CMP, CRP in office [facility] for continued care of chronic kidney disease Follow up; in 4 weeks Plan: * Treatment: 2. 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 O thers Notes: Hospital records reviewed, medication list reviewed and reconciled * Procedure Codes: 3 078F DIAST BP < 80 MM [id number] SYST BP LT 130 MM HG * Follow Up: 4 Weeks (Reason: pressure wound/UTI f/u) * Billing Information: * Visit Code: 64142 Office Visit, Est Pt., Level 4. * Procedure Codes: 3078F DIAST BP < 80 MM HG. 3074F SYST BP LT 130 MM HG. Care Plan Details* Images * [id number] * DIEM INTERPRETER Sign off status: Completed true * Provider: Ly Flores APRN Date: 11/15/2024 Generated for Nai irwin/Cyndie/Abdonitting on: 11/17/2024 05:14 PM PER DIEM INTERPRETER
--- OUTSIDE RECORDS SUMMARY | 2025-09-16 17:14 | XMS_ITS | Continuity of Care Document ---
Author Organization [facility] Tejinder, Kayla, [facility] ([facility]) Address [address] [place] [address] Assessment No assessment recorded. Plan of Treatment [...] Modified By Organization Details Last Modified Time 06/22/2025 [id number] patient evaluate d in ER as PICC line was occluded. Replaced and working properly now. [email or web address] Not available 06/28/2025 12:25:11 Reason for Referral None Reported. Problems Name Problem SNOMED Code Status Onset Date Resolution Date Notes Provider Name and Address Organization Details Recorded Time Hospital inpatient stay within past 30 days 1884446231044 Active 2022 [facility] 3 12:23:24 Spinal stenosis of lumbar region 55654368 Active 2022 [facility] 3 12:23:25 Atrial fibrillati on 60548191 Active 2022 [facility] 3 12:23:26 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 0733911378012 09 Active 2022 [facility] 3 12:23:27 Neurogenic urinary bladder 985001366 Active 2022 [facility], [facility] 3 12:23:29 Essential hypertensi on 07310639 Active 2022 [facility], [facility] 3 12:23:30 Difficulty sleeping 758961144 Active 2022 [facility], [facility] 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 3 12:10:22 Uncontroll ed type 2 diabetes mellitus 342744769 Active 2022 [facility], [facility] 3 12:10:23 Acute urinary tract infection 707666993 Active 2022 [facility], [facility] 3 12:10:26 Sepsis 68911482 Active 2022 [facility], [facility] 3 15:15:01 Metabolic encephalop athy 51605368 Active 2022 [facility], [facility] 3 15:15:02 Pneumonia 910826997 Active 2022 [facility], [facility] 3 15:15:02 Acute pyelonephr itis 60426346 Active 2022 [facility], [facility] 3 15:15:04 Anemia due to blood loss 164258393 Active 2022 [facility], [facility] 3 15:15:06 Need for personal care assistance 1070023929512 9106 [facility] 4 13:09:05 Chronic pain 26292212 Active 2023 [facility], [facility], LoretoCSandhya 4 15:47:08 Osteomyeli tis 00392235 [facility] 12:18:14 Lumbar discitis 619242435 [facility]a 4 12:18:29 Urinary tract infectious disease 44100841 [facility] José ManuelLSandhyaCSandhya 5 15:46:49 Problem Notes None recorded. Medical Equipment None [...] sent to pharmacy . *dose increase *; 36110; Recorded 01/22/20 22 12:43PM by Jackeline Todd [...] rate Respiratory rate Body temperature Oxygen saturation Systolic And Diastolic Provider Name and Address Organization Details Last Updated DateTime 5 172.72 cm 26.6 kg/m2 54371.6 6 g 77 /min 16 /min 98 [degF] 97 % 132/66 mm[Hg] [facility], [facility] 5 12:44:14 Social History None recorded. Functional Status None recorded. Mental Status None recorded. Family History Nothing Reported. Medical History No medical history recorded. Immunizations Vaccine Type Date Status Note Provider Nam e and Address Organization Details Recorded Time zoster live 9 completed Not Available [facility] 09/11/2025 14:18:29 pneumococcal polysaccharide PPV23 1 completed Not Available [facility] 09/11/2025 14:18:29 pneumococcal polysaccharide PPV23 4 completed Not Available [facility] 09/11/2025 14:18:29 Tdap 4 completed Not Available [facility] 09/11/2025 14:18:29 Pneumococcal conjugate PCV 13 5 completed Not Available [facility] 09/11/2025 14:18:29 pneumococcal polysaccharide PPV23 6 completed Not Available [facility] 09/11/2025 14:18:29 Tdap 2 completed Not Available [facility] 09/11/2025 14:18:29 zoster recombinant 2 completed Not Available [facility] 09/11/2025 14:18:29 zoster recombinant 3 completed Not Available [facility] 09/11/2025 14:18:29 Influenza, split virus, quadrivalent, PF 3 completed Not Available [facility] 09/11/2025 14:18:29 Influenza, split virus, trivalent, preservative 0 completed Not Available [facility] 05/02/2023 02:33:15 Past Encounters Encounter ID Performer Location Encounter Start Date Encounter Closed Date Diagnosis/Indication Diagnosis SNOMED-CT Code Diagnosis ICD10 Code Diagnosis IMO Codes Diagnosis Note [id number] Vinnie Garcia DO [facility] ([facility]) [address] [place] [address] 05/29/2025 14:25:03 05/30/2025 09:20:22 Hyperglycemia due to type 2 diabetes mellitus 8789907375 90062 E11.65 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 6048141 I11.0 Essential hypertension 57640746 I10 Atrial fibrillation 4943 6004 I48.91 [id number] Vinnie Garcia DO [facility] ([facility]) [address] [place] [address] 06/15/2025 12:16:39 06/20/2025 10:33:14 Hospital inpatient stay within past 30 days 0075251201 106 Z76.89 Acute urin viola tract infection 738010336 N39.0 913958 [id number] Vinnie Garcia DO [facility] ([facility]) [address] [place] [address] 06/22/2025 09:39:44 06/28/2025 12:52:37 Spinal stenosis of lumbar region 67636025 M48.062 Atrial fibrillation 4943 6004 I48.91 Essential hypertension 33503558 I10 Displaceme nt of nephrostomy tube 320784683 T83.022A 597677 Blocked catheter 8344190 005 T82.898D [id number] Health Concerns Section Related Observation LastModified by Organization Detai ls LastModified Time None Recorded Concern Status LastModified by Organization Details LastModified Time None Recorded Payers None recorded. Notes Date Note Type Note Provider Name and Address Organization Details Recorded Time 5 text/html HypertensionReported by PatientHPIFor severity, patient reportsgrade 1 (130-139/80-89). For duration, patient reportshas noted for years. For alleviating factors, patient reportsmedication.ROS as noted in the HPI ER follow up Vinnie Garcia DO [address] [place] [address], [phone], WILLEM Pascual [facility], Kayla 06/28/2025 12:25:39
--- OUTSIDE RECORDS SUMMARY | 2025-09-16 17:14 | XMS_ITS | Continuity of Care Document ---
Author Organization [facility] Tejinder, Kayla, [facility] ([facility]) Address [address] [place] [address] Assessment No assessment recorded. Plan of Treatment [...] Modified By Organization Details Last Modified Time 09/11/2025 [id number] Stomach upset. Will d/c metformin. Increase norco to QID prn. Start colace daily. [email or web address] Not available 09/13/2025 17:15:20 Reason for Referral None Reported. 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 3 12:23:29 Essential hypertensi on 34882056 Active 2022 [facility], [facility] 3 12:23:30 Difficulty sleeping 543342547 Active 2022 [facility], [facility] 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 3 12:10:22 Uncontroll ed type 2 diabetes mellitus 338323255 Active 2022 [facility], [facility] 3 12:10:23 Acute urinary tract infection 136924350 Active 2022 [facility], [facility] 3 12:10:26 Sepsis 54416140 Active 2022 [facility], [facility] 3 15:15:01 Metabolic encephalop athy 98650687 Active 2022 [facility], [facility] 3 15:15:02 Pneumonia 083998307 Active 2022 [facility], [facility] 3 15:15:02 Acute pyelonephr itis 12423198 Active [address] [facility] 3 15:15:04 Anemia due to blood loss 869832548 Active 2022 [facility], [facility] 3 15:15:06 Need for personal care assistance 2977902542285 9106 [facility]CS[facility]a 4 13:09:05 Chronic pain 00460700 [facility] LS[facility]hyaL.CSandhya 4 15:47:08 Osteomyeli tis 73442269 Active 2023 [facility] 4 12:18:14 Lumbar discitis 091895174 [facility] 20[facility] LSadnhyaL.CSandhya 4 12:18:29 Urinary tract infectious disease 75899021 Active 2024 [facility] 5 15:46:49 Problem Notes None recorded. Medical [...] sent to pharmacy . *dose increase *; 63936; Recorded 01/22/20 22 12:43PM by Jackeline Todd RN (Authori zed through Vinnie Garcia [...] Details Last Updated DateTime 5 172.72 cm 26.2 kg/m2 75245.8 9 g 76 /min 12 /min 97.9 [degF] 97 % 104/58 mm[Hg] [facility], [facility] 5 10:26:59 Social History None recorded. Functional Status None recorded. Mental Status None recorded. Family History Nothing Reported. Medical History No medical history recorded. Immunizations Vaccine Type Date Status Note Provider Nam e and Address Organization Details Recorded Time zoster live 9 completed Not Available [facility] 09/11/2025 14:18:29 pneumococcal polysaccharide PPV23 1 completed Not Available [facility] 09/11/2025 14:18:29 pneumococcal polysaccharide PPV23 4 completed Not Available [facility] 09/11/2025 14:18:29 Tdap 4 completed Not Available [facility] 09/11/2025 14:18:29 Pneumococcal conjugate PCV 13 5 completed Not Available [facility] 09/11/2025 14:18:29 pneumococcal polysaccharide PPV23 6 completed Not Available [facility] 09/11/2025 14:18:29 Tdap 2 completed Not Available [facility] 09/11/2025 14:18:29 zoster recombinant 2 completed Not Available [facility] 09/11/2025 14:18:29 zoster recombinant 3 completed Not Available [facility] 09/11/2025 14:18:29 Influenza, split virus, quadrivalent, PF 3 completed Not Available [facility] 09/11/2025 14:18:29 Influenza, split virus, trivalent, preservative 0 completed Not Available [facility] 05/02/2023 02:33:15 Past Encounters Encounter ID Performer Location Encounter Start Date Encounter Closed Date Diagnosis/Indication Diagnosis SNOMED-CT Code Diagnosis ICD10 Code Diagnosis IMO Codes Diagnosis Note [id number] Vinnie Garcia DO [facility] ([facility]) [address] [place] [address] 08/14/2025 13:22:40 08/17/2025 16:49:52 Hospital inpatient stay within past 30 days 2024699493 106 Z76.89 Urinary tr act infectious disease 71750047 N39.0 [id number] 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 6115445 I11.0 Essential hypertension 69759351 I10 Atrial fibrillation 4943 6004 I48.91 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 Vinnie Garcia DO [address] [place] [address], [phone], [facility] 09/13/2025 17:15:32
--- OUTSIDE RECORDS SUMMARY | 2025-09-16 17:14 | XMS_ITS | CCD ---
Author Name Interface, I0Pbaynfw lity Address KendallGerry Marshall, [facility] [place] [address] Organization [facility] Address [facility], [facility] [place] [address] Reason for Visit Social History Date Name Value 04/12/2025 Sex Male
--- OUTSIDE RECORDS SUMMARY | 2025-09-16 17:15 | XMS_ITS | Clinical Summary ---
Author Organization [facility] sharing[facility], [facility] Address [address] [place] [address] Phone Care Team Providers Care Breading Machine Tender Name Role Phone Trisha Urena MD Primary Care Provider [phone] Allergies Active Allergy Reactions Criticality Noted Date Comments Gemfibrozil 03/06/2023 Atorvastatin 03/06/2023 Pravastatin 03/06/2023 Medications furosemide (LASIX) 20 MG tablet Take 20 mg by mouth 1 (one) time each day Active galantamine (RAZADYNE) 4 MG tablet Take 4 mg by mouth in the morning and 4 mg in the evening. Active Insulin Aspart (NovoLOG) 100 UNIT/ML solution Inject 24 Units as directed in the morning and 24 Units at noon and 24 Units in the evening. Active insulin glargine (Lantus) 100 UNIT/ML injection Inject 60 Units under the skin in the morning and 60 Units in the evening. Active tamsulosin (FLOMAX) 0.4 MG 24 hr capsule Take 0.4 mg by mouth 1 (one) time each day Active co-enzyme Q-10 30 MG capsule Take 30 mg by mouth 1 (one) time each day Active gabapentin (NEURONTIN) 800 MG tablet Take 800 mg by mouth in the morning and 800 mg at noon and 800 mg in the evening. 0 Active albuterol HFA (PROVENTIL HFA;VENTOLIN HFA) 108 (90 Base) MCG/ACT inhaler Inhale 2 puffs 1 (one) time each day 1 Active amiodarone (PACERONE) 200 MG tablet Take 200 mg by mouth 1 (one) time each day 4 Active rosuvastatin (CRESTOR) 40 MG tablet Take 40 mg by mouth 1 (one) time each day Active pantoprazole (PROTONIX) 40 MG EC tablet Take 40 mg by mouth 1 (one) time each day before breakfast 4 Active mometasone (NASONEX) 50 MCG/ACT nasal spray Administer 2 sprays into each nostril 1 (one) time each day 4 Active metoprolol tartrate (LOPRESSOR) 50 MG tablet Take 50 mg by mouth in the morning and 50 mg in the evening. 4 Active Calmoseptine 0.44-20.6 % ointment 1 (one) time each day 4 Active melatonin tablet Take 1 mg by mouth every night Active Fluticasone-Salm eterol 100-50 MCG/ACT aerosol powder 2 (two) times a day 4 Active finasteride (PROSCAR) 5 MG tablet Take 5 mg by mouth in the morning. 3 Active fluticasone (FLONASE) 50 MCG/ACT nasal spray Administer 2 sprays into affected nostril(s) in the morning. Active bisacodyl (Dulcolax) 10 MG suppository Insert 10 mg into the rectum 1 (one) time each day 3 Active Multiple Vitamin (multivitamin) capsule Take 1 capsule by mouth 1 (one) time each day Active Active Problems Problem Noted Date Diagnosed Date Essential hypertension 2024 Diabetes mellitus without me ntion of complication, type II or unspecified type, not stated as uncontrolled 2024 Anemia 2024 Chronic kidney disease stage 3B 2024 Chronic obstructive pyelonephritis 10/11/2021 Encounters Date Type Department Care Team Description 09/14/2025 Transcribe Orders [facility] [address] [place] [address] Judy Sinha from Last 3 Months Family History Medical History Relation Comments Cancer Maternal Grandmother Heart disease Mother Stroke Mother Relation Status Comments Father Maternal Grandmother Mother Alive Social History Tobacco Use Types Packs/Day Years Used Date Smoking Tobacco: Never Smokeless Tobacco: Never Tobacco Cessation:Counseling Given: Not Answered Alcohol Use Standard Drinks/Week Comments Not Currently 0 (1 standard drink = 0.6 oz pur e alcohol) Sex and Gender Information Value Date Recorded Sex Assigned at Not on file Legal Sex Male 2:05 PM EDT Gender Identity Not on file Sexual Orientation Not on file Last Filed Vital Signs Vital Sign Reading Time Taken Comments Blood Pressure 110/80 2024 2:37 PM CDT Pulse 99 2024 2:37 PM CDT Temperature - - Respiratory Rate - - Oxygen Saturation 96% 2024 2:37 PM CDT Inhaled Oxygen Concentration - - Weight 103 kg (228 lb) 2024 2:37 PM CDT Height 172.7 cm (5' 8 ) 2024 2:37 PM CDT Body Mass Index 34.67 2024 2:37 PM CDT Plan of Treatment Health Maintenance Due Date Last Done Comments Diabetes: Ophthalmology Exam 05/04/2023 Diabetes: Pedal Pulse Checked 05/04/2023 Diabetes: Sensory Foot Exam 05/04/2023 Diabetes: Visual Foot Exam 05/04/2023 Diabetes: Hemoglobin A1C 01/03/2025 025, 06/25/2024, 07/06/2023, Additional history exists Influenza Vaccine (#1) 2025 3, 06/27/2021, 07/13/2020, Additional history exists Pneumococcal Vaccine: 50+ Years Completed 03/13/2016, 08/14/2015, 05/04/2014, Additional history exists Hepatitis B Vaccine Aged Out No longe r eligible based on patient's age to complete this topic Procedures Procedure Name Priority Date/Time Associated Diagnosis Comments HEMOGLOBIN A1C (EXTERNAL RESULT ENTRY) Routine 06/11/2023 12:12 PM CDT from Last 3 Months or Most Recently Relevant to Health Maintenance Results * Hemoglobin A1C (06/11/2023 12:12 PM CDT) Hemoglobin A1C 9.4 Blood specimen (specimen) Venous blood / Unknown 06/11/2023 12:12 PM CDT Aps External Provider LAB BLOOD ORDERABLES Final Result from Last 3 Months or Most Recently Relevant to Health Maintenance Insurance [facility] Regions 1,2,3 (VAC[employer]) Care Teams Breading Machine Tender Relationship Specialty Start Date End Date Trisha Urena MD [address] [place] [address] PCP - General Family Medicine 05/20/23
--- OUTSIDE RECORDS SUMMARY | 2025-09-16 17:15 | XMS_ITS | Patient Health Record ---
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 Name Role Phone Vinnie Garcia DO Primary Care Provider UnavailJohn Good JR Unavailable [phone] Nury Flores Unavailable [phone] Frankie Hendrix Unavailable [phone] Ila Fischer Unavailable Allergies Allergen (clinical drug ingredient) Drug/Non Drug Allergy documented on EMR Reaction Allergy Type Onset Date Status atorvastatin Lipitor Unknown Drug Allergy Acti ve pravastatin Pravachol Unknown Drug Allergy Activ e gemfibrozil Gemfibrozil Unknown Drug Allergy Act arsenio pravastatin Pravastatin Unknown Drug Allergy Act arsenio Results Component Value Reference Range Flag Notes CBC w\ Auto Diff [id number] Reviewed date:09/15/2025 12:52:00 PM Interpretation: Performing Lab: [...] HI Lymph Auto% 17.1 22.0-44.0 % LOW [place] Auto% 5.6 3.0-7.0 % Eos Auto% 2.1 2.0-4.0 % Baso Auto% 0.7 0.0-1.0 % Imm Gran% .6 .0-.4 % HI Neutro Abs 9.79 .80-7.70 HI Absolute Neutrophil Count 9790 NA Lymph Abs 2.27 .10-4.10 [place] Abs .74 .20-1.00 Eos Abs .28 .00-.40 Baso Abs .09 .00-.20 Imm Gran Abs .08 .00-.10 NRBC# .00 .00-.20 NRBC% .00 .00-.20 /100 intact WBC's Comprehensive Metabolic Pane l (CMP) 21825 Reviewed date:09/15/2025 12:52:00 PM Interpretation: Performing Lab: Notes/Report: Diagnosis Description: Type 2 diabetes mellitus with diabetic chronic kidney disease Glucose Serum 276 71-110 MG/DL HI Testing p erformed at [facility], [address] [place] [address] [place] [address]. CLIA ID#: [id number] BUN 19 7-21 MG/DL Creat 1.19 .57-1.17 MG/DL HI F-ynqidn-a-benzoquin one imine (NAPQI) is a metabolite of [...] Osmo Serum,Calculated 304 280-300 MOSM/KG HI CRP 88078 Reviewed date:09/15/2025 12:52:01 PM Interpretation: Performing Lab: Notes/Report: Diagnosis Description: Type 2 diabetes mellitus with diabetic chronic kidney disease CRP 3.38 .40-1.00 MG/DL HI Phosphorus (B) 61662 Reviewed date:01/02/2025 09:13:47 AM Interpretation: Performing Lab: Notes/Report: 5407 @ 2045 5407 @ 2045; Report attempt @2049 Phos 3.2 2.4-5.1 MG/DL Basic Metabolic Panel (BMP) 96689 Reviewed date:01/02/2025 09:13:51 AM Interpretation: Performing Lab: Notes/Report: 5407 @ 6; Report attempt @2049 5407 @ 2045 Sodium 138 136-145 MMOL/L Potassium 4.5 3.5-5.1 MMOL/L Chloride 105 98-107 MMOL/L CO2 28.0 20.0-31.0 MMOL/L Glucose Serum 147 71-110 MG/DL HI Testing p erformed at [facility], [address] [place] [address] [place] [address]. CLIA ID#: [id number] BUN 24 7-21 MG/DL HI Creat .84 .57-1.17 MG/DL M-eoszui-j-benzoquin one imine (NAPQI) is a metabolite of [...] potential for falsely depressed results. GFR 90.6 NA Calculation pe rformed from [...] 8.7-10.4 MG/DL Osmo Serum,Calculated 293 280-300 MOSM/KG Culture Urine 48723 Reviewed date:01/05/2025 11:43:08 AM Interpretation: Performing Lab: Notes/Report: Culture Urine AKI Kelly Culture Urine t: Culture Urine Culture Urine Accessio [id number] Culture Urine n: Culture Urine Microbiology Culture [...] No further work-[place] 69127 Reviewed date:01/05/2025 11:43:12 AM Interpretation: Performing Lab: Notes/Report: 5407 @ 6 5407 @ 2045; Report attempt @2049 CRP 1.44 .40-1.00 MG/DL HI Urinalysis--83499 Reviewed date:01/05/2025 11:46:37 AM Interpretation: Performing Lab: Notes/Report: 5407 @ 6 5407 @ 2045; Report attempt @2049 need repeat urine for microscopic, thanks RB Color UA Yellow NA Clarity UA Cloudy NA Specific gravity UA 1.013 1.005-1.030 Urine pH 7.5 5.0-8.0 NA Urine Glucose 1+ NA Urine Bilirubin Negative NA Urine Ketone Negative NA Urine Blood 1+ NA Urine Protein 1+ NA Urobilinogen 0.2 0.1-1.0 NA Urine Nitrite Negative NA Urine Leukocyte 3+ NA Normal UA No UA Microscopic--67297 Reviewed date:01/05/2025 11:46:34 AM Interpretation: Performing Lab: Notes/Report: Micro UA ordered by [employer] system. 5407 @ 2045; Report attempt @2049 5407 @ 2045 RBC U 3 NA WBC U 375 0-5 /HPF HI Bacteria None Seen Hyaline Casts 3 NA SQ EPI <1 NA Urinalysis--66478 Reviewed date:01/31/2025 08:27:55 AM Interpretation: Performing Lab: Notes/Report: 5407 @ 6 5407 @ 2045; Report attempt @2049 need microscopic Color UA Yellow NA Clarity UA Turbid NA Specific gravity UA 1.021 1.005-1.030 Urine pH 5.5 5.0-8.0 NA Urine Glucose Trace NA Urine Bilirubin Negative NA Urine Ketone Negative NA Urine Blood 3+ NA Urine Protein 2+ NA Urobilinogen 0.2 0.1-1.0 NA Urine Nitrite Negative NA Urine Leukocyte 3+ NA Normal UA No UA Microscopic--91214 Reviewed date:01/31/2025 08:27:52 AM Interpretation: Performing Lab: Notes/Report: Micro UA ordered by [employer] system. 5407 @ 6; Report attempt @2049 5407 @ 6 RBC U 655 NA WBC U >999 0-5 /HPF HI Bacteria 1+ Hyaline Casts 3 NA Granular Casts Present SQ EPI 1 NA Budding Yeast Present Prothrombin Time 64935 Reviewed date:12/23/2024 08:46:20 PM Interpretation: Performing Lab: Notes/Report: 5407 @ 2045 5407 @ 2045; Report attempt @2049 ProTime 11.8 9.1-11.9 SEC Normal Range : 9.1-11.9 INR 1.12 .90-1.20 Therapeutic Range: 2.0-3.0 Therapaeutic Range for heart valve replacement: 2.5-3.50 Partial Thromboplastin Time 81382 Reviewed date:12/23/2024 08:46:50 PM Interpretation: Performing Lab: Notes/Report: 5407 @ 2045 5407 @ 2045; Report attempt @2049 PTT 28.9 22.6-31.8 SEC Therapeutic Range: 60-100. Critical Value Starting at > 100. CRP 81519 Reviewed date:01/26/2025 02:23:47 PM Interpretation: Performing Lab: Notes/Report: Diagnosis Description: Tubulo-interstitial nephritis, not specified as acute or chronic CRP .83 .40-1.00 MG/DL Comprehensive Metabolic Pane l (CMP) 52765 Reviewed date:01/26/2025 02:23:47 PM Interpretation: Performing Lab: Notes/Report: Diagnosis Description: Tubulo-interstitial nephritis, not specified as acute or chronic Glucose Serum 280 71-110 MG/DL HI Testing p erformed at [facility], [address] [place] [address] [place] [address]. CLIA ID#: [id number] BUN 14 7-21 MG/DL Creat .77 .57-1.17 MG/DL R-amitvt-r-benzoquin one imine (NAPQI) is a metabolite of [...] LOW Osmo Serum,Calculated 304 280-300 MOSM/KG HI CBC w\ Auto Diff 40728 Reviewed date:01/26/2025 02:23:47 PM Interpretation: Performing Lab: [...] 40.0-70.0 % Lymph Auto% 23.9 22.0-44.0 % [place] Auto% 6.4 3.0-7.0 % Eos Auto% 3.7 2.0-4.0 % Baso Auto% 0.8 0.0-1.0 % Imm Gran% .3 .0-.4 % Neutro Abs 6.70 .80-7.70 Absolute Neutrophil Count 6700 NA Lymph Abs 2.47 .10-4.10 [place] Abs .66 .20-1.00 Eos Abs .38 .00-.40 Baso Abs .08 .00-.20 Imm Gran Abs .03 .00-.10 NRBC# .00 .00-.20 NRBC% .00 .00-.20 /100 intact WBC's CRP 30491 Reviewed date:01/02/2025 09:13:54 AM Interpretation: Performing Lab: Notes/Report: 5407 @ 2045 5407 @ 2045; Report attempt @2049 Pt is a line draw 12/26/2024 23:09:44 chutson CRP .79 .40-1.00 MG/DL CRP 95356 Reviewed date:01/02/2025 09:12:14 AM Interpretation: Performing Lab: Notes/Report: 5407 @ 2045 5407 @ 2045; Report attempt @2049 CRP .62 .40-1.00 MG/DL Culture Urine 51394 Reviewed date:12/23/2024 09:25:47 AM Interpretation: Performing Lab: Notes/Report: Culture Urine AKI Kelly Culture Urine t: Culture Urine Culture Urine Accessio [id number] Culture Urine n: Culture Urine Microbiology Culture [...] Culture Urine O1: Culture Urine (Culture Urine 88646) Culture Urine Diagnosis Description: Other abnormal findings in urine zzzNephrostomy Tube Replacem ent Reviewed date:08/10/2025 03:22:54 PM Interpretation: Performing Lab: Notes/Report: [id number]&org=iSite CBC w\ Auto Diff 35993 Reviewed date:06/14/2025 08:10:19 AM Interpretation: Performing Lab: [...] % Lymph Auto% 19.7 22.0-44.0 % LOW [place] Auto% 6.9 3.0-7.0 % Eos Auto% 3.4 2.0-4.0 % Baso Auto% 0.8 0.0-1.0 % Imm Gran% .4 .0-.4 % Neutro Abs 8.99 .80-7.70 HI Absolute Neutrophil Count 8990 NA Lymph Abs 2.58 .10-4.10 [place] Abs .90 .20-1.00 Eos Abs .44 .00-.40 HI Baso Abs .11 .00-.20 Imm Gran Abs .05 .00-.10 NRBC# .00 .00-.20 NRBC% .00 .00-.20 /100 intact WBC's Culture Urine 69191 Reviewed date:12/23/2024 09:24:51 AM Interpretation: Performing Lab: Notes/Report: Culture Urine AKI Kelly Culture Urine t: Culture Urine Culture Urine [facility] [id number] Culture Urine n: Culture Urine Microbiology Culture [...] Culture Urine O1: Culture Urine (Culture Urine 58328) Culture Urine Right perc tube Culture Urine Diagnosis Description: Other abnormal findings in [place] CRP 00071 Reviewed date:01/05/2025 11:41:55 AM Interpretation: Performing Lab: Notes/Report: 5407 @ 2045 5407 @ 2045; Report attempt @2049 LINE CRP .94 .40-1.00 MG/DL zzzNephrostomy Tube Replacem ent Reviewed date:08/10/2025 03:22:59 PM Interpretation: Performing Lab: Notes/Report: See Below For Report Nephrostomy Tube Replacement Read See Below For Report Microscopic Urine 02295 Reviewed date:07/05/2025 08:18:39 AM Interpretation: Performing Lab: Notes/Report: Diagnosis Description: Chronic obstructive pyelonephritis RBC U 3 NA WBC U 12 0-5 /HPF HI Bacteria None Seen NA Hyaline Casts 4 NA SQ EPI <1 NA Culture Urine 59439 Reviewed date:07/05/2025 08:18:39 AM Interpretation: Performing Lab: Notes/Report: Culture Urine AKI Kelly Culture Urine t: Culture Urine Culture Urine Accessio [id number] Culture Urine n: Culture Urine Microbiology Culture [...] Culture Urine O1: Culture Urine (Culture Urine 68090) Culture Urine Diagnosis Description: Chronic obstructive pyelonephritis Culture Urine 38991 Reviewed date:01/31/2025 08:27:40 AM Interpretation: Performing Lab: Notes/Report: Culture Urine AKI Kelly Culture Urine t: Culture Urine Culture Urine Accessio [id number] Culture Urine n: Culture Urine Microbiology Culture [...] No further work-up i [place] 34322 Reviewed date:01/05/2025 11:54:59 AM Interpretation: Performing Lab: Notes/Report: 5407 @ 2045 5407 @ 2045; Report attempt @2049 CRP 5.22 .40-1.00 MG/DL HI CBC w\ Auto Diff 23629 Reviewed date:06/14/2025 08:10:19 AM Interpretation: Performing Lab: [...] 40.0-70.0 % Lymph Auto% 25.3 22.0-44.0 % [place] Auto% 5.9 3.0-7.0 % Eos Auto% 4.0 2.0-4.0 % Baso Auto% 0.8 0.0-1.0 % Imm Gran% .5 .0-.4 % HI Neutro Abs 7.35 .80-7.70 Absolute Neutrophil Count 7350 NA Lymph Abs 2.93 .10-4.10 [place] Abs .68 .20-1.00 Eos Abs .46 .00-.40 HI Baso Abs .09 .00-.20 Imm Gran Abs .06 .00-.10 NRBC# .00 .00-.20 NRBC% .00 .00-.20 /100 intact WBC's MRI Lumbar Spine w/ + w/o Co nt-[id number] Reviewed date:01/31/2025 08:29:45 AM Interpretation: Performing Lab: Notes/Report: See Below For Report Technique: Sagittal and axial T2 and pre and post contrast T1 and 5407 @ 2045; Report attempt @2049 Read See Below For Report MRI Lumbar Spine w/ + w/o Co nt-[id number] Reviewed date:02/01/2025 08:19:31 AM Interpretation: Performing Lab: Notes/Report: [id number]&org=iSite Vancomycin Trough 97533 Reviewed date:02/01/2025 08:19:38 AM Interpretation: Performing Lab: Notes/Report: Vanco Tr 36.4 8.0-20.0 MCG/ML CRIT called to belen freeman 12/21/2024 13:23:48 dg UA Microscopic--03227 Reviewed date:06/14/2025 08:10:19 AM Interpretation: Performing Lab: Notes/Report: Micro UA ordered by [employer] Rules system. RBC U 47 NA WBC U 90 0-5 /HPF HI Bacteria None Seen SQ EPI 2 NA Budding Yeast Present Urinalysis--21533 Reviewed date:06/14/2025 08:10:19 AM Interpretation: Performing Lab: Notes/Report: Color UA Yellow NA Clarity UA Clear NA Specific gravity UA 1.009 1.005-1.030 Urine pH 6.5 5.0-8.0 NA Urine Glucose Trace NA Urine Bilirubin Negative NA Urine Ketone Negative NA Urine Blood 2+ NA Urine Protein 1+ NA Urobilinogen 0.2 0.1-1.0 NA Urine Nitrite Negative NA Urine Leukocyte 3+ NA Normal UA No Culture Urine 90654 (Not yet reviewed by provider) Interpretation: Performing Lab: Notes/Report: Culture Urine AKI Kelly Culture Urine t: Culture Urine Culture Urine Access [id number] Culture Urine n: Culture Urine Microbiology Culture [...] Urine No further work-up i s indicated zzzMRI Outside CD Reviewed date:06/11/2025 11:56:54 AM Interpretation: Performing Lab: Notes/Report: [email or web address]=[id number]&org=iSite zzzMRI Outside CD Reviewed date:06/11/2025 11:56:54 AM Interpretation: Performing Lab: Notes/Report: [email or web address]=[id number]&org=iSite zzzCT Outside CD Reviewed date:06/11/2025 11:56:54 AM Interpretation: Performing Lab: Notes/Report: [id number]&org=iSite [facility] MRI Lumbar Spine w/ + w/ o Cont-[id number] Reviewed date:06/11/2025 11:56:54 AM Interpretation: Performing Lab: Notes/Report: [id number]&org=iSite [facility] MRI Lumbar Spine w/ + w/ o Cont-[id number] Reviewed date:06/11/2025 11:56:54 AM Interpretation: Performing Lab: Notes/Report: See Below For Report MRI Lumbar Spine w/ + w/o Cont Read See Below For Report CRP 09720 Reviewed date:06/14/2025 08:10:19 AM Interpretation: Performing Lab: Notes/Report: CRP 4.79 .40-1.00 MG/DL CT Reason For Referral Reason UTI (Expires 6) 12/20 Diagnosis 1 UTI symptoms (R39.9) Referring Provider First Name Judy Referring Provider Last Name Ernestine Referring Provider Speciality Family Med icine Referred Organization [facility] Referred Provider Nury Flores Referred Address [address] [place] [phone], Referred Provider Specialty Nurse Tolu elizalde Referral Priority Routine Reason Urinary tract infect ion Diagnosis 1 Urinary tract infect ion (N39.0) Referring Provider First Name Carla bettencourt Referring Provider Last Name [place] [facility] Referred Organization [facility] Referred Provider Frankie Hendrix Referred Address [address],[place],[address],[place] Referred Provider Specialty Urology Referral Priority Routine Reason Nephrostomy tubes Diagnosis 1 Nephrostomy status ( Z93.6) Referring Provider First Name Trisha Referring Provider Last Name [facility] Referring Provider [facility] Referred Organization [facility] Referred Provider Frankie Hendrix Referred Address [address],[place],[address],[place] Referred Provider Specialty Urology Referral Priority Routine Reason hydronephrosis Diagnosis 1 Hydronephrosis (N13. 30) Referring Provider First Name Carla bettencourt Referring Provider Last Name [place] Referring Provider [facility] Referred Organization [facility] Referred Provider Frankie Hendrix Referred Address [address],[place], [place],[address],[place] Referred Provider Specialty Urology Referral Priority Routine Reason Chronic Kidney Disea se Diagnosis 1 Ureteral stent prese nt (Z96.0) Diagnosis 2 Hydronephrosis, unsp ecified hydronephrosis type (N13.30) Diagnosis 3 Pyelonephritis (N12) Referral Organization [facility] Medicine & Infectious Disease Referring Provider First Name Nury Referring Provider Last Name Mark Referring Provider Speciality Nurse Dedra ibarra Referred Provider Salty Nova Referred Provider Specialty Nephrology Referral Priority Routine Medications Medication SIG (Take, Route, Frequency, Duration) Notes Start Date End Date Status Coenzyme Q10 10 MG Capsule as directed Orally Not-Takin g cholecalciferol 1.25 MG Oral Tablet ORAL *Reorder from [employer] for eRx and Interaction Alerts* 07/23/2023 Not-Taking Cranberry 250 MG Tablet as directed Orally Not-Takin g Colace 100 MG Capsule 1 capsule as needed Orally Once a day Not-Taking Dulcolax 10 MG Suppository 1 suppository as needed Rectal Once a day Not-Taking Diltiazem Hydrochloride 60 MG Oral Tablet ORAL *Reorder from [employer] for eRx and Interaction Alerts* 07/23/2023 Not-Taking Finasteride 5 MG Tablet Oral 07/23/2023 Not-Taking Acetaminophen 325 MG Tablet 1 tablet as needed Orally every 6 hrs Active Albuterol Sulfate 108 (90 Base) MCG/ACT Aerosol Powder Breath Activated 1 puff as needed Inhalation every 4 hrs Active Fluconazole 200 MG Tablet 1 tablet Orally 03/23/2024 Not-Taking Acidophilus Active Fish Oil 1000 MG Capsule 1 capsule Orally Three times a day Not-Taking Fosfomycin Tromethamine 3 GM Packet as directed Orally 02/01/2025 Not-Takin g Ascorbic Acid 500 MG Tablet Chewable 1 tablet Orally Once a day Active fluticasone propionate 0.1 MG/ACTUAT / salmeterol 0.05 MG/ACTUAT Dry Powder Inhaler INTRAPULMONARY *Reorder from [employer] for eRx and Interaction Alerts* 07/23/2023 Not-Taking ubidecarenone 30 MG Oral Capsule ORAL *Reorder from [employer] for eRx and Interaction Alerts* 07/23/2023 Not-Taking Tylenol 325 MG Tablet 1 tablet as needed Orally every 6 hrs 03/23/2024 Not-Taking vitamin B12 1 MG Sublingual Tablet *Reorder from [employer] for eRx and Interaction Alerts* 07/23/2023 Not-Taking Amiodarone HCl 200 MG Tablet 1 tablet Orally Once a day Not-Taking Carvedilol 6.25 MG Tablet 1 tablet with food Orally Twice a day Not-Taking bisacodyl 10 MG Rectal Suppository [Dulcolax] RECTAL *Reorder from [employer] for eRx and Interaction Alerts* 07/23/2023 Not-Taking NovoLOG 100 UNIT/ML Solution as directed Injection Not-Taking mometasone furoate 0.05 MG/ACTUAT Metered Dose Nasal [place] *Reorder from [employer] for eRx and Interaction Alerts* 07/23/2023 Not-Taking Pantoprazole Sodium 40 MG Tablet Delayed Release 1 tablet Orally BID 03/23/2024 Not-Takosiel ng oxyCODONE HCl 5 mg Not-Ta joel Potassium Chloride ER 10 MEQ Tablet Extended Release 1 tablet with food Orally once daily Not-Taking Insulin Glargine 100 UNIT/ML Solution Pen-injector as directed Subcutaneous Active Lantus 100 UNIT/ML Solution as directed Subcutaneous Active Lactobacillus Active metFORMIN HCl 500 MG Tablet Oral 07/23/2023 Active Medihoney Wound/Burn Dressing - Gel as directed Externally Active Nystatin Active Methenamine Hippurate 1 GM Tablet 1 tablet Orally Twice a day Active Ondansetron 4 MG Tablet Disintegrating 1 tablet on the tongue and allow to dissolve Orally Once a day Active Rosuvastatin Calcium 40 MG Oral Tablet ORAL *Reorder from [employer] for eRx and Interaction Alerts* 07/23/2023 Not-Taking Omeprazole 20 MG Capsule Delayed Release 1 capsule 1/2 to 1 hour before morning meal Orally Once a day Active rivaroxaban 20 MG Oral Tablet [Xarelto] ORAL *Reorder from [employer] for eRx and Interaction Alerts* 07/23/2023 Not-Taking Tamsulosin HCl 0.4 MG Capsule Oral 07/23/2023 Not-Taking Simethicone 125 MG Tablet Chewable 1 tablet after meals and at bedtime as needed Orally Four times a day Active Tamsulosin HCl 0.4 MG Capsule 1 capsule Orally Once a day Not-Taking traMADol HCl 50 MG Tablet 1 tablet as needed Orally every 6 hours 03/23/2024 Not-Taking Galantamine Hydrobromide 4 MG Tablet 1 tablet with meals Orally Twice a day Not-Taking Gabapentin 400 MG Capsule 1 capsule Orally Once a day Not-Taking Linezolid Not-Taking insulin aspart, human 100 UNT/ML Injectable Solution [NovoLog] *Reorder from [employer] for eRx and Interaction Alerts* 09/25/2023 Not-Taking Melatonin 1 MG/4ML Liquid 4 mL at bedtime as needed Orally Once a day Not-Taking Losartan Potassium 50 MG Oral Tablet ORAL *Reorder from [employer] for eRx and Interaction Alerts* 07/23/2023 Not-Taking Cephalexin 500 MG Capsule 1 capsule Orally every 6 hrs Active Atorvastatin Calcium 80 MG Tablet 1 tablet Orally Once a day Active Digoxin 250 MCG Tablet 1 tablet Orally Once a day Active Cipro 500 MG Tablet 1 tablet Orally every 12 hrs Active fentaNYL 100 MCG/HR Patch 72 Hour 1 patch to skin Transdermal Active Docusate Sodium 100 MG Capsule 1 capsule as needed Orally Once a day Active Fluticasone Propionate (Inhal) 100 MCG/ACT Aerosol Powder Breath Activated 1 puff Inhalation Twice a day Active Melatonin 1 MG Oral Tablet ORAL *Reorder from [employer] for eRx and Interaction Alerts* 07/23/2023 Not-Taking Fluticasone Propionate 50 MCG/ACT Suspension 1 spray in each nostril Nasally Twice a day Active HYDROcodone-Acetamin ophen 7.5-325 MG Tablet 1 tablet as needed Orally every 6 hrs Active Metoprolol Tartrate 50 MG Tablet 1 tablet with food Orally Twice a day Not-Taking Furosemide 20 MG Oral Tablet ORAL *Reorder from [employer] for eRx and Interaction Alerts* 07/23/2023 Active Methocarbamol 750 MG Oral Tablet ORAL *Reorder from [employer] for eRx and Interaction Alerts* 07/23/2023 Not-Taking Mometasone Furoate 50 MCG/ACT Suspension 4 sprays (2 sprays in each nostril) Nasally Once a day Not-Taking MiraLax 17 GM/SCOOP Powder 1 scoop mixed with 8 ounces of fluid Orally Once a day Not-Taking Social History Section Notes: Non smoker Non smoker Non smoker Non smoker Non smoker Non smoker Non smoker Non smoker Non smoker Non smoker Non smoker Problems Problem Type SNOMED Code ICD Code Onset Dates Problem Status W/U Status Risk Notes Problem Malignant neoplasm of prostate (838070327) Malignant neoplasm of prostate (C61) Active confirmed Problem 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 Problem Diabetic renal disease (153611511) Type 2 diabetes mellitus with diabetic chronic kidney disease (E11.22) Active confirmed Problem Chronic obstructive pyelonephritis (247820935) 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 Problem Chronic kidney disease (338762866) Chronic kidney disease, unspecified (N18.9) Active confirmed Problem Disorder of urinary bladder (33545590) Other specified disorders of bladder (N32.89) Active confirmed Problem Disorder of urinary bladder (09388382) Bladder disorder, unspecified (N32.9) Active confirmed Problem Hallucinations (7734836) Hallucinations, unspecified (R44.3) Active confirmed Problem History of malignant neoplasm of prostate (664085410) Personal history of malignant neoplasm of prostate (Z85.46) Active confirmed Problem Urostomy present (577481676) Other artificial openings of urinary tract status (Z93.6) Active confirmed Problem Urogenital implant (529649494) Presence of urogenital implants (Z96.0) Active confirmed Problem Altered mental status (740836447) Altered mental status, unspecified altered mental status type (R41.82) Active confirmed Problem Discitis of lumbar region () 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) Active confirmed Problem History of malignant neoplasm of prostate (061319760) Personal history of prostate cancer (Z85.46) Active confirmed Problem History of radiation therapy (630570052) History of radiation therapy (Z92.3) Active confirmed Problem Pressure injury of coccygeal region, 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 Problem Nephrostomy (02380920) Nephrostomy status (Z93.6) Active confirmed Problem Chronic kidney disease stage 3 (disorder) (546170565) Chronic kidney disease, stage 3 unspecified (N18.30) Active confirmed Problem History of external beam radiation therapy (20485328195090) History of external beam radiation therapy (Z92.3) Active confirmed Problem Lumbar discitis () 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) Active confirmed Problem Ureteral stent present (Z96.0) Active confirmed Problem Obstructive pyelonephritis (9435626907039) Obstructive pyelonephritis (N11.1) Active confirmed Problem Nephrostomy present (56284152833435) Nephrostomy present (Z93.6) Active confirmed Vital Signs Heart Rate 112 /min 09/14/2025 Temperature 98.2 degrees Fahrenheit 09/14/2025 Respiratory Rate 18 /min 08/15/2025 Oximetry 99 % 09/14/2025 Blood pressure diastolic 60 mm Hg 09/14/2025 Height-cm 172.72 cm 09/14/2025 Weight-kg 78.43 kg 09/14/2025 Height 68.00 in 09/14/2025 Blood pressure systolic 94 mm Hg 09/14/2025 Weight 172.9 lbs 09/14/2025 BMI 26.29 kg/m2 09/14/2025 Encounters Encounter Location Date Provider Diagnosis [facility] Disease [address] [place] [id number] 02/01/2025 John Leyvay Pyelonephritis N12 ; Unspecified Escherichia coli [E. 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 ; Hydronephrosis, unspecified hydronephrosis type N13.30 ; Ureteral stent present Z96.0 ; Intractable pain R52 and Nephrostomy status Z93.6 [facility] [address] [place] [address], [place] [address] 09/14/2025 Nury Mark Nephrostomy status Z93.6 ; Pressure injury of coccygeal region, stage 3 L89.153 ; Type 2 diabetes mellitus with 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 ; Obstructive pyelonephritis N11.1 and Chronic kidney disease, stage 3 unspecified N18.30 [facility] [address] [place] [address], [place] [address] 08/15/2025 Nury Godwin Nephrostomy status Z93.6 ; Type 2 diabetes mellitus with 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 ; Obstructive pyelonephritis N11.1 and Chronic kidney disease, stage 3 unspecified N18.30 [facility] [address] [place] [address] Dr Berry [address] [place] [address], [place] [address] 07/24/2025 Ila Purdy-Kline Nephrostomy status Z93.6 ; Pyelonephritis N12 ; 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 ; Personal history of malignant neoplasm of prostate Z85.46 and History of radiation therapy Z92.3 [facility] [address] [place] [address] Dr Berry [address] [place] [address], [place] [address] 03/31/2025 Ila Banguraon-Kline Nephrostomy status Z93.6 ; Hydronephrosis, unspecified hydronephrosis type N13.30 ; Personal history of malignant neoplasm of prostate Z85.46 ; History of external beam radiation therapy Z92.3 and 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 [facility] [address] [place] [address] Dr Berry [address] [place] [address], [place] [address] 12/20/2024 Frankie Hendrix Bilateral hydronephrosis N13.30 ; Personal history of prostate cancer Z85.46 ; Bladder disorder N32.9 ; Other abnormal findings in urine R82.998 and Unspecified abnormal findings in urine R82.90 [facility] [address] [place] [address], [place] [address] 07/03/2025 Nury Godwin Nephrostomy status Z93.6 ; Type 2 diabetes mellitus with 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 and Obstructive pyelonephritis N11.1 [facility] [address] [place] [address], [place] [address] 01/25/2025 Nury Mark Pyelonephritis N12 ; Unspecified Escherichia coli [E. 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 ; Hydronephrosis, unspecified hydronephrosis type N13.30 ; Ureteral stent present Z96.0 ; Intractable pain R52 and Nephrostomy status Z93.6 [facility] [address] [place] [address], [place] [address] 07/17/2025 John Man Nephrostomy status Z93.6 ; Type 2 diabetes mellitus with 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 and Obstructive pyelonephritis N11.1 [facility] [address] [place] [address], [place] [address] 12/20/2024 Nury Godwin Pyelonephritis N12 ; Unspecified Escherichia coli [E. 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 ; Hydronephrosis, unspecified hydronephrosis type N13.30 ; Ureteral stent present Z96.0 ; Intractable pain R52 and Nephrostomy status Z93.6 [facility] [address] [place] [address] [place] [address] 05/05/2025 Frankie Jacksay [facility] [address] [place] [address] Dr Berry [address] [place] [address] 04/10/2025 Frankie Hendrix [facility] [address] [place] [address], [place] [address] 09/14/[address] [facility] [address] [place] [address] [place] [address] 03/31/2025 Frankie Hendrix Malignant neoplasm o f right ureter C66.1 ; Nephrostomy status Z93.6 and Ureteral stent present Z96.0 [facility] [address] [place] [address] [place] [address] 03/22/2025 Frankie [facility] [address] [place] [address] 03/21/2025 Frankie [facility] [address] [place] [address] 01/09/2025 [facility] [address] [place] [address] 12/22/2024 Frankie [facility] [address] [place] [address] 12/21/2024 Frankie [facility] [address] [place] [address] 12/20/2024 Frankie [facility] [address] [place] [address] 12/20/2024 Frankie Hendrix Other abnormal findings in urine R82.998 [facility] [address] [place] [address] 12/20/2024 [facility] [address] [place] [address] 12/19/2024 [facility] [address] [place] [address] 12/07/2024 Frankie [facility] [address] [place] [address] 12/02/2024 Frankie [facility] [address] [place] [address] 10/14/2024 Frankie [facility] [address] [place] [address] 08/16/2025 [facility] [address] [place] [address] 08/15/2025 [facility] [address] [place] [address] 08/10/2025 Frankie [facility] [address] [place] [address] 08/10/2025 Frankie Hendrix [facility] [address] Berry [address] [place] [address] 08/03/2025 Frankie Jacksay [facility] [address] [place] [address] 08/02/2025 Frankie Hendrix [facility] [address] [place] [address] 07/24/2025 Frankie Hendrix Ureteral stent prese nt Z96.0 and Malignant neoplasm of prostate C61 [facility] [address] Berry [address] [place] [address] 07/24/2025 Ila Fischer [facility] [address] Berry [address] [place] [address] 07/20/2025 Frankie Jacksay [facility] [address] Berry [address] [place] [address] 06/28/2025 Frankie Hendrix [facility] [address] Berry [address] [place] [address] 06/28/2025 Frankie Jacksay [facility] [address] Berry [address] [place] [address] 06/27/2025 Frankie Hendrix Assessments Encounter Date Diagnosis (ICD Code) Assessment Notes Treatment Notes Treatment Clinical Notes Section Notes 12/20/2024 Unspecified Escherichia coli [E. coli] as the cause of diseases classified elsewhere (ICD-10 - B96.20) 1. R ureter obstruction, severe hydronephrosis, chronic contracted bladder - s/p Right ureteral stent exchange on March 08, 2024. - to be seen this week at [facility] for ileal conduit and urinary diversion 2. Last seen here in clinic April 2024 Patient recently released from [facility], no medical records to review, per patient and daughter UTI sepsis and back infection I will request records 3. Nephrostomy tubes in place bilaterally, seen by Dr. Hendrix today Per patient report seen by [facility], not stable for ileal conduit surgery at [...] - to be seen this week at [facility] for ileal conduit and urinary diversion 2. Last seen here in clinic April 2024 Patient recently released from [facility], no medical records to review, per patient and daughter UTI sepsis and back infection I will request records 3. Nephrostomy tubes in place bilaterally, seen by Dr. Hendrix today Per patient report seen by [facility], not stable for ileal conduit surgery at this time 4. Intractable back pain abdominal pain hip pain, will refer patient to the emergency room for evaluation He will need close follow-up in the clinic 09/14/2025 Pressure injury of coccygeal region, stage [...] pneumonia, [facility] WBC 286 08-08-25 W 14.0 ACCOUNTS RECEIVABLE ASSISTANT 1.12 08-09-25 W 12.7 ACCOUNTS RECEIVABLE ASSISTANT 1.08 08-10-25 W 11.7 ACCOUNTS RECEIVABLE ASSISTANT 1.13 09-14-25; Check CBC, CMP, CRP in office [facility] for continued care of chronic kidney disease Follow up; in 4 weeks 09/14/2025 Nephrostomy status (ICD-10 - Z93.6) 1. [...] pneumonia, UM WBC 286 08-08-25 W 14.0 ACCOUNTS RECEIVABLE ASSISTANT 1.12 08-09-25 W 12.7 ACCOUNTS RECEIVABLE ASSISTANT 1.08 08-10-25 W 11.7 ACCOUNTS RECEIVABLE ASSISTANT 1.13 09-14-25; Check CBC, CMP, CRP in office [facility] for continued care of chronic kidney disease Follow up; in 4 weeks 08/15/2025 Type 2 diabetes mellitus with diabetic chronic [...] for progressive, or recurrent discitis 5. Antibiotics; -completed Fortaz, and PO fluconazole on 07-03-25 at day 14 -duration of therapy, both 14 days s/p nephrostomy change on 07-02-25 08-15-25; Cipro BID, s/p nephrostomy tube exchange on 08-07-25 Duration of therapy 14 days 6. UTI prophylaxis; - Methenamine continue methenamine hippurate 1 g twice daily with vitamin C 500 mg twice daily (started 07-03-25) -08-15-25; Add Cipro intermittent prophylaxis Thursday to regime once 14 day therapy completed Labs 07-03-25 UC Neg, UM WBC U 12 08-07-25; UC >100,000 K. pneumonia, UM WBC 286 08-08-25 W 14.0 ACCOUNTS RECEIVABLE ASSISTANT 1.12 08-09-25 W 12.7 ACCOUNTS RECEIVABLE ASSISTANT 1.08 08-10-25 W 11.7 ACCOUNTS RECEIVABLE ASSISTANT 1.[address] [facility] for continued care of chronic kidney disease Follow up; in 4 weeks 08/15/2025 Nephrostomy status (ICD-10 - Z93.6) 1. 75 [...] for progressive, or recurrent discitis 5. Antibiotics; -completed Fortaz, and PO fluconazole on 07-03-25 at day 14 -duration of therapy, both 14 days s/p nephrostomy change on 07-02-25 08-15-25; Cipro BID, s/p nephrostomy tube exchange on 08-07-25 Duration of therapy 14 days 6. UTI prophylaxis; - Methenamine continue methenamine hippurate 1 g twice daily with vitamin C 500 mg twice daily (started 07-03-25) -08-15-25; Add Cipro intermittent prophylaxis Thursday to regime once 14 day therapy completed Labs 07-03-25 UC Neg, UM WBC U 12 08-07-25; UC >100,000 K. pneumonia, UM WBC 286 08-08-25 W 14.0 ACCOUNTS RECEIVABLE ASSISTANT 1.12 08-09-25 W 12.7 ACCOUNTS RECEIVABLE ASSISTANT 1.08 08-10-25 W 11.7 ACCOUNTS RECEIVABLE ASSISTANT 1.[address] [facility] for continued care of chronic kidney disease Follow up; in 4 weeks 07/24/2025 Ureteral stent present (ICD-10 - Z96.0) 07/17/2025 Type 2 diabetes mellitus with diabetic [...] U 12 Follow up; Maria Alejandra Degroot 03/31/2025 Malignant neoplasm of right ureter (ICD-10 - C66.1) 07/03/2025 Type 2 diabetes mellitus with diabetic [...] follow-up with Dr. Man in 2 weeks 03/31/2025 Hydronephrosis, unspecified hydronephrosis type (ICD-10 - N13.30) HX OF THIS DUE TO UROPATHY 03/31/2025 Nephrostomy status (ICD-10 - Z93.6) NEEDS NEPHROSTOMY TUBE CHANGE IN EARLY 02/01/2025 Pyelonephritis (ICD-10 - N12) 1. 74 [...] (start date 02-01-25) Labs 01-25-25 W 10.3, Joy Operator .77, CRP .83 Follow up; 1 month Maria Alejandra Clarisa Zane 01/25/2025 Pyelonephritis (ICD-10 - N12) 1. 74 [...] history of prostate cancer (ICD-10 - Z85.46) 07/24/2025 Pyelonephritis (ICD-10 - N12) 07/24/2025 Nephrostomy status (ICD-10 - Z93.6) 07/24/2025 Malignant neoplasm of right ureter (ICD-10 - C66.1) 12/20/2024 Bladder disorder (ICD-10 - N32.9) 01/25/2025 Unspecified Escherichia coli [E. coli] as [...] (start date 02-01-25) Labs 01-25-25 W 10.3, Joy Operator .77, CRP .83 Follow up; 1 month Maria Alejandra Degroot 07/03/2025 Obstructive pyelonephritis (ICD-10 - N11.1) 1. [...] follow-up with Dr. Man in 2 weeks 03/31/2025 Personal history of malignant neoplasm of prostate (ICD-10 - Z85.46) EBRT IN THE PAST, HAS CAUSED ISSUES WITH BLADDER 03/31/2025 Nephrostomy status (ICD-10 - Z93.6) 07/17/2025 Obstructive pyelonephritis (ICD-10 - N11.1) 1. [...] U 12 Follow up; Maria Alejandra Degroot 08/15/2025 Obstructive pyelonephritis (ICD-10 - N11.1) 1. 75 [...] for progressive, or recurrent discitis 5. Antibiotics; -completed Fortaz, and PO fluconazole on 07-03-25 at day 14 -duration of therapy, both 14 days s/p nephrostomy change on 07-02-25 08-15-25; Cipro BID, s/p nephrostomy tube exchange on 08-07-25 Duration of therapy 14 days 6. UTI prophylaxis; - Methenamine continue methenamine hippurate 1 g twice daily with vitamin C 500 mg twice daily (started 07-03-25) -08-15-25; Add Cipro intermittent prophylaxis Thursday to regime once 14 day therapy completed Labs 07-03-25 UC Neg, UM WBC U 12 08-07-25; UC >100,000 K. pneumonia, UM WBC 286 08-08-25 W 14.0 ACCOUNTS RECEIVABLE ASSISTANT 1.12 08-09-25 W 12.7 ACCOUNTS RECEIVABLE ASSISTANT 1.08 08-10-25 W 11.7 ACCOUNTS RECEIVABLE ASSISTANT 1.[address] 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 R ureter obstruction, severe hydronephrosis, chronic contracted bladder - s/p Right ureteral stent exchange on March 08, 2024. - to be seen this week at [facility] for ileal conduit and urinary diversion 2. Last seen here in clinic April 2024 Patient recently released from [facility], no medical records to review, per patient and daughter UTI sepsis and back infection I will request records 3. Nephrostomy tubes in place bilaterally, seen by Dr. Hendrix today Per patient report seen by [facility], not stable for ileal conduit surgery at [...] - to be seen this week at [facility] for ileal conduit and urinary diversion 2. Last seen here in clinic April 2024 Patient recently released from [facility], no medical records to review, per patient and daughter UTI sepsis and back infection I will request records 3. Nephrostomy tubes in place bilaterally, seen by Dr. Hendrix today Per patient report seen by [facility], not stable for ileal conduit surgery at this time 4. Intractable back pain abdominal pain hip pain, will refer patient to the emergency room for evaluation He will need close follow-up in the clinic 08/15/2025 Chronic kidney disease, stage 3 unspecified (ICD-10 [...] for progressive, or recurrent discitis 5. Antibiotics; -completed Fortaz, and PO fluconazole on 07-03-25 at day 14 -duration of therapy, both 14 days s/p nephrostomy change on 07-02-25 08-15-25; Cipro BID, s/p nephrostomy tube exchange on 08-07-25 Duration of therapy 14 days 6. UTI prophylaxis; - Methenamine continue methenamine hippurate 1 g twice daily with vitamin C 500 mg twice daily (started 07-03-25) -08-15-25; Add Cipro intermittent prophylaxis Thursday to regime once 14 day therapy completed Labs 07-03-25 UC Neg, UM WBC U 12 08-07-25; UC >100,000 K. pneumonia, UM WBC 286 08-08-25 W 14.0 ACCOUNTS RECEIVABLE ASSISTANT 1.12 08-09-25 W 12.7 ACCOUNTS RECEIVABLE ASSISTANT 1.08 08-10-25 W 11.7 ACCOUNTS RECEIVABLE ASSISTANT 1.[address] [facility] for continued care of chronic kidney disease Follow up; in 4 weeks 03/31/2025 Ureteral stent present (ICD-10 - Z96.0) 09/14/2025 Obstructive pyelonephritis (ICD-10 - N11.1) 1. [...] pneumonia, UM WBC 286 08-08-25 W 14.0 ACCOUNTS RECEIVABLE ASSISTANT 1.12 08-09-25 W 12.7 ACCOUNTS RECEIVABLE ASSISTANT 1.08 08-10-25 W 11.7 ACCOUNTS RECEIVABLE ASSISTANT 1.13 09-14-25; Check CBC, CMP, CRP in office [facility] for continued care of chronic kidney disease Follow up; in 4 weeks 02/01/2025 Extended spectrum beta lactamase (ESBL) resistance [...] (start date 02-01-25) Labs 01-25-25 W 10.3, Joy Operator .77, CRP .83 Follow up; 1 month Maria Alejandra Degroot 03/31/2025 History of external beam radiation therapy (ICD-10 - Z92.3) SEE ABOVE NOTE 01/25/2025 Extended spectrum beta lactamase (ESBL) resistance [...] house today follow-up in 1 week 07/24/2025 Personal history of malignant neoplasm of prostate (ICD-10 - Z85.46) 12/20/2024 Other abnormal findings in urine (ICD-10 - R82.998) 07/24/2025 History of radiation therapy (ICD-10 - Z92.3) 01/25/2025 Hydronephrosis, unspecified hydronephrosis type (ICD-10 - [...] with marci tropicalis -12-20-24; UC with Yeast- 18-25 U WBC >999 - the combination of [...] (start date 02-01-25) Labs 01-25-25 W 10.3, Joy Operator .77, CRP .83 Follow up; 1 month Maria Alejandra Degroot 03/31/2025 Malignant neoplasm of right ureter (ICD-10 - C66.1) SMALL 12 MM MASS FOUND IN RIGHT URETER AND LOWER RIGHT KIDNEY 12/20/2024 Ureteral stent present (ICD-10 - Z96.0) 1. R ureter obstruction, severe hydronephrosis, chronic contracted bladder - s/p Right ureteral stent exchange on March 08, 2024. - to be seen this week at [facility] for ileal conduit and urinary diversion 2. Last seen here in clinic April 2024 Patient recently released from [facility], no medical records to review, per patient and daughter UTI sepsis and back infection I will request records 3. Nephrostomy tubes in place bilaterally, seen by Dr. Hendrix today Per patient report seen by [facility], not stable for ileal conduit surgery at this time 4. Intractable back pain abdominal pain hip pain, will refer patient to the emergency room for evaluation He will need close follow-up in the clinic 09/14/2025 Chronic kidney disease, stage 3 unspecified [...] pneumonia, UM WBC 286 08-08-25 W 14.0 ACCOUNTS RECEIVABLE ASSISTANT 1.12 08-09-25 W 12.7 ACCOUNTS RECEIVABLE ASSISTANT 1.08 08-10-25 W 11.7 ACCOUNTS RECEIVABLE ASSISTANT 1.13 09-14-25; Check CBC, CMP, CRP in office [facility] for continued care of chronic kidney disease Follow up; in 4 weeks 12/20/2024 Intractable pain (ICD-10 - R52) 1. R ureter obstruction, severe hydronephrosis, chronic contracted bladder - s/p Right ureteral stent exchange on March 08, 2024. - to be seen this week at [facility] for ileal conduit and urinary diversion 2. Last seen here in clinic April 2024 Patient recently released from [facility], no medical records to review, per patient and daughter UTI sepsis and back infection I will request records 3. Nephrostomy tubes in place bilaterally, seen by Dr. Hendrix today Per patient report seen by [facility], not stable for ileal conduit surgery at [...] (start date 02-01-25) Labs 01-25-25 W 10.3, Joy Operator .77, CRP .83 Follow up; 1 month Maria Alejandra Degroot 12/20/2024 Unspecified abnormal findings in urine (ICD-10 [...] in house today follow-up in 1 week 01/25/2025 Intractable pain (ICD-10 - R52) 1. [...] (start date 02-01-25) Labs 01-25-25 W 10.3, Joy Operator .77, CRP .83 Follow up; 1 month Maria Alejandra Degroot 12/20/2024 Nephrostomy status (ICD-10 - Z93.6) 1. R ureter obstruction, severe hydronephrosis, chronic contracted bladder - s/p Right ureteral stent exchange on March 08, 2024. - to be seen this week at [facility] for ileal conduit and urinary diversion 2. Last seen here in clinic April 2024 Patient recently released from [facility], no medical records to review, per patient and daughter UTI sepsis and back infection I will request records 3. Nephrostomy tubes in place bilaterally, seen by Dr. Hendrix today Per patient report seen by [facility], not stable for ileal conduit surgery at [...] (start date 02-01-25) Labs 01-25-25 W 10.3, Joy Operator .77, CRP .83 Follow up; 1 month [...] tube exchange with interventional radiology at [facility]. These will need to be changed every 3 months. cbc, bmp, PSA now. [facility] have [facility] today. Please obtain and if it is that is fine. follow up 3 months with nurse pracdtitioner. Cutlure urine from each PCNL. 12/20/[address] Man, referring patient to the emergency room for intractable pain evaluation No medical records from [facility] to review 1. R ureter obstruction, severe hydronephrosis, chronic contracted bladder - s/p Right ureteral stent exchange on March 08, 2024. - to be seen this week at [facility] for ileal conduit and urinary diversion 2. Last seen here in clinic April 2024 Patient recently released from [facility], no medical records to review, per patient and daughter UTI sepsis and back infection I will request records 3. Nephrostomy tubes in place bilaterally, seen by Dr. Hendrix today Per patient report seen by [facility], not stable for ileal conduit surgery at this time 4. Intractable back pain abdominal pain hip pain, will refer patient to the emergency room for evaluation He will need close follow-up in the clinic 03/31/2025 Other FOLLOW UP IN 3 MONTHS UA, CT ABDOMEN NO CONTRAST, CBC, CMP - IMAGING MUST BE DONE AT [facility], [facility] SEND ORDER FOR NEPHROSTOMY TUBE EXCHANGE OUTPATIENT [...] PSA, CBC, CMP, RANJANA ALL COMPLETED AT [facility] - NO LABS OR IMAGING TO BE COMPLETED AT [facility], THEY WILL NOT BE ACCEPTED FOLLOW UP IN 3 MONTHS 08/15/2025 Other Hospital record s reviewed, medication list [...] for progressive, or recurrent discitis 5. Antibiotics; -completed Fortaz, and PO fluconazole on 07-03-25 at day 14 -duration of therapy, both 14 days s/p nephrostomy change on 07-02-25 08-15-25; Cipro BID, s/p nephrostomy tube exchange on 08-07-25 Duration of therapy 14 days 6. UTI prophylaxis; - Methenamine continue methenamine hippurate 1 g twice daily with vitamin C 500 mg twice daily (started 07-03-25) -08-15-25; Add Cipro intermittent prophylaxis Thursday to regime once 14 day therapy completed Labs 07-03-25 UC Neg, UM WBC U 12 08-07-25; UC >100,000 K. pneumonia, UM WBC 286 08-08-25 W 14.0 ACCOUNTS RECEIVABLE ASSISTANT 1.12 08-09-25 W 12.7 ACCOUNTS RECEIVABLE ASSISTANT 1.08 08-10-25 W 11.7 ACCOUNTS RECEIVABLE ASSISTANT 1.[address] [facility] for continued care of chronic kidney disease Follow up; in 4 weeks 09/14/2025 Other Hospital record s reviewed, medication list [...] pneumonia, UM WBC 286 08-08-25 W 14.0 ACCOUNTS RECEIVABLE ASSISTANT 1.12 08-09-25 W 12.7 ACCOUNTS RECEIVABLE ASSISTANT 1.08 08-10-25 W 11.7 ACCOUNTS RECEIVABLE ASSISTANT 1.13 09-14-25; Check CBC, CMP, CRP in office [facility] for continued care of chronic kidney disease Follow up; in 4 weeks Plan Of Treatment Pending Test Test Name Order Date Culture Urine [id number] 06/11/2025 PSA Diagnostic--[id number] 05/26/2024 MRI Pelvis w/ + w/o Cont-[id number] Future Test Test Name Order Date CBC w\ Auto Diff [id number] 06/05/2025 Comprehensive Metabolic Panel (CMP) 8005 3 06/05/2025 CT Abdomen w/o Contrast-[id number] 06/05/2025 CBC w\ Auto Diff [id number] 10/05/2025 Comprehensive Metabolic Panel (CMP) 8005 3 10/05/2025 PSA Diagnostic--[id number] 10/05/2025 US Renal w/bladder-[id number] 10/05/2025 Next Appt Details Provider Name:Nury andrews, 10/19/2025 01:15:00 PM, [address] [place] [address], [place], [address], Provider Name:Ila Godwin, 10/24/2025 01:00:00 PM, [address], [place], [address], Insurance Providers Payer Name Payer Address Payer Phone Subscriber Number Group Number Insured Name Patient Relationship to Insured Coverage Start Date Coverage End Date [employer] [address] [place] [phone] [id number] Aki Deal Self - patient is the insured Out of Network [facility] [employer] [address] [address] [place] [address] [id number] Aki Deal Self - patient is the [...]
--- OUTSIDE RECORDS SUMMARY | 2025-09-16 17:15 | XMS_ITS | Encounter Summary ---
Author Organization [facility] Address [address] [place] [address] Phone Care Team Providers Care Core Laying Machine Operator Name Role Phone Trisha Urena MD Primary Care Provider [phone] Encounter Details Date Type Department Care Team (Late st Contact Info) Description 09/14/2025 Transcribe Orders [facility] [address] [place] [address] Judy Sinha [address] [place] [address] Social History Tobacco Use Types Packs/Day Years Used Date Smoking Tobacco: Never Smokeless Tobacco: Never Alcohol Use Standard Drinks/Week Comments Not Currently [...] Diagnoses Not on filedocumented in this encounter Care Teams Core Laying Machine Operator Relationship Specialty Start Date End Date Trisha Urena MD [address] [place] [address] PCP - General Family Medicine 05/20/23 documented as of this encounter
--- OUTSIDE RECORDS SUMMARY | 2025-09-16 17:15 | XMS_ITS | CCD ---
Author Name Interface, [id number] Address [address], [place] [address] Organization [facility] Address [facility], [place] [address] Reason for Visit Social History Date Name Value 04/12/2025 Sex Male
--- OUTSIDE RECORDS SUMMARY | 2025-09-16 17:16 | XMS_ITS | Encounter Summary ---
Author Organization [facility] Address [address] [facility] [address] [place] [address] Phone Care Team Providers Care Technical Coordinator Name Role Phone Trisha Urena MD Primary Care Provider [phone] Encounter Details Date Type Department Care Team (Late st Contact Info) Description 02/19/2023 Orders Only [facility] [address] [place] [address] Chronic kidney disease, not otherwise specified Social History Tobacco Use Types Packs/Day Years Used Date Smoking Tobacco: Never Assessed Sex and Gender Information Value Date Recorded Sex Assigned at Not on file Legal Sex Male 2:05 PM EDT Gender Identity Not on file Sexual Orientation Not on file documented as of this encounter Plan of Treatment Not on file documented as of this encounter Visit Diagnoses Diagnosis Chronic kidney disease, not otherwise specified documented in this encounter Care Teams Technical Coordinator Relationship Specialty Start Date End Date Trisha Urena MD [address] [place] [address] PCP - General Family Medicine 05/20/23 documented as of this encounter
--- OUTSIDE RECORDS SUMMARY | 2025-09-16 17:16 | XMS_ITS | Data Portability ---
Author Organization [facility] - Leoncio Paul [facility] Kayla Marr [facility] Address [address] [place] [address] [address] [place] [address] Assessment No assessment recorded. Plan of Treatment [...] Modified By Organization Details Last Modified Time 06/15/2025 [id number] will request records from [place]; doing well; pain controlled; Labs on Thursday. [email or web address] Not available 06/19/2025 14:46:41 06/22/2025 [id number] patient evaluate d in ER as PICC line was occluded. Replaced and working properly now. [email or web address] Not available 06/28/2025 12:25:11 07/10/2025 [id number] Pain worse over the weekend, but improved now. Staff to monitor. [email or web address] Not available 07/10/2025 14:39:50 08/14/2025 [id number] Admitted with [facility] transferred to [place] for possible nephrostomy change, but limited records. will check labs and staff to track down records. [email or web address] Not available 08/14/2025 15:47:46 09/11/2025 [id number] Stomach upset. Will d/c metformin. Increase norco to QID prn. Start colace daily. [email or web address] Not available 09/13/2025 17:15:20 Reason for Referral None Reported. Problems Name Problem SNOMED Code Status Onset Date Resolution Date Notes Provider Name and Address Organization Details Recorded Time Hospital inpatient stay within past 30 days [id number] Active 2022 [facility], [facility] 3 12:23:24 Spinal stenosis of lumbar region 49766161 Active 2022 [facility], [facility] 3 12:23:25 Atrial fibrillati on 82751815 Active 2022 [facility], [facility] 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 3 12:23:27 Neurogenic urinary bladder 911439658 Active 2022 [facility], [facility] 3 12:23:29 Essential hypertensi on 63740393 Active 2022 [facility], [facility] 3 12:23:30 Difficulty sleeping 595607475 Active 2022 [facility], [facility] 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 3 12:10:22 Uncontroll ed type 2 diabetes mellitus 309483836 Active 2022 [facility], [facility] 3 12:10:23 Acute urinary tract infection 410404868 Active 2022 [facility], [facility] 3 12:10:26 Sepsis 61173019 Active 2022 [facility], [facility] 3 15:15:01 Metabolic encephalop athy 78984799 Active 2022 [facility] TODD [facility] 3 15:15:02 Pneumonia 269835326 Active 2022 [facility], [facility] 3 15:15:02 Acute pyelonephr itis 94218903 Active 2022 [facility], [facility] 3 15:15:04 Anemia due to blood loss 385349701 Active 2022 [facility] TODD [facility] 3 15:15:06 Need for personal care assistance [id number] 9106 Active 2023 [facility] TODD [facility] 4 13:09:05 Chronic pain 69894753 Active 2023 [facility] TOD[facility] 4 15:47:08 Osteomyeli tis 30775616 Active 2023 [facility] TOD[facility] 4 12:18:14 Lumbar discitis 704437137 Active 2023 [facility] TOD[facility] 4 12:18:29 Urinary tract infectious disease 60080535 Active 2024 [facility] TOD[facility] 5 15:46:49 Problem Notes None recorded. Medical [...] sent to pharmacy . *dose increase *; 54387; Recorded 01/22/20 22 12:43PM by Jackeline Todd [...] Updated DateTime 5 172.72 cm 26.6 kg/m2 64248.6 6 g 75 /min 16 /min 98 [degF] 98 % 118/52 mm[Hg] [facility] 5 14:39:53 Date Recorded Body height Body mass index (BMI) Body weight Heart rate Respiratory rate Body temperature Oxygen saturation Systolic And Diastolic Provider Name and Address Organization Details Last Updated DateTime 5 172.72 cm 26.6 kg/m2 40490.6 6 g 77 /min 16 /min 98 [degF] 97 % 132/66 mm[Hg] [facility] 5 12:44:14 Date Recorded Body height Body mass index (BMI) Body weight Heart rate Respiratory rate Body temperature Oxygen saturation Systolic And Diastolic Provider Name and Address Organization Details Last Updated DateTime 5 172.72 cm 26.8 kg/m2 24180.2 6 g 73 /min 20 /min 98.3 [degF] 99 % 134/75 mm[Hg] [facility] 5 14:37:45 Date Recorded Body height Body mass index (BMI) Body weight Heart rate Respiratory rate Body temperature Oxygen saturation Systolic And Diastolic Provider Name and Address Organization Details Last Updated DateTime 5 172.72 cm 26.6 kg/m2 33731.6 6 g 63 /min 20 /min 97.8 [degF] 96 % 115/79 mm[Hg] [facility] 5 15:45:05 Date Recorded Body height Body mass index (BMI) Body weight Heart rate Respiratory rate Body temperature Oxygen saturation Systolic And Diastolic Provider Name and Address Organization Details Last Updated DateTime 5 172.72 cm 26.2 kg/m2 49015.8 9 g 76 /min 12 /min 97.9 [degF] 97 % 104/58 mm[Hg] [facility] 5 10:26:59 Social History None recorded. Functional Status None recorded. Mental Status None recorded. Family History Nothing Reported. Medical History No medical history recorded. Immunizations Vaccine Type Date Status Note Provider Nam e and Address Organization Details Recorded Time zoster live 9 completed Not Available [facility] 09/11/2025 14:18:29 pneumococcal polysaccharide PPV23 1 completed Not Available [facility] 09/11/2025 14:18:29 pneumococcal polysaccharide PPV23 4 completed Not Available [facility] 09/11/2025 14:18:29 Tdap 4 completed Not Available [facility] 09/11/2025 14:18:29 Pneumococcal conjugate PCV 13 5 completed Not Available [facility] 09/11/2025 14:18:29 pneumococcal polysaccharide PPV23 6 completed Not Available [facility] 09/11/2025 14:18:29 Tdap 2 completed Not Available [facility] 09/11/2025 14:18:29 zoster recombinant 2 completed Not Available [facility] 09/11/2025 14:18:29 zoster recombinant 3 completed Not Available [facility] 09/11/2025 14:18:29 Influenza, split virus, quadrivalent, PF 3 completed Not Available [facility] 09/11/2025 14:18:29 Influenza, split virus, trivalent, preservative 0 completed Not Available [facility] 05/02/2023 02:33:15 Past Encounters Encounter ID Performer Location Encounter Start Date Encounter Closed Date Diagnosis/Indication Diagnosis SNOMED-CT Code Diagnosis ICD10 Code Diagnosis IMO Codes Diagnosis Note [id number] Vinnie Garcia DO [facility]) [address] [place] [address]92-359 5 05/28/2023 12:14:45 05/28/2023 12:32:08 Hospital inpatient stay within past 30 days [id number] 106 Z76.89 Spinal marga nosis of lumbar region 36257103 M48.062 Atrial fibrillation 4943 6004 I48.91 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 0459178339 05011 E11.65 Neurogenic urinary bladder 514975514 N31.9 Essential hypertension 47194935 I10 [id number] Vinnie Garcia [facility]) [address] [place] [address] 34828-678 5 06/04/2023 09:49:04 06/14/2023 17:41:25 Difficulty sleeping 215882098 Z72.231 [id number] Vinnie Garcia DO [facility]) [address] [place] [address] [id number] 5 06/23/2023 08:28:47 06/25/2023 15:01:57 Spinal stenosis of lumbar region 65048312 M48.062 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 2106007651 85513 E11.65 Atrial fibrillation 4943 6004 I48.91 Neurogenic urinary bladder 567425045 N31.9 [id number] Vinnie Garcia [facility]) [address] [place] [address] 51074-040 5 07/21/2023 09:10:19 08/02/2023 19:30:15 Hospital inpatient stay within past 30 days 9477786174 106 Z76.89 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 2803212 I11.0 Uncontroll ed type 2 diabetes mellitus 721638671 E11.65 Atrial fibrillation 4943 6004 I48.91 Acute urin viola tract infection 000033377 N39.0 [id number] Vinnie Garcia DO [facility] ([facility]) [address] [place], [place] [address] 08/04/2023 13:51:30 08/05/2023 08:38:35 Spinal stenosis of lumbar region 95350957 M48.062 Difficulty sleeping 3013 35127 Z72.934 [id number] Vinnie Garcia DO [facility] ([facility]) [address] [place] [address] 35377-984 5 08/11/2023 08:12:12 08/17/2023 15:36:55 Hospital inpatient stay within past 30 days 7380865153 106 Z76.89 Sepsis 43857408 A41.9 Metabolic encephalopathy 79564659 G93.41 Pneumonia 378285194 J18. 9 Acute pyelonephritis 366 51788 N10 Anemia due to blood loss 032315368 D50.0 [id number] Vinnie Garcia DO [facility] ([facility]) [address] [place] [address] 21805-051 5 08/13/2023 08:23:16 08/23/2023 20:29:11 Spinal stenosis of lumbar region 94918852 M48.062 Difficulty sleeping 3013 54385 Z72.820 Acute pyelonephritis 366 72358 N10 Atrial fibrillation 4943 6004 I48.91 [id number] Vinnie Garcia DO [facility] ([facility]) [address] [place], [place] [address] 09/08/2023 08:20:56 09/11/2023 13:25:11 Spinal stenosis of lumbar region 18137049 M48.062 Neurogenic urinary bladder 946514609 N31.9 Atrial fibrillation 4943 6004 I48.91 Essential hypertension 80064637 I10 [id number] Vinnie Garcia DO [facility] ([facility]) [address] [place], [place] [address] 09/22/2023 08:49:25 10/11/2023 20:20:29 Acute urinary tract infection 804911542 N39.0 [id number] Vinnie Garcia DO [facility] ([facility]) [address] [place] [address] 18069-980 5 10/13/2023 07:55:28 10/14/2023 09:02:24 [id number] Vinnie Garcia DO [facility] ([facility]) [address] [place] [address] 17107[address]579 5 10/20/2023 12:08:00 10/21/2023 14:19:12 Hospital inpatient stay within past 30 days 2682590753 106 Z76.89 Acute pyelonephritis 366 30857 N10 Essential hypertension 24334469 I10 Neurogenic urinary bladder 354097112 N31.9 Jose Luis hematuria 35035739 5 R31.0 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 8714089379 49904 E11.65 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 5401431 I11.0 Atrial fibrillation 4943 6004 I48.91 Need for [facility] care assistance [id number] 7496203 Z74.1 [id number] Vinnie Garcia DO [facility] ([facility]) [address] [place] [address] 15668-433 5 11/03/2023 08:40:18 11/17/2023 08:02:09 Spinal stenosis of lumbar region 31233405 M48.062 Difficulty sleeping 3013 77231 Z72.820 Atrial fibrillation 4943 6004 I48.91 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 1077491 I11.0 Metabolic encephalopathy 26997356 G93.41 [id number] DO AWILDA Flores ([facility]) [address] [place] [address]70-105 5 11/17/2023 08:11:46 11/23/2023 12:00:37 Acute urinary tract infection 282825825 N39.0 [id number] DO AWILDA Flores ([facility]) [address] [place] [address] 70822-286 5 12/22/2023 08:17:30 12/24/2023 10:58:55 Uncontrolled type 2 diabetes mellitus 463534691 E11.65 Atrial fibrillation 4943 6004 I48.91 [id number] Vinnie Garcia DO [facility] ([facility]) [address] [place] [address] 58721-892 5 12/31/2023 08:25:54 12/31/2023 14:23:43 [id number] Vinnie Garcia DO [facility] ([facility]) [address] [place] [address] 01/12/2024 08:56:47 01/13/2024 10:08:49 [id number] Vinnie Garcia DO [facility] ([facility]) [address] [place] [address] 01/12/2024 11:36:10 01/14/2024 10:54:27 Need for personal care assistance 9401370796 2122974 Z74.1 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 5801701697 18271 E11.65 Atrial fibrillation 4943 6004 I48.91 Neurogenic urinary bladder 609201132 N31.9 [id number] Vinnie Garcia DO [facility] ([facility]) [address] [place] [address] 02/16/2024 08:06:58 02/17/2024 08:34:42 [id number] Vinnie Garcia DO [facility] ([facility]) [address] [place] [address] 03/03/2024 14:43:36 03/08/2024 10:00:49 Hypertensive heart disease with congestive heart failure 4503402 I11.0 [id number] Vinnie Garcia DO [facility] ([facility]) [address] [place] [address] 03/17/2024 09:35:21 03/21/2024 11:43:22 [id number] Vinnie Garcia DO [facility] ([facility]) [address] [place] [address] 03/22/2024 13:32:15 08/17/2024 12:52:07 [id number] NATA JUAREZ PA-C [facility] ([facility]) [address] [place] [address] 03/23/2024 12:47:26 04/10/2024 22:57:16 Sepsis 10986888 A41.9 etapenem and fluconazol e Acute urin viola tract infection 550395570 N39.0 hospital records reviewed and meds reconciled . pt is doing well. continue current meds and therapy [id number] Vinnie Garcia DO [facility] ([facility]) [address] [place] [address] 03/29/2024 08:20:20 03/30/2024 08:39:55 [id number] Vinnie Garcia DO [facility] ([facility]) [address] [place] [address] 5 03/31/2024 11:01:06 03/31/2024 17:44:40 Hospital inpatient stay within past 30 days 4743104508 106 Z76.89 Metabolic encephalopathy 44887393 G93.41 Acute urin viola tract infection 979133326 N39.0 [id number] Vninie Garcia DO [facility] ([facility]) [address] [place] [address] 04/12/2024 08:14:54 04/12/2024 18:01:31 Hospital inpatient stay within past 30 days 2995863995 106 Z76.89 Acute pyelonephritis 366 89699 N10 Acute urin viola tract infection 580251382 N39.0 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 1005355 I11.0 [id number] Vinnie Garcia DO [facility] ([facility]) [address] [place] [address] 67[address]-429 5 04/26/2024 12:28:28 04/26/2024 15:48:19 Neurogenic urinary bladder 447947009 N31.9 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 4119196918 55011 E11.65 Atrial fibrillation 4943 6004 I48.91 Essential hypertension 79787338 I10 [id number] Vinnie Garcia DO [facility] ([facility]) [address] [place] [address] 05/03/2024 08:14:45 05/04/2024 08:41:49 [id number] Vinnie Garcia DO [facility] ([facility]) [address] [place] [address] 69691-447 5 05/05/2024 08:27:21 05/05/2024 15:42:04 Hospital inpatient stay within past 30 days 2170965722 106 Z76.89 Osteomyelitis 76134648 M 86.9 Lumbar discitis 88507262 2 M46.46 Neurogenic urinary bladder 732963238 N31.9 [id number] Vinnie Garcia DO [facility] ([facility]) [address] [place] [address] 28476-608 5 05/17/2024 08:30:30 05/17/2024 15:38:29 Hyperglycemia due to type 2 diabetes mellitus 9025430485 60017 E11.65 Lumbar discitis 11862575 2 M46.46 Atrial fibrillation 4943 6004 I48.91 [id number] Vinnie Garcia DO [facility] ([facility]) [address] [place] [address] 51859-564 5 05/24/2024 08:53:24 05/24/2024 17:01:30 Acute urinary tract infection 288740488 N39.0 Atrial fibrillation 4943 6004 I48.91 Chronic pain 90838516 G8 9.29 [id number] Vinnie Garcia DO [facility] ([facility]) [address] [place] [address] 20151-499 5 05/31/2024 13:56:48 05/31/2024 16:31:26 Neurogenic urinary bladder 842494167 N31.9 [id number] Vinnie Garcia DO [facility] ([facility]) [address] [place] [address] 36372-493 5 06/07/2024 12:03:54 06/07/2024 16:23:12 Lumbar discitis 401266822 M46.46 Difficulty sleeping 3013 09099 Z72.820 Atrial fibrillation 4943 6004 I48.91 [id number] Vinnie Garcia DO [facility] ([facility]) [address] [place] [address] 42941-560 5 06/16/2024 08:27:14 06/16/2024 16:12:57 Neurogenic urinary bladder 679191240 N31.9 [id number] Vinnie Garcia DO [facility] ([facility]) [address] [place] [address] 17015-457 5 06/30/2024 08:12:55 07/03/2024 13:51:10 [id number] Vinnie Garcia DO [facility] ([facility]) [address] [place] [address] 20390-910 5 11/21/2024 14:33:52 11/29/2024 07:36:51 Hospital inpatient stay within past 30 days 8827060962 106 Z76.89 Essential hypertension 51876317 I10 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 6185351824 20013 E11.65 [id number] Vinnie Garcia DO [facility] ([facility]) [address] [place] [address] 06271-862 5 12/05/2024 14:47:47 12/09/2024 07:25:39 Hospital inpatient stay within past 30 days 5883644197 106 Z76.89 Metabolic encephalopathy 12319239 G93.41 Acute kidney injury 1466 9001 N17.9 Acute urin viola tract infection 945978846 N39.0 Osteomyelitis 75980141 M 86.9 vertebral [id number] Vinnie Garcia DO [facility] ([facility]) [address] [place] [address] 84307-961 5 12/19/2024 14:48:31 12/21/2024 06:52:41 Flatulence, eructation and gas pain 125591891 R14.1 Abdominal pain 91907092 R10.9 [id number] Vinnie Garcia DO [facility] ([facility]) [address] [place] [address] 42739-055 5 12/29/2024 09:31:53 01/03/2025 07:10:38 Hospital inpatient stay within past 30 days 0804817533 106 Z76.89 Lumbar discitis 09762770 2 M46.46 Metabolic encephalopathy 94252566 G93.41 Uncontroll ed type 2 diabetes mellitus 792759762 E11.65 [id number] Vinnie Garcia DO [facility] ([facility]) [address] [place] [address] 22674-211 5 2025 12:25:55 02/14/2025 17:18:12 Chronic pain 03050148 G89.29 Generalize d abdominal pain 007836355 R10.84 117944 [id number] Vinnie Garcia [facility]) [address] [place] [address] 40293-519 5 03/16/2025 11:01:51 03/27/2025 16:54:18 Spinal stenosis of lumbar region 02278096 M48.062 Lumbar discitis 12523564 2 M46.46 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65 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 1610058 I11.0 Essential hypertension 01296510 I10 Atrial fibrillation 4943 6004 I48.91 [id number] Vinnie Garcia DO [facility] ([facility]) [address] [place] [address] 48010-817 5 06/15/2025 12:16:39 06/20/2025 10:33:14 Hospital inpatient stay within past 30 days 2981368406 106 Z76.89 Acute urin viola tract infection 070546414 N39.0 [id number] [id number] Vinnie Garcia DO [facility] ([facility]) [address] [place], [place] [address] 06/22/2025 09:39:44 06/28/2025 12:52:37 Spinal stenosis of lumbar region 42151432 M48.062 Atrial fibrillation 4943 6004 I48.91 Essential hypertension 65385321 I10 Displaceme nt of nephrostomy tube 675301513 T83.022A 020372 Blocked catheter 1110340 005 T82.898D [id number] Vinnie Garcia [facility] ([facility]) [address] [place] [address] 23786-593 5 07/10/2025 14:20:27 07/11/2025 15:26:48 Lumbar discitis 031833962 M46.46 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 9608680058 66995 E11.65 Neurogenic urinary bladder 918713370 N31.9 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 1585425 I11.0 Atrial fibrillation 4943 6004 I48.91 [id number] Vinine Garcia DO [facility] ([facility]) [address] [place] [address] 08/14/2025 13:22:40 08/17/2025 16:49:52 Hospital inpatient stay within past 30 days 6944378737 106 Z76.89 Urinary tr act infectious disease 88887336 N39.0 [id number] 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 0057380 I11.0 Essential hypertension 11741529 I10 Atrial fibrillation 4943 6004 I48.91 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 7043094938 57739 E11.65 [id number] Vinnie DO Jose [facility] ([facility]) [address] [place] [address] 09/11/2025 14:18:21 09/14/2025 16:53:17 Spinal stenosis of lumbar region 02664001 M48.062 Lumbar discitis 54460323 2 M46.46 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 1518625811 45172 E11.65 Atrial fibrillation 4943 6004 I48.91 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 2140062 I11.0 Health Concerns Section Related Observation LastModified by Organization Detai ls LastModified Time None Recorded Concern Status LastModified by Organization Details LastModified Time None Recorded Advance Directives Directive None Recorded Payers Insurance Date Sequence Insurance Name Policy Number Policy Mueller Covered Member ID Mueller Member ID Guarantor Name 05/28/2023 1 *SELF PAY* Mi domenico Deal 06/15/2025 [facility] Raphael Deal [id number] Raphael Deal 06/15/2025 1 [employer] (MEDICARE REPLACEMENT/ ADVANTAGE - PPO) Raphael Deal [id number] Raphael Deal Notes Date Note Type Note Provider Name and Address Organization Details Recorded Time text/html HypertensionReported by PatientHPIFor severity, patient reportsgrade 1 (130-139/80-89). For duration, patient reportshas noted for years. For alleviating factors, patient reportsmedication.ROS as noted in the HPI new admit to SNF after hospital stay. Vinnie Garcia DO [address] [place] [address], [phone], [facility] 06/19/2025 14:46:53 5 text/html HypertensionReported by PatientHPIFor severity, patient reportsgrade 1 (130-139/80-89). For duration, patient reportshas noted for years. For alleviating factors, patient reportsmedication.ROS as noted in the HPI ER follow up Vinnie Garcia DO [address] [place] [address], [phone], [facility] 06/28/2025 12:25:39 5 text/html HypertensionReported by PatientHPIFor severity, patient reportsgrade 1 (130-139/80-89). For duration, patient reportshas noted for years. For alleviating factors, patient reportsmedication.ROS as noted in the HPI no complains per staff, patient complains of worsening pain over the weekend. Vinnie Garcia DO [address] [place] [address], [phone], [facility] 07/10/2025 14:41:06 5 text/html HypertensionReported by PatientHPIFor severity, patient reportsgrade 1 (130-139/80-89). For duration, patient reportshas noted for years. For alleviating factors, patient reportsmedication.ROS as noted in the HPI re-admit to snf, after hospital stay for UTI. Vinnie Garcia DO [address] [place] [address], [phone], [facility] 08/16/2025 14:54:05 5 text/html HypertensionReported by PatientHPIFor severity, patient reportsgrade 1 (130-139/80-89). For duration, patient reportshas noted for years. For alleviating factors, patient reportsmedication.ROS as noted in the HPI c/o worsening. Vinnie Garcia, [address], [phone], [facility] 09/13/2025 17:15:32
--- OUTSIDE RECORDS SUMMARY | 2025-09-16 17:16 | XMS_ITS | Continuity of Care Document ---
Author Organization [facility] Kayla Marr, [facility] ([facility]) Address [address] [place] [address] Assessment No assessment recorded. Plan of Treatment [...] Modified By Organization Details Last Modified Time 07/10/2025 [id number] Pain worse over the weekend, but improved now. Staff to monitor. [email or web address] Not available 07/10/2025 14:39:50 Reason for Referral None Reported. 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 3 12:23:29 Essential hypertensi on 54979416 Active 2022 [facility], [facility] 3 12:23:30 Difficulty sleeping 832527716 Active 2022 [facility], [facility] 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 3 12:10:22 Uncontroll ed type 2 diabetes mellitus 675922895 Active 2022 [facility], [facility] 3 12:10:23 Acute urinary tract infection 386296832 Active 2022 [facility], [facility] 3 12:10:26 Sepsis 33687163 Active 2022 [facility], [facility] 3 15:15:01 Metabolic encephalop athy 29581823 Active 2022 [facility], [facility] 3 15:15:02 Pneumonia 265940509 Active 2022 [facility], [facility] 3 15:15:02 Acute pyelonephr itis 74683679 Active 2022 [facility], [facility] 3 15:15:04 Anemia due to blood loss 755184480 Active 2022 [facility], [facility] 3 15:15:06 Need for personal care assistance 7451945459032 9106 Active 2023 [facility], [facility] 4 13:09:05 Chronic pain 75913911 Active 2023 [facility], [facility] 4 15:47:08 Osteomyeli tis 28414658 [facility] 12:18:14 Lumbar discitis 270073212 [facility] 4 12:18:29 Urinary tract infectious disease 54955812 [facility] 5 15:46:49 Problem Notes None recorded. [...] sent to pharmacy . *dose increase *; 09726; Recorded 01/22/20 22 12:43PM by Jackeline Todd [...] Updated DateTime 5 172.72 cm 26.8 kg/m2 67188.2 6 g 73 /min 20 /min 98.3 [degF] 99 % 134/75 mm[Hg] [facility], [facility] 5 14:37:45 Social History None recorded. Functional Status None recorded. Mental Status None recorded. Family History Nothing Reported. Medical History No medical history recorded. Immunizations Vaccine Type Date Status Note Provider Nam e and Address Organization Details Recorded Time zoster live 9 completed Not Available [facility] 09/11/2025 14:18:29 pneumococcal polysaccharide PPV23 1 completed Not Available [facility] 09/11/2025 14:18:29 pneumococcal polysaccharide PPV23 4 completed Not Available [facility] 09/11/2025 14:18:29 Tdap 4 completed Not Available [facility] 09/11/2025 14:18:29 Pneumococcal conjugate PCV 13 5 completed Not Available [facility] 09/11/2025 14:18:29 pneumococcal polysaccharide PPV23 6 completed Not Available [facility] 09/11/2025 14:18:29 Tdap 2 completed Not Available [facility] 09/11/2025 14:18:29 zoster recombinant 2 completed Not Available [facility] 09/11/2025 14:18:29 zoster recombinant 3 completed Not Available [facility] 09/11/2025 14:18:29 Influenza, split virus, quadrivalent, PF 3 completed Not Available [facility] 09/11/2025 14:18:29 Influenza, split virus, trivalent, preservative 0 completed Not Available [facility] 05/02/2023 02:33:15 Past Encounters Encounter ID Performer Location Encounter Start Date Encounter Closed Date Diagnosis/Indication Diagnosis SNOMED-CT Code Diagnosis ICD10 Code Diagnosis IMO Codes Diagnosis Note [id number] Vinnie Garcia DO [facility] ([facility]) [address] [place] [address] 06/15/2025 12:16:39 06/20/2025 10:33:14 Hospital inpatient stay within past 30 days [id number] 106 Z76.89 Acute urin viola tract infection 080461701 N39.0 724858 [id number] Vinnie Garcia DO [facility] ([facility]) [address] [place] [address] 06/22/2025 09:39:44 06/28/2025 12:52:37 Spinal stenosis of lumbar region 12596591 M48.062 Atrial fibrillation 4943 6004 I48.91 Essential hypertension 94842214 I10 Displaceme nt of nephrostomy tube 409744271 T83.022A 863552 Blocked catheter 4293826 005 T82.898D 05245071 [id number] Vinnie Garcia DO [facility] ([facility]) [address] [place] [address] 07/10/2025 14:20:27 07/11/2025 15:26:48 Lumbar discitis 903294176 M46.46 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 Vinnie Garcia DO [address] [place] [address], [phone], [facility] 07/10/2025 14:41:06
--- OUTSIDE RECORDS SUMMARY | 2025-09-16 17:16 | XMS_ITS | Continuity of Care Document ---
Author Organization [facility] Tejinder, Kayla, [facility] ([facility]) Address [address] [place] [address] Assessment No assessment recorded. Plan of Treatment [...] Modified By Organization Details Last Modified Time 08/14/2025 [id number] Admitted with [place] transferred to [facility] for possible nephrostomy change, but limited records. will check labs and staff to track down records. [email or web address] Not available 08/14/2025 15:47:46 Reason for Referral None Reported. 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 3 12:23:29 Essential hypertensi on 42725722 Active 2022 [facility], [facility] 3 12:23:30 Difficulty sleeping 591452178 Active 2022 [facility], [facility] 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 3 12:10:22 Uncontroll ed type 2 diabetes mellitus 005378769 Active 2022 [facility], [facility] 3 12:10:23 Acute urinary tract infection 822241097 Active 2022 [facility], [facility] 3 12:10:26 Sepsis 00433185 Active 2022 [facility] 3 15:15:01 Metabolic encephalop athy 71007251 Active 2022 [facility], [facility] 3 15:15:02 Pneumonia 638795590 Active 2022 [facility], [facility] 3 15:15:02 Acute pyelonephr itis 09934766 Active 2022 [facility], [facility] 3 15:15:04 Anemia due to blood loss 744261095 Active 2022 [facility], [facility] 3 15:15:06 Need for personal care assistance 9821038406832 9106 [facility] 4 13:09:05 Chronic pain 35875948 [facility] 4 15:47:08 Osteomyeli tis 55651513 [facility] 4 12:18:14 Lumbar discitis 112804452 [facility] 4 12:18:29 Urinary tract infectious disease 45249813 [facility] 5 15:46:49 Problem Notes None [...] sent to pharmacy . *dose increase *; 48355; Recorded 01/22/20 22 12:43PM by Jackeline Todd [...] Updated DateTime 5 172.72 cm 26.6 kg/m2 98572.6 6 g 63 /min 20 /min 97.8 [degF] 96 % 115/79 mm[Hg] [facility] 5 15:45:05 Social History None recorded. Functional Status None recorded. Mental Status None recorded. Family History Nothing Reported. Medical History No medical history recorded. Immunizations Vaccine Type Date Status Note Provider Nam e and Address Organization Details Recorded Time zoster live 9 completed Not Available [facility] 09/11/2025 14:18:29 pneumococcal polysaccharide PPV23 1 completed Not Available [facility] 09/11/2025 14:18:29 pneumococcal polysaccharide PPV23 4 completed Not Available [facility] 09/11/2025 14:18:29 Tdap 4 completed Not Available [facility] 09/11/2025 14:18:29 Pneumococcal conjugate PCV 13 5 completed Not Available [facility] 09/11/2025 14:18:29 pneumococcal polysaccharide PPV23 6 completed Not Available [facility] 09/11/2025 14:18:29 Tdap 2 completed Not Available [facility] 09/11/2025 14:18:29 zoster recombinant 2 completed Not Available [facility] 09/11/2025 14:18:29 zoster recombinant 3 completed Not Available [facility] 09/11/2025 14:18:29 Influenza, split virus, quadrivalent, PF 3 completed Not Available [facility] 09/11/2025 14:18:29 Influenza, split virus, trivalent, preservative 0 completed Not Available [facility] 05/02/2023 02:33:15 Past Encounters Encounter ID Performer Location Encounter Start Date Encounter Closed Date Diagnosis/Indication Diagnosis SNOMED-CT Code Diagnosis ICD10 Code Diagnosis IMO Codes Diagnosis Note [id number] Vinnie Garcia DO [facility] ([facility]) [address] [place] [address] 08/14/2025 13:22:40 08/17/2025 16:49:52 Hospital inpatient stay within past 30 days [id number] 106 Z76.89 Urinary tr act infectious disease 77479995 N39.0 [id number] 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 3238402 I11.0 Essential hypertension 66994980 I10 Atrial fibrillation 4943 6004 I48.91 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 Vinnie Garcia DO [address] [place] [address], [phone], WILLEM [facility] [employer] Kayla Marr 08/16/2025 14:54:05
[2025-09-16 17:17] VITALS: BP 161/100; PULSE 79; RESP 22; TEMP 36.8; O2SAT 100
[2025-09-16 17:34] LABS: Hematocrit 34.8 % (37-53); Hemoglobin 11.10 g/dL (11.27-16.99); Mean Corpuscular HGB Conc 31.9 g/dL (30-55); Mean Corpuscular Hemoglobin 26.9 pg (27-33); Mean Corpuscular Volume 84.3 fl (82-101); Nucleated Red Blood Cells % 0 %; Platelet Count 462 10^3/cmm (157-399); Red Blood Count 4.13 10^6/uL (3.85-5.65); White Blood Count 13.86 10^3/uL (3.29-11.43)
[2025-09-16 17:41] LABS: Glucose Urine UA Negative (Normal); Nitrate Urine Negative (Negative); Specific Gravity, Urine 1.013 (1.005-1.030)
[2025-09-16 17:47] LABS: Alanine Aminotransferase 7 U/L (0-41); Albumin Level 3.8 g/dL (3.5-5.2); Alkaline Phosphatase 124 U/L (40-130); Anion Gap 23.4 (5-19); Aspartate Amino Transferase 12 U/L (0-40); Blood Urea Nitrogen 17 mg/dL (8-23); Calcium 9.3 mg/dL (8.5-10.5); Carbon Dioxide 19 mmol/L (22-29); Chloride 103 mmol/L (98-107); Globulin 3.7 g/dL (1.3-4.6); Glucose 155 mg/dL (65-115); Osmolality Calculated 299 mOsm/kg (285-295); Potassium 3.4 mmol/L (3.5-5.1); Sodium 142 mmol/L (136-145); Total Protein 7.5 g/dL (6.6-8.7)
[2025-09-16 17:49] LABS: Universal Test for UA Present (0)
[2025-09-16 18:04] LABS: Lactic Sepsis W/Reflex 4.8 mmol/L (0.5-2.2)
--- NOTE | 2025-09-16 18:16 | CTR_ITS ---
PROCEDURE INFORMATION: Exam: CT Abdomen And Pelvis With Contrast Exam date and time: 09/16/2025 6:27 PM Age: 75 years old Clinical indication: Pain and abnormal findings; Abnormal lab test; Elevated wbc; Abdominal pain; Localized; Prior surgery; Surgery date: 6+ months; Surgery type: Bilat nephrostomy. Appy. C/O lower abd and rectal pain. Has sacral ulcer. Leukocytosis with elevated lactic acid. History of prostate cancer. ; Additional info: Abd pain, rectal pain lactic acidosis TECHNIQUE: Imaging protocol: Computed tomography of the abdomen and pelvis with contrast. Radiation optimization: All CT scans at this facility use at least one of these dose optimization techniques: automated exposure control; mA and/or kV adjustment per patient size (includes targeted exams where dose is matched to clinical indication); or iterative reconstruction. Contrast material: OMNI 350; Contrast volume: 100 ml; Contrast route: INTRAVENOUS (IV); COMPARISON: CT abdomen pelvis w con* [id number] 08/06/2025 10:17 PM RADIATION DOSE METRICS: Total DLP (mGy-cm): 697.6 FINDINGS: Tubes, catheters and devices: Mild hydronephrosis on the right with nephrostomy catheter in place. Left nephrostomy tube with collecting system relatively decompressed. Liver: Normal. No mass. Gallbladder and biliary ducts: Normal. No calcified stones. No ductal dilation. Pancreas: Normal. No ductal dilation. Spleen: Normal. No splenomegaly. Adrenal glands: Normal. No mass. Kidneys and ureters: Residual moderate right hydroureteronephrosis. Stomach and bowel: [id number]-weypzbjp rectal distension with stool, with mild perirectal inflammatory changes, stercoral colitis not excluded. Appendix: No evidence of appendicitis. Intraperitoneal space: Unremarkable. No free air. No significant fluid collection. Vasculature: Aortic and coronary atherosclerosis gallstones without definite significant acute inflammatory changes. Aortic atherosclerosis. Lymph nodes: Unremarkable. No enlarged lymph nodes. Urinary bladder: Collapsed bladder. Reproductive: Unremarkable as visualized. Bones/joints: Moderate to severe degenerative changes of the lumbar vertebral bodies. Soft tissues: Unremarkable. Other findings: Skin thickening and skin defect overlying the tip of the right aspect of the sacrum compatible with known sacral ulcer. CT/CT abdomen pelvis w con* [id number] IMPRESSION: 1. Mild hydronephrosis on the right with nephrostomy catheter in place. 2. Residual moderate right hydroureteronephrosis. 3. Vzjc-pr-afuhkzmg rectal distension with stool, with mild perirectal inflammatory changes, stercoral colitis not excluded. 4. Left nephrostomy tube with collecting system relatively decompressed. 5. Skin thickening and skin defect overlying the tip of the right aspect of the sacrum compatible with known sacral ulcer.
[2025-09-16] MEDS: iohexol 350 mg/mL 500 mL Btl (per mL) IV (18:32)
[2025-09-16 18:36] LABS: Reflex Lactate Order REFLEX LACTIC ORDERD
[2025-09-16] MEDS: piperacillin-tazobactam 4.5 GM in sodium chloride 0.9% (plus) 50 ML IV (18:42)
[2025-09-16] MEDS: ondansetron 2 mg/ML SDV 2 mL 4 MG IVP (18:43)
[2025-09-16] MEDS: morphine 4 mg/mL SDV 1 mL IVP ×2 (18:43→21:56)
[2025-09-16 20:20] LABS: Lactic Acid level (Lactate) 1.5 mmol/L (0.5-2.2)
--- NOTE | 2025-09-16 20:22 | W.ED.ABDPA2 ---
HPI - Abdominal Pain General: Chief Complaint: Abdominal Pain Stated Complaint: abd pain Time Seen by Provider: 09/16/25 17:24 History of Present Illness: Patient is a 75-year-old male presenting with abdominal and rectal pain that has persisted for 3 days. The pain is constant, occurring both day and night, and has significantly impacted his ability to sleep and eat. Patient reports feeling like he needs to defecate but is unable to do so despite straining. He acknowledges having bowel movements yesterday and the day before, but states they were difficult to pass. Patient denies hematochezia but mentions 'white stuff' coming out recently. He denies vomiting, noting he hasn't been eating much. Patient reports having 'tubes in his sides' which he states aren't helping with his symptoms. He was apparently seen recently for similar complaints and was told his symptoms might be due to gas, but he feels there may be something else wrong. Patient denies fever, stating he 'hardly ever' gets fevers, but reports significant pain in his tailbone area. Related Data Home Medications ?Medication ?Instructions ?Recorded ?Confirmed fluticasone 100 mcg-salmeterol 50 1 inh inhalation BID 10/03/21 09/08/25 mcg/dose blistr powdr for inhalation (Wixela Inhub) acetaminophen 325 mg tablet 650 mg PO Q6H PRN Pain 07/02/23 09/08/25 (Tylenol) albuterol sulfate 90 mcg/actuation 2 puff inhalation Q4H PRN Dyspnea 04/27/24 09/08/25 aerosol inhaler furosemide 20 mg tablet 20 mg PO DAILY 04/27/24 09/08/25 atorvastatin 80 mg tablet 80 mg PO DAILY 11/26/24 09/08/25 digoxin 125 mcg (0.125 mg) tablet 125 mcg PO DAILY 11/26/24 09/08/25 fluticasone propionate 50 1 spray intranasal DAILY 11/26/24 09/08/25 mcg/actuation nasal spray,suspension hydrocodone 7.5 mg-acetaminophen 1 tab PO BID PRN Pain 11/26/24 09/08/25 325 mg tablet insulin lispro 100 unit/mL See Rx Instructions .Route .COMPLEX 11/26/24 09/08/25 subcutaneous pen metformin 500 mg tablet 500 mg PO DAILY 11/26/24 09/08/25 omeprazole 20 mg capsule,delayed 20 mg PO DAILY 11/26/24 09/08/25 release ondansetron HCl 4 mg tablet 4 mg PO TID PRN Nausea And Vomiting 11/26/24 09/08/25 fentanyl 100 mcg/hr transdermal 100 mcg transdermal .Q3D 06/06/25 09/08/25 patch fosfomycin tromethamine 3 gram See Rx Instructions .Route .COMPLEX 06/06/25 08/30/25 oral packet insulin glargine 100 unit/mL (3 25 unit SUBCUT DAILY 06/06/25 09/08/25 mL) subcutaneous pen (Lantus Solostar U-100 Insulin) insulin lispro 100 unit/mL 10 unit SUBCUT TIDWM 06/06/25 09/08/25 subcutaneous pen nystatin 100,000 unit/gram topical 1 applic topical TID 06/06/25 09/08/25 powder polyethylene glycol 3350 17 17 g PO DAILY PRN Constipation 06/06/25 09/08/25 gram/dose oral powder (Miralax) simethicone 125 mg capsule See Rx Instructions .Route 06/06/25 09/08/25 .COMPLEX PRN Gas ciprofloxacin HCl 500 mg tablet 500 mg PO .three times a week 08/30/25 09/08/25 (Cipro) ascorbic acid (vitamin C) 500 mg 1,000 mg PO DAILY 09/08/25 09/08/25 tablet (Vitamin C) honey 80 % topical gel (MediHoney 1 applic topical BID 09/08/25 09/08/25 (honey)) methenamine hippurate 1 gram tablet 1 g PO BID 09/08/25 09/08/25 Previous Rx's ?Medication ?Instructions ?Recorded flash glucose scanning reader #1 ea 08/25/23 (FreeStyle Jimi 2 Crawford) FreeStyle Jimi 2 Sensor (flash #6 ea 12/11/23 glucose sensor) blood-glucose sensor (Dexcom G7 #3 ea 02/08/24 Sensor device) blood-glucose,offshore diver,cont #1 ea 02/08/24 (Dexcom G7 Band Attacher) Lactobacillus acidophilus 25 25 cell (0 x 25 million cell) PO 09/08/25 million cell capsule DAILY 30 days #30 caps cephalexin 500 mg capsule 500 mg PO TID 10 days #30 caps 09/08/25 ciprofloxacin HCl 500 mg tablet 500 mg PO Q12H 7 days #14 tabs 09/16/25 lactulose 10 gram/15 mL oral 30 g (45 mL) PO BID #3,785 mL 09/16/25 solution (Constulose) magnesium citrate 300 ml PO DAILY #296 mL 09/16/25 metronidazole 500 mg tablet 500 mg PO BID 7 days #14 tabs 09/16/25 Allergies Allergy/AdvReac Type Severity Reaction Status Date / Time pollen extracts Allergy Unknown Verified 09/16/25 17:21 [facility] ED PFSH: Medical History Yeast UTI Hematuria due to acute cystitis Mild cognitive impairment with memory loss Bacteriuria Alzheimer disease 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 mellitus History of Doppler ultrasound 08/2021 venous no DVT BLE 08/2021 arterial patent vessels, left posterior tibial may be less than 60% stenosis, left dorsalis pedis not visualized Gait instability SARS-CoV-2 positive positive test 11/17/2021 symptoms weakness, hypoglycemia, altered mental status and low grade fever Anemia Intermittent self-catheterization of bladder due to urinary retention History of sleep study 02/22 limited sleep, no apnea noted but did have nocturnal hypoxemia, recommended to use nocturnal oxygen History of electromyography 01/23 Interpretation: The study provides electrodiagnostic evidence for an axonal sensorimotor polyneuropathy based on small or absent CMAPs and SNAPs with denervation seen distally on EMG. The study is limited for evaluation of lumbar radiculopathy related to the patient's anticoagulated state. History of echocardiogram 05/2021 EF 65% History of cardiovascular stress test 05/2021 normal EKG response, perfusion study without findings of ischemia Diabetes mellitus, type II Chronic anticoagulation Taken off Xarelto secondary to hematuria BPH loc w urin obs/LUTS Obstructive pyelonephritis 09/2021 required ureteral stent placement Left ureteral calculus Diabetic foot ulcer 08/2021 - treated with I&D, antibiotics and wound care clinic management Lumbar stenosis with neurogenic claudication 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 mellitus Cervicalgia of dukiyuaf-lijzhse-blrol region Lumbar stenosis L2/3, L3/4, L4/L5, with radiculopathy right lower extremity H/O prostate cancer Obstructive sleep apnea Refuses CPAP HTN (hypertension) Atrial fibrillation Surgical History Status post excisional debridement 08/2021 left foot History of laminectomy 03/25 bilateral with partial facetectomies at L2-3, L3-4, L4-[address] Smith Other postprocedural status history of radiofrequency ablation for back pain x 2 Status post laser lithotripsy of ureteral calculus (11/06/21) S/P ureteral stent placement (09/2021) subsequent removal H/O esophagogastroduodenoscopy (10/30/21) 10/2021 pedunculated polyps removed from first portion of duodenum, otherwise normal History of colonoscopy (10/30/21) 11/2021 diverticulosis of sigmoid colon and internal hemorrhoids, sessile polyps removed History of back surgery S/P tonsillectomy S/P appendectomy History of pilonidal cyst Family History Grandmother Heart disease Hypertension Grandfather Hypertension MATERNAL Diabetes Mother No problems noted. Father No problems noted. 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 Physical Exam Const: COMMON NORMALS: alert GENERAL APPEARANCE: cooperative, in distress (in pain) and frail appearing ORIENTATION/CONSCIOUSNESS: Yes awake, Yes oriented to person, Yes oriented to place and Yes oriented to time HENMT: COMMON NORMALS: normocephalic and Normal external nose present HEAD & SCALP: normocephalic FACE & SINUS: face symmetric NOSE: Normal external nose present Eye: COMMON NORMALS: Equal, round and reactive pupils present and EOMs intact bilaterally PUPIL: Yes Equal, round and reactive pupils present Neck/C-Spine: GENERAL: Yes trachea midline Chest: CHEST: Yes Symmetrical chest wall rise Resp: COMMON NORMALS: normal respiratory effort, No use of accessory muscles and clear to auscultation bilaterally AUSCULTATION: clear to auscultation bilaterally Cardio: COMMON NORMALS: regular rate and regular rhythm RATE: regular rate RHYTHM: regular rhythm GI: INSPECTION: Yes abdominal distension PALPATION: Yes Tenderness to palpation present (GI) (diffuse) Neuro: SENSORIUM/ORIENTATION: Yes alert, Yes oriented to person, Yes oriented to place and Yes oriented to time Procedures Rectal Disimpaction Time out performed rectal disimpaction: No Indication: fecal impaction Procedural Sedation: No Sedation/Analgesia: none Technique: manual disimpaction with gloved finger Result: significant stool output Patient Tolerated Procedure: well and no complications Complications: none Course Vital Signs: Vital signs: Vital Signs Temperature 98.2 F 09/16/25 17:17 Pulse Rate 96 09/16/25 22:51 Respiratory Rate 19 H 09/16/25 21:56 Blood Pressure 145/100 09/16/25 22:51 Pulse Oximetry 98 09/16/25 22:51 Oxygen Delivery Me thod Room Air 09/16/25 22:00 MDM - Abdominal Pain Medical Decision Making The patient has been hypertensive here. Other vitals are stable. He is afebrile. White blood cell count is 14. Hemoglobin 11. Platelet count 462. Creatinine is baseline at 1.4. Bicarb level is 19. He is given a 2 L sepsis bolus. His lactic acid was elevated initially, but came back down to normal. CT shows chronic mild hydronephrosis on the right with nephrostomy tubes in place on the right and left. He does have a sacral ulcer that is inspected on exam, and does not appear to be cellulitic. He has fecal impaction on CT with likely sterile coral colitis. He is given ciprofloxacin and Flagyl for this. He was disimpacted digitally with excellent results, and no bleeding. We will continue antibiotics for stercoral colitis. He will be given a bowel prep for the usp. Continue lactulose to prevent constipation. Return for any problems. He does have findings of urinary tract infection on urinalysis which is chronic for the patient given his indwelling nephrostomy tubes. At 1 point he had some right flank pain, but his nephrostomy tube was flushed, and started draining appropriately with improvement in his pain. He stable for discharge back to the usp. Return for any new or worsening symptoms. Lab Data 09/16/25 16:55 09/16/25 16:55 Labs/Radiology: Radiology Impressions Abdomen/Pelvis CT 09/16/25 18:16 IMPRESSION: 1. Mild hydronephrosis on the right with nephrostomy catheter in place. 2. Residual moderate right hydroureteronephrosis. 3. Cnya-qs-wjcuzkyg rectal distension with stool, with mild perirectal inflammatory changes, stercoral colitis not excluded. 4. Left nephrostomy tube with collecting system relatively decompressed. 5. Skin thickening and skin defect overlying the tip of the right aspect of the sacrum compatible with known sacral ulcer. Laboratory Results WBC 13.86 10^3/uL (3.29-11.43) H 09/16/25 16:55 RBC 4.13 10^6/uL (3.85-5.65) 09/16/25 16:55 Hgb 11.10 g/dL (11.27-16.99) L 09/16/25 16:55 Hct 34.8 % (37-53) L 09/16/25 16:55 MCV 84.3 fl (82-101) 09/16/25 16:55 MCH 26.9 pg (27-33) L 09/16/25 16:55 MCHC 31.9 g/dL (30-55) 09/16/25 16:55 RDW 15.9 % (12.1-15.1) H 09/16/25 16:55 Plt Count 462 10^3/cmm (157-399) H 09/16/25 16:55 MPV 10.0 fL (7.4-10.4) 09/16/25 16:55 Neut % (Auto) 73.1 % 09/16/25 16:55 Lymph % (Auto) 18.8 % 09/16/25 16:55 [place] % (Auto) 5.4 % 09/16/25 16:55 Eos % (Auto) 1.7 % 09/16/25 16:55 Baso % (Auto) 0.6 % 09/16/25 16:55 Neut # (Auto) 10.13 10^3/uL (1.8-7.7) H 09/16/25 16:55 Lymph # (Auto) 2.6 10^3/uL (0.8-4.8) 09/16/25 16:55 [place] # (Auto) 0.8 10^3/uL (0.2-0.9) 09/16/25 16:55 Eos # (Auto) 0.2 10^3/uL (0.0-0.8) 09/16/25 16:55 Baso # (Auto) 0.1 10^3/uL (0.0-0.1) 09/16/25 16:55 Nucleated RBC % (auto) 0 % 09/16/25 16:55 Nucleated RBCs # 0.0 /100WBC 09/16/25 16:55 Sodium 142 mmol/L (136-145) 09/16/25 16:55 Potassium 3.4 mmol/L (3.5-5.1) L 09/16/25 16:55 Chloride 103 mmol/L (98-107) 09/16/25 16:55 Carbon Dioxide 19 mmol/L (22-29) L 09/16/25 16:55 Anion Gap 23.4 (5-19) H 09/16/25 16:55 BUN 17 mg/dL (8-23) 09/16/25 16:55 Creatinine 1.4 mg/dL (0.7-1.2) H 09/16/25 16:55 GFR Calculation Not Reportable 09/16/25 16:55 Glucose 155 mg/dL (65-115) H 09/16/25 16:55 Calculated Osmolality 299 mOsm/kg (285-295) H 09/16/25 16:55 Lactic Acid 4.8 mmol/L (0.5-2.2) H* 09/16/25 16:55 Lactic Acid (Sepsis) 1.5 mmol/L (0.5-2.2) 09/16/25 19:58 Calcium 9.3 mg/dL (8.5-10.5) 09/16/25 16:55 Total Bilirubin 0.4 mg/dL (0.15-1.2) 09/16/25 16:55 AST 12 U/L (0-40) 09/16/25 16:55 ALT 7 U/L (0-41) 09/16/25 16:55 Alkaline Phosphatase 124 U/L (40-130) 09/16/25 16:55 C-Reactive Protein 57.8 mg/L (0.0-4.9) H 09/16/25 16:55 Total Protein 7.5 g/dL (6.6-8.7) 09/16/25 16:55 Albumin 3.8 g/dL (3.5-5.2) 09/16/25 16:55 Globulin 3.7 g/dL (1.3-4.6) 09/16/25 16:55 Urine Color Yellow (Yellow) 09/16/25 17:30 Urine Appearance Turbid (CLEAR) A 09/16/25 17:30 Urine pH 6.0 (5-7) 09/16/25 17:30 Ur Specific [place] 1.013 (1.005-1.030) 09/16/25 17:30 Urine Protein 1+ (Negative) A 09/16/25 17:30 Urine Glucose (UA) Negative (Normal) 09/16/25 17: Urine Ketones Negative (Negative) 09/16/25 17: Urine Blood 2+ (Negative) A 09/16/25 17:30 Urine Nitrate Negative (Negative) 09/16/25 17:30 Urine Bilirubin Negative (Negative) 09/16/25 17:30 Urine Urobilinogen 0.2 mg/dL (Negative) 09/16/25 17:30 Ur Leukocyte Esterase 3+ (Negative) A 09/16/25 17:30 Urine RBC 21-50 /hpf (0-2) H 09/16/25 17:30 Urine WBC >100 /hpf (0-5) H 09/16/25 17:30 Ur Squamous Epith Cells 0-5 /hpf (0-5) 09/16/25 17:30 Amorphous Sediment Not Reportable 09/16/25 17:30 Urine Bacteria Trace /hpf (NONE) 09/16/25 17:30 Hyaline Casts 1.65 /lpf 09/16/25 17:30 Urine Yeast 2+ /hpf H 09/16/25 17:30 All radiology interpretation(s) finalized by discharge Discharge Plan Discharge Patient Disposition: Home Clinical Impression: Fecal impaction in rectum, Stercoral colitis Condition: Stable Prescriptions: New metronidazole 500 mg tablet 500 mg PO BID 7 Days Qty: 14 0RF ciprofloxacin HCl 500 mg tablet 500 mg PO Q12H 7 Days Qty: 14 0RF magnesium citrate Solution 300 ml PO DAILY Qty: 296 0RF lactulose [Constulose] 10 gram/15 mL solution 30 g PO BID Qty: 3785 0RF No Action (DME) Dexcom G7 Sensor Device See Rx Instructions .Route Qty: 3 1RF Rx Instructions: As directed (DME) Dexcom G7 Band Attacher Misc See Rx Instructions .Route Qty: 1 0RF Rx Instructions: As directed (DME) FreeStyle Jimi 2 Crawford Misc See Rx Instructions .Route Qty: 1 0RF Rx Instructions: As directed ciprofloxacin HCl [Cipro] 500 mg tablet 500 mg PO .three times a week (DME) FreeStyle Jimi 2 Sensor Kit See Rx Instructions .ROUTE .MEDSUPPLY Qty: 6 1RF Rx Instructions: change every 14 days fluticasone propion-salmeterol [Wixela Inhub] 100-50 mcg/dose Blister With Device 1 inh INHALATION BID acetaminophen [Tylenol] 325 mg Tablet 650 mg PO Q6H PRN (Reason: Pain) furosemide 20 mg tablet 20 mg PO DAILY albuterol sulfate 90 mcg/actuation HFA aerosol inhaler 2 puff INHALATION Q4H PRN (Reason: Dyspnea) insulin glargine [Lantus Solostar U-100 Insulin] 100 unit/mL (3 mL) insulin pen 25 unit SUBCUT DAILY fentanyl 100 mcg/hr patch 72 hour 100 mcg transdermal .Q3D fosfomycin tromethamine 3 gram packet See Rx Instructions .ROUTE .COMPLEX Rx Instructions: 3 g orally on Thursday nystatin 100,000 unit/gram powder 1 applic TOPICAL TID simethicone 125 mg Capsule See Rx Instructions .ROUTE .COMPLEX PRN (Reason: Gas) Rx Instructions: Give 1-2 capsules by mouth four times daily after meals and at bedtime as needed for gas. No more than 4 in 24 hours. insulin lispro 100 unit/mL Insulin Pen 10 unit SUBCUT TIDWM polyethylene glycol 3350 [Miralax] 17 gram/dose Powder 17 g PO DAILY PRN (Reason: Constipation) cephalexin 500 mg capsule 500 mg PO TID 10 Days Qty: 30 0RF Lactobacillus acidophilus 25 million cell capsule 25 cell PO DAILY 30 Days Qty: 30 0RF ascorbic acid (vitamin C) [Vitamin C] 500 mg Tablet 1,000 mg PO DAILY methenamine hippurate 1 gram tablet 1 g PO BID MediHoney (honey) 80 % Gel 1 applic TOPICAL BID atorvastatin 80 mg tablet 80 mg PO DAILY hydrocodone-acetaminophen 7.5-325 mg tablet 1 tab PO BID PRN (Reason: Pain) digoxin 125 mcg (0.125 mg) tablet 125 mcg PO DAILY fluticasone propionate 50 mcg/actuation spray,suspension 1 spray INTRANASAL DAILY insulin lispro 100 unit/mL insulin pen See Rx Instructions .ROUTE .COMPLEX Rx Instructions: Injecr per sliding scale: bs<60, call MD. Bs 201-250=2 units, 251-300=4 units, 301-350=6 units, 351-400=8 units, bs greater than 400=8 units. Bs less than 60 or greater than 400x 3 consecutive times or symptomatic, call MD. metformin 500 mg tablet 500 mg PO DAILY ondansetron HCl 4 mg Tablet 4 mg PO TID PRN (Reason: Nausea And Vomiting) omeprazole 20 mg capsule,delayed release(DR/EC) 20 mg PO DAILY Discharge Orders: Discharge ED (Routine); Ordered 09/16/25 Ordered By: Joaquim Beard Referrals: Trisha Urena MD [Primary Care Provider, Family Practice] Patient Instructions: Abdominal Pain (ED), Fecal Impaction (ED), Colitis (ED), Opioid Safety, Pain Management, Patient Portal & Jamie Instructions Activity Restrictions/Additional Instructions: Medication as directed. Complete 7 days of the antibiotics. Continue lactulose after magnesium citrate. Print Language: Armenian Coding Level of Care Code ED Stave Cutting Supervisor for Say Muñoz
[2025-09-16 20:25] VITALS: BP 122/72; PULSE 76; RESP 18; O2SAT 100
[2025-09-16 21:30] VITALS: BP 107/86; PULSE 97; O2SAT 100
--- NOTE | 2025-09-16 21:48 | PC.NURSE ---
PT bilat neph drains are draining fluid and have been emptied and both are filled with approximately 200cc of urine since emptied.
[2025-09-16 21:56] VITALS: RESP 19; O2SAT 100
[2025-09-16 22:00] VITALS: BP 145/100; PULSE 99; O2SAT 96
[2025-09-16 22:51] VITALS: BP 145/100; PULSE 96; O2SAT 98
== END 2025-09-16 22:53 | disposition home or self-care (01) ==
PROVIDERS: Emergency Medicine; Emergency Provider Emergency Medicine; PCP Family Medicine
DX: K56.41 Fecal impaction (principal); K52.89 Other specified noninfective gastroenteritis and colitis; Z79.4 Long term (current) use of insulin; Z79.84 Long term (current) use of oral hypoglycemic drugs; E11.40 Type 2 diabetes mellitus with diabetic neuropathy, unspecified; I10 Essential (primary) hypertension; Z85.46 Personal history of malignant neoplasm of prostate
CPT/HCPCS: 36415; 74177; 80053; 81001; 83605; 85025; 86140; 87040; 87086; 87106; 96365; 96366; 96375; 96376; 99285; J2270; J2405; J2543; J7030; J9999

== ENCOUNTER 2025-09-21 10:01 | Inpatient (IN) | payer OTHER, SELFPAY ==
--- OUTSIDE RECORDS SUMMARY | 2025-03-22 04:00 | XMS_ITS ---
Author Organization [facility] Address [address] [place] [address] Care Team Providers Care Bending Press Operator Name Role Phone Vinnie Garcia DO Primary Care Provider John Andrews JR Unavailable [phone] Ila Fischer Unavailable [phone] REASON FOR VISIT 3m f/u w Christelle Encounters Encounter Location Date Provider Diagnosis [facility] [address] [place] [address] 03/22/2025 Ila Fischer Plan Of Treatment Next Appt Details Provider Name:Nury andrews, 10/19/2025 01:15:00 PM, [address], [address], [place], [address], Provider Name:Ila Godwin, 10/24/2025 01:00:00 PM, [address], [place], [address], History and Physical Notes * HPI (History of Present Illness) Category Sub-Category Detail Notes Category Not es Provider Note 74 year old male who presents to the clinic for follow up Last seen in December [address] Hendrix history of prostate cancer, contracted bladder resulting in bilateral hydronephrosis He had bilateral percutaneous nephrostomy tubes. His right ureteral stent was removed June 13, 2024. He was referred to [facility]. He was told he was not medically viable for further procedures. The last time his percutaneous nephrostomy tubes were changed was June 02, 2024. He was concerned about drainage from left percutaneous nephrostomy tube site. At last appt. with Dr. Ruma, His daughter stated he has a bowel infection, kidney infection and vertebral bone osteomyelitis. The left PCN tube site was free from infection last visit. Dressings were to be kept clean Bilateral PCNT were draining urine Dr. Hendrix ordered for him to have bilateral percutaneous nephrostomy tube exchange with interventional radiology at [facility]. He was to have CBC, CMP, PSA Urine cultured from each tube Follow up with me. Patient was placed in the hospital after he presented to the ER with symptoms he spoke to Dr. Man and Dr. Hendrix about. He was found to have discitis, abdominal pain, possible ureteral malignancy, UTI, CT in 3 months - should have one now, New perc tubes now. Its been 3 months. On March 11 patient was sent to due to right nephrostomy tube not draining and patient being in excruciating pain. He was to have exchange on the . Did not appear nephrostomy tube was dislodged, but it was clear patient had hydronephrosis and hydroureter with discitis forming again. Dr. Warner replaced tube again. Dr. Warner suggested bilateral tubes be changed in two months instead of 3 due to debris found in tube. CT was completed while in hospital and will be added to visit. Progress Notes * Raphael DEAL DDOB:1949 (75 yo M)Acc No.[id number]:03/22/2025 Progress Notes Patient: Raphael Meyer Provider: WALT Rod :1950 A ge:75 Y S ex:Male Date:03/22/2025 Address:[address], [place] [id number] Pcp:Vinnie Garcia, Subjective: * Chief Complaints: * 3 m f/u w Christelle * HPI: Sierra santos Note: 74 year old male who presents to the clinic for follow up Last seen in December [address] 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 He was referred to [facility]. He was told he was not medically viable for further procedures. The last time his percutaneous nephrostomy tubes were changed was June 02, 2024. He was concerned about drainage from left percutaneous nephrostomy tube site. At last appt. with Dr. Hendrix, His daughter stated he has a bowel infection, k idney infection and vertebral bone osteomyelitis. The left PCN tube site was free from infection last visit. Dressings were to be kept clean Bilateral PCNT were draining urine Dr. Hendrix ordered for him to have bilateral percutaneous nephrostomy tube exchange with interventional radiology at [facility]. He was to have CBC, CMP, PSA Urine cultured from each tube Follow up with me. Patient was placed in the hospital after he presented to the ER with symptoms he spoke to Dr. Man and Dr. Hendrix about. He was found to have discitis, abdominal pain, possible ureteral malignancy, UTI, CT in 3 months -should have one now, New perc tubes now. Its been 3 months. On March 11 patient was sent to due to right nephrostomy tube not draining and patient being in excruciating pain. He was to have exchange on the . Did not appear nephrostomy tube was dislodged, but it was clear patient had hydronephrosis and hydroureter with discitis forming again. Dr. Warner replaced tube again. Dr. Warner suggested bilateral tubes be changed in two months instead of 3 due to debris found in tube. CT was completed while in hospital and will be added to visit. Billing Information: * Procedure Codes: * Electronic signature of WALT Wall on 09/21/2025 at 11:27 AM DIE SINKING MACHINE OPERATOR Sign off status: Pending * Provider: WALT Rod Date: 0 03/22/2025 Generated for Nai irwin/Cyndie/Yann on: 1 11/22/2024 11:27 AM DIE SINKING MACHINE OPERATOR
--- OUTSIDE RECORDS SUMMARY | 2025-06-28 08:10 | XMS_ITS ---
Author Organization [facility] Address [address] [place] [address] Care Team Providers Care Hostage Negotiator Name Role Phone Vinnie Garcia DO Primary Care Provider John Andrews JR Unavailable [phone] Ila Fischer Unavailable REASON FOR VISIT 3m f/u w CT abd,/pelv w/o, cbc, cmp. Encounters Encounter Location Date Provider Diagnosis [facility] [address] [place] [address] [address] [place] [address] 06/28/2025 Ila Fischer Plan Of Treatment Next Appt Details Provider Name:Nury andrews, 10/19/2025 01:15:00 PM, [address] [facility], [facility], [place], [address], Provider Name:Ila Godwin, 10/24/2025 01:00:00 PM, [address] [place] [address] Dr, [place] [address], [place], [address], Progress Notes * Raphael DEAL DDOB:1949 (75 yo M)Acc No.[id number]:06/28/2025 Progress Notes Patient: Raphael Meyer Provider: WALT Rod :1950 A ge:75 Y S ex:Male Date:06/28/2025 Address:[address], [id number] Pcp:Vinnie Garcia DO Subjective: * Chief Complaints: * 3 m f/u w CT abd,/pelv w/o, cbc, cmp. Billing Information: * Procedure Codes: * Electronic signature of WALT Wall on 09/21/2025 at 11:27 AM PROJ MGR Sign off status: Pending * Provider: WALT Rod Date: 0 06/28/2025 Generated for Nai irwin/Cyndie/Yann on: 1 11/22/2024 11:27 AM PROJ MGR
--- OUTSIDE RECORDS SUMMARY | 2025-09-14 08:00 | XMS_ITS ---
Author Organization 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 Name Role Phone Vinnie Garcia DO Primary Care Provider John Andrews JR Unavailable [phone] Nury Flores Unavailable [phone] Allergies Allergen (clinical drug ingredient) Drug/Non Drug Allergy documented on EMR Reaction Allergy Type Onset Date Status atorvastatin Lipitor Unknown Drug Allergy Acti ve pravastatin Pravachol Unknown Drug Allergy Activ e gemfibrozil Gemfibrozil Unknown Drug Allergy Act arsenio pravastatin Pravastatin Unknown Drug Allergy Act arsenio Results Component Value Reference Range Flag Notes CBC w\ Auto Diff [id number] Reviewed date:09/15/2025 12:52:00 PM Interpretation: Performing Lab: [...] HI Lymph Auto% 17.1 22.0-44.0 % LOW [place] Auto% 5.6 3.0-7.0 % Eos Auto% 2.1 2.0-4.0 % Baso Auto% 0.7 0.0-1.0 % Imm Gran% .6 .0-.4 % HI Neutro Abs 9.79 .80-7.70 HI Absolute Neutrophil Count 9790 NA Lymph Abs 2.27 .10-4.10 [place] Abs .74 .20-1.00 Eos Abs .28 .00-.40 Baso Abs .09 .00-.20 Imm Gran Abs .08 .00-.10 NRBC# .00 .00-.20 NRBC% .00 .00-.20 /100 int act WBC's Comprehensive Metabolic Pane l (CMP) 31450 Reviewed date:09/15/2025 12:52:00 PM Interpretation: Performing Lab: Notes/Report: Diagnosis Description: Type 2 diabetes mellitus with diabetic chronic kidney disease Glucose Serum 276 71-110 MG/DL HI Testing p erformed at [facility], [address] [place] [address] [place] [address]. CLIA ID#: [id number] BUN 19 7-21 MG/DL Creat 1.19 .57-1.17 MG/DL HI P-lkjlyb-w-benzoquinone imine (NAPQI) is a metabolite of acetaminophen, [...] UNIT/L Osmo Serum,Calculated 304 280-300 MOSM/KG HI CRP [id number] Reviewed date:09/15/2025 12:52:01 PM Interpretation: Performing Lab: Notes/Report: Diagnosis Description: Type 2 diabetes mellitus with diabetic chronic kidney disease CRP 3.38 .40-1.00 MG/DL DC REASON FOR VISIT [id number] 4 week - UTI Medications Medication SIG (Take, Route, Frequency, Duration) Notes Start Date End Date Status Galantamine Hydrobromide 4 MG Tablet 1 tablet with meals Orally Twice a day Not-Taking Linezolid Not-Taking insulin aspart, human 100 UNT/ML Injectable Solution [NovoLog] *Reorder from [employer] for eRx and Interaction Alerts* 09/25/2023 Not-Taking Melatonin 1 MG/4ML Liquid 4 mL at bedtime as needed Orally Once a day Not-Taking Losartan Potassium 50 MG Oral Tablet ORAL *Reorder from [employer] for eRx and Interaction Alerts* 07/23/2023 Not-Taking [...] MG/ACTUAT Dry Powder Inhaler INTRAPULMONARY *Reorder from [employer] for eRx and Interaction Alerts* 07/23/2023 Not-Taking Cranberry 250 MG Tablet as directed Orally Not-Takin g Colace 100 MG Capsule 1 capsule as needed Orally Once a day Not-Taking Dulcolax 10 MG Suppository 1 suppository as needed Rectal Once a day Not-Taking Diltiazem Hydrochloride 60 MG Oral Tablet ORAL *Reorder from [employer] for eRx and Interaction Alerts* 07/23/2023 Not-Taking Finasteride 5 MG Tablet Oral 07/23/2023 Not-Taking Coenzyme Q10 10 MG Capsule as directed Orally Not-Takin g cholecalciferol 1.25 MG Oral Tablet ORAL *Reorder from [employer] for eRx and Interaction Alerts* 07/23/2023 Not-Taking Amiodarone HCl 200 MG Tablet 1 tablet Orally Once a day Not-Taking Carvedilol 6.25 MG Tablet 1 tablet with food Orally Twice a day Not-Taking bisacodyl 10 MG Rectal Suppository [Dulcolax] RECTAL *Reorder from [employer] for eRx and Interaction Alerts* 07/23/2023 Not-Taking [...] HCl 500 MG Tablet Oral 07/23/2023 Active [facility] Wound/Burn Dressing - Gel as directed Externally [...] 20 MG Oral Tablet ORAL *Reorder from [employer] for eRx and Interaction Alerts* 07/23/2023 Active [...] B12 1 MG Sublingual Tablet *Reorder from [employer] for eRx and Interaction Alerts* 07/23/2023 Not-Taking Acetaminophen 325 MG Tablet 1 tablet as needed Orally every 6 hrs Active Albuterol Sulfate 108 (90 Base) MCG/ACT Aerosol Powder Breath Activated 1 puff as needed Inhalation every 4 hrs Active Acidophilus Active Ascorbic Acid 500 MG Tablet Chewable 1 tablet Orally Once a day Active ubidecarenone 30 MG Oral Capsule ORAL *Reorder from [employer] for eRx and Interaction Alerts* 07/23/2023 Not-Taking [...] 40 MG Oral Tablet ORAL *Reorder from [employer] for eRx and Interaction Alerts* 07/23/2023 Not-Taking rivaroxaban 20 MG Oral Tablet [Xarelto] ORAL *Reorder from [employer] for eRx and Interaction Alerts* 07/23/2023 Not-Taking NovoLOG 100 UNIT/ML Solution as directed Injection Not-Taking mometasone furoate 0.05 MG/ACTUAT Metered Dose Nasal [place] *Reorder from [employer] for eRx and Interaction Alerts* 07/23/2023 Not-Taking Metoprolol Tartrate 50 MG Tablet 1 tablet with food Orally Twice a day Not-Taking Mometasone Furoate 50 MCG/ACT Suspension 4 sprays (2 sprays in each nostril) Nasally Once a day Not-Taking MiraLax 17 GM/SCOOP Powder 1 scoop mixed with 8 ounces of fluid Orally Once a day Not-Taking Melatonin 1 MG Oral Tablet ORAL *Reorder from [employer] for eRx and Interaction Alerts* 07/23/2023 Not-Taking Methocarbamol 750 MG Oral Tablet ORAL *Reorder from [employer] for eRx and Interaction Alerts* 07/23/2023 Not-Taking [...] 09/14/2025 Encounters Encounter Location Date Provider Diagnosis [facility] [address] [place] [id number] 09/14/2025 Nury Kebedepool Nephrostomy status Z93.6 ; [...] pneumonia, UM WBC 286 08-08-25 W 14.0 MANAGER UNDERWRITING 1.12 08-09-25 W 12.7 MANAGER UNDERWRITING 1.08 08-10-25 W 11.7 MANAGER UNDERWRITING 1.13 09-14-25; Check CBC, CMP, CRP in office [facility] for continued care of chronic kidney [...] pneumonia, UM WBC 286 08-08-25 W 14.0 MANAGER UNDERWRITING 1.12 08-09-25 W 12.7 MANAGER UNDERWRITING 1.08 08-10-25 W 11.7 MANAGER UNDERWRITING 1.13 09-14-25; Check CBC, CMP, CRP in office [facility] for continued care of chronic kidney [...] pneumonia, UM WBC 286 08-08-25 W 14.0 MANAGER UNDERWRITING 1.12 08-09-25 W 12.7 MANAGER UNDERWRITING 1.08 08-10-25 W 11.7 MANAGER UNDERWRITING 1.13 09-14-25; Check CBC, CMP, CRP in office [facility] for continued care of chronic kidney [...] pneumonia, UM WBC 286 08-08-25 W 14.0 MANAGER UNDERWRITING 1.12 08-09-25 W 12.7 MANAGER UNDERWRITING 1.08 08-10-25 W 11.7 MANAGER UNDERWRITING 1.13 09-14-25; Check CBC, CMP, CRP in office [facility] for continued care of chronic kidney [...] pneumonia, UM WBC 286 08-08-25 W 14.0 MANAGER UNDERWRITING 1.12 08-09-25 W 12.7 MANAGER UNDERWRITING 1.08 08-10-25 W 11.7 MANAGER UNDERWRITING 1.13 09-14-25; Check CBC, CMP, CRP in office [facility] for continued care of chronic kidney [...] pneumonia, UM WBC 286 08-08-25 W 14.0 MANAGER UNDERWRITING 1.12 08-09-25 W 12.7 MANAGER UNDERWRITING 1.08 08-10-25 W 11.7 MANAGER UNDERWRITING 1.13 09-14-25; Check CBC, CMP, CRP in office [facility] for continued care of chronic kidney disease Follow up; in 4 weeks Plan Of Treatment Treatment Notes Assessment Notes Other Hospital records rev iewed, medication list reviewed and reconciled Pending Test Test Name Order Date MRI Pelvis w/ + w/o [id number] Next Appt Details Follow Up: 4 Weeks, Reason: pressure wound/UTI f/u Provider Name:Nury andrews, 10/19/2025 01:15:00 PM, [address] [place] [address] Drive, [place], [address], Provider Name:Ila Godwin, 10/24/2025 01:00:00 PM, [address] , [address], [place], [address], History and Physical Notes * Examination Category [...] * Raphael DEAL DDOB:1949 (75 yo M)Acc No.[id number]:09/14/2025 Progress Notes Patient: Felisa Raphael petit Provider: Ly Flores APRN :1950 A ge:75 Y S ex:Male Date:09/14/2025 Address:[facility] [address], [place], [id number] Pcp:Vinnie Garcia DO Check Out:03:07 PM CANADIAN BACON TIER Subjective: * Chief Complaints: * 6 [id number] 4 week - UTI * HPI: [place] [...] seen, and scheduled to be seen at [facility]. for ileal conduit and urinary diversion. [...] for lumbar discitis. His MRI here at [facility] was negative for active discitis. He was having severe flank pain, Concern for UTI/pyelonephritis possibly from Marci. He was treated with antifungals and Nephrostomy tubes were exchanged. Discharged back to nursing facility in [place]. He is asymptomatic today. Daughter is present with patient. 07-17-25;finished antibiotics, but no further antibiotics 08-15-25; HFU - Patient was readmitted on 08-07-25 with metabolic encephalopathy from Referred to [facility] from [place]. He was found to have a Klebsiella UTI, he had his nephrostomy tubes exchanged during his hospital stay. He was given Cipro p.o. He is asymptomatic today. Clear yellow urine draining in nephrostomy bags. Daughter is present with patient she would like a referral to see Dr. Nova for Nephrology evmd. 09-14-25; He will see a [employer] from [facility] they will go to his facility. He [...] ORAL , Notes to Pharmacist: *Reorder from [employer] for eRx and Interaction Alerts*HYDROcodone-Acetaminophen 7.5-325 MG [...] Lantus 100 UNIT/ML Solution as directed Subcutaneous [facility] Wound/Burn Dressing - Gel as directed Externally [...] ORAL , Notes to Pharmacist: *[facility] for eRx and Interaction Alerts*Taking HYDROcodone-Acetaminophen 7.5-325 [...] 100 UNIT/ML Solution as directed Subcutaneous Taking [facility] Wound/Burn Dressing - Gel as directed Externally [...] Notes to Pharmacist: *Reorder from [facility] for eRx and Interaction Alerts*Carvedilol 6.25 MG Tablet 1 tablet with food Orally Twice a day cholecalciferol 1.25 MG Oral Tablet ORAL , Notes to Pharmacist: *Reorder from [facility] for eRx and Interaction Alerts*Coenzyme Q10 10 MG Capsule as directed Orally Colace 100 MG Capsule 1 capsule as needed Orally Once a day Cranberry 250 MG Tablet as directed Orally Diltiazem Hydrochloride 60 MG Oral Tablet ORAL , Notes to Pharmacist: *Reorder from [facility] for eRx and Interaction Alerts*Dulcolax 10 MG Suppository 1 suppository as needed Rectal Once a day Finasteride 5 MG Tablet Oral Fish Oil 1000 MG Capsule 1 capsule Orally Three times a day Fluconazole 200 MG Tablet 1 tablet Orally fluticasone propionate 0.1 MG/ACTUAT / salmeterol 0.05 MG/ACTUAT Dry Powder Inhaler INTRAPULMONARY , Notes to Pharmacist: *Reorder from [facility] for eRx and Interaction Alerts*Fosfomycin Tromethamine 3 GM Packet as directed Orally Gabapentin 400 MG Capsule 1 capsule Orally Once a day Galantamine Hydrobromide 4 MG Tablet 1 tablet with meals Orally Twice a day insulin aspart, human 100 UNT/ML Injectable Solution [NovoLog] , stop date 11/03/2027, Notes to Pharmacist: *Reorder from [facility] for eRx and Interaction Alerts*Linezolid Losartan Potassium 50 MG Oral Tablet ORAL , Notes to Pharmacist: *Reorder from [facility] for eRx and Interaction Alerts*Melatonin 1 MG/4ML Liquid 4 mL at bedtime as needed Orally Once a day Melatonin 1 MG Oral Tablet ORAL , Notes to Pharmacist: *Reorder from [facility] for eRx and Interaction Alerts*Methocarbamol 750 MG Oral Tablet ORAL , Notes to Pharmacist: *Reorder from [facility] for eRx and Interaction Alerts*Metoprolol Tartrate 50 MG Tablet 1 tablet with food Orally Twice a day MiraLax 17 GM/SCOOP Powder 1 scoop mixed with 8 ounces of fluid Orally Once a day Mometasone Furoate 50 MCG/ACT Suspension 4 sprays (2 sprays in each nostril) Nasally Once a day mometasone furoate 0.05 MG/ACTUAT Metered Dose Nasal [place] , Notes to Pharmacist: *Reorder from [facility] for eRx and Interaction Alerts*NovoLOG 100 UNIT/ML Solution as directed Injection oxyCODONE HCl , Notes to Pharmacist: 5 mgPantoprazole Sodium 40 MG Tablet Delayed Release 1 tablet Orally BID Potassium Chloride ER 10 MEQ Tablet Extended Release 1 tablet with food Orally once daily rivaroxaban 20 MG Oral Tablet [Xarelto] ORAL , Notes to Pharmacist: *Reorder from [facility] for eRx and Interaction Alerts*Rosuvastatin Calcium 40 MG Oral Tablet ORAL , Notes to Pharmacist: *Reorder from [facility] for eRx and Interaction Alerts*Tamsulosin HCl 0.4 MG Capsule 1 capsule Orally Once a day Tamsulosin HCl 0.4 MG Capsule Oral traMADol HCl 50 MG Tablet 1 tablet as needed Orally every 6 hours Tylenol 325 MG Tablet 1 tablet as needed Orally every 6 hrs ubidecarenone 30 MG Oral Capsule ORAL , Notes to Pharmacist: *Reorder from [facility] for eRx and Interaction Alerts*vitamin B12 1 MG Sublingual Tablet , Notes to Pharmacist: *Reorder from [facility] for eRx and Interaction Alerts*Medication List reviewed and reconciled with the patientNot-Taking Amiodarone HCl 200 MG Tablet 1 tablet Orally Once a day Not-Taking bisacodyl 10 MG Rectal Suppository [Dulcolax] RECTAL , Notes to Pharmacist: *Reorder from [facility] for eRx and Interaction Alerts*Not-Taking Carvedilol 6.25 MG Tablet 1 tablet with food Orally Twice a day Not-Taking cholecalciferol 1.25 MG Oral Tablet ORAL , Notes to Pharmacist: *Reorder from [facility] for eRx and Interaction Alerts*Not-Taking Coenzyme Q10 10 MG Capsule as directed Orally Not-Taking Colace 100 MG Capsule 1 capsule as needed Orally Once a day Not-Taking Cranberry 250 MG Tablet as directed Orally Not-Taking Diltiazem Hydrochloride 60 MG Oral Tablet ORAL , Notes to Pharmacist: *Reorder from [facility] for eRx and Interaction Alerts*Not-Taking Dulcolax 10 [...] Notes to Pharmacist: *Reorder from [facility] for eRx and Interaction Alerts*Not-Taking Fosfomycin Tromethamine 3 GM Packet as directed Orally Not-Taking Gabapentin 400 MG Capsule 1 capsule Orally Once a day Not-Taking Galantamine Hydrobromide 4 MG Tablet 1 tablet with meals Orally Twice a day Not-Taking insulin aspart, human 100 UNT/ML Injectable Solution [NovoLog] , stop date 11/03/2027, Notes to Pharmacist: *Reorder from [facility] for eRx and Interaction Alerts*Not-Taking Linezolid Not-Taking Losartan Potassium 50 MG Oral Tablet ORAL , Notes to Pharmacist: *Reorder from [facility] for eRx and Interaction Alerts*Not-Taking Melatonin 1 MG/4ML Liquid 4 mL at bedtime as needed Orally Once a day Not-Taking Melatonin 1 MG Oral Tablet ORAL , Notes to Pharmacist: *Reorder from [facility] for eRx and Interaction Alerts*Not-Taking Methocarbamol 750 MG Oral Tablet ORAL , Notes to Pharmacist: *Reorder from [facility] for eRx and Interaction Alerts*Not-Taking Metoprolol Tartrate 50 MG Tablet 1 tablet with food Orally Twice a day Not-Taking MiraLax 17 GM/SCOOP Powder 1 scoop mixed with 8 ounces of fluid Orally Once a day Not-Taking Mometasone Furoate 50 MCG/ACT Suspension 4 sprays (2 sprays in each nostril) Nasally Once a day Not-Taking mometasone furoate 0.05 MG/ACTUAT Metered Dose Nasal [place] , Notes to Pharmacist: *Reorder from [facility] for eRx and Interaction Alerts*Not-Taking NovoLOG 100 [...] Notes to Pharmacist: *Reorder from [facility] for eRx and Interaction Alerts*Not-Taking Rosuvastatin Calcium 40 MG Oral Tablet ORAL , Notes to Pharmacist: *Reorder from [facility] for eRx and Interaction Alerts*Not- Taking Tamsulosin [...] ORAL , Notes to Pharmacist: *[facility] and Interaction Alerts*Not-Taking vitamin B12 1 MG Sublingual Tablet , Notes to Pharmacist: *[facility] and Interaction Alerts*Medication List [...] pneumonia, UM WBC 286 08-08-25 W 14.0 MANAGER UNDERWRITING 1.12 08-09-25 W 12.7 MANAGER UNDERWRITING 1.08 08-10-25 W 11.7 MANAGER UNDERWRITING 1.13 09-14-25; Check CBC, CMP, CRP in office [facility] for continued care of chronic kidney disease Follow up; in 4 weeks Plan: * Treatment: 2. T ype 2 diabetes mellitus with diabetic chronic kidney disease L AB: CBC w\ Auto Diff 05748 L AB: Comprehensive Metabolic Panel (CMP) 54048 L AB: CRP 66486 3. O thers Notes: Hospital records reviewed, medication list reviewed and reconciled * Procedure Codes: 3 078F DIAST BP < 80 MM [id number] SYST BP LT 130 MM HG * Follow Up: 4 Weeks (Reason: pressure wound/UTI f/u) * Billing Information: * Visit Code: 64916 Office Visit, Est Pt., Level 4. * Procedure Codes: 3078F DIAST BP < 80 MM HG. 3074F SYST BP LT 130 MM HG. Care Plan Details* Images * [id number] * DIAN BACON TIER Sign off status: Completed true * Provider: Ly Flores APRN Date: 11/15/2024 Generated for Nai irwin/Cyndie/Abdonitting on: 11/22/2024 11:26 AM CANADIAN BACON TIER
[2025-09-21] VITALS (19 sets, daily range): BP systolic 113–157; BP diastolic 68–97; PULSE 64–119; RESP 15–26; TEMP 36.9–37; O2SAT 88–100; BMI 26.8
--- NOTE | 2025-09-21 10:08 | CT_ITS ---
WS: [id number] CT ABDOMEN PELVIS TECHNIQUE: Noncontrast CT of the abdomen and pelvis with coronal and sagittal reformatted images. CLINICAL INFORMATION: flank pain, malfunctioning nephrostomy tube COMPARISON: CT 09/16/2025 DLP: 667.[address] scans at [facility] use at least one of these dose optimization techniques: automated exposure control; mA and/or kV adjustment per patient size (includes targeted exams where dose is matched to clinical indication); or iterative reconstruction. FINDINGS: Small hazy opacity LEFT lower lobe likely inflammatory. Small to moderate pericardial effusion. Small esophageal hiatal hernia. Cholelithiasis. Bilateral nephrostomy tubes. Residual moderate RIGHT hydro nephrosis with ureterectasis. Inflammatory stranding and edema in the RIGHT renal pelvis. RIGHT renal pelvis distention is improved compared to previous. Recommend correlation for drainage. LEFT nephrostomy tube appears in good position with only mild distention of the LEFT renal pelvis Moderate pancolonic constipation. Sigmoid diverticulosis. 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 Chronic erosive changes at the L3-4 level similar to the prior studies. Improved rectal distention today. Mild diffuse body wall anasarca. Sacral decubitus ulcer with a small amount of air and fluid similar to prior studies CT/CT kidney stone [id number] IMPRESSION: 1. Bilateral nephrostomy tubes with moderate residual RIGHT hydronephrosis alt abrahan improved compared to 09/16/2025. Persistent inflammatory stranding and ed max in the RIGHT renal pelvis. 2. LEFT renal collecting system is decompressed. 3. Cholelithiasis. 4. Improved rectal distention 5. Sacral decubitus ulcer with a small amount of air and fluid similar to prio r studies 6. No other significant changes
[2025-09-21 10:35] LABS: Hematocrit 31.7 % (37-53); Hemoglobin 10.10 g/dL (11.27-16.99); Mean Corpuscular HGB Conc 31.9 g/dL (30-55); Mean Corpuscular Hemoglobin 27.4 pg (27-33); Mean Corpuscular Volume 85.9 fl (82-101); Nucleated Red Blood Cells % 0 %; Platelet Count 401 10^3/cmm (157-399); Red Blood Count 3.69 10^6/uL (3.85-5.65); White Blood Count 13.42 10^3/uL (3.29-11.43)
--- NOTE | 2025-09-21 10:38 | W.ED.ABDPA2 ---
HPI - Abdominal Pain General: Chief Complaint: Abdominal Pain Stated Complaint: ABD PAIN Time Seen by Provider: 09/21/25 10:02 History of Present Illness: 75yo male presents emergency room with complaint of abdominal pain via ambulance from local senior care. Patient has bilateral nephrostomy tubes that were placed at outside facilities that are usually managed by urology in [place]. Patient is complaining of bilateral flank pain reports low-grade fever subjectively at the senior care. He has been nauseous. Associated Symptoms: Denies chills and fever(s) Related Data Home Medications ?Medication ?Instructions ?Recorded ?Confirmed fluticasone 100 mcg-salmeterol 50 1 inh inhalation BID 10/03/21 09/21/25 mcg/dose blistr powdr for inhalation (Wixela Inhub) acetaminophen 325 mg tablet 650 mg PO Q6H PRN Pain 07/02/23 09/21/25 (Tylenol) albuterol sulfate 90 mcg/actuation 2 puff inhalation Q4H PRN Dyspnea 04/27/24 09/21/25 aerosol inhaler furosemide 20 mg tablet 20 mg PO DAILY 04/27/24 09/21/25 atorvastatin 80 mg tablet 80 mg PO DAILY 11/26/24 09/21/25 digoxin 125 mcg (0.125 mg) tablet 125 mcg PO DAILY 11/26/24 09/21/25 fluticasone propionate 50 1 spray intranasal DAILY 11/26/24 09/21/25 mcg/actuation nasal spray,suspension hydrocodone 7.5 mg-acetaminophen 1 tab PO BID PRN Pain 11/26/24 09/21/25 325 mg tablet insulin lispro 100 unit/mL See Rx Instructions .Route .COMPLEX 11/26/24 09/21/25 subcutaneous pen omeprazole 20 mg capsule,delayed 20 mg PO DAILY 11/26/24 09/21/25 release ondansetron HCl 4 mg tablet 4 mg PO TID PRN Nausea And Vomiting 11/26/24 09/21/25 fentanyl 100 mcg/hr transdermal 100 mcg transdermal .Q3D 06/06/25 09/21/25 patch insulin glargine 100 unit/mL (3 25 unit SUBCUT DAILY 06/06/25 09/21/25 mL) subcutaneous pen (Lantus Solostar U-100 Insulin) insulin lispro 100 unit/mL 10 unit SUBCUT TIDWM 06/06/25 09/21/25 subcutaneous pen nystatin 100,000 unit/gram topical 1 applic topical TID 06/06/25 09/21/25 powder polyethylene glycol 3350 17 17 g PO DAILY PRN Constipation 06/06/25 09/21/25 gram/dose oral powder (Miralax) simethicone 125 mg capsule See Rx Instructions .Route 06/06/25 09/21/25 .COMPLEX PRN Gas ciprofloxacin HCl 500 mg tablet 500 mg PO .three times a week 08/30/25 09/21/25 (Cipro) ascorbic acid (vitamin C) 500 mg 1,000 mg PO DAILY 09/08/25 09/21/25 tablet (Vitamin C) honey 80 % topical gel (MediHoney 1 applic topical BID 09/08/25 09/21/25 (honey)) methenamine hippurate 1 gram tablet 1 g PO BID 09/08/25 09/21/25 ciprofloxacin HCl 500 mg tablet 500 mg PO Q12H through 09/23/25 09/21/25 09/21/25 Previous Rx's ?Medication ?Instructions ?Recorded flash glucose scanning reader #1 ea 08/25/23 (FreeStyle Jimi 2 [place]) FreeStyle Jimi 2 Sensor (flash #6 ea 12/11/23 glucose sensor) blood-glucose sensor (Dexcom G7 #3 ea 02/08/24 Sensor device) blood-glucose,academic support coordinator,cont #1 ea 02/08/24 (Dexcom G7 Laboratory Animal Care Veterinarian) Lactobacillus acidophilus 25 25 cell (0 x 25 million cell) PO 09/08/25 million cell capsule DAILY 30 days #30 caps lactulose 10 gram/15 mL oral 30 g (45 mL) PO BID #3,785 mL 09/16/25 solution (Constulose) magnesium citrate 300 ml PO DAILY #296 mL 09/16/25 metronidazole 500 mg tablet 500 mg PO BID 7 days #14 tabs 09/16/25 Allergies Allergy/AdvReac Type Severity Reaction Status Date / Time pollen extracts Allergy Unknown Verified 09/16/25 17:21 Review of Systems Const: Denies: fever(s) or chills Card: Denies: chest pain Resp: Denies: dyspnea GI: Reports: abdominal pain : Reports: flank pain Musc: Denies: neck pain or back pain Skin/Breast: Denies: rash PFSH ED PFSH: Medical History Yeast UTI Hematuria due to acute cystitis Mild cognitive impairment with memory loss Bacteriuria Alzheimer disease 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 mellitus History of Doppler ultrasound 08/2021 venous no DVT BLE 08/2021 arterial patent vessels, left posterior tibial may be less than 60% stenosis, left dorsalis pedis not visualized Gait instability SARS-CoV-2 positive positive test 11/17/2021 symptoms weakness, hypoglycemia, altered mental status and low grade fever Anemia Intermittent self-catheterization of bladder due to urinary retention History of sleep study 02/22 limited sleep, no apnea noted but did have nocturnal hypoxemia, recommended to use nocturnal oxygen History of electromyography 01/23 Interpretation: The study provides electrodiagnostic evidence for an axonal sensorimotor polyneuropathy based on small or absent CMAPs and SNAPs with denervation seen distally on EMG. The study is limited for evaluation of lumbar radiculopathy related to the patient's anticoagulated state. History of echocardiogram 05/2021 EF 65% History of cardiovascular stress test 05/2021 normal EKG response, perfusion study without findings of ischemia Diabetes mellitus, type II Chronic anticoagulation Taken off Xarelto secondary to hematuria BPH loc w urin obs/LUTS Obstructive pyelonephritis 09/2021 required ureteral stent placement Left ureteral calculus Diabetic foot ulcer 08/2021 - treated with I&D, antibiotics and wound care clinic management Lumbar stenosis with neurogenic claudication 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 mellitus Cervicalgia of kghljwex-ymlgzhk-ngstb region Lumbar stenosis L2/3, L3/4, L4/L5, with radiculopathy right lower extremity H/O prostate cancer Obstructive sleep apnea Refuses CPAP HTN (hypertension) Atrial fibrillation Surgical History Status post excisional debridement 08/2021 left foot History of laminectomy 03/25 bilateral with partial facetectomies at L2-3, L3-4, L4-[address] Smith Other postprocedural status history of radiofrequency ablation for back pain x 2 Status post laser lithotripsy of ureteral calculus (11/06/21) S/P ureteral stent placement (09/2021) subsequent removal H/O esophagogastroduodenoscopy (10/30/21) 10/2021 pedunculated polyps removed from first portion of duodenum, otherwise normal History of colonoscopy (10/30/21) 11/2021 diverticulosis of sigmoid colon and internal hemorrhoids, sessile polyps removed History of back surgery S/P tonsillectomy S/P appendectomy History of pilonidal cyst Family History Grandmother Heart disease Hypertension Grandfather Hypertension MATERNAL Diabetes Mother No problems noted. Father No problems noted. 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 Physical Exam Const: GENERAL APPEARANCE: cooperative ORIENTATION/CONSCIOUSNESS: Yes awake, Yes oriented to person, Yes oriented to place and Yes oriented to time HENMT: COMMON NORMALS: normocephalic, atraumatic and hearing grossly normal bilaterally HEAD & SCALP: normocephalic and atraumatic Resp: COMMON NORMALS: normal respiratory effort, No retractions, No use of accessory muscles and clear to auscultation bilaterally AUSCULTATION: clear to auscultation bilaterally Cardio: COMMON NORMALS: regular rate, regular rhythm and No murmurs present (Cardio) RATE: regular rate RHYTHM: regular rhythm GI: COMMON NORMALS: Soft to palpation and No hepatosplenomegaly present AUSCULTATION: Yes normoactive bowel sounds PALPATION: Yes Soft to palpation, No Tenderness to palpation present (GI), No Guarding due to palpation present (GI) and Yes No hepatosplenomegaly present : COMMON NORMALS: Yes no CVA tenderness BLADDER/KIDNEY EXAM: Yes no CVA tenderness Back/Pelvis: COMMON NORMALS: no CVA tenderness Extremity: COMMON NORMALS: normal to inspection, capillary refill normal, no clubbing, cyanosis or edema, no calf tenderness and no pedal edema Neuro: SENSORIUM/ORIENTATION: Yes oriented to person, Yes oriented to place and Yes oriented to time Skin: COMMON NORMALS: no rashes or lesions noted GENERAL SKIN EXAM: no rashes or lesions noted Course Vital Signs: Vital signs: Vital Signs Temperature 98.1 F 09/23/25 11:00 Pulse Rate 67 09/23/25 11:00 Respiratory Rate 16 09/23/25 11:00 Blood Pressure 117/68 09/23/25 11:00 Pulse Oximetry 100 09/23/25 11:00 Oxygen Delivery Me thod Room Air 09/23/25 11:00 MDM - Abdominal Pain Medical Decision Making Medical decision making Social determinants: Patient senior care requires assistance for ADLs. No family available to assist with cares or history I reviewed the patient's medical record. I reviewed the patient's current home meds. Alternate historians: EMS, senior care staff Differential diagnosis: Cystitis pyelonephritis obstruction nephrostomy tubes Lab Review: Elevated white count at 13.42 anemia with a hemoglobin of 10.2 mild left differential. Potassium 3.2 creatinine 140 which is approximately the patient's baseline. Lactic acid 4.2 UA shows greater than 100 white blood cells per high-power field and greater than 100 red blood cells per high-power field. 3+ leukocyte esterase. Dig level 0.9. Imaging:CT abdomen shows bilateral nephrostomy tubes with mild residual right hydronephrosis improved compared to previous CT 09/16/2025 persistent inflammatory stranding and edema in the right renal pelvis. No evidence of obstruction of the nephrostomy tubes. Assessment of risk Level of risk: High Hospitalization considerations: Hospitalized for pyelonephritis. Reexamination: Pain improved with medications given Assessment and plan: Patient treated for sepsis given sepsis bolus and started on IV antibiotics. Lactic acid elevated. Discussed with hospitalist there is a concern of nephrostomy tubes needing to be replaced. I contacted [facility] where the patient is usually seen for his urology care. Patient told me he is about due to have them nephrostomy tubes replaced in the next couple of weeks. [facility] does not have any urology coverage at this time and will not for the next several days until 1222. There is no urology coverage at [facility] in [place] and [facility] had a several day wait for inpatient beds on medical floor. He contacted [facility] talked to the urology on-call team. They advised that the tubes do not need to be replaced emergently. They recommend hospitalization at our facility for treatment of his pyelonephritis and transfer to his urologist when they become available in the next several days. If condition changes or develop complications we can call back to discuss possible transfer at that time. Discussed with Dr. Brooks orders written for admission Lab Data 09/23/25 04:39 09/23/25 04:39 Labs/Radiology: Radiology Impressions Abdomen/Pelvis CT 09/21/25 10:08 IMPRESSION: 1. Bilateral nephrostomy tubes with moderate residual RIGHT hydronephrosis although improved compared to 09/16/2025. Persistent inflammatory stranding and edema in the RIGHT renal pelvis. 2. LEFT renal collecting system is decompressed. 3. Cholelithiasis. 4. Improved rectal distention 5. Sacral decubitus ulcer with a small amount of air and fluid similar to prior studies 6. No other significant changes Laboratory Results WBC 13.42 10^3/uL (3.29-11.43) H 09/21/25 10:29 RBC 3.69 10^6/uL (3.85-5.65) L 09/21/25 10:29 Hgb 10.10 g/dL (11.27-16.99) L 09/21/25 10:29 Hct 31.7 % (37-53) L 09/21/25 10:29 MCV 85.9 fl (82-101) 09/21/25 10:29 MCH 27.4 pg (27-33) 09/21/25 10:29 MCHC 31.9 g/dL (30-55) 09/21/25 10:29 RDW 15.9 % (12.1-15.1) H 09/21/25 10:29 Plt Count 401 10^3/cmm (157-399) H 09/21/25 10:29 MPV 10.0 fL (7.4-10.4) 09/21/25 10:29 Neut % (Auto) 75.7 % 09/21/25 10:29 Lymph % (Auto) 13.7 % 09/21/25 10:29 Vance % (Auto) 7.5 % 09/21/25 10:29 Eos % (Auto) 2.1 % 09/21/25 10:29 Baso % (Auto) 0.6 % 09/21/25 10:29 Neut # (Auto) 10.15 10^3/uL (1.8-7.7) H 09/21/25 10:29 Lymph # (Auto) 1.8 10^3/uL (0.8-4.8) 09/21/25 10:29 Vance # (Auto) 1.0 10^3/uL (0.2-0.9) H 09/21/25 10:29 Eos # (Auto) 0.3 10^3/uL (0.0-0.8) 09/21/25 10:29 Baso # (Auto) 0.1 10^3/uL (0.0-0.1) 09/21/25 10:29 Nucleated RBC % (auto) 0 % 09/21/25 10:29 Nucleated RBCs # 0.0 /100WBC 09/21/25 10:29 Sodium 138 mmol/L (136-145) 09/21/25 10:58 Potassium 3.2 mmol/L (3.5-5.1) L 09/21/25 10:58 Chloride 102 mmol/L (98-107) 09/21/25 10:58 Carbon Dioxide 20 mmol/L (22-29) L 09/21/25 10:58 Anion Gap 19.2 (5-19) H 09/21/25 10:58 BUN 13 mg/dL (8-23) 09/21/25 10:58 Creatinine 1.4 mg/dL (0.7-1.2) H 09/21/25 10:58 GFR Calculation Not Reportable 09/21/25 10:58 Glucose 267 mg/dL (65-115) H 09/21/25 10:58 Estimat Average Glucose 169 09/21/25 10:29 Hemoglobin A1c 7.5 % (4.0-6.0) H 09/21/25 10:29 Calculated Osmolality 295 mOsm/kg (285-295) 09/21/25 10:58 Lactic Acid 4.2 mmol/L (0.5-2.2) H* 09/21/25 10:58 Lactic Acid (Sepsis) 3.8 mmol/L (0.5-2.2) H 09/21/25 13:05 Calcium 9.0 mg/dL (8.5-10.5) 09/21/25 10:58 Total Bilirubin 0.3 mg/dL (0.15-1.2) 09/21/25 10:58 AST 12 U/L (0-40) 09/21/25 10:58 ALT 7 U/L (0-41) 09/21/25 10:58 Alkaline Phosphatase 96 U/L (40-130) 09/21/25 10:58 Total Protein 6.3 g/dL (6.6-8.7) L 09/21/25 10:58 Albumin 3.3 g/dL (3.5-5.2) L 09/21/25 10:58 Globulin 3.0 g/dL (1.3-4.6) 09/21/25 10:58 Triglycerides 203 mg/dL (0-150) H 09/21/25 10:58 Cholesterol 102 mg/dL (0-200) 09/21/25 10:58 LDL Cholesterol, Calc 29 mg/dL (50-129) L 09/21/25 10:58 HDL Cholesterol 32 mg/dL (60-100) L 09/21/25 10:58 LDL/HDL Ratio 0.91 RATIO (0.00-3.22) 09/21/25 10:58 Cholesterol/HDL Ratio 3.19 mg/dL (1.0-5.00) 09/21/25 10:58 Urine Color Yellow (Yellow) 09/21/25 10:45 Urine Appearance Turbid (CLEAR) A 09/21/25 10:45 Urine pH 6.0 (5-7) 09/21/25 10:45 Ur Specific Bliss 1.015 (1.005-1.030) 09/21/25 10:45 Urine Protein 2+ (Negative) A 09/21/25 10:45 Urine Glucose (UA) Negative (Normal) 09/21/25 10:45 Urine Ketones Negative (Negative) 09/21/25 10:45 Urine Blood 3+ (Negative) A 09/21/25 10:45 Urine Nitrate Negative (Negative) 09/21/25 10:45 Urine Bilirubin Negative (Negative) 09/21/25 10:45 Urine Urobilinogen 0.2 mg/dL (Negative) 09/21/25 10:45 Ur Leukocyte Esterase 3+ (Negative) A 09/21/25 10:45 Urine RBC >100 /hpf (0-2) H 09/21/25 10:45 Urine WBC >100 /hpf (0-5) H 09/21/25 10:45 Ur Squamous Epith Cells 0-5 /hpf (0-5) 09/21/25 10:45 Amorphous Sediment Not Reportable 09/21/25 10:45 Urine Bacteria 2+ /hpf (NONE) H 09/21/25 10:45 Hyaline Casts 10.96 /lpf 09/21/25 10:45 Urine Yeast 4+ /hpf H 09/21/25 10:45 Digoxin 0.9 ng/mL (0.6-1.2) 09/21/25 10:29 All radiology interpretation(s) finalized by discharge Discharge Plan Discharge Patient Disposition: Admitted As Inpatient Admit Provider: Bonifacio Brooks Clinical Impression: Complicated UTI (urinary tract infection), H/O insertion of nephrostomy tube, Acute kidney injury Diabetes mellitus, type II Qualifiers: Diabetes mellitus care home insulin use: with care home use Diabetes mellitus complication status: with neurologic complications Diabetes mellitus complication detail: with polyneuropathy Qualified Code(s): E11.42 - Type 2 diabetes mellitus with diabetic polyneuropathy Dementia Qualifiers: Dementia type: Alzheimer's Alzheimer's disease onset: late onset Dementia severity: mild Dementia behavioral or psychological symptom: with anxiety Qualified Code(s): G30.1 - Alzheimer's disease with late onset Sepsis Qualifiers: Sepsis type: sepsis due to unspecified organism Sepsis acute organ dysfunction status: without acute organ dysfunction Qualified Code(s): A41.9 - Sepsis, unspecified organism Condition: Stable Coding Level of Care Code ED Medical Dermatologist for Say Muñoz
[2025-09-21] MEDS: morphine 4 mg/mL SDV 1 mL IVP (10:39)
[2025-09-21] MEDS: ondansetron 2 mg/ML SDV 2 mL 4 MG IVP (10:39)
[2025-09-21 10:57] LABS: Glucose Urine UA Negative (Normal); Nitrate Urine Negative (Negative); Specific Gravity, Urine 1.015 (1.005-1.030)
[2025-09-21 11:00] LABS: Add Urine Microscopic? YES; Universal Test for UA Present (0)
[2025-09-21 11:02] LABS: UA Slide Review UA Slide Review Perf
--- OUTSIDE RECORDS SUMMARY | 2025-09-21 11:25 | XMS_ITS | Encounter Summary ---
Author Organization [facility] Address [address] [facility] [facility] [address] [place] [address] Phone Care Team Providers Care Iron Carrier Name Role Phone Trisha Urena MD Primary Care Provider [phone] Encounter Details Date Type Department Care Team (Late st Contact Info) Description 09/14/2025 Transcribe Orders [facility] [address] [place] [address] Judy Sinha [address] [place] [address] Social History Tobacco Use Types Packs/Day Years [...] on filedocumented in this encounter Care Teams Iron Carrier Relationship Specialty Start Date End Date Trisha Urena MD [address] [place] [address] PCP - General Family Medicine 05/20/23 documented as of this encounter
--- OUTSIDE RECORDS SUMMARY | 2025-09-21 11:25 | XMS_ITS | Continuity of Care Document ---
Author Organization [facility] Tejinder, Kayla, [facility] ([facility]) Address [address] [facility] [place] [address] Assessment No assessment recorded. Plan of Treatment [...] By Organization Details Last Modified Time 06/22/2025 [id number] patient evaluate d in ER as PICC line was occluded. Replaced and working properly now. [email or web address] Not available 06/28/2025 12:25:11 Reason for Referral None Reported. Problems Name Problem SNOMED Code Status Onset Date Resolution Date Notes Provider Name and Address Organization Details Recorded Time Hospital inpatient stay within past 30 days 9546486092215 Active 2022 [facility] 12:23:24 Spinal stenosis of lumbar region 25454343 Active 2022 [facility] 12:23:25 Atrial fibrillati on 00283886 Active 2022 [facility] 12:23:26 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 0131308242007 09 Active 2022 [facility] 12:23:27 Neurogenic urinary bladder 897943302 Active 2022 [facility] 3 12:23:29 Essential hypertensi on 39808666 Active 2022 [facility], [facility] 3 12:23:30 Difficulty sleeping 460522508 Active 2022 [facility], [facility] 3 10:14:44 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 2264958 Active 2022 [facility], [facility] 3 12:10:22 Uncontroll ed type 2 diabetes mellitus 283719961 Active 2022 [facility], [facility] 3 12:10:23 Acute urinary tract infection 932307759 Active 2022 [facility], [facility] 3 12:10:26 Sepsis 17967649 Active 2022 [facility], [facility] 3 15:15:01 Metabolic encephalop athy 76409163 Active 2022 [facility], [facility] 3 15:15:02 Pneumonia 518780262 Active 2022 [facility], [facility] 3 15:15:02 Acute pyelonephr itis 19450374 Active 2022 [facility], [facility] 3 15:15:04 Anemia due to blood loss 472207589 Active 2022 [facility], [facility] 3 15:15:06 Need for personal care assistance 3715273421366 9106 [facility] 13:09:05 Chronic pain 80373826 [facility] 15:47:08 Osteomyeli tis 89144560 [facility] 12:18:14 Lumbar discitis 844425474 [facility] 12:18:29 Urinary tract infectious disease 76538027 [facility] 5 15:46:49 Problem Notes None recorded. Medical Equipment None Reported. Allergies Allergen ID Allergen Name Allergen Category Reaction Reaction Severity Criticality Documentation Date Start Date Code Code System Note Provider Name and Address Organization Details Recorded Time [address]002 [employer] environme nt,medica tion Not available Not available Not available 09/19/20252024 89592 6 RxNorm Not Available francisco - External Data Service - prod 5 09:15:04 Medications Name Sig Start Date Stop Date [...] sent to pharmacy . *dose increase *; 34023; Recorded 01/22/20 22 12:43PM by Jackeline Todd [...] 0; Recorded 01/22/20 22 8:07AM by Jackeline e M. Todd, RN, Office Visit; Not Available Not [...] active 0; Recorded 01/22/20 22 8:07AM by Jackleine Todd RN, Office Visit; Not Available Not [...] Updated DateTime 5 172.72 cm 26.6 kg/m2 08094.6 6 g 77 /min 16 /min 98 [degF] 97 % 132/66 mm[Hg] [facility] 12:44:14 Social History None recorded. Functional Status None recorded. Mental Status None recorded. Family History Nothing Reported. Medical History No medical history recorded. Immunizations Vaccine Type Date Status Note Provider Nam e and Address Organization Details Recorded Time zoster live 9 completed Not Available [facility] 09/19/2025 09:07:45 pneumococcal polysaccharide PPV23 1 completed Not Available [facility] 09/19/2025 09:07:45 pneumococcal polysaccharide PPV23 4 completed Not Available [facility] 09/19/2025 09:07:45 Tdap 4 completed Not Available [facility] 09/19/2025 09:07:45 Pneumococcal conjugate PCV 13 5 completed Not Available [facility] 09/19/2025 09:07:45 pneumococcal polysaccharide PPV23 6 completed Not Available [facility] 09/19/2025 09:07:45 Tdap 2 completed Not Available [facility] 09/19/2025 09:07:45 zoster recombinant 2 completed Not Available [facility] 09/19/2025 09:07:45 zoster recombinant 3 completed Not Available [facility] 09/19/2025 09:07:45 Influenza, split virus, quadrivalent, PF 3 completed Not Available [facility] 09/19/2025 09:07:45 Influenza, split virus, trivalent, preservative 0 completed Not Available [facility] 05/[facility]23 02:33:15 Past Encounters Encounter ID Performer Location Encounter Start Date Encounter Closed Date Diagnosis/Indication Diagnosis SNOMED-CT Code Diagnosis ICD10 Code Diagnosis IMO Codes Diagnosis Note [id number] Vinnie Garcia DO [facility] ([facility]) [address] [place] [address] [phone] [id number] 05/29/2025 14:25:03 05/30/2025 09:20:22 Hyperglycemia due to type 2 diabetes mellitus 4343626634 30232 E11.65 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 9127547 I11.0 Essential hypertension 27890433 I10 Atrial fibrillation 4943 6004 I48.91 [id number] Vinnie Garcia DO [facility] ([facility]) [address] [place] [address] [id number] 06/15/2025 12:16:39 06/20/2025 10:33:14 Hospital inpatient stay within past 30 days 3589175621 106 Z76.89 Acute urin viola tract infection 685804790 N39.0 149365 [id number] Vinnie Garcia DO [facility] ([facility]) [address] [place] [address] [phone] 5 06/22/2025 09:39:44 06/28/2025 12:52:37 Spinal stenosis of lumbar region 03220450 M48.062 Atrial fibrillation 4943 6004 I48.91 Essential hypertension 56825474 I10 Displaceme nt of nephrostomy tube 210258234 T83.022A 305741 Blocked catheter 1648566 005 T82.898D [id number] Health Concerns Section Related Observation LastModified by [...] HPI ER follow up Vinnie Garcia DO [address] [place], [address], [facility] 06/28/2025 12:25:39
--- OUTSIDE RECORDS SUMMARY | 2025-09-21 11:25 | XMS_ITS | CCD ---
Author Name Interface, [id number] lity Address [place], [place] [address] Organization [facility] Address [facility], [place] [address] Reason for Visit Social History Date Name Value 04/12/2025 Sex Male
--- OUTSIDE RECORDS SUMMARY | 2025-09-21 11:25 | XMS_ITS | Continuity of Care Document ---
Author Organization [facility] Kayla Marr, [facility] ([facility]) Address [address] [place] [address] Assessment No assessment recorded. Plan of Treatment [...] By Organization Details Last Modified Time 07/10/2025 [id number] Pain worse over the weekend, but improved now. Staff to monitor. [email or web address] Not available 07/10/2025 14:39:50 Reason for Referral None Reported. 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 3 12:23:29 Essential hypertensi on 87506654 Active 2022 EVENS TODD [facility], [facility] 3 12:23:30 Difficulty sleeping 037305726 Active 2022 EVENS TODD [facility], [facility] 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 3 12:10:22 Uncontroll ed type 2 diabetes mellitus 878329479 Active 2022 EVENS TODD [facility], [facility] 3 12:10:23 Acute urinary tract infection 749573981 Active 2022 EV[facility] TODD [facility], [facility] 3 12:10:26 Sepsis 79310406 Active 2022 [facility] TODD [facility], [facility] 3 15:15:01 Metabolic encephalop athy 96757510 Active 2022 [facility] TODD [facility], [facility] 3 15:15:02 Pneumonia 559156047 Active 2022 EV[facility] TODD [facility], [facility] 3 15:15:02 Acute pyelonephr itis 20144416 Active 2022 EV[facility] TODD [facility], [facility] 3 15:15:04 Anemia due to blood loss 303159829 Active 2022 [facility]ENSJOSE TODD [facility], [facility] 3 15:15:06 Need for personal care assistance 2539026033708 9106 [facility] 13:09:05 Chronic pain 57526260 Active 2023 EVENS birch, [facility] 4 15:47:08 Osteomyeli tis 87828096 [facility] 12:18:14 Lumbar discitis 754077580 [facility] 12:18:29 Urinary tract infectious disease 82962917 [facility] 5 15:46:49 Problem Notes None recorded. Medical Equipment None Reported. Allergies Allergen ID Allergen Name Allergen Category Reaction Reaction Severity Criticality Documentation Date Start Date Code Code System Note Provider Name and Address Organization Details Recorded Time 75011 [employer] environme nt,medica tion Not available Not available Not available 09/19/20252024 02408 6 RxNorm Not Available francisco - External [...] sent to pharmacy . *dose increase *; 35180; Recorded 01/22/20 22 12:43PM by Jackeline Todd [...] Updated DateTime 5 172.72 cm 26.8 kg/m2 61335.2 6 g 73 /min 20 /min 98.3 [degF] 99 % 134/75 mm[Hg] EVENS TODD [facility] 5 14:37:45 Social History None recorded. Functional Status None recorded. Mental Status None recorded. Family History Nothing Reported. Medical History No medical history recorded. Immunizations Vaccine Type Date Status Note Provider Nam e and Address Organization Details Recorded Time zoster live 9 completed Not Available [facility] 09/19/2025 09:07:45 pneumococcal polysaccharide PPV23 1 completed Not Available [facility] 09/19/2025 09:07:45 pneumococcal polysaccharide PPV23 4 completed Not Available [facility] 09/19/2025 09:07:45 Tdap 4 completed Not Available [facility] 09/19/2025 09:07:45 Pneumococcal conjugate PCV 13 5 completed Not Available [facility] 09/19/2025 09:07:45 pneumococcal polysaccharide PPV23 6 completed Not Available [facility] 09/19/2025 09:07:45 Tdap 2 completed Not Available [facility] 09/19/2025 09:07:45 zoster recombinant 2 completed Not Available [facility] 09/19/2025 09:07:45 zoster recombinant 3 completed Not Available [facility] 09/19/2025 09:07:45 Influenza, split virus, quadrivalent, PF 3 completed Not Available [facility] 09/19/2025 09:07:45 Influenza, split virus, trivalent, preservative 0 completed Not Available [facility] 05/02/2023 02:33:15 Past Encounters Encounter ID Performer Location Encounter Start Date Encounter Closed Date Diagnosis/Indication Diagnosis SNOMED-CT Code Diagnosis ICD10 Code Diagnosis IMO Codes Diagnosis Note [id number] Vinnie Garcia DO [facility] ([facility]) [address] [place] [address] 06/15/2025 12:16:39 06/20/2025 10:33:14 Hospital inpatient stay within past 30 days [id number] 106 Z76.89 Acute urin viola tract infection 008104176 N39.0 757315 [id number] Vinnie Garcia DO [facility] ([facility]) [address] [place] [address] 06/22/2025 09:39:44 06/28/2025 12:52:37 Spinal stenosis of lumbar region 37365071 M48.062 Atrial fibrillation 4943 6004 I48.91 Essential hypertension 74567647 I10 Displaceme nt of nephrostomy tube 560866177 T83.022A 124433 Blocked catheter 5534034 005 T82.898D [id number] Vinnie Garcia DO [facility] ([facility]) [address] [place] [address] 07/10/2025 14:20:27 07/11/2025 15:26:48 Lumbar discitis 594879944 M46.46 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 Vinnie Garcia, DO [address] [place] [address], [phone], [facility] 07/10/2025 14:41:06
[2025-09-21 11:26] LABS: Alanine Aminotransferase 7 U/L (0-41); Albumin Level 3.3 g/dL (3.5-5.2); Alkaline Phosphatase 96 U/L (40-130); Anion Gap 19.2 (5-19); Aspartate Amino Transferase 12 U/L (0-40); Blood Urea Nitrogen 13 mg/dL (8-23); Calcium 9.0 mg/dL (8.5-10.5); Carbon Dioxide 20 mmol/L (22-29); Chloride 102 mmol/L (98-107); Globulin 3.0 g/dL (1.3-4.6); Glucose 267 mg/dL (65-115); Osmolality Calculated 295 mOsm/kg (285-295); Potassium 3.2 mmol/L (3.5-5.1); Sodium 138 mmol/L (136-145); Total Protein 6.3 g/dL (6.6-8.7)
--- OUTSIDE RECORDS SUMMARY | 2025-09-21 11:26 | XMS_ITS | Continuity of Care Document ---
Author Organization [facility] Tejinder, Kayla, [facility] ([facility]) Address [address] [place] [address] Assessment No assessment recorded. Plan of Treatment [...] By Organization Details Last Modified Time 09/11/2025 [id number] Stomach upset. Will d/c metformin. Increase norco to QID prn. Start colace daily. [email or web address] Not available 09/13/2025 17:15:20 Reason for Referral None Reported. 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 3 12:23:29 Essential hypertensi on 37397387 Active 2022 [facility] TODD [facility], [facility] 3 12:23:30 Difficulty sleeping 893491171 Active 2022 [facility] TODD [facility], [facility] 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 3 12:10:22 Uncontroll ed type 2 diabetes mellitus 444518235 Active 2022 [facility] TODD [facility], [facility] 3 12:10:23 Acute urinary tract infection 189075696 Active 2022 [facility] TODD [facility], [facility] 3 12:10:26 Sepsis 30937215 Active 2022 [facility] TODD [facility], [facility] 3 15:15:01 Metabolic encephalop athy 71533074 Active 2022 [facility]JO[facility] TODD [facility], [facility] 3 15:15:02 Pneumonia 176321696 Active 2022 [facility] TODD [facility], [facility] 3 15:15:02 Acute pyelonephr itis 82748253 Active 2022 [facility] TODD [facility] 3 15:15:04 Anemia due to blood loss 338538194 Active 2022 [facility]JO[facility] TODD [facility], [facility] 3 15:15:06 Need for personal care assistance 0945361334869 9106 [facility] 13:09:05 Chronic pain 32153826 [facility] 4 15:47:08 Osteomyeli tis 68151306 [facility] 4 12:18:14 Lumbar discitis 558079317 [facility] 4 12:18:29 Urinary tract infectious disease 97733209 [facility] 5 15:46:49 Problem Notes None recorded. Medical Equipment None Reported. Allergies Allergen ID Allergen Name Allergen Category Reaction Reaction Severity Criticality Documentation Date Start Date Code Code System Note Provider Name and Address Organization Details Recorded Time 06613 [employer] environme nt,medica tion Not available Not available Not available 09/19/20252024 69260 6 RxNorm Not Available francisco - External [...] sent to pharmacy . *dose increase *; 45107; Recorded 01/22/20 22 12:43PM by Jackeline Todd [...] Updated DateTime 5 172.72 cm 26.2 kg/m2 83610.8 9 g 76 /min 12 /min 97.9 [degF] 97 % 104/58 mm[Hg] EVENS TODD [facility], [facility] 5 10:26:59 Social History None recorded. Functional Status None recorded. Mental Status None recorded. Family History Nothing Reported. Medical History No medical history recorded. Immunizations Vaccine Type Date Status Note Provider Nam e and Address Organization Details Recorded Time zoster live 9 completed Not Available [facility] 09/19/2025 09:07:45 pneumococcal polysaccharide PPV23 1 completed Not Available [facility] 09/19/2025 09:07:45 pneumococcal polysaccharide PPV23 4 completed Not Available [facility] 09/19/2025 09:07:45 Tdap 4 completed Not Available [facility] 09/19/2025 09:07:45 Pneumococcal conjugate PCV 13 5 completed Not Available [facility] 09/19/2025 09:07:45 pneumococcal polysaccharide PPV23 6 completed Not Available [facility] 09/19/2025 09:07:45 Tdap 2 completed Not Available [facility] 09/19/[facility]25 09:07:45 zoster recombinant 2 completed Not Available [facility] 09/19/2025 09:07:45 zoster recombinant 3 completed Not Available [facility] 09/19/2025 09:07:45 Influenza, split virus, quadrivalent, PF 3 completed Not Available [facility] 09/19/2025 09:07:45 Influenza, split virus, trivalent, preservative 0 completed Not Available [facility] 05/02/2023 02:33:15 Past Encounters Encounter ID Performer Location Encounter Start Date Encounter Closed Date Diagnosis/Indication Diagnosis SNOMED-CT Code Diagnosis ICD10 Code Diagnosis IMO Codes Diagnosis Note [id number] Vinnie Garcia DO [facility] ([facility]) [address] [place] [address] 08/14/2025 13:22:40 08/17/2025 16:49:52 Hospital inpatient stay within past 30 days [id number] 106 Z76.89 Urinary tr act infectious disease 19931279 N39.0 [id number] 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 2887732 I11.0 Essential hypertension 72821183 I10 Atrial fibrillation 4943 6004 I48.91 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 Vinnie Garcia DO [address] [place] [address], [phone], [facility] - [facility] 09/13/2025 17:15:32
--- OUTSIDE RECORDS SUMMARY | 2025-09-21 11:26 | XMS_ITS | Patient Health Record ---
Author Organization [facility] Address [address] [place] [address] Care Team Providers Care Spragger Name Role Phone Vinnie Garcia DO Primary Care Provider UnavailJohn Good JR Unavailable [phone] Nury Flores Unavailable [phone] Frankie Hendrix Unavailable [phone] Ila Fischer Unavailable [phone] Allergies Allergen (clinical drug ingredient) Drug/Non Drug Allergy documented on EMR Reaction Allergy Type Onset Date Status atorvastatin Lipitor Unknown Drug Allergy Acti ve pravastatin Pravachol Unknown Drug Allergy Activ e gemfibrozil Gemfibrozil Unknown Drug Allergy Act arsenio pravastatin Pravastatin Unknown Drug Allergy Act arsenio Results Component Value Reference Range Flag Notes Culture Urine 72769 Reviewed date:07/05/2025 08:18:39 AM Interpretation: Performing Lab: Notes/Report: Culture Urine AKI Kelly Culture Urine t: Culture Urine Culture Urine Access [id number] Culture Urine n: Culture Urine Microbiology Culture [...] Culture Urine O1: Culture Urine (Culture Urine 03290) Culture Urine Diagnosis Description: Chronic obstructive pyelonephritis Microscopic Urine 26026 Reviewed date:07/05/2025 08:18:39 AM Interpretation: Performing Lab: Notes/Report: Diagnosis Description: Chronic obstructive pyelonephritis RBC U 3 NA WBC U 12 0-5 /HPF HI Bacteria None Seen NA Hyaline Casts 4 NA SQ EPI <1 NA Basic Metabolic Panel (BMP) 94132 Reviewed date:01/02/2025 09:13:51 AM Interpretation: Performing Lab: Notes/Report: 5407 @ 2045; Report attempt @2049 5407 @ 2045 Sodium 138 136-145 MMOL/L Potassium 4.5 3.5-5.1 MMOL/L Chloride 105 98-107 MMOL/L CO2 28.0 20.0-31.0 MMOL/L Glucose Serum 147 71-110 MG/DL HI Testing p erformed at [facility], [address] [place] [address] [place] [address]. CLIA ID#: [id number] BUN 24 7-21 MG/DL HI Creat .84 .57-1.17 MG/DL T-oyasva-j-benzoquin one imine (NAPQI) is a metabolite of [...] Osmo Serum,Calculated 293 280-300 MOSM/KG Phosphorus (B) 03216 Reviewed date:01/02/2025 09:13:47 AM Interpretation: Performing Lab: Notes/Report: 5407 @ 2045; Report attempt @2049 5407 @ 2045 Phos 3.2 2.4-5.1 MG/DL zzzCT Outside CD Reviewed date:06/11/2025 11:56:54 AM Interpretation: Performing Lab: Notes/Report: fyx=[id number]&org=iSite zzzMRI Outside CD Reviewed date:06/11/2025 11:56:54 AM Interpretation: Performing Lab: Notes/Report: war=[id number]&org=iSite zzzMRI Outside CD Reviewed date:06/11/2025 11:56:54 AM Interpretation: Performing Lab: Notes/Report: pdo=[id number]&org=iSite [facility] MRI Lumbar Spine w/ + w/ o Cont-[id number] Reviewed date:06/11/2025 11:56:54 AM Interpretation: Performing Lab: Notes/Report: See Below For Report MRI Lumbar Spine w/ + w/o Cont Read See Below For Report Culture Urine 86020 (Not yet reviewed by provider) Interpretation: Performing Lab: Notes/Report: Culture Urine Lei DEAL, AKI CHURCH Culture Urine t: Culture Urine Culture Urine Accessio [id number] Culture Urine n: Culture Urine Microbiology Culture [...] Urine No further work-up i s indicated CBC w\ Auto Diff 23255 Reviewed date:06/14/2025 08:10:19 AM Interpretation: Performing Lab: [...] % Lymph Auto% 19.7 22.0-44.0 % LOW Lenoir Auto% 6.9 3.0-7.0 % Eos Auto% 3.4 2.0-4.0 % Baso Auto% 0.8 0.0-1.0 % Imm Gran% .4 .0-.4 % Neutro Abs 8.99 .80-7.70 HI Absolute Neutrophil Count 8990 NA Lymph Abs 2.58 .10-4.10 Lenoir Abs .90 .20-1.00 Eos Abs .44 .00-.40 HI Baso Abs .11 .00-.20 Imm Gran Abs .05 .00-.10 NRBC# .00 .00-.20 NRBC% .00 .00-.20 /100 intact WBC's UA Microscopic--32968 Reviewed date:06/14/2025 08:10:19 AM Interpretation: Performing Lab: Notes/Report: Micro UA ordered by Discern Expert Rules system. RBC U 47 NA WBC U 90 0-5 /HPF HI Bacteria None Seen SQ EPI 2 NA Budding Yeast Present Urinalysis--60871 Reviewed date:06/14/2025 08:10:19 AM Interpretation: Performing Lab: Notes/Report: Color UA Yellow NA Clarity UA Clear NA Specific gravity UA 1.009 1.005-1.030 Urine pH 6.5 5.0-8.0 NA Urine Glucose Trace NA Urine Bilirubin Negative NA Urine Ketone Negative NA Urine Blood 2+ NA Urine Protein 1+ NA Urobilinogen 0.2 0.1-1.0 NA Urine Nitrite Negative NA Urine Leukocyte 3+ NA Normal UA No [place] 22871 Reviewed date:01/02/2025 09:12:14 AM Interpretation: Performing Lab: Notes/Report: 5407 @ 2045; Report attempt @2049 5407 @ 2045 CRP .62 .40-1.00 MG/DL Culture Urine 57421 Reviewed date:01/05/2025 11:43:08 AM Interpretation: Performing Lab: Notes/Report: Culture Urine AKI Kelly Culture Urine t: Culture Urine Culture Urine Accessio [id number] Culture Urine n: Culture Urine Microbiology Culture [...] No further work-up i [place] 22544 Reviewed date:01/05/2025 11:54:59 AM Interpretation: Performing Lab: Notes/Report: 5407 @ 2045; Report attempt @2049 5407 @ 2045 CRP 5.22 .40-1.00 MG/DL HI UA Microscopic--92467 Reviewed date:01/31/2025 08:27:52 AM Interpretation: Performing Lab: Notes/Report: Micro UA ordered by Sian's Plan Expert Rules system. 5407 @ 2045; Report attempt @2049 5407 @ 2045 RBC U 655 NA WBC U >999 0-5 /HPF HI Bacteria 1+ Hyaline Casts 3 NA Granular Casts Present SQ EPI 1 NA Budding Yeast Present Urinalysis--41581 Reviewed date:01/31/2025 08:27:55 AM Interpretation: Performing Lab: Notes/Report: need microscopic 5407 @ 6; Report attempt @2049 5407 @ 2045 Color [...] MRI Lumbar Spine w/ + w/o Co nt-[id number] Reviewed date:01/31/2025 08:29:45 AM Interpretation: Performing Lab: Notes/Report: See Below For Report Technique: Sagittal and axial T2 and pre and post contrast T1 and 5407 @ 2045; Report attempt @2049 Read See Below For Report Partial Thromboplastin Time 91621 Reviewed date:12/23/2024 08:46:50 PM Interpretation: Performing Lab: Notes/Report: 5407 @ 2045; Report attempt @2049 5407 @ 2045 PTT 28.9 22.6-31.8 SEC Therapeutic Range: 60-100. Critical Value Starting at > 100. 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 [address]. CLIA ID#: [id number] BUN 19 7-21 MG/DL Creat 1.19 .57-1.17 MG/DL HI U-qwvpwk-l-benzoquin one imine (NAPQI) is a metabolite of [...] UNIT/L Osmo Serum,Calculated 304 280-300 MOSM/KG HI CBC w\ Auto Diff 32544 Reviewed date:09/15/2025 12:52:00 PM Interpretation: Performing Lab: [...] HI Lymph Auto% 17.1 22.0-44.0 % LOW Lenoir Auto% 5.6 3.0-7.0 % Eos Auto% 2.1 2.0-4.0 % Baso Auto% 0.7 0.0-1.0 % Imm Gran% .6 .0-.4 % HI Neutro Abs 9.79 .80-7.70 HI Absolute Neutrophil Count 9790 NA Lymph Abs 2.27 .10-4.10 Lenoir Abs .74 .20-1.00 Eos Abs .28 .00-.40 Baso Abs .09 .00-.20 Imm Gran Abs .08 .00-.10 NRBC# .00 .00-.20 NRBC% .00 .00-.20 /100 intact WBC's Culture Urine 17774 Reviewed date:12/23/2024 09:24:51 AM Interpretation: Performing Lab: Notes/Report: Culture Urine AKI Kelly Culture Urine t: Culture Urine Culture Urine Accessio [id number] Culture Urine n: Culture Urine Microbiology Culture [...] Culture Urine O1: Culture Urine (Culture Urine 22331) Culture Urine Right perc tube Culture Urine Diagnosis Description: Other abnormal findings in urine Urinalysis--96208 Reviewed date:01/05/2025 11:46:37 AM Interpretation: Performing Lab: [...] Leukocyte 3+ NA Normal UA No UA Microscopic--81425 Reviewed date:01/05/2025 11:46:34 AM Interpretation: Performing Lab: Notes/Report: Micro UA ordered by Plastio Rules system. 5407 @ 2045; Report attempt @2049 5407 @ 2045 RBC U 3 NA WBC U 375 0-5 /HPF HI Bacteria None Seen Hyaline Casts 3 NA SQ EPI <1 NA CRP 10002 Reviewed date:01/05/2025 11:43:12 AM Interpretation: Performing Lab: Notes/Report: 5407 @ 2045; Report attempt @2049 5407 @ 2045 CRP 1.44 .40-1.00 MG/DL HI MRI Lumbar Spine w/ + w/o Co nt-[id number] Reviewed date:02/01/2025 08:19:31 AM Interpretation: Performing Lab: Notes/Report: eab=[id number]&org=iSite Culture Urine 76866 Reviewed date:01/31/2025 08:27:40 AM Interpretation: Performing Lab: Notes/Report: Culture Urine AKI Kelly Culture Urine t: Culture Urine Culture Urine Access [id number] Culture Urine n: Culture Urine Microbiology Culture [...] Urine No further work-up i s indicated IMH MRI Lumbar Spine w/ + w/ o Cont-[id number] Reviewed date:06/11/2025 11:56:54 AM Interpretation: Performing Lab: Notes/Report: [id number]=[id number]&org=iSite Culture Urine 76791 Reviewed date:12/23/2024 09:25:47 AM Interpretation: Performing Lab: Notes/Report: Culture Urine AKI Kelly Culture Urine t: Culture Urine Culture Urine Accessio [id number] Culture Urine n: Culture Urine Microbiology Culture [...] Culture Urine O1: Culture Urine (Culture Urine 07426) Culture Urine Diagnosis Description: Other abnormal findings in urine zzzNephrostomy Tube Replacem ent Reviewed date:08/10/2025 03:22:59 PM Interpretation: Performing Lab: Notes/Report: See Below For Report Nephrostomy Tube Replacement Read See Below For Report zzzNephrostomy Tube Replacem ent Reviewed date:08/10/2025 03:22:54 PM Interpretation: Performing Lab: Notes/Report: jfa=[id number]&org=iSite CBC w\ Auto Diff 19914 Reviewed date:06/14/2025 08:10:19 AM Interpretation: Performing Lab: [...] 40.0-70.0 % Lymph Auto% 25.3 22.0-44.0 % Lenoir Auto% 5.9 3.0-7.0 % Eos Auto% 4.0 2.0-4.0 % Baso Auto% 0.8 0.0-1.0 % Imm Gran% .5 .0-.4 % HI Neutro Abs 7.35 .80-7.70 Absolute Neutrophil Count 7350 NA Lymph Abs 2.93 .10-4.10 Lenoir Abs .68 .20-1.00 Eos Abs .46 .00-.40 HI Baso Abs .09 .00-.20 Imm Gran Abs .06 .00-.10 NRBC# .00 .00-.20 NRBC% .00 .00-.20 /100 intact WBC's CRP 44167 Reviewed date:01/02/2025 09:13:54 AM Interpretation: Performing Lab: Notes/Report: Pt is a line draw 12/26/2024 23:09:44 meghan 5407 @ 2045; Report attempt @2049 5407 @ 2045 CRP .79 .40-1.00 MG/DL CRP 56910 Reviewed date:01/05/2025 11:41:55 AM Interpretation: Performing Lab: Notes/Report: LINE 5407 @ 2045; Report attempt @2049 5407 @ 2045 CRP .94 .40-1.00 MG/DL CBC w\ Auto Diff 92310 Reviewed date:01/26/2025 02:23:47 PM Interpretation: Performing Lab: [...] 40.0-70.0 % Lymph Auto% 23.9 22.0-44.0 % Lenoir Auto% 6.4 3.0-7.0 % Eos Auto% 3.7 2.0-4.0 % Baso Auto% 0.8 0.0-1.0 % Imm Gran% .3 .0-.4 % Neutro Abs 6.70 .80-7.70 Absolute Neutrophil Count 6700 NA Lymph Abs 2.47 .10-4.10 Lenoir Abs .66 .20-1.00 Eos Abs .38 .00-.40 Baso Abs .08 .00-.20 Imm Gran Abs .03 .00-.10 NRBC# .00 .00-.20 NRBC% .00 .00-.20 /100 intact WBC's Comprehensive Metabolic Pane l (CMP) 74035 Reviewed date:01/26/2025 02:23:47 PM Interpretation: Performing Lab: Notes/Report: Diagnosis Description: Tubulo-interstitial nephritis, not specified as acute or chronic Glucose Serum 280 71-110 MG/DL HI Testing p erformed at [facility], [address] [place] [address] [place] [address]. CLIA ID#: [id number] BUN 14 7-21 MG/DL Creat .77 .57-1.17 MG/DL E-mwfeck-m-benzoquin one imine (NAPQI) is a metabolite of [...] Osmo Serum,Calculated 304 280-300 MOSM/KG HI CRP 06021 Reviewed date:01/26/2025 02:23:47 PM Interpretation: Performing Lab: Notes/Report: Diagnosis Description: Tubulo-interstitial nephritis, not specified as acute or chronic CRP .83 .40-1.00 MG/DL Vancomycin Trough 31629 Reviewed date:02/01/2025 08:19:38 AM Interpretation: Performing Lab: Notes/Report: Vanco Tr 36.4 8.0-20.0 MCG/ML CRIT called to belen freeman 12/21/2024 13:23:48 dg CRP 85577 Reviewed date:06/14/2025 08:10:19 AM Interpretation: Performing Lab: Notes/Report: CRP 4.79 .40-1.00 MG/DL HI Reason For Referral Reason UTI (Expires 6) 12/20 Diagnosis 1 UTI symptoms (R39.9) Referring Provider First Name Judy Referring Provider Last Name Ernestine Referring Provider Speciality Family Med icine Referred Organization [facility] rna Medicine & Infectious Disease Referred Provider Nury Flores Referred Address [address] [place] [id number], Referred Provider Specialty Nurse Tolu elizalde Referral Priority Routine Reason Urinary tract infect ion Diagnosis 1 Urinary tract infect ion (N39.0) Referring Provider First Name Carla bettencourt Referring Provider Last Name LA [facility] Referred Organization [facility] Referred Provider Frankie Hendrix Referred Address [address],[place],[address],[place] Referred Provider Specialty Urology Referral Priority Routine Reason Nephrostomy tubes Diagnosis 1 Nephrostomy status ( Z93.6) Referring Provider First Name Trisha Referring Provider Last Name [facility] Referring Provider [facility] Referred Organization [facility] Referred Provider Frankie Hendrix Referred Address [address],[place],[address],[place] Referred Provider Specialty Urology Referral Priority Routine Reason hydronephrosis Diagnosis 1 Hydronephrosis (N13. 30) Referring Provider First Name Carla bettencourt Referring Provider Last Name LA Referring Provider [facility] Referred Organization [facility] Referred Provider Frankie Hendrix Referred Address [address],[place], [place],[address],[place] Referred Provider Specialty Urology Referral Priority Routine Reason Chronic Kidney Disea se Diagnosis 1 Ureteral stent prese nt (Z96.0) Diagnosis 2 Hydronephrosis, unsp ecified hydronephrosis type (N13.30) Diagnosis 3 Pyelonephritis (N12) Referral Organization [facility] Medicine & Infectious Disease Referring Provider First Name Nury Referring Provider Last Name Mark Referring Provider Speciality Nurse Dedra ibarra Referred Provider Salty Nova Referred Provider Specialty Nephrology Referral Priority Routine Medications Medication SIG (Take, Route, Frequency, Duration) Notes Start Date End Date Status Coenzyme Q10 10 MG Capsule as directed Orally Not-Takin g cholecalciferol 1.25 MG Oral Tablet ORAL *Reorder from [employer] for eRx and Interaction Alerts* 07/23/2023 Not-Taking Cranberry 250 MG Tablet as directed Orally Not-Takin g Colace 100 MG Capsule 1 capsule as needed Orally Once a day Not-Taking Dulcolax 10 MG Suppository 1 suppository as needed Rectal Once a day Not-Taking Diltiazem Hydrochloride 60 MG Oral Tablet ORAL *Reorder from [employer] for eRx and Interaction Alerts* 07/23/2023 Not-Taking [...] MG/ACTUAT Dry Powder Inhaler INTRAPULMONARY *Reorder from [employer] for eRx and Interaction Alerts* 07/23/2023 Not-Taking ubidecarenone 30 MG Oral Capsule ORAL *Reorder from [employer] for eRx and Interaction Alerts* 07/23/2023 Not-Taking Tylenol 325 MG Tablet 1 tablet as needed Orally every 6 hrs 03/23/2024 Not-Taking vitamin B12 1 MG Sublingual Tablet *Reorder from [employer] for eRx and Interaction Alerts* 07/23/2023 Not-Taking Amiodarone HCl 200 MG Tablet 1 tablet Orally Once a day Not-Taking Carvedilol 6.25 MG Tablet 1 tablet with food Orally Twice a day Not-Taking bisacodyl 10 MG Rectal Suppository [Dulcolax] RECTAL *Reorder from [employer] for eRx and Interaction Alerts* 07/23/2023 Not-Taking NovoLOG 100 UNIT/ML Solution as directed Injection Not-Taking mometasone furoate 0.05 MG/ACTUAT Metered Dose Nasal [place] *Reorder from [employer] for eRx and Interaction Alerts* 07/23/2023 Not-Taking [...] 40 MG Oral Tablet ORAL *Reorder from [employer] for eRx and Interaction Alerts* 07/23/2023 Not-Taking Omeprazole 20 MG Capsule Delayed Release 1 capsule 1/2 to 1 hour before morning meal Orally Once a day Active rivaroxaban 20 MG Oral Tablet [Xarelto] ORAL *Reorder from [employer] for eRx and Interaction Alerts* 07/23/2023 Not-Taking [...] 100 UNT/ML Injectable Solution [NovoLog] *Reorder from [employer] for eRx and Interaction Alerts* 09/25/2023 Not-Taking Melatonin 1 MG/4ML Liquid 4 mL at bedtime as needed Orally Once a day Not-Taking Losartan Potassium 50 MG Oral Tablet ORAL *Reorder from [employer] for eRx and Interaction Alerts* 07/23/2023 Not-Taking [...] 1 MG Oral Tablet ORAL *Reorder from [employer] for eRx and Interaction Alerts* 07/23/2023 Not-Taking Fluticasone Propionate 50 MCG/ACT Suspension 1 spray in each nostril Nasally Twice a day Active HYDROcodone-Acetamin ophen 7.5-325 MG Tablet 1 tablet as needed Orally every 6 hrs Active Metoprolol Tartrate 50 MG Tablet 1 tablet with food Orally Twice a day Not-Taking Furosemide 20 MG Oral Tablet ORAL *Reorder from [employer] for eRx and Interaction Alerts* 07/23/2023 Active Methocarbamol 750 MG Oral Tablet ORAL *Reorder from [employer] for eRx and Interaction Alerts* 07/23/2023 Not-Taking [...] Risk Notes Problem Malignant neoplasm of prostate (536572423) Malignant neoplasm of prostate (C61) Active confirmed Problem Malignant tumor of ureter (662339148) 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 Problem Diabetic renal disease (472120349) Type 2 diabetes mellitus with diabetic chronic kidney disease (E11.22) Active confirmed Problem Chronic obstructive pyelonephritis (576715513) 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 Problem Chronic kidney disease (275901078) Chronic kidney disease, unspecified (N18.9) Active confirmed Problem Disorder of urinary bladder (70520305) Other specified disorders of bladder (N32.89) Active confirmed Problem Disorder of urinary bladder (38631393) Bladder disorder, unspecified (N32.9) Active confirmed Problem Hallucinations (6759026) Hallucinations, unspecified (R44.3) Active confirmed Problem History of malignant neoplasm of prostate (487973582) Personal history of malignant neoplasm of prostate (Z85.46) Active confirmed Problem Urostomy present (933901076) Other artificial openings of urinary tract status (Z93.6) Active confirmed Problem Urogenital implant (462016229) Presence of urogenital implants (Z96.0) Active confirmed Problem Altered mental status (167914492) Altered mental status, unspecified altered mental status type (R41.82) Active confirmed Problem Discitis of lumbar region () 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) Active confirmed Problem History of malignant neoplasm of prostate (870766829) Personal history of prostate cancer (Z85.46) Active confirmed Problem History of radiation therapy (012271073) History of radiation therapy (Z92.3) Active confirmed Problem Pressure injury of coccygeal region, 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 Problem Nephrostomy (02454681) Nephrostomy status (Z93.6) Active confirmed Problem Chronic kidney disease stage 3 (disorder) (826740117) Chronic kidney disease, stage 3 unspecified (N18.30) Active confirmed Problem History of external beam radiation therapy (99729978608570) History of external beam radiation therapy (Z92.3) Active confirmed Problem Lumbar discitis () 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) Active confirmed Problem Ureteral stent present (Z96.0) Active confirmed Problem Obstructive pyelonephritis (7678189536257) Obstructive pyelonephritis (N11.1) Active confirmed Problem Nephrostomy present (17349545376555) Nephrostomy present (Z93.6) Active confirmed Vital Signs [...] 09/14/2025 Encounters Encounter Location Date Provider Diagnosis [facility] [address] [place] [id number] 02/01/2025 John Leyvay Pyelonephritis N12 ; Unspecified Escherichia coli [E. 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 ; Hydronephrosis, unspecified hydronephrosis type N13.30 ; Ureteral stent present Z96.0 ; Intractable pain R52 and Nephrostomy status Z93.6 [facility] [address] [place] [address], [place] [address] 09/14/2025 Nury Mark Nephrostomy status Z93.6 ; Pressure injury of coccygeal region, stage 3 L89.153 ; Type 2 diabetes mellitus with 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 ; Obstructive pyelonephritis N11.1 and Chronic kidney disease, stage 3 unspecified N18.30 [facility] [address] [place] [address], [place] [address] 08/15/2025 Nury Canaan Nephrostomy status Z93.6 ; Type 2 diabetes mellitus with 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 ; Obstructive pyelonephritis N11.1 and Chronic kidney disease, stage 3 unspecified N18.30 [facility] [address] [place] [address] Dr Berry [address] [place] [address], [place] [address] 07/24/2025 Ila Purdy-Kline Nephrostomy status Z93.6 ; Pyelonephritis N12 ; 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 ; Personal history of malignant neoplasm of prostate Z85.46 and History of radiation therapy Z92.3 [facility] [address] [place] [address] Dr Berry [address] [place] [address], [place] [address] 03/31/2025 lIa Banguraon-Kline Nephrostomy status Z93.6 ; Hydronephrosis, unspecified hydronephrosis type N13.30 ; Personal history of malignant neoplasm of prostate Z85.46 ; History of external beam radiation therapy Z92.3 and 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 [facility] [address] [place] [address] Dr Berry [address] [place] [address], [place] [address] 12/20/2024 Frankie Hendrix Bilateral hydronephrosis N13.30 ; Personal history of prostate cancer Z85.46 ; Bladder disorder N32.9 ; Other abnormal findings in urine R82.998 and Unspecified abnormal findings in urine R82.90 [facility] [address] [place] [address], [place] [address] 07/03/2025 Nury Canaan Nephrostomy status Z93.6 ; Type 2 diabetes mellitus with 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 and Obstructive pyelonephritis N11.1 [facility] [address] [place] [address], [place] [address] 01/25/2025 Nury Mark Pyelonephritis N12 ; Unspecified Escherichia coli [E. 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 ; Hydronephrosis, unspecified hydronephrosis type N13.30 ; Ureteral stent present Z96.0 ; Intractable pain R52 and Nephrostomy status Z93.6 [facility] [address] [place] [address], [place] [address] 07/17/2025 John Man Nephrostomy status Z93.6 ; Type 2 diabetes mellitus with 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 and Obstructive pyelonephritis N11.1 [facility] [address] [place] [address], [place] [address] 12/20/2024 Nury Canaan Pyelonephritis N12 ; Unspecified Escherichia coli [E. 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 ; Hydronephrosis, unspecified hydronephrosis type N13.30 ; Ureteral stent present Z96.0 ; Intractable pain R52 and Nephrostomy status Z93.6 [facility] [address] [place] [address] Dr Berry [address] [place] [address] 06/27/2025 Frankie Jacksay [facility] [address] [place] [address] Dr Berry [address] [place] [address], [place] [address] 05/05/2025 Frankie Jacksay [facility] [address] [place] [address] Dr Berry [address] [place] [address] 04/10/2025 Frankie Jacksay [facility] [address] [place] [address] Dr Berry [address] [place] [address] 03/31/2025 Frnakie Hendrix Malignant neoplasm o f right ureter C66.1 ; Nephrostomy status Z93.6 and Ureteral stent present Z96.0 [facility] [address] [place] [address] Dr Berry [address] [place] [address] 03/22/2025 [facility] [address] [place] [address] 03/21/2025 [facility] [address] [place] [address] 01/09/2025 N[facility] [address] [place] [address] 12/22/2024 [facility] [address] [place] [address] 12/21/2024 [facility] [address] [place] [address] 12/20/2024 [facility] [address] [place] [address] 12/20/2024 Frankie Hendrix Other abnormal findings in urine R82.998 [facility] [address] [place] [address] 12/20/2024 [facility] [address] [place] [address] 12/19/2024 [facility] [address] [place] [address] 12/07/2024 [facility] [address] [place] [address] 12/02/2024 [facility] [address] [place] [address] 10/14/2024 [facility] [address] [place] [address] 09/14/2025 Nury [facility] [address] [place] [address] 08/16/2025 [facility] [address] [place] [address] 08/15/2025 Nury [facility] [address] [place] [address] 08/10/2025 [facility] [address] [place] [address] 08/10/2025 [facility] [address] [place] [address] 08/03/2025 [facility] [address] [place] [address] 08/02/2025 Frankie Jacksay [facility] [address] [place] [address] 07/24/2025 Frankie Hendrix Ureteral stent prese nt Z96.0 and Malignant neoplasm of prostate C61 [facility] [address] [place] [address] 07/24/2025 Ila MccormickKline [facility] [address] [place] [address] 07/20/2025 Frankie Jacksay [facility] [address] [place] [address] 06/28/2025 [facility] [address] [place] [address] 06/28/2025 Frankie Hendrix Assessments Encounter Date Diagnosis (ICD Code) Assessment Notes Treatment Notes Treatment Clinical Notes Section Notes 12/20/2024 Bilateral hydronephrosis (ICD-10 - N13.30) 12/20/2024 Personal history of prostate cancer (ICD-10 - Z85.46) 07/03/2025 Type 2 diabetes mellitus with diabetic [...] Z93.6) NEEDS NEPHROSTOMY TUBE CHANGE IN EARLY 07/24/2025 Pyelonephritis (ICD-10 - N12) 07/24/2025 Ureteral stent present (ICD-10 - Z96.0) 03/31/2025 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 [facility] for [...] pneumonia, UM WBC 286 08-08-25 W 14.0 [place] LAYER 1.12 08-09-25 W 12.7 [place] LAYER 1.08 08-10-25 W 11.7 [place] LAYER 1.[address] [facility] for continued care of chronic kidney disease Follow up; in 4 weeks 12/20/2024 Other abnormal findings in urine (ICD-10 - R82.998) 07/17/2025 Type 2 diabetes mellitus with diabetic [...] WBC U 12 Follow up; Maria Alejandra Mckenna [facility] 07/17/2025 Nephrostomy status (ICD-10 - Z93.6) 1. [...] WBC U 12 Follow up; Maria Alejandra Mckenna [facility] 09/14/2025 Pressure injury of coccygeal region, stage [...] pneumonia, UM WBC 286 08-08-25 W 14.0 [place] LAYER 1.12 08-09-25 W 12.7 [place]AYER 1.08 08-10-25 W 11. [place] R[place] LAYER 1.13 09-14-25; Check CBC, CMP, CRP in office [facility] for continued care of chronic kidney [...] pneumonia, [facility] WBC 286 08-08-25 W 14.0 [place] LAYER 1.12 08-09-25 W 12.7 [place]AYER 1.08 08-10-25 W 11.7 [place]AYER 1.13 09-14-25; Check CBC, CMP, CRP in office [facility] for continued care of chronic kidney disease Follow up; in 4 weeks 02/01/2025 Pyelonephritis (ICD-10 - N12) 1. 75 [...] (start date 02-01-25) Labs 01-25-25 W 10.3, Planner Intern .77, CRP .83 Follow up; 1 month Maria Alejandra Degroot 01/25/2025 Pyelonephritis (ICD-10 - N12) 1. 75 [...] house today follow-up in 1 week 12/20/2024 Unspecified Escherichia coli [E. coli] as the cause of diseases classified elsewhere (ICD-10 - B96.20) 1. R ureter obstruction, severe hydronephrosis, chronic contracted bladder - s/p Right ureteral stent exchange on March 08, 2024. - to be seen this week at [facility] for ileal conduit and urinary diversion 2. Last seen here in clinic April 2024 Patient recently released from [facility], no medical records to review, per patient and daughter UTI sepsis and back infection I will request records 3. Nephrostomy tubes in place bilaterally, seen by Dr. Hendrix today Per patient report seen by [facility], not stable for ileal conduit surgery [...] to be seen this week at [facility] for ileal conduit and urinary diversion 2. Last seen here in clinic April 2024 Patient recently released from [facility], no medical records to review, per patient and daughter UTI sepsis and back infection I will request records 3. Nephrostomy tubes in place bilaterally, seen by Dr. Hendrix today Per patient report seen by [facility], not stable for ileal conduit surgery at this time 4. 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 R ureter obstruction, severe hydronephrosis, chronic contracted bladder - s/p Right ureteral stent exchange on March 08, 2024. - to be seen this week at [facility] for ileal conduit and urinary diversion 2. Last seen here in clinic April 2024 Patient recently released from [facility], no medical records to review, per patient and daughter UTI sepsis and back infection I will request records 3. Nephrostomy tubes in place bilaterally, seen by Dr. Ruma today Per patient report seen by Salma Goff, not stable for ileal conduit surgery at this time 4. Intractable back pain abdominal pain hip pain, will refer patient to the emergency room for evaluation He will need close follow-up in the clinic 01/25/2025 Unspecified Escherichia coli [E. coli] as [...] in house today follow-up in 1 week 07/17/2025 Obstructive pyelonephritis (ICD-10 - N11.1) 1. [...] Neg, [facility] WBC U 12 [facility] Unspecified Escherichia coli [E. coli] as [...] (start date 02-01-25) Labs 01-25-25 W 10.3, Planner Intern .77, CRP .83 [facility]14[facility] Type 2 diabetes mellitus with diabetic [...] pneumonia, UM WBC 286 08-08-25 W 14.0 [place] LAYER 1.12 08-09-25 W 12.7 [place] LAYER 1.08 08-10-25 W 11.7 [place] LAYER 1.13 09-14-25; Check CBC, CMP, CRP in office [facility] for continued care of chronic kidney disease Follow up; in 4 weeks 03/31/2025 Personal history of malignant neoplasm of prostate (ICD-10 - Z85.46) EBRT IN THE PAST, HAS CAUSED ISSUES WITH BLADDER 08/15/2025 Obstructive pyelonephritis (ICD-10 - N11.1) 1. [...] pneumonia, UM WBC 286 08-08-25 W 14.0 [place] R[place] LAYER 1.12 08-09-25 W 12.7 [place] LAYER 1.08 08-10-25 W 11.7 SHE[place] LAYER 1.[address] [facility] for continued care of chronic kidney disease Follow up; in 4 weeks 07/24/2025 Malignant neoplasm of prostate (ICD-10 - C61) 03/31/2025 Nephrostomy status (ICD-10 - Z93.6) 07/03/2025 Obstructive pyelonephritis (ICD-10 - N11.1) 1. [...] with Dr. 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 [facility] for [...] (start date 02-01-25) Labs 01-25-25 W 10.3, Planner Intern .77, CRP .83 Follow up; 1 month [...] in house today follow-up in 1 week 09/14/2025 Obstructive pyelonephritis (ICD-10 - N11.1) 1. [...] pneumonia, UM WBC 286 08-08-25 W 14.0 [place] LAYER 1.12 08-09-25 W 12.7 [place] LAYER 1.08 08-10-25 W 11.7 [place] LAYER 1.13 09-14-25; Check CBC, CMP, CRP in office [facility] for continued care of chronic kidney disease Follow up; in 4 weeks 12/20/2024 Hydronephrosis, unspecified hydronephrosis type (ICD-10 - N13.30) 1. R ureter obstruction, severe hydronephrosis, chronic contracted bladder - s/p Right ureteral stent exchange on March 08, 2024. - to be seen this week at [facility] for ileal conduit and urinary diversion 2. Last seen here in clinic April 2024 Patient recently released from [facility], no medical records to review, per patient and daughter UTI sepsis and back infection I will request records 3. Nephrostomy tubes in place bilaterally, seen by Dr. Hendrix today Per patient report seen by [facility], not stable for ileal conduit surgery at this time 4. Intractable back pain abdominal pain hip pain, will refer patient to the emergency room for evaluation He will need close follow-up in the clinic 12/20/2024 Ureteral stent present (ICD-10 - Z96.0) 1. R ureter obstruction, severe hydronephrosis, chronic contracted bladder - s/p Right ureteral stent exchange on March 08, 2024. - to be seen this week at [facility] for ileal conduit and urinary diversion 2. Last seen here in clinic April 2024 Patient recently released from [facility], no medical records to review, per patient and daughter UTI sepsis and back infection I will request records 3. Nephrostomy tubes in place bilaterally, seen by Dr. Hendrix today Per patient report seen by [facility], not stable for ileal conduit surgery [...] He had placement of nephrostomy tube 03-09-24- 3-; Exchange of bilateral percutaneous nephrostomy tubes [...] in house today follow-up in 1 week 09/14/2025 Chronic kidney disease, stage 3 unspecified [...] pneumonia, UM WBC 286 08-08-25 W 14.0 [place] LAYER 1.12 08-09-25 W 12.7 [place] LAYER 1.08 08-10-25 W 11.7 [place] LAYER 1.13 09-14-25; Check CBC, CMP, CRP in office [facility] for continued care of chronic kidney disease Follow up; in 4 weeks 02/01/2025 Hydronephrosis, unspecified hydronephrosis type (ICD-10 - [...] (start date 02-01-25) Labs 01-25-25 W 10.3, Planner Intern .77, CRP .83 Follow up; 1 month Maria Alejandra Degroot 07/24/2025 History of radiation therapy (ICD-10 - Z92.3) 03/31/2025 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 R ureter obstruction, severe hydronephrosis, chronic contracted bladder - s/p Right ureteral stent exchange on March 08, 2024. - to be seen this week at [facility] for ileal conduit and urinary diversion 2. Last seen here in clinic April 2024 Patient recently released from [facility], no medical records to review, per patient and daughter UTI sepsis and back infection I will request records 3. Nephrostomy tubes in place bilaterally, seen by Dr. Hendrix today Per patient report seen by [facility], not stable for ileal conduit surgery [...] to be seen this week at [facility] for ileal conduit and urinary diversion 2. Last seen here in clinic April 2024 Patient recently released from [facility], no medical records to review, per patient and daughter UTI sepsis and back infection I will request records 3. Nephrostomy tubes in place bilaterally, seen by Dr. Hendrix today Per patient report seen by [facility], not stable for ileal conduit surgery at this time 4. Intractable back pain abdominal pain hip pain, will refer patient to the emergency room for evaluation He will need close follow-up in the clinic 02/01/2025 Intractable pain (ICD-10 - R52) 1. [...] (start date 02-01-25) Labs 01-25-25 W 10.3, Planner Intern .77, CRP .83 Follow up; 1 month [...] (start date 02-01-25) Labs 01-25-25 W 10.3, Planner Intern .77, CRP .83 Follow up; 1 month [...] Discitis 6 weeks IV - duration complicated mraci UTI 3 weeks 6. U WBC down now to 375 in patient, an indication of therapeutic effectiveness Nursing facility records reviewed, medication list reviewed and reconciled Check labs in house today follow-up in 1 week 12/20/2024 Other Schedule bilateral percutaneous nephrostomy tube exchange with interventional radiology at [facility]. These will need to be changed every 3 months. cbc, bmp, PSA now. It may have been at the retirement today. Please obtain and if it is that is fine. follow up 3 months with nurse pracdtitioner. Cutlure urine from each PCNL. 12/20/[address] Man, referring patient to the emergency room for intractable pain evaluation No medical records from [facility] to review 1. R ureter obstruction, severe hydronephrosis, chronic contracted bladder - s/p Right ureteral stent exchange on March 08, 2024. - to be seen this week at [facility] for ileal conduit and urinary diversion 2. Last seen here in clinic April 2024 Patient recently released from [facility], no medical records to review, per patient and daughter UTI sepsis and back infection I will request records 3. Nephrostomy tubes in place bilaterally, seen by Dr. Hendrix today Per patient report seen by [facility], not stable for ileal conduit surgery at this time 4. Intractable back pain abdominal pain hip pain, will refer patient to the emergency room for evaluation He will need close follow-up in the clinic 03/31/2025 Other FOLLOW UP IN 3 MONTHS UA, CT ABDOMEN NO CONTRAST, CBC, CMP - IMAGING MUST BE DONE AT [facility], [facility] SEND ORDER FOR NEPHROSTOMY TUBE EXCHANGE OUTPATIENT [...] CMP, RANJANA ALL COMPLETED AT [facility] - NO LABS OR IMAGING TO BE COMPLETED AT [facility], THEY WILL NOT BE ACCEPTED FOLLOW UP [...] pneumonia, UM WBC 286 08-08-25 W 14.0 [place] LAYER 1.12 08-09-25 W 12.7 [place] LAYER 1.08 08-10-25 W 11.7 [place] LAYER 1.[address] [facility] for [...] pneumonia, UM WBC 286 08-08-25 W 14.0 [place] LAYER 1.12 08-09-25 W 12.7 [place] LAYER 1.08 08-10-25 W 11.7 [place] LAYER 1.13 09-14-25; Check CBC, CMP, CRP in office [facility] for continued care of chronic kidney disease Follow up; in 4 weeks Plan Of Treatment Pending Test Test Name Order Date Culture Urine [id number] 06/11/2025 PSA Diagnostic--[id number] 05/26/2024 MRI Pelvis w/ + w/o Cont-[id number] Future Test Test Name Order Date CBC w\ Auto Diff [id number] 06/05/2025 Comprehensive Metabolic Panel (CMP) 8005 3 06/05/2025 CT Abdomen w/o Contrast-[id number] 06/05/2025 CBC w\ Auto Diff [id number] 10/05/2025 Comprehensive Metabolic Panel (CMP) 8005 3 10/05/2025 PSA Diagnostic--[id number] 10/05/2025 US Renal w/bladder-[id number] 10/05/2025 Next Appt Details Provider Name:Nury andrews, 10/19/2025 01:15:00 PM, [address] [place] [address], [place], [address], Provider Name:Ila Godwin, 10/24/2025 01:00:00 PM, [address], [place], [address], Insurance Providers Payer Name Payer Address Payer Phone Subscriber Number Group Number Insured Name Patient Relationship to Insured Coverage Start Date Coverage End Date [employer] [address] [place] [phone] [id number] Aki Deal Self - patient is the insured Out of Network [facility] Medicare Replacement [address] [address] [place] [address] [id number] Aki Deal Self - patient is the [...]
[2025-09-21 11:27] LABS: Digoxin 0.9 ng/mL (0.6-1.2)
--- OUTSIDE RECORDS SUMMARY | 2025-09-21 11:27 | XMS_ITS | Encounter Summary ---
Author Organization [facility] Address [address] [place] [address] Phone Care Team Providers Care Diaphragm Builder Name Role Phone Trisha Urena MD Primary Care Provider [phone] Encounter Details Date Type Department Care Team (Late st Contact Info) Description 02/19/2023 Orders Only [facility] [address] [place] [address] Chronic kidney disease, not otherwise [...] specified documented in this encounter Care Teams Diaphragm Builder Relationship Specialty Start Date End Date Trisha Urena MD [address] [place] [address] PCP - General Family Medicine 05/20/23 documented as of this encounter
--- OUTSIDE RECORDS SUMMARY | 2025-09-21 11:27 | XMS_ITS | Continuity of Care Document ---
Author Organization [facility] Tejinder, Kayla, [facility] ([facility]) Address [address] [place] [address] Assessment No assessment recorded. Plan of Treatment [...] By Organization Details Last Modified Time 08/14/2025 [id number] Admitted with [facility] I transferred to [place] for possible nephrostomy change, but limited records. will check labs and staff to track down records. [email or web address] Not available 08/14/2025 15:47:46 Reason for Referral None Reported. Problems Name Problem SNOMED Code Status Onset Date Resolution Date Notes Provider Name and Address Organization Details Recorded Time Hospital inpatient stay within past 30 days 8769185699107 Active [address] [facility] 12:[facility]24 Spinal stenosis of lumbar region 93950012 [facility] [address] [facility] 12:23:25 Atrial fibrillati on 25793518 Active [address] 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 [facility] 12:23:27 Neurogenic urinary bladder 168810941 Active 2022 [facility], [facility] 3 12:23:29 Essential hypertensi on 24736173 Active 2022 [facility], [facility] 3 12:23:30 Difficulty sleeping 083526207 Active 2022 [facility], [facility] 3 10:14:44 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 5244500 Active 2022 [facility], [facility] 3 12:10:22 Uncontroll ed type 2 diabetes mellitus 218025667 Active 2022 [facility], [facility] 3 12:10:23 Acute urinary tract infection 645292779 Active 2022 [facility], [facility] 3 12:10:26 Sepsis 94601780 Active 2022 [facility] 3 15:15:01 Metabolic encephalop athy 10202368 Active 2022 [facility], [facility] 3 15:15:02 Pneumonia 602049750 Active 2022 [facility], [facility] 3 15:15:02 Acute pyelonephr itis 71684444 Active 2022 [facility], [facility] 3 15:15:04 Anemia due to blood loss 018590457 Active 2022 [facility], [facility] 3 15:15:06 Need for personal care assistance 7140775097494 9106 [facility] 13:09:05 Chronic pain 97780785 [facility] 15:47:08 Osteomyeli tis 17646901 [facility] 12:18:14 Lumbar discitis 667942386 [facility] 12:18:29 Urinary tract infectious disease 44860940 [facility] 15:46:49 Problem Notes None recorded. Medical Equipment None Reported. Allergies Allergen ID Allergen Name Allergen Category Reaction Reaction Severity Criticality Documentation Date Start Date Code Code System Note Provider Name and Address Organization Details Recorded Time 52071 [employer] environme nt,medica tion Not available Not available Not available 09/19/20252024 30519 6 RxNorm Not Available [place] - External Data Service - prod 5 [...] sent to pharmacy . *dose increase *; 19975; Recorded 01/22/20 22 12:43PM by Jackeline Todd [...] Updated DateTime 5 172.72 cm 26.6 kg/m2 40363.6 6 g 63 /min 20 /min 97.8 [degF] 96 % 115/79 mm[Hg] [facility], [facility] 5 15:45:05 Social History None recorded. Functional Status None recorded. Mental Status None recorded. Family History Nothing Reported. Medical History No medical history recorded. Immunizations Vaccine Type Date Status Note Provider Nam e and Address Organization Details Recorded Time zoster live 9 completed Not Available [facility] 09/19/2025 09:07:45 pneumococcal polysaccharide PPV23 1 completed Not Available [facility] 09/19/2025 09:07:45 pneumococcal polysaccharide PPV23 4 completed Not Available [facility] 09/19/2025 09:07:45 Tdap 4 completed Not Available [facility] 09/19/2025 09:07:45 Pneumococcal conjugate PCV 13 5 completed Not Available [facility] 09/19/2025 09:07:45 pneumococcal polysaccharide PPV23 6 completed Not Available [facility] 09/19/2025 09:07:45 Tdap 2 completed Not Available [facility] 09/19/2025 09:07:45 zoster recombinant 2 completed Not Available [facility] 09/19/2025 09:07:45 zoster recombinant 3 completed Not Available [facility] 09/19/2025 09:07:45 Influenza, split virus, quadrivalent, PF 3 completed Not Available [facility] 09/19/2025 09:07:45 Influenza, split virus, trivalent, preservative 0 completed Not Available [facility] 05/02/2023 02:33:15 Past Encounters Encounter ID Performer Location Encounter Start Date Encounter Closed Date Diagnosis/Indication Diagnosis SNOMED-CT Code Diagnosis ICD10 Code Diagnosis IMO Codes Diagnosis Note [id number] Vinnie Garcia DO [facility] (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 Vinnie Garcia DO [address] [place], [address], [facility] 08/16/2025 14:54:05
--- OUTSIDE RECORDS SUMMARY | 2025-09-21 11:27 | XMS_ITS | CCD ---
Author Name Interface, [id number] lity Address [address], [facility] [place] [address] Organization [facility] Address [facility], [facility] [place] [address] Reason for Visit Social History Date Name Value 04/12/2025 Sex Male
--- OUTSIDE RECORDS SUMMARY | 2025-09-21 11:28 | XMS_ITS | Data Portability ---
Author Organization [facility] Kayla Marr, [facility] Address [address] [place] [address] [place] [address] Assessment No assessment recorded. Plan of Treatment [...] By Organization Details Last Modified Time 06/22/2025 [id number] patient evaluate d in ER as PICC line was occluded. Replaced and working properly now. [email or web address] Not available 06/28/2025 12:25:11 07/10/2025 [id number] Pain worse over the weekend, but improved now. Staff to monitor. [email or web address] Not available 07/10/2025 14:39:50 08/14/2025 [id number] Admitted with [facility] transferred to [facility] for possible nephrostomy change, but limited records. will check labs and staff to track down records. [email or web address] Not available 08/14/2025 15:47:46 09/11/2025 [id number] Stomach upset. Will d/c metformin. Increase norco to QID prn. Start colace daily. Not available 09/13/2025 17:15:20 Reason for Referral None Reported. Problems Name Problem SNOMED Code Status Onset Date Resolution Date Notes Provider Name and Address Organization Details Recorded Time Hospital inpatient stay within past 30 days 4745631032251 Active 2022 [place] [place], [place] [facility] 12:23:24 Spinal stenosis of lumbar region 13219223 Active 2022 [facility] 3 12:23:25 Atrial fibrillati on 40157810 Active 2022 [facility], [facility] 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 3 12:23:27 Neurogenic urinary bladder 649579255 Active 2022 [facility], [facility] 3 12:23:29 Essential hypertensi on 63393257 Active 2022 [facility], [facility] 3 12:23:30 Difficulty sleeping 293538697 Active 2022 [facility], [facility] 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 3 12:10:22 Uncontroll ed type 2 diabetes mellitus 509244807 Active 2022 [facility], [facility] 3 12:10:23 Acute urinary tract infection 125488035 Active 2022 [facility], [facility] 3 12:10:26 Sepsis 17351995 Active 2022 [facility], [facility] 3 15:15:01 Metabolic encephalop athy 60388834 Active 2022 EVENS TODD [facility] 3 15:15:02 Pneumonia 975120767 Active 2022 VE[facility] birch, [facility] 3 15:15:02 Acute pyelonephr itis 22451685 Active 2022 EVENS birch, [facility] 3 15:15:04 Anemia due to blood loss 092643774 Active 2022 EVENS birch, [facility] 3 15:15:06 Need for personal care assistance 5100578943286 9106 Active 2023 EVENS birch, [facility] 4 13:09:05 Chronic pain 82430822 Active 2023 [facility], [facility] 4 15:47:08 Osteomyeli tis 05106231 Active 2023 [facility], [facility] 4 12:18:14 Lumbar discitis 736391154 [facility] 12:18:29 Urinary tract infectious disease 46950980 [facility] 15:46:49 Problem Notes None recorded. Medical Equipment None Reported. Allergies Allergen ID Allergen Name Allergen Category Reaction Reaction Severity Criticality Documentation Date Start Date Code Code System Note Provider Name and Address Organization Details Recorded Time 34459 PO[employer] environme nt,medica tion Not available Not available Not available 09/19/20252024 57302 6 RxNorm Not Available francisco - External [...] sent to pharmacy . *dose increase *; 66403; Recorded 01/22/20 12:43PM by Jackeline Todd RN (Authori zed [...] Recorded 01/22/20 22 8:07AM by Jackeline Todd, SHELLY, Office Visit; Not Available Not [...] Updated DateTime 5 172.72 cm 26.6 kg/m2 56665.6 6 g 77 /min 16 /min 98 [degF] 97 % 132/66 mm[Hg] [facility] 5 12:44:14 Date Recorded Body height Body mass index (BMI) Body weight Heart rate Respiratory rate Body temperature Oxygen saturation Systolic And Diastolic Provider Name and Address Organization Details Last Updated DateTime 5 172.72 cm 26.8 kg/m2 46720.2 6 g 73 /min 20 /min 98.3 [degF] 99 % 134/75 mm[Hg] [facility] 5 14:37:45 Date Recorded Body height Body mass index (BMI) Body weight Heart rate Respiratory rate Body temperature Oxygen saturation Systolic And Diastolic Provider Name and Address Organization Details Last Updated DateTime 5 172.72 cm 26.6 kg/m2 52814.6 6 g 63 /min 20 /min 97.8 [degF] 96 % 115/79 mm[Hg] [facility] 5 15:45:05 Date Recorded Body height Body mass index (BMI) Body weight Heart rate Respiratory rate Body temperature Oxygen saturation Systolic And Diastolic Provider Name and Address Organization Details Last Updated DateTime 5 172.72 cm 26.2 kg/m2 55818.8 9 g 76 /min 12 /min 97.9 [degF] 97 % 104/58 mm[Hg] [facility] 5 10:26:59 Social History None recorded. Functional Status None recorded. Mental Status None recorded. Family History Nothing Reported. Medical History No medical history recorded. Immunizations Vaccine Type Date Status Note Provider Nam e and Address Organization Details Recorded Time zoster live 9 completed Not Available [facility] 09/19/2025 09:07:45 pneumococcal polysaccharide PPV23 1 completed Not Available [facility] 09/19/2025 09:07:45 pneumococcal polysaccharide PPV23 4 completed Not Available [facility] 09/19/2025 09:07:45 Tdap 4 completed Not Available [facility] 09/19/2025 09:07:45 Pneumococcal conjugate PCV 13 5 completed Not Available [facility] 09/19/2025 09:07:45 pneumococcal polysaccharide PPV23 6 completed Not Available [facility] 09/19/2025 09:07:45 Tdap 2 completed Not Available [facility] 09/19/2025 09:07:45 zoster recombinant 2 completed Not Available [facility] 09/19/2025 09:07:45 zoster recombinant 3 completed Not Available [facility] 09/19/2025 09:07:45 Influenza, split virus, quadrivalent, PF 3 completed Not Available [facility] 09/19/2025 09:07:45 Influenza, split virus, trivalent, preservative 0 completed Not Available [facility] 05/02/2023 02:33:15 Past Encounters Encounter ID Performer Location Encounter Start Date Encounter Closed Date Diagnosis/Indication Diagnosis SNOMED-CT Code Diagnosis ICD10 Code Diagnosis IMO Codes Diagnosis Note [id number] Vinnie Garcia DO [facility] ([facility]) [address] [place] [address] 80182-521 5 05/28/2023 12:14:45 05/28/2023 12:32:08 Hospital inpatient stay within past 30 days [id number] 106 Z76.89 Spinal marga nosis of lumbar region 24210152 M48.062 Atrial fibrillation 4943 6004 I48.91 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 1115989096 24992 E11.65 Neurogenic urinary bladder 695749475 N31.9 Essential hypertension 69528708 I10 [id number] Vinnie Garcia DO [facility] ([facility]) [address] [place] [address] 32829-832 5 06/04/2023 09:49:04 06/14/2023 17:41:25 Difficulty sleeping 731563156 Z72.193 [id number] Vinnie Garcia DO [facility] ([facility]) [address] [place] [address] 88601-659 5 06/23/2023 08:28:47 06/25/2023 15:01:57 Spinal stenosis of lumbar region 23011986 M48.062 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 4280461573 16213 E11.65 Atrial fibrillation 4943 6004 I48.91 Neurogenic urinary bladder 219974965 N31.9 [id number] Vinnie Garcia DO [facility] ([facility] [address] [place] [address] 18014-601 5 07/21/2023 09:10:19 08/02/2023 19:30:15 Hospital inpatient stay within past 30 days [id number] 106 Z76.89 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 4082444 I11.0 Uncontroll ed type 2 diabetes mellitus 836920783 E11.65 Atrial fibrillation 4943 6004 I48.91 Acute urin viola tract infection 832778731 N39.0 [id number] Vinnie Garcia DO [facility] [address] [place] [address] 09474-509 5 08/04/2023 13:51:30 08/05/2023 08:38:35 Spinal stenosis of lumbar region 49894114 M48.062 Difficulty sleeping 3013 51482 Z72.512 [id number] DO AWILDA Flores ([facility]) [address] [place] [address] 58517-791 5 08/11/2023 08:12:12 08/17/2023 15:36:55 Hospital inpatient stay within past 30 days 9049877303 106 Z76.89 Sepsis 33578735 A41.9 Metabolic encephalopathy 01751262 G93.41 Pneumonia 050858106 J18. 9 Acute pyelonephritis 366 73039 N10 Anemia due to blood loss 150940581 D50.0 [id number] DO AWILDA Flores ([facility]) [address] [place] [address] 65716-487 5 08/13/2023 08:23:16 08/23/2023 20:29:11 Spinal stenosis of lumbar region 86411040 M48.062 Difficulty sleeping 3013 78989 Z72.820 Acute pyelonephritis 366 98132 N10 Atrial fibrillation 4943 6004 I48.91 [id number] DO AWILDA Flores ([facility]) [address] [place] [address] 13265-576 5 09/08/2023 08:20:56 09/11/2023 13:25:11 Spinal stenosis of lumbar region 31802263 M48.062 Neurogenic urinary bladder 909348495 N31.9 Atrial fibrillation 4943 6004 I48.91 Essential hypertension 61759090 I10 [id number] DO AWILDA Flores ([facility]) [address] [place] [address] 75534-462 5 09/22/2023 08:49:25 10/11/2023 20:20:29 Acute urinary tract infection 764272660 N39.0 [id number] Vinnie Garcia DO [facility] ([facility]) [address] [place] [address] 16865-538 5 10/13/2023 07:55:28 10/14/2023 09:02:24 [id number] Vinnie Garcia DO [facility] ([facility]) [address] [place] [address] 65211-860 5 10/20/2023 12:08:00 10/21/2023 14:19:12 Hospital inpatient stay within past 30 days 0855247264 106 Z76.89 Acute pyelonephritis 366 87939 N10 Essential hypertension 52138724 I10 Neurogenic urinary bladder 467590307 N31.9 Jose Luis hematuria 31219642 5 R31.0 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 6980836050 42388 E11.65 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 1416260 I11.0 Atrial fibrillation 4943 6004 I48.91 Need for [facility] assistance 1432625739 3108245 Z74.1 [id number] Vinnie Garcia DO [facility] ([facility]) [address] [place] [address] 70133-078 5 11/03/2023 08:40:18 11/17/2023 08:02:09 Spinal stenosis of lumbar region 65402454 M48.062 Difficulty sleeping 3013 75866 Z72.820 Atrial fibrillation 4943 6004 I48.91 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 8199403 I11.0 Metabolic encephalopathy 76090017 G93.41 [id number] DO AWILDA Flores ([facility]) [address] [place] [address] 15466-261 5 11/17/2023 08:11:46 11/23/2023 12:00:37 Acute urinary tract infection 865892727 N39.0 [id number] DO AWILDA Flores ([facility]) [address] [place] [address] 44541-632 5 12/22/2023 08:17:30 12/24/2023 10:58:55 Uncontrolled type 2 diabetes mellitus 437873245 E11.65 Atrial fibrillation 4943 6004 I48.91 [id number] DO AWILDA Flores ([facility]) [address] [place] [address] 09205-007 5 12/31/2023 08:25:54 12/31/2023 14:23:43 [id number] DO AWILDA Flores ([facility]) [address] [place] [address] 65190-694 5 01/12/2024 08:56:47 01/13/2024 10:08:49 [id number] DO AWILDA FloresC ([facility]) [address] [place] [address] 5 01/12/2024 11:36:10 01/14/2024 10:54:27 Need for personal care assistance 1559265496 7594204 Z74.1 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 2520950177 99965 E11.65 Atrial fibrillation 4943 6004 I48.91 Neurogenic urinary bladder 442613696 N31.9 [id number] Vinnie Garcia DO [facility] ([facility]) [address] [place] [address] 02/16/2024 08:06:58 02/17/2024 08:34:42 [id number] Vinnie Garcia DO [facility] ([facility]) [address] [place] [address] 05674-188 5 03/03/2024 14:43:36 03/08/2024 10:00:49 Hypertensive heart disease with congestive heart failure 5942088 I11.0 [id number] Vinnie Garcia DO [facility] ([facility]) [address] [place] [address] 50469-053 5 03/17/2024 09:35:21 03/21/2024 11:43:22 [id number] Vinnie Garcia DO [facility] ([facility]) [address] [place] [address] 14484-138 5 03/22/2024 13:32:15 08/17/2024 12:52:07 [id number] NATA JUAREZ PA-C [facility] ([facility]) [address] [place] [address] 26400-540 5 03/23/2024 12:47:26 04/10/2024 22:57:16 Sepsis 09165486 A41.9 etapenem and fluconazol e Acute urin viola tract infection 949557132 N39.0 hospital records reviewed and meds reconciled . pt is doing well. continue current meds and therapy [id number] Vinnie Garcia DO [facility] ([facility]) [address] [place] [address] 37010-751 5 03/29/2024 08:20:20 03/30/2024 08:39:55 [id number] Vinnie Garcia DO [facility] ([facility]) [address] [place] [address] 03/31/2024 11:01:06 03/31/2024 17:44:40 Hospital inpatient stay within past 30 days 1330578673 106 Z76.89 Metabolic encephalopathy 13659776 G93.41 Acute urin viola tract infection 646472827 N39.0 [id number] Vinnie Garcia DO [facility] ([facility]) [address] [place] [address] 67970-379 5 04/12/2024 08:14:54 04/12/2024 18:01:31 Hospital inpatient stay within past 30 days 9991766131 106 Z76.89 Acute pyelonephritis 366 26838 N10 Acute urin viola tract infection 398443598 N39.0 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 4372528 I11.0 [id number] Vinnie Garcia DO [facility] ([facility]) [address] [place] [address] 43715-346 5 04/26/2024 12:28:28 04/26/2024 15:48:19 Neurogenic urinary bladder 587069939 N31.9 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 4913944382 25619 E11.65 Atrial fibrillation 4943 6004 I48.91 Essential hypertension 34933871 I10 [id number] Vinnie Garcia DO [facility] ([facility]) [address] [place] [address] 73862-023 5 05/03/2024 08:14:45 05/04/2024 08:41:49 [id number] Vinnie Garcia DO [facility] ([facility]) [address] [place] [address] 34534-366 5 05/05/2024 08:27:21 05/05/2024 15:42:04 Hospital inpatient stay within past 30 days 1438894097 106 Z76.89 Osteomyelitis 93202056 M 86.9 Lumbar discitis 08801586 2 M46.46 Neurogenic urinary bladder 738989935 N31.9 [id number] Vinnie Garcia DO [facility] ([facility]) [address] [place] [address] 91151-968 5 05/17/2024 08:30:30 05/17/2024 15:38:29 Hyperglycemia due to type 2 diabetes mellitus 3262011334 71179 E11.65 Lumbar discitis 12883095 2 M46.46 Atrial fibrillation 4943 6004 I48.91 [id number] DO AWILDA Flores ([facility]) [address] [place], [place] [address] 05/24/2024 08:53:24 05/24/2024 17:01:30 Acute urinary tract infection 112119799 N39.0 Atrial fibrillation 4943 6004 I48.91 Chronic pain 59121412 G8 9.29 [id number] Vinnie Garcia DO [facility] ([facility]) [address] [place] [address] 5 05/31/2024 13:56:48 05/31/2024 16:31:26 Neurogenic urinary bladder 004528763 N31.9 [id number] Vinnie Garcia DO [facility] ([facility]) [address] [place] [address] 5 06/07/2024 12:03:54 06/07/2024 16:23:12 Lumbar discitis 675138702 M46.46 Difficulty sleeping 3013 54364 Z72.820 Atrial fibrillation 4943 6004 I48.91 [id number] Vinnie Garcia DO [facility] ([facility]) [address] [place], [place] [address] 5 06/16/2024 08:27:14 06/16/2024 16:12:57 Neurogenic urinary bladder 704642823 N31.9 [id number] Vinnie Garcia DO [facility] ([facility]) [address] [place], [place] [address] 5 06/30/2024 08:12:55 07/03/2024 13:51:10 [id number] Vinnie Garcia DO [facility] ([facility]) [address] [place], [place] [address] 5 11/21/2024 14:33:52 11/29/2024 07:36:51 Hospital inpatient stay within past 30 days 0371602244 106 Z76.89 Essential hypertension 63246744 I10 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 0718261538 55667 E11.65 [id number] Vinnie Garcia DO [facility] ([facility]) [address] [place] [address] 58061-448 5 12/05/2024 14:47:47 12/09/2024 07:25:39 Hospital inpatient stay within past 30 days 7972713193 106 Z76.89 Metabolic encephalopathy 38431754 G93.41 Acute kidney injury 1466 9001 N17.9 Acute urin viola tract infection 428774119 N39.0 Osteomyelitis 60498893 M 86.9 vertebral [id number] Vinnie Garcia [facility] ([facility]) [address] [place] [address] 82623-794 5 12/19/2024 14:48:31 12/21/2024 06:52:41 Flatulence, eructation and gas pain 489892719 R14.1 Abdominal pain 31171734 R10.9 [id number] Vinnie Garcia [facility] ([facility]) [address] [place] [address] 53633-909 5 12/29/2024 09:31:53 01/03/2025 07:10:38 Hospital inpatient stay within past 30 days 0815735350 106 Z76.89 Lumbar discitis 33823502 2 M46.46 Metabolic encephalopathy 89111360 G93.41 Uncontroll ed type 2 diabetes mellitus 391715443 E11.65 [id number] Vinnie Garcia [facility] ([facility]) [address] [place] [address] 65294-811 5 2025 12:25:55 02/14/2025 17:18:12 Chronic pain 12817203 G89.29 Generalize d abdominal pain 319057726 R10.84 584930 [id number] Vinnie Garcia [facility] ([facility]) [address] [place] [address] 00500-828 5 03/16/2025 11:01:51 03/27/2025 16:54:18 Spinal stenosis of lumbar region 48387330 M48.062 Lumbar discitis 16708921 2 M46.46 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 5521187441 94845 E11.65 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 0960194 I11.0 [id number] Vinnie Garcia [facility] ([facility]) [address] [place] [address] 04/10/2025 08:33:14 04/11/2025 10:29:30 Spinal stenosis of lumbar region 83637545 M48.062 Lumbar discitis 44249593 2 M46.46 Difficulty sleeping 3013 17161 Z72.277 [id number] Vinnie Garcia DO [facility] ([facility]) [address] [place] [address] 20122-597 5 05/29/2025 14:25:03 05/30/2025 09:20:22 Hyperglycemia due to type 2 diabetes mellitus 0196199378 52587 E11.65 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 2117532 I11.0 Essential hypertension 35785813 I10 Atrial fibrillation 4943 6004 I48.91 [id number] Vinnie Garcia DO [facility] ([facility]) [address] [place] [address] 30537-298 5 06/15/2025 12:16:39 06/20/2025 10:33:14 Hospital inpatient stay within past 30 days 4243933462 106 Z76.89 Acute urin viola tract infection 468102314 N39.0 448248 [id number] Vinnie Garcia DO [facility] ([facility]) [address] [place] [address] 95984-059 5 06/22/2025 09:39:44 06/28/2025 12:52:37 Spinal stenosis of lumbar region 05544765 M48.062 Atrial fibrillation 4943 6004 I48.91 Essential hypertension 72373154 I10 Displaceme nt of nephrostomy tube 030092244 T83.022A 177280 Blocked catheter 2355915 005 T82.898D 78502043 [id number] Vinnie Garcia DO [facility] ([facility]) [address] [place] [address] 45447-157 5 07/10/2025 14:20:27 07/11/2025 15:26:48 Lumbar discitis 704359086 M46.46 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 9319751068 30823 E11.65 Neurogenic urinary bladder 233923287 N31.9 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 4967118 I11.0 Atrial fibrillation 4943 6004 I48.91 [id number] Vinnie Garcia DO [facility] ([facility]) [address] [place] [address] 08/14/2025 13:22:40 08/17/2025 16:49:52 Hospital inpatient stay within past 30 days 7322545960 106 Z76.89 Urinary tr act infectious disease 27301685 N39.0 [id number] 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 1300601 I11.0 Essential hypertension 69743282 I10 Atrial fibrillation 4943 6004 I48.91 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 3171473256 69688 E11.65 [id number] Vinnie Garcia DO [facility] ([facility]) [address] [place] [address] 5 09/11/2025 14:18:21 09/14/2025 16:53:17 Spinal stenosis of lumbar region 83248305 M48.062 Lumbar discitis 99135817 2 M46.46 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 4895109785 37270 E11.65 Atrial fibrillation 4943 6004 I48.91 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 2792371 I11.0 Health Concerns Section Related Observation LastModified by Organization Detai ls LastModified Time None Recorded Concern Status LastModified by Organization Details LastModified Time None Recorded Advance Directives Directive None Recorded Payers Insurance Date Sequence Insurance Name Policy Number Policy Mueller Covered Member ID Mueller Member ID Guarantor Name 05/28/2023 1 *SELF PAY* Md domenico Deal 06/15/2025 [facility] Raphael Deal [id number] Raphael Deal 06/15/2025 1 [employer] (MEDICARE REPLACEMENT/ ADVANTAGE - PPO) Raphael Deal [id number] Raphael Deal Notes Date Note Type Note Provider Name and Address Organization Details Recorded Time 5 text/html HypertensionReported by PatientHPIFor severity, patient reportsgrade 1 (130-139/80-89). For duration, patient reportshas noted for years. For alleviating factors, patient reportsmedication.ROS as noted in the HPI ER follow up Vinnie Garcia DO [address] [place] [address], [phone], [facility] 06/28/2025 12:25:39 5 text/html HypertensionReported by PatientHPIFor severity, patient reportsgrade 1 (130-139/80-89). For duration, patient reportshas noted for years. For alleviating factors, patient reportsmedication.ROS as noted in the HPI no complains per staff, patient complains of worsening pain over the weekend. Vinnie GarciaDO [address] [place] [address], [phone], [facility] 07/10/2025 14:41:06 5 text/html HypertensionReported by PatientHPIFor severity, patient reportsgrade 1 (130-139/80-89). For duration, patient reportshas noted for years. For alleviating factors, patient reportsmedication.ROS as noted in the HPI re-admit to snf, after hospital stay for UTI. Vinnie GarciaDO [address] [place] [address], [phone], [facility] 08/16/2025 14:54:05 5 text/html HypertensionReported by PatientHPIFor severity, patient reportsgrade 1 (130-139/80-89). For duration, patient reportshas noted for years. For alleviating factors, patient reportsmedication.ROS as noted in the HPI c/o worsening. Vinnie GarciaDO [address] [place] [address], [phone], [facility] 09/13/2025 17:15:32
--- OUTSIDE RECORDS SUMMARY | 2025-09-21 11:28 | XMS_ITS | Clinical Summary ---
Author Organization [facility], [facility] Address [address] [place] [address] Phone Care Team Providers Care Deportation Examiner Name Role Phone Trisha Urena MD Primary Care Provider Allergies Active Allergy Reactions Criticality Noted Date [...] Department Care Team Description 09/14/2025 Transcribe Orders [facility] [address] [place] [address] Judy Sinha from Last 3 [...] Most Recently Relevant to Health Maintenance Insurance [facility] [employer] 1,2,3 ([employer]) Care Teams Deportation Examiner Relationship Specialty Start Date End Date Trisha Urena MD [address] [place] [address] PCP - General Family Medicine 05/20/23
--- OUTSIDE RECORDS SUMMARY | 2025-09-21 11:28 | XMS_ITS | Continuity of Care Document ---
Author Organization [employer] ([facility]) Address [address] [place] [address] Insurance Providers Payer Plan Claims Address Claims Phone Policy Number Group Number Relation Employer Guarantor Name Guarantor Guarantor Address Guarantor Phone MEDICA RE MEDIC ARE tel:[phone] [employer] RE [facility] [facility] [facility] MEDIC ARE [employer] [address] [address], [place] [address] tel:[phone] TRICAR E TRICA RE [address] [address] [id number] Problems Condition ICD9 code ICD10 code SNOMED code Start Date End Date S tatus Paroxysmal atrial fibrillation I48.0 05/27/2023 Active [facility] (current[facility] use of anticoagulants Z79.01 06/14/2024 Active [...] obstructive pulmonary disease, unspecified J44.9 06/02/2023 Active penitentiary (current) use 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 Z79.51 05/27/2023 [...] with diabetic neuropathy, unspecified E11.40 06/02/2023 Active penitentiary (current) use of insulin Z79.4 05/27/2023 Active penitentiary (current) use of oral hypoglycemic drugs Z79.84 [...] 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 11/18/2024 Active penitentiary (current) use of insulin Z79.4 11/18/2024 Active penitentiary (current) use of oral hypoglycemic drugs Z79.84 11/18/2024 Active Hypertensive heart and chronic kidney disease with heart failure and stage 1 through stage 4 chronic kidney disease, or unspecified chronic kidney disease I13.0 11/18/2024 Active Heart failure, unspecified I50.9 11/18/2024 Active Chronic kidney disease, stage 3 unspecified N18.30 11/18/2024 Activ e Chronic obstructive pulmonary disease, unspecified J44.9 11/18/2024 Active penitentiary (current) use 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 Z79.51 11/18/2024 [...] Active Anxiety disorder, unspecified F41.9 12/28/2024 Active penitentiary (current) use of antibiotics Z79.2 02/02/2025 Active Neuromuscular dysfunction of bladder, 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 04/14/2025 A ctive penitentiary (current) use of opiate analgesic Z79.891 03/16/2025 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.84 04/14/2025 Active Acute pyelonephritis N10 06/14/2025 Active Encounter for adjustment and management of vascular access device Z45.2 06/14/2025 Ac tive Pressure ulcer of sacral region, unstageable L89.150 06/26/2025 Activ e Muscle weakness (generalized) M62.81 07/26/2025 Active Abrasion of lower back and pelvis, subsequent encounter S30.810D 08/04/2025 Active Urinary tract infection, site not specified N39.0 08/10/2025 Active Nonrheumatic mitral (valve) insufficiency I34.0 08/10/2025 Act arsenio Nonrheumatic tricuspid (valve) insufficiency I36.1 08/10/2025 Act arsenio Pressure ulcer of sacral region, 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 Refere nce Range Blood chemistry[[id number]] Glucose [Mass/volume] in Serum or Plasma [2345-7] 09/21/2025 12:31 PM 200 mg/dL N Blood chemistry[[id number]] Glucose [Mass/volume] in Serum or Plasma [2345-7] 09/20/2025 01:39 PM 308 mg/dL N Blood chemistry[[id number]] Glucose [Mass/volume] in Serum or Plasma [2345-7] 09/20/2025 05:11 PM 248 mg/dL N Blood chemistry[[id number]] Glucose [Mass/volume] in Serum or Plasma [2345-7] 09/20/2025 09:35 AM 235 mg/dL N Blood chemistry[[id number]] Glucose [Mass/volume] in Serum or Plasma [2345-7] 09/20/2025 12:29 PM 262 mg/dL N Blood chemistry[[id number]] Glucose [Mass/volume] in Serum or Plasma [2345-7] 09/20/2025 06:01 PM 279 mg/dL N Blood chemistry[[id number]] Glucose [Mass/volume] in Serum or Plasma [2345-7] 09/19/2025 05:05 PM 343 mg/dL N Blood chemistry[[id number]] Glucose [Mass/volume] in Serum or Plasma [2345-7] 09/19/2025 10:05 AM 386 mg/dL N Blood chemistry[[id number]] Glucose [Mass/volume] in Serum or Plasma [2345-7] 09/19/2025 12:29 PM 346 mg/dL N Blood chemistry[[id number]] Glucose [Mass/volume] in Serum or Plasma [2345-7] 09/18/2025 01:53 PM 258 mg/dL N Blood chemistry[[id number]] Glucose [Mass/volume] in Serum or Plasma [2345-7] 09/18/2025 09:56 AM 160 mg/dL N Blood chemistry[[id number]] Glucose [Mass/volume] in Serum or Plasma [2345-7] 09/18/2025 05:25 PM 192 mg/dL N Blood chemistry[[id number]] Glucose [Mass/volume] in Serum or Plasma [2345-7] 09/18/2025 01:29 PM 146 mg/dL N Blood chemistry[[id number]] Glucose [Mass/volume] in Serum or Plasma [2345-7] 09/17/2025 05:38 PM 151 mg/dL N Blood chemistry[[id number]] Glucose [Mass/volume] in Serum or Plasma [2345-7] 09/17/2025 09:19 AM 175 mg/dL N Blood chemistry[[id number]] Glucose [Mass/volume] in Serum or Plasma [2345-7] 09/17/2025 12:17 PM 296 mg/dL N Blood chemistry[[id number]] Glucose [Mass/volume] in Serum or Plasma [2345-7] 09/16/2025 05:21 PM 312 mg/dL N Blood chemistry[[id number]] Glucose [Mass/volume] in Serum or Plasma [2345-7] 09/16/2025 09:58 AM 284 mg/dL N Blood chemistry[[id number]] Glucose [Mass/volume] in Serum or Plasma [2345-7] 09/16/2025 12:29 PM 262 mg/dL N Blood chemistry[[id number]] Glucose [Mass/volume] in Serum or Plasma [2345-7] 09/15/2025 12:13 PM 151 mg/dL N Blood chemistry[[id number]] Glucose [Mass/volume] in Serum or Plasma [2345-7] 09/15/2025 05:08 PM 259 mg/dL N Blood chemistry[[id number]] Glucose [Mass/volume] in Serum or Plasma [2345-7] 09/15/2025 10:04 AM 220 mg/dL N Blood chemistry[[id number]] Glucose [Mass/volume] in Serum or Plasma [2345-7] 09/15/2025 12:40 PM 256 mg/dL N Blood chemistry[[id number]] Glucose [Mass/volume] in Serum or Plasma [2345-7] 09/14/2025 05:19 PM 274 mg/dL N Blood chemistry[[id number]] Glucose [Mass/volume] in Serum or Plasma [2345-7] 09/14/2025 11:00 AM 352 mg/dL N Blood chemistry[[id number]] Glucose [Mass/volume] in Serum or Plasma [2345-7] 09/14/2025 05:36 PM 315 mg/dL N Blood chemistry[[id number]] Glucose [Mass/volume] in Serum or Plasma [2345-7] 09/14/2025 12:32 PM 216 mg/dL N Blood chemistry[[id number]] Glucose [Mass/volume] in Serum or Plasma [2345-7] 09/13/2025 02:22 PM 353 mg/dL N Blood chemistry[[id number]] Glucose [Mass/volume] in Serum or Plasma [2345-7] 09/13/2025 05:26 PM 323 mg/dL N Blood chemistry[[id number]] Glucose [Mass/volume] in Serum or Plasma [2345-7] 09/13/2025 10:08 AM 262 mg/dL N Blood chemistry[[id number]] Glucose [Mass/volume] in Serum or Plasma [2345-7] 09/13/2025 12:37 PM 300 mg/dL N Blood chemistry[[id number]] Glucose [Mass/volume] in Serum or Plasma [2345-7] 09/12/2025 12:54 PM 296 mg/dL N Blood chemistry[[id number]] Glucose [Mass/volume] in Serum or Plasma [2345-7] 09/12/2025 05:28 PM 261 mg/dL N Blood chemistry[[id number]] Glucose [Mass/volume] in Serum or Plasma [2345-7] 09/12/2025 01:56 PM 235 mg/dL N Blood chemistry[[id number]] Glucose [Mass/volume] in Serum or Plasma [2345-7] 09/12/2025 10:27 AM 168 mg/dL N Blood chemistry[[id number]] Glucose [Mass/volume] in Serum or Plasma [2345-7] 09/11/2025 02:45 PM 271 mg/dL N Blood chemistry[[id number]] Glucose [Mass/volume] in Serum or Plasma [2345-7] 09/11/2025 05:28 PM 206 mg/dL N Blood chemistry[[id number]] Glucose [Mass/volume] in Serum or Plasma [2345-7] 09/11/2025 10:29 AM 210 mg/dL N Blood chemistry[[id number]] Glucose [Mass/volume] in Serum or Plasma [2345-7] 09/11/2025 01:08 PM 205 mg/dL N Blood chemistry[[id number]] Glucose [Mass/volume] in Serum or Plasma [2345-7] 09/10/2025 04:58 PM 226 mg/dL N Blood chemistry[[id number]] Glucose [Mass/volume] in Serum or Plasma [2345-7] 09/10/2025 05:48 PM 230 mg/dL N Blood chemistry[[id number]] Glucose [Mass/volume] in Serum or Plasma [2345-7] 09/10/2025 10:14 AM 185 mg/dL N Blood chemistry[[id number]] Glucose [Mass/volume] in Serum or Plasma [2345-7] 09/10/2025 12:25 PM 219 mg/dL N Blood chemistry[[id number]] Glucose [Mass/volume] in Serum or Plasma [2345-7] 09/09/2025 02:36 PM 305 mg/dL N Blood chemistry[[id number]] Glucose [Mass/volume] in Serum or Plasma [2345-7] 09/09/2025 06:07 PM 257 mg/dL N Blood chemistry[[id number]] Glucose [Mass/volume] in Serum or Plasma [2345-7] 09/09/2025 11:11 AM 140 mg/dL N Blood chemistry[[id number]] Glucose [Mass/volume] in Serum or Plasma [2345-7] 09/09/2025 02:15 PM 211 mg/dL N Blood chemistry[[id number]] Glucose [Mass/volume] in Serum or Plasma [2345-7] 09/08/2025 03:09 PM 178 mg/dL N Blood chemistry[[id number]] Glucose [Mass/volume] in Serum or Plasma [2345-7] 09/08/2025 05:05 PM 120 mg/dL N Blood chemistry[[id number]] Glucose [Mass/volume] in Serum or Plasma [2345-7] 09/08/2025 12:33 PM 252 mg/dL N Blood chemistry[[id number]] Glucose [Mass/volume] in Serum or Plasma [2345-7] 09/07/2025 05:11 PM 257 mg/dL N Blood chemistry[[id number]] Glucose [Mass/volume] in Serum or Plasma [2345-7] 09/07/2025 05:13 PM 234 mg/dL N Blood chemistry[[id number]] Glucose [Mass/volume] in Serum or Plasma [2345-7] 09/07/2025 09:56 AM 233 mg/dL N Blood chemistry[[id number]] Glucose [Mass/volume] in Serum or Plasma [2345-7] 09/07/2025 12:16 PM 189 mg/dL N Blood chemistry[[id number]] Glucose [Mass/volume] in Serum or Plasma [2345-7] 09/06/2025 02:25 PM 128 mg/dL N Blood chemistry[[id number]] Glucose [Mass/volume] in Serum or Plasma [2345-7] 09/06/2025 04:51 PM 291 mg/dL N Blood chemistry[[id number]] Glucose [Mass/volume] in Serum or Plasma [2345-7] 09/06/2025 10:03 AM 159 mg/dL N Blood chemistry[[id number]] Glucose [Mass/volume] in Serum or Plasma [2345-7] 09/06/2025 12:33 PM 201 mg/dL N Blood chemistry[[id number]] Glucose [Mass/volume] in Serum or Plasma [2345-7] 09/06/2025 06:16 PM 294 mg/dL N Blood chemistry[[id number]] Glucose [Mass/volume] in Serum or Plasma [2345-7] 09/05/2025 05:31 PM 205 mg/dL N Blood chemistry[[id number]] Glucose [Mass/volume] in Serum or Plasma [2345-7] 09/05/2025 09:31 AM 106 mg/dL N Blood chemistry[[id number]] Glucose [Mass/volume] in Serum or Plasma [2345-7] 09/05/2025 12:38 PM 207 mg/dL N Blood chemistry[[id number]] Glucose [Mass/volume] in Serum or Plasma [2345-7] 09/04/2025 01:56 PM 184 mg/dL N Blood chemistry[[id number]] Glucose [Mass/volume] in Serum or Plasma [2345-7] 09/04/2025 05:26 PM 255 mg/dL N Blood chemistry[[id number]] Glucose [Mass/volume] in Serum or Plasma [2345-7] 09/04/2025 10:11 AM 115 mg/dL N Blood chemistry[[id number]] Glucose [Mass/volume] in Serum or Plasma [2345-7] 09/04/2025 12:38 PM 235 mg/dL N Blood chemistry[[id number]] Glucose [Mass/volume] in Serum or Plasma [2345-7] 09/03/2025 02:23 PM 220 mg/dL N Blood chemistry[[id number]] Glucose [Mass/volume] in Serum or Plasma [2345-7] 09/03/2025 05:11 PM 215 mg/dL N Blood chemistry[[id number]] Glucose [Mass/volume] in Serum or Plasma [2345-7] 09/03/2025 09:42 AM 185 mg/dL N Blood chemistry[[id number]] Glucose [Mass/volume] in Serum or Plasma [2345-7] 09/03/2025 12:38 PM 173 mg/dL N Blood chemistry[[id number]] Glucose [Mass/volume] in Serum or Plasma [2345-7] 09/02/2025 02:56 PM 222 mg/dL N Blood chemistry[[id number]] Glucose [Mass/volume] in Serum or Plasma [2345-7] 09/02/2025 04:56 PM 269 mg/dL N Blood chemistry[[id number]] Glucose [Mass/volume] in Serum or Plasma [2345-7] 09/02/2025 10:51 AM 236 mg/dL N Blood chemistry[[id number]] Glucose [Mass/volume] in Serum or Plasma [2345-7] 09/02/2025 12:54 PM 157 mg/dL N Blood chemistry[[id number]] Glucose [Mass/volume] in Serum or Plasma [2345-7] 09/01/2025 02:56 PM 178 mg/dL N Blood chemistry[[id number]] Glucose [Mass/volume] in Serum or Plasma [2345-7] 09/01/2025 05:01 PM 274 mg/dL N Blood chemistry[[id number]] Glucose [Mass/volume] in Serum or Plasma [2345-7] 09/01/2025 09:58 AM 210 mg/dL N Blood chemistry[[id number]] Glucose [Mass/volume] in Serum or Plasma [2345-7] 09/01/2025 12:35 PM 283 mg/dL N Blood chemistry[[id number]] Glucose [Mass/volume] in Serum or Plasma [2345-7] 08/31/2025 12:13 PM 140 mg/dL N Blood chemistry[[id number]] Glucose [Mass/volume] in Serum or Plasma [2345-7] 08/31/2025 05:09 PM 284 mg/dL N Blood chemistry[[id number]] Glucose [Mass/volume] in Serum or Plasma [2345-7] 08/31/2025 09:32 AM 199 mg/dL N Blood chemistry[[id number]] Glucose [Mass/volume] in Serum or Plasma [2345-7] 08/31/2025 12:51 PM 154 mg/dL N Blood chemistry[[id number]] Glucose [Mass/volume] in Serum or Plasma [2345-7] 08/30/2025 12:51 PM 136 mg/dL N Blood chemistry[[id number]] Glucose [Mass/volume] in Serum or Plasma [2345-7] 08/30/2025 10:35 AM 172 mg/dL N Blood chemistry[[id number]] Glucose [Mass/volume] in Serum or Plasma [2345-7] 08/30/2025 01:02 PM 174 mg/dL N Blood chemistry[[id number]] Glucose [Mass/volume] in Serum or Plasma [2345-7] 08/29/2025 04:17 PM 227 mg/dL N Blood chemistry[[id number]] Glucose [Mass/volume] in Serum or Plasma [2345-7] 08/29/2025 05:18 PM 253 mg/dL N Blood chemistry[[id number]] Glucose [Mass/volume] in Serum or Plasma [2345-7] 08/29/2025 11:18 AM 127 mg/dL N Blood chemistry[[id number]] Glucose [Mass/volume] in Serum or Plasma [2345-7] 08/29/2025 01:58 PM 197 mg/dL N Blood chemistry[[id number]] Glucose [Mass/volume] in Serum or Plasma [2345-7] 08/28/2025 12:26 PM 195 mg/dL N Blood chemistry[[id number]] Glucose [Mass/volume] in Serum or Plasma [2345-7] 08/28/2025 06:02 PM 163 mg/dL N Blood chemistry[[id number]] Glucose [Mass/volume] in Serum or Plasma [2345-7] 08/28/2025 10:42 AM 137 mg/dL N Blood chemistry[[id number]] Glucose [Mass/volume] in Serum or Plasma [2345-7] 08/28/2025 01:20 PM 207 mg/dL N Blood chemistry[[id number]] Glucose [Mass/volume] in Serum or Plasma [2345-7] 08/27/2025 05:30 PM 185 mg/dL N Blood chemistry[[id number]] Glucose [Mass/volume] in Serum or Plasma [2345-7] 08/27/2025 11:16 AM 208 mg/dL N Blood chemistry[[id number]] Glucose [Mass/volume] in Serum or Plasma [2345-7] 08/27/2025 08:21 AM 173 mg/dL N Blood chemistry[[id number]] Glucose [Mass/volume] in Serum or Plasma [2345-7] 08/27/2025 02:44 PM 195 mg/dL N Blood chemistry[[id number]] Glucose [Mass/volume] in Serum or Plasma [2345-7] 08/26/2025 02:50 PM 92 mg/dL N Blood chemistry[[id number]] Glucose [Mass/volume] in Serum or Plasma [2345-7] 08/26/2025 04:23 PM 161 mg/dL N Blood chemistry[[id number]] Glucose [Mass/volume] in Serum or Plasma [2345-7] 08/26/2025 09:56 AM 196 mg/dL N Blood chemistry[[id number]] Glucose [Mass/volume] in Serum or Plasma [2345-7] 08/26/2025 07:19 AM 212 mg/dL N Blood chemistry[[id number]] Glucose [Mass/volume] in Serum or Plasma [2345-7] 08/25/2025 05:16 PM 182 mg/dL N Blood chemistry[[id number]] Glucose [Mass/volume] in Serum or Plasma [2345-7] 08/25/2025 12:58 PM 210 mg/dL N Blood chemistry[[id number]] Glucose [Mass/volume] in Serum or Plasma [2345-7] 08/24/2025 04:49 PM 154 mg/dL N Blood chemistry[[id number]] Glucose [Mass/volume] in Serum or Plasma [2345-7] 08/24/2025 05:59 PM 204 mg/dL N Blood chemistry[[id number]] Glucose [Mass/volume] in Serum or Plasma [2345-7] 08/24/2025 09:38 AM 174 mg/dL N Blood chemistry[[id number]] Glucose [Mass/volume] in Serum or Plasma [2345-7] 08/24/2025 12:26 PM 187 mg/dL N Blood chemistry[[id number]] Glucose [Mass/volume] in Serum or Plasma [2345-7] 08/23/2025 01:29 PM 143 mg/dL N Blood chemistry[[id number]] Glucose [Mass/volume] in Serum or Plasma [2345-7] 08/23/2025 04:57 PM 242 mg/dL N Blood chemistry[[id number]] Glucose [Mass/volume] in Serum or Plasma [2345-7] 08/23/2025 09:56 AM 191 mg/dL N Blood chemistry[[id number]] Glucose [Mass/volume] in Serum or Plasma [2345-7] 08/23/2025 12:38 PM 220 mg/dL N Blood chemistry[[id number]] Glucose [Mass/volume] in Serum or Plasma [2345-7] 08/22/2025 02:08 PM 110 mg/dL N Blood chemistry[[id number]] Glucose [Mass/volume] in Serum or Plasma [2345-7] 08/22/2025 05:07 PM 231 mg/dL N Blood chemistry[[id number]] Glucose [Mass/volume] in Serum or Plasma [2345-7] 08/22/2025 10:05 AM 143 mg/dL N Blood chemistry[[id number]] Glucose [Mass/volume] in Serum or Plasma [2345-7] 08/22/2025 12:42 PM 162 mg/dL N Blood chemistry[[id number]] Glucose [Mass/volume] in Serum or Plasma [2345-7] 08/22/2025 06:06 PM 174 mg/dL N Blood chemistry[[id number]] Glucose [Mass/volume] in Serum or Plasma [2345-7] 08/21/2025 05:21 PM 169 mg/dL N Blood chemistry[[id number]] Glucose [Mass/volume] in Serum or Plasma [2345-7] 08/21/2025 10:32 AM 179 mg/dL N Blood chemistry[[id number]] Glucose [Mass/volume] in Serum or Plasma [2345-7] 08/21/2025 01:01 PM 199 mg/dL N Blood chemistry[[id number]] Glucose [Mass/volume] in Serum or Plasma [2345-7] 08/20/2025 12:37 PM 213 mg/dL N Blood chemistry[[id number]] Glucose [Mass/volume] in Serum or Plasma [2345-7] 08/20/2025 05:33 PM 185 mg/dL N Blood chemistry[[id number]] Glucose [Mass/volume] in Serum or Plasma [2345-7] 08/20/2025 10:20 AM 167 mg/dL N Blood chemistry[[id number]] Glucose [Mass/volume] in Serum or Plasma [2345-7] 08/20/2025 12:49 PM 191 mg/dL N Blood chemistry[[id number]] Glucose [Mass/volume] in Serum or Plasma [2345-7] 08/19/2025 05:55 PM 125 mg/dL N Blood chemistry[[id number]] Glucose [Mass/volume] in Serum or Plasma [2345-7] 08/19/2025 05:06 PM 247 mg/dL N Blood chemistry[[id number]] Glucose [Mass/volume] in Serum or Plasma [2345-7] 08/19/2025 10:09 AM 186 mg/dL N Blood chemistry[[id number]] Glucose [Mass/volume] in Serum or Plasma [2345-7] 08/19/2025 12:41 PM 173 mg/dL N Blood chemistry[[id number]] Glucose [Mass/volume] in Serum or Plasma [2345-7] 08/18/2025 02:41 PM 141 mg/dL N Blood chemistry[[id number]] Glucose [Mass/volume] in Serum or Plasma [2345-7] 08/18/2025 05:25 PM 219 mg/dL N Blood chemistry[[id number]] Glucose [Mass/volume] in Serum or Plasma [2345-7] 08/18/2025 10:12 AM 152 mg/dL N Blood chemistry[[id number]] Glucose [Mass/volume] in Serum or Plasma [2345-7] 08/18/2025 12:29 PM 170 mg/dL N Blood chemistry[[id number]] Glucose [Mass/volume] in Serum or Plasma [2345-7] 08/17/2025 12:20 PM 148 mg/dL N Blood chemistry[[id number]] Glucose [Mass/volume] in Serum or Plasma [2345-7] 08/17/2025 05:25 PM 294 mg/dL N Blood chemistry[[id number]] Glucose [Mass/volume] in Serum or Plasma [2345-7] 08/17/2025 09:58 AM 398 mg/dL N Blood chemistry[[id number]] Glucose [Mass/volume] in Serum or Plasma [2345-7] 08/17/2025 12:22 PM 211 mg/dL N Blood chemistry[[id number]] Glucose [Mass/volume] in Serum or Plasma [2345-7] 08/16/2025 01:35 PM 272 mg/dL N Blood chemistry[[id number]] Glucose [Mass/volume] in Serum or Plasma [2345-7] 08/16/2025 04:36 PM 309 mg/dL N Blood chemistry[[id number]] Glucose [Mass/volume] in Serum or Plasma [2345-7] 08/16/2025 10:08 AM 167 mg/dL N Blood chemistry[[id number]] Glucose [Mass/volume] in Serum or Plasma [2345-7] 08/16/2025 12:42 PM 214 mg/dL N Blood chemistry[[id number]] Glucose [Mass/volume] in Serum or Plasma [2345-7] 08/15/2025 01:22 PM 266 mg/dL N Blood chemistry[[id number]] Glucose [Mass/volume] in Serum or Plasma [2345-7] 08/15/2025 11:27 AM 207 mg/dL N Blood chemistry[[id number]] Glucose [Mass/volume] in Serum or Plasma [2345-7] 08/15/2025 02:45 PM 260 mg/dL N Blood chemistry[[id number]] Glucose [Mass/volume] in Serum or Plasma [2345-7] 08/14/2025 02:32 PM 185 mg/dL N Blood chemistry[[id number]] Glucose [Mass/volume] in Serum or Plasma [2345-7] 08/14/2025 05:48 PM 139 mg/dL N Blood chemistry[[id number]] Glucose [Mass/volume] in Serum or Plasma [2345-7] 08/14/2025 01:47 PM 227 mg/dL N Blood chemistry[[id number]] Glucose [Mass/volume] in Serum or Plasma [2345-7] 08/14/2025 10:26 AM 173 mg/dL N Blood chemistry[[id number]] Glucose [Mass/volume] in Serum or Plasma [2345-7] 08/13/2025 12:43 PM 222 mg/dL N Blood chemistry[[id number]] Glucose [Mass/volume] in Serum or Plasma [2345-7] 08/13/2025 05:28 PM 132 mg/dL N Blood chemistry[[id number]] Glucose [Mass/volume] in Serum or Plasma [2345-7] 08/13/2025 03:04 PM 211 mg/dL N Blood chemistry[[id number]] Glucose [Mass/volume] in Serum or Plasma [2345-7] 08/13/2025 09:00 AM 191 mg/dL N Blood chemistry[[id number]] Glucose [Mass/volume] in Serum or Plasma [2345-7] 08/12/2025 12:29 PM 247 mg/dL N Blood chemistry[[id number]] Glucose [Mass/volume] in Serum or Plasma [2345-7] 08/12/2025 11:29 AM 251 mg/dL N Blood chemistry[[id number]] Glucose [Mass/volume] in Serum or Plasma [2345-7] 08/12/2025 04:50 PM 247 mg/dL N Blood chemistry[[id number]] Glucose [Mass/volume] in Serum or Plasma [2345-7] 08/12/2025 01:26 PM 186 mg/dL N Blood chemistry[[id number]] Glucose [Mass/volume] in Serum or Plasma [2345-7] 08/11/2025 12:50 PM 231 mg/dL N Blood chemistry[[id number]] Glucose [Mass/volume] in Serum or Plasma [2345-7] 08/11/2025 05:16 PM 211 mg/dL N Blood chemistry[[id number]] Glucose [Mass/volume] in Serum or Plasma [2345-7] 08/11/2025 10:28 AM 151 mg/dL N Blood chemistry[[id number]] Glucose [Mass/volume] in Serum or Plasma [2345-7] 08/11/2025 01:15 PM 200 mg/dL N Blood chemistry[[id number]] Glucose [Mass/volume] in Serum or Plasma [2345-7] 08/06/2025 05:26 PM 244 mg/dL N Blood chemistry[[id number]] Glucose [Mass/volume] in Serum or Plasma [2345-7] 08/06/2025 10:03 AM 129 mg/dL N Blood chemistry[[id number]] Glucose [Mass/volume] in Serum or Plasma [2345-7] 08/06/2025 12:32 PM 148 mg/dL N Blood chemistry[[id number]] Glucose [Mass/volume] in Serum or Plasma [2345-7] 08/05/2025 02:48 PM 188 mg/dL N Blood chemistry[[id number]] Glucose [Mass/volume] in Serum or Plasma [2345-7] 08/05/2025 04:15 PM 320 mg/dL N Blood chemistry[[id number]] Glucose [Mass/volume] in Serum or Plasma [2345-7] 08/05/2025 09:20 AM 253 mg/dL N Blood chemistry[[id number]] Glucose [Mass/volume] in Serum or Plasma [2345-7] 08/05/2025 11:43 AM 235 mg/dL N Blood chemistry[[id number]] Glucose [Mass/volume] in Serum or Plasma [2345-7] 08/04/2025 03:52 PM 215 mg/dL N Blood chemistry[[id number]] Glucose [Mass/volume] in Serum or Plasma [2345-7] 08/04/2025 04:02 PM 146 mg/dL N Blood chemistry[[id number]] Glucose [Mass/volume] in Serum or Plasma [2345-7] 08/04/2025 08:28 AM 227 mg/dL N Blood chemistry[[id number]] Glucose [Mass/volume] in Serum or Plasma [2345-7] 08/04/2025 11:30 AM 180 mg/dL N Blood chemistry[[id number]] Glucose [Mass/volume] in Serum or Plasma [2345-7] 08/03/2025 03:51 PM 195 mg/dL N Blood chemistry[[id number]] Glucose [Mass/volume] in Serum or Plasma [2345-7] 08/03/2025 04:44 PM 148 mg/dL N Blood chemistry[[id number]] Glucose [Mass/volume] in Serum or Plasma [2345-7] 08/03/2025 09:21 AM 125 mg/dL N Blood chemistry[[id number]] Glucose [Mass/volume] in Serum or Plasma [2345-7] 08/03/2025 11:29 AM 233 mg/dL N Blood chemistry[[id number]] Glucose [Mass/volume] in Serum or Plasma [2345-7] 08/02/2025 01:00 PM 217 mg/dL N Blood chemistry[[id number]] Glucose [Mass/volume] in Serum or Plasma [2345-7] 08/02/2025 04:24 PM 286 mg/dL N Blood chemistry[[id number]] Glucose [Mass/volume] in Serum or Plasma [2345-7] 08/02/2025 10:06 AM 259 mg/dL N Blood chemistry[[id number]] Glucose [Mass/volume] in Serum or Plasma [2345-7] 08/02/2025 11:27 AM 231 mg/dL N Blood chemistry[[id number]] Glucose [Mass/volume] in Serum or Plasma [2345-7] 08/01/2025 12:24 PM 230 mg/dL N Blood chemistry[[id number]] Glucose [Mass/volume] in Serum or Plasma [2345-7] 08/01/2025 04:03 PM 208 mg/dL N Blood chemistry[[id number]] Glucose [Mass/volume] in Serum or Plasma [2345-7] 08/01/2025 09:16 AM 191 mg/dL N Blood chemistry[[id number]] Glucose [Mass/volume] in Serum or Plasma [2345-7] 08/01/2025 12:29 PM 246 mg/dL N Blood chemistry[[id number]] Glucose [Mass/volume] in Serum or Plasma [2345-7] 07/31/2025 12:45 PM 284 mg/dL N Blood chemistry[[id number]] Glucose [Mass/volume] in Serum or Plasma [2345-7] 07/31/2025 10:52 AM 175 mg/dL N Blood chemistry[[id number]] Glucose [Mass/volume] in Serum or Plasma [2345-7] 07/31/2025 04:18 PM 244 mg/dL N Blood chemistry[[id number]] Glucose [Mass/volume] in Serum or Plasma [2345-7] 07/31/2025 11:27 AM 200 mg/dL N Blood chemistry[[id number]] Glucose [Mass/volume] in Serum or Plasma [2345-7] 07/30/2025 12:42 PM 101 mg/dL N Blood chemistry[[id number]] Glucose [Mass/volume] in Serum or Plasma [2345-7] 07/30/2025 05:15 PM 357 mg/dL N Blood chemistry[[id number]] Glucose [Mass/volume] in Serum or Plasma [2345-7] 07/30/2025 09:07 AM 105 mg/dL N Blood chemistry[[id number]] Glucose [Mass/volume] in Serum or Plasma [2345-7] 07/30/2025 01:17 PM 177 mg/dL N Blood chemistry[[id number]] Glucose [Mass/volume] in Serum or Plasma [2345-7] 07/29/2025 03:38 PM 171 mg/dL N Blood chemistry[[id number]] Glucose [Mass/volume] in Serum or Plasma [2345-7] 07/29/2025 10:18 AM 134 mg/dL N Blood chemistry[[id number]] Glucose [Mass/volume] in Serum or Plasma [2345-7] 07/29/2025 04:55 PM 305 mg/dL N Blood chemistry[[id number]] Glucose [Mass/volume] in Serum or Plasma [2345-7] 07/29/2025 12:56 PM 190 mg/dL N Blood chemistry[[id number]] Glucose [Mass/volume] in Serum or Plasma [2345-7] 07/28/2025 04:50 PM 171 mg/dL N Blood chemistry[[id number]] Glucose [Mass/volume] in Serum or Plasma [2345-7] 07/28/2025 05:33 PM 151 mg/dL N Blood chemistry[[id number]] Glucose [Mass/volume] in Serum or Plasma [2345-7] 07/28/2025 12:38 PM 223 mg/dL N Blood chemistry[[id number]] Glucose [Mass/volume] in Serum or Plasma [2345-7] 07/28/2025 09:42 AM 249 mg/dL N Blood chemistry[[id number]] Glucose [Mass/volume] in Serum or Plasma [2345-7] 07/28/2025 07:18 AM 175 mg/dL N Blood chemistry[[id number]] Glucose [Mass/volume] in Serum or Plasma [2345-7] 07/27/2025 10:32 AM 256 mg/dL N Blood chemistry[[id number]] Glucose [Mass/volume] in Serum or Plasma [2345-7] 07/27/2025 04:05 PM 270 mg/dL N Blood chemistry[[id number]] Glucose [Mass/volume] in Serum or Plasma [2345-7] 07/27/2025 11:38 AM 252 mg/dL N Blood chemistry[[id number]] Glucose [Mass/volume] in Serum or Plasma [2345-7] 07/26/2025 01:33 PM 279 mg/dL N Blood chemistry[[id number]] Glucose [Mass/volume] in Serum or Plasma [2345-7] 07/26/2025 04:20 PM 236 mg/dL N Blood chemistry[[id number]] Glucose [Mass/volume] in Serum or Plasma [2345-7] 07/26/2025 09:16 AM 284 mg/dL N Blood chemistry[[id number]] Glucose [Mass/volume] in Serum or Plasma [2345-7] 07/26/2025 11:45 AM 257 mg/dL N Blood chemistry[[id number]] Glucose [Mass/volume] in Serum or Plasma [2345-7] 07/25/2025 04:23 PM 266 mg/dL N Blood chemistry[[id number]] Glucose [Mass/volume] in Serum or Plasma [2345-7] 07/25/2025 03:52 PM 301 mg/dL N Blood chemistry[[id number]] Glucose [Mass/volume] in Serum or Plasma [2345-7] 07/25/2025 08:55 AM 296 mg/dL N Blood chemistry[[id number]] Glucose [Mass/volume] in Serum or Plasma [2345-7] 07/25/2025 11:28 AM 174 mg/dL N Blood chemistry[[id number]] Glucose [Mass/volume] in Serum or Plasma [2345-7] 07/24/2025 12:51 PM 148 mg/dL N Blood chemistry[[id number]] Glucose [Mass/volume] in Serum or Plasma [2345-7] 07/24/2025 10:45 AM 112 mg/dL N Blood chemistry[[id number]] Glucose [Mass/volume] in Serum or Plasma [2345-7] 07/24/2025 05:15 PM 122 mg/dL N Blood chemistry[[id number]] Glucose [Mass/volume] in Serum or Plasma [2345-7] 07/24/2025 02:03 PM 246 mg/dL N Blood chemistry[[id number]] Glucose [Mass/volume] in Serum or Plasma [2345-7] 07/23/2025 04:26 PM 319 mg/dL N Blood chemistry[[id number]] Glucose [Mass/volume] in Serum or Plasma [2345-7] 07/23/2025 09:36 AM 171 mg/dL N Blood chemistry[[id number]] Glucose [Mass/volume] in Serum or Plasma [2345-7] 07/23/2025 12:56 PM 274 mg/dL N Blood chemistry[[id number]] Glucose [Mass/volume] in Serum or Plasma [2345-7] 07/22/2025 04:06 PM 213 mg/dL N Blood chemistry[[id number]] Glucose [Mass/volume] in Serum or Plasma [2345-7] 07/22/2025 10:02 AM 236 mg/dL N Blood chemistry[[id number]] Glucose [Mass/volume] in Serum or Plasma [2345-7] 07/22/2025 11:24 AM 302 mg/dL N Blood chemistry[[id number]] Glucose [Mass/volume] in Serum or Plasma [2345-7] 07/21/2025 04:46 PM 226 mg/dL N Blood chemistry[[id number]] Glucose [Mass/volume] in Serum or Plasma [2345-7] 07/21/2025 09:19 AM 186 mg/dL N Blood chemistry[[id number]] Glucose [Mass/volume] in Serum or Plasma [2345-7] 07/21/2025 11:32 AM 227 mg/dL N Blood chemistry[[id number]] Glucose [Mass/volume] in Serum or Plasma [2345-7] 07/20/2025 11:54 AM 226 mg/dL N Blood chemistry[[id number]] Glucose [Mass/volume] in Serum or Plasma [2345-7] 07/20/2025 04:14 PM 224 mg/dL N Blood chemistry[[id number]] Glucose [Mass/volume] in Serum or Plasma [2345-7] 07/20/2025 09:03 AM 192 mg/dL N Blood chemistry[[id number]] Glucose [Mass/volume] in Serum or Plasma [2345-7] 07/20/2025 11:59 AM 221 mg/dL N Blood chemistry[[id number]] Glucose [Mass/volume] in Serum or Plasma [2345-7] 07/19/2025 01:43 PM 108 mg/dL N Blood chemistry[[id number]] Glucose [Mass/volume] in Serum or Plasma [2345-7] 07/19/2025 04:24 PM 164 mg/dL N Blood chemistry[[id number]] Glucose [Mass/volume] in Serum or Plasma [2345-7] 07/19/2025 09:43 AM 185 mg/dL N Blood chemistry[[id number]] Glucose [Mass/volume] in Serum or Plasma [2345-7] 07/19/2025 11:52 AM 184 mg/dL N Blood chemistry[[id number]] Glucose [Mass/volume] in Serum or Plasma [2345-7] 07/19/2025 06:54 AM 174 mg/dL N Blood chemistry[[id number]] Glucose [Mass/volume] in Serum or Plasma [2345-7] 07/18/2025 04:51 PM 257 mg/dL N Blood chemistry[[id number]] Glucose [Mass/volume] in Serum or Plasma [2345-7] 07/18/2025 08:57 AM 124 mg/dL N Blood chemistry[[id number]] Glucose [Mass/volume] in Serum or Plasma [2345-7] 07/18/2025 12:20 PM 257 mg/dL N Blood chemistry[[id number]] Glucose [Mass/volume] in Serum or Plasma [2345-7] 07/18/2025 05:25 PM 222 mg/dL N Blood chemistry[[id number]] Glucose [Mass/volume] in Serum or Plasma [2345-7] 07/17/2025 09:36 AM 208 mg/dL N Blood chemistry[[id number]] Glucose [Mass/volume] in Serum or Plasma [2345-7] 07/17/2025 04:12 PM 309 mg/dL N Blood chemistry[[id number]] Glucose [Mass/volume] in Serum or Plasma [2345-7] 07/17/2025 12:48 PM 313 mg/dL N Blood chemistry[[id number]] Glucose [Mass/volume] in Serum or Plasma [2345-7] 07/16/2025 04:32 PM 317 mg/dL N Blood chemistry[[id number]] Glucose [Mass/volume] in Serum or Plasma [2345-7] 07/16/2025 09:47 AM 214 mg/dL N Blood chemistry[[id number]] Glucose [Mass/volume] in Serum or Plasma [2345-7] 07/16/2025 12:15 PM 197 mg/dL N Blood chemistry[[id number]] Glucose [Mass/volume] in Serum or Plasma [2345-7] 07/15/2025 04:44 PM 191 mg/dL N Blood chemistry[[id number]] Glucose [Mass/volume] in Serum or Plasma [2345-7] 07/15/2025 04:26 PM 280 mg/dL N Blood chemistry[[id number]] Glucose [Mass/volume] in Serum or Plasma [2345-7] 07/15/2025 09:52 AM 118 mg/dL N Blood chemistry[[id number]] Glucose [Mass/volume] in Serum or Plasma [2345-7] 07/15/2025 12:25 PM 209 mg/dL N Blood chemistry[[id number]] Glucose [Mass/volume] in Serum or Plasma [2345-7] 07/14/2025 04:10 PM 209 mg/dL N Blood chemistry[[id number]] Glucose [Mass/volume] in Serum or Plasma [2345-7] 07/14/2025 10:14 AM 207 mg/dL N Blood chemistry[[id number]] Glucose [Mass/volume] in Serum or Plasma [2345-7] 07/14/2025 12:12 PM 211 mg/dL N Blood chemistry[[id number]] Glucose [Mass/volume] in Serum or Plasma [2345-7] 07/14/2025 06:28 AM 205 mg/dL N Blood chemistry[[id number]] Glucose [Mass/volume] in Serum or Plasma [2345-7] 07/13/2025 03:46 PM 283 mg/dL N Blood chemistry[[id number]] Glucose [Mass/volume] in Serum or Plasma [2345-7] 07/13/2025 09:01 AM 315 mg/dL N Blood chemistry[[id number]] Glucose [Mass/volume] in Serum or Plasma [2345-7] 07/13/2025 11:23 AM 239 mg/dL N Blood chemistry[[id number]] Glucose [Mass/volume] in Serum or Plasma [2345-7] 07/12/2025 03:58 PM 233 mg/dL N Blood chemistry[[id number]] Glucose [Mass/volume] in Serum or Plasma [2345-7] 07/12/2025 04:16 PM 315 mg/dL N Blood chemistry[[id number]] Glucose [Mass/volume] in Serum or Plasma [2345-7] 07/12/2025 09:12 AM 261 mg/dL N Blood chemistry[[id number]] Glucose [Mass/volume] in Serum or Plasma [2345-7] 07/12/2025 11:27 AM 300 mg/dL N Blood chemistry[[id number]] Glucose [Mass/volume] in Serum or Plasma [2345-7] 07/11/2025 12:42 PM 183 mg/dL N Blood chemistry[[id number]] Glucose [Mass/volume] in Serum or Plasma [2345-7] 07/11/2025 04:14 PM 285 mg/dL N Blood chemistry[[id number]] Glucose [Mass/volume] in Serum or Plasma [2345-7] 07/11/2025 08:26 AM 198 mg/dL N Blood chemistry[[id number]] Glucose [Mass/volume] in Serum or Plasma [2345-7] 07/11/2025 11:36 AM 232 mg/dL N Blood chemistry[[id number]] Glucose [Mass/volume] in Serum or Plasma [2345-7] 07/10/2025 01:08 PM 327 mg/dL N Blood chemistry[[id number]] Glucose [Mass/volume] in Serum or Plasma [2345-7] 07/10/2025 03:49 PM 299 mg/dL N Blood chemistry[[id number]] Glucose [Mass/volume] in Serum or Plasma [2345-7] 07/10/2025 09:37 AM 274 mg/dL N Blood chemistry[[id number]] Glucose [Mass/volume] in Serum or Plasma [2345-7] 07/10/2025 11:33 AM 204 mg/dL N Blood chemistry[[id number]] Glucose [Mass/volume] in Serum or Plasma [2345-7] 07/09/2025 11:08 AM 174 mg/dL N Blood chemistry[[id number]] Glucose [Mass/volume] in Serum or Plasma [2345-7] 07/09/2025 04:10 PM 287 mg/dL N Blood chemistry[[id number]] Glucose [Mass/volume] in Serum or Plasma [2345-7] 07/09/2025 08:44 AM 241 mg/dL N Blood chemistry[[id number]] Glucose [Mass/volume] in Serum or Plasma [2345-7] 07/09/2025 10:58 AM 315 mg/dL N Blood chemistry[[id number]] Glucose [Mass/volume] in Serum or Plasma [2345-7] 07/08/2025 12:11 PM 225 mg/dL N Blood chemistry[[id number]] Glucose [Mass/volume] in Serum or Plasma [2345-7] 07/08/2025 04:07 PM 192 mg/dL N Blood chemistry[[id number]] Glucose [Mass/volume] in Serum or Plasma [2345-7] 07/08/2025 08:49 AM 215 mg/dL N Blood chemistry[[id number]] Glucose [Mass/volume] in Serum or Plasma [2345-7] 07/08/2025 11:40 AM 229 mg/dL N Blood chemistry[[id number]] Glucose [Mass/volume] in Serum or Plasma [2345-7] 07/07/2025 11:36 AM 262 mg/dL N Blood chemistry[[id number]] Glucose [Mass/volume] in Serum or Plasma [2345-7] 07/07/2025 04:04 PM 249 mg/dL N Blood chemistry[[id number]] Glucose [Mass/volume] in Serum or Plasma [2345-7] 07/07/2025 09:19 AM 215 mg/dL N Blood chemistry[[id number]] Glucose [Mass/volume] in Serum or Plasma [2345-7] 07/07/2025 11:27 AM 210 mg/dL N Blood chemistry[[id number]] Glucose [Mass/volume] in Serum or Plasma [2345-7] 07/06/2025 01:55 PM 247 mg/dL N Blood chemistry[[id number]] Glucose [Mass/volume] in Serum or Plasma [2345-7] 07/06/2025 04:34 PM 242 mg/dL N Blood chemistry[[id number]] Glucose [Mass/volume] in Serum or Plasma [2345-7] 07/06/2025 08:43 AM 244 mg/dL N Blood chemistry[[id number]] Glucose [Mass/volume] in Serum or Plasma [2345-7] 07/06/2025 11:32 AM 271 mg/dL N Blood chemistry[[id number]] Glucose [Mass/volume] in Serum or Plasma [2345-7] 07/05/2025 03:55 PM 275 mg/dL N Blood chemistry[[id number]] Glucose [Mass/volume] in Serum or Plasma [2345-7] 07/05/2025 04:40 PM 297 mg/dL N Blood chemistry[[id number]] Glucose [Mass/volume] in Serum or Plasma [2345-7] 07/05/2025 09:11 AM 229 mg/dL N Blood chemistry[[id number]] Glucose [Mass/volume] in Serum or Plasma [2345-7] 07/05/2025 11:12 AM 194 mg/dL N Blood chemistry[[id number]] Glucose [Mass/volume] in Serum or Plasma [2345-7] 07/04/2025 02:26 PM 261 mg/dL N Blood chemistry[[id number]] Glucose [Mass/volume] in Serum or Plasma [2345-7] 07/04/2025 04:19 PM 173 mg/dL N Blood chemistry[[id number]] Glucose [Mass/volume] in Serum or Plasma [2345-7] 07/04/2025 09:08 AM 146 mg/dL N Blood chemistry[[id number]] Glucose [Mass/volume] in Serum or Plasma [2345-7] 07/04/2025 11:18 AM 163 mg/dL N Blood chemistry[[id number]] Glucose [Mass/volume] in Serum or Plasma [2345-7] 07/04/2025 07:49 AM 185 mg/dL N Blood chemistry[[id number]] Glucose [Mass/volume] in Serum or Plasma [2345-7] 07/03/2025 10:46 AM 180 mg/dL N Blood chemistry[[id number]] Glucose [Mass/volume] in Serum or Plasma [2345-7] 07/03/2025 04:16 PM 272 mg/dL N Blood chemistry[[id number]] Glucose [Mass/volume] in Serum or Plasma [2345-7] 07/03/2025 11:50 AM 198 mg/dL N Blood chemistry[[id number]] Glucose [Mass/volume] in Serum or Plasma [2345-7] 07/02/2025 11:13 AM 165 mg/dL N Blood chemistry[[id number]] Glucose [Mass/volume] in Serum or Plasma [2345-7] 07/02/2025 05:26 PM 168 mg/dL N Blood chemistry[[id number]] Glucose [Mass/volume] in Serum or Plasma [2345-7] 07/02/2025 02:33 PM 158 mg/dL N Blood chemistry[[id number]] Glucose [Mass/volume] in Serum or Plasma [2345-7] 07/02/2025 09:02 AM 166 mg/dL N Blood chemistry[[id number]] Glucose [Mass/volume] in Serum or Plasma [2345-7] 07/01/2025 01:24 PM 149 mg/dL N Blood chemistry[[id number]] Glucose [Mass/volume] in Serum or Plasma [2345-7] 07/01/2025 05:48 PM 297 mg/dL N Blood chemistry[[id number]] Glucose [Mass/volume] in Serum or Plasma [2345-7] 07/01/2025 09:34 AM 117 mg/dL N Blood chemistry[[id number]] Glucose [Mass/volume] in Serum or Plasma [2345-7] 07/01/2025 12:06 PM 209 mg/dL N Blood chemistry[[id number]] Glucose [Mass/volume] in Serum or Plasma [2345-7] 06/30/2025 12:58 PM 290 mg/dL N Blood chemistry[[id number]] Glucose [Mass/volume] in Serum or Plasma [2345-7] 06/30/2025 04:03 PM 248 mg/dL N Blood chemistry[[id number]] Glucose [Mass/volume] in Serum or Plasma [2345-7] 06/30/2025 08:56 AM 277 mg/dL N Blood chemistry[[id number]] Glucose [Mass/volume] in Serum or Plasma [2345-7] 06/30/2025 11:32 AM 261 mg/dL N Blood chemistry[[id number]] Glucose [Mass/volume] in Serum or Plasma [2345-7] 06/29/2025 12:19 PM 131 mg/dL N Blood chemistry[[id number]] Glucose [Mass/volume] in Serum or Plasma [2345-7] 06/29/2025 04:25 PM 273 mg/dL N Blood chemistry[[id number]] Glucose [Mass/volume] in Serum or Plasma [5-7] 06/29/2025 09:05 AM 95 mg/dL N Blood chemistry[[id number]] Glucose [Mass/volume] in Serum or Plasma [5-7] 06/29/2025 11:34 AM 210 mg/dL N Blood chemistry[[id number]] Glucose [Mass/volume] in Serum or Plasma [2345-7] 06/28/2025 12:49 PM 346 mg/dL N Blood chemistry[[id number]] Glucose [Mass/volume] in Serum or Plasma [2345-7] 06/28/2025 03:55 PM 282 mg/dL N Blood chemistry[[id number]] Glucose [Mass/volume] in Serum or Plasma [5-7] 06/28/2025 08:56 AM 242 mg/dL N Blood chemistry[[id number]] Glucose [Mass/volume] in Serum or Plasma [2345-7] 06/28/2025 12:11 PM 178 mg/dL N Blood chemistry[[id number]] Glucose [Mass/volume] in Serum or Plasma [2345-7] 06/27/2025 03:51 PM 219 mg/dL N Blood chemistry[[id number]] Glucose [Mass/volume] in Serum or Plasma [5-7] 06/27/2025 04:12 PM 201 mg/dL N Blood chemistry[[id number]] Glucose [Mass/volume] in Serum or Plasma [2345-7] 06/27/2025 09:21 AM 261 mg/dL N Blood chemistry[[id number]] Glucose [Mass/volume] in Serum or Plasma [2345-7] 06/27/2025 11:39 AM 128 mg/dL N Blood chemistry[[id number]] Glucose [Mass/volume] in Serum or Plasma [2345-7] 06/27/2025 07:59 AM 120 mg/dL N Blood chemistry[[id number]] Glucose [Mass/volume] in Serum or Plasma [2345-7] 06/26/2025 10:41 AM 89 mg/dL N Blood chemistry[[id number]] Glucose [Mass/volume] in Serum or Plasma [2345-7] 06/26/2025 05:31 PM 180 mg/dL N Blood chemistry[[id number]] Glucose [Mass/volume] in Serum or Plasma [2345-7] 06/26/2025 01:20 PM 189 mg/dL N Blood chemistry[[id number]] Glucose [Mass/volume] in Serum or Plasma [2345-7] 06/25/2025 01:52 PM 230 mg/dL N Blood chemistry[[id number]] Glucose [Mass/volume] in Serum or Plasma [2345-7] 06/25/2025 04:17 PM 249 mg/dL N Blood chemistry[[id number]] Glucose [Mass/volume] in Serum or Plasma [2345-7] 06/25/2025 08:59 AM 193 mg/dL N Blood chemistry[[id number]] Glucose [Mass/volume] in Serum or Plasma [2345-7] 06/25/2025 11:31 AM 207 mg/dL N Blood chemistry[[id number]] Glucose [Mass/volume] in Serum or Plasma [2345-7] 06/24/2025 11:13 AM 122 mg/dL N Blood chemistry[[id number]] Glucose [Mass/volume] in Serum or Plasma [2345-7] 06/24/2025 04:02 PM 244 mg/dL N Blood chemistry[[id number]] Glucose [Mass/volume] in Serum or Plasma [2345-7] 06/24/2025 08:56 AM 114 mg/dL N Blood chemistry[[id number]] Glucose [Mass/volume] in Serum or Plasma [2345-7] 06/24/2025 11:22 AM 183 mg/dL N Blood chemistry[[id number]] Glucose [Mass/volume] in Serum or Plasma [2345-7] 06/23/2025 03:36 PM 178 mg/dL N Blood chemistry[[id number]] Glucose [Mass/volume] in Serum or Plasma [2345-7] 06/23/2025 04:06 PM 220 mg/dL N Blood chemistry[[id number]] Glucose [Mass/volume] in Serum or Plasma [2345-7] 06/23/2025 09:14 AM 144 mg/dL N Blood chemistry[[id number]] Glucose [Mass/volume] in Serum or Plasma [2345-7] 06/23/2025 11:22 AM 193 mg/dL N Blood chemistry[[id number]] Glucose [Mass/volume] in Serum or Plasma [2345-7] 06/22/2025 12:26 PM 217 mg/dL N Blood chemistry[[id number]] Glucose [Mass/volume] in Serum or Plasma [2345-7] 06/22/2025 04:24 PM 266 mg/dL N Blood chemistry[[id number]] Glucose [Mass/volume] in Serum or Plasma [2345-7] 06/22/2025 09:01 AM 251 mg/dL N Blood chemistry[[id number]] Glucose [Mass/volume] in Serum or Plasma [2345-7] 06/22/2025 10:25 AM 219 mg/dL N Blood chemistry[[id number]] Glucose [Mass/volume] in Serum or Plasma [2345-7] 06/21/2025 11:37 AM 203 mg/dL N Blood chemistry[[id number]] Glucose [Mass/volume] in Serum or Plasma [2345-7] 06/21/2025 04:24 PM 255 mg/dL N Blood chemistry[[id number]] Glucose [Mass/volume] in Serum or Plasma [2345-7] 06/21/2025 09:02 AM 204 mg/dL N Blood chemistry[[id number]] Glucose [Mass/volume] in Serum or Plasma [2345-7] 06/21/2025 12:16 PM 184 mg/dL N Blood chemistry[[id number]] Glucose [Mass/volume] in Serum or Plasma [2345-7] 06/20/2025 03:28 PM 222 mg/dL N Blood chemistry[[id number]] Glucose [Mass/volume] in Serum or Plasma [2345-7] 06/20/2025 05:51 PM 331 mg/dL N Blood chemistry[[id number]] Glucose [Mass/volume] in Serum or Plasma [2345-7] 06/20/2025 04:19 PM 331 mg/dL N Blood chemistry[[id number]] Glucose [Mass/volume] in Serum or Plasma [2345-7] 06/20/2025 01:56 PM 301 mg/dL N Blood chemistry[[id number]] Glucose [Mass/volume] in Serum or Plasma [2345-7] 06/19/2025 11:58 AM 111 mg/dL N Blood chemistry[[id number]] Glucose [Mass/volume] in Serum or Plasma [2345-7] 06/19/2025 04:56 PM 234 mg/dL N Blood chemistry[[id number]] Glucose [Mass/volume] in Serum or Plasma [2345-7] 06/19/2025 09:41 AM 143 mg/dL N Blood chemistry[[id number]] Glucose [Mass/volume] in Serum or Plasma [2345-7] 06/19/2025 12:22 PM 248 mg/dL N Blood chemistry[[id number]] Glucose [Mass/volume] in Serum or Plasma [2345-7] 06/18/2025 11:32 AM 169 mg/dL N Blood chemistry[[id number]] Glucose [Mass/volume] in Serum or Plasma [2345-7] 06/18/2025 08:04 AM 209 mg/dL N Blood chemistry[[id number]] Glucose [Mass/volume] in Serum or Plasma [2345-7] 06/18/2025 12:22 PM 135 mg/dL N Blood chemistry[[id number]] Glucose [Mass/volume] in Serum or Plasma [2345-7] 06/17/2025 12:32 PM 216 mg/dL N Blood chemistry[[id number]] Glucose [Mass/volume] in Serum or Plasma [2345-7] 06/17/2025 10:27 AM 139 mg/dL N Blood chemistry[[id number]] Glucose [Mass/volume] in Serum or Plasma [2345-7] 06/17/2025 05:48 PM 213 mg/dL N Blood chemistry[[id number]] Glucose [Mass/volume] in Serum or Plasma [2345-7] 06/17/2025 01:42 PM 170 mg/dL N Blood chemistry[[id number]] Glucose [Mass/volume] in Serum or Plasma [2345-7] 06/16/2025 12:39 PM 178 mg/dL N Blood chemistry[[id number]] Glucose [Mass/volume] in Serum or Plasma [2345-7] 06/16/2025 04:07 PM 220 mg/dL N Blood chemistry[[id number]] Glucose [Mass/volume] in Serum or Plasma [2345-7] 06/16/2025 08:43 AM 189 mg/dL N Blood chemistry[[id number]] Glucose [Mass/volume] in Serum or Plasma [2345-7] 06/16/2025 11:39 AM 194 mg/dL N Blood chemistry[[id number]] Glucose [Mass/volume] in Serum or Plasma [2345-7] 06/15/2025 11:18 AM 192 mg/dL N Blood chemistry[[id number]] Glucose [Mass/volume] in Serum or Plasma [2345-7] 06/15/2025 04:33 PM 204 mg/dL N Blood chemistry[[id number]] Glucose [Mass/volume] in Serum or Plasma [2345-7] 06/15/2025 09:13 AM 202 mg/dL N Blood chemistry[[id number]] Glucose [Mass/volume] in Serum or Plasma [2345-7] 06/15/2025 11:49 AM 220 mg/dL N Blood chemistry[[id number]] Glucose [Mass/volume] in Serum or Plasma [2345-7] 06/15/2025 05:49 PM 302 mg/dL N Blood chemistry[[id number]] Glucose [Mass/volume] in Serum or Plasma [2345-7] 06/05/2025 04:52 PM 174 mg/dL N Blood chemistry[[id number]] Glucose [Mass/volume] in Serum or Plasma [2345-7] 06/05/2025 11:39 AM 308 mg/dL N Blood chemistry[[id number]] Glucose [Mass/volume] in Serum or Plasma [2345-7] 06/05/2025 10:05 AM 203 mg/dL N Blood chemistry[[id number]] Glucose [Mass/volume] in Serum or Plasma [2345-7] 06/04/2025 05:08 PM 341 mg/dL N Blood chemistry[[id number]] Glucose [Mass/volume] in Serum or Plasma [2345-7] 06/04/2025 11:29 AM 280 mg/dL N Blood chemistry[[id number]] Glucose [Mass/volume] in Serum or Plasma [2345-7] 06/04/2025 09:51 AM 262 mg/dL N Blood chemistry[[id number]] Glucose [Mass/volume] in Serum or Plasma [2345-7] 06/03/2025 04:30 PM 270 mg/dL N Blood chemistry[[id number]] Glucose [Mass/volume] in Serum or Plasma [2345-7] 06/03/2025 12:31 PM 331 mg/dL N Blood chemistry[[id number]] Glucose [Mass/volume] in Serum or Plasma [2345-7] 06/03/2025 09:16 AM 245 mg/dL N Blood chemistry[[id number]] Glucose [Mass/volume] in Serum or Plasma [2345-7] 06/02/2025 05:00 PM 160 mg/dL N Blood chemistry[[id number]] Glucose [Mass/volume] in Serum or Plasma [2345-7] 06/02/2025 01:16 PM 261 mg/dL N Blood chemistry[[id number]] Glucose [Mass/volume] in Serum or Plasma [2345-7] 06/02/2025 09:46 AM 176 mg/dL N Blood chemistry[[id number]] Glucose [Mass/volume] in Serum or Plasma [2345-7] 06/01/2025 04:08 PM 292 mg/dL N Blood chemistry[[id number]] Glucose [Mass/volume] in Serum or Plasma [2345-7] 06/01/2025 11:39 AM 299 mg/dL N Blood chemistry[[id number]] Glucose [Mass/volume] in Serum or Plasma [2345-7] 06/01/2025 09:21 AM 186 mg/dL N Blood chemistry[[id number]] Glucose [Mass/volume] in Serum or Plasma [2345-7] 05/31/2025 04:28 PM 322 mg/dL N Blood chemistry[[id number]] Glucose [Mass/volume] in Serum or Plasma [2345-7] 05/31/2025 11:31 AM 426 mg/dL N Blood chemistry[[id number]] Glucose [Mass/volume] in Serum or Plasma [2345-7] 05/31/2025 09:31 AM 250 mg/dL N Blood chemistry[[id number]] Glucose [Mass/volume] in Serum or Plasma [2345-7] 05/30/2025 04:28 PM 340 mg/dL N Blood chemistry[[id number]] Glucose [Mass/volume] in Serum or Plasma [2345-7] 05/30/2025 11:32 AM 221 mg/dL N Blood chemistry[[id number]] Glucose [Mass/volume] in Serum or Plasma [2345-7] 05/30/2025 09:12 AM 340 mg/dL N Blood chemistry[[id number]] Glucose [Mass/volume] in Serum or Plasma [2345-7] 05/29/2025 01:22 PM 279 mg/dL N Blood chemistry[[id number]] Glucose [Mass/volume] in Serum or Plasma [2345-7] 05/29/2025 10:39 AM 187 mg/dL N Blood chemistry[[id number]] Glucose [Mass/volume] in Serum or Plasma [2345-7] 05/29/2025 06:03 AM 305 mg/dL N Blood chemistry[[id number]] Glucose [Mass/volume] in Serum or Plasma [2345-7] 05/28/2025 04:01 PM 417 mg/dL N Blood chemistry[[id number]] Glucose [Mass/volume] in Serum or Plasma [2345-7] 05/28/2025 11:59 AM 349 mg/dL N Blood chemistry[[id number]] Glucose [Mass/volume] in Serum or Plasma [2345-7] 05/28/2025 09:12 AM 290 mg/dL N Blood chemistry[[id number]] Glucose [Mass/volume] in Serum or Plasma [2345-7] 05/27/2025 04:05 PM 371 mg/dL N Blood chemistry[[id number]] Glucose [Mass/volume] in Serum or Plasma [2345-7] 05/27/2025 11:30 AM 263 mg/dL N Blood chemistry[[id number]] Glucose [Mass/volume] in Serum or Plasma [2345-7] 05/27/2025 09:09 AM 258 mg/dL N Blood chemistry[[id number]] Glucose [Mass/volume] in Serum or Plasma [2345-7] 05/26/2025 04:46 PM 437 mg/dL N Blood chemistry[[id number]] Glucose [Mass/volume] in Serum or Plasma [2345-7] 05/26/2025 11:37 AM 305 mg/dL N Blood chemistry[[id number]] Glucose [Mass/volume] in Serum or Plasma [2345-7] 05/26/2025 09:03 AM 383 mg/dL N Blood chemistry[[id number]] Glucose [Mass/volume] in Serum or Plasma [2345-7] 05/25/2025 04:08 PM 273 mg/dL N Blood chemistry[[id number]] Glucose [Mass/volume] in Serum or Plasma [2345-7] 05/25/2025 11:33 AM 251 mg/dL N Blood chemistry[[id number]] Glucose [Mass/volume] in Serum or Plasma [2345-7] 05/25/2025 09:28 AM 351 mg/dL N Blood chemistry[[id number]] Glucose [Mass/volume] in Serum or Plasma [2345-7] 05/24/2025 09:27 AM 408 mg/dL N Blood chemistry[[id number]] Glucose [Mass/volume] in Serum or Plasma [2345-7] 05/24/2025 09:11 AM 369 mg/dL N Blood chemistry[[id number]] Glucose [Mass/volume] in Serum or Plasma [2345-7] 05/24/2025 06:12 AM 509 mg/dL N Blood chemistry[[id number]] Glucose [Mass/volume] in Serum or Plasma [2345-7] 05/23/2025 05:03 PM 335 mg/dL N Blood chemistry[[id number]] Glucose [Mass/volume] in Serum or Plasma [2345-7] 05/23/2025 01:10 PM 342 mg/dL N Blood chemistry[[id number]] Glucose [Mass/volume] in Serum or Plasma [2345-7] 05/23/2025 09:20 AM 257 mg/dL N Blood chemistry[[id number]] Glucose [Mass/volume] in Serum or Plasma [2345-7] 05/22/2025 11:51 AM 269 mg/dL N Blood chemistry[[id number]] Glucose [Mass/volume] in Serum or Plasma [2345-7] 05/22/2025 09:17 AM 356 mg/dL N Blood chemistry[[id number]] Glucose [Mass/volume] in Serum or Plasma [2345-7] 05/22/2025 07:13 AM 252 mg/dL N Blood chemistry[[id number]] Glucose [Mass/volume] in Serum or Plasma [2345-7] 05/21/2025 04:48 PM 361 mg/dL N Blood chemistry[[id number]] Glucose [Mass/volume] in Serum or Plasma [2345-7] 05/21/2025 12:54 PM 297 mg/dL N Blood chemistry[[id number]] Glucose [Mass/volume] in Serum or Plasma [2345-7] 05/21/2025 09:24 AM 320 mg/dL N Blood chemistry[[id number]] Glucose [Mass/volume] in Serum or Plasma [2345-7] 05/20/2025 04:45 PM 234 mg/dL N Blood chemistry[[id number]] Glucose [Mass/volume] in Serum or Plasma [2345-7] 05/20/2025 12:17 PM 246 mg/dL N Blood chemistry[[id number]] Glucose [Mass/volume] in Serum or Plasma [2345-7] 05/20/2025 09:22 AM 252 mg/dL N Blood chemistry[[id number]] Glucose [Mass/volume] in Serum or Plasma [2345-7] 05/19/2025 04:27 PM 341 mg/dL N Blood chemistry[[id number]] Glucose [Mass/volume] in Serum or Plasma [2345-7] 05/19/2025 12:39 PM 215 mg/dL N Blood chemistry[[id number]] Glucose [Mass/volume] in Serum or Plasma [2345-7] 05/19/2025 10:19 AM 269 mg/dL N Blood chemistry[[id number]] Glucose [Mass/volume] in Serum or Plasma [2345-7] 05/18/2025 04:00 PM 268 mg/dL N Blood chemistry[[id number]] Glucose [Mass/volume] in Serum or Plasma [2345-7] 05/18/2025 11:30 AM 302 mg/dL N Blood chemistry[[id number]] Glucose [Mass/volume] in Serum or Plasma [2345-7] 05/18/2025 09:16 AM 306 mg/dL N Blood chemistry[[id number]] Glucose [Mass/volume] in Serum or Plasma [2345-7] 05/17/2025 04:11 PM 341 mg/dL N Blood chemistry[[id number]] Glucose [Mass/volume] in Serum or Plasma [2345-7] 05/17/2025 11:48 AM 295 mg/dL N Blood chemistry[[id number]] Glucose [Mass/volume] in Serum or Plasma [2345-7] 05/17/2025 09:36 AM 310 mg/dL N Blood chemistry[[id number]] Glucose [Mass/volume] in Serum or Plasma [2345-7] 05/16/2025 04:37 PM 311 mg/dL N Blood chemistry[[id number]] Glucose [Mass/volume] in Serum or Plasma [2345-7] 05/16/2025 12:06 PM 332 mg/dL N Blood chemistry[[id number]] Glucose [Mass/volume] in Serum or Plasma [2345-7] 05/16/2025 08:58 AM 308 mg/dL N Blood chemistry[[id number]] Glucose [Mass/volume] in Serum or Plasma [2345-7] 05/15/2025 05:11 PM 285 mg/dL N Blood chemistry[[id number]] Glucose [Mass/volume] in Serum or Plasma [2345-7] 05/15/2025 01:45 PM 241 mg/dL N Blood chemistry[[id number]] Glucose [Mass/volume] in Serum or Plasma [2345-7] 05/15/2025 09:26 AM 224 mg/dL N Blood chemistry[[id number]] Glucose [Mass/volume] in Serum or Plasma [2345-7] 05/14/2025 04:06 PM 359 mg/dL N Blood chemistry[[id number]] Glucose [Mass/volume] in Serum or Plasma [2345-7] 05/14/2025 11:27 AM 244 mg/dL N Blood chemistry[[id number]] Glucose [Mass/volume] in Serum or Plasma [2345-7] 05/14/2025 09:17 AM 268 mg/dL N Blood chemistry[[id number]] Glucose [Mass/volume] in Serum or Plasma [2345-7] 05/13/2025 04:17 PM 366 mg/dL N Blood chemistry[[id number]] Glucose [Mass/volume] in Serum or Plasma [2345-7] 05/13/2025 11:36 AM 246 mg/dL N Blood chemistry[[id number]] Glucose [Mass/volume] in Serum or Plasma [2345-7] 05/13/2025 10:24 AM 352 mg/dL N Blood chemistry[[id number]] Glucose [Mass/volume] in Serum or Plasma [2345-7] 05/12/2025 04:37 PM 237 mg/dL N Blood chemistry[[id number]] Glucose [Mass/volume] in Serum or Plasma [2345-7] 05/12/2025 11:57 AM 278 mg/dL N Blood chemistry[[id number]] Glucose [Mass/volume] in Serum or Plasma [2345-7] 05/12/2025 09:13 AM 263 mg/dL N Blood chemistry[[id number]] Glucose [Mass/volume] in Serum or Plasma [2345-7] 05/11/2025 04:34 PM 287 mg/dL N Blood chemistry[[id number]] Glucose [Mass/volume] in Serum or Plasma [2345-7] 05/11/2025 11:30 AM 343 mg/dL N Blood chemistry[[id number]] Glucose [Mass/volume] in Serum or Plasma [2345-7] 05/11/2025 09:40 AM 220 mg/dL N Blood chemistry[[id number]] Glucose [Mass/volume] in Serum or Plasma [2345-7] 05/10/2025 04:21 PM 209 mg/dL N Blood chemistry[[id number]] Glucose [Mass/volume] in Serum or Plasma [2345-7] 05/10/2025 12:18 PM 310 mg/dL N Blood chemistry[[id number]] Glucose [Mass/volume] in Serum or Plasma [2345-7] 05/10/2025 09:30 AM 182 mg/dL N Blood chemistry[[id number]] Glucose [Mass/volume] in Serum or Plasma [2345-7] 05/09/2025 04:38 PM 297 mg/dL N Blood chemistry[[id number]] Glucose [Mass/volume] in Serum or Plasma [2345-7] 05/09/2025 12:23 PM 196 mg/dL N Blood chemistry[[id number]] Glucose [Mass/volume] in Serum or Plasma [2345-7] 05/09/2025 09:20 AM 332 mg/dL N Blood chemistry[[id number]] Glucose [Mass/volume] in Serum or Plasma [2345-7] 05/08/2025 04:52 PM 321 mg/dL N Blood chemistry[[id number]] Glucose [Mass/volume] in Serum or Plasma [2345-7] 05/08/2025 11:46 AM 239 mg/dL N Blood chemistry[[id number]] Glucose [Mass/volume] in Serum or Plasma [2345-7] 05/08/2025 09:21 AM 267 mg/dL N Blood chemistry[[id number]] Glucose [Mass/volume] in Serum or Plasma [2345-7] 05/07/2025 05:18 PM 304 mg/dL N Blood chemistry[[id number]] Glucose [Mass/volume] in Serum or Plasma [2345-7] 05/07/2025 12:28 PM 329 mg/dL N Blood chemistry[[id number]] Glucose [Mass/volume] in Serum or Plasma [2345-7] 05/07/2025 09:02 AM 193 mg/dL N Blood chemistry[[id number]] Glucose [Mass/volume] in Serum or Plasma [2345-7] 05/06/2025 02:14 PM 268 mg/dL N Blood chemistry[[id number]] Glucose [Mass/volume] in Serum or Plasma [2345-7] 05/06/2025 09:55 AM 317 mg/dL N Blood chemistry[[id number]] Glucose [Mass/volume] in Serum or Plasma [2345-7] 05/06/2025 07:03 AM 369 mg/dL N Blood chemistry[[id number]] Glucose [Mass/volume] in Serum or Plasma [2345-7] 05/05/2025 03:46 PM 336 mg/dL N Blood chemistry[[id number]] Glucose [Mass/volume] in Serum or Plasma [2345-7] 05/05/2025 01:04 PM 260 mg/dL N Blood chemistry[[id number]] Glucose [Mass/volume] in Serum or Plasma [2345-7] 05/05/2025 10:20 AM 256 mg/dL N Blood chemistry[[id number]] Glucose [Mass/volume] in Serum or Plasma [2345-7] 05/04/2025 04:01 PM 240 mg/dL N Blood chemistry[[id number]] Glucose [Mass/volume] in Serum or Plasma [2345-7] 05/04/2025 11:40 AM 278 mg/dL N Blood chemistry[[id number]] Glucose [Mass/volume] in Serum or Plasma [2345-7] 05/04/2025 09:20 AM 182 mg/dL N Blood chemistry[[id number]] Glucose [Mass/volume] in Serum or Plasma [2345-7] 05/03/2025 05:53 PM 308 mg/dL N Blood chemistry[[id number]] Glucose [Mass/volume] in Serum or Plasma [2345-7] 05/03/2025 11:50 AM 269 mg/dL N Blood chemistry[[id number]] Glucose [Mass/volume] in Serum or Plasma [2345-7] 05/03/2025 09:20 AM 214 mg/dL N Blood chemistry[[id number]] Glucose [Mass/volume] in Serum or Plasma [2345-7] 05/02/2025 04:18 PM 292 mg/dL N Blood chemistry[[id number]] Glucose [Mass/volume] in Serum or Plasma [2345-7] 05/02/2025 11:23 AM 218 mg/dL N Blood chemistry[[id number]] Glucose [Mass/volume] in Serum or Plasma [2345-7] 05/02/2025 09:09 AM 221 mg/dL N Blood chemistry[[id number]] Glucose [Mass/volume] in Serum or Plasma [2345-7] 05/01/2025 05:34 PM 306 mg/dL N Blood chemistry[[id number]] Glucose [Mass/volume] in Serum or Plasma [2345-7] 05/01/2025 01:57 PM 421 mg/dL N Blood chemistry[[id number]] Glucose [Mass/volume] in Serum or Plasma [2345-7] 05/01/2025 10:31 AM 254 mg/dL N Blood chemistry[[id number]] Glucose [Mass/volume] in Serum or Plasma [2345-7] 04/30/2025 04:09 PM 399 mg/dL N Blood chemistry[[id number]] Glucose [Mass/volume] in Serum or Plasma [2345-7] 04/30/2025 11:17 AM 417 mg/dL N Blood chemistry[[id number]] Glucose [Mass/volume] in Serum or Plasma [2345-7] 04/30/2025 09:24 AM 303 mg/dL N Blood chemistry[[id number]] Glucose [Mass/volume] in Serum or Plasma [2345-7] 04/29/2025 04:34 PM 359 mg/dL N Blood chemistry[[id number]] Glucose [Mass/volume] in Serum or Plasma [2345-7] 04/29/2025 11:32 AM 355 mg/dL N Blood chemistry[[id number]] Glucose [Mass/volume] in Serum or Plasma [2345-7] 04/29/2025 10:11 AM 244 mg/dL N Blood chemistry[[id number]] Glucose [Mass/volume] in Serum or Plasma [2345-7] 04/28/2025 04:46 PM 491 mg/dL N Blood chemistry[[id number]] Glucose [Mass/volume] in Serum or Plasma [2345-7] 04/28/2025 11:54 AM 463 mg/dL N Blood chemistry[[id number]] Glucose [Mass/volume] in Serum or Plasma [2345-7] 04/28/2025 09:24 AM 395 mg/dL N Blood chemistry[[id number]] Glucose [Mass/volume] in Serum or Plasma [2345-7] 04/27/2025 04:14 PM 317 mg/dL N Blood chemistry[[id number]] Glucose [Mass/volume] in Serum or Plasma [2345-7] 04/27/2025 11:51 AM 263 mg/dL N Blood chemistry[[id number]] Glucose [Mass/volume] in Serum or Plasma [2345-7] 04/27/2025 09:40 AM 406 mg/dL N Blood chemistry[[id number]] Glucose [Mass/volume] in Serum or Plasma [2345-7] 04/26/2025 04:19 PM 274 mg/dL N Blood chemistry[[id number]] Glucose [Mass/volume] in Serum or Plasma [2345-7] 04/26/2025 12:04 PM 253 mg/dL N Blood chemistry[[id number]] Glucose [Mass/volume] in Serum or Plasma [2345-7] 04/26/2025 09:21 AM 329 mg/dL N Blood chemistry[[id number]] Glucose [Mass/volume] in Serum or Plasma [2345-7] 04/25/2025 05:55 PM 316 mg/dL N Blood chemistry[[id number]] Glucose [Mass/volume] in Serum or Plasma [2345-7] 04/25/2025 12:55 PM 317 mg/dL N Blood chemistry[[id number]] Glucose [Mass/volume] in Serum or Plasma [2345-7] 04/25/2025 09:54 AM 337 mg/dL N Blood chemistry[[id number]] Glucose [Mass/volume] in Serum or Plasma [2345-7] 04/24/2025 04:35 PM 328 mg/dL N Blood chemistry[[id number]] Glucose [Mass/volume] in Serum or Plasma [2345-7] 04/24/2025 11:29 AM 411 mg/dL N Blood chemistry[[id number]] Glucose [Mass/volume] in Serum or Plasma [2345-7] 04/24/2025 09:57 AM 377 mg/dL N Blood chemistry[[id number]] Glucose [Mass/volume] in Serum or Plasma [2345-7] 04/23/2025 04:13 PM 299 mg/dL N Blood chemistry[[id number]] Glucose [Mass/volume] in Serum or Plasma [2345-7] 04/23/2025 12:54 PM 328 mg/dL N Blood chemistry[[id number]] Glucose [Mass/volume] in Serum or Plasma [2345-7] 04/23/2025 10:40 AM 285 mg/dL N Blood chemistry[[id number]] Glucose [Mass/volume] in Serum or Plasma [2345-7] 04/22/2025 05:25 PM 393 mg/dL N Blood chemistry[[id number]] Glucose [Mass/volume] in Serum or Plasma [2345-7] 04/22/2025 12:59 PM 226 mg/dL N Blood chemistry[[id number]] Glucose [Mass/volume] in Serum or Plasma [2345-7] 04/22/2025 10:00 AM 267 mg/dL N Blood chemistry[[id number]] Glucose [Mass/volume] in Serum or Plasma [2345-7] 04/21/2025 05:16 PM 326 mg/dL N Blood chemistry[[id number]] Glucose [Mass/volume] in Serum or Plasma [2345-7] 04/21/2025 12:32 PM 226 mg/dL N Blood chemistry[[id number]] Glucose [Mass/volume] in Serum or Plasma [2345-7] 04/21/2025 10:05 AM 297 mg/dL N Blood chemistry[[id number]] Glucose [Mass/volume] in Serum or Plasma [2345-7] 04/20/2025 04:06 PM 328 mg/dL N Blood chemistry[[id number]] Glucose [Mass/volume] in Serum or Plasma [2345-7] 04/20/2025 11:40 AM 258 mg/dL N Blood chemistry[[id number]] Glucose [Mass/volume] in Serum or Plasma [2345-7] 04/20/2025 09:02 AM 252 mg/dL N Blood chemistry[[id number]] Glucose [Mass/volume] in Serum or Plasma [2345-7] 04/19/2025 04:15 PM 329 mg/dL N Blood chemistry[[id number]] Glucose [Mass/volume] in Serum or Plasma [2345-7] 04/19/2025 11:52 AM 310 mg/dL N Blood chemistry[[id number]] Glucose [Mass/volume] in Serum or Plasma [2345-7] 04/19/2025 09:09 AM 291 mg/dL N Blood chemistry[[id number]] Glucose [Mass/volume] in Serum or Plasma [2345-7] 04/18/2025 04:50 PM 402 mg/dL N Blood chemistry[[id number]] Glucose [Mass/volume] in Serum or Plasma [2345-7] 04/18/2025 11:34 AM 311 mg/dL N Blood chemistry[[id number]] Glucose [Mass/volume] in Serum or Plasma [2345-7] 04/18/2025 09:11 AM 387 mg/dL N Blood chemistry[[id number]] Glucose [Mass/volume] in Serum or Plasma [2345-7] 04/17/2025 03:51 PM 383 mg/dL N Blood chemistry[[id number]] Glucose [Mass/volume] in Serum or Plasma [2345-7] 04/17/2025 12:39 PM 356 mg/dL N Blood chemistry[[id number]] Glucose [Mass/volume] in Serum or Plasma [2345-7] 04/17/2025 09:31 AM 324 mg/dL N Blood chemistry[[id number]] Glucose [Mass/volume] in Serum or Plasma [2345-7] 04/16/2025 11:43 AM 327 mg/dL N Blood chemistry[[id number]] Glucose [Mass/volume] in Serum or Plasma [2345-7] 04/16/2025 08:59 AM 350 mg/dL N Blood chemistry[[id number]] Glucose [Mass/volume] in Serum or Plasma [2345-7] 04/16/2025 06:09 AM 341 mg/dL N Blood chemistry[[id number]] Glucose [Mass/volume] in Serum or Plasma [2345-7] 04/15/2025 05:48 PM 212 mg/dL N Blood chemistry[[id number]] Glucose [Mass/volume] in Serum or Plasma [2345-7] 04/15/2025 11:43 AM 422 mg/dL N Blood chemistry[[id number]] Glucose [Mass/volume] in Serum or Plasma [2345-7] 04/15/2025 09:00 AM 316 mg/dL N Blood chemistry[[id number]] Glucose [Mass/volume] in Serum or Plasma [2345-7] 04/15/2025 06:23 AM 392 mg/dL N Blood chemistry[[id number]] Glucose [Mass/volume] in Serum or Plasma [2345-7] 04/10/2025 05:44 PM 293 mg/dL N Blood chemistry[[id number]] Glucose [Mass/volume] in Serum or Plasma [2345-7] 04/10/2025 12:05 PM 195 mg/dL N Blood chemistry[[id number]] Glucose [Mass/volume] in Serum or Plasma [2345-7] 04/09/2025 04:06 PM 246 mg/dL N Blood chemistry[[id number]] Glucose [Mass/volume] in Serum or Plasma [2345-7] 04/09/2025 02:04 PM 202 mg/dL N Blood chemistry[[id number]] Glucose [Mass/volume] in Serum or Plasma [2345-7] 04/09/2025 10:42 AM 213 mg/dL N Blood chemistry[[id number]] Glucose [Mass/volume] in Serum or Plasma [2345-7] 04/09/2025 09:04 AM 231 mg/dL N Blood chemistry[[id number]] Glucose [Mass/volume] in Serum or Plasma [2345-7] 04/08/2025 04:55 PM 273 mg/dL N Blood chemistry[[id number]] Glucose [Mass/volume] in Serum or Plasma [2345-7] 04/08/2025 01:46 PM 175 mg/dL N Blood chemistry[[id number]] Glucose [Mass/volume] in Serum or Plasma [2345-7] 04/08/2025 10:53 AM 243 mg/dL N Blood chemistry[[id number]] Glucose [Mass/volume] in Serum or Plasma [2345-7] 04/08/2025 10:37 AM 177 mg/dL N Blood chemistry[[id number]] Glucose [Mass/volume] in Serum or Plasma [2345-7] 04/07/2025 04:50 PM 229 mg/dL N Blood chemistry[[id number]] Glucose [Mass/volume] in Serum or Plasma [2345-7] 04/07/2025 04:47 PM 229 mg/dL N Blood chemistry[[id number]] Glucose [Mass/volume] in Serum or Plasma [2345-7] 04/07/2025 01:34 PM 182 mg/dL N Blood chemistry[[id number]] Glucose [Mass/volume] in Serum or Plasma [2345-7] 04/07/2025 01:27 PM 182 mg/dL N Blood chemistry[[id number]] Glucose [Mass/volume] in Serum or Plasma [2345-7] 04/07/2025 01:26 PM 257 mg/dL N Blood chemistry[[id number]] Glucose [Mass/volume] in Serum or Plasma [2345-7] 04/07/2025 10:19 AM 226 mg/dL N Blood chemistry[[id number]] Glucose [Mass/volume] in Serum or Plasma [2345-7] 04/07/2025 10:13 AM 226 mg/dL N Blood chemistry[[id number]] Glucose [Mass/volume] in Serum or Plasma [2345-7] 04/06/2025 04:11 PM 353 mg/dL N Blood chemistry[[id number]] Glucose [Mass/volume] in Serum or Plasma [2345-7] 04/06/2025 12:21 PM 230 mg/dL N Blood chemistry[[id number]] Glucose [Mass/volume] in Serum or Plasma [2345-7] 04/06/2025 11:44 AM 267 mg/dL N Blood chemistry[[id number]] Glucose [Mass/volume] in Serum or Plasma [2345-7] 04/06/2025 09:04 AM 278 mg/dL N Blood chemistry[[id number]] Glucose [Mass/volume] in Serum or Plasma [2345-7] 04/05/2025 03:55 PM 302 mg/dL N Blood chemistry[[id number]] Glucose [Mass/volume] in Serum or Plasma [2345-7] 04/05/2025 12:04 PM 245 mg/dL N Blood chemistry[[id number]] Glucose [Mass/volume] in Serum or Plasma [2345-7] 04/05/2025 11:33 AM 292 mg/dL N Blood chemistry[[id number]] Glucose [Mass/volume] in Serum or Plasma [2345-7] 04/05/2025 09:09 AM 237 mg/dL N Blood chemistry[[id number]] Glucose [Mass/volume] in Serum or Plasma [2345-7] 04/04/2025 04:33 PM 357 mg/dL N Blood chemistry[[id number]] Glucose [Mass/volume] in Serum or Plasma [2345-7] 04/04/2025 12:09 PM 279 mg/dL N Blood chemistry[[id number]] Glucose [Mass/volume] in Serum or Plasma [2345-7] 04/04/2025 11:29 AM 250 mg/dL N Blood chemistry[[id number]] Glucose [Mass/volume] in Serum or Plasma [2345-7] 04/04/2025 09:18 AM 239 mg/dL N Blood chemistry[[id number]] Glucose [Mass/volume] in Serum or Plasma [2345-7] 04/03/2025 05:35 PM 318 mg/dL N Blood chemistry[[id number]] Glucose [Mass/volume] in Serum or Plasma [2345-7] 04/03/2025 01:19 PM 215 mg/dL N Blood chemistry[[id number]] Glucose [Mass/volume] in Serum or Plasma [2345-7] 04/03/2025 12:19 PM 250 mg/dL N Blood chemistry[[id number]] Glucose [Mass/volume] in Serum or Plasma [2345-7] 04/03/2025 10:42 AM 271 mg/dL N Blood chemistry[[id number]] Glucose [Mass/volume] in Serum or Plasma [2345-7] 04/03/2025 10:05 AM 271 mg/dL N Blood chemistry[[id number]] Glucose [Mass/volume] in Serum or Plasma [2345-7] 04/02/2025 04:09 PM 261 mg/dL N Blood chemistry[[id number]] Glucose [Mass/volume] in Serum or Plasma [2345-7] 04/02/2025 02:03 PM 374 mg/dL N Blood chemistry[[id number]] Glucose [Mass/volume] in Serum or Plasma [2345-7] 04/02/2025 11:37 AM 250 mg/dL N Blood chemistry[[id number]] Glucose [Mass/volume] in Serum or Plasma [2345-7] 04/02/2025 08:34 AM 283 mg/dL N Blood chemistry[[id number]] Glucose [Mass/volume] in Serum or Plasma [2345-7] 04/01/2025 04:31 PM 237 mg/dL N Blood chemistry[[id number]] Glucose [Mass/volume] in Serum or Plasma [2345-7] 04/01/2025 01:00 PM 278 mg/dL N Blood chemistry[[id number]] Glucose [Mass/volume] in Serum or Plasma [2345-7] 04/01/2025 11:41 AM 231 mg/dL N Blood chemistry[[id number]] Glucose [Mass/volume] in Serum or Plasma [2345-7] 04/01/2025 09:36 AM 262 mg/dL N Blood chemistry[[id number]] Glucose [Mass/volume] in Serum or Plasma [2345-7] 04/01/2025 09:15 AM 262 mg/dL N Blood chemistry[[id number]] Glucose [Mass/volume] in Serum or Plasma [2345-7] 03/31/2025 01:13 PM 389 mg/dL N Blood chemistry[[id number]] Glucose [Mass/volume] in Serum or Plasma [2345-7] 03/31/2025 11:50 AM 220 mg/dL N Blood chemistry[[id number]] Glucose [Mass/volume] in Serum or Plasma [2345-7] 03/31/2025 09:26 AM 337 mg/dL N Blood chemistry[[id number]] Glucose [Mass/volume] in Serum or Plasma [2345-7] 03/30/2025 04:32 PM 281 mg/dL N Blood chemistry[[id number]] Glucose [Mass/volume] in Serum or Plasma [2345-7] 03/30/2025 01:32 PM 241 mg/dL N Blood chemistry[[id number]] Glucose [Mass/volume] in Serum or Plasma [2345-7] 03/30/2025 12:13 PM 231 mg/dL N Blood chemistry[[id number]] Glucose [Mass/volume] in Serum or Plasma [2345-7] 03/30/2025 09:35 AM 283 mg/dL N Blood chemistry[[id number]] Glucose [Mass/volume] in Serum or Plasma [2345-7] 03/29/2025 05:38 PM 267 mg/dL N Blood chemistry[[id number]] Glucose [Mass/volume] in Serum or Plasma [2345-7] 03/29/2025 03:16 PM 253 mg/dL N Blood chemistry[[id number]] Glucose [Mass/volume] in Serum or Plasma [2345-7] 03/29/2025 12:33 PM 332 mg/dL N Blood chemistry[[id number]] Glucose [Mass/volume] in Serum or Plasma [2345-7] 03/29/2025 11:39 AM 326 mg/dL N Blood chemistry[[id number]] Glucose [Mass/volume] in Serum or Plasma [2345-7] 03/28/2025 05:28 PM 258 mg/dL N Blood chemistry[[id number]] Glucose [Mass/volume] in Serum or Plasma [2345-7] 03/28/2025 01:11 PM 328 mg/dL N Blood chemistry[[id number]] Glucose [Mass/volume] in Serum or Plasma [2345-7] 03/28/2025 12:45 PM 328 mg/dL N Blood chemistry[[id number]] Glucose [Mass/volume] in Serum or Plasma [2345-7] 03/28/2025 11:52 AM 234 mg/dL N Blood chemistry[[id number]] Glucose [Mass/volume] in Serum or Plasma [2345-7] 03/28/2025 10:07 AM 264 mg/dL N Blood chemistry[[id number]] Glucose [Mass/volume] in Serum or Plasma [2345-7] 03/27/2025 05:33 PM 286 mg/dL N Blood chemistry[[id number]] Glucose [Mass/volume] in Serum or Plasma [2345-7] 03/27/2025 12:18 PM 312 mg/dL N Blood chemistry[[id number]] Glucose [Mass/volume] in Serum or Plasma [2345-7] 03/27/2025 11:40 AM 263 mg/dL N Blood chemistry[[id number]] Glucose [Mass/volume] in Serum or Plasma [2345-7] 03/27/2025 09:10 AM 210 mg/dL N Blood chemistry[[id number]] Glucose [Mass/volume] in Serum or Plasma [2345-7] 03/26/2025 03:56 PM 331 mg/dL N Blood chemistry[[id number]] Glucose [Mass/volume] in Serum or Plasma [2345-7] 03/26/2025 01:56 PM 341 mg/dL N Blood chemistry[[id number]] Glucose [Mass/volume] in Serum or Plasma [2345-7] 03/26/2025 12:07 PM 281 mg/dL N Blood chemistry[[id number]] Glucose [Mass/volume] in Serum or Plasma [2345-7] 03/26/2025 10:39 AM 341 mg/dL N Blood chemistry[[id number]] Glucose [Mass/volume] in Serum or Plasma [2345-7] 03/26/2025 10:15 AM 287 mg/dL N Blood chemistry[[id number]] Glucose [Mass/volume] in Serum or Plasma [2345-7] 03/26/2025 08:21 AM 287 mg/dL N Blood chemistry[[id number]] Glucose [Mass/volume] in Serum or Plasma [2345-7] 03/25/2025 04:12 PM 389 mg/dL N Blood chemistry[[id number]] Glucose [Mass/volume] in Serum or Plasma [2345-7] 03/25/2025 02:04 PM 194 mg/dL N Blood chemistry[[id number]] Glucose [Mass/volume] in Serum or Plasma [2345-7] 03/25/2025 01:02 PM 261 mg/dL N Blood chemistry[[id number]] Glucose [Mass/volume] in Serum or Plasma [2345-7] 03/25/2025 12:15 PM 251 mg/dL N Blood chemistry[[id number]] Glucose [Mass/volume] in Serum or Plasma [2345-7] 03/25/2025 09:22 AM 203 mg/dL N Blood chemistry[[id number]] Glucose [Mass/volume] in Serum or Plasma [2345-7] 03/24/2025 04:04 PM 374 mg/dL N Blood chemistry[[id number]] Glucose [Mass/volume] in Serum or Plasma [2345-7] 03/24/2025 03:39 PM 374 mg/dL N Blood chemistry[[id number]] Glucose [Mass/volume] in Serum or Plasma [2345-7] 03/24/2025 11:48 AM 165 mg/dL N Blood chemistry[[id number]] Glucose [Mass/volume] in Serum or Plasma [2345-7] 03/24/2025 09:56 AM 287 mg/dL N Blood chemistry[[id number]] Glucose [Mass/volume] in Serum or Plasma [2345-7] 03/24/2025 08:53 AM 271 mg/dL N Blood chemistry[[id number]] Glucose [Mass/volume] in Serum or Plasma [2345-7] 03/23/2025 04:28 PM 220 mg/dL N Blood chemistry[[id number]] Glucose [Mass/volume] in Serum or Plasma [2345-7] 03/23/2025 12:01 PM 262 mg/dL N Blood chemistry[[id number]] Glucose [Mass/volume] in Serum or Plasma [2345-7] 03/23/2025 11:24 AM 169 mg/dL N Blood chemistry[[id number]] Glucose [Mass/volume] in Serum or Plasma [2345-7] 03/23/2025 08:47 AM 167 mg/dL N Blood chemistry[[id number]] Glucose [Mass/volume] in Serum or Plasma [2345-7] 03/23/2025 06:02 AM 224 mg/dL N Blood chemistry[[id number]] Glucose [Mass/volume] in Serum or Plasma [2345-7] 03/22/2025 03:28 PM 272 mg/dL N Blood chemistry[[id number]] Glucose [Mass/volume] in Serum or Plasma [2345-7] 03/22/2025 11:10 AM 212 mg/dL N Blood chemistry[[id number]] Glucose [Mass/volume] in Serum or Plasma [2345-7] 03/22/2025 08:29 AM 186 mg/dL N Blood chemistry[[id number]] Glucose [Mass/volume] in Serum or Plasma [2345-7] 03/21/2025 03:38 PM 249 mg/dL N Blood chemistry[[id number]] Glucose [Mass/volume] in Serum or Plasma [2345-7] 03/21/2025 12:45 PM 236 mg/dL N Blood chemistry[[id number]] Glucose [Mass/volume] in Serum or Plasma [2345-7] 03/21/2025 12:15 PM 172 mg/dL N Blood chemistry[[id number]] Glucose [Mass/volume] in Serum or Plasma [2345-7] 03/21/2025 09:36 AM 168 mg/dL N Blood chemistry[[id number]] Glucose [Mass/volume] in Serum or Plasma [2345-7] 03/21/2025 08:54 AM 234 mg/dL N Blood chemistry[[id number]] Glucose [Mass/volume] in Serum or Plasma [2345-7] 03/20/2025 05:22 PM 241 mg/dL N Blood chemistry[[id number]] Glucose [Mass/volume] in Serum or Plasma [2345-7] 03/20/2025 05:17 PM 241 mg/dL N Blood chemistry[[id number]] Glucose [Mass/volume] in Serum or Plasma [2345-7] 03/20/2025 12:07 PM 182 mg/dL N Blood chemistry[[id number]] Glucose [Mass/volume] in Serum or Plasma [2345-7] 03/20/2025 10:17 AM 242 mg/dL N Blood chemistry[[id number]] Glucose [Mass/volume] in Serum or Plasma [2345-7] 03/20/2025 09:19 AM 242 mg/dL N Blood chemistry[[id number]] Glucose [Mass/volume] in Serum or Plasma [2345-7] 03/19/2025 04:28 PM 226 mg/dL N Blood chemistry[[id number]] Glucose [Mass/volume] in Serum or Plasma [2345-7] 03/19/2025 04:04 PM 210 mg/dL N Glucose [Mass/volume] in Serum or Plasma [2345-7] 03/19/2025 04:04 PM 210 mg/dL N Blood chemistry[[id number]] Glucose [Mass/volume] in Serum or Plasma [2345-7] 03/19/2025 01:57 PM 181 mg/dL N Blood chemistry[[id number]] Glucose [Mass/volume] in Serum or Plasma [2345-7] 03/19/2025 11:45 AM 181 mg/dL N Blood chemistry[[id number]] Glucose [Mass/volume] in Serum or Plasma [2345-7] 03/19/2025 10:24 AM 267 mg/dL N Blood chemistry[[id number]] Glucose [Mass/volume] in Serum or Plasma [2345-7] 03/18/2025 03:53 PM 250 mg/dL N Blood chemistry[[id number]] Glucose [Mass/volume] in Serum or Plasma [2345-7] 03/18/2025 02:40 PM 167 mg/dL N Blood chemistry[[id number]] Glucose [Mass/volume] in Serum or Plasma [2345-7] 03/18/2025 01:15 PM 239 mg/dL N Blood chemistry[[id number]] Glucose [Mass/volume] in Serum or Plasma [2345-7] 03/18/2025 11:46 AM 239 mg/dL N Blood chemistry[[id number]] Glucose [Mass/volume] in Serum or Plasma [2345-7] 03/18/2025 09:26 AM 253 mg/dL N Blood chemistry[[id number]] Glucose [Mass/volume] in Serum or Plasma [2345-7] 03/18/2025 06:07 AM 315 mg/dL N Blood chemistry[[id number]] Glucose [Mass/volume] in Serum or Plasma [2345-7] 03/17/2025 05:21 PM 218 mg/dL N Blood chemistry[[id number]] Glucose [Mass/volume] in Serum or Plasma [2345-7] 03/17/2025 01:13 PM 216 mg/dL N Blood chemistry[[id number]] Glucose [Mass/volume] in Serum or Plasma [2345-7] 03/17/2025 10:38 AM 235 mg/dL N Blood chemistry[[id number]] Glucose [Mass/volume] in Serum or Plasma [2345-7] 03/16/2025 01:32 PM 287 mg/dL N Blood chemistry[[id number]] Glucose [Mass/volume] in Serum or Plasma [2345-7] 02/06/2025 05:39 PM 204 mg/dL N Blood chemistry[[id number]] Glucose [Mass/volume] in Serum or Plasma [2345-7] 02/06/2025 09:47 AM 199 mg/dL N Blood chemistry[[id number]] Glucose [Mass/volume] in Serum or Plasma [2345-7] 02/06/2025 01:18 PM 147 mg/dL N Blood chemistry[[id number]] Glucose [Mass/volume] in Serum or Plasma [2345-7] 02/05/2025 01:07 PM 264 mg/dL N Blood chemistry[[id number]] Glucose [Mass/volume] in Serum or Plasma [2345-7] 02/05/2025 03:58 PM 251 mg/dL N Blood chemistry[[id number]] Glucose [Mass/volume] in Serum or Plasma [2345-7] 02/05/2025 09:28 AM 231 mg/dL N Blood chemistry[[id number]] Glucose [Mass/volume] in Serum or Plasma [2345-7] 02/05/2025 11:24 AM 207 mg/dL N Blood chemistry[[id number]] Glucose [Mass/volume] in Serum or Plasma [2345-7] 02/04/2025 12:58 PM 255 mg/dL N Blood chemistry[[id number]] Glucose [Mass/volume] in Serum or Plasma [2345-7] 02/04/2025 04:34 PM 280 mg/dL N Blood chemistry[[id number]] Glucose [Mass/volume] in Serum or Plasma [2345-7] 02/04/2025 09:16 AM 252 mg/dL N Blood chemistry[[id number]] Glucose [Mass/volume] in Serum or Plasma [2345-7] 02/04/2025 11:47 AM 177 mg/dL N Blood chemistry[[id number]] Glucose [Mass/volume] in Serum or Plasma [2345-7] 02/03/2025 12:37 PM 274 mg/dL N Blood chemistry[[id number]] Glucose [Mass/volume] in Serum or Plasma [2345-7] 02/03/2025 04:21 PM 265 mg/dL N Blood chemistry[[id number]] Glucose [Mass/volume] in Serum or Plasma [2345-7] 02/03/2025 09:29 AM 262 mg/dL N Blood chemistry[[id number]] Glucose [Mass/volume] in Serum or Plasma [2345-7] 02/03/2025 11:12 AM 263 mg/dL N Blood chemistry[[id number]] Glucose [Mass/volume] in Serum or Plasma [2345-7] 02/02/2025 01:06 PM 279 mg/dL N Blood chemistry[[id number]] Glucose [Mass/volume] in Serum or Plasma [2345-7] 02/02/2025 04:15 PM 229 mg/dL N Blood chemistry[[id number]] Glucose [Mass/volume] in Serum or Plasma [2345-7] 02/02/2025 09:47 AM 306 mg/dL N Blood chemistry[[id number]] Glucose [Mass/volume] in Serum or Plasma [2345-7] 02/02/2025 11:22 AM 208 mg/dL N Blood chemistry[[id number]] Glucose [Mass/volume] in Serum or Plasma [2345-7] 02/01/2025 12:17 PM 223 mg/dL N Blood chemistry[[id number]] Glucose [Mass/volume] in Serum or Plasma [2345-7] 02/01/2025 04:44 PM 268 mg/dL N Blood chemistry[[id number]] Glucose [Mass/volume] in Serum or Plasma [2345-7] 02/01/2025 11:03 AM 212 mg/dL N Blood chemistry[[id number]] Glucose [Mass/volume] in Serum or Plasma [2345-7] 01/31/2025 02:13 PM 243 mg/dL N Blood chemistry[[id number]] Glucose [Mass/volume] in Serum or Plasma [2345-7] 01/31/2025 04:50 PM 270 mg/dL N Blood chemistry[[id number]] Glucose [Mass/volume] in Serum or Plasma [2345-7] 01/31/2025 09:30 AM 252 mg/dL N Blood chemistry[[id number]] Glucose [Mass/volume] in Serum or Plasma [2345-7] 01/31/2025 12:47 PM 182 mg/dL N Blood chemistry[[id number]] Glucose [Mass/volume] in Serum or Plasma [2345-7] 01/31/2025 08:01 AM 196 mg/dL N Blood chemistry[[id number]] Glucose [Mass/volume] in Serum or Plasma [2345-7] 01/30/2025 04:31 PM 230 mg/dL N Blood chemistry[[id number]] Glucose [Mass/volume] in Serum or Plasma [2345-7] 01/30/2025 09:23 AM 243 mg/dL N Blood chemistry[[id number]] Glucose [Mass/volume] in Serum or Plasma [2345-7] 01/30/2025 12:05 PM 213 mg/dL N Blood chemistry[] Glucose [Mass/volume] in Serum or Plasma [2345-7] 01/29/2025 01:49 PM 278 mg/dL N Blood chemistry[[id number]] Glucose [Mass/volume] in Serum or Plasma [2345-7] 01/29/2025 10:40 AM 201 mg/dL N Blood chemistry[[id number]] Glucose [Mass/volume] in Serum or Plasma [2345-7] 01/29/2025 05:07 PM 287 mg/dL N Blood chemistry[[id number]] Glucose [Mass/volume] in Serum or Plasma [2345-7] 01/29/2025 01:36 PM 199 mg/dL N Blood chemistry[[id number]] Glucose [Mass/volume] in Serum or Plasma [2345-7] 01/28/2025 02:28 PM 204 mg/dL N Blood chemistry[[id number]] Glucose [Mass/volume] in Serum or Plasma [2345-7] 01/28/2025 04:35 PM 293 mg/dL N Blood chemistry[[id number]] Glucose [Mass/volume] in Serum or Plasma [2345-7] 01/28/2025 10:07 AM 232 mg/dL N Blood chemistry[[id number]] Glucose [Mass/volume] in Serum or Plasma [2345-7] 01/28/2025 01:30 PM 231 mg/dL N Blood chemistry[[id number]] Glucose [Mass/volume] in Serum or Plasma [2345-7] 01/27/2025 01:57 PM 289 mg/dL N Blood chemistry[[id number]] Glucose [Mass/volume] in Serum or Plasma [2345-7] 01/27/2025 05:11 PM 320 mg/dL N Blood chemistry[] Glucose [Mass/volume] in Serum or Plasma [2345-7] 01/27/2025 09:50 AM 211 mg/dL N Blood chemistry[[id number]] Glucose [Mass/volume] in Serum or Plasma [2345-7] 01/27/2025 12:50 PM 256 mg/dL N Blood chemistry[] Glucose [Mass/volume] in Serum or Plasma [2345-7] 01/26/2025 12:40 PM 292 mg/dL N Blood chemistry[] Glucose [Mass/volume] in Serum or Plasma [2345-7] 01/26/2025 04:26 PM 262 mg/dL N Blood chemistry[] Glucose [Mass/volume] in Serum or Plasma [2345-7] 01/26/2025 09:09 AM 263 mg/dL N Blood chemistry[] Glucose [Mass/volume] in Serum or Plasma [2345-7] 01/26/2025 11:30 AM 232 mg/dL N Blood chemistry[] Glucose [Mass/volume] in Serum or Plasma [2345-7] 01/25/2025 02:51 PM 261 mg/dL N Blood chemistry[[id number]] Glucose [Mass/volume] in Serum or Plasma [2345-7] 01/25/2025 04:20 PM 290 mg/dL N Blood chemistry[[id number]] Glucose [Mass/volume] in Serum or Plasma [2345-7] 01/25/2025 09:17 AM 250 mg/dL N Blood chemistry[] Glucose [Mass/volume] in Serum or Plasma [2345-7] 01/25/2025 11:24 AM 286 mg/dL N Blood chemistry[[id number]] Glucose [Mass/volume] in Serum or Plasma [2345-7] 01/24/2025 12:59 PM 232 mg/dL N Blood chemistry[[id number]] Glucose [Mass/volume] in Serum or Plasma [2345-7] 01/24/2025 04:09 PM 220 mg/dL N Blood chemistry[[id number]] Glucose [Mass/volume] in Serum or Plasma [2345-7] 01/24/2025 09:13 AM 236 mg/dL N Blood chemistry[[id number]] Glucose [Mass/volume] in Serum or Plasma [2345-7] 01/24/2025 12:02 PM 200 mg/dL N Blood chemistry[[id number]] Glucose [Mass/volume] in Serum or Plasma [2345-7] 01/23/2025 11:57 AM 235 mg/dL N Blood chemistry[[id number]] Glucose [Mass/volume] in Serum or Plasma [2345-7] 01/23/2025 04:32 PM 204 mg/dL N Blood chemistry[[id number]] Glucose [Mass/volume] in Serum or Plasma [2345-7] 01/23/2025 09:27 AM 193 mg/dL N Blood chemistry[[id number]] Glucose [Mass/volume] in Serum or Plasma [2345-7] 01/23/2025 12:33 PM 199 mg/dL N Blood chemistry[[id number]] Glucose [Mass/volume] in Serum or Plasma [2345-7] 01/22/2025 01:42 PM 180 mg/dL N Blood chemistry[[id number]] Glucose [Mass/volume] in Serum or Plasma [2345-7] 01/22/2025 04:08 PM 246 mg/dL N Blood chemistry[[id number]] Glucose [Mass/volume] in Serum or Plasma [2345-7] 01/22/2025 09:01 AM 193 mg/dL N Blood chemistry[[id number]] Glucose [Mass/volume] in Serum or Plasma [2345-7] 01/22/2025 11:26 AM 194 mg/dL N Blood chemistry[[id number]] Glucose [Mass/volume] in Serum or Plasma [2345-7] 01/21/2025 01:27 PM 226 mg/dL N Blood chemistry[[id number]] Glucose [Mass/volume] in Serum or Plasma [2345-7] 01/21/2025 04:16 PM 212 mg/dL N Blood chemistry[[id number]] Glucose [Mass/volume] in Serum or Plasma [2345-7] 01/21/2025 09:12 AM 187 mg/dL N Blood chemistry[[id number]] Glucose [Mass/volume] in Serum or Plasma [2345-7] 01/21/2025 11:24 AM 181 mg/dL N Blood chemistry[[id number]] Glucose [Mass/volume] in Serum or Plasma [2345-7] 01/20/2025 01:15 PM 209 mg/dL N Blood chemistry[[id number]] Glucose [Mass/volume] in Serum or Plasma [2345-7] 01/20/2025 04:17 PM 250 mg/dL N Blood chemistry[[id number]] Glucose [Mass/volume] in Serum or Plasma [2345-7] 01/20/2025 09:23 AM 228 mg/dL N Blood chemistry[[id number]] Glucose [Mass/volume] in Serum or Plasma [2345-7] 01/20/2025 11:38 AM 179 mg/dL N Blood chemistry[[id number]] Glucose [Mass/volume] in Serum or Plasma [2345-7] 01/19/2025 01:30 PM 335 mg/dL N Blood chemistry[[id number]] Glucose [Mass/volume] in Serum or Plasma [2345-7] 01/19/2025 04:32 PM 222 mg/dL N Blood chemistry[[id number]] Glucose [Mass/volume] in Serum or Plasma [2345-7] 01/19/2025 09:24 AM 284 mg/dL N Blood chemistry[[id number]] Glucose [Mass/volume] in Serum or Plasma [2345-7] 01/19/2025 11:36 AM 166 mg/dL N Blood chemistry[[id number]] Glucose [Mass/volume] in Serum or Plasma [2345-7] 01/18/2025 03:56 PM 194 mg/dL N Blood chemistry[[id number]] Glucose [Mass/volume] in Serum or Plasma [2345-7] 01/18/2025 05:21 PM 178 mg/dL N Blood chemistry[[id number]] Glucose [Mass/volume] in Serum or Plasma [2345-7] 01/18/2025 09:43 AM 183 mg/dL N Blood chemistry[[id number]] Glucose [Mass/volume] in Serum or Plasma [2345-7] 01/18/2025 11:25 AM 156 mg/dL N Blood chemistry[[id number]] Glucose [Mass/volume] in Serum or Plasma [2345-7] 01/17/2025 01:33 PM 169 mg/dL N Blood chemistry[[id number]] Glucose [Mass/volume] in Serum or Plasma [2345-7] 01/17/2025 04:53 PM 200 mg/dL N Blood chemistry[[id number]] Glucose [Mass/volume] in Serum or Plasma [2345-7] 01/17/2025 09:01 AM 229 mg/dL N Blood chemistry[[id number]] Glucose [Mass/volume] in Serum or Plasma [2345-7] 01/17/2025 01:40 PM 180 mg/dL N Blood chemistry[[id number]] Glucose [Mass/volume] in Serum or Plasma [2345-7] 01/16/2025 11:40 AM 173 mg/dL N Blood chemistry[[id number]] Glucose [Mass/volume] in Serum or Plasma [2345-7] 01/16/2025 05:58 PM 198 mg/dL N Blood chemistry[[id number]] Glucose [Mass/volume] in Serum or Plasma [2345-7] 01/16/2025 09:41 AM 199 mg/dL N Blood chemistry[[id number]] Glucose [Mass/volume] in Serum or Plasma [2345-7] 01/16/2025 12:20 PM 187 mg/dL N Blood chemistry[[id number]] Glucose [Mass/volume] in Serum or Plasma [2345-7] 01/15/2025 01:57 PM 171 mg/dL N Blood chemistry[[id number]] Glucose [Mass/volume] in Serum or Plasma [2345-7] 01/15/2025 04:33 PM 220 mg/dL N Blood chemistry[[id number]] Glucose [Mass/volume] in Serum or Plasma [2345-7] 01/15/2025 09:24 AM 204 mg/dL N Blood chemistry[[id number]] Glucose [Mass/volume] in Serum or Plasma [2345-7] 01/15/2025 11:49 AM 170 mg/dL N Blood chemistry[[id number]] Glucose [Mass/volume] in Serum or Plasma [2345-7] 01/14/2025 02:42 PM 174 mg/dL N Blood chemistry[[id number]] Glucose [Mass/volume] in Serum or Plasma [2345-7] 01/14/2025 03:57 PM 233 mg/dL N Blood chemistry[[id number]] Glucose [Mass/volume] in Serum or Plasma [2345-7] 01/14/2025 09:21 AM 232 mg/dL N Blood chemistry[[id number]] Glucose [Mass/volume] in Serum or Plasma [2345-7] 01/14/2025 12:00 PM 126 mg/dL N Blood chemistry[[id number]] Glucose [Mass/volume] in Serum or Plasma [2345-7] 01/13/2025 04:03 PM 151 mg/dL N Blood chemistry[[id number]] Glucose [Mass/volume] in Serum or Plasma [2345-7] 01/13/2025 04:04 PM 233 mg/dL N Blood chemistry[[id number]] Glucose [Mass/volume] in Serum or Plasma [2345-7] 01/13/2025 09:33 AM 166 mg/dL N Blood chemistry[[id number]] Glucose [Mass/volume] in Serum or Plasma [2345-7] 01/13/2025 12:55 PM 179 mg/dL N Blood chemistry[[id number]] Glucose [Mass/volume] in Serum or Plasma [2345-7] 01/12/2025 01:41 PM 271 mg/dL N Blood chemistry[[id number]] Glucose [Mass/volume] in Serum or Plasma [2345-7] 01/12/2025 04:28 PM 239 mg/dL N Blood chemistry[[id number]] Glucose [Mass/volume] in Serum or Plasma [2345-7] 01/12/2025 09:00 AM 248 mg/dL N Blood chemistry[[id number]] Glucose [Mass/volume] in Serum or Plasma [2345-7] 01/12/2025 11:26 AM 237 mg/dL N Blood chemistry[[id number]] Glucose [Mass/volume] in Serum or Plasma [2345-7] 01/11/2025 01:44 PM 217 mg/dL N Blood chemistry[[id number]] Glucose [Mass/volume] in Serum or Plasma [2345-7] 01/11/2025 03:59 PM 312 mg/dL N Blood chemistry[[id number]] Glucose [Mass/volume] in Serum or Plasma [2345-7] 01/11/2025 09:09 AM 250 mg/dL N Blood chemistry[[id number]] Glucose [Mass/volume] in Serum or Plasma [2345-7] 01/11/2025 11:35 AM 243 mg/dL N Blood chemistry[[id number]] Glucose [Mass/volume] in Serum or Plasma [2345-7] 01/10/2025 01:11 PM 263 mg/dL N Blood chemistry[[id number]] Glucose [Mass/volume] in Serum or Plasma [2345-7] 01/10/2025 04:07 PM 311 mg/dL N Blood chemistry[[id number]] Glucose [Mass/volume] in Serum or Plasma [2345-7] 01/10/2025 09:31 AM 322 mg/dL N Blood chemistry[[id number]] Glucose [Mass/volume] in Serum or Plasma [2345-7] 01/10/2025 11:30 AM 252 mg/dL N Blood chemistry[[id number]] Glucose [Mass/volume] in Serum or Plasma [2345-7] 01/09/2025 03:34 PM 323 mg/dL N Blood chemistry[[id number]] Glucose [Mass/volume] in Serum or Plasma [2345-7] 01/09/2025 10:48 AM 359 mg/dL N Blood chemistry[[id number]] Glucose [Mass/volume] in Serum or Plasma [2345-7] 01/09/2025 04:56 PM 332 mg/dL N Blood chemistry[[id number]] Glucose [Mass/volume] in Serum or Plasma [2345-7] 01/09/2025 12:39 PM 242 mg/dL N Blood chemistry[[id number]] Glucose [Mass/volume] in Serum or Plasma [2345-7] 01/08/2025 01:51 PM 217 mg/dL N Blood chemistry[[id number]] Glucose [Mass/volume] in Serum or Plasma [2345-7] 01/08/2025 04:12 PM 234 mg/dL N Blood chemistry[[id number]] Glucose [Mass/volume] in Serum or Plasma [2345-7] 01/08/2025 09:05 AM 283 mg/dL N Blood chemistry[[id number]] Glucose [Mass/volume] in Serum or Plasma [2345-7] 01/08/2025 11:37 AM 210 mg/dL N Blood chemistry[[id number]] Glucose [Mass/volume] in Serum or Plasma [2345-7] 01/07/2025 02:34 PM 241 mg/dL N Blood chemistry[[id number]] Glucose [Mass/volume] in Serum or Plasma [2345-7] 01/07/2025 04:09 PM 213 mg/dL N Blood chemistry[[id number]] Glucose [Mass/volume] in Serum or Plasma [2345-7] 01/07/2025 09:13 AM 267 mg/dL N Blood chemistry[[id number]] Glucose [Mass/volume] in Serum or Plasma [2345-7] 01/06/2025 04:18 PM 323 mg/dL N Blood chemistry[[id number]] Glucose [Mass/volume] in Serum or Plasma [2345-7] 01/06/2025 11:50 AM 217 mg/dL N Blood chemistry[[id number]] Glucose [Mass/volume] in Serum or Plasma [2345-7] 01/05/2025 01:21 PM 228 mg/dL N Blood chemistry[[id number]] Glucose [Mass/volume] in Serum or Plasma [2345-7] 01/05/2025 04:15 PM 270 mg/dL N Blood chemistry[[id number]] Glucose [Mass/volume] in Serum or Plasma [2345-7] 01/05/2025 09:14 AM 216 mg/dL N Blood chemistry[[id number]] Glucose [Mass/volume] in Serum or Plasma [2345-7] 01/05/2025 11:31 AM 265 mg/dL N Blood chemistry[[id number]] Glucose [Mass/volume] in Serum or Plasma [2345-7] 01/04/2025 12:39 PM 270 mg/dL N Blood chemistry[[id number]] Glucose [Mass/volume] in Serum or Plasma [2345-7] 01/04/2025 03:56 PM 188 mg/dL N Blood chemistry[[id number]] Glucose [Mass/volume] in Serum or Plasma [2345-7] 01/04/2025 10:39 AM 289 mg/dL N Blood chemistry[[id number]] Glucose [Mass/volume] in Serum or Plasma [2345-7] 01/04/2025 01:15 PM 190 mg/dL N Blood chemistry[[id number]] Glucose [Mass/volume] in Serum or Plasma [2345-7] 01/04/2025 05:09 PM 234 mg/dL N Blood chemistry[[id number]] Glucose [Mass/volume] in Serum or Plasma [2345-7] 01/03/2025 04:36 PM 223 mg/dL N Blood chemistry[[id number]] Glucose [Mass/volume] in Serum or Plasma [2345-7] 01/03/2025 08:58 AM 219 mg/dL N Blood chemistry[[id number]] Glucose [Mass/volume] in Serum or Plasma [2345-7] 01/03/2025 11:28 AM 222 mg/dL N Blood chemistry[[id number]] Glucose [Mass/volume] in Serum or Plasma [2345-7] 01/02/2025 12:03 PM 267 mg/dL N Blood chemistry[[id number]] Glucose [Mass/volume] in Serum or Plasma [2345-7] 01/02/2025 04:39 PM 292 mg/dL N Blood chemistry[[id number]] Glucose [Mass/volume] in Serum or Plasma [2345-7] 01/02/2025 09:14 AM 137 mg/dL N Blood chemistry[[id number]] Glucose [Mass/volume] in Serum or Plasma [2345-7] 01/02/2025 02:11 PM 103 mg/dL N Blood chemistry[[id number]] Glucose [Mass/volume] in Serum or Plasma [2345-7] 01/01/2025 12:42 PM 200 mg/dL N Blood chemistry[[id number]] Glucose [Mass/volume] in Serum or Plasma [2345-7] 01/01/2025 05:13 PM 282 mg/dL N Blood chemistry[[id number]] Glucose [Mass/volume] in Serum or Plasma [2345-7] 01/01/2025 12:11 PM 225 mg/dL N Blood chemistry[[id number]] Glucose [Mass/volume] in Serum or Plasma [2345-7] 01/01/2025 09:59 AM 311 mg/dL N Blood chemistry[[id number]] Glucose [Mass/volume] in Serum or Plasma [2345-7] 12/31/2024 01:45 PM 241 mg/dL N Blood chemistry[[id number]] Glucose [Mass/volume] in Serum or Plasma [2345-7] 12/31/2024 12:03 PM 295 mg/dL N Blood chemistry[[id number]] Glucose [Mass/volume] in Serum or Plasma [2345-7] 12/31/2024 09:29 AM 286 mg/dL N Blood chemistry[[id number]] Glucose [Mass/volume] in Serum or Plasma [2345-7] 12/31/2024 06:39 AM 368 mg/dL N Tuberculosis reaction wheal[ 21131-9] Tuberculosis reaction wheal [52486-9] 12/29/2024 01:55 PM 0 mm NEG Blood chemistry[[id number]] Glucose [Mass/volume] in Serum or Plasma [2345-7] 12/30/2024 11:47 AM 299 mg/dL N Blood chemistry[[id number]] Glucose [Mass/volume] in Serum or Plasma [2345-7] 12/30/2024 03:33 PM 391 mg/dL N Blood chemistry[[id number]] Glucose [Mass/volume] in Serum or Plasma [2345-7] 12/30/2024 09:14 AM 394 mg/dL N Blood chemistry[[id number]] Glucose [Mass/volume] in Serum or Plasma [2345-7] 12/30/2024 11:36 AM 248 mg/dL N Blood chemistry[[id number]] Glucose [Mass/volume] in Serum or Plasma [2345-7] 12/29/2024 01:19 PM 299 mg/dL N Blood chemistry[[id number]] Glucose [Mass/volume] in Serum or Plasma [2345-7] 12/29/2024 04:17 PM 311 mg/dL N Blood chemistry[[id number]] Glucose [Mass/volume] in Serum or Plasma [2345-7] 12/29/2024 09:16 AM 335 mg/dL N Tuberculosis reaction wheal[ 54843-1] Tuberculosis reaction wheal [77627-9] 12/29/2024 01:55 PM See note TB test Blood chemistry[[id number]] Glucose [Mass/volume] in Serum or Plasma [2345-7] 12/29/2024 10:21 AM 311 mg/dL N Blood chemistry[[id number]] Glucose [Mass/volume] in Serum or Plasma [2345-7] 12/20/2024 11:30 AM 245 mg/dL N Blood chemistry[[id number]] Glucose [Mass/volume] in Serum or Plasma [2345-7] 12/19/2024 01:23 PM 249 mg/dL N Blood chemistry[[id number]] Glucose [Mass/volume] in Serum or Plasma [2345-7] 12/19/2024 04:13 PM 286 mg/dL N Blood chemistry[[id number]] Glucose [Mass/volume] in Serum or Plasma [2345-7] 12/19/2024 08:24 AM 193 mg/dL N Blood chemistry[[id number]] Glucose [Mass/volume] in Serum or Plasma [2345-7] 12/19/2024 01:16 PM 200 mg/dL N Blood chemistry[[id number]] Glucose [Mass/volume] in Serum or Plasma [2345-7] 12/18/2024 12:48 PM 288 mg/dL N Blood chemistry[[id number]] Glucose [Mass/volume] in Serum or Plasma [2345-7] 12/18/2024 10:35 AM 194 mg/dL N Blood chemistry[[id number]] Glucose [Mass/volume] in Serum or Plasma [2345-7] 12/18/2024 04:18 PM 238 mg/dL N Blood chemistry[[id number]] Glucose [Mass/volume] in Serum or Plasma [2345-7] 12/18/2024 12:56 PM 214 mg/dL N Blood chemistry[[id number]] Glucose [Mass/volume] in Serum or Plasma [2345-7] 12/17/2024 12:58 PM 200 mg/dL N Blood chemistry[[id number]] Glucose [Mass/volume] in Serum or Plasma [2345-7] 12/17/2024 04:59 PM 235 mg/dL N Blood chemistry[[id number]] Glucose [Mass/volume] in Serum or Plasma [2345-7] 12/17/2024 10:19 AM 228 mg/dL N Blood chemistry[[id number]] Glucose [Mass/volume] in Serum or Plasma [2345-7] 12/17/2024 11:45 AM 198 mg/dL N Blood chemistry[[id number]] Glucose [Mass/volume] in Serum or Plasma [2345-7] 12/17/2024 06:47 AM 189 mg/dL N Blood chemistry[[id number]] Glucose [Mass/volume] in Serum or Plasma [2345-7] 12/16/2024 04:49 PM 152 mg/dL N Blood chemistry[[id number]] Glucose [Mass/volume] in Serum or Plasma [2345-7] 12/16/2024 09:26 AM 172 mg/dL N Blood chemistry[[id number]] Glucose [Mass/volume] in Serum or Plasma [2345-7] 12/16/2024 11:56 AM 227 mg/dL N Blood chemistry[[id number]] Glucose [Mass/volume] in Serum or Plasma [2345-7] 12/15/2024 01:02 PM 235 mg/dL N Blood chemistry[[id number]] Glucose [Mass/volume] in Serum or Plasma [2345-7] 12/15/2024 04:51 PM 202 mg/dL N Blood chemistry[[id number]] Glucose [Mass/volume] in Serum or Plasma [2345-7] 12/15/2024 09:10 AM 209 mg/dL N Blood chemistry[[id number]] Glucose [Mass/volume] in Serum or Plasma [2345-7] 12/15/2024 11:44 AM 200 mg/dL N Blood chemistry[[id number]] Glucose [Mass/volume] in Serum or Plasma [2345-7] 12/14/2024 03:10 PM 191 mg/dL N Blood chemistry[[id number]] Glucose [Mass/volume] in Serum or Plasma [2345-7] 12/14/2024 04:16 PM 159 mg/dL N Blood chemistry[[id number]] Glucose [Mass/volume] in Serum or Plasma [2345-7] 12/14/2024 09:12 AM 188 mg/dL N Blood chemistry[[id number]] Glucose [Mass/volume] in Serum or Plasma [2345-7] 12/14/2024 11:48 AM 256 mg/dL N Blood chemistry[[id number]] Glucose [Mass/volume] in Serum or Plasma [2345-7] 12/13/2024 11:12 AM 201 mg/dL N Blood chemistry[[id number]] Glucose [Mass/volume] in Serum or Plasma [2345-7] 12/13/2024 09:03 AM 242 mg/dL N Blood chemistry[[id number]] Glucose [Mass/volume] in Serum or Plasma [2345-7] 12/13/2024 04:04 PM 281 mg/dL N Blood chemistry[[id number]] Glucose [Mass/volume] in Serum or Plasma [2345-7] 12/13/2024 11:54 AM 212 mg/dL N Blood chemistry[[id number]] Glucose [Mass/volume] in Serum or Plasma [2345-7] 12/13/2024 09:06 AM 305 mg/dL N Blood chemistry[[id number]] Glucose [Mass/volume] in Serum or Plasma [2345-7] 12/12/2024 04:42 PM 269 mg/dL N Blood chemistry[[id number]] Glucose [Mass/volume] in Serum or Plasma [2345-7] 12/12/2024 11:33 AM 203 mg/dL N Blood chemistry[[id number]] Glucose [Mass/volume] in Serum or Plasma [2345-7] 12/12/2024 09:04 AM 275 mg/dL N Blood chemistry[[id number]] Glucose [Mass/volume] in Serum or Plasma [2345-7] 12/11/2024 03:02 PM 278 mg/dL N Blood chemistry[[id number]] Glucose [Mass/volume] in Serum or Plasma [2345-7] 12/11/2024 09:17 AM 248 mg/dL N Blood chemistry[[id number]] Glucose [Mass/volume] in Serum or Plasma [2345-7] 12/11/2024 04:53 PM 250 mg/dL N Blood chemistry[[id number]] Glucose [Mass/volume] in Serum or Plasma [2345-7] 12/11/2024 11:52 AM 259 mg/dL N Blood chemistry[[id number]] Glucose [Mass/volume] in Serum or Plasma [2345-7] 12/10/2024 05:50 PM 263 mg/dL N Blood chemistry[[id number]] Glucose [Mass/volume] in Serum or Plasma [2345-7] 12/10/2024 03:17 PM 284 mg/dL N Blood chemistry[[id number]] Glucose [Mass/volume] in Serum or Plasma [2345-7] 12/10/2024 12:38 PM 221 mg/dL N Blood chemistry[[id number]] Glucose [Mass/volume] in Serum or Plasma [2345-7] 12/10/2024 10:54 AM 245 mg/dL N Blood chemistry[[id number]] Glucose [Mass/volume] in Serum or Plasma [2345-7] 12/09/2024 02:23 PM 214 mg/dL N Blood chemistry[[id number]] Glucose [Mass/volume] in Serum or Plasma [2345-7] 12/09/2024 09:57 AM 223 mg/dL N Blood chemistry[[id number]] Glucose [Mass/volume] in Serum or Plasma [2345-7] 12/09/2024 05:07 PM 225 mg/dL N Blood chemistry[[id number]] Glucose [Mass/volume] in Serum or Plasma [2345-7] 12/09/2024 12:42 PM 233 mg/dL N Blood chemistry[[id number]] Glucose [Mass/volume] in Serum or Plasma [2345-7] 12/08/2024 12:54 PM 297 mg/dL N Blood chemistry[[id number]] Glucose [Mass/volume] in Serum or Plasma [2345-7] 12/08/2024 10:19 AM 234 mg/dL N Blood chemistry[[id number]] Glucose [Mass/volume] in Serum or Plasma [2345-7] 12/08/2024 06:40 PM 229 mg/dL N Blood chemistry[[id number]] Glucose [Mass/volume] in Serum or Plasma [2345-7] 12/08/2024 05:22 PM 189 mg/dL N Blood chemistry[[id number]] Glucose [Mass/volume] in Serum or Plasma [2345-7] 12/08/2024 12:40 PM 227 mg/dL N Blood chemistry[[id number]] Glucose [Mass/volume] in Serum or Plasma [2345-7] 12/07/2024 11:23 AM 199 mg/dL N Blood chemistry[[id number]] Glucose [Mass/volume] in Serum or Plasma [2345-7] 12/07/2024 06:30 PM 186 mg/dL N Blood chemistry[[id number]] Glucose [Mass/volume] in Serum or Plasma [2345-7] 12/07/2024 02:55 PM 306 mg/dL N Blood chemistry[[id number]] Glucose [Mass/volume] in Serum or Plasma [2345-7] 12/06/2024 02:00 PM 316 mg/dL N Blood chemistry[[id number]] Glucose [Mass/volume] in Serum or Plasma [2345-7] 12/06/2024 10:16 AM 317 mg/dL N Blood chemistry[[id number]] Glucose [Mass/volume] in Serum or Plasma [2345-7] 12/06/2024 05:22 PM 205 mg/dL N Blood chemistry[[id number]] Glucose [Mass/volume] in Serum or Plasma [2345-7] 12/06/2024 01:56 PM 281 mg/dL N Blood chemistry[[id number]] Glucose [Mass/volume] in Serum or Plasma [2345-7] 12/05/2024 06:08 PM 217 mg/dL N Blood chemistry[[id number]] Glucose [Mass/volume] in Serum or Plasma [2345-7] 12/05/2024 03:22 PM 326 mg/dL N Blood chemistry[[id number]] Glucose [Mass/volume] in Serum or Plasma [2345-7] 12/05/2024 01:52 PM 188 mg/dL N Blood chemistry[[id number]] Glucose [Mass/volume] in Serum or Plasma [2345-7] 12/05/2024 11:03 AM 288 mg/dL N Blood chemistry[[id number]] Glucose [Mass/volume] in Serum or Plasma [2345-7] 12/04/2024 03:22 PM 378 mg/dL N Blood chemistry[[id number]] Glucose [Mass/volume] in Serum or Plasma [2345-7] 12/04/2024 11:50 AM 326 mg/dL N Blood chemistry[[id number]] Glucose [Mass/volume] in Serum or Plasma [2345-7] 12/04/2024 06:03 PM 318 mg/dL N Blood chemistry[[id number]] Glucose [Mass/volume] in Serum or Plasma [2345-7] 12/04/2024 01:47 PM 346 mg/dL N Blood chemistry[[id number]] Glucose [Mass/volume] in Serum or Plasma [2345-7] 12/03/2024 02:46 PM 300 mg/dL N Blood chemistry[[id number]] Glucose [Mass/volume] in Serum or Plasma [2345-7] 12/03/2024 11:02 AM 398 mg/dL N Blood chemistry[[id number]] Glucose [Mass/volume] in Serum or Plasma [2345-7] 12/03/2024 06:00 PM 400 mg/dL N Blood chemistry[[id number]] Glucose [Mass/volume] in Serum or Plasma [2345-7] 12/03/2024 02:45 PM 270 mg/dL N Blood chemistry[[id number]] Glucose [Mass/volume] in Serum or Plasma [2345-7] 12/02/2024 01:49 PM 281 mg/dL N Blood chemistry[[id number]] Glucose [Mass/volume] in Serum or Plasma [2345-7] 11/25/2024 04:06 PM 385 mg/dL N Blood chemistry[[id number]] Glucose [Mass/volume] in Serum or Plasma [2345-7] 11/25/2024 10:03 AM 267 mg/dL N Blood chemistry[[id number]] Glucose [Mass/volume] in Serum or Plasma [2345-7] 11/25/2024 05:14 PM 222 mg/dL N Blood chemistry[[id number]] Glucose [Mass/volume] in Serum or Plasma [2345-7] 11/25/2024 11:57 AM 215 mg/dL N Blood chemistry[[id number]] Glucose [Mass/volume] in Serum or Plasma [2345-7] 11/24/2024 12:53 PM 213 mg/dL N Blood chemistry[[id number]] Glucose [Mass/volume] in Serum or Plasma [2345-7] 11/24/2024 10:16 AM 395 mg/dL N Blood chemistry[[id number]] Glucose [Mass/volume] in Serum or Plasma [2345-7] 11/24/2024 05:39 PM 222 mg/dL N Blood chemistry[[id number]] Glucose [Mass/volume] in Serum or Plasma [2345-7] 11/24/2024 12:52 PM 275 mg/dL N Blood chemistry[[id number]] Glucose [Mass/volume] in Serum or Plasma [2345-7] 11/23/2024 02:43 PM 248 mg/dL N Blood chemistry[[id number]] Glucose [Mass/volume] in Serum or Plasma [2345-7] 11/23/2024 09:57 AM 193 mg/dL N Blood chemistry[[id number]] Glucose [Mass/volume] in Serum or Plasma [2345-7] 11/23/2024 04:28 PM 218 mg/dL N Blood chemistry[[id number]] Glucose [Mass/volume] in Serum or Plasma [2345-7] 11/23/2024 11:36 AM 256 mg/dL N Blood chemistry[[id number]] Glucose [Mass/volume] in Serum or Plasma [2345-7] 11/22/2024 01:06 PM 359 mg/dL N Blood chemistry[[id number]] Glucose [Mass/volume] in Serum or Plasma [2345-7] 11/22/2024 11:07 AM 312 mg/dL N Blood chemistry[[id number]] Glucose [Mass/volume] in Serum or Plasma [2345-7] 11/22/2024 06:11 PM 294 mg/dL N Blood chemistry[[id number]] Glucose [Mass/volume] in Serum or Plasma [2345-7] 11/22/2024 03:53 PM 258 mg/dL N Blood chemistry[[id number]] Glucose [Mass/volume] in Serum or Plasma [2345-7] 11/21/2024 06:03 PM 246 mg/dL N Blood chemistry[[id number]] Glucose [Mass/volume] in Serum or Plasma [2345-7] 11/21/2024 04:01 PM 335 mg/dL N Blood chemistry[[id number]] Glucose [Mass/volume] in Serum or Plasma [2345-7] 11/21/2024 01:48 PM 227 mg/dL N Blood chemistry[[id number]] Glucose [Mass/volume] in Serum or Plasma [2345-7] 11/21/2024 11:39 AM 156 mg/dL N Blood chemistry[[id number]] Glucose [Mass/volume] in Serum or Plasma [2345-7] 11/20/2024 01:20 PM 364 mg/dL N Blood chemistry[[id number]] Glucose [Mass/volume] in Serum or Plasma [2345-7] 11/20/2024 10:11 AM 338 mg/dL N Blood chemistry[[id number]] Glucose [Mass/volume] in Serum or Plasma [2345-7] 11/20/2024 04:41 PM 250 mg/dL N Blood chemistry[[id number]] Glucose [Mass/volume] in Serum or Plasma [2345-7] 11/20/2024 12:21 PM 268 mg/dL N Blood chemistry[[id number]] Glucose [Mass/volume] in Serum or Plasma [2345-7] 11/19/2024 05:30 PM 208 mg/dL N Blood chemistry[[id number]] Glucose [Mass/volume] in Serum or Plasma [2345-7] 11/19/2024 03:47 PM 181 mg/dL N Blood chemistry[[id number]] Glucose [Mass/volume] in Serum or Plasma [2345-7] 11/19/2024 12:22 PM 292 mg/dL N Blood chemistry[[id number]] Glucose [Mass/volume] in Serum or Plasma [2345-7] 11/19/2024 09:40 AM 249 mg/dL N Blood chemistry[[id number]] Glucose [Mass/volume] in Serum or Plasma [2345-7] 11/18/2024 01:02 PM 374 mg/dL N Blood chemistry[[id number]] Glucose [Mass/volume] in Serum or Plasma [2345-7] [...] Active Afluria Qd 2022-(3yr up)(PF) (flu vac [id number] 36mos up(pf)) 60 mcg (15 mcg x 4)/0.5 mL syringe (Afluria Qd 2022-(3yr up)(PF) (flu vac [id number] 36mos up(pf))) 0.5ml, intramuscular , Once - [...] rising and [facility] Active oxycodone 5 mg capsule [...] 1 cap, oral, At Bedtime oral 1.0 02/28/ 2025 03/19 /2025 Active Thera-M (multivitamin,t k-eyhf-vd-fa-mi n) 27-0.4 mg tablet (Thera-M (multivitamin,t w-wfrn-gr-fa-mi n)) 1 tab, oral, Once A Day, [...] s 1.0 12.0 h 12/01 Active Thera-M (nmxuncio-uar-h dennise fum-folic ac) 19 mg iron- 400 mcg tablet (Thera-M (ezpmirxx-our-t dennise fum-folic ac)) 1 tab, oral, Once [...] Sugar is greater than 400, call [facility] 1.0 2024 Active metformin 500 mg [...] admission intraderma l 1.0 12/29 Active Thera-M (dchyslmj-ykb-t dennise fum-folic ac) 19 mg iron- 400 mcg tablet (Thera-M (sdswdali-hgn-h dennise fum-folic ac)) 1 tab, oral, Once [...] 3 consecutive times or symptomatic call [facility] 1.0 8.0 h 06/14 Active insulin [...] PRN, For pain/fever oral 1.0 6.0 h 08/07 Active albuterol sulfate 90 mcg/actuation HFA aerosol inhaler (albuterol sulfate) 2 puffs, inhalation, Every 4 Hours - PRN, For SOB or wheezing inhalation 1.0 4.0 h 08/07 Active atorvastatin 80 mg tablet (atorvastatin) 1 tab, oral, Once A Day oral 1.0 1.0 d 08/07 Active ceftazidime 2 gram recon soln (ceftazidime) 2 gram, intravenous, Every 8 Hours, Through 06/23/25 intravenou s 1.0 8.0 h 06/23 Active digoxin 125 mcg (0.125 mg) tablet (digoxin) 1 tab, oral, Once A Day oral 1.0 1.0 d 08/07 Active fentanyl 100 mcg/hr patch 72 hour [...] spit after use. inhalation 1.0 12.0 h 08/07 Active fluticasone propionate 50 mcg/actuation spray,suspensio n (fluticasone propionate) 1 spray, nasal, Once A Day, Each nostril nasal 1.0 1.0 d 08/07 Active fosfomycin tromethamine 3 gram packet (fosfomycin tromethamine) 1 packet, oral, Once A Day on Mon, Mix as directed. oral 1.0 1.0 d 07/04 Active furosemide 20 mg tablet (furosemide) 1 tab, oral, Once A Day oral 1.0 1.0 d 08/07 Active hydrocodone-delphine taminophen 7.5-325 mg tablet (hydrocodone-ac etaminophen) 1 tab, oral, Every 12 Hours - PRN, For pain, exempt R52 oral 1.0 12.0 h 07/12 Active insulin glargine-yfgn 100 unit/mL (3 mL) insulin pen (insulin glargine-yfgn) 25 units, subcutaneous, Once A Day subcutaneo us 1.0 1.0 d 08/07 Active insulin lispro 100 unit/mL insulin pen (insulin lispro) 10 units, subcutaneous, Before Meals subcutaneo us 1.0 08/07 Active metformin 500 mg tablet (metformin) 1 tab, oral, Once A Day oral 1.0 1.0 d 08/07 Active Normal Saline Flush (sodium chloride 0.9 %) - syringe (Normal Saline Flush (sodium chloride 0.9 %)) 5ml, injection, Every Shift, Flush with 5ml NS before and after use(SASH) 1.0 8.0 h 06/27 Active nystatin 100,000 unit/gram powder (nystatin) 1 ana, topical, Three Times A Day topical 1.0 8.0 h 08/07 Active omeprazole 20 mg capsule,delayed release(DR/EC) (omeprazole) 1 cap, oral, Once A Day oral 1.0 1.0 d 08/07 Active ondansetron HCl 4 mg tablet (ondansetron HCl) 1 tab, oral, Three Times A Day - PRN, For nausea/vomiti ng, take before meals oral 1.0 8.0 h 08/07 Active silver sulfadiazine 1 % cream (silver sulfadiazine) 1 ana, topical, Twice A Day, Apply buttock and cover with foam dressing. topical 1.0 12.0 h 06/22 Active simethicone 125 mg capsule (simethicone) 2 caps (250 mg), oral, Before Meals and At Bedtime oral 1.0 08/07 Active Triad Wound Dressing (wound dressings) - [...] Twice A Day oral 1.0 12.0 h 08/07 Active Miralax (polyethylene glycol 3350) 17 gram/dose powder (Miralax (polyethylene glycol 3350)) 17gram, oral, Once A Day - PRN, Mix with 8 oz of water or juice prn constipation oral 1.0 1.0 d 08/07 Active hydrocodone-delphine taminophen 7.5-325 mg tablet (hydrocodone-ac etaminophen) 1 tab, oral, Every 12 Hours - PRN, For pain, exempt R52 oral 1.0 12.0 h 07/20 Active Silvadene (silver sulfadiazine) 1 % cream (Silvadene (silver sulfadiazine)) as directed, topical, Every Shift, Buttock: Apply silvadene cream to buttock and saji topical 1.0 8.0 h 08/07 Active Afluria (3yr up)(PF) (flu vac [id number] 36mos up(pf)) 45 mcg (15 mcg x 3)/0.5 m syringe (Afluria (3yr up)(PF) (flu vac [id number] 36mos up(pf))) 0.5ml, intramuscular , Once - One Time intramuscu lar 1.0 07/18 Active Afluria (3yr up)(PF) (flu vac [id number] 36mos up(pf)) 45 mcg (15 mcg x 3)/0.5 m syringe (Afluria (3yr up)(PF) (flu vac [id number] 36mos up(pf))) 0.5ml, intramuscular , Once - [...] new patch. transderma l 1.0 72.0 h 08/07 Active hydrocodone-delphine taminophen 7.5-325 mg tablet (hydrocodone-ac etaminophen) 1 tab, oral, Every 12 Hours, For pain, exempt R52 oral 1.0 12.0 h 08/07 Active MediHoney (honey) (honey) 80 % gel (MediHoney (honey) (honey)) as directed, topical, Once A Day, Buttock: Clean with ns and gauze, apply medi-honey to wound bed and cover with foam dressing topical 1.0 1.0 d 08/07 Active acetaminophen 325 mg tablet (acetaminophen) 2 tabs (650mg), oral, Every 6 Hours - PRN, for pain or fever oral 1.0 6.0 h 2024 Active albuterol sulfate 90 mcg/actuation HFA aerosol inhaler (albuterol sulfate) 2 puff, inhalation, Every 4 Hours - PRN, for sob or wheezing inhalation 1.0 4.0 h 2024 Active atorvastatin 80 mg tablet (atorvastatin) 1 tab, oral, Once A Day oral 1.0 1.0 d 2024 Active ciprofloxacin HCl 500 mg tablet (ciprofloxacin HCl) 1 tab, oral, Twice A Day, for 10 days oral 1.0 12.0 h 08/20 Active digoxin 125 mcg (0.125 mg) tablet (digoxin) 1 tab, oral, Once A Day oral 1.0 1.0 d 2024 Active fentanyl 100 mcg/hr patch 72 hour (fentanyl) 1 patch, transdermal, Once A Day Every 3 Days, remove old patch before placing new, exempt R52 transderma l 1.0 1.0 d 08/11 Active fluticasone propion-salmete rol 100-50 mcg/dose blister with device (fluticasone propion-salmete rol) 1 inhalation, inhalation, Twice A Day, rinse mouth with water and spit after use inhalation 1.0 12.0 h 2024 Active fluticasone propionate 50 mcg/actuation spray,suspensio n (fluticasone propionate) 1 spray each nostril, nasal, Once A Day nasal 1.0 1.0 d 2024 Active furosemide 20 mg tablet (furosemide) 1 tab, oral, Once A Day oral 1.0 1.0 d 2024 Active hydrocodone-delphine taminophen 7.5-325 mg tablet (hydrocodone-ac etaminophen) 1 tab, oral, Every 12 Hours - PRN, pain exempt r52 oral 1.0 12.0 h 08/15 Active insulin glargine-yfgn 100 unit/mL (3 mL) insulin pen (insulin glargine-yfgn) 10 units, subcutaneous, Once A Day, TI for Lantus subcutaneo us 1.0 1.0 d 08/14 Active insulin lispro 100 unit/mL insulin pen [...] 400, give 8 Units. subcutaneo us 1.0 2024 Active metformin 500 mg tablet (metformin) 1 tab, oral, Once A Day oral 1.0 1.0 d 09/11 Active methenamine hippurate 1 gram tablet (methenamine hippurate) 1 tab, oral, Twice A Day oral 1.0 12.0 h 2024 Active nystatin 100,000 unit/gram powder (nystatin) 1 ana, topical, Three Times A Day topical 1.0 8.0 h 08/22 Active omeprazole 20 mg capsule,delayed release(DR/EC) (omeprazole) 1 cap, oral, Once A Day oral 1.0 1.0 d 2024 Active ondansetron HCl 4 mg tablet (ondansetron HCl) 1 tab, oral, Three Times A Day - PRN, for n/v oral 1.0 8.0 h 2024 Active silver sulfadiazine 1 % cream (silver sulfadiazine) 1 ana, topical, Twice A Day, apply to buttocks and cover with foam dressing topical 1.0 12.0 h 08/11 Active simethicone 125 mg capsule (simethicone) 1 cap, oral, Before Meals and At Bedtime oral 1.0 2024 Active fentanyl 100 mcg/hr patch 72 hour (fentanyl) 1 patch, transdermal, Once A Day Every 3 Days, remove old patch before placing new, exempt R52 transderma l 1.0 1.0 d 2024 Active MediHoney (honey) (honey) 80 % gel (MediHoney (honey) (honey)) as directed, topical, Once A Day, Sacrum: Cleanse with ns and gauze, apply medi-honey to wound bed only and cover with bordered foam topical 1.0 1.0 d 08/24 Active insulin glargine-yfgn 100 unit/mL (3 mL) insulin pen (insulin glargine-yfgn) 15 units, subcutaneous, Once A Day, TI for Lantus subcutaneo us 1.0 1.0 d 09/05 Active hydrocodone-delphine taminophen 7.5-325 mg tablet (hydrocodone-ac etaminophen) 1 tab, oral, Three Times A Day - PRN, pain exempt r52 oral 1.0 8.0 h 09/11 Active ascorbic acid (vitamin C) 1,000 mg tablet (ascorbic acid (vitamin C)) 1 tab, oral, Once A Day, Per Internal medicine oral 1.0 1.0 d 08/16 Active ascorbic acid (vitamin C) 500 mg tablet (ascorbic acid (vitamin C)) 2 tabs (1,000 mg), oral, Once A Day, Per Internal medicine oral 1.0 1.0 d 2024 Active Cipro (ciprofloxacin hcl) 500 mg tablet (Cipro (ciprofloxacin hcl)) 1 tab, oral, Once A Day on Mon, Wed, Fri, no stop date for now per Internal medicine oral 1.0 1.0 d 09/16 Active nystatin 100,000 unit/gram powder (nystatin) small amount, topical, Every Shift, Cleanse folds with soap and water, dry then apply nystatin powder Q shift. topical 1.0 8.0 h 2024 Active MediHoney (honey) (honey) 80 % gel (MediHoney (honey) (honey)) as directed, topical, Every Shift, Sacrum: Cleanse with ns and gauze, apply medi-honey to wound bed only, pack with damp gauze and cover with bordered foam topical 1.0 8.0 h 09/14 Active Lantus Solostar U-100 Insulin (insulin glargine) 100 unit/mL (3 mL) insulin pen (Lantus Solostar U-100 Insulin (insulin glargine)) 15 units, subcutaneous, Once A Day subcutaneo us 1.0 1.0 d 2024 Active Acidophilus (lactobacillus acidophilus) - tablet,chewable (Acidophilus (lactobacillus acidophilus)) 1, oral, Once A Day oral 1.0 1.0 d 10/10 Active cephalexin 500 mg capsule (cephalexin) 1, oral, Three Times A Day oral 1.0 8.0 h 09/19 Active Acidophilus (lactobacillus acidophilus) - tablet,chewable (Acidophilus (lactobacillus acidophilus)) 1, oral, Once A Day oral 1.0 1.0 d 09/11 Active Lactobacillus acidophilus 500 million cell capsule (Lactobacillus acidophilus) 1 cap, oral, Once A Day oral 1.0 1.0 d 10/10 Active docusate sodium 100 mg tablet (docusate sodium) 1 tab, oral, Once A Day oral 1.0 1.0 d 2024 Active hydrocodone-delphine taminophen 7.5-325 mg tablet (hydrocodone-ac etaminophen) 1 tab, oral, Every 4 Hours - PRN, pain exempt r52 oral 1.0 4.0 h 2024 Active MediHoney (honey) (honey) 80 % gel (MediHoney (honey) (honey)) as directed, topical, Every Shift, Sacrum: Cleanse with ns and gauze, apply medi-honey to wound bed only, put collagen powder in wound bed then pack with damp gauze and cover with bordered foam topical 1.0 8.0 h 2024 Active cephalexin 500 mg capsule (cephalexin) 1, oral, Three Times A Day oral 1.0 8.0 h 09/17 Active Cipro (ciprofloxacin) 500 mg/5 mL suspension,micr ocapsule recon (Cipro (ciprofloxacin) ) 1, oral, Twice A Day oral 1.0 12.0 h 09/23 Active lactulose 10 gram packet (lactulose) 45 mls, oral, Twice A Day oral 1.0 12.0 h 09/18 Active mag citrate-potassi um citrate 70-99 mg capsule (mag citrate-potassi um citrate) 300 mls, oral, Once A Day oral 1.0 1.0 d 09/19 Active metronidazole 500 mg tablet (metronidazole) 1, oral, Twice A Day oral 1.0 12.0 h 09/30 Active Cipro (ciprofloxacin) 500 mg/5 mL suspension,micr ocapsule recon (Cipro (ciprofloxacin) ) 1, oral, Twice A Day oral 1.0 12.0 h 09/18 Active ciprofloxacin HCl 500 mg tablet (ciprofloxacin HCl) 1 tab, oral, Twice A Day, through 09/23 oral 1.0 12.0 h 09/23 Active lactulose 10 gram/15 mL solution (lactulose) 45 mL (30 gram), oral, Twice A Day oral 1.0 12.0 h 2024 Active Vital Signs Date Vital Result Comment 06/21/2024 07:40 AM Temperature (8310-5) 97.6 [degF] Oxygen Saturation (40178-3) 99 % Respiratory Rate (9279-1) 18 /min Heart Rate (8867-4) 105 /min Blood Pressure Systolic (8480-6) 107 mm[Hg] Blood Pressure Diastolic (8462-4) 69 mm[Hg] 06/20/2024 07:31 PM Temperature (8310-5) 98.2 [degF] Oxygen Saturation (85944-0) 95 % Respiratory Rate (9279-1) 20 /min Heart Rate (8867-4) 105 /min Blood Pressure Systolic (8480-6) 104 mm[Hg] Blood Pressure Diastolic (8462-4) 69 mm[Hg] 06/20/2024 07:54 AM Temperature (8310-5) 97.4 [degF] Oxygen Saturation (28008-9) 97 % Respiratory Rate (9279-1) 16 /min Heart Rate (8867-4) 86 /min Blood Pressure Systolic (8480-6) 120 mm[Hg] Blood Pressure Diastolic (8462-4) 74 mm[Hg] 06/19/2024 10:46 PM Temperature (8310-5) 97 [degF] Oxygen Saturation (67906-3) 95 % Respiratory Rate (9279-1) 16 /min Heart Rate (8867-4) 70 /min Blood Pressure Systolic (8480-6) 112 mm[Hg] Blood Pressure Diastolic (8462-4) 78 mm[Hg] 06/19/2024 07:18 AM Temperature (8310-5) 97.3 [degF] Oxygen Saturation (09821-0) 94 % Respiratory Rate (9279-1) 19 /min Heart Rate (8867-4) 68 /min Blood Pressure Systolic (8480-6) 109 mm[Hg] Blood Pressure Diastolic (8462-4) 63 mm[Hg] 06/18/2024 11:55 PM Temperature (8310-5) 98 [degF] Oxygen Saturation (41855-2) 95 % Respiratory Rate (9279-1) 18 /min Heart Rate (8867-4) 70 /min Blood Pressure Systolic (8480-6) 130 mm[Hg] Blood Pressure Diastolic (8462-4) 78 mm[Hg] 06/18/2024 07:37 AM Temperature (8310-5) 98 [degF] Oxygen Saturation (20869-7) 100 % Respiratory Rate (9279-1) 18 /min Heart Rate (8867-4) 97 /min Blood Pressure Systolic (8480-6) 102 mm[Hg] Blood Pressure Diastolic (8462-4) 61 mm[Hg] 06/17/2024 10:05 PM Temperature (8310-5) 98 [degF] Oxygen Saturation (52805-6) 96 % Respiratory Rate (9279-1) 16 /min Heart Rate (8867-4) 76 /min Blood Pressure Systolic (8480-6) 132 mm[Hg] Blood Pressure Diastolic (8462-4) 88 mm[Hg] 06/17/2024 06:57 AM Temperature (8310-5) 97.4 [degF] Oxygen Saturation (53011-8) 93 % Respiratory Rate (9279-1) 16 /min Heart Rate (8867-4) 82 /min Blood Pressure Systolic (8480-6) 108 mm[Hg] Blood Pressure Diastolic (8462-4) 71 mm[Hg] 06/16/2024 08:22 PM Temperature (8310-5) 98.4 [degF] Oxygen Saturation (55932-0) 94 % Respiratory Rate (9279-1) 20 /min Heart Rate (8867-4) 92 /min Blood Pressure Systolic (8480-6) 110 mm[Hg] Blood Pressure Diastolic (8462-4) 79 mm[Hg] 06/14/2024 11:04 PM Body Height (8302-2) 68 [in_us] Body Weight (80616-4) 202 [lb_av] Body Mass Index (06886-6) 30.71 kg/m2 05/25/2024 10:58 AM Body Weight (54722-2) 202.4 [lb_av ] Body Mass Index (68119-3) 30.77 kg/m2 04/20/2024 11:06 AM Body Weight (39120-5) 201 [lb_av] Body Mass Index (49421-7) 30.56 kg/m2 04/13/2024 09:23 AM Body Weight (29671-4) 210.4 [lb_av ] Body Mass Index (90923-0) 31.99 kg/m2 05/04/2024 10:54 AM Body Weight (06450-5) 204 [lb_av] Body Mass Index (64110-5) 31.01 kg/m2 06/16/2024 06:33 AM Body Weight (88267-0) 198 [lb_av] Body Mass Index (18485-9) 30.1 kg/m2 05/05/2024 10:28 AM Body Weight (90344-2) 204 [lb_av] Body Mass Index (64418-5) 31.01 kg/m2 04/04/2024 02:53 PM Body Weight (32357-3) 215 [lb_av] Body Mass Index (42560-6) 32.69 kg/m2 05/18/2024 07:21 AM Body Weight (60455-2) 202.8 [lb_av ] Body Mass Index (73735-1) 30.83 kg/m2 04/12/2024 12:14 PM Body Weight (73329-8) 210 [lb_av] Body Mass Index (57000-0) 31.93 kg/m2 06/05/2024 12:53 PM Body Weight (92267-0) 202.2 [lb_av ] Body Mass Index (99630-8) 30.74 kg/m2 06/15/2024 10:07 AM Body Weight (70545-5) 198.2 [lb_av ] Body Mass Index (94622-3) 30.13 kg/m2 05/08/2024 02:35 PM Body Weight (87583-8) 208.2 [lb_av ] Body Mass Index (28531-7) 31.65 kg/m2 06/17/2024 11:18 AM Body Weight (80633-1) 198 [lb_av] Body Mass Index (06309-4) 30.1 kg/m2 05/10/2024 09:17 AM Body Weight (25369-3) 204.6 [lb_av ] Body Mass Index (44668-3) 31.11 kg/m2 05/07/2024 09:36 AM Body Weight (14787-0) 203.2 [lb_av ] Body Mass Index (40899-7) 30.89 kg/m2 04/27/2024 10:11 AM Body Weight (47172-3) 204.4 [lb_av ] Body Mass Index (50420-7) 31.08 kg/m2 04/08/2024 08:13 PM Body Weight (70869-0) 216 [lb_av] Body Mass Index (85207-5) 32.84 kg/m2 04/01/2024 11:23 AM Body Weight (31276-0) 216 [lb_av] Body Mass Index (48199-1) 32.84 kg/m2 03/30/2024 10:08 AM Body Weight (84238-1) 218.4 [lb_av ] Body Mass Index (79710-1) 33.2 kg/m2 04/02/2024 04:15 PM Body Weight (11621-8) 216 [lb_av] Body Mass Index (18633-7) 32.84 kg/m2 11/18/2024 03:03 PM Temperature (8310-5) 97.7 [degF] Oxygen Saturation (19880-1) 99 % Respiratory Rate (9279-1) 20 /min Heart Rate (8867-4) 91 /min Blood Pressure Systolic (8480-6) 159 mm[Hg] Blood Pressure Diastolic (8462-4) 97 mm[Hg] Body Weight (53628-5) 186.4 [lb_av] Body Mass Index (18704-6) 28.34 kg/m2 11/19/2024 04:19 AM Temperature (8310-5) 98 [degF] Oxygen Saturation (17708-7) 95 % Respiratory Rate (9279-1) 16 /min Heart Rate (8867-4) 70 /min Blood Pressure Systolic (8480-6) 112 mm[Hg] Blood Pressure Diastolic (8462-4) 80 mm[Hg] 11/19/2024 09:48 PM Temperature (8310-5) 98 [degF] Oxygen Saturation (67995-0) 95 % Respiratory Rate (9279-1) 16 /min Heart Rate (8867-4) 70 /min Blood Pressure Systolic (8480-6) 136 mm[Hg] Blood Pressure Diastolic (8462-4) 78 mm[Hg] 11/19/2024 03:05 PM Body Weight (10640-8) 185.8 [lb_av ] Body Mass Index (55274-4) 28.25 kg/m2 11/19/2024 10:46 AM Temperature (8310-5) 98 [degF] Oxygen Saturation (01641-1) 98 % Respiratory Rate (9279-1) 18 /min Heart Rate (8867-4) 79 /min Blood Pressure Systolic (8480-6) 104 mm[Hg] Blood Pressure Diastolic (8462-4) 46 mm[Hg] 11/20/2024 01:08 PM Body Weight (37222-0) 184.2 [lb_av ] Body Mass Index (00701-6) 28 kg/m2 11/20/2024 07:57 AM Temperature (8310-5) 97.3 [degF] Oxygen Saturation (31890-2) 97 % Respiratory Rate (9279-1) 18 /min Heart Rate (8867-4) 96 /min Blood Pressure Systolic (8480-6) 106 mm[Hg] Blood Pressure Diastolic (8462-4) 73 mm[Hg] 11/21/2024 02:24 AM Temperature (8310-5) 97 [degF] Oxygen Saturation (96366-8) 96 % Respiratory Rate (9279-1) 16 /min Heart Rate (8867-4) 80 /min Blood Pressure Systolic (8480-6) 120 mm[Hg] Blood Pressure Diastolic (8462-4) 88 mm[Hg] 11/21/2024 09:25 PM Temperature (8310-5) 97.7 [degF] Oxygen Saturation (82850-5) 93 % Respiratory Rate (9279-1) 20 /min Heart Rate (8867-4) 79 /min Blood Pressure Systolic (8480-6) 104 mm[Hg] Blood Pressure Diastolic (8462-4) 66 mm[Hg] 11/21/2024 05:39 PM Temperature (8310-5) 98.2 [degF] Oxygen Saturation (41258-0) 93 % Respiratory Rate (9279-1) 20 /min Heart Rate (8867-4) 72 /min Blood Pressure Systolic (8480-6) 140 mm[Hg] Blood Pressure Diastolic (8462-4) 68 mm[Hg] 11/22/2024 09:55 AM Temperature (8310-5) 98.1 [degF] Oxygen Saturation (56852-4) 96 % Respiratory Rate (9279-1) 18 /min Heart Rate (8867-4) 67 /min Blood Pressure Systolic (8480-6) 98 mm[Hg] Blood Pressure Diastolic (8462-4) 62 mm[Hg] 11/23/2024 05:54 AM Temperature (8310-5) 96.9 [degF] Oxygen Saturation (92643-0) 96 % Respiratory Rate (9279-1) 18 /min Heart Rate (8867-4) 94 /min Blood Pressure Systolic (8480-6) 120 mm[Hg] Blood Pressure Diastolic (8462-4) 71 mm[Hg] 11/22/2024 06:42 PM Temperature (8310-5) 97.1 [degF] Oxygen Saturation (28270-1) 97 % Respiratory Rate (9279-1) 22 /min Heart Rate (8867-4) 95 /min Blood Pressure Systolic (8480-6) 100 mm[Hg] Blood Pressure Diastolic (8462-4) 52 mm[Hg] 11/24/2024 07:06 AM Temperature (8310-5) 98 [degF] Oxygen Saturation (69937-2) 98 % Respiratory Rate (9279-1) 20 /min Heart Rate (8867-4) 62 /min Blood Pressure Systolic (8480-6) 145 mm[Hg] Blood Pressure Diastolic (8462-4) 65 mm[Hg] 11/23/2024 07:50 PM Temperature (8310-5) 97.1 [degF] Oxygen Saturation (17402-8) 99 % Respiratory Rate (9279-1) 19 /min Heart Rate (8867-4) 60 /min Blood Pressure Systolic (8480-6) 160 mm[Hg] Blood Pressure Diastolic (8462-4) 58 mm[Hg] 11/25/2024 07:04 AM Temperature (8310-5) 97.6 [degF] Oxygen Saturation (93133-7) 96 % Respiratory Rate (9279-1) 18 /min Heart Rate (8867-4) 72 /min Blood Pressure Systolic (8480-6) 142 mm[Hg] Blood Pressure Diastolic (8462-4) 76 mm[Hg] 11/24/2024 08:50 PM Temperature (8310-5) 97 [degF] Oxygen Saturation (02245-5) 95 % Respiratory Rate (9279-1) 16 /min Heart Rate (8867-4) 80 /min Blood Pressure Systolic (8480-6) 130 mm[Hg] Blood Pressure Diastolic (8462-4) 80 mm[Hg] 11/25/2024 10:07 PM Temperature (8310-5) 99.9 [degF] Oxygen Saturation (18649-9) 98 % Respiratory Rate (9279-1) 18 /min Heart Rate (8867-4) 88 /min Blood Pressure Systolic (8480-6) 96 mm[Hg] Blood Pressure Diastolic (8462-4) 70 mm[Hg] 12/03/2024 09:56 AM Temperature (8310-5) 98.1 [degF] Oxygen Saturation (87653-2) 97 % Respiratory Rate (9279-1) 19 /min Heart Rate (8867-4) 83 /min Blood Pressure Systolic (8480-6) 112 mm[Hg] Blood Pressure Diastolic (8462-4) 68 mm[Hg] 12/02/2024 11:39 PM Temperature (8310-5) 97 [degF] Oxygen Saturation (82231-8) 95 % Respiratory Rate (9279-1) 16 /min Heart Rate (8867-4) 70 /min Blood Pressure Systolic (8480-6) 112 mm[Hg] Blood Pressure Diastolic (8462-4) 80 mm[Hg] 12/04/2024 09:15 AM Temperature (8310-5) 98.2 [degF] Oxygen Saturation (99774-6) 98 % Respiratory Rate (9279-1) 20 /min Heart Rate (8867-4) 84 /min Blood Pressure Systolic (8480-6) 138 mm[Hg] Blood Pressure Diastolic (8462-4) 73 mm[Hg] 12/03/2024 09:53 PM Temperature (8310-5) 97 [degF] Oxygen Saturation (44557-3) 95 % Respiratory Rate (9279-1) 16 /min Heart Rate (8867-4) 64 /min Blood Pressure Systolic (8480-6) 138 mm[Hg] Blood Pressure Diastolic (8462-4) 70 mm[Hg] 12/04/2024 09:21 PM Oxygen Saturation (01965-9) 98 % 12/04/2024 09:20 PM Blood Pressure Systolic (8480-6) 1 24 mm[Hg] Blood Pressure Diastolic (8462-4) 80 mm[Hg] 12/04/2024 09:18 PM Temperature (8310-5) 97 [degF] Respiratory Rate (9279-1) 18 /min Heart Rate (8867-4) 80 /min 12/05/2024 06:51 PM Temperature (8310-5) 97.1 [degF] Oxygen Saturation (30952-2) 99 % Respiratory Rate (9279-1) 14 /min Heart Rate (8867-4) 84 /min Blood Pressure Systolic (8480-6) 88 mm[Hg] Blood Pressure Diastolic (8462-4) 53 mm[Hg] 12/05/2024 09:58 AM Temperature (8310-5) 98 [degF] Oxygen Saturation (35252-3) 97 % Respiratory Rate (9279-1) 17 /min Heart Rate (8867-4) 98 /min Blood Pressure Systolic (8480-6) 117 mm[Hg] Blood Pressure Diastolic (8462-4) 78 mm[Hg] 12/06/2024 11:21 AM Temperature (8310-5) 98.1 [degF] Oxygen Saturation (57168-5) 97 % Respiratory Rate (9279-1) 16 /min Heart Rate (8867-4) 70 /min Blood Pressure Systolic (8480-6) 128 mm[Hg] Blood Pressure Diastolic (8462-4) 70 mm[Hg] 12/06/2024 07:51 PM Temperature (8310-5) 97.2 [degF] Oxygen Saturation (22357-8) 97 % Respiratory Rate (9279-1) 16 /min Heart Rate (8867-4) 78 /min Blood Pressure Systolic (8480-6) 88 mm[Hg] Blood Pressure Diastolic (8462-4) 52 mm[Hg] 12/08/2024 10:40 AM Temperature (8310-5) 97.8 [degF] Oxygen Saturation (40304-5) 97 % Respiratory Rate (9279-1) 18 /min Heart Rate (8867-4) 88 /min Blood Pressure Systolic (8480-6) 124 mm[Hg] Blood Pressure Diastolic (8462-4) 66 mm[Hg] 12/08/2024 12:40 AM Temperature (8310-5) 96.8 [degF] Oxygen Saturation (57898-0) 98 % Respiratory Rate (9279-1) 16 /min Heart Rate (8867-4) 85 /min Blood Pressure Systolic (8480-6) 103 mm[Hg] Blood Pressure Diastolic (8462-4) 78 mm[Hg] 12/07/2024 05:24 PM Temperature (8310-5) 97.7 [degF] Oxygen Saturation (77109-4) 92 % Respiratory Rate (9279-1) 20 /min Heart Rate (8867-4) 72 /min Blood Pressure Systolic (8480-6) 114 mm[Hg] Blood Pressure Diastolic (8462-4) 63 mm[Hg] 12/09/2024 07:31 AM Temperature (8310-5) 97.2 [degF] Oxygen Saturation (80913-5) 96 % Respiratory Rate (9279-1) 18 /min Heart Rate (8867-4) 62 /min Blood Pressure Systolic (8480-6) 136 mm[Hg] Blood Pressure Diastolic (8462-4) 72 mm[Hg] 12/09/2024 12:00 AM Temperature (8310-5) 98 [degF] Oxygen Saturation (07556-5) 95 % Respiratory Rate (9279-1) 16 /min Heart Rate (8867-4) 80 /min Blood Pressure Systolic (8480-6) 132 mm[Hg] Blood Pressure Diastolic (8462-4) 87 mm[Hg] 12/09/2024 10:44 PM Temperature (8310-5) 98 [degF] Oxygen Saturation (23578-7) 96 % Respiratory Rate (9279-1) 16 /min Heart Rate (8867-4) 80 /min Blood Pressure Systolic (8480-6) 134 mm[Hg] Blood Pressure Diastolic (8462-4) 80 mm[Hg] 12/10/2024 09:46 PM Temperature (8310-5) 97 [degF] Oxygen Saturation (11285-5) 95 % Respiratory Rate (9279-1) 16 /min Heart Rate (8867-4) 80 /min Blood Pressure Systolic (8480-6) 122 mm[Hg] Blood Pressure Diastolic (8462-4) 70 mm[Hg] 12/10/2024 07:05 AM Temperature (8310-5) 97.6 [degF] Oxygen Saturation (91606-5) 95 % Respiratory Rate (9279-1) 18 /min Heart Rate (8867-4) 62 /min Blood Pressure Systolic (8480-6) 118 mm[Hg] Blood Pressure Diastolic (8462-4) 72 mm[Hg] 12/11/2024 07:29 AM Temperature (8310-5) 97.2 [degF] Oxygen Saturation (63318-4) 96 % Respiratory Rate (9279-1) 18 /min Heart Rate (8867-4) 74 /min Blood Pressure Systolic (8480-6) 118 mm[Hg] Blood Pressure Diastolic (8462-4) 62 mm[Hg] 12/11/2024 10:03 PM Temperature (8310-5) 98 [degF] Oxygen Saturation (07397-7) 95 % Respiratory Rate (9279-1) 16 /min Heart Rate (8867-4) 80 /min Blood Pressure Systolic (8480-6) 132 mm[Hg] Blood Pressure Diastolic (8462-4) 80 mm[Hg] 12/12/2024 08:23 PM Temperature (8310-5) 97.1 [degF] Oxygen Saturation (34524-3) 97 % Respiratory Rate (9279-1) 18 /min Heart Rate (8867-4) 74 /min Blood Pressure Systolic (8480-6) 120 mm[Hg] Blood Pressure Diastolic (8462-4) 80 mm[Hg] 12/12/2024 09:41 AM Temperature (8310-5) 97 [degF] Oxygen Saturation (81787-7) 99 % Respiratory Rate (9279-1) 19 /min Heart Rate (8867-4) 84 /min Blood Pressure Systolic (8480-6) 102 mm[Hg] Blood Pressure Diastolic (8462-4) 73 mm[Hg] 12/13/2024 07:26 AM Temperature (8310-5) 97.1 [degF] Oxygen Saturation (27647-8) 93 % Respiratory Rate (9279-1) 17 /min Heart Rate (8867-4) 80 /min Blood Pressure Systolic (8480-6) 118 mm[Hg] Blood Pressure Diastolic (8462-4) 77 mm[Hg] 12/13/2024 06:27 PM Temperature (8310-5) 97.7 [degF] Oxygen Saturation (54693-2) 97 % Respiratory Rate (9279-1) 17 /min Heart Rate (8867-4) 80 /min Blood Pressure Systolic (8480-6) 115 mm[Hg] Blood Pressure Diastolic (8462-4) 83 mm[Hg] 12/14/2024 08:07 AM Temperature (8310-5) 97.9 [degF] Oxygen Saturation (82585-9) 95 % Respiratory Rate (9279-1) 16 /min Heart Rate (8867-4) 90 /min Blood Pressure Systolic (8480-6) 127 mm[Hg] Blood Pressure Diastolic (8462-4) 62 mm[Hg] 12/14/2024 10:11 PM Temperature (8310-5) 97.5 [degF] Oxygen Saturation (34195-4) 98 % Respiratory Rate (9279-1) 16 /min Heart Rate (8867-4) 85 /min Blood Pressure Systolic (8480-6) 131 mm[Hg] Blood Pressure Diastolic (8462-4) 66 mm[Hg] 12/15/2024 07:10 AM Temperature (8310-5) 98.1 [degF] Oxygen Saturation (51619-5) 97 % Respiratory Rate (9279-1) 18 /min Heart Rate (8867-4) 73 /min Blood Pressure Systolic (8480-6) 145 mm[Hg] Blood Pressure Diastolic (8462-4) 99 mm[Hg] 12/15/2024 09:00 PM Temperature (8310-5) 97 [degF] Oxygen Saturation (25328-7) 99 % Respiratory Rate (9279-1) 20 /min Heart Rate (8867-4) 91 /min Blood Pressure Systolic (8480-6) 118 mm[Hg] Blood Pressure Diastolic (8462-4) 80 mm[Hg] 12/16/2024 12:12 PM Temperature (8310-5) 97.3 [degF] Oxygen Saturation (54525-3) 99 % Respiratory Rate (9279-1) 21 /min Heart Rate (8867-4) 86 /min Blood Pressure Systolic (8480-6) 120 mm[Hg] Blood Pressure Diastolic (8462-4) 78 mm[Hg] 12/17/2024 08:59 AM Temperature (8310-5) 97.6 [degF] Oxygen Saturation (30106-3) 99 % Respiratory Rate (9279-1) 18 /min Heart Rate (8867-4) 66 /min Blood Pressure Systolic (8480-6) 148 mm[Hg] Blood Pressure Diastolic (8462-4) 84 mm[Hg] 12/17/2024 01:51 AM Temperature (8310-5) 97 [degF] Oxygen Saturation (29218-0) 95 % Respiratory Rate (9279-1) 16 /min Heart Rate (8867-4) 70 /min Blood Pressure Systolic (8480-6) 132 mm[Hg] Blood Pressure Diastolic (8462-4) 78 mm[Hg] 12/17/2024 07:59 PM Temperature (8310-5) 98 [degF] Oxygen Saturation (87792-2) 95 % Respiratory Rate (9279-1) 16 /min Heart Rate (8867-4) 70 /min Blood Pressure Systolic (8480-6) 122 mm[Hg] Blood Pressure Diastolic (8462-4) 80 mm[Hg] 12/18/2024 08:44 AM Temperature (8310-5) 97.5 [degF] Oxygen Saturation (70403-1) 99 % Respiratory Rate (9279-1) 14 /min Heart Rate (8867-4) 80 /min Blood Pressure Systolic (8480-6) 111 mm[Hg] Blood Pressure Diastolic (8462-4) 57 mm[Hg] 12/19/2024 05:02 AM Temperature (8310-5) 98 [degF] Oxygen Saturation (78093-4) 98 % Respiratory Rate (9279-1) 16 /min Heart Rate (8867-4) 80 /min Blood Pressure Systolic (8480-6) 120 mm[Hg] Blood Pressure Diastolic (8462-4) 78 mm[Hg] 12/19/2024 01:04 PM Temperature (8310-5) 98.2 [degF] Oxygen Saturation (73778-7) 97 % Respiratory Rate (9279-1) 20 /min Heart Rate (8867-4) 76 /min Blood Pressure Systolic (8480-6) 126 mm[Hg] Blood Pressure Diastolic (8462-4) 76 mm[Hg] 12/19/2024 08:24 PM Temperature (8310-5) 97.5 [degF] Oxygen Saturation (76801-5) 98 % Respiratory Rate (9279-1) 18 /min Heart Rate (8867-4) 82 /min Blood Pressure Systolic (8480-6) 92 mm[Hg] Blood Pressure Diastolic (8462-4) 56 mm[Hg] 12/20/2024 08:20 AM Temperature (8310-5) 97.1 [degF] Oxygen Saturation (11910-4) 97 % Respiratory Rate (9279-1) 16 /min Heart Rate (8867-4) 71 /min Blood Pressure Systolic (8480-6) 113 mm[Hg] Blood Pressure Diastolic (8462-4) 67 mm[Hg] 12/29/2024 12:26 AM Temperature (8310-5) 98.2 [degF] Oxygen Saturation (73620-0) 97 % Respiratory Rate (9279-1) 17 /min Heart Rate (8867-4) 101 /min Blood Pressure Systolic (8480-6) 127 mm[Hg] Blood Pressure Diastolic (8462-4) 84 mm[Hg] Body Weight (85033-9) 185 [lb_av] Body Mass Index (21919-7) 28.13 kg/m2 12/29/2024 06:31 AM Temperature (8310-5) 98.4 [degF] Oxygen Saturation (20615-7) 98 % Respiratory Rate (9279-1) 18 /min Heart Rate (8867-4) 96 /min Blood Pressure Systolic (8480-6) 132 mm[Hg] Blood Pressure Diastolic (8462-4) 58 mm[Hg] 12/29/2024 08:19 PM Temperature (8310-5) 98.3 [degF] Oxygen Saturation (02771-3) 95 % Respiratory Rate (9279-1) 15 /min Heart Rate (8867-4) 104 /min Blood Pressure Systolic (8480-6) 121 mm[Hg] Blood Pressure Diastolic (8462-4) 78 mm[Hg] 12/30/2024 10:28 AM Temperature (8310-5) 97.2 [degF] Oxygen Saturation (65419-2) 98 % Respiratory Rate (9279-1) 20 /min Heart Rate (8867-4) 85 /min Blood Pressure Systolic (8480-6) 113 mm[Hg] Blood Pressure Diastolic (8462-4) 62 mm[Hg] 12/30/2024 10:52 PM Heart Rate (8867-4) 78 /min 12/30/2024 10:51 PM Temperature (8310-5) 97 [degF] Oxygen Saturation (11366-9) 95 % Respiratory Rate (9279-1) 16 /min Blood Pressure Systolic (8480-6) 112 mm[Hg] Blood Pressure Diastolic (8462-4) 80 mm[Hg] 12/31/2024 03:52 PM Temperature (8310-5) 98 [degF] Oxygen Saturation (61951-8) 96 % Respiratory Rate (9279-1) 20 /min Heart Rate (8867-4) 109 /min Blood Pressure Systolic (8480-6) 90 mm[Hg] Blood Pressure Diastolic (8462-4) 71 mm[Hg] 12/31/2024 01:40 PM Body Weight (92299-6) 186 [lb_av] Body Mass Index (54792-2) 28.28 kg/m2 12/31/2024 08:46 PM Temperature (8310-5) 98 [degF] Oxygen Saturation (69478-6) 95 % Respiratory Rate (9279-1) 18 /min Heart Rate (8867-4) 70 /min Blood Pressure Systolic (8480-6) 114 mm[Hg] Blood Pressure Diastolic (8462-4) 80 mm[Hg] 01/01/2025 10:36 AM Temperature (8310-5) 97.8 [degF] Oxygen Saturation (26727-3) 97 % Respiratory Rate (9279-1) 19 /min Heart Rate (8867-4) 95 /min Blood Pressure Systolic (8480-6) 111 mm[Hg] Blood Pressure Diastolic (8462-4) 70 mm[Hg] 01/01/2025 07:41 PM Temperature (8310-5) 98 [degF] Oxygen Saturation (83995-9) 95 % Respiratory Rate (9279-1) 16 /min Heart Rate (8867-4) 88 /min Blood Pressure Systolic (8480-6) 122 mm[Hg] Blood Pressure Diastolic (8462-4) 80 mm[Hg] 01/02/2025 12:59 PM Oxygen Saturation (29040-9) 97 % 01/02/2025 12:57 PM Temperature (8310-5) 97.3 [degF] Respiratory Rate (9279-1) 16 /min Heart Rate (8867-4) 96 /min Blood Pressure Systolic (8480-6) 90 mm[Hg] Blood Pressure Diastolic (8462-4) 60 mm[Hg] 01/02/2025 07:07 PM Temperature (8310-5) 98.6 [degF] Oxygen Saturation (64731-3) 98 % Respiratory Rate (9279-1) 16 /min Heart Rate (8867-4) 111 /min Blood Pressure Systolic (8480-6) 114 mm[Hg] Blood Pressure Diastolic (8462-4) 64 mm[Hg] 01/03/2025 06:28 AM Temperature (8310-5) 97.7 [degF] Oxygen Saturation (14474-8) 96 % Respiratory Rate (9279-1) 19 /min Heart Rate (8867-4) 111 /min Blood Pressure Systolic (8480-6) 116 mm[Hg] Blood Pressure Diastolic (8462-4) 88 mm[Hg] 01/03/2025 11:35 AM Body Weight (87592-6) 182.4 [lb_av ] Body Mass Index (04805-2) 27.73 kg/m2 01/04/2025 12:10 AM Temperature (8310-5) 97.6 [degF] Oxygen Saturation (84888-8) 97 % Respiratory Rate (9279-1) 15 /min Heart Rate (8867-4) 114 /min Blood Pressure Systolic (8480-6) 121 mm[Hg] Blood Pressure Diastolic (8462-4) 82 mm[Hg] 01/04/2025 09:26 AM Temperature (8310-5) 97.3 [degF] Oxygen Saturation (13049-8) 100 % Respiratory Rate (9279-1) 18 /min Heart Rate (8867-4) 84 /min Blood Pressure Systolic (8480-6) 115 mm[Hg] Blood Pressure Diastolic (8462-4) 71 mm[Hg] 01/04/2025 11:29 PM Temperature (8310-5) 98.1 [degF] Oxygen Saturation (45462-0) 96 % Respiratory Rate (9279-1) 14 /min Heart Rate (8867-4) 87 /min Blood Pressure Systolic (8480-6) 118 mm[Hg] Blood Pressure Diastolic (8462-4) 70 mm[Hg] 01/05/2025 06:32 AM Temperature (8310-5) 98.6 [degF] Oxygen Saturation (88380-9) 95 % Respiratory Rate (9279-1) 19 /min Heart Rate (8867-4) 72 /min Blood Pressure Systolic (8480-6) 122 mm[Hg] Blood Pressure Diastolic (8462-4) 66 mm[Hg] 01/06/2025 12:39 AM Temperature (8310-5) 98.6 [degF] Oxygen Saturation (79449-3) 97 % Respiratory Rate (9279-1) 18 /min Heart Rate (8867-4) 88 /min Blood Pressure Systolic (8480-6) 110 mm[Hg] Blood Pressure Diastolic (8462-4) 69 mm[Hg] 01/06/2025 06:50 AM Temperature (8310-5) 98.2 [degF] Oxygen Saturation (35095-5) 98 % Respiratory Rate (9279-1) 16 /min Heart Rate (8867-4) 80 /min Blood Pressure Systolic (8480-6) 118 mm[Hg] Blood Pressure Diastolic (8462-4) 58 mm[Hg] 01/07/2025 11:02 AM Temperature (8310-5) 98 [degF] Oxygen Saturation (86661-4) 97 % Respiratory Rate (9279-1) 18 /min Heart Rate (8867-4) 65 /min Blood Pressure Systolic (8480-6) 128 mm[Hg] Blood Pressure Diastolic (8462-4) 60 mm[Hg] 01/07/2025 09:35 PM Temperature (8310-5) 98 [degF] Oxygen Saturation (45983-7) 95 % Respiratory Rate (9279-1) 16 /min Heart Rate (8867-4) 78 /min Blood Pressure Systolic (8480-6) 120 mm[Hg] Blood Pressure Diastolic (8462-4) 78 mm[Hg] 01/08/2025 06:38 AM Temperature (8310-5) 98.2 [degF] Oxygen Saturation (21620-5) 96 % Respiratory Rate (9279-1) 18 /min Heart Rate (8867-4) 88 /min Blood Pressure Systolic (8480-6) 132 mm[Hg] Blood Pressure Diastolic (8462-4) 72 mm[Hg] 01/08/2025 08:53 PM Temperature (8310-5) 97 [degF] Oxygen Saturation (62564-3) 95 % Respiratory Rate (9279-1) 16 /min Heart Rate (8867-4) 88 /min Blood Pressure Systolic (8480-6) 132 mm[Hg] Blood Pressure Diastolic (8462-4) 70 mm[Hg] 01/09/2025 10:35 PM Temperature (8310-5) 98.6 [degF] Oxygen Saturation (53675-3) 96 % Respiratory Rate (9279-1) 20 /min Heart Rate (8867-4) 77 /min Blood Pressure Systolic (8480-6) 92 mm[Hg] Blood Pressure Diastolic (8462-4) 71 mm[Hg] 01/09/2025 06:26 PM Temperature (8310-5) 98 [degF] Oxygen Saturation (01644-8) 95 % Respiratory Rate (9279-1) 18 /min Heart Rate (8867-4) 94 /min Blood Pressure Systolic (8480-6) 117 mm[Hg] Blood Pressure Diastolic (8462-4) 89 mm[Hg] 01/10/2025 06:31 AM Temperature (8310-5) 98 [degF] Oxygen Saturation (04175-5) 97 % Respiratory Rate (9279-1) 16 /min Heart Rate (8867-4) 68 /min Blood Pressure Systolic (8480-6) 112 mm[Hg] Blood Pressure Diastolic (8462-4) 68 mm[Hg] 01/10/2025 10:10 PM Temperature (8310-5) 98.1 [degF] Oxygen Saturation (32947-9) 96 % Respiratory Rate (9279-1) 16 /min Heart Rate (8867-4) 75 /min Blood Pressure Systolic (8480-6) 98 mm[Hg] Blood Pressure Diastolic (8462-4) 63 mm[Hg] 01/11/2025 06:36 AM Temperature (8310-5) 97.4 [degF] Oxygen Saturation (40649-8) 97 % Respiratory Rate (9279-1) 19 /min Heart Rate (8867-4) 83 /min Blood Pressure Systolic (8480-6) 120 mm[Hg] Blood Pressure Diastolic (8462-4) 73 mm[Hg] 01/11/2025 08:44 PM Temperature (8310-5) 98.2 [degF] Oxygen Saturation (17010-5) 98 % Respiratory Rate (9279-1) 15 /min Heart Rate (8867-4) 76 /min Blood Pressure Systolic (8480-6) 110 mm[Hg] Blood Pressure Diastolic (8462-4) 62 mm[Hg] 01/12/2025 06:27 AM Temperature (8310-5) 98 [degF] Oxygen Saturation (65570-2) 96 % Respiratory Rate (9279-1) 18 /min Heart Rate (8867-4) 80 /min Blood Pressure Systolic (8480-6) 118 mm[Hg] Blood Pressure Diastolic (8462-4) 66 mm[Hg] 01/12/2025 08:41 PM Temperature (8310-5) 98.2 [degF] Oxygen Saturation (12436-1) 97 % Respiratory Rate (9279-1) 18 /min Heart Rate (8867-4) 95 /min Blood Pressure Systolic (8480-6) 117 mm[Hg] Blood Pressure Diastolic (8462-4) 77 mm[Hg] 01/14/2025 07:48 AM Temperature (8310-5) 97.3 [degF] Oxygen Saturation (03702-1) 96 % Respiratory Rate (9279-1) 19 /min Heart Rate (8867-4) 74 /min Blood Pressure Systolic (8480-6) 111 mm[Hg] Blood Pressure Diastolic (8462-4) 60 mm[Hg] 01/14/2025 02:18 AM Temperature (8310-5) 97 [degF] Oxygen Saturation (45219-3) 96 % Respiratory Rate (9279-1) 16 /min Heart Rate (8867-4) 80 /min Blood Pressure Systolic (8480-6) 132 mm[Hg] Blood Pressure Diastolic (8462-4) 80 mm[Hg] 01/14/2025 09:43 PM Temperature (8310-5) 98 [degF] Oxygen Saturation (94220-9) 95 % Respiratory Rate (9279-1) 16 /min Heart Rate (8867-4) 80 /min Blood Pressure Systolic (8480-6) 124 mm[Hg] Blood Pressure Diastolic (8462-4) 78 mm[Hg] 01/15/2025 07:52 AM Temperature (8310-5) 97.7 [degF] Oxygen Saturation (87018-7) 95 % Respiratory Rate (9279-1) 18 /min Heart Rate (8867-4) 90 /min Blood Pressure Systolic (8480-6) 134 mm[Hg] Blood Pressure Diastolic (8462-4) 70 mm[Hg] 01/15/2025 08:59 PM Temperature (8310-5) 97 [degF] Oxygen Saturation (51888-1) 96 % Respiratory Rate (9279-1) 18 /min Heart Rate (8867-4) 88 /min Blood Pressure Systolic (8480-6) 120 mm[Hg] Blood Pressure Diastolic (8462-4) 78 mm[Hg] 01/16/2025 01:34 PM Temperature (8310-5) 97.1 [degF] Oxygen Saturation (45248-2) 96 % Respiratory Rate (9279-1) 16 /min Heart Rate (8867-4) 77 /min Blood Pressure Systolic (8480-6) 140 mm[Hg] Blood Pressure Diastolic (8462-4) 71 mm[Hg] 01/16/2025 11:40 PM Temperature (8310-5) 98.1 [degF] Oxygen Saturation (17625-8) 94 % Respiratory Rate (9279-1) 15 /min Heart Rate (8867-4) 74 /min Blood Pressure Systolic (8480-6) 107 mm[Hg] Blood Pressure Diastolic (8462-4) 66 mm[Hg] 01/17/2025 10:22 AM Temperature (8310-5) 97.7 [degF] Oxygen Saturation (53511-9) 99 % Respiratory Rate (9279-1) 18 /min Heart Rate (8867-4) 90 /min Blood Pressure Systolic (8480-6) 129 mm[Hg] Blood Pressure Diastolic (8462-4) 87 mm[Hg] 01/18/2025 02:50 AM Temperature (8310-5) 96.8 [degF] Oxygen Saturation (09325-1) 95 % Respiratory Rate (9279-1) 16 /min Heart Rate (8867-4) 90 /min Blood Pressure Systolic (8480-6) 120 mm[Hg] Blood Pressure Diastolic (8462-4) 59 mm[Hg] 01/18/2025 01:05 PM Temperature (8310-5) 97 [degF] Oxygen Saturation (36435-2) 98 % Respiratory Rate (9279-1) 16 /min Heart Rate (8867-4) 86 /min Blood Pressure Systolic (8480-6) 98 mm[Hg] Blood Pressure Diastolic (8462-4) 61 mm[Hg] 01/18/2025 10:57 PM Temperature (8310-5) 97.8 [degF] Oxygen Saturation (48339-5) 90 % Respiratory Rate (9279-1) 17 /min Heart Rate (8867-4) 57 /min Blood Pressure Systolic (8480-6) 103 mm[Hg] Blood Pressure Diastolic (8462-4) 89 mm[Hg] 01/19/2025 06:34 AM Temperature (8310-5) 97.9 [degF] Oxygen Saturation (36306-9) 95 % Respiratory Rate (9279-1) 18 /min Heart Rate (8867-4) 68 /min Blood Pressure Systolic (8480-6) 116 mm[Hg] Blood Pressure Diastolic (8462-4) 61 mm[Hg] 01/19/2025 11:39 PM Temperature (8310-5) 98 [degF] Oxygen Saturation (12217-1) 95 % Respiratory Rate (9279-1) 18 /min Heart Rate (8867-4) 78 /min Blood Pressure Systolic (8480-6) 122 mm[Hg] Blood Pressure Diastolic (8462-4) 88 mm[Hg] 01/20/2025 06:39 AM Temperature (8310-5) 97.5 [degF] Oxygen Saturation (48099-2) 94 % Respiratory Rate (9279-1) 16 /min Heart Rate (8867-4) 66 /min Blood Pressure Systolic (8480-6) 132 mm[Hg] Blood Pressure Diastolic (8462-4) 64 mm[Hg] 01/20/2025 08:18 PM Temperature (8310-5) 98 [degF] Oxygen Saturation (25219-9) 96 % Respiratory Rate (9279-1) 16 /min Heart Rate (8867-4) 70 /min Blood Pressure Systolic (8480-6) 114 mm[Hg] Blood Pressure Diastolic (8462-4) 80 mm[Hg] 01/21/2025 09:27 AM Temperature (8310-5) 97.9 [degF] Oxygen Saturation (44386-9) 100 % Respiratory Rate (9279-1) 20 /min Heart Rate (8867-4) 79 /min Blood Pressure Systolic (8480-6) 109 mm[Hg] Blood Pressure Diastolic (8462-4) 58 mm[Hg] 01/21/2025 08:29 PM Temperature (8310-5) 98.2 [degF] Oxygen Saturation (93080-4) 95 % Respiratory Rate (9279-1) 16 /min Heart Rate (8867-4) 70 /min Blood Pressure Systolic (8480-6) 132 mm[Hg] Blood Pressure Diastolic (8462-4) 80 mm[Hg] 01/22/2025 09:20 AM Temperature (8310-5) 98 [degF] Oxygen Saturation (30533-1) 96 % Respiratory Rate (9279-1) 18 /min Heart Rate (8867-4) 85 /min Blood Pressure Systolic (8480-6) 176 mm[Hg] Blood Pressure Diastolic (8462-4) 85 mm[Hg] 01/22/2025 08:43 PM Temperature (8310-5) 97 [degF] Oxygen Saturation (13917-3) 95 % Respiratory Rate (9279-1) 16 /min Heart Rate (8867-4) 68 /min Blood Pressure Systolic (8480-6) 126 mm[Hg] Blood Pressure Diastolic (8462-4) 80 mm[Hg] 01/23/2025 09:40 AM Temperature (8310-5) 97.8 [degF] Oxygen Saturation (81491-9) 99 % Respiratory Rate (9279-1) 18 /min Heart Rate (8867-4) 76 /min Blood Pressure Systolic (8480-6) 116 mm[Hg] Blood Pressure Diastolic (8462-4) 68 mm[Hg] 01/23/2025 08:02 PM Temperature (8310-5) 97.6 [degF] Oxygen Saturation (25315-1) 98 % Respiratory Rate (9279-1) 18 /min Heart Rate (8867-4) 71 /min Blood Pressure Systolic (8480-6) 151 mm[Hg] Blood Pressure Diastolic (8462-4) 105 mm[Hg] 01/24/2025 07:03 AM Temperature (8310-5) 98 [degF] Oxygen Saturation (85922-5) 97 % Respiratory Rate (9279-1) 16 /min Heart Rate (8867-4) 70 /min Blood Pressure Systolic (8480-6) 132 mm[Hg] Blood Pressure Diastolic (8462-4) 66 mm[Hg] 01/24/2025 07:58 PM Temperature (8310-5) 98.3 [degF] Oxygen Saturation (73392-2) 97 % Respiratory Rate (9279-1) 15 /min Heart Rate (8867-4) 74 /min Blood Pressure Systolic (8480-6) 138 mm[Hg] Blood Pressure Diastolic (8462-4) 93 mm[Hg] 01/25/2025 06:28 AM Temperature (8310-5) 98 [degF] Oxygen Saturation (88797-6) 97 % Respiratory Rate (9279-1) 17 /min Heart Rate (8867-4) 65 /min Blood Pressure Systolic (8480-6) 141 mm[Hg] Blood Pressure Diastolic (8462-4) 85 mm[Hg] 01/25/2025 01:45 PM Body Weight (55277-6) 179.6 [lb_av ] Body Mass Index (68031-8) 27.31 kg/m2 01/25/2025 09:52 PM Temperature (8310-5) 98.3 [degF] Oxygen Saturation (69063-4) 97 % Respiratory Rate (9279-1) 15 /min Heart Rate (8867-4) 77 /min Blood Pressure Systolic (8480-6) 93 mm[Hg] Blood Pressure Diastolic (8462-4) 55 mm[Hg] 01/26/2025 06:34 AM Temperature (8310-5) 98 [degF] Oxygen Saturation (08116-6) 95 % Respiratory Rate (9279-1) 16 /min Heart Rate (8867-4) 70 /min Blood Pressure Systolic (8480-6) 118 mm[Hg] Blood Pressure Diastolic (8462-4) 62 mm[Hg] 01/27/2025 03:23 AM Temperature (8310-5) 97.8 [degF] Oxygen Saturation (32378-2) 94 % Respiratory Rate (9279-1) 18 /min Heart Rate (8867-4) 73 /min Blood Pressure Systolic (8480-6) 120 mm[Hg] Blood Pressure Diastolic (8462-4) 69 mm[Hg] 01/27/2025 09:14 AM Temperature (8310-5) 98.2 [degF] Oxygen Saturation (86882-0) 99 % Respiratory Rate (9279-1) 18 /min Heart Rate (8867-4) 78 /min Blood Pressure Systolic (8480-6) 105 mm[Hg] Blood Pressure Diastolic (8462-4) 60 mm[Hg] 01/27/2025 09:08 PM Temperature (8310-5) 98 [degF] Oxygen Saturation (78119-1) 95 % Respiratory Rate (9279-1) 18 /min Heart Rate (8867-4) 88 /min Blood Pressure Systolic (8480-6) 132 mm[Hg] Blood Pressure Diastolic (8462-4) 78 mm[Hg] 01/28/2025 11:34 AM Temperature (8310-5) 97.7 [degF] Oxygen Saturation (71536-6) 92 % Respiratory Rate (9279-1) 16 /min Heart Rate (8867-4) 70 /min Blood Pressure Systolic (8480-6) 109 mm[Hg] Blood Pressure Diastolic (8462-4) 55 mm[Hg] 01/28/2025 10:17 PM Temperature (8310-5) 97 [degF] Oxygen Saturation (01926-3) 95 % Respiratory Rate (9279-1) 16 /min Heart Rate (8867-4) 88 /min Blood Pressure Systolic (8480-6) 132 mm[Hg] Blood Pressure Diastolic (8462-4) 88 mm[Hg] 01/29/2025 10:28 AM Temperature (8310-5) 97.6 [degF] Oxygen Saturation (33691-5) 94 % Respiratory Rate (9279-1) 22 /min Heart Rate (8867-4) 62 /min Blood Pressure Systolic (8480-6) 122 mm[Hg] Blood Pressure Diastolic (8462-4) 67 mm[Hg] 01/29/2025 08:55 PM Temperature (8310-5) 98 [degF] Oxygen Saturation (35936-1) 96 % Respiratory Rate (9279-1) 18 /min Heart Rate (8867-4) 80 /min Blood Pressure Systolic (8480-6) 132 mm[Hg] Blood Pressure Diastolic (8462-4) 88 mm[Hg] 01/30/2025 10:00 AM Temperature (8310-5) 96.8 [degF] Oxygen Saturation (29205-9) 99 % Respiratory Rate (9279-1) 20 /min Heart Rate (8867-4) 64 /min Blood Pressure Systolic (8480-6) 100 mm[Hg] Blood Pressure Diastolic (8462-4) 68 mm[Hg] 01/31/2025 01:20 AM Temperature (8310-5) 97 [degF] Oxygen Saturation (03364-5) 98 % Respiratory Rate (9279-1) 15 /min Heart Rate (8867-4) 85 /min Blood Pressure Systolic (8480-6) 123 mm[Hg] Blood Pressure Diastolic (8462-4) 62 mm[Hg] 01/31/2025 05:21 PM Temperature (8310-5) 98 [degF] Oxygen Saturation (49280-2) 96 % Respiratory Rate (9279-1) 16 /min Heart Rate (8867-4) 73 /min Blood Pressure Systolic (8480-6) 129 mm[Hg] Blood Pressure Diastolic (8462-4) 68 mm[Hg] 02/01/2025 04:22 AM Respiratory Rate (9279-1) 17 /min Blood Pressure Systolic (8480-6) 128 mm[Hg] Blood Pressure Diastolic (8462-4) 72 mm[Hg] 02/01/2025 04:17 AM Temperature (8310-5) 96.8 [degF] 02/01/2025 05:47 AM Temperature (8310-5) 97 [degF] Oxygen Saturation (37645-7) 96 % Respiratory Rate (9279-1) 18 /min Heart Rate (8867-4) 63 /min Blood Pressure Systolic (8480-6) 115 mm[Hg] Blood Pressure Diastolic (8462-4) 69 mm[Hg] 02/01/2025 04:23 AM Oxygen Saturation (79754-3) 98 % 02/01/2025 04:21 AM Heart Rate (8867-4) 65 /min 02/01/2025 09:44 PM Temperature (8310-5) 97.3 [degF] Heart Rate (8867-4) 65 /min 02/01/2025 09:48 PM Oxygen Saturation (14727-9) 97 % 02/01/2025 09:45 PM Respiratory Rate (9279-1) 17 /min 02/01/2025 09:46 PM Blood Pressure Systolic (8480-6) 1 18 mm[Hg] Blood Pressure Diastolic (8462-4) 67 mm[Hg] 02/02/2025 07:18 AM Body Weight (46904-8) 184.8 [lb_av ] Body Mass Index (33108-6) 28.1 kg/m2 02/02/2025 06:23 AM Temperature (8310-5) 98 [degF] Oxygen Saturation (91510-2) 97 % Respiratory Rate (9279-1) 18 /min Heart Rate (8867-4) 60 /min Blood Pressure Systolic (8480-6) 120 mm[Hg] Blood Pressure Diastolic (8462-4) 62 mm[Hg] 02/02/2025 08:06 PM Temperature (8310-5) 98.3 [degF] Oxygen Saturation (38894-5) 94 % Respiratory Rate (9279-1) 20 /min Heart Rate (8867-4) 62 /min Blood Pressure Systolic (8480-6) 107 mm[Hg] Blood Pressure Diastolic (8462-4) 56 mm[Hg] 02/03/2025 06:12 AM Temperature (8310-5) 98 [degF] Oxygen Saturation (97906-9) 96 % Respiratory Rate (9279-1) 16 /min Heart Rate (8867-4) 66 /min Blood Pressure Systolic (8480-6) 118 mm[Hg] Blood Pressure Diastolic (8462-4) 66 mm[Hg] 02/03/2025 07:26 PM Temperature (8310-5) 98.1 [degF] Oxygen Saturation (23251-3) 95 % Respiratory Rate (9279-1) 14 /min Heart Rate (8867-4) 66 /min Blood Pressure Systolic (8480-6) 112 mm[Hg] Blood Pressure Diastolic (8462-4) 62 mm[Hg] 02/04/2025 06:48 AM Temperature (8310-5) 98.2 [degF] Oxygen Saturation (94868-3) 96 % Respiratory Rate (9279-1) 16 /min Heart Rate (8867-4) 70 /min Blood Pressure Systolic (8480-6) 120 mm[Hg] Blood Pressure Diastolic (8462-4) 68 mm[Hg] 02/04/2025 07:54 PM Temperature (8310-5) 97.1 [degF] Oxygen Saturation (38711-8) 98 % Respiratory Rate (9279-1) 18 /min Heart Rate (8867-4) 62 /min Blood Pressure Systolic (8480-6) 135 mm[Hg] Blood Pressure Diastolic (8462-4) 77 mm[Hg] 02/05/2025 06:25 AM Temperature (8310-5) 97.5 [degF] Oxygen Saturation (67952-0) 94 % Respiratory Rate (9279-1) 16 /min Heart Rate (8867-4) 66 /min Blood Pressure Systolic (8480-6) 120 mm[Hg] Blood Pressure Diastolic (8462-4) 68 mm[Hg] 02/05/2025 08:01 PM Temperature (8310-5) 96.8 [degF] Oxygen Saturation (07960-2) 97 % Respiratory Rate (9279-1) 16 /min Heart Rate (8867-4) 70 /min Blood Pressure Systolic (8480-6) 98 mm[Hg] Blood Pressure Diastolic (8462-4) 61 mm[Hg] 02/06/2025 05:11 PM Temperature (8310-5) 97.1 [degF] Oxygen Saturation (01724-0) 97 % Respiratory Rate (9279-1) 19 /min Heart Rate (8867-4) 70 /min Blood Pressure Systolic (8480-6) 106 mm[Hg] Blood Pressure Diastolic (8462-4) 66 mm[Hg] 04/04/2025 11:32 AM Body Weight (17670-3) 179.4 [lb_av ] Body Mass Index (84219-9) 27.27 kg/m2 06/04/2025 06:28 AM Temperature (8310-5) 98 [degF] Oxygen Saturation (89625-1) 98 % Respiratory Rate (9279-1) 16 /min Heart Rate (8867-4) 84 /min Blood Pressure Systolic (8480-6) 130 mm[Hg] Blood Pressure Diastolic (8462-4) 72 mm[Hg] 03/22/2025 12:49 PM Body Weight (53012-1) 176.3 [lb_av ] Body Mass Index (50161-2) 26.8 kg/m2 05/28/2025 06:58 AM Temperature (8310-5) 98.5 [degF] Oxygen Saturation (92218-1) 97 % Respiratory Rate (9279-1) 15 /min Heart Rate (8867-4) 70 /min Blood Pressure Systolic (8480-6) 125 mm[Hg] Blood Pressure Diastolic (8462-4) 62 mm[Hg] 06/05/2025 06:32 AM Temperature (8310-5) 96 [degF] 06/02/2025 08:17 AM Temperature (8310-5) 97.9 [degF] Oxygen Saturation (97062-4) 98 % Respiratory Rate (9279-1) 18 /min Heart Rate (8867-4) 81 /min Blood Pressure Systolic (8480-6) 131 mm[Hg] Blood Pressure Diastolic (8462-4) 77 mm[Hg] 04/05/2025 01:37 PM Body Weight (77304-4) 180 [lb_av] Body Mass Index (01483-6) 27.37 kg/m2 05/29/2025 03:50 PM Temperature (8310-5) 97.3 [degF] Oxygen Saturation (60164-9) 98 % Respiratory Rate (9279-1) 16 /min Heart Rate (8867-4) 70 /min Blood Pressure Systolic (8480-6) 156 mm[Hg] Blood Pressure Diastolic (8462-4) 66 mm[Hg] 06/03/2025 07:09 PM Temperature (8310-5) 97.6 [degF] 05/30/2025 06:31 AM Temperature (8310-5) 98 [degF] Oxygen Saturation (66488-8) 97 % Respiratory Rate (9279-1) 19 /min Heart Rate (8867-4) 77 /min Blood Pressure Systolic (8480-6) 135 mm[Hg] Blood Pressure Diastolic (8462-4) 72 mm[Hg] 06/05/2025 06:51 AM Oxygen Saturation (26180-2) 99 % Respiratory Rate (9279-1) 16 /min Heart Rate (8867-4) 83 /min Blood Pressure Systolic (8480-6) 122 mm[Hg] Blood Pressure Diastolic (8462-4) 71 mm[Hg] 03/29/2025 08:53 AM Body Weight (03705-6) 176.8 [lb_av ] Body Mass Index (97159-2) 26.88 kg/m2 03/16/2025 02:05 PM Body Weight (35176-4) 177.8 [lb_av ] Body Mass Index (67983-3) 27.03 kg/m2 05/31/2025 10:47 AM Temperature (8310-5) 98.6 [degF] Oxygen Saturation (20816-7) 98 % Respiratory Rate (9279-1) 16 /min Blood Pressure Systolic (8480-6) 132 mm[Hg] Blood Pressure Diastolic (8462-4) 69 mm[Hg] 03/09/2025 09:05 AM Body Weight (27091-9) 176 [lb_av] Body Mass Index (67385-5) 26.76 kg/m2 03/08/2025 02:25 PM Body Weight (12443-1) 176.2 [lb_av ] Body Mass Index (33993-5) 26.79 kg/m2 06/03/2025 09:24 AM Temperature (8310-5) 97.8 [degF] Oxygen Saturation (20188-9) 96 % Respiratory Rate (9279-1) 18 /min Heart Rate (8867-4) 79 /min Blood Pressure Systolic (8480-6) 142 mm[Hg] Blood Pressure Diastolic (8462-4) 68 mm[Hg] 05/27/2025 06:27 AM Oxygen Saturation (78846-2) 96 % Respiratory Rate (9279-1) 16 /min Heart Rate (8867-4) 75 /min Blood Pressure Systolic (8480-6) 120 mm[Hg] Blood Pressure Diastolic (8462-4) 58 mm[Hg] 05/05/2025 10:44 AM Body Weight (27745-3) 180.2 [lb_av ] Body Mass Index (38230-2) 27.4 kg/m2 06/01/2025 06:36 AM Temperature (8310-5) 98 [degF] Oxygen Saturation (95014-3) 99 % Respiratory Rate (9279-1) 16 /min Heart Rate (8867-4) 72 /min Blood Pressure Systolic (8480-6) 129 mm[Hg] Blood Pressure Diastolic (8462-4) 74 mm[Hg] 05/31/2025 06:29 AM Heart Rate (8867-4) 64 /min 03/14/2025 04:47 AM Body Weight (31052-7) 177.4 [lb_av ] Body Mass Index (88712-9) 26.97 kg/m2 06/05/2025 06:52 AM Body Weight (48596-2) 179 [lb_av] Body Mass Index (73247-3) 27.21 kg/m2 06/15/2025 05:13 AM Body Weight (37992-7) 175.6 [lb_av ] Body Mass Index (71539-2) 26.7 kg/m2 06/15/2025 06:40 AM Temperature (8310-5) 98 [degF] Oxygen Saturation (21986-1) 98 % Respiratory Rate (9279-1) 16 /min Heart Rate (8867-4) 75 /min Blood Pressure Systolic (8480-6) 118 mm[Hg] Blood Pressure Diastolic (8462-4) 52 mm[Hg] 06/16/2025 06:41 AM Temperature (8310-5) 98.2 [degF] Oxygen Saturation (63951-7) 97 % Respiratory Rate (9279-1) 18 /min Heart Rate (8867-4) 70 /min Blood Pressure Systolic (8480-6) 122 mm[Hg] Blood Pressure Diastolic (8462-4) 69 mm[Hg] 06/17/2025 01:44 PM Temperature (8310-5) 98.7 [degF] Oxygen Saturation (86057-3) 96 % Respiratory Rate (9279-1) 20 /min Heart Rate (8867-4) 64 /min Blood Pressure Systolic (8480-6) 140 mm[Hg] Blood Pressure Diastolic (8462-4) 61 mm[Hg] 06/18/2025 03:06 PM Temperature (8310-5) 98.5 [degF] Oxygen Saturation (96474-3) 94 % Respiratory Rate (9279-1) 17 /min Heart Rate (8867-4) 60 /min Blood Pressure Systolic (8480-6) 102 mm[Hg] Blood Pressure Diastolic (8462-4) 60 mm[Hg] 06/19/2025 09:33 AM Temperature (8310-5) 98.3 [degF] Oxygen Saturation (78072-3) 96 % Respiratory Rate (9279-1) 20 /min Heart Rate (8867-4) 71 /min Blood Pressure Systolic (8480-6) 173 mm[Hg] Blood Pressure Diastolic (8462-4) 57 mm[Hg] 06/20/2025 09:12 AM Temperature (8310-5) 98.7 [degF] Oxygen Saturation (57324-6) 98 % Respiratory Rate (9279-1) 20 /min Heart Rate (8867-4) 76 /min Blood Pressure Systolic (8480-6) 144 mm[Hg] Blood Pressure Diastolic (8462-4) 81 mm[Hg] 06/21/2025 12:25 PM Temperature (8310-5) 97.6 [degF] Oxygen Saturation (16631-4) 96 % Respiratory Rate (9279-1) 18 /min Heart Rate (8867-4) 72 /min Blood Pressure Systolic (8480-6) 134 mm[Hg] Blood Pressure Diastolic (8462-4) 78 mm[Hg] 06/22/2025 06:26 AM Temperature (8310-5) 98 [degF] Oxygen Saturation (73702-6) 97 % Respiratory Rate (9279-1) 16 /min Heart Rate (8867-4) 77 /min Blood Pressure Systolic (8480-6) 132 mm[Hg] Blood Pressure Diastolic (8462-4) 66 mm[Hg] 06/23/2025 06:23 AM Temperature (8310-5) 98.6 [degF] Oxygen Saturation (24504-7) 98 % Respiratory Rate (9279-1) 18 /min Heart Rate (8867-4) 66 /min Blood Pressure Systolic (8480-6) 126 mm[Hg] Blood Pressure Diastolic (8462-4) 68 mm[Hg] 06/24/2025 06:23 AM Temperature (8310-5) 98 [degF] Oxygen Saturation (37617-8) 99 % Respiratory Rate (9279-1) 16 /min Heart Rate (8867-4) 75 /min Blood Pressure Systolic (8480-6) 126 mm[Hg] Blood Pressure Diastolic (8462-4) 74 mm[Hg] 06/25/2025 06:32 AM Temperature (8310-5) 98.2 [degF] Oxygen Saturation (61445-4) 98 % Respiratory Rate (9279-1) 18 /min Heart Rate (8867-4) 77 /min Blood Pressure Systolic (8480-6) 120 mm[Hg] Blood Pressure Diastolic (8462-4) 66 mm[Hg] 06/26/2025 02:22 PM Temperature (8310-5) 97.7 [degF] Oxygen Saturation (34121-7) 97 % Respiratory Rate (9279-1) 20 /min Heart Rate (8867-4) 70 /min Blood Pressure Systolic (8480-6) 117 mm[Hg] Blood Pressure Diastolic (8462-4) 69 mm[Hg] 06/27/2025 07:23 AM Temperature (8310-5) 98.3 [degF] Oxygen Saturation (86035-4) 98 % Respiratory Rate (9279-1) 16 /min Heart Rate (8867-4) 78 /min Blood Pressure Systolic (8480-6) 126 mm[Hg] Blood Pressure Diastolic (8462-4) 70 mm[Hg] 06/28/2025 07:43 AM Temperature (8310-5) 98.2 [degF] Oxygen Saturation (72441-2) 94 % Respiratory Rate (9279-1) 20 /min Heart Rate (8867-4) 76 /min Blood Pressure Systolic (8480-6) 118 mm[Hg] Blood Pressure Diastolic (8462-4) 72 mm[Hg] 06/29/2025 06:40 AM Temperature (8310-5) 98.1 [degF] Oxygen Saturation (66017-8) 98 % Respiratory Rate (9279-1) 15 /min Heart Rate (8867-4) 63 /min Blood Pressure Systolic (8480-6) 136 mm[Hg] Blood Pressure Diastolic (8462-4) 79 mm[Hg] 06/30/2025 06:28 AM Temperature (8310-5) 97.7 [degF] Oxygen Saturation (47157-3) 98 % Respiratory Rate (9279-1) 16 /min Heart Rate (8867-4) 63 /min Blood Pressure Systolic (8480-6) 130 mm[Hg] Blood Pressure Diastolic (8462-4) 68 mm[Hg] 07/01/2025 07:09 AM Temperature (8310-5) 97.2 [degF] Oxygen Saturation (77520-6) 99 % Respiratory Rate (9279-1) 20 /min Heart Rate (8867-4) 73 /min Blood Pressure Systolic (8480-6) 136 mm[Hg] Blood Pressure Diastolic (8462-4) 77 mm[Hg] 07/01/2025 12:50 PM Temperature (8310-5) 97.5 [degF] 07/01/2025 06:08 PM Temperature (8310-5) 98.6 [degF] 07/02/2025 04:02 PM Temperature (8310-5) 98.1 [degF] 07/02/2025 09:41 AM Temperature (8310-5) 98.2 [degF] Oxygen Saturation (82260-2) 97 % Respiratory Rate (9279-1) 20 /min Heart Rate (8867-4) 63 /min Blood Pressure Systolic (8480-6) 134 mm[Hg] Blood Pressure Diastolic (8462-4) 77 mm[Hg] 07/03/2025 06:52 AM Temperature (8310-5) 98.2 [degF] Oxygen Saturation (42381-9) 98 % Respiratory Rate (9279-1) 16 /min Heart Rate (8867-4) 72 /min Blood Pressure Systolic (8480-6) 120 mm[Hg] Blood Pressure Diastolic (8462-4) 69 mm[Hg] 07/04/2025 08:46 AM Temperature (8310-5) 98.1 [degF] Oxygen Saturation (57826-0) 98 % Respiratory Rate (9279-1) 17 /min Heart Rate (8867-4) 63 /min Blood Pressure Systolic (8480-6) 112 mm[Hg] Blood Pressure Diastolic (8462-4) 70 mm[Hg] 07/05/2025 11:12 AM Body Weight (28386-8) 176 [lb_av] Body Mass Index (40657-8) 26.76 kg/m2 07/05/2025 09:33 AM Temperature (8310-5) 98.3 [degF] Oxygen Saturation (12289-2) 95 % Respiratory Rate (9279-1) 18 /min Heart Rate (8867-4) 92 /min Blood Pressure Systolic (8480-6) 124 mm[Hg] Blood Pressure Diastolic (8462-4) 72 mm[Hg] 07/05/2025 11:39 PM Oxygen Saturation (12304-4) 96 % Respiratory Rate (9279-1) 18 /min Heart Rate (8867-4) 77 /min Blood Pressure Systolic (8480-6) 157 mm[Hg] Blood Pressure Diastolic (8462-4) 75 mm[Hg] 07/05/2025 11:38 PM Temperature (8310-5) 97.2 [degF] 07/06/2025 06:48 AM Temperature (8310-5) 97.8 [degF] Oxygen Saturation (33961-1) 99 % Respiratory Rate (9279-1) 20 /min Heart Rate (8867-4) 74 /min Blood Pressure Systolic (8480-6) 158 mm[Hg] Blood Pressure Diastolic (8462-4) 70 mm[Hg] 07/07/2025 06:24 AM Temperature (8310-5) 97.9 [degF] Oxygen Saturation (91303-4) 97 % Respiratory Rate (9279-1) 18 /min Heart Rate (8867-4) 68 /min Blood Pressure Systolic (8480-6) 142 mm[Hg] Blood Pressure Diastolic (8462-4) 59 mm[Hg] 07/07/2025 03:24 AM Oxygen Saturation (85943-6) 96 % 07/07/2025 03:23 AM Respiratory Rate (9279-1) 17 /min Blood Pressure Systolic (8480-6) 159 mm[Hg] Blood Pressure Diastolic (8462-4) 82 mm[Hg] 07/07/2025 03:22 AM Temperature (8310-5) 97.5 [degF] Heart Rate (8867-4) 76 /min 07/08/2025 06:33 AM Temperature (8310-5) 98.5 [degF] Oxygen Saturation (80752-1) 98 % Respiratory Rate (9279-1) 16 /min Heart Rate (8867-4) 70 /min Blood Pressure Systolic (8480-6) 136 mm[Hg] Blood Pressure Diastolic (8462-4) 62 mm[Hg] 07/08/2025 11:44 PM Temperature (8310-5) 98.5 [degF] 07/09/2025 06:06 AM Temperature (8310-5) 97.9 [degF] Oxygen Saturation (35090-4) 97 % Respiratory Rate (9279-1) 16 /min Heart Rate (8867-4) 66 /min Blood Pressure Systolic (8480-6) 120 mm[Hg] Blood Pressure Diastolic (8462-4) 76 mm[Hg] 07/10/2025 10:45 AM Temperature (8310-5) 98.3 [degF] Oxygen Saturation (11292-8) 99 % Respiratory Rate (9279-1) 20 /min Heart Rate (8867-4) 73 /min Blood Pressure Systolic (8480-6) 134 mm[Hg] Blood Pressure Diastolic (8462-4) 75 mm[Hg] 07/10/2025 08:15 PM Oxygen Saturation (98919-8) 98 % 07/10/2025 08:14 PM Temperature (8310-5) 97.2 [degF] Respiratory Rate (9279-1) 18 /min Heart Rate (8867-4) 100 /min Blood Pressure Systolic (8480-6) 134 mm[Hg] Blood Pressure Diastolic (8462-4) 66 mm[Hg] 07/11/2025 06:35 AM Temperature (8310-5) 98.2 [degF] Oxygen Saturation (79392-4) 99 % Respiratory Rate (9279-1) 20 /min Heart Rate (8867-4) 75 /min Blood Pressure Systolic (8480-6) 119 mm[Hg] Blood Pressure Diastolic (8462-4) 73 mm[Hg] 07/11/2025 07:36 PM Oxygen Saturation (11246-0) 98 % 07/11/2025 07:35 PM Respiratory Rate (9279-1) 18 /min Heart Rate (8867-4) 63 /min Blood Pressure Systolic (8480-6) 122 mm[Hg] Blood Pressure Diastolic (8462-4) 76 mm[Hg] 07/11/2025 07:34 PM Temperature (8310-5) 97.2 [degF] 07/12/2025 07:12 AM Temperature (8310-5) 98 [degF] Oxygen Saturation (68738-0) 95 % Respiratory Rate (9279-1) 20 /min Heart Rate (8867-4) 70 /min Blood Pressure Systolic (8480-6) 139 mm[Hg] Blood Pressure Diastolic (8462-4) 74 mm[Hg] 07/12/2025 09:55 PM Oxygen Saturation (55381-0) 98 % 07/12/2025 09:53 PM Blood Pressure Systolic (8480-6) 1 25 mm[Hg] Blood Pressure Diastolic (8462-4) 90 mm[Hg] 07/12/2025 09:42 PM Respiratory Rate (9279-1) 18 /min Heart Rate (8867-4) 96 /min 07/13/2025 07:04 AM Temperature (8310-5) 98.6 [degF] Oxygen Saturation (20091-6) 99 % Respiratory Rate (9279-1) 19 /min Heart Rate (8867-4) 69 /min Blood Pressure Systolic (8480-6) 131 mm[Hg] Blood Pressure Diastolic (8462-4) 79 mm[Hg] 07/13/2025 07:03 PM Temperature (8310-5) 98.4 [degF] Oxygen Saturation (84885-6) 98 % Respiratory Rate (9279-1) 19 /min Heart Rate (8867-4) 79 /min Blood Pressure Systolic (8480-6) 115 mm[Hg] Blood Pressure Diastolic (8462-4) 74 mm[Hg] 07/14/2025 09:59 AM Temperature (8310-5) 97.4 [degF] Oxygen Saturation (63137-4) 95 % Respiratory Rate (9279-1) 20 /min Heart Rate (8867-4) 75 /min Blood Pressure Systolic (8480-6) 129 mm[Hg] Blood Pressure Diastolic (8462-4) 69 mm[Hg] 07/15/2025 07:31 AM Temperature (8310-5) 97.5 [degF] 07/15/2025 08:53 AM Temperature (8310-5) 98.9 [degF] Oxygen Saturation (64265-0) 99 % Respiratory Rate (9279-1) 20 /min Heart Rate (8867-4) 75 /min Blood Pressure Systolic (8480-6) 128 mm[Hg] Blood Pressure Diastolic (8462-4) 70 mm[Hg] 07/16/2025 07:40 AM Oxygen Saturation (49287-0) 95 % Respiratory Rate (9279-1) 17 /min Heart Rate (8867-4) 86 /min Blood Pressure Systolic (8480-6) 143 mm[Hg] Blood Pressure Diastolic (8462-4) 96 mm[Hg] 07/16/2025 07:17 AM Temperature (8310-5) 97.5 [degF] 07/17/2025 09:57 AM Temperature (8310-5) 98 [degF] Oxygen Saturation (89881-1) 99 % Respiratory Rate (9279-1) 20 /min Heart Rate (8867-4) 62 /min Blood Pressure Systolic (8480-6) 134 mm[Hg] Blood Pressure Diastolic (8462-4) 82 mm[Hg] 07/18/2025 08:03 AM Temperature (8310-5) 98.5 [degF] Oxygen Saturation (76108-0) 98 % Respiratory Rate (9279-1) 16 /min Heart Rate (8867-4) 99 /min Blood Pressure Systolic (8480-6) 123 mm[Hg] Blood Pressure Diastolic (8462-4) 62 mm[Hg] 07/19/2025 06:57 AM Temperature (8310-5) 98.6 [degF] Oxygen Saturation (64102-5) 98 % Respiratory Rate (9279-1) 20 /min Heart Rate (8867-4) 100 /min Blood Pressure Systolic (8480-6) 126 mm[Hg] Blood Pressure Diastolic (8462-4) 66 mm[Hg] 07/20/2025 08:29 AM Temperature (8310-5) 98.1 [degF] Oxygen Saturation (78238-3) 98 % Respiratory Rate (9279-1) 18 /min Heart Rate (8867-4) 72 /min Blood Pressure Systolic (8480-6) 136 mm[Hg] Blood Pressure Diastolic (8462-4) 81 mm[Hg] 07/21/2025 06:33 AM Temperature (8310-5) 98.2 [degF] Oxygen Saturation (94837-9) 97 % Respiratory Rate (9279-1) 16 /min Heart Rate (8867-4) 77 /min Blood Pressure Systolic (8480-6) 126 mm[Hg] Blood Pressure Diastolic (8462-4) 66 mm[Hg] 07/22/2025 07:52 AM Temperature (8310-5) 97.3 [degF] Oxygen Saturation (58028-9) 97 % Respiratory Rate (9279-1) 18 /min [...] 64 /min 07/23/2025 10:41 AM Oxygen Saturation (35691-9) 98 % 07/24/2025 10:50 AM Oxygen Saturation (39803-4) 96 % 07/24/2025 10:49 AM Temperature (8310-5) 97.5 [degF] Respiratory Rate (9279-1) 18 /min Heart Rate (8867-4) 77 /min Blood Pressure Systolic (8480-6) 120 mm[Hg] Blood Pressure Diastolic (8462-4) 60 mm[Hg] 07/25/2025 08:21 AM Temperature (8310-5) 98.6 [degF] Oxygen Saturation (28210-2) 94 % Respiratory Rate (9279-1) 20 /min Heart Rate (8867-4) 72 /min Blood Pressure Systolic (8480-6) 132 mm[Hg] Blood Pressure Diastolic (8462-4) 70 mm[Hg] 07/26/2025 09:41 AM Temperature (8310-5) 97.8 [degF] Oxygen Saturation (69058-6) 98 % Respiratory Rate (9279-1) 20 /min Heart Rate (8867-4) 86 /min Blood Pressure Systolic (8480-6) 111 mm[Hg] Blood Pressure Diastolic (8462-4) 63 mm[Hg] 07/26/2025 07:02 PM Temperature (8310-5) 97.8 [degF] 07/27/2025 06:48 AM Temperature (8310-5) 96.4 [degF] Oxygen Saturation (54351-1) 94 % Respiratory Rate (9279-1) 20 /min Heart Rate (8867-4) 67 /min Blood Pressure Systolic (8480-6) 120 mm[Hg] Blood Pressure Diastolic (8462-4) 72 mm[Hg] 07/28/2025 10:00 AM Oxygen Saturation (84307-4) 95 % Respiratory Rate (9279-1) 17 /min Heart Rate (8867-4) 70 /min Blood Pressure Systolic (8480-6) 110 mm[Hg] Blood Pressure Diastolic (8462-4) 70 mm[Hg] 07/28/2025 07:41 AM Temperature (8310-5) 98.1 [degF] 07/29/2025 09:22 AM Temperature (8310-5) 97.3 [degF] Oxygen Saturation (64335-4) 99 % Respiratory Rate (9279-1) 22 /min Heart Rate (8867-4) 59 /min Blood Pressure Systolic (8480-6) 105 mm[Hg] Blood Pressure Diastolic (8462-4) 64 mm[Hg] 07/29/2025 05:21 PM Temperature (8310-5) 97.5 [degF] 07/30/2025 08:26 AM Temperature (8310-5) 98.3 [degF] Oxygen Saturation (04414-8) 98 % Respiratory Rate (9279-1) 13 /min Heart Rate (8867-4) 79 /min Blood Pressure Systolic (8480-6) 144 mm[Hg] Blood Pressure Diastolic (8462-4) 68 mm[Hg] 07/31/2025 07:21 PM Temperature (8310-5) 97.5 [degF] 07/31/2025 07:22 PM Oxygen Saturation (89820-3) 95 % Respiratory Rate (9279-1) 18 /min Heart Rate (8867-4) 89 /min Blood Pressure Systolic (8480-6) 112 mm[Hg] Blood Pressure Diastolic (8462-4) 72 mm[Hg] 08/01/2025 07:30 AM Temperature (8310-5) 98.2 [degF] Oxygen Saturation (18837-5) 97 % Respiratory Rate (9279-1) 20 /min Heart Rate (8867-4) 77 /min Blood Pressure Systolic (8480-6) 118 mm[Hg] Blood Pressure Diastolic (8462-4) 53 mm[Hg] 08/02/2025 01:21 PM Temperature (8310-5) 97.8 [degF] Oxygen Saturation (41342-1) 97 % Respiratory Rate (9279-1) 20 /min Heart Rate (8867-4) 69 /min Blood Pressure Systolic (8480-6) 108 mm[Hg] Blood Pressure Diastolic (8462-4) 56 mm[Hg] 08/03/2025 08:16 AM Temperature (8310-5) 97.5 [degF] Oxygen Saturation (94873-4) 97 % Respiratory Rate (9279-1) 20 /min Heart Rate (8867-4) 61 /min Blood Pressure Systolic (8480-6) 115 mm[Hg] Blood Pressure Diastolic (8462-4) 65 mm[Hg] 08/04/2025 06:31 AM Temperature (8310-5) 98.2 [degF] Oxygen Saturation (08194-1) 98 % Respiratory Rate (9279-1) 16 /min Heart Rate (8867-4) 66 /min Blood Pressure Systolic (8480-6) 123 mm[Hg] Blood Pressure Diastolic (8462-4) 68 mm[Hg] 08/05/2025 06:38 AM Temperature (8310-5) 98 [degF] Oxygen Saturation (65305-8) 97 % Respiratory Rate (9279-1) 18 /min Heart Rate (8867-4) 60 /min Blood Pressure Systolic (8480-6) 135 mm[Hg] Blood Pressure Diastolic (8462-4) 62 mm[Hg] 08/05/2025 01:36 PM Body Weight (69009-9) 174 [lb_av] Body Mass Index (32218-4) 26.45 kg/m2 08/06/2025 06:44 AM Temperature (8310-5) 97.7 [degF] Oxygen Saturation (94173-6) 90 % Respiratory Rate (9279-1) 17 /min Blood Pressure Systolic (8480-6) 152 mm[Hg] Blood Pressure Diastolic (8462-4) 84 mm[Hg] 08/06/2025 06:27 AM Heart Rate (8867-4) 62 /min 08/11/2025 07:30 AM Oxygen Saturation (72388-3) 94 % Respiratory Rate (9279-1) 18 /min Heart Rate (8867-4) 65 /min Blood Pressure Systolic (8480-6) 137 mm[Hg] Blood Pressure Diastolic (8462-4) 71 mm[Hg] 08/11/2025 07:28 AM Temperature (8310-5) 98 [degF] 08/11/2025 04:30 PM Temperature (8310-5) 97.8 [degF] 08/11/2025 12:27 PM Body Weight (60002-3) 175.2 [lb_av ] Body Mass Index (97317-3) 26.64 kg/m2 08/12/2025 10:51 AM Temperature (8310-5) 97.7 [degF] Oxygen Saturation (26395-6) 99 % Respiratory Rate (9279-1) 20 /min Heart Rate (8867-4) 67 /min Blood Pressure Systolic (8480-6) 122 mm[Hg] Blood Pressure Diastolic (8462-4) 84 mm[Hg] 08/13/2025 11:27 AM Temperature (8310-5) 97.1 [degF] Oxygen Saturation (62606-7) 97 % Respiratory Rate (9279-1) 20 /min Heart Rate (8867-4) 91 /min Blood Pressure Systolic (8480-6) 130 mm[Hg] Blood Pressure Diastolic (8462-4) 78 mm[Hg] 08/13/2025 09:56 AM Temperature (8310-5) 97.1 [degF] 08/14/2025 09:12 AM Temperature (8310-5) 97.8 [degF] Oxygen Saturation (13468-7) 96 % Respiratory Rate (9279-1) 20 /min Heart Rate (8867-4) 63 /min Blood Pressure Systolic (8480-6) 115 mm[Hg] Blood Pressure Diastolic (8462-4) 79 mm[Hg] 08/15/2025 08:46 AM Temperature (8310-5) 98.6 [degF] Oxygen Saturation (46568-6) 99 % Respiratory Rate (9279-1) 16 /min Heart Rate (8867-4) 90 /min Blood Pressure Systolic (8480-6) 128 mm[Hg] Blood Pressure Diastolic (8462-4) 64 mm[Hg] 08/15/2025 06:58 AM Temperature (8310-5) 97.5 [degF] 08/16/2025 09:23 AM Temperature (8310-5) 97.9 [degF] Oxygen Saturation (12512-3) 98 % Respiratory Rate (9279-1) 15 /min Heart Rate (8867-4) 80 /min Blood Pressure Systolic (8480-6) 110 mm[Hg] Blood Pressure Diastolic (8462-4) 58 mm[Hg] 08/17/2025 06:57 AM Temperature (8310-5) 98.3 [degF] Oxygen Saturation (23596-1) 99 % Respiratory Rate (9279-1) 16 /min Heart Rate (8867-4) 75 /min Blood Pressure Systolic (8480-6) 120 mm[Hg] Blood Pressure Diastolic (8462-4) 62 mm[Hg] 08/18/2025 06:45 AM Temperature (8310-5) 98.6 [degF] Oxygen Saturation (14091-3) 98 % Respiratory Rate (9279-1) 16 /min Heart Rate (8867-4) 75 /min Blood Pressure Systolic (8480-6) 100 mm[Hg] Blood Pressure Diastolic (8462-4) 74 mm[Hg] 08/19/2025 06:32 AM Temperature (8310-5) 98 [degF] Oxygen Saturation (93920-0) 99 % Respiratory Rate (9279-1) 18 /min Heart Rate (8867-4) 84 /min Blood Pressure Systolic (8480-6) 120 mm[Hg] Blood Pressure Diastolic (8462-4) 58 mm[Hg] 08/20/2025 06:50 AM Temperature (8310-5) 98.1 [degF] Oxygen Saturation (96769-2) 98 % Respiratory Rate (9279-1) 18 /min Heart Rate (8867-4) 74 /min Blood Pressure Systolic (8480-6) 123 mm[Hg] Blood Pressure Diastolic (8462-4) 64 mm[Hg] 08/21/2025 08:52 AM Temperature (8310-5) 97.8 [degF] Oxygen Saturation (18634-2) 99 % Respiratory Rate (9279-1) 15 /min Heart Rate (8867-4) 80 /min Blood Pressure Systolic (8480-6) 112 mm[Hg] Blood Pressure Diastolic (8462-4) 64 mm[Hg] 08/22/2025 06:44 AM Temperature (8310-5) 97.9 [degF] Oxygen Saturation (07102-1) 99 % Respiratory Rate (9279-1) 14 /min Heart Rate (8867-4) 73 /min Blood Pressure Systolic (8480-6) 123 mm[Hg] Blood Pressure Diastolic (8462-4) 58 mm[Hg] 08/23/2025 08:24 AM Temperature (8310-5) 98 [degF] Oxygen Saturation (41397-7) 98 % Respiratory Rate (9279-1) 15 /min Heart Rate (8867-4) 76 /min Blood Pressure Systolic (8480-6) 106 mm[Hg] Blood Pressure Diastolic (8462-4) 62 mm[Hg] 08/24/2025 07:06 AM Temperature (8310-5) 97.7 [degF] Oxygen Saturation (77637-0) 97 % Respiratory Rate (9279-1) 20 /min Heart Rate (8867-4) 67 /min Blood Pressure Systolic (8480-6) 132 mm[Hg] Blood Pressure Diastolic (8462-4) 57 mm[Hg] 08/24/2025 03:38 PM Temperature (8310-5) 97.6 [degF] 08/25/2025 04:48 PM Temperature (8310-5) 98.4 [degF] Oxygen Saturation (99241-3) 96 % Respiratory Rate (9279-1) 20 /min Heart Rate (8867-4) 76 /min Blood Pressure Systolic (8480-6) 130 mm[Hg] Blood Pressure Diastolic (8462-4) 73 mm[Hg] 08/26/2025 11:07 AM Temperature (8310-5) 97.5 [degF] Oxygen Saturation (37058-9) 97 % Respiratory Rate (9279-1) 18 /min Heart Rate (8867-4) 71 /min Blood Pressure Systolic (8480-6) 118 mm[Hg] Blood Pressure Diastolic (8462-4) 61 mm[Hg] 08/27/2025 08:47 AM Temperature (8310-5) 97.9 [degF] Oxygen Saturation (71168-7) 96 % Respiratory Rate (9279-1) 18 /min Heart Rate (8867-4) 73 /min Blood Pressure Systolic (8480-6) 117 mm[Hg] Blood Pressure Diastolic (8462-4) 71 mm[Hg] 08/28/2025 07:33 AM Temperature (8310-5) 98 [degF] 08/28/2025 01:10 PM Temperature (8310-5) 98 [degF] Oxygen Saturation (85748-2) 94 % Respiratory Rate (9279-1) 16 /min Heart Rate (8867-4) 66 /min Blood Pressure Systolic (8480-6) 149 mm[Hg] Blood Pressure Diastolic (8462-4) 63 mm[Hg] 08/29/2025 07:59 AM Temperature (8310-5) 98.5 [degF] Oxygen Saturation (04372-4) 99 % Respiratory Rate (9279-1) 20 /min Heart Rate (8867-4) 61 /min Blood Pressure Systolic (8480-6) 127 mm[Hg] Blood Pressure Diastolic (8462-4) 57 mm[Hg] 08/30/2025 09:50 AM Temperature (8310-5) 97.9 [degF] Oxygen Saturation (89944-1) 97 % Respiratory Rate (9279-1) 13 /min Heart Rate (8867-4) 60 /min Blood Pressure Systolic (8480-6) 126 mm[Hg] Blood Pressure Diastolic (8462-4) 72 mm[Hg] 08/31/2025 06:55 AM Temperature (8310-5) 97.3 [degF] Oxygen Saturation (07438-1) 97 % Respiratory Rate (9279-1) 20 /min Heart Rate (8867-4) 62 /min Blood Pressure Systolic (8480-6) 131 mm[Hg] Blood Pressure Diastolic (8462-4) 69 mm[Hg] 09/01/2025 07:12 AM Temperature (8310-5) 98.6 [degF] Oxygen Saturation (38081-3) 99 % Respiratory Rate (9279-1) 18 /min Heart Rate (8867-4) 66 /min Blood Pressure Systolic (8480-6) 124 mm[Hg] Blood Pressure Diastolic (8462-4) 57 mm[Hg] 09/02/2025 06:54 AM Temperature (8310-5) 98.2 [degF] Oxygen Saturation (58383-7) 98 % Respiratory Rate (9279-1) 16 /min Heart Rate (8867-4) 60 /min Blood Pressure Systolic (8480-6) 120 mm[Hg] Blood Pressure Diastolic (8462-4) 67 mm[Hg] 09/03/2025 06:39 AM Temperature (8310-5) 98 [degF] Oxygen Saturation (93878-5) 99 % Respiratory Rate (9279-1) 18 /min Heart Rate (8867-4) 74 /min Blood Pressure Systolic (8480-6) 132 mm[Hg] Blood Pressure Diastolic (8462-4) 75 mm[Hg] 09/04/2025 01:52 PM Body Weight (25654-1) 172.9 [lb_av ] Body Mass Index (53326-8) 26.29 kg/m2 09/04/2025 11:24 AM Temperature (8310-5) 97.9 [degF] Oxygen Saturation (36948-1) 97 % Respiratory Rate (9279-1) 18 /min Heart Rate (8867-4) 76 /min Blood Pressure Systolic (8480-6) 115 mm[Hg] Blood Pressure Diastolic (8462-4) 94 mm[Hg] 09/05/2025 07:18 AM Temperature (8310-5) 97.6 [degF] Oxygen Saturation (05556-8) 97 % Respiratory Rate (9279-1) 22 /min Heart Rate (8867-4) 74 /min Blood Pressure Systolic (8480-6) 140 mm[Hg] Blood Pressure Diastolic (8462-4) 62 mm[Hg] 09/06/2025 06:37 AM Temperature (8310-5) 97.9 [degF] Oxygen Saturation (40725-3) 99 % Respiratory Rate (9279-1) 15 /min Heart Rate (8867-4) 78 /min Blood Pressure Systolic (8480-6) 123 mm[Hg] Blood Pressure Diastolic (8462-4) 78 mm[Hg] 09/07/2025 06:48 AM Temperature (8310-5) 97.8 [degF] Oxygen Saturation (21177-2) 93 % Respiratory Rate (9279-1) 20 /min Heart Rate (8867-4) 69 /min Blood Pressure Systolic (8480-6) 129 mm[Hg] Blood Pressure Diastolic (8462-4) 68 mm[Hg] 09/08/2025 08:45 AM Temperature (8310-5) 97.5 [degF] Oxygen Saturation (92601-9) 95 % Respiratory Rate (9279-1) 19 /min Heart Rate (8867-4) 70 /min Blood Pressure Systolic (8480-6) 130 mm[Hg] Blood Pressure Diastolic (8462-4) 67 mm[Hg] 09/09/2025 08:18 AM Temperature (8310-5) 97.5 [degF] Oxygen Saturation (76045-4) 95 % Respiratory Rate (9279-1) 19 /min Heart Rate (8867-4) 70 /min Blood Pressure Systolic (8480-6) 130 mm[Hg] Blood Pressure Diastolic (8462-4) 67 mm[Hg] 09/09/2025 03:08 PM Temperature (8310-5) 98.3 [degF] 09/10/2025 07:56 AM Temperature (8310-5) 97.3 [degF] Oxygen Saturation (25966-9) 97 % Respiratory Rate (9279-1) 17 /min Heart Rate (8867-4) 61 /min Blood Pressure Systolic (8480-6) 122 mm[Hg] Blood Pressure Diastolic (8462-4) 66 mm[Hg] 09/11/2025 12:11 PM Temperature (8310-5) 98.6 [degF] Oxygen Saturation (94978-4) 96 % Respiratory Rate (9279-1) 16 /min Heart Rate (8867-4) 58 /min Blood Pressure Systolic (8480-6) 100 mm[Hg] Blood Pressure Diastolic (8462-4) 58 mm[Hg] 09/12/2025 07:48 AM Temperature (8310-5) 97.9 [degF] Oxygen Saturation (28802-8) 97 % Respiratory Rate (9279-1) 12 /min Heart Rate (8867-4) 76 /min Blood Pressure Systolic (8480-6) 104 mm[Hg] Blood Pressure Diastolic (8462-4) 58 mm[Hg] 09/13/2025 10:32 AM Temperature (8310-5) 97.8 [degF] Oxygen Saturation (79899-0) 90 % Respiratory Rate (9279-1) 16 /min Heart Rate (8867-4) 58 /min Blood Pressure Systolic (8480-6) 136 mm[Hg] Blood Pressure Diastolic (8462-4) 70 mm[Hg] 09/14/2025 07:55 AM Temperature (8310-5) 97.8 [degF] Oxygen Saturation (18118-8) 98 % Respiratory Rate (9279-1) 20 /min Heart Rate (8867-4) 101 /min Blood Pressure Systolic (8480-6) 126 mm[Hg] Blood Pressure Diastolic (8462-4) 79 mm[Hg] 09/15/2025 07:29 AM Temperature (8310-5) 98.5 [degF] Oxygen Saturation (33086-8) 97 % Respiratory Rate (9279-1) 16 /min Heart Rate (8867-4) 84 /min Blood Pressure Systolic (8480-6) 128 mm[Hg] Blood Pressure Diastolic (8462-4) 71 mm[Hg] 09/16/2025 07:09 AM Temperature (8310-5) 97.6 [degF] Oxygen Saturation (76149-6) 98 % Respiratory Rate (9279-1) 18 /min Heart Rate (8867-4) 106 /min Blood Pressure Systolic (8480-6) 125 mm[Hg] Blood Pressure Diastolic (8462-4) 75 mm[Hg] 09/17/2025 07:05 AM Temperature (8310-5) 98 [degF] Oxygen Saturation (23101-8) 98 % Respiratory Rate (9279-1) 18 /min Heart Rate (8867-4) 92 /min Blood Pressure Systolic (8480-6) 140 mm[Hg] Blood Pressure Diastolic (8462-4) 87 mm[Hg] 09/18/2025 12:15 PM Temperature (8310-5) 97.5 [degF] Oxygen Saturation (81584-1) 96 % Respiratory Rate (9279-1) 20 /min Heart Rate (8867-4) 67 /min Blood Pressure Systolic (8480-6) 117 mm[Hg] Blood Pressure Diastolic (8462-4) 76 mm[Hg] 09/19/2025 07:08 AM Temperature (8310-5) 97.8 [degF] Oxygen Saturation (23531-5) 96 % Respiratory Rate (9279-1) 15 /min Heart Rate (8867-4) 79 /min Blood Pressure Systolic (8480-6) 116 mm[Hg] Blood Pressure Diastolic (8462-4) 72 mm[Hg] 09/20/2025 07:17 AM Temperature (8310-5) 98.6 [degF] Oxygen Saturation (67132-5) 96 % Respiratory Rate (9279-1) 20 /min Heart Rate (8867-4) 96 /min Blood Pressure Systolic (8480-6) 125 mm[Hg] Blood Pressure Diastolic (8462-4) 53 mm[Hg] 09/21/2025 07:07 AM Temperature (8310-5) 98.1 [degF] Oxygen Saturation (65054-2) 97 % Respiratory Rate (9279-1) 20 /min Heart Rate (8867-4) 67 /min Blood Pressure Systolic (8480-6) 127 mm[Hg] Blood Pressure Diastolic (8462-4) 65 mm[Hg] Social History No smoking Hx information [...] 10:23 PM Vinnie Landis Garcia DO 03 encounter report 11/18/2024 01:0 3 PM - 08/06/2025 07:03 PM Vinnie Landis Garcia DO 03 encounter report 11/18/2024 01:0 3 PM - 09/08/2025 03:34 PM Vinnie Landis Garcia DO 03 encounter report 11/18/2024 01:0 3 PM - 09/16/2025 04:49 PM Vinnie Landis Garcia DO 03 Advance Directives Directive Description Verification Date Supporting Document(s) Other Directive
[2025-09-21 11:56] LABS: Lactic Sepsis W/Reflex 4.2 mmol/L (0.5-2.2)
[2025-09-21] MEDS: piperacillin-tazobactam 3.375 GM in sodium chloride 0.9% (plus) 50 ML IV ×2 (12:25→20:03)
[2025-09-21 12:49] LABS: Reflex Lactate Order REFLEX LACTIC ORDERD
[2025-09-21] MEDS: fluconazole premix 200 MG/100 ML PREMIX 100 MG IV (13:29)
[2025-09-21 13:39] LABS: Lactic Acid level (Lactate) 3.8 mmol/L (0.5-2.2)
--- NOTE | 2025-09-21 15:31 | PC.NURSE ---
PATIENT TRANSPORTED TO ICU. PATIENT HAD BOWEL MOVEMENT PRIOR TO ICU ARRIVAL. THIS NURSE WAS UNAWARE OF PATIENT CONDITION AND ASKED PATIENT IF HE KNEW HE HAD BM. PATIENT STATES I DIDN'T KNOW I HAD. NURSE HELPED ICU TRANSFER PATIENT AND CLEAN PATIENT AT BEDSIDE. PATIENT MADE COMFORTABLE IN BED.
--- NOTE | 2025-09-21 15:47 | PM.HP ---
Providers/Chief Complaint Admitting Physician: Bonifacio Brooks Primary Care Provider: Trisha Urena MD Chief Complaint: ABD PAIN History of Present Illness Raphael Deal is a 75 year old male w/ pmhx of Alzheimer's disease, DM2, neuropathy, BPH, hx of prostate cancer, ALONSO(refuses CPAP), HTN, A-fib(not on long-term anticoagulation), obstructive pyelonephritis (09/2021) presents to the ED today w/ c/o significant ABD pain x 1wk and fever. patient states pain started about intermittently and with time became constant. He describes the pain as sharp and all over. He attempted to alleviate the pain by laying on his side, and fentanyl patches along with home pain medication. Pain persisted which brought him to the ED today. Patient denies headache, chest pain, shortness of breath, N/V/D, recent changes in medications. Patient to be admitted to hospitalist services for further medical management and care of complicated UTI. While in the ED a CBC, CMP, lactic acid, UA was obtained, reviewed and results as follows: WBC 13.42, Neut 10.15, RBC 3.69, Hgb 10.10, HCT 31.7, RDW 15.9, Plt 401. Na 138, K 3.2, Osmo 295, glucose 267. Lactic acid 4.2. UA as follows: Urine WBC > 100, urine RBC> 100, urine leukocyte esterase 3+, urine protein 2+, urine bacteria 2+, urine yeast 4+. Urine culture collected, pending. Blood cultures obtained, pending. While in ED patient received the following medications: Zosyn 3.375 g IV, 2,286mL NS IV bolus, Zofran 4 mg IVP, morphine 4 mg IVP. Review of Systems General: Reports: 10 or more systems reviewed and unremarkable except in HPI and below Medications/Allergies Home Medications ?Medication ?Instructions ?Recorded ?Confirmed ?Last Taken ?Type fluticasone 100 mcg-salmeterol 50 1 inh inhalation BID 10/03/21 09/21/25 09/21/25 History mcg/dose blistr powdr for inhalation (Wixela Inhub) acetaminophen 325 mg tablet 650 mg PO Q6H PRN Pain 07/02/23 09/21/25 09/16/25 History (Tylenol) flash glucose scanning reader #1 ea 08/25/23 09/21/25 Unknown Rx (FreeStyle Jimi 2 [place]mita) FreeStyle Jimi 2 Sensor (flash #6 ea 12/11/23 09/21/25 Unknown Rx glucose sensor) blood-glucose sensor (Dexcom G7 #3 ea 02/08/24 09/21/25 Unknown Rx Sensor device) blood-glucose,semiconductor technician,cont #1 ea 02/08/24 09/21/25 Unknown Rx (Dexcom G7 Watch Electrician) albuterol sulfate 90 mcg/actuation 2 puff inhalation Q4H PRN Dyspnea 04/27/24 09/21/25 09/05/25 History aerosol inhaler furosemide 20 mg tablet 20 mg PO DAILY 04/27/24 09/21/25 09/21/25 History atorvastatin 80 mg tablet 80 mg PO DAILY 11/26/24 09/21/25 09/21/25 History digoxin 125 mcg (0.125 mg) tablet 125 mcg PO DAILY 11/26/24 09/21/25 09/21/25 History fluticasone propionate 50 1 spray intranasal DAILY 11/26/24 09/21/25 09/21/25 History mcg/actuation nasal spray,suspension hydrocodone 7.5 mg-acetaminophen 1 tab PO BID PRN Pain 11/26/24 09/21/25 09/20/25 History 325 mg tablet insulin lispro 100 unit/mL See Rx Instructions .Route .COMPLEX 11/26/24 09/21/25 09/21/25 History subcutaneous pen omeprazole 20 mg capsule,delayed 20 mg PO DAILY 11/26/24 09/21/25 09/21/25 History release ondansetron HCl 4 mg tablet 4 mg PO TID PRN Nausea And Vomiting 11/26/24 09/21/25 09/17/25 History fentanyl 100 mcg/hr transdermal 100 mcg transdermal .Q3D 06/06/25 09/21/25 09/19/25 History patch insulin glargine 100 unit/mL (3 25 unit SUBCUT DAILY 06/06/25 09/21/25 09/21/25 History mL) subcutaneous pen (Lantus Solostar U-100 Insulin) insulin lispro 100 unit/mL 10 unit SUBCUT TIDWM 06/06/25 09/21/25 09/21/25 History subcutaneous pen nystatin 100,000 unit/gram topical 1 applic topical TID 06/06/25 09/21/25 09/21/25 History powder polyethylene glycol 3350 17 17 g PO DAILY PRN Constipation 06/06/25 09/21/25 04/22/25 History gram/dose oral powder (Miralax) simethicone 125 mg capsule See Rx Instructions .Route 06/06/25 09/21/25 09/21/25 History .COMPLEX PRN Gas ciprofloxacin HCl 500 mg tablet 500 mg PO .three times a week 08/30/25 09/21/25 09/08/25 History (Cipro) Lactobacillus acidophilus 25 25 cell (0 x 25 million cell) PO 09/08/25 09/21/25 09/21/25 Rx million cell capsule DAILY 30 days #30 caps ascorbic acid (vitamin C) 500 mg 1,000 mg PO DAILY 09/08/25 09/21/25 09/21/25 History tablet (Vitamin C) honey 80 % topical gel (MediHoney 1 applic topical BID 09/08/25 09/21/25 09/21/25 History (honey)) methenamine hippurate 1 gram tablet 1 g PO BID 09/08/25 09/21/25 09/21/25 History lactulose 10 gram/15 mL oral 30 g (45 mL) PO BID #3,785 mL 09/16/25 09/21/25 09/21/25 Rx solution (Constulose) magnesium citrate 300 ml PO DAILY #296 mL 09/16/25 09/21/25 Unknown Rx metronidazole 500 mg tablet 500 mg PO BID 7 days #14 tabs 09/16/25 09/21/25 09/21/25 Rx ciprofloxacin HCl 500 mg tablet 500 mg PO Q12H through 09/23/25 09/21/25 09/21/25 09/21/25 History Allergies Allergy/AdvReac Type Severity Reaction Status Date / Time pollen extracts Allergy Unknown Verified 09/16/25 17:21 PFSH Acute PFSH: Medical History Yeast UTI Hematuria due to acute cystitis Mild cognitive impairment with memory loss Bacteriuria Alzheimer disease 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 mellitus History of Doppler ultrasound 08/2021 venous no DVT BLE 08/2021 arterial patent vessels, left posterior tibial may be less than 60% stenosis, left dorsalis pedis not visualized Gait instability SARS-CoV-2 positive positive test 11/17/2021 symptoms weakness, hypoglycemia, altered mental status and low grade fever Anemia Intermittent self-catheterization of bladder due to urinary retention History of sleep study 02/22 limited sleep, no apnea noted but did have nocturnal hypoxemia, recommended to use nocturnal oxygen History of electromyography 01/23 Interpretation: The study provides electrodiagnostic evidence for an axonal sensorimotor polyneuropathy based on small or absent CMAPs and SNAPs with denervation seen distally on EMG. The study is limited for evaluation of lumbar radiculopathy related to the patient's anticoagulated state. History of echocardiogram 05/2021 EF 65% History of cardiovascular stress test 05/2021 normal EKG response, perfusion study without findings of ischemia Diabetes mellitus, type II Chronic anticoagulation Taken off Xarelto secondary to hematuria BPH loc w urin obs/LUTS Obstructive pyelonephritis 09/2021 required ureteral stent placement Left ureteral calculus Diabetic foot ulcer 08/2021 - treated with I&D, antibiotics and wound care clinic management Lumbar stenosis with neurogenic claudication 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 mellitus Cervicalgia of jsczsxjd-adycecy-cqxic region Lumbar stenosis L2/3, L3/4, L4/L5, with radiculopathy right lower extremity H/O prostate cancer Obstructive sleep apnea Refuses CPAP HTN (hypertension) Atrial fibrillation Surgical History Status post excisional debridement 08/2021 left foot History of laminectomy 03/25 bilateral with partial facetectomies at L2-3, L3-4, L4-[address] Smith Other postprocedural status history of radiofrequency ablation for back pain x 2 Status post laser lithotripsy of ureteral calculus (11/06/21) S/P ureteral stent placement (09/2021) subsequent removal H/O esophagogastroduodenoscopy (10/30/21) 10/2021 pedunculated polyps removed from first portion of duodenum, otherwise normal History of colonoscopy (10/30/21) 11/2021 diverticulosis of sigmoid colon and internal hemorrhoids, sessile polyps removed History of back surgery S/P tonsillectomy S/P appendectomy History of pilonidal cyst Family History Grandmother Heart disease Hypertension Grandfather Hypertension MATERNAL Diabetes Mother No problems noted. Father No problems noted. 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 Family at bedside. HEENT: Normo-cephalic, atraumatic, grossly unremarkable exam Cardio: NSR, normal S1-S2 w/o any murmurs, rubs, or gallops and JVD normal Respiratory: Clear breathing to bilateral upper and lower lobes on auscultation GI: ABD tenderness, abd soft non-distended, normo-active bowel sounds present : Nephrostomy tubes in place. Urine bright yellow, cloudy w/ sediment. Neuro: Moves all extremities, no sensory deficits, Normal speech Behavior: Appropriate and cooperative Extremities: Adequate palpable pulses. No clubbing, cyanosis or edema, Full ROM Quick SOFA Score: Respiratory Rate: 16 Blood Pressure: 126/75 Farrukh Coma Scale: 15 qSOFA Score: 0 If qSOFA score 2 or greater, continue: Blood Pressure Mean: 92 Bilirubin (mg/dl): 0.3 Platelets (x10?/ml): 401 Creatinine (mg/dl): 1.4 Evaluation: Current stage of sepsis: sepsis (Possible) Sepsis stage criteria used: [facility] Sep-1 and Sepsis-3 Blood cultures ordered: Yes Focused Exam: Vital signs: Temp Pulse Resp BP Pulse Ox O2 Del Method 09/21/25 20:00 98.5 F 81 16 126/75 99 Room Air 09/21/25 19:30 98.5 F 130/73 95 Room Air 09/21/25 19:15 100 18 139/69 97 09/21/25 19:00 102 H 22 H 130/86 88 L 09/21/25 16:45 88 19 H 133/79 96 09/21/25 16:30 64 22 H 129/74 96 09/21/25 16:15 75 15 133/75 96 09/21/25 16:00 80 25 H 128/68 98 09/21/25 15:45 91 09/21/25 15:45 98.5 F 76 17 136/97 99 Room Air 09/21/25 15:36 Room Air 09/21/25 15:31 26 H 09/21/25 15:25 100 09/21/25 15:03 102 H 16 137/87 97 Room Air 09/21/25 14:21 80 16 157/84 98 Room Air 09/21/25 13:31 102 H 16 127/75 96 Room Air 09/21/25 11:21 83 18 113/74 99 Room Air 09/21/25 10:01 98.6 F 119 H 22 H 137/92 98 Room Air Respiratory exam: no crakcles, no rales, no rhonchi, no wheezes and no stridor Cardiovascular exam: regular rate and regular rhythm; no gallops and no rubs Peripheral pulse strength: 2+ Slightly Diminished Peripheral pulse location: Pedal Skin exam: turgor normal; pallor not present, not diaphoretic and no mottling Date exam was performed: 09/21/25 Time exam was performed: 16:00 Sepsis Screen No Definite Risk Today, 15:03 Respiratory Rate, (12 - 18) 16 breaths/min Today, 20:00 Blood Pressure 126/75 mmHg Today, 20:00 Farrukh Coma Scale Score 15 Today, 19:45 Quick SOFA Score 0 Today, 15:03 SOFA Score: Farrukh Coma Scale Score 15 Today, 19:45 Blood Pressure Mean 92 mmHg Today, 20:00 Total Bilirubin, (0.15-1.2) 0.3 mg/dL Today, 10:58 Platelet Count, (157-399) 401 10^3/cmm H Today, 10:29 Creatinine, (0.7-1.2) 1.4 mg/dL H Today, 10:58 Data 09/21/25 10:29 09/21/25 10:58 Other Labs: 09/21: Abd/pelvis CT: reviewed and results as follows: Bilateral nephrostomy tubes with moderate residual RIGHT hydronephrosis although improved compared to 09/16/2025. Persistent inflammatory stranding and edema in the RIGHT renal pelvis. LEFT renal collecting system is decompressed. Cholelithiasis. Improved rectal distention. Sacral decubitus ulcer with a small amount of air and fluid similar to prior studies. No other significant changes Micro: Microbiology 09/21/25 10:28 Blood Culture - Preliminary Blood SPECIMEN COLLECTED 09/21/25 10:29 Blood Culture - Preliminary Blood SPECIMEN COLLECTED A&P Assessment and plan 1. Complicated UTI (urinary tract infection): Hx of obstructive pyelonephritis (09/2021) - WBC 13.42, Neut 10.15, Lactic acid 4.2. - 09/21: UA as follows: Urine WBC > 100, urine RBC> 100, urine leukocyte esterase 3+, urine protein 2+, urine bacteria 2+, urine yeast 4+. - 09/21: Urine culture collected, pending. Blood cultures obtained, pending. - 09/21: Abd/pelvis CT:Bilateral nephrostomy tubes with moderate residual RIGHT hydronephrosis although improved compared to 09/16/2025. Persistent inflammatory stranding and edema in the RIGHT renal pelvis. LEFT renal collecting system is decompressed. Cholelithiasis. Improved rectal distention. Sacral decubitus ulcer with a small amount of air and fluid similar to prior studies. No other significant changes - Urine culture collected, pending. Blood cultures obtained, pending. - Strict I's and O's, Fall precautions - Continue IV abx of Diflucan 200mg q24hr, Zosyn 3.375mg IV q8hr - Per ED physician Dr. Mijares patient due for nephrostomy exchange- no urologist available here and currently no urologist available in [facility] until Thursday. There are no nurologist available in [place], [place], [place], and [place], [place] until Thursday. [facility] and start IV abx and to potentially transfer once urology available on Thursday to [facility] [place] versus follow-up as outpatient with soonest available appointment for exchange 2. RAI (acute kidney injury): - Ring Facer 1.4, BUN 13 - Patient on statin, CK ordered, pending. - Hold home medication Lasix 20mg 3. Mental depression: - Consulted psychiatry appreciate recommendations and expertise. - per ICU nurse Mr. Deal said yes to wanting to when he hurts a lot. He states he has no plan and will not actually kill himself because his daughter will be mad. 4. Type 2 diabetes mellitus with diabetic polyneuropathy, with long-term current use of insulin: w/ Neuropathy - A1c 7.5% - Blood glucose monitoring, ACHS - Moderate regimen sliding scale - Hypoglycemic protocol - Cardiac Carb consistent diet - Continue home medication Lantus SC 25u dly 5. Hyperlipemia, mixed: - Lipid panel ordered, pending. - Continue home atorvastatin 80 mg PO dly 6. Benign prostatic hyperplasia, unspecified whether lower urinary tract symptoms present: hx of prostate cancer 7. Paroxysmal atrial fibrillation: - Not on long-term anticoagulation due to hx of hematuria - Continue home medication Digoxin 125mcg PO dly 8. Gastroesophageal reflux disease without esophagitis: - Hold home medication omeprazole 20mg PO - Protonix 40 mg po dly Plan: CODE STATUS: Full code GI prophylaxis: Protonix 40 mg PO dly VTE prophylaxis: Lovenox 30mg SC dly PDMP PDMP Reviewed: Not Reviewed Attestations Medical Necessity Statement*: Admitted under inpatient status. Given complexity of patient's presentation, complicated UTI, co-morbid conditions, and required intensity of treatment, a hospitalization exceeding two midnights is anticipated. and High Time for a total of 79 minutes, includes reviewing past or interval history, examining/interviewing patient, placing orders, counseling patient/family/other support, updating patient/family/other support, discussing plan of care with staff, communicating with other healthcare providers, documenting encounter and coordinating care Diagnoses Complicated UTI (urinary tract infection) N39.0 RAI (acute kidney injury) N17.9 Mental depression F32.A Type 2 diabetes mellitus with diabetic polyneuropathy, with long-term current use of insulin E11.42; Z79.4 Diabetes mellitus complication detail: with polyneuropathy Diabetes mellitus complication status: with neurologic complications 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
[2025-09-21] MEDS: pantoprazole 40 mg SDV IVP (17:12)
[2025-09-21 17:26] LABS: Cholesterol 102 mg/dL (0-200); HDL Cholesterol 32 mg/dL (60-100); Triglycerides 203 mg/dL (0-150)
[2025-09-21 18:49] LABS: Estmated Average Glucose 169; Hemoglobin A1C 7.5 % (4.0-6.0)
--- NOTE | 2025-09-21 20:45 | PC.NURSE ---
Transfer Patient transferred to [facility] via bed. All vital signs stable. All belongings with patient at time of transfer. Receiving nurse aware of arrival.
--- NOTE | 2025-09-21 20:52 | PC.NURSE ---
2041 pt arrived from ICU to [facility]-- pt denies pain, L nephrostomy emtied apx 200 cc yellow clear uo, R cloudy, flushed w 2x 10 cc SNS rudi well. apx 30 in bag now draining better apx 50 cc in bag. IVF infusing well w zosyn at 12.5 cc per hour. educate pt re: [facility] routines, POC- pt verbalized good understanding.
[2025-09-22] VITALS (12 sets, daily range): BP systolic 107–127; BP diastolic 54–75; PULSE 66–80; RESP 14–18; TEMP 36.3–36.8; O2SAT 94–98
[2025-09-22] MEDS: piperacillin-tazobactam 3.375 GM in sodium chloride 0.9% (plus) 50 ML IV ×3 (03:22→21:44)
[2025-09-22] MEDS: pantoprazole 40 mg SDV IVP ×2 (03:28→17:22)
[2025-09-22] MEDS: insulin glargine 100 units/1 mL 25 UNIT SUBCUT (04:15)
[2025-09-22] MEDS: lactulose oral liq 20 gm/30 mL UDC 30 GM PO ×2 (04:28→17:22)
[2025-09-22] MEDS: lactobacillus 1 Tablet 1 TAB PO ×2 (04:30→17:22)
[2025-09-22 05:50] LABS: Hematocrit 27.0 % (37-53); Hemoglobin 8.40 g/dL (11.27-16.99); Mean Corpuscular HGB Conc 31.1 g/dL (30-55); Mean Corpuscular Hemoglobin 26.8 pg (27-33); Mean Corpuscular Volume 86.0 fl (82-101); Nucleated Red Blood Cells % 0 %; Platelet Count 344 10^3/cmm (157-399); Red Blood Count 3.14 10^6/uL (3.85-5.65); White Blood Count 11.84 10^3/uL (3.29-11.43)
[2025-09-22 06:08] LABS: Alanine Aminotransferase < 5 U/L (0-41); Albumin Level 2.7 g/dL (3.5-5.2); Alkaline Phosphatase 74 U/L (40-130); Anion Gap 13.6 (5-19); Aspartate Amino Transferase 11 U/L (0-40); Blood Urea Nitrogen 12 mg/dL (8-23); Calcium 8.3 mg/dL (8.5-10.5); Carbon Dioxide 21 mmol/L (22-29); Chloride 109 mmol/L (98-107); Creatinine Clr Calc Pharmacy 54.4572; Globulin 2.8 g/dL (1.3-4.6); Glucose 114 mg/dL (65-115); Magnesium 1.7 mg/dL (1.7-2.3); Osmolality Calculated 291 mOsm/kg (285-295); Potassium 3.6 mmol/L (3.5-5.1); Sodium 140 mmol/L (136-145); Total Protein 5.5 g/dL (6.6-8.7)
[2025-09-22 09:07] LABS: Lactate (Lactic Acid level) 0.9 mmol/L (0.5-2.2)
--- NOTE | 2025-09-22 11:56 | PC.SOCIAL ---
IMM update pg 2 of IMM updated and reviewed w/ patient. Copy provided and copy dated, initialed and placed in chart.
[2025-09-22] MEDS: fluconazole premix 200 MG/100 ML PREMIX 100 MG IV (12:49)
--- NOTE | 2025-09-22 18:22 | P.PN_ITS ---
Subjective 2 Subjective: the patient was seen in the morning, the patient was complaining mild lower abdominal pain and right-sided lumbar tenderness however it is much better than yesterday. Left nephrostomy tube working and draining clear urine. Adequate output observed Vitals/I&O/Wt Last Vital Signs Temp 98.2 F 09/22/25 16:22 Pulse 80 09/22/25 16:22 Resp 16 09/22/25 16:22 BP 122/66 09/22/25 16:22 Pulse Ox 98 09/22/25 16:22 O2 Del Method Room Air 09/22/25 16:22 09/22/25 09/22/25 09/22/25 06:59 14:59 22:59 Intake Total 1550 / 4346.12 391.25 / 391.25 Output Total 520 / 1220 400 / 400 Balance 1030 / 3126.12 -8.75 / -8.75 Weight last 48 hrs Weight 81.193 kg Weight 80.484 kg Weight 80.031 kg Weight 76.204 kg Physical Exam 2 Narrative: General: Alert and oriented, lying comfortably without any distress, with 2 nephrostomy tube attached and having adequate urine output with clear urine observed HEENT: Normocephalic, atraumatic, grossly unremarkable exam Cardio: normal rate rhythm, normal S1-S2 without any murmurs, rubs, or gallops and JVD normal Respiratory: normal vascular breathing on auscultation without any wheezes, stridor, rhonchi GI: Abdomen soft, mild tenderness elicited on deep palpation on right lumbar region and suprapubic region, left lumbar region also tender but relatively rest in the right., normoactive bowel sounds present all 4 quadrants, Neuro: intact cranial nerves motor and sensory and cerebellar/coordination function without any focal neurological deficit Behavior: Appropriate and cooperative Extremities: Adequate palpable pulses, mild trace edema Data 09/22/25 05:37 09/22/25 05:37 Micro: Microbiology 09/21/25 10:29 Blood Culture - Preliminary Blood NEGATIVE TO DATE 09/21/25 10:28 Blood Culture - Preliminary Blood NEGATIVE TO DATE 09/21/25 10:45 Urine Culture - Preliminary Urine,Clean Catch Yeast species A&P Assessment and plan 1. Complicated UTI (urinary tract infection): Patient having obstructive pyelonephritis status post nephrostomy tube came with abdominal pain and found to have complicated pyelonephritis in the light of possible infected nephrostomy tube as a source of infection? - Continue IV abx of Diflucan 200mg q24hr considering patient having nephrostomy tube and funguria, Zosyn 3.375mg IV q8hr, -Vancomycin as per pharmacist dose and MRSA to follow - Patient was requested for transfer by the admitting physician and Per ED physician Dr. Mijares patient due for nephrostomy exchange- no urologist available here and currently no urologist available in [facility] until Thursday. There are no nurologist available in [place], [place], [place], and [place], [place] until Thursday. On discussion with urologist in [place] to admit here and start IV abx and to potentially transfer once urology available on Thursday to [place] [facility] in [place] versus follow-up as outpatient with soonest available appointment for exchange, -To consider transfer on Thursday since patient is due for nephrostomy tube change and carries high risk of sepsis and septic shock if discharged with this infection and follow-up as outpatient? 2. RAI (acute kidney injury): - Creatinine improving, continue adequate hydration - Avoid nephrotoxic drugs -Intake and output monitoring -Daily renal functions and electrolyte monitoring with correction accordingly 3. Mental depression: - Consulted psychiatry and awaiting recommendations as per the admitting physician note - per ICU nurse Mr. Deal said yes to wanting to when he hurts a lot. He states he has no plan and will not actually kill himself because his daughter will be mad. - Currently patient stable does not exhibit any homicidal or suicidal thoughts. - Continue one-to-one 4. Type 2 diabetes mellitus with diabetic polyneuropathy, with long-term current use of insulin: w/ Neuropathy - A1c 7.5% -Glucose levels are tightly controlled considering patient age, -Patient at insulin 25 units glargine, reduced to 15 units since the patient is inpatient and along with sliding scale to continue - Monitor blood glucose - Hypoglycemia protocol 5. Hyperlipemia, mixed: - Continue home atorvastatin 80 mg PO dly 6. Benign prostatic hyperplasia, unspecified whether lower urinary tract symptoms present: hx of prostate cancer Monitor renal functions and intake and output monitoring 7. Paroxysmal atrial fibrillation: - Not on long-term anticoagulation due to hx of hematuria - Continue home medication Digoxin 125mcg PO dly - Telemetry monitoring 8. Gastroesophageal reflux disease without esophagitis: - Hold home medication omeprazole 20mg PO - Protonix 40 mg po dly Plan: CODE STATUS: Full code GI prophylaxis: Protonix 40 mg PO dly VTE prophylaxis: Lovenox 30mg SC dly PDMP PDMP Reviewed: Not Reviewed Attestations 2 Medical Necessity Statement*: Patient will stay more than 2 midnights for the management of complicated pyelonephritis secondary to infected nephrostomy tube requiring urology services on board and to initiate transfer on Thursday Time Spent in Patient Care: 16 - 35 minutes (>than 50% of time sp ent in counselling and/or direct pt care on unit) . Other Attestations: Patient condition has been discussed at length with the patient/family, I have independently reviewed the chart labs imaging/diagnostics/EKG. the goals of care and code status with the patient/family/NOK/legal financial services representative, and documented accordingly. I have reconciled the medications after confirmation/comorbidities/current clinical condition. The management has been done according to the current clinical condition with respect to patient goals of care and based on recommendations/guidelines. The patient/family has been informed about the current condition and further plan of care. Agreed with the plan of care and understood without any language barrier. Every effort was made to ensure accuracy of belt weaver. Any obvious errors or omissions should be clarified with the author of the document. Coding Level of Care Code 50418 Diagnoses Complicated UTI (urinary tract infection) N39.0 RAI (acute kidney injury) N17.9 Mental depression F32.A Type 2 diabetes mellitus with diabetic polyneuropathy, with long-term current use of insulin E11.42; Z79.4 Diabetes mellitus complication detail: with polyneuropathy Diabetes mellitus complication status: with neurologic complications Diabetes mellitus long-term insulin use: with long-term use Hyperlipemia, mixed E78.2 Benign prostatic hyperplasia, unspecified whether lower urinary tract symptoms present N40.0 Lower urinary tract symptom presence: unspecified whether lower urinary tract symptoms present Paroxysmal atrial fibrillation I48.0 Atrial fibrillation type: paroxysmal Gastroesophageal reflux disease without esophagitis K21.9 Esophagitis presence: without esophagitis
[2025-09-23] VITALS (11 sets, daily range): BP systolic 96–126; BP diastolic 57–84; PULSE 63–94; RESP 16–117; TEMP 36.4–36.8; O2SAT 94–100
[2025-09-23 05:00] LABS: Hematocrit 29.1 % (37-53); Hemoglobin 8.80 g/dL (11.27-16.99); Mean Corpuscular HGB Conc 30.2 g/dL (30-55); Mean Corpuscular Hemoglobin 26.7 pg (27-33); Mean Corpuscular Volume 88.2 fl (82-101); Nucleated Red Blood Cells % 0 %; Platelet Count 359 10^3/cmm (157-399); Red Blood Count 3.30 10^6/uL (3.85-5.65); White Blood Count 11.90 10^3/uL (3.29-11.43)
[2025-09-23 05:21] LABS: Alanine Aminotransferase < 5 U/L (0-41); Albumin Level 3.1 g/dL (3.5-5.2); Alkaline Phosphatase 83 U/L (40-130); Anion Gap 14.6 (5-19); Aspartate Amino Transferase 8 U/L (0-40); Blood Urea Nitrogen 11 mg/dL (8-23); Calcium 8.5 mg/dL (8.5-10.5); Carbon Dioxide 23 mmol/L (22-29); Chloride 106 mmol/L (98-107); Globulin 2.2 g/dL (1.3-4.6); Glucose 102 mg/dL (65-115); Magnesium 1.9 mg/dL (1.7-2.3); Osmolality Calculated 290 mOsm/kg (285-295); Potassium 3.6 mmol/L (3.5-5.1); Sodium 140 mmol/L (136-145); Total Protein 5.3 g/dL (6.6-8.7)
[2025-09-23] MEDS: lactobacillus 1 Tablet 1 TAB PO ×2 (05:25→15:43)
[2025-09-23] MEDS: pantoprazole 40 mg SDV IVP (05:26)
[2025-09-23] MEDS: insulin glargine 100 units/1 mL 15 UNIT SUBCUT (05:29)
--- NOTE | 2025-09-23 07:06 | PHA.VACGOAL ---
Vancomycin Goal - Goal Vancomycin Goal:: 10-15 mg/L Vancomycin Indication:: Other (UTI) - Therapy Current therapy:: Pip/Tazo Day of therpy:: Day []of [] . Actual body weight (kg): 179 lb - Data Labs: WBC 11.90 10^3/uL (3.29-11.43) H 09/23/25 04:39 RBC 3.30 10^6/uL (3.85-5.65) L 09/23/25 04:39 Hgb 8.80 g/dL (11.27-16.99) L 09/23/25 04:39 Hct 29.1 % (37-53) L 09/23/25 04:39 MCV 88.2 fl (82-101) 09/23/25 04:39 MCH 26.7 pg (27-33) L 09/23/25 04:39 MCHC 30.2 g/dL (30-55) 09/23/25 04:39 RDW 15.8 % (12.1-15.1) H 09/23/25 04:39 Sodium 140 mmol/L (136-145) 09/23/25 04:39 Potassium 3.6 mmol/L (3.5-5.1) 09/23/25 04:39 Chloride 106 mmol/L (98-107) 09/23/25 04:39 Carbon Dioxide 23 mmol/L (22-29) 09/23/25 04:39 Anion Gap 14.6 (5-19) 09/23/25 04:39 BUN 11 mg/dL (8-23) 09/23/25 04:39 Creatinine 1.3 mg/dL (0.7-1.2) H 09/23/25 04:39 GFR Calculation Not Reportable 09/23/25 04:39 Last dialysis session:: N/A Treatment plan:: new consult Regimen:: INITIAL LOADING DOSE OF 1000 MG X 1 MAINTENANCE DOSE OF 750 MG Q12H PER DOSING PROTOCOL Follow up:: WILL CONTINUE TO MONITOR AND FOLLOW UP DAILY
[2025-09-23] MEDS: piperacillin-tazobactam 3.375 GM in sodium chloride 0.9% (plus) 50 ML IV ×2 (08:13→15:44)
[2025-09-23 09:43] LABS: MRSA PCR OZH (swab) MRSA Detected (Negative)
[2025-09-23] MEDS: fluconazole premix 200 MG/100 ML PREMIX 100 MG IV (12:16)
--- NOTE | 2025-09-23 15:11 | ECG_ITS ---
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
--- NOTE | 2025-09-23 16:59 | P.PN_ITS ---
Subjective 2 Subjective: Patient seen in the morning, still having mild suprapubic pain and right renal angle pain. Otherwise feeling better, did not report fever or chills any dizziness Vitals/I&O/Wt Last Vital Signs Temp 98.3 F 09/23/25 16:14 Pulse 70 09/23/25 16:14 Resp 16 09/23/25 16:14 BP 111/62 09/23/25 16:14 Pulse Ox 98 09/23/25 16:14 O2 Del Method Room Air 09/23/25 16:14 09/23/25 09/23/25 09/23/25 06:59 14:59 22:59 Intake Total 290 / 1460.00 520 / 520 Output Total 600 / 1520 800 / 800 Balance -310 / -60.00 520 / 520 -800 / -280 Weight last 48 hrs Weight 81.193 kg Weight 80.484 kg Physical Exam 2 Narrative: General: Alert and oriented, lying comfortably without any distress, with 2 nephrostomy tube attached and having adequate urine output with clear urine observed HEENT: Normocephalic, atraumatic, grossly unremarkable exam Cardio: normal rate rhythm, normal S1-S2 without any murmurs, rubs, or gallops and JVD normal Respiratory: normal vascular breathing on auscultation without any wheezes, stridor, rhonchi GI: Abdomen soft, mild tenderness elicited on deep palpation on right lumbar region and suprapubic region, left lumbar region also tender but relatively rest in the right., normoactive bowel sounds present all 4 quadrants, Neuro: intact cranial nerves motor and sensory and cerebellar/coordination function without any focal neurological deficit Behavior: Appropriate and cooperative Extremities: Adequate palpable pulses, mild trace edema Data 09/23/25 04:39 09/23/25 04:39 A&P Assessment and plan 1. Complicated UTI (urinary tract infection): Patient having obstructive pyelonephritis status post nephrostomy tube came with abdominal pain and found to have complicated pyelonephritis in the light of possible infected nephrostomy tube as a source of infection? - Continue IV abx of Diflucan 200mg q24hr considering patient having nephrostomy tube and funguria, Zosyn 3.375mg IV q8hr, -Vancomycin as per pharmacist dose as the patient is MRSA positive -MRSA decontamination protocol - Patient was requested for transfer by the admitting physician and Per ED physician Dr. Mijares patient due for nephrostomy exchange- no urologist available here and currently no urologist available in [facility] until Thursday. There are no nurologist available in [place], [place], [place], and [place], [place] until Thursday. On discussion with urologist in [place] to admit here and start IV abx and to potentially transfer once urology available on Thursday to [facility] in [place] versus follow-up as outpatient with soonest available appointment for exchange, -To consider transfer on Thursday09/25/25 since patient is due for nephrostomy tube change and carries high risk of sepsis and septic shock if discharged with this infection and follow-up as outpatient? 2. RAI (acute kidney injury): - Creatinine improving, continue adequate hydration - Avoid nephrotoxic drugs -Intake and output monitoring -Daily renal functions and electrolyte monitoring with correction accordingly 3. Mental depression: - Consulted psychiatry and awaiting recommendations as per the admitting physician note - per ICU nurse Mr. Deal said yes to wanting to when he hurts a lot. He states he has no plan and will not actually kill himself because his daughter will be mad. - Currently patient stable does not exhibit any homicidal or suicidal thoughts. - In my clinical exam the patient did not exhibit any signs of depression, homicidal or suicidal thoughts. As per the admitting physician note to follow- up with the psych. -Continue to monitor 4. Type 2 diabetes mellitus with diabetic polyneuropathy, with long-term current use of insulin: w/ Neuropathy - A1c 7.5% -Glucose levels are tightly controlled considering patient age, -Patient at insulin 25 units glargine, reduced to 15 units since the patient is inpatient and along with sliding scale to continue - Monitor blood glucose - Hypoglycemia protocol 5. Hyperlipemia, mixed: - Continue home atorvastatin 80 mg PO dly 6. Benign prostatic hyperplasia, unspecified whether lower urinary tract symptoms present: hx of prostate cancer Monitor renal functions and intake and output monitoring 7. Paroxysmal atrial fibrillation: - Not on long-term anticoagulation due to hx of hematuria - Continue home medication Digoxin 125mcg PO dly - Telemetry monitoring 8. Gastroesophageal reflux disease without esophagitis: - Hold home medication omeprazole 20mg PO - Protonix 40 mg po dly Plan: CODE STATUS: Full code GI prophylaxis: Protonix 40 mg PO dly VTE prophylaxis: Lovenox 40mg SC dly PDMP PDMP Reviewed: Not Reviewed Attestations 2 Medical Necessity Statement*: Patient will stay over 2 midnights for the management of his complicated pyelonephritis secondary to infected nephrostomy tube [facility]25 Time Spent in Patient Care: 16 - 35 minutes (>than 50% of time sp ent in counselling and/or direct pt care on unit) . Other Attestations: Patient condition has been discussed at length with the patient/family, I have independently reviewed the chart labs imaging/diagnostics/EKG. the goals of care and code status with the patient/family/NOK/legal solar sales representative and assessor, and documented accordingly. I have reconciled the medications after confirmation/comorbidities/current clinical condition. The management has been done according to the current clinical condition with respect to patient goals of care and based on recommendations/guidelines. The patient/family has been informed about the current condition and further plan of care. Agreed with the plan of care and understood without any language barrier. Every effort was made to ensure accuracy of captain/airline pilot. Any obvious errors or omissions should be clarified with the author of the document. Coding Level of Care Code 35797 Diagnoses Complicated UTI (urinary tract infection) N39.0 RAI (acute kidney injury) N17.9 Mental depression F32.A Type 2 diabetes mellitus with diabetic polyneuropathy, with long-term current use of insulin E11.42; Z79.4 Diabetes mellitus complication detail: with polyneuropathy Diabetes mellitus complication status: with neurologic complications Diabetes mellitus oil heaterman insulin use: with [facility] use Hyperlipemia, mixed E78.2 Benign prostatic hyperplasia, unspecified whether lower urinary tract symptoms present N40.0 Lower urinary tract symptom presence: unspecified whether lower urinary tract symptoms present Paroxysmal atrial fibrillation I48.0 Atrial fibrillation type: paroxysmal Gastroesophageal reflux disease without esophagitis K21.9 Esophagitis presence: without esophagitis
[2025-09-23] MEDS: mupirocin oint 22 gm 1 APPLIC TOPICAL (17:43)
[2025-09-24] VITALS (12 sets, daily range): BP systolic 112–136; BP diastolic 58–81; PULSE 64–93; RESP 16–18; TEMP 36.6–37.1; O2SAT 94–100
[2025-09-24] MEDS: piperacillin-tazobactam 3.375 GM in sodium chloride 0.9% (plus) 50 ML IV ×3 (00:53→16:42)
[2025-09-24 04:42] LABS: Hematocrit 27.9 % (37-53); Hemoglobin 8.60 g/dL (11.27-16.99); Mean Corpuscular HGB Conc 30.8 g/dL (30-55); Mean Corpuscular Hemoglobin 26.8 pg (27-33); Mean Corpuscular Volume 86.9 fl (82-101); Nucleated Red Blood Cells % 0 %; Platelet Count 352 10^3/cmm (157-399); Red Blood Count 3.21 10^6/uL (3.85-5.65); White Blood Count 11.89 10^3/uL (3.29-11.43)
[2025-09-24] MEDS: lactobacillus 1 Tablet 1 TAB PO ×2 (05:08→16:36)
[2025-09-24 05:13] LABS: Alanine Aminotransferase < 5 U/L (0-41); Albumin Level 3.0 g/dL (3.5-5.2); Alkaline Phosphatase 76 U/L (40-130); Anion Gap 12.5 (5-19); Aspartate Amino Transferase 9 U/L (0-40); Blood Urea Nitrogen 10 mg/dL (8-23); Calcium 8.5 mg/dL (8.5-10.5); Carbon Dioxide 24 mmol/L (22-29); Chloride 107 mmol/L (98-107); Globulin 2.6 g/dL (1.3-4.6); Glucose 135 mg/dL (65-115); Magnesium 1.8 mg/dL (1.7-2.3); Osmolality Calculated 291 mOsm/kg (285-295); Potassium 3.5 mmol/L (3.5-5.1); Sodium 140 mmol/L (136-145); Total Protein 5.6 g/dL (6.6-8.7)
[2025-09-24] MEDS: pantoprazole 40 mg SDV IVP (05:27)
[2025-09-24] MEDS: insulin glargine 100 units/1 mL 15 UNIT SUBCUT (05:27)
[2025-09-24] MEDS: mupirocin oint 22 gm 1 APPLIC TOPICAL ×2 (05:28→16:37)
[2025-09-24] MEDS: HYDROmorphone 0.5 MG/0.5 ML INJ 0.4 MG IVP (12:24)
[2025-09-24] MEDS: fluconazole premix 200 MG/100 ML PREMIX 100 MG IV (12:25)
--- NOTE | 2025-09-24 17:36 | PM.PN ---
Subjective Subjective: Patient seen in the morning, having suprapubic bladder spasm that also involves his pelvic region. Intermittent and also associated with cramping sensation along the sides of his lumbar region which is likely sales representative leather goods of his nephrostomy tube infection with colicky pain involving ureters and the bladder Overall patient labs improving, and need urology on board for nephrostomy tube removal for high likelihood of nephrostomy tube infection and further management. Vitals/I&O/Wt Last Vital Signs Temp 98.6 F 09/24/25 15:22 Pulse 69 09/24/25 15:22 Resp 17 09/24/25 15:22 BP 115/66 09/24/25 15:22 Pulse Ox 100 09/24/25 15:22 O2 Del Method Room Air 09/24/25 15:22 09/24/25 09/24/25 09/24/25 06:59 14:59 22:59 Intake Total 50 / 870 880 / 880 Output Total 300 / 1600 625 / 625 Balance -250 / -730 255 / 255 Weight last 48 hrs Weight 83.733 kg Physical Exam Narrative: General: Alert and oriented, with discomfort due to bladder spasms, without any respiratory distress and able to speak in full sentences, with 2 nephrostomy tube attached and having adequate urine output with clear urine observed HEENT: Normocephalic, atraumatic, grossly unremarkable exam Cardio: normal rate rhythm, normal S1-S2 without any murmurs, rubs, or gallops and JVD normal Respiratory: normal vascular breathing on auscultation without any wheezes, stridor, rhonchi GI: Abdomen soft, suprapubic and right renal angle tenderness present on deep palpation, left renal angle tenderness but relatively less than the right, normoactive bowel sounds present all 4 quadrants, Neuro: intact cranial nerves motor and sensory and cerebellar/coordination function without any focal neurological deficit Behavior: Appropriate and cooperative Extremities: Adequate palpable pulses, mild trace edema Data 09/24/25 04:09 09/24/25 04:09 Micro: Microbiology 09/21/25 10:45 Urine Culture - Final Urine,Clean Catch Carolyn tropicalis sucrose neg A&P Assessment and plan 1. Complicated UTI (urinary tract infection): Patient having obstructive pyelonephritis status post nephrostomy tube came with abdominal pain and found to have complicated pyelonephritis in the light of possible infected nephrostomy tube as a source of infection? - Continue IV abx of Diflucan 200mg q24hr considering patient having nephrostomy tube and funguria, Zosyn 3.375mg IV q8hr, -Vancomycin as per pharmacist dose as the patient is MRSA positive -MRSA decontamination protocol - Bladder and ureter spasm leading to colicky like pain, patient given hydromorphone and Flexeril, to continue analgesia as needed based on pain rating scale - Intake and output monitoring - Daily renal functions and electrolytes along with other basic labs - Monitor hemodynamics Of note: - Patient was requested for transfer by the admitting physician and Per ED physician Dr. Mijares patient due for nephrostomy exchange- no urologist available here and currently no urologist available in [facility] until Thursday. There are no nurologist available in [place], [place], [place], and [place], [place] until Thursday. On discussion with urologist in [place] to admit here and start IV abx and to potentially transfer once urology available on Thursday to [facility] in [place] versus follow-up as outpatient with soonest available appointment for exchange, -To consider transfer on Thursday09/25/25 since patient is due for nephrostomy tube change and carries high risk of sepsis and septic shock if discharged with this infection and follow-up as outpatient? 2. RAI (acute kidney injury): - Back to baseline, continue adequate hydration - Avoid nephrotoxic drugs -Intake and output monitoring -Daily renal functions and electrolyte monitoring with correction accordingly 3. Mental depression: - Consulted psychiatry and awaiting recommendations as per the admitting physician note - per ICU nurse Mr. Deal said yes to wanting to when he hurts a lot. He states he has no plan and will not actually kill himself because his daughter will be mad. This statement was made out of frustration since the patient was having abdominal pain secondary to infected nephrostomy tubes - Currently patient stable does not exhibit any homicidal or suicidal thoughts. - In my clinical exam the patient did not exhibit any signs of depression, homicidal or suicidal thoughts. As per the admitting physician note to follow-up with the psych. - Continue to monitor. 4. Type 2 diabetes mellitus with diabetic polyneuropathy, with long-term current use of insulin: w/ Neuropathy - A1c 7.5% -Glucose levels are tightly controlled considering patient age, -Patient at insulin 25 units glargine, reduced to 15 units since the patient is inpatient and along with sliding scale to continue - Monitor blood glucose - Hypoglycemia protocol 5. Hyperlipemia, mixed: - Continue home atorvastatin 80 mg PO dly 6. Benign prostatic hyperplasia, unspecified whether lower urinary tract symptoms present: hx of prostate cancer Monitor renal functions and intake and output monitoring 7. Paroxysmal atrial fibrillation: - Not on long-term anticoagulation due to hx of hematuria - Continue home medication Digoxin 125mcg PO dly - Telemetry monitoring 8. Gastroesophageal reflux disease without esophagitis: - Hold home medication omeprazole 20mg PO - Protonix 40 mg po dly Plan: CODE STATUS: Full code GI prophylaxis: Protonix 40 mg PO dly VTE prophylaxis: Lovenox 40mg SC dly PDMP PDMP Reviewed: Not Reviewed Attestations Medical Necessity Statement*: Patient will stay over midnight for the management of his complicated pyelonephritis secondary to infected nephrostomy tube waiting [facility]25 Time Spent in Patient Care: 16 - 35 minutes (>than 50% of time spent in counselling and/or direct pt care on unit). Other Attestations: Patient condition has been discussed at length with the patient/family, I have independently reviewed the chart labs imaging/diagnostics/EKG. the goals of care and code status with the patient/family/NOK/legal sales representative leather goods, and documented accordingly. I have reconciled the medications after confirmation/comorbidities/current clinical condition. The management has been done according to the current clinical condition with respect to patient goals of care and based on recommendations/guidelines. The patient/family has been informed about the current condition and further plan of care. Agreed with the plan of care and understood without any language barrier. Every effort was made to ensure accuracy of vending machine coin collector. Any obvious errors or omissions should be clarified with the author of the document. Coding Level of Care Code 64608 Diagnoses Complicated UTI (urinary tract infection) N39.0 RAI (acute kidney injury) N17.9 Mental depression F32.A Type 2 diabetes mellitus with diabetic polyneuropathy, with long-term current use of insulin E11.42; Z79.4 Diabetes mellitus supervisor intermediates insulin use: with [facility] use Diabetes mellitus complication status: with neurologic complications Diabetes mellitus complication detail: with polyneuropathy Hyperlipemia, mixed E78.2 Benign prostatic hyperplasia, unspecified whether lower urinary tract symptoms present N40.0 Lower urinary tract symptom presence: unspecified whether lower urinary tract symptoms present Paroxysmal atrial fibrillation I48.0 Atrial fibrillation type: paroxysmal Gastroesophageal reflux disease without esophagitis K21.9 Esophagitis presence: without esophagitis
--- NOTE | 2025-09-24 18:52 | PC.NURSE ---
This nurse did not hang 1914 Vanc due to awaiting results of vanc trough and zosyn running. Pt only has 1 IV and does not want a second. manufacturing shift supervisor nurses Sasha, RN and Khoa RN notified.
[2025-09-25] VITALS (10 sets, daily range): BP systolic 104–129; BP diastolic 63–73; PULSE 64–91; RESP 15–18; TEMP 36.4–37.1; O2SAT 95–100
[2025-09-25] MEDS: piperacillin-tazobactam 3.375 GM in sodium chloride 0.9% (plus) 50 ML IV ×3 (01:10→17:55)
[2025-09-25] MEDS: HYDROmorphone 0.5 MG/0.5 ML INJ IVP (03:03)
[2025-09-25] MEDS: pantoprazole 40 mg SDV IVP (05:12)
[2025-09-25] MEDS: lactobacillus 1 Tablet 1 TAB PO ×2 (05:13→17:57)
[2025-09-25] MEDS: mupirocin oint 22 gm 1 APPLIC TOPICAL ×2 (05:14→17:57)
[2025-09-25] MEDS: insulin glargine 100 units/1 mL 15 UNIT SUBCUT (05:54)
[2025-09-25 06:13] LABS: Hematocrit 29.0 % (37-53); Hemoglobin 8.80 g/dL (11.27-16.99); Mean Corpuscular HGB Conc 30.3 g/dL (30-55); Mean Corpuscular Hemoglobin 26.3 pg (27-33); Mean Corpuscular Volume 86.8 fl (82-101); Nucleated Red Blood Cells % 0 %; Platelet Count 400 10^3/cmm (157-399); Red Blood Count 3.34 10^6/uL (3.85-5.65); White Blood Count 12.07 10^3/uL (3.29-11.43)
[2025-09-25 06:37] LABS: Alanine Aminotransferase < 5 U/L (0-41); Albumin Level 3.1 g/dL (3.5-5.2); Alkaline Phosphatase 81 U/L (40-130); Anion Gap 13.5 (5-19); Aspartate Amino Transferase 12 U/L (0-40); Blood Urea Nitrogen 9 mg/dL (8-23); Calcium 8.8 mg/dL (8.5-10.5); Carbon Dioxide 24 mmol/L (22-29); Chloride 107 mmol/L (98-107); Creatinine Clr Calc Pharmacy 59.6276; Globulin 2.9 g/dL (1.3-4.6); Glucose 137 mg/dL (65-115); Osmolality Calculated 293 mOsm/kg (285-295); Potassium 3.5 mmol/L (3.5-5.1); Sodium 141 mmol/L (136-145); Total Protein 6.0 g/dL (6.6-8.7)
[2025-09-25] MEDS: fluconazole premix 200 MG/100 ML PREMIX 100 MG IV (13:22)
--- NOTE | 2025-09-25 17:49 | PC.NURSE ---
Report called to Jeana Jung RN at [facility]
--- NOTE | 2025-09-25 18:28 | PC.NURSE ---
This nurse has attempted to call [facility] for transportation and it has went straight to voicemail twice.
--- NOTE | 2025-09-25 20:37 | PM.TDS ---
Transfer Summary Providers Date of Admission: 09/21/25 14:42 Date of Discharge/Transfer: 09/25/25 Attending Provider at Admission: Bonifacio Brooks Attending Provider at Transfer: Emy Hermosillo MD Primary Care Provider: Trisha Urena MD Transfer Plans: Anticipated date of transfer: 09/25/25. Diagnoses at Discharge Discharge Diagnosis 1. Complicated UTI (urinary tract infection): 2. RAI (acute kidney injury): 3. Mental depression: 4. Type 2 diabetes mellitus with diabetic polyneuropathy, with long-term current use of insulin: 5. Hyperlipemia, mixed: 6. Benign prostatic hyperplasia, unspecified whether lower urinary tract symptoms present: 7. Paroxysmal atrial fibrillation: 8. Gastroesophageal reflux disease without esophagitis: Reason for Visit Reason for Visit ABD PAIN Brief History: As per the admitting physician note and the retrospective notes review Raphael Deal is a 75 year old male w/ pmhx of Alzheimer's disease, DM2, neuropathy, BPH, hx of prostate cancer, ALONSO(refuses CPAP), HTN, A-fib(not on long-term anticoagulation), obstructive pyelonephritis (09/2021) presents to the ED today w/ c/o significant ABD pain x 1wk and fever. patient states pain started about intermittently and with time became constant. He describes the pain as sharp and all over. He attempted to alleviate the pain by laying on his side, and fentanyl patches along with home pain medication. Pain persisted which brought him to the ED today. Patient denies headache, chest pain, shortness of breath, N/V/D, recent changes in medications. Patient to be admitted to hospitalist services for further medical management and care of complicated UTI. While in the ED a CBC, CMP, lactic acid, UA was obtained, reviewed and results as follows: WBC 13.42, Neut 10.15, RBC 3.69, Hgb 10.10, HCT 31.7, RDW 15.9, Plt 401. Na 138, K 3.2, Osmo 295, glucose 267. Lactic acid 4.2. UA as follows: Urine WBC > 100, urine RBC> 100, urine leukocyte esterase 3+, urine protein 2+, urine bacteria 2+, urine yeast 4+. Urine culture collected, pending. Blood cultures obtained, pending. While in ED patient received the following medications: Zosyn 3.375 g IV, 2,286mL NS IV bolus, Zofran 4 mg IVP, morphine 4 mg IVP. Hospital Course Hospital Course Patient admitted as a case of complicated pyelonephritis secondary to high likelihood of infected nephrostomy tubes. CT scan of the abdomen and pelvis shows signs of right sided hydronephrosis with features of chronic inflammation.. Urine culture shows yeast and was started on antifungal therapy based on the patient clinical condition of having nephrostomy tubes. Blood culture prelim negative however he was kept on vancomycin and Zosyn. Patient initially had mild increase in creatinine that improved after hydration. Patient bilateral nephrostomy tubes are working. However patient is having ongoing bilateral renal and also suprapubic pain. His WBC counts are not trending down as well. Clinically the patient is more or less the same and is not improving overall from the last 3 to 4 days. Patient is also due for change of his nephrostomy tube. Initially from ER, as per the admitting physician note the ER physician tried for transfer under urology service 3 to 4 days ago however due to unavailability of the urology services the patient was kept until today. And the plan for transfer to [facility] was for today. However I called [facility] in [facility] but could not get hold of urology services for patient transfer. There was no bed available in [facility]. And [facility] was on divert for urology services. Therefore it was decided to call [facility] and discussion with the urologist was made. And his case was discussed with hospitalist. The urologist preferred the patient to be seen as outpatient for further establishment of care however based on the patient current clinical situation and no improvement in his laboratory parameters, I referred the patient to be taken care in a higher level facility where urology is available and in case further deterioration, the patient can be managed without any delay. After discussing patient situation with the hospitalist, patient accepted for transfer. The patient also informed about his clinical condition and preferred to be seen by the urologist since from the last 6 months he could not get hold of urology and unable to follow-up adequately for his condition. Medications were reconciled after confirmation and according to patient comorbidities and appropriate follow-ups and referrals were provided at the time of discharge. Patient condition has been discussed at length with the patient/family, I have independently reviewed the chart labs imaging/diagnostics/EKG. the goals of care and code status with the patient/family/NOK/legal accounts receivable representative, and documented accordingly. The management has been done according to the current clinical condition with respect to patient goals of care and based on recommendations/guidelines. The patient/family has been informed about the current condition and further plan of care. Agreed with the plan of care and understood without any language barrier. Every effort was made to ensure accuracy of track laborer. Any obvious errors or omissions should be clarified with the author of the document. Physical Exam Narrative: General: Alert and oriented, with discomfort due to bladder spasms, without any respiratory distress and able to speak in full sentences, with 2 nephrostomy tube attached and having adequate urine output with clear urine observed HEENT: Normocephalic, atraumatic, grossly unremarkable exam Cardio: normal rate rhythm, normal S1-S2 without any murmurs, rubs, or gallops and JVD normal Respiratory: normal vascular breathing on auscultation without any wheezes, stridor, rhonchi GI: Abdomen soft, suprapubic and right renal angle tenderness present on deep palpation, left renal angle tenderness but relatively less than the right, normoactive bowel sounds present all 4 quadrants, Neuro: intact cranial nerves motor and sensory and cerebellar/coordination function without any focal neurological deficit Behavior: Appropriate and cooperative Extremities: Adequate palpable pulses, mild trace edema TS Data Studies Completed and Pending Pending at discharge Category Date Time Status Blood Culture Stat Lab 09/21/25 10:28 Results Completed Studies During Hospitalization Category Date Time Status [place] kidney stone [id number] Stat Cat Scan 09/21/25 10:08 Completed Laboratory Last Values WBC 12.07 10^3/uL (3.29-11.43) H 09/25/25 05:34 RBC 3.34 10^6/uL (3.85-5.65) L 09/25/25 05:34 Hgb 8.80 g/dL (11.27-16.99) L 09/25/25 05:34 Hct 29.0 % (37-53) L 09/25/25 05:34 MCV 86.8 fl (82-101) 09/25/25 05:34 MCH 26.3 pg (27-33) L 09/25/25 05:34 MCHC 30.3 g/dL (30-55) 09/25/25 05:34 RDW 15.9 % (12.1-15.1) H 09/25/25 05:34 Plt Count 400 10^3/cmm (157-399) H 09/25/25 05:34 MPV 9.8 fL (7.4-10.4) 09/25/25 05:34 Neut % (Auto) 63.2 % 09/25/25 05:34 Lymph % (Auto) 24.8 % 09/25/25 05:34 Vilas % (Auto) 5.8 % 09/25/25 05:34 Eos % (Auto) 4.9 % 09/25/25 05:34 Baso % (Auto) 0.8 % 09/25/25 05:34 Neut # (Auto) 7.63 10^3/uL (1.8-7.7) 09/25/25 05:34 Lymph # (Auto) 3.0 10^3/uL (0.8-4.8) 09/25/25 05:34 Vilas # (Auto) 0.7 10^3/uL (0.2-0.9) 09/25/25 05:34 Eos # (Auto) 0.6 10^3/uL (0.0-0.8) 09/25/25 05:34 Baso # (Auto) 0.1 10^3/uL (0.0-0.1) 09/25/25 05:34 Nucleated RBC % (auto) 0 % 09/25/25 05:34 Nucleated RBCs # 0.0 /100WBC 09/25/25 05:34 Sodium 141 mmol/L (136-145) 09/25/25 05:34 Potassium 3.5 mmol/L (3.5-5.1) 09/25/25 05:34 Chloride 107 mmol/L (98-107) 09/25/25 05:34 Carbon Dioxide 24 mmol/L (22-29) 09/25/25 05:34 Anion Gap 13.5 (5-19) 09/25/25 05:34 BUN 9 mg/dL (8-23) 09/25/25 05:34 Creatinine 1.1 mg/dL (0.7-1.2) 09/25/25 05:34 GFR Calculation Not Reportable 09/25/25 05:34 Glucose 137 mg/dL (65-115) H 09/25/25 05:34 POC Glucose 170 mg/dL (70-110) H 09/25/25 16:52 Estimat Average Glucose 169 09/21/25 10:29 Hemoglobin A1c 7.5 % (4.0-6.0) H 09/21/25 10:29 Calculated Osmolality 293 mOsm/kg (285-295) 09/25/25 05:34 Lactic Acid 4.2 mmol/L (0.5-2.2) H* 09/21/25 10:58 Lactic Acid (Sepsis) 3.8 mmol/L (0.5-2.2) H 09/21/25 13:05 Lactate 0.9 mmol/L (0.5-2.2) 09/22/25 08:27 Calcium 8.8 mg/dL (8.5-10.5) 09/25/25 05:34 Magnesium 1.8 mg/dL (1.7-2.3) 09/24/25 04:09 Total Bilirubin 0.3 mg/dL (0.15-1.2) 09/25/25 05:34 AST 12 U/L (0-40) 09/25/25 05:34 ALT < 5 U/L (0-41) 09/25/25 05:34 Alkaline Phosphatase 81 U/L (40-130) 09/25/25 05:34 Creatine Kinase 46 U/L (39-308) 09/21/25 16:32 Total Protein 6.0 g/dL (6.6-8.7) L 09/25/25 05:34 Albumin 3.1 g/dL (3.5-5.2) L 09/25/25 05:34 Globulin 2.9 g/dL (1.3-4.6) 09/25/25 05:34 Triglycerides 203 mg/dL (0-150) H 09/21/25 10:58 Cholesterol 102 mg/dL (0-200) 09/21/25 10:58 LDL Cholesterol, Calc 29 mg/dL (50-129) L 09/21/25 10:58 HDL Cholesterol 32 mg/dL (60-100) L 09/21/25 10:58 LDL/HDL Ratio 0.91 RATIO (0.00-3.22) 09/21/25 10:58 Cholesterol/HDL Ratio 3.19 mg/dL (1.0-5.00) 09/21/25 10:58 Urine Color Yellow (Yellow) 09/21/25 10:45 Urine Appearance Turbid (CLEAR) A 09/21/25 10:45 Urine pH 6.0 (5-7) 09/21/25 10:45 Ur Specific [place] 1.015 (1.005-1.030) 09/21/25 10:45 Urine Protein 2+ (Negative) A 09/21/25 10:45 Urine Glucose (UA) Negative (Normal) 09/21/25 10:45 Urine Ketones Negative (Negative) 09/21/25 10:45 Urine Blood 3+ (Negative) A 09/21/25 10:45 Urine Nitrate Negative (Negative) 09/21/25 10:45 Urine Bilirubin Negative (Negative) 09/21/25 10:45 Urine Urobilinogen 0.2 mg/dL (Negative) 09/21/25 10:45 Ur Leukocyte Esterase 3+ (Negative) A 09/21/25 10:45 Urine RBC >100 /hpf (0-2) H 09/21/25 10:45 Urine WBC >100 /hpf (0-5) H 09/21/25 10:45 Ur Squamous Epith Cells 0-5 /hpf (0-5) 09/21/25 10:45 Amorphous Sediment Not Reportable 09/21/25 10:45 Urine Bacteria 2+ /hpf (NONE) H 09/21/25 10:45 Hyaline Casts 10.96 /lpf 09/21/25 10:45 Urine Yeast 4+ /hpf H 09/21/25 10:45 Nasal MRSA (PCR) Mrsa detected (Negative) A 09/23/25 08:27 Vancomycin Trough 15.6 ug/mL (10-15) H 09/24/25 18:07 Digoxin 0.9 ng/mL (0.6-1.2) 09/21/25 10:29 Radiology Impressions Abdomen/Pelvis CT 09/21/25 10:08 IMPRESSION: 1. Bilateral nephrostomy tubes with moderate residual RIGHT hydronephrosis although improved compared to 09/16/2025. Persistent inflammatory stranding and edema in the RIGHT renal pelvis. 2. LEFT renal collecting system is decompressed. 3. Cholelithiasis. 4. Improved rectal distention 5. Sacral decubitus ulcer with a small amount of air and fluid similar to prior studies 6. No other significant changes Recent Clincial Data Last Vital Signs Temp 97.6 F 09/25/25 15:45 Pulse 64 09/25/25 15:45 Resp 17 09/25/25 15:45 BP 116/67 09/25/25 15:45 Pulse Ox 96 09/25/25 15:45 O2 Del Method Room Air 09/25/25 15:45 O2 Flow Rate 0 09/24/25 20:00 Vital Signs Temp Pulse Resp BP Pulse Ox O2 Del Method 09/25/25 15:45 97.6 F 64 17 116/67 96 Room Air 09/25/25 11:25 75 16 95 Room Air 09/25/25 11:00 98.8 F 91 16 104/63 96 Room Air Intake & Output/Weight 09/23/25 09/24/25 09/25/25 09/26/25 06:59 06:59 06:59 06:59 Intake Total 1460.00 / 1460.00 870 / 870 1230 / 1230 980.000 / 980.000 Output Total 1520 / 1520 1600 / 1600 1300 / 1300 375 / 375 Balance -60 / -60.00 -730 / -730 -70 / -70 605.000 / 605.000 Weight 83.733 kg 81.873 kg Vitals Last Vital Signs Temp 97.6 F 09/25/25 15:45 Pulse 64 09/25/25 15:45 Resp 17 09/25/25 15:45 BP 116/67 09/25/25 15:45 Pulse Ox 96 09/25/25 15:45 O2 Del Method Room Air 09/25/25 15:45 O2 Flow Rate 0 09/24/25 20:00 TS Medications Medications Acetaminophen (Acetaminophen 325 Mg Tablet) 650 mg PO Q6H PRN PRN Reason: Mild/Mod Pain Or Temp >/= 101 Last Admin: 09/25/25 06:02 Dose: 650 mg Albuterol Sulfate (Albuterol 2.5 Mg/3 Ml Neb) 2.5 mg INHALATION Q4H PRN PRN Reason: Dyspnea Albuterol Sulfate (Albuterol 2.5 Mg/3 Ml Neb) 2.5 mg INHALATION QID.RESPIRATORY [facility] Last Admin: 09/25/25 19:19 Dose: Not Given Atorvastatin Calcium (Atorvastatin 40 Mg Tablet) 80 mg PO DAILY [facility] Last Admin: 09/25/25 05:13 Dose: 80 mg Bisacodyl (Bisacodyl 5 Mg Tablet) 10 mg PO DAILY PRN; Protocol PRN Reason: Constipation (see protocol) Last Admin: 09/24/25 09:41 Dose: 10 mg Budesonide (Budesonide 0.5 Mg/2 Ml Neb) 0.5 mg INHALATION BID.RESPIRATORY ROSALBA Last Admin: 09/25/25 19:19 Dose: Not Given Chlorhexidine Gluconate (Chlorhexidine Gluconate 4% Btl 118 Ml) 1 applic TOPICAL DAILY [facility] Stop: 09/29/25 04:59 Last Admin: 09/25/25 05:27 Dose: Not Given Cyclobenzaprine HCl (Cyclobenzaprine 10 Mg Tablet) 5 mg PO TID PRN PRN Reason: MUSCLE SPASMS Last Admin: 09/25/25 07:53 Dose: 5 mg Digoxin (Digoxin 125 Mcg Tablet) 125 mcg PO DAILY [facility] Last Admin: 09/25/25 05:12 Dose: 125 mcg Docusate Sodium (Docusate Sodium 100 Mg Capsule) 100 mg PO BID [facility] Last Admin: 09/25/25 17:57 Dose: 100 mg Enoxaparin Sodium (Enoxaparin 40 Mg/0.4 Ml Syringe) 40 mg SUBCUT Q24H [facility] Last Admin: 09/24/25 16:36 Dose: 40 mg Fentanyl (Fentanyl 100 Mcg Patch) 1 patch TRANSDERMA Q72H [facility] Last Admin: 09/25/25 13:25 Dose: 1 patch Glucagon (Glucagon 1 Mg/Ml Kit 1 Ml) 1 mg IM ONCE PRN; Protocol PRN Reason: Adult Acute Hypoglycemia Nursing Prot. Hydromorphone HCl (Hydromorphone 0.5 Mg/0.5 Ml Inj) 0.5 mg IVP Q4H PRN PRN Reason: pain scale rating more than 7 Last Admin: 09/25/25 03:03 Dose: 0.5 mg Fluconazole (Diflucan Premix) 200 mg in 100 mls @ 100 mls/hr IV Q24H [facility] Last Infusion: 09/25/25 14:29 Dose: Infused Dextrose (D5w) 500 mls @ 0 mls/hr IV ONCE PRN; Protocol PRN Reason: Adult Acute Hypoglycemia Prot Dextrose (D10w) 125 mls @ 750 mls/hr IV PRN PRN; Protocol PRN Reason: Adult Acute Hypoglycemia Nursing Protocol Dextrose (D10w) 250 mls @ 1,000 mls/hr IV PRN PRN; Protocol PRN Reason: Adult Acute Hypoglycemia Nursing Protocol Vancomycin HCl 750 mg/ Sodium (Chloride) 250 mls @ 250 mls/hr IV Q12H [facility] Last Infusion: 09/25/25 08:58 Dose: Infused Piperacillin Sod/Tazobactam (Sod 3.375 gm/ Sodium Chloride) 50 mls @ 12.5 mls/hr IV Q8H [facility]; Protocol Last Admin: 09/25/25 17:55 Dose: 12.5 mls/hr Insulin Glargine (Insulin Glargine 100 Units/1 Ml) 15 unit SUBCUT DAILY [facility] Last Admin: 09/25/25 05:54 Dose: 15 unit Insulin Human Lispro (Insulin Lispro 100 Unit/1 Ml) 0 unit SUBCUT WM&BEDTIME [facility]; Protocol Last Admin: 09/25/25 18:13 Dose: 4 unit Lactobacillus Acidophilus (Lactobacillus 1 Tablet) 1 tab PO BID [facility] Last Admin: 09/25/25 17:57 Dose: 1 tab Lactulose (Lactulose Oral Liq 20 Gm/30 Ml Udc) 30 gm PO BID PRN PRN Reason: Constipation Mupirocin (Mupirocin Oint 22 Gm) 1 applic TOPICAL BID [facility] Stop: 09/28/25 16:59 Last Admin: 09/25/25 17:57 Dose: 1 applic Nystatin (Nystatin Powder 15 Gm Btl) 1 applic TOPICAL TID [facility] Last Admin: 09/25/25 11:45 Dose: 1 applic Ondansetron HCl (Ondansetron 2 Mg/Ml Sdv 2 Ml) 4 mg IVP Q8H PRN PRN Reason: vomiting, or N/V if npo Pantoprazole Sodium (Pantoprazole 40 Mg Sdv) 40 mg IVP DAILY [facility] Last Admin: 09/25/25 05:12 Dose: 40 mg Polyethylene Glycol (Polyethylene Glycol 3350 Pkt 17 Gm) 17 gm PO DAILY PRN PRN Reason: Constipation Simethicone (Simethicone 80 Mg Chew) 60 mg PO Q4H PRN PRN Reason: gas pain Last Admin: 09/25/25 05:12 Dose: 60 mg Tramadol HCl (Tramadol 50 Mg Tablet) 50 mg PO Q8H PRN PRN Reason: MODERATE PAIN Last Admin: 09/25/25 09:27 Dose: 50 mg Discontinued Medications Atorvastatin Calcium (Atorvastatin 40 Mg Tablet) 80 mg PO DAILY [facility] Last Admin: 09/23/25 05:25 Dose: 80 mg Enoxaparin Sodium (Enoxaparin 30 Mg/0.3 Ml Syringe) 30 mg SUBCUT Q24H [facility] Last Admin: 09/22/25 17:22 Dose: 30 mg Furosemide (Furosemide 20 Mg Tablet) 20 mg PO DAILY [facility] Hydromorphone HCl (Hydromorphone 0.5 Mg/0.5 Ml Inj) 0.4 mg IVP ONCE ONE Stop: 09/24/25 10:35 Last Admin: 09/24/25 12:24 Dose: 0.4 mg Sodium Chloride (Sodium Chloride 0.9%) 2,286.12 mls @ 2,286.12 mls/hr 30 ml/kg infuse over 1 hr (2286.12 ml) IV .Q1H ONE Stop: 09/21/25 13:16 Last Infusion: 09/21/25 14:23 Dose: Infused Piperacillin Sod/Tazobactam (Sod 3.375 gm/ Sodium Chloride) 50 mls @ 100 mls/hr IV ONCE ONE; Protocol Stop: 09/21/25 12:46 Last Infusion: 09/21/25 13:29 Dose: Infused Sodium Chloride (Sodium Chloride 0.9%) 1,000 mls @ 125 mls/hr IV .Q8H [facility] Last Infusion: 09/22/25 06:53 Dose: Infused Piperacillin Sod/Tazobactam (Sod 3.375 gm/ Sodium Chloride) 50 mls @ 12.5 mls/hr IV Q8H [facility]; Protocol Last Infusion: 09/23/25 01:45 Dose: Infused Vancomycin HCl 1,000 mg/ (Sodium Chloride) 250 mls @ 250 mls/hr IV ONCE ONE Stop: 09/22/25 20:14 Last Infusion: 09/22/25 22:45 Dose: Infused Insulin Glargine (Insulin Glargine 100 Units/1 Ml) 25 unit SUBCUT DAILY [facility] Last Admin: 09/22/25 04:15 Dose: 25 unit Lactulose (Lactulose Oral Liq 20 Gm/30 Ml Udc) 30 gm PO BID [facility] Last Admin: 09/22/25 17:22 Dose: 30 gm Morphine Sulfate (Morphine 4 Mg/Ml Sdv 1 Ml) 4 mg IVP ONCE ONE Stop: 09/21/25 10:09 Last Admin: 09/21/25 10:39 Dose: 4 mg Ondansetron HCl (Ondansetron 2 Mg/Ml Sdv 2 Ml) 4 mg IVP ONCE ONE Stop: 09/21/25 10:09 Last Admin: 09/21/25 10:39 Dose: 4 mg Pantoprazole Sodium (Pantoprazole 40 Mg Sdv) 40 mg IVP Q12H [facility] Last Admin: 09/22/25 17:22 Dose: 40 mg Potassium Chloride (Potassium Chloride Er 20 Meq Tablet) 20 meq PO ONCE ONE Stop: 09/21/25 19:24 Last Admin: 09/21/25 20:03 Dose: 20 meq Allergies pollen extracts Allergy (Verified 09/16/25 17:21) Unknown Home Medications fluticasone 100 mcg-salmeterol 50 mcg/dose blistr powdr for inhalation (Wixela Inhub) 1 inh inhalation BID 10/03/21 [History Confirmed 09/21/25] acetaminophen 325 mg tablet (Tylenol) 650 mg PO Q6H PRN Pain 07/02/23 [History Confirmed 09/21/25] flash glucose scanning reader (EmbanetStyle Jimi 2 [place]) #1 ea 08/25/23 [Rx Confirmed 09/21/25] FreeStyle Jimi 2 Sensor (flash glucose sensor) #6 ea 12/11/23 [Rx Confirmed 09/21/25] blood-glucose sensor (Dexcom G7 Sensor device) #3 ea 02/08/24 [Rx Confirmed 09/21/25] blood-glucose,special machine operator,cont (Dexcom G7 Card Hanger) #1 ea 02/08/24 [Rx Confirmed 09/21/25] albuterol sulfate 90 mcg/actuation aerosol inhaler 2 puff inhalation Q4H PRN Dyspnea 04/27/24 [History Confirmed 09/21/25] furosemide 20 mg tablet 20 mg PO DAILY 04/27/24 [History Confirmed 09/21/25] atorvastatin 80 mg tablet 80 mg PO DAILY 11/26/24 [History Confirmed 09/21/25] digoxin 125 mcg (0.125 mg) tablet 125 mcg PO DAILY 11/26/24 [History Confirmed 09/21/25] fluticasone propionate 50 mcg/actuation nasal spray,suspension 1 spray intranasal DAILY 11/26/24 [History Confirmed 09/21/25] hydrocodone 7.5 mg-acetaminophen 325 mg tablet 1 tab PO BID PRN Pain 11/26/24 [History Confirmed 09/21/25] insulin lispro 100 unit/mL subcutaneous pen See Rx Instructions .Route .COMPLEX 11/26/24 [History Confirmed 09/21/25] omeprazole 20 mg capsule,delayed release 20 mg PO DAILY 11/26/24 [History Confirmed 09/21/25] ondansetron HCl 4 mg tablet 4 mg PO TID PRN Nausea And Vomiting 11/26/24 [History Confirmed 09/21/25] fentanyl 100 mcg/hr transdermal patch 100 mcg transdermal .Q3D 06/06/25 [History Confirmed 09/21/25] insulin glargine 100 unit/mL (3 mL) subcutaneous pen (Lantus Solostar U-100 Insulin) 25 unit SUBCUT DAILY 06/06/25 [History Confirmed 09/21/25] insulin lispro 100 unit/mL subcutaneous pen 10 unit SUBCUT TIDWM 06/06/25 [History Confirmed 09/21/25] nystatin 100,000 unit/gram topical powder 1 applic topical TID 06/06/25 [History Confirmed 09/21/25] polyethylene glycol 3350 17 gram/dose oral powder (Miralax) 17 g PO DAILY PRN Constipation 06/06/25 [History Confirmed 09/21/25] simethicone 125 mg capsule See Rx Instructions .Route .COMPLEX PRN Gas 06/06/25 [History Confirmed 09/21/25] ciprofloxacin HCl 500 mg tablet (Cipro) 500 mg PO .three times a week 08/30/25 [History Confirmed 09/21/25] Lactobacillus acidophilus 25 million cell capsule 25 cell (0 x 25 million cell) PO DAILY 30 days #30 caps 09/08/25 [Rx Confirmed 09/21/25] ascorbic acid (vitamin C) 500 mg tablet (Vitamin C) 1,000 mg PO DAILY 09/08/25 [History Confirmed 09/21/25] honey 80 % topical gel ([email or web address] (honey)) 1 applic topical BID 09/08/25 [History Confirmed 09/21/25] methenamine hippurate 1 gram tablet 1 g PO BID 09/08/25 [History Confirmed 09/21/25] lactulose 10 gram/15 mL oral solution (Constulose) 30 g (45 mL) PO BID #3,785 mL 09/16/25 [Rx Confirmed 09/21/25] magnesium citrate 300 ml PO DAILY #296 mL 09/16/25 [Rx Confirmed 09/21/25] metronidazole 500 mg tablet 500 mg PO BID 7 days #14 tabs 09/16/25 [Rx Confirmed 09/21/25] ciprofloxacin HCl 500 mg tablet 500 mg PO Q12H through 09/23/25 09/21/25 [History Confirmed 09/21/25] Discharge Plan Discharge Patient Disposition: Xfer SNF Condition: Stable Prescriptions: No Action (DME) Dexcom G7 Sensor Device See Rx Instructions .Route Qty: 3 1RF Rx Instructions: As directed (DME) Dexcom G7 Card Hanger Misc See Rx Instructions .Route Qty: 1 0RF Rx Instructions: As directed (DME) FreeStyle Jimi 2 [place] Misc See Rx Instructions .Route Qty: 1 0RF Rx Instructions: As directed ciprofloxacin HCl [Cipro] 500 mg tablet 500 mg PO .three times a week (DME) FreeStyle Jimi 2 Sensor Kit See Rx Instructions .ROUTE .MEDSUPPLY Qty: 6 1RF Rx Instructions: change every 14 days fluticasone propion-salmeterol [Wixela Inhub] 100-50 mcg/dose Blister With Device 1 inh INHALATION BID acetaminophen [Tylenol] 325 mg Tablet 650 mg PO Q6H PRN (Reason: Pain) furosemide 20 mg tablet 20 mg PO DAILY albuterol sulfate 90 mcg/actuation HFA aerosol inhaler 2 puff INHALATION Q4H PRN (Reason: Dyspnea) insulin glargine [Lantus Solostar U-100 Insulin] 100 unit/mL (3 mL) insulin pen 25 unit SUBCUT DAILY fentanyl 100 mcg/hr patch 72 hour 100 mcg transdermal .Q3D nystatin 100,000 unit/gram powder 1 applic TOPICAL TID simethicone 125 mg Capsule See Rx Instructions .ROUTE .COMPLEX PRN (Reason: Gas) Rx Instructions: Give 1-2 capsules by mouth four times daily after meals and at bedtime as needed for gas. No more than 4 in 24 hours. insulin lispro 100 unit/mL Insulin Pen 10 unit SUBCUT TIDWM polyethylene glycol 3350 [Miralax] 17 gram/dose Powder 17 g PO DAILY PRN (Reason: Constipation) Lactobacillus acidophilus 25 million cell capsule 25 cell PO DAILY 30 Days Qty: 30 0RF ascorbic acid (vitamin C) [Vitamin C] 500 mg Tablet 1,000 mg PO DAILY methenamine hippurate 1 gram tablet 1 g PO BID MediHoney (honey) 80 % Gel 1 applic TOPICAL BID ciprofloxacin HCl 500 mg tablet 500 mg PO Q12H atorvastatin 80 mg tablet 80 mg PO DAILY hydrocodone-acetaminophen 7.5-325 mg tablet 1 tab PO BID PRN (Reason: Pain) digoxin 125 mcg (0.125 mg) tablet 125 mcg PO DAILY fluticasone propionate 50 mcg/actuation spray,suspension 1 spray INTRANASAL DAILY insulin lispro 100 unit/mL insulin pen See Rx Instructions .ROUTE .COMPLEX Rx Instructions: Injecr per sliding scale: bs<60, call MD. Bs 201-250=2 units, 251-300=4 units, 301-350=6 units, 351-400=8 units, bs greater than 400=8 units. Bs less than 60 or greater than 400x 3 consecutive times or symptomatic, call MD. ondansetron HCl 4 mg Tablet 4 mg PO TID PRN (Reason: Nausea And Vomiting) omeprazole 20 mg capsule,delayed release(DR/EC) 20 mg PO DAILY metronidazole 500 mg tablet 500 mg PO BID 7 Days Qty: 14 0RF magnesium citrate Solution 300 ml PO DAILY Qty: 296 0RF lactulose [Constulose] 10 gram/15 mL solution 30 g PO BID Qty: 3785 0RF Referrals: [facility] [Outside] Trisha Urena MD [Primary Care Provider, Family Practice] Discharge Diet: Advance as tolerated Discharge Activity: Resume usual activity Patient Instructions: Abdominal Pain (ED), Opioid Safety, Patient Portal & Jamie Instructions Transfer Attestations Time Spent in Transfer Care: greater than 30 min Specific Discharge Activities: educating patient, educating and/or supporting family/caregiver, discussing with pcp/other providers, discussing with manager of case/social workers/dc planners, documenting/other paperwork and evaluating patient/reviewing data Status at Transfer: Cognitive status at transfer: cognitively intact; Behavioral status at transfer: cooperative; Functional status at transfer: other assisted ambulation; Overall status at transfer: patient is not back to baseline Quality Metrics Clinical Quality Measures [ No reported AMI, CVA or VTE this stay] Coding Level of Care Code 42007 Diagnoses Complicated UTI (urinary tract infection) N39.0 RAI (acute kidney injury) N17.9 Mental depression F32.A Type 2 diabetes mellitus with diabetic polyneuropathy, with long-term current use of insulin E11.42; Z79.4 Diabetes mellitus correction insulin use: with superintendent container terminal use Diabetes mellitus complication status: with neurologic complications Diabetes mellitus complication detail: with polyneuropathy Hyperlipemia, mixed E78.2 Benign prostatic hyperplasia, unspecified whether lower urinary tract symptoms present N40.0 Lower urinary tract symptom presence: unspecified whether lower urinary tract symptoms present Paroxysmal atrial fibrillation I48.0 Atrial fibrillation type: paroxysmal Gastroesophageal reflux disease without esophagitis K21.9 Esophagitis presence: without esophagitis
== END 2025-09-25 19:55 | disposition short-term general hospital (02) | DRG 699 ==
LOC: ER 11:54 → ICU 15:05 → MEDSURG 20:43
PROVIDERS: Admitting Provider Internal Medicine; Emergency Provider Family Medicine; PCP Family Medicine; Visit Provider Student in an Organized Health Care Education/Training Program
DX: T83.512A Infection and inflammatory reaction due to nephrostomy catheter, initial encounter (principal); F02.83 Dementia in other diseases classified elsewhere, unspecified severity, with mood disturbance; N17.9 Acute kidney failure, unspecified; Y73.8 Miscellaneous gastroenterology and urology devices associated with adverse incidents, not elsewhere classified; E11.42 Type 2 diabetes mellitus with diabetic polyneuropathy; Z79.4 Long term (current) use of insulin; E78.2 Mixed hyperlipidemia; N40.1 Benign prostatic hyperplasia with lower urinary tract symptoms; I48.0 Paroxysmal atrial fibrillation; K21.9 Gastro-esophageal reflux disease without esophagitis; G30.1 Alzheimer's disease with late onset; G47.33 Obstructive sleep apnea (adult) (pediatric); I10 Essential (primary) hypertension; N32.89 Other specified disorders of bladder; L89.519 Pressure ulcer of right ankle, unspecified stage; Z91.199 Patient's noncompliance with other medical treatment and regimen due to unspecified reason; Z85.46 Personal history of malignant neoplasm of prostate; Z93.6 Other artificial openings of urinary tract status; Z98.1 Arthrodesis status; Z87.442 Personal history of urinary calculi; Z86.16 Personal history of COVID-19; Z82.49 Family history of ischemic heart disease and other diseases of the circulatory system
CPT/HCPCS: 36415; 36416; 74176; 80053; 80061; 80162; 80202; 81001; 82550; 82962; 83036; 83605; 83735; 85025; 87040; 87086; 87106; 93005; 94640; 96365; 96367; 96372; 96375; 99285; J1171; J1450; J1650; J1815; J2270; J2405; J2470; J2543; J3373; J7030; J7050; J7613; J7626; J9999